=== PATIENT | male | born 1970 | race Caucasian/White ===

== ENCOUNTER 2020-02-16 06:00 | Day surgery (SDC) | payer OTHER ==
[2020-02-11 10:21] VITALS: BMI 45.6
[2020-02-16] MEDS ORDERED: PROPOFOL 20 ML ONE ×2 (07:15→07:31)
[2020-02-16] MEDS ORDERED: KETAMINE HCL 500 MG/10 ML VIAL ONE ×2 (07:15→07:39)
[2020-02-16] MEDS ORDERED: SUCCINYLCHOLINE CHLORIDE 200 MG/10 ML SYRINGE ONE ×2 (07:15→07:31)
[2020-02-16 08:28] VITALS: TEMP 98.4
[2020-02-16 08:51] VITALS: BP 103/65; PULSE 80
== END 2020-02-16 09:00 | disposition home or self-care (01) ==
LOC: FECT 06:00
PROVIDERS: ATTEND Psychiatry & Neurology Psychiatry
PROC: GZB4ZZZ Other Electroconvulsive Therapy (ICD-10-PCS; principal; 2020-02-16 09:00)
DX: F33.2 Major depressive disorder, recurrent severe without psychotic features (principal)
CPT/HCPCS: 90870; 94760; U0003

== ENCOUNTER 2020-02-19 06:47 | Day surgery (SDC) | payer OTHER ==
[2020-02-11 10:27] VITALS: BMI 45.6
[2020-02-19] MEDS ORDERED: PROPOFOL 20 ML ONE (06:53)
[2020-02-19] MEDS ORDERED: SUCCINYLCHOLINE CHLORIDE 200 MG/10 ML SYRINGE ONE (06:54)
[2020-02-19] MEDS ORDERED: ONDANSETRON 4 MG/2 ML VIAL IVPUSH PRN (07:07)
[2020-02-19] MEDS ORDERED: LACTATED RINGERS SOLUTION 1,000 ML IV SCH (07:15)
[2020-02-19] MEDS ORDERED: KETAMINE HCL 500 MG/10 ML VIAL ONE (08:25)
[2020-02-19] MEDS ORDERED: ONDANSETRON 4 MG/2 ML VIAL ONE (08:31)
[2020-02-19] MEDS ORDERED: KETOROLAC TROMETHAMINE 30 MG/1 ML VIAL ONE (08:31)
[2020-02-19 09:34] VITALS: TEMP 97.7
[2020-02-19 10:18] VITALS: BP 105/61; PULSE 72
== END 2020-02-19 10:21 | disposition home or self-care (01) ==
LOC: FECT 06:47
PROVIDERS: ATTEND Psychiatry & Neurology Psychiatry
PROC: GZB4ZZZ Other Electroconvulsive Therapy (ICD-10-PCS; principal; 2020-02-19 08:30)
DX: F32.9 Major depressive disorder, single episode, unspecified (principal)
CPT/HCPCS: 90870; 94760; U0003

== ENCOUNTER 2020-02-23 06:51 | Day surgery (SDC) | payer OTHER ==
[2020-02-23 08:46] VITALS: TEMP 98
[2020-02-23 08:52] VITALS: BMI 48.1
[2020-02-23] MEDS ORDERED: KETAMINE HCL 500 MG/10 ML VIAL ONE (10:00)
[2020-02-23 11:30] VITALS: BP 114/70; PULSE 77
== END 2020-02-23 11:55 | disposition home or self-care (01) ==
LOC: FECT 06:51
PROVIDERS: ATTEND Psychiatry & Neurology Psychiatry
PROC: GZB4ZZZ Other Electroconvulsive Therapy (ICD-10-PCS; principal; 2020-02-23 08:00)
DX: F33.2 Major depressive disorder, recurrent severe without psychotic features (principal)
CPT/HCPCS: 90870; 94760; U0003

== ENCOUNTER 2020-02-26 06:44 | Day surgery (SDC) | payer OTHER ==
[2020-02-17 09:07] VITALS: BMI 48.0
[2020-02-26] MEDS ORDERED: KETAMINE HCL 500 MG/10 ML VIAL ONE (08:40)
[2020-02-26] MEDS ORDERED: KETOROLAC TROMETHAMINE 30 MG/1 ML VIAL ONE (08:43)
[2020-02-26] MEDS ORDERED: ONDANSETRON 4 MG/2 ML VIAL ONE (08:43)
[2020-02-26 09:47] VITALS: TEMP 97.6
[2020-02-26 10:09] VITALS: BP 110/77; PULSE 77
== END 2020-02-26 10:10 | disposition home or self-care (01) ==
LOC: FECT 06:44
PROVIDERS: ATTEND Psychiatry & Neurology Psychiatry
PROC: GZB4ZZZ Other Electroconvulsive Therapy (ICD-10-PCS; principal; 2020-02-26 08:30)
DX: F32.9 Major depressive disorder, single episode, unspecified (principal)
CPT/HCPCS: 90870; 94760

== ENCOUNTER 2020-02-27 06:51 | Day surgery (SDC) | payer OTHER ==
[2020-02-24 09:12] VITALS: BMI 48.1
[2020-02-27] MEDS ORDERED: KETAMINE HCL 500 MG/10 ML VIAL ONE (08:00)
[2020-02-27 09:12] VITALS: TEMP 98.2
[2020-02-27 09:37] VITALS: BP 105/75; PULSE 74
== END 2020-02-27 09:30 | disposition home or self-care (01) ==
LOC: FECT 06:51
PROVIDERS: ATTEND Psychiatry & Neurology Psychiatry
PROC: GZB4ZZZ Other Electroconvulsive Therapy (ICD-10-PCS; principal; 2020-02-27 08:30)
DX: F32.9 Major depressive disorder, single episode, unspecified (principal)
CPT/HCPCS: 90870; 94760; U0003

== ENCOUNTER 2020-03-02 08:53 | Day surgery (SDC) | payer OTHER ==
[2020-03-02 09:30] VITALS: BMI 48.1
[2020-03-02] MEDS ORDERED: KETAMINE HCL 200 MG/20 ML VIAL ONE (11:02)
[2020-03-02 12:05] VITALS: TEMP 97.8
[2020-03-22] MEDS ORDERED: LACTATED RINGERS SOLUTION 1,000 ML IV SCH (08:15)
[2020-03-30 09:43] VITALS: BP 103/73; PULSE 79
== END 2020-03-02 12:20 | disposition home or self-care (01) ==
LOC: FECT 08:53
PROVIDERS: ATTEND Psychiatry & Neurology Psychiatry
PROC: GZB4ZZZ Other Electroconvulsive Therapy (ICD-10-PCS; principal; 2020-03-02 10:00)
DX: F32.9 Major depressive disorder, single episode, unspecified (principal)
CPT/HCPCS: 90870; 94760; U0003

== ENCOUNTER 2020-03-04 06:24 | Day surgery (SDC) | payer OTHER ==
[2020-02-24 10:34] VITALS: BMI 48.0
[2020-03-04] MEDS ORDERED: KETAMINE HCL 500 MG/10 ML VIAL ONE (08:28)
[2020-03-04] MEDS ORDERED: ONDANSETRON 4 MG/2 ML VIAL ONE (08:32)
[2020-03-04] MEDS ORDERED: PROPOFOL 20 ML ONE (08:32)
[2020-03-04] MEDS ORDERED: SUCCINYLCHOLINE CHLORIDE 200 MG/10 ML SYRINGE ONE (08:32)
[2020-03-04] MEDS ORDERED: KETOROLAC TROMETHAMINE 30 MG/1 ML VIAL ONE (08:32)
[2020-03-04 09:16] VITALS: TEMP 97.7
[2020-03-04 10:01] VITALS: BP 120/78; PULSE 78
== END 2020-03-04 10:04 | disposition home or self-care (01) ==
LOC: FECT 06:24
PROVIDERS: ATTEND Psychiatry & Neurology Psychiatry
PROC: GZB4ZZZ Other Electroconvulsive Therapy (ICD-10-PCS; principal; 2020-03-04 08:30)
DX: F32.9 Major depressive disorder, single episode, unspecified (principal)
CPT/HCPCS: 90870; 94760; U0003

== ENCOUNTER 2020-03-08 07:58 | Day surgery (SDC) | payer OTHER ==
[2020-02-26 08:43] VITALS: BMI 48.0
[2020-03-08] MEDS ORDERED: KETAMINE HCL 500 MG/10 ML VIAL ONE (08:55)
[2020-03-08 10:14] VITALS: BP 117/77; PULSE 84; TEMP 98
== END 2020-03-08 10:15 | disposition home or self-care (01) ==
LOC: FECT 07:58
PROVIDERS: ATTEND Psychiatry & Neurology Psychiatry
PROC: GZB4ZZZ Other Electroconvulsive Therapy (ICD-10-PCS; principal; 2020-03-08 07:00)
DX: F33.2 Major depressive disorder, recurrent severe without psychotic features (principal)
CPT/HCPCS: 90870; 94760; U0003

== ENCOUNTER 2020-03-11 09:26 | Day surgery (SDC) | payer OTHER ==
[2020-03-02 16:56] VITALS: BMI 48.1
[2020-03-11] MEDS ORDERED: KETAMINE HCL 500 MG/10 ML VIAL ONE (10:14)
--- OUTSIDE RECORDS SUMMARY | 2020-03-11 10:18 | XMS ---
:1970 Author Organization [facility] Care Team Providers Name Role Phone RITIKA [...] is protected by Article 27-F of the [place] State Public Health law. If you continue you may haveaccess to information: Regarding HIV / AIDS; Provided by facilities licensed or operated by the [facility] Office of Mental Health; or Provided by the [facility] Office for People With Developmental Disabilities. If such information is present, then the following [facility] mandated warning applies: This information has been [...] law may result in a fine or custodial sentence or both. A general authorization for the release of medical or other information is NOT sufficient authorization for further disclosure. Encounters Encounter Providers Location Date Indications Data Source(s ) Outpatient 01/08/2020 03:30:00 [facility] Bela PM EDT - 01/12/2020 [facility] 10:23:35 AM EDT Patient discharged. Attender: MARIYA CATHERINE 01/01/2020 12:00:00 AM Bon [facility] Attender: MAURICIO 12/30/2019 12:00:00 AM [facility] Attender: MARIYA CATHERINE 12/29/2019 12:00:00 AM [facility] 12/25[facility]2019 04:00:00 PM [facility] 06:48:40 [facility] PM EDT Patient discharged. OL 12/25/2019 [facility] 11:59:00 PM EDT Attender: MARIYA 12/25/2019 12:00:00 AM [facility] Attender: SUSI LONGO 12/25/2019 12:00:00 AM [facility] Attender: MAURICIO 12/24/2019 12:00:00 AM [facility] Attender: MARIYA 12/22/2019 12:00:00 AM [facility] Attender: SUSI LONGO 12/22/2019 12:00:00 AM [facility] Attender: MAURICIO 12/19/2019 12:00:00 AM [facility] Attender: MARIYA 12/18/2019 12:00:00 AM [facility] Attender: GLADIS FUNEZ 12/18/2019 12:00:00 AM [facility] Attender: SUSI LONGO 12/17/2019 12:00:00 AM [facility] Attender: MAURICIO 12/16/2019 12:00:00 AM [facility] Attender: MARIYA 12/15/2019 12:00:00 AM [facility] Attender: XANDER COLBERT 12/13/2019 12:00:00 AM Bon [facility] Outpatient 12/12/2019 12:00:00 PM Francisco Javier n [facility] EDT - 12/12/2019 [facility] 01:20:23 PM EDT Patient discharged. Attender: ROSSI 12/08/2019 05:55:36 [facility]2020 [facility] 12:00:00 AM EDT System In c Inpatient Admitter: RITIKA 12/05/2019 12:00:00 General [facility] AM EDT - 12/08/2019 [facility] 03:44:00 PM EDT General Weakness Patient discharged. Outpatient 12/05/2019 12:00:00 AM EDT [facility] 12/01/2019 03:45:00 PM EDT - [facility] 12/01/2019 05:01:16 PM EDT Inc Patient discharged. Outpatient 11/14/2019 01:00:00 PM EDT - [facility] 11/18/2019 11:56:43 AM EDT System Inc Patient discharged. Outpatient 11/10/2019 09:00:00 AM EDT - [facility] 11/10/2019 04:44:05 PM EDT System Inc Patient discharged. Inpatient Admitter: RITIKA CANAS 10/29/2019 12:00:00 AM let hargic [facility] EDT - 11/03/2019 [facility] 04:02:00 PM EDT lethargic Patient discharged. Outpatient 09/15/2019 08:22:58 AM EDT [facility] - 09/15/2019 11:59:00 PM Hospital EDT Outpatient 09/10/2019 04:00:00 PM EDT [facility] Outpatient 09/04/2019 03:15:00 PM EDT [facility] Outpatient 08/19/2019 07:31:00 AM EST [facility] ([facility]) Outpatient 08/18/2019 06:35:00 AM EST [facility] ([facility]) Outpatient 08/17/2019 07:16:00 AM EST [facility] ([facility]) Emergency 08/16/2019 12:00:00 AM EST Shortness of Breath [facility] - 08/16/2019 10:45:00 PM Hospital EST Shortness of Breath Patient discharged. Outpatient 08/11/2019 12:05:00 AM EST [facility] Emergency 08/10/2019 12:00:00 AM EST - Chest P ain [facility] 08/11/2019 01:42:00 AM EST Hospital Chest Pain Patient discharged. Outpatient 07/21/2019 04:15:00 PM EST - [facility] 07/22/2019 10:51:43 AM EST System Inc Patient discharged. Immunizations Vaccine Date Status Description Data Source(s) New in 2012. 09/04/2019 completed Influenza 09/04/2019 [facility] IIV4 12:00:00 AM EDT Vaccine (Quad) [facility] IIV3. This is one 07/19/2018 completed Influenza 07/19/2018, [facility] of two codes 12:00:00 AM EST Vaccine 04/30/2014 Bela replacing CVX 15, He alth which is being [employer] retired. Influenza, 04/01/2016 completed Influenza 04/01/2016 [facility] injectable, MDCK, 12:00:00 AM EDT Vaccine (Quad) Psychiatric preservative [facility] quadrivalent Tdap 12/11/2014 completed Tdap 12/11/2014 [facility] 12:00:00 AM EDT [facility] [employer] [facility] IIV3. This is one 04/30/2014 completed Influenza 07/19/2018, [facility] of two codes 12:00:00 AM EST Vaccine 04/30/2014 Bela replacing CVX 15, He alth which is being [employer] retired. RAMAKRISHNA 06/12/2013 completed Influenza 06/12/2013 [facility] 12:00:00 AM EST Vaccine Moira ity (Trivalent) [facility] Medications Medication Brand Start Product Dose Route Administrative Pharmacy [facility] Indications Reaction Description Data Name Date Form Instructions Instructions Source(s) Propranolol propra 10 mg Oral active essential T stephanie 1 Tab Bon Hydrochlori noloL 2019 tremor by mouth S ecours de 10 MG (BETO 12:00: three (3) Ch arity Oral Tablet AL) 10 00 AM times maty [facility] propranoloL mg EDT Indications: System Inc [...] Tablet tablet 5 mg EDT dose (after Psychiatric OLANZapine last Health (ZyPREXA) modification) S ystem tablet 5 mg on [employer] 12/09/19 at 0900, Until Discontinued Medication [...] on Sun Bela OLANZapine mg 12/07/19 at [facility] (ZyPREXA) 1400, Until Sys tem tablet 2.5 Discontinued I nc mg Medication administered onsite [place] lithium 12/07/2019 300 Oral active 300 mg , Oral, Bon Carbonate carbonate SR 02:00:00 PM mg 2 TIMES DAILY, [facility] 300 MG (LITHOBID) EDT First dose o n Bela Extended tablet 300 Sun 0 at [facility] Release Oral mg 1400, Until System Tablet Discontinued Inc lithium carbonate SR (LITHOBID) tablet 300 mg Medication administered onsite Losartan losartan 12/07/2019 50 Oral active 50 m g, Oral, Bon Potassium 50 (COZAAR) 01:00:00 PM mg D AILY, [facility] MG Oral tablet 50 EDT dose on Sun Bela Tablet mg 12/07/19 at [facility] losartan 1300, Until Syst em (COZAAR) Discontinued Inc tablet 50 mg Medication administered onsite furosemide 74330-712-95 12/07/2019 20 IntraVENous complete d 20 mg, [...] 12/13/19 at 0900 Medication administered onsite furosemide 26433-428-08 12/06/2019 20 IntraVENous complete d edema 20 [...] il mg Discontinued Medication administered onsite 0.9% 7416-3780-00 12/05/2019 100 IntraVENous aborted 100 mL/hr, at [...] mg tablet Inc Shared psychotic disorder (HCC) [place] lithium 11/30/2019 aborted Bon Carbonate 300 carbonate [...] (DULCOLAX) 5 Inc mg EC tablet cariprazine 358036 11/01/2019 6 mg Oral active 6 m [...] t dose on Bela hydrocortisone 11/01/19 at [facility] (HYTONE) 2.5 % 1800, Unti l System ointment Discontinued Inc Medication administered onsite Docusate docusate 10/31/2019 200 Oral active 200 mg, Oral, Bon Sodium 100 sodium 02:00:00 PM mg DAILY , [facility] MG Oral (COLACE) EDT dose on Sun C harity Capsule capsule 200 10/31/19 at [facility] docusate mg 1400, Until Syst em sodium [...] haloperidoL tablet 5 mg EDT ONCE, 1 Psychiatric (HALDOL) dose, [facility] tablet 5 mg Denise System 10/30/19 [facility] at 2100 Medication administered onsite amitriptyline 10/30/2019 150 mg Oral active 1 50 mg, Oral, Bon (ELAVIL) tablet 09:00:00 PM EV AN BEDTIME, [facility] 150 mg EDT First dose on [facility] ity Denise 10/30/19 at [facility] 2100, Until System I nc Discontinued Medication administered onsite Haloperidol 2 haloperidoL 10/30/2019 2 mg Oral aborted 2 mg, Oral, Bon MG Oral (HALDOL) 08:01:20 PM EVERY 6 [facility] Tablet tablet 2 mg EDT HOURS Ch arity haloperidoL NEEDED, [facility] h (HALDOL) Starting Denise Sys tem tablet 2 mg 10/30/[address] [facility] 2000, Until 10/31/19 at 2043, Psychosis, Agitation Medication administered onsite [place] lithium 10/30/2019 300 Oral active 300 mg , Oral, Bon Carbonate carbonate 12:00:00 PM mg 2 T IMES DAILY, [facility] 300 MG Oral tablet 300 EDT First d ose on Bela Tablet mg Denise 10/30/19 at [facility] lithium 1200, Until Syste m carbonate Discontinued In c tablet 300 mg Medication administered onsite Clonazepam 1 clonazePAM 10/30/2019 1 mg Oral active 1 mg, Oral, 2 Bon MG Oral (KlonoPIN) 12:00:00 PM TIME S DAILY, [facility] Tablet tablet 1 mg EDT First dose on Psychiatric clonazePAM [facility] 10/30/19 at [facility] (KlonoPIN) 1200, Until Sy stem tablet [address] [facility] Medication administered onsite 0.9% 4521-8625-27 10/29/2019 100 IntraVENous aborted 100 mL/hr, at Bon sodium 02:55:00 PM mL/h 100 mL/hr, [facility] chloride EDT IntraVENous, Jagruti rity infusion CONTINUOUS, [facility] Starting Wed System 10/29/[address] [facility] 1455, Until 11/01/19 at 1446 Medication administered onsite 0.4 ML enoxaparin 10/29/2019 40 SubCUTAneous active 40 mg, Bon Enoxaparin (LOVENOX) 02:55:00 PM mg Gallardo bCUTAneous, [facility] sodium 100 injection 40 EDT EVERY 24 Bela MG/ML mg HOURS, [facility] Prefilled dose on Sun Sys tem Syringe 10/29/[address] [facility] enoxaparin 1455, Until (LOVENOX) Discontinued injection 40 mg Medication administered onsite Acetaminophen acetaminophen 10/29/2019 650 Oral active 650 mg, Oral, Bon 325 MG Oral (TYLENOL) 02:44:40 PM mg E VERY 4 HOURS [facility] Tablet tablet 650 mg EDT NEEDED , Bela acetaminophen Starting We [facility] (TYLENOL) [facility] mg 1444, Until Inc Discontinued, Mild Pain, Fever Medication administered onsite sodium 26684-008-57 10/29/2019 mL IntraVENous active 5-40 mL, Bon chloride 02:00:00 PM IntraVENo us, [facility] (NS) flush EDT EVERY 8 Charit y 5-40 mL HOURS, First [facility] dose on Sun System 10/29/19 at Inc 1400, Until Discontinued Medication administered onsite sodium 50944-671-19 10/29/2019 mL IntraVENous active 5-40 mL, Bon [...] XL) 150 mg tablet Vraylar 3 mg 78080-370-09 09/03/2019 6 Oral aborted depre ssion Take [...] EST NOW, 1 Bela chewable tablet dose, [facility] 162 mg 08/16/19 System at 2103 Inc Medication administered onsite famotidine 08/16/2019 20 IntraVENous aborted 20 mg, Bon (PF) (PEPCID) 09:02:00 PM mg Intr aVENous, [facility] 20 mg in 0.9% EST EVERY 12 Ch arity sodium HOURS, [facility] chloride 10 dose on Sat S ystem mL injection 08/16/19 at [facility] 2102, Until Discontinued Medication administered onsite methylPREDNISolone 423969 08/16/2019 125 IntraVENous comple hyun 125 mg, Bon (PF) (Solu-MEDROL) 09:02:00 PM mg IntraVENous, [facility] injection 125 mg EST NOW, 1 d ose, Bela 08/16/19 Health at 2102 System Inc Medication administered onsite 0.9% 9073-3551-71 08/16/2019 1000 IntraVENous completed 1,000 mL, at [...] mg tablet for 3 System days. Inc [place] lithium 08/16/2019 2 Oral active Take 2 [...] back pain due to trauma VRAYLAR 6 81027-093-49 07/07/2019 6 mg Oral aborted Bipolar Take [...] System DAILY Inc NEEDED FOR ANXIETY cariprazine 154387 6 mg Oral aborted Take 6 B [...] ID Covered Covered Policy Plan Coverage type constitution party ID constitution party's [place] Inform ation relationship to bol[place] [facility] [id number] [facility] [id number] [facility]ALTH [facility] [id number] [facility] HMO [id number] [facility] Commerical [id number] [facility] [id number] [facility] [id number] HEALTH PLAN [facility] [id number] PLAN [facility] [id number] 900 HEALTH PLAN POLO [id number] POLO [id number] CIGNA O [id number] [facility] PPO [id number] [place] 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 [id number] [facility] [id number] 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 [id number] COMPENSATION [facility] [id number] GENERIC [id number] COMMERCIAL [facility] [id number] PLAN [facility] GENERIC Commerical [id number] [facility] PPO [id number] PLAN [facility] [id number] PLAN 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 [id number] [facility] [id number] [facility] HEALTH [facility] PPO [id number] [place] [address] Problems, Conditions, and Diagnoses Code Display Name Description Problem Type Effective Data Dates Source(s) T88.7XXA Cak-dspl-kgtkiwe Ghs-igvp-bdmzxil [id number] 12/05/2019 Francisco Javier n [facility] adverse reaction to adverse reaction to 12:00:0 0 AM Bela medication medication [facility] [employer] [facility] T50.905A Adverse drug Adverse drug 97589461 12/05/2019 [place] s reaction, initial reaction, initial 12:00:00 AM Psychiatric encounter encounter [facility] [employer] G93.40 Encephalopathy acute Encephalopathy acute 85153913 12/04 [facility] 12:00:00 AM Bela Jooce [employer] F31.4 Bipolar disorder Bipolar disorder 55637147 10/29/2019 Francisco Javier n [facility] with severe with severe 12:00:00 AM Bela depression depression [facility] [employer] E55.9 Vitamin D deficiency Vitamin D deficiency 11800140 09/03 [facility] 12:00:00 AM [facility] [employer] [facility] F41.8 Mixed anxiety and Mixed anxiety and [id number] 09/04/2019 [facility] depressive disorder depressive disorder 12:00:0 0 AM [email or web address] E66.01 Morbid obesity Morbid obesity 85818956 07/21/2019 [facility] 12:00:00 AM [employer] Z98.84 Status post gastric Status post gastric 06121017 020 [facility] bypass for obesity bypass for obesity 12:00:00 AM [employer] F32.9 Depressive disorder Depressive disorder [id number] 020 [facility] 12:00:00 AM [employer] F31.9 Bipolar disorder Bipolar disorder 19089143 07/21/2019 Francisco Javier n [facility] 12:00:00 AM [employer] F41.9 Anxiety Anxiety 61573259 07/21/2019 [facility] 12:00:00 AM [employer] F32.9 Depression Depression 10650958 07/20/2018 [facility] 12:00:00 AM [employer] E66.01 Severe obesity Severe obesity 99578434 07/19/2018 [facility] 12:00:00 AM [employer] [id number] Spells Spells 47377757 04/08/2016 [facility] 12:00:00 AM [email or web address] G40.909 Seizure disorder Seizure disorder 01305851 04/30/2014 Francisco Javier n [facility] 12:00:00 AM [employer] M79.2 Neuropathic pain of Neuropathic pain of 06542752 014 [facility] shoulder shoulder 12:00:00 AM [employer] G47.00 Insomnia Insomnia 48465746 11/04/2013 [facility] 12:00:00 AM [employer] Z98.84 H/O gastric bypass H/O gastric bypass 89484230 3 [facility] 12:00:00 AM [employer] G25.2 Other specified Other specified Diagnosis 01/08/2020 [facility] forms of tremor forms of tremor 03:17:29 PM [facility] [employer] F31.4 Bipolar disorder, Bipolar disorder, Diagnosis 12/25/2019 [facility] - current episode current episode 04:40:00 PM Goo d depressed, severe, depressed, severe, EDT Yazidi without psychotic without psychotic Hospital features features F41.9 Anxiety disorder, Anxiety disorder, Diagnosis 12/25/2019 [facility] unspecified unspecified 04:04:24 PM [facility] R25.1 Tremor, unspecified Tremor, unspecified Diagnosis 020 [facility] 04:04:24 PM [facility] Z98.84 Bariatric surgery Bariatric surgery Diagnosis 12/25/2019 [facility] status status 04:04:24 PM [facility] T88.7XXA Unspecified adverse Unspecified adverse Diagnosis 020 [facility] - effect of drug or effect of drug or 11:10:37 AM Good medicament, initial medicament, initial [facility] encounter encounter Hospital G93.40 Encephalopathy, Encephalopathy, Diagnosis 12/05/2019 [facility] - unspecified unspecified 11:10:37 AM [facility] R41.82 Altered mental Altered mental Diagnosis 12/05/2019 [facility] - status, unspecified status, unspecified 11:10:3 7 AM [facility] F51.04 Psychophysiologic Psychophysiologic Diagnosis 11/14/2019 [facility] insomnia insomnia 01:22:52 PM [facility] F32.2 Major depressive Major depressive Diagnosis 09/15/2019 [facility] - disorder, single disorder, single 08:22:58 AM G ood episode, severe episode, severe EDT Aidan ritan without psychotic without psychotic Hospital features features F41.8 Other specified Other specified Diagnosis 09/04/2019 [facility] anxiety disorders anxiety disorders 03:49:01 PM [facility] F32.2 Major depressive Major depressive Diagnosis 09/04/2019 Francisco Javier n [facility] disorder, single disorder, single 03:49:01 PM C harity episode, severe episode, severe EDT Heal th without psychotic without psychotic System Inc features features Z23 Encounter for Encounter for Diagnosis 09/04/2019 [facility] immunization immunization 03:49:01 PM [facility] T78.40XA Allergy, Allergy, Diagnosis 08/16/2019 [facility] - unspecified, initial unspecified, initial 08:39 :16 PM Good encounter encounter [facility] R06.00 Dyspnea, unspecified Dyspnea, unspecified Diagnosis 08/10 [facility] - 11:27:27 PM [facility] F31.75 Bipolar disorder, in Bipolar disorder, in Diagnosis 07/21 [facility] partial remission, partial remission, 04:40:28 PM Bela most recent episode most recent episode EST Health depressed depressed [facility] [phone] essential tremor Diagnosis [facility] [id number] Bipolar disorder Diagnosis [facility] with severe Psychiatric depression ([facility]) [facility] [id number] Anxiety Diagnosis Bon [facility] [phone] hypertension Diagnosis Bon [facility] [phone] depression Diagnosis [facility] [phone] depression Diagnosis [facility] [phone] edema Diagnosis [facility] [phone] depression Diagnosis [facility] [phone] evangelina associated Diagnosis [facility] with bipolar [facility] 1255 1255 hypertension Diagnosis [facility] [id number] Anxiety Diagnosis Bon [facility] 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 [id number] Acute low back pain Diagnosis Bon [facility] due to trauma [facility] [id number] Bipolar disorder, in Diagnosis [facility] partial remission, Charit y most recent episode Healt h depressed ([facility]) System In c [id number] Herpes zoster Diagnosis Bon [facility] cephalicus [facility] Surgeries/Procedures Procedure Description Date Indications Data Source(s) HC HC Routine 12/25/2019 Bipolar 12/25/2019 Bipolar Francisco Javier n LITHIUM LITHIUM 4:41 PM EDT disorder 04:41:00 PM disorde r [facility] with severe EDT with severe Psychiatric depression depression He alth ([facility]) ([facility]) System Inc Bipolar disorder with severe depression ([facility]) GLUCOSE, POC GLUCOSE, POC Routine 12/08/2019 12/08/2019 Bon 11:35 AM 11:35:00 AM Sec ours EDT EDT [facility] METABOLIC METABOLIC Routine 12/07/2019 12/07/2019 Bon PANEL, BASIC PANEL, BASIC 4:40 AM EDT 04:40:00 A M [facility] EEG 12-26 HR EEG 12-26 HR Routine 12/06/2019 12/06/2019 Bon W/VIDEO W/VIDEO 10:25 AM 10:25:08 AM [facility] LITHIUM HC LITHIUM Routine 12/06/2019 12/06/2019 Bon 4:25 AM EDT 04:25:00 AM [facility] HC LACTIC ACID HC LACTIC ACID STAT 12/05/2019 020 Bon 7:20 PM EDT 07:20:00 PM [facility] HC AMMONIA HC AMMONIA STAT 12/05/2019 12/05/2019 Bon 7:20 PM EDT 07:20:00 PM [facility] MRI BRAIN WO MRI BRAIN WO STAT 12/05/2019 12/05/2019 Bon CONT CONT 4:50 PM EDT 04:50:12 PM [facility] EEG 12-26 HR EEG 12-26 HR STAT 12/05/2019 12/05/2019 Bon W/VIDEO W/VIDEO 3:19 PM EDT 03:19:24 PM [facility] CULTURE, URINE CULTURE, URINE Routine 12/05/2019 020 Bon 2:45 PM EDT 02:45:00 PM [facility] URINALYSIS W/ URINALYSIS W/ STAT 12/05/2019 0 Bon RFLX RFLX 2:45 PM EDT 02:45:00 PM [facility] MICROSCOPIC MICROSCOPIC [facility] BILIRUBIN, BILIRUBIN, Routine 12/05/2019 12/05/2019 Bon CONFIRM CONFIRM 2:45 PM EDT 02:45:00 PM [facility] HC LACTIC ACID HC LACTIC ACID STAT 12/05/2019 020 Bon 12:40 PM 12:40:00 PM [facility] C[facility]URE HC CULTURE STAT 12/05/2019 12/05/2019 Bon BLOOD BLOOD 12:38 PM 12:38:00 PM Sec ours EDT EDT [facility] PROTHROMBIN PROTHROMBIN STAT 12/05/2019 12/05/2019 Bon TIME + INR TIME + INR 12:38 PM 12:38:00 PM [facility] EDT EDT [facility] CBC WITH CBC WITH STAT 12/05/2019 12/05/2019 Bon AUTOMATED DIFF AUTOMATED DIFF 12:38 PM 12:38:00 PM [facility] EDT EDT [facility] HC TROPONIN I HC TROPONIN I STAT 12/05/2019 0 Bon QUANT QUANT 12:38 PM 12:38:00 PM Sec ours EDT EDT [facility] METABOLIC METABOLIC STAT 12/05/2019 12/05/2019 Bon PANEL, PANEL, 12:38 PM 12:38:00 PM Sec ours COMPREHENSIVE COMPREHENSIVE EDT EDT [facility] MAGNESIUM MAGNESIUM STAT 12/05/2019 12/05/2019 Bon 12:38 PM 12:38:00 PM Sec ours EDT EDT [facility] HC LITHIUM HC LITHIUM STAT 12/05/2019 12/05/2019 Bon 12:38 PM 12:38:00 PM Sec ours EDT EDT [facility] CT HEAD WO CT HEAD WO STAT 12/05/2019 12/05/2019 Bon CONT CONT 12:30 PM 12:30:54 PM Sec ours EDT EDT [facility] HC CULTURE HC CULTURE STAT 12/05/2019 12/05/2019 Bon BLOOD BLOOD 12:30 PM 12:30:00 PM Sec ours EDT EDT [facility] XR PELV AP XR PELV AP STAT 12/05/2019 12/05/2019 Bon ONLY ONLY 12:14 PM 12:14:58 PM Sec ours EDT EDT [facility] XR CHEST PORT XR CHEST PORT STAT 12/05/2019 0 Bon 12:14 PM 12:14:51 PM Sec ours EDT EDT [facility] RT--OXYGEN RT--OXYGEN STAT 12/05/2019 12/05/2019 Bon CANNULA CANNULA 11:20 AM 11:20:37 AM [facility] EDT EDT [facility] EEG DIGITAL EEG DIGITAL Routine 12/05/2019 12/05/2019 Bon ANALYSIS ANALYSIS 11:10 AM 11:10:37 AM S [facility] EDT EDT [facility] CBC WITH CBC WITH STAT 10/30/2019 10/30/2019 Bon AUTOMATED DIFF AUTOMATED DIFF 6:40 AM EDT 06:40: 00 AM [facility] EDT [facility] METABOLIC METABOLIC STAT 10/30/2019 10/30/2019 Bon PANEL, BASIC PANEL, BASIC 6:40 AM EDT 06:40:00 A M [facility] EDT [facility] URINALYSIS W/ URINALYSIS W/ STAT 10/29/2019 0 Bon RFLX RFLX 6:34 PM EDT 06:34:00 PM [facility] MICROSCOPIC MICROSCOPIC EDT [facility] XR CHEST PORT XR CHEST PORT STAT 10/29/2019 0 Bon 12:09 PM 12:09:04 PM [facility] EDT EDT [facility] CT HEAD WO CT HEAD WO STAT 10/29/2019 10/29/2019 Bon CONT CONT 11:47 AM 11:47:42 AM [facility] EDT EDT [facility] HC GLUCOSE HC GLUCOSE Routine 10/29/2019 10/29/2019 Bon POCT POCT 11:26 AM 11:26:00 AM [facility] EDT EDT [facility] PROTHROMBIN PROTHROMBIN STAT 10/29/2019 10/29/2019 Bon TIME + INR TIME + INR 10:45 AM 10:45:00 AM [facility] EDT EDT [facility] CBC WITH CBC WITH STAT 10/29/2019 10/29/2019 Bon AUTOMATED DIFF AUTOMATED DIFF 10:45 AM 10:45:00 AM [facility] EDT EDT [facility] HC PARTIAL HC PARTIAL STAT 10/29/2019 10/29/2019 Bon THROMBOPLASTIN THROMBOPLASTIN 10:45 AM 10:45:00 AM [facility] / PTT / PTT EDT EDT [facility] METABOLIC METABOLIC STAT 10/29/2019 10/29/2019 Bon PANEL, PANEL, 10:45 AM 10:45:00 AM [facility] COMPREHENSIVE COMPREHENSIVE EDT EDT [facility] HC LITHIUM HC LITHIUM STAT 10/29/2019 10/29/2019 Bon 10:45 AM 10:45:00 AM [facility] EDT EDT [facility] XR SPINE LUMB XR SPINE LUMB Routine [...] n [facility] 9:00 PM EST 02:00:00 AM [facility] I nc CBC WITH AUTOMATED CBC WITH STAT 08/16/2019 0 [facility] DIFF AUTOMATED DIFF 9:00 PM EST 02:00:00 AM [facility] I nc TROPONIN I TROPONIN I STAT 08/16/2019 08/17/2019 [facility] 9:00 PM EST 02:00:00 AM [facility] I nc METABOLIC PANEL, METABOLIC PANEL, STAT 08/16/2019 [facility] COMPREHENSIVE COMPREHENSIVE 9:00 PM EST 02:00:00 AM [facility] I nc MAGNESIUM MAGNESIUM STAT 08/16/2019 08/17/2019 [facility] 9:00 PM EST 02:00:00 AM [facility] I nc LITHIUM LITHIUM STAT 08/16/2019 08/17/2019 Francisco Javier n [facility] 9:00 PM EST 02:00:00 AM [facility] I nc INFLUENZA A <td><content ID="[id number]">INFLUENZA A & B 07/26 Bon & B AG AG (RAPID 05:18:00 AM [facility] (RAPID TEST) TEST)</content></td><td>STAT</td><td>08/11/2019 [facility] 12:18 AM EST</td><td></td><td><paragraph Health styleCode="header">Results for this procedure are System in the <content Inc styleCode="[id number]">results section</content>.</paragraph></td> PROTHROMBIN PROTHROMBIN STAT 08/11/2019 08/11/2019 Bon TIME + INR TIME + INR 12:01 AM 05:01:00 AM [facility] D DIMER D DIMER STAT 08/11/2019 08/11/2019 Francisco Javier n 12:01 AM 05:01:00 AM Sec [facility] CBC WITH CBC WITH STAT 08/11/2019 08/11/2019 Bon AUTOMATED DIFF AUTOMATED DIFF 12:01 AM 05:01:00 AM [facility] PTT PTT STAT 08/11/2019 08/11/2019 Francisco Javier n 12:01 AM 05:01:00 AM Sec [facility] TROPONIN I TROPONIN I STAT 08/11/2019 08/11/2019 Bon 12:01 AM 05:01:00 AM Sec ours [facility] METABOLIC METABOLIC STAT 08/11/2019 08/11/2019 Bon PANEL, PANEL, 12:01 AM 05:01:00 AM [facility] COMPREHENSIVE COMPREHENSIVE [facility] MAGNESIUM MAGNESIUM STAT 08/11/2019 08/11/2019 Bon 12:01 AM 05:01:00 AM Sec [facility] LITHIUM LITHIUM STAT 08/11/2019 08/11/2019 Francisco Javier n 12:01 AM 05:01:00 AM Sec [facility] LACTIC ACID LACTIC ACID STAT 08/11/2019 08/11/2019 Bon 12:01 AM 05:01:00 AM Sec [facility] BNP BNP STAT 08/11/2019 08/11/2019 Francisco Javier n 12:01 AM 05:01:00 AM Sec [facility] RT--OXYGEN RT--OXYGEN STAT 08/10/2019 08/11/2019 Bon CANNULA CANNULA 11:51 PM 04:51:27 AM Sec [facility] EST EST Bela [employer] [facility] EKG, 12 LEAD, EKG, 12 LEAD, STAT 08/10/2019 0 Bon INITIAL INITIAL 10:14 PM 03:14:27 AM Sec [facility] EST EST [facility] XR SMALL BOWEL XR SMALL BOWEL Routine 08/02/2018 Morbid 019 Morbid Bon SERIES SERIES 11:01 AM obesity 04:01:14 PM obesity [facility] EST (HCC) EST (HCC) [facility] Morbid obesity (HCC) CBC WITH AUTOMATED CBC WITH STAT 07/12/2018 9 [facility] DIFF AUTOMATED DIFF 12:40 AM EST 05:40:00 AM [facility] I nc TROPONIN I TROPONIN I STAT 07/12/2018 07/12/2018 [facility] 12:40 AM EST 05:40:00 AM [facility] I nc METABOLIC PANEL, METABOLIC PANEL, STAT 07/12/2018 [facility] COMPREHENSIVE COMPREHENSIVE 12:40 AM EST 05:40:0 0 AM [facility] I nc MAGNESIUM MAGNESIUM STAT 07/12/2018 07/12/2018 [facility] 12:40 AM EST 05:40:00 AM [facility] I nc RT--OXYGEN CANNULA RT--OXYGEN STAT 07/12/2018 019 [facility] CANNULA 12:21 AM EST 05:21:15 AM [facility] I nc Results ID Date Data Source [id number] 03/04/2020 09:50:00 AM EDT [facility] Name Value Range Interpretation Description Data Sup porting Code Source(s) Document(s ) SARS [facility] coronavirus 2 RNA This lab was ordered by KANG moy [facility] and reported by [facility]. ID Date Data Source [id number] 03/02/2020 12:15:00 PM EDT [facility] Name Value Range Interpretation Description Data Sup porting Code Source(s) Document(s ) SARS [facility] coronavirus 2 RNA This lab was ordered by KANG FRANCISCO and reported by [facility]. ID Date Data Source [id number] 02/27/2020 09:15:00 AM EDT [facility] Name Value Range Interpretation Description Data Sup porting Code Source(s) Document(s ) SARS [facility] coronavirus 2 RNA This lab was ordered by [facility] and reported by [facility]. ID Date Data Source [id number] 02/23/2020 11:40:00 AM EDT [facility] Name Value Range Interpretation Description Data Sup porting Code Source(s) Document(s ) SARS [facility] coronavirus 2 RNA This lab was ordered by [facility] and reported by [facility]. ID Date Data Source [id number] 02/19/2020 09:56:00 AM EDT [facility] Name Value Range Interpretation Description Data Sup porting Code Source(s) Document(s ) SARS [facility] coronavirus 2 RNA This lab was ordered by [facility] and reported by [facility]. ID Date Data Source [id number] 02/16/2020 08:40:00 AM EDT [facility] Name Value Range Interpretation Description Data Sup porting Code Source(s) Document(s ) SARS [facility] coronavirus 2 RNA This lab was ordered by [facility] and reported by [facility]. ID Date Data Source [id number] 02/13/2020 10:05:00 AM EDT [facility] Name Value Range Interpretation Description Data Sup porting Code Source(s) Document(s ) SARS [facility] coronavirus 2 RNA This lab was ordered by [facility] and reported by [facility]. ID Date Data Source [id number] 02/09/2020 10:25:00 AM EDT [facility] Name Value Range Interpretation Description Data Sup porting Code Source(s) Document(s ) SARS [facility] coronavirus 2 RNA This lab was ordered by [facility] and reported by [facility]. ID Date Data Source [id number] 01/25/2020 09:20:00 AM EDT [facility] Name Value Range Interpretation Description Data Sup porting Code Source(s) Document(s ) 2019 Novel [facility] Coronavirus RNA Interpretation Unspecified Specimen Qualitative CATA Probe Detection This lab was ordered by [place] [id number] [address] [facility]. ID Date Data Source [id number] 12/25/2019 05:54:30 PM EDT [facility] Name Value Range Interpretation Description Data Sup porting Code Source(s) Document(s ) [place] 0.38 0.6-1.2 Below low normal [facility] [Moles/volu MMOL/L [facility]] in Hospital Serum or Plasma ID Date Data Source [id number] 12/23/2019 01:50:56 PM EDT [facility] Discharge SummaryPatient: Maxwell mackey Sex: male DOA: 12/05/2019Date of : 1970 A ge: 49 y.o. LOS: LOS: 3 daysAdmit Date: 12/05/2019Discharge Date: 12/08/2019 Admission Diagnoses: Encephalopathy acute [G93.40];Cgl-gsaw-mgfggox adversereactio n to medication [T88.7XXA];Pws-tais-knhvjak adverse reaction tomedication [T88.7XXA] Discharge Diagnoses: #1 [...] ICD-10-CM: T50.905AICD -9-CM: E947.9 12/05/2019 - Present Zgz-bjrq-vrpsbfy adverse reaction to med ication ICD-10-CM: T88.1AEHSUC-0-BB: 995.20 12/05/2019 - Present Bipolar disorder wit [...] E66.01ICD-9-CM: 278.01 07/19/2018 - Present Spells ICD-10-CM: [id number]: IMO00 01 04/08/2016 - Present Seizure disorder [...] ECT treatment currently n ot availablesecondary to [facility]-19 pandemicConsults: Neurology and Psychiat rySignificant Diagnostic Studies: labs: Microbiology: , radiology: and EEGDisc harge Medications: @DISCHARGEMEDLIST@Activity: Activity as tolerated and PT/OT per Home HealthDiet: Regular DietWound Care: None neededFollo w-up:to follow in office in one weekRitika Canas MD Name Value Range Interpretation Code Description Data Melani rce(s) Supporting Document(s ) ID Date Data Source [id number] 12/09/2019 02:14:04 PM EDT [facility] - [facility] referral made. Walker order faxed t o [facility] [facility] and [facility] do NOT acc ept pts insurance.Faxed to Moriah at [facility] at FAX [phone]. She reports they ne ed to get authfor walker. Have instucted pt to buy own walker IF not authorized.He i s agreeable to buying walker if needs to.Care Management InterventionsPCP Verified by CM: YesTransition of Care Consult (CM Consult[facility] Home Car e: YesCurrent Support Network: Own Home, Lives with SpouseThe Patient and/or Prachi ent Compound Machine Operator was Provided with a Choice of Providerand Agrees with the Discharge Plan?: YesFreedom of Choice List was Provided with Basic Dialogue that Suppor ts thePatient's Individualized Plan of Care/Goals, Treatment Preferences and Sh aresthe Quality Data Associated with the Providers?: YesVeteran Resource Informat ion Provided?: RefusedDischarge LocationDischarge Placement: Home [facility] BY [facility])Pt is discharged , picking him up. reports she has phone number tomake pt a follow up psych appt. [facility] to visit. will buy walker if not [...] Supporting Document(s ) ID Date Data Source [id number] 12/08/2019 03:06:17 PM EDT [facility] I have reviewed discharge instructions w ith [...] Supporting Document(s ) ID Date Data Source [id number] 12/08/2019 03:02:56 PM EDT [facility] Per your note, pt with acute encephalopa thy and toxic Serum [place] level.Please specify the type of encephalopathy in yo ur progress notes: Toxic encephalopathy due to lithium Metabolic encephalopathy due to Other cause (please specify) Clinically unable to determine UnknownPLEASE DOCUM ENT ANY ADDITIONAL DIAGNOSES AND/OR SPECIFICITY IN THE PROGRESSNOTES AND/OR DISCHARGE SUMMARY. Name Value Range Interpretation Code Description Data Melani rce(s) Supporting Document(s ) ID Date Data Source [id number] 12/08/2019 02:40:45 PM EDT [facility] Problem: SuicideGoal: *STG: Remains safe in hospital12/08/2019 [...] Basilio Moshercome: Progressing Towards GoalGoal: *LTG: Identifies Capstory12/08/2019 1440 by Basilio Moshercome: Resolved/Met12/08/2019 1439 by [...] Fall R isk and appropriate interventions in [facility].12/08/2019 1440 by Divya Moshertcome: Resolved/MetNote: Fall Risk [...] Document Harsh Scale and appropriate interventions in [facility] t.12/08/2019 1440 by Ru Mosher: Resolved/MetNote: Pressure [...] Supporting Document(s ) ID Date Data Source [id number] 12/08/2019 02:40:17 PM EDT [facility] Problem: SuicideGoal: *STG: Remains safe in hospitalOutcome: [...] Supporting Document(s ) ID Date Data Source [id number] 12/08/2019 01:18:54 PM EDT [facility] General Daily Progress NoteAdmit Date: Hospital day: .tdSubjective:Psycgm Neuro,and PT assessments reviewed. Patie nt qualifies for discharge. Wifecalled, will bring in clothes. New medical regimen di scussed with the . Willneed [place] level later this week.Current Facility-Adminis tered MedicationsMedication [...] past 8 hrs: BP Temp Pulse Resp PvR43212/07 0816 - - - - 96 %12/08/19 [...] initial encounter (12/05/2019)Active Problems: Encephalopathy acute (12/05/2019) Iak-ecbw-omkyupm adve rse reaction to medication (12/05/2019)Plan: day of discharge. Name Value Range Interpretation Code Description Data Melani rce(s) Supporting Document(s ) ID Date Data Source [id number] 12/08/2019 12:09:30 PM EDT [facility] Problem: Mobility Impaired (Adult and Pe diatric)Goal: [...] y.o. male)Date: 12/08/2019Primary Diagnosis: E ncephalopathy acute [G93.40]Kgk-dywz-saoxyci adverse reaction to medication [T88.7XXA ]Iry-qbdp-reermdc adverse reaction to medication [T88.7XXA]Precautions: Fall ASSESSMENT [...] ty or mortality cardiac cath at [facility] approx 6-8 months ago Other unknown [...] NoneCritical Beh avior:Neurologic State: AlertOrientation Level: Oriented C5Enioteebc: Appropriate for age attention/concentration;Follows commandsSafety/Judgement: Decreased awar [...] Supporting Document(s ) ID Date Data Source [id number] 12/08/2019 11:48:26 AM EDT [facility] Name Value Range Interpretation Description Data Sup porting Code Source(s) Document(s ) Glucose 132 MG/DL 65-110 Above high normal [facility] [Mass/volume] [facility] in Blood by Hospital Automated test strip ID Date Data Source [id number] 12/08/2019 10:35:45 AM EDT [facility] S/O Patient has shown improvement. He re ports that medications are helping him.He denies any side effectsHe denies any cecilia cidal thoughtsHe reports that he sees a psychiatrist [facility] 300 mg bid [place] level in two days Will increase Zyprexa 5 mg Will follow up as requested Name Value Range Interpretation Code Description Data Melani rce(s) Supporting Document(s ) ID Date Data Source [id number] 12/08/2019 07:28:52 AM EDT [facility] Bedside and Verbal shift change report g yesseniaen to TRAM Hurely (oncoming nurse) Annalise DE LEON RN (offgoing nurse). Repor t included the followinginformation SBAR, Kardex, MAR and Recent Results. Name Value Range Interpretation Code Description Data [facility] rce(s) Supporting Document(s ) ID Date Data Source [id number] 12/07/2019 08:26:02 PM EDT [facility] Problem: Falls - Risk ofGoal: *Absence o [...] Supporting Document(s ) ID Date Data Source [id number] 12/07/2019 07:05:28 PM EDT [facility] Verbal shift change report given to Chandrakant Cox RN (oncoming nurse) by Steven Villalobos RN (offgoing nurse). Report inc luded the following information SBAR, Kardex,Intake/Output, MAR, Recent Result s and Cardiac Rhythm on telemetry. Name Value Range Interpretation Code Description Data Melani rce(s) Supporting Document(s ) ID Date Data Source [id number] 12/07/2019 01:30:56 PM EDT [facility] Trent Jacob MD[address] [place] [address] [id number].[facility] Progress NotePatient: Maxwell Bray Sex: male DOA: [...] (LOVENOX) injection 40 mg 40 mg SubCUTAneous F85DNxqjaycpk:Visit VitalsBP 153/85 (BP 1 Location: Left arm, BP Prachi ent Position: At rest)Pulse 96Temp 98.7 F (37.1 C)Resp 20Ht 5' 5.75" (1.67 m)Wt 3 01 lb 1.6 oz (136.6 kg)SpO2 96%BMI 48.97 kg/m Body mass index is 48.97 kg/m .Patient V itals for the past 24 hrs: Temp Pulse Resp BP SkA63912/07/19 1249 - 96 - 153/85 - 0 [...] the time notated as "note time" in [facility]. 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 Seizure disorder ([facility]) G40.909 Spells SSE9099 Severe obesity (HCC) E66.01 Depression F32.9 Anxiety F41.9 Bipolar disorder (HCC) F31.9 Depressive disorder F32.9 Status post g astric bypass for obesity Z98.84 Morbid obesity (HCC) E66.01 Mixed anxiety and depressive disorder F41.8 Vitamin D deficiency E55.9 Bipolar disorder with severe depression ([facility]) F31.4 Encephalopathy acute G93.40 Adverse drug reaction, ini tial encounter T50.905A Kwz-uozh-qmypwxf adverse reaction to medication T88.7XXA 49 year [...] Supporting Document(s ) ID Date Data Source [id number] 12/07/2019 01:02:36 PM EDT [facility] and discussed with Dr Canas .Pt is tearful flat and denies any suicidal thoughts , has been depressed withlithiu m on hold , No Vraylar and he is unable to get his ECT at [facility] And no w will be with [facility] with Dr Womack his lithium level is un therape utic range I will start on lithium , add 2.5mg of zyprexa and lower his klonopin And increase his elavil to 200 mg HSWill get pt followed up with Psychiatry Name Value Range Interpretation Code Description Data Melani rce(s) Supporting Document(s ) ID Date Data Source [id number] 12/07/2019 12:52:32 PM EDT [facility] Problem: Fluid Volume - Risk of, Imbalan cedGoal: *Balanced intake and outputOutcome: Progressing Towards GoalProblem: Patient Education: Go to Patient Education ActivityGoal: Patient/Family EducationOu tcome: Progressing Towards Goal Name Value Range Interpretation Code Description Data Melani rce(s) Supporting Document(s ) ID Date Data Source [id number] 12/07/2019 12:45:20 PM EDT [facility] Problem: Falls - Risk ofGoal: *Absence o [...] Bra den Scale and appropriate interventions in [facility].Outcome: Progressing Toward s GoalNote: Pressure Injury [...] Supporting Document(s ) ID Date Data Source [id number] 12/07/2019 12:24:47 PM EDT [facility] General Daily Progress NoteAdmit Date: Hospital day: [...] injection 40 mg 40 mg SubCUTA neous X31FMhggmusby:Patient Vitals for the past 8 hrs: BP Temp Pulse Resp VcD34112/06 0956 147/86 98.7 F (37.1 C) 95 [...] initial encounter (12/05/2019)Active Problems: Encephalopathy acute (12/05/2019) Qma-vrsw-uuyzyab adve rse reaction to medication (12/05/2019)Plan:To increase activity, diet,klonopin. 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 Jacob. Name Value Range Interpretation Code Description Data Melani rce(s) Supporting Document(s ) ID Date Data Source [id number] 12/07/2019 10:08:27 AM EDT [facility] [place], [place] [address]ZFNBUXY: MAXWELL BRAYMRN: [id number]: [id number]#: [id number] DATE: 12/05/2019LONG TERM MONITORING VIDEO CELLULOSE INSULATION HELPER: Riky Rodriguez HISTORY: The patient is a [...] montages. Digital analysis was performed employing an Zeppelin neuralnetwork program with parameterization and statistical analysi [...] seen, that attenuates with eye opening.There was smnd-kq-wubyfpfm gener alized background slowing.There was no clear focal slowing.ACTIVATION TECHNIQUES: Ph otic stimulation and hyperventilation were notperformed.SLEEP: During drowsiness, there is mild attenuation and slowing of thebackground rhythm. There was normal sleep seen including symmetric vertexwaves, sleep spindles, and K-complexes.OTHER AC TIVITY: There were no clear epileptiform discharges and no seizures orclinical ev ents recorded.DIGITAL ANALYSIS: Variable spectral pattern without significant lef v-gk-nsinultqyrbiifzb. Spikes were artifact in nature.DECEMBER 06 DAILY [...] the awake and asleep states due to wrcb-ch-gwszwscb diffuse cerebraldysfunc tion that improves to mild over the course of the recording. TRENT Gerry JACOB, MDDD: #12/06/2019 10:21:35/SS /[id number]/[id number] #: [id number] / [id number] Name Value Range Interpretation Code Description Data Melani rce(s) Supporting Document(s ) ID Date Data Source [id number] 12/07/2019 07:45:20 AM EDT [facility] Bedside and Verbal shift change report cristi Dove RN (3Loria) (oncomingnurse) by Vy Green RN (offgoing nurse). Report included the following information SBAR, Kardex, MARand Recent Results. Name Value Range Interpretation Code Description Data [facility] rce(s) Supporting Document(s ) ID Date Data Source [id number] 12/07/2019 07:22:41 AM EDT [facility] All leads and head wrapping intact. Day 2 LTM complete. Awaiting instructions tocontinue for day 3 or DC. Name Value Range Interpretation Code Description Data [facility] rce(s) Supporting Document(s ) ID Date Data Source [id number] 12/07/2019 05:19:11 AM EDT [facility] Name Value Range Interpretation Description Data Sup porting Code Source(s) Document(s ) Sodium 138 136-145 [facility] [Moles/volume] mmol/L [facility] in Serum or Hospital Plasma Potassium 3.5 3.5-5.1 [facility] [Moles/volume] mmol/L [facility] in Serum or Hospital Plasma Chloride 106 98-107 [facility] [Moles/volume] mmol/L [facility] in Serum or Hospital Plasma Carbon 27 21-32 [facility] dioxide, total mmol/L [facility] [Moles/volume] Hospital in Serum or Plasma Anion gap in 10 10-20 [facility] Serum or mmol/L [facility] Plasma Hospital Glucose 140 74-106 Above high normal [facility] [Mass/volume] mg/dL [facility] in Serum or Hospital Plasma Urea nitrogen 19 mg/dL 7-18 Above high normal [facility] [Mass/volume] [facility] in Serum or Hospital Plasma Creatinine 0.94 0.70-1.3 [facility] [Mass/volume] mg/dL 0 [facility] in Serum or Hospital Plasma Glomerular >60 [facility] filtration [facility] rate/1.73 sq M Hospital predicted among blacks [Volume Rate/Area] in Serum or Plasma by Creatinine-bas ed formula (MDRD) Glomerular >60 [facility] filtration Y[facility]idi rate/1.73 sq M Hospital predicted among non-blacks [Volume Rate/Area] in Serum or Plasma by Creatinine-bas ed formula (MDRD) (NOTE)Estimated GFR is calculated using the Modification of Diet in RenalDisease (MDRD) Study equation, reported for both Americans(GFRAA) and non- Americans (GFRNA), and normalized to 1.7 4t6fvyz surface area. The physician must decide which value applies tothe patient . The MDRD study equation should only be used inindividuals age 18 or older. It has no t been validated for thefollowing: women, patients with serious comorbid co nditions,or on certain medications, or persons with extremes of body size,muscl e mass, or nutritional status. Calcium [Mass/volume] in Serum 9.1 mg/dL 8.5-10.1 [facility] or Plasma Hospital ID Date Data Source [id number] 12/06/2019 08:12:24 PM EDT [facility] Bedside and Verbal shift change report cristi Loyd RN (oncoming nurse) Estephania Wakefield RN (offgoing nurse). Report included the followinginformation SBAR, Kardex, MAR, Recent Results, and Med Rec Status. Name Value Range Interpretation Code Description Data Melani rce(s) Supporting Document(s ) ID Date Data Source [id number] 12/06/2019 04:57:12 PM EDT [facility] General Daily Progress NoteAdmit Date: Hospital day: [...] (LOVENOX) injection 40 mg 40 mg SubCUTAneous P65INdfarwhus:Patient Vi tals for the past 8 hrs: BP Temp Pulse Resp VqL26712/06/19 1547 (!) 164/100 99.6 F (3 7.6 [...] Time: 12/06/19 4:25 AMResult Value Ref Range [place] level 1.09 0.6 - 1.2 MMOL/L Xr [...] initial encounter (12/05/2019)Active Problems: Encephalopathy acute (12/05/2019) Gih-btto-wfuaunw adve rse reaction to medication (12/05/2019)Plan:To reduce iv fluids, repeat lasix Name Value Range Interpretation Code Description Data Melani rce(s) Supporting Document(s ) ID Date Data Source [id number] 12/06/2019 04:14:48 PM EDT [facility] Consult NoteSubjective:Landen t: Maxwell Bray [...] of morbidity or mortality cardiac cath at [facility] approx 6-8 months ago Other unknown and unspecified cause of morbidity or mortal ity concussions Other unknown and unspecified cause of morbidity or mortal ity "periodic disorientation" Other unknown and unspecified cause of morbidity or mo rtality anxiety Psychiatric disorder anxiety, depressionPsychiatric History: Patient reported he was receiving care in outpatient from [facility] psychiatrist bu t did not discuss details.Substance Use History:Social HistorySubstance and Sexu al ActivityAlcohol Use No Frequency: Never Drinks per session: 1 or 2 Binge freque ncy: NeverSocial HistorySubstance and Sexual ActivityDrug Use NoObjective:Vitals/Phys ical Assessment:Patient Vitals for the past 8 hrs: BP Temp Pulse Resp JoI39712/06/19 081 3 (!) 153/94 100.4 F (38 [...] encounter (12/05/2019)A ctive Problems: Encephalopathy acute (12/05/2019) Kij-lbrs-tzuyxtw adverse re action to medication (12/05/2019)Plan:No current [...] Supporting Document(s ) ID Date Data Source [id number] 12/06/2019 01:18:16 PM EDT [facility] Trent Jacob MD[address], [address] [place] [address] [id number] Progress NotePatient: Maxwell Bray Sex: male DOA: 12/05/2019Date of : 1970 Age: 49 y.o. LOS: LOS: 1 daySubjective:Awake, alert, tremulous, no current complaintsEEG w/ mild to mod gen slowREVIEW OF SYSTEMS: NO CP, SOB, N,V,D, F,CCurrent Facility-Administered MedicationsMedication Dose Route Frequen cy 0.9% sodium chloride infusion 125 mL/hr IntraVENous CONTINUOUS enoxaparin (LOVE NOX) injection 40 mg 40 mg SubCUTAneous S40QAsoowaptk:Visit VitalsBP (!) 153/94 (BP 1 Location: Left arm, BP Patient Position: At rest)Pulse 100Temp 100.4 F (38 C)Resp 18Ht 5' 5.75" (1.67 m)Wt 300 lb (136.1 kg)SpO2 96%BMI 48.79 kg/m Body mass index is 48.79 kg/m .Patient Vitals for the past 24 hrs: Temp Pulse Resp BP HeU94012/06/19 0813 100.4 F (38 C) 100 18 [...] past 24 hours were reviewed both during [employer] daily workflow process and at the time notated as "note time" in [facility]. (It is not time stamped separately in [...] Time: 12/06/19 4:25 AMResult Value Ref Range [place] level 1.09 0.6 - 1.2 MMOL/LCT Results [...] hic pain of shoulder M79.2 Seizure disorder ([facility]) G40.909 Spells SEH1324 Severe ob esity ([facility]) E66.01 Depression F32.9 Anxiety F41.9 Bipolar disorder ([facility]) F31.9 Dep ressive disorder F32.9 Status post gastric bypass for obesity Z98.84 Morbid obesit y ([facility]) E66.01 Mixed anxiety and depressive disorder F41.8 Vitamin D deficiency E55 .9 Bipolar disorder with severe depression ([facility]) F31.4 Encephalopathy acute G93.40 Adverse drug reaction, initial encounter T50.905A Kdj-mtgi-icglqmn adverse react ion to medication T88.7XXA49 year [...] Supporting Document(s ) ID Date Data Source [id number] 12/06/2019 11:43:34 AM EDT [facility] day 1 complete. All leads and head wrapping intact. Day 2 LTM studycommenced and LIVE via WIFI on [facility]. 06/28 Name Value Range Interpretation Code Description Data Melani rce(s) Supporting Document(s ) ID Date Data Source [id number] 12/06/2019 10:48:32 AM EDT [facility] Care Management InterventionsPCP Verifie d by CM: YesCurrent Support Network: Own Home, Lives with SpouseThe Patient and/o r Patient Compound Machine Operator was Provided with a Choice of Providerand Agrees with the Di milton Plan?: YesFreedom of Choice List was Provided with Basic Dialogue that Suppor ts thePatient's Individualized Plan of Care/Goals, Treatment Preferences and Sh aresthe Quality Data Associated with the Providers?: YesVeteran Resource Informat ion Provided?: RefusedDischarge LocationDischarge Placement: HomeCASE YUE LORENZ PSYCHOSOCIAL ASSESSMENTBrian F Asa Admission Marlon e: 12/05/2019MRN: [id number] of : 1970Current date: 12/06/2019 DISCHARGE PLAN: Patient is a 49 year old male admitted to [facility]. CM attempted toreach hi m via [...] services. Open for SNF. Family would like [facility]. CM CCLINKD. CM willfollow.Patient Information:Patients Preferred Name: Glilian anPatidonna Arrived Via: StretcherInformation Obtained From: Spouse(Spouse [...] NoPCP: Ritika Canas MDAdmitting Provider: DIANA Lucero [facility] BINDERY MANAGER: N/APayor: P ayor: [facility] HEALTH PLAN / Plan: [facility] HEALTH PLAN /Product Type: O /Secondary Payor : @SECINSGROUPNAME@Encephalopathy acute [G93.40]Del-uihe-okmzwdj adverse reactio n to medication [T88.7XXA]Pbe-vsmg-vamjrqc adverse reaction to medication [T88.7XXA ]Patient Active Problem ListDiagnosis Code H/O gastric bypass Z98.84 Insomnia G47. 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 Seizure disorder (HCC) G40.909 Spells I [id number] Severe obesity (HCC) E66.01 Depression F32.9 Anxiety F41.9 Bipolar disorder (HCC) F31.9 Depressive disorder F32.9 Status post gastric bypass for ob esity Z98.84 Morbid obesity (HCC) E66.01 Mixed anxiety and depressive disorder F4 1.8 Vitamin D deficiency E55.9 Bipolar disorder with severe depression (HCC) F3 1.4 Encephalopathy acute G93.40 Adverse drug reaction, initial encounter T50.905 A Gak-daww-egysoam adverse reaction to medication T88.7XXASocial HistorySubstan ce [...] Supporting Document(s ) ID Date Data Source [id number] 12/06/2019 07:40:06 AM EDT [facility] 1938: Patient found in bed resting quiet [...] withinreach. Admission done via telephone with pt Balnca.2143: Pt n ow oriented to person, place, and situation; disoriented to time. Ptstates he is not in any pain, and is comfortable. Will continue to monitor.Bedside and Verbal s hift change report given to Shanelle Wakefield RN (oncomingnurse) by Светлана Carter RN (offgoing nurse). Report included the followinginformation SBAR, ED Summary, M AR and Recent Results. Name Value Range Interpretation Code Description Data [facility] rce(s) Supporting Document(s ) ID Date Data Source [id number] 12/06/2019 05:07:27 AM EDT [facility] Name Value Range Interpretation Description Data Sup porting Code Source(s) Document(s ) [place] 1.09 0.6-1.2 [facility] [Moles/volu MMOL/L [facility]] in Hospital Serum or Plasma ID Date Data Source [id number] 12/05/2019 07:59:09 PM EDT [facility] Name Value Range Interpretation Description Data Sup porting Code Source(s) Document(s ) Ammonia 16 UMOL/L 11-32 [facility] [Moles/volum [facility] e] in Plasma Hospital ID Date Data Source [id number] 12/05/2019 07:56:38 PM EDT [facility] Name Value Range Interpretation Description Data Sup porting Code Source(s) Document(s ) Lactate 0.9 0.4-2.0 [facility] [Moles/volu MMOL/L [facility] me] in Hospital Serum or Plasma ID Date Data Source [id number] 12/05/2019 06:42:57 PM EDT [facility] 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 LTM comm enced and LIVE via WIFI on [facility] 06/28 Name Value Range Interpretation Code Description Data Melani rce(s) Supporting Document(s ) ID Date Data Source [id number] 12/05/2019 06:07:34 PM EDT [facility] [id number] [facility] [employer] [facility] 4T OR THOPEDICS [address] [facility] [address] [phone] Maxwell Bray (Male) [id number] ES I 3 ED Dispo:ADMIT Chief Complaint: Fall, Fatigue Diagnosis: Altered mental status, unspecified altered mental status type [] Adverse drug reaction, initial encounter [] Encephalopathy acute [] Obv-qdwj-bqqrgdh adverse effect of medication, subsequent encounter [] Bipolar disorder with severe depression (HCC) [] H/O gastric bypass [] Andrez nt Providers: Attending: Patsy Manzo; Kristy Otero; Cristi Canas Consulting Provider: Jose Centeno; Cristi Canas; Javier Khan; Cristi Frazier Primary Nurse: BAILEY GambleN: [phone] [employer] [id number] - [facility] MrnMRN: [id number] [employer] [id number] - [facility] Age SexDOB 1970 AGE 49 SEX Male Primary Care Provider: Ritika Canas MD Phone: Allergies: (No Known Allergies)Date Reviewed: 12/05/2019Reviewed by: Ritika Canas MD - Review CompleteED Provider Notes: All notesHNO ID: [id number]: Julio Manzo MDService: EMERGENCYAuthor Type: Physici anFiled: [...] morbidity or mortality cardiac cath at [facility] approx 6-8 months ag o Other [...] week Gets together: Once a week Attends pentecostal service: More than 4 times per year [...] Calculation (Bez et) 515 ms Calculated P [place] 40 degrees Calculated R [place] 41 degrees Calculated T [place] 147 degrees Diagnosis Sinus tachycardiaProbable left atrial [...] Time: 12/05/19 12:38 PMResult Value Ref Range [place] level 1 .53 (HH) 0.6 - 1.2 MMOL/LLACTIC ACID Collection Time: 12/05/19 12:40 PMResult Value Ref Range Lactic acid 1.1 0.4 - 2.0 MMOL/LEKG:Sinus tachycardia at 100 BPM, normal axis, nothing acute.Interpreted by Julio Manzo MD11:20 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Interpreted [...] mental status, unspecified altered mental status type R41.85668.97Patient c ondition at time of disposition: StableI [...] thediagnostic studies, unless otherwise noted.+ED Orde rs [id number] 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 - ED ONLY [#[id number]] Priority: STAT Class: Hospital Performe d Standing Order Information Remaining Occurrences:0 Interval:Continuous Last release d:12/05/2019 Released orders: SunDec 05, 2019 11:20 AM by: JULIO MANZO Type: -> Bedside N [id number] PULSE OXIMETRY CONTINUOUS [#[id number]] Priority: STAT Class: Hospital Performe d Standing Order Information Remaining Occurrences:0 Interval:CONTINUOUS Last release d:12/05/2019 Released orders: SunDec 05, 2019 11:20 AM by: JULIO MANZO [id number] PULSE OXIMETRY SPOT CHECK [#[id number]] Priority: STAT Class: Hospital Performed Standing Order Inf ormation Remaining Occurrences:0/1 Interval:ONE TIME Last released:12/05/2019 Release d orders: SunDec 05, 2019 11:20 AM by: JULIO MANZO [id number] OBTAIN OLD EKG [ #[id number]] Priority: Routine Class: Hospital Performed Standing Order Information Remainin g Occurrences:0/1 Interval:ONE TIME Last released:12/05/2019 Released orders : SunDec 05, 2019 11:20 AM by: JULIO MANZO [id number] 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 - ED ONLY [# [id number]] Priority: STAT Class: Hospital Performed Type: -> Bedside Released on: 12/05/2019 11:20 AM [id number] PULSE OXIMETRY CONTINUOUS [#[id number]] Priority: STAT Class: Hospital Performe d Released on: 12/05/2019 11:20 AM [id number] PULSE OXIMETRY SPOT CHECK [#[id number]] Priori ty: STAT Class: Hospital Performed Released on: 12/05/2019 11:20 AM [id number] OBTAIN OLD EKG [#[id number]] Priority: STAT Class: Hospital Performed Released on: 12/05/2019 11:20 AM [id number] VITAL SIGNS PER UNIT ROUTINE [#[id number]] Priority: STAT Class: Hospital Performed Stand ing Order Information Remaining Occurrences:0/1 Interval:CONTINUOUS Last released :12/05/2019 Released orders: SunDec 05, 2019 2:41 PM by: RITIKA CANAS Comment:More frequent ly if Indicated. [id number] BEDREST, COMPLETE [#[id number]] Priority: STAT Class: H ospital Performed Standing Order Information Remaining Occurrences:0/1 Interval:CONTIN UOUS Last released:12/05/2019 Released orders: SunDec 05, 2019 2:41 PM by: RITIKA CANAS [id number] NOTIFY PROVIDER: VITAL SIGNS CHANGES [#[id number]] Priority: STAT Class: Hospital Performe d Standing [...] Less than 120 ml in 4 hours [id number] APPLY/MAINTAIN SEQUENTIAL COMPRESSIO* [# [id number]] Priority: STAT Class: Hospital Performed Standing Order Information Remaining Occurre nces:0/1 Interval:CONTINUOUS Last released:12/05/2019 Released orders: SunDec 05, 2019 2:41 PM by: RITIKA CANAS [id number] VITAL SIGNS PER UNIT ROUTINE [#[id number]] Priorit y: STAT Class: Hospital Performed Comment:More frequently if Indicated. Released on: 12/05/2019 2 :41 PM [id number] BEDREST, GALLO [#[id number]] Priority: STAT Class: Hospital Performe d Released on: 12/05/2019 2:41 PM [id number] NOTIFY PROVIDER: VITAL SIGNS CHANGES [#[id number]] Priority: STAT Class: Hospital Performed Temp -> [...] carmen rs Released on: 12/05/2019 2:41 PM [id number] APPLY/MAINTAIN SEQUENTIAL COMPRESSIO* [#[id number]] P riority: STAT Class: Hospital Performed Released on: 12/05/2019 2:41 PM [id number] RT--OXYGEN CANNULA [#[id number]] Priority: STAT Class: Hospital Performed Standing Order Information Remaining Occurrences:0/1 Interval:CONTINUOUS Last released:12/05/2019 Released o rders: SunDec 05, 2019 11:20 AM by: JULIO MANZO LPM -> 2 Indications for O2? -> CHEST PAIN [id number] RT--OXYGEN CANNULA [#[id number]] Priority: STAT Class: Hospital Performe d LPM -> 2 Indications for O2? -> CHEST PAIN Released on: 12/05/2019 11:20 AM [id number] DIET NPO [#[id number]] Canceled Priority: STAT Class: Hospital Performed Cancele d by RITIKA CANAS on SunDec 05, 2019 2:41 PM Reason: None Comment: Standing Order Information Remaining Occurrences:0/1 Interval:DIET EFFECTIVE NOW Last released:12/05/2019 Release d orders: SunDec 05, 2019 11:20 AM by: JULIO MANZO NPO options: -> With Meds [id number] DIET NPO [#[id number]] Canceled Priority: STAT Class: Hospital Performed Cancele d by RITIKA CANAS on SunDec 05, 2019 2:41 PM Reason: None Comment: NPO options: -> With Meds Released on: 12/05/2019 11:20 AM [id number] DIET NPO [#[id number]] Priority: S TAT Class: Hospital Performed Standing Order Information Remaining Occurrences:0/1 Inter haile:DIET EFFECTIVE NOW Last released:12/05/2019 Released orders: SunDec 05, 2019 2:41 PM by: RITIKA CANAS [id number] DIET NPO [#[id number]] Priority: STAT Class: H ospital Performed Released on: 12/05/2019 2:41 PM [id number] SALINE LOCK IV [#[id number]] Priority: STAT Class: Hospital Performed Standing Order Information Remaining Occurrences:0 /1 Interval:ONE TIME Last released:12/05/2019 Released orders: SunDec 05, 2019 11:20 AM by: JULIO MANZO IVT11 SALINE LOCK IV [#[id number]] Priority: STAT Cl ass: Hospital Performed Released on: 12/05/2019 11:20 AM [id number] METABOLIC PANEL, COMPREHENSIVE [# [id number]] Priority: STAT Class: ER Collect Standing Order Information Remaining Occurrences:0 /1 Interval:ONE TIME Last released:12/05/2019 Released orders: SunDec 05, 2019 11:20 AM by: JULIO MANZO [id number] CBC WITH AUTOMATED DIFF [#[id number]] Priority: STAT Cl ass: ER Collect Standing Order Information Remaining Occurrences:0/1 Interval:ONE TI ME Last released:12/05/2019 Released orders: SunDec 05, 2019 11:20 AM by: JULIO MANZO [id number] TROPONIN I [#[id number]] Priority: STAT Class: ER Collect Sta nding Order Information Remaining Occurrences:0/1 Interval:ONE TIME Last released:0 12/05/2019 Released orders: SunDec 05, 2019 11:20 AM by: JULIO MANZO [id number] MAGNESIUM [#[id number]] Priority: STAT Class: ER Collect Standing Order Information Remaining Occurrences:0/1 Interval:ONE TIME Last released:12/05/2019 Released orders : SunDec 05, 2019 11:20 AM by: JULIO MANZO [id number] LACTIC ACID [#[id number]] Priority: STAT Class: ER Collect Standing Order Information Remaining Occurrences:0/2 Interval:NOW THEN EVERY 4 HOURS Last released:12/05/2019 Released orders: SunDec 05, 2019 12:06 PM by: JULIO MANZO SunDec 05, 2019 11:20 AM by: JULIO MANZO [id number] PROTHROMBIN TIME + INR [#[id number]] Priority: STAT Class: ER Collect Standing Order Information Remain ing Occurrences:0/1 Interval:ONE TIME Last released:12/05/2019 Released orders : SunDec 05, 2019 11:20 AM by: JULIO MANZO [id number] URINALYSIS W/ RFLX MICROSCOPIC [# [id number]] Priority: STAT Class: ER Collect Standing Order Information Remaining Occurrences:0 /1 Interval:ONE TIME Last released:12/05/2019 Released orders: SunDec 05, 2019 11:20 AM by: JULIO MANZO [id number] METABOLIC PANEL, COMPREHENSIVE [#[id number]] Priority: STAT Cl ass: ER Collect Specimen Source: Plasma Specimen Collected: 12/05/2019 12:38 PM Resulting Agency: [facility] Test ID: MPL Released on: 12/05/2019 11:20 AM [id number] CBC WITH A UTOMATED DIFF [#[id number]] Priority: STAT Class: ER Collect Specimen Source: Whole Blood S pecimen Collected: 12/05/2019 12:38 PM Resulting Agency: [facility] Test ID: CBCXA Released on: 12/05/2019 11:20 AM [id number] TROPONIN I [#[id number]] Prior ity: STAT Class: ER Collect Specimen Source: Plasma Specimen Collected: 12/05/2019 12:38 PM Resultin g Agency: [facility] Test ID: TROIP Released on: 12/05/2019 11:20 AM [id number] 2 MAGNESIUM [#[id number]] Priority: STAT Class: ER Collect Specimen Source : Plasma Specimen Collected: 12/05/2019 12:38 PM Resulting Agency: [facility] Test ID: MGPL Released on: 12/05/2019 11:20 AM [id number] LACTIC ACID [#[id number]] P riority: STAT Class: ER Collect Specimen Source: Plasma Specimen Collected: 12/05/2019 12:40 PM Resultin g Agency: [facility] Test ID: LAC Released on: 12/05/2019 11:20 AM [id number] PROTHR OMBIN TIME + INR [#[id number]] Priority: STAT Class: ER Collect Specimen Source: Plasma Spe cimen Collected: 12/05/2019 12:38 PM Resulting Agency: [facility] Test ID: APTHR R eleased on: 12/05/2019 11:20 AM [id number] URINALYSIS W/ RFLX MICROSCOPIC [#[id number]] Prior ity: STAT Class: ER Collect Specimen Source: Urine Specimen Collected: 12/05/2019 2:45 PM Resultin g Agency: [facility] Test ID: UA Released on: 12/05/2019 11:20 AM [id number] LITHIU M [#[id number]] Priority: STAT Class: ER Collect Standing Order Information Remaining Occurrences:0/1 Interval:ONE TIME Last released:12/05/2019 Released orders : SunDec 05, 2019 11:40 AM by: MECHELLE GAMBLE [id number] LITHIUM [# [id number]] Priority: STAT Class: ER Collect Specimen Source: Serum Specimen Collected: 12/05/2019 12 :38 PM Resulting Agency: [facility] Test ID: LI Released on: 12/05/2019 11:40 AM [id number] LITHIUM [#[id number]] Canceled Priority: STAT Class: ER Collect Canceled by TENA, LAB IN [facility] on SunDec 05, 2019 11:42 AM Reason: Other Comment: Duplicate Standing Order Information Remaining Occurrences:0/1 Interval:ONE TIME Last released:0 12/05/2019 Released orders: SunDec 05, 2019 11:41 AM by: JULIO MANZO [id number] LITHIUM [#[id number]] Canceled Priority: STAT Class: ER Collect Specimen Collected: 12/05/2019 11:45 AM Resulting Agency: [facility] Test ID: LI Canceled by TENA, [facility] on SunDec 05, 2019 11:42 AM Reason: Other Comment: Duplicate Rele ased on: 12/05/2019 11:41 AM [id number] LACTIC ACID [#[id number]] Priority: STAT Cl ass: ER Collect Resulting Agency: [facility] Test ID: LAC Released on: 12/05/2019 12:06 PM [id number] AMMONIA [#[id number]] Priority: Routine Class: ER Collect Specimen Source: Blood Standing Order Information Remaining Occurrences:0/1 Interval:ONE TI ME Last released:12/05/2019 Released orders: SunDec 05, 2019 3:19 PM by: Javier KHAN [id number] AMMONIA [#[id number]] Priority: STAT Class: ER Collect Spe cimen Source: Blood Resulting Agency: [facility] Test ID: NH3 Released on: 12/05/2019 3:19 PM [id number] BILIRUBIN, CONFIRM [#[id number]] Priority: Routine Class : ER Collect Resulting Agency: [facility] Test ID: ICTO Standing Order Informat ion Remaining Occurrences:0/1 Released orders: SunDec 05, 2019 2:45 PM by: Automatic B atch Process [id number] BILIRUBIN, CONFIRM [#[id number]] Priority: Routine Class : ER Collect Specimen Source: Miscellaneous sample Specimen Collected: 12/05/2019 2:45 PM Resultin g Agency: [facility] Test ID: ICTO Released on: 12/05/2019 2:45 PM [id number] 6 EKG, 12 LEAD, INITIAL [#[id number]] Priority: STAT Class: Hospital Performed Stand ing Order Information Remaining Occurrences:0/1 Interval:ONE TIME Last released:0 12/05/2019 Released orders: SunDec 05, 2019 11:20 AM by: JULIO MANZO Reason for Exam: -> Chest Pain [id number] EKG, 12 LEAD, INITIAL [#[id number]] Priority: STAT Class: H ospital Performed Resulting Agency: [facility] Test ID: [id number] Reason for Exam: -> Chest Pain Releas ed on: 12/05/2019 11:20 AM [id number] XR CHEST PORT [#[id number]] Priority: STAT Clas s: Hospital Performed Standing Order Information Remaining Occurrences:0/1 Interval:ONE TI ME Last released:12/05/2019 Released orders: SunDec 05, 2019 11:20 AM by: JULIO MANZO Reason for Exam -> Chest Pain [id number] CT HEAD WO CONT [#[id number]] Priority: S TAT Class: Hospital Performed Standing Order Information Remaining Occurrences:0/1 Inter haile:ONE TIME Last released:12/05/2019 Released orders: SunDec 05, 2019 11:20 AM by: JULIO MANZO Reason for Exam -> ams [id number] XR PELV AP ONLY [#[id number]] Priority: S TAT Class: Hospital Performed Standing Order Information Remaining Occurrences:0/1 Inter haile:ONE TIME Last released:12/05/2019 Released orders: SunDec 05, 2019 11:20 AM by: JULIO MANZO Reason for Exam -> fall [id number] XR CHEST PORT [#[id number]] Priority: STAT Class: Hospital Performed Specimen Collected: 12/05/2019 12:21 PM Resulting Agency: [facility] Test ID: [id number] Reason for Exam -> Chest Pain Released on: 12/05/2019 11:[id number] HEAD WO CONT [#[id number]] Priority: STAT Class: Hospital Performed Specimen Collected : 12/05/2019 12:43 PM Resulting Agency: [facility] Test ID: [id number] Reason for Exam -> ams R eleased on: 12/05/2019 11:20 AM [id number] XR PELV AP ONLY [#[id number]] Priority: STAT Class: Hospital Performed Specimen Collected: 12/05/2019 12:23 PM Resulting Agency: [facility] Test ID : [id number] Reason for Exam -> fall Released on: 12/05/2019 11:20 AM [id number] MRI BRAIN WO CONT [#[id number]] Priority: STAT Class: Hospital Performed Standing Order Information Remaining Occurrences:0/1 Interval:ONE TIME Last released:12/05/2019 Released orders : SunDec 05, 2019 3:19 PM by: JOSE KHAN Reason for Exam -> ams [id number] MRI BRA IN WO CONT [#[id number]] Priority: STAT Class: Hospital Performed Specimen Collected : 12/05/2019 5:03 PM Resulting Agency: [facility] Test ID: [id number] Reason for Exam -> ams R eleased on: 12/05/2019 3:19 PM [id number] CULTURE, BLOOD [#[id number]] Priority: Routi ne Class: ER Collect Specimen Source: Blood Standing Order Information Remaining Occurrences:0 /1 Interval:ONE TIME Last released:12/05/2019 Released orders: SunDec 05, 2019 11:20 AM by: JULIO MANZO [id number] CULTURE, BLOOD [#[id number]] Priority: STAT Cl ass: ER Collect Specimen Source: Blood Standing Order Information Remaining Occurrences:0/1 I nterval:ONE TIME Last released:12/05/2019 Released orders: SunDec 05, 2019 11:20 AM by: JULIO MANZO [id number] CULTURE, BLOOD [#[id number]] Priority: STAT Class: E R Collect Specimen Source: Blood Specimen Collected: 12/05/2019 12:38 PM Resulting Agency: [facility] Test ID: HBCS Released on: 12/05/2019 11:20 AM [id number] CULTURE, BLOOD [#[id number]] Priority: STAT Class: ER Collect Specimen Source: Blood Specimen Collected: 12/04 12:30 PM Resulting Agency: [facility] Test ID: HBCS Released on: 12/05/2019 11:20 AM CEFTRIAXONE 1 GRAM IVPB MBP [#[id number]] Priority: STAT Class: Normal An tibiotic Indications -> Sepsis of Unknown Etiology SODIUM CHLORIDE 0.9 % IV [#[id number]] Priority: STAT Class: Normal SODIUM CHLORIDE 0.9 % IV [#[id number]] Priority : STAT Class: Normal ENOXAPARIN 40 MG/0.4 ML SUB-Q SYRINGE [#[id number]] Priority: STAT Class: N ormal ENOXAPARIN 40 MG/0.4 ML SUB-Q SYRINGE [#[id number]] Priority: STAT Class: Normal FUROSEMIDE 10 MG/ML IJ SOLN [#[id number]] Priority: STAT Class: Normal CON53 IP CONSULT TO PS YCHIATRY [#[id number]] Priority: STAT Class: Hospital Performed Standing Order Information Remaining Occurrences:0/1 Interval:ONE TIME Last released:12/05/2019 Released orders : SunDec 05, 2019 11:42 AM by: JULIO MANZO Reason for Consult: -> si Did you call or spea k to the consulting provider? -> No Consult To -> si CON53 IP CONSULT TO PSYCHIATRY [#[id number]] Priority: STAT Class: Hospital Performed Reason for Consult: -> si Did you call or spea k to the consulting provider? -> No Consult To -> si Released on: 12/05/2019 11:42 AM CON62 IP CON SULT TO INTERNAL MEDICINE [#[id number]] Priority: STAT Class: Hospital Performed Standing Order Inf ormation Remaining Occurrences:0/1 Interval:ONE TIME Last released:12/05/2019 Release d orders: SunDec 05, 2019 2:16 PM by: CARLA OTERO Reason for Consult: -> Altered mental st atus, Dr. Canas to admit Did you call or speak to the consulting provider? -> Yes CON62 IP CONSULT TO INTERNAL MEDICINE [#[id number]] Priority: STAT Class: Hospital Performed Reason for Consu lt: -> Altered mental status, Dr. Canas to admit Did you call or speak to the consulting provider? -> Yes Released on: 12/05/2019 2:16 PM CON53 IP CONSULT TO PSYCHIATRY [#[id number]] Priority: STAT Class: Hospital Performed Standing Order Information Remaining Occurrences:0 /1 Interval:ONE TIME Last released:12/05/2019 Released orders: SunDec 05, 2019 2:41 PM by: RITIKA CANAS Reason for Consult: -> adverse med reaction Did you call or speak to t he consulting provider? -> No Consult To -> Dr Aguirre Schedule When? -> TODAY CON9 IP CONSULT TO N EUROLOGY [#[id number]] Priority: STAT Class: Hospital Performed Standing Order Information Remaining Occurrences:0/1 Interval:ONE TIME Last released:12/05/2019 Released orders : SunDec 05, 2019 2:41 PM by: RITIKA CANAS Reason for Consult: -> encephalopathy adverse drug reaction Did you call or speak to the consulting provider? -> No Consult To -> Dr Jacob Schedule When? -> TODAY CON53 IP CONSULT TO PSYCHIATRY [#[id number]] Priority: STAT Class: H ospital Performed Reason for Consult: -> adverse med reaction Did you call or speak to the consulting provider? -> No Consult To -> Dr Aguirre Schedule When? -> TODAY Released on: 12/05/2019 2:41 P M CON9 IP CONSULT TO NEUROLOGY [#[id number]] Priority: STAT Class: Hospital Performe d Reason for Consult: -> encephalopathy adverse drug reaction Did you call or speak to the consulting provider? -> No Consult To -> Dr Jacob Schedule When? -> TODAY Released on: 12/05/2019 2:41 P M [id number] INITIAL PHYSICIAN ORDER: OBSERVATION* [#[id number]] Priority: Routine Class: ADT Pend Trans milvia Standing Order Information Remaining Occurrences:0/1 Interval:ONE TIME Last release d:12/05/2019 Released orders: SunDec 05, 2019 2:00 PM by: LUZ ELENA GATES Patient Class: -> OBS ERVATION Admitting Diagnosis -> Encephalopathy acute Admitting Physician -> CARLA OTERO Attending Physician -> CARLA OTERO [id number] INITIAL PHYSICIAN ORDER: OBSERVATION* [#[id number]] Priority: Routine Class: ADT Pend Transfer Patient Class: -> OBSERVATION Admitting Diagnosis -> Encephalopathy acute Admitting Physician -> CARLA OTERO Attending Physician -> CARLA OTERO Released on: 12/05/2019 2:00 PM [id number] INITIAL PHYSICIAN ORDER: INPATIENT [#[id number]] Joan renner: Routine Class: ADT Pend Transfer [...] o- n- ) Admitting Diagnosis - > Lxw-udye-cjixtbo adverse reaction to medication Admitting Physician -> RITIKA CANAS Physician -> RITIKA CANAS Estimated Length of Stay -> 5-7 Midnights Discharge Plan: -> Other (Specify) [id number] INITIAL PHYSICIAN ORDER: INPATIENT [#[id number]] Priority: Routine Class: ADT Pend Tr ansfer [...] i- o- n- ) Admitting Diagnosis -> Sbs-gkxv-rhrinkx adverse reaction to medication Admitting Physician -> RITIKA CANAS Attending Physician -> MARY CANAS Estimated Length of Stay -> 5-7 Midnights Discharge Plan: -> Other (Specify) [id number] [facility] PHYSICIAN ORDER: INPATIENT [#[id number]] Priority: Routine Class: ADT Pend Transfer Status: [...] i- o- n- ) Admitting Diagnosis -> Fov-bgzj-tfdzkzj adverse reaction to medication Admitting Physician -> RITIKA CANAS Attending Physician -> MARY CANAS Estimated Length of Stay -> 5-7 Midnights Discharge Plan: -> Other (Specify) Released on: 12/05/2019 2:41 PM [id number] INITIAL PHYSICIAN ORDER: INPATIENT [#[id number]] Priority: Routine Class : ADT Pend Transfer [...] o- n- ) Adm itting Diagnosis -> Zio-zyhd-nnzpbaf adverse reaction to medication Admitting Physician -> RITIKA CANAS Attending Physician -> RITIKA CANAS Estimated Length of Stay -> 5-7 Midnights Discharge Plan: -> Other (Specify) Released on: 12/05/2019 2:41 PM COD2 FULL CODE [#[id number]] Priority: STAT Class: Hospital Performed Standing Order Information Remaining Occurrences:0 /1 Interval:CONTINUOUS Last released:12/05/2019 Released orders: SunDec 05, 2019 2:41 PM by: RITIKA CANAS FULL CODE [#[id number]] Priority: STAT Cl ass: Hospital Performed Released on: 12/05/2019 2:41 PM [id number] EEG 12-26 HR W/VIDEO [# [id number]] Priority: Routine Class: Hospital Performed Standing Order Information Remaining Occurre nces:0/1 Interval:ONE TIME Last released:12/05/2019 Released orders: SunDec 04 3:19 PM by: JOSE KHAN Reason for Exam: -> ams [id number] EEG 12-26 HR W/VIDEO [#[id number]] Priority: STAT Class: Hospital Performed Resulting Agency: [facility] Test ID: [id number] Reason for Exam: -> ams Released on: 12/05/2019 3:19 Maxwell Corona MR#: [id number] * Rm: 441- 01Ht: 5' 5.75" Wt: 300 lb Code: Full Code Iso:Diagnosis:Encep halopathy acute [G93.40]Allergies: No Known Allergies -------- Current as of: 12/05/191806 NB=New Bag --aspirin (ASPIRIN) tablet 325 mg #[id number] Admin Amount: 1 Tab (1 x 325 mg Tab) Ordered Dose: 325 mg Route: Oral Freq: ONCE Start Date: 12/24/13 No administration times (back 96 hours, ahead 96 hours). ------diphenhydrAMINE (BENADRYL) capsule 50 mg #[id number] Admin Amount: 1 Cap (1 x 50 mg Cap) Ordered Dose: 50 mg Route: Ora l Freq: NOW Start Date: 12/24/13 No administration times (back 96 hours, ahe ad 96 hours). ------diazepam (VALIUM) tablet 5 mg #[id number] Admin Amount: 1 Tab (1 x 5 mg Tab) Ordered Dose: 5 mg Route: Oral Freq: ON CE Start Date: 12/24/13 No administration times (back 96 hours, ahead 96 hours). ------lidocaine (XYLOCAINE) 10 mg/mL (1 %) injection 1-30 mL #[id number] Admin Amount: 1-30 mL Ordered Dose: 1-30 mL Route: IntraDERMal Freq: ONCE Start Date: 12/24/13 No administration times (back 96 hours, ahead 96 hours). ------heparin (PF) 2 units/ml in NS infusion 2,000 Units #[id number] Admin Amount: 1,000 mL = 2,000 Units of 2 Units/mL Ordered Dose: 1,000 mL [place]: Irrigation Freq: ONCE Start Date: 12/24/13 No administration times (back 96 hours, ahead 96 hours). ------heparinized saline 2 units/mL infusion 1,000 Units #[id number] Admin Amount: 500 mL = 1,000 Units of 2 Units/mL Ordered Dose: 500 mL [place]: IntraarTERial Freq: ONCE Start Date: 12/24/13 No administration times (back 96 hours, ahead 96 hours). ------0.9% sodium chloride infusion #[id number] Ordered Dose: 75 mL/hr Route: IntraVENous Freq: CONTINUOUS Start Date: 12/24/13 Rate: 75 mL/hr Duration: No administration times (back 96 hours, ahead 96 hours). ------ioversol (OPTIRAY) 320 mg iodine/mL contrast injection 1-100 mL #[id number] Admin Amount: 1-100 mL Ordered Dose: 1-100 mL Route: IntraVENous Freq: RAD O NCE Start Date: 12/24/13 No administration times (back 96 hours, ahead 96 hours).Maxwell Bray MR#: [id number] * Rm: 441-01Ht: 5' 5.75" Wt: 300 lb Cod e: Full Code Iso:Diagnosis:Encephalopathy acute [G93.40]Allergies: No Known Allergies -------- Current as of: 12/05/191806 NB=New Bag --gadobutrol (GADAVIST) contrast solution 1-10 mL #[id number] Admin Amount: 1-10 mL Ordered Dose: 1-10 mL Route: IntraVENous Freq: RAD O NCE Start Date: 01/13/14 No administration times (back 96 hours, ahead 96 hours). ------sodium chloride (NS) flush 5-10 mL #[id number] Admin Amount: 5-10 mL Ordered Dose: 5-10 mL Route: IntraVENous Freq: RAD ONCE Start Date: 01/13/14 No administration times (back 96 hours, ahead 96 hours). ------sodium chloride (NS) 0.9 % flush #[id number] Ordered Dose: Route: Freq: Start Date: 01/13 No administration times (back 96 hours, ahead 96 hours). ------morphine injection 2 mg #[id number] Admin Amount: 1 mL = 2 mg of 2 mg/mL Ordered Dose: 2 mg Route: IntraVENous Freq: NOW Start Date: 03/13/15 No administration times (back 96 hours, ahe ad 96 hours). ------influenza vaccine (4 yr+)(PF) (FLUCELVAX QUAD) inj ection 0.5*#[id number] Admin Amount: 0.5 mL Ordered Dose: 0.5 mL Route: IntraMUSCular Freq: PRIOR TO DISCHARGE Start Date: 03/30/16 No administration times (back 96 hours, ahead 96 hours). ------oxyCODONE-acetaminophen (PERCOCET) 5-325 mg per tablet 1 Tab #[id number] Admin Amount: 1 Tab Ordered Dose: 1 Tab Route: Oral Freq: NOW Start Date: 09/07/17 No administration times (back 96 hours, ahead 96 hours). ------barium sulfate (READICAT) 2.1 % (w/v), 2.0 % (w /w) oral suspension 9*#[id number] Admin Amount: 900 mL Ordered Dose: 900 mL Route: Oral [place]gado q: RAD ONCE Start Date: 10/15/17 No administration times (back 96 hours, ahead 96 hours). ------iopamidol (ISOVUE 300) 61 % contrast injection 100 mL #[id number] Admin Amount: 100 mL Ordered Dose: 100 mL Route: IntraVENous Freq: RAD ONC E Start Date: 10/15/17 No administration times (back 96 hours, ahead 96 hours).Maxwell Bray MR#: [id number] * Rm: 441-01Ht: 5' 5.75" Wt: 300 lb Code: Full Code Iso:Diagnosis:Encephalopathy acute [G93.40]Allergies: No Known Allergies -------- Current as of: 12/05/19 180 NB=New Bag --risperiDONE (RisperDAL m-tabs) disintegrating tablet 1 mg #[id number] Admin Amount: 1 Tab (1 x 1 mg Tab) Ordered Dose: 1 mg Route: Oral Freq: ONCE Start Date: 12/24/17 No administration times (back 96 hours, ahead 96 hours). ------ALPRAZolam (XANAX) tablet 2 mg #[id number] Admin Amount: 4 Tab (4 x 0.5 mg Tab) Ordered Dose: 2 mg Route: Ora l Freq: NOW Start Date: 12/24/17 No administration times (back 96 hours, ahe ad 96 hours). ------lamoTRIgine (LaMICtal) tablet 100 mg #[id number] Admin Amount: 1 Tab (1 x 100 mg Tab) Ordered Dose: 100 mg Route: Oral [place]gado q: ONCE Start Date: 12/24/17 No administration times (back 96 hours, ahead 96 hours). ------OLANZapine (ZyPREXA zydis) disintegrating tablet 5 mg #[id number] Admin Amount: 1 Tab (1 x 5 mg Tab) Ordered Dose: 5 mg Route: Oral [place] q: ONCE Start Date: 12/25/17 No administration times (back 96 hours, ahead 96 hours). ------LORazepam (ATIVAN) tablet 2 mg #[id number] Admin Amount: 4 Tab (4 x 0.5 mg Tab) Ordered Dose: 2 mg Route: Ora l Freq: NOW Start Date: 12/25/17 No administration times (back 96 hours, ahe ad 96 hours). ------LORazepam (ATIVAN) injection 1 mg #[id number] Admin Amount: 0.5 mL = 1 mg of 2 mg/mL Ordered Dose: 1 mg Route: Int raVENous Freq: NOW Start Date: 12/25/17 No administration times (back 96 hours, ahe ad 96 hours). ------barium sulfate (EZ PAQUE) 96 % (w/w) contrast suspension 17 6 g #[id number] Admin Amount: 176 g Ordered Dose: 176 g Route: Oral Freq: RAD ONCE Start Date: 08/02/18 No administration times (back 96 hours, ahead 96 hours). ------barium sulfate (EZ PAQUE) 96 % (w/w) contrast s uspension 176 g #[id number] Admin Amount: 176 g Ordered Dose: 176 g Route: Oral Delgado q: RAD ONCE Start Date: 08/02/18 No administration times (back 96 hours, ahead 96 hours).Maxwell Ritter MR#: [id number] * Rm: 441-01Ht: 5' 5.75" Wt: 300 lb Cod e: Full Code Iso:Diagnosis:Encephalopathy acute [G93.40]Allergies: No Known Allergies -------- Current as of: 12/05/191806 NB=New Bag --aspirin chewable tablet 162 mg #[id number] Admin Amount: 2 Tab (2 x 81 mg Tab) Ordered Dose: 162 mg Route: Oral Freq: NOW Start Date: 08/10/19 No administration times (back 96 hours, ahead 96 hours). ------0.9% sodium chloride infusion 1,000 mL #[id number] Admin Amount: 1,000 mL Ordered Dose: 1,000 mL Route: IntraVENous Freq: ONC E Start Date: 08/16/19 Rate: 1,000 mL/hr Duration: No administration ti mes (back 96 hours, ahead 96 hours). ------methylPREDNISolone (PF) (Solu-MEDROL) injection 125 mg #[id number] Admin Amount: 2 mL = 125 mg of 125 mg/2 mL Ordered Dose: 125 mg Route: Int raVENous Freq: NOW Start Date: 08/16/19 No administration times (back 96 hours, ahe ad 96 hours). ------aspirin chewable tablet 162 mg #[id number] Admin Amount: 2 Tab (2 x 81 mg Tab) Ordered Dose: 162 mg Route: Oral [place]gado q: NOW Start Date: 08/16/19 No administration times (back 96 hours, ahead 96 hours). ------haloperidoL (HALDOL) tablet 5 mg #[id number] Admin Amount: 1 Tab (1 x 5 mg Tab) Ordered Dose: 5 mg Route: Oral [place]gado q: ONCE Start Date: 10/30/19 No administration times (back 96 hours, ahead 96 hours). ------cefTRIAXone (ROCEPHIN) 1 g in 0.9% sodium chloride (MBP/ADV) 50 m L M*#[id number] Admin Amount: 1 g Ordered Dose: 1 g Route: IntraVENous Freq: NOW Start Date: 12/05/19 Rate: 100 mL/hr Duration: 30 Minutes Administration linda es (back 96 hours, ahead 96 hours): 12/05/19: 1428NB -----0.9% sodium chloride infusion #[id number] Ordered Dose: 125 mL/hr Route: IntraVENous Freq: CONTINUOUS Start Date: 12/05/19 Rate: 125 mL/hr Duration: Administration times (back 96 hours, ahead 96 hours): 12/05/19: 1408Maxwell Cain MR#: [id number] * Rm : 441-01Ht: 5' 5" Wt: 300 lb Code: Full Code Iso:Diagnosis:Encephalopathy acute [G93. 40]Allergies: No Known Allergies -------- Current as of: 12/05/19 180 NB=New Bag --enoxaparin (LOVENOX) injection 40 mg #[id number] Admin Amount: 0.4 mL = 40 mg of 40 mg/0.4 mL Ordered Dose: 40 mg [place]: SubCUTAneous Freq: EVERY 24 HOURS Start Date: 12/05/19 Administration times (back [address] [facility] 96 hours): 12/05/19: 209912/06/19: 209912/07/19: 209912/08/19: 2099 ---furosemide (LASIX) injection 20 mg #[id number] Admin Amount: 2 mL = 20 mg of 10 mg/mL Ordered Dose: 20 mg [place]: IntraVENous Freq: ONCE Start Date: 12/05/19 Administration [...] ormationFollow-up With:Ritika Canas MDDetails:Comments:Contact Info:[place] [address] Sosa [phone] Name Value Range Interpretation Code Description Data Melani rce(s) Supporting Document(s ) ID Date Data Source [id number] 12/05/2019 04:36:09 PM EDT [facility] The history is provided by the patient [...] morbidity or mortality cardiac cath at [facility] approx 6-8 months ag o Other [...] week Gets together: Once a week Attends pentecostal service: More than 4 times per year [...] QTC Calculation (Bezet) 515 ms Calculated P [place] 40 degrees Calculat ed R [place] 41 degrees Calculated T [place] 147 degrees Diagnosis Sinus tachycardiaProb able left [...] Time: 12/05/19 12:38 PMResult Value Ref Range [place] level 1.53 (HH) 0.6 - 1.2 MMOL/LLACTIC ACID Collection Time: 12/04 12:40 PMResult Value Ref Range Lactic acid 1.1 0.4 - 2.0 MMOL/LEKG:Sinus tachy cardia at 100 BPM, normal axis, nothing acute.Interpreted by Julio Manzo MD11:2 0 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 Interpretedby Jluio Rosenberg MD.Radiology:CXR Results (Last 48 hours) 12/05/19 [...] cardiac monitoring, CXR, and head CT. 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 Will consult [...] 100 mg tablet 200 mg. 11/12/19 Provider, DaniloVraylar 3 mg capsule Take 6 mg by [...] Supporting Document(s ) ID Date Data Source [id number] 12/05/2019 04:05:06 PM EDT [facility] [address] [place] [address] [email or web address] CONSULT NOTEPatient: Maxwell Bray Se x: male [...] or sensory fuentes es. Lab significant of [place] 1.53 and elevatedliver enzymes. Neurology consult ed for encephalopathy/drug adverse reaction.Past Medical History:Diagnosis Date Other unknown and unspecified cause of morbidity or mortality cardiac cath at [facility] approx 6-8 months ago Other unknown and [...] QTC Calculation (Bezet) 515 ms Calculated P [place] 40 degrees Calculated R [place] 41 degrees Calculated T [place] 147 degrees Diagnosis Sinus tachycardiaProbable left atrial [...] Time: 12/05/19 12:38 PMResult Value Ref Range [place] level 1.53 (HH) 0.6 - 1.2 MMOL/LLACTIC [...] were created on an independent workstation. Utilizing [facility] factureralgorithms the examination was performed [...] QTC Calculation (Bezet) 515 ms Calculated P [place] 40 degrees Calculat ed R [place] 41 degrees Calculated T [place] 147 degrees Diagnosis Sinus tachycardiaProb able left [...] glover M79.2 Seizure disorder (HCC) G40.909 Spells [id number] Severe obesity (HCC) E66 .01 Depression F32.9 Anxiety F41.9 Bipolar disorder (HCC) F31.9 Depressive disorde r F32.9 Status post gastric bypass for obesity Z98.84 Morbid obesity (HCC) E66 .01 Mixed anxiety and depressive disorder F41.8 Vitamin D deficiency E55.9 Bipol ar disorder with severe depression (HCC) F31.4 Encephalopathy acute G93.40 Adve rse drug reaction, initial encounter T50.905A Wap-mpqm-xgenpko adverse reaction to me dication T88.7XXA49 year old male with pmh as stated above and now with AMS and genera lizedweakness - most likely secondary to lithium toxicity - ? Seizure.Plan: Mri Brain Ammonia Monitor lithium level daily EEG - 24 hrs Seizure precautionsPaulson Gerald Flores 2019 3:19 [id number] Name Value Range Interpretation Code Description Data Melani rce(s) Supporting Document(s ) ID Date Data Source [id number] 12/05/2019 03:37:45 PM EDT [facility] sbar-q given to Ev berger to floor Name Value Range Interpretation Code Description Data Melani rce(s) Supporting Document(s ) ID Date Data Source [id number] 12/05/2019 03:29:57 PM EDT [facility] sbar-q given to Sheri UGALDE on floor Name Value Range Interpretation Code Description Data Melani rce(s) Supporting Document(s ) ID Date Data Source [id number] 12/05/2019 03:28:02 PM EDT [facility] History & PhysicalBrian Anam Bray is a [...] h igh dose amytriptylene 200 mg nightly, [place], andVraylar 6 mg. :[place] level on prior admission therapeutic. Patient's wifecontactedthis [...] morbidity or mortality cardiac cath at [facility] approx 6-8 months ag o Other [...] week Gets together: Once a week Attends pentecostal service: More than 4 times per year [...] Calculati on (Bezet) 515 ms Calculated P [place] 40 degrees Calculated R [place] 41 degrees Elena culated T [place] 147 degrees Diagnosis Sinus tachycardiaProbable left atrial [...] Time: 12/05/19 12:38 PMResult Value Ref Range [place] level 1.53 (HH) 0.6 - 1.2 MMOL/LLACTIC ACID Collection Time: 12/04 12:40 PMResult Value Ref Range Lactic acid 1.1 0.4 - 2.0 MMOL/All lab results for the last 24 hours reviewed. Serun [place] level toxicAssessment/PlanPrinci pal Problem: Adverse drug reaction, initial encounter (12/05/2019) LithiumActive Prob lems: Encephalopathy acute (12/05/2019) Hpw-ihje-wpzbyci adverse reaction to med ication (12/05/2019)Neuro, and psych evaluation, hydrationRitika Canas MD Name Value Range Interpretation Code Description Data Melani rce(s) Supporting Document(s ) ID Date Data Source [id number] 12/06/2019 12:36:10 PM EDT [facility] Name Value Range Interpretation Description Data Sup porting Code Source(s) Document(s ) Service comment [facility] Bacteria [facility] identified in [facility] Hospital specimen by Culture ID Date Data Source [id number] 12/05/2019 04:18:26 PM EDT [facility] Name Value Range Interpretation Description Data Sup porting Code Source(s) Document(s ) Color of Urine YEL Abnormal (applies [facility] - to non-numeric Good results) [facility] Appearance of CLEAR Abnormal (applies [facility] - Urine to non-numeric Good results) [facility] Specific gravity 1.033 1.003-1. Above high normal [facility] - of Urine by 030 Good Refractometry [facility] pH of Urine by 5.5 4.6-8.0 [facility] - Test strip Good [facility] Protein 30 mg/dL NEG Abnormal (applies [facility] - [Mass/volume] in to non-numeric Good Urine by Test results) [facility] Glucose NEG [facility] - [Mass/volume] in Good Urine by [facility] Automated test Hospital strip Ketones 15 mg/dL NEG Abnormal (applies [facility] - [Presence] in to non-numeric Good Urine by results) [facility] Automated test Hospital strip Bilirubin.total NEG Abnormal (applies [facility] - [Presence] in to non-numeric Good Urine results) [facility] Hemoglobin NEG [facility] - [Presence] in Good Urine by Test [facility] Urobilinogen 1.0 0.2-1.0 [facility] - [Presence] in EU/dL Good Urine by [facility] Automated test Hospital strip Nitrite NEG [facility] - [Presence] in Good Urine by [facility] Automated test Hospital strip Leukocyte NEG [facility] - esterase Good [Presence] in [facility] Urine by Hospital Automated test strip Leukocytes 0-5 [facility] - [Presence] in Good Urine sediment [facility] by Light Hospital microscopy Erythrocytes 0-2 [facility] - [#/area] in Good Urine sediment [facility] by [facility] high power field Epithelial cells 0-10 [facility] - [#/area] in Good Urine sediment [facility] by Microscopy [facility] high power field Bacteria NONE Abnormal (applies [facility] - [Presence] in to non-numeric Good Urine sediment results) [facility] by Light [facility] microscopy ID Date Data Source [id number] 12/05/2019 03:26:35 PM EDT [facility] Name Value Range Interpretation Description Data Sup porting Code Source(s) Document(s ) Bilirubin NEG [facility] - Good [Presence] in [facility] Urine by Hospital Confirmatory method ID Date Data Source [id number] 12/05/2019 02:22:27 PM EDT [facility] I spoke to Dr. Canas regarding Observation Status. Dr. Canas said patient will bemade In Patient Status today. Name Value Range Interpretation Code Description Data Melani rce(s) Supporting Document(s ) ID Date Data Source [id number] 12/05/2019 02:03:27 PM EDT [facility] SW/Psych Screener attempted to meet with Pt for MH evaluation. Pt was foundlying on stretcher with his eyes open, staring at the wall. Waterworks Chief Engineer knows this Ptfrom previous admission to the medical floor. When ask ed if Pt rememberedwriter, Pt appeared confused, but said he did. Pt stated he fell today, doesn'tremember how he was brought to the hospital. Pt appeared to be searching for hiswords and was having difficulty speaking. Pt unclear of where he is, stating[place]" when asked where he was and "[place]" when asked what month it was. Whenasked if Pt was exhibiting any feelings of S/I, H/I or A/V Hallucinatio ns, Ptresponded with, "No," and confirmed he has been compliant with his psychiatricm edications. Waterworks Chief Engineer conferred with ER Attending, Dr. Manzo, who states that Ptwi ll most likely be medically admitted at this time.Krystina Centeno, HECTOR, CASAC-2 Name Value Range Interpretation Code Description Data Melani rce(s) Supporting Document(s ) ID Date Data Source [id number] 12/05/2019 12:53:[address] [facility] [address] HEAD W/O CONTRASTPRIOR: Multiple: Mos t [...] Supporting Document(s ) ID Date Data Source [id number] 12/05/2019 01:31:37 PM EDT [facility] Name Value Range Interpretation Description Data Sup porting Code Source(s) Document(s ) Lactate 1.1 0.4-2.0 [facility] [Moles/volu MMOL/L [facility]] in Hospital Serum or Plasma ID Date Data Source [id number] 12/10/2019 05:19:22 AM EDT [facility] Name Value Range Interpretation Description Data Sup porting Code Source(s) Document(s ) Service comment [facility] Bacteria [facility] identified in [facility] specimen by Culture ID Date Data Source [id number] 12/05/2019 02:14:34 PM EDT [facility] Name Value Range Interpretation Description Data Sup porting Code Source(s) Document(s ) [place] 1.53 0.6-1.2 Above upper panic [facility] - [facility] [Moles/volu MMOL/L limits [facility]] in Hospital Serum or Plasma CALLED TO AND READ BACK BYTRAM GAMBLE 1414 12/05/19 [facility] ID Date Data Source [id number] 12/05/2019 01:31:37 PM EDT [facility] Name Value Range Interpretation Description Data Sup porting Code Source(s) Document(s ) Troponin 0.00-0.05 [facility] - [facility] I.cardiac [facility] [Mass/volume Hospital ] in Serum or Plasma [...] to 1.50 ng/mL ID Date Data Source [id number] 12/05/2019 01:31:37 PM EDT [facility] Value Range Interpretation Description Data Sup porting Code Source(s) Document(s ) Sodium 134 136-145 Below low normal [facility] - Good [Moles/volume] mmol/L [facility] in Serum or Hospital Plasma Potassium 3.5 3.5-5.1 [facility] - Good [Moles/volume] mmol/L [facility] in Serum or Hospital Plasma Chloride 104 98-107 [facility] - [facility] [Moles/volume] mmol/L [facility] in Serum or Hospital Plasma Carbon 26 21-32 [facility] - Good dioxide, total mmol/L [facility] [Moles/volume] Hospital in Serum or Plasma Anion gap in 7 mmol/L 10-20 Below low normal [facility] - Go od Serum or [facility] Plasma Hospital Glucose 127 74-106 Above high normal [facility] - Good [Mass/volume] mg/dL [facility] in Serum or Hospital Plasma Urea nitrogen 21 mg/dL 7-18 Above high normal [facility] - Good [Mass/volume] [facility] in Serum or Hospital Plasma Creatinine 0.94 0.70-1.3 [facility] - Good [Mass/volume] mg/dL 0 [facility] in Serum or Hospital Plasma Glomerular >60 [facility] - Good filtration [facility] rate/1.73 sq M Hospital predicted among blacks [Volume Rate/Area] in Serum or Plasma by Creatinine-bas ed formula (MDRD) Glomerular >60 [facility] - Good filtration [facility] rate/1.73 sq M Hospital predicted among non-blacks [Volume Rate/Area] in Serum or Plasma by Creatinine-bas ed formula (MDRD) (NOTE)Estimated GFR is calculated using the Modification of Diet in RenalDisease (MDRD) Study equation, reported for both Americans(GFRAA) and non- Americans (GFRNA), and normalized to 1.7 0x0etcr surface area. The physician must decide which [...] normal [facility] - Good Serum or Plasma [facility] ital Bilirubin.total 0.9 mg/dL 0.2-1.0 [facility] - Good [Mass/volume] in Serum or [facility] Plasma Alanine aminotransferase 34 U/L 13-61 [facility] - Good [Enzymatic activity/volume] [facility] in Serum or Plasma Aspartate aminotransferase 47 U/L 15-37 Above high [facility] - Good [Enzymatic activity/volume] normal [facility] in Serum or Plasma by With P-5'-P Alkaline phosphatase 171 U/L 45-117 Above high [facility] - Good [Enzymatic activity/volume] normal [facility] in Serum or Plasma Protein [Mass/volume] in 7.5 g/dL 6.4-8.2 [facility] - Good Serum or Plasma [facility] ital Albumin [Mass/volume] in 3.8 g/dL 3.5-4.7 [facility] - Good Serum or Plasma by [facility] ospital Bromocresol purple (BCP) dye binding method Globulin [Mass/volume] in 3.7 g/dL 1.7-4.7 [facility] - Good Serum by [facility] Albumin/Globulin [Mass 1.0 0.7-2.8 [facility] - Good Ratio] in Serum or Plasma [facility] ID Date Data Source [id number] 12/05/2019 01:31:37 PM [facility]T [facility] Name Value Range Interpretation Description Data Sup porting Code Source(s) Document(s ) Magnesium 2.9 mg/dL 1.6-2.6 Above high normal [facility] - Good [Mass/volume] [facility] in Serum or Hospital Plasma ID Date Data Source [id number] 12/05/2019 01:20:04 PM EDT [facility] Name Value Range Interpretation Description Data Sup porting Code Source(s) Document(s ) Prothrombin 10.6 sec 9.4-11.1 [facility] time (PT) [facility] INR in 1.0 0.8-1.2 [facility] - Good Platelet poor [facility] plasma by [facility] Coagulation assay ID Date Data Source [id number] 12/05/2019 01:07:21 PM EDT [facility] Name Value Range Interpretation Description Data Sup porting Code Source(s) Document(s ) Leukocytes 12.4 4.8-10.6 Above high normal [facility] - [#/volume] in K/uL Good Blood by [facility] count [facility] Erythrocytes 5.03 4.70-6.0 [facility] - [#/volume] in M/uL 0 Good Blood by [facility] count [facility] Hemoglobin 15.4 14.0-18. [facility] - [Mass/volume] in g/dL 0 Good Blood [facility] Hematocrit 45.8 % 42.0-52. [facility] - [Volume 0 Good Fraction] of [facility] Blood by Hospital Automated count Erythrocyte mean 91.1 FL 81.0-94. [facility] - corpuscular 0 Good volume [Entitic [facility] volume] by Hospital Automated count Erythrocyte mean 30.6 PG 27.0-35. [facility] - corpuscular 0 Good hemoglobin [facility] [Entitic mass] Hospital by Automated count Erythrocyte mean 33.6 30.7-37. [facility] - corpuscular g/dL 3 Good hemoglobin [facility] concentration Hospital [Mass/volume] by Automated count Erythrocyte 12.9 % 11.5-14. [facility] - distribution 0 Good width [Ratio] by [facility] Automated count Hospital Platelets 164 K/uL 130-400 [facility] - [#/volume] in [facility] Blood by [facility] Automated count Hospital Platelet mean 9.5 FL 9.2-11.8 [facility] - volume [Entitic Good volume] in Blood [facility] by Automated Hospital count Nucleated 0.0 PER 0 [facility] - erythrocytes/100 100 WBC Good leukocytes [facility] [Ratio] in Blood [facility] Nucleated 0.00 0.0-0.01 [facility] - erythrocytes K/uL Good [#/volume] in [facility] Segmented 80 % 48.0-72. Above high normal [facility] - neutrophils/100 0 Good leukocytes in [facility] Lymphocytes/100 8 % 18.0-40. Below low normal [facility] - leukocytes in 0 [facility] Blood [facility] Monocytes/100 10 % 2.0-12.0 [facility] - leukocytes in [facility] Blood [facility] Eosinophils/100 1 % 0.0-7.0 [facility] - leukocytes in [facility] Blood [facility] Basophils/100 0 % 0.0-3.0 [facility] - leukocytes in [facility] Immature 0 % 0-0.5 [facility] - granulocytes/100 Good leukocytes in [facility] Blood by Hospital Automated count Segmented 10.0 2.3-7.6 Above high normal [facility] - neutrophils K/UL Good [#/volume] in [facility] Lymphocytes 1.0 K/UL 0.9-4.2 [facility] - [#/volume] in [facility] Blood [facility] Monocytes 1.2 K/UL 0.1-1.7 [facility] - [#/volume] in [facility] Eosinophils 0.1 K/UL 0.0-1.0 [facility] - [#/volume] in [facility] Basophils 0.0 K/UL 0.0-0.4 [facility] - [#/volume] in [facility] Immature 0.1 K/UL 0.0-0.17 [facility] - granulocytes Good [#/volume] in [facility] Blood by Hospital Automated count Differential [facility] - cell count Good method [facility] ID Date Data Source [id number] 12/10/2019 05:19:23 AM EDT [facility] Name Value Range Interpretation Description Data Sup porting Code Source(s) Document(s ) Service comment [facility] Bacteria [facility] identified in [facility] specimen by Culture ID Date Data Source [id number] 12/05/2019 12:24:35 PM EDT [facility] PELVIS one view.History: TraumaThe study is suboptimal due to the patient's body habitus.There is no evidence of fracture , dislocation, subluxation, bone erosion orarthritis.IMPRESSION: Grossly normal s tudy. Signing date/time: 12/05/2019 12:24 PMSigned by: CURTIS VARMA Name Value Range Interpretation Code Description Data Melani rce(s) Supporting Document(s ) ID Date Data Source [id number] 12/05/2019 12:23:11 PM EDT [facility] CHEST 1 view (s)HISTORY: Chest pain.COMP ARISON: [...] Supporting Document(s ) ID Date Data Source [id number] 12/05/2019 11:34:39 AM EDT [facility] BIBA for fall in the middle of the night while going to bathroomC/p left hip pain Name Value Range Interpretation Code Description Data Melani rce(s) Supporting Document(s ) ID Date Data Source [id number] 12/05/2019 11:21:27 AM EDT [facility] Please enter the current weight for this patient in [facility]. Thank you. Name Value Range Interpretation Code Description Data Melani rce(s) Supporting Document(s ) ID Date Data Source [id number] 11/23/2019 02:02:47 PM EDT [facility] Discharge SummaryPatient: Maxwell mackey Sex: male DOA: [...] E66.01ICD-9-CM: 278.01 07/19/2018 - Present Spells ICD-10-CM: [id number]: IMO00 01 04/08/2016 - Present Seizure disorder [...] tr eated with parenteral hydration with benefit c2owlxhzqwdbgjrbjlz responses. Of note i s fact that [...] Supporting Document(s ) ID Date Data Source [id number] 11/03/2019 09:41:35 PM EDT [facility] Verbal shift change report given to , RN (oncoming nurse) by Scott Beverly RN (offgoing nurse). Report included the fo llowing information SBAR, Kardex,Intake/Output, MAR and Recent Res ults. Name Value Range Interpretation Code Description Data [facility] rce(s) Supporting Document(s ) ID Date Data Source [id number] 11/03/2019 03:34:07 PM EDT [facility] Per psych note, CM to confirm patient ap pt with psychiatristCall to Dr Mateo Méndez office # [phone], office [facility] ent aware of # to call to make his own appt, [facility] states his will be coming this evening to drive him homeCare Management InterventionsPCP Verified by CM: YesPalliative Care Criteria Met (RRAT>21 & CHF Dx)?: NoMode of Transport at Discharge: Other (see comment)( yanni maciel between approx5-6)Transition of Care Consult (CM Consult): Discharge Planning Physical Therapy Consult: NoOccupational Therapy Consult: NoSpeech Therapy Consul t: NoCurrent Support Network: Lives with Spouse, Own Home( [place]anca ,[phone])Confirm Follow Up Transport: FamilyThe Patient and/or Patient [...] Supporting Document(s ) ID Date Data Source [id number] 11/03/2019 02:45:48 PM EDT [facility] PHYSICAL THERAPY TREATMENTPatient: Maxwell Bray (49 y.o. [...] Supporting Document(s ) ID Date Data Source [id number] 11/03/2019 01:09:08 PM EDT [facility] General Daily Progress NoteAdmit Date: Hospital day: [...] past 8 hrs: BP Temp Pulse Resp QyQ97711/03/19 0752 115 /76 97.6 F (36.4 C) [...] Name Value Range Interpretation Code Description Data [facility] rce(s) Supporting Document(s ) ID Date Data Source [id number] 11/03/2019 10:52:30 AM EDT [facility] S/O patient has seen for follow up via V ideo . He is doing much better. Hedenies any auditory or visual hallucination any mor eHe has no suicidal or homicidal thoughtsHe reports that he sees Dr. marie every ot her weeksPt wants to follow up with Dr. Marie after dischargePlan continue on a ll current psychotropic medications Requesting patient case coordinator to confirm his a ppointment with Dr. mariebefore he discharged Please re consult if n eeded Name Value Range Interpretation Code Description Data [facility]s ) ID Date Data Source [id number] 11/03/2019 07:12:34 AM EDT [facility] Bedside and Verbal shift change report g iven to Meño Rose, RN (oncomingnurse) by June Ochoa, TRAM (offgoing nurse). Repor t included the followinginformation SBAR, Kardex, Intake/Output, MAR, Recent Resul ts and Med Rec Status. Name Value Range Interpretation Code Description Data [facility](s) Supporting Document(s ) ID Date Data Source [id number] 11/02/2019 11:18:25 PM EDT [facility] Problem: Falls - Risk ofGoal: *Absence o [...] Harsh Scale and appropriate interventio ns in thegrant hospitalsheet.Outcome: Progressing Towards GoalNote: Pressure Injury Interv [...] Name Value Range Interpretation Code Description Data [facility] Supporting Document(s ) ID Date Data Source [id number] 11/02/2019 07:34:02 PM EDT [facility] Bedside shift change report given to GILLIAN KEATING (oncoming nurse) by Meño Rose(offgoing nurse). Report included the following information SBAR, Kardex andIntake/Output. Name Value Range Interpretation Code Description Data [facility] rce(s) Supporting Document(s ) ID Date Data Source [id number] 11/02/2019 05:14:50 PM EDT [facility] Telehealth Progress NotePursuant to the emergency [...] [] Telephone [x] VideoconferenceDate: 11/02/2019Accodarian Blanton mber: [id number]: Maxwell Robin [employer] Joe PROGRESS NOTE:Coordinated treatment team rounds conducted with psychiatrist, patient, nursesand/or social media campaign manager present ; dis cussions held with patient case coordinator and/or familymembers; Chart reviewed in full in cluding business process consultant notes, ancillary staffnotes, vitals and labs in [facility] EMR reviewed in full.SUBJECTIVE: Pt seen for first time on Video with my TERRY Mendy And RN , hereports less hallucinations , as they are still there in the morning But overall better since got back on vraylar told me was scheduled for ECT at [facility] but due to elective , it got [...] past 8 hrs: Temp Pulse Resp BP DzN02611/02/19 1546 98.3 F (36.8 C) 84 18 [...] (LOVENOX) injection 40 mg 40 mg SubCUTAneous F96SXvffysqtr Medications:C urrent Facility-Administered MedicationsMedication Dose Route Frequen [...] ENOX) injection 40 mg 40 mg SubCUTAneous V02FCAVSEDXOMJ/PLAN:Continue current kalie atment as pt is stabalizingPatient [...] Supporting Document(s ) ID Date Data Source [id number] 11/02/2019 03:02:33 PM EDT [facility] General Daily Progress NoteAdmit Date: Hospital [...] (LOVENOX) injection 40 mg 40 mg SubCUTAneous N26VXbdfxzata:Patient Vitals for the past 8 hrs: BP [...] contrast. Sagittal and coronal reconstruction was performed.[employer] mixing machine tender cork gasket algorithm the examination was performed to optimizeimaging [...] Name Value Range Interpretation Code Description Data [facility] rce(s) Supporting Document(s ) ID Date Data Source [id number] 11/02/2019 07:48:14 AM EDT [facility] Verbal shift change report given to Jody wells RN (oncoming nurse) by Juliane UGALDE (offgoing nurse). Report included the following information SBAR,Kardex, Intake/Output, MAR and Recent Results Name Value Range Interpretation Code Description Data [facility] rce(s) Supporting Document(s ) ID Date Data Source [id number] 11/02/2019 05:41:52 AM EDT [facility] Patient AOX3 with periodic confusion. In bed watching TV. All med's given asordered by MD, tolerated well. Fall precaution m easures reinforced. Call bellwithin reach, bed in low position. Has urinal and comm ode at bedside. Voices nocomplaint at this time. Will continue to monitor pt. Name Value Range Interpretation Code Description Data [facility] Supporting Document(s ) ID Date Data Source [id number] 11/01/2019 08:46:30 PM EDT [facility] Problem: Falls - Risk ofGoal: *Absence o [...] Document Harsh Scale and appropriate interventions in [facility].Outcome: P rogressing Towards GoalNote: Pressure Injury Interventions:Sensory [...] Name Value Range Interpretation Code Description Data [facility](s) Supporting Document(s ) ID Date Data Source [id number] 11/01/2019 08:00:09 PM EDT [facility] Verbal shift change report given to Ly vitale RN (oncoming nurse) by TRAM Palacio (offgoing nurse). Report included the following information SBAR,Intake/Output, MAR and Recent Results. Name Value Range Interpretation Code Description Data [facility](s) Supporting Document(s ) ID Date Data Source [id number] 11/01/2019 03:49:42 PM EDT [facility] Adult Progress NoteDate: 11/01/2019Account Number: [id number]: Maxwell Mendieta TrimbleDiagnosis: History of mood and [...] On e Bipolar disorder with severe depression ([facility]) 10/29/2019 Mixed anxiety and depr essive disorder 09/04/2019 Vitamin D deficiency 09/04/2019 Anxiety 0 Bipolar disorder ([facility]) 07/21/2019 Depressive disorder 07/21/2019 Status p ost gastric bypass for obesity 07/21/2019 Morbid obesity ([facility]) 07/21/2019 Severe obesity ([facility]) 07/19/2018 Spells 04/08/2016 Seizure disorder ([facility]) 04/30/2014 Insom kacey 11/04/2013 H/O gastric bypass 06/12/2013Past Surgical History:Procedur e Laterality Date ABDOMEN SURGERY PROC UNLISTED gastric bypass 2009 HX GASTRIC BYPASS roue-en-y HX ORTHOPAEDIC 1985 aarthroscopic knee surgery HX ORTHOPAED IC 1990 broken footNo Known AllergiesSocial HistoryTobacco Use Smoking status: Ness beaz Smoker Smokeless tobacco: Never UsedSubstance Use Topics [...] found.Assessment/Plan:Active Problems: Bipolar disorder with severe depression ([facility]) (10/29/2019)Psychotherapy (type and freque ncy) supportiveConsultation psychiatryMedications:Current [...] (LOVENOX) injection 40 mg 40 mg SubCUTAneous L40NGpa following information was reviewed and discussed: Patient [...] Supporting Document(s ) ID Date Data Source [id number] 11/01/2019 02:42:08 PM EDT [facility] General Daily Progress NoteAdmit Date: Hospital [...] past 8 hrs: BP Temp Pulse Resp LkQ09811/01/19 0715 101/67 98 F (36.7 C) 70 [...] Sagittal and coronal reconstr uction was performed.Utilizing mixing machine tender cork gasket algorithm the examination was performed to optimizeimaging [...] Prominent interstitial markings arefelt to reflect vascular micropaleontologist 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 Repeat PA andlateral views the chest are advised i f there is clinical concern for pneumoniaor congestive failure.Assessment:Active Pro blems: Bipolar disorder with severe depression (HCC) (10/29/2019)Plan:Marco g status Name Value Range Interpretation Code Description Data [facility] rce(s) Supporting Document(s ) ID Date Data Source [id number] 11/01/2019 07:08:12 AM EDT [facility] Verbal shift change report given to Chandrakant Albert RN (oncoming nurse) byMelanie Hoffmann RN (offgoing nurse). Report incl uded the following informationSBAR, Kardex, Intake/Output, MAR and Recent Results. Name Value Range Interpretation Code Description Data [facility] rce(s) Supporting Document(s ) ID Date Data Source [id number] 10/31/2019 07:59:03 PM EDT [facility] Verbal shift change report given to Shreya adrian RN (oncoming nurse) by TRAM Palacio (offgoing nurse). Report included the following information SBAR,Kardex, Intake/Output, MAR and Recent Results. Name Value Range Interpretation Code Description Data [facility] Supporting Document(s ) ID Date Data Source [id number] 10/31/2019 05:09:32 PM EDT [facility] Telehealth ConsultationPursuant to the e mergency declaration [...] [] Telephone [x] VideoconferenceSubjective:Patient: Maxwell BrayMRN #: [id number]: [id number]: 49 y.o. Sex: maleAdm it Date: 10/29/2019Attending: [...] week Gets together: Once a week Attends pentecostal service: More than 4 times per year [...] or mortal ity cardiac cath at [facility] approx 6-8 months ago Other unknown [...] past 8 hrs: BP Temp Pulse Resp DnL09010/31/19 0754 120/60 97.2 F (36.2 C) 70 20 95 %MENTA L STATUS EXAM:FINDINGS WITHIN NORMAL LIMITS (WNL) UNLESS OTHERWISE STATED BELOW:Sens orium [id number] Well relatedAppearance: OverweightMotor Behavior: Not examined Speech: [...] Supporting Document(s ) ID Date Data Source [id number] 10/31/2019 04:37:18 PM EDT [facility] [place], [place] [address]DWSZMHB: MAXWELL BRAYMRN: [id number]: [id number]#: [id number] DATE: 10/29/2019 CONSULTATIONHISTORY OF PRESENT ILLNESS: The [...] Klonopin.PAST MEDICAL HISTORY: Cardiac cath at [facility] six to eight months ago, concussions,periodic [...] RONAL AGUIRRE MDDD: 10/30/2019 14:44:41/BR /[id number] / [id number] Name Value Range Interpretation Code Description Data Melani rce(s) Supporting Document(s ) ID Date Data Source [id number] 10/31/2019 01:47:36 PM EDT [facility] General Daily Progress NoteAdmit Date: Hospital day: [...] Supporting Document(s ) ID Date Data Source [id number] 10/31/2019 12:59:26 PM EDT [facility] physical Therapy TREATMENTPatient: Maxwell Bray (49 y.o. [...] Supporting Document(s ) ID Date Data Source [id number] 10/31/2019 07:10:46 AM EDT [facility] Bedside and Verbal shift change report g cici Pablo RN (oncoming nurse)by Cristofer Valenzuela RN (offgoing nurse). Repo rt included the following information SBAR, Kardex, MARand Recent Results. Name Value Range Interpretation Code Description Data [facility](s) Supporting Document(s ) ID Date Data Source [id number] 10/30/2019 11:27:14 PM EDT [facility] Problem: Falls - Risk ofGoal: *Absence o [...] Name Value Range Interpretation Code Description Data [facility] Supporting Document(s ) ID Date Data Source [id number] 10/30/2019 08:09:55 PM EDT [facility] Rn Radha called as pt has been [...] be ordered as non formulary also At [facility] Name Value Range Interpretation Code Description Data [facility] Supporting Document(s ) ID Date Data Source [id number] 10/30/2019 08:06:30 PM EDT [facility] Telephoned Dr. Oc tompkins pt's c/o new sy mptoms of hallucinations. Orderedreceived, relayed to RN, TRAM Marroquin on waste handling technician Name Value Range Interpretation Code Description Data [facility] Supporting Document(s ) ID Date Data Source [id number] 10/30/2019 08:01:35 PM EDT [facility] Verbal shift change report given to Cecilia wells (oncoming nurse) by Samy Albert RN (offgoing nurse). Report included the fo llowing information SBAR, ProcedureSummary, Intake/Output, MAR and Recent Results. Name Value Range Interpretation Code Description Data [facility](s) Supporting Document(s ) ID Date Data Source [id number] 10/30/2019 02:58:51 PM EDT [facility] Problem: Mobility Impaired (Adult and Pe [...] of morbidity or mortality cardiac cath at [facility] approx 6-8 months ago Other unknown and [...] Home: NoneCritical Behavior:Neurologic State: AlertOrientation Level: Oriented Q0Azaxabbol: Appropriate for age attention/concentrationSafety/Judgement: Awareness of environmentSkin:Strength:Strength: [...] Name Value Range Interpretation Code Description Data [facility] Supporting Document(s ) ID Date Data Source [id number] 10/30/2019 02:50:37 PM EDT [facility] Telehealth ConsultationPursuant to the e mergency declaration [...] [] Telephone [] VideoconferenceSubjective:Patient: Maxwell BrayMRN #: [id number]: [id number]: 49 y.o. Sex: maleAdm it Date: 10/29/2019Attending: Ritika Canas, MDDate of Evaluation: 10/30/2019Reason fo r Referral: Maxwell Bray was admitted for being found on the floorand was unable t o get up.History of Presenting Problem:Patient is 49 y.o. male refd to psychiatry for having psychiatric illness.Consult dictated.Ronal Ayala MD 10/30/2019 11:14 AM Name Value Range Interpretation Code Description Data [facility] Supporting Document(s ) ID Date Data Source [id number] 10/30/2019 02:06:26 PM EDT [facility] Care Management InterventionsPCP Verifie d by CM: YesPalliative Care Criteria Met (RRAT>21 & CHF Dx)?: NoMode of Transport at Discharge: Other (see comment)(family)Transition of Care Consu lt (CM Consult): Discharge PlanningPhysical Therapy Consult: NoOccupational Therapy Consult: NoSpeech Therapy Consult: NoCurrent Support Network: Lives with Spouse, Own Home( [place]anca [phone],r-[phone])Confirm Foll ow Up Transport: FamilyThe Patient and/or Patient Compound Machine Operator was Provided with a Choice of Providerand [...] home with his , is completely independent BINDERY MANAGER, nohome DME. Patient normally works (pre-covid) and drives. CM dept roleexplained, patient is currently denying any HC or rehab needs and states hiswife will drive him home upon DC. PT eval is ordered and pending. CM dept laila lfollow if patient has any PT needs.CASE MANAGEMENT PSYCHOSOCIAL ASSESSMENTMaxwell Bray Admission Date: 10/29/2019MRN: [id number] of : 1970Current date: 10/30/2019DISCHARGE PLAN: homePatient Info rmation:Patients Preferred Name: Tmi Arrived Via: StretcherTransferred from a [facility] facility: NoInformation Obtained From: PatientPatient Objects to Receiving Bloo d: NoMRSA Assessment: Not applicableAuditory Impairment: NoneRetired Read Only-Readmi t Risk ToolSupport Systems: Family member(s)History of Falls Within Past 3 Months: NoNeeds Assistance with Wound Care AND/OR Mgnt of O2, Nebulizer: NoRequires Financial, Physical and/or Educational Assistance With Medications: NoHistory o f Mental Illness: NoLiving Alone: NoPCP: Ritika Canas MDAdmitting Provider: Cristi Canas MDRIVERSIDE [facility] INCHOMECARE BINDERY MANAGER: naPayor: Payor: [facility] / Plan: [facility] /Product Type: HMO /[facility] Payor: @[email or web address]@Bipolar disorder with severe depression (HCC) [F 31.4]Bipolar disorder with severe depression (HCC) [F31.4]Patient Active Problem List Diagnosis Code H/O gastric bypass Z98.84 Insomnia G47.00 Neuropathic pain of surekha ulder M79.2 Seizure disorder ([facility]) G40.909 Spells R68.89 Severe obesity ([facility]) E66. 01 Depression F32.9 Anxiety F41.9 Bipolar disorder (HCC) F31.9 Depressive disorde r F32.9 Status post gastric bypass for obesity Z98.84 Morbid obesity ([facility]) E66 .01 Mixed anxiety and depressive disorder F41.8 Vitamin D deficiency E55.9 Bipol ar disorder with severe depression ([facility]) F31.4Social HistorySubstance and Sexual ActivityAlcohol Use No [...] solving and planning: Notes:Adeq uate coping skills: Notes:Denominational/Cultural barriers: Notes:If unable to assess or n ot applicable: Notes:Suicide Assessment:Primary Diagnosis or Primary Complaint of an Emotional Behavior Disorder: NoPatient is Currently Experiencing Depr ession: NoSuicidal Ideation/Attempts: NoHomicidal Ideation/Attempts: NoAlcohol /Drug Intoxication: NoHallucinations/Delusions: NoPending, A ctive, or Temporary Senior Care Orders: NoAggressive/Inappropriate Behavior: NoR eadmit Risk:Support Systems: Family member(s)Advanced Care Planning:Confirm Advance Directive: NoneDiscussed with the patient and all questions fully answered . He will call me ifany problems arise. Name Value Range Interpretation Code Description Data Melani rce(s) Supporting Document(s ) ID Date Data Source [id number] 10/30/2019 12:38:13 PM EDT [facility] Daily Progress NoteAdmit Date: Hospital day: .tdSubjective:Patient markedly improved this am, speech now no rmal. Denies possibleinadvertent overdose of chronic meds. Accepting of psych consult . PT toevaluate. Claims symptoms of mild nausea. Meds reviewed claims to be takin gElavil G 150 mg HS ,Klonopin 1 mg twice a day, [place] twice daily, Vraylar3 m g dailyCurrent [...] past 8 hrs: BP Temp Pulse Resp ShJ70710/30/19 0727 (!) 130/96 98 F (36.7 C) [...] Name Value Range Interpretation Code Description Data [facility](s) Supporting Document(s ) ID Date Data Source [id number] 10/30/2019 07:52:05 AM EDT [facility] Verbal shift change report given to Chandrakant rosa RN (oncoming nurse) Tavares UGALDE (offgoing nurse). Report included the fo llowin information SBAR,Kardex, Procedure Summary, Intake/Output, MAR and Recent R esults. Name Value Range Interpretation Code Description [facility] Supporting Document[facility]s ) ID Date Data Source [id number] 10/30/2019 06:40:05 AM EDT [facility] Pt. AOX3, periodic confusion. Commode an d urinal at bedside. Seizure and fallprecaution measures in place. Voice s no complaint during shift . Name Value Range Interpretation Code Description Data [facility] Supporting Document(s ) ID Date Data Source [id number] 10/30/2019 07:29:12 AM EDT [facility] Name Value Range Interpretation Description Data Sup porting Code Source(s) Document(s ) Sodium 139 136-145 [facility] [Moles/volume] mmol/L [facility] in Serum or Hospital Plasma Potassium 3.6 3.5-5.1 [facility] [Moles/volume] mmol/L [facility] in Serum or Hospital Plasma Chloride 110 98-107 Above high normal [facility] [Moles/volume] mmol/L [facility] in Serum or Hospital Plasma Carbon 24 21-32 [facility] dioxide, total mmol/L [facility] [Moles/volume] Hospital in Serum or Plasma Anion gap in 9 mmol/L 10-20 Below low normal [facility] - Go od Serum or [facility] Plasma Hospital Glucose 96 mg/dL 74-106 [facility] [Mass/volume] [facility] in Serum or Hospital Plasma Urea nitrogen 10 mg/dL 7-18 [facility] [Mass/volume] [facility] in Serum or Hospital Plasma Creatinine 0.81 0.70-1.3 [facility] [Mass/volume] mg/dL 0 [facility] in Serum or Hospital Plasma Glomerular >60 [facility] filtration [facility] rate/1.73 sq M Hospital predicted among blacks [Volume Rate/Area] in Serum or Plasma by Creatinine-bas ed formula (MDRD) Glomerular >60 [facility] filtration [facility] rate/1.73 sq M Hospital predicted among non-blacks [Volume Rate/Area] in Serum or Plasma by Creatinine-bas ed formula (MDRD) Calcium 8.2 8.5-10.1 Below low normal [facility] [Mass/volume] mg/dL [facility] in Serum or Hospital Plasma ID Date Data Source [id number] 10/30/2019 07:05:07 AM EDT [facility] Name Value Range Interpretation Description Data Sup porting Code Source(s) Document(s ) Leukocytes 4.8 K/uL 4.8-10.6 [facility] - [#/volume] in Good Blood by [facility] Automated count [facility] Erythrocytes 4.59 4.70-6.0 Below low normal [facility] - [#/volume] in M/uL 0 Good Blood by [facility] Automated count Hospital Hemoglobin 14.0 14.0-18. [facility] - [Mass/volume] in g/dL 0 [facility] Blood [facility] Hematocrit 42.7 % 42.0-52. [facility] - [Volume 0 Good Fraction] of [facility] Blood by Hospital Automated count Erythrocyte mean 93.0 FL 81.0-94. [facility] - corpuscular 0 Good volume [Entitic [facility] volume] by Hospital Automated count Erythrocyte mean 30.5 PG 27.0-35. [facility] - corpuscular 0 Good hemoglobin [facility] [Entitic mass] Hospital by Automated count Erythrocyte mean 32.8 30.7-37. [facility] - corpuscular g/dL 3 Good hemoglobin [facility] concentration Hospital [Mass/volume] by Automated count Erythrocyte 13.3 % 11.5-14. [facility] - distribution 0 Good width [Ratio] by [facility] Automated count [facility] Platelets 159 K/uL 130-400 [facility] - [#/volume] in Good Blood by [facility] Automated count [facility] Platelet mean 8.6 FL 9.2-11.8 Below low normal [facility] - volume [Entitic Good volume] in Blood [facility] by Automated Hospital count Nucleated 0.0 PER 0 [facility] - erythrocytes/100 100 WBC Good leukocytes [facility] [Ratio] in Blood Hospital Nucleated 0.00 0.0-0.01 [facility] - erythrocytes K/uL Good [#/volume] in [facility] Segmented 54 % 48.0-72. [facility] - neutrophils/100 0 Good leukocytes in [facility] Lymphocytes/100 32 % 18.0-40. [facility] - leukocytes in 0 [facility] Blood [facility] Monocytes/100 9 % 2.0-12.0 [facility] - leukocytes in [facility] Blood [facility] Eosinophils/100 5 % 0.0-7.0 [facility] - leukocytes in [facility] Blood [facility] Basophils/100 1 % 0.0-3.0 [facility] - leukocytes in [facility] Blood [facility] Immature 0 % 0-0.5 [facility] - granulocytes/100 Good leukocytes in [facility] Blood by Hospital Automated count Segmented 2.6 K/UL 2.3-7.6 [facility] - neutrophils Good [#/volume] in [facility] Hospital Lymphocytes 1.5 K/UL 0.9-4.2 [facility] - [#/volume] in [facility] Blood [facility] Monocytes 0.4 K/UL 0.1-1.7 [facility] - [#/volume] in [facility] Eosinophils 0.2 K/UL 0.0-1.0 [facility] - [#/volume] in [facility] Basophils 0.0 K/UL 0.0-0.4 [facility] - [#/volume] in [facility] Immature 0.0 K/UL 0.0-0.17 [facility] - granulocytes Good [#/volume] in [facility] Blood [facility] Automated count Differential [facility] - cell count [facility] method [facility] ID Date Data Source [id number] 10/29/2019 07:40:21 PM EDT [facility] Verbal shift change report given to Wai rogers RN(oncoming nurse) by Elizabeth Meehan RN (offgoing nurse). Report included the fo llowing information SBAR, Kardex, EDSummary, Intake/Output, MAR and Recent Results. Name Value Range Interpretation Code Description Data Melani rce(s) Supporting Document(s ) ID Date Data Source [id number] 10/30/2019 06:54:22 PM EDT [facility] Name Value Range Interpretation Description Data Sup porting Code Source(s) Document(s ) Color of Urine YEL [facility] Appearance of CLEAR [facility] - [facility] Specific gravity 1.015 1.003-1. [facility] - of Urine by 030 [facility] Refractometry [facility] pH of Urine by 6.0 4.6-8.0 [facility] - Test strip [facility] Protein NEG [facility] - [Mass/volume] in Good Urine by Test [facility] Glucose NEG [facility] - [Mass/volume] in Good Urine by [facility] Automated test [facility] strip Ketones NEG [facility] - [Presence] in Good Urine by [facility] Automated test [facility] strip Bilirubin.total NEG [facility] - [Presence] in Good Urine [facility] Hemoglobin NEG [facility] - [Presence] in Good Urine by Test [facility] Urobilinogen 1.0 0.2-1.0 [facility] - [Presence] in EU/dL Good Urine by [facility] Automated test [facility] strip Nitrite NEG [facility] - [Presence] in Good Urine by [facility] Automated test [facility] strip Leukocyte NEG [facility] - esterase Good [Presence] in [facility] Urine by Hospital Automated test strip ID Date Data Source [id number] 10/29/2019 06:14:12 PM EDT [facility] Spoke with to clarify meds..correct doses obtained Name Value Range Interpretation Code Description Data Melani rce(s) Supporting Document(s ) ID Date Data Source [id number] 10/29/2019 06:01:22 PM EDT [facility] Pt unsure of dose of Vraylar will call w berta Name Value Range Interpretation Code Description Data Melani rce(s) Supporting Document(s ) ID Date Data Source [id number] 10/29/2019 03:56:40 PM EDT [facility] [id number] [facility] 4 [address] [place] MED SURG [address] [facility] [address] [phone] Maxwell Bray (Male) [id number] ES I 2 ED Dispo:ADMIT Chief Complaint: Dysarthria, Lethargy Diagnosis: Altered mental status, unspecified altered mental statu s type [] Bipolar disorder with severe depression (HCC) [] Current Providers: Att ending: Cole Ernandez; Cristi Canas Consulting Provider: Cristi Canas Primary Nurse: Kristy Moss Tech: HERMANN GonzalesN: [phone] [employer] [phone] - Bs hsi [employer] MrnMRN: [id number] [employer] [phone] - Bshsi [employer] Age Sex 1970 AGE 49 SEX Male Primary Care Provider: Ritika Canas MD Ylsyujtpe: (No Kn own Allergies)Date Reviewed: 10/29/2019Reviewed by: Ritika Canas MD - Review CompleteED Provider Notes: All no tesHNO ID: [id number]: Cristobal Ernandez MDService: -Author Type: PhysicianFiled: 10/29/19 [...] morbidity or mortality cardiac cath at [facility] approx 6-8 months ago Other unknown [...] week Gets together: Once a week Attends pentecostal service: More than 4 times per year [...] QTC Calculation (Bezet) 446 ms Calculated P [place] 53 degrees Calc ulated R [place] 68 degrees Calculated T [place] 0 degrees Diagnosis Sinus tachycardiaProlonged [place] intervalNo nspecific intraventricular conduction delayCBC WITH AUTOMATED [...] Time: 10/29/19 10:45 AMResult Value Ref Range [place] level <0.20 (L) 0.6 - 1.2 MMOL/L [...] contrast. Sagittal and coronalreconstruction was performed. Utilizing mixing machine tender cork gasket algorithm theexaminationwas performed to optimize imaging quality [...] status, unspecified altered menta l status type R41.21122.97Patient condition at time of disposition: StableI have [...] d thediagnostic studies, unless otherwise noted.+ED Orders [id number] CBC WITH AUTOMATED DIFF [# [id number]] Priority: STAT Class: ER Collect Standing Order Information Remaining Occurrences:0 /1 Interval:ONE TIME Last released:10/29/2019 Released orders: SunOctober 29, 2019 11:02 AM by: CRISTOBAL ERNANDEZ [id number] METABOLIC PANEL, COMPREHENSIVE [#[id number]] Bridgette ority: STAT Class: ER Collect Standing Order Information Remaining Occurrences:0/1 Inter haile:ONE TIME Last released:10/29/2019 Released orders: SunOctober 29, 2019 11:02 AM by: CRISTOBAL WADE [id number] PROTHROMBIN TIME + INR [#[id number]] Priority: STAT Class: E R Collect Standing Order Information Remaining Occurrences:0/1 Interval:ONE TI ME Last released:10/29/2019 Released orders: SunOctober 29, 2019 11:02 AM by: BRIE ERNANDEZ [id number] PTT [#[id number]] Priority: STAT Class: ER Collect Speci men Source: Blood Standing Order Information Remaining Occurrences:0/1 Interval:ONE TI ME Last released:10/29/2019 Released orders: SunOctober 29, 2019 11:02 AM by: BRIE ERNANDEZ [id number] URINALYSIS W/ RFLX MICROSCOPIC [#[id number]] Priority: STAT Class: ER Collect Sta nding Order Information Remaining Occurrences:0/1 Interval:ONE TIME Last released:0 10/29/2019 Released orders: SunOctober 29, 2019 11:02 AM by: CRISTOBAL ERNANDEZ [id number] LITHIUM [#[id number]] Priority: STAT Class: ER Collect Standing Order Information Remaining Occurrences:0/1 Interval:ONE TIME Last released:10/29/2019 Released orders : SunOctober 29, 2019 11:02 AM by: CRISTOBAL ERNANDEZ [id number] CBC WITH AUTOMATED DIFF [# [id number]] Priority: STAT Class: ER Collect Specimen Source: Whole Blood Specimen Collected: 020 10:45 AM Resulting Agency: [facility] Test ID: CBCXA Released on: 0 11:02 AM [id number] METABOLIC PANEL, COMPREHENSIVE [#[id number]] Priority: STAT Class: E R Collect Specimen Source: Plasma Specimen Collected: 10/29/2019 10:45 AM Resulting Agency: [facility] Test ID: MPL Released on: 10/29/2019 11:02 AM [id number] PROTHROMBIN TIME + IN R [#[id number]] Priority: STAT Class: ER Collect Specimen Source: Plasma Specimen Collec hyun: 10/29/2019 10:45 AM Resulting Agency: [facility] Test ID: APTHR Released o n: 10/29/2019 11:02 AM [id number] PTT [#[id number]] Priority: STAT Class: ER Collect Specimen Source: Plasma Specimen Collected: 10/29/2019 10:45 AM Resulting Agency: [facility] Test ID: APTT Released on: 10/29/2019 11:02 AM [id number] URINALYSIS W/ RFLX DC CROSCOPIC [#[id number]] Priority: STAT Class: ER Collect Resulting Agency[facility] Test ID: UA Released on: 10/29/2019 11:02 AM [id number] LITHIUM [#[id number]] Priority: STAT Class: ER Collect Specimen Source: Serum Specimen Collected: 10/28 10:45 AM Resulting Agency: [facility] Test ID: LI Released on: 10/29/2019 11:02 AM [id number] CBC WITH AUTOMATED DIFF [#[id number]] Priority: STAT Class: E R Collect Standing Order Information Remaining Occurrences:1 Interval:TOMORR OW AM [id number] METABOLIC PANEL, BASIC [#[id number]] Priority: STAT Class: ER Collect St anding Order Information Remaining Occurrences:1 Interval:TOMORROW AM [id number] CT HEAD W O CONT [#[id number]] Priority: Routine Class: Hospital Performed Standing Or mariano Information Remaining Occurrences:0/1 Interval:ONE TIME Last released:10/29/2019 Released orders: SunOctober 29, 2019 11:02 AM by: CRISTOBAL ERNANDEZ Reason for Exam -> ams IMG 2590 XR CHEST PORT [#[id number]] Priority: STAT Class: Hospital Performe d Standing Order Information Remaining Occurrences:0/1 Interval:ONE TIME Last release d:10/29/2019 Released orders: SunOctober 29, 2019 11:02 AM by: AWAIS, CRISTOBAL Reason for Exam -> ams [id number] CT HEAD WO CONT [#[id number]] Priority: STAT Class: Hospital Perfo rmed Specimen Collected: 10/29/2019 11:54 AM Resulting Agency: [facility] Test ID: [id number] [place] son for Exam -> ams Released on: 10/29/2019 11:02 AM [id number] XR CHEST PORT [#[id number]] Priority: STAT Class: Hospital Performed Specimen Collected: 10/29/2019 12:16 PM Resultin g Agency: [facility] Test ID: [id number] Reason for Exam -> ams Released on: 10/29/2019 11:02 AM [id number] EKG, 12 LEAD, INITIAL [#[id number]] Priority: STAT Class: Hospital Performe d Standing Order Information Remaining Occurrences:0/1 Interval:ONE TIME Last release d:10/29/2019 Released orders: SunOctober 29, 2019 11:02 AM by: CRISTOBAL ERNANDEZ Reason for Exam : -> chest pain [id number] EKG, 12 LEAD, INITIAL [#[id number]] Priority: STAT Class: H ospital Performed Resulting Agency: [facility] Test ID: [id number] Reason for Exam: -> chest pain Releas ed on: 10/29/2019 11:02 AM [id number] POC GLUCOSE [#[id number]] Priority: STAT Cl ass: Hospital Performed Standing Order Information Remaining Occurrences:0/1 Interval:ONE TI ME Last released:10/29/2019 Released orders: SunOctober 29, 2019 11:02 AM by: BRIE ERNANDEZ [id number] POC GLUCOSE [#[id number]] Priority: STAT Class: Hospital Performe d Released on: 10/29/2019 11:02 AM [id number] VITAL SIGNS PER UNIT ROUTINE [#[id number]] Priorit y: STAT Class: Hospital Performed Standing Order Information Remaining Occurrences:0/1 Inte rval:CONTINUOUS Last released:10/29/2019 Released orders: SunOctober 29, 2019 2:54 PM by: RITIKA CANAS Comment:More frequently if Indicated. [id number] BEDREST, COMPLETE [#[id number]] Priority: STAT Class: Hospital Performed Standing Order Information Remainin g Occurrences:0/1 Interval:CONTINUOUS Last released:10/29/2019 Released orders : SunOctober 29, 2019 2:54 PM by: RITIKA CANAS2031 NOTIFY PROVIDER: VITAL SIGNS CHANGES [# [id number]] Priority: STAT Class: Hospital Performed Standing Order [...] Less than 120 ml in 4 hours [id number] APPLY/MAINTAIN SEQUENTIAL COMPRESSIO* [#[id number]] Priority: ST AT Class: Hospital Performed Standing Order Information Remaining Occurrences:0/1 Inter haile:CONTINUOUS Last released:10/29/2019 Released orders: SunOctober 29, 2019 2:54 PM by: RITIKA CANAS [id number] VITAL SIGNS PER UNIT ROUTINE [#[id number]] Priority: STAT Class: H ospital Performed Comment:More frequently if Indicated. Released on: 10/29/2019 2:54 PM [id number] 4 BEDREST, COMPLETE [#[id number]] Priority: STAT Class: Hospital Performed Relea sed on: 10/29/2019 2:54 PM [id number] NOTIFY PROVIDER: VITAL SIGNS CHANGES [#[id number]] Priority: STAT Class: Hospital Performed Temp -> [...] carmen rs Released on: 10/29/2019 2:54 PM [id number] APPLY/MAINTAIN SEQUENTIAL COMPRESSIO* [#[id number]] P riority: STAT Class: Hospital Performed Released on: 10/29/2019 2:54 PM SODIUM CHLORIDE 0.9 % IJ SYRG [#[id number]] Priority: STAT Class: Normal SODIUM CHLORIDE 0.9 % IJ SYRG [#[id number]] Priority: STAT Class: Normal ACETAMINOPHEN 325 MG TABLET [# [id number]] Priority: STAT Class: Normal ENOXAPARIN 40 MG/0.4 ML SUB-Q SYRINGE [#[id number]] Priority: STAT Class: Normal SODIUM CHLORIDE 0.9 % IV [#[id number]] Priority: STAT Class: Normal QLY3272 GLUCOSE, POC [#[id number]] Priority: Routine Class : ER Collect Resulting Agency: [facility] Test ID: BGG Standing Order Informati on Remaining Occurrences:0/1 Released orders: SunOctober 29, 2019 11:26 AM by: Automatic B atch Process [id number] GLUCOSE, POC [#[id number]] Priority: Routine Class : ER Collect Specimen Source: Whole Blood Specimen Collected: 10/29/2019 11:26 AM Resulting Agency: [facility] Test ID: BGG Released on: 10/29/2019 11:26 AM [id number] IP CONSULT TO PRIMARY CARE PROVIDER [#[id number]] Priority: STAT Class: Hospital Performed Standing Order Inf ormation Remaining Occurrences:0/1 Interval:ONE TIME Last released:10/29/2019 Relea sed orders: SunOctober 29, 2019 12:59 PM by: CRISTOBAL ERNANDEZ Reason for Consult: -> admit Did you call or speak to the consulting provider? -> No Consult To -> dr canas [id number] IP CONSULT TO PRIMAR Y CARE PROVIDER [#[id number]] Priority: STAT Class: Hospital Performed Reason for Consult: -> ad rei Did you call or speak to the consulting provider? -> No Consult To -> dr canas Released on: 12:59 PM CON53 IP CONSULT TO PSYCHIATRY [#[id number]] Priority: STAT Class: H ospital Performed Standing Order Information Remaining Occurrences:0/1 Interval:ONE TI ME Last released:10/29/2019 Released orders: SunOctober 29, 2019 2:54 PM by: RITIKA CANAS Reason for Consult: -> 49 yo male with severe bipolar disease, admitted with s lurred speech, severe weakness Did you call or speak to the consulting provider? -> No Consult To -> Dr Aguirer Schedule When? -> TODAY CON53 IP CONSULT TO PSYCHIATRY [#[id number]] Priority: STAT Class: Hospital Performed Reason for Consult: -> 49 yo male with severe bipolar diseas e, admitted with slurred speech, severe weakness Did you call or speak to t he consulting provider? -> No Consult To -> Dr Aguirre Schedule When? -> TODAY Released on: 10/29/2019 2:54 PM [id number] INITIAL PHYSICIAN ORDER: INPATIENT [#[id number]] Priority: Routine Class : ADT Pend Transfer [...] CANAS Estimated Length of Stay -> 3-4 [facility] Discharge Plan: -> Home with Office Follow-up [id number] INITIAL PHYSICIAN ORDER: INPATIENT [# [id number]] Priority: Routine Class: ADT Pend Transfer Status: [...] Foll ow-up Released on: 10/29/2019 2:43 PM GZA904 INITIAL PHYSICIAN ORDER: INPATIENT [#[id number]] Priority: Routine Class: ADT Pend Transfer [...] 3-4 Midnights Discharge Plan: -> Other (Specify) [id number] INITIAL PHYSIC JOSE ORDER: INPATIENT [#[id number]] Priority: Routine Class: ADT Pend Transfer Status: [...] 2:54 PM IVT3 INSERT PERIPHERAL IV [# [id number]] Priority: STAT Class: Hospital Performed Standing Order Information Remaining Occurre nces:0/1 Interval:ONE TIME Last released:10/29/2019 Released orders: SunOctober 28 020 2:54 PM by: RITIKA CANAS IVT3 INSERT PERIPHERAL IV [#[id number]] Priority: ST AT Class: Hospital Performed Released on: 10/29/2019 2:54 PM CON75 IP CONSULT TO PHYSICAL THERAPY [#[id number]] Priority: STAT Class: Hospital Performed Standing Order Information Remainin g Occurrences:14/15 Interval:DAILY Last released:10/29/2019 Released orders : SunOctober 29, 2019 2:54 PM by: RITIKA CANAS CON75 IP CONSULT TO PHYSICAL THERAPY [#[id number]] Priority: STAT Class: Hospital Performed Released on: 10/29/2019 2:54 PM COD2 FULL CODE [#[id number]] Priority: STAT Class: Hospital Performed Standing Order Inf ormation Remaining Occurrences:0/1 Interval:CONTINUOUS Last released:10/29/2019 Rel eased orders: SunOctober 29, 2019 2:54 PM by: RITIKA CANAS COD2 FULL CODE [#[id number]] Priority: STAT Class: Hospital Performed Released on: 10/29/2019 2:54 PM DIET10 4 DIET FULL LIQUID [#[id number]] Priority: STAT Class: Hospital Performed Stand ing Order Information Remaining Occurrences:0/1 Interval:DIET EFFECTIVE NOW Last released:10/29/2019 Released orders: SunOctober 29, 2019 2:54 PM by: RITIKA CANAS Comment:A dvance as tolerated to regular diet [id number] DIET FULL LIQUID [#[id number]] Priority: STAT Class: Hospital Performed Comment:Advance as tolerated to regular diet Released on: 10/29/2019 2:54 Maxwell Corona MR#: [id number] * Rm: [id number]: 5' 7" Wt: 3 00 lb Code: Full Code Iso:Diagnosis:Bipolar disorder with severe depression (HCC) [F31.4]Allergies : No Known Allergies -------- Current as of: 10/29/19 1556 ---aspirin (ASPIRIN) tablet 325 mg #[id number] Admin Amount: 1 Tab (1 x 325 mg Tab) Ordered Dose: 325 mg Route: Oral Freq: ONCE Start Date: 12/24/13 No administration times (back 96 hours, ahead 96 hours). ------diphenhydrAMINE (BENADRYL) capsule 50 mg #[id number] Admin Amount: 1 Cap (1 x 50 mg Cap) Ordered Dose: 50 mg Ro [place]: Oral Freq: NOW Start Date: 12/24/13 No administration times (back 96 hours, ahe ad 96 hours). ------diazepam (VALIUM) tablet 5 mg #[id number] Admin Amount: 1 Tab (1 x 5 mg Tab) Ordered Dose: 5 mg Route: Ora l Freq: ONCE Start Date: 12/24/13 No administration times (back 96 hours, ahe ad 96 hours). ------lidocaine (XYLOCAINE) 10 mg/mL (1 %) injection 1-30 mL #[id number] Admin Amount: 1-30 mL Ordered Dose: 1-30 mL Route: IntraDERMal Freq: ONC E Start Date: 12/24/13 No administration times (back 96 hours, ahead 96 hours). ------heparin (PF) 2 units/ml in NS infusion 2,000 Units #[id number] Admin Amount: 1,000 mL = 2,000 Units of 2 Units/mL Ordered Dose: 1,000 mL Route: Irrigation Freq: ONCE Start Date: 12/24/13 No administration times (b ack 96 hours, ahead 96 hours). ------heparinized saline 2 units/mL infusion 1,000 Units #[id number] Admin Amount: 500 mL = 1,000 Units of 2 Units/mL Ordered Dose: 500 mL R oute: IntraarTERial Freq: ONCE Start Date: 12/24/13 No administration times (back 96 hours, ahead 96 hours). ------0.9% sodium chloride infusion #[id number] Ordered Dose: 75 mL/hr Route: IntraVENous Freq: CONTINUOUS Start Date: 12/24/13 Rate: 75 mL/hr Duration: No administration times (back 96 hours, ahead 96 hours). ------ioversol (OPTIRAY) 320 mg iodine/mL contrast injection 1-100 mL #[id number] Admin Amount: 1-100 mL Ordered Dose: 1-100 mL Route: IntraVENous Freq: RAD ONCE Start Date: 12/24/13 No administration times (back 96 hours, ahead 96 hours).Maxwell Bray MR#: [id number] * Rm: [id number]: 5' 7" Wt: 300 lb Code: Full Code Iso:Diagnosis:Bipolar disorder with severe depression (HCC) [F31.4]Allergies: No Kn own Allergies -------- Current as of: 10/29/19 1556 ---gadobutrol (GADAVIST) contrast solution 1-10 mL #[id number] Admin Amount: 1-10 mL Ordered Dose: 1-10 mL Route: IntraVENo us Freq: RAD ONCE Start Date: 01/13/14 No administration times (back 96 hours, ahe ad 96 hours). ------sodium chloride (NS) flush 5-10 mL #[id number] Admin Amount: 5-10 mL Ordered Dose: 5-10 mL Route: IntraVENous Freq: RA D ONCE Start Date: 01/13/14 No administration times (back 96 hours, ahead 96 hours). ------sodium chloride (NS) 0.9 % flush #[id number] Ordered Dose: Route: Freq: Start D ate: 01/13/14 No administration times (back 96 hours, ahead 96 hours). ------morphine injection 2 mg #[id number] Admin Amount: 1 mL = 2 mg of 2 mg/mL Ordered Dose: 2 mg Route: Int raVENous Freq: NOW Start Date: 03/13/15 No administration times (back 96 hours, ahe ad 96 hours). ------influenza vaccine (4 yr+)(PF) (FLUCELVAX QUAD) inj ection 0.5*#[id number] Admin Amount: 0.5 mL Ordered Dose: 0.5 mL Route: IntraMUSCular Freq : PRIOR TO DISCHARGE Start Date: 03/30/16 No administration times (back 96 hours, ahead 96 hours). ------oxyCODONE-acetaminophe n (PERCOCET) 5-325 mg per tablet 1 Tab #[id number] Admin Amount: 1 Tab Ordered Dose: 1 Tab Route: Oral Freq: NOW Start Date: 09/07/17 No administration times (back 96 hours, ahead 96 hours). ------barium sulfate (READICAT) 2.1 % (w/v), 2.0 % (w /w) oral suspension 9*#[id number] Admin Amount: 900 mL Ordered Dose: 900 mL Route: Ora l Freq: RAD ONCE Start Date: 10/15/17 No administration times (back 96 hours, ahe ad 96 hours). ------iopamidol (ISOVUE 300) 61 % contrast injection 100 mL #[id number] Admin Amount: 100 mL Ordered Dose: 100 mL Route: IntraVENous Freq: RAD O NCE Start Date: 10/15/17 No administration times (back 96 hours, ahead 96 hours).Maxwell Bray MR#: [id number] * Rm: [id number]: 5' 7" Wt: 300 lb Cod e: Full Code Iso:Diagnosis:Bipolar disorder with severe depression (HCC) [F31.4]Allergies: No Kn own Allergies -------- Current as of: 10/29/19 1556 ---risperiDONE (RisperDAL m-tabs) disintegrating tablet 1 mg #[id number] Admin Amount: 1 Tab (1 x 1 mg Tab) Ordered Dose: 1 mg [place]: Oral Freq: ONCE Start Date: 12/24/17 No administration times (back 96 hours, e ad 96 hours). ------ALPRAZolam (XANAX) tablet 2 mg #[id number] Admin Amount: 4 Tab (4 x 0.5 mg Tab) Ordered Dose: 2 mg Route: Ora l Freq: NOW Start Date: 12/24/17 No administration times (back 96 hours, e ad 96 hours). ------lamoTRIgine (LaMICtal) tablet 100 mg #[id number] Admin Amount: 1 Tab (1 x 100 mg Tab) Ordered Dose: 100 mg Route: Ora l Freq: ONCE Start Date: 12/24/17 No administration times (back 96 hours, e ad 96 hours). ------OLANZapine (ZyPREXA zydis) disintegrating tablet 5 mg #[id number] Admin Amount: 1 Tab (1 x 5 mg Tab) Ordered Dose: 5 mg Route: Ora l Freq: ONCE Start Date: 12/25/17 No administration times (back 96 hours, e ad 96 hours). ------LORazepam (ATIVAN) tablet 2 mg #[id number] Admin Amount: 4 Tab (4 x 0.5 mg Tab) Ordered Dose: 2 mg Route: Ora l Freq: NOW Start Date: 12/25/17 No administration times (back 96 hours, e ad 96 hours). ------LORazepam (ATIVAN) injection 1 mg #[id number] Admin Amount: 0.5 mL = 1 mg of 2 mg/mL Ordered Dose: 1 mg [place]: IntraVENous Freq: NOW Start Date: 12/25/17 No administration times (back 96 hours, ahead 96 hours). ------barium sulfate (EZ PAQUE) 96 % (w/w) contrast suspension 17 6 g #[id number] Admin Amount: 176 g Ordered Dose: 176 g Route: Oral Freq: RAD ONCE Start Date: 08/02/18 No administration times (back 96 hours, ahead 96 hours). ------barium sulfate (EZ PAQUE) 96 % (w/w) contrast suspension 17 6 g #[id number] Admin Amount: 176 g Ordered Dose: 176 g Route: Oral Freq: RAD ONCE Start Date: 08/02/18 No administration times (back 96 hours, ahead 96 hours).Maxwell Bray MR#: [id number] * Rm: [id number]: 5' 7" Wt: 300 lb Code: Full Co de Iso:Diagnosis:Bipolar disorder with severe depression ([facility]) [F31.4]Allergies: No Known Allergies -------- Current as of: 10/29/19 1556 ---aspirin chewable tablet 162 mg #[id number] Admin Amount: 2 Tab (2 x 81 mg Tab) Ordered Dose: 162 mg Route: Ora l Freq: NOW Start Date: 08/10/19 No administration times (back 96 hours, ahe ad 96 hours). ------0.9% sodium chloride infusion 1,000 mL #[id number] Admin Amount: 1,000 mL Ordered Dose: 1,000 mL Route: IntraVENous Freq: O NCE Start Date: 08/16/19 Rate: 1,000 mL/hr Duration: No administratio n times (back 96 hours, ahead 96 hours). ------methylPREDNISolone (PF) (Solu-MEDROL) injection 125 mg #[id number] Admin Amount: 2 mL = 125 mg of 125 mg/2 mL Ordered Dose: 125 mg [place]: IntraVENous Freq: NOW Start Date: 08/16/19 No administration times (back 9 6 hours, ahead 96 hours). ------aspirin chewable tablet 162 mg #[id number] Admin Amount: 2 Tab (2 x 81 mg Tab) Ordered Dose: 162 mg Route: Ora l Freq: NOW Start Date: 08/16/19 No administration times (back 96 hours, e ad 96 hours). ------sodium chloride (NS) flush 5-40 mL #[id number] Admin Amount: 5-40 mL Ordered Dose: 5-40 mL Route: IntraVENous Freq: EV AN 8 HOURS Start Date: 10/29/19 Administration times (back 96 hours, ahead 96 hours): : 1400 2200 10/30/19: 06 1400 219910/31/19: 599 1400 219911/01/19: 599 1400 219911/02/19: 599 1400 ---sodium chloride (NS) flush 5-40 mL #[id number] Admin Amount: 5-40 mL Ordered Dose: 5-40 mL Route: IntraVENous Freq: NEEDED Start Date: 10/29/19 No administration times (back 96 hours, ahead 96 hours). ------acetaminophen (TYLENOL) tablet 650 mg #[id number] Admin Amount: 2 Tab (2 x 325 mg Tab) Ordered Dose: 650 mg [place]: Oral Freq: EVERY 4 HOURS NEEDED Start Date: 10/29/19 No administration times (back 96 hours, ahe ad 96 hours).Maxwell Bray MR#: [id number] * Rm: [id number]: 5' 7" Wt: 3 00 lb Code: Full Code Iso:Diagnosis:Bipolar disorder with severe depression (HCC) [F31.4]Allergies : No Known Allergies -------- Current as of: 10/29/19 1556 ---enoxaparin (LOVENOX) injection 40 mg #[id number] Admin Amount: 0.4 mL = 40 mg of 40 mg/0.4 mL Ordered Dose: 40 mg Route: SubCUTAneous Freq: EVERY 24 HOURS Start Date: 10/29/19 Administration times (back 96 hours, ahead 96 hours): 10/29/19: 145410/30/19: 145410/31/19: 145411/01/19: 145411/02/19 : 5 ---0.9% sodium chloride infusion #[id number] Ordered Dose: 100 mL/hr Route: IntraVENous Freq: [...] Supporting Document(s ) ID Date Data Source [id number] 10/29/2019 03:54:13 PM EDT [facility] History & PhysicalBrian Anam Bray is a [...] is barely intelligible.Phone call to his Benjamin whiet indicates the patient has been taking hismedication [...] morbidity or mortality cardiac cath at [facility] approx 6-8 months ag o Other [...] week Gets together: Once a week Attends pentecostal service: More than 4 times per year [...] trast. Sagittal and coronal reconstruction was performed.Utilizing mixing machine tender cork gasket alg orithm the examination was performed to [...] QTC Calculation (Bezet) 446 ms Calculated P [place] 53 degrees Calculat ed R [place] 68 degrees Calculated T [place] 0 degrees Diagnosis Sinus tachycardiaProl onged [place] intervalNonspecific intraventricular conduction delayCBC WITH AUTOMATED DIFF [...] lydia: 10/29/19 10:45 AMResult Value Ref Range [place] level <0.20 (L) 0.6 - 1.2 MMOL/L GLUCOSE, POC Collection Time: 10/29/19 11:26 AMResult Value Ref Range Glucose, bedsid e 102 65 - 110 MG/DLAll lab results for the last 24 hours reviewed.Assessment/PlanAc tive Problems: Bipolar disorder with severe depression (HCC) (10/29/2019) possible [place] dvertentoverdoseGeorge MD Corey Name Value Range Interpretation Code Description Data Melani rce(s) Supporting Document(s ) ID Date Data Source [id number] 10/29/2019 03:42:10 PM EDT [facility] TRANSFER - OUT REPORT:Verbal report give n [...] Supporting Document(s ) ID Date Data Source [id number] 10/29/2019 02:28:59 PM EDT [facility] The history is provided by the spouse.10 [...] or mortal ity cardiac cath at [facility] approx 6-8 months ago Other unknown [...] week Gets together: Once a week Attends pentecostal service: More than 4 times per year [...] QTC Calculation (Bezet) 446 ms Calculated P [place] 53 degr ees Calculated R [place] 68 degrees Calculated T [place] 0 degrees Diagnosis Sinus tachycar diaProlonged [place] intervalNonspecific intraventricular conduction delayCBC WIT H AUTOMATED [...] lydia: 10/29/19 10:45 AMResult Value Ref Range [place] level <0.20 (L) 0.6 - 1.2 MMOL/L [...] Sagittal and coronalreconstru ction was performed. Utilizing mixing machine tender cork gasket algorithm the examinationwas performed t o optimize [...] Supporting Document(s ) ID Date Data Source [id number] 10/29/2019 12:17:28 PM EDT [facility] XR CHEST PORTCLINICAL INDICATION PROVIDE D:. [...] Supporting Document(s ) ID Date Data Source [id number] 10/29/2019 11:55:57 AM EDT [facility] CT HEAD WO CONTClinical data: amsPriors: 03/13/2015.Technique: Multiple axial images were obtained from the skullbase to the vertexwithout administration of intravenous contrast. Sagittal and coronalreconstru ction was performed. Utilizing mixing machine tender cork gasket algorithm the examinationwas performed t o optimize [...] Supporting Document(s ) ID Date Data Source [id number] 10/29/2019 11:48:34 AM EDT [facility] Name Value Range Interpretation Description Data Sup porting Code Source(s) Document(s ) Glucose 102 MG/DL 65-110 [facility] [Mass/volume] [facility] in Blood by [facility] Automated test strip ID Date Data Source [id number] 10/29/2019 10:49:56 AM EDT [facility] Patient lethargic, BIBA from home for le thargy and slurred speech. Name Value Range Interpretation Code Description Data Melani rce(s) Supporting Document(s ) ID Date Data Source [id number] 10/29/2019 11:29:33 AM EDT [facility] Name Value Range Interpretation Code Description Data Supporting Source(s) Document(s ) [place] 0.6-1.2 Below low normal [facility] [Moles/volum Yazidi e] in Serum Hospital or Plasma ID Date Data Source [id number] 10/29/2019 11:28:52 AM EDT [facility] Name Value Range Interpretation Description Data Sup porting Code Source(s) Document(s ) Sodium 136 136-145 [facility] [Moles/volume] mmol/L [facility] in Serum or Hospital Plasma Potassium 4.4 3.5-5.1 [facility] [Moles/volume] mmol/L [facility] in Serum or Hospital Plasma Chloride 106 98-107 [facility] [Moles/volume] mmol/L [facility] in Serum or Hospital Plasma Carbon 22 21-32 [facility] dioxide, total mmol/L [facility] [Moles/volume] Hospital in Serum or Plasma Anion gap in 12 10-20 [facility] Serum or mmol/L [facility] Plasma Hospital Glucose 108 74-106 Above high normal [facility] [Mass/volume] mg/dL [facility] in Serum or Hospital Plasma Urea nitrogen 16 mg/dL 7-18 [facility] [Mass/volume] [facility] in Serum or Hospital Plasma Creatinine 1.05 0.70-1.3 [facility] [Mass/volume] mg/dL 0 [facility] in Serum or Hospital Plasma Glomerular >60 [facility] filtration [facility] rate/1.73 sq M Hospital predicted among blacks [Volume Rate/Area] in Serum or Plasma by Creatinine-bas ed formula (MDRD) Glomerular >60 [facility] filtration [facility] rate/1.73 sq M Hospital predicted among non-blacks [Volume Rate/Area] in Serum or Plasma by Creatinine-bas ed formula (MDRD) (NOTE)Estimated GFR is calculated using the Modification of Diet in RenalDisease (MDRD) Study equation, reported for both Americans(GFRAA) and non- Americans (GFRNA), and normalized to 1.7 0n3krbk surface area. The physician must decide which [...] 8.5-10.1 [facility] Serum or Plasma [facility] ital Bilirubin.total 0.7 mg/dL 0.2-1.0 [facility] [Mass/volume] in Serum or [facility] Plasma Alanine aminotransferase 30 U/L 13-61 [facility] [Enzymatic activity/volume] [facility] in Serum or Plasma Aspartate aminotransferase 27 U/L 15-37 [facility] - Good [Enzymatic activity/volume] [facility] in Serum or Plasma by With P-5'-P Alkaline phosphatase 139 U/L 45-117 Above high [facility] [Enzymatic activity/volume] normal [facility] in Serum or Plasma Protein [Mass/volume] in 7.6 g/dL 6.4-8.2 [facility] Serum or Plasma [facility] ital Albumin [Mass/volume] in 3.9 g/dL 3.5-4.7 [facility] Serum or Plasma by [facility] ospital Bromocresol purple (BCP) dye binding method Globulin [Mass/volume] in 3.7 g/dL 1.7-4.7 [facility] Serum by calculation [facility] Albumin/Globulin [Mass 1.0 0.7-2.8 [facility] Ratio] in Serum or Plasma [facility] ID Date Data Source [id number] 10/29/2019 11:20:29 AM EDT [facility] Name Value Range Interpretation Description Data Sup porting Code Source(s) Document(s ) aPTT in 22.2 SEC 21.0-28. [facility] Platelet poor 0 [facility] plasma by Hospital Coagulation assay Therapeutic Range = 42.0-60.0 secs ID Date Data Source [id number] 10/29/2019 11:20:29 AM EDT [facility] Name Value Range Interpretation Description Data Sup porting Code Source(s) Document(s ) Prothrombin 10.3 sec 9.4-11.1 [facility] time (PT) [facility] INR in 1.0 0.8-1.2 [facility] - [facility] Platelet poor [facility] plasma by Hospital Coagulation assay ID Date Data Source [id number] 10/29/2019 11:11:49 AM EDT [facility] Name Value Range Interpretation Description Data Sup porting Code Source(s) Document(s ) Leukocytes 8.1 K/uL 4.8-10.6 [facility] - [#/volume] in Good Blood by [facility] Automated count [facility] Erythrocytes 5.52 4.70-6.0 [facility] - [#/volume] in M/uL 0 Good Blood by [facility] Automated [facility] Hemoglobin 16.7 14.0-18. [facility] - [Mass/volume] in g/dL 0 Good Blood [facility] Hematocrit 51.8 % 42.0-52. [facility] - [Volume 0 Good Fraction] of [facility] Blood by Hospital Automated count Erythrocyte mean 93.8 FL 81.0-94. [facility] - corpuscular 0 Good volume [Entitic Yazidi volume] by Hospital Automated count Erythrocyte mean 30.3 PG 27.0-35. [facility] - corpuscular 0 Good hemoglobin [facility] [Entitic mass] Hospital by Automated count Erythrocyte mean 32.2 30.7-37. [facility] - corpuscular g/dL 3 Good hemoglobin Y[facility]idi concentration [facility] [Mass/volume] by Automated count Erythrocyte 13.2 % 11.5-14. [facility] - distribution 0 Good width [Ratio] by [facility] Automated count [facility] Platelets 193 K/uL 130-400 [facility] - [#/volume] in Good Blood by [facility] Platelet mean 8.6 FL 9.2-11.8 Below low normal [facility] - volume [Entitic Good volume] in Blood [facility] by Automated Hospital count Nucleated 0.0 PER 0 [facility] - erythrocytes/100 100 WBC Good leukocytes Y[facility]idi [Ratio] in Blood [facility] Nucleated 0.00 0.0-0.01 [facility] - erythrocytes K/uL Good [#/volume] in [facility] Segmented 79 % 48.0-72. Above high normal [facility] - neutrophils/100 0 Good leukocytes in [facility] Lymphocytes/100 10 % 18.0-40. Below low normal [facility] - leukocytes in 0 [facility] Monocytes/100 8 % 2.0-12.0 [facility] - leukocytes in [facility] Eosinophils/100 1 % 0.0-7.0 [facility] - leukocytes in [facility] Basophils/100 0 % 0.0-3.0 [facility] - leukocytes in [facility] Immature 1 % 0-0.5 Above high normal [facility] - granulocytes/100 Good leukocytes in [facility] Automated count Segmented 6.4 K/UL 2.3-7.6 [facility] - neutrophils Good [#/volume] in [facility] Lymphocytes 0.8 K/UL 0.9-4.2 Below low normal [facility] - [#/volume] in [facility] Monocytes 0.7 K/UL 0.1-1.7 [facility] - [#/volume] in [facility] Eosinophils 0.1 K/UL 0.0-1.0 [facility] - [#/volume] in [facility] Basophils 0.0 K/UL 0.0-0.4 [facility] - [#/volume] in [facility] Immature 0.1 K/UL 0.0-0.17 [facility] - granulocytes Good [#/volume] in [facility] Automated count Differential [facility] - cell count [facility] ID Date Data Source [id number] 09/15/2019 09:44:01 AM EDT [facility] Clinical Indications/Reason For Exam: pa in.AP, [...] Name Value Range Interpretation Code Description Data 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 Signing date/time: 09/15/2019 9:41 AMSigned by: CURTIS VARMA Name Value Range Interpretation Code Description [facility] ) ID Date Data Source [id number] 09/15/2019 09:40:53 AM EDT [facility] Clinical indications with reason for exa m: [...] Name Value Range Interpretation Code Description Data [facility] Supporting Document(s ) ID Date Data Source [id number] 08/17/2019 08:25:20 AM EST [facility] History: Chest PainTechnique: Portable c hest x-ray 08/16/2019 9:40 PMComparison: 08/11/2019. FINDINGS: There is linear ate lectasis in the left lung base.No focal infiltrate or effusion is identified. Ev aluation of the cardiac silhouette is limited by projection.The visualized osseous str uctures appear unremarkable.IMPRESSION: No focal infiltrate or effusion Signing marlon e/time: 08/17/2019 8:25 AMSigned by: RAMANDEEP SANTANA Name Value Range Interpretation Code Description Data Melani rce(s) Supporting Document(s ) ID Date Data Source [id number] 08/16/2019 11:12:22 PM [facility] The history is provided by [...] orbidity or mortality cardiac cath at [facility] approx 6-8 months ago Other unknown [...] e Gets together: Not on file Attends pentecostal service: Not on file 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 [...] Calculation (Bezet) 429 ms Ca lculated P [place] 36 degrees Calculated R [place] 77 degrees Calculated T [place] -24 degrees Diagnosis Sinus tachycardiaBorderline T abnormalities, [...] Time: 08/16/19 9:00 PMResult Value Ref Range [place] level 0.21 (L) 0.6 - 1.2 MMOL/LEKG: sinus tach ycardia, rate 109Radiology:CXR: no acute findings<EMERGENCY DEPARTMENT CASE [facility]>Impression/Differential Diagnosis: Allergic reaction allergic, drug reactio n,ACS, pulmonary embolismED Course: Patient presents short of breath and mildly tach ycardic complainingof new onset rash to face anterior chest and posterior chest.Plan: Labs, chest x-ray, EKG, troponin, d-dimer, prednisone, Pepcid, [id number]:04 PM patient verbalizes relief of symptoms rash has faded. He denies chestpain he denie s shortness of breath.Patient was advised that we cannot rule out allergic drug re action as he isrecently just restarted taking his lithium. Patient advised to discuss takinglithium with his psychiatrist as soon as possible.Patient reassessed at [facility] e by me. Feels better at present, wants to go home.Patient was told to follow up with the primary doctor in 1-2 days and return [facility] ED for any worsening severe pain, vomiting, [...] of disposition: patriciaI have reviewed the f [facility] medications:Prior to Admission medicationsMedication Sig Start [...] mg by mouth daily. 07/07/19 Yes Danilo Roloncyclobenzaprine (FLEXERIL) 10 mg tablet Take 1 Tab [...] 36N*ENCOUNTER 08/16/2019 10:46:05 PM EST [facility] [id number] [facility] [address] [place] [address] [phone]/ Maxwell Bray (Male) [id number] I 3 ED Dispo:DISCHARGE Chief Complaint: Allergic Reaction Diagnosis: Allergic reaction, initial encounter [] Allergic reaction to drug, in itial encounter [] Current Providers: Attending: Javier Quezada Nurse Practitioner: Javier Ward Primary Nurse: HARINDER AcuñaN: [id number] [employer] [id number] - [facility] MrnMRN: [id number] [employer] [phone] - [facility] Age Sex 1970 AGE 49 SEX Male Primary Care Provider: Ritika Canas MD Rvquddchu: (No Known Allergies)Date Reviewed: 08/16/2019Reviewed by: Zahraa Prince RN - Review CompleteED Provider Notes: No not es of this type exist for this encounter.ED Orders BUPROPION XL 300 MG 24 HR TAB [#[id number]] Priority: Routine Class: Historical Med LITHIUM CARBONATE 150 MG CAP [#[id number]] Priority: Routine Class: Historical Med FAMOTIDINE 20MG + NS 10 ML IV [#[id number]] Priority: STAT Class: Normal H2RA INDICATION -> Adverse reaction/Anaphylaxis SODIUM CH LORIDE 0.9 % IV [#[id number]] Priority: STAT Class: Normal METHYLPREDNISOLONE (PF) 125 MG/2 ML * [#[id number]] Priority: STAT Class: Normal ASPIRIN 81 MG CHEWABLE TAB [# [id number]] Priority: STAT Class: Normal PREDNISONE 50 MG TAB [#[id number]] Bridgette ority: Routine Class: Normal [id number] 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 - ED ONLY [#[id number]] Priority: STAT C lass: Hospital Performed Standing Order Information Remaining Occurrences:0/1 Interval:Contin uous Last released:08/16/2019 Released orders: Sat Aug 16, 2019 9:02 PM by: Javier POLLOCK Type: -> Bedside [id number] OBTAIN OLD EKG [#[id number]] Priority: Routi ne Class: Hospital Performed Standing Order Information Remaining Occurrences:0/1 Inter haile:ONE TIME Last released:08/16/2019 Released orders: Sat Aug 16, 2019 9:02 PM by: INDIO WARD [id number] PULSE OXIMETRY CONTINUOUS [#[id number]] Priority: STAT Class: H ospital Performed Standing Order Information Remaining Occurrences:0/1 Interval:CONTIN UOUS Last released:08/16/2019 Released orders: Sat Aug 16, 2019 9:02 PM by: Javier POLLOCK [id number] 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 - ED ONLY [#[id number]] Priority: STAT Class: Hospital Perfo rmed Type: -> Bedside Released on: 08/16/2019 9:02 PM [id number] OBTAIN OLD EKG [#[id number]] Priority: STAT Class: Hospital Performed Released on: 08/16/2019 9:02 PM [id number] PULSE OXIMETRY CONTINUOUS [#[id number]] Priority: STAT Class: Hospital Performed Relea sed on: 08/16/2019 9:02 PM [id number] DIET NPO [#[id number]] Priority: STAT Cla ss: Hospital Performed Standing Order Information Remaining Occurrences:0/1 Interval:DIET E FFECTIVE NOW Last released:08/16/2019 Released orders: [facility] Aug 16, 2019 9:02 PM by: INDIO WARD NPO options: -> With Meds [id number] DIET NPO [#[id number]] Priority: STAT Class: Hospital Performed NPO options: -> With Meds Released on: 08/16/2019 9:02 PM [id number] SALINE LOCK IV [#[id number]] Priority: STAT Class: Hospital Performe d Standing Order Information Remaining Occurrences:0/1 Interval:ONE TIME Last released: 08/16/2019 Released orders: [facility] Aug 16, 2019 9:02 PM by: INDIO POLLOCK [id number] SALIN E LOCK IV [#[id number]] Priority: STAT Class: Hospital Performed Released on : 08/16/2019 9:02 PM [id number] METABOLIC PANEL, COMPREHENSIVE [#[id number]] Priority: STAT Class: E R Collect Standing Order Information Remaining Occurrences:0/1 Interval:ONE TIME Last r eleased:08/16/2019 Released orders: [facility] Aug 16, 2019 9:02 PM by: INDIO POLLOCK [id number] CBC WITH AUTOMATED DIFF [#[id number]] Priority: STAT Class: ER Collect Standing Order Info rmation Remaining Occurrences:0/1 Interval:ONE TIME Last released:08/16/2019 Released orders: [facility] Aug 16, 2019 9:02 PM by: INDIO POLLOCK [id number] TROPONIN I [#[id number]] Priority: STAT Class: ER Collect Standing Order Information Remaining Occurre nces:0/1 Interval:ONE TIME Last released:08/16/2019 Released orders: [facility] Aug 16 9:02 PM by: INDIO POLLOCK [id number] MAGNESIUM [#[id number]] Priorit y: STAT Class: ER Collect Standing Order Information Remaining Occurrences:0/1 Inter haile:ONE TIME Last released:08/16/2019 Released orders: [facility] Aug 16, 2019 9:02 PM by: INDIO WARD [id number] D DIMER [#[id number]] Priority: STAT Class: E R Collect Standing Order Information Remaining Occurrences:0/1 Interval:ONE TIME Last r eleased:08/16/2019 Released orders: [facility] Aug 16, 2019 9:02 PM by: INDIO POLLOCK [id number] METABOLIC PANEL, COMPREHENSIVE [#[id number]] Priority: STAT Class: ER Collect Specimen Source: Plas ma Specimen Collected: 08/16/2019 9:00 PM Resulting Agency: [facility] Test ID: MPL Released on: 08/16/2019 9:02 PM [id number] CBC WITH AUTOMATED DIFF [#[id number]] Prior ity: STAT Class: ER Collect Specimen Source: Whole Blood Specimen Collected: 08/16/2019 9:00 PM Resultin g Agency: [facility] Test ID: [id number] Released on: 08/16/2019 9:02 PM [id number] TROPONIN I [#[id number]] Priority: STAT Class: ER Collect Specimen Source : Plasma Specimen Collected: 08/16/2019 9:00 PM Resulting Agency: [facility] Test ID: TROIP Released on: 08/16/2019 9:02 PM [id number] MAGNESIUM [#[id number]] Priority: STAT Class: ER Collect Specimen Source: Plasma Specimen Collected: 08/16/2019 9:00 PM Resultin g Agency: [facility] Test ID: MGPL Released on: 08/16/2019 9:02 PM [id number] D DIMER [#[id number]] Priority: STAT Class: ER Collect Specimen Source : Plasma Specimen Collected: 08/16/2019 9:00 PM Resulting Agency: [facility] Test ID: [id number] Released on: 08/16/2019 9:02 PM [id number] LITHIUM [#[id number]] Priority: STAT Class: ER Collect Standing Order Information Remaining Occurrences:0/1 Inter haile:ONE TIME Last released:08/16/2019 Released orders: Sat Aug 16, 2019 9:02 PM by: INDIO WARD [id number] LITHIUM [#[id number]] Priority: STAT Class: E R Collect Specimen Source: Serum Specimen Collected: 08/16/2019 9:00 PM Resulting Agency: [facility] Test ID: LI Released on: 08/16/2019 9:02 PM [id number] EKG, 12 LEAD, INITIAL [#[id number]] Priority: STAT Class: Hospital Performed Standing Order Information Remainin g Occurrences:0/1 Interval:ONE TIME Last released:08/16/2019 Released orders : Sat Aug 16, 2019 9:02 PM by: INDIO POLLOCK Reason for Exam: -> Chest Pain [id number] EKG, 12 LEAD, INITIAL [#[id number]] Priority: STAT Class: Hospital Performed Resulting Age ncy: GSH [facility] Test ID: [id number] Reason for Exam: -> Chest Pain Released on: 08/16/2019 9:02 PM [id number] XR CHEST PORT [#[id number]] Priority: STAT Class: Hospital Performed Stand ing Order Information Remaining Occurrences:0/1 Interval:ONE TIME Last released:0 08/16/2019 Released orders: Sat Aug 16, 2019 9:02 PM by: INDIO POLLOCK Reason for Exam -> Chest Pain [id number] XR CHEST PORT [#[id number]] Priority: STAT Class: H ospital Performed Resulting Agency: [facility] Test ID: [id number] Reason for Exam -> Chest Pain Rele ased on: 08/16/2019 9:02 CjMaxwell MR#: [id number] * Rm: [id number] Ht: 5' 10" Wt: 280 lb Code: Prior Iso:Diagnosis:Allergies: No Known Allergies -------- Current as of: 08/16/192245 GI=Given IC=IV Complet ed NB=New Bag --aspirin (ASPIRIN) tablet 325 mg #[id number] Admin Amount: 1 Tab (1 x 325 mg Tab) Ordered Dose: 325 mg Route: Oral Freq: ONCE Start Date: 12/24/13 No administration times (back 96 hours, ahead 96 hours). ------diphenhydrAMINE (BENADRYL) capsule 50 mg #[id number] Admin Amount: 1 Cap (1 x 50 mg Cap) Ordered Dose: 50 mg Route: Ora l Freq: NOW Start Date: 12/24/13 No administration times (back 96 hours, ahe ad 96 hours). ------diazepam (VALIUM) tablet 5 mg #[id number] Admin Amount: 1 Tab (1 x 5 mg Tab) Ordered Dose: 5 mg Route: Oral Freq: ON CE Start Date: 12/24/13 No administration times (back 96 hours, ahead 96 hours). ------lidocaine (XYLOCAINE) 10 mg/mL (1 %) injection 1-30 mL #[id number] Admin Amount: 1-30 mL Ordered Dose: 1-30 mL Route: IntraDERMal Freq: ONCE Start Date: 12/24/13 No administration times (back 96 hours, ahead 96 hours). ------heparin (PF) 2 units/ml in NS infusion 2,000 Units #[id number] Admin Amount: 1,000 mL = 2,000 Units of 2 Units/mL Ordered Dose: 1,000 mL [place]: Irrigation Freq: ONCE Start Date: 12/24/13 No administration times (back 96 hours, ahead 96 hours). ------heparinized saline 2 units/mL infusion 1,000 Units #[id number] Admin Amount: 500 mL = 1,000 Units of 2 Units/mL Ordered Dose: 500 mL [place]: IntraarTERial Freq: ONCE Start Date: 12/24/13 No administration times (back 96 hours, ahead 96 hours). ------0.9% sodium chloride infusion #[id number] Ordered Dose: 75 mL/hr Route: IntraVENous Freq: CONTINUOUS Start Date: 12/24/13 Rate: 75 mL/hr Duration: No administration times (back 96 hours, ahead 96 hours). ------ioversol (OPTIRAY) 320 mg iodine/mL contrast injection 1-100 mL #[id number] Admin Amount: 1-100 mL Ordered Dose: 1-100 mL Route: IntraVENous Freq: RAD O NCE Start Date: 12/24/13 No administration times (back 96 hours, ahead 96 hours).Maxwell Bray MR#: [id number] * Rm: [id number]: 5' 10" Wt: 280 lb Co de: Prior Iso:Diagnosis:Allergies: No Known Allergies -------- Current as of: 08/16/192245 GI=Given IC=IV Complet ed NB=New Bag --gadobutrol (GADAVIST) contrast solution 1-10 mL #[id number] Admin Amount: 1-10 mL Ordered Dose: 1-10 mL Route: IntraVENous Freq: RAD O NCE Start Date: 01/13/14 No administration times (back 96 hours, ahead 96 hours). ------sodium chloride (NS) flush 5-10 mL #[id number] Admin Amount: 5-10 mL Ordered Dose: 5-10 mL Route: IntraVENous Freq: RAD ONCE Start Date: 01/13/14 No administration times (back 96 hours, ahead 96 hours). ------sodium chloride (NS) 0.9 % flush #[id number] Ordered Dose: Route: Freq: Start Date: 01/13 No administration times (back 96 hours, ahead 96 hours). ------morphine injection 2 mg #[id number] Admin Amount: 1 mL = 2 mg of 2 mg/mL Ordered Dose: 2 mg Route: IntraVENous Freq: NOW Start Date: 03/13/15 No administration times (back 96 hours, ahe ad 96 hours). ------influenza vaccine (4 yr+)(PF) (FLUCELVAX QUAD) inj ection 0.5*#[id number] Admin Amount: 0.5 mL Ordered Dose: 0.5 mL Route: IntraMUSCular Freq: PRIOR TO DISCHARGE Start Date: 03/30/16 No administration times (back 96 hours, ahead 96 hours). ------oxyCODONE-acetaminophen (PERCOCET) 5-325 mg per tablet 1 Tab #[id number] Admin Amount: 1 Tab Ordered Dose: 1 Tab Route: Oral Freq: NOW Start Date: 09/07/17 No administration times (back 96 hours, ahead 96 hours). ------barium sulfate (READICAT) 2.1 % (w/v), 2.0 % (w /w) oral suspension 9*#[id number] Admin Amount: 900 mL Ordered Dose: 900 mL Route: Oral [place]gado q: RAD ONCE Start Date: 10/15/17 No administration times (back 96 hours, ahead 96 hours). ------iopamidol (ISOVUE 300) 61 % contrast injection 100 mL #[id number] Admin Amount: 100 mL Ordered Dose: 100 mL Route: IntraVENous Freq: RAD ONC E Start Date: 10/15/17 No administration times (back 96 hours, ahead 96 hours).Maxwell Bray MR#: [id number] * Rm: [id number]: 5' 10" Wt: 280 lb Code: Prior Iso:Diagnosis:Allergies: No Known Allergies -------- Current as of: 08/16/19 7456 GI=Given IC=IV Complet ed NB=New Bag --risperiDONE (RisperDAL m-tabs) disintegrating tablet 1 mg #[id number] Admin Amount: 1 Tab (1 x 1 mg Tab) Ordered Dose: 1 mg Route: Oral Freq: ONCE Start Date: 12/24/17 No administration times (back 96 hours, ahead 96 hours). ------ALPRAZolam (XANAX) tablet 2 mg #[id number] Admin Amount: 4 Tab (4 x 0.5 mg Tab) Ordered Dose: 2 mg Route: Ora l Freq: NOW Start Date: 12/24/17 No administration times (back 96 hours, ahe ad 96 hours). ------lamoTRIgine (LaMICtal) tablet 100 mg #[id number] Admin Amount: 1 Tab (1 x 100 mg Tab) Ordered Dose: 100 mg Route: Oral [place] q: ONCE Start Date: 12/24/17 No administration times (back 96 hours, ahead 96 hours). ------OLANZapine (ZyPREXA zydis) disintegrating tablet 5 mg #[id number] Admin Amount: 1 Tab (1 x 5 mg Tab) Ordered Dose: 5 mg Route: Oral [place] q: ONCE Start Date: 12/25/17 No administration times (back 96 hours, ahead 96 hours). ------LORazepam (ATIVAN) tablet 2 mg #[id number] Admin Amount: 4 Tab (4 x 0.5 mg Tab) Ordered Dose: 2 mg Route: Ora l Freq: NOW Start Date: 12/25/17 No administration times (back 96 hours, ahe ad 96 hours). ------LORazepam (ATIVAN) injection 1 mg #[id number] Admin Amount: 0.5 mL = 1 mg of 2 mg/mL Ordered Dose: 1 mg Route: Int raVENous Freq: NOW Start Date: 12/25/17 No administration times (back 96 hours, ahe ad 96 hours). ------barium sulfate (EZ PAQUE) 96 % (w/w) contrast suspension 17 6 g #[id number] Admin Amount: 176 g Ordered Dose: 176 g Route: Oral Freq: RAD ONCE Start Date: 08/02/18 No administration times (back 96 hours, ahead 96 hours). ------barium sulfate (EZ PAQUE) 96 % (w/w) contrast s uspension 176 g #[id number] Admin Amount: 176 g Ordered Dose: 176 g Route: Oral Delgado q: RAD ONCE Start Date: 08/02/18 No administration times (back 96 hours, ahead 96 hours).Luisito Maxwell donovan MR#: [id number] * Rm: [id number]: 5' 10" Wt: 280 lb Co de: Prior Iso:Diagnosis:Allergies: No Known Allergies -------- Current as of: 08/16/192245 GI=Given IC=IV Complet ed NB=New Bag --aspirin chewable tablet 162 mg #[id number] Admin Amount: 2 Tab (2 x 81 mg Tab) Ordered Dose: 162 mg Route: Oral Freq: NOW Start Date: 08/10/19 No administration times (back 96 hours, ahead 96 hours). ------famotidine (PF) (PEPCID) 20 mg in 0.9% sodium chloride 10 mL inje cti*#[id number] Admin Amount: 20 mg Ordered Dose: 20 mg Route: IntraVENous Freq: EVERY 12 H OURS Start Date: 08/16/19 Administration times (back 96 hours, ahead 96 hours): 08/16/19: 2119G I 08/17/19: 89908/18/19: 89908/19/19: 89908/20/19: 899 2099 ---0.9% sodium chloride infusion 1,000 mL #[id number] Admin Amount: 1,000 mL Ordered Dose: 1,000 mL Route: IntraVENous Freq: ONC E Start Date: 08/16/19 Rate: 1,000 mL/hr Duration: Administration times (back 96 hours, ahead 96 hours): 08/16/19: 9NB 2245IC -----methylPREDNISolone (PF) (Solu-MEDROL) injection 125 mg #[id number] Admin Amount: 2 mL = 125 mg of 125 mg/2 mL Ordered Dose: 125 mg Route: Int raVENous Freq: NOW Start Date: 08/16/19 Administration times (back 96 hours, ahe ad 96 hours): 08/16/19: 2119GI -----aspirin chewable tablet 162 mg #[id number] Admin Amount: 2 Tab (2 x 81 [...] mg by mouth three (3) times daily.Dispense [place] unt:Start Date:End Date:Doc. Provider: Paul Bradford MDpredniSONE [...] 2 daysComments:Contact Info:[address] [phone]-up With:[facility]ENCY DEPARTMENTDetails:Comments:As needed, If symptoms worsenContact Info:[address] [facility] celebration[facility] [place] [phone] Name Value Range Interpretation Code Description Data Melani rce(s) Supporting Document(s ) ID Date Data Source [id number] 08/16/2019 10:45:45 PM EST [facility] IV site clean/dry/intact, gauze dressing applied. Pt received written and verbaldischarge instructions. Verbalize d understanding of same. Ambulated out of EDwith steady gait and in no distress. Name Value Range Interpretation Code Description Data Melani rce(s) Supporting Document(s ) ID Date Data Source [id number] 08/16/2019 09:58:14 PM EST [facility] Name Value Range Interpretation Description Data Sup porting Code Source(s) Document(s ) [place] 0.21 0.6-1.2 Below low normal [facility] [Moles/volu MMOL/L [facility]] in Hospital Serum or Plasma ID Date Data Source [id number] 08/16/2019 09:52:19 PM EST [facility] Name Value Range Interpretation Code Description Data Melani rce(s) Supporting Document(s ) Fibrin <500 [facility] D-dimer [facility] [Mass/[facility]] [facility] in Platelet poor plasma (NOTE)Combination of a D-Dimer result wi thin the reference range and a lowclinical pretest probability has good negative pr edictive value fordeep venous thrombosis.If results are utilized for VTE evaluation, <500 ng/ml is consideredto be negative. ID Date Data Source [id number] 08/16/2019 09:44:39 PM EST [facility] Name Value Range Interpretation Description Data Sup porting Code Source(s) Document(s ) Troponin 0.00-0.05 [facility] I.cardiac [facility] [Mass/volume Hospital ] in Serum or Plasma [...] to 1.50 ng/mL ID Date Data Source [id number] 08/16/2019 09:44:39 PM EST [facility] Name Value Range Interpretation Description Data Sup porting Code Source(s) Document(s ) Sodium 138 136-145 [facility] [Moles/volume] mmol/L [facility] in Serum or Hospital Plasma Potassium 3.4 3.5-5.1 Below low normal [facility] [Moles/volume] mmol/L [facility] in Serum or Hospital Plasma Chloride 108 98-107 Above high normal [facility] [Moles/volume] mmol/L [facility] in Serum or Hospital Plasma Carbon 20 21-32 Below low normal [facility] dioxide, total mmol/L [facility] [Moles/volume] Hospital in Serum or Plasma Anion gap in 14 10-20 [facility] Serum or mmol/L [facility] Plasma Hospital Glucose 105 74-106 [facility] [Mass/volume] mg/dL [facility] in Serum or Hospital Plasma Urea nitrogen 20 mg/dL 7-18 Above high normal [facility] [Mass/volume] [facility] in Serum or Hospital Plasma Creatinine 0.90 0.70-1.3 [facility] [Mass/volume] mg/dL 0 [facility] in Serum or Hospital Plasma Glomerular >60 [facility] filtration [facility] rate/1.73 sq M Hospital predicted among blacks [Volume Rate/Area] in Serum or Plasma by Creatinine-bas ed formula (MDRD) Glomerular >60 [facility] filtration [facility] rate/1.73 sq M Hospital predicted among non-blacks [Volume Rate/Area] in Serum or Plasma by Creatinine-bas ed formula (MDRD) (NOTE)Estimated GFR is calculated using the Modification of Diet in RenalDisease (MDRD) Study equation, reported for both Americans(GFRAA) and non- Americans (GFRNA), and normalized to 1.7 0f0lpbh surface area. The physician must decide which [...] normal [facility] Serum or Plasma [facility] ital Bilirubin.total 0.3 mg/dL 0.2-1.0 [facility] [Mass/volume] in Serum or [facility] Plasma Alanine aminotransferase 37 U/L 13-61 [facility] [Enzymatic activity/volume] [facility] in Serum or Plasma Aspartate aminotransferase 22 U/L 15-37 [facility] - Good [Enzymatic activity/volume] [facility] in Serum or Plasma by With P-5'-P Alkaline phosphatase 98 U/L 45-117 [facility] G ood [Enzymatic activity/volume] [facility] in Serum or Plasma Protein [Mass/volume] in 7.0 g/dL 6.4-8.2 [facility] Serum or Plasma [facility] ital Albumin [Mass/volume] in 3.7 g/dL 3.5-4.7 [facility] Serum or Plasma by [facility] ospital Bromocresol purple (BCP) dye binding method Globulin [Mass/volume] in 3.3 g/dL 1.7-4.7 [facility] Serum by calculation [facility] Albumin/Globulin [Mass 1.1 0.7-2.8 [facility] Ratio] in Serum or Plasma [facility] ID Date Data Source [id number] 08/16/2019 09:44:39 PM EST [facility] Name Value Range Interpretation Description Data Sup porting Code Source(s) Document(s ) Magnesium 2.3 mg/dL 1.6-2.6 [facility] [Mass/volume] [facility] in Serum or Hospital Plasma ID Date Data Source [id number] 08/16/2019 09:23:23 PM EST [facility] Name Value Range Interpretation Description Data Sup porting Code Source(s) Document(s ) Leukocytes 7.6 K/uL 4.8-10.6 [facility] - [#/volume] in Good Blood by [facility] Automated count Hospital Erythrocytes 4.97 4.70-6.0 [facility] - [#/volume] in M/uL 0 Good Blood by [facility] Hemoglobin 15.2 14.0-18. [facility] - [Mass/volume] in g/dL 0 Good Blood [facility] Hematocrit 45.0 % 42.0-52. [facility] - [Volume 0 Good Fraction] of [facility] Blood by Hospital Automated count Erythrocyte mean 90.5 FL 81.0-94. [facility] - corpuscular 0 Good volume [Entitic [facility] volume] by Hospital Automated count Erythrocyte mean 30.6 PG 27.0-35. [facility] - corpuscular 0 Good hemoglobin [facility] [Entitic mass] [facility] by Automated count Erythrocyte mean 33.8 30.7-37. [facility] - corpuscular g/dL 3 Good hemoglobin [facility] [Mass/volume] by Automated count Erythrocyte 13.0 % 11.5-14. [facility] - distribution 0 Good width [Ratio] by [facility] count [facility] Platelets 183 K/uL 130-400 [facility] - [#/volume] in Good Blood by [facility] count [facility] Platelet mean 8.5 FL 9.2-11.8 Below low normal [facility] - volume [Entitic Good volume] in Blood [facility] by Automated Hospital count Nucleated 0.0 PER 0 [facility] - erythrocytes/100 100 WBC Good leukocytes [facility] [Ratio] in Blood [facility] Nucleated 0.00 0.0-0.01 [facility] - erythrocytes K/uL Good [#/volume] in [facility] Segmented 68 % 48.0-72. [facility] - neutrophils/100 0 Good leukocytes in [facility] Lymphocytes/100 19 % 18.0-40. [facility] - leukocytes in 0 [facility] Monocytes/100 7 % 2.0-12.0 [facility] - leukocytes in [facility] Eosinophils/100 5 % 0.0-7.0 [facility] - leukocytes in [facility] Basophils/100 1 % 0.0-3.0 [facility] - leukocytes in [facility] Immature 1 % 0-0.5 Above high normal [facility] - granulocytes/100 Good leukocytes in [facility] by [facility] Automated count Segmented 5.2 K/UL 2.3-7.6 [facility] - neutrophils Good [#/volume] in [facility] Lymphocytes 1.5 K/UL 0.9-4.2 [facility] - [#/volume] in [facility] Monocytes 0.6 K/UL 0.1-1.7 [facility] - [#/volume] in [facility] Eosinophils 0.3 K/UL 0.0-1.0 [facility] - [#/volume] in [facility] Basophils 0.0 K/UL 0.0-0.4 [facility] - [#/volume] in [facility] Immature 0.0 K/UL 0.0-0.17 [facility] - granulocytes Good [#/volume] in [facility] Automated count Differential [facility] - cell count [facility] method [facility] ID Date Data Source [id number] 08/16/2019 08:50:30 PM EST [facility] sudden onset of difficulty breathing and rash while eating lao food, rashacross face and chest slightly raised, no vesicles, denies any chest pain deniesany itching at this time. Went to urgent care, recei nataliia benadryl 50 mg IMfrom EMS. Name Value Range Interpretation Code Description Data Melani rce(s) Supporting Document(s ) ID Date Data Source [id number] 08/11/2019 08:03:02 AM EST [facility] History:Chest pain. Shortness of breath. FINDINGS:A single [...] Name Value Range Interpretation Code Description [facility] Document(s ) ID Date Data Source [id number] 08/11/2019 04:22:14 AM [facility] The history is provided by [...] morbidity or mortality cardiac cath at [facility] approx 6-8 months ag o Other [...] e Gets together: Not on file Attends pentecostal service: Not on file 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 [...] QTC Calculation (Bezet) 435 ms Calculated P [place] 55 degrees Calculated R [place] 34 degrees Calculated T [place] 9 degrees Diagnosis S inus tachycardiaOtherwise normal [...] Time: 08/11/19 12:01 AMResult Value Ref Range [place] level <0.20 (L) 0.6 - 1.2 MMOL/LLACTIC [...] 36N*ENCOUNTER 08/11/2019 01:42:54 AM EST [facility] [id number] [facility] [address] [facility] [address] [phone]/ [place] Maxwell mcleod (Male) [id number] JOSE 2 ED Dispo:DISCHARGE Chief Complaint: Chest Pain, Shortne ss of Breath Diagnosis: Dyspnea, unspecified type [] Current Providers: Atte nding: Javier Quezada Primary Nurse: ELIS WilsonN: [id number] Print Gr[employer] p [phone] - Bshsi [employer] Medva MrnMRN: [id number] Print Group [phone] - Bs hsi Ed Medva Age SexDOB 1970 AGE 49 SEX Male Primary Care Provider: Ritika Canas MD Phone: [phone]: (No Known Allergies)Date Reviewed: 08/10/2019Reviewed by: Chiquis Christianson [facility] Provider Notes: No notes of this type exist for this encounter.ED Orders [id number] E KG, 12 LEAD, INITIAL [#[id number]] Priority: STAT Class: Hospital Performed Stand ing Order Information Remaining Occurrences:0/1 Interval:ONE TIME Last released:0 08/10/2019 Released orders: [place] Aug 10, 2019 10:17 PM by: CHIQUIS CHRISTIANSON Reason for Exam: -> CP SOB [id number] EKG, 12 LEAD, INITIAL [#[id number]] Priority: STAT Class: Hospital Performed Specimen Collected: 08/10/2019 10:14 PM Resulting Agency: [facility] Test ID: [id number] Reason for Exam: -> CP SOB Released on: 08/10/2019 10:17 PM [id number] EKG, 12 LE AD, INITIAL [#[id number]] Priority: STAT Class: Hospital Performed Standing Or mariano Information Remaining Occurrences:0/1 Interval:ONE TIME Last released:0 08/10/2019 Released orders: [place] Aug 10, 2019 11:51 PM by: BORKER, MAYANK V Reason fo r Exam: -> Chest Pain [id number] EKG, 12 LEAD, INITIAL [#[id number]] Priority: STAT C lass: Hospital Performed Resulting Agency: [facility] Test ID: [id number] Reason for Exam: -> Chest P ain Released on: 08/10/2019 11:51 PM [id number] 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 - ED ONLY [#[id number]] Priority: STAT Class: Hospital Performed Standing Order Information Remaining Occurre nces:0/1 Interval:Continuous Last released:08/10/2019 Released orders : [place] Aug 10, 2019 11:51 PM by: MAYANK QUEZADA V Type: -> Bedside [id number] PULSE OXIMETR Y CONTINUOUS [#[id number]] Priority: STAT Class: Hospital Performed Standing Or mraiano Information Remaining Occurrences:0/1 Interval:CONTINUOUS Last released :08/10/2019 Released orders: [place] Aug 10, 2019 11:51 PM by: MAYANK QUEZADA V [id number] PULSE OXIMETRY SPOT CHECK [#[id number]] Priority: STAT Class: Hospital Performe d Standing Order Information Remaining Occurrences:0/1 Interval:ONE TIME Last r eleased:08/10/2019 Released orders: [place] Aug 10, 2019 11:51 PM by: MAYANK QUEZADA V NU [id number] OBTAIN OLD EKG [#[id number]] Priority: Routine Class: Hospital Perfo rmed Standing Order Information Remaining Occurrences:0/1 Interval:ONE TI ME Last released:08/10/2019 Released orders: [place] Aug 10, 2019 11:51 PM by: MAYANK QUEZADA V [id number] 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 - ED ONLY [#[id number]] Priority: STAT Class: H ospital Performed Type: -> Bedside Released on: 08/10/2019 11:51 PM [id number] PULSE OXIM ETRY CONTINUOUS [#[id number]] Priority: STAT Class: Hospital Performed Released on : 08/10/2019 11:51 PM [id number] PULSE OXIMETRY SPOT CHECK [#[id number]] Priority: STAT C lass: Hospital Performed Released on: 08/10/2019 11:51 PM [id number] OBTAIN OLD EKG [#[id number]] Priority: STAT Class: Hospital Performed Released on: 08/10/2019 11: 51 PM [id number] RT--OXYGEN CANNULA [#[id number]] Priority: STAT Class: H ospital Performed Standing Order Information Remaining Occurrences:0/1 Interval:CONTIN UOUS Last released:08/10/2019 Released orders: [place] Aug 10, 2019 11:51 PM by: MAYANK PRADO V Comment:TITRATE UP TO 4 L / MINUTE TO MAINTAIN O2 SATS GREATER THAN OR EQUAL TO 94% LPM -> 2 Indications for O2? -> CHEST PAIN [id number] RT--OXYGEN CANNULA [#[id number]] Priority: STAT Class: Hospital Performed Comment:TITRATE UP TO 4 L / MINUTE TO MAINTAIN O2 SATS GREATER THAN OR EQUAL TO 94% LPM -> 2 Indications fo r O2? -> CHEST PAIN Released on: 08/10/2019 11:51 PM [id number] DIET NPO [#[id number]] Priority: STAT Class: Hospital Performed Standing Order Information Remaining Occurrences:0/1 Interval:DIET EFFECTIVE NOW Last released:08/10 Released orders: [place] Aug 10, 2019 11:51 PM by: MAYANK QUEZADA V NPO options: - > With Meds [id number] DIET NPO [#[id number]] Priority: STAT Class: H ospital Performed NPO options: -> With Meds Released on: 08/10/2019 11:51 PM [id number] SALINE LOCK IV [#[id number]] Priority: STAT Class: Hospital Performed Standing O rder Information Remaining Occurrences:0/1 Interval:ONE TIME Last released:0 08/10/2019 Released orders: [place] Aug 10, 2019 11:51 PM by: MAYANK QUEZADA V [id number] SALI NE LOCK IV [#[id number]] Priority: STAT Class: Hospital Performed Relea sed on: 08/10/2019 11:51 PM [id number] METABOLIC PANEL, COMPREHENSIVE [#[id number]] Bridgette ority: STAT Class: ER Collect Standing Order Information Remaining Occurrences:0/1 In terval:ONE TIME Last released:08/10/2019 Released orders: [place] Aug 10, 2019 11:51 PM by: MAYANK QUEZADA V [id number] CBC WITH AUTOMATED DIFF [#[id number]] Priority: STAT Class: ER Collect Standing Order Information Remaining Occurrences:0/1 Inter haile:ONE TIME Last released:08/10/2019 Released orders: [place] Aug 10, 2019 11:51 PM by: MAYANK QUEZADA V [id number] TROPONIN I [#[id number]] Priority: STAT Class: ER Collect Standing Order Information Remaining Occurrences:0/1 Inter haile:ONE TIME Last released:08/10/2019 Released orders: [place] Aug 10, 2019 11:51 PM by: MAYANK QUEZADA V [id number] MAGNESIUM [#[id number]] Priority: STAT Class: ER Collect Standing Order Information Remaining Occurrences:0/1 Inter haile:ONE TIME Last released:08/10/2019 Released orders: [place] Aug 10, 2019 11:51 PM by: MAYANK QUEZADA V [id number] BNP [#[id number]] Priority: STAT Class: ER Collect Standing Order Information Remaining Occurrences:0/1 Inter haile:ONE TIME Last released:08/10/2019 Released orders: [place] Aug 10, 2019 11:51 PM by: MAYANK QUEZADA V [id number] D DIMER [#[id number]] Priority: STAT Class: ER Collect Standing Order Information Remaining Occurrences:0/1 Inter haile:ONE TIME Last released:08/10/2019 Released orders: [place] Aug 10, 2019 11:51 PM by: MAYANK QUEZADA V [id number] PROTHROMBIN TIME + INR [#[id number]] Priority: STAT Class: ER Collect Standing Order Information Remaining Occurrences:0/1 Inter haile:ONE TIME Last released:08/10/2019 Released orders: [place] Aug 10, 2019 11:51 PM by: MAYANK QUEZADA V [id number] PTT [#[id number]] Priority: STAT Class: ER Collect Specimen Source: Blood Standing Order Information Remaining Occurrences:0 /1 Interval:ONE TIME Last released:08/10/2019 Released orders: [place] Aug 10, 2019 11:51 PM by: MAYANK QUEZADA V [id number] LITHIUM [#[id number]] Pr iority: STAT Class: ER Collect Standing Order Information Remaining Occurrences:0/1 I nterval:ONE TIME Last released:08/10/2019 Released orders: [place] Aug 10, 2019 11:51 PM by: MAYANK QUEZADA V [id number] METABOLIC PANEL, COMPREHENSIVE [#[id number]] Bridgette ority: STAT Class: ER Collect Specimen Source: Plasma Specimen Collected: 08/11/2019 12:01 AM Resulting Agency: [facility] Test ID: MPL Released on: 08/10/2019 11:51 PM [id number] CBC WITH AUTOMATED DIFF [#[id number]] Priority: STAT Class: E R Collect Specimen Source: Whole Blood Specimen Collected: 08/11/2019 12:01 AM Resulting Agency: [facility] Test ID: CBCXA Released on: 08/10/2019 11:51 PM [id number] TROPON IN I [#[id number]] Priority: STAT Class: ER Collect Specimen Source: [place] sma Specimen Collected: 08/11/2019 12:01 AM Resulting Agency: [facility] Test ID: TROIP Released on: 08/10/2019 11:51 PM [id number] MAGNESIUM [#[id number]] Priority: STAT Class: ER Collect Specimen Source: Plasma Specimen Collec hyun: 08/11/2019 12:01 AM Resulting Agency: [facility] Test ID: MGPL Re leased on: 08/10/2019 11:51 PM [id number] BNP [#[id number]] Priority : STAT Class: ER Collect Specimen Source: Plasma Specimen Collected: 08/11/2019 12:01 AM Resultin g Agency: [facility] Test ID: BNPPB Released on: 08/10/2019 11:51 PM [id number] D DIMER [#[id number]] Priority: STAT Class: ER Collect Speci men Source: Plasma Specimen Collected: 08/11/2019 12:01 AM Resulting Agency: [facility] Test ID: DDIME Released on: 08/10/2019 11:51 PM [id number] PROTHROMBIN TIME + INR [#[id number]] Priority: STAT Class: ER Collect Specimen Source: Plasma Specimen Collec hyun: 08/11/2019 12:01 AM Resulting Agency: [facility] Test ID: APTHR R eleased on: 08/10/2019 11:51 PM [id number] PTT [#[id number]] Priorit y: STAT Class: ER Collect Specimen Source: Plasma Specimen Collected: 08/11/2019 12:01 AM Resultin g Agency: [facility] Test ID: APTT Released on: 08/10/2019 11:51 PM [id number] LITHIUM [#[id number]] Priority: STAT Class: ER Collect Speci men Source: Serum Specimen Collected: 08/11/2019 12:01 AM Resulting Agency: [facility] Test ID: LI Released on: 08/10/2019 11:51 PM [id number] LACTIC ACID [#[id number]] Priority: STAT Class: ER Collect Standing Order Information Remainin g Occurrences:0/1 Interval:ONE TIME Last released:08/11/2019 Released orders : SunAug 11, 2019 12:15 AM by: KATI WILSON [id number] LACTIC ACID [#[id number]] Priority: STAT Class: ER Collect Specimen Source: Plasma Specimen Collec hyun: 08/11/2019 12:01 AM Resulting Agency: [facility] Test ID: LAC Rel eased on: 08/11/2019 12:15 AM ASPIRIN 81 MG CHEWABLE TAB [#[id number]] Priority: STAT Class: Normal [id number] XR CHEST PORT [#[id number]] Priority: STAT Cl ass: Hospital Performed Standing Order Information Remaining Occurrences:0/1 Inter haile:ONE TIME Last released:08/10/2019 Released orders: Sun Aug 10, 2019 11:51 PM by: MAYANK QUEZADA V Reason for Exam -> Chest Pain [id number] XR CHEST PORT [#[id number]] Priority: STAT Class: Hospital Performed Resulting Agency: [facility] Test ID: [id number] Reason for Exam -> Chest Pain Released on: 08/10/2019 11:51 PM [id number] INFLUENZA A & B AG (RAPID TEST) [#[id number]] Priority: STAT Class: ER Collect Sta nding Order Information Remaining Occurrences:0/1 Interval:ONE TIME Last released: 08/10/2019 Released orders: Sun Aug 10, 2019 11:51 PM by: MAYANK QUEZADA V [id number] INFL UENZA A & B AG (RAPID TEST) [#[id number]] Priority: STAT Class: ER Collect Specimen Source : Nasal washing Specimen Collected: 08/11/2019 12:18 AM Resulting Agency: [facility] Test ID: INFLUA Released on: 08/10/2019 11:51 PM [id number] CULTURE, BLOOD [#[id number]] Priority: STAT Class: ER Collect Specimen Source: Blood Standing Order Information Remaining Occurrences:0/1 Interval:ONE TIME Last released:0 08/11/2019 Released orders: SunAug 11, 2019 12:15 AM by: KATI WILSON [id number] CULTU RE, BLOOD [#[id number]] Priority: STAT Class: ER Collect Specimen Source : Blood Standing Order Information Remaining Occurrences:0/1 Interval:ONE TI ME Last released:08/11/2019 Released orders: Mon Aug 11, 2019 12:15 AM by: KATI WILSON [id number] CULTURE, BLOOD [#[id number]] Priority: STAT Class: E R Collect Specimen Source: Blood Specimen Collected: 08/11/2019 12:33 AM Resulting Agency: [facility] Test ID: HBCS Released on: 08/11/2019 12:15 AM [id number] CULTUR E, BLOOD [#[id number]] Priority: STAT Class: ER Collect Specimen Source: Blo od Specimen Collected: 08/11/2019 12:43 AM Resulting Agency: [facility] Test ID: HBCS Released on: 08/11/2019 12:15 AMMaxwell Bray MR#: [id number] Acct#: [id number]* Rm: EE62-31Hg: 5' 10" Wt: 280 lb Code: Prior Iso:Diagnosis:Allergies: No Kno wn Allergies -------- Current as of: 08/11/192 GI=Given -------aspirin (ASPIRIN) tablet 325 mg #[id number] Admin Amount: 1 Tab (1 x 325 mg Tab) Ordered Dose: 325 mg Route: Oral Freq: ONCE Start Date: 12/24/13 No administration times (b ack 96 hours, ahead 96 hours). ------diphenhydrAMINE (BENADRYL) capsule 50 mg #[id number] Admin Amount: 1 Cap (1 x 50 mg Cap) Ordered Dose: 50 mg [place]: Oral Freq: NOW Start Date: 12/24/13 No administration times (back 96 hours, ahead 96 hours). ------diazepam (VALIUM) tablet 5 mg #[id number] Admin Amount: 1 Tab (1 x 5 mg Tab) Ordered Dose: 5 mg Route: Oral Freq: ONCE Start Date: 12/24/13 No administration times (back 96 hours, ahead 96 hours). ------lidocaine (XYLOCAINE) 10 mg/mL (1 %) injection 1-3 0 mL #[id number] Admin Amount: 1-30 mL Ordered Dose: 1-30 mL Route: Int raDERMal Freq: ONCE Start Date: 12/24/13 No administration times (back 96 hours, ahead 96 hours). ------heparin (PF) 2 units/ml in NS infusion 2,000 Units #[id number] Admin Amount: 1,000 mL = 2,000 Units of 2 Units/mL Ordered Dose: 1,000 mL Route: Irrigation Freq: ONCE Start Date: 12/24/13 No administration times (back 96 hours, ahead 96 hours). ------heparinized saline 2 units/mL infusion 1,000 Units #[id number] Admin Amount: 500 mL = 1,000 Units of 2 Units/mL Ordered Dose: 500 m L Route: IntraarTERial Freq: ONCE Start Date: 12/24/13 No admini stration times (back 96 hours, ahead 96 hours). ------0.9% sodium chloride infusion #[id number] Ordered Dose: 75 mL/hr Route: IntraVENous Freq: CONTINUOUS Start Date: 12/24/13 Rate: 75 mL/hr Duration: No administration ti mes (back 96 hours, ahead 96 hours). ------ioversol (OPTIRAY) 320 mg iodine/mL contrast inje ction 1-100 mL #[id number] Admin Amount: 1-100 mL Ordered Dose: 1-100 mL [place]: IntraVENous Freq: RAD ONCE Start Date: 12/24/13 No administration times (back 96 hours, ahead 96 hours).Maxwell Bray MR#: [id number] * Rm: ER10-10 Ht: 5' 10" Wt: 280 lb Code: Prior Iso:Diagnosis:Allergies: No Known Allergies -------- Current as of: 08/11/19141 GI=Given -------gadobutrol (GADAVIST) contrast solution 1-10 mL #[id number] Admin Amount: 1-10 mL Ordered Dose: 1-10 mL Route: Int raVENous Freq: RAD ONCE Start Date: 01/13/14 No administration times (back 96 hours, ahead 96 hours). ------sodium chloride (NS) flush 5-10 mL #[id number] Admin Amount: 5-10 mL Ordered Dose: 5-10 mL Route: IntraVENo us Freq: RAD ONCE Start Date: 01/13/14 No administration times (back 96 hours, ahe ad 96 hours). ------sodium chloride (NS) 0.9 % flush #[id number] Ordered Dose: Route: Freq: Start Date: 01/13/14 No administration times (back 96 hours, ahead 96 hours). ------morphine injection 2 mg #[id number] Admin Amount: 1 mL = 2 mg of 2 mg/mL Ordered Dose: 2 mg Route: IntraVENous Freq: NOW Start Date: 03/13/15 No administration t imes (back 96 hours, ahead 96 hours). ------influenza vaccine (4 yr+)(PF) (FLUCELVAX Q UAD) injection 0.5*#[id number] Admin Amount: 0.5 mL Ordered Dose: 0.5 mL Route: Int raMUSCular Freq: PRIOR TO DISCHARGE Start Date: 03/30/16 No administration times (back 9 6 hours, ahead 96 hours). ------oxyCODONE-acetam inophen (PERCOCET) 5-325 mg per tablet 1 Tab #[id number] Admin Amount: 1 Tab Ordered Dose: 1 Tab Route: Oral Freq: NOW Start Date: 09/07/17 No administration times (back 96 hours, ahe ad 96 hours). ------barium sulfate (READICAT) 2.1 % (w/v), 2.0 % (w/w) oral suspension 9*#[id number] Admin Amount: 900 mL Ordered Dose: 900 mL Route: Oral [place] q: RAD ONCE Start Date: 10/15/17 No administration times (back 96 hours, ahe ad 96 hours). ------iopamidol (ISOVUE 300) 61 % contrast injection 100 mL #[id number] Admin Amount: 100 mL Ordered Dose: 100 mL Route: Int raVENous Freq: RAD ONCE Start Date: 10/15/17 No administration times (back 96 hours, ahead 96 hours).Maxwell Bray MR#: [id number] * Rm: CO48-24Rz: 5' 1 0" Wt: 280 lb Code: Prior Iso:Diagnosis:Allergies: No Known Allergies -------- Current as of: 08/11/19 0142 GI=Given -------risperiDONE (RisperDAL m-tabs) disintegrating tablet 1 mg #[id number] Admin Amount: 1 Tab (1 x 1 mg Tab) Ordered Dose: 1 mg Route: Oral Freq: ONCE Start Date: 12/24/17 No administration times (back 96 hours, ahead 96 hours). ------ALPRAZolam (XANAX) tablet 2 mg #[id number] Admin Amount: 4 Tab (4 x 0.5 mg Tab) Ordered Dose: 2 mg Route: Oral Freq: NOW Start Date: 12/24/17 No administration times (back 96 hours, ahead 96 hours). ------lamoTRIgine (LaMICtal) tablet 100 mg #[id number] Admin Amount: 1 Tab (1 x 100 mg Tab) Ordered Dose: 100 mg Route: Oral Freq: ONCE Start Date: 12/24/17 No administration times (back 96 hours, ahead 96 hours). ------OLANZapine (ZyPREXA zydis) disintegrating tablet 5 mg #[id number] Admin Amount: 1 Tab (1 x 5 mg Tab) Ordered Dose: 5 mg Route: Oral Freq: ONCE Start Date: 12/25/17 No administration times (back 96 hours, ahead 96 hours). ------LORazepam (ATIVAN) tablet 2 mg #[id number] Admin Amount: 4 Tab (4 x 0.5 mg Tab) Ordered Dose: 2 mg Route: Oral Freq: NOW Start Date: 12/25/17 No administration times (back 96 hours, ahead 96 hours). ------LORazepam (ATIVAN) injection 1 mg #[id number] Admin Amount: 0.5 mL = 1 mg of 2 mg/mL Ordered Dose: 1 mg Route: IntraVENous Freq: NOW Start Date: 12/25/17 No administration ti mes (back 96 hours, ahead 96 hours). ------barium sulfate (EZ PAQUE) 96 % (w/w) contrast suspensio n 176 g #[id number] Admin Amount: 176 g Ordered Dose: 176 g Route: Oral [place] q: RAD ONCE Start Date: 08/02/18 No administration times (back 96 hours, ahe ad 96 hours). ------barium sulfate (EZ PAQUE) 96 % (w/w) contrast suspensio n 176 g #[id number] Admin Amount: 176 g Ordered Dose: 176 g Route: Oral [place] q: RAD ONCE Start Date: 08/02/18 No administration times (back 96 hours, ahe ad 96 hours).Maxwell Bray MR#: [id number] * Rm: PJ10-34Dv: 5' 10" Wt: 280 lb Code: Prior Iso:Diagnosis:Allergies: No Known Allergies -------- Current as of: 08/11/19 0142 GI=Given -------aspirin chewable tablet 162 mg #[id number] Admin Amount: 2 Tab (2 x 81 [...] in 1 dayComments:Contact Info:[address] [phone]-hg With:Detail s:Comments:As needed, If symptoms worsenContact Info: Name Value Range Interpretation Code Description Data Melani rce(s) Supporting Document(s ) ID Date Data Source [id number] 08/11/2019 01:40:37 AM EST [facility] I have reviewed discharge instructions w ith the patient and spouse. The patientand spouse verbalized understanding.\\ Name Value Range Interpretation Code Description Data Melani rce(s) Supporting Document(s ) ID Date Data Source [id number] 08/16/2019 06:35:29 AM EST [facility] Name Value Range Interpretation Description Data Sup porting Code Source(s) Document(s ) Service comment [facility] Bacteria [facility] - Good identified in [facility] specimen by Culture ID Date Data Source [id number] 08/16/2019 06:35:28 AM EST [facility] Name Value Range Interpretation Description Data Sup porting Code Source(s) Document(s ) Service comment [facility] Bacteria [facility] - Good identified in [facility] specimen by Culture ID Date Data Source [id number] 08/11/2019 12:56:01 AM EST [facility] Name Value Range Interpretation Description Data Sup porting Code Source(s) Document(s ) Influenza virus NEG [facility] A Ag [Presence] [facility] in [facility] by Immunoassay Influenza virus NEG [facility] - Good B Ag [Presence] [facility] in [facility] by Immunoassay IMMUNOCHROMATOGRAPHIC MEMBRANE ASSAYResu lt: Negative for Influenza A and BNote: A negative result does not exclude an infl uenza virus infection, including H1N1. If more conclusive testing is desired, foll ow-up confirmatory testing is warranted. Specimen source [Identifier] of Unspecified [facility] specimen ID Date Data Source [id number] 08/11/2019 01:35:58 AM EST [facility] Name Value Range Interpretation Description Data Sup porting Code Source(s) Document(s ) Prothrombin 9.6 sec 9.4-11.1 [facility] - Good time (PT) [facility] INR in 0.9 0.8-1.2 [facility] - Good Platelet poor [facility] plasma by Hospital Coagulation assay ID Date Data Source [id number] 08/11/2019 01:35:58 AM EST [facility] Value Range Interpretation Description Data Sup porting Code Source(s) Document(s ) aPTT in 23.1 SEC 21.0-28. [facility] - Good Platelet poor 0 [facility] plasma by Hospital Coagulation assay Therapeutic Range = 42.0-60.0 secs ID Date Data Source [id number] 08/11/2019 01:30:36 AM EST [facility] Value Range Interpretation Description Data Sup porting Code Source(s) Document(s ) Natriuretic 19 pg/mL 0-100 [facility] - Good peptide B [facility] [Mass/volume] Hospital in Serum or Plasma ID Date Data Source [id number] 08/11/2019 01:25:10 AM EST [facility] Name Value Range Interpretation Code Description Data Supporting Source(s) Document(s ) [place] 0.6-1.2 Below low normal [facility] - Good [Moles/volum [facility]idi e] in Serum Hospital or Plasma ID Date Data Source [id number] 08/11/2019 01:20:56 AM [facility] Interpretation Code Description Data Melani rce(s) Supporting Document(s ) Fibrin <500 [facility] - Good D-dimer FEU [facility] [Mass/volume] [facility] in Platelet poor plasma (NOTE)Combination of a D-Dimer result wi thin the reference range and a lowclinical pretest probability has good negative pr edictive value fordeep venous thrombosis.If results are utilized for VTE evaluation, <500 ng/ml is consideredto be negative. ID Date Data Source [id number] 08/11/2019 01:09:42 AM [facility] Name Value Range Interpretation Description Data Sup porting Code Source(s) Document(s ) Lactate 1.7 0.4-2.0 [facility] - Good [Moles/volu MMOL/L [facility]] in Hospital Serum or Plasma ID Date Data Source [id number] 08/11/2019 01:09:42 AM [facility] Interpretation Description Data Sup porting Code Source(s) Document(s ) Troponin 0.00-0.05 [facility] - Good I.cardiac [facility] [[facility]/volume [facility] ] in Serum or Plasma (NOTE)The [...] to 1.50 ng/mL ID Date Data Source [id number] 08/11/2019 01:09:42 AM EST [facility] Value Range Interpretation Description Data Sup porting Code Source(s) Document(s ) Sodium 140 136-145 [facility] - Good [Moles/volume] mmol/L [facility] in Serum or Hospital Plasma Potassium 3.9 3.5-5.1 [facility] - Good [Moles/volume] mmol/L [facility] in Serum or Hospital Plasma Chloride 113 98-107 Above high normal [facility] - Good [Moles/volume] mmol/L [facility] in Serum or Hospital Plasma Carbon 21 21-32 [facility] - Good dioxide, total mmol/L [facility] [Moles/volume] Hospital in Serum or Plasma Anion gap in 10 10-20 [facility] - Good Serum or mmol/L [facility] Plasma Hospital Glucose 90 mg/dL 74-106 [facility] - Good [Mass/volume] [facility] in Serum or Hospital Plasma Urea nitrogen 18 mg/dL 7-18 [facility] - Good [Mass/volume] [facility] in Serum or Hospital Plasma Creatinine 0.78 0.70-1.3 [facility] - Good [Mass/volume] mg/dL 0 [facility] in Serum or Hospital Plasma Glomerular >60 [facility] - Good filtration [facility] rate/1.73 sq M Hospital predicted among blacks [Volume Rate/Area] in Serum or Plasma by Creatinine-bas ed formula (MDRD) Glomerular >60 [facility] - Good filtration [facility] rate/1.73 sq M Hospital predicted among non-blacks [Volume Rate/Area] in Serum or Plasma by Creatinine-bas ed formula (MDRD) (NOTE)Estimated GFR is calculated using the Modification of Diet in RenalDisease (MDRD) Study equation, reported for both Americans(GFRAA) and non- Americans (GFRNA), and normalized to 1.7 7u2gyrh surface area. The physician must decide which [...] normal [facility] - Good Serum or Plasma [facility] ital Bilirubin.total 0.5 mg/dL 0.2-1.0 [facility] - Good [Mass/volume] in Serum or [facility] Plasma Alanine aminotransferase 29 U/L 13-61 [facility] - Good [Enzymatic activity/volume] [facility] in Serum or Plasma Aspartate aminotransferase 18 U/L 15-37 [facility] - Good [Enzymatic activity/volume] [facility] in Serum or Plasma by With P-5'-P Alkaline phosphatase 98 U/L 45-117 [facility] - G ood [Enzymatic activity/volume] [facility] in Serum or Plasma Protein [Mass/volume] in 6.7 g/dL 6.4-8.2 [facility] - Good Serum or Plasma [facility] ital Albumin [Mass/volume] in 3.4 g/dL 3.5-4.7 Below low normal [facility] - Good Serum or Plasma by [facility] ospital Bromocresol purple (BCP) dye binding method Globulin [Mass/volume] in 3.3 g/dL 1.7-4.7 [facility] - Good Serum by calculation [facility] Albumin/Globulin [Mass 1.1 0.7-2.8 [facility] - Good Ratio] in Serum or Plasma [facility] ID Date Data Source [id number] 08/11/2019 01:09:42 AM EST [facility] Name Value Range Interpretation Description Data Sup porting Code Source(s) Document(s ) Magnesium 2.1 mg/dL 1.6-2.6 [facility] - Good [Mass/volume] [facility] in Serum or [facility] Plasma ID Date Data Source [id number] 08/11/2019 01:01:18 AM EST [facility] Name Value Range Interpretation Description Data Sup porting Code Source(s) Document(s ) Leukocytes 7.7 K/uL 4.8-10.6 [facility] - [#/volume] in Good Blood by [facility] Erythrocytes 4.93 4.70-6.0 [facility] - [#/volume] in M/uL 0 Good Blood by [facility] Hemoglobin 14.9 14.0-18. [facility] - [Mass/volume] in g/dL 0 Good Blood [facility] Hematocrit 44.4 % 42.0-52. [facility] - [Volume 0 Good Fraction] of [facility] Blood by Hospital Automated count Erythrocyte mean 90.1 FL 81.0-94. [facility] - corpuscular 0 Good volume [Entitic [facility] volume] by Hospital Automated count Erythrocyte mean 30.2 PG 27.0-35. [facility] - corpuscular 0 Good hemoglobin [facility] [Entitic mass] Hospital by Automated count Erythrocyte mean 33.6 30.7-37. [facility] - corpuscular g/dL 3 Good hemoglobin [facility] Hospital [Mass/volume] by Automated count Erythrocyte 12.5 % 11.5-14. [facility] - distribution 0 Good width [Ratio] by [facility] Automated count Hospital Platelets 189 K/uL 130-400 [facility] - [#/volume] in Good Blood by [facility] Automated count Hospital Platelet mean 9.0 FL 9.2-11.8 Below low normal [facility] - volume [Entitic Good volume] in Blood [facility] by Automated Hospital count Nucleated 0.0 PER 0 [facility] - erythrocytes/100 100 WBC Good leukocytes [facility] [Ratio] in Blood [facility] Nucleated 0.00 0.0-0.01 [facility] - erythrocytes K/uL Good [#/volume] in [facility] Segmented 59 % 48.0-72. [facility] - neutrophils/100 0 Good leukocytes in [facility] Lymphocytes/100 29 % 18.0-40. [facility] - leukocytes in [facility] Blood [facility] Monocytes/100 7 % 2.0-12.0 [facility] - leukocytes in [facility] Blood [facility] Eosinophils/100 5 % 0.0-7.0 [facility] - leukocytes in [facility] Basophils/100 1 % 0.0-3.0 [facility] - leukocytes in [facility] Immature 0 % 0-0.5 [facility] - granulocytes/100 Good leukocytes in [facility] Automated count Segmented 4.6 K/UL 2.3-7.6 [facility] - neutrophils Good [#/volume] in [facility] Lymphocytes 2.2 K/UL 0.9-4.2 [facility] - [#/volume] in [facility] Monocytes 0.5 K/UL 0.1-1.7 [facility] - [#/volume] in [facility] Eosinophils 0.4 K/UL 0.0-1.0 [facility] - [#/volume] in [facility] Basophils 0.1 K/UL 0.0-0.4 [facility] - [#/volume] in [facility] Immature 0.0 K/UL 0.0-0.17 [facility] - granulocytes Good [#/volume] in [facility] Blood by Hospital Automated count Differential [facility] - cell count Good method - Blood [facility] Procedure Social History Code Duration Value Status Description Data Source(s ) Alcohol intake 01/08/2020 Current completed Current [place] 12:00:00 AM EDT non-drinker non-drinker of [employer] alcohol (finding) [employer] (finding) Tobacco use and 01/08/2020 Never used completed Never used [place] exposure 12:00:00 AM EDT [employer] Smoking 01/08/2020 Never smoker completed Never smoker [place] 12:00:00 AM EDT [employer] Alcohol intake 12/25/2019 Current completed Current [place] 12:00:00 AM EDT non-drinker non-drinker of [employer] alcohol (finding) [employer] (finding) Tobacco use and 12/25/2019 Never used completed Never used [facility] exposure 12:00:00 AM EDT [employer] Smoking 12/25/2019 Never smoker completed Never smoker [place] 12:00:00 AM EDT [employer] Alcohol intake 12/12/2019 Current completed Current [place] 12:00:00 AM EDT non-drinker non-drinker of [facility] alcohol (finding) [employer] (finding) Smoking 12/12/2019 Never smoker completed Never smoker [place] 12:00:00 AM EDT [employer] Alcohol intake 12/05/2019 Current completed Current [place] 12:00:00 AM EDT non-drinker non-drinker of [facility] alcohol (finding) [employer] (finding) Tobacco use and 12/05/2019 Never used completed Never used [facility] exposure 12:00:00 AM EDT [employer] Smoking 12/05/2019 Never smoker completed Never smoker [place] 12:00:00 AM EDT [employer] Alcohol intake 12/01/2019 Current completed Current [place] 12:00:00 AM EDT non-drinker non-drinker of [facility] of alcohol alcohol (finding) [facility] [employer] (finding) Smoking 12/01/2019 Never smoker completed Never smoker [place] 12:00:00 AM EDT [employer] Alcohol intake 11/14/2019 Current completed Current [place] 12:00:00 AM EDT non-drinker non-drinker of [facility] of alcohol alcohol (finding) [employer] (finding) Smoking 11/14/2019 Never smoker completed Never smoker [place] 12:00:00 AM EDT [employer] Alcohol intake 11/10/2019 Current completed Current [place] 12:00:00 AM EDT non-drinker non-drinker of [facility] of alcohol alcohol (finding) [employer] (finding) Smoking 11/10/2019 Never smoker completed Never smoker [place] 12:00:00 AM EDT [employer] Alcohol intake 09/06/2019 Current completed Current [place] 12:00:00 AM EDT non-drinker non-drinker of [facility] of alcohol alcohol (finding) [employer] (finding) Smoking 09/06/2019 Never smoker completed Never smoker [place] 12:00:00 AM EDT [employer] Alcohol intake 08/16/2019 Current completed Current [place] 12:00:00 AM EST non-drinker non-drinker of [facility] of alcohol alcohol (finding) [employer] (finding) Smoking 08/16/2019 Never smoker completed Never smoker [place] 12:00:00 AM EST [employer] Alcohol intake 08/10/2019 Current completed Current [place] 12:00:00 AM EST non-drinker non-drinker of [facility] of alcohol alcohol (finding) [employer] (finding) Smoking 08/10/2019 Never smoker completed Never smoker [place] 12:00:00 AM EST [employer] Alcohol intake 07/21/2019 Current completed Current [place] 12:00:00 AM EST non-drinker non-drinker of [facility] of alcohol alcohol (finding) [employer] (finding) Smoking 07/21/2019 Never smoker completed Never smoker [place] 12:00:00 AM EST [employer] Smoking 07/29/2018 Never smoker completed Never smoker [place] 12:00:00 AM EST [employer] Smoking 07/19/2018 Never smoker completed Never smoker [place] 12:00:00 AM EST [employer] Smoking 07/11/2018 Never smoker completed Never smoker [place] 12:00:00 AM EST [employer] Vital Signs ID Date Data Source UNK Name Value Range Interpretation Code Description Data Source(s) Oxygen saturation 98 % 98 % [facility] in Arterial blood [employer] by Pulse oximetry [employer] Body mass index 48.95 kg/m2 48.95 kg/m2 [employer] [facility] ours (BMI) [Ratio] [employer] Body weight 136.533 kg 136.533 kg [employer] Body height 167 cm 167 cm [employer] Respiratory rate 12 /min 12 /min [facility] [employer] Body temperature 36.56 May 36.56 May [facility] [employer] Heart rate 102 /min 102 /min [email or web address] System Inc Diastolic blood 60 mm[Hg] 60 mm[Hg] [facility] pressure [employer] Systolic blood 100 mm[Hg] 100 mm[Hg] [place] pressure [employer] Diastolic blood 80 mm[Hg] 80 mm[Hg] [facility] pressure [employer] Systolic blood 122 mm[Hg] 122 mm[Hg] [place] pressure [employer] Respiratory rate 20 /min 20 /min [facility] [employer] Heart rate 70 /min 70 /min [employer] Diastolic blood 70 mm[Hg] 70 mm[Hg] [facility] pressure [employer] Systolic blood 124 mm[Hg] 124 mm[Hg] [place] pressure [employer] Respiratory rate 18 /min 18 /min [facility] [employer] Body temperature 36.56 May 36.56 May [facility] [employer] Heart rate 88 /min 88 /min [employer] Diastolic blood 86 mm[Hg] 86 mm[Hg] [facility] pressure [employer] Systolic blood 110 mm[Hg] 110 mm[Hg] [place] pressure [employer] Oxygen saturation 98 % 98 % [facility] in Arterial blood [employer] by Pulse oximetry [employer] Body mass index 47.98 kg/m2 47.98 kg/m2 [facility] ours (BMI) [Ratio] [facility] Body weight 133.811 kg 133.811 kg Bon [employer] Inc Body height 167 cm 167 cm [facility] [employer] Respiratory rate 12 /min 12 /min [facility] urs [employer] Body temperature 36.67 May 36.67 May [facility] [employer] Heart rate 100 /min 100 /min [facility] [employer] Diastolic blood 66 mm[Hg] 66 mm[Hg] [facility] pressure [employer] Systolic blood 102 mm[Hg] 102 mm[Hg] [place] pressure [employer] Respiratory rate 20 /min 20 /min [facility] urs [employer] Heart rate 70 /min 70 /min Bon SecUNX Inc Diastolic blood 68 mm[Hg] 68 mm[Hg] [facility] pressure [employer] Systolic blood 120 mm[Hg] 120 mm[Hg] [place] pressure [employer] Respiratory rate 18 /min 18 /min [facility] [employer] Heart rate 68 /min 68 /min Bon [employer] Inc Diastolic blood 68 mm[Hg] 68 mm[Hg] [facility] pressure [employer] Systolic blood 112 mm[Hg] 112 mm[Hg] [place] pressure [employer] Respiratory rate 20 /min 20 /min [facility] urs [employer] Body temperature 36.56 May 36.56 May [facility] [employer] Heart rate 92 /min 92 /min Bon [employer] Inc Diastolic blood 70 mm[Hg] 70 mm[Hg] [facility] pressure [facility] Inc Systolic blood 110 mm[Hg] 110 mm[Hg] [place] pressure [employer] Respiratory rate 20 /min 20 /min [facility] [employer] Heart rate 68 /min 68 /min [employer] Diastolic blood 72 mm[Hg] 72 mm[Hg] [facility] pressure [employer] Systolic blood 112 mm[Hg] 112 mm[Hg] [place] pressure [facility] Respiratory rate 20 /min 20 /min [facility] [employer] Heart rate 82 /min 82 /min [facility] [employer] [facility] [employer] Diastolic blood 66 mm[Hg] 66 mm[Hg] [facility] pressure [facility] Inc Systolic blood 110 mm[Hg] 110 mm[Hg] [place] pressure [employer] Respiratory rate 14 /min 14 /min [facility] [employer] Body temperature 36.89 May 36.89 May [facility] [employer] Heart rate 72 /min 72 /min [facility] Wavo[employer]me System [facility] Diastolic blood 74 mm[Hg] 74 mm[Hg] [facility] pressure [employer] Systolic blood 128 mm[Hg] 128 mm[Hg] [place] pressure [employer] Respiratory rate 20 /min 20 /min [facility] [employer] Heart rate 68 /min 68 /min [facility] [employer] [facility] [employer] Diastolic blood 64 mm[Hg] 64 mm[Hg] [facility] pressure [employer] Systolic blood 108 mm[Hg] 108 mm[Hg] [place] pressure [employer] Respiratory rate 18 /min 18 /min [facility] [employer] Heart rate 80 /min 80 /min [facility] [employer] Diastolic blood 70 mm[Hg] 70 mm[Hg] [facility] pressure [facility] Inc Systolic blood 98 mm[Hg] 98 mm[Hg] [place] pressure [employer] Respiratory rate 20 /min 20 /min [facility] [employer] Body temperature 36.56 May 36.56 May [facility] [employer] [facility] [employer] Heart rate 78 /min 78 /min [employer] [facility] [employer] [facility] [employer] Diastolic blood 60 mm[Hg] 60 mm[Hg] [facility] pressure [employer] Systolic blood 110 mm[Hg] 110 mm[Hg] [place] pressure [employer] [facility] [employer] Body mass index 48.95 kg/m2 48.95 kg/m2 [place] [facility] ours (BMI) [Ratio] [facility] System Inc Body weight 136.533 kg 136.533 kg [facility] [employer] [facility] [employer] Respiratory rate 18 /min 18 /min [facility] Inc Body temperature 36.56 May 36.56 May [facility] [employer] [facility] [employer] Heart rate 80 /min 80 /min [employer] SecUNX Inc Diastolic blood 70 mm[Hg] 70 mm[Hg] [facility] pressure [employer]li System Inc Systolic blood 128 mm[Hg] 128 mm[Hg] [place] pressure [employer] Inc Oxygen saturation 98 % 98 % [facility] in Arterial blood [facility] by Pulse oximetry [facility] [employer] Body mass index 48.95 kg/m2 48.95 kg/m2 [facility] ours (BMI) [Ratio] [employer] [facility] Body weight 136.533 kg 136.533 kg [employer] Inc Body height 167 cm 167 cm [employer] Respiratory rate 14 /min 14 /min [employer] [facility] urs [employer] Inc Body temperature 36.44 May 36.44 May [facility] [employer] Heart rate 98 /min 98 /min [employer] Diastolic blood 60 mm[Hg] 60 mm[Hg] [facility] pressure [employer] Inc Systolic blood 110 mm[Hg] 110 mm[Hg] [place] pressure [employer] Inc Oxygen saturation 96 % 96 % [facility] in Arterial blood Bela [employer] by Pulse oximetry System Inc Respiratory rate 18 /min 18 /min [facility] [employer] Body temperature 36.72 May 36.72 May [facility] [employer] Heart rate 80 /min 80 /min [employer] Diastolic blood 88 mm[Hg] 88 mm[Hg] [facility] pressure [employer] Systolic blood 128 mm[Hg] 128 mm[Hg] [place] pressure BelaQuestli System Inc Body mass index 48.97 kg/m2 48.97 kg/m2 [facility] ours (BMI) [Ratio] [employer] Body weight 136.578 kg 136.578 kg [employer] Body height 167 cm 167 cm [facility] [employer] Oxygen saturation 98 % 98 % [facility] in Arterial blood [facility] by Pulse oximetry System Inc Body mass index 48.30 kg/m2 48.30 kg/m2 [facility] ours (BMI) [Ratio] [employer] Body weight 134.718 kg 134.718 kg [employer] Body height 167 cm 167 cm [employer] Respiratory rate 14 /min 14 /min [facility] [employer] Body temperature 37.33 May 37.33 May [facility] [employer] Heart rate 100 /min 100 /min [employer] Diastolic blood 68 mm[Hg] 68 mm[Hg] [facility] pressure [employer] Systolic blood 118 mm[Hg] 118 mm[Hg] [place] pressure [employer] Oxygen saturation 98 % 98 % [facility] in Arterial blood Bela [employer] by Pulse oximetry System Inc Body mass index 47.49 kg/m2 47.49 kg/m2 [facility] ours (BMI) [Ratio] [employer] Body weight 132.45 kg 132.45 kg [employer] Body height 167 cm 167 cm [employer] Respiratory rate 12 /min 12 /min [facility] [employer] Body temperature 36.44 May 36.44 May [facility] [employer] Heart rate 88 /min 88 /min [employer] Diastolic blood 70 mm[Hg] 70 mm[Hg] [facility] pressure [employer] Systolic blood 102 mm[Hg] 102 mm[Hg] [place] pressure [employer] Oxygen saturation 92 % 92 % [facility] ours in Arterial blood Bela [employer] by Pulse oximetry System [employer] Body mass index 45.86 kg/m2 45.86 kg/m2 [facility] ours (BMI) [Ratio] [employer] Body weight 133.811 kg 133.811 kg [employer] Body height 170.8 cm 170.8 cm [employer] Respiratory rate 12 /min 12 /min [facility] [employer] Body temperature 36.67 May 36.67 May [facility] urs [employer] Heart rate 88 /min 88 /min [employer] Diastolic blood 80 mm[Hg] 80 mm[Hg] [facility] pressure [employer] Systolic blood 120 mm[Hg] 120 mm[Hg] [place] pressure [employer] Oxygen saturation 95 % 95 % [facility] in Arterial blood Bela [employer] by Pulse oximetry System Inc Respiratory rate 18 /min 18 /min [facility] [employer] System [employer] Body temperature 36.44 May 36.44 May [facility] [employer] Heart rate 100 /min 100 /min [facility] [employer] Inc Diastolic blood 80 mm[Hg] 80 mm[Hg] [facility] pressure [employer] Systolic blood 123 mm[Hg] 123 mm[Hg] [place] pressure [employer] Body mass index 46.99 kg/m2 46.99 kg/m2 [facility] ours (BMI) [Ratio] [employer] [facility] Body weight 136.079 kg 136.[address] [facility] Body height 170.2 cm 170.2 cm [employer] Oxygen saturation 96 % 96 % [facility] ours in Arterial blood Bela [employer] by Pulse oximetry System Inc Body mass index 45.55 kg/m2 45.55 kg/m2 [facility] ours (BMI) [Ratio] [employer] System Inc Body weight 132.904 kg 132.904 kg [facility] Magix Inc Body height 170.8 cm 170.8 cm [facility] [employer] Inc Respiratory rate 14 /min 14 /min [facility] [employer] Body temperature 35.89 May 35.89 May [facility] [employer] Heart rate 96 /min 96 /min Bon SecUNX Inc Diastolic blood 78 mm[Hg] 78 mm[Hg] [facility] pressure [employer] Systolic blood 116 mm[Hg] 116 mm[Hg] [place] pressure [employer]Mistral [employer] Inc Oxygen saturation 92 % 92 % [facility] in Arterial blood Bela [employer] by Pulse oximetry System Inc Respiratory rate 15 /min 15 /min [facility] [employer] System [employer] Heart rate 96 /min 96 /min Bon Magix Inc Diastolic blood 86 mm[Hg] 86 mm[Hg] [facility] pressure [employer] Systolic blood 121 mm[Hg] 121 mm[Hg] [place] pressure [employer] Body mass index 40.18 kg/m2 40.18 kg/m2 [facility] ours (BMI) [Ratio] [employer] Body weight 127.007 kg 127.007 kg [employer] Body height 177.8 cm 177.8 cm [employer] Body temperature 36.72 May 36.72 May [facility] [employer] Body temperature 36.33 May 36.33 May [facility] [employer] Oxygen saturation 96 % 96 % [facility] in Arterial blood Bela [employer] by Pulse oximetry System Inc Respiratory rate 21 /min 21 /min [facility] [employer] Heart rate 85 /min 85 /min [employer] Diastolic blood 88 mm[Hg] 88 mm[Hg] [facility] pressure [employer] Systolic blood 155 mm[Hg] 155 mm[Hg] [place] pressure [employer] Body mass index 40.18 kg/m2 40.18 kg/m2 [facility] ours (BMI) [Ratio] [employer] Body weight 127.007 kg 127.007 kg [employer] Body height 177.8 cm 177.8 cm [employer] Oxygen saturation 98 % 98 % [facility] in Arterial blood [facility] by Pulse oximetry System Inc Body mass index 44.66 kg/m2 44.66 kg/m2 [facility] ours (BMI) [Ratio] [employer] Apart [facility] Body weight 128.368 kg 128.368 kg [employer] Body height 169.5 cm 169.5 cm [employer] Respiratory rate 12 /min 12 /min [facility] [employer] Body temperature 36.28 May 36.28 May [facility] [employer] Heart rate 68 /min 68 /min [employer] Diastolic blood 80 mm[Hg] 80 mm[Hg] [facility] pressure [employer] Systolic blood 122 mm[Hg] 122 mm[Hg] [place] pressure [employer] Oxygen saturation 96 % 96 % [facility] in Arterial blood Bela [employer] by Pulse oximetry System Inc Diastolic blood 53 mm[Hg] 53 mm[Hg] [facility] pressure [employer] Systolic blood 107 mm[Hg] 107 mm[Hg] [place] pressure [employer] Respiratory rate 17 /min 17 /min [facility] urs [place] Body temperature 37.11 May 37.11 May [facility] [employer] [facility] Inc Heart rate 58 /min 58 /min [facility] [employer] Body mass index 38.06 kg/m2 38.06 kg/m2 [facility] ours (BMI) [Ratio] [employer] Body weight 110.224 kg 110.224 kg [facility] Measured [place] Body height 170.2 cm 170.2 cm [facility] Zubican [facility] Oxygen saturation 98 % 98 % [facility] in Arterial blood Bela [employer] by Pulse oximetry [employer] Inc Body mass index 37.71 kg/m2 37.71 kg/m2 [facility] ours (BMI) [Ratio] [employer] Body weight 108.41 kg 108.41 kg [facility] Measured [place] Body height 169.5 cm 169.5 cm [employer] Respiratory rate 16 /min 16 /min [facility] urs [place] Body temperature 36.44 May 36.44 May [facility] urs [place] Heart rate 74 /min 74 /min [facility] Diastolic blood 70 mm[Hg] 70 mm[Hg] [facility] pressure [place] Systolic blood 94 mm[Hg] 94 mm[Hg] [place] pressure Zubican [facility] Oxygen saturation 98 % 98 % [facility] in Arterial blood [employer] by Pulse oximetry System Inc Respiratory rate 17 /min 17 /min [facility] [employer] Body temperature 36.33 May 36.33 May [facility] [employer] Heart rate 87 /min 87 /min [facility] [employer] Diastolic blood 75 mm[Hg] 75 mm[Hg] [facility] pressure [place] Systolic blood 121 mm[Hg] 121 mm[Hg] [place] pressure [place] Body mass index 39.94 kg/m2 39.94 kg/m2 [facility] ours (BMI) [Ratio] [employer] Body weight 108.863 kg 108.863 kg [facility] Measured [place] Body height 165.1 cm 165.1 cm [employer] Patient Treatment Plan of Care Planned Activity Planned Date Details Description Data Source (s) Propranolol Hydrochloride 01/08/2020 Francisco Javier n [facility] [place] 10 MG Oral Tablet 12:00:00 AM EDT [...] medoxomil 20 MG 12/09/2019 [facility] Bela Oral Tablet 12:00:00 AM EDT [...] 12:00:00 AM EDT [facility] [place] Carbonate 300 MG 11/30/2019 [facility] Bela [...] Bela Release Oral Tablet 12:00:00 AM EDT [employer] [facility] [employer] Bisacodyl 5 MG Delayed 10/31/2019 [facility] Bela Release Oral Tablet 01:50:17 PM EDT [employer] [facility] [employer] Acetaminophen 325 MG Oral 10/29/2019 Francisco Javier n [facility] Bela Tablet 02:44:40 PM EDT [facility] sodium chloride (NS) flush 10/29/2019 [facility] 5-40 mL 11:01:53 AM EDT [facility] 24 HR Bupropion 10/17/2019 [facility] Hydrochloride 150 MG 12:00:00 AM EDT [facility] Extended Release Oral Tablet 24 HR Bupropion 10/17/2019 [facility] Hydrochloride 300 MG 12:00:00 AM EDT [employer] [facility] Extended Release Oral Tablet Vraylar 3 mg capsule 09/03/2019 [facility] Bela 12:00:00 AM EDT [facility] Amitriptyline Hydrochloride 08/20/2019 [facility] 150 MG Oral Tablet 12:00:00 AM EST [facility] [place] Carbonate 150 MG 08/16/2019 [facility] Bela [...] Inc Clonazepam 2 MG Oral Tablet [facility] System I nc cariprazine (Vraylar) 6 mg [facility] 24 HR Bupropion [facility] Hydrochloride 300 MG [facility] Extended Release Oral Tablet fluoxetine HCl (PROZAC PO) [facility] ziprasidone 80 MG Oral Bon [facility] Bela [facility] I nc valacyclovir 500 MG Oral [facility] Bela Tablet [Valtrex] [facility]
[2020-03-11 10:54] VITALS: PULSE 85
[2020-03-11 11:31] VITALS: TEMP 98.2
[2020-03-11 11:35] VITALS: BP 123/74
== END 2020-03-11 11:36 | disposition home or self-care (01) ==
LOC: FECT 09:26
PROVIDERS: ATTEND Psychiatry & Neurology Psychiatry
PROC: GZB4ZZZ Other Electroconvulsive Therapy (ICD-10-PCS; principal; 2020-03-11 07:00)
DX: F32.9 Major depressive disorder, single episode, unspecified (principal)
CPT/HCPCS: 90870; 94760

== ENCOUNTER 2020-03-12 09:13 | Day surgery (SDC) | payer OTHER ==
--- OUTSIDE RECORDS SUMMARY | 2020-03-08 14:34 | XMS ---
:1970 Author Organization [facility] Care Team Providers Name Role Phone RITIKA CANAS Unavailable Unavailable DEE DEE Unavailable Unavailable GUEVARA Unavailable Unavailable MINEV Unavailable Unavailable LONGO Unavailable Unavailable BREGAUDIT Unavailable Unavailable CATHERINE Unavailable Unavailable Re-disclosure Warning The records that you are about to access may contain information from federally- assisted alcohol or drug abuse programs. If such information is present, then the following federally mandated warning applies: This information has been disclosed to you from records protected by federal confidentiality rules (42 CFR part 2). The federal rules prohibit you from making any further disclosure of this information unless further disclosure is expressly permitted by the written consent of the person to whom it pertains or as otherwise permitted by 42 CFR part 2. A general authorization for the release of medical or other information is NOT sufficient for this purpose. The Federal rules restrict any use of the information to criminally investigate or prosecute any alcohol or drug abuse patient.The records that you are about to access may contain highly sensitive health information, the redisclosure of which is protected by Article 27-F of the [place] State Public Health law. If you continue you may haveaccess to information: Regarding HIV / AIDS; Provided by facilities licensed or operated by the [facility] Office of Mental Health; or Provided by the [facility] Office for People With Developmental Disabilities. If such information is present, then the following [facility] mandated warning applies: This information has been disclosed to you from confidential records which are protected by state law. State law prohibits you from making any further disclosure of this information without the specific written consent of the person to whom it pertains, or as otherwise permitted by law. Any unauthorized further disclosure in violation of state law may result in a fine or snf sentence or both. A general authorization for the release of medical or other information is NOT sufficient authorization for further disclosure. Encounters Encounter Providers Location Date Indications Data Source(s ) Outpatient 01/08/2020 03:30:00 [facility] PM EDT - 01/12/2020 [facility] 10:23:35 AM EDT Patient discharged. Attender: MARIYA CATHERINE 01/01/2020 12:00:00 AM [facility] Attender: MAURICIO 12/30/2019 12:00:00 [facility]ender: MARIYA CATHERINE 12/29/2019 12:00:00 [facility] 04:00[facility]00 [facility] 06:48[facility]40 [facility] PM EDT Patient discharged. [facility] 12[facility] 11[facility]00 PM EDT Attender: MARIYA 12/25/2019 12:00:00 AM [facility] Attender: SUSI LONGO 12/25/2019 12:00:00 AM [facility] Attender: MAURICIO 12/24/2019 12:00:00 AM [facility] Attender: MARIYA 12/22/2019 12:00:00 AM [facility] Attender: SUSI LONGO 12/22/2019 12:00:00 AM [facility] Attender: MAURICIO 12/19/2019 12:00:00 AM [facility] Attender: MARIYA 12/18/2019 12:00:00 AM [facility] Attender: GLADIS FUNEZ 12/18/2019 12:00:00 AM [facility] Attender: SUSI LONGO 12/17/2019 12:00:00 AM [facility] Attender: MAURICIO 12/16/2019 12:00:00 AM [facility]: MARIYA 12/15/2019 12:00:00 AM [facility] Attender: XANDER COLBERT 12/13/2019 12:00:00 AM Bon [facility] Outpatient 12/12/2019 12:00:00 PM Francisco Javier n [facility] EDT - 12/12/2019 [facility] 01:20:23 PM EDT Patient discharged. Attender: ROSSI 12/08/2019 [facility]55[facility] System In c Inpatient Admitter: RITIKA 12/05/2019 12:00:00 [facility] - 12/08/2019 [facility] 03:44:00 PM EDT General Weakness Patient discharged. Outpatient 12/05/2019 12:00:00 AM EDT [facility] Outpatient 12/01/2019 03:45:00 PM EDT - [facility] 12/01/2019 05:01:16 PM EDT Inc Patient discharged. Outpatient 11/14/2019 01:00:00 PM EDT - [facility] 11/18/2019 11:56:43 AM EDT System Inc Patient discharged. Outpatient 11/10/2019 09:00:00 AM EDT - [facility] 11/10/2019 04:44:05 PM EDT System Inc Patient discharged. Inpatient Admitter: RITIKA CANAS 10/29/2019 12:00:00 AM let hargic [facility] EDT - 11/03/2019 [facility] 04:02:00 PM EDT lethargic Patient discharged. Outpatient 09/15/2019 08:22:58 AM EDT [facility] - 09/15/2019 11:59:00 PM Hospital EDT Outpatient 09/10/2019 04:00:00 PM EDT [facility] Outpatient 09/04/2019 03:15:00 PM EDT [facility] Outpatient 08/19/2019 07:31:00 AM EST [facility] ([facility]) Outpatient 08/18/2019 06:35:00 AM EST [facility] ([facility]) Outpatient 08/17/2019 07:16:00 AM EST NEXTGEN ([facility]) Emergency 08/16/2019 12:00:00 AM EST Shortness of Breath [facility] - 08/16/2019 10:45:00 PM Hospital EST Shortness of Breath Patient discharged. Outpatient 08/11/2019 12:05:00 AM EST [facility] Emergency 08/10/2019 12:00:00 AM EST - Chest P ain [facility] 08/11/2019 01:42:00 AM EST Hospital Chest Pain Patient discharged. Outpatient 07/21/2019 04:15:00 PM EST - [facility] 07/22/2019 10:51:43 AM EST System Inc Patient discharged. Immunizations Vaccine Date Status Description Data Source(s) New in 2012. 09/04/2019 completed Influenza 09/04/2019 [facility] IIV4 12:00:00 AM EDT Vaccine (Quad) [facility] IIV3. This is one 07/19/2018 completed Influenza 07/19/2018, [facility] of two codes 12:00:00 AM EST Vaccine 04/30/2014 Bela replacing CVX 15, He alth which is being [employer] retired. Influenza, 04/01/2016 completed Influenza 04/01/2016 [facility] injectable, MDCK, 12:00:00 AM EDT Vaccine (Quad) [facility] preservative [facility] quadrivalent Tdap 12/11/2014 completed Tdap 12/11/2014 [facility] 12:00:00 AM EDT [facility] [employer] [facility] IIV3. This is one 04/30/2014 completed Influenza 07/19/2018, [facility] of two codes 12:00:00 AM EST Vaccine 04/30/2014 Bela replacing CVX 15, He alth which is being [employer] retired. RAMAKRISHNA 06/12/2013 completed Influenza 06/12/2013 [facility] 12:00:00 AM EST Vaccine Moira ity (Trivalent) [facility] Medications Medication Brand Start Product Dose Route Administrative Pharmacy [facility] Indications Reaction Description Data Name Date Form Instructions Instructions Source(s) Propranolol propra 10 mg Oral active essential T stephanie 1 Tab Bon Hydrochlori noloL 2019 tremor by mouth S [facility] de 10 MG (BETO 12:00: three (3) Ch arity Oral Tablet AL) 10 00 AM times [facility] propranoloL mg EDT Indications: System Inc (INDERAL) tablet essential 10 mg tremor tablet essential tremor Clonazepam clonazePAM 12/25/2019 0.5 Oral active Bipolar Take 1 Bon 0.5 MG Oral (KlonoPIN) 12:00:00 AM mg disorder w ith Tab by [facility] Tablet 0.5 mg EDT severe mouth Bela clonazePAM tablet depression three Health (KlonoPIN) (HCC)Anxiety (3) S ystem 0.5 mg times Inc tablet daily for 30 days. Max Daily Amount: 1.5 mg. Bipolar disorder with severe depression (HCC) Anxiety Ibuprofen ibuprofen 12/22/2019 2 {tbl} Oral active Take 2 Tabs Bon 200 MG Oral (MOTRIN) 200 12:00:00 AM by mouth [facility] Tablet mg tablet EDT every eight C harity ibuprofen (8) hours as He alth (MOTRIN) 200 needed for S ystem mg tablet Pain (mild to I nc mod pain). has been taking since discharge from hospital olanzapine 5 OLANZapine 12/09/2019 5 mg Oral active 5 mg, Oral, Bon MG Oral (ZyPREXA) 09:00:00 AM DAILY , [facility] Tablet tablet 5 mg EDT dose (after [facility] OLANZapine last Health (ZyPREXA) modification) S ystem tablet 5 mg on [employer] 12/09/19 at 0900, Until Discontinued Medication administered onsite Olmesartan olmesartan 12/09/2019 20 Oral completed h ypertension Take 1 Tab by Bon medoxomil (BENICAR) 12:00:00 AM mg paul th daily [facility] 20 MG Oral 20 mg EDT for 30 days. Bela Tablet tablet Indications: Hea lth olmesartan high blood Sys tem (BENICAR) pressure Inc 20 mg tablet hypertension Losartan losartan 12/09/2019 50 Oral active hypertension Take 1 Tab by Bon Potassium (COZAAR) 12:00:00 AM mg mout h daily [facility] 50 MG Oral 50 mg EDT for 30 days. Bela Tablet tablet Indications: Hea lt losartan high blood Syste m (COZAAR) 50 pressure Inc mg tablet hypertension olanzapine 5 OLANZapine 12/09/2019 5 Oral active evangelina [The details Bon MG Oral (ZyPREXA) 5 12:00:00 AM mg associated of the [facility] Tablet mg tablet EDT with medication Ch arity OLANZapine bipolar are not Hea lt (ZyPREXA) 5 disorder available System mg tablet because Inc there are pending changes by a home health clinician.] evangelina associated with bipolar disorder Clonazepam clonazePAM 12/08/2019 0.5 Oral aborted Anxiety Take 1 Bon 0.5 MG Oral (KlonoPIN) 12:00:00 AM mg Tab by [facility] Tablet 0.5 mg EDT mouth Bela clonazePAM tablet three Health (KlonoPIN) (3) System 0.5 mg times Inc tablet daily for 30 days. Max Daily Amount: 1.5 mg. Anxiety Amitriptyline amitriptyline 12/07/2019 200 Oral activ e depression 200 mg, Oral, Bon Hydrochloride (ELAVIL) 09:00:00 PM mg EVERY BEDTIME, [facility] 100 MG Oral tablet 200 mg EDT Firs t dose Bela Tablet (after last Health amitriptyline modificatio n) System (ELAVIL) on 12/07/19 I nc tablet 200 mg at 2100, Un til Discontinued depression Medication administered onsite Clonazepam clonazePAM 12/07/2019 0.5 Oral active 0.5 mg, Oral, Bon 0.5 MG Oral (KlonoPIN) 04:00:00 PM mg 3 TIMES DAILY, [facility] Tablet tablet 0.5 EDT 12 doses, Ch arity clonazePAM mg First dose Hea lth (KlonoPIN) (after last Sy stem tablet 0.5 modification) Inc mg on 12/07/19 at 1600, Last dose on Denise 12/11/19 at 0900 Medication administered onsite olanzapine OLANZapine 12/07/2019 2.5 Oral aborted 2.5 mg, Oral, Bon 2.5 MG Oral (ZyPREXA) 02:00:00 PM mg D AILY, [facility] Tablet tablet 2.5 EDT dose on Sun Bela OLANZapine mg 12/07/19 at [facility] (ZyPREXA) 1400, Until Sys tem tablet 2.5 Discontinued I nc mg Medication administered onsite [place] lithium 12/07/2019 300 Oral active 300 mg , Oral, Bon Carbonate carbonate SR 02:00:00 PM mg 2 TIMES DAILY, [facility] 300 MG (LITHOBID) EDT First dose o n Bela Extended tablet 300 Sun 0 at [facility] Release Oral mg 1400, Until System Tablet Discontinued Inc lithium carbonate SR (LITHOBID) tablet 300 mg Medication administered onsite Losartan losartan 12/07/2019 50 Oral active 50 m g, Oral, Bon Potassium 50 (COZAAR) 01:00:00 PM mg D AILY, [facility] MG Oral tablet 50 EDT dose on Sun Bela Tablet mg 12/07/19 at [facility] losartan 1300, Until Syst em (COZAAR) Discontinued Inc tablet 50 mg Medication administered onsite furosemide 16667-624-82 12/07/2019 20 IntraVENous complete d 20 mg, Bon (LASIX) 12:00:00 AM mg IntraVENou s, [facility] injection EDT ONCE, 1 dose, C harity 20 mg 12/07/19 Health at 0000 System Inc Medication administered onsite amitriptyline 12/06/2019 150 Oral aborted depression 150 mg, Oral, Bon (ELAVIL) tablet 09:00:00 PM mg EV AN [facility] 150 mg EDT BEDTIME, Bela First dose on Health 12/06/19 System at 2100, Inc Until Discontinued depression Medication administered onsite Clonazepam 1 clonazePAM 12/06/2019 1 mg Oral aborted 1 mg, Bon MG Oral (KlonoPIN) 06:00:00 PM Oral , 2 [facility] Tablet tablet 1 mg EDT TIMES Michelle ty clonazePAM DAILY, 14 Heal th (KlonoPIN) doses, System tablet 1 mg First Inc dose on 12/06/19 at 1800, Last dose on 12/13/19 at 0900 Medication administered onsite furosemide 10089-359-25 12/06/2019 20 IntraVENous complete d edema 20 mg, Bon (LASIX) 05:00:00 PM mg IntraVENou s, [facility] injection EDT ONCE, 1 dose, C harity 20 mg 12/06/19 Health at 1700 System Inc edema Medication administered onsite 0.4 ML enoxaparin 12/05/2019 40 SubCUTAneous aborted 40 mg, Bon Enoxaparin (LOVENOX) 09:00:00 PM mg Gallardo bCUTAneous, [facility] sodium 100 injection EDT EVERY 24 Bela MG/ML 40 mg HOURS, First Healt h Prefilled dose (after Sys tem Syringe last Inc enoxaparin modification) (LOVENOX) on Sun12/05/19 injection 40 at 2100, Unt il mg Discontinued Medication administered onsite 0.9% [id number] 12/05/2019 100 IntraVENous aborted 100 mL/hr, at Bon sodium 11:21:00 AM mL/h 100 mL/hr, [facility] chloride EDT IntraVENous, Jagruti rity infusion CONTINUOUS, Heal th Starting Fri System 12/05/19 at Inc 1121, Until 12/08/19 at 1304 Medication administered onsite cefTRIAXone 12/05/2019 1 g IntraVENous completed 1 g, Bon (ROCEPHIN) 1 11:20:00 AM Intra VENous, [facility] g in 0.9% EDT NOW, 1 dose, Ch arity sodium 12/05/19 at Hea lt chloride 1121, at 100 Sys tem (MBP/ADV) 50 mL/hr Inc mL MBP Medication administered onsite Risperidone 2 risperiDONE 12/04/2019 2 mg Oral aborted Share d Take 1 Bon MG Oral (RisperDAL) 2 12:00:00 AM psychotic Tab by [facility] Tablet mg tablet EDT disorder mouth Jagruti rity risperiDONE (HCC) daily. Healt h (RisperDAL) 2 System mg tablet Inc Shared psychotic disorder (HCC) [place] lithium 11/30/2019 aborted Bon Carbonate 300 carbonate 300 12:00:00 AM [facility] MG Oral mg capsule EDT Charit y Capsule Health lithium System carbonate 300 Inc mg capsule Amitriptyline amitriptyline 11/12/2019 2 Oral active depr ession Take 2 Bon Hydrochloride (ELAVIL) 100 12:00:00 AM {t Tabs by [facility] 100 MG Oral mg tablet EDT bl mouth Ch arity Tablet } nightly. Health amitriptyline Indicatio S ystem (ELAVIL) 100 ns: Inc mg tablet depressio n depression Docusate docusate 11/04/2019 200 Oral aborted To e 2 Caps Bon Sodium 100 MG sodium 12:00:00 AM mg by mouth [facility] Oral Capsule (COLACE) EDT daily fo r 90 Bela docusate 100 mg days. Health sodium capsule System (COLACE) 100 Inc mg capsule Bisacodyl 5 bisacodyL 11/03/2019 5 mg Oral aborted Take 1 Tab by Bon MG Delayed (DULCOLAX) 12:00:00 AM m outh daily. [facility] Release Oral 5 mg EC EDT Moira ity Tablet tablet Health bisacodyL System (DULCOLAX) 5 Inc mg EC tablet cariprazine [id number] 11/01/2019 6 mg Oral active 6 m g, Oral, Bon (VRAYLAR) 09:00:00 PM EVERY Se cours capsule 6 mg EDT BEDTIME, Jagruti brayambrocio (Patient First dose on He alth Supplied) 11/01/19 at S ystem 2100, Until Inc Discontinued Medication administered onsite Hydrocortisone hydrocortisone 11/01/2019 Topical active Topical, 2 Bon 0.025 MG/MG (HYTONE) 2.5 % 06:00:00 PM TIMES DAILY, [facility] Topical Ointment ointment EDT Firs t dose on Bela hydrocortisone 11/01/19 at [facility] (HYTONE) 2.5 % 1800, Unti l System ointment Discontinued Inc Medication administered onsite Docusate docusate 10/31/2019 200 Oral active 200 mg, Oral, Bon Sodium 100 sodium 02:00:00 PM mg DAILY , First [facility] MG Oral (COLACE) EDT dose on Sun C harity Capsule capsule 200 10/31/19 at [facility] docusate mg 1400, Until Syst em sodium Discontinued Inc (COLACE) capsule 200 mg Medication administered onsite Bisacodyl 5 bisacodyL 10/31/2019 5 mg Oral active 5 mg, Oral, Bon MG Delayed (DULCOLAX) 01:50:17 PM D AILY PRN, [facility] Release Oral tablet 5 mg EDT Start ing Sun Bela Tablet 10/31/19 at 1350, He alth bisacodyL Until System (DULCOLAX) Discontinued, Inc tablet 5 mg Constipation Medication administered onsite Haloperidol 5 haloperidoL 10/30/2019 5 mg Oral completed 5 mg, Bon MG Oral Tablet (HALDOL) 09:00:00 PM Oral, [facility] haloperidoL tablet 5 mg EDT ONCE, 1 [facility] (HALDOL) dose, [facility] tablet 5 mg Denise System 10/30/19 [facility] at 2100 Medication administered onsite amitriptyline 10/30/2019 150 mg Oral active 1 50 mg, Oral, Bon (ELAVIL) tablet 09:00:00 PM EV AN BEDTIME, [facility] 150 mg EDT First dose on [facility] ity Denise 10/30/19 at [facility] 2100, Until System I nc Discontinued Medication administered onsite Haloperidol 2 haloperidoL 10/30/2019 2 mg Oral aborted 2 mg, Oral, Bon MG Oral (HALDOL) 08:01:20 PM EVERY 6 [facility] Tablet tablet 2 mg EDT HOURS Ch arity haloperidoL NEEDED, [facility] h (HALDOL) Starting Denise Sys tem tablet 2 mg 10/30/19 at [facility] 2000, Until 10/31/19 at 2043, Psychosis, Agitation Medication administered onsite [place] lithium 10/30/2019 300 Oral active 300 mg , Oral, Bon Carbonate carbonate 12:00:00 PM mg 2 T IMES DAILY, [facility] 300 MG Oral tablet 300 EDT First d ose on Bela Tablet mg Denise 10/30/19 at [facility] lithium 1200, Until Syste m carbonate Discontinued In c tablet 300 mg Medication administered onsite Clonazepam 1 clonazePAM 10/30/2019 1 mg Oral active 1 mg, Oral, 2 Bon MG Oral (KlonoPIN) 12:00:00 PM TIME S DAILY, [facility] Tablet tablet 1 mg EDT First dose on [facility] clonazePAM [facility] 10/30/19 at [facility] (KlonoPIN) 1200, Until Sy stem tablet 1 mg Discontinued [facility] Medication administered onsite 0.9% [id number] 10/29/2019 100 IntraVENous aborted 100 mL/hr, at Bon sodium 02:55:00 PM mL/h 100 mL/hr, [facility] chloride EDT IntraVENous, Jagruti rity infusion CONTINUOUS, [facility] Starting Wed System 10/29/19 at [facility] 1455, Until 11/01/19 at 1446 Medication administered onsite 0.4 ML enoxaparin 10/29/2019 40 SubCUTAneous active 40 mg, Bon Enoxaparin (LOVENOX) 02:55:00 PM mg Gallardo bCUTAneous, [facility] sodium 100 injection 40 EDT EVERY 24 Bela MG/ML mg HOURS, First Health Prefilled dose on Sun Sys tem Syringe 10/29/19 at [facility] enoxaparin 1455, Until (LOVENOX) Discontinued injection 40 mg Medication administered onsite Acetaminophen acetaminophen 10/29/2019 650 Oral active 650 mg, Oral, Bon 325 MG Oral (TYLENOL) 02:44:40 PM mg E VERY 4 HOURS [facility] Tablet tablet 650 mg EDT NEEDED , Bela acetaminophen Starting We [facility] (TYLENOL) 10[facility]29/[facility] mg 1444, Until Inc Discontinued, Mild Pain, Fever Medication administered onsite sodium 11240-792-52 10/29/2019 mL IntraVENous active 5-40 mL, Bon chloride 02:00:00 PM IntraVENo us, [facility] (NS) flush EDT EVERY 8 Charit y 5-40 mL HOURS, First Heal dose on Sun System 10/29/19 at Inc 1400, Until Discontinued Medication administered onsite sodium [id number] 10/29/2019 mL IntraVENous active 5-40 mL, Bon chloride 11:01:53 AM IntraVENo us, [facility] (NS) flush EDT NEEDED, Jagruti rity 5-40 mL Starting Sun Heal th 10/29/19 at System 1101, Until Inc Discontinued, Line Patency Medication administered onsite 24 HR buPROPion XL 10/17/2019 aborted Bon Bupropion (WELLBUTRIN 12:00:00 AM [facility] Hydrochloride XL) 300 mg EDT Bela 300 MG XL tablet Health Extended System Release Oral Inc Tablet buPROPion XL (WELLBUTRIN XL) 300 mg XL tablet 24 HR buPROPion XL 10/17/2019 aborted Bon Bupropion (WELLBUTRIN 12:00:00 AM [facility] Hydrochloride XL) 150 mg EDT Bela 150 MG tablet Health Extended System Release Oral Inc Tablet buPROPion XL (WELLBUTRIN XL) 150 mg tablet Vraylar 3 mg [id number] 09/03/2019 6 Oral aborted depre ssion Take 6 mg Bon capsule 12:00:00 AM mg associated by m outh [facility] EDT with nightly. Bela bipolar Prescripti Health disorder on is 6 mg Syste m capsule Inc Indication s: bipolar depression depression associated with bipolar disor mariano Amitriptyline amitriptyline 08/20/2019 200 Oral aborted Take 200 Bon Hydrochloride (ELAVIL) 150 mg 12:00:00 AM mg mg by [facility] 150 MG Oral tablet EST mouth Michelle ty Tablet nightly. Health amitriptyline System (ELAVIL) 150 mg Inc tablet Aspirin 81 MG aspirin 08/16/2019 162 Oral completed 162 mg, Bon Chewable Tablet chewable tablet 09:03:00 PM mg Oral, [facility] aspirin 162 mg EST NOW, 1 Bela chewable tablet dose, [facility] 162 mg 08/16/19 System at 2103 Inc Medication administered onsite famotidine 08/16/2019 20 IntraVENous aborted 20 mg, Bon (PF) (PEPCID) 09:02:00 PM mg Intr aVENous, [facility] 20 mg in 0.9% EST EVERY 12 Ch arity sodium HOURS, First Healt h chloride 10 dose on Sat S ystem mL injection 08/16/19 at [facility] 2102, Until Discontinued Medication administered onsite methylPREDNISolone [id number] 08/16/2019 125 IntraVENous comple hyun 125 mg, Bon (PF) (Solu-MEDROL) 09:02:00 PM mg IntraVENous, [facility] injection 125 mg EST NOW, 1 d ose, Bela 08/16/19 Health at 2102 System Inc Medication administered onsite 0.9% [id number] 08/16/2019 1000 IntraVENous completed 1,000 mL, at Bon sodium 09:02:00 PM mL 1,000 mL/hr , [facility] chloride EST IntraVENous, Jagruti rity infusion ONCE, 1 dose, He alth 1,000 mL 08/16/19 Syst em at 2102 Inc Medication administered onsite Prednisone 50 predniSONE 08/16/2019 50 mg Oral active Take 1 Bon MG Oral Tablet (DELTASONE) 12:00:00 AM Tab by [facility] predniSONE 50 mg tablet EST mouth Bela (DELTASONE) 50 daily Heal th mg tablet for 3 System days. Inc [place] lithium 08/16/2019 2 Oral active Take 2 Bon Carbonate 150 carbonate 150 12:00:00 AM {tbl} Tabs by [facility] MG Oral mg capsule EST mouth Michelle ty Capsule two (2) Health lithium times System carbonate 150 daily Inc mg capsule (with meals). Aspirin 81 MG aspirin 08/10/2019 162 Oral completed 162 mg, Bon Chewable chewable 11:52:00 PM mg Oral, [facility] Tablet aspirin tablet 162 mg EST N OW, 1 Bela chewable dose, Health tablet 162 mg Sun System 08/10/19 Inc at 2352 Medication administered onsite Cyclobenzaprine cyclobenzaprine 07/21/2019 10 Oral aborted Acute Take 1 Tab Bon hydrochloride 10 (FLEXERIL) 10 mg 12:00:00 AM mg low by mouth [facility] MG Oral Tablet tablet EST back three (3 ) Bela cyclobenzaprine pain times Hea lth (FLEXERIL) 10 mg due to daily as System tablet trauma needed for Inc Muscle Spasm(s). Acute low back pain due to trauma Acetaminophen 325 MG / oxyCODONE-acetaminophen 07/21/2019 1 O ral active Acute Take 1 Bon Oxycodone Hydrochloride (PERCOCET) 5-325 mg per 12:00:00 AM {tbl} low Tab by [facility] 5 MG Oral Tablet tablet EST back mouth Bela oxyCODONE-acetaminophen pain e very Health (PERCOCET) 5-325 mg per due to six (6) System tablet trauma hours as Inc needed for Pain for up to 7 days. Max Daily Amount: 4 Tabs. Acute low back pain due to trauma VRAYLAR 6 [id number] 07/07/2019 6 mg Oral aborted Bipolar Take 6 Bon mg 12:00:00 AM disorder, in mg by [facility] capsule EST partial mouth Bela remission, daily. Health most recent System episode Inc depressed (HCC) Bipolar disorder, in partial remission, most recent episode depressed (HCC) valacyclovir valACYclovir 07/17/2018 aborted Herpe s TAKE 1 Bon 1000 MG Oral (VALTREX) 1 12:00:00 AM zoster TABLET [facility] Tablet gram tablet EST cephalicus BY Bela valACYclovir MOUTH Health (VALTREX) 1 THREE System gram tablet TIMES A Inc DAY FOR 10 DAYS Herpes zoster cephalicus lamotrigine 25 lamoTRIgine 12/07/2017 aborted TAKE 2 Bon MG Oral Tablet (LAMICTAL) 25 12:00:00 AM TABLETS [facility] lamoTRIgine mg tablet EDT BY MOUTH Bela (LAMICTAL) 25 TWO Health mg tablet TIMES System DAILY Inc Risperidone 1 risperiDONE 12/07/2017 aborted TAKE 1 Bon MG Oral Tablet (RISPERDAL) 1 12:00:00 AM TABLET [facility] risperiDONE mg tablet EDT BY MOUTH Bela (RISPERDAL) 1 THREE Healt h mg tablet TIMES System DAILY Inc Alprazolam 1 MG ALPRAZolam 12/07/2017 aborted TAKE 1 Bon Oral Tablet (XANAX) 1 mg 12:00:00 AM TABLET [facility] ALPRAZolam tablet EDT BY MOUTH Jagruti rity (XANAX) 1 mg TWO Health tablet TIMES System DAILY Inc NEEDED FOR ANXIETY cariprazine 256790 6 mg Oral aborted Take 6 B on (Vraylar) 6 mg mg by [facility] capsule mouth Bela daily. [facility] ziprasidone 80 ziprasidone 80 mg Oral aborted Take 80 Bon MG Oral Capsule (GEODON) 80 mg mg by [facility] ziprasidone capsule mouth Moira ity (GEODON) 80 mg two (2) He alth capsule times System daily Inc (with meals). valacyclovir valACYclovir Oral aborted T stephanie by Bon 500 MG Oral (VALTREX) 500 mout h [facility] Tablet mg tablet two (2) Michelle ty [Valtrex] times a Health valACYclovir day. System (VALTREX) 500 Inc mg tablet fluoxetine HCl 60 mg Oral aborted Take 6 0 Bon (PROZAC PO) mg by [facility] mouth Bela daily. [facility] Clonazepam 2 MG clonazePAM 1 mg Oral aborted Take 1 Bon Oral Tablet (KLONOPIN) 2 mg by [facility] clonazePAM mg tablet mouth Jagruti rity (KLONOPIN) 2 mg two (2) H ealth tablet times System daily as Inc needed. 24 HR Bupropion buPROPion XL 300 Oral aborted Take 300 Bon Hydrochloride (WELLBUTRIN mg mg b y [facility] 300 MG Extended XL) 300 mg XL mouth Bela Release Oral tablet every Heal th Tablet morning. System buPROPion XL Inc (WELLBUTRIN XL) 300 mg XL tablet Insurance Providers Payer name Policy type / Policy ID Covered Covered Policy Plan Coverage type green party ID green party's [place] Inform ation relationship to boland [facility] [id number] [facility] [id number] [facility] [id number] [facility] HMO [id number] [facility] Commerical [id number] [facility] [id number] [facility] [id number] HEALTH PLAN [facility] [id number] PLAN [facility] [id number] HEALTH PLAN POLO [id number] POLO [id number] [employer]IG[employer] O [id number] [facility] PPO [id number] PLAN [place] 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 [id number] [facility] [id number] 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 [id number] COMPENSATION [facility] [id number] GENERIC [id number] COMMERCIAL [facility] [id number] PLAN [facility] GENERIC Commerical [id number] [facility] PPO [id number] PLAN ON LICENSE OF [facility] [id number] PLAN 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 [id number] [facility] [id number] [facility] PPO [id number] [place] [address] Problems, Conditions, and Diagnoses Code Display Name Description Problem Type Effective Data Dates Source(s) T88.7XXA Wwd-sqge-cngjmqi Cog-vhyd-khtwndm [id number] 12/05/2019 Francisco Javier n [facility] adverse reaction to adverse reaction to 12:00:0 0 AM Bela medication medication [facility] [facility] T50.905A Adverse drug Adverse drug [id number] 12/05/2019 Lincoln s reaction, initial reaction, initial 12:00:00 AM [facility] encounter encounter [facility] [employer] G93.40 Encephalopathy acute Encephalopathy acute 20489764 12/04 [facility] 12:00:00 AM Bela [employer] F31.4 Bipolar disorder Bipolar disorder [id number] 10/29/2019 Francisco Javier n [facility] with severe with severe 12:00:00 AM Bela depression depression [facility] [employer] E55.9 Vitamin D deficiency Vitamin D deficiency 19387872 09/03 [facility] 12:00:00 AM [facility] [facility] F41.8 Mixed anxiety and Mixed anxiety and [id number] 09/04/2019 [facility] depressive disorder depressive disorder 12:00:0 0 AM [facility] E66.01 Morbid obesity Morbid obesity 71813331 07/21/2019 [facility] 12:00:00 AM [place] Z98.84 Status post gastric Status post gastric [id number] 020 [facility] bypass for obesity bypass for obesity 12:00:00 AM [place] F32.9 Depressive disorder Depressive disorder 11661968 020 [facility] 12:00:00 AM [place] F31.9 Bipolar disorder Bipolar disorder 23754424 07/21/2019 Francisco Javier n [facility] 12:00:00 AM [place] F41.9 Anxiety Anxiety 62490639 07/21/2019 [facility] 12:00:00 AM [place] F32.9 Depression Depression 06715565 07/20/2018 [facility] 12:00:00 AM [place] E66.01 Severe obesity Severe obesity 67349871 07/19/2018 [facility] 12:00:00 AM [place] [id number] Spells Spells 71655037 04/08/2016 [facility] 12:00:00 AM [facility] G40.909 Seizure disorder Seizure disorder 97188018 04/30/2014 Francisco Javier n [facility] 12:00:00 AM [place] M79.2 Neuropathic pain of Neuropathic pain of 08433408 014 [facility] shoulder shoulder 12:00:00 AM BelaOvonyx G47.00 Insomnia Insomnia 94408261 11/04/2013 [facility] 12:00:00 AM BelaOvonyx Z98.84 H/O gastric bypass H/O gastric bypass 23396286 3 [facility] 12:00:00 AM [place] G25.2 Other specified Other specified Diagnosis 01/08/2020 [facility] forms of tremor forms of tremor 03:17:29 PM [facility] [employer] F31.4 Bipolar disorder, Bipolar disorder, Diagnosis 12/25/2019 [facility] - current episode current episode 04:40:00 PM Goo d depressed, severe, depressed, severe, EDT Judaism without psychotic without psychotic Hospital features features F41.9 Anxiety disorder, Anxiety disorder, Diagnosis 12/25/2019 [facility] unspecified unspecified 04:04:24 PM [facility] R25.1 Tremor, unspecified Tremor, unspecified Diagnosis 020 [facility] 04:04:24 PM [facility] Z98.84 Bariatric surgery Bariatric surgery Diagnosis 12/25/2019 [facility] status status 04:04:24 PM [facility] T88.7XXA Unspecified adverse Unspecified adverse Diagnosis 020 [facility] - effect of drug or effect of drug or 11:10:37 AM Good medicament, initial medicament, initial [facility] encounter encounter Hospital G93.40 Encephalopathy, Encephalopathy, Diagnosis 12/05/2019 [facility] - unspecified unspecified 11:10:37 AM [facility] R41.82 Altered mental Altered mental Diagnosis 12/05/2019 [facility] - status, unspecified status, unspecified 11:10:3 7 AM [facility] F51.04 Psychophysiologic Psychophysiologic Diagnosis 11/14/2019 [facility] insomnia insomnia 01:22:52 PM [facility] F32.2 Major depressive Major depressive Diagnosis 09/15/2019 [facility] - disorder, single disorder, single 08:22:58 AM G ood episode, severe episode, severe EDT Aidan ritan without psychotic without psychotic Hospital features features F41.8 Other specified Other specified Diagnosis 09/04/2019 [facility] anxiety disorders anxiety disorders 03:49:01 PM [facility] F32.2 Major depressive Major depressive Diagnosis 09/04/2019 Francisco Javier n [facility] disorder, single disorder, single 03:49:01 PM C harity episode, severe episode, severe EDT Heal th without psychotic without psychotic System Inc features features Z23 Encounter for Encounter for Diagnosis 09/04/2019 [facility] immunization immunization 03:49:01 PM [facility] T78.40XA Allergy, Allergy, Diagnosis 08/16/2019 [facility] - unspecified, initial unspecified, initial 08:39 :16 PM Good encounter encounter [facility] R06.00 Dyspnea, unspecified Dyspnea, unspecified Diagnosis 08/10 [facility] - 11:27:27 PM [facility] F31.75 Bipolar disorder, in Bipolar disorder, in Diagnosis 07/21 [facility] partial remission, partial remission, 04:40:28 PM Bela most recent episode most recent episode EST Health depressed depressed [facility] [phone] essential tremor Diagnosis [facility] [id number] Bipolar disorder Diagnosis Bon [facility] with severe [facility] depression ([facility]) [facility] [id number] Anxiety Diagnosis Bon [facility] [phone] hypertension Diagnosis Bon [facility] 883 883 depression Diagnosis [facility] 883 883 depression Diagnosis [facility] [phone] edema Diagnosis [facility] 883 883 depression Diagnosis [facility] 828 828 evangelina associated Diagnosis Bon [facility] with bipolar [facility] 1255 1255 hypertension Diagnosis [facility] [id number] Anxiety Diagnosis Bon [facility] 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 [facility] disorder (disorder) disorder ([facility]) C [facility] 3762 3762 depression Diagnosis Bon [facility] associated with [facility] bipolar disorder [facility] [id number] Acute low back pain Diagnosis Bon [facility] due to trauma [facility] [id number] Acute low back pain Diagnosis Bon [facility] due to trauma [facility] [id number] Bipolar disorder, in Diagnosis [facility] partial remission, Charit y most recent episode Healt h depressed ([facility]) System In c [id number] Herpes zoster Diagnosis Bon [facility] cephalicus [facility] Surgeries/Procedures Procedure Description Date Indications Data Source(s) HC HC Routine 12/25/2019 Bipolar 12/25/2019 Bipolar Francisco Javier n LITHIUM LITHIUM 4:41 PM EDT disorder 04:41:00 PM disorde r [facility] with severe EDT with severe [facility] depression depression He alth ([facility]) ([facility]) System Inc Bipolar disorder with severe depression ([facility]) GLUCOSE, POC GLUCOSE, POC Routine 12/08/2019 12/08/2019 Bon 11:35 AM 11:35:00 AM Sec ours EDT EDT [facility] METABOLIC METABOLIC Routine 12/07/2019 12/07/2019 Bon PANEL, BASIC PANEL, BASIC 4:40 AM EDT 04:40:00 A M [facility] EEG 12-26 HR EEG 12-26 HR Routine 12/06/2019 12/06/2019 Bon W/VIDEO W/VIDEO 10:25 AM 10:25:08 AM [facility] HC LITHIUM Routine 12/06/2019 12/06/2019 Bon 4:25 AM EDT 04:25:00 AM [facility] HC LACTIC ACID HC LACTIC ACID STAT 12/05/2019 020 Bon 7:20 PM EDT 07:20:00 PM [facility] HC AMMONIA HC AMMONIA STAT 12/05/2019 12/05/2019 Bon 7:20 PM EDT 07:20:00 PM [facility] MRI BRAIN WO MRI BRAIN WO STAT 12/05/2019 12/05/2019 Bon CONT CONT 4:50 PM EDT 04:50:12 PM [facility] EEG 12-26 HR EEG 12-26 HR STAT 12/05/2019 12/05/2019 Bon W/VIDEO W/VIDEO 3:19 PM EDT 03:19:24 PM [facility] CULTURE, URINE CULTURE, URINE Routine 12/05/2019 020 Bon 2:45 PM EDT 02:45:00 PM [facility] URINALYSIS W/ URINALYSIS W/ STAT 12/05/2019 0 Bon RFLX RFLX 2:45 PM EDT 02:45:00 PM [facility] MICROSCOPIC MICROSCOPIC [facility] BILIRUBIN, BILIRUBIN, Routine 12/05/2019 12/05/2019 Bon CONFIRM CONFIRM 2:45 PM EDT 02:45:00 PM [facility] HC LACTIC ACID HC LACTIC ACID STAT 12/05/2019 020 Bon 12:40 PM 12:40:00 [facility] C[facility] HC CULTURE STAT 12/05/2019 12/05/2019 Bon BLOOD BLOOD 12:38 PM 12:38:00 PM Sec ours EDT EDT [facility] PROTHROMBIN PROTHROMBIN STAT 12/05/2019 12/05/2019 Bon TIME + INR TIME + INR 12:38 PM 12:38:00 PM [facility] EDT EDT [facility] CBC WITH CBC WITH STAT 12/05/2019 12/05/2019 Bon AUTOMATED DIFF AUTOMATED DIFF 12:38 PM 12:38:00 PM [facility] EDT EDT [facility] HC TROPONIN I HC TROPONIN I STAT 12/05/2019 0 Bon QUANT QUANT 12:38 PM 12:38:00 PM Sec [facility] EDT EDT [facility] METABOLIC METABOLIC STAT 12/05/2019 12/05/2019 Bon PANEL, PANEL, 12:38 PM 12:38:00 PM [facility] COMPREHENSIVE COMPREHENSIVE EDT EDT [facility] MAGNESIUM MAGNESIUM STAT 12/05/2019 12/05/2019 Bon 12:38 PM 12:38:00 PM Sec [facility] EDT EDT [facility] HC LITHIUM HC LITHIUM STAT 12/05/2019 12/05/2019 Bon 12:38 PM 12:38:00 PM Sec ours EDT EDT [facility] CT HEAD WO CT HEAD WO STAT 12/05/2019 12/05/2019 Bon CONT CONT 12:30 PM 12:30:54 PM Sec [facility] EDT EDT [facility] HC CULTURE HC CULTURE STAT 12/05/2019 12/05/2019 Bon BLOOD BLOOD 12:30 PM 12:30:00 PM Sec [facility] EDT EDT [facility] XR PELV AP XR PELV AP STAT 12/05/2019 12/05/2019 Bon ONLY ONLY 12:14 PM 12:14:58 PM Sec [facility] EDT EDT [facility] XR CHEST PORT XR CHEST PORT STAT 12/05/2019 0 Bon 12:14 PM 12:14:51 PM Sec [facility] EDT EDT [facility] RT--OXYGEN RT--OXYGEN STAT 12/05/2019 12/05/2019 Bon CANNULA CANNULA 11:20 AM 11:20:37 AM Sec [facility] EDT EDT [facility] EEG DIGITAL EEG DIGITAL Routine 12/05/2019 12/05/2019 Bon ANALYSIS ANALYSIS 11:10 AM 11:10:37 AM S [facility] EDT EDT [facility] CBC WITH CBC WITH STAT 10/30/2019 10/30/2019 Bon AUTOMATED DIFF AUTOMATED DIFF 6:40 AM EDT 06:40: 00 AM [facility] EDT [facility] METABOLIC METABOLIC STAT 10/30/2019 10/30/2019 Bon PANEL, BASIC PANEL, BASIC 6:40 AM EDT 06:40:00 A M [facility] EDT [facility] URINALYSIS W/ URINALYSIS W/ STAT 10/29/2019 0 Bon RFLX RFLX 6:34 PM EDT 06:34:00 PM [facility] MICROSCOPIC MICROSCOPIC EDT [facility] XR CHEST PORT XR CHEST PORT STAT 10/29/2019 0 Bon 12:09 PM 12:09:04 PM Sec ours EDT EDT [facility] CT HEAD WO CT HEAD WO STAT 10/29/2019 10/29/2019 Bon CONT CONT 11:47 AM 11:47:42 AM Sec ours EDT EDT [facility] HC GLUCOSE HC GLUCOSE Routine 10/29/2019 10/29/2019 Bon POCT POCT 11:26 AM 11:26:00 AM Sec ours EDT EDT [facility] PROTHROMBIN PROTHROMBIN STAT 10/29/2019 10/29/2019 Bon TIME + INR TIME + INR 10:45 AM 10:45:00 AM [facility] EDT EDT [facility] CBC WITH CBC WITH STAT 10/29/2019 10/29/2019 Bon AUTOMATED DIFF AUTOMATED DIFF 10:45 AM 10:45:00 AM [facility] EDT EDT [facility] HC PARTIAL HC PARTIAL STAT 10/29/2019 10/29/2019 Bon THROMBOPLASTIN THROMBOPLASTIN 10:45 AM 10:45:00 AM [facility] / PTT / PTT EDT EDT [facility] METABOLIC METABOLIC STAT 10/29/2019 10/29/2019 Bon PANEL, PANEL, 10:45 AM 10:45:00 AM Sec [facility] COMPREHENSIVE COMPREHENSIVE EDT EDT [facility] HC LITHIUM HC LITHIUM STAT 10/29/2019 10/29/2019 Bon 10:45 AM 10:45:00 AM Sec ours EDT EDT [facility] XR SPINE LUMB XR SPINE LUMB Routine 09/15/2019 Current 0 Current Bon 2 OR 3 V 2 OR 3 V 9:06 AM EDT severe 09:06:35 AM severe [facility] episode EDT episode Bela of major of major Health depressiv depressiv Syst em e e Inc disorder disorder without without psychotic psychotic features features without without prior prior episode episode (HCC) (HCC) Current severe episode of major depressi ve disorder without psychotic features without prior episode (HCC) XR SPINE XR SPINE Routine 09/15/2019 Current 09/15/2019 Current Bon THORAC 2 THORAC 2 9:06 AM EDT severe 09:06:35 AM severe [facility] V V episode of EDT episode of Ch arity major major Health depressive depressive Sy stem disorder disorder Inc without without psychotic psychotic features features without without prior prior episode episode (HCC) (HCC) Current severe episode of major depressi ve disorder without psychotic features without prior episode (HCC) XR SPINE XR SPINE Routine 09/15/2019 Current 09/15/2019 Current Bon CERV PA CERV PA 9:06 AM EDT severe 09:06:35 AM severe [facility] LAT LAT episode of EDT episode of Ch arity ODONT 3 ODONT 3 major major Health V MAX V MAX depressive depressive Sy stem disorder disorder Inc without without psychotic psychotic features features without prior without episode (HCC) prior episode (HCC) Current severe episode of major depressi ve disorder without psychotic features without prior episode (HCC) D DIMER D DIMER STAT 08/16/2019 08/17/2019 Francisco Javier n [facility] 9:00 PM EST 02:00:00 AM [facility] [employer] [facility] I [facility]c CBC WITH AUTOMATED CBC WITH STAT 08/16/2019 0 [facility] DIFF AUTOMATED DIFF 9:00 PM EST 02:00:00 AM [facility] [employer] [facility] I nc TROPONIN I TROPONIN I STAT 08/16/2019 08/17/2019 [facility] 9:00 PM EST 02:00:00 AM [facility] [employer] [facility] I nc METABOLIC PANEL, METABOLIC PANEL, STAT 08/16/2019 [facility] COMPREHENSIVE COMPREHENSIVE 9:00 PM EST 02:00:00 AM [facility] [employer] [facility] I nc MAGNESIUM MAGNESIUM STAT 08/16/2019 08/17/2019 [facility] 9:00 PM EST 02:00:00 AM [facility] [employer] [facility] I nc LITHIUM LITHIUM STAT 08/16/2019 08/17/2019 Francisco Javier n [facility] 9:00 PM EST 02:00:00 AM [facility] [employer] [facility] I nc INFLUENZA A <td><content ID="[id number]">INFLUENZA A & B 07/26 Bon & B AG AG (RAPID 05:18:00 AM [facility] (RAPID TEST) TEST)</content></td><td>STAT</td><td>08/11/2019 [facility] 12:18 AM EST</td><td></td><td><paragraph Health styleCode="header">Results for this procedure are System in the <content Inc styleCode="[id number]">results section</content>.</paragraph></td> PROTHROMBIN PROTHROMBIN STAT 08/11/2019 08/11/2019 Bon TIME + INR TIME + INR 12:01 AM 05:01:00 AM [facility] D DIMER D DIMER STAT 08/11/2019 08/11/2019 Francisco Javier n 12:01 AM 05:01:00 AM Sec ours [facility] CBC WITH CBC WITH STAT 08/11/2019 08/11/2019 Bon AUTOMATED DIFF AUTOMATED DIFF 12:01 AM 05:01:00 AM [facility] PTT PTT STAT 08/11/2019 08/11/2019 Francisco Javier n 12:01 AM 05:01:00 AM Sec ours [facility] TROPONIN I TROPONIN I STAT 08/11/2019 08/11/2019 Bon 12:01 AM 05:01:00 AM Sec ours [facility] METABOLIC METABOLIC STAT 08/11/2019 08/11/2019 Bon PANEL, PANEL, 12:01 AM 05:01:00 AM Sec ours COMPREHENSIVE COMPREHENSIVE [facility] MAGNESIUM MAGNESIUM STAT 08/11/2019 08/11/2019 Bon 12:01 AM 05:01:00 AM Sec ours [facility] LITHIUM LITHIUM STAT 08/11/2019 08/11/2019 Francisco Javier n 12:01 AM 05:01:00 AM Sec ours [facility] LACTIC ACID LACTIC ACID STAT 08/11/2019 08/11/2019 Bon 12:01 AM 05:01:00 AM Sec ours [facility] BNP BNP STAT 08/11/2019 08/11/2019 Francisco Javier n 12:01 AM 05:01:00 AM Sec ours [facility] RT--OXYGEN RT--OXYGEN STAT 08/10/2019 08/11/2019 Bon CANNULA CANNULA 11:51 PM 04:51:27 AM Sec ours EST EST Bela [facility] [facility] EKG, 12 LEAD, EKG, 12 LEAD, STAT 08/10/2019 0 Bon INITIAL INITIAL 10:14 PM 03:14:27 AM Sec ours EST EST [facility] XR SMALL BOWEL XR SMALL BOWEL Routine 08/02/2018 Morbid 019 Morbid Bon SERIES SERIES 11:01 AM obesity 04:01:14 PM obesity Sec ours EST (HCC) EST (HCC) [facility] Morbid obesity (HCC) CBC WITH AUTOMATED CBC WITH STAT 07/12/2018 9 [facility] DIFF AUTOMATED DIFF 12:40 AM EST 05:40:00 AM [facility] [employer] [facility] I nc TROPONIN I TROPONIN I STAT 07/12/2018 07/12/2018 [facility] 12:40 AM EST 05:40:00 AM [facility] [employer] [facility] I nc METABOLIC PANEL, METABOLIC PANEL, STAT 07/12/2018 [facility] COMPREHENSIVE COMPREHENSIVE 12:40 AM EST 05:40:0 0 AM [facility] [employer] [facility] I nc MAGNESIUM MAGNESIUM STAT 07/12/2018 07/12/2018 [facility] 12:40 AM EST 05:40:00 AM [facility] [employer] [facility] I nc RT--OXYGEN CANNULA RT--OXYGEN STAT 07/12/2018 019 [facility] CANNULA 12:21 AM EST 05:21:15 AM [facility] [employer] System I nc Results ID Date Data Source [id number] 03/04/2020 09:50:00 AM EDT [facility] Name Value Range Interpretation Description Data Sup porting Code Source(s) Document(s ) SARS [facility] coronavirus 2 RNA This lab was ordered by KANG moy [facility] and reported by [facility]. ID Date Data Source [id number] 03/02/2020 12:15:00 PM EDT [facility] Name Value Range Interpretation Description Data Sup porting Code Source(s) Document(s ) SARS [facility] coronavirus 2 RNA This lab was ordered by KANG FRANCISCO and reported by [facility]. ID Date Data Source [id number] 02/27/2020 09:15:00 AM EDT [facility] Name Value Range Interpretation Description Data Sup porting Code Source(s) Document(s ) SARS [facility] coronavirus 2 RNA This lab was ordered by [facility] and reported by [facility]. ID Date Data Source [id number] 02/23/2020 11:40:00 AM EDT [facility] Name Value Range Interpretation Description Data Sup porting Code Source(s) Document(s ) SARS [facility] coronavirus 2 RNA This lab was ordered by [facility] and reported by [facility]. ID Date Data Source [id number] 02/19/2020 09:56:00 AM EDT [facility] Name Value Range Interpretation Description Data Sup porting Code Source(s) Document(s ) SARS [facility] coronavirus 2 RNA This lab was ordered by [facility] and reported by [facility]. ID Date Data Source [id number] 02/16/2020 08:40:00 AM EDT [facility] Name Value Range Interpretation Description Data Sup porting Code Source(s) Document(s ) SARS [facility] coronavirus 2 RNA This lab was ordered by [facility] and reported by [facility]. ID Date Data Source [id number] 02/13/2020 10:05:00 AM EDT [facility] Name Value Range Interpretation Description Data Sup porting Code Source(s) Document(s ) SARS [facility] coronavirus 2 RNA This lab was ordered by [facility] and reported by [facility]. ID Date Data Source [id number] 02/09/2020 10:25:00 AM EDT [facility] Name Value Range Interpretation Description Data Sup porting Code Source(s) Document(s ) SARS [facility] coronavirus 2 RNA This lab was ordered by [facility] and reported by [facility]. ID Date Data Source [id number] 01/25/2020 09:20:00 AM EDT [facility] Name Value Range Interpretation Description Data Sup porting Code Source(s) Document(s ) 2019 Novel [facility] Coronavirus RNA Interpretation Unspecified Specimen Qualitative CATA Probe Detection This lab was ordered by [place] [id number] and reported by [facility]. ID Date Data Source [id number] 12/25/2019 05:54:30 PM EDT [facility] Name Value Range Interpretation Description Data Sup porting Code Source(s) Document(s ) [place] 0.38 0.6-1.2 Below low normal [facility] [Moles/volu MMOL/L [facility]] in Hospital Serum or Plasma ID Date Data Source [id number] 12/23/2019 01:50:56 PM EDT [facility] Discharge SummaryPatient: Maxwell mackey Sex: male DOA: 12/05/2019Date of : 1970 A ge: 49 y.o. LOS: LOS: 3 daysAdmit Date: 12/05/2019Discharge Date: 12/08/2019 Admission Diagnoses: Encephalopathy acute [G93.40];Kss-jwzo-rryqqvj adversereactio n to medication [T88.7XXA];Ncr-fvhk-lyexqen adverse reaction tomedication [T88.7XXA] Discharge Diagnoses: #1 toxic encephalopathy secondary to lithium, #2 severebipolar 1 diseaseProblem List as of 12/08/2019 Date Reviewed: 07/21/2019 Codes Class No hyun - Resolved Depression ICD-10-CM: F32.9ICD-9-CM: 311 07/20/2018 - Present Neuropathic pain of shoulder ICD-10-CM: M79.2ICD-9-CM: 354.9 12/29/2013 - Present Encephalopathy acute ICD-10-CM: G93.40ICD-9-CM: 348.30 12/05/2019 - Pres ent * (Principal) Adverse drug reaction, initial encounter ICD-10-CM: T50.905AICD -9-CM: E947.9 12/05/2019 - Present Jrl-cczu-tdpnkgh adverse reaction to med ication ICD-10-CM: T88.3SYQKCF-1-BF: 995.20 12/05/2019 - Present Bipolar disorder wit h severe depression (HCC) ICD-10-CM: F31.4ICD-9-CM: 296.53 10/29/2019 - Presen t Mixed anxiety and depressive disorder ICD-10-CM: F41.8ICD-9-CM: 300.4 09/04/19 20 - Present Vitamin D deficiency ICD-10-CM: E55.9ICD-9-CM: 268.9 09/04/2019 - Presen t Anxiety ICD-10-CM: F41.9ICD-9-CM: 300.00 07/21/2019 - Present Bipolar disorder (HC C) ICD-10-CM: F31.9ICD-9-CM: 296.80 07/21/2019 - Present Depressive disorder ICD-10-CM: F32.9ICD-9-CM: 311 07/21/2019 - Present Status post gastric bypass for o besity ICD-10-CM: Z98.84ICD-9-CM: V45.86 07/21/2019 - Present Morbid obesity (HCC) ICD-10-CM: E66.01ICD-9-CM: 278.01 07/21/2019 - Present Severe obesity (HCC) ICD-10-CM : E66.01ICD-9-CM: 278.01 07/19/2018 - Present Spells ICD-10-CM: [id number]-FD: IMO00 01 04/08/2016 - Present Seizure disorder (HCC) ICD-10-CM: G40.909ICD-9-CM: 345.90 04/30/2014 - Present Insomnia ICD-10-CM: G47.00ICD-9-CM: 780.52 11/04/2013 - Pres ent H/O gastric bypass ICD-10-CM: Z98.84ICD-9-CM: V45.86 06/12/2013 - Pre sent RESOLVED: Acute coronary syndrome (HCC) ICD-10-CM: I24.9ICD-9-CM: 411.1 03/13/20 15 - 03/14/2015Discharge Condition: FairHospital Course: This 49-year-old ma rried male was admitted via the emergencyroom where he presented with a history of rec urrent falling episodes evidence ofmemory gaps, and laboratory evidence of elevate d serum lithium. Patient wasstarted on intravenous hydration and showed rather dramatic improvement overseveral days. Psychiatric consultation obtained with r ecommendation the patientcontinue on chronic regimen of antidepressants etc. Patient to be closelyfollowed by this examiner. Patient awaits ECT treatment currently n ot availablesecondary to [facility]-19 pandemicConsults: Neurology and Psychiat rySignificant Diagnostic Studies: labs: Microbiology: , radiology: and EEGDisc harge Medications: @DISCHARGEMEDLIST@Activity: Activity as tolerated and PT/OT per Home HealthDiet: Regular DietWound Care: None neededFollo w-up:to follow in office in one weekRitika Canas MD Name Value Range Interpretation Code Description Data Melani rce(s) Supporting Document(s ) ID Date Data Source [id number] 12/09/2019 02:14:04 PM EDT [facility] referral made. Walker order faxed t o [facility].[place] [facility] and [facility] do NOT acc ept pts insurance.Faxed to Moriah at [facility] at FAX [phone]. She reports they ne ed to get authfor walker. Have instucted pt to buy own walker IF not authorized.He i s agreeable to buying walker if needs to.Care Management InterventionsPCP Verified by CM: YesTransition of Care Consult (CM Consult): [facility] Home Car e: YesCurrent Support Network: Own Home, Lives with SpouseThe Patient and/or Prachi ent Human Service Coordinator was Provided with a Choice of Providerand Agrees with the Discharge Plan?: YesFreedom of Choice List was Provided with Basic Dialogue that Suppor ts thePatient's Individualized Plan of Care/Goals, Treatment Preferences and Sh aresthe Quality Data Associated with the Providers?: YesVeteran Resource Informat ion Provided?: RefusedDischarge LocationDischarge Placement: Home with [facility](ACCEPTED BY [facility])Pt is discharged , picking him up. reports she has phone number tomake pt a follow up psych appt. [facility] to visit. will buy walker if not able to get thru [facility].Post dc note 12/08[employer] reports 50% copay - they lef t message on 's phone.I also, left a message with my call back number for any questions. hadreported to me she planned on buying a walker and would ret urn if insurance paidfor one. Name Value Range Interpretation Code Description Data Melani rce(s) Supporting Document(s ) ID Date Data Source [id number] 12/08/2019 03:06:17 PM EDT [facility] I have reviewed discharge instructions w ith the patient. The patient verbalizedunderstanding.Discussed with t he patient and all questioned fully answered. He will call me ifany problems arise.If you experience chest pain call [address] yourself.Patient armband removed a nd shredded. IV removed and discharged home stable. Name Value Range Interpretation Code Description Data Melani rce(s) Supporting Document(s ) ID Date Data Source [id number] 12/08/2019 03:02:56 PM EDT [facility] Per your note, pt with acute encephalopa thy and toxic Serum [place] level.Please specify the type of encephalopathy in yo ur progress notes: Toxic encephalopathy due to lithium Metabolic encephalopathy due to Other cause (please specify) Clinically unable to determine UnknownPLEASE DOCUM ENT ANY ADDITIONAL DIAGNOSES AND/OR SPECIFICITY IN THE PROGRESSNOTES AND/OR DISCHARGE SUMMARY. Name Value Range Interpretation Code Description Data Melani rce(s) Supporting Document(s ) ID Date Data Source [id number] 12/08/2019 02:40:45 PM EDT [facility] Problem: SuicideGoal: *STG: Remains safe in hospital12/08/2019 1440 by Ru Mosher: Resolved/Met12/08/20191438 by Ru Mosher: Progressing Towards GoalGoal: *STG: Seeks staff when feeling s of self harm or harm towards others arise12/08/2019 1440 by Ru Mosher : Resolved/Met12/08/2019 143 by Ru Mosher: Progressing Towards GoalGoa l: *STG: Attends activities and groups12/08/2019 1440 by Anup Mosher e: Resolved/Met12/08/2019 143 by Ru Mosher: Progressing Towards GoalGoa l: *STG: Verbalizes alternative ways of dealing with maladaptivefeelings/behavio rs12/08/2019 1440 by Ru Mosher: Resolved/Met12/08/2019 143 by Glenys Mosher Outcome: Progressing Towards GoalGoal: *STG/LTG: Complies with medication thera py12/08/2019 1440 by Basilio Moshercome: Resolved/Met12/08/2019 1439 by Glenys Mosher Outcome: Progressing Towards GoalGoal: *STG/LTG: No longer expresses self destr uctive or suicidal thoughts12/08/2019 1440 by Basilio Moshercome: Resolved/Met12/08/2019 1439 by Basilio Moshercome: Progressing Towards GoalGoal: *LTG: Identifies myDocket12/08/2019 1440 by Basilio Moshercome: Resolved/Met12/08/2019 1439 by Ru Mosher: Progressing Towards GoalGoal: *LTG: Develops proact sarah suicide prevention plan12/08/2019 1440 by Ru Mosher: Resolved/Met12/08/2019 1439 by Basilio Moshercome: Progressing Towards GoalGoal: Interventions12/08/2019 1440 by Ru Mosher: Resolved/Met12/08/2019 1439 by Glenys Mosher Outcome: Progressing Towards GoalProblem: Patient Education: Go to Patient Educati on ActivityGoal: Patient/Family Education12/08/2019 1440 by Basilio Mosher come: Resolved/Met12/08/2019 1439 by Ru Mosher: Progressing Towards GoalPro blem: Falls - Risk ofGoal: *Absence of FallsDescription: Document Carmen Fall R isk and appropriate interventions in [facility].12/08/2019 1440 by Divya Moshertcome: Resolved/MetNote: Fall Risk Interventions:Mobility Interventions: Be d/chair exit alarmMentation Interventions: Door open when patient unattendedMedicat ion Interventions: Assess postural VS orthostatic hypotension, Patient tocall before getting OOBElimination Interventions: Bed/chair exit alarm, Call light in reac h, Stay WithMe (per policy)History of Falls Interventions: Bed/chair exit alarm, Con sult care managementfor discharge planning, Evaluate medications/consider consulting pharmacy, Roomclose to nurse's station12/08/2019 1439 by Ashish Mosher me: Progressing Towards GoalNote: Fall Risk Interventions:Mobility Interventions: Be d/chair exit alarmMentation Interventions: Door open when patient unattendedMedicat ion Interventions: Assess postural VS orthostatic hypotension, Patient tocall before getting OOBElimination Interventions: Bed/chair exit alarm, Call light in reac h, Stay WithMe (per policy)History of Falls Interventions: Bed/chair exit alarm, Con sult care managementfor discharge planning, Evaluate medications/consider consulting pharmacy, Roomclose to nurse's stationProblem: Patient Education: Go to Patient Education ActivityGoal: Patient/Family Education12/08/2019 1440 b Ru Perkins: Resolved/Met12/08/20191438 by Ru Mosher: Progressing T darrel GoalProblem: Pressure Injury - Risk ofGoal: *Prevention of pressure injuryDe scription: Document Harsh Scale and appropriate interventions in [facility] t.12/08/2019 1440 by Ru Mosher: Resolved/MetNote: Pressure Injury Interv entions:Sensory Interventions: Assess changes in LOC, Float heels, Check visual cues f orpain, Minimize linen layersMoisture Interventions: Check for incontinence Q2 hours and as needed,Internal/External urinary devices, Absorbent underpadsActi vity Interventions: Pressure redistribution bed/mattress(bed type), PT/OTevaluationM obility Interventions: Float heels, Pressure redistribution bed/mattress (bedtype), T urn and reposition approx. every two hours(pillow and wedges)Nutrition Interv entions: Offer support with meals,snacks and hydration, Documentfood/fluid/supplement intakeFriction and Shear Interventions: HOB 30 degrees or less, Lift sheet, Minimize layers12/08/20191438 by Ru Mosher: Progressing Towards GoalNote: Pressure I njury Interventions:Sensory Interventions: Assess changes in LOC, Float heels, Chec k visual cues forpain, Minimize linen layersMoisture Interventions: Check for incontinence Q2 hours and as needed,Internal/External urinary devices , Absorbent underpadsActivity Interventions: Pressure redistribution bed/mattress(bed type), PT/OTevaluationMobility Interventions: Float heels, Pressure red istribution bed/mattress (bedtype), Turn and reposition approx. every two hours(jacque w and wedges)Nutrition Interventions: Offer support with meals,snacks and hydration, Documentfood/fluid/supplement intakeFriction and Shear Interventions: HOB 30 degrees or less, Lift sheet, MinimizelayersProblem: Patient Education: Go to Patient Educati on ActivityGoal: Patient/Family Education12/08/2019 1440 by Basilio Mosher come: Resolved/Met12/08/2019 1439 by Ru Mosher: Progressing Towards GoalPro blem: HypertensionGoal: *Blood pressure within specified parameters12/08/2019 144 0 by Ru Mosher: Resolved/Met12/08/2019 1439 by Ru Mosher: Progressing T owards GoalGoal: *Fluid volume balance12/08/2019 1440 by Ashish Mosher me: Resolved/Met12/08/2019 1439 by Ru Mosher: Progressing Towards GoalGoa l: *Labs within defined limits12/08/2019 1440 by Ru Mosher: Resolved/Met 020 1439 by Ru Mosher: Progressing Towards GoalProblem: Patient Education: Go to Patient Education ActivityGoal: Patient/Family Education12/08/2019 1440 b y Ru Mosher: Resolved/Met12/08/2019 1439 by Ru Mosher: Progressing T owards GoalProblem: Fluid Volume - Risk of, ImbalancedGoal: *Balanced intake and out put12/08/2019 1440 by Ru Mosher: Resolved/Met12/08/2019 1439 by Glenys Mosher Outcome: Progressing Towards GoalProblem: Patient Education: Go to Patient Educati on ActivityGoal: Patient/Family Education12/08/2019 1440 by Basilio Mosher come: Resolved/Met12/08/2019 1439 by Ru Mosher: Progressing Towards GoalPro blem: Patient Education: Go to Patient Education ActivityGoal: Patient/Family E ducation12/08/2019 1440 by Ru Mosher: Resolved/Met12/08/2019 1439 by Glenys Mosher Outcome: Progressing Towards Goal Name Value Range Interpretation Code Description Data Melani rce(s) Supporting Document(s ) ID Date Data Source [id number] 12/08/2019 02:40:17 PM EDT [facility] Problem: SuicideGoal: *STG: Remains safe in hospitalOutcome: Progressing Towards GoalGoal: *STG: Seeks staff when feeling s of self harm or harm towards others ariseOutcome: Progressing Towards GoalGo al: *STG: Attends activities and groupsOutcome: Progressing Towards GoalG oal: *STG: Verbalizes alternative ways of dealing with maladaptivefeelings/behavio rsOutcome: Progressing Towards GoalGoal: *STG/LTG: Complies with medication thera pyOutcome: Progressing Towards GoalGoal: *STG/LTG: No longer expresses self destr uctive or suicidal thoughtsOutcome: Progressing Towards GoalGoal: *LTG: Ced ntifies available community resourcesOutcome: Progressing Towards GoalGoal: *LTG: Dev elops proactive suicide prevention planOutcome: Progressing Towards GoalGoa l: InterventionsOutcome: Progressing Towards GoalProblem: Patient Education: Go to Pa tient Education ActivityGoal: Patient/Family EducationOutcome: Progressing Towards Go alProblem: Falls - Risk ofGoal: *Absence of FallsDescription: Document Carmen Fall R isk and appropriate interventions in theflowsheet.Outcome: Progressing Toward s GoalNote: Fall Risk Interventions:Mobility Interventions: Bed/chair exit alarmMenta tion Interventions: Door open when patient unattendedMedication Interventions: Asse ss postural VS orthostatic hypotension, Patient tocall before getting OOBElimina tion Interventions: Bed/chair exit alarm, Call light in reach, Stay WithMe (per ronen boston)History of Falls Interventions: Bed/chair exit alarm, Consult care manag ementfor discharge planning, Evaluate medications/consider consulting pharmacy , Roomclose to nurse's stationProblem: Patient Education: Go to Patient Educati on ActivityGoal: Patient/Family EducationOutcome: Progressing Towards Go alProblem: Pressure Injury - Risk ofGoal: *Prevention of pressure injuryDescriptio n: Document Harsh Scale and appropriate interventions in theflowsheet.Outcome: P rogressing Towards GoalNote: Pressure Injury Interventions:Sensory Interventions: Ass ess changes in LOC, Float heels, Check visual cues forpain, Minimize linen layersMoist ure Interventions: Check for incontinence Q2 hours and as needed,Internal/External ur inary devices, Absorbent underpadsActivity Interventions: Pressure redistribution b ed/mattress(bed type), PT/OTevaluationMobility Interventions: F loat heels, Pressure redistribution bed/mattress (bedtype), Turn and reposit ion approx. every two hours(pillow and wedges)Nutrition Interventions: Offer gallardo pport with meals,snacks and hydration, Documentfood/fluid/supplement intakeFric tion and Shear Interventions: HOB 30 degrees or less, Lift sheet, MinimizelayersProbl em: Patient Education: Go to Patient Education ActivityGoal: Patient/Family E ducationOutcome: Progressing Towards GoalProblem: HypertensionGoal: *Blood pr essure within specified parametersOutcome: Progressing Towards GoalGoal: *Fluid vol ume balanceOutcome: Progressing Towards GoalGoal: *Labs within defined limitsOut come: Progressing Towards GoalProblem: Patient Education: Go to Patient Educati on ActivityGoal: Patient/Family EducationOutcome: Progressing Towards Go alProblem: Fluid Volume - Risk of, ImbalancedGoal: *Balanced intake and out putOutcome: Progressing Towards GoalProblem: Patient Education: Go to Patient Educati on ActivityGoal: Patient/Family EducationOutcome: Progressing Towards Go alProblem: Patient Education: Go to Patient Education ActivityGoal: Patient/Family E ducationOutcome: Progressing Towards Goal Name Value Range Interpretation Code Description Data Melani rce(s) Supporting Document(s ) ID Date Data Source [id number] 12/08/2019 01:18:54 PM EDT [facility] General Daily Progress NoteAdmit Date: Hospital day: .tdSubjective:Psycgm Neuro,and PT assessments reviewed. Patie nt qualifies for discharge. Wifecalled, will bring in clothes. New medical regimen di scussed with the . Willneed [place] level later this week.Current Facility-Adminis tered MedicationsMedication Dose Route Frequency [START ON 12/09/2019] OLANZapi ne (ZyPREXA) tablet 5 mg 5 mg Oral DAILY losartan (COZAAR) tablet 50 mg 50 mg Or al DAILY lithium carbonate SR (LITHOBID) tablet 300 mg 300 mg Oral BID amitript yline (ELAVIL) tablet 200 mg 200 mg Oral QHS clonazePAM (KlonoPIN) tablet 0.5 mg 0. 5 mg Oral TIDObjective:Patient Vitals for the past 8 hrs: BP Temp Pulse Resp OzJ65612/07 0816 - - - - 96 %12/08/19 0716 128/88 98.1 F (36.7 C) 80 18 96 %No intake/ou tput data recorded.12/05 1901 - 12/07 0700In: 3040 [P.O.:2040; I.V.:1000]Out: 900 [Uri ne:900] Physical Exam: General: WD, obese. Much more alert, cooperative, no acute distress. HEENT: NC, Atraumatic. PERRLA, anicteric sclerae. Lungs: CTA Bilaterally. No Wheezing/Rhonchi/Rales. He art: Regular rhythm, No murmur, No Rubs, No Gallops. Abdomen: Soft, Non diste nded, Non tender. +Bowel sounds. Extremities: No c/c/e. Psych: Not anxious or agitated. Neurologic: No acute neurological defici t.Data ReviewRecent Results (from the past 24 hour(s))GLUCOSE, POC Collection Time: 11:35 AMResult Value Ref Range Glucose, bedside 132 (H) 65 - 110 MG/DL Xr Pelv Ap OnlyResult Date: 12/05/2019PELVIS one view. History: Trauma The study is s uboptimal due to the patient'sbody habitus. There is no evidence of fracture, disloc ation, subluxation, boneerosion or arthritis.IMPRESSION: Grossly normal anastacio dy.Mri Brain Wo ContResult Date: 12/05/2019History: ams Technique: An MRI of the brain was performed utilizing sagittal T1;coronal FLAIR; axial T1, T2, FLAIR, S WI, gradient echo, and diffusion sequences.Comparison: MRI of the brain p erformed 01/13/[address] scan of the braindated 12/05/2019. Findings: The vent ricles are unremarkable in size configurationfor patient's age. The four th ventricle is midline. No acute infarct,hemorrhage, or mass is identifie d. No extra-axial collection or midline shift isidentified. The paranasal sinuses appe ar well aerated. The major flow-voidsappear preserved. The mastoid air cells appear well aerated. There is aretention cyst versus polyp in the right maxillary sinus.Impre ssion: No acute infarct, hemorrhage, or mass is identified.Ct Head Wo ContResult Date : 12/05/2019CT HEAD W/O CONTRAST PRIOR: Multiple: Most recent October 29, 2019: "No a cuteintracranial pathology seen." HISTORY: Limited to that provided by the emergenc ydepartment at the time of this examination; BIBA for fall in the middle of thenight while going to bathroom C/p left hip pain? TECHNICAL FACTORS: Spiralimages from the base of the skull to the vertex were obtained withoutintravenous contrast. Fr om the data set coronal and sagittal reconstructionimages were created on an independent workstation. Utilizing manufactureralgorithms the examination w as performed to optimize image quality whileutilizing the lowest possible ioniz ing radiation dose. One or more of thefollowing doses reduction techniques was used: Decreasing the mA and or kV,automatic exposure control and iterat sarah reconstruction algorithm. FINDINGS: B/Lmaxillary sinus polyposis is identifi ed. The remainder of the visualizedsinuses, orbits and osseous calvarium are unremar kable. The hinojosa and whitematter attenuation of the cerebellum and cerebral hemispher es is unremarkableand no intra / extra-axial hematoma, fluid / mass / mass effect nor midlineshift is seen upon the sulci or ventricular system.IMPRESSION: 1. B/L ma xillary sinus polyposis. 2. Otherwise unremarkablenon-contrast enhanced CT of the brain.Xr Chest PortResult Date: 12/05/2019CHEST 1 view (s) HISTORY: Chest pain. COMPARISON: 10/29/2019. The patient isrotated towards the right and there is a poor inspiratory effort. There is apossible left basal infiltrate. The rem ainder of the lungs, pleura, mediastinumand visualized bony thorax appear to be norm al. The left hilum is normal. Theright hilum is obscured. There may be borderline or mild cardiomegaly.IMPRESSSION: Poor inspiratory effort. Possible left basal infiltrate.Assessment:Principal Problem: Adverse drug reaction, initial encounter (12/05/2019)Active Problems: Encephalopathy acute (12/05/2019) Bcc-pklm-azmcwwq adve rse reaction to medication (12/05/2019)Plan: day of discharge. Name Value Range Interpretation Code Description Data Melani rce(s) Supporting Document(s ) ID Date Data Source [id number] 12/08/2019 12:09:30 PM EDT [facility] Problem: Mobility Impaired (Adult and Pe diatric)Goal: *Therapy Goal (Edit Goal, Insert Text)Description: Physical Therap y Goals 6 visits.Initiated . Patient will move from supine to sit and sit to supine , scoot up and downand roll side to side in bed with modified indepe ndence within 6 visits.2. Patient will transfer from bed to chair and chair to bed with modifiedindependence using RW within 6 visits.3. Patient will perform sit to stand with modified independence within 6visits.4. Patient will ambulate with m odified independence for 100 feet with RW within6 visits.Note:PHYSICAL THERAPY ROSIO LUATIONPatient: Maxwell Bray (49 y.o. male)Date: 12/08/2019Primary Diagnosis: E ncephalopathy acute [G93.40]Onm-lxlt-xzapsva adverse reaction to medication [T88.7XXA ]Etf-qatq-pzsiccu adverse reaction to medication [T88.7XXA]Precautions: Fall ASSESSMENT :Based on the objective data described below, the patient presents wi th decreasedendurance, decreased balance, decreased strength, flat affect, difficu lty withtransfers and difficulty with ambulation. Pt required SBA/CGA for willis sfers andambulation. Pt presented with shuffling gait, decreased step and strid e length.Pt left sitting in chair with all needs within reach.Patient will benefit from skilled intervention to address the above impairments.Patient's rehabilitati on potential is considered to be GoodFactors which may influence rehabilitation pothali tial include:[] None noted[] Mental ability/status[x] Medical condition[x] Home/family situation and support systems[x] Safety aw areness[] Pain tolerance/management[] Other:PLAN :Recommendations and Planned Interventions:[x] Bed Mobility Training [x] Jovita romuscularRe-Education[x] Transfer Training [] Orthoti c/ProstheticTraining[x] Gait Training [] M odalities[x] Therapeutic Exercises [] Edema Management/Control[ x] Therapeutic Activities [x] Patient and FamilyTraining/Educa tion[] Other (comment):Frequency/Duration: Patient wi ll be followed by physical therapy 4 times a weekto address goals.Discharge Recommend ations: Home HealthFurther Equipment Recommendations for Discharge: rolling w alkerSUBJECTIVE:Patient stated "I definitely wanna go home."OBJECTIVE DATA SUMMARY:Valerio avalos Medical History:Diagnosis Date Other unknown and unspecified cause of morbidi ty or mortality cardiac cath at [facility] approx 6-8 months ago Other unknown and unspeci fied cause of morbidity or mortality concussions Other unknown and unspecifie d cause of morbidity or mortality "periodic disorientation" Other unknown and unspec ified cause of morbidity or mortality anxiety Psychiatric disorder anxiety, depression Past Surgical History:Procedure Laterality Date ABDOMEN SURGERY PROC UNLISTED gastr ic bypass 2009 HX GASTRIC BYPASS roue-en-y HX ORTHOPAEDIC 1985 aarthroscopic knee dieter magi HX ORTHOPAEDIC 1990 broken footPrior Level of Function/Home Situation: Modifi ed independenceHome SituationHome Environment: Private residence(condo)# S teps to Enter: 0One/Two Story Residence: One storyLiving Alone: NoSupport Systems: ild(mary), Spouse/Significant Other/PartnerPatient Expects to be Disch arged to:: Private residenceCurrent DME Used/Available at Home: NoneCritical Beh avior:Neurologic State: AlertOrientation Level: Oriented Q7Jvdarlata: Appropriate for age attention/concentration;Follows commandsSafety/Judgement: Decreased awar eness of need for safety;Awareness ofenvironmentSkin:Skin Color: PinkSkin C ondition/Temp: Rash;WarmSkin Integrity: IntactStrength:Strength: Generally decre ased, functionalTone & Sensation:Tone: NormalSensation: IntactRange Of Motion:A ROM: Generally decreased, functionalPROM: Generally decreased, functionalFunctiona l Mobility:Bed Mobility:Supine to Sit: Stand-by assistanceSit to Supine: Stand- by assistanceScooting: Stand-by assistanceTransfers:Sit to Stand: Stand- by assistanceStand to Sit: Stand-by assistanceStand Pivot Transfers: Contact guard assistanceBed to Chair: Contact guard assistanceBalance:Sitting: IntactStandin g: Impaired;With supportStanding - Static: GoodStanding - Dynamic : FairAmbulation/ Gait Training/stair:GaitBase of Support: NarrowedSpeed/Alisa: SlowStep Length: Right shortened;Left shortenedGait Abnormalities: Decreased step clearanceA mbulation - Level of Assistance: Contact guard assistanceDistance (ft): 60 Feet ( ft)Assistive Device: Walker, rollingInterventions: Verbal cues;Safety awareness trainingPain:Pain Scale 1: Numeric (0 - 10)Pain Intensity 1: 0Activity Tole neda:GoodPlease refer to the flowsheet for vital signs taken during this treatment. After treatment:[x] Patient left in no apparent distress sitting up in chair [] Patient left in no apparent distress in bed[x] Call moffett lef t within reach[x] Nursing notified[] Caregiver present[] Bed a larm activatedCOMMUNICATION/EDUCATION:The patient's plan of care was discussed wit h: Registered Nurse.[x] Fall prevention education was provided and th e patient/caregiverindicated understanding.[x] Patient/family have participated as able in goal setting and plan ofcare.[] Patient/famil y agree to work toward stated goals and plan of care.[] Patient understands i ntent and goals of therapy, but is neutral abouthis/her participation.[] Valerio óscar is unable to participate in goal setting and plan of care.Thank you for t his referral.Pritesh Larandi Time Calculation: 14 mins Name Value Range Interpretation Code Description Data Melani rce(s) Supporting Document(s ) ID Date Data Source [id number] 12/08/2019 11:48:26 AM EDT [facility] Name Value Range Interpretation Description Data Sup porting Code Source(s) Document(s ) Glucose 132 MG/DL 65-110 Above high normal [facility] [Mass/volume] Judaism in Blood by Hospital Automated test strip ID Date Data Source [id number] 12/08/2019 10:35:45 AM EDT [facility] S/O Patient has shown improvement. He re ports that medications are helping him.He denies any side effectsHe denies any cecilia cidal thoughtsHe reports that he [facility] a [facility] 300 mg bid [place] level in two days Will increase Zyprexa 5 mg Will follow up as requested Name Value Range Interpretation Code Description Data Melani rce(s) Supporting Document(s ) ID Date Data Source [id number] 12/08/2019 07:28:52 AM EDT [facility] Bedside and Verbal shift change report g yesseniaen to TRAM Hurley (oncoming nurse) Annalise DE LEON RN (offgoing nurse). Repor t included the followinginformation SBAR, Kardex, MAR and Recent Results. Name Value Range Interpretation Code Description Data [facility] rce(s) Supporting Document(s ) ID Date Data Source [id number] 12/07/2019 08:26:02 PM EDT [facility] Problem: Falls - Risk ofGoal: *Absence o f FallsDescription: Document Carmen Fall Risk and appropriate interventions in theflow sheet.Outcome: Progressing Towards GoalNote: Fall Risk Interventions:Mobility Interve ntions: Utilize walker, cane, or other assistive device, Patientto call before getting OOBMentation Interventions: Door open when patient unattended, More frequentro unding, Room close to nurse's station, Toileting roundsMedication Interventions : Patient to call before getting OOBElimination Interventions: Call light in reach, Toileting schedule/hourly roundsHistory of Falls Interventions: Do or open when patient unattendedProblem: Pressure Injury - Risk ofGoal: *Preventi on of pressure injuryDescription: Document Harsh Scale and appropriate interventio ns in theflowsheet.Outcome: Progressing Towards GoalNote: Pressure Injury Interv entions:Sensory Interventions: Assess changes in LOC, Float heels, Check visual cues f orpain, Minimize linen layersMoisture Interventions: Check for incontinence Q2 hours and as needed,Internal/External urinary devices, Absorbent underpadsActi vity Interventions: Pressure redistribution bed/mattress(bed type), PT/OTevaluationM obility Interventions: Float heels, Pressure redistribution bed/mattress (bedtype), T urn and reposition approx. every two hours(pillow and wedges)Nutrition Interv entions: Offer support with meals,snacks and hydration, Documentfood/fluid/supplement intakeFriction and Shear Interventions: HOB 30 degrees or less, Lift sheet, Minimize layers Name Value Range Interpretation Code Description Data Melani rce(s) Supporting Document(s ) ID Date Data Source [id number] 12/07/2019 07:05:28 PM EDT [facility] Verbal shift change report given to Chandrakant Cox RN (oncoming nurse) by Steven Villalobos RN (offgoing nurse). Report inc luded the following information SBAR, Kardex,Intake/Output, MAR, Recent Result s and Cardiac Rhythm on telemetry. Name Value Range Interpretation Code Description Data Melani rce(s) Supporting Document(s ) ID Date Data Source [id number] 12/07/2019 01:30:56 PM EDT [facility] Trent Jacob MD[address], [address] [place] [address] [id number] Progress NotePatient: Maxwell Bray Sex: male DOA: 12/05/2019Date of : 1970 Age: 49 y.o. LOS: LOS: 2 daysSubjective:Feels back t o baselineEEG improved overnight in frequency, no epileptiform activityREVIE W OF SYSTEMS: NO CP, SOB, N,V,D, F,CCurrent Facility-Administered MedicationsMedicat ion Dose Route Frequency losartan (COZAAR) tablet 50 mg 50 mg Oral DAILY lithium carbonate SR (LITHOBID) tablet 300 mg 300 mg Oral BID amitriptyline (ELAVIL) tablet 200 mg 200 mg Oral QHS clonazePAM (KlonoPIN) tablet 0.5 mg 0.5 mg Oral TI D OLANZapine (ZyPREXA) tablet 2.5 mg 2.5 mg Oral DAILY 0.9% sodium chloride infusio n 100 mL/hr IntraVENous CONTINUOUS enoxaparin (LOVENOX) injection 40 mg 40 mg SubCUTAneous T23PBqiriwvsw:Visit VitalsBP 153/85 (BP 1 Location: Left arm, BP Prachi ent Position: At rest)Pulse 96Temp 98.7 F (37.1 C)Resp 20Ht 5' 5.75" (1.67 m)Wt 3 01 lb 1.6 oz (136.6 kg)SpO2 96%BMI 48.97 kg/m Body mass index is 48.97 kg/m .Patient V itals for the past 24 hrs: Temp Pulse Resp BP [id number]/07/19 1249 - 96 - 153/85 - 0 0956 98.7 F (37.1 C) 95 20 147/86 -12/07/19 0815 98.7 F (37.1 C) 95 20 1 46/89 96 %12/07/19 0807 98.8 F (37.1 C) 96 22 (!) 156/106 95 %12/07/19 0550 100.2 F (37.9 C) 95 20 (!) 150/93 94 %12/07/19 0120 - 95 18 164/90 95 %12/07/19 0054 98 F (36.7 C) 98 18 (!) 143/100 96 %12/06/19 2055 98.8 F (37.1 C) 95 15 143/90 95 % 12/06/19 2040 - - - - 95 %12/06/19 1547 99.6 F (37.6 C) 95 18 (!) 164/100 97 %GEN: A ppears stated ageEYES: conjunctiva normalHEENT: Normocephalic and atraumati cHEART: RRRLUNGS: ClearABDOMEN: soft NT/NDMental Status: Awake, alert and att entive. Fully oriented. Pres=TrumpCN: PERRL, EOMI, facial sensation symmetric to ligh t touch, no facial asymmetry,tongue midlineMotor: Moving all extremities wel l against resistanceSensory: Symmetric to light touch and coldReflexes: 2s bilater alGait: DeferredAll the patient's labs over the past 24 hours were reviewed both dur ing myinitial daily workflow process and at the time notated as "note time" in [facility]. (It is not time stamped separately in this workflow.) Select labs areliste d below.Lab/Data Reviewed:Recent Results (from the past 24 hour(s))METABOLIC PANE L, BASIC Collection Time: 12/07/19 4:40 AMResult Value Ref Range Sodium 138 136 - 145 mmol/L Potassium 3.5 3.5 - 5.1 mmol/L Chloride 106 98 - 107 mmol/L CO2 27 21 - 32 mmol/L Anion gap 10 10 - 20 mmol/L Glucose 140 (H) 74 - 106 mg/dL BUN 19 (H ) 7 - 18 mg/dL Creatinine 0.94 0.70 - 1.30 mg/dL GFR est AA >60 >60 ml/min/1.73m2 G FR est non-AA >60 >60 ml/min/1.73m2 Calcium 9.1 8.5 - 10.1 mg/dLCT Results (most rec ent):Results from Hospital Encounter encounter on 12/05/19CT HEAD WO CONT Eyal rative CT HEAD W/O CONTRASTPRIOR: Multiple: Most recent October 29, 2019: "No acute intra cranial pathologyseen."HISTORY: Limited to that provided by the emergency departmen t at the time ofthis examination; BIBA for fall in the middle of the night while go ing tobathroom C/p left hip pain?TECHNICAL FACTORS: Spiral images from the base of the skull to the vertex wereobtained without intravenous contrast. From the data set coronal and sagittalreconstruction images were created on an independent workstati on. Utilizingmanufacturer algorithms the examination was performed to optimize im age qualitywhile utilizing the lowest possible ionizing radiation dose. 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 The remainder of the visuali zedsinuses, orbits and osseous calvarium are unremarkable.The hinojosa and white matter a ttenuation of the cerebellum and cerebral hemispheresis unremarkable and no intra / extra-axial hematoma, fluid / mass / mass effectnor midline shift is seen upon the sulci or ventricular system. Impression IMPRESSION:1. B/L maxillary sinus polypo sis.2. Otherwise unremarkable non-contrast enhanced CT of the brain.MRI Results (mo st recent):Results from Hospital Encounter encounter on 12/05/19MRI BRAIN WO CONT N arrative History: amsTechnique: An MRI of the brain was performed utilizing sagittal T 1; coronalFLAIR; axial T1, T2, FLAIR, SWI, gradient echo, and diffusion sequences.C omparison: MRI of the brain performed 01/13/[address] scan of the braindate d 12/05/2019.Findings: The ventricles are unremarkable in size configuration for p benny'bill. The fourth ventricle is midline. No acute infarct, hemorrhage, or mass is identified. No extra-axial collection or midline shift is identified. Theparanasa l sinuses appear well aerated. The major flow-voids appear preserved.The mastoid air cells appear well aerated. There is a retention cyst versuspolyp in the right maxillary sinus. 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 Seizure disorder ([facility]) G40.909 Spells [id number] Severe obesity (HCC) E66.01 Depression F32.9 Anxiety F41.9 Bipolar disorder (HCC) F31.9 Depressive disorder F32.9 Status post g astric bypass for obesity Z98.84 Morbid obesity (HCC) E66.01 Mixed anxiety and depressive disorder F41.8 Vitamin D deficiency E55.9 Bipolar disorder with severe depression ([facility]) F31.4 Encephalopathy acute G93.40 Adverse drug reaction, ini tial encounter T50.905A Oec-wnyr-zaktygi adverse reaction to medication T88.7XXA 49 year old male with pmh as stated above and now with AMS and generalizedweakness - m ost likely secondary to lithium toxicity.EEG w/ mild to mod gen slow - improved to mi ld.Ammonia normal.MRI Brain normal. Plan:- d/c EEG- no further inpatient neurologic w/u or tx requiredMedical Decision Making Amount and/or Complexity of Data Reviewe dClinical lab tests: reviewed and orderedTests in the radiology section of CPT : ordered and reviewedDecide to obtain previous medical records or to obtain hi story from someoneother than the patient: yesObtain history from someone other jerzy n the patient: yesReview and summarize past medical records: yesDiscuss the patient with other providers: yesIndependent visualization of images, tracings, or sp ecimens: yes Name Value Range Interpretation Code Description Data Melani rce(s) Supporting Document(s ) ID Date Data Source [id number] 12/07/2019 01:02:36 PM EDT [facility] - [facility] Pt seen and discussed with Dr Canas .Pt is tearful flat and denies any suicidal thoughts , has been depressed withlithiu m on hold , No Vraylar and he is unable to get his ECT at [facility] And no w will be with [facility] with Dr Womack his lithium level is un therape utic range I will start on lithium , add 2.5mg of zyprexa and lower his klonopin And increase his elavil to 200 mg HSWill get pt followed up with Psychiatry Name Value Range Interpretation Code Description Data Melani rce(s) Supporting Document(s ) ID Date Data Source [id number] 12/07/2019 12:52:32 PM EDT [facility] Problem: Fluid Volume - Risk of, Imbalan cedGoal: *Balanced intake and outputOutcome: Progressing Towards GoalProblem: Patient Education: Go to Patient Education ActivityGoal: Patient/Family EducationOu tcome: Progressing Towards Goal Name Value Range Interpretation Code Description Data Melani rce(s) Supporting Document(s ) ID Date Data Source [id number] 12/07/2019 12:45:20 PM EDT [facility] Problem: Falls - Risk ofGoal: *Absence o f FallsDescription: Document Carmen Fall Risk and appropriate interventions in theflow sheet.Outcome: Progressing Towards GoalNote: Fall Risk Interventions:Mentation Interv entions: Bed/chair exit alarm, Adequate sleep, hydration, paincontrol, Door open when patient unattended, Evaluate medications/considerconsulting pharmacy, More frequent rounding, Increase mobility, Toiletingrounds, Update white board, Viv m close to nurse's stationMedication Interventions: Bed/chair exit alarm, Rosio luate medications/considerconsulting pharmacyElimination Interventions: Call light in reach, Bed/chair exit alarm, Patient tocall for help with toileting needs, To ilet paper/wipes in reach, Toiletingschedule/hourly roundsHistory o f Falls Interventions: Consult care management for discharge planning,Bed/ch air exit alarm, Door open when patient unattended, Evaluatemedications/consider consulting pharmacyProblem: Patient Education: Go to Patient Education Activ ityGoal: Patient/Family EducationOutcome: Progressing Towards GoalProblem: Pressur e Injury - Risk ofGoal: *Prevention of pressure injuryDescription: Document Bra den Scale and appropriate interventions in thedoctors hospitalsheet.Outcome: Progressing Toward s GoalNote: Pressure Injury Interventions:Sensory Interventions: Ass ess changes in LOC, Discuss PT/OT consult withprovider, Float heels, Keep linens d ry and wrinkle-free, Maintain/enhanceactivity level, Minimize linen layers, Pressure r edistribution bed/mattress (bedtype)Moisture Interventions: Absorbent underpads, Appl y protective barrier, creamsand emollients, Check for incontinence Q2 hours and as n eeded, Internal/Externalurinary devices, Maintain skin hydration (lotion/cream), Minimize layers,Moisture barrier, Offer toileting Q_hrActivity Interventions: Pr essure redistribution bed/mattress(bed type)Mobility Interventions: Float heels , Pressure redistribution bed/mattress (bedtype)Nutrition Interventions: Offer support with meals,snacks and hydration, Discussnutritional consult with provider , Document food/fluid/supplement intakeFriction and Shear Interventions: Minimize layers, Apply protective barrier,creams and emollientsProblem: Valerio cantrell Education: Go to Patient Education ActivityGoal: Patient/Family EducationOu tcome: Progressing Towards GoalProblem: HypertensionGoal: *Blood pressure within specified parametersOutcome: Progressing Towards GoalGoal: *Fluid volume balanceO utcome: Progressing Towards GoalGoal: *Labs within defined limitsOutcome: Progressin g Towards Goal Name Value Range Interpretation Code Description Data Melani rce(s) Supporting Document(s ) ID Date Data Source [id number] 12/07/2019 12:24:47 PM EDT [facility] General Daily Progress NoteAdmit Date: Hospital day: .tdSubjective:Patient more responsive today, tearful , express ing desire to see his andson. EEG study completed. Hungry! Await PT assessment. To advance diet. Majorconcern in keeping current regimen of high dose amitriptyli ne which was possiblyalso contributing to adverse symptoms necessitating admission . BP high despiteLasix iv.Current Facility-Administered MedicationsMedicat ion Dose Route Frequency clonazePAM (KlonoPIN) tablet 1 mg 1 mg Oral BID a mitriptyline (ELAVIL) tablet 150 mg 150 mg Oral QHS 0.9% sodium chloride infusion 100 mL/hr IntraVENous CONTINUOUS enoxaparin (LOVENOX) injection 40 mg 40 mg SubCUTA neous H37GIyjyerwrh:Patient Vitals for the past 8 hrs: BP Temp Pulse Resp [id number]/06 0956 147/86 98.7 F (37.1 C) 95 20 -12/07/19 0815 146/89 98.7 F (37.1 C) 95 20 96 %12/07/19 0807 (!) 156/106 98.8 F (37.1 C) 96 22 95 %12/07/19 0550 (!) 15 0/93 100.2 F (37.9 C) 95 20 94 %No intake/output data recorded.12/04 1901 - 12/06 0700In: 1000 [I.V.:1000]Out: - Physical Exam: General: WD, ob beau. Alert, cooperative, tearful HEENT: NC, Atraumatic. PERRLA, anicter ic sclerae. Lungs: CTA Bilaterally. No Wheezing/Rhonchi/Rales. Heart: Regular rhythm, No murmur, No Rubs, No Gallops. Abdo men: Soft, Non distended, Non tender. +Bowel sounds. Extremities: No c/ c/e. Psych: Not anxious or agitated. Neurologic: No acute neur ological deficit.Data ReviewRecent Results (from the past 24 hour(s))METABOLIC PANE L, BASIC Collection Time: 12/07/19 4:40 AMResult Value Ref Range Sodium 138 136 - 145 mmol/L Potassium 3.5 3.5 - 5.1 mmol/L Chloride 106 98 - 107 mmol/L CO2 27 21 - 32 mmol/L Anion gap 10 10 - 20 mmol/L Glucose 140 (H) 74 - 106 mg/dL BUN 19 (H ) 7 - 18 mg/dL Creatinine 0.94 0.70 - 1.30 mg/dL GFR est AA >60 >60 ml/min/1.73m2 G FR est non-AA >60 >60 ml/min/1.73m2 Calcium 9.1 8.5 - 10.1 mg/dL Xr Pelv Ap OnlyResu lt Date: 12/05/2019PELVIS one view. History: Trauma The study is suboptimal due to th e patient'sbody habitus. There is no evidence of fracture, dislocation, subluxation, b oneerosion or arthritis.IMPRESSION: Grossly normal study.Mri Brain Wo ContResult Marlon e: 12/05/2019History: ams Technique: An MRI of the brain was performed utilizing sagitt al T1;coronal FLAIR; axial T1, T2, FLAIR, SWI, gradient echo, and diffusion sequen jaxon.Comparison: MRI of the brain performed 01/13/[address] scan of the braindate d 12/05/2019. Findings: The ventricles are unremarkable in size configurationfor pa tient's age. The fourth ventricle is midline. No acute infarct,hemorrhage, or mass is identified. No extra-axial collection or midline shift isidentified. The paranasa l sinuses appear well aerated. The major flow-voidsappear preserved. The mastoid air cells appear well aerated. There is aretention cyst versus polyp in the righ t maxillary sinus.Impression: No acute infarct, hemorrhage, or mass is identifi ed.Ct Head Wo ContResult Date: 12/05/2019CT HEAD W/O CONTRAST PRIOR: Multiple: Most recent October 29, 2019: "No acuteintracranial pathology seen." HISTORY: Limited to jerzy t provided by the emergencydepartment at the time of this examination; BIBA for fall in the middle of thenight while going to bathroom C/p left hip pain? TECHNICAL F ACTORS: Spiralimages from the base of the skull to the vertex were obtained withou tintravenous contrast. From the data set coronal and sagittal reconstructionimage s were created on an independent workstation. Utilizing manufactureralgorithms the ex amination was performed to optimize image quality whileutilizing the lowest possib le ionizing radiation dose. One or more of thefollowing doses reduction techniques was used: Decreasing the mA and or kV,automatic exposure control and iterat sarah reconstruction algorithm. FINDINGS: B/Lmaxillary sinus polyposis is identifi ed. The remainder of the visualizedsinuses, orbits and osseous calvarium are unremar kable. The hinojosa and whitematter attenuation of the cerebellum and cerebral hemispher es is unremarkableand no intra / extra-axial hematoma, fluid / mass / mass effect nor midlineshift is seen upon the sulci or ventricular system.IMPRESSION: 1. B/L ma xillary sinus polyposis. 2. Otherwise unremarkablenon-contrast enhanced CT of the brain.Xr Chest PortResult Date: 12/05/2019CHEST 1 view (s) HISTORY: Chest pain. COMPARISON: 10/29/2019. The patient isrotated towards the right and there is a poor inspiratory effort. There is apossible left basal infiltrate. The rem ainder of the lungs, pleura, mediastinumand visualized bony thorax appear to be norm al. The left hilum is normal. Theright hilum is obscured. There may be borderline or mild cardiomegaly.IMPRESSSION: Poor inspiratory effort. Possible left basal infiltrate.Assessment:Principal Problem: Adverse drug reaction, initial encounter (12/05/2019)Active Problems: Encephalopathy acute (12/05/2019) Swk-btaq-rpooxex adve rse reaction to medication (12/05/2019)Plan:To increase activity, diet,klonopin. Start Losartan Name Value Range Interpretation Code Description Data Melani rce(s) Supporting Document(s ) ID Date Data Source [id number] 12/07/2019 10:13:28 AM EDT [facility] LT EEG diet supervisor DC'd per Dr. Jacob. Name Value Range Interpretation Code Description Data Melani rce(s) Supporting Document(s ) ID Date Data Source [id number] 12/07/2019 10:08:27 AM EDT [facility] [place], [place] [address]MQKIJLY: MAXWELL BRAYMRN: [id number]: [id number]#: [id number] DATE: 12/05/2019LONG TERM MONITORING VIDEO CLINICAL DATA COORDINATOR: Riky Rodriguez HISTORY: The patient is a 49-year-old m an with a history of abnormalmovements concerning for seizures.MEDICATIONS: No ne.START OF RECORDIN12/05/2019 at 05:25 p.m.END OF RECORDING: Read through 11/23 at 10:00 a.m.TECHNIQUE: This is a 21-channel long-term monitoring video EE G recording. Therecording was done in accordance with the International 10-20 System ofelectrode placement. EEG interpretation was done using both the r eferential andbipolar montages. Digital analysis was performed employing an [employer] neuralnetwork program with parameterization and statistical analysi s. Analysis toolsutilized include compressed spectral array (CSA), XL spike detectors , and XLevent detector. Please note that the reading physician had access to review t hedata throughout the recording and a daily report was generated on each day ofthe r ecording. To eliminate confusion from the electronic medical record, augustin weston rts were consolidated into one full report. Patient managementdecisions were made in real time during the course of the recording as deemedappropriate.BACKGROUND ACTIVITY : The awake record is well organized and symmetric, andconsists primarily of high amplitude beta with admixed alpha frequencies.A 7-7.5 Hz posterior dominan t rhythm is seen, that attenuates with eye opening.There was lxzx-ah-srqrcywq gener alized background slowing.There was no clear focal slowing.ACTIVATION TECHNIQUES: Ph otic stimulation and hyperventilation were notperformed.SLEEP: During drowsiness, there is mild attenuation and slowing of thebackground rhythm. There was normal sleep seen including symmetric vertexwaves, sleep spindles, and K-complexes.OTHER AC TIVITY: There were no clear epileptiform discharges and no seizures orclinical ev ents recorded.DIGITAL ANALYSIS: Variable spectral pattern without significant lef c-aa-ocmmyhginguikdtr. Spikes were artifact in nature.DECEMBER 06 DAILY REPORT:BACKGROUN D: Overall improvement in frequency of background activity. A 8-8.5 Hzposterior dominant rhythm was seen.ACTIVATION TECHNIQUES: Hyperventilation and photic stimulation not performed.SLEEP: No change in above noted sleep architecture. There wa s normal sleep seenincluding symmetric vertex waves, sleep spindles, and K complexes.O THER ACTIVITY: There were no epileptiform discharges, seizures, or clinicalevents recorded.IMPRESSION: This is an abnormal long-term monitoring video electroenceph alogramin the awake and asleep states due to baoh-vh-mrbumsbc diffuse cerebraldysfunc tion that improves to mild over the course of the recording. TRENT Gerry JACOB, MDDD: #12/06/2019 10:21:35/SS /[id number] #: [id number] / [id number] Name Value Range Interpretation Code Description Data Melani rce(s) Supporting Document(s ) ID Date Data Source [id number] 12/07/2019 07:45:20 AM EDT [facility] Bedside and Verbal shift change report cristi Dove RN (3Loria) (oncomingnurse) by Vy Green RN (offgoing nurse). Report included the following information SBAR, Kardex, MARand Recent Results. Name Value Range Interpretation Code Description Data [facility] rce(s) Supporting Document(s ) ID Date Data Source [id number] 12/07/2019 07:22:41 AM EDT [facility] All leads and head wrapping intact. Day 2 LTM complete. Awaiting instructions tocontinue for day 3 or DC. Name Value Range Interpretation Code Description Data [facility] rce(s) Supporting Document(s ) ID Date Data Source [id number] 12/07/2019 05:19:11 AM EDT [facility] Name Value Range Interpretation Description Data Sup porting Code Source(s) Document(s ) Sodium 138 136-145 [facility] - Good [Moles/volume] mmol/L [facility] in Serum or Hospital Plasma Potassium 3.5 3.5-5.1 [facility] - Good [Moles/volume] mmol/L [facility] in Serum or Hospital Plasma Chloride 106 98-107 [facility] - Good [Moles/volume] mmol/L [facility] in Serum or Hospital Plasma Carbon 27 21-32 [facility] - Good dioxide, total mmol/L [facility] [Moles/volume] Hospital in Serum or Plasma Anion gap in 10 10-20 [facility] - Good Serum or mmol/L [facility] Plasma Hospital Glucose 140 74-106 Above high normal [facility] - Good [Mass/volume] mg/dL [facility] in Serum or Hospital Plasma Urea nitrogen 19 mg/dL 7-18 Above high normal [facility] - Good [Mass/volume] [facility] in Serum or Hospital Plasma Creatinine 0.94 0.70-1.3 [facility] - Good [Mass/volume] mg/dL 0 [facility] in Serum or Hospital Plasma Glomerular >60 [facility] - Good filtration [facility] rate/1.73 sq M Hospital predicted among blacks [Volume Rate/Area] in Serum or Plasma by Creatinine-bas ed formula (MDRD) Glomerular >60 [facility] - Good filtration [facility] rate/1.73 sq M Hospital predicted among non-blacks [Volume Rate/Area] in Serum or Plasma by Creatinine-bas ed formula (MDRD) (NOTE)Estimated GFR is calculated using the Modification of Diet in RenalDisease (MDRD) Study equation, reported for both Americans(GFRAA) and non- Americans (GFRNA), and normalized to 1.7 6f5qtar surface area. The physician must decide which value applies tothe patient . The MDRD study equation should only be used inindividuals age 18 or older. It has no t been validated for thefollowing: women, patients with serious comorbid co nditions,or on certain medications, or persons with extremes of body size,muscl e mass, or nutritional status. Calcium [Mass/volume] in Serum 9.1 mg/dL 8.5-10.1 [facility] or Plasma Hospital ID Date Data Source [id number] 12/06/2019 08:12:24 PM EDT [facility] Bedside and Verbal shift change report cristi Loyd RN (oncoming nurse) Estephania Wakefield RN (offgoing nurse). Report included the followinginformation SBAR, Kardex, MAR, Recent Results, and Med Rec Status. Name Value Range Interpretation Code Description Data Melani rce(s) Supporting Document(s ) ID Date Data Source [id number] 12/06/2019 04:57:12 PM EDT [facility] General Daily Progress NoteAdmit Date: Hospital day: .tdSubjective:Patient less responsive this PM, does answer que stions appropriately. Neuro andpsych notes reviewed. To resume klonopin and Amitri ptyline.Current Facility-Administered MedicationsMedication Dose Route Frequen cy clonazePAM (KlonoPIN) tablet 1 mg 1 mg Oral BID amitriptyline (ELAVIL) tablet 150 mg 150 mg Oral QHS 0.9% sodium chloride infusion 125 mL/hr IntraVENous CONTINUO US enoxaparin (LOVENOX) injection 40 mg 40 mg SubCUTAneous [id number]:Patient Vi tals for the past 8 hrs: BP Temp Pulse Resp GjH35412/06/19 1547 (!) 164/100 99.6 F (3 7.6 C) 95 18 97 %No intake/output data recorded.No intake/output data recorded. Physical Exam: General: WD, obese. Alert, cooperative, no acute distress. HEENT: NC, Atraumatic. PERRLA, anicteric sclerae. Lungs: C TA Bilaterally. No Wheezing/Rhonchi/Rales. Heart: Regular rhythm, No m urmur, No Rubs, No Gallops. Abdomen: Soft, Non distended, Non tender. +Bowel sounds. Extremities: No c/c/e. Psych: Not anxious or agitat ed. Neurologic: No acute neurological deficit.Data ReviewRecent Results (from the past 24 hour(s))LACTIC ACID Collection Time: 12/05/19 7:20 PMResult Value Ref Range Lactic acid 0.9 0.4 - 2.0 MMOL/LAMMONIA Collection Time: 12/05/19 7:20 PMResult Value Ref Range Ammonia 16 11 - 32 UMOL/LLITHIUM Collection Time: 12/06/19 4:25 AMResult Value Ref Range [place] level 1.09 0.6 - 1.2 MMOL/L Xr Pelv Ap OnlyRes ult Date: 12/05/2019PELVIS one view. History: Trauma The study is suboptimal due to th e patient'sbody habitus. There is no evidence of fracture, dislocation, subluxation, b oneerosion or arthritis.IMPRESSION: Grossly normal study.Mri Brain Wo ContResult Marlon e: 12/05/2019History: ams Technique: An MRI of the brain was performed utilizing sagitt al T1;coronal FLAIR; axial T1, T2, FLAIR, SWI, gradient echo, and diffusion sequen jaxon.Comparison: MRI of the brain performed 01/13/[address] scan of the braindate d 12/05/2019. Findings: The ventricles are unremarkable in size configurationfor pa tient's age. The fourth ventricle is midline. No acute infarct,hemorrhage, or mass is identified. No extra-axial collection or midline shift isidentified. The paranasa l sinuses appear well aerated. The major flow-voidsappear preserved. The mastoid air cells appear well aerated. There is aretention cyst versus polyp in the righ t maxillary sinus.Impression: No acute infarct, hemorrhage, or mass is identifi ed.Ct Head Wo ContResult Date: 12/05/2019CT HEAD W/O CONTRAST PRIOR: Multiple: Most recent October 29, 2019: "No acuteintracranial pathology seen." HISTORY: Limited to jerzy t provided by the emergencydepartment at the time of this examination; BIBA for fall in the middle of thenight while going to bathroom C/p left hip pain? TECHNICAL F ACTORS: Spiralimages from the base of the skull to the vertex were obtained withou tintravenous contrast. From the data set coronal and sagittal reconstructionimage s were created on an independent workstation. Utilizing manufactureralgorithms the ex amination was performed to optimize image quality whileutilizing the lowest possib le ionizing radiation dose. One or more of thefollowing doses reduction techniques was used: Decreasing the mA and or kV,automatic exposure control and iterat sarah reconstruction algorithm. FINDINGS: B/Lmaxillary sinus polyposis is identifi ed. The remainder of the visualizedsinuses, orbits and osseous calvarium are unremar kable. The hinojosa and whitematter attenuation of the cerebellum and cerebral hemispher es is unremarkableand no intra / extra-axial hematoma, fluid / mass / mass effect nor midlineshift is seen upon the sulci or ventricular system.IMPRESSION: 1. B/L ma xillary sinus polyposis. 2. Otherwise unremarkablenon-contrast enhanced CT of the brain.Xr Chest PortResult Date: 12/05/2019CHEST 1 view (s) HISTORY: Chest pain. COMPARISON: 10/29/2019. The patient isrotated towards the right and there is a poor inspiratory effort. There is apossible left basal infiltrate. The rem ainder of the lungs, pleura, mediastinumand visualized bony thorax appear to be norm al. The left hilum is normal. Theright hilum is obscured. There may be borderline or mild cardiomegaly.IMPRESSSION: Poor inspiratory effort. Possible left basal infiltrate.Assessment:Principal Problem: Adverse drug reaction, initial encounter (12/05/2019)Active Problems: Encephalopathy acute (12/05/2019) Qkt-ozbp-hjulshe adve rse reaction to medication (12/05/2019)Plan:To reduce iv fluids, repeat lasix Name Value Range Interpretation Code Description Data Melani rce(s) Supporting Document(s ) ID Date Data Source [id number] 12/06/2019 04:14:48 PM EDT [facility] - [facility] Psychiatry Consult NoteSubjective:Landen t: Maxwell Bray Age: 49 y.o. : 1970Date of Evaluation: 12/06/2019Re ason for Referral: Maxwell Bray was admitted for evaluation of lethargy,weak ness and possible fall history.History of Presenting Problem: Psychiatry was asked to evaluate patient becauseof suicidal thoughts and possible adverse reaction t o medication. Patientreported "I am feeling good" and regarding suicidal thoughts he reported "I wantto live" and stated he does not recall making suicidal thoughts. He reportedcurrent mood as "very good" though his affect is not congruent to expressed inner feeling state.Family History:Family HistoryProblem Relation Age of Onset Di abetes Mother Heart Disease MotherMedical History:Past Medical History:Diagnosis D ate Other unknown and unspecified cause of morbidity or mortality cardiac cath at [facility] approx 6-8 months ago Other unknown and unspecified cause of morbidity or mortal ity concussions Other unknown and unspecified cause of morbidity or mortal ity "periodic disorientation" Other unknown and unspecified cause of morbidity or mo rtality anxiety Psychiatric disorder anxiety, depressionPsychiatric History: Patient reported he was receiving care in outpatient from [facility] psychiatrist bu t did not discuss details.Substance Use History:Social HistorySubstance and Sexu al ActivityAlcohol Use No Frequency: Never Drinks per session: 1 or 2 Binge freque ncy: NeverSocial HistorySubstance and Sexual ActivityDrug Use NoObjective:Vitals/Phys ical Assessment:Patient Vitals for the past 8 hrs: BP Temp Pulse Resp QpS02412/06/19 081 3 (!) 153/94 100.4 F (38 C) 100 18 96 %12/06/19 0445 - 99.6 F (37.6 C) - - - 12/06/19 0439 (!) 149/93 (!) 100.6 F (38.1 C) (!) 103 19 97 %MENTAL STATUS EXAM:FIN DINGS WITHIN NORMAL LIMITS (WNL) UNLESS OTHERWISE STATED BELOW:Sensorium Alert and Oriented x 2Relations guardedAppearance: age appropriate and patient is overweigh t, he has monitors for eegMotor Behavior: within normal limitsSpeech: normal pitc h, normal volume and non-pressuredThought Process: goal directed and logicalThough t Content free of delusions and free of hallucinationsSuicidal ideations noneHom icidal ideations noneMood: Reported as happy, very goodAffect: stable and mood -incongruentMemory recent adequateMemory remote: adequateConcentration: adequat eAbstraction: abstractInsight: limitedReliability fairJudgment: limite dImpression:Principal Problem: Adverse drug reaction, initial encounter (12/05/2019)A ctive Problems: Encephalopathy acute (12/05/2019) [place]-cdeikss adverse re action to medication (12/05/2019)Plan:No current facility-administered medication s on file prior to encounter.Current Outpatient Medications on File Prior to EncounterMedication Sig Dispense Refill risperiDONE (RisperDAL) 2 mg tablet Take 1 Tab by mouth daily. 30 Tab 1 amitriptyline (ELAVIL) 100 mg tablet 200 mg. lithium carbonate 150 mg capsule Take 300 mg by mouth two (2) times daily(with meals). clonazePAM (KLONOPIN) 2 mg tablet Take 1 mg by mouth two (2) times daily a sneeded. Vraylar 3 mg capsule Take 6 mg by mouth nightly. Prescription is 6 mg caps uleIndications: bipolar depressionInterventions: Patient denies suicidal thoughts and I recommend continuingcurrent psychotropic medicatio n.Recommendations for Treatment/Conditions:Psychiatry will fol low patient's care.Vitaly Maradiaga MD 12/06/2019 11:35 AM Name Value Range Interpretation Code Description Data Melani rce(s) Supporting Document(s ) ID Date Data Source [id number] 12/06/2019 01:18:16 PM EDT [facility] - [facility] Trent Jacob MD[address] [place] [address] [phone].Tetris Online Progress NotePatient: Maxwell Bray Sex: male DOA: 12/05/2019Date of : 1970 Age: 49 y.o. LOS: LOS: 1 daySubjective:Awake, alert, tremulous, no current complaintsEEG w/ mild to mod gen slowREVIEW OF SYSTEMS: NO CP, SOB, N,V,D, F,CCurrent Facility-Administered MedicationsMedication Dose Route Frequen cy 0.9% sodium chloride infusion 125 mL/hr IntraVENous CONTINUOUS enoxaparin (LOVE NOX) injection 40 mg 40 mg SubCUTAneous H43PLtkpgrxkf:Visit VitalsBP (!) 153/94 (BP 1 Location: Left arm, BP Patient Position: At rest)Pulse 100Temp 100.4 F (38 C)Resp 18Ht 5' 5.75" (1.67 m)Wt 300 lb (136.1 kg)SpO2 96%BMI 48.79 kg/m Body mass index is 48.79 kg/m .Patient Vitals for the past 24 hrs: Temp Pulse Resp BP AhQ69712/06/19 0813 100.4 F (38 C) 100 18 (!) 153/94 96 %12/06/19 0445 99.6 F (37.6 C) - - - -12/06/19 0439 (!) 100.6 F (38.1 C) (!) 103 19 (!) 149/93 97 %12/06/19 00 47 - - - 138/90 -12/05/19 2103 97.5 F (36.4 C) 73 18 - -12/05/19 2057 99.3 F (37.4 C) 98 18 (!) 151/96 96 %12/05/19 1809 97.5 F (36.4 C) 98 17 (!) 154/105 98 % 1500 - 96 17 (!) 136/106 96 %12/05/19 1447 98.2 F (36.8 C) - - - -12/05/19 1430 - 95 17 (!) 138/100 97 %12/05/19 1422 97.9 F (36.6 C) 95 20 (!) 150/99 92 %12/05/19 1400 - 97 19 (!) 150/99 93 %GeneralW/D W/N NAD No C/C/EMental StatusA&O x 2 ( orien t to self and place, president = Jacob) + hypophoniaCranial NervesEOMS full VFF pu pils equal and reactive sensation intactMotor4/5 throughout UEs - Arms ant igravity with left arm slight drift and bilateralintermittent tremors. + Intermi ttent jerk both UEs3/5 LEsSensationIntact to LTReflexesDTRs trace and symmetrical, to es downgoingGait.CerebellumDysmetria right and left finger to nose testing , gait deferred All the patient's labs over the past 24 hours were reviewed both during [employer] daily workflow process and at the time notated as "note time" in [facility]. (It is not time stamped separately in this workflow.) Select labs arelisted below. Lab/Data Reviewed:Recent Results (from the past 24 hour(s))URINALYSIS W/ RFLX MICRO SCOPIC Collection Time: 12/05/19 2:45 PMResult Value Ref Range Color DARK YELL OW (A) YEL Appearance TURBID (A) CLEAR Specific gravity 1.033 (H) 1.003 - 1.030 pH (UA) 5.5 4.6 - 8.0 Protein 30 (A) NEG mg/dL Glucose Negative NEG mg/dL Ketone 15 (A) NEG mg/dL Bilirubin SMALL (A) NEG Blood Negative NEG Urobilinogen 1.0 0.2 - 1.0 EU/dL Nitrites Negative NEG Leukocyte Esterase Negative NEG WBC 5-10 0 - 5 /hp f RBC 0-3 0 - 2 /hpf Epithelial cells 0- 3 0 - 10 /hpf Bacteria 1+ (A) NONE /hpfBILIRUB IN, CONFIRM Collection Time: 12/05/19 2:45 PMResult Value Ref Range Bilirubin UA, c onfirm Negative NEGCULTURE, URINE Collection Time: 12/05/19 2:45 PMResult Value Ref Range Special Requests: NO SPECIAL REQUESTS Culture result: NO GROWTH 1 DAYLACTIC AC ID Collection Time: 12/05/19 7:20 PMResult Value Ref Range Lactic acid 0.9 0.4 - 2. 0 MMOL/LAMMONIA Collection Time: 12/05/19 7:20 PMResult Value Ref Range Ammonia 16 11 - 32 UMOL/LLITHIUM Collection Time: 12/06/19 4:25 AMResult Value Ref Range [place] level 1.09 0.6 - 1.2 MMOL/LCT Results (most recent):Results from Hospital Enc unter encounter on 12/05/19CT HEAD WO CONT Narrative CT HEAD W/O CONTRASTPRIOR: Mul tiple: Most recent October 29, 2019: "No acute intracranial pathologyseen."HISTORY : Limited to that provided by the emergency department at the time ofthis examinatio n; BIBA for fall in the middle of the night while going tobathroom C/p left hip leigh ann n?TECHNICAL FACTORS: Spiral images from the base of the skull to the vertex wereobta ined without intravenous contrast. From the data set coronal and sagittalreconstruct ion images were created on an independent workstation. Utilizingluis aufactpearl walsh the examination was performed to optimize image qualitywhile utilizing th e lowest possible ionizing radiation dose. One or more of thefollowing doses reduct ion techniques was used: Decreasing the mA and or kV,automatic exposure control and iterative reconstruction algorithm.FINDINGS:B/L maxillary sinus p olyposis is identified. The remainder of the visualizedsinuses, orbits and osseous ca lvarium are unremarkable.The hinojosa and white matter attenuation of the cerebellum and cerebral hemispheresis unremarkable and no intra / extra-axial hematoma, fluid / ma ss / mass effectnor midline shift is seen upon the sulci or ventricular system. Im pression IMPRESSION:1. B/L maxillary sinus polyposis.2. Otherwise unremarkable non- contrast enhanced CT of the brain.MRI Results (most recent):Results from Hospital Enc unter encounter on 12/05/19MRI BRAIN WO CONT Narrative History: amsTechnique: An MRI of the brain was performed utilizing sagittal T1; coronalFLAIR; axial T1, T2, FLAIR, S WI, gradient echo, and diffusion sequences.Comparison: MRI of the brain p erformed 01/13/[address] scan of the braindated 12/05/2019.Findings: The ventr icles are unremarkable in size configuration for patient'bill. The fourth ventricle i s midline. No acute infarct, hemorrhage, or mass isidentified. No extra-axial collec tion or midline shift is identified. Theparanasal sinuses appear well aerated . The major flow-voids appear preserved.The mastoid air cells appear well aerated. T here is a retention cyst versuspolyp in the right maxillary sinus. Impression Impres magalys: No acute infarct, hemorrhage, or mass is identified.Assessment/PlanPatient Act sarah Problem ListDiagnosis Code H/O gastric bypass Z98.84 Insomnia G47.00 Neuropat hic pain of shoulder M79.2 Seizure disorder ([facility]) G40.909 Spells [id number] Severe ob esity ([facility]) E66.01 Depression F32.9 Anxiety F41.9 Bipolar disorder ([facility]) F31.9 Dep ressive disorder F32.9 Status post gastric bypass for obesity Z98.84 Morbid obesit y ([facility]) E66.01 Mixed anxiety and depressive disorder F41.8 Vitamin D deficiency E55 .9 Bipolar disorder with severe depression ([facility]) F31.4 Encephalopathy acute G93.40 Adverse drug reaction, initial encounter T50.905A Hdj-srnb-exjfzrc adverse react ion to medication T88.7XXA49 year old male with pmh as stated above and now with AM S and generalizedweakness - most likely secondary to lithium toxicity.EEG w/ mil d to mod gen slow.Ammonia normal.MRI Brain normal.EEG w/ mild to mod gen slow.Plan: - c/w EEG x 24 hours- f/u lithium levelsMedical Decision Making Amount an d/or Complexity of Data ReviewedClinical lab tests: reviewed and orderedTests in the radiology section of CPT : ordered and reviewedDecide to obtain previous medica l records or to obtain history from someoneother than the patient: yesObtain history from someone other than the patient: yesReview and summarize past medical rec ords: yesDiscuss the patient with other providers: yesIndependent visualization of images, tracings, or specimens: yes Name Value Range Interpretation Code Description Data Melani rce(s) Supporting Document(s ) ID Date Data Source [id number] 12/06/2019 11:43:34 AM EDT [facility] - [facility] LT study day 1 complete. All leads and head wrapping intact. Day 2 LTM studycommenced and LIVE via WIFI on [facility]. 06/28 Name Value Range Interpretation Code Description Data Melani rce(s) Supporting Document(s ) ID Date Data Source [id number] 12/06/2019 10:48:32 AM EDT [facility] Care Management InterventionsPCP Verifie d by CM: YesCurrent Support Network: Own Home, Lives with SpouseThe Patient and/o r Patient Human Service Coordinator was Provided with a Choice of Providerand Agrees with the Di milton Plan?: YesFreedom of Choice List was Provided with Basic Dialogue that Suppor ts thePatient's Individualized Plan of Care/Goals, Treatment Preferences and Sh aresthe Quality Data Associated with the Providers?: YesVeteran Resource Informat ion Provided?: RefusedDischarge LocationDischarge Placement: HomeCASE YUE LORENZ PSYCHOSOCIAL ASSESSMENTBrian F Asa Admission Marlon e: 12/05/2019MRN: [id number] of : 1970Current date: 12/06/2019 DISCHARGE PLAN: Patient is a 49 year old male admitted to [facility]. CM attempted toreach hi m via room phone and was unsuccessful. CM spoke with the spouses ,Blanca at . Prior to hospitalization patient was independent of allADL's and ambulati ng prior to this incident. During this most recent episode,patient became lethargic with increasing confusion, weakness, and experiencingtremors in his legs. Karsten faust has a walker and has been out of work sinceMay 2019 due to his depression .CM discussed advance directives. Patient has no living will and health careproxy. She wishes for him to remain a full code.CM discussed discharge planning. PT will ev aluate for discharge needs. Familyamenable to services. Open for SNF. Family would like [facility]. CM CCLINKD. CM willfollow.Patient Information:Patients Preferred Name: Gillian anPatidonna Arrived Via: StretcherInformation Obtained From: Spouse(Spouse Blanca)Prachi ent Objects to Receiving Blood: NoMRSA Assessment: No Known History of MRSAAudi tory Impairment: Hard of hearing, bilateralRetired Read Only-Readmit Risk ToolSupport Systems: Child(mary), Family member(s), Friends \\ neighbors,Spouse/Si gnificant Other/PartnerHistory of Falls Within Past 3 Months: YesNeeds Assistanc e with Wound Care AND/OR Mgnt of O2, Nebulizer: NoRequires Financial, Physica l and/or Educational Assistance With Medications: YesHistory of Mental Illnes s: YesLiving Alone: NoPCP: Ritika Canas MDAdmitting Provider: DIANA Lucero [facility] EGG TESTER: N/APayor: P ayor: [facility] HEALTH PLAN / Plan: [facility] HE[facility] PLAN /Product Type: O /Secondary Payor : @[email or web address]@Encephalopathy acute [G93.40]Rbw-mihh-nrwlpwf adverse reactio n to medication [T88.7XXA]Lyh-nkam-llpxotd adverse reaction to medication [T88.7XXA ]Patient Active Problem ListDiagnosis Code H/O gastric bypass Z98.84 Insomnia G47. 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 Seizure disorder (HCC) G40.909 Spells I [id number] Severe obesity (HCC) E66.01 Depression F32.9 Anxiety F41.9 Bipolar disorder (HCC) F31.9 Depressive disorder F32.9 Status post gastric bypass for ob esity Z98.84 Morbid obesity (HCC) E66.01 Mixed anxiety and depressive disorder F4 1.8 Vitamin D deficiency E55.9 Bipolar disorder with severe depression (HCC) F3 1.4 Encephalopathy acute G93.40 Adverse drug reaction, initial encounter T50.905 A Ggj-nlwh-qgnnjyv adverse reaction to medication T88.7XXASocial HistorySubstan ce and Sexual ActivityAlcohol Use No Frequency: Never Drinks per session: 1 or 2 Binge frequency: NeverNumber of stairs into patient home:DME:Cohabitants:Abuse Screen:Physical Abuse/Neglect: DeniesSexual Abuse: DeniesVerbal Abuse: DeniesOther A buse/Issues: DeniesINSURANCE INFORMATION: (Verification)Primary Notes:Secondary No kenton:Workmen's Comp Notes:No-Fault Notes:SSD Notes:Un-Insured Notes:Long-Term Care In surance If Applicable Notes:Current Functioning:Language barriers: Notes:Und erstanding nature/impact of illness: Notes:Ability to participate in plan: No kenton:Realistic Problem solving and planning: Notes:Adequate coping skills: Notes:Reli gious/Cultural barriers: Notes:If unable to assess or not applicable: Notes:Suicide Assessment:Readmit Risk:Support Systems: Child(mary), Family member(s), Friends \\ neighbors,Spouse/Significant Other/PartnerAdvanced Care Planning:Conf irm Advance Directive: NoneDiscussed with the patient and all questions fully answered . He will call me ifany problems arise. Name Value Range Interpretation Code Description Data Melani rce(s) Supporting Document(s ) ID Date Data Source [id number] 12/06/2019 07:40:06 AM EDT [facility] 1938: Patient found in bed resting quiet ly. Pt is oriented to self only. Pt faceand eyes are red, BLE have redness as well. Skin to the buttocks and sacrum isintact with no redness noted. Scrotum appears red an d swollen. Pt has a scrapeopen to air on right knee, and scratch warner on LUE. EE G is currently hooked upto pt and operating. Pt oriented to call moffett and left with a ll needs withinreach. Admission done via telephone with pt Blanca.2143: Pt n ow oriented to person, place, and situation; disoriented to time. Ptstates he is not in any pain, and is comfortable. Will continue to monitor.Bedside and Verbal s hift change report given to Shanelle Wakefield RN (oncomingnurse) by Светлана Carter RN (offgoing nurse). Report included the followinginformation SBAR, ED Summary, M AR and Recent Results. Name Value Range Interpretation Code Description Data [facility] rce(s) Supporting Document(s ) ID Date Data Source [id number] 12/06/2019 05:07:27 AM EDT [facility] Name Value Range Interpretation Description Data Sup porting Code Source(s) Document(s ) [place] 1.09 0.6-1.2 [facility] [Moles/volu MMOL/L [facility]] in Hospital Serum or Plasma ID Date Data Source [id number] 12/05/2019 07:59:09 PM EDT [facility] Name Value Range Interpretation Description Data Sup porting Code Source(s) Document(s ) Ammonia 16 UMOL/L 11-32 [facility] [Moles/volum Judaism e] in Plasma Hospital ID Date Data Source [id number] 12/05/2019 07:56:38 PM EDT [facility] Name Value Range Interpretation Description Data Sup porting Code Source(s) Document(s ) L[place] 0.9 0.4-2.0 [facility] [Moles/volu MMOL/L [facility] me] in Hospital Serum or Plasma ID Date Data Source [id number] 12/05/2019 06:42:57 PM EDT [facility] LTM EEG diet 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 Day 1 LTM comm enced and LIVE via WIFI on [facility] 06/28 Name Value Range Interpretation Code Description Data Melani rce(s) Supporting Document(s ) ID Date Data Source [id number] 12/05/2019 06:07:34 PM EDT [facility] [id number] [facility] [employer] [employer] [facility] 4T OR THOPEDICS [address] [facility] [facility] [address] [phone] Maxwell Bray (Male) [id number] ES I 3 ED Dispo:ADMIT Chief Complaint: Fall, Fatigue Diagnosis: Altered mental status, unspecified altered mental status type [] Adverse drug reaction, initial encounter [] Encephalopathy acute [] Zdo-jeah-crzsjzg adverse effect of medication, subsequent encounter [] Bipolar disorder with severe depression (HCC) [] H/O gastric bypass [] Andrez nt Providers: Attending: Patsy Manzo; Kristy Otero; Cristi Canas Consulting Provider: Jose Centeno; Cristi Canas; Javier Khan; Cristi Frazier Primary Nurse: BAILEY GambleN: [id number] [phone] [employer] [id number] - [facility] MrnMRN: [id number] Print Group [phone] - [facility] Age SexDOB 1970 AGE 49 SEX Male Primary Care Provider: Ritika Canas MD Phone: Allergies: (No Known Allergies)Date Reviewed: 12/05/2019Reviewed by: Ritika Canas MD - Review CompleteED Provider Notes: All notesHNO ID: [id number]: Julio Manzo MDService: EMERGENCYAuthor Type: Physici anFiled: 12/05/19 1636Note Text:The history is provided by the patient and the EMS personnel.11:17 AM: Maxwell Bray is a 49 y.o. male with h/o anxiety anddepression who presents to the ED via EMS c/o generalized weakne ss. He wasin bed last night when he fell on to the ground, and was unable to get up.He is weak and cant wal k. He denies hip pain, or any other constitutionalsymptoms at this time. He expressed some suicidal thought s over the pastmonths, with no plan. No other complaints at this time.Past Medical History:Diagnosis Date Other unknown and unspecified cause of morbidity or mortality cardiac cath at [facility] approx 6-8 months ag o Other unknown and unspecified cause of morbidity or mortality concussions Other unknown and unspecifi ed cause of morbidity or mortality "periodic disorientation" Other unknown and unspecified cause of morbidi ty or mortality anxiety Psychiatric disorder anxiety, depressionPast Surgical History:Procedure Laterality Da te ABDOMEN SURGERY PROC UNLISTED gastric bypass 2009 HX GASTRIC BYPASS roue-en-y HX ORTHOPAEDIC 1985 a arthroscopic knee surgery HX ORTHOPAEDIC 1990 broken footFamily History:Problem Relation Age of Onset D iabetes Mother Heart Disease MotherSocial HistorySocioeconomic History Marital status: Spouse name: Not on file Number of children: Not on file Years of education: Not on file Highest educatio n level: Not on fileOccupational History Not on fileSocial Needs Financial resource strain: Not very hard Food insecurity Worry: Never true Inability: Never true Transportation needs Medical: No Non-m edical: NoTobacco Use Smoking status: Never Smoker Smokeless tobacco: Never UsedSubstance and Sexual Activity Alcohol use: No Frequency: Never Drinks per session: 1 or 2 Binge frequency: Never Drug use: No Sexual activity: Not Currently Partners: FemaleLifestyle Physical activity Days per week: 0 days Minutes per session: 0 min Stress: Very muchRelationships Social connections Talks on phone: Once a week Gets together: Once a week Attends shinto service: More than 4 times per year Active member of club or organization: No Attends meetings of clubs or organizations: Never Relationship status: Intimate p artner violence Fear of current or ex partner: No Emotionally abused: No Physically abused: No Force d sexual activity: NoOther Topics Concern Service No Blood Transfusions No Caffeine Concern No Oc cupational Exposure No Hobby Hazards No Sleep Concern Yes Stress Concern Yes Weight Concern Yes Special Diet No Back Care No Exercise No Bike Helmet No Seat Belt Yes Self-Exams NoSocial History Narrative N ot on fileALLERGIES: Patient has no known allergies.Review of SystemsConstitutional: Negative for chil ls and fever.HENT: Negative for rhinorrhea and sore throat.Eyes: Negative for photophobia and visual dist urbance.Respiratory: Negative for cough and shortness of breath.Cardiovascular: Negative for ches t pain and leg swelling.Gastrointestinal: Negative for abdominal pain, diarrhea, nausea andvomiting.Genitourina ry: Negative for dysuria and hematuria.Musculoskeletal: Negative for back pain and myalgias.Skin: Negative fo r color change and pallor.Neurological: Positive for weakness. Negative for seizures and syncope.Psychi atric/Behavioral: Positive for suicidal ideas.Vitals: 12/05/19 1143 12/05/19 1144 12/05/19 1400 12/05/19 142 2BP: (!) 161/108 (!) 150/99 (!) 150/99Pulse: (!) 102 (!) 102 97 95Resp: 20Temp: 98.8 F (37.1 C ) 97.9 F (36.6 C)SpO2: 92% 93% 92%Weight:Height:1144 AM Pulse Oximetry reading is 92 % on room air, wh ich indicates normaloxygenation per Julio Manzo MD.Physical ExamVitals signs and nursing note review ed.Constitutional: General: He is not in acute distress. Appearance: He is well-developed. He is obese.HENT: Head: Normocephalic and atraumatic.Eyes: Pupils: Pupils are equal, round, and reactive to light.Neck: Musculoskeletal: Neck supple. Vascular: No JVD.Cardiovascular: Rate and Rhythm: N ormal rate and regular rhythm. Heart sounds: Normal heart sounds.Pulmonary: Effort: Pulmonary ef fort is normal. No respiratory distress. Breath sounds: Normal breath sounds. No wheezing or rales.Abdo elliot: General: There is no distension. Palpations: Abdomen is soft. Tenderness: There is no abdomina l tenderness. There is no guarding orrebound.Musculoskeletal: Normal range of motion. General: No tendernes s.Skin: General: Skin is warm and dry.Neurological: Mental Status: He is oriented to person, place, and linda e. He islethargic.MDMNumber of Diagnoses or Management OptionsAltered mental status, unspecified altered menta l status type:Amount and/or Complexity of Data ReviewedClinical lab tests: ordered and reviewedTests in the radiology section of CPT : ordered and reviewedDecide to obtain previous medical records or to obtain hi story fromsomeone other than the patient: yesObtain history from someone other than the patient: yesRevie w and summarize past medical records: yesDiscuss the patient with other providers: yesIndependent visualiz ation of images, tracings, or specimens: yesProcedElan Alvarado Dennis, MD, reviewed the patient's past history, allergies andhome medications as documented in the nursing chart.Labs:Recent Results (from the past 12 hour(s))EKG, 12 LEAD, INITIAL Collection Time: 12/05/19 11:41 AMResult Value Ref Range Ventricular Rat e 102 BPM Atrial Rate 102 BPM P-R Interval 174 ms QRS Duration 104 ms Q-T Interval 395 ms QTC Calculation (Bez et) 515 ms Calculated P Parkman 40 degrees Calculated R Parkman 41 degrees Calculated T Parkman 147 degrees Diagnosis Sinus tachycardiaProbable left atrial enlargementAbnormal R-wave progression, early transitionNonspecific T abnormalities, lateral leadsProlonged QT intervalMETABOLIC PANEL, COMPREHENSIVE Collection Time: 12/05/19 12:38 PMResult Value Ref Range Sodium 134 (L) 136 - 145 mmol/L Potassium 3.5 3.5 - 5.1 mmol/L Chloride 104 98 - 107 mmol/L CO2 26 21 - 32 mmol/L Anion gap 7 (L) 10 - 20 mmol/L Glucose 127 (H) 74 - 106 mg/dL BU N 21 (H) 7 - 18 mg/dL Creatinine 0.94 0.70 - 1.30 mg/dL GFR est AA >60 >60 ml/min/1.73m2 GFR est non-AA >60 >60 ml/min/1.73m2 Calcium 8.4 (L) 8.5 - 10.1 mg/dL Bilirubin, total 0.9 0.2 - 1.0 mg/dL ALT (SGPT) 34 13 - 61 U/ L AST (SGOT) 47 (H) 15 - 37 U/L Alk. phosphatase 171 (H) 45 - 117 U/L Protein, total 7.5 6.4 - 8.2 g/dL Albumi n 3.8 3.5 - 4.7 g/dL Globulin 3.7 1.7 - 4.7 g/dL A-G Ratio 1.0 0.7 - 2.8CBC WITH AUTOMATED DIFF Collection Ti me: 12/05/19 12:38 PMResult Value Ref Range WBC 12.4 (H) 4.8 - 10.6 K/uL RBC 5.03 4.70 - 6.00 M/uL HGB 15.4 14.0 - 18.0 g/dL HCT 45.8 42.0 - 52.0 % MCV 91.1 81.0 - 94.0 FL MCH 30.6 27.0 - 35.0 PG MCHC 33.6 30.7 - 37. 3 g/dL RDW 12.9 11.5 - 14.0 % PLATELET 164 130 - 400 K/uL MPV 9.5 9.2 - 11.8 FL NRBC 0.0 0 PER 100 WBC ABSOLUT E NRBC 0.00 0.0 - 0.01 K/uL NEUTROPHILS 80 (H) 48.0 - 72.0 % LYMPHOCYTES 8 (L) 18.0 - 40.0 % MONOCYTE S 10 2.0 - 12.0 % EOSINOPHILS 1 0.0 - 7.0 % BASOPHILS 0 0.0 - 3.0 % IMMATURE GRANULOCYTES 0 0 - 0.5 % ABS. N EUTROPHILS 10.0 (H) 2.3 - 7.6 K/UL ABS. LYMPHOCYTES 1.0 0.9 - 4.2 K/UL ABS. MONOCYTES 1.2 0.1 - 1.7 K/UL ABS. E OSINOPHILS 0.1 0.0 - 1.0 K/UL ABS. BASOPHILS 0.0 0.0 - 0.4 K/UL ABS. IMM. GRANS. 0.1 0.0 - 0.17 K/UL DF AUTOM ATEDTROPONIN I Collection Time: 12/05/19 12:38 PMResult Value Ref Range Troponin-I, Qt. 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 The remainder of the lungs,pleura,mediastinum and visualized bony thorax appear to be normal. The left hilumisnormal. The right hilum is obscured. There may be borderli ne or mildcardiomegaly.IMPRESSSION: Poor inspiratory effort. Possible left basal infiltrate.CT Results (Last 48 hours) 12/05/[address] HEAD WO CONT Final result Impression: IMPRESSION:1. B/L maxillary sinus polypo sis.2. Otherwise unremarkable non- contrast enhanced CT of the brain. Narrative: CT HEAD W/O CONTRASTPRIOR: M ultiple: Most recent October 29, 2019: "No acute intracranial pathologyseen."HISTORY: Limited to that provided by the emergency department at the timeofthis examination; BIBA for fall in the middle of the night while going tobathroom C/p left hip pain?TECHNICAL FACTORS: Spiral images from the base of the skull to the vertexwereobtained without intravenous contrast. From the data set coronal andsagittalreconstruction images were created on an independent workstation.Utilizingmanufacturer algorithms the examination was performed to optimize imagequalitywhile utilizing the lowest possible ionizing radiation dose. One or moreof thefollow ing doses reduction techniques was used: Decreasing the mA and orkV,automatic exposure control and iter ative reconstruction algorithm.FINDINGS:B/L maxillary sinus polyposis is identified. The remainder of thevisua lizedsinuses, orbits and osseous calvarium are unremarkable.The hinojosa and white matter attenuation of the cere bellum and cerebralhemispheresis unremarkable and no intra / extra-axial hematoma, fluid / mass / mas seffectnor midline shift is seen upon the sulci or ventricular system.Radiology interpretation reviewed by Julio Manzo MD<EMERGENCY DEPARTMENT CASE SUMMARY>ED Course:49 y.o. male presented to the ED c/o genera lized weakness and fall out ofbed last night.Will check labs, troponin, EKG, cardiac monitoring, CXR, and head CT. Willgive Rocephin, IV fluids, and oxygen. Will consult ED psychiatry.Psychiatry saw and evaluated the patient, and they cannot hold the patientat his time, and is requesting a medical admission.228 PM Di scussed the patient's case with Dr. Canas (PCP) who will admit thepatient.COVID-19 suspected. Droplet precautions were taken.The patient had a surgical mask on upon entering the room: yesProvider PPE benny grimm, including:Surgical mask: yesN95 mask: yesEye Protection: yesGloves: yesGown: yesPatient was seen during Covi d- pandemic which may have affected standardof care.Final Impression/Diagnosis:Encounter Diagnoses ICD-10-CM ICD-9-CM1. Altered mental status, unspecified altered mental status type R41.04378.97Patient c ondition at time of disposition: StableI have reviewed the following home medications:Prior to Admission medi cationsMedication Sig Start Date End Date Taking? Authorizing ProviderrisperiDONE (RisperDAL) 2 mg tab let Take 1 Tab by mouth daily. 12/04/19CoRitika lobo MDamitriptyline (ELAVIL) 100 mg tablet 200 mg. 11/12/19 Provider,DaniloVraylar 3 mg capsule Take 6 mg by mouth nightly. Prescription is 6 mgcapsule Indications : bipolar depression 09/03/19 Provider, Danilolithium carbonate 150 mg capsule Take 300 mg by mouth two (2) times daily(with meals). Other, Paul, MDclonazePAM (KLONOPIN) 2 mg tablet Take 1 mg by mouth two (2) linda es dailyas needed. Other, Phys, MagalyoJulio MD IKishore, am serving as a scribe to document servi jaxon personallyperformed by Julio Manzo MD based on my observation and the provider'sstatements to me.IElan D ennis, MD, attest that the person(s) noted above, acting as myscribe(s) noted above, has observed my performance of the services and hasdocumented them in accordance with my direction. I have personallyreviewed the above information and have ordered and reviewed thediagnostic studies, unless otherwise noted.+ED Orde rs [id number] AIR EXPORT OPERATIONS AGENT - ED ONLY [#[id number]] Priority: STAT Class: Hospital Performe d Standing Order Information Remaining Occurrences:0 Interval:Continuous Last release d:12/05/2019 Released orders: SunDec 05, 2019 11:20 AM by: JULIO MANZO Type: -> Bedside N [id number] PULSE OXIMETRY CONTINUOUS [#[id number]] Priority: STAT Class: Hospital Performe d Standing Order Information Remaining Occurrences:0 Interval:CONTINUOUS Last release d:12/05/2019 Released orders: SunDec 05, 2019 11:20 AM by: JULIO MANZO [id number] PULSE OXIMETRY SPOT CHECK [#[id number]] Priority: STAT Class: Hospital Performed Standing Order Inf ormation Remaining Occurrences:0/1 Interval:ONE TIME Last released:12/05/2019 Release d orders: SunDec 05, 2019 11:20 AM by: JULIO MANZO [id number] OBTAIN OLD EKG [ #[id number]] Priority: Routine Class: Hospital Performed Standing Order Information Remainin g Occurrences:0/1 Interval:ONE TIME Last released:12/05/2019 Released orders : SunDec 05, 2019 11:20 AM by: JULIO MANZO [id number] AIR EXPORT OPERATIONS AGENT - ED ONLY [# [id number]] Priority: STAT Class: Hospital Performed Type: -> Bedside Released on: 12/05/2019 11:20 AM [id number] PULSE OXIMETRY CONTINUOUS [#[id number]] Priority: STAT Class: Hospital Performe d Released on: 12/05/2019 11:20 AM [id number] PULSE OXIMETRY SPOT CHECK [#[id number]] Priori ty: STAT Class: Hospital Performed Released on: 12/05/2019 11:20 AM [id number] OBTAIN OLD EKG [#[id number]] Priority: STAT Class: Hospital Performed Released on: 12/05/2019 11:20 AM [id number] VITAL SIGNS PER UNIT ROUTINE [#[id number]] Priority: STAT Class: Hospital Performed Stand ing Order Information Remaining Occurrences:0/1 Interval:CONTINUOUS Last released :12/05/2019 Released orders: SunDec 05, 2019 2:41 PM by: RITIKA CANAS Comment:More frequent ly if Indicated. [id number] BEDREST, COMPLETE [#[id number]] Priority: STAT Class: H ospital Performed Standing Order Information Remaining Occurrences:0/1 Interval:CONTIN UOUS Last released:12/05/2019 Released orders: SunDec 05, 2019 2:41 PM by: RITIKA CANAS [id number] NOTIFY PROVIDER: VITAL SIGNS CHANGES [#[id number]] Priority: STAT Class: Hospital Performe d Standing Order Information Remaining Occurrences:0/1 Interval:CONTINUOUS Last release d:12/05/2019 Released orders: SunDec 05, 2019 2:41 PM by: RITIKA CANAS Temp -> Greater jerzy n 101 F HR -> Greater than 120 Beats Per Minute or Less than 60 Beats Per Minute RR -> Greater than 30 per minute or Less than 8 per minute SBP -> Greater than 180 mm Hg or Less than 90 mm Hg O2 Sat -> Less than 90% UO -> Less than 120 ml in 4 hours [id number] APPLY/MAINTAIN SEQUENTIAL COMPRESSIO* [# [id number]] Priority: STAT Class: Hospital Performed Standing Order Information Remaining Occurre nces:0/1 Interval:CONTINUOUS Last released:12/05/2019 Released orders: SunDec 05, 2019 2:41 PM by: RITIKA CANAS [id number] VITAL SIGNS PER UNIT ROUTINE [#[id number]] Priorit y: STAT Class: Hospital Performed Comment:More frequently if Indicated. Released on: 12/05/2019 2 :41 PM [id number] BEDREST, GALLO [#[id number]] Priority: STAT Class: Hospital Performe d Released on: 12/05/2019 2:41 PM [id number] NOTIFY PROVIDER: VITAL SIGNS CHANGES [#[id number]] Priority: STAT Class: Hospital Performed Temp -> Greater than 101 F HR -> Greater than 120 Beats Per Minute or Less than 60 Beats Per Minute RR -> Greater than 30 per minute or Less than 8 per minute SBP -> Gr eater than 180 mm Hg or Less than 90 mm Hg O2 Sat -> Less than 90% UO -> Less than 120 ml in 4 carmen rs Released on: 12/05/2019 2:41 PM [id number] APPLY/MAINTAIN SEQUENTIAL COMPRESSIO* [#[id number]] P riority: STAT Class: Hospital Performed Released on: 12/05/2019 2:41 PM [id number] RT--OXYGEN CANNULA [#[id number]] Priority: STAT Class: Hospital Performed Standing Order Information Remaining Occurrences:0/1 Interval:CONTINUOUS Last released:12/05/2019 Released o rders: SunDec 05, 2019 11:20 AM by: JULIO MANZO LPM -> 2 Indications for O2? -> CHEST PAIN [id number] RT--OXYGEN CANNULA [#[id number]] Priority: STAT Class: Hospital Performe d LPM -> 2 Indications for O2? -> CHEST PAIN Released on: 12/05/2019 11:20 AM [id number] DIET NPO [#[id number]] Canceled Priority: STAT Class: Hospital Performed Cancele d by RITIKA CANAS on SunDec 05, 2019 2:41 PM Reason: None Comment: Standing Order Information Remaining Occurrences:0/1 Interval:DIET EFFECTIVE NOW Last released:12/05/2019 Release d orders: SunDec 05, 2019 11:20 AM by: JULIO MANZO NPO options: -> With Meds [id number] DIET NPO [#[id number]] Canceled Priority: STAT Class: Hospital Performed Cancele d by RITIKA CANAS on SunDec 05, 2019 2:41 PM Reason: None Comment: NPO options: -> With Meds Released on: 12/05/2019 11:20 AM [id number] DIET NPO [#[id number]] Priority: S TAT Class: Hospital Performed Standing Order Information Remaining Occurrences:0/1 Inter haile:DIET EFFECTIVE NOW Last released:12/05/2019 Released orders: SunDec 05, 2019 2:41 PM by: RITIKA CANAS [id number] DIET NPO [#[id number]] Priority: STAT Class: H ospital Performed Released on: 12/05/2019 2:41 PM [id number] SALINE LOCK IV [#[id number]] Priority: STAT Class: Hospital Performed Standing Order Information Remaining Occurrences:0 /1 Interval:ONE TIME Last released:12/05/2019 Released orders: SunDec 05, 2019 11:20 AM by: JULIO MANZO [id number] SALINE LOCK IV [#[id number]] Priority: STAT Cl ass: Hospital Performed Released on: 12/05/2019 11:20 AM [id number] METABOLIC PANEL, COMPREHENSIVE [# [id number]] Priority: STAT Class: ER Collect Standing Order Information Remaining Occurrences:0 /1 Interval:ONE TIME Last released:12/05/2019 Released orders: SunDec 05, 2019 11:20 AM by: JULIO MANZO [id number] CBC WITH AUTOMATED DIFF [#[id number]] Priority: STAT Cl ass: ER Collect Standing Order Information Remaining Occurrences:0/1 Interval:ONE TI ME Last released:12/05/2019 Released orders: SunDec 05, 2019 11:20 AM by: JULIO MANZO [id number] TROPONIN I [#[id number]] Priority: STAT Class: ER Collect Sta nding Order Information Remaining Occurrences:0/1 Interval:ONE TIME Last released:0 12/05/2019 Released orders: SunDec 05, 2019 11:20 AM by: JULIO MANZO [id number] MAGNESIUM [#[id number]] Priority: STAT Class: ER Collect Standing Order Information Remaining Occurrences:0/1 Interval:ONE TIME Last released:12/05/2019 Released orders : SunDec 05, 2019 11:20 AM by: JULIO MANZO [id number] LACTIC ACID [#[id number]] Priority: STAT Class: ER Collect Standing Order Information Remaining Occurrences:0/2 Interval:NOW THEN EVERY 4 HOURS Last released:12/05/2019 Released orders: SunDec 05, 2019 12:06 PM by: JULIO MANZO SunDec 05, 2019 11:20 AM by: JULIO MANZO [id number] PROTHROMBIN TIME + INR [#[id number]] Priority: STAT Class: ER Collect Standing Order Information Remain ing Occurrences:0/1 Interval:ONE TIME Last released:12/05/2019 Released orders : SunDec 05, 2019 11:20 AM by: JULIO MANZO [id number] URINALYSIS W/ RFLX MICROSCOPIC [# [id number]] Priority: STAT Class: ER Collect Standing Order Information Remaining Occurrences:0 /1 Interval:ONE TIME Last released:12/05/2019 Released orders: SunDec 05, 2019 11:20 AM by: JULIO MANZO [id number] METABOLIC PANEL, COMPREHENSIVE [#[id number]] Priority: STAT Cl ass: ER Collect Specimen Source: Plasma Specimen Collected: 12/05/2019 12:38 PM Resulting Agency: [facility] Test ID: MPL Released on: 12/05/2019 11:20 AM [id number] CBC WITH A UTOMATED DIFF [#[id number]] Priority: STAT Class: ER Collect Specimen Source: Whole Blood S pecimen Collected: 12/05/2019 12:38 PM Resulting Agency: [facility] Test ID: [id number] Released on: 12/05/2019 11:20 AM [id number] TROPONIN I [#[id number]] Prior ity: STAT Class: ER Collect Specimen Source: Plasma Specimen Collected: 12/05/2019 12:38 PM Resultin g Agency: [facility] Test ID: TROIP Released on: 12/05/2019 11:20 AM [id number] MAGNESIUM [#[id number]] Priority: STAT Class: ER Collect Specimen Source : Plasma Specimen Collected: 12/05/2019 12:38 PM Resulting Agency: [facility] Test ID: MGPL Released on: 12/05/2019 11:20 AM [id number] LACTIC ACID [#[id number]] P riority: STAT Class: ER Collect Specimen Source: Plasma Specimen Collected: 12/05/2019 12:40 PM Resultin g Agency: [facility] Test ID: LAC Released on: 12/05/2019 11:20 AM [id number] PROTHR OMBIN TIME + INR [#[id number]] Priority: STAT Class: ER Collect Specimen Source: Plasma Spe cimen Collected: 12/05/2019 12:38 PM Resulting Agency: [facility] Test ID: APTHR R eleased on: 12/05/2019 11:20 AM [id number] URINALYSIS W/ RFLX MICROSCOPIC [#[id number]] Prior ity: STAT Class: ER Collect Specimen Source: Urine Specimen Collected: 12/05/2019 2:45 PM Resultin g Agency: [facility] Test ID: UA Released on: 12/05/2019 11:20 AM [id number] LITHIU M [#[id number]] Priority: STAT Class: ER Collect Standing Order Information Remaining Occurrences:0/1 Interval:ONE TIME Last released:12/05/2019 Released orders : SunDec 05, 2019 11:40 AM by: MECHELLE GAMBLE [id number] LITHIUM [# [id number]] Priority: STAT Class: ER Collect Specimen Source: Serum Specimen Collected: 12/05/2019 12 :38 PM Resulting Agency: [facility] Test ID: LI Released on: 12/05/2019 11:40 AM [id number] LITHIUM [#[id number]] Canceled Priority: STAT Class: ER Collect Canceled by TENA, LAB IN [facility] on SunDec 05, 2019 11:42 AM Reason: Other Comment: Duplicate Standing Order Information Remaining Occurrences:0/1 Interval:ONE TIME Last released:0 12/05/2019 Released orders: SunDec 05, 2019 11:41 AM by: JULIO MANZO [id number] LITHIUM [#[id number]] Canceled Priority: STAT Class: ER Collect Specimen Collected: 12/05/2019 11:45 AM Resulting Agency: [facility] Test ID: LI Canceled by TENA, LAB IN [place] on SunDec 05, 2019 11:42 AM Reason: Other Comment: Duplicate Rele ased on: 12/05/2019 11:41 AM [id number] LACTIC ACID [#[id number]] Priority: STAT Cl ass: ER Collect Resulting Agency: [facility] Test ID: LAC Released on: 12/05/2019 12:06 PM [id number] AMMONIA [#[id number]] Priority: Routine Class: ER Collect Specimen Source: Blood Standing Order Information Remaining Occurrences:0/1 Interval:ONE TI ME Last released:12/05/2019 Released orders: SunDec 05, 2019 3:19 PM by: Javier KHAN [id number] AMMONIA [#[id number]] Priority: STAT Class: ER Collect Spe cimen Source: Blood Resulting Agency: [facility] Test ID: [id number] Released on: 12/05/2019 3:19 PM [id number] BILIRUBIN, CONFIRM [#[id number]] Priority: Routine Class : ER Collect Resulting Agency: [facility] Test ID: ICTO Standing Order Informat ion Remaining Occurrences:0/1 Released orders: SunDec 05, 2019 2:45 PM by: Automatic B atch Process [id number] BILIRUBIN, CONFIRM [#[id number]] Priority: Routine Class : ER Collect Specimen Source: Miscellaneous sample Specimen Collected: 12/05/2019 2:45 PM Resultin g Agency: [facility] Test ID: ICTO Released on: 12/05/2019 2:45 PM [id number] EKG, 12 LEAD, INITIAL [#[id number]] Priority: STAT Class: Hospital Performed Stand ing Order Information Remaining Occurrences:0/1 Interval:ONE TIME Last released:0 12/05/2019 Released orders: SunDec 05, 2019 11:20 AM by: JULIO MANZO Reason for Exam: -> Chest Pain [id number] EKG, 12 LEAD, INITIAL [#[id number]] Priority: STAT Class: H ospital Performed Resulting Agency: [facility] Test ID: [id number] Reason for Exam: -> Chest Pain Releas ed on: 12/05/2019 11:20 AM [id number] XR CHEST PORT [#[id number]] Priority: STAT Clas s: Hospital Performed Standing Order Information Remaining Occurrences:0/1 Interval:ONE TI ME Last released:12/05/2019 Released orders: SunDec 05, 2019 11:20 AM by: JULIO MANZO Reason for Exam -> Chest Pain [id number] CT HEAD WO CONT [#[id number]] Priority: S TAT Class: Hospital Performed Standing Order Information Remaining Occurrences:0/1 Inter haile:ONE TIME Last released:12/05/2019 Released orders: SunDec 05, 2019 11:20 AM by: JULIO MANZO Reason for Exam -> ams [id number] XR PELV AP ONLY [#[id number]] Priority: S TAT Class: Hospital Performed Standing Order Information Remaining Occurrences:0/1 Inter haile:ONE TIME Last released:12/05/2019 Released orders: SunDec 05, 2019 11:20 AM by: JULIO MANZO Reason for Exam -> fall [id number] XR CHEST PORT [#[id number]] Priority: STAT Class: Hospital Performed Specimen Collected: 12/05/2019 12:21 PM Resulting Agency: [facility] Test ID: [id number] Reason for Exam -> Chest Pain Released on: 12/05/2019 11:[id number] HEAD WO CONT [#[id number]] Priority: STAT Class: Hospital Performed Specimen Collected : 12/05/2019 12:43 PM Resulting Agency: [facility] Test ID: [id number] Reason for Exam -> ams R eleased on: 12/05/2019 11:20 AM [id number] XR PELV AP ONLY [#[id number]] Priority: STAT Class: Hospital Performed Specimen Collected: 12/05/2019 12:23 PM Resulting Agency: [facility] Test ID : [id number] Reason for Exam -> fall Released on: 12/05/2019 11:20 AM [id number] MRI BRAIN WO CONT [#[id number]] Priority: STAT Class: Hospital Performed Standing Order Information Remaining Occurrences:0/1 Interval:ONE TIME Last released:12/05/2019 Released orders : SunDec 05, 2019 3:19 PM by: JOSE KHAN Reason for Exam -> ams [id number] MRI BRA IN WO CONT [#[id number]] Priority: STAT Class: Hospital Performed Specimen Collected : 12/05/2019 5:03 PM Resulting Agency: [facility] Test ID: [id number] Reason for Exam -> ams R eleased on: 12/05/2019 3:19 PM [id number] CULTURE, BLOOD [#[id number]] Priority: Routi ne Class: ER Collect Specimen Source: Blood Standing Order Information Remaining Occurrences:0 /1 Interval:ONE TIME Last released:12/05/2019 Released orders: SunDec 05, 2019 11:20 AM by: JULIO MANZO [id number] CULTURE, BLOOD [#[id number]] Priority: STAT Cl ass: ER Collect Specimen Source: Blood Standing Order Information Remaining Occurrences:0/1 I nterval:ONE TIME Last released:12/05/2019 Released orders: SunDec 05, 2019 11:20 AM by: JULIO MANZO [id number] CULTURE, BLOOD [#[id number]] Priority: STAT Class: E R Collect Specimen Source: Blood Specimen Collected: 12/05/2019 12:38 PM Resulting Agency: [facility] Test ID: HBCS Released on: 12/05/2019 11:20 AM [id number] CULTURE, BLOOD [#[id number]] Priority: STAT Class: ER Collect Specimen Source: Blood Specimen Collected: 12/04 12:30 PM Resulting Agency: [facility] Test ID: HBCS Released on: 12/05/2019 11:20 AM CEFTRIAXONE 1 GRAM IVPB MBP [#[id number]] Priority: STAT Class: Normal An tibiotic Indications -> Sepsis of Unknown Etiology SODIUM CHLORIDE 0.9 % IV [#[id number]] Priority: STAT Class: Normal SODIUM CHLORIDE 0.9 % IV [#[id number]] Priority : STAT Class: Normal ENOXAPARIN 40 MG/0.4 ML SUB-Q SYRINGE [#[id number]] Priority: STAT Class: N ormal ENOXAPARIN 40 MG/0.4 ML SUB-Q SYRINGE [#[id number]] Priority: STAT Class: Normal FUROSEMIDE 10 MG/ML IJ SOLN [#[id number]] Priority: STAT Class: Normal CON53 IP CONSULT TO PS YCHIATRY [#[id number]] Priority: STAT Class: Hospital Performed Standing Order Information Remaining Occurrences:0/1 Interval:ONE TIME Last released:12/05/2019 Released orders : SunDec 05, 2019 11:42 AM by: JULIO MANZO Reason for Consult: -> si Did you call or spea k to the consulting provider? -> No Consult To -> si CON53 IP CONSULT TO PSYCHIATRY [#[id number]] Priority: STAT Class: Hospital Performed Reason for Consult: -> si Did you call or spea k to the consulting provider? -> No Consult To -> si Released on: 12/05/2019 11:42 AM CON62 IP CON SULT TO INTERNAL MEDICINE [#[id number]] Priority: STAT Class: Hospital Performed Standing Order Inf ormation Remaining Occurrences:0/1 Interval:ONE TIME Last released:12/05/2019 Release d orders: SunDec 05, 2019 2:16 PM by: CARLA OTERO Reason for Consult: -> Altered mental st atus, Dr. Canas to admit Did you call or speak to the consulting provider? -> Yes CON62 IP CONSULT TO INTERNAL MEDICINE [#[id number]] Priority: STAT Class: Hospital Performed Reason for Consu lt: -> Altered mental status, Dr. Canas to admit Did you call or speak to the consulting provider? -> Yes Released on: 12/05/2019 2:16 PM CON53 IP CONSULT TO PSYCHIATRY [#[id number]] Priority: STAT Class: Hospital Performed Standing Order Information Remaining Occurrences:0 /1 Interval:ONE TIME Last released:12/05/2019 Released orders: SunDec 05, 2019 2:41 PM by: RITIKA CANAS Reason for Consult: -> adverse med reaction Did you call or speak to t he consulting provider? -> No Consult To -> Dr Aguirre Schedule When? -> TODAY CON9 IP CONSULT TO N EUROLOGY [#[id number]] Priority: STAT Class: Hospital Performed Standing Order Information Remaining Occurrences:0/1 Interval:ONE TIME Last released:12/05/2019 Released orders : SunDec 05, 2019 2:41 PM by: RITIKA CANAS Reason for Consult: -> encephalopathy adverse drug reaction Did you call or speak to the consulting provider? -> No Consult To -> Dr Jacob Schedule When? -> TODAY CON53 IP CONSULT TO PSYCHIATRY [#[id number]] Priority: STAT Class: H ospital Performed Reason for Consult: -> adverse med reaction Did you call or speak to the consulting provider? -> No Consult To -> Dr Aguirre Schedule When? -> TODAY Released on: 12/05/2019 2:41 P M CON9 IP CONSULT TO NEUROLOGY [#[id number]] Priority: STAT Class: Hospital Performe d Reason for Consult: -> encephalopathy adverse drug reaction Did you call or speak to the consulting provider? -> No Consult To -> Dr Jacob Schedule When? -> TODAY Released on: 12/05/2019 2:41 P M [id number] INITIAL PHYSICIAN ORDER: OBSERVATION* [#[id number]] Priority: Routine Class: ADT Pend Trans milvia Standing Order Information Remaining Occurrences:0/1 Interval:ONE TIME Last release d:12/05/2019 Released orders: SunDec 05, 2019 2:00 PM by: LUZ ELENA GATES Patient Class: -> OBS ERVATION Admitting Diagnosis -> Encephalopathy acute Admitting Physician -> CARLA OTERO Attending Physician -> CARLA OTERO [id number] INITIAL PHYSICIAN ORDER: OBSERVATION* [#[id number]] Priority: Routine Class: ADT Pend Transfer Patient Class: -> OBSERVATION Admitting Diagnosis -> Encephalopathy acute Admitting Physician -> CARLA OTERO Attending Physician -> CARLA OTERO Released on: 12/05/2019 2:00 PM [id number] INITIAL PHYSICIAN ORDER: INPATIENT [#[id number]] Joan renner: Routine Class: ADT Pend Transfer Standing Order Information Remaining Occurrences:0/1 I nterval:ONE TIME Last released:12/05/2019 Released orders: SunDec 05, 2019 2:41 PM by: RITIKA CANAS Status: -> INPATIENT Inpatient Hospitalization Certified Necessary for the Following Re asons -> 3- . P- a- t- i- e- n- t r- e- c- e- i- v- i- n- g t- r- e- a- t- m- e- n- t t- h- a- t c- a- n o- n- l- y b- e p- r- o- v- i- d- e- d i- n a- n i- n- p- a- t- i- e- n- t s- e- t- t- i- n- g (- f- u- r- t- h- e- r c- l- a- r- i- f- i- c- a- t- i- o- n i- n H- &- P d- o- c- u- m- e- n- t- a- t- i- o- n- ) Admitting Diagnosis - > Zlo-kbyb-cgaxtzn adverse reaction to medication Admitting Physician -> RITIKA CANAS Physician -> RITIKA CANAS Estimated Length of Stay -> 5-7 Midnights Discharge Plan: -> Other (Specify) [id number] INITIAL PHYSICIAN ORDER: INPATIENT [#[id number]] Priority: Routine Class: ADT Pend Tr ansfer Standing Order Information Remaining Occurrences:0/1 Interval:ONE TIME Last rele ased:12/05/2019 Released orders: SunDec 05, 2019 2:41 PM by: RITIKA CANAS Status: -> INPAT IENT Inpatient Hospitalization Certified Necessary for the Following Reasons -> 3- . P- a- t- i- e- n- t r - e- c- e- i- v- i- n- g t- r- e- a- t- m- e- n- t t- h- a- t c- a- n o- n- l- y b- e p- r- o- v- i- d- e- d i- n a- n i- n- p- a- t- i- e- n- t s- e- t- t- i- n- g (- f- u- r- t- h- e- r c- l- a- r- i- f- i- c- a- t- i- o- n i- n H - &- P d- o- c- u- m- e- n- t- a- t- i- o- n- ) Admitting Diagnosis -> Rne-anjg-xjrewqq adverse reaction to medication Admitting Physician -> RITIKA CANAS Attending Physician -> MARY CANAS Estimated Length of Stay -> 5-7 Midnights Discharge Plan: -> Other (Specify) [id number] [facility] PHYSICIAN ORDER: INPATIENT [#[id number]] Priority: Routine Class: ADT Pend Transfer Status: -> INPATIENT Inpatient Hospitalization Certified Necessary for the Following Reasons -> 3- . P- a- t- i- e- n- t r - e- c- e- i- v- i- n- g t- r- e- a- t- m- e- n- t t- h- a- t c- a- n o- n- l- y b- e p- r- o- v- i- d- e- d i- n a- n i- n- p- a- t- i- e- n- t s- e- t- t- i- n- g (- f- u- r- t- h- e- r c- l- a- r- i- f- i- c- a- t- i- o- n i- n H - &- P d- o- c- u- m- e- n- t- a- t- i- o- n- ) Admitting Diagnosis -> Bop-gibd-iwlhtqx adverse reaction to medication Admitting Physician -> RITIKA CANAS Attending Physician -> MARY CANAS Estimated Length of Stay -> 5-7 Midnights Discharge Plan: -> Other (Specify) Released on: 12/05/2019 2:41 PM [id number] INITIAL PHYSICIAN ORDER: INPATIENT [#[id number]] Priority: Routine Class : ADT Pend Transfer Status: -> INPATIENT Inpatient Hospitalization Certified Necessary for the Following Reasons -> 3- . P- a- t- i- e- n- t r- e- c- e- i- v - i- n- g t- r- e- a- t- m- e- n- t t- h- a- t c- a- n o- n- l- y b- e p- r- o- v- i- d- e- d i- n a- n i- n- p- a- t- i- e- n- t s- e- t- t- i- n- g (- f- u- r - t- h- e- r c- l- a- r- i- f- i- c- a- t- i- o- n i- n H- &- P d- o- c- u- m- e- n- t- a- t- i- o- n- ) Adm itting Diagnosis -> Yck-blfb-fkvtlbk adverse reaction to medication Admitting Physician -> RITIKA CANAS Attending Physician -> RITIKA CANAS Estimated Length of Stay -> 5-7 Midnights Discharge Plan: -> Other (Specify) Released on: 12/05/2019 2:41 PM COD2 FULL CODE [#[id number]] Priority: STAT Class: Hospital Performed Standing Order Information Remaining Occurrences:0 /1 Interval:CONTINUOUS Last released:12/05/2019 Released orders: SunDec 05, 2019 2:41 PM by: RITIKA CANAS FULL CODE [#[id number]] Priority: STAT Cl ass: Hospital Performed Released on: 12/05/2019 2:41 PM [id number] EEG 12-26 HR W/VIDEO [# [id number]] Priority: Routine Class: Hospital Performed Standing Order Information Remaining Occurre nces:0/1 Interval:ONE TIME Last released:12/05/2019 Released orders: SunDec 04 3:19 PM by: JOSE KHAN Reason for Exam: -> ams [id number] EEG 12-26 HR W/VIDEO [#[id number]] Priority: STAT Class: Hospital Performed Resulting Agency: [facility] Test ID: [id number] Reason for Exam: -> ams Released on: 12/05/2019 3:19 Maxwell Corona MR#: [id number] * Rm: 441- 01Ht: 5' 5.75" Wt: 300 lb Code: Full Code Iso:Diagnosis:Encep halopathy acute [G93.40]Allergies: No Known Allergies -------- Current as of: 12/05/191806 NB=New Bag --aspirin (ASPIRIN) tablet 325 mg #[id number] Admin Amount: 1 Tab (1 x 325 mg Tab) Ordered Dose: 325 mg Route: Oral Freq: ONCE Start Date: 12/24/13 No administration times (back 96 hours, ahead 96 hours). ------diphenhydrAMINE (BENADRYL) capsule 50 mg #[id number] Admin Amount: 1 Cap (1 x 50 mg Cap) Ordered Dose: 50 mg Route: Ora l Freq: NOW Start Date: 12/24/13 No administration times (back 96 hours, ahe ad 96 hours). ------diazepam (VALIUM) tablet 5 mg #[id number] Admin Amount: 1 Tab (1 x 5 mg Tab) Ordered Dose: 5 mg Route: Oral Freq: ON CE Start Date: 12/24/13 No administration times (back 96 hours, ahead 96 hours). ------lidocaine (XYLOCAINE) 10 mg/mL (1 %) injection 1-30 mL #[id number] Admin Amount: 1-30 mL Ordered Dose: 1-30 mL Route: IntraDERMal Freq: ONCE Start Date: 12/24/13 No administration times (back 96 hours, ahead 96 hours). ------heparin (PF) 2 units/ml in NS infusion 2,000 Units #[id number] Admin Amount: 1,000 mL = 2,000 Units of 2 Units/mL Ordered Dose: 1,000 mL [place]: Irrigation Freq: ONCE Start Date: 12/24/13 No administration times (back 96 hours, ahead 96 hours). ------heparinized saline 2 units/mL infusion 1,000 Units #[id number] Admin Amount: 500 mL = 1,000 Units of 2 Units/mL Ordered Dose: 500 mL [place]: IntraarTERial Freq: ONCE Start Date: 12/24/13 No administration times (back 96 hours, ahead 96 hours). ------0.9% sodium chloride infusion #[id number] Ordered Dose: 75 mL/hr Route: IntraVENous Freq: CONTINUOUS Start Date: 12/24/13 Rate: 75 mL/hr Duration: No administration times (back 96 hours, ahead 96 hours). ------ioversol (OPTIRAY) 320 mg iodine/mL contrast injection 1-100 mL #[id number] Admin Amount: 1-100 mL Ordered Dose: 1-100 mL Route: IntraVENous Freq: RAD O NCE Start Date: 12/24/13 No administration times (back 96 hours, ahead 96 hours).Maxwell Bray MR#: [id number] * Rm: 441-01Ht: 5' 5.75" Wt: 300 lb Cod e: Full Code Iso:Diagnosis:Encephalopathy acute [G93.40]Allergies: No Known Allergies -------- Current as of: 12/05/191806 NB=New Bag --gadobutrol (GADAVIST) contrast solution 1-10 mL #[id number] Admin Amount: 1-10 mL Ordered Dose: 1-10 mL Route: IntraVENous Freq: RAD O NCE Start Date: 01/13/14 No administration times (back 96 hours, ahead 96 hours). ------sodium chloride (NS) flush 5-10 mL #[id number] Admin Amount: 5-10 mL Ordered Dose: 5-10 mL Route: IntraVENous Freq: RAD ONCE Start Date: 01/13/14 No administration times (back 96 hours, ahead 96 hours). ------sodium chloride (NS) 0.9 % flush #[id number] Ordered Dose: Route: Freq: Start Date: 01/13 No administration times (back 96 hours, ahead 96 hours). ------morphine injection 2 mg #[id number] Admin Amount: 1 mL = 2 mg of 2 mg/mL Ordered Dose: 2 mg Route: IntraVENous Freq: NOW Start Date: 03/13/15 No administration times (back 96 hours, ahe ad 96 hours). ------influenza vaccine (4 yr+)(PF) (FLUCELVAX QUAD) inj ection 0.5*#[id number] Admin Amount: 0.5 mL Ordered Dose: 0.5 mL Route: IntraMUSCular Freq: PRIOR TO DISCHARGE Start Date: 03/30/16 No administration times (back 96 hours, ahead 96 hours). ------oxyCODONE-acetaminophen (PERCOCET) 5-325 mg per tablet 1 Tab #[id number] Admin Amount: 1 Tab Ordered Dose: 1 Tab Route: Oral Freq: NOW Start Date: 09/07/17 No administration times (back 96 hours, ahead 96 hours). ------barium sulfate (READICAT) 2.1 % (w/v), 2.0 % (w /w) oral suspension 9*#[id number] Admin Amount: 900 mL Ordered Dose: 900 mL Route: Oral Delgado q: RAD ONCE Start Date: 10/15/17 No administration times (back 96 hours, ahead 96 hours). ------iopamidol (ISOVUE 300) 61 % contrast injection 100 mL #[id number] Admin Amount: 100 mL Ordered Dose: 100 mL Route: IntraVENous Freq: RAD ONC E Start Date: 10/15/17 No administration times (back 96 hours, ahead 96 hours).Maxwell Bray MR#: [id number] * Rm: 441-01Ht: 5' 5.75" Wt: 300 lb Code: Full Code Iso:Diagnosis:Encephalopathy acute [G93.40]Allergies: No Known Allergies -------- Current as of: 12/05/19 180 NB=New Bag --risperiDONE (RisperDAL m-tabs) disintegrating tablet 1 mg #[id number] Admin Amount: 1 Tab (1 x 1 mg Tab) Ordered Dose: 1 mg Route: Oral Freq: ONCE Start Date: 12/24/17 No administration times (back 96 hours, ahead 96 hours). ------ALPRAZolam (XANAX) tablet 2 mg #[id number] Admin Amount: 4 Tab (4 x 0.5 mg Tab) Ordered Dose: 2 mg Route: Ora l Freq: NOW Start Date: 12/24/17 No administration times (back 96 hours, ahe ad 96 hours). ------lamoTRIgine (LaMICtal) tablet 100 mg #[id number] Admin Amount: 1 Tab (1 x 100 mg Tab) Ordered Dose: 100 mg Route: Oral Delgado q: ONCE Start Date: 12/24/17 No administration times (back 96 hours, ahead 96 hours). ------OLANZapine (ZyPREXA zydis) disintegrating tablet 5 mg #[id number] Admin Amount: 1 Tab (1 x 5 mg Tab) Ordered Dose: 5 mg Route: Oral Delgado q: ONCE Start Date: 12/25/17 No administration times (back 96 hours, ahead 96 hours). ------LORazepam (ATIVAN) tablet 2 mg #[id number] Admin Amount: 4 Tab (4 x 0.5 mg Tab) Ordered Dose: 2 mg Route: Ora l Freq: NOW Start Date: 12/25/17 No administration times (back 96 hours, ahe ad 96 hours). ------LORazepam (ATIVAN) injection 1 mg #[id number] Admin Amount: 0.5 mL = 1 mg of 2 mg/mL Ordered Dose: 1 mg Route: Int raVENous Freq: NOW Start Date: 12/25/17 No administration times (back 96 hours, ahe ad 96 hours). ------barium sulfate (EZ PAQUE) 96 % (w/w) contrast suspension 17 6 g #[id number] Admin Amount: 176 g Ordered Dose: 176 g Route: Oral Freq: RAD ONCE Start Date: 08/02/18 No administration times (back 96 hours, ahead 96 hours). ------barium sulfate (EZ PAQUE) 96 % (w/w) contrast s uspension 176 g #[id number] Admin Amount: 176 g Ordered Dose: 176 g Route: Oral Delgado q: RAD ONCE Start Date: 08/02/18 No administration times (back 96 hours, ahead 96 hours).Maxwell Ritter MR#: [id number] * Rm: 441-01Ht: 5' 5.75" Wt: 300 lb Cod e: Full Code Iso:Diagnosis:Encephalopathy acute [G93.40]Allergies: No Known Allergies -------- Current as of: 12/05/191806 NB=New Bag --aspirin chewable tablet 162 mg #[id number] Admin Amount: 2 Tab (2 x 81 mg Tab) Ordered Dose: 162 mg Route: Oral Freq: NOW Start Date: 08/10/19 No administration times (back 96 hours, ahead 96 hours). ------0.9% sodium chloride infusion 1,000 mL #[id number] Admin Amount: 1,000 mL Ordered Dose: 1,000 mL Route: IntraVENous Freq: ONC E Start Date: 08/16/19 Rate: 1,000 mL/hr Duration: No administration ti mes (back 96 hours, ahead 96 hours). ------methylPREDNISolone (PF) (Solu-MEDROL) injection 125 mg #[id number] Admin Amount: 2 mL = 125 mg of 125 mg/2 mL Ordered Dose: 125 mg Route: Int raVENous Freq: NOW Start Date: 08/16/19 No administration times (back 96 hours, ahe ad 96 hours). ------aspirin chewable tablet 162 mg #[id number] Admin Amount: 2 Tab (2 x 81 mg Tab) Ordered Dose: 162 mg Route: Oral Delgado q: NOW Start Date: 08/16/19 No administration times (back 96 hours, ahead 96 hours). ------haloperidoL (HALDOL) tablet 5 mg #[id number] Admin Amount: 1 Tab (1 x 5 mg Tab) Ordered Dose: 5 mg Route: Oral Delgado q: ONCE Start Date: 10/30/19 No administration times (back 96 hours, ahead 96 hours). ------cefTRIAXone (ROCEPHIN) 1 g in 0.9% sodium chloride (MBP/ADV) 50 m L M*#[id number] Admin Amount: 1 g Ordered Dose: 1 g Route: IntraVENous Freq: NOW Start Date: 12/05/19 Rate: 100 mL/hr Duration: 30 Minutes Administration linda es (back 96 hours, ahead 96 hours): 12/05/19: 1428NB -----0.9% sodium chloride infusion #[id number] Ordered Dose: 125 mL/hr Route: IntraVENous Freq: CONTINUOUS Start Date: 12/05/19 Rate: 125 mL/hr Duration: Administration times (back 96 hours, ahead 96 hours): 12/05/19: 1408Maxwell Cain MR#: [id number] * Rm : 441-01Ht: 5' 5" Wt: 300 lb Code: Full Code Iso:Diagnosis:Encephalopathy acute [G93. 40]Allergies: No Known Allergies -------- Current as of: 12/05/19 180 NB=New Bag --enoxaparin (LOVENOX) injection 40 mg #[id number] Admin Amount: 0.4 mL = 40 mg of 40 mg/0.4 mL Ordered Dose: 40 mg [place]: SubCUTAneous Freq: EVERY 24 HOURS Start Date: 12/05/19 Administration times (back 96 h [facility] 96 hours): 12/05/19: 209912/06/19: 209912/07/19: 209912/08/19: 2099 ---furosemide (LASIX) injection 20 mg #[id number] Admin Amount: 2 mL = 20 mg of 10 mg/mL Ordered Dose: 20 mg [place]: IntraVENous Freq: ONCE Start Date: 12/05/19 Administration times (back 96 hours, ea 96 hours): 12/05/19: 1449 ED Current OP MedicationsrisperiDONE (RisperDAL) 2 mg tabletSig:Take 1 Tab by mouth daily.Dispense Amount:30 TabStart Date:12/04/2019End Date:Doc. Provider: Ritika Toledo MDamitriptyline (ELAVIL) 100 mg tabletSi mg.Dispense Amount:Start Date:11/12/2019End Date:Doc. Provider: Danilo BustosVraylar 3 mg capsuleSig:Take 6 mg by mouth nightly. Prescription is 6 mg caps ule Indications: bipolar depressionDispense Amount:Start Date:09/03/2019End Date:Doc. Provider: Danilo Helmslithium carbonate 150 mg capsuleSig:Take 300 mg by mouth two (2) times daily (with meals).D ispense Amount:Start Date:End Date:Doc. Provider: Paul Bradford MDclonazePAM (KLONOPIN) 2 mg tabletSig:T stephanie 1 mg by mouth two (2) times daily as needed.Dispense Amount:Start Date:End Date:Doc. Provider: Paul Bradford MD ED Prescriptions None on FileFollow-up Inf ormationFollow-up With:Ritika Canas MDDetails:Comments:Contact Info:[place] [address] [phone] Name Value Range Interpretation Code Description Data Melani rce(s) Supporting Document(s ) ID Date Data Source [id number] 12/05/2019 04:36:09 PM EDT [facility] The history is provided by the patient a nd the EMS personnel.11:17 AM: Maxwell Bray is a 49 y.o. male with h/o anxie ty and depression whopresents to the ED via EMS c/o generalized weakness. He was in bed last nightwhen he fell on to the ground, and was unable to get up. He is weak and cantwalk. He denies hip pain, or any other constitutional symptoms at this time. He expressed some suicidal thoughts over the past months, with no plan. No othercompl aints at this time.Past Medical History:Diagnosis Date Other unknown an d unspecified cause of morbidity or mortality cardiac cath at [facility] approx 6-8 months ag o Other unknown and unspecified cause of morbidity or mortality concussions Othe r unknown and unspecified cause of morbidity or mortality "periodic disorientation" Other unknown and unspecified cause of morbidity or mortality anxiety Psychiat rina disorder anxiety, depressionPast Surgical History:Procedure Laterality Date ABDOM EN SURGERY PROC UNLISTED gastric bypass 2009 HX GASTRIC BYPASS roue-en-y HX ORTHOPAE DIC 1985 aarthroscopic knee surgery HX ORTHOPAEDIC 1990 broken footFamily Hist ory:Problem Relation Age of Onset Diabetes Mother Heart Disease MotherSocial Histo rySocioeconomic History Marital status: Spouse name: Not on file Numbe r of children: Not on file Years of education: Not on file Highest educatio n level: Not on fileOccupational History Not on fileSocial Needs Financial resource strain: Not very hard Food insecurity Worry: Never true Inability: Never true Transportation needs Medical: No Non-medical: NoTobacco Use Smoking stat us: Never Smoker Smokeless tobacco: Never UsedSubstance and Sexual Activity Alcoh ol use: No Frequency: Never Drinks per session: 1 or 2 Binge frequency: Never Drug use: No Sexual activity: Not Currently Partners: FemaleLifestyle Physical act ivity Days per week: 0 days Minutes per session: 0 min Stress: Very muchRelatio nships Social connections Talks on phone: Once a week Gets together: Once a week Attends shinto service: More than 4 times per year Active member of club or organ ization: No Attends meetings of clubs or organizations: Never Relationship statu s: Intimate partner violence Fear of current or ex partner: No Emotionall y abused: No Physically abused: No Forced sexual activity: NoOther Topics Concern Service No Blood Transfusions No Caffeine Concern No Occupational Exposu re No Hobby Hazards No Sleep Concern Yes Stress Concern Yes Weight Concern Yes Special Diet No Back Care No Exercise No Bike Helmet No Seat Belt Yes Self-Exam s NoSocial History Narrative Not on fileALLERGIES: Patient has no known koby rgies.Review of SystemsConstitutional: Negative for chills and fever.HENT: Nega tive for rhinorrhea and sore throat.Eyes: Negative for photophobia and visual dist urbance.Respiratory: Negative for cough and shortness of breath.Cardiovascular: Nega tive for chest pain and leg swelling.Gastrointestinal: Negative for abdominal pain, diarrhea, nausea and vomiting.Genitourinary: Negative for dys uria and hematuria.Musculoskeletal: Negative for back pain and myalgias.Skin: Negativ e for color change and pallor.Neurological: Positive for weakness. Negative for seiz ures and syncope.Psychiatric/Behavioral: Positive for suicidal ideas.Vitals: 11/23 08/14 1143 12/05/19 1144 12/05/19 1400 12/05/19 1422BP: (!) 161/108 (!) 150/99 (!) 150/99Pulse: (!) 102 (!) 102 97 95Resp: Temp: 98.8 F (37.1 C) 97.9 F (36.6 C)SpO2: 92% 93% 92%Weight:Height:1144 AM Pulse Oximetry reading is 92 % on room air, which indicates normaloxygenation per Julio Manzo MD.Ph ysical ExamVitals signs and nursing note reviewed.Constitutional: General: He i s not in acute distress. Appearance: He is well-developed. He is obese.HENT: Head : Normocephalic and atraumatic.Eyes: Pupils: Pupils are equal, round, and frantz ctive to light.Neck: Musculoskeletal: Neck supple. Vascular: No JVD.Cardiovascula r: Rate and Rhythm: Normal rate and regular rhythm. Heart sounds: Normal heart melani nds.Pulmonary: Effort: Pulmonary effort is normal. No respiratory distress. Breat h sounds: Normal breath sounds. No wheezing or rales.Abdominal: General: There is no distension. Palpations: Abdomen is soft. Tenderness: There is no abdominal tend erness. There is no guarding orrebound.Musculoskeletal: Normal range of motion. General: No tenderness.Skin: General: Skin is warm and dry.Neurologic al: Mental Status: He is oriented to person, place, and time. He is lethargic .MDMNumber of Diagnoses or Management OptionsAltered mental status, unspecifie d altered mental status type:Amount and/or Complexity of Data ReviewedClinical lab tests: ordered and reviewedTests in the radiology section of CPT : ordered and r eviewedDecide to obtain previous medical records or to obtain history from someon eother than the patient: yesObtain history from someone other than the patient: yes Review and summarize past medical records: yesDiscuss the patient with other provid ers: yesIndependent visualization of images, tracings, or specimens: yesProElan Monahan Dennis, MD, reviewed the patient's past history, allergies and homemedications a s documented in the nursing chart.Labs:Recent Results (from the past 12 hour(s))EKG, 1 2 LEAD, INITIAL Collection Time: 12/05/19 11:41 AMResult Value Ref Range Ventricul ar Rate 102 BPM Atrial Rate 102 BPM P-R Interval 174 ms QRS Duration 104 ms Q-T Interval 395 ms QTC Calculation (Bezet) 515 ms Calculated P Parkman 40 degrees Calculat ed R Parkman 41 degrees Calculated T Parkman 147 degrees Diagnosis Sinus tachycardiaProb able left atrial enlargementAbnormal R-wave progression, early transitionNonspecific T abnormalities, lateral leadsProlonged QT intervalMETABOLIC PANEL, COMPREHENSIVE C ollection Time: 12/05/19 12:38 PMResult Value Ref Range Sodium 134 (L) 136 - 145 mmol/ L Potassium 3.5 3.5 - 5.1 mmol/L Chloride 104 98 - 107 mmol/L CO2 26 21 - 32 mmol/L An ion gap 7 (L) 10 - 20 mmol/L Glucose 127 (H) 74 - 106 mg/dL BUN 21 (H) 7 - 18 mg/dL C reatinine 0.94 0.70 - 1.30 mg/dL GFR est AA >60 >60 ml/min/1.73m2 GFR est non-AA >60 >60 ml/min/1.73m2 Calcium 8.4 (L) 8.5 - 10.1 mg/dL Bilirubin, total 0.9 0.2 - 1.0 mg/ dL ALT (SGPT) 34 13 - 61 U/L AST (SGOT) 47 (H) 15 - 37 U/L Alk. phosphatase 171 (H) 45 - 117 U/L Protein, total 7.5 6.4 - 8.2 g/dL Albumin 3.8 3.5 - 4.7 g/dL Globulin 3.7 1.7 - 4.7 g/dL A-G Ratio 1.0 0.7 - 2.8CBC WITH AUTOMATED DIFF Collection Ti me: 12/05/19 12:38 PMResult Value Ref Range WBC 12.4 (H) 4.8 - 10.6 K/uL RBC 5.03 4. 70 - 6.00 M/uL HGB 15.4 14.0 - 18.0 g/dL HCT 45.8 42.0 - 52.0 % MCV 91.1 81.0 - 94.0 FL MCH 30.6 27.0 - 35.0 PG MCHC 33.6 30.7 - 37.3 g/dL RDW 12.9 11.5 - 14.0 % PLATELE T 164 130 - 400 K/uL MPV 9.5 9.2 - 11.8 FL NRBC 0.0 0 PER 100 WBC ABSOLUTE NRBC 0.0 0 0.0 - 0.01 K/uL NEUTROPHILS 80 (H) 48.0 - 72.0 % LYMPHOCYTES 8 (L) 18.0 - 40.0 % M ONOCYTES 10 2.0 - 12.0 % EOSINOPHILS 1 0.0 - 7.0 % BASOPHILS 0 0.0 - 3.0 % IMMATURE G RANULOCYTES 0 0 - 0.5 % ABS. NEUTROPHILS 10.0 (H) 2.3 - 7.6 K/UL ABS. LYMPHOCYTES 1.0 0.9 - 4.2 K/UL ABS. MONOCYTES 1.2 0.1 - 1.7 K/UL ABS. EOSINOPHILS 0.1 0.0 - 1.0 K/UL ABS. BASOPHILS 0.0 0.0 - 0.4 K/UL ABS. IMM. GRANS. 0.1 0.0 - 0.17 K/UL DF AUTOMATEDT ROPONIN I Collection Time: 12/05/19 12:38 PMResult Value Ref Range Troponin-I, Qt. 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 Interpretedby Julio Rosenberg MD.Radiology:CXR Results (Last 48 hours) 12/05/19 1214 XR CHEST PORT Lucille l result Narrative: CHEST 1 view (s)HISTORY: Chest pain.COMPARISON: 10/29/2019.The prachi ent is rotated towards the right and there is a poor inspiratory effort.There is a pos sible left basal infiltrate. The remainder of the lungs, pleura,mediastinum and visual ized bony thorax appear to be normal. The left hilum isnormal. The right hilum is obscured. There may be borderline or mildcardiomegaly.IMPRESSSION: Poor inspi ratory effort. Possible left basal infiltrate.CT Results (Last 48 hours) 0 12/05/[address] HEAD WO CONT Final result Impression: IMPRESSION:1. B/L maxillary sinus polyposis.2. Otherwise unremarkable non-contrast enhanced CT of the brain. N arrative: CT HEAD W/O CONTRASTPRIOR: Multiple: Most recent October 29, 2019: "No a cute intracranial pathologyseen."HISTORY: Limited to that provided by the emergenc y department at the time ofthis examination; BIBA for fall in the middle of the night while going tobathroom C/p left hip pain?TECHNICAL FACTORS: Spiral images fr om the base of the skull to the vertex wereobtained without intravenous contras t. From the data set coronal and sagittalreconstruction images were creat ed on an independent workstation. Utilizingmanufacturer algorithms the exa mination was performed to optimize image qualitywhile utilizing the lowest possib le ionizing radiation dose. One or more of thefollowing doses reduction techniques was used: Decreasing the mA and or kV,automatic exposure control and iterat sarah reconstruction algorithm.FINDINGS:B/L maxillary sinus polyposis is identified. The remainder of the visualizedsinuses, orbits and osseous calvarium are unremar kable.The hinojosa and white matter attenuation of the cerebellum and cerebral hemispher esis unremarkable and no intra / extra-axial hematoma, fluid / mass / mass effectnor midline shift is seen upon the sulci or ventricular system.Radiology interpretat ion reviewed by Julio Manzo MD<EMERGENCY DEPARTMENT CASE SUMMARY>ED Course:49 y.o . male presented to the ED c/o generalized weakness and fall out of bedlast night.W ill check labs, troponin, EKG, cardiac monitoring, CXR, and head CT. 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 Will consult ED psychiatry.Psychiatry saw and evaluat ed the patient, and they cannot hold the patient athis time, and is requesting a medical admission.228 PM Discussed the patient's case with Dr. Canas (PCP) who wi ll admit thepatient.COVID-19 suspected. Droplet precautions were taken.The patie nt had a surgical mask on upon entering the room: yesProvider PPE donned, including: Surgical mask: yesN95 mask: yesEye Protection: yesGloves: yesGown: yesPatie nt was seen during Covid-19 pandemic which may have affected standard ofcare.Final Impression/Diagnosis:Encounter Diagnoses ICD-10-CM ICD-9-CM1. Altered mental stat us, unspecified altered mental status type R41.82 780.97Patient condition at time o f disposition: StableI have reviewed the following home medications:Prior to Admi ssion medicationsMedication Sig Start Date End Date Taking? Authorizing Providerris periDONE (RisperDAL) 2 mg tablet Take 1 Tab by mouth daily. 12/04/19 Ritika Canas MD amitriptyline (ELAVIL) 100 mg tablet 200 mg. 11/12/19 Provider, DainloVraylar 3 mg capsule Take 6 mg by mouth nightly. Prescription is 6 mg capsuleIndications: bipolar depression 09/03/19 Provider, Historicallithium carbonate 150 mg capsu le Take 300 mg by mouth two (2) times daily (withmeals). Other, Phys, MDclonazePA M (KLONOPIN) 2 mg tablet Take 1 mg by mouth two (2) times daily asneeded. Other, Phys, MagalyoJulio MD IKishore, am serving as a scribe to document services personallyperformed by Julio Manzo MD based on my observation and the provider'sstat ements to me.I, Julio Manzo MD, attest that the person(s) noted above, acting as mys cribe(s) noted above, has observed my performance of the services and hasdocum ented them in accordance with my direction. I have personally reviewed theabove inform ation and have ordered and reviewed the diagnostic studies, unlessotherwise note d.+ Name Value Range Interpretation Code Description Data Melani rce(s) Supporting Document(s ) ID Date Data Source [id number] 12/05/2019 04:05:06 PM EDT [facility] [address] [place] [address] [email or web address] CONSULT NOTEPatient: Maxwell Bray Se x: male DOA: 12/05/2019Date of : 1970 Age: 49 y.o. LOS: LOS: 0 days Chief ComplaintPatient presents with Fall FatigueHPIBrjose Bray is a 49 y.o. m vera with hx of anxiety and depression, bipolardisorder, and seizure who present s to the ED via EMS s/p fall and generalizedweakness. Patient reports his legs gave away and fell to the ground last nightwhile getting up from bed. Patient denies LOC or head trauma, nausea, vomiting,focal numbness or sensory fuentes es. Lab significant of [place] 1.53 and elevatedliver enzymes. Neurology consult ed for encephalopathy/drug adverse reaction.Past Medical History:Diagnosis Date Other unknown and unspecified cause of morbidity or mortality cardiac cath at [facility] approx 6-8 months ago Other unknown and unspecified cause of morbidity or mortal ity concussions Other unknown and unspecified cause of morbidity or mortal ity "periodic disorientation" Other unknown and unspecified cause of morbidity or mo rtality anxiety Psychiatric disorder anxiety, depressionSocial HistoryTobacco Use Smoking status: Never Smoker Smokeless tobacco: Never UsedSubstance Use Topics Alcohol use: No Frequency: Never Drinks per session: 1 or 2 Binge frequency: Ne ulises Drug use: NoFamily HistoryProblem Relation Age of Onset Diabetes Mother Heart Disease MotherCurrent Facility-Administered MedicationsMedicat ion Dose Route Frequency 0.9% sodium chloride infusion 125 mL/hr IntraVENous CONTINUOUS enoxaparin (LOVENOX) injection 40 mg 40 mg SubCUTAneous Q24H furosemi de (LASIX) injection 20 mg 20 mg IntraVENous ONCECurrent Outpatient MedicationsMedica tion Sig risperiDONE (RisperDAL) 2 mg tablet Take 1 Tab by mouth daily. amitriptylin e (ELAVIL) 100 mg tablet 200 mg. Vraylar 3 mg capsule Take 6 mg by mouth nightly. P rescription is 6 mg capsuleIndications: bipolar depression lithium carbonate 15 0 mg capsule Take 300 mg by mouth two (2) times daily(with meals). clonazePAM (KL ONOPIN) 2 mg tablet Take 1 mg by mouth two (2) times daily asneeded.No Known Allerg iesROS-fever,-chills,-sob,-chest painVisit VitalsBP (!) 150/99 (BP 1 Location: Righ t arm, BP Patient Position: At rest)Pulse 95Temp 98.2 F (36.8 C)Resp 20Ht 5' 5.7 5" (1.67 m)Wt 300 lb (136.1 kg)SpO2 92%BMI 48.79 kg/m EXAMGeneralW/D W/N NAD No C/C /EMental StatusA&O x 2 ( orient to self and place, president = Trump) + hypophoniaCr anial NervesEOMS full VFF pupils equal and reactive sensation intactMotor4/5 throug hout UEs - Arms antigravity with left arm slight drift and bilateralintermittent t remors. + Intermittent jerk both UEs3/5 LEsSensationIntact to LTReflexesDTRs tra ce and symmetrical, toes downgoingGait.CerebellumDysmetria right and left finger to nose testing , gait deferredLab DataRecent Results (from the past 24 hour(s))EKG, 12 LEAD, INITIAL Collection Time: 12/05/19 11:41 AMResult Value Ref Range Ventricular Rate 102 BPM Atrial Rate 102 BPM P-R Interval 174 ms QRS Duration 104 ms Q-T Interval 395 ms QTC Calculation (Bezet) 515 ms Calculated P Parkman 40 degrees Calculated R Parkman 41 degrees Calculated T Parkman 147 degrees Diagnosis Sinus tachycardiaProbable left atrial enlargementAbnormal R-wave progression, early transitionNonspecific T abnormalities, lateral leadsProlonged QT intervalMETABO LIC PANEL, COMPREHENSIVE Collection Time: 12/05/19 12:38 PMResult Value Ref Range Sodium 134 (L) 136 - 145 mmol/L Potassium 3.5 3.5 - 5.1 mmol/L Chloride 104 98 - 107 m mol/L CO2 26 21 - 32 mmol/L Anion gap 7 (L) 10 - 20 mmol/L Glucose 127 (H) 74 - 106 mg/dL BUN 21 (H) 7 - 18 mg/dL Creatinine 0.94 0.70 - 1.30 mg/dL GFR est AA >60 >60 ml/ min/1.73m2 GFR est non-AA >60 >60 ml/min/1.73m2 Calcium 8.4 (L) 8.5 - 10.1 mg/dL Bilirubin, total 0.9 0.2 - 1.0 mg/dL ALT (SGPT) 34 13 - 61 U/L AST (SGOT) 47 (H) 15 - 37 U/L Alk. phosphatase 171 (H) 45 - 117 U/L Protein, total 7.5 6.4 - 8.2 g/d L Albumin 3.8 3.5 - 4.7 g/dL Globulin 3.7 1.7 - 4.7 g/dL A-G Ratio 1.0 0.7 - 2.8CBC WI TH AUTOMATED DIFF Collection Time: 12/05/19 12:38 PMResult Value Ref Range WBC 12.4 (H) 4.8 - 10.6 K/uL RBC 5.03 4.70 - 6.00 M/uL HGB 15.4 14.0 - 18.0 g/dL HCT 45.8 42.0 - 52.0 % MCV 91.1 81.0 - 94.0 FL MCH 30.6 27.0 - 35.0 PG MCHC 33.6 30.7 - 37.3 g/d L RDW 12.9 11.5 - 14.0 % PLATELET 164 130 - 400 K/uL MPV 9.5 9.2 - 11.8 FL NRBC 0.0 0 PER 100 WBC ABSOLUTE NRBC 0.00 0.0 - 0.01 K/uL NEUTROPHILS 80 (H) 48.0 - 72.0 % LY MPHOCYTES 8 (L) 18.0 - 40.0 % MONOCYTES 10 2.0 - 12.0 % EOSINOPHILS 1 0.0 - 7.0 % B ASOPHILS 0 0.0 - 3.0 % IMMATURE GRANULOCYTES 0 0 - 0.5 % ABS. NEUTROPHILS 10.0 (H) 2. 3 - 7.6 K/UL ABS. LYMPHOCYTES 1.0 0.9 - 4.2 K/UL ABS. MONOCYTES 1.2 0.1 - 1.7 K/UL A BS. EOSINOPHILS 0.1 0.0 - 1.0 K/UL ABS. BASOPHILS 0.0 0.0 - 0.4 K/UL ABS. IMM. G RANS. 0.1 0.0 - 0.17 K/UL DF AUTOMATEDTROPONIN I Collection Time: 06/13 12:38 PMResult Value Ref Range Troponin-I, Qt. <0.02 0.00 - 0.05 NG/MLM AGNESIUM Collection Time: 12/05/19 12:38 PMResult Value Ref Range Magnesium 2.9 ( H) 1.6 - 2.6 mg/dLPROTHROMBIN TIME + INR Collection Time: 12/05/19 12:38 PMResult Value Ref Range Prothrombin time 10.6 9.4 - 11.1 sec INR 1.0 0.8 - 1.2LITHIUM Colle tion Time: 12/05/19 12:38 PMResult Value Ref Range [place] level 1.53 (HH) 0.6 - 1.2 MMOL/LLACTIC ACID Collection Time: 12/05/19 12:40 PMResult Value Ref Range Lactic ac id 1.1 0.4 - 2.0 MMOL/LImaging DataCt Head Wo ContResult Date: 12/05/2019CT HEAD W/O CO NTRAST PRIOR: Multiple: Most recent October 29, 2019: "No acuteintracranial pathology se en." HISTORY: Limited to that provided by the emergencydepartment at the time of this examination; BIBA for fall in the middle of thenight while going to bathroom C/p le ft hip pain? TECHNICAL FACTORS: Spiralimages from the base of the skull to the vertex were obtained withoutintravenous contrast. From the data set coronal and sagittal r econstructionimages were created on an independent workstation. Utilizing [facility] factureralgorithms the examination was performed to optimize image quality whil eutilizing the lowest possible ionizing radiation dose. One or more of thefollo wing doses reduction techniques was used: Decreasing the mA and or kV,automatic ex posure control and iterative reconstruction algorithm. FINDINGS: B/Lmaxillary sinus polyposis is identified. The remainder of the visualizedsinuses, orbits and osseous ca lvarium are unremarkable. The hinojosa and whitematter attenuation of the cerebellu m and cerebral hemispheres is unremarkableand no intra / extra-axial hematoma, fluid / mass / mass effect nor midlineshift is seen upon the sulci or ventricular system.IMP RESSION: 1. B/L maxillary sinus polyposis. 2. Otherwise unremarkablenon-contrast enhan lorenza CT of the brain.EKG:Results for orders placed or performed during the hospital encounter of 10/29/19EKG, 12 LEAD, INITIALResult Value Ref Range Ventricula r Rate 102 BPM Atrial Rate 102 BPM P-R Interval 174 ms QRS Duration 104 ms Q-T Interval 395 ms QTC Calculation (Bezet) 515 ms Calculated P Parkman 40 degrees Calculat ed R Parkman 41 degrees Calculated T Parkman 147 degrees Diagnosis Sinus tachycardiaProb able left atrial enlargementAbnormal R-wave progression, early transitionNonspecific T abnormalities, lateral leadsProlonged QT intervalResults for orders placed or per formed in visit on 11/04/13AMB POC EKG ROUTINE W/ 12 LEADS, INTER & REP Impress ion EKG: sinus rhythm normal ECGAssessment:Patient Active Problem Lis tDiagnosis Code H/O gastric bypass Z98.84 Insomnia G47.00 Neuropathic pain of surekha glover M79.2 Seizure disorder (HCC) G40.909 Spells [id number] Severe obesity (HCC) E66 .01 Depression F32.9 Anxiety F41.9 Bipolar disorder (HCC) F31.9 Depressive disorde r F32.9 Status post gastric bypass for obesity Z98.84 Morbid obesity (HCC) E66 .01 Mixed anxiety and depressive disorder F41.8 Vitamin D deficiency E55.9 Bipol ar disorder with severe depression (HCC) F31.4 Encephalopathy acute G93.40 Adve rse drug reaction, initial encounter T50.905A Sei-wfwo-xjhwmbb adverse reaction to me dication T88.7XXA49 year old male with pmh as stated above and now with AMS and genera lizedweakness - most likely secondary to lithium toxicity - ? Seizure.Plan: Mri Brain Ammonia Monitor lithium level daily EEG - 24 hrs Seizure precautionsPaulson Gerald Flores 2019 3:19 [id number] Name Value Range Interpretation Code Description Data Melani rce(s) Supporting Document(s ) ID Date Data Source [id number] 12/05/2019 03:37:45 PM EDT [facility] sbar-q given to Ev berger to floor Name Value Range Interpretation Code Description Data Melani rce(s) Supporting Document(s ) ID Date Data Source [id number] 12/05/2019 03:29:57 PM EDT [facility] sbar-q given to Sheri UGALDE on floor Name Value Range Interpretation Code Description Data Melani rce(s) Supporting Document(s ) ID Date Data Source [id number] 12/05/2019 03:28:02 PM EDT [facility] History & PhysicalBrian Anam Bray is a [age] y.o. male who is being readmitted via the ED wherepresents vis EMS with extreme le thargy, weakness, and questionable fallinghistory. Patient known to have se aly Bipolar 1 depression who has failedmultiple antidepressant regimens, and is waiting to start ECT treatments. Recenthospitalization for generalized we akness history of recurrent falls, withnegative findings for head injury, c linical improvement with hydration. Questionof adverse reaction to his treat ment regimen discounted by psych consultants.Patient thus maintained on h igh dose amytriptylene 200 mg nightly, [place], andVraylar 6 mg. :[place] level on prior admission therapeutic. Patient's wifecontactedthis examiner earlier this week with history of patient becomingagitated, leaving house in under clothes, with apparent uncontrolled movements ofhis extremities with her concern as to adverse reaction to the Vraylarmedication which was stopped. Risperdal 2 mg presc ribed yesterday, the patientlast evening becoming less agitated, but non cooperat sarah. Patient slipped frombed during evening and claims difficulty in arousing h im this an, promptingEMS callPast Medical History:Diagnosis Date Other unknown an d unspecified cause of morbidity or mortality cardiac cath at [facility] approx 6-8 months ag o Other unknown and unspecified cause of morbidity or mortality concussions Othe r unknown and unspecified cause of morbidity or mortality "periodic disorientation" Other unknown and unspecified cause of morbidity or mortality anxiety Psychiat rian disorder anxiety, depressionPast Surgical History:Procedure Laterality Date ABDOM EN SURGERY PROC UNLISTED gastric bypass 2009 HX GASTRIC BYPASS roue-en-y HX ORTHOPAE DIC 1985 aarthroscopic knee surgery HX ORTHOPAEDIC 1990 broken footFamily Hist oryProblem Relation Age of Onset Diabetes Mother Heart Disease MotherSocial Histo rySocioeconomic History Marital status: Spouse name: Not on file Numbe r of children: Not on file Years of education: Not on file Highest educatio n level: Not on fileSocial Needs Financial resource strain: Not very hard Food ins ecurity Worry: Never true Inability: Never true Transportation needs Medical: No Non-medical: NoTobacco Use Smoking status: Never Smoker Smokeless tobacco: Never U sedSubstance and Sexual Activity Alcohol use: No Frequency: Never Drinks per se ssion: 1 or 2 Binge frequency: Never Drug use: No Sexual activity: Not Currently Partners: FemaleLifestyle Physical activity Days per week: 0 days Minutes per sess ion: 0 min Stress: Very muchRelationships Social connections Talks on phone: Once a week Gets together: Once a week Attends shinto service: More than 4 times per year Active member of club or organization: No Attends meetings of clubs or organiz ations: Never Relationship status: MarriedOther Topics Concern Se rvice No Blood Transfusions No Caffeine Concern No Occupational Exposure No Ho bby Hazards No Sleep Concern Yes Stress Concern Yes Weight Concern Yes Special Diet No Back Care No Exercise No Bike Helmet No Seat Belt Yes Self-Exams NoP rior to Admission medicationsMedication Sig Start Date End Date Taking? Authorizing ProviderrisperiDONE (RisperDAL) 2 mg tablet Take 1 Tab by mouth daily. 12/04/19 Ritika Canas MDamitriptyline (ELAVIL) 100 mg tablet 200 mg. 11/12/19 Provider, Histo ricalVraylar 3 mg capsule Take 6 mg by mouth nightly. Prescription is 6 mg capsuleInd ications: bipolar depression 09/03/19 Provider, Historicallithium carbonate 15 0 mg capsule Take 300 mg by mouth two (2) times daily (withmeals). Other, Phys, MDclonazePAM (KLONOPIN) 2 mg tablet Take 1 mg by mouth two (2) times daily asneeded . Other, Phys, MDNo Known AllergiesReview of Systems : Unable to obtain patient le thargic, does identify examinerby namePhysical Exam:Physical Exam:General: ResponsiveHead: Normocephalic, without obvious abnormality, atraumatic. Mucosa moist.Neck without bruits, thyroid is midline.Eyes: Conjunctivae/corneas blanquita r. Pupils equal, round, reactive to light.Extraocular movements intact.Lungs : Resonant and clear to auscultation bilaterally.Chest wall: No tenderness o r deformity.Heart: Regular rate and rhythm, S1, S2 normal, no murmur, click, rub, or gallop.Abdomen: Soft, non-tender,marked obesity. Bowel sounds normal. No masses. Noorganomegaly.Extremities: Extremities normal, atraumatic, no clubbing, cyanosi s or edema.Calves are non-tender to palpation.Pulses: 2+ and symmetric all e xtremities.Skin: Skin color, texture, turgor normal. No rashes or lesions.Lymph nodes : Cervical, supraclavicular, and axillary nodes normal.Neurologic: CNII-XII intact . Normal strength, sensation, and reflexesthroughout.Labs Reviewed:Xr Pelv Ap OnlyResult Date: 12/05/2019PELVIS one view. History: Trauma The study is subop timal due to the patient'sbody habitus. There is no evidence of fracture, dislocation, subluxation, boneerosion or arthritis.IMPRESSION: Grossly normal anastacio dy.Ct Head Wo ContResult Date: 12/05/2019CT HEAD W/O CONTRAST PRIOR: Multiple: Most recent October 29, 2019: "No acuteintracranial pathology seen." HISTORY: Limited t o that provided by the emergencydepartment at the time of this examination; BIBA for fall in the middle of thenight while going to bathroom C/p left hip pain? TECHNICAL F ACTORS: Spiralimages from the base of the skull to the vertex were obtained withou tintravenous contrast. From the data set coronal and sagittal reconstructionimage s were created on an independent workstation. Utilizing manufactureralgorithms the ex amination was performed to optimize image quality whileutilizing the lowest possib le ionizing radiation dose. One or more of thefollowing doses reduction techniques was used: Decreasing the mA and or kV,automatic exposure control and iterat sarah reconstruction algorithm. FINDINGS: B/Lmaxillary sinus polyposis is identifi ed. The remainder of the visualizedsinuses, orbits and osseous calvarium are unremar kable. The hinojosa and whitematter attenuation of the cerebellum and cerebral hemispher es is unremarkableand no intra / extra-axial hematoma, fluid / mass / mass effect nor midlineshift is seen upon the sulci or ventricular system.IMPRESSION: 1. B/L ma xillary sinus polyposis. 2. Otherwise unremarkablenon-contrast enhanced CT of the brain.Xr Chest PortResult Date: 12/05/2019CHEST 1 view (s) HISTORY: Chest pain. COMPARISON: 10/29/2019. The patient isrotated towards the right and there is a poor inspiratory effort. There is apossible left basal infiltrate. The rem ainder of the lungs, pleura, mediastinumand visualized bony thorax appear to be norm al. The left hilum is normal. Theright hilum is obscured. There may be borderline or mild cardiomegaly.IMPRESSSION: Poor inspiratory effort. Possible left basal infiltrate.Recent Results (from the past 24 hour(s))EKG, 12 LEAD, INITIAL Collection Time: 12/05/19 11:41 AMResult Value Ref Range Ventricular Rate 102 BPM Atrial Ra te 102 BPM P-R Interval 174 ms QRS Duration 104 ms Q-T Interval 395 ms QTC Calculati on (Bezet) 515 ms Calculated P Parkman 40 degrees Calculated R Parkman 41 degrees Elena culated T Parkman 147 degrees Diagnosis Sinus tachycardiaProbable left atrial enlargem entAbnormal R-wave progression, early transitionNonspecific T abnormalities, l ateral leadsProlonged QT intervalMETABOLIC PANEL, COMPREHENSIVE Collection Time: 12:38 PMResult Value Ref Range Sodium 134 (L) 136 - 145 mmol/L Potassium 3.5 3 .5 - 5.1 mmol/L Chloride 104 98 - 107 mmol/L CO2 26 21 - 32 mmol/L Anion gap 7 (L) 10 - 20 mmol/L Glucose 127 (H) 74 - 106 mg/dL BUN 21 (H) 7 - 18 mg/dL Creatinine 0.94 0.70 - 1.30 mg/dL GFR est AA >60 >60 ml/min/1.73m2 GFR est non-AA >60 >60 ml/ min/1.73m2 Calcium 8.4 (L) 8.5 - 10.1 mg/dL Bilirubin, total 0.9 0.2 - 1.0 mg/dL ALT (SGPT) 34 13 - 61 U/L AST (SGOT) 47 (H) 15 - 37 U/L Alk. phosphatase 171 (H) 45 - 117 U/L Protein, total 7.5 6.4 - 8.2 g/dL Albumin 3.8 3.5 - 4.7 g/dL Globulin 3.7 1.7 - 4.7 g/dL A-G Ratio 1.0 0.7 - 2.8CBC WITH AUTOMATED DIFF Collection Time: 06/13 12:38 PMResult Value Ref Range WBC 12.4 (H) 4.8 - 10.6 K/uL RBC 5.03 4.70 - 6.00 M/uL HGB 15.4 14.0 - 18.0 g/dL HCT 45.8 42.0 - 52.0 % MCV 91.1 81.0 - 94.0 FL MCH 30. 6 27.0 - 35.0 PG MCHC 33.6 30.7 - 37.3 g/dL RDW 12.9 11.5 - 14.0 % PLATELET 164 130 - 400 K/uL MPV 9.5 9.2 - 11.8 FL NRBC 0.0 0 PER 100 WBC ABSOLUTE NRBC 0.00 0.0 - 0.0 1 K/uL NEUTROPHILS 80 (H) 48.0 - 72.0 % LYMPHOCYTES 8 (L) 18.0 - 40.0 % MONOCYTE S 10 2.0 - 12.0 % EOSINOPHILS 1 0.0 - 7.0 % BASOPHILS 0 0.0 - 3.0 % IMMATURE GRANULO CYTES 0 0 - 0.5 % ABS. NEUTROPHILS 10.0 (H) 2.3 - 7.6 K/UL ABS. LYMPHOCYTES 1.0 0.9 - 4.2 K/UL ABS. MONOCYTES 1.2 0.1 - 1.7 K/UL ABS. EOSINOPHILS 0.1 0.0 - 1.0 K/UL ABS. BASOPHILS 0.0 0.0 - 0.4 K/UL ABS. IMM. GRANS. 0.1 0.0 - 0.17 K/UL DF AUTOMATEDT ROPONIN I Collection Time: 12/05/19 12:38 PMResult Value Ref Range Troponin-I, Qt. <0.02 0.00 - 0.05 NG/MLMAGNESIUM Collection Time: 12/05/19 12:38 PMResult Value Ref Range Magnesium 2.9 (H) 1.6 - 2.6 mg/dLPROTHROMBIN TIME + INR Collection T lydia: 12/05/19 12:38 PMResult Value Ref Range Prothrombin time 10.6 9.4 - 11.1 sec INR 1.0 0.8 - 1.2LITHIUM Collection Time: 12/05/19 12:38 PMResult Value Ref Range [place] level 1.53 (HH) 0.6 - 1.2 MMOL/LLACTIC ACID Collection Time: 12/04 12:40 PMResult Value Ref Range Lactic acid 1.1 0.4 - 2.0 MMOL/All lab results for the last 24 hours reviewed. Serun [place] level toxicAssessment/PlanPrinci pal Problem: Adverse drug reaction, initial encounter (12/05/2019) LithiumActive Prob lems: Encephalopathy acute (12/05/2019) [id number] adverse reaction to med ication (12/05/2019)Neuro, and psych evaluation, hydrationRitika Canas MD Name Value Range Interpretation Code Description Data Melani rce(s) Supporting Document(s ) ID Date Data Source [id number] 12/06/2019 12:36:10 PM EDT [facility] Name Value Range Interpretation Description Data Sup porting Code Source(s) Document(s ) Service comment [facility] Bacteria [facility] identified in [facility] Unspecified Hospital specimen by Culture ID Date Data Source [id number] 12/05/2019 04:18:26 PM EDT [facility] Name Value Range Interpretation Description Data Sup porting Code Source(s) Document(s ) Color of Urine YEL Abnormal (applies [facility] - to non-numeric Good results) [facility] Appearance of CLEAR Abnormal (applies [facility] - Urine to non-numeric Good results) [facility] Specific gravity 1.033 1.003-1. Above high normal [facility] - of Urine by 030 Good Refractometry [facility] pH of Urine by 5.5 4.6-8.0 [facility] - Test strip Good [facility] Protein 30 mg/dL NEG Abnormal (applies [facility] - [Mass/volume] in to non-numeric Good Urine by Test results) [facility] Glucose NEG [facility] - [Mass/volume] in Good Urine by [facility] Automated test Hospital strip Ketones 15 mg/dL NEG Abnormal (applies [facility] - [Presence] in to non-numeric Good Urine by results) [facility] Automated test Hospital strip Bilirubin.total NEG Abnormal (applies [facility] - [Presence] in to non-numeric Good Urine results) [facility] Hemoglobin NEG [facility] - [Presence] in Good Urine by Test [facility] Urobilinogen 1.0 0.2-1.0 [facility] - [Presence] in EU/dL Good Urine by [facility] Automated test Hospital strip Nitrite NEG [facility] - [Presence] in Good Urine by [facility] Automated test Hospital strip Leukocyte NEG [facility] - esterase Good [Presence] in [facility] Urine by Hospital Automated test strip Leukocytes 0-5 [facility] - [Presence] in Good Urine sediment [facility] by Light Hospital microscopy Erythrocytes 0-2 [facility] - [#/area] in Good Urine sediment [facility] by [facility] Hospital high power field Epithelial cells 0-10 [facility] - [#/area] in Good Urine sediment [facility] by Microscopy [facility] high power field Bacteria NONE Abnormal (applies [facility] - [Presence] in to non-numeric Good Urine sediment results) [facility] by Light [facility] microscopy ID Date Data Source [id number] 12/05/2019 03:26:35 PM EDT [facility] Name Value Range Interpretation Description Data Sup porting Code Source(s) Document(s ) Bilirubin NEG [facility] - Good [Presence] in [facility] Urine by Hospital Confirmatory method ID Date Data Source [id number] 12/05/2019 02:22:27 PM EDT [facility] I spoke to Dr. Canas regarding Observation Status. Dr. Canas said patient will bemade In Patient Status today. Name Value Range Interpretation Code Description Data Melani rce(s) Supporting Document(s ) ID Date Data Source [id number] 12/05/2019 02:03:27 PM EDT [facility] SW/Psych Screener attempted to meet with Pt for MH evaluation. Pt was foundlying on stretcher with his eyes open, staring at the wall. Card Setter knows this Ptfrom previous admission to the medical floor. When ask ed if Pt rememberedwriter, Pt appeared confused, but said he did. Pt stated he fell today, doesn'tremember how he was brought to the hospital. Pt appeared to be searching for hiswords and was having difficulty speaking. Pt unclear of where he is, stating[place]" when asked where he was and "[place]" when asked what month it was. Whenasked if Pt was exhibiting any feelings of S/I, H/I or A/V Hallucinatio ns, Ptresponded with, "No," and confirmed he has been compliant with his psychiatricm edications. Card Setter conferred with ER Attending, Dr. Manzo, who states that Ptwi ll most likely be medically admitted at this time.Krystina Centeno, HECTOR, CASAC-2 Name Value Range Interpretation Code Description Data Melani rce(s) Supporting Document(s ) ID Date Data Source [id number] 12/05/2019 12:53:37 PM EDT [facility] CT HEAD W/O CONTRASTPRIOR: Multiple: Mos t recent October 29, 2019: "No acute intracranial pathologyseen."HISTORY: Limited to that provided by the emergency department at the time ofthis examination; BIBA for fall in the middle of the night while going tobathroom C/p left hip pain?TECHNICAL FACTORS: Spiral images from the base of the skull to the vertex wereobtained without intravenous contrast. From the data set coronal and sagittalreconstruction image s were created on an independent workstation. Utilizingmanufacturer algorithms the ex amination was performed to optimize image qualitywhile utilizing the lowest possib le ionizing radiation dose. One or more of thefollowing doses reduction techniques was used: Decreasing the mA and or kV,automatic exposure control and iterat sarah reconstruction algorithm.FINDINGS:B/L maxillary sinus polyposis is identified. The remainder of the visualizedsinuses, orbits and osseous calvarium are unremar kable.The hinojosa and white matter attenuation of the cerebellum and cerebral hemispher esis unremarkable and no intra / extra-axial hematoma, fluid / mass / mass effectnor midline shift is seen upon the sulci or ventricular system. IMPRESSION: 1. B/L maxillary sinus polyposis.2. Otherwise unremarkable non-contrast enhanced CT of the brain. Signing date/time: 12/05/2019 12:53 PMSigned by: TRENT MENCHACA Name Value Range Interpretation Code Description Data Melani rce(s) Supporting Document(s ) ID Date Data Source [id number] 12/05/2019 01:31:37 PM EDT [facility] Name Value Range Interpretation Description Data Sup porting Code Source(s) Document(s ) Lactate 1.1 0.4-2.0 [facility] - Good [Moles/volu MMOL/L [facility]] in Hospital Serum or Plasma ID Date Data Source [id number] 12/10/2019 05:19:22 AM EDT [facility] Name Value Range Interpretation Description Data Sup porting Code Source(s) Document(s ) Service comment [facility] Bacteria [facility] - Good identified in [facility] Unspecified Hospital specimen by Culture ID Date Data Source [id number] 12/05/2019 02:14:34 PM EDT [facility] - Good [facility] Name Value Range Interpretation Description Data Sup porting Code Source(s) Document(s ) [place] 1.53 0.6-1.2 Above upper panic [facility] - Good [Moles/volu MMOL/L limits [facility]] in Hospital Serum or Plasma CALLED TO AND READ BACK BYTRAM GAMBLE 1414 12/05/19 [facility] ID Date Data Source [id number] 12/05/2019 01:31:37 PM EDT [facility] - Good [facility] Name Value Range Interpretation Description Data Sup porting Code Source(s) Document(s ) Troponin 0.00-0.05 [facility] - Good I.cardiac [facility] [Mass/volume Hospital ] in Serum or Plasma (NOTE)The presence of detectable troponi n above the reference rangeindicates myocardial injury which may be due to is chemia,myocarditis, trauma, etc. Clinical correlation is necessary todetermine the significance of this finding. Sequential testing isrecommended to determine if th e typical rise and fall of cTnI isdemonstrated. Note, cardiac troponin-I has a relatively longhalf-life and may be present well after the CK MB has returne d tobaseline. cTnI results in the indeterminate/benitez zone for myocardial infarction: 0.06 to 0.59 ng/mL cTnI cutoff/range of values consistent with m yocardial infarction: 0.60 to 1.50 ng/mL ID Date Data Source [id number] 12/05/2019 01:31:37 PM EDT [facility] - Good [facility] Value Range Interpretation Description Data Sup porting Code Source(s) Document(s ) Sodium 134 136-145 Below low normal [facility] - Good [Moles/volume] mmol/L [facility] in Serum or Hospital Plasma Potassium 3.5 3.5-5.1 [facility] - Good [Moles/volume] mmol/L [facility] in Serum or Hospital Plasma Chloride 104 98-107 [facility] - Good [Moles/volume] mmol/L [facility] in Serum or Hospital Plasma Carbon 26 21-32 [facility] - Good dioxide, total mmol/L [facility] [Moles/volume] Hospital in Serum or Plasma Anion gap in 7 mmol/L 10-20 Below low normal [facility] - Go od Serum or [facility] Plasma Hospital Glucose 127 74-106 Above high normal [facility] - Good [Mass/volume] mg/dL [facility] in Serum or Hospital Plasma Urea nitrogen 21 mg/dL 7-18 Above high normal [facility] - Good [Mass/volume] [facility] in Serum or Hospital Plasma Creatinine 0.94 0.70-1.3 [facility] - Good [Mass/volume] mg/dL 0 [facility] in Serum or Hospital Plasma Glomerular >60 [facility] - Good filtration [facility] rate/1.73 sq M Hospital predicted among blacks [Volume Rate/Area] in Serum or Plasma by Creatinine-bas ed formula (MDRD) Glomerular >60 [facility] - Good filtration [facility] rate/1.73 sq M Hospital predicted among non-blacks [Volume Rate/Area] in Serum or Plasma by Creatinine-bas ed formula (MDRD) (NOTE)Estimated GFR is calculated using the Modification of Diet in RenalDisease (MDRD) Study equation, reported for both Americans(GFRAA) and non- Americans (GFRNA), and normalized to 1.7 3x6zwzt surface area. The physician must decide which value applies tothe patient . The MDRD study equation should only be used inindividuals age 18 or older. It has no t been validated for thefollowing: women, patients with serious comorbid co nditions,or on certain medications, or persons with extremes of body size,muscl e mass, or nutritional status. Calcium [Mass/volume] in 8.4 mg/dL 8.5-10.1 Below low normal [facility] - Good Serum or Plasma [facility] ital Bilirubin.total 0.9 mg/dL 0.2-1.0 [facility] - Good [Mass/volume] in Serum or [facility] Plasma Alanine aminotransferase 34 U/L 13-61 [facility] - Good [Enzymatic activity/volume] [facility] in Serum or Plasma Aspartate aminotransferase 47 U/L 15-37 Above high [facility] - Good [Enzymatic activity/volume] normal [facility] in Serum or Plasma by With P-5'-P Alkaline phosphatase 171 U/L 45-117 Above high [facility] - Good [Enzymatic activity/volume] normal [facility] in Serum or Plasma Protein [Mass/volume] in 7.5 g/dL 6.4-8.2 [facility] - Good Serum or Plasma [facility] ital Albumin [Mass/volume] in 3.8 g/dL 3.5-4.7 [facility] - Good Serum or Plasma by [facility] ospital Bromocresol purple (BCP) dye binding method Globulin [Mass/volume] in 3.7 g/dL 1.7-4.7 [facility] - Good Serum by [facility] Albumin/Globulin [Mass 1.0 0.7-2.8 [facility] - Good Ratio] in Serum or Plasma [facility] ID Date Data Source [id number] 12/05/2019 01:31:37 PM [facility] Name Value Range Interpretation Description Data Sup porting Code Source(s) Document(s ) Magnesium 2.9 mg/dL 1.6-2.6 Above high normal [facility] - Good [Mass/volume] [facility] in Serum or Hospital Plasma ID Date Data Source [id number] 12/05/2019 01:20:04 PM EDT [facility] Name Value Range Interpretation Description Data Sup porting Code Source(s) Document(s ) Prothrombin 10.6 sec 9.4-11.1 [facility] time (PT) [facility] INR in 1.0 0.8-1.2 [facility] - Good Platelet poor [facility] plasma by [facility] Coagulation assay ID Date Data Source [id number] 12/05/2019 01:07:21 PM EDT [facility] Name Value Range Interpretation Description Data Sup porting Code Source(s) Document(s ) Leukocytes 12.4 4.8-10.6 Above high normal [facility] - [#/volume] in K/uL Good Blood by [facility] count [facility] Erythrocytes 5.03 4.70-6.0 [facility] - [#/volume] in M/uL 0 Good Blood by [facility] count [facility] Hemoglobin 15.4 14.0-18. [facility] - [Mass/volume] in g/dL 0 Good Blood [facility] Hematocrit 45.8 % 42.0-52. [facility] - [Volume 0 Good Fraction] of [facility] Blood by Hospital Automated count Erythrocyte mean 91.1 FL 81.0-94. [facility] - corpuscular 0 Good volume [Entitic Judaism volume] by Hospital Automated count Erythrocyte mean 30.6 PG 27.0-35. [facility] - corpuscular 0 Good hemoglobin [facility] [Entitic mass] Hospital by Automated count Erythrocyte mean 33.6 30.7-37. [facility] - corpuscular g/dL 3 Good hemoglobin [facility] concentration Hospital [Mass/volume] by Automated count Erythrocyte 12.9 % 11.5-14. [facility] - distribution 0 Good width [Ratio] by [facility] Automated count Hospital Platelets 164 K/uL 130-400 [facility] - [#/volume] in [facility] Blood by [facility] Automated count Hospital Platelet mean 9.5 FL 9.2-11.8 [facility] - volume [Entitic Good volume] in Blood [facility] by Automated Hospital count Nucleated 0.0 PER 0 [facility] - erythrocytes/100 100 WBC Good leukocytes Judaism [Ratio] in Blood [facility] Nucleated 0.00 0.0-0.01 [facility] - erythrocytes K/uL Good [#/volume] in [facility] Segmented 80 % 48.0-72. Above high normal [facility] - neutrophils/100 0 Good leukocytes in [facility] Lymphocytes/100 8 % 18.0-40. Below low normal [facility] - leukocytes in 0 [facility] Blood [facility] Monocytes/100 10 % 2.0-12.0 [facility] - leukocytes in [facility] Blood [facility] Eosinophils/100 1 % 0.0-7.0 [facility] - leukocytes in [facility] Blood [facility] Basophils/100 0 % 0.0-3.0 [facility] - leukocytes in [facility] Immature 0 % 0-0.5 [facility] - granulocytes/100 Good leukocytes in [facility] Blood by Hospital Automated count Segmented 10.0 2.3-7.6 Above high normal [facility] - neutrophils K/UL Good [#/volume] in [facility] Lymphocytes 1.0 K/UL 0.9-4.2 [facility] - [#/volume] in [facility] Blood [facility] Monocytes 1.2 K/UL 0.1-1.7 [facility] - [#/volume] in [facility] Eosinophils 0.1 K/UL 0.0-1.0 [facility] - [#/volume] in [facility] Basophils 0.0 K/UL 0.0-0.4 [facility] - [#/volume] in [facility] Immature 0.1 K/UL 0.0-0.17 [facility] - granulocytes Good [#/volume] in [facility] Blood by Hospital Automated count Differential [facility] - cell count Good method [facility] ID Date Data Source [id number] 12/10/2019 05:19:23 AM EDT [facility] Name Value Range Interpretation Description Data Sup porting Code Source(s) Document(s ) Service comment [facility] Bacteria [facility] identified in [facility] Unspecified Hospital specimen by Culture ID Date Data Source [id number] 12/05/2019 12:24:35 PM EDT [facility] PELVIS one view.History: TraumaThe study is suboptimal due to the patient's body habitus.There is no evidence of fracture , dislocation, subluxation, bone erosion orarthritis.IMPRESSION: Grossly normal s tudy. Signing date/time: 12/05/2019 12:24 PMSigned by: CURTIS VARMA Name Value Range Interpretation Code Description Data Melani rce(s) Supporting Document(s ) ID Date Data Source [id number] 12/05/2019 12:23:11 PM EDT [facility] CHEST 1 view (s)HISTORY: Chest pain.COMP ARISON: 10/29/2019.The patient is rotated towards the right and there is a poor in spiratory effort.There is a possible left basal infiltrate. The remainder of the l ungs, pleura,mediastinum and visualized bony thorax appear to be normal. The left hil um isnormal. The right hilum is obscured. There may be borderline or mildcardiomeg harvey.IMPRESSSION: Poor inspiratory effort. Possible left basal infiltrate. Signing date/time: 12/05/2019 12:23 PMSigned by: VARMA, CURTIS Name Value Range Interpretation Code Description Data Melani rce(s) Supporting Document(s ) ID Date Data Source [id number] 12/05/2019 11:34:39 AM EDT [facility] BIBA for fall in the middle of the night while going to bathroomC/p left hip pain Name Value Range Interpretation Code Description Data Melani rce(s) Supporting Document(s ) ID Date Data Source [id number] 12/05/2019 11:21:27 AM EDT [facility] Please enter the current weight for this patient in [facility]. Thank you. Name Value Range Interpretation Code Description Data Melani rce(s) Supporting Document(s ) ID Date Data Source [id number] 11/23/2019 02:02:47 PM EDT [facility] Discharge SummaryPatient: Maxwell mackey Sex: male DOA: 10/29/2019Date of : 1970 Ag e: 49 y.o. LOS: LOS: 5 daysAdmit Date: 10/29/2019Discharge Date: 11/03/2019A dmission Diagnoses:#1 Altered Mental State,#2Bipolar disorder with severedepr ession (HCC) [F31.4Discharge Diagnoses: Bipolar disorder with severe depressionP roblem List as of 11/03/2019 Date Reviewed: 07/21/2019 Codes Class Noted - Reso lved Depression ICD-10-CM: F32.9ICD-9-CM: 311 07/20/2018 - Present Neuropathic pain of shoulder ICD-10-CM: M79.2ICD-9-CM: 354.9 12/29/2013 - Present Bipolar disorder with severe depression (HCC) ICD-10-CM: F31.4ICD-9-CM: 296.53 10/29/2019 - Presen t Mixed anxiety and depressive disorder ICD-10-CM: F41.8ICD-9-CM: 300.4 09/04/19 20 - Present Vitamin D deficiency ICD-10-CM: E55.9ICD-9-CM: 268.9 09/04/2019 - Presen t Anxiety ICD-10-CM: F41.9ICD-9-CM: 300.00 07/21/2019 - Present Bipolar disorder (HC C) ICD-10-CM: F31.9ICD-9-CM: 296.80 07/21/2019 - Present Depressive disorder ICD-10-CM: F32.9ICD-9-CM: 311 07/21/2019 - Present Status post gastric bypass for o besity ICD-10-CM: Z98.84ICD-9-CM: V45.86 07/21/2019 - Present Morbid obesity (HCC) ICD-10-CM: E66.01ICD-9-CM: 278.01 07/21/2019 - Present Severe obesity (HCC) ICD-10-CM : E66.01ICD-9-CM: 278.01 07/19/2018 - Present Spells ICD-10-CM: [id number]: IMO00 01 04/08/2016 - Present Seizure disorder (HCC) ICD-10-CM: G40.909ICD-9-CM: 345.90 04/30/2014 - Present Insomnia ICD-10-CM: G47.00ICD-9-CM: 780.52 11/04/2013 - Pres ent H/O gastric bypass ICD-10-CM: Z98.84ICD-9-CM: V45.86 06/12/2013 - Pre sent RESOLVED: Acute coronary syndrome (HCC) ICD-10-CM: I24.9ICD-9-CM: 411.1 03/13/20 15 - 03/14/2015Discharge Condition: FairHospital Course: This 49-year-old ma rried male with a long history of bipolardepression was admitted via the e mergency department where he presented with ahistory of weakness, slurred speech and memory deficit. The ER physician posedthe question of altered mental state. The p ossibility of inadvertent drugoverdose cannot be excluded as patient had a history of taking multiplemedications including lithium, amitriptyline,Vraylar as prescribed by Patsy Ambrocio his psychiatrist. The patient was reported to out of work since to his symptoms of depression. Studies in the ED and subsequently provednegativ e for infectious basis for his presenting symptoms. Psyciatricconsultation was obt ained with decision to current psych outpatient medsunchanged. Patient was tr eated with parenteral hydration with benefit x3jxcrxeprhesevbmoy responses. Of note i s fact that patient was scheduled to begin ECTtreatment for depression when Covid 1 9 pandemic curtained this plan.Consults: PsychiatrySignificant Diagnostic Studies : labs: microbiology: , radiology: and cardiacgraphics:Discharge Medications: @DISCHARGEMEDLIST@Activity: Activity as toleratedDiet: Resume previous dietWound Care: None neededFollow-up: This examiner to follow in officeRitika Canas MD Name Value Range Interpretation Code Description Data Melani rce(s) Supporting Document(s ) ID Date Data Source [id number] 11/03/2019 09:41:35 PM EDT [facility] Verbal shift change report given to , RN (oncoming nurse) by Scott Beverly RN (offgoing nurse). Report included the fo llowing information SBAR, Kardex,Intake/Output, MAR and Recent Res ults. Name Value Range Interpretation Code Description Data [facility] rce(s) Supporting Document(s ) ID Date Data Source [id number] 11/03/2019 03:34:07 PM EDT [facility] Per psych note, CM to confirm patient ap pt with psychiatristCall to Dr Mateo Méndez office # [phone], office [facility] ent aware of # to call to make his own appt, psychiatry info placed on [facility] states his will be coming this evening to drive him homeCare Management InterventionsPCP Verified by CM: YesPalliative Care Criteria Met (RRAT>21 & CHF Dx)?: NoMode of Transport at Discharge: Other (see comment)( yanni maciel between approx5-6)Transition of Care Consult (CM Consult): Discharge Planning Physical Therapy Consult: NoOccupational Therapy Consult: NoSpeech Therapy Consul t: NoCurrent Support Network: Lives with Spouse, Own Home( [place] [phone])Confirm Follow Up Transport: FamilyThe Patient and/or Patient Represe ntative was Provided with a Choice of Providerand Agrees with the Discharge Pl an?: YesFreedom of Choice List was Provided with Basic Dialogue that Supports thePat ient's Individualized Plan of Care/Goals, Treatment Preferences and Sharesthe Qual ity Data Associated with the Providers?: YesVeteran Resource Information Provided ?: RefusedDischarge LocationDischarge Placement: Home Name Value Range Interpretation Code Description Data Melani rce(s) Supporting Document(s ) ID Date Data Source [id number] 11/03/2019 02:45:48 PM EDT [facility] PHYSICAL THERAPY TREATMENTPatient: Maxwell Bray (49 y.o. male)Date: 11/03/2019Diagnosis: Bipolar disorder wit h severe depression (HCC) [F31.4]Bipolar disorder with severe depression (HCC) [F 31.4]<principal problem not specified>Precautions: Fall, SeizureASSE SSMENT:Pt presented with some deconditioning, a slight balance deficit, and decreasedf unctional mobility. Pt appeared alert, followed commands, performed bedmobility independently, transfers with Modified independence, amb independently,and stai rs with modified independence. Pt displayed increased sway during ambhowever no LOB noted. Pt was instructed on activity pacing and safety awareness.Pt was returned to bed, instructed on exercises, and was left in NAD with CB andneeds in reach.Progressio n toward goals:[x] Improving appropriately and progressing toward goals[] Improv ing slowly and progressing toward goals[] Not making progress toward goals and gerson n of care will be adjustedPLAN:Patient continues to benefit from skilled interv ention to address the aboveimpairments. Continue treatment per established plan of care.Discharge Recommendations: OutpatientFurther Equipment Recommendati ons for Discharge: noneSUBJECTIVE:Patient participated well with therapyOBJECTIVE DATA SUMMARY:Critical Behavior:Neurologic State: AlertOrientation Level: Appropria te for ageCognition: Appropriate for age attention/concentrationSafety/Judgement: Awareness of environmentFunctional Mobility Training:Bed Mobility:Rolling: Independe ntSupine to Sit: IndependentSit to Supine: IndependentScooting: IndependentTransfer s:Sit to Stand: Modified independentStand to Sit: Modified independentBalance:Sitting : IntactStanding: ImpairedStanding - Static: GoodStanding - Dynamic : Fair;GoodAmbula tion/Gait Training:Distance (ft): 150 Feet (ft)Assistive Device: (none)Ambulation - Level of Assistance: IndependentGait Abnormalities: Decreased step clearanceB ase of Support: WidenedSpeed/Alisa: SlowInterventions: Safety awareness sukhi mary;Visual/Demos;Verbal cuesStairs:Number of Stairs Trained: 5Stairs - Level of Praful tance: Modified independent Rail Use: RightNeuro Re-Education:Sitting and louis ding balance activityTherapeutic Exercises:UE and LE AROMTransfer training, bed mobili ty, stair trainingSafety training, postural training, activity pacingEducationPain:P ain Scale 1: Numeric (0 - 10)Pain Intensity 1: 0Activity Tolerance:GoodPlease refer to the flowsheet for vital signs taken during this treatment.After treatment:[] Pat ient left in no apparent distress sitting up in chair[x] Patient left in no appare nt distress in bed[x] Call moffett left within reach[x] Nursing notified[] Caregiver present[] Bed alarm activatedCOMMUNICATION/COLLABORATION:The patient's plan of care was discussed with: Registered Nurse and patientYiafshin palma PT, DPT Time Calculation: 18 mins Name Value Range Interpretation Code Description Data Melani rce(s) Supporting Document(s ) ID Date Data Source [id number] 11/03/2019 01:09:08 PM EDT [facility] General Daily Progress NoteAdmit Date: Hospital day: .tdSubjective:Patient now qualifies for discharge home.Still n o bowel activity.Current Facility-Administered MedicationsMedicat ion Dose Route Frequency hydrocortisone (HYTONE) 2.5 % ointment Topical BID c ariprazine (VRAYLAR) capsule 6 mg (Patient Supplied) 6 mg Oral QHS docusate sodiu m (COLACE) capsule 200 mg 200 mg Oral DAILY bisacodyL (DULCOLAX) tablet 5 mg 5 mg O ral DAILY PRN amitriptyline (ELAVIL) tablet 150 mg 150 mg Oral QHS clonazePAM (Klo noPIN) tablet 1 mg 1 mg Oral BID lithium carbonate tablet 300 mg 300 mg Oral BID sodium chloride (NS) flush 5-40 mL 5- 40 mL IntraVENous Q8H sodium chloride (NS) fl ush 5-40 mL 5-40 mL IntraVENous PRN acetaminophen (TYLENOL) tablet 650 mg 6 50 mg Oral Q4H PRN enoxaparin (LOVENOX) injection 40 mg 40 mg SubCUTAneous Q24H Objective:Patient Vitals for the past 8 hrs: BP Temp Pulse Resp [id number]/03/19 0752 115 /76 97.6 F (36.4 C) 68 19 97 %11/02 0701 - 11/02 1900In: -Out: 175 [Urine:175]10/31 1901 - 11/02 0700In: 3138.3 [I.V.:3138.3]Out: 2935 [Urine:2935] Phys ical Exam: General: WD, WN. Alert, cooperative, no acute distress. HEENT: NC, Atraumatic. PERRLA, anicteric sclerae. Lungs: CTA Bilater ally. No Wheezing/Rhonchi/Rales. Heart: Regular rhythm, No murmur, No Rubs, No Gallops. Abdomen: Soft, Non distended, Non tender. +Bowel sounds. Extremities: No c/c/e Psych: Not anxious or agitated. Ne urologic: No acute neurological deficit.Data Review No results found for this or any previous visit (from the past 24hour(s)). Ct Head Wo ContResult Date: 10/29/2019CT HEAD WO CONT Clinical data: ams Priors: 03/13/2015. Technique: Multiple axialimag es were obtained from the skullbase to the vertex without administration ofintraven ous contrast. Sagittal and coronal reconstruction was performed.Utilizing m anufacturer algorithm the examination was performed to optimizeimaging quality by utilizing the lowest possible radiation dose. Findings: Thereis no evidence of intracr anial hemorrhage, masses, acute cortical infarction, ormidline shift. There are n o extra-axial fluid collections. There is noevidenceof hydrocephalus. The bony elena varium shows no evidence of fracture ordestructive bony process.IMPRESSION: N o acute intracranial pathology seen.Xr Chest PortResult Date: 10/29/2019XR CHEST PORT C LINICAL INDICATION PROVIDED:. "ams." TECHNIQUE.: 1 views, chest.COMPARISON:. 08/16/2019. FINDINGS:. The patient has taken a shallow inspirationon the present exam. Increased interstitial markings in both lungs may reflectvascular crowding in the sett ing of low lung volumes. There is no lobarconsolidation or large effusion. Th ere is no pneumothorax.IMPRESSION:. No acute pulmonary process. Prominent interstitia l markings arefelt to reflect vascular cro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 R epeat PA andlateral views the chest are advised if there is clinical concern for pneumoniaor congestive failure.Assessment:Active Problems: Bip olar disorder with severe depression (HCC) (10/29/2019)Plan:Day of discharge Name Value Range Interpretation Code Description Data [facility] rce(s) Supporting Document(s ) ID Date Data Source [id number] 11/03/2019 10:52:30 AM EDT [facility] S/O patient has seen for follow up via V ideo . He is doing much better. Hedenies any auditory or visual hallucination any mor eHe has no suicidal or homicidal thoughtsHe reports that he sees Dr. marie every ot her weeksPt wants to follow up with Dr. Marie after dischargePlan continue on a ll current psychotropic medications Requesting correctional counselor/case manager to confirm his a ppointment with Dr. mariebefore he discharged Please re consult if n eeded Name Value Range Interpretation Code Description [facility] ID Date Data Source [id number] 11/03/2019 07:12:34 AM EDT [facility] Bedside and Verbal shift change report g iven to Meño Rose, RN (oncomingnurse) by June Ochoa, TRAM (offgoing nurse). Repor t included the followinginformation SBAR, Kardex, Intake/Output, MAR, Recent Resul ts and Med Rec Status. Name Value Range Interpretation Code Description Data [facility](s) Supporting Document(s ) ID Date Data Source [id number] 11/02/2019 11:18:25 PM EDT [facility] Problem: Falls - Risk ofGoal: *Absence o f FallsDescription: Document Carmen Fall Risk and appropriate interventions in theflow sheet.Outcome: Progressing Towards GoalNote: Fall Risk Interventions:Mobility Interve ntions: Bed/chair exit alarm, Patient to call before getting OOBMentation Intervention s: Adequate sleep, hydration, pain control, Bed/chair exitalarmMedication Interventi ons: Bed/chair exit alarm, Patient to call before gettingOOBElimination Interventio ns: Bed/chair exit alarm, Call light in reachHistory of Falls Interventions: Bed /chair exit alarm, Door open when patientunattendedProblem: Patient Educat ion: Go to Patient Education ActivityGoal: Patient/Family EducationOutcome: Progres sing Towards GoalProblem: Seizure Disorder (Adult)Goal: *STG: Remains free of seizu re activityOutcome: Progressing Towards GoalGoal: *STG: Maintains lab values wit hin therapeutic rangeOutcome: Progressing Towards GoalGoal: *STG/LTG: Complies wit h medication therapyOutcome: Progressing Towards GoalGoal: *STG: Remains free of injury during seizure activityOutcome: Progressing Towards GoalGoal: *STG: Jenni ins safe in hospitalOutcome: Progressing Towards GoalGoal: InterventionsOutcome: Progressing Towards GoalProblem: Patient Education: Go to Patient Education Activ ityGoal: Patient/Family EducationOutcome: Progressing Towards GoalProblem: Patient Education: Go to Patient Education ActivityGoal: Patient/Family EducationOu tcome: Progressing Towards GoalProblem: Pressure Injury - Risk ofGoal: *Preventi on of pressure injuryDescription: Document Harsh Scale and appropriate interventio ns in thedo[facility] hospitalsheet.Outcome: Progressing Towards GoalNote: Pressure Injury Interv entions:Sensory Interventions: Assess need for specialty bed, Keep linens dry andwr inkle-free, Minimize linen layersActivity Interventions: Pressure redistribution b ed/mattress(bed type)Mobility Interventions: HOB 30 degrees or lessNutrition Interven tions: Offer support with meals,snacks and hydrationFriction and Shear Intervention s: HOB 30 degrees or less, Minimize layersProblem: Patient Education: Go to Patient Education ActivityGoal: Patient/Family EducationOutcome: Progres sing Towards Goal Name Value Range Interpretation Code Description [facility] ) ID Date Data Source [id number] 11/02/2019 07:34:02 PM EDT [facility] Bedside shift change report given to GILLIAN KEATING (oncoming nurse) by Meño Rose(offgoing nurse). Report included the following information SBAR, Kardex andIntake/Output. Name Value Range Interpretation Code Description Data [facility] rce(s) Supporting Document(s ) ID Date Data Source [id number] 11/02/2019 05:14:50 PM EDT [facility] Telehealth Progress NotePursuant to the emergency declaration under the Laird Act and the NationalEmergencies Act, 1135 wa iver authority and the Coronavirus Preparedness andResponse Supplemental Ap propriations Act, this Virtual Visit was conducted,with patient's (and/or legal g uardian's) consent, to reduce the patient's riskof exposure to COVID-19 and provide necessary medical care.[x] I have provided the patient with basic information about tele-psychiatryand obtained their consent to participate in services using technology .I was at home while conducting this encounter.This session was conducted via [] Telephone [x] VideoconferenceDate: 11/02/2019Accodarian Blanton mber: [id number]: Maxwell Robin [employer] Joe PROGRESS NOTE:Coordinated treatment team rounds conducted with psychiatrist, patient, nursesand/or social worker aide present ; dis cussions held with correctional counselor/case manager and/or familymembers; Chart reviewed in full in cluding analytical consultant notes, ancillary staffnotes, vitals and labs in [facility] EMR reviewed in full.SUBJECTIVE: Pt seen for first time on Video with my TERRY Mendy And RN , hereports less hallucinations , as they are still there in the morning But overall better since got back on vraylar told me was scheduled for ECT at [facility] but due to elective , it got postponed with Covid-19,He intends to ge tf/u with Dr Hartman Symptoms:OBJECTIVE: calm cooperative no acute psychosis or severe depressionMental Status Examination:Cognition and Memory Intact [x] Alert Ambulatory and Oriented x3 []Judgment- Fair [x] Poor []Insight- Jaswinder r [x] Poor []Delusions- Present [] Absent [x]Halucinations- Present [x] Absent [] No Side effects [] No EPS /AIMS Noted []Pertinant Data:Patient Vitals for the past 8 hrs: Temp Pulse Resp BP [id number]/02/19 1546 98.3 F (36.8 C) 84 18 125/85 96 % No results found for this or any previous visit (from the past 24 hour(s)).Medicat ions:Current Facility-Administered MedicationsMedication Dose Route Frequen cy hydrocortisone (HYTONE) 2.5 % ointment Topical BID cariprazine (VRAYLAR) capsu le 6 mg (Patient Supplied) 6 mg Oral QHS docusate sodium (COLACE) capsule 200 mg 200 mg Oral DAILY bisacodyL (DULCOLAX) tablet 5 mg 5 mg Oral DAILY PRN amitri ptyline (ELAVIL) tablet 150 mg 150 mg Oral QHS clonazePAM (KlonoPIN) tablet 1 mg 1 mg Oral BID lithium carbonate tablet 300 mg 300 mg Oral BID sodium chloride (NS ) flush 5-40 mL 5-40 mL IntraVENous Q8H sodium chloride (NS) flush 5-40 mL 5-40 mL IntraVENous PRN acetaminophen (TYLENOL) tablet 650 mg 650 mg Oral Q4H PRN enox aparin (LOVENOX) injection 40 mg 40 mg SubCUTAneous [id number] Medications:C urrent Facility-Administered MedicationsMedication Dose Route Frequen cy hydrocortisone (HYTONE) 2.5 % ointment Topical BID cariprazine (VRAYLAR) capsu le 6 mg (Patient Supplied) 6 mg Oral QHS docusate sodium (COLACE) capsule 200 mg 200 mg Oral DAILY amitriptyline (ELAVIL) tablet 150 mg 150 mg Oral QHS clonazeP AM (KlonoPIN) tablet 1 mg 1 mg Oral BID lithium carbonate tablet 300 mg 300 mg Oral BID sodium chloride (NS) flush 5- 40 mL 5-40 mL IntraVENous Q8H enoxaparin (RENAN ENOX) injection 40 mg 40 mg SubCUTAneous [id number]/PLAN:Continue current kalie atment as pt is stabalizingPatient Active Hospital Problem List: Bipolar disorder with severe depression (HCC) (10/29/2019) Assessment: stabilizing Plan: continue current treatment to return to baselineThe following regarding medications was addr essed during rounds;Medication changes: please see above for detailsWill continu e to adjust medications as deemed appropriate and to response forsymptom management (s ee medication orders made in EMR). Will continue to provideindividual psychother apy and millieu, recreational, occupational, group,substance abuse therapies to addre ss target symptoms and as deemed appropriatefor the individual patient. F ollowing issues were addressed, focused on;Psychoeducation provided. Treatment p aftab reviewed with patient-includingdiagnosis and medications. Worked on issues of den ial & effects of substancedependency/use.Length of psycho therapy session: Time; 15 min -Expected Discharge Date (Day)/Estimated length of stay:Patient was seen during coordinated treatment rounds and discussed withpam siegel psychiatrist who concurs with above.Iglesia Frazier MD11/02/20195:06 PM Name Value Range Interpretation Code Description Data Melani rce(s) Supporting Document(s ) ID Date Data Source [id number] 11/02/2019 03:02:33 PM EDT [facility] General Daily Progress NoteAdmit Date: Hospital day: .tdSubjective:Patient more responsive, relates jumbled speech earlier today now cleared, alsorelates hallucinatory ideation "talking to his b rother who was swimming". Onquestioning benefit of Vraylar which patient has bee n on for the last twomonths, the patient claims no benefit, hence plan of DR Shad valentin for patient tostart ECT. Patient eating well, drinking fluids, however, yet to h ave BM sinceadmission, denies abdominal pain.Current Facility-Administered Medic ationsMedication Dose Route Frequency hydrocortisone (HYTONE) 2.5 % ointment Topical BID cariprazine (VRAYLAR) capsule 6 mg (Patient Supplied) 6 mg Oral QHS do cusate sodium (COLACE) capsule 200 mg 200 mg Oral DAILY bisacodyL (DULCOLAX) tablet 5 mg 5 mg Oral DAILY PRN amitriptyline (ELAVIL) tablet 150 mg 150 mg Oral QHS clonazePAM (KlonoPIN) tablet 1 mg 1 mg Oral BID lithium carbonate tablet 300 mg 30 0 mg Oral BID sodium chloride (NS) flush 5-40 mL 5-40 mL IntraVENous Q8H sodium chloride (NS) flush 5-40 mL 5-40 mL IntraVENous PRN acetaminophen (TYLENOL) tablet 650 mg 650 mg Oral Q4H PRN enoxaparin (LOVENOX) injection 40 mg 40 mg SubCUTAneous [id number]:Patient Vitals for the past 8 hrs: BP Temp Pulse Resp S pO205/20 0748 120/85 98.2 F (36.8 C) 75 18 94 %11/01 700 - 11/01 1899In: -Out: 570 [Urine:570]10/30 1900 - 11/01 0700In: 3612.3 [P.O.:474; I.V.:3138.3]Out: 4925 [Urine:4925] Physical Exam: General: WD, obese. Alert, cooperative, no acute distress. HEENT: NC, Atraumatic. PERRLA, anicteric sclerae. Lungs: CTA Bilaterally. No Wheezing/Rhonchi/Rales. He art: Regular rhythm, No murmur, No Rubs, No Gallops. Abdomen: Soft, Non diste nded, Non tender. +Bowel sounds. Extremities: No c/c/e. Psych: Not anxious or agitated. Neurologic: No acute neurological defici t. Skin: Facial rash improvedData Review No results foun d for this or any previous visit (from the past 24hour(s)). Ct Head Wo ContResult D ate: 10/29/2019CT HEAD WO CONT Clinical data: ams Priors: 03/13/2015. Technique: Multip le axialimages were obtained from the skullbase to the vertex without administ ration ofintravenous contrast. Sagittal and coronal reconstruction was performed.Uti Luminetxing manager talent management algorithm the examination was performed to optimizeimaging quality by utilizing the lowest possible radiation dose. Findings: Thereis no evidence of i ntracranial hemorrhage, masses, acute cortical infarction, ormidline shift. Th ere are no extra-axial fluid collections. There is noevidenceof hydrocephalus. The bony calvarium shows no evidence of fracture ordestructive bony process.IMPRESSION: N o acute intracranial pathology seen.Xr Chest PortResult Date: 10/29/2019XR CHEST PORT C LINICAL INDICATION PROVIDED:. "ams." TECHNIQUE.: 1 views, chest.COMPARISON:. 08/16/2019. FINDINGS:. The patient has taken a shallow inspirationon the present exam. Increased interstitial markings in both lungs may reflectvascular crowding in the sett ing of low lung volumes. There is no lobarconsolidation or large effusion. Th ere is no pneumothorax.IMPRESSION:. No acute pulmonary process. Prominent interstitia l markings arefelt to reflect vascular cro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 R epeat PA andlateral views the chest are advised if there is clinical concern for pneumoniaor congestive failure.Assessment:Active Problems: Bip olar disorder with severe depression (HCC) (10/29/2019)Plan:Possible discharge tomorr ow, after attempt to contact Dr Méndez for earlyfollow up. Name Value Range Interpretation Code Description Data [facility] rce(s) Supporting Document(s ) ID Date Data Source [id number] 11/02/2019 07:48:14 AM EDT [facility] Verbal shift change report given to Jody wells RN (oncoming nurse) by Juliane UGALDE (offgoing nurse). Report included the following information SBAR,Kardex, Intake/Output, MAR and Recent Results Name Value Range Interpretation Code Description Data [facility] rce(s) Supporting Document(s ) ID Date Data Source [id number] 11/02/2019 05:41:52 AM EDT [facility] Patient AOX3 with periodic confusion. In bed watching TV. All med's given asordered by MD, tolerated well. Fall precaution m easures reinforced. Call bellwithin reach, bed in low position. Has urinal and comm ode at bedside. Voices nocomplaint at this time. Will continue to monitor pt. Name Value Range Interpretation Code Description [facility] ) ID Date Data Source [id number] 11/01/2019 08:46:30 PM EDT [facility] Problem: Falls - Risk ofGoal: *Absence o f FallsDescription: Document Carmen Fall Risk and appropriate interventions in theflow sheet.Outcome: Progressing Towards GoalNote: Fall Risk Interventions:Mobility Interve ntions: Bed/chair exit alarm, Patient to call before gettingOOB, PT Consult for mobili ty concernsMentation Interventions: Adequate sleep, hydration, pain control, Bed/kayleen r exitalarm, Door open when patient unattended, More frequent rounding, Reor ientpatient, Room close to nurse's stationMedication Interventions: Assess postural VS orthostatic hypotension, Bed/chairexit alarm, Evaluate medication s/consider consulting pharmacy, Patient to callbefore getting OOB, Teach patient to arise slowlyElimination Interventions: Bed/chair exit alarm, Call light in reac h, Patient tocall for help with toileting needsHistory of Falls Interventions: Bed /chair exit alarm, Evaluatemedications/consider consulting pharmacyProblem: Seizure Disorder (Adult)Goal: *STG: Remains free of seizu re activityOutcome: Progressing Towards GoalProblem: Patient Education: Go to Pa tient Education ActivityGoal: Patient/Family EducationOutcome: Progressing Towards Go alProblem: Pressure Injury - Risk ofGoal: *Prevention of pressure injuryDescriptio n: Document Harsh Scale and appropriate interventions in [facility].Outcome: P rogressing Towards GoalNote: Pressure Injury Interventions:Sensory Interventions: Dis cuss PT/OT consult with provider, Keep linens dry andwrinkle-free, Maintain/enhance ac tivity level, Minimize linen layersActivity Interventions: Pressure redistribution b ed/mattress(bed type)Mobility Interventions: HOB 30 degrees or less, Pressure redistr ibutionbed/mattress (bed type), PT/OT evaluationNutrition Interventions: Offer support with meals,snacks and hydrationFriction and Shear Intervention s: HOB 30 degrees or less, Minimize layersProblem: Patient Education: Go to Patient Education ActivityGoal: Patient/Family EducationOutcome: Progres sing Towards Goal Name Value Range Interpretation Code Description Data [facility](s) Supporting Document(s ) ID Date Data Source [id number] 11/01/2019 08:00:09 PM EDT [facility] Verbal shift change report given to Ly vitale RN (oncoming nurse) by TRAM Palacio (offgoing nurse). Report included the following information SBAR,Intake/Output, MAR and Recent Results. Name Value Range Interpretation Code Description Data [facility](s) Supporting Document(s ) ID Date Data Source [id number] 11/01/2019 03:49:42 PM EDT [facility] Adult Progress NoteDate: 11/01/2019Account Number: [id number]: Maxwell Mendieta TrimbleDiagnosis: History of mood and se izure disorder.Length of session: 15 minutesSubjective: Patient reported he i s feeling better today, denies perceptualdisturbance today. He reported he had episode of confusion and thought he was [place] train ride and that a carnival w as going on outside.Patient Active Problem List Diagnosis Date Noted Depression Priority: 1 - One Neuropathic pain of shoulder 12/29/2013 Priority: 1 - On e Bipolar disorder with severe depression ([facility]) 10/29/2019 Mixed anxiety and depr essive disorder 09/04/2019 Vitamin D deficiency 09/04/2019 Anxiety 0 Bipolar disorder ([facility]) 07/21/2019 Depressive disorder 07/21/2019 Status p ost gastric bypass for obesity 07/21/2019 Morbid obesity ([facility]) 07/21/2019 Severe obesity ([facility]) 07/19/2018 Spells 04/08/2016 Seizure disorder ([facility]) 04/30/2014 Insom kacey 11/04/2013 H/O gastric bypass 06/12/2013Past Surgical History:Procedur e Laterality Date ABDOMEN SURGERY PROC UNLISTED gastric bypass 2009 HX GASTRIC BYPASS roue-en-y HX ORTHOPAEDIC 1985 aarthroscopic knee surgery HX ORTHOPAED IC 1990 broken footNo Known AllergiesSocial HistoryTobacco Use Smoking status: Ness baez Smoker Smokeless tobacco: Never UsedSubstance Use Topics Alcohol use: N o Frequency: Never Drinks per session: 1 or 2 Binge frequency: NeverFamily HistoryP roblem Relation Age of Onset Diabetes Mother Heart Disease MotherObjective: Adult yue qureshi, cooperated with evaluation, appears to have involuntarytongue protrusions that he is unaware of. He spoke at normal rate and volume,reported he feels dizzy and tired , affect is stable and constricted, he deniedcurrent suicidal or homicidal thou ghts and perceptual disturbance.No data found.Assessment/Plan:Active Problems: Bipolar disorder with severe depression ([facility]) (10/29/2019)Psychotherapy (type and freque ncy) supportiveConsultation psychiatryMedications:Current Facility-A dministered MedicationsMedication Dose Route Frequency hydrocortisone (HYTONE) 2.5 % ointment Topical BID docusate sodium (COLACE) capsule 200 mg 200 mg Oral SHIELA LY bisacodyL (DULCOLAX) tablet 5 mg 5 mg Oral DAILY PRN cariprazine (VRAYLAR) ca psule 6 mg 6 mg Oral QHS amitriptyline (ELAVIL) tablet 150 mg 150 mg Oral QHS clonazePAM (KlonoPIN) tablet 1 mg 1 mg Oral BID lithium carbonate tablet 300 mg 30 0 mg Oral BID sodium chloride (NS) flush 5-40 mL 5-40 mL IntraVENous Q8H sodium chloride (NS) flush 5-40 mL 5-40 mL IntraVENous PRN acetaminophen (TYLENOL) tablet 650 mg 650 mg Oral Q4H PRN enoxaparin (LOVENOX) injection 40 mg 40 mg SubCUTAneous [id number] following information was reviewed and discussed: Patient reported he wantsto continue cariprazine 6mg daily and he submitted h is supply during thisadmission. Treating team will follow up with getting his supply e ndorsed to beused by the pharmacy department during index admission. the risks and be nefits of the proposed medicationSigned By: Vitaly Maradiaga MD 11/01/2019 Name Value Range Interpretation Code Description Data [facility](s) Supporting Document(s ) ID Date Data Source [id number] 11/01/2019 02:42:08 PM EDT [facility] General Daily Progress NoteAdmit Date: Hospital day: .tdSubjective:Patient to resume Vraylar [address] therapy per Dr Aguirre,Psych. PT notesreviewed. New problem of erythematous facial rash. No BM thus far.Hopeful ofdischarge this Sunday with current Improvement.Current Facility-Ad ministered MedicationsMedication Dose Route Frequency docusate sodium (COLACE) caps ule 200 mg 200 mg Oral DAILY bisacodyL (DULCOLAX) tablet 5 mg 5 mg Oral DAILY PRN cariprazine (VRAYLAR) capsule 6 mg 6 mg Oral QHS amitriptyline (ELAVIL) tablet 150 mg 150 mg Oral QHS clonazePAM (KlonoPIN) tablet 1 mg 1 mg Oral BID l ithium carbonate tablet 300 mg 300 mg Oral BID sodium chloride (NS) flush 5-40 mL 5-40 mL IntraVENous Q8H sodium chloride (NS) flush 5-40 mL 5-40 mL IntraVENous PRN acetaminophen (TYLENOL) tablet 650 mg 650 mg Oral Q4H PRN enoxaparin (LOVENOX ) injection 40 mg 40 mg SubCUTAneous Q24H 0.9% sodium chloride infusion 100 mL/hr IntraVENous CONTINUOUSObjective:Patient Vitals for the past 8 hrs: BP Temp Pulse Resp [id number]/01/19 0715 101/67 98 F (36.7 C) 70 20 98 %No intake/output data recor ded.10/29 1901 - 10/31 0700In: 1200 [I.V.:1200]Out: 2725 [Urine:2725] Physic al Exam: General: WD, WN. Alert, cooperative, no acute distress. HEENT: NC, Atraumatic. PERRLA, anicteric sclerae. Lungs: CTA Bilater ally. No Wheezing/Rhonchi/Rales. Heart: Regular rhythm, No murmur, No Rubs, No Gallops. Abdomen: Soft, Non distended, Non tender. +Bowel sounds. Extremities: No c/c/e. Psych: Not anxious or agitated. N eurologic: No acute neurological deficit. Skin: Facial r ashData Review No results found for this or any previous visit (from the past 24hour (s)). Ct Head Wo ContResult Date: 10/29/2019CT HEAD WO CONT Clinical data: ams Priors: 03/13/2015. Technique: Multiple axialimages were obtained from the skullbase to the vertex without administration ofintravenous contrast. Sagittal and coronal reconstr uction was performed.Utilizing manager talent management algorithm the examination was performed to optimizeimaging quality by utilizing the lowest possible radiation dose. Findings : Thereis no evidence of intracranial hemorrhage, masses, acute cortical infar ction, ormidline shift. There are no extra-axial fluid collections. There is noevidenceof hydrocephalus. The bony calvarium shows no evidence of fracture ordestructive bony process.IMPRESSION: No acute intracranial pathology seen.Xr Jennifer st PortResult Date: 10/29/2019XR CHEST PORT CLINICAL INDICATION PROVIDED:. "ams." TE CHNIQUE.: 1 views, chest.COMPARISON:. 08/16/2019. FINDINGS:. The patient has ta shelby a shallow inspirationon the present exam. Increased interstitial markings in both lungs may reflectvascular crowding in the setting of low lung volumes. There is no lobarconsolidation or large effusion. There is no pneumothorax.IMPRESSION:. No acute pulmonary process. Prominent interstitial markings arefelt to reflect vascular crop specialist 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 Repeat PA andlateral views the chest are advised i f there is clinical concern for pneumoniaor congestive failure.Assessment:Active Pro blems: Bipolar disorder with severe depression (HCC) (10/29/2019)Plan:Marco g status Name Value Range Interpretation Code Description Data [facility] rce(s) Supporting Document(s ) ID Date Data Source [id number] 11/01/2019 07:08:12 AM EDT [facility] Verbal shift change report given to Chandrakant Albert RN (oncoming nurse) byMelanie Hoffmann RN (offgoing nurse). Report incl uded the following informationSBAR, Kardex, Intake/Output, MAR and Recent Results. Name Value Range Interpretation Code Description Data [facility] rce(s) Supporting Document(s ) ID Date Data Source [id number] 10/31/2019 07:59:03 PM EDT [facility] Verbal shift change report given to Shreya adrian RN (oncoming nurse) by TRAM Palacio (offgoing nurse). Report included the following information SBAR,Kardex, Intake/Output, MAR and Recent Results. Name Value Range Interpretation Code Description [facility] ) ID Date Data Source [id number] 10/31/2019 05:09:32 PM EDT [facility] Telehealth ConsultationPursuant to the e mergency declaration under the Laird Act and the NationalEmergencies Act, 1135 wa iver authority and the Coronavirus Preparedness andResponse Supplemental Ap propriations Act, this Virtual Visit was conducted,with patient's (and/or legal g uardian's) consent, to reduce the patient's riskof exposure to COVID-19 and provide necessary care.[x] I have provided the patient with basic information about tel e-psychiatryand obtained their consent to participate in services using technology .I was at home while conducting this encounter.This session was conducted via [] Telephone [x] VideoconferenceSubjective:Patient: Maxwell BrayMRN #: [id number]: [id number]: 49 y.o. Sex: maleAdm it Date: 10/29/2019Attending: Ritika Canas, MDDate of Evaluation: 10/31/2019Reason fo r Referral: Maxwell Bray was admitted for confusion andhallucinations.History of P resenting Problem:Patient is 49 y.o. male refd for bipolar disorder.Psychiatric RO SROS for psychosis: positive for, paranoia, visual hallucinations, auditoryhallucina tions,ROS for , dysphoric mood, experiencing anhedonia, change in sleep pattern andde creased concentrationROS for Evangelina: Negative for manic symptoms such as elevated mood elevated mood,mood swings, grandiosity, decreased need for sleep, pressured spee ch, easydistractibility, and increase in goal directed activity, excessive increase in pleasurable activities.Social History:Social HistorySocioeconomic History Marital st atus: Spouse name: Not on file Number of children: Not on file Years o f education: Not on file Highest education level: Not on fileOccupational History Not on fileSocial Needs Financial resource strain: Not very hard Food insecurity Worry: Never true Inability: Never true Transportation needs Medical: No Non-m edical: NoTobacco Use Smoking status: Never Smoker Smokeless tobacco: Never UsedSub stance and Sexual Activity Alcohol use: No Frequency: Never Drinks per session: 1 or 2 Binge frequency: Never Drug use: No Sexual activity: Not Currently Partners : FemaleLifestyle Physical activity Days per week: 0 days Minutes per session: 0 min Stress: Very muchRelationships Social connections Talks on phone: Once a week Gets together: Once a week Attends shinto service: More than 4 times per year Active member of club or organization: No Attends meetings of clubs or organiz ations: Never Relationship status: Intimate partner violence Fear of curre nt or ex partner: No Emotionally abused: No Physically abused: No Forced sexual act ivity: NoOther Topics Concern Service No Blood Transfusions No Caffe ine Concern No Occupational Exposure No Hobby Hazards No Sleep Concern Yes Str ess Concern Yes Weight Concern Yes Special Diet No Back Care No Exercise No Bike Helmet No Seat Belt Yes Self-Exams NoSocial History Narrative Not on fileL egal History: Not reported.Family History:Family HistoryProblem Relation A ge of Onset Diabetes Mother Heart Disease MotherMedical History:Past Medical Histo ry:Diagnosis Date Other unknown and unspecified cause of morbidity or mortal ity cardiac cath at [facility] approx 6-8 months ago Other unknown and unspecified cause of morbidity or mortality concussions Other unknown and unspecified cause of morbidi ty or mortality "periodic disorientation" Other unknown and unspecified cause of m orbidity or mortality anxiety Psychiatric disorder anxiety, depressionPsychiatric History:Long standing psychiatric hx.Substance Use History:Social HistoryS ubstance and Sexual ActivityAlcohol Use No Frequency: Never Drinks per session: 1 or 2 Binge frequency: NeverSocial HistorySubstance and Sexual ActivityDrug Use NoObjective:Vitals/Physical Assessment:Patient Vitals for the past 8 hrs: BP Temp Pulse Resp [id number]/31/19 0754 120/60 97.2 F (36.2 C) 70 20 95 %MENTA L STATUS EXAM:FINDINGS WITHIN NORMAL LIMITS (WNL) UNLESS OTHERWISE STATED BELOW:Sens orium [id number] Well relatedAppearance: OverweightMotor Behavior: Not examined Speech: coherentThought Process: Relevant and linearThought Content Reports of AH , VH, mild confusionSuicidal ideations DeniesHomicidal ideations DeniesMood: d epressedAffect: appropriateMemory recent fairMemory remote: fairConcentration: fairAbstraction: AbstractInsight: fairReliability fairJudgment: fairImpre ssion: Continues to be distressed with his sx.Active Problems: Bipolar disorder wi th severe depression (HCC) (10/29/2019)Plan:Will adjust his medicatio ns and monitor.No current facility-administered medications on olivier e prior to encounter.Current Outpatient Medications on File Prior to EncounterMe dication Sig Dispense Refill cariprazine (Vraylar) 6 mg capsule Take 6 mg by mout h daily. Vraylar 3 mg capsule Take 6 mg by mouth nightly. amitriptyline (ELAVIL) 1 50 mg tablet Take 150 mg by mouth nightly. lithium carbonate 150 mg capsule Take 30 0 mg by mouth two (2) times daily(with meals). clonazePAM (KLONOPIN) 2 mg tabl et Take 1 mg by mouth two (2) times daily asneeded.Recommendations for Treatment/C onditions: pt has been receiving Vraylar. Willattempt to restart it.Referral To: p leonides re: non formulary drug.Ronal Aguirre MD 10/31/2019 3:38 PM Name Value Range Interpretation Code Description Data [facility] rce(s) Supporting Document(s ) ID Date Data Source [id number] 10/31/2019 04:37:18 PM EDT [facility] [place] [address]ETFQLLM: MAXWELL BRAYMRN: [id number]: [id number]#: [id number] DATE: 10/29/2019 CONSULTATIONHISTORY OF PRESENT ILLNESS: The patient is a 49-year-old male admit hyun via EDwith ahistory of being on the floor of his bedroom, unable to get up, and wi th slurredspeech. His CT scan of the head in the ER as well as a chest x-ray seem to beunremarkable. His complete blood work also unremarkable, and his lithium levelwasle ss than 0.2. Reportedly, the patient has been taking his medicationsincludinglith ium, amitriptyline, Vraylar, and Klonopin.PAST MEDICAL HISTORY: Cardiac cath at [facility] six to eight months ago, concussions,periodic disorientation, anx iety, depression.PAST SURGICAL HISTORY: Gastric bypass, arthroscopic knee surger y.CURRENT MEDICATIONS: Prior to admission medications include, amitriptyline 150mg atbedtime, lithium 300 mg by mouth two times daily, Klonopin 1 mg two times dailyasne eded, and Vraylar 3 mg capsule one at bedtime.SOCIAL HISTORY: He is a nd has one son. He was never a smoker.FAMILY HISTORY: Positive for diabetes in mothe r, as well as heart disease inmother.MENTAL STATUS EXAM: The patient presents as ca lm and cooperative. He claimsthat heis somewhat sleepy and lethargic. His mood is mildly dysphoric with aconstrictedaffect. He claims that he is doing okay, not in any pain. Sometimes, he hashallucinatory experiences, mostly visual where he sees a stranger and talks tohim,but then the person is simply not there. He does not claim distress due to it,although he believes it to be strange. He denies gallardo icidal and/or homicidalideations, intent or plan at present. He wants to continue h is currentmedications.Upon discharge, he will go back to his psychiatrist in the commu james.Cognitively,he seems to be fair. His memory to both recent and remote events appeared to befair. His insight into his condition is limited, so also his judgme nt. Hewouldprefer to take his medications as he has been taking now.Prognosis guarded .LABORATORY DATA: His lab reports at the time of admission indicate a WBC of8.1, RBC5.52, hemoglobin 16.7, hematocrit 51.8, and platelets 193. Sodium 136,potassium 4.4, chloride 106, CO2 of 22, glucose 108, BUN 16, creatinine 1.05, albumin 3.9,ALT 30, AST 27, alkaline phosphatase 139, lithium level 0.20. RONAL AGUIRRE MDDD: 10/30/2019 14:44:41/BR /[id number] / [id number] Name Value Range Interpretation Code Description Data [facility] rce(s) Supporting Document(s ) ID Date Data Source [id number] 10/31/2019 01:47:36 PM EDT [facility] General Daily Progress NoteAdmit Date: Hospital day: .tdSubjective:Patient reportedly doing better reference activi ty. Persistent symptoms ofnausea. Also chronic frontal headache. Admits to rafael maciel had halluciinationsnight of admissionNo bowel activity, eating well. Status disc ussed with his psychiatrist Derek yesterday, no other recommendations.Curr ent Facility-Administered MedicationsMedication Dose Route Frequen cy amitriptyline (ELAVIL) tablet 150 mg 150 mg Oral QHS clonazePAM (KlonoPIN) table t 1 mg 1 mg Oral BID lithium carbonate tablet 300 mg 300 mg Oral BID haloperi doL (HALDOL) tablet 2 mg 2 mg Oral Q6H PRN sodium chloride (NS) flush 5-40 mL 5-40 mL IntraVENous Q8H sodium chloride (NS) flush 5-40 mL 5-40 mL IntraVENous PRN acetaminophen (TYLENOL) tablet 650 mg 650 mg Oral Q4H PRN enoxaparin (LOVENOX) injec tion 40 mg 40 mg SubCUTAneous Q24H 0.9% sodium chloride infusion 100 mL/hr Intr aVENous CONTINUOUSObjective:Patient Vitals for the past 8 hrs: BP Temp Pulse Resp S pO205/02/11 0754 120/60 97.2 F (36.2 C) 70 20 95 %No intake/output data recorded. 1901 - 10/30 0700In: 1792 [P.O.:592; I.V.:1200]Out: 1050 [Urine:1050] Physica l Exam: General: WD, Obese. Alert, cooperative, no acute distress. HEENT: NC, Atraumatic. PERRLA, anicteric sclerae. Lungs: CTA Bilater ally. No Wheezing/Rhonchi/Rales. Heart: Regular rhythm, No murmur, No Rubs, No Gallops. Abdomen: Soft, Non distended, Non tender. +Bowel sounds. Extremities: No c/c/e. Psych: Not anxious or agitated. N eurologic: No acute neurological deficit.Data Review No results found for this or any previous visit (from the past 24hour(s)). Ct Head Wo ContResult Date: 10/29/2019CT HEAD WO CONT Clinical data: ams Priors: 03/13/2015. Technique: Multiple axialimag es were obtained from the skullbase to the vertex without administration ofintraven ous contrast. Sagittal and coronal reconstruction was performed.Utilizing m anufacturer algorithm the examination was performed to optimizeimaging quality by utilizing the lowest possible radiation dose. Findings: Thereis no evidence of intracr anial hemorrhage, masses, acute cortical infarction, ormidline shift. There are n o extra-axial fluid collections. There is noevidenceof hydrocephalus. The bony elena varium shows no evidence of fracture ordestructive bony process.IMPRESSION: N o acute intracranial pathology seen.Xr Chest PortResult Date: 10/29/2019XR CHEST PORT C LINICAL INDICATION PROVIDED:. "ams." TECHNIQUE.: 1 views, chest.COMPARISON:. 08/16/2019. FINDINGS:. The patient has taken a shallow inspirationon the present exam. Increased interstitial markings in both lungs may reflectvascular crowding in the sett ing of low lung volumes. There is no lobarconsolidation or large effusion. Th ere is no pneumothorax.IMPRESSION:. No acute pulmonary process. Prominent interstitia l markings arefelt to reflect vascular cro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 R epeat PA andlateral views the chest are advised if there is clinical concern for pneumoniaor congestive failure.Assessment:Active Problems: Bip olar disorder with severe depression (HCC) (10/29/2019)Plan:Hopeful of discharge in 1 -2 days, with ECT as soon as possible Name Value Range Interpretation Code Description Data [facility] rce(s) Supporting Document(s ) ID Date Data Source [id number] 10/31/2019 12:59:26 PM EDT [facility] physical Therapy TREATMENTPatient: Maxwell Bray (49 y.o. male)Date: 10/31/2019Diagnosis: Bipolar disorder with severe depression (HCC) [F31.4]Bipolar disorder with severe depression (HCC) [F 31.4] <principal problem notspecified>Precautions: Fall, SeizureA SSESSMENT:Patient presents with improvement with activity tolerance with no c/o dizz inesswith ambulation today. Patient is independent with bed mobility, modifiedi ndependence for sit to stand and independent ambulation of 60 feet without theuse of an assistive device. Patient reported slight fatigue followingambulation.Progression toward goals:[x] Improving appropriately and progressing toward goals[] Improv ing slowly and progressing toward goals[] Not making progress toward goals and gerson n of care will be adjustedPLAN:Patient continues to benefit from skilled interv ention to address the aboveimpairments. Continue treatment per established plan of care.Discharge Recommendations: Home to familyFurther Equipment Recommendations for Discharge: NoneSUBJECTIVE:Patient stated "I feel better today."OBJECTIVE DATA SUM ROSSI:Critical Behavior:Neurologic State: DrowsyOrientation Level: Oriented X4Cogn ition: Appropriate decision making, Appropriate safety awareness, Followscom mandsSafety/Judgement: Awareness of environmentFunctional Mobility Training: Bed Mobility:Rolling: IndependentSupine to Sit: IndependentSit to Supine: Independe ntScooting: IndependentTransfers:Sit to Stand: Modified independentStand to Sit: Modified independentInterventions: Verbal cuesBalance:Sitting: IntactStanding: Wit hout supportAmbulation/Gait Training:Distance (ft): 60 Feet (ft)Assistive Device: Othe r (comment)(None)Ambulation - Level of Assistance: IndependentGait Abnormalitie s: Decreased step clearanceBase of Support: WidenedSpeed/Alisa: SlowInterventions: Safety awareness trainingNeuro Re-Education:Patient sits for a few rajat kenton at bed side with manual/verbal cueing properposture.Patient stands for few mi nutes with manual and verbal Cueing for proper postureTherapeutic Exercises/Acti vity:AROM of UE and LE in sitting and Standing.Bed mobilityTransfersAmbulation Pain:Pain Scale 1: (P) Numeric (0 - 10)Pain Intensity 1: (P) 0Activity Tolerance:Pat ient tolerated treatment well.Please refer to the flowsheet for vital signs taken duri ng this treatment.After treatment:[] Patient left in no apparent distress sit ting up in chair[x] Patient left in no apparent distress in bed[x] Call moffett left within reach[x] Nursing notified[] Caregiver present[] Bed alarm activatedComments:COMMUNICATION/COLLABORATION:The patient's plan of care was discussed vijay h: Registered Nadia Enrique, PT,DPT Time Calculation: 24 mins Name Value Range Interpretation Code Description Data [facility] rce(s) Supporting Document(s ) ID Date Data Source [id number] 10/31/2019 07:10:46 AM EDT [facility] Bedside and Verbal shift change report g cici Pablo RN (oncoming nurse)by Cristofer Valenzuela RN (offgoing nurse). Repo rt included the following information SBAR, Kardex, MARand Recent Results. Name Value Range Interpretation Code Description Data [facility](s) Supporting Document(s ) ID Date Data Source [id number] 10/30/2019 11:27:14 PM EDT [facility] Problem: Falls - Risk ofGoal: *Absence o f FallsDescription: Document Carmen Fall Risk and appropriate interventions in theflow sheet.Outcome: Progressing Towards GoalNote: Fall Risk Interventions:Mobility Interve ntions: Patient to call before getting OOB, PT Consult formobility concernsMedicatio n Interventions: Evaluate medications/consider consulting pharmacy ,Patient to call before getting OOB, Teach patient to arise slowlyElimination Inter ventions: Call light in reach, Patient to call for help withtoileting needs, Toile ting schedule/hourly rounds, Urinal in reachHistory of Falls Interventions: Rosio luate medications/consider consultingpharmacy, Door open when patie nt unattended Name Value Range Interpretation Code Description [facility]s ) ID Date Data Source [id number] 10/30/2019 08:09:55 PM EDT [facility] [facility] Rn Radha called as pt has been hallucin ating Sees children in room ? He mayhave taken extra elavil Now with anti cholin ergic effect as AMS andHallucinations ? Or taken extra klonopin and now may be with drawing ? With AMSHe is also off his Vraylar medication ,For practical purposes he an be given 5 mg haldol now , with 2 mg PRN q hrsovernightKlonopin does not show on Ur ine drug screen, seems like it was not done .Vraylar can be ordered as non formulary also At [facility] Name Value Range Interpretation Code Description [facility] ) ID Date Data Source [id number] 10/30/2019 08:06:30 PM EDT [facility] Telephoned Dr. Oc tompkins pt's c/o new sy mptoms of hallucinations. Orderedreceived, relayed to RN, TRAM Marroquin on shift superintendent Name Value Range Interpretation Code Description Data [facility] Supporting Document[facility]s ) ID Date Data Source [id number] 10/30/2019 08:01:35 PM EDT [facility] Verbal shift change report given to Cecilia wells (oncoming nurse) by Samy Albert RN (offgoing nurse). Report included the fo llowing information SBAR, ProcedureSummary, Intake/Output, MAR and Recent Results. Name Value Range Interpretation Code Description Data [facility](s) Supporting Document(s ) ID Date Data Source [id number] 10/30/2019 02:58:51 PM EDT [facility] Problem: Mobility Impaired (Adult and Pe diatric)Goal: *Therapy Goal (Edit Goal, Insert Text)Note:PHYSICAL THERAPY EVALUA TIONPatient: Maxwell Bray (49 y.o. male)Date: 10/30/2019Primary Diagnosis: Bi polar disorder with severe depression (HCC) [F31.4]Bipolar disorder with severe depr ession (HCC) [F31.4]Precautions: Fall, SeizureASSESSMENT :Based on the objectiv e data described below, the patient is alert and oriented x4. Patient presents with d ifficulty with functional mobility due to dizzinessduring mobility. Patient partic ipated in bed mobility and sat unsupported atedge of bed for < 1 minute and started c/o dizziness and unable to toleratesitting. Patient is asked to go back to bed. Prachi ent is helped back to bed withneeds within reach. RN notified.Patient will benefit from skilled intervention to address the above impairments.Patient's rehabilitati on potential is considered to be GoodFactors which may influence rehabilitation poten tial include:[] None noted[] Mental ability/status[x] Medical condition[] Home/family situation and support systems[] Safety fredy reness[] Pain tolerance/management[] Other:PLAN :Recommendations and P lanned Interventions:[x] Bed Mobility Training [x] Jovita romuscularRe-Education[x] Transfer Training [] Orthoti c/ProstheticTraining[x] Gait Training [] M odalities[x] Therapeutic Exercises [] Edema Management/Control[ x] Therapeutic Activities [x] Patient and FamilyTraining/Educa tion[] Other (comment):Frequency/Duration: Patient wi ll be followed by physical therapy 3 times a weekto address goals.Discharge Recommend ations: To Be Determined following transfers and ambulation.Further Equipment Recomme ndations for Discharge: To be determinedSUBJECTIVE:Patient stated &quo t;I have a headache ."OBJECTIVE DATA SUMMARY:Past Medical History:Diagnosis D ate Other unknown and unspecified cause of morbidity or mortality cardiac cath at [facility] approx 6-8 months ago Other unknown and unspecified cause of morbidity or mortal ity concussions Other unknown and unspecified cause of morbidity or mortality "periodi c disorientation" Other unknown and unspecified cause of morbidity or mortal ity anxiety Psychiatric disorder anxiety, depressionPast Surgical History:Procedur e Laterality Date ABDOMEN SURGERY PROC UNLISTED gastric bypass 2009 HX GASTRIC BYPASS roue-en-y HX ORTHOPAEDIC 1985 aarthroscopic knee surgery HX ORTHOPAEDI C 1990 broken footPrior Level of Function/Home Situation: independentHome SituationHome Environment: Private residence# Steps to Enter: 1One/Two Stor y Residence: One storyLiving Alone: NoSupport Systems: Family member(s)Patient Expects to be Discharged to:: Patient roomCurrent DME Used/Available at Home: NoneCritical Behavior:Neurologic State: AlertOrientation Level: Oriented B1Wyfwvyvhm: Appropriate for age attention/concentrationSafety/Judgement: Awareness of environmentSkin:Strength:Strength: Gener ally decreased, functionalTone & Sensation:Tone: NormalSensation: IntactR danelle Of Motion:AROM: Within functional limitsPROM: Within functional limitsFunc tional Mobility:Bed Mobility:Rolling: Modified independentSupine to Sit: Conta ct guard assistanceSit to Supine: Contact guard assistanceScooting: Contact guard assistanceTransfers:Balance:Sitting: IntactStanding: (Did not test )Ambulatio n/Gait Training:DNTTherapeutic Exercises:AROM of UE and LE in Sitting and standingPain :Pain Scale 1: Numeric (0 - 10)Pain Intensity 1: 0Activity Tolerance:Poor due to dizzi nessPlease refer to the flowsheet for vital signs taken during this treatment.After treatment:[] Patient left in no apparent distress sitting up in chair[x] Patient left in no apparent distress in bed[x] Call moffett left within reach[x] Nursing notified[] Caregiver present[] Bed alarm ac tivatedCOMMUNICATION/EDUCATION:The patient's plan of care was discussed with: Cynthia hodge Nurse.[x] Fall prevention education was provided and the patient/c aregiverindicated understanding.[x] Patient/family have participated as able in goal setting and plan ofcare.[x] Patient/family agree to work toward stat ed goals and plan of care.[] Patient understands intent and goals of therapy, but is neutral abouthis/her participation.[] Patient is unable to participate in goal setting and plan of care.Comments:Thank you for this referra Christ Enrique, PT,DPT Time Calculation: 19 mins Name Value Range Interpretation Code Description Data [facility] Supporting [facility](s ) ID Date Data Source [id number] 10/30/2019 02:50:37 PM EDT [facility] Telehealth ConsultationPursuant to the e mergency declaration under the Laird Act and the NationalEmergencies Act, 1135 wa iver authority and the Coronavirus Preparedness andResponse Supplemental Ap propriations Act, this Virtual Visit was conducted,with patient's (and/or legal g uardian's) consent, to reduce the patient's riskof exposure to COVID-19 and provide necessary care.[] I have provided the patient with basic information about tel e-psychiatry andobtained their consent to participate in services using technology .I was at home while conducting this encounter.This session was conducted via [] Telephone [] VideoconferenceSubjective:Patient: Maxwell BrayMRN #: [id number]: [id number]: 49 y.o. Sex: maleAdm it Date: 10/29/2019Attending: Ritika Canas, MDDate of Evaluation: 10/30/2019Reason fo r Referral: Maxwell Bray was admitted for being found on the floorand was unable t o get up.History of Presenting Problem:Patient is 49 y.o. male refd to psychiatry for having psychiatric illness.Consult dictated.Ronal Ayala MD 10/30/2019 11:14 AM Name Value Range Interpretation Code Description Data [facility] Supporting [facility]s ) ID Date Data Source [id number] 10/30/2019 02:06:26 PM EDT [facility] Care Management InterventionsPCP Verifie d by CM: YesPalliative Care Criteria Met (RRAT>21 & CHF Dx)?: NoMode of Transport at Discharge: Other (see comment)(family)Transition of Care Consu lt (CM Consult): Discharge PlanningPhysical Therapy Consult: NoOccupational Therapy Consult: NoSpeech Therapy Consult: NoCurrent Support Network: Lives with Spouse, Own Home( [place] [phone])Confirm Foll ow Up Transport: FamilyThe Patient and/or Patient Human Service Coordinator was Provided with a Choice of Providerand Agrees with the Discharge Plan?: YesFreedom of Choice Cookie st was Provided with Basic Dialogue that Supports thePatient's Individualized Gerson n of Care/Goals, Treatment Preferences and Sharesthe Quality Data Associated with t he Providers?: YesVeteran Resource Information Provided?: RefusedDischarge LocationDischarge Placement: HomePatient is a 49 year old male admitted on 10/29/19--spo ke with patient on thephone who states he lives home with his , is completely independent EGG TESTER, nohome DME. Patient normally works (pre-covid) and drives. CM dept roleexplained, patient is currently denying any HC or rehab needs and states hiswife will drive him home upon DC. PT eval is ordered and pending. CM dept laila lfollow if patient has any PT needs.CASE MANAGEMENT PSYCHOSOCIAL ASSESSMENTMaxwell Bray Admission Date: 10/29/2019MRN: [id number] of : 1970Current date: 10/30/2019DISCHARGE PLAN: homePatient Info rmation:Patients Preferred Name: Tim Arrived Via: StretcherTransferred [facility] facility: NoInformation Obtained From: PatientPatient Objects to Receiving Bloo d: NoMRSA Assessment: Not applicableAuditory Impairment: NoneRetired Read Only-Readmi t Risk ToolSupport Systems: Family member(s)History of Falls Within Past 3 Months: NoNeeds Assistance with Wound Care AND/OR Mgnt of O2, Nebulizer: NoRequires Financial, Physical and/or Educational Assistance With Medications: NoHistory o f Mental Illness: NoLiving Alone: NoPCP: Ritika Canas MDAdmitting Provider: Cristi Canas MDRESTON HOSPITAL [facility]OMEC[facility] EGG TESTER: naPayor: Payor: [facility] [employer] / Plan: [facility] /Product Type: HMO /[facility] Payor: @[email or web address]@Bipolar disorder with severe depression (HCC) [F 31.4]Bipolar disorder with severe depression (HCC) [F31.4]Patient Active Problem List Diagnosis Code H/O gastric bypass Z98.84 Insomnia G47.00 Neuropathic pain of surekha ulder M79.2 Seizure disorder ([facility]) G40.909 Spells R68.89 Severe obesity ([facility]) E66. 01 Depression F32.9 Anxiety F41.9 Bipolar disorder (HCC) F31.9 Depressive disorde r F32.9 Status post gastric bypass for obesity Z98.84 Morbid obesity ([facility]) E66 .01 Mixed anxiety and depressive disorder F41.8 Vitamin D deficiency E55.9 Bipol ar disorder with severe depression ([facility]) F31.4Social HistorySubstance and Sexual ActivityAlcohol Use No Frequency: Never Drinks per session: 1 or 2 Binge freque ncy: NeverNumber of stairs into patient home:DME:Cohabitants:Abuse Screen:Physic al Abuse/Neglect: DeniesSexual Abuse: DeniesVerbal Abuse: DeniesOther Abuse/Is sues: Patient unable to answerINSURANCE INFORMATION: (Verification)Primary Note s:Secondary Notes:Workmen's Comp Notes:No-Fault Notes:SSD Notes:Un-Insure d Notes:Long-Term Care Insurance If Applicable Notes:Current Functioning:Aftab haskins barriers: Notes:Understanding nature/impact of illness: Notes:Ability to participate in plan: Notes:Realistic Problem solving and planning: Notes:Adeq uate coping skills: Notes:Baptism/Cultural barriers: Notes:If unable to assess or n ot applicable: Notes:Suicide Assessment:Primary Diagnosis or Primary Complaint of an Emotional Behavior Disorder: NoPatient is Currently Experiencing Depr ession: NoSuicidal Ideation/Attempts: NoHomicidal Ideation/Attempts: NoAlcohol /Drug Intoxication: NoHallucinations/Delusions: NoPending, A ctive, or Temporary Longterm Orders: NoAggressive/Inappropriate Behavior: NoR eadmit Risk:Support Systems: Family member(s)Advanced Care Planning:Confirm Advance Directive: NoneDiscussed with the patient and all questions fully answered . He will call me ifany problems arise. Name Value Range Interpretation Code Description Data Melani rce(s) Supporting Document(s ) ID Date Data Source [id number] 10/30/2019 12:38:13 PM EDT [facility] General Daily Progress NoteAdmit Date: Hospital day: .tdSubjective:Patient markedly improved this am, speech now no rmal. Denies possibleinadvertent overdose of chronic meds. Accepting of psych consult . PT toevaluate. Claims symptoms of mild nausea. Meds reviewed claims to be takin gElavil G 150 mg HS ,Klonopin 1 mg twice a day, [place] 300 twice daily, Vraylar3 m g dailyCurrent Facility-Administered MedicationsMedication Dose Route Frequen cy sodium chloride (NS) flush 5-40 mL 5-40 mL IntraVENous Q8H sodium chloride (NS) flush 5-40 mL 5-40 mL IntraVENous PRN acetaminophen (TYLENOL) tablet 650 mg 6 50 mg Oral Q4H PRN enoxaparin (LOVENOX) injection 40 mg 40 mg SubCUTAneous Q24H 0.9% sodium chloride infusion 100 mL/hr IntraVENous CONTINUOUSObjective:Patient Vitals for the past 8 hrs: BP Temp Pulse Resp [id number]/30/19 0727 (!) 130/96 98 F (36.7 C) 81 20 95 %10/30/19 0351 (!) 118/97 98 F (36.7 C) 80 20 94 %No intake/output marlon a recorded.10/27 190 - 10/29 07In: 148.3 [I.V.:148.3]Out: - Physical Exam: General: WD, Obese. Alert, cooperative, no acute distress. HEENT: NC , Atraumatic. PERRLA, anicteric sclerae. Lungs: CTA Bilaterally. No Whee zing/Rhonchi/Rales. Heart: Regular rhythm, No murmur, No Rubs, No Gallops. Abdomen: Soft, Non distended,obese, Non tender. +Bowel melani nds. Extremities: No c/c/e. Psych: Flat affect Neurolog ic: No acute neurological deficit.Data ReviewRecent Results (from the past 24 h our(s))GLUCOSE, POC Collection Time: 10/29/19 11:26 AMResult Value Ref Range Glucose, bedside 102 65 - 110 MG/DLCBC WITH AUTOMATED DIFF Collection Time: 10/30/19 6:40 AMR esult Value Ref Range WBC 4.8 4.8 - 10.6 K/uL RBC 4.59 (L) 4.70 - 6.00 M/uL HGB 14.0 1 4.0 - 18.0 g/dL HCT 42.7 42.0 - 52.0 % MCV 93.0 81.0 - 94.0 FL MCH 30.5 27.0 - 35.0 PG MCHC 32.8 30.7 - 37.3 g/dL RDW 13.3 11.5 - 14.0 % PLATELET 159 130 - 400 K/uL MPV 8.6 (L) 9.2 - 11.8 FL NRBC 0.0 0 PER 100 WBC ABSOLUTE NRBC 0.00 0.0 - 0.01 K/uL NEUTR OPHILS 54 48.0 - 72.0 % LYMPHOCYTES 32 18.0 - 40.0 % MONOCYTES 9 2.0 - 12.0 % EOSINOPH ILS 5 0.0 - 7.0 % BASOPHILS 1 0.0 - 3.0 % IMMATURE GRANULOCYTES 0 0 - 0.5 % ABS. N EUTROPHILS 2.6 2.3 - 7.6 K/UL ABS. LYMPHOCYTES 1.5 0.9 - 4.2 K/UL ABS. MONO CYTES 0.4 0.1 - 1.7 K/UL ABS. EOSINOPHILS 0.2 0.0 - 1.0 K/UL ABS. BASOPHILS 0.0 0.0 - 0.4 K/UL ABS. IMM. GRANS. 0.0 0.0 - 0.17 K/UL DF AUTOMATEDMETABOLIC PANEL, BASIC Colle ction Time: 10/30/19 6:40 AMResult Value Ref Range Sodium 139 136 - 145 mmol/L Potass ium 3.6 3.5 - 5.1 mmol/L Chloride 110 (H) 98 - 107 mmol/L CO2 24 21 - 32 mmol/L Anion gap 9 (L) 10 - 20 mmol/L Glucose 96 74 - 106 mg/dL BUN 10 7 - 18 mg/dL Creatinine 0.8 1 0.70 - 1.30 mg/dL GFR est AA >60 >60 ml/min/1.73m2 GFR est non-AA >60 >60 ml/ min/1.73m2 Calcium 8.2 (L) 8.5 - 10.1 mg/dL Ct Head Wo ContResult Date: 10/29/2019CT H EAD WO CONT Clinical data: ams Priors: 03/13/2015. Technique: Multiple axialimag es were obtained from the skullbase to the vertex without administration ofintraven ous contrast. Sagittal and coronal reconstruction was performed.Utilizing m anufacturer algorithm the examination was performed to optimizeimaging quality by utilizing the lowest possible radiation dose. Findings: Thereis no evidence of intracr anial hemorrhage, masses, acute cortical infarction, ormidline shift. There are n o extra-axial fluid collections. There is noevidenceof hydrocephalus. The bony elena varium shows no evidence of fracture ordestructive bony process.IMPRESSION: N o acute intracranial pathology seen.Xr Chest PortResult Date: 10/29/2019XR CHEST PORT C LINICAL INDICATION PROVIDED:. "ams." TECHNIQUE.: 1 views, chest.COMPARISON:. 08/16/2019. FINDINGS:. The patient has taken a shallow inspirationon the present exam. Increased interstitial markings in both lungs may reflectvascular crowding in the sett ing of low lung volumes. There is no lobarconsolidation or large effusion. Th ere is no pneumothorax.IMPRESSION:. No acute pulmonary process. Prominent interstitia l markings arefelt to reflect vascular cro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 R epeat PA andlateral views the chest are advised if there is clinical concern for pneumoniaor congestive failure.Assessment:Active Problems: Bip olar disorder with severe depression (HCC) (10/29/2019)Plan:To resume meds, await psy ch input Name Value Range Interpretation Code Description Data [facility](s) Supporting Document(s ) ID Date Data Source [id number] 10/30/2019 07:52:05 AM EDT [facility] Verbal shift change report given to Chandrakant rosa RN (oncoming nurse) Tavares UGALDE (offgoing nurse). Report included the fo llowin information SBAR,Kardex, Procedure Summary, Intake/Output, MAR and Recent R esults. Name Value Range Interpretation Code Description Data [facility]s ) ID Date Data Source [id number] 10/30/2019 06:40:05 AM EDT [facility] Pt. AOX3, periodic confusion. Commode an d urinal at bedside. Seizure and fallprecaution measures in place. Voice s no complaint during shift . Name Value Range Interpretation Code Description Data [facility] Supporting Document(s ) ID Date Data Source [id number] 10/30/2019 07:29:12 AM EDT [facility] Name Value Range Interpretation Description Data Sup porting Code Source(s) Document(s ) Sodium 139 136-145 [facility] [Moles/volume] mmol/L [facility] in Serum or Hospital Plasma Potassium 3.6 3.5-5.1 [facility] [Moles/volume] mmol/L [facility] in Serum or Hospital Plasma Chloride 110 98-107 Above high normal [facility] [Moles/volume] mmol/L [facility] in Serum or Hospital Plasma Carbon 24 21-32 [facility] dioxide, total mmol/L [facility] [Moles/volume] Hospital in Serum or Plasma Anion gap in 9 mmol/L 10-20 Below low normal [facility] Go od Serum or [facility] Plasma Hospital Glucose 96 mg/dL 74-106 [facility] [Mass/volume] [facility] in Serum or Hospital Plasma Urea nitrogen 10 mg/dL 7-18 [facility] [Mass/volume] [facility] in Serum or Hospital Plasma Creatinine 0.81 0.70-1.3 [facility] [Mass/volume] mg/dL 0 [facility] in Serum or Hospital Plasma Glomerular >60 [facility] filtration [facility] rate/1.73 sq M Hospital predicted among blacks [Volume Rate/Area] in Serum or Plasma by Creatinine-bas ed formula (MDRD) Glomerular >60 [facility] filtration [facility] rate/1.73 sq M Hospital predicted among non-blacks [Volume Rate/Area] in Serum or Plasma by Creatinine-bas ed formula (MDRD) Calcium 8.2 8.5-10.1 Below low normal [facility] [Mass/volume] mg/dL [facility] in Serum or Hospital Plasma ID Date Data Source [id number] 10/30/2019 07:05:07 AM EDT [facility] Name Value Range Interpretation Description Data Sup porting Code Source(s) Document(s ) Leukocytes 4.8 K/uL 4.8-10.6 [facility] - [#/volume] in Good Blood by [facility] Automated count [facility] Erythrocytes 4.59 4.70-6.0 Below low normal [facility] - [#/volume] in M/uL 0 [facility] Blood by [facility] Automated count Hospital Hemoglobin 14.0 14.0-18. [facility] - [Mass/volume] in g/dL 0 [facility] Blood [facility] Hematocrit 42.7 % 42.0-52. [facility] - [Volume 0 Good Fraction] of [facility] Blood by Hospital Automated count Erythrocyte mean 93.0 FL 81.0-94. [facility] - corpuscular 0 Good volume [Entitic [facility] volume] by Hospital Automated count Erythrocyte mean 30.5 PG 27.0-35. [facility] - corpuscular 0 [facility] hemoglobin [facility] [Entitic mass] Hospital by Automated count Erythrocyte mean 32.8 30.7-37. [facility] - corpuscular g/dL 3 [facility] hemoglobin [facility] concentration Hospital [Mass/volume] by Automated count Erythrocyte 13.3 % 11.5-14. [facility] - distribution 0 Good width [Ratio] by [facility] Automated count [facility] Platelets 159 K/uL 130-400 [facility] - [#/volume] in Good Blood by [facility] Automated count [facility] Platelet mean 8.6 FL 9.2-11.8 Below low normal [facility] - volume [Entitic Good volume] in Blood [facility] by Automated Hospital count Nucleated 0.0 PER 0 [facility] - erythrocytes/100 100 WBC Good leukocytes [facility] [Ratio] in Blood Hospital Nucleated 0.00 0.0-0.01 [facility] - erythrocytes K/uL Good [#/volume] in [facility] Segmented 54 % 48.0-72. [facility] - neutrophils/100 0 Good leukocytes in [facility] Lymphocytes/100 32 % 18.0-40. [facility] - leukocytes in 0 [facility] Blood [facility] Monocytes/100 9 % 2.0-12.0 [facility] - leukocytes in [facility] Blood [facility] Eosinophils/100 5 % 0.0-7.0 [facility] - leukocytes in [facility] Blood [facility] Basophils/100 1 % 0.0-3.0 [facility] - leukocytes in [facility] Blood [facility] Immature 0 % 0-0.5 [facility] - granulocytes/100 Good leukocytes in [facility] Blood by Hospital Automated count Segmented 2.6 K/UL 2.3-7.6 [facility] - neutrophils Good [#/volume] in [facility] Hospital Lymphocytes 1.5 K/UL 0.9-4.2 [facility] - [#/volume] in [facility] Blood [facility] Monocytes 0.4 K/UL 0.1-1.7 [facility] - [#/volume] in [facility] Eosinophils 0.2 K/UL 0.0-1.0 [facility] - [#/volume] in [facility] Basophils 0.0 K/UL 0.0-0.4 [facility] - [#/volume] in [facility] Immature 0.0 K/UL 0.0-0.17 [facility] - granulocytes Good [#/volume] in [facility] Blood [facility] Automated count Differential [facility] - cell count [facility] method [facility] ID Date Data Source [id number] 10/29/2019 07:40:21 PM EDT [facility] Verbal shift change report given to Wai rogers RN(oncoming nurse) by Elizabeth Meehan RN (offgoing nurse). Report included the fo llowing information SBAR, Kardex, EDSummary, Intake/Output, MAR and Recent Results. Name Value Range Interpretation Code Description Data Melani rce(s) Supporting Document(s ) ID Date Data Source [id number] 10/30/2019 06:54:22 PM EDT [facility] Name Value Range Interpretation Description Data Sup porting Code Source(s) Document(s ) Color of Urine YEL [facility] Appearance of CLEAR [facility] - Urine [facility] Specific gravity 1.015 1.003-1. [facility] - of Urine by 030 [facility] Refractometry [facility] pH of Urine by 6.0 4.6-8.0 [facility] - Test strip [facility] Protein NEG [facility] - [Mass/volume] in Good Urine by Test [facility] Glucose NEG [facility] - [Mass/volume] in Good Urine by [facility] Automated test [facility] strip Ketones NEG [facility] - [Presence] in Good Urine by [facility] Automated test [facility] strip Bilirubin.total NEG [facility] - [Presence] in Good Urine [facility] Hemoglobin NEG [facility] - [Presence] in Good Urine by Test [facility] Urobilinogen 1.0 0.2-1.0 [facility] - [Presence] in EU/dL Good Urine by [facility] Automated test [facility] strip Nitrite NEG [facility] - [Presence] in Good Urine by [facility] Automated test [facility] strip Leukocyte NEG [facility] - esterase Good [Presence] in [facility] Urine by Hospital Automated test strip ID Date Data Source [id number] 10/29/2019 06:14:12 PM EDT [facility] Spoke with to clarify meds..correct doses obtained Name Value Range Interpretation Code Description Data Melani rce(s) Supporting Document(s ) ID Date Data Source [id number] 10/29/2019 06:01:22 PM EDT [facility] Pt unsure of dose of Vraylar will call w berta Name Value Range Interpretation Code Description Data Melani rce(s) Supporting Document(s ) ID Date Data Source [id number] 10/29/2019 03:56:40 PM EDT [facility] [id number] [facility]Moving[facility] GSH 4 GEMA [place] MED SURG [address] [facility] [address] [phone] Maxwell Bray (Male) [id number] ES I 2 ED Dispo:ADMIT Chief Complaint: Dysarthria, Lethargy Diagnosis: Altered mental status, unspecified altered mental statu s type [] Bipolar disorder with severe depression (HCC) [] Current Providers: Att ending: Cole Ernandez; Cristi Canas Consulting Provider: Cristi Canas Primary Nurse: Kristy Moss Tech: HERMANN GonzalesN: [id number] [employer] Group [id number] - Bs [facility] MrnMRN: [id number] Print Group [id number] - [facility]sh[facility] Age Sex 1970 AGE 49 SEX Male Primary Care Provider: Ritika Canas MD Fnykqourr: (No Kn own Allergies)Date Reviewed: 10/29/2019Reviewed by: Ritika Canas MD - Review CompleteED Provider Notes: All no tesHNO ID: [id number]: Cristobal Ernandez MDService: -Author Type: PhysicianFiled: 10/29/19 1428Note Text:T he history is provided by the spouse.10:55 AM: Maxwell Spain is a 49 y.o. male with h/o anxiety anddepress ion who presents to the ED via EMS after his found him thismorning and reports he was lethargic , confused, and slurring his speech.No other history is obtainable at this time as the patient is unable to give any history secondary to his mental status.Past Medical History:Diagnosis Date Other unknown an d unspecified cause of morbidity or mortality cardiac cath at [facility] approx 6-8 months ago Other unknown and unspecified cause of morbidity or mortality concussions Other unknown and unspecified cause of morbidi ty or mortality "periodic disorientation" Other unknown and unspecified cause of morbidity or mortal ity anxiety Psychiatric disorder anxiety, depressionPast Surgical History:Procedure Laterality Date ABDOM EN SURGERY PROC UNLISTED gastric bypass 2009 HX GASTRIC BYPASS roue-en-y HX ORTHOPAEDIC 1985 aarthros copic knee surgery HX ORTHOPAEDIC 1990 broken footFamily History:Problem Relation Age of Onset D iabetes Mother Heart Disease MotherSocial HistorySocioeconomic History Marital status: Spouse name: Not on file Number of children: Not on file Years of education: Not on file Highest educatio n level: Not on fileOccupational History Not on fileSocial Needs Financial resource strain: Not very hard Food insecurity Worry: Never true Inability: Never true Transportation needs Medical: No Non-m edical: NoTobacco Use Smoking status: Never Smoker Smokeless tobacco: Never UsedSubstance and Sexual Activity Alcohol use: No Frequency: Never Drinks per session: 1 or 2 Binge frequency: Never Drug use: No Sexual activity: Not Currently Partners: FemaleLifestyle Physical activity Days per week: 0 days Minutes per session: 0 min Stress: Very muchRelationships Social connections Talks on phone: Once a week Gets together: Once a week Attends shinto service: More than 4 times per year Active member of club or organization: No Attends meetings of clubs or organizations: Never Relationship status: Intimate partner violence Fear of current or ex partner: No Emotionally abused: No Physically abused: No Force d sexual activity: NoOther Topics Concern Service No Blood Transfusions No Caffeine Concern No Occupational Exposure No Hobby Hazards No Sleep Concern Yes Stress Concern Yes Weight Concern Yes Special Diet No Back Care No Exercise No Bike Helmet No Seat Belt Yes Self-Exams NoSocial History Na rrative Not on fileALLERGIES: Patient has no known allergies.Review of SystemsUnable to perform ROS: Acuity of conditionVitals: 10/29/19 1036BP: (!) 150/104Pulse: 96Resp: 15Temp: 98.3 F (36.8 C)SpO2: 96%Weight : 136.1 kg (300 lb)Height: 5' 7" (1.702 m)10:36 AM Pulse Oximetry reading is 96 % on room air, which indic atesnormal oxygenation per Cristobal Ernandez MD.Physical ExamVitals signs and nursing note reviewed.Constitu tional: General: He is awake. He is not in acute distress. Appearance: He is well-developed. Comm ents: Alert and oriented x2, not to date.HENT: Head: Normocephalic and atraumatic.Eyes: Extraocular Movem ents: Extraocular movements intact. Pupils: Pupils are equal, round, and reactive to light.Neck: Mus culoskeletal: Normal range of motion and neck supple. No musculartenderness.Cardiovascular: Rat e and Rhythm: Normal rate and regular rhythm. Heart sounds: Normal heart sounds. No murmur. No friction rub . [place]og[place]op.Pulmonary: Effort: Pulmonary effort is normal. No respiratory distress. Breath sounds: N ormal breath sounds. No wheezing or rales.Abdominal: General: Bowel sounds are normal. There is no dis tension. Palpations: Abdomen is soft. Tenderness: There is no abdominal tenderness. There is no guardi ng orrebound.Musculoskeletal: Normal range of motion. General: No swelling.Skin: General: Skin is warm a nd dry. Findings: No rash.Neurological: Mental Status: He is alert. Comments: moves all extremities .Psychiatric: Mood and Affect: Mood normal. Behavior: Behavior normal.MDMNumber of Diagnoses or Managem ent OptionsAmount and/or Complexity of Data ReviewedClinical lab tests: ordered and reviewedTests in the radiology section of CPT : ordered and reviewedDecide to obtain previous medical records or to obtain hi story fromsomeone other than the patient: yesObtain history from someone other than the patient: yesRevie w and summarize past medical records: yesIndependent visualization of images, tracings, or specimens: yesPr Awais Ricks Stephen, MD, reviewed the patient's past history, allergies andhome medications as documen hyun in the nursing chart.Labs:Recent Results (from the past 12 hour(s))EKG, 12 LEAD, INITIAL Collection Time: 10/29/19 10:31 AMResult Value Ref Range Ventricular Rate 101 BPM Atrial Rate 101 BPM P-R Interval 218 ms QRS Duration 119 ms Q-T Interval 344 ms QTC Calculation (Bezet) 446 ms Calculated P Parkman 53 degrees Calc ulated R Park[place] 68 degrees Calculated T Parkman 0 degrees Diagnosis Sinus tachycardiaProlonged GA intervalNo nspecific intraventricular conduction delayCBC WITH AUTOMATED DIFF Collection Time: 10/29/19 10:45 AMResult Value Ref Range WBC 8.1 4.8 - 10.6 K/uL RBC 5.52 4.70 - 6.00 M/uL HGB 16.7 14.0 - 18.0 g/dL HCT 51.8 42.0 - 52.0 % MCV 93.8 81.0 - 94.0 FL MCH 30.3 27.0 - 35.0 PG MCHC 32.2 30.7 - 37.3 g/dL RDW 13.2 11.5 - 14.0 % PLATELET 193 130 - 400 K/uL MPV 8.6 (L) 9.2 - 11.8 FL NRBC 0.0 0 PER 100 WBC ABSOLUTE NRBC 0.00 0.0 - 0.01 K/ uL NEUTROPHILS 79 (H) 48.0 - 72.0 % LYMPHOCYTES 10 (L) 18.0 - 40.0 % MONOCYTES 8 2.0 - 12.0 % EOSINOPHILS 1 0 .0 - 7.0 % BASOPHILS 0 0.0 - 3.0 % IMMATURE GRANULOCYTES 1 (H) 0 - 0.5 % ABS. NEUTROPHILS 6.4 2.3 - 7.6 K/U L ABS. LYMPHOCYTES 0.8 (L) 0.9 - 4.2 K/UL ABS. MONOCYTES 0.7 0.1 - 1.7 K/UL ABS. EOSINOPHILS 0.1 0.0 - 1.0 K/UL ABS. BASOPHILS 0.0 0.0 - 0.4 K/UL ABS. IMM. GRANS. 0.1 0.0 - 0.17 K/UL DF AUTOMATEDMETABOLIC PANEL, C OMPREHENSIVE Collection Time: 10/29/19 10:45 AMResult Value Ref Range Sodium 136 136 - 145 mmol/L Potass ium 4.4 3.5 - 5.1 mmol/L Chloride 106 98 - 107 mmol/L CO2 22 21 - 32 mmol/L Anion gap 12 10 - 20 mmol/L Gluco se 108 (H) 74 - 106 mg/dL BUN 16 7 - 18 mg/dL Creatinine 1.05 0.70 - 1.30 mg/dL GFR est AA >60 >60 ml/min/1.7 3m2 GFR est non-AA >60 >60 ml/min/1.73m2 Calcium 8.8 8.5 - 10.1 mg/dL Bilirubin, total 0.7 0.2 - 1.0 mg/ dL ALT (SGPT) 30 13 - 61 U/L AST (SGOT) 27 15 - 37 U/L Alk. phosphatase 139 (H) 45 - 117 U/L Protein , total 7.6 6.4 - 8.2 g/dL Albumin 3.9 3.5 - 4.7 g/dL Globulin 3.7 1.7 - 4.7 g/dL A-G Ratio 1.0 0.7 - 2.8PR OTHROMBIN TIME + INR Collection Time: 10/29/19 10:45 AMResult Value Ref Range Prothrombin time 10.3 9.4 - 11 .1 sec INR 1.0 0.8 - 1.2PTT Collection Time: 10/29/19 10:45 AMResult Value Ref Range aPTT 22.2 21.0 - 28.0 SE CLITHIUM Collection Time: 10/29/19 10:45 AMResult Value Ref Range [place] level <0.20 (L) 0.6 - 1.2 MMOL/L GLUCOSE, POC Collection Time: 10/29/19 11:26 AMResult Value Ref Range Glucose, bedside 102 65 - 110 MG/D LEKG: Sinus tachycardia at a rate of [address] or T wave changes.Interpreted by Cristobal Ernandez MD Radiology:CXR RESULTS:CXR Results (Last 48 hours) 10/29/19 1209 XR CHEST PORT Final result Impression: IMP RESSION:.No acute pulmonary process. Prominent interstitial markings are felt toreflectvascular cro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 Repeat PA and lateralviews thechest are advised if there is clinical concern for pneumonia or congestivefailure. Narrative: XR CHEST PORTCLINICAL INDICATION PROVIDED:. "ams."TECHNIQUE.: 1 views, chest.COMPARISON:. 08/16/2019.FINDINGS:.The patient has taken a shallow inspiration on the prese nt exam. Increasedinterstitial markings in both lungs may reflect vascular crowding in thesettingof low minal ng volumes. There is no lobar consolidation or large effusion.There isno pneumothorax.CT Results (Last 48 h ours) 10/29/[address] HEAD WO CONT Final result Impression: IMPRESSION: No acute intracranial pathol ogy seen. Narrative: CT HEAD WO CONTClinical data: amsPriors: 03/13/2015.Technique: Multiple axial imag es were obtained from the skullbase to thevertexwithout administration of intravenous contrast. Sagittal and coronalreconstruction was performed. Utilizing manager talent management algorithm theexaminationwas performed to optimize imaging quality by utilizing the lowest possibleradiation dose.Findings: There i s no evidence of intracranial hemorrhage, masses, acutecortical infarction, or midline shift. There are no extra-axial fluidcollections. There is no evidence of hydrocephalus.The bony calvarium shows n o evidence of fracture or destructive bonyprocess.Radiology interpretation reviewed by Cristobal Ernandez MD<EMERGENCY DEPARTMENT CASE SUMMARY>ED Course:49 y.o. male presented to the ED with lethargy on num erous psychiatricmedications. Will get labs, lithium level, EKG, CXR, and head CT. Give IVfluids.Labs and radiology results reviewed.11:50 AM: Data unremarkable. Patient is somewhat more alert, I suspectthis may b e due to his psychiatric medications. Will call PMD to admit.1:05 PM: Case presentation and findings discu ssed with Dr. Canas (PMD) whoagreed to admit the patient. Patient was reassessed prior to disposition.Discusse d results, diagnosis and treatment plan. Patient's questions wereanswered. Patient agrees with plan t o admit.COVID-19 suspected. Droplet precautions were taken.The patient had a surgical mask on upon ente ring the room: yesProvider PPE donned, including:Surgical mask: yesN95 mask: yesEye Protection: yesGlove s: yesGown: yesPatient was seen during Covid-19 pandemic which may have affected standardof care.Final Impr ession/Diagnosis:Encounter Diagnoses ICD-10-CM ICD-9-CM1. Altered mental status, unspecified altered menta l status type R41.11999.97Patient condition at time of disposition: StableI have reviewed the following home medications:Prior to Admission medicationsMedication Sig Start Date End Date Taking? Authorizing ProviderVra ylar 3 mg capsule 09/03/19 Provider, Historicalamitriptyline (ELAVIL) 150 mg tablet TAKE 1 TABLET ORA LLY NIGHTLY DOSECHANGED 08/20/19 Provider, Historicallithium carbonate 150 mg capsule Take 300 mg by mouth three (3) timesdaily. Suzette, MD PaulvalACYclovir (VALTREX) 1 gram tablet 07/17/18 Provider, Histo ricalclonazePAM (KLONOPIN) 2 mg tablet Take 1 mg by mouth daily. Suzette,Ailyn Miller Stephen, MD I, Gayle Abdi, am serving as a scribe to document servicespersonally performed by Cristobal Ernandez MD based on my observation and theprovider's statements to me.I, Cristobal Ernandez MD, attest that the person(s) noted annika mackey, acting as myscribe(s) noted above, has observed my performance of the services and hasdocumented them in a ccordance with my direction. I have personallyreviewed the above information and have ordered and reviewe d thediagnostic studies, unless otherwise noted.+ED Orders [id number] CBC WITH AUTOMATED DIFF [# [id number]] Priority: STAT Class: ER Collect Standing Order Information Remaining Occurrences:0 /1 Interval:ONE TIME Last released:10/29/2019 Released orders: SunOctober 29, 2019 11:02 AM by: CRISTOBAL ERNANDEZ [id number] METABOLIC PANEL, COMPREHENSIVE [#[id number]] Bridgette ority: STAT Class: ER Collect Standing Order Information Remaining Occurrences:0/1 Inter haile:ONE TIME Last released:10/29/2019 Released orders: SunOctober 29, 2019 11:02 AM by: CRISTOBAL WADE [id number] PROTHROMBIN TIME + INR [#[id number]] Priority: STAT Class: E R Collect Standing Order Information Remaining Occurrences:0/1 Interval:ONE TI ME Last released:10/29/2019 Released orders: SunOctober 29, 2019 11:02 AM by: BRIE ERNANDEZ [id number] PTT [#[id number]] Priority: STAT Class: ER Collect Speci men Source: Blood Standing Order Information Remaining Occurrences:0/1 Interval:ONE TI ME Last released:10/29/2019 Released orders: SunOctober 29, 2019 11:02 AM by: BRIE ERNANDEZ [id number] URINALYSIS W/ RFLX MICROSCOPIC [#[id number]] Priority: STAT Class: ER Collect Sta nding Order Information Remaining Occurrences:0/1 Interval:ONE TIME Last released:0 10/29/2019 Released orders: SunOctober 29, 2019 11:02 AM by: CRISTOBAL ERNANDEZ [id number] LITHIUM [#[id number]] Priority: STAT Class: ER Collect Standing Order Information Remaining Occurrences:0/1 Interval:ONE TIME Last released:10/29/2019 Released orders : SunOctober 29, 2019 11:02 AM by: CRISTOBAL ERNANDEZ [id number] CBC WITH AUTOMATED DIFF [# [id number]] Priority: STAT Class: ER Collect Specimen Source: Whole Blood Specimen Collected: 020 10:45 AM Resulting Agency: [facility] Test ID: [id number] Released on: 0 11:02 AM [id number] METABOLIC PANEL, COMPREHENSIVE [#[id number]] Priority: STAT Class: E R Collect Specimen Source: Plasma Specimen Collected: 10/29/2019 10:45 AM Resulting Agency: [facility] Test ID: MPL Released on: 10/29/2019 11:02 AM [id number] PROTHROMBIN TIME + IN R [#[id number]] Priority: STAT Class: ER Collect Specimen Source: Plasma Specimen Collec hyun: 10/29/2019 10:45 AM Resulting Agency: [facility] Test ID: APTHR Released o n: 10/29/2019 11:02 AM [id number] PTT [#[id number]] Priority: STAT Class: ER Collect Specimen Source: Plasma Specimen Collected: 10/29/2019 10:45 AM Resulting Agency: [facility] Test ID: APTT Released on: 10/29/2019 11:02 AM [id number] URINALYSIS W/ RFLX NC CROSCOPIC [#[id number]] Priority: STAT Class: ER Collect Resulting Agency: [facility] Test ID: UA Released on: 10/29/2019 11:02 AM [id number] LITHIUM [#[id number]] Priority: STAT Class: ER Collect Specimen Source: Serum Specimen Collected: 10/28 10:45 AM Resulting Agency: [facility] Test ID: LI Released on: 10/29/2019 11:02 AM [id number] CBC WITH AUTOMATED DIFF [#[id number]] Priority: STAT Class: E R Collect Standing Order Information Remaining Occurrences:1 Interval:TOMORR OW AM [id number] METABOLIC PANEL, BASIC [#[id number]] Priority: STAT Class: ER Collect St anding Order Information Remaining Occurrences:1 Interval:TOMORROW AM [id number] CT HEAD W O CONT [#[id number]] Priority: Routine Class: Hospital Performed Standing Or mariano Information Remaining Occurrences:0/1 Interval:ONE TIME Last released:10/29/2019 Released orders: SunOctober 29, 2019 11:02 AM by: CRISTOBAL ERNANDEZ Reason for Exam -> ams IMG 2590 XR CHEST PORT [#[id number]] Priority: STAT Class: Hospital Performe d Standing Order Information Remaining Occurrences:0/1 Interval:ONE TIME Last release d:10/29/2019 Released orders: SunOctober 29, 2019 11:02 AM by: AWAIS, CRISTOBAL Reason for Exam -> ams [id number] CT HEAD WO CONT [#[id number]] Priority: STAT Class: Hospital Perfo rmed Specimen Collected: 10/29/2019 11:54 AM Resulting Agency: [facility] Test ID: [id number] [place] son for Exam -> ams Released on: 10/29/2019 11:02 AM [id number] XR CHEST PORT [#[id number]] Priority: STAT Class: Hospital Performed Specimen Collected: 10/29/2019 12:16 PM Resultin g Agency: [facility] Test ID: [id number] Reason for Exam -> ams Released on: 10/29/2019 11:02 AM [id number] EKG, 12 LEAD, INITIAL [#[id number]] Priority: STAT Class: Hospital Performe d Standing Order Information Remaining Occurrences:0/1 Interval:ONE TIME Last release d:10/29/2019 Released orders: SunOctober 29, 2019 11:02 AM by: CRISTOBAL ERNANDEZ Reason for Exam : -> chest pain [id number] EKG, 12 LEAD, INITIAL [#[id number]] Priority: STAT Class: H ospital Performed Resulting Agency: [facility] Test ID: [id number] Reason for Exam: -> chest pain Releas ed on: 10/29/2019 11:02 AM [id number] POC GLUCOSE [#[id number]] Priority: STAT Cl ass: Hospital Performed Standing Order Information Remaining Occurrences:0/1 Interval:ONE TI ME Last released:10/29/2019 Released orders: SunOctober 29, 2019 11:02 AM by: BRIE ERNANDEZ [id number] POC GLUCOSE [#[id number]] Priority: STAT Class: Hospital Performe d Released on: 10/29/2019 11:02 AM [id number] VITAL SIGNS PER UNIT ROUTINE [#[id number]] Priorit y: STAT Class: Hospital Performed Standing Order Information Remaining Occurrences:0/1 Inte rval:CONTINUOUS Last released:10/29/2019 Released orders: SunOctober 29, 2019 2:54 PM by: RITIKA CANAS Comment:More frequently if Indicated. [id number] BEDREST, COMPLETE [#[id number]] Priority: STAT Class: Hospital Performed Standing Order Information Remainin g Occurrences:0/1 Interval:CONTINUOUS Last released:10/29/2019 Released orders : SunOctober 29, 2019 2:54 PM by: RITIKA [id number] NOTIFY PROVIDER: VITAL SIGNS CHANGES [# [id number]] Priority: STAT Class: Hospital Performed Standing Order Information Remaining Occurre nces:0/1 Interval:CONTINUOUS Last released:10/29/2019 Released orders : SunOctober 29, 2019 2:54 PM by: RITIKA CANAS Temp -> Greater than 101 F HR -> Greater th an 120 Beats Per Minute or Less than 60 Beats Per Minute RR -> Greater than 30 per minute or Less than 8 per minute SBP -> Greater than 180 mm Hg or Less than 90 mm Hg O2 Sat -> Less than 90% UO -> Less than 120 ml in 4 hours [id number] APPLY/MAINTAIN SEQUENTIAL COMPRESSIO* [#[id number]] Priority: ST AT Class: Hospital Performed Standing Order Information Remaining Occurrences:0/1 Inter haile:CONTINUOUS Last released:10/29/2019 Released orders: SunOctober 29, 2019 2:54 PM by: RITIKA CANAS [id number] VITAL SIGNS PER UNIT ROUTINE [#[id number]] Priority: STAT Class: H ospital Performed Comment:More frequently if Indicated. Released on: 10/29/2019 2:54 PM [id number] BEDREST, COMPLETE [#[id number]] Priority: STAT Class: Hospital Performed Relea sed on: 10/29/2019 2:54 PM [id number] NOTIFY PROVIDER: VITAL SIGNS CHANGES [#[id number]] Priority: STAT Class: Hospital Performed Temp -> Greater than 101 F HR -> Greater than 120 Beats Per Minute or Less than 60 Beats Per Minute RR -> Greater than 30 per minute or Less than 8 per minute SBP -> Gr eater than 180 mm Hg or Less than 90 mm Hg O2 Sat -> Less than 90% UO -> Less than 120 ml in 4 carmen rs Released on: 10/29/2019 2:54 PM [id number] APPLY/MAINTAIN SEQUENTIAL COMPRESSIO* [#[id number]] P riority: STAT Class: Hospital Performed Released on: 10/29/2019 2:54 PM SODIUM CHLORIDE 0.9 % IJ SYRG [#[id number]] Priority: STAT Class: Normal SODIUM CHLORIDE 0.9 % IJ SYRG [#[id number]] Priority: STAT Class: Normal ACETAMINOPHEN 325 MG TABLET [# [id number]] Priority: STAT Class: Normal ENOXAPARIN 40 MG/0.4 ML SUB-Q SYRINGE [#[id number]] Priority: STAT Class: Normal SODIUM CHLORIDE 0.9 % IV [#[id number]] Priority: STAT Class: Normal [id number] GLUCOSE, POC [#[id number]] Priority: Routine Class : ER Collect Resulting Agency: [facility] Test ID: BGG Standing Order Informati on Remaining Occurrences:0/1 Released orders: SunOctober 29, 2019 11:26 AM by: Automatic B atch Process [id number] GLUCOSE, POC [#[id number]] Priority: Routine Class : ER Collect Specimen Source: Whole Blood Specimen Collected: 10/29/2019 11:26 AM Resulting Agency: [facility] Test ID: BGG Released on: 10/29/2019 11:26 AM [id number] IP CONSULT TO PRIMARY CARE PROVIDER [#[id number]] Priority: STAT Class: Hospital Performed Standing Order Inf ormation Remaining Occurrences:0/1 Interval:ONE TIME Last released:10/29/2019 Relea sed orders: SunOctober 29, 2019 12:59 PM by: CRISTOBAL ERNANDEZ Reason for Consult: -> admit Did you call or speak to the consulting provider? -> No Consult To -> dr canas [id number] IP CONSULT TO PRIMAR Y CARE PROVIDER [#[id number]] Priority: STAT Class: Hospital Performed Reason for Consult: -> ad rei Did you call or speak to the consulting provider? -> No Consult To -> dr canas Released on: 12:59 PM CON53 IP CONSULT TO PSYCHIATRY [#[id number]] Priority: STAT Class: H ospital Performed Standing Order Information Remaining Occurrences:0/1 Interval:ONE TI ME Last released:10/29/2019 Released orders: SunOctober 29, 2019 2:54 PM by: RITIKA CANAS Reason for Consult: -> 49 yo male with severe bipolar disease, admitted with s lurred speech, severe weakness Did you call or speak to the consulting provider? -> No Consult To -> Dr Aguirre Schedule When? -> TODAY CON53 IP CONSULT TO PSYCHIATRY [#[id number]] Priority: STAT Class: Hospital Performed Reason for Consult: -> 49 yo male with severe bipolar diseas e, admitted with slurred speech, severe weakness Did you call or speak to t he consulting provider? -> No Consult To -> Dr Aguirre Schedule When? -> TODAY Released on: 10/29/2019 2:54 PM [id number] INITIAL PHYSICIAN ORDER: INPATIENT [#[id number]] Priority: Routine Class : ADT Pend Transfer Standing Order Information Remaining Occurrences:0 Interval:ONE TI ME Last released:10/29/2019 Released orders: SunOctober 29, 2019 2:43 PM by: RITIKA CANAS Status: -> INPATIENT Inpatient Hospitalization Certified Necessary for the Following Reasons -> 3- . P- a- t- i- e- n- t r- e- c- e- i- v- i- n- g t- r- e- a- t- m- e- n- t t- h- a- t c- a- n o- n- l- y b- e p- r- o- v- i- d- e- d i- n a- n i- n- p- a- t- i- e- n- t s- e- t- t- i- n- g (- f- u - r- t- h- e- r c- l- a- r- i- f- i- c- a- t - i- o- n i- n H- &- P d- o- c- u- m- e- n- t- a- t- i- o- n- ) Admitting Diagnosis - > Bipolar disorder with severe depression (HCC) Admitting P hysician -> RITIKA CANAS Attending Physician -> RITIKA CANAS Estimated Length of Stay -> 3-4 [facility] Discharge Plan: -> Home with Office Follow-up [id number] INITIAL PHYSICIAN ORDER: INPATIENT [# [id number]] Priority: Routine Class: ADT Pend Transfer Status: -> INPATIENT Inpatient Hosp italization Certified Necessary for the Following Reasons -> 3- . P- a- t- i- e- n- t r- e- c- e- i- v- i- n - g t- r- e- a- t- m- e- n- t t- h- a- t c- a- n o- n- l- y b- e p- r- o- v- i- d- e- d i- n a- n i- n- p- a- t- i- e- n- t s- e- t- t- i- n- g (- f- u- r- t - h- e- r c- l- a- r- i- f- i- c- a- t- i- o - n i- n H- &- P d- o- c- u- m- e- n- t- a- t- i- o- n- ) Admitting Diagnosis -> Bipolar d isorder with severe depression (HCC) Admitting Physician -> RITIKA CANAS Attending Physician - > RITIKA CANAS Estimated Length of Stay -> 3-4 Midnights Discharge Plan: -> Home with Office Foll ow-up Released on: 10/29/2019 2:43 PM [id number] INITIAL PHYSICIAN ORDER: INPATIENT [#[id number]] Priority: Routine Class: ADT Pend Transfer Standing Order Information Remaining Occurrences:0 / Interval:ONE TIME Last released:10/29/2019 Released orders: SunOctober 29, 2019 2:54 PM by: RITIKA CANAS Status: -> INPATIENT Inpatient Hospitalization Certified Xiomara gomes for the Following Reasons -> 3- . P- a- t- i- e- n- t r- e- c- e- i- v- i- n- g t- r- e- a- t- m- e- n- t t- h- a- t c- a- n o- n- l- y b- e p- r- o- v- i- d- e- d i- n a- n i- n- p- a- t- i- e- n- t s- e- t- t- i- n- g (- f- u- r- t- h- e- r c- l- a- r- i- f- i- c- a- t- i- o- n i- n H- &- P d- o- c- u- m- e- n- t- a- t- i- o- n- ) Admitting Diagnosis -> Bipolar disorder with sever e depression (HCC) Admitting Physician -> RITIKA CANAS Attending Physician -> RITIKA CANAS Estimated Length of Stay -> 3-4 Midnights Discharge Plan: -> Other (Specify) [id number] INITIAL PHYSIC JOSE ORDER: INPATIENT [#[id number]] Priority: Routine Class: ADT Pend Transfer Status: -> INPATI ENT Inpatient Hospitalization Certified Necessary for the Following Reasons -> 3- . P - a- t- i- e- n- t r- e- c- e- i- v- i- n- g t- r- e- a- t- m- e- n- t t- h- a- t c- a- n o- n- l- y b- e p- r- o- v- i- d- e- d i- n a- n i- n- p- a- t- i- e- n- t s- e- t- t- i- n- g (- f- u- r- t- h - e- r c- l- a- r- i- f- i- c- a- t- i- o- n i- n H- &- P d- o- c- u- m- e- n- t- a- t- i- o- n- ) Adm itting Diagnosis -> Bipolar disorder with severe depression (HCC) Admitting Physician -> RITIKA CANAS Attending Physician -> RITIKA CANAS Estimated Length of Stay -> 3-4 Midnights Discharge Gerson n: -> Other (Specify) Released on: 10/29/2019 2:54 PM IVT3 INSERT PERIPHERAL IV [# [id number]] Priority: STAT Class: Hospital Performed Standing Order Information Remaining Occurre nces:0/1 Interval:ONE TIME Last released:10/29/2019 Released orders: SunOctober 28 020 2:54 PM by: RITIKA CANAS IVT3 INSERT PERIPHERAL IV [#[id number]] Priority: ST AT Class: Hospital Performed Released on: 10/29/2019 2:54 PM CON75 IP CONSULT TO PHYSICAL THERAPY [#[id number]] Priority: STAT Class: Hospital Performed Standing Order Information Remainin g Occurrences:14/15 Interval:DAILY Last released:10/29/2019 Released orders : SunOctober 29, 2019 2:54 PM by: RITIKA CANAS CON75 IP CONSULT TO PHYSICAL THERAPY [#[id number]] Priority: STAT Class: Hospital Performed Released on: 10/29/2019 2:54 PM COD2 FULL CODE [#[id number]] Priority: STAT Class: Hospital Performed Standing Order Inf ormation Remaining Occurrences:0/1 Interval:CONTINUOUS Last released:10/29/2019 Rel eased orders: SunOctober 29, 2019 2:54 PM by: RITIKA CANAS COD2 FULL CODE [#[id number]] Priority: STAT Class: Hospital Performed Released on: 10/29/2019 2:54 PM DIET10 4 DIET FULL LIQUID [#[id number]] Priority: STAT Class: Hospital Performed Stand ing Order Information Remaining Occurrences:0/1 Interval:DIET EFFECTIVE NOW Last released:10/29/2019 Released orders: SunOctober 29, 2019 2:54 PM by: RITIKA CANAS Comment:A dvance as tolerated to regular diet [id number] DIET FULL LIQUID [#[id number]] Priority: STAT Class: Hospital Performed Comment:Advance as tolerated to regular diet Released on: 10/29/2019 2:54 Maxwell Corona MR#: [id number] * Rm: 416-02Ht: 5' 7" Wt: 3 00 lb Code: Full Code Iso:Diagnosis:Bipolar disorder with severe depression (HCC) [F31.4]Allergies : No Known Allergies -------- Current as of: 10/29/19 1556 ---aspirin (ASPIRIN) tablet 325 mg #[id number] Admin Amount: 1 Tab (1 x 325 mg Tab) Ordered Dose: 325 mg Route: Oral Freq: ONCE Start Date: 12/24/13 No administration times (back 96 hours, ahead 96 hours). ------diphenhydrAMINE (BENADRYL) capsule 50 mg #[id number] Admin Amount: 1 Cap (1 x 50 mg Cap) Ordered Dose: 50 mg [place]: Oral Freq: NOW Start Date: 12/24/13 No administration times (back 96 hours, ahe ad 96 hours). ------diazepam (VALIUM) tablet 5 mg #[id number] Admin Amount: 1 Tab (1 x 5 mg Tab) Ordered Dose: 5 mg Route: Ora l Freq: ONCE Start Date: 12/24/13 No administration times (back 96 hours, ahe ad 96 hours). ------lidocaine (XYLOCAINE) 10 mg/mL (1 %) injection 1-30 mL #[id number] Admin Amount: 1-30 mL Ordered Dose: 1-30 mL Route: IntraDERMal Freq: ONC E Start Date: 12/24/13 No administration times (back 96 hours, ahead 96 hours). ------heparin (PF) 2 units/ml in NS infusion 2,000 Units #[id number] Admin Amount: 1,000 mL = 2,000 Units of 2 Units/mL Ordered Dose: 1,000 mL Route: Irrigation Freq: ONCE Start Date: 12/24/13 No administration times (b ack 96 hours, ahead 96 hours). ------heparinized saline 2 units/mL infusion 1,000 Units #[id number] Admin Amount: 500 mL = 1,000 Units of 2 Units/mL Ordered Dose: 500 mL R oute: IntraarTERial Freq: ONCE Start Date: 12/24/13 No administration times (back 96 hours, ahead 96 hours). ------0.9% sodium chloride infusion #[id number] Ordered Dose: 75 mL/hr Route: IntraVENous Freq: CONTINUOUS Start Date: 12/24/13 Rate: 75 mL/hr Duration: No administration times (back 96 hours, ahead 96 hours). ------ioversol (OPTIRAY) 320 mg iodine/mL contrast injection 1-100 mL #[id number] Admin Amount: 1-100 mL Ordered Dose: 1-100 mL Route: IntraVENous Freq: RAD ONCE Start Date: 12/24/13 No administration times (back 96 hours, ahead 96 hours).aMxwell Bray MR#: [id number] * Rm: 416-02Ht: 5' 7" Wt: 300 lb Code: Full Code Iso:Diagnosis:Bipolar disorder with severe depression (HCC) [F31.4]Allergies: No Kn own Allergies -------- Current as of: 10/29/19 1556 ---gadobutrol (GADAVIST) contrast solution 1-10 mL #[id number] Admin Amount: 1-10 mL Ordered Dose: 1-10 mL Route: IntraVENo us Freq: RAD ONCE Start Date: 01/13/14 No administration times (back 96 hours, ahe ad 96 hours). ------sodium chloride (NS) flush 5-10 mL #[id number] Admin Amount: 5-10 mL Ordered Dose: 5-10 mL Route: IntraVENous Freq: RA D ONCE Start Date: 01/13/14 No administration times (back 96 hours, ahead 96 hours). ------sodium chloride (NS) 0.9 % flush #[id number] Ordered Dose: Route: Freq: Start D ate: 01/13/14 No administration times (back 96 hours, ahead 96 hours). ------morphine injection 2 mg #[id number] Admin Amount: 1 mL = 2 mg of 2 mg/mL Ordered Dose: 2 mg Route: Int raVENous Freq: NOW Start Date: 03/13/15 No administration times (back 96 hours, ahe ad 96 hours). ------influenza vaccine (4 yr+)(PF) (FLUCELVAX QUAD) inj ection 0.5*#[id number] Admin Amount: 0.5 mL Ordered Dose: 0.5 mL Route: IntraMUSCular Freq : PRIOR TO DISCHARGE Start Date: 03/30/16 No administration times (back 96 hours, ahead 96 hours). ------oxyCODONE-acetaminophe n (PERCOCET) 5-325 mg per tablet 1 Tab #[id number] Admin Amount: 1 Tab Ordered Dose: 1 Tab Route: Oral Freq: NOW Start Date: 09/07/17 No administration times (back 96 hours, ahead 96 hours). ------barium sulfate (READICAT) 2.1 % (w/v), 2.0 % (w /w) oral suspension 9*#[id number] Admin Amount: 900 mL Ordered Dose: 900 mL Route: Ora l Freq: RAD ONCE Start Date: 10/15/17 No administration times (back 96 hours, ahe ad 96 hours). ------iopamidol (ISOVUE 300) 61 % contrast injection 100 mL #[id number] Admin Amount: 100 mL Ordered Dose: 100 mL Route: IntraVENous Freq: RAD O NCE Start Date: 10/15/17 No administration times (back 96 hours, ahead 96 hours).Maxwell Bray MR#: [id number] * Rm: 416-02Ht: 5' 7" Wt: 300 lb Cod e: Full Code Iso:Diagnosis:Bipolar disorder with severe depression (HCC) [F31.4]Allergies: No Kn own Allergies -------- Current as of: 10/29/19 1556 ---risperiDONE (RisperDAL m-tabs) disintegrating tablet 1 mg #[id number] Admin Amount: 1 Tab (1 x 1 mg Tab) Ordered Dose: 1 mg [place]: Oral Freq: ONCE Start Date: 12/24/17 No administration times (back 96 hours, e ad 96 hours). ------ALPRAZolam (XANAX) tablet 2 mg #[id number] Admin Amount: 4 Tab (4 x 0.5 mg Tab) Ordered Dose: 2 mg Route: Ora l Freq: NOW Start Date: 12/24/17 No administration times (back 96 hours, e ad 96 hours). ------lamoTRIgine (LaMICtal) tablet 100 mg #[id number] Admin Amount: 1 Tab (1 x 100 mg Tab) Ordered Dose: 100 mg Route: Ora l Freq: ONCE Start Date: 12/24/17 No administration times (back 96 hours, e ad 96 hours). ------OLANZapine (ZyPREXA zydis) disintegrating tablet 5 mg #[id number] Admin Amount: 1 Tab (1 x 5 mg Tab) Ordered Dose: 5 mg Route: Ora l Freq: ONCE Start Date: 12/25/17 No administration times (back 96 hours, e ad 96 hours). ------LORazepam (ATIVAN) tablet 2 mg #[id number] Admin Amount: 4 Tab (4 x 0.5 mg Tab) Ordered Dose: 2 mg Route: Ora l Freq: NOW Start Date: 12/25/17 No administration times (back 96 hours, e ad 96 hours). ------LORazepam (ATIVAN) injection 1 mg #[id number] Admin Amount: 0.5 mL = 1 mg of 2 mg/mL Ordered Dose: 1 mg [place]: IntraVENous Freq: NOW Start Date: 12/25/17 No administration times (back 96 hours, ahead 96 hours). ------barium sulfate (EZ PAQUE) 96 % (w/w) contrast suspension 17 6 g #[id number] Admin Amount: 176 g Ordered Dose: 176 g Route: Oral Freq: RAD ONCE Start Date: 08/02/18 No administration times (back 96 hours, ahead 96 hours). ------barium sulfate (EZ PAQUE) 96 % (w/w) contrast suspension 17 6 g #[id number] Admin Amount: 176 g Ordered Dose: 176 g Route: Oral Freq: RAD ONCE Start Date: 08/02/18 No administration times (back 96 hours, ahead 96 hours).Maxwell Bray MR#: [id number] * Rm: 416-02Ht: 5' 7" Wt: 300 lb Code: Full Co de Iso:Diagnosis:Bipolar disorder with severe depression ([facility]) [F31.4]Allergies: No Known Allergies -------- Current as of: 10/29/19 1556 ---aspirin chewable tablet 162 mg #[id number] Admin Amount: 2 Tab (2 x 81 mg Tab) Ordered Dose: 162 mg Route: Ora l Freq: NOW Start Date: 08/10/19 No administration times (back 96 hours, ahe ad 96 hours). ------0.9% sodium chloride infusion 1,000 mL #[id number] Admin Amount: 1,000 mL Ordered Dose: 1,000 mL Route: IntraVENous Freq: O NCE Start Date: 08/16/19 Rate: 1,000 mL/hr Duration: No administratio n times (back 96 hours, ahead 96 hours). ------methylPREDNISolone (PF) (Solu-MEDROL) injection 125 mg #[id number] Admin Amount: 2 mL = 125 mg of 125 mg/2 mL Ordered Dose: 125 mg [place]: IntraVENous Freq: NOW Start Date: 08/16/19 No administration times (back 9 6 hours, ahead 96 hours). ------aspirin chewable tablet 162 mg #[id number] Admin Amount: 2 Tab (2 x 81 mg Tab) Ordered Dose: 162 mg Route: Ora l Freq: NOW Start Date: 08/16/19 No administration times (back 96 hours, e ad 96 hours). ------sodium chloride (NS) flush 5-40 mL #[id number] Admin Amount: 5-40 mL Ordered Dose: 5-40 mL Route: IntraVENous Freq: EV AN 8 HOURS Start Date: 10/29/19 Administration times (back 96 hours, ahead 96 hours): : 1400 2200 10/30/19: 06 1400 219910/31/19: 599 1400 219911/01/19: 599 1400 219911/02/19: 599 1400 ---sodium chloride (NS) flush 5-40 mL #[id number] Admin Amount: 5-40 mL Ordered Dose: 5-40 mL Route: IntraVENous Freq: NEEDED Start Date: 10/29/19 No administration times (back 96 hours, ahead 96 hours). ------acetaminophen (TYLENOL) tablet 650 mg #[id number] Admin Amount: 2 Tab (2 x 325 mg Tab) Ordered Dose: 650 mg [place]: Oral Freq: EVERY 4 HOURS NEEDED Start Date: 10/29/19 No administration times (back 96 hours, ahe ad 96 hours).Maxwell Bray MR#: [id number] * Rm: 416-02Ht: 5' 7" Wt: 3 00 lb Code: Full Code Iso:Diagnosis:Bipolar disorder with severe depression (HCC) [F31.4]Allergies : No Known Allergies -------- Current as of: 10/29/19 1556 ---enoxaparin (LOVENOX) injection 40 mg #[id number] Admin Amount: 0.4 mL = 40 mg of 40 mg/0.4 mL Ordered Dose: 40 mg Route: SubCUTAneous Freq: EVERY 24 HOURS Start Date: 10/29/19 Administration times (back 96 hours, ahead 96 hours): 10/29/19: 145410/30/19: 145410/31/19: 145411/01/19: 145411/02/19 : 5 ---0.9% sodium chloride infusion #[id number] Ordered Dose: 100 mL/hr Route: IntraVENous Freq: CONTINUOUS Start Date: 10/29/19 Rate: 100 mL/hr Duration: Administration times (back 96 hours, ahead 96 hours): 10/29/19: 1455 ED Current OP MedicationsVraylar 3 mg ca psuleSig:Take 3 mg by mouth nightly.Dispense Amount:Start Date:09/03/2019End Date:Doc. Provider: Danilo Helmsamitriptyline (ELAVIL) 150 mg tabletSig:Take 150 mg by mouth nightly.Dispense Amount:Star t Date:08/20/2019End Date:Doc. Provider: Danilo Bustoslithium carbonate 150 mg capsuleSig:Take 300 mg by mouth two (2) times daily (with meals).Dispense Amount:Start Date:End Date:Doc. Provider: Paul Bradford MDclonazePAM (KLONOPIN) 2 mg tabletSig:Take 1 mg by mouth two (2) times daily as needed.Dispense Amount:St art Date:End Date:Doc. Provider: Paul Bradford MD ED Prescriptions None on FileFollow- up InformationNone Name Value Range Interpretation Code Description Data Melani rce(s) Supporting Document(s ) ID Date Data Source [id number] 10/29/2019 03:54:13 PM EDT [facility] History & PhysicalBrian Anam Bray is a [age] y.o. male who is admitted via the ED where he arrivedvia EMS with history of being on the floor of his bedroom unable to get up, andwith slurred speech. Studies perform ed since arrival in the ED include a CATscan of the head without contrast which is un remarkable, a chest x-ray which isunremarkable, complete blood count whi ch is unremarkable, normal comprehensivemetabolic panel, and serum lithium level of less than 0.2. Patient onevaluation is an unreliable historian with speech which is barely intelligible.Phone call to his Benjamin white indicates the patient has been taking hismedication including lithium amitript yline Vraylar, and Klonopin. relatesthe patient having spilled his amitriptyline which he normally takes at nightand may perhaps have taken an extra dose inadver tently. The patient psychiatryof record is a Dr. Mateo Méndez who by history is cur rently ill with COVID-19illnessPast Medical History:Diagnosis Date Other unknown an d unspecified cause of morbidity or mortality cardiac cath at [facility] approx 6-8 months ag o Other unknown and unspecified cause of morbidity or mortality concussions Othe r unknown and unspecified cause of morbidity or mortality "periodic disorientation" Other unknown and unspecified cause of morbidity or mortality anxiety Psychiat rina disorder anxiety, depressionPast Surgical History:Procedure Laterality Date ABDOM EN SURGERY PROC UNLISTED gastric bypass 2009 HX GASTRIC BYPASS roue-en-y HX ORTHOPAE DIC 1986 aarthroscopic knee surgery HX ORTHOPAEDIC 1990 broken footFamily Hist oryProblem Relation Age of Onset Diabetes Mother Heart Disease MotherSocial Histo rySocioeconomic History Marital status: Spouse name: Blanca Number of children: One son Years of education: Not on file Highest education level: Not on fi leSocial Needs Financial resource strain: Not very hard Food insecurity Worry: N ever true Inability: Never true Transportation needs Medical: No Non-m edical: NoTobacco Use Smoking status: Never Smoker Smokeless tobacco: Never UsedSub stance and Sexual Activity Alcohol use: No Frequency: Never Drinks per session: 1 or 2 Binge frequency: Never Drug use: No Sexual activity: Not Currently Partners : FemaleNorbertostdeanne Physical activity Days per week: 0 days Minutes per session: 0 min Stress: Very muchRelationships Social connections Talks on phone: Once a week Gets together: Once a week Attends shinto service: More than 4 times per year Active member of club or organization: No Attends meetings of clubs or organiz ations: Never Relationship status: MarriedOther Topics Concern Se rvice No Blood Transfusions No Caffeine Concern No Occupational Exposure No Ho bby Hazards No Sleep Concern Yes Stress Concern Yes Weight Concern Yes Special Diet No Back Care No Exercise No Bike Helmet No Seat Belt Yes Self-Exams NoP rior to Admission medicationsMedication Sig Start Date End Date Taking? Authorizing ProviderVraylar 3 mg capsule Take 3 mg by mouth nightly. 09/03/19 Yes Provider,His toricalamitriptyline (ELAVIL) 150 mg tablet Take 150 mg by mouth nightly. 08/20/19 Y esProvider, Historicallithium carbonate 150 mg capsule Take 300 mg by mouth two (2) times daily (withmeals). Yes Other, Phys, MDclonazePAM (KLONOPIN) 2 mg tablet Take 1 mg by mouth two (2) times daily asneeded. Other, Misti Miller Known AllergiesRevie w of Systems: Unreliable due to patient's current statusPhysical Exam:Physical Exa m:General: Alert, cooperative, no distress. Patient markedly obese lying flat Olga s tretcherHead: Normocephalic, without obvious abnormality, atraumatic. Mucosa moist.N roxie without bruits, thyroid is midline.Eyes: Conjunctivae/corneas clear. Pupils equal , round, reactive to light.Extraocular movements intact.Lungs: Resonant and c lear to auscultation bilaterally.Chest wall: No tenderness or deformity.Heart: Regul ar rate and rhythm, S1, S2 normal, no murmur, click, rub, orgallop.Abdomen: Soft, no n-tender. Bowel sounds normal. No masses. No organomegaly.Extremities: Extremities no rmal, atraumatic, no clubbing, cyanosis or edema.Calves are non-tender to palpation .Pulses: 2+ and symmetric all extremities.Skin: Skin color, texture, t urgor normal. No rashes or lesions.Lymph nodes: Cervical, supraclavicular, and ax illary nodes normal.Neurologic: CNII-XII intact. Normal strength, sensation, and reflexesthroughout.Labs Reviewed:Ct Head Wo ContResult Date: 10/29/2019CT HEAD WO CONT Clinical data: ams Priors: 03/13/2015. Technique: Multiple axialimages were obt ained from the skullbase to the vertex without administration ofintravenous con trast. Sagittal and coronal reconstruction was performed.Utilizing manager talent management alg orithm the examination was performed to optimizeimaging quality by utilizing the lowest possible radiation dose. Findings: Thereis no evidence of intracranial hemo rrhage, masses, acute cortical infarction, ormidline shift. There are no extra-axia l fluid collections. There is noevidenceof hydrocephalus. The bony calvarium shows no evidence of fracture ordestructive bony process.IMPRESSION: No acute intracrania l pathology seen.Xr Chest PortResult Date: 10/29/2019XR CHEST PORT CLINICAL INDICATIO N PROVIDED:. "ams." TECHNIQUE.: 1 views, chest.COMPARISON:. 08/16/2019. FINDINGS:. The patient has taken a shallow inspirationon the present exam. Increase d interstitial markings in both lungs may reflectvascular crowding in the setting of low lung volumes. There is no lobarconsolidation or large effusion. Th ere is no pneumothorax.IMPRESSION:. No acute pulmonary process. Prominent interstitia l markings arefelt to reflect vascular cro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 R epeat PA andlateral views the chest are advised if there is clinical concern for pneumoniaor congestive failure.Recent Results (from the past 24 hour(s))EKG, 1 2 LEAD, INITIAL Collection Time: 10/29/19 10:31 AMResult Value Ref Range Ventricul ar Rate 101 BPM Atrial Rate 101 BPM P-R Interval 218 ms QRS Duration 119 ms Q-T Interval 344 ms QTC Calculation (Bezet) 446 ms Calculated P Park[place] 53 degrees Calculat ed R Park[place] 68 degrees Calculated T Parkman 0 degrees Diagnosis Sinus tachycardiaProl onged GA intervalNonspecific intraventricular conduction delayCBC WITH AUTOMATED DIFF Collection Time: 10/29/19 10:45 AMResult Value Ref Range WBC 8.1 4.8 - 10.6 K/uL RBC 5.52 4.70 - 6.00 M/uL HGB 16.7 14.0 - 18.0 g/dL HCT 51.8 42.0 - 52.0 % MCV 93. 8 81.0 - 94.0 FL MCH 30.3 27.0 - 35.0 PG MCHC 32.2 30.7 - 37.3 g/dL RDW 13.2 11.5 - 14 .0 % PLATELET 193 130 - 400 K/uL MPV 8.6 (L) 9.2 - 11.8 FL NRBC 0.0 0 PER 100 WBC ABS OLUTE NRBC 0.00 0.0 - 0.01 K/uL NEUTROPHILS 79 (H) 48.0 - 72.0 % LYMPHOCYTES 10 (L) 18.0 - 40.0 % MONOCYTES 8 2.0 - 12.0 % EOSINOPHILS 1 0.0 - 7.0 % BASOPHILS 0 0. 0 - 3.0 % IMMATURE GRANULOCYTES 1 (H) 0 - 0.5 % ABS. NEUTROPHILS 6.4 2.3 - 7.6 K/UL AB S. LYMPHOCYTES 0.8 (L) 0.9 - 4.2 K/UL ABS. MONOCYTES 0.7 0.1 - 1.7 K/UL ABS. EOSINO PHILS 0.1 0.0 - 1.0 K/UL ABS. BASOPHILS 0.0 0.0 - 0.4 K/UL ABS. IMM. GRANS. 0.1 0.0 - 0.17 K/UL DF AUTOMATEDMETABOLIC PANEL, COMPREHENSIVE Collection Time: 10/29/19 10:45 AMResult Value Ref Range Sodium 136 136 - 145 mmol/L Potassium 4.4 3.5 - 5.1 mmo l/L Chloride 106 98 - 107 mmol/L CO2 22 21 - 32 mmol/L Anion gap 12 10 - 20 mmol/L Gl ucose 108 (H) 74 - 106 mg/dL BUN 16 7 - 18 mg/dL Creatinine 1.05 0.70 - 1.30 mg/dL GFR est AA >60 >60 ml/min/1.73m2 GFR est non-AA >60 >60 ml/min/1.73m2 Calcium 8.8 8.5 - 10.1 mg/dL Bilirubin, total 0.7 0.2 - 1.0 mg/dL ALT (SGPT) 30 13 - 61 U/L AST (SGOT) 27 15 - 37 U/L Alk. phosphatase 139 (H) 45 - 117 U/L Protein, total 7.6 6.4 - 8.2 g/dL Albumin 3.9 3.5 - 4.7 g/dL Globulin 3.7 1.7 - 4.7 g/dL A-G Ratio 1. 0 0.7 - 2.8PROTHROMBIN TIME + INR Collection Time: 10/29/19 10:45 AMResult Value Ref Range Prothrombin time 10.3 9.4 - 11.1 sec INR 1.0 0.8 - 1.2PTT Collection Time: 10:45 AMResult Value Ref Range aPTT 22.2 21.0 - 28.0 SECLITHIUM Collection T lydia: 10/29/19 10:45 AMResult Value Ref Range [place] level <0.20 (L) 0.6 - 1.2 MMOL/L GLUCOSE, POC Collection Time: 10/29/19 11:26 AMResult Value Ref Range Glucose, bedsid e 102 65 - 110 MG/DLAll lab results for the last 24 hours reviewed.Assessment/PlanAc tive Problems: Bipolar disorder with severe depression (HCC) (10/29/2019) possible valentina dvertentoverdoseGeorge MD Corey Name Value Range Interpretation Code Description Data Melani rce(s) Supporting Document(s ) ID Date Data Source [id number] 10/29/2019 03:42:10 PM EDT [facility] TRANSFER - OUT REPORT:Verbal report give n to herminio RN(name) on Maxwell Bray being transferred to(unit) for routine progr ession of careReport consisted of patient's Situation, Background, Assessment andReleda gonzalezdasreedhar(SBAR).Information from the following report(s) SBAR, Kardex, ED BAY [place] Results was reviewed with the receiving nurse.Lines:Peripheral IV 10/29/19 Left Hand (Active)Site Assessment Clean, dry, & intact 10/29/2019 11:19 AMPh lebitis Assessment 0 10/29/2019 11:19 AMInfiltration Assessment 0 10/29/2019 11: 19 AMDressing Status Clean, dry, & intact 10/29/2019 11:19 AMDressing Type 4 X 4;Tra nsparent 10/29/2019 11:19 AMHub Color/Line Status Blue 10/29/2019 11:19 AMOpportunity for questions and clarification was provided. Name Value Range Interpretation Code Description Data Melani rce(s) Supporting Document(s ) ID Date Data Source [id number] 10/29/2019 02:28:59 PM EDT [facility] The history is provided by the spouse.10 :55 AM: Maxwell Spain is a 49 y.o. male with h/o anxiety and depression whoprese nts to the ED via EMS after his found him this morning and reports hewas james rgic, confused, and slurring his speech. No other history is obtainableat this time as the patient is unable to give any history secondary to hismental status.Past Medic al History:Diagnosis Date Other unknown and unspecified cause of morbidity or mortal ity cardiac cath at [facility] approx 6-8 months ago Other unknown and unspecified cause of morbidity or mortality concussions Other unknown and unspecified cause of morbidi ty or mortality "periodic disorientation" Other unknown and unspecified cause of m orbidity or mortality anxiety Psychiatric disorder anxiety, depressionPast Surgica l History:Procedure Laterality Date ABDOMEN SURGERY PROC UNLISTED gastric bypass 201 0 HX GASTRIC BYPASS roue-en-y HX ORTHOPAEDIC 1985 aarthroscopic knee dieter magi HX ORTHOPAEDIC 1990 broken footFamily History:Problem Relation Age of Onset D iabetes Mother Heart Disease MotherSocial HistorySocioeconomic History Marital st atus: Spouse name: Not on file Number of children: Not on file Years o f education: Not on file Highest education level: Not on fileOccupational History Not on fileSocial Needs Financial resource strain: Not very hard Food insecurity Worry: Never true Inability: Never true Transportation needs Medical: No Non-m edical: NoTobacco Use Smoking status: Never Smoker Smokeless tobacco: Never UsedSub stance and Sexual Activity Alcohol use: No Frequency: Never Drinks per session: 1 or 2 Binge frequency: Never Drug use: No Sexual activity: Not Currently Partners : FemaleLifestyle Physical activity Days per week: 0 days Minutes per session: 0 min Stress: Very muchRelationships Social connections Talks on phone: Once a week Gets together: Once a week Attends shinto service: More than 4 times per year Active member of club or organization: No Attends meetings of clubs or organiz ations: Never Relationship status: Intimate partner violence Fear of curre nt or ex partner: No Emotionally abused: No Physically abused: No Forced sexual act ivity: NoOther Topics Concern Service No Blood Transfusions No Caffe ine Concern No Occupational Exposure No Hobby Hazards No Sleep Concern Yes Str ess Concern Yes Weight Concern Yes Special Diet No Back Care No Exercise No Bike Helmet No Seat Belt Yes Self-Exams NoSocial History Narrative Not on fileA LLERGIES: Patient has no known allergies.Review of SystemsUnable to per form ROS: Acuity of conditionVitals: 10/29/19 1036BP: (!) 150/104Pulse: 96Resp: 15Temp : 98.3 F (36.8 C)SpO2: 96%Weight: 136.1 kg (300 lb)Height: 5' 7" (1.702 m)10:36 AM Pulse Oximetry reading is 96 % on room air, which indicates normaloxygenation per Cristobal Wade MD.Physical ExamVitals signs and nursing note reviewed.Constitutional: General: He is awake. He is not in acute distress. Appearance: He is well-devel oped. Comments: Alert and oriented x2, not to date.HENT: Head: Normocephalic and atraumatic.Eyes: Extraocular Movements: Extraocular movements intact. Pupils: Pupils are equal, round, and reactive to light.Neck: Musculoskeletal: Normal ra nge of motion and neck supple. No musculartenderness.Cardiovascular: Rat e and Rhythm: Normal rate and regular rhythm. Heart sounds: Normal heart sounds. No murmur. No friction rub. No gallop.Pulmonary: Effort: Pulmonary effort is normal. No respiratory distress. Breath sounds: Normal breath sounds. No wheezing or ral es.Abdominal: General: Bowel sounds are normal. There is no distension. Palpat ions: Abdomen is soft. Tenderness: There is no abdominal tenderness. There is no gua rding orrebound.Musculoskeletal: Normal range of motion. General: No swelling.Skin: General: Skin is warm and dry. Findings: No rash.Neurological: Mental Status: H e is alert. Comments: moves all extremities.Psychiatric: Mood and Affe ct: Mood normal. Behavior: Behavior normal.MDMNumber of Diagnoses or Managem ent OptionsAmount and/or Complexity of Data ReviewedClinical lab tests: ordered and reviewedTests in the radiology section of CPT : ordered and reviewedDecide to obtain p revious medical records or to obtain history from someoneother than the patient: yesO btain history from someone other than the patient: yesReview and summarize past me dical records: yesIndependent visualization of images, tracings, or specimens: yesPr Awais Ricks Stephen, MD, reviewed the patient's past history, allergies and ho memedications as documented in the nursing chart.Labs:Recent Results (from the past 12 hour(s))EKG, 12 LEAD, INITIAL Collection Time: 10/29/19 10:31 AMResult Value Ref Range Ventricular Rate 101 BPM Atrial Rate 101 BPM P-R Interval 218 ms QRS Duration 119 ms Q-T Interval 344 ms QTC Calculation (Bezet) 446 ms Calculated P Parkman 53 degr ees Calculated R Parkman 68 degrees Calculated T Parkman 0 degrees Diagnosis Sinus tachycar diaProlonged GA intervalNonspecific intraventricular conduction delayCBC WIT H AUTOMATED DIFF Collection Time: 10/29/19 10:45 AMResult Value Ref Range WBC 8.1 4 .8 - 10.6 K/uL RBC 5.52 4.70 - 6.00 M/uL HGB 16.7 14.0 - 18.0 g/dL HCT 51.8 42.0 - 52 .0 % MCV 93.8 81.0 - 94.0 FL MCH 30.3 27.0 - 35.0 PG MCHC 32.2 30.7 - 37.3 g/dL RDW 1 3.2 11.5 - 14.0 % PLATELET 193 130 - 400 K/uL MPV 8.6 (L) 9.2 - 11.8 FL NRBC 0.0 0 PER 100 WBC ABSOLUTE NRBC 0.00 0.0 - 0.01 K/uL NEUTROPHILS 79 (H) 48.0 - 72.0 % LYMPHOC YTES 10 (L) 18.0 - 40.0 % MONOCYTES 8 2.0 - 12.0 % EOSINOPHILS 1 0.0 - 7.0 % BASOPHI LS 0 0.0 - 3.0 % IMMATURE GRANULOCYTES 1 (H) 0 - 0.5 % ABS. NEUTROPHILS 6.4 2.3 - 7.6 K/UL ABS. LYMPHOCYTES 0.8 (L) 0.9 - 4.2 K/UL ABS. MONOCYTES 0.7 0.1 - 1.7 K/UL ABS. E OSINOPHILS 0.1 0.0 - 1.0 K/UL ABS. BASOPHILS 0.0 0.0 - 0.4 K/UL ABS. IMM. GRANS. 0.1 0.0 - 0.17 K/UL DF AUTOMATEDMETABOLIC PANEL, COMPREHENSIVE Collection Time: 10/29/19 10:45 AMResult Value Ref Range Sodium 136 136 - 145 mmol/L Potassium 4.4 3.5 - 5.1 mmo l/L Chloride 106 98 - 107 mmol/L CO2 22 21 - 32 mmol/L Anion gap 12 10 - 20 mmol/L Gl ucose 108 (H) 74 - 106 mg/dL BUN 16 7 - 18 mg/dL Creatinine 1.05 0.70 - 1.30 mg/dL GFR est AA >60 >60 ml/min/1.73m2 GFR est non-AA >60 >60 ml/min/1.73m2 Calcium 8.8 8.5 - 10.1 mg/dL Bilirubin, total 0.7 0.2 - 1.0 mg/dL ALT (SGPT) 30 13 - 61 U/L AST (SGOT) 27 15 - 37 U/L Alk. phosphatase 139 (H) 45 - 117 U/L Protein, total 7.6 6.4 - 8.2 g/dL Albumin 3.9 3.5 - 4.7 g/dL Globulin 3.7 1.7 - 4.7 g/dL A-G Ratio 1. 0 0.7 - 2.8PROTHROMBIN TIME + INR Collection Time: 10/29/19 10:45 AMResult Value Ref Range Prothrombin time 10.3 9.4 - 11.1 sec INR 1.0 0.8 - 1.2PTT Collection Time: 10:45 AMResult Value Ref Range aPTT 22.2 21.0 - 28.0 SECLITHIUM Collection T lydia: 10/29/19 10:45 AMResult Value Ref Range [place] level <0.20 (L) 0.6 - 1.2 MMOL/L GLUCOSE, POC Collection Time: 10/29/19 11:26 AMResult Value Ref Range Glucose, jannette mackey 102 65 - 110 MG/DLEKG: Sinus tachycardia at a rate of [address] or T wave fuentes es.Interpreted by Cristobal Ernandez MDRadiology:CXR RESULTS:CXR Results (La st 48 hours) 10/29/19 1209 XR CHEST PORT Final result Impression: IMPRESSION:.No acute pulmonary process. Prominent interstitial markings are felt to reflec tvascular cro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 Repeat PA and lateral vie ws thechest are advised if there is clinical concern for pneumonia or congestivefailu re. Narrative: XR CHEST PORTCLINICAL INDICATION PROVIDED:. "ams."TECHNIQUE.: 1 views, chest.COMPARISON:. 08/16/2019.FINDINGS:.The patient has take n a shallow inspiration on the present exam. Increasedinterstitial markings in both l ungs may reflect vascular crowding in the settingof low lung volumes. There is no lobar consolidation or large effusion. There isno pneumothorax.CT Results (Last 48 h ours) 10/29/[address] HEAD WO CONT Final result Impression: IMPRESSION: No acute intracranial pathology seen. Narrative: CT HEAD WO CONTClinical data: amsPriors: .Technique: Multiple axial images were obtained from the skullbase to the verte xwithout administration of intravenous contrast. Sagittal and coronalreconstru ction was performed. Utilizing manager talent management algorithm the examinationwas performed t o optimize imaging quality by utilizing the lowest possibleradiation dose.Findings: There is no evidence of intracranial hemorrhage, masses, acutecortical infarc tion, or midline shift. There are no extra-axial fluidcollections. There is no evidence of hydrocephalus.The bony calvarium shows no evidence of fracture or destructive bony process.Radiology interpretation reviewed by Cristobal Ernandez MD<EMERGENCY DEPARTMENT CASE SUMMARY>ED Course:49 y.o. male presented to the ED with lethargy on numerous psychiatricmedications. Will get labs, l ithium level, EKG, CXR, and head CT. Give IVfluids.Labs and radiology results revi ewed.11:50 AM: Data unremarkable. Patient is somewhat more alert, I suspect this mayb e due to his psychiatric medications. Will call PMD to admit.1:05 PM: Case presenta tion and findings discussed with Dr. Canas (PMD) who agreedto admit the patient. Valerio cantrell was reassessed prior to disposition. Discussedresults, diagnosis and treatmen t plan. Patient's questions were answered.Patient agrees with plan to adm it.COVID-19 suspected. Droplet precautions were taken.The patient had a surgical ma sk on upon entering the room: yesProvider PPE donned, including:Surgical mask: yesN95 mask: yesEye Protection: yesGloves: yesGown: yesPatient was seen during Covid-19 pand emic which may have affected standard ofcare.Final Impression/Diagnosis:Encoun ter Diagnoses ICD-10-CM ICD-9-CM1. Altered mental status, unspecified altered menta l status type R41.82 780.97Patient condition at time of disposition: StableI have rev iewed the following home medications:Prior to Admission medicationsMedication Sig Star t Date End Date Taking? Authorizing ProviderVraylar 3 mg capsule 09/03/19 Provider, Daniloamitriptyline (ELAVIL) 150 mg tablet TAKE 1 TABLET ORALLY NIGHT LY DOSE CHANGED08/20/19 Provider, Historicallithium carbonate 150 mg capsu le Take 300 mg by mouth three (3) times daily.Other, MD PaulvalACYclovir (VALTR EX) 1 gram tablet 07/17/18 Provider, DaniloclonazePAM (KLONOPIN) 2 mg tab let Take 1 mg by mouth daily. Other, Ailyn Miller Stephen, MD I, Alexander Costa, am serving as a scribe to document services personallyperformed by Cristobal Ernandez MD based on my observation and the provider'sstatements to me.Awais Vasquez Step hen, MD, attest that the person(s) noted above, acting as myscribe(s) noted above , has observed my performance of the services and hasdocumented them in accordance wit h my direction. I have personally reviewed theabove information and have ordered an d reviewed the diagnostic studies, unlessotherwise noted.+ Name Value Range Interpretation Code Description Data Melani rce(s) Supporting Document(s ) ID Date Data Source [id number] 10/29/2019 12:17:28 PM EDT [facility] XR CHEST PORTCLINICAL INDICATION PROVIDE D:. "ams."TECHNIQUE.: 1 views, chest.COMPARISON:. 08/16/2019.FINDINGS:. The patient has taken a shallow inspiration on the present exam. Increasedinterstiti al markings in both lungs may reflect vascular crowding in the settingof low l genny volumes. There is no lobar consolidation or large effusion. There isno pneumothor ax.IMPRESSION:. No acute pulmonary process. Prominent interstitial markings are felt to reflectvascular cro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 Repeat PA and lateral vie ws thechest are advised if there is clinical concern for pneumonia or congestivefailu re. Signing date/time: 10/29/2019 12:17 PMSigned by: JEAN GRANADOS Name Value Range Interpretation Code Description Data Melani rce(s) Supporting Document(s ) ID Date Data Source [id number] 10/29/2019 11:55:57 AM EDT [facility] CT HEAD WO CONTClinical data: amsPriors: 03/13/2015.Technique: Multiple axial images were obtained from the skullbase to the vertexwithout administration of intravenous contrast. Sagittal and coronalreconstru ction was performed. Utilizing manager talent management algorithm the examinationwas performed t o optimize imaging quality by utilizing the lowest possibleradiation dose.Findings: There is no evidence of intracranial hemorrhage, masses, acutecortical infarc tion, or midline shift. There are no extra-axial fluidcollections. There is no evidence of hydrocephalus.The bony calvarium shows no evidence of fracture or destructive bony process.IMPRESSION: No acute intracranial pathology seen. Sig mary date/time: 10/29/2019 11:55 AMSigned by: SABIHA TURPIN Name Value Range Interpretation Code Description Data Melani rce(s) Supporting Document(s ) ID Date Data Source [id number] 10/29/2019 11:48:34 AM EDT [facility] Name Value Range Interpretation Description Data Sup porting Code Source(s) Document(s ) Glucose 102 MG/DL 65-110 [facility] [Mass/volume] Judaism in Blood by [facility] Automated test strip ID Date Data Source [id number] 10/29/2019 10:49:56 AM EDT [facility] Patient lethargic, BIBA from home for le thargy and slurred speech. Name Value Range Interpretation Code Description Data Melani rce(s) Supporting Document(s ) ID Date Data Source [id number] 10/29/2019 11:29:33 AM EDT [facility] Name Value Range Interpretation Code Description Data Supporting Source(s) Document(s ) [place] 0.6-1.2 Below low normal [facility] [Moles/volum Judaism e] in Serum Hospital or Plasma ID Date Data Source [id number] 10/29/2019 11:28:52 AM EDT [facility] Name Value Range Interpretation Description Data Sup porting Code Source(s) Document(s ) Sodium 136 136-145 [facility] [Moles/volume] mmol/L [facility] in Serum or Hospital Plasma Potassium 4.4 3.5-5.1 [facility] [Moles/volume] mmol/L [facility] in Serum or Hospital Plasma Chloride 106 98-107 [facility] [Moles/volume] mmol/L [facility] in Serum or Hospital Plasma Carbon 22 21-32 [facility] dioxide, total mmol/L [facility] [Moles/volume] Hospital in Serum or Plasma Anion gap in 12 10-20 [facility] Serum or mmol/L Judaism Plasma Hospital Glucose 108 74-106 Above high normal [facility] [Mass/volume] mg/dL [facility] in Serum or Hospital Plasma Urea nitrogen 16 mg/dL 7-18 [facility] [Mass/volume] [facility] in Serum or Hospital Plasma Creatinine 1.05 0.70-1.3 [facility] [Mass/volume] mg/dL 0 Judaism in Serum or Hospital Plasma Glomerular >60 [facility] filtration Judaism rate/1.73 sq M Hospital predicted among blacks [Volume Rate/Area] in Serum or Plasma by Creatinine-bas ed formula (MDRD) Glomerular >60 [facility] filtration Judaism rate/1.73 sq M Hospital predicted among non-blacks [Volume Rate/Area] in Serum or Plasma by Creatinine-bas ed formula (MDRD) (NOTE)Estimated GFR is calculated using the Modification of Diet in RenalDisease (MDRD) Study equation, reported for both Americans(GFRAA) and non- Americans (GFRNA), and normalized to 1.7 [id number] surface area. The physician must decide which value applies tothe patient . The MDRD study equation should only be used inindividuals age 18 or older. It has no t been validated for thefollowing: women, patients with serious comorbid co nditions,or on certain medications, or persons with extremes of body size,muscl e mass, or nutritional status. Calcium [Mass/volume] in 8.8 mg/dL 8.5-10.1 [facility] Serum or Plasma [facility] ital Bilirubin.total 0.7 mg/dL 0.2-1.0 [facility] [Mass/volume] in Serum or [facility] Plasma Alanine aminotransferase 30 U/L 13-61 [facility] [Enzymatic activity/volume] [facility] in Serum or Plasma Aspartate aminotransferase 27 U/L 15-37 [facility] - Good [Enzymatic activity/volume] [facility] in Serum or Plasma by With P-5'-P Alkaline phosphatase 139 U/L 45-117 Above high [facility] [Enzymatic activity/volume] normal [facility] in Serum or Plasma Protein [Mass/volume] in 7.6 g/dL 6.4-8.2 [facility] Serum or Plasma [facility] ital Albumin [Mass/volume] in 3.9 g/dL 3.5-4.7 [facility] Good Serum or Plasma by [facility] ospital Bromocresol purple (BCP) dye binding method Globulin [Mass/volume] in 3.7 g/dL 1.7-4.7 [facility] Serum by calculation [facility] Albumin/Globulin [Mass 1.0 0.7-2.8 [facility] Ratio] in Serum or Plasma [facility] ID Date Data Source [id number] 10/29/2019 11:20:29 AM EDT [facility] Name Value Range Interpretation Description Data Sup porting Code Source(s) Document(s ) aPTT in 22.2 SEC 21.0-28. [facility] Platelet poor 0 Judaism plasma by Hospital Coagulation assay Therapeutic Range = 42.0-60.0 secs ID Date Data Source [id number] 10/29/2019 11:20:29 AM EDT [facility] Name Value Range Interpretation Description Data Sup porting Code Source(s) Document(s ) Prothrombin 10.3 sec 9.4-11.1 [facility] time (PT) [facility] INR in 1.0 0.8-1.2 [facility] - Good Platelet poor Judaism plasma by Hospital Coagulation assay ID Date Data Source [id number] 10/29/2019 11:11:49 AM EDT [facility] Name Value Range Interpretation Description Data Sup porting Code Source(s) Document(s ) Leukocytes 8.1 K/uL 4.8-10.6 [facility] - [#/volume] in Good Blood by Judaism Automated count [facility] Erythrocytes 5.52 4.70-6.0 [facility] - [#/volume] in M/uL 0 Good Blood by [facility] Automated [facility] Hemoglobin 16.7 14.0-18. [facility] - [Mass/volume] in g/dL 0 Good Blood [facility] Hematocrit 51.8 % 42.0-52. [facility] - [Volume 0 Good Fraction] of Judaism Blood by Hospital Automated count Erythrocyte mean 93.8 FL 81.0-94. [facility] - corpuscular 0 Good volume [Entitic Judaism volume] by Hospital Automated count Erythrocyte mean 30.3 PG 27.0-35. [facility] - corpuscular 0 Good hemoglobin Judaism [Entitic mass] Hospital by Automated count Erythrocyte mean 32.2 30.7-37. [facility] - corpuscular g/dL 3 Good hemoglobin Judaism concentration [facility] [Mass/volume] by Automated count Erythrocyte 13.2 % 11.5-14. [facility] - distribution 0 Good width [Ratio] by Judaism Automated count [facility] Platelets 193 K/uL 130-400 [facility] - [#/volume] in Good Blood by [facility] Platelet mean 8.6 FL 9.2-11.8 Below low normal [facility] - volume [Entitic Good volume] in Blood Judaism by Automated Hospital count Nucleated 0.0 PER 0 [facility] - erythrocytes/100 100 WBC Good leukocytes Judaism [Ratio] in Blood [facility] Nucleated 0.00 0.0-0.01 [facility] - erythrocytes K/uL Good [#/volume] in [facility] Segmented 79 % 48.0-72. Above high normal [facility] - neutrophils/100 0 Good leukocytes in [facility] Lymphocytes/100 10 % 18.0-40. Below low normal [facility] - leukocytes in 0 [facility] Monocytes/100 8 % 2.0-12.0 [facility] - leukocytes in [facility] Eosinophils/100 1 % 0.0-7.0 [facility] - leukocytes in [facility] Basophils/100 0 % 0.0-3.0 [facility] - leukocytes in [facility] Immature 1 % 0-0.5 Above high normal [facility] - granulocytes/100 Good leukocytes in [facility] Automated count Segmented 6.4 K/UL 2.3-7.6 [facility] - neutrophils Good [#/volume] in [facility] Lymphocytes 0.8 K/UL 0.9-4.2 Below low normal [facility] - [#/volume] in [facility] Monocytes 0.7 K/UL 0.1-1.7 [facility] - [#/volume] in [facility] Eosinophils 0.1 K/UL 0.0-1.0 [facility] - [#/volume] in [facility] Basophils 0.0 K/UL 0.0-0.4 [facility] - [#/volume] in [facility] Immature 0.1 K/UL 0.0-0.17 [facility] - granulocytes Good [#/volume] in [facility] Automated count Differential [facility] - cell count [facility] ID Date Data Source [id number] 09/15/2019 09:44:01 AM EDT [facility] - [facility] Clinical Indications/Reason For Exam: pa in.AP, open-mouth and lateral views of the cervical spine were performed into theli ulises evaluation. No old films are available for comparison.No acute fractures or dis locations are seen. Degenerative changes are noted fromC4 through C7 with a small ret rolisthesis of C4 on C5. The bone mineral densityis normal. There is no prevertebr al soft tissue swelling.IMPRESSION:No evidence of acute fracture.Degenerative changes as above with a small retrolisthesis of C4 on C5. Signing date/time: 0 9:44 AMSigned by: JOSE R HEWITT Name Value Range Interpretation Code Description Data [facility] rce(s) Supporting Document(s ) ID Date Data Source [id number] 09/15/2019 09:41:40 AM EDT [facility] THORACIC SPINE 4 views.History: Pain.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 Signing date/time: 09/15/2019 9:41 AMSigned by: CURTIS VARMA Name Value Range Interpretation Code Description Data [facility] ) ID Date Data Source [id number] 09/15/2019 09:40:53 AM EDT [facility] Clinical indications with reason for exa m: Baseline prior to ECT.Three views of the lumbosacral spine were performed for rosio luation. No old filmsare available for comparison.No acute fractures or disloca tions are seen. Small anterior vertebral bodyosteophytes are seen from L3 to L5. There is no evidence of a spondylolisthesisor retrolisthesis. The bone mineral density is normal.IMPRESSION:No evidence of acute fracture.Degenerative changes as above. Signing date/time: 09/15/2019 9:40 AMSigned by: JOSE R HEWITT Name Value Range Interpretation Code Description Data [facility] Supporting Document(s ) ID Date Data Source [id number] 08/17/2019 08:25:20 AM EST [facility] History: Chest PainTechnique: Portable c hest x-ray 08/16/2019 9:40 PMComparison: 08/11/2019. FINDINGS: There is linear ate lectasis in the left lung base.No focal infiltrate or effusion is identified. Ev aluation of the cardiac silhouette is limited by projection.The visualized osseous str uctures appear unremarkable.IMPRESSION: No focal infiltrate or effusion Signing amrlon e/time: 08/17/2019 8:25 AMSigned by: RAMANDEEP SANTANA Name Value Range Interpretation Code Description Data Melani rce(s) Supporting Document(s ) ID Date Data Source [id number] 08/16/2019 11:12:[address] [facility] The history is provided by the patient, the EMS personnel and the spouse.Maxwell Bray is a 49-year-old male who presen ts with EMS complaining of rash toface and shortness of breath. He was referred by outpatient urgent care centerfor evaluation. He arrived alert and verbal and in no d istress.Past Medical History:Diagnosis Date Other unknown and unspecified cause of m orbidity or mortality cardiac cath at [facility] approx 6-8 months ago Other unknown and unspecified cause of morbidity or mortality concussions Other unknown and unspecifi ed cause of morbidity or mortality "periodic disorientation" Other unknown and unspecified cause of morbidity or mortality anxiety Psychiatric disorder anxiety, d epressionPast Surgical History:Procedure Laterality Date ABDOMEN SURGERY PROC UN LISTED gastric bypass 2009 HX GASTRIC BYPASS roue-en-y HX ORTHOPAEDIC 1985 aarthros copic knee surgery HX ORTHOPAEDIC 1990 broken footFamily History:Problem Relati on Age of Onset Diabetes Mother Heart Disease MotherSocial HistorySocioeconomi c History Marital status: Spouse name: Not on file Number of children: N ot on file Years of education: Not on file Highest education level: Not on fileOccu pational History Not on fileSocial Needs Financial resource strain: Not on file Food insecurity: Worry: Not on file Inability: Not on file Transportation n eeds: Medical: Not on file Non- medical: Not on fileTobacco Use Smoking status: Ness baez Smoker Smokeless tobacco: Never UsedSubstance and Sexual Activity Alcoh ol use: No Frequency: Never Drug use: No Sexual activity: NeverLifestyle Physica l activity: Days per week: Not on file Minutes per session: Not on file Stress : Not on fileRelationships Social connections: Talks on phone: Not on olivier e Gets together: Not on file Attends shinto service: Not on file 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 of club or organization: Not on file Attends meetings of clubs or organizatio ns: Not on file Relationship status: Not on file Intimate partner violence: Fear o f current or ex partner: Not on file Emotionally abused: Not on file Physica lly abused: Not on file Forced sexual activity: Not on fileOther Topics Concer n Not on fileSocial History Narrative Not on fileALLERGIES: Patient has no known a llergies.Review of SystemsConstitutional: Negative. Negative for chills and fever .HENT: Negative.Eyes: Negative.Respiratory: Positive for shortness of breath.Gastroi ntestinal: Negative.Endocrine: Negative.Genitourinary: Negative.Musculo skeletal: Negative.Skin: Negative. Negative for rash.Allergic/Immunologic: Negative. Neurological: Negative.Hematological: Negative.Psychiatric/Behavioral: Negativ e.All other systems reviewed and are negative.Vitals: 08/16/19 2100 08/16/19 2130 08/16/19 2200 08/16/19 2201BP: 126/79 123/86 121/86Pulse: (!) 107 (!) 101 96R tahmina: 20 20 15Temp:SpO2: 91% 91% 92%Weight:Height:Physical ExamVitals sig ns and nursing note reviewed.Constitutional: General: He is not in acute distress. Appearance: He is well-developed.HENT: Head: Normocephalic and atraumatic.Neck: Musculoskeletal: Normal range of motion and neck supple.Cardiovascular: Rate a nd Rhythm: Regular rhythm. Tachycardia present. Heart sounds: Normal heart so unds. No murmur.Pulmonary: Effort: Pulmonary effort is normal. No respirato ry distress. Breath sounds: Normal breath sounds.Abdominal: General: There is no distension. Palpations: Abdomen is soft. Tenderness: There is no abdominal tender ness. There is no guarding orrebound.Musculoskeletal: Normal range of motion.Skin: General: Skin is warm and dry. Capillary Refill: Capillary refil l takes less than 2 seconds. Findings: Rash present. Rash is purpuric.Neurological: Mental Status: He is alert and oriented to person, place, and time. Cranial Nerve s: No cranial nerve deficit. Sensory: No sensory deficit.Psychiatric: Behavior: Behavior normal.Indio Schwartz NP, reviewed the patient's pas t history, allergies andhome medications as documented in the nursing chart.Labs:Rec ent Results (from the past 12 hour(s))EKG, 12 LEAD, INITIAL Collection Time: 08/16/19 8:47 PMResult Value Ref Range Ventricular Rate 109 BPM Atrial Rate 112 BPM P-R Int erval 175 ms QRS Duration 91 ms Q-T Interval 319 ms QTC Calculation (Bezet) 429 ms Ca lculated P Parkman 36 degrees Calculated R Parkman 77 degrees Calculated T Parkman -24 degrees Diagnosis Sinus tachycardiaBorderline T abnormalities, diffuse leadsMETABOLIC PA SOFIA, COMPREHENSIVE Collection Time: 08/16/19 9:00 PMResult Value Ref Range Sodium 138 136 - 145 mmol/L Potassium 3.4 (L) 3.5 - 5.1 mmol/L Chloride 108 (H) 98 - 107 mmol/L CO2 20 (L) 21 - 32 mmol/L Anion gap 14 10 - 20 mmol/L Glucose 105 74 - 106 mg/dL BUN 20 (H) 7 - 18 mg/dL Creatinine 0.90 0.70 - 1.30 mg/dL GFR est AA >60 >60 ml/min/1.7 3m2 GFR est non-AA >60 >60 ml/min/1.73m2 Calcium 7.9 (L) 8.5 - 10.1 mg/dL Bilirub in, total 0.3 0.2 - 1.0 mg/dL ALT (SGPT) 37 13 - 61 U/L AST (SGOT) 22 15 - 37 U/L Al k. phosphatase 98 45 - 117 U/L Protein, total 7.0 6.4 - 8.2 g/dL Albumin 3.7 3.5 - 4.7 g/dL Globulin 3.3 1.7 - 4.7 g/dL A-G Ratio 1.1 0.7 - 2.8CBC WITH AUTOMATED DIFF Col lection Time: 08/16/19 9:00 PMResult Value Ref Range WBC 7.6 4.8 - 10.6 K/uL RBC 4. 97 4.70 - 6.00 M/uL HGB 15.2 14.0 - 18.0 g/dL HCT 45.0 42.0 - 52.0 % MCV 90.5 81.0 - 9 4.0 FL MCH 30.6 27.0 - 35.0 PG MCHC 33.8 30.7 - 37.3 g/dL RDW 13.0 11.5 - 14.0 % PLATE LET 183 130 - 400 K/uL MPV 8.5 (L) 9.2 - 11.8 FL NRBC 0.0 0 PER 100 WBC ABSOLUTE NRBC 0.00 0.0 - 0.01 K/uL NEUTROPHILS 68 48.0 - 72.0 % LYMPHOCYTES 19 18.0 - 40.0 % MONO CYTES 7 2.0 - 12.0 % EOSINOPHILS 5 0.0 - 7.0 % BASOPHILS 1 0.0 - 3.0 % IMMATURE GRANU LOCYTES 1 (H) 0 - 0.5 % ABS. NEUTROPHILS 5.2 2.3 - 7.6 K/UL ABS. LYMPHOCYTES 1.5 0.9 - 4.2 K/UL ABS. MONOCYTES 0.6 0.1 - 1.7 K/UL ABS. EOSINOPHILS 0.3 0.0 - 1.0 K/UL ABS. BASOPHILS 0.0 0.0 - 0.4 K/UL ABS. IMM. GRANS. 0.0 0.0 - 0.17 K/UL DF AUTOMATEDT ROPONIN I Collection Time: 08/16/19 9:00 PMResult Value Ref Range Troponin-I, Qt. <0.02 0.00 - 0.05 NG/MLMAGNESIUM Collection Time: 08/16/19 9:00 PMResult Value Ref Range Magnesium 2.3 1.6 - 2.6 mg/dLD DIMER Collection Time: 08/16/19 9:00 PMResult Value Ref Range D-dimer <500 <500 ng/mL (FEU)LITHIUM Collection Time: 08/16/19 9:00 PMResult Value Ref Range [place] level 0.21 (L) 0.6 - 1.2 MMOL/LEKG: sinus tach ycardia, rate 109Radiology:CXR: no acute findings<EMERGENCY DEPARTMENT CASE [facility]>Impression/Differential Diagnosis: Allergic reaction allergic, drug reactio n,ACS, pulmonary embolismED Course: Patient presents short of breath and mildly tach ycardic complainingof new onset rash to face anterior chest and posterior chest.Plan: Labs, chest x-ray, EKG, troponin, d-dimer, prednisone, Pepcid, gyhnuelmfik05:04 PM patient verbalizes relief of symptoms rash has faded. He denies chestpain he denie s shortness of breath.Patient was advised that we cannot rule out allergic drug re action as he isrecently just restarted taking his lithium. Patient advised to discuss takinglithium with his psychiatrist as soon as possible.Patient reassessed at [facility] by me. Feels better at present, wants to go home.Patient was told to follow up with the primary doctor in 1-2 days and return [facility] ED for any worsening severe pain, vomiting, fever, or any other concerns.Family/friend was present for t he conversation. Patient and family membersverbalized understanding of the d ischarge instructions and had no furtherquestions at this time.Final Impr ession/Diagnosis:Encounter Diagnoses ICD-10-CM ICD-9-CM1. Allergic reaction, initial encounter T78.40XA 995.32. Allergic reaction to drug, initial encounter T78. 40XA 995.27Patient condition at time of disposition: patriciaI have reviewed the f [facility] medications:Prior to Admission medicationsMedication Sig Start Date End Date Taking? Authorizing ProviderbuPROPion XL (WELLBUTRIN XL) 300 mg XL tablet Take 300 mg by mouth everymorning. Yes Suzette, MD Paullithium carbonate 150 mg capsule Take 300 mg by mouth three (3) times daily.Yes Suzette, Rosenda MillerredniSONE (DEL TASONE) 50 mg tablet Take 1 Tab by mouth daily for 3 days.08/16/19 08/19/19 Yes [place]io Xavier NPVRAYLAR 6 mg capsule Take 6 mg by mouth daily. 07/07/19 Yes Danilo Rlooncyclobenzaprine (FLEXERIL) 10 mg tablet Take 1 Tab by mouth three ( 3) timesdaily as needed for Muscle Spasm(s). 07/21/19 Ritika Canas MDvalACYclovir (V ALTREX) 1 gram tablet TAKE 1 TABLET BY MOUTH THREE TIMES A DAYFOR 10 DAYS 07/17/18 Danilo RolonclonazePAM (KLONOPIN) 2 mg tablet Take 2 mg by mouth daily. Othe rPaul MDfluoxetine HCl (PROZAC PO) Take 60 mg by mouth daily. Other, Hodan Miller NPI was personally available for consultation in the emerge ncy department. I havereviewed the chart and agree with the documentation recorded by the P,including the assessment, treatment plan, and disposition.Mayank Troy MD Name Value Range Interpretation Code Description Data Melani rce(s) Supporting Document(s ) ID Date Data Source 36N*ENCOUNTER 08/16/2019 10:46:05 PM EST [facility] [id number] [facility] EMERGENCY DEPARTMENT [address] [place] [address] [phone]/ Maxwell Bray (Male) [id number] I 3 ED Dispo:DISCHARGE Chief Complaint: Allergic Reaction Diagnosis: Allergic reaction, initial encounter [] Allergic reaction to drug, in itial encounter [] Current Providers: Attending: Javier Quezada Nurse Practitioner: Javier Ward Primary Nurse: HARINDER AcuñaN: [id number] Print Group [id number] - [facility] MrnMRN: [id number] Print Group [id number] - [facility] Age Sex 1970 AGE 49 SEX Male Primary Care Provider: Ritika Canas MD Towcscnkx: (No Known Allergies)Date Reviewed: 08/16/2019Reviewed by: Zahraa Prince RN - Review CompleteED Provider Notes: No not es of this type exist for this encounter.ED Orders BUPROPION XL 300 MG 24 HR TAB [#[id number]] Priority: Routine Class: Historical Med LITHIUM CARBONATE 150 MG CAP [#[id number]] Priority: Routine Class: Historical Med FAMOTIDINE 20MG + NS 10 ML IV [#[id number]] Priority: STAT Class: Normal H2RA INDICATION -> Adverse reaction/Anaphylaxis SODIUM CH LORIDE 0.9 % IV [#[id number]] Priority: STAT Class: Normal METHYLPREDNISOLONE (PF) 125 MG/2 ML * [#[id number]] Priority: STAT Class: Normal ASPIRIN 81 MG CHEWABLE TAB [# [id number]] Priority: STAT Class: Normal PREDNISONE 50 MG TAB [#[id number]] Bridgette ority: Routine Class: Normal [id number] [employer] EX[employer] OPERATIONS AGENT - ED ONLY [#[id number]] Priority: STAT C lass: Hospital Performed Standing Order Information Remaining Occurrences:0/1 Interval:Contin uous Last released:08/16/2019 Released orders: Sat Aug 16, 2019 9:02 PM by: Javier POLLOCK Type: -> Bedside [id number] OBTAIN OLD EKG [#[id number]] Priority: Routi ne Class: Hospital Performed Standing Order Information Remaining Occurrences:0/1 Inter haile:ONE TIME Last released:08/16/2019 Released orders: Sat Aug 16, 2019 9:02 PM by: INDIO WARD [id number] PULSE OXIMETRY CONTINUOUS [#[id number]] Priority: STAT Class: H ospital Performed Standing Order Information Remaining Occurrences:0/1 Interval:CONTIN UOUS Last released:08/16/2019 Released orders: Sat Aug 16, 2019 9:02 PM by: Javier POLLOCK [id number] [employer] EXPORT OPERATIONS AGENT - ED ONLY [#[id number]] Priority: STAT Class: Hospital Perfo rmed Type: -> Bedside Released on: 08/16/2019 9:02 PM [id number] OBTAIN OLD EKG [#[id number]] Priority: STAT Class: Hospital Performed Released on: 08/16/2019 9:02 PM [id number] PULSE OXIMETRY CONTINUOUS [#[id number]] Priority: STAT Class: Hospital Performed Relea sed on: 08/16/2019 9:02 PM [id number] DIET NPO [#[id number]] Priority: STAT Cla ss: Hospital Performed Standing Order Information Remaining Occurrences:0/1 Interval:DIET E FFECTIVE NOW Last released:08/16/2019 Released orders: [facility] Aug 16, 2019 9:02 PM by: INDIO WARD NPO options: -> With Meds [id number] DIET NPO [#[id number]] Priority: STAT Class: Hospital Performed NPO options: -> With Meds Released on: 08/16/2019 9:02 PM [id number] SALINE LOCK IV [#[id number]] Priority: STAT Class: Hospital Performe d Standing Order Information Remaining Occurrences:0/1 Interval:ONE TIME Last released: 08/16/2019 Released orders: [facility] Aug 16, 2019 9:02 PM by: INDIO POLLOCK [id number] SALIN E LOCK IV [#[id number]] Priority: STAT Class: Hospital Performed Released on : 08/16/2019 9:02 PM [id number] METABOLIC PANEL, COMPREHENSIVE [#[id number]] Priority: STAT Class: E R Collect Standing Order Information Remaining Occurrences:0/1 Interval:ONE TIME Last r eleased:08/16/2019 Released orders: [facility] Aug 16, 2019 9:02 PM by: INDIO POLLOCK [id number] CBC WITH AUTOMATED DIFF [#[id number]] Priority: STAT Class: ER Collect Standing Order Info rmation Remaining Occurrences:0/1 Interval:ONE TIME Last released:08/16/2019 Released orders: [facility] Aug 16, 2019 9:02 PM by: INDIO POLLOCK [id number] TROPONIN I [#[id number]] Priority: STAT Class: ER Collect Standing Order Information Remaining Occurre nces:0/1 Interval:ONE TIME Last released:08/16/2019 Released orders: [facility] Aug 16 9:02 PM by: INDIO POLLOCK [id number] MAGNESIUM [#[id number]] Priorit y: STAT Class: ER Collect Standing Order Information Remaining Occurrences:0/1 Inter haile:ONE TIME Last released:08/16/2019 Released orders: [facility] Aug 16, 2019 9:02 PM by: INDIO WARD [id number] D DIMER [#[id number]] Priority: STAT Class: E R Collect Standing Order Information Remaining Occurrences:0/1 Interval:ONE TIME Last r eleased:08/16/2019 Released orders: [facility] Aug 16, 2019 9:02 PM by: INDIO POLLOCK [id number] METABOLIC PANEL, COMPREHENSIVE [#[id number]] Priority: STAT Class: ER Collect Specimen Source: Plas ma Specimen Collected: 08/16/2019 9:00 PM Resulting Agency: [facility] Test ID: MPL Released on: 08/16/2019 9:02 PM [id number] CBC WITH AUTOMATED DIFF [#[id number]] Prior ity: STAT Class: ER Collect Specimen Source: Whole Blood Specimen Collected: 08/16/2019 9:00 PM Resultin g Agency: [facility] Test ID: [id number] Released on: 08/16/2019 9:02 PM [id number] TROPONIN I [#[id number]] Priority: STAT Class: ER Collect Specimen Source : Plasma Specimen Collected: 08/16/2019 9:00 PM Resulting Agency: [facility] Test ID: TROIP Released on: 08/16/2019 9:02 PM [id number] MAGNESIUM [#[id number]] Priority: STAT Class: ER Collect Specimen Source: Plasma Specimen Collected: 08/16/2019 9:00 PM Resultin g Agency: [facility] Test ID: MGPL Released on: 08/16/2019 9:02 PM [id number] D DIMER [#[id number]] Priority: STAT Class: ER Collect Specimen Source : Plasma Specimen Collected: 08/16/2019 9:00 PM Resulting Agency: [facility] Test ID: [id number] Released on: 08/16/2019 9:02 PM [id number] LITHIUM [#[id number]] Priority: STAT Class: ER Collect Standing Order Information Remaining Occurrences:0/1 Inter haile:ONE TIME Last released:08/16/2019 Released orders: Sat Aug 16, 2019 9:02 PM by: INDIO WARD [id number] LITHIUM [#[id number]] Priority: STAT Class: E R Collect Specimen Source: Serum Specimen Collected: 08/16/2019 9:00 PM Resulting Agency: [facility] Test ID: LI Released on: 08/16/2019 9:02 PM [id number] EKG, 12 LEAD, INITIAL [#[id number]] Priority: STAT Class: Hospital Performed Standing Order Information Remainin g Occurrences:0/1 Interval:ONE TIME Last released:08/16/2019 Released orders : Sat Aug 16, 2019 9:02 PM by: INDIO POLLOCK Reason for Exam: -> Chest Pain [id number] EKG, 12 LEAD, INITIAL [#[id number]] Priority: STAT Class: Hospital Performed Resulting Age ncy: GSH MUSE Test ID: [id number] Reason for Exam: -> Chest Pain Released on: 08/16/2019 9:02 PM [id number] XR CHEST PORT [#[id number]] Priority: STAT Class: Hospital Performed Stand ing Order Information Remaining Occurrences:0/1 Interval:ONE TIME Last released:0 08/16/2019 Released orders: Sat Aug 16, 2019 9:02 PM by: INDIO POLLOCK Reason for Exam -> Chest Pain [id number] XR CHEST PORT [#[id number]] Priority: STAT Class: H ospital Performed Resulting Agency: [facility] Test ID: [id number] Reason for Exam -> Chest Pain Rele ased on: 08/16/2019 9:02 CjMaxwell MR#: [id number] * Rm: [id number] Ht: 5' 10" Wt: 280 lb Code: Prior Iso:Diagnosis:Allergies: No Known Allergies -------- Current as of: 08/16/192245 GI=Given IC=IV Complet ed NB=New Bag --aspirin (ASPIRIN) tablet 325 mg #[id number] Admin Amount: 1 Tab (1 x 325 mg Tab) Ordered Dose: 325 mg Route: Oral Freq: ONCE Start Date: 12/24/13 No administration times (back 96 hours, ahead 96 hours). ------diphenhydrAMINE (BENADRYL) capsule 50 mg #[id number] Admin Amount: 1 Cap (1 x 50 mg Cap) Ordered Dose: 50 mg Route: Ora l Freq: NOW Start Date: 12/24/13 No administration times (back 96 hours, ahe ad 96 hours). ------diazepam (VALIUM) tablet 5 mg #[id number] Admin Amount: 1 Tab (1 x 5 mg Tab) Ordered Dose: 5 mg Route: Oral Freq: ON CE Start Date: 12/24/13 No administration times (back 96 hours, ahead 96 hours). ------lidocaine (XYLOCAINE) 10 mg/mL (1 %) injection 1-30 mL #[id number] Admin Amount: 1-30 mL Ordered Dose: 1-30 mL Route: IntraDERMal Freq: ONCE Start Date: 12/24/13 No administration times (back 96 hours, ahead 96 hours). ------heparin (PF) 2 units/ml in NS infusion 2,000 Units #[id number] Admin Amount: 1,000 mL = 2,000 Units of 2 Units/mL Ordered Dose: 1,000 mL [place]: Irrigation Freq: ONCE Start Date: 12/24/13 No administration times (back 96 hours, ahead 96 hours). ------heparinized saline 2 units/mL infusion 1,000 Units #[id number] Admin Amount: 500 mL = 1,000 Units of 2 Units/mL Ordered Dose: 500 mL [place]: IntraarTERial Freq: ONCE Start Date: 12/24/13 No administration times (back 96 hours, ahead 96 hours). ------0.9% sodium chloride infusion #[id number] Ordered Dose: 75 mL/hr Route: IntraVENous Freq: CONTINUOUS Start Date: 12/24/13 Rate: 75 mL/hr Duration: No administration times (back 96 hours, ahead 96 hours). ------ioversol (OPTIRAY) 320 mg iodine/mL contrast injection 1-100 mL #[id number] Admin Amount: 1-100 mL Ordered Dose: 1-100 mL Route: IntraVENous Freq: RAD O NCE Start Date: 12/24/13 No administration times (back 96 hours, ahead 96 hours).Maxwell Bray MR#: [id number] * Rm: [id number]: 5' 10" Wt: 280 lb Co de: Prior Iso:Diagnosis:Allergies: No Known Allergies -------- Current as of: 08/16/192245 GI=Given IC=IV Complet ed NB=New Bag --gadobutrol (GADAVIST) contrast solution 1-10 mL #[id number] Admin Amount: 1-10 mL Ordered Dose: 1-10 mL Route: IntraVENous Freq: RAD O NCE Start Date: 01/13/14 No administration times (back 96 hours, ahead 96 hours). ------sodium chloride (NS) flush 5-10 mL #[id number] Admin Amount: 5-10 mL Ordered Dose: 5-10 mL Route: IntraVENous Freq: RAD ONCE Start Date: 01/13/14 No administration times (back 96 hours, ahead 96 hours). ------sodium chloride (NS) 0.9 % flush #[id number] Ordered Dose: Route: Freq: Start Date: 01/13 No administration times (back 96 hours, ahead 96 hours). ------morphine injection 2 mg #[id number] Admin Amount: 1 mL = 2 mg of 2 mg/mL Ordered Dose: 2 mg Route: IntraVENous Freq: NOW Start Date: 03/13/15 No administration times (back 96 hours, ahe ad 96 hours). ------influenza vaccine (4 yr+)(PF) (FLUCELVAX QUAD) inj ection 0.5*#[id number] Admin Amount: 0.5 mL Ordered Dose: 0.5 mL Route: IntraMUSCular Freq: PRIOR TO DISCHARGE Start Date: 03/30/16 No administration times (back 96 hours, ahead 96 hours). ------oxyCODONE-acetaminophen (PERCOCET) 5-325 mg per tablet 1 Tab #[id number] Admin Amount: 1 Tab Ordered Dose: 1 Tab Route: Oral Freq: NOW Start Date: 09/07/17 No administration times (back 96 hours, ahead 96 hours). ------barium sulfate (READICAT) 2.1 % (w/v), 2.0 % (w /w) oral suspension 9*#[id number] Admin Amount: 900 mL Ordered Dose: 900 mL Route: Oral Delgado q: RAD ONCE Start Date: 10/15/17 No administration times (back 96 hours, ahead 96 hours). ------iopamidol (ISOVUE 300) 61 % contrast injection 100 mL #[id number] Admin Amount: 100 mL Ordered Dose: 100 mL Route: IntraVENous Freq: RAD ONC E Start Date: 10/15/17 No administration times (back 96 hours, ahead 96 hours).Maxwell Bray MR#: [id number] * Rm: [id number]: 5' 10" Wt: 280 lb Code: Prior Iso:Diagnosis:Allergies: No Known Allergies -------- Current as of: 08/16/19 2091 GI=Given IC=IV Complet ed NB=New Bag --risperiDONE (RisperDAL m-tabs) disintegrating tablet 1 mg #[id number] Admin Amount: 1 Tab (1 x 1 mg Tab) Ordered Dose: 1 mg Route: Oral Freq: ONCE Start Date: 12/24/17 No administration times (back 96 hours, ahead 96 hours). ------ALPRAZolam (XANAX) tablet 2 mg #[id number] Admin Amount: 4 Tab (4 x 0.5 mg Tab) Ordered Dose: 2 mg Route: Ora l Freq: NOW Start Date: 12/24/17 No administration times (back 96 hours, ahe ad 96 hours). ------lamoTRIgine (LaMICtal) tablet 100 mg #[id number] Admin Amount: 1 Tab (1 x 100 mg Tab) Ordered Dose: 100 mg Route: Oral Delgado q: ONCE Start Date: 12/24/17 No administration times (back 96 hours, ahead 96 hours). ------OLANZapine (ZyPREXA zydis) disintegrating tablet 5 mg #[id number] Admin Amount: 1 Tab (1 x 5 mg Tab) Ordered Dose: 5 mg Route: Oral Delgado q: ONCE Start Date: 12/25/17 No administration times (back 96 hours, ahead 96 hours). ------LORazepam (ATIVAN) tablet 2 mg #[id number] Admin Amount: 4 Tab (4 x 0.5 mg Tab) Ordered Dose: 2 mg Route: Ora l Freq: NOW Start Date: 12/25/17 No administration times (back 96 hours, ahe ad 96 hours). ------LORazepam (ATIVAN) injection 1 mg #[id number] Admin Amount: 0.5 mL = 1 mg of 2 mg/mL Ordered Dose: 1 mg Route: Int raVENous Freq: NOW Start Date: 12/25/17 No administration times (back 96 hours, ahe ad 96 hours). ------barium sulfate (EZ PAQUE) 96 % (w/w) contrast suspension 17 6 g #[id number] Admin Amount: 176 g Ordered Dose: 176 g Route: Oral Freq: RAD ONCE Start Date: 08/02/18 No administration times (back 96 hours, ahead 96 hours). ------barium sulfate (EZ PAQUE) 96 % (w/w) contrast s uspension 176 g #[id number] Admin Amount: 176 g Ordered Dose: 176 g Route: Oral Delgado q: RAD ONCE Start Date: 08/02/18 No administration times (back 96 hours, ahead 96 hours).Luisito Maxwell donovan MR#: [id number] * Rm: [id number]: 5' 10" Wt: 280 lb Co de: Prior Iso:Diagnosis:Allergies: No Known Allergies -------- Current as of: 08/16/192245 GI=Given IC=IV Complet ed NB=New Bag --aspirin chewable tablet 162 mg #[id number] Admin Amount: 2 Tab (2 x 81 mg Tab) Ordered Dose: 162 mg Route: Oral Freq: NOW Start Date: 08/10/19 No administration times (back 96 hours, ahead 96 hours). ------famotidine (PF) (PEPCID) 20 mg in 0.9% sodium chloride 10 mL inje cti*#[id number] Admin Amount: 20 mg Ordered Dose: 20 mg Route: IntraVENous Freq: EVERY 12 H OURS Start Date: 08/16/19 Administration times (back 96 hours, ahead 96 hours): 08/16/19: 2119G I 08/17/19: 89908/18/19: 89908/19/19: 89908/20/19: 899 2099 ---0.9% sodium chloride infusion 1,000 mL #[id number] Admin Amount: 1,000 mL Ordered Dose: 1,000 mL Route: IntraVENous Freq: ONC E Start Date: 08/16/19 Rate: 1,000 mL/hr Duration: Administration times (back 96 hours, ahead 96 hours): 08/16/19: 9NB 2245IC -----methylPREDNISolone (PF) (Solu-MEDROL) injection 125 mg #[id number] Admin Amount: 2 mL = 125 mg of 125 mg/2 mL Ordered Dose: 125 mg Route: Int raVENous Freq: NOW Start Date: 08/16/19 Administration times (back 96 hours, ahe ad 96 hours): 08/16/19: 2119GI -----aspirin chewable tablet 162 mg #[id number] Admin Amount: 2 Tab (2 x 81 mg Tab) Ordered Dose: 162 mg Route: Oral Delgado q: NOW Start Date: 08/16/19 Administration times (back 96 hours, ahead 96 hours): 08/16/19: 2118GI ED Current OP MedicationsbuPROPion XL (WELLBUTRIN XL) 300 mg XL tabletSig:Take 300 mg by mouth every morning.Dispense Amount:Start Date:End Date:Doc. Provider : Paul Bradford MDlithium carbonate 150 mg capsuleSig:Take 300 mg by mouth three (3) times daily.Dispense [place] unt:Start Date:End Date:Doc. Provider: Paul Bradford MDpredniSONE (DELTASONE) 50 mg tabletSig:Take 1 Tab b y mouth daily for 3 days.Dispense Amount:3 TabStart Date:08/16/2019End Date:08/19/2019Doc. Provider: Javier Pollock NPVRAYLAR 6 mg capsuleSig:Take 6 mg by mouth daily.Dispense Amount:Start Date:07/07/2019End Date:Doc. Provider: Danilo Bustoscyclobenzaprine (FLEXERIL) 10 mg tabletSig:Take 1 Tab by mouth three (3) times daily as needed for Muscle Spasm(s).Dispense Amount:15 TabStart Date:07/21/2019End Date:Doc. Provider: Ritika Toledo MDvalACYclovir (VALTREX) 1 gram tabletSig:TAKE 1 TABLET BY MOUTH THREE TIMES A DAY FOR 10 DAYSDispe nse Amount:Start Date:07/17/2018End Date:Doc. Provider: Danilo BustosclonazePAM (KLONOPIN) 2 mg tab letSig:Take 2 mg by mouth daily.Dispense Amount:Start Date:End Date:Doc. Provider: Paul Bradford MDfluox etine HCl (PROZAC PO)Sig:Take 60 mg by mouth daily.Dispense Amount:Start Date:End Date:Doc. Provider : Paul Bradford MD ED PrescriptionspredniSONE (DELTASONE) 50 m g tabletSig:Take 1 Tab by mouth daily for 3 days.Dispense Amount:3 TabStart Date:08/16/2019End Date: 0Auth. Provider: Kivlehan, [place] M, NPFollow-up InformationFollow-up With:Ritika Canas M DDetails:In 2 daysComments:Contact Info:[address] [address]russell [phone]-up With:[facility] EM[facility]ENC[facility] DEPARTMENTDetails:Comments:As needed, If symptoms worsenContact Info:[address] hospital[address] [place] [phone] Name Value Range Interpretation Code Description Data Melani rce(s) Supporting Document(s ) ID Date Data Source [id number] 08/16/2019 10:45:45 PM EST [facility] IV site clean/dry/intact, gauze dressing applied. Pt received written and verbaldischarge instructions. Verbalize d understanding of same. Ambulated out of EDwith steady gait and in no distress. Name Value Range Interpretation Code Description Data Melani rce(s) Supporting Document(s ) ID Date Data Source [id number] 08/16/2019 09:58:14 PM EST [facility] Name Value Range Interpretation Description Data Sup porting Code Source(s) Document(s ) [place] 0.21 0.6-1.2 Below low normal [facility] [Moles/volu MMOL/L [facility]] in Hospital Serum or Plasma ID Date Data Source [id number] 08/16/2019 09:52:19 PM EST [facility] Name Value Range Interpretation Code Description Data Melani rce(s) Supporting Document(s ) Fibrin <500 [facility] D-dimer [facility] [[facility]] [facility] in Platelet poor plasma (NOTE)Combination of a D-Dimer result wi thin the reference range and a lowclinical pretest probability has good negative pr edictive value fordeep venous thrombosis.If results are utilized for VTE evaluation, <500 ng/ml is consideredto be negative. ID Date Data Source [id number] 08/16/2019 09:44:39 PM EST [facility] Name Value Range Interpretation Description Data Sup porting Code Source(s) Document(s ) Troponin 0.00-0.05 [facility] I.cardiac [facility] [Mass/volume Hospital ] in Serum or Plasma (NOTE)The presence of detectable troponi n above the reference rangeindicates myocardial injury which may be due to is chemia,myocarditis, trauma, etc. Clinical correlation is necessary todetermine the significance of this finding. Sequential testing isrecommended to determine if th e typical rise and fall of cTnI isdemonstrated. Note, cardiac troponin-I has a relatively longhalf-life and may be present well after the CK MB has returne d tobaseline. cTnI results in the indeterminate/benitez zone for myocardial infarction: 0.06 to 0.59 ng/mL cTnI cutoff/range of values consistent with m yocardial infarction: 0.60 to 1.50 ng/mL ID Date Data Source [id number] 08/16/2019 09:44:39 PM EST [facility] Name Value Range Interpretation Description Data Sup porting Code Source(s) Document(s ) Sodium 138 136-145 [facility] [Moles/volume] mmol/L [facility] in Serum or Hospital Plasma Potassium 3.4 3.5-5.1 Below low normal [facility] - [facility] [Moles/volume] mmol/L [facility] in Serum or Hospital Plasma Chloride 108 98-107 Above high normal [facility] [Moles/volume] mmol/L [facility] in Serum or Hospital Plasma Carbon 20 21-32 Below low normal [facility] dioxide, total mmol/L [facility] [Moles/volume] Hospital in Serum or Plasma Anion gap in 14 10-20 [facility] Serum or mmol/L [facility] Plasma Hospital Glucose 105 74-106 [facility] [Mass/volume] mg/dL [facility] in Serum or Hospital Plasma Urea nitrogen 20 mg/dL 7-18 Above high normal [facility] [Mass/volume] [facility] in Serum or Hospital Plasma Creatinine 0.90 0.70-1.3 [facility] [Mass/volume] mg/dL 0 [facility] in Serum or Hospital Plasma Glomerular >60 [facility] rate/1.73 sq M Hospital predicted among blacks [Volume Rate/Area] in Serum or Plasma by Creatinine-bas ed formula (MDRD) Glomerular >60 [facility] - [facility] filtration [facility] rate/1.73 sq M [facility] predicted among non-blacks [Volume Rate/Area] in Serum or Plasma by Creatinine-bas ed formula (MDRD) (NOTE)Estimated GFR is calculated using the Modification of Diet in RenalDisease (MDRD) Study equation, reported for both Americans(GFRAA) and non- Americans (GFRNA), and normalized to 1.7 9a7dvcv surface area. The physician must decide which value applies tothe patient . The MDRD study equation should only be used inindividuals age 18 or older. It has no t been validated for thefollowing: women, patients with serious comorbid co nditions,or on certain medications, or persons with extremes of body size,muscl e mass, or nutritional status. Calcium [Mass/volume] in 7.9 mg/dL 8.5-10.1 Below low normal [facility] - Good Serum or Plasma [facility] ital Bilirubin.total 0.3 mg/dL 0.2-1.0 [facility] - Good [Mass/volume] in Serum or [facility] Plasma Alanine aminotransferase 37 U/L 13-61 [facility] - Good [Enzymatic activity/volume] [facility] in Serum or Plasma Aspartate aminotransferase 22 U/L 15-37 [facility] HS - Good [Enzymatic activity/volume] [facility] in Serum or Plasma by With P-5'-P Alkaline phosphatase 98 U/L 45-117 [facility] - G ood [Enzymatic activity/volume] [facility] in Serum or Plasma Protein [Mass/volume] in 7.0 g/dL 6.4-8.2 [facility] - Good Serum or Plasma [facility] ital Albumin [Mass/volume] in 3.7 g/dL 3.5-4.7 [facility] - Good Serum or Plasma by [facility] ospital Bromocresol purple (BCP) dye binding method Globulin [Mass/volume] in 3.3 g/dL 1.7-4.7 [facility] - Good Serum by calculation [facility] Albumin/Globulin [Mass 1.1 0.7-2.8 [facility] - Good Ratio] in Serum or Plasma [facility] ID Date Data Source [id number] 08/16/2019 09:44:39 PM EST [facility] Name Value Range Interpretation Description Data Sup porting Code Source(s) Document(s ) Magnesium 2.3 mg/dL 1.6-2.6 [facility] - Good [Mass/volume] [facility] in Serum or Hospital Plasma ID Date Data Source [id number] 08/16/2019 09:23:23 PM EST [facility] - Good [facility] Name Value Range Interpretation Description Data Sup porting Code Source(s) Document(s ) Leukocytes 7.6 K/uL 4.8-10.6 [facility] - [#/volume] in Good Blood by [facility] Automated count Hospital Erythrocytes 4.97 4.70-6.0 [facility] - [#/volume] in M/uL 0 Good Blood by [facility] Hemoglobin 15.2 14.0-18. [facility] - [Mass/volume] in g/dL 0 Good Blood [facility] Hematocrit 45.0 % 42.0-52. [facility] - [Volume 0 Good Fraction] of [facility] Blood by Hospital Automated count Erythrocyte mean 90.5 FL 81.0-94. [facility] - corpuscular 0 Good volume [Entitic [facility] volume] by Hospital Automated count Erythrocyte mean 30.6 PG 27.0-35. [facility] - corpuscular 0 Good hemoglobin [facility] [Entitic mass] [facility] by Automated count Erythrocyte mean 33.8 30.7-37. [facility] - corpuscular g/dL 3 Good hemoglobin [facility] [Mass/volume] by Automated count Erythrocyte 13.0 % 11.5-14. [facility] - distribution 0 Good width [Ratio] by [facility] count [facility] Platelets 183 K/uL 130-400 [facility] - [#/volume] in Good Blood by [facility] count [facility] Platelet mean 8.5 FL 9.2-11.8 Below low normal [facility] - volume [Entitic Good volume] in Blood [facility] by Automated Hospital count Nucleated 0.0 PER 0 [facility] - erythrocytes/100 100 WBC Good leukocytes [facility] [Ratio] in Blood [facility] Nucleated 0.00 0.0-0.01 [facility] - erythrocytes K/uL Good [#/volume] in [facility] Segmented 68 % 48.0-72. [facility] - neutrophils/100 0 Good leukocytes in [facility] Lymphocytes/100 19 % 18.0-40. [facility] - leukocytes in 0 [facility] Monocytes/100 7 % 2.0-12.0 [facility] - leukocytes in [facility] Eosinophils/100 5 % 0.0-7.0 [facility] - leukocytes in [facility] Basophils/100 1 % 0.0-3.0 [facility] - leukocytes in [facility] Immature 1 % 0-0.5 Above high normal [facility] - granulocytes/100 Good leukocytes in [facility] by [facility] Automated count Segmented 5.2 K/UL 2.3-7.6 [facility] - neutrophils Good [#/volume] in [facility] Lymphocytes 1.5 K/UL 0.9-4.2 [facility] - [#/volume] in [facility] Monocytes 0.6 K/UL 0.1-1.7 [facility] - [#/volume] in [facility] Eosinophils 0.3 K/UL 0.0-1.0 [facility] - [#/volume] in [facility] Basophils 0.0 K/UL 0.0-0.4 [facility] - [#/volume] in [facility] Immature 0.0 K/UL 0.0-0.17 [facility] - granulocytes Good [#/volume] in [facility] Automated count Differential [facility] - cell count [facility] method [facility] ID Date Data Source [id number] 08/16/2019 08:50:30 PM EST [facility] sudden onset of difficulty breathing and rash while eating faroese food, rashacross face and chest slightly raised, no vesicles, denies any chest pain deniesany itching at this time. Went to urgent care, recei nataliia benadryl 50 mg IMfrom EMS. Name Value Range Interpretation Code Description Data Melani rce(s) Supporting Document(s ) ID Date Data Source [id number] 08/11/2019 08:03:02 AM EST [facility] History:Chest pain. Shortness of breath. FINDINGS:A single frontal chest film dated 08/11/2019 was submitted for interpretati on.The study is compared to most recent prior study of 07/12/2018.The cardiac silhouett e is normal in size .The lungs are clear without evidenceof acute confluent infil trate or effusion. Mediastinal and hilar structures areunremarkable.IMPRESSION:No acute disease Signing date/time: 08/11/2019 8:03 AMSigned by: CLAIRE LUCIANO Name Value Range Interpretation Code Description Data [facility] Supporting Document(s ) ID Date Data Source [id number] 08/11/2019 04:22:[address] [facility] The history is provided by the patient a nd the spouse.11:36 PM: Maxwell Bray is a 49 y.o. male with psychiatric history ,m orbidobesity who presents to the ED c/o chest pain and shortness of breath onset 7:30 PM today while eating dinner. states patient appeared clammy at thetim e. Patient denies cough, fever, or any other constitutional symptoms. Patientdenies a history of diabetes, hypertension, or tobacco use. states patienttakes an tidepressants regularly including Vraylar and clonazepam. No othercomplaints at this t lydia.Dr. Canas (PCP)Past Medical History:Diagnosis Date Other unknown an d unspecified cause of morbidity or mortality cardiac cath at [facility] approx 6-8 months ag o Other unknown and unspecified cause of morbidity or mortality concussions Othe r unknown and unspecified cause of morbidity or mortality "periodic disorientation" Other unknown and unspecified cause of morbidity or mortality anxiety Psychiat rina disorderPast Surgical History:Procedure Laterality Date ABDOMEN SURGERY PROC UN LISTED gastric bypass 2009 HX GASTRIC BYPASS roue-en-y HX ORTHOPAEDIC 1985 aarthros copic knee surgery HX ORTHOPAEDIC 1990 broken footFamily History:Problem Relati on Age of Onset Diabetes Mother Heart Disease MotherSocial HistorySocioeconomi c History Marital status: Spouse name: Not on file Number of children: N ot on file Years of education: Not on file Highest education level: Not on fileOccu pational History Not on fileSocial Needs Financial resource strain: Not on file Food insecurity: Worry: Not on file Inability: Not on file Transportation n eeds: Medical: Not on file Non- medical: Not on fileTobacco Use Smoking status: Ness baez Smoker Smokeless tobacco: Never UsedSubstance and Sexual Activity Alcoh ol use: No Frequency: Never Drug use: No Sexual activity: NeverLifestyle Physica l activity: Days per week: Not on file Minutes per session: Not on file Stress : Not on fileRelationships Social connections: Talks on phone: Not on olivier e Gets together: Not on file Attends shinto service: Not on file 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 of club or organization: Not on file Attends meetings of clubs or organizatio ns: Not on file Relationship status: Not on file Intimate partner violence: Fear o f current or ex partner: Not on file Emotionally abused: Not on file Physica lly abused: Not on file Forced sexual activity: Not on fileOther Topics Concer n Not on fileSocial History Narrative Not on fileALLERGIES: Patient has no known a llergies.Review of SystemsConstitutional: Negative for chills and fever.HENT: Nega tive for rhinorrhea and sore throat.Eyes: Negative for photophobia and visual dist urbance.Respiratory: Positive for shortness of breath. Negative for cough.Cardiovasc ular: Positive for chest pain. Negative for leg swelling.Gastrointestinal: Negative for abdominal pain, diarrhea, nausea and vomiting.Genitourinary: Negative for dys uria and hematuria.Musculoskeletal: Negative for back pain and myalgias.Skin: Negativ e for color change and pallor.Neurological: Negative for seizures and syncope.Vitals : 08/10/19 2215 08/11/19 0016BP: 114/71Pulse: (!) 102Resp: 24Temp: 98.1 F (36.7 C)Sp O2: 94% 100%Weight: 127 kg (280 lb)Height: 5' 10" (1.778 m)12:16 AM Pulse Oximetry frantz siegel is 100% on room air, which indicates normaloxygenation per Mayank Quezada M D.Physical ExamVitals signs and nursing note reviewed.Constitutional: General: He i s not in acute distress. Appearance: He is well-developed. Comments: Morbidly obe se.HENT: Head: Normocephalic and atraumatic.Eyes: Pupils: Pupils are eq ual, round, and reactive to light.Neck: Musculoskeletal: Neck supple. Vascular : No JVD.Cardiovascular: Rate and Rhythm: Normal rate and regular rhythm. Heart sounds: Normal heart sounds.Pulmonary: Effort: Pulmonary effort is normal. No r espiratory distress. Breath sounds: Normal breath sounds. No wheezing or rales.Abdo elliot: General: Bowel sounds are normal. There is no distension. Palpations: Ab domen is soft. Tenderness: There is no abdominal tenderness. There is no guardi ng orrebound.Musculoskeletal: Normal range of motion. General: No tenderness.Skin: General: Skin is warm and dry.Neurological: Mental Status: He is alert and oriented to person, place, and time.MDMNumber of Diagnoses or Management OptionsDyspnea, unspecified type:Amount and/or Complexity of Data ReviewedClinical lab tests: ordered and reviewedTests in the radiology section of CPT : ordered and reviewedDecide to o btain previous medical records or to obtain history from someoneother than the patie nt: yesObtain history from someone other than the patient: yesReview and summarize pas t medical records: yesIndependent visualization of images, tracings, or sp ecimens: yesProSaul Monahan Priti V, MD, reviewed the patient's past history, all ergies and homemedications as documented in the nursing chart.Labs:Recent Results (f rom the past 12 hour(s))EKG, 12 LEAD, INITIAL Collection Time: 08/10/19 10:14 PMResult Value Ref Range Ventricular Rate 102 BPM Atrial Rate 102 BPM P-R Interval 182 ms QRS Duration 88 ms Q-T Interval 334 ms QTC Calculation (Bezet) 435 ms Calculated P Parkman 55 degrees Calculated R Parkman 34 degrees Calculated T Parkman 9 degrees Diagnosis S inus tachycardiaOtherwise normal ECGNo previous ECGs availableMETABOLIC PANEL, COMPREHENSIVE Collection Time: 08/11/19 12:01 AMResult Value Ref Range Sodium 140 136 - 145 mmol/L Potassium 3.9 3.5 - 5.1 mmol/L Chloride 113 (H) 98 - 107 mmol/L CO2 21 21 - 32 mmol/L Anion gap 10 10 - 20 mmol/L Glucose 90 74 - 106 mg/dL BUN 18 7 - 18 mg/dL Creatinine 0.78 0.70 - 1.30 mg/dL GFR est AA >60 >60 ml/min/1.73m2 GFR est non -AA >60 >60 ml/min/1.73m2 Calcium 7.9 (L) 8.5 - 10.1 mg/dL Bilirubin, total 0.5 0.2 - 1.0 mg/dL ALT (SGPT) 29 13 - 61 U/L AST (SGOT) 18 15 - 37 U/L Alk. phosphatase 9 8 45 - 117 U/L Protein, total 6.7 6.4 - 8.2 g/dL Albumin 3.4 (L) 3.5 - 4.7 g/dL Glob ulin 3.3 1.7 - 4.7 g/dL A-G Ratio 1.1 0.7 - 2.8CBC WITH AUTOMATED DIFF Collection Ti me: 08/11/19 12:01 AMResult Value Ref Range WBC 7.7 4.8 - 10.6 K/uL RBC 4.93 4.70 - 6.00 M/uL HGB 14.9 14.0 - 18.0 g/dL HCT 44.4 42.0 - 52.0 % MCV 90.1 81.0 - 94.0 FL MC H 30.2 27.0 - 35.0 PG MCHC 33.6 30.7 - 37.3 g/dL RDW 12.5 11.5 - 14.0 % PLATELET 189 130 - 400 K/uL MPV 9.0 (L) 9.2 - 11.8 FL NRBC 0.0 0 PER 100 WBC ABSOLUTE NRBC 0.0 0 0.0 - 0.01 K/uL NEUTROPHILS 59 48.0 - 72.0 % LYMPHOCYTES 29 18.0 - 40.0 % MONOCYTES 7 2.0 - 12.0 % EOSINOPHILS 5 0.0 - 7.0 % BASOPHILS 1 0.0 - 3.0 % IMMATURE GRANULO CYTES 0 0 - 0.5 % ABS. NEUTROPHILS 4.6 2.3 - 7.6 K/UL ABS. LYMPHOCYTES 2.2 0.9 - 4.2 K/UL ABS. MONOCYTES 0.5 0.1 - 1.7 K/UL ABS. EOSINOPHILS 0.4 0.0 - 1.0 K/UL ABS. BASO PHILS 0.1 0.0 - 0.4 K/UL ABS. IMM. GRANS. 0.0 0.0 - 0.17 K/UL DF AUTOMATEDTROPONIN I C ollection Time: 08/11/19 12:01 AMResult Value Ref Range Troponin-I, Qt. <0.02 0.00 - 0 .05 NG/MLMAGNESIUM Collection Time: 08/11/19 12:01 AMResult Value Ref Range Magnesium 2.1 1.6 - 2.6 mg/dLBNP Collection Time: 08/11/19 12:01 AMResult Value Ref Range BNP 19 0 - 100 pg/mLD DIMER Collection Time: 08/11/19 12:01 AMResult Value Ref Range D-dimer <500 <500 ng/mL (FEU)LITHIUM Collection Time: 08/11/19 12:01 AMResult Value Ref Range [place] level <0.20 (L) 0.6 - 1.2 MMOL/LLACTIC ACID Collection Time: 08/11/19 12:01 AMResult Value Ref Range Lactic acid 1.7 0.4 - 2.0 MMOL/LINFLUENZ A A & B AG (RAPID TEST) Collection Time: 08/11/19 12:18 AMResult Value Ref Range Influenza A Ag NEGATIVE NEG Influenza B Ag NEGATIVE NEG Method IMMUNOCHROMATOGRAPH IC MEMBRANE ASSAY Comment Result: Negative for Influenza A and B Source NASOPHARYNG EALEKG: Sinus tachycardia at 102 BPM with Q waves in lead III and nonspecific STchan ges. Interpreted by Mayank Quezada MDCardiac monitor reading shows Sinus ta chycardia at 102 BPM. Interpreted byMayank Quezada MD.Radiology:chest X-ray demons trates no acute pathology. Interpreted by Mayank Quezada MD<EMERGENCY DEPARTMENT CASE SUMMARY>Impression/Differential Diagnosis: rule out sepsis and pericardi al effusion.ED Course:49 y.o. male presented to the ED c/o chest pain and shortness o f breath. Ordercardiac monitoring, EKG, CXR, and labs. Give aspirin 162mg.12:15 AM - Ordered blood culture and lactic acid level.Labs and radiology reviewed.1:22 A M - Patient was reassessed prior to discharge. Patient's symptomsImproved. I personally discussed discharge plan with patient/guardian, whounderstands instruc tions. All questions were answered. Patient/guardian advisedto follow up wit h PMD and/or specialist. Patient/guardian instructed to returnto the ER if symptom s persist, change or worsen. Patient agrees with plan.Final Impression/Diagnosis:Enc ounter Diagnoses ICD-10-CM ICD-9-CM1. Dyspnea, unspecified type R06.00 786.09P atient condition at time of disposition: StableI have reviewed the following home medications:Prior to Admission medicationsMedication Sig Start Date End Date Taking? Authorizing ProviderVRAYLAR 6 mg capsule 07/07/19 Provider, [place] alcyclobenzaprine (FLEXERIL) 10 mg tablet Take 1 Tab by mouth three (3) timesdaily as needed for Muscle Spasm(s). 07/21/19 Ritika Canas MDvalACYclovir (VALTREX) 1 gram tablet TAKE 1 TABLET BY MOUTH THREE TIMES A DAYFOR 10 DAYS 07/17/18 Provide r, HistoricalclonazePAM (KLONOPIN) 2 mg tablet Take 2 mg by mouth two (2) times a day.Other, MD Paulfluoxetine HCl (PROZAC PO) Take 60 mg by mouth daily. Other, Zoe Miller Priti V, MD IMarcy, am serving as a scribe to document servi jaxon personallyperformed by Mayank Quezada MD based on my observation and the provi mariano'sstatements to me.I, Mayank Quezada MD, attest that the person(s) noted above, a cting as myscribe(s) noted above, has observed my performance of the services and hasdocumented them in accordance with my direction. I have personally reviewed th eabove information and have ordered and reviewed the diagnostic studies, unlesso therwise noted. Name Value Range Interpretation Code Description Data Melani rce(s) Supporting Document(s ) ID Date Data Source [id number] 08/11/2019 01:42:54 AM EST [facility] [id number] [facility] EMERGENCY DEPARTMENT [address] [place] [facility] [address] [phone]/ [place] Maxwell mcleod (Male) [phone] JOSE 2 ED Dispo:DISCHARGE Chief Complaint: Chest Pain, Shortne ss of Breath Diagnosis: Dyspnea, unspecified type [] Current Providers: Atte nding: Javier Quezada Primary Nurse: ELIS WilsonN: [id number] [phone] Print [employer] p [phone] - Bshsi [employer] Medva MrnMRN: [id number] Print Group [phone] - Bs hsi [employer] Medva Age SexDOB 1970 AGE 49 SEX Male Primary Care Provider: Ritika Canas MD Phone: [phone]: (No Known Allergies)Date Reviewed: 08/10/2019Reviewed by: Chiquis Christianson CompleteED Provider Notes: No notes of this type exist for this encounter.ED Orders [id number] E KG, 12 LEAD, INITIAL [#[id number]] Priority: STAT Class: Hospital Performed Stand ing Order Information Remaining Occurrences:0/1 Interval:ONE TIME Last released:0 08/10/2019 Released orders: [place] Aug 10, 2019 10:17 PM by: CHIQUIS CHRISTIANSON Reason for Exam: -> CP SOB [id number] EKG, 12 LEAD, INITIAL [#[id number]] Priority: STAT Class: Hospital Performed Specimen Collected: 08/10/2019 10:14 PM Resulting Agency: [facility] Test ID: [id number] Reason for Exam: -> CP SOB Released on: 08/10/2019 10:17 PM [id number] EKG, 12 LE AD, INITIAL [#[id number]] Priority: STAT Class: Hospital Performed Standing Or mariano Information Remaining Occurrences:0/1 Interval:ONE TIME Last released:0 08/10/2019 Released orders: [place] Aug 10, 2019 11:51 PM by: BORKER, MAYANK V Reason fo r Exam: -> Chest Pain [id number] EKG, 12 LEAD, INITIAL [#[id number]] Priority: STAT C lass: Hospital Performed Resulting Agency: [facility] Test ID: [id number] Reason for Exam: -> Chest P ain Released on: 08/10/2019 11:51 PM [id number] [employer] OPERATIONS AGENT - ED ONLY [#[id number]] Priority: STAT Class: Hospital Performed Standing Order Information Remaining Occurre nces:0/1 Interval:Continuous Last released:08/10/2019 Released orders : [place] Aug 10, 2019 11:51 PM by: MAYANK QUEZADA V Type: -> Bedside [id number] PULSE OXIMETR Y CONTINUOUS [#[id number]] Priority: STAT Class: Hospital Performed Standing Or mariano Information Remaining Occurrences:0/1 Interval:CONTINUOUS Last released :08/10/2019 Released orders: [place] Aug 10, 2019 11:51 PM by: MAYANK QUEZADA V [id number] PULSE OXIMETRY SPOT CHECK [#[id number]] Priority: STAT Class: Hospital Performe d Standing Order Information Remaining Occurrences:0/1 Interval:ONE TIME Last r eleased:08/10/2019 Released orders: [place] Aug 10, 2019 11:51 PM by: MAYANK QUEZADA V NU [id number] OBTAIN OLD EKG [#[id number]] Priority: Routine Class: Hospital Perfo rmed Standing Order Information Remaining Occurrences:0/1 Interval:ONE TI ME Last released:08/10/2019 Released orders: [place] Aug 10, 2019 11:51 PM by: MAYANK QUEZADA V [id number] [employer] EX[employer] OPERATIONS AGENT - ED ONLY [#[id number]] Priority: STAT Class: H ospital Performed Type: -> Bedside Released on: 08/10/2019 11:51 PM [id number] PULSE OXIM ETRY CONTINUOUS [#[id number]] Priority: STAT Class: Hospital Performed Released on : 08/10/2019 11:51 PM [id number] PULSE OXIMETRY SPOT CHECK [#[id number]] Priority: STAT C lass: Hospital Performed Released on: 08/10/2019 11:51 PM [id number] OBTAIN OLD EKG [#[id number]] Priority: STAT Class: Hospital Performed Released on: 08/10/2019 11: 51 PM [id number] RT--OXYGEN CANNULA [#[id number]] Priority: STAT Class: H ospital Performed Standing Order Information Remaining Occurrences:0/1 Interval:CONTIN UOUS Last released:08/10/2019 Released orders: [place] Aug 10, 2019 11:51 PM by: MAYANK PRADO V Comment:TITRATE UP TO 4 L / MINUTE TO MAINTAIN O2 SATS GREATER THAN OR EQUAL TO 94% LPM -> 2 Indications for O2? -> CHEST PAIN [id number] RT--OXYGEN CANNULA [#[id number]] Priority: STAT Class: Hospital Performed Comment:TITRATE UP TO 4 L / MINUTE TO MAINTAIN O2 SATS GREATER THAN OR EQUAL TO 94% LPM -> 2 Indications fo r O2? -> CHEST PAIN Released on: 08/10/2019 11:51 PM [id number] DIET NPO [#[id number]] Priority: STAT Class: Hospital Performed Standing Order Information Remaining Occurrences:0/1 Interval:DIET EFFECTIVE NOW Last released:08/10 Released orders: [place] Aug 10, 2019 11:51 PM by: MAYANK QUEZADA V NPO options: - > With Meds [id number] DIET NPO [#[id number]] Priority: STAT Class: H ospital Performed NPO options: -> With Meds Released on: 08/10/2019 11:51 PM [id number] SALINE LOCK IV [#[id number]] Priority: STAT Class: Hospital Performed Standing O rder Information Remaining Occurrences:0/1 Interval:ONE TIME Last released:0 08/10/2019 Released orders: [place] Aug 10, 2019 11:51 PM by: MAYANK QUEZADA V [id number] SALI NE LOCK IV [#[id number]] Priority: STAT Class: Hospital Performed Relea sed on: 08/10/2019 11:51 PM [id number] METABOLIC PANEL, COMPREHENSIVE [#[id number]] Bridgette ority: STAT Class: ER Collect Standing Order Information Remaining Occurrences:0/1 In terval:ONE TIME Last released:08/10/2019 Released orders: [place] Aug 10, 2019 11:51 PM by: MAYANK QUEZADA V [id number] CBC WITH AUTOMATED DIFF [#[id number]] Priority: STAT Class: ER Collect Standing Order Information Remaining Occurrences:0/1 Inter haile:ONE TIME Last released:08/10/2019 Released orders: [place] Aug 10, 2019 11:51 PM by: MAYANK QUEZADA V [id number] TROPONIN I [#[id number]] Priority: STAT Class: ER Collect Standing Order Information Remaining Occurrences:0/1 Inter haile:ONE TIME Last released:08/10/2019 Released orders: [place] Aug 10, 2019 11:51 PM by: MAYANK QUEZADA V [id number] MAGNESIUM [#[id number]] Priority: STAT Class: ER Collect Standing Order Information Remaining Occurrences:0/1 Inter haile:ONE TIME Last released:08/10/2019 Released orders: [place] Aug 10, 2019 11:51 PM by: MAYANK QUEZADA V [id number] BNP [#[id number]] Priority: STAT Class: ER Collect Standing Order Information Remaining Occurrences:0/1 Inter haile:ONE TIME Last released:08/10/2019 Released orders: [place] Aug 10, 2019 11:51 PM by: MAYANK QUEZADA V [id number] D DIMER [#[id number]] Priority: STAT Class: ER Collect Standing Order Information Remaining Occurrences:0/1 Inter haile:ONE TIME Last released:08/10/2019 Released orders: [place] Aug 10, 2019 11:51 PM by: MAYANK QUEZADA V [id number] PROTHROMBIN TIME + INR [#[id number]] Priority: STAT Class: ER Collect Standing Order Information Remaining Occurrences:0/1 Inter haile:ONE TIME Last released:08/10/2019 Released orders: [place] Aug 10, 2019 11:51 PM by: MAYANK QUEZADA V [id number] PTT [#[id number]] Priority: STAT Class: ER Collect Specimen Source: Blood Standing Order Information Remaining Occurrences:0 /1 Interval:ONE TIME Last released:08/10/2019 Released orders: [place] Aug 10, 2019 11:51 PM by: MAYANK QUEZADA V [id number] LITHIUM [#[id number]] Pr iority: STAT Class: ER Collect Standing Order Information Remaining Occurrences:0/1 I nterval:ONE TIME Last released:08/10/2019 Released orders: [place] Aug 10, 2019 11:51 PM by: MAYANK QUEZADA V [id number] METABOLIC PANEL, COMPREHENSIVE [#[id number]] Bridgette ority: STAT Class: ER Collect Specimen Source: Plasma Specimen Collected: 08/11/2019 12:01 AM Resulting Agency: [facility] Test ID: MPL Released on: 08/10/2019 11:51 PM [id number] CBC WITH AUTOMATED DIFF [#[id number]] Priority: STAT Class: E R Collect Specimen Source: Whole Blood Specimen Collected: 08/11/2019 12:01 AM Resulting Agency: [facility] Test ID: [id number] Released on: 08/10/2019 11:51 PM [id number] TROPON IN I [#[id number]] Priority: STAT Class: ER Collect Specimen Source: [place] sma Specimen Collected: 08/11/2019 12:01 AM Resulting Agency: [facility] RY Test ID: [id number] Released on: 08/10/2019 11:51 PM [id number] MAGNESIUM [#[id number]] Priority: STAT Class: ER Collect Specimen Source: Plasma Specimen Collec hyun: 08/11/2019 12:01 AM Resulting Agency: [facility] Test ID: [id number] Re leased on: 08/10/2019 11:51 PM [id number] BNP [#[id number]] Priority : STAT Class: ER Collect Specimen Source: Plasma Specimen Collected: 08/11/2019 12:01 AM Resultin g Agency: [facility] Test ID: BNPPB Released on: 08/10/2019 11:51 PM [id number] 74 D DIMER [#[id number]] Priority: STAT Class: ER Collect Speci men Source: Plasma Specimen Collected: 08/11/2019 12:01 AM Resulting Agency: [facility] Test ID: [id number] Released on: 08/10/2019 11:51 PM [id number] PROTHROMBIN TIME + INR [#[id number]] Priority: STAT Class: ER Collect Specimen Source: Plasma Specimen Collec hyun: 08/11/2019 12:01 AM Resulting Agency: [facility] Test ID: APTHR R eleased on: 08/10/2019 11:51 PM [id number] PTT [#[id number]] Priorit y: STAT Class: ER Collect Specimen Source: Plasma Specimen Collected: 08/11/2019 12:01 AM Resultin g Agency: [facility] Test ID: APTT Released on: 08/10/2019 11:51 PM [id number] LITHIUM [#[id number]] Priority: STAT Class: ER Collect Speci men Source: Serum Specimen Collected: 08/11/2019 12:01 AM Resulting Agency: [facility] Test ID: LI Released on: 08/10/2019 11:51 PM [id number] LACTIC ACID [#[id number]] Priority: STAT Class: ER Collect Standing Order Information Remainin g Occurrences:0/1 Interval:ONE TIME Last released:08/11/2019 Released orders : SunAug 11, 2019 12:15 AM by: KATI WILSON [id number] LACTIC ACID [#[id number]] Priority: STAT Class: ER Collect Specimen Source: Plasma Specimen Collec hyun: 08/11/2019 12:01 AM Resulting Agency: [facility] Test ID: LAC Rel eased on: 08/11/2019 12:15 AM ASPIRIN 81 MG CHEWABLE TAB [#[id number]] Priority: STAT Class: Normal [id number] XR CHEST PORT [#[id number]] Priority: STAT Cl ass: Hospital Performed Standing Order Information Remaining Occurrences:0/1 Inter haile:ONE TIME Last released:08/10/2019 Released orders: Sun Aug 10, 2019 11:51 PM by: MAYANK QUEZADA V Reason for Exam -> Chest Pain [id number] XR CHEST PORT [#[id number]] Priority: STAT Class: Hospital Performed Resulting Agency: [facility] Test ID: [id number] Reason for Exam -> Chest Pain Released on: 08/10/2019 11:51 PM [id number] INFLUENZA A & B AG (RAPID TEST) [#[id number]] Priority: STAT Class: ER Collect Sta nding Order Information Remaining Occurrences:0/1 Interval:ONE TIME Last released: 08/10/2019 Released orders: Sun Aug 10, 2019 11:51 PM by: MAYANK QUEZADA V [id number] INFL UENZA A & B AG (RAPID TEST) [#[id number]] Priority: STAT Class: ER Collect Specimen Source : Nasal washing Specimen Collected: 08/11/2019 12:18 AM Resulting Agency: [facility] Test ID: INFLUA Released on: 08/10/2019 11:51 PM [id number] CULTURE, BLOOD [#[id number]] Priority: STAT Class: ER Collect Specimen Source: Blood Standing Order Information Remaining Occurrences:0/1 Interval:ONE TIME Last released:0 08/11/2019 Released orders: SunAug 11, 2019 12:15 AM by: KATI WILSON [id number] CULTU RE, BLOOD [#[id number]] Priority: STAT Class: ER Collect Specimen Source : Blood Standing Order Information Remaining Occurrences:0/1 Interval:ONE TI ME Last released:08/11/2019 Released orders: Mon Aug 11, 2019 12:15 AM by: KATI WILSON [id number] CULTURE, BLOOD [#[id number]] Priority: STAT Class: E R Collect Specimen Source: Blood Specimen Collected: 08/11/2019 12:33 AM Resulting Agency: [facility] Test ID: HBCS Released on: 08/11/2019 12:15 AM [id number] CULTUR E, BLOOD [#[id number]] Priority: STAT Class: ER Collect Specimen Source: Blo od Specimen Collected: 08/11/2019 12:43 AM Resulting Agency: [facility] Test ID: HBCS Released on: 08/11/2019 12:15 AMMaxwell Bray MR#: [id number] Acct#: [id number]* Rm: [id number]: 5' 10" Wt: 280 lb Code: Prior Iso:Diagnosis:Allergies: No Kno wn Allergies -------- Current as of: 08/11/192 GI=Given -------aspirin (ASPIRIN) tablet 325 mg #[id number] Admin Amount: 1 Tab (1 x 325 mg Tab) Ordered Dose: 325 mg Route: Oral Freq: ONCE Start Date: 12/24/13 No administration times (b ack 96 hours, ahead 96 hours). ------diphenhydrAMINE (BENADRYL) capsule 50 mg #[id number] Admin Amount: 1 Cap (1 x 50 mg Cap) Ordered Dose: 50 mg [place]: Oral Freq: NOW Start Date: 12/24/13 No administration times (back 96 hours, ahead 96 hours). ------diazepam (VALIUM) tablet 5 mg #[id number] Admin Amount: 1 Tab (1 x 5 mg Tab) Ordered Dose: 5 mg Route: Oral Freq: ONCE Start Date: 12/24/13 No administration times (back 96 hours, ahead 96 hours). ------lidocaine (XYLOCAINE) 10 mg/mL (1 %) injection 1-3 0 mL #[id number] Admin Amount: 1-30 mL Ordered Dose: 1-30 mL Route: Int raDERMal Freq: ONCE Start Date: 12/24/13 No administration times (back 96 hours, ahead 96 hours). ------heparin (PF) 2 units/ml in NS infusion 2,000 Units #[id number] Admin Amount: 1,000 mL = 2,000 Units of 2 Units/mL Ordered Dose: 1,000 mL Route: Irrigation Freq: ONCE Start Date: 12/24/13 No administration times (back 96 hours, ahead 96 hours). ------heparinized saline 2 units/mL infusion 1,000 Units #[id number] Admin Amount: 500 mL = 1,000 Units of 2 Units/mL Ordered Dose: 500 m L Route: IntraarTERial Freq: ONCE Start Date: 12/24/13 No admini stration times (back 96 hours, ahead 96 hours). ------0.9% sodium chloride infusion #[id number] Ordered Dose: 75 mL/hr Route: IntraVENous Freq: CONTINUOUS Start Date: 12/24/13 Rate: 75 mL/hr Duration: No administration ti mes (back 96 hours, ahead 96 hours). ------ioversol (OPTIRAY) 320 mg iodine/mL contrast inje ction 1-100 mL #[id number] Admin Amount: 1-100 mL Ordered Dose: 1-100 mL [place]: IntraVENous Freq: RAD ONCE Start Date: 12/24/13 No administration times (back 96 hours, ahead 96 hours).Maxwell Bray MR#: [id number] * Rm: [id number] Ht: 5' 10" Wt: 280 lb Code: Prior Iso:Diagnosis:Allergies: No Known Allergies -------- Current as of: 08/11/19141 GI=Given -------gadobutrol (GADAVIST) contrast solution 1-10 mL #[id number] Admin Amount: 1-10 mL Ordered Dose: 1-10 mL Route: Int raVENous Freq: RAD ONCE Start Date: 01/13/14 No administration times (back 96 hours, ahead 96 hours). ------sodium chloride (NS) flush 5-10 mL #[id number] Admin Amount: 5-10 mL Ordered Dose: 5-10 mL Route: IntraVENo us Freq: RAD ONCE Start Date: 01/13/14 No administration times (back 96 hours, ahe ad 96 hours). ------sodium chloride (NS) 0.9 % flush #[id number] Ordered Dose: Route: Freq: Start Date: 01/13/14 No administration times (back 96 hours, ahead 96 hours). ------morphine injection 2 mg #[id number] Admin Amount: 1 mL = 2 mg of 2 mg/mL Ordered Dose: 2 mg Route: IntraVENous Freq: NOW Start Date: 03/13/15 No administration t imes (back 96 hours, ahead 96 hours). ------influenza vaccine (4 yr+)(PF) (FLUCELVAX Q UAD) injection 0.5*#[id number] Admin Amount: 0.5 mL Ordered Dose: 0.5 mL Route: Int raMUSCular Freq: PRIOR TO DISCHARGE Start Date: 03/30/16 No administration times (back 9 6 hours, ahead 96 hours). ------oxyCODONE-acetam inophen (PERCOCET) 5-325 mg per tablet 1 Tab #[id number] Admin Amount: 1 Tab Ordered Dose: 1 Tab Route: Oral Freq: NOW Start Date: 09/07/17 No administration times (back 96 hours, ahe ad 96 hours). ------barium sulfate (READICAT) 2.1 % (w/v), 2.0 % (w/w) oral suspension 9*#[id number] Admin Amount: 900 mL Ordered Dose: 900 mL Route: Oral [place] q: RAD ONCE Start Date: 10/15/17 No administration times (back 96 hours, ahe ad 96 hours). ------iopamidol (ISOVUE 300) 61 % contrast injection 100 mL #[id number] Admin Amount: 100 mL Ordered Dose: 100 mL Route: Int raVENous Freq: RAD ONCE Start Date: 10/15/17 No administration times (back 96 hours, ahead 96 hours).Maxwell Bray MR#: [id number] * Rm: [id number]: 5' 1 0" Wt: 280 lb Code: Prior Iso:Diagnosis:Allergies: No Known Allergies -------- Current as of: 08/11/19 0142 GI=Given -------risperiDONE (RisperDAL m-tabs) disintegrating tablet 1 mg #[id number] Admin Amount: 1 Tab (1 x 1 mg Tab) Ordered Dose: 1 mg Route: Oral Freq: ONCE Start Date: 12/24/17 No administration times (back 96 hours, ahead 96 hours). ------ALPRAZolam (XANAX) tablet 2 mg #[id number] Admin Amount: 4 Tab (4 x 0.5 mg Tab) Ordered Dose: 2 mg Route: Oral Freq: NOW Start Date: 12/24/17 No administration times (back 96 hours, ahead 96 hours). ------lamoTRIgine (LaMICtal) tablet 100 mg #[id number] Admin Amount: 1 Tab (1 x 100 mg Tab) Ordered Dose: 100 mg Route: Oral Freq: ONCE Start Date: 12/24/17 No administration times (back 96 hours, ahead 96 hours). ------OLANZapine (ZyPREXA zydis) disintegrating tablet 5 mg #[id number] Admin Amount: 1 Tab (1 x 5 mg Tab) Ordered Dose: 5 mg Route: Oral Freq: ONCE Start Date: 12/25/17 No administration times (back 96 hours, ahead 96 hours). ------LORazepam (ATIVAN) tablet 2 mg #[id number] Admin Amount: 4 Tab (4 x 0.5 mg Tab) Ordered Dose: 2 mg Route: Oral Freq: NOW Start Date: 12/25/17 No administration times (back 96 hours, ahead 96 hours). ------LORazepam (ATIVAN) injection 1 mg #[id number] Admin Amount: 0.5 mL = 1 mg of 2 mg/mL Ordered Dose: 1 mg Route: IntraVENous Freq: NOW Start Date: 12/25/17 No administration ti mes (back 96 hours, ahead 96 hours). ------barium sulfate (EZ PAQUE) 96 % (w/w) contrast suspensio n 176 g #[id number] Admin Amount: 176 g Ordered Dose: 176 g Route: Oral [place] q: RAD ONCE Start Date: 08/02/18 No administration times (back 96 hours, ahe ad 96 hours). ------barium sulfate (EZ PAQUE) 96 % (w/w) contrast suspensio n 176 g #[id number] Admin Amount: 176 g Ordered Dose: 176 g Route: Oral Delgado q: RAD ONCE Start Date: 08/02/18 No administration times (back 96 hours, ahe ad 96 hours).Maxwell Bray MR#: [id number] * Rm: [id number]: 5' 10" Wt: 280 lb Code: Prior Iso:Diagnosis:Allergies: No Known Allergies -------- Current as of: 08/11/19 0142 GI=Given -------aspirin chewable tablet 162 mg #[id number] Admin Amount: 2 Tab (2 x 81 mg Tab) Ordered Dose: 162 mg Route: Oral Freq: NOW Start Date: 08/10/19 Administration times (laura k 96 hours, ahead 96 hours): 08/11/19: 0020GI ED Current OP MedicationsVRAYL AR 6 mg capsuleSig:Dispense Amount:Start Date:07/07/2019End Date:Doc. Provider: Danilo Bustos cyclobenzaprine (FLEXERIL) 10 mg tabletSig:Take 1 Tab by mouth three (3) times daily as needed for Musc le Spasm(s).Dispense Amount:15 TabStart Date:07/21/2019End Date:Doc. Provider: Ritika Canas MDvalAC Yclovir (VALTREX) 1 gram tabletSig:TAKE 1 TABLET BY MOUTH THREE TIMES A DAY FOR 10 DAYSDispense Am ount:Start Date:07/17/2018End Date:Doc. Provider: Provider, DaniloclonazePAM (KLONOPIN) 2 mg tab letSig:Take 2 mg by mouth two (2) times a day.Dispense Amount:Start Date:End Date:Doc. Provider : Paul Bradford MDfluoxetine HCl (PROZAC PO)Sig:Take 60 mg by mouth daily.Dispense Amount:Start Date:E nd Date:Doc. Provider: Paul Bradford MD ED Prescriptions None on FileFollow-up InformationFollow-up With:Ritika Canas MDDetails:Schedule an appointment as soon as possible for a visit in 1 dayComments:Contact Info:[address] [facility] [phone] With:Detail s:Comments:As needed, If symptoms worsenContact Info: Name Value Range Interpretation Code Description Data Melani rce(s) Supporting Document(s ) ID Date Data Source [id number] 08/11/2019 01:40:37 AM EST [facility] I have reviewed discharge instructions w ith the patient and spouse. The patientand spouse verbalized understanding.\\ Name Value Range Interpretation Code Description Data Melani rce(s) Supporting Document(s ) ID Date Data Source [id number] 08/16/2019 06:35:29 AM EST [facility] Name Value Range Interpretation Description Data Sup porting Code Source(s) Document(s ) Service comment [facility] Bacteria [facility] - Good identified in [facility] specimen by Culture ID Date Data Source [id number] 08/16/2019 06:35:28 AM EST [facility] Name Value Range Interpretation Description Data Sup porting Code Source(s) Document(s ) Service comment [facility] Bacteria [facility] - Good identified in [facility] specimen by Culture ID Date Data Source [id number] 08/11/2019 12:56:01 AM EST [facility] Name Value Range Interpretation Description Data Sup porting Code Source(s) Document(s ) Influenza virus NEG [facility] A Ag [Presence] [facility] in Nasopharynx Hospital by Immunoassay Influenza virus NEG [facility] - Good B Ag [Presence] Judaism in [facility] by Immunoassay IMMUNOCHROMATOGRAPHIC MEMBRANE ASSAYResu lt: Negative for Influenza A and BNote: A negative result does not exclude an infl uenza virus infection, including H1N1. If more conclusive testing is desired, foll ow-up confirmatory testing is warranted. Specimen source [Identifier] of Unspecified [facility] specimen ID Date Data Source [id number] 08/11/2019 01:35:58 AM EST [facility] Name Value Range Interpretation Description Data Sup porting Code Source(s) Document(s ) Prothrombin 9.6 sec 9.4-11.1 [facility] - Good time (PT) [facility] INR in 0.9 0.8-1.2 [facility] - Good Platelet poor Judaism plasma by Hospital Coagulation assay ID Date Data Source [id number] 08/11/2019 01:35:58 AM EST [facility] Value Range Interpretation Description Data Sup porting Code Source(s) Document(s ) aPTT in 23.1 SEC 21.0-28. [facility] - Good Platelet poor 0 Judaism plasma by Hospital Coagulation assay Therapeutic Range = 42.0-60.0 secs ID Date Data Source [id number] 08/11/2019 01:30:36 AM EST [facility] Value Range Interpretation Description Data Sup porting Code Source(s) Document(s ) Natriuretic 19 pg/mL 0-100 [facility] - Good peptide B Judaism [Mass/volume] Hospital in Serum or Plasma ID Date Data Source [id number] 08/11/2019 01:25:10 AM EST [facility] Name Value Range Interpretation Code Description Data Supporting Source(s) Document(s ) [place] 0.6-1.2 Below low normal [facility] - Good [Moles/volum Judaism e] in Serum Hospital or Plasma ID Date Data Source [id number] 08/11/2019 01:20:56 AM [facility] Range Interpretation Code Description Data Melani rce(s) Supporting Document(s ) Fibrin <500 [facility] - Good D-dimer FEU Judaism [Mass/volume] [facility] in Platelet poor plasma (NOTE)Combination of a D-Dimer result wi thin the reference range and a lowclinical pretest probability has good negative pr edictive value fordeep venous thrombosis.If results are utilized for VTE evaluation, <500 ng/ml is consideredto be negative. ID Date Data Source [id number] 08/11/2019 01:09:42 AM [facility] Name Value Range Interpretation Description Data Sup porting Code Source(s) Document(s ) Lactate 1.7 0.4-2.0 [facility] - Good [Moles/volu MMOL/L [facility]] in Hospital Serum or Plasma ID Date Data Source [id number] 08/11/2019 01:09:42 AM [facility] Value Range Interpretation Description Data Sup porting Code Source(s) Document(s ) Troponin 0.00-0.05 [facility] - Good I.cardiac Judaism [[facility]/volume [facility] ] in Serum or Plasma (NOTE)The presence of detectable troponi n above the reference rangeindicates myocardial injury which may be due to is chemia,myocarditis, trauma, etc. Clinical correlation is necessary todetermine the significance of this finding. Sequential testing isrecommended to determine if th e typical rise and fall of cTnI isdemonstrated. Note, cardiac troponin-I has a relatively longhalf-life and may be present well after the CK MB has returne d tobaseline. cTnI results in the indeterminate/benitez zone for myocardial infarction: 0.06 to 0.59 ng/mL cTnI cutoff/range of values consistent with m yocardial infarction: 0.60 to 1.50 ng/mL ID Date Data Source [id number] 08/11/2019 01:09:42 AM EST [facility] Value Range Interpretation Description Data Sup porting Code Source(s) Document(s ) Sodium 140 136-145 [facility] - Good [Moles/volume] mmol/L [facility] in Serum or Hospital Plasma Potassium 3.9 3.5-5.1 [facility] - Good [Moles/volume] mmol/L [facility] in Serum or Hospital Plasma Chloride 113 98-107 Above high normal [facility] - Good [Moles/volume] mmol/L [facility] in Serum or Hospital Plasma Carbon 21 21-32 [facility] - Good dioxide, total mmol/L Judaism [Moles/volume] Hospital in Serum or Plasma Anion gap in 10 10-20 [facility] - Good Serum or mmol/L Judaism Plasma Hospital Glucose 90 mg/dL 74-106 [facility] - Good [Mass/volume] Judaism in Serum or Hospital Plasma Urea nitrogen 18 mg/dL 7-18 [facility] - Good [Mass/volume] Judaism in Serum or Hospital Plasma Creatinine 0.78 0.70-1.3 [facility] - Good [Mass/volume] mg/dL 0 Judaism in Serum or Hospital Plasma Glomerular >60 [facility] - Good filtration Judaism rate/1.73 sq M Hospital predicted among blacks [Volume Rate/Area] in Serum or Plasma by Creatinine-bas ed formula (MDRD) Glomerular >60 [facility] - Good filtration Judaism rate/1.73 sq M Hospital predicted among non-blacks [Volume Rate/Area] in Serum or Plasma by Creatinine-bas ed formula (MDRD) (NOTE)Estimated GFR is calculated using the Modification of Diet in RenalDisease (MDRD) Study equation, reported for both Americans(GFRAA) and non- Americans (GFRNA), and normalized to 1.7 [id number] surface area. The physician must decide which value applies tothe patient . The MDRD study equation should only be used inindividuals age 18 or older. It has no t been validated for thefollowing: women, patients with serious comorbid co nditions,or on certain medications, or persons with extremes of body size,muscl e mass, or nutritional status. Calcium [Mass/volume] in 7.9 mg/dL 8.5-10.1 Below low normal [facility] - Good Serum or Plasma [facility] ital Bilirubin.total 0.5 mg/dL 0.2-1.0 [facility] - Good [Mass/volume] in Serum or [facility] Plasma Alanine aminotransferase 29 U/L 13-61 [facility] - Good [Enzymatic activity/volume] [facility] in Serum or Plasma Aspartate aminotransferase 18 U/L 15-37 [facility] - Good [Enzymatic activity/volume] [facility] in Serum or Plasma by With P-5'-P Alkaline phosphatase 98 U/L 45-117 [facility] - G ood [Enzymatic activity/volume] [facility] in Serum or Plasma Protein [Mass/volume] in 6.7 g/dL 6.4-8.2 [facility] - Good Serum or Plasma [facility] ital Albumin [Mass/volume] in 3.4 g/dL 3.5-4.7 Below low normal [facility] - Good Serum or Plasma by [facility] ospital Bromocresol purple (BCP) dye binding method Globulin [Mass/volume] in 3.3 g/dL 1.7-4.7 [facility] - Good Serum by calculation [facility] Albumin/Globulin [Mass 1.1 0.7-2.8 [facility] - Good Ratio] in Serum or Plasma [facility] ID Date Data Source [id number] 08/11/2019 01:09:42 AM EST [facility] Name Value Range Interpretation Description Data Sup porting Code Source(s) Document(s ) Magnesium 2.1 mg/dL 1.6-2.6 [facility] - Good [Mass/volume] Judaism in Serum or [facility] Plasma ID Date Data Source [id number] 08/11/2019 01:01:18 AM EST [facility] Name Value Range Interpretation Description Data Sup porting Code Source(s) Document(s ) Leukocytes 7.7 K/uL 4.8-10.6 [facility] - [#/volume] in Good Blood by [facility] Erythrocytes 4.93 4.70-6.0 [facility] - [#/volume] in M/uL 0 Good Blood by [facility] Hemoglobin 14.9 14.0-18. [facility] - [Mass/volume] in g/dL 0 Good Blood [facility] Hematocrit 44.4 % 42.0-52. [facility] - [Volume 0 Good Fraction] of Judaism Blood by Hospital Automated count Erythrocyte mean 90.1 FL 81.0-94. [facility] - corpuscular 0 Good volume [Entitic Judaism volume] by Hospital Automated count Erythrocyte mean 30.2 PG 27.0-35. [facility] - corpuscular 0 Good hemoglobin Judaism [Entitic mass] Hospital by Automated count Erythrocyte mean 33.6 30.7-37. [facility] - corpuscular g/dL 3 Good hemoglobin [facility] Hospital [Mass/volume] by Automated count Erythrocyte 12.5 % 11.5-14. [facility] - distribution 0 Good width [Ratio] by Judaism Automated count Hospital Platelets 189 K/uL 130-400 [facility] - [#/volume] in Good Blood by [facility] Automated count Hospital Platelet mean 9.0 FL 9.2-11.8 Below low normal [facility] - volume [Entitic Good volume] in Blood [facility] by Automated Hospital count Nucleated 0.0 PER 0 [facility] - erythrocytes/100 100 WBC Good leukocytes Judaism [Ratio] in Blood [facility] Nucleated 0.00 0.0-0.01 [facility] - erythrocytes K/uL Good [#/volume] in [facility] Segmented 59 % 48.0-72. [facility] - neutrophils/100 0 Good leukocytes in [facility] Lymphocytes/100 29 % 18.0-40. [facility] - leukocytes in 0 [facility] Blood [facility] Monocytes/100 7 % 2.0-12.0 [facility] - leukocytes in [facility] Blood [facility] Eosinophils/100 5 % 0.0-7.0 [facility] - leukocytes in [facility] Basophils/100 1 % 0.0-3.0 [facility] - leukocytes in [facility] Immature 0 % 0-0.5 [facility] - granulocytes/100 Good leukocytes in [facility] Automated count Segmented 4.6 K/UL 2.3-7.6 [facility] - neutrophils Good [#/volume] in [facility] Lymphocytes 2.2 K/UL 0.9-4.2 [facility] - [#/volume] in [facility] Monocytes 0.5 K/UL 0.1-1.7 [facility] - [#/volume] in [facility] Eosinophils 0.4 K/UL 0.0-1.0 [facility] - [#/volume] in [facility] Basophils 0.1 K/UL 0.0-0.4 [facility] - [#/volume] in [facility] Immature 0.0 K/UL 0.0-0.17 [facility] - granulocytes Good [#/volume] in Judaism Blood by Hospital Automated count Differential [facility] - cell count Good method - Blood [facility] Procedure Social History Code Duration Value Status Description Data Source(s ) Alcohol intake 01/08/2020 Current completed Current [place] [facility] 12:00:00 AM EDT non-drinker non-drinker of [employer] alcohol (finding) [employer] (finding) Tobacco use and 01/08/2020 Never used completed Never used [place] [facility] exposure 12:00:00 AM EDT [employer] Smoking 01/08/2020 Never smoker completed Never smoker [place] [facility] 12:00:00 AM EDT [employer] Alcohol intake 12/25/2019 Current completed Current [place] [facility] 12:00:00 AM EDT non-drinker non-drinker of [employer] alcohol (finding) [employer] (finding) Tobacco use and 12/25/2019 Never used completed Never used [place] [facility] exposure 12:00:00 AM EDT [employer] Smoking 12/25/2019 Never smoker completed Never smoker [place] [facility] 12:00:00 AM EDT [employer] Alcohol intake 12/12/2019 Current completed Current [place] 12:00:00 AM EDT non-drinker non-drinker of [employer] alcohol (finding) [employer] (finding) Smoking 12/12/2019 Never smoker completed Never smoker [place] [facility] 12:00:00 AM EDT [employer] Alcohol intake 12/05/2019 Current completed Current [place] [facility] 12:00:00 AM EDT non-drinker non-drinker of [employer] alcohol (finding) [employer] (finding) Tobacco use and 12/05/2019 Never used completed Never used [place] [facility] exposure 12:00:00 AM EDT [employer] Smoking 12/05/2019 Never smoker completed Never smoker [place] [facility] 12:00:00 AM EDT [employer] Alcohol intake 12/01/2019 Current completed Current [place] [facility] 12:00:00 AM EDT non-drinker non-drinker of [facility] of alcohol alcohol (finding) [employer] (finding) Smoking 12/01/2019 Never smoker completed Never smoker [place] [facility] 12:00:00 AM EDT [employer] Alcohol intake 11/14/2019 Current completed Current [place] 12:00:00 AM EDT non-drinker non-drinker of [employer] of alcohol alcohol (finding) [employer] (finding) Smoking 11/14/2019 Never smoker completed Never smoker [place] [facility] 12:00:00 AM EDT [employer] Alcohol intake 11/10/2019 Current completed Current [place] 12:00:00 AM EDT non-drinker non-drinker of [employer] of alcohol alcohol (finding) [employer] (finding) Smoking 11/10/2019 Never smoker completed Never smoker [place] [facility] 12:00:00 AM EDT [employer] Alcohol intake 09/06/2019 Current completed Current [place] 12:00:00 AM EDT non-drinker non-drinker of [employer] of alcohol alcohol (finding) [employer] (finding) Smoking 09/06/2019 Never smoker completed Never smoker [place] [facility] 12:00:00 AM EDT [employer] [facility] [employer] Alcohol intake 08/16/2019 Current completed Current [facility] 12:00:00 AM EST non-drinker non-drinker of EDITION F [employer] of alcohol alcohol (finding) [employer] (finding) Smoking 08/16/2019 Never smoker completed Never smoker [place] [facility] 12:00:00 AM EST [employer] Alcohol intake 08/10/2019 Current completed Current [place] [facility] 12:00:00 AM EST non-drinker non-drinker of EDITION [employer] of alcohol alcohol (finding) [employer] (finding) Smoking 08/10/2019 Never smoker completed Never smoker [place] [facility] 12:00:00 AM EST [employer] Alcohol intake 07/21/2019 Current completed Current [place] [facility] 12:00:00 AM EST non-drinker non-drinker of EDITION [employer] of alcohol alcohol (finding) [employer] (finding) Smoking 07/21/2019 Never smoker completed Never smoker [place] [facility] 12:00:00 AM EST [employer] Smoking 07/29/2018 Never smoker completed Never smoker [place] [facility] 12:00:00 AM EST [employer] Smoking 07/19/2018 Never smoker completed Never smoker [place] [facility] 12:00:00 AM EST [employer] Smoking 07/11/2018 Never smoker completed Never smoker [place] [facility] 12:00:00 AM EST [employer] Vital Signs ID Date Data Source UNK Name Value Range Interpretation Code Description Data Source(s) Oxygen saturation 98 % 98 % [facility] in Arterial blood Student Designed by Pulse oxim[employer] Body mass index 48.95 kg/m2 48.95 kg/m2 KDPOF [facility] ours (BMI) [Ratio] [employer] [facility] [employer] Body weight 136.533 kg 136.533 kg [facility] Body height 167 cm 167 cm [facility] Respiratory rate 12 /min 12 /min [facility] [employer] Body temperature 36.56 May 36.56 May [facility] [employer] Heart rate 102 /min 102 /min Jimmy Fairly [facility] [employer] Diastolic blood 60 mm[Hg] 60 mm[Hg] [facility] pressure [employer] Systolic blood 100 mm[Hg] 100 mm[Hg] [place] [facility] pressure [employer] Diastolic blood 80 mm[Hg] 80 mm[Hg] [facility] pressure [employer] Systolic blood 122 mm[Hg] 122 mm[Hg] [place] [facility] pressure [employer] Respiratory rate 20 /min 20 /min [facility] [employer] Heart rate 70 /min 70 /min [facility] Diastolic blood 70 mm[Hg] 70 mm[Hg] [facility] pressure [employer] Systolic blood 124 mm[Hg] 124 mm[Hg] [place] [facility] pressure [employer] Respiratory rate 18 /min 18 /min [facility] [employer] Body temperature 36.56 May 36.56 May [facility] [employer] Heart rate 88 /min 88 /min [facility] Diastolic blood 86 mm[Hg] 86 mm[Hg] [facility] pressure [employer] Systolic blood 110 mm[Hg] 110 mm[Hg] [place] [facility] pressure [employer] Oxygen saturation 98 % 98 % [facility] in Arterial blood [employer] by [employer]ulse [employer] Body mass index 47.98 kg/m2 47.98 kg/m2 [facility] (BMI) [Ratio] [facility] Body weight 133.811 kg 133.811 kg [facility] [employer] Body height 167 cm 167 cm [facility] [employer] Respiratory rate 12 /min 12 /min [facility] [employer] Body temperature 36.67 May 36.67 May [facility] [employer] Heart rate 100 /min 100 /min [facility] [employer] Diastolic blood 66 mm[Hg] 66 mm[Hg] [facility] pressure [employer] Systolic blood 102 mm[Hg] 102 mm[Hg] [place] [facility] pressure [employer] Respiratory rate 20 /min 20 /min [facility] [employer] Heart rate 70 /min 70 /min [facility] Diastolic blood 68 mm[Hg] 68 mm[Hg] [facility] pressure [employer] Systolic blood 120 mm[Hg] 120 mm[Hg] [place] [facility] pressure [employer] Respiratory rate 18 /min 18 /min [facility] [employer] Heart rate 68 /min 68 /min [facility] [employer] [employer] Diastolic blood 68 mm[Hg] 68 mm[Hg] [facility] pressure [employer] Systolic blood 112 mm[Hg] 112 mm[Hg] [place] [facility] pressure [employer] Respiratory rate 20 /min 20 /min [facility] [employer] Body temperature 36.56 May 36.56 May [facility] [employer] Heart rate 92 /min 92 /min [facility] [employer] Diastolic blood 70 mm[Hg] 70 mm[Hg] [facility] pressure [facility] Systolic blood 110 mm[Hg] 110 mm[Hg] [place] [facility] pressure [employer] Respiratory rate 20 /min 20 /min [facility] [employer] Heart rate 68 /min 68 /min [facility] Diastolic blood 72 mm[Hg] 72 mm[Hg] [facility] pressure [employer] Systolic blood 112 mm[Hg] 112 mm[Hg] [place] [facility] pressure [facility] Respiratory rate 20 /min 20 /min [facility] [employer] Heart rate 82 /min 82 /min [facility] [employer] Diastolic blood 66 mm[Hg] 66 mm[Hg] [facility] pressure [facility] Systolic blood 110 mm[Hg] 110 mm[Hg] [place] [facility] pressure [employer] Respiratory rate 14 /min 14 /min [facility] [employer] Body temperature 36.89 May 36.89 May [facility] [employer] Heart rate 72 /min 72 /min [facility] Student Designed System [facility] Diastolic blood 74 mm[Hg] 74 mm[Hg] [facility] pressure [employer] Systolic blood 128 mm[Hg] 128 mm[Hg] [place] [facility] pressure [employer] Respiratory rate 20 /min 20 /min [facility] [employer] Heart rate 68 /min 68 /min [facility] [employer] Diastolic blood 64 mm[Hg] 64 mm[Hg] [facility] pressure [employer] Systolic blood 108 mm[Hg] 108 mm[Hg] [place] [facility] pressure [employer] Respiratory rate 18 /min 18 /min [facility] [employer] Heart rate 80 /min 80 /min [facility] [employer] Diastolic blood 70 mm[Hg] 70 mm[Hg] [facility] pressure [facility] Systolic blood 98 mm[Hg] 98 mm[Hg] [place] [facility] pressure [employer] Respiratory rate 20 /min 20 /min [facility] [employer] Body temperature 36.56 May 36.56 May [facility] [employer] Heart rate 78 /min 78 /min KDPOF [facility] [employer] Diastolic blood 60 mm[Hg] 60 mm[Hg] [facility] pressure [employer] Systolic blood 110 mm[Hg] 110 mm[Hg] [place] [facility] pressure [employer] Body mass index 48.95 kg/m2 48.95 kg/m2 [place] ours (BMI) [Ratio] [facility] Body weight 136.533 kg 136.533 kg [facility] [employer] Respiratory rate 18 /min 18 /min [facility] Body temperature 36.56 May 36.56 May [facility] [employer] Heart rate 80 /min 80 /min KDPOF SecAllmoxy Inc Diastolic blood 70 mm[Hg] 70 mm[Hg] [facility] pressure [employer] System [employer] Systolic blood 128 mm[Hg] 128 mm[Hg] [place] [facility] pressure [employer] Oxygen saturation 98 % 98 % [facility] in Arterial blood [facility] by Pulse oximetry [employer] Body mass index 48.95 kg/m2 48.95 kg/m2 [facility] (BMI) [Ratio] [employer] [facility] Body weight 136.533 kg 136.533 kg [facility] Body height 167 cm 167 cm [facility] Respiratory rate 14 /min 14 /min KDPOF [facility] urs [employer] Body temperature 36.44 May 36.44 May [facility] [employer] Heart rate 98 /min 98 /min [facility] Diastolic blood 60 mm[Hg] 60 mm[Hg] [facility] pressure [employer] Systolic blood 110 mm[Hg] 110 mm[Hg] [place] [facility] pressure [employer] Oxygen saturation 96 % 96 % [facility] in Arterial blood Bela [employer] by Pulse oximetry [facility] [employer] Respiratory rate 18 /min 18 /min [facility] [employer] Body temperature 36.72 May 36.72 May [facility] [employer] Heart rate 80 /min 80 /min [facility] Diastolic blood 88 mm[Hg] 88 mm[Hg] [facility] pressure [employer] Systolic blood 128 mm[Hg] 128 mm[Hg] [place] [facility] pressure [employer] System Inc Body mass index 48.97 kg/m2 48.97 kg/m2 [facility] (BMI) [Ratio] [employer] Body weight 136.578 kg 136.578 kg [facility] Body height 167 cm 167 cm [facility] [employer] Oxygen saturation 98 % 98 % [facility] in Arterial blood [facility] by Pulse oximetry [facility] [employer] Body mass index 48.30 kg/m2 48.30 kg/m2 [facility] (BMI) [Ratio] [employer] Body weight 134.718 kg 134.718 kg [facility] Body height 167 cm 167 cm [facility] Respiratory rate 14 /min 14 /min [facility] [employer] Body temperature 37.33 May 37.33 May [facility] [employer] Heart rate 100 /min 100 /min [facility] Diastolic blood 68 mm[Hg] 68 mm[Hg] [facility] pressure [employer] Systolic blood 118 mm[Hg] 118 mm[Hg] [place] [facility] pressure [employer] Oxygen saturation 98 % 98 % [facility] in Arterial blood Bela [employer] by Pulse oximetry [facility] [employer] Body mass index 47.49 kg/m2 47.49 kg/m2 [facility] (BMI) [Ratio] [facility] Body weight 132.45 kg 132.45 kg [facility] Body height 167 cm 167 cm [facility] Respiratory rate 12 /min 12 /min [facility] [employer] Body temperature 36.44 May 36.44 May [facility] [employer] Heart rate 88 /min 88 /min [facility] Diastolic blood 70 mm[Hg] 70 mm[Hg] [facility] pressure [employer] Systolic blood 102 mm[Hg] 102 mm[Hg] [place] [facility] pressure [employer] Oxygen saturation 92 % 92 % [facility] in Arterial blood [facility]a [employer] by Pulse oximetry [facility] [employer] Body mass index 45.86 kg/m2 45.86 kg/m2 [facility] (BMI) [Ratio] [employer] Body weight 133.811 kg 133.811 kg [facility] Body height 170.8 cm 170.8 cm [facility] Respiratory rate 12 /min 12 /min [facility] [employer] Body temperature 36.67 May 36.67 May [facility] [employer] Heart rate 88 /min 88 /min [facility] Diastolic blood 80 mm[Hg] 80 mm[Hg] [facility] pressure [employer] Systolic blood 120 mm[Hg] 120 mm[Hg] [place] [facility] pressure [employer] Oxygen saturation 95 % 95 % [facility] in Arterial blood Bela [employer] by Pulse oximetry [facility] [employer] Respiratory rate 18 /min 18 /min [facility] Student [employer] Body temperature 36.44 Mya 36.44 May [facility] [employer] Heart rate 100 /min 100 /min [facility] [employer] Diastolic blood 80 mm[Hg] 80 mm[Hg] [facility] pressure [employer] Systolic blood 123 mm[Hg] 123 mm[Hg] [place] [facility] pressure [employer] Body mass index 46.99 kg/m2 46.99 kg/m2 [facility] (BMI) [Ratio] [employer] [facility] Body weight 136.079 kg 136.079 kg [facility] [employer] [facility] Body height 170.2 cm 170.2 cm [facility] Oxygen saturation 96 % 96 % [facility] in Arterial blood Bela [employer] by Pulse oximetry [facility] [employer] Body mass index 45.55 kg/m2 45.55 kg/m2 [facility] (BMI) [Ratio] [employer] [facility] Body weight 132.904 kg 132.904 kg [facility] [place] [employer] Body height 170.8 cm 170.8 cm [facility] [employer] Respiratory rate 14 /min 14 /min [facility] [employer] Body temperature 35.89 May 35.89 May [facility] [employer] Heart rate 96 /min 96 /min [facility] Inc Diastolic blood 78 mm[Hg] 78 mm[Hg] [facility] pressure [employer] Systolic blood 116 mm[Hg] 116 mm[Hg] [place] [facility] pressure [employer] Oxygen saturation 92 % 92 % [facility] in Arterial blood [facility]a [employer] by Pulse oximetry [employer] Respiratory rate 15 /min 15 /min [facility] [employer] Heart rate 96 /min 96 /min [facility] [employer] Diastolic blood 86 mm[Hg] 86 mm[Hg] [facility] pressure [employer] Systolic blood 121 mm[Hg] 121 mm[Hg] [place] [facility] pressure [employer] Body mass index 40.18 kg/m2 40.18 kg/m2 [facility] (BMI) [Ratio] [facility] Body weight 127.007 kg 127.007 kg [facility] Body height 177.8 cm 177.8 cm [facility] Body temperature 36.72 May 36.72 May [facility] [employer] Body temperature 36.33 May 36.33 May [facility] [employer] Oxygen saturation 96 % 96 % [facility] in Arterial blood [facility]a [employer] by Pulse oximetry [facility] [employer] Respiratory rate 21 /min 21 /min [facility] [employer] Heart rate 85 /min 85 /min [facility] Diastolic blood 88 mm[Hg] 88 mm[Hg] [facility] pressure [employer] Systolic blood 155 mm[Hg] 155 mm[Hg] [place] [facility] pressure [employer] Body mass index 40.18 kg/m2 40.18 kg/m2 [facility] (BMI) [Ratio] [facility] Body weight 127.007 kg 127.007 kg [facility] Body height 177.8 cm 177.8 cm [facility] Oxygen saturation 98 % 98 % [facility] in Arterial blood [facility] by Pulse oximetry [facility] [employer] Body mass index 44.66 kg/m2 44.66 kg/m2 [facility] (BMI) [Ratio] [employer] [facility] Body weight 128.368 kg 128.368 kg [facility] Body height 169.5 cm 169.5 cm [facility] Respiratory rate 12 /min 12 /min [facility] [employer] Body temperature 36.28 May 36.28 May [facility] [employer] Heart rate 68 /min 68 /min [facility] Diastolic blood 80 mm[Hg] 80 mm[Hg] [facility] pressure [employer] Systolic blood 122 mm[Hg] 122 mm[Hg] [place] [facility] pressure [employer] Oxygen saturation 96 % 96 % [facility] in Arterial blood Bela [employer] by Pulse oximetry [facility] [employer] Diastolic blood 53 mm[Hg] 53 mm[Hg] [facility] pressure [employer] Systolic blood 107 mm[Hg] 107 mm[Hg] [place] [facility] pressure [employer] Respiratory rate 17 /min 17 /min [facility] [place] Body temperature 37.11 May 37.11 May [facility] Student [employer]igned [employer] Heart rate 58 /min 58 /min [facility] [employer] Body mass index 38.06 kg/m2 38.06 kg/m2 [facility] (BMI) [Ratio] [facility] Body weight 110.224 kg 110.224 kg [facility] [employer] [place] Body height 170.2 cm 170.2 cm [facility]ou [facility] Oxygen saturation 98 % 98 % [facility] in Arterial blood Bela [employer] by Pulse oximetry [facility] [employer] Body mass index 37.71 kg/m2 37.71 kg/m2 [facility] (BMI) [Ratio] [place] Body weight 108.41 kg 108.41 kg [facility] [employer] Body height 169.5 cm 169.5 cm [employer] Respiratory rate 16 /min 16 /min [facility] [place] Body temperature 36.44 May 36.44 May [facility] [place] Heart rate 74 /min 74 /min [facility] [place] [employer] Diastolic blood 70 mm[Hg] 70 mm[Hg] [facility] pressure [place] Systolic blood 94 mm[Hg] 94 mm[Hg] [place] [facility] pressure Kangou [facility] Oxygen saturation 98 % 98 % [facility] in Arterial blood [employer] by Pulse oximetry [facility] [employer] Respiratory rate 17 /min 17 /min [facility] [employer] Body temperature 36.33 May 36.33 May [facility] [employer] Heart rate 87 /min 87 /min [facility] [employer] Diastolic blood 75 mm[Hg] 75 mm[Hg] [facility] pressure [place] Systolic blood 121 mm[Hg] 121 mm[Hg] [place] [facility] pressure [place] Body mass index 39.94 kg/m2 39.94 kg/m2 [facility] (BMI) [Ratio] [facility] [facility] Body weight 108.863 kg 108.863 kg [facility] [employer] [place] Body height 165.1 cm 165.1 cm [employer] Patient Treatment Plan of Care Planned Activity Planned Date Details Description Data Source (s) Propranolol Hydrochloride 01/08/2020 Francisco Javier n [facility] 10 MG Oral Tablet 12:00:00 AM EDT [facility] Clonazepam 0.5 MG Oral 12/25/2019 [facility] Tablet 12:00:00 AM EDT [facility] Ibuprofen 200 MG Oral 12/22/2019 [facility] Tablet 12:00:00 AM EDT [facility] olanzapine 5 MG Oral Tablet 12/09/2019 [facility] 09:00:00 AM EDT [facility] Olmesartan medoxomil 20 MG 12/09/2019 [facility] on [facility] Oral Tablet 12:00:00 AM EDT [facility] olanzapine 5 MG Oral Tablet 12/09/2019 [facility] 12:00:00 AM EDT [facility] Losartan Potassium 50 MG 12/09/2019 [facility] Oral Tablet 12:00:00 AM EDT [facility] Clonazepam 0.5 MG Oral 12/08/2019 [facility] Tablet 12:00:00 AM EDT [facility] Risperidone 2 MG Oral 12/04/2019 [facility] Tablet 12:00:00 AM EDT [facility] [place] Carbonate 300 MG 11/30/2019 [facility] Oral Capsule 12:00:00 AM EDT [facility] Amitriptyline Hydrochloride 11/12/2019 [facility] 100 MG Oral Tablet 12:00:00 AM EDT [facility] Docusate Sodium 100 MG Oral 11/04/2019 [facility] Capsule 12:00:00 AM EDT [facility] Bisacodyl 5 MG Delayed 11/03/2019 [facility] Release Oral Tablet 12:00:00 AM EDT [employer] [facility] Bisacodyl 5 MG Delayed 10/31/2019 [facility] Release Oral Tablet 01:50:17 PM EDT [employer] [facility] Acetaminophen 325 MG Oral 10/29/2019 Francisco Javier n [facility] Tablet 02:44:40 PM EDT [facility] sodium chloride (NS) flush 10/29/2019 [facility] 5-40 mL 11:01:53 AM EDT [facility] 24 HR Bupropion 10/17/2019 [facility] Hydrochloride 150 MG 12:00:00 AM EDT [employer] [facility] Extended Release Oral Tablet 24 HR Bupropion 10/17/2019 [facility] Hydrochloride 300 MG 12:00:00 AM EDT [employer] [facility] Extended Release Oral Tablet Vraylar 3 mg capsule 09/03/2019 [facility] 12:00:00 AM EDT [facility] Amitriptyline Hydrochloride 08/20/2019 [facility] 150 MG Oral Tablet 12:00:00 AM EST [facility] [place] Carbonate 150 MG 08/16/2019 [facility] Oral Capsule 12:00:00 AM EST [facility] Prednisone 50 MG Oral 08/16/2019 [facility] Tablet 12:00:00 AM EST [facility] Cyclobenzaprine 07/21/2019 [facility] hydrochloride 10 MG Oral 12:00:00 AM EST [facility] Tablet Acetaminophen 325 MG / 07/21/2019 [facility] Oxycodone Hydrochloride 5 12:00:00 AM EST [facility] MG Oral Tablet VRAYLAR 6 mg capsule 07/07/2019 [facility] 12:00:00 AM EST [facility] valacyclovir 1000 MG Oral 07/17/2018 Francisco Javier n [facility] Tablet 12:00:00 AM EST [facility] Risperidone 1 MG Oral 12/07/2017 [facility] Tablet 12:00:00 AM EDT [facility] Alprazolam 1 MG Oral Tablet 12/07/2017 [facility] 12:00:00 AM EDT [facility] lamotrigine 25 MG Oral 12/07/2017 [facility] Tablet 12:00:00 AM EDT [facility] Clonazepam 2 MG Oral Tablet [facility] I nc cariprazine (Vraylar) 6 mg [facility] 24 HR Bupropion [facility] Hydrochloride 300 MG [facility] Extended Release Oral Tablet fluoxetine HCl (PROZAC PO) [facility] ziprasidone 80 MG Oral [facility] I nc valacyclovir 500 MG Oral [facility] Tablet [Valtrex] [facility]
[2020-03-09 07:18] VITALS: BMI 48.0
[~2020-03-12 09:13] MED LIST: LACTATED RINGERS SOLUTION 1,000 ML IV SCH
[2020-03-12] MEDS ORDERED: KETAMINE HCL 500 MG/10 ML VIAL ONE (10:35)
[2020-03-12 11:45] VITALS: TEMP 98.8
[2020-03-12 12:19] VITALS: BP 122/80; PULSE 72
--- NOTE | 2020-03-12 17:09 | HP ---
CHIEF COMPLAINT: Bipolar Depression Type I PCP: Darrel Peters [place] Primary Psychiatrist: Komal Pyle HISTORY OF PRESENT ILLNESS: 50 year-old male with a PMH significant for HTN, obesity, and bipolar disorder Type I. He presents today for his first ECT treatment. 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 Smoking: never Alcohol: occasional Drugs: no Family history: mother diabetes, heart disease Allergies No Known Drug Allergies Allergy (Verified 03/11/20 09:40) HOME MEDICATIONS: Home Medications Medication Instructions Recorded Amitriptyline HCl [Elavil -] 200 mg PO HS 02/10/20 Clonazepam 0.5 mg PO TID 02/10/20 [place] Carbonate [Eskalith -] 300 mg PO BID 02/10/20 Olmesartan Medoxomil 20 mg PO DAILY 02/10/20 Propranolol HCl 10 mg PO TID 02/10/20 REVIEW OF SYSTEMS CONSTITUTIONAL: Absent: fever, chills, diaphoresis, generalized weakness, malaise, loss of appetite, weight change HEENT: Absent: rhinorrhea, nasal congestion, throat pain, throat swelling, difficulty swallowing, mouth swelling, ear pain, eye pain, visual changes CARDIOVASCULAR: Absent: chest pain, syncope, palpitations, irregular heart rate, lightheadedness, peripheral edema RESPIRATORY: Absent: cough, shortness of breath, dyspnea with exertion, orthopnea, wheezing, stridor, hemoptysis GASTROINTESTINAL: Absent: abdominal pain, abdominal distension, nausea, vomiting, diarrhea, constipation, melena, hematochezia GENITOURINARY: Absent: dysuria, frequency, urgency, hesitancy, hematuria, flank pain, genital pain MUSCULOSKELETAL: Absent: myalgia, arthralgia, joint swelling, back pain, neck pain SKIN: Absent: rash, itching, pallor HEMATOLOGIC/IMMUNOLOGIC: Absent: easy bleeding, easy bruising, lymphadenopathy, frequent infections ENDOCRINE: Absent: unexplained weight gain, unexplained weight loss, heat intolerance, cold intolerance NEUROLOGIC: Absent: headache, focal weakness or paresthesias, dizziness, unsteady gait, seizure, mental status changes, bladder or bowel incontinence PHYSICAL EXAMINATION Vital Signs - 24 hr 09/18/20 09/18/20 09/18/20 09:32 10:40 10:45 Temperature 97.9 F Pulse Rate 74 83 83 Respiratory 18 10 12 Rate Blood Pressure 122/72 128/95 131/93 O2 Sat by Pulse 97 98 98 Oximetry (%) 03/12/20 03/12/20 03/12/20 10:50 10:55 11:00 Temperature Pulse Rate 78 79 78 Respiratory 13 14 12 Rate Blood Pressure 124/80 136/83 126/71 O2 Sat by Pulse 98 100 100 Oximetry (%) 03/12/20 03/12/20 03/12/20 11:15 11:25 11:35 Temperature 98.8 F 98.8 F Pulse Rate 75 75 76 Respiratory 10 10 18 Rate Blood Pressure 130/88 130/88 124/80 O2 Sat by Pulse 98 98 96 Oximetry (%) 03/12/20 03/12/20 12:05 12:19 Temperature 98.8 F Pulse Rate 72 72 Respiratory 18 18 Rate Blood Pressure 122/80 122/80 O2 Sat by Pulse 96 Oximetry (%) GENERAL: Awake, alert, and fully oriented, in no acute distress. HEAD: Normal with no signs of trauma. EYES: Pupils equal, round and reactive to light, sclera anicteric, conjunctiva clear. LUNGS: Breath sounds equal, clear to auscultation bilaterally. No wheezes, and no crackles. No accessory muscle use. HEART: Regular rate and rhythm, normal S1 and S2 ABDOMEN: Soft, nontender, not distended MUSCULOSKELETAL: Normal range of motion at all joints. No bony deformities or tenderness. No CVA tenderness. UPPER EXTREMITIES: 2+ pulses, warm, well-perfused. No cyanosis. No clubbing. No peripheral edema. LOWER EXTREMITIES: 2+ pulses, warm, well-perfused. No calf tenderness. No peripheral edema. NEUROLOGICAL: Cranial nerves II-XII intact. Normal speech. ASSESSMENT/PLAN: 50 year-old male with a PMH significant for HTN, obesity, and bipolar disorder Type I. He presents today for ECT. Cardiac --Hypertension: BP stable on current meds --Revised Cardiac Risk Index for Pre-Operative Risk: 0 points, 0.4% risk of major cardiac event Pulmonary --no pulmonary history Neurological --no neurological or neurosurgical history; no history of trauma Anesthesia --no reported problems with anesthesia ECT is a low risk procedure. The relative benefits of the planned procedure outweigh the relative risks for this patient at this time. Visit type - Emergency Visit Emergency Visit: No - New Patient This patient is new to me today: Yes Date on this admission: 03/12/20 - Critical Care Critical Care patient: No
--- OUTSIDE RECORDS SUMMARY | 2020-03-12 17:40 | XMS ---
:1970 Author Organization [facility] Care Team Providers Name Role Phone [...] is protected by Article 27-F of the [place] State Public Health law. If you continue you may haveaccess to information: Regarding HIV / AIDS; Provided by facilities licensed or operated by the [facility] Office of Mental Health; or Provided by the [facility] Office for People With Developmental Disabilities. If such information is present, then the following [facility] mandated warning applies: This information has been [...] law may result in a fine or retirement sentence or both. A general authorization for the release of medical or other information is NOT sufficient authorization for further disclosure. Encounters Encounter Providers Location Date Indications Data Source(s ) Outpatient 01/08/2020 03:30:00 [facility] Bela PM EDT - 01/12/2020 [facility] 10:23:35 AM EDT Patient discharged. Attender: MARIYA CATHERINE 01/01/2020 12:00:00 AM Bon [facility] Attender: MAURICIO 12/30/2019 12:00:00 AM Bon [facility] [employer] [facility] Attender: MARIYA CATHERINE 12/29/2019 12:00:00 AM [facility] 12/25/2019 04:00:00 PM [facility] 06:48:40 [facility] PM EDT Patient discharged. OL 12/25/2019 [facility] 11:59:00 PM EDT Attender: MARIYA 12/25/2019 12:00:00 AM [facility] Attender: SUSI LONGO 12/25/2019 12:00:00 AM [facility] Attender: MAURICIO 12/24/2019 12:00:00 AM [facility] Attender: MARIYA 12/22/2019 12:00:00 AM [facility] Attender: SUSI LONGO 12/22/2019 12:00:00 AM [facility] Attender: MAURICIO 12/19/2019 12:00:00 AM [facility] Attender: MARIYA 12/18/2019 12:00:00 AM [facility] Attender: GLADIS FUNEZ 12/18/2019 12:00:00 AM [facility] Attender: SUSI LONGO 12/17/2019 12:00:00 AM [facility] Attender: MAURICIO 12/16/2019 12:00:00 AM [facility] Attender: MARIYA 12/15/2019 12:00:00 AM Critical access hospital Attender: XANDER COLBERT 12/13/2019 12:00:00 AM Bon [facility] Outpatient 12/12/2019 12:00:00 PM Francisco Javier n [facility] EDT - 12/12/2019 [facility] 01:20:23 PM EDT Patient discharged. Attender: HEATHER 12/08/2019 05:55:36 [facility] - 01/02/2020 [facility] 12:00:00 AM EDT System In c Inpatient Admitter: RITIKA 12/05/2019 12:00:00 General [facility] AM EDT - 12/08/2019 [facility] 03:44:00 PM EDT General Weakness Patient discharged. Outpatient 12/05/2019 12:00:00 AM EDT [facility] Outpatient 12/01/2019 03:45:00 PM EDT - [facility] 12/01/2019 05:01:16 PM EDT Inc Patient discharged. Outpatient 11/14/2019 01:00:00 PM EDT - [facility] 11/18/2019 11:56:43 AM EDT System Inc Patient discharged. Outpatient 11/10/2019 09:00:00 AM EDT - [facility] 11/10/2019 04:44:05 PM EDT System Inc Patient discharged. Inpatient Admitter: RITIKA CANAS 10/29/2019 12:00:00 AM let hargic [facility] EDT - 11/03/2019 [facility] 04:02:00 PM EDT lethargic Patient discharged. Outpatient 09/15/2019 08:22:58 AM EDT [facility] - 09/15/2019 11:59:00 PM Hospital EDT Outpatient 09/10/2019 04:00:00 PM EDT [facility] Outpatient 09/04/2019 03:15:00 PM EDT [facility] Outpatient 08/19/2019 07:31:00 AM EST [facility] ([facility]) Outpatient 08/18/2019 06:35:00 AM EST [facility] ([facility]) Outpatient 08/17/2019 07:16:00 AM EST [facility]EXTGEN ([facility]) Emergency 08/16/2019 12:00:00 AM EST Shortness of Breath [facility] - 08/16/2019 10:45:00 PM Hospital EST Shortness of Breath Patient discharged. Outpatient 08/11/2019 12:05:00 AM EST [facility] Emergency 08/10/2019 12:00:00 AM EST - Chest P ain [facility] 08/11/2019 01:42:00 AM EST Hospital Chest Pain Patient discharged. Outpatient 07/21/2019 04:15:00 PM EST - [facility] 07/22/2019 10:51:43 AM EST System Inc Patient discharged. Immunizations Vaccine Date Status Description Data Source(s) New in 2012. 09/04/2019 completed Influenza 09/04/2019 [facility] IIV4 12:00:00 AM EDT Vaccine (Quad) [facility] IIV3. This is one 07/19/2018 completed Influenza 07/19/2018, [facility] of two codes 12:00:00 AM EST Vaccine 04/30/2014 Bela replacing CVX 15, He alth which is being [employer] retired. Influenza, 04/01/2016 completed Influenza 04/01/2016 [facility] injectable, MDCK, 12:00:00 AM EDT Vaccine (Quad) [facility] preservative [facility] quadrivalent Tdap 12/11/2014 completed Tdap 12/11/2014 [facility] 12:00:00 AM EDT [facility] [facility] IIV3. This is one 04/30/2014 completed Influenza 07/19/2018, [facility] of two codes 12:00:00 AM EST Vaccine 04/30/2014 Bela replacing CVX 15, He alth which is being [employer] retired. RAMAKRISHNA 06/12/2013 completed Influenza 06/12/2013 [facility] 12:00:00 AM EST Vaccine Moira ity (Trivalent) [facility] Medications Medication Brand Start Product Dose Route Administrative Pharmacy [facility] Indications Reaction Description Data Name Date Form Instructions Instructions Source(s) Propranolol propra 10 mg Oral active essential T stephanie 1 Tab Bon Hydrochlori noloL 2019 tremor by mouth S [facility] de 10 MG (BETO 12:00: three (3) Ch arity Oral Tablet AL) 10 00 AM times [facility] propranoloL mg EDT Indications: System Inc [...] Tablet tablet 5 mg EDT dose (after [facility] OLANZapine last Health (ZyPREXA) modification) S ystem tablet 5 mg on [employer] 12/09/19 at 0900, Until Discontinued Medication [...] on Sun Bela OLANZapine mg 12/07/19 at [facility] (ZyPREXA) 1400, Until Sys tem tablet 2.5 Discontinued I nc mg Medication administered onsite [place] lithium 12/07/2019 300 Oral active 300 mg , Oral, Bon Carbonate carbonate SR 02:00:00 PM mg 2 TIMES DAILY, [facility] 300 MG (LITHOBID) EDT First dose o n Bela Extended tablet 300 Sun 0 at [facility] Release Oral mg 1400, Until System Tablet Discontinued Inc lithium carbonate SR (LITHOBID) tablet 300 mg Medication administered onsite Losartan losartan 12/07/2019 50 Oral active 50 m g, Oral, Bon Potassium 50 (COZAAR) 01:00:00 PM mg D AILY, [facility] MG Oral tablet 50 EDT dose on Sun Bela Tablet mg 12/07/19 at [facility] losartan 1300, Until Syst em (COZAAR) Discontinued Inc tablet 50 mg Medication administered onsite furosemide 03640-047-19 12/07/2019 20 IntraVENous complete d 20 mg, [...] [facility] Tablet tablet 1 mg EDT TIMES Micehlle ty clonazePAM DAILY, 14 Heal th (KlonoPIN) doses, System tablet 1 mg First Inc dose on 12/06/19 at 1800, Last dose on 12/13/19 at 0900 Medication administered onsite furosemide 19509-395-95 12/06/2019 20 IntraVENous complete d edema 20 [...] il mg Discontinued Medication administered onsite 0.9% 5458-2401-78 12/05/2019 100 IntraVENous aborted 100 mL/hr, at [...] mg tablet Inc Shared psychotic disorder (HCC) [place] lithium 11/30/2019 aborted Bon Carbonate 300 carbonate [...] (DULCOLAX) 5 Inc mg EC tablet cariprazine [id number] 11/01/2019 6 mg Oral active 6 m [...] t dose on Bela hydrocortisone 11/01/19 at [facility] (HYTONE) 2.5 % 1800, Unti l System ointment Discontinued Inc Medication administered onsite Docusate docusate 10/31/2019 200 Oral active 200 mg, Oral, Bon Sodium 100 sodium 02:00:00 PM mg DAILY , [facility] MG Oral (COLACE) EDT dose on Sun C harity Capsule capsule 200 10/31/19 at [facility] docusate mg 1400, Until Syst em sodium [...] haloperidoL tablet 5 mg EDT ONCE, 1 [facility] (HALDOL) dose, [facility] tablet 5 mg Denise System 10/30/19 [facility] at 2100 Medication administered onsite amitriptyline 10/30/2019 150 mg Oral active 1 50 mg, Oral, Bon (ELAVIL) tablet 09:00:00 PM EV AN BEDTIME, [facility] 150 mg EDT First dose on [facility] ity Denise 10/30/19 at [facility] 2100, Until System I nc Discontinued Medication administered onsite Haloperidol 2 haloperidoL 10/30/2019 2 mg Oral aborted 2 mg, Oral, Bon MG Oral (HALDOL) 08:01:20 PM EVERY 6 [facility] Tablet tablet 2 mg EDT HOURS Ch arity haloperidoL NEEDED, [facility] h (HALDOL) Starting Denise Sys tem tablet 2 mg 10/30/[address] [facility] 2000, Until 10/31/19 at 2043, Psychosis, Agitation Medication administered onsite [place] lithium 10/30/2019 300 Oral active 300 mg , Oral, Bon Carbonate carbonate 12:00:00 PM mg 2 T IMES DAILY, [facility] 300 MG Oral tablet 300 EDT First d ose on Bela Tablet mg Denise 10/30/19 at [facility] lithium 1200, Until Syste m carbonate Discontinued In c tablet 300 mg Medication administered onsite Clonazepam 1 clonazePAM 10/30/2019 1 mg Oral active 1 mg, Oral, 2 Bon MG Oral (KlonoPIN) 12:00:00 PM TIME S DAILY, [facility] Tablet tablet 1 mg EDT First dose on [facility] clonazePAM [facility] 10/30/19 at [facility] (KlonoPIN) 1200, Until Sy stem tablet [address] [facility] Medication administered onsite 0.9% 3555-3870-32 10/29/2019 100 IntraVENous aborted 100 mL/hr, at Bon sodium 02:55:00 PM mL/h 100 mL/hr, [facility] chloride EDT IntraVENous, Jagruti rity infusion CONTINUOUS, [facility] Starting Wed System 10/29/[address] [...] EDT NEEDED , Bela acetaminophen Starting [facility] (TYLENOL) [facility] mg 1444, Until Inc Discontinued, Mild Pain, Fever Medication administered onsite sodium 49935-798-26 10/29/2019 mL IntraVENous active 5-40 mL, Bon chloride 02:00:00 PM IntraVENo us, [facility] (NS) flush EDT EVERY 8 Charit y 5-40 mL HOURS, First Heal dose on Sun System 10/29/19 at Inc 1400, Until Discontinued Medication administered onsite sodium 27506-185-65 10/29/2019 mL IntraVENous active 5-40 mL, Bon [...] XL) 150 mg tablet Vraylar 3 mg 02567-213-82 09/03/2019 6 Oral aborted depre ssion Take [...] EST NOW, 1 Bela chewable tablet dose, [facility] 162 mg 08/16/19 System at 2103 Inc Medication administered onsite famotidine 08/16/2019 20 IntraVENous aborted 20 mg, Bon (PF) (PEPCID) 09:02:00 PM mg Intr aVENous, [facility] 20 mg in 0.9% EST EVERY 12 Ch arity sodium HOURS, First Healt h chloride 10 dose on Sat S ystem mL injection 08/16/19 at [facility] 2102, Until Discontinued Medication administered onsite methylPREDNISolone 747783 08/16/2019 125 IntraVENous comple hyun 125 mg, Bon (PF) (Solu-MEDROL) 09:02:00 PM mg IntraVENous, [facility] injection 125 mg EST NOW, 1 d ose, Bela 08/16/19 Health at 2102 System Inc Medication administered onsite 0.9% 9238-5018-93 08/16/2019 1000 IntraVENous completed 1,000 mL, at [...] mg tablet for 3 System days. Inc [place] lithium 08/16/2019 2 Oral active Take 2 [...] back pain due to trauma VRAYLAR 6 39028-963-23 07/07/2019 6 mg Oral aborted Bipolar Take [...] System DAILY Inc NEEDED FOR ANXIETY cariprazine 145800 6 mg Oral aborted Take 6 B [...] party's [place] Inform ation relationship to boland [facility] [id number] [facility] [id number] [facility] HEALTH [facility] [id number] [facility] HMO [id number] [facility] Commerical [id number] [facility] [id number] [facility] [id number] 900 HEALTH PLAN [facility] [id number] PLAN [facility] [id number] 900 HEALTH PLAN POLO [id number] POLO [id number] [employer]IG[employer] O [id number] [facility] PPO [id number] [place] 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 [id number] COMPENSATION [facility] [id number] 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 [id number] COMPENSATION [facility] [id number] GENERIC [id number] COMMERCIAL [facility] [id number] PLAN [facility] GENERIC Commerical [id number] [facility] PPO [id number] PLAN [facility] [id number] PLAN 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 [id number] COMPENSATION [facility] [place] [id number] [facility] HEALTH [facility] PPO [id number] [place] [address] Problems, Conditions, and Diagnoses Code Display Name Description Problem Type Effective Data Dates Source(s) T88.7XXA Tlo-mxyg-kocikda Zxd-vakm-nkdudum [id number] 12/05/2019 Francisco Javier n [facility] adverse reaction to adverse reaction to 12:00:0 0 AM Bela medication medication [facility] Symplified [facility] T50.905A Adverse drug Adverse drug [id number] 12/05/2019 Bernard s reaction, initial reaction, initial 12:00:00 AM [facility] encounter encounter [facility] [employer] G93.40 Encephalopathy acute Encephalopathy acute [id number] 12/04 [facility] 12:00:00 AM Bela [employer] F31.4 Bipolar disorder Bipolar disorder 19509331 10/29/2019 Francisco Javier n [facility] with severe with severe 12:00:00 AM Bela depression depression [facility] [employer] E55.9 Vitamin D deficiency Vitamin D deficiency 14984564 09/03 [facility] 12:00:00 AM [facility] Symplified [facility] F41.8 Mixed anxiety and Mixed anxiety and 58619176 09/04/2019 [facility] depressive disorder depressive disorder 12:00:0 0 AM [employer] E66.01 Morbid obesity Morbid obesity 18662800 07/21/2019 [facility] 12:00:00 AM [employer] Z98.84 Status post gastric Status post gastric 50998701 020 [facility] bypass for obesity bypass for obesity 12:00:00 AM [employer] F32.9 Depressive disorder Depressive disorder 21529785 020 [facility] 12:00:00 AM [employer] F31.9 Bipolar disorder Bipolar disorder 25560148 07/21/2019 Francisco Javier n [facility] 12:00:00 AM [employer] F41.9 Anxiety Anxiety 05759579 07/21/2019 [facility] 12:00:00 AM [employer] F32.9 Depression Depression 25126944 07/20/2018 [facility] 12:00:00 AM [employer] E66.01 Severe obesity Severe obesity 95738730 07/19/2018 [facility] 12:00:00 AM [employer] [id number] Spells Spells 77691868 04/08/2016 [facility] 12:00:00 AM [employer] G40.909 Seizure disorder Seizure disorder 20440168 04/30/2014 Francisco Javier n [facility] 12:00:00 AM [employer] M79.2 Neuropathic pain of Neuropathic pain of 75166247 014 [facility] shoulder shoulder 12:00:00 AM [employer]ook G47.00 Insomnia Insomnia 70111246 11/04/2013 [facility] 12:00:00 AM BelaVook Z98.84 H/O gastric bypass H/O gastric bypass 71483123 3 [facility] 12:00:00 AM [employer] G25.2 Other specified Other specified Diagnosis 01/08/2020 [facility] forms of tremor forms of tremor 03:17:29 PM [facility] [employer] F31.4 Bipolar disorder, Bipolar disorder, Diagnosis 12/25/2019 [facility] - current episode current episode 04:40:00 PM Goo d depressed, severe, depressed, severe, EDT Anabaptism without psychotic without psychotic Hospital features features F41.9 Anxiety disorder, Anxiety disorder, Diagnosis 12/25/2019 [facility] unspecified unspecified 04:04:24 PM [facility] R25.1 Tremor, unspecified Tremor, unspecified Diagnosis 020 [facility] 04:04:24 PM [facility] Z98.84 Bariatric surgery Bariatric surgery Diagnosis 12/25/2019 [facility] status status 04:04:24 PM [facility] T88.7XXA Unspecified adverse Unspecified adverse Diagnosis 020 [facility] - effect of drug or effect of drug or 11:10:37 AM Good medicament, initial medicament, initial [facility] encounter encounter Hospital G93.40 Encephalopathy, Encephalopathy, Diagnosis 12/05/2019 [facility] - unspecified unspecified 11:10:37 AM [facility] R41.82 Altered mental Altered mental Diagnosis 12/05/2019 [facility] - status, unspecified status, unspecified 11:10:3 7 AM [facility] F51.04 Psychophysiologic Psychophysiologic Diagnosis 11/14/2019 [facility] insomnia insomnia 01:22:52 PM [facility] F32.2 Major depressive Major depressive Diagnosis 09/15/2019 [facility] - disorder, single disorder, single 08:22:58 AM G ood episode, severe episode, severe EDT Aidan ritan without psychotic without psychotic Hospital features features F41.8 Other specified Other specified Diagnosis 09/04/2019 [facility] anxiety disorders anxiety disorders 03:49:01 PM [facility] F32.2 Major depressive Major depressive Diagnosis 09/04/2019 Francisco Javier n [facility] disorder, single disorder, single 03:49:01 PM C harity episode, severe episode, severe EDT Heal th without psychotic without psychotic System Inc features features Z23 Encounter for Encounter for Diagnosis 09/04/2019 [facility] immunization immunization 03:49:01 PM [facility] T78.40XA Allergy, Allergy, Diagnosis 08/16/2019 [facility] - unspecified, initial unspecified, initial 08:39 :16 PM Good encounter encounter [facility] R06.00 Dyspnea, unspecified Dyspnea, unspecified Diagnosis 08/10 [facility] - 11:27:27 PM [facility] F31.75 Bipolar disorder, in Bipolar disorder, in Diagnosis 07/21 [facility] partial remission, partial remission, 04:40:28 PM Bela most recent episode most recent episode EST Health depressed depressed [facility] [phone] essential tremor Diagnosis [facility] [id number] Bipolar disorder Diagnosis [facility] with severe [facility] depression ([facility]) [facility] [id number] Anxiety Diagnosis Bon [facility] [phone] hypertension Diagnosis Bon [facility] [phone] depression Diagnosis [facility] [phone] depression Diagnosis [facility] [phone] edema Diagnosis [facility] 883 883 depression Diagnosis [facility] [phone] evangelina associated Diagnosis [facility] with bipolar [facility] 1255 1255 hypertension Diagnosis [facility] [id number] Anxiety Diagnosis Bon [facility] 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 [facility] disorder (disorder) disorder ([facility]) [facility] [phone] depression Diagnosis Bon [facility] associated with [facility] bipolar disorder [facility] [id number] Acute low back pain Diagnosis Bon [facility] due to trauma [facility] [id number] Acute low back pain Diagnosis Bon [facility] due to trauma [facility] [id number] Bipolar disorder, in Diagnosis [facility] partial remission, Charit y most recent episode Healt h depressed ([facility]) System In c [id number] Herpes zoster Diagnosis Bon [facility] cephalicus [facility] Surgeries/Procedures Procedure Description Date Indications Data Source(s) HC HC Routine 12/25/2019 Bipolar 12/25/2019 Bipolar Francisco Javier n LITHIUM LITHIUM 4:41 PM EDT disorder 04:41:00 PM disorde r [facility] with severe EDT with severe [facility] depression depression He alth ([facility]) ([facility]) System Inc Bipolar disorder with severe depression ([facility]) GLUCOSE, POC GLUCOSE, POC Routine 12/08/2019 12/08/2019 Bon 11:35 AM 11:35:00 AM Sec ours EDT EDT [facility] METABOLIC METABOLIC Routine 12/07/2019 12/07/2019 Bon PANEL, BASIC PANEL, BASIC 4:40 AM EDT 04:40:00 A M [facility] EEG 12-26 HR EEG 12-26 HR Routine 12/06/2019 12/06/2019 Bon W/VIDEO W/VIDEO 10:25 AM 10:25:08 AM [facility] HC LITHIUM Routine 12/06/2019 12/06/2019 Bon 4:25 AM EDT 04:25:00 AM [facility] HC LACTIC ACID HC LACTIC ACID STAT 12/05/2019 020 Bon 7:20 PM EDT 07:20:00 PM [facility] HC AMMONIA HC AMMONIA STAT 12/05/2019 12/05/2019 Bon 7:20 PM EDT 07:20:00 PM [facility] MRI BRAIN WO MRI BRAIN WO STAT 12/05/2019 12/05/2019 Bon CONT CONT 4:50 PM EDT 04:50:12 PM [facility] EEG 12-26 HR EEG 12-26 HR STAT 12/05/2019 12/05/2019 Bon W/VIDEO W/VIDEO 3:19 PM EDT 03:19:24 PM [facility] CULTURE, URINE CULTURE, URINE Routine 12/05/2019 020 Bon 2:45 PM EDT 02:45:00 PM [facility] URINALYSIS W/ URINALYSIS W/ STAT 12/05/2019 0 Bon RFLX RFLX 2:45 PM EDT 02:45:00 PM [facility] MICROSCOPIC MICROSCOPIC [facility] BILIRUBIN, BILIRUBIN, Routine 12/05/2019 12/05/2019 Bon CONFIRM CONFIRM 2:45 PM EDT 02:45:00 PM [facility] HC LACTIC ACID HC LACTIC ACID STAT 12/05/2019 020 Bon 12:40 PM 12:40:00 PM [facility] C[facility] HC CULTURE STAT 12/05/2019 12/05/2019 Bon BLOOD BLOOD 12:38 PM 12:38:00 PM Sec ours EDT EDT [facility] PROTHROMBIN PROTHROMBIN STAT 12/05/2019 12/05/2019 Bon TIME + INR TIME + INR 12:38 PM 12:38:00 PM [facility] EDT EDT [facility] CBC WITH CBC WITH STAT 12/05/2019 12/05/2019 Bon AUTOMATED DIFF AUTOMATED DIFF 12:38 PM 12:38:00 PM [facility] EDT EDT [facility] HC TROPONIN I HC TROPONIN I STAT 12/05/2019 0 Bon QUANT QUANT 12:38 PM 12:38:00 PM Sec ours EDT EDT [facility] METABOLIC METABOLIC STAT 12/05/2019 12/05/2019 Bon PANEL, PANEL, 12:38 PM 12:38:00 PM Sec ours COMPREHENSIVE COMPREHENSIVE EDT EDT [facility] MAGNESIUM MAGNESIUM STAT 12/05/2019 12/05/2019 Bon 12:38 PM 12:38:00 PM Sec ours EDT EDT [facility] HC LITHIUM HC LITHIUM STAT 12/05/2019 12/05/2019 Bon 12:38 PM 12:38:00 PM Sec ours EDT EDT [facility] CT HEAD WO CT HEAD WO STAT 12/05/2019 12/05/2019 Bon CONT CONT 12:30 PM 12:30:54 PM Sec ours EDT EDT [facility] HC CULTURE HC CULTURE STAT 12/05/2019 12/05/2019 Bon BLOOD BLOOD 12:30 PM 12:30:00 PM Sec ours EDT EDT [facility] XR PELV AP XR PELV AP STAT 12/05/2019 12/05/2019 Bon ONLY ONLY 12:14 PM 12:14:58 PM Sec ours EDT EDT [facility] XR CHEST PORT XR CHEST PORT STAT 12/05/2019 0 Bon 12:14 PM 12:14:51 PM Sec ours EDT EDT [facility] RT--OXYGEN RT--OXYGEN STAT 12/05/2019 12/05/2019 Bon CANNULA CANNULA 11:20 AM 11:20:37 AM [facility] EDT EDT [facility] EEG DIGITAL EEG DIGITAL Routine 12/05/2019 12/05/2019 Bon ANALYSIS ANALYSIS 11:10 AM 11:10:37 AM [facility] EDT EDT [facility] CBC WITH CBC WITH STAT 10/30/2019 10/30/2019 Bon AUTOMATED DIFF AUTOMATED DIFF 6:40 AM EDT 06:40: 00 AM [facility] EDT [facility] METABOLIC METABOLIC STAT 10/30/2019 10/30/2019 Bon PANEL, BASIC PANEL, BASIC 6:40 AM EDT 06:40:00 A M [facility] EDT [facility] URINALYSIS W/ URINALYSIS W/ STAT 10/29/2019 0 Bon RFLX RFLX 6:34 PM EDT 06:34:00 PM [facility] MICROSCOPIC MICROSCOPIC EDT [facility] XR CHEST PORT XR CHEST PORT STAT 10/29/2019 0 Bon 12:09 PM 12:09:04 PM Sec [facility] EDT EDT [facility] CT HEAD WO CT HEAD WO STAT 10/29/2019 10/29/2019 Bon CONT CONT 11:47 AM 11:47:42 AM Sec [facility] EDT EDT [facility] HC GLUCOSE HC GLUCOSE Routine 10/29/2019 10/29/2019 Bon POCT POCT 11:26 AM 11:26:00 AM [facility] EDT EDT [facility] PROTHROMBIN PROTHROMBIN STAT 10/29/2019 10/29/2019 Bon TIME + INR TIME + INR 10:45 AM 10:45:00 AM [facility] EDT EDT [facility] CBC WITH CBC WITH STAT 10/29/2019 10/29/2019 Bon AUTOMATED DIFF AUTOMATED DIFF 10:45 AM 10:45:00 AM [facility] EDT EDT [facility] HC PARTIAL HC PARTIAL STAT 10/29/2019 10/29/2019 Bon THROMBOPLASTIN THROMBOPLASTIN 10:45 AM 10:45:00 AM [facility] / PTT / PTT EDT EDT [facility] METABOLIC METABOLIC STAT 10/29/2019 10/29/2019 Bon PANEL, PANEL, 10:45 AM 10:45:00 AM [facility] COMPREHENSIVE COMPREHENSIVE EDT EDT [facility] HC LITHIUM HC LITHIUM STAT 10/29/2019 10/29/2019 Bon 10:45 AM 10:45:00 AM Sec [facility] EDT EDT [facility] XR SPINE LUMB XR SPINE LUMB [...] n [facility] 9:00 PM EST 02:00:00 AM [facility] CBC WITH AUTOMATED CBC WITH STAT 08/16/2019 0 [facility] DIFF AUTOMATED DIFF 9:00 PM EST 02:00:00 AM [facility] TROPONIN I TROPONIN I STAT 08/16/2019 08/17/2019 [facility] 9:00 PM EST 02:00:00 AM [facility] METABOLIC PANEL, METABOLIC PANEL, STAT 08/16/2019 [facility] COMPREHENSIVE COMPREHENSIVE 9:00 PM EST 02:00:00 AM [facility] MAGNESIUM MAGNESIUM STAT 08/16/2019 08/17/2019 [facility] 9:00 PM EST 02:00:00 AM [facility] LITHIUM LITHIUM STAT 08/16/2019 08/17/2019 Francisco Javier n [facility] 9:00 PM EST 02:00:00 AM [facility] INFLUENZA A <td><content ID="[id number]">INFLUENZA A & B 07/26 Bon & B AG AG (RAPID 05:18:00 AM [facility] (RAPID TEST) TEST)</content></td><td>STAT</td><td>08/11/2019 [facility] 12:18 AM EST</td><td></td><td><paragraph Health styleCode="header">Results for this procedure are System in the <content Inc styleCode="[email or web address]-[id number]">results section</content>.</paragraph></td> PROTHROMBIN PROTHROMBIN STAT 08/11/2019 08/11/2019 Bon TIME + INR TIME + INR 12:01 AM 05:01:00 AM [facility] D DIMER D DIMER STAT 08/11/2019 08/11/2019 Francisco Javier n 12:01 AM 05:01:00 AM [facility] CBC WITH CBC WITH STAT 08/11/2019 08/11/2019 Bon AUTOMATED DIFF AUTOMATED DIFF 12:01 AM 05:01:00 AM [facility] PTT PTT STAT 08/11/2019 08/11/2019 Francisco Javier n 12:01 AM 05:01:00 AM [facility] TROPONIN I TROPONIN I STAT 08/11/2019 08/11/2019 Bon 12:01 AM 05:01:00 AM Sec [facility] METABOLIC METABOLIC STAT 08/11/2019 08/11/2019 Bon PANEL, PANEL, 12:01 AM 05:01:00 AM [facility] COMPREHENSIVE COMPREHENSIVE [facility] MAGNESIUM MAGNESIUM STAT 08/11/2019 08/11/2019 Bon 12:01 AM 05:01:00 AM Sec [facility] LITHIUM LITHIUM STAT 08/11/2019 08/11/2019 Francisco Javier n 12:01 AM 05:01:00 AM Sec [facility] LACTIC ACID LACTIC ACID STAT 08/11/2019 08/11/2019 Bon 12:01 AM 05:01:00 AM Sec [facility] BNP BNP STAT 08/11/2019 08/11/2019 Francisco Javier n 12:01 AM 05:01:00 AM Sec [facility] RT--OXYGEN RT--OXYGEN STAT 08/10/2019 08/11/2019 Bon CANNULA CANNULA 11:51 PM 04:51:27 AM [facility] EST EST [facility] EKG, 12 LEAD, EKG, 12 LEAD, STAT 08/10/2019 0 Bon INITIAL INITIAL 10:14 PM 03:14:27 AM [facility] EST EST [facility] XR SMALL BOWEL XR SMALL BOWEL Routine 08/02/2018 Morbid 019 Morbid Bon SERIES SERIES 11:01 AM obesity 04:01:14 PM obesity [facility] EST (HCC) EST (HCC) [facility] Morbid obesity (HCC) CBC WITH AUTOMATED CBC WITH STAT 07/12/2018 9 [facility] DIFF AUTOMATED DIFF 12:40 AM EST 05:40:00 AM [facility] TROPONIN I TROPONIN I STAT 07/12/2018 07/12/2018 [facility] 12:40 AM EST 05:40:00 AM [facility] METABOLIC PANEL, METABOLIC PANEL, STAT 07/12/2018 [facility] COMPREHENSIVE COMPREHENSIVE 12:40 AM EST 05:40:0 0 AM [facility] MAGNESIUM MAGNESIUM STAT 07/12/2018 07/12/2018 [facility] 12:40 AM EST 05:40:00 AM [facility] [employer] [facility] RT--OXYGEN CANNULA RT--OXYGEN STAT 07/12/2018 019 [facility] CANNULA 12:21 AM EST 05:21:15 AM [facility] [employer] [facility] Results ID Date Data Source [id number] 03/08/2020 10:18:00 AM EDT [facility] Name Value Range Interpretation Description Data Sup porting Code Source(s) Document(s ) SARS [facility] coronavirus 2 RNA This lab was ordered by KANG OLIVER and reported by [facility]. ID Date Data Source [id number] 03/04/2020 09:50:00 AM EDT [facility] Name Value Range Interpretation Description Data Sup porting Code Source(s) Document(s ) SARS [facility] coronavirus 2 RNA This lab was ordered by KANG FRANCISCO and reported by [facility]. ID Date Data Source [id number] 03/02/2020 12:15:00 PM EDT [facility] Name Value Range Interpretation Description Data Sup porting Code Source(s) Document(s ) SARS [facility] coronavirus 2 RNA This lab was ordered by [facility] and reported by [facility]. ID Date Data Source [id number] 02/27/2020 09:15:00 AM EDT [facility] Name Value Range Interpretation Description Data Sup porting Code Source(s) Document(s ) SARS [facility] coronavirus 2 RNA This lab was ordered by [facility] and reported by [facility]. ID Date Data Source [id number] 02/23/2020 11:40:00 AM EDT [facility] Name Value Range Interpretation Description Data Sup porting Code Source(s) Document(s ) SARS [facility] coronavirus 2 RNA This lab was ordered by [facility] and reported by [facility]. ID Date Data Source [id number] 02/19/2020 09:56:00 AM EDT [facility] Name Value Range Interpretation Description Data Sup porting Code Source(s) Document(s ) SARS [facility] coronavirus 2 RNA This lab was ordered by [facility] and reported by [facility]. ID Date Data Source [id number] 02/16/2020 08:40:00 AM EDT [facility] Name Value Range Interpretation Description Data Sup porting Code Source(s) Document(s ) SARS [facility] coronavirus 2 RNA This lab was ordered by [facility] and reported by [facility]. ID Date Data Source [id number] 02/13/2020 10:05:00 AM EDT [facility] Name Value Range Interpretation Description Data Sup porting Code Source(s) Document(s ) SARS [facility] coronavirus 2 RNA This lab was ordered by [facility] and reported by [facility]. ID Date Data Source [id number] 02/09/2020 10:25:00 AM EDT [facility] Name Value Range Interpretation Description Data Sup porting Code Source(s) Document(s ) SARS [facility] coronavirus 2 RNA This lab was ordered by [facility] and reported by [facility]. ID Date Data Source [id number] 01/25/2020 09:20:00 AM EDT [facility] Name Value Range Interpretation Description Data Sup porting Code Source(s) Document(s ) 2019 Novel [facility] Coronavirus RNA Interpretation Unspecified Specimen Qualitative CATA Probe Detection This lab was ordered by [facility] and reported by [facility]. ID Date Data Source [id number] 12/25/2019 05:54:30 PM EDT [facility] Name Value Range Interpretation Description Data Sup porting Code Source(s) Document(s ) [place] 0.38 0.6-1.2 Below low normal [facility] [Moles/volu MMOL/L [facility]] in Hospital Serum or Plasma ID Date Data Source [id number] 12/23/2019 01:50:56 PM EDT [facility] Discharge SummaryPatient: Anna Mendieta Xiao pao Sex: male DOA: 12/05/2019Date of : 1970 A ge: 49 y.o. LOS: LOS: 3 daysAdmit Date: 12/05/2019Discharge Date: 12/08/2019 Admission Diagnoses: Encephalopathy acute [G93.40];Zes-yshg-mlrirqs adversereactio n to medication [T88.7XXA];Qlt-unyd-hzlqart adverse reaction tomedication [T88.7XXA] Discharge Diagnoses: #1 [...] ICD-10-CM: T50.905AICD -9-CM: E947.9 12/05/2019 - Present Xct-iolx-zdmvvth adverse reaction to med ication ICD-10-CM: T88.9IUREAK-0-OO: 995.20 12/05/2019 - Present Bipolar disorder wit [...] E66.01ICD-9-CM: 278.01 07/19/2018 - Present Spells ICD-10-CM: [id number]: IMO00 01 04/08/2016 - Present Seizure disorder [...] improvement overseveral days. Psychiatric consultation obtained with elizabeth andrea the patientcontinue on chronic regimen of antidepressants etc. Patient to be closelyfollowed by this examiner. Patient awaits ECT treatment currently n ot availablesecondary to COVID-19 pandemicConsults: Neurology and Psychiat rySignificant Diagnostic Studies: labs: Microbiology: , radiology: and EEGDisc harge Medications: @DISCHARGEMEDLIST@Activity: Activity as tolerated and PT/OT per Home HealthDiet: Regular DietWound Care: None neededFollo w-up:to follow in office in one weekGeaustin Canas MD Name Value Range Interpretation Code Description Data Melani rce(s) Supporting Document(s ) ID Date Data Source [id number] 12/09/2019 02:14:04 PM EDT [facility] referral made. Walker order faxed t o [facility].[place] [facility] e[facility] pts insurance.Faxed to Moriah at [facility] at FAX [phone]. She reports they ne ed to get authfor walker. Have instucted pt to buy own walker IF not authorized.He i s agreeable to buying walker if needs to.Care Management InterventionsPCP Verified by CM: YesTransition of Care Consult (CM Consult): [facility] Home Car e: YesCurrent Support Network: Own Home, Lives with SpouseThe Patient and/or Prachi ent Comedian was Provided with a Choice of Providerand Agrees with the Discharge Plan?: YesFreedom of Choice List was Provided with Basic Dialogue that Suppor ts thePatient's Individualized Plan of Care/Goals, Treatment Preferences and Sh aresthe Quality Data Associated with the Providers?: YesVeteran Resource Informat ion Provided?: RefusedDischarge LocationDischarge Placement: Home with h [facility](ACCEPTED BY [facility])Pt is discharged , picking him up. reports she has phone number tomake pt a follow up psych appt. [facility] to visit. will buy walker if not able to get thru [facility].Post dc note 12/08[employer] reports 50% copay - they lef t message on 's phone.I also, left a message with my call back number for any questions. hadreported to me she planned on buying a walker and would ret urn if insurance paidfor one. Name Value Range Interpretation Code Description Data Melani rce(s) Supporting Document(s ) ID Date Data Source [id number] 12/08/2019 03:06:17 PM EDT [facility] I have reviewed discharge instructions w ith [...] Supporting Document(s ) ID Date Data Source [id number] 12/08/2019 03:02:56 PM EDT [facility] Per your note, pt with acute encephalopa thy and toxic Serum [place] level.Please specify the type of encephalopathy in yo ur progress notes: Toxic encephalopathy due to lithium Metabolic encephalopathy due to Other cause (please specify) Clinically unable to determine UnknownPLEASE DOCUM ENT ANY ADDITIONAL DIAGNOSES AND/OR SPECIFICITY IN THE PROGRESSNOTES AND/OR DISCHARGE SUMMARY. Name Value Range Interpretation Code Description Data Melani rce(s) Supporting Document(s ) ID Date Data Source [id number] 12/08/2019 02:40:45 PM EDT [facility] Problem: SuicideGoal: *STG: Remains safe in hospital12/08/2019 1440 by Ru Mosher: Resolved/Met12/08/20191438 by Ru Mosher: Progressing Towards GoalGoal: *STG: Seeks staff when feeling s of self harm or harm towards others arise12/08/2019 1440 by Ru Mosher : Resolved/Met12/08/20191438 by Ru Mosher: Progressing Towards GoalGoa l: *STG: Attends activities and groups12/08/2019 1440 by Anup Mosher e: Resolved/Met12/08/20191438 by Ru Mosher: Progressing Towards GoalGoa l: *STG: Verbalizes alternative ways of dealing with maladaptivefeelings/behavio rs12/08/2019 1440 by Basilio Moshercome: Resolved/Met12/08/2019 1439 by Glenys Mosher Outcome: Progressing Towards GoalGoal: *STG/LTG: Complies with medication thera py12/08/2019 1440 by Basilio Moshercome: Resolved/Met12/08/2019 1439 by Glenys Mosher Outcome: Progressing Towards GoalGoal: *STG/LTG: No longer expresses self destr uctive or suicidal thoughts12/08/2019 1440 by Basilio Moshercome: Resolved/Met12/08/2019 1439 by Ru Mosher: Progressing Towards GoalGoal: *LTG: Identifies avGigalocal resources12/08/2019 1440 by Basilio Moshercome: Resolved/Met12/08/2019 1439 by Basilio Moshercome: Progressing Towards GoalGoal: *LTG: Develops proact sarah suicide prevention plan12/08/2019 1440 by Basilio Moshercome: Resolved/Met12/08/2019 1439 by Basilio Moshercome: Progressing Towards GoalGoal: Interventions12/08/2019 1440 by Ru Mosher: Resolved/Met12/08/2019 143 by Glenys Mosher Outcome: Progressing Towards GoalProblem: Patient Education: Go to Patient Educati on ActivityGoal: Patient/Family Education12/08/2019 1440 by Basilio Mosher come: Resolved/Met12/08/2019 143 by Ru Mosher: Progressing Towards GoalPro blem: Falls - Risk ofGoal: *Absence of FallsDescription: Document Carmen Fall R isk and appropriate interventions in [facility].12/08/2019 1440 by Divya Mosherome: Resolved/MetNote: Fall Risk Interventions:Mobility Interventions: Be d/chair exit alarmMentation Interventions: Door open when patient unattendedMedicat ion Interventions: Assess postural VS orthostatic hypotension, Patient tocall before getting OOBElimination Interventions: Bed/chair exit alarm, Call light in reac h, Stay WithMe (per policy)History of Falls Interventions: Bed/chair exit alarm, Con sult care managementfor discharge planning, Evaluate medications/consider consulting pharmacy, Roomclose to nurse's station12/08/2019 143 by Ashish Mosher me: Progressing Towards GoalNote: [...] Patient/Family Education12/08/2019 1440 b y Ru Mosher: Resolved/Met12/08/20191438 by Ru Mosher: Progressing T lizbethards GoalProblem: Pressure Injury - Risk ofGoal: *Prevention of pressure injuryDe scription: Document Harsh Scale and appropriate interventions in [facility] t.12/08/2019 1440 by Ru Mosher: Resolved/MetNote: Pressure [...] 30 degrees or less, Lift sheet, Minimize layers12/08/2019 143 by Ru Mosher: Progressing Towards GoalNote: Pressure [...] 0 by Ru Mosher: Resolved/Met12/08/2019 1439 by Basilio Moshercome: Progressing T owards GoalGoal: *Fluid volume balance12/08/2019 [...] Education ActivityGoal: Patient/Family E ducation12/08/2019 1440 by Divya MosheryOutcome: Resolved/Met12/08/2019 1439 by Glenys Mosher Outcome: Progressing Towards Goal Name Value Range Interpretation Code Description Data Melani rce(s) Supporting Document(s ) ID Date Data Source [id number] 12/08/2019 02:40:17 PM EDT [facility] Problem: SuicideGoal: *STG: Remains safe in [...] [facility]Outcome: Progressing Toward s GoalNote: Fall Risk Interventions:Mobility Interventions: Bed/chair exit alarmMenta tion Interventions: Door open when patient unattendedMedication Interventions: Asse ss postural VS orthostatic hypotension, Patient tocall before getting OOBElimina tion Interventions: Bed/chair exit alarm, Call light in reach, Stay WithMe (per po darvin)History of Falls Interventions: Bed/chair exit alarm, Consult care manag ementfor discharge planning, Evaluate medications/consider consulting pharmacy , Roomclose to nurse's stationProblem: Patient Education: Go to Patient Educati on ActivityGoal: Patient/Family EducationOutcome: Progressing Towards Go alProblem: Pressure Injury - Risk ofGoal: *Prevention of pressure injuryDescriptio n: Document Harsh Scale and appropriate interventions in [facility].Outcome: P rogressing Towards GoalNote: Pressure [...] Supporting Document(s ) ID Date Data Source [id number] 12/08/2019 01:18:54 PM EDT [facility] General Daily Progress NoteAdmit Date: Hospital day: .tdSubjective:Psycgm Neuro,and PT assessments reviewed. Patie nt qualifies for discharge. Wifecalled, will bring in clothes. New medical regimen di scussed with the . Willneed [place] level later this week.Current Facility-Adminis tered MedicationsMedication [...] past 8 hrs: BP Temp Pulse Resp NoR41412/07 0816 - - - - 96 %12/08/19 [...] initial encounter (12/05/2019)Active Problems: Encephalopathy acute (12/05/2019) Dzo-pxxw-zjbrkeo adve rse reaction to medication (12/05/2019)Plan: day of discharge. Name Value Range Interpretation Code Description Data Melani rce(s) Supporting Document(s ) ID Date Data Source [id number] 12/08/2019 12:09:30 PM EDT [facility] Problem: Mobility Impaired (Adult and Pe [...] with RW within6 visits.Note:PHYSICAL THERAPY ROSIO LUATIONPatient: Anna Bray (49 y.o. male)Date: 12/08/2019Primary Diagnosis: E ncephalopathy acute [G93.40]Qqd-skzf-yrwttsu adverse reaction to medication [T88.7XXA ]Tlh-dgcw-ztmpgel adverse reaction to medication [T88.7XXA]Precautions: Fall ASSESSMENT [...] morbidi ty or mortality cardiac cath at [facility] approx 6-8 months ago Other [...] NoneCritical Beh avior:Neurologic State: AlertOrientation Level: Oriented Y2Wwxivsuls: Appropriate for age attention/concentration;Follows commandsSafety/Judgement: Decreased awar [...] therapy, but is neutral abouthis/her participation.[] Valerio cantrell is unable to participate in goal setting and plan of care.Thank you for t his referral.Pritesh Garcia Time Calculation: 14 mins Name Value Range Interpretation Code Description Data Melani rce(s) Supporting Document(s ) ID Date Data Source [id number] 12/08/2019 11:48:26 AM EDT [facility] Name Value Range Interpretation Description Data Sup porting Code Source(s) Document(s ) Glucose 132 MG/DL 65-110 Above high normal [facility] - Good [Mass/volume] [employer] in Blood by [facility] Automated test strip ID Date Data Source [id number] 12/08/2019 10:35:45 AM EDT [facility] S/O Patient has shown improvement. He re ports that medications are helping him.He denies any side effectsHe denies any cecilia cidal thoughtsHe reports that he sees a psychiatrist [facility] 300 mg bid [place] level in two days Will increase Zyprexa 5 mg Will follow up as requested Name Value Range Interpretation Code Description Data Melani rce(s) Supporting Document(s ) ID Date Data Source [id number] 12/08/2019 07:28:52 AM EDT [facility] Bedside and Verbal shift change report cristi bolanos to SUSI Hurley (oncoming nurse) Annalise DE LEON RN (offgoing nurse). Repor t included the followinginformation SBAR, Kardex, MAR and Recent Results. Name Value Range Interpretation Code Description Data [facility] rce(s) Supporting Document(s ) ID Date Data Source [id number] 12/07/2019 08:26:02 PM EDT [facility] Problem: Falls - Risk ofGoal: *Absence o [...] Name Value Range Interpretation Code Description Data [facility] rce(s) Supporting Document(s ) ID Date Data Source [id number] 12/07/2019 07:05:28 PM EDT [facility] Verbal shift change report given to Chandrakant Cox RN (oncoming nurse) by Steven Villalobos RN (offgoing nurse). Report inc luded the following information SBAR, Kardex,Intake/Output, MAR, Recent Result s and Cardiac Rhythm on telemetry. Name Value Range Interpretation Code Description Data [facility] rce(s) Supporting Document(s ) ID Date Data Source [id number] 12/07/2019 01:30:56 PM EDT [facility] Trent Jacob MD[address] [place] [address] [id number] Progress NotePatient: Anna Bray Sex: male DOA: 12/05/2019Date of : [...] (LOVENOX) injection 40 mg 40 mg SubCUTAneous [id number]:Visit VitalsBP 153/85 (BP 1 Location: Left arm, BP Prachi ent Position: At rest)Pulse 96Temp 98.7 F (37.1 C)Resp 20Ht 5' 5.75" (1.67 m)Wt 3 01 lb 1.6 oz (136.6 kg)SpO2 96%BMI 48.97 kg/m Body mass index is 48.97 kg/m .Patient V itals for the past 24 hrs: Temp Pulse Resp BP JuE91412/07/19 1249 - 96 - 153/85 - 0 [...] (36.7 C) 98 18 (!) 143/100 96 %12/06/192054 98.8 F (37.1 C) 95 15 143/90 95 % 12/06/190 - - - - 95 %12/06/19 1547 [...] the time notated as "note time" in [facility]. (It is not time stamped separately [...] are unremarkable in size configuration for p atient'bill. The fourth ventricle is midline. No acute [...] Neuropathic pain of shoulder M79.2 Seizure disorder ([facility]) G40.909 Spells [id number] Severe obesity ([facility]) E66.01 Depression F32.9 Anxiety F41.9 Bipolar disorder (HCC) F31.9 Depressive disorder F32.9 Status post g astric bypass for obesity Z98.84 Morbid obesity (HCC) E66.01 Mixed anxiety and depressive disorder F41.8 Vitamin D deficiency E55.9 Bipolar disorder with severe depression ([facility]) F31.4 Encephalopathy acute G93.40 Adverse drug reaction, ini tial encounter T50.905A Bob-cysw-hkpcndk adverse reaction to medication T88.7XXA 49 year [...] Supporting Document(s ) ID Date Data Source [id number] 12/07/2019 01:02:36 PM EDT [facility] Pt seen and discussed with Dr Canas .Pt is tearful flat and denies any suicidal thoughts , has been depressed withlithiu m on hold , No Vraylar and he is unable to get [facility] at [facility] And no w will be with [facility] with Dr Womack his lithium level is un therape utic range I will start on lithium , add 2.5mg of zyprexa and lower his klonopin And increase his elavil to 200 mg HSWill get pt followed up with Psychiatry Name Value Range Interpretation Code Description Data Melani rce(s) Supporting Document(s ) ID Date Data Source [id number] 12/07/2019 12:52:32 PM EDT [facility] Problem: Fluid Volume - Risk of, Imbalan cedGoal: *Balanced intake and outputOutcome: Progressing Towards GoalProblem: Patient Education: Go to Patient Education ActivityGoal: Patient/Family EducationOu tcome: Progressing Towards Goal Name Value Range Interpretation Code Description Data Melani rce(s) Supporting Document(s ) ID Date Data Source [id number] 12/07/2019 12:45:20 PM EDT [facility] [facility] Problem: Falls - Risk ofGoal: *Absence o f FallsDescription: Document Carmen Fall Risk and appropriate interventions in theflow sheet.Outcome: Progressing Towards GoalNote: Fall Risk Interventions:Mentation Interv entions: Bed/chair exit alarm, Adequate sleep, hydration, paincontrol, Door open when patient unattended, Evaluate medications/considerconsulting pharmacy, More frequent rounding, Increase mobility, Toiletingrounds, Update white boardViv close to nurse's stationMedication Interventions: Bed/chair exit [...] Bra den Scale and appropriate interventions in [facility].Outcome: Progressing Toward s GoalNote: Pressure Injury Interventions:Sensory [...] Minimize layers, Apply protective barrier,creams and emollientsProblem: Pa tient Education: Go to Patient Education ActivityGoal: Patient/Family EducationOu tcome: Progressing Towards GoalProblem: HypertensionGoal: *Blood pressure within specified parametersOutcome: Progressing Towards GoalGoal: *Fluid volume balanceO utcome: Progressing Towards GoalGoal: *Labs within defined limitsOutcome: Progressin g Towards Goal Name Value Range Interpretation Code Description Data Melani rce(s) Supporting Document(s ) ID Date Data Source [id number] 12/07/2019 12:24:47 PM EDT [facility] General Daily Progress NoteAdmit Date: Hospital [...] injection 40 mg 40 mg SubCUTA neous W89BPkaifhymw:Patient Vitals for the past 8 hrs: BP Temp Pulse Resp LoF28612/06 0956 147/86 98.7 F (37.1 C) 95 [...] initial encounter (12/05/2019)Active Problems: Encephalopathy acute (12/05/2019) Ulq-tgmp-bdviwel adve rse reaction to medication (12/05/2019)Plan:To increase activity, diet,klonopin. Start Losartan Name Value Range Interpretation Code Description Data Melani rce(s) Supporting Document(s ) ID Date Data Source [id number] 12/07/2019 10:13:28 AM EDT [facility] LTM EEG supervisor assembly room DC'd per Dr. Jacob. Name Value Range Interpretation Code Description Data Melani rce(s) Supporting Document(s ) ID Date Data Source [id number] 12/07/2019 10:08:27 AM EDT [facility] [address]VDZBNLN: ANNA BRAYMRN: [id number]: [id number]#: [id number] DATE: 12/05/2019LONG TERM MONITORING VIDEO TARGET TRIMMER: Riky Rodriguez HISTORY: The patient is a [...] montages. Digital analysis was performed employing an IntenseDebate neuralnetwork program with parameterization and statistical analysi s. Analysis toolsutilized include compressed spectral array (CSA), XL spike detectors , and XLevent detector. Please note that the reading physician had access to review t hedata throughout the recording and a daily report was generated on each day ofthe r ecording. To eliminate confusion from the electronic medical record, thedaily repo rts were consolidated into one full report. Patient managementdecisions were made in real time during the course of the recording as deemedappropriate.BACKGROUND ACTIVITY : The awake record is well organized and symmetric, andconsists primarily of high amplitude beta with admixed alpha frequencies.A 7-7.5 Hz posterior dominan t rhythm is seen, that attenuates with eye opening.There was vhai-rp-kpsxiegh gener alized background slowing.There was no clear focal slowing.ACTIVATION TECHNIQUES: Ph otic stimulation and hyperventilation were notperformed.SLEEP: During drowsiness, there is mild attenuation and slowing of thebackground rhythm. There was normal sleep seen including symmetric vertexwaves, sleep spindles, and K-complexes.OTHER AC TIVITY: There were no clear epileptiform discharges and no seizures orclinical ev ents recorded.DIGITAL ANALYSIS: Variable spectral pattern without significant lef n-cy-efbifafvddgjjxdr. Spikes were artifact in nature.DECEMBER 06 DAILY [...] the awake and asleep states due to nrwm-bk-xleejalp diffuse cerebraldysfunc tion that improves to mild over the course of the recording. TRENT JACOB, MDDD: #12/06/2019 10:21:35/SS /[id number]/[id number] #: [id number] / [id number] Name Value Range Interpretation Code Description Data Melani rce(s) Supporting Document(s ) ID Date Data Source [id number] 12/07/2019 07:45:20 AM EDT [facility] Bedside and Verbal shift change report cristi Dove RN (3Loria) (oncomingnurse) by Vy Green RN (offgoing nurse). Report included the following information SBAR, Kardex, MARand Recent Results. Name Value Range Interpretation Code Description Data Melani rce(s) Supporting Document(s ) ID Date Data Source [id number] 12/07/2019 07:22:41 AM EDT [facility] All leads and head wrapping intact. Day 2 LTM complete. Awaiting instructions tocontinue for day 3 or DC. Name Value Range Interpretation Code Description Data [facility] rce(s) Supporting Document(s ) ID Date Data Source [id number] 12/07/2019 05:19:11 AM EDT [facility] Name Value Range Interpretation Description Data Sup porting Code Source(s) Document(s ) Sodium 138 136-145 [facility] [Moles/volume] mmol/L [facility] Serum or Hospital Plasma Potassium 3.5 3.5-5.1 [facility] [Moles/volume] mmol/L [facility] in Serum or Hospital Plasma Chloride 106 98-107 [facility] [Moles/volume] mmol/L [facility] in Serum or Hospital Plasma Carbon 27 21-32 [facility] dioxide, total mmol/L [facility] [Moles/volume] Hospital in Serum or Plasma Anion gap in 10 10-20 [facility] Serum or mmol/L [facility] Plasma Hospital Glucose 140 74-106 Above high normal [facility] [Mass/volume] mg/dL [facility] in Serum or Hospital Plasma Urea nitrogen 19 mg/dL 7-18 Above high normal [facility] [Mass/volume] [facility] in Serum or Hospital Plasma Creatinine 0.94 0.70-1.3 [facility] [Mass/volume] mg/dL 0 [facility] in Serum or Hospital Plasma Glomerular >60 [facility] filtration [facility] rate/1.73 sq M Hospital predicted among blacks [Volume Rate/Area] in Serum or Plasma by Creatinine-bas ed formula (MDRD) Glomerular >60 [facility] filtration [facility] rate/1.73 sq M Hospital predicted among non-blacks [Volume Rate/Area] in Serum or Plasma by Creatinine-bas ed formula (MDRD) (NOTE)Estimated GFR is calculated using the Modification of Diet in RenalDisease (MDRD) Study equation, reported for both Americans(GFRAA) and non- Americans (GFRNA), and normalized to 1.7 5y8cjol surface area. The physician must decide which value applies tothe patient . The MDRD study equation should only be used inindividuals age 18 or older. It has no t been validated for thefollowing: women, patients with serious comorbid co nditions,or on certain medications, or persons with extremes of body size,muscl e mass, or nutritional status. Calcium [Mass/volume] in Serum 9.1 mg/dL 8.5-10.1 [facility] or Plasma Hospital ID Date Data Source [id number] 12/06/2019 08:12:24 PM EDT [facility] Bedside and Verbal shift change report cristi Loyd RN (oncoming nurse) Estephania Wakefield RN (offgoing nurse). Report included the followinginformation SBAR, Kardex, MAR, Recent Results, and Med Rec Status. Name Value Range Interpretation Code Description Data Melani rce(s) Supporting Document(s ) ID Date Data Source [id number] 12/06/2019 04:57:12 PM EDT [facility] General Daily Progress NoteAdmit Date: Hospital [...] (LOVENOX) injection 40 mg 40 mg SubCUTAneous E76NYzjkotrcd:Patient Vi tals for the past 8 hrs: BP Temp Pulse Resp MeX60012/06/19 1547 (!) 164/100 99.6 F (3 7.6 [...] Time: 12/06/19 4:25 AMResult Value Ref Range [place] level 1.09 0.6 - 1.2 MMOL/L Xr [...] ventricles are unremarkable in size configurationfor pa tieqiana's age. The fourth ventricle is midline. No [...] initial encounter (12/05/2019)Active Problems: Encephalopathy acute (12/05/2019) Yed-tkrj-ojdzpyt adve rse reaction to medication (12/05/2019)Plan:To reduce iv fluids, repeat lasix Name Value Range Interpretation Code Description Data Melani rce(s) Supporting Document(s ) ID Date Data Source [id number] 12/06/2019 04:14:48 PM EDT [facility] Psychiatry Consult NoteSubjective:Patien t: Anna Bray Age: 49 y.o. : 1970Date of Evaluation: 12/06/2019Re ason for Referral: Anna Bray was admitted for evaluation of lethargy,weak [...] of morbidity or mortality cardiac cath at [facility] approx 6-8 months ago Other unknown and unspecified cause of morbidity or mortal ity concussions Other unknown and unspecified cause of morbidity or mortal ity "periodic disorientation" Other unknown and unspecified cause of morbidity or mo rtality anxiety Psychiatric disorder anxiety, depressionPsychiatric History: Patient reported he was receiving care in outpatient from [facility] psychiatrist t did not discuss details.Substance Use History:Social HistorySubstance and Sexu al ActivityAlcohol Use No Frequency: Never Drinks per session: 1 or 2 Binge freque ncy: NeverSocial HistorySubstance and Sexual ActivityDrug Use NoObjective:Vitals/Phys ical Assessment:Patient Vitals for the past 8 hrs: BP Temp Pulse Resp PdT25412/06/19 081 3 (!) 153/94 100.4 F (38 [...] encounter (12/05/2019)A ctive Problems: Encephalopathy acute (12/05/2019) Ezn-eect-awrhutl adverse re action to medication (12/05/2019)Plan:No current [...] Supporting Document(s ) ID Date Data Source [id number] 12/06/2019 01:18:16 PM EDT [facility] Trent Jacob MD[address], [address] [place] [address] [phone].[facility] Progress NotePatient: Anna Bray Sex: male DOA: 12/05/2019Date of : 1970 Age: 49 y.o. LOS: LOS: 1 daySubjective:Awake, alert, tremulous, no current complaintsEEG w/ mild to mod gen slowREVIEW OF SYSTEMS: NO CP, SOB, N,V,D, F,CCurrent Facility-Administered MedicationsMedication Dose Route Frequen cy 0.9% sodium chloride infusion 125 mL/hr IntraVENous CONTINUOUS enoxaparin (LOVE NOX) injection 40 mg 40 mg SubCUTAneous S38GNnsagulfq:Visit VitalsBP (!) 153/94 (BP 1 Location: Left arm, BP Patient Position: At rest)Pulse 100Temp 100.4 F (38 C)Resp 18Ht 5' 5.75" (1.67 m)Wt 300 lb (136.1 kg)SpO2 96%BMI 48.79 kg/m Body mass index is 48.79 kg/m .Patient Vitals for the past 24 hrs: Temp Pulse Resp BP QxJ95612/06/19 0813 100.4 F (38 C) 100 18 (!) 153/94 96 %12/06/19 0445 99.6 F (37.6 C) - - - -12/06/19 0439 (!) 100.6 F (38.1 C) (!) 103 19 (!) 149/93 97 %12/06/19 00 47 - - - 138/90 -12/05/19 2103 97.5 F (36.4 C) 73 18 - -12/05/192056 99.3 F (37.4 C) 98 18 (!) [...] past 24 hours were reviewed both during [facility] daily workflow process and at the time notated as "note time" in [facility]. (It is not time stamped separately [...] Time: 12/06/19 4:25 AMResult Value Ref Range [place] level 1.09 0.6 - 1.2 MMOL/LCT Results (most recent):Results from Hospital [facility] encounter on 12/05/19CT HEAD WO CONT Narrative [...] images were created on an independent workstation. Utilizinganita walsh the examination was performed to optimize [...] the brain.MRI Results (most recent):Results from Hospital [facility] unt encounter on 12/05/19MRI BRAIN WO CONT Narrative [...] hic pain of shoulder M79.2 Seizure disorder ([facility]) G40.909 Spells [id number] Severe ob esity ([facility]) E66.01 Depression F32.9 Anxiety F41.9 Bipolar disorder ([facility]) F31.9 Dep ressive disorder F32.9 Status post gastric bypass for obesity Z98.84 Morbid obesit y ([facility]) E66.01 Mixed anxiety and depressive disorder F41.8 Vitamin D deficiency E55 .9 Bipolar disorder with severe depression ([facility]) F31.4 Encephalopathy acute G93.40 Adverse drug reaction, initial encounter T50.905A Dvz-gxuu-etrfgjk adverse react ion to medication T88.7XXA49 year [...] Supporting Document(s ) ID Date Data Source [id number] 12/06/2019 11:43:34 AM EDT [facility] LTM study day 1 complete. All leads and head wrapping intact. Day 2 LTM studycommenced and LIVE via WIFI on [facility]. 06/28 Name Value Range Interpretation Code Description Data Melani rce(s) Supporting Document(s ) ID Date Data Source [id number] 12/06/2019 10:48:32 AM EDT [facility] Care Management InterventionsPCP Verifie d by CM: YesCurrent Support Network: Own Home, Lives with SpouseThe Patient and/o r Patient Comedian was Provided with a Choice of Providerand Agrees with the Di sentara [facility] centerrjacqueline Plan?: YesFreedom of Choice List was Provided with Basic Dialogue that Suppor ts thePatient's Individualized Plan of Care/Goals, Treatment Preferences and Sh aresthe Quality Data Associated with the Providers?: YesVeteran Resource Informat ion Provided?: RefusedDischarge LocationDischarge Placement: HomeCASE YUE LORENZ PSYCHOSOCIAL ASSESSMENTBrian F Asa Admission Marlon e: 12/05/2019MRN: [id number] of : 1970Current date: 12/06/2019 DISCHARGE PLAN: Patient is a 49 year old male admitted to [facility]. CM attempted toreach hi m via room phone and was unsuccessful. CM spoke with the spouses ,Blanca at . Prior to hospitalization patient was independent of allADL's and ambulati ng prior to this incident. During this most recent episode,patient became lethargic with increasing confusion, weakness, and experiencingtremors in his legs. Karsten faust has a walker and has been out of work sinceDe2018 due to his depression .CM discussed advance directives. Patient has no living will and health careproxy. She wishes for him to remain a full code.CM discussed discharge planning. PT will ev aluate for discharge needs. Familyamenable to services. Open for SNF. Family [facility] like [facility]. CM CCLINKD. CM willfollow.Patient Information:Patients Preferred Name: Gillian Guadalupe Arrived Via: StretcherInformation Obtained From: Spouse(Spouse Blanca)Prachi [...] YesLiving Alone: NoPCP: Ritika Canas MDAdmitting Provider: Ritika lobo MDINOVA ALEXANDRI[facility] CRIMINAL INTELLIGENCE ANALYST: N/APayor: P ayor: [facility] HEALTH PLAN / Plan: [facility] HEALTH PLAN /Product Type: [facility] /Secondary Payor : @SECINSGROUPNAME@Encephalopathy acute [G93.40]Ksf-qvrk-phylnsw adverse reactio n to medication [T88.7XXA]Rol-ifbd-vvluhfp adverse reaction to medication [T88.7XXA ]Patient Active Problem ListDiagnosis Code H/O gastric bypass Z98.84 Insomnia G47. 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 Seizure disorder (HCC) G40.909 Spells I DT1527 Severe obesity (HCC) E66.01 Depression F32.9 Anxiety F41.9 Bipolar disorder (HCC) F31.9 Depressive disorder F32.9 Status post gastric bypass for ob esity Z98.84 Morbid obesity (HCC) E66.01 Mixed anxiety and depressive disorder F4 1.8 Vitamin D deficiency E55.9 Bipolar disorder with severe depression (HCC) F3 1.4 Encephalopathy acute G93.40 Adverse drug reaction, initial encounter T50.905 A Qfa-djmw-koypbxe adverse reaction to medication T88.7XXASocial HistorySubstan ce [...] Supporting Document(s ) ID Date Data Source [id number] 12/06/2019 07:40:06 AM EDT [facility] 1938: Patient found in bed resting quiet [...] Supporting Document(s ) ID Date Data Source [id number] 12/06/2019 05:07:27 AM EDT [facility] Name Value Range Interpretation Description Data Sup porting Code Source(s) Document(s ) [place] 1.09 0.6-1.2 [facility] - [facility] [Moles/volu MMOL/L [facility] me] in Hospital Serum or Plasma ID Date Data Source [id number] 12/05/2019 07:59:09 PM EDT [facility] Name Value Range Interpretation Description Data Sup porting Code Source(s) Document(s ) Ammonia 16 UMOL/L 11-32 [facility] [Moles/volum [facility] e] in Plasma Hospital ID Date Data Source [id number] 12/05/2019 07:56:38 PM EDT [facility] Name Value Range Interpretation Description Data Sup porting Code Source(s) Document(s ) Lactate 0.9 0.4-2.0 [facility] [Moles/volu MMOL/L [facility] me] in Hospital Serum or Plasma ID Date Data Source [id number] 12/05/2019 06:42:57 PM EDT [facility] LTM 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 Day 1 LTM comm enced and LIVE via WIFI on [facility] 06/28 Name Value Range Interpretation Code Description Data Melani rce(s) Supporting Document(s ) ID Date Data Source [id number] 12/05/2019 06:07:34 PM EDT [facility] [id number] [facility] 4T OR THOPEDICS [address] [facility] [address] [phone] Anna Bray (Male) [id number] ES I 3 ED Dispo:ADMIT Chief Complaint: Fall, Fatigue Diagnosis: Altered mental status, unspecified altered mental status type [] Adverse drug reaction, initial encounter [] Encephalopathy acute [] Drr-uqiq-ajwnaur adverse effect of medication, subsequent encounter [] Bipolar disorder with severe depression (HCC) [] H/O gastric bypass [] Curre nt Providers: Attending: Patsy Manzo; Kristy Otero; Cristi Canas Consulting Provider: Jose Centeno; Cristi Canas; Javier hKan; Cristi Frazier Primary Nurse: BAILEY GambleN: [id number] 5 [phone] [employer] [phone] - [facility] MrnMRN: [id number] [employer] [phone] - [facility] Age SexDOB 1970 AGE 49 SEX Male Primary Care Provider: Ritika Canas MD Phone: Allergies: (No Known Allergies)Date Reviewed: 12/05/2019Reviewed by: Ritika Canas MD - Review CompleteED Provider Notes: All notesHNO ID: [id number]: Julio Manzo MDService: EMERGENCYAuthor Type: Physici anFiled: 12/05/19 1636Note Text:The history is provided by the patient and the EMS personnel.11:17 AM: Anna Bray is a 49 y.o. male with [...] of morbidity or mortality cardiac cath at [facility] approx 6-8 months ag o Other unknown and unspecified cause of morbidity or mortality concussions Other unknown and unspecifi ed cause of morbidity or mortality "periodic disorientation" Other unknown and unspecified cause of morbidi ty or mortality anxiety Psychiatric disorder anxiety, depressionPast Surgical History:Procedure Laterality Da te ABDOMEN SURGERY PROC UNLISTED gastric bypass 2009 HX GASTRIC BYPASS roue-en-y HX ORTHOPAEDIC 1986 a arthroscopic knee surgery HX ORTHOPAEDIC 1990 broken footFamily History:Problem Relation Age of Onset D edward Mother Heart Disease MotherSocial HistorySocioeconomic History Marital [...] week Gets together: Once a week Attends anglican service: More than 4 times per year [...] 102 97 95Resp: Temp: 98.8 F (37.1 C ) 97.9 F [...] visualiz ation of images, tracings, or specimens: yesElan Zimmer Dennis, MD, reviewed the patient's past history, allergies andhome medications as documented in the nursing chart.Labs:Recent Results (from the past 12 hour(s))EKG, 12 LEAD, INITIAL Collection Time: 12/05/19 11:41 AMResult Value Ref Range Ventricular Rat e 102 BPM Atrial Rate 102 BPM P-R Interval 174 ms QRS Duration 104 ms Q-T Interval 395 ms QTC Calculation (Bez et) 515 ms Calculated P Rayle 40 degrees Calculated R Rayle 41 degrees Calculated T Rayle 147 degrees Diagnosis Sinus tachycardiaProbable left atrial [...] Time: 12/05/19 12:38 PMResult Value Ref Range [place] level 1 .53 (HH) 0.6 - 1.2 MMOL/LLACTIC ACID Collection Time: 12/05/19 12:40 PMResult Value Ref Range Lactic acid 1.1 0.4 - 2.0 MMOL/LEKG:Sinus tachycardia at 100 BPM, normal axis, nothing acute.Interpreted by Julio Manzo MD11:20 AM monitoring tech reading shows sinus tachycardia at 100 BPM.Interpreted [...] brain. Narrative: CT HEAD W/O CONTRASTPRIOR: M monietiple: Most recent October 29, 2019: "No acute [...] surgical mask on upon entering the room: ririProrubens grimm, including:Surgical mask: yesN95 mask: yesEye Protection: yesGloves: yesGown: yesPatient was seen during Covi d- pandemic which may have affected standardof care.Final Impression/Diagnosis:Encounter Diagnoses ICD-10-CM ICD-9-CM1. Altered mental status, unspecified altered mental status type R41.30727.97Patient c ondition at time of disposition: StableI [...] mgcapsule Indications : bipolar depression 09/03/19 Provider, Historicallithium carbonate 150 mg capsule Take 300 mg by mouth two (2) times daily(with meals). Other, Phys, MDclonazePAM (KLONOPIN) 2 mg tablet Take 1 mg by mouth two (2) linda es dailyas needed. Other, Phys, MDMaoJulio MD I, Joseph Silber, am serving as a scribe to document [...] thediagnostic studies, unless otherwise noted.+ED Orde rs [id number] DIRECTOR [facility] - ED ONLY [#[id number]] Priority: STAT Class: Hospital Performe d Standing Order Information Remaining Occurrences:0 Interval:Continuous Last release d:12/05/2019 Released orders: SunDec 05, 2019 11:20 AM by: JULIO MANZO Type: -> Bedside N [id number] PULSE OXIMETRY CONTINUOUS [#[id number]] Priority: STAT Class: Hospital Performe d Standing Order Information Remaining Occurrences:0/1 Interval:CONTINUOUS Last release d:12/05/2019 Released orders: SunDec 05, 2019 11:20 AM by: JULIO MANZO [id number] PULSE OXIMETRY SPOT CHECK [#[id number]] Priority: STAT Class: Hospital Performed Standing Order Inf ormation Remaining Occurrences:0/1 Interval:ONE TIME Last released:12/05/2019 Release d orders: SunDec 05, 2019 11:20 AM by: JULIO MANZO [id number] OBTAIN OLD EKG [ #[id number]] Priority: Routine Class: Hospital Performed Standing Order Information Remainin g Occurrences:0/1 Interval:ONE TIME Last released:12/05/2019 Released orders : SunDec 05, 2019 11:20 AM by: JULIO MANZO [id number] DIRECTOR [facility] - ED ONLY [# [id number]] Priority: STAT Class: Hospital Performed Type: -> Bedside Released on: 12/05/2019 11:20 AM [id number] PULSE OXIMETRY CONTINUOUS [#[id number]] Priority: STAT Class: Hospital Performe d Released on: 12/05/2019 11:20 AM [id number] PULSE OXIMETRY SPOT CHECK [#[id number]] Priori ty: STAT Class: Hospital Performed Released on: 12/05/2019 11:20 AM [id number] OBTAIN OLD EKG [#[id number]] Priority: STAT Class: Hospital Performed Released on: 12/05/2019 11:20 AM [id number] VITAL SIGNS PER UNIT ROUTINE [#[id number]] Priority: STAT Class: Hospital Performed Stand ing Order Information Remaining Occurrences:0/1 Interval:CONTINUOUS Last released :12/05/2019 Released orders: SunDec 05, 2019 2:41 PM by: RITIKA CANAS Comment:More frequent ly if Indicated. [id number] BEDREST, COMPLETE [#[id number]] Priority: STAT Class: H ospital Performed Standing Order Information Remaining Occurrences:0/1 Interval:CONTIN UOUS Last released:12/05/2019 Released orders: SunDec 05, 2019 2:41 PM by: RITIKA CANAS [id number] NOTIFY PROVIDER: VITAL SIGNS CHANGES [#[id number]] Priority: STAT Class: Hospital Performe d Standing [...] Less than 120 ml in 4 hours [id number] APPLY/MAINTAIN SEQUENTIAL COMPRESSIO* [# [id number]] Priority: STAT Class: Hospital Performed Standing Order Information Remaining Occurre nces:0/1 Interval:CONTINUOUS Last released:12/05/2019 Released orders: SunDec 05, 2019 2:41 PM by: RITIKA CANAS [id number] VITAL SIGNS PER UNIT ROUTINE [#[id number]] Priorit y: STAT Class: Hospital Performed Comment:More frequently if Indicated. Released on: 12/05/2019 2 :41 PM [id number] BEDREST, COMPLETE [#[id number]] Priority: STAT Class: Hospital Performe d Released on: 12/05/2019 2:41 PM [id number] NOTIFY PROVIDER: VITAL SIGNS CHANGES [#[id number]] Priority: STAT Class: Hospital Performed Temp -> [...] carmen rs Released on: 12/05/2019 2:41 PM [id number] APPLY/MAINTAIN SEQUENTIAL COMPRESSIO* [#[id number]] P riority: STAT Class: Hospital Performed Released on: 12/05/2019 2:41 PM [id number] RT--OXYGEN CANNULA [#[id number]] Priority: STAT Class: Hospital Performed Standing Order Information Remaining Occurrences:0/1 Interval:CONTINUOUS Last released:12/05/2019 Released o rders: SunDec 05, 2019 11:20 AM by: JULIO MANZO LPM -> 2 Indications for O2? -> CHEST PAIN [id number] RT--OXYGEN CANNULA [#[id number]] Priority: STAT Class: Hospital Performe d LPM -> 2 Indications for O2? -> CHEST PAIN Released on: 12/05/2019 11:20 AM [id number] DIET NPO [#[id number]] Canceled Priority: STAT Class: Hospital Performed Cancele d by RITIKA CANAS on SunDec 05, 2019 2:41 PM Reason: None Comment: Standing Order Information Remaining Occurrences:0/1 Interval:DIET EFFECTIVE NOW Last released:12/05/2019 Release d orders: SunDec 05, 2019 11:20 AM by: JULIO MANZO NPO options: -> With Meds [id number] DIET NPO [#[id number]] Canceled Priority: STAT Class: Hospital Performed Cancele d by RITIKA CANAS on SunDec 05, 2019 2:41 PM Reason: None Comment: NPO options: -> With Meds Released on: 12/05/2019 11:20 AM [id number] DIET NPO [#[id number]] Priority: S TAT Class: Hospital Performed Standing Order Information Remaining Occurrences:0/1 Inter haile:DIET EFFECTIVE NOW Last released:12/05/2019 Released orders: SunDec 05, 2019 2:41 PM by: RITIKA CANAS [id number] DIET NPO [#[id number]] Priority: STAT Class: H ospital Performed Released on: 12/05/2019 2:41 PM [id number] SALINE LOCK IV [#[id number]] Priority: STAT Class: Hospital Performed Standing Order Information Remaining Occurrences:0 /1 Interval:ONE TIME Last released:12/05/2019 Released orders: SunDec 05, 2019 11:20 AM by: JULIO MANZO IVT11 SALINE LOCK IV [#[id number]] Priority: STAT Cl ass: Hospital Performed Released on: 12/05/2019 11:20 AM [id number] METABOLIC PANEL, COMPREHENSIVE [# [id number]] Priority: STAT Class: ER Collect Standing Order Information Remaining Occurrences:0 /1 Interval:ONE TIME Last released:12/05/2019 Released orders: SunDec 05, 2019 11:20 AM by: JULIO MANZO [id number] CBC WITH AUTOMATED DIFF [#[id number]] Priority: STAT Cl ass: ER Collect Standing Order Information Remaining Occurrences:0/1 Interval:ONE TI ME Last released:12/05/2019 Released orders: SunDec 05, 2019 11:20 AM by: JULIO MANZO [id number] TROPONIN I [#[id number]] Priority: STAT Class: ER Collect Sta nding Order Information Remaining Occurrences:0/1 Interval:ONE TIME Last released:0 12/05/2019 Released orders: SunDec 05, 2019 11:20 AM by: JULIO MANZO [id number] MAGNESIUM [#[id number]] Priority: STAT Class: ER Collect Standing Order Information Remaining Occurrences:0/1 Interval:ONE TIME Last released:12/05/2019 Released orders : SunDec 05, 2019 11:20 AM by: JULIO MANZO [id number] LACTIC ACID [#[id number]] Priority: STAT Class: ER Collect Standing Order Information Remaining Occurrences:0/2 Interval:NOW THEN EVERY 4 HOURS Last released:12/05/2019 Released orders: SunDec 05, 2019 12:06 PM by: JULIO MANZO SunDec 05, 2019 11:20 AM by: JULIO MANZO [id number] PROTHROMBIN TIME + INR [#[id number]] Priority: STAT Class: ER Collect Standing Order Information Remain ing Occurrences:0/1 Interval:ONE TIME Last released:12/05/2019 Released orders : SunDec 05, 2019 11:20 AM by: JULIO MANZO [id number] URINALYSIS W/ RFLX MICROSCOPIC [# [id number]] Priority: STAT Class: ER Collect Standing Order Information Remaining Occurrences:0 /1 Interval:ONE TIME Last released:12/05/2019 Released orders: SunDec 05, 2019 11:20 AM by: JULIO MANZO [id number] METABOLIC PANEL, COMPREHENSIVE [#[id number]] Priority: STAT Cl ass: ER Collect Specimen Source: Plasma Specimen Collected: 12/05/2019 12:38 PM Resulting Agency: [facility] Test ID: MPL Released on: 12/05/2019 11:20 AM [id number] CBC WITH A UTOMATED DIFF [#[id number]] Priority: STAT Class: ER Collect Specimen Source: Whole Blood S pecimen Collected: 12/05/2019 12:38 PM Resulting Agency: [facility] Test ID: CBCXA Released on: 12/05/2019 11:20 AM [id number] TROPONIN I [#[id number]] Prior ity: STAT Class: ER Collect Specimen Source: Plasma Specimen Collected: 12/05/2019 12:38 PM Resultin g Agency: [facility] Test ID: TROIP Released on: 12/05/2019 11:20 AM [id number] MAGNESIUM [#[id number]] Priority: STAT Class: ER Collect Specimen Source : Plasma Specimen Collected: 12/05/2019 12:38 PM Resulting Agency: [facility] Test ID: MGPL Released on: 12/05/2019 11:20 AM [id number] LACTIC ACID [#[id number]] P riority: STAT Class: ER Collect Specimen Source: Plasma Specimen Collected: 12/05/2019 12:40 PM Resultin g Agency: [facility] Test ID: LAC Released on: 12/05/2019 11:20 AM [id number] PROTHR OMBIN TIME + INR [#[id number]] Priority: STAT Class: ER Collect Specimen Source: Plasma Spe cimen Collected: 12/05/2019 12:38 PM Resulting Agency: [facility] Test ID: APTHR R eleased on: 12/05/2019 11:20 AM [id number] URINALYSIS W/ RFLX MICROSCOPIC [#[id number]] Prior ity: STAT Class: ER Collect Specimen Source: Urine Specimen Collected: 12/05/2019 2:45 PM Resultin g Agency: [facility] Test ID: UA Released on: 12/05/2019 11:20 AM [id number] LITHIU M [#[id number]] Priority: STAT Class: ER Collect Standing Order Information Remaining Occurrences:0/1 Interval:ONE TIME Last released:12/05/2019 Released orders : SunDec 05, 2019 11:40 AM by: MECHELLE GAMBLE [id number] LITHIUM [# [id number]] Priority: STAT Class: ER Collect Specimen Source: Serum Specimen Collected: 12/05/2019 12 :38 PM Resulting Agency: [facility] Test ID: LI Released on: 12/05/2019 11:40 AM [id number] LITHIUM [#[id number]] Canceled Priority: STAT Class: ER Collect Canceled by SHIVANI MADSEN IN [place] on SunDec 05, 2019 11:42 AM Reason: Other Comment: Duplicate Standing Order Information Remaining Occurrences:0/1 Interval:ONE TIME Last released:0 12/05/2019 Released orders: SunDec 05, 2019 11:41 AM by: JULIO MANZO [id number] LITHIUM [#[id number]] Canceled Priority: STAT Class: ER Collect Specimen Collected: 12/05/2019 11:45 AM Resulting Agency: [facility] Test ID: LI Canceled by SHIVANI MADSEN IN [place] on SunDec 05, 2019 11:42 AM Reason: Other Comment: Duplicate Rele ased on: 12/05/2019 11:41 AM [id number] LACTIC ACID [#[id number]] Priority: STAT Cl ass: ER Collect Resulting Agency: [facility] Test ID: LAC Released on: 12/05/2019 12:06 PM [id number] AMMONIA [#[id number]] Priority: Routine Class: ER Collect Specimen Source: Blood Standing Order Information Remaining Occurrences:0/1 Interval:ONE TI ME Last released:12/05/2019 Released orders: SunDec 05, 2019 3:19 PM by: Javier KHAN [id number] AMMONIA [#[id number]] Priority: STAT Class: ER Collect Spe cimen Source: Blood Resulting Agency: [facility] Test ID: NH3 Released on: 12/05/2019 3:19 PM [id number] BILIRUBIN, CONFIRM [#[id number]] Priority: Routine Class : ER Collect Resulting Agency: [facility] Test ID: ICTO Standing Order Informat ion Remaining Occurrences:0/1 Released orders: SunDec 05, 2019 2:45 PM by: Automatic B atch Process [id number] BILIRUBIN, CONFIRM [#[id number]] Priority: Routine Class : ER Collect Specimen Source: Miscellaneous sample Specimen Collected: 12/05/2019 2:45 PM Resultin g Agency: [facility] Test ID: ICTO Released on: 12/05/2019 2:45 PM [id number] EKG, 12 LEAD, INITIAL [#[id number]] Priority: STAT Class: Hospital Performed Stand ing Order Information Remaining Occurrences:0/1 Interval:ONE TIME Last released:0 12/05/2019 Released orders: SunDec 05, 2019 11:20 AM by: JULIO MANZO Reason for Exam: -> Chest Pain [id number] EKG, 12 LEAD, INITIAL [#[id number]] Priority: STAT Class: H ospital Performed Resulting Agency: [facility] Test ID: [id number] Reason for Exam: -> Chest Pain Releas ed on: 12/05/2019 11:20 AM [id number] XR CHEST PORT [#[id number]] Priority: STAT Clas s: Hospital Performed Standing Order Information Remaining Occurrences:0/1 Interval:ONE TI ME Last released:12/05/2019 Released orders: SunDec 05, 2019 11:20 AM by: JULIO MANZO Reason for Exam -> Chest Pain [id number] CT HEAD WO CONT [#[id number]] Priority: S TAT Class: Hospital Performed Standing Order Information Remaining Occurrences:0/1 Inter haile:ONE TIME Last released:12/05/2019 Released orders: SunDec 05, 2019 11:20 AM by: JULIO MANZO Reason for Exam -> ams [id number] XR PELV AP ONLY [#[id number]] Priority: S TAT Class: Hospital Performed Standing Order Information Remaining Occurrences:0/1 Inter haile:ONE TIME Last released:12/05/2019 Released orders: SunDec 05, 2019 11:20 AM by: JULIO MANZO Reason for Exam -> fall [id number] XR CHEST PORT [#[id number]] Priority: STAT Class: Hospital Performed Specimen Collected: 12/05/2019 12:21 PM Resulting Agency: [facility] Test ID: [id number] Reason for Exam -> Chest Pain Released on: 12/05/2019 11:[id number] HEAD WO CONT [#[id number]] Priority: STAT Class: Hospital Performed Specimen Collected : 12/05/2019 12:43 PM Resulting Agency: [facility] Test ID: [id number] Reason for Exam -> ams R eleased on: 12/05/2019 11:20 AM [id number] XR PELV AP ONLY [#[id number]] Priority: STAT Class: Hospital Performed Specimen Collected: 12/05/2019 12:23 PM Resulting Agency: [facility] Test ID : [id number] Reason for Exam -> fall Released on: 12/05/2019 11:20 AM [id number] MRI BRAIN WO CONT [#[id number]] Priority: STAT Class: Hospital Performed Standing Order Information Remaining Occurrences:0/1 Interval:ONE TIME Last released:12/05/2019 Released orders : SunDec 05, 2019 3:19 PM by: JOSE KHAN Reason for Exam -> ams [id number] MRI BRA IN WO CONT [#[id number]] Priority: STAT Class: Hospital Performed Specimen Collected : 12/05/2019 5:03 PM Resulting Agency: [facility] Test ID: [id number] Reason for Exam -> ams R eleased on: 12/05/2019 3:19 PM [id number] CULTURE, BLOOD [#[id number]] Priority: Routi ne Class: ER Collect Specimen Source: Blood Standing Order Information Remaining Occurrences:0 /1 Interval:ONE TIME Last released:12/05/2019 Released orders: SunDec 05, 2019 11:20 AM by: JULIO [id number] CULTURE, BLOOD [#[id number]] Priority: STAT Cl ass: ER Collect Specimen Source: Blood Standing Order Information Remaining Occurrences:0/1 I nterval:ONE TIME Last released:12/05/2019 Released orders: SunDec 05, 2019 11:20 AM by: JULIO [id number] CULTURE, BLOOD [#[id number]] Priority: STAT Class: E R Collect Specimen Source: Blood Specimen Collected: 12/05/2019 12:38 PM Resulting Agency: [facility] Test ID: HBCS Released on: 12/05/2019 11:20 AM [id number] CULTURE, BLOOD [#[id number]] Priority: STAT Class: ER Collect Specimen Source: Blood Specimen Collected: 12/04 12:30 PM Resulting Agency: [facility] Test ID: HBCS Released on: 12/05/2019 11:20 AM CEFTRIAXONE 1 GRAM IVPB MBP [#[id number]] Priority: STAT Class: Normal An tibiotic Indications -> Sepsis of Unknown Etiology SODIUM CHLORIDE 0.9 % IV [#[id number]] Priority: STAT Class: Normal SODIUM CHLORIDE 0.9 % IV [#[id number]] Priority : STAT Class: Normal ENOXAPARIN 40 MG/0.4 ML SUB-Q SYRINGE [#[id number]] Priority: STAT Class: N ormal ENOXAPARIN 40 MG/0.4 ML SUB-Q SYRINGE [#[id number]] Priority: STAT Class: Normal FUROSEMIDE 10 MG/ML IJ SOLN [#[id number]] Priority: STAT Class: Normal CON53 IP CONSULT TO PS YCHIATRY [#[id number]] Priority: STAT Class: Hospital Performed Standing Order Information Remaining Occurrences:0/1 Interval:ONE TIME Last released:12/05/2019 Released orders : SunDec 05, 2019 11:42 AM by: JULIO MANZO Reason for Consult: -> si Did you call or spea k to the consulting provider? -> No Consult To -> si CON53 IP CONSULT TO PSYCHIATRY [#[id number]] Priority: STAT Class: Hospital Performed Reason for Consult: -> si Did you call or spea k to the consulting provider? -> No Consult To -> si Released on: 12/05/2019 11:42 AM CON62 IP CON SULT TO INTERNAL MEDICINE [#[id number]] Priority: STAT Class: Hospital Performed Standing Order Inf ormation Remaining Occurrences:0/1 Interval:ONE TIME Last released:12/05/2019 Release d orders: SunDec 05, 2019 2:16 PM by: CARLA OTERO Reason for Consult: -> Altered mental st atus, Dr. Canas to admit Did you call or speak to the consulting provider? -> Yes CON62 IP CONSULT TO INTERNAL MEDICINE [#[id number]] Priority: STAT Class: Hospital Performed Reason for Consu lt: -> Altered mental status, Dr. Canas to admit Did you call or speak to the consulting provider? -> Yes Released on: 12/05/2019 2:16 PM CON53 IP CONSULT TO PSYCHIATRY [#[id number]] Priority: STAT Class: Hospital Performed Standing Order Information Remaining Occurrences:0 /1 Interval:ONE TIME Last released:12/05/2019 Released orders: SunDec 05, 2019 2:41 PM by: RITIKA CANAS Reason for Consult: -> adverse med reaction Did you call or speak to t he consulting provider? -> No Consult To -> Dr Aguirre Schedule When? -> TODAY CON9 IP CONSULT TO N EUROLOGY [#[id number]] Priority: STAT Class: Hospital Performed Standing Order Information Remaining Occurrences:0/1 Interval:ONE TIME Last released:12/05/2019 Released orders : SunDec 05, 2019 2:41 PM by: RITIKA CANAS Reason for Consult: -> encephalopathy adverse drug reaction Did you call or speak to the consulting provider? -> No Consult To -> Dr Jacob Schedule When? -> TODAY CON53 IP CONSULT TO PSYCHIATRY [#[id number]] Priority: STAT Class: H ospital Performed Reason for Consult: -> adverse med reaction Did you call or speak to the consulting provider? -> No Consult To -> Dr Aguirre Schedule When? -> TODAY Released on: 12/05/2019 2:41 P M CON9 IP CONSULT TO NEUROLOGY [#[id number]] Priority: STAT Class: Hospital Performe d Reason for Consult: -> encephalopathy adverse drug reaction Did you call or speak to the consulting provider? -> No Consult To -> Dr Jacob Schedule When? -> TODAY Released on: 12/05/2019 2:41 P M [id number] INITIAL PHYSICIAN ORDER: OBSERVATION* [#[id number]] Priority: Routine Class: ADT Pend Trans milvia Standing Order Information Remaining Occurrences:0/1 Interval:ONE TIME Last release d:12/05/2019 Released orders: SunDec 05, 2019 2:00 PM by: LUZ ELENA GATES Patient Class: -> OBS ERVATION Admitting Diagnosis -> Encephalopathy acute Admitting Physician -> CARLA OTERO Attending Physician -> CARLA OTERO [id number] INITIAL PHYSICIAN ORDER: OBSERVATION* [#[id number]] Priority: Routine Class: ADT Pend Transfer Patient Class: -> OBSERVATION Admitting Diagnosis -> Encephalopathy acute Admitting Physician -> CARLA OTERO Attending Physician -> CARLA OTERO Released on: 12/05/2019 2:00 PM [id number] INITIAL PHYSICIAN ORDER: INPATIENT [#[id number]] Joan renner: Routine Class: ADT Pend Transfer [...] o- n- ) Admitting Diagnosis - > Xbu-ahun-zxhlwxa adverse reaction to medication Admitting Physician -> RITIKA CANAS Physician -> RITIKA CANAS Estimated Length of Stay -> 5-7 Midnights Discharge Plan: -> Other (Specify) [id number] INITIAL PHYSICIAN ORDER: INPATIENT [#[id number]] Priority: Routine [facility] Order Information Remaining Occurrences:0/ Interval:ONE TIME Last rele ased:12/05/2019 Released orders: [...] i- o- n- ) Admitting Diagnosis -> Rws-qpgu-sjgfegc adverse reaction to medication Admitting Physician -> RITIKA CANAS Attending Physician -> MARY CANAS Estimated Length of Stay -> 5-7 Midnights Discharge Plan: -> Other (Specify) [id number] [facility] PHYSICIAN ORDER: INPATIENT [#[id number]] Priority: Routine Class: ADT Pend Transfer Status: [...] i- o- n- ) Admitting Diagnosis -> Skd-vqbh-qzayibs adverse reaction to medication Admitting Physician -> RITIKA CANAS Attending Physician -> MARY CANAS Estimated Length of Stay -> 5-7 Midnights Discharge Plan: -> Other (Specify) Released on: 12/05/2019 2:41 PM [id number] INITIAL PHYSICIAN ORDER: INPATIENT [#[id number]] Priority: Routine Class : ADT Pend Transfer [...] o- n- ) Adm itting Diagnosis -> Ruu-ajfs-bihwbcg adverse reaction to medication Admitting Physician -> RITIKA CANAS Attending Physician -> RITIKA CANAS Estimated Length of Stay -> 5-7 Midnights Discharge Plan: -> Other (Specify) Released on: 12/05/2019 2:41 PM COD2 FULL CODE [#[id number]] Priority: STAT Class: Hospital Performed Standing Order Information Remaining Occurrences:0 /1 Interval:CONTINUOUS Last released:12/05/2019 Released orders: SunDec 05, 2019 2:41 PM by: RITIKA CANAS COD2 FULL CODE [#[id number]] Priority: STAT Cl ass: Hospital Performed Released on: 12/05/2019 2:41 PM [id number] EEG 12-26 HR W/VIDEO [# [id number]] Priority: Routine Class: Hospital Performed Standing Order Information Remaining Occurre nces:0/1 Interval:ONE TIME Last released:12/05/2019 Released orders: SunDec 04 20 3:19 PM by: JOSE KHAN Reason for Exam: -> ams [id number] EEG 12-26 HR W/VIDEO [#[id number]] Priority: STAT Class: Hospital Performed Resulting Agency: [facility] Test ID: [id number] Reason for Exam: -> ams Released on: 12/05/2019 3:19 Anna Corona MR#: [id number] * Rm: [id number] 01Ht: 5' 5.75" Wt: 300 lb Code: Full Code Iso:Diagnosis:Encep halopathy acute [G93.40]Allergies: No Known Allergies -------- Current as of: 12/05/191806 NB=New Bag --aspirin (ASPIRIN) tablet 325 mg #[id number] Admin Amount: 1 Tab (1 x 325 mg Tab) Ordered Dose: 325 mg Route: Oral Freq: ONCE Start Date: 12/24/13 No administration times (back 96 hours, ahead 96 hours). ------diphenhydrAMINE (BENADRYL) capsule 50 mg #[id number] Admin Amount: 1 Cap (1 x 50 mg Cap) Ordered Dose: 50 mg Route: Ora l Freq: NOW Start Date: 12/24/13 No administration times (back 96 hours, ahe ad 96 hours). ------diazepam (VALIUM) tablet 5 mg #[id number] Admin Amount: 1 Tab (1 x 5 mg Tab) Ordered Dose: 5 mg Route: Oral Freq: ON CE Start Date: 12/24/13 No administration times (back 96 hours, ahead 96 hours). ------lidocaine (XYLOCAINE) 10 mg/mL (1 %) injection 1-30 mL #[id number] Admin Amount: 1-30 mL Ordered Dose: 1-30 mL Route: IntraDERMal Freq: ONCE Start Date: 12/24/13 No administration times (back 96 hours, ahead 96 hours). ------heparin (PF) 2 units/ml in NS infusion 2,000 Units #[id number] Admin Amount: 1,000 mL = 2,000 Units of 2 Units/mL Ordered Dose: 1,000 mL [place] band: Irrigation Freq: ONCE Start Date: 12/24/13 No administration times (back 96 hours, ahead 96 hours). ------heparinized saline 2 units/mL infusion 1,000 Units #[id number] Admin Amount: 500 mL = 1,000 Units of 2 Units/mL Ordered Dose: 500 mL [place] band: IntraarTERial Freq: ONCE Start Date: 12/24/13 No administration times (back 96 hours, ahead 96 hours). ------0.9% sodium chloride infusion #[id number] Ordered Dose: 75 mL/hr Route: IntraVENous Freq: CONTINUOUS Start Date: 12/24/13 Rate: 75 mL/hr Duration: No administration times (back 96 hours, ahead 96 hours). ------ioversol (OPTIRAY) 320 mg iodine/mL contrast injection 1-100 mL #[id number] Admin Amount: 1-100 mL Ordered Dose: 1-100 mL Route: IntraVENous Freq: RAD O NCE Start Date: 12/24/13 No administration times (back 96 hours, ahead 96 hours).Anna Bray MR#: [id number] * Rm: 441-01Ht: 5' 5.75" Wt: 300 lb Cod e: Full Code Iso:Diagnosis:Encephalopathy acute [G93.40]Allergies: No Known Allergies -------- Current as of: 12/05/191806 NB=New Bag --gadobutrol (GADAVIST) contrast solution 1-10 mL #[id number] Admin Amount: 1-10 mL Ordered Dose: 1-10 mL Route: IntraVENous Freq: RAD O NCE Start Date: 01/13/14 No administration times (back 96 hours, ahead 96 hours). ------sodium chloride (NS) flush 5-10 mL #[id number] Admin Amount: 5-10 mL Ordered Dose: 5-10 mL Route: IntraVENous Freq: RAD ONCE Start Date: 01/13/14 No administration times (back 96 hours, ahead 96 hours). ------sodium chloride (NS) 0.9 % flush #[id number] Ordered Dose: Route: Freq: Start Date: 01/13 No administration times (back 96 hours, ahead 96 hours). ------morphine injection 2 mg #[id number] Admin Amount: 1 mL = 2 mg of 2 mg/mL Ordered Dose: 2 mg Route: IntraVENous Freq: NOW Start Date: 03/13/15 No administration times (back 96 hours, ahe ad 96 hours). ------influenza vaccine (4 yr+)(PF) (FLUCELVAX QUAD) inj ection 0.5*#[id number] Admin Amount: 0.5 mL Ordered Dose: 0.5 mL Route: IntraMUSCular Freq: PRIOR TO DISCHARGE Start Date: 03/30/16 No administration times (back 96 hours, ahead 96 hours). ------oxyCODONE-acetaminophen (PERCOCET) 5-325 mg per tablet 1 Tab #[id number] Admin Amount: 1 Tab Ordered Dose: 1 Tab Route: Oral Freq: NOW Start Date: 09/07/17 No administration times (back 96 hours, ahead 96 hours). ------barium sulfate (READICAT) 2.1 % (w/v), 2.0 % (w /w) oral suspension 9*#[id number] Admin Amount: 900 mL Ordered Dose: 900 mL Route: Oral Delgado q: RAD ONCE Start Date: 10/15/17 No administration times (back 96 hours, ahead 96 hours). ------iopamidol (ISOVUE 300) 61 % contrast injection 100 mL #[id number] Admin Amount: 100 mL Ordered Dose: 100 mL Route: IntraVENous Freq: RAD ONC E Start Date: 10/15/17 No administration times (back 96 hours, ahead 96 hours).nAna Bray MR#: [id number] * Rm: 441-01Ht: 5' 5.75" Wt: 300 lb Code: Full Code Iso:Diagnosis:Encephalopathy acute [G93.40]Allergies: No Known Allergies -------- Current as of: 12/05/19 1807 NB=New Bag --risperiDONE (RisperDAL m-tabs) disintegrating tablet 1 mg #[id number] Admin Amount: 1 Tab (1 x 1 mg Tab) Ordered Dose: 1 mg Route: Oral Freq: ONCE Start Date: 12/24/17 No administration times (back 96 hours, ahead 96 hours). ------ALPRAZolam (XANAX) tablet 2 mg #[id number] Admin Amount: 4 Tab (4 x 0.5 mg Tab) Ordered Dose: 2 mg Route: Ora l Freq: NOW Start Date: 12/24/17 No administration times (back 96 hours, ahe ad 96 hours). ------lamoTRIgine (LaMICtal) tablet 100 mg #[id number] Admin Amount: 1 Tab (1 x 100 mg Tab) Ordered Dose: 100 mg Route: Oral Delgado q: ONCE Start Date: 12/24/17 No administration times (back 96 hours, ahead 96 hours). ------OLANZapine (ZyPREXA zydis) disintegrating tablet 5 mg #[id number] Admin Amount: 1 Tab (1 x 5 mg Tab) Ordered Dose: 5 mg Route: Oral Delgado q: ONCE Start Date: 12/25/17 No administration times (back 96 hours, ahead 96 hours). ------LORazepam (ATIVAN) tablet 2 mg #[id number] Admin Amount: 4 Tab (4 x 0.5 mg Tab) Ordered Dose: 2 mg Route: Ora l Freq: NOW Start Date: 12/25/17 No administration times (back 96 hours, e ad 96 hours). ------LORazepam (ATIVAN) injection 1 mg #[id number] Admin Amount: 0.5 mL = 1 mg of 2 mg/mL Ordered Dose: 1 mg Route: Int Katherin Freq: NOW Start Date: 12/25/17 No administration times (back 96 hours, e ad 96 hours). ------barium sulfate (EZ PAQUE) 96 % (w/w) contrast suspension 17 6 g #[id number] Admin Amount: 176 g Ordered Dose: 176 g Route: Oral Freq: RAD ONCE Start Date: 08/02/18 No administration times (back 96 hours, ahead 96 hours). ------barium sulfate (EZ PAQUE) 96 % (w/w) contrast s uspension 176 g #[id number] Admin Amount: 176 g Ordered Dose: 176 g Route: Oral Delgado q: RAD ONCE Start Date: 08/02/18 No administration times (back 96 hours, ahead 96 hours).Anna Ritter Anam MR#: [id number] * Rm: 441-01Ht: 5' 5.75" Wt: 300 lb Cod e: Full Code Iso:Diagnosis:Encephalopathy acute [G93.40]Allergies: No Known Allergies -------- Current as of: 12/05/19 180 NB=New Bag --aspirin chewable tablet 162 mg #[id number] Admin Amount: 2 Tab (2 x 81 mg Tab) Ordered Dose: 162 mg Route: Oral Freq: NOW Start Date: 08/10/19 No administration times (back 96 hours, ahead 96 hours). ------0.9% sodium chloride infusion 1,000 mL #[id number] Admin Amount: 1,000 mL Ordered Dose: 1,000 mL Route: IntraVENous Freq: ONC E Start Date: 08/16/19 Rate: 1,000 mL/hr Duration: No administration ti mes (back 96 hours, ahead 96 hours). ------methylPREDNISolone (PF) (Solu-MEDROL) injection 125 mg #[id number] Admin Amount: 2 mL = 125 mg of 125 mg/2 mL Ordered Dose: 125 mg Route: Int raVENous Freq: NOW Start Date: 08/16/19 No administration times (back 96 hours, ahe ad 96 hours). ------aspirin chewable tablet 162 mg #[id number] Admin Amount: 2 Tab (2 x 81 mg Tab) Ordered Dose: 162 mg Route: Oral Delgado q: NOW Start Date: 08/16/19 No administration times (back 96 hours, ahead 96 hours). ------haloperidoL (HALDOL) tablet 5 mg #[id number] Admin Amount: 1 Tab (1 x 5 mg Tab) Ordered Dose: 5 mg Route: Oral Delgado q: ONCE Start Date: 10/30/19 No administration times (back 96 hours, ahead 96 hours). ------cefTRIAXone (ROCEPHIN) 1 g in 0.9% sodium chloride (MBP/ADV) 50 m L M*#[id number] Admin Amount: 1 g Ordered Dose: 1 g Route: IntraVENous Freq: NOW Start Date: 12/05/19 Rate: 100 mL/hr Duration: 30 Minutes Administration linda es (back 96 hours, ahead 96 hours): 12/05/19: 1428NB -----0.9% sodium chloride infusion #[id number] Ordered Dose: 125 mL/hr Route: IntraVENous Freq: CONTINUOUS Start Date: 12/05/19 Rate: 125 mL/hr Duration: Administration times (back 96 hours, ahead 96 hours): 12/05/19: 1408NBAnna Bray MR#: [id number] * Rm : 441-01Ht: 5' 5" Wt: 300 lb Code: Full Code Iso:Diagnosis:Encephalopathy acute [G93. 40]Allergies: No Known Allergies -------- Current as of: 12/05/197 NB=New Bag --enoxaparin (LOVENOX) injection 40 mg #[id number] Admin Amount: 0.4 mL = 40 mg of 40 mg/0.4 mL Ordered Dose: 40 mg [place] band: SubCUTAneous Freq: EVERY 24 HOURS Start Date: 12/05/19 Administration times (back 96 h ours, ahead 96 hours): 12/05/19: 209912/06/19: 209912/07/19: 209912/08/19: 2099 ---furosemide (LASIX) injection 20 mg #[id number] Admin Amount: 2 mL = 20 mg of 10 mg/mL Ordered Dose: 20 mg [place] band: IntraVENous Freq: ONCE Start Date: 12/05/19 Administration times (back 96 hours, ead 96 hours): 12/05/19: 1449 ED Current OP [...] ormationFollow-up With:Ritika Canas MDDetails:Comments:Contact Info:[place]nn [address] dical [phone] Name Value Range Interpretation Code Description Data Melani rce(s) Supporting Document(s ) ID Date Data Source [id number] 12/05/2019 04:36:09 PM EDT [facility] The history is provided by the patient a nd the EMS personnel.11:17 AM: Anna Bray is a 49 y.o. male with [...] of morbidity or mortality cardiac cath at [facility] approx 6-8 months ag o Other unknown [...] week Gets together: Once a week Attends anglican service: More than 4 times per year [...] 102 97 95Resp: 20Temp: 98.8 F (37.1 C) 97.9 F (36.6 C)SpO2: 92% 93% 92%Weight:Height:1144 AM Pulse Oximetry reading is 92 % on room air, which indicates normaloxygenation per Julio Manzo MD.Ph ysical ExamVitals signs and nursing note reviewed.Constitutional: General: He i s not in acute distress. Appearance: He is well-developed. He is obese.HENT: Head : Normocephalic and atraumatic.Eyes: Pupils: Pupils are equal, round, and ivis ctive to light.Neck: Musculoskeletal: Neck supple. Vascular: [...] yesIndependent visualization of images, tracings, or specimens: yesProceduresIElan Dennis, MD, reviewed the patient's past history, allergies and homemedications a s documented in the nursing chart.Labs:Recent Results (from the past 12 hour(s))EKG, 1 2 LEAD, INITIAL Collection Time: 12/05/19 11:41 AMResult Value Ref Range Ventricul ar Rate 102 BPM Atrial Rate 102 BPM P-R Interval 174 ms QRS Duration 104 ms Q-T Interval 395 ms QTC Calculation (Bezet) 515 ms Calculated P Rayle 40 degrees Calculat ed R Rayle 41 degrees Calculated T Rayle 147 degrees Diagnosis Sinus tachycardiaProb able left [...] Time: 12/05/19 12:38 PMResult Value Ref Range [place] level 1.53 (HH) 0.6 - 1.2 MMOL/LLACTIC ACID Collection Time: 12/04 12:40 PMResult Value Ref Range Lactic acid 1.1 0.4 - 2.0 MMOL/LEKG:Sinus tachy cardia at 100 BPM, normal axis, nothing acute.Interpreted by Julio Manzo MD11:2 0 AM monitoring tech reading shows sinus tachycardia at 100 BPM. [...] cardiac monitoring, CXR, and head CT. 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 Will consult [...] 100 mg tablet 200 mg. 11/12/19 Provider, HistoricalVraylar 3 mg capsule Take 6 mg by mouth nightly. Prescription is 6 mg capsuleIndications: bipolar depression 09/03/19 Provider, Historicallithium carbonate 150 mg capsu le Take 300 mg by mouth two (2) times daily (withmeals). Other, Phys, MDclonazePA M (KLONOPIN) 2 mg tablet Take 1 mg by mouth two (2) times daily asneeded. Other, Phys, MDMaoJulio MD I, Kishore Marta, am serving as a scribe to document [...] Supporting Document(s ) ID Date Data Source [id number] 12/05/2019 04:05:06 PM EDT [facility] [address] [place] [address] [email or web address] CONSULT NOTEPatient: Anna Mendieta Asa Se x: male DOA: 12/05/2019Date of : 1970 Age: 49 y.o. LOS: LOS: 0 days Chief ComplaintPatient presents with Fall FatigueHPIBrian Anam Bray is a 49 y.o. m vera with hx of anxiety and depression, bipolardisorder, and seizure who present s to the ED via EMS s/p fall and generalizedweakness. Patient reports his legs gave away and fell to the ground last nightwhile getting up from bed. Patient denies LOC or head trauma, nausea, vomiting,focal numbness or sensory fuentes es. Lab significant of [place] 1.53 and elevatedliver enzymes. Neurology consult ed for encephalopathy/drug adverse reaction.Past Medical History:Diagnosis Date Other unknown and unspecified cause of morbidity or mortality cardiac cath at [facility] approx 6-8 months ago Other unknown [...] QTC Calculation (Bezet) 515 ms Calculated P Rayle 40 degrees Calculated R Rayle 41 degrees Calculated T Rayle 147 degrees Diagnosis Sinus tachycardiaProbable left atrial [...] 11.1 sec INR 1.0 0.8 - 1.2LITHIUM Collec tion Time: 12/05/19 12:38 PMResult Value Ref Range [place] level 1.53 (HH) 0.6 - 1.2 MMOL/LLACTIC [...] were created on an independent workstation. Utilizing [facility] factureralgorithms the examination was performed to optimize [...] QTC Calculation (Bezet) 515 ms Calculated P Rayle 40 degrees Calculat ed R Rayle 41 degrees Calculated T Rayle 147 degrees Diagnosis Sinus tachycardiaProb able left [...] glover M79.2 Seizure disorder (HCC) G40.909 Spells [id number] Severe obesity (HCC) E66 .01 Depression F32.9 Anxiety F41.9 Bipolar disorder (HCC) F31.9 Depressive disorde r F32.9 Status post gastric bypass for obesity Z98.84 Morbid obesity (HCC) E66 .01 Mixed anxiety and depressive disorder F41.8 Vitamin D deficiency E55.9 Bipol ar disorder with severe depression (HCC) F31.4 Encephalopathy acute G93.40 Adve rse drug reaction, initial encounter T50.905A Cmk-sopk-jluszjs adverse reaction to me dication T88.7XXA49 year old male with pmh as stated above and now with AMS and genera lizedweakness - most likely secondary to lithium toxicity - ? Seizure.Plan: Mri Brain Ammonia Monitor lithium level daily EEG - 24 hrs Seizure precautionsPaulson Gerald Flores 2019 3:19 [id number] Name Value Range Interpretation Code Description Data Melani rce(s) Supporting Document(s ) ID Date Data Source [id number] 12/05/2019 03:37:45 PM EDT [facility] sbar-q given to Ev berger to floor Name Value Range Interpretation Code Description Data Melani rce(s) Supporting Document(s ) ID Date Data Source [id number] 12/05/2019 03:29:57 PM EDT [facility] sbar-q given to Sheri UGALDE on floor Name Value Range Interpretation Code Description Data Melani rce(s) Supporting Document(s ) ID Date Data Source [id number] 12/05/2019 03:28:02 PM EDT [facility] History & PhysicalBrian Anam Bray is a [...] h igh dose amytriptylene 200 mg nightly, [place], andVraylar 6 mg. :[place] level on prior admission therapeutic. Patient's wifecontactedthis [...] of morbidity or mortality cardiac cath at [facility] approx 6-8 months ag o Other unknown [...] week Gets together: Once a week Attends anglican service: More than 4 times per year [...] 1 Tab by mouth daily. 12/04/19 Ritika Canas, MDamitriptyline (ELAVIL) 100 mg tablet 200 mg. [...] Calculati on (Bezet) 515 ms Calculated P Rayle 40 degrees Calculated R Rayle 41 degrees Elena culated T Rayle 147 degrees Diagnosis Sinus tachycardiaProbable left atrial [...] Time: 12/05/19 12:38 PMResult Value Ref Range [place] level 1.53 (HH) 0.6 - 1.2 MMOL/LLACTIC ACID Collection Time: 12/04 12:40 PMResult Value Ref Range Lactic acid 1.1 0.4 - 2.0 MMOL/All lab results for the last 24 hours reviewed. Serun [place] level toxicAssessment/PlanPrinci pal Problem: Adverse drug reaction, initial encounter (12/05/2019) LithiumActive Prob lems: Encephalopathy acute (12/05/2019) Qoz-wahf-hruxtbe adverse reaction to med ication (12/05/2019)Neuro, and psych evaluation, hydrationGeaustin Canas MD Name Value Range Interpretation Code Description Data Melani rce(s) Supporting Document(s ) ID Date Data Source [id number] 12/06/2019 12:36:10 PM EDT [facility] Name Value Range Interpretation Description Data Sup porting Code Source(s) Document(s ) Service comment [facility] Bacteria [facility] identified [facility] by Culture ID Date Data Source [id number] 12/05/2019 04:18:26 PM EDT [facility] Name Value Range Interpretation Description Data Sup porting Code Source(s) Document(s ) Color of Urine YEL Abnormal (applies [facility] - to non-numeric Good results) [facility] Appearance of CLEAR Abnormal (applies [facility] - Urine to non-numeric Good results) [facility] Specific gravity 1.033 1.003-1. Above high normal [facility] - of Urine by 030 Good Refractometry [facility] pH of Urine by 5.5 4.6-8.0 [facility] - Test strip [facility] Protein 30 mg/dL NEG Abnormal (applies [facility] - [Mass/volume] in to non-numeric Good Urine by Test results) [facility] Glucose NEG [facility] - [Mass/volume] in Good Urine by [facility] Automated test [facility] strip Ketones 15 mg/dL NEG Abnormal (applies [facility] - [Presence] in to non-numeric Good Urine by results) [facility] Automated test [facility] strip Bilirubin.total NEG Abnormal (applies [facility] - [Presence] in to non-numeric Good Urine results) [facility] Hemoglobin NEG [facility] - [Presence] in Good Urine by Test [facility] Urobilinogen 1.0 0.2-1.0 [facility] - [Presence] in EU/dL Good Urine by [facility] Automated test [facility] strip Nitrite NEG [facility] - [Presence] in Good Urine by [facility] Automated test [facility] strip Leukocyte NEG [facility] - esterase Good [Presence] in [facility] Urine by [facility] Automated test strip Leukocytes 0-5 [facility] - [Presence] in Good Urine sediment [facility] by [facility] microscopy Erythrocytes 0-2 [facility] - [#/area] in Good Urine sediment [facility] by [facility] high power field Epithelial cells 0-10 [facility] - [#/area] in Good Urine sediment [facility] by [facility] high power field Bacteria NONE Abnormal (applies [facility] - [Presence] in to non-numeric Good Urine sediment results) [facility] by [facility] microscopy ID Date Data Source [id number] 12/05/2019 03:26:35 PM EDT [facility] Name Value Range Interpretation Description Data Sup porting Code Source(s) Document(s ) Bilirubin NEG [facility] - Good [Presence] in [facility] Urine by Hospital Confirmatory method ID Date Data Source [id number] 12/05/2019 02:22:27 PM EDT [facility] I spoke to Dr. Canas regarding Observation Status. Dr. Canas said patient will bemade In Patient Status today. Name Value Range Interpretation Code Description Data Melani rce(s) Supporting Document(s ) ID Date Data Source [id number] 12/05/2019 02:03:27 PM EDT [facility] SW/Psych Screener attempted to meet with Pt for MH evaluation. Pt was foundlying on stretcher with his eyes open, staring at the wall. Pen Tester knows this Ptfrom previous admission to the medical floor. When ask ed if Pt rememberedwriter, Pt appeared confused, but said he did. Pt stated he fell today, doesn'tremember how he was brought to the hospital. Pt appeared to be searching for hiswords and was having difficulty speaking. Pt unclear of where he is, stating"[place]" when asked where he was and "[place]" when asked what month it was. Whenasked if Pt was exhibiting any feelings of S/I, H/I or A/V Hallucinatio ns, Ptresponded with, "No," and confirmed he has been compliant with his psychiatric edications. Pen Tester conferred with ER Attending, Dr. Manzo, who states that Ptwi ll most likely be medically admitted at this time.Krystina Centeno, [facility], [facility] Name Value Range Interpretation Code Description Data Melani rce(s) Supporting Document(s ) ID Date Data Source [id number] 12/05/2019 12:53:37 PM EDT [facility] CT HEAD W/O CONTRASTPRIOR: Multiple: Mos t [...] Supporting Document(s ) ID Date Data Source [id number] 12/05/2019 01:31:37 PM EDT [facility] Name Value Range Interpretation Description Data Sup porting Code Source(s) Document(s ) Lactate 1.1 0.4-2.0 [facility] [Moles/volu MMOL/L [facility]] in Hospital Serum or Plasma ID Date Data Source [id number] 12/10/2019 05:19:22 AM EDT [facility] Name Value Range Interpretation Description Data Sup porting Code Source(s) Document(s ) Service comment [facility] Bacteria [facility] identified in [facility] Unspecified Hospital specimen by Culture ID Date Data Source [id number] 12/05/2019 02:14:34 PM EDT [facility] Name Value Range Interpretation Description Data Sup porting Code Source(s) Document(s ) [place] 1.53 0.6-1.2 Above upper panic BSS - Good [Moles/volu MMOL/L limits [facility]] in Hospital Serum or Plasma CALLED TO AND READ BACK BYSUSI GAMBLE 1414 12/05/19 [facility] ID Date Data Source [id number] 12/05/2019 01:31:37 PM EDT [facility] Value Range Interpretation Description Data Sup porting Code Source(s) Document(s ) Troponin 0.00-0.05 BSS - Good I.cardiac [facility] [Mass/volume Hospital ] in Serum or Plasma [...] to 1.50 ng/mL ID Date Data Source [id number] 12/05/2019 01:31:37 PM EDT [facility] Value Range Interpretation Description Data Sup porting Code Source(s) Document(s ) Sodium 134 136-145 Below low normal [facility] [Moles/volume] mmol/L [facility] in Serum or Hospital Plasma Potassium 3.5 3.5-5.1 [facility] - Good [Moles/volume] mmol/L [facility] in Serum or Hospital Plasma Chloride 104 98-107 [facility] - Good [Moles/volume] mmol/L [facility] in Serum or Hospital Plasma Carbon 26 21-32 [facility] - Good dioxide, total mmol/L [facility] [Moles/volume] Hospital in Serum or Plasma Anion gap in 7 mmol/L 10-20 Below low normal [facility] - Go od Serum or [facility] Plasma Hospital Glucose 127 74-106 Above high normal [facility] - Good [Mass/volume] mg/dL [facility] in Serum or Hospital Plasma Urea nitrogen 21 mg/dL 7-18 Above high normal [facility] - Good [Mass/volume] [facility] in Serum or Hospital Plasma Creatinine 0.94 0.70-1.3 [facility] - Good [Mass/volume] mg/dL 0 [facility] in Serum or Hospital Plasma Glomerular >60 [facility] - Good filtration [facility] rate/1.73 sq M Hospital predicted among blacks [Volume Rate/Area] in Serum or Plasma by Creatinine-bas ed formula (MDRD) Glomerular >60 [facility] - Good filtration [facility] rate/1.73 sq M Hospital predicted among non-blacks [Volume Rate/Area] in Serum or Plasma by Creatinine-bas ed formula (MDRD) (NOTE)Estimated GFR is calculated using the Modification of Diet in RenalDisease (MDRD) Study equation, reported for both Americans(GFRAA) and non- Americans (GFRNA), and normalized to 1.7 8f5hskd surface area. The physician must decide which [...] normal [facility] - Good Serum or Plasma [facility] Hosp ital Bilirubin.total 0.9 mg/dL 0.2-1.0 [facility] - Good [Mass/volume] in Serum or [facility] Plasma Alanine aminotransferase 34 U/L 13-61 [facility] - Good [Enzymatic activity/volume] [facility] in Serum or Plasma Aspartate aminotransferase 47 U/L 15-37 Above high BS [facility] - Good [Enzymatic activity/volume] normal [facility] in Serum or Plasma by With P-5'-P Alkaline phosphatase 171 U/L 45-117 Above high [facility] - Good [Enzymatic activity/volume] normal [facility] in Serum or Plasma Protein [Mass/volume] in 7.5 g/dL 6.4-8.2 [facility] - Good Serum or Plasma [facility] ital Albumin [Mass/volume] in 3.8 g/dL 3.5-4.7 [facility] - Good Serum or Plasma by [facility] Bromocresol purple (BCP) dye binding method Globulin [Mass/volume] in 3.7 g/dL 1.7-4.7 [facility] - Good Serum by calculation [facility] Albumin/Globulin [Mass 1.0 0.7-2.8 [facility] - Good Ratio] in Serum or Plasma [facility] ID Date Data Source [id number] 12/05/2019 01:31:37 PM EDT BSS [facility] Name Value Range Interpretation Description Data Sup porting Code Source(s) Document(s ) Magnesium 2.9 mg/dL 1.6-2.6 Above high normal [facility] - Good [Mass/volume] [facility] in Serum or Hospital Plasma ID Date Data Source [id number] 12/05/2019 01:20:04 PM EDT [facility] Value Range Interpretation Description Data Sup porting Code Source(s) Document(s ) Prothrombin 10.6 sec 9.4-11.1 [facility] - Good time (PT) [facility] INR in 1.0 0.8-1.2 [facility] - Good Platelet poor [facility] plasma by Hospital Coagulation assay ID Date Data Source [id number] 12/05/2019 01:07:21 PM EDT [facility] Name Value Range Interpretation Description Data Sup porting Code Source(s) Document(s ) Leukocytes 12.4 4.8-10.6 Above high normal [facility] - [#/volume] in K/uL Good Blood by [facility] Automated count [facility] Erythrocytes 5.03 4.70-6.0 [facility] - [#/volume] in M/uL 0 Good Blood by [facility] Automated count [facility] Hemoglobin 15.4 14.0-18. [facility] - [Mass/volume] in g/dL 0 [facility] Blood [facility] Hematocrit 45.8 % 42.0-52. [facility] - [Volume 0 Good Fraction] of [facility] Blood by Hospital Automated count Erythrocyte mean 91.1 FL 81.0-94. [facility] - corpuscular 0 Good volume [Entitic [facility] volume] by Hospital Automated count Erythrocyte mean 30.6 PG 27.0-35. [facility] - corpuscular 0 Good hemoglobin [facility] [Entitic mass] Hospital by Automated count Erythrocyte mean 33.6 30.7-37. [facility] - corpuscular g/dL 3 Good hemoglobin [facility] [Mass/volume] by Automated count Erythrocyte 12.9 % 11.5-14. [facility] - distribution 0 Good width [Ratio] by [facility] Automated count [facility] Platelets 164 K/uL 130-400 [facility] - [#/volume] in Good Blood by [facility] Automated count [facility] Platelet mean 9.5 FL 9.2-11.8 [facility] - volume [Entitic Good volume] in Blood [facility] Automated Hospital count Nucleated 0.0 PER 0 [facility] - erythrocytes/100 100 WBC Good leukocytes [facility] [Ratio] in Blood [facility] Nucleated 0.00 0.0-0.01 [facility] - erythrocytes K/uL Good [#/volume] in [facility] Segmented 80 % 48.0-72. Above high normal [facility] - neutrophils/100 0 Good leukocytes in [facility] Lymphocytes/100 8 % 18.0-40. Below low normal [facility] - leukocytes in 0 [facility] Blood [facility] Monocytes/100 10 % 2.0-12.0 [facility] - leukocytes in [facility] Blood [facility] Eosinophils/100 1 % 0.0-7.0 [facility] - leukocytes in [facility] Blood [facility] Basophils/100 0 % 0.0-3.0 [facility] - leukocytes in [facility] Blood [facility] Immature 0 % 0-0.5 [facility] - granulocytes/100 Good leukocytes in [facility] Blood by Hospital Automated count Segmented 10.0 2.3-7.6 Above high normal [facility] - neutrophils K/UL Good [#/volume] in [facility] Lymphocytes 1.0 K/UL 0.9-4.2 [facility] - [#/volume] in [facility] Monocytes 1.2 K/UL 0.1-1.7 [facility] - [#/volume] in [facility] Eosinophils 0.1 K/UL 0.0-1.0 [facility] - [#/volume] in [facility] Basophils 0.0 K/UL 0.0-0.4 [facility] - [#/volume] in [facility] Immature 0.1 K/UL 0.0-0.17 [facility] - granulocytes Good [#/volume] in [facility] by Hospital Automated count Differential [facility] - cell count Good method [facility] ID Date Data Source [id number] 12/10/2019 05:19:23 AM EDT [facility] Name Value Range Interpretation Description Data Sup porting Code Source(s) Document(s ) Service comment [facility] Bacteria [facility] identified in [facility] Unspecified Hospital specimen by Culture ID Date Data Source [id number] 12/05/2019 12:24:35 PM EDT [facility] PELVIS one view.History: TraumaThe study is suboptimal due to the patient's body habitus.There is no evidence of fracture , dislocation, subluxation, bone erosion orarthritis.IMPRESSION: Grossly normal s tudy. Signing date/time: 12/05/2019 12:24 PMSigned by: CURTIS VARMA Name Value Range Interpretation Code Description Data Melani rce(s) Supporting Document(s ) ID Date Data Source [id number] 12/05/2019 12:23:11 PM EDT [facility] CHEST 1 view (s)HISTORY: Chest pain.COMP [place]: [...] infiltrate. Signing date/time: 12/05/2019 12:23 PMSigned by: CURTIS VARMA Name Value Range Interpretation Code Description Data Melani rce(s) Supporting Document(s ) ID Date Data Source [id number] 12/05/2019 11:34:39 AM EDT [facility] BIBA for fall in the middle of the night while going to bathroomC/p left hip pain Name Value Range Interpretation Code Description Data Melani rce(s) Supporting Document(s ) ID Date Data Source [id number] 12/05/2019 11:21:27 AM EDT [facility] Please enter the current weight for this patient in [facility]. Thank you. Name Value Range Interpretation Code Description Data Melani rce(s) Supporting Document(s ) ID Date Data Source [id number] 11/23/2019 02:02:47 PM EDT [facility] Discharge SummaryPatient: Anna Mendieta Xiao pao Sex: male DOA: 10/29/2019Date of : 1970 [...] E66.01ICD-9-CM: 278.01 07/19/2018 - Present Spells ICD-10-CM: [id number]-6-KD: IMO00 01 04/08/2016 - Present Seizure disorder [...] tr eated with parenteral hydration with benefit j5zrmeylcezhzvywxpd responses. Of note i s fact that patient was scheduled to begin ECTtreatment for depression when Covid 1 9 pandemic curtained this plan.Consults: PsychiatrySignificant Diagnostic Studies : labs: microbiology: , radiology: and cardiacgraphics:Discharge Medications: @DISCHARGEMEDLIST@Activity: Activity as toleratedDiet: Resume previous dietWound Care: None neededFollow-up: This examiner to follow in officeRitika Canas MD Name Value Range Interpretation Code Description Data [facility] rce(s) Supporting Document(s ) ID Date Data Source [id number] 11/03/2019 09:41:35 PM EDT [facility] Verbal shift change report given to , RN (oncoming nurse) by Scott Beverly RN (offgoing nurse). Report included the fo llowing information SBAR, Kardex,Intake/Output, MAR and Recent Res ults. Name Value Range Interpretation Code Description Data [facility] Supporting Document(s ) ID Date Data Source [id number] 11/03/2019 03:34:07 PM EDT [facility] Per psych note, CM to confirm patient ap pt with psychiatristCall to Dr Mateo Méndez office # [phone], office [facility] ent aware of # to call to make his own appt, psychiatry info placed on [facility] ent states his will be coming this evening to drive him homeCare Management InterventionsPCP Verified by CM: YesPalliative Care Criteria Met (RRAT>21 & CHF Dx)?: NoMode of Transport at Discharge: Other (see comment)( yanni maciel between approx5-6)Transition of Care Consult (CM Consult): Discharge Planning Physical Therapy Consult: NoOccupational Therapy Consult: NoSpeech Therapy Consul t: NoCurrent Support Network: Lives with Spouse, Own Home( [place] [phone])Confirm Follow Up Transport: FamilyThe Patient and/or Patient [...] Supporting Document(s ) ID Date Data Source [id number] 11/03/2019 02:45:48 PM EDT [facility] PHYSICAL THERAPY TREATMENTPatient: Anna Bray (49 y.o. male)Date: 11/03/2019Diagnosis: Bipolar disorder [...] Supporting Document(s ) ID Date Data Source [id number] 11/03/2019 01:09:08 PM EDT [facility] General Daily Progress NoteAdmit Date: Hospital [...] past 8 hrs: BP Temp Pulse Resp EgI49211/03/19 0752 115 /76 97.6 F (36.4 C) 68 19 97 %11/02 07 - 11/02 1900In: -Out: 175 [Urine:175]10/31 1900 - 11/02 0700In: 3138.3 [I.V.:3138.3]Out: 2935 [Urine:2935] [...] Value Range Interpretation Code Description Data [facility](s) Supporting Document(s ) ID Date Data Source [id number] 11/03/2019 10:52:30 AM EDT [facility] S/O patient has seen for follow up via V ideo . He is doing much better. Hedenies any auditory or visual hallucination any mor eHe has no suicidal or homicidal thoughtsHe reports that he sees Dr. marie every ot her weeksPt wants to follow up with Dr. Marie after dischargePlan continue on a ll current psychotropic medications Requesting pillowcase turner to confirm his a ppointment with Dr. mariebefore he discharged Please re consult if n eeded Name Value Range Interpretation Code Description Data [facility] Supporting Document[facility]s ) ID Date Data Source [id number] 11/03/2019 07:12:34 AM EDT [facility] Bedside and Verbal shift change report g iven to Meño Rose, SUSI (oncomingnurse) by June Ochoa RN (offgoing nurse). Repor t included the followinginformation SBAR, Kardex, Intake/Output, MAR, Recent Resul ts and Med Rec Status. Name Value Range Interpretation Code Description Data [facility] Supporting Document[facility]s ) ID Date Data Source [id number] 11/02/2019 11:18:25 PM EDT [facility] Problem: Falls - Risk ofGoal: *Absence o [...] Supporting Document(s ) ID Date Data Source [id number] 11/02/2019 07:34:02 PM EDT [facility] Bedside shift change report given to GILLIAN KEATING (oncoming nurse) by Meño Rose(offgoing nurse). Report included the following information SBAR, Kardex andIntake/Output. Name Value Range Interpretation Code Description Data [facility]) Supporting Document(s ) ID Date Data Source [id number] 11/02/2019 05:14:50 PM EDT [facility] Telehealth Progress NotePursuant to the emergency [...] was conducted via [] Telephone [x] VideoconferenceDate: 11/02/2019Account Franny mber: [id number]: Anna Robin & Joe PROGRESS NOTE:Coordinated treatment team rounds conducted with psychiatrist, patient, nursesand/or social services manager present ; dis cussions held with pillowcase turner and/or familymembers; Chart reviewed in full in cluding franchise business consultant notes, ancillary staffnotes, [facility]als and [facility] reviewed in full.SUBJECTIVE: Pt seen for first time on Video with my TERRY Brooke And RN , hereports less hallucinations , as they are still there in the morning But overall better since got back on vraylar told me was scheduled for ECT at [facility] but due to elective , it [...] past 8 hrs: Temp Pulse Resp BP BpA453/04/13 1546 98.3 F (36.8 C) 84 18 [...] (LOVENOX) injection 40 mg 40 mg SubCUTAneous H14PMtzfdrdem Medications:C urrent Facility-Administered MedicationsMedication Dose Route Frequen [...] ENOX) injection 40 mg 40 mg SubCUTAneous [id number]/PLAN:Continue current kalie atment as pt is stabalizingPatient [...] Supporting Document(s ) ID Date Data Source [id number] 11/02/2019 03:02:33 PM EDT [facility] General Daily Progress NoteAdmit Date: Hospital [...] (LOVENOX) injection 40 mg 40 mg SubCUTAneous C84VGcescmuec:Patient Vitals for the past 8 hrs: BP Temp Pulse Resp S pO205 0748 120/85 98.2 F (36.8 C) 75 18 94 %11/01 700 - 11/01 1900In: -Out: 570 [Urine:570]10/30 1900 - 11/01 0700In: [...] contrast. Sagittal and coronal reconstruction was performed.Uti Bookmycabing set up operator tool algorithm the examination was performed to optimizeimaging [...] Name Value Range Interpretation Code Description Data [facility] Supporting Document[facility]s ) ID Date Data Source [id number] 11/02/2019 07:48:14 AM EDT [facility] Verbal shift change report given to Jody wells RN (oncoming nurse) by Juliane UGALDE (offgoing nurse). Report included the following information SBAR,Kardex, Intake/Output, MAR and Recent Results Name Value Range Interpretation Code Description Data [facility] Supporting Document(s ) ID Date Data Source [id number] 11/02/2019 05:41:52 AM EDT [facility] Patient AOX3 with periodic confusion. In bed watching TV. All med's given asordered by , tolerated well. Fall precaution m easures reinforced. Call bellwithin reach, bed in low position. Has urinal and comm ode at bedside. Voices nocomplaint at this time. Will continue to monitor pt. Name Value Range Interpretation Code Description Data [facility] Supporting Document(s ) ID Date Data Source [id number] 11/01/2019 08:46:30 PM EDT [facility] Problem: Falls - Risk ofGoal: *Absence o [...] Document Harsh Scale and appropriate interventions in [facility].Outcome: P rogressing Towards GoalNote: Pressure [...] Value Range Interpretation Code Description Data [facility](s) Supporting Document(s ) ID Date Data Source [id number] 11/01/2019 08:00:09 PM EDT [facility] Verbal shift change report given to Ly vitale RN (oncoming nurse) by SUSI Palacio (offgoing nurse). Report included the following information SBAR,Intake/Output, MAR and Recent Results. Name Value Range Interpretation Code Description Data [facility](s) Supporting Document(s ) ID Date Data Source [id number] 11/01/2019 03:49:42 PM EDT [facility] Adult Progress NoteDate: 11/01/2019Account Number: [id number]: Anna Mendieta TrimbleDiagnosis: History of mood and se [...] On e Bipolar disorder with severe depression ([facility]) 10/29/2019 Mixed anxiety and depr essive disorder 09/04/2019 Vitamin D deficiency 09/04/2019 Anxiety 0 Bipolar disorder ([facility]) 07/21/2019 Depressive disorder 07/21/2019 Status p ost gastric bypass for obesity 07/21/2019 Morbid obesity ([facility]) 07/21/2019 Severe obesity ([facility]) 07/19/2018 Spells 04/08/2016 Seizure disorder ([facility]) 04/30/2014 Insom kacey 11/04/2013 H/O gastric bypass [...] found.Assessment/Plan:Active Problems: Bipolar disorder with severe depression ([facility]) (10/29/2019)Psychotherapy (type and freque ncy) supportiveConsultation psychiatryMedications:Current [...] (LOVENOX) injection 40 mg 40 mg SubCUTAneous I22SPas following information was reviewed and discussed: Patient [...] Supporting Document(s ) ID Date Data Source [id number] 11/01/2019 02:42:08 PM EDT [facility] General Daily Progress NoteAdmit Date: Hospital [...] past 8 hrs: BP Temp Pulse Resp AwL59911/01/19 0715 101/67 98 F (36.7 C) 70 [...] Sagittal and coronal reconstr uction was performed.Utilizing set up operator tool algorithm the examination was performed to optimizeimaging [...] Prominent interstitial markings arefelt to reflect vascular director microbiology 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 Repeat PA andlateral views the chest are advised i f there is clinical concern for pneumoniaor congestive failure.Assessment:Active Pro blems: Bipolar disorder with severe depression (HCC) (10/29/2019)Plan:Improvin g status Name Value Range Interpretation Code Description Data [facility] Supporting Document(s ) ID Date Data Source [id number] 11/01/2019 07:08:12 AM EDT [facility] Verbal shift change report given to Chandrakant Albert RN (oncoming nurse) byMelanie Hoffmann RN (offgoing nurse). Report incl uded the following informationSBAR, Kardex, Intake/Output, MAR and Recent Results. Name Value Range Interpretation Code Description Data [facility](s) Supporting Document(s ) ID Date Data Source [id number] 10/31/2019 07:59:03 PM EDT [facility] Verbal shift change report given to Shreya adrian RN (oncoming nurse) by SUSI Palacio (offgoing nurse). Report included the following information SBAR,Kardex, Intake/Output, MAR and Recent Results. Name Value Range Interpretation Code Description Data [facility](s) Supporting Document(s ) ID Date Data Source [id number] 10/31/2019 05:09:32 PM EDT [facility] Telehealth ConsultationPursuant to the e mergency declaration [...] was conducted via [] Telephone [x] VideoconferenceSubjective:Patient: Anna BrayN #: [id number]: [id number]: 49 y.o. Sex: maleAdm it Date: 10/29/2019Attending: Ritika Canas, MDDate of Evaluation: 10/31/2019Reason fo r Referral: Anna Bray was admitted for confusion andhallucinations.History of [...] week Gets together: Once a week Attends anglican service: More than 4 times per year [...] morbidity or mortal ity cardiac cath at [facility] approx 6-8 months ago Other [...] past 8 hrs: BP Temp Pulse Resp [id number]/31/19 0754 120/60 97.2 F (36.2 C) 70 20 95 %MENTA L STATUS EXAM:FINDINGS WITHIN NORMAL LIMITS (WNL) UNLESS OTHERWISE STATED BELOW:Sens orium SSAO4Nkpksqodl Well relatedAppearance: OverweightMotor Behavior: Not examined Speech: [...] receiving Vraylar. Willattempt to restart it.Referral To: javier coyle re: non formulary drug.Ronal Aguirre MD 10/31/2019 3:38 PM Name Value Range Interpretation Code Description Data [facility](s) Supporting Document(s ) ID Date Data Source [id number] 10/31/2019 04:37:18 PM EDT [facility] [place] [address] [place], [place] [address]KHILKIK: ANNA BRAYMRN: [id number]: [id number]#: [id number] DATE: 10/29/2019 CONSULTATIONHISTORY OF PRESENT ILLNESS: The [...] and Klonopin.PAST MEDICAL HISTORY: Cardiac cath at [facility] six to eight months ago, concussions,periodic disorientation, [...] back to his psychiatrist in [place] [facility].Cognitively,he seems to be fair. His memory to [...] alkaline phosphatase 139, lithium level 0.20. RONAL AGUIRRE, MDDD: 10/30/2019 14:44:41/BR /[id number] / [id number] Name Value Range Interpretation Code Description Data [facility](s) Supporting Document(s ) ID Date Data Source [id number] 10/31/2019 01:47:36 PM EDT [facility] General Daily Progress NoteAdmit Date: Hospital [...] Supporting Document(s ) ID Date Data Source [id number] 10/31/2019 12:59:26 PM EDT [facility] physical Therapy TREATMENTPatient: Anna Bray (49 y.o. male)Date: 10/31/2019Diagnosis: Bipolar disorder [...] stated "I feel better today."OBJECTIVE DATA SUM HEATHER:Critical Behavior:Neurologic State: DrowsyOrientation Level: Oriented X4Cogn ition: [...] Name Value Range Interpretation Code Description Data [facility] Supporting Document(s ) ID Date Data Source [id number] 10/31/2019 07:10:46 AM EDT [facility] Bedside and Verbal shift change report g yesseniaen to Samy UGALDE (oncoming nurse)by Cristofer Valenzuela RN (offgoing nurse). Repo rt included the following information SBAR, Kardex, MARand Recent Results. Name Value Range Interpretation Code Description Data [facility] Supporting Document(s ) ID Date Data Source [id number] 10/30/2019 11:27:14 PM EDT [facility] Problem: Falls - Risk ofGoal: *Absence o [...] Supporting Document(s ) ID Date Data Source [id number] 10/30/2019 08:09:55 PM EDT [facility] Susi Garcia called as pt has been hallucin ating [...] be ordered as non formulary also At [facility] Name Value Range Interpretation Code Description Data [facility](s) Supporting Document(s ) ID Date Data Source [id number] 10/30/2019 08:06:30 PM EDT [facility] Telephoned Dr. Oc tompkins pt's c/o new sy mptoms of hallucinations. Orderedreceived, relayed to RN, SUSI Marroquin on slot shift supervisor Name Value Range Interpretation Code Description Data [facility](s) Supporting Document(s ) ID Date Data Source [id number] 10/30/2019 08:01:35 PM EDT [facility] Verbal shift change report given to Cecilia wells (oncoming nurse) by Samy Albert RN (offgoing nurse). Report included the fo llowing information SBAR, ProcedureSummary, Intake/Output, MAR and Recent Results. Name Value Range Interpretation Code Description Data [facility](s) Supporting Document(s ) ID Date Data Source [id number] 10/30/2019 02:58:51 PM EDT [facility] Problem: Mobility Impaired (Adult and Pe diatric)Goal: *Therapy Goal (Edit Goal, Insert Text)Note:PHYSICAL THERAPY EVALUA TIONPatient: Anna Bray (49 y.o. male)Date: 10/30/2019Primary Diagnosis: Bi [...] of morbidity or mortality cardiac cath at [facility] approx 6-8 months ago Other unknown [...] Home: NoneCritical Behavior:Neurologic State: AlertOrientation Level: Oriented E8Oarqlbxgz: Appropriate for age attention/concentrationSafety/Judgement: Awareness of environmentSkin:Strength:Strength: [...] and plan of care.Comments:Thank you for this jeannera Christ Enrique, PT,DPT Time Calculation: 19 mins Name Value Range Interpretation Code Description Data [facility](s) Supporting Document(s ) ID Date Data Source [id number] 10/30/2019 02:50:37 PM EDT [facility] Telehealth ConsultationPursuant to the e mergency declaration [...] was conducted via [] Telephone [] VideoconferenceSubjective:Patient: Anna BrayMRN #: [id number]: [id number]: 49 y.o. Sex: maleAdm it Date: 10/29/2019Attending: Ritika Canas, MDDate of Evaluation: 10/30/2019Reason fo r Referral: Anna Bray was admitted for being found on the floorand was unable t o get up.History of Presenting Problem:Patient is 49 y.o. male refd to psychiatry for having psychiatric illness.Consult dictated.Ronal Ayala MD 10/30/2019 11:14 AM Name Value Range Interpretation Code Description Data [facility](s) Supporting Document(s ) ID Date Data Source [id number] 10/30/2019 02:06:26 PM EDT [facility] Care Management InterventionsPCP Verifie d by CM: YesPalliative Care Criteria Met (RRAT>21 & CHF Dx)?: NoMode of Transport at Discharge: Other (see comment)(family)Transition of Care Consu lt (CM Consult): Discharge PlanningPhysical Therapy Consult: NoOccupational Therapy Consult: NoSpeech Therapy Consult: NoCurrent Support Network: Lives with Spouse, Own Home( [place] [phone])Confirm Foll ow Up Transport: FamilyThe Patient and/or Patient Comedian was Provided with a Choice of Providerand Agrees with the Discharge Plan?: YesFreedom of Choice Li st was Provided with Basic Dialogue that Supports thePatient's Individualized Gerson n of Care/Goals, Treatment Preferences and Sharesthe Quality Data Associated with t he Providers?: YesVeteran Resource Information Provided?: RefusedDischarge LocationDischarge Placement: HomePatient is a 49 year old male admitted on 10/29/19--spo ke with patient on thephone who states he lives home with his , is completely independent CRIMINAL INTELLIGENCE ANALYST, nohome DME. Patient normally works (pre-covid) and drives. CM dept roleexplained, patient is currently denying any HC or rehab needs and states hiswife will drive him home upon DC. PT eval is ordered and pending. CM dept laila lfollow if patient has any PT needs.CASE MANAGEMENT PSYCHOSOCIAL ASSESSMENTAnna Bray Admission Date: 10/29/2019MRN: [id number] of : 1970Current date: 10/30/2019DISCHARGE PLAN: homePatient Info rmation:Patients Preferred Name: annaPatient Arrived Via: StretcherTransferred [facility] a [facility]: NoInformation Obtained From: PatientPatient Objects to Receiving Bloo d: NoMRSA Assessment: Not applicableAuditory Impairment: NoneRetired Read Only-Readmi t Risk ToolSupport Systems: Family member(s)History of Falls Within Past 3 Months: NoNeeds Assistance with Wound Care AND/OR Mgnt of O2, Nebulizer: NoRequires Financial, Physical and/or Educational Assistance With Medications: NoHistory o f Mental Illness: NoLiving Alone: NoPCP: Ritika Canas MDAdmitting Provider: Cristi Canas MDINOVA ALEXANDRI[facility] CRIMINAL INTELLIGENCE ANALYST: naPayor: Payor: [facility] HEALTH [facility]AN / Plan: [facility] HEALTH PLAN /Product Type: HMO /[facility] Payor: @[email or web address]@Bipolar disorder with severe depression (HCC) [F 31.4]Bipolar disorder with severe depression (HCC) [F31.4]Patient Active Problem List Diagnosis Code H/O gastric bypass Z98.84 Insomnia G47.00 Neuropathic pain of surekha glover M79.2 Seizure disorder (HCC) G40.909 Spells R68.89 Severe obesity (HCC) E66. 01 Depression F32.9 Anxiety F41.9 Bipolar disorder (HCC) F31.9 Depressive disorde r F32.9 Status post gastric bypass for obesity Z98.84 Morbid obesity (HCC) E66 .01 Mixed anxiety and depressive disorder F41.8 Vitamin D deficiency E55.9 Bipol ar disorder with severe depression (HCC) F31.4Social HistorySubstance and Sexual ActivityAlcohol Use No Frequency: Never Drinks per session: 1 or 2 Binge freque ncy: NeverNumber of stairs into patient home:DME:Cohabitants:Abuse Screen:Physic al Abuse/Neglect: DeniesSexual Abuse: DeniesVerbal Abuse: DeniesOther Abuse/Is sues: Patient unable to answerINSURANCE INFORMATION: (Verification)Primary Note s:Secondary Notes:Workmen's Comp Notes:No-Fault Notes:SSD Notes:Un-Insure d Notes:Long-Term Care Insurance If Applicable Notes:Current Functioning:Aftab jozef barriers: Notes:Understanding nature/impact of illness: Notes:Ability to participate in plan: Notes:Realistic Problem solving and planning: Notes:Adeq uate coping skills: Notes:Yarsani/Cultural barriers: Notes:If unable to assess or n ot applicable: Notes:Suicide Assessment:Primary Diagnosis or Primary Complaint of an Emotional Behavior Disorder: NoPatient is Currently Experiencing Depr ession: NoSuicidal Ideation/Attempts: NoHomicidal Ideation/Attempts: NoAlcohol /Drug Intoxication: NoHallucinations/Delusions: NoPending, A ctive, or Temporary [facility] Orders: NoAggressive/Inappropriate Behavior: NoR eadmit Risk:Support Systems: Family member(s)Advanced Care Planning:Confirm Advance Directive: NoneDiscussed with the patient and all questions fully answered . He will call me ifany problems arise. Name Value Range Interpretation Code Description Data [facility] r[facility](s) Supporting Document(s ) ID Date Data Source [id number] 10/30/2019 12:38:13 PM EDT [facility] General Daily Progress NoteAdmit Date: Hospital day: .tdSubjective:Patient markedly improved this am, speech now no rmal. Denies possibleinadvertent overdose of chronic meds. Accepting of psych consult . PT toevaluate. Claims symptoms of mild nausea. Meds reviewed claims to be takin gElavil G 150 mg HS ,Klonopin 1 mg twice a day, [place] 300 twice daily, Vraylar3 m g dailyCurrent [...] past 8 hrs: BP Temp Pulse Resp FsB07910/30/19 0727 (!) 130/96 98 F (36.7 C) 81 20 95 %10/30/19 0351 (!) 118/97 98 F (36.7 C) 80 20 94 %No intake/output marlon a recorded.10/27 1901 - 10/29 0700In: 148.3 [I.V.:148.3]Out: - Physical Exam: General: WD, [...] Name Value Range Interpretation Code Description Data [facility] rce(s) Supporting Document(s ) ID Date Data Source [id number] 10/30/2019 07:52:05 AM EDT [facility] Verbal shift change report given to Chandrakant rosa RN (oncoming nurse) Tavares UGALDE (offgoing nurse). Report included the fo llowing information SBAR,Kardex, Procedure Summary, Intake/Output, MAR and Recent R esults. Name Value Range Interpretation Code Description Data [facility] rce(s) Supporting Document(s ) ID Date Data Source [id number] 10/30/2019 06:40:05 AM EDT [facility] Pt. AOX3, periodic confusion. Commode an d urinal at bedside. Seizure and fallprecaution measures in place. Voice s no complaint during shift . Name Value Range Interpretation Code Description Data [facility] r[facility](s) Supporting Document(s ) ID Date Data Source [id number] 10/30/2019 07:29:12 AM EDT [facility] Name Value Range Interpretation Description Data Sup porting Code Source(s) Document(s ) Sodium 139 136-145 [facility] - Good [Moles/volume] mmol/L [facility] in Serum or Hospital Plasma Potassium 3.6 3.5-5.1 [facility] - Good [Moles/volume] mmol/L [facility] in Serum or Hospital Plasma Chloride 110 98-107 Above high normal [facility] - Good [Moles/volume] mmol/L [facility] in Serum or Hospital Plasma Carbon 24 21-32 [facility] - Good dioxide, total mmol/L [facility] [Moles/volume] Hospital in Serum or Plasma Anion gap in 9 mmol/L 10-20 Below low normal [facility] - Go od Serum or [facility] Plasma Hospital Glucose 96 mg/dL 74-106 [facility] - Good [Mass/volume] [facility] in Serum or Hospital Plasma Urea nitrogen 10 mg/dL 7-18 [facility] - Good [Mass/volume] [facility] in Serum or Hospital Plasma Creatinine 0.81 0.70-1.3 [facility] - Good [Mass/volume] mg/dL 0 [facility] in Serum or Hospital Plasma Glomerular >60 [facility] - Good filtration [facility] rate/1.73 sq M Hospital predicted among blacks [Volume Rate/Area] in Serum or Plasma by Creatinine-bas ed formula (MDRD) Glomerular >60 [facility] - Good filtration [facility] rate/1.73 sq M Hospital predicted among non-blacks [Volume Rate/Area] in Serum or Plasma by Creatinine-bas ed formula (MDRD) Calcium 8.2 8.5-10.1 Below low normal [facility] - Good [Mass/volume] mg/dL [facility] in Serum or Hospital Plasma ID Date Data Source [id number] 10/30/2019 07:05:07 AM EDT [facility] Name Value Range Interpretation Description Data Sup porting Code Source(s) Document(s ) Leukocytes 4.8 K/uL 4.8-10.6 [facility] - [#/volume] in Good Blood by [facility] Automated count Hospital Erythrocytes 4.59 4.70-6.0 Below low normal [facility] - [#/volume] in M/uL 0 Good Blood by [facility] count [facility] Hemoglobin 14.0 14.0-18. [facility] - [Mass/volume] in g/dL 0 [facility] Blood [facility] Hematocrit 42.7 % 42.0-52. [facility] - [Volume 0 Good Fraction] of [facility] Blood by Hospital Automated count Erythrocyte mean 93.0 FL 81.0-94. [facility] - corpuscular 0 Good volume [Entitic [facility] volume] by Hospital Automated count Erythrocyte mean 30.5 PG 27.0-35. [facility] - corpuscular 0 Good hemoglobin [facility] [Entitic mass] Hospital by Automated count Erythrocyte mean 32.8 30.7-37. [facility] - corpuscular g/dL 3 Good hemoglobin [facility] Hospital [Mass/volume] by Automated count Erythrocyte 13.3 % 11.5-14. [facility] - distribution 0 Good width [Ratio] by [facility] Automated count [facility] Platelets 159 K/uL 130-400 [facility] - [#/volume] in Good Blood by [facility] Platelet mean 8.6 FL 9.2-11.8 Below low normal [facility] - volume [Entitic Good volume] in Blood [facility] by Automated Hospital count Nucleated 0.0 PER 0 [facility] - erythrocytes/100 100 WBC Good leukocytes [facility] [Ratio] in Blood Hospital Nucleated 0.00 0.0-0.01 [facility] - erythrocytes K/uL Good [#/volume] in [facility] Blood [facility] Segmented 54 % 48.0-72. [facility] - neutrophils/100 0 Good leukocytes in [facility] Lymphocytes/100 32 % 18.0-40. [facility] - leukocytes in 0 [facility] Blood [facility] Monocytes/100 9 % 2.0-12.0 [facility] - leukocytes in [facility] Blood [facility] Eosinophils/100 5 % 0.0-7.0 [facility] - leukocytes in [facility] Basophils/100 1 % 0.0-3.0 [facility] - leukocytes in [facility] Immature 0 % 0-0.5 [facility] - granulocytes/100 Good leukocytes in [facility] Blood by Hospital Automated count Segmented 2.6 K/UL 2.3-7.6 [facility] - neutrophils Good [#/volume] in [facility] Lymphocytes 1.5 K/UL 0.9-4.2 [facility] - [#/volume] in [facility] Monocytes 0.4 K/UL 0.1-1.7 [facility] - [#/volume] in [facility] Eosinophils 0.2 K/UL 0.0-1.0 [facility] - [#/volume] in [facility] Basophils 0.0 K/UL 0.0-0.4 [facility] - [#/volume] in [facility] Immature 0.0 K/UL 0.0-0.17 [facility] - granulocytes Good [#/volume] in [facility] Automated count Differential [facility] - cell count [facility] method [facility] ID Date Data Source [id number] 10/29/2019 07:40:21 PM EDT [facility] Verbal shift change report given to Wai rogers RN(oncoming nurse) by Elizabeth Meehan RN (offgoing nurse). Report included the fo llowing information SBAR, Kardex, EDSummary, Intake/Output, MAR and Recent Results. Name Value Range Interpretation Code Description Data Melani rce(s) Supporting Document(s ) ID Date Data Source [id number] 10/30/2019 06:54:22 PM EDT [facility] Name Value Range Interpretation Description Data Sup porting Code Source(s) Document(s ) Color of Urine YEL BSS - [facility] Appearance of CLEAR [facility] - Urine [facility] Specific gravity 1.015 1.003-1. [facility] - of Urine by 030 [facility] Refractometry [facility] pH of Urine by 6.0 4.6-8.0 [facility] - Test strip [facility] Protein NEG [facility] - [Mass/volume] in [facility] Urine by Test [facility] Glucose NEG [facility] - [Mass/volume] in Good Urine by [facility] Automated test Hospital strip Ketones NEG [facility] - [Presence] in Good Urine by [facility] Automated test Hospital strip Bilirubin.total NEG [facility] - [Presence] in Good Urine [facility] Hemoglobin NEG [facility] - [Presence] in Good Urine by Test [facility] Urobilinogen 1.0 0.2-1.0 [facility] - [Presence] in EU/dL Good Urine by [facility] Automated test Hospital strip Nitrite NEG [facility] - [Presence] in Good Urine by [facility] Automated test Hospital strip Leukocyte NEG [facility] - esterase Good [Presence] in [facility] Urine by Hospital Automated test strip ID Date Data Source [id number] 10/29/2019 06:14:12 PM EDT [facility] Spoke with to clarify meds..correct doses obtained Name Value Range Interpretation Code Description Data Melani rce(s) Supporting Document(s ) ID Date Data Source [id number] 10/29/2019 06:01:22 PM EDT [facility] Pt unsure of dose of Vraylar will call w berta Name Value Range Interpretation Code Description Data Melani rce(s) Supporting Document(s ) ID Date Data Source [id number] 10/29/2019 03:56:40 PM EDT [facility] [id number] [facility] [employer] GSH 4 GEMA [place] MED SURG [address] [facility] [address] [phone] Anna Bray (Male) [id number] ES I 2 ED Dispo:ADMIT Chief Complaint: Dysarthria, Lethargy Diagnosis: Altered mental status, unspecified altered mental statu s type [] Bipolar disorder with severe depression (HCC) [] Current Providers: Att ending: Cole Ernandez; Cristi Canas Consulting Provider: Cristi Canas Primary Nurse: Kristy Moss Tech: GonzalesHERMANN albrechtN: [id number] [employer] [id number] - Bs hsi [employer] MrnMRN: [id number] [employer] [id number] - Bshsi [employer] Age Sex 1970 AGE 49 SEX Male Primary Care Provider: Ritika Canas MD Lggvqebbx: (No Kn own Allergies)Date Reviewed: 10/29/2019Reviewed by: Ritika Canas MD - Review CompleteED Provider Notes: All no tesHNO ID: [id number]: Cristobal Ernandez MDService: -Author Type: PhysicianFiled: 10/29/19 1428Note Text:T he history is provided by the spouse.10:55 AM: Anna Spain is a 49 y.o. male with [...] of morbidity or mortality cardiac cath at [facility] approx 6-8 months ago Other [...] week Gets together: Once a week Attends anglican service: More than 4 times per year [...] QTC Calculation (Bezet) 446 ms Calculated P Rayle 53 degrees Calc ulated R Rayle 68 degrees Calculated T Rayle 0 degrees Diagnosis Sinus tachycardiaProlonged FL intervalNo nspecific intraventricular conduction delayCBC WITH AUTOMATED [...] Time: 10/29/19 10:45 AMResult Value Ref Range [place] level <0.20 (L) 0.6 - 1.2 MMOL/L [...] contrast. Sagittal and coronalreconstruction was performed. Utilizing set up operator tool algorithm theexaminationwas performed to optimize imaging quality [...] status, unspecified altered menta l status type [id number] condition at time of disposition: StableI have reviewed the following home medications:Prior to Admission medicationsMedication Sig Start Date End Date Taking? Authorizing ProviderVrhari ylar 3 mg capsule 09/03/19 Provider, Historicalamitriptyline (ELAVIL) 150 mg tablet TAKE 1 TABLET ORA LLY NIGHTLY DOSECHANGED 08/20/19 Provider, Historicallithium carbonate 150 mg capsule Take 300 mg by mouth three (3) timesdaily. Suzette, MD PaulvalACYclovir (VALTREX) 1 gram tablet 07/17/18 Provider, Sneha ricalclonazePAM (KLONOPIN) 2 mg tablet Take 1 [...] d thediagnostic studies, unless otherwise noted.+ED Orders [id number] CBC WITH AUTOMATED DIFF [# [id number]] Priority: STAT Class: ER Collect Standing Order Information Remaining Occurrences:0 /1 Interval:ONE TIME Last released:10/29/2019 Released orders: SunOctober 29, 2019 11:02 AM by: CRISTOBAL ERNANDEZ [id number] METABOLIC PANEL, COMPREHENSIVE [#[id number]] Bridgette ority: STAT Class: ER Collect Standing Order Information Remaining Occurrences:0/1 Inter haile:ONE TIME Last released:10/29/2019 Released orders: SunOctober 29, 2019 11:02 AM by: CRISTOBAL WADE [id number] PROTHROMBIN TIME + INR [#[id number]] Priority: STAT Class: E R Collect Standing Order Information Remaining Occurrences:0/1 Interval:ONE TI ME Last released:10/29/2019 Released orders: SunOctober 29, 2019 11:02 AM by: BRIE ERNANDEZ EN [id number] PTT [#[id number]] Priority: STAT Class: ER Collect Speci men Source: Blood Standing Order Information Remaining Occurrences:0/1 Interval:ONE TI ME Last released:10/29/2019 Released orders: SunOctober 29, 2019 11:02 AM by: BRIE ERNANDEZ [id number] URINALYSIS W/ RFLX MICROSCOPIC [#[id number]] Priority: STAT Class: ER Collect Sta nding Order Information Remaining Occurrences:0/1 Interval:ONE TIME Last released:0 10/29/2019 Released orders: SunOctober 29, 2019 11:02 AM by: CRISTOBAL ERNANDEZ [id number] LITHIUM [#[id number]] Priority: STAT Class: ER Collect Standing Order Information Remaining Occurrences:0/1 Interval:ONE TIME Last released:10/29/2019 Released orders : SunOctober 29, 2019 11:02 AM by: CRISTOBAL ERNANDEZ [id number] CBC WITH AUTOMATED DIFF [# [id number]] Priority: STAT Class: ER Collect Specimen Source: Whole Blood Specimen Collected: 020 10:45 AM Resulting Agency: [facility] Test ID: [id number] Released on: 0 11:02 AM [id number] METABOLIC PANEL, COMPREHENSIVE [#[id number]] Priority: STAT Class: E R Collect Specimen Source: Plasma Specimen Collected: 10/29/2019 10:45 AM Resulting Agency: [facility] Test ID: MPL Released on: 10/29/2019 11:02 AM [id number] PROTHROMBIN TIME + IN R [#[id number]] Priority: STAT Class: ER Collect Specimen Source: Plasma Specimen Collec hyun: 10/29/2019 10:45 AM Resulting Agency: [facility] Test ID: APTHR Released o n: 10/29/2019 11:02 AM [id number] PTT [#[id number]] Priority: STAT Class: ER Collect Specimen Source: Plasma Specimen Collected: 10/29/2019 10:45 AM Resulting Agency: [facility] Test ID: APTT Released on: 10/29/2019 11:02 AM [id number] URINALYSIS W/ RFLX IL CROSCOPIC [#[id number]] Priority: STAT Class: ER Collect Resulting Agency: [facility] Test ID: UA Released on: 10/29/2019 11:02 AM [id number] LITHIUM [#[id number]] Priority: STAT Class: ER Collect Specimen Source: Serum Specimen Collected: 10/28 10:45 AM Resulting Agency: [facility] Test ID: LI Released on: 10/29/2019 11:02 AM [id number] CBC WITH AUTOMATED DIFF [#[id number]] Priority: STAT Class: E R Collect Standing Order Information Remaining Occurrences:1 Interval:TOMORR OW AM [id number] METABOLIC PANEL, BASIC [#[id number]] Priority: STAT Class: ER Collect St anding Order Information Remaining Occurrences:1 Interval:TOMORROW AM [id number] CT HEAD W O CONT [#[id number]] Priority: Routine Class: Hospital Performed Standing Or mariano Information Remaining Occurrences:0/1 Interval:ONE TIME Last released:10/29/2019 Released orders: SunOctober 29, 2019 11:02 AM by: CRISTOBAL ERNANDEZ Reason for Exam -> ams IMG 2590 XR CHEST PORT [#[id number]] Priority: STAT Class: Hospital Performe d Standing Order Information Remaining Occurrences:0/1 Interval:ONE TIME Last release d:10/29/2019 Released orders: SunOctober 29, 2019 11:02 AM by: CRISTOBAL ERNANEDZ Reason for Exam -> ams [id number] CT HEAD WO CONT [#[id number]] Priority: STAT Class: Hospital Perfo rmed Specimen Collected: 10/29/2019 11:54 AM Resulting Agency: [facility] Test ID: [id number] Ivis son for Exam -> ams Released on: 10/29/2019 11:02 AM [id number] XR CHEST PORT [#[id number]] Priority: STAT Class: Hospital Performed Specimen Collected: 10/29/2019 12:16 PM Resultin g Agency: [facility] Test ID: [id number] Reason for Exam -> ams Released on: 10/29/2019 11:02 AM [id number] EKG, 12 LEAD, INITIAL [#[id number]] Priority: STAT Class: Hospital Performe d Standing Order Information Remaining Occurrences:0/1 Interval:ONE TIME Last release d:10/29/2019 Released orders: SunOctober 29, 2019 11:02 AM by: CRISTOBAL ERNANDEZ Reason for Exam : -> chest pain [id number] EKG, 12 LEAD, INITIAL [#[id number]] Priority: STAT Class: H ospital Performed Resulting Agency: [facility] Test ID: [id number] Reason for Exam: -> chest pain Releas ed on: 10/29/2019 11:02 AM [id number] POC GLUCOSE [#[id number]] Priority: STAT Cl ass: Hospital Performed Standing Order Information Remaining Occurrences:0/1 Interval:ONE TI ME Last released:10/29/2019 Released orders: SunOctober 29, 2019 11:02 AM by: BRIE ERNANDEZ EN [id number] POC GLUCOSE [#[id number]] Priority: STAT Class: Hospital Performe d Released on: 10/29/2019 11:02 AM [id number] VITAL SIGNS PER UNIT ROUTINE [#[id number]] Priorit y: STAT Class: Hospital Performed Standing Order Information Remaining Occurrences:0/1 Inte rval:CONTINUOUS Last released:10/29/2019 Released orders: SunOctober 29, 2019 2:54 PM by: RITIKA CANAS Comment:More frequently if Indicated. [id number] BEDREST, COMPLETE [#[id number]] Priority: STAT Class: Hospital Performed Standing Order Information Remainin g Occurrences:0/1 Interval:CONTINUOUS Last released:10/29/2019 Released orders : SunOctober 29, 2019 2:54 PM by: RITIKA CANAS [id number] NOTIFY PROVIDER: VITAL SIGNS CHANGES [# [id number]] Priority: STAT Class: Hospital Performed Standing Order [...] Less than 120 ml in 4 hours [id number] APPLY/MAINTAIN SEQUENTIAL COMPRESSIO* [#[id number]] Priority: ST AT Class: Hospital Performed Standing Order Information Remaining Occurrences:0/1 Inter haile:CONTINUOUS Last released:10/29/2019 Released orders: SunOctober 29, 2019 2:54 PM by: RITIKA CANAS [id number] VITAL SIGNS PER UNIT ROUTINE [#[id number]] Priority: STAT Class: H ospital Performed Comment:More frequently if Indicated. Released on: 10/29/2019 2:54 PM [id number] 4 BEDREST, COMPLETE [#[id number]] Priority: STAT Class: Hospital Performed Relea sed on: 10/29/2019 2:54 PM [id number] NOTIFY PROVIDER: VITAL SIGNS CHANGES [#[id number]] Priority: STAT Class: Hospital Performed Temp -> [...] carmen rs Released on: 10/29/2019 2:54 PM [id number] APPLY/MAINTAIN SEQUENTIAL COMPRESSIO* [#[id number]] P riority: STAT Class: Hospital Performed Released on: 10/29/2019 2:54 PM SODIUM CHLORIDE 0.9 % IJ SYRG [#[id number]] Priority: STAT Class: Normal SODIUM CHLORIDE 0.9 % IJ SYRG [#[id number]] Priority: STAT Class: Normal ACETAMINOPHEN 325 MG TABLET [# [id number]] Priority: STAT Class: Normal ENOXAPARIN 40 MG/0.4 ML SUB-Q SYRINGE [#[id number]] Priority: STAT Class: Normal SODIUM CHLORIDE 0.9 % IV [#[id number]] Priority: STAT Class: Normal [id number] GLUCOSE, POC [#[id number]] Priority: Routine Class : ER Collect Resulting Agency: [facility] Test ID: BGG Standing Order Informati on Remaining Occurrences:0/1 Released orders: SunOctober 29, 2019 11:26 AM by: Automatic B atc Process [id number] GLUCOSE, POC [#[id number]] Priority: Routine Class : ER Collect Specimen Source: Whole Blood Specimen Collected: 10/29/2019 11:26 AM Resulting Agency: [facility] Test ID: BGG Released on: 10/29/2019 11:26 AM [id number] IP CONSULT TO PRIMARY CARE PROVIDER [#[id number]] Priority: STAT Class: Hospital Performed Standing Order Inf ormation Remaining Occurrences:0/1 Interval:ONE TIME Last released:10/29/2019 Relea sed orders: SunOctober 29, 2019 12:59 PM by: CRISTOBAL ERNANDEZ Reason for Consult: -> admit Did you call or speak to the consulting provider? -> No Consult To -> dr canas [id number] IP CONSULT TO PRIMAR Y CARE PROVIDER [#[id number]] Priority: STAT Class: Hospital Performed Reason for Consult: -> ad rei Did you call or speak to the consulting provider? -> No Consult To -> dr canas Released on: 12:59 PM CON53 IP CONSULT TO PSYCHIATRY [#[id number]] Priority: STAT Class: H ospital Performed Standing [...] -> TODAY CON53 IP CONSULT TO PSYCHIATRY [#[id number]] Priority: STAT Class: Hospital Performed Reason for Consult: -> 49 yo male with severe bipolar diseas e, admitted with slurred speech, severe weakness Did you call or speak to t he consulting provider? -> No Consult To -> Dr Aguirre Schedule When? -> TODAY Released on: 10/29/2019 2:54 PM [id number] INITIAL PHYSICIAN ORDER: INPATIENT [#[id number]] Priority: Routine Class : ADT Pend Transfer [...] CANAS [facility]: [facility] Home with Office Follow-up [id number] INITIAL PHYSICIAN ORDER: INPATIENT [# [id number]] Priority: Routine Class: ADT Pend Transfer Status: [...] Foll ow-up Released on: 10/29/2019 2:43 PM [id number] INITIAL PHYSICIAN ORDER: INPATIENT [#[id number]] Priority: Routine Class: ADT Pend Transfer [...] 3-4 Midnights Discharge Plan: -> Other (Specify) [id number] INITIAL PHYSIC JOSE ORDER: INPATIENT [#[id number]] Priority: Routine Class: ADT Pend Transfer Status: [...] 2:54 PM IVT3 INSERT PERIPHERAL IV [# [id number]] Priority: STAT Class: Hospital Performed Standing Order Information Remaining Occurre nces:0/ Interval:ONE TIME Last released:10/29/2019 Released orders: Sun 6, 2 020 2:54 PM by: RITIKA CANAS IVT3 INSERT PERIPHERAL IV [#[id number]] Priority: ST AT Class: Hospital Performed Released on: 10/29/2019 2:54 PM CON75 IP CONSULT TO PHYSICAL THERAPY [#[id number]] Priority: STAT Class: Hospital Performed Standing Order Information Remainin g Occurrences: Interval:DAILY Last released:10/29/2019 Released orders : SunOctober 29, 2019 2:54 PM by: RITIKA CANAS CON75 IP CONSULT TO PHYSICAL THERAPY [#[id number]] Priority: STAT Class: Hospital Performed Released on: 10/29/2019 2:54 PM COD2 FULL CODE [#[id number]] Priority: STAT Class: Hospital Performed Standing Order Inf ormation Remaining Occurrences:0/1 Interval:CONTINUOUS Last released:10/29/2019 Rel eased orders: SunOctober 29, 2019 2:54 PM by: RITIKA CANAS COD2 FULL CODE [#[id number]] Priority: STAT Class: Hospital Performed Released on: 10/29/2019 2:54 PM DIET10 4 DIET FULL LIQUID [#[id number]] Priority: STAT Class: Hospital Performed Stand ing Order Information Remaining Occurrences:0/1 Interval:DIET EFFECTIVE NOW Last released:10/29/2019 Released orders: SunOctober 29, 2019 2:54 PM by: RITIKA CANAS Comment:A dvance as tolerated to regular diet [id number] DIET FULL LIQUID [#[id number]] Priority: STAT Class: Hospital Performed Comment:Advance as tolerated to regular diet Released on: 10/29/2019 2:54 JORDYAnna waddell MR#: [id number] * Rm: 416-02Ht: 5' 7" Wt: 3 00 lb Code: Full Code Iso:Diagnosis:Bipolar disorder with severe depression (HCC) [F31.4]Allergies : No Known Allergies -------- Current as of: 10/29/19 1556 ---aspirin (ASPIRIN) tablet 325 mg #[id number] Admin Amount: 1 Tab (1 x 325 mg Tab) Ordered Dose: 325 mg Route: Oral Freq: ONCE Start Date: 12/24/13 No administration times (back 96 hours, ahead 96 hours). ------diphenhydrAMINE (BENADRYL) capsule 50 mg #[id number] Admin Amount: 1 Cap (1 x 50 mg Cap) Ordered Dose: 50 mg [place] band: Oral Freq: NOW Start Date: 12/24/13 No administration times (back 96 hours, e ad 96 hours). ------diazepam (VALIUM) tablet 5 mg #[id number] Admin Amount: 1 Tab (1 x 5 mg Tab) Ordered Dose: 5 mg Route: Ora l Freq: ONCE Start Date: 12/24/13 No administration times (back 96 hours, e ad 96 hours). ------lidocaine (XYLOCAINE) 10 mg/mL (1 %) injection 1-30 mL #[id number] Admin Amount: 1-30 mL Ordered Dose: 1-30 mL Route: IntraDERMal Freq: ONC E Start Date: 12/24/13 No administration times (back 96 hours, ahead 96 hours). ------heparin (PF) 2 units/ml in NS infusion 2,000 Units #[id number] Admin Amount: 1,000 mL = 2,000 Units of 2 Units/mL Ordered Dose: 1,000 mL Route: Irrigation Freq: ONCE Start Date: 12/24/13 No administration times (b ack 96 hours, ahead 96 hours). ------heparinized saline 2 units/mL infusion 1,000 Units #[id number] Admin Amount: 500 mL = 1,000 Units of 2 Units/mL Ordered Dose: 500 mL R oute: IntraarTERial Freq: ONCE Start Date: 12/24/13 No administration times (back 96 hours, ahead 96 hours). ------0.9% sodium chloride infusion #[id number] Ordered Dose: 75 mL/hr Route: IntraVENous Freq: CONTINUOUS Start Date: 12/24/13 Rate: 75 mL/hr Duration: No administration times (back 96 hours, ahead 96 hours). ------ioversol (OPTIRAY) 320 mg iodine/mL contrast injection 1-100 mL #[id number] Admin Amount: 1-100 mL Ordered Dose: 1-100 mL Route: IntraVENous Freq: RAD ONCE Start Date: 12/24/13 No administration times (back 96 hours, ahead 96 hours).Anna Bray MR#: [id number] * Rm: 416-02Ht: 5' 7" Wt: 300 lb Code: Full Code Iso:Diagnosis:Bipolar disorder with severe depression (HCC) [F31.4]Allergies: No Kn own Allergies -------- Current as of: 10/29/19 1556 ---gadobutrol (GADAVIST) contrast solution 1-10 mL #[id number] Admin Amount: 1-10 mL Ordered Dose: 1-10 mL Route: IntraVENo us Freq: RAD ONCE Start Date: 01/13/14 No administration times (back 96 hours, ahe ad 96 hours). ------sodium chloride (NS) flush 5-10 mL #[id number] Admin Amount: 5-10 mL Ordered Dose: 5-10 mL Route: IntraVENous Freq: RA D ONCE Start Date: 01/13/14 No administration times (back 96 hours, ahead 96 hours). ------sodium chloride (NS) 0.9 % flush #[id number] Ordered Dose: Route: Freq: Start D ate: 01/13/14 No administration times (back 96 hours, ahead 96 hours). ------morphine injection 2 mg #[id number] Admin Amount: 1 mL = 2 mg of 2 mg/mL Ordered Dose: 2 mg Route: Int raVENous Freq: NOW Start Date: 03/13/15 No administration times (back 96 hours, ahe ad 96 hours). ------influenza vaccine (4 yr+)(PF) (FLUCELVAX QUAD) inj ection 0.5*#[id number] Admin Amount: 0.5 mL Ordered Dose: 0.5 mL Route: IntraMUSCular Freq : PRIOR TO DISCHARGE Start Date: 03/30/16 No administration times (back 96 hours, ahead 96 hours). ------oxyCODONE-acetaminophe n (PERCOCET) 5-325 mg per tablet 1 Tab #[id number] Admin Amount: 1 Tab Ordered Dose: 1 Tab Route: Oral Freq: NOW Start Date: 09/07/17 No administration times (back 96 hours, ahead 96 hours). ------barium sulfate (READICAT) 2.1 % (w/v), 2.0 % (w /w) oral suspension 9*#[id number] Admin Amount: 900 mL Ordered Dose: 900 mL Route: Ora l Freq: RAD ONCE Start Date: 10/15/17 No administration times (back 96 hours, ahe ad 96 hours). ------iopamidol (ISOVUE 300) 61 % contrast injection 100 mL #[id number] Admin Amount: 100 mL Ordered Dose: 100 mL Route: IntraVENous Freq: RAD O NCE Start Date: 10/15/17 No administration times (back 96 hours, ahead 96 hours).Anna Bray MR#: [id number] * Rm: 416-02Ht: 5' 7" Wt: 300 lb Cod e: Full Code Iso:Diagnosis:Bipolar disorder with severe depression (HCC) [F31.4]Allergies: No Kn own Allergies -------- Current as of: 10/29/19 1556 ---risperiDONE (RisperDAL m-tabs) disintegrating tablet 1 mg #[id number] Admin Amount: 1 Tab (1 x 1 mg Tab) Ordered Dose: 1 mg [place] band: Oral Freq: ONCE Start Date: 12/24/17 No administration times (back 96 hours, e ad 96 hours). ------ALPRAZolam (XANAX) tablet 2 mg #[id number] Admin Amount: 4 Tab (4 x 0.5 mg Tab) Ordered Dose: 2 mg Route: Ora l Freq: NOW Start Date: 12/24/17 No administration times (back 96 hours, e ad 96 hours). ------lamoTRIgine (LaMICtal) tablet 100 mg #[id number] Admin Amount: 1 Tab (1 x 100 mg Tab) Ordered Dose: 100 mg Route: Ora l Freq: ONCE Start Date: 12/24/17 No administration times (back 96 hours, ahe ad 96 hours). ------OLANZapine (ZyPREXA zydis) disintegrating tablet 5 mg #[id number] Admin Amount: 1 Tab (1 x 5 mg Tab) Ordered Dose: 5 mg Route: Ora l Freq: ONCE Start Date: 12/25/17 No administration times (back 96 hours, e ad 96 hours). ------LORazepam (ATIVAN) tablet 2 mg #[id number] Admin Amount: 4 Tab (4 x 0.5 mg Tab) Ordered Dose: 2 mg Route: Ora l Freq: NOW Start Date: 12/25/17 No administration times (back 96 hours, e ad 96 hours). ------LORazepam (ATIVAN) injection 1 mg #[id number] Admin Amount: 0.5 mL = 1 mg of 2 mg/mL Ordered Dose: 1 mg [place] band: IntraVENous Freq: NOW Start Date: 12/25/17 No administration times (back 96 hours, ahead 96 hours). ------barium sulfate (EZ PAQUE) 96 % (w/w) contrast suspension 17 6 g #[id number] Admin Amount: 176 g Ordered Dose: 176 g Route: Oral Freq: RAD ONCE Start Date: 08/02/18 No administration times (back 96 hours, ahead 96 hours). ------barium sulfate (EZ PAQUE) 96 % (w/w) contrast suspension 17 6 g #[id number] Admin Amount: 176 g Ordered Dose: 176 g Route: Oral Freq: RAD ONCE Start Date: 08/02/18 No administration times (back 96 hours, ahead 96 hours).Anna Bray MR#: [id number] * Rm: 416-02Ht: 5' 7" Wt: 300 lb Code: Full Co de Iso:Diagnosis:Bipolar disorder with severe depression ([facility]) [F31.4]Allergies: No Known Allergies -------- Current as of: 10/29/19 1556 ---aspirin chewable tablet 162 mg #[id number] Admin Amount: 2 Tab (2 x 81 mg Tab) Ordered Dose: 162 mg Route: Ora l Freq: NOW Start Date: 08/10/19 No administration times (back 96 hours, e ad 96 hours). ------0.9% sodium chloride infusion 1,000 mL #[id number] Admin Amount: 1,000 mL Ordered Dose: 1,000 mL Route: IntraVENous Freq: O NCE Start Date: 08/16/19 Rate: 1,000 mL/hr Duration: No administratio n times (back 96 hours, ahead 96 hours). ------methylPREDNISolone (PF) (Solu-MEDROL) injection 125 mg #[id number] Admin Amount: 2 mL = 125 mg of 125 mg/2 mL Ordered Dose: 125 mg [place] band: IntraVENous Freq: NOW Start Date: 08/16/19 No administration times (back 9 6 hours, ahead 96 hours). ------aspirin chewable tablet 162 mg #[id number] Admin Amount: 2 Tab (2 x 81 mg Tab) Ordered Dose: 162 mg Route: Ora l Freq: NOW Start Date: 08/16/19 No administration times (back 96 hours, ahe ad 96 hours). ------sodium chloride (NS) flush 5-40 mL #[id number] Admin Amount: 5-40 mL Ordered Dose: 5-40 mL Route: IntraVENous Freq: EV AN 8 HOURS Start Date: 10/29/19 Administration times (back 96 hours, ahead 96 hours): : 1400 2200 10/30/19: 0600 1400 2200 10/31/19: 599 1400 2200 11/01/19: 599 1400 219911/02/19: 599 1400 ---sodium chloride (NS) flush 5-40 mL #[id number] Admin Amount: 5-40 mL Ordered Dose: 5-40 mL Route: IntraVENous Freq: NEEDED Start Date: 10/29/19 No administration times (back 96 hours, ahead 96 hours). ------acetaminophen (TYLENOL) tablet 650 mg #[id number] Admin Amount: 2 Tab (2 x 325 mg Tab) Ordered Dose: 650 mg [place] band: Oral Freq: EVERY 4 HOURS NEEDED Start Date: 10/29/19 No administration times (back 96 hours, ahe ad 96 hours).Anna Bray MR#: [id number] * Rm: 416-02Ht: 5' 7" Wt: 3 00 lb Code: Full Code Iso:Diagnosis:Bipolar disorder with severe depression (HCC) [F31.4]Allergies : No Known Allergies -------- Current as of: 10/29/19 1556 ---enoxaparin (LOVENOX) injection 40 mg #[id number] Admin Amount: 0.4 mL = 40 mg of 40 mg/0.4 mL Ordered Dose: 40 mg Route: SubCUTAneous Freq: EVERY 24 HOURS Start Date: 10/29/19 Administration times (back 96 hours, ahead 96 hours): 10/29/19: 1455 10/30/19: 1455 10/31/19: 14511/01/19: 14511/02/19 : 1455 ---0.9% sodium chloride infusion #[id number] Ordered Dose: 100 mL/hr Route: IntraVENous Freq: [...] Supporting Document(s ) ID Date Data Source [id number] 10/29/2019 03:54:13 PM EDT [facility] History & PhysicalBrian Anam Bray is a [...] is barely intelligible.Phone call to his Benjamin on indicates the patient has been taking hismedication [...] of morbidity or mortality cardiac cath at [facility] approx 6-8 months ag o Other unknown [...] week Gets together: Once a week Attends anglican service: More than 4 times per year [...] trast. Sagittal and coronal reconstruction was performed.Utilizing set up operator tool alg orithm the examination was performed to [...] QTC Calculation (Bezet) 446 ms Calculated P Rayle 53 degrees Calculat ed R Rayle 68 degrees Calculated T Rayle 0 degrees Diagnosis Sinus tachycardiaProl onged FL intervalNonspecific intraventricular conduction delayCBC WITH AUTOMATED DIFF [...] lydia: 10/29/19 10:45 AMResult Value Ref Range [place] level <0.20 (L) 0.6 - 1.2 MMOL/L GLUCOSE, POC Collection Time: 10/29/19 11:26 AMResult Value Ref Range Glucose, bedsid e 102 65 - 110 MG/DLAll lab results for the last 24 hours reviewed.Assessment/PlanAc tive Problems: Bipolar disorder with severe depression (HCC) (10/29/2019) possible valentina dvertentoverdoseGeorge MD Corey Name Value Range Interpretation Code Description Data Melani rce(s) Supporting Document(s ) ID Date Data Source [id number] 10/29/2019 03:42:10 PM EDT [facility] TRANSFER - OUT REPORT:Verbal report give n to herminio RN(name) on Anna Bray being transferred to(unit) for routine progr ession of careReport consisted of patient's Situation, Background, Assessment andRec ommendations(SBAR).Information from the following report(s) SBAR, Kardex, ED Sum heather, MAR andRecent Results was reviewed with the receiving nurse.Lines:Peripheral [...] Supporting Document(s ) ID Date Data Source [id number] 10/29/2019 02:28:59 PM EDT [facility] The history is provided by the spouse.10 :55 AM: Anna Spain is a 49 y.o. male with [...] morbidity or mortal ity cardiac cath at [facility] approx 6-8 months ago Other [...] week Gets together: Once a week Attends anglican service: More than 4 times per year [...] QTC Calculation (Bezet) 446 ms Calculated P Rayle 53 degr ees Calculated R Rayle 68 degrees Calculated T Rayle 0 degrees Diagnosis Sinus tachycar diaProlonged FL intervalNonspecific intraventricular conduction delayCBC WIT H AUTOMATED [...] lydia: 10/29/19 10:45 AMResult Value Ref Range [place] level <0.20 (L) 0.6 - 1.2 MMOL/L GLUCOSE, POC Collection Time: 10/29/19 11:26 AMResult Value Ref Range Glucose, bedsid e 102 65 - 110 MG/DLEKG: Sinus tachycardia at a rate of [address] or T wave fuentes es.Interpreted by Cristobal Ernandez, YAHAIRAadiology:CXR RESULTS:CXR Results (La st 48 hours) 10/29/19 [...] Sagittal and coronalreconstru ction was performed. Utilizing set up operator tool algorithm the examinationwas performed t o optimize [...] (VALTR EX) 1 gram tablet 07/17/18 Provider, HistoricalclonazePAM (KLONOPIN) 2 mg tab let Take 1 mg by mouth daily. Suzette, Ailyn Miller Stephen, MD I, Alexander Costa, am serving as a scribe to document services personallyperformed by Cristobal Ernandez MD based on my observation and the provider'sstatements to me.I, Sulaiman Ernandez MD, attest that the person(s) noted above, acting as myscribe(s) noted above , has observed my performance of the services and hasdocumented them in accordance wit h my direction. I have personally reviewed theabove information and have ordered an d reviewed the diagnostic studies, unlessotherwise noted.+ Name Value Range Interpretation Code Description Data Melani rce(s) Supporting Document(s ) ID Date Data Source [id number] 10/29/2019 12:17:28 PM EDT [facility] XR CHEST PORTCLINICAL INDICATION PROVIDE D:. [...] Supporting Document(s ) ID Date Data Source [id number] 10/29/2019 11:55:57 AM EDT [facility] CT HEAD WO CONTClinical data: amsPriors: 03/13/2015.Technique: Multiple axial images were obtained from the skullbase to the vertexwithout administration of intravenous contrast. Sagittal and coronalreconstru ction was performed. Utilizing set up operator tool algorithm the examinationwas performed t o optimize [...] Supporting Document(s ) ID Date Data Source [id number] 10/29/2019 11:48:34 AM EDT [facility] Name Value Range Interpretation Description Data Sup porting Code Source(s) Document(s ) Glucose 102 MG/DL 65-110 [facility] - Good [Mass/volume] [facility] in Blood by Hospital Automated test strip ID Date Data Source [id number] 10/29/2019 10:49:56 AM EDT [facility] Patient lethargic, BIBA from home for le thargy and slurred speech. Name Value Range Interpretation Code Description Data Melani rce(s) Supporting Document(s ) ID Date Data Source [id number] 10/29/2019 11:29:33 AM EDT [facility] Name Value Range Interpretation Code Description Data Supporting Source(s) Document(s ) [place] 0.6-1.2 Below low normal [facility] - Good [Moles/volum [facility] e] in Serum Hospital or Plasma ID Date Data Source [id number] 10/29/2019 11:28:52 AM EDT [facility] Name Value Range Interpretation Description Data Sup porting Code Source(s) Document(s ) Sodium 136 136-145 [facility] - Good [Moles/volume] mmol/L [facility] in Serum or Hospital Plasma Potassium 4.4 3.5-5.1 [facility] - Good [Moles/volume] mmol/L [facility] in Serum or Hospital Plasma Chloride 106 98-107 [facility] - Good [Moles/volume] mmol/L [facility] in Serum or Hospital Plasma Carbon 22 21-32 [facility] - Good dioxide, total mmol/L [facility] [Moles/volume] Hospital in Serum or Plasma Anion gap in 12 10-20 [facility] - Good Serum or mmol/L [facility] Plasma Hospital Glucose 108 74-106 Above high normal [facility] - Good [Mass/volume] mg/dL [facility] in Serum or Hospital Plasma Urea nitrogen 16 mg/dL 7-18 [facility] - Good [Mass/volume] [facility] in Serum or Hospital Plasma Creatinine 1.05 0.70-1.3 [facility] - Good [Mass/volume] mg/dL 0 [facility] in Serum or Hospital Plasma Glomerular >60 [facility] - Good filtration [facility] rate/1.73 sq M Hospital predicted among blacks [Volume Rate/Area] in Serum or Plasma by Creatinine-bas ed formula (MDRD) Glomerular >60 [facility] - Good filtration [facility] rate/1.73 sq M Hospital predicted among non-blacks [Volume Rate/Area] in Serum or Plasma by Creatinine-bas ed formula (MDRD) (NOTE)Estimated GFR is calculated using the Modification of Diet in RenalDisease (MDRD) Study equation, reported for both Americans(GFRAA) and non- Americans (GFRNA), and normalized to 1.7 4q2pjng surface area. The physician must decide which [...] 8.5-10.1 [facility] - Good Serum or Plasma [facility] ital Bilirubin.total 0.7 mg/dL 0.2-1.0 [facility] - Good [Mass/volume] in Serum or [facility] Plasma Alanine aminotransferase 30 U/L 13-61 [facility] - Good [Enzymatic activity/volume] [facility] in Serum or Plasma Aspartate aminotransferase 27 U/L 15-37 BSC HS - Good [Enzymatic activity/volume] [facility] in Serum or Plasma by With P-5'-P Alkaline phosphatase 139 U/L 45-117 Above high [facility] - Good [Enzymatic activity/volume] normal [facility] in Serum or Plasma Protein [Mass/volume] in 7.6 g/dL 6.4-8.2 [facility] - Good Serum or Plasma [facility] ital Albumin [Mass/volume] in 3.9 g/dL 3.5-4.7 [facility] - Good Serum or Plasma by [facility] Bromocresol purple (BCP) dye binding method Globulin [Mass/volume] in 3.7 g/dL 1.7-4.7 [facility] - Good Serum by calculation [facility] Albumin/Globulin [Mass 1.0 0.7-2.8 [facility] - Good Ratio] in Serum or Plasma [facility] ID Date Data Source [id number] 10/29/2019 11:20:29 AM EDT [facility] Name Value Range Interpretation Description Data Sup porting Code Source(s) Document(s ) aPTT in 22.2 SEC 21.0-28. [facility] - Good Platelet poor 0 [facility] plasma by [facility] Coagulation assay Therapeutic Range = 42.0-60.0 secs ID Date Data Source [id number] 10/29/2019 11:20:29 AM [facility] Name Value Range Interpretation Description Data Sup porting Code Source(s) Document(s ) Prothrombin 10.3 sec 9.4-11.1 [facility] - Good time (PT) [facility] INR in 1.0 0.8-1.2 [facility] - Good Platelet poor [facility] plasma by [facility] Coagulation assay ID Date Data Source [id number] 10/29/2019 11:11:49 AM EDT [facility] Name Value Range Interpretation Description Data Sup porting Code Source(s) Document(s ) Leukocytes 8.1 K/uL 4.8-10.6 [facility] - [#/volume] in Good Blood by [facility] Automated [facility] Erythrocytes 5.52 4.70-6.0 [facility] - [#/volume] in M/uL [address] [facility] Hemoglobin 16.7 14.0-18. [facility] - [Mass/volume] in g/dL 0 Good Blood [facility] Hematocrit 51.8 % 42.0-52. [facility] - [Volume 0 Good Fraction] of [facility] Blood by [facility] Automated count Erythrocyte mean 93.8 FL 81.0-94. [facility] - corpuscular 0 Good volume [Entitic [facility] volume] by [facility] Automated count Erythrocyte mean 30.3 PG 27.0-35. [facility] - corpuscular 0 Good hemoglobin [facility] [Entitic mass] [facility] by Automated count Erythrocyte mean 32.2 30.7-37. [facility] - corpuscular g/dL 3 Good hemoglobin [facility] [Mass/volume] by Automated count Erythrocyte 13.2 % 11.5-14. [facility] - distribution 0 Good width [Ratio] by [facility] Platelets 193 K/uL 130-400 [facility] - [#/volume] in [facility] Blood by [facility] Automated count Hospital Platelet mean 8.6 FL 9.2-11.8 Below low normal [facility] - volume [Entitic Good volume] in Blood [facility] by Automated Hospital count Nucleated 0.0 PER 0 [facility] - erythrocytes/100 100 WBC Good leukocytes [facility] [Ratio] in Blood [facility] Nucleated 0.00 0.0-0.01 [facility] - erythrocytes K/uL Good [#/volume] in [facility] Segmented 79 % 48.0-72. Above high normal [facility] - neutrophils/100 0 Good leukocytes in [facility] Lymphocytes/100 10 % 18.0-40. Below low normal [facility] - leukocytes in 0 [facility] Monocytes/100 8 % 2.0-12.0 [facility] - leukocytes in [facility] Eosinophils/100 1 % 0.0-7.0 [facility] - leukocytes in [facility] Basophils/100 0 % 0.0-3.0 [facility] - leukocytes in [facility] Immature 1 % 0-0.5 Above high normal [facility] - granulocytes/100 Good leukocytes in [facility] by Hospital Automated count Segmented 6.4 K/UL 2.3-7.6 [facility] - neutrophils Good [#/volume] in [facility] Lymphocytes 0.8 K/UL 0.9-4.2 Below low normal [facility] - [#/volume] in [facility] Monocytes 0.7 K/UL 0.1-1.7 [facility] - [#/volume] in [facility] Eosinophils 0.1 K/UL 0.0-1.0 [facility] - [#/volume] in [facility] Basophils 0.0 K/UL 0.0-0.4 [facility] - [#/volume] in [facility] Immature 0.1 K/UL 0.0-0.17 [facility] - granulocytes Good [#/volume] in [facility] by Hospital Automated count Differential [facility] - cell count Good method [facility] ID Date Data Source [id number] 09/15/2019 09:44:01 AM EDT [facility] Clinical Indications/Reason For Exam: pa in.AP, [...] Supporting Document(s ) ID Date Data Source [id number] 09/15/2019 09:41:40 AM EDT [facility] THORACIC SPINE 4 views.History: Pain.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 Signing date/time: 09/15/2019 9:41 AMSigned by: CURTIS VARMA Name Value Range Interpretation Code Description Data Melani rce(s) Supporting Document(s ) ID Date Data Source [id number] 09/15/2019 09:40:53 AM EDT [facility] Clinical indications with reason for exa m: [...] Supporting Document(s ) ID Date Data Source [id number] 08/17/2019 08:25:20 AM EST [facility] History: Chest PainTechnique: Portable c hest x-ray 08/16/2019 9:40 PMComparison: 08/11/2019. FINDINGS: There is linear ate lectasis in the left lung base.No focal infiltrate or effusion is identified. Ev aluation of the cardiac silhouette is limited by projection.The visualized osseous str uctures appear unremarkable.IMPRESSION: No focal infiltrate or effusion Signing marlon e/time: 08/17/2019 8:25 AMSigned by: RAMANDEEP SANTAAN Name Value Range Interpretation Code Description Data Melani rce(s) Supporting Document(s ) ID Date Data Source [id number] 08/16/2019 11:12:22 PM [facility] The history is provided by the patient, the EMS personnel and the spouse.Anna Bray is a 49-year-old male who presen with EMS complaining of rash toface and shortness of breath. He was referred by outpatient urgent care centerfor evaluation. He arrived alert and verbal and in no d istress.Past Medical History:Diagnosis Date Other unknown and unspecified cause of m orbidity or mortality cardiac cath at [facility] approx 6-8 months ago Other [...] e Gets together: Not on file Attends anglican service: Not on file 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 [...] Calculation (Bezet) 429 ms Ca lculated P Rayle 36 degrees Calculated R Rayle 77 degrees Calculated T Rayle -24 degrees Diagnosis Sinus tachycardiaBorderline T abnormalities, [...] Time: 08/16/19 9:00 PMResult Value Ref Range [place] level 0.21 (L) 0.6 - 1.2 MMOL/LEKG: sinus tach ycardia, rate 109Radiology:CXR: no acute findings<EMERGENCY DEPARTMENT CASE [facility]>Impression/Differential Diagnosis: Allergic reaction allergic, drug reactio n,ACS, pulmonary embolismED Course: Patient presents short of breath and mildly tach ycardic complainingof new onset rash to face anterior chest and posterior chest.Plan: Labs, chest x-ray, EKG, troponin, d-dimer, prednisone, Pepcid, vpxqddccljy35:04 PM patient verbalizes relief of symptoms rash has faded. He denies chestpain he denie s shortness of breath.Patient was advised that we cannot rule out allergic drug re action as he isrecently just restarted taking his lithium. Patient advised to discuss takinglithium with his psychiatrist as soon as possible.Patient reassessed at [facility] by me. Feels better at present, wants to go home.Patient was told to follow up with the primary doctor in 1-2 days and [facility] for any worsening severe pain, vomiting, fever, or any other concerns.Family/friend was present for t he conversation. Patient and family membersverbalized understanding of the d ischarge instructions and had no furtherquestions at this time.Final Impr ession/Diagnosis:Encounter Diagnoses ICD-10-CM ICD-9-CM1. Allergic reaction, initial encounter T78.40XA 995.32. Allergic reaction to drug, initial encounter T78. 40XA 995.27Patient condition at time of disposition: stableI have reviewed the [facility] medications:Prior to Admission medicationsMedication Sig Start Date End Date Taking? Authorizing ProviderbuPROPion XL (WELLBUTRIN XL) 300 mg XL tablet Take 300 mg by mouth everymorning. Yes Other, Phys, MDlithium carbonate 150 mg capsule Take 300 mg by mouth three (3) times daily.Yes Other, Phys, MDpredniSONE (DEL TASONE) 50 mg tablet Take 1 [...] tablet Take 2 mg by mouth daily. Paul Escalante MDfluoxetine HCl (PROZAC PO) Take 60 mg by mouth daily. Suzette, Hodan Miller NPI was personally available for consultation in the emerge ncy department. I havereviewed the chart and agree with the documentation recorded by the MLP,including the assessment, treatment plan, and disposition.Mayank Troy MD Name Value Range Interpretation Code Description Data Melani rce(s) Supporting Document(s ) ID Date Data Source [id number] 08/16/2019 10:46:05 PM EST [facility] [id number] [facility] EMERGENCY DEPARTMENT [address] [place] [id number] [phone] Anna Bray (Male) [id number] I 3 ED Dispo:DISCHARGE Chief Complaint: Allergic Reaction Diagnosis: Allergic reaction, initial encounter [] Allergic reaction to drug, in itial encounter [] Current Providers: Attending: Javier Quezada Nurse Practitioner: Javier Ward Primary Nurse: LUCILLE Acuña: [phone] [employer] [phone] - [facility] MrnMRN: [id number] [employer] [phone] - [facility] Age Sex 1970 AGE 49 SEX Male Primary Care Provider: Ritika Canas MD Ibgfxfqzp: (No Known Allergies)Date Reviewed: 08/16/2019Reviewed by: Zahraa Prince RN - Review CompleteED Provider Notes: No not es of this type exist for this encounter.ED Orders BUPROPION XL 300 MG 24 HR TAB [#[id number]] Priority: Routine Class: Historical Med LITHIUM CARBONATE 150 MG CAP [#[id number]] Priority: Routine Class: Historical Med FAMOTIDINE 20MG + NS 10 ML IV [#[id number]] Priority: STAT Class: Normal H2RA INDICATION -> Adverse reaction/Anaphylaxis SODIUM CH LORIDE 0.9 % IV [#[id number]] Priority: STAT Class: Normal METHYLPREDNISOLONE (PF) 125 MG/2 ML * [#[id number]] Priority: STAT Class: Normal ASPIRIN 81 MG CHEWABLE TAB [# [id number]] Priority: STAT Class: Normal PREDNISONE 50 MG TAB [#[id number]] Bridgette ority: Routine Class: Normal [id number] DIRECTOR [facility] - ED ONLY [#[id number]] Priority: STAT C lass: Hospital Performed Standing Order Information Remaining Occurrences:0/1 Interval:Contin uous Last released:08/16/2019 Released orders: Sat Aug 16, 2019 9:02 PM by: Javier POLLOCK Type: -> Bedside [id number] OBTAIN OLD EKG [#[id number]] Priority: Routi ne Class: Hospital Performed Standing Order Information Remaining Occurrences:0/1 Inter haile:ONE TIME Last released:08/16/2019 Released orders: Sat Aug 16, 2019 9:02 PM by: INDIO WARD [id number] PULSE OXIMETRY CONTINUOUS [#[id number]] Priority: STAT Class: H ospital Performed Standing Order Information Remaining Occurrences:0/1 Interval:CONTIN UOUS Last released:08/16/2019 Released orders: Sat Aug 16, 2019 9:02 PM by: Javier POLLOCK [id number] DIRECTOR [facility] - ED ONLY [#[id number]] Priority: STAT Class: Hospital Perfo rmed Type: -> Bedside Released on: 08/16/2019 9:02 PM [id number] OBTAIN OLD EKG [#[id number]] Priority: STAT Class: Hospital Performed Released on: 08/16/2019 9:02 PM [id number] PULSE OXIMETRY CONTINUOUS [#[id number]] Priority: STAT Class: Hospital Performed Relea sed on: 08/16/2019 9:02 PM [id number] DIET NPO [#[id number]] Priority: STAT Cla ss: Hospital Performed Standing Order Information Remaining Occurrences:0/1 Interval:DIET E FFECTIVE NOW Last released:08/16/2019 Released orders: Sat Aug 16, 2019 9:02 PM by: INDIO WARD NPO options: -> With Meds [id number] DIET NPO [#[id number]] Priority: STAT Class: Hospital Performed NPO options: -> With Meds Released on: 08/16/2019 9:02 PM [id number] SALINE LOCK IV [#[id number]] Priority: STAT Class: Hospital Performe d Standing Order Information Remaining Occurrences:0/1 Interval:ONE TIME Last released: 08/16/2019 Released orders: Sat Aug 16, 2019 9:02 PM by: INDIO POLLOCK [id number] SALIN E LOCK IV [#[id number]] Priority: STAT Class: Hospital Performed Released on : 08/16/2019 9:02 PM [id number] METABOLIC PANEL, COMPREHENSIVE [#[id number]] Priority: STAT Class: E R Collect Standing Order Information Remaining Occurrences:0/1 Interval:ONE TIME Last r eleased:08/16/2019 Released orders: Sat Aug 16, 2019 9:02 PM by: INDIO POLLOCK [id number] CBC WITH AUTOMATED DIFF [#[id number]] Priority: STAT Class: ER Collect Standing Order Info rmation Remaining Occurrences:0/1 Interval:ONE TIME Last released:08/16/2019 Released orders: Sat Aug 16, 2019 9:02 PM by: INDIO POLLOCK [id number] TROPONIN I [#[id number]] Priority: STAT Class: ER Collect Standing Order Information Remaining Occurre nces:0/1 Interval:ONE TIME Last released:08/16/2019 Released orders: Sat Aug 16 9:02 PM by: INDIO POLLOCK [id number] MAGNESIUM [#[id number]] Priorit y: STAT Class: ER Collect Standing Order Information Remaining Occurrences:0/1 Inter haile:ONE TIME Last released:08/16/2019 Released orders: Sat Aug 16, 2019 9:02 PM by: INDIO WARD [id number] D DIMER [#[id number]] Priority: STAT Class: E R Collect Standing Order Information Remaining Occurrences:0/1 Interval:ONE TIME Last r eleased:08/16/2019 Released orders: Sat Aug 16, 2019 9:02 PM by: INDIO POLLOCK [id number] METABOLIC PANEL, COMPREHENSIVE [#[id number]] Priority: STAT Class: ER Collect Specimen Source: Plas ma Specimen Collected: 08/16/2019 9:00 PM Resulting Agency: [facility] Test ID: MPL Released on: 08/16/2019 9:02 PM [id number] CBC WITH AUTOMATED DIFF [#[id number]] Prior ity: STAT Class: ER Collect Specimen Source: Whole Blood Specimen Collected: 08/16/2019 9:00 PM Resultin g Agency: [facility] Test ID: [id number] Released on: 08/16/2019 9:02 PM [id number] TROPONIN I [#[id number]] Priority: STAT Class: ER Collect Specimen Source : Plasma Specimen Collected: 08/16/2019 9:00 PM Resulting Agency: [facility] Test ID: TROIP Released on: 08/16/2019 9:02 PM [id number] MAGNESIUM [#[id number]] Priority: STAT Class: ER Collect Specimen Source: Plasma Specimen Collected: 08/16/2019 9:00 PM Resultin g Agency: [facility] Test ID: [id number] Released on: 08/16/2019 9:02 PM [id number] 4 D DIMER [#[id number]] Priority: STAT Class: ER Collect Specimen Source : Plasma Specimen Collected: 08/16/2019 9:00 PM Resulting Agency: [facility] Test ID: [id number] Released on: 08/16/2019 9:02 PM [id number] LITHIUM [#[id number]] Priority: STAT Class: ER Collect Standing Order Information Remaining Occurrences:0/1 Inter haile:ONE TIME Last released:08/16/2019 Released orders: Sat Aug 16, 2019 9:02 PM by: INDIO WARD [id number] LITHIUM [#[id number]] Priority: STAT Class: E R Collect Specimen Source: Serum Specimen Collected: 08/16/2019 9:00 PM Resulting Agency: [facility] Test ID: LI Released on: 08/16/2019 9:02 PM [id number] EKG, 12 LEAD, INITIAL [#[id number]] Priority: STAT Class: Hospital Performed Standing Order Information Remainin g Occurrences:0/1 Interval:ONE TIME Last released:08/16/2019 Released orders : Sat Aug 16, 2019 9:02 PM by: INDIO POLLOCK Reason for Exam: -> Chest Pain [id number] EKG, 12 LEAD, INITIAL [#[id number]] Priority: STAT Class: Hospital Performed Resulting Age ncy: GSH MUSE Test ID: [id number] Reason for Exam: -> Chest Pain Released on: 08/16/2019 9:02 PM [id number] XR CHEST PORT [#[id number]] Priority: STAT Class: Hospital Performed Stand ing Order Information Remaining Occurrences:0/1 Interval:ONE TIME Last released:0 08/16/2019 Released orders: Sat Aug 16, 2019 9:02 PM by: INDIO POLLOCK Reason for Exam -> Chest Pain [id number] XR CHEST PORT [#[id number]] Priority: STAT Class: H ospital Performed Resulting Agency: [facility] Test ID: [id number] Reason for Exam -> Chest Pain Rele ased on: 08/16/2019 9:02 JORDYAnna waddell MR#: [id number] * Rm: [id number] Ht: 5' 10" Wt: 280 lb Code: Prior Iso:Diagnosis:Allergies: No Known Allergies -------- Current as of: 08/16/192245 GI=Given IC=IV Complet ed NB=New Bag --aspirin (ASPIRIN) tablet 325 mg #[id number] Admin Amount: 1 Tab (1 x 325 mg Tab) Ordered Dose: 325 mg Route: Oral Freq: ONCE Start Date: 12/24/13 No administration times (back 96 hours, ahead 96 hours). ------diphenhydrAMINE (BENADRYL) capsule 50 mg #[id number] Admin Amount: 1 Cap (1 x 50 mg Cap) Ordered Dose: 50 mg Route: Ora l Freq: NOW Start Date: 12/24/13 No administration times (back 96 hours, ahe ad 96 hours). ------diazepam (VALIUM) tablet 5 mg #[id number] Admin Amount: 1 Tab (1 x 5 mg Tab) Ordered Dose: 5 mg Route: Oral Freq: ON CE Start Date: 12/24/13 No administration times (back 96 hours, ahead 96 hours). ------lidocaine (XYLOCAINE) 10 mg/mL (1 %) injection 1-30 mL #[id number] Admin Amount: 1-30 mL Ordered Dose: 1-30 mL Route: IntraDERMal Freq: ONCE Start Date: 12/24/13 No administration times (back 96 hours, ahead 96 hours). ------heparin (PF) 2 units/ml in NS infusion 2,000 Units #[id number] Admin Amount: 1,000 mL = 2,000 Units of 2 Units/mL Ordered Dose: 1,000 mL [place] band: Irrigation Freq: ONCE Start Date: 12/24/13 No administration times (back 96 hours, ahead 96 hours). ------heparinized saline 2 units/mL infusion 1,000 Units #[id number] Admin Amount: 500 mL = 1,000 Units of 2 Units/mL Ordered Dose: 500 mL [place] band: IntraarTERial Freq: ONCE Start Date: 12/24/13 No administration times (back 96 hours, ahead 96 hours). ------0.9% sodium chloride infusion #[id number] Ordered Dose: 75 mL/hr Route: IntraVENous Freq: CONTINUOUS Start Date: 12/24/13 Rate: 75 mL/hr Duration: No administration times (back 96 hours, ahead 96 hours). ------ioversol (OPTIRAY) 320 mg iodine/mL contrast injection 1-100 mL #[id number] Admin Amount: 1-100 mL Ordered Dose: 1-100 mL Route: IntraVENous Freq: RAD O NCE Start Date: 12/24/13 No administration times (back 96 hours, ahead 96 hours).Anna Bray MR#: [id number] * Rm: [id number]: 5' 10" Wt: 280 lb Co de: Prior Iso:Diagnosis:Allergies: No Known Allergies -------- Current as of: 08/16/192245 GI=Given IC=IV Complet ed NB=New Bag --gadobutrol (GADAVIST) contrast solution 1-10 mL #[id number] Admin Amount: 1-10 mL Ordered Dose: 1-10 mL Route: IntraVENous Freq: RAD O NCE Start Date: 01/13/14 No administration times (back 96 hours, ahead 96 hours). ------sodium chloride (NS) flush 5-10 mL #[id number] Admin Amount: 5-10 mL Ordered Dose: 5-10 mL Route: IntraVENous Freq: RAD ONCE Start Date: 01/13/14 No administration times (back 96 hours, ahead 96 hours). ------sodium chloride (NS) 0.9 % flush #[id number] Ordered Dose: Route: Freq: Start Date: 01/13 No administration times (back 96 hours, ahead 96 hours). ------morphine injection 2 mg #[id number] Admin Amount: 1 mL = 2 mg of 2 mg/mL Ordered Dose: 2 mg Route: IntraVENous Freq: NOW Start Date: 03/13/15 No administration times (back 96 hours, ahe ad 96 hours). ------influenza vaccine (4 yr+)(PF) (FLUCELVAX QUAD) inj ection 0.5*#[id number] Admin Amount: 0.5 mL Ordered Dose: 0.5 mL Route: IntraMUSCular Freq: PRIOR TO DISCHARGE Start Date: 03/30/16 No administration times (back 96 hours, ahead 96 hours). ------oxyCODONE-acetaminophen (PERCOCET) 5-325 mg per tablet 1 Tab #[id number] Admin Amount: 1 Tab Ordered Dose: 1 Tab Route: Oral Freq: NOW Start Date: 09/07/17 No administration times (back 96 hours, ahead 96 hours). ------barium sulfate (READICAT) 2.1 % (w/v), 2.0 % (w /w) oral suspension 9*#[id number] Admin Amount: 900 mL Ordered Dose: 900 mL Route: Oral Delgado q: RAD ONCE Start Date: 10/15/17 No administration times (back 96 hours, ahead 96 hours). ------iopamidol (ISOVUE 300) 61 % contrast injection 100 mL #[id number] Admin Amount: 100 mL Ordered Dose: 100 mL Route: IntraVENous Freq: RAD ONC E Start Date: 10/15/17 No administration times (back 96 hours, ahead 96 hours).Anna Bray MR#: [id number] * Rm: [id number]: 5' 10" Wt: 280 lb Code: Prior Iso:Diagnosis:Allergies: No Known Allergies -------- Current as of: 08/16/192245 GI=Given IC=IV Complet ed NB=New Bag --risperiDONE (RisperDAL m-tabs) disintegrating tablet 1 mg #[id number] Admin Amount: 1 Tab (1 x 1 mg Tab) Ordered Dose: 1 mg Route: Oral Freq: ONCE Start Date: 12/24/17 No administration times (back 96 hours, ahead 96 hours). ------ALPRAZolam (XANAX) tablet 2 mg #[id number] Admin Amount: 4 Tab (4 x 0.5 mg Tab) Ordered Dose: 2 mg Route: Ora l Freq: NOW Start Date: 12/24/17 No administration times (back 96 hours, ahe ad 96 hours). ------lamoTRIgine (LaMICtal) tablet 100 mg #[id number] Admin Amount: 1 Tab (1 x 100 mg Tab) Ordered Dose: 100 mg Route: Oral Delgado q: ONCE Start Date: 12/24/17 No administration times (back 96 hours, ahead 96 hours). ------OLANZapine (ZyPREXA zydis) disintegrating tablet 5 mg #[id number] Admin Amount: 1 Tab (1 x 5 mg Tab) Ordered Dose: 5 mg Route: Oral Delgado q: ONCE Start Date: 12/25/17 No administration times (back 96 hours, ahead 96 hours). ------LORazepam (ATIVAN) tablet 2 mg #[id number] Admin Amount: 4 Tab (4 x 0.5 mg Tab) Ordered Dose: 2 mg Route: Ora l Freq: NOW Start Date: 12/25/17 No administration times (back 96 hours, ahe ad 96 hours). ------LORazepam (ATIVAN) injection 1 mg #[id number] Admin Amount: 0.5 mL = 1 mg of 2 mg/mL Ordered Dose: 1 mg Route: Edy Pandey Freq: NOW Start Date: 12/25/17 No administration times (back 96 hours, e ad 96 hours). ------barium sulfate (EZ PAQUE) 96 % (w/w) contrast suspension 17 6 g #[id number] Admin Amount: 176 g Ordered Dose: 176 g Route: Oral Freq: RAD ONCE Start Date: 08/02/18 No administration times (back 96 hours, ahead 96 hours). ------barium sulfate (EZ PAQUE) 96 % (w/w) contrast s uspension 176 g #[id number] Admin Amount: 176 g Ordered Dose: 176 g Route: Oral Delgado q: RAD ONCE Start Date: 08/02/18 No administration times (back 96 hours, ahead 96 hours).Anna Ritter MR#: [id number] * Rm: [id number]: 5' 10" Wt: 280 lb Co de: Prior Iso:Diagnosis:Allergies: No Known Allergies -------- Current as of: 08/16/192245 GI=Given IC=IV Complet ed NB=New Bag --aspirin chewable tablet 162 mg #[id number] Admin Amount: 2 Tab (2 x 81 mg Tab) Ordered Dose: 162 mg Route: Oral Freq: NOW Start Date: 08/10/19 No administration times (back 96 hours, ahead 96 hours). ------famotidine (PF) (PEPCID) 20 mg in 0.9% sodium chloride 10 mL inje cti*#[id number] Admin Amount: 20 mg Ordered Dose: 20 mg Route: IntraVENous Freq: EVERY 12 H OURS Start Date: 08/16/19 Administration times (back 96 hours, ahead 96 hours): 08/16/19: 2119G I 08/17/19: 89908/18/19: 89908/19/19: 89908/20/19: 899 2099 ---0.9% sodium chloride infusion 1,000 mL #[id number] Admin Amount: 1,000 mL Ordered Dose: 1,000 mL Route: IntraVENous Freq: ONC E Start Date: 08/16/19 Rate: 1,000 mL/hr Duration: Administration times (back 96 hours, ahead 96 hours): 08/16/19: 2119NB 2245IC -----methylPREDNISolone (PF) (Solu-MEDROL) injection 125 mg #[id number] Admin Amount: 2 mL = 125 mg of 125 mg/2 mL Ordered Dose: 125 mg Route: Int raVENous Freq: NOW Start Date: 08/16/19 Administration times (back 96 hours, ahe ad 96 hours): 08/16/19: 2119GI -----aspirin chewable tablet 162 mg #[id number] Admin Amount: 2 Tab (2 x 81 mg Tab) Ordered Dose: 162 mg Route: Oral Delgado q: NOW Start Date: 08/16/19 Administration times (back 96 hours, ahead 96 hours): 08/16/19: 9GI ED Current OP MedicationsbuPROPion XL (WELLBUTRIN XL) 300 mg XL tabletSig:Take 300 mg by mouth every morning.Dispense Amount:Start Date:End Date:Doc. Provider : Paul Bradford MDlithium carbonate 150 mg capsuleSig:Take 300 mg by mouth three (3) times daily.Dispense [place] unt:Start Date:End Date:Doc. Provider: Paul Bradford MDpredniSONE [...] mouth daily.Dispense Amount:Start Date:End Date:Doc. Provider : Suzette, MD Paul ED PrescriptionspredniSONE (DELTASONE) 50 m g tabletSig:Take 1 Tab by mouth daily for 3 days.Dispense Amount:3 TabStart Date:08/16/2019End Date: 0Auth. Provider: Indio Pollock, NPFollow-up InformationFollow-up With:Ritika Canas M DDetails:In 2 daysComments:Contact Info:[address] [id number]-up With:[facility] DEPARTMENTDetails:Comments:As needed, If symptoms worsenContact Info:[address] [facility] [id number] Name Value Range Interpretation Code Description Data Melani rce(s) Supporting Document(s ) ID Date Data Source [id number] 08/16/2019 10:45:45 PM [facility] IV site clean/dry/intact, gauze dressing applied. Pt received written and verbaldischarge instructions. Verbalize d understanding of same. Ambulated out of EDwith steady gait and in no distress. Name Value Range Interpretation Code Description Data Melani rce(s) Supporting Document(s ) ID Date Data Source [id number] 08/16/2019 09:58:14 PM [facility] Name Value Range Interpretation Description Data Sup porting Code Source(s) Document(s ) [place] 0.21 0.6-1.2 Below low normal [facility] [Moles/volu MMOL/L [facility]] in Hospital Serum or Plasma ID Date Data Source [id number] 08/16/2019 09:52:19 PM [facility] Name Value Range Interpretation Code Description Data Melani rce(s) Supporting Document(s ) Fibrin <500 [facility] D-dimer [facility] [Mass/volume] [facility] in Platelet poor plasma (NOTE)Combination of a D-Dimer result wi thin the reference range and a lowclinical pretest probability has good negative pr edictive value fordeep venous thrombosis.If results are utilized for VTE evaluation, <500 ng/ml is consideredto be negative. ID Date Data Source [id number] 08/16/2019 09:44:39 PM EST [facility] Name Value Range Interpretation Description Data Sup porting Code Source(s) Document(s ) Troponin 0.00-0.05 [facility] I.cardiac [facility] [Mass/volume Hospital ] in Serum or Plasma [...] to 1.50 ng/mL ID Date Data Source [id number] 08/16/2019 09:44:39 PM [facility] Name Value Range Interpretation Description Data Sup porting Code Source(s) Document(s ) Sodium 138 136-145 [facility] [Moles/volume] mmol/L [facility] in Serum or Hospital Plasma Potassium 3.4 3.5-5.1 Below low normal [facility] [Moles/volume] mmol/L [facility] in Serum or Hospital Plasma Chloride 108 98-107 Above high normal [facility] [Moles/volume] mmol/L [facility] in Serum or Hospital Plasma Carbon 20 21-32 Below low normal [facility] dioxide, total mmol/L [facility] [Moles/volume] Hospital in Serum or Plasma Anion gap in 14 10-20 [facility] Serum or mmol/L [facility] Plasma Hospital Glucose 105 74-106 [facility] [Mass/volume] mg/dL [facility] in Serum or Hospital Plasma Urea nitrogen 20 mg/dL 7-18 Above high normal [facility] [Mass/volume] [facility] in Serum or Hospital Plasma Creatinine 0.90 0.70-1.3 [facility] [Mass/volume] mg/dL 0 [facility] in Serum or Hospital Plasma Glomerular >60 [facility] filtration [facility] rate/1.73 sq M Hospital predicted among blacks [Volume Rate/Area] in Serum or Plasma by Creatinine-bas ed formula (MDRD) Glomerular >60 [facility] filtration [facility] rate/1.73 sq M Hospital predicted among non-blacks [Volume Rate/Area] in Serum or Plasma by Creatinine-bas ed formula (MDRD) (NOTE)Estimated GFR is calculated using the Modification of Diet in RenalDisease (MDRD) Study equation, reported for both Americans(GFRAA) and non- Americans (GFRNA), and normalized to 1.7 4c4ejux surface area. The physician must decide which [...] normal [facility] Serum or Plasma [facility] H[facility] ital Bilirubin.total 0.3 mg/dL 0.2-1.0 [facility] [Mass/volume] in Serum or [facility] Plasma Alanine aminotransferase 37 U/L 13-61 [facility] [Enzymatic activity/volume] [facility] in Serum or Plasma Aspartate aminotransferase 22 U/L 15-37 [facility] - Good [Enzymatic activity/volume] [facility] in Serum or Plasma by With P-5'-P Alkaline phosphatase 98 U/L 45-117 [facility] ood [Enzymatic activity/volume] [facility] in Serum or Plasma Protein [Mass/volume] in 7.0 g/dL 6.4-8.2 [facility] Serum or Plasma [facility] Albumin [Mass/volume] in 3.7 g/dL 3.5-4.7 [facility] Serum or Plasma by [facility] ospital Bromocresol purple (BCP) dye binding method Globulin [Mass/volume] in 3.3 g/dL 1.7-4.7 [facility] Serum by calculation [facility] Albumin/Globulin [Mass 1.1 0.7-2.8 [facility] Ratio] in Serum or Plasma [facility] ID Date Data Source [id number] 08/16/2019 09:44:39 PM EST [facility] Name Value Range Interpretation Description Data Sup porting Code Source(s) Document(s ) Magnesium 2.3 mg/dL 1.6-2.6 [facility] [Mass/volume] [facility] in Serum or Hospital Plasma ID Date Data Source [id number] 08/16/2019 09:23:23 PM EST [facility] Name Value Range Interpretation Description Data Sup porting Code Source(s) Document(s ) Leukocytes 7.6 K/uL 4.8-10.6 [facility] - [#/volume] in Good Blood by [facility] Automated count Hospital Erythrocytes 4.97 4.70-6.0 [facility] - [#/volume] in M/uL 0 Good Blood by [facility] Automated count Hospital Hemoglobin 15.2 14.0-18. [facility] - [Mass/volume] in g/dL 0 Good Blood [facility] Hematocrit 45.0 % 42.0-52. [facility] - [Volume 0 Good Fraction] of [facility] Blood by Hospital Automated count Erythrocyte mean 90.5 FL 81.0-94. [facility] - corpuscular 0 Good volume [Entitic [facility] volume] by Hospital Automated count Erythrocyte mean 30.6 PG 27.0-35. [facility] - corpuscular 0 Good hemoglobin [facility] [Entitic mass] Hospital by Automated count Erythrocyte mean 33.8 30.7-37. [facility] - corpuscular g/dL 3 Good hemoglobin [facility] [Mass/volume] by Automated count Erythrocyte 13.0 % 11.5-14. [facility] - distribution 0 Good width [Ratio] by [facility] Automated count Hospital Platelets 183 K/uL 130-400 [facility] - [#/volume] in Good Blood by [facility] Automated count [facility] Platelet mean 8.5 FL 9.2-11.8 Below low normal [facility] - volume [Entitic Good volume] in Blood [facility] by Automated Hospital count Nucleated 0.0 PER 0 [facility] - erythrocytes/100 100 WBC Good leukocytes [facility] [Ratio] in Blood [facility] Nucleated 0.00 0.0-0.01 [facility] - erythrocytes K/uL Good [#/volume] in [facility] Segmented 68 % 48.0-72. [facility] - neutrophils/100 0 Good leukocytes in [facility] Lymphocytes/100 19 % 18.0-40. [facility] - leukocytes in 0 [facility] Monocytes/100 7 % 2.0-12.0 [facility] - leukocytes in [facility] Eosinophils/100 5 % 0.0-7.0 [facility] - leukocytes in [facility] Basophils/100 1 % 0.0-3.0 [facility] - leukocytes in [facility] Immature 1 % 0-0.5 Above high normal [facility] - granulocytes/100 Good leukocytes in [facility] Automated count Segmented 5.2 K/UL 2.3-7.6 [facility] - neutrophils Good [#/volume] in [facility] Lymphocytes 1.5 K/UL 0.9-4.2 [facility] - [#/volume] in [facility] Monocytes 0.6 K/UL 0.1-1.7 [facility] - [#/volume] in [facility] Eosinophils 0.3 K/UL 0.0-1.0 [facility] - [#/volume] in [facility] Basophils 0.0 K/UL 0.0-0.4 [facility] - [#/volume] in [facility] Immature 0.0 K/UL 0.0-0.17 [facility] - granulocytes Good [#/volume] in [facility] Automated count Differential [facility] - cell count [facility] ID Date Data Source [id number] 08/16/2019 08:50:30 PM EST [facility] - [facility] sudden onset of difficulty breathing and rash while eating malawian food, rashacross face and chest slightly raised, no vesicles, denies any chest pain deniesany itching at this time. Went to urgent care, recei nataliia benadryl 50 mg IMfrom EMS. Name Value Range Interpretation Code Description Data Melani rce(s) Supporting Document(s ) ID Date Data Source [id number] 08/11/2019 08:03:02 AM EST [facility] History:Chest pain. Shortness of breath. FINDINGS:A [...] Value Range Interpretation Code Description Data [facility](s) Supporting Document(s ) ID Date Data Source [id number] 08/11/2019 04:22:14 AM [facility] The history is provided by the patient a nd the spouse.11:36 PM: Anna Bray is a 49 y.o. male with [...] of morbidity or mortality cardiac cath at [facility] approx 6-8 months ag o Other unknown [...] e Gets together: Not on file Attends anglican service: Not on file 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 [...] 5' 10" (1.778 m)12:16 AM Pulse Oximetry ivis siegel is 100% on room air, which [...] QTC Calculation (Bezet) 435 ms Calculated P Ray[place] 55 degrees Calculated R [place] 34 degrees Calculated T Rayle 9 degrees Diagnosis S inus tachycardiaOtherwise normal [...] Time: 08/11/19 12:01 AMResult Value Ref Range [place] level <0.20 (L) 0.6 - 1.2 MMOL/LLACTIC [...] TIMES A DAYFOR 10 DAYS 07/17/18 Provide rDaniloclonazePAM (KLONOPIN) 2 mg tablet Take 2 mg by mouth two (2) times a day.Other, MD Paulfluoxetine HCl (PROZAC PO) Take 60 mg by mouth daily. Suzette, Zoe Miller Priti V, MD I, Rachel Stone, am serving as a scribe to document [...] Data Source [id number] 08/11/2019 01:42:54 AM EST [facility] - [facility] [id number] [facility] EMERGENCY DEPARTMENT [address] [facility] [address] [phone]/ [place] Anna mcleod (Male) [id number] JOSE 2 ED Dispo:DISCHARGE Chief Complaint: Chest Pain, Shortne ss of Breath Diagnosis: Dyspnea, unspecified type [] Current Providers: Attpao nding: Javier Quezada Primary Nurse: ELIS WilsonN: [id number] Print [employer] p [id number] [facility] MrnMRN: [id number] Print Group [phone] - [facility] Age SexDOB 1970 AGE 49 SEX Male Primary Care Provider: Ritika Canas MD Phone: 1 [phone]: (No Known Allergies)Date Reviewed: 08/10/2019Reviewed by: Chiquis Christianson CompleteED Provider Notes: No notes of this type exist for this encounter.ED Orders [id number] E KG, 12 LEAD, INITIAL [#[id number]] Priority: STAT Class: Hospital Performed Stand ing Order Information Remaining Occurrences:0/1 Interval:ONE TIME Last released:0 08/10/2019 Released orders: Sun Aug 10, 2019 10:17 PM by: CHIQUIS CHRISTIANSON Reason for Exam: -> CP SOB [id number] EKG, 12 LEAD, INITIAL [#[id number]] Priority: STAT Class: Hospital Performed Specimen Collected: 08/10/2019 10:14 PM Resulting Agency: [facility] MUSE Test ID: [id number] Reason for Exam: -> CP SOB Released on: 08/10/2019 10:17 PM [id number] EKG, 12 LE AD, INITIAL [#[id number]] Priority: STAT Class: Hospital Performed Standing Or mariano Information Remaining Occurrences:0/1 Interval:ONE TIME Last released:0 08/10/2019 Released orders: Sun Aug 10, 2019 11:51 PM by: MAYANK QUEZADA V Reason fo r Exam: -> Chest Pain [id number] EKG, 12 LEAD, INITIAL [#[id number]] Priority: STAT C lass: Hospital Performed Resulting Agency: [facility] Test ID: [id number] Reason for Exam: -> Chest P ain Released on: 08/10/2019 11:51 PM [id number] DIRECTOR [facility] - ED ONLY [#[id number]] Priority: STAT Class: Hospital Performed Standing Order Information Remaining Occurre nces:0/1 Interval:Continuous Last released:08/10/2019 Released orders : [place] Aug 10, 2019 11:51 PM by: MAYANK QUEZADA V Type: -> Bedside [id number] PULSE OXIMETR Y CONTINUOUS [#[id number]] Priority: STAT Class: Hospital Performed Standing Or mariano Information Remaining Occurrences:0/1 Interval:CONTINUOUS Last released :08/10/2019 Released orders: [place] Aug 10, 2019 11:51 PM by: MAYANK QUEZADA V [id number] PULSE OXIMETRY SPOT CHECK [#[id number]] Priority: STAT Class: Hospital Performe d Standing Order Information Remaining Occurrences:0/1 Interval:ONE TIME Last r eleased:08/10/2019 Released orders: [place] Aug 10, 2019 11:51 PM by: MAYANK QUEZADA V [id number] [id number] OBTAIN OLD EKG [#[id number]] Priority: Routine Class: Hospital Perfo rmed Standing Order Information Remaining Occurrences:0/1 Interval:ONE TI ME Last released:08/10/2019 Released orders: [place] Aug 10, 2019 11:51 PM by: MAYANK QUEZADA V [id number] DIRECTOR [facility] - ED ONLY [#[id number]] Priority: STAT Class: H ospital Performed Type: -> Bedside Released on: 08/10/2019 11:51 PM [id number] PULSE OXIM ETRY CONTINUOUS [#[id number]] Priority: STAT Class: Hospital Performed Released on : 08/10/2019 11:51 PM [id number] PULSE OXIMETRY SPOT CHECK [#[id number]] Priority: STAT C lass: Hospital Performed Released on: 08/10/2019 11:51 PM [id number] OBTAIN OLD EKG [#[id number]] Priority: STAT Class: Hospital Performed Released on: 08/10/2019 11: 51 PM [id number] RT--OXYGEN CANNULA [#[id number]] Priority: STAT Class: H ospital Performed Standing Order Information Remaining Occurrences:0/1 Interval:CONTIN UOUS Last released:08/10/2019 Released orders: [place] Aug 10, 2019 11:51 PM by: MAYANK PRADO V Comment:TITRATE UP TO 4 L / MINUTE TO MAINTAIN O2 SATS GREATER THAN OR EQUAL TO 94% LPM -> 2 Indications for O2? -> CHEST PAIN [id number] RT--OXYGEN CANNULA [#[id number]] Priority: STAT Class: Hospital Performed Comment:TITRATE UP TO 4 L / MINUTE TO MAINTAIN O2 SATS GREATER THAN OR EQUAL TO 94% LPM -> 2 Indications fo r O2? -> CHEST PAIN Released on: 08/10/2019 11:51 PM [id number] DIET NPO [#[id number]] Priority: STAT Class: Hospital Performed Standing Order Information Remaining Occurrences:0/1 Interval:DIET EFFECTIVE NOW Last released:08/10 Released orders: [place] Aug 10, 2019 11:51 PM by: MAYANK QUEZADA V NPO options: - > With Meds [id number] DIET NPO [#[id number]] Priority: STAT Class: H ospital Performed NPO options: -> With Meds Released on: 08/10/2019 11:51 PM [id number] SALINE LOCK IV [#[id number]] Priority: STAT Class: Hospital Performed Standing O rder Information Remaining Occurrences:0/1 Interval:ONE TIME Last released:0 08/10/2019 Released orders: [place] Aug 10, 2019 11:51 PM by: MAYANK QUEZADA V [id number] SALI NE LOCK IV [#[id number]] Priority: STAT Class: Hospital Performed Relea sed on: 08/10/2019 11:51 PM [id number] METABOLIC PANEL, COMPREHENSIVE [#[id number]] Bridgette ority: STAT Class: ER Collect Standing Order Information Remaining Occurrences:0/1 In terval:ONE TIME Last released:08/10/2019 Released orders: [place] Aug 10, 2019 11:51 PM by: MAYANK QUEZADA V [id number] CBC WITH AUTOMATED DIFF [#[id number]] Priority: STAT Class: ER Collect Standing Order Information Remaining Occurrences:0/1 Inter haile:ONE TIME Last released:08/10/2019 Released orders: [place] Aug 10, 2019 11:51 PM by: MAYANK QUEZADA V [id number] TROPONIN I [#[id number]] Priority: STAT Class: ER Collect Standing Order Information Remaining Occurrences:0/1 Inter haile:ONE TIME Last released:08/10/2019 Released orders: [place] Aug 10, 2019 11:51 PM by: MAYANK QUEZADA V [id number] MAGNESIUM [#[id number]] Priority: STAT Class: ER Collect Standing Order Information Remaining Occurrences:0/1 Inter haile:ONE TIME Last released:08/10/2019 Released orders: [place] Aug 10, 2019 11:51 PM by: MAYANK QUEZADA V [id number] BNP [#[id number]] Priority: STAT Class: ER Collect Standing Order Information Remaining Occurrences:0/1 Inter haile:ONE TIME Last released:08/10/2019 Released orders: [place] Aug 10, 2019 11:51 PM by: MAYANK QUEZADA V [id number] D DIMER [#[id number]] Priority: STAT Class: ER Collect Standing Order Information Remaining Occurrences:0/1 Inter haile:ONE TIME Last released:08/10/2019 Released orders: [place] Aug 10, 2019 11:51 PM by: MAYANK QUEZADA V [id number] PROTHROMBIN TIME + INR [#[id number]] Priority: STAT Class: ER Collect Standing Order Information Remaining Occurrences:0/1 Inter haile:ONE TIME Last released:08/10/2019 Released orders: [place] Aug 10, 2019 11:51 PM by: MAYANK QUEZADA V [id number] PTT [#[id number]] Priority: STAT Class: ER Collect Specimen Source: Blood Standing Order Information Remaining Occurrences:0 /1 Interval:ONE TIME Last released:08/10/2019 Released orders: [place] Aug 10, 2019 11:51 PM by: MAYANK QUEZADA V [id number] LITHIUM [#[id number]] Pr iority: STAT Class: ER Collect Standing Order Information Remaining Occurrences:0/1 I nterval:ONE TIME Last released:08/10/2019 Released orders: [place] Aug 10, 2019 11:51 PM by: MAYANK QUEZADA V [id number] METABOLIC PANEL, COMPREHENSIVE [#[id number]] Bridgette ority: STAT Class: ER Collect Specimen Source: Plasma Specimen Collected: 08/11/2019 12:01 AM Resulting Agency: [facility] Test ID: MPL Released on: 08/10/2019 11:51 PM [id number] CBC WITH AUTOMATED DIFF [#[id number]] Priority: STAT Class: E R Collect Specimen Source: Whole Blood Specimen Collected: 08/11/2019 12:01 AM Resulting Agency: [facility] Test ID: [id number] Released on: 08/10/2019 11:51 PM [id number] TROPON IN I [#[id number]] Priority: STAT Class: ER Collect Specimen Source: [place] sma Specimen Collected: 08/11/2019 12:01 AM Resulting Agency: [facility] Test ID: TROIP Released on: 08/10/2019 11:51 PM [id number] MAGNESIUM [#[id number]] Priority: STAT Class: ER Collect Specimen Source: Plasma Specimen Collec hyun: 08/11/2019 12:01 AM Resulting Agency: [facility] Test ID: MGPL Re leased on: 08/10/2019 11:51 PM [id number] BNP [#[id number]] Priority : STAT Class: ER Collect Specimen Source: Plasma Specimen Collected: 08/11/2019 12:01 AM Resultin g Agency: [facility] Test ID: BNPPB Released on: 08/10/2019 11:51 PM [id number] D DIMER [#[id number]] Priority: STAT Class: ER Collect Speci men Source: Plasma Specimen Collected: 08/11/2019 12:01 AM Resulting Agency: [facility] Test ID: DDIME Released on: 08/10/2019 11:51 PM [id number] PROTHROMBIN TIME + INR [#[id number]] Priority: STAT Class: ER Collect Specimen Source: Plasma Specimen Collec hyun: 08/11/2019 12:01 AM Resulting Agency: [facility] Test ID: APTHR R eleased on: 08/10/2019 11:51 PM [id number] PTT [#[id number]] Priorit y: STAT Class: ER Collect Specimen Source: Plasma Specimen Collected: 08/11/2019 12:01 AM Resultin g Agency: [facility] Test ID: APTT Released on: 08/10/2019 11:51 PM [id number] LITHIUM [#[id number]] Priority: STAT Class: ER Collect Speci men Source: Serum Specimen Collected: 08/11/2019 12:01 AM Resulting Agency: [facility] Test ID: LI Released on: 08/10/2019 11:51 PM [id number] LACTIC ACID [#[id number]] Priority: STAT Class: ER Collect Standing Order Information Remainin g Occurrences:0/1 Interval:ONE TIME Last released:08/11/2019 Released orders : Mon Aug 11, 2019 12:15 AM by: KATI WILSON [id number] LACTIC ACID [#[id number]] Priority: STAT Class: ER Collect Specimen Source: Plasma Specimen Collec hyun: 08/11/2019 12:01 AM Resulting Agency: [facility] Test ID: LAC Rel eased on: 08/11/2019 12:15 AM ASPIRIN 81 MG CHEWABLE TAB [#[id number]] Priority: STAT Class: Normal [id number] XR CHEST PORT [#[id number]] Priority: STAT Cl ass: Hospital Performed Standing Order Information Remaining Occurrences:0/1 Inter haile:ONE TIME Last released:08/10/2019 Released orders: Sun Aug 10, 2019 11:51 PM by: MAYANK QUEZADA V Reason for Exam -> Chest Pain [id number] XR CHEST PORT [#[id number]] Priority: STAT Class: Hospital Performed Resulting Agency: [facility] Test ID: [id number] Reason for Exam -> Chest Pain Released on: 08/10/2019 11:51 PM [id number] INFLUENZA A & B AG (RAPID TEST) [#[id number]] Priority: STAT Class: ER Collect Sta nding Order Information Remaining Occurrences:0/1 Interval:ONE TIME Last released: 08/10/2019 Released orders: Sun Aug 10, 2019 11:51 PM by: MAYANK QUEZADA V [id number] INFL UENZA A & B AG (RAPID TEST) [#[id number]] Priority: STAT Class: ER Collect Specimen Source : Nasal washing Specimen Collected: 08/11/2019 12:18 AM Resulting Agency: [facility] Test ID: INFLUA Released on: 08/10/2019 11:51 PM [id number] CULTURE, BLOOD [#[id number]] Priority: STAT Class: ER Collect Specimen Source: Blood Standing Order Information Remaining Occurrences:0/1 Interval:ONE TIME Last released:0 08/11/2019 Released orders: SunAug 11, 2019 12:15 AM by: KATI WILSON [id number] CULTU RE, BLOOD [#[id number]] Priority: STAT Class: ER Collect Specimen Source : Blood Standing Order Information Remaining Occurrences:0/1 Interval:ONE TI ME Last released:08/11/2019 Released orders: SunAug 11, 2019 12:15 AM by: KATI WILSON [id number] CULTURE, BLOOD [#[id number]] Priority: STAT Class: E R Collect Specimen Source: Blood Specimen Collected: 08/11/2019 12:33 AM Resulting Agency: [facility] Test ID: HBCS Released on: 08/11/2019 12:15 AM [id number] CULTUR E, BLOOD [#[id number]] Priority: STAT Class: ER Collect Specimen Source: Blo od Specimen Collected: 08/11/2019 12:43 AM Resulting Agency: [facility] Test ID: HBCS Released on: 08/11/2019 12:15 AMLuisitoAnna donovan MR#: [id number] Acct#: [id number]* Rm: [id number]: 5' 10" Wt: 280 lb Code: Prior Iso:Diagnosis:Allergies: No Amanda garcia Allergies -------- Current as of: 08/11/19 014 GI=Given -------aspirin (ASPIRIN) tablet 325 mg #[id number] Admin Amount: 1 Tab (1 x 325 mg Tab) Ordered Dose: 325 mg Route: Oral Freq: ONCE Start Date: 12/24/13 No administration times (b ack 96 hours, ahead 96 hours). ------diphenhydrAMINE (BENADRYL) capsule 50 mg #[id number] Admin Amount: 1 Cap (1 x 50 mg Cap) Ordered Dose: 50 mg [place] band: Oral Freq: NOW Start Date: 12/24/13 No administration times (back 96 hours, ahead 96 hours). ------diazepam (VALIUM) tablet 5 mg #[id number] Admin Amount: 1 Tab (1 x 5 mg Tab) Ordered Dose: 5 mg Route: Oral Freq: ONCE Start Date: 12/24/13 No administration times (back 96 hours, ahead 96 hours). ------lidocaine (XYLOCAINE) 10 mg/mL (1 %) injection 1-3 0 mL #[id number] Admin Amount: 1-30 mL Ordered Dose: 1-30 mL Route: Int raDERMal Freq: ONCE Start Date: 12/24/13 No administration times (back 96 hours, ahead 96 hours). ------heparin (PF) 2 units/ml in NS infusion 2,000 Units #[id number] Admin Amount: 1,000 mL = 2,000 Units of 2 Units/mL Ordered Dose: 1,000 mL Route: Irrigation Freq: ONCE Start Date: 12/24/13 No administration times (back 96 hours, ahead 96 hours). ------heparinized saline 2 units/mL infusion 1,000 Units #[id number] Admin Amount: 500 mL = 1,000 Units of 2 Units/mL Ordered Dose: 500 m L Route: IntraarTERial Freq: ONCE Start Date: 12/24/13 No admini stration times (back 96 hours, ahead 96 hours). ------0.9% sodium chloride infusion #[id number] Ordered Dose: 75 mL/hr Route: IntraVENous Freq: CONTINUOUS Start Date: 12/24/13 Rate: 75 mL/hr Duration: No administration ti mes (back 96 hours, ahead 96 hours). ------ioversol (OPTIRAY) 320 mg iodine/mL contrast inje ction 1-100 mL #[id number] Admin Amount: 1-100 mL Ordered Dose: 1-100 mL [place] band: IntraVENous Freq: RAD ONCE Start Date: 12/24/13 No administration times (back 96 hours, ahead 96 hours).Anna Bray MR#: [id number] * Rm: [id number] Ht: 5' 10" Wt: 280 lb Code: Prior Iso:Diagnosis:Allergies: No Known Allergies -------- Current as of: 08/11/19 0142 GI=Given -------gadobutrol (GADAVIST) contrast solution 1-10 mL #[id number] Admin Amount: 1-10 mL Ordered Dose: 1-10 mL Route: Int raVENous Freq: RAD ONCE Start Date: 01/13/14 No administration times (back 96 hours, ahead 96 hours). ------sodium chloride (NS) flush 5-10 mL #[id number] Admin Amount: 5-10 mL Ordered Dose: 5-10 mL Route: IntraVENo us Freq: RAD ONCE Start Date: 01/13/14 No administration times (back 96 hours, ahe ad 96 hours). ------sodium chloride (NS) 0.9 % flush #[id number] Ordered Dose: Route: Freq: Start Date: 01/13/14 No administration times (back 96 hours, ahead 96 hours). ------morphine injection 2 mg #[id number] Admin Amount: 1 mL = 2 mg of 2 mg/mL Ordered Dose: 2 mg Route: IntraVENous Freq: NOW Start Date: 03/13/15 No administration t imes (back 96 hours, ahead 96 hours). ------influenza vaccine (4 yr+)(PF) (FLUCELVAX Q UAD) injection 0.5*#[id number] Admin Amount: 0.5 mL Ordered Dose: 0.5 mL Route: Int raMUSCular Freq: PRIOR TO DISCHARGE Start Date: 03/30/16 No administration times (back 9 6 hours, ahead 96 hours). ------oxyCODONE-acetam inophen (PERCOCET) 5-325 mg per tablet 1 Tab #[id number] Admin Amount: 1 Tab Ordered Dose: 1 Tab Route: Oral Freq: NOW Start Date: 09/07/17 No administration times (back 96 hours, e ad 96 hours). ------barium sulfate (READICAT) 2.1 % (w/v), 2.0 % (w/w) oral suspension 9*#[id number] Admin Amount: 900 mL Ordered Dose: 900 mL Route: Oral Delgado q: RAD ONCE Start Date: 10/15/17 No administration times (back 96 hours, e ad 96 hours). ------iopamidol (ISOVUE 300) 61 % contrast injection 100 mL #[id number] Admin Amount: 100 mL Ordered Dose: 100 mL Route: Int raVENous Freq: RAD ONCE Start Date: 10/15/17 No administration times (back 96 hours, ahead 96 hours).Anna Bray MR#: [id number] * Rm: [id number]: 5' 1 0" Wt: 280 lb Code: Prior Iso:Diagnosis:Allergies: No Known Allergies -------- Current as of: 08/11/19 0142 GI=Given -------risperiDONE (RisperDAL m-tabs) disintegrating tablet 1 mg #[id number] Admin Amount: 1 Tab (1 x 1 mg Tab) Ordered Dose: 1 mg Route: Oral Freq: ONCE Start Date: 12/24/17 No administration times (back 96 hours, ahead 96 hours). ------ALPRAZolam (XANAX) tablet 2 mg #[id number] Admin Amount: 4 Tab (4 x 0.5 mg Tab) Ordered Dose: 2 mg Route: Oral Freq: NOW Start Date: 12/24/17 No administration times (back 96 hours, ahead 96 hours). ------lamoTRIgine (LaMICtal) tablet 100 mg #[id number] Admin Amount: 1 Tab (1 x 100 mg Tab) Ordered Dose: 100 mg Route: Oral Freq: ONCE Start Date: 12/24/17 No administration times (back 96 hours, ahead 96 hours). ------OLANZapine (ZyPREXA zydis) disintegrating tablet 5 mg #[id number] Admin Amount: 1 Tab (1 x 5 mg Tab) Ordered Dose: 5 mg Route: Oral Freq: ONCE Start Date: 12/25/17 No administration times (back 96 hours, ahead 96 hours). ------LORazepam (ATIVAN) tablet 2 mg #[id number] Admin Amount: 4 Tab (4 x 0.5 mg Tab) Ordered Dose: 2 mg Route: Oral Freq: NOW Start Date: 12/25/17 No administration times (back 96 hours, ahead 96 hours). ------LORazepam (ATIVAN) injection 1 mg #[id number] Admin Amount: 0.5 mL = 1 mg of 2 mg/mL Ordered Dose: 1 mg Route: IntraVENous Freq: NOW Start Date: 12/25/17 No administration ti mes (back 96 hours, ahead 96 hours). ------barium sulfate (EZ PAQUE) 96 % (w/w) contrast suspensio n 176 g #[id number] Admin Amount: 176 g Ordered Dose: 176 g Route: Oral Delgado q: RAD ONCE Start Date: 08/02/18 No administration times (back 96 hours, ahe ad 96 hours). ------barium sulfate (EZ PAQUE) 96 % (w/w) contrast suspensio n 176 g #[id number] Admin Amount: 176 g Ordered Dose: 176 g Route: Oral Delgado q: RAD ONCE Start Date: 08/02/18 No administration times (back 96 hours, e ad 96 hours).Anna Bray MR#: [id number] * Rm: [id number]: 5' 10" Wt: 280 lb Code: Prior Iso:Diagnosis:Allergies: No Known Allergies -------- Current as of: 08/11/19 0142 GI=Given -------aspirin chewable tablet 162 mg #[id number] Admin Amount: 2 Tab (2 x 81 mg Tab) Ordered Dose: 162 mg Route: Oral Freq: NOW Start Date: 08/10/19 Administration times (laura k 96 hours, ahead 96 hours): 08/11/19: 0020GI ED Current OP MedicationsVRAYL AR 6 mg capsuleSig:Dispense Amount:Start Date:07/07/2019End Date:Doc. Provider: Provider, Historical cyclobenzaprine (FLEXERIL) 10 mg tabletSig:Take 1 Tab by mouth three (3) times daily as needed for Musc le Spasm(s).Dispense Amount:15 TabStart Date:07/21/2019End Date:Doc. Provider: Ritika Canas MDvalAC Yclovir (VALTREX) 1 gram tabletSig:TAKE 1 TABLET BY MOUTH THREE TIMES A DAY FOR 10 DAYSDispense Am ount:Start Date:07/17/2018End Date:Doc. Provider: Danilo BustosclonazePAM (KLONOPIN) 2 mg tab letSig:Take 2 mg by mouth two (2) times a day.Dispense Amount:Start Date:End Date:Doc. Provider : Paul Bradford MDfluoxetine HCl (PROZAC PO)Sig:Take 60 mg by mouth daily.Dispense Amount:Start Date: nd Date:Doc. Provider: Paul Bradford MD ED Prescriptions None on FileFollow-up InformationFollow-up With:Ritika Canas MDDetails:Schedule an appointment as soon as possible for a visit in 1 dayComments:Contact Info:[address] [place], [place] [address] [facility] centerpa[facility] [address] [id number]-ys With:Detail s:Comments:As needed, If symptoms worsenContact Info: Name Value Range Interpretation Code Description Data Melani e(s) Supporting Document(s ) ID Date Data Source [id number] 08/11/2019 01:40:37 AM EST [facility] I have reviewed discharge instructions w ith the patient and spouse. The patientand spouse verbalized understanding.\\ Name Value Range Interpretation Code Description Data Melani rce(s) Supporting Document(s ) ID Date Data Source [id number] 08/16/2019 06:35:29 AM EST [facility] Name Value Range Interpretation Description Data Sup porting Code Source(s) Document(s ) Service comment [facility] Bacteria [facility] - Good identified in [facility] Unspecified Hospital specimen by Culture ID Date Data Source [id number] 08/16/2019 06:35:28 AM EST [facility] Name Value Range Interpretation Description Data Sup porting Code Source(s) Document(s ) Service comment [facility] Bacteria [facility] - Good identified in [facility] Unspecified Hospital specimen by Culture ID Date Data Source [id number] 08/11/2019 12:56:01 AM [facility] Name Value Range Interpretation Description Data Sup porting Code Source(s) Document(s ) Influenza virus NEG [facility] - Good A Ag [Presence] [facility] in [facility] Hospital by Immunoassay Influenza virus NEG [facility] - Good B Ag [Presence] [facility] in [facility] Hospital by Immunoassay IMMUNOCHROMATOGRAPHIC MEMBRANE ASSAYResu lt: Negative for Influenza A and BNote: A negative result does not exclude an infl uenza virus infection, including H1N1. If more conclusive testing is desired, foll ow-up confirmatory testing is warranted. Specimen source [Identifier] of Unspecified [facility] specimen ID Date Data Source [id number] 08/11/2019 01:35:58 AM EST [facility] Value Range Interpretation Description Data Sup porting Code Source(s) Document(s ) Prothrombin 9.6 sec 9.4-11.1 [facility] - Good time (PT) [facility] INR in 0.9 0.8-1.2 [facility] - Good Platelet poor [facility] plasma by Hospital Coagulation assay ID Date Data Source [id number] 08/11/2019 01:35:58 AM [facility] Interpretation Description Data Sup porting Code Source(s) Document(s ) aPTT in 23.1 SEC 21.0-28. [facility] - Good Platelet poor 0 [facility] plasma by Hospital Coagulation assay Therapeutic Range = 42.0-60.0 secs ID Date Data Source [id number] 08/11/2019 01:30:36 AM EST [facility] Name Value Range Interpretation Description Data Sup porting Code Source(s) Document(s ) Natriuretic 19 pg/mL 0-100 [facility] - Good peptide B [facility] [Mass/volume] [facility] in Serum or Plasma ID Date Data Source [id number] 08/11/2019 01:25:10 AM EST [facility] Value Range Interpretation Code Description Data Supporting Source(s) Document(s ) [place] 0.6-1.2 Below low normal [facility] - Good [Moles/volum [facility] e] in Serum Hospital or Plasma ID Date Data Source [id number] 08/11/2019 01:20:56 AM EST [facility] Name Value Range Interpretation Code Description Data Melani rce(s) Supporting Document(s ) Fibrin <500 [facility] - Good D-dimer FEU [facility] [Mass/critical access hospital] [facility] in Platelet poor plasma (NOTE)Combination of a D-Dimer result wi thin the reference range and a lowclinical pretest probability has good negative pr edictive value fordeep venous thrombosis.If results are utilized for VTE evaluation, <500 ng/ml is consideredto be negative. ID Date Data Source [id number] 08/11/2019 01:09:42 AM EST [facility] Value Range Interpretation Description Data Sup porting Code Source(s) Document(s ) Lactate 1.7 0.4-2.0 [facility] - Good [Moles/volu MMOL/L [facility] me] in Hospital Serum or Plasma ID Date Data Source [id number] 08/11/2019 01:09:42 AM EST [facility] Name Value Range Interpretation Description Data Sup porting Code Source(s) Document(s ) Troponin 0.00-0.05 [facility] - Good I.cardiac [facility] [[facility]/volume [facility] ] in Serum or Plasma (NOTE)The presence [...] to 1.50 ng/mL ID Date Data Source [id number] 08/11/2019 01:09:42 AM EST [facility] Name Value Range Interpretation Description Data Sup porting Code Source(s) Document(s ) Sodium 140 136-145 [facility] - Good [Moles/volume] mmol/L [facility] in Serum or Hospital Plasma Potassium 3.9 3.5-5.1 [facility] - Good [Moles/volume] mmol/L [facility] in Serum or Hospital Plasma Chloride 113 98-107 Above high normal [facility] - Good [Moles/volume] mmol/L [facility] in Serum or Hospital Plasma Carbon 21 21-32 [facility] - Good dioxide, total mmol/L [facility] [Moles/volume] Hospital in Serum or Plasma Anion gap in 10 10-20 [facility] - Good Serum or mmol/L [facility] Plasma Hospital Glucose 90 mg/dL 74-106 [facility] - Good [Mass/volume] [facility] in Serum or Hospital Plasma Urea nitrogen 18 mg/dL 7-18 [facility] - Good [Mass/volume] [facility] in Serum or Hospital Plasma Creatinine 0.78 0.70-1.3 [facility] - Good [Mass/volume] mg/dL 0 [facility] in Serum or Hospital Plasma Glomerular >60 [facility] - Good filtration [facility] rate/1.73 sq M Hospital predicted among blacks [Volume Rate/Area] in Serum or Plasma by Creatinine-bas ed formula (MDRD) Glomerular >60 [facility] - Good filtration [facility] rate/1.73 sq M Hospital predicted among non-blacks [Volume Rate/Area] in Serum or Plasma by Creatinine-bas ed formula (MDRD) (NOTE)Estimated GFR is calculated using the Modification of Diet in RenalDisease (MDRD) Study equation, reported for both Americans(GFRAA) and non- Americans (GFRNA), and normalized to 1.7 8r5hpvu surface area. The physician must decide which [...] normal [facility] - Good Serum or Plasma [facility] Hosp ital Bilirubin.total 0.5 mg/dL 0.2-1.0 [facility] - Good [Mass/volume] in Serum or [facility] Plasma Alanine aminotransferase 29 U/L 13-61 [facility] - Good [Enzymatic activity/volume] [facility] in Serum or Plasma Aspartate aminotransferase 18 U/L 15-37 [facility] HS - Good [Enzymatic activity/volume] [facility] in Serum or Plasma by With P-5'-P Alkaline phosphatase 98 U/L 45-117 [facility] - G ood [Enzymatic activity/volume] [facility] in Serum or Plasma Protein [Mass/volume] in 6.7 g/dL 6.4-8.2 [facility] - Good Serum or Plasma [facility] ital Albumin [Mass/volume] in 3.4 g/dL 3.5-4.7 Below low normal [facility] - Good Serum or Plasma by [facility] ospital Bromocresol purple (BCP) dye binding method Globulin [Mass/volume] in 3.3 g/dL 1.7-4.7 [facility] - Good Serum by [facility] Albumin/Globulin [Mass 1.1 0.7-2.8 [facility] - Good Ratio] in Serum or Plasma [facility] ID Date Data Source [id number] 08/11/2019 01:09:42 AM EST [facility] - [facility] Name Value Range Interpretation Description Data Sup porting Code Source(s) Document(s ) Magnesium 2.1 mg/dL 1.6-2.6 [facility] - Good [Mass/volume] [facility] in Serum or Hospital Plasma ID Date Data Source [id number] 08/11/2019 01:01:18 AM EST [facility] - Good [facility] Name Value Range Interpretation Description Data Sup porting Code Source(s) Document(s ) Leukocytes 7.7 K/uL 4.8-10.6 [facility] - [#/volume] in Good Blood by [facility] Erythrocytes 4.93 4.70-6.0 [facility] - [#/volume] in M/uL [address] [facility] Hemoglobin 14.9 14.0-18. [facility] - [Mass/volume] in g/dL 0 Good Blood [facility] Hematocrit 44.4 % 42.0-52. [facility] - [Volume 0 Good Fraction] of [facility] Blood by Hospital Automated count Erythrocyte mean 90.1 FL 81.0-94. [facility] - corpuscular 0 Good volume [Entitic [facility] volume] by Hospital Automated count Erythrocyte mean 30.2 PG 27.0-35. [facility] - corpuscular 0 Good hemoglobin [facility] [Entitic mass] Hospital by Automated count Erythrocyte mean 33.6 30.7-37. [facility] - corpuscular g/dL 3 Good hemoglobin [facility] concentration Hospital [Mass/volume] by Automated count Erythrocyte 12.5 % 11.5-14. [facility] - distribution 0 Good width [Ratio] by [facility] Automated count Hospital Platelets 189 K/uL 130-400 [facility] - [#/volume] in Good Blood by [facility] Automated count Hospital Platelet mean 9.0 FL 9.2-11.8 Below low normal [facility] - volume [Entitic Good volume] in Blood [facility] by Automated Hospital count Nucleated 0.0 PER 0 [facility] - erythrocytes/100 100 WBC Good leukocytes [facility] [Ratio] in Blood Hospital Nucleated 0.00 0.0-0.01 [facility] - erythrocytes K/uL Good [#/volume] in [facility] Segmented 59 % 48.0-72. [facility] - neutrophils/100 0 Good leukocytes in [facility] Lymphocytes/100 29 % 18.0-40. [facility] - leukocytes in 0 [facility] Blood [facility] Monocytes/100 7 % 2.0-12.0 [facility] - leukocytes in [facility] Eosinophils/100 5 % 0.0-7.0 [facility] - leukocytes in [facility] Blood [facility] Basophils/100 1 % 0.0-3.0 [facility] - leukocytes in [facility] Blood [facility] Immature 0 % 0-0.5 [facility] - granulocytes/100 Good leukocytes in [facility] Blood by Hospital Automated count Segmented 4.6 K/UL 2.3-7.6 [facility] - neutrophils Good [#/volume] in [facility] Lymphocytes 2.2 K/UL 0.9-4.2 [facility] - [#/volume] in [facility] Blood [facility] Monocytes 0.5 K/UL 0.1-1.7 [facility] - [#/volume] in [facility] Eosinophils 0.4 K/UL 0.0-1.0 [facility] - [#/volume] in [facility] Basophils 0.1 K/UL 0.0-0.4 [facility] - [#/volume] in [facility] Immature 0.0 K/UL 0.0-0.17 [facility] - granulocytes Good [#/volume] in [facility] by Hospital Automated count Differential [facility] - cell count Good method - [facility] Procedure Social History Code Duration Value Status Description Data Source(s ) Alcohol intake 01/08/2020 Current completed Current [facility] 12:00:00 AM EDT non-drinker non-drinker of [employer] alcohol (finding) [employer] (finding) Tobacco use and 01/08/2020 Never used completed Never used [facility] exposure 12:00:00 AM EDT [employer] Smoking 01/08/2020 Never smoker completed Never smoker [facility] 12:00:00 AM EDT [employer] Alcohol intake 12/25/2019 Current completed Current [facility] 12:00:00 AM EDT non-drinker non-drinker of [employer] alcohol (finding) [employer] (finding) Tobacco use and 12/25/2019 Never used completed Never used [facility] exposure 12:00:00 AM EDT [employer] Smoking 12/25/2019 Never smoker completed Never smoker [facility] 12:00:00 AM EDT [employer] Alcohol intake 12/12/2019 Current completed Current [facility] 12:00:00 AM EDT non-drinker non-drinker of [employer] alcohol (finding) [employer] (finding) Smoking 12/12/2019 Never smoker completed Never smoker [facility] 12:00:00 AM EDT [employer] Alcohol intake 12/05/2019 Current completed Current [facility] 12:00:00 AM EDT non-drinker non-drinker of [employer] alcohol (finding) [employer] (finding) Tobacco use and 12/05/2019 Never used completed Never used [facility] exposure 12:00:00 AM EDT [employer] Smoking 12/05/2019 Never smoker completed Never smoker [facility] 12:00:00 AM EDT [employer] Alcohol intake 12/01/2019 Current completed Current [facility] 12:00:00 AM EDT non-drinker non-drinker of [employer] alcohol alcohol (finding) [employer] (finding) Smoking 12/01/2019 Never smoker completed Never smoker [facility] 12:00:00 AM EDT [employer] Alcohol intake 11/14/2019 Current completed Current [facility] 12:00:00 AM EDT non-drinker non-drinker of [employer] alcohol alcohol (finding) [employer] (finding) Smoking 11/14/2019 Never smoker completed Never smoker [facility] 12:00:00 AM EDT [employer] Alcohol intake 11/10/2019 Current completed Current [facility] 12:00:00 AM EDT non-drinker non-drinker of [employer] alcohol (finding) [employer] (finding) Smoking 11/10/2019 Never smoker completed Never smoker [facility] 12:00:00 AM EDT [employer] Alcohol intake 09/06/2019 Current completed Current [facility] s 12:00:00 AM EDT non-drinker non-drinker of [employer] alcohol alcohol (finding) [facility] [employer] (finding) Smoking 09/06/2019 Never smoker completed Never smoker [facility] 12:00:00 AM EDT [employer] [facility] [employer] Alcohol intake 08/16/2019 Current completed Current [facility] s 12:00:00 AM EST non-drinker non-drinker of [employer] alcohol alcohol (finding) [facility] [employer] (finding) Smoking 08/16/2019 Never smoker completed Never smoker Bernard [facility] 12:00:00 AM EST [employer] [facility] Alcohol intake 08/10/2019 Current completed Current [facility] s 12:00:00 AM EST non-drinker non-drinker of [employer] alcohol alcohol (finding) [facility] [employer] (finding) Smoking 08/10/2019 Never smoker completed Never smoker Bernard s 12:00:00 AM EST [employer] [facility] Alcohol intake 07/21/2019 Current completed Current [facility] 12:00:00 AM EST non-drinker non-drinker of [facility] of alcohol alcohol (finding) [facility] [employer] (finding) Smoking 07/21/2019 Never smoker completed Never smoker Bernard s 12:00:00 AM EST [employer] Smoking 07/29/2018 Never smoker completed Never smoker Bernard s 12:00:00 AM EST [employer] Smoking 07/19/2018 Never smoker completed Never smoker [facility] 12:00:00 AM EST [employer] Smoking 07/11/2018 Never smoker completed Never smoker Bernard s 12:00:00 AM EST [employer] Vital Signs ID Date Data Source UNK Name Value Range Interpretation Code Description Data Source(s) Oxygen saturation 98 % 98 % [facility] in Arterial blood [email or web address] by Pulse oxim[employer] [facility] Body mass index 48.95 kg/m2 48.95 kg/m2 [facility] ours (BMI) [Ratio] [employer] [facility] Body weight 136.533 kg 136.533 kg [facility] [employer] Body height 167 cm 167 cm [employer] Respiratory rate 12 /min 12 /min [facility] [employer] [facility] Body temperature 36.56 May 36.56 May [facility] [employer] Heart rate 102 /min 102 /min [employer] Diastolic blood 60 mm[Hg] 60 mm[Hg] [facility] [employer] Systolic blood 100 mm[Hg] 100 mm[Hg] Bernard s pressure [employer] Diastolic blood 80 mm[Hg] 80 mm[Hg] [facility] [employer] Systolic blood 122 mm[Hg] 122 mm[Hg] Bernard s pressure [employer] Respiratory rate 20 /min 20 /min [facility] [employer] [facility] Heart rate 70 /min 70 /min [facility] [employer] Diastolic blood 70 mm[Hg] 70 mm[Hg] [facility] pressure [employer] Systolic blood 124 mm[Hg] 124 mm[Hg] Bernard s pressure [employer] Respiratory rate 18 /min 18 /min [facility] Body temperature 36.56 May 36.56 May [facility] [employer] [facility] Heart rate 88 /min 88 /min [facility] Diastolic blood 86 mm[Hg] 86 mm[Hg] [facility] pressure [employer] [facility] Systolic blood 110 mm[Hg] 110 mm[Hg] Bernard s pressure [employer] [facility] Oxygen saturation 98 % 98 % [facility] in Arterial blood Bela [employer] by Pulse oximetry [facility] Body mass index 47.98 kg/m2 47.98 kg/m2 [facility] (BMI) [Ratio] [facility] Body weight 133.811 kg 133.811 kg [facility] [employer] [facility] Body height 167 cm 167 cm [facility] Respiratory rate 12 /min 12 /min [facility] [employer] [facility] Body temperature 36.67 May 36.67 May [facility] [employer] [facility] Heart rate 100 /min 100 /min [facility] [employer] [facility] Diastolic blood 66 mm[Hg] 66 mm[Hg] [facility] pressure [employer] [facility] Systolic blood 102 mm[Hg] 102 mm[Hg] Bernard s pressure [employer] [facility] Respiratory rate 20 /min 20 /min [facility] [employer] [facility] Heart rate 70 /min 70 /min [facility] [employer] Diastolic blood 68 mm[Hg] 68 mm[Hg] [facility] Systolic blood 120 mm[Hg] 120 mm[Hg] Bernard s pressure [employer] [facility] Respiratory rate 18 /min 18 /min [facility] [employer] [facility] Heart rate 68 /min 68 /min [facility] [employer] Diastolic blood 68 mm[Hg] 68 mm[Hg] [facility] Systolic blood 112 mm[Hg] 112 mm[Hg] Bernard s pressure [employer] [facility] Respiratory rate 20 /min 20 /min [facility] [employer] [facility] Body temperature 36.56 May 36.56 May [facility] [employer] [facility] Heart rate 92 /min 92 /min [facility] [employer] Diastolic blood 70 mm[Hg] 70 mm[Hg] [facility] pressure [employer] [facility] Systolic blood 110 mm[Hg] 110 mm[Hg] [facility] pressure [facility] Respiratory rate 20 /min 20 /min [facility] [employer] [facility] Heart rate 68 /min 68 /min [facility] Diastolic blood 72 mm[Hg] 72 mm[Hg] [facility] Systolic blood 112 mm[Hg] 112 mm[Hg] Bernard s pressure [employer] [facility] Respiratory rate 20 /min 20 /min [facility] [employer] [facility] Heart rate 82 /min 82 /min [facility] Diastolic blood 66 mm[Hg] 66 mm[Hg] [facility] pressure [employer] [facility] Systolic blood 110 mm[Hg] 110 mm[Hg] Bernard s pressure [employer] [facility] Respiratory rate 14 /min 14 /min [facility] [employer] [facility] Body temperature 36.89 May 36.89 May [facility] [employer] [facility] Heart rate 72 /min 72 /min [facility] Diastolic blood 74 mm[Hg] 74 mm[Hg] [facility] pressure [employer] [facility] Systolic blood 128 mm[Hg] 128 mm[Hg] Bernard s pressure [employer] [facility] Respiratory rate 20 /min 20 /min [facility] [employer] [facility] Heart rate 68 /min 68 /min [facility] Diastolic blood 64 mm[Hg] 64 mm[Hg] [facility] Systolic blood 108 mm[Hg] 108 mm[Hg] Bernard s pressure [employer] [facility] Respiratory rate 18 /min 18 /min [facility] [employer] [facility] Heart rate 80 /min 80 /min [facility] Diastolic blood 70 mm[Hg] 70 mm[Hg] [facility] Systolic blood 98 mm[Hg] 98 mm[Hg] Bernard [facility] pressure [facility] Respiratory rate 20 /min 20 /min [facility] [employer] [facility] Body temperature 36.56 May 36.56 Mya [facility] [employer] [facility] Heart rate 78 /min 78 /min [facility] [employer] Diastolic blood 60 mm[Hg] 60 mm[Hg] [facility] pressure [facility] Systolic blood 110 mm[Hg] 110 mm[Hg] Bernard s pressure [employer] [facility] Body mass index 48.95 kg/m2 48.95 kg/m2 [facility] (BMI) [Ratio] [employer] Body weight 136.533 kg 136.533 kg [facility] [employer] [facility] Respiratory rate 18 /min 18 /min [facility] [employer] [facility] Body temperature 36.56 May 36.56 May [facility] [employer] [facility] Heart rate 80 /min 80 /min [facility] Diastolic blood 70 mm[Hg] 70 mm[Hg] [facility] pressure [employer] [facility] Systolic blood 128 mm[Hg] 128 mm[Hg] Bernard s pressure [employer] Oxygen saturation 98 % 98 % [facility] in Arterial blood Bela [facility]plified by Pulse oxim[employer] [facility] Body mass index 48.95 kg/m2 48.95 kg/m2 [facility] (BMI) [Ratio] [employer] [facility] Body weight 136.533 kg 136.533 kg [facility] [employer] Body height 167 cm 167 cm [employer] [facility] Respiratory rate 14 /min 14 /min [facility] [employer] [facility] Body temperature 36.44 May 36.44 May [facility] [employer] [facility] Heart rate 98 /min 98 /min [employer] Diastolic blood 60 mm[Hg] 60 mm[Hg] [facility] pressure [employer] [facility] Systolic blood 110 mm[Hg] 110 mm[Hg] Bernard s pressure [employer] [facility] Oxygen saturation 96 % 96 % [facility] in Arterial blood Bela [employer] by Pulse [employer] [facility] Respiratory rate 18 /min 18 /min [facility] [employer] [facility] Body temperature 36.72 May 36.72 May [facility] [employer] [facility] Heart rate 80 /min 80 /min [facility] [employer] [facility] Diastolic blood 88 mm[Hg] 88 mm[Hg] [facility] pressure [facility] Systolic blood 128 mm[Hg] 128 mm[Hg] Bernard s pressure [employer] [facility] Body mass index 48.97 kg/m2 48.97 kg/m2 [facility] (BMI) [Ratio] [employer] Body weight 136.578 kg 136.578 kg [facility] [employer] [facility] Body height 167 cm 167 cm [employer] Oxygen saturation 98 % 98 % [facility] in Arterial blood Bela [employer] by Pulse oxim[facility] Body mass index 48.30 kg/m2 48.30 kg/m2 [facility] (BMI) [Ratio] [employer] Body weight 134.718 kg 134.718 kg [facility] [employer] [facility] Body height 167 cm 167 cm [employer] Respiratory rate 14 /min 14 /min [facility] [employer] Body temperature 37.33 May 37.33 May [facility] [employer] Heart rate 100 /min 100 /min [employer] Diastolic blood 68 mm[Hg] 68 mm[Hg] [facility] pressure [employer] Systolic blood 118 mm[Hg] 118 mm[Hg] Bernard s pressure [employer] Oxygen saturation 98 % 98 % [facility] in Arterial blood Bela [employer] by Pulse oxim[employer] [facility] Body mass index 47.49 kg/m2 47.49 kg/m2 [facility] (BMI) [Ratio] [employer] Body weight 132.45 kg 132.45 kg [employer] Body height 167 cm 167 cm [employer] Respiratory rate 12 /min 12 /min [facility] [employer] [facility] Body temperature 36.44 May 36.44 May [facility] [employer] [facility] Heart rate 88 /min 88 /min [employer] [facility] Diastolic blood 70 mm[Hg] 70 mm[Hg] [facility] pressure [employer] [facility] Systolic blood 102 mm[Hg] 102 mm[Hg] Bernard s pressure [employer] Oxygen saturation 92 % 92 % [facility] in Arterial blood [employer] by Pulse oximetry [facility] Body mass index 45.86 kg/m2 45.86 kg/m2 [facility] (BMI) [Ratio] [employer] Body weight 133.811 kg 133.811 kg [employer] Body height 170.8 cm 170.8 cm [employer] Respiratory rate 12 /min 12 /min [facility] [employer] Body temperature 36.67 May 36.67 May [facility] [employer] [facility] Heart rate 88 /min 88 /min [facility] [employer] Diastolic blood 80 mm[Hg] 80 mm[Hg] [facility] pressure [employer] Systolic blood 120 mm[Hg] 120 mm[Hg] Bernard s pressure [employer] Oxygen saturation 95 % 95 % [facility] in Arterial blood Bela [facility]plified by Pulse oximetry [facility] Respiratory rate 18 /min 18 /min [facility] [employer] [facility] Body temperature 36.44 May 36.44 May [facility] [employer] [facility] Heart rate 100 /min 100 /min [facility] [employer] Diastolic blood 80 mm[Hg] 80 mm[Hg] [facility] pressure [employer] Systolic blood 123 mm[Hg] 123 mm[Hg] Bernard s pressure [employer] Body mass index 46.99 kg/m2 46.99 kg/m2 [facility] (BMI) [Ratio] [employer] Body weight 136.079 kg 136.079 kg [facility] [employer] Body height 170.2 cm 170.2 cm [facility] [employer] Oxygen saturation 96 % 96 % [facility] in Arterial blood Bela [facility]plified by Pulse oximetry [facility] Body mass index 45.55 kg/m2 45.55 kg/m2 [facility] (BMI) [Ratio] [employer] Body weight 132.904 kg 132.904 kg [facility] [employer] [facility] Body height 170.8 cm 170.8 cm [facility] [facility] Respiratory rate 14 /min 14 /min [facility] [employer] [facility] Body temperature 35.89 May 35.89 May [facility] [employer] [facility] Heart rate 96 /min 96 /min [facility] [employer] Diastolic blood 78 mm[Hg] 78 mm[Hg] [facility] pressure [employer] Systolic blood 116 mm[Hg] 116 mm[Hg] Bernard s pressure [employer] Oxygen saturation 92 % 92 % [facility] in Arterial blood Bela Symplified by Pulse oximetry [facility] Respiratory rate 15 /min 15 /min [facility] [employer] [facility] Heart rate 96 /min 96 /min [employer] Diastolic blood 86 mm[Hg] 86 mm[Hg] [facility] pressure [employer] Systolic blood 121 mm[Hg] 121 mm[Hg] Bernard s pressure [employer] Body mass index 40.18 kg/m2 40.18 kg/m2 [facility] (BMI) [Ratio] [employer] Body weight 127.007 kg 127.007 kg [facility] [employer] [facility] Body height 177.8 cm 177.8 cm [employer] Body temperature 36.72 May 36.72 May [facility] [employer] Body temperature 36.33 May 36.33 May [facility] [employer] Oxygen saturation 96 % 96 % [facility] in Arterial blood Bela Symplified by Pulse oximetry [facility] Respiratory rate 21 /min 21 /min [facility] [place] Heart rate 85 /min 85 /min [employer] Diastolic blood 88 mm[Hg] 88 mm[Hg] [facility] pressure [employer] Systolic blood 155 mm[Hg] 155 mm[Hg] Bernard s pressure [facility]IO [facility] Body mass index 40.18 kg/m2 40.18 kg/m2 [facility] (BMI) [Ratio] [employer] [facility] Body weight 127.007 kg 127.[address] [facility] Body height 177.8 cm 177.8 cm [employer] Oxygen saturation 98 % 98 % [facility] in Arterial blood Bela Symplified by Pulse oximetry [facility] Body mass index 44.66 kg/m2 44.66 kg/m2 [facility] (BMI) [Ratio] [employer] Body weight 128.368 kg 128.368 kg [employer] Body height 169.5 cm 169.5 cm [employer] Respiratory rate 12 /min 12 /min [facility] [employer] Body temperature 36.28 May 36.28 May [facility] [employer] Heart rate 68 /min 68 /min [employer] Diastolic blood 80 mm[Hg] 80 mm[Hg] [facility] pressure [employer] Systolic blood 122 mm[Hg] 122 mm[Hg] Bernard s pressure [employer] Oxygen saturation 96 % 96 % [facility] in Arterial blood Bela Symplified by Pulse oximetry [facility] Diastolic blood 53 mm[Hg] 53 mm[Hg] [facility] pressure [facility] Systolic blood 107 mm[Hg] 107 mm[Hg] Bernard s pressure [facility] Respiratory rate 17 /min 17 /min [facility] Body temperature 37.11 May 37.11 May [facility] [employer] [facility] Heart rate 58 /min 58 /min [facility] Body mass index 38.06 kg/m2 38.06 kg/m2 [facility] (BMI) [Ratio] [employer] [facility] Body weight 110.224 kg 110.224 kg [facility] Measured [facility] Body height 170.2 cm 170.2 cm [facility] Oxygen saturation 98 % 98 % [facility] in Arterial blood [facility] by Pulse oximetry [facility] Body mass index 37.71 kg/m2 37.71 kg/m2 [facility] (BMI) [Ratio] [employer] [facility] Body weight 108.41 kg 108.41 kg [facility] Measured [facility] Body height 169.5 cm 169.5 cm Bon [employer] [facility] Respiratory rate 16 /min 16 /min [facility] Body temperature 36.44 May 36.44 May [facility] Heart rate 74 /min 74 /min [facility] Diastolic blood 70 mm[Hg] 70 mm[Hg] [facility] pressure [facility] Systolic blood 94 mm[Hg] 94 mm[Hg] Bernard s pressure [facility] Oxygen saturation 98 % 98 % [facility] in Arterial blood [facility] by Pulse oximetry [facility] Respiratory rate 17 /min 17 /min [facility] [employer] [facility] Body temperature 36.33 May 36.33 May [facility] Heart rate 87 /min 87 /min [facility] Diastolic blood 75 mm[Hg] 75 mm[Hg] [facility] pressure [facility] Systolic blood 121 mm[Hg] 121 mm[Hg] Bernard s pressure [facility]IO [facility] Body mass index 39.94 kg/m2 39.94 kg/m2 [facility] (BMI) [Ratio] [facility] Body weight 108.863 kg 108.863 kg [facility] Measured [facility] Inc Body height 165.1 cm 165.1 cm [facility] Patient Treatment Plan of Care Planned Activity Planned Date Details Description Data Source (s) Propranolol Hydrochloride 01/08/2020 Francisco Javier [facility] 10 MG Oral Tablet 12:00:00 AM ED [facility] Clonazepam 0.5 MG Oral 12/25/2019 [facility] Tablet 12:00:00 AM EDT [facility] Ibuprofen 200 MG Oral 12/22/2019 [facility] Tablet 12:00:00 AM EDT [facility] olanzapine 5 MG Oral Tablet 12/09/2019 [facility] 09:00:00 AM EDT [facility]plified [facility] Inc Olmesartan medoxomil 20 MG [...] 12:00:00 AM EDT [facility] [place] Carbonate 300 MG 11/30/2019 [facility] Oral Capsule 12:00:00 AM EDT [facility] Amitriptyline Hydrochloride 11/12/2019 [facility] 100 MG Oral Tablet 12:00:00 AM EDT Symplified [facility] Docusate Sodium 100 MG Oral 11/04/2019 [facility] Capsule 12:00:00 AM EDT [facility] Bisacodyl 5 MG Delayed 11/03/2019 [facility] Release Oral Tablet 12:00:00 AM EDT [employer] [facility] Bisacodyl 5 MG Delayed 10/31/2019 [facility] Release Oral Tablet 01:50:17 PM EDT [facility] [employer] [facility] Acetaminophen 325 MG Oral 10/29/2019 Francisco Javier [facility] Tablet 02:44:40 PM EDT [facility] sodium chloride (NS) flush 10/29/2019 [facility] 5-40 mL 11:01:53 AM EDT [facility] 24 HR Bupropion 10/17/2019 [facility] Hydrochloride 150 MG 12:00:00 AM EDT [employer] [facility] Extended Release Oral Tablet 24 HR Bupropion 10/17/2019 [facility] Hydrochloride 300 MG 12:00:00 AM EDT [employer] [facility] Extended Release Oral Tablet Vraylar 3 mg capsule 09/03/2019 [facility]a 12:00:00 AM ED [facility] Inc Amitriptyline Hydrochloride 08/20/2019 [facility] 150 MG Oral Tablet 12:00:[address] [employer] [facility] [place] Carbonate 150 MG 08/16/2019 [facility] Oral Capsule 12:00:00 AM EST [place] [employer] Prednisone 50 MG Oral 08/16/2019 [facility] Tablet 12:00:00 AM EST [place] [employer] Cyclobenzaprine 07/21/2019 [facility] hydrochloride 10 MG Oral 12:00:[address] [employer] [facility] Tablet Acetaminophen 325 MG / 07/21/2019 [facility] Oxycodone Hydrochloride 5 12:00:[address] [employer] [facility] MG Oral Tablet VRAYLAR 6 mg capsule 07/07/2019 [facility] 12:00:00 AM EST [place] [employer] valacyclovir 1000 MG Oral 07/17/2018 Francisco Javier [facility] Tablet 12:00:00 AM EST [place] [employer] Risperidone 1 MG Oral 12/07/2017 [facility] Tablet 12:00:00 AM EDT [place] [employer] Alprazolam 1 MG Oral Tablet 12/07/2017 [facility] 12:00:00 AM ED [facility] Inc lamotrigine 25 MG Oral 12/07/2017 [facility] Tablet 12:00:00 AM ED [place] [facility] [facility] Clonazepam 2 MG Oral Tablet [facility] cariprazine (Vraylar) 6 mg [facility] capsule [facility] 24 HR Bupropion [facility] Hydrochloride 300 MG [facility] Extended Release Oral Tablet fluoxetine HCl (PROZAC PO) [facility] ziprasidone 80 MG Oral [facility] valacyclovir 500 MG Oral [facility] [employer] Tablet [Valtrex] [facility]
== END 2020-03-12 12:20 | disposition home or self-care (01) ==
LOC: FECT 09:13
PROVIDERS: ATTEND Psychiatry & Neurology Psychiatry
PROC: GZB4ZZZ Other Electroconvulsive Therapy (ICD-10-PCS; principal; 2020-03-12 08:30)
DX: F33.2 Major depressive disorder, recurrent severe without psychotic features (principal)
CPT/HCPCS: 90870; 94760; U0003

== ENCOUNTER 2020-03-18 07:01 | Day surgery (SDC) | payer OTHER ==
[2020-03-16 11:12] VITALS: BMI 48.0
--- OUTSIDE RECORDS SUMMARY | 2020-03-18 07:12 | XMS ---
:1970 Author Organization [facility] Care Team Providers Name Role Phone GLADIS FUNEZ Unavailable Unavailable GUEVARA, MARY Unavailable Unavailable XANDER COLBERT Unavailable Unavailable SUSI LONGO Unavailable Unavailable RITIKA CANAS MD Unavailable Unavailable BREGAUDIT Unavailable Unavailable CATHERINE Unavailable [...] is protected by Article 27-F of the [place] State Public Health law. If you continue you may haveaccess to information: Regarding HIV / AIDS; Provided by facilities licensed or operated by the [facility] Office of Mental Health; or Provided by the [facility] Office for People With Developmental Disabilities. If such information is present, then the following [facility] mandated warning applies: This information [...] law may result in a fine or senior care sentence or both. A general authorization for the release of medical or other information is NOT sufficient authorization for further disclosure. Encounters Encounter Providers Location Date Indications Data Source(s ) Outpatient 01/08/2020 03:30:00 [facility] EDT - 01/12/2020 [facility] 10:23:35 AM EDT Patient discharged. Attender: MARIYA CATHERINE 01/01/2020 12:00:00 AM [facility] Attender: MAURICIO 12/30/2019 12:00:00 AM [facility] Attender: MARIYA CATHERINE 12/29/2019 12:00:00 AM [facility] Outpatient 12/25/2019 04:00:00 PM Francisco Javier [facility] EDT - 12/25/2019 06:48:40 [facility] PM EDT Patient discharged. 12/25/2019 12:00:00 AM [facility] EDT - 12/25/2019 Hospital 11:59:00 PM EDT Attender: MARIYA 12/25/2019 12:00:00 AM [facility] Attender: SUSI LONGO 12/25/2019 12:00:00 AM [facility] Attender: MAURICIO 12/24/2019 12:00:00 AM [facility] Attender: MARIYA 12/22/2019 12:00:00 AM [facility] Attender: SUSI LONGO 12/22/2019 12:00:00 AM [facility] Attender: MAURICIO 12/19/2019 12:00:00 AM [facility] Attender: MARIYA 12/18/2019 12:00:00 AM [facility] Attender: GLADIS FUNEZ 12/18/2019 12:00:00 AM [facility] Attender: SUSI LONGO 12/17/2019 12:00:00 AM [facility] Attender: MAURICIO 12/16/2019 12:00:00 AM [facility]: MARIYA 12/15/2019 12:00:00 AM [facility] Attender: XANDER COLBERT 12/13/2019 12:00:00 AM [facility] Outpatient 12/12/2019 12:00:00 PM Francisco Javier russell [facility] EDT - 12/12/2019 [facility] 01:20:23 PM EDT Patient discharged. Attender: ROSSI 12/08/2019 05:55:36 B on Boaz GUEVARA EDT - 01/02/2020 [facility] 12:00:00 AM EDT System In c Inpatient Admitter: RITIKA 12/05/2019 12:00:00 General We akness [facility] AM EDT - 12/08/2019 [facility] 03:44:00 PM EDT General Weakness Patient discharged. Outpatient 12/05/2019 12:00:00 AM EDT [facility] Outpatient 12/01/2019 03:45:00 PM EDT - [facility] 12/01/2019 05:01:16 PM EDT Inc Patient discharged. Outpatient 11/14/2019 01:00:00 PM EDT - [facility] 11/18/2019 11:56:43 AM EDT System Inc Patient discharged. Outpatient 11/10/2019 09:00:00 AM EDT - [facility] 11/10/2019 04:44:05 PM EDT System Inc Patient discharged. Inpatient Admitter: RITIKA CANAS 10/29/2019 12:00:00 AM let hargic BSS - Good EDT - 11/03/2019 [facility] 04:02:00 PM EDT lethargic Patient discharged. Outpatient 09/15/2019 08:22:58 AM EDT [facility] - 09/15/2019 11:59:00 PM Hospital EDT Outpatient 09/10/2019 04:00:00 PM EDT [facility] Outpatient 09/04/2019 03:15:00 PM EDT [facility] Outpatient 08/19/2019 07:31:00 AM EST [facility] ([facility]) Outpatient 08/18/2019 06:35:00 AM EST [facility] ([facility]) Outpatient 08/17/2019 07:16:00 AM EST [facility]EXTGEN ([facility]) Emergency 08/16/2019 12:00:00 AM EST Shortness of Breath [facility] - 08/16/2019 10:45:00 PM Hospital EST Shortness of Breath Patient discharged. Outpatient 08/11/2019 12:05:00 AM EST [facility] Emergency 08/10/2019 12:00:00 AM EST - Chest P ain [facility] 08/11/2019 01:42:00 AM EST Hospital Chest Pain Patient discharged. Outpatient 07/21/2019 04:15:00 PM EST - [facility] 07/22/2019 10:51:43 AM EST System Inc Patient discharged. Immunizations Vaccine Date Status Description Data Source(s) New in 2012. 09/04/2019 completed Influenza 09/04/2019 [facility] IIV4 12:00:00 AM EDT Vaccine (Quad) [facility] IIV3. This is one 07/19/2018 completed Influenza 07/19/2018, [facility] of two codes 12:00:00 AM EST Vaccine 04/30/2014 [facility] replacing CVX 15, He alth which is being [employer] retired. Influenza, 04/01/2016 completed Influenza 04/01/2016 [facility] injectable, MDCK, 12:00:00 AM EDT Vaccine (Quad) [facility] preservative [email or web address] quadrivalent Tdap 12/11/2014 completed Tdap 12/11/2014 [facility] 12:00:00 AM EDT [facility] [employer] [facility] IIV3. This is one 04/30/2014 completed Influenza 07/19/2018, [facility] of two codes 12:00:00 AM EST Vaccine 04/30/2014 Bela replacing CVX 15, He alth which is being [employer] retired. RAMAKRISHNA 06/12/2013 completed Influenza 06/12/2013 [facility] 12:00:00 AM EST Vaccine Moira ity (Trivalent) [facility] Medications Medication Brand Start Product Dose Route Administrative Pharmacy [facility] Indications Reaction Description Data Name Date Form Instructions Instructions Source(s) Propranolol propra 10 mg Oral active essential T stephanie 1 Tab Bon Hydrochlori noloL 2019 tremor by mouth S [facility] de 10 MG (BETO 12:00: three (3) Ch arity Oral Tablet AL) 10 00 AM times maty y. Health propranoloL mg EDT Indications: System Inc [...] Tablet tablet 5 mg EDT dose (after Bela OLANZapine last Health (ZyPREXA) modification) S ystem tablet 5 mg on Tue Inc 12/09/19 at 0900, Until Discontinued Medication administered onsite Olmesartan olmesartan 12/09/2019 20 Oral completed h ypertension Take 1 Tab by Bon medoxomil (BENICAR) 12:00:00 AM mg paul th daily [facility] 20 MG Oral 20 mg EDT for 30 days. Bela Tablet tablet Indications: Hea lt olmesartan high blood Sys tem (BENICAR) pressure Inc 20 mg tablet hypertension Losartan losartan 12/09/2019 50 Oral active hypertension Take 1 Tab by Bon Potassium (COZAAR) 12:00:00 AM mg mout h daily [facility] 50 MG Oral 50 mg EDT for 30 days. Bela Tablet tablet Indications: [facility] losartan high blood Syste m (COZAAR) 50 pressure Inc mg tablet hypertension olanzapine 5 OLANZapine 12/09/2019 5 Oral active evangelina [The details Bon MG Oral (ZyPREXA) 5 12:00:00 AM mg associated of the [facility] Tablet mg tablet EDT with medication Ch arity OLANZapine bipolar are not Hea lth (ZyPREXA) 5 disorder available System mg tablet [...] on Sun Bela OLANZapine mg 12/07/19 at [facility] (ZyPREXA) 1400, Until Sys tem tablet 2.5 Discontinued I nc mg Medication administered onsite [place] lithium 12/07/2019 300 Oral active 300 mg , Oral, Bon Carbonate carbonate SR 02:00:00 PM mg 2 TIMES DAILY, [facility] 300 MG (LITHOBID) EDT First dose o n Bela Extended tablet 300 Sun 0 at [facility] Release Oral mg 1400, Until System Tablet Discontinued Inc lithium carbonate SR (LITHOBID) tablet 300 mg Medication administered onsite Losartan losartan 12/07/2019 50 Oral active 50 m g, Oral, Bon Potassium 50 (COZAAR) 01:00:00 PM mg D AILY, First [facility] MG Oral tablet 50 EDT dose on Sun Bela Tablet mg 12/07/19 at [facility] losartan 1300, Until Syst em (COZAAR) Discontinued Inc tablet 50 mg Medication administered onsite furosemide 38682-958-80 12/07/2019 20 IntraVENous complete d 20 mg, [...] 12/13/19 at 0900 Medication administered onsite furosemide 87891-404-07 12/06/2019 20 IntraVENous complete d edema 20 [...] il mg Discontinued Medication administered onsite 0.9% 3519-6230-63 12/05/2019 100 IntraVENous aborted 100 mL/hr, at [...] 1 dose, Ch arity sodium 12/05/19 at He lt chloride 1121, at 100 Sys tem (MBP/ADV) 50 mL/hr Inc mL MBP Medication administered onsite Risperidone 2 risperiDONE 12/04/2019 2 mg Oral aborted Share d Take 1 Bon MG Oral (RisperDAL) 2 12:00:00 AM psychotic Tab by [facility] Tablet mg tablet EDT disorder mouth Jagruti rity risperiDONE (HCC) daily. Healt h (RisperDAL) 2 System mg tablet Inc Shared psychotic disorder (HCC) [place] lithium 11/30/2019 aborted Bon Carbonate 300 carbonate [...] (DULCOLAX) 5 Inc mg EC tablet cariprazine 943200 11/01/2019 6 mg Oral active 6 m g, Oral, Bon (VRAYLAR) 09:00:00 PM EVERY Se cours capsule 6 mg EDT BEDTIME, Jagruti zurdo (Patient First dose on He alth Supplied) 11/01/19 at ystem 2100, Until Inc Discontinued Medication administered onsite Hydrocortisone hydrocortisone 11/01/2019 Topical active Topical, 2 Bon 0.025 MG/MG (HYTONE) 2.5 % 06:00:00 PM TIMES DAILY, [facility] Topical Ointment ointment EDT Firs t dose on [facility] hydrocortisone 11/01/19 at [facility] (HYTONE) 2.5 % 1800, Unti l System ointment Discontinued Inc Medication administered onsite Docusate docusate 10/31/2019 200 Oral active 200 mg, Oral, Bon Sodium 100 sodium 02:00:00 PM mg DAILY , First [facility] MG Oral (COLACE) EDT dose on Sun C harity Capsule capsule 200 10/31/19 at [facility] docusate mg 1400, Until Syst [...] haloperidoL tablet 5 mg EDT ONCE, 1 [facility] (HALDOL) dose, Health tablet 5 mg Denise System 10/30/19 [facility] at 2100 Medication administered onsite amitriptyline 10/30/2019 150 mg Oral active 1 50 mg, Oral, Bon (ELAVIL) tablet 09:00:00 PM EV AN BEDTIME, [facility] 150 mg EDT First dose on [facility] ity Denise 10/30/19 at [facility] 2100, Until System I nc Discontinued Medication administered onsite Haloperidol 2 haloperidoL 10/30/2019 2 mg Oral aborted 2 mg, Oral, Bon MG Oral (HALDOL) 08:01:20 PM EVERY 6 [facility] Tablet tablet 2 mg EDT HOURS Ch arity haloperidoL NEEDED, [facility] h (HALDOL) Starting Denise Sys tem tablet 2 mg 10/30/19 at [facility] 2000, Until 10/31/19 at 2043, Psychosis, Agitation Medication administered onsite [place] lithium 10/30/2019 300 Oral active 300 mg , Oral, Bon Carbonate carbonate 12:00:00 PM mg 2 T IMES DAILY, [facility] 300 MG Oral tablet 300 EDT First d ose on Bela Tablet mg Denise 10/30/19 at [facility] lithium 1200, Until Syste m carbonate Discontinued In c tablet 300 mg Medication administered onsite Clonazepam 1 clonazePAM 10/30/2019 1 mg Oral active 1 mg, Oral, 2 Bon MG Oral (KlonoPIN) 12:00:00 PM TIME S DAILY, [facility] Tablet tablet 1 mg EDT First dose on Bela clonazePAM Denise 10/30/19 at [facility] (KlonoPIN) 1200, Until Sy stem tablet 1 mg Discontinued Inc Medication administered onsite 0.9% 4704-3397-03 10/29/2019 100 IntraVENous aborted 100 mL/hr, at Bon sodium 02:55:00 PM mL/h 100 mL/hr, [facility] chloride EDT IntraVENous, Jagruti rity infusion CONTINUOUS, Heal Starting Wed System 10/29/19 at [facility] 1455, Until 11/01/19 at 1446 Medication administered onsite 0.4 ML enoxaparin 10/29/2019 40 SubCUTAneous active 40 mg, Bon Enoxaparin (LOVENOX) 02:55:00 PM mg Gallardo bCUTAneous, [facility] sodium 100 injection 40 EDT EVERY 24 Bela MG/ML mg HOURS, First [facility] Prefilled dose on Sun Sys tem Syringe 10/29/19 at [place] enoxaparin 1455, Until (LOVENOX) Discontinued injection 40 mg Medication administered onsite Acetaminophen acetaminophen 10/29/2019 650 Oral active 650 mg, Oral, Bon 325 MG Oral (TYLENOL) 02:44:40 PM mg E VERY 4 HOURS [facility] Tablet tablet 650 mg EDT NEEDED , Bela acetaminophen Starting [facility] (TYLENOL) [facility] mg 1444, Until Inc Discontinued, Mild Pain, Fever Medication administered onsite sodium 72359-049-74 10/29/2019 mL IntraVENous active 5-40 mL, Bon chloride 02:00:00 PM IntraVENo us, [facility] (NS) flush EDT EVERY 8 Charit y 5-40 mL HOURS, First Heal th dose on Sun System 10/29/19 at Inc 1400, Until Discontinued Medication administered onsite sodium 67987-536-32 10/29/2019 mL IntraVENous active 5-40 mL, Bon [...] XL) 150 mg tablet Vraylar 3 mg [id number] 09/03/2019 6 Oral aborted depre ssion Take [...] EST NOW, 1 Bela chewable tablet dose, [facility] 162 mg 08/16/19 System at 2103 Inc Medication administered onsite famotidine 08/16/2019 20 IntraVENous aborted 20 mg, Bon (PF) (PEPCID) 09:02:00 PM mg Intr aVENous, [facility] 20 mg in 0.9% EST EVERY 12 Ch arity sodium HOURS, First Healt h chloride 10 dose on Sat S ystem mL injection 08/16/19 at [facility] 2102, Until Discontinued Medication administered onsite methylPREDNISolone 043635 08/16/2019 125 IntraVENous comple hyun 125 mg, Bon (PF) (Solu-MEDROL) 09:02:00 PM mg IntraVENous, [facility] injection 125 mg EST NOW, 1 d ose, Bela 08/16/19 Health at 2102 System Inc Medication administered onsite 0.9% [id number] 08/16/2019 1000 IntraVENous completed 1,000 mL, at [...] mg tablet for 3 System days. Inc [place] lithium 08/16/2019 2 Oral active Take 2 [...] back pain due to trauma VRAYLAR 6 85820-975-26 07/07/2019 6 mg Oral aborted Bipolar Take [...] System DAILY Inc NEEDED FOR ANXIETY cariprazine 085099 6 mg Oral aborted Take 6 B [...] ID Covered Covered Policy Plan Coverage type libertarian ID libertarian's [place] Inform ation relationship to boland [facility] [id number] [facility] [id number] [facility] [id number] [facility] HMO [id number] [facility] Commerical [id number] [facility] [id number] PLAN [facility] [id number] HEALTH PLAN [facility] [id number] PLAN [facility] [id number] HEALTH PLAN POLO [id number] POLO [id number] [employer]IG[employer] PPO [id number] [facility] PPO [id number] [place] 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 [id number] COMPENSATION [facility] [id number] 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 [id number] COMPENSATION [facility] [id number] GENERIC [id number] COMMERCIAL [facility] [id number] PLAN [facility] GENERIC Commerical [id number] [facility] PPO [id number] PLAN [facility] [id number] PLAN 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 [id number] COMPENSATION [facility] [id number] [facility] PPO [id number] [place] [address] Problems, Conditions, and Diagnoses Code Display Name Description Problem Type Effective Data Dates Source(s) T88.7XXA Rgz-qkwm-uxoechb Txk-iwyk-kvmdimi [id number] 12/05/2019 Francisco Javier n [facility] adverse reaction to adverse reaction to 12:00:0 0 AM Bela medication medication [facility] [employer] T50.905A Adverse drug Adverse drug [id number] 12/05/2019 Girard s reaction, initial reaction, initial 12:00:00 AM [facility] encounter encounter [facility] [employer] G93.40 Encephalopathy acute Encephalopathy acute [id number] 12/04 [facility] 12:00:00 AM Bela [employer] F31.4 Bipolar disorder Bipolar disorder [id number] 10/29/2019 Francisco Javier n [facility] with severe with severe 12:00:00 AM Bela depression depression [employer] E55.9 Vitamin D deficiency Vitamin D deficiency 90207437 09/03 [facility] 12:00:00 AM Bela [employer] F41.8 Mixed anxiety and Mixed anxiety and 29270400 09/04/2019 [facility] depressive disorder depressive disorder 12:00:0 0 AM [employer] E66.01 Morbid obesity Morbid obesity 47825157 07/21/2019 Bon Se [facility]s 12:00:00 AM [employer] Z98.84 Status post gastric Status post gastric [id number] 020 [facility] bypass for obesity bypass for obesity 12:00:00 AM [employer] F32.9 Depressive disorder Depressive disorder [id number] 020 [facility] 12:00:00 AM [employer] F31.9 Bipolar disorder Bipolar disorder 43251663 07/21/2019 Francisco Javier n [facility] 12:00:00 AM [employer] F41.9 Anxiety Anxiety 26266900 07/21/2019 [facility] 12:00:00 AM [employer] F32.9 Depression Depression 19578607 07/20/2018 [facility] 12:00:00 AM [employer] E66.01 Severe obesity Severe obesity 15305331 07/19/2018 Bon [facility] 12:00:00 AM [employer] [id number] Spells Spells [id number] 04/08/2016 [facility] 12:00:00 AM [employer] G40.909 Seizure disorder Seizure disorder 20789029 04/30/2014 Francisco Javier n [facility] 12:00:00 AM [employer] M79.2 Neuropathic pain of Neuropathic pain of [id number] 014 [facility] shoulder shoulder 12:00:00 AM [employer] G47.00 Insomnia Insomnia [id number] 11/04/2013 [facility] 12:00:00 AM [employer] Z98.84 H/O gastric bypass H/O gastric bypass [id number] 3 [facility] 12:00:00 AM [employer] G25.2 Other specified Other specified Diagnosis 01/08/2020 [facility] forms of tremor forms of tremor 03:17:29 PM [facility] [employer] F31.4 Bipolar disorder, Bipolar disorder, Diagnosis 12/25/2019 [facility] - current episode current episode 04:40:00 PM Goo d depressed, severe, depressed, severe, EDT Buddhist without psychotic without psychotic Hospital features features F41.9 Anxiety disorder, Anxiety disorder, Diagnosis 12/25/2019 [facility] unspecified unspecified 04:04:24 PM [facility] R25.1 Tremor, unspecified Tremor, unspecified Diagnosis 020 [facility] 04:04:24 PM [facility] Z98.84 Bariatric surgery Bariatric surgery Diagnosis 12/25/2019 [facility] status status 04:04:24 PM [facility] T88.7XXA Unspecified adverse Unspecified adverse Diagnosis 020 [facility] - effect of drug or effect of drug or 11:10:37 AM Good medicament, initial medicament, initial [facility] encounter encounter Hospital G93.40 Encephalopathy, Encephalopathy, Diagnosis 12/05/2019 [facility] - unspecified unspecified 11:10:37 AM [facility] R41.82 Altered mental Altered mental Diagnosis 12/05/2019 [facility] - status, unspecified status, unspecified 11:10:3 7 AM [facility] F51.04 Psychophysiologic Psychophysiologic Diagnosis 11/14/2019 [facility] insomnia insomnia 01:22:52 PM [facility] F32.2 Major depressive Major depressive Diagnosis 09/15/2019 [facility] - disorder, single disorder, single 08:22:58 AM G ood episode, severe episode, severe EDT Aidan ritan without psychotic without psychotic Hospital features features F41.8 Other specified Other specified Diagnosis 09/04/2019 [facility] anxiety disorders anxiety disorders 03:49:01 PM [facility] F32.2 Major depressive Major depressive Diagnosis 09/04/2019 Francisco Javier n [facility] disorder, single disorder, single 03:49:01 PM C harity episode, severe episode, severe EDT Heal th without psychotic without psychotic System Inc features features Z23 Encounter for Encounter for Diagnosis 09/04/2019 [facility] immunization immunization 03:49:01 PM [facility] T78.40XA Allergy, Allergy, Diagnosis 08/16/2019 [facility] - unspecified, initial unspecified, initial 08:39 :16 PM Good encounter encounter [facility] R06.00 Dyspnea, unspecified Dyspnea, unspecified Diagnosis 08/10 [facility] - 11:27:27 PM [facility] F31.75 Bipolar disorder, in Bipolar disorder, in Diagnosis 07/21 [facility] partial remission, partial remission, 04:40:28 PM Bela most recent episode most recent episode [facility] [phone] essential tremor Diagnosis [facility] [id number] Bipolar disorder Diagnosis [facility] with severe [facility] depression ([facility]) [facility] [id number] Anxiety Diagnosis Bon [facility] [phone] hypertension Diagnosis [facility] [phone] depression Diagnosis [facility] [phone] depression Diagnosis [facility] [phone] edema Diagnosis [facility] [phone] depression Diagnosis [facility] [phone] evangelina associated Diagnosis [facility] with bipolar [facility] 1255 1255 hypertension Diagnosis Bon [facility] [id number] Anxiety Diagnosis Bon [facility] 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 (disorder) disorder ([facility]) C [facility] [phone] depression Diagnosis Bon [facility] associated with [facility] bipolar disorder [facility] [id number] Acute low back pain Diagnosis Bon [facility] due to trauma [facility] [id number] Acute low back pain Diagnosis Bon [facility] due to trauma [facility] [id number] Bipolar disorder, in Diagnosis [facility] partial remission, Charit y most recent episode Healt h depressed ([facility]) System In c [id number] Herpes zoster Diagnosis Bon [facility] cephalicus [facility] Surgeries/Procedures Procedure Description Date Indications Data Source(s) HC HC Routine 12/25/2019 Bipolar 12/25/2019 Bipolar Francisco Javier n LITHIUM LITHIUM 4:41 PM EDT disorder 04:41:00 PM disorde r [facility] with severe EDT with severe [facility] depression depression He alth ([facility]) ([facility]) System Inc Bipolar disorder with severe depression ([facility]) GLUCOSE, POC GLUCOSE, POC Routine 12/08/2019 12/08/2019 Bon 11:35 AM 11:35:00 AM [facility]OLIC METABOLIC Routine 12/07/2019 12/07/2019 Bon PANEL, BASIC PANEL, BASIC 4:40 AM EDT 04:40:00 [facility] EEG 12-26 HR Routine 12/06/2019 12/06/2019 Bon W/VIDEO W/VIDEO 10:25 AM 10:25:08 AM [facility] LITHIUM HC LITHIUM Routine 12/06/2019 12/06/2019 Bon 4:25 AM EDT 04:25:00 AM [facility] HC LACTIC ACID HC LACTIC ACID STAT 12/05/2019 020 Bon 7:20 PM EDT 07:20:00 PM [facility] HC AMMONIA HC AMMONIA STAT 12/05/2019 12/05/2019 Bon 7:20 PM EDT 07:20:00 PM [facility] MRI BRAIN WO MRI BRAIN WO STAT 12/05/2019 12/05/2019 Bon CONT CONT 4:50 PM EDT 04:50:12 PM [facility] EEG 12-26 HR EEG 12-26 HR STAT 12/05/2019 12/05/2019 Bon W/VIDEO W/VIDEO 3:19 PM EDT 03:19:24 PM [facility] CULTURE, URINE CULTURE, URINE Routine 12/05/2019 020 Bon 2:45 PM EDT 02:45:00 PM [facility] URINALYSIS W/ URINALYSIS W/ STAT 12/05/2019 0 Bon RFLX RFLX 2:45 PM EDT 02:45:00 PM [facility] MICROSCOPIC MICROSCOPIC T [place] [facility] BILIRUBIN, BILIRUBIN, Routine 12/05/2019 12/05/2019 Bon CONFIRM CONFIRM 2:45 PM EDT 02:45:00 PM [facility] HC LACTIC ACID HC LACTIC ACID STAT 12/05/2019 020 Bon 12:40 PM 12:40:00 PM [facility] HC CULTURE STAT 12/05/2019 12/05/2019 Bon BLOOD BLOOD 12:38 PM 12:38:00 PM [facility] EDT EDT [facility] PROTHROMBIN PROTHROMBIN STAT 12/05/2019 12/05/2019 Bon TIME + INR TIME + INR 12:38 PM 12:38:00 PM [facility] EDT EDT [facility] CBC WITH CBC WITH STAT 12/05/2019 12/05/2019 Bon AUTOMATED DIFF AUTOMATED DIFF 12:38 PM 12:38:00 PM [facility] EDT EDT [facility] HC TROPONIN I HC TROPONIN I STAT 12/05/2019 0 Bon QUANT QUANT 12:38 PM 12:38:00 PM [facility] EDT EDT [facility] METABOLIC METABOLIC STAT 12/05/2019 12/05/2019 Bon PANEL, PANEL, 12:38 PM 12:38:00 PM [facility] COMPREHENSIVE COMPREHENSIVE EDT EDT [facility] MAGNESIUM MAGNESIUM STAT 12/05/2019 12/05/2019 Bon 12:38 PM 12:38:00 PM [facility] EDT EDT [facility] HC LITHIUM HC LITHIUM STAT 12/05/2019 12/05/2019 Bon 12:38 PM 12:38:00 PM [facility] EDT EDT [facility] CT HEAD WO CT HEAD WO STAT 12/05/2019 12/05/2019 Bon CONT CONT 12:30 PM 12:30:54 PM [facility] EDT EDT [facility] HC CULTURE HC CULTURE STAT 12/05/2019 12/05/2019 Bon BLOOD BLOOD 12:30 PM 12:30:00 PM [facility] EDT EDT [facility] XR PELV AP XR PELV AP STAT 12/05/2019 12/05/2019 Bon ONLY ONLY 12:14 PM 12:14:58 PM [facility] EDT EDT [facility] XR CHEST PORT XR CHEST PORT STAT 12/05/2019 0 Bon 12:14 PM 12:14:51 PM [facility] EDT EDT [facility] RT--OXYGEN RT--OXYGEN STAT 12/05/2019 12/05/2019 Bon CANNULA CANNULA 11:20 AM 11:20:37 AM [facility] EDT EDT [facility] EEG DIGITAL EEG DIGITAL Routine 12/05/2019 12/05/2019 Bon ANALYSIS ANALYSIS 11:10 AM 11:10:37 AM S [facility] EDT EDT [facility] CBC WITH CBC WITH STAT 10/30/2019 10/30/2019 Bon AUTOMATED DIFF AUTOMATED DIFF 6:40 AM EDT 06:40: 00 AM [facility] EDT [facility] METABOLIC METABOLIC STAT 10/30/2019 10/30/2019 Bon PANEL, BASIC PANEL, BASIC 6:40 AM EDT 06:40:00 A M [facility] EDT [facility] URINALYSIS W/ URINALYSIS W/ STAT 10/29/2019 0 Bon RFLX RFLX 6:34 PM EDT 06:34:00 PM [facility] MICROSCOPIC MICROSCOPIC EDT [facility] XR CHEST PORT XR CHEST PORT STAT 10/29/2019 0 Bon 12:09 PM 12:09:04 PM [facility] EDT EDT [facility] CT HEAD WO CT HEAD WO STAT 10/29/2019 10/29/2019 Bon CONT CONT 11:47 AM 11:47:42 AM [facility] EDT EDT [facility] HC GLUCOSE HC GLUCOSE Routine 10/29/2019 10/29/2019 Bon POCT POCT 11:26 AM 11:26:00 AM [facility] EDT EDT [facility] PROTHROMBIN PROTHROMBIN STAT 10/29/2019 10/29/2019 Bon TIME + INR TIME + INR 10:45 AM 10:45:00 AM [facility] EDT EDT [facility] CBC WITH CBC WITH STAT 10/29/2019 10/29/2019 Bon AUTOMATED DIFF AUTOMATED DIFF 10:45 AM 10:45:00 AM [facility] EDT EDT [facility] HC PARTIAL HC PARTIAL STAT 10/29/2019 10/29/2019 Bon THROMBOPLASTIN THROMBOPLASTIN 10:45 AM 10:45:00 AM [facility] / PTT / PTT EDT EDT [facility] METABOLIC METABOLIC STAT 10/29/2019 10/29/2019 Bon PANEL, PANEL, 10:45 AM 10:45:00 AM [facility] COMPREHENSIVE COMPREHENSIVE EDT EDT [facility] HC LITHIUM HC LITHIUM STAT 10/29/2019 10/29/2019 Bon 10:45 AM 10:45:00 AM [facility] EDT EDT [facility] XR SPINE LUMB XR SPINE LUMB [...] n [facility] 9:00 PM EST 02:00:00 AM [facility] I nc CBC WITH AUTOMATED CBC WITH STAT 08/16/2019 0 [facility] DIFF AUTOMATED DIFF 9:00 PM EST 02:00:00 AM [facility] I nc TROPONIN I TROPONIN I STAT 08/16/2019 08/17/2019 [facility] 9:00 PM EST 02:00:00 AM [facility] I nc METABOLIC PANEL, METABOLIC PANEL, STAT 08/16/2019 [facility] COMPREHENSIVE COMPREHENSIVE 9:00 PM EST 02:00:00 AM [facility] I nc MAGNESIUM MAGNESIUM STAT 08/16/2019 08/17/2019 [facility] 9:00 PM EST 02:00:00 AM [facility] I nc LITHIUM LITHIUM STAT 08/16/2019 08/17/2019 Francisco Javier n [facility] 9:00 PM EST 02:00:00 AM [facility] I nc INFLUENZA A <td><content ID="[id number]">INFLUENZA A & B 07/26 Bon & B AG AG (RAPID 05:18:00 AM [facility] (RAPID TEST) TEST)</content></td><td>STAT</td><td>08/11/2019 [facility] 12:18 AM EST</td><td></td><td><paragraph Health styleCode="header">Results for this procedure are System in the <content Inc styleCode="[id number]">results section</content>.</paragraph></td> PROTHROMBIN PROTHROMBIN STAT 08/11/2019 08/11/2019 Bon TIME + INR TIME + INR 12:01 AM 05:01:00 AM [facility] D DIMER D DIMER STAT 08/11/2019 08/11/2019 Francisco Javier n 12:01 AM 05:01:00 AM Sec [facility] CBC WITH CBC WITH STAT 08/11/2019 08/11/2019 Bon AUTOMATED DIFF AUTOMATED DIFF 12:01 AM 05:01:00 AM [facility] PTT PTT STAT 08/11/2019 08/11/2019 Francisco Javier n 12:01 AM 05:01:00 AM Sec [facility] TROPONIN I TROPONIN I STAT 08/11/2019 08/11/2019 Bon 12:01 AM 05:01:00 AM Sec [facility] METABOLIC METABOLIC STAT 08/11/2019 08/11/2019 Bon PANEL, PANEL, 12:01 AM 05:01:00 AM [facility] COMPREHENSIVE COMPREHENSIVE [facility] MAGNESIUM MAGNESIUM STAT 08/11/2019 08/11/2019 Bon 12:01 AM 05:01:00 AM Sec [facility] LITHIUM LITHIUM STAT 08/11/2019 08/11/2019 Francisco Javier n 12:01 AM 05:01:00 AM Sec [facility] LACTIC ACID LACTIC ACID STAT 08/11/2019 08/11/2019 Bon 12:01 AM 05:01:00 AM Sec [facility] BNP BNP STAT 08/11/2019 08/11/2019 Francisco Javier n 12:01 AM 05:01:00 AM Sec [facility] RT--OXYGEN RT--OXYGEN STAT 08/10/2019 08/11/2019 Bon CANNULA CANNULA 11:51 PM 04:51:27 AM [facility] EST EST [facility] [employer] EKG, 12 LEAD, EKG, 12 LEAD, STAT 08/10/2019 0 Bon INITIAL INITIAL 10:14 PM 03:14:27 AM [facility] EST EST [facility] [employer] XR SMALL BOWEL XR SMALL BOWEL Routine 08/02/2018 Morbid 019 Morbid Bon SERIES SERIES 11:01 AM obesity 04:01:14 PM obesity [facility] EST (HCC) EST (HCC) [facility] [employer] [facility] Morbid obesity (HCC) CBC WITH AUTOMATED CBC WITH STAT 07/12/2018 9 [facility] DIFF AUTOMATED DIFF 12:40 AM EST 05:40:00 AM [facility] I nc TROPONIN I TROPONIN I STAT 07/12/2018 07/12/2018 [facility] 12:40 AM EST 05:40:00 AM [facility] [employer] [facility] I nc METABOLIC PANEL, METABOLIC PANEL, STAT 07/12/2018 [facility] COMPREHENSIVE COMPREHENSIVE 12:40 AM EST 05:40:0 0 AM [facility] [employer] I nc MAGNESIUM MAGNESIUM STAT 07/12/2018 07/12/2018 [facility] 12:40 AM EST 05:40:00 AM [facility] [employer] [facility] I nc RT--OXYGEN CANNULA RT--OXYGEN STAT 07/12/2018 019 [facility] CANNULA 12:21 AM EST 05:21:15 AM [facility] [facility] I nc Results ID Date Data Source [id number] 03/12/2020 12:00:00 PM EDT [facility] Name Value Range Interpretation Description Data Sup porting Code Source(s) Document(s ) SARS [facility] coronavirus 2 RNA This lab was ordered by KANG FRANCISCO and reported by [facility]. ID Date Data Source [id number] 03/08/2020 10:18:00 AM EDT [facility] Name Value Range Interpretation Description Data Sup porting Code Source(s) Document(s ) SARS [facility] coronavirus 2 RNA This lab was ordered by KANG FRANCISCO and reported by [facility]. ID Date Data Source [id number] 03/04/2020 09:50:00 AM EDT [facility] Name Value Range Interpretation Description Data Sup porting Code Source(s) Document(s ) SARS [facility] coronavirus 2 RNA [facility] lab [facility] and reported by [facility]. ID Date Data Source [id number] 03/02/2020 12:15:00 PM EDT [facility] Name Value Range Interpretation Description Data Sup porting Code Source(s) Document(s ) SARS [facility] coronavirus 2 RNA This lab was ordered by [facility] and reported by [facility]. ID Date Data Source [id number] 02/27/2020 09:15:00 AM EDT [facility] Name Value Range Interpretation Description Data Sup porting Code Source(s) Document(s ) SARS [facility] coronavirus 2 RNA This lab was ordered by [facility] and reported by [facility]. ID Date Data Source [id number] 02/23/2020 11:40:00 AM EDT [facility] Name Value Range Interpretation Description Data Sup porting Code Source(s) Document(s ) SARS [facility] coronavirus 2 RNA This lab was ordered by [facility] and reported by [facility]. ID Date Data Source [id number] 02/19/2020 09:56:00 AM EDT [facility] Name Value Range Interpretation Description Data Sup porting Code Source(s) Document(s ) SARS [facility] coronavirus 2 RNA This lab was ordered by [facility] and reported by [facility]. ID Date Data Source [id number] 02/16/2020 08:40:00 AM EDT [facility] Name Value Range Interpretation Description Data Sup porting Code Source(s) Document(s ) SARS [facility] coronavirus 2 RNA This lab was ordered by [facility] and reported by [facility]. ID Date Data Source [id number] 02/13/2020 10:05:00 AM EDT [facility] Name Value Range Interpretation Description Data Sup porting Code Source(s) Document(s ) SARS [facility] coronavirus 2 RNA This lab was ordered by [facility] and reported by [facility]. ID Date Data Source [id number] 02/09/2020 10:25:00 AM EDT [facility] Name Value Range Interpretation Description Data Sup porting Code Source(s) Document(s ) SARS [facility] coronavirus 2 RNA This lab was ordered by [facility] and reported by [facility]. ID Date Data Source [id number] 01/25/2020 09:20:00 AM EDT [facility] Name Value Range Interpretation Description Data Sup porting Code Source(s) Document(s ) 2019 Novel [facility] Coronavirus RNA Interpretation Unspecified Specimen Qualitative CATA Probe Detection This lab was ordered by [facility] and reported by [facility]. ID Date Data Source [id number] 12/25/2019 05:54:30 PM EDT [facility] Name Value Range Interpretation Description Data Sup porting Code Source(s) Document(s ) [place] 0.38 0.6-1.2 Below low normal [employer] [Moles/volu MMOL/L [facility]] in Hospital Serum or Plasma ID Date Data Source [id number] 12/23/2019 01:50:56 PM EDT [facility] Discharge SummaryPatient: Maxwell Mendieta Xiao key Sex: male DOA: 12/05/2019Date of : 1970 A ge: 49 y.o. LOS: LOS: 3 daysAdmit Date: 12/05/2019Discharge Date: 12/08/2019 Admission Diagnoses: Encephalopathy acute [G93.40];Tmu-drhu-ixwltxw adversereactio n to medication [T88.7XXA];Kkj-jqgj-tufopnh adverse reaction tomedication [T88.7XXA] Discharge Diagnoses: #1 [...] ICD-10-CM: T50.905AICD -9-CM: E947.9 12/05/2019 - Present Vlt-mzfa-txcdeuj adverse reaction to med ication ICD-10-CM: T88.8IBAESS-2-UI: 995.20 12/05/2019 - Present Bipolar disorder wit [...] E66.01ICD-9-CM: 278.01 07/19/2018 - Present Spells ICD-10-CM: [id number]: IMO00 01 04/08/2016 - Present Seizure disorder [...] Supporting Document(s ) ID Date Data Source [id number] 12/09/2019 02:14:04 PM EDT [facility] referral made. Walker order faxed t o [facility], [facility] do NOT acc ept pts insurance.Faxed to Moriah at [facility] at FAX [phone]. She reports they ne ed to get authfor walker. Have instucted pt to buy own walker IF not authorized.He i s agreeable to buying walker if needs to.Care Management InterventionsPCP Verified by CM: YesTransition of Care Consult (CM Consult): [facility] Home Car e: YesCurrent Support Network: Own Home, Lives with SpouseThe Patient and/or Prachi ent Lens Cutter was Provided with a Choice of Providerand Agrees with the Discharge Plan?: YesFreedom of Choice List was Provided with Basic Dialogue that Suppor ts thePatient's Individualized Plan of Care/Goals, Treatment Preferences and Sh aresthe Quality Data Associated with the Providers?: YesVeteran Resource Informat ion Provided?: RefusedDischarge LocationDischarge Placement: [facility] [place]([facility] BY [facility])Pt is discharged , picking him up. reports she has phone number timbo pt a follow up psych appt. [facility] to visit. will buy walker if not able to get thru [employer].Post dc note 12/08[employer] reports 50% copay - they lef t message on 's phone.I also, left a message with my call back number for any questions. hadreported to me she planned on buying a walker and would ret urn if insurance paidfor one. Name Value Range Interpretation Code Description Data Melani rce(s) Supporting Document(s ) ID Date Data Source [id number] 12/08/2019 03:06:17 PM EDT [facility] I have reviewed discharge instructions w [...] Supporting Document(s ) ID Date Data Source [id number] 12/08/2019 03:02:56 PM EDT [facility] Per your note, pt with acute encephalopa thy and toxic Serum [place] level.Please specify the type of encephalopathy in yo ur progress notes: Toxic encephalopathy due to lithium Metabolic encephalopathy due to Other cause (please specify) Clinically unable to determine UnknownPLEASE DOCUM ENT ANY ADDITIONAL DIAGNOSES AND/OR SPECIFICITY IN THE PROGRESSNOTES AND/OR DISCHARGE SUMMARY. Name Value Range Interpretation Code Description Data Melani rce(s) Supporting Document(s ) ID Date Data Source [id number] 12/08/2019 02:40:45 PM EDT [facility] Problem: SuicideGoal: *STG: Remains safe in hospital12/08/2019 1440 by Ru Mosher: Resolved/Met12/08/2019 1439 by Ru Mosher: Progressing Towards GoalGoal: *STG: Seeks staff when feeling s of self harm or harm towards others arise12/08/2019 1440 by Basilio Moshercome : Resolved/Met12/08/2019 1439 by Basilio Moshercome: Progressing Towards GoalGoa l: *STG: Attends activities and groups12/08/2019 1440 by Anup Mosher e: Resolved/Met12/08/2019 1439 by Basilio Moshercome: Progressing Towards GoalGoa l: *STG: Verbalizes alternative ways of dealing with maladaptivefeelings/behavio rs12/08/2019 1440 by Basilio Moshercome: Resolved/Met12/08/2019 143 by Glenys Mosher Outcome: Progressing Towards GoalGoal: *STG/LTG: Complies with medication thera py12/08/2019 1440 by Ru Mosher: Resolved/Met12/08/2019 143 by Glenys oMsher Outcome: Progressing Towards GoalGoal: *STG/LTG: No longer expresses self destr uctive or suicidal thoughts12/08/2019 1440 by Basilio Moshercome: Resolved/Met12/08/2019 143 by Ru Mosher: Progressing Towards GoalGoal: *LTG: Identifies [place] [employer]12/08/2019 1440 by Ru Mosher: Resolved/Met12/08/2019 143 by Ru Mosher: Progressing Towards GoalGoal: *LTG: [...] Fall R isk and appropriate interventions in [facility].12/08/2019 1440 by Divya Mosher: Resolved/MetNote: Fall Risk Interventions:Mobility Interventions: Be d/chair [...] Resolved/Met12/08/2019 1439 by Ru Mosher: Progressing T darrel GoalProblem: Pressure Injury - Risk ofGoal: *Prevention of pressure injuryDe scription: Document Harsh Scale and appropriate interventions in [facility] t.12/08/2019 1440 by Ru Mosher: Resolved/MetNote: [...] degrees or less, Lift sheet, Minimize layers12/08/2019 1439 by Ru Mosher: Progressing Towards GoalNote: Pressure [...] by Basilio Mosher come: Resolved/Met12/08/2019 1439 by Basilio Moshercome: Progressing Towards GoalPro blem: Patient Education: Go to Patient Education ActivityGoal: Patient/Family E ducation12/08/2019 1440 by Basilio Moshercome: Resolved/Met12/08/2019 1439 by Glenys Mosher Outcome: Progressing Towards Goal Name Value Range Interpretation Code Description Data Melani rce(s) Supporting Document(s ) ID Date Data Source [id number] 12/08/2019 02:40:17 PM EDT [facility] Problem: SuicideGoal: *STG: Remains safe [...] [facility]Outcome: Progressing Toward s GoalNote: Fall Risk Interventions:Mobility Interventions: Bed/chair exit alarmMenta tion Interventions: Door open when patient unattendedMedication Interventions: Asse ss postural VS orthostatic hypotension, Patient tocall before getting OOBElimina tion Interventions: Bed/chair exit alarm, Call light in reach, Stay WithMe (per po licy)History of Falls Interventions: Bed/chair exit alarm, Consult care manag ementfor discharge planning, Evaluate medications/consider consulting pharmacy , Roomclose to nurse's stationProblem: Patient Education: Go to Patient Educati on ActivityGoal: Patient/Family EducationOutcome: Progressing Towards Go alProblem: Pressure Injury - Risk ofGoal: *Prevention of pressure injuryDescriptio n: Document Harsh Scale and appropriate interventions in [facility].Outcome: P rogressing Towards GoalNote: Pressure Injury Interventions:Sensory [...] Supporting Document(s ) ID Date Data Source [id number] 12/08/2019 01:18:54 PM EDT [facility] Daily Progress NoteAdmit Date: Hospital day: .tdSubjective:Psycgm Neuro,and PT assessments reviewed. Patie nt qualifies for discharge. Wifecalled, will bring in clothes. New medical regimen di scussed with the . Willneed [place] level later this week.Current Facility-Adminis tered MedicationsMedication [...] past 8 hrs: BP Temp Pulse Resp [id number]/07 0816 - - - - 96 %12/08/19 [...] initial encounter (12/05/2019)Active Problems: Encephalopathy acute (12/05/2019) Cpc-emgr-wugyqgg adve rse reaction to medication (12/05/2019)Plan: day of discharge. Name Value Range Interpretation Code Description Data Melani rce(s) Supporting Document(s ) ID Date Data Source [id number] 12/08/2019 12:09:30 PM EDT [facility] Problem: Mobility Impaired (Adult and Pe [...] y.o. male)Date: 12/08/2019Primary Diagnosis: E ncephalopathy acute [G93.40]Miu-lruu-gnulwkm adverse reaction to medication [T88.7XXA ]Ugg-wyyu-qoqrmbq adverse reaction to medication [T88.7XXA]Precautions: Fall ASSESSMENT [...] morbidi ty or mortality cardiac cath at [facility] approx 6-8 months ago Other unknown and [...] NoneCritical Beh avior:Neurologic State: AlertOrientation Level: Oriented L1Ydxrsgtoi: Appropriate for age attention/concentration;Follows commandsSafety/Judgement: Decreased awar [...] plan of care.Thank you for t his referral.Eduardokurtis Garcia Time Calculation: 14 mins Name Value Range Interpretation Code Description Data Melani rce(s) Supporting Document(s ) ID Date Data Source [id number] 12/08/2019 11:48:26 AM EDT [facility] Name Value Range Interpretation Description Data Sup porting Code Source(s) Document(s ) Glucose 132 MG/DL 65-110 Above high normal [employer] [Mass/volume] Buddhist in Blood by Hospital Automated test strip ID Date Data Source [id number] 12/08/2019 10:35:45 AM EDT [facility] S/O Patient has shown improvement. He re ports that medications are helping him.He denies any side effectsHe denies any cecilia cidal thoughtsHe reports that he sees a psychiatrist DR. [facility] lithium 300 mg bid [place] level in two days Will increase Zyprexa 5 mg Will follow up as requested Name Value Range Interpretation Code Description Data Melani rce(s) Supporting Document(s ) ID Date Data Source [id number] 12/08/2019 07:28:52 AM EDT [facility] Bedside and Verbal shift change report cristi bolanos to SUSI Hurley (oncoming nurse) Annalise DE LEON RN (offgoing nurse). Repor t included the followinginformation SBAR, Kardex, MAR and Recent Results. Name Value Range Interpretation Code Description Data Melani rce(s) Supporting Document(s ) ID Date Data Source [id number] 12/07/2019 08:26:02 PM EDT [facility] Problem: Falls - Risk ofGoal: *Absence [...] Supporting Document(s ) ID Date Data Source [id number] 12/07/2019 07:05:28 PM EDT [facility] Verbal shift change report given to Chandrakant Cox RN (oncoming nurse) by Steven Villalobos RN (offgoing nurse). Report inc luded the following information SBAR, Kardex,Intake/Output, MAR, Recent Result s and Cardiac Rhythm on telemetry. Name Value Range Interpretation Code Description Data Melani rce(s) Supporting Document(s ) ID Date Data Source [id number] 12/07/2019 01:30:56 PM EDT [facility] Trent Jacob MD[address], [address] [place] [address] [id number] Progress NotePatient: Maxwell Bray Sex: male DOA: [...] (LOVENOX) injection 40 mg 40 mg SubCUTAneous T97VDelhhakij:Visit VitalsBP 153/85 (BP 1 Location: Left arm, BP Prachi ent Position: At rest)Pulse 96Temp 98.7 F (37.1 C)Resp 20Ht 5' 5.75" (1.67 m)Wt 3 01 lb 1.6 oz (136.6 kg)SpO2 96%BMI 48.97 kg/m Body mass index is 48.97 kg/m .Patient V itals for the past 24 hrs: Temp Pulse Resp BP LgU017/ 1249 - 96 - 153/85 - 0 [...] (37.1 C) 95 15 143/90 95 % 12/06/192039 - - - - 95 %12/06/19 1547 [...] the time notated as "note time" in [facility]. (It is not time stamped [...] Seizure disorder ([facility]) G40.909 Spells [id number] Severe obesity ([facility]) E66.01 Depression F32.9 Anxiety F41.9 Bipolar disorder (HCC) F31.9 Depressive disorder F32.9 Status post g astric bypass for obesity Z98.84 Morbid obesity ([facility]) E66.01 Mixed anxiety and depressive disorder F41.8 Vitamin D deficiency E55.9 Bipolar disorder with severe depression (HCC) F31.4 Encephalopathy acute G93.40 Adverse drug reaction, ini tial encounter T50.905A Cin-vycx-ottpaka adverse reaction to medication T88.7XXA 49 year [...] Value Range Interpretation Code Description Data [facility] rce(s) Supporting Document(s ) ID Date Data Source [id number] 12/07/2019 01:02:36 PM EDT [facility] Pt seen and discussed with Dr Canas .Pt is tearful flat and denies any suicidal thoughts , has been depressed withlithiu m on hold , No Vraylar and he is unable to get his ECT at [facility] And no w will be with [facility] with Dr Womack his lithium level is un therape utic range I will start on lithium , add 2.5mg of zyprexa and lower his klonopin And increase his elavil to 200 mg HSWill get pt followed up with Psychiatry Name Value Range Interpretation Code Description Data [facility] rce(s) Supporting Document(s ) ID Date Data Source [id number] 12/07/2019 12:52:32 PM EDT [facility] Problem: Fluid Volume - Risk of, Imbalan cedGoal: *Balanced intake and outputOutcome: Progressing Towards GoalProblem: Patient Education: Go to Patient Education ActivityGoal: Patient/Family EducationOu tcome: Progressing Towards Goal Name Value Range Interpretation Code Description Data [facility] rce(s) Supporting Document(s ) ID Date Data Source [id number] 12/07/2019 12:45:20 PM EDT [facility] Problem: Falls - Risk ofGoal: *Absence [...] Bra den Scale and [facility].Outcome: Progressing Toward s GoalNote: Pressure Injury Interventions:Sensory [...] Supporting Document(s ) ID Date Data Source [id number] 12/07/2019 12:24:47 PM EDT [facility] Daily Progress NoteAdmit Date: Hospital day: [...] injection 40 mg 40 mg SubCUTA neous V11UQxhghsgmc:Patient Vitals for the past 8 hrs: BP Temp Pulse Resp BjD52612/06 0956 147/86 98.7 F (37.1 C) 95 [...] initial encounter (12/05/2019)Active Problems: Encephalopathy acute (12/05/2019) Ldv-ekil-galkmwq adve rse reaction to medication (12/05/2019)Plan:To increase activity, diet,klonopin. Start Losartan Name Value Range Interpretation Code Description Data Melain rce(s) Supporting Document(s ) ID Date Data Source [id number] 12/07/2019 10:13:28 AM EDT [facility] LTM EEG manager supply chain planning DC'd per Dr. Jacob. Name Value Range Interpretation Code Description Data Melani rce(s) Supporting Document(s ) ID Date Data Source [id number] 12/07/2019 10:08:27 AM EDT [facility] - [facility] [place], [place] [address]JAREFFF: MAXWELL BRAYMRN: [id number]: [id number]#: [id number] DATE: 12/05/2019LONG TERM MONITORING VIDEO YIELD LOSS INSPECTOR: Riky Rodriguez HISTORY: The patient is a [...] montages. Digital analysis was performed employing an CENTERSONIC neuralnetwork program with parameterization and statistical analysi s. Analysis toolsutilized include compressed spectral array (CSA), XL spike detectors , and XLevent detector. Please note that the reading physician had access to review t hedata throughout the recording and a daily report was generated on each day ofthe r ecording. To eliminate confusion from the electronic medical record, thedabriseyda paulao rts were consolidated into one full report. Patient managementdecisions were made in real time during the course of the recording as deemedappropriate.BACKGROUND ACTIVITY : The awake record is well organized and symmetric, andconsists primarily of high amplitude beta with admixed alpha frequencies.A 7-7.5 Hz posterior dominan t rhythm is seen, that attenuates with eye opening.There was dymn-lz-vbfgopln gener alized background slowing.There was no clear focal slowing.ACTIVATION TECHNIQUES: Ph otic stimulation and hyperventilation were notperformed.SLEEP: During drowsiness, there is mild attenuation and slowing of thebackground rhythm. There was normal sleep seen including symmetric vertexwaves, sleep spindles, and K-complexes.OTHER AC TIVITY: There were no clear epileptiform discharges and no seizures orclinical ev ents recorded.DIGITAL ANALYSIS: Variable spectral pattern without significant lef j-og-xykbasbiqnmbyhhz. Spikes were artifact in nature.DECEMBER 06 DAILY [...] the awake and asleep states due to lzsg-hb-fnazfknn diffuse cerebraldysfunc tion that improves to mild over the course of the recording. TRENT JACOB, MDDD: #12/06/2019 10:21:35/SS /[id number]/[id number] #: [id number] / [id number] Name Value Range Interpretation Code Description Data [facility] rce(s) Supporting Document(s ) ID Date Data Source [id number] 12/07/2019 07:45:20 AM EDT [facility] Bedside and Verbal shift change report cristi Dove RN (3Loria) (oncomingnurse) by Vy Green RN (offgoing nurse). Report included the following information SBAR, Kardex, MARand Recent Results. Name Value Range Interpretation Code Description Data [facility] rce(s) Supporting Document(s ) ID Date Data Source [id number] 12/07/2019 07:22:41 AM EDT [facility] All leads and head wrapping intact. Day 2 LTM complete. Awaiting instructions tocontinue for day 3 or DC. Name Value Range Interpretation Code Description Data [facility] rce(s) Supporting Document(s ) ID Date Data Source [id number] 12/07/2019 05:19:11 AM EDT [facility] Name Value Range Interpretation Description Data Sup porting Code Source(s) Document(s ) Sodium 138 136-145 [employer] [Moles/volume] mmol/L Buddhist in Serum or Hospital Plasma Potassium 3.5 3.5-5.1 [facility] [Moles/volume] mmol/L Buddhist in Serum or Hospital Plasma Chloride 106 98-107 [facility] [Moles/volume] mmol/L Buddhist in Serum or Hospital Plasma Carbon 27 21-32 [facility] dioxide, total mmol/L Buddhist [Moles/volume] Hospital in Serum or Plasma Anion gap in 10 10-20 [facility] Serum or mmol/L Buddhist Plasma Hospital Glucose 140 74-106 Above high normal [facility] [Mass/volume] mg/dL Buddhist in Serum or Hospital Plasma Urea nitrogen 19 mg/dL 7-18 Above high normal [facility] [Mass/volume] Buddhist in Serum or Hospital Plasma Creatinine 0.94 0.70-1.3 [facility] [Mass/volume] mg/dL 0 Buddhist in Serum or Hospital Plasma Glomerular >60 [facility] - Good filtration Buddhist rate/1.73 sq M Hospital predicted among blacks [Volume Rate/Area] in Serum or Plasma by Creatinine-bas ed formula (MDRD) Glomerular >60 [facility] - Good filtration Buddhist rate/1.73 sq M Hospital predicted among non-blacks [Volume Rate/Area] in Serum or Plasma by Creatinine-bas ed formula (MDRD) (NOTE)Estimated GFR is calculated using the Modification of Diet in RenalDisease (MDRD) Study equation, reported for both Americans(GFRAA) and non- Americans (GFRNA), and normalized to 1.7 6b0gcyu surface area. The physician must decide which value applies tothe patient . The MDRD study equation should only be used inindividuals age 18 or older. It has no t been validated for thefollowing: women, patients with serious comorbid co nditions,or on certain medications, or persons with extremes of body size,muscl e mass, or nutritional status. Calcium [Mass/volume] in Serum 9.1 mg/dL 8.5-10.1 [facility] - Good Buddhist or Plasma Hospital ID Date Data Source [id number] 12/06/2019 08:12:24 PM [facility]T [facility] change report cristi Loyd RN (oncoming nurse) Estephania Wakefield RN (offgoing nurse). Report included the followinginformation SBAR, Kardex, MAR, Recent Results, and Med Rec Status. Name Value Range Interpretation Code Description Data Melani rce(s) Supporting Document(s ) ID Date Data Source [id number] 12/06/2019 04:57:12 PM EDT [facility] General Daily Progress NoteAdmit Date: Hospital [...] (LOVENOX) injection 40 mg 40 mg SubCUTAneous O27TAzugztizb:Patient Vi tals for the past 8 hrs: BP Temp Pulse Resp VhH65612/06/19 1547 (!) 164/100 99.6 F (3 7.6 [...] Time: 12/06/19 4:25 AMResult Value Ref Range [place] level 1.09 0.6 - 1.2 MMOL/L Xr [...] initial encounter (12/05/2019)Active Problems: Encephalopathy acute (12/05/2019) Gvs-xiko-zzfpbcp adve rse reaction to medication (12/05/2019)Plan:To reduce iv fluids, repeat lasix Name Value Range Interpretation Code Description Data Melani rce(s) Supporting Document(s ) ID Date Data Source [id number] 12/06/2019 04:14:48 PM EDT [facility] - [facility] Psychiatry Consult NoteSubjective:Patien t: Maxwell Bray Age: 49 y.o. : [...] of morbidity or mortality cardiac cath at [facility] approx 6-8 months ago Other unknown and unspecified cause of morbidity or mortal ity concussions Other unknown and unspecified cause of morbidity or mortal ity "periodic disorientation" Other unknown and unspecified cause of morbidity or mo rtality anxiety Psychiatric disorder anxiety, depressionPsychiatric History: Patient reported he was receiving care in outpatient from [facility] psychiatrist marly faust did not discuss details.Substance Use History:Social HistorySubstance and Sexu al ActivityAlcohol Use No Frequency: Never Drinks per session: 1 or 2 Binge freque ncy: NeverSocial HistorySubstance and Sexual ActivityDrug Use NoObjective:Vitals/Phys ical Assessment:Patient Vitals for the past 8 hrs: BP Temp Pulse Resp EnS80712/06/19 081 3 (!) 153/94 100.4 F (38 [...] encounter (12/05/2019)A ctive Problems: Encephalopathy acute (12/05/2019) Fuo-vqky-dvenlop adverse re action to medication (12/05/2019)Plan:No current [...] Supporting Document(s ) ID Date Data Source [id number] 12/06/2019 01:18:16 PM EDT [facility] - [facility] Trent Jacob MD[address], [address] [place] [address] [phone].ERN Progress NotePatient: Maxwell Bray Sex: male DOA: 12/05/2019Date of : 1970 Age: 49 y.o. LOS: LOS: 1 daySubjective:Awake, alert, tremulous, no current complaintsEEG w/ mild to mod gen slowREVIEW OF SYSTEMS: NO CP, SOB, N,V,D, F,CCurrent Facility-Administered MedicationsMedication Dose Route Frequen cy 0.9% sodium chloride infusion 125 mL/hr IntraVENous CONTINUOUS enoxaparin (LOVE NOX) injection 40 mg 40 mg SubCUTAneous X99WIvhgftnvs:Visit VitalsBP (!) 153/94 (BP 1 Location: Left arm, BP Patient Position: At rest)Pulse 100Temp 100.4 F (38 C)Resp 18Ht 5' 5.75" (1.67 m)Wt 300 lb (136.1 kg)SpO2 96%BMI 48.79 kg/m Body mass index is 48.79 kg/m .Patient Vitals for the past 24 hrs: Temp Pulse Resp BP IfG52912/06/19 0813 100.4 F (38 C) 100 18 [...] past 24 hours were reviewed both during [facility] daily workflow process and at the time notated as "note time" in [facility]. (It is not time stamped separately [...] Time: 12/06/19 4:25 AMResult Value Ref Range [place] level 1.09 0.6 - 1.2 MMOL/LCT Results (most recent):Results from Hospital [facility] encounter on 12/05/19CT HEAD WO CONT Narrative CT HEAD W/O CONTRASTPRIOR: Steven tiple: Most recent October 29, 2019: "No [...] the brain.MRI Results (most recent):Results from Hospital [facility] encounter on 12/05/19MRI BRAIN WO CONT Narrative [...] Seizure disorder ([facility]) G40.909 Spells [id number] Severe ob esity ([facility]) E66.01 Depression F32.9 Anxiety F41.9 Bipolar disorder ([facility]) F31.9 Dep ressive disorder F32.9 Status post gastric bypass for obesity Z98.84 Morbid obesit y ([facility]) E66.01 Mixed anxiety and depressive disorder F41.8 Vitamin D deficiency E55 .9 Bipolar disorder with severe depression ([facility]) F31.4 Encephalopathy acute G93.40 Adverse drug reaction, initial encounter T50.905A Wfo-bmrm-ntlsvnj adverse react ion to medication T88.7XXA49 year [...] Supporting Document(s ) ID Date Data Source [id number] 12/06/2019 11:43:34 AM EDT [facility] LTM study day 1 complete. All leads and head wrapping intact. Day 2 LTM studycommenced and LIVE via WIFI on [facility]. 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 CM attempted toreach hi m via room phone and was unsuccessful. CM spoke with the spouses ,Blanca at [phone]. Prior to hospitalization patient was independent of allADL's and ambulati ng prior to this incident. During this most recent episode,patient became lethargic with increasing confusion, weakness, and experiencingtremors in his legs. Karsten faust has a walker and has been out of work sinceDecember 2019 due to his depression .CM discussed advance directives. Patient has no living will and health careproxy. She wishes for him to remain a full code.CM discussed discharge planning. PT will ev aluate for discharge needs. Familyamenable to services. Open for SNF. [facility] like [facility]. CM CCLINKD. CM willfollow.Patient Information:Patients Preferred Name: Gillian anPatient Arrived Via: StretcherInformation Obtained From: Spouse(Spouse Blanca)Prachi [...] NoPCP: Ritika Canas MDAdmitting Provider: Ritika lobo MDHENRICO [facility] HAMMER RUNNER: N/APayor: P ayor: [facility] HEALTH PLAN / Plan: [facility] HEALTH PLAN /Product Type: [facility] /Secondary Payor : @AudioscribeINSGROUPNAME@Encephalopathy acute [G93.40]Psi-fnjp-xcjozsg adverse reactio n to medication [T88.7XXA]Mxc-wkrg-bqjajav adverse reaction to medication [T88.7XXA ]Patient Active Problem ListDiagnosis Code H/O gastric bypass Z98.84 Insomnia G47. 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 Seizure disorder (HCC) G40.909 Spells I [id number] Severe obesity (HCC) E66.01 Depression F32.9 Anxiety F41.9 Bipolar disorder (HCC) F31.9 Depressive disorder F32.9 Status post gastric bypass for ob esity Z98.84 Morbid obesity (HCC) E66.01 Mixed anxiety and depressive disorder F4 1.8 Vitamin D deficiency E55.9 Bipolar disorder with severe depression (HCC) F3 1.4 Encephalopathy acute G93.40 Adverse drug reaction, initial encounter T50.905 A Kjt-fdle-gywfryy adverse reaction to medication T88.7XXASocial HistorySubstan ce and Sexual ActivityAlcohol Use No Frequency: Never Drinks per session: 1 or 2 Binge frequency: NeverNumber of stairs into patient home:DME:Cohabitants:Abuse Screen:Physical Abuse/Neglect: DeniesSexual Abuse: DeniesVerbal Abuse: DeniesOther A buse/Issues: DeniesINSURANCE INFORMATION: (Verification)Primary Notes:Secondary No kenton:Workmen's Comp Notes:No-Fault Notes:SSD Notes:Un-Insured Notes:[facility] Notes:Current Functioning:Language barriers: Notes:Und erstanding [...] Supporting Document(s ) ID Date Data Source [id number] 12/06/2019 07:40:06 AM EDT [facility] 8: Patient found in bed resting quiet ly. [...] Report included the followinginformation SBAR, ED Summary, Joe NORTON and Recent Results. Name Value Range Interpretation Code Description Data Melani rce(s) Supporting Document(s ) ID Date Data Source [id number] 12/06/2019 05:07:27 AM EDT [facility] Name Value Range Interpretation Description Data Sup porting Code Source(s) Document(s ) [place] 1.09 0.6-1.2 [facility] [Moles/volu MMOL/L Buddhist me] in Hospital Serum or Plasma ID Date Data Source [id number] 12/05/2019 07:59:09 PM EDT [facility] Name Value Range Interpretation Description Data Sup porting Code Source(s) Document(s ) Ammonia 16 UMOL/L 11-32 [facility] [Moles/volum Buddhist e] in Plasma Hospital ID Date Data Source [id number] 12/05/2019 07:56:38 PM EDT [facility] Name Value Range Interpretation Description Data Sup porting Code Source(s) Document(s ) Lactate 0.9 0.4-2.0 [facility] [Moles/volu MMOL/L Buddhist me] in Hospital Serum or Plasma ID Date Data Source [id number] 12/05/2019 06:42:57 PM EDT [facility] LTM EEG manager supply chain planning complete. Day 1 LTM comm enced and LIVE via WIFI on 06/28 Name Value Range Interpretation Code Description Data Melani rce(s) Supporting Document(s ) ID Date Data Source [id number] 12/05/2019 06:07:34 PM EDT [facility] [id number] [facility] InstallMonetizer [facility] 4T [employer] [address] [facility] [address] [phone] Maxwell Bray (Male) [id number] I 3 ED Dispo:ADMIT Chief Complaint: Fall, Fatigue Diagnosis: Altered mental status, unspecified altered mental status type [] Adverse drug reaction, initial encounter [] Encephalopathy acute [] Atw-csox-ukughox adverse effect of medication, subsequent encounter [] Bipolar disorder with severe depression (HCC) [] H/O gastric bypass [] Curre nt Providers: Attending: Patsy Manzo; Kristy Otero; Cristi Canas Consulting Provider: Jose Centeno; Cristi Canas; Javier Khan; Cristi Fraizer Primary Nurse: BAILEY GambleN: [id number] [phone] [employer] [phone] - [facility] Ed Med[employer] MrnMRN: [id number] [employer] [id number] - [facility] [employer] Age SexDOB 1970 AGE 49 SEX Male Primary Care Provider: Ritika Canas MD Phone: Allergies: (No Known Allergies)Date Reviewed: 12/05/2019Reviewed by: Ritika Canas MD - Review CompleteED Provider Notes: All notesHNO ID: [id number]: Julio Manzo MDService: EMERGENCYAuthor Type: Physici anFiled: [...] of morbidity or mortality cardiac cath at [facility] approx 6-8 months ag o Other unknown [...] week Gets together: Once a week Attends temple service: More than 4 times per year [...] visualiz ation of images, tracings, or specimens: yesProAnais Monahan Dennis, MD, reviewed the patient's past history, allergies andhome medications as documented in the nursing chart.Labs:Recent Results (from the past 12 hour(s))EKG, 12 LEAD, INITIAL Collection Time: 12/05/19 11:41 AMResult Value Ref Range Ventricular Rat e 102 BPM Atrial Rate 102 BPM P-R Interval 174 ms QRS Duration 104 ms Q-T Interval 395 ms QTC Calculation (Bez et) 515 ms Calculated P Ehrenberg 40 degrees Calculated R Ehrenberg 41 degrees Calculated T Ehrenberg 147 degrees Diagnosis Sinus tachycardiaProbable left atrial [...] Time: 12/05/19 12:38 PMResult Value Ref Range [place] level 1 .53 (HH) 0.6 - 1.2 [...] surgical mask on upon entering the room: yesProrubens grimm, including:Surgical mask: yesN95 mask: yesEye Protection: yesGloves: yesGown: yesPatient was seen during Covi d pandemic which may have affected standardof care.Final Impression/Diagnosis:Encounter Diagnoses ICD-10-CM ICD-9-CM1. Altered mental status, unspecified altered mental status type R41.98443.97Patient c ondition at time of disposition: StableI have reviewed the following home medications:Prior to Admission medi cationsMedication Sig Start Date End Date Taking? Authorizing ProviderrisperiDONE (RisperDAL) 2 mg tab let Take 1 Tab by mouth daily. 12/04/19Ritika Canas MDamitriptyline (ELAVIL) 100 mg tablet 200 mg. 11/12/19 Provider,DaniloVraylar 3 mg capsule Take 6 mg by mouth nightly. Prescription is 6 mgcapsule Indications : bipolar depression 09/03/19 Provider, Historicallithium carbonate 150 mg capsule Take 300 mg by mouth two (2) times daily(with meals). Other, Phys, MDclonazePAM (KLONOPIN) 2 mg tablet Take 1 mg by mouth two (2) linda es dailyas needed. Other, Paul, MagalyoJulio MD I, Joseph Silber, am serving as a scribe to document servi jaxon personallyperformed by Julio Manzo MD based on my observation and the provider'sstatements to me.Anais Vasquez D ennis, MD, attest that the person(s) noted above, acting as myscribe(s) noted above, has observed my performance of the services and hasdocumented them in accordance with my direction. I have personallyreviewed the above information and have ordered and reviewed thediagnostic studies, unless otherwise noted.+ED Orde rs [id number] DOLLY DRIVER - ED ONLY [#[id number]] Priority: STAT Class: Hospital Performe d Standing Order Information Remaining Occurrences:0/1 Interval:Continuous Last release d:12/05/2019 Released orders: SunDec 05, 2019 11:20 AM by: JULIO MANZO Type: -> Bedside N [id number] PULSE OXIMETRY CONTINUOUS [#[id number]] Priority: STAT Class: Hospital Performe d Standing Order Information Remaining Occurrences:0/1 Interval:CONTINUOUS Last release d:12/05/2019 Released orders: SunDec 05, 2019 11:20 AM by: JULIO MANZO [id number] PULSE OXIMETRY SPOT CHECK [#[id number]] Priority: STAT Class: Hospital Performed Standing Order Inf ormation Remaining Occurrences:0/1 Interval:ONE TIME Last released:12/05/2019 Release d orders: SunDec 05, 2019 11:20 AM by: JULIO MANZO [id number] OBTAIN OLD EKG [ #[id number]] Priority: Routine Class: Hospital Performed Standing Order Information Remainin g Occurrences:0/1 Interval:ONE TIME Last released:12/05/2019 Released orders : SunDec 05, 2019 11:20 AM by: JULIO MANZO [id number] DOLLY DRIVER - ED ONLY [# [id number]] Priority: STAT Class: Hospital Performed Type: -> Bedside Released on: 12/05/2019 11:20 AM [id number] PULSE OXIMETRY CONTINUOUS [#[id number]] Priority: STAT Class: Hospital Performe d Released on: 12/05/2019 11:20 AM [id number] PULSE OXIMETRY SPOT CHECK [#[id number]] Priori ty: STAT Class: Hospital Performed Released on: 12/05/2019 11:20 AM [id number] OBTAIN OLD EKG [#[id number]] Priority: STAT Class: Hospital Performed Released on: 12/05/2019 11:20 AM [id number] VITAL SIGNS PER UNIT ROUTINE [#[id number]] Priority: STAT Class: Hospital Performed Stand ing Order Information Remaining Occurrences:0/1 Interval:CONTINUOUS Last released :12/05/2019 Released orders: SunDec 05, 2019 2:41 PM by: RITIKA CANAS Comment:More frequent ly if Indicated. [id number] BEDREST, COMPLETE [#[id number]] Priority: STAT Class: H ospital Performed Standing Order Information Remaining Occurrences:0/1 Interval:CONTIN UOUS Last released:12/05/2019 Released orders: SunDec 05, 2019 2:41 PM by: RITIKA CANAS [id number] NOTIFY PROVIDER: VITAL SIGNS CHANGES [#[id number]] Priority: STAT Class: Hospital Performe d Standing [...] Less than 120 ml in 4 hours [id number] APPLY/MAINTAIN SEQUENTIAL COMPRESSIO* [# [id number]] Priority: STAT Class: Hospital Performed Standing Order Information Remaining Occurre nces:0/1 Interval:CONTINUOUS Last released:12/05/2019 Released orders: SunDec 05, 2019 2:41 PM by: RITIKA CANAS [id number] VITAL SIGNS PER UNIT ROUTINE [#[id number]] Priorit y: STAT Class: Hospital Performed Comment:More frequently if Indicated. Released on: 12/05/2019 2 :41 PM [id number] BEDREST, COMPLETE [#[id number]] Priority: STAT Class: Hospital Performe d Released on: 12/05/2019 2:41 PM [id number] NOTIFY PROVIDER: VITAL SIGNS CHANGES [#[id number]] Priority: STAT Class: Hospital Performed Temp -> [...] carmen rs Released on: 12/05/2019 2:41 PM [id number] APPLY/MAINTAIN SEQUENTIAL COMPRESSIO* [#[id number]] P riority: STAT Class: Hospital Performed Released on: 12/05/2019 2:41 PM [id number] RT--OXYGEN CANNULA [#[id number]] Priority: STAT Class: Hospital Performed Standing Order Information Remaining Occurrences:0/1 Interval:CONTINUOUS Last released:12/05/2019 Released o rders: SunDec 05, 2019 11:20 AM by: JULIO MANZO LPM -> 2 Indications for O2? -> CHEST PAIN [id number] RT--OXYGEN CANNULA [#[id number]] Priority: STAT Class: Hospital Performe d LPM -> 2 Indications for O2? -> CHEST PAIN Released on: 12/05/2019 11:20 AM [id number] DIET NPO [#[id number]] Canceled Priority: STAT Class: Hospital Performed Cancele d by RITIKA CANAS on SunDec 05, 2019 2:41 PM Reason: None Comment: Standing Order Information Remaining Occurrences:0/1 Interval:DIET EFFECTIVE NOW Last released:12/05/2019 Release d orders: SunDec 05, 2019 11:20 AM by: JULIO MANZO NPO options: -> With Meds [id number] DIET NPO [#[id number]] Canceled Priority: STAT Class: Hospital Performed Cancele d by RITIKA CANAS on SunDec 05, 2019 2:41 PM Reason: None Comment: NPO options: -> With Meds Released on: 12/05/2019 11:20 AM [id number] DIET NPO [#[id number]] Priority: S TAT Class: Hospital Performed Standing Order Information Remaining Occurrences:0/1 Inter haile:DIET EFFECTIVE NOW Last released:12/05/2019 Released orders: SunDec 05, 2019 2:41 PM by: RITIKA CANAS [id number] DIET NPO [#[id number]] Priority: STAT Class: H ospital Performed Released on: 12/05/2019 2:41 PM [id number] SALINE LOCK IV [#[id number]] Priority: STAT Class: Hospital Performed Standing Order Information Remaining Occurrences:0 /1 Interval:ONE TIME Last released:12/05/2019 Released orders: SunDec 05, 2019 11:20 AM by: JULIO MANZO [id number] SALINE LOCK IV [#[id number]] Priority: STAT Cl ass: Hospital Performed Released on: 12/05/2019 11:20 AM [id number] METABOLIC PANEL, COMPREHENSIVE [# [id number]] Priority: STAT Class: ER Collect Standing Order Information Remaining Occurrences:0 /1 Interval:ONE TIME Last released:12/05/2019 Released orders: SunDec 05, 2019 11:20 AM by: JULIO MANZO [id number] CBC WITH AUTOMATED DIFF [#[id number]] Priority: STAT Cl ass: ER Collect Standing Order Information Remaining Occurrences:0/1 Interval:ONE TI ME Last released:12/05/2019 Released orders: SunDec 05, 2019 11:20 AM by: JULIO MANZO [id number] TROPONIN I [#[id number]] Priority: STAT Class: ER Collect Sta nding Order Information Remaining Occurrences:0/1 Interval:ONE TIME Last released:0 12/05/2019 Released orders: SunDec 05, 2019 11:20 AM by: JULIO MANZO [id number] MAGNESIUM [#[id number]] Priority: STAT Class: ER Collect Standing Order Information Remaining Occurrences:0/1 Interval:ONE TIME Last released:12/05/2019 Released orders : SunDec 05, 2019 11:20 AM by: JULIO MANZO [id number] LACTIC ACID [#[id number]] Priority: STAT Class: ER Collect Standing Order Information Remaining Occurrences:0/2 Interval:NOW THEN EVERY 4 HOURS Last released:12/05/2019 Released orders: SunDec 05, 2019 12:06 PM by: JULIO MANZO SunDec 05, 2019 11:20 AM by: JULIO MANZO [id number] PROTHROMBIN TIME + INR [#[id number]] Priority: STAT Class: ER Collect Standing Order Information Remain ing Occurrences:0/1 Interval:ONE TIME Last released:12/05/2019 Released orders : SunDec 05, 2019 11:20 AM by: JULIO MANZO [id number] URINALYSIS W/ RFLX MICROSCOPIC [# [id number]] Priority: STAT Class: ER Collect Standing Order Information Remaining Occurrences:0 /1 Interval:ONE TIME Last released:12/05/2019 Released orders: SunDec 05, 2019 11:20 AM by: JULIO MANZO [id number] METABOLIC PANEL, COMPREHENSIVE [#[id number]] Priority: STAT Cl ass: ER Collect Specimen Source: Plasma Specimen Collected: 12/05/2019 12:38 PM Resulting Agency: [facility] Test ID: MPL Released on: 12/05/2019 11:20 AM [id number] CBC WITH A UTOMATED DIFF [#[id number]] Priority: STAT Class: ER Collect Specimen Source: Whole Blood S pecimen Collected: 12/05/2019 12:38 PM Resulting Agency: [facility] Test ID: CBCXA Released on: 12/05/2019 11:20 AM [id number] TROPONIN I [#[id number]] Prior ity: STAT Class: ER Collect Specimen Source: Plasma Specimen Collected: 12/05/2019 12:38 PM Resultin g Agency: [facility] Test ID: TROIP Released on: 12/05/2019 11:20 AM [id number] 2 MAGNESIUM [#[id number]] Priority: STAT Class: ER Collect Specimen Source : Plasma Specimen Collected: 12/05/2019 12:38 PM Resulting Agency: [facility] Test ID: MGPL Released on: 12/05/2019 11:20 AM [id number] LACTIC ACID [#[id number]] P riority: STAT Class: ER Collect Specimen Source: Plasma Specimen Collected: 12/05/2019 12:40 PM Resultin g Agency: [facility] Test ID: LAC Released on: 12/05/2019 11:20 AM [id number] PROTHR OMBIN TIME + INR [#[id number]] Priority: STAT Class: ER Collect Specimen Source: Plasma Spe cimen Collected: 12/05/2019 12:38 PM Resulting Agency: [facility] Test ID: APTHR R eleased on: 12/05/2019 11:20 AM [id number] URINALYSIS W/ RFLX MICROSCOPIC [#[id number]] Prior ity: STAT Class: ER Collect Specimen Source: Urine Specimen Collected: 12/05/2019 2:45 PM Resultin g Agency: [facility] Test ID: UA Released on: 12/05/2019 11:20 AM [id number] LITHIU M [#[id number]] Priority: STAT Class: ER Collect Standing Order Information Remaining Occurrences:0/1 Interval:ONE TIME Last released:12/05/2019 Released orders : SunDec 05, 2019 11:40 AM by: MECHELLE GAMBLE [id number] LITHIUM [# [id number]] Priority: STAT Class: ER Collect Specimen Source: Serum Specimen Collected: 12/05/2019 12 :38 PM Resulting Agency: [facility] Test ID: LI Released on: 12/05/2019 11:40 AM [id number] LITHIUM [#[id number]] Canceled Priority: STAT Class: ER Collect Canceled by TENA, [facility] [place] on SunDec 05, 2019 11:42 AM Reason: Other Comment: Duplicate Standing Order Information Remaining Occurrences:0/1 Interval:ONE TIME Last released:0 12/05/2019 Released orders: SunDec 05, 2019 11:41 AM by: ANAIS JULIO [id number] LITHIUM [#[id number]] Canceled Priority: STAT Class: ER Collect Specimen Collected: 12/05/2019 11:45 AM Resulting Agency: [facility] Test ID: LI Canceled by TENA, [facility] [place] on SunDec 05, 2019 11:42 AM Reason: Other Comment: Duplicate Rele ased on: 12/05/2019 11:41 AM [id number] LACTIC ACID [#[id number]] Priority: STAT Cl ass: ER Collect Resulting Agency: [facility] Test ID: LAC Released on: 12/05/2019 12:06 PM [id number] AMMONIA [#[id number]] Priority: Routine Class: ER Collect Specimen Source: Blood Standing Order Information Remaining Occurrences:0/1 Interval:ONE TI ME Last released:12/05/2019 Released orders: SunDec 05, 2019 3:19 PM by: Javier KHAN [id number] AMMONIA [#[id number]] Priority: STAT Class: ER Collect Spe cimen Source: Blood Resulting Agency: [facility] Test ID: NH3 Released on: 12/05/2019 3:19 PM [id number] BILIRUBIN, CONFIRM [#[id number]] Priority: Routine Class : ER Collect Resulting Agency: [facility] Test ID: ICTO Standing Order Informat ion Remaining Occurrences:0/1 Released orders: SunDec 05, 2019 2:45 PM by: Automatic B atch Process [id number] BILIRUBIN, CONFIRM [#[id number]] Priority: Routine Class : ER Collect Specimen Source: Miscellaneous sample Specimen Collected: 12/05/2019 2:45 PM Resultin g Agency: [facility] Test ID: ICTO Released on: 12/05/2019 2:45 PM [id number] EKG, 12 LEAD, INITIAL [#[id number]] Priority: STAT Class: Hospital Performed Stand ing Order Information Remaining Occurrences:0/1 Interval:ONE TIME Last released:0 12/05/2019 Released orders: SunDec 05, 2019 11:20 AM by: JULIO MANZO Reason for Exam: -> Chest Pain [id number] EKG, 12 LEAD, INITIAL [#[id number]] Priority: STAT Class: H ospital Performed Resulting Agency: [facility] Test ID: [id number] Reason for Exam: -> Chest Pain Releas ed on: 12/05/2019 11:20 AM [id number] XR CHEST PORT [#[id number]] Priority: STAT Clas s: Hospital Performed Standing Order Information Remaining Occurrences:0/1 Interval:ONE TI ME Last released:12/05/2019 Released orders: SunDec 05, 2019 11:20 AM by: JULIO MANZO Reason for Exam -> Chest Pain [id number] CT HEAD WO CONT [#[id number]] Priority: S TAT Class: Hospital Performed Standing Order Information Remaining Occurrences:0/1 Inter haile:ONE TIME Last released:12/05/2019 Released orders: SunDec 05, 2019 11:20 AM by: JULIO MANZO Reason for Exam -> ams [id number] XR PELV AP ONLY [#[id number]] Priority: S TAT Class: Hospital Performed Standing Order Information Remaining Occurrences:0/1 Inter haile:ONE TIME Last released:12/05/2019 Released orders: SunDec 05, 2019 11:20 AM by: JULIO MANZO Reason for Exam -> fall [id number] XR CHEST PORT [#[id number]] Priority: STAT Class: Hospital Performed Specimen Collected: 12/05/2019 12:21 PM Resulting Agency: [facility] Test ID: [id number] Reason for Exam -> Chest Pain Released on: 12/05/2019 11:[id number] HEAD WO CONT [#[id number]] Priority: STAT Class: Hospital Performed Specimen Collected : 12/05/2019 12:43 PM Resulting Agency: [facility] Test ID: [id number] Reason for Exam -> ams R eleased on: 12/05/2019 11:20 AM [id number] XR PELV AP ONLY [#[id number]] Priority: STAT Class: Hospital Performed Specimen Collected: 12/05/2019 12:23 PM Resulting Agency: [facility] Test ID : [id number] Reason for Exam -> fall Released on: 12/05/2019 11:20 AM [id number] MRI BRAIN WO CONT [#[id number]] Priority: STAT Class: Hospital Performed Standing Order Information Remaining Occurrences:0/1 Interval:ONE TIME Last released:12/05/2019 Released orders : SunDec 05, 2019 3:19 PM by: JOSE KHAN Reason for Exam -> ams [id number] MRI BRA IN WO CONT [#[id number]] Priority: STAT Class: Hospital Performed Specimen Collected : 12/05/2019 5:03 PM Resulting Agency: [facility] Test ID: [id number] Reason for Exam -> ams R eleased on: 12/05/2019 3:19 PM [id number] CULTURE, BLOOD [#[id number]] Priority: Routi ne Class: ER Collect Specimen Source: Blood Standing Order Information Remaining Occurrences:0 /1 Interval:ONE TIME Last released:12/05/2019 Released orders: SunDec 05, 2019 11:20 AM by: JULIO MANZO [id number] CULTURE, BLOOD [#[id number]] Priority: STAT Cl ass: ER Collect Specimen Source: Blood Standing Order Information Remaining Occurrences:0/1 I nterval:ONE TIME Last released:12/05/2019 Released orders: SunDec 05, 2019 11:20 AM by: JULIO MANZO [id number] CULTURE, BLOOD [#[id number]] Priority: STAT Class: E R Collect Specimen Source: Blood Specimen Collected: 12/05/2019 12:38 PM Resulting Agency: [facility] Test ID: HBCS Released on: 12/05/2019 11:20 AM [id number] CULTURE, BLOOD [#[id number]] Priority: STAT Class: ER Collect Specimen Source: Blood Specimen Collected: 12/04 12:30 PM Resulting Agency: [facility] Test ID: HBCS Released on: 12/05/2019 11:20 AM CEFTRIAXONE 1 GRAM IVPB MBP [#[id number]] Priority: STAT Class: Normal An tibiotic Indications -> Sepsis of Unknown Etiology SODIUM CHLORIDE 0.9 % IV [#[id number]] Priority: STAT Class: Normal SODIUM CHLORIDE 0.9 % IV [#[id number]] Priority : STAT Class: Normal ENOXAPARIN 40 MG/0.4 ML SUB-Q SYRINGE [#[id number]] Priority: STAT Class: N ormal ENOXAPARIN 40 MG/0.4 ML SUB-Q SYRINGE [#[id number]] Priority: STAT Class: Normal FUROSEMIDE 10 MG/ML IJ SOLN [#[id number]] Priority: STAT Class: Normal CON53 IP CONSULT TO PS YCHIATRY [#[id number]] Priority: STAT Class: Hospital Performed Standing Order Information Remaining Occurrences:0/1 Interval:ONE TIME Last released:12/05/2019 Released orders : SunDec 05, 2019 11:42 AM by: JULIO MANZO Reason for Consult: -> si Did you call or spea k to the consulting provider? -> No Consult To -> si CON53 IP CONSULT TO PSYCHIATRY [#[id number]] Priority: STAT Class: Hospital Performed Reason for Consult: -> si Did you call or spea k to the consulting provider? -> No Consult To -> si Released on: 12/05/2019 11:42 AM CON62 IP CON SULT TO INTERNAL MEDICINE [#[id number]] Priority: STAT Class: Hospital Performed Standing Order Inf ormation Remaining Occurrences:0/1 Interval:ONE TIME Last released:12/05/2019 Release d orders: SunDec 05, 2019 2:16 PM by: CARLA OTERO Reason for Consult: -> Altered mental st atus, Dr. Canas to admit Did you call or speak to the consulting provider? -> Yes CON62 IP CONSULT TO INTERNAL MEDICINE [#[id number]] Priority: STAT Class: Hospital Performed Reason for Consu lt: -> Altered mental status, Dr. Canas to admit Did you call or speak to the consulting provider? -> Yes Released on: 12/05/2019 2:16 PM CON53 IP CONSULT TO PSYCHIATRY [#[id number]] Priority: STAT Class: Hospital Performed Standing Order Information Remaining Occurrences:0 /1 Interval:ONE TIME Last released:12/05/2019 Released orders: SunDec 05, 2019 2:41 PM by: RITIKA CANAS Reason for Consult: -> adverse med reaction Did you call or speak to t he consulting provider? -> No Consult To -> Dr Garcia Schedule When? -> TODAY CON9 IP CONSULT TO N EUROLOGY [#[id number]] Priority: STAT Class: Hospital Performed Standing Order Information Remaining Occurrences:0/1 Interval:ONE TIME Last released:12/05/2019 Released orders : SunDec 05, 2019 2:41 PM by: RITIKA CANAS Reason for Consult: -> encephalopathy adverse drug reaction Did you call or speak to the consulting provider? -> No Consult To -> Dr Jacob Schedule When? -> TODAY CON53 IP CONSULT TO PSYCHIATRY [#[id number]] Priority: STAT Class: H ospital Performed Reason for Consult: -> adverse med reaction Did you call or speak to the consulting provider? -> No Consult To -> Dr Garcia Schedule When? -> TODAY Released on: 12/05/2019 2:41 P M CON9 IP CONSULT TO NEUROLOGY [#[id number]] Priority: STAT Class: Hospital Performe d Reason for Consult: -> encephalopathy adverse drug reaction Did you call or speak to the consulting provider? -> No Consult To -> Dr Jacob Schedule When? -> TODAY Released on: 12/05/2019 2:41 P M [id number] INITIAL PHYSICIAN ORDER: OBSERVATION* [#[id number]] Priority: Routine Class: ADT Pend Trans milvia Standing Order Information Remaining Occurrences:0/1 Interval:ONE TIME Last release d:12/05/2019 Released orders: SunDec 05, 2019 2:00 PM by: LUZ ELENA GATES Patient Class: -> OBS ERVATION Admitting Diagnosis -> Encephalopathy acute Admitting Physician -> CARLA OTERO Attending Physician -> CARLA OTERO [id number] INITIAL PHYSICIAN ORDER: OBSERVATION* [#[id number]] Priority: Routine Class: ADT Pend Transfer Patient Class: -> OBSERVATION Admitting Diagnosis -> Encephalopathy acute Admitting Physician -> CARLA OTERO Attending Physician -> CARLA OTERO Released on: 12/05/2019 2:00 PM [id number] INITIAL PHYSICIAN ORDER: INPATIENT [#[id number]] Joan renner: Routine Class: ADT Pend Transfer [...] o- n- ) Admitting Diagnosis - > Iej-eelw-sdojyqc adverse reaction to medication Admitting Physician -> RITIKA CANAS Physician -> RITIKA CANAS Estimated Length of Stay -> 5-7 Midnights Discharge Plan: -> Other (Specify) [id number] INITIAL PHYSICIAN ORDER: INPATIENT [#[id number]] Priority: Routine Class: ADT Pend Tr tejalfer Standing Order Information Remaining Occurrences:0/1 Interval:ONE TIME [...] i- o- n- ) Admitting Diagnosis -> Zlb-ltml-hwimdhb adverse reaction to medication Admitting Physician -> RITIKA CANAS Attending Physician -> MARY CANAS Estimated Length of Stay -> 5-7 Midnights Discharge Plan: -> Other (Specify) [id number] [facility] PHYSICIAN ORDER: INPATIENT [#[id number]] Priority: Routine Class: ADT Pend Transfer Status: [...] i- o- n- ) Admitting Diagnosis -> Vkk-pzdq-herrqmj adverse reaction to medication Admitting Physician -> RITIKA CANAS Attending Physician -> MARY CANAS Estimated Length of Stay -> 5-7 Midnights Discharge Plan: -> Other (Specify) Released on: 12/05/2019 2:41 PM [id number] INITIAL PHYSICIAN ORDER: INPATIENT [#[id number]] Priority: Routine Class : ADT Pend Transfer [...] o- n- ) Adm itting Diagnosis -> Xcr-rmkf-uscxyzl adverse reaction to medication Admitting Physician -> RITIKA CANAS Attending Physician -> RITIKA CANAS Estimated Length of Stay -> 5-7 Midnights Discharge Plan: -> Other (Specify) Released on: 12/05/2019 2:41 PM COD2 FULL CODE [#[id number]] Priority: STAT Class: Hospital Performed Standing Order Information Remaining Occurrences:0 /1 Interval:CONTINUOUS Last released:12/05/2019 Released orders: SunDec 05, 2019 2:41 PM by: RITIKA CANAS COD2 FULL CODE [#[id number]] Priority: STAT Cl ass: Hospital Performed Released on: 12/05/2019 2:41 PM [id number] EEG 12-26 HR W/VIDEO [# [id number]] Priority: Routine Class: Hospital Performed Standing Order Information Remaining Occurre nces:0/1 Interval:ONE TIME Last released:12/05/2019 Released orders: SunDec 04 3:19 PM by: JOSE KHAN Reason for Exam: -> ams [id number] EEG 12-26 HR W/VIDEO [#[id number]] Priority: STAT Class: Hospital Performed Resulting Agency: [facility] Test ID: NEU1 093 Reason for Exam: -> ams Released on: 12/05/2019 3:19 Maxwell Corona MR#: [id number] * Rm: [id number] 01Ht: 5' 5.75" Wt: 300 lb Code: Full Code Iso:Diagnosis:Encep halopathy acute [G93.40]Allergies: No Known Allergies -------- Current as of: 12/05/19 1807 NB=New Bag --aspirin (ASPIRIN) tablet 325 mg #[id number] Admin Amount: 1 Tab (1 x 325 mg Tab) Ordered Dose: 325 mg Route: Oral Freq: ONCE Start Date: 12/24/13 No administration times (back 96 hours, ahead 96 hours). ------diphenhydrAMINE (BENADRYL) capsule 50 mg #[id number] Admin Amount: 1 Cap (1 x 50 mg Cap) Ordered Dose: 50 mg Route: Garya l Freq: NOW Start Date: 12/24/13 No administration times (back 96 hours, ahe ad 96 hours). ------diazepam (VALIUM) tablet 5 mg #[id number] Admin Amount: 1 Tab (1 x 5 mg Tab) Ordered Dose: 5 mg Route: Oral Freq: ON CE Start Date: 12/24/13 No administration times (back 96 hours, ahead 96 hours). ------lidocaine (XYLOCAINE) 10 mg/mL (1 %) injection 1-30 mL #[id number] Admin Amount: 1-30 mL Ordered Dose: 1-30 mL Route: IntraDERMal Freq: ONCE Start Date: 12/24/13 No administration times (back 96 hours, ahead 96 hours). ------heparin (PF) 2 units/ml in NS infusion 2,000 Units #[id number] Admin Amount: 1,000 mL = 2,000 Units of 2 Units/mL Ordered Dose: 1,000 mL Ro poarch: Irrigation Freq: ONCE Start Date: 12/24/13 No administration times (back 96 hours, ahead 96 hours). ------heparinized saline 2 units/mL infusion 1,000 Units #[id number] Admin Amount: 500 mL = 1,000 Units of 2 Units/mL Ordered Dose: 500 mL Ro poarch: IntraarTERial Freq: ONCE Start Date: 12/24/13 No administration times (back 96 hours, ahead 96 hours). ------0.9% sodium chloride infusion #[id number] Ordered Dose: 75 mL/hr Route: IntraVENous Freq: CONTINUOUS Start Date: 12/24/13 Rate: 75 mL/hr Duration: No administration times (back 96 hours, ahead 96 hours). ------ioversol (OPTIRAY) 320 mg iodine/mL contrast injection 1-100 mL #[id number] Admin Amount: 1-100 mL Ordered Dose: 1-100 mL Route: IntraVENous Freq: RAD O NCE Start Date: 12/24/13 No administration times (back 96 hours, ahead 96 hours).Maxwell Bray MR#: [id number] * Rm: 441-01Ht: 5' 5.75" Wt: 300 lb Cod e: Full Code Iso:Diagnosis:Encephalopathy acute [G93.40]Allergies: No Known Allergies -------- Current as of: 12/05/19 180 NB=New Bag --gadobutrol (GADAVIST) contrast solution 1-10 mL #[id number] Admin Amount: 1-10 mL Ordered Dose: 1-10 mL Route: IntraVENous Freq: RAD O NCE Start Date: 01/13/14 No administration times (back 96 hours, ahead 96 hours). ------sodium chloride (NS) flush 5-10 mL #[id number] Admin Amount: 5-10 mL Ordered Dose: 5-10 mL Route: IntraVENous Freq: RAD ONCE Start Date: 01/13/14 No administration times (back 96 hours, ahead 96 hours). ------sodium chloride (NS) 0.9 % flush #[id number] Ordered Dose: Route: Freq: Start Date: 01/13 No administration times (back 96 hours, ahead 96 hours). ------morphine injection 2 mg #[id number] Admin Amount: 1 mL = 2 mg of 2 mg/mL Ordered Dose: 2 mg Route: IntraVENous Freq: NOW Start Date: 03/13/15 No administration times (back 96 hours, ahe ad 96 hours). ------influenza vaccine (4 yr+)(PF) (FLUCELVAX QUAD) inj ection 0.5*#[id number] Admin Amount: 0.5 mL Ordered Dose: 0.5 mL Route: IntraMUSCular Freq: PRIOR TO DISCHARGE Start Date: 03/30/16 No administration times (back 96 hours, ahead 96 hours). ------oxyCODONE-acetaminophen (PERCOCET) 5-325 mg per tablet 1 Tab #[id number] Admin Amount: 1 Tab Ordered Dose: 1 Tab Route: Oral Freq: NOW Start Date: 09/07/17 No administration times (back 96 hours, ahead 96 hours). ------barium sulfate (READICAT) 2.1 % (w/v), 2.0 % (w /w) oral suspension 9*#[id number] Admin Amount: 900 mL Ordered Dose: 900 mL Route: Oral Delgado q: RAD ONCE Start Date: 10/15/17 No administration times (back 96 hours, ahead 96 hours). ------iopamidol (ISOVUE 300) 61 % contrast injection 100 mL #[id number] Admin Amount: 100 mL Ordered Dose: 100 mL Route: IntraVENous Freq: RAD ONC E Start Date: 10/15/17 No administration times (back 96 hours, ahead 96 hours).Maxwell Bray MR#: [id number] * Rm: 441-01Ht: 5' 5.75" Wt: 300 lb Code: Full Code Iso:Diagnosis:Encephalopathy acute [G93.40]Allergies: No Known Allergies -------- Current as of: 12/05/191806 NB=New Bag --risperiDONE (RisperDAL m-tabs) disintegrating tablet 1 mg #[id number] Admin Amount: 1 Tab (1 x 1 mg Tab) Ordered Dose: 1 mg Route: Oral Freq: ONCE Start Date: 12/24/17 No administration times (back 96 hours, ahead 96 hours). ------ALPRAZolam (XANAX) tablet 2 mg #[id number] Admin Amount: 4 Tab (4 x 0.5 mg Tab) Ordered Dose: 2 mg Route: Ora l Freq: NOW Start Date: 12/24/17 No administration times (back 96 hours, ahe ad 96 hours). ------lamoTRIgine (LaMICtal) tablet 100 mg #[id number] Admin Amount: 1 Tab (1 x 100 mg Tab) Ordered Dose: 100 mg Route: Oral Delgado q: ONCE Start Date: 12/24/17 No administration times (back 96 hours, ahead 96 hours). ------OLANZapine (ZyPREXA zydis) disintegrating tablet 5 mg #[id number] Admin Amount: 1 Tab (1 x 5 mg Tab) Ordered Dose: 5 mg Route: Oral Delgado q: ONCE Start Date: 12/25/17 No administration times (back 96 hours, ahead 96 hours). ------LORazepam (ATIVAN) tablet 2 mg #[id number] Admin Amount: 4 Tab (4 x 0.5 mg Tab) Ordered Dose: 2 mg Route: Ora l Freq: NOW Start Date: 12/25/17 No administration times (back 96 hours, e ad 96 hours). ------LORazepam (ATIVAN) injection 1 mg #[id number] Admin Amount: 0.5 mL = 1 mg of 2 mg/mL Ordered Dose: 1 mg Route: Int TrevorENous Freq: NOW Start Date: 12/25/17 No administration times (back 96 hours, e ad 96 hours). ------barium sulfate (EZ PAQUE) 96 % (w/w) contrast suspension 17 6 g #[id number] Admin Amount: 176 g Ordered Dose: 176 g Route: Oral Freq: RAD ONCE Start Date: 08/02/18 No administration times (back 96 hours, ahead 96 hours). ------barium sulfate (EZ PAQUE) 96 % (w/w) contrast s uspension 176 g #[id number] Admin Amount: 176 g Ordered Dose: 176 g Route: Oral Delgado q: RAD ONCE Start Date: 08/02/18 No administration times (back 96 hours, ahead 96 hours).Luisito Maxwell donovan MR#: [id number] * Rm: 441-01Ht: 5' 5.75" Wt: 300 lb Cod e: Full Code Iso:Diagnosis:Encephalopathy acute [G93.40]Allergies: No Known Allergies -------- Current as of: 12/05/19 1807 NB=New Bag --aspirin chewable tablet 162 mg #[id number] Admin Amount: 2 Tab (2 x 81 mg Tab) Ordered Dose: 162 mg Route: Oral Freq: NOW Start Date: 08/10/19 No administration times (back 96 hours, ahead 96 hours). ------0.9% sodium chloride infusion 1,000 mL #[id number] Admin Amount: 1,000 mL Ordered Dose: 1,000 mL Route: IntraVENous Freq: ONC E Start Date: 08/16/19 Rate: 1,000 mL/hr Duration: No administration ti mes (back 96 hours, ahead 96 hours). ------methylPREDNISolone (PF) (Solu-MEDROL) injection 125 mg #[id number] Admin Amount: 2 mL = 125 mg of 125 mg/2 mL Ordered Dose: 125 mg Route: Int raVENous Freq: NOW Start Date: 08/16/19 No administration times (back 96 hours, ahe ad 96 hours). ------aspirin chewable tablet 162 mg #[id number] Admin Amount: 2 Tab (2 x 81 mg Tab) Ordered Dose: 162 mg Route: Oral Delgado q: NOW Start Date: 08/16/19 No administration times (back 96 hours, ahead 96 hours). ------haloperidoL (HALDOL) tablet 5 mg #[id number] Admin Amount: 1 Tab (1 x 5 mg Tab) Ordered Dose: 5 mg Route: Oral Delgado q: ONCE Start Date: 10/30/19 No administration times (back 96 hours, ahead 96 hours). ------cefTRIAXone (ROCEPHIN) 1 g in 0.9% sodium chloride (MBP/ADV) 50 m L M*#[id number] Admin Amount: 1 g Ordered Dose: 1 g Route: IntraVENous Freq: NOW Start Date: 12/05/19 Rate: 100 mL/hr Duration: 30 Minutes Administration linda es (back 96 hours, ahead 96 hours): 12/05/19: 1428NB -----0.9% sodium chloride infusion #[id number] Ordered Dose: 125 mL/hr Route: IntraVENous Freq: CONTINUOUS Start Date: 12/05/19 Rate: 125 mL/hr Duration: Administration times (back 96 hours, ahead 96 hours): 12/05/19: 1408Maxwell Cain MR#: [id number] * Rm : 441-01Ht: 5' 5.75" Wt: 300 lb Code: Full Code Iso:Diagnosis:Encephalopathy acute [G93. 40]Allergies: No Known Allergies -------- Current as of: 12/05/191806 NB=New Bag --enoxaparin (LOVENOX) injection 40 mg #[id number] Admin Amount: 0.4 mL = 40 mg of 40 mg/0.4 mL Ordered Dose: 40 mg Ro poarch: SubCUTAneous Freq: EVERY 24 HOURS Start Date: 12/05/19 Administration times (back 96 h [facility] 96 hours): 12/05/19: 209912/06/19: 209912/07/19: 209912/08/19: 2099 ---furosemide (LASIX) injection 20 mg #[id number] Admin Amount: 2 mL = 20 mg of 10 mg/mL Ordered Dose: 20 mg Ro poarch: IntraVENous Freq: ONCE Start Date: 12/05/19 Administration [...] on FileFollow-up Inf ormationFollow-up With:Ritika Canas MDDetails:Comments:Contact Info:[address] [place] [id number] Name Value Range Interpretation Code Description Data Melani rce(s) Supporting Document(s ) ID Date Data Source [id number] 12/05/2019 04:36:09 PM EDT [facility] The history is provided by the [...] of morbidity or mortality cardiac cath at [facility] approx 6-8 months ag o Other unknown [...] week Gets together: Once a week Attends temple service: More than 4 times per year [...] yesIndependent visualization of images, tracings, or specimens: yesProcedAnais Alvarado Dennis, MD, reviewed the patient's past [...] QTC Calculation (Bezet) 515 ms Calculated P Ehrenberg 40 degrees Calculat ed R Ehrenberg 41 degrees Calculated T Ehrenberg 147 degrees Diagnosis Sinus tachycardiaProb able left [...] Time: 12/05/19 12:38 PMResult Value Ref Range [place] level 1.53 (HH) 0.6 - 1.2 MMOL/LLACTIC [...] cardiac monitoring, CXR, and head CT. Will tile and mottle supervisor ocephin, IV fluids, and oxygen. Will consult [...] times daily asneeded. Other, Phys, MagalyoJulio MD I, Joseph Silber, am serving as [...] Supporting Document(s ) ID Date Data Source [id number] 12/05/2019 04:05:06 PM EDT [facility] [address] [place] [address] [id number] CONSULT NOTEPatient: Maxwell Bray Se x: male [...] or sensory fuentes es. Lab significant of [place] 1.53 and elevatedliver enzymes. Neurology consult ed for encephalopathy/drug adverse reaction.Past Medical History:Diagnosis Date Other unknown and unspecified cause of morbidity or mortality cardiac cath at [facility] approx 6-8 months ago Other unknown and [...] QTC Calculation (Bezet) 515 ms Calculated P Ehrenberg 40 degrees Calculated R Ehrenberg 41 degrees Calculated T Ehrenberg 147 degrees Diagnosis Sinus tachycardiaProbable left atrial [...] Time: 12/05/19 12:38 PMResult Value Ref Range [place] level 1.53 (HH) 0.6 - 1.2 MMOL/LLACTIC [...] were created on an independent workstation. 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 Seizure.Plan: Mri Brain Ammonia Monitor lithium level daily EEG - 24 hrs Seizure precautionsPaulson Gerald Flores 2019 3:19 [id number] Name Value Range Interpretation Code Description Data Melani rce(s) Supporting Document(s ) ID Date Data Source [id number] 12/05/2019 03:37:45 PM EDT [facility] sbar-q given to Ev HERNANDEZ RNAwaiting tr ansport to floor Name Value Range Interpretation Code Description Data Melani rce(s) Supporting Document(s ) ID Date Data Source [id number] 12/05/2019 03:29:57 PM EDT [facility] sbar-q given to Sheri UGALDE on floor Name Value Range Interpretation Code Description Data Melani rce(s) Supporting Document(s ) ID Date Data Source [id number] 12/05/2019 03:28:02 PM EDT [facility] History & PhysicalBrian Anam Bray is [...] h igh dose amytriptylene 200 mg nightly, [place], andVraylar 6 mg. :[place] level on prior admission therapeutic. Patient's wifecontactedthis [...] of morbidity or mortality cardiac cath at [facility] approx 6-8 months ag o Other unknown [...] week Gets together: Once a week Attends temple service: More than 4 times per year [...] 100 mg tablet 200 mg. 11/12/19 Provider, Sneha Ocasioaylar 3 mg capsule Take 6 mg by mouth nightly. Prescription is 6 mg capsuleInd ications: bipolar depression 09/03/19 Provider, Historicallithium carbonate 15 0 mg capsule Take 300 mg by mouth two (2) times daily (withmeals). Other, Phys, MDclonazePAM (KLONOPIN) 2 mg tablet Take 1 mg by mouth two (2) times daily asneeded . Other, Misti Miller Known AllergiesReview of Systems : Unable to [...] Calculati on (Bezet) 515 ms Calculated P Ehrenberg 40 degrees Calculated R Ehrenberg 41 degrees Elena culated T Ehrenberg 147 degrees Diagnosis Sinus tachycardiaProbable left atrial [...] Time: 12/05/19 12:38 PMResult Value Ref Range [place] level 1.53 (HH) 0.6 - 1.2 MMOL/LLACTIC ACID Collection Time: 12/04 12:40 PMResult Value Ref Range Lactic acid 1.1 0.4 - 2.0 MMOL/All lab results for the last 24 hours reviewed. Serun [place] level toxicAssessment/PlanPrinci pal Problem: Adverse drug reaction, initial encounter (12/05/2019) LithiumActive Prob lems: Encephalopathy acute (12/05/2019) Ivr-teqg-zeetvlb adverse reaction to med ication (12/05/2019)Neuro, and psych evaluation, hydrationGeorge MD Speedy Name Value Range Interpretation Code Description Data Melani rce(s) Supporting Document(s ) ID Date Data Source [id number] 12/06/2019 12:36:10 PM EDT [facility] Name Value Range Interpretation Description Data Sup porting Code Source(s) Document(s ) Service comment [facility] Bacteria [employer] identified in Buddhist Unspecified [facility] specimen by Culture ID Date Data Source [id number] 12/05/2019 04:18:26 PM EDT [facility] Name Value Range Interpretation Description Data Sup porting Code Source(s) Document(s ) Color of Urine YEL Abnormal (applies [facility] - to non-numeric Good results) [facility] Appearance of CLEAR Abnormal (applies [facility] - Urine to non-numeric Good results) [facility] Specific gravity 1.033 1.003-1. Above high normal [facility] - of Urine by 030 Good Refractometry [facility] pH of Urine by 5.5 4.6-8.0 [facility] - Test strip [facility] Protein 30 mg/dL NEG Abnormal (applies [facility] - [Mass/volume] in to non-numeric Good Urine by Test results) [facility] Glucose NEG [facility] - [Mass/volume] in Good Urine by Buddhist Automated test Hospital strip Ketones 15 mg/dL NEG Abnormal (applies [facility] - [Presence] in to non-numeric Good Urine by results) Buddhist Automated test [facility] strip Bilirubin.total NEG Abnormal (applies [facility] - [Presence] in to non-numeric Good Urine results) [facility] Hemoglobin NEG [facility] - [Presence] in Good Urine by Test [facility] Urobilinogen 1.0 0.2-1.0 [facility] - [Presence] in EU/dL Good Urine by Buddhist Automated test Hospital strip Nitrite NEG [facility] - [Presence] in Good Urine by Buddhist Automated test Hospital strip Leukocyte NEG [facility] - esterase Good [Presence] in Buddhist Urine by Hospital Automated test strip Leukocytes 0-5 [facility] - [Presence] in Good Urine sediment Buddhist by Light [facility] microscopy Erythrocytes 0-2 [facility] - [#/area] in Good Urine sediment Buddhist by [facility] high power field Epithelial cells 0-10 [facility] - [#/area] in Good Urine sediment Buddhist by [facility] high power field Bacteria NONE Abnormal (applies [facility] - [Presence] in to non-numeric Good Urine sediment results) Buddhist by [facility] microscopy ID Date Data Source [id number] 12/05/2019 03:26:35 PM EDT [facility] Name Value Range Interpretation Description Data Sup porting Code Source(s) Document(s ) Bilirubin NEG [facility] - Good [Presence] in Buddhist Urine by Hospital Confirmatory method ID Date Data Source [id number] 12/05/2019 02:22:27 PM EDT [facility] I spoke to Dr. Canas regarding Observation Status. Dr. Canas said patient will bemade In Patient Status today. Name Value Range Interpretation Code Description Data Melani rce(s) Supporting Document(s ) ID Date Data Source [id number] 12/05/2019 02:03:27 PM EDT [facility] SW/Psych Screener attempted to meet with Pt for MH evaluation. Pt was foundlying on stretcher with his eyes open, staring at the wall. Medical Language Specialist knows this Ptfrom previous admission to the medical floor. When ask ed if Pt rememberedwriter, Pt appeared confused, but said he did. Pt stated he fell today, doesn'tremember how he was brought to the hospital. Pt appeared to be searching for hiswords and was having difficulty speaking. Pt unclear of where he is, stating"[place]" when asked where he was and "[place]" when asked what month it was. Whenasked if Pt was exhibiting any feelings of S/I, H/I or A/V Hallucinatio ns, Ptresponded with, "No," and confirmed he has been compliant with his psychiatric edications. Medical Language Specialist conferred with ER Attending, Dr. Manzo, who states that Ptwi ll most likely be medically admitted at this time.Krystina Centeno, [facility], [facility] Name Value Range Interpretation Code Description Data Melani rce(s) Supporting Document(s ) ID Date Data Source [id number] 12/05/2019 12:53:37 PM EDT [facility] CT HEAD W/O CONTRASTPRIOR: Multiple: Mos [...] Supporting Document(s ) ID Date Data Source [id number] 12/05/2019 01:31:37 PM EDT [facility] Name Value Range Interpretation Description Data Sup porting Code Source(s) Document(s ) Lactate 1.1 0.4-2.0 [facility] - Good [Moles/volu MMOL/L [facility]] in Hospital Serum or Plasma ID Date Data Source [id number] 12/10/2019 05:19:22 AM EDT [facility] Name Value Range Interpretation Description Data Sup porting Code Source(s) Document(s ) Service comment [facility] Bacteria [facility] - [facility] identified in Buddhist Unspecified Hospital specimen by Culture ID Date Data Source [id number] 12/05/2019 02:14:34 PM EDT [facility] Name Value Range Interpretation Description Data Sup porting Code Source(s) Document(s ) [place] 1.53 0.6-1.2 Above upper panic [facility] - Good [Moles/volu MMOL/L limits [facility]] in Hospital Serum or Plasma CALLED TO AND READ BACK BYSUSI GAMBLE 1414 12/05/19 [facility] ID Date Data Source [id number] 12/05/2019 01:31:37 PM EDT [facility] Value Range Interpretation Description Data Sup porting Code Source(s) Document(s ) Troponin 0.00-0.05 [facility] - Good I.cardiac Buddhist [Mass/volume Hospital ] in Serum or Plasma [...] to 1.50 ng/mL ID Date Data Source [id number] 12/05/2019 01:31:37 PM EDT [facility] - Good [facility] Name Value Range Interpretation Description Data Sup porting Code Source(s) Document(s ) Sodium 134 136-145 Below low normal [facility] - Good [Moles/volume] mmol/L Buddhist in Serum or Hospital Plasma Potassium 3.5 3.5-5.1 [facility] - Good [Moles/volume] mmol/L Buddhist in Serum or Hospital Plasma Chloride 104 98-107 [facility] - Good [Moles/volume] mmol/L Buddhist in Serum or Hospital Plasma Carbon 26 21-32 [facility] - Good dioxide, total mmol/L Buddhist [Moles/volume] Hospital in Serum or Plasma Anion gap in 7 mmol/L 10-20 Below low normal [facility] - Go od Serum or Buddhist Plasma Hospital Glucose 127 74-106 Above high normal [facility] - Good [Mass/volume] mg/dL Buddhist in Serum or Hospital Plasma Urea nitrogen 21 mg/dL 7-18 Above high normal [facility] - Good [Mass/volume] Buddhist in Serum or Hospital Plasma Creatinine 0.94 0.70-1.3 [facility] - Good [Mass/volume] mg/dL 0 Buddhist in Serum or Hospital Plasma Glomerular >60 [facility] - Good filtration Buddhist rate/1.73 sq M Hospital predicted among blacks [Volume Rate/Area] in Serum or Plasma by Creatinine-bas ed formula (MDRD) Glomerular >60 [facility] - Good filtration Buddhist rate/1.73 sq M Hospital predicted among non-blacks [Volume Rate/Area] in Serum or Plasma by Creatinine-bas ed formula (MDRD) (NOTE)Estimated GFR is calculated using the Modification of Diet in RenalDisease (MDRD) Study equation, reported for both Americans(GFRAA) and non- Americans (GFRNA), and normalized to 1.7 1c0bzxj surface area. The physician must decide which [...] normal [facility] - Good Serum or Plasma [facility] ital Bilirubin.total 0.9 mg/dL 0.2-1.0 [facility] - Good [Mass/volume] in Serum or [facility] Plasma Alanine aminotransferase 34 U/L 13-61 [facility] - Good [Enzymatic activity/volume] [facility] in Serum or Plasma Aspartate aminotransferase 47 U/L 15-37 Above high [facility] - Good [Enzymatic activity/volume] normal [facility] in Serum or Plasma by With P-5'-P Alkaline phosphatase 171 U/L 45-117 Above high [facility] - Good [Enzymatic activity/volume] normal [facility] in Serum or Plasma Protein [Mass/volume] in 7.5 g/dL 6.4-8.2 [facility] - Good Serum or Plasma [facility] ital Albumin [Mass/volume] in 3.8 g/dL 3.5-4.7 [facility] - Good Serum or Plasma by [facility] ospital Bromocresol purple (BCP) dye binding method Globulin [Mass/volume] in 3.7 g/dL 1.7-4.7 [facility] - Good Serum by calculation [facility] Albumin/Globulin [Mass 1.0 0.7-2.8 [facility] - Good Ratio] in Serum or Plasma [facility] ID Date Data Source [id number] 12/05/2019 01:31:37 PM EDT [facility] - Good [facility] Name Value Range Interpretation Description Data Sup porting Code Source(s) Document(s ) Magnesium 2.9 mg/dL 1.6-2.6 Above high normal [facility] - Good [Mass/volume] Buddhist in Serum or [facility] Plasma ID Date Data Source [id number] 12/05/2019 01:20:04 PM EDT [facility] - Good [facility] Name Value Range Interpretation Description Data Sup porting Code Source(s) Document(s ) Prothrombin 10.6 sec 9.4-11.1 [facility] - Good time (PT) [facility] INR in 1.0 0.8-1.2 [facility] - Good Platelet poor Buddhist plasma by Hospital Coagulation assay ID Date Data Source [id number] 12/05/2019 01:07:21 PM EDT [facility] Name Value Range Interpretation Description Data Sup porting Code Source(s) Document(s ) Leukocytes 12.4 4.8-10.6 Above high normal [facility] - [#/volume] in K/uL Good Blood by Buddhist Automated count Hospital Erythrocytes 5.03 4.70-6.0 [facility] - [#/volume] in M/uL 0 Good Blood by Buddhist Automated count [facility] Hemoglobin 15.4 14.0-18. [facility] - [Mass/volume] in g/dL 0 [facility] Blood [facility] Hematocrit 45.8 % 42.0-52. [facility] - [Volume 0 Good Fraction] of Buddhist Blood by Hospital Automated count Erythrocyte mean 91.1 FL 81.0-94. [facility] - corpuscular 0 Good volume [Entitic Buddhist volume] by Hospital Automated count Erythrocyte mean 30.6 PG 27.0-35. [facility] - corpuscular 0 Good hemoglobin Buddhist [Entitic mass] Hospital by Automated count Erythrocyte mean 33.6 30.7-37. [facility] - corpuscular g/dL 3 Good hemoglobin Buddhist concentration [facility] [Mass/volume] by Automated count Erythrocyte 12.9 % 11.5-14. [facility] - distribution 0 Good width [Ratio] by [facility] count [facility] Platelets 164 K/uL 130-400 [facility] - [#/volume] in Good Blood by Buddhist Automated count [facility] Platelet mean 9.5 FL 9.2-11.8 [facility] - volume [Entitic Good volume] in Blood Buddhist by Automated Hospital count Nucleated 0.0 PER 0 [facility] - erythrocytes/100 100 WBC Good leukocytes Buddhist [Ratio] in Blood Hospital Nucleated 0.00 0.0-0.01 [facility] - erythrocytes K/uL Good [#/volume] in Buddhist Blood [facility] Segmented 80 % 48.0-72. Above high normal [facility] - neutrophils/100 0 Good leukocytes in [facility] Lymphocytes/100 8 % 18.0-40. Below low normal [facility] - leukocytes in 0 Good Blood [facility] Monocytes/100 10 % 2.0-12.0 [facility] - leukocytes in [facility] Eosinophils/100 1 % 0.0-7.0 [facility] - leukocytes in [facility] Basophils/100 0 % 0.0-3.0 [facility] - leukocytes in [facility] Immature 0 % 0-0.5 [facility] - granulocytes/100 Good leukocytes in [facility] by [facility] Automated count Segmented 10.0 2.3-7.6 Above high normal [facility] - neutrophils K/UL Good [#/volume] in [facility] Lymphocytes 1.0 K/UL 0.9-4.2 [facility] - [#/volume] in [facility] Monocytes 1.2 K/UL 0.1-1.7 [facility] - [#/volume] in [facility] Eosinophils 0.1 K/UL 0.0-1.0 [facility] - [#/volume] in [facility] Basophils 0.0 K/UL 0.0-0.4 [facility] - [#/volume] in [facility] Immature 0.1 K/UL 0.0-0.17 [facility] - granulocytes Good [#/volume] in [facility] Automated count Differential [facility] - cell count [facility] ID Date Data Source [id number] 12/10/2019 05:19:23 AM EDT [facility] Name Value Range Interpretation Description Data Sup porting Code Source(s) Document(s ) Service comment [facility] Bacteria [employer] identified in Buddhist Unspecified Hospital specimen by Culture ID Date Data Source [id number] 12/05/2019 12:24:35 PM EDT [facility] PELVIS one view.History: TraumaThe study is suboptimal due to the patient's body habitus.There is no evidence of fracture , dislocation, subluxation, bone erosion orarthritis.IMPRESSION: Grossly normal s tudy. Signing date/time: 12/05/2019 12:24 PMSigned by: CURTIS VARMA Name Value Range Interpretation Code Description Data Melani rce(s) Supporting Document(s ) ID Date Data Source [id number] 12/05/2019 12:23:11 PM EDT [facility] CHEST 1 view (s)HISTORY: Chest pain.COMP [...] Supporting Document(s ) ID Date Data Source [id number] 12/05/2019 11:34:39 AM EDT [facility] BIBA for fall in the middle of the night while going to bathroomC/p left hip pain Name Value Range Interpretation Code Description Data Melani rce(s) Supporting Document(s ) ID Date Data Source [id number] 12/05/2019 11:21:27 AM EDT [facility] Please enter the current weight for this patient in [facility]. Thank you. Name Value Range Interpretation Code Description Data Melani rce(s) Supporting Document(s ) ID Date Data Source [id number] 11/23/2019 02:02:47 PM EDT [facility] Discharge SummaryPatient: Maxwell Mendieta Xiao e Sex: male DOA: 10/29/2019Date of : 1970 [...] E66.01ICD-9-CM: 278.01 07/19/2018 - Present Spells ICD-10-CM: [id number]-DG: IMO00 01 04/08/2016 - Present Seizure disorder [...] tr eated with parenteral hydration with benefit f8sgjlibdhuepzdeybu responses. Of note i s fact that patient was scheduled to begin ECTtreatment for depression when Covid 1 9 pandemic curtained this plan.Consults: PsychiatrySignificant Diagnostic Studies : labs: microbiology: , radiology: and cardiacgraphics:Discharge Medications: @DISCHARGEMEDLIST@Activity: Activity as toleratedDiet: Resume previous dietWound Care: None neededFollow-up: This examiner to follow in officeRitika Canas MD Name Value Range Interpretation Code Description Data [facility](s) Supporting Document(s ) ID Date Data Source [id number] 11/03/2019 09:41:35 PM EDT [facility] Verbal shift change report given to , RN (oncoming nurse) by Scott Beverly RN (offgoing nurse). Report included the fo llowing information SBAR, Kardex,Intake/Output, MAR and Recent Res ults. Name Value Range Interpretation Code Description Data [facility](s) Supporting Document(s ) ID Date Data Source [id number] 11/03/2019 03:34:07 PM EDT [facility] Per psych note, CM to confirm patient ap pt with psychiatristCall to Dr Mateo Méndez office # [phone], office closedPati ent aware of # to call to make his own appt, [facility] ent states his will be coming this evening to drive him homeCare Management InterventionsPCP Verified by CM: YesPalliative Care Criteria Met (RRAT>21 & CHF Dx)?: NoMode of Transport at Discharge: Other (see comment)( yanni maciel between approx5-6)Transition of Care Consult (CM Consult): Discharge Planning Physical Therapy Consult: NoOccupational Therapy Consult: NoSpeech Therapy Consul t: NoCurrent Support Network: Lives with Spouse, Own Home( [place] [phone])Confirm Follow Up Transport: FamilyThe Patient and/or Patient [...] Supporting Document(s ) ID Date Data Source [id number] 11/03/2019 02:45:48 PM EDT [facility] PHYSICAL THERAPY TREATMENTPatient: Maxwell Bray (49 y.o. [...] care was discussed with: Registered Nurse and patientYisroel Javier palma, PT, DPT Time Calculation: 18 mins Name Value Range Interpretation Code Description Data Melani rce(s) Supporting Document(s ) ID Date Data Source [id number] 11/03/2019 01:09:08 PM EDT [facility] Daily Progress NoteAdmit Date: Hospital day: [...] past 8 hrs: BP Temp Pulse Resp KoD76311/03/19 0752 115 /76 97.6 F (36.4 C) 68 19 97 %11/02 0701 - 11/02 1900In: -Out: 175 [Urine:175]10/31 190 - 11/02 0700In: 3138.3 [I.V.:3138.3]Out: 2935 [Urine:2935] [...] Supporting Document(s ) ID Date Data Source [id number] 11/03/2019 10:52:30 AM EDT [facility] S/O patient has seen for follow up via V ideo . He is doing much better. Hedenies any auditory or visual hallucination any mor eHe has no suicidal or homicidal thoughtsHe reports that he sees Dr. marie every ot her weeksPt wants to follow up with Dr. Marie after dischargePlan continue on a ll current psychotropic medications Requesting telephonic nurse case manager to confirm his a ppointment with Dr. mariebefore he discharged Please re consult if n eeded Name Value Range Interpretation Code Description Data Melani rce(s) Supporting Document(s ) ID Date Data Source [id number] 11/03/2019 07:12:34 AM EDT [facility] Bedside and Verbal shift change report cristi bolanos to Meño Rose RN (oncomingnurse) by June Ochoa RN (offgoing nurse). Repor t included the followinginformation SBAR, Kardex, Intake/Output, MAR, Recent Resul ts and Med Rec Status. Name Value Range Interpretation Code Description Data Melani rce(s) Supporting Document(s ) ID Date Data Source [id number] 11/02/2019 11:18:25 PM EDT [facility] Problem: Falls - Risk ofGoal: *Absence [...] Supporting Document(s ) ID Date Data Source [id number] 11/02/2019 07:34:02 PM EDT [facility] Bedside shift change report given to GILLIAN KEATING (oncoming nurse) by Meño Rose(offgoing nurse). Report included the following information SBAR, Kardex andIntake/Output. Name Value Range Interpretation Code Description Data [facility] rce(s) Supporting Document(s ) ID Date Data Source [id number] 11/02/2019 05:14:50 PM EDT [facility] Telehealth Progress NotePursuant to the emergency [...] [] Telephone [x] VideoconferenceDate: 11/02/2019Accodarian Blanton mber: [phone]: Maxwell Robin & Joe PROGRESS NOTE:Coordinated treatment team rounds conducted with psychiatrist, patient, nursesand/or child welfare social worker present ; dis cussions held with telephonic nurse case manager and/or familymembers; Chart reviewed in full in cluding center consultant notes, ancillary staffnotes, vitals and labs in [facility] EMR reviewed in full.SUBJECTIVE: Pt seen for first time on Video with my SW Mendy And RN , hereports less hallucinations , as they are still there in the morning But overall better since got back on vraylar told me was scheduled for ECT at [facility] but due to elective , it [...] past 8 hrs: Temp Pulse Resp BP [id number]/20 1546 98.3 F (36.8 C) 84 18 [...] (LOVENOX) injection 40 mg 40 mg SubCUTAneous Q08BPmadsribq Medications:C urrent Facility-Administered MedicationsMedication Dose Route Frequen [...] ENOX) injection 40 mg 40 mg SubCUTAneous [id number]/PLAN:Continue current kalie atment as pt is stabalizingPatient [...] were addressed, focused on;Psychoeducation provided. Treatment p chepe reviewed with patient-includingdiagnosis and medications. Worked on issues of den ial & effects of substancedependency/use.Length of psycho therapy session: Time; 15 min -Expected Discharge Date (Day)/Estimated length of stay:Patient was seen during coordinated treatment rounds and discussed withpam siegel psychiatrist who concurs with above.Iglesia Frazier MD11/02/20195:06 PM Name Value Range Interpretation Code Description Data Melani rce(s) Supporting Document(s ) ID Date Data Source [id number] 11/02/2019 03:02:33 PM EDT [facility] General Daily Progress NoteAdmit Date: Hospital [...] (LOVENOX) injection 40 mg 40 mg SubCUTAneous [id number]:Patient Vitals for the past 8 hrs: BP Temp Pulse Resp S pO211/02/19 0748 120/85 98.2 F (36.8 C) 75 18 94 %11/01 07 - 11/01 1900In: -Out: 570 [Urine:570]10/30 1900 [...] contrast. Sagittal and coronal reconstruction was performed.Uti Neuraing historiographer algorithm the examination was performed to optimizeimaging [...] Value Range Interpretation Code Description Data [facility] rce(s) Supporting Document(s ) ID Date Data Source [id number] 11/02/2019 07:48:14 AM EDT [facility] Verbal shift change report given to Jody wells RN (oncoming nurse) by Juliane UGALDE (offgoing nurse). Report included the following information SBAR,Kardex, Intake/Output, MAR and Recent Results Name Value Range Interpretation Code Description [facility]s ) ID Date Data Source [id number] 11/02/2019 05:41:52 AM EDT [facility] Patient AOX3 with periodic confusion. In bed watching TV. All med's given asordered by , tolerated well. Fall precaution m easures reinforced. Call bellwithin reach, bed in low position. Has urinal and comm ode at bedside. Voices nocomplaint at this time. Will continue to monitor pt. Name Value Range Interpretation Code Description Data [facility] rce(s) Supporting Document(s ) ID Date Data Source [id number] 11/01/2019 08:46:30 PM EDT [facility] Problem: Falls - Risk ofGoal: *Absence [...] Supporting Document(s ) ID Date Data Source [id number] 11/01/2019 08:00:09 PM EDT [facility] Verbal shift change report given to Ly vitale RN (oncoming nurse) by SUSI Palacio (offgoing nurse). Report included the following information SBAR,Intake/Output, MAR and Recent Results. Name Value Range Interpretation Code Description Data Melani rce(s) Supporting Document(s ) ID Date Data Source [id number] 11/01/2019 03:49:42 PM EDT [facility] Adult Progress NoteDate: 11/01/2019Account Number: [id number]: Maxwell Mendieta TrimerinDiagnosis: History of mood and se izure disorder.Length [...] severe depression ([facility]) 10/29/2019 Mixed anxiety and depr essive disorder 09/04/2019 Vitamin D deficiency 09/04/2019 Anxiety 0 Bipolar disorder ([facility]) 07/21/2019 Depressive disorder 07/21/2019 Status p ost gastric bypass for obesity 07/21/2019 Morbid obesity ([facility]) 07/21/2019 Severe obesity ([facility]) 07/19/2018 Spells 04/08/2016 Seizure disorder ([facility]) 04/30/2014 Insom kacey 11/04/2013 H/O gastric bypass [...] found.Assessment/Plan:Active Problems: Bipolar disorder with severe depression (HCC) (10/29/2019)Psychotherapy (type and freque ncy) supportiveConsultation psychiatryMedications:Current [...] (LOVENOX) injection 40 mg 40 mg SubCUTAneous [id number] following information was reviewed and discussed: Patient [...] Supporting Document(s ) ID Date Data Source [id number] 11/01/2019 02:42:08 PM EDT [facility] General Daily Progress NoteAdmit Date: Hospital day: .tdSubjective:Patient to resume Vraylar [address] therapy per Dr Garcia,Psych. PT notesreviewed. New problem of erythematous facial [...] past 8 hrs: BP Temp Pulse Resp UxV975/03/14 0715 101/67 98 F (36.7 C) 70 [...] Sagittal and coronal reconstr uction was performed.Utilizing historiographer algorithm the examination was performed to optimizeimaging [...] Prominent interstitial markings arefelt to reflect vascular microsoft developer 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 Repeat PA andlateral views the chest are advised i f there is clinical concern for pneumoniaor congestive failure.Assessment:Active Pro blems: Bipolar disorder with severe depression (HCC) (10/29/2019)Plan:Improvin g status Name Value Range Interpretation Code Description Data [facility](s) Supporting Document(s ) ID Date Data Source [id number] 11/01/2019 07:08:12 AM EDT [facility] Verbal shift change report given to Chandrakant Albert RN (oncoming nurse) byMelanie Hoffmann RN (offgoing nurse). Report incl uded the following informationSBAR, Kardex, Intake/Output, MAR and Recent Results. Name Value Range Interpretation Code Description Data [facility](s) Supporting Document(s ) ID Date Data Source [id number] 10/31/2019 07:59:03 PM EDT [facility] Verbal shift change report given to Shreya adrian RN (oncoming nurse) by SUSI Palacio (offgoing nurse). Report included the following information SBAR,Kardex, Intake/Output, MAR and Recent Results. Name Value Range Interpretation Code Description Data [facility](s) Supporting Document(s ) ID Date Data Source [id number] 10/31/2019 05:09:32 PM EDT [facility] Telehealth ConsultationPursuant to the e mergency [...] conducted via [] Telephone [x] VideoconferenceSubjective:Patient: Maxwell BrayN #: [id number]: [id number]: 49 y.o. Sex: maleAdm it Date: 10/29/2019Attending: [...] week Gets together: Once a week Attends temple service: More than 4 times per year [...] morbidity or mortal ity cardiac cath at [facility] approx 6-8 months ago Other unknown and [...] past 8 hrs: BP Temp Pulse Resp IvF262/02/11 0754 120/60 97.2 F (36.2 C) 70 20 95 %MENTA L STATUS EXAM:FINDINGS WITHIN NORMAL LIMITS (WNL) UNLESS OTHERWISE STATED BELOW:Sens orium [id number] Well relatedAppearance: OverweightMotor Behavior: Not examined Speech: [...] To: javier coyle re: non formulary drug.Ronal Garcia MD 10/31/2019 3:38 PM Name Value Range Interpretation Code Description Data Melani rce(s) Supporting Document(s ) ID Date Data Source [id number] 10/31/2019 04:37:18 PM EDT [facility] [address] [place], [place] [address]IVFFOLY: MAXWELL BRAYMRN: [id number]: [id number]#: [id number] DATE: 10/29/2019 CONSULTATIONHISTORY OF PRESENT ILLNESS: The [...] and Klonopin.PAST MEDICAL HISTORY: Cardiac cath at [facility] six to eight months ago, concussions,periodic disorientation, [...] back to his psychiatrist in the commu [facility].Cognitively,he seems to be fair. His memory to [...] 27, alkaline phosphatase 139, lithium level 0.20. ELIZABETH MYERSD: 10/30/2019 14:44:41/BR /s_roberth_01/[id number] / [id number] Name Value Range Interpretation Code Description Data Melani rce(s) Supporting Document(s ) ID Date Data Source [id number] 10/31/2019 01:47:36 PM EDT [facility] General Daily Progress NoteAdmit Date: Hospital day: .tdSubjective:Patient reportedly doing better reference activi ty. Persistent symptoms ofnausea. Also chronic frontal headache. Admits to rafale maciel had halluciinationsnight of admissionNo bowel activity, [...] Supporting Document(s ) ID Date Data Source [id number] 10/31/2019 12:59:26 PM EDT [facility] physical Therapy TREATMENTPatient: Maxwell Bray (49 y.o. [...] activatedComments:COMMUNICATION/COLLABORATION:The patient's plan of care was discussed wit h: Registered Nadia Enrique PT,DPT Time Calculation: 24 mins Name Value Range Interpretation Code Description Data Melani rce(s) Supporting Document(s ) ID Date Data Source [id number] 10/31/2019 07:10:46 AM EDT [facility] Bedside and Verbal shift change report g iven to Samy UGALDE (oncoming nurse)by Cristofer Valenzuela RN (offgoing nurse). Repo rt included the following information SBAR, Kardex, MARand Recent Results. Name Value Range Interpretation Code Description Data Melani rce(s) Supporting Document(s ) ID Date Data Source [id number] 10/30/2019 11:27:14 PM EDT [facility] Problem: Falls - Risk ofGoal: *Absence [...] Supporting Document(s ) ID Date Data Source [id number] 10/30/2019 08:09:55 PM EDT [facility] Susi Garcia called as pt has [...] be ordered as non formulary also At [facility] Name Value Range Interpretation Code Description Data Melani rce(s) Supporting Document(s ) ID Date Data Source [id number] 10/30/2019 08:06:30 PM EDT [facility] Telephoned Dr. Oc tompkins pt's c/o new sy mptoms of hallucinations. Orderedreceived, relayed to RN, SUSI Marroquin on mini shifter Name Value Range Interpretation Code Description Data Melani rce(s) Supporting Document(s ) ID Date Data Source [id number] 10/30/2019 08:01:35 PM EDT [facility] Verbal shift change report given to Cecilia wells (oncoming nurse) by Samy Albert RN (offgoing nurse). Report included the fo llowing information SBAR, ProcedureSummary, Intake/Output, MAR and Recent Results. Name Value Range Interpretation Code Description Data Melani rce(s) Supporting Document(s ) ID Date Data Source [id number] 10/30/2019 02:58:51 PM EDT [facility] Problem: Mobility Impaired (Adult and Pe [...] of morbidity or mortality cardiac cath at [facility] approx 6-8 months ago Other unknown and [...] Home: NoneCritical Behavior:Neurologic State: AlertOrientation Level: Oriented [id number]: Appropriate for age attention/concentrationSafety/Judgement: Awareness of environmentSkin:Strength:Strength: [...] Supporting Document(s ) ID Date Data Source [id number] 10/30/2019 02:50:37 PM EDT [facility] Telehealth ConsultationPursuant to the e mergency [...] [] Telephone [] VideoconferenceSubjective:Patient: Maxwell BrayMRN #: [id number]: [id number]: 49 y.o. Sex: maleAdm it Date: 10/29/2019Attending: Ritika Canas MDDate of Evaluation: 10/30/2019Reason fo r Referral: Maxwell Bray was admitted for being found on the floorand was unable t o get up.History of Presenting Problem:Patient is 49 y.o. male refd to psychiatry for having psychiatric illness.Consult dictated.Ronal Ayala MD 10/30/2019 11:14 AM Name Value Range Interpretation Code Description Data Melani rce(s) Supporting Document(s ) ID Date Data Source [id number] 10/30/2019 02:06:26 PM EDT [facility] Care Management InterventionsPCP Verifie d by CM: YesPalliative Care Criteria Met (RRAT>21 & CHF Dx)?: NoMode of Transport at Discharge: Other (see comment)(family)Transition of Care Consu lt (CM Consult): Discharge PlanningPhysical Therapy Consult: NoOccupational Therapy Consult: NoSpeech Therapy Consult: NoCurrent Support Network: Lives with Spouse, Own Home( [place] [phone])Confirm Foll ow Up Transport: FamilyThe Patient and/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 Patient normally works (pre-covid) and drives. CM dept roleexplained, patient is currently denying any HC or rehab needs and states hiswife will drive him home upon DC. PT eval is ordered and pending. CM dept laila lfollow if patient has any PT needs.CASE MANAGEMENT PSYCHOSOCIAL ASSESSMENTMaxwell Bray Admission Date: 10/29/2019MRN: [id number] of : 1970Current date: 10/30/2019DISCHARGE PLAN: homePatient Info rmation:Patients Preferred Name: Tim Arrived Via: StretcherTransferred from a [facility] facility: NoInformation Obtained From: PatientPatient Objects to Receiving Bloo d: NoMRSA Assessment: Not applicableAuditory Impairment: NoneRetired Read Only-Readmi t Risk ToolSupport Systems: Family member(s)History of Falls Within Past 3 Months: NoNeeds Assistance with Wound Care AND/OR Mgnt of O2, Nebulizer: NoRequires Financial, Physical and/or Educational Assistance With Medications: NoHistory o f Mental Illness: NoLiving Alone: NoPCP: Ritika Canas MDAdmitting Provider: Cristi Canas [facility] [employer]NER: naPayor: Payor: [facility] HEALTH PLAN / Plan: [facility] HEALTH PLAN /Product Type: O /[facility] Payor: @[facility]NAME@Bipolar disorder with severe depression (HCC) [F 31.4]Bipolar disorder with severe depression (HCC) [F31.4]Patient Active Problem List Diagnosis Code H/O gastric bypass Z98.84 Insomnia G47.00 Neuropathic pain of surekha glover M79.2 Seizure disorder ([facility]) G40.909 Spells R68.89 Severe obesity ([facility]) E66. 01 Depression F32.9 Anxiety F41.9 Bipolar disorder ([facility]) F31.9 Depressive disorde r F32.9 Status post gastric bypass for obesity Z98.84 Morbid obesity ([facility]) E66 .01 Mixed anxiety and depressive disorder [...] d Notes:Long-Term Care Insurance If Applicable Notes:Current Functioning:Chepe guage barriers: Notes:Understanding nature/impact of illness: Notes:Ability to participate in plan: Notes:Realistic Problem solving and planning: Notes:Adeq uate coping skills: Notes:Lutheran/Cultural barriers: Notes:If unable to assess or n ot applicable: Notes:Suicide Assessment:Primary Diagnosis or Primary Complaint of an Emotional Behavior Disorder: NoPatient is Currently Experiencing Depr ession: NoSuicidal Ideation/Attempts: NoHomicidal Ideation/Attempts: NoAlcohol /Drug Intoxication: NoHallucinations/Delusions: NoPending, A ctive, or Temporary Half-Way Orders: NoAggressive/Inappropriate Behavior: NoR eadmit Risk:Support Systems: Family member(s)Advanced Care Planning:Confirm Advance Directive: NoneDiscussed with the patient and all questions fully answered . He will call me ifany problems arise. Name Value Range Interpretation Code Description Data Melani rce(s) Supporting Document(s ) ID Date Data Source [id number] 10/30/2019 12:38:13 PM EDT [facility] General Daily Progress NoteAdmit Date: Hospital day: .tdSubjective:Patient markedly improved this am, speech now no rmal. Denies possibleinadvertent overdose of chronic meds. Accepting of psych consult . PT toevaluate. Claims symptoms of mild nausea. Meds reviewed claims to be takin gElavil G 150 mg HS ,Klonopin 1 mg twice a day, [place] 300 twice daily, Vraylar3 m g dailyCurrent [...] past 8 hrs: BP Temp Pulse Resp GjV69010/30/19 0727 (!) 130/96 98 F (36.7 C) [...] Supporting Document(s ) ID Date Data Source [id number] 10/30/2019 07:52:05 AM EDT [facility] Verbal shift change report given to Chandrakant nemarie RN (oncoming nurse) Tavares UGALDE (offgoing nurse). Report included the fo llowin information SBAR,Kardex, Procedure Summary, Intake/Output, MAR and Recent R esults. Name Value Range Interpretation Code Description Data Melani rce(s) Supporting Document(s ) ID Date Data Source [id number] 10/30/2019 06:40:05 AM EDT [facility] Pt. AOX3, periodic confusion. Commode an d urinal at bedside. Seizure and fallprecaution measures in place. Voice s no complaint during shift . Name Value Range Interpretation Code Description Data Melani rce(s) Supporting Document(s ) ID Date Data Source [id number] 10/30/2019 07:29:12 AM EDT [facility] Name Value Range Interpretation Description Data Sup porting Code Source(s) Document(s ) Sodium 139 136-145 [facility] - Good [Moles/volume] mmol/L [facility] in Serum or Hospital Plasma Potassium 3.6 3.5-5.1 [facility] - Good [Moles/volume] mmol/L Buddhist in Serum or Hospital Plasma Chloride 110 98-107 Above high normal [facility] - Good [Moles/volume] mmol/L Buddhist in Serum or Hospital Plasma Carbon 24 21-32 [facility] - Good dioxide, total mmol/L Buddhist [Moles/volume] Hospital in Serum or Plasma Anion gap in 9 mmol/L 10-20 Below low normal [facility] - Go od Serum or Buddhist Plasma Hospital Glucose 96 mg/dL 74-106 [facility] - Good [Mass/volume] Buddhist in Serum or Hospital Plasma Urea nitrogen 10 mg/dL 7-18 [facility] - Good [Mass/volume] Buddhist in Serum or Hospital Plasma Creatinine 0.81 0.70-1.3 [facility] - Good [Mass/volume] mg/dL 0 Buddhist in Serum or Hospital Plasma Glomerular >60 [facility] - Good filtration Buddhist rate/1.73 sq M Hospital predicted among blacks [Volume Rate/Area] in Serum or Plasma by Creatinine-bas ed formula (MDRD) Glomerular >60 [facility] - Good filtration Buddhist rate/1.73 sq M Hospital predicted among non-blacks [Volume Rate/Area] in Serum or Plasma by Creatinine-bas ed formula (MDRD) Calcium 8.2 8.5-10.1 Below low normal [facility] - Good [Mass/volume] mg/dL Buddhist in Serum or Hospital Plasma ID Date Data Source [id number] 10/30/2019 07:05:07 AM EDT [facility] Name Value Range Interpretation Description Data Sup porting Code Source(s) Document(s ) Leukocytes 4.8 K/uL 4.8-10.6 [facility] - [#/volume] in Good Blood by Buddhist Automated count Hospital Erythrocytes 4.59 4.70-6.0 Below low normal [facility] - [#/volume] in M/uL 0 Good Blood by [facility] Automated count Hospital Hemoglobin 14.0 14.0-18. [facility] - [Mass/volume] in g/dL 0 Good Blood [facility] Hematocrit 42.7 % 42.0-52. [facility] - [Volume 0 Good Fraction] of Buddhist Blood by Hospital Automated count Erythrocyte mean 93.0 FL 81.0-94. [facility] - corpuscular 0 Good volume [Entitic Buddhist volume] by Hospital Automated count Erythrocyte mean 30.5 PG 27.0-35. [facility] - corpuscular 0 Good hemoglobin Buddhist [Entitic mass] [facility] by Automated count Erythrocyte mean 32.8 30.7-37. [facility] - corpuscular g/dL 3 Good hemoglobin [facility] [Mass/volume] by Automated count Erythrocyte 13.3 % 11.5-14. [facility] - distribution 0 Good width [Ratio] by Buddhist Automated count [facility] Platelets 159 K/uL 130-400 [facility] - [#/volume] in Good Blood by Buddhist Automated count [facility] Platelet mean 8.6 FL 9.2-11.8 Below low normal [facility] - volume [Entitic Good volume] in Blood Buddhist by Automated Hospital count Nucleated 0.0 PER 0 [facility] - erythrocytes/100 100 WBC Good leukocytes Buddhist [Ratio] in Blood Hospital Nucleated 0.00 0.0-0.01 [facility] - erythrocytes K/uL Good [#/volume] in Buddhist Blood [facility] Segmented 54 % 48.0-72. [facility] - neutrophils/100 0 Good leukocytes in [facility] Lymphocytes/100 32 % 18.0-40. [facility] - leukocytes in 0 [facility] Monocytes/100 9 % 2.0-12.0 [facility] - leukocytes in [facility] Eosinophils/100 5 % 0.0-7.0 [facility] - leukocytes in [facility] Basophils/100 1 % 0.0-3.0 [facility] - leukocytes in [facility] Immature 0 % 0-0.5 [facility] - granulocytes/100 Good leukocytes in [facility] Blood by Hospital Automated count Segmented 2.6 K/UL 2.3-7.6 [facility] - neutrophils Good [#/volume] in [facility] Lymphocytes 1.5 K/UL 0.9-4.2 [facility] - [#/volume] in [facility] Monocytes 0.4 K/UL 0.1-1.7 [facility] - [#/volume] in [facility] Eosinophils 0.2 K/UL 0.0-1.0 [facility] - [#/volume] in [facility] Basophils 0.0 K/UL 0.0-0.4 [facility] - [#/volume] in [facility] Immature 0.0 K/UL 0.0-0.17 [facility] - granulocytes Good [#/volume] in [facility] by [facility] Automated count Differential [facility] - cell count [facility] method [facility] ID Date Data Source [id number] 10/29/2019 07:40:21 PM EDT [facility] Verbal shift change report given to Wai rogers RN(oncoming nurse) by Elizabeth Meehan RN (offgoing nurse). Report included the fo llowing information SBAR, Kardex, EDSummary, Intake/Output, MAR and Recent Results. Name Value Range Interpretation Code Description Data Melani rce(s) Supporting Document(s ) ID Date Data Source [id number] 10/30/2019 06:54:22 PM EDT [facility] Name Value Range Interpretation Description Data Sup porting Code Source(s) Document(s ) Color of Urine YEL [facility] Appearance of CLEAR [facility] - Urine [facility] Specific gravity 1.015 1.003-1. [facility] - of Urine by 030 Good Refractometry [facility] pH of Urine by 6.0 4.6-8.0 [facility] - Test strip [facility] Protein NEG [facility] - [Mass/volume] in Good Urine by Test [facility] Glucose NEG [facility] - [Mass/volume] in Good Urine by Buddhist Automated test Hospital strip Ketones NEG [facility] - [Presence] in Good Urine by Buddhist Automated test Hospital strip Bilirubin.total NEG [facility] - [Presence] in Good Urine [facility] Hemoglobin NEG [facility] - [Presence] in Good Urine by Test [facility] Urobilinogen 1.0 0.2-1.0 [facility] - [Presence] in EU/dL Good Urine by Buddhist Automated test Hospital strip Nitrite NEG [facility] - [Presence] in Good Urine by Buddhist Automated test Hospital strip Leukocyte NEG [facility] - esterase Good [Presence] in Buddhist Urine by Hospital Automated test strip ID Date Data Source [id number] 10/29/2019 06:14:12 PM EDT [facility] Spoke with to clarify meds..correct doses obtained Name Value Range Interpretation Code Description Data Melani rce(s) Supporting Document(s ) ID Date Data Source [id number] 10/29/2019 06:01:22 PM EDT [facility] Pt unsure of dose of Vraylar will call w berta Name Value Range Interpretation Code Description Data Melani rce(s) Supporting Document(s ) ID Date Data Source [id number] 10/29/2019 03:56:40 PM EDT [facility] [id number] [facility] [employer] [address] [place] [address] [place] [address] [phone] Maxwell Bray (Male) [id number] ES I 2 ED Dispo:ADMIT Chief Complaint: Dysarthria, Lethargy Diagnosis: Altered mental status, unspecified altered mental statu s type [] Bipolar disorder with severe depression (HCC) [] Current Providers: Att ending: Cole Ernandez; Cristi Canas Consulting Provider: Cristi Canas Primary Nurse: Kristy Moss Tech: HERMANN GonzalesN: [id number] [employer] [id number] - Bs hsi [employer] MrnMRN: [id number] [employer] [id number] - [employer]sh[employer] Age Sex 1970 AGE 49 SEX Male Primary Care Provider: Ritika Canas MD Xzvkoifks: (No Kn own Allergies)Date Reviewed: 10/29/2019Reviewed by: Ritika Canas MD - Review CompleteED Provider Notes: All no tesHNO ID: [id number]: Cristobal Ernandez MDService: -Author Type: PhysicianFiled: 10/29/19 [...] of morbidity or mortality cardiac cath at [facility] approx 6-8 months ago Other unknown and [...] week Gets together: Once a week Attends temple service: More than 4 times per year [...] QTC Calculation (Bezet) 446 ms Calculated P Ehrenberg 53 degrees Calc ulated R Ehrenberg 68 degrees Calculated T Ehrenberg 0 degrees Diagnosis Sinus tachycardiaProlonged DC intervalNo nspecific intraventricular conduction delayCBC WITH AUTOMATED [...] Time: 10/29/19 10:45 AMResult Value Ref Range [place] level <0.20 (L) 0.6 - 1.2 MMOL/L [...] contrast. Sagittal and coronalreconstruction was performed. Utilizing historiographer algorithm theexaminationwas performed to optimize imaging quality [...] status, unspecified altered menta l status type [id number] condition at time of disposition: StableI have reviewed the following home medications:Prior to Admission medicationsMedication Sig Start Date End Date Taking? Authorizing ProviderVra ylar 3 mg capsule 09/03/19 Provider, Historicalamitriptyline (ELAVIL) 150 mg tablet TAKE 1 TABLET ORA LLY NIGHTLY DOSECHANGED 08/20/19 Provider, Historicallithium carbonate 150 mg capsule Take 300 mg by mouth three (3) timesdaily. Other, MD PaulvalACYclovir (VALTREX) 1 gram tablet 07/17/18 Provider, Sneha proctorlonazePAM (KLONOPIN) 2 mg tablet Take 1 mg by mouth daily. Suzette,Ailyn Miller Stephen, MD I, Alexa nder Costa, am serving as a scribe to [...] d thediagnostic studies, unless otherwise noted.+ED Orders [id number] CBC WITH AUTOMATED DIFF [# [id number]] Priority: STAT Class: ER Collect Standing Order Information Remaining Occurrences:0 /1 Interval:ONE TIME Last released:10/29/2019 Released orders: SunOctober 29, 2019 11:02 AM by: CRISTOBAL ERNANDEZ [id number] METABOLIC PANEL, COMPREHENSIVE [#[id number]] Bridgette ority: STAT Class: ER Collect Standing Order Information Remaining Occurrences:0/1 Inter haile:ONE TIME Last released:10/29/2019 Released orders: SunOctober 29, 2019 11:02 AM by: CRISTOBAL WADE [id number] PROTHROMBIN TIME + INR [#[id number]] Priority: STAT Class: E R Collect Standing Order Information Remaining Occurrences:0/1 Interval:ONE TI ME Last released:10/29/2019 Released orders: SunOctober 29, 2019 11:02 AM by: BRIE ERNANDEZ EN [id number] PTT [#[id number]] Priority: STAT Class: ER Collect Speci men Source: Blood Standing Order Information Remaining Occurrences:0/1 Interval:ONE TI ME Last released:10/29/2019 Released orders: SunOctober 29, 2019 11:02 AM by: BRIE ERNANDEZ [id number] URINALYSIS W/ RFLX MICROSCOPIC [#[id number]] Priority: STAT Class: ER Collect Sta nding Order Information Remaining Occurrences:0/1 Interval:ONE TIME Last released:0 10/29/2019 Released orders: SunOctober 29, 2019 11:02 AM by: CRISTOBAL ERNANDEZ [id number] LITHIUM [#[id number]] Priority: STAT Class: ER Collect Standing Order Information Remaining Occurrences:0 Interval:ONE TIME Last released:10/29/2019 Released orders : SunOctober 29, 2019 11:02 AM by: CRISTOBAL ERNANDEZ [id number] CBC WITH AUTOMATED DIFF [# [id number]] Priority: STAT Class: ER Collect Specimen Source: Whole Blood Specimen Collected: 020 10:45 AM Resulting Agency: [facility] Test ID: [id number] Released on: 0 11:02 AM [id number] METABOLIC PANEL, COMPREHENSIVE [#[id number]] Priority: STAT Class: E R Collect Specimen Source: Plasma Specimen Collected: 10/29/2019 10:45 AM Resulting Agency: [facility] Test ID: MPL Released on: 10/29/2019 11:02 AM [id number] PROTHROMBIN TIME + IN R [#[id number]] Priority: STAT Class: ER Collect Specimen Source: Plasma Specimen Collec hyun: 10/29/2019 10:45 AM Resulting Agency: [facility] Test ID: APTHR Released o n: 10/29/2019 11:02 AM [id number] PTT [#[id number]] Priority: STAT Class: ER Collect Specimen Source: Plasma Specimen Collected: 10/29/2019 10:45 AM Resulting Agency: [facility] Test ID: APTT Released on: 10/29/2019 11:02 AM [id number] URINALYSIS W/ RFLX OK CROSCOPIC [#[id number]] Priority: STAT Class: ER Collect [facility] Test ID: UA Released on: 10/29/2019 11:02 AM [id number] LITHIUM [#[id number]] Priority: STAT Class: ER Collect Specimen Source: Serum Specimen Collected: 10/28 10:45 AM Resulting Agency: [facility] Test ID: LI Released on: 10/29/2019 11:02 AM [id number] CBC WITH AUTOMATED DIFF [#[id number]] Priority: STAT Class: E R Collect Standing Order Information Remaining Occurrences:06/25 Interval:TOMORR OW AM [id number] METABOLIC PANEL, BASIC [#[id number]] Priority: STAT Class: ER Collect St anding Order Information Remaining Occurrences:1/1 Interval:TOMORROW AM [id number] CT HEAD W O CONT [#[id number]] Priority: Routine Class: Hospital Performed Standing Or mariano Information Remaining Occurrences:0/1 Interval:ONE TIME Last released:10/29/2019 Released orders: SunOctober 29, 2019 11:02 AM by: CRISTOBAL ERNANDEZ Reason for Exam -> ams IMG 2590 XR CHEST PORT [#[id number]] Priority: STAT Class: Hospital Performe d Standing Order Information Remaining Occurrences:0/1 Interval:ONE TIME Last release d:10/29/2019 Released orders: SunOctober 29, 2019 11:02 AM by: CRISTOBAL ERNANDEZ Reason for Exam -> ams [id number] CT HEAD WO CONT [#[id number]] Priority: STAT Class: Hospital Perfo rmed Specimen Collected: 10/29/2019 11:54 AM Resulting Agency: [facility] Test ID: [id number] Lyman son for Exam -> ams Released on: 10/29/2019 11:02 AM [id number] XR CHEST PORT [#[id number]] Priority: STAT Class: Hospital Performed Specimen Collected: 10/29/2019 12:16 PM Resultin g Agency: [facility] Test ID: [id number] Reason for Exam -> ams Released on: 10/29/2019 11:02 AM [id number] EKG, 12 LEAD, INITIAL [#[id number]] Priority: STAT Class: Hospital Performe d Standing Order Information Remaining Occurrences:0/1 Interval:ONE TIME Last release d:10/29/2019 Released orders: SunOctober 29, 2019 11:02 AM by: CRISTOBAL ERNANDEZ Reason for Exam : -> chest pain [id number] EKG, 12 LEAD, INITIAL [#[id number]] Priority: STAT Class: H ospital Performed Resulting Agency: [facility] Test ID: [id number] Reason for Exam: -> chest pain Releas ed on: 10/29/2019 11:02 AM [id number] POC GLUCOSE [#[id number]] Priority: STAT Cl ass: Hospital Performed Standing Order Information Remaining Occurrences:0/1 Interval:ONE TI ME Last released:10/29/2019 Released orders: SunOctober 29, 2019 11:02 AM by: BRIE ERNANDEZ EN [id number] POC GLUCOSE [#[id number]] Priority: STAT Class: Hospital Performe d Released on: 10/29/2019 11:02 AM [id number] VITAL SIGNS PER UNIT ROUTINE [#[id number]] Priorit y: STAT Class: Hospital Performed Standing Order Information Remaining Occurrences:0/1 Inte rval:CONTINUOUS Last released:10/29/2019 Released orders: SunOctober 29, 2019 2:54 PM by: RITIKA CANAS Comment:More frequently if Indicated. [id number] BEDREST, COMPLETE [#[id number]] Priority: STAT Class: Hospital Performed Standing Order Information Remainin g Occurrences:0/1 Interval:CONTINUOUS Last released:10/29/2019 Released orders : SunOctober 29, 2019 2:54 PM by: RITIKA CANAS [id number] NOTIFY PROVIDER: VITAL SIGNS CHANGES [# [id number]] Priority: STAT Class: Hospital Performed Standing Order [...] Less than 120 ml in 4 hours [id number] APPLY/MAINTAIN SEQUENTIAL COMPRESSIO* [#[id number]] Priority: ST AT Class: Hospital Performed Standing Order Information Remaining Occurrences:0/1 Inter haile:CONTINUOUS Last released:10/29/2019 Released orders: SunOctober 29, 2019 2:54 PM by: RITIKA CANAS [id number] VITAL SIGNS PER UNIT ROUTINE [#[id number]] Priority: STAT Class: H ospital Performed Comment:More frequently if Indicated. Released on: 10/29/2019 2:54 PM [id number] 4 BEDREST, COMPLETE [#[id number]] Priority: STAT Class: Hospital Performed Relea sed on: 10/29/2019 2:54 PM [id number] NOTIFY PROVIDER: VITAL SIGNS CHANGES [#[id number]] Priority: STAT Class: Hospital Performed Temp -> [...] carmen rs Released on: 10/29/2019 2:54 PM [id number] APPLY/MAINTAIN SEQUENTIAL COMPRESSIO* [#[id number]] P riority: STAT Class: Hospital Performed Released on: 10/29/2019 2:54 PM SODIUM CHLORIDE 0.9 % IJ SYRG [#[id number]] Priority: STAT Class: Normal SODIUM CHLORIDE 0.9 % IJ SYRG [#[id number]] Priority: STAT Class: Normal ACETAMINOPHEN 325 MG TABLET [# [id number]] Priority: STAT Class: Normal ENOXAPARIN 40 MG/0.4 ML SUB-Q SYRINGE [#[id number]] Priority: STAT Class: Normal SODIUM CHLORIDE 0.9 % IV [#[id number]] Priority: STAT Class: Normal [id number] GLUCOSE, POC [#[id number]] Priority: Routine Class : ER Collect Resulting Agency: [facility] Test ID: BGG Standing Order Informati on Remaining Occurrences:0/1 Released orders: SunOctober 29, 2019 11:26 AM by: Automatic B [facility] Process [id number] GLUCOSE, POC [#[id number]] Priority: Routine Class : ER Collect Specimen Source: Whole Blood Specimen Collected: 10/29/2019 11:26 AM Resulting Agency: [facility] Test ID: BGG Released on: 10/29/2019 11:26 AM [id number] IP CONSULT TO PRIMARY CARE PROVIDER [#[id number]] Priority: STAT Class: Hospital Performed Standing Order Inf ormation Remaining Occurrences:0 Interval:ONE TIME Last released:10/29/2019 Relea sed orders: SunOctober 29, 2019 12:59 PM by: CRISTOBAL ERNANDEZ Reason for Consult: -> admit Did you call or speak to the consulting provider? -> No Consult To -> dr canas [id number] IP CONSULT TO PRIMAR Y CARE PROVIDER [#[id number]] Priority: STAT Class: Hospital Performed Reason for Consult: -> ad rei Did you call or speak to the consulting provider? -> No Consult To -> dr canas Released on: 12:59 PM CON53 IP CONSULT TO PSYCHIATRY [#[id number]] Priority: STAT Class: H ospital Performed Standing Order Information Remaining Occurrences:0/1 Interval:ONE TI ME Last released:10/29/2019 Released orders: SunOctober 29, 2019 2:54 PM by: RITIKA CANAS Reason for Consult: -> 49 yo male with severe bipolar disease, admitted with s lurred speech, severe weakness Did you call or speak to the consulting provider? -> No Consult To -> Dr Garcia Schedule When? -> TODAY CON53 IP CONSULT TO PSYCHIATRY [#[id number]] Priority: STAT Class: Hospital Performed Reason for Consult: -> 49 yo male with severe bipolar diseas e, admitted with slurred speech, severe weakness Did you call or speak to t he consulting provider? -> No Consult To -> Dr Garcia Schedule When? -> TODAY Released on: 10/29/2019 2:54 PM [id number] INITIAL PHYSICIAN ORDER: INPATIENT [#[id number]] Priority: Routine Class : ADT Pend Transfer Standing Order Information Remaining Occurrences:01 Interval:ONE TI WI Last released:10/29/2019 Released orders: SunOctober 29, 2019 [...] Estimated Length of Stay -> 3-4 Midn ights Discharge Plan: -> Home with Office Follow-up [id number] INITIAL PHYSICIAN ORDER: INPATIENT [# [id number]] Priority: Routine Class: ADT Pend Transfer Status: [...] Foll ow-up Released on: 10/29/2019 2:43 PM [id number] INITIAL PHYSICIAN ORDER: INPATIENT [#[id number]] Priority: Routine Class: ADT Pend Transfer Standing Order Information Remaining Occurrences:0 /1 Interval:ONE [...] 3-4 Midnights Discharge Plan: -> Other (Specify) [id number] INITIAL PHYSIC JOSE ORDER: INPATIENT [#[id number]] Priority: Routine Class: ADT Pend Transfer Status: [...] 2:54 PM IVT3 INSERT PERIPHERAL IV [# [id number]] Priority: STAT Class: Hospital Performed Standing Order Information Remaining Occurre nces:0/ Interval:ONE TIME Last released:10/29/2019 Released orders: SunOctober 28, 020 2:54 PM by: RITIKA CANAS IVT3 INSERT PERIPHERAL IV [#[id number]] Priority: ST AT Class: Hospital Performed Released on: 10/29/2019 2:54 PM CON75 IP CONSULT TO PHYSICAL THERAPY [#[id number]] Priority: STAT Class: Hospital Performed Standing Order Information Remainin g Occurrences: Interval:DAILY Last released:10/29/2019 Released orders : SunOctober 29, 2019 2:54 PM by: RITIKA CANAS CON75 IP CONSULT TO PHYSICAL THERAPY [#[id number]] Priority: STAT Class: Hospital Performed Released on: 10/29/2019 2:54 PM COD2 FULL CODE [#[id number]] Priority: STAT Class: Hospital Performed Standing Order Inf ormation Remaining Occurrences:0/1 Interval:CONTINUOUS Last released:10/29/2019 Rel eased orders: SunOctober 29, 2019 2:54 PM by: RITIKA CANAS COD2 FULL CODE [#[id number]] Priority: STAT Class: Hospital Performed Released on: 10/29/2019 2:54 PM [id number] 4 DIET FULL LIQUID [#[id number]] Priority: STAT Class: Hospital Performed Stand ing Order Information Remaining Occurrences:0/1 Interval:DIET EFFECTIVE NOW Last released:10/29/2019 Released orders: SunOctober 29, 2019 2:54 PM by: RITIKA CANAS Comment:A dvance as tolerated to regular diet [id number] DIET FULL LIQUID [#[id number]] Priority: STAT Class: Hospital Performed Comment:Advance as tolerated to regular diet Released on: 10/29/2019 2:54 Cj Maxwell Mendieta MR#: [id number] * Rm: 416-02Ht: 5' 7" Wt: 3 00 lb Code: Full Code Iso:Diagnosis:Bipolar disorder with severe depression (HCC) [F31.4]Allergies : No Known Allergies -------- Current as of: 10/29/19 1556 ---aspirin (ASPIRIN) tablet 325 mg #[id number] Admin Amount: 1 Tab (1 x 325 mg Tab) Ordered Dose: 325 mg Route: Oral Freq: ONCE Start Date: 12/24/13 No administration times (back 96 hours, ahead 96 hours). ------diphenhydrAMINE (BENADRYL) capsule 50 mg #[id number] Admin Amount: 1 Cap (1 x 50 mg Cap) Ordered Dose: 50 mg Ro poarch: Oral Freq: NOW Start Date: 12/24/13 No administration times (back 96 hours, e ad 96 hours). ------diazepam (VALIUM) tablet 5 mg #[id number] Admin Amount: 1 Tab (1 x 5 mg Tab) Ordered Dose: 5 mg Route: Ora l Freq: ONCE Start Date: 12/24/13 No administration times (back 96 hours, e ad 96 hours). ------lidocaine (XYLOCAINE) 10 mg/mL (1 %) injection 1-30 mL #[id number] Admin Amount: 1-30 mL Ordered Dose: 1-30 mL Route: IntraDERMal Freq: ONC E Start Date: 12/24/13 No administration times (back 96 hours, ahead 96 hours). ------heparin (PF) 2 units/ml in NS infusion 2,000 Units #[id number] Admin Amount: 1,000 mL = 2,000 Units of 2 Units/mL Ordered Dose: 1,000 mL Route: Irrigation Freq: ONCE Start Date: 12/24/13 No administration times (b ack 96 hours, ahead 96 hours). ------heparinized saline 2 units/mL infusion 1,000 Units #[id number] Admin Amount: 500 mL = 1,000 Units of 2 Units/mL Ordered Dose: 500 mL R oute: IntraarTERial Freq: ONCE Start Date: 12/24/13 No administration times (back 96 hours, ahead 96 hours). ------0.9% sodium chloride infusion #[id number] Ordered Dose: 75 mL/hr Route: IntraVENous Freq: CONTINUOUS Start Date: 12/24/13 Rate: 75 mL/hr Duration: No administration times (back 96 hours, ahead 96 hours). ------ioversol (OPTIRAY) 320 mg iodine/mL contrast injection 1-100 mL #[id number] Admin Amount: 1-100 mL Ordered Dose: 1-100 mL Route: IntraVENous Freq: RAD ONCE Start Date: 12/24/13 No administration times (back 96 hours, ahead 96 hours).Maxwell Bray MR#: [id number] * Rm: [id number]: 5' 7" Wt: 300 lb Code: Full Code Iso:Diagnosis:Bipolar disorder with severe depression (HCC) [F31.4]Allergies: No Kn own Allergies -------- Current as of: 10/29/19 1556 ---gadobutrol (GADAVIST) contrast solution 1-10 mL #[id number] Admin Amount: 1-10 mL Ordered Dose: 1-10 mL Route: IntraVENo us Freq: RAD ONCE Start Date: 01/13/14 No administration times (back 96 hours, e ad 96 hours). ------sodium chloride (NS) flush 5-10 mL #[id number] Admin Amount: 5-10 mL Ordered Dose: 5-10 mL Route: IntraVENous Freq: RA D ONCE Start Date: 01/13/14 No administration times (back 96 hours, ahead 96 hours). ------sodium chloride (NS) 0.9 % flush #[id number] Ordered Dose: Route: Freq: Start D ate: 01/13/14 No administration times (back 96 hours, ahead 96 hours). ------morphine injection 2 mg #[id number] Admin Amount: 1 mL = 2 mg of 2 mg/mL Ordered Dose: 2 mg Route: Int raVENous Freq: NOW Start Date: 03/13/15 No administration times (back 96 hours, ahe ad 96 hours). ------influenza vaccine (4 yr+)(PF) (FLUCELVAX QUAD) inj ection 0.5*#[id number] Admin Amount: 0.5 mL Ordered Dose: 0.5 mL Route: IntraMUSCular Freq : PRIOR TO DISCHARGE Start Date: 03/30/16 No administration times (back 96 hours, ahead 96 hours). ------oxyCODONE-acetaminophe n (PERCOCET) 5-325 mg per tablet 1 Tab #[id number] Admin Amount: 1 Tab Ordered Dose: 1 Tab Route: Oral Freq: NOW Start Date: 09/07/17 No administration times (back 96 hours, ahead 96 hours). ------barium sulfate (READICAT) 2.1 % (w/v), 2.0 % (w /w) oral suspension 9*#[id number] Admin Amount: 900 mL Ordered Dose: 900 mL Route: Ora l Freq: RAD ONCE Start Date: 10/15/17 No administration times (back 96 hours, ahe ad 96 hours). ------iopamidol (ISOVUE 300) 61 % contrast injection 100 mL #[id number] Admin Amount: 100 mL Ordered Dose: 100 mL Route: IntraVENous Freq: RAD O NCE Start Date: 10/15/17 No administration times (back 96 hours, ahead 96 hours).Maxwell Bray MR#: [id number] * Rm: [id number]: 5' 7" Wt: 300 lb Cod e: Full Code Iso:Diagnosis:Bipolar disorder with severe depression ([facility]) [F31.4]Allergies: No Kn own Allergies -------- Current as of: 10/29/19 1556 ---risperiDONE (RisperDAL m-tabs) disintegrating tablet 1 mg #[id number] Admin Amount: 1 Tab (1 x 1 mg Tab) Ordered Dose: 1 mg Ro poarch: Oral Freq: ONCE Start Date: 12/24/17 No administration times (back 96 hours, e ad 96 hours). ------ALPRAZolam (XANAX) tablet 2 mg #[id number] Admin Amount: 4 Tab (4 x 0.5 mg Tab) Ordered Dose: 2 mg Route: Ora l Freq: NOW Start Date: 12/24/17 No administration times (back 96 hours, e ad 96 hours). ------lamoTRIgine (LaMICtal) tablet 100 mg #[id number] Admin Amount: 1 Tab (1 x 100 mg Tab) Ordered Dose: 100 mg Route: Ora l Freq: ONCE Start Date: 12/24/17 No administration times (back 96 hours, [facility] ad 96 hours). ------OLANZapine (ZyPREXA zydis) disintegrating tablet 5 mg #[id number] Admin Amount: 1 Tab (1 x 5 mg Tab) Ordered Dose: 5 mg Route: Ora l Freq: ONCE Start Date: 12/25/17 No administration times (back 96 hours, e ad 96 hours). ------LORazepam (ATIVAN) tablet 2 mg #[id number] Admin Amount: 4 Tab (4 x 0.5 mg Tab) Ordered Dose: 2 mg Route: Ora l Freq: NOW Start Date: 12/25/17 No administration times (back 96 hours, [facility] ad 96 hours). ------LORazepam (ATIVAN) injection 1 mg #[id number] Admin Amount: 0.5 mL = 1 mg of 2 mg/mL Ordered Dose: 1 mg Ro poarch: IntraVENous Freq: NOW Start Date: 12/25/17 No administration times (back 96 hours, ahead 96 hours). ------barium sulfate (EZ PAQUE) 96 % (w/w) contrast suspension 17 6 g #[id number] Admin Amount: 176 g Ordered Dose: 176 g Route: Oral Freq: RAD ONCE Start Date: 08/02/18 No administration times (back 96 hours, ahead 96 hours). ------barium sulfate (EZ PAQUE) 96 % (w/w) contrast suspension 17 6 g #[id number] Admin Amount: 176 g Ordered Dose: 176 g Route: Oral Freq: RAD ONCE Start Date: 08/02/18 No administration times (back 96 hours, ahead 96 hours).Maxwell Bray MR#: [id number] * Rm: 416-02Ht: 5' 7" Wt: 300 lb Code: Full Co de Iso:Diagnosis:Bipolar disorder with severe depression ([facility]) [F31.4]Allergies: No Known Allergies -------- Current as of: 10/29/19 1556 ---aspirin chewable tablet 162 mg #[id number] Admin Amount: 2 Tab (2 x 81 mg Tab) Ordered Dose: 162 mg Route: Ora l Freq: NOW Start Date: 08/10/19 No administration times (back 96 hours, ahe ad 96 hours). ------0.9% sodium chloride infusion 1,000 mL #[id number] Admin Amount: 1,000 mL Ordered Dose: 1,000 mL Route: IntraVENous Freq: O NCE Start Date: 08/16/19 Rate: 1,000 mL/hr Duration: No administratio n times (back 96 hours, ahead 96 hours). ------methylPREDNISolone (PF) (Solu-MEDROL) injection 125 mg #[id number] Admin Amount: 2 mL = 125 mg of 125 mg/2 mL Ordered Dose: 125 mg Ro poarch: IntraVENous Freq: NOW Start Date: 08/16/19 No administration times (back 9 6 hours, ahead 96 hours). ------aspirin chewable tablet 162 mg #[id number] Admin Amount: 2 Tab (2 x 81 mg Tab) Ordered Dose: 162 mg Route: Ora l Freq: NOW Start Date: 08/16/19 No administration times (back 96 hours, e ad 96 hours). ------sodium chloride (NS) flush 5-40 mL #[id number] Admin Amount: 5-40 mL Ordered Dose: 5-40 mL Route: IntraVENous Freq: EV AN 8 HOURS Start Date: 10/29/19 Administration times (back 96 hours, ahead 96 hours): : 1400 2200 10/30/19: 0600 1400 2200 10/31/19: 0600 1400 2200 11/01/19: 0600 1400 2200 11/02/19: 0600 1400 ---sodium chloride (NS) flush 5-40 mL #[id number] Admin Amount: 5-40 mL Ordered Dose: 5-40 mL Route: IntraVENous Freq: NEEDED Start Date: 10/29/19 No administration times (back 96 hours, ahead 96 hours). ------acetaminophen (TYLENOL) tablet 650 mg #[id number] Admin Amount: 2 Tab (2 x 325 mg Tab) Ordered Dose: 650 mg Ro poarch: Oral Freq: EVERY 4 HOURS NEEDED Start Date: 10/29/19 No administration times (back 96 hours, e ad 96 hours).Maxwell Bray MR#: [id number] * Rm: 416-02Ht: 5' 7" Wt: 3 00 lb Code: Full Code Iso:Diagnosis:Bipolar disorder with severe depression ([facility]) [F31.4]Allergies : No Known Allergies -------- Current as of: 10/29/19 1556 ---enoxaparin (LOVENOX) injection 40 mg #[id number] Admin Amount: 0.4 mL = 40 mg of 40 mg/0.4 mL Ordered Dose: 40 mg Route: SubCUTAneous Freq: EVERY 24 HOURS Start Date: 10/29/19 Administration times (back 96 hours, ahead 96 hours): 10/29/19: 1455 10/30/19: 14510/31/19: 145411/01/19: 145411/02/19 : 1455 ---0.9% sodium chloride infusion #[id number] Ordered Dose: 100 mL/hr Route: IntraVENous Freq: [...] Supporting Document(s ) ID Date Data Source [id number] 10/29/2019 03:54:13 PM EDT [facility] History & PhysicalBrian Anam Bray is [...] of morbidity or mortality cardiac cath at [facility] approx 6-8 months ag o Other unknown [...] week Gets together: Once a week Attends temple service: More than 4 times per year [...] mouth two (2) times daily asneeded. Other, PhysMisti Known AllergiesRevie w of Systems: Unreliable due [...] trast. Sagittal and coronal reconstruction was performed.Utilizing historiographer alg orithm the examination was performed to [...] QTC Calculation (Bezet) 446 ms Calculated P Ehrenberg 53 degrees Calculat ed R Ehrenberg 68 degrees Calculated T Ehrenberg 0 degrees Diagnosis Sinus tachycardiaProl onged DC intervalNonspecific intraventricular conduction delayCBC WITH AUTOMATED DIFF [...] lydia: 10/29/19 10:45 AMResult Value Ref Range [place] level <0.20 (L) 0.6 - 1.2 MMOL/L GLUCOSE, POC Collection Time: 10/29/19 11:26 AMResult Value Ref Range Glucose, bedsid e 102 65 - 110 MG/DLAll lab results for the last 24 hours reviewed.Assessment/PlanAc tive Problems: Bipolar disorder with severe depression (HCC) (10/29/2019) possible valentina dvertentoverdoseGeorge MD Speedy Name Value Range Interpretation Code Description Data Melani rce(s) Supporting Document(s ) ID Date Data Source [id number] 10/29/2019 03:42:10 PM EDT [facility] TRANSFER - OUT REPORT:Verbal report give n to herminio RN(name) on Maxwell Bray being transferred to(unit) for routine progr ession of careReport consisted of patient's Situation, Background, Assessment Tori ommendasreedhar(SBAR).Information from the following report(s) SBAR, Kardex, ED [place] romero Results was reviewed with the receiving nurse.Lines:Peripheral [...] Supporting Document(s ) ID Date Data Source [id number] 10/29/2019 02:28:59 PM EDT [facility] The history is provided by the [...] morbidity or mortal ity cardiac cath at [facility] approx 6-8 months ago Other unknown and [...] week Gets together: Once a week Attends temple service: More than 4 times per year [...] QTC Calculation (Bezet) 446 ms Calculated P Ehrenberg 53 degr ees Calculated R Ehrenberg 68 degrees Calculated T Ehrenberg 0 degrees Diagnosis Sinus tachycar diaProlonged DC intervalNonspecific intraventricular conduction delayCBC WIT H AUTOMATED [...] lydia: 10/29/19 10:45 AMResult Value Ref Range [place] level <0.20 (L) 0.6 - 1.2 MMOL/L [...] Sagittal and coronalreconstru ction was performed. Utilizing historiographer algorithm the examinationwas performed t o optimize [...] TABLET ORALLY NIGHT LY DOSE CHANGED08/20/19 Provider, Danilolithium carbonate 150 mg capsu le Take 300 mg by mouth three (3) times daily.Other, MD PaulvalACYclovir (VALTR EX) 1 gram tablet 07/17/18 Provider, DaniloclonazePAM (KLONOPIN) 2 mg tab let Take 1 mg by mouth daily. Suzette, Ailyn Miller Stephen, MD I, Robi Abdi, am serving as a scribe to [...] Supporting Document(s ) ID Date Data Source [id number] 10/29/2019 12:17:28 PM EDT [facility] XR CHEST PORTCLINICAL INDICATION PROVIDE D:. [...] Value Range Interpretation Code Description Data [facility] rce(s) Supporting Document(s ) ID Date Data Source [id number] 10/29/2019 11:55:57 AM EDT [facility] CT HEAD WO CONTClinical data: amsPriors: 03/13/2015.Technique: Multiple axial images were obtained from the skullbase to the vertexwithout administration of intravenous contrast. Sagittal and coronalreconstru ction was performed. Utilizing historiographer algorithm the examinationwas performed t o optimize [...] Supporting Document(s ) ID Date Data Source [id number] 10/29/2019 11:48:34 AM EDT [facility] Name Value Range Interpretation Description Data Sup porting Code Source(s) Document(s ) Glucose 102 MG/DL 65-110 [facility] - Good [Mass/volume] Buddhist in Blood by [facility] Automated test strip ID Date Data Source [id number] 10/29/2019 10:49:56 AM EDT [facility] Patient lethargic, BIBA from home for le thargy and slurred speech. Name Value Range Interpretation Code Description Data Melani rce(s) Supporting Document(s ) ID Date Data Source [id number] 10/29/2019 11:29:33 AM EDT [facility] Name Value Range Interpretation Code Description Data Supporting Source(s) Document(s ) [place] 0.6-1.2 Below low normal [facility] - Good [Moles/volum Buddhist e] in Serum Hospital or Plasma ID Date Data Source [id number] 10/29/2019 11:28:52 AM EDT [facility] Name Value Range Interpretation Description Data Sup porting Code Source(s) Document(s ) Sodium 136 136-145 [facility] - Good [Moles/volume] mmol/L Buddhist in Serum or Hospital Plasma Potassium 4.4 3.5-5.1 [facility] - Good [Moles/volume] mmol/L Buddhist in Serum or Hospital Plasma Chloride 106 98-107 [facility] - Good [Moles/volume] mmol/L Buddhist in Serum or Hospital Plasma Carbon 22 21-32 [facility] - Good dioxide, total mmol/L Buddhist [Moles/volume] Hospital in Serum or Plasma Anion gap in 12 10-20 [facility] - Good Serum or mmol/L Buddhist Plasma Hospital Glucose 108 74-106 Above high normal [facility] - Good [Mass/volume] mg/dL Buddhist in Serum or Hospital Plasma Urea nitrogen 16 mg/dL 7-18 [facility] - Good [Mass/volume] Buddhist in Serum or Hospital Plasma Creatinine 1.05 0.70-1.3 [facility] - Good [Mass/volume] mg/dL 0 Buddhist in Serum or Hospital Plasma Glomerular >60 [facility] - Good filtration Buddhist rate/1.73 sq M Hospital predicted among blacks [Volume Rate/Area] in Serum or Plasma by Creatinine-bas ed formula (MDRD) Glomerular >60 [facility] - Good filtration Buddhist rate/1.73 sq M Hospital predicted among non-blacks [Volume Rate/Area] in Serum or Plasma by Creatinine-bas ed formula (MDRD) (NOTE)Estimated GFR is calculated using the Modification of Diet in RenalDisease (MDRD) Study equation, reported for both Americans(GFRAA) and non- Americans (GFRNA), and normalized to 1.7 2k0zvvr surface area. The physician must decide which [...] 8.5-10.1 [facility] - Good Serum or Plasma Buddhist Hosp ital Bilirubin.total 0.7 mg/dL 0.2-1.0 [facility] - Good [Mass/volume] in Serum or [facility] Plasma Alanine aminotransferase 30 U/L 13-61 [facility] - Good [Enzymatic activity/volume] [facility] in Serum or Plasma Aspartate aminotransferase 27 U/L 15-37 [facility] - Good [Enzymatic activity/volume] [facility] in Serum or Plasma by With P-5'-P Alkaline phosphatase 139 U/L 45-117 Above high [facility] - Good [Enzymatic activity/volume] normal [facility] in Serum or Plasma Protein [Mass/volume] in 7.6 g/dL 6.4-8.2 [facility] - Good Serum or Plasma [facility] Albumin [Mass/volume] in 3.9 g/dL 3.5-4.7 [facility] - Good Serum or Plasma by Buddhist H ospital Bromocresol purple (BCP) dye binding method Globulin [Mass/volume] in 3.7 g/dL 1.7-4.7 [facility] - Good Serum by calculation [facility] Albumin/Globulin [Mass 1.0 0.7-2.8 [facility] - Good Ratio] in Serum or Plasma [facility] ID Date Data Source [id number] 10/29/2019 11:20:29 AM EDT [facility] Name Value Range Interpretation Description Data Sup porting Code Source(s) Document(s ) aPTT in 22.2 SEC 21.0-28. [facility] - Good Platelet poor 0 Buddhist plasma by [facility] Coagulation assay Therapeutic Range = 42.0-60.0 secs ID Date Data Source [id number] 10/29/2019 11:20:29 AM EDT [facility] Name Value Range Interpretation Description Data Sup porting Code Source(s) Document(s ) Prothrombin 10.3 sec 9.4-11.1 [facility] - Good time (PT) [facility] INR in 1.0 0.8-1.2 [facility] - Good Platelet poor Buddhist plasma by Hospital Coagulation assay ID Date Data Source [id number] 10/29/2019 11:11:49 [facility] Value Range Interpretation Description Data Sup porting Code Source(s) Document(s ) Leukocytes 8.1 K/uL 4.8-10.6 [facility] - [#/volume] in Good Blood by [facility] Erythrocytes 5.52 4.70-6.0 [facility] - [#/volume] in M/uL 0 Good Blood by [facility] Hemoglobin 16.7 14.0-18. [facility] - [Mass/volume] in g/dL 0 Good Blood [facility] Hematocrit 51.8 % 42.0-52. [facility] - [Volume 0 Good Fraction] of Buddhist Blood by [facility] Automated count Erythrocyte mean 93.8 FL 81.0-94. [facility] - corpuscular 0 Good volume [Entitic Buddhist volume] by Hospital Automated count Erythrocyte mean 30.3 PG 27.0-35. [facility] - corpuscular 0 Good hemoglobin Buddhist [Entitic mass] Hospital by Automated count Erythrocyte mean 32.2 30.7-37. [facility] - corpuscular g/dL 3 Good hemoglobin [facility] [Mass/volume] by Automated count Erythrocyte 13.2 % 11.5-14. [facility] - distribution 0 Good width [Ratio] by Buddhist Automated count Hospital Platelets 193 K/uL 130-400 [facility] - [#/volume] in Good Blood by Buddhist Automated count [facility] Platelet mean 8.6 FL 9.2-11.8 Below low normal [facility] - volume [Entitic Good volume] in Blood Buddhist by Automated Hospital count Nucleated 0.0 PER 0 [facility] - erythrocytes/100 100 WBC Good leukocytes Buddhist [Ratio] in Blood [facility] Nucleated 0.00 0.0-0.01 [facility] - erythrocytes K/uL Good [#/volume] in [facility] Segmented 79 % 48.0-72. Above high normal [facility] - neutrophils/100 0 [facility] leukocytes in [facility] Lymphocytes/100 10 % 18.0-40. Below low normal [facility] - leukocytes in 0 [facility] Monocytes/100 8 % 2.0-12.0 [facility] - leukocytes in [facility] Eosinophils/100 1 % 0.0-7.0 [facility] - leukocytes in [facility] Basophils/100 0 % 0.0-3.0 [facility] - leukocytes in [facility] Immature 1 % 0-0.5 Above high normal [facility] - granulocytes/100 Good leukocytes in [facility] Automated count Segmented 6.4 K/UL 2.3-7.6 [facility] - neutrophils Good [#/volume] in [facility] Lymphocytes 0.8 K/UL 0.9-4.2 Below low normal [facility] - [#/volume] in [facility] Monocytes 0.7 K/UL 0.1-1.7 [facility] - [#/volume] in [facility] Eosinophils 0.1 K/UL 0.0-1.0 [facility] - [#/volume] in [facility] Basophils 0.0 K/UL 0.0-0.4 [facility] - [#/volume] in [facility] Blood [facility] Immature 0.1 K/UL 0.0-0.17 [facility] - granulocytes Good [#/volume] in [facility] by [facility] Automated count Differential [facility] - cell count [facility] method Blood [facility] ID Date Data Source [id number] 09/15/2019 09:44:01 AM EDT [facility] Clinical Indications/Reason For Exam: pa in.AP, [...] Supporting Document(s ) ID Date Data Source [id number] 09/15/2019 09:41:40 AM EDT [facility] THORACIC SPINE 4 views.History: Pain.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 Signing date/time: 09/15/2019 9:41 AMSigned by: CURTIS VARMA Name Value Range Interpretation Code Description Data Melani rce(s) Supporting Document(s ) ID Date Data Source [id number] 09/15/2019 09:40:53 AM EDT [facility] Clinical indications with reason for exa [...] Value Range Interpretation Code Description Data [facility] rce(s) Supporting Document(s ) ID Date Data Source [id number] 08/17/2019 08:25:20 AM [facility] History: Chest PainTechnique: Portable c [...] Value Range Interpretation Code Description Data [facility] rce(s) Supporting Document(s ) ID Date Data Source [id number] 08/16/2019 11:12:22 PM [facility] The [...] m orbidity or mortality cardiac cath at [facility] approx 6-8 months ago Other unknown and [...] e Gets together: Not on file Attends temple service: Not on file 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 [...] Calculation (Bezet) 429 ms Ca lculated P Ehrenberg 36 degrees Calculated R Ehrenberg 77 degrees Calculated T Ehrenberg -24 degrees Diagnosis Sinus tachycardiaBorderline T abnormalities, [...] Time: 08/16/19 9:00 PMResult Value Ref Range [place] level 0.21 (L) 0.6 - 1.2 MMOL/LEKG: sinus tach ycardia, rate 109Radiology:CXR: no acute findings<EMERGENCY DEPARTMENT CASE [facility]>Impression/Differential Diagnosis: Allergic reaction allergic, drug reactio n,ACS, pulmonary embolismED Course: Patient presents short of breath and mildly tach ycardic complainingof new onset rash to face anterior chest and posterior chest.Plan: Labs, chest x-ray, EKG, troponin, d-dimer, prednisone, Pepcid, gvopackawux43:04 PM patient verbalizes relief of symptoms rash has faded. He denies chestpain he denie s shortness of breath.Patient was advised that we cannot rule out allergic drug re action as he isrecently just restarted taking his lithium. Patient advised to discuss takinglithium with his psychiatrist as soon as possible.Patient reassessed at [facility] by me. Feels better at present, wants to go home.Patient was told to follow up with the primary doctor in 1-2 days and return [facility] ED for any worsening severe [...] time of disposition: stableI have reviewed the [facility] medications:Prior to Admission medicationsMedication Sig Start Date [...] 6 mg by mouth daily. 07/07/19 Yes P rovider, Historicalcyclobenzaprine (FLEXERIL) 10 mg tablet Take 1 Tab [...] 36N*ENCOUNTER 08/16/2019 10:46:05 PM EST [facility] [id number] [facility] EMERGENCY DEPARTMENT [address] [facility] [address] [phone] Maxwell Bray (Male) [id number] ES I 3 ED Dispo:DISCHARGE Chief Complaint: Allergic Reaction Diagnosis: Allergic reaction, initial encounter [] Allergic reaction to drug, in itial encounter [] Current Providers: Attending: Javier Quezada Nurse Practitioner: Javier Ward Primary Nurse: HARINDER AcuñaN: [id number] [employer] [id number] - [facility] [employer] MrnMRN: [id number] Print Group [id number] - [facility] [employer] Age Sex 1970 AGE 49 SEX Male Primary Care Provider: Ritika Canas MD Livjfogfg: (No Known Allergies)Date Reviewed: 08/16/2019Reviewed by: Zahraa Prince RN - Review CompleteED Provider Notes: No not es of this type exist for this encounter.ED Orders BUPROPION XL 300 MG 24 HR TAB [#[id number]] Priority: Routine Class: Historical Med LITHIUM CARBONATE 150 MG CAP [#[id number]] Priority: Routine Class: Historical Med FAMOTIDINE 20MG + NS 10 ML IV [#[id number]] Priority: STAT Class: Normal H2RA INDICATION -> Adverse reaction/Anaphylaxis SODIUM CH LORIDE 0.9 % IV [#[id number]] Priority: STAT Class: Normal METHYLPREDNISOLONE (PF) 125 MG/2 ML * [#[id number]] Priority: STAT Class: Normal ASPIRIN 81 MG CHEWABLE TAB [# [id number]] Priority: STAT Class: Normal PREDNISONE 50 MG TAB [#[id number]] Bridgette ority: Routine Class: Normal [id number] DOLLY DRIVER - ED ONLY [#[id number]] Priority: STAT C lass: Hospital Performed Standing Order Information Remaining Occurrences:0/1 Interval:Contin uous Last released:08/16/2019 Released orders: Sat Aug 16, 2019 9:02 PM by: Javier POLLOCK Type: -> Bedside [id number] OBTAIN OLD EKG [#[id number]] Priority: Routi ne Class: Hospital Performed Standing Order Information Remaining Occurrences:0/1 Inter haile:ONE TIME Last released:08/16/2019 Released orders: Sat Aug 16, 2019 9:02 PM by: INDIO WARD [id number] PULSE OXIMETRY CONTINUOUS [#[id number]] Priority: STAT Class: H ospital Performed Standing Order Information Remaining Occurrences:0/1 Interval:CONTIN UOUS Last released:08/16/2019 Released orders: Sat Aug 16, 2019 9:02 PM by: Javier POLLOCK [id number] DOLLY DRIVER - ED ONLY [#[id number]] Priority: STAT Class: Hospital Perfo rmed Type: -> Bedside Released on: 08/16/2019 9:02 PM [id number] OBTAIN OLD EKG [#[id number]] Priority: STAT Class: Hospital Performed Released on: 08/16/2019 9:02 PM [id number] PULSE OXIMETRY CONTINUOUS [#[id number]] Priority: STAT Class: Hospital Performed Relea sed on: 08/16/2019 9:02 PM [id number] DIET NPO [#[id number]] Priority: STAT Cla ss: Hospital Performed Standing Order Information Remaining Occurrences:0/1 Interval:DIET E FFECTIVE NOW Last released:08/16/2019 Released orders: Sat Aug 16, 2019 9:02 PM by: INDIO WARD NPO options: -> With Meds [id number] DIET NPO [#[id number]] Priority: STAT Class: Hospital Performed NPO options: -> With Meds Released on: 08/16/2019 9:02 PM [id number] SALINE LOCK IV [#[id number]] Priority: STAT Class: Hospital Performe d Standing Order Information Remaining Occurrences:0/1 Interval:ONE TIME Last released: 08/16/2019 Released orders: Sat Aug 16, 2019 9:02 PM by: INDIO POLLOCK [id number] SALIN E LOCK IV [#[id number]] Priority: STAT Class: Hospital Performed Released on : 08/16/2019 9:02 PM [id number] METABOLIC PANEL, COMPREHENSIVE [#[id number]] Priority: STAT Class: E R Collect Standing Order Information Remaining Occurrences:0/1 Interval:ONE TIME Last r eleased:08/16/2019 Released orders: Sat Aug 16, 2019 9:02 PM by: INDIO POLLOCK [id number] CBC WITH AUTOMATED DIFF [#[id number]] Priority: STAT Class: ER Collect Standing Order Info rmation Remaining Occurrences:0/1 Interval:ONE TIME Last released:08/16/2019 Released orders: Sat Aug 16, 2019 9:02 PM by: INDIO POLLOCK [id number] TROPONIN I [#[id number]] Priority: STAT Class: ER Collect Standing Order Information Remaining Occurre nces:0/1 Interval:ONE TIME Last released:08/16/2019 Released orders: Sat Aug 16 9:02 PM by: INDIO POLLOCK [id number] MAGNESIUM [#[id number]] Priorit y: STAT Class: ER Collect Standing Order Information Remaining Occurrences:0/1 Inter haile:ONE TIME Last released:08/16/2019 Released orders: Sat Aug 16, 2019 9:02 PM by: INDIO WARD [id number] D DIMER [#[id number]] Priority: STAT Class: E R Collect Standing Order Information Remaining Occurrences:0/1 Interval:ONE TIME Last r eleased:08/16/2019 Released orders: Sat Aug 16, 2019 9:02 PM by: INDIO POLLOCK [id number] METABOLIC PANEL, COMPREHENSIVE [#[id number]] Priority: STAT Class: ER Collect Specimen Source: Plas ma Specimen Collected: 08/16/2019 9:00 PM Resulting Agency: [facility] Test ID: MPL Released on: 08/16/2019 9:02 PM [id number] CBC WITH AUTOMATED DIFF [#[id number]] Prior ity: STAT Class: ER Collect Specimen Source: Whole Blood Specimen Collected: 08/16/2019 9:00 PM Resultin g Agency: [facility] Test ID: [id number] Released on: 08/16/2019 9:02 PM [id number] TROPONIN I [#[id number]] Priority: STAT Class: ER Collect Specimen Source : Plasma Specimen Collected: 08/16/2019 9:00 PM Resulting Agency: [facility] Test ID: TROIP Released on: 08/16/2019 9:02 PM [id number] MAGNESIUM [#[id number]] Priority: STAT Class: ER Collect Specimen Source: Plasma Specimen Collected: 08/16/2019 9:00 PM Resultin g Agency: [facility] Test ID: MGPL Released on: 08/16/2019 9:02 PM [id number] D DIMER [#[id number]] Priority: STAT Class: ER Collect Specimen Source : Plasma Specimen Collected: 08/16/2019 9:00 PM Resulting Agency: [facility] Test ID: [id number] Released on: 08/16/2019 9:02 PM [id number] LITHIUM [#[id number]] Priority: STAT Class: ER Collect Standing Order Information Remaining Occurrences:0/1 Inter haile:ONE TIME Last released:08/16/2019 Released orders: Sat Aug 16, 2019 9:02 PM by: INDIO WARD [id number] LITHIUM [#[id number]] Priority: STAT Class: E R Collect Specimen Source: Serum Specimen Collected: 08/16/2019 9:00 PM Resulting Agency: [facility] Test ID: LI Released on: 08/16/2019 9:02 PM [id number] EKG, 12 LEAD, INITIAL [#[id number]] Priority: STAT Class: Hospital Performed Standing Order Information Remainin g Occurrences:0/1 Interval:ONE TIME Last released:08/16/2019 Released orders : Sat Aug 16, 2019 9:02 PM by: INDIO POLLOCK Reason for Exam: -> Chest Pain [id number] EKG, 12 LEAD, INITIAL [#[id number]] Priority: STAT Class: Hospital Performed Resulting Age ncy: GSH MUSE Test ID: [id number] Reason for Exam: -> Chest Pain Released on: 08/16/2019 9:02 PM [id number] XR CHEST PORT [#[id number]] Priority: STAT Class: Hospital Performed Stand ing Order Information Remaining Occurrences:0/1 Interval:ONE TIME Last released:0 08/16/2019 Released orders: Sat Aug 16, 2019 9:02 PM by: INDIO POLLOCK Reason for Exam -> Chest Pain [id number] XR CHEST PORT [#[id number]] Priority: STAT Class: H ospital Performed Resulting Agency: [facility] Test ID: [id number] Reason for Exam -> Chest Pain Rele ased on: 08/16/2019 9:02 JORDYMaxwell waddell MR#: [id number] * Rm: [id number] Ht: 5' 10" Wt: 280 lb Code: Prior Iso:Diagnosis:Allergies: No Known Allergies -------- Current as of: 08/16/19 2246 GI=Given IC=IV Complet ed NB=New Bag --aspirin (ASPIRIN) tablet 325 mg #[id number] Admin Amount: 1 Tab (1 x 325 mg Tab) Ordered Dose: 325 mg Route: Oral Freq: ONCE Start Date: 12/24/13 No administration times (back 96 hours, ahead 96 hours). ------diphenhydrAMINE (BENADRYL) capsule 50 mg #[id number] Admin Amount: 1 Cap (1 x 50 mg Cap) Ordered Dose: 50 mg Route: Ora l Freq: NOW Start Date: 12/24/13 No administration times (back 96 hours, ahe ad 96 hours). ------diazepam (VALIUM) tablet 5 mg #[id number] Admin Amount: 1 Tab (1 x 5 mg Tab) Ordered Dose: 5 mg Route: Oral Freq: ON CE Start Date: 12/24/13 No administration times (back 96 hours, ahead 96 hours). ------lidocaine (XYLOCAINE) 10 mg/mL (1 %) injection 1-30 mL #[id number] Admin Amount: 1-30 mL Ordered Dose: 1-30 mL Route: IntraDERMal Freq: ONCE Start Date: 12/24/13 No administration times (back 96 hours, ahead 96 hours). ------heparin (PF) 2 units/ml in NS infusion 2,000 Units #[id number] Admin Amount: 1,000 mL = 2,000 Units of 2 Units/mL Ordered Dose: 1,000 mL Ro poarch: Irrigation Freq: ONCE Start Date: 12/24/13 No administration times (back 96 hours, ahead 96 hours). ------heparinized saline 2 units/mL infusion 1,000 Units #[id number] Admin Amount: 500 mL = 1,000 Units of 2 Units/mL Ordered Dose: 500 mL Ro poarch: IntraarTERial Freq: ONCE Start Date: 12/24/13 No administration times (back 96 hours, ahead 96 hours). ------0.9% sodium chloride infusion #[id number] Ordered Dose: 75 mL/hr Route: IntraVENous Freq: CONTINUOUS Start Date: 12/24/13 Rate: 75 mL/hr Duration: No administration times (back 96 hours, ahead 96 hours). ------ioversol (OPTIRAY) 320 mg iodine/mL contrast injection 1-100 mL #[id number] Admin Amount: 1-100 mL Ordered Dose: 1-100 mL Route: IntraVENous Freq: RAD O NCE Start Date: 12/24/13 No administration times (back 96 hours, ahead 96 hours).Maxwell Bray MR#: [id number] * Rm: [id number]: 5' 10" Wt: 280 lb Co de: Prior Iso:Diagnosis:Allergies: No Known Allergies -------- Current as of: 08/16/192245 GI=Given IC=IV Complet ed NB=New Bag --gadobutrol (GADAVIST) contrast solution 1-10 mL #[id number] Admin Amount: 1-10 mL Ordered Dose: 1-10 mL Route: IntraVENous Freq: RAD O NCE Start Date: 01/13/14 No administration times (back 96 hours, ahead 96 hours). ------sodium chloride (NS) flush 5-10 mL #[id number] Admin Amount: 5-10 mL Ordered Dose: 5-10 mL Route: IntraVENous Freq: RAD ONCE Start Date: 01/13/14 No administration times (back 96 hours, ahead 96 hours). ------sodium chloride (NS) 0.9 % flush #[id number] Ordered Dose: Route: Freq: Start Date: 01/13 No administration times (back 96 hours, ahead 96 hours). ------morphine injection 2 mg #[id number] Admin Amount: 1 mL = 2 mg of 2 mg/mL Ordered Dose: 2 mg Route: IntraVENous Freq: NOW Start Date: 03/13/15 No administration times (back 96 hours, ahe ad 96 hours). ------influenza vaccine (4 yr+)(PF) (FLUCELVAX QUAD) inj ection 0.5*#[id number] Admin Amount: 0.5 mL Ordered Dose: 0.5 mL Route: IntraMUSCular Freq: PRIOR TO DISCHARGE Start Date: 03/30/16 No administration times (back 96 hours, ahead 96 hours). ------oxyCODONE-acetaminophen (PERCOCET) 5-325 mg per tablet 1 Tab #[id number] Admin Amount: 1 Tab Ordered Dose: 1 Tab Route: Oral Freq: NOW Start Date: 09/07/17 No administration times (back 96 hours, ahead 96 hours). ------barium sulfate (READICAT) 2.1 % (w/v), 2.0 % (w /w) oral suspension 9*#[id number] Admin Amount: 900 mL Ordered Dose: 900 mL Route: Oral Delgado q: RAD ONCE Start Date: 10/15/17 No administration times (back 96 hours, ahead 96 hours). ------iopamidol (ISOVUE 300) 61 % contrast injection 100 mL #[id number] Admin Amount: 100 mL Ordered Dose: 100 mL Route: IntraVENous Freq: RAD ONC E Start Date: 10/15/17 No administration times (back 96 hours, ahead 96 hours).Maxwell Bray MR#: [id number] * Rm: [id number]: 5' 10" Wt: 280 lb Code: Prior Iso:Diagnosis:Allergies: No Known Allergies -------- Current as of: 08/16/192245 GI=Given IC=IV Complet ed NB=New Bag --risperiDONE (RisperDAL m-tabs) disintegrating tablet 1 mg #[id number] Admin Amount: 1 Tab (1 x 1 mg Tab) Ordered Dose: 1 mg Route: Oral Freq: ONCE Start Date: 12/24/17 No administration times (back 96 hours, ahead 96 hours). ------ALPRAZolam (XANAX) tablet 2 mg #[id number] Admin Amount: 4 Tab (4 x 0.5 mg Tab) Ordered Dose: 2 mg Route: Ora l Freq: NOW Start Date: 12/24/17 No administration times (back 96 hours, ahe ad 96 hours). ------lamoTRIgine (LaMICtal) tablet 100 mg #[id number] Admin Amount: 1 Tab (1 x 100 mg Tab) Ordered Dose: 100 mg Route: Oral Delgado q: ONCE Start Date: 12/24/17 No administration times (back 96 hours, ahead 96 hours). ------OLANZapine (ZyPREXA zydis) disintegrating tablet 5 mg #[id number] Admin Amount: 1 Tab (1 x 5 mg Tab) Ordered Dose: 5 mg Route: Oral Delgado q: ONCE Start Date: 12/25/17 No administration times (back 96 hours, ahead 96 hours). ------LORazepam (ATIVAN) tablet 2 mg #[id number] Admin Amount: 4 Tab (4 x 0.5 mg Tab) Ordered Dose: 2 mg Route: Ora l Freq: NOW Start Date: 12/25/17 No administration times (back 96 hours, [facility] ad 96 hours). ------LORazepam (ATIVAN) injection 1 mg #[id number] Admin Amount: 0.5 mL = 1 mg of 2 mg/mL Ordered Dose: 1 mg Route: Int TrevorENous Freq: NOW Start Date: 12/25/17 No administration times (back 96 hours, e ad 96 hours). ------barium sulfate (EZ PAQUE) 96 % (w/w) contrast suspension 17 6 g #[id number] Admin Amount: 176 g Ordered Dose: 176 g Route: Oral Freq: RAD ONCE Start Date: 08/02/18 No administration times (back 96 hours, ahead 96 hours). ------barium sulfate (EZ PAQUE) 96 % (w/w) contrast s uspension 176 g #[id number] Admin Amount: 176 g Ordered Dose: 176 g Route: Oral Delgado q: RAD ONCE Start Date: 08/02/18 No administration times (back 96 hours, ahead 96 hours).Luisito eileenerinArieMaxwell Anam MR#: [id number] * Rm: [id number]: 5' 10" Wt: 280 lb Co de: Prior Iso:Diagnosis:Allergies: No Known Allergies -------- Current as of: 08/16/192245 GI=Given IC=IV Complet ed NB=New Bag --aspirin chewable tablet 162 mg #[id number] Admin Amount: 2 Tab (2 x 81 mg Tab) Ordered Dose: 162 mg Route: Oral Freq: NOW Start Date: 08/10/19 No administration times (back 96 hours, ahead 96 hours). ------famotidine (PF) (PEPCID) 20 mg in 0.9% sodium chloride 10 mL inje cti*#[id number] Admin Amount: 20 mg Ordered Dose: 20 mg Route: IntraVENous Freq: EVERY 12 H OURS Start Date: 08/16/19 Administration times (back 96 hours, ahead 96 hours): 08/16/19: 2119G I 08/17/19: 89908/18/19: 89908/19/19: 89908/20/19: 899 2099 ---0.9% sodium chloride infusion 1,000 mL #[id number] Admin Amount: 1,000 mL Ordered Dose: 1,000 mL Route: IntraVENous Freq: ONC E Start Date: 08/16/19 Rate: 1,000 mL/hr Duration: Administration times (back 96 hours, ahead 96 hours): 08/16/19: 2119NB 2245IC -----methylPREDNISolone (PF) (Solu-MEDROL) injection 125 mg #[id number] Admin Amount: 2 mL = 125 mg of 125 mg/2 mL Ordered Dose: 125 mg Route: Int raVENous Freq: NOW Start Date: 08/16/19 Administration times (back 96 hours, ahe ad 96 hours): 08/16/19: 2118GI -----aspirin chewable tablet 162 mg #[id number] Admin Amount: 2 Tab (2 x 81 mg Tab) Ordered Dose: 162 mg Route: Oral Delgado q: NOW Start Date: 08/16/19 Administration times (back 96 hours, ahead 96 hours): 08/16/19: ED Current OP MedicationsbuPROPion XL (WELLBUTRIN XL) 300 mg XL tabletSig:Take 300 mg by mouth every morning.Dispense Amount:Start Date:End Date:Doc. Provider : Paul Bradford MDlithium carbonate 150 mg capsuleSig:Take 300 mg by mouth three (3) times daily.Dispense [place]keye unt:Start Date:End Date:Doc. Provider: Paul Bradfodr MDpredniSONE (DELTASONE) 50 mg tabletSig:Take 1 Tab [...] 10 DAYSDispe nse Amount:Start Date:07/17/2018End Date:Doc. Provider: Provider, DaniloclonazePAM (KLONOPIN) 2 [...] With:Ritika Canas M DDetails:In 2 daysComments:Contact Info:[address] [facility] [phone]-up With:[facility] EM[facility] DEPARTMENTDetails:Comments:As needed, If symptoms worsenContact Info:[address] [facility] [phone] Name Value Range Interpretation Code Description Data Melani rce(s) Supporting Document(s ) ID Date Data Source [id number] 08/16/2019 10:45:45 PM [facility] IV site clean/dry/intact, gauze dressing applied. Pt received written and verbaldischarge instructions. Verbalize d understanding of same. Ambulated out of EDwith steady gait and in no distress. Name Value Range Interpretation Code Description Data Melani rce(s) Supporting Document(s ) ID Date Data Source [id number] 08/16/2019 09:58:14 PM [facility] Name Value Range Interpretation Description Data Sup porting Code Source(s) Document(s ) [place] 0.21 0.6-1.2 Below low normal [employer] [Moles/volu MMOL/L [facility]] in Hospital Serum or Plasma ID Date Data Source [id number] 08/16/2019 09:52:19 PM [facility] Name Value Range Interpretation Code Description Data Melani rce(s) Supporting Document(s ) Fibrin <500 [facility] - Good D-dimer FEU [facility] [Mass/volume] Hospital in Platelet poor plasma (NOTE)Combination of a D-Dimer result wi thin the reference range and a lowclinical pretest probability has good negative pr edictive value fordeep venous thrombosis.If results are utilized for VTE evaluation, <500 ng/ml is consideredto be negative. ID Date Data Source [id number] 08/16/2019 09:44:39 PM EST [facility] Name Value Range Interpretation Description Data Sup porting Code Source(s) Document(s ) Troponin 0.00-0.05 [facility] - Good I.cardiac [facility] [Mass/volume Hospital ] in Serum or Plasma [...] to 1.50 ng/mL ID Date Data Source [id number] 08/16/2019 09:44:39 PM EST [facility] Value Range Interpretation Description Data Sup porting Code Source(s) Document(s ) Sodium 138 136-145 [facility] - Good [Moles/volume] mmol/L Buddhist in Serum or Hospital Plasma Potassium 3.4 3.5-5.1 Below low normal [facility] - Good [Moles/volume] mmol/L Buddhist in Serum or Hospital Plasma Chloride 108 98-107 Above high normal [facility] - Good [Moles/volume] mmol/L Buddhist in Serum or Hospital Plasma Carbon 20 21-32 Below low normal [facility] - Good dioxide, total mmol/L Buddhist [Moles/volume] Hospital in Serum or Plasma Anion gap in 14 10-20 [facility] - Good Serum or mmol/L [facility] Hospital Glucose 105 74-106 [facility] - Good [Mass/volume] mg/dL Buddhist in Serum or Hospital Plasma Urea nitrogen 20 mg/dL 7-18 Above high normal [facility] - Good [Mass/volume] Buddhist in Serum or Hospital Plasma Creatinine 0.90 0.70-1.3 [facility] - Good [Mass/volume] mg/dL 0 Buddhist in Serum or Hospital Plasma Glomerular >60 [facility] - Good filtration Buddhist rate/1.73 sq M Hospital predicted among blacks [Volume Rate/Area] in Serum or Plasma by Creatinine-bas ed formula (MDRD) Glomerular >60 [facility] - Good filtration Buddhist rate/1.73 sq M Hospital predicted among non-blacks [Volume Rate/Area] in Serum or Plasma by Creatinine-bas ed formula (MDRD) (NOTE)Estimated GFR is calculated using the Modification of Diet in RenalDisease (MDRD) Study equation, reported for both Americans(GFRAA) and non- Americans (GFRNA), and normalized to 1.7 3l9icaw surface area. The physician must decide which [...] normal [facility] - Good Serum or Plasma [facility] ital Bilirubin.total 0.3 mg/dL 0.2-1.0 [facility] - Good [Mass/volume] in Serum or [facility] Plasma Alanine aminotransferase 37 U/L 13-61 [facility] - Good [Enzymatic activity/volume] [facility] in Serum or Plasma Aspartate aminotransferase 22 U/L 15-37 [facility] HS - Good [Enzymatic activity/volume] [facility] in Serum or Plasma by With P-5'-P Alkaline phosphatase 98 U/L 45-117 [facility] - G ood [Enzymatic activity/volume] [facility] in Serum or Plasma Protein [Mass/volume] in 7.0 g/dL 6.4-8.2 [facility] - Good Serum or Plasma [facility] ital Albumin [Mass/volume] in 3.7 g/dL 3.5-4.7 [facility] - Good Serum or Plasma by [facility] Bromocresol purple (BCP) dye binding method Globulin [Mass/volume] in 3.3 g/dL 1.7-4.7 [facility] - Good Serum by calculation [facility] Albumin/Globulin [Mass 1.1 0.7-2.8 [facility] - Good Ratio] in Serum or Plasma [facility] ID Date Data Source [id number] 08/16/2019 09:44:39 PM EST [facility] Name Value Range Interpretation Description Data Sup porting Code Source(s) Document(s ) Magnesium 2.3 mg/dL 1.6-2.6 [facility] - Good [Mass/volume] Buddhist in Serum or [facility] Plasma ID Date Data Source [id number] 08/16/2019 09:23:23 PM EST [facility] Name Value Range Interpretation Description Data Sup porting Code Source(s) Document(s ) Leukocytes 7.6 K/uL 4.8-10.6 [facility] - [#/volume] in Good Blood by Buddhist Automated count Hospital Erythrocytes 4.97 4.70-6.0 [facility] - [#/volume] in M/uL 0 Good Blood by [facility] Automated count Hospital Hemoglobin 15.2 14.0-18. [facility] - [Mass/volume] in g/dL 0 Good Blood [facility] Hematocrit 45.0 % 42.0-52. [facility] - [Volume 0 Good Fraction] of Buddhist Blood by Hospital Automated count Erythrocyte mean 90.5 FL 81.0-94. [facility] - corpuscular 0 Good volume [Entitic Buddhist volume] by Hospital Automated count Erythrocyte mean 30.6 PG 27.0-35. [facility] - corpuscular 0 Good hemoglobin Buddhist [Entitic mass] [facility] by Automated count Erythrocyte mean 33.8 30.7-37. [facility] - corpuscular g/dL 3 Good hemoglobin [facility] [Mass/volume] by Automated count Erythrocyte 13.0 % 11.5-14. [facility] - distribution 0 Good width [Ratio] by [facility] Automated count Hospital Platelets 183 K/uL 130-400 [facility] - [#/volume] in [facility] Blood by Buddhist Automated count [facility] Platelet mean 8.5 FL 9.2-11.8 Below low normal [facility] - volume [Entitic Good volume] in Blood Buddhist by Automated Hospital count Nucleated 0.0 PER 0 [facility] - erythrocytes/100 100 WBC Good leukocytes Buddhist [Ratio] in Blood [facility] Nucleated 0.00 0.0-0.01 [facility] - erythrocytes K/uL Good [#/volume] in [facility] Segmented 68 % 48.0-72. [facility] - neutrophils/100 0 Good leukocytes in [facility] Lymphocytes/100 19 % 18.0-40. [facility] - leukocytes in 0 [facility] Monocytes/100 7 % 2.0-12.0 [facility] - leukocytes in [facility] Eosinophils/100 5 % 0.0-7.0 [facility] - leukocytes in [facility] Basophils/100 1 % 0.0-3.0 [facility] - leukocytes in [facility] Immature 1 % 0-0.5 Above high normal [facility] - granulocytes/100 Good leukocytes in Buddhist Blood by Hospital Automated count Segmented 5.2 K/UL 2.3-7.6 [facility] - neutrophils Good [#/volume] in [facility] Lymphocytes 1.5 K/UL 0.9-4.2 [facility] - [#/volume] in [facility] Monocytes 0.6 K/UL 0.1-1.7 [facility] - [#/volume] in [facility] Eosinophils 0.3 K/UL 0.0-1.0 [facility] - [#/volume] in [facility] Basophils 0.0 K/UL 0.0-0.4 [facility] - [#/volume] in [facility] Immature 0.0 K/UL 0.0-0.17 [facility] - granulocytes Good [#/volume] in Buddhist Blood by Hospital Automated count Differential [facility] - cell count Good method - Blood [facility] ID Date Data Source [id number] 08/16/2019 08:50:30 PM [facility] sudden onset of difficulty breathing and rash while eating nepali food, rashacross face and chest slightly raised, no vesicles, denies any chest pain deniesany itching at this time. Went to urgent care, recei nataliia benadryl 50 mg IMfrom EMS. Name Value Range Interpretation Code Description Data [facility] rce(s) Supporting Document(s ) ID Date Data Source [id number] 08/11/2019 08:03:02 AM [facility] History:Chest pain. Shortness of breath. [...] Name Value Range Interpretation Code Description Data [facility] Document[facility] ) ID Date Data Source [id number] 08/11/2019 04:22:14 AM [facility] The [...] of morbidity or mortality cardiac cath at [facility] approx 6-8 months ag o Other unknown [...] medical: Not on fileTobacco Use Smoking status: Neve r Smoker Smokeless tobacco: Never UsedSubstance and Sexual Activity Alcoh ol use: No Frequency: Never Drug use: No Sexual activity: NeverLifestyle Physica l activity: Days per week: Not on file Minutes per session: Not on file Stress : Not on fileRelationships Social connections: Talks on phone: Not on oilvier e Gets together: Not on file Attends temple service: Not on file 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 [...] visualization of images, tracings, or sp ecimens: yesProcedSaul Alvarado Priti V, MD, reviewed the patient's past history, all ergies and homemedications as documented in the nursing chart.Labs:Recent Results (f rom the past 12 hour(s))EKG, 12 LEAD, INITIAL Collection Time: 08/10/19 10:14 PMResult Value Ref Range Ventricular Rate 102 BPM Atrial Rate 102 BPM P-R Interval 182 ms QRS Duration 88 ms Q-T Interval 334 ms QTC Calculation (Bezet) 435 ms Calculated P Ehrenberg 55 degrees Calculated R Ehrenberg 34 degrees Calculated T Ehrenberg 9 degrees Diagnosis S inus tachycardiaOtherwise normal [...] Time: 08/11/19 12:01 AMResult Value Ref Range [place] level <0.20 (L) 0.6 - 1.2 MMOL/LLACTIC [...] mg by mouth two (2) times a day.Suzette, MD Paulfluoxetine HCl (PROZAC PO) Take 60 mg by mouth daily. Paul Bradford MDBorker, Priti V, MD I, Rachel Stone, am [...] 36N*ENCOUNTER 08/11/2019 01:42:54 AM EST [facility] [id number] [facility] EM[facility] [address] [place] [address] [phone]/ [place] yangMaxwell mackey (Male) [phone] JOSE 2 ED Dispo:DISCHARGE Chief Complaint: Chest Pain, Shortne ss of Breath Diagnosis: Dyspnea, unspecified type [] Current Providers: Yeimy cochran: Javier Quezada Primary Nurse: ELIS WilsonN: [id number] [facility] [id number] [facility] MrnMRN: [id number] [employer] [phone] - Bs i [employer] Age SexDOB 1970 AGE 49 SEX Male Primary Care Provider: Ritika Canas MD Phone: [phone]: (No Known Allergies)Date Reviewed: 08/10/2019Reviewed by: Chiquis Christianson CompleteED Provider Notes: No notes of this type exist for this encounter.ED Orders [id number] E KG, 12 LEAD, INITIAL [#[id number]] Priority: STAT Class: Hospital Performed Stand ing Order Information Remaining Occurrences:0/1 Interval:ONE TIME Last released:0 08/10/2019 Released orders: Sun Aug 10, 2019 10:17 PM by: CHIQUIS CHRISTIANSON Reason for Exam: -> CP SOB [id number] EKG, 12 LEAD, INITIAL [#[id number]] Priority: STAT Class: Hospital Performed Specimen Collected: 08/10/2019 10:14 PM Resulting Agency: [email or web address] M[facility] Test ID: [id number] Reason for Exam: -> CP SOB Released on: 08/10/2019 10:17 PM [id number] EKG, 12 LE AD, INITIAL [#[id number]] Priority: STAT Class: Hospital Performed Standing Or mariano Information Remaining Occurrences:0/1 Interval:ONE TIME Last released:0 08/10/2019 Released orders: Connell Aug 10, 2019 11:51 PM by: MAYANK QUEZADA V Reason fo r Exam: -> Chest Pain [id number] EKG, 12 LEAD, INITIAL [#[id number]] Priority: STAT C lass: Hospital Performed Resulting Agency: [facility] Test ID: [id number] Reason for Exam: -> Chest P ain Released on: 08/10/2019 11:51 PM [id number] DOLLY DRIVER - ED ONLY [#[id number]] Priority: STAT Class: Hospital Performed Standing Order Information Remaining Occurre nces:0/1 Interval:Continuous Last released:08/10/2019 Released orders : Connell Aug 10, 2019 11:51 PM by: MAYANK QUEZADA V Type: -> Bedside [id number] PULSE OXIMETR Y CONTINUOUS [#[id number]] Priority: STAT Class: Hospital Performed Standing Or mariano Information Remaining Occurrences:0/1 Interval:CONTINUOUS Last released :08/10/2019 Released orders: Connell Aug 10, 2019 11:51 PM by: MAYANK QUEZADA V [id number] PULSE OXIMETRY SPOT CHECK [#[id number]] Priority: STAT Class: Hospital Performe d Standing Order Information Remaining Occurrences:0/1 Interval:ONE TIME Last r eleased:08/10/2019 Released orders: Connell Aug 10, 2019 11:51 PM by: MAYANK QUEZADA V NU [id number] OBTAIN OLD EKG [#[id number]] Priority: Routine Class: Hospital Perfo rmed Standing Order Information Remaining Occurrences:0/1 Interval:ONE TI ME Last released:08/10/2019 Released orders: Connell Aug 10, 2019 11:51 PM by: MAYANK QUEZADA V [id number] DOLLY DRIVER - ED ONLY [#[id number]] Priority: STAT Class: H ospital Performed Type: -> Bedside Released on: 08/10/2019 11:51 PM [id number] PULSE OXIM ETRY CONTINUOUS [#[id number]] Priority: STAT Class: Hospital Performed Released on : 08/10/2019 11:51 PM [id number] PULSE OXIMETRY SPOT CHECK [#[id number]] Priority: STAT C lass: Hospital Performed Released on: 08/10/2019 11:51 PM [id number] OBTAIN OLD EKG [#[id number]] Priority: STAT Class: Hospital Performed Released on: 08/10/2019 11: 51 PM [id number] RT--OXYGEN CANNULA [#[id number]] Priority: STAT Class: H ospital Performed Standing Order Information Remaining Occurrences:0/1 Interval:CONTIN UOUS Last released:08/10/2019 Released orders: Arabella Aug 10, 2019 11:51 PM by: MAYANK PRADO V Comment:TITRATE UP TO 4 L / MINUTE TO MAINTAIN O2 SATS GREATER THAN OR EQUAL TO 94% LPM -> 2 Indications for O2? -> CHEST PAIN [id number] RT--OXYGEN CANNULA [#[id number]] Priority: STAT Class: Hospital Performed Comment:TITRATE UP TO 4 L / MINUTE TO MAINTAIN O2 SATS GREATER THAN OR EQUAL TO 94% LPM -> 2 Indications fo r O2? -> CHEST PAIN Released on: 08/10/2019 11:51 PM [id number] DIET NPO [#[id number]] Priority: STAT Class: Hospital Performed Standing Order Information Remaining Occurrences:0/1 Interval:DIET EFFECTIVE NOW Last released:08/10 Released orders: Arabella Aug 10, 2019 11:51 PM by: MAYANK QUEZADA V NPO options: - > With Meds [id number] DIET NPO [#[id number]] Priority: STAT Class: H ospital Performed NPO options: -> With Meds Released on: 08/10/2019 11:51 PM [id number] SALINE LOCK IV [#[id number]] Priority: STAT Class: Hospital Performed Standing O rder Information Remaining Occurrences:0/1 Interval:ONE TIME Last released:0 08/10/2019 Released orders: Arabella Aug 10, 2019 11:51 PM by: MAYANK QUEZADA V IVT11 SALI NE LOCK IV [#[id number]] Priority: STAT Class: Hospital Performed Relea sed on: 08/10/2019 11:51 PM [id number] METABOLIC PANEL, COMPREHENSIVE [#[id number]] Bridgette ority: STAT Class: ER Collect Standing Order Information Remaining Occurrences:0/1 In terval:ONE TIME Last released:08/10/2019 Released orders: Sun Aug 10, 2019 11:51 PM by: MAYANK QUEZADA V [id number] CBC WITH AUTOMATED DIFF [#[id number]] Priority: STAT Class: ER Collect Standing Order Information Remaining Occurrences:0/1 Inter haile:ONE TIME Last released:08/10/2019 Released orders: Sun Aug 10, 2019 11:51 PM by: MAYANK QUEZADA V [id number] TROPONIN I [#[id number]] Priority: STAT Class: ER Collect Standing Order Information Remaining Occurrences:0/1 Inter haile:ONE TIME Last released:08/10/2019 Released orders: Sun Aug 10, 2019 11:51 PM by: MAYANK QUEZADA V [id number] MAGNESIUM [#[id number]] Priority: STAT Class: ER Collect Standing Order Information Remaining Occurrences:0/1 Inter haile:ONE TIME Last released:08/10/2019 Released orders: Sun Aug 10, 2019 11:51 PM by: MAYANK QUEZADA V [id number] BNP [#[id number]] Priority: STAT Class: ER Collect Standing Order Information Remaining Occurrences:0/1 Inter haile:ONE TIME Last released:08/10/2019 Released orders: Sun Aug 10, 2019 11:51 PM by: MAYANK QUEZADA V [id number] D DIMER [#[id number]] Priority: STAT Class: ER Collect Standing Order Information Remaining Occurrences:0/1 Inter haile:ONE TIME Last released:08/10/2019 Released orders: Sun Aug 10, 2019 11:51 PM by: MAYANK QUEZADA V [id number] PROTHROMBIN TIME + INR [#[id number]] Priority: STAT Class: ER Collect Standing Order Information Remaining Occurrences:0/1 Inter haile:ONE TIME Last released:08/10/2019 Released orders: Sun Aug 10, 2019 11:51 PM by: MAYANK QUEZADA V [id number] PTT [#[id number]] Priority: STAT Class: ER Collect Specimen Source: Blood Standing Order Information Remaining Occurrences:0 /1 Interval:ONE TIME Last released:08/10/2019 Released orders: Sun Aug 10, 2019 11:51 PM by: MAYANK QUEZADA V [id number] LITHIUM [#[id number]] Pr iority: STAT Class: ER Collect Standing Order Information Remaining Occurrences:0/1 I nterval:ONE TIME Last released:08/10/2019 Released orders: Sun Aug 10, 2019 11:51 PM by: MAYANK QUEZADA V [id number] METABOLIC PANEL, COMPREHENSIVE [#[id number]] Bridgette ority: STAT Class: ER Collect Specimen Source: Plasma Specimen Collected: 08/11/2019 12:01 AM Resulting Agency: [facility] Test ID: MPL Released on: 08/10/2019 11:51 PM [id number] CBC WITH AUTOMATED DIFF [#[id number]] Priority: STAT Class: E R Collect Specimen Source: Whole Blood Specimen Collected: 08/11/2019 12:01 AM Resulting Agency: [facility] Test ID: CBCXA Released on: 08/10/2019 11:51 PM [id number] TROPON IN I [#[id number]] Priority: STAT Class: ER Collect Specimen Source: Gerson sma Specimen Collected: 08/11/2019 12:01 AM Resulting [facility] RY Test ID: TROIP Released on: 08/10/2019 11:51 PM [id number] MAGNESIUM [#[id number]] Priority: STAT Class: ER Collect Specimen Source: Plasma Specimen Collec hyun: 08/11/2019 12:01 AM Resulting Agency: [facility] Test ID: MGPL Re leased on: 08/10/2019 11:51 PM [id number] BNP [#[id number]] Priority : STAT Class: ER Collect Specimen Source: Plasma Specimen Collected: 08/11/2019 12:01 AM Resultin g Agency: [facility] Test ID: BNPPB Released on: 08/10/2019 11:51 PM [id number] 74 D DIMER [#[id number]] Priority: STAT Class: ER Collect Speci men Source: Plasma Specimen Collected: 08/11/2019 12:01 AM Resulting Agency: [facility] Test ID: DDIME Released on: 08/10/2019 11:51 PM [id number] PROTHROMBIN TIME + INR [#[id number]] Priority: STAT Class: ER Collect Specimen Source: Plasma Specimen Collec hyun: 08/11/2019 12:01 AM Resulting Agency: [facility] Test ID: APTHR R eleased on: 08/10/2019 11:51 PM [id number] PTT [#[id number]] Priorit y: STAT Class: ER Collect Specimen Source: Plasma Specimen Collected: 08/11/2019 12:01 AM Resultin g Agency: [facility] Test ID: APTT Released on: 08/10/2019 11:51 PM [id number] LITHIUM [#[id number]] Priority: STAT Class: ER Collect Speci men Source: Serum Specimen Collected: 08/11/2019 12:01 AM Resulting Agency: [facility] Test ID: LI Released on: 08/10/2019 11:51 PM [id number] LACTIC ACID [#[id number]] Priority: STAT Class: ER Collect Standing Order Information Remainin g Occurrences:0/1 Interval:ONE TIME Last released:08/11/2019 Released orders : Mon Aug 11, 2019 12:15 AM by: KATI WILSON [id number] LACTIC ACID [#[id number]] Priority: STAT Class: ER Collect Specimen Source: Plasma Specimen Collec hyun: 08/11/2019 12:01 AM Resulting Agency: [facility] Test ID: LAC Rel eased on: 08/11/2019 12:15 AM ASPIRIN 81 MG CHEWABLE TAB [#[id number]] Priority: STAT Class: Normal [id number] XR CHEST PORT [#[id number]] Priority: STAT Cl ass: Hospital Performed Standing Order Information Remaining Occurrences:0/1 Inter haile:ONE TIME Last released:08/10/2019 Released orders: Sun Aug 10, 2019 11:51 PM by: MAYANK QUEZADA V Reason for Exam -> Chest Pain [id number] XR CHEST PORT [#[id number]] Priority: STAT Class: Hospital Performed Resulting Agency: [facility] Test ID: [id number] Reason for Exam -> Chest Pain Released on: 08/10/2019 11:51 PM [id number] INFLUENZA A & B AG (RAPID TEST) [#[id number]] Priority: STAT Class: ER Collect Sta nding Order Information Remaining Occurrences:0/1 Interval:ONE TIME Last released: 08/10/2019 Released orders: Sun Aug 10, 2019 11:51 PM by: MAYANK QUEZADA V [id number] INFL UENZA A & B AG (RAPID TEST) [#[id number]] Priority: STAT Class: ER Collect Specimen Source : Nasal washing Specimen Collected: 08/11/2019 12:18 AM Resulting Agency: [facility] Test ID: INFLUA Released on: 08/10/2019 11:51 PM [id number] CULTURE, BLOOD [#[id number]] Priority: STAT Class: ER Collect Specimen Source: Blood Standing Order Information Remaining Occurrences:0/1 Interval:ONE TIME Last released:0 08/11/2019 Released orders: SunAug 11, 2019 12:15 AM by: KATI WILSON [id number] CULTU RE, BLOOD [#[id number]] Priority: STAT Class: ER Collect Specimen Source : Blood Standing Order Information Remaining Occurrences:0/1 Interval:ONE TI ME Last released:08/11/2019 Released orders: SunAug 11, 2019 12:15 AM by: KATI WILSON [id number] CULTURE, BLOOD [#[id number]] Priority: STAT Class: E R Collect Specimen Source: Blood Specimen Collected: 08/11/2019 12:33 AM Resulting Agency: [facility] Test ID: HBCS Released on: 08/11/2019 12:15 AM [id number] CULTUR E, BLOOD [#[id number]] Priority: STAT Class: ER Collect Specimen Source: Blo od Specimen Collected: 08/11/2019 12:43 AM Resulting Agency: [facility] Test ID: HBCS Released on: 08/11/2019 12:15 AMLuisitoMaxwell donovan MR#: [id number] Acct#: [id number] Rm: [id number]: 5' 10" Wt: 280 lb Code: Prior Iso:Diagnosis:Allergies: No [place] wn Allergies -------- Current as of: 08/11/19 0142 GI=Given -------aspirin (ASPIRIN) tablet 325 mg #[id number] Admin Amount: 1 Tab (1 x 325 mg Tab) Ordered Dose: 325 mg Route: Oral Freq: ONCE Start Date: 12/24/13 No administration times (b ack 96 hours, ahead 96 hours). ------diphenhydrAMINE (BENADRYL) capsule 50 mg #[id number] Admin Amount: 1 Cap (1 x 50 mg Cap) Ordered Dose: 50 mg Ro poarch: Oral Freq: NOW Start Date: 12/24/13 No administration times (back 96 hours, ahead 96 hours). ------diazepam (VALIUM) tablet 5 mg #[id number] Admin Amount: 1 Tab (1 x 5 mg Tab) Ordered Dose: 5 mg Route: Oral Freq: ONCE Start Date: 12/24/13 No administration times (back 96 hours, ahead 96 hours). ------lidocaine (XYLOCAINE) 10 mg/mL (1 %) injection 1-3 0 mL #[id number] Admin Amount: 1-30 mL Ordered Dose: 1-30 mL Route: Int raDERMal Freq: ONCE Start Date: 12/24/13 No administration times (back 96 hours, ahead 96 hours). ------heparin (PF) 2 units/ml in NS infusion 2,000 Units #[id number] Admin Amount: 1,000 mL = 2,000 Units of 2 Units/mL Ordered Dose: 1,000 mL Route: Irrigation Freq: ONCE Start Date: 12/24/13 No administration times (back 96 hours, ahead 96 hours). ------heparinized saline 2 units/mL infusion 1,000 Units #[id number] Admin Amount: 500 mL = 1,000 Units of 2 Units/mL Ordered Dose: 500 m L Route: IntraarTERial Freq: ONCE Start Date: 12/24/13 No admini stration times (back 96 hours, ahead 96 hours). ------0.9% sodium chloride infusion #[id number] Ordered Dose: 75 mL/hr Route: IntraVENous Freq: CONTINUOUS Start Date: 12/24/13 Rate: 75 mL/hr Duration: No administration ti mes (back 96 hours, ahead 96 hours). ------ioversol (OPTIRAY) 320 mg iodine/mL contrast inje ction 1-100 mL #[id number] Admin Amount: 1-100 mL Ordered Dose: 1-100 mL Ro poarch: IntraVENous Freq: RAD ONCE Start Date: 12/24/13 No administration times (back 96 hours, ahead 96 hours).Maxwell Bray MR#: [id number] * Rm: [id number] Ht: 5' 10" Wt: 280 lb Code: Prior Iso:Diagnosis:Allergies: No Known Allergies -------- Current as of: 08/11/19 0142 GI=Given -------gadobutrol (GADAVIST) contrast solution 1-10 mL #[id number] Admin Amount: 1-10 mL Ordered Dose: 1-10 mL Route: Int raVENous Freq: RAD ONCE Start Date: 01/13/14 No administration times (back 96 hours, ahead 96 hours). ------sodium chloride (NS) flush 5-10 mL #[id number] Admin Amount: 5-10 mL Ordered Dose: 5-10 mL Route: IntraVENo us Freq: RAD ONCE Start Date: 01/13/14 No administration times (back 96 hours, ahe ad 96 hours). ------sodium chloride (NS) 0.9 % flush #[id number] Ordered Dose: Route: Freq: Start Date: 01/13/14 No administration times (back 96 hours, ahead 96 hours). ------morphine injection 2 mg #[id number] Admin Amount: 1 mL = 2 mg of 2 mg/mL Ordered Dose: 2 mg Route: IntraVENous Freq: NOW Start Date: 03/13/15 No administration t imes (back 96 hours, ahead 96 hours). ------influenza vaccine (4 yr+)(PF) (FLUCELVAX Q UAD) injection 0.5*#[id number] Admin Amount: 0.5 mL Ordered Dose: 0.5 mL Route: Int raMUSCular Freq: PRIOR TO DISCHARGE Start Date: 03/30/16 No administration times (back 9 6 hours, ahead 96 hours). ------oxyCODONE-acetam inophen (PERCOCET) 5-325 mg per tablet 1 Tab #[id number] Admin Amount: 1 Tab Ordered Dose: 1 Tab Route: Oral Freq: NOW Start Date: 09/07/17 No administration times (back 96 hours, e ad 96 hours). ------barium sulfate (READICAT) 2.1 % (w/v), 2.0 % (w/w) oral suspension 9*#[id number] Admin Amount: 900 mL Ordered Dose: 900 mL Route: Oral Delgado q: RAD ONCE Start Date: 10/15/17 No administration times (back 96 hours, e ad 96 hours). ------iopamidol (ISOVUE 300) 61 % contrast injection 100 mL #[id number] Admin Amount: 100 mL Ordered Dose: 100 mL Route: Int raVENous Freq: RAD ONCE Start Date: 10/15/17 No administration times (back 96 hours, ahead 96 hours).Maxwell Bray MR#: [id number] * Rm: [id number]: 5' 1 0" Wt: 280 lb Code: Prior Iso:Diagnosis:Allergies: No Known Allergies -------- Current as of: 08/11/19 0142 GI=Given -------risperiDONE (RisperDAL m-tabs) disintegrating tablet 1 mg #[id number] Admin Amount: 1 Tab (1 x 1 mg Tab) Ordered Dose: 1 mg Route: Oral Freq: ONCE Start Date: 12/24/17 No administration times (back 96 hours, ahead 96 hours). ------ALPRAZolam (XANAX) tablet 2 mg #[id number] Admin Amount: 4 Tab (4 x 0.5 mg Tab) Ordered Dose: 2 mg Route: Oral Freq: NOW Start Date: 12/24/17 No administration times (back 96 hours, ahead 96 hours). ------lamoTRIgine (LaMICtal) tablet 100 mg #[id number] Admin Amount: 1 Tab (1 x 100 mg Tab) Ordered Dose: 100 mg Route: Oral Freq: ONCE Start Date: 12/24/17 No administration times (back 96 hours, ahead 96 hours). ------OLANZapine (ZyPREXA zydis) disintegrating tablet 5 mg #[id number] Admin Amount: 1 Tab (1 x 5 mg Tab) Ordered Dose: 5 mg Route: Oral Freq: ONCE Start Date: 12/25/17 No administration times (back 96 hours, ahead 96 hours). ------LORazepam (ATIVAN) tablet 2 mg #[id number] Admin Amount: 4 Tab (4 x 0.5 mg Tab) Ordered Dose: 2 mg Route: Oral Freq: NOW Start Date: 12/25/17 No administration times (back 96 hours, ahead 96 hours). ------LORazepam (ATIVAN) injection 1 mg #[id number] Admin Amount: 0.5 mL = 1 mg of 2 mg/mL Ordered Dose: 1 mg Route: IntraVENous Freq: NOW Start Date: 12/25/17 No administration ti mes (back 96 hours, ahead 96 hours). ------barium sulfate (EZ PAQUE) 96 % (w/w) contrast suspensio n 176 g #[id number] Admin Amount: 176 g Ordered Dose: 176 g Route: Oral Delgado q: RAD ONCE Start Date: 08/02/18 No administration times (back 96 hours, e ad 96 hours). ------barium sulfate (EZ PAQUE) 96 % (w/w) contrast suspensio n 176 g #[id number] Admin Amount: 176 g Ordered Dose: 176 g Route: Oral Delgado q: RAD ONCE Start Date: 08/02/18 No administration times (back 96 hours, [facility] ad 96 hours).Maxwell Bray MR#: [id number] * Rm: [id number]: 5' 10" Wt: 280 lb Code: Prior Iso:Diagnosis:Allergies: No Known Allergies -------- Current as of: 08/11/19 0142 GI=Given -------aspirin chewable tablet 162 mg #[id number] Admin Amount: 2 Tab (2 x 81 [...] possible for a visit in 1 dayComments:Contact Info:Chino Rodriguez [address] [facility] [phone] With:Detail s:Comments:As needed, If symptoms worsenContact Info: Name Value Range Interpretation Code Description Data Melani rce(s) Supporting Document(s ) ID Date Data Source [id number] 08/11/2019 01:40:37 AM EST [facility] I have reviewed discharge instructions w ith the patient and spouse. The patientand spouse verbalized understanding.\\ Name Value Range Interpretation Code Description Data Melani rce(s) Supporting Document(s ) ID Date Data Source [id number] 08/16/2019 06:35:29 AM EST [facility] Name Value Range Interpretation Description Data Sup porting Code Source(s) Document(s ) Service comment [facility] Bacteria [facility] - Good identified in [facility] Unspecified Hospital specimen by Culture ID Date Data Source [id number] 08/16/2019 06:35:28 AM EST [facility] Name Value Range Interpretation Description Data Sup porting Code Source(s) Document(s ) Service comment [facility] Bacteria [facility] ID Date Data Source [id number] 08/11/2019 12:56:01 AM EST [facility] Name Value Range Interpretation Description Data Sup porting Code Source(s) Document(s ) Influenza virus NEG [facility] - [facility] A Ag [Presence] Buddhist in [facility] by Immunoassay Influ[facility] virus [facility]G [facility] B Ag [Presence] Buddhist in [facility] by Immunoassay IMMUNOCHROMATOGRAPHIC MEMBRANE ASSAYResu lt: Negative for Influenza A and BNote: A negative result does not exclude an infl uenza virus infection, including H1N1. If more conclusive testing is desired, foll ow-up confirmatory testing is warranted. Specimen source [Identifier] of Unspecified [facility] specimen ID Date Data Source [id number] 08/11/2019 01:35:58 AM EST [facility] Value Range Interpretation Description Data Sup porting Code Source(s) Document(s ) Prothrombin 9.6 sec 9.4-11.1 [facility] - [facility] time (PT) [facility] INR in 0.9 0.8-1.2 [facility] - Good Platelet poor Buddhist plasma by Hospital Coagulation assay ID Date Data Source [id number] 08/11/2019 01:35:58 AM EST [facility] Name Value Range Interpretation Description Data Sup porting Code Source(s) Document(s ) aPTT in 23.1 SEC 21.0-28. [facility] - Good Platelet poor 0 Buddhist plasma by Hospital Coagulation assay Therapeutic Range = 42.0-60.0 secs ID Date Data Source [id number] 08/11/2019 01:30:36 AM EST [facility] Name Value Range Interpretation Description Data Sup porting Code Source(s) Document(s ) Natriuretic 19 pg/mL 0-100 [facility] - Good peptide B Buddhist [Mass/volume] [facility] in Serum or Plasma ID Date Data Source [id number] 08/11/2019 01:25:10 AM EST [facility] Name Value Range Interpretation Code Description Data Supporting Source(s) Document(s ) [place] 0.6-1.2 Below low normal [facility] - Good [Moles/volum Buddhist e] in Serum Hospital or Plasma ID Date Data Source [id number] 08/11/2019 01:20:56 AM EST [facility] Name Value Range Interpretation Code Description Data Melani rce(s) Supporting Document(s ) [facility] Buddhist [Mass/volume] [facility] in Platelet poor plasma (NOTE)Combination of a D-Dimer result wi thin the reference range and a lowclinical pretest probability has good negative pr edictive value fordeep venous thrombosis.If results are utilized for VTE evaluation, <500 ng/ml is consideredto be negative. ID Date Data Source [id number] 08/11/2019 01:09:42 AM EST [facility] Name Value Range Interpretation Description Data Sup porting Code Source(s) Document(s ) Lactate 1.7 0.4-2.0 [facility] - Good [Moles/volu MMOL/L Buddhist me] in Hospital Serum or Plasma ID Date Data Source [id number] 08/11/2019 01:09:42 AM EST [facility] Value Range Interpretation Description Data Sup porting Code Source(s) Document(s ) Troponin 0.00-0.05 [facility] - Good I.cardiac Buddhist [Mass/volume Hospital ] in Serum or Plasma [...] to 1.50 ng/mL ID Date Data Source [id number] 08/11/2019 01:09:42 AM EST [facility] - Good [facility] Name Value Range Interpretation Description Data Sup porting Code Source(s) Document(s ) Sodium 140 136-145 [facility] - Good [Moles/volume] mmol/L Buddhist in Serum or Hospital Plasma Potassium 3.9 3.5-5.1 [facility] - Good [Moles/volume] mmol/L Buddhist in Serum or Hospital Plasma Chloride 113 98-107 Above high normal [facility] - Good [Moles/volume] mmol/L Buddhist in Serum or Hospital Plasma Carbon 21 21-32 [facility] - Good dioxide, total mmol/L Buddhist [Moles/volume] Hospital in Serum or Plasma Anion gap in 10 10-20 [facility] - Good Serum or mmol/L Buddhist Plasma Hospital Glucose 90 mg/dL 74-106 [facility] - Good [Mass/volume] Buddhist in Serum or Hospital Plasma Urea nitrogen 18 mg/dL 7-18 [facility] - Good [Mass/volume] Buddhist in Serum or Hospital Plasma Creatinine 0.78 0.70-1.3 [facility] - Good [Mass/volume] mg/dL 0 Buddhist in Serum or Hospital Plasma Glomerular >60 [facility] - Good filtration Buddhist rate/1.73 sq M Hospital predicted among blacks [Volume Rate/Area] in Serum or Plasma by Creatinine-bas ed formula (MDRD) Glomerular >60 [facility] - Good filtration Buddhist rate/1.73 sq M Hospital predicted among non-blacks [Volume Rate/Area] in Serum or Plasma by Creatinine-bas ed formula (MDRD) (NOTE)Estimated GFR is calculated using the Modification of Diet in RenalDisease (MDRD) Study equation, reported for both Americans(GFRAA) and non- Americans (GFRNA), and normalized to 1.7 [id number] surface area. The physician must decide which [...] normal [facility] - Good Serum or Plasma [facility] ital Bilirubin.total 0.5 mg/dL 0.2-1.0 [facility] - Good [Mass/volume] in Serum or [facility] Plasma Alanine aminotransferase 29 U/L 13-61 [facility] - Good [Enzymatic activity/volume] [facility] in Serum or Plasma Aspartate aminotransferase 18 U/L 15-37 [facility] HS - Good [Enzymatic activity/volume] [facility] in Serum or Plasma by With P-5'-P Alkaline phosphatase 98 U/L 45-117 [facility] - G ood [Enzymatic activity/volume] [facility] in Serum or Plasma Protein [Mass/volume] in 6.7 g/dL 6.4-8.2 [facility] - Good Serum or Plasma [facility] ital Albumin [Mass/volume] in 3.4 g/dL 3.5-4.7 Below low normal [facility] - Good Serum or Plasma by [facility] ospital Bromocresol purple (BCP) dye binding method Globulin [Mass/volume] in 3.3 g/dL 1.7-4.7 [facility] - Good Serum by calculation [facility] Albumin/Globulin [Mass 1.1 0.7-2.8 [facility] - Good Ratio] in Serum or Plasma [facility] ID Date Data Source [id number] 08/11/2019 01:09:42 AM EST [facility] - Good [facility] Name Value Range Interpretation Description Data Sup porting Code Source(s) Document(s ) Magnesium 2.1 mg/dL 1.6-2.6 [facility] - Good [Mass/volume] Buddhist in Serum or Hospital Plasma ID Date Data Source [id number] 08/11/2019 01:01:18 AM EST [facility] - [facility] Name Value Range Interpretation Description Data Sup porting Code Source(s) Document(s ) Leukocytes 7.7 K/uL 4.8-10.6 [facility] - [#/volume] in Good Blood by Buddhist Automated count Hospital Erythrocytes 4.93 4.70-6.0 [facility] - [#/volume] in M/uL 0 Good Blood by Buddhist Automated count Hospital Hemoglobin 14.9 14.0-18. [facility] - [Mass/volume] in g/dL 0 Good Blood [facility] Hematocrit 44.4 % 42.0-52. [facility] - [Volume 0 Good Fraction] of Buddhist Blood by Hospital Automated count Erythrocyte mean 90.1 FL 81.0-94. [facility] - corpuscular 0 Good volume [Entitic Buddhist volume] by Hospital Automated count Erythrocyte mean 30.2 PG 27.0-35. [facility] - corpuscular 0 Good hemoglobin Buddhist [Entitic mass] [facility] by Automated count Erythrocyte mean 33.6 30.7-37. [facility] - corpuscular g/dL 3 Good hemoglobin [facility] [Mass/volume] by Automated count Erythrocyte 12.5 % 11.5-14. [facility] - distribution 0 Good width [Ratio] by Buddhist Automated count [facility] Platelets 189 K/uL 130-400 [facility] - [#/volume] in Good Blood by Buddhist Automated count [facility] Platelet mean 9.0 FL 9.2-11.8 Below low normal [facility] - volume [Entitic Good volume] in Blood Buddhist by Automated Hospital count Nucleated 0.0 PER 0 [facility] - erythrocytes/100 100 WBC Good leukocytes Buddhist [Ratio] in Blood Hospital Nucleated 0.00 0.0-0.01 [facility] - erythrocytes K/uL Good [#/volume] in [facility] Segmented 59 % 48.0-72. [facility] - neutrophils/100 0 Good leukocytes in [facility] Lymphocytes/100 29 % 18.0-40. [facility] - leukocytes in 0 [facility] Blood [facility] Monocytes/100 7 % 2.0-12.0 [facility] - leukocytes in [facility] Blood [facility] Eosinophils/100 5 % 0.0-7.0 [facility] - leukocytes in [facility] Blood [facility] Basophils/100 1 % 0.0-3.0 [facility] - leukocytes in [facility] Blood [facility] Immature 0 % 0-0.5 [facility] - granulocytes/100 Good leukocytes in Buddhist Blood by Hospital Automated count Segmented 4.6 K/UL 2.3-7.6 [facility] - neutrophils Good [#/volume] in [facility] Lymphocytes 2.2 K/UL 0.9-4.2 [facility] - [#/volume] in [facility] Monocytes 0.5 K/UL 0.1-1.7 [facility] - [#/volume] in [facility] Eosinophils 0.4 K/UL 0.0-1.0 [facility] - [#/volume] in [facility] Basophils 0.1 K/UL 0.0-0.4 [facility] - [#/volume] in [facility] Immature 0.0 K/UL 0.0-0.17 [facility] - granulocytes Good [#/volume] in [facility] Hospital Automated count Differential [facility] - cell count Good method - [facility] Procedure Social History Code Duration Value Status Description Data Source(s ) Alcohol intake 01/08/2020 Current completed Current [facility] 12:00:00 AM EDT non-drinker non-drinker of [employer] alcohol (finding) [employer] (finding) Tobacco use and 01/08/2020 Never used completed Never used [facility] exposure 12:00:00 AM EDT [employer] Smoking 01/08/2020 Never smoker completed Never smoker [facility] 12:00:00 AM EDT [employer] [facility] [employer] Alcohol intake 12/25/2019 Current completed Current [facility] 12:00:00 AM EDT non-drinker non-drinker of [employer] alcohol (finding) [employer] (finding) Tobacco use and 12/25/2019 Never used completed Never used [facility] exposure 12:00:00 AM EDT [employer] Smoking 12/25/2019 Never smoker completed Never smoker [facility] 12:00:00 AM EDT [employer] Alcohol intake 12/12/2019 Current completed Current [facility] 12:00:00 AM EDT non-drinker non-drinker of [employer] alcohol (finding) [employer] (finding) Smoking 12/12/2019 Never smoker completed Never smoker [facility] 12:00:00 AM EDT [employer] Alcohol intake 12/05/2019 Current completed Current [facility] 12:00:00 AM EDT non-drinker non-drinker of [employer] alcohol alcohol (finding) [employer] (finding) Tobacco use and 12/05/2019 Never used completed Never used [facility] exposure 12:00:00 AM EDT [employer] [facility] [employer] Smoking 12/05/2019 Never smoker completed Never smoker [facility] 12:00:00 AM EDT [employer] Alcohol intake 12/01/2019 Current completed Current [facility] 12:00:00 AM EDT non-drinker non-drinker of [employer] alcohol alcohol (finding) [employer] (finding) Smoking 12/01/2019 Never smoker completed Never smoker [facility] 12:00:00 AM EDT [employer] [facility] [employer] Alcohol intake 11/14/2019 Current completed Current [facility] 12:00:00 AM EDT non-drinker non-drinker of [employer] alcohol alcohol (finding) [employer] (finding) Smoking 11/14/2019 Never smoker completed Never smoker [facility] 12:00:00 AM EDT [facility] [facility] [employer] Alcohol intake 11/10/2019 Current completed Current [facility] 12:00:00 AM EDT non-drinker non-drinker of [employer] of alcohol alcohol (finding) [employer] (finding) Smoking 11/10/2019 Never smoker completed Never smoker [facility] 12:00:00 AM EDT [facility] [employer] Alcohol intake 09/06/2019 Current completed Current [facility] 12:00:00 AM EDT non-drinker non-drinker of [employer] of alcohol alcohol (finding) [employer] (finding) Smoking 09/06/2019 Never smoker completed Never smoker [facility] 12:00:00 AM EDT [employer] Alcohol intake 08/16/2019 Current completed Current [facility] 12:00:00 AM EST non-drinker non-drinker of [employer] of alcohol alcohol (finding) [employer] (finding) Smoking 08/16/2019 Never smoker completed Never smoker [facility] 12:00:00 AM EST [facility] Alcohol intake 08/10/2019 Current completed Current [facility] 12:00:00 AM EST non-drinker non-drinker of [employer] alcohol (finding) [employer] (finding) Smoking 08/10/2019 Never smoker completed Never smoker [facility] 12:00:00 AM EST [employer] Alcohol intake 07/21/2019 Current completed Current [facility] 12:00:00 AM EST non-drinker non-drinker of [employer] alcohol (finding) [employer] (finding) Smoking 07/21/2019 Never smoker completed Never smoker [facility] 12:00:00 AM EST [employer] Smoking 07/29/2018 Never smoker completed Never smoker [facility] 12:00:00 AM EST [employer] Smoking 07/19/2018 Never smoker completed Never smoker [facility] 12:00:00 AM EST [employer] Smoking 07/11/2018 Never smoker completed Never smoker [facility] 12:00:00 AM EST [employer] Vital Signs ID Date Data Source UNK Name Value Range Interpretation Code Description Data Source(s) Oxygen saturation 98 % 98 % [facility] ours in Arterial blood [employer] by Pulse [employer] Body mass index 48.95 kg/m2 48.95 kg/m2 [facility] ours (BMI) [Ratio] [employer] [facility] [employer] Body weight 136.533 kg 136.533 kg [facility] [employer] Body height 167 cm 167 cm [facility] [employer] Respiratory rate 12 /min 12 /min [facility] [employer] [facility] [employer] Body temperature 36.56 May 36.56 May [facility] [facility] [employer] Heart rate 102 /min 102 /min Bon [facility] Diastolic blood 60 mm[Hg] 60 mm[Hg] [facility] pressure [employer] Systolic blood 100 mm[Hg] 100 mm[Hg] [facility] pressure [employer] Diastolic blood 80 mm[Hg] 80 mm[Hg] [facility] pressure [employer] Systolic blood 122 mm[Hg] 122 mm[Hg] [facility] pressure [employer] Respiratory rate 20 /min 20 /min [facility] Heart rate 70 /min 70 /min [facility] Diastolic blood 70 mm[Hg] 70 mm[Hg] [facility] pressure [employer] [facility] [employer] Systolic blood 124 mm[Hg] 124 mm[Hg] [facility] pressure [employer] [facility] [employer] Respiratory rate 18 /min 18 /min [facility] [employer] Body temperature 36.56 May 36.56 May [facility] [employer] Heart rate 88 /min 88 /min [facility] Diastolic blood 86 mm[Hg] 86 mm[Hg] [facility] pressure [employer] [facility] [employer] Systolic blood 110 mm[Hg] 110 mm[Hg] [facility] pressure [employer] Oxygen saturation 98 % 98 % [facility] in Arterial blood [employer] by Pulse oximetry [employer] Body mass index 47.98 kg/m2 47.98 kg/m2 Bon [facility] ours (BMI) [Ratio] [facility] Body weight 133.811 kg 133.811 kg [facility] Body height 167 cm 167 cm Bon [email or web address] [facility] Respiratory rate 12 /min 12 /min [facility] [employer] [facility] [employer] Body temperature 36.67 May 36.67 May [facility] [employer] Heart rate 100 /min 100 /min [facility] Diastolic blood 66 mm[Hg] 66 mm[Hg] [facility] pressure [employer] [facility] [employer] Systolic blood 102 mm[Hg] 102 mm[Hg] [facility] pressure [employer] [facility] [employer] Respiratory rate 20 /min 20 /min [facility] [employer] Heart rate 70 /min 70 /min [facility] Diastolic blood 68 mm[Hg] 68 mm[Hg] [facility] pressure [facility] [facility] Systolic blood 120 mm[Hg] 120 mm[Hg] [facility] pressure [employer] [facility] [employer] Respiratory rate 18 /min 18 /min [facility] [facility] [employer] Heart rate 68 /min 68 /min [facility] Diastolic blood 68 mm[Hg] 68 mm[Hg] [facility] pressure [employer] [facility] [employer] Systolic blood 112 mm[Hg] 112 mm[Hg] [facility] pressure [facility] Respiratory rate 20 /min 20 /min [facility] Body temperature 36.56 May 36.56 May [facility] [employer] [facility] [employer] Heart rate 92 /min 92 /min [facility] Diastolic blood 70 mm[Hg] 70 mm[Hg] [facility] pressure [facility] [facility] [employer] Systolic blood 110 mm[Hg] 110 mm[Hg] [facility] pressure [employer] [facility] [employer] Respiratory rate 20 /min 20 /min [facility] Heart rate 68 /min 68 /min [facility] Diastolic blood 72 mm[Hg] 72 mm[Hg] [facility] pressure [facility] [facility] Systolic blood 112 mm[Hg] 112 mm[Hg] [facility] pressure [employer] [facility] [employer] Respiratory rate 20 /min 20 /min [facility] Heart rate 82 /min 82 /min [facility] Diastolic blood 66 mm[Hg] 66 mm[Hg] [facility] pressure [facility] [facility] [employer] Systolic blood 110 mm[Hg] 110 mm[Hg] [facility] pressure [employer] [facility] [employer] Respiratory rate 14 /min 14 /min [facility] [facility] Body temperature 36.89 May 36.89 May [facility] [facility] Heart rate 72 /min 72 /min [facility]IL[facility] Diastolic blood 74 mm[Hg] 74 mm[Hg] [facility] pressure [facility] [facility] Systolic blood 128 mm[Hg] 128 mm[Hg] [facility] pressure [employer] [facility] Respiratory rate 20 /min 20 /min [facility] Heart rate 68 /min 68 /min [facility] Diastolic blood 64 mm[Hg] 64 mm[Hg] [facility] pressure [facility] Systolic blood 108 mm[Hg] 108 mm[Hg] [facility] pressure [employer] [facility] Respiratory rate 18 /min 18 /min [facility] Heart rate 80 /min 80 /min [facility]IL[facility] Diastolic blood 70 mm[Hg] 70 mm[Hg] [facility] pressure [facility] Systolic blood 98 mm[Hg] 98 mm[Hg] [facility] pressure [facility] [facility] Respiratory rate 20 /min 20 /min [facility] Body temperature 36.56 May 36.56 May [facility] Heart rate 78 /min 78 /min [employer] [facility] Diastolic blood 60 mm[Hg] 60 mm[Hg] [facility] pressure [facility] [facility] [employer] Systolic blood 110 mm[Hg] 110 mm[Hg] [facility] pressure [employer] [facility] [employer] Body mass index 48.95 kg/m2 48.95 kg/m2 [facility] (BMI) [Ratio] [employer] Body weight 136.533 kg 136.533 kg [employer] Respiratory rate 18 /min 18 /min [facility] [facility] [employer] Body temperature 36.56 May 36.56 May [facility] [employer] [facility] [employer] Heart rate 80 /min 80 /min [facility] [facility] Diastolic blood 70 mm[Hg] 70 mm[Hg] [facility] pressure [facility] [facility] [employer] Systolic blood 128 mm[Hg] 128 mm[Hg] [facility] pressure [employer] [facility] [employer] Oxygen saturation 98 % 98 % [facility] in Arterial blood [employer] by Pulse o[employer] [facility] [employer] Body mass index 48.95 kg/m2 48.95 kg/m2 [facility] (BMI) [Ratio] [employer] [facility] [facility] Body weight 136.533 kg 136.533 kg [employer] Body height 167 cm 167 cm [employer] Respiratory rate 14 /min 14 /min [facility] [employer] Body temperature 36.44 May 36.44 May [facility] [facility] [employer] Heart rate 98 /min 98 /min [employer] Diastolic blood 60 mm[Hg] 60 mm[Hg] [facility] [employer] [facility] [employer] Systolic blood 110 mm[Hg] 110 mm[Hg] [facility] [employer] Oxygen saturation 96 % 96 % [facility] in Arterial blood [facility] [employer] [employer] Respiratory rate 18 /min 18 /min [facility] [employer] [facility] [employer] Body temperature 36.72 May 36.72 May [facility] [employer] [facility] [employer] Heart rate 80 /min 80 /min [facility] Diastolic blood 88 mm[Hg] 88 mm[Hg] [facility] [employer] Systolic blood 128 mm[Hg] 128 mm[Hg] [facility] pressure [employer] Body mass index 48.97 kg/m2 48.97 kg/m2 [facility] (BMI) [Ratio] [employer] Body weight 136.578 kg 136.578 kg [employer] Body height 167 cm 167 cm [employer] Oxygen saturation 98 % 98 % [facility] in Arterial blood [employer] [employer] Body mass index 48.30 kg/m2 48.30 kg/m2 [facility] (BMI) [Ratio] [employer] Body weight 134.718 kg 134.718 kg [employer] Body height 167 cm 167 cm [facility] [facility] [employer] Respiratory rate 14 /min 14 /min [facility] [employer] Body temperature 37.33 May 37.33 May [facility] Heart rate 100 /min 100 /min [employer] Diastolic blood 68 mm[Hg] 68 mm[Hg] [facility] [employer] Systolic blood 118 mm[Hg] 118 mm[Hg] [facility] [employer] Oxygen saturation 98 % 98 % [facility] in Arterial blood [employer] [employer] [facility] [employer] Body mass index 47.49 kg/m2 47.49 kg/m2 [facility] (BMI) [Ratio] [employer] Body weight 132.45 kg 132.45 kg [facility] [employer] Body height 167 cm 167 cm [facility] [employer] Respiratory rate 12 /min 12 /min [facility] [employer] [facility] [employer] Body temperature 36.44 May 36.44 May [facility] [employer] [facility] [employer] Heart rate 88 /min 88 /min [employer] Diastolic blood 70 mm[Hg] 70 mm[Hg] [facility] [facility] [employer] Systolic blood 102 mm[Hg] 102 mm[Hg] [facility] [employer] Oxygen saturation 92 % 92 % [facility] in Arterial blood [employer] [facility] [employer] [employer] [facility] [employer] Body mass index 45.86 kg/m2 45.86 kg/m2 [facility] (BMI) [Ratio] [employer] Body weight 133.811 kg 133.811 kg [facility] [employer] Body height 170.8 cm 170.8 cm [facility] Respiratory rate 12 /min 12 /min [facility] [employer] Body temperature 36.67 May 36.67 May [facility] [employer] Heart rate 88 /min 88 /min [employer] Diastolic blood 80 mm[Hg] 80 mm[Hg] [facility] [employer] [facility] Systolic blood 120 mm[Hg] 120 mm[Hg] [facility] pressure [employer] [facility] Oxygen saturation 95 % 95 % [facility] in Arterial blood [facility] [employer] [facility] [employer] Respiratory rate 18 /min 18 /min [facility] [employer] [facility] Body temperature 36.44 May 36.44 May [facility] [employer] Heart rate 100 /min 100 /min [employer] Diastolic blood 80 mm[Hg] 80 mm[Hg] [facility] [employer] [facility] Systolic blood 123 mm[Hg] 123 mm[Hg] [facility] pressure [employer] Body mass index 46.99 kg/m2 46.99 kg/m2 [facility] (BMI) [Ratio] [employer] Body weight 136.079 kg 136.079 kg [facility] Body height 170.2 cm 170.2 cm [facility] Oxygen saturation 96 % 96 % [facility] in Arterial blood [facility] [employer] Body mass index 45.55 kg/m2 45.55 kg/m2 [facility] (BMI) [Ratio] [employer] Body weight 132.904 kg 132.904 kg [facility] [employer] Body height 170.8 cm 170.8 cm [facility] [employer] Respiratory rate 14 /min 14 /min [facility] [employer] Body temperature 35.89 May 35.89 May [facility] Heart rate 96 /min 96 /min [employer] Diastolic blood 78 mm[Hg] 78 mm[Hg] [facility] [employer] Systolic blood 116 mm[Hg] 116 mm[Hg] [facility] pressure [employer] Oxygen saturation 92 % 92 % [facility] in Arterial blood [facility] [employer] by [employer] [employer] [facility] [employer] Respiratory rate 15 /min 15 /min [facility] [employer] Heart rate 96 /min 96 /min [facility] Diastolic blood 86 mm[Hg] 86 mm[Hg] [facility] [employer] Systolic blood 121 mm[Hg] 121 mm[Hg] [facility] pressure [employer] Body mass index 40.18 kg/m2 40.18 kg/m2 [facility] (BMI) [Ratio] [employer] Body weight 127.007 kg 127.007 kg [facility] Body height 177.8 cm 177.8 cm [facility] Body temperature 36.72 May 36.72 May [facility] [employer] Body temperature 36.33 May 36.33 May [facility] [employer] Oxygen saturation 96 % 96 % [facility] in Arterial blood [employer] [facility] [employer] [employer] [facility] [employer] Respiratory rate 21 /min 21 /min [facility] [employer] Heart rate 85 /min 85 /min [facility] Diastolic blood 88 mm[Hg] 88 mm[Hg] [facility] [employer] [facility] Systolic blood 155 mm[Hg] 155 mm[Hg] [facility] pressure [employer] Body mass index 40.18 kg/m2 40.18 kg/m2 [facility] (BMI) [Ratio] [employer] [facility] Body weight 127.007 kg 127.007 kg [facility] Body height 177.8 cm 177.8 cm [facility] [employer] Oxygen saturation 98 % 98 % [facility] in Arterial blood [employer] [facility] [employer] [employer] [facility] [employer] Body mass index 44.66 kg/m2 44.66 kg/m2 [facility] (BMI) [Ratio] [employer] [facility] Body weight 128.368 kg 128.368 kg [facility] [employer] Body height 169.5 cm 169.5 cm [facility] Respiratory rate 12 /min 12 /min [facility] [employer] Body temperature 36.28 May 36.28 May [facility] [employer] [facility] [employer] Heart rate 68 /min 68 /min [facility] [employer] Diastolic blood 80 mm[Hg] 80 mm[Hg] [facility] [employer] Systolic blood 122 mm[Hg] 122 mm[Hg] [facility] pressure [employer] Oxygen saturation 96 % 96 % [facility] in Arterial blood [facility] by [facility]ulse [facility] [employer] Diastolic blood 53 mm[Hg] 53 mm[Hg] [facility] [employer] Systolic blood 107 mm[Hg] 107 mm[Hg] [facility] pressure [employer] Respiratory rate 17 /min 17 /min [facility] [employer] Body temperature 37.11 May 37.11 May [facility] [employer] Heart rate 58 /min 58 /min [facility] [employer] Body mass index 38.06 kg/m2 38.06 kg/m2 [facility] (BMI) [Ratio] [employer] Body weight 110.224 kg 110.224 kg [facility] [employer] Body height 170.2 cm 170.2 cm [facility] [employer] Oxygen saturation 98 % 98 % [facility] in Arterial blood [facility] by [facility] [employer] [facility] [employer] Body mass index 37.71 kg/m2 37.71 kg/m2 [facility] (BMI) [Ratio] [employer] Body weight 108.41 kg 108.41 kg [facility] [employer] Body height 169.5 cm 169.5 cm [facility] [employer] Respiratory rate 16 /min 16 /min [facility] [employer] [facility] [employer] Body temperature 36.44 May 36.44 May [facility] [employer] [facility] [employer] Heart rate 74 /min 74 /min [facility] [employer] Diastolic blood 70 mm[Hg] 70 mm[Hg] [facility] [employer] Systolic blood 94 mm[Hg] 94 mm[Hg] [facility] pressure [employer] Oxygen saturation 98 % 98 % [facility] in Arterial blood [facility] [employer] by Pulse [employer] [facility] [employer] Respiratory rate 17 /min 17 /min [facility] [employer] Body temperature 36.33 May 36.33 May [facility] [employer] [facility] Heart rate 87 /min 87 /min [facility] [employer] Diastolic blood 75 mm[Hg] 75 mm[Hg] [facility] pressure [facility] [employer] [facility] Systolic blood 121 mm[Hg] 121 mm[Hg] [facility] pressure [employer] [facility] Body mass index 39.94 kg/m2 39.94 kg/m2 [facility] (BMI) [Ratio] [facility] Body weight 108.863 kg 108.863 kg [facility] [employer] [facility] Body height 165.1 cm 165.1 cm [facility] [employer] [facility] Patient Treatment Plan of Care Planned Activity Planned Date Details Description Data Source (s) Propranolol Hydrochloride 01/08/2020 [facility] 10 MG Oral Tablet 12:00:00 AM [employer] [facility] [employer] Clonazepam 0.5 MG Oral 12/25/2019 [...] Se cours [facility] Tablet 12:00:00 AM EDT [employer] [place] Carbonate 300 MG 11/30/2019 [facility] Oral Capsule 12:00:00 AM EDT [employer] Amitriptyline Hydrochloride 11/12/2019 [facility] 100 MG Oral Tablet 12:00:00 AM [employer] [place] [facility] [employer] Docusate Sodium 100 MG Oral 11/04/2019 [facility] Capsule 12:00:00 AM EDT [facility] Bisacodyl 5 MG Delayed 11/03/2019 [facility] Release Oral Tablet 12:00:00 AM EDT [employer] [facility] [employer] Bisacodyl 5 MG Delayed 10/31/2019 [facility] Release Oral Tablet 01:50:17 PM EDT [employer] [facility] [employer] Acetaminophen 325 MG Oral 10/29/2019 [facility]avier [facility] Tablet 02:44:40 PM EDT [facility] [employer] sodium chloride (NS) flush 10/29/2019 [facility] 5-40 mL 11:01:53 AM EDT Health [email or web address] 24 HR Bupropion 10/17/2019 [facility] Hydrochloride 150 MG 12:00:00 AM EDT [employer] [facility] Extended Release Oral Tablet 24 HR Bupropion 10/17/2019 [facility] Hydrochloride 300 MG 12:00:00 AM EDT [employer] [facility] Extended Release Oral Tablet Vraylar 3 mg capsule 09/03/2019 [facility] 12:00:00 AM EDT [facility] [employer] Amitriptyline Hydrochloride 08/20/2019 [facility] 150 MG Oral Tablet 12:00:00 AM EST [facility] [place] Carbonate 150 MG 08/16/2019 [facility] [...] [facility] Oxycodone Hydrochloride 5 12:00:00 AM EST [employer] MG Oral Tablet VRAYLAR 6 mg capsule 07/07/2019 [facility] 12:00:00 AM EST [employer] valacyclovir 1000 MG Oral 07/17/2018 [facility]avier [facility] Tablet 12:00:00 AM EST [employer] Risperidone 1 MG Oral 12/07/2017 [facility] Tablet 12:00:00 AM EDT [facility] Alprazolam 1 MG Oral Tablet 12/07/2017 [facility] 12:00:00 AM EDT [facility] lamotrigine 25 MG Oral 12/07/2017 [facility] [employer] Tablet 12:00:00 AM EDT Health [facility] [employer] Clonazepam 2 MG Oral Tablet Bon [facility] cariprazine (Vraylar) 6 mg B on [facility] I n[facility] 24 HR Bupropion Bon [facility] Hydrochloride 300 MG [facility] Extended Release Oral Tablet fluoxetine HCl (PROZAC PO) B on [facility] ziprasidone 80 MG Oral Bon [facility] [employer] [facility] I nc valacyclovir 500 MG Oral Bon [facility] [employer] Tablet [Valtrex] Health Syst em Inc
[2020-03-18] MEDS ORDERED: KETAMINE HCL 500 MG/10 ML VIAL ONE (08:32)
[2020-03-18] MEDS ORDERED: PROPOFOL 20 ML ONE (08:32)
[2020-03-18] MEDS ORDERED: SUCCINYLCHOLINE CHLORIDE 200 MG/10 ML SYRINGE ONE (08:32)
[2020-03-18 09:26] VITALS: TEMP 97.7
[2020-03-18 10:00] VITALS: BP 102/71; PULSE 82
== END 2020-03-18 10:13 | disposition home or self-care (01) ==
LOC: FECT 07:01
PROVIDERS: ATTEND Psychiatry & Neurology Psychiatry
PROC: GZB4ZZZ Other Electroconvulsive Therapy (ICD-10-PCS; principal; 2020-03-18 07:00)
DX: F32.9 Major depressive disorder, single episode, unspecified (principal)
CPT/HCPCS: 82962; 90870; 94760

== ENCOUNTER 2020-03-19 07:06 | Day surgery (SDC) | payer OTHER ==
[2020-03-16 11:14] VITALS: BMI 48.0
[~2020-03-19 07:06] MED LIST changes: +ACETAMINOPHEN 325 MG TABLET (FP) PO PRN; +PROMETHAZINE HCL 25 MG/1 ML VIAL IVPUSH PRN
--- OUTSIDE RECORDS SUMMARY | 2020-03-19 07:14 | XMS ---
:1970 Author Organization [facility] Care Team Providers Name Role Phone RITIKA [...] is protected by Article 27-F of the [place] Public Health law. If you continue you may haveaccess to information: Regarding HIV / AIDS; Provided by facilities licensed or operated by the [facility] Office of Mental Health; or Provided by the [facility] Office for People With Developmental Disabilities. If such information is present, then the following [facility] mandated warning applies: This information has [...] law may result in a fine or half-way sentence or both. A general authorization for the release of medical or other information is NOT sufficient authorization for further disclosure. Encounters Encounter Providers Location Date Indications Data Source(s ) Outpatient 01/08/2020 03:30:00 [facility]a PM EDT - 01/12/2020 [facility] 10:23:35 AM EDT Patient discharged. Attender: MARIYA CATHERINE 01/01/2020 12:00:00 AM [facility] Attender: MAURICIO 12/30/2019 12:00:00 AM [facility] Attender: MARIYA CATHERINE 12/29/2019 12:00:00 AM [facility] 04:00:00 [facility] 06:48:40 [facility] PM EDT Patient discharged. OL 12[facility]25[facility] 11:59:00 PM EDT Attender: MARIYA 12/25/2019 12:00:00 AM [facility] Attender: SUSI LONGO 12/25/2019 12:00:00 AM [facility] Attender: MAURICIO 12/24/2019 12:00:00 AM [facility] Attender: MARIYA 12/22/2019 12:00:00 AM [facility] Attender: SUSI LONGO 12/22/2019 12:00:00 AM [facility] Attender: MAURICIO 12/19/2019 12:00:00 AM [facility] Attender: MARIYA 12/18/2019 12:00:00 AM [facility] Attender: GLADIS FUNEZ 12/18/2019 12:00:00 AM Bon [facility] Attender: SUSI LONGO 12/17/2019 12:00:00 AM [facility] Attender: MAURICIO 12/16/2019 12:00:00 AM [facility]ender: MARIYA 12/15/2019 12:00:00 AM [facility] Attender: XANDER COLBERT 12/13/2019 12:00:00 AM Bon [facility] Outpatient 12/12/2019 12:00:00 PM Francisco Javier n [facility] EDT - 12/12/2019 [facility] 01:20:23 PM EDT Patient discharged. Attender: ROSSI 12/08/2019 05:55:36 [facility] - 01/02/2020 [facility] 12:00:00 AM EDT System In c Inpatient Admitter: RITIKA 12/05/2019 12:00:00 General We [facility] MISSAEL AM EDT - 12/08/2019 [facility] 03:44:00 PM EDT General Weakness Patient discharged. Outpatient 12/05/2019 12:00:00 AM EDT [facility] Outpatient 12/01/2019 03:45:00 PM EDT - [facility] 12/01/2019 05:01:16 PM EDT Inc Patient discharged. Outpatient 11/14/2019 01:00:00 PM EDT - [facility] 11/18/2019 11:56:43 AM EDT System Inc Patient discharged. Outpatient 11/10/2019 09:00:00 AM EDT - [facility] 11/10/2019 04:44:05 PM EDT System Inc Patient discharged. Inpatient Admitter: RITIKA CANAS 10/29/2019 12:00:00 AM let hargic [facility] EDT - 11/03/2019 [facility] 04:02:00 PM EDT lethargic Patient discharged. Outpatient 09/15/2019 08:22:58 AM EDT [facility] - 09/15/2019 11:59:00 PM Hospital EDT Outpatient 09/10/2019 04:00:00 PM EDT [facility] Outpatient 09/04/2019 03:15:00 PM EDT [facility] Outpatient 08/19/2019 07:31:00 AM EST [facility] ([facility]) Outpatient 08/18/2019 06:35:00 AM EST [facility] ([facility]) Outpatient 08/17/2019 07:16:00 AM EST NEXTGEN ([facility]) Emergency 08/16/2019 12:00:00 AM EST Shortness of Breath [facility] - 08/16/2019 10:45:00 PM Hospital EST Shortness of Breath Patient discharged. Outpatient 08/11/2019 12:05:00 AM EST [facility] Emergency 08/10/2019 12:00:00 AM EST - Chest P ain [facility] 08/11/2019 01:42:00 AM EST Hospital Chest Pain Patient discharged. Outpatient 07/21/2019 04:15:00 PM EST - [facility] 07/22/2019 10:51:43 AM EST System Inc Patient discharged. Immunizations Vaccine Date Status Description Data Source(s) New in 2012. 09/04/2019 completed Influenza 09/04/2019 [facility] IIV4 12:00:00 AM EDT Vaccine (Quad) [facility] IIV3. This is one 07/19/2018 completed Influenza 07/19/2018, [facility] of two codes 12:00:00 AM EST Vaccine 04/30/2014 Bela replacing CVX 15, He alth which is being [employer] retired. Influenza, 04/01/2016 completed Influenza 04/01/2016 [facility] injectable, MDCK, 12:00:00 AM EDT Vaccine (Quad) [facility] preservative [facility] quadrivalent Tdap 12/11/2014 completed Tdap 12/11/2014 [facility] 12:00:00 AM EDT [facility] [employer] [facility] IIV3. This is one 04/30/2014 completed Influenza 07/19/2018, [facility] of two codes 12:00:00 AM EST Vaccine 04/30/2014 Bela replacing CVX 15, He alth which is being [employer] retired. RAMAKRISHNA 06/12/2013 completed Influenza 06/12/2013 [facility] 12:00:00 AM EST Vaccine Moira ity (Trivalent) [facility] Medications Medication Brand Start Product Dose Route Administrative Pharmacy [facility] Indications Reaction Description Data Name Date Form Instructions Instructions Source(s) Propranolol propra 10 mg Oral active essential T stephanie 1 Tab Bon Hydrochlori noloL 2019 tremor by mouth S [facility]ours de 10 MG (BETO 12:00: three (3) Ch arity Oral Tablet AL) 10 00 AM times [facility] propranoloL mg EDT Indications: System Inc [...] Tablet tablet 5 mg EDT dose (after [facility] OLANZapine last Health (ZyPREXA) modification) S ystem tablet 5 mg on [email or web address] 12/09/19 at 0900, Until Discontinued Medication [...] on Sun Bela OLANZapine mg 12/07/19 at [facility] (ZyPREXA) 1400, Until Sys tem tablet 2.5 Discontinued I nc mg Medication administered onsite Cesar Chavez lithium 12/07/2019 300 Oral active 300 mg , Oral, Bon Carbonate carbonate SR 02:00:00 PM mg 2 TIMES DAILY, [facility] 300 MG (LITHOBID) EDT First dose o n Bela Extended tablet 300 Sun 0 at [facility] Release Oral mg 1400, Until System Tablet Discontinued Inc lithium carbonate SR (LITHOBID) tablet 300 mg Medication administered onsite Losartan losartan 12/07/2019 50 Oral active 50 m g, Oral, Bon Potassium 50 (COZAAR) 01:00:00 PM mg D AILY, [facility] MG Oral tablet 50 EDT dose on Sun Bela Tablet mg 12/07/19 at [facility] losartan 1300, Until Syst em (COZAAR) Discontinued Inc tablet 50 mg Medication administered onsite furosemide 18036-212-20 12/07/2019 20 IntraVENous complete d 20 mg, [...] 12/13/19 at 0900 Medication administered onsite furosemide 84013-008-57 12/06/2019 20 IntraVENous complete d edema 20 [...] il mg Discontinued Medication administered onsite 0.9% 9583-7089-47 12/05/2019 100 IntraVENous aborted 100 mL/hr, at [...] mg tablet Inc Shared psychotic disorder (HCC) Cesar Chavez lithium 11/30/2019 aborted Bon Carbonate 300 carbonate [...] (DULCOLAX) 5 Inc mg EC tablet cariprazine [id number] 11/01/2019 6 mg Oral active 6 m [...] t dose on Bela hydrocortisone 11/01/19 at [facility] (HYTONE) 2.5 % 1800, Unti l System ointment Discontinued Inc Medication administered onsite Docusate docusate 10/31/2019 200 Oral active 200 mg, Oral, Bon Sodium 100 sodium 02:00:00 PM mg DAILY , [facility] MG Oral (COLACE) EDT dose on Sun C harity Capsule capsule 200 10/31/19 at [facility] docusate mg 1400, Until Syst [...] haloperidoL tablet 5 mg EDT ONCE, 1 [facility] (HALDOL) dose, [facility] tablet 5 mg Denise System 10/30/19 [facility] at 2100 Medication administered onsite amitriptyline 10/30/2019 150 mg Oral active 1 50 mg, Oral, Bon (ELAVIL) tablet 09:00:00 PM EV AN BEDTIME, [facility] 150 mg EDT First dose on [facility] ity Denise 10/30/19 at [facility] 2100, Until System I nc Discontinued Medication administered onsite Haloperidol 2 haloperidoL 10/30/2019 2 mg Oral aborted 2 mg, Oral, Bon MG Oral (HALDOL) 08:01:20 PM EVERY 6 [facility] Tablet tablet 2 mg EDT HOURS Ch arity haloperidoL NEEDED, [facility] h (HALDOL) Starting Denise Sys tem tablet 2 mg 10/30/19 at [facility] 2000, Until 10/31/19 at 2043, Psychosis, Agitation Medication administered onsite Cesar Chavez lithium 10/30/2019 300 Oral active 300 mg , Oral, Bon Carbonate carbonate 12:00:00 PM mg 2 T IMES DAILY, [facility] 300 MG Oral tablet 300 EDT First d ose on Bela Tablet mg Denise 10/30/19 at [facility] lithium 1200, Until Syste m carbonate Discontinued In c tablet 300 mg Medication administered onsite Clonazepam 1 clonazePAM 10/30/2019 1 mg Oral active 1 mg, Oral, 2 Bon MG Oral (KlonoPIN) 12:00:00 PM TIME S DAILY, [facility] Tablet tablet 1 mg EDT First dose on [facility] clonazePAM [facility] 10/30/19 at [facility] (KlonoPIN) 1200, Until Sy stem tablet 1 mg Discontinued [facility] Medication administered onsite 0.9% 5916-7511-40 10/29/2019 100 IntraVENous aborted 100 mL/hr, at Bon sodium 02:55:00 PM mL/h 100 mL/hr, [facility] chloride EDT IntraVENous, Jagruti rity infusion CONTINUOUS, [facility] Starting Wed System 10/29/19 at [facility] 1455, Until 11/01/19 at 1446 Medication administered onsite 0.4 ML enoxaparin 10/29/2019 40 SubCUTAneous active 40 mg, Bon Enoxaparin (LOVENOX) 02:55:00 PM mg Gallardo bCUTAneous, [facility] sodium 100 injection 40 EDT EVERY 24 Bela MG/ML mg HOURS, [facility] Prefilled dose on Sun Sys tem Syringe 10/29/19 at [facility] enoxaparin 1455, Until (LOVENOX) Discontinued injection 40 mg Medication administered onsite Acetaminophen acetaminophen 10/29/2019 650 Oral active 650 mg, Oral, Bon 325 MG Oral (TYLENOL) 02:44:40 PM mg E VERY 4 HOURS [facility] Tablet tablet 650 mg EDT NEEDED , Bela acetaminophen Starting [facility] (TYLENOL) 10/29/19 [facility] mg 1444, Until Inc Discontinued, Mild Pain, Fever Medication administered onsite sodium 14739-529-34 10/29/2019 mL IntraVENous active 5-40 mL, Bon chloride 02:00:00 PM IntraVENo us, [facility] (NS) flush EDT EVERY 8 Charit y 5-40 mL HOURS, First [facility]al dose on Sun System 10/29/19 at Inc 1400, Until Discontinued Medication administered onsite sodium 88551-722-91 10/29/2019 mL IntraVENous active 5-40 mL, Bon [...] XL) 150 mg tablet Vraylar 3 mg 99296-325-65 09/03/2019 6 Oral aborted depre ssion Take [...] EST NOW, 1 Bela chewable tablet dose, [facility] 162 mg 08/16/19 System at 2103 Inc Medication administered onsite famotidine 08/16/2019 20 IntraVENous aborted 20 mg, Bon (PF) (PEPCID) 09:02:00 PM mg Intr aVENous, [facility] 20 mg in 0.9% EST EVERY 12 Ch arity sodium HOURS, [facility] chloride 10 dose on Sat S ystem mL injection 08/16/19 at [facility] 2102, Until Discontinued Medication administered onsite methylPREDNISolone 504180 08/16/2019 125 IntraVENous comple hyun 125 mg, Bon (PF) (Solu-MEDROL) 09:02:00 PM mg IntraVENous, [facility] injection 125 mg EST NOW, 1 d ose, Bela 08/16/19 Health at 2102 System Inc Medication administered onsite 0.9% 6382-1093-84 08/16/2019 1000 IntraVENous completed 1,000 mL, at [...] mg tablet for 3 System days. Inc Cesar Chavez lithium 08/16/2019 2 Oral active Take 2 [...] back pain due to trauma VRAYLAR 6 69025-281-31 07/07/2019 6 mg Oral aborted Bipolar Take [...] System DAILY Inc NEEDED FOR ANXIETY cariprazine 023082 6 mg Oral aborted Take 6 B [...] ID Covered Covered Policy Plan Coverage type republican ID republican's [place] Inform ation relationship to boland [facility] [id number] [facility] [id number] [facility] [id number] [facility] HMO [id number] [facility] Commerical [id number] [facility] [id number] [facility] [id number] HEALTH PLAN [facility] [id number] PLAN [facility] [id number] HEALTH PLAN POLO [id number] 2 POLO [id number] [employer] O [id number] [facility] PPO [id number] [place] [place] 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 [id number] COMPENSATION [facility], 1928–1983O [id number] 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 [id number] COMPENSATION [facility] [id number] GENERIC [id number] COMMERCIAL [facility] [id number] PLAN [facility] GENERIC Commerical [id number] [facility] PPO [id number] PLAN [facility] [id number] PLAN 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 [id number] COMPENSATION [facility], 1928–1983O [id number] [facility] PPO [id number] [place] [address] Problems, Conditions, and Diagnoses Code Display Name Description Problem Type Effective Data Dates Source(s) T88.7XXA Wga-pmwk-bdquqmb Hqu-jenc-ywjuoaa [id number] 12/05/2019 Francisco Javier n [facility] adverse reaction to adverse reaction to 12:00:0 0 AM Bela medication medication [facility] [employer] [facility] T50.905A Adverse drug Adverse drug [id number] 12/05/2019 [place] s reaction, initial reaction, initial 12:00:00 AM [facility] encounter encounter [facility] [employer] G93.40 Encephalopathy acute Encephalopathy acute 13149748 12/04 [facility] 12:00:00 AM Bela [employer] F31.4 Bipolar disorder Bipolar disorder [id number] 10/29/2019 Francisco Javier n [facility] with severe with severe 12:00:00 AM Bela depression depression [facility] [employer] E55.9 Vitamin D deficiency Vitamin D deficiency 06362231 09/03 [facility] 12:00:00 AM [facility] [employer] [facility] F41.8 Mixed anxiety and Mixed anxiety and 88268294 09/04/2019 [facility] depressive disorder depressive disorder 12:00:0 0 AM [employer] E66.01 Morbid obesity Morbid obesity 78850520 07/21/2019 [facility] 12:00:00 AM [employer] Z98.84 Status post gastric Status post gastric [id number] 020 [facility] bypass for obesity bypass for obesity 12:00:00 AM [employer] F32.9 Depressive disorder Depressive disorder 77448829 020 [facility] 12:00:00 AM [employer] F31.9 Bipolar disorder Bipolar disorder 42594693 07/21/2019 Francisco Javier n [facility] 12:00:00 AM [employer] F41.9 Anxiety Anxiety 90935147 07/21/2019 [facility] 12:00:00 AM [employer] F32.9 Depression Depression 68614207 07/20/2018 [facility] 12:00:00 AM [employer] E66.01 Severe obesity Severe obesity 41936980 07/19/2018 [facility] 12:00:00 AM [employer] [id number] Spells Spells 17938475 04/08/2016 [facility] 12:00:00 AM [employer] G40.909 Seizure disorder Seizure disorder 95610784 04/30/2014 Francisco Javier n [facility] 12:00:00 AM [employer] M79.2 Neuropathic pain of Neuropathic pain of 19098492 014 [facility] shoulder shoulder 12:00:00 [facility] G47.00 Insomnia Insomnia 71564083 11/04/2013 [facility] 12:00:00 [facility] Z98.84 H/O gastric bypass H/O gastric bypass 05917339 3 [facility] 12:00:00 AM [employer] G25.2 Other specified Other specified Diagnosis 01/08/2020 [facility] forms of tremor forms of tremor 03:17:29 PM [facility] [employer] F31.4 Bipolar disorder, Bipolar disorder, Diagnosis 12/25/2019 [facility] - current episode current episode 04:40:00 PM Goo d depressed, severe, depressed, severe, EDT Baptism without psychotic without psychotic Hospital features features F41.9 Anxiety disorder, Anxiety disorder, Diagnosis 12/25/2019 [facility] unspecified unspecified 04:04:24 PM [facility] R25.1 Tremor, unspecified Tremor, unspecified Diagnosis 020 [facility] 04:04:24 PM [facility] Z98.84 Bariatric surgery Bariatric surgery Diagnosis 12/25/2019 [facility] status status 04:04:24 PM [facility] T88.7XXA Unspecified adverse Unspecified adverse Diagnosis 020 [facility] - effect of drug or effect of drug or 11:10:37 AM Good medicament, initial medicament, initial [facility] encounter encounter Hospital G93.40 Encephalopathy, Encephalopathy, Diagnosis 12/05/2019 [facility] - unspecified unspecified 11:10:[address] [facility] R41.82 Altered mental Altered mental Diagnosis 12/05/2019 [facility] - status, unspecified status, unspecified 11:10:[address] [facility] F51.04 Psychophysiologic Psychophysiologic Diagnosis 11/14/2019 [facility] insomnia insomnia 01:22:52 PM [facility] F32.2 Major depressive Major depressive Diagnosis 09/15/2019 [facility] - disorder, single disorder, single 08:22:58 AM G ood episode, severe episode, severe EDT Aidan ritan without psychotic without psychotic Hospital features features F41.8 Other specified Other specified Diagnosis 09/04/2019 [facility] anxiety disorders anxiety disorders 03:49:01 PM [facility] F32.2 Major depressive Major depressive Diagnosis 09/04/2019 Francisco Javier n [facility] disorder, single disorder, single 03:49:01 PM C harity episode, severe episode, severe EDT Heal th without psychotic without psychotic System Inc features features Z23 Encounter for Encounter for Diagnosis 09/04/2019 [facility] immunization immunization 03:49:01 PM [facility] T78.40XA Allergy, Allergy, Diagnosis 08/16/2019 [facility] - unspecified, initial unspecified, initial 08:39 :16 PM Good encounter encounter [facility] R06.00 Dyspnea, unspecified Dyspnea, unspecified Diagnosis 08/10 [facility] - 11:27:27 PM [facility] F31.75 Bipolar disorder, in Bipolar disorder, in Diagnosis 07/21 [facility] partial remission, partial remission, 04:40:28 PM Bela most recent episode most recent episode EST Health depressed depressed [facility] [phone] essential tremor Diagnosis [facility] [id number] Bipolar disorder Diagnosis [facility] with severe [facility] depression ([facility]) [facility] [id number] Anxiety Diagnosis [facility] 1255 1255 hypertension Diagnosis [facility] 883 883 depression Diagnosis [facility] 883 883 depression Diagnosis [facility] 2779 [id number] edema Diagnosis [facility] 883 883 depression Diagnosis [facility] 828 828 evangelina associated Diagnosis [facility] with bipolar [facility] 1255 1255 hypertension Diagnosis [facility] [id number] Anxiety Diagnosis [facility] 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) [facility] 3762 3762 depression Diagnosis Bon [facility] associated with [facility] bipolar disorder [facility] [id number] Acute low back pain Diagnosis [facility] due to trauma [facility] [id number] Acute low back pain Diagnosis [facility] due to trauma [facility] [id number] Bipolar disorder, in Diagnosis [facility] partial remission, Charit y most recent episode Healt h depressed ([facility]) System In c [id number] Herpes zoster Diagnosis Bon [facility] cephalicus [facility] Surgeries/Procedures Procedure Description Date Indications Data Source(s) HC HC Routine 12/25/2019 Bipolar 12/25/2019 Bipolar Francisco Javier n LITHIUM LITHIUM 4:41 PM EDT disorder 04:41:00 PM disorde r [facility] with severe EDT with severe [facility] depression depression He alth ([facility]) ([facility]) System Inc Bipolar disorder with severe depression ([facility]) GLUCOSE, POC GLUCOSE, POC Routine 12/08/2019 12/08/2019 Bon 11:35 AM 11:35:00 AM Sec ours EDT EDT [facility] METABOLIC METABOLIC Routine 12/07/2019 12/07/2019 Bon PANEL, BASIC PANEL, BASIC 4:40 AM EDT 04:40:00 A M [facility] EEG 12-26 HR EEG 12-26 HR Routine 12/06/2019 12/06/2019 Bon W/VIDEO W/VIDEO 10:25 AM 10:25:08 AM [facility] LITHIUM HC LITHIUM Routine 12/06/2019 12/06/2019 Bon 4:25 AM EDT 04:25:[address] [facility] HC LACTIC ACID HC LACTIC ACID STAT 12/05/2019 020 Bon 7:20 PM EDT 07:20:[address] [facility] HC AMMONIA HC AMMONIA STAT 12/05/2019 12/05/2019 Bon 7:20 PM EDT 07:20:[address] [facility] MRI BRAIN WO MRI BRAIN WO STAT 12/05/2019 12/05/2019 Bon CONT CONT 4:50 PM EDT 04:50:[address] [facility] EEG 12-26 HR EEG 12-26 HR STAT 12/05/2019 12/05/2019 Bon W/VIDEO W/VIDEO 3:19 PM EDT 03:19:[address] [facility] CULTURE, URINE CULTURE, URINE Routine 12/05/2019 020 Bon 2:45 PM EDT 02:45:[address] [facility] URINALYSIS W/ URINALYSIS W/ STAT 12/05/2019 0 Bon RFLX RFLX 2:45 PM EDT 02:45:00 PM [facility] MICROSCOPIC MICROSCOPIC [facility] BILIRUBIN, BILIRUBIN, Routine 12/05/2019 12/05/2019 Bon CONFIRM CONFIRM 2:45 PM EDT 02:45:[address] [facility] HC LACTIC ACID HC LACTIC ACID STAT 12/05/2019 020 Bon 12:40 PM 12:40:00 PM Sec [facility] C[facility]URE HC CULTURE STAT 12/05/2019 12/05/2019 Bon BLOOD BLOOD 12:38 PM 12:38:00 PM Sec ours EDT EDT [facility] PROTHROMBIN PROTHROMBIN STAT 12/05/2019 12/05/2019 Bon TIME + INR TIME + INR 12:38 PM 12:38:00 PM [facility] EDT EDT [facility] CBC WITH CBC WITH STAT 12/05/2019 12/05/2019 Bon AUTOMATED DIFF AUTOMATED DIFF 12:38 PM 12:38:00 PM [facility] EDT EDT [facility] HC TROPONIN I HC TROPONIN I STAT 12/05/2019 0 Bon QUANT QUANT 12:38 PM 12:38:00 PM Sec ours EDT EDT [facility] METABOLIC METABOLIC STAT 12/05/2019 12/05/2019 Bon PANEL, PANEL, 12:38 PM 12:38:00 PM Sec ours COMPREHENSIVE COMPREHENSIVE EDT EDT [facility] MAGNESIUM MAGNESIUM STAT 12/05/2019 12/05/2019 Bon 12:38 PM 12:38:00 PM Sec ours EDT EDT [facility] HC LITHIUM HC LITHIUM STAT 12/05/2019 12/05/2019 Bon 12:38 PM 12:38:00 PM Sec ours EDT EDT [facility] CT HEAD WO CT HEAD WO STAT 12/05/2019 12/05/2019 Bon CONT CONT 12:30 PM 12:30:54 PM Sec ours EDT EDT [facility] HC CULTURE HC CULTURE STAT 12/05/2019 12/05/2019 Bon BLOOD BLOOD 12:30 PM 12:30:00 PM Sec ours EDT EDT [facility] XR PELV AP XR PELV AP STAT 12/05/2019 12/05/2019 Bon ONLY ONLY 12:14 PM 12:14:58 PM Sec [facility] EDT EDT [facility] XR CHEST PORT XR CHEST PORT STAT 12/05/2019 0 Bon 12:14 PM 12:14:51 PM Sec [facility] EDT EDT [facility] RT--OXYGEN RT--OXYGEN STAT 12/05/2019 12/05/2019 Bon CANNULA CANNULA 11:20 AM 11:20:37 AM Sec [facility] EDT EDT [facility] EEG DIGITAL EEG DIGITAL Routine 12/05/2019 12/05/2019 Bon ANALYSIS ANALYSIS 11:10 AM 11:10:37 AM S [facility] EDT EDT [facility] CBC WITH CBC WITH STAT 10/30/2019 10/30/2019 Bon AUTOMATED DIFF AUTOMATED DIFF 6:40 AM EDT 06:40: 00 AM [facility] EDT [facility] METABOLIC METABOLIC STAT 10/30/2019 10/30/2019 Bon PANEL, BASIC PANEL, BASIC 6:40 AM EDT 06:40:00 A M [facility] EDT [facility] URINALYSIS W/ URINALYSIS W/ STAT 10/29/2019 0 Bon RFLX RFLX 6:34 PM EDT 06:34:00 PM [facility] MICROSCOPIC MICROSCOPIC EDT [facility] XR CHEST PORT XR CHEST PORT STAT 10/29/2019 0 Bon 12:09 PM 12:09:04 PM Sec [facility] EDT EDT [facility] CT HEAD WO CT HEAD WO STAT 10/29/2019 10/29/2019 Bon CONT CONT 11:47 AM 11:47:42 AM Sec [facility] EDT EDT [facility] HC GLUCOSE HC GLUCOSE Routine 10/29/2019 10/29/2019 Bon POCT POCT 11:26 AM 11:26:00 AM Sec [facility] EDT EDT [facility] PROTHROMBIN PROTHROMBIN STAT 10/29/2019 10/29/2019 Bon TIME + INR TIME + INR 10:45 AM 10:45:00 AM [facility] EDT EDT [facility] CBC WITH CBC WITH STAT 10/29/2019 10/29/2019 Bon AUTOMATED DIFF AUTOMATED DIFF 10:45 AM 10:45:00 AM [facility] EDT EDT [facility] HC PARTIAL HC PARTIAL STAT 10/29/2019 10/29/2019 Bon THROMBOPLASTIN THROMBOPLASTIN 10:45 AM 10:45:00 AM [facility] / PTT / PTT EDT EDT [facility] METABOLIC METABOLIC STAT 10/29/2019 10/29/2019 Bon PANEL, PANEL, 10:45 AM 10:45:00 AM Sec [facility] COMPREHENSIVE COMPREHENSIVE EDT EDT [facility] HC LITHIUM HC LITHIUM STAT 10/29/2019 10/29/2019 Bon 10:45 AM 10:45:00 AM Sec [facility] EDT EDT [facility] XR SPINE LUMB XR SPINE LUMB Routine [...] n [facility] 9:00 PM EST 02:00:00 AM [facility] CBC WITH AUTOMATED CBC WITH STAT 08/16/2019 0 [facility] DIFF AUTOMATED DIFF 9:00 PM EST 02:00:00 AM [facility] TROPONIN I TROPONIN I STAT 08/16/2019 08/17/2019 [facility] 9:00 PM EST 02:00:00 AM [facility] METABOLIC PANEL, METABOLIC PANEL, STAT 08/16/2019 [facility] COMPREHENSIVE COMPREHENSIVE 9:00 PM EST 02:00:00 AM [facility] MAGNESIUM MAGNESIUM STAT 08/16/2019 08/17/2019 [facility] 9:00 PM EST 02:00:00 AM [facility] LITHIUM LITHIUM STAT 08/16/2019 08/17/2019 Francisco Javier n [facility] 9:00 PM EST 02:00:00 AM [facility] INFLUENZA A <td><content ID="[id number]">INFLUENZA A & B 07/26 Bon & B AG AG (RAPID 05:18:00 AM [facility] (RAPID TEST) TEST)</content></td><td>STAT</td><td>08/11/2019 [facility] 12:18 AM EST</td><td></td><td><paragraph Health styleCode="header">Results for this procedure are System in the <content Inc styleCode="xLink2-[id number]">results section</content>.</paragraph></td> PROTHROMBIN PROTHROMBIN STAT 08/11/2019 08/11/2019 Bon [...] Bon 12:01 AM 05:01:00 AM Sec [facility] METABOLIC METABOLIC STAT 08/11/2019 08/11/2019 Bon PANEL, PANEL, 12:01 AM 05:01:00 AM Sec [facility] COMPREHENSIVE COMPREHENSIVE [facility] MAGNESIUM MAGNESIUM STAT 08/11/2019 08/11/2019 Bon 12:01 AM 05:01:00 AM Sec ours [facility] LITHIUM LITHIUM STAT 08/11/2019 08/11/2019 Francisco Javier n 12:01 AM 05:01:00 AM Sec ours [facility] LACTIC ACID LACTIC ACID STAT 08/11/2019 08/11/2019 Bon 12:01 AM 05:01:00 AM Sec ours [facility] BNP BNP STAT 08/11/2019 08/11/2019 Francisco Javier n 12:01 AM 05:01:00 AM Sec ours [facility] RT--OXYGEN RT--OXYGEN STAT 08/10/2019 08/11/2019 Bon CANNULA CANNULA 11:51 PM 04:51:27 AM Sec ours EST EST [facility] Navigator[facility] EKG, 12 LEAD, EKG, 12 LEAD, STAT 08/10/2019 0 Bon INITIAL INITIAL 10:14 PM 03:14:27 AM Sec [facility] EST EST [facility] XR SMALL BOWEL XR SMALL BOWEL Routine 08/02/2018 Morbid 019 Morbid Bon SERIES SERIES 11:01 AM obesity 04:01:14 PM obesity [facility] EST (HCC) EST (HCC) [facility] Morbid obesity (HCC) CBC WITH AUTOMATED CBC WITH STAT 07/12/2018 9 [facility] DIFF AUTOMATED DIFF 12:40 AM EST 05:40:00 AM [facility] TROPONIN I TROPONIN I STAT 07/12/2018 07/12/2018 [facility] 12:40 AM EST 05:40:00 AM [facility] METABOLIC PANEL, METABOLIC PANEL, STAT 07/12/2018 [facility] COMPREHENSIVE COMPREHENSIVE 12:40 AM EST 05:40:0 0 AM [facility] MAGNESIUM MAGNESIUM STAT 07/12/2018 07/12/2018 [facility] 12:40 AM EST 05:40:00 AM [facility] RT--OXYGEN CANNULA RT--OXYGEN STAT 07/12/2018 019 [facility] CANNULA 12:21 AM EST 05:21:15 AM [facility] Results ID Date Data Source [id number] 03/15/2020 10:30:00 AM EDT [facility] Name Value Range Interpretation Description Data Sup porting Code Source(s) Document(s ) SARS [facility] coronavirus 2 RNA This lab was ordered by [facility] and reported by [facility]. ID Date Data Source [id number] 03/12/2020 12:00:00 PM EDT [facility] Name Value Range Interpretation Description Data Sup porting Code Source(s) Document(s ) SARS [facility] coronavirus 2 RNA This lab was ordered by [facility] and reported by [facility]. ID Date Data Source [id number] 03/08/2020 10:18:00 AM EDT [facility] Name Value Range Interpretation Description Data Sup porting Code Source(s) Document(s ) SARS [facility] coronavirus 2 RNA This lab was ordered by [facility] moy [facility] and reported by [facility]. ID Date Data Source [id number] 03/04/2020 09:50:00 AM EDT [facility] Name Value Range Interpretation Description Data Sup porting Code Source(s) Document(s ) SARS [facility] coronavirus 2 RNA [facility] and reported by [facility]. ID Date Data Source [id number] 03/02/2020 12:15:00 PM EDT [facility] Name Value Range Interpretation Description Data Sup porting Code Source(s) Document(s ) SARS [facility] coronavirus 2 RNA This lab was [facility] [place] [facility] and reported by [facility]. ID Date Data Source [id number] 02/27/2020 09:15:00 AM EDT [facility] Name Value Range Interpretation Description Data Sup porting Code Source(s) Document(s ) SARS [facility] coronavirus 2 RNA This lab was ordered by [facility] and reported by [facility]. ID Date Data Source [id number] 02/23/2020 11:40:00 AM EDT [facility] Name Value Range Interpretation Description Data Sup porting Code Source(s) Document(s ) SARS [facility] coronavirus 2 RNA This lab was [facility] [place] [facility] and reported by [facility]. ID Date Data Source [id number] 02/19/2020 09:56:00 AM EDT [facility] Name Value Range Interpretation Description Data Sup porting Code Source(s) Document(s ) SARS [facility] coronavirus 2 RNA This lab was [facility] [place] [facility] and reported by [facility]. ID Date Data Source [id number] 02/16/2020 08:40:00 AM EDT [facility] Name Value Range Interpretation Description Data Sup porting Code Source(s) Document(s ) SARS [facility] coronavirus 2 RNA This lab was [facility] [place] [facility] and reported by [facility]. ID Date Data Source [id number] 02/13/2020 10:05:00 AM EDT [facility] Name Value Range Interpretation Description Data Sup porting Code Source(s) Document(s ) SARS [facility] coronavirus 2 RNA This lab was ordered by [facility] and reported by [facility]. ID Date Data Source [id number] 02/09/2020 10:25:00 AM EDT [facility] Name Value Range Interpretation Description Data Sup porting Code Source(s) Document(s ) SARS [facility] coronavirus 2 RNA This lab was ordered by [facility] and reported by [facility]. ID Date Data Source [id number] 01/25/2020 09:20:00 AM EDT [facility] Name Value Range Interpretation Description Data Sup porting Code Source(s) Document(s ) 2019 Novel [facility] Coronavirus RNA Interpretation Unspecified Specimen Qualitative CATA Probe Detection This lab was ordered by [facility] and reported by [facility]. ID Date Data Source [id number] 12/25/2019 05:54:30 PM EDT [facility] Name Value Range Interpretation Description Data Sup porting Code Source(s) Document(s ) Cesar Chavez 0.38 0.6-1.2 Below low normal [facility] [Moles/volu MMOL/L [facility]] in Hospital Serum or Plasma ID Date Data Source [id number] 12/23/2019 01:50:56 PM EDT [facility] Discharge SummaryPatient: Maxwell mackey Sex: male DOA: 12/05/2019Date of : 1970 A ge: 49 y.o. LOS: LOS: 3 daysAdmit Date: 12/05/2019Discharge Date: 12/08/2019 Admission Diagnoses: Encephalopathy acute [G93.40];Ecc-wvrg-zlptcan adversereactio n to medication [T88.7XXA];Vay-irht-tpsdraj adverse reaction tomedication [T88.7XXA] Discharge Diagnoses: #1 [...] ICD-10-CM: T50.905AICD -9-CM: E947.9 12/05/2019 - Present Nxt-xilr-fblquak adverse reaction to med ication ICD-10-CM: T88.8FPLFBS-4-ZZ: 995.20 12/05/2019 - Present Bipolar disorder wit [...] E66.01ICD-9-CM: 278.01 07/19/2018 - Present Spells ICD-10-CM: [id number]-0-CK: IMO00 01 04/08/2016 - Present Seizure disorder [...] Supporting Document(s ) ID Date Data Source [id number] 12/09/2019 02:14:04 PM EDT [facility] referral made. Walker order faxed t o [facility], [facility] and [employer] do NOT acc ept pts insurance.Faxed to Moriah at [facility] at FAX [phone]. She reports they ne ed to get authfor walker. Have instucted pt to buy own walker IF not authorized.He i s agreeable to buying walker if needs to.Care Management InterventionsPCP Verified by CM: YesTransition of Care Consult (CM Consult): [facility] Home Car e: YesCurrent Support Network: Own Home, Lives with SpouseThe Patient and/or Prachi ent Child Protective Investigator was Provided with a Choice of Providerand Agrees with the Discharge Plan?: YesFreedom of Choice List was Provided with Basic Dialogue that Suppor ts thePatient's Individualized Plan of Care/Goals, Treatment Preferences and Sh aresthe Quality Data Associated with the Providers?: YesVeteran Resource Informat ion Provided?: RefusedDischarge LocationDischarge Placement: Home with [facility] [employer](ACCEPTED BY [facility])Pt is discharged , picking him up. reports she has phone number timbo pt a follow up psych appt. [facility] to visit. will buy walker if not able to get thru [employer].Post dc note 12/08[employer] reports 50% copay - they lef t message on 's phone.I also, left a message with my call back number for any questions. hadreported to me she planned on buying a walker and would ret urn if insurance paidfor one. Name Value Range Interpretation Code Description Data [facility] Supporting Document(s ) ID Date Data Source [id number] 12/08/2019 03:06:17 PM EDT [facility] I have reviewed discharge instructions w ith the patient. The patient verbalizedunderstanding.Discussed with t he patient and all questioned fully answered. He will call me ifany problems arise.If you experience chest pain call 911. [address] yourself.Patient armband removed a nd shredded. IV removed and discharged home stable. Name Value Range Interpretation Code Description Data [facility] Supporting Document(s ) ID Date Data Source [id number] 12/08/2019 03:02:56 PM EDT [facility] Per your note, pt with acute encephalopa thy and toxic Serum Cesar Chavez level.Please specify the type of encephalopathy in yo ur progress notes: Toxic encephalopathy due to lithium Metabolic encephalopathy due to Other cause (please specify) Clinically unable to determine UnknownPLEASE DOCUM ENT ANY ADDITIONAL DIAGNOSES AND/OR SPECIFICITY IN THE PROGRESSNOTES AND/OR DISCHARGE SUMMARY. Name Value Range Interpretation Code Description Data [facility] Supporting Document(s ) ID Date Data Source [id number] 12/08/2019 02:40:45 PM EDT [facility] Problem: SuicideGoal: *STG: Remains safe in hospital12/08/2019 1440 by Basilio Moshercome: Resolved/Met12/08/2019 1439 by Basilio Moshercome: Progressing Towards GoalGoal: *STG: Seeks staff when feeling s of self harm or harm towards others arise12/08/2019 1440 by Basilio Moshercome : Resolved/Met12/08/2019 1439 by Ru Mosher: Progressing Towards [...] destr uctive or suicidal thoughts12/08/2019 1440 by Ru Mosher: Resolved/Met12/08/2019 143 by Ru Mosher: Progressing Towards GoalGoal: *LTG: Identifies [employer]12/08/2019 1440 by Ru Mosher: Resolved/Met12/08/2019 1439 by Ru Mosher: Progressing Towards GoalGoal: *LTG: Develops proact sarah suicide prevention plan12/08/2019 1440 by Basilio Moshercome: Resolved/Met12/08/2019 1439 by Ru Mosher: Progressing Towards GoalGoal: Interventions12/08/2019 1440 by Ru Mosher: Resolved/Met12/08/2019 143 by Glenys Mosher Outcome: Progressing Towards GoalProblem: Patient Education: Go to Patient Educati on ActivityGoal: Patient/Family Education12/08/2019 1440 by Basilio Mosher come: Resolved/Met12/08/2019 1439 by Ru Mosher: Progressing Towards GoalPro blem: Falls - Risk ofGoal: *Absence of FallsDescription: Document Carmen Fall R isk and appropriate interventions [facility]12/08/2019 1440 by Divya Mosher: Resolved/MetNote: Fall Risk [...] by Ru Mosher: Progressing T owards GoalProblem: Pressure Injury - Risk ofGoal: *Prevention of pressure injuryDe scription: Document Harsh Scale and appropriate interventions in [facility].12/08/2019 1440 by Ru Mosher: Resolved/MetNote: Pressure Injury [...] b y Ru Mosher: Resolved/Met12/08/2019 1439 by Basilio Moshercome: Progressing T owards GoalProblem: Fluid Volume - Risk of, ImbalancedGoal: *Balanced intake and out put12/08/2019 1440 by Basilio Moshercome: Resolved/Met12/08/20191438 by Glenys Mosher Outcome: Progressing Towards GoalProblem: Patient Education: Go to Patient Educati on ActivityGoal: Patient/Family Education12/08/2019 1440 by Basilio Mosher come: Resolved/Met12/08/2019 1439 by Basilio Moshercome: Progressing Towards GoalPro blem: Patient Education: Go to Patient Education ActivityGoal: Patient/Family E ducation12/08/2019 1440 by Basilio Moshercome: Resolved/Met12/08/20191438 by Glenys Mosher Outcome: Progressing Towards Goal Name Value Range Interpretation Code Description Data Melani rce(s) Supporting Document(s ) ID Date Data Source [id number] 12/08/2019 02:40:17 PM EDT [facility] Problem: SuicideGoal: *STG: Remains safe [...] Fall R isk and appropriate [facility].Outcome: Progressing Toward s GoalNote: Fall Risk Interventions:Mobility [...] Document Harsh Scale and [facility].Outcome: P rogressing Towards GoalNote: Pressure Injury Interventions:Sensory [...] Supporting Document(s ) ID Date Data Source [id number] 12/08/2019 01:18:54 PM EDT [facility] Daily Progress NoteAdmit Date: Hospital day: .tdSubjective:Psycgm Neuro,and PT assessments reviewed. Patie nt qualifies for discharge. Wifecalled, will bring in clothes. New medical regimen di scussed with the . Willneed Cesar Chavez level later this week.Current Facility-Adminis tered MedicationsMedication [...] past 8 hrs: BP Temp Pulse Resp KqG90912/07 0816 - - - - 96 %12/08/19 [...] initial encounter (12/05/2019)Active Problems: Encephalopathy acute (12/05/2019) Qvs-hxrg-ztcfsyw adve rse reaction to medication (12/05/2019)Plan: day of discharge. Name Value Range Interpretation Code Description Data Melani rce(s) Supporting Document(s ) ID Date Data Source [id number] 12/08/2019 12:09:30 PM EDT [facility] Problem: Mobility Impaired (Adult and [...] y.o. male)Date: 12/08/2019Primary Diagnosis: E ncephalopathy acute [G93.40]Oos-ijkp-ersnsbv adverse reaction to medication [T88.7XXA ]Rys-vser-qoalksv adverse reaction to medication [T88.7XXA]Precautions: Fall ASSESSMENT [...] morbidi ty or mortality cardiac cath at [facility] approx 6-8 months ago Other unknown and [...] NoneCritical Beh avior:Neurologic State: AlertOrientation Level: Oriented I6Kghyqawvg: Appropriate for age attention/concentration;Follows commandsSafety/Judgement: Decreased awar [...] Supporting Document(s ) ID Date Data Source [id number] 12/08/2019 11:48:26 AM EDT [facility] Name Value Range Interpretation Description Data Sup porting Code Source(s) Document(s ) Glucose 132 MG/DL 65-110 Above high normal [facility] [Mass/volume] Baptism in Blood by [facility] Automated test strip ID Date Data Source [id number] 12/08/2019 10:35:45 AM EDT [facility] S/O Patient has shown improvement. He re ports that medications are helping him.He denies any side effectsHe denies any cecilia cidal thoughtsHe reports that he [facility] a [facility] 300 mg bid Cesar Chavez level in two days Will increase Zyprexa 5 mg Will follow up as requested Name Value Range Interpretation Code Description Data [facility] rce(s) Supporting Document(s ) ID Date Data Source [id number] 12/08/2019 07:28:52 AM EDT [facility] Bedside and Verbal shift change report g iven to Xavi, SUSI (oncoming nurse) Annalise DE LEON, SUSI (offgoing nurse). Repor t included the followinginformation SBAR, Kardex, MAR and Recent Results. Name Value Range Interpretation Code Description Data [facility] rce(s) Supporting Document(s ) ID Date Data Source [id number] 12/07/2019 08:26:02 PM EDT [facility] Problem: Falls - Risk ofGoal: [...] Supporting Document(s ) ID Date Data Source [id number] 12/07/2019 07:05:28 PM EDT [facility] Verbal shift change report given to Chandrakant Cox RN (oncoming nurse) by Steven Villalobos RN (offgoing nurse). Report inc luded the following information SBAR, Kardex,Intake/Output, MAR, Recent Result s and Cardiac Rhythm on telemetry. Name Value Range Interpretation Code Description Data [facility] rce(s) Supporting Document(s ) ID Date Data Source [id number] 12/07/2019 01:30:56 PM EDT [facility] Trent Jacob MD[address] [place] [address] [id number].[employer] Progress NotePatient: Maxwell Bray Sex: male DOA: [...] (LOVENOX) injection 40 mg 40 mg SubCUTAneous [id number]:Visit VitalsBP 153/85 (BP 1 Location: Left arm, BP Prachi ent Position: At rest)Pulse 96Temp 98.7 F (37.1 C)Resp 20Ht 5' 5.75" (1.67 m)Wt 3 01 lb 1.6 oz (136.6 kg)SpO2 96%BMI 48.97 kg/m Body mass index is 48.97 kg/m .Patient V itals for the past 24 hrs: Temp Pulse Resp BP VwX45112/07/19 1249 - 96 - 153/85 - 0 [...] the time notated as "note time" in [facility]. (It is not time stamped separately [...] shoulder M79.2 Seizure disorder (HCC) G40.909 Spells [id number] Severe obesity (HCC) E66.01 Depression F32.9 Anxiety F41.9 Bipolar disorder (HCC) F31.9 Depressive disorder F32.9 Status post g astric bypass for obesity Z98.84 Morbid obesity (HCC) E66.01 Mixed anxiety and depressive disorder F41.8 Vitamin D deficiency E55.9 Bipolar disorder with severe depression (HCC) F31.4 Encephalopathy acute G93.40 Adverse drug reaction, ini tial encounter T50.905A Rhc-afzp-dcpsrvb adverse reaction to medication T88.7XXA 49 year [...] Supporting Document(s ) ID Date Data Source [id number] 12/07/2019 01:02:36 PM EDT [facility] Pt seen and discussed with Dr Canas .Pt is tearful flat and denies any suicidal thoughts , has been depressed withlithiu m on hold , No Vraylar and he is unable to get his ECT at [facility] And no w will be with [facility] with Dr Womack his lithium level is un therape utic range I will start on lithium , add 2.5mg of zyprexa and lower his klonopin And increase his elavil to 200 mg HSWill get pt followed up with Psychiatry Name Value Range Interpretation Code Description Data Melani rce(s) Supporting Document(s ) ID Date Data Source [id number] 12/07/2019 12:52:32 PM EDT [facility] Problem: Fluid Volume - Risk of, Imbalan cedGoal: *Balanced intake and outputOutcome: Progressing Towards GoalProblem: Patient Education: Go to Patient Education ActivityGoal: Patient/Family EducationOu tcome: Progressing Towards Goal Name Value Range Interpretation Code Description Data Melani rce(s) Supporting Document(s ) ID Date Data Source [id number] 12/07/2019 12:45:20 PM EDT [facility] Problem: Falls - Risk ofGoal: [...] Bra den Scale and appropriate interventions in theflowsheet.Outcome: Progressing Toward s GoalNote: Pressure Injury Interventions:Sensory [...] Supporting Document(s ) ID Date Data Source [id number] 12/07/2019 12:24:47 PM EDT [facility] Daily Progress NoteAdmit Date: Hospital day: .tdSubjective:Patient more responsive today, tearful , express ing desire to see his amadou. EEG study completed. Hungry! Await PT assessment. [...] injection 40 mg 40 mg SubCUTA neous C88LDweabextq:Patient Vitals for the past 8 hrs: BP Temp Pulse Resp UtD79612/06 0956 147/86 98.7 F (37.1 C) 95 [...] initial encounter (12/05/2019)Active Problems: Encephalopathy acute (12/05/2019) Sqn-cplv-hygddhr adve rse reaction to medication (12/05/2019)Plan:To increase activity, diet,klonopin. Start Losartan Name Value Range Interpretation Code Description Data Melani rce(s) Supporting Document(s ) ID Date Data Source [id number] 12/07/2019 10:13:28 AM EDT [facility] - [facility] LT EEG hook puller DC'd per Dr. Jacob. Name Value Range Interpretation Code Description Data Melani rce(s) Supporting Document(s ) ID Date Data Source [id number] 12/07/2019 10:08:27 AM EDT [facility] [place] [address] [place], [place] [address]PNGXQPJ: MAXWELL BRAYMRN: [id number]: [id number]#: [id number] DATE: 12/05/2019LONG TERM MONITORING VIDEO QUARTER SEAMER: Riky Rodriguez HISTORY: The patient is a [...] montages. Digital analysis was performed employing an [employer] neuralnetwork program with parameterization and statistical analysi [...] seen, that attenuates with eye opening.There was odva-ch-aadefvsz gener alized background slowing.There was no clear focal slowing.ACTIVATION TECHNIQUES: Ph otic stimulation and hyperventilation were notperformed.SLEEP: During drowsiness, there is mild attenuation and slowing of thebackground rhythm. There was normal sleep seen including symmetric vertexwaves, sleep spindles, and K-complexes.OTHER AC TIVITY: There were no clear epileptiform discharges and no seizures orclinical ev ents recorded.DIGITAL ANALYSIS: Variable spectral pattern without significant lef t-ew-wmaglzlnzywdfezc. Spikes were artifact in nature.DECEMBER 06 DAILY [...] the awake and asleep states due to jelb-pl-hfljwwoe diffuse cerebraldysfunc tion that improves to mild over the course of the recording. TRENT JACOB, MDDD: #12/06/2019 10:21:35/SS /v_hsisk_i/[id number]_pJob #: [id number] / [id number] Name Value Range Interpretation Code Description Data [facility] Supporting Document(s ) ID Date Data Source [id number] 12/07/2019 07:45:20 AM EDT [facility] Bedside and Verbal shift change report cristi Dove RN (3Loria) (oncomingnurse) by Vy Green RN (offgoing nurse). Report included the following information SBAR, Kardex, MARand Recent Results. Name Value Range Interpretation Code Description Data [facility] Supporting Document(s ) ID Date Data Source [id number] 12/07/2019 07:22:41 AM EDT [facility] All leads and head wrapping intact. Day 2 LTM complete. Awaiting instructions tocontinue for day 3 or DC. Name Value Range Interpretation Code Description Data [facility] Supporting Document(s ) ID Date Data Source [id number] 12/07/2019 05:19:11 AM EDT [facility] Name Value Range Interpretation Description Data Sup porting Code Source(s) Document(s ) Sodium 138 136-145 [facility] [Moles/volume] mmol/L [facility] Serum or Hospital Plasma Potassium 3.5 3.5-5.1 [facility] [Moles/volume] mmol/L [facility] in Serum or Hospital Plasma Chloride 106 98-107 [facility] [Moles/volume] mmol/L [facility] in Serum or Hospital Plasma Carbon 27 21-32 [facility] dioxide, total mmol/L [facility] [Moles/volume] Hospital in Serum or Plasma Anion gap in 10 10-20 [facility] Serum or mmol/L [facility] Plasma Hospital Glucose 140 74-106 Above high normal [facility] [Mass/volume] mg/dL [facility] in Serum or Hospital Plasma Urea nitrogen 19 mg/dL 7-18 Above high normal [facility] [Mass/volume] [facility] in Serum or Hospital Plasma Creatinine 0.94 0.70-1.3 [facility] [Mass/volume] mg/dL 0 [facility] in Serum or Hospital Plasma Glomerular >60 [facility] rate/1.73 sq M Hospital predicted among blacks [Volume Rate/Area] in Serum or Plasma by Creatinine-bas ed formula (MDRD) Glomerular >60 [facility] rate/1.73 sq M Hospital predicted among non-blacks [Volume Rate/Area] in Serum or Plasma by Creatinine-bas ed formula (MDRD) (NOTE)Estimated GFR is calculated using the Modification of Diet in RenalDisease (MDRD) Study equation, reported for both Americans(GFRAA) and non- Americans (GFRNA), and normalized to 1.7 4b4wjgf surface area. The physician must decide which [...] Serum 9.1 mg/dL 8.5-10.1 [facility] ID Date Data Source [id number] 12/06/2019 08:12:24 PM EDT [facility] Bedside and Verbal shift change report cristi Loyd RN (oncoming nurse) Estephania Wakefield RN (offgoing nurse). Report included the followinginformation SBAR, Kardex, MAR, Recent Results, and Med Rec Status. Name Value Range Interpretation Code Description Data Melani rce(s) Supporting Document(s ) ID Date Data Source [id number] 12/06/2019 04:57:12 PM EDT [facility] General Daily Progress NoteAdmit Date: [...] (LOVENOX) injection 40 mg 40 mg SubCUTAneous P15EBunrgtlim:Patient Vi tals for the past 8 hrs: BP Temp Pulse Resp GwH48512/06/19 1547 (!) 164/100 99.6 F (3 7.6 [...] Time: 12/06/19 4:25 AMResult Value Ref Range Cesar Chavez level 1.09 0.6 - 1.2 MMOL/L Xr [...] initial encounter (12/05/2019)Active Problems: Encephalopathy acute (12/05/2019) Exm-gkiq-dumryjh adve rse reaction to medication (12/05/2019)Plan:To reduce iv fluids, repeat lasix Name Value Range Interpretation Code Description Data Melani rce(s) Supporting Document(s ) ID Date Data Source [id number] 12/06/2019 04:14:48 PM EDT [facility] Psychiatry Consult NoteSubjective:Patien t: Maxwell Bray Age: [...] of morbidity or mortality cardiac cath at [facility] approx 6-8 months ago Other unknown and unspecified cause of morbidity or mortal ity concussions Other unknown and unspecified cause of morbidity or mortal ity "periodic disorientation" Other unknown and unspecified cause of morbidity or mo rtality anxiety Psychiatric disorder anxiety, depressionPsychiatric History: Patient reported he was receiving care in outpatient from [facility] psychiatrist t did not discuss details.Substance Use History:Social HistorySubstance and Sexu al ActivityAlcohol Use No Frequency: Never Drinks per session: 1 or 2 Binge freque ncy: NeverSocial HistorySubstance and Sexual ActivityDrug Use NoObjective:Vitals/Phys ical Assessment:Patient Vitals for the past 8 hrs: BP Temp Pulse Resp ViZ46812/06/19 081 3 (!) 153/94 100.4 F (38 [...] encounter (12/05/2019)A ctive Problems: Encephalopathy acute (12/05/2019) Ldh-jkkt-jkljkuu adverse re action to medication (12/05/2019)Plan:No current [...] Supporting Document(s ) ID Date Data Source [id number] 12/06/2019 01:18:16 PM EDT [facility] Trent Jacob MD[address], [address] [place] [address] [phone] Progress NotePatient: Maxwell Bray Sex: male DOA: 12/05/2019Date of : 1970 Age: 49 y.o. LOS: LOS: 1 daySubjective:Awake, alert, tremulous, no current complaintsEEG w/ mild to mod gen slowREVIEW OF SYSTEMS: NO CP, SOB, N,V,D, F,CCurrent Facility-Administered MedicationsMedication Dose Route Frequen cy 0.9% sodium chloride infusion 125 mL/hr IntraVENous CONTINUOUS enoxaparin (LOVE NOX) injection 40 mg 40 mg SubCUTAneous V72TGtwyqqxdp:Visit VitalsBP (!) 153/94 (BP 1 Location: Left arm, BP Patient Position: At rest)Pulse 100Temp 100.4 F (38 C)Resp 18Ht 5' 5.75" (1.67 m)Wt 300 lb (136.1 kg)SpO2 96%BMI 48.79 kg/m Body mass index is 48.79 kg/m .Patient Vitals for the past 24 hrs: Temp Pulse Resp BP [id number] 0813 100.4 F (38 C) 100 18 [...] past 24 hours were reviewed both during [facility] daily workflow process and at the time notated as "note time" in [facility]. (It is not time stamped separately [...] Time: 12/06/19 4:25 AMResult Value Ref Range Cesar Chavez level 1.09 0.6 - 1.2 MMOL/LCT Results (most recent):[facility] from [facility] on 12/05/19CT HEAD WO CONT Narrative [...] the brain.MRI Results (most recent):[facility] from [facility] encounter on 12/05/19MRI BRAIN WO CONT Narrative [...] hic pain of shoulder M79.2 Seizure disorder ([facility]) G40.909 Spells [id number] Severe ob esity ([facility]) E66.01 Depression F32.9 Anxiety F41.9 Bipolar disorder ([facility]) F31.9 Dep ressive disorder F32.9 Status post gastric bypass for obesity Z98.84 Morbid obesit y ([facility]) E66.01 Mixed anxiety and depressive disorder F41.8 Vitamin D deficiency E55 .9 Bipolar disorder with severe depression ([facility]) F31.4 Encephalopathy acute G93.40 Adverse drug reaction, initial encounter T50.905A Eau-gzrd-anqbgkz adverse react ion to medication T88.7XXA49 year [...] Value Range Interpretation Code Description Data [facility] rce(s) Supporting Document(s ) ID Date Data Source [id number] 12/06/2019 11:43:34 AM EDT [facility] LTM study day 1 complete. All leads and head wrapping intact. Day 2 LTM studycommenced and LIVE via WIFI on [facility]. 06/28 Name Value Range Interpretation Code Description Data [facility] rce(s) Supporting Document(s ) ID Date Data Source [id number] 12/06/2019 10:48:32 AM EDT [facility] Care Management InterventionsPCP Verifie d by CM: YesCurrent Support Network: Own Home, Lives with SpouseThe Patient and/o r Patient Child Protective Investigator was Provided with a Choice of Providerand Agrees with the Betty rose Plan?: YesFreedom of Choice List was Provided with Basic Dialogue that Suppor ts thePatient's Individualized Plan of Care/Goals, Treatment Preferences and Sh aresthe Quality Data Associated with the Providers?: YesVeteran Resource Informat ion Provided?: RefusedDischarge LocationDischarge Placement: HomeCASE PAM LORENZ PSYCHOSOCIAL ASSESSMENTMaxwell Mendieta Asa Admission Marlon e: 12/05/2019MRN: [id number] of : 1970Current date: 12/06/2019 DISCHARGE PLAN: Patient is a 49 year old male admitted to [facility]. CM attempted toreach hi m via room phone and was unsuccessful. CM spoke with the spouses ,Blanca at . Prior to hospitalization patient was independent of allADL's and ambulati ng prior to this incident. During this most recent episode,patient became lethargic with increasing confusion, weakness, and experiencingtremors in his legs. Karsten faust has a walker and has been out of work sinceDece2018 due to his depression .CM discussed advance directives. Patient has no living will and health careproxy. She wishes for him to remain a full code.CM discussed discharge planning. PT will ev aluate for discharge needs. Familyamenable to services. Open for SNF. Family would like [facility]. CM CCLINKD. CM willfollow.Patient Information:Patients Preferred [...] Ritika Canas MDAdmitting Provider: Ritika lobo MDINOVA [facility]IR[facility] INCHFREEMAN [facility] IN[facility] PIPE FITTER SUPERVISOR: N/APayor: P ayor: [facility] HEALTH PLAN / Plan: [facility] HEALTH PLAN /Product Type: [facility] /Secondary Payor : @[facility]ENTERINSGROUPNAME@Encephalopathy acute [G93.40]Cnz-scfn-rhanevr adverse reactio n to medication [T88.7XXA]Hdp-ayta-fihgrld adverse reaction to medication [T88.7XXA ]Patient Active Problem ListDiagnosis Code H/O gastric bypass Z98.84 Insomnia G47. 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) E66.01 Depression F32.9 Anxiety F41.9 Bipolar disorder (HCC) F31.9 Depressive disorder F32.9 Status post gastric bypass for ob esity Z98.84 Morbid obesity (HCC) E66.01 Mixed anxiety and depressive disorder F4 1.8 Vitamin D deficiency E55.9 Bipolar disorder with severe depression ([facility]) F3 1.4 Encephalopathy acute G93.40 Adverse drug reaction, initial encounter T50.905 A Qzx-htjs-zxxspve adverse reaction to medication T88.7XXASocial HistorySubstan ce [...] Supporting Document(s ) ID Date Data Source [id number] 12/06/2019 07:40:06 AM EDT [facility] 1938: Patient found in bed [...] Supporting Document(s ) ID Date Data Source [id number] 12/06/2019 05:07:27 AM EDT [facility] Name Value Range Interpretation Description Data Sup porting Code Source(s) Document(s ) Cesar Chavez 1.09 0.6-1.2 [facility] [Moles/volu MMOL/L [facility] in Hospital Serum or Plasma ID Date Data Source [id number] 12/05/2019 07:59:09 PM EDT [facility] Name Value Range Interpretation Description Data Sup porting Code Source(s) Document(s ) Ammonia 16 UMOL/L 11-32 [facility] [Moles/volum Baptism e] in Plasma Hospital ID Date Data Source [id number] 12/05/2019 07:56:38 PM EDT [facility] Name Value Range Interpretation Description Data Sup porting Code Source(s) Document(s ) Lactate 0.9 0.4-2.0 [facility] [Moles/volu MMOL/L [facility]] in Hospital Serum or Plasma ID Date Data Source [id number] 12/05/2019 06:42:57 PM EDT [facility] LTM EEG hook puller complete. Day 1 LTM comm enced and LIVE via WIFI on [facility] 06/28 Name Value Range Interpretation Code Description Data Melani rce(s) Supporting Document(s ) ID Date Data Source [id number] 12/05/2019 06:07:34 PM EDT [facility] [id number] [employer] [address] [place] [address] [phone] Maxwell Bray (Male) [id number] I 3 ED Dispo:ADMIT Chief Complaint: Fall, Fatigue Diagnosis: Altered mental status, unspecified altered mental status type [] Adverse drug reaction, initial encounter [] Encephalopathy acute [] Onf-jvlf-enfvxzt adverse effect of medication, subsequent encounter [] Bipolar disorder with severe depression (HCC) [] H/O gastric bypass [] Curre nt Providers: Attending: Patsy Manzo; Kristy Otero; Cristi Canas Consulting Provider: Jose Centeno; Cristi Canas; Javier Khan; Cristi Frazier Primary Nurse: BAILEY GambleN: [phone] 5 [phone] [employer] [phone] - [facility] Ed Medva MrnMRN: [id number] [employer] [phone] - [facility] Age SexDOB 1970 AGE 49 SEX Male Primary Care Provider: Ritika Canas MD Phone: Allergies: (No Known Allergies)Date Reviewed: 12/05/2019Reviewed by: Ritika Canas MD - Review CompleteED Provider Notes: All notesHNO ID: [id number]: Julio Manzo MDService: EMERGENCYAuthor Type: Physici anFiled: [...] of morbidity or mortality cardiac cath at [facility] approx 6-8 months ag o Other unknown [...] week Gets together: Once a week Attends bahai service: More than 4 times per year [...] room air, wh ich indicates normaloxygenation per Jluio Manzo MD.Physical ExamVitals signs and nursing note [...] visualiz ation of images, tracings, or specimens: yesProElan Monahan [...] Calculation (Bez et) 515 ms Calculated P [place] 40 degrees Calculated R [place] 41 degrees Calculated T [place] 147 degrees Diagnosis Sinus tachycardiaProbable left atrial [...] Time: 12/05/19 12:38 PMResult Value Ref Range Cesar Chavez level 1 .53 (HH) 0.6 - 1.2 MMOL/LLACTIC ACID Collection Time: 12/05/19 12:40 PMResult Value Ref Range Lactic acid 1.1 0.4 - 2.0 MMOL/LEKG:Sinus tachycardia at 100 BPM, normal axis, nothing acute.Interpreted by Julio Manzo MD11:20 AM quality assurance monitor final reading shows sinus tachycardia at 100 BPM.Interpreted [...] the brain. Narrative: CT HEAD W/O CONTRASTPRIOR: Joe bloomle: Most recent October 29, 2019: "No acute [...] yesGloves: yesGown: yesPatient was seen during Covi d-19 pandemic which may have affected standardof care.Final Impression/Diagnosis:Encounter Diagnoses ICD-10-CM ICD-9-CM1. Altered mental status, unspecified altered mental status type R41.79959.97Patient c ondition at time of disposition: StableI [...] dailyas needed. Other, Phys, MDMaoJulio MD I, Kishore Lozano, am serving as a scribe to document servi jaxon personallyperformed by Julio Manzo MD based on my observation and the provider'sstatements to me.I, Patsy Manzo MD, attest that the person(s) noted above, acting as myscribe(s) noted above, has observed my performance of the services and hasdocumented them in accordance with my direction. I have personallyreviewed the above information and have ordered and reviewed thediagnostic studies, unless otherwise noted.+ED Orde [id number] 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 [#[id number]] Priority: STAT Class: Hospital Performe d Standing Order Information Remaining Occurrences:0/1 Interval:Continuous Last release d:12/05/2019 Released orders: SunDec 05, 2019 11:20 AM by: JULIO MANZO Type: -> Bedside N [id number] PULSE OXIMETRY CONTINUOUS [#[id number]] Priority: STAT Class: Hospital Performe d Standing Order Information Remaining Occurrences:0/1 Interval:CONTINUOUS Last release d:12/05/2019 Released orders: SunDec 05, 2019 11:20 AM by: JULIO MANZO [id number] PULSE OXIMETRY SPOT CHECK [#[id number]] Priority: STAT Class: Hospital Performed Standing Order Inf ormation Remaining Occurrences:0/1 Interval:ONE TIME Last released:12/05/2019 Release d orders: SunDec 05, 2019 11:20 AM by: JULIO MANZO [id number] OBTAIN OLD EKG [ #[id number]] Priority: Routine Class: Hospital Performed Standing Order Information Remainin g Occurrences:0/1 Interval:ONE TIME Last released:12/05/2019 Released orders : SunDec 05, 2019 11:20 AM by: JULIO MANZO [id number] 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 [# [id number]] Priority: STAT Class: Hospital Performed Type: -> Bedside Released on: 12/05/2019 11:20 AM [id number] PULSE OXIMETRY CONTINUOUS [#[id number]] Priority: STAT Class: Hospital Performe d Released on: 12/05/2019 11:20 AM [id number] PULSE OXIMETRY SPOT CHECK [#[id number]] Priori ty: STAT Class: Hospital Performed Released on: 12/05/2019 11:20 AM [id number] OBTAIN OLD EKG [#[id number]] Priority: STAT Class: Hospital Performed Released on: 12/05/2019 11:20 AM [id number] VITAL SIGNS PER UNIT ROUTINE [#[id number]] Priority: STAT Class: Hospital Performed Stand ing Order Information Remaining Occurrences:0/1 Interval:CONTINUOUS Last released :12/05/2019 Released orders: SunDec 05, 2019 2:41 PM by: RITIKA CANAS Comment:More frequent ly if Indicated. [id number] BEDREST, COMPLETE [#[id number]] Priority: STAT Class: H ospital Performed Standing Order Information Remaining Occurrences:0/1 Interval:CONTIN UOUS Last released:12/05/2019 Released orders: SunDec 05, 2019 2:41 PM by: RITIKA CANAS [id number] NOTIFY PROVIDER: VITAL SIGNS CHANGES [#[id number]] Priority: STAT Class: Hospital Performe d Standing [...] Less than 120 ml in 4 hours [id number] APPLY/MAINTAIN SEQUENTIAL COMPRESSIO* [# [id number]] Priority: STAT Class: Hospital Performed Standing Order Information Remaining Occurre nces:0/1 Interval:CONTINUOUS Last released:12/05/2019 Released orders: SunDec 05, 2019 2:41 PM by: RITIKA CANAS [id number] VITAL SIGNS PER UNIT ROUTINE [#[id number]] Priorit y: STAT Class: Hospital Performed Comment:More frequently if Indicated. Released on: 12/05/2019 2 :41 PM [id number] BEDREST, COMPLETE [#[id number]] Priority: STAT Class: Hospital Performe d Released on: 12/05/2019 2:41 PM [id number] NOTIFY PROVIDER: VITAL SIGNS CHANGES [#[id number]] Priority: STAT Class: Hospital Performed Temp -> [...] carmen rs Released on: 12/05/2019 2:41 PM [id number] APPLY/MAINTAIN SEQUENTIAL COMPRESSIO* [#[id number]] P riority: STAT Class: Hospital Performed Released on: 12/05/2019 2:41 PM [id number] RT--OXYGEN CANNULA [#[id number]] Priority: STAT Class: Hospital Performed Standing Order Information Remaining Occurrences:0/1 Interval:CONTINUOUS Last released:12/05/2019 Released o rders: SunDec 05, 2019 11:20 AM by: JULIO MANZO LPM -> 2 Indications for O2? -> CHEST PAIN [id number] RT--OXYGEN CANNULA [#[id number]] Priority: STAT Class: Hospital Performe d LPM -> 2 Indications for O2? -> CHEST PAIN Released on: 12/05/2019 11:20 AM [id number] DIET NPO [#[id number]] Canceled Priority: STAT Class: Hospital Performed Cancele d by RITIKA CANAS on SunDec 05, 2019 2:41 PM Reason: None Comment: Standing Order Information Remaining Occurrences:0/1 Interval:DIET EFFECTIVE NOW Last released:12/05/2019 Release d orders: SunDec 05, 2019 11:20 AM by: JULIO MANZO NPO options: -> With Meds [id number] DIET NPO [#[id number]] Canceled Priority: STAT Class: Hospital Performed Cancele d by RITIKA CANAS on SunDec 05, 2019 2:41 PM Reason: None Comment: NPO options: -> With Meds Released on: 12/05/2019 11:20 AM [id number] DIET NPO [#[id number]] Priority: S TAT Class: Hospital Performed Standing Order Information Remaining Occurrences:0/1 Inter haile:DIET EFFECTIVE NOW Last released:12/05/2019 Released orders: SunDec 05, 2019 2:41 PM by: RITIKA CANAS [id number] DIET NPO [#[id number]] Priority: STAT Class: H ospital Performed Released on: 12/05/2019 2:41 PM [id number] SALINE LOCK IV [#[id number]] Priority: STAT Class: Hospital Performed Standing Order Information Remaining Occurrences:0 /1 Interval:ONE TIME Last released:12/05/2019 Released orders: SunDec 05, 2019 11:20 AM by: JULIO MANZO [id number] SALINE LOCK IV [#[id number]] Priority: STAT Cl ass: Hospital Performed Released on: 12/05/2019 11:20 AM [id number] METABOLIC PANEL, COMPREHENSIVE [# [id number]] Priority: STAT Class: ER Collect Standing Order Information Remaining Occurrences:0 /1 Interval:ONE TIME Last released:12/05/2019 Released orders: SunDec 05, 2019 11:20 AM by: JULIO MANZO [id number] CBC WITH AUTOMATED DIFF [#[id number]] Priority: STAT Cl ass: ER Collect Standing Order Information Remaining Occurrences:0/1 Interval:ONE TI ME Last released:12/05/2019 Released orders: SunDec 05, 2019 11:20 AM by: JULIO MANZO [id number] TROPONIN I [#[id number]] Priority: STAT Class: ER Collect Sta nding Order Information Remaining Occurrences:0/1 Interval:ONE TIME Last released:0 12/05/2019 Released orders: SunDec 05, 2019 11:20 AM by: JULIO MANZO [id number] MAGNESIUM [#[id number]] Priority: STAT Class: ER Collect Standing Order Information Remaining Occurrences:0/1 Interval:ONE TIME Last released:12/05/2019 Released orders : SunDec 05, 2019 11:20 AM by: JULIO MANZO [id number] LACTIC ACID [#[id number]] Priority: STAT Class: ER Collect Standing Order Information Remaining Occurrences:0/2 Interval:NOW THEN EVERY 4 HOURS Last released:12/05/2019 Released orders: SunDec 05, 2019 12:06 PM by: JULIO MANZO SunDec 05, 2019 11:20 AM by: JULIO MANZO [id number] PROTHROMBIN TIME + INR [#[id number]] Priority: STAT Class: ER Collect Standing Order Information Remain ing Occurrences:0/1 Interval:ONE TIME Last released:12/05/2019 Released orders : SunDec 05, 2019 11:20 AM by: JULIO MANZO [id number] URINALYSIS W/ RFLX MICROSCOPIC [# [id number]] Priority: STAT Class: ER Collect Standing Order Information Remaining Occurrences:0 /1 Interval:ONE TIME Last released:12/05/2019 Released orders: SunDec 05, 2019 11:20 AM by: JULIO MANZO [id number] METABOLIC PANEL, COMPREHENSIVE [#[id number]] Priority: STAT Cl ass: ER Collect Specimen Source: Plasma Specimen Collected: 12/05/2019 12:38 PM Resulting Agency: [facility] Test ID: MPL Released on: 12/05/2019 11:20 AM [id number] CBC WITH A UTOMATED DIFF [#[id number]] Priority: STAT Class: ER Collect Specimen Source: Whole Blood S pecimen Collected: 12/05/2019 12:38 PM Resulting Agency: [facility] Test ID: [id number] Released on: 12/05/2019 11:20 AM [id number] TROPONIN I [#[id number]] Prior ity: STAT Class: ER Collect Specimen Source: Plasma Specimen Collected: 12/05/2019 12:38 PM Resultin g Agency: [facility] Test ID: TROIP Released on: 12/05/2019 11:20 AM [id number] MAGNESIUM [#[id number]] Priority: STAT Class: ER Collect Specimen Source : Plasma Specimen Collected: 12/05/2019 12:38 PM Resulting Agency: [facility] Test ID: MGPL Released on: 12/05/2019 11:20 AM [id number] LACTIC ACID [#[id number]] P riority: STAT Class: ER Collect Specimen Source: Plasma Specimen Collected: 12/05/2019 12:40 PM Resultin g Agency: [facility] Test ID: LAC Released on: 12/05/2019 11:20 AM [id number] PROTHR OMBIN TIME + INR [#[id number]] Priority: STAT Class: ER Collect Specimen Source: Plasma Spe cimen Collected: 12/05/2019 12:38 PM Resulting Agency: [facility] Test ID: APTHR R eleased on: 12/05/2019 11:20 AM [id number] URINALYSIS W/ RFLX MICROSCOPIC [#[id number]] Prior ity: STAT Class: ER Collect Specimen Source: Urine Specimen Collected: 12/05/2019 2:45 PM Resultin g Agency: [facility] Test ID: UA Released on: 12/05/2019 11:20 AM [id number] LITHIU M [#[id number]] Priority: STAT Class: ER Collect Standing Order Information Remaining Occurrences:0/1 Interval:ONE TIME Last released:12/05/2019 Released orders : SunDec 05, 2019 11:40 AM by: MECHELLE GAMBLE [id number] LITHIUM [# [id number]] Priority: STAT Class: ER Collect Specimen Source: Serum Specimen Collected: 12/05/2019 12 :38 PM Resulting Agency: [facility] Test ID: LI Released on: 12/05/2019 11:40 AM [id number] LITHIUM [#[id number]] Canceled Priority: STAT Class: ER Collect Canceled by TENA, [facility] on SunDec 05, 2019 11:42 AM Reason: Other Comment: Duplicate Standing Order Information Remaining Occurrences:0/1 Interval:ONE TIME Last released:0 12/05/2019 Released orders: SunDec 05, 2019 11:41 AM by: JULIO MANZO [id number] LITHIUM [#[id number]] Canceled Priority: STAT Class: ER Collect Specimen Collected: 12/05/2019 11:45 AM Resulting Agency: [facility] Test ID: LI Canceled by TENA, [facility] on SunDec 05, 2019 11:42 AM Reason: Other Comment: Duplicate Rele ased on: 12/05/2019 11:41 AM [id number] LACTIC ACID [#[id number]] Priority: STAT Cl ass: ER Collect Resulting Agency: [facility] Test ID: LAC Released on: 12/05/2019 12:06 PM [id number] AMMONIA [#[id number]] Priority: Routine Class: ER Collect Specimen Source: Blood Standing Order Information Remaining Occurrences:0/1 Interval:ONE TI ME Last released:12/05/2019 Released orders: SunDec 05, 2019 3:19 PM by: Javier KHAN [id number] AMMONIA [#[id number]] Priority: STAT Class: ER Collect Spe cimen Source: Blood Resulting Agency: [facility] Test ID: [id number] Released on: 12/05/2019 3:19 PM [id number] BILIRUBIN, CONFIRM [#[id number]] Priority: Routine Class : ER Collect Resulting Agency: [facility] Test ID: ICTO Standing Order Informat ion Remaining Occurrences:0/1 Released orders: SunDec 05, 2019 2:45 PM by: Automatic B atch Process [id number] BILIRUBIN, CONFIRM [#[id number]] Priority: Routine Class : ER Collect Specimen Source: Miscellaneous sample Specimen Collected: 12/05/2019 2:45 PM Resultin g Agency: [facility] Test ID: ICTO Released on: 12/05/2019 2:45 PM [id number] EKG, 12 LEAD, INITIAL [#[id number]] Priority: STAT Class: Hospital Performed Stand ing Order Information Remaining Occurrences:0/1 Interval:ONE TIME Last released:0 12/05/2019 Released orders: SunDec 05, 2019 11:20 AM by: JULIO MANZO Reason for Exam: -> Chest Pain [id number] EKG, 12 LEAD, INITIAL [#[id number]] Priority: STAT Class: H ospital Performed Resulting Agency: [facility] Test ID: [id number] Reason for Exam: -> Chest Pain Releas ed on: 12/05/2019 11:20 AM [id number] XR CHEST PORT [#[id number]] Priority: STAT Clas s: Hospital Performed Standing Order Information Remaining Occurrences:0/1 Interval:ONE TI ME Last released:12/05/2019 Released orders: SunDec 05, 2019 11:20 AM by: JULIO MANZO Reason for Exam -> Chest Pain [id number] CT HEAD WO CONT [#[id number]] Priority: S TAT Class: Hospital Performed Standing Order Information Remaining Occurrences:0/1 Inter haile:ONE TIME Last released:12/05/2019 Released orders: SunDec 05, 2019 11:20 AM by: JULIO MANZO Reason for Exam -> ams [id number] XR PELV AP ONLY [#[id number]] Priority: S TAT Class: Hospital Performed Standing Order Information Remaining Occurrences:0/1 Inter haile:ONE TIME Last released:12/05/2019 Released orders: SunDec 05, 2019 11:20 AM by: JULIO MANZO Reason for Exam -> fall [id number] XR CHEST PORT [#[id number]] Priority: STAT Class: Hospital Performed Specimen Collected: 12/05/2019 12:21 PM Resulting Agency: [facility] Test ID: [id number] Reason for Exam -> Chest Pain Released on: 12/05/2019 11:[id number] HEAD WO CONT [#[id number]] Priority: STAT Class: Hospital Performed Specimen Collected : 12/05/2019 12:43 PM Resulting Agency: [facility] Test ID: [id number] Reason for Exam -> ams R eleased on: 12/05/2019 11:20 AM [id number] XR PELV AP ONLY [#[id number]] Priority: STAT Class: Hospital Performed Specimen Collected: 12/05/2019 12:23 PM Resulting Agency: [facility] Test ID : [id number] Reason for Exam -> fall Released on: 12/05/2019 11:20 AM [id number] MRI BRAIN WO CONT [#[id number]] Priority: STAT Class: Hospital Performed Standing Order Information Remaining Occurrences:0/1 Interval:ONE TIME Last released:12/05/2019 Released orders : SunDec 05, 2019 3:19 PM by: JOSE KHAN Reason for Exam -> ams [id number] MRI BRA IN WO CONT [#[id number]] Priority: STAT Class: Hospital Performed Specimen Collected : 12/05/2019 5:03 PM Resulting Agency: [facility] Test ID: [id number] Reason for Exam -> ams R eleased on: 12/05/2019 3:19 PM [id number] CULTURE, BLOOD [#[id number]] Priority: Routi ne Class: ER Collect Specimen Source: Blood Standing Order Information Remaining Occurrences:0 /1 Interval:ONE TIME Last released:12/05/2019 Released orders: SunDec 05, 2019 11:20 AM by: JULIO [id number] CULTURE, BLOOD [#[id number]] Priority: STAT Cl ass: ER Collect Specimen Source: Blood Standing Order Information Remaining Occurrences:0/1 I nterval:ONE TIME Last released:12/05/2019 Released orders: SunDec 05, 2019 11:20 AM by: JULIO MANZO [id number] CULTURE, BLOOD [#[id number]] Priority: STAT Class: E R Collect Specimen Source: Blood Specimen Collected: 12/05/2019 12:38 PM Resulting Agency: [facility] Test ID: HBCS Released on: 12/05/2019 11:20 AM [id number] CULTURE, BLOOD [#[id number]] Priority: STAT Class: ER Collect Specimen Source: Blood Specimen Collected: 12/04 12:30 PM Resulting Agency: [facility] Test ID: HBCS Released on: 12/05/2019 11:20 AM CEFTRIAXONE 1 GRAM IVPB MBP [#[id number]] Priority: STAT Class: Normal An tibiotic Indications -> Sepsis of Unknown Etiology SODIUM CHLORIDE 0.9 % IV [#[id number]] Priority: STAT Class: Normal SODIUM CHLORIDE 0.9 % IV [#[id number]] Priority : STAT Class: Normal ENOXAPARIN 40 MG/0.4 ML SUB-Q SYRINGE [#[id number]] Priority: STAT Class: N ormal ENOXAPARIN 40 MG/0.4 ML SUB-Q SYRINGE [#[id number]] Priority: STAT Class: Normal FUROSEMIDE 10 MG/ML IJ SOLN [#[id number]] Priority: STAT Class: Normal CON53 IP CONSULT TO PS YCHIATRY [#[id number]] Priority: STAT Class: Hospital Performed Standing Order Information Remaining Occurrences:0/1 Interval:ONE TIME Last released:12/05/2019 Released orders : SunDec 05, 2019 11:42 AM by: JULIO MANZO Reason for Consult: -> si Did you call or spea k to the consulting provider? -> No Consult To -> si CON53 IP CONSULT TO PSYCHIATRY [#[id number]] Priority: STAT Class: Hospital Performed Reason for Consult: -> si Did you call or spea k to the consulting provider? -> No Consult To -> si Released on: 12/05/2019 11:42 AM CON62 IP CON SULT TO INTERNAL MEDICINE [#[id number]] Priority: STAT Class: Hospital Performed Standing Order Inf ormation Remaining Occurrences:0/1 Interval:ONE TIME Last released:12/05/2019 Release d orders: SunDec 05, 2019 2:16 PM by: CARLA OTERO Reason for Consult: -> Altered mental st atus, Dr. Canas to admit Did you call or speak to the consulting provider? -> Yes CON62 IP CONSULT TO INTERNAL MEDICINE [#[id number]] Priority: STAT Class: Hospital Performed Reason for Consu lt: -> Altered mental status, Dr. Canas to admit Did you call or speak to the consulting provider? -> Yes Released on: 12/05/2019 2:16 PM CON53 IP CONSULT TO PSYCHIATRY [#[id number]] Priority: STAT Class: Hospital Performed Standing Order Information Remaining Occurrences:0 /1 Interval:ONE TIME Last released:12/05/2019 Released orders: SunDec 05, 2019 2:41 PM by: RITIKA CANAS Reason for Consult: -> adverse med reaction Did you call or speak to t he consulting provider? -> No Consult To -> Dr Aguirre Schedule When? -> TODAY CON9 IP CONSULT TO N EUROLOGY [#[id number]] Priority: STAT Class: Hospital Performed Standing Order Information Remaining Occurrences:0/1 Interval:ONE TIME Last released:12/05/2019 Released orders : SunDec 05, 2019 2:41 PM by: RITIKA CANAS Reason for Consult: -> encephalopathy adverse drug reaction Did you call or speak to the consulting provider? -> No Consult To -> Dr Jacob Schedule When? -> TODAY CON53 IP CONSULT TO PSYCHIATRY [#[id number]] Priority: STAT Class: H ospital Performed Reason for Consult: -> adverse med reaction Did you call or speak to the consulting provider? -> No Consult To -> Dr Aguirre Schedule When? -> TODAY Released on: 12/05/2019 2:41 P M CON9 IP CONSULT TO NEUROLOGY [#[id number]] Priority: STAT Class: Hospital Performe d Reason for Consult: -> encephalopathy adverse drug reaction Did you call or speak to the consulting provider? -> No Consult To -> Dr Jacob Schedule When? -> TODAY Released on: 12/05/2019 2:41 P M [id number] INITIAL PHYSICIAN ORDER: OBSERVATION* [#[id number]] Priority: Routine Class: ADT Pend Trans milvia Standing Order Information Remaining Occurrences:0/1 Interval:ONE TIME Last release d:12/05/2019 Released orders: SunDec 05, 2019 2:00 PM by: LUZ ELENA GATES Patient Class: -> OBS ERVATION Admitting Diagnosis -> Encephalopathy acute Admitting Physician -> CARLA OTERO Attending Physician -> CARLA OTERO [id number] INITIAL PHYSICIAN ORDER: OBSERVATION* [#[id number]] Priority: Routine Class: ADT Pend Transfer Patient Class: -> OBSERVATION Admitting Diagnosis -> Encephalopathy acute Admitting Physician -> CARLA OTERO Attending Physician -> CARLA OTERO Released on: 12/05/2019 2:00 PM [id number] INITIAL PHYSICIAN ORDER: INPATIENT [#[id number]] Bridgetteo saay: Routine Class: ADT Pend Transfer Standing Order [...] o- n- ) Admitting Diagnosis - > Hmi-jlax-dtftgjz adverse reaction to medication Admitting Physician -> RITIKA CANAS Physician -> RITIKA CANAS Estimated Length of Stay -> 5-7 Midnights Discharge Plan: -> Other (Specify) [id number] INITIAL PHYSICIAN ORDER: INPATIENT [#[id number]] Priority: Routine Class: ADT Pend Tr ansfer [...] i- o- n- ) Admitting Diagnosis -> Scr-wkuk-gvxzkcf adverse reaction to medication Admitting Physician -> RITIKA CANAS Attending Physician -> MARY CANAS Estimated Length of Stay -> 5-7 Midnights Discharge Plan: -> Other (Specify) [id number] [facility] PHYSICIAN ORDER: INPATIENT [#[id number]] Priority: Routine Class: ADT Pend Transfer Status: [...] i- o- n- ) Admitting Diagnosis -> Pqg-jyes-qnavkof adverse reaction to medication Admitting Physician -> RITIKA CANAS Attending Physician -> MARY CANAS Estimated Length of Stay -> 5-7 Midnights Discharge Plan: -> Other (Specify) Released on: 12/05/2019 2:41 PM [id number] INITIAL PHYSICIAN ORDER: INPATIENT [#[id number]] Priority: Routine Class : ADT Pend Transfer [...] o- n- ) Adm itting Diagnosis -> Nrc-hjfk-xbwthfp adverse reaction to medication Admitting Physician -> RITIKA CANAS Attending Physician -> RITIKA CANAS Estimated Length of Stay -> 5-7 Midnights Discharge Plan: -> Other (Specify) Released on: 12/05/2019 2:41 PM COD2 FULL CODE [#[id number]] Priority: STAT Class: Hospital Performed Standing Order Information Remaining Occurrences:0 /1 Interval:CONTINUOUS Last released:12/05/2019 Released orders: SunDec 05, 2019 2:41 PM by: RITIKA CANAS COD2 FULL CODE [#[id number]] Priority: STAT Cl ass: Hospital Performed Released on: 12/05/2019 2:41 PM [id number] EEG 12-26 HR W/VIDEO [# [id number]] Priority: Routine Class: Hospital Performed Standing Order Information Remaining Occurre nces:0/1 Interval:ONE TIME Last released:12/05/2019 Released orders: SunDec 04 3:19 PM by: JOSE KHAN Reason for Exam: -> ams [id number] EEG 12-26 HR W/VIDEO [#[id number]] Priority: STAT Class: Hospital Performed Resulting Agency: [facility] Test ID: [id number] Reason for Exam: -> ams Released on: 12/05/2019 3:19 JORDYMaxwell waddell MR#: [id number] * Rm: 441- 01Ht: 5' 5.75" Wt: 300 lb Code: Full Code Iso:Diagnosis:Encep halopathy acute [G93.40]Allergies: No Known Allergies -------- Current as of: 12/05/19 1807 NB=New Bag --aspirin (ASPIRIN) tablet 325 mg #[id number] Admin Amount: 1 Tab (1 x 325 mg Tab) Ordered Dose: 325 mg Route: Oral Freq: ONCE Start Date: 12/24/13 No administration times (back 96 hours, ahead 96 hours). ------diphenhydrAMINE (BENADRYL) capsule 50 mg #[id number] Admin Amount: 1 Cap (1 x 50 mg Cap) Ordered Dose: 50 mg Route: Ora l Freq: NOW Start Date: 12/24/13 No administration times (back 96 hours, ahe ad 96 hours). ------diazepam (VALIUM) tablet 5 mg #[id number] Admin Amount: 1 Tab (1 x 5 mg Tab) Ordered Dose: 5 mg Route: Oral Freq: ON CE Start Date: 12/24/13 No administration times (back 96 hours, ahead 96 hours). ------lidocaine (XYLOCAINE) 10 mg/mL (1 %) injection 1-30 mL #[id number] Admin Amount: 1-30 mL Ordered Dose: 1-30 mL Route: IntraDERMal Freq: ONCE Start Date: 12/24/13 No administration times (back 96 hours, ahead 96 hours). ------heparin (PF) 2 units/ml in NS infusion 2,000 Units #[id number] Admin Amount: 1,000 mL = 2,000 Units of 2 Units/mL Ordered Dose: 1,000 mL [place]: Irrigation Freq: ONCE Start Date: 12/24/13 No administration times (back 96 hours, ahead 96 hours). ------heparinized saline 2 units/mL infusion 1,000 Units #[id number] Admin Amount: 500 mL = 1,000 Units of 2 Units/mL Ordered Dose: 500 mL [place]: IntraarTERial Freq: ONCE Start Date: 12/24/13 No administration times (back 96 hours, ahead 96 hours). ------0.9% sodium chloride infusion #[id number] Ordered Dose: 75 mL/hr Route: IntraVENous Freq: CONTINUOUS Start Date: 12/24/13 Rate: 75 mL/hr Duration: No administration times (back 96 hours, ahead 96 hours). ------ioversol (OPTIRAY) 320 mg iodine/mL contrast injection 1-100 mL #[id number] Admin Amount: 1-100 mL Ordered Dose: 1-100 mL Route: IntraVENous Freq: RAD O NCE Start Date: 12/24/13 No administration times (back 96 hours, ahead 96 hours).Maxwell Bray MR#: [id number] * Rm: 441-01Ht: 5' 5.75" Wt: 300 lb Cod e: Full Code Iso:Diagnosis:Encephalopathy acute [G93.40]Allergies: No Known Allergies -------- Current as of: 12/05/19 1807 NB=New Bag --gadobutrol (GADAVIST) contrast solution 1-10 mL #[id number] Admin Amount: 1-10 mL Ordered Dose: 1-10 mL Route: IntraVENous Freq: RAD O NCE Start Date: 01/13/14 No administration times (back 96 hours, ahead 96 hours). ------sodium chloride (NS) flush 5-10 mL #[id number] Admin Amount: 5-10 mL Ordered Dose: 5-10 mL Route: IntraVENous Freq: RAD ONCE Start Date: 01/13/14 No administration times (back 96 hours, ahead 96 hours). ------sodium chloride (NS) 0.9 % flush #[id number] Ordered Dose: Route: Freq: Start Date: 01/13 No administration times (back 96 hours, ahead 96 hours). ------morphine injection 2 mg #[id number] Admin Amount: 1 mL = 2 mg of 2 mg/mL Ordered Dose: 2 mg Route: IntraVENous Freq: NOW Start Date: 03/13/15 No administration times (back 96 hours, ahe ad 96 hours). ------influenza vaccine (4 yr+)(PF) (FLUCELVAX QUAD) inj ection 0.5*#[id number] Admin Amount: 0.5 mL Ordered Dose: 0.5 mL Route: IntraMUSCular Freq: PRIOR TO DISCHARGE Start Date: 03/30/16 No administration times (back 96 hours, ahead 96 hours). ------oxyCODONE-acetaminophen (PERCOCET) 5-325 mg per tablet 1 Tab #[id number] Admin Amount: 1 Tab Ordered Dose: 1 Tab Route: Oral Freq: NOW Start Date: 09/07/17 No administration times (back 96 hours, ahead 96 hours). ------barium sulfate (READICAT) 2.1 % (w/v), 2.0 % (w /w) oral suspension 9*#[id number] Admin Amount: 900 mL Ordered Dose: 900 mL Route: Oral Delgado q: RAD ONCE Start Date: 10/15/17 No administration times (back 96 hours, ahead 96 hours). ------iopamidol (ISOVUE 300) 61 % contrast injection 100 mL #[id number] Admin Amount: 100 mL Ordered Dose: 100 mL Route: IntraVENous Freq: RAD ONC E Start Date: 10/15/17 No administration times (back 96 hours, ahead 96 hours).Maxwell Bray MR#: [id number] * Rm: 441-01Ht: 5' 5.75" Wt: 300 lb Code: Full Code Iso:Diagnosis:Encephalopathy acute [G93.40]Allergies: No Known Allergies -------- Current as of: 12/05/191806 NB=New Bag --risperiDONE (RisperDAL m-tabs) disintegrating tablet 1 mg #[id number] Admin Amount: 1 Tab (1 x 1 mg Tab) Ordered Dose: 1 mg Route: Oral Freq: ONCE Start Date: 12/24/17 No administration times (back 96 hours, ahead 96 hours). ------ALPRAZolam (XANAX) tablet 2 mg #[id number] Admin Amount: 4 Tab (4 x 0.5 mg Tab) Ordered Dose: 2 mg Route: Ora l Freq: NOW Start Date: 12/24/17 No administration times (back 96 hours, ahe ad 96 hours). ------lamoTRIgine (LaMICtal) tablet 100 mg #[id number] Admin Amount: 1 Tab (1 x 100 mg Tab) Ordered Dose: 100 mg Route: Oral Delgado q: ONCE Start Date: 12/24/17 No administration times (back 96 hours, ahead 96 hours). ------OLANZapine (ZyPREXA zydis) disintegrating tablet 5 mg #[id number] Admin Amount: 1 Tab (1 x 5 mg Tab) Ordered Dose: 5 mg Route: Oral Delgado q: ONCE Start Date: 12/25/17 No administration times (back 96 hours, ahead 96 hours). ------LORazepam (ATIVAN) tablet 2 mg #[id number] Admin Amount: 4 Tab (4 x 0.5 mg Tab) Ordered Dose: 2 mg Route: Ora l Freq: NOW Start Date: 12/25/17 No administration times (back 96 hours, ahe ad 96 hours). ------LORazepam (ATIVAN) injection 1 mg #[id number] Admin Amount: 0.5 mL = 1 mg of 2 mg/mL Ordered Dose: 1 mg Route: Int raVENous Freq: NOW Start Date: 12/25/17 No administration times (back 96 hours, ahe ad 96 hours). ------barium sulfate (EZ PAQUE) 96 % (w/w) contrast suspension 17 6 g #[id number] Admin Amount: 176 g Ordered Dose: 176 g Route: Oral Freq: RAD ONCE Start Date: 08/02/18 No administration times (back 96 hours, ahead 96 hours). ------barium sulfate (EZ PAQUE) 96 % (w/w) contrast s uspension 176 g #[id number] Admin Amount: 176 g Ordered Dose: 176 g Route: Oral Delgado q: RAD ONCE Start Date: 08/02/18 No administration times (back 96 hours, ahead 96 hours).Luisito donovanMaxwell MR#: [id number] * Rm: 441-01Ht: 5' 5.75" Wt: 300 lb Cod e: Full Code Iso:Diagnosis:Encephalopathy acute [G93.40]Allergies: No Known Allergies -------- Current as of: 12/05/191806 NB=New Bag --aspirin chewable tablet 162 mg #[id number] Admin Amount: 2 Tab (2 x 81 mg Tab) Ordered Dose: 162 mg Route: Oral Freq: NOW Start Date: 08/10/19 No administration times (back 96 hours, ahead 96 hours). ------0.9% sodium chloride infusion 1,000 mL #[id number] Admin Amount: 1,000 mL Ordered Dose: 1,000 mL Route: IntraVENous Freq: ONC E Start Date: 08/16/19 Rate: 1,000 mL/hr Duration: No administration ti mes (back 96 hours, ahead 96 hours). ------methylPREDNISolone (PF) (Solu-MEDROL) injection 125 mg #[id number] Admin Amount: 2 mL = 125 mg of 125 mg/2 mL Ordered Dose: 125 mg Route: Int raVENous Freq: NOW Start Date: 08/16/19 No administration times (back 96 hours, ahe ad 96 hours). ------aspirin chewable tablet 162 mg #[id number] Admin Amount: 2 Tab (2 x 81 mg Tab) Ordered Dose: 162 mg Route: Oral Delgado q: NOW Start Date: 08/16/19 No administration times (back 96 hours, ahead 96 hours). ------haloperidoL (HALDOL) tablet 5 mg #[id number] Admin Amount: 1 Tab (1 x 5 mg Tab) Ordered Dose: 5 mg Route: Oral Delgado q: ONCE Start Date: 10/30/19 No administration times (back 96 hours, ahead 96 hours). ------cefTRIAXone (ROCEPHIN) 1 g in 0.9% sodium chloride (MBP/ADV) 50 m L M*#[id number] Admin Amount: 1 g Ordered Dose: 1 g Route: IntraVENous Freq: NOW Start Date: 12/05/19 Rate: 100 mL/hr Duration: 30 Minutes Administration linda es (back 96 hours, ahead 96 hours): 12/05/19: 1428NB -----0.9% sodium chloride infusion #[id number] Ordered Dose: 125 mL/hr Route: IntraVENous Freq: CONTINUOUS Start Date: 12/05/19 Rate: 125 mL/hr Duration: Administration times (back 96 hours, ahead 96 hours): 12/05/19: 140Maxwell Correia MR#: [id number] * Rm : 441-01Ht: 5' 5.75" Wt: 300 lb Code: Full Code Iso:Diagnosis:Encephalopathy acute [G93. 40]Allergies: No Known Allergies -------- Current as of: 12/05/191806 NB=New Bag --enoxaparin (LOVENOX) injection 40 mg #[id number] Admin Amount: 0.4 mL = 40 mg of 40 mg/0.4 mL Ordered Dose: 40 mg [place]: SubCUTAneous Freq: EVERY 24 HOURS Start Date: 12/05/19 Administration times (back 96 h [facility] department, ahead 96 hours): 12/05/19: 209912/06/19: 209912/07/19: 209912/08/19: 2099 ---furosemide (LASIX) injection 20 mg #[id number] Admin Amount: 2 mL = 20 mg of 10 mg/mL Ordered Dose: 20 mg [place]: IntraVENous Freq: ONCE Start Date: 12/05/19 Administration [...] Inf ormationFollow-up With:Ritika Canas MDDetails:Comments:Contact Info:[address] [facility] [address] [facility] [phone] Name Value Range Interpretation Code Description Data Melani rce(s) Supporting Document(s ) ID Date Data Source [id number] 12/05/2019 04:36:09 PM EDT [facility] The history is provided by [...] of morbidity or mortality cardiac cath at [facility] approx 6-8 months ag o Other unknown [...] week Gets together: Once a week Attends bahai service: More than 4 times per year [...] yesIndependent visualization of images, tracings, or specimens: yesProceduresI, Mao, Julio, MD, reviewed the patient's past history, allergies and homemedications a s documented in the nursing chart.Labs:Recent Results (from the past 12 hour(s))EKG, 1 2 LEAD, INITIAL Collection Time: 12/05/19 11:41 AMResult Value Ref Range Ventricul ar Rate 102 BPM Atrial Rate 102 BPM P-R Interval 174 ms QRS Duration 104 ms Q-T Interval 395 ms QTC Calculation (Bezet) 515 ms Calculated P [place] 40 degrees Calculat ed R [place] 41 degrees Calculated T [place] 147 degrees Diagnosis Sinus tachycardiaProb able left [...] Time: 12/05/19 12:38 PMResult Value Ref Range Cesar Chavez level 1.53 (HH) 0.6 - 1.2 MMOL/LLACTIC ACID Collection Time: 12/04 12:40 PMResult Value Ref Range Lactic acid 1.1 0.4 - 2.0 MMOL/LEKG:Sinus tachy cardia at 100 BPM, normal axis, nothing acute.Interpreted by Julio Manzo MD11:2 0 AM quality assurance monitor final reading shows sinus tachycardia at 100 BPM. [...] cardiac monitoring, CXR, and head CT. Will cae engineer ocephin, IV fluids, and oxygen. Will consult [...] daily asneeded. Other, Phys, MDMaoJulio MD I, Joseph Silber, [...] Supporting Document(s ) ID Date Data Source [id number] 12/05/2019 04:05:06 PM EDT [facility] [address] [place] [address] [email or web address] CONSULT NOTEPatient: Maxwell Bray Se x: male [...] or sensory fuentes es. Lab significant of Cesar Chavez 1.53 and elevatedliver enzymes. Neurology consult ed for encephalopathy/drug adverse reaction.Past Medical History:Diagnosis Date Other unknown and unspecified cause of morbidity or mortality cardiac cath at [facility] approx 6-8 months ago Other unknown [...] QTC Calculation (Bezet) 515 ms Calculated P [place] 40 degrees Calculated R [place] 41 degrees Calculated T [place] 147 degrees Diagnosis Sinus tachycardiaProbable left atrial [...] Time: 12/05/19 12:38 PMResult Value Ref Range Cesar Chavez level 1.53 (HH) 0.6 - 1.2 MMOL/LLACTIC [...] were created on an independent workstation. Utilizing manu factureralgorithms the examination was performed to optimize [...] QTC Calculation (Bezet) 515 ms Calculated P [place] 40 degrees Calculat ed R [place] 41 degrees Calculated T [place] 147 degrees Diagnosis Sinus tachycardiaProb able left atrial enlargementAbnormal R-wave progression, early transitionNonspecific T abnormalities, lateral leadsProlonged QT intervalResults for orders placed or per formed in visit on 11/04/13AMB POC EKG ROUTINE W/ 12 LEADS, INTER & REP Impress ion EKG: sinus rhythm normal ECGAssessment:Patient Active Problem Lis tDiagnosis Code H/O gastric bypass Z98.84 Insomnia G47.00 Neuropathic pain of surekha adalberto M79.2 Seizure disorder (HCC) G40.909 Spells [id number] Severe obesity (HCC) E66 .01 Depression F32.9 Anxiety F41.9 Bipolar disorder (HCC) F31.9 Depressive disorde r F32.9 Status post gastric bypass for obesity Z98.84 Morbid obesity (HCC) E66 .01 Mixed anxiety and depressive disorder F41.8 Vitamin D deficiency E55.9 Bipol ar disorder with severe depression (HCC) F31.4 Encephalopathy acute G93.40 Adve rse drug reaction, initial encounter T50.905A Fbh-rteu-mughgqf adverse reaction to me dication T88.7XXA49 year old male with pmh as stated above and now with AMS and genera lizedweakness - most likely secondary to lithium toxicity - ? Seizure.Plan: Mri Brain Ammonia Monitor lithium level daily EEG - 24 hrs Seizure precautionsPaulson Gerald Flores 2019 3:19 [id number] Name Value Range Interpretation Code Description Data Melani rce(s) Supporting Document(s ) ID Date Data Source [id number] 12/05/2019 03:37:45 PM EDT [facility] sbar-q given to Ev berger to floor Name Value Range Interpretation Code Description Data Melani rce(s) Supporting Document(s ) ID Date Data Source [id number] 12/05/2019 03:29:57 PM EDT [facility] sbar-q given to Sheri UGALDE on floor Name Value Range Interpretation Code Description Data [facility] rce(s) Supporting Document(s ) ID Date Data Source [id number] 12/05/2019 03:28:02 PM EDT [facility] History & PhysicalBrian Anam Bray [...] h igh dose amytriptylene 200 mg nightly, Cesar Chavez, andVraylar 6 mg. :Cesar Chavez level on prior admission therapeutic. Patient's wifecontactedthis [...] of morbidity or mortality cardiac cath at [facility] approx 6-8 months ag o Other unknown [...] week Gets together: Once a week Attends bahai service: More than 4 times per year [...] mg tablet 200 mg. 11/12/19 Provider, Sneha ricalVraylar 3 mg capsule Take 6 mg by mouth nightly. Prescription is 6 mg capsuleInd ications: bipolar depression 09/03/19 Provider, Historicallithium carbonate 15 0 mg capsule Take 300 mg by mouth two (2) times daily (withmeals). Other, Phys, MDclonazePAM (KLONOPIN) 2 mg tablet Take 1 mg by mouth two (2) times daily asneeded . Other, Phys, Misti Known AllergiesReview of Systems : Unable to [...] Calculati on (Bezet) 515 ms Calculated P [place] 40 degrees Calculated R [place] 41 degrees Elena culated T [place] 147 degrees Diagnosis Sinus tachycardiaProbable left atrial [...] Time: 12/05/19 12:38 PMResult Value Ref Range Cesar Chavez level 1.53 (HH) 0.6 - 1.2 MMOL/LLACTIC ACID Collection Time: 12/04 12:40 PMResult Value Ref Range Lactic acid 1.1 0.4 - 2.0 MMOL/All lab results for the last 24 hours reviewed. Serun Cesar Chavez level toxicAssessment/PlanPrinci pal Problem: Adverse drug reaction, initial encounter (12/05/2019) LithiumActive Prob lems: Encephalopathy acute (12/05/2019) Lpt-oxsf-vgmligx adverse reaction to med ication (12/05/2019)Neuro, and psych evaluation, hydrationGeorge MD Missael Name Value Range Interpretation Code Description Data Melani rce(s) Supporting Document(s ) ID Date Data Source [id number] 12/06/2019 12:36:10 PM EDT [facility] Name Value Range Interpretation Description Data Sup porting Code Source(s) Document(s ) Service comment [facility] - [facility] Bacteria [facility] identified in Baptism Unspecified Hospital specimen by Culture ID Date Data Source [id number] 12/05/2019 04:18:26 PM EDT [facility] Name Value Range Interpretation Description Data Sup porting Code Source(s) Document(s ) Color of Urine YEL Abnormal (applies [facility] - to non-numeric Good results) [facility] Appearance of CLEAR Abnormal (applies [facility] - Urine to non-numeric Good results) [facility] Specific gravity 1.033 1.003-1. Above high normal [facility] - of Urine by 030 Good Refractometry [facility] pH of Urine by 5.5 4.6-8.0 [facility] - Test strip [facility] Protein 30 mg/dL NEG Abnormal (applies [facility] - [Mass/volume] in to non-numeric Good Urine by Test results) [facility] Glucose NEG [facility] - [Mass/volume] in Good Urine by Baptism Automated test Hospital strip Ketones 15 mg/dL NEG Abnormal (applies [facility] - [Presence] in to non-numeric Good Urine by results) [facility] Automated test [facility] strip Bilirubin.total NEG Abnormal (applies [facility] - [Presence] in to non-numeric Good Urine results) [facility] Hemoglobin NEG [facility] - [Presence] in Good Urine by Test [facility] Urobilinogen 1.0 0.2-1.0 [facility] - [Presence] in EU/dL Good Urine by Baptism Automated test [facility] strip Nitrite NEG [facility] - [Presence] in Good Urine by [facility] test [facility] strip Leukocyte NEG [facility] - esterase Good [Presence] in Baptism Urine by Hospital Automated test strip Leukocytes 0-5 [facility] - [Presence] in Good Urine sediment Baptism by [facility] microscopy Erythrocytes 0-2 [facility] - [#/area] in Good Urine sediment Baptism by [facility] high power field Epithelial cells 0-10 [facility] - [#/area] in Good Urine sediment Baptism by [facility] high power field Bacteria NONE Abnormal (applies [facility] - [Presence] in to non-numeric Good Urine sediment results) Baptism by [facility] microscopy ID Date Data Source [id number] 12/05/2019 03:26:35 PM EDT [facility] Name Value Range Interpretation Description Data Sup porting Code Source(s) Document(s ) Bilirubin NEG [facility] - Good [Presence] in Baptism Urine by Hospital Confirmatory method ID Date Data Source [id number] 12/05/2019 02:22:27 PM EDT [facility] I spoke to Dr. Canas regarding Observation Status. Dr. Canas said patient will bemade In Patient Status today. Name Value Range Interpretation Code Description Data Melani rce(s) Supporting Document(s ) ID Date Data Source [id number] 12/05/2019 02:03:27 PM EDT [facility] SW/Psych Screener attempted to meet with Pt for MH evaluation. Pt was foundlying on stretcher with his eyes open, staring at the wall. Electrolysist knows this Ptfrom previous admission to the medical floor. When ask ed if Pt rememberedwriter, Pt appeared confused, but said he did. Pt stated he fell today, doesn'tremember how he was brought to the hospital. Pt appeared to be searching for hiswords and was having difficulty speaking. Pt unclear of where he is, stating[place]" when asked where he was and "[place]" when asked what month it was. Whenasked if Pt was exhibiting any feelings of S/I, H/I or A/V Hallucinatio ns, Ptresponded with, "No," and confirmed he has been compliant with his psychiatricm edications. Electrolysist conferred with ER Attending, Dr. Manzo, who states that Ptwi ll most likely be medically admitted at this time.Krystina Centeno [facility] Name Value Range Interpretation Code Description Data Melani rce(s) Supporting Document(s ) ID Date Data Source [id number] 12/05/2019 12:53:37 PM EDT [facility] CT HEAD W/O CONTRASTPRIOR: Multiple: [...] Supporting Document(s ) ID Date Data Source [id number] 12/05/2019 01:31:37 PM EDT [facility] Name Value Range Interpretation Description Data Sup porting Code Source(s) Document(s ) Lactate 1.1 0.4-2.0 [facility] - Good [Moles/volu MMOL/L [facility]] in Hospital Serum or Plasma ID Date Data Source [id number] 12/10/2019 05:19:22 AM EDT [facility] Name Value Range Interpretation Description Data Sup porting Code Source(s) Document(s ) Service comment [facility] Bacteria [facility] identified in Baptism Unspecified Hospital specimen by Culture ID Date Data Source [id number] 12/05/2019 02:14:34 PM EDT [facility] Name Value Range Interpretation Description Data Sup porting Code Source(s) Document(s ) Cesar Chavez 1.53 0.6-1.2 Above upper panic [facility] - Good [Moles/volu MMOL/L limits [facility]] in Hospital Serum or Plasma CALLED TO AND READ BACK BYSUSI GAMBLE 1414 12/05/19 [facility] ID Date Data Source [id number] 12/05/2019 01:31:37 PM EDT [facility] Name Value Range Interpretation Description Data Sup porting Code Source(s) Document(s ) Troponin 0.00-0.05 [facility] - Good I.cardiac Baptism [Mass/volume Hospital ] in Serum or Plasma [...] to 1.50 ng/mL ID Date Data Source [id number] 12/05/2019 01:31:37 PM EDT [facility] - Good [facility] Name Value Range Interpretation Description Data Sup porting Code Source(s) Document(s ) Sodium 134 136-145 Below low normal [facility] - Good [Moles/volume] mmol/L [facility] in Serum or Hospital Plasma Potassium 3.5 3.5-5.1 [facility] - Good [Moles/volume] mmol/L [facility] in Serum or Hospital Plasma Chloride 104 98-107 [facility] - Good [Moles/volume] mmol/L [facility] in Serum or Hospital Plasma Carbon 26 21-32 [facility] - Good dioxide, total mmol/L [facility] [Moles/volume] Hospital in Serum or Plasma Anion gap in 7 mmol/L 10-20 Below low normal [facility] - Go od Serum or Baptism Plasma Hospital Glucose 127 74-106 Above high normal [facility] - Good [Mass/volume] mg/dL [facility] in Serum or Hospital Plasma Urea nitrogen 21 mg/dL 7-18 Above high normal [facility] - Good [Mass/volume] [facility] in Serum or Hospital Plasma Creatinine 0.94 0.70-1.3 [facility] - Good [Mass/volume] mg/dL 0 [facility] in Serum or Hospital Plasma Glomerular >60 [facility] - Good filtration Bapt[facility] rate/1.73 sq M Hospital predicted among blacks [Volume Rate/Area] in Serum or Plasma by Creatinine-bas ed formula (MDRD) Glomerular >60 [facility] - Good filtration Baptism rate/1.73 sq M Hospital predicted among non-blacks [Volume Rate/Area] in Serum or Plasma by Creatinine-bas ed formula (MDRD) (NOTE)Estimated GFR is calculated using the Modification of Diet in RenalDisease (MDRD) Study equation, reported for both Americans(GFRAA) and non- Americans (GFRNA), and normalized to 1.7 0a1jxmw surface area. The physician must decide which [...] normal [facility] - Good Serum or Plasma [facility] ital Bilirubin.total 0.9 mg/dL 0.2-1.0 [facility] - Good [Mass/volume] in Serum or [facility] Plasma Alanine aminotransferase 34 U/L 13-61 [facility] - Good [Enzymatic activity/volume] [facility] in Serum or Plasma Aspartate aminotransferase 47 U/L 15-37 Above high [facility] - Good [Enzymatic activity/volume] normal [facility] in Serum or Plasma by With P-5'-P Alkaline phosphatase 171 U/L 45-117 Above high [facility] - Good [Enzymatic activity/volume] normal [facility] in Serum or Plasma Protein [Mass/volume] in 7.5 g/dL 6.4-8.2 [facility] - Good Serum or Plasma [facility] ital Albumin [Mass/volume] in 3.8 g/dL 3.5-4.7 [facility] - Good Serum or Plasma by [facility] Bromocresol purple (BCP) dye binding method Globulin [Mass/volume] in 3.7 g/dL 1.7-4.7 [facility] - Good Serum by calculation [facility] Albumin/Globulin [Mass 1.0 0.7-2.8 [facility] - Good Ratio] in Serum or Plasma [facility] ID Date Data Source [id number] 12/05/2019 01:31:37 PM EDT [facility] - Good [facility] Name Value Range Interpretation Description Data Sup porting Code Source(s) Document(s ) Magnesium 2.9 mg/dL 1.6-2.6 Above high normal [facility] - Good [Mass/volume] [facility] in Serum or Hospital Plasma ID Date Data Source [id number] 12/05/2019 01:20:04 PM EDT [facility] - Good [facility] Name Value Range Interpretation Description Data Sup porting Code Source(s) Document(s ) Prothrombin 10.6 sec 9.4-11.1 [facility] - Good time (PT) [facility] INR in 1.0 0.8-1.2 [facility] - Good Platelet poor Baptism plasma by Hospital Coagulation assay ID Date Data Source [id number] 12/05/2019 01:07:21 PM EDT [facility] - [facility] Name Value Range Interpretation Description Data Sup porting Code Source(s) Document(s ) Leukocytes 12.4 4.8-10.6 Above high normal [facility] - [#/volume] in K/uL Good Blood by Baptism Automated count Hospital Erythrocytes 5.03 4.70-6.0 [facility] - [#/volume] in M/uL 0 Good Blood by [facility] Hemoglobin 15.4 14.0-18. [facility] - [Mass/volume] in g/dL 0 Good Blood [facility] Hematocrit 45.8 % 42.0-52. [facility] - [Volume 0 Good Fraction] of Baptism Blood by Hospital Automated count Erythrocyte mean 91.1 FL 81.0-94. [facility] - corpuscular 0 Good volume [Entitic Baptism volume] by [facility] Automated count Erythrocyte mean 30.6 PG 27.0-35. [facility] - corpuscular 0 Good hemoglobin Baptism [Entitic mass] [facility] by Automated count Erythrocyte mean 33.6 30.7-37. [facility] - corpuscular g/dL 3 Good hemoglobin [facility] [Mass/volume] by Automated count Erythrocyte 12.9 % 11.5-14. [facility] - distribution 0 Good width [Ratio] by Baptism Automated count [facility] Platelets 164 K/uL 130-400 [facility] - [#/volume] in Good Blood by Baptism Automated count [facility] Platelet mean 9.5 FL 9.2-11.8 [facility] - volume [Entitic Good volume] in Blood Baptism by Automated Hospital count Nucleated 0.0 PER 0 [facility] - erythrocytes/100 100 WBC Good leukocytes Baptism [Ratio] in Blood Hospital Nucleated 0.00 0.0-0.01 [facility] - erythrocytes K/uL Good [#/volume] in Baptism [facility] Segmented 80 % 48.0-72. Above high normal [facility] - neutrophils/100 0 [facility] leukocytes in [facility] Lymphocytes/100 8 % 18.0-40. Below low normal [facility] - leukocytes in 0 [facility] Monocytes/100 10 % 2.0-12.0 [facility] - leukocytes in [facility] Eosinophils/100 1 % 0.0-7.0 [facility] - leukocytes in [facility] Basophils/100 0 % 0.0-3.0 [facility] - leukocytes in [facility] Immature 0 % 0-0.5 [facility] - granulocytes/100 Good leukocytes in [facility] Automated count Segmented 10.0 2.3-7.6 Above high normal [facility] - neutrophils K/UL Good [#/volume] in [facility] Lymphocytes 1.0 K/UL 0.9-4.2 [facility] - [#/volume] in [facility] Monocytes 1.2 K/UL 0.1-1.7 [facility] - [#/volume] in [facility] Eosinophils 0.1 K/UL 0.0-1.0 [facility] - [#/volume] in [facility] Basophils 0.0 K/UL 0.0-0.4 [facility] - [#/volume] in [facility] Immature 0.1 K/UL 0.0-0.17 [facility] - granulocytes Good [#/volume] in [facility] Automated count Differential [facility] - cell count [facility] ID Date Data Source [id number] 12/10/2019 05:19:23 AM EDT [facility] Name Value Range Interpretation Description Data Sup porting Code Source(s) Document(s ) Service comment [facility] - [facility] Bacteria [facility] identified in Baptism Unspecified Hospital specimen by Culture ID Date Data Source [id number] 12/05/2019 12:24:35 PM EDT [facility] - [facility] PELVIS one view.History: TraumaThe study is suboptimal due to the patient's body habitus.There is no evidence of fracture , dislocation, subluxation, bone erosion orarthritis.IMPRESSION: Grossly normal s tudy. Signing date/time: 12/05/2019 12:24 PMSigned by: CURTIS VARMA Name Value Range Interpretation Code Description Data Melani rce(s) Supporting Document(s ) ID Date Data Source [id number] 12/05/2019 12:23:11 PM EDT [facility] CHEST 1 view (s)HISTORY: Chest [...] Supporting Document(s ) ID Date Data Source [id number] 12/05/2019 11:34:39 AM EDT [facility] BIBA for fall in the middle of the night while going to bathroomC/p left hip pain Name Value Range Interpretation Code Description Data Melani rce(s) Supporting Document(s ) ID Date Data Source [id number] 12/05/2019 11:21:27 AM EDT [facility] Please enter the current weight for this patient in [facility]. Thank you. Name Value Range Interpretation Code Description Data Melani rce(s) Supporting Document(s ) ID Date Data Source [id number] 11/23/2019 02:02:47 PM EDT [facility] Discharge SummaryPatient: Maxwell Mendieta Xiao e Sex: [...] E66.01ICD-9-CM: 278.01 07/19/2018 - Present Spells ICD-10-CM: [id number]: IMO00 01 04/08/2016 - Present Seizure disorder [...] was reported to out of work since Junarian constantino to his symptoms of depression. Studies in the ED and subsequently provednegativ e for infectious basis for his presenting symptoms. Psyciatricconsultation was obt ained with decision to current psych outpatient medsunchanged. Patient was tr eated with parenteral hydration with benefit u4rinnytabprntlzhld responses. Of note i s fact that patient was scheduled to begin ECTtreatment for depression when Covid 1 9 pandemic curtained this plan.Consults: PsychiatrySignificant Diagnostic Studies : labs: microbiology: , radiology: and cardiacgraphics:Discharge Medications: @DISCHARGEMEDLIST@Activity: Activity as toleratedDiet: Resume previous dietWound Care: None neededFollow-up: This examiner to follow in officeRitika Canas MD Name Value Range Interpretation Code Description Data [facility](s) Supporting Document(s ) ID Date Data Source [id number] 11/03/2019 09:41:35 PM EDT [facility] Verbal shift change report given to , RN (oncoming nurse) by Scott Beverly RN (offgoing nurse). Report included the fo llowing information SBAR, Kardex,Intake/Output, MAR and Recent Res ults. Name Value Range Interpretation Code Description Data [facility](s) Supporting Document(s ) ID Date Data Source [id number] 11/03/2019 03:34:07 PM EDT [facility] Per psych note, CM to confirm patient ap pt with psychiatristCall to Dr Mateo Méndez office # [phone], office closedPati ent aware of # to call to make his own appt, [facility] states his will be coming this evening to drive him homeCare Management InterventionsPCP Verified by CM: YesPalliative Care Criteria Met (RRAT>21 & CHF Dx)?: NoMode of Transport at Discharge: Other (see comment)( yanni maciel between approx5-6)Transition of Care Consult (CM Consult): Discharge Planning Physical Therapy Consult: NoOccupational Therapy Consult: NoSpeech Therapy Consul t: NoCurrent Support Network: Lives with Spouse, Own Home( [place] [phone])Confirm Follow Up Transport: FamilyThe Patient and/or Patient [...] Supporting Document(s ) ID Date Data Source [id number] 11/03/2019 02:45:48 PM EDT [facility] PHYSICAL THERAPY TREATMENTPatient: Maxwell Bray [...] Supporting Document(s ) ID Date Data Source [id number] 11/03/2019 01:09:08 PM EDT [facility] - [facility] General Daily Progress NoteAdmit Date: Hospital day: [...] past 8 hrs: BP Temp Pulse Resp AtZ89711/03/19 0752 115 /76 97.6 F (36.4 C) [...] Name Value Range Interpretation Code Description Data [facility]) Supporting Document(s ) ID Date Data Source [id number] 11/03/2019 10:52:30 AM EDT [facility] S/O patient has seen for follow up via V ideo . He is doing much better. Hedenies any auditory or visual hallucination any mor eHe has no suicidal or homicidal thoughtsHe reports that he sees Dr. marie every ot her weeksPt wants to follow up with Dr. Marie after dischargePlan continue on a ll current psychotropic medications Requesting case briefer to confirm his a ppointment with Dr. mariebefore he discharged Please re consult if n eeded Name Value Range Interpretation Code Description Data Melani rce(s) Supporting Document(s ) ID Date Data Source [id number] 11/03/2019 07:12:34 AM EDT [facility] Bedside and Verbal shift change report g iven to Meño Rose, RN (oncomingnurse) by June Ochoa, SUSI (offgoing nurse). Repor t included the followinginformation SBAR, Kardex, Intake/Output, MAR, Recent Resul ts and Med Rec Status. Name Value Range Interpretation Code Description Data Melani rce(s) Supporting Document(s ) ID Date Data Source [id number] 11/02/2019 11:18:25 PM EDT [facility] Problem: Falls - Risk ofGoal: [...] Supporting Document(s ) ID Date Data Source [id number] 11/02/2019 07:34:02 PM EDT [facility] Bedside shift change report given to GILLIAN KEATING (oncoming nurse) by Meño Rose(offgoing nurse). Report included the following information SBAR, Kardex andIntake/Output. Name Value Range Interpretation Code Description Data [facility] rce(s) Supporting Document(s ) ID Date Data Source [id number] 11/02/2019 05:14:50 PM EDT [facility] Telehealth Progress NotePursuant to the emergency declaration [...] [] Telephone [x] VideoconferenceDate: 11/02/2019Account Franny mber: [id number]: Maxwell Robin & Joe PROGRESS NOTE:Coordinated treatment team rounds conducted with psychiatrist, patient, nursesand/or social media intern present ; dis cussions held with case briefer and/or familymembers; Chart reviewed in full in cluding financial planning consultant notes, ancillary staffnotes, vitals and labs in [facility] EMR reviewed in full.SUBJECTIVE: Pt seen for first time on Video with my SW Mendy And RN , hereports less hallucinations , as they are still there in the morning But overall better since got back on vraylar told me was scheduled for ECT at [facility] but due to elective , it [...] past 8 hrs: Temp Pulse Resp BP BiD546/20 1546 98.3 F (36.8 C) 84 18 [...] (LOVENOX) injection 40 mg 40 mg SubCUTAneous [id number] Medications:C urrent Facility-Administered MedicationsMedication Dose Route Frequen [...] ENOX) injection 40 mg 40 mg SubCUTAneous [id number]/PLAN:Continue current kalie atment as pt is stabalizingPatient [...] Supporting Document(s ) ID Date Data Source [id number] 11/02/2019 03:02:33 PM EDT [facility] - [facility] General Daily Progress NoteAdmit Date: Hospital day: [...] (LOVENOX) injection 40 mg 40 mg SubCUTAneous [id number]:Patient Vitals for the past 8 hrs: BP Temp Pulse Resp S pO2/04/13 0748 120/85 98.2 F (36.8 C) 75 [...] contrast. Sagittal and coronal reconstruction was performed.Uti lizing dry pan feeder algorithm the examination was performed to optimizeimaging [...] Name Value Range Interpretation Code Description Data [facility]) Supporting Document(s ) ID Date Data Source [id number] 11/02/2019 07:48:14 AM EDT [facility] Verbal shift change report given to Jody wells RN (oncoming nurse) by Juliane UGALDE (offgoing nurse). Report included the following information SBAR,Kardex, Intake/Output, MAR and Recent Results Name Value Range Interpretation Code Description Data [facility]) Supporting Document(s ) ID Date Data Source [id number] 11/02/2019 05:41:52 AM EDT [facility] Patient AOX3 with periodic confusion. [...] Supporting Document(s ) ID Date Data Source [id number] 11/01/2019 08:46:30 PM EDT [facility] Problem: Falls - Risk ofGoal: [...] Supporting Document(s ) ID Date Data Source [id number] 11/01/2019 08:00:09 PM EDT [facility] Verbal shift change report given to Ly vitale RN (oncoming nurse) by SUSI Palacio (offgoing nurse). Report included the following information SBAR,Intake/Output, MAR and Recent Results. Name Value Range Interpretation Code Description Data [facility]) Supporting Document(s ) ID Date Data Source [id number] 11/01/2019 03:49:42 PM EDT [facility] Adult Progress NoteDate: 11/01/2019Account Number: [id number]: Maxwell Mendieta TrimbleDiagnosis: History of mood and [...] On e Bipolar disorder with severe depression ([facility]) 10/29/2019 Mixed anxiety and depr essive disorder 09/04/2019 Vitamin D deficiency 09/04/2019 Anxiety 0 Bipolar disorder ([facility]) 07/21/2019 Depressive disorder 07/21/2019 Status p ost gastric bypass for obesity 07/21/2019 Morbid obesity ([facility]) 07/21/2019 Severe obesity ([facility]) 07/19/2018 Spells 04/08/2016 Seizure disorder (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 [...] (LOVENOX) injection 40 mg 40 mg SubCUTAneous [id number] following information was reviewed and discussed: Patient [...] Supporting Document(s ) ID Date Data Source [id number] 11/01/2019 02:42:08 PM EDT [facility] - [facility] General Daily Progress NoteAdmit Date: Hospital day: [...] past 8 hrs: BP Temp Pulse Resp OkY858/03/14 0715 101/67 98 F (36.7 C) 70 [...] Sagittal and coronal reconstr uction was performed.Utilizing dry pan feeder algorithm the examination was performed to optimizeimaging [...] Prominent interstitial markings arefelt to reflect vascular microstrategy developer 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 Repeat PA andlateral views the chest are advised i f there is clinical concern for pneumoniaor congestive failure.Assessment:Active Pro blems: Bipolar disorder with severe depression (HCC) (10/29/2019)Plan:Improvin g status Name Value Range Interpretation Code Description Data [facility]) Supporting Document(s ) ID Date Data Source [id number] 11/01/2019 07:08:12 AM EDT [facility] Verbal shift change report given to Chandrakant Albert RN (oncoming nurse) byMelanie Hoffmann RN (offgoing nurse). Report incl uded the following informationSBAR, Kardex, Intake/Output, MAR and Recent Results. Name Value Range Interpretation Code Description Data [facility] Supporting Document(s ) ID Date Data Source [id number] 10/31/2019 07:59:03 PM EDT [facility] Verbal shift change report given to Shreya adrian RN (oncoming nurse) by SUSI Palacio (offgoing nurse). Report included the following information SBAR,Kardex, Intake/Output, MAR and Recent Results. Name Value Range Interpretation Code Description Data [facility] Supporting Document(s ) ID Date Data Source [id number] 10/31/2019 05:09:32 PM EDT [facility] Telehealth ConsultationPursuant to the e [...] [] Telephone [x] VideoconferenceSubjective:Patient: Maxwell BrayMRN #: [id number]: [id number]: 49 y.o. Sex: maleAdm it Date: 10/29/2019Attending: Ritika Canas, ELIZABETHate of Evaluation: 10/31/2019Reason fo r Referral: Maxwell [...] week Gets together: Once a week Attends bahai service: More than 4 times per year [...] morbidity or mortal ity cardiac cath at [facility] approx 6-8 months ago Other unknown and [...] past 8 hrs: BP Temp Pulse Resp YoY31210/31/19 0754 120/60 97.2 F (36.2 C) 70 20 95 %MENTA L STATUS EXAM:FINDINGS WITHIN NORMAL LIMITS (WNL) UNLESS OTHERWISE STATED BELOW:Sens orium IRXQ6Ohkgokouc Well relatedAppearance: OverweightMotor Behavior: Not examined Speech: [...] Supporting Document(s ) ID Date Data Source [id number] 10/31/2019 04:37:18 PM EDT [facility] [place] [address] [place], [place] [address]MQESJXG: MAXWELL BRAYMRN: [id number]: [id number]#: [id number] DATE: 10/29/2019 CONSULTATIONHISTORY OF PRESENT ILLNESS: The [...] and Klonopin.PAST MEDICAL HISTORY: Cardiac cath at [facility] six to eight months ago, concussions,periodic disorientation, [...] a smoker.FAMILY HISTORY: Positive for diabetes in radha r, as well as heart disease inmother.MENTAL [...] [facility]Cognitively,he seems to be fair. His memory to [...] RONAL AGUIRRE MDDD: 10/30/2019 14:44:41/BR /[id number] / [id number] Name Value Range Interpretation Code Description Data [facility] rce(s) Supporting Document(s ) ID Date Data Source [id number] 10/31/2019 01:47:36 PM EDT [facility] - [facility] General Daily Progress NoteAdmit Date: Hospital day: [...] Supporting Document(s ) ID Date Data Source [id number] 10/31/2019 12:59:26 PM EDT [facility] - [facility] physical Therapy TREATMENTPatient: Maxwell Bray (49 y.o. [...] of care was discussed wit h: Registered NurseBest Enrique, PT,DPT Time Calculation: 24 mins Name Value Range Interpretation Code Description Data [facility] rce(s) Supporting Document(s ) ID Date Data Source [id number] 10/31/2019 07:10:46 AM EDT [facility] Bedside and Verbal shift change report g iven to Samy UGALDE (oncoming nurse)by Cristofer Valenzuela RN (offgoing nurse). Repo rt included the following information SBAR, Kardex, MARand Recent Results. Name Value Range Interpretation Code Description Data [facility] rce(s) Supporting Document(s ) ID Date Data Source [id number] 10/30/2019 11:27:14 PM EDT [facility] Problem: Falls - Risk ofGoal: [...] Name Value Range Interpretation Code Description [facility]s ) ID Date Data Source [id number] 10/30/2019 08:09:55 PM EDT [facility] Susi Garcia called as pt has been [...] be ordered as non formulary also At [facility] Name Value Range Interpretation Code Description Data [facility] rce(s) Supporting Document(s ) ID Date Data Source [id number] 10/30/2019 08:06:30 PM EDT [facility] Telephoned Dr. Oc tompkins pt's c/o new sy mptoms of hallucinations. Orderedreceived, relayed to RN, SUSI Marroquin on rent control office manager Name Value Range Interpretation Code Description Data [facility] rce(s) Supporting Document(s ) ID Date Data Source [id number] 10/30/2019 08:01:35 PM EDT [facility] Verbal shift change report given to Cecilia wells (oncoming nurse) by Samy Albert RN (offgoing nurse). Report included the fo llowing information SBAR, ProcedureSummary, Intake/Output, MAR and Recent Results. Name Value Range Interpretation Code Description Data [facility] rce(s) Supporting Document(s ) ID Date Data Source [id number] 10/30/2019 02:58:51 PM EDT [facility] Problem: Mobility Impaired (Adult and [...] of morbidity or mortality cardiac cath at [facility] approx 6-8 months ago Other unknown [...] Home: NoneCritical Behavior:Neurologic State: AlertOrientation Level: Oriented I0Ojrwxrumw: Appropriate for age attention/concentrationSafety/Judgement: Awareness of environmentSkin:Strength:Strength: [...] and plan of care.Comments:Thank you for this natasha Enrqiue, PT,DPT Time Calculation: 19 mins Name Value Range Interpretation Code Description Data Melani rce(s) Supporting Document(s ) ID Date Data Source [id number] 10/30/2019 02:50:37 PM EDT [facility] Telehealth ConsultationPursuant to the e [...] [] Telephone [] VideoconferenceSubjective:Patient: Maxwell BrayMRN #: [id number]: [id number]: 49 y.o. Sex: maleAdm it Date: 10/29/2019Attending: [...] Supporting Document(s ) ID Date Data Source [id number] 10/30/2019 02:06:26 PM EDT [facility] Care Management InterventionsPCP Verifie d by CM: YesPalliative Care Criteria Met (RRAT>21 & CHF Dx)?: NoMode of Transport at Discharge: Other (see comment)(family)Transition of Care Consu lt (CM Consult): Discharge PlanningPhysical Therapy Consult: NoOccupational Therapy Consult: NoSpeech Therapy Consult: NoCurrent Support Network: Lives with Spouse, Own Home( [place] [phone],d-[phone])Confirm Foll ow Up Transport: FamilyThe Patient and/or Patient Child Protective Investigator was Provided with a Choice of Providerand [...] home with his , 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 Patient normally works (pre-covid) and drives. CM dept roleexplained, patient is currently denying any HC or rehab needs and states hiswife will drive him home upon DC. PT eval is ordered and pending. CM dept laila lfollow if patient has any PT needs.CASE MANAGEMENT PSYCHOSOCIAL ASSESSMENTMaxwell Brya Admission Date: 10/29/2019MRN: [id number] of : 1970Current date: 10/30/2019DISCHARGE PLAN: homePatient Info rmation:Patients Preferred Name: Tim Arrived Via: StretcherTransferred from a nother facility: NoInformation Obtained From: PatientPatient Objects to Receiving Bloo d: NoMRSA Assessment: Not applicableAuditory Impairment: NoneRetired Read Only-Readmi t Risk ToolSupport Systems: Family member(s)History of Falls Within Past 3 Months: NoNeeds Assistance with Wound Care AND/OR Mgnt of O2, Nebulizer: NoRequires Financial, Physical and/or Educational Assistance With Medications: NoHistory o f Mental Illness: NoLiving Alone: NoPCP: Ritika Canas MDAdmitting Provider: Cristi Canas MDINOVA FAIRFA[facility] INCHOMEC[facility] PIPE FITTER SUPERVISOR: naPayor: Payor: [facility]ALTH [facility]AN / Plan: [facility] PLAN /Product Type: HMO /[employer] Payrollo ndary Payor: @[employer]elsGROUPNAME@Bipolar disorder with severe depression (HCC) [F 31.4]Bipolar disorder with severe depression (HCC) [F31.4]Patient Active Problem List Diagnosis Code H/O gastric bypass Z98.84 Insomnia G47.00 Neuropathic pain of surekha ulder M79.2 Seizure disorder ([facility]) G40.909 Spells R68.89 Severe obesity (HCC) E66. [...] Intoxication: NoHallucinations/Delusions: NoPending, A ctive, or Temporary Usp Orders: NoAggressive/Inappropriate Behavior: NoR eadmit Risk:Support Systems: Family member(s)Advanced Care Planning:Confirm Advance Directive: NoneDiscussed with the patient and all questions fully answered . He will call me ifany problems arise. Name Value Range Interpretation Code Description Data Melani rce(s) Supporting Document(s ) ID Date Data Source [id number] 10/30/2019 12:38:13 PM EDT [facility] General Daily Progress NoteAdmit Date: Hospital day: .tdSubjective:Patient markedly improved this am, speech now no rmal. Denies possibleinadvertent overdose of chronic meds. Accepting of psych consult . PT toevaluate. Claims symptoms of mild nausea. Meds reviewed claims to be takin gElavil G 150 mg HS ,Klonopin 1 mg twice a day, Cesar Chavez 300 twice daily, Vraylar3 m g dailyCurrent [...] past 8 hrs: BP Temp Pulse Resp FrF69610/30/19 0727 (!) 130/96 98 F (36.7 C) [...] Supporting Document(s ) ID Date Data Source [id number] 10/30/2019 07:52:05 AM EDT [facility] Verbal shift change report given to Chandrakant rosa RN (oncoming nurse) Tavares UGALDE (offgoing nurse). Report included the fo llowing information SBAR,Kardex, Procedure Summary, Intake/Output, MAR and Recent R esults. Name Value Range Interpretation Code Description Data Melani rce(s) Supporting Document(s ) ID Date Data Source [id number] 10/30/2019 06:40:05 AM EDT [facility] Pt. AOX3, periodic confusion. Commode an d urinal at bedside. Seizure and fallprecaution measures in place. Voice s no complaint during shift . Name Value Range Interpretation Code Description Data Melani rce(s) Supporting Document(s ) ID Date Data Source [id number] 10/30/2019 07:29:12 AM EDT [facility] Name Value Range Interpretation Description Data Sup porting Code Source(s) Document(s ) Sodium 139 136-145 [facility] - Good [Moles/volume] mmol/L [facility] in Serum or Hospital Plasma Potassium 3.6 3.5-5.1 [facility] [Moles/volume] mmol/L [facility] in Serum or Hospital Plasma Chloride 110 98-107 Above high normal [facility] [Moles/volume] mmol/L [facility] in Serum or Hospital Plasma Carbon 24 21-32 [facility] - Good dioxide, total mmol/L [facility] [Moles/volume] Hospital in Serum or Plasma Anion gap in 9 mmol/L 10-20 Below low normal [facility] - Go od Serum or [facility] Plasma Hospital Glucose 96 mg/dL 74-106 [facility] [Mass/volume] [facility] in Serum or Hospital Plasma Urea nitrogen 10 mg/dL 7-18 [facility] - [facility] [Mass/volume] [facility] in Serum or Hospital Plasma Creatinine 0.81 0.70-1.3 [facility] [Mass/volume] mg/dL 0 [facility] in Serum or Hospital Plasma Glomerular >60 [facility] - Good filtration [facility] rate/1.73 sq M Hospital predicted among blacks [Volume Rate/Area] in Serum or Plasma by Creatinine-bas ed formula (MDRD) Glomerular >60 [facility] - Good filtration [facility] rate/1.73 sq M Hospital predicted among non-blacks [Volume Rate/Area] in Serum or Plasma by Creatinine-bas ed formula (MDRD) Calcium 8.2 8.5-10.1 Below low normal [facility] - Good [Mass/volume] mg/dL [facility] in Serum or Hospital Plasma ID Date Data Source [id number] 10/30/2019 07:05:07 AM EDT [facility] Good [facility] Name Value Range Interpretation Description Data Sup porting Code Source(s) Document(s ) Leukocytes 4.8 K/uL 4.8-10.6 [facility] - [#/volume] in Good Blood by Baptism Automated count [facility] Erythrocytes 4.59 4.70-6.0 Below low normal [facility] - [#/volume] in M/uL 0 Good Blood by Baptism Automated count [facility] Hemoglobin 14.0 14.0-18. [facility] - [Mass/volume] in g/dL 0 Good Blood [facility] Hematocrit 42.7 % 42.0-52. [facility] - [Volume 0 Good Fraction] of [facility] Blood by Hospital Automated count Erythrocyte mean 93.0 FL 81.0-94. [facility] - corpuscular 0 Good volume [Entitic [facility] volume] by Hospital Automated count Erythrocyte mean 30.5 PG 27.0-35. [facility] - corpuscular 0 Good hemoglobin [facility] [Entitic mass] Hospital by Automated count Erythrocyte mean 32.8 30.7-37. [facility] - corpuscular g/dL 3 Good hemoglobin [facility] [Mass/volume] by Automated count Erythrocyte 13.3 % 11.5-14. [facility] - distribution 0 Good width [Ratio] by Baptism Automated count [facility] Platelets 159 K/uL 130-400 [facility] - [#/volume] in Good Blood by [facility] Platelet mean 8.6 FL 9.2-11.8 Below low normal [facility] - volume [Entitic Good volume] in Blood [facility] by Automated Hospital count Nucleated 0.0 PER 0 [facility] - erythrocytes/100 100 WBC Good leukocytes [facility] [Ratio] in Blood Hospital Nucleated 0.00 0.0-0.01 [facility] - erythrocytes K/uL Good [#/volume] in [facility] Segmented 54 % 48.0-72. [facility] - neutrophils/100 0 Good leukocytes in [facility] Lymphocytes/100 32 % 18.0-40. [facility] - leukocytes in 0 [facility] Monocytes/100 9 % 2.0-12.0 [facility] - leukocytes in [facility] Eosinophils/100 5 % 0.0-7.0 [facility] - leukocytes in [facility] Basophils/100 1 % 0.0-3.0 [facility] - leukocytes in [facility] Immature 0 % 0-0.5 [facility] - granulocytes/100 Good leukocytes in [facility] by Hospital Automated count Segmented 2.6 K/UL 2.3-7.6 [facility] - neutrophils Good [#/volume] in [facility] Lymphocytes 1.5 K/UL 0.9-4.2 [facility] - [#/volume] in [facility] Monocytes 0.4 K/UL 0.1-1.7 [facility] - [#/volume] in [facility] Eosinophils 0.2 K/UL 0.0-1.0 [facility] - [#/volume] in [facility] Basophils 0.0 K/UL 0.0-0.4 [facility] - [#/volume] in [facility] Immature 0.0 K/UL 0.0-0.17 [facility] - granulocytes Good [#/volume] in [facility] by Hospital Automated count Differential [facility] - cell count Good method [facility] ID Date Data Source [id number] 10/29/2019 07:40:21 PM EDT [facility] - [facility] Verbal shift change report given to Wai rogers RN(oncoming nurse) by Elizabeth Meehan RN (offgoing nurse). Report included the fo llowing information SBAR, Kardex, EDSummary, Intake/Output, MAR and Recent Results. Name Value Range Interpretation Code Description Data Melani rce(s) Supporting Document(s ) ID Date Data Source [id number] 10/30/2019 06:54:22 PM EDT [facility] Name Value Range Interpretation Description Data Sup porting Code Source(s) Document(s ) Color of Urine [facility] - [facility] Appearance of CLEAR [facility] - Urine [facility] Specific gravity 1.015 1.003-1. [facility] - of Urine by 030 Good Refractometry [facility] pH of Urine by 6.0 4.6-8.0 [facility] - Test strip [facility] Protein NEG [facility] - [Mass/volume] in Good Urine by Test [facility] Glucose NEG [facility] - [Mass/volume] in Good Urine by Baptism Automated test Hospital strip Ketones NEG [facility] - [Presence] in Good Urine by [facility] Automated test [facility] strip Bilirubin.total NEG [facility] - [Presence] in Good Urine [facility] Hemoglobin NEG [facility] - [Presence] in Good Urine by Test [facility] Urobilinogen 1.0 0.2-1.0 [facility] - [Presence] in EU/dL Good Urine by Bapt[facility] Automated test Hospital strip Nitrite NEG [facility] - [Presence] in Good Urine by [facility] Automated test Hospital strip Leukocyte NEG [facility] - esterase Good [Presence] in Baptism Urine by Hospital Automated test strip ID Date Data Source [id number] 10/29/2019 06:14:12 PM EDT [facility] Spoke with to clarify meds..correct doses obtained Name Value Range Interpretation Code Description Data Melani rce(s) Supporting Document(s ) ID Date Data Source [id number] 10/29/2019 06:01:22 PM EDT [facility] Pt unsure of dose of Vraylar will call w berta Name Value Range Interpretation Code Description Data Melani rce(s) Supporting Document(s ) ID Date Data Source [id number] 10/29/2019 03:56:40 PM EDT [facility] [id number] [facility] [employer] [facility] [address] [facility] [place] [facility] SURG [address] [place] [address] [phone]/12/12 Maxwell Bray (Male) [id number] I 2 ED Dispo:ADMIT Chief Complaint: Dysarthria, Lethargy Diagnosis: Altered mental status, unspecified altered mental statu s type [] Bipolar disorder with severe depression (HCC) [] Current Providers: Att ending: Cole Ernandez; Cristi Canas Consulting Provider: Cristi Canas Primary Nurse: Kristy Moss Tech: HERMANN GonzalesN: [id number] [employer] [phone] - Bs hsi [employer] MrnMRN: [id number] [employer] [phone] - [employer]si [employer] Age Sex 1970 AGE 49 SEX Male Primary Care Provider: Ritika Canas MD Tdzcxamrk: (No Kn own Allergies)Date Reviewed: 10/29/2019Reviewed by: Ritika Canas MD - Review CompleteED Provider Notes: All no tesHNO ID: [id number]: Cristobal Ernandez MDService: -Author Type: PhysicianFiled: 10/29/19 [...] of morbidity or mortality cardiac cath at [facility] approx 6-8 months ago Other unknown and [...] week Gets together: Once a week Attends bahai service: More than 4 times per year [...] QTC Calculation (Bezet) 446 ms Calculated P [place] 53 degrees Calc ulated R [place] 68 degrees Calculated T [place] 0 degrees Diagnosis Sinus tachycardiaProlonged MO intervalNo nspecific intraventricular conduction delayCBC WITH AUTOMATED [...] Time: 10/29/19 10:45 AMResult Value Ref Range Cesar Chavez level <0.20 (L) 0.6 - 1.2 MMOL/L [...] contrast. Sagittal and coronalreconstruction was performed. Utilizing dry pan feeder algorithm theexaminationwas performed to optimize imaging quality [...] status, unspecified altered menta l status type R41.46414.97Patient condition at time of disposition: StableI have [...] PaulvalACYclovir (VALTREX) 1 gram tablet 07/17/18 Provider, nSeha ricalclonazePAM (KLONOPIN) 2 mg tablet Take 1 mg by mouth daily. Other,Ailyn Miller Stephen, MD I, Alexa nder Costa, [...] d thediagnostic studies, unless otherwise noted.+ED Orders [id number] CBC WITH AUTOMATED DIFF [# [id number]] Priority: STAT Class: ER Collect Standing Order Information Remaining Occurrences:0 /1 Interval:ONE TIME Last released:10/29/2019 Released orders: SunOctober 29, 2019 11:02 AM by: CRISTOBAL ERNANDEZ [id number] METABOLIC PANEL, COMPREHENSIVE [#[id number]] Bridgette ority: STAT Class: ER Collect Standing Order Information Remaining Occurrences:0/1 Inter haile:ONE TIME Last released:10/29/2019 Released orders: SunOctober 29, 2019 11:02 AM by: CRISTOBAL WADE [id number] PROTHROMBIN TIME + INR [#[id number]] Priority: STAT Class: E R Collect Standing Order Information Remaining Occurrences:0/1 Interval:ONE TI ME Last released:10/29/2019 Released orders: SunOctober 29, 2019 11:02 AM by: BRIE ERNANDEZ [id number] PTT [#[id number]] Priority: STAT Class: ER Collect Speci men Source: Blood Standing Order Information Remaining Occurrences:0/1 Interval:ONE TI ME Last released:10/29/2019 Released orders: SunOctober 29, 2019 11:02 AM by: AWAIS, BRIE EN [id number] URINALYSIS W/ RFLX MICROSCOPIC [#[id number]] Priority: STAT Class: ER Collect Sta nding Order Information Remaining Occurrences:0/1 Interval:ONE TIME Last released:0 10/29/2019 Released orders: SunOctober 29, 2019 11:02 AM by: CRISTOBAL ERNANDEZ [id number] LITHIUM [#[id number]] Priority: STAT Class: ER Collect Standing Order Information Remaining Occurrences:0/1 Interval:ONE TIME Last released:10/29/2019 Released orders : SunOctober 29, 2019 11:02 AM by: CRISTOBAL ERNANDEZ [id number] CBC WITH AUTOMATED DIFF [# [id number]] Priority: STAT Class: ER Collect Specimen Source: Whole Blood Specimen Collected: 020 10:45 AM Resulting Agency: [facility] Test ID: [id number] Released on: 0 11:02 AM [id number] METABOLIC PANEL, COMPREHENSIVE [#[id number]] Priority: STAT Class: E R Collect Specimen Source: Plasma Specimen Collected: 10/29/2019 10:45 AM Resulting Agency: [facility] Test ID: MPL Released on: 10/29/2019 11:02 AM [id number] PROTHROMBIN TIME + IN R [#[id number]] Priority: STAT Class: ER Collect Specimen Source: Plasma Specimen Collec hyun: 10/29/2019 10:45 AM Resulting Agency: [facility] Test ID: [id number] Released o n: 10/29/2019 11:02 AM [id number] PTT [#[id number]] Priority: STAT Class: ER Collect Specimen Source: Plasma Specimen Collected: 10/29/2019 10:45 AM Resulting Agency: [facility] Test ID: APTT Released on: 10/29/2019 11:02 AM [id number] URINALYSIS W/ RFLX WA CROSCOPIC [#[id number]] Priority: STAT Class: ER Collect Resulting Agency[facility] Test ID: UA Released on: 10/29/2019 11:02 AM [id number] LITHIUM [#[id number]] Priority: STAT Class: ER Collect Specimen Source: Serum Specimen Collected: 10/28 10:45 AM Resulting Agency: [facility] Test ID: LI Released on: 10/29/2019 11:02 AM [id number] CBC WITH AUTOMATED DIFF [#[id number]] Priority: STAT Class: E R Collect Standing Order Information Remaining Occurrences:06/25 Interval:TOMORR OW AM [id number] METABOLIC PANEL, BASIC [#[id number]] Priority: STAT Class: ER Collect St anding Order Information Remaining Occurrences:06/25 Interval:TOMORROW AM [id number] CT HEAD W O CONT [#[id number]] Priority: Routine Class: Hospital Performed Standing Or mariano Information Remaining Occurrences:0/1 Interval:ONE TIME Last released:10/29/2019 Released orders: SunOctober 29, 2019 11:02 AM by: CRISTOBAL ERNANDEZ Reason for Exam -> ams [id number] [id number] XR CHEST PORT [#[id number]] Priority: STAT Class: Hospital Performe d Standing Order Information Remaining Occurrences:0/1 Interval:ONE TIME Last release d:10/29/2019 Released orders: SunOctober 29, 2019 11:02 AM by: CRISTOBAL ERNANDEZ Reason for Exam -> ams [id number] CT HEAD WO CONT [#[id number]] Priority: STAT Class: Hospital Perfo rmed Specimen Collected: 10/29/2019 11:54 AM Resulting Agency: [facility] Test ID: [id number] [place] son for Exam -> ams Released on: 10/29/2019 11:02 AM [id number] XR CHEST PORT [#[id number]] Priority: STAT Class: Hospital Performed Specimen Collected: 10/29/2019 12:16 PM Resultin g Agency: [place] [facility] Test ID: [id number] Reason for Exam -> ams Released on: 10/29/2019 11:02 AM [id number] EKG, 12 LEAD, INITIAL [#[id number]] Priority: STAT Class: Hospital Performe d Standing Order Information Remaining Occurrences:0/1 Interval:ONE TIME Last release d:10/29/2019 Released orders: SunOctober 29, 2019 11:02 AM by: CRISTOBAL ERNANDEZ Reason for Exam : -> chest pain [id number] EKG, 12 LEAD, INITIAL [#[id number]] Priority: STAT Class: H ospital Performed Resulting Agency: [facility] Test ID: [id number] Reason for Exam: -> chest pain Releas ed on: 10/29/2019 11:02 AM [id number] POC GLUCOSE [#[id number]] Priority: STAT Cl ass: Hospital Performed Standing Order Information Remaining Occurrences:0/1 Interval:ONE TI ME Last released:10/29/2019 Released orders: SunOctober 29, 2019 11:02 AM by: BRIE ERNANDEZ [id number] POC GLUCOSE [#[id number]] Priority: STAT Class: Hospital Performe d Released on: 10/29/2019 11:02 AM [id number] VITAL SIGNS PER UNIT ROUTINE [#[id number]] Priorit y: STAT Class: Hospital Performed Standing Order Information Remaining Occurrences:0/1 Inte rval:CONTINUOUS Last released:10/29/2019 Released orders: SunOctober 29, 2019 2:54 PM by: RITIKA CANAS Comment:More frequently if Indicated. [id number] BEDREST, COMPLETE [#[id number]] Priority: STAT Class: Hospital Performed Standing Order Information Remainin g Occurrences:0/1 Interval:CONTINUOUS Last released:10/29/2019 Released orders : SunOctober 29, 2019 2:54 PM by: RITIKA CANAS [id number] NOTIFY PROVIDER: VITAL SIGNS CHANGES [# [id number]] Priority: STAT Class: Hospital Performed Standing Order [...] Less than 120 ml in 4 hours [id number] APPLY/MAINTAIN SEQUENTIAL COMPRESSIO* [#[id number]] Priority: ST AT Class: Hospital Performed Standing Order Information Remaining Occurrences:0/1 Inter haile:CONTINUOUS Last released:10/29/2019 Released orders: SunOctober 29, 2019 2:54 PM by: RITIKA CANAS [id number] VITAL SIGNS PER UNIT ROUTINE [#[id number]] Priority: STAT Class: H ospital Performed Comment:More frequently if Indicated. Released on: 10/29/2019 2:54 PM [id number] BEDREST, COMPLETE [#[id number]] Priority: STAT Class: Hospital Performed Relea sed on: 10/29/2019 2:54 PM [id number] NOTIFY PROVIDER: VITAL SIGNS CHANGES [#[id number]] Priority: STAT Class: Hospital Performed Temp -> [...] carmen rs Released on: 10/29/2019 2:54 PM [id number] APPLY/MAINTAIN SEQUENTIAL COMPRESSIO* [#[id number]] P riority: STAT Class: Hospital Performed Released on: 10/29/2019 2:54 PM SODIUM CHLORIDE 0.9 % IJ SYRG [#[id number]] Priority: STAT Class: Normal SODIUM CHLORIDE 0.9 % IJ SYRG [#[id number]] Priority: STAT Class: Normal ACETAMINOPHEN 325 MG TABLET [# [id number]] Priority: STAT Class: Normal ENOXAPARIN 40 MG/0.4 ML SUB-Q SYRINGE [#[id number]] Priority: STAT Class: Normal SODIUM CHLORIDE 0.9 % IV [#[id number]] Priority: STAT Class: Normal [id number] GLUCOSE, POC [#[id number]] Priority: Routine Class : ER Collect Resulting Agency: [facility] Test ID: BGG Standing Order Informati on Remaining Occurrences:0/1 Released orders: SunOctober 29, 2019 11:26 AM by: Automatic B [facility] Process [id number] GLUCOSE, POC [#[id number]] Priority: Routine Class : ER Collect Specimen Source: Whole Blood Specimen Collected: 10/29/2019 11:26 AM Resulting Agency: [facility] Test ID: BGG Released on: 10/29/2019 11:26 AM [id number] IP CONSULT TO PRIMARY CARE PROVIDER [#[id number]] Priority: STAT Class: Hospital Performed Standing Order Inf ormation Remaining Occurrences:01 Interval:ONE TIME Last released:10/29/2019 Relea sed orders: SunOctober 29, 2019 12:59 PM by: CRISTOBAL ERNANDEZ Reason for Consult: -> admit Did you call or speak to the consulting provider? -> No Consult To -> dr missael [id number] IP CONSULT TO PRIMAR Y CARE PROVIDER [#[id number]] Priority: STAT Class: Hospital Performed Reason for Consult: -> ad rei Did you call or speak to the consulting provider? -> No Consult To -> dr canas Released on: 12:59 PM CON53 IP CONSULT TO PSYCHIATRY [#[id number]] Priority: STAT Class: H ospital Performed Standing [...] -> TODAY CON53 IP CONSULT TO PSYCHIATRY [#[id number]] Priority: STAT Class: Hospital Performed Reason for Consult: -> 49 yo male with severe bipolar diseas e, admitted with slurred speech, severe weakness Did you call or speak to t he consulting provider? -> No Consult To -> Dr Aguirre Schedule When? -> TODAY Released on: 10/29/2019 2:54 PM [id number] INITIAL PHYSICIAN ORDER: INPATIENT [#[id number]] Priority: Routine Class : ADT Pend Transfer Standing Order Information Remaining Occurrences:01 Interval:ONE TI ME Last released:10/29/2019 Released orders: [...] disorder with severe depression (HCC) Admitting P brad -> RITIKA CANAS Attending Physician -> RITIKA CANAS Estimated Length of Stay -> 3-4 Midn ights Discharge Plan: -> Home with Office Follow-up [id number] INITIAL PHYSICIAN ORDER: INPATIENT [# [id number]] Priority: Routine Class: ADT Pend Transfer Status: [...] Foll ow-up Released on: 10/29/2019 2:43 PM [id number] INITIAL PHYSICIAN ORDER: INPATIENT [#[id number]] Priority: Routine Class: ADT Pend Transfer Standing Order Information Remaining Occurrences:0 Interval:ONE TIME Last released:10/29/2019 Released orders: SunOctober 29, 2019 2:54 PM by: RITIKA CANAS Status: -> INPATIENT Inpatient Hospitalization Certified Nece ssary for the Following Reasons -> 3- . [...] 3-4 Midnights Discharge Plan: -> Other (Specify) [id number] INITIAL PHYSIC JOSE ORDER: INPATIENT [#[id number]] Priority: Routine Class: ADT Pend Transfer Status: [...] 2:54 PM IVT3 INSERT PERIPHERAL IV [# [id number]] Priority: STAT Class: Hospital Performed Standing Order Information Remaining Occurre nces:0/1 Interval:ONE TIME Last released:10/29/2019 Released orders: SunOctober 28, 020 2:54 PM by: RITIKA CANAS IVT3 INSERT PERIPHERAL IV [#[id number]] Priority: ST AT Class: Hospital Performed Released on: 10/29/2019 2:54 PM CON75 IP CONSULT TO PHYSICAL THERAPY [#[id number]] Priority: STAT Class: Hospital Performed Standing Order Information Remainin g Occurrences: Interval:DAILY Last released:10/29/2019 Released orders : SunOctober 29, 2019 2:54 PM by: RITIKA CANAS CON75 IP CONSULT TO PHYSICAL THERAPY [#[id number]] Priority: STAT Class: Hospital Performed Released on: 10/29/2019 2:54 PM COD2 FULL CODE [#[id number]] Priority: STAT Class: Hospital Performed Standing Order Inf ormation Remaining Occurrences:0/1 Interval:CONTINUOUS Last released:10/29/2019 Rel eased orders: SunOctober 29, 2019 2:54 PM by: RITIKA CANAS COD2 FULL CODE [#[id number]] Priority: STAT Class: Hospital Performed Released on: 10/29/2019 2:54 PM [id number] 4 DIET FULL LIQUID [#[id number]] Priority: STAT Class: Hospital Performed Stand ing Order Information Remaining Occurrences:0/1 Interval:DIET EFFECTIVE NOW Last released:10/29/2019 Released orders: SunOctober 29, 2019 2:54 PM by: RITIKA CANAS Comment:A dvance as tolerated to regular diet [id number] DIET FULL LIQUID [#[id number]] Priority: STAT Class: Hospital Performed Comment:Advance as tolerated to regular diet Released on: 10/29/2019 2:54 JesusitaMaxwell mcleod MR#: [id number] * Rm: 416-02Ht: 5' 7" Wt: 3 00 lb Code: Full Code Iso:Diagnosis:Bipolar disorder with severe depression (HCC) [F31.4]Allergies : No Known Allergies -------- Current as of: 10/29/19 1556 ---aspirin (ASPIRIN) tablet 325 mg #[id number] Admin Amount: 1 Tab (1 x 325 mg Tab) Ordered Dose: 325 mg Route: Oral Freq: ONCE Start Date: 12/24/13 No administration times (back 96 hours, ahead 96 hours). ------diphenhydrAMINE (BENADRYL) capsule 50 mg #[id number] Admin Amount: 1 Cap (1 x 50 mg Cap) Ordered Dose: 50 mg [place]: Oral Freq: NOW Start Date: 12/24/13 No administration times (back 96 hours, e ad 96 hours). ------diazepam (VALIUM) tablet 5 mg #[id number] Admin Amount: 1 Tab (1 x 5 mg Tab) Ordered Dose: 5 mg Route: Ora l Freq: ONCE Start Date: 12/24/13 No administration times (back 96 hours, e ad 96 hours). ------lidocaine (XYLOCAINE) 10 mg/mL (1 %) injection 1-30 mL #[id number] Admin Amount: 1-30 mL Ordered Dose: 1-30 mL Route: IntraDERMal Freq: ONC E Start Date: 12/24/13 No administration times (back 96 hours, ahead 96 hours). ------heparin (PF) 2 units/ml in NS infusion 2,000 Units #[id number] Admin Amount: 1,000 mL = 2,000 Units of 2 Units/mL Ordered Dose: 1,000 mL Route: Irrigation Freq: ONCE Start Date: 12/24/13 No administration times (b ack 96 hours, ahead 96 hours). ------heparinized saline 2 units/mL infusion 1,000 Units #[id number] Admin Amount: 500 mL = 1,000 Units of 2 Units/mL Ordered Dose: 500 mL R oute: IntraarTERial Freq: ONCE Start Date: 12/24/13 No administration times (back 96 hours, ahead 96 hours). ------0.9% sodium chloride infusion #[id number] Ordered Dose: 75 mL/hr Route: IntraVENous Freq: CONTINUOUS Start Date: 12/24/13 Rate: 75 mL/hr Duration: No administration times (back 96 hours, ahead 96 hours). ------ioversol (OPTIRAY) 320 mg iodine/mL contrast injection 1-100 mL #[id number] Admin Amount: 1-100 mL Ordered Dose: 1-100 mL Route: IntraVENous Freq: RAD ONCE Start Date: 12/24/13 No administration times (back 96 hours, ahead 96 hours).Maxwell Bray MR#: [id number] * Rm: [id number]: 5' 7" Wt: 300 lb Code: Full Code Iso:Diagnosis:Bipolar disorder with severe depression (HCC) [F31.4]Allergies: No Kn own Allergies -------- Current as of: 10/29/19 1556 ---gadobutrol (GADAVIST) contrast solution 1-10 mL #[id number] Admin Amount: 1-10 mL Ordered Dose: 1-10 mL Route: IntraVENo us Freq: RAD ONCE Start Date: 01/13/14 No administration times (back 96 hours, [facility] ad 96 hours). ------sodium chloride (NS) flush 5-10 mL #[id number] Admin Amount: 5-10 mL Ordered Dose: 5-10 mL Route: IntraVENous Freq: RA D ONCE Start Date: 01/13/14 No administration times (back 96 hours, ahead 96 hours). ------sodium chloride (NS) 0.9 % flush #[id number] Ordered Dose: Route: Freq: Start D ate: 01/13/14 No administration times (back 96 hours, ahead 96 hours). ------morphine injection 2 mg #[id number] Admin Amount: 1 mL = 2 mg of 2 mg/mL Ordered Dose: 2 mg Route: Int raVENous Freq: NOW Start Date: 03/13/15 No administration times (back 96 hours, [facility] ad 96 hours). ------influenza vaccine (4 yr+)(PF) (FLUCELVAX QUAD) inj ection 0.5*#[id number] Admin Amount: 0.5 mL Ordered Dose: 0.5 mL Route: IntraMUSCular Freq : PRIOR TO DISCHARGE Start Date: 03/30/16 No administration times (back 96 hours, ahead 96 hours). ------oxyCODONE-acetaminophe n (PERCOCET) 5-325 mg per tablet 1 Tab #[id number] Admin Amount: 1 Tab Ordered Dose: 1 Tab Route: Oral Freq: NOW Start Date: 09/07/17 No administration times (back 96 hours, ahead 96 hours). ------barium sulfate (READICAT) 2.1 % (w/v), 2.0 % (w /w) oral suspension 9*#[id number] Admin Amount: 900 mL Ordered Dose: 900 mL Route: Ora l Freq: RAD ONCE Start Date: 10/15/17 No administration times (back 96 hours, ahe ad 96 hours). ------iopamidol (ISOVUE 300) 61 % contrast injection 100 mL #[id number] Admin Amount: 100 mL Ordered Dose: 100 mL Route: IntraVENous Freq: RAD O NCE Start Date: 10/15/17 No administration times (back 96 hours, ahead 96 hours).Maxwell Bray MR#: [id number] * Rm: [id number]: 5' 7" Wt: 300 lb Cod e: Full Code Iso:Diagnosis:Bipolar disorder with severe depression (HCC) [F31.4]Allergies: No Kn own Allergies -------- Current as of: 10/29/19 1556 ---risperiDONE (RisperDAL m-tabs) disintegrating tablet 1 mg #[id number] Admin Amount: 1 Tab (1 x 1 mg Tab) Ordered Dose: 1 mg [place]: Oral Freq: ONCE Start Date: 12/24/17 No administration times (back 96 hours, e ad 96 hours). ------ALPRAZolam (XANAX) tablet 2 mg #[id number] Admin Amount: 4 Tab (4 x 0.5 mg Tab) Ordered Dose: 2 mg Route: Ora l Freq: NOW Start Date: 12/24/17 No administration times (back 96 hours, e ad 96 hours). ------lamoTRIgine (LaMICtal) tablet 100 mg #[id number] Admin Amount: 1 Tab (1 x 100 mg Tab) Ordered Dose: 100 mg Route: Ora l Freq: ONCE Start Date: 12/24/17 No administration times (back 96 hours, e ad 96 hours). ------OLANZapine (ZyPREXA zydis) disintegrating tablet 5 mg #[id number] Admin Amount: 1 Tab (1 x 5 mg Tab) Ordered Dose: 5 mg Route: Ora l Freq: ONCE Start Date: 12/25/17 No administration times (back 96 hours, e ad 96 hours). ------LORazepam (ATIVAN) tablet 2 mg #[id number] Admin Amount: 4 Tab (4 x 0.5 mg Tab) Ordered Dose: 2 mg Route: Ora l Freq: NOW Start Date: 12/25/17 No administration times (back 96 hours, e ad 96 hours). ------LORazepam (ATIVAN) injection 1 mg #[id number] Admin Amount: 0.5 mL = 1 mg of 2 mg/mL Ordered Dose: 1 mg [place]: IntraVENous Freq: NOW Start Date: 12/25/17 No administration times (back 96 hours, ahead 96 hours). ------barium sulfate (EZ PAQUE) 96 % (w/w) contrast suspension 17 6 g #[id number] Admin Amount: 176 g Ordered Dose: 176 g Route: Oral Freq: RAD ONCE Start Date: 08/02/18 No administration times (back 96 hours, ahead 96 hours). ------barium sulfate (EZ PAQUE) 96 % (w/w) contrast suspension 17 6 g #[id number] Admin Amount: 176 g Ordered Dose: 176 g Route: Oral Freq: RAD ONCE Start Date: 08/02/18 No administration times (back 96 hours, ahead 96 hours).Maxwell Bray MR#: [id number] * Rm: 416-02Ht: 5' 7" Wt: 300 lb Code: Full Co de Iso:Diagnosis:Bipolar disorder with severe depression ([facility]) [F31.4]Allergies: No Known Allergies -------- Current as of: 10/29/19 [facility] ---aspirin chewable tablet 162 mg #[id number] Admin Amount: 2 Tab (2 x 81 mg Tab) Ordered Dose: 162 mg Route: Ora l Freq: NOW Start Date: 08/10/19 No administration times (back 96 hours, ahe ad 96 hours). ------0.9% sodium chloride infusion 1,000 mL #[id number] Admin Amount: 1,000 mL Ordered Dose: 1,000 mL Route: IntraVENous Freq: O NCE Start Date: 08/16/19 Rate: 1,000 mL/hr Duration: No administratio n times (back 96 hours, ahead 96 hours). ------methylPREDNISolone (PF) (Solu-MEDROL) injection 125 mg #[id number] Admin Amount: 2 mL = 125 mg of 125 mg/2 mL Ordered Dose: 125 mg [place]: IntraVENous Freq: NOW Start Date: 08/16/19 No administration times (back 9 6 hours, ahead 96 hours). ------aspirin chewable tablet 162 mg #[id number] Admin Amount: 2 Tab (2 x 81 mg Tab) Ordered Dose: 162 mg Route: Loretta cadena Freq: NOW Start Date: 08/16/19 No administration times (back 96 hours, ahe ad 96 hours). ------sodium chloride (NS) flush 5-40 mL #[id number] Admin Amount: 5-40 mL Ordered Dose: 5-40 mL Route: IntraVENous Freq: RONA NOLAN 8 HOURS Start Date: 10/29/19 Administration times (back 96 hours, ahead 96 hours): : 1400 2200 10/30/19: 0600 1400 2200 10/31/19: 0600 1400 2200 11/01/19: 0600 1400 2200 11/02/19: 0600 1400 ---sodium chloride (NS) flush 5-40 mL #[id number] Admin Amount: 5-40 mL Ordered Dose: 5-40 mL Route: IntraVENous Freq: NEEDED Start Date: 10/29/19 No administration times (back 96 hours, ahead 96 hours). ------acetaminophen (TYLENOL) tablet 650 mg #[id number] Admin Amount: 2 Tab (2 x 325 mg Tab) Ordered Dose: 650 mg [place]: Oral Freq: EVERY 4 HOURS NEEDED Start Date: 10/29/19 No administration times (back 96 hours, e ad 96 hours).Maxwell Bray MR#: [id number] * Rm: [id number]: 5' 7" Wt: 3 00 lb Code: Full Code Iso:Diagnosis:Bipolar disorder with severe depression (HCC) [F31.4]Allergies : No Known Allergies -------- Current as of: 10/29/19 1556 ---enoxaparin (LOVENOX) injection 40 mg #[id number] Admin Amount: 0.4 mL = 40 mg of 40 mg/0.4 mL Ordered Dose: 40 mg Route: SubCUTAneous Freq: EVERY 24 HOURS Start Date: 10/29/19 Administration times (back 96 hours, ahead 96 hours): 10/29/19: 145410/30/19: 145410/31/19: 145411/01/19: 145411/02/19 : 1455 ---0.9% sodium chloride infusion #[id number] Ordered Dose: 100 mL/hr Route: IntraVENous Freq: [...] Supporting Document(s ) ID Date Data Source [id number] 10/29/2019 03:54:13 PM EDT [facility] History & PhysicalBrian Anam Bray [...] chest x-ray which isunremarkable, complete blood count [facility] is unremarkable, normal comprehensivemetabolic panel, and serum [...] of morbidity or mortality cardiac cath at [facility] approx 6-8 months ag o Other unknown [...] week Gets together: Once a week Attends bahai service: More than 4 times per year [...] two (2) times daily asneeded. Other, Phys, MDNo Known AllergiesRevie w of Systems: Unreliable due [...] trast. Sagittal and coronal reconstruction was performed.Utilizing dry pan feeder alg orithm the examination was performed to [...] QTC Calculation (Bezet) 446 ms Calculated P [place] 53 degrees Calculat ed R [place] 68 degrees Calculated T [place] 0 degrees Diagnosis Sinus tachycardiaProl onged MO intervalNonspecific intraventricular conduction delayCBC WITH AUTOMATED DIFF [...] lydia: 10/29/19 10:45 AMResult Value Ref Range Cesar Chavez level <0.20 (L) 0.6 - 1.2 MMOL/L GLUCOSE, POC Collection Time: 10/29/19 11:26 AMResult Value Ref Range Glucose, bedsid e 102 65 - 110 MG/DLAll lab results for the last 24 hours reviewed.Assessment/PlanAc tive Problems: Bipolar disorder with severe depression (HCC) (10/29/2019) possible [place]ent[place] dvertentoverdoseGeaustin Canas MD Name Value Range Interpretation Code Description Data Melani rce(s) Supporting Document(s ) ID Date Data Source [id number] 10/29/2019 03:42:10 PM EDT [facility] TRANSFER - OUT REPORT:Verbal report give n to herminio RN(name) on Maxwell Bray being transferred to(unit) for routine progr ession of careReport consisted of patient's Situation, Background, Assessment andRec ommendations(SBAR).Information from the following report(s) SBAR, Kardex, ED Sum BAY romero andRekristy Results was reviewed with the receiving nurse.Lines:Peripheral [...] Supporting Document(s ) ID Date Data Source [id number] 10/29/2019 02:28:59 PM EDT [facility] The history is provided by [...] morbidity or mortal ity cardiac cath at [facility] approx 6-8 months ago Other unknown and [...] broken footFamily History:Problem Relation Age of Onset Patsy leon Mother Heart Disease MotherSocial HistorySocioeconomic History Marital [...] week Gets together: Once a week Attends bahai service: More than 4 times per year [...] QTC Calculation (Bezet) 446 ms Calculated P [place] 53 degr ees Calculated R [place] 68 degrees Calculated T [place] 0 degrees Diagnosis Sinus tachycar diaProlonged MO intervalNonspecific intraventricular conduction delayCBC WIT H AUTOMATED [...] lydia: 10/29/19 10:45 AMResult Value Ref Range Cesar Chavez level <0.20 (L) 0.6 - 1.2 MMOL/L [...] Sagittal and coronalreconstru ction was performed. Utilizing dry pan feeder algorithm the examinationwas performed t o optimize [...] Authorizing ProviderVraylar 3 mg capsule 09/03/19 Provider, Historicalamitriptyline (ELAVIL) 150 mg tablet TAKE 1 TABLET ORALLY NIGHT LY DOSE CHANGED08/20/19 Provider, Historicallithium carbonate 150 mg capsu le Take 300 mg by mouth three (3) times daily.Other, Phys, MDvalACYclovir (VALTR EX) 1 gram tablet 07/17/18 Provider, HistoricalclonazePAM (KLONOPIN) 2 mg tab let Take 1 mg by mouth daily. Other, Phys, Cristobal Robertson MD I, Robi Jin, am serving as a scribe to document [...] Supporting Document(s ) ID Date Data Source [id number] 10/29/2019 12:17:28 PM EDT [facility] XR CHEST PORTCLINICAL INDICATION PROVIDE D:. "ams."TECHNIQUE.: [...] Supporting Document(s ) ID Date Data Source [id number] 10/29/2019 11:55:57 AM EDT [facility] CT HEAD WO CONTClinical data: amsPriors: 03/13/2015.Technique: Multiple axial images were obtained from the skullbase to the vertexwithout administration of intravenous contrast. Sagittal and coronalreconstru ction was performed. Utilizing dry pan feeder algorithm the examinationwas performed t o optimize [...] Supporting Document(s ) ID Date Data Source [id number] 10/29/2019 11:48:34 AM EDT [facility] Name Value Range Interpretation Description Data Sup porting Code Source(s) Document(s ) Glucose 102 MG/DL 65-110 [facility] [Mass/volume] [facility] in Blood by [facility] Automated test strip ID Date Data Source [id number] 10/29/2019 10:49:56 AM EDT [facility] Patient lethargic, BIBA from home for le thargy and slurred speech. Name Value Range Interpretation Code Description Data Melani rce(s) Supporting Document(s ) ID Date Data Source [id number] 10/29/2019 11:29:33 AM EDT [facility] Name Value Range Interpretation Code Description Data Supporting Source(s) Document(s ) Cesar Chavez 0.6-1.2 Below low normal [facility] [Moles/volum Baptism e] in Serum Hospital or Plasma ID Date Data Source [id number] 10/29/2019 11:28:52 AM EDT [facility] Name Value Range Interpretation Description Data Sup porting Code Source(s) Document(s ) Sodium 136 136-145 [facility] [Moles/volume] mmol/L [facility] in Serum or Hospital Plasma Potassium 4.4 3.5-5.1 [facility] [Moles/volume] mmol/L [facility] in Serum or Hospital Plasma Chloride 106 98-107 [facility] [Moles/volume] mmol/L [facility] in Serum or Hospital Plasma Carbon 22 21-32 [facility] dioxide, total mmol/L [facility] [Moles/volume] Hospital in Serum or Plasma Anion gap in 12 10-20 [facility] Serum or mmol/L [facility] Hospital Glucose 108 74-106 Above high normal [facility] [Mass/volume] mg/dL [facility] in Serum or Hospital Plasma Urea nitrogen 16 mg/dL 7-18 [facility] [Mass/volume] [facility] in Serum or Hospital Plasma Creatinine 1.05 0.70-1.3 [facility] [Mass/volume] mg/dL 0 [facility] in Serum or Hospital Plasma Glomerular >60 [facility] - Good filtration Baptism rate/1.73 sq M Hospital predicted among blacks [Volume Rate/Area] in Serum or Plasma by Creatinine-bas ed formula (MDRD) Glomerular >60 [facility] - Good filtration [facility] rate/1.73 sq M Hospital predicted among non-blacks [Volume Rate/Area] in Serum or Plasma by Creatinine-bas ed formula (MDRD) (NOTE)Estimated GFR is calculated using the Modification of Diet in RenalDisease (MDRD) Study equation, reported for both Americans(GFRAA) and non- Americans (GFRNA), and normalized to 1.7 3i1nmjp surface area. The physician must decide which [...] 8.5-10.1 [facility] Serum or Plasma [facility] ital Bilirubin.total 0.7 mg/dL 0.2-1.0 [facility] - [facility] [Mass/volume] in Serum or [facility] Plasma Alanine aminotransferase 30 U/L 13-61 [facility] [Enzymatic activity/volume] [facility] in Serum or Plasma Aspartate aminotransferase 27 U/L 15-37 [facility] - Good [Enzymatic activity/volume] [facility] in Serum or Plasma by With P-5'-P Alkaline phosphatase 139 U/L 45-117 Above high [facility] - Good [Enzymatic activity/volume] normal [facility] in Serum or Plasma Protein [Mass/volume] in 7.6 g/dL 6.4-8.2 [facility] - Good Serum or Plasma [facility] ital Albumin [Mass/volume] in 3.9 g/dL 3.5-4.7 [facility] - Good Serum or Plasma by [facility] Bromocresol purple (BCP) dye binding method Globulin [Mass/volume] in 3.7 g/dL 1.7-4.7 [facility] - Good Serum by calculation [facility] Albumin/Globulin [Mass 1.0 0.7-2.8 [facility] - Good Ratio] in Serum or Plasma [facility] ID Date Data Source [id number] 10/29/2019 11:20:29 AM EDT [facility] Name Value Range Interpretation Description Data Sup porting Code Source(s) Document(s ) aPTT in 22.2 SEC 21.0-28. [facility] Platelet poor 0 Baptism plasma by [facility] Coagulation assay Therapeutic Range = 42.0-60.0 secs ID Date Data Source [id number] 10/29/2019 11:20:29 AM EDT [facility] - Good [facility] Name Value Range Interpretation Description Data Sup porting Code Source(s) Document(s ) Prothrombin 10.3 sec 9.4-11.1 [facility] - Good time (PT) [facility] INR in 1.0 0.8-1.2 [facility] - Good Platelet poor Baptism plasma by [facility] Coagulation assay ID Date Data Source [id number] 10/29/2019 11:11:49 AM EDT [facility] Name Value Range Interpretation Description Data Sup porting Code Source(s) Document(s ) Leukocytes 8.1 K/uL 4.8-10.6 [facility] - [#/volume] in Good Blood by Baptism Automated count [facility] Erythrocytes 5.52 4.70-6.0 [facility] - [#/volume] in M/uL 0 Good Blood by [facility] count [facility] Hemoglobin 16.7 14.0-18. [facility] - [Mass/volume] in g/dL 0 Good Blood [facility] Hematocrit 51.8 % 42.0-52. [facility] - [Volume 0 Good Fraction] of Baptism Blood by Hospital Automated count Erythrocyte mean 93.8 FL 81.0-94. [facility] - corpuscular 0 Good volume [Entitic Baptism volume] by Hospital Automated count Erythrocyte mean 30.3 PG 27.0-35. [facility] - corpuscular 0 Good hemoglobin [facility] [Entitic mass] Hospital by Automated count Erythrocyte mean 32.2 30.7-37. [facility] - corpuscular g/dL 3 Good hemoglobin [facility] concentration Hospital [Mass/volume] by Automated count Erythrocyte 13.2 % 11.5-14. [facility] - distribution 0 Good width [Ratio] by Baptism Automated count Hospital Platelets 193 K/uL 130-400 [facility] - [#/volume] in [facility] Blood by Baptism Automated count Hospital Platelet mean 8.6 FL 9.2-11.8 Below low normal [facility] - volume [Entitic Good volume] in Blood Bapt[facility] by Automated Hospital count Nucleated 0.0 PER 0 [facility] - erythrocytes/100 100 WBC Good leukocytes Baptism [Ratio] in Blood [facility] Nucleated 0.00 0.0-0.01 [facility] - erythrocytes K/uL Good [#/volume] in [facility] Segmented 79 % 48.0-72. Above high normal [facility] - neutrophils/100 0 [facility] leukocytes in [facility] Lymphocytes/100 10 % 18.0-40. Below low normal [facility] - leukocytes in 0 [facility] Monocytes/100 8 % 2.0-12.0 [facility] - leukocytes in [facility] Eosinophils/100 1 % 0.0-7.0 [facility] - leukocytes in [facility] Basophils/100 0 % 0.0-3.0 [facility] - leukocytes in [facility] Immature 1 % 0-0.5 Above high normal [facility] - granulocytes/100 Good leukocytes in [facility] Automated count Segmented 6.4 K/UL 2.3-7.6 [facility] - neutrophils Good [#/volume] in [facility] Lymphocytes 0.8 K/UL 0.9-4.2 Below low normal [facility] - [#/volume] in [facility] Monocytes 0.7 K/UL 0.1-1.7 [facility] - [#/volume] in [facility] Eosinophils 0.1 K/UL 0.0-1.0 [facility] - [#/volume] in [facility] Basophils 0.0 K/UL 0.0-0.4 [facility] - [#/volume] in [facility] Immature 0.1 K/UL 0.0-0.17 [facility] - granulocytes Good [#/volume] in [facility] Automated count Differential [facility] - cell count Good [facility] ID Date Data Source [id number] 09/15/2019 09:44:01 AM EDT [facility] Clinical Indications/Reason For Exam: pa in.AP, open-mouth [...] Supporting Document(s ) ID Date Data Source [id number] 09/15/2019 09:41:40 AM EDT [facility] THORACIC SPINE 4 views.History: Pain.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 Signing date/time: 09/15/2019 9:41 AMSigned by: CURTIS VARMA Name Value Range Interpretation Code Description Data Melani rce(s) Supporting Document(s ) ID Date Data Source [id number] 09/15/2019 09:40:53 AM EDT [facility] Clinical indications with reason for [...] Value Range Interpretation Code Description Data [facility] rce(s) Supporting Document(s ) ID Date Data Source [id number] 08/17/2019 08:25:20 AM [facility] History: Chest PainTechnique: Portable c hest [...] Value Range Interpretation Code Description Data [facility] rce(s) Supporting Document(s ) ID Date Data Source [id number] 08/16/2019 11:12:22 PM [facility] The history is provided by the patient, [...] m orbidity or mortality cardiac cath at [facility] approx 6-8 months ago Other unknown and [...] Not on fileTobacco Use Smoking status: Ness r Smoker Smokeless tobacco: Never UsedSubstance and Sexual Activity Alcoh ol use: No Frequency: Never Drug use: No Sexual activity: NeverLifestyle Physica l activity: Days per week: Not on file Minutes per session: Not on file Stress : Not on fileRelationships Social connections: Talks on phone: Not on olivier e Gets together: Not on file Attends bahai service: Not on file 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 [...] deficit. Sensory: No sensory deficit.Psychiatric: Behavior: Behavior normal.MDMIndio Zimmer NP, reviewed the patient's pas t history, allergies andhome medications as documented in the nursing chart.Labs:Rec ent Results (from the past 12 hour(s))EKG, 12 LEAD, INITIAL Collection Time: 08/16/19 8:47 PMResult Value Ref Range Ventricular Rate 109 BPM Atrial Rate 112 BPM P-R Int erval 175 ms QRS Duration 91 ms Q-T Interval 319 ms QTC Calculation (Bezet) 429 ms Ca lculated P [place] 36 degrees Calculated R [place] 77 degrees Calculated T [place] -24 degrees Diagnosis Sinus tachycardiaBorderline T abnormalities, [...] Time: 08/16/19 9:00 PMResult Value Ref Range Cesar Chavez level 0.21 (L) 0.6 - 1.2 MMOL/LEKG: sinus tach ycardia, rate 109Radiology:CXR: no acute findings<EMERGENCY DEPARTMENT CASE [facility]>Impression/Differential Diagnosis: Allergic reaction allergic, drug reactio n,ACS, pulmonary embolismED Course: Patient presents short of breath and mildly tach ycardic complainingof new onset rash to face anterior chest and posterior chest.Plan: Labs, chest x-ray, EKG, troponin, d-dimer, prednisone, Pepcid, kdjqqubqkbk39:04 PM patient verbalizes relief of symptoms rash has faded. He denies chestpain he denie s shortness of breath.Patient was advised that we cannot rule out allergic drug re action as he isrecently just restarted taking his lithium. Patient advised to discuss takinglithium with his psychiatrist as soon as possible.Patient reassessed at [facility] e by me. Feels better at present, wants to go home.Patient was told to follow up with the primary doctor in 1-2 days and return [facility] ED for any worsening severe [...] time of disposition: stableI have reviewed the [facility] medications:Prior to Admission medicationsMedication Sig Start Date [...] tablet Take 2 mg by mouth daily. OtPaul huddleston MDfluoxetine HCl (PROZAC PO) Take 60 mg by mouth daily. Other, Hodan Miller. CASANDRA Pollock was personally available for consultation in the emerge ncy department. I havereviewed the chart and agree with the documentation recorded by the MLP,including the assessment, treatment plan, and disposition.Mayank Troy MD Name Value Range Interpretation Code Description Data Melani rce(s) Supporting Document(s ) ID Date Data Source [id number] 08/16/2019 10:46:05 PM EST [facility] - [facility] [id number] [facility] EMERGENCY DEPARTMENT [address] [place] [id number] [phone] Maxwell Bray (Male) [id number] ES I 3 ED Dispo:DISCHARGE Chief Complaint: Allergic Reaction Diagnosis: Allergic reaction, initial encounter [] Allergic reaction to drug, in itial encounter [] Current Providers: Attending: Javier Quezada Nurse Practitioner: Javier Ward Primary Nurse: HARINDER AcuñaN: [id number] Print Group [phone] - [facility] MrnMRN: [id number] Print Group [id number] - [facility] Age Sex 1970 AGE 49 SEX Male Primary Care Provider: Ritika Canas MD Cneopgjvc: (No Known Allergies)Date Reviewed: 08/16/2019Reviewed by: Zahraa Prince RN - Review CompleteED Provider Notes: No not es of this type exist for this encounter.ED Orders BUPROPION XL 300 MG 24 HR TAB [#[id number]] Priority: Routine Class: Historical Med LITHIUM CARBONATE 150 MG CAP [#[id number]] Priority: Routine Class: Historical Med FAMOTIDINE 20MG + NS 10 ML IV [#[id number]] Priority: STAT Class: Normal H2RA INDICATION -> Adverse reaction/Anaphylaxis SODIUM CH LORIDE 0.9 % IV [#[id number]] Priority: STAT Class: Normal METHYLPREDNISOLONE (PF) 125 MG/2 ML * [#[id number]] Priority: STAT Class: Normal ASPIRIN 81 MG CHEWABLE TAB [# [id number]] Priority: STAT Class: Normal PREDNISONE 50 MG TAB [#[id number]] Bridgette ority: Routine Class: Normal 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 [#[id number]] Priority: STAT C lass: Hospital Performed Standing Order Information Remaining Occurrences:0/1 Interval:Contin uous Last released:08/16/2019 Released orders: Sat Aug 16, 2019 9:02 PM by: Javier POLLOCK Type: -> Bedside [id number] OBTAIN OLD EKG [#[id number]] Priority: Routi ne Class: Hospital Performed Standing Order Information Remaining Occurrences:0/1 Inter haile:ONE TIME Last released:08/16/2019 Released orders: Sat Aug 16, 2019 9:02 PM by: INDIO WARD [id number] PULSE OXIMETRY CONTINUOUS [#[id number]] Priority: STAT Class: H ospital Performed Standing Order Information Remaining Occurrences:0/1 Interval:CONTIN UOUS Last released:08/16/2019 Released orders: Sat Aug 16, 2019 9:02 PM by: Javier POLLOCK [id number] 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 [#[id number]] Priority: STAT Class: Hospital Perfo rmed Type: -> Bedside Released on: 08/16/2019 9:02 PM [id number] OBTAIN OLD EKG [#[id number]] Priority: STAT Class: Hospital Performed Released on: 08/16/2019 9:02 PM [id number] PULSE OXIMETRY CONTINUOUS [#[id number]] Priority: STAT Class: Hospital Performed Relea sed on: 08/16/2019 9:02 PM [id number] DIET NPO [#[id number]] Priority: STAT Cla ss: Hospital Performed Standing Order Information Remaining Occurrences:0/1 Interval:DIET E FFECTIVE NOW Last released:08/16/2019 Released orders: Sat Aug 16, 2019 9:02 PM by: INDIO WARD NPO options: -> With Meds [id number] DIET NPO [#[id number]] Priority: STAT Class: Hospital Performed NPO options: -> With Meds Released on: 08/16/2019 9:02 PM [id number] SALINE LOCK IV [#[id number]] Priority: STAT Class: Hospital Performe d Standing Order Information Remaining Occurrences:0/1 Interval:ONE TIME Last released: 08/16/2019 Released orders: Sat Aug 16, 2019 9:02 PM by: INDIO POLLOCK [id number] SALIN E LOCK IV [#[id number]] Priority: STAT Class: Hospital Performed Released on : 08/16/2019 9:02 PM [id number] METABOLIC PANEL, COMPREHENSIVE [#[id number]] Priority: STAT Class: E R Collect Standing Order Information Remaining Occurrences:0/1 Interval:ONE TIME Last r eleased:08/16/2019 Released orders: Sat Aug 16, 2019 9:02 PM by: INDIO POLLOCK [id number] CBC WITH AUTOMATED DIFF [#[id number]] Priority: STAT Class: ER Collect Standing Order Info rmation Remaining Occurrences:0/1 Interval:ONE TIME Last released:08/16/2019 Released orders: Sat Aug 16, 2019 9:02 PM by: INDIO POLLOCK [id number] TROPONIN I [#[id number]] Priority: STAT Class: ER Collect Standing Order Information Remaining Occurre nces:0/1 Interval:ONE TIME Last released:08/16/2019 Released orders: Sat Aug 16 9:02 PM by: INDIO POLLOCK [id number] MAGNESIUM [#[id number]] Priorit y: STAT Class: ER Collect Standing Order Information Remaining Occurrences:0/1 Inter haile:ONE TIME Last released:08/16/2019 Released orders: Sat Aug 16, 2019 9:02 PM by: INDIO WARD [id number] D DIMER [#[id number]] Priority: STAT Class: E R Collect Standing Order Information Remaining Occurrences:0/1 Interval:ONE TIME Last r eleased:08/16/2019 Released orders: [facility] Aug 16, 2019 9:02 PM by: INDIO POLLOCK [id number] METABOLIC PANEL, COMPREHENSIVE [#[id number]] Priority: STAT Class: ER Collect Specimen Source: Plas ma Specimen Collected: 08/16/2019 9:00 PM Resulting Agency: [facility] Test ID: MPL Released on: 08/16/2019 9:02 PM [id number] CBC WITH AUTOMATED DIFF [#[id number]] Prior ity: STAT Class: ER Collect Specimen Source: Whole Blood Specimen Collected: 08/16/2019 9:00 PM Resultin g Agency: [facility] Test ID: [id number] Released on: 08/16/2019 9:02 PM [id number] TROPONIN I [#[id number]] Priority: STAT Class: ER Collect Specimen Source : Plasma Specimen Collected: 08/16/2019 9:00 PM Resulting Agency: [facility] Test ID: TROIP Released on: 08/16/2019 9:02 PM [id number] MAGNESIUM [#[id number]] Priority: STAT Class: ER Collect Specimen Source: Plasma Specimen Collected: 08/16/2019 9:00 PM Resultin g Agency: [facility] Test ID: MGPL Released on: 08/16/2019 9:02 PM [id number] D DIMER [#[id number]] Priority: STAT Class: ER Collect Specimen Source : Plasma Specimen Collected: 08/16/2019 9:00 PM Resulting Agency: [facility] Test ID: [id number] Released on: 08/16/2019 9:02 PM [id number] LITHIUM [#[id number]] Priority: STAT Class: ER Collect Standing Order Information Remaining Occurrences:0/1 Inter haile:ONE TIME Last released:08/16/2019 Released orders: Sat Aug 16, 2019 9:02 PM by: INDIO WARD [id number] LITHIUM [#[id number]] Priority: STAT Class: E R Collect Specimen Source: Serum Specimen Collected: 08/16/2019 9:00 PM Resulting Agency: [facility] Test ID: LI Released on: 08/16/2019 9:02 PM [id number] EKG, 12 LEAD, INITIAL [#[id number]] Priority: STAT Class: Hospital Performed Standing Order Information Remainin g Occurrences:0/1 Interval:ONE TIME Last released:08/16/2019 Released orders : Sat Aug 16, 2019 9:02 PM by: INDIO POLLOCK Reason for Exam: -> Chest Pain [id number] EKG, 12 LEAD, INITIAL [#[id number]] Priority: STAT Class: Hospital Performed Resulting Age ncy: GSH MUSE Test ID: [id number] Reason for Exam: -> Chest Pain Released on: 08/16/2019 9:02 PM [id number] XR CHEST PORT [#[id number]] Priority: STAT Class: Hospital Performed Stand ing Order Information Remaining Occurrences:0/1 Interval:ONE TIME Last released:0 08/16/2019 Released orders: Sat Aug 16, 2019 9:02 PM by: INDIO POLLOCK Reason for Exam -> Chest Pain [id number] XR CHEST PORT [#[id number]] Priority: STAT Class: H ospital Performed Resulting Agency: [facility] Test ID: [id number] Reason for Exam -> Chest Pain Rele ased on: 08/16/2019 9:02 JORDYMaxwell waddell MR#: [id number] * Rm: [id number] Ht: 5' 10" Wt: 280 lb Code: Prior Iso:Diagnosis:Allergies: No Known Allergies -------- Current as of: 08/16/19 2246 GI=Given IC=IV Complet ed NB=New Bag --aspirin (ASPIRIN) tablet 325 mg #[id number] Admin Amount: 1 Tab (1 x 325 mg Tab) Ordered Dose: 325 mg Route: Oral Freq: ONCE Start Date: 12/24/13 No administration times (back 96 hours, ahead 96 hours). ------diphenhydrAMINE (BENADRYL) capsule 50 mg #[id number] Admin Amount: 1 Cap (1 x 50 mg Cap) Ordered Dose: 50 mg Route: Ora l Freq: NOW Start Date: 12/24/13 No administration times (back 96 hours, ahe ad 96 hours). ------diazepam (VALIUM) tablet 5 mg #[id number] Admin Amount: 1 Tab (1 x 5 mg Tab) Ordered Dose: 5 mg Route: Oral Freq: ON CE Start Date: 12/24/13 No administration times (back 96 hours, ahead 96 hours). ------lidocaine (XYLOCAINE) 10 mg/mL (1 %) injection 1-30 mL #[id number] Admin Amount: 1-30 mL Ordered Dose: 1-30 mL Route: IntraDERMal Freq: ONCE Start Date: 12/24/13 No administration times (back 96 hours, ahead 96 hours). ------heparin (PF) 2 units/ml in NS infusion 2,000 Units #[id number] Admin Amount: 1,000 mL = 2,000 Units of 2 Units/mL Ordered Dose: 1,000 mL [place]: Irrigation Freq: ONCE Start Date: 12/24/13 No administration times (back 96 hours, ahead 96 hours). ------heparinized saline 2 units/mL infusion 1,000 Units #[id number] Admin Amount: 500 mL = 1,000 Units of 2 Units/mL Ordered Dose: 500 mL [place]: IntraarTERial Freq: ONCE Start Date: 12/24/13 No administration times (back 96 hours, ahead 96 hours). ------0.9% sodium chloride infusion #[id number] Ordered Dose: 75 mL/hr Route: IntraVENous Freq: CONTINUOUS Start Date: 12/24/13 Rate: 75 mL/hr Duration: No administration times (back 96 hours, ahead 96 hours). ------ioversol (OPTIRAY) 320 mg iodine/mL contrast injection 1-100 mL #[id number] Admin Amount: 1-100 mL Ordered Dose: 1-100 mL Route: IntraVENous Freq: RAD O NCE Start Date: 12/24/13 No administration times (back 96 hours, ahead 96 hours).Maxwell Bray MR#: [id number] * Rm: [id number]: 5' 10" Wt: 280 lb Co de: Prior Iso:Diagnosis:Allergies: No Known Allergies -------- Current as of: 08/16/192245 GI=Given IC=IV Complet ed NB=New Bag --gadobutrol (GADAVIST) contrast solution 1-10 mL #[id number] Admin Amount: 1-10 mL Ordered Dose: 1-10 mL Route: IntraVENous Freq: RAD O NCE Start Date: 01/13/14 No administration times (back 96 hours, ahead 96 hours). ------sodium chloride (NS) flush 5-10 mL #[id number] Admin Amount: 5-10 mL Ordered Dose: 5-10 mL Route: IntraVENous Freq: RAD ONCE Start Date: 01/13/14 No administration times (back 96 hours, ahead 96 hours). ------sodium chloride (NS) 0.9 % flush #[id number] Ordered Dose: Route: Freq: Start Date: 01/13 No administration times (back 96 hours, ahead 96 hours). ------morphine injection 2 mg #[id number] Admin Amount: 1 mL = 2 mg of 2 mg/mL Ordered Dose: 2 mg Route: IntraVENous Freq: NOW Start Date: 03/13/15 No administration times (back 96 hours, ahe ad 96 hours). ------influenza vaccine (4 yr+)(PF) (FLUCELVAX QUAD) inj ection 0.5*#[id number] Admin Amount: 0.5 mL Ordered Dose: 0.5 mL Route: IntraMUSCular Freq: PRIOR TO DISCHARGE Start Date: 03/30/16 No administration times (back 96 hours, ahead 96 hours). ------oxyCODONE-acetaminophen (PERCOCET) 5-325 mg per tablet 1 Tab #[id number] Admin Amount: 1 Tab Ordered Dose: 1 Tab Route: Oral Freq: NOW Start Date: 09/07/17 No administration times (back 96 hours, ahead 96 hours). ------barium sulfate (READICAT) 2.1 % (w/v), 2.0 % (w /w) oral suspension 9*#[id number] Admin Amount: 900 mL Ordered Dose: 900 mL Route: Oral Delgado q: RAD ONCE Start Date: 10/15/17 No administration times (back 96 hours, ahead 96 hours). ------iopamidol (ISOVUE 300) 61 % contrast injection 100 mL #[id number] Admin Amount: 100 mL Ordered Dose: 100 mL Route: IntraVENous Freq: RAD ONC E Start Date: 10/15/17 No administration times (back 96 hours, ahead 96 hours).Maxwell Bray MR#: [id number] * Rm: [id number]: 5' 10" Wt: 280 lb Code: Prior Iso:Diagnosis:Allergies: No Known Allergies -------- Current as of: 08/16/192245 GI=Given IC=IV Complet ed NB=New Bag --risperiDONE (RisperDAL m-tabs) disintegrating tablet 1 mg #[id number] Admin Amount: 1 Tab (1 x 1 mg Tab) Ordered Dose: 1 mg Route: Oral Freq: ONCE Start Date: 12/24/17 No administration times (back 96 hours, ahead 96 hours). ------ALPRAZolam (XANAX) tablet 2 mg #[id number] Admin Amount: 4 Tab (4 x 0.5 mg Tab) Ordered Dose: 2 mg Route: Ora l Freq: NOW Start Date: 12/24/17 No administration times (back 96 hours, ahe ad 96 hours). ------lamoTRIgine (LaMICtal) tablet 100 mg #[id number] Admin Amount: 1 Tab (1 x 100 mg Tab) Ordered Dose: 100 mg Route: Oral Delgado q: ONCE Start Date: 12/24/17 No administration times (back 96 hours, ahead 96 hours). ------OLANZapine (ZyPREXA zydis) disintegrating tablet 5 mg #[id number] Admin Amount: 1 Tab (1 x 5 mg Tab) Ordered Dose: 5 mg Route: Oral Delgado q: ONCE Start Date: 12/25/17 No administration times (back 96 hours, ahead 96 hours). ------LORazepam (ATIVAN) tablet 2 mg #[id number] Admin Amount: 4 Tab (4 x 0.5 mg Tab) Ordered Dose: 2 mg Route: Ora l Freq: NOW Start Date: 12/25/17 No administration times (back 96 hours, ahe ad 96 hours). ------LORazepam (ATIVAN) injection 1 mg #[id number] Admin Amount: 0.5 mL = 1 mg of 2 mg/mL Ordered Dose: 1 mg Route: Int raVENous Freq: NOW Start Date: 12/25/17 No administration times (back 96 hours, ahe ad 96 hours). ------barium sulfate (EZ PAQUE) 96 % (w/w) contrast suspension 17 6 g #[id number] Admin Amount: 176 g Ordered Dose: 176 g Route: Oral Freq: RAD ONCE Start Date: 08/02/18 No administration times (back 96 hours, ahead 96 hours). ------barium sulfate (EZ PAQUE) 96 % (w/w) contrast s uspension 176 g #[id number] Admin Amount: 176 g Ordered Dose: 176 g Route: Oral Delgado q: RAD ONCE Start Date: 08/02/18 No administration times (back 96 hours, ahead 96 hours).Maxwell Ritter MR#: [id number] * Rm: BP11-14Kj: 5' 10" Wt: 280 lb Co de: Prior Iso:Diagnosis:Allergies: No Known Allergies -------- Current as of: 08/16/19 1457 GI=Given IC=IV Complet ed NB=New Bag --aspirin chewable tablet 162 mg #[id number] Admin Amount: 2 Tab (2 x 81 mg Tab) Ordered Dose: 162 mg Route: Oral Freq: NOW Start Date: 08/10/19 No administration times (back 96 hours, ahead 96 hours). ------famotidine (PF) (PEPCID) 20 mg in 0.9% sodium chloride 10 mL inje cti*#[id number] Admin Amount: 20 mg Ordered Dose: 20 mg Route: IntraVENous Freq: EVERY 12 H OURS Start Date: 08/16/19 Administration times (back 96 hours, ahead 96 hours): 08/16/19: 2119G I 08/17/19: 89908/18/19: 89908/19/19: 89908/20/19: 899 2099 ---0.9% sodium chloride infusion 1,000 mL #[id number] Admin Amount: 1,000 mL Ordered Dose: 1,000 mL Route: IntraVENous Freq: ONC E Start Date: 08/16/19 Rate: 1,000 mL/hr Duration: Administration times (back 96 hours, ahead 96 hours): 08/16/19: 2119NB 2245IC -----methylPREDNISolone (PF) (Solu-MEDROL) injection 125 mg #[id number] Admin Amount: 2 mL = 125 mg of 125 mg/2 mL Ordered Dose: 125 mg Route: Int raVENous Freq: NOW Start Date: 08/16/19 Administration times (back 96 hours, ahe ad 96 hours): 08/16/19: 2118GI -----aspirin chewable tablet 162 mg #[id number] Admin Amount: 2 Tab (2 x 81 mg Tab) Ordered Dose: 162 mg Route: Oral Delgado q: NOW Start Date: 08/16/19 Administration times (back 96 hours, ahead 96 hours): 08/16/19: 2118GI ED Current OP MedicationsbuPROPion XL (WELLBUTRIN XL) 300 mg XL tabletSig:Take 300 mg by mouth every morning.Dispense Amount:Start Date:End Date:Doc. Provider : Suzette, Paul MDlithium carbonate 150 mg capsuleSig:Take 300 mg by mouth three (3) times daily.Dispense Irene unt:Start Date:End Date:Doc. Provider: Suzette, Phys, MDpredniSONE (DELTASONE) 50 mg tabletSig:Take 1 Tab [...] Amount:3 TabStart Date:08/16/2019End Date: 0Auth. Provider: Indio Pollock NPFollow-up InformationFollow-up With:Ritika Canas M DDetails:In 2 daysComments:Contact Info:[address] [facility] [phone]-up With:[facility] EM[facility]ENCY DEPARTMENTDetails:Comments:As needed, If symptoms worsenContact Info:[address] [facility] [id number] Name Value Range Interpretation Code Description Data [facility] rce(s) Supporting Document(s ) ID Date Data Source [id number] 08/16/2019 10:45:45 PM [facility] IV site clean/dry/intact, gauze dressing applied. Pt received written and verbaldischarge instructions. Verbalize d understanding of same. Ambulated out of EDwith steady gait and in no distress. Name Value Range Interpretation Code Description Data [facility] rce(s) Supporting Document(s ) ID Date Data Source [id number] 08/16/2019 09:58:14 PM [facility] Name Value Range Interpretation Description Data Sup porting Code Source(s) Document(s ) Cesar Chavez 0.21 0.6-1.2 Below low normal [facility] - Good [Moles/volu MMOL/L [facility] ia] in Hospital Serum or Plasma ID Date Data Source [id number] 08/16/2019 09:52:19 PM EST [facility] [place] Value Range Interpretation Code Description Data Melani rce(s) Supporting Document(s ) Fibrin <500 [facility] - Good D-dimer FEU [facility] [Mass/volume] [facility] in Platelet poor plasma (NOTE)Combination of a D-Dimer result wi thin the reference range and a lowclinical pretest probability has good negative pr edictive value fordeep venous thrombosis.If results are utilized for VTE evaluation, <500 ng/ml is consideredto be negative. ID Date Data Source [id number] 08/16/2019 09:44:39 PM EST [facility] Value Range Interpretation Description Data Sup porting Code Source(s) Document(s ) Troponin 0.00-0.05 [facility] - Good I.cardiac [facility] [Mass/volume [facility] ] in Serum or Plasma (NOTE)The [...] to 1.50 ng/mL ID Date Data Source [id number] 08/16/2019 09:44:39 PM EST [facility] [place] Value Range Interpretation Description Data Sup porting Code Source(s) Document(s ) Sodium 138 136-145 [facility] - Good [Moles/volume] mmol/L [facility] in Serum or Hospital Plasma Potassium 3.4 3.5-5.1 Below low normal [facility] - Good [Moles/volume] mmol/L [facility] in Serum or Hospital Plasma Chloride 108 98-107 Above high normal [facility] - Good [Moles/volume] mmol/L [facility] in Serum or Hospital Plasma Carbon 20 21-32 Below low normal [facility] - Good dioxide, total mmol/L [facility] [Moles/volume] Hospital in Serum or Plasma Anion gap in 14 10-20 [facility] - Good Serum or mmol/L [facility] Plasma Hospital Glucose 105 74-106 [facility] - Good [Mass/volume] mg/dL [facility] in Serum or Hospital Plasma Urea nitrogen 20 mg/dL 7-18 Above high normal [facility] - Good [Mass/volume] [facility] in Serum or Hospital Plasma Creatinine 0.90 0.70-1.3 [facility] - Good [Mass/volume] mg/dL 0 [facility] in Serum or Hospital Plasma Glomerular >60 [facility] - Good filtration [facility] rate/1.73 sq M Hospital predicted among blacks [Volume Rate/Area] in Serum or Plasma by Creatinine-bas ed formula (MDRD) Glomerular >60 [facility] - Good filtration [facility] rate/1.73 sq M Hospital predicted among non-blacks [Volume Rate/Area] in Serum or Plasma by Creatinine-bas ed formula (MDRD) (NOTE)Estimated GFR is calculated using the Modification of Diet in RenalDisease (MDRD) Study equation, reported for both Americans(GFRAA) and non- Americans (GFRNA), and normalized to 1.7 8o4bris surface area. The physician must decide which [...] normal [facility] - Good Serum or Plasma [facility] ital Bilirubin.total 0.3 mg/dL 0.2-1.0 [facility] - Good [Mass/volume] in Serum or [facility] Plasma Alanine aminotransferase 37 U/L 13-61 [facility] - Good [Enzymatic activity/volume] [facility] in Serum or Plasma Aspartate aminotransferase 22 U/L 15-37 [facility] HS - Good [Enzymatic activity/volume] [facility] in Serum or Plasma by With P-5'-P Alkaline phosphatase 98 U/L 45-117 [facility] - G ood [Enzymatic activity/volume] [facility] in Serum or Plasma Protein [Mass/volume] in 7.0 g/dL 6.4-8.2 [facility] - Good Serum or Plasma [facility] ital Albumin [Mass/volume] in 3.7 g/dL 3.5-4.7 [facility] - Good Serum or Plasma by [facility] ospital Bromocresol purple (BCP) dye binding method Globulin [Mass/volume] in 3.3 g/dL 1.7-4.7 [facility] - Good Serum by calculation [facility] Albumin/Globulin [Mass 1.1 0.7-2.8 [facility] - Good Ratio] in Serum or Plasma [facility] ID Date Data Source [id number] 08/16/2019 09:44:39 PM EST [facility] - [facility] Name Value Range Interpretation Description Data Sup porting Code Source(s) Document(s ) Magnesium 2.3 mg/dL 1.6-2.6 [facility] - Good [Mass/volume] [facility] in Serum or Hospital Plasma ID Date Data Source [id number] 08/16/2019 09:23:23 PM EST [facility] - Good [facility] Name Value Range Interpretation Description Data Sup porting Code Source(s) Document(s ) Leukocytes 7.6 K/uL 4.8-10.6 [facility] - [#/volume] in Good Blood by [facility] Erythrocytes 4.97 4.70-6.0 [facility] - [#/volume] in M/uL 0 Good Blood by [facility] Hemoglobin 15.2 14.0-18. [facility] - [Mass/volume] in g/dL 0 Good Blood [facility] Hematocrit 45.0 % 42.0-52. [facility] - [Volume 0 Good Fraction] of [facility] Blood by [facility] Automated count Erythrocyte mean 90.5 FL 81.0-94. [facility] - corpuscular 0 Good volume [Entitic [facility] volume] by [facility] Automated count Erythrocyte mean 30.6 PG 27.0-35. [facility] - corpuscular 0 Good hemoglobin [facility] [Entitic mass] Hospital by Automated count Erythrocyte mean 33.8 30.7-37. [facility] - corpuscular g/dL 3 Good hemoglobin [facility] Hospital [Mass/volume] by Automated count Erythrocyte 13.0 % 11.5-14. [facility] - distribution 0 Good width [Ratio] by [facility] Automated count Hospital Platelets 183 K/uL 130-400 [facility] - [#/volume] in Good Blood by [facility] Automated count Hospital Platelet mean 8.5 FL 9.2-11.8 Below low normal [facility] - volume [Entitic Good volume] in Blood [facility] by Automated Hospital count Nucleated 0.0 PER 0 [facility] - erythrocytes/100 100 WBC Good leukocytes [facility] [Ratio] in Blood [facility] Nucleated 0.00 0.0-0.01 [facility] - erythrocytes K/uL Good [#/volume] in [facility] Segmented 68 % 48.0-72. [facility] - neutrophils/100 0 Good leukocytes in [facility] Lymphocytes/100 19 % 18.0-40. [facility] - leukocytes in 0 [facility] Monocytes/100 7 % 2.0-12.0 [facility] - leukocytes in [facility] Eosinophils/100 5 % 0.0-7.0 [facility] - leukocytes in [facility] Basophils/100 1 % 0.0-3.0 [facility] - leukocytes in [facility] Immature 1 % 0-0.5 Above high normal [facility] - granulocytes/100 Good leukocytes in [facility] Automated count Segmented 5.2 K/UL 2.3-7.6 [facility] - neutrophils Good [#/volume] in [facility] Lymphocytes 1.5 K/UL 0.9-4.2 [facility] - [#/volume] in [facility] Monocytes 0.6 K/UL 0.1-1.7 [facility] - [#/volume] in [facility] Eosinophils 0.3 K/UL 0.0-1.0 [facility] - [#/volume] in [facility] Basophils 0.0 K/UL 0.0-0.4 [facility] - [#/volume] in [facility] Immature 0.0 K/UL 0.0-0.17 [facility] - granulocytes Good [#/volume] in [facility] Blood by Hospital Automated count Differential [facility] - cell count Good method - Blood [facility] ID Date Data Source [id number] 08/16/2019 08:50:30 PM EST [facility] sudden onset of difficulty breathing and rash while eating leticia food, rashacross face and chest slightly raised, no vesicles, denies any chest pain deniesany itching at this time. Went to urgent care, recei nataliia benadryl 50 mg IMfrom EMS. Name Value Range Interpretation Code Description Data [facility] rce(s) Supporting Document(s ) ID Date Data Source [id number] 08/11/2019 08:03:02 AM [facility] History:Chest pain. Shortness of breath. FINDINGS:A [...] Name Value Range Interpretation Code Description Data [facility] Supporting Document(s ) ID Date Data Source [id number] 08/11/2019 04:22:14 AM [facility] The history is provided by the [...] of morbidity or mortality cardiac cath at [facility] approx 6-8 months ag o Other unknown [...] e Gets together: Not on file Attends bahai service: Not on file 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 [...] QTC Calculation (Bezet) 435 ms Calculated P [place] 55 degrees Calculated R [place] 34 degrees Calculated T [place] 9 degrees Diagnosis S inus tachycardiaOtherwise normal [...] Time: 08/11/19 12:01 AMResult Value Ref Range Cesar Chavez level <0.20 (L) 0.6 - 1.2 MMOL/LLACTIC [...] nonspecific STchan ges. Interpreted by Mayank Quezada V MDCardiac monitor reading shows Sinus ta chycardia [...] 36N*ENCOUNTER 08/11/2019 01:42:54 AM EST [facility] - [facility] [id number] [facility] EMERGENCY DEPARTMENT [address] [place] [address] [phone]/ Maxwell Mitchell (Male) [id number] JOSE 2 ED Dispo:DISCHARGE Chief Complaint: Chest Pain, Shortne ss of Breath Diagnosis: Dyspnea, unspecified type [] Current Providers: Atte nding: Javier Quezada Primary Nurse: ANDREW Wilson: [phone] Print [employer] p [phone] - Bsi [employer] Med[employer] MrnMRN: [id number] Print Group [phone] - Bs i Ed Medva Age SexDOB 1970 AGE 49 SEX Male Primary Care Provider: Ritika aCnas MD Phone: [phone]: (No Known Allergies)Date Reviewed: 08/10/2019Reviewed by: Chiquis Christianson CompleteED Provider Notes: No notes of this type exist for this encounter.ED Orders [id number] E KG, 12 LEAD, INITIAL [#[id number]] Priority: STAT Class: Hospital Performed Stand ing Order Information Remaining Occurrences:0/1 Interval:ONE TIME Last released:0 08/10/2019 Released orders: [place] Aug 10, 2019 10:17 PM by: CHIQUIS CHRISTIANSON Reason for Exam: -> CP SOB [id number] EKG, 12 LEAD, INITIAL [#[id number]] Priority: STAT Class: Hospital Performed Specimen Collected: 08/10/2019 10:14 PM Resulting Agency: [facility] Test ID: [id number] Reason for Exam: -> CP SOB Released on: 08/10/2019 10:17 PM [id number] EKG, 12 LE AD, INITIAL [#[id number]] Priority: STAT Class: Hospital Performed Standing Or mariano Information Remaining Occurrences:0/1 Interval:ONE TIME Last released:0 08/10/2019 Released orders: [place] Aug 10, 2019 11:51 PM by: MAYANK QUEZADA V Reason fo r Exam: -> Chest Pain [id number] EKG, 12 LEAD, INITIAL [#[id number]] Priority: STAT C lass: Hospital Performed Resulting Agency: [facility] Test ID: [id number] Reason for Exam: -> Chest P ain Released on: 08/10/2019 11:51 PM [id number] 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 [#[id number]] Priority: STAT Class: Hospital Performed Standing Order Information Remaining Occurre nces:0/1 Interval:Continuous Last released:08/10/2019 Released orders : [place] Aug 10, 2019 11:51 PM by: MAYANK QUEZADA V Type: -> Bedside [id number] PULSE OXIMETR Y CONTINUOUS [#[id number]] Priority: STAT Class: Hospital Performed Standing Or mariano Information Remaining Occurrences:0/1 Interval:CONTINUOUS Last released :08/10/2019 Released orders: [place] Aug 10, 2019 11:51 PM by: MAYANK QUEZADA V [id number] PULSE OXIMETRY SPOT CHECK [#[id number]] Priority: STAT Class: Hospital Performe d Standing Order Information Remaining Occurrences:0/1 Interval:ONE TIME Last r eleased:08/10/2019 Released orders: [place] Aug 10, 2019 11:51 PM by: MAYANK QUEZADA V NU [id number] OBTAIN OLD EKG [#[id number]] Priority: Routine Class: Hospital Perfo rmed Standing Order Information Remaining Occurrences:0/1 Interval:ONE TI ME Last released:08/10/2019 Released orders: Arabella Aug 10, 2019 11:51 PM by: MAYANK QUEZADA V [id number] 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 [#[id number]] Priority: STAT Class: H ospital Performed Type: -> Bedside Released on: 08/10/2019 11:51 PM [id number] PULSE OXIM ETRY CONTINUOUS [#[id number]] Priority: STAT Class: Hospital Performed Released on : 08/10/2019 11:51 PM [id number] PULSE OXIMETRY SPOT CHECK [#[id number]] Priority: STAT C lass: Hospital Performed Released on: 08/10/2019 11:51 PM [id number] OBTAIN OLD EKG [#[id number]] Priority: STAT Class: Hospital Performed Released on: 08/10/2019 11: 51 PM [id number] RT--OXYGEN CANNULA [#[id number]] Priority: STAT Class: H ospital Performed Standing Order Information Remaining Occurrences:0/1 Interval:CONTIN UOUS Last released:08/10/2019 Released orders: Arabella Aug 10, 2019 11:51 PM by: MAYANK PRADO V Comment:TITRATE UP TO 4 L / MINUTE TO MAINTAIN O2 SATS GREATER THAN OR EQUAL TO 94% LPM -> 2 Indications for O2? -> CHEST PAIN [id number] RT--OXYGEN CANNULA [#[id number]] Priority: STAT Class: Hospital Performed Comment:TITRATE UP TO 4 L / MINUTE TO MAINTAIN O2 SATS GREATER THAN OR EQUAL TO 94% LPM -> 2 Indications fo r O2? -> CHEST PAIN Released on: 08/10/2019 11:51 PM [id number] DIET NPO [#[id number]] Priority: STAT Class: Hospital Performed Standing Order Information Remaining Occurrences:0/1 Interval:DIET EFFECTIVE NOW Last released:08/10 Released orders: Arabella Aug 10, 2019 11:51 PM by: MAYANK QUEZADA V NPO options: - > With Meds [id number] DIET NPO [#[id number]] Priority: STAT Class: H ospital Performed NPO options: -> With Meds Released on: 08/10/2019 11:51 PM [id number] SALINE LOCK IV [#[id number]] Priority: STAT Class: Hospital Performed Standing O rder Information Remaining Occurrences:0/1 Interval:ONE TIME Last released:0 08/10/2019 Released orders: Sun Aug 10, 2019 11:51 PM by: MAYANK QUEZADA V IVT11 SALI NE LOCK IV [#[id number]] Priority: STAT Class: Hospital Performed Relea sed on: 08/10/2019 11:51 PM [id number] METABOLIC PANEL, COMPREHENSIVE [#[id number]] Bridgette ority: STAT Class: ER Collect Standing Order Information Remaining Occurrences:0/1 In terval:ONE TIME Last released:08/10/2019 Released orders: Sun Aug 10, 2019 11:51 PM by: MAYANK QUEZADA V [id number] CBC WITH AUTOMATED DIFF [#[id number]] Priority: STAT Class: ER Collect Standing Order Information Remaining Occurrences:0/1 Inter haile:ONE TIME Last released:08/10/2019 Released orders: [place] Aug 10, 2019 11:51 PM by: MAYANK QUEZADA V [id number] TROPONIN I [#[id number]] Priority: STAT Class: ER Collect Standing Order Information Remaining Occurrences:0/1 Inter haile:ONE TIME Last released:08/10/2019 Released orders: Sun Aug 10, 2019 11:51 PM by: MAYANK QUEZADA V [id number] MAGNESIUM [#[id number]] Priority: STAT Class: ER Collect Standing Order Information Remaining Occurrences:0/1 Inter haile:ONE TIME Last released:08/10/2019 Released orders: [place] Aug 10, 2019 11:51 PM by: MAYANK QUEZADA V [id number] BNP [#[id number]] Priority: STAT Class: ER Collect Standing Order Information Remaining Occurrences:0/1 Inter haile:ONE TIME Last released:08/10/2019 Released orders: Sun Aug 10, 2019 11:51 PM by: MAYANK QUEZADA V [id number] D DIMER [#[id number]] Priority: STAT Class: ER Collect Standing Order Information Remaining Occurrences:0/1 Inter haile:ONE TIME Last released:08/10/2019 Released orders: Sun Aug 10, 2019 11:51 PM by: MAYANK QUEZADA V [id number] PROTHROMBIN TIME + INR [#[id number]] Priority: STAT Class: ER Collect Standing Order Information Remaining Occurrences:0/1 Inter haile:ONE TIME Last released:08/10/2019 Released orders: Sun Aug 10, 2019 11:51 PM by: MAYANK QUEZADA V [id number] PTT [#[id number]] Priority: STAT Class: ER Collect Specimen Source: Blood Standing Order Information Remaining Occurrences:0 /1 Interval:ONE TIME Last released:08/10/2019 Released orders: [place] Aug 10, 2019 11:51 PM by: MAYANK QUEZADA V [id number] LITHIUM [#[id number]] Pr iority: STAT Class: ER Collect Standing Order Information Remaining Occurrences:0/1 I nterval:ONE TIME Last released:08/10/2019 Released orders: [place] Aug 10, 2019 11:51 PM by: MAYANK QUEZADA V [id number] METABOLIC PANEL, COMPREHENSIVE [#[id number]] Bridgette ority: STAT Class: ER Collect Specimen Source: Plasma Specimen Collected: 08/11/2019 12:01 AM Resulting Agency: [facility] Test ID: MPL Released on: 08/10/2019 11:51 PM [id number] CBC WITH AUTOMATED DIFF [#[id number]] Priority: STAT Class: E R Collect Specimen Source: Whole Blood Specimen Collected: 08/11/2019 12:01 AM Resulting Agency: [facility] Test ID: CBCXA Released on: 08/10/2019 11:51 PM [id number] TROPON IN I [#[id number]] Priority: STAT Class: ER Collect Specimen Source: Gerson sma Specimen Collected: 08/11/2019 12:01 AM Resulting Agency: [facility] RY Test ID: TROIP Released on: 08/10/2019 11:51 PM [id number] MAGNESIUM [#[id number]] Priority: STAT Class: ER Collect Specimen Source: Plasma Specimen Collec hyun: 08/11/2019 12:01 AM Resulting Agency: [facility] Test ID: MGPL Re leased on: 08/10/2019 11:51 PM [id number] BNP [#[id number]] Priority : STAT Class: ER Collect Specimen Source: Plasma Specimen Collected: 08/11/2019 12:01 AM Resultin g Agency: [facility] Test ID: BNPPB Released on: 08/10/2019 11:51 PM [id number] 74 D DIMER [#[id number]] Priority: STAT Class: ER Collect Speci men Source: Plasma Specimen Collected: 08/11/2019 12:01 AM Resulting Agency: [facility] Test ID: DDIME Released on: 08/10/2019 11:51 PM [id number] PROTHROMBIN TIME + INR [#[id number]] Priority: STAT Class: ER Collect Specimen Source: Plasma Specimen Collec hyun: 08/11/2019 12:01 AM Resulting Agency: [facility] Test ID: APTHR R eleased on: 08/10/2019 11:51 PM [id number] PTT [#[id number]] Priorit y: STAT Class: ER Collect Specimen Source: Plasma Specimen Collected: 08/11/2019 12:01 AM Resultin g Agency: [facility] Test ID: APTT Released on: 08/10/2019 11:51 PM [id number] LITHIUM [#[id number]] Priority: STAT Class: ER Collect Speci men Source: Serum Specimen Collected: 08/11/2019 12:01 AM Resulting Agency: [facility] Test ID: LI Released on: 08/10/2019 11:51 PM [id number] LACTIC ACID [#[id number]] Priority: STAT Class: ER Collect Standing Order Information Remainin g Occurrences:0/1 Interval:ONE TIME Last released:08/11/2019 Released orders : Mon Aug 11, 2019 12:15 AM by: KATI WILSON [id number] LACTIC ACID [#[id number]] Priority: STAT Class: ER Collect Specimen Source: Plasma Specimen Collec hyun: 08/11/2019 12:01 AM Resulting Agency: [facility] Test ID: LAC Rel eased on: 08/11/2019 12:15 AM ASPIRIN 81 MG CHEWABLE TAB [#[id number]] Priority: STAT Class: Normal [id number] XR CHEST PORT [#[id number]] Priority: STAT Cl ass: Hospital Performed Standing Order Information Remaining Occurrences:0/1 Inter haile:ONE TIME Last released:08/10/2019 Released orders: Sun Aug 10, 2019 11:51 PM by: MAYANK QUEZADA V Reason for Exam -> Chest Pain [id number] XR CHEST PORT [#[id number]] Priority: STAT Class: Hospital Performed Resulting Agency: [facility] Test ID: [id number] Reason for Exam -> Chest Pain Released on: 08/10/2019 11:51 PM [id number] INFLUENZA A & B AG (RAPID TEST) [#[id number]] Priority: STAT Class: ER Collect Sta nding Order Information Remaining Occurrences:0/1 Interval:ONE TIME Last released: 08/10/2019 Released orders: Sun Aug 10, 2019 11:51 PM by: MAYANK QUEZADA V [id number] INFL UENZA A & B AG (RAPID TEST) [#[id number]] Priority: STAT Class: ER Collect Specimen Source : Nasal washing Specimen Collected: 08/11/2019 12:18 AM Resulting Agency: [facility] Test ID: INFLUA Released on: 08/10/2019 11:51 PM [id number] CULTURE, BLOOD [#[id number]] Priority: STAT Class: ER Collect Specimen Source: Blood Standing Order Information Remaining Occurrences:0/1 Interval:ONE TIME Last released:0 08/11/2019 Released orders: Mon Aug 11, 2019 12:15 AM by: KATI WILSON [id number] CULTU RE, BLOOD [#[id number]] Priority: STAT Class: ER Collect Specimen Source : Blood Standing Order Information Remaining Occurrences:0/1 Interval:ONE TI ME Last released:08/11/2019 Released orders: Mon Aug 11, 2019 12:15 AM by: KATI WILSON [id number] CULTURE, BLOOD [#[id number]] Priority: STAT Class: E R Collect Specimen Source: Blood Specimen Collected: 08/11/2019 12:33 AM Resulting Agency: [facility] Test ID: HBCS Released on: 08/11/2019 12:15 AM [id number] CULTUR E, BLOOD [#[id number]] Priority: STAT Class: ER Collect Specimen Source: Blo od Specimen Collected: 08/11/2019 12:43 AM Resulting Agency: [facility] Test ID: HBCS Released on: 08/11/2019 12:15 AMLuisitoMaxwell donovan MR#: [id number] Acct#: [id number]* Rm: [id number]: 5' 10" Wt: 280 lb Code: Prior Iso:Diagnosis:Allergies: No Kno wn Allergies -------- Current as of: 08/11/19 0142 GI=Given -------aspirin (ASPIRIN) tablet 325 mg #[id number] Admin Amount: 1 Tab (1 x 325 mg Tab) Ordered Dose: 325 mg Route: Oral Freq: ONCE Start Date: 12/24/13 No administration times (b ack 96 hours, ahead 96 hours). ------diphenhydrAMINE (BENADRYL) capsule 50 mg #[id number] Admin Amount: 1 Cap (1 x 50 mg Cap) Ordered Dose: 50 mg Ro [place]: Oral Freq: NOW Start Date: 12/24/13 No administration times (back 96 hours, ahead 96 hours). ------diazepam (VALIUM) tablet 5 mg #[id number] Admin Amount: 1 Tab (1 x 5 mg Tab) Ordered Dose: 5 mg Route: Oral Freq: ONCE Start Date: 12/24/13 No administration times (back 96 hours, ahead 96 hours). ------lidocaine (XYLOCAINE) 10 mg/mL (1 %) injection 1-3 0 mL #[id number] Admin Amount: 1-30 mL Ordered Dose: 1-30 mL Route: Int raDERMal Freq: ONCE Start Date: 12/24/13 No administration times (back 96 hours, ahead 96 hours). ------heparin (PF) 2 units/ml in NS infusion 2,000 Units #[id number] Admin Amount: 1,000 mL = 2,000 Units of 2 Units/mL Ordered Dose: 1,000 mL Route: Irrigation Freq: ONCE Start Date: 12/24/13 No administration times (back 96 hours, ahead 96 hours). ------heparinized saline 2 units/mL infusion 1,000 Units #[id number] Admin Amount: 500 mL = 1,000 Units of 2 Units/mL Ordered Dose: 500 m L Route: IntraarTERial Freq: ONCE Start Date: 12/24/13 No admini stration times (back 96 hours, ahead 96 hours). ------0.9% sodium chloride infusion #[id number] Ordered Dose: 75 mL/hr Route: IntraVENous Freq: CONTINUOUS Start Date: 12/24/13 Rate: 75 mL/hr Duration: No administration ti mes (back 96 hours, ahead 96 hours). ------ioversol (OPTIRAY) 320 mg iodine/mL contrast inje ction 1-100 mL #[id number] Admin Amount: 1-100 mL Ordered Dose: 1-100 mL Ro [place]: IntraVENous Freq: RAD ONCE Start Date: 12/24/13 No administration times (back 96 hours, ahead 96 hours).Maxwell Bray MR#: [id number] * Rm: [id number] Ht: 5' 10" Wt: 280 lb Code: Prior Iso:Diagnosis:Allergies: No Known Allergies -------- Current as of: 08/11/19 0142 GI=Given -------gadobutrol (GADAVIST) contrast solution 1-10 mL #[id number] Admin Amount: 1-10 mL Ordered Dose: 1-10 mL Route: Int raVENous Freq: RAD ONCE Start Date: 01/13/14 No administration times (back 96 hours, ahead 96 hours). ------sodium chloride (NS) flush 5-10 mL #[id number] Admin Amount: 5-10 mL Ordered Dose: 5-10 mL Route: IntraVENo us Freq: RAD ONCE Start Date: 01/13/14 No administration times (back 96 hours, ahe ad 96 hours). ------sodium chloride (NS) 0.9 % flush #[id number] Ordered Dose: Route: Freq: Start Date: 01/13/14 No administration times (back 96 hours, ahead 96 hours). ------morphine injection 2 mg #[id number] Admin Amount: 1 mL = 2 mg of 2 mg/mL Ordered Dose: 2 mg Route: IntraVENous Freq: NOW Start Date: 03/13/15 No administration t imes (back 96 hours, ahead 96 hours). ------influenza vaccine 2016-17 (4 yr+)(PF) (FLUCELVAX Q UAD) injection 0.5*#[id number] Admin Amount: 0.5 mL Ordered Dose: 0.5 mL Route: Int raMUSCular Freq: PRIOR TO DISCHARGE Start Date: 03/30/16 No administration times (back 9 6 hours, ahead 96 hours). ------oxyCODONE-acetam inophen (PERCOCET) 5-325 mg per tablet 1 Tab #[id number] Admin Amount: 1 Tab Ordered Dose: 1 Tab Route: Oral Freq: NOW Start Date: 09/07/17 No administration times (back 96 hours, e ad 96 hours). ------barium sulfate (READICAT) 2.1 % (w/v), 2.0 % (w/w) oral suspension 9*#[id number] Admin Amount: 900 mL Ordered Dose: 900 mL Route: Oral Delgado q: RAD ONCE Start Date: 10/15/17 No administration times (back 96 hours, ahe ad 96 hours). ------iopamidol (ISOVUE 300) 61 % contrast injection 100 mL #[id number] Admin Amount: 100 mL Ordered Dose: 100 mL Route: Int raVENous Freq: RAD ONCE Start Date: 10/15/17 No administration times (back 96 hours, ahead 96 hours).Maxwell Bray MR#: [id number] * Rm: [id number]: 5' 1 0" Wt: 280 lb Code: Prior Iso:Diagnosis:Allergies: No Known Allergies -------- Current as of: 08/11/192 GI=Given -------risperiDONE (RisperDAL m-tabs) disintegrating tablet 1 mg #[id number] Admin Amount: 1 Tab (1 x 1 mg Tab) Ordered Dose: 1 mg Route: Oral Freq: ONCE Start Date: 12/24/17 No administration times (back 96 hours, ahead 96 hours). ------ALPRAZolam (XANAX) tablet 2 mg #[id number] Admin Amount: 4 Tab (4 x 0.5 mg Tab) Ordered Dose: 2 mg Route: Oral Freq: NOW Start Date: 12/24/17 No administration times (back 96 hours, ahead 96 hours). ------lamoTRIgine (LaMICtal) tablet 100 mg #[id number] Admin Amount: 1 Tab (1 x 100 mg Tab) Ordered Dose: 100 mg Route: Oral Freq: ONCE Start Date: 12/24/17 No administration times (back 96 hours, ahead 96 hours). ------OLANZapine (ZyPREXA zydis) disintegrating tablet 5 mg #[id number] Admin Amount: 1 Tab (1 x 5 mg Tab) Ordered Dose: 5 mg Route: Oral Freq: ONCE Start Date: 12/25/17 No administration times (back 96 hours, ahead 96 hours). ------LORazepam (ATIVAN) tablet 2 mg #[id number] Admin Amount: 4 Tab (4 x 0.5 mg Tab) Ordered Dose: 2 mg Route: Oral Freq: NOW Start Date: 12/25/17 No administration times (back 96 hours, ahead 96 hours). ------LORazepam (ATIVAN) injection 1 mg #[id number] Admin Amount: 0.5 mL = 1 mg of 2 mg/mL Ordered Dose: 1 mg Route: IntraVENous Freq: NOW Start Date: 12/25/17 No administration ti mes (back 96 hours, ahead 96 hours). ------barium sulfate (EZ PAQUE) 96 % (w/w) contrast suspensio n 176 g #[id number] Admin Amount: 176 g Ordered Dose: 176 g Route: Oral Delgado q: RAD ONCE Start Date: 08/02/18 No administration times (back 96 hours, ahe ad 96 hours). ------barium sulfate (EZ PAQUE) 96 % (w/w) contrast suspensio n 176 g #[id number] Admin Amount: 176 g Ordered Dose: 176 g Route: Oral Delgado q: RAD ONCE Start Date: 08/02/18 No administration times (back 96 hours, ahe ad 96 hours).Maxwell Bray MR#: [id number] * Rm: [id number]: 5' 10" Wt: 280 lb Code: Prior Iso:Diagnosis:Allergies: No Known Allergies -------- Current as of: 08/11/19 0142 GI=Given -------aspirin chewable tablet 162 mg #[id number] Admin Amount: 2 Tab (2 x 81 mg Tab) Ordered Dose: 162 mg Route: Oral Freq: NOW Start Date: 08/10/19 Administration times (laura k 96 hours, ahead 96 hours): 08/11/19: 0020GI ED Current OP MedicationsVRAYL AR 6 mg capsuleSig:Dispense Amount:Start Date:07/07/2019End Date:Doc. Provider: Provider, Danilo cyclobenzaprine (FLEXERIL) 10 mg tabletSig:Take 1 Tab [...] 60 mg by mouth daily.Dispense Amount:Start Date: Date:Doc. Provider: Paul Bradford MD ED Prescriptions None on FileFollow-up InformationFollow-up With:Ritika Canas MDDetails:Schedule an appointment as soon as possible for a visit in 1 dayComments:Contact Info:Chino Rodriguez [address] [phone] With:Detail s:Comments:As needed, If symptoms worsenContact Info: Name Value Range Interpretation Code Description Data Melani rce(s) Supporting Document(s ) ID Date Data Source [id number] 08/11/2019 01:40:37 AM EST [facility] I have reviewed discharge instructions w ith the patient and spouse. The patientand spouse verbalized understanding.\\ Name Value Range Interpretation Code Description Data Melani rce(s) Supporting Document(s ) ID Date Data Source [id number] 08/16/2019 06:35:29 AM EST [facility] Name Value Range Interpretation Description Data Sup porting Code Source(s) Document(s ) Service comment [facility] Bacteria [facility] - Good identified in [facility] specimen by Culture ID Date Data Source [id number] 08/16/2019 06:35:28 AM EST [facility] Name Value Range Interpretation Description Data Sup porting Code Source(s) Document(s ) Service comment [facility] Bacteria [facility] - Good identified in [facility] specimen by Culture ID Date Data Source [id number] 08/11/2019 12:56:01 AM EST [facility] Name Value Range Interpretation Description Data Sup porting Code Source(s) Document(s ) Influenza virus NEG [facility] A Ag [Presence] Baptism in [facility] Hospital by Immunoassay Influenza virus NEG [facility] B Ag [Presence] Baptism in [facility] by Immunoassay IMMUNOCHROMATOGRAPHIC MEMBRANE ASSAYResu lt: Negative for Influenza A and BNote: A negative result does not exclude an infl uenza virus infection, including H1N1. If more conclusive testing is desired, foll ow-up confirmatory testing is warranted. Specimen source [Identifier] of Unspecified [facility] specimen ID Date Data Source [id number] 08/11/2019 01:35:58 AM EST [facility] Name Value Range Interpretation Description Data Sup porting Code Source(s) Document(s ) Prothrombin 9.6 sec 9.4-11.1 [facility] - [facility] time (PT) [facility] INR in 0.9 0.8-1.2 [facility] - Good Platelet poor Baptism plasma by Hospital Coagulation assay ID Date Data Source [id number] 08/11/2019 01:35:58 AM EST [facility] Name Value Range Interpretation Description Data Sup porting Code Source(s) Document(s ) aPTT in 23.1 SEC 21.0-28. [facility] - Good Platelet poor 0 Baptism plasma by Hospital Coagulation assay Therapeutic Range = 42.0-60.0 secs ID Date Data Source [id number] 08/11/2019 01:30:36 AM [facility] Value Range Interpretation Description Data Sup porting Code Source(s) Document(s ) Natriuretic 19 pg/mL 0-100 [facility] - [facility] peptide B Baptism [Mass/volume] [facility] in Serum or Plasma ID Date Data Source [id number] 08/11/2019 01:25:10 AM EST [facility] Value Range Interpretation Code Description Data Supporting Source(s) Document(s ) Cesar Chavez 0.6-1.2 Below low normal [facility] - Good [Moles/volum Baptism e] in Serum Hospital or Plasma ID Date Data Source [id number] 08/11/2019 01:20:56 AM EST [facility] Value Range Interpretation Code Description Data Melani rce(s) Supporting Document(s ) [facility]in <[facility] D-dimer FEU Baptism [Mass/[facility]] [facility] in Platelet poor plasma (NOTE)Combination of a D-Dimer result wi thin the reference range and a lowclinical pretest probability has good negative pr edictive value fordeep venous thrombosis.If results are utilized for VTE evaluation, <500 ng/ml is consideredto be negative. ID Date Data Source [id number] 08/11/2019 01:09:42 AM EST [facility] Value Range Interpretation Description Data Sup porting Code Source(s) Document(s ) Lactate 1.7 0.4-2.0 [facility] - Good [Moles/volu MMOL/L [facility]] in Hospital Serum or Plasma ID Date Data Source [id number] 08/11/2019 01:09:42 AM EST [facility] Name Value Range Interpretation Description Data Sup porting Code Source(s) Document(s ) Troponin 0.00-0.05 [facility] - Good I.cardiac Baptism [Mass/volume [facility] ] in Serum or Plasma (NOTE)The [...] to 1.50 ng/mL ID Date Data Source [id number] 08/11/2019 01:09:42 AM EST [facility] - Good [facility] Name Value Range Interpretation Description Data Sup porting Code Source(s) Document(s ) Sodium 140 136-145 [facility] - Good [Moles/volume] mmol/L [facility]ism in Serum or Hospital Plasma Potassium 3.9 3.5-5.1 [facility] - Good [Moles/volume] mmol/L Baptism in Serum or Hospital Plasma Chloride 113 98-107 Above high normal [facility] - Good [Moles/volume] mmol/L Baptism in Serum or Hospital Plasma Carbon 21 21-32 [facility] - Good dioxide, total mmol/L Baptism [Moles/volume] Hospital in Serum or Plasma Anion gap in 10 10-20 [facility] - Good Serum or mmol/L Baptism Plasma Hospital Glucose 90 mg/dL 74-106 [facility] - Good [Mass/volume] [facility]ism in Serum or Hospital Plasma Urea nitrogen 18 mg/dL 7-18 [facility] - Good [Mass/volume] [facility] in Serum or Hospital Plasma Creatinine 0.78 0.70-1.3 [facility] - Good [Mass/volume] mg/dL 0 [facility] in Serum or Hospital Plasma Glomerular >60 [facility] - Good filtration Baptism rate/1.73 sq M Hospital predicted among blacks [Volume Rate/Area] in Serum or Plasma by Creatinine-bas ed formula (MDRD) Glomerular >60 [facility] - Good filtration Baptism rate/1.73 sq M Hospital predicted among non-blacks [Volume Rate/Area] in Serum or Plasma by Creatinine-bas ed formula (MDRD) (NOTE)Estimated GFR is calculated using the Modification of Diet in RenalDisease (MDRD) Study equation, reported for both Americans(GFRAA) and non- Americans (GFRNA), and normalized to 1.7 0n8smhf surface area. The physician must decide which [...] normal [facility] - Good Serum or Plasma Baptism Hosp ital Bilirubin.total 0.5 mg/dL 0.2-1.0 [facility] - Good [Mass/volume] in Serum or [facility] Plasma Alanine aminotransferase 29 U/L 13-61 [facility] - Good [Enzymatic activity/volume] [facility] in Serum or Plasma Aspartate aminotransferase 18 U/L 15-37 [facility] HS - Good [Enzymatic activity/volume] [facility] in Serum or Plasma by With P-5'-P Alkaline phosphatase 98 U/L 45-117 [facility] - G ood [Enzymatic activity/volume] [facility] in Serum or Plasma Protein [Mass/volume] in 6.7 g/dL 6.4-8.2 [facility] - Good Serum or Plasma [facility] ital Albumin [Mass/volume] in 3.4 g/dL 3.5-4.7 Below low normal [facility] - Good Serum or Plasma by [facility] ospital Bromocresol purple (BCP) dye binding method Globulin [Mass/volume] in 3.3 g/dL 1.7-4.7 BS[facility] S - Good Serum by calculation [facility] Albumin/Globulin [Mass 1.1 0.7-2.8 [facility] - Good Ratio] in Serum or Plasma [facility] ID Date Data Source [id number] 08/11/2019 01:09:42 AM EST [facility] Name Value Range Interpretation Description Data Sup porting Code Source(s) Document(s ) Magnesium 2.1 mg/dL 1.6-2.6 [facility] - Good [Mass/volume] Bapt[facility] in Serum or Hospital Plasma ID Date Data Source [id number] 08/11/2019 01:01:18 AM EST [facility] - Good [facility] Name Value Range Interpretation Description Data Sup porting Code Source(s) Document(s ) Leukocytes 7.7 K/uL 4.8-10.6 [facility] - [#/volume] in Good Blood by Baptism Automated count Hospital Erythrocytes 4.93 4.70-6.0 [facility] - [#/volume] in M/uL 0 Good Blood by [facility] count [facility] Hemoglobin 14.9 14.0-18. [facility] - [Mass/volume] in g/dL 0 [facility] Blood [facility] Hematocrit 44.4 % 42.0-52. [facility] - [Volume 0 Good Fraction] of Baptism Blood by Hospital Automated count Erythrocyte mean 90.1 FL 81.0-94. [facility] - corpuscular 0 Good volume [Entitic Baptism volume] by Hospital Automated count Erythrocyte mean 30.2 PG 27.0-35. [facility] - corpuscular 0 Good hemoglobin Baptism [Entitic mass] Hospital by Automated count Erythrocyte mean 33.6 30.7-37. [facility] - corpuscular g/dL 3 Good hemoglobin [facility] Hospital [Mass/volume] by Automated count Erythrocyte 12.5 % 11.5-14. [facility] - distribution 0 Good width [Ratio] by Baptism Automated count [facility] Platelets 189 K/uL 130-400 [facility] - [#/volume] in Good Blood by [facility] Platelet mean 9.0 FL 9.2-11.8 Below low normal [facility] - volume [Entitic Good volume] in Blood [facility] Automated Hospital count Nucleated 0.0 PER 0 [facility] - erythrocytes/100 100 WBC Good leukocytes Baptism [Ratio] in Blood Hospital Nucleated 0.00 0.0-0.01 [facility] - erythrocytes K/uL Good [#/volume] in Baptism Blood [facility] Segmented 59 % 48.0-72. [facility] - neutrophils/100 0 Good leukocytes in [facility] Lymphocytes/100 29 % 18.0-40. [facility] - leukocytes in 0 [facility] Blood [facility] Monocytes/100 7 % 2.0-12.0 [facility] - leukocytes in [facility] Blood [facility] Eosinophils/100 5 % 0.0-7.0 [facility] - leukocytes in [facility] Basophils/100 1 % 0.0-3.0 [facility] - leukocytes in [facility] Immature 0 % 0-0.5 [facility] - granulocytes/100 Good leukocytes in [facility] by Hospital Automated count Segmented 4.6 K/UL 2.3-7.6 [facility] - neutrophils Good [#/volume] in [facility] Lymphocytes 2.2 K/UL 0.9-4.2 [facility] - [#/volume] in [facility] Monocytes 0.5 K/UL 0.1-1.7 [facility] - [#/volume] in [facility] Eosinophils 0.4 K/UL 0.0-1.0 [facility] - [#/volume] in [facility] Basophils 0.1 K/UL 0.0-0.4 [facility] - [#/volume] in [facility] Immature 0.0 K/UL 0.0-0.17 [facility] - granulocytes Good [#/volume] in [facility] by Hospital Automated count Differential [facility] - cell count [facility] Procedure Social History Code Duration Value Status Description Data Source(s ) Alcohol intake 01/08/2020 Current completed Current [place] 12:00:00 AM EDT non-drinker non-drinker of [facility] [employer] alcohol (finding) [employer] (finding) Tobacco use and 01/08/2020 Never used completed Never used [facility] exposure 12:00:00 AM EDT [employer] Smoking 01/08/2020 Never smoker completed Never smoker [place] 12:00:00 AM EDT [employer] Alcohol intake 12/25/2019 Current completed Current [place] 12:00:00 AM EDT non-drinker non-drinker of [employer] alcohol (finding) [employer] (finding) Tobacco use and 12/25/2019 Never used completed Never used [facility] exposure 12:00:00 AM EDT [employer] Smoking 12/25/2019 Never smoker completed Never smoker [place] 12:00:00 AM EDT [employer] Alcohol intake 12/12/2019 Current completed Current [place] 12:00:00 AM EDT non-drinker non-drinker of [employer] alcohol alcohol (finding) [employer] (finding) Smoking 12/12/2019 Never smoker completed Never smoker [place] 12:00:00 AM EDT [facility] [employer] Alcohol intake 12/05/2019 Current completed Current [place] 12:00:00 AM EDT non-drinker non-drinker of [employer] of alcohol alcohol (finding) [employer] (finding) Tobacco use and 12/05/2019 Never used completed Never used [facility] exposure 12:00:00 AM EDT [facility] [employer] Smoking 12/05/2019 Never smoker completed Never smoker [place] 12:00:00 AM EDT [employer] Alcohol intake 12/01/2019 Current completed Current [place] 12:00:00 AM EDT non-drinker non-drinker of [employer] alcohol (finding) [employer] (finding) Smoking 12/01/2019 Never smoker completed Never smoker [place] 12:00:00 AM EDT [employer] Alcohol intake 11/14/2019 Current completed Current [place] 12:00:00 AM EDT non-drinker non-drinker of [employer] alcohol alcohol (finding) [employer] (finding) Smoking 11/14/2019 Never smoker completed Never smoker [place] 12:00:00 AM EDT [facility] [employer] Alcohol intake 11/10/2019 Current completed Current [place] 12:00:00 AM EDT non-drinker non-drinker of [employer] of alcohol alcohol (finding) [employer] (finding) Smoking 11/10/2019 Never smoker completed Never smoker [place] 12:00:00 AM EDT [employer] Alcohol intake 09/06/2019 Current completed Current [place] 12:00:00 AM EDT non-drinker non-drinker of [employer] of alcohol alcohol (finding) [employer] (finding) Smoking 09/06/2019 Never smoker completed Never smoker [place] 12:00:00 AM EDT [facility] [employer] Alcohol intake 08/16/2019 Current completed Current [place] 12:00:00 AM EST non-drinker non-drinker of [employer] alcohol (finding) [employer] (finding) Smoking 08/16/2019 Never smoker completed Never smoker [place] 12:00:00 AM EST [employer] Alcohol intake 08/10/2019 Current completed Current [place] 12:00:00 AM EST non-drinker non-drinker of [employer] alcohol (finding) [employer] (finding) Smoking 08/10/2019 Never smoker completed Never smoker [place] 12:00:00 AM EST [employer] Alcohol intake 07/21/2019 Current completed Current [place] 12:00:00 AM EST non-drinker non-drinker of [employer] alcohol (finding) [employer] (finding) Smoking 07/21/2019 Never smoker completed Never smoker [place] 12:00:00 AM EST [employer] Smoking 07/29/2018 Never smoker completed Never smoker [place] 12:00:00 AM EST [employer] Smoking 07/19/2018 Never smoker completed Never smoker [place] 12:00:00 AM EST [employer] Smoking 07/11/2018 Never smoker completed Never smoker [place] 12:00:00 AM YODIL Vital Signs ID Date Data Source UNK Name Value Range Interpretation Code Description Data Source(s) Oxygen saturation 98 % 98 % Steve Bates ours in Arterial blood [employer] by [employer] Body mass index 48.95 kg/m2 48.95 kg/m2 [facility] ours (BMI) [Ratio] [employer] Body weight 136.533 kg 136.533 kg [facility] [employer] Body height 167 cm 167 cm [facility] [employer] Respiratory rate 12 /min 12 /min [facility] [employer] Body temperature 36.56 May 36.56 May [facility] [employer] Heart rate 102 /min 102 /min [facility] [employer] [employer] Diastolic blood 60 mm[Hg] 60 mm[Hg] [facility] pressure [employer] Systolic blood 100 mm[Hg] 100 mm[Hg] [place] pressure [facility] Diastolic blood 80 mm[Hg] 80 mm[Hg] [facility] pressure [employer] Systolic blood 122 mm[Hg] 122 mm[Hg] [place] pressure [employer] Respiratory rate 20 /min 20 /min [facility] [employer] Heart rate 70 /min 70 /min [facility] [employer] Diastolic blood 70 mm[Hg] 70 mm[Hg] [facility] pressure [employer] Systolic blood 124 mm[Hg] 124 mm[Hg] [place] pressure [employer] Respiratory rate 18 /min 18 /min [facility] [employer] Body temperature 36.56 May 36.56 May [facility] [employer] Heart rate 88 /min 88 /min [facility] [employer] Diastolic blood 86 mm[Hg] 86 mm[Hg] [facility] pressure [employer] Systolic blood 110 mm[Hg] 110 mm[Hg] [place] pressure [employer] Oxygen saturation 98 % 98 % [facility] in Arterial blood [employer] by Pulse [employer]etry [employer] Body mass index 47.98 kg/m2 47.98 kg/m2 [facility] (BMI) [Ratio] Bel[facility] Body weight 133.811 kg 133.811 kg [facility] [employer] Body height 167 cm 167 cm [facility] [employer] [employer] Respiratory rate 12 /min 12 /min [facility] [employer] Body temperature 36.67 May 36.67 May [facility] [employer] Heart rate 100 /min 100 /min [facility] [employer] Diastolic blood 66 mm[Hg] 66 mm[Hg] [facility] pressure [employer] Systolic blood 102 mm[Hg] 102 mm[Hg] [place] pressure [employer] Respiratory rate 20 /min 20 /min [facility] [employer] Heart rate 70 /min 70 /min [facility] [employer] Diastolic blood 68 mm[Hg] 68 mm[Hg] [facility] pressure [employer] Systolic blood 120 mm[Hg] 120 mm[Hg] [place] pressure [employer] Respiratory rate 18 /min 18 /min [facility] [employer] Heart rate 68 /min 68 /min [facility] [employer] Diastolic blood 68 mm[Hg] 68 mm[Hg] [facility] pressure [employer] Systolic blood 112 mm[Hg] 112 mm[Hg] [place] pressure [employer] Respiratory rate 20 /min 20 /min [facility] [employer] Body temperature 36.56 May 36.56 May [facility] [employer] Heart rate 92 /min 92 /min [facility] [employer] Diastolic blood 70 mm[Hg] 70 mm[Hg] [facility] pressure [employer] Systolic blood 110 mm[Hg] 110 mm[Hg] [place] pressure [employer] Respiratory rate 20 /min 20 /min [facility] [employer] Heart rate 68 /min 68 /min [facility] [employer] Diastolic blood 72 mm[Hg] 72 mm[Hg] [facility] pressure [employer] Systolic blood 112 mm[Hg] 112 mm[Hg] [place] pressure [employer] Respiratory rate 20 /min 20 /min [facility] [employer] Heart rate 82 /min 82 /min [facility] [employer] Diastolic blood 66 mm[Hg] 66 mm[Hg] [facility] pressure [employer] Systolic blood 110 mm[Hg] 110 mm[Hg] [place] pressure [employer] Respiratory rate 14 /min 14 /min [facility] [employer] Body temperature 36.89 May 36.89 May [facility] [employer] Heart rate 72 /min 72 /min [facility] [employer] Diastolic blood 74 mm[Hg] 74 mm[Hg] [facility] pressure [facility] Systolic blood 128 mm[Hg] 128 mm[Hg] [place] pressure [employer] [employer] [facility] Respiratory rate 20 /min 20 /min [facility] [employer] Heart rate 68 /min 68 /min [facility] [employer] Diastolic blood 64 mm[Hg] 64 mm[Hg] [facility] pressure [employer] [facility] Systolic blood 108 mm[Hg] 108 mm[Hg] [place] pressure [employer] Respiratory rate 18 /min 18 /min [facility] [employer] Heart rate 80 /min 80 /min [facility]illion[employer] Inc Diastolic blood 70 mm[Hg] 70 mm[Hg] [facility] pressure [employer] Systolic blood 98 mm[Hg] 98 mm[Hg] [place] pressure [employer] Respiratory rate 20 /min 20 /min [facility] [employer] Body temperature 36.56 May 36.56 May [facility] [employer] Heart rate 78 /min 78 /min [employer] Sec[employer]World [employer] Diastolic blood 60 mm[Hg] 60 mm[Hg] [facility] pressure [employer] Systolic blood 110 mm[Hg] 110 mm[Hg] [place] pressure [employer] Body mass index 48.95 kg/m2 48.95 kg/m2 [facility] (BMI) [Ratio] [employer] Body weight 136.533 kg 136.533 kg [employer] Respiratory rate 18 /min 18 /min [facility] [employer] Body temperature 36.56 May 36.56 May [facility] [employer] Heart rate 80 /min 80 /min [employer] Diastolic blood 70 mm[Hg] 70 mm[Hg] [facility] pressure [employer] Systolic blood 128 mm[Hg] 128 mm[Hg] [place] pressure [employer] Oxygen saturation 98 % 98 % [facility] in Arterial blood Bela [employer] by [employer]ulse [employer] Body mass index 48.95 kg/m2 48.95 kg/m2 [facility] (BMI) [Ratio] [employer] Body weight 136.533 kg 136.533 kg [employer] Body height 167 cm 167 cm [employer] Respiratory rate 14 /min 14 /min [facility] [employer] Body temperature 36.44 May 36.44 May [facility] [employer] Heart rate 98 /min 98 /min [employer] Diastolic blood 60 mm[Hg] 60 mm[Hg] [facility] pressure [employer] Systolic blood 110 mm[Hg] 110 mm[Hg] [place] pressure [employer] Oxygen saturation 96 % 96 % [facility] in Arterial blood [facility] by Pulse oximetry [employer] Respiratory rate 18 /min 18 /min [place] [facility] [employer] Body temperature 36.72 May 36.72 May [place] [facility] [facility] [employer] Heart rate 80 /min 80 /min [facility] [employer] [employer] Diastolic blood 88 mm[Hg] 88 mm[Hg] [facility] pressure [employer] Systolic blood 128 mm[Hg] 128 mm[Hg] [place] pressure [employer] Body mass index 48.97 kg/m2 48.97 kg/m2 [facility] (BMI) [Ratio] [employer] [facility] Body weight 136.578 kg 136.578 kg [employer] Body height 167 cm 167 cm [employer] [facility] Oxygen saturation 98 % 98 % [facility] in Arterial blood Bel[facility] [employer] by [employer]ulse [employer] Body mass index 48.30 kg/m2 48.30 kg/m2 [facility] (BMI) [Ratio] [employer] [facility] Body weight 134.718 kg 134.718 kg [employer] Body height 167 cm 167 cm [employer] Respiratory rate 14 /min 14 /min [facility] [employer] Body temperature 37.33 May 37.33 May [facility] [employer] Heart rate 100 /min 100 /min [employer] Diastolic blood 68 mm[Hg] 68 mm[Hg] [facility] pressure [employer] [facility] Systolic blood 118 mm[Hg] 118 mm[Hg] [place] pressure [employer] Oxygen saturation 98 % 98 % [facility] in Arterial blood Bel[employer] by [employer]ulse [employer] Body mass index 47.49 kg/m2 47.49 kg/m2 [facility] (BMI) [Ratio] [employer] [facility] Body weight 132.45 kg 132.45 kg [employer] Body height 167 cm 167 cm [employer] Respiratory rate 12 /min 12 /min [facility] [employer] Body temperature 36.44 May 36.44 May [facility] [employer] Heart rate 88 /min 88 /min [employer] Diastolic blood 70 mm[Hg] 70 mm[Hg] [facility] pressure [employer] Systolic blood 102 mm[Hg] 102 mm[Hg] [place] pressure [employer] Oxygen saturation 92 % 92 % [facility] in Arterial blood [employer] by [employer] Body mass index 45.86 kg/m2 45.86 kg/m2 [facility] (BMI) [Ratio] [employer] Body weight 133.811 kg 133.811 kg [facility] [employer] [employer] Body height 170.8 cm 170.8 cm [employer] Respiratory rate 12 /min 12 /min [facility] [employer] Body temperature 36.67 May 36.67 May [facility] [employer] Heart rate 88 /min 88 /min [employer] Diastolic blood 80 mm[Hg] 80 mm[Hg] [facility] pressure [employer] Systolic blood 120 mm[Hg] 120 mm[Hg] [place] pressure [employer] Oxygen saturation 95 % 95 % [facility] in Arterial blood [employer] by [employer]ulse [employer] Respiratory rate 18 /min 18 /min [facility] [employer] Body temperature 36.44 May 36.44 May [facility] [employer] Heart rate 100 /min 100 /min [employer] Diastolic blood 80 mm[Hg] 80 mm[Hg] [facility] pressure [employer] Systolic blood 123 mm[Hg] 123 mm[Hg] [place] pressure [employer] Body mass index 46.99 kg/m2 46.99 kg/m2 [facility] (BMI) [Ratio] [employer] Body weight 136.079 kg 136.079 kg [facility] [employer] [employer] Body height 170.2 cm 170.2 cm [employer] Oxygen saturation 96 % 96 % [facility] in Arterial blood [employer] by [employer] Body mass index 45.55 kg/m2 45.55 kg/m2 [facility] (BMI) [Ratio] [employer] Body weight 132.904 kg 132.904 kg [facility] [employer] [employer] Body height 170.8 cm 170.8 cm [employer] [employer] Respiratory rate 14 /min 14 /min [facility] [employer] Body temperature 35.89 May 35.89 May [facility] [employer] Heart rate 96 /min 96 /min [employer] Diastolic blood 78 mm[Hg] 78 mm[Hg] [facility] pressure [employer] Systolic blood 116 mm[Hg] 116 mm[Hg] [place] pressure [employer] Oxygen saturation 92 % 92 % [facility] in Arterial blood [facility] by Pulse oximetry [employer] Respiratory rate 15 /min 15 /min [facility] [employer] Heart rate 96 /min 96 /min [facility] Inc Diastolic blood 86 mm[Hg] 86 mm[Hg] [facility] pressure [employer] Systolic blood 121 mm[Hg] 121 mm[Hg] [place] pressure [employer] Body mass index 40.18 kg/m2 40.18 kg/m2 [facility] (BMI) [Ratio] [employer] Body weight 127.007 kg 127.007 kg [employer] Body height 177.8 cm 177.8 cm [employer] Body temperature 36.72 May 36.72 May [facility] [employer] [employer] Body temperature 36.33 May 36.33 May [facility] [employer] Oxygen saturation 96 % 96 % [facility] in Arterial blood [facility] by Pulse oximetry [employer] Respiratory rate 21 /min 21 /min [facility] [employer] Heart rate 85 /min 85 /min [employer] Diastolic blood 88 mm[Hg] 88 mm[Hg] [facility] pressure [employer] Systolic blood 155 mm[Hg] 155 mm[Hg] [place] s pressure [employer] Body mass index 40.18 kg/m2 40.18 kg/m2 [facility] (BMI) [Ratio] [employer] [facility] Body weight 127.007 kg 127.007 kg [employer] Body height 177.8 cm 177.8 cm [employer] Oxygen saturation 98 % 98 % [facility] in Arterial blood [facility] by [employer]ulse [employer] Body mass index 44.66 kg/m2 44.66 kg/m2 [facility] (BMI) [Ratio] [employer] Body weight 128.368 kg 128.368 kg [facility] [employer] Body height 169.5 cm 169.5 cm [facility] [employer] Respiratory rate 12 /min 12 /min [facility] [employer] Body temperature 36.28 May 36.28 May [facility] [employer] Heart rate 68 /min 68 /min [facility] [employer] Diastolic blood 80 mm[Hg] 80 mm[Hg] [facility] Systolic blood 122 mm[Hg] 122 mm[Hg] [place] pressure [employer] Oxygen saturation 96 % 96 % [facility] in Arterial blood [employer] by Pulse oximetry [employer] Diastolic blood 53 mm[Hg] 53 mm[Hg] [facility] [employer] Systolic blood 107 mm[Hg] 107 mm[Hg] [place] pressure [employer] Respiratory rate 17 /min 17 /min [facility] [employer] Body temperature 37.11 May 37.11 May [facility] [employer] Heart rate 58 /min 58 /min Bon [employer] Body mass index 38.06 kg/m2 38.06 kg/m2 [facility] (BMI) [Ratio] [employer] Body weight 110.224 kg 110.224 kg [facility] Body height 170.2 cm 170.2 cm [facility] [employer] Oxygen saturation 98 % 98 % [facility] in Arterial blood [employer] by [employer]ulse [employer] Body mass index 37.71 kg/m2 37.71 kg/m2 [facility] (BMI) [Ratio] [employer] Body weight 108.41 kg 108.41 kg [facility] Body height 169.5 cm 169.5 cm [facility] [employer] Respiratory rate 16 /min 16 /min [facility] [employer] Body temperature 36.44 May 36.44 May [facility] Heart rate 74 /min 74 /min [facility] [employer] Diastolic blood 70 mm[Hg] 70 mm[Hg] [facility] Systolic blood 94 mm[Hg] 94 mm[Hg] [place] pressure [employer] Oxygen saturation 98 % 98 % [facility] in Arterial blood [facility] [employer] by [employer]ulse [employer] Respiratory rate 17 /min 17 /min [facility] [employer] Body temperature 36.33 May 36.33 May [facility] [employer] Heart rate 87 /min 87 /min [facility] [employer] Diastolic blood 75 mm[Hg] 75 mm[Hg] [facility] pressure [employer] Systolic blood 121 mm[Hg] 121 mm[Hg] [place] pressure [employer] Body mass index 39.94 kg/m2 39.94 kg/m2 [facility] (BMI) [Ratio] [facility] [employer] Body weight 108.863 kg 108.863 kg [facility] Measured [employer] [facility] Body height 165.1 cm 165.1 cm Bon [employer] [facility] Patient Treatment Plan of Care Planned Activity Planned Date Details Description Data Source (s) Propranolol Hydrochloride 01/08/2020 Francisco Javier [facility] 10 MG Oral Tablet 12:00:00 AM [employer] [facility] [employer] Clonazepam 0.5 MG Oral 12/25/2019 [facility] Tablet 12:00:00 AM EDT Health [employer] Ibuprofen 200 MG Oral 12/22/2019 [facility] Tablet 12:00:00 AM ED [employer] olanzapine 5 MG Oral Tablet 12/09/2019 [facility] 09:00:00 AM ED [employer] Olmesartan medoxomil 20 MG 12/09/2019 [facility] Oral Tablet 12:00:00 AM EDT [employer] olanzapine 5 MG Oral Tablet 12/09/2019 [facility] 12:00:00 AM EDT [employer] Losartan Potassium 50 MG 12/09/2019 [facility] Oral Tablet 12:00:00 AM EDT [employer] Clonazepam 0.5 MG Oral 12/08/2019 [facility] Tablet 12:00:00 AM EDT [employer] Risperidone 2 MG Oral 12/04/2019 [facility] Tablet 12:00:00 AM EDT [employer] [place] Carbonate 300 MG 11/30/2019 [facility] [...] Bela Release Oral Tablet 12:00:00 AM EDT [employer] [facility] [employer] Bisacodyl 5 MG Delayed 10/31/2019 [facility] Release Oral Tablet 01:50:17 PM EDT [employer] [facility] [employer] Acetaminophen 325 MG Oral 10/29/2019 Francisco Javier [facility] Tablet 02:44:40 PM EDT Health Syste m Inc sodium chloride (NS) flush 10/29/2019 [facility] 5-40 mL 11:01:53 AM EDT Health [employer] 24 HR Bupropion 10/17/2019 [facility] Hydrochloride 150 MG 12:00:00 AM EDT [employer] System [employer] Extended Release Oral Tablet 24 HR Bupropion 10/17/2019 [facility] Hydrochloride 300 MG 12:00:00 AM EDT [employer] [facility] [employer] Extended Release Oral Tablet Vraylar 3 mg capsule 09/03/2019 [facility] 12:00:00 AM EDT Health [facility] [employer] Amitriptyline Hydrochloride 08/20/2019 [facility] 150 MG Oral Tablet 12:00:00 AM [facility] C[place] Carbonate 150 MG 08/16/2019 [facility] Oral Capsule 12:00:00 AM EST [facility] Inc Prednisone 50 MG Oral 08/16/2019 [facility] Tablet 12:00:00 AM EST [email or web address] Cyclobenzaprine 07/21/2019 [facility] hydrochloride 10 MG Oral 12:00:00 AM EST [employer] [facility] [employer] Tablet Acetaminophen 325 MG / 07/21/2019 [facility] Oxycodone Hydrochloride 5 12:00:00 AM EST [employer] MG Oral Tablet VRAYLAR 6 mg capsule 07/07/2019 [facility] 12:00:00 AM EST [employer] Inc valacyclovir 1000 MG Oral 07/17/2018 Francisco Javier [facility] Tablet 12:00:00 AM EST Health [facility] Inc Risperidone 1 MG Oral 12/07/2017 [facility] Tablet 12:00:00 AM EDT Health [facility] Inc Alprazolam 1 MG Oral Tablet 12/07/2017 [facility] 12:00:00 AM EDT Health Sy[facility] Inc lamotrigine 25 MG Oral 12/07/2017 Bon S [email or web address] Tablet 12:00:00 AM EDT Health Sy[employer] Inc Clonazepam 2 MG Oral [facility]t [facility] System I nc cariprazine (Vraylar) 6 mg B on [employer] [facility] System I nc 24 HR Bupropion [facility] Bela Hydrochloride 300 MG Health System Inc Extended Release Oral Tablet fluoxetine HCl (PROZAC PO) [facility]c ziprasidone 80 MG Oral Bon [place] [facility] System I nc valacyclovir 500 MG Oral [facility] [employer] Tablet [Valtrex] Health Syst em Inc
[2020-03-19] MEDS ORDERED: KETAMINE HCL 500 MG/10 ML VIAL ONE (09:08)
[2020-03-19] MEDS ORDERED: PROPOFOL 20 ML ONE (09:24)
[2020-03-19] MEDS ORDERED: ONDANSETRON 4 MG/2 ML VIAL ONE (09:25)
[2020-03-19] MEDS ORDERED: KETOROLAC TROMETHAMINE 30 MG/1 ML VIAL ONE (09:25)
[2020-03-19 10:22] VITALS: TEMP 97.7
[2020-03-19 10:49] VITALS: BP 121/79; PULSE 79
== END 2020-03-19 10:45 | disposition home or self-care (01) ==
LOC: FECT 07:06
PROVIDERS: ATTEND Psychiatry & Neurology Psychiatry
PROC: GZB4ZZZ Other Electroconvulsive Therapy (ICD-10-PCS; principal; 2020-03-19 08:30)
DX: F32.9 Major depressive disorder, single episode, unspecified (principal)
CPT/HCPCS: 90870; 94760; U0003

== ENCOUNTER 2020-03-22 05:52 | Day surgery (SDC) | payer OTHER ==
--- OUTSIDE RECORDS SUMMARY | 2020-03-22 05:59 | XMS ---
:1970 Author Organization [facility] Care Team Providers Name Role Phone [...] by facilities licensed or operated by the [facility] Office of Mental Health; or Provided by the [facility] Office for People With Developmental Disabilities. If such information is present, then the following [facility] mandated warning applies: This information has [...] law may result in a fine or intermediate sentence or both. A general authorization for the release of medical or other information is NOT sufficient authorization for further disclosure. Encounters Encounter Providers Location Date Indications Data Source(s ) Outpatient 01/08/2020 03:30:00 [facility]a PM EDT - 01/12/2020 [facility] 10:23:35 AM EDT Patient discharged. Attender: MARIYA CATHERINE 01/01/2020 12:00:00 AM [facility] Attender: MAURICIO 12/30/2019 12:00:00 AM [facility] Attender: MARIYA CATHERINE 12/29/2019 12:00:00 AM [facility] 12[facility]2019 04:00:00 [facility] 06:48:40 [facility] PM EDT Patient discharged. OL 12/25/2019 [facility] 11:59:00 PM EDT Attender: MARIYA 12/25/2019 12:00:00 AM [facility] Attender: SUSI LONGO 12/25/2019 12:00:00 AM [facility] Attender: MAURICIO 12/24/2019 12:00:00 AM [facility] Attender: MARIYA 12/22/2019 12:00:00 AM [facility] Attender: SUSI LONGO 12/22/2019 12:00:00 AM [facility] Attender: MAURICIO 12/19/2019 12:00:00 AM [facility] Attender: MARIYA 12/18/2019 12:00:00 AM [facility] Attender: GLADIS FUNEZ 12/18/2019 12:00:00 AM [facility] Attender: SUSI LONGO 12/17/2019 12:00:00 AM [facility] Attender: MAURICIO 12/16/2019 12:00:00 AM [facility]ender: MARIYA 12/15/2019 12:00:00 AM [facility] Attender: XANDER COLBERT 12/13/2019 12:00:00 AM [facility] Outpatient 12/12/2019 12:00:00 PM Francisco Javier n [facility] EDT - 12/12/2019 [facility] 01:20:23 PM EDT Patient discharged. Attender: ROSSI 12/08/2019 05:55:36 [facility]02[facility]2020 [facility] 12:00:00 AM EDT System In c Inpatient Admitter: RITIKA 12/05/2019 12:00:00 [facility] AM [facility]T - 12/08/2019 [facility] 03:44:00 PM EDT General Weakness Patient discharged. Outpatient 12/05/2019 12:00:00 AM EDT [facility] Outpatient 12/01/2019 03:45:00 PM EDT - [facility] 12/01/2019 05:01:16 PM EDT Inc Patient discharged. Outpatient 11/14/2019 01:00:00 PM EDT - [facility] 11/18/2019 11:56:43 AM EDT System Inc Patient discharged. Outpatient 11/10/2019 09:00:00 AM EDT - [facility] 11/10/2019 04:44:05 PM EDT System Inc Patient discharged. Inpatient Admitter: RITIKA CANAS 10/29/2019 12:00:00 AM let hargic [facility] EDT - 11/03/2019 [facility] 04:02:00 PM EDT lethargic Patient discharged. Outpatient 09/15/2019 08:22:58 AM EDT [facility] - 09/15/2019 11:59:00 PM Hospital EDT Outpatient 09/10/2019 04:00:00 PM EDT [facility] Outpatient 09/04/2019 03:15:00 PM EDT [facility] Outpatient 08/19/2019 07:31:00 AM EST [facility] ([facility]) Outpatient 08/18/2019 06:35:00 AM EST [facility] ([facility]) Outpatient 08/17/2019 07:16:00 AM EST [facility]EXTGEN ([facility]) Emergency 08/16/2019 12:00:00 AM EST Shortness of Breath [facility] - 08/16/2019 10:45:00 PM Hospital EST Shortness of Breath Patient discharged. Outpatient 08/11/2019 12:05:00 AM EST [facility] Emergency 08/10/2019 12:00:00 AM EST - Chest P ain [facility] 08/11/2019 01:42:00 AM EST Hospital Chest Pain Patient discharged. Outpatient 07/21/2019 04:15:00 PM EST - [facility] 07/22/2019 10:51:43 AM EST System Inc Patient discharged. Immunizations Vaccine Date Status Description Data Source(s) New in 2012. 09/04/2019 completed Influenza 09/04/2019 [facility] IIV4 12:00:00 AM EDT Vaccine (Quad) [facility] IIV3. This is one 07/19/2018 completed Influenza 07/19/2018, [facility] of two codes 12:00:00 AM EST Vaccine 04/30/2014 Bela replacing CVX 15, He alth which is being [employer] retired. Influenza, 04/01/2016 completed Influenza 04/01/2016 [facility] injectable, MDCK, 12:00:00 AM EDT Vaccine (Quad) [facility] preservative [facility] quadrivalent Tdap 12/11/2014 completed Tdap 12/11/2014 [facility] 12:00:00 AM EDT [facility] [employer] [facility] IIV3. This is one 04/30/2014 completed Influenza 07/19/2018, [facility] of two codes 12:00:00 AM EST Vaccine 04/30/2014 Bela replacing CVX 15, He alth which is being [employer] retired. RAMAKRISHNA 06/12/2013 completed Influenza 06/12/2013 [facility] 12:00:00 AM EST Vaccine Moira ity (Trivalent) [facility] Medications Medication Brand Start Product Dose Route Administrative Pharmacy [facility] Indications Reaction Description Data Name Date Form Instructions Instructions Source(s) Propranolol propra 10 mg Oral active essential T stephanie 1 Tab Bon Hydrochlori noloL 2019 tremor by mouth S ecours de 10 MG (BETO 12:00: three (3) Ch arity Oral Tablet AL) 10 00 AM times maty [employer] [facility] propranoloL mg EDT Indications: System Inc [...] Tablet tablet 5 mg EDT dose (after [facility] OLANZapine last Health (ZyPREXA) modification) S ystem tablet 5 mg on [employer] 12/09/19 at 0900, Until Discontinued Medication [...] on Sun Bela OLANZapine mg 12/07/19 at [facility] (ZyPREXA) 1400, Until Sys tem tablet 2.5 Discontinued I nc mg Medication administered onsite [facility]aines lithium 12/07/2019 300 Oral active 300 mg , Oral, Bon Carbonate carbonate SR 02:00:00 PM mg 2 TIMES DAILY, [facility] 300 MG (LITHOBID) EDT First dose o n Bela Extended tablet 300 Sun 0 at [facility] Release Oral mg 1400, Until System Tablet Discontinued Inc lithium carbonate SR (LITHOBID) tablet 300 mg Medication administered onsite Losartan losartan 12/07/2019 50 Oral active 50 m g, Oral, Bon Potassium 50 (COZAAR) 01:00:00 PM mg D AILY, [facility] MG Oral tablet 50 EDT dose on Sun Bela Tablet mg 12/07/19 at [facility] losartan 1300, Until Syst em (COZAAR) Discontinued Inc tablet 50 mg Medication administered onsite furosemide 53237-542-49 12/07/2019 20 IntraVENous complete d 20 mg, [...] 12/13/19 at 0900 Medication administered onsite furosemide 07094-488-13 12/06/2019 20 IntraVENous complete d edema 20 [...] il mg Discontinued Medication administered onsite 0.9% 1251-1822-43 12/05/2019 100 IntraVENous aborted 100 mL/hr, at [...] mg tablet Inc Shared psychotic disorder (HCC) [facility] lithium 11/30/2019 aborted Bon Carbonate 300 carbonate [...] (DULCOLAX) 5 Inc mg EC tablet cariprazine 768324 11/01/2019 6 mg Oral active 6 m [...] t dose on Bela hydrocortisone 11/01/19 at [facility] (HYTONE) 2.5 % 1800, Unti l System ointment Discontinued Inc Medication administered onsite Docusate docusate 10/31/2019 200 Oral active 200 mg, Oral, Bon Sodium 100 sodium 02:00:00 PM mg DAILY , [facility] MG Oral (COLACE) EDT dose on Sun C harity Capsule capsule 200 10/31/19 at [facility] docusate mg 1400, Until Syst em [...] 5 mg EDT ONCE, 1 [facility] (HALDOL) dose, [facility] tablet 5 mg Denise System 10/30/19 [facility] at 2100 Medication administered onsite amitriptyline 10/30/2019 150 mg Oral active 1 50 mg, Oral, Bon (ELAVIL) tablet 09:00:00 PM EV AN BEDTIME, [facility] 150 mg EDT First dose on [facility] ity Denise 10/30/19 at [facility] 2100, Until System I nc Discontinued Medication administered onsite Haloperidol 2 haloperidoL 10/30/2019 2 mg Oral aborted 2 mg, Oral, Bon MG Oral (HALDOL) 08:01:20 PM EVERY 6 [facility] Tablet tablet 2 mg EDT HOURS Ch arity haloperidoL NEEDED, [facility] h (HALDOL) Starting Denise Sys tem tablet 2 mg 10/30/19 at [facility] 2000, Until 10/31/19 at 2043, Psychosis, Agitation Medication administered onsite [facility]aines lithium 10/30/2019 300 Oral active 300 mg , Oral, Bon Carbonate carbonate 12:00:00 PM mg 2 T IMES DAILY, [facility] 300 MG Oral tablet 300 EDT First d ose on Bela Tablet mg Denise 10/30/19 at [facility] lithium 1200, Until Syste m carbonate Discontinued In c tablet 300 mg Medication administered onsite Clonazepam 1 clonazePAM 10/30/2019 1 mg Oral active 1 mg, Oral, 2 Bon MG Oral (KlonoPIN) 12:00:00 PM TIME S DAILY, [facility] Tablet tablet 1 mg EDT First dose on [facility] clonazePAM [facility] 10/30/19 at [facility] (KlonoPIN) 1200, Until Sy stem tablet 1 mg Discontinued [facility] Medication administered onsite 0.9% 3236-7722-25 10/29/2019 100 IntraVENous aborted 100 mL/hr, at Bon sodium 02:55:00 PM mL/h 100 mL/hr, [facility] chloride EDT IntraVENous, Jagruti rity infusion CONTINUOUS, [facility] Starting Wed System 10/29/19 at [facility] 1455, Until 11/01/19 at 1446 Medication administered onsite 0.4 ML enoxaparin 10/29/2019 40 SubCUTAneous active 40 mg, Bon Enoxaparin (LOVENOX) 02:55:00 PM mg Gallardo bCUTAneous, [facility] sodium 100 injection 40 EDT EVERY 24 Bela MG/ML mg HOURS, [facility] Prefilled dose on Sun Sys tem Syringe 10/29/19 at [facility] enoxaparin 1455, Until (LOVENOX) Discontinued injection 40 mg Medication administered onsite Acetaminophen acetaminophen 10/29/2019 650 Oral active 650 mg, Oral, Bon 325 MG Oral (TYLENOL) 02:44:40 PM mg E VERY 4 HOURS [facility] Tablet tablet 650 mg EDT NEEDED , Bela acetaminophen Starting We [facility] (TYLENOL) 10/29/19 at [facility] tablet 650 mg 1444, Until Inc Discontinued, Mild Pain, Fever Medication administered onsite sodium 27728-390-02 10/29/2019 mL IntraVENous active 5-40 mL, Bon chloride 02:00:00 PM IntraVENo us, [facility] (NS) flush EDT EVERY 8 Charit y 5-40 mL HOURS, [facility] dose on Sun System 10/29/19 at Inc 1400, Until Discontinued Medication administered onsite sodium 17178-346-00 10/29/2019 mL IntraVENous active 5-40 mL, Bon [...] XL) 150 mg tablet Vraylar 3 mg 97810-481-21 09/03/2019 6 Oral aborted depre ssion Take [...] EST NOW, 1 Bela chewable tablet dose, [facility] 162 mg 08/16/19 System at 2103 Inc Medication administered onsite famotidine 08/16/2019 20 IntraVENous aborted 20 mg, Bon (PF) (PEPCID) 09:02:00 PM mg Intr aVENous, [facility] 20 mg in 0.9% EST EVERY 12 Ch arity sodium HOURS, [facility] chloride 10 dose on Sat S ystem mL injection 08/16/19 at [facility] 2102, Until Discontinued Medication administered onsite methylPREDNISolone 868007 08/16/2019 125 IntraVENous comple hyun 125 mg, Bon (PF) (Solu-MEDROL) 09:02:00 PM mg IntraVENous, [facility] injection 125 mg EST NOW, 1 d ose, Bela 08/16/19 Health at 2102 System Inc Medication administered onsite 0.9% 2221-2142-98 08/16/2019 1000 IntraVENous completed 1,000 mL, at [...] mg tablet for 3 System days. Inc Haines lithium 08/16/2019 2 Oral active Take 2 [...] back pain due to trauma VRAYLAR 6 64800-904-70 07/07/2019 6 mg Oral aborted Bipolar Take [...] System DAILY Inc NEEDED FOR ANXIETY cariprazine 918200 6 mg Oral aborted Take 6 B [...] [place] Inform ation relationship to boland [facility] [id number] [facility] [id number] [facility] [id number] [facility] HMO [id number] [facility] Commerical [id number] [facility] [id number] [facility] [id number] 900 HEALTH PLAN [facility] [id number] PLAN [facility] [id number] 900 HEALTH PLAN POLO [id number] POLO [id number] CIG[employer] O [id number] [facility] PPO [id number] [place] 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 [id number] COMPENSATION [facility] [id number] 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 [id number] COMPENSATION [facility] [id number] GENERIC [phone] [id number] COMMERCIAL [facility] [id number] PLAN [facility] GENERIC Commerical [id number] [facility] PPO [id number] PLAN [facility] [id number] PLAN 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 [id number] COMPENSATION [facility] [id number] [facility] PPO [id number] [place] [address] Problems, Conditions, and Diagnoses Code Display Name Description Problem Type Effective Data Dates Source(s) T88.7XXA Wud-iqlr-szyntzu Mar-xylv-cwijdrs [id number] 12/05/2019 Francisco Javier n [facility] adverse reaction to adverse reaction to 12:00:0 0 AM Bela medication medication [facility] [employer] [facility] T50.905A Adverse drug Adverse drug 22635211 12/05/2019 Kipling s reaction, initial reaction, initial 12:00:00 AM [facility] encounter encounter [facility] [employer] G93.40 Encephalopathy acute Encephalopathy acute [id number] 12/04 [facility] 12:00:00 AM Bela [employer] F31.4 Bipolar disorder Bipolar disorder [id number] 10/29/2019 Francisco Javier n [facility] with severe with severe 12:00:00 AM Bela depression depression [facility] [employer] E55.9 Vitamin D deficiency Vitamin D deficiency 64440776 09/03 [facility] 12:00:00 AM [facility] [employer] [facility] F41.8 Mixed anxiety and Mixed anxiety and [id number] 09/04/2019 [facility] depressive disorder depressive disorder 12:00:0 0 AM [employer] E66.01 Morbid obesity Morbid obesity 44969263 07/21/2019 [facility] 12:00:00 AM [email or web address] Z98.84 Status post gastric Status post gastric [id number] 020 [facility] bypass for obesity bypass for obesity 12:00:00 AM [email or web address] F32.9 Depressive disorder Depressive disorder 80195070 020 [facility] 12:00:00 AM [email or web address] F31.9 Bipolar disorder Bipolar disorder 03719677 07/21/2019 Francisco Javier n [facility] 12:00:00 AM [email or web address] F41.9 Anxiety Anxiety 85197751 07/21/2019 [facility] 12:00:00 AM [email or web address] F32.9 Depression Depression 02715211 07/20/2018 [facility] 12:00:00 AM [email or web address] E66.01 Severe obesity Severe obesity 38320620 07/19/2018 [facility] 12:00:00 AM [email or web address] [id number] Spells Spells 38001548 04/08/2016 [facility] 12:00:00 AM [employer] G40.909 Seizure disorder Seizure disorder 97793612 04/30/2014 Francisco Javier n [facility] 12:00:00 AM [email or web address] M79.2 Neuropathic pain of Neuropathic pain of 62482436 014 [facility] shoulder shoulder 12:00:00 AM [employer] G47.00 Insomnia Insomnia 24467192 11/04/2013 [facility] 12:00:00 AM [employer] Z98.84 H/O gastric bypass H/O gastric bypass 90044994 3 [facility] 12:00:00 AM [email or web address] G25.2 Other specified Other specified Diagnosis 01/08/2020 [facility] forms of tremor forms of tremor 03:17:29 PM [facility] [employer] F31.4 Bipolar disorder, Bipolar disorder, Diagnosis 12/25/2019 [facility] - current episode current episode 04:40:00 PM Goo d depressed, severe, depressed, severe, EDT Cheondoism without psychotic without psychotic Hospital features features F41.9 Anxiety disorder, Anxiety disorder, Diagnosis 12/25/2019 [facility] unspecified unspecified 04:04:24 PM [facility] R25.1 Tremor, unspecified Tremor, unspecified Diagnosis 020 [facility] 04:04:24 PM [facility] Z98.84 Bariatric surgery Bariatric surgery Diagnosis 12/25/2019 [facility] status status 04:04:24 PM [facility] T88.7XXA Unspecified adverse Unspecified adverse Diagnosis 020 [facility] - effect of drug or effect of drug or 11:10:37 AM Good medicament, initial medicament, initial [facility] encounter encounter Hospital G93.40 Encephalopathy, Encephalopathy, Diagnosis 12/05/2019 [facility] - unspecified unspecified 11:10:37 AM [facility] R41.82 Altered mental Altered mental Diagnosis 12/05/2019 [facility] - status, unspecified status, unspecified 11:10:3 7 AM [facility] F51.04 Psychophysiologic Psychophysiologic Diagnosis 11/14/2019 [facility] insomnia insomnia 01:22:52 PM [facility] F32.2 Major depressive Major depressive Diagnosis 09/15/2019 [facility] - disorder, single disorder, single 08:22:58 AM G ood episode, severe episode, severe EDT Aidan ritan without psychotic without psychotic Hospital features features F41.8 Other specified Other specified Diagnosis 09/04/2019 [facility] anxiety disorders anxiety disorders 03:49:01 PM [facility] F32.2 Major depressive Major depressive Diagnosis 09/04/2019 Francisco Javier n [facility] disorder, single disorder, single 03:49:01 PM C harity episode, severe episode, severe EDT Heal th without psychotic without psychotic System Inc features features Z23 Encounter for Encounter for Diagnosis 09/04/2019 [facility] immunization immunization 03:49:01 PM [facility] T78.40XA Allergy, Allergy, Diagnosis 08/16/2019 [facility] - unspecified, initial unspecified, initial 08:39 :16 PM Good encounter encounter [facility] R06.00 Dyspnea, unspecified Dyspnea, unspecified Diagnosis 08/10 [facility] - 11:27:27 PM [facility] F31.75 Bipolar disorder, in Bipolar disorder, in Diagnosis 07/21 [facility] partial remission, partial remission, 04:40:28 PM Bela most recent episode most recent episode EST Health depressed depressed [facility] [phone] essential tremor Diagnosis [facility] [id number] Bipolar disorder Diagnosis [facility] with severe [facility] depression ([facility]) [facility] [id number] Anxiety Diagnosis Bon [facility] [phone] hypertension Diagnosis Bon [facility] [phone] depression Diagnosis [facility] [phone] depression Diagnosis [facility] [phone] edema Diagnosis [facility] [phone] depression Diagnosis [facility] [phone] evangelina associated Diagnosis [facility] with bipolar [facility] 1255 1255 hypertension Diagnosis [facility] [id number] Anxiety Diagnosis Bon [facility] 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[facility] disorder (disorder) disorder ([facility]) [facility] 3762 [id number] depression Diagnosis [facility] associated with [facility] bipolar disorder [facility] [id number] Acute low back pain Diagnosis Bon [facility] due to trauma [facility] [id number] Acute low back pain Diagnosis [facility] due to trauma [facility] [id number] Bipolar disorder, in Diagnosis [facility] partial remission, Charit y most recent episode Healt h depressed ([facility]) System In c [id number] Herpes zoster Diagnosis [facility] cephalicus [facility] Surgeries/Procedures Procedure Description Date Indications Data Source(s) HC HC Routine 12/25/2019 Bipolar 12/25/2019 Bipolar Francisco Javier n LITHIUM LITHIUM 4:41 PM EDT disorder 04:41:00 PM disorde r [facility] with severe EDT with severe [facility] depression depression He alth ([facility]) ([facility]) System Inc Bipolar disorder with severe depression ([facility]) GLUCOSE, POC GLUCOSE, POC Routine 12/08/2019 12/08/2019 Bon 11:35 AM 11:35:00 AM Sec ours EDT EDT [facility] METABOLIC METABOLIC Routine 12/07/2019 12/07/2019 Bon PANEL, BASIC PANEL, BASIC 4:40 AM EDT 04:40:00 A M [facility] EEG 12-26 HR EEG 12-26 HR Routine 12/06/2019 12/06/2019 Bon W/VIDEO W/VIDEO 10:25 AM 10:25:08 AM [facility] HC LITHIUM Routine 12/06/2019 12/06/2019 Bon 4:25 AM EDT 04:25:00 AM [facility] HC LACTIC ACID HC LACTIC ACID STAT 12/05/2019 020 Bon 7:20 PM EDT 07:20:00 PM [facility] HC AMMONIA HC AMMONIA STAT 12/05/2019 12/05/2019 Bon 7:20 PM EDT 07:20:00 PM [facility] MRI BRAIN WO MRI BRAIN WO STAT 12/05/2019 12/05/2019 Bon CONT CONT 4:50 PM EDT 04:50:12 PM [facility] EEG 12-26 HR EEG 12-26 HR STAT 12/05/2019 12/05/2019 Bon W/VIDEO W/VIDEO 3:19 PM EDT 03:19:24 PM [facility] CULTURE, URINE CULTURE, URINE Routine 12/05/2019 020 Bon 2:45 PM EDT 02:45:00 PM [facility] URINALYSIS W/ URINALYSIS W/ STAT 12/05/2019 0 Bon RFLX RFLX 2:45 PM EDT 02:45:00 PM [facility] MICROSCOPIC MICROSCOPIC [facility] BILIRUBIN, BILIRUBIN, Routine 12/05/2019 12/05/2019 Bon CONFIRM CONFIRM 2:45 PM EDT 02:45:00 PM [facility] HC LACTIC ACID HC LACTIC ACID STAT 12/05/2019 020 Bon 12:40 PM 12:40:00 [facility] C[facility] HC CULTURE STAT 12/05/2019 12/05/2019 Bon BLOOD BLOOD 12:38 PM 12:38:00 PM Sec ours EDT EDT [facility] PROTHROMBIN PROTHROMBIN STAT 12/05/2019 12/05/2019 Bon TIME + INR TIME + INR 12:38 PM 12:38:00 PM [facility] EDT EDT [facility] CBC WITH CBC WITH STAT 12/05/2019 12/05/2019 Bon AUTOMATED DIFF AUTOMATED DIFF 12:38 PM 12:38:00 PM [facility] EDT EDT [facility] HC TROPONIN I HC TROPONIN I STAT 12/05/2019 0 Bon QUANT QUANT 12:38 PM 12:38:00 PM Sec ours EDT EDT [facility] METABOLIC METABOLIC STAT 12/05/2019 12/05/2019 Bon PANEL, PANEL, 12:38 PM 12:38:00 PM Sec ours COMPREHENSIVE COMPREHENSIVE EDT EDT [facility] MAGNESIUM MAGNESIUM STAT 12/05/2019 12/05/2019 Bon 12:38 PM 12:38:00 PM Sec ours EDT EDT [facility] HC LITHIUM HC LITHIUM STAT 12/05/2019 12/05/2019 Bon 12:38 PM 12:38:00 PM Sec ours EDT EDT [facility] CT HEAD WO CT HEAD WO STAT 12/05/2019 12/05/2019 Bon CONT CONT 12:30 PM 12:30:54 PM Sec ours EDT EDT [facility] HC CULTURE HC CULTURE STAT 12/05/2019 12/05/2019 Bon BLOOD BLOOD 12:30 PM 12:30:00 PM Sec ours EDT EDT [facility] XR PELV AP XR PELV AP STAT 12/05/2019 12/05/2019 Bon ONLY ONLY 12:14 PM 12:14:58 PM Sec ours EDT EDT [facility] XR CHEST PORT XR CHEST PORT STAT 12/05/2019 0 Bon 12:14 PM 12:14:51 PM Sec ours EDT EDT [facility] RT--OXYGEN RT--OXYGEN STAT 12/05/2019 12/05/2019 Bon CANNULA CANNULA 11:20 AM 11:20:37 AM [facility] EDT EDT [facility] [facility] EEG DIGITAL EEG DIGITAL Routine 12/05/2019 12/05/2019 Bon ANALYSIS ANALYSIS 11:10 AM 11:10:37 AM S [facility] EDT EDT [facility] CBC WITH CBC WITH STAT 10/30/2019 10/30/2019 Bon AUTOMATED DIFF AUTOMATED DIFF 6:40 AM EDT 06:40: 00 AM [facility] EDT [facility] METABOLIC METABOLIC STAT 10/30/2019 10/30/2019 Bon PANEL, BASIC PANEL, BASIC 6:40 AM EDT 06:40:00 A M [facility] EDT [facility] URINALYSIS W/ URINALYSIS W/ STAT 10/29/2019 0 Bon RFLX RFLX 6:34 PM EDT 06:34:00 PM [facility] MICROSCOPIC MICROSCOPIC EDT [facility] XR CHEST PORT XR CHEST PORT STAT 10/29/2019 0 Bon 12:09 PM 12:09:04 PM Sec ours EDT EDT [facility] CT HEAD WO CT HEAD WO STAT 10/29/2019 10/29/2019 Bon CONT CONT 11:47 AM 11:47:42 AM Sec ours EDT EDT [facility] HC GLUCOSE HC GLUCOSE Routine 10/29/2019 10/29/2019 Bon POCT POCT 11:26 AM 11:26:00 AM Sec ours EDT EDT [facility] PROTHROMBIN PROTHROMBIN STAT 10/29/2019 10/29/2019 Bon TIME + INR TIME + INR 10:45 AM 10:45:00 AM [facility] EDT EDT [facility] CBC WITH CBC WITH STAT 10/29/2019 10/29/2019 Bon AUTOMATED DIFF AUTOMATED DIFF 10:45 AM 10:45:00 AM [facility] EDT EDT [facility] HC PARTIAL HC PARTIAL STAT 10/29/2019 10/29/2019 Bon THROMBOPLASTIN THROMBOPLASTIN 10:45 AM 10:45:00 AM [facility] / PTT / PTT EDT EDT [facility] METABOLIC METABOLIC STAT 10/29/2019 10/29/2019 Bon PANEL, PANEL, 10:45 AM 10:45:00 AM Sec [facility] COMPREHENSIVE COMPREHENSIVE EDT EDT [facility] HC LITHIUM HC LITHIUM STAT 10/29/2019 10/29/2019 Bon 10:45 AM 10:45:00 AM Sec ours EDT EDT [facility] XR SPINE LUMB XR SPINE LUMB [...] n [facility] 9:00 PM EST 02:00:00 AM [facility] CBC WITH AUTOMATED CBC WITH STAT 08/16/2019 0 [facility] DIFF AUTOMATED DIFF 9:00 PM EST 02:00:00 AM [facility] TROPONIN I TROPONIN I STAT 08/16/2019 08/17/2019 [facility] 9:00 PM EST 02:00:00 AM [facility] METABOLIC PANEL, METABOLIC PANEL, STAT 08/16/2019 [facility] COMPREHENSIVE COMPREHENSIVE 9:00 PM EST 02:00:00 AM [facility] MAGNESIUM MAGNESIUM STAT 08/16/2019 08/17/2019 [facility] 9:00 PM EST 02:00:00 AM [facility] LITHIUM LITHIUM STAT 08/16/2019 08/17/2019 Francisco Javier n [facility] 9:00 PM EST 02:00:00 AM [facility] INFLUENZA A <td><content ID="[id number]">INFLUENZA A & B 07/26 Bon & B AG AG (RAPID 05:18:00 AM [facility] (RAPID TEST) TEST)</content></td><td>STAT</td><td>08/11/2019 [facility] 12:18 AM EST</td><td></td><td><paragraph Health styleCode="header">Results for this procedure are System in the <content Inc styleCode="[id number]">results section</content>.</paragraph></td> PROTHROMBIN PROTHROMBIN STAT 08/11/2019 08/11/2019 Bon TIME + INR TIME + INR 12:01 AM 05:01:00 AM [facility] D DIMER D DIMER STAT 08/11/2019 08/11/2019 Francisco Javier n 12:01 AM 05:01:00 AM Sec [facility] CBC WITH CBC WITH STAT 08/11/2019 08/11/2019 Bon AUTOMATED DIFF AUTOMATED DIFF 12:01 AM 05:01:00 AM [facility] PTT PTT STAT 08/11/2019 08/11/2019 Francisco Javier n 12:01 AM 05:01:00 AM Sec [facility] TROPONIN I TROPONIN I STAT 08/11/2019 08/11/2019 Bon 12:01 AM 05:01:00 AM Sec [facility] METABOLIC METABOLIC STAT 08/11/2019 08/11/2019 Bon PANEL, PANEL, 12:01 AM 05:01:00 AM Sec [facility] COMPREHENSIVE COMPREHENSIVE [facility] MAGNESIUM MAGNESIUM STAT 08/11/2019 08/11/2019 Bon 12:01 AM 05:01:00 AM Sec [facility] LITHIUM LITHIUM STAT 08/11/2019 08/11/2019 Francisco Javier n 12:01 AM 05:01:00 AM Sec [facility] LACTIC ACID LACTIC ACID STAT 08/11/2019 08/11/2019 Bon 12:01 AM 05:01:00 AM Sec [facility] BNP BNP STAT 08/11/2019 08/11/2019 Francisco Javier n 12:01 AM 05:01:00 AM Sec [facility] RT--OXYGEN RT--OXYGEN STAT 08/10/2019 08/11/2019 Bon CANNULA CANNULA 11:51 PM 04:51:27 AM Sec ours EST EST [facility] EKG, 12 LEAD, EKG, 12 LEAD, STAT 08/10/2019 0 Bon INITIAL INITIAL 10:14 PM 03:14:27 AM Sec [facility] EST EST [facility] XR SMALL BOWEL XR SMALL BOWEL Routine 08/02/2018 Morbid 019 Morbid Bon SERIES SERIES 11:01 AM obesity 04:01:14 PM obesity Sec [facility] EST (HCC) EST (HCC) [facility] Morbid obesity (HCC) CBC WITH AUTOMATED CBC WITH STAT 07/12/2018 9 [facility] DIFF AUTOMATED DIFF 12:40 AM EST 05:40:00 AM [facility] [employer] [facility] I nc TROPONIN I TROPONIN I STAT 07/12/2018 07/12/2018 [facility] 12:40 AM EST 05:40:00 AM [facility] [employer] [facility] I nc METABOLIC PANEL, METABOLIC PANEL, STAT 07/12/2018 [facility] COMPREHENSIVE COMPREHENSIVE 12:40 AM EST 05:40:0 0 AM [facility] [employer] [facility] I nc MAGNESIUM MAGNESIUM STAT 07/12/2018 07/12/2018 [facility] 12:40 AM EST 05:40:00 AM [facility] [employer] [facility] I nc RT--OXYGEN CANNULA RT--OXYGEN STAT 07/12/2018 019 [facility] CANNULA 12:21 AM EST 05:21:15 AM [facility] [employer] [facility] I nc Results ID Date Data Source [id number] 03/15/2020 10:30:00 AM EDT [facility] Name Value Range Interpretation Description Data Sup porting Code Source(s) Document(s ) SARS [facility] coronavirus 2 RNA This lab was ordered by [facility] and reported by [facility]. ID Date Data Source [id number] 03/12/2020 12:00:00 PM EDT [facility] Name Value Range Interpretation Description Data Sup porting Code Source(s) Document(s ) SARS [facility] coronavirus 2 RNA This lab was ordered by [facility] and reported by [facility]. ID Date Data Source [id number] 03/08/2020 10:18:00 AM EDT [facility] Name Value Range Interpretation Description Data Sup porting Code Source(s) Document(s ) SARS [facility] coronavirus 2 RNA This lab was ordered by [facility] moy [facility] and reported by [facility]. ID Date Data Source [id number] 03/04/2020 09:50:00 AM EDT [facility] Name Value Range Interpretation Description Data Sup porting Code Source(s) Document(s ) SARS [facility] coronavirus 2 RNA [facility] and reported by [facility]. ID Date Data Source [id number] 03/02/2020 12:15:00 PM EDT [facility] Name Value Range Interpretation Description Data Sup porting Code Source(s) Document(s ) SARS [facility] coronavirus 2 RNA This lab [facility] [place] [facility] and reported by [facility]. ID Date Data Source [id number] 02/27/2020 09:15:00 AM EDT [facility] Name Value Range Interpretation Description Data Sup porting Code Source(s) Document(s ) SARS [facility] coronavirus 2 RNA This lab was ordered by [facility] and reported by [facility]. ID Date Data Source [id number] 02/23/2020 11:40:00 AM EDT [facility] Name Value Range Interpretation Description Data Sup porting Code Source(s) Document(s ) SARS [facility] coronavirus 2 RNA This lab [facility] [place] [facility] and reported by [facility]. ID Date Data Source [id number] 02/19/2020 09:56:00 AM EDT [facility] Name Value Range Interpretation Description Data Sup porting Code Source(s) Document(s ) SARS [facility] coronavirus 2 RNA This lab [facility] [place] [facility] and reported by [facility]. ID Date Data Source [id number] 02/16/2020 08:40:00 AM EDT [facility] Name Value Range Interpretation Description Data Sup porting Code Source(s) Document(s ) SARS [facility] coronavirus 2 RNA This lab was [facility] [place] [facility] and reported by [facility]. ID Date Data Source [id number] 02/13/2020 10:05:00 AM EDT [facility] Name Value Range Interpretation Description Data Sup porting Code Source(s) Document(s ) SARS [facility] coronavirus 2 RNA This lab was ordered by [facility] and reported by [facility]. ID Date Data Source [id number] 02/09/2020 10:25:00 AM EDT [facility] Name Value Range Interpretation Description Data Sup porting Code Source(s) Document(s ) SARS [facility] coronavirus 2 RNA This lab was ordered by [facility] and reported by [facility]. ID Date Data Source [id number] 01/25/2020 09:20:00 AM EDT [facility] Name Value Range Interpretation Description Data Sup porting Code Source(s) Document(s ) 2019 Novel [facility] Coronavirus RNA Interpretation Unspecified Specimen Qualitative CATA Probe Detection This lab was ordered by [facility] and reported by [facility]. ID Date Data Source [id number] 12/25/2019 05:54:30 PM EDT [facility] Name Value Range Interpretation Description Data Sup porting Code Source(s) Document(s ) Haines 0.38 0.6-1.2 Below low normal [facility] [Moles/volu MMOL/L [facility]] in Hospital Serum or Plasma ID Date Data Source [id number] 12/23/2019 01:50:56 PM EDT [facility] Discharge SummaryPatient: Maxwell mackey Sex: male DOA: 12/05/2019Date of : 1970 A ge: 49 y.o. LOS: LOS: 3 daysAdmit Date: 12/05/2019Discharge Date: 12/08/2019 Admission Diagnoses: Encephalopathy acute [G93.40];Qfg-jqxe-guqoubv adversereactio n to medication [T88.7XXA];Tbu-qopf-chxgcwe adverse reaction tomedication [T88.7XXA] Discharge Diagnoses: #1 [...] ICD-10-CM: T50.905AICD -9-CM: E947.9 12/05/2019 - Present Gmq-dvig-rpjnfjg adverse reaction to med ication ICD-10-CM: T88.9TXDFLB-9-LJ: 995.20 12/05/2019 - Present Bipolar disorder wit [...] E66.01ICD-9-CM: 278.01 07/19/2018 - Present Spells ICD-10-CM: [id number]-8-HO: IMO00 01 04/08/2016 - Present Seizure disorder [...] Supporting Document(s ) ID Date Data Source [id number] 12/09/2019 02:14:04 PM EDT [facility] - [facility] referral made. Walker order faxed t o [facility], [facility] and [employer] do NOT acc ept pts insurance.Faxed to Moriah at [facility] at FAX [phone]. She reports they ne ed to get authfor walker. Have instucted pt to buy own walker IF not authorized.He i s agreeable to buying walker if needs to.Care Management InterventionsPCP Verified by CM: YesTransition of Care Consult (CM Consult): [facility] Home Car e: YesCurrent Support Network: Own Home, Lives with SpouseThe Patient and/or Prachi ent Clothing Room Supervisor was Provided with a Choice of Providerand Agrees with the Discharge Plan?: YesFreedom of Choice List was Provided with Basic Dialogue that Suppor ts thePatient's Individualized Plan of Care/Goals, Treatment Preferences and Sh aresthe Quality Data Associated with the Providers?: YesVeteran Resource Informat ion Provided?: RefusedDischarge LocationDischarge Placement: Home [facility] BY [facility])Pt is discharged , picking him up. reports she has phone number timbo pt a follow up psych appt. [facility] to visit. will buy walker [...] Value Range Interpretation Code Description [facility] Supporting Document(s ) ID Date Data Source [id number] 12/08/2019 03:06:17 PM EDT [facility] I have reviewed discharge instructions w ith the patient. The patient verbalizedunderstanding.Discussed with t he patient and all questioned fully answered. He will call me ifany problems arise.If you experience chest pain call [address] yourself.Patient armband removed a nd shredded. IV removed and discharged home stable. Name Value Range Interpretation Code Description Data [facility] Supporting Document(s ) ID Date Data Source [id number] 12/08/2019 03:02:56 PM EDT [facility] Per your note, pt with acute encephalopa thy and toxic Serum Haines level.Please specify the type of encephalopathy in yo ur progress notes: Toxic encephalopathy due to lithium Metabolic encephalopathy due to Other cause (please specify) Clinically unable to determine UnknownPLEASE DOCUM ENT ANY ADDITIONAL DIAGNOSES AND/OR SPECIFICITY IN THE PROGRESSNOTES AND/OR DISCHARGE SUMMARY. Name Value Range Interpretation Code Description Data [facility] Supporting Document(s ) ID Date Data Source [id number] 12/08/2019 02:40:45 PM EDT [facility] Problem: SuicideGoal: *STG: Remains safe in hospital12/08/2019 [...] Ru Mosher: Progressing Towards GoalGoal: *LTG: Identifies [employer]12/08/2019 1440 by Ru Mosher: Resolved/Met12/08/2019 1439 by [...] [facility]2019 1440 by Divya Mosher: Resolved/MetNote: Fall Risk [...] Document Harsh Scale and appropriate interventions in [facility].12/08/2019 1440 by Ru Mosher: Resolved/MetNote: Pressure Injury [...] Supporting Document(s ) ID Date Data Source [id number] 12/08/2019 02:40:17 PM EDT [facility] Problem: SuicideGoal: *STG: Remains safe in hospitalOutcome: [...] Fall R isk and appropriate interventions in [facility].Outcome: Progressing Toward s GoalNote: Fall Risk Interventions:Mobility [...] Document Harsh Scale and appropriate [facility].Outcome: P rogressing Towards GoalNote: Pressure Injury Interventions:Sensory [...] Supporting Document(s ) ID Date Data Source [id number] 12/08/2019 01:18:54 PM EDT [facility] Daily Progress NoteAdmit Date: Hospital day: .tdSubjective:Psycgm Neuro,and PT assessments reviewed. Patie nt qualifies for discharge. Wifecalled, will bring in clothes. New medical regimen di scussed with the . Willneed Haines level later this week.Current Facility-Adminis tered MedicationsMedication [...] past 8 hrs: BP Temp Pulse Resp FtA32412/07 0816 - - - - 96 %12/08/19 [...] initial encounter (12/05/2019)Active Problems: Encephalopathy acute (12/05/2019) Hsd-wdmk-wangfbq adve rse reaction to medication (12/05/2019)Plan: day of discharge. Name Value Range Interpretation Code Description Data Melani rce(s) Supporting Document(s ) ID Date Data Source [id number] 12/08/2019 12:09:30 PM EDT [facility] Problem: Mobility Impaired (Adult and Pe diatric)Goal: [...] y.o. male)Date: 12/08/2019Primary Diagnosis: E ncephalopathy acute [G93.40]Evc-idri-clmhbil adverse reaction to medication [T88.7XXA ]Mai-ytgj-vwdsrrz adverse reaction to medication [T88.7XXA]Precautions: Fall ASSESSMENT [...] morbidi ty or mortality cardiac cath at [facility] approx 6-8 months ago Other [...] NoneCritical Beh avior:Neurologic State: AlertOrientation Level: Oriented Z4Kipmhjnbd: Appropriate for age attention/concentration;Follows commandsSafety/Judgement: Decreased awar [...] Supporting Document(s ) ID Date Data Source [id number] 12/08/2019 11:48:26 AM EDT [facility] Name Value Range Interpretation Description Data Sup porting Code Source(s) Document(s ) Glucose 132 MG/DL 65-110 Above high normal [facility] [Mass/volume] [facility] in Blood by [facility] Automated test strip ID Date Data Source [id number] 12/08/2019 10:35:45 AM EDT [facility] S/O Patient has shown improvement. He re ports that medications are helping him.He denies any side effectsHe denies any cecilia cidal thoughtsHe reports that he sees a psychiatrist [facility] 300 mg bid Haines level in two days Will increase Zyprexa 5 mg Will follow up as requested Name Value Range Interpretation Code Description Data [facility] rce(s) Supporting Document(s ) ID Date Data Source [id number] 12/08/2019 07:28:52 AM EDT [facility] Bedside and Verbal shift change report g iven to Xavi, SUSI (oncoming nurse) Annalise DE LEON, SUSI (offgoing nurse). Repor t included the followinginformation SBAR, Kardex, MAR and Recent Results. Name Value Range Interpretation Code Description Data [facility] rce(s) Supporting Document(s ) ID Date Data Source [id number] 12/07/2019 08:26:02 PM EDT [facility] Problem: Falls - Risk ofGoal: *Absence o [...] ofGoal: *Preventi on of pressure injuryDescription: Document Harhs Scale and appropriate interventio ns in theflowsheet.Outcome: [...] Supporting Document(s ) ID Date Data Source [id number] 12/07/2019 07:05:28 PM EDT [facility] Verbal shift change report given to Chandrakant Cox RN (oncoming nurse) by Steven Villalobos RN (offgoing nurse). Report inc luded the following information SBAR, Kardex,Intake/Output, MAR, Recent Result s and Cardiac Rhythm on telemetry. Name Value Range Interpretation Code Description Data [facility] rce(s) Supporting Document(s ) ID Date Data Source [id number] 12/07/2019 01:30:56 PM EDT [facility] Trent Jacob MD[address] [place] [address] [id number].[employer] Progress NotePatient: Maxwell Bray Sex: male DOA: [...] (LOVENOX) injection 40 mg 40 mg SubCUTAneous I19CMwdaecbzg:Visit VitalsBP 153/85 (BP 1 Location: Left arm, BP Prachi ent Position: At rest)Pulse 96Temp 98.7 F (37.1 C)Resp 20Ht 5' 5.75" (1.67 m)Wt 3 01 lb 1.6 oz (136.6 kg)SpO2 96%BMI 48.97 kg/m Body mass index is 48.97 kg/m .Patient V itals for the past 24 hrs: Temp Pulse Resp BP ImI64312/07/19 1249 - 96 - 153/85 - 0 [...] shoulder M79.2 Seizure disorder (HCC) G40.909 Spells [id number] Severe obesity (HCC) E66.01 Depression F32.9 Anxiety F41.9 Bipolar disorder (HCC) F31.9 Depressive disorder F32.9 Status post g astric bypass for obesity Z98.84 Morbid obesity (HCC) E66.01 Mixed anxiety and depressive disorder F41.8 Vitamin D deficiency E55.9 Bipolar disorder with severe depression (HCC) F31.4 Encephalopathy acute G93.40 Adverse drug reaction, ini tial encounter T50.905A Imp-ranf-vpnhncn adverse reaction to medication T88.7XXA 49 year [...] Supporting Document(s ) ID Date Data Source [id number] 12/07/2019 01:02:36 PM EDT [facility] Pt seen and discussed with Dr Canas .Pt is tearful flat and denies any suicidal thoughts , has been depressed withlithiu m on hold , No Vraylar and he is unable to get [facility] E[facility] And no w will be with [facility] with Dr Womack his lithium level is un therape utic range I will start on lithium , add 2.5mg of zyprexa and lower his klonopin And increase his elavil to 200 mg HSWill get pt followed up with Psychiatry Name Value Range Interpretation Code Description Data Melani rce(s) Supporting Document(s ) ID Date Data Source [id number] 12/07/2019 12:52:32 PM EDT [facility] Problem: Fluid Volume - Risk of, Imbalan cedGoal: *Balanced intake and outputOutcome: Progressing Towards GoalProblem: Patient Education: Go to Patient Education ActivityGoal: Patient/Family EducationOu tcome: Progressing Towards Goal Name Value Range Interpretation Code Description Data Mel[facility] rce(s) Supporting Document(s ) ID Date Data Source [id number] 12/07/2019 12:45:20 PM EDT [facility] Problem: Falls - Risk ofGoal: *Absence o [...] Supporting Document(s ) ID Date Data Source [id number] 12/07/2019 12:24:47 PM EDT [facility] Daily Progress NoteAdmit Date: Hospital [...] injection 40 mg 40 mg SubCUTA neous Z08ESffztfnyu:Patient Vitals for the past 8 hrs: BP Temp Pulse Resp IlR91112/06 0956 147/86 98.7 F (37.1 C) 95 [...] initial encounter (12/05/2019)Active Problems: Encephalopathy acute (12/05/2019) Okm-nlyq-vpuystz adve rse reaction to medication (12/05/2019)Plan:To increase activity, diet,klonopin. Start Losartan Name Value Range Interpretation Code Description Data Melani rce(s) Supporting Document(s ) ID Date Data Source [id number] 12/07/2019 10:13:28 AM EDT [facility] LT EEG supervisor bit and shank department DC'd per Dr. Jacob. Name Value Range Interpretation Code Description Data Melani rce(s) Supporting Document(s ) ID Date Data Source [id number] 12/07/2019 10:08:27 AM EDT [facility] [place] [address] [place], [place] [address]PHEIDKQ: MAXWELL BRAYMRN: [id number]: [id number]#: [id number] DATE: 12/05/2019LONG TERM MONITORING VIDEO POLICY OFFICER: Riky Rodriguez HISTORY: The patient is a [...] montages. Digital analysis was performed employing an [employer] [facility] neuralnetwork program with parameterization and statistical analysi [...] seen, that attenuates with eye opening.There was jfpy-ei-memgnyfl gener alized background slowing.There was no clear focal slowing.ACTIVATION TECHNIQUES: Ph otic stimulation and hyperventilation were notperformed.SLEEP: During drowsiness, there is mild attenuation and slowing of thebackground rhythm. There was normal sleep seen including symmetric vertexwaves, sleep spindles, and K-complexes.OTHER AC TIVITY: There were no clear epileptiform discharges and no seizures orclinical ev ents recorded.DIGITAL ANALYSIS: Variable spectral pattern without significant lef d-sn-vfdvwiveyrefwzny. Spikes were artifact in nature.DECEMBER 06 DAILY [...] the awake and asleep states due to hbie-wb-zpxwgmmj diffuse cerebraldysfunc tion that improves to mild over the course of the recording. TRENT JACOB, MDDD: #12/06/2019 10:21:35/SS /[id number]_i/[id number]_pJob #: [id number] / [id number] Name Value Range Interpretation Code Description Data [facility](s) Supporting Document(s ) ID Date Data Source [id number] 12/07/2019 07:45:20 AM EDT [facility] Bedside and Verbal shift change report cristi Dove RN (3Loria) (oncomingnurse) by Vy Green RN (offgoing nurse). Report included the following information SBAR, Kardex, MARand Recent Results. Name Value Range Interpretation Code Description Data [facility](s) Supporting Document(s ) ID Date Data Source [id number] 12/07/2019 07:22:41 AM EDT [facility] All leads and head wrapping intact. Day 2 LTM complete. Awaiting instructions tocontinue for day 3 or DC. Name Value Range Interpretation Code Description Data [facility](s) Supporting Document(s ) ID Date Data Source [id number] 12/07/2019 05:19:11 AM EDT [facility] Name Value Range Interpretation Description Data Sup porting Code Source(s) Document(s ) Sodium 138 136-145 [facility] [Moles/volume] mmol/L [facility] in Serum or Hospital Plasma Potassium 3.5 3.5-5.1 [facility] [Moles/volume] mmol/L [facility] in Serum or Hospital Plasma Chloride 106 98-107 [facility] [Moles/volume] mmol/L [facility] in Serum or Hospital Plasma Carbon 27 21-32 [facility] dioxide, total mmol/L [facility] [Moles/volume] Hospital in Serum or Plasma Anion gap in 10 10-20 [facility] Serum or mmol/L [facility] Plasma Hospital Glucose 140 74-106 Above high normal [facility] [Mass/volume] mg/dL [facility] in Serum or Hospital Plasma Urea nitrogen 19 mg/dL 7-18 Above high normal [facility] [Mass/volume] [facility] in Serum or Hospital Plasma Creatinine 0.94 0.70-1.3 [facility] [Mass/volume] mg/dL 0 [facility] in Serum or Hospital Plasma Glomerular >60 [facility] filtration [facility] rate/1.73 sq M Hospital predicted among blacks [Volume Rate/Area] in Serum or Plasma by Creatinine-bas ed formula (MDRD) Glomerular >60 [facility] rate/1.73 sq M Hospital predicted among non-blacks [Volume Rate/Area] in Serum or Plasma by Creatinine-bas ed formula (MDRD) (NOTE)Estimated GFR is calculated using the Modification of Diet in RenalDisease (MDRD) Study equation, reported for both Americans(GFRAA) and non- Americans (GFRNA), and normalized to 1.7 8k2ixvu surface area. The physician must decide which [...] Serum 9.1 mg/dL 8.5-10.1 [facility] or [facility] ID Date Data Source [id number] 12/06/2019 08:12:24 PM EDT [facility] Bedside and Verbal shift change report cristi Loyd RN (oncoming nurse) Estephania Wakefield RN (offgoing nurse). Report included the followinginformation SBAR, Kardex, MAR, Recent Results, and Med Rec Status. Name Value Range Interpretation Code Description Data Melani rce(s) Supporting Document(s ) ID Date Data Source [id number] 12/06/2019 04:57:12 PM EDT [facility] Daily Progress NoteAdmit Date: Hospital day: [...] (LOVENOX) injection 40 mg 40 mg SubCUTAneous F32FFrnzqbsfg:Patient Vi tals for the past 8 hrs: BP Temp Pulse Resp LtW26812/06/19 1547 (!) 164/100 99.6 F (3 7.6 [...] Time: 12/06/19 4:25 AMResult Value Ref Range Haines level 1.09 0.6 - 1.2 MMOL/L Xr [...] initial encounter (12/05/2019)Active Problems: Encephalopathy acute (12/05/2019) Xix-elhy-tcvgtxm adve rse reaction to medication (12/05/2019)Plan:To reduce iv fluids, repeat lasix Name Value Range Interpretation Code Description Data Mealni rce(s) Supporting Document(s ) ID Date Data Source [id number] 12/06/2019 04:14:48 PM EDT [facility] Consult NoteSubjective:Patien t: Maxwell Bray Age: [...] of morbidity or mortality cardiac cath at [facility] approx 6-8 months ago Other unknown and unspecified cause of morbidity or mortal ity concussions Other unknown and unspecified cause of morbidity or mortal ity "periodic disorientation" Other unknown and unspecified cause of morbidity or mo rtality anxiety Psychiatric disorder anxiety, depressionPsychiatric History: Patient reported he was receiving care in outpatient from [facility] psychiatrist t did not discuss details.Substance Use History:Social HistorySubstance and Sexu al ActivityAlcohol Use No Frequency: Never Drinks per session: 1 or 2 Binge freque ncy: NeverSocial HistorySubstance and Sexual ActivityDrug Use NoObjective:Vitals/Phys ical Assessment:Patient Vitals for the past 8 hrs: BP Temp Pulse Resp YtY04712/06/19 081 3 (!) 153/94 100.4 F (38 [...] encounter (12/05/2019)A ctive Problems: Encephalopathy acute (12/05/2019) Ifh-rdgr-gvbdhrj adverse re action to medication (12/05/2019)Plan:No current [...] Supporting Document(s ) ID Date Data Source [id number] 12/06/2019 01:18:16 PM EDT [facility] Trent Jacob MD[address], [address] [place] [address] [phone] Progress NotePatient: Maxwell Bray Sex: male DOA: 12/05/2019Date of : 1970 Age: 49 y.o. LOS: LOS: 1 daySubjective:Awake, alert, tremulous, no current complaintsEEG w/ mild to mod gen slowREVIEW OF SYSTEMS: NO CP, SOB, N,V,D, F,CCurrent Facility-Administered MedicationsMedication Dose Route Frequen cy 0.9% sodium chloride infusion 125 mL/hr IntraVENous CONTINUOUS enoxaparin (LOVE NOX) injection 40 mg 40 mg SubCUTAneous I78MArkutclbl:Visit VitalsBP (!) 153/94 (BP 1 Location: Left arm, BP Patient Position: At rest)Pulse 100Temp 100.4 F (38 C)Resp 18Ht 5' 5.75" (1.67 m)Wt 300 lb (136.1 kg)SpO2 96%BMI 48.79 kg/m Body mass index is 48.79 kg/m .Patient Vitals for the past 24 hrs: Temp Pulse Resp BP [id number] 0813 100.4 F (38 C) 100 18 [...] past 24 hours were reviewed both during [facility] daily workflow process and at the time notated as "note time" in [facility]. (It is not time stamped separately [...] Time: 12/06/19 4:25 AMResult Value Ref Range Haines level 1.09 0.6 - 1.2 MMOL/LCT Results (most recent):Results from [facility] encounter on 12/05/19CT HEAD WO CONT [...] the brain.MRI Results (most recent):Results from [facility] encounter on 12/05/19MRI BRAIN WO CONT [...] hic pain of shoulder M79.2 Seizure disorder ([facility]) G40.909 Spells [id number] Severe ob esity ([facility]) E66.01 Depression F32.9 Anxiety F41.9 Bipolar disorder ([facility]) F31.9 Dep ressive disorder F32.9 Status post gastric bypass for obesity Z98.84 Morbid obesit y ([facility]) E66.01 Mixed anxiety and depressive disorder F41.8 Vitamin D deficiency E55 .9 Bipolar disorder with severe depression ([facility]) F31.4 Encephalopathy acute G93.40 Adverse drug reaction, initial encounter T50.905A Vlv-stho-dimuduq adverse react ion to medication T88.7XXA49 year [...] Name Value Range Interpretation Code Description Data [facility] rce(s) Supporting Document(s ) ID Date Data Source [id number] 12/06/2019 11:43:34 AM EDT [facility] LTM study day 1 complete. All leads and head wrapping intact. Day 2 LTM studycommenced and LIVE via WIFI on [facility]. 06/28 Name Value Range Interpretation Code Description Data [facility] rce(s) Supporting Document(s ) ID Date Data Source [id number] 12/06/2019 10:48:32 AM EDT [facility] Care Management InterventionsPCP Verifie d by CM: YesCurrent Support Network: Own Home, Lives with SpouseThe Patient and/o r Patient Clothing Room Supervisor was Provided with a Choice of Providerand Agrees with the Betty rose Plan?: YesFreedom of Choice List was Provided with Basic Dialogue that Suppor ts thePatient's Individualized Plan of Care/Goals, Treatment Preferences and Sh aresthe Quality Data Associated with the Providers?: YesVeteran Resource Informat ion Provided?: RefusedDischarge LocationDischarge Placement: HomeCASE PAM LORENZ PSYCHOSOCIAL ASSESSMENTMaxwell Mendieta Asa Admission Marlon e: 12/05/2019MRN: [id number] of : 1970Current date: 12/06/2019 DISCHARGE PLAN: Patient is a 49 year old male admitted to [facility]. CM attempted toreach hi m via [...] NoPCP: Ritika Canas MDAdmitting Provider: Ritika lobo MDCEN[facility] WORKOUT OFFICER: N/APayor: P ayor: [facility] HEALTH PLAN / Plan: [facility] /Product Type: [facility]Secondary Payor : @[facility]ITALINSGROUPNAME@Encephalopathy acute [G93.40]Wpd-ozim-jwcwvxf adverse reactio n to medication [T88.7XXA]Jmt-enrh-srbvldb adverse reaction to medication [T88.7XXA ]Patient Active Problem ListDiagnosis Code H/O gastric bypass Z98.84 Insomnia G47. 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 Seizure disorder (HCC) G40.909 Spells I [id number] Severe obesity ([facility]) E66.01 Depression F32.9 Anxiety F41.9 Bipolar disorder (HCC) F31.9 Depressive disorder F32.9 Status post gastric bypass for ob esity Z98.84 Morbid obesity (HCC) E66.01 Mixed anxiety and depressive disorder F4 1.8 Vitamin D deficiency E55.9 Bipolar disorder with severe depression ([facility]) F3 1.4 Encephalopathy acute G93.40 Adverse drug reaction, initial encounter T50.905 A Uwc-cvob-mfduowl adverse reaction to medication T88.7XXASocial HistorySubstan ce [...] Supporting Document(s ) ID Date Data Source [id number] 12/06/2019 07:40:06 AM EDT [facility] 1938: Patient found in bed resting quiet [...] Supporting Document(s ) ID Date Data Source [id number] 12/06/2019 05:07:27 AM EDT [facility] Name Value Range Interpretation Description Data Sup porting Code Source(s) Document(s ) Haines 1.09 0.6-1.2 [facility] - Good [Moles/volu MMOL/L [facility]ondoism me] in Hospital Serum or Plasma ID Date Data Source [id number] 12/05/2019 07:59:09 PM EDT [facility] Name Value Range Interpretation Description Data Sup porting Code Source(s) Document(s ) Ammonia 16 UMOL/L 11-32 [facility] - Good [Moles/volum Cheondoism e] in Plasma Hospital ID Date Data Source [id number] 12/05/2019 07:56:38 PM EDT [facility] Name Value Range Interpretation Description Data Sup porting Code Source(s) Document(s ) Lactate 0.9 0.4-2.0 [facility] - Good [Moles/volu MMOL/L [facility]ondoism me] in Hospital Serum or Plasma ID Date Data Source [id number] 12/05/2019 06:42:57 PM EDT [facility] 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 Day 1 LTM comm enced and LIVE via WIFI on [facility] 06/28 Name Value Range Interpretation Code Description Data Melani rce(s) Supporting Document(s ) ID Date Data Source [id number] 12/05/2019 06:07:34 PM EDT [facility] [id number] [employer] [facility] [address] [place] [address] [phone] Maxwell Bray (Male) [id number] I 3 ED Dispo:ADMIT Chief Complaint: Fall, Fatigue Diagnosis: Altered mental status, unspecified altered mental status type [] Adverse drug reaction, initial encounter [] Encephalopathy acute [] Gjj-sbxr-ncnbuki adverse effect of medication, subsequent encounter [] Bipolar disorder with severe depression (HCC) [] H/O gastric bypass [] Curre nt Providers: Attending: Patsy Manzo; Kristy Otero; Cristi Canas Consulting Provider: Jose Centeno; Cristi Canas; Javier Khan; Cristi Frazier Primary Nurse: BAILEY GambleN: [id number] [phone] [id number] [employer] [id number] - [facility] Ed Medva MrnMRN: [id number] [employer] [id number] - [facility] Medva Age SexDOB 1970 AGE 49 SEX Male Primary Care Provider: Ritika Canas MD Phone: Allergies: (No Known Allergies)Date Reviewed: 12/05/2019Reviewed by: Ritika Canas MD - Review CompleteED Provider Notes: All notesHNO ID: [id number]: Julio Manzo MDService: EMERGENCYAuthor Type: Physici anFiled: [...] of morbidity or mortality cardiac cath at [facility] approx 6-8 months ag o Other [...] week Gets together: Once a week Attends pentecostalism service: More than 4 times per year [...] Calculation (Bez et) 515 ms Calculated P [place] 40 degrees Calculated R [place] 41 degrees Calculated T [place] 147 degrees Diagnosis Sinus tachycardiaProbable left atrial [...] Time: 12/05/19 12:38 PMResult Value Ref Range Haines level 1 .53 (HH) 0.6 - 1.2 MMOL/LLACTIC ACID Collection Time: 12/05/19 12:40 PMResult Value Ref Range Lactic acid 1.1 0.4 - 2.0 MMOL/LEKG:Sinus tachycardia at 100 BPM, normal axis, nothing acute.Interpreted by Julio Manzo MD11:20 AM cardiac technologist reading shows sinus tachycardia at 100 BPM.Interpreted [...] mental status, unspecified altered mental status type R41.33810.97Patient c ondition at time of disposition: StableI [...] reviewed thediagnostic studies, unless otherwise noted.+ED Orde [id number] CORONER/MEDICAL EXAMINER - ED ONLY [#[id number]] Priority: STAT Class: Hospital Performe d Standing Order Information Remaining Occurrences:0/1 Interval:Continuous Last release d:12/05/2019 Released orders: SunDec 05, 2019 11:20 AM by: JULIO MANZO Type: -> Bedside N [id number] PULSE OXIMETRY CONTINUOUS [#[id number]] Priority: STAT Class: Hospital Performe d Standing Order Information Remaining Occurrences:0/1 Interval:CONTINUOUS Last release d:12/05/2019 Released orders: SunDec 05, 2019 11:20 AM by: JULIO MANZO [id number] PULSE OXIMETRY SPOT CHECK [#[id number]] Priority: STAT Class: Hospital Performed Standing Order Inf ormation Remaining Occurrences:0/1 Interval:ONE TIME Last released:12/05/2019 Release d orders: SunDec 05, 2019 11:20 AM by: JULIO MANZO [id number] OBTAIN OLD EKG [ #[id number]] Priority: Routine Class: Hospital Performed Standing Order Information Remainin g Occurrences:0/1 Interval:ONE TIME Last released:12/05/2019 Released orders : SunDec 05, 2019 11:20 AM by: JULIO MANZO [id number] CORONER/MEDICAL EXAMINER - ED ONLY [# [id number]] Priority: STAT Class: Hospital Performed Type: -> Bedside Released on: 12/05/2019 11:20 AM [id number] PULSE OXIMETRY CONTINUOUS [#[id number]] Priority: STAT Class: Hospital Performe d Released on: 12/05/2019 11:20 AM [id number] PULSE OXIMETRY SPOT CHECK [#[id number]] Priori ty: STAT Class: Hospital Performed Released on: 12/05/2019 11:20 AM [id number] OBTAIN OLD EKG [#[id number]] Priority: STAT Class: Hospital Performed Released on: 12/05/2019 11:20 AM [id number] VITAL SIGNS PER UNIT ROUTINE [#[id number]] Priority: STAT Class: Hospital Performed Stand ing Order Information Remaining Occurrences:0/1 Interval:CONTINUOUS Last released :12/05/2019 Released orders: SunDec 05, 2019 2:41 PM by: RITIKA CANAS Comment:More frequent ly if Indicated. [id number] BEDREST, COMPLETE [#[id number]] Priority: STAT Class: H ospital Performed Standing Order Information Remaining Occurrences:0/1 Interval:CONTIN UOUS Last released:12/05/2019 Released orders: SunDec 05, 2019 2:41 PM by: RITIKA CANAS [id number] NOTIFY PROVIDER: VITAL SIGNS CHANGES [#[id number]] Priority: STAT Class: Hospital Performe d Standing [...] Less than 120 ml in 4 hours [id number] APPLY/MAINTAIN SEQUENTIAL COMPRESSIO* [# [id number]] Priority: STAT Class: Hospital Performed Standing Order Information Remaining Occurre nces:0/1 Interval:CONTINUOUS Last released:12/05/2019 Released orders: SunDec 05, 2019 2:41 PM by: RITIKA CANAS [id number] VITAL SIGNS PER UNIT ROUTINE [#[id number]] Priorit y: STAT Class: Hospital Performed Comment:More frequently if Indicated. Released on: 12/05/2019 2 :41 PM [id number] BEDREST, COMPLETE [#[id number]] Priority: STAT Class: Hospital Performe d Released on: 12/05/2019 2:41 PM [id number] NOTIFY PROVIDER: VITAL SIGNS CHANGES [#[id number]] Priority: STAT Class: Hospital Performed Temp -> [...] carmen rs Released on: 12/05/2019 2:41 PM [id number] APPLY/MAINTAIN SEQUENTIAL COMPRESSIO* [#[id number]] P riority: STAT Class: Hospital Performed Released on: 12/05/2019 2:41 PM [id number] RT--OXYGEN CANNULA [#[id number]] Priority: STAT Class: Hospital Performed Standing Order Information Remaining Occurrences:0/1 Interval:CONTINUOUS Last released:12/05/2019 Released o rders: SunDec 05, 2019 11:20 AM by: JULIO MANZO LPM -> 2 Indications for O2? -> CHEST PAIN [id number] RT--OXYGEN CANNULA [#[id number]] Priority: STAT Class: Hospital Performe d LPM -> 2 Indications for O2? -> CHEST PAIN Released on: 12/05/2019 11:20 AM [id number] DIET NPO [#[id number]] Canceled Priority: STAT Class: Hospital Performed Cancele d by RITIKA CANAS on SunDec 05, 2019 2:41 PM Reason: None Comment: Standing Order Information Remaining Occurrences:0/1 Interval:DIET EFFECTIVE NOW Last released:12/05/2019 Release d orders: SunDec 05, 2019 11:20 AM by: JULIO MANZO NPO options: -> With Meds [id number] DIET NPO [#[id number]] Canceled Priority: STAT Class: Hospital Performed Cancele d by RITIKA CANAS on SunDec 05, 2019 2:41 PM Reason: None Comment: NPO options: -> With Meds Released on: 12/05/2019 11:20 AM [id number] DIET NPO [#[id number]] Priority: S TAT Class: Hospital Performed Standing Order Information Remaining Occurrences:0/1 Inter haile:DIET EFFECTIVE NOW Last released:12/05/2019 Released orders: SunDec 05, 2019 2:41 PM by: RITIKA CANAS [id number] DIET NPO [#[id number]] Priority: STAT Class: H ospital Performed Released on: 12/05/2019 2:41 PM [id number] SALINE LOCK IV [#[id number]] Priority: STAT Class: Hospital Performed Standing Order Information Remaining Occurrences:0 /1 Interval:ONE TIME Last released:12/05/2019 Released orders: SunDec 05, 2019 11:20 AM by: JULIO MANZO IVT11 SALINE LOCK IV [#[id number]] Priority: STAT Cl ass: Hospital Performed Released on: 12/05/2019 11:20 AM [id number] METABOLIC PANEL, COMPREHENSIVE [# [id number]] Priority: STAT Class: ER Collect Standing Order Information Remaining Occurrences:0 /1 Interval:ONE TIME Last released:12/05/2019 Released orders: SunDec 05, 2019 11:20 AM by: JULIO MANZO [id number] CBC WITH AUTOMATED DIFF [#[id number]] Priority: STAT Cl ass: ER Collect Standing Order Information Remaining Occurrences:0/1 Interval:ONE TI ME Last released:12/05/2019 Released orders: SunDec 05, 2019 11:20 AM by: JULIO MANZO [id number] TROPONIN I [#[id number]] Priority: STAT Class: ER Collect Sta nding Order Information Remaining Occurrences:0/1 Interval:ONE TIME Last released:0 12/05/2019 Released orders: SunDec 05, 2019 11:20 AM by: JULIO MANZO [id number] MAGNESIUM [#[id number]] Priority: STAT Class: ER Collect Standing Order Information Remaining Occurrences:0/1 Interval:ONE TIME Last released:12/05/2019 Released orders : SunDec 05, 2019 11:20 AM by: JULIO MANZO [id number] LACTIC ACID [#[id number]] Priority: STAT Class: ER Collect Standing Order Information Remaining Occurrences:0/2 Interval:NOW THEN EVERY 4 HOURS Last released:12/05/2019 Released orders: SunDec 05, 2019 12:06 PM by: JULIO MANZO SunDec 05, 2019 11:20 AM by: JULIO MANZO [id number] PROTHROMBIN TIME + INR [#[id number]] Priority: STAT Class: ER Collect Standing Order Information Remain ing Occurrences:0/1 Interval:ONE TIME Last released:12/05/2019 Released orders : SunDec 05, 2019 11:20 AM by: JULIO MANZO [id number] URINALYSIS W/ RFLX MICROSCOPIC [# [id number]] Priority: STAT Class: ER Collect Standing Order Information Remaining Occurrences:0 /1 Interval:ONE TIME Last released:12/05/2019 Released orders: SunDec 05, 2019 11:20 AM by: JULIO MANZO [id number] METABOLIC PANEL, COMPREHENSIVE [#[id number]] Priority: STAT Cl ass: ER Collect Specimen Source: Plasma Specimen Collected: 12/05/2019 12:38 PM Resulting Agency: [facility] Test ID: MPL Released on: 12/05/2019 11:20 AM [id number] CBC WITH A UTOMATED DIFF [#[id number]] Priority: STAT Class: ER Collect Specimen Source: Whole Blood S pecimen Collected: 12/05/2019 12:38 PM Resulting Agency: [facility] Test ID: CBCXA Released on: 12/05/2019 11:20 AM [id number] TROPONIN I [#[id number]] Prior ity: STAT Class: ER Collect Specimen Source: Plasma Specimen Collected: 12/05/2019 12:38 PM Resultin g Agency: [facility] Test ID: TROIP Released on: 12/05/2019 11:20 AM [id number] 2 MAGNESIUM [#[id number]] Priority: STAT Class: ER Collect Specimen Source : Plasma Specimen Collected: 12/05/2019 12:38 PM Resulting Agency: [facility] Test ID: MGPL Released on: 12/05/2019 11:20 AM [id number] LACTIC ACID [#[id number]] P riority: STAT Class: ER Collect Specimen Source: Plasma Specimen Collected: 12/05/2019 12:40 PM Resultin g Agency: [facility] Test ID: LAC Released on: 12/05/2019 11:20 AM [id number] PROTHR OMBIN TIME + INR [#[id number]] Priority: STAT Class: ER Collect Specimen Source: Plasma Spe cimen Collected: 12/05/2019 12:38 PM Resulting Agency: [facility] Test ID: APTHR R eleased on: 12/05/2019 11:20 AM [id number] URINALYSIS W/ RFLX MICROSCOPIC [#[id number]] Prior ity: STAT Class: ER Collect Specimen Source: Urine Specimen Collected: 12/05/2019 2:45 PM Resultin g Agency: [facility] Test ID: UA Released on: 12/05/2019 11:20 AM [id number] LITHIU M [#[id number]] Priority: STAT Class: ER Collect Standing Order Information Remaining Occurrences:0/1 Interval:ONE TIME Last released:12/05/2019 Released orders : SunDec 05, 2019 11:40 AM by: MECHELLE GAMBLE [id number] LITHIUM [# [id number]] Priority: STAT Class: ER Collect Specimen Source: Serum Specimen Collected: 12/05/2019 12 :38 PM Resulting Agency: [facility] Test ID: LI Released on: 12/05/2019 11:40 AM [id number] LITHIUM [#[id number]] Canceled Priority: STAT Class: ER Collect Canceled by TENA, [facility] [place] on SunDec 05, 2019 11:42 AM Reason: Other Comment: Duplicate Standing Order Information Remaining Occurrences:0/1 Interval:ONE TIME Last released:0 12/05/2019 Released orders: SunDec 05, 2019 11:41 AM by: JULIO MANZO [id number] LITHIUM [#[id number]] Canceled Priority: STAT Class: ER Collect Specimen Collected: 12/05/2019 11:45 AM Resulting Agency: [facility] Test ID: LI Canceled by TENA, [facility] [place] on SunDec 05, 2019 11:42 AM Reason: Other Comment: Duplicate Rele ased on: 12/05/2019 11:41 AM [id number] LACTIC ACID [#[id number]] Priority: STAT Cl ass: ER Collect Resulting Agency: [facility] Test ID: LAC Released on: 12/05/2019 12:06 PM [id number] AMMONIA [#[id number]] Priority: Routine Class: ER Collect Specimen Source: Blood Standing Order Information Remaining Occurrences:0/1 Interval:ONE TI ME Last released:12/05/2019 Released orders: SunDec 05, 2019 3:19 PM by: Javier KHAN [id number] AMMONIA [#[id number]] Priority: STAT Class: ER Collect Spe cimen Source: Blood Resulting Agency: [facility] Test ID: NH3 Released on: 12/05/2019 3:19 PM [id number] BILIRUBIN, CONFIRM [#[id number]] Priority: Routine Class : ER Collect Resulting Agency: [facility] Test ID: ICTO Standing Order Informat ion Remaining Occurrences:0/1 Released orders: SunDec 05, 2019 2:45 PM by: Automatic B atch Process [id number] BILIRUBIN, CONFIRM [#[id number]] Priority: Routine Class : ER Collect Specimen Source: Miscellaneous sample Specimen Collected: 12/05/2019 2:45 PM Resultin g Agency: [facility] Test ID: ICTO Released on: 12/05/2019 2:45 PM [id number] EKG, 12 LEAD, INITIAL [#[id number]] Priority: STAT Class: Hospital Performed Stand ing Order Information Remaining Occurrences:0/1 Interval:ONE TIME Last released:0 12/05/2019 Released orders: SunDec 05, 2019 11:20 AM by: JULIO MANZO Reason for Exam: -> Chest Pain [id number] EKG, 12 LEAD, INITIAL [#[id number]] Priority: STAT Class: H ospital Performed Resulting Agency: [facility] Test ID: [id number] Reason for Exam: -> Chest Pain Releas ed on: 12/05/2019 11:20 AM [id number] XR CHEST PORT [#[id number]] Priority: STAT Clas s: Hospital Performed Standing Order Information Remaining Occurrences:0/1 Interval:ONE TI ME Last released:12/05/2019 Released orders: SunDec 05, 2019 11:20 AM by: JULIO MANZO Reason for Exam -> Chest Pain [id number] CT HEAD WO CONT [#[id number]] Priority: S TAT Class: Hospital Performed Standing Order Information Remaining Occurrences:0/1 Inter haile:ONE TIME Last released:12/05/2019 Released orders: SunDec 05, 2019 11:20 AM by: JULIO MANZO Reason for Exam -> ams [id number] XR PELV AP ONLY [#[id number]] Priority: S TAT Class: Hospital Performed Standing Order Information Remaining Occurrences:0/1 Inter haile:ONE TIME Last released:12/05/2019 Released orders: SunDec 05, 2019 11:20 AM by: JULIO MANZO Reason for Exam -> fall [id number] XR CHEST PORT [#[id number]] Priority: STAT Class: Hospital Performed Specimen Collected: 12/05/2019 12:21 PM Resulting Agency: [facility] Test ID: [id number] Reason for Exam -> Chest Pain Released on: 12/05/2019 11:[id number] HEAD WO CONT [#[id number]] Priority: STAT Class: Hospital Performed Specimen Collected : 12/05/2019 12:43 PM Resulting Agency: [facility] Test ID: [id number] Reason for Exam -> ams R eleased on: 12/05/2019 11:20 AM [id number] XR PELV AP ONLY [#[id number]] Priority: STAT Class: Hospital Performed Specimen Collected: 12/05/2019 12:23 PM Resulting Agency: [facility] Test ID : [id number] Reason for Exam -> fall Released on: 12/05/2019 11:20 AM [id number] MRI BRAIN WO CONT [#[id number]] Priority: STAT Class: Hospital Performed Standing Order Information Remaining Occurrences:0/1 Interval:ONE TIME Last released:12/05/2019 Released orders : SunDec 05, 2019 3:19 PM by: JOSE KHAN Reason for Exam -> ams [id number] MRI BRA IN WO CONT [#[id number]] Priority: STAT Class: Hospital Performed Specimen Collected : 12/05/2019 5:03 PM Resulting Agency: [facility] Test ID: [id number] Reason for Exam -> ams R eleased on: 12/05/2019 3:19 PM [id number] CULTURE, BLOOD [#[id number]] Priority: Routi ne Class: ER Collect Specimen Source: Blood Standing Order Information Remaining Occurrences:0 /1 Interval:ONE TIME Last released:12/05/2019 Released orders: SunDec 05, 2019 11:20 AM by: JULIO [id number] CULTURE, BLOOD [#[id number]] Priority: STAT Cl ass: ER Collect Specimen Source: Blood Standing Order Information Remaining Occurrences:0/1 I nterval:ONE TIME Last released:12/05/2019 Released orders: SunDec 05, 2019 11:20 AM by: JULIO MANZO [id number] CULTURE, BLOOD [#[id number]] Priority: STAT Class: E R Collect Specimen Source: Blood Specimen Collected: 12/05/2019 12:38 PM Resulting Agency: [facility] Test ID: HBCS Released on: 12/05/2019 11:20 AM [id number] CULTURE, BLOOD [#[id number]] Priority: STAT Class: ER Collect Specimen Source: Blood Specimen Collected: 12/04 12:30 PM Resulting Agency: [facility] Test ID: HBCS Released on: 12/05/2019 11:20 AM CEFTRIAXONE 1 GRAM IVPB MBP [#[id number]] Priority: STAT Class: Normal An tibiotic Indications -> Sepsis of Unknown Etiology SODIUM CHLORIDE 0.9 % IV [#[id number]] Priority: STAT Class: Normal SODIUM CHLORIDE 0.9 % IV [#[id number]] Priority : STAT Class: Normal ENOXAPARIN 40 MG/0.4 ML SUB-Q SYRINGE [#[id number]] Priority: STAT Class: N ormal ENOXAPARIN 40 MG/0.4 ML SUB-Q SYRINGE [#[id number]] Priority: STAT Class: Normal FUROSEMIDE 10 MG/ML IJ SOLN [#[id number]] Priority: STAT Class: Normal CON53 IP CONSULT TO PS YCHIATRY [#[id number]] Priority: STAT Class: Hospital Performed Standing Order Information Remaining Occurrences:0/1 Interval:ONE TIME Last released:12/05/2019 Released orders : SunDec 05, 2019 11:42 AM by: JULIO MANZO Reason for Consult: -> si Did you call or spea k to the consulting provider? -> No Consult To -> si CON53 IP CONSULT TO PSYCHIATRY [#[id number]] Priority: STAT Class: Hospital Performed Reason for Consult: -> si Did you call or spea k to the consulting provider? -> No Consult To -> si Released on: 12/05/2019 11:42 AM CON62 IP CON SULT TO INTERNAL MEDICINE [#[id number]] Priority: STAT Class: Hospital Performed Standing Order Inf ormation Remaining Occurrences:0/1 Interval:ONE TIME Last released:12/05/2019 Release d orders: SunDec 05, 2019 2:16 PM by: CARLA OTERO Reason for Consult: -> Altered mental st atus, Dr. Canas to admit Did you call or speak to the consulting provider? -> Yes CON62 IP CONSULT TO INTERNAL MEDICINE [#[id number]] Priority: STAT Class: Hospital Performed Reason for Consu lt: -> Altered mental status, Dr. Canas to admit Did you call or speak to the consulting provider? -> Yes Released on: 12/05/2019 2:16 PM CON53 IP CONSULT TO PSYCHIATRY [#[id number]] Priority: STAT Class: Hospital Performed Standing Order Information Remaining Occurrences:0 /1 Interval:ONE TIME Last released:12/05/2019 Released orders: SunDec 05, 2019 2:41 PM by: RITIKA CANAS Reason for Consult: -> adverse med reaction Did you call or speak to t he consulting provider? -> No Consult To -> Dr Aguirre Schedule When? -> TODAY CON9 IP CONSULT TO N EUROLOGY [#[id number]] Priority: STAT Class: Hospital Performed Standing Order Information Remaining Occurrences:0/1 Interval:ONE TIME Last released:12/05/2019 Released orders : SunDec 05, 2019 2:41 PM by: RITIKA CANAS Reason for Consult: -> encephalopathy adverse drug reaction Did you call or speak to the consulting provider? -> No Consult To -> Dr Jacob Schedule When? -> TODAY CON53 IP CONSULT TO PSYCHIATRY [#[id number]] Priority: STAT Class: H ospital Performed Reason for Consult: -> adverse med reaction Did you call or speak to the consulting provider? -> No Consult To -> Dr Aguirre Schedule When? -> TODAY Released on: 12/05/2019 2:41 P M CON9 IP CONSULT TO NEUROLOGY [#[id number]] Priority: STAT Class: Hospital Performe d Reason for Consult: -> encephalopathy adverse drug reaction Did you call or speak to the consulting provider? -> No Consult To -> Dr Jacob Schedule When? -> TODAY Released on: 12/05/2019 2:41 P M [id number] INITIAL PHYSICIAN ORDER: OBSERVATION* [#[id number]] Priority: Routine Class: ADT Pend Trans milvia Standing Order Information Remaining Occurrences:0/1 Interval:ONE TIME Last release d:12/05/2019 Released orders: SunDec 05, 2019 2:00 PM by: LUZ ELENA GATES Patient Class: -> OBS ERVATION Admitting Diagnosis -> Encephalopathy acute Admitting Physician -> CARLA OTERO Attending Physician -> CARLA OTERO [id number] INITIAL PHYSICIAN ORDER: OBSERVATION* [#[id number]] Priority: Routine Class: ADT Pend Transfer Patient Class: -> OBSERVATION Admitting Diagnosis -> Encephalopathy acute Admitting Physician -> CARLA OTERO Attending Physician -> CARLA OTERO Released on: 12/05/2019 2:00 PM [id number] INITIAL PHYSICIAN ORDER: INPATIENT [#[id number]] Bridgetteo asay: Routine Class: ADT Pend Transfer Standing Order [...] o- n- ) Admitting Diagnosis - > Oyj-evqy-ipgfusa adverse reaction to medication Admitting Physician -> RITIKA CANAS Physician -> RITIKA CANAS Estimated Length of Stay -> 5-7 Midnights Discharge Plan: -> Other (Specify) [id number] INITIAL PHYSICIAN ORDER: INPATIENT [#[id number]] Priority: Routine Class: ADT Pend Tr ansfer [...] i- o- n- ) Admitting Diagnosis -> Xdx-dipc-rpxuqsl adverse reaction to medication Admitting Physician -> RITIKA CANAS Attending Physician -> MARY CANAS Estimated Length of Stay -> 5-7 Midnights Discharge Plan: -> Other (Specify) [id number] [facility] PHYSICIAN ORDER: INPATIENT [#[id number]] Priority: Routine Class: ADT Pend Transfer Status: [...] i- o- n- ) Admitting Diagnosis -> Xlo-cdcm-jvnmkyf adverse reaction to medication Admitting Physician -> RITIKA CANAS Attending Physician -> MARY CANAS Estimated Length of Stay -> 5-7 Midnights Discharge Plan: -> Other (Specify) Released on: 12/05/2019 2:41 PM [id number] INITIAL PHYSICIAN ORDER: INPATIENT [#[id number]] Priority: Routine Class : ADT Pend Transfer [...] o- n- ) Adm itting Diagnosis -> Cgc-faxg-hhkalvh adverse reaction to medication Admitting Physician -> RITIKA CANAS Attending Physician -> RITIKA CANAS Estimated Length of Stay -> 5-7 Midnights Discharge Plan: -> Other (Specify) Released on: 12/05/2019 2:41 PM COD2 FULL CODE [#[id number]] Priority: STAT Class: Hospital Performed Standing Order Information Remaining Occurrences:0 /1 Interval:CONTINUOUS Last released:12/05/2019 Released orders: SunDec 05, 2019 2:41 PM by: RITIKA CANAS COD2 FULL CODE [#[id number]] Priority: STAT Cl ass: Hospital Performed Released on: 12/05/2019 2:41 PM [id number] EEG 12-26 HR W/VIDEO [# [id number]] Priority: Routine Class: Hospital Performed Standing Order Information Remaining Occurre nces:0/1 Interval:ONE TIME Last released:12/05/2019 Released orders: SunDec 04 3:19 PM by: JOSE KHAN Reason for Exam: -> ams [id number] EEG 12-26 HR W/VIDEO [#[id number]] Priority: STAT Class: Hospital Performed Resulting Agency: [facility] Test ID: [id number] Reason for Exam: -> ams Released on: 12/05/2019 3:19 JORDYMaxwell waddell MR#: [id number] * Rm: 441- 01Ht: 5' 5.75" Wt: 300 lb Code: Full Code Iso:Diagnosis:Encep halopathy acute [G93.40]Allergies: No Known Allergies -------- Current as of: 12/05/19 1807 NB=New Bag --aspirin (ASPIRIN) tablet 325 mg #[id number] Admin Amount: 1 Tab (1 x 325 mg Tab) Ordered Dose: 325 mg Route: Oral Freq: ONCE Start Date: 12/24/13 No administration times (back 96 hours, ahead 96 hours). ------diphenhydrAMINE (BENADRYL) capsule 50 mg #[id number] Admin Amount: 1 Cap (1 x 50 mg Cap) Ordered Dose: 50 mg Route: Ora l Freq: NOW Start Date: 12/24/13 No administration times (back 96 hours, ahe ad 96 hours). ------diazepam (VALIUM) tablet 5 mg #[id number] Admin Amount: 1 Tab (1 x 5 mg Tab) Ordered Dose: 5 mg Route: Oral Freq: ON CE Start Date: 12/24/13 No administration times (back 96 hours, ahead 96 hours). ------lidocaine (XYLOCAINE) 10 mg/mL (1 %) injection 1-30 mL #[id number] Admin Amount: 1-30 mL Ordered Dose: 1-30 mL Route: IntraDERMal Freq: ONCE Start Date: 12/24/13 No administration times (back 96 hours, ahead 96 hours). ------heparin (PF) 2 units/ml in NS infusion 2,000 Units #[id number] Admin Amount: 1,000 mL = 2,000 Units of 2 Units/mL Ordered Dose: 1,000 mL Ro [place]: Irrigation Freq: ONCE Start Date: 12/24/13 No administration times (back 96 hours, ahead 96 hours). ------heparinized saline 2 units/mL infusion 1,000 Units #[id number] Admin Amount: 500 mL = 1,000 Units of 2 Units/mL Ordered Dose: 500 mL Ro [place]: IntraarTERial Freq: ONCE Start Date: 12/24/13 No administration times (back 96 hours, ahead 96 hours). ------0.9% sodium chloride infusion #[id number] Ordered Dose: 75 mL/hr Route: IntraVENous Freq: CONTINUOUS Start Date: 12/24/13 Rate: 75 mL/hr Duration: No administration times (back 96 hours, ahead 96 hours). ------ioversol (OPTIRAY) 320 mg iodine/mL contrast injection 1-100 mL #[id number] Admin Amount: 1-100 mL Ordered Dose: 1-100 mL Route: IntraVENous Freq: RAD O NCE Start Date: 12/24/13 No administration times (back 96 hours, ahead 96 hours).Maxwell Bray MR#: [id number] * Rm: 441-01Ht: 5' 5.75" Wt: 300 lb Cod e: Full Code Iso:Diagnosis:Encephalopathy acute [G93.40]Allergies: No Known Allergies -------- Current as of: 12/05/19 1807 NB=New Bag --gadobutrol (GADAVIST) contrast solution 1-10 mL #[id number] Admin Amount: 1-10 mL Ordered Dose: 1-10 mL Route: IntraVENous Freq: RAD O NCE Start Date: 01/13/14 No administration times (back 96 hours, ahead 96 hours). ------sodium chloride (NS) flush 5-10 mL #[id number] Admin Amount: 5-10 mL Ordered Dose: 5-10 mL Route: IntraVENous Freq: RAD ONCE Start Date: 01/13/14 No administration times (back 96 hours, ahead 96 hours). ------sodium chloride (NS) 0.9 % flush #[id number] Ordered Dose: Route: Freq: Start Date: 01/13 No administration times (back 96 hours, ahead 96 hours). ------morphine injection 2 mg #[id number] Admin Amount: 1 mL = 2 mg of 2 mg/mL Ordered Dose: 2 mg Route: IntraVENous Freq: NOW Start Date: 03/13/15 No administration times (back 96 hours, ahe ad 96 hours). ------influenza vaccine (4 yr+)(PF) (FLUCELVAX QUAD) inj ection 0.5*#[id number] Admin Amount: 0.5 mL Ordered Dose: 0.5 mL Route: IntraMUSCular Freq: PRIOR TO DISCHARGE Start Date: 03/30/16 No administration times (back 96 hours, ahead 96 hours). ------oxyCODONE-acetaminophen (PERCOCET) 5-325 mg per tablet 1 Tab #[id number] Admin Amount: 1 Tab Ordered Dose: 1 Tab Route: Oral Freq: NOW Start Date: 09/07/17 No administration times (back 96 hours, ahead 96 hours). ------barium sulfate (READICAT) 2.1 % (w/v), 2.0 % (w /w) oral suspension 9*#[id number] Admin Amount: 900 mL Ordered Dose: 900 mL Route: Oral Delgado q: RAD ONCE Start Date: 10/15/17 No administration times (back 96 hours, ahead 96 hours). ------iopamidol (ISOVUE 300) 61 % contrast injection 100 mL #[id number] Admin Amount: 100 mL Ordered Dose: 100 mL Route: IntraVENous Freq: RAD ONC E Start Date: 10/15/17 No administration times (back 96 hours, ahead 96 hours).Maxwell Bray MR#: [id number] * Rm: 441-01Ht: 5' 5.75" Wt: 300 lb Code: Full Code Iso:Diagnosis:Encephalopathy acute [G93.40]Allergies: No Known Allergies -------- Current as of: 12/05/191806 NB=New Bag --risperiDONE (RisperDAL m-tabs) disintegrating tablet 1 mg #[id number] Admin Amount: 1 Tab (1 x 1 mg Tab) Ordered Dose: 1 mg Route: Oral Freq: ONCE Start Date: 12/24/17 No administration times (back 96 hours, ahead 96 hours). ------ALPRAZolam (XANAX) tablet 2 mg #[id number] Admin Amount: 4 Tab (4 x 0.5 mg Tab) Ordered Dose: 2 mg Route: Ora l Freq: NOW Start Date: 12/24/17 No administration times (back 96 hours, ahe ad 96 hours). ------lamoTRIgine (LaMICtal) tablet 100 mg #[id number] Admin Amount: 1 Tab (1 x 100 mg Tab) Ordered Dose: 100 mg Route: Oral Delgado q: ONCE Start Date: 12/24/17 No administration times (back 96 hours, ahead 96 hours). ------OLANZapine (ZyPREXA zydis) disintegrating tablet 5 mg #[id number] Admin Amount: 1 Tab (1 x 5 mg Tab) Ordered Dose: 5 mg Route: Oral Delgado q: ONCE Start Date: 12/25/17 No administration times (back 96 hours, ahead 96 hours). ------LORazepam (ATIVAN) tablet 2 mg #[id number] Admin Amount: 4 Tab (4 x 0.5 mg Tab) Ordered Dose: 2 mg Route: Ora l Freq: NOW Start Date: 12/25/17 No administration times (back 96 hours, ahe ad 96 hours). ------LORazepam (ATIVAN) injection 1 mg #[id number] Admin Amount: 0.5 mL = 1 mg of 2 mg/mL Ordered Dose: 1 mg Route: Int raVENous Freq: NOW Start Date: 12/25/17 No administration times (back 96 hours, ahe ad 96 hours). ------barium sulfate (EZ PAQUE) 96 % (w/w) contrast suspension 17 6 g #[id number] Admin Amount: 176 g Ordered Dose: 176 g Route: Oral Freq: RAD ONCE Start Date: 08/02/18 No administration times (back 96 hours, ahead 96 hours). ------barium sulfate (EZ PAQUE) 96 % (w/w) contrast s uspension 176 g #[id number] Admin Amount: 176 g Ordered Dose: 176 g Route: Oral Delgado q: RAD ONCE Start Date: 08/02/18 No administration times (back 96 hours, ahead 96 hours).Luisito donovanMaxwell MR#: [id number] * Rm: 441-01Ht: 5' 5.75" Wt: 300 lb Cod e: Full Code Iso:Diagnosis:Encephalopathy acute [G93.40]Allergies: No Known Allergies -------- Current as of: 12/05/191806 NB=New Bag --aspirin chewable tablet 162 mg #[id number] Admin Amount: 2 Tab (2 x 81 mg Tab) Ordered Dose: 162 mg Route: Oral Freq: NOW Start Date: 08/10/19 No administration times (back 96 hours, ahead 96 hours). ------0.9% sodium chloride infusion 1,000 mL #[id number] Admin Amount: 1,000 mL Ordered Dose: 1,000 mL Route: IntraVENous Freq: ONC E Start Date: 08/16/19 Rate: 1,000 mL/hr Duration: No administration ti mes (back 96 hours, ahead 96 hours). ------methylPREDNISolone (PF) (Solu-MEDROL) injection 125 mg #[id number] Admin Amount: 2 mL = 125 mg of 125 mg/2 mL Ordered Dose: 125 mg Route: Int raVENous Freq: NOW Start Date: 08/16/19 No administration times (back 96 hours, ahe ad 96 hours). ------aspirin chewable tablet 162 mg #[id number] Admin Amount: 2 Tab (2 x 81 mg Tab) Ordered Dose: 162 mg Route: Oral Delgado q: NOW Start Date: 08/16/19 No administration times (back 96 hours, ahead 96 hours). ------haloperidoL (HALDOL) tablet 5 mg #[id number] Admin Amount: 1 Tab (1 x 5 mg Tab) Ordered Dose: 5 mg Route: Oral Delgado q: ONCE Start Date: 10/30/19 No administration times (back 96 hours, ahead 96 hours). ------cefTRIAXone (ROCEPHIN) 1 g in 0.9% sodium chloride (MBP/ADV) 50 m L M*#[id number] Admin Amount: 1 g Ordered Dose: 1 g Route: IntraVENous Freq: NOW Start Date: 12/05/19 Rate: 100 mL/hr Duration: 30 Minutes Administration linda es (back 96 hours, ahead 96 hours): 12/05/19: 1428NB -----0.9% sodium chloride infusion #[id number] Ordered Dose: 125 mL/hr Route: IntraVENous Freq: CONTINUOUS Start Date: 12/05/19 Rate: 125 mL/hr Duration: Administration times (back 96 hours, ahead 96 hours): 12/05/19: 140Maxwell Correia MR#: [id number] * Rm : 441-01Ht: 5' 5.75" Wt: 300 lb Code: Full Code Iso:Diagnosis:Encephalopathy acute [G93. 40]Allergies: No Known Allergies -------- Current as of: 12/05/191806 NB=New Bag --enoxaparin (LOVENOX) injection 40 mg #[id number] Admin Amount: 0.4 mL = 40 mg of 40 mg/0.4 mL Ordered Dose: 40 mg Ro [place]: SubCUTAneous Freq: EVERY 24 HOURS Start Date: 12/05/19 Administration times (back 96 h [facility], ahead 96 hours): 12/05/19: 209912/06/19: 209912/07/19: 209912/08/19: 2099 ---furosemide (LASIX) injection 20 mg #[id number] Admin Amount: 2 mL = 20 mg of 10 mg/mL Ordered Dose: 20 mg Ro [place]: IntraVENous Freq: ONCE Start Date: 12/05/19 Administration [...] Inf ormationFollow-up With:Ritika Canas MDDetails:Comments:Contact Info:[address] [facility] [address] [facility] [id number] Name Value Range Interpretation Code Description Data Melani rce(s) Supporting Document(s ) ID Date Data Source [id number] 12/05/2019 04:36:09 PM EDT [facility] The history is provided by the patient [...] of morbidity or mortality cardiac cath at [facility] approx 6-8 months ag o Other [...] week Gets together: Once a week Attends pentecostalism service: More than 4 times per year [...] QTC Calculation (Bezet) 515 ms Calculated P [place] 40 degrees Calculat ed R [place] 41 degrees Calculated T [place] 147 degrees Diagnosis Sinus tachycardiaProb able left [...] Time: 12/05/19 12:38 PMResult Value Ref Range Haines level 1.53 (HH) 0.6 - 1.2 MMOL/LLACTIC ACID Collection Time: 12/04 12:40 PMResult Value Ref Range Lactic acid 1.1 0.4 - 2.0 MMOL/LEKG:Sinus tachy cardia at 100 BPM, normal axis, nothing acute.Interpreted by Julio Manzo MD11:2 0 AM cardiac technologist reading shows sinus tachycardia at 100 BPM. Interpretedby Julio Rosenberg MD.Radiology:CXR Results (Last 48 hours) 12/05/19 1214 XR CHEST PORT [place] l result Narrative: CHEST 1 view (s)HISTORY: [...] cardiac monitoring, CXR, and head CT. Will chairman and chief executive officer ocephin, IV fluids, and oxygen. Will consult [...] Supporting Document(s ) ID Date Data Source [id number] 12/05/2019 04:05:06 PM EDT [facility] [address] [place] [address] [email or web address] CONSULT NOTEPatient: Maxwell Bray Se x: male [...] or sensory fuentes es. Lab significant of Haines 1.53 and elevatedliver enzymes. Neurology consult ed for encephalopathy/drug adverse reaction.Past Medical History:Diagnosis Date Other unknown and unspecified cause of morbidity or mortality cardiac cath at [facility] approx 6-8 months ago Other unknown [...] QTC Calculation (Bezet) 515 ms Calculated P [place] 40 degrees Calculated R [place] 41 degrees Calculated T [place] 147 degrees Diagnosis Sinus tachycardiaProbable left atrial [...] Time: 12/05/19 12:38 PMResult Value Ref Range Haines level 1.53 (HH) 0.6 - 1.2 MMOL/LLACTIC [...] QTC Calculation (Bezet) 515 ms Calculated P [place] 40 degrees Calculat ed R [place] 41 degrees Calculated T [place] 147 degrees Diagnosis Sinus tachycardiaProb able left [...] adalberto M79.2 Seizure disorder (HCC) G40.909 Spells [id number] Severe obesity (HCC) E66 .01 Depression F32.9 Anxiety F41.9 Bipolar disorder (HCC) F31.9 Depressive disorde r F32.9 Status post gastric bypass for obesity Z98.84 Morbid obesity (HCC) E66 .01 Mixed anxiety and depressive disorder F41.8 Vitamin D deficiency E55.9 Bipol ar disorder with severe depression (HCC) F31.4 Encephalopathy acute G93.40 Adve rse drug reaction, initial encounter T50.905A Mlx-betl-zeminuy adverse reaction to me dication T88.7XXA49 year old male with pmh as stated above and now with AMS and genera lizedweakness - most likely secondary to lithium toxicity - ? Seizure.Plan: Mri Brain Ammonia Monitor lithium level daily EEG - 24 hrs Seizure precautionsPaulson Gerald Flores 2019 3:19 [id number] Name Value Range Interpretation Code Description Data Melani rce(s) Supporting Document(s ) ID Date Data Source [id number] 12/05/2019 03:37:45 PM EDT [facility] sbar-q given to Ev berger to floor Name Value Range Interpretation Code Description Data Melani rce(s) Supporting Document(s ) ID Date Data Source [id number] 12/05/2019 03:29:57 PM EDT [facility] sbar-q given to Sheri UGALDE on floor Name Value Range Interpretation Code Description Data [facility] rce(s) Supporting Document(s ) ID Date Data Source [id number] 12/05/2019 03:28:02 PM EDT [facility] History & PhysicalBrian Anam Bray is a [...] h igh dose amytriptylene 200 mg nightly, Haines, andVraylar 6 mg. :Haines level on prior admission therapeutic. Patient's wifecontactedthis [...] of morbidity or mortality cardiac cath at [facility] approx 6-8 months ag o Other [...] week Gets together: Once a week Attends pentecostalism service: More than 4 times per year [...] Calculati on (Bezet) 515 ms Calculated P [place] 40 degrees Calculated R [place] 41 degrees Elena culated T [place] 147 degrees Diagnosis Sinus tachycardiaProbable left atrial [...] Time: 12/05/19 12:38 PMResult Value Ref Range Haines level 1.53 (HH) 0.6 - 1.2 MMOL/LLACTIC ACID Collection Time: 12/04 12:40 PMResult Value Ref Range Lactic acid 1.1 0.4 - 2.0 MMOL/All lab results for the last 24 hours reviewed. Serun Haines level toxicAssessment/PlanPrinci pal Problem: Adverse drug reaction, initial encounter (12/05/2019) LithiumActive Prob lems: Encephalopathy acute (12/05/2019) Pmq-atsa-fuuzaiu adverse reaction to med ication (12/05/2019)Neuro, and psych evaluation, hydrationGeorge MD Missael Name Value Range Interpretation Code Description Data Melani rce(s) Supporting Document(s ) ID Date Data Source [id number] 12/06/2019 12:36:10 PM EDT [facility] Name Value Range Interpretation Description Data Sup porting Code Source(s) Document(s ) Service comment [facility] Bacteria [facility] identified in [facility] Unspecified Hospital specimen by Culture ID Date Data Source [id number] 12/05/2019 04:18:26 PM EDT [facility] Name Value Range Interpretation Description Data Sup porting Code Source(s) Document(s ) Color of Urine YEL Abnormal (applies [facility] - to non-numeric Good results) [facility] Appearance of CLEAR Abnormal (applies [facility] - Urine to non-numeric Good results) [facility] Specific gravity 1.033 1.003-1. Above high normal [facility] - of Urine by 030 Good Refractometry [facility] pH of Urine by 5.5 4.6-8.0 [facility] - Test strip [facility] Protein 30 mg/dL NEG Abnormal (applies [facility] - [Mass/volume] in to non-numeric Good Urine by Test results) [facility] Glucose NEG [facility] - [Mass/volume] in Good Urine by [facility] Automated test Hospital strip Ketones 15 mg/dL NEG Abnormal (applies [facility] - [Presence] in to non-numeric Good Urine by results) [facility] Automated test [facility] strip Bilirubin.total NEG Abnormal (applies [facility] - [Presence] in to non-numeric Good Urine results) [facility] Hemoglobin NEG [facility] - [Presence] in Good Urine by Test [facility] Urobilinogen 1.0 0.2-1.0 [facility] - [Presence] in EU/dL Good Urine by [facility] Automated test [facility] strip Nitrite NEG [facility] - [Presence] in Good Urine by [facility] test [facility] strip Leukocyte NEG [facility] - esterase Good [Presence] in [place] Urine by Hospital Automated test strip Leukocytes 0-5 [facility] - [Presence] in Good Urine sediment [facility] by [facility] microscopy Erythrocytes 0-2 [facility] - [#/area] in Good Urine sediment [facility] by [facility] high power field Epithelial cells 0-10 [facility] - [#/area] in Good Urine sediment [place] by [facility] high power field Bacteria NONE Abnormal (applies [facility] - [Presence] in to non-numeric Good Urine sediment results) [place] by [facility] microscopy ID Date Data Source [id number] 12/05/2019 03:26:35 PM EDT [facility] Name Value Range Interpretation Description Data Sup porting Code Source(s) Document(s ) Bilirubin NEG [facility] - Good [Presence] in [place] Urine by Hospital Confirmatory method ID Date Data Source [id number] 12/05/2019 02:22:27 PM EDT [facility] I spoke to Dr. Canas regarding Observation Status. Dr. Canas said patient will bemade In Patient Status today. Name Value Range Interpretation Code Description Data Melani rce(s) Supporting Document(s ) ID Date Data Source [id number] 12/05/2019 02:03:27 PM EDT [facility] SW/Psych Screener attempted to meet with Pt for MH evaluation. Pt was foundlying on stretcher with his eyes open, staring at the wall. Executive Meeting Manager knows this Ptfrom previous admission to the medical floor. When ask ed if Pt rememberedwriter, Pt appeared confused, but said he did. Pt stated he fell today, doesn'tremember how he was brought to the hospital. Pt appeared to be searching for hiswords and was having difficulty speaking. Pt unclear of where he is, stating"[place]" when asked where he was and "[place]" when asked what month it was. Whenasked if Pt was exhibiting any feelings of S/I, H/I or A/V Hallucinatio ns, Ptresponded with, "No," and confirmed he has been compliant with his psychiatricm edications. Executive Meeting Manager conferred with ER Attending, Dr. Manzo, who states that Ptwi ll most likely be medically admitted at this time.Krystina Centeno [facility] Name Value Range Interpretation Code Description Data Melani rce(s) Supporting Document(s ) ID Date Data Source [id number] 12/05/2019 12:53:[address] [facility] [address] HEAD W/O CONTRASTPRIOR: Multiple: Mos t [...] Supporting Document(s ) ID Date Data Source [id number] 12/05/2019 01:31:37 PM EDT [facility] Name Value Range Interpretation Description Data Sup porting Code Source(s) Document(s ) Lactate 1.1 0.4-2.0 [facility] - Good [Moles/volu MMOL/L [facility]] in Hospital Serum or Plasma ID Date Data Source [id number] 12/10/2019 05:19:22 AM EDT [facility] Name Value Range Interpretation Description Data Sup porting Code Source(s) Document(s ) Service comment [facility] Bacteria [facility] identified in [facility] Unspecified Hospital specimen by Culture ID Date Data Source [id number] 12/05/2019 02:14:34 PM EDT [facility] Name Value Range Interpretation Description Data Sup porting Code Source(s) Document(s ) Haines 1.53 0.6-1.2 Above upper panic PS[facility]AT[facility]ICS - Good [Moles/volu MMOL/L limits [facility]] in Hospital Serum or Plasma CALLED TO AND READ BACK BYSUSI GAMBLE 1414 12/05/19 [facility] ID Date Data Source [id number] 12/05/2019 01:31:37 PM EDT [facility] Name Value Range Interpretation Description Data Sup porting Code Source(s) Document(s ) Troponin 0.00-0.05 PS[facility]IATR[facility] - Good I.cardiac [facility] [Mass/volume Hospital ] in Serum or Plasma [...] to 1.50 ng/mL ID Date Data Source [id number] 12/05/2019 01:31:37 PM EDT [facility] Name Value Range Interpretation Description Data Sup porting Code Source(s) Document(s ) Sodium 134 136-145 Below low normal [facility] [Moles/volume] mmol/L [facility] in Serum or Hospital Plasma Potassium 3.5 3.5-5.1 [facility] [Moles/volume] mmol/L [facility] in Serum or Hospital Plasma Chloride 104 98-107 [facility] [Moles/volume] mmol/L [facility] in Serum or Hospital Plasma Carbon 26 21-32 [facility] dioxide, total mmol/L [facility] [Moles/volume] Hospital in Serum or Plasma Anion gap in 7 mmol/L 10-20 Below low normal [facility] od Serum or [facility] Plasma Hospital Glucose 127 74-106 Above high normal [facility] [Mass/volume] mg/dL [facility] in Serum or Hospital Plasma Urea nitrogen 21 mg/dL 7-18 Above high normal [facility] [Mass/volume] [facility] in Serum or Hospital Plasma Creatinine 0.94 0.70-1.3 [facility] [Mass/volume] mg/dL 0 [facility] in Serum or Hospital Plasma Glomerular >60 [facility] filtration [facility] rate/1.73 sq M Hospital predicted among blacks [Volume Rate/Area] in Serum or Plasma by Creatinine-bas ed formula (MDRD) Glomerular >60 [facility] filtration [facility] rate/1.73 sq M Hospital predicted among non-blacks [Volume Rate/Area] in Serum or Plasma by Creatinine-bas ed formula (MDRD) (NOTE)Estimated GFR is calculated using the Modification of Diet in RenalDisease (MDRD) Study equation, reported for both Americans(GFRAA) and non- Americans (GFRNA), and normalized to 1.7 0z5byrm surface area. The physician must decide which [...] normal [facility] - [facility] Serum or Plasma [facility] ital Bilirubin.total 0.9 mg/dL 0.2-1.0 [facility] [Mass/volume] in Serum or [facility] Plasma Alanine aminotransferase 34 U/L 13-61 [facility] - [facility] [Enzymatic activity/volume] [facility] in Serum or Plasma Aspartate aminotransferase 47 U/L 15-37 Above high [facility] [Enzymatic activity/volume] normal [facility] in Serum or Plasma by With P-5'-P Alkaline phosphatase 171 U/L 45-117 Above high [facility] - [facility] [Enzymatic activity/volume] normal [facility] in Serum or Plasma Protein [Mass/volume] in 7.5 g/dL 6.4-8.2 [facility] - [facility] Serum or Plasma [facility] ital Albumin [Mass/volume] in 3.8 g/dL 3.5-4.7 [facility] - Good Serum or Plasma by [facility] Bromocresol purple (BCP) dye binding method Globulin [Mass/volume] in 3.7 g/dL 1.7-4.7 [facility] - [facility] Serum by calculation [facility] Albumin/Globulin [Mass 1.0 0.7-2.8 [facility] - [facility] Ratio] in Serum or Plasma [facility] ID Date Data Source [id number] 12/05/2019 01:31:37 PM EDT [facility] Name Value Range Interpretation Description Data Sup porting Code Source(s) Document(s ) Magnesium 2.9 mg/dL 1.6-2.6 Above high normal [facility] [Mass/volume] [facility] in Serum or Hospital Plasma ID Date Data Source [id number] 12/05/2019 01:20:04 PM EDT [facility] Name Value Range Interpretation Description Data Sup porting Code Source(s) Document(s ) Prothrombin 10.6 sec 9.4-11.1 [facility] time (PT) [facility] INR in 1.0 0.8-1.2 [facility] - [facility] Platelet poor [facility] plasma by Hospital Coagulation assay ID Date Data Source [id number] 12/05/2019 01:07:21 PM EDT [facility] Name Value Range Interpretation Description Data Sup porting Code Source(s) Document(s ) Leukocytes 12.4 4.8-10.6 Above high normal [facility] - [#/volume] in K/uL Good Blood by [facility] Automated count Hospital Erythrocytes 5.03 4.70-6.0 [facility] - [#/volume] in M/uL 0 Good Blood by [facility] Hemoglobin 15.4 14.0-18. [facility] - [Mass/volume] in g/dL 0 Good Blood [facility] Hematocrit 45.8 % 42.0-52. [facility] - [Volume 0 Good Fraction] of [facility] Blood by Hospital Automated count Erythrocyte mean 91.1 FL 81.0-94. [facility] - corpuscular 0 Good volume [Entitic [facility] volume] by [facility] Automated count Erythrocyte mean 30.6 PG 27.0-35. [facility] - corpuscular 0 Good hemoglobin [facility] [Entitic mass] [facility] by Automated count Erythrocyte mean 33.6 30.7-37. [facility] - corpuscular g/dL 3 Good hemoglobin [facility] [Mass/volume] by Automated count Erythrocyte 12.9 % 11.5-14. [facility] - distribution 0 Good width [Ratio] by [facility] Automated count [facility] Platelets 164 K/uL 130-400 [facility] - [#/volume] in Good Blood by [facility] Automated count [facility] Platelet mean 9.5 FL 9.2-11.8 [facility] - volume [Entitic Good volume] in Blood [facility] by Automated Hospital count Nucleated 0.0 PER 0 [facility] - erythrocytes/100 100 WBC Good leukocytes [facility] [Ratio] in Blood Hospital Nucleated 0.00 0.0-0.01 [facility] - erythrocytes K/uL Good [#/volume] in [facility] Segmented 80 % 48.0-72. Above high normal [facility] - neutrophils/100 0 [facility] leukocytes in [facility] Lymphocytes/100 8 % 18.0-40. Below low normal [facility] - leukocytes in 0 [facility] Monocytes/100 10 % 2.0-12.0 [facility] - leukocytes in [facility] Eosinophils/100 1 % 0.0-7.0 [facility] - leukocytes in [facility] Basophils/100 0 % 0.0-3.0 [facility] - leukocytes in [facility] Immature 0 % 0-0.5 [facility] - granulocytes/100 Good leukocytes in [facility] Automated count Segmented 10.0 2.3-7.6 Above high normal [facility] - neutrophils K/UL Good [#/volume] in [facility] Lymphocytes 1.0 K/UL 0.9-4.2 [facility] - [#/volume] in [facility] Monocytes 1.2 K/UL 0.1-1.7 [facility] - [#/volume] in [facility] Eosinophils 0.1 K/UL 0.0-1.0 [facility] - [#/volume] in [facility] Basophils 0.0 K/UL 0.0-0.4 [facility] - [#/volume] in [facility] Immature 0.1 K/UL 0.0-0.17 [facility] - granulocytes Good [#/volume] in [facility] Automated count Differential [facility] - cell count [facility] ID Date Data Source [id number] 12/10/2019 05:19:23 AM EDT [facility] Name Value Range Interpretation Description Data Sup porting Code Source(s) Document(s ) Service comment [facility] Bacteria [facility] identified in [facility] Unspecified Hospital specimen by Culture ID Date Data Source [id number] 12/05/2019 12:24:35 PM EDT [facility] PELVIS one view.History: TraumaThe study is suboptimal due to the patient's body habitus.There is no evidence of fracture , dislocation, subluxation, bone erosion orarthritis.IMPRESSION: Grossly normal s tudy. Signing date/time: 12/05/2019 12:24 PMSigned by: CURTIS VARMA Name Value Range Interpretation Code Description Data Melani rce(s) Supporting Document(s ) ID Date Data Source [id number] 12/05/2019 12:23:11 PM EDT [facility] CHEST 1 view (s)HISTORY: Chest pain.COMP [place]: [...] Supporting Document(s ) ID Date Data Source [id number] 12/05/2019 11:34:39 AM EDT [facility] BIBA for fall in the middle of the night while going to bathroomC/p left hip pain Name Value Range Interpretation Code Description Data Melani rce(s) Supporting Document(s ) ID Date Data Source [id number] 12/05/2019 11:21:27 AM EDT [facility] Please enter the current weight for this patient in [facility]. Thank you. Name Value Range Interpretation Code Description Data Melani rce(s) Supporting Document(s ) ID Date Data Source [id number] 11/23/2019 02:02:47 PM EDT [facility] Discharge SummaryPatient: Maxwell Mendieta Xiao e Sex: [...] E66.01ICD-9-CM: 278.01 07/19/2018 - Present Spells ICD-10-CM: [id number]-IL: IMO00 01 04/08/2016 - Present Seizure disorder [...] tr eated with parenteral hydration with benefit b5tcwpxqyoltyyctagj responses. Of note i s fact that patient was scheduled to begin ECTtreatment for depression when Covid 1 9 pandemic curtained this plan.Consults: PsychiatrySignificant Diagnostic Studies : labs: microbiology: , radiology: and cardiacgraphics:Discharge Medications: @DISCHARGEMEDLIST@Activity: Activity as toleratedDiet: Resume previous dietWound Care: None neededFollow-up: This examiner to follow in officeRitika Canas MD Name Value Range Interpretation Code Description Data [facility](s) Supporting Document(s ) ID Date Data Source [id number] 11/03/2019 09:41:35 PM EDT [facility] Verbal shift change report given to , RN (oncoming nurse) by Scott Beverly RN (offgoing nurse). Report included the fo llowing information SBAR, Kardex,Intake/Output, MAR and Recent Res ults. Name Value Range Interpretation Code Description Data [facility](s) Supporting Document(s ) ID Date Data Source [id number] 11/03/2019 03:34:07 PM EDT [facility] Per psych note, CM to confirm patient ap pt with psychiatristCall to Dr Mateo Méndez office # [phone], office closedPati ent aware of # to call to make his own appt, psychiat[facility] ent states his will be coming this evening to drive him homeCare Management InterventionsPCP Verified by CM: YesPalliative Care Criteria Met (RRAT>21 & CHF Dx)?: NoMode of Transport at Discharge: Other (see comment)( yanni maciel between approx5-6)Transition of Care Consult (CM Consult): Discharge Planning Physical Therapy Consult: NoOccupational Therapy Consult: NoSpeech Therapy Consul t: NoCurrent Support Network: Lives with Spouse, Own Home( [place] [phone],[phone])Confirm Follow Up Transport: FamilyThe Patient and/or Patient [...] Supporting Document(s ) ID Date Data Source [id number] 11/03/2019 02:45:48 PM EDT [facility] PHYSICAL THERAPY TREATMENTPatient: Maxwell Bray (49 y.o. [...] Supporting Document(s ) ID Date Data Source [id number] 11/03/2019 01:09:08 PM EDT [facility] General Daily Progress NoteAdmit Date: Hospital [...] past 8 hrs: BP Temp Pulse Resp GhH41511/03/19 0752 115 /76 97.6 F (36.4 C) [...] Name Value Range Interpretation Code Description Data [facility](s) Supporting Document(s ) ID Date Data Source [id number] 11/03/2019 10:52:30 AM EDT [facility] S/O patient has seen for follow up via V ideo . He is doing much better. Hedenies any auditory or visual hallucination any mor eHe has no suicidal or homicidal thoughtsHe reports that he sees Dr. marie every ot her weeksPt wants to follow up with Dr. Marie after dischargePlan continue on a ll current psychotropic medications Requesting supervisor case loading to confirm his a ppointment with Dr. mariebefore he discharged Please re consult if n eeded Name Value Range Interpretation Code Description Data Melani rce(s) Supporting Document(s ) ID Date Data Source [id number] 11/03/2019 07:12:34 AM EDT [facility] Bedside and Verbal shift change report g iven to Meño Rose, RN (oncomingnurse) by June Ochoa, SUSI (offgoing nurse). Repor t included the followinginformation SBAR, Kardex, Intake/Output, MAR, Recent Resul ts and Med Rec Status. Name Value Range Interpretation Code Description Data Melani rce(s) Supporting Document(s ) ID Date Data Source [id number] 11/02/2019 11:18:25 PM EDT [facility] Problem: Falls - Risk ofGoal: *Absence o [...] Supporting Document(s ) ID Date Data Source [id number] 11/02/2019 07:34:02 PM EDT [facility] Bedside shift change report given to GILLIAN KEATING (oncoming nurse) by Meño Rose(offgoing nurse). Report included the following information SBAR, Kardex andIntake/Output. Name Value Range Interpretation Code Description Data [facility] rce(s) Supporting Document(s ) ID Date Data Source [id number] 11/02/2019 05:14:50 PM EDT [facility] Telehealth Progress NotePursuant to the emergency declaration [...] [] Telephone [x] VideoconferenceDate: 11/02/2019Account Franny mber: [id number]: Maxwell Robin [employer] Joe PROGRESS NOTE:Coordinated treatment team rounds conducted with psychiatrist, patient, nursesand/or social staff worker present ; dis cussions held with supervisor case loading and/or familymembers; Chart reviewed in full in cluding transformation consultant notes, ancillary staffnotes, vitals and labs in [facility] EMR reviewed in full.SUBJECTIVE: Pt seen for first time on Video with my SW Mendy And RN , hereports less hallucinations , as they are still there in the morning But overall better since got back on vraylar told me was scheduled for ECT at [facility] but due to elective , it [...] past 8 hrs: Temp Pulse Resp BP KpS939/20 1546 98.3 F (36.8 C) 84 18 [...] (LOVENOX) injection 40 mg 40 mg SubCUTAneous H95JPrfumcbtu Medications:C urrent Facility-Administered MedicationsMedication Dose Route Frequen [...] ENOX) injection 40 mg 40 mg SubCUTAneous H96MQUOIYNAHDP/PLAN:Continue current kalie atment as pt is stabalizingPatient [...] Supporting Document(s ) ID Date Data Source [id number] 11/02/2019 03:02:33 PM EDT [facility] General Daily Progress NoteAdmit Date: Hospital [...] (LOVENOX) injection 40 mg 40 mg SubCUTAneous [id number]:Patient Vitals for the past 8 hrs: BP [...] Sagittal and coronal reconstruction was performed.Uti lizing digital marketer algorithm the examination was performed to optimizeimaging [...] Name Value Range Interpretation Code Description Data [facility](s) Supporting Document(s ) ID Date Data Source [id number] 11/02/2019 07:48:14 AM EDT [facility] Verbal shift change report given to Jody wells RN (oncoming nurse) by Juliane UGALDE (offgoing nurse). Report included the following information SBAR,Kardex, Intake/Output, MAR and Recent Results Name Value Range Interpretation Code Description Data [facility](s) Supporting Document(s ) ID Date Data Source [id number] 11/02/2019 05:41:52 AM EDT [facility] Patient AOX3 with periodic confusion. In bed watching TV. All med's given asordered by , tolerated well. Fall precaution m easures reinforced. Call bellwithin reach, bed in low position. Has urinal and comm ode at bedside. Voices nocomplaint at this time. Will continue to monitor pt. Name Value Range Interpretation Code Description Data Melani rce(s) Supporting Document(s ) ID Date Data Source [id number] 11/01/2019 08:46:30 PM EDT [facility] Problem: Falls - Risk ofGoal: *Absence o [...] Supporting Document(s ) ID Date Data Source [id number] 11/01/2019 08:00:09 PM EDT [facility] Verbal shift change report given to Ly vitale RN (oncoming nurse) by SUSI Palacio (offgoing nurse). Report included the following information SBAR,Intake/Output, MAR and Recent Results. Name Value Range Interpretation Code Description Data [facility](s) Supporting Document(s ) ID Date Data Source [id number] 11/01/2019 03:49:42 PM EDT [facility] Adult Progress NoteDate: 11/01/2019Account Number: [id number]: Maxwell Mendieta TrimbleDiagnosis: History of mood and [...] On e Bipolar disorder with severe depression ([facility]) 10/29/2019 Mixed anxiety and depr essive disorder 09/04/2019 Vitamin D deficiency 09/04/2019 Anxiety 0 Bipolar disorder ([facility]) 07/21/2019 Depressive disorder 07/21/2019 Status p ost gastric bypass for obesity 07/21/2019 Morbid obesity ([facility]) 07/21/2019 Severe obesity ([facility]) 07/19/2018 Spells 04/08/2016 Seizure disorder ([facility]) 04/30/2014 Insom kacey 11/04/2013 H/O [...] (LOVENOX) injection 40 mg 40 mg SubCUTAneous [id number] following information was reviewed and discussed: Patient [...] Supporting Document(s ) ID Date Data Source [id number] 11/01/2019 02:42:08 PM EDT [facility] General Daily Progress NoteAdmit Date: Hospital [...] past 8 hrs: BP Temp Pulse Resp BqD001/03/14 0715 101/67 98 F (36.7 C) 70 [...] Sagittal and coronal reconstr uction was performed.Utilizing digital marketer algorithm the examination was performed to optimizeimaging [...] Prominent interstitial markings arefelt to reflect vascular diversified crops farmer 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 Repeat PA andlateral views the chest are advised i f there is clinical concern for pneumoniaor congestive failure.Assessment:Active Pro blems: Bipolar disorder with severe depression (HCC) (10/29/2019)Plan:Improvin g status Name Value Range Interpretation Code Description Data [facility](s) Supporting Document(s ) ID Date Data Source [id number] 11/01/2019 07:08:12 AM EDT [facility] Verbal shift change report given to Chandrakant Albert RN (oncoming nurse) byMelanie Hoffmann RN (offgoing nurse). Report incl uded the following informationSBAR, Kardex, Intake/Output, MAR and Recent Results. Name Value Range Interpretation Code Description Data [facility](s) Supporting Document(s ) ID Date Data Source [id number] 10/31/2019 07:59:03 PM EDT [facility] Verbal shift change report given to Shreya adrian RN (oncoming nurse) by SUSI Palacio (offgoing nurse). Report included the following information SBAR,Kardex, Intake/Output, MAR and Recent Results. Name Value Range Interpretation Code Description Data [facility](s) Supporting Document(s ) ID Date Data Source [id number] 10/31/2019 05:09:32 PM EDT [facility] Telehealth ConsultationPursuant to the e mergency declaration [...] [] Telephone [x] VideoconferenceSubjective:Patient: Maxwell BrayMRN #: [id number]: [id number]: 49 y.o. Sex: maleAdm it Date: 10/29/2019Attending: [...] week Gets together: Once a week Attends pentecostalism service: More than 4 times per year [...] morbidity or mortal ity cardiac cath at [facility] approx 6-8 months ago Other [...] past 8 hrs: BP Temp Pulse Resp [id number]/31/19 0754 120/60 97.2 F (36.2 C) 70 20 95 %MENTA L STATUS EXAM:FINDINGS WITHIN NORMAL LIMITS (WNL) UNLESS OTHERWISE STATED BELOW:Sens orium DTMI9Zkppsgqin Well relatedAppearance: OverweightMotor Behavior: Not examined Speech: [...] Supporting Document(s ) ID Date Data Source [id number] 10/31/2019 04:37:18 PM EDT [facility] [place] [address] [address] [place], [place] [address]VQZZEED: MAXWELL BRAYMRN: [id number]: [id number]#: [id number] DATE: 10/29/2019 CONSULTATIONHISTORY OF PRESENT ILLNESS: The [...] and Klonopin.PAST MEDICAL HISTORY: Cardiac cath at [facility] six to eight months ago, concussions,periodic [...] [facility].Cognitively,he seems to be fair. His memory [...] RONAL AGUIRRE MDDD: 10/30/2019 14:44:41/BR /[id number] / [id number] Name Value Range Interpretation Code Description Data [facility] rce(s) Supporting Document(s ) ID Date Data Source [id number] 10/31/2019 01:47:36 PM EDT [facility] General Daily Progress NoteAdmit Date: Hospital [...] Supporting Document(s ) ID Date Data Source [id number] 10/31/2019 12:59:26 PM EDT [facility] physical Therapy TREATMENTPatient: Maxwell Bray (49 [...] care was discussed wit h: Registered NurseBest nErique, PT,DPT Time Calculation: 24 mins Name Value Range Interpretation Code Description Data [facility] rce(s) Supporting Document(s ) ID Date Data Source [id number] 10/31/2019 07:10:46 AM EDT [facility] Bedside and Verbal shift change report g iven to Samy UGALDE (oncoming nurse)by Cristofer Valenzuela RN (offgoing nurse). Repo rt included the following information SBAR, Kardex, MARand Recent Results. Name Value Range Interpretation Code Description Data [facility] rce(s) Supporting Document(s ) ID Date Data Source [id number] 10/30/2019 11:27:14 PM EDT [facility] Problem: Falls - Risk ofGoal: *Absence o [...] Value Range Interpretation Code Description [facility] ) ID Date Data Source [id number] 10/30/2019 08:09:55 PM EDT [facility] Susi Garcia called as pt has been [...] ordered as non formulary also At [facility] Name Value Range Interpretation Code Description Data [facility] rce(s) Supporting Document(s ) ID Date Data Source [id number] 10/30/2019 08:06:30 PM EDT [facility] Telephoned Dr. Oc tompkins pt's c/o new sy mptoms of hallucinations. Orderedreceived, relayed to RN, SUSI Marroquin on high raw sugar boiler Name Value Range Interpretation Code Description Data [facility] rce(s) Supporting Document(s ) ID Date Data Source [id number] 10/30/2019 08:01:35 PM EDT [facility] Verbal shift change report given to Cecilia wells (oncoming nurse) by Samy Albert RN (offgoing nurse). Report included the fo llowing information SBAR, ProcedureSummary, Intake/Output, MAR and Recent Results. Name Value Range Interpretation Code Description Data [facility] rce(s) Supporting Document(s ) ID Date Data Source [id number] 10/30/2019 02:58:51 PM EDT [facility] Problem: Mobility Impaired (Adult and Pe diatric)Goal: [...] of morbidity or mortality cardiac cath at [facility] approx 6-8 months ago Other unknown [...] Home: NoneCritical Behavior:Neurologic State: AlertOrientation Level: Oriented U8Ucsygeryz: Appropriate for age attention/concentrationSafety/Judgement: Awareness of environmentSkin:Strength:Strength: [...] plan of care.Comments:Thank you for this natasha Enrique, PT,DPT Time Calculation: 19 mins Name Value Range Interpretation Code Description Data Melani rce(s) Supporting Document(s ) ID Date Data Source [id number] 10/30/2019 02:50:37 PM EDT [facility] Telehealth ConsultationPursuant to the e mergency declaration [...] [] Telephone [] VideoconferenceSubjective:Patient: Maxwell BrayMRN #: [id number]: [id number]: 49 y.o. Sex: maleAdm it Date: 10/29/2019Attending: [...] Supporting Document(s ) ID Date Data Source [id number] 10/30/2019 02:06:26 PM EDT [facility] Care Management InterventionsPCP Verifie d by CM: YesPalliative Care Criteria Met (RRAT>21 & CHF Dx)?: NoMode of Transport at Discharge: Other (see comment)(family)Transition of Care Consu lt (CM Consult): Discharge PlanningPhysical Therapy Consult: NoOccupational Therapy Consult: NoSpeech Therapy Consult: NoCurrent Support Network: Lives with Spouse, Own Home( [place] [phone],[phone])Confirm Foll ow Up Transport: FamilyThe Patient and/or Patient Clothing Room Supervisor was Provided with a Choice of Providerand [...] home with his , is completely independent LOAN WORKOUT OFFICER, nohome DME. Patient normally works (pre-covid) and drives. CM dept roleexplained, patient is currently denying any HC or rehab needs and states hiswife will drive him home upon DC. PT eval is ordered and pending. CM dept laila lfollow if patient has any PT needs.CASE MANAGEMENT PSYCHOSOCIAL ASSESSMENTMaxwell Bray Admission Date: 10/29/2019MRN: [id number] of : 1970Current date: 10/30/2019DISCHARGE PLAN: homePatient [...] NoPCP: Ritika Canas MDAdmitting Provider: Cristi Canas MDCENTRA [facility] INCHOMECARE LOAN WORKOUT OFFICER: naPayor: Payor: [facility] / Plan: [facility] /Product Type: HMO /ViOptixo ndary Payor: @PayPalGROUPNAME@Bipolar disorder with severe depression (HCC) [F 31.4]Bipolar disorder with severe depression (HCC) [F31.4]Patient Active Problem List Diagnosis Code H/O gastric bypass Z98.84 Insomnia G47.00 Neuropathic pain of surekha ulder M79.2 Seizure disorder ([facility]) G40.909 Spells R68.89 Severe obesity (HCC) E66. [...] solving and planning: Notes:Adeq uate coping skills: Notes:Voodoo/Cultural barriers: Notes:If unable to assess or n ot applicable: Notes:Suicide Assessment:Primary Diagnosis or Primary Complaint of an Emotional Behavior Disorder: NoPatient is Currently Experiencing Depr ession: NoSuicidal Ideation/Attempts: NoHomicidal Ideation/Attempts: NoAlcohol /Drug Intoxication: NoHallucinations/Delusions: NoPending, A ctive, or Temporary Prison Orders: NoAggressive/Inappropriate Behavior: NoR eadmit Risk:Support Systems: Family member(s)Advanced Care Planning:Confirm Advance Directive: NoneDiscussed with the patient and all questions fully answered . He will call me ifany problems arise. Name Value Range Interpretation Code Description Data Melani rce(s) Supporting Document(s ) ID Date Data Source [id number] 10/30/2019 12:38:13 PM EDT [facility] Daily Progress NoteAdmit Date: Hospital day: .tdSubjective:Patient markedly improved this am, speech now no rmal. Denies possibleinadvertent overdose of chronic meds. Accepting of psych consult . PT toevaluate. Claims symptoms of mild nausea. Meds reviewed claims to be takin gElavil G 150 mg HS ,Klonopin 1 mg twice a day, Haines 300 twice daily, Vraylar3 m g dailyCurrent [...] past 8 hrs: BP Temp Pulse Resp OtB32610/30/19 0727 (!) 130/96 98 F (36.7 C) [...] Supporting Document(s ) ID Date Data Source [id number] 10/30/2019 07:52:05 AM EDT [facility] Verbal shift change report given to Chandrakant rosa RN (oncoming nurse) Tavares UGALDE (offgoing nurse). Report included the fo llowing information SBAR,Kardex, Procedure Summary, Intake/Output, MAR and Recent R esults. Name Value Range Interpretation Code Description Data Melani rce(s) Supporting Document(s ) ID Date Data Source [id number] 10/30/2019 06:40:05 AM EDT [facility] Pt. AOX3, periodic confusion. Commode an d urinal at bedside. Seizure and fallprecaution measures in place. Voice s no complaint during shift . Name Value Range Interpretation Code Description Data Melani rce(s) Supporting Document(s ) ID Date Data Source [id number] 10/30/2019 07:29:12 AM EDT [facility] Name Value Range Interpretation Description Data Sup porting Code Source(s) Document(s ) Sodium 139 136-145 [facility] - [facility] [Moles/volume] mmol/L [facility] in Serum or Hospital Plasma Potassium 3.6 3.5-5.1 [facility] [Moles/volume] mmol/L [facility] in Serum or Hospital Plasma Chloride 110 98-107 Above high normal [facility] [Moles/volume] mmol/L [facility] in Serum or Hospital Plasma Carbon 24 21-32 [facility] dioxide, total mmol/L [facility] [Moles/volume] Hospital in Serum or Plasma Anion gap in 9 mmol/L 10-20 Below low normal [facility] - Go od Serum or [facility] Plasma Hospital Glucose 96 mg/dL 74-106 [facility] [Mass/volume] [facility] in Serum or Hospital Plasma Urea nitrogen 10 mg/dL 7-18 [facility] [Mass/volume] [facility] in Serum or Hospital Plasma Creatinine 0.81 0.70-1.3 [facility] [Mass/volume] mg/dL 0 [facility] in Serum or Hospital Plasma Glomerular >60 [facility] - Good filtration [facility] rate/1.73 sq M Hospital predicted among blacks [Volume Rate/Area] in Serum or Plasma by Creatinine-bas ed formula (MDRD) Glomerular >60 [facility] Good filtration [facility] rate/1.73 sq M Hospital predicted among non-blacks [Volume Rate/Area] in Serum or Plasma by Creatinine-bas ed formula (MDRD) Calcium 8.2 8.5-10.1 Below low normal [facility] - Good [Mass/volume] mg/dL [facility] in Serum or Hospital Plasma ID Date Data Source [id number] 10/30/2019 07:05:07 AM EDT [facility] - [facility] Name Value Range Interpretation Description Data Sup porting Code Source(s) Document(s ) Leukocytes 4.8 K/uL 4.8-10.6 [facility] - [#/volume] in Good Blood by [facility] Automated count [facility] Erythrocytes 4.59 4.70-6.0 Below low normal [facility] - [#/volume] in M/uL 0 Good Blood by [facility] Automated count [facility] Hemoglobin 14.0 14.0-18. [facility] - [Mass/volume] in g/dL 0 Good Blood [facility] Hematocrit 42.7 % 42.0-52. [facility] - [Volume 0 Good Fraction] of [facility] Blood by Hospital Automated count Erythrocyte mean 93.0 FL 81.0-94. [facility] - corpuscular 0 Good volume [Entitic [facility] volume] by Hospital Automated count Erythrocyte mean 30.5 PG 27.0-35. [facility] - corpuscular 0 Good hemoglobin [facility] [Entitic mass] Hospital by Automated count Erythrocyte mean 32.8 30.7-37. [facility] - corpuscular g/dL 3 Good hemoglobin [facility] [Mass/volume] by Automated count Erythrocyte 13.3 % 11.5-14. [facility] - distribution 0 Good width [Ratio] by [facility] Automated count [facility] Platelets 159 K/uL 130-400 [facility] - [#/volume] in Good Blood by [facility] Platelet mean 8.6 FL 9.2-11.8 Below low normal [facility] - volume [Entitic Good volume] in Blood [facility] by Automated Hospital count Nucleated 0.0 PER 0 [facility] - erythrocytes/100 100 WBC Good leukocytes [facility] [Ratio] in Blood Hospital Nucleated 0.00 0.0-0.01 [facility] - erythrocytes K/uL Good [#/volume] in [facility] Segmented 54 % 48.0-72. [facility] - neutrophils/100 0 Good leukocytes in [facility] Lymphocytes/100 32 % 18.0-40. [facility] - leukocytes in 0 [facility] Monocytes/100 9 % 2.0-12.0 [facility] - leukocytes in [facility] Eosinophils/100 5 % 0.0-7.0 [facility] - leukocytes in [facility] Basophils/100 1 % 0.0-3.0 [facility] - leukocytes in [facility] Immature 0 % 0-0.5 [facility] - granulocytes/100 Good leukocytes in [facility] by Hospital Automated count Segmented 2.6 K/UL 2.3-7.6 [facility] - neutrophils Good [#/volume] in [facility] Lymphocytes 1.5 K/UL 0.9-4.2 [facility] - [#/volume] in [facility] Monocytes 0.4 K/UL 0.1-1.7 [facility] - [#/volume] in [facility] Eosinophils 0.2 K/UL 0.0-1.0 [facility] - [#/volume] in [facility] Basophils 0.0 K/UL 0.0-0.4 [facility] - [#/volume] in [facility] Immature 0.0 K/UL 0.0-0.17 [facility] - granulocytes Good [#/volume] in [facility] by Hospital Automated count Differential [facility] - cell count Good method [facility] ID Date Data Source [id number] 10/29/2019 07:40:21 PM EDT [facility] - [facility] Verbal shift change report given to Wai rogers RN(oncoming nurse) by Elizabeth Meehan RN (offgoing nurse). Report included the fo llowing information SBAR, Kardex, EDSummary, Intake/Output, MAR and Recent Results. Name Value Range Interpretation Code Description Data Melani rce(s) Supporting Document(s ) ID Date Data Source [id number] 10/30/2019 06:54:22 PM EDT [facility] Name Value Range Interpretation Description Data Sup porting Code Source(s) Document(s ) Color of Urine [facility] Appearance of CLEAR [facility] - Urine [facility] Specific gravity 1.015 1.003-1. [facility] - of Urine by 030 Good Refractometry [facility] pH of Urine by 6.0 4.6-8.0 [facility] - Test strip [facility] Protein NEG [facility] - [Mass/volume] in Good Urine by Test [facility] Glucose NEG [facility] - [Mass/volume] in Good Urine by [facility] Automated test Hospital strip Ketones NEG [facility] - [Presence] in Good Urine by [facility] Automated test [facility] strip Bilirubin.total NEG [facility] - [Presence] in Good Urine [facility] Hemoglobin NEG [facility] - [Presence] in Good Urine by Test [facility] Urobilinogen 1.0 0.2-1.0 [facility] - [Presence] in EU/dL Good Urine by [facility] Automated test Hospital strip Nitrite NEG [facility] - [Presence] in Good Urine by [facility] Automated test Hospital strip Leukocyte NEG [facility] - esterase Good [Presence] in [facility] Urine by Hospital Automated test strip ID Date Data Source [id number] 10/29/2019 06:14:12 PM EDT [facility] Spoke with to clarify meds..correct doses obtained Name Value Range Interpretation Code Description Data Melani rce(s) Supporting Document(s ) ID Date Data Source [id number] 10/29/2019 06:01:22 PM EDT [facility] Pt unsure of dose of Vraylar will call w berta Name Value Range Interpretation Code Description Data Melani rce(s) Supporting Document(s ) ID Date Data Source [id number] 10/29/2019 03:56:40 PM EDT [facility] [id number] [facility] [employer] [facility] 4 GEMA [place] MED SURG [address] [place] [address] [phone]/12/12 Maxwell Bray (Male) [id number] I 2 ED Dispo:ADMIT Chief Complaint: Dysarthria, Lethargy Diagnosis: Altered mental status, unspecified altered mental statu s type [] Bipolar disorder with severe depression (HCC) [] Current Providers: Att ending: Cole Ernandez; Cristi Canas Consulting Provider: Cristi Canas Primary Nurse: Kristy Moss Tech: HERMANN GonzalesN: [id number] [employer] [phone] - Bs hsi [employer] MrnMRN: [id number] [employer] [phone] - Bsi [employer] Age Sex 1970 AGE 49 SEX Male Primary Care Provider: Ritika Canas MD Uoqndqrww: (No Kn own Allergies)Date Reviewed: 10/29/2019Reviewed by: Ritika Canas MD - Review CompleteED Provider Notes: All no tesHNO ID: [id number]: Cristobal Ernandez MDService: -Author Type: PhysicianFiled: 10/29/19 [...] of morbidity or mortality cardiac cath at [facility] approx 6-8 months ago Other [...] week Gets together: Once a week Attends pentecostalism service: More than 4 times per year [...] QTC Calculation (Bezet) 446 ms Calculated P [place] 53 degrees Calc ulated R [place] 68 degrees Calculated T [place] 0 degrees Diagnosis Sinus tachycardiaProlonged FL intervalNo [...] Time: 10/29/19 10:45 AMResult Value Ref Range Haines level <0.20 (L) 0.6 - 1.2 MMOL/L [...] contrast. Sagittal and coronalreconstruction was performed. Utilizing digital marketer algorithm theexaminationwas performed to optimize imaging quality [...] status, unspecified altered menta l status type [id number] condition at time of disposition: StableI have [...] d thediagnostic studies, unless otherwise noted.+ED Orders [id number] CBC WITH AUTOMATED DIFF [# [id number]] Priority: STAT Class: ER Collect Standing Order Information Remaining Occurrences:0 /1 Interval:ONE TIME Last released:10/29/2019 Released orders: SunOctober 29, 2019 11:02 AM by: CRISTOBAL ERNANDEZ [id number] METABOLIC PANEL, COMPREHENSIVE [#[id number]] Bridgette ority: STAT Class: ER Collect Standing Order Information Remaining Occurrences:0/1 Inter haile:ONE TIME Last released:10/29/2019 Released orders: SunOctober 29, 2019 11:02 AM by: CRISTOBAL WADE [id number] PROTHROMBIN TIME + INR [#[id number]] Priority: STAT Class: E R Collect Standing Order Information Remaining Occurrences:0/1 Interval:ONE TI ME Last released:10/29/2019 Released orders: SunOctober 29, 2019 11:02 AM by: BRIE ERNANDEZ [id number] PTT [#[id number]] Priority: STAT Class: ER Collect Speci men Source: Blood Standing Order Information Remaining Occurrences:0/1 Interval:ONE TI ME Last released:10/29/2019 Released orders: SunOctober 29, 2019 11:02 AM by: AWAIS, BRIE EN [id number] URINALYSIS W/ RFLX MICROSCOPIC [#[id number]] Priority: STAT Class: ER Collect Sta nding Order Information Remaining Occurrences:0/1 Interval:ONE TIME Last released:0 10/29/2019 Released orders: SunOctober 29, 2019 11:02 AM by: CRISTOBAL ERNANDEZ [id number] LITHIUM [#[id number]] Priority: STAT Class: ER Collect Standing Order Information Remaining Occurrences:0/1 Interval:ONE TIME Last released:10/29/2019 Released orders : SunOctober 29, 2019 11:02 AM by: CRISTOBAL ERNANDEZ [id number] CBC WITH AUTOMATED DIFF [# [id number]] Priority: STAT Class: ER Collect Specimen Source: Whole Blood Specimen Collected: 020 10:45 AM Resulting Agency: [facility] Test ID: [id number] Released on: 0 11:02 AM [id number] METABOLIC PANEL, COMPREHENSIVE [#[id number]] Priority: STAT Class: E R Collect Specimen Source: Plasma Specimen Collected: 10/29/2019 10:45 AM Resulting Agency: [facility] Test ID: MPL Released on: 10/29/2019 11:02 AM [id number] PROTHROMBIN TIME + IN R [#[id number]] Priority: STAT Class: ER Collect Specimen Source: Plasma Specimen Collec hyun: 10/29/2019 10:45 AM Resulting Agency: [facility] Test ID: APTHR Released o n: 10/29/2019 11:02 AM [id number] PTT [#[id number]] Priority: STAT Class: ER Collect Specimen Source: Plasma Specimen Collected: 10/29/2019 10:45 AM Resulting Agency: [facility] Test ID: APTT Released on: 10/29/2019 11:02 AM [id number] URINALYSIS W/ RFLX [place] CROSCOPIC [#[id number]] Priority: STAT Class: ER Collect Resulting Agency: [facility] Test ID: UA Released on: 10/29/2019 11:02 AM [id number] LITHIUM [#[id number]] Priority: STAT Class: ER Collect Specimen Source: Serum Specimen Collected: 10/28 10:45 AM Resulting Agency: [facility] Test ID: LI Released on: 10/29/2019 11:02 AM [id number] CBC WITH AUTOMATED DIFF [#[id number]] Priority: STAT Class: E R Collect Standing Order Information Remaining Occurrences:06/25 Interval:TOMORR OW AM [id number] METABOLIC PANEL, BASIC [#[id number]] Priority: STAT Class: ER Collect St anding Order Information Remaining Occurrences:06/25 Interval:TOMORROW AM [id number] CT HEAD W O CONT [#[id number]] Priority: Routine Class: Hospital Performed Standing Or mariano Information Remaining Occurrences:0/1 Interval:ONE TIME Last released:10/29/2019 Released orders: SunOctober 29, 2019 11:02 AM by: CRISTOBAL ERNANDEZ Reason for Exam -> ams IMG 2590 XR CHEST PORT [#[id number]] Priority: STAT Class: Hospital Performe d Standing Order Information Remaining Occurrences:0/1 Interval:ONE TIME Last release d:10/29/2019 Released orders: SunOctober 29, 2019 11:02 AM by: CRISTOBAL ERNANDEZ Reason for Exam -> ams [id number] CT HEAD WO CONT [#[id number]] Priority: STAT Class: Hospital Perfo rmed Specimen Collected: 10/29/2019 11:54 AM Resulting Agency: [facility] Test ID: [id number] [place] son for Exam -> ams Released on: 10/29/2019 11:02 AM [id number] XR CHEST PORT [#[id number]] Priority: STAT Class: Hospital Performed Specimen Collected: 10/29/2019 12:16 PM Resultin g Agency: [facility] Test ID: [id number] Reason for Exam -> ams Released on: 10/29/2019 11:02 AM [id number] EKG, 12 LEAD, INITIAL [#[id number]] Priority: STAT Class: Hospital Performe d Standing Order Information Remaining Occurrences:0/1 Interval:ONE TIME Last release d:10/29/2019 Released orders: SunOctober 29, 2019 11:02 AM by: CRISTOBAL ERNANDEZ Reason for Exam : -> chest pain [id number] EKG, 12 LEAD, INITIAL [#[id number]] Priority: STAT Class: H ospital Performed Resulting Agency: [facility] Test ID: [id number] Reason for Exam: -> chest pain Releas ed on: 10/29/2019 11:02 AM [id number] POC GLUCOSE [#[id number]] Priority: STAT Cl ass: Hospital Performed Standing Order Information Remaining Occurrences:0/1 Interval:ONE TI ME Last released:10/29/2019 Released orders: SunOctober 29, 2019 11:02 AM by: BRIE ERNANDEZ [id number] POC GLUCOSE [#[id number]] Priority: STAT Class: Hospital Performe d Released on: 10/29/2019 11:02 AM [id number] VITAL SIGNS PER UNIT ROUTINE [#[id number]] Priorit y: STAT Class: Hospital Performed Standing Order Information Remaining Occurrences:0/1 Inte rval:CONTINUOUS Last released:10/29/2019 Released orders: SunOctober 29, 2019 2:54 PM by: RITIKA CANAS Comment:More frequently if Indicated. [id number] BEDREST, COMPLETE [#[id number]] Priority: STAT Class: Hospital Performed Standing Order Information Remainin g Occurrences:0/1 Interval:CONTINUOUS Last released:10/29/2019 Released orders : SunOctober 29, 2019 2:54 PM by: RITIKA CANAS [id number] NOTIFY PROVIDER: VITAL SIGNS CHANGES [# [id number]] Priority: STAT Class: Hospital Performed Standing Order [...] Less than 120 ml in 4 hours [id number] APPLY/MAINTAIN SEQUENTIAL COMPRESSIO* [#[id number]] Priority: ST AT Class: Hospital Performed Standing Order Information Remaining Occurrences:0/1 Inter haile:CONTINUOUS Last released:10/29/2019 Released orders: SunOctober 29, 2019 2:54 PM by: RITIKA CANAS [id number] VITAL SIGNS PER UNIT ROUTINE [#[id number]] Priority: STAT Class: H ospital Performed Comment:More frequently if Indicated. Released on: 10/29/2019 2:54 PM [id number] 4 BEDREST, COMPLETE [#[id number]] Priority: STAT Class: Hospital Performed Relea sed on: 10/29/2019 2:54 PM [id number] NOTIFY PROVIDER: VITAL SIGNS CHANGES [#[id number]] Priority: STAT Class: Hospital Performed Temp -> [...] carmen rs Released on: 10/29/2019 2:54 PM [id number] APPLY/MAINTAIN SEQUENTIAL COMPRESSIO* [#[id number]] P riority: STAT Class: Hospital Performed Released on: 10/29/2019 2:54 PM SODIUM CHLORIDE 0.9 % IJ SYRG [#[id number]] Priority: STAT Class: Normal SODIUM CHLORIDE 0.9 % IJ SYRG [#[id number]] Priority: STAT Class: Normal ACETAMINOPHEN 325 MG TABLET [# [id number]] Priority: STAT Class: Normal ENOXAPARIN 40 MG/0.4 ML SUB-Q SYRINGE [#[id number]] Priority: STAT Class: Normal SODIUM CHLORIDE 0.9 % IV [#[id number]] Priority: STAT Class: Normal [id number] GLUCOSE, POC [#[id number]] Priority: Routine Class : ER Collect Resulting Agency: [facility] Test ID: BGG Standing Order Informati on Remaining Occurrences:0/1 Released orders: SunOctober 29, 2019 11:26 AM by: Automatic B [facility] Process [id number] GLUCOSE, POC [#[id number]] Priority: Routine Class : ER Collect Specimen Source: Whole Blood Specimen Collected: 10/29/2019 11:26 AM Resulting Agency: [facility] Test ID: BGG Released on: 10/29/2019 11:26 AM [id number] IP CONSULT TO PRIMARY CARE PROVIDER [#[id number]] Priority: STAT Class: Hospital Performed Standing Order Inf ormation Remaining Occurrences:01 Interval:ONE TIME Last released:10/29/2019 Relea sed orders: SunOctober 29, 2019 12:59 PM by: CRISTOBAL ERNANDEZ Reason for Consult: -> admit Did you call or speak to the consulting provider? -> No Consult To -> dr missael [id number] IP CONSULT TO PRIMAR Y CARE PROVIDER [#[id number]] Priority: STAT Class: Hospital Performed Reason for Consult: -> ad rei Did you call or speak to the consulting provider? -> No Consult To -> dr canas Released on: 12:59 PM CON53 IP CONSULT TO PSYCHIATRY [#[id number]] Priority: STAT Class: H ospital Performed Standing [...] -> TODAY CON53 IP CONSULT TO PSYCHIATRY [#[id number]] Priority: STAT Class: Hospital Performed Reason for Consult: -> 49 yo male with severe bipolar diseas e, admitted with slurred speech, severe weakness Did you call or speak to t he consulting provider? -> No Consult To -> Dr Aguirre Schedule When? -> TODAY Released on: 10/29/2019 2:54 PM [id number] INITIAL PHYSICIAN ORDER: INPATIENT [#[id number]] Priority: Routine Class : ADT Pend Transfer [...] Discharge Plan: -> Home with Office Follow-up [id number] INITIAL PHYSICIAN ORDER: INPATIENT [# [id number]] Priority: Routine Class: ADT Pend Transfer Status: [...] Foll ow-up Released on: 10/29/2019 2:43 PM [id number] INITIAL PHYSICIAN ORDER: INPATIENT [#[id number]] Priority: Routine Class: ADT Pend Transfer [...] 3-4 Midnights Discharge Plan: -> Other (Specify) [id number] INITIAL PHYSIC JOSE ORDER: INPATIENT [#[id number]] Priority: Routine Class: ADT Pend Transfer Status: [...] 2:54 PM IVT3 INSERT PERIPHERAL IV [# [id number]] Priority: STAT Class: Hospital Performed Standing Order Information Remaining Occurre nces:0/1 Interval:ONE TIME Last released:10/29/2019 Released orders: SunOctober 28, 020 2:54 PM by: RITIKA CANAS IVT3 INSERT PERIPHERAL IV [#[id number]] Priority: ST AT Class: Hospital Performed Released on: 10/29/2019 2:54 PM CON75 IP CONSULT TO PHYSICAL THERAPY [#[id number]] Priority: STAT Class: Hospital Performed Standing Order Information Remainin g Occurrences: Interval:DAILY Last released:10/29/2019 Released orders : SunOctober 29, 2019 2:54 PM by: RITIKA CANAS CON75 IP CONSULT TO PHYSICAL THERAPY [#[id number]] Priority: STAT Class: Hospital Performed Released on: 10/29/2019 2:54 PM COD2 FULL CODE [#[id number]] Priority: STAT Class: Hospital Performed Standing Order Inf ormation Remaining Occurrences:0/1 Interval:CONTINUOUS Last released:10/29/2019 Rel eased orders: SunOctober 29, 2019 2:54 PM by: RITIKA CANAS COD2 FULL CODE [#[id number]] Priority: STAT Class: Hospital Performed Released on: 10/29/2019 2:54 PM DIET10 4 DIET FULL LIQUID [#[id number]] Priority: STAT Class: Hospital Performed Stand ing Order Information Remaining Occurrences:0/1 Interval:DIET EFFECTIVE NOW Last released:10/29/2019 Released orders: SunOctober 29, 2019 2:54 PM by: RITIKA CANAS Comment:A dvance as tolerated to regular diet [id number] DIET FULL LIQUID [#[id number]] Priority: STAT Class: Hospital Performed Comment:Advance as tolerated to regular diet Released on: 10/29/2019 2:54 JesusitaMaxwell mcleod MR#: [id number] * Rm: [id number]: 5' 7" Wt: 3 00 lb Code: Full Code Iso:Diagnosis:Bipolar disorder with severe depression (HCC) [F31.4]Allergies : No Known Allergies -------- Current as of: 10/29/19 1556 ---aspirin (ASPIRIN) tablet 325 mg #[id number] Admin Amount: 1 Tab (1 x 325 mg Tab) Ordered Dose: 325 mg Route: Oral Freq: ONCE Start Date: 12/24/13 No administration times (back 96 hours, ahead 96 hours). ------diphenhydrAMINE (BENADRYL) capsule 50 mg #[id number] Admin Amount: 1 Cap (1 x 50 mg Cap) Ordered Dose: 50 mg Ro ely shosh[place]: Oral Freq: NOW Start Date: 12/24/13 No administration times (back 96 hours, e ad 96 hours). ------diazepam (VALIUM) tablet 5 mg #[id number] Admin Amount: 1 Tab (1 x 5 mg Tab) Ordered Dose: 5 mg Route: Ora l Freq: ONCE Start Date: 12/24/13 No administration times (back 96 hours, e ad 96 hours). ------lidocaine (XYLOCAINE) 10 mg/mL (1 %) injection 1-30 mL #[id number] Admin Amount: 1-30 mL Ordered Dose: 1-30 mL Route: IntraDERMal Freq: ONC E Start Date: 12/24/13 No administration times (back 96 hours, ahead 96 hours). ------heparin (PF) 2 units/ml in NS infusion 2,000 Units #[id number] Admin Amount: 1,000 mL = 2,000 Units of 2 Units/mL Ordered Dose: 1,000 mL Route: Irrigation Freq: ONCE Start Date: 12/24/13 No administration times (b ack 96 hours, ahead 96 hours). ------heparinized saline 2 units/mL infusion 1,000 Units #[id number] Admin Amount: 500 mL = 1,000 Units of 2 Units/mL Ordered Dose: 500 mL R oute: IntraarTERial Freq: ONCE Start Date: 12/24/13 No administration times (back 96 hours, ahead 96 hours). ------0.9% sodium chloride infusion #[id number] Ordered Dose: 75 mL/hr Route: IntraVENous Freq: CONTINUOUS Start Date: 12/24/13 Rate: 75 mL/hr Duration: No administration times (back 96 hours, ahead 96 hours). ------ioversol (OPTIRAY) 320 mg iodine/mL contrast injection 1-100 mL #[id number] Admin Amount: 1-100 mL Ordered Dose: 1-100 mL Route: IntraVENous Freq: RAD ONCE Start Date: 12/24/13 No administration times (back 96 hours, ahead 96 hours).Maxwell Bray MR#: [id number] * Rm: [id number]: 5' 7" Wt: 300 lb Code: Full Code Iso:Diagnosis:Bipolar disorder with severe depression (HCC) [F31.4]Allergies: No Kn own Allergies -------- Current as of: 10/29/19 1556 ---gadobutrol (GADAVIST) contrast solution 1-10 mL #[id number] Admin Amount: 1-10 mL Ordered Dose: 1-10 mL Route: IntraVENo us Freq: RAD ONCE Start Date: 01/13/14 No administration times (back 96 hours, [facility] ad 96 hours). ------sodium chloride (NS) flush 5-10 mL #[id number] Admin Amount: 5-10 mL Ordered Dose: 5-10 mL Route: IntraVENous Freq: RA D ONCE Start Date: 01/13/14 No administration times (back 96 hours, ahead 96 hours). ------sodium chloride (NS) 0.9 % flush #[id number] Ordered Dose: Route: Freq: Start D ate: 01/13/14 No administration times (back 96 hours, ahead 96 hours). ------morphine injection 2 mg #[id number] Admin Amount: 1 mL = 2 mg of 2 mg/mL Ordered Dose: 2 mg Route: Int raVENous Freq: NOW Start Date: 03/13/15 No administration times (back 96 hours, [facility] ad 96 hours). ------influenza vaccine (4 yr+)(PF) (FLUCELVAX QUAD) inj ection 0.5*#[id number] Admin Amount: 0.5 mL Ordered Dose: 0.5 mL Route: IntraMUSCular Freq : PRIOR TO DISCHARGE Start Date: 03/30/16 No administration times (back 96 hours, ahead 96 hours). ------oxyCODONE-acetaminophe n (PERCOCET) 5-325 mg per tablet 1 Tab #[id number] Admin Amount: 1 Tab Ordered Dose: 1 Tab Route: Oral Freq: NOW Start Date: 09/07/17 No administration times (back 96 hours, ahead 96 hours). ------barium sulfate (READICAT) 2.1 % (w/v), 2.0 % (w /w) oral suspension 9*#[id number] Admin Amount: 900 mL Ordered Dose: 900 mL Route: Ora l Freq: RAD ONCE Start Date: 10/15/17 No administration times (back 96 hours, ahe ad 96 hours). ------iopamidol (ISOVUE 300) 61 % contrast injection 100 mL #[id number] Admin Amount: 100 mL Ordered Dose: 100 mL Route: IntraVENous Freq: RAD O NCE Start Date: 10/15/17 No administration times (back 96 hours, ahead 96 hours).Maxwell Bray MR#: [id number] * Rm: [id number]: 5' 7" Wt: 300 lb Cod e: Full Code Iso:Diagnosis:Bipolar disorder with severe depression (HCC) [F31.4]Allergies: No Kn own Allergies -------- Current as of: 10/29/19 1556 ---risperiDONE (RisperDAL m-tabs) disintegrating tablet 1 mg #[id number] Admin Amount: 1 Tab (1 x 1 mg Tab) Ordered Dose: 1 mg Ro ely shoshone: Oral Freq: ONCE Start Date: 12/24/17 No administration times (back 96 hours, e ad 96 hours). ------ALPRAZolam (XANAX) tablet 2 mg #[id number] Admin Amount: 4 Tab (4 x 0.5 mg Tab) Ordered Dose: 2 mg Route: Ora l Freq: NOW Start Date: 12/24/17 No administration times (back 96 hours, e ad 96 hours). ------lamoTRIgine (LaMICtal) tablet 100 mg #[id number] Admin Amount: 1 Tab (1 x 100 mg Tab) Ordered Dose: 100 mg Route: Ora l Freq: ONCE Start Date: 12/24/17 No administration times (back 96 hours, e ad 96 hours). ------OLANZapine (ZyPREXA zydis) disintegrating tablet 5 mg #[id number] Admin Amount: 1 Tab (1 x 5 mg Tab) Ordered Dose: 5 mg Route: Ora l Freq: ONCE Start Date: 12/25/17 No administration times (back 96 hours, e ad 96 hours). ------LORazepam (ATIVAN) tablet 2 mg #[id number] Admin Amount: 4 Tab (4 x 0.5 mg Tab) Ordered Dose: 2 mg Route: Ora l Freq: NOW Start Date: 12/25/17 No administration times (back 96 hours, e ad 96 hours). ------LORazepam (ATIVAN) injection 1 mg #[id number] Admin Amount: 0.5 mL = 1 mg of 2 mg/mL Ordered Dose: 1 mg Ro ely shoshone: IntraVENous Freq: NOW Start Date: 12/25/17 No administration times (back 96 hours, ahead 96 hours). ------barium sulfate (EZ PAQUE) 96 % (w/w) contrast suspension 17 6 g #[id number] Admin Amount: 176 g Ordered Dose: 176 g Route: Oral Freq: RAD ONCE Start Date: 08/02/18 No administration times (back 96 hours, ahead 96 hours). ------barium sulfate (EZ PAQUE) 96 % (w/w) contrast suspension 17 6 g #[id number] Admin Amount: 176 g Ordered Dose: 176 g Route: Oral Freq: RAD ONCE Start Date: 08/02/18 No administration times (back 96 hours, ahead 96 hours).Maxwell Bray MR#: [id number] * Rm: [id number]: 5' 7" Wt: 300 lb Code: Full Co de Iso:Diagnosis:Bipolar disorder with severe depression ([facility]) [F31.4]Allergies: No Known Allergies -------- Current as of: 10/29/19 [employer] ---aspirin chewable tablet 162 mg #[id number] Admin Amount: 2 Tab (2 x 81 mg Tab) Ordered Dose: 162 mg Route: Ora l Freq: NOW Start Date: 08/10/19 No administration times (back 96 hours, ahe ad 96 hours). ------0.9% sodium chloride infusion 1,000 mL #[id number] Admin Amount: 1,000 mL Ordered Dose: 1,000 mL Route: IntraVENous Freq: O NCE Start Date: 08/16/19 Rate: 1,000 mL/hr Duration: No administratio n times (back 96 hours, ahead 96 hours). ------methylPREDNISolone (PF) (Solu-MEDROL) injection 125 mg #[id number] Admin Amount: 2 mL = 125 mg of 125 mg/2 mL Ordered Dose: 125 mg Ro ely shoshone: IntraVENous Freq: NOW Start Date: 08/16/19 No administration times (back 9 6 hours, ahead 96 hours). ------aspirin chewable tablet 162 mg #[id number] Admin Amount: 2 Tab (2 x 81 mg Tab) Ordered Dose: 162 mg Route: Loretta cadena Freq: NOW Start Date: 08/16/19 No administration times (back 96 hours, ahe ad 96 hours). ------sodium chloride (NS) flush 5-40 mL #[id number] Admin Amount: 5-40 mL Ordered Dose: 5-40 mL Route: IntraVENous Freq: RONA NOLAN 8 HOURS Start Date: 10/29/19 Administration times (back 96 hours, ahead 96 hours): : 1400 2200 10/30/19: 0600 1400 2200 10/31/19: 0600 1400 2200 11/01/19: 0600 1400 2200 11/02/19: 0600 1400 ---sodium chloride (NS) flush 5-40 mL #[id number] Admin Amount: 5-40 mL Ordered Dose: 5-40 mL Route: IntraVENous Freq: NEEDED Start Date: 10/29/19 No administration times (back 96 hours, ahead 96 hours). ------acetaminophen (TYLENOL) tablet 650 mg #[id number] Admin Amount: 2 Tab (2 x 325 mg Tab) Ordered Dose: 650 mg Ro ely shoshone: Oral Freq: EVERY 4 HOURS NEEDED Start Date: 10/29/19 No administration times (back 96 hours, e ad 96 hours).Maxwell Bray MR#: [id number] * Rm: [id number]: 5' 7" Wt: 3 00 lb Code: Full Code Iso:Diagnosis:Bipolar disorder with severe depression (HCC) [F31.4]Allergies : No Known Allergies -------- Current as of: 10/29/19 1556 ---enoxaparin (LOVENOX) injection 40 mg #[id number] Admin Amount: 0.4 mL = 40 mg of 40 mg/0.4 mL Ordered Dose: 40 mg Route: SubCUTAneous Freq: EVERY 24 HOURS Start Date: 10/29/19 Administration times (back 96 hours, ahead 96 hours): 10/29/19: 145410/30/19: 145410/31/19: 145411/01/19: 145411/02/19 : 1455 ---0.9% sodium chloride infusion #[id number] Ordered Dose: 100 mL/hr Route: IntraVENous Freq: [...] Supporting Document(s ) ID Date Data Source [id number] 10/29/2019 03:54:13 PM EDT [facility] History & PhysicalBrian Anam Bray is a [...] chest x-ray which isunremarkable, complete blood count [facility] is unremarkable, normal comprehensivemetabolic panel, and [...] of morbidity or mortality cardiac cath at [facility] approx 6-8 months ag o Other [...] week Gets together: Once a week Attends pentecostalism service: More than 4 times per year [...] trast. Sagittal and coronal reconstruction was performed.Utilizing digital marketer alg orithm the examination was performed to [...] QTC Calculation (Bezet) 446 ms Calculated P [place] 53 degrees Calculat ed R [place] 68 degrees Calculated T [place] 0 degrees Diagnosis Sinus tachycardiaProl onged [place] [...] lydia: 10/29/19 10:45 AMResult Value Ref Range Haines level <0.20 (L) 0.6 - 1.2 MMOL/L GLUCOSE, POC Collection Time: 10/29/19 11:26 AMResult Value Ref Range Glucose, bedsid e 102 65 - 110 MG/DLAll lab results for the last 24 hours reviewed.Assessment/PlanAc tive Problems: Bipolar disorder with severe depression (HCC) (10/29/2019) possible [place] dvertentoverdoseGeaustin Canas MD Name Value Range Interpretation Code Description Data Melani rce(s) Supporting Document(s ) ID Date Data Source [id number] 10/29/2019 03:42:10 PM EDT [facility] TRANSFER - OUT REPORT:Verbal report give n [...] Supporting Document(s ) ID Date Data Source [id number] 10/29/2019 02:28:59 PM EDT [facility] The history is provided by the spouse.10 [...] morbidity or mortal ity cardiac cath at [facility] approx 6-8 months ago Other [...] week Gets together: Once a week Attends pentecostalism service: More than 4 times per year [...] QTC Calculation (Bezet) 446 ms Calculated P [place] 53 degr ees Calculated R [place] 68 degrees Calculated T [place] 0 degrees Diagnosis Sinus tachycar diaProlonged [place] [...] lydia: 10/29/19 10:45 AMResult Value Ref Range Haines level <0.20 (L) 0.6 - 1.2 MMOL/L [...] Sagittal and coronalreconstru ction was performed. Utilizing digital marketer algorithm the examinationwas performed t o optimize [...] Supporting Document(s ) ID Date Data Source [id number] 10/29/2019 12:17:28 PM EDT [facility] XR CHEST PORTCLINICAL INDICATION PROVIDE D:. "ams."TECHNIQUE.: [...] Supporting Document(s ) ID Date Data Source [id number] 10/29/2019 11:55:[address] [facility] [address] HEAD WO CONTClinical data: amsPriors: 03/13/2015.Technique: Multiple axial images were obtained from the skullbase to the vertexwithout administration of intravenous contrast. Sagittal and coronalreconstru ction was performed. Utilizing digital marketer algorithm the examinationwas performed t o optimize [...] Supporting Document(s ) ID Date Data Source [id number] 10/29/2019 11:48:34 AM EDT [facility] Name Value Range Interpretation Description Data Sup porting Code Source(s) Document(s ) Glucose 102 MG/DL 65-110 [facility] - Good [Mass/volume] [facility] in Blood by [facility] Automated test strip ID Date Data Source [id number] 10/29/2019 10:49:56 AM EDT [facility] Patient lethargic, BIBA from home for le thargy and slurred speech. Name Value Range Interpretation Code Description Data Melani rce(s) Supporting Document(s ) ID Date Data Source [id number] 10/29/2019 11:29:33 AM EDT [facility] Name Value Range Interpretation Code Description Data Supporting Source(s) Document(s ) Haines 0.6-1.2 Below low normal [facility] - Good [Moles/volum [facility] e] in Serum Hospital or Plasma ID Date Data Source [id number] 10/29/2019 11:28:52 AM EDT [facility] Name Value Range Interpretation Description Data Sup porting Code Source(s) Document(s ) Sodium 136 136-145 [facility] - Good [Moles/volume] mmol/L [facility] in Serum or Hospital Plasma Potassium 4.4 3.5-5.1 [facility] - Good [Moles/volume] mmol/L [facility] in Serum or Hospital Plasma Chloride 106 98-107 [facility] - Good [Moles/volume] mmol/L [facility] in Serum or Hospital Plasma Carbon 22 21-32 [facility] - Good dioxide, total mmol/L [facility] [Moles/volume] Hospital in Serum or Plasma Anion gap in 12 10-20 [facility] - Good Serum or mmol/L [facility] Glucose 108 74-106 Above high normal [facility] - Good [Mass/volume] mg/dL [facility] in Serum or Hospital Plasma Urea nitrogen 16 mg/dL 7-18 [facility] - Good [Mass/volume] [facility] in Serum or Hospital Plasma Creatinine 1.05 0.70-1.3 [facility] - Good [Mass/volume] mg/dL 0 [facility] in Serum or Hospital Plasma Glomerular >60 [facility] - Good filtration [place] rate/1.73 sq M Hospital predicted among blacks [Volume Rate/Area] in Serum or Plasma by Creatinine-bas ed formula (MDRD) Glomerular >60 [facility] - Good filtration [place] rate/1.73 sq M Hospital predicted among non-blacks [Volume Rate/Area] in Serum or Plasma by Creatinine-bas ed formula (MDRD) (NOTE)Estimated GFR is calculated using the Modification of Diet in RenalDisease (MDRD) Study equation, reported for both Americans(GFRAA) and non- Americans (GFRNA), and normalized to 1.7 9o1proa surface area. The physician must decide which [...] 8.5-10.1 [facility] - Good Serum or Plasma [facility] ital Bilirubin.total 0.7 mg/dL 0.2-1.0 [facility] - Good [Mass/volume] in Serum or [facility] Plasma Alanine aminotransferase 30 U/L 13-61 [facility] - Good [Enzymatic activity/volume] [facility] in Serum or Plasma Aspartate aminotransferase 27 U/L 15-37 [facility] HS - Good [Enzymatic activity/volume] [facility] in Serum or Plasma by With P-5'-P Alkaline phosphatase 139 U/L 45-117 Above high [facility] - Good [Enzymatic activity/volume] normal [facility] in Serum or Plasma Protein [Mass/volume] in 7.6 g/dL 6.4-8.2 [facility] - Good Serum or Plasma [facility] ital Albumin [Mass/volume] in 3.9 g/dL 3.5-4.7 [facility] - Good Serum or Plasma by [facility] Bromocresol purple (BCP) dye binding method Globulin [Mass/volume] in 3.7 g/dL 1.7-4.7 [facility] - Good Serum by calculation [facility] Albumin/Globulin [Mass 1.0 0.7-2.8 [facility] - Good Ratio] in Serum or Plasma [facility] ID Date Data Source [id number] 10/29/2019 11:20:29 AM EDT [facility] Name Value Range Interpretation Description Data Sup porting Code Source(s) Document(s ) aPTT in 22.2 SEC 21.0-28. [facility] - Good Platelet poor 0 [facility] plasma by [facility] Coagulation assay Therapeutic Range = 42.0-60.0 secs ID Date Data Source [id number] 10/29/2019 11:20:29 AM EDT [facility] - Good [facility] Name Value Range Interpretation Description Data Sup porting Code Source(s) Document(s ) Prothrombin 10.3 sec 9.4-11.1 PSYCHIATRICS - Good time (PT) [facility] INR in 1.0 0.8-1.2 [facility] - Good Platelet poor [facility] plasma by [facility] Coagulation assay ID Date Data Source [id number] 10/29/2019 11:11:49 AM EDT [facility] Name Value Range Interpretation Description Data Sup porting Code Source(s) Document(s ) Leukocytes 8.1 K/uL 4.8-10.6 [facility] - [#/volume] in Good Blood by [facility] Automated count [facility] Erythrocytes 5.52 4.70-6.0 [facility] - [#/volume] in M/uL 0 Good Blood by [facility] count [facility] Hemoglobin 16.7 14.0-18. [facility] - [Mass/volume] in g/dL 0 Good Blood [facility] Hematocrit 51.8 % 42.0-52. [facility] - [Volume 0 Good Fraction] of [facility] Blood by Hospital Automated count Erythrocyte mean 93.8 FL 81.0-94. [facility] - corpuscular 0 Good volume [Entitic [facility] volume] by Hospital Automated count Erythrocyte mean 30.3 PG 27.0-35. [facility] - corpuscular 0 Good hemoglobin [facility] [Entitic mass] Hospital by Automated count Erythrocyte mean 32.2 30.7-37. [facility] - corpuscular g/dL 3 Good hemoglobin [facility] concentration Hospital [Mass/volume] by Automated count Erythrocyte 13.2 % 11.5-14. [facility] - distribution 0 Good width [Ratio] by [facility] Automated count Hospital Platelets 193 K/uL 130-400 [facility] - [#/volume] in [facility] Blood by [facility] Automated count Hospital Platelet mean 8.6 FL 9.2-11.8 Below low normal [facility] - volume [Entitic Good volume] in Blood [facility] by Automated Hospital count Nucleated 0.0 PER 0 [facility] - erythrocytes/100 100 WBC Good leukocytes [facility] [Ratio] in Blood [facility] Nucleated 0.00 0.0-0.01 [facility] - erythrocytes K/uL Good [#/volume] in [facility] Segmented 79 % 48.0-72. Above high normal [facility] - neutrophils/100 0 [facility] leukocytes in [facility] Lymphocytes/100 10 % 18.0-40. Below low normal [facility] - leukocytes in 0 [facility] Monocytes/100 8 % 2.0-12.0 [facility] - leukocytes in [facility] Eosinophils/100 1 % 0.0-7.0 [facility] - leukocytes in [facility] Basophils/100 0 % 0.0-3.0 [facility] - leukocytes in [facility] Immature 1 % 0-0.5 Above high normal [facility] - granulocytes/100 Good leukocytes in [facility] Blood by Hospital Automated count Segmented 6.4 K/UL 2.3-7.6 [facility] - neutrophils Good [#/volume] in [facility] Lymphocytes 0.8 K/UL 0.9-4.2 Below low normal [facility] - [#/volume] in [facility] Monocytes 0.7 K/UL 0.1-1.7 [facility] - [#/volume] in [facility] Eosinophils 0.1 K/UL 0.0-1.0 [facility] - [#/volume] in [facility] Basophils 0.0 K/UL 0.0-0.4 [facility] - [#/volume] in [facility] Immature 0.1 K/UL 0.0-0.17 [facility] - granulocytes Good [#/volume] in [facility] Automated count Differential [facility] - cell count Good [facility] ID Date Data Source [id number] 09/15/2019 09:44:01 AM EDT [facility] Clinical Indications/Reason For Exam: pa in.AP, open-mouth [...] Supporting Document(s ) ID Date Data Source [id number] 09/15/2019 09:41:40 AM EDT [facility] THORACIC SPINE 4 views.History: Pain.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 Signing date/time: 09/15/2019 9:41 AMSigned by: CURTIS VARMA Name Value Range Interpretation Code Description Data Melani rce(s) Supporting Document(s ) ID Date Data Source [id number] 09/15/2019 09:40:53 AM EDT [facility] Clinical indications with reason for exa m: [...] Name Value Range Interpretation Code Description Data [facility] rce(s) Supporting Document(s ) ID Date Data Source [id number] 08/17/2019 08:25:20 AM [facility] History: Chest PainTechnique: Portable c hest x-ray 08/16/2019 9:40 PMComparison: 08/11/2019. FINDINGS: There is linear ate lectasis in the left lung base.No focal infiltrate or effusion is identified. Ev aluation of the cardiac silhouette is limited by projection.The visualized osseous str uctures appear unremarkable.IMPRESSION: No focal infiltrate or effusion Signing marlon e/time: 08/17/2019 8:25 AMSigned by: RMAANDEEP SANTANA Name Value Range Interpretation Code Description Data [facility] rce(s) Supporting Document(s ) ID Date Data Source [id number] 08/16/2019 11:12:22 PM [facility] The history is provided by the patient, [...] m orbidity or mortality cardiac cath at [facility] approx 6-8 months ago Other [...] e Gets together: Not on file Attends pentecostalism service: Not on file 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 [...] Calculation (Bezet) 429 ms Ca lculated P [place] 36 degrees Calculated R [place] 77 degrees Calculated T [place] -24 degrees Diagnosis Sinus tachycardiaBorderline T abnormalities, [...] Time: 08/16/19 9:00 PMResult Value Ref Range Haines level 0.21 (L) 0.6 - 1.2 MMOL/LEKG: sinus tach ycardia, rate 109Radiology:CXR: no acute findings<EMERGENCY DEPARTMENT CASE [facility]>Impression/Differential Diagnosis: Allergic reaction allergic, drug reactio n,ACS, pulmonary embolismED Course: Patient presents short of breath and mildly tach ycardic complainingof new onset rash to face anterior chest and posterior chest.Plan: Labs, chest x-ray, EKG, troponin, d-dimer, prednisone, Pepcid, sfrjgtuvgyt38:04 PM patient verbalizes relief of symptoms rash has faded. He denies chestpain he denie s shortness of breath.Patient was advised that we cannot rule out allergic drug re action as he isrecently just restarted taking his lithium. Patient advised to discuss takinglithium with his psychiatrist as soon as possible.Patient reassessed at [facility] by me. Feels better at present, wants to go home.Patient was told to follow up with the primary doctor in 1-2 days [facility] any worsening severe pain, [...] time of disposition: stableI have reviewed the [facility] medications:Prior to Admission medicationsMedication Sig Start [...] 36N*ENCOUNTER 08/16/2019 10:46:05 PM EST [facility] [id number] [facility] EMERGENCY DEPARTMENT [address] [place] [id number] [phone] Maxwell Bray (Male) [id number] ES I 3 ED Dispo:DISCHARGE Chief Complaint: Allergic Reaction Diagnosis: Allergic reaction, initial encounter [] Allergic reaction to drug, in itial encounter [] Current Providers: Attending: Javier Quezada Nurse Practitioner: Javier Ward Primary Nurse: HARINDER AcuñaN: [id number] [employer] [id number] - [facility] Ed Medva MrnMRN: [id number] [employer] [phone] - [facility] Ed Medva Age Sex 1970 AGE 49 SEX Male Primary Care Provider: Ritika Canas MD Jdqosovie: (No Known Allergies)Date Reviewed: 08/16/2019Reviewed by: Zahraa Prince RN - Review CompleteED Provider Notes: No not es of this type exist for this encounter.ED Orders BUPROPION XL 300 MG 24 HR TAB [#[id number]] Priority: Routine Class: Historical Med LITHIUM CARBONATE 150 MG CAP [#[id number]] Priority: Routine Class: Historical Med FAMOTIDINE 20MG + NS 10 ML IV [#[id number]] Priority: STAT Class: Normal H2RA INDICATION -> Adverse reaction/Anaphylaxis SODIUM CH LORIDE 0.9 % IV [#[id number]] Priority: STAT Class: Normal METHYLPREDNISOLONE (PF) 125 MG/2 ML * [#[id number]] Priority: STAT Class: Normal ASPIRIN 81 MG CHEWABLE TAB [# [id number]] Priority: STAT Class: Normal PREDNISONE 50 MG TAB [#[id number]] Bridgette ority: Routine Class: Normal [id number] CORONER/MEDICAL EXAMINER - ED ONLY [#[id number]] Priority: STAT C lass: Hospital Performed Standing Order Information Remaining Occurrences:0/1 Interval:Contin uous Last released:08/16/2019 Released orders: Sat Aug 16, 2019 9:02 PM by: Javier POLLOCK Type: -> Bedside [id number] OBTAIN OLD EKG [#[id number]] Priority: Routi ne Class: Hospital Performed Standing Order Information Remaining Occurrences:0/1 Inter haile:ONE TIME Last released:08/16/2019 Released orders: Sat Aug 16, 2019 9:02 PM by: INDIO WARD [id number] PULSE OXIMETRY CONTINUOUS [#[id number]] Priority: STAT Class: H ospital Performed Standing Order Information Remaining Occurrences:0/1 Interval:CONTIN UOUS Last released:08/16/2019 Released orders: Sat Aug 16, 2019 9:02 PM by: Javier POLLOCK [id number] CORONER/MEDICAL EXAMINER - ED ONLY [#[id number]] Priority: STAT Class: Hospital Perfo rmed Type: -> Bedside Released on: 08/16/2019 9:02 PM [id number] OBTAIN OLD EKG [#[id number]] Priority: STAT Class: Hospital Performed Released on: 08/16/2019 9:02 PM [id number] PULSE OXIMETRY CONTINUOUS [#[id number]] Priority: STAT Class: Hospital Performed Relea sed on: 08/16/2019 9:02 PM [id number] DIET NPO [#[id number]] Priority: STAT Cla ss: Hospital Performed Standing Order Information Remaining Occurrences:0/1 Interval:DIET E FFECTIVE NOW Last released:08/16/2019 Released orders: Sat Aug 16, 2019 9:02 PM by: INDIO WARD NPO options: -> With Meds [id number] DIET NPO [#[id number]] Priority: STAT Class: Hospital Performed NPO options: -> With Meds Released on: 08/16/2019 9:02 PM [id number] SALINE LOCK IV [#[id number]] Priority: STAT Class: Hospital Performe d Standing Order Information Remaining Occurrences:0/1 Interval:ONE TIME Last released: 08/16/2019 Released orders: Sat Aug 16, 2019 9:02 PM by: INDIO POLLOCK [id number] SALIN E LOCK IV [#[id number]] Priority: STAT Class: Hospital Performed Released on : 08/16/2019 9:02 PM [id number] METABOLIC PANEL, COMPREHENSIVE [#[id number]] Priority: STAT Class: E R Collect Standing Order Information Remaining Occurrences:0/1 Interval:ONE TIME Last r eleased:08/16/2019 Released orders: Sat Aug 16, 2019 9:02 PM by: INDIO POLLOCK [id number] CBC WITH AUTOMATED DIFF [#[id number]] Priority: STAT Class: ER Collect Standing Order Info rmation Remaining Occurrences:0/1 Interval:ONE TIME Last released:08/16/2019 Released orders: Sat Aug 16, 2019 9:02 PM by: INDIO POLLOCK [id number] TROPONIN I [#[id number]] Priority: STAT Class: ER Collect Standing Order Information Remaining Occurre nces:0/1 Interval:ONE TIME Last released:08/16/2019 Released orders: Sat Aug 16 9:02 PM by: INDIO POLLOCK [id number] MAGNESIUM [#[id number]] Priorit y: STAT Class: ER Collect Standing Order Information Remaining Occurrences:0/1 Inter haile:ONE TIME Last released:08/16/2019 Released orders: Sat Aug 16, 2019 9:02 PM by: INDIO WARD [id number] D DIMER [#[id number]] Priority: STAT Class: E R Collect Standing Order Information Remaining Occurrences:0/1 Interval:ONE TIME Last r eleased:08/16/2019 Released orders: [facility] Aug 16, 2019 9:02 PM by: INDIO POLLOCK [id number] METABOLIC PANEL, COMPREHENSIVE [#[id number]] Priority: STAT Class: ER Collect Specimen Source: Plas ma Specimen Collected: 08/16/2019 9:00 PM Resulting Agency: [facility] Test ID: [id number] Released on: 08/16/2019 9:02 PM [id number] CBC WITH AUTOMATED DIFF [#[id number]] Prior ity: STAT Class: ER Collect Specimen Source: Whole Blood Specimen Collected: 08/16/2019 9:00 PM Resultin g Agency: [facility] Test ID: [id number] Released on: 08/16/2019 9:02 PM [id number] TROPONIN I [#[id number]] Priority: STAT Class: ER Collect Specimen Source : Plasma Specimen Collected: 08/16/2019 9:00 PM Resulting Agency: [facility] Test ID: TROIP Released on: 08/16/2019 9:02 PM [id number] MAGNESIUM [#[id number]] Priority: STAT Class: ER Collect Specimen Source: Plasma Specimen Collected: 08/16/2019 9:00 PM Resultin g Agency: [facility] Test ID: [id number] Released on: 08/16/2019 9:02 PM [id number] D DIMER [#[id number]] Priority: STAT Class: ER Collect Specimen Source : Plasma Specimen Collected: 08/16/2019 9:00 PM Resulting Agency: [facility] Test ID: [id number] Released on: 08/16/2019 9:02 PM [id number] LITHIUM [#[id number]] Priority: STAT Class: ER Collect Standing Order Information Remaining Occurrences:0/1 Inter haile:ONE TIME Last released:08/16/2019 Released orders: Sat Aug 16, 2019 9:02 PM by: INDIO WARD [id number] LITHIUM [#[id number]] Priority: STAT Class: E R Collect Specimen Source: Serum Specimen Collected: 08/16/2019 9:00 PM Resulting Agency: [facility] Test ID: LI Released on: 08/16/2019 9:02 PM [id number] EKG, 12 LEAD, INITIAL [#[id number]] Priority: STAT Class: Hospital Performed Standing Order Information Remainin g Occurrences:0/1 Interval:ONE TIME Last released:08/16/2019 Released orders : Sat Aug 16, 2019 9:02 PM by: INDIO POLLOCK Reason for Exam: -> Chest Pain [id number] EKG, 12 LEAD, INITIAL [#[id number]] Priority: STAT Class: Hospital Performed Resulting Age ncy: GSH MUSE Test ID: [id number] Reason for Exam: -> Chest Pain Released on: 08/16/2019 9:02 PM [id number] XR CHEST PORT [#[id number]] Priority: STAT Class: Hospital Performed Stand ing Order Information Remaining Occurrences:0/1 Interval:ONE TIME Last released:0 08/16/2019 Released orders: Sat Aug 16, 2019 9:02 PM by: INDIO POLLOCK Reason for Exam -> Chest Pain [id number] XR CHEST PORT [#[id number]] Priority: STAT Class: H ospital Performed Resulting Agency: [facility] Test ID: [id number] Reason for Exam -> Chest Pain Rele ased on: 08/16/2019 9:02 JORDYMaxwell waddell MR#: [id number] * Rm: ER11-11 Ht: 5' 10" Wt: 280 lb Code: Prior Iso:Diagnosis:Allergies: No Known Allergies -------- Current as of: 08/16/19 2246 GI=Given IC=IV Complet ed NB=New Bag --aspirin (ASPIRIN) tablet 325 mg #[id number] Admin Amount: 1 Tab (1 x 325 mg Tab) Ordered Dose: 325 mg Route: Oral Freq: ONCE Start Date: 12/24/13 No administration times (back 96 hours, ahead 96 hours). ------diphenhydrAMINE (BENADRYL) capsule 50 mg #[id number] Admin Amount: 1 Cap (1 x 50 mg Cap) Ordered Dose: 50 mg Route: Ora l Freq: NOW Start Date: 12/24/13 No administration times (back 96 hours, ahe ad 96 hours). ------diazepam (VALIUM) tablet 5 mg #[id number] Admin Amount: 1 Tab (1 x 5 mg Tab) Ordered Dose: 5 mg Route: Oral Freq: ON CE Start Date: 12/24/13 No administration times (back 96 hours, ahead 96 hours). ------lidocaine (XYLOCAINE) 10 mg/mL (1 %) injection 1-30 mL #[id number] Admin Amount: 1-30 mL Ordered Dose: 1-30 mL Route: IntraDERMal Freq: ONCE Start Date: 12/24/13 No administration times (back 96 hours, ahead 96 hours). ------heparin (PF) 2 units/ml in NS infusion 2,000 Units #[id number] Admin Amount: 1,000 mL = 2,000 Units of 2 Units/mL Ordered Dose: 1,000 mL Ro ely shoshone: Irrigation Freq: ONCE Start Date: 12/24/13 No administration times (back 96 hours, ahead 96 hours). ------heparinized saline 2 units/mL infusion 1,000 Units #[id number] Admin Amount: 500 mL = 1,000 Units of 2 Units/mL Ordered Dose: 500 mL Ro ely shoshone: IntraarTERial Freq: ONCE Start Date: 12/24/13 No administration times (back 96 hours, ahead 96 hours). ------0.9% sodium chloride infusion #[id number] Ordered Dose: 75 mL/hr Route: IntraVENous Freq: CONTINUOUS Start Date: 12/24/13 Rate: 75 mL/hr Duration: No administration times (back 96 hours, ahead 96 hours). ------ioversol (OPTIRAY) 320 mg iodine/mL contrast injection 1-100 mL #[id number] Admin Amount: 1-100 mL Ordered Dose: 1-100 mL Route: IntraVENous Freq: RAD O NCE Start Date: 12/24/13 No administration times (back 96 hours, ahead 96 hours).Maxwell Bray MR#: [id number] * Rm: SA99-45Ui: 5' 10" Wt: 280 lb Co de: Prior Iso:Diagnosis:Allergies: No Known Allergies -------- Current as of: 08/16/192245 GI=Given IC=IV Complet ed NB=New Bag --gadobutrol (GADAVIST) contrast solution 1-10 mL #[id number] Admin Amount: 1-10 mL Ordered Dose: 1-10 mL Route: IntraVENous Freq: RAD O NCE Start Date: 01/13/14 No administration times (back 96 hours, ahead 96 hours). ------sodium chloride (NS) flush 5-10 mL #[id number] Admin Amount: 5-10 mL Ordered Dose: 5-10 mL Route: IntraVENous Freq: RAD ONCE Start Date: 01/13/14 No administration times (back 96 hours, ahead 96 hours). ------sodium chloride (NS) 0.9 % flush #[id number] Ordered Dose: Route: Freq: Start Date: 01/13 No administration times (back 96 hours, ahead 96 hours). ------morphine injection 2 mg #[id number] Admin Amount: 1 mL = 2 mg of 2 mg/mL Ordered Dose: 2 mg Route: IntraVENous Freq: NOW Start Date: 03/13/15 No administration times (back 96 hours, ahe ad 96 hours). ------influenza vaccine (4 yr+)(PF) (FLUCELVAX QUAD) inj ection 0.5*#[id number] Admin Amount: 0.5 mL Ordered Dose: 0.5 mL Route: IntraMUSCular Freq: PRIOR TO DISCHARGE Start Date: 03/30/16 No administration times (back 96 hours, ahead 96 hours). ------oxyCODONE-acetaminophen (PERCOCET) 5-325 mg per tablet 1 Tab #[id number] Admin Amount: 1 Tab Ordered Dose: 1 Tab Route: Oral Freq: NOW Start Date: 09/07/17 No administration times (back 96 hours, ahead 96 hours). ------barium sulfate (READICAT) 2.1 % (w/v), 2.0 % (w /w) oral suspension 9*#[id number] Admin Amount: 900 mL Ordered Dose: 900 mL Route: Oral Delgado q: RAD ONCE Start Date: 10/15/17 No administration times (back 96 hours, ahead 96 hours). ------iopamidol (ISOVUE 300) 61 % contrast injection 100 mL #[id number] Admin Amount: 100 mL Ordered Dose: 100 mL Route: IntraVENous Freq: RAD ONC E Start Date: 10/15/17 No administration times (back 96 hours, ahead 96 hours).Maxwell Bray MR#: [id number] * Rm: [id number]: 5' 10" Wt: 280 lb Code: Prior Iso:Diagnosis:Allergies: No Known Allergies -------- Current as of: 08/16/192245 GI=Given IC=IV Complet ed NB=New Bag --risperiDONE (RisperDAL m-tabs) disintegrating tablet 1 mg #[id number] Admin Amount: 1 Tab (1 x 1 mg Tab) Ordered Dose: 1 mg Route: Oral Freq: ONCE Start Date: 12/24/17 No administration times (back 96 hours, ahead 96 hours). ------ALPRAZolam (XANAX) tablet 2 mg #[id number] Admin Amount: 4 Tab (4 x 0.5 mg Tab) Ordered Dose: 2 mg Route: Ora l Freq: NOW Start Date: 12/24/17 No administration times (back 96 hours, ahe ad 96 hours). ------lamoTRIgine (LaMICtal) tablet 100 mg #[id number] Admin Amount: 1 Tab (1 x 100 mg Tab) Ordered Dose: 100 mg Route: Oral Delgado q: ONCE Start Date: 12/24/17 No administration times (back 96 hours, ahead 96 hours). ------OLANZapine (ZyPREXA zydis) disintegrating tablet 5 mg #[id number] Admin Amount: 1 Tab (1 x 5 mg Tab) Ordered Dose: 5 mg Route: Oral Delgado q: ONCE Start Date: 12/25/17 No administration times (back 96 hours, ahead 96 hours). ------LORazepam (ATIVAN) tablet 2 mg #[id number] Admin Amount: 4 Tab (4 x 0.5 mg Tab) Ordered Dose: 2 mg Route: Ora l Freq: NOW Start Date: 12/25/17 No administration times (back 96 hours, ahe ad 96 hours). ------LORazepam (ATIVAN) injection 1 mg #[id number] Admin Amount: 0.5 mL = 1 mg of 2 mg/mL Ordered Dose: 1 mg Route: Int raVENous Freq: NOW Start Date: 12/25/17 No administration times (back 96 hours, ahe ad 96 hours). ------barium sulfate (EZ PAQUE) 96 % (w/w) contrast suspension 17 6 g #[id number] Admin Amount: 176 g Ordered Dose: 176 g Route: Oral Freq: RAD ONCE Start Date: 08/02/18 No administration times (back 96 hours, ahead 96 hours). ------barium sulfate (EZ PAQUE) 96 % (w/w) contrast s uspension 176 g #[id number] Admin Amount: 176 g Ordered Dose: 176 g Route: Oral Delgado q: RAD ONCE Start Date: 08/02/18 No administration times (back 96 hours, ahead 96 hours).Maxwell Ritter MR#: [id number] * Rm: PM48-38Uq: 5' 10" Wt: 280 lb Co de: Prior Iso:Diagnosis:Allergies: No Known Allergies -------- Current as of: 08/16/19 7256 GI=Given IC=IV Complet ed NB=New Bag --aspirin chewable tablet 162 mg #[id number] Admin Amount: 2 Tab (2 x 81 mg Tab) Ordered Dose: 162 mg Route: Oral Freq: NOW Start Date: 08/10/19 No administration times (back 96 hours, ahead 96 hours). ------famotidine (PF) (PEPCID) 20 mg in 0.9% sodium chloride 10 mL inje cti*#[id number] Admin Amount: 20 mg Ordered Dose: 20 mg Route: IntraVENous Freq: EVERY 12 H OURS Start Date: 08/16/19 Administration times (back 96 hours, ahead 96 hours): 08/16/19: 2119G I 08/17/19: 89908/18/19: 89908/19/19: 89908/20/19: 899 2099 ---0.9% sodium chloride infusion 1,000 mL #[id number] Admin Amount: 1,000 mL Ordered Dose: 1,000 mL Route: IntraVENous Freq: ONC E Start Date: 08/16/19 Rate: 1,000 mL/hr Duration: Administration times (back 96 hours, ahead 96 hours): 08/16/19: 2119NB 2245IC -----methylPREDNISolone (PF) (Solu-MEDROL) injection 125 mg #[id number] Admin Amount: 2 mL = 125 mg of 125 mg/2 mL Ordered Dose: 125 mg Route: Int raVENous Freq: NOW Start Date: 08/16/19 Administration times (back 96 hours, ahe ad 96 hours): 08/16/19: 2118GI -----aspirin chewable tablet 162 mg #[id number] Admin Amount: 2 Tab (2 x 81 [...] With:Ritika Canas M DDetails:In 2 daysComments:Contact Info:[address] [facility] [phone]-up With:[facility] EMERGENCY DEPARTMENTDetails:Comments:As needed, If symptoms worsenContact Info:[address] [facility] [phone] Name Value Range Interpretation Code Description Data [facility] rce(s) Supporting Document(s ) ID Date Data Source [id number] 08/16/2019 10:45:45 PM [facility] IV site clean/dry/intact, gauze dressing applied. Pt received written and verbaldischarge instructions. Verbalize d understanding of same. Ambulated out of EDwith steady gait and in no distress. Name Value Range Interpretation Code Description Data [facility] rce(s) Supporting Document(s ) ID Date Data Source [id number] 08/16/2019 09:58:14 PM [facility] Name Value Range Interpretation Description Data Sup porting Code Source(s) Document(s ) Haines 0.21 0.6-1.2 Below low normal [facility] - [facility] [Moles/volu MMOL/L [facility] tx] in Hospital Serum or Plasma ID Date Data Source [id number] 08/16/2019 09:52:19 PM EST [facility] Value Range Interpretation Code Description Data Melani rce(s) Supporting Document(s ) Fibrin <500 [facility] - Good D-dimer FEU [facility] [Mass/volume] [facility] in Platelet poor plasma (NOTE)Combination of a D-Dimer result wi thin the reference range and a lowclinical pretest probability has good negative pr edictive value fordeep venous thrombosis.If results are utilized for VTE evaluation, <500 ng/ml is consideredto be negative. ID Date Data Source [id number] 08/16/2019 09:44:39 PM EST [facility] Value Range Interpretation Description Data Sup porting Code Source(s) Document(s ) Troponin 0.00-0.05 [facility] I.cardiac [facility] [Mass/volume [facility] ] in Serum or Plasma (NOTE)The [...] to 1.50 ng/mL ID Date Data Source [id number] 08/16/2019 09:44:39 PM EST [facility] Value Range Interpretation Description Data Sup porting Code Source(s) Document(s ) Sodium 138 136-145 [facility] [Moles/volume] mmol/L [facility] in Serum or Hospital Plasma Potassium 3.4 3.5-5.1 Below low normal [facility] - [facility] [Moles/volume] mmol/L [facility] in Serum or Hospital Plasma Chloride 108 98-107 Above high normal [facility] [Moles/volume] mmol/L [facility] in Serum or Hospital Plasma Carbon 20 21-32 Below low normal [facility] dioxide, total mmol/L [facility] [Moles/volume] Hospital in Serum or Plasma Anion gap in 14 10-20 [facility] Serum or mmol/L [facility] Plasma Hospital Glucose 105 74-106 [facility] [Mass/volume] mg/dL [facility] in Serum or Hospital Plasma Urea nitrogen 20 mg/dL 7-18 Above high normal [facility] - Good [Mass/volume] [facility] in Serum or Hospital Plasma Creatinine 0.90 0.70-1.3 [facility] Good [Mass/volume] mg/dL 0 [facility] in Serum or Hospital Plasma Glomerular >60 [facility] - Good filtration [facility] rate/1.73 sq M Hospital predicted among blacks [Volume Rate/Area] in Serum or Plasma by Creatinine-bas ed formula (MDRD) Glomerular >60 [facility] - Good filtration [facility] rate/1.73 sq M Hospital predicted among non-blacks [Volume Rate/Area] in Serum or Plasma by Creatinine-bas ed formula (MDRD) (NOTE)Estimated GFR is calculated using the Modification of Diet in RenalDisease (MDRD) Study equation, reported for both Americans(GFRAA) and non- Americans (GFRNA), and normalized to 1.7 3v5vzju surface area. The physician must decide which [...] normal [facility] - Good Serum or Plasma [facility] ital Bilirubin.total 0.3 mg/dL 0.2-1.0 [facility] - Good [Mass/volume] in Serum or [facility] Plasma Alanine aminotransferase 37 U/L 13-61 [facility] - Good [Enzymatic activity/volume] [facility] in Serum or Plasma Aspartate aminotransferase 22 U/L 15-37 [facility] - Good [Enzymatic activity/volume] [facility] in Serum or Plasma by With P-5'-P Alkaline phosphatase 98 U/L 45-117 [facility] - G ood [Enzymatic activity/volume] [facility] in Serum or Plasma Protein [Mass/volume] in 7.0 g/dL 6.4-8.2 [facility] - Good Serum or Plasma [facility] ital Albumin [Mass/volume] in 3.7 g/dL 3.5-4.7 [facility] - Good Serum or Plasma by [facility] ospital Bromocresol purple (BCP) dye binding method Globulin [Mass/volume] in 3.3 g/dL 1.7-4.7 [facility] - Good Serum by calculation [facility] Albumin/Globulin [Mass 1.1 0.7-2.8 [facility] - Good Ratio] in Serum or Plasma [facility] ID Date Data Source [id number] 08/16/2019 09:44:39 PM EST [facility] Name Value Range Interpretation Description Data Sup porting Code Source(s) Document(s ) Magnesium 2.3 mg/dL 1.6-2.6 [facility] - Good [Mass/volume] [facility] in Serum or Hospital Plasma ID Date Data Source [id number] 08/16/2019 09:23:23 PM EST [facility] - Good [facility] Name Value Range Interpretation Description Data Sup porting Code Source(s) Document(s ) Leukocytes 7.6 K/uL 4.8-10.6 [facility] - [#/volume] in Good Blood by [facility] Erythrocytes 4.97 4.70-6.0 [facility] - [#/volume] in M/uL 0 Good Blood by [facility] Hemoglobin 15.2 14.0-18. [facility] - [Mass/volume] in g/dL 0 Good Blood [facility] Hematocrit 45.0 % 42.0-52. [facility] - [Volume 0 Good Fraction] of [facility] Blood by [facility] Automated count Erythrocyte mean 90.5 FL 81.0-94. [facility] - corpuscular 0 Good volume [Entitic [facility] volume] by [facility] Automated count Erythrocyte mean 30.6 PG 27.0-35. [facility] - corpuscular 0 Good hemoglobin [facility] [Entitic mass] Hospital by Automated count Erythrocyte mean 33.8 30.7-37. [facility] - corpuscular g/dL 3 Good hemoglobin [facility] Hospital [Mass/volume] by Automated count Erythrocyte 13.0 % 11.5-14. [facility] - distribution 0 Good width [Ratio] by [facility] Automated count Hospital Platelets 183 K/uL 130-400 [facility] - [#/volume] in Good Blood by [facility] Automated count Hospital Platelet mean 8.5 FL 9.2-11.8 Below low normal [facility] - volume [Entitic Good volume] in Blood [facility] by Automated Hospital count Nucleated 0.0 PER 0 [facility] - erythrocytes/100 100 WBC Good leukocytes [facility] [Ratio] in Blood [facility] Nucleated 0.00 0.0-0.01 [facility] - erythrocytes K/uL Good [#/volume] in [facility] Segmented 68 % 48.0-72. [facility] - neutrophils/100 0 Good leukocytes in [facility] Lymphocytes/100 19 % 18.0-40. [facility] - leukocytes in 0 [facility] Monocytes/100 7 % 2.0-12.0 [facility] - leukocytes in [facility] Eosinophils/100 5 % 0.0-7.0 [facility] - leukocytes in [facility] Basophils/100 1 % 0.0-3.0 [facility] - leukocytes in [facility] Immature 1 % 0-0.5 Above high normal [facility] - granulocytes/100 Good leukocytes in [facility] Hospital Automated count Segmented 5.2 K/UL 2.3-7.6 [facility] - neutrophils Good [#/volume] in [facility] Lymphocytes 1.5 K/UL 0.9-4.2 [facility] - [#/volume] in [facility] Monocytes 0.6 K/UL 0.1-1.7 [facility] - [#/volume] in [facility] Eosinophils 0.3 K/UL 0.0-1.0 [facility] - [#/volume] in [facility] Basophils 0.0 K/UL 0.0-0.4 [facility] - [#/volume] in [facility] Immature 0.0 K/UL 0.0-0.17 [facility] - granulocytes Good [#/volume] in [facility] Blood by Hospital Automated count Differential [facility] - cell count Good method - Blood [facility] ID Date Data Source [id number] 08/16/2019 08:50:30 PM EST [facility] sudden onset of difficulty breathing and rash while eating leticia food, rashacross face and chest slightly raised, no vesicles, denies any chest pain deniesany itching at this time. Went to urgent care, recei nataliia benadryl 50 mg IMfrom EMS. Name Value Range Interpretation Code Description Data [facility] rce(s) Supporting Document(s ) ID Date Data Source [id number] 08/11/2019 08:03:02 AM [facility] History:Chest pain. Shortness of breath. FINDINGS:A single [...] Value Range Interpretation Code [facility] Document(s ) ID Date Data Source [id number] 08/11/2019 04:22:14 AM [facility] The history is provided by the patient [...] and clonazepam. No othercomplaints at this t yldia.Dr. Canas (PCP)Past Medical History:Diagnosis Date Other unknown an d unspecified cause of morbidity or mortality cardiac cath at [facility] approx 6-8 months ag o Other [...] e Gets together: Not on file Attends pentecostalism service: Not on file 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 [...] QTC Calculation (Bezet) 435 ms Calculated P [place] 55 degrees Calculated R [place] 34 degrees Calculated T [place] 9 degrees Diagnosis S inus tachycardiaOtherwise normal [...] Time: 08/11/19 12:01 AMResult Value Ref Range Haines level <0.20 (L) 0.6 - 1.2 MMOL/LLACTIC [...] 36N*ENCOUNTER 08/11/2019 01:42:54 AM EST [facility] [id number] [facility] EMERGENCY DEPARTMENT [address] [facility] [address] [phone]/ Maxwell Mitchell (Male) [id number] JOSE 2 ED Dispo:DISCHARGE Chief Complaint: Chest Pain, Shortne ss of Breath Diagnosis: Dyspnea, unspecified type [] Current Providers: Atte nding: Javier Quezada Primary Nurse: ANDREW Wilson: [phone] [employer] p [id number] - Bsi [employer] MrnMRN: [id number] [employer] [phone] - Bs i Ed Medva Age SexDOB 1970 AGE 49 SEX Male Primary Care Provider: Ritika Canas MD Phone: [phone]: (No Known Allergies)Date Reviewed: 08/10/2019Reviewed by: Chiquis Christianson CompleteED Provider Notes: No notes of this type exist for this encounter.ED Orders [id number] E KG, 12 LEAD, INITIAL [#[id number]] Priority: STAT Class: Hospital Performed Stand ing Order Information Remaining Occurrences:0/1 Interval:ONE TIME Last released:0 08/10/2019 Released orders: [facility] Aug 10, 2019 10:17 PM by: CHIQUIS CHRISTIANSON Reason for Exam: -> CP SOB [id number] EKG, 12 LEAD, INITIAL [#[id number]] Priority: STAT Class: Hospital Performed Specimen Collected: 08/10/2019 10:14 PM Resulting Agency: [facility] Test ID: [id number] Reason for Exam: -> CP SOB Released on: 08/10/2019 10:17 PM [id number] EKG, 12 LE AD, INITIAL [#[id number]] Priority: STAT Class: Hospital Performed Standing Or mariano Information Remaining Occurrences:0/1 Interval:ONE TIME Last released:0 08/10/2019 Released orders: [facility] Aug 10, 2019 11:51 PM by: MAYANK QUEZADA V Reason fo r Exam: -> Chest Pain [id number] EKG, 12 LEAD, INITIAL [#[id number]] Priority: STAT C lass: Hospital Performed Resulting Agency: [facility] Test ID: [id number] Reason for Exam: -> Chest P ain Released on: 08/10/2019 11:51 PM [id number] CORONER/MEDICAL EXAMINER - ED ONLY [#[id number]] Priority: STAT Class: Hospital Performed Standing Order Information Remaining Occurre nces:0/1 Interval:Continuous Last released:08/10/2019 Released orders : [facility] Aug 10, 2019 11:51 PM by: MAYANK QUEZADA V Type: -> Bedside [id number] PULSE OXIMETR Y CONTINUOUS [#[id number]] Priority: STAT Class: Hospital Performed Standing Or mariano Information Remaining Occurrences:0/1 Interval:CONTINUOUS Last released :08/10/2019 Released orders: [facility] Aug 10, 2019 11:51 PM by: MAYANK QUEZADA V [id number] PULSE OXIMETRY SPOT CHECK [#[id number]] Priority: STAT Class: Hospital Performe d Standing Order Information Remaining Occurrences:0/1 Interval:ONE TIME Last r eleased:08/10/2019 Released orders: [facility] Aug 10, 2019 11:51 PM by: MAYANK QUEZADA V NU [id number] OBTAIN OLD EKG [#[id number]] Priority: Routine Class: Hospital Perfo rmed Standing Order Information Remaining Occurrences:0/1 Interval:ONE TI ME Last released:08/10/2019 Released orders: [place] Aug 10, 2019 11:51 PM by: MAYANK QUEZADA V [id number] CORONER/MEDICAL EXAMINER - ED ONLY [#[id number]] Priority: STAT Class: H ospital Performed Type: -> Bedside Released on: 08/10/2019 11:51 PM [id number] PULSE OXIM ETRY CONTINUOUS [#[id number]] Priority: STAT Class: Hospital Performed Released on : 08/10/2019 11:51 PM [id number] PULSE OXIMETRY SPOT CHECK [#[id number]] Priority: STAT C lass: Hospital Performed Released on: 08/10/2019 11:51 PM [id number] OBTAIN OLD EKG [#[id number]] Priority: STAT Class: Hospital Performed Released on: 08/10/2019 11: 51 PM [id number] RT--OXYGEN CANNULA [#[id number]] Priority: STAT Class: H ospital Performed Standing Order Information Remaining Occurrences:0/1 Interval:CONTIN UOUS Last released:08/10/2019 Released orders: [place] Aug 10, 2019 11:51 PM by: MAYANK PRADO V Comment:TITRATE UP TO 4 L / MINUTE TO MAINTAIN O2 SATS GREATER THAN OR EQUAL TO 94% LPM -> 2 Indications for O2? -> CHEST PAIN [id number] RT--OXYGEN CANNULA [#[id number]] Priority: STAT Class: Hospital Performed Comment:TITRATE UP TO 4 L / MINUTE TO MAINTAIN O2 SATS GREATER THAN OR EQUAL TO 94% LPM -> 2 Indications fo r O2? -> CHEST PAIN Released on: 08/10/2019 11:51 PM [id number] DIET NPO [#[id number]] Priority: STAT Class: Hospital Performed Standing Order Information Remaining Occurrences:0/1 Interval:DIET EFFECTIVE NOW Last released:08/10 Released orders: [place] Aug 10, 2019 11:51 PM by: MAYANK QUEZADA V NPO options: - > With Meds [id number] DIET NPO [#[id number]] Priority: STAT Class: H ospital Performed NPO options: -> With Meds Released on: 08/10/2019 11:51 PM [id number] SALINE LOCK IV [#[id number]] Priority: STAT Class: Hospital Performed Standing O rder Information Remaining Occurrences:0/1 Interval:ONE TIME Last released:0 08/10/2019 Released orders: Sun Aug 10, 2019 11:51 PM by: MAYANK QUEZADA V IVT11 SALI NE LOCK IV [#[id number]] Priority: STAT Class: Hospital Performed Relea sed on: 08/10/2019 11:51 PM [id number] METABOLIC PANEL, COMPREHENSIVE [#[id number]] Bridgette ority: STAT Class: ER Collect Standing Order Information Remaining Occurrences:0/1 In terval:ONE TIME Last released:08/10/2019 Released orders: Sun Aug 10, 2019 11:51 PM by: MAYANK QUEZADA V [id number] CBC WITH AUTOMATED DIFF [#[id number]] Priority: STAT Class: ER Collect Standing Order Information Remaining Occurrences:0/1 Inter haile:ONE TIME Last released:08/10/2019 Released orders: [facility] Aug 10, 2019 11:51 PM by: MAYANK QUEZADA V [id number] TROPONIN I [#[id number]] Priority: STAT Class: ER Collect Standing Order Information Remaining Occurrences:0/1 Inter haile:ONE TIME Last released:08/10/2019 Released orders: Sun Aug 10, 2019 11:51 PM by: MAYANK QUEZADA V [id number] MAGNESIUM [#[id number]] Priority: STAT Class: ER Collect Standing Order Information Remaining Occurrences:0/1 Inter haile:ONE TIME Last released:08/10/2019 Released orders: [facility] Aug 10, 2019 11:51 PM by: MAYANK QUEZADA V [id number] BNP [#[id number]] Priority: STAT Class: ER Collect Standing Order Information Remaining Occurrences:0/1 Inter haile:ONE TIME Last released:08/10/2019 Released orders: Sun Aug 10, 2019 11:51 PM by: MAYANK QUEZADA V [id number] D DIMER [#[id number]] Priority: STAT Class: ER Collect Standing Order Information Remaining Occurrences:0/1 Inter haile:ONE TIME Last released:08/10/2019 Released orders: Sun Aug 10, 2019 11:51 PM by: MAYANK QUEZADA V [id number] PROTHROMBIN TIME + INR [#[id number]] Priority: STAT Class: ER Collect Standing Order Information Remaining Occurrences:0/1 Inter haile:ONE TIME Last released:08/10/2019 Released orders: Sun Aug 10, 2019 11:51 PM by: MAYANK QUEZADA V [id number] PTT [#[id number]] Priority: STAT Class: ER Collect Specimen Source: Blood Standing Order Information Remaining Occurrences:0 /1 Interval:ONE TIME Last released:08/10/2019 Released orders: [place] Aug 10, 2019 11:51 PM by: MAYANK QUEZADA V [id number] LITHIUM [#[id number]] Pr iority: STAT Class: ER Collect Standing Order Information Remaining Occurrences:0/1 I nterval:ONE TIME Last released:08/10/2019 Released orders: [place] Aug 10, 2019 11:51 PM by: MAYANK QUEZADA V [id number] METABOLIC PANEL, COMPREHENSIVE [#[id number]] Bridgette ority: STAT Class: ER Collect Specimen Source: Plasma Specimen Collected: 08/11/2019 12:01 AM Resulting Agency: [facility] Test ID: MPL Released on: 08/10/2019 11:51 PM [id number] CBC WITH AUTOMATED DIFF [#[id number]] Priority: STAT Class: E R Collect Specimen Source: Whole Blood Specimen Collected: 08/11/2019 12:01 AM Resulting Agency: [facility] Test ID: [id number] Released on: 08/10/2019 11:51 PM [id number] TROPON IN I [#[id number]] Priority: STAT Class: ER Collect Specimen Source: [place] sma Specimen Collected: 08/11/2019 12:01 AM Resulting Agency: [facility] RY Test ID: TROIP Released on: 08/10/2019 11:51 PM [id number] MAGNESIUM [#[id number]] Priority: STAT Class: ER Collect Specimen Source: Plasma Specimen Collec hyun: 08/11/2019 12:01 AM Resulting Agency: [facility] Test ID: MGPL Re leased on: 08/10/2019 11:51 PM [id number] BNP [#[id number]] Priority : STAT Class: ER Collect Specimen Source: Plasma Specimen Collected: 08/11/2019 12:01 AM Resultin g Agency: [facility] Test ID: BNPPB Released on: 08/10/2019 11:51 PM [id number] D DIMER [#[id number]] Priority: STAT Class: ER Collect Speci men Source: Plasma Specimen Collected: 08/11/2019 12:01 AM Resulting Agency: [facility] Test ID: [id number] Released on: 08/10/2019 11:51 PM [id number] PROTHROMBIN TIME + INR [#[id number]] Priority: STAT Class: ER Collect Specimen Source: Plasma Specimen Collec hyun: 08/11/2019 12:01 AM Resulting Agency: [facility] Test ID: APTHR R eleased on: 08/10/2019 11:51 PM [id number] PTT [#[id number]] Priorit y: STAT Class: ER Collect Specimen Source: Plasma Specimen Collected: 08/11/2019 12:01 AM Resultin g Agency: [facility] Test ID: APTT Released on: 08/10/2019 11:51 PM [id number] LITHIUM [#[id number]] Priority: STAT Class: ER Collect Speci men Source: Serum Specimen Collected: 08/11/2019 12:01 AM Resulting Agency: [facility] Test ID: LI Released on: 08/10/2019 11:51 PM [id number] LACTIC ACID [#[id number]] Priority: STAT Class: ER Collect Standing Order Information Remainin g Occurrences:0/1 Interval:ONE TIME Last released:08/11/2019 Released orders : Mon Aug 11, 2019 12:15 AM by: KATI WILSON [id number] LACTIC ACID [#[id number]] Priority: STAT Class: ER Collect Specimen Source: Plasma Specimen Collec hyun: 08/11/2019 12:01 AM Resulting Agency: [facility] Test ID: LAC Rel eased on: 08/11/2019 12:15 AM ASPIRIN 81 MG CHEWABLE TAB [#[id number]] Priority: STAT Class: Normal [id number] XR CHEST PORT [#[id number]] Priority: STAT Cl ass: Hospital Performed Standing Order Information Remaining Occurrences:0/1 Inter haile:ONE TIME Last released:08/10/2019 Released orders: Sun Aug 10, 2019 11:51 PM by: MAYANK QUEZADA V Reason for Exam -> Chest Pain [id number] XR CHEST PORT [#[id number]] Priority: STAT Class: Hospital Performed Resulting Agency: [facility] Test ID: [id number] Reason for Exam -> Chest Pain Released on: 08/10/2019 11:51 PM [id number] INFLUENZA A & B AG (RAPID TEST) [#[id number]] Priority: STAT Class: ER Collect Sta nding Order Information Remaining Occurrences:0/1 Interval:ONE TIME Last released: 08/10/2019 Released orders: Sun Aug 10, 2019 11:51 PM by: MAYANK QUEZADA V [id number] INFL UENZA A & B AG (RAPID TEST) [#[id number]] Priority: STAT Class: ER Collect Specimen Source : Nasal washing Specimen Collected: 08/11/2019 12:18 AM Resulting Agency: [facility] Test ID: INFLUA Released on: 08/10/2019 11:51 PM [id number] CULTURE, BLOOD [#[id number]] Priority: STAT Class: ER Collect Specimen Source: Blood Standing Order Information Remaining Occurrences:0/1 Interval:ONE TIME Last released:0 08/11/2019 Released orders: Mon Aug 11, 2019 12:15 AM by: KATI WILSON [id number] CULTU RE, BLOOD [#[id number]] Priority: STAT Class: ER Collect Specimen Source : Blood Standing Order Information Remaining Occurrences:0/1 Interval:ONE TI ME Last released:08/11/2019 Released orders: Mon Aug 11, 2019 12:15 AM by: KATI WILSON [id number] CULTURE, BLOOD [#[id number]] Priority: STAT Class: E R Collect Specimen Source: Blood Specimen Collected: 08/11/2019 12:33 AM Resulting Agency: [facility] Test ID: HBCS Released on: 08/11/2019 12:15 AM [id number] CULTUR E, BLOOD [#[id number]] Priority: STAT Class: ER Collect Specimen Source: Blo od Specimen Collected: 08/11/2019 12:43 AM Resulting Agency: [facility] Test ID: HBCS Released on: 08/11/2019 12:15 AMLuisitoMaxwell donovan MR#: [id number] Acct#: [id number]* Rm: [id number]: 5' 10" Wt: 280 lb Code: Prior Iso:Diagnosis:Allergies: No Kno wn Allergies -------- Current as of: 08/11/19 0142 GI=Given -------aspirin (ASPIRIN) tablet 325 mg #[id number] Admin Amount: 1 Tab (1 x 325 mg Tab) Ordered Dose: 325 mg Route: Oral Freq: ONCE Start Date: 12/24/13 No administration times (b ack 96 hours, ahead 96 hours). ------diphenhydrAMINE (BENADRYL) capsule 50 mg #[id number] Admin Amount: 1 Cap (1 x 50 mg Cap) Ordered Dose: 50 mg Ro ely shoshone: Oral Freq: NOW Start Date: 12/24/13 No administration times (back 96 hours, ahead 96 hours). ------diazepam (VALIUM) tablet 5 mg #[id number] Admin Amount: 1 Tab (1 x 5 mg Tab) Ordered Dose: 5 mg Route: Oral Freq: ONCE Start Date: 12/24/13 No administration times (back 96 hours, ahead 96 hours). ------lidocaine (XYLOCAINE) 10 mg/mL (1 %) injection 1-3 0 mL #[id number] Admin Amount: 1-30 mL Ordered Dose: 1-30 mL Route: Int raDERMal Freq: ONCE Start Date: 12/24/13 No administration times (back 96 hours, ahead 96 hours). ------heparin (PF) 2 units/ml in NS infusion 2,000 Units #[id number] Admin Amount: 1,000 mL = 2,000 Units of 2 Units/mL Ordered Dose: 1,000 mL Route: Irrigation Freq: ONCE Start Date: 12/24/13 No administration times (back 96 hours, ahead 96 hours). ------heparinized saline 2 units/mL infusion 1,000 Units #[id number] Admin Amount: 500 mL = 1,000 Units of 2 Units/mL Ordered Dose: 500 m L Route: IntraarTERial Freq: ONCE Start Date: 12/24/13 No admini stration times (back 96 hours, ahead 96 hours). ------0.9% sodium chloride infusion #[id number] Ordered Dose: 75 mL/hr Route: IntraVENous Freq: CONTINUOUS Start Date: 12/24/13 Rate: 75 mL/hr Duration: No administration ti mes (back 96 hours, ahead 96 hours). ------ioversol (OPTIRAY) 320 mg iodine/mL contrast inje ction 1-100 mL #[id number] Admin Amount: 1-100 mL Ordered Dose: 1-100 mL Ro ely shoshone: IntraVENous Freq: RAD ONCE Start Date: 12/24/13 No administration times (back 96 hours, ahead 96 hours).Maxwell Bray MR#: [id number] * Rm: [id number] Ht: 5' 10" Wt: 280 lb Code: Prior Iso:Diagnosis:Allergies: No Known Allergies -------- Current as of: 08/11/19 0142 GI=Given -------gadobutrol (GADAVIST) contrast solution 1-10 mL #[id number] Admin Amount: 1-10 mL Ordered Dose: 1-10 mL Route: Int raVENous Freq: RAD ONCE Start Date: 01/13/14 No administration times (back 96 hours, ahead 96 hours). ------sodium chloride (NS) flush 5-10 mL #[id number] Admin Amount: 5-10 mL Ordered Dose: 5-10 mL Route: IntraVENo us Freq: RAD ONCE Start Date: 01/13/14 No administration times (back 96 hours, ahe ad 96 hours). ------sodium chloride (NS) 0.9 % flush #[id number] Ordered Dose: Route: Freq: Start Date: 01/13/14 No administration times (back 96 hours, ahead 96 hours). ------morphine injection 2 mg #[id number] Admin Amount: 1 mL = 2 mg of 2 mg/mL Ordered Dose: 2 mg Route: IntraVENous Freq: NOW Start Date: 03/13/15 No administration t imes (back 96 hours, ahead 96 hours). ------influenza vaccine 2016-17 (4 yr+)(PF) (FLUCELVAX Q UAD) injection 0.5*#[id number] Admin Amount: 0.5 mL Ordered Dose: 0.5 mL Route: Int raMUSCular Freq: PRIOR TO DISCHARGE Start Date: 03/30/16 No administration times (back 9 6 hours, ahead 96 hours). ------oxyCODONE-acetam inophen (PERCOCET) 5-325 mg per tablet 1 Tab #[id number] Admin Amount: 1 Tab Ordered Dose: 1 Tab Route: Oral Freq: NOW Start Date: 09/07/17 No administration times (back 96 hours, e ad 96 hours). ------barium sulfate (READICAT) 2.1 % (w/v), 2.0 % (w/w) oral suspension 9*#[id number] Admin Amount: 900 mL Ordered Dose: 900 mL Route: Oral Delgado q: RAD ONCE Start Date: 10/15/17 No administration times (back 96 hours, ahe ad 96 hours). ------iopamidol (ISOVUE 300) 61 % contrast injection 100 mL #[id number] Admin Amount: 100 mL Ordered Dose: 100 mL Route: Int raVENous Freq: RAD ONCE Start Date: 10/15/17 No administration times (back 96 hours, ahead 96 hours).Maxwell Bray MR#: [id number] * Rm: [id number]: 5' 1 0" Wt: 280 lb Code: Prior Iso:Diagnosis:Allergies: No Known Allergies -------- Current as of: 08/11/192 GI=Given -------risperiDONE (RisperDAL m-tabs) disintegrating tablet 1 mg #[id number] Admin Amount: 1 Tab (1 x 1 mg Tab) Ordered Dose: 1 mg Route: Oral Freq: ONCE Start Date: 12/24/17 No administration times (back 96 hours, ahead 96 hours). ------ALPRAZolam (XANAX) tablet 2 mg #[id number] Admin Amount: 4 Tab (4 x 0.5 mg Tab) Ordered Dose: 2 mg Route: Oral Freq: NOW Start Date: 12/24/17 No administration times (back 96 hours, ahead 96 hours). ------lamoTRIgine (LaMICtal) tablet 100 mg #[id number] Admin Amount: 1 Tab (1 x 100 mg Tab) Ordered Dose: 100 mg Route: Oral Freq: ONCE Start Date: 12/24/17 No administration times (back 96 hours, ahead 96 hours). ------OLANZapine (ZyPREXA zydis) disintegrating tablet 5 mg #[id number] Admin Amount: 1 Tab (1 x 5 mg Tab) Ordered Dose: 5 mg Route: Oral Freq: ONCE Start Date: 12/25/17 No administration times (back 96 hours, ahead 96 hours). ------LORazepam (ATIVAN) tablet 2 mg #[id number] Admin Amount: 4 Tab (4 x 0.5 mg Tab) Ordered Dose: 2 mg Route: Oral Freq: NOW Start Date: 12/25/17 No administration times (back 96 hours, ahead 96 hours). ------LORazepam (ATIVAN) injection 1 mg #[id number] Admin Amount: 0.5 mL = 1 mg of 2 mg/mL Ordered Dose: 1 mg Route: IntraVENous Freq: NOW Start Date: 12/25/17 No administration ti mes (back 96 hours, ahead 96 hours). ------barium sulfate (EZ PAQUE) 96 % (w/w) contrast suspensio n 176 g #[id number] Admin Amount: 176 g Ordered Dose: 176 g Route: Oral Delgado q: RAD ONCE Start Date: 08/02/18 No administration times (back 96 hours, ahe ad 96 hours). ------barium sulfate (EZ PAQUE) 96 % (w/w) contrast suspensio n 176 g #[id number] Admin Amount: 176 g Ordered Dose: 176 g Route: Oral Delgado q: RAD ONCE Start Date: 08/02/18 No administration times (back 96 hours, ahe ad 96 hours).Maxwell Bray MR#: [id number] * Rm: [id number]: 5' 10" Wt: 280 lb Code: Prior Iso:Diagnosis:Allergies: No Known Allergies -------- Current as of: 08/11/19 0142 GI=Given -------aspirin chewable tablet 162 mg #[id number] Admin Amount: 2 Tab (2 x 81 [...] visit in 1 dayComments:Contact Info:Chino Rodriguez [address] [facility] [phone] With:Detail s:Comments:As needed, If symptoms worsenContact Info: Name Value Range Interpretation Code Description Data Melani rce(s) Supporting Document(s ) ID Date Data Source [id number] 08/11/2019 01:40:37 AM EST [facility] I have reviewed discharge instructions w ith the patient and spouse. The patientand spouse verbalized understanding.\\ Name Value Range Interpretation Code Description Data Melani rce(s) Supporting Document(s ) ID Date Data Source [id number] 08/16/2019 06:35:29 AM EST [facility] Name Value Range Interpretation Description Data Sup porting Code Source(s) Document(s ) Service comment [facility] Bacteria [facility] ID Date Data Source [id number] 08/16/2019 06:35:28 AM EST [facility] Name Value Range Interpretation Description Data Sup porting Code Source(s) Document(s ) Service comment [facility] Bacteria [facility] by Culture ID Date Data Source [id number] 08/11/2019 12:56:01 AM EST [facility] Name Value Range Interpretation Description Data Sup porting Code Source(s) Document(s ) Influenza virus NEG [facility] A Ag [Presence] [facility] in [facility] by Immunoassay Influenza virus NEG [facility] B Ag [Presence] [facility] in [facility] by Immunoassay IMMUNOCHROMATOGRAPHIC MEMBRANE ASSAYResu lt: Negative for Influenza A and BNote: A negative result does not exclude an infl uenza virus infection, including H1N1. If more conclusive testing is desired, foll ow-up confirmatory testing is warranted. Specimen source [Identifier] of Unspecified [facility] specimen ID Date Data Source [id number] 08/11/2019 01:35:58 AM EST [facility] Name Value Range Interpretation Description Data Sup porting Code Source(s) Document(s ) Prothrombin 9.6 sec 9.4-11.1 [facility] - [facility] time (PT) [facility] INR in 0.9 0.8-1.2 [facility] - Good Platelet poor [facility] plasma by Hospital Coagulation assay ID Date Data Source [id number] 08/11/2019 01:35:58 AM EST [facility] Name Value Range Interpretation Description Data Sup porting Code Source(s) Document(s ) aPTT in 23.1 SEC 21.0-28. [facility] - Good Platelet poor 0 [facility] plasma by Hospital Coagulation assay Therapeutic Range = 42.0-60.0 secs ID Date Data Source [id number] 08/11/2019 01:30:36 AM [facility] Name Value Range Interpretation Description Data Sup porting Code Source(s) Document(s ) Natriuretic 19 pg/mL 0-100 [facility] - [facility] peptide B [facility] [Mass/volume] [facility] in Serum or Plasma ID Date Data Source [id number] 08/11/2019 01:25:10 AM EST [facility] Value Range Interpretation Code Description Data Supporting Source(s) Document(s ) Haines 0.6-1.2 Below low normal [facility] - Good [Moles/volum [facility] e] in Serum Hospital or Plasma ID Date Data Source [id number] 08/11/2019 01:20:56 AM EST [facility] Value Range Interpretation Code Description Data Melani rce(s) Supporting Document(s ) [facility]ibrin <500 [facility] D-dimer FEU [facility] [Mass/formerly [facility]] [facility] in Platelet poor plasma (NOTE)Combination of a D-Dimer result wi thin the reference range and a lowclinical pretest probability has good negative pr edictive value fordeep venous thrombosis.If results are utilized for VTE evaluation, <500 ng/ml is consideredto be negative. ID Date Data Source [id number] 08/11/2019 01:09:42 AM EST [facility] Value Range Interpretation Description Data Sup porting Code Source(s) Document(s ) Lactate 1.7 0.4-2.0 [facility] - Good [Moles/volu MMOL/L [facility]] in Hospital Serum or Plasma ID Date Data Source [id number] 08/11/2019 01:09:42 AM EST [facility] Name Value Range Interpretation Description Data Sup porting Code Source(s) Document(s ) Troponin 0.00-0.05 [facility] - Good I.cardiac [facility] [Mass/volume [facility] ] in Serum or Plasma (NOTE)The [...] to 1.50 ng/mL ID Date Data Source [id number] 08/11/2019 01:09:42 AM EST [facility] - Good [facility] Hospital Name Value Range Interpretation Description Data Sup porting Code Source(s) Document(s ) Sodium 140 136-145 [facility] - Good [Moles/volume] mmol/L [facility] in Serum or Hospital Plasma Potassium 3.9 3.5-5.1 [facility] - Good [Moles/volume] mmol/L [facility] in Serum or Hospital Plasma Chloride 113 98-107 Above high normal [facility] - Good [Moles/volume] mmol/L [facility] in Serum or Hospital Plasma Carbon 21 21-32 [facility] - Good dioxide, total mmol/L [facility] [Moles/volume] Hospital in Serum or Plasma Anion gap in 10 10-20 [facility] - Good Serum or mmol/L [facility] Plasma Hospital Glucose 90 mg/dL 74-106 [facility] - Good [Mass/volume] [facility] in Serum or Hospital Plasma Urea nitrogen 18 mg/dL 7-18 [facility] - Good [Mass/volume] [facility] in Serum or Hospital Plasma Creatinine 0.78 0.70-1.3 [facility] - Good [Mass/volume] mg/dL 0 [facility] in Serum or Hospital Plasma Glomerular >60 [facility] - Good filtration [facility] rate/1.73 sq M Hospital predicted among blacks [Volume Rate/Area] in Serum or Plasma by Creatinine-bas ed formula (MDRD) Glomerular >60 [facility] - Good filtration [facility] rate/1.73 sq M Hospital predicted among non-blacks [Volume Rate/Area] in Serum or Plasma by Creatinine-bas ed formula (MDRD) (NOTE)Estimated GFR is calculated using the Modification of Diet in RenalDisease (MDRD) Study equation, reported for both Americans(GFRAA) and non- Americans (GFRNA), and normalized to 1.7 9q3vlms surface area. The physician must decide which [...] normal [facility] - Good Serum or Plasma [facility] Hosp ital Bilirubin.total 0.5 mg/dL 0.2-1.0 [facility] - Good [Mass/volume] in Serum or [facility] Plasma Alanine aminotransferase 29 U/L 13-61 [facility] - Good [Enzymatic activity/volume] [facility] in Serum or Plasma Aspartate aminotransferase 18 U/L 15-37 [facility] - Good [Enzymatic activity/volume] [facility] in Serum or Plasma by With P-5'-P Alkaline phosphatase 98 U/L 45-117 [facility] - G ood [Enzymatic activity/volume] [facility] in Serum or Plasma Protein [Mass/volume] in 6.7 g/dL 6.4-8.2 [facility] - Good Serum or Plasma [facility] ital Albumin [Mass/volume] in 3.4 g/dL 3.5-4.7 Below low normal [facility] - Good Serum or Plasma by [facility] ospital Bromocresol purple (BCP) dye binding method Globulin [Mass/volume] in 3.3 g/dL 1.7-4.7 [facility] - Good Serum by calculation [facility] Albumin/Globulin [Mass 1.1 0.7-2.8 [facility] - Good Ratio] in Serum or Plasma [facility] ID Date Data Source [id number] 08/11/2019 01:09:42 AM EST [facility] Name Value Range Interpretation Description Data Sup porting Code Source(s) Document(s ) Magnesium 2.1 mg/dL 1.6-2.6 [facility] - Good [Mass/volume] [facility] in Serum or Hospital Plasma ID Date Data Source [id number] 08/11/2019 01:01:18 AM EST [facility] - Good [facility] Name Value Range Interpretation Description Data Sup porting Code Source(s) Document(s ) Leukocytes 7.7 K/uL 4.8-10.6 [facility] - [#/volume] in Good Blood by [facility] Automated count Hospital Erythrocytes 4.93 4.70-6.0 [facility] - [#/volume] in M/uL 0 Good Blood by [facility] count [facility] Hemoglobin 14.9 14.0-18. [facility] - [Mass/volume] in g/dL 0 [facility] Blood [facility] Hematocrit 44.4 % 42.0-52. [facility] - [Volume 0 Good Fraction] of [facility] Blood by Hospital Automated count Erythrocyte mean 90.1 FL 81.0-94. [facility] - corpuscular 0 Good volume [Entitic [facility] volume] by Hospital Automated count Erythrocyte mean 30.2 PG 27.0-35. [facility] - corpuscular 0 Good hemoglobin [facility] [Entitic mass] Hospital by Automated count Erythrocyte mean 33.6 30.7-37. [facility] - corpuscular g/dL 3 Good hemoglobin [facility] Hospital [Mass/volume] by Automated count Erythrocyte 12.5 % 11.5-14. [facility] - distribution 0 Good width [Ratio] by [facility] Automated count [facility] Platelets 189 K/uL 130-400 [facility] - [#/volume] in Good Blood by [facility] Platelet mean 9.0 FL 9.2-11.8 Below low normal [facility] - volume [Entitic Good volume] in Blood [facility] Automated Hospital count Nucleated 0.0 PER 0 [facility] - erythrocytes/100 100 WBC Good leukocytes [facility] [Ratio] in Blood Hospital Nucleated 0.00 0.0-0.01 [facility] - erythrocytes K/uL Good [#/volume] in [facility] Blood [facility] Segmented 59 % 48.0-72. [facility] - neutrophils/100 0 Good leukocytes in [facility] Lymphocytes/100 29 % 18.0-40. [facility] - leukocytes in 0 [facility] Blood [facility] Monocytes/100 7 % 2.0-12.0 [facility] - leukocytes in [facility] Blood [facility] Eosinophils/100 5 % 0.0-7.0 [facility] - leukocytes in [facility] Basophils/100 1 % 0.0-3.0 [facility] - leukocytes in [facility] Immature 0 % 0-0.5 [facility] - granulocytes/100 Good leukocytes in [facility] by Hospital Automated count Segmented 4.6 K/UL 2.3-7.6 [facility] - neutrophils Good [#/volume] in [facility] Lymphocytes 2.2 K/UL 0.9-4.2 [facility] - [#/volume] in [facility] Monocytes 0.5 K/UL 0.1-1.7 [facility] - [#/volume] in [facility] Eosinophils 0.4 K/UL 0.0-1.0 [facility] - [#/volume] in [facility] Basophils 0.1 K/UL 0.0-0.4 [facility] - [#/volume] in [facility] Immature 0.0 K/UL 0.0-0.17 [facility] - granulocytes Good [#/volume] in [facility] by Hospital Automated count Differential [facility] - cell count [facility] Procedure Social History Code Duration Value Status Description Data Source(s ) Alcohol intake 01/08/2020 Current completed Current [facility] 12:00:00 AM EDT non-drinker non-drinker of [facility] [employer] alcohol (finding) [employer] (finding) Tobacco use and 01/08/2020 Never used completed Never used [facility] exposure 12:00:00 AM EDT [employer] Smoking 01/08/2020 Never smoker completed Never smoker [place] [facility] 12:00:00 AM EDT [employer] Alcohol intake 12/25/2019 Current completed Current [place] [facility] 12:00:00 AM EDT non-drinker non-drinker of [employer] alcohol (finding) [employer] (finding) Tobacco use and 12/25/2019 Never used completed Never used [facility] exposure 12:00:00 AM EDT [employer] Smoking 12/25/2019 Never smoker completed Never smoker [place] [facility] 12:00:00 AM EDT [employer] Alcohol intake 12/12/2019 Current completed Current [place] [facility] 12:00:00 AM EDT non-drinker non-drinker of [employer] alcohol alcohol (finding) [employer] (finding) Smoking 12/12/2019 Never smoker completed Never smoker [facility] [facility] 12:00:00 AM EDT [employer] Alcohol intake 12/05/2019 Current completed Current [place] 12:00:00 AM EDT non-drinker non-drinker of [place] of alcohol alcohol (finding) [employer] (finding) Tobacco use and 12/05/2019 Never used completed Never used [facility] exposure 12:00:00 AM EDT [employer] Smoking 12/05/2019 Never smoker completed Never smoker [place] [facility] 12:00:00 AM EDT [employer] Alcohol intake 12/01/2019 Current completed Current [place] 12:00:00 AM EDT non-drinker non-drinker of [employer] alcohol (finding) [employer] (finding) Smoking 12/01/2019 Never smoker completed Never smoker [place] [facility] 12:00:00 AM EDT [employer] Alcohol intake 11/14/2019 Current completed Current [place] [facility] 12:00:00 AM EDT non-drinker non-drinker of [place] of alcohol alcohol (finding) [employer] (finding) Smoking 11/14/2019 Never smoker completed Never smoker [facility] [facility] 12:00:00 AM EDT [employer] Alcohol intake 11/10/2019 Current completed Current [place] [facility] 12:00:00 AM EDT non-drinker non-drinker of [place] of alcohol alcohol (finding) [employer] (finding) Smoking 11/10/2019 Never smoker completed Never smoker [facility] [facility] 12:00:00 AM EDT [employer] Alcohol intake 09/06/2019 Current completed Current [place] [facility] 12:00:00 AM EDT non-drinker non-drinker of [place] of alcohol alcohol (finding) [employer] (finding) Smoking 09/06/2019 Never smoker completed Never smoker [facility] [employer] 12:00:00 AM EDT [employer] Alcohol intake 08/16/2019 Current completed Current [place] [facility] 12:00:00 AM EST non-drinker non-drinker of [employer] alcohol (finding) [employer] (finding) Smoking 08/16/2019 Never smoker completed Never smoker [facility] 12:00:00 AM EST [employer] Alcohol intake 08/10/2019 Current completed Current [place] [facility] 12:00:00 AM EST non-drinker non-drinker of [employer] alcohol (finding) [employer] (finding) Smoking 08/10/2019 Never smoker completed Never smoker [facility] 12:00:00 AM EST [employer] Alcohol intake 07/21/2019 Current completed Current [place] [facility] 12:00:00 AM EST non-drinker non-drinker of [employer] alcohol (finding) [employer] (finding) Smoking 07/21/2019 Never smoker completed Never smoker [facility] 12:00:00 AM EST [employer] Smoking 07/29/2018 Never smoker completed Never smoker [facility] 12:00:00 AM EST [employer] Smoking 07/19/2018 Never smoker completed Never smoker [facility] 12:00:00 AM EST [employer] Smoking 07/11/2018 Never smoker completed Never smoker [place] 12:00:00 AM [employer] Vital Signs ID Date Data Source UNK Name Value Range Interpretation Code Description Data Source(s) Oxygen saturation 98 % 98 % Steve Bates ours in Arterial blood [employer] by Pulse oximetry [employer] Body mass index 48.95 kg/m2 48.95 kg/m2 [facility] Sec ours (BMI) [Ratio] [employer] Body weight 136.533 kg 136.533 kg [facility] Body height 167 cm 167 cm [facility] Respiratory rate 12 /min 12 /min [facility] [employer] Body temperature 36.56 May 36.56 May [facility] [employer] Heart rate 102 /min 102 /min [facility] Diastolic blood 60 mm[Hg] 60 mm[Hg] [facility] pressure [employer] Systolic blood 100 mm[Hg] 100 mm[Hg] [facility] pressure [facility] Diastolic blood 80 mm[Hg] 80 mm[Hg] [facility] pressure [employer] Systolic blood 122 mm[Hg] 122 mm[Hg] [place] [facility] pressure [employer] Respiratory rate 20 /min 20 /min [facility] [employer] [facility] [employer] Heart rate 70 /min 70 /min [facility] Diastolic blood 70 mm[Hg] 70 mm[Hg] [facility] pressure [employer] Systolic blood 124 mm[Hg] 124 mm[Hg] [place] [facility] pressure [employer] Respiratory rate 18 /min 18 /min [facility] [employer] [facility] [employer] Body temperature 36.56 May 36.56 May [facility] [employer] Heart rate 88 /min 88 /min [facility] [employer] Diastolic blood 86 mm[Hg] 86 mm[Hg] [facility] pressure [employer] Systolic blood 110 mm[Hg] 110 mm[Hg] [place] [facility] pressure [employer] Oxygen saturation 98 % 98 % [facility] in Arterial blood [email or web address] by Pulse oximetry [facility] [employer] Body mass index 47.98 kg/m2 47.98 kg/m2 [facility] (BMI) [Ratio] Bel[facility] Body weight 133.811 kg 133.811 kg [facility] [employer] Body height 167 cm 167 cm [facility] Respiratory rate 12 /min 12 /min [facility] [employer] Body temperature 36.67 May 36.67 May [facility] [employer] Heart rate 100 /min 100 /min [facility] [employer] [facility] [employer] Diastolic blood 66 mm[Hg] 66 mm[Hg] [facility] pressure [employer] Systolic blood 102 mm[Hg] 102 mm[Hg] [place] [facility] pressure [employer] Respiratory rate 20 /min 20 /min [facility] [employer] [facility] [employer] Heart rate 70 /min 70 /min [facility] [employer] Diastolic blood 68 mm[Hg] 68 mm[Hg] [facility] pressure [employer] Systolic blood 120 mm[Hg] 120 mm[Hg] [place] [facility] pressure [employer] Respiratory rate 18 /min 18 /min [facility] [employer] Heart rate 68 /min 68 /min [facility] [employer] [facility] [employer] Diastolic blood 68 mm[Hg] 68 mm[Hg] [facility] pressure [employer] Systolic blood 112 mm[Hg] 112 mm[Hg] [place] [facility] pressure [employer] Respiratory rate 20 /min 20 /min [facility] [employer] Body temperature 36.56 May 36.56 May [facility] [employer] Heart rate 92 /min 92 /min [facility] [employer] [facility] [employer] Diastolic blood 70 mm[Hg] 70 mm[Hg] [facility] pressure [employer] Systolic blood 110 mm[Hg] 110 mm[Hg] [place] [facility] pressure [employer] Respiratory rate 20 /min 20 /min [facility] [employer] Heart rate 68 /min 68 /min [facility] [employer] [facility] [employer] Diastolic blood 72 mm[Hg] 72 mm[Hg] [facility] pressure [employer] Systolic blood 112 mm[Hg] 112 mm[Hg] [place] [facility] pressure [employer] Respiratory rate 20 /min 20 /min [facility] [employer] Heart rate 82 /min 82 /min [facility] [employer] Diastolic blood 66 mm[Hg] 66 mm[Hg] [facility] pressure [employer] Systolic blood 110 mm[Hg] 110 mm[Hg] [place] pressure [employer] Respiratory rate 14 /min 14 /min [facility] [employer] Body temperature 36.89 May 36.89 May [facility] [employer] Heart rate 72 /min 72 /min [facility] [employer] [facility] [employer] Diastolic blood 74 mm[Hg] 74 mm[Hg] [facility] pressure [facility] Systolic blood 128 mm[Hg] 128 mm[Hg] [place] pressure [email or web address] [facility] Respiratory rate 20 /min 20 /min [facility] [employer] [facility] [employer] Heart rate 68 /min 68 /min Bon [employer] System [employer] Diastolic blood 64 mm[Hg] 64 mm[Hg] [facility] pressure [email or web address] [facility] Systolic blood 108 mm[Hg] 108 mm[Hg] [place] pressure [employer] [facility] [employer] Respiratory rate 18 /min 18 /min [facility] [employer] [facility] [employer] Heart rate 80 /min 80 /min Bon [employer] [employer] Inc Diastolic blood 70 mm[Hg] 70 mm[Hg] [facility] pressure [employer] Systolic blood 98 mm[Hg] 98 mm[Hg] [place] pressure [employer] Respiratory rate 20 /min 20 /min [facility] [employer] Body temperature 36.56 May 36.56 May [facility] [employer] [facility] [employer] Heart rate 78 /min 78 /min De[employer] System Inc Diastolic blood 60 mm[Hg] 60 mm[Hg] [facility] pressure [employer] Systolic blood 110 mm[Hg] 110 mm[Hg] [place] pressure [employer] Body mass index 48.95 kg/m2 48.95 kg/m2 [facility] (BMI) [Ratio] [employer] Body weight 136.533 kg 136.533 kg K [facility] Inc Respiratory rate 18 /min 18 /min [facility] [employer] Body temperature 36.56 May 36.56 May [facility] [employer] Heart rate 80 /min 80 /min [employer] [facility] [employer] Diastolic blood 70 mm[Hg] 70 mm[Hg] [facility] pressure [employer] Systolic blood 128 mm[Hg] 128 mm[Hg] [place] pressure [employer] Oxygen saturation 98 % 98 % [facility] ours in Arterial blood Bela [facility] by Pulse oximetry [facility] [employer] Body mass index 48.95 kg/m2 48.95 kg/m2 [facility] (BMI) [Ratio] [employer] Body weight 136.533 kg 136.533 kg K [employer] Body height 167 cm 167 cm K [employer] [employer] Respiratory rate 14 /min 14 /min [facility] [employer] Body temperature 36.44 May 36.44 May [facility] [employer] Heart rate 98 /min 98 /min K [employer] Diastolic blood 60 mm[Hg] 60 mm[Hg] [facility] pressure [employer] Systolic blood 110 mm[Hg] 110 mm[Hg] [place] pressure [employer] Oxygen saturation 96 % 96 % [facility] ours in Arterial blood [facility] by Pulse oximetry System Inc Respiratory rate 18 /min 18 /min [facility] [employer] Body temperature 36.72 May 36.72 May [facility] [employer] Heart rate 80 /min 80 /min [facility] Diastolic blood 88 mm[Hg] 88 mm[Hg] [facility] pressure [employer] Systolic blood 128 mm[Hg] 128 mm[Hg] [place] pressure [employer] Body mass index 48.97 kg/m2 48.97 kg/m2 [facility] (BMI) [Ratio] [employer] [facility] Body weight 136.578 kg 136.578 kg K [employer] Body height 167 cm 167 cm K Spine [facility] Oxygen saturation 98 % 98 % [facility] ours in Arterial blood Bela [facility] by Pulse oximetry System Inc Body mass index 48.30 kg/m2 48.30 kg/m2 [facility] ours (BMI) [Ratio] [employer] [facility] Body weight 134.718 kg 134.718 kg K [employer] Body height 167 cm 167 cm K [employer] Respiratory rate 14 /min 14 /min [facility] [employer] Body temperature 37.33 May 37.33 May [facility] [employer] Heart rate 100 /min 100 /min K [employer] Diastolic blood 68 mm[Hg] 68 mm[Hg] Bon [facility] pressure [email or web address] [facility] Systolic blood 118 mm[Hg] 118 mm[Hg] [place] pressure [employer] Oxygen saturation 98 % 98 % [facility] ours in Arterial blood Bela [facility] by Pulse oximetry System [employer] Body mass index 47.49 kg/m2 47.49 kg/m2 [facility] ours (BMI) [Ratio] [employer] [facility] Body weight 132.45 kg 132.45 kg K [employer] Body height 167 cm 167 cm K [employer] Respiratory rate 12 /min 12 /min [facility] [employer] Body temperature 36.44 May 36.44 May [facility] [employer] Heart rate 88 /min 88 /min K [employer] Diastolic blood 70 mm[Hg] 70 mm[Hg] [facility] pressure [employer] Systolic blood 102 mm[Hg] 102 mm[Hg] [place] pressure [employer] Oxygen saturation 92 % 92 % [facility] ours in Arterial blood [employer] by Pulse oximetry System Inc Body mass index 45.86 kg/m2 45.86 kg/m2 [facility] (BMI) [Ratio] [facility] Body weight 133.811 kg 133.811 kg [facility] [employer] Body height 170.8 cm 170.8 cm K [employer] Respiratory rate 12 /min 12 /min [facility] [employer] Body temperature 36.67 May 36.67 May [facility] [employer] Heart rate 88 /min 88 /min K [employer] Diastolic blood 80 mm[Hg] 80 mm[Hg] Bon [facility] pressure [employer] Systolic blood 120 mm[Hg] 120 mm[Hg] [place] pressure [employer] Oxygen saturation 95 % 95 % [facility] ours in Arterial blood [employer] by Pulse oximetry System Inc Respiratory rate 18 /min 18 /min [facility] [employer] Body temperature 36.44 May 36.44 May [facility] [employer] Heart rate 100 /min 100 /min K [employer] Diastolic blood 80 mm[Hg] 80 mm[Hg] [facility] pressure [employer] Inc Systolic blood 123 mm[Hg] 123 mm[Hg] [place] pressure [employer] Body mass index 46.99 kg/m2 46.99 kg/m2 [facility] (BMI) [Ratio] [employer] Body weight 136.079 kg 136.079 kg [facility] Body height 170.2 cm 170.2 cm K [employer] Oxygen saturation 96 % 96 % [facility] ours in Arterial blood [employer] by Pulse oximetry System Inc Body mass index 45.55 kg/m2 45.55 kg/m2 [facility] (BMI) [Ratio] [employer] Body weight 132.904 kg 132.904 kg [facility] Body height 170.8 cm 170.8 cm [facility] Respiratory rate 14 /min 14 /min [facility] [employer] [facility] [employer] Body temperature 35.89 May 35.89 May [facility] [employer] [facility] [employer] Heart rate 96 /min 96 /min [facility] Diastolic blood 78 mm[Hg] 78 mm[Hg] Bon [facility] pressure [employer] [facility] [employer] Systolic blood 116 mm[Hg] 116 mm[Hg] [place] pressure [employer] [facility] [employer] Oxygen saturation 92 % 92 % [facility] ours in Arterial blood [facility] by Pulse oximetry System Inc Respiratory rate 15 /min 15 /min [facility] [employer] [facility] [employer] Heart rate 96 /min 96 /min Bon [employer] [employer] Inc Diastolic blood 86 mm[Hg] 86 mm[Hg] [facility] pressure [employer] [facility] [employer] Systolic blood 121 mm[Hg] 121 mm[Hg] [place] pressure [employer] Body mass index 40.18 kg/m2 40.18 kg/m2 [facility] (BMI) [Ratio] [facility] Body weight 127.007 kg 127.007 kg K [employer] Body height 177.8 cm 177.8 cm K [employer] Body temperature 36.72 May 36.72 May [facility] urs [employer] Body temperature 36.33 May 36.33 May [facility] [employer] Oxygen saturation 96 % 96 % [facility] ours in Arterial blood [facility] by Pulse oximetry System Inc Respiratory rate 21 /min 21 /min [facility] [employer] [facility] [employer] Heart rate 85 /min 85 /min [employer] Diastolic blood 88 mm[Hg] 88 mm[Hg] [facility] pressure [employer] [facility] [employer] Systolic blood 155 mm[Hg] 155 mm[Hg] [place] pressure [employer] [facility] [employer] Body mass index 40.18 kg/m2 40.18 kg/m2 [facility] (BMI) [Ratio] [employer] [facility] Body weight 127.007 kg 127.007 kg K [employer] Body height 177.8 cm 177.8 cm K [employer] Oxygen saturation 98 % 98 % [facility] ours in Arterial blood [facility] by Pulse oximetry System Inc Body mass index 44.66 kg/m2 44.66 kg/m2 [facility] (BMI) [Ratio] [employer] Body weight 128.368 kg 128.368 kg [facility] [employer] Body height 169.5 cm 169.5 cm [facility] [employer] Respiratory rate 12 /min 12 /min [facility] [employer] Body temperature 36.28 May 36.28 May [facility] [employer] Heart rate 68 /min 68 /min [facility] [employer] Diastolic blood 80 mm[Hg] 80 mm[Hg] [facility] pressure [employer] Systolic blood 122 mm[Hg] 122 mm[Hg] [place] pressure [employer] Oxygen saturation 96 % 96 % [facility] in Arterial blood [employer] by Pulse oximetry System Inc Diastolic blood 53 mm[Hg] 53 mm[Hg] [facility] pressure [employer] Systolic blood 107 mm[Hg] 107 mm[Hg] [place] pressure [employer] Respiratory rate 17 /min 17 /min [facility] [employer] Body temperature 37.11 May 37.11 May [facility] [employer] Heart rate 58 /min 58 /min Bon [employer] Body mass index 38.06 kg/m2 38.06 kg/m2 [facility] (BMI) [Ratio] [facility] Body weight 110.224 kg 110.224 kg [facility] [employer] Body height 170.2 cm 170.2 cm [facility] [employer] Oxygen saturation 98 % 98 % [facility] in Arterial blood Bela [facility] by Pulse oximetry System Inc Body mass index 37.71 kg/m2 37.71 kg/m2 [facility] (BMI) [Ratio] [facility] Body weight 108.41 kg 108.41 kg [facility] [employer] Body height 169.5 cm 169.5 cm [facility] Respiratory rate 16 /min 16 /min [facility] [employer] Body temperature 36.44 May 36.44 May [facility] [employer] Heart rate 74 /min 74 /min [facility] [employer] Diastolic blood 70 mm[Hg] 70 mm[Hg] [facility] pressure [facility] Systolic blood 94 mm[Hg] 94 mm[Hg] [place] pressure [email or web address] Oxygen saturation 98 % 98 % [facility] in Arterial blood Bela [facility] by Pulse oximetry System Inc Respiratory rate 17 /min 17 /min [facility] [email or web address] Body temperature 36.33 May 36.33 May [facility] [email or web address] Heart rate 87 /min 87 /min [facility] [employer] Diastolic blood 75 mm[Hg] 75 mm[Hg] [facility] pressure [email or web address] Systolic blood 121 mm[Hg] 121 mm[Hg] [place] pressure [email or web address] Body mass index 39.94 kg/m2 39.94 kg/m2 [facility] (BMI) [Ratio] Bela [facility] [employer] Body weight 108.863 kg 108.863 kg [facility] Measured [email or web address] [facility] Body height 165.1 cm 165.1 cm Bon [employer]ixours Fanminder [facility] Patient Treatment Plan of Care Planned Activity Planned Date Details Description Data Source (s) Propranolol Hydrochloride 01/08/2020 Francisco Javier n [facility] Bela 10 MG Oral Tablet 12:00:00 AM [employer] Clonazepam 0.5 MG Oral 12/25/2019 [facility] Bela Tablet 12:00:00 AM EDT [facility] [employer] Ibuprofen 200 MG Oral 12/22/2019 Bon [facility] Bela Tablet 12:00:00 AM ED [facility] olanzapine 5 MG Oral Tablet 12/09/2019 [facility] 09:00:00 AM ED [facility] [employer] Olmesartan medoxomil 20 MG 12/09/2019 B on [facility] Bela Oral Tablet 12:00:00 AM EDT [facility] [employer] olanzapine 5 MG Oral Tablet 12/09/2019 [facility]a 12:00:00 AM EDT [facility] [employer] Losartan Potassium 50 MG 12/09/2019 [facility]a Oral Tablet 12:00:00 AM EDT [facility] [employer] Clonazepam 0.5 MG Oral 12/08/2019 [facility] Bela Tablet 12:00:00 AM EDT [facility] [employer] Risperidone 2 MG Oral 12/04/2019 [facility] Bela Tablet 12:00:00 AM EDT [facility] Haines Carbonate 300 MG 11/30/2019 [facility]a [...] Bela Release Oral Tablet 12:00:00 AM EDT [employer] [facility] [employer] Bisacodyl 5 MG Delayed 10/31/2019 [facility] Bela Release Oral Tablet 01:50:17 PM EDT [employer] [facility] [employer] Acetaminophen 325 MG Oral 10/29/2019 Francisco Javier n [facility] Bela Tablet 02:44:40 PM EDT Health Sy[facility] Inc sodium chloride (NS) flush 10/29/2019 B on [facility] Bela 5-40 mL 11:01:53 AM EDT Health [employer] Inc 24 HR Bupropion 10/17/2019 [facility] Hydrochloride 150 MG 12:00:00 AM EDT [employer] [facility] [employer] Extended Release Oral Tablet 24 HR Bupropion 10/17/2019 [facility] Hydrochloride 300 MG 12:00:00 AM EDT [employer] [facility] [employer] Extended Release Oral Tablet Vraylar 3 mg capsule 09/03/2019 [facility] Bela 12:00:00 AM EDT Health Sy[employer] [facility] Inc Amitriptyline Hydrochloride 08/20/2019 [facility] 150 MG Oral Tablet 12:00:00 AM [facility] Haines Carbonate 150 MG 08/16/2019 [facility] Oral Capsule 12:00:00 AM EST Health [facility] Inc Prednisone 50 MG Oral 08/16/2019 [facility] Bela Tablet 12:00:00 AM EST [employer] Cyclobenzaprine 07/21/2019 [facility] hydrochloride 10 MG Oral 12:00:00 AM EST [facility] Tablet Acetaminophen 325 MG / 07/21/2019 [facility] Bela Oxycodone Hydrochloride 5 12:00:00 AM EST [facility] MG Oral Tablet VRAYLAR 6 mg capsule 07/07/2019 [facility] Bela 12:00:00 AM EST [facility] Inc valacyclovir 1000 MG Oral 07/17/2018 Francisco Javier n [facility] Bela Tablet 12:00:00 AM EST Health [facility] Inc Risperidone 1 MG Oral 12/07/2017 [facility] Bela Tablet 12:00:00 AM EDT Health [facility] Inc Alprazolam 1 MG Oral Tablet 12/07/2017 [facility] 12:00:00 AM EDT Health [facility] Inc lamotrigine 25 MG Oral 12/07/2017 Bon S [employer] Tablet 12:00:00 AM EDT Health Sy[employer] Inc Clonazepam 2 MG Oral Tablet [facility] cariprazine (Vraylar) 6 mg B on [employer] BelaPerficient [facility] 24 HR Bupropion [facility] Bela Hydrochloride 300 MG Health System Inc Extended Release Oral Tablet fluoxetine HCl (PROZAC PO) B [facility] ziprasidone 80 MG Oral Bon S [employer] [facility]c valacyclovir 500 MG Oral [facility] [email or web address] Tablet [Valtrex] Health Syst em Inc
[2020-03-22 06:36] VITALS: BMI 47.4
[2020-03-22] MEDS ORDERED: KETAMINE HCL 500 MG/10 ML VIAL ONE (07:20)
[2020-03-22] MEDS ORDERED: SUCCINYLCHOLINE CHLORIDE 200 MG/10 ML SYRINGE ONE (07:25)
[2020-03-22 08:22] VITALS: TEMP 98.4
[2020-03-22 09:14] VITALS: BP 128/80; PULSE 80
== END 2020-03-22 09:10 | disposition home or self-care (01) ==
LOC: FECT 05:52
PROVIDERS: ATTEND Psychiatry & Neurology Psychiatry
PROC: GZB4ZZZ Other Electroconvulsive Therapy (ICD-10-PCS; principal; 2020-03-22 07:00)
DX: F32.9 Major depressive disorder, single episode, unspecified (principal)
CPT/HCPCS: 90870; 94760; U0003

== ENCOUNTER 2020-03-25 06:47 | Day surgery (SDC) | payer OTHER ==
[2020-03-22 07:24] VITALS: BMI 47.4
[2020-03-25 07:21] VITALS: TEMP 97.8
[2020-03-25] MEDS ORDERED: ONDANSETRON 4 MG/2 ML VIAL IVPUSH PRN (08:03)
[2020-03-25] MEDS ORDERED: LACTATED RINGERS SOLUTION 1,000 ML IV SCH (08:15)
[2020-03-25] MEDS ORDERED: KETAMINE HCL 500 MG/10 ML VIAL ONE (08:16)
[2020-03-25] MEDS ORDERED: SUCCINYLCHOLINE CHLORIDE 200 MG/10 ML SYRINGE ONE (08:28)
[2020-03-25] MEDS ORDERED: PROPOFOL 20 ML ONE (08:28)
[2020-03-25] MEDS ORDERED: DEXAMETHASONE SOD PHOSPHATE 4 MG/1 ML VIAL ONE (08:29)
[2020-03-25] MEDS ORDERED: ONDANSETRON 4 MG/2 ML VIAL ONE (08:29)
[2020-03-25 09:47] VITALS: BP 112/70; PULSE 72
== END 2020-03-25 09:50 | disposition home or self-care (01) ==
LOC: FECT 06:47
PROVIDERS: ATTEND Psychiatry & Neurology Psychiatry
PROC: GZB4ZZZ Other Electroconvulsive Therapy (ICD-10-PCS; principal; 2020-03-25 09:00)
DX: F32.9 Major depressive disorder, single episode, unspecified (principal)
CPT/HCPCS: 90870; 94760; U0003

== ENCOUNTER 2020-03-26 06:11 | Day surgery (SDC) | payer OTHER ==
[2020-03-22 07:27] VITALS: BMI 47.4
--- OUTSIDE RECORDS SUMMARY | 2020-03-26 06:18 | XMS ---
:1970 Author Organization [facility] Care Team Providers Name Role Phone RITIKA [...] is protected by Article 27-F of the [place] State Public Health law. If you continue you may haveaccess to information: Regarding HIV / AIDS; Provided by facilities licensed or operated by the [facility] Office of Mental Health; or Provided by the [facility] Office for People With Developmental Disabilities. If such information is present, then the following [facility] mandated warning applies: This information has [...] law may result in a fine or penitentiary sentence or both. A general authorization for the release of medical or other information is NOT sufficient authorization for further disclosure. Encounters Encounter Providers Location Date Indications Data Source(s ) Outpatient 01/08/2020 03:30:00 [facility] PM EDT - 01/12/2020 [facility] 10:23:35 AM EDT Patient discharged. Attender: MARIYA CATHERINE 01/01/2020 12:00:00 AM Bon [facility] Attender: MAURICIO 12/30/2019 12:00:00 AM [facility] Attender: MARIYA CATHERINE 12/29/2019 12:00:00 AM [facility] 12/25/2019 04:00:00 PM [facility] 06:48:40 [facility] PM EDT Patient discharged. OL 12/25[facility]2019 [facility] 11:59:00 PM EDT Attender: MARIYA 12/25/2019 12:00:00 AM [facility] Attender: SUSI LONGO 12/25/2019 12:00:00 AM [facility] Attender: MAURICIO 12/24/2019 12:00:00 AM [facility] Attender: MARIYA 12/22/2019 12:00:00 AM [facility] Attender: SUSI LONGO 12/22/2019 12:00:00 AM [facility] Attender: MAURICIO 12/19/2019 12:00:00 AM [facility] Attender: MARIYA 12/18/2019 12:00:00 AM [facility] Attender: GLADIS FUNEZ 12/18/2019 12:00:00 AM [facility] Attender: SUSI LONGO 12/17/2019 12:00:00 AM [facility] Attender: MAURICIO 12/16/2019 12:00:00 AM [facility] Attender: MARIYA 12/15/2019 12:00:00 AM [facility] Attender: XANDER COLBERT 12/13/2019 12:00:00 AM [facility] Outpatient 12/12/2019 12:00:00 PM Francisco Javier n [facility] EDT - 12/12/2019 [facility] 01:20:23 PM EDT Patient discharged. Attender: ROSSI 12/08/2019 05:55:36 [facility] - 01/02/2020 [facility] 12:00:00 AM EDT System In c Inpatient Admitter: RITIKA 12/05/2019 12:00:00 General [facility] AM EDT - 12/08/2019 [facility] 03:44:00 PM EDT General Weakness Patient discharged. Outpatient 12/05/2019 12:00:00 AM EDT [facility] Outpatient 12/01/2019 03:45:00 PM EDT - [facility] 12/01/2019 05:01:16 PM EDT Inc Patient discharged. Outpatient 11/14/2019 01:00:00 PM EDT - [facility] 11/18/2019 11:56:43 AM EDT System Inc Patient discharged. Outpatient 11/10/2019 09:00:00 AM EDT - [facility] 11/10/2019 04:44:05 PM EDT System Inc Patient discharged. Inpatient Admitter: RITIKA CANAS 10/29/2019 12:00:00 AM let hargic [facility] EDT - 11/03/2019 [facility] 04:02:00 PM EDT lethargic Patient discharged. Outpatient 09/15/2019 08:22:58 AM EDT [facility] - 09/15/2019 11:59:00 PM Hospital EDT Outpatient 09/10/2019 04:00:00 PM EDT [facility] Outpatient 09/04/2019 03:15:00 PM EDT [facility] Outpatient 08/19/2019 07:31:00 AM EST [facility] ([facility]) Outpatient 08/18/2019 06:35:00 AM EST [facility] ([facility]) Outpatient 08/17/2019 07:16:00 AM EST [facility] ([facility]) Emergency 08/16/2019 12:00:00 AM EST Shortness of Breath [facility] - 08/16/2019 10:45:00 PM Hospital EST Shortness of Breath Patient discharged. Outpatient 08/11/2019 12:05:00 AM EST [facility] Emergency 08/10/2019 12:00:00 AM EST - Chest P ain [facility] 08/11/2019 01:42:00 AM EST Hospital Chest Pain Patient discharged. Outpatient 07/21/2019 04:15:00 PM EST - [facility] 07/22/2019 10:51:43 AM EST System Inc Patient discharged. Immunizations Vaccine Date Status Description Data Source(s) New in 2012. 09/04/2019 completed Influenza 09/04/2019 [facility] IIV4 12:00:00 AM EDT Vaccine (Quad) [facility] IIV3. This is one 07/19/2018 completed Influenza 07/19/2018, [facility] of two codes 12:00:00 AM EST Vaccine 04/30/2014 Bela replacing CVX 15, He alth which is being [employer] retired. Influenza, 04/01/2016 completed Influenza 04/01/2016 [facility] injectable, MDCK, 12:00:00 AM EDT Vaccine (Quad) [facility] preservative [facility] quadrivalent Tdap 12/11/2014 completed Tdap 12/11/2014 [facility] 12:00:00 AM EDT [facility] [facility] IIV3. This is one 04/30/2014 completed Influenza 07/19/2018, [facility] of two codes 12:00:00 AM EST Vaccine 04/30/2014 Bela replacing CVX 15, He alth which is being [employer] retired. RAMAKRISHNA 06/12/2013 completed Influenza 06/12/2013 Bon [...] Tablet AL) 10 00 AM times [facility] EDT Indications: System Inc [...] Tablet tablet 5 mg EDT dose (after [facility] OLANZapine last Health (ZyPREXA) modification) S ystem tablet 5 mg on [employer] 12/09/19 at 0900, Until Discontinued Medication [...] on Sun Bela OLANZapine mg 12/07/19 at [facility] (ZyPREXA) 1400, Until Sys tem tablet 2.5 Discontinued I nc mg Medication administered onsite Rouse lithium 12/07/2019 300 Oral active 300 mg , Oral, Bon Carbonate carbonate SR 02:00:00 PM mg 2 TIMES DAILY, [facility] 300 MG (LITHOBID) EDT First dose o n Bela Extended tablet 300 Sun 0 at [facility] Release Oral mg 1400, Until System Tablet Discontinued Inc lithium carbonate SR (LITHOBID) tablet 300 mg Medication administered onsite Losartan losartan 12/07/2019 50 Oral active 50 m g, Oral, Bon Potassium 50 (COZAAR) 01:00:00 PM mg D AILY, [facility] MG Oral tablet 50 EDT dose on Sun Bela Tablet mg 12/07/19 at [facility] losartan 1300, Until Syst em (COZAAR) Discontinued Inc tablet 50 mg Medication administered onsite furosemide 23991-342-67 12/07/2019 20 IntraVENous complete d 20 mg, [...] 12/13/19 at 0900 Medication administered onsite furosemide 89562-609-52 12/06/2019 20 IntraVENous complete d edema 20 [...] il mg Discontinued Medication administered onsite 0.9% 4087-2675-65 12/05/2019 100 IntraVENous aborted 100 mL/hr, at [...] mg tablet Inc Shared psychotic disorder (HCC) [facility] lithium 11/30/2019 aborted Bon Carbonate 300 carbonate [...] (DULCOLAX) 5 Inc mg EC tablet cariprazine 588170 11/01/2019 6 mg Oral active 6 m [...] t dose on Bela hydrocortisone 11/01/19 at [facility] (HYTONE) 2.5 % 1800, Unti l System ointment Discontinued Inc Medication administered onsite Docusate docusate 10/31/2019 200 Oral active 200 mg, Oral, Bon Sodium 100 sodium 02:00:00 PM mg DAILY , [facility] MG Oral (COLACE) EDT dose on Sun C harity Capsule capsule 200 10/31/19 at [facility] docusate mg 1400, Until Syst em sodium [...] haloperidoL tablet 5 mg EDT ONCE, 1 [facility] (HALDOL) dose, [facility] tablet 5 mg Denise System 10/30/19 [facility] at 2100 Medication administered onsite amitriptyline 10/30/2019 150 mg Oral active 1 50 mg, Oral, Bon (ELAVIL) tablet 09:00:00 PM EV AN BEDTIME, [facility] 150 mg EDT First dose on [facility] ity Denise 10/30/19 at [facility] 2100, Until System I nc Discontinued Medication administered onsite Haloperidol 2 haloperidoL 10/30/2019 2 mg Oral aborted 2 mg, Oral, Bon MG Oral (HALDOL) 08:01:20 PM EVERY 6 [facility] Tablet tablet 2 mg EDT HOURS Ch arity haloperidoL NEEDED, [facility] h (HALDOL) Starting Denise Sys tem tablet 2 mg 10/30/19 at [facility] 2000, Until 10/31/19 at 2043, Psychosis, Agitation Medication administered onsite Rouse lithium 10/30/2019 300 Oral active 300 mg , Oral, Bon Carbonate carbonate 12:00:00 PM mg 2 T IMES DAILY, [facility] 300 MG Oral tablet 300 EDT First d ose on Bela Tablet mg Denise 10/30/19 at [facility] lithium 1200, Until Syste m carbonate Discontinued In c tablet 300 mg Medication administered onsite Clonazepam 1 clonazePAM 10/30/2019 1 mg Oral active 1 mg, Oral, 2 Bon MG Oral (KlonoPIN) 12:00:00 PM TIME S DAILY, [facility] Tablet tablet 1 mg EDT First dose on [facility] clonazePAM [facility] 10/30/19 at [facility] (KlonoPIN) 1200, Until Sy stem tablet 1 mg Discontinued [facility] Medication administered onsite 0.9% 6566-3332-00 10/29/2019 100 IntraVENous aborted 100 mL/hr, at Bon sodium 02:55:00 PM mL/h 100 mL/hr, [facility] chloride EDT IntraVENous, Jagruti rity infusion CONTINUOUS, [facility] Starting Wed System 10/29/19 at [facility] 1455, Until 11/01/19 at 1446 Medication administered onsite 0.4 ML enoxaparin 10/29/2019 40 SubCUTAneous active 40 mg, Bon Enoxaparin (LOVENOX) 02:55:00 PM mg Gallardo bCUTAneous, [facility] sodium 100 injection 40 EDT EVERY 24 Bela MG/ML mg HOURS, [facility] Prefilled dose on Sun Sys tem Syringe 10/29/19 at [facility] enoxaparin 1455, Until (LOVENOX) Discontinued injection 40 mg Medication administered onsite Acetaminophen acetaminophen 10/29/2019 650 Oral active 650 mg, Oral, Bon 325 MG Oral (TYLENOL) 02:44:40 PM mg E VERY 4 HOURS [facility] Tablet tablet 650 mg EDT NEEDED , Bela acetaminophen Starting [facility] (TYLENOL) 10/29/19 at [facility] tablet 650 mg 1444, Until Inc Discontinued, Mild Pain, Fever Medication administered onsite sodium 67070-893-33 10/29/2019 mL IntraVENous active 5-40 mL, Bon chloride 02:00:00 PM IntraVENo us, [facility] (NS) flush EDT EVERY 8 Charit y 5-40 mL HOURS, [facility] dose on Sun System 10/29/19 at Inc 1400, Until Discontinued Medication administered onsite sodium 49918-957-37 10/29/2019 mL IntraVENous active 5-40 mL, Bon [...] XL) 150 mg tablet Vraylar 3 mg 56431-882-80 09/03/2019 6 Oral aborted depre ssion Take [...] EST NOW, 1 Bela chewable tablet dose, [facility] 162 mg 08/16/19 System at 2103 Inc Medication administered onsite famotidine 08/16/2019 20 IntraVENous aborted 20 mg, Bon (PF) (PEPCID) 09:02:00 PM mg Intr aVENous, [facility] 20 mg in 0.9% EST EVERY 12 Ch arity sodium HOURS, [facility] chloride 10 dose on Sat S ystem mL injection 08/16/19 at [facility] 2102, Until Discontinued Medication administered onsite methylPREDNISolone 184218 08/16/2019 125 IntraVENous comple hyun 125 mg, Bon (PF) (Solu-MEDROL) 09:02:00 PM mg IntraVENous, [facility] injection 125 mg EST NOW, 1 d ose, Bela 08/16/19 Health at 2102 System Inc Medication administered onsite 0.9% 0894-9225-25 08/16/2019 1000 IntraVENous completed 1,000 mL, at [...] mg tablet for 3 System days. Inc Rouse lithium 08/16/2019 2 Oral active Take 2 [...] back pain due to trauma VRAYLAR 6 51046-976-29 07/07/2019 6 mg Oral aborted Bipolar Take [...] System DAILY Inc NEEDED FOR ANXIETY cariprazine 478599 6 mg Oral aborted Take 6 B [...] (with meals). valacyclovir valACYclovir Oral aborted T tsephanie by Bon 500 MG Oral (VALTREX) 500 [...] republican's [place] Inform ation relationship to boland [facility] [id number] [facility] [id number] [facility] [id number] [facility] HMO [id number] [facility] Commerical [id number] [facility] [id number] [facility] [id number] 900 HEALTH PLAN [facility] [id number] PLAN [facility] [id number] 900 HEALTH PLAN POLO [id number] POLO [id number] CIGNA O [id number] [facility] PPO [id number] [place] 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 [id number] [facility] [id number] 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 [id number] COMPENSATION [facility] [id number] GENERIC [phone] [id number] [phone] COMMERCIAL [facility] [id number] PLAN [facility] Commerical [id number] [facility] PPO [id number] PLAN [facility] [id number] PLAN 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 [id number] [facility] [id number] [facility] PPO [id number] [place] [address] Problems, Conditions, and Diagnoses Code Display Name Description Problem Type Effective Data Dates Source(s) T88.7XXA Abm-kktf-zgtltty Leq-aqwr-lmlczef [id number] 12/05/2019 Francisco Javier n [facility] adverse reaction to adverse reaction to 12:00:0 0 AM Bela medication medication [facility] foc[employer]us [facility] T50.905A Adverse drug Adverse drug 46833021 12/05/2019 Smilax s reaction, initial reaction, initial 12:00:00 AM [facility] encounter encounter [facility] [employer] G93.40 Encephalopathy acute Encephalopathy acute 35465997 12/04 [facility] 12:00:00 AM Bela [employer] F31.4 Bipolar disorder Bipolar disorder 71054420 10/29/2019 Francisco Javier n [facility] with severe with severe 12:00:00 AM Bela depression depression [facility] [employer] E55.9 Vitamin D deficiency Vitamin D deficiency 86152751 09/03 [facility] 12:00:00 AM [facility] foc.us [facility] F41.8 Mixed anxiety and Mixed anxiety and 03080071 09/04/2019 [facility] depressive disorder depressive disorder 12:00:0 0 AM [employer] E66.01 Morbid obesity Morbid obesity 13552379 07/21/2019 [facility] 12:00:00 AM [employer] Z98.84 Status post gastric Status post gastric 43960750 020 [facility] bypass for obesity bypass for obesity 12:00:00 AM [employer] F32.9 Depressive disorder Depressive disorder [id number] 020 [facility] 12:00:00 AM [employer] F31.9 Bipolar disorder Bipolar disorder 38312438 07/21/2019 Francisco Javier n [facility] 12:00:00 AM [employer] F41.9 Anxiety Anxiety 34133783 07/21/2019 [facility] 12:00:00 AM [employer] F32.9 Depression Depression 79074544 07/20/2018 [facility] 12:00:00 AM [employer] E66.01 Severe obesity Severe obesity 39190003 07/19/2018 [facility] 12:00:00 AM [employer] [id number] Spells Spells 51657342 04/08/2016 [facility] 12:00:00 AM [employer] G40.909 Seizure disorder Seizure disorder 84423321 04/30/2014 Francisco Javier n [facility] 12:00:00 AM [employer] M79.2 Neuropathic pain of Neuropathic pain of 87032654 014 [facility] shoulder shoulder 12:00:00 AM [employer] G47.00 Insomnia Insomnia 93259343 11/04/2013 [facility] 12:00:00 AM [employer] Z98.84 H/O gastric bypass H/O gastric bypass 81984550 3 [facility] 12:00:00 AM [employer] G25.2 Other specified Other specified Diagnosis 01/08/2020 [facility] forms of tremor forms of tremor 03:17:29 PM [facility] [employer] F31.4 Bipolar disorder, Bipolar disorder, Diagnosis 12/25/2019 [facility] - current episode current episode 04:40:00 PM Goo d depressed, severe, depressed, severe, EDT Mu-Ism without psychotic without psychotic Hospital features features F41.9 Anxiety disorder, Anxiety disorder, Diagnosis 12/25/2019 [facility] unspecified unspecified 04:04:24 PM [facility] R25.1 Tremor, unspecified Tremor, unspecified Diagnosis 020 [facility] 04:04:24 PM [facility] Z98.84 Bariatric surgery Bariatric surgery Diagnosis 12/25/2019 [facility] status status 04:04:24 PM [facility] T88.7XXA Unspecified adverse Unspecified adverse Diagnosis 020 [facility] - effect of drug or effect of drug or 11:10:37 AM Good medicament, initial medicament, initial [facility] encounter encounter Hospital G93.40 Encephalopathy, Encephalopathy, Diagnosis 12/05/2019 [facility] - unspecified unspecified 11:10:37 AM [facility] R41.82 Altered mental Altered mental Diagnosis 12/05/2019 [facility] - status, unspecified status, unspecified 11:10:3 7 AM [facility] F51.04 Psychophysiologic Psychophysiologic Diagnosis 11/14/2019 [facility] insomnia insomnia 01:22:52 PM [facility] F32.2 Major depressive Major depressive Diagnosis 09/15/2019 [facility] - disorder, single disorder, single 08:22:58 AM G ood episode, severe episode, severe EDT Aidan ritan without psychotic without psychotic Hospital features features F41.8 Other specified Other specified Diagnosis 09/04/2019 [facility] anxiety disorders anxiety disorders 03:49:01 PM [facility] F32.2 Major depressive Major depressive Diagnosis 09/04/2019 Francisco Javier n [facility] disorder, single disorder, single 03:49:01 PM C harity episode, severe episode, severe EDT Heal th without psychotic without psychotic System Inc features features Z23 Encounter for Encounter for Diagnosis 09/04/2019 [facility] immunization immunization 03:49:01 PM [facility] T78.40XA Allergy, Allergy, Diagnosis 08/16/2019 [facility] - unspecified, initial unspecified, initial 08:39 :16 PM Good encounter encounter [facility] R06.00 Dyspnea, unspecified Dyspnea, unspecified Diagnosis 08/10 [facility] - 11:27:27 PM [facility] F31.75 Bipolar disorder, in Bipolar disorder, in Diagnosis 07/21 [facility] partial remission, partial remission, 04:40:28 PM Bela most recent episode most recent episode EST Health depressed depressed [facility] [phone] essential tremor Diagnosis [facility] [id number] Bipolar disorder Diagnosis [facility] with severe [facility] depression ([facility]) [facility] [id number] Anxiety Diagnosis [facility] [phone] hypertension Diagnosis Bon [facility] 883 883 depression Diagnosis [facility] 883 883 depression Diagnosis [facility] [phone] edema Diagnosis [facility] 883 883 depression Diagnosis [facility] [phone] evangelina associated Diagnosis [facility] with bipolar [facility] 1255 1255 hypertension Diagnosis [facility] [id number] Anxiety Diagnosis Bon [facility] 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) disorder ([facility]) [facility] 3762 [id number] depression Diagnosis Bon [facility] associated with [facility] bipolar disorder [facility] [id number] Acute low back pain Diagnosis Bon [facility] due to trauma [facility] [id number] Acute low back pain Diagnosis [facility] due to trauma [facility] [id number] Bipolar disorder, in Diagnosis [facility] partial remission, Charit y most recent episode Healt h depressed ([facility]) System In c [id number] Herpes zoster Diagnosis Bon [facility] cephalicus [facility] Surgeries/Procedures Procedure Description Date Indications Data Source(s) HC HC Routine 12/25/2019 Bipolar 12/25/2019 Bipolar Francisco Javier n LITHIUM LITHIUM 4:41 PM EDT disorder 04:41:00 PM disorde r [facility] with severe EDT with severe [facility] depression depression He alth ([facility]) ([facility]) System Inc Bipolar disorder with severe depression ([facility]) GLUCOSE, POC GLUCOSE, POC Routine 12/08/2019 12/08/2019 Bon 11:35 AM 11:35:00 AM Sec ours EDT EDT [facility] METABOLIC METABOLIC Routine 12/07/2019 12/07/2019 Bon PANEL, BASIC PANEL, BASIC 4:40 AM EDT 04:40:00 A M [facility] EEG 12-26 HR EEG 12-26 HR Routine 12/06/2019 12/06/2019 Bon W/VIDEO W/VIDEO 10:25 AM 10:25:08 [facility] L[facility] HC LITHIUM Routine 12/06/2019 12/06/2019 Bon 4:25 AM EDT 04:25:00 AM [facility] HC LACTIC ACID HC LACTIC ACID STAT 12/05/2019 020 Bon 7:20 PM EDT 07:20:00 PM [facility] HC AMMONIA HC AMMONIA STAT 12/05/2019 12/05/2019 Bon 7:20 PM EDT 07:20:00 PM [facility] MRI BRAIN WO MRI BRAIN WO STAT 12/05/2019 12/05/2019 Bon CONT CONT 4:50 PM EDT 04:50:12 PM [facility] EEG 12-26 HR EEG 12-26 HR STAT 12/05/2019 12/05/2019 Bon W/VIDEO W/VIDEO 3:19 PM EDT 03:19:24 PM [facility] CULTURE, URINE CULTURE, URINE Routine 12/05/2019 020 Bon 2:45 PM EDT 02:45:00 PM [facility] URINALYSIS W/ URINALYSIS W/ STAT 12/05/2019 0 Bon RFLX RFLX 2:45 PM EDT 02:45:00 PM [facility] MICROSCOPIC MICROSCOPIC [facility] BILIRUBIN, BILIRUBIN, Routine 12/05/2019 12/05/2019 Bon CONFIRM CONFIRM 2:45 PM EDT 02:45:00 PM [facility] HC LACTIC ACID HC LACTIC ACID STAT 12/05/2019 020 Bon 12:40 PM 12:40:00 [facility] C[facility] HC CULTURE STAT 12/05/2019 12/05/2019 Bon BLOOD BLOOD 12:38 PM 12:38:00 PM Sec ours EDT EDT [facility] PROTHROMBIN PROTHROMBIN STAT 12/05/2019 12/05/2019 Bon TIME + INR TIME + INR 12:38 PM 12:38:00 PM [facility] EDT EDT [facility] CBC WITH CBC WITH STAT 12/05/2019 12/05/2019 Bon AUTOMATED DIFF AUTOMATED DIFF 12:38 PM 12:38:00 PM [facility] EDT EDT [facility] HC TROPONIN I HC TROPONIN I STAT 12/05/2019 0 Bon QUANT QUANT 12:38 PM 12:38:00 PM Sec ours EDT EDT [facility] METABOLIC METABOLIC STAT 12/05/2019 12/05/2019 Bon PANEL, PANEL, 12:38 PM 12:38:00 PM Sec ours COMPREHENSIVE COMPREHENSIVE EDT EDT [facility] MAGNESIUM MAGNESIUM STAT 12/05/2019 12/05/2019 Bon 12:38 PM 12:38:00 PM Sec ours EDT EDT [facility] HC LITHIUM HC LITHIUM STAT 12/05/2019 12/05/2019 Bon 12:38 PM 12:38:00 PM Sec ours EDT EDT [facility] CT HEAD WO CT HEAD WO STAT 12/05/2019 12/05/2019 Bon CONT CONT 12:30 PM 12:30:54 PM Sec ours EDT EDT [facility] HC CULTURE HC CULTURE STAT 12/05/2019 12/05/2019 Bon BLOOD BLOOD 12:30 PM 12:30:00 PM Sec ours EDT EDT [facility] XR PELV AP XR PELV AP STAT 12/05/2019 12/05/2019 Bon ONLY ONLY 12:14 PM 12:14:58 PM Sec ours EDT EDT [facility] XR CHEST PORT XR CHEST PORT STAT 12/05/2019 0 Bon 12:14 PM 12:14:51 PM Sec ours EDT EDT [facility] RT--OXYGEN RT--OXYGEN STAT 12/05/2019 12/05/2019 Bon CANNULA CANNULA 11:20 AM 11:20:37 AM Sec [facility] EDT EDT [facility] EEG DIGITAL EEG DIGITAL Routine 12/05/2019 12/05/2019 Bon ANALYSIS ANALYSIS 11:10 AM 11:10:37 AM S [facility] EDT EDT [facility] CBC WITH CBC WITH STAT 10/30/2019 10/30/2019 Bon AUTOMATED DIFF AUTOMATED DIFF 6:40 AM EDT 06:40: 00 AM [facility] EDT [facility] METABOLIC METABOLIC STAT 10/30/2019 10/30/2019 Bon PANEL, BASIC PANEL, BASIC 6:40 AM EDT 06:40:00 A M [facility] EDT [facility] URINALYSIS W/ URINALYSIS W/ STAT 10/29/2019 0 Bon RFLX RFLX 6:34 PM EDT 06:34:00 PM [facility] MICROSCOPIC MICROSCOPIC EDT [facility] XR CHEST PORT XR CHEST PORT STAT 10/29/2019 0 Bon 12:09 PM 12:09:04 PM Sec [facility] EDT EDT [facility] CT HEAD WO CT HEAD WO STAT 10/29/2019 10/29/2019 Bon CONT CONT 11:47 AM 11:47:42 AM Sec [facility] EDT EDT [facility] HC GLUCOSE HC GLUCOSE Routine 10/29/2019 10/29/2019 Bon POCT POCT 11:26 AM 11:26:00 AM Sec [facility] EDT EDT [facility] PROTHROMBIN PROTHROMBIN STAT 10/29/2019 10/29/2019 Bon TIME + INR TIME + INR 10:45 AM 10:45:00 AM [facility] EDT EDT [facility] CBC WITH CBC WITH STAT 10/29/2019 10/29/2019 Bon AUTOMATED DIFF AUTOMATED DIFF 10:45 AM 10:45:00 AM [facility] EDT EDT [facility] HC PARTIAL HC PARTIAL STAT 10/29/2019 10/29/2019 Bon THROMBOPLASTIN THROMBOPLASTIN 10:45 AM 10:45:00 AM [facility] / PTT / PTT EDT EDT [facility] METABOLIC METABOLIC STAT 10/29/2019 10/29/2019 Bon PANEL, PANEL, 10:45 AM 10:45:00 AM Sec [facility] COMPREHENSIVE COMPREHENSIVE EDT EDT [facility] HC LITHIUM HC LITHIUM STAT 10/29/2019 10/29/2019 Bon 10:45 AM 10:45:00 AM Sec [facility] EDT EDT [facility] XR SPINE LUMB XR SPINE LUMB Routine [...] n [facility] 9:00 PM EST 02:00:00 AM [facility] PROTEIN LOUNGE [facility] I nc CBC WITH AUTOMATED CBC WITH STAT 08/16/2019 0 [facility] DIFF AUTOMATED DIFF 9:00 PM EST 02:00:00 AM [facility] PROTEIN LOUNGE [facility] I nc TROPONIN I TROPONIN I STAT 08/16/2019 08/17/2019 [facility] 9:00 PM EST 02:00:00 AM [facility] PROTEIN LOUNGE [facility] I nc METABOLIC PANEL, METABOLIC PANEL, STAT 08/16/2019 [facility] COMPREHENSIVE COMPREHENSIVE 9:00 PM EST 02:00:00 AM [facility] PROTEIN LOUNGE [facility] I nc MAGNESIUM MAGNESIUM STAT 08/16/2019 08/17/2019 [facility] 9:00 PM EST 02:00:00 AM [facility] PROTEIN LOUNGE [facility] I nc LITHIUM LITHIUM STAT 08/16/2019 08/17/2019 Francisco Javier n [facility] 9:00 PM EST 02:00:00 AM [facility] PROTEIN LOUNGE [facility] I nc INFLUENZA A <td><content ID="[id number]">INFLUENZA A & B 07/26 Bon & B AG AG (RAPID 05:18:00 AM [facility] (RAPID TEST) TEST)</content></td><td>STAT</td><td>08/11/[address] [facility] 12:18 AM EST</td><td></td><td><paragraph Health styleCode="header">Results for this procedure are System in the <content Inc styleCode="[id number]">results section</content>.</paragraph></td> PROTHROMBIN PROTHROMBIN STAT 08/11/2019 08/11/2019 Bon TIME + INR TIME + INR 12:01 AM 05:01:00 AM [facility] D DIMER D DIMER STAT 08/11/2019 08/11/2019 Francisco Javier n 12:01 AM 05:01:00 AM [facility] CBC WITH CBC WITH STAT 08/11/2019 08/11/2019 Bon AUTOMATED DIFF AUTOMATED DIFF 12:01 AM 05:01:00 AM [facility] PTT PTT STAT 08/11/2019 08/11/2019 Francisco Javier n 12:01 AM 05:01:00 AM Sec [facility] TROPONIN I TROPONIN I STAT 08/11/2019 08/11/2019 Bon 12:01 AM 05:01:00 AM Sec [facility] METABOLIC METABOLIC STAT 08/11/2019 08/11/2019 Bon PANEL, PANEL, 12:01 AM 05:01:00 AM [facility] COMPREHENSIVE COMPREHENSIVE [facility] MAGNESIUM MAGNESIUM STAT 08/11/2019 08/11/2019 Bon 12:01 AM 05:01:00 AM Sec [facility] LITHIUM LITHIUM STAT 08/11/2019 08/11/2019 Francisco Javier n 12:01 AM 05:01:00 AM Sec [facility] LACTIC ACID LACTIC ACID STAT 08/11/2019 08/11/2019 Bon 12:01 AM 05:01:00 AM Sec [facility] BNP BNP STAT 08/11/2019 08/11/2019 Francisco Javier n 12:01 AM 05:01:00 AM Sec [facility] RT--OXYGEN RT--OXYGEN STAT 08/10/2019 08/11/2019 Bon CANNULA CANNULA 11:51 PM 04:51:27 AM [facility] EST EST [facility] EKG, 12 LEAD, EKG, 12 LEAD, STAT 08/10/2019 0 Bon INITIAL INITIAL 10:14 PM 03:14:27 AM [facility] EST EST [facility] XR SMALL BOWEL XR SMALL BOWEL Routine 08/02/2018 Morbid 019 Morbid Bon SERIES SERIES 11:01 AM obesity 04:01:14 PM obesity [facility] EST (HCC) EST (HCC) [facility] Morbid obesity (HCC) CBC WITH AUTOMATED CBC WITH STAT 07/12/2018 9 [facility] DIFF AUTOMATED DIFF 12:40 AM EST 05:40:00 AM [facility] TROPONIN I TROPONIN I STAT 07/12/2018 07/12/2018 [facility] 12:40 AM EST 05:40:00 AM [facility] METABOLIC PANEL, METABOLIC PANEL, STAT 07/12/2018 [facility] COMPREHENSIVE COMPREHENSIVE 12:40 AM EST 05:40:0 0 AM [facility] MAGNESIUM MAGNESIUM STAT 07/12/2018 07/12/2018 [facility] 12:40 AM EST 05:40:00 AM [facility] RT--OXYGEN CANNULA RT--OXYGEN STAT 07/12/2018 019 [facility] CANNULA 12:21 AM EST 05:21:15 AM [facility] Results ID Date Data Source [id number] 03/22/2020 09:00:00 AM EDT [facility] Name Value Range Interpretation Description Data Sup porting Code Source(s) Document(s ) SARS [facility] coronavirus 2 RNA This lab was ordered by [facility] and reported by [facility]. ID Date Data Source [id number] 03/19/2020 10:37:00 AM EDT [facility] Name Value Range Interpretation Description Data Sup porting Code Source(s) Document(s ) SARS [facility] coronavirus 2 RNA This lab was ordered by [facility] and reported by [facility]. ID Date Data Source [id number] 03/15/2020 10:30:00 AM EDT [facility] Name Value Range Interpretation Description Data Sup porting Code Source(s) Document(s ) SARS [facility] coronavirus 2 RNA This lab was ordered by [facility] and reported by [facility]. ID Date Data Source [id number] 03/12/2020 12:00:00 PM EDT [facility] Name Value Range Interpretation Description Data Sup porting Code Source(s) Document(s ) SARS [facility] coronavirus 2 RNA This lab was ordered by [facility] and reported by [facility]. ID Date Data Source [id number] 03/08/2020 10:18:00 AM EDT [facility] Name Value Range Interpretation Description Data Sup porting Code Source(s) Document(s ) SARS [facility] coronavirus 2 RNA This lab was ordered by [facility] and reported by [facility]. ID Date Data Source [id number] 03/04/2020 09:50:00 AM EDT [facility] Name Value Range Interpretation Description Data Sup porting Code Source(s) Document(s ) SARS [facility] coronavirus 2 RNA This lab was ordered by [facility] and reported by [facility]. ID Date Data Source [id number] 03/02/2020 12:15:00 PM EDT [facility] Name Value Range Interpretation Description Data Sup porting Code Source(s) Document(s ) SARS [facility] coronavirus 2 RNA This lab was ordered by [facility] and reported by [facility]. ID Date Data Source [id number] 02/27/2020 09:15:00 AM EDT [facility] Name Value Range Interpretation Description Data Sup porting Code Source(s) Document(s ) SARS [facility] coronavirus 2 RNA This lab was ordered by [facility] and reported by [facility]. ID Date Data Source [id number] 02/23/2020 11:40:00 AM EDT [facility] Name Value Range Interpretation Description Data Sup porting Code Source(s) Document(s ) SARS [facility] coronavirus 2 RNA This lab was ordered by [facility] and reported by [facility]. ID Date Data Source [id number] 02/19/2020 09:56:00 AM EDT [facility] Name Value Range Interpretation Description Data Sup porting Code Source(s) Document(s ) SARS [facility] coronavirus 2 RNA This lab was [facility] and reported by [facility]. ID Date Data Source [id number] 02/16/2020 08:40:00 AM EDT [facility] Name Value Range Interpretation Description Data Sup porting Code Source(s) Document(s ) SARS [facility] coronavirus 2 RNA [facility] and reported by [facility]. ID Date Data Source [id number] 02/13/2020 10:05:00 AM EDT [facility] Name Value Range Interpretation Description Data Sup porting Code Source(s) Document(s ) SARS [facility] coronavirus 2 RNA This lab was ordered by [facility] and reported by [facility]. ID Date Data Source [id number] 02/09/2020 10:25:00 AM EDT [facility] Name Value Range Interpretation Description Data Sup porting Code Source(s) Document(s ) SARS [facility] coronavirus 2 RNA This lab was ordered by [facility] and reported by [facility]. ID Date Data Source [id number] 01/25/2020 09:20:00 AM EDT [facility] Name Value Range Interpretation Description Data Sup porting Code Source(s) Document(s ) 2019 Novel [facility] Coronavirus RNA Interpretation Unspecified Specimen Qualitative CATA Probe Detection This lab was ordered by [facility] and reported by [facility]. ID Date Data Source [id number] 12/25/2019 05:54:30 PM EDT [facility] Name Value Range Interpretation Description Data Sup porting Code Source(s) Document(s ) Rouse 0.38 0.6-1.2 Below low normal [facility] [Moles/volu MMOL/L [facility]] in Hospital Serum or Plasma ID Date Data Source [id number] 12/23/2019 01:50:56 PM EDT [facility] Discharge SummaryPatient: Maxwell Mendieta Trimbl e Sex: male DOA: 12/05/2019Date of : 1970 A ge: 49 y.o. LOS: LOS: 3 daysAdmit Date: 12/05/2019Discharge Date: 12/08/2019 Admission Diagnoses: Encephalopathy acute [G93.40];Meq-kssc-gjokdew adversereactio n to medication [T88.7XXA];Odl-sfad-obvmsrt adverse reaction tomedication [T88.7XXA] Discharge Diagnoses: #1 [...] ICD-10-CM: T50.905AICD -9-CM: E947.9 12/05/2019 - Present Dee-hkbe-kxndkdf adverse reaction to med ication ICD-10-CM: T88.5JZPAEX-6-VW: 995.20 12/05/2019 - Present Bipolar disorder wit [...] E66.01ICD-9-CM: 278.01 07/19/2018 - Present Spells ICD-10-CM: [id number]-9-LI: IMO00 01 04/08/2016 - Present Seizure disorder [...] Supporting Document(s ) ID Date Data Source [id number] 12/09/2019 02:14:04 PM EDT [facility] referral made. Walker order faxed t o [facility] do NOT acc ept pts insurance.Faxed to Moriah at [facility] at FAX [phone]. She reports they ne ed to get authfor walker. Have instucted pt to buy own walker IF not authorized.He i s agreeable to buying walker if needs to.Care Management InterventionsPCP Verified by CM: YesTransition of Care Consult (CM Consult): Home HealthBon Incoming Media Home Car e: YesCurrent Support Network: Own Home, Lives with SpouseThe Patient and/or Prachi ent Pet Training Instructor was Provided with a Choice of Providerand Agrees with the Discharge Plan?: YesFreedom of Choice List was Provided with Basic Dialogue that Suppor ts thePatient's Individualized Plan of Care/Goals, Treatment Preferences and Sh aresthe Quality Data Associated with the Providers?: YesVeteran Resource Informat ion Provided?: RefusedDischarge LocationDischarge Placement: Home with [facility](ACCEPTED BY [facility])Pt is discharged , picking him up. reports she has phone number tomake pt a follow up psych appt. [facility] to visit. will buy walker if not able to get thru [facility].Post dc note 12/08[facility] reports 50% copay - they lef t message on 's phone.I also, left a message with my call back number for any questions. hadreported to me she planned on buying a walker and would ret urn if insurance paidfor one. Name Value Range Interpretation Code Description Data Melani rce(s) Supporting Document(s ) ID Date Data Source [id number] 12/08/2019 03:06:17 PM EDT [facility] I have reviewed discharge instructions w ith [...] Supporting Document(s ) ID Date Data Source [id number] 12/08/2019 03:02:56 PM EDT [facility] Per your note, pt with acute encephalopa thy and toxic Serum Rouse level.Please specify the type of encephalopathy in yo ur progress notes: Toxic encephalopathy due to lithium Metabolic encephalopathy due to Other cause (please specify) Clinically unable to determine UnknownPLEASE DOCUM ENT ANY ADDITIONAL DIAGNOSES AND/OR SPECIFICITY IN THE PROGRESSNOTES AND/OR DISCHARGE SUMMARY. Name Value Range Interpretation Code Description Data Melani rce(s) Supporting Document(s ) ID Date Data Source [id number] 12/08/2019 02:40:45 PM EDT [facility] Problem: SuicideGoal: *STG: Remains safe in hospital12/08/2019 [...] Ru Mosher: Progressing Towards GoalGoal: *LTG: Identifies [employer]12/08/2019 1440 by Ru Mosher: Resolved/Met12/08/20191438 by Ru [...] Fall R isk and appropriate interventions in [facility].12/08/2019 1440 by Divya Mosher yOutcome: Resolved/MetNote: Fall [...] Harsh Scale and appropriate interventions in [facility] t.12/08/2019 1440 by Ru Mosher: Resolved/MetNote: [...] Resolved/Met12/08/2019 1439 by Ru Mosher: Progressing T owkyler GoalProblem: Fluid Volume [...] Supporting Document(s ) ID Date Data Source [id number] 12/08/2019 02:40:17 PM EDT [facility] Problem: SuicideGoal: *STG: Remains safe in hospitalOutcome: [...] Fall R isk and appropriate interventions in [facility].Outcome: Progressing Toward s GoalNote: Fall Risk Interventions:Mobility [...] Scale and appropriate interventions in [facility].Outcome: P rogressing Towards GoalNote: Pressure Injury Interventions:Sensory [...] Supporting Document(s ) ID Date Data Source [id number] 12/08/2019 01:18:54 PM EDT [facility] Daily Progress NoteAdmit Date: Hospital day: .tdSubjective:Psycgm Neuro,and PT assessments reviewed. Patie nt qualifies for discharge. Wifecalled, will bring in clothes. New medical regimen di scussed with the . Willneed Rouse level later this week.Current Facility-Adminis tered MedicationsMedication [...] past 8 hrs: BP Temp Pulse Resp FoG87912/07 0816 - - - - 96 %12/08/19 [...] initial encounter (12/05/2019)Active Problems: Encephalopathy acute (12/05/2019) Aps-hsix-rxocrcu adve rse reaction to medication (12/05/2019)Plan: day of discharge. Name Value Range Interpretation Code Description Data Melani rce(s) Supporting Document(s ) ID Date Data Source [id number] 12/08/2019 12:09:30 PM EDT [facility] Problem: Mobility Impaired (Adult and Pe diatric)Goal: [...] y.o. male)Date: 12/08/2019Primary Diagnosis: E ncephalopathy acute [G93.40]Gky-gpwh-uvbmeof adverse reaction to medication [T88.7XXA ]Gqa-bogs-mfubiul adverse reaction to medication [T88.7XXA]Precautions: Fall ASSESSMENT [...] morbidi ty or mortality cardiac cath at [facility] approx 6-8 months ago Other unknown [...] NoneCritical Beh avior:Neurologic State: AlertOrientation Level: Oriented J0Agzfqzwst: Appropriate for age attention/concentration;Follows commandsSafety/Judgement: Decreased awar [...] Supporting Document(s ) ID Date Data Source [id number] 12/08/2019 11:48:26 AM EDT [facility] Name Value Range Interpretation Description Data Sup porting Code Source(s) Document(s ) Glucose 132 MG/DL 65-110 Above high normal [facility] [Mass/volume] [facility] in Blood by [facility] Automated test strip ID Date Data Source [id number] 12/08/2019 10:35:45 AM EDT [facility] S/O Patient has shown improvement. He re ports that medications are helping him.He denies any side effectsHe denies any cecilia cidal thoughtsHe reports that he sees a psychiatrist [facility] [place] [facility] on [facility] 300 mg bid Rouse level in two days Will increase Zyprexa 5 mg Will follow up as requested Name Value Range Interpretation Code Description Data [facility] rce(s) Supporting Document(s ) ID Date Data Source [id number] 12/08/2019 07:28:52 AM EDT [facility] Bedside and Verbal shift change report cristi bolanos to SUSI Hurley (oncoming nurse) Annalise DE LEON RN (offgoing nurse). Repor t included the followinginformation SBAR, Kardex, MAR and Recent Results. Name Value Range Interpretation Code Description Data Melani rce(s) Supporting Document(s ) ID Date Data Source [id number] 12/07/2019 08:26:02 PM EDT [facility] Problem: Falls - Risk ofGoal: *Absence o [...] Name Value Range Interpretation Code Description Data [facility] rce(s) Supporting Document(s ) ID Date Data Source [id number] 12/07/2019 07:05:28 PM EDT [facility] Verbal shift change report given to Chandrakant Cox RN (oncoming nurse) by Steven Villalobos RN (offgoing nurse). Report inc luded the following information SBAR, Kardex,Intake/Output, MAR, Recent Result s and Cardiac Rhythm on telemetry. Name Value Range Interpretation Code Description Data [facility] rce(s) Supporting Document(s ) ID Date Data Source [id number] 12/07/2019 01:30:56 PM EDT [facility] - [facility] Trent Jacob MD[address] [place] [address] [phone].Ludia Progress NotePatient: Maxwell Bray Sex: male DOA: [...] (LOVENOX) injection 40 mg 40 mg SubCUTAneous Y45ZAvdgrdiuf:Visit VitalsBP 153/85 (BP 1 Location: Left arm, BP Prachi ent Position: At rest)Pulse 96Temp 98.7 F (37.1 C)Resp 20Ht 5' 5.75" (1.67 m)Wt 3 01 lb 1.6 oz (136.6 kg)SpO2 96%BMI 48.97 kg/m Body mass index is 48.97 kg/m .Patient V itals for the past 24 hrs: Temp Pulse Resp BP BjI357/ 1249 - 96 - 153/85 - 0 [...] shoulder M79.2 Seizure disorder (HCC) G40.909 Spells [id number] Severe obesity (HCC) E66.01 Depression F32.9 Anxiety F41.9 Bipolar disorder (HCC) F31.9 Depressive disorder F32.9 Status post g astric bypass for obesity Z98.84 Morbid obesity (HCC) E66.01 Mixed anxiety and depressive disorder F41.8 Vitamin D deficiency E55.9 Bipolar disorder with severe depression (HCC) F31.4 Encephalopathy acute G93.40 Adverse drug reaction, ini tial encounter T50.905A Jfx-uafr-mnpcsen adverse reaction to medication T88.7XXA 49 year [...] Supporting Document(s ) ID Date Data Source [id number] 12/07/2019 01:02:36 PM EDT [facility] Pt seen and discussed with Dr Canas .Pt is tearful flat and denies any suicidal thoughts , has been depressed withlithiu m on hold , No Vraylar and he is unable to get his ECT at [facility] And no w will be with [facility] with Dr Womack his lithium level is un therape utic range I will start on lithium , add 2.5mg of zyprexa and lower his klonopin And increase his elavil to 200 mg HSWill get pt followed up with Psychiatry Name Value Range Interpretation Code Description Data Melani rce(s) Supporting Document(s ) ID Date Data Source [id number] 12/07/2019 12:52:32 PM EDT [facility] Problem: Fluid Volume - Risk of, Imbalan cedGoal: *Balanced intake and outputOutcome: Progressing Towards GoalProblem: Patient Education: Go to Patient Education ActivityGoal: Patient/Family EducationOu tcome: Progressing Towards Goal Name Value Range Interpretation Code Description Data Melani rce(s) Supporting Document(s ) ID Date Data Source [id number] 12/07/2019 12:45:20 PM EDT [facility] Problem: Falls - Risk ofGoal: *Absence o [...] Supporting Document(s ) ID Date Data Source [id number] 12/07/2019 12:24:47 PM EDT [facility] Daily Progress NoteAdmit Date: Hospital day: [...] injection 40 mg 40 mg SubCUTA neous R19MMqjzbjhfp:Patient Vitals for the past 8 hrs: BP Temp Pulse Resp YkC09812/06 0956 147/86 98.7 F (37.1 C) 95 [...] initial encounter (12/05/2019)Active Problems: Encephalopathy acute (12/05/2019) Hoa-eknx-ijhlezz adve rse reaction to medication (12/05/2019)Plan:To increase activity, diet,klonopin. Start Losartan Name Value Range Interpretation Code Description Data Melani rce(s) Supporting Document(s ) ID Date Data Source [id number] 12/07/2019 10:13:28 AM EDT [facility] LTM EEG supervisor feed house DC'd per Dr. Jacob. Name Value Range Interpretation Code Description Data Melani rce(s) Supporting Document(s ) ID Date Data Source [id number] 12/07/2019 10:08:27 AM EDT [facility] [place], [place] [address]CTAOKIO: MAXWELL BRAYMRN: [id number]: [id number]#: [id number] DATE: 12/05/2019LONG TERM MONITORING VIDEO HIP HOP DANCE INSTRUCTOR: Riky Rodriguez HISTORY: The patient is a [...] montages. Digital analysis was performed employing an [employer] neuralnetwork program with parameterization and statistical analysi [...] seen, that attenuates with eye opening.There was llam-rw-hmbvclxj gener alized background slowing.There was no clear focal slowing.ACTIVATION TECHNIQUES: Ph otic stimulation and hyperventilation were notperformed.SLEEP: During drowsiness, there is mild attenuation and slowing of thebackground rhythm. There was normal sleep seen including symmetric vertexwaves, sleep spindles, and K-complexes.OTHER AC TIVITY: There were no clear epileptiform discharges and no seizures orclinical ev ents recorded.DIGITAL ANALYSIS: Variable spectral pattern without significant lef n-ew-ffszlhwseefwwymb. Spikes were artifact in nature.DECEMBER 06 DAILY [...] the awake and asleep states due to cczc-tl-elexgste diffuse cerebraldysfunc tion that improves to mild over the course of the recording. TRENT JACOB, ELIZABETHD: #12/06/2019 10:21:35/SS /v_hsisk_i/v_hsmpy_pJob #: [id number] / [id number] Name Value Range Interpretation Code Description Data Melani rce(s) Supporting Document(s ) ID Date Data Source [id number] 12/07/2019 07:45:20 AM EDT [facility] Bedside and Verbal shift change report cristi Dove RN (3Loria) (oncomingnurse) by Vy Green RN (offgoing nurse). Report included the following information SBAR, Kardex, MARand Recent Results. Name Value Range Interpretation Code Description Data Melani rce(s) Supporting Document(s ) ID Date Data Source [id number] 12/07/2019 07:22:41 AM EDT [facility] All leads and head wrapping intact. Day 2 LTM complete. Awaiting instructions tocontinue for day 3 or DC. Name Value Range Interpretation Code Description Data Melani rce(s) Supporting Document(s ) ID Date Data Source [id number] 12/07/2019 05:19:11 AM EDT [facility] Name Value Range Interpretation Description Data Sup porting Code Source(s) Document(s ) Sodium 138 136-145 [facility] [Moles/volume] mmol/L [facility] in Serum or Hospital Plasma Potassium 3.5 3.5-5.1 [facility] [Moles/volume] mmol/L [facility] in Serum or Hospital Plasma Chloride 106 98-107 [facility] [Moles/volume] mmol/L [facility] in Serum or Hospital Plasma Carbon 27 21-32 [facility] dioxide, total mmol/L [facility] [Moles/volume] Hospital in Serum or Plasma Anion gap in 10 10-20 [facility] Serum or mmol/L [facility] Plasma Hospital Glucose 140 74-106 Above high normal [facility] [Mass/volume] mg/dL [facility] in Serum or Hospital Plasma Urea nitrogen 19 mg/dL 7-18 Above high normal [facility] [Mass/volume] [facility] in Serum or Hospital Plasma Creatinine 0.94 0.70-1.3 [facility] [Mass/volume] mg/dL 0 [facility] in Serum or Hospital Plasma Glomerular >60 [facility] filtration [facility] rate/1.73 sq M Hospital predicted among blacks [Volume Rate/Area] in Serum or Plasma by Creatinine-bas ed formula (MDRD) Glomerular >60 [facility] - Good filtration Mu-Ism rate/1.73 sq M Hospital predicted among non-blacks [Volume Rate/Area] in Serum or Plasma by Creatinine-bas ed formula (MDRD) (NOTE)Estimated GFR is calculated using the Modification of Diet in RenalDisease (MDRD) Study equation, reported for both Americans(GFRAA) and non- Americans (GFRNA), and normalized to 1.7 3f4zoeu surface area. The physician must decide which value applies tothe patient . The MDRD study equation should only be used inindividuals age 18 or older. It has no t been validated for thefollowing: women, patients with serious comorbid co nditions,or on certain medications, or persons with extremes of body size,muscl e mass, or nutritional status. Calcium [Mass/volume] in Serum 9.1 mg/dL 8.5-10.1 [facility] or [facility] Hospital ID Date Data Source [id number] 12/06/2019 08:12:24 PM EDT [facility] Bedside and Verbal shift change report g ivhali to Rach UGALDE (oncoming nurse) Estephania Wakefield RN (offgoing nurse). Report included the followinginformation SBAR, Kardex, MAR, Recent Results, and Med Rec Status. Name Value Range Interpretation Code Description Data Melani rce(s) Supporting Document(s ) ID Date Data Source [id number] 12/06/2019 04:57:12 PM EDT [facility] Daily Progress NoteAdmit Date: Hospital day: [...] (LOVENOX) injection 40 mg 40 mg SubCUTAneous Y05WHeoulhski:Patient Vi tals for the past 8 hrs: BP Temp Pulse Resp PyF20212/06/19 1547 (!) 164/100 99.6 F (3 7.6 [...] Time: 12/06/19 4:25 AMResult Value Ref Range Rouse level 1.09 0.6 - 1.2 MMOL/L Xr [...] initial encounter (12/05/2019)Active Problems: Encephalopathy acute (12/05/2019) Dbf-koeq-wedyuai adve rse reaction to medication (12/05/2019)Plan:To reduce iv fluids, repeat lasix Name Value Range Interpretation Code Description Data Melani rce(s) Supporting Document(s ) ID Date Data Source [id number] 12/06/2019 04:14:48 PM EDT [facility] - [facility] Psychiatry Consult NoteSubjective:Landen t: Maxwell Bray [...] of morbidity or mortality cardiac cath at [facility] approx 6-8 months ago Other unknown and unspecified cause of morbidity or mortal ity concussions Other unknown and unspecified cause of morbidity or mortal ity "periodic disorientation" Other unknown and unspecified cause of morbidity or mo rtality anxiety Psychiatric disorder anxiety, depressionPsychiatric History: Patient reported he was receiving care in outpatient from [facility] psychiatrist t did not discuss details.Substance Use History:Social HistorySubstance and Sexu al ActivityAlcohol Use No Frequency: Never Drinks per session: 1 or 2 Binge freque ncy: NeverSocial HistorySubstance and Sexual ActivityDrug Use NoObjective:Vitals/Phys ical Assessment:Patient Vitals for the past 8 hrs: BP Temp Pulse Resp RwZ00412/06/19 081 3 (!) 153/94 100.4 F (38 [...] encounter (12/05/2019)A ctive Problems: Encephalopathy acute (12/05/2019) Pwv-ehai-euyxbwa adverse re action to medication (12/05/2019)Plan:No current [...] Supporting Document(s ) ID Date Data Source [id number] 12/06/2019 01:18:16 PM EDT [facility] Trent Jacob MD[address], [address] [place] [address] [phone] Progress NotePatient: Maxwell Bray Sex: male DOA: 12/05/2019Date of : 1970 Age: 49 y.o. LOS: LOS: 1 daySubjective:Awake, alert, tremulous, no current complaintsEEG w/ mild to mod gen slowREVIEW OF SYSTEMS: NO CP, SOB, N,V,D, F,CCurrent Facility-Administered MedicationsMedication Dose Route Frequen cy 0.9% sodium chloride infusion 125 mL/hr IntraVENous CONTINUOUS enoxaparin (LOVE NOX) injection 40 mg 40 mg SubCUTAneous V45UWwnklejsb:Visit VitalsBP (!) 153/94 (BP 1 Location: Left arm, BP Patient Position: At rest)Pulse 100Temp 100.4 F (38 C)Resp 18Ht 5' 5.75" (1.67 m)Wt 300 lb (136.1 kg)SpO2 96%BMI 48.79 kg/m Body mass index is 48.79 kg/m .Patient Vitals for the past 24 hrs: Temp Pulse Resp BP MwP94712/06/19 0813 100.4 F (38 C) 100 18 [...] past 24 hours were reviewed both during [facility] daily workflow process and at the [...] Time: 12/06/19 4:25 AMResult Value Ref Range Rouse level 1.09 0.6 - 1.2 MMOL/LCT Results [...] shoulder M79.2 Seizure disorder (HCC) G40.909 Spells [id number] Severe ob esity ([facility]) E66.01 Depression F32.9 Anxiety F41.9 Bipolar disorder (HCC) F31.9 Dep ressive disorder F32.9 Status post gastric bypass for obesity Z98.84 Morbid obesit y ([facility]) E66.01 Mixed anxiety and depressive disorder F41.8 Vitamin D deficiency E55 .9 Bipolar disorder with severe depression (HCC) F31.4 Encephalopathy acute G93.40 Adverse drug reaction, initial encounter T50.905A Law-jjdp-gxvosab adverse react ion to medication T88.7XXA49 year [...] Supporting Document(s ) ID Date Data Source [id number] 12/06/2019 11:43:34 AM EDT [facility] LTM study day 1 complete. All leads and head wrapping intact. Day 2 LTM studycommenced and LIVE via WIFI on [facility]. 06/28 Name Value Range Interpretation Code Description Data Melani rce(s) Supporting Document(s ) ID Date Data Source [id number] 12/06/2019 10:48:32 AM EDT [facility] Care Management InterventionsPCP Verifie d by CM: YesCurrent Support Network: Own Home, Lives with SpouseThe Patient and/o r Patient Pet Training Instructor was Provided with a Choice of Providerand Agrees with the Betty rose Plan?: YesFreedom of Choice List was Provided with Basic Dialogue that Suppor ts thePatient's Individualized Plan of Care/Goals, Treatment Preferences and Sh aresthe Quality Data Associated with the Providers?: YesVeteran Resource Informat ion Provided?: RefusedDischarge LocationDischarge Placement: HomeCASE YUE GERDA PSYCHOSOCIAL ASSESSMENTArieian Anam Bray Admission Marlon e: 12/05/2019MRN: [id number] of : 1970Current date: 12/06/2019 DISCHARGE PLAN: Patient is a 49 year old male admitted to [facility]. CM attempted toreach hi m via [...] services. Open for SNF. Family would like [facility]. CM CCLINKD. CM willfollow.Patient Information:Patients Preferred Name: [...] NoPCP: Ritika Canas MDAdmitting Provider: Ritika lobo MDSPOTSYLVANIA REG[facility] INCHOMECARE SR. PRICING ANALYST: N/APayor: P ayor: [facility] HEALTH PLAN / Plan: [facility] HEALTH PLAN /Product Type: HMO /Secondary Payor : @SECINSGROUPNAME@Encephalopathy acute [G93.40]Zqm-zeqr-dblitjq adverse reactio n to medication [T88.7XXA]Oli-eagn-uwuvwsu adverse reaction to medication [T88.7XXA ]Patient Active Problem ListDiagnosis Code H/O gastric bypass Z98.84 Insomnia G47. 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 Seizure disorder (HCC) G40.909 Spells I [id number] Severe obesity (HCC) E66.01 Depression F32.9 Anxiety F41.9 Bipolar disorder (HCC) F31.9 Depressive disorder F32.9 Status post gastric bypass for ob esity Z98.84 Morbid obesity (HCC) E66.01 Mixed anxiety and depressive disorder F4 1.8 Vitamin D deficiency E55.9 Bipolar disorder with severe depression (HCC) F3 1.4 Encephalopathy acute G93.40 Adverse drug reaction, initial encounter T50.905 A Zvv-uucu-xrnfbql adverse reaction to medication T88.7XXASocial HistorySubstan ce [...] Supporting Document(s ) ID Date Data Source [id number] 12/06/2019 07:40:06 AM EDT [facility] 1937: Patient found in bed resting quiet [...] Supporting Document(s ) ID Date Data Source [id number] 12/06/2019 05:07:27 AM EDT [facility] Name Value Range Interpretation Description Data Sup porting Code Source(s) Document(s ) Rouse 1.09 0.6-1.2 [facility] - Good [Moles/volu MMOL/L Mu-Ism me] in Hospital Serum or Plasma ID Date Data Source [id number] 12/05/2019 07:59:09 PM EDT [facility] Name Value Range Interpretation Description Data Sup porting Code Source(s) Document(s ) Ammonia 16 UMOL/L 11-32 [facility] - Good [Moles/volum Mu-Ism e] in Plasma Hospital ID Date Data Source [id number] 12/05/2019 07:56:38 PM EDT [facility] Name Value Range Interpretation Description Data Sup porting Code Source(s) Document(s ) Lactate 0.9 0.4-2.0 [facility] - Good [Moles/volu MMOL/L Mu-Ism me] in Hospital Serum or Plasma ID Date Data Source [id number] 12/05/2019 06:42:57 PM EDT [facility] 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 Day 1 LTM comm enced and LIVE via WIFI on [facility] 06/28 Name Value Range Interpretation Code Description Data Melani rce(s) Supporting Document(s ) ID Date Data Source [id number] 12/05/2019 06:07:34 PM EDT [facility] - [facility] [id number] [facility] 4T OR TH[facility]ED[facility] [address] [place] [address] [phone] Maxwell Bray (Male) [id number] I 3 ED Dispo:ADMIT Chief Complaint: Fall, Fatigue Diagnosis: Altered mental status, unspecified altered mental status type [] Adverse drug reaction, initial encounter [] Encephalopathy acute [] Nkx-pbgq-uldmnji adverse effect of medication, subsequent encounter [] Bipolar disorder with severe depression (HCC) [] H/O gastric bypass [] Curre nt Providers: Attending: Patsy Manzo; Kristy Otero; Cristi Canas Consulting Provider: Jose Centeno; Cristi Canas; Javier Khan; Cristi Frazier Primary Nurse: BAILEY GambleN: [id number] [employer] [phone] - [facility] MrnMRN: [id number] [employer] [phone] - [facility] Age SexDOB 1970 AGE 49 SEX Male Primary Care Provider: Ritika Canas MD Phone: Allergies: (No Known Allergies)Date Reviewed: 12/05/2019Reviewed by: Ritika Canas MD - Review CompleteED Provider Notes: All notesHNO ID: [id number]: Julio Manzo MDService: EMERGENCYAuthor Type: Physici anFiled: [...] of morbidity or mortality cardiac cath at [facility] approx 6-8 months ag o Other [...] week Gets together: Once a week Attends buddhism service: More than 4 times per year [...] Calculation (Bez et) 515 ms Calculated P [place] 40 degrees Calculated R [place] 41 degrees Calculated T [place] 147 degrees Diagnosis Sinus tachycardiaProbable left atrial [...] Time: 12/05/19 12:38 PMResult Value Ref Range Rouse level 1 .53 (HH) 0.6 - 1.2 MMOL/LLACTIC ACID Collection Time: 12/05/19 12:40 PMResult Value Ref Range Lactic acid 1.1 0.4 - 2.0 MMOL/LEKG:Sinus tachycardia at 100 BPM, normal axis, nothing acute.Interpreted by Julio Manzo MD11:20 AM classroom monitor reading shows sinus tachycardia at 100 BPM.Interpreted [...] mental status, unspecified altered mental status type R41.40318.97Patient c ondition at time of disposition: StableI [...] thediagnostic studies, unless otherwise noted.+ED Orde rs 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 [#[id number]] Priority: STAT Class: Hospital Performe d Standing Order Information Remaining Occurrences:0/1 Interval:Continuous Last release d:12/05/2019 Released orders: SunDec 05, 2019 11:20 AM by: JULIO MANZO Type: -> Bedside N [id number] PULSE OXIMETRY CONTINUOUS [#[id number]] Priority: STAT Class: Hospital Performe d Standing Order Information Remaining Occurrences:0/1 Interval:CONTINUOUS Last release d:12/05/2019 Released orders: SunDec 05, 2019 11:20 AM by: JULIO MANZO [id number] PULSE OXIMETRY SPOT CHECK [#[id number]] Priority: STAT Class: Hospital Performed Standing Order Inf ormation Remaining Occurrences:0/1 Interval:ONE TIME Last released:12/05/2019 Release d orders: SunDec 05, 2019 11:20 AM by: JULIO MANZO [id number] OBTAIN OLD EKG [ #[id number]] Priority: Routine Class: Hospital Performed Standing Order Information Remainin g Occurrences:0/1 Interval:ONE TIME Last released:12/05/2019 Released orders : SunDec 05, 2019 11:20 AM by: JULIO [id number] AGRICULTURAL ENG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 [# [id number]] Priority: STAT Class: Hospital Performed Type: -> Bedside Released on: 12/05/2019 11:20 AM [id number] PULSE OXIMETRY CONTINUOUS [#[id number]] Priority: STAT Class: Hospital Performe d Released on: 12/05/2019 11:20 AM [id number] PULSE OXIMETRY SPOT CHECK [#[id number]] Priori ty: STAT Class: Hospital Performed Released on: 12/05/2019 11:20 AM [id number] OBTAIN OLD EKG [#[id number]] Priority: STAT Class: Hospital Performed Released on: 12/05/2019 11:20 AM [id number] VITAL SIGNS PER UNIT ROUTINE [#[id number]] Priority: STAT Class: Hospital Performed Stand ing Order Information Remaining Occurrences:0/1 Interval:CONTINUOUS Last released :12/05/2019 Released orders: SunDec 05, 2019 2:41 PM by: RITIKA CANAS Comment:More frequent ly if Indicated. [id number] BEDREST, COMPLETE [#[id number]] Priority: STAT Class: H ospital Performed Standing Order Information Remaining Occurrences:0/1 Interval:CONTIN UOUS Last released:12/05/2019 Released orders: SunDec 05, 2019 2:41 PM by: RITIKA CANAS [id number] NOTIFY PROVIDER: VITAL SIGNS CHANGES [#[id number]] Priority: STAT Class: Hospital Performe d Standing [...] Less than 120 ml in 4 hours [id number] APPLY/MAINTAIN SEQUENTIAL COMPRESSIO* [# [id number]] Priority: STAT Class: Hospital Performed Standing Order Information Remaining Occurre nces:0/1 Interval:CONTINUOUS Last released:12/05/2019 Released orders: SunDec 05, 2019 2:41 PM by: RITIKA CANAS [id number] VITAL SIGNS PER UNIT ROUTINE [#[id number]] Priorit y: STAT Class: Hospital Performed Comment:More frequently if Indicated. Released on: 12/05/2019 2 :41 PM [id number] BEDREST, COMPLETE [#[id number]] Priority: STAT Class: Hospital Performe d Released on: 12/05/2019 2:41 PM [id number] NOTIFY PROVIDER: VITAL SIGNS CHANGES [#[id number]] Priority: STAT Class: Hospital Performed Temp -> [...] carmen rs Released on: 12/05/2019 2:41 PM [id number] APPLY/MAINTAIN SEQUENTIAL COMPRESSIO* [#[id number]] P riority: STAT Class: Hospital Performed Released on: 12/05/2019 2:41 PM [id number] RT--OXYGEN CANNULA [#[id number]] Priority: STAT Class: Hospital Performed Standing Order Information Remaining Occurrences:0/1 Interval:CONTINUOUS Last released:12/05/2019 Released o rders: SunDec 05, 2019 11:20 AM by: JULIO MANZO LPM -> 2 Indications for O2? -> CHEST PAIN [id number] RT--OXYGEN CANNULA [#[id number]] Priority: STAT Class: Hospital Performe d LPM -> 2 Indications for O2? -> CHEST PAIN Released on: 12/05/2019 11:20 AM [id number] DIET NPO [#[id number]] Canceled Priority: STAT Class: Hospital Performed Cancele d by RITIKA CANAS on SunDec 05, 2019 2:41 PM Reason: None Comment: Standing Order Information Remaining Occurrences:0/1 Interval:DIET EFFECTIVE NOW Last released:12/05/2019 Release d orders: SunDec 05, 2019 11:20 AM by: JULIO MANZO NPO options: -> With Meds [id number] DIET NPO [#[id number]] Canceled Priority: STAT Class: Hospital Performed Cancele d by RITIKA CANAS on SunDec 05, 2019 2:41 PM Reason: None Comment: NPO options: -> With Meds Released on: 12/05/2019 11:20 AM [id number] DIET NPO [#[id number]] Priority: S TAT Class: Hospital Performed Standing Order Information Remaining Occurrences:0/1 Inter haile:DIET EFFECTIVE NOW Last released:12/05/2019 Released orders: SunDec 05, 2019 2:41 PM by: RITIKA CANAS180 DIET NPO [#[id number]] Priority: STAT Class: H ospital Performed Released on: 12/05/2019 2:41 PM [id number] SALINE LOCK IV [#[id number]] Priority: STAT Class: Hospital Performed Standing Order Information Remaining Occurrences:0 /1 Interval:ONE TIME Last released:12/05/2019 Released orders: SunDec 05, 2019 11:20 AM by: JULIO MANZO IVT11 SALINE LOCK IV [#[id number]] Priority: STAT Cl ass: Hospital Performed Released on: 12/05/2019 11:20 AM [id number] METABOLIC PANEL, COMPREHENSIVE [# [id number]] Priority: STAT Class: ER Collect Standing Order Information Remaining Occurrences:0 /1 Interval:ONE TIME Last released:12/05/2019 Released orders: SunDec 05, 2019 11:20 AM by: JULIO MANZO [id number] CBC WITH AUTOMATED DIFF [#[id number]] Priority: STAT Cl ass: ER Collect Standing Order Information Remaining Occurrences:0/1 Interval:ONE TI ME Last released:12/05/2019 Released orders: SunDec 05, 2019 11:20 AM by: JULIO MANZO [id number] TROPONIN I [#[id number]] Priority: STAT Class: ER Collect Sta nding Order Information Remaining Occurrences:0/1 Interval:ONE TIME Last released:0 12/05/2019 Released orders: SunDec 05, 2019 11:20 AM by: JULIO MANZO [id number] MAGNESIUM [#[id number]] Priority: STAT Class: ER Collect Standing Order Information Remaining Occurrences:0/1 Interval:ONE TIME Last released:12/05/2019 Released orders : SunDec 05, 2019 11:20 AM by: JULIO MANZO [id number] LACTIC ACID [#[id number]] Priority: STAT Class: ER Collect Standing Order Information Remaining Occurrences:0/2 Interval:NOW THEN EVERY 4 HOURS Last released:12/05/2019 Released orders: SunDec 05, 2019 12:06 PM by: JULIO MANZO SunDec 05, 2019 11:20 AM by: JULIO MANZO [id number] PROTHROMBIN TIME + INR [#[id number]] Priority: STAT Class: ER Collect Standing Order Information Remain ing Occurrences:0/1 Interval:ONE TIME Last released:12/05/2019 Released orders : SunDec 05, 2019 11:20 AM by: JULIO MANZO [id number] URINALYSIS W/ RFLX MICROSCOPIC [# [id number]] Priority: STAT Class: ER Collect Standing Order Information Remaining Occurrences:0 /1 Interval:ONE TIME Last released:12/05/2019 Released orders: SunDec 05, 2019 11:20 AM by: JULIO MANZO [id number] METABOLIC PANEL, COMPREHENSIVE [#[id number]] Priority: STAT Cl ass: ER Collect Specimen Source: Plasma Specimen Collected: 12/05/2019 12:38 PM Resulting Agency: [facility] Test ID: MPL Released on: 12/05/2019 11:20 AM [id number] CBC WITH A UTOMATED DIFF [#[id number]] Priority: STAT Class: ER Collect Specimen Source: Whole Blood S pecimen Collected: 12/05/2019 12:38 PM Resulting Agency: [facility] Test ID: CBCXA Released on: 12/05/2019 11:20 AM [id number] TROPONIN I [#[id number]] Prior ity: STAT Class: ER Collect Specimen Source: Plasma Specimen Collected: 12/05/2019 12:38 PM Resultin g Agency: [facility] Test ID: TROIP Released on: 12/05/2019 11:20 AM [id number] 2 MAGNESIUM [#[id number]] Priority: STAT Class: ER Collect Specimen Source : Plasma Specimen Collected: 12/05/2019 12:38 PM Resulting Agency: [facility] Test ID: MGPL Released on: 12/05/2019 11:20 AM [id number] LACTIC ACID [#[id number]] P riority: STAT Class: ER Collect Specimen Source: Plasma Specimen Collected: 12/05/2019 12:40 PM Resultin g Agency: [facility] Test ID: LAC Released on: 12/05/2019 11:20 AM [id number] PROTHR OMBIN TIME + INR [#[id number]] Priority: STAT Class: ER Collect Specimen Source: Plasma Spe cimen Collected: 12/05/2019 12:38 PM Resulting Agency: [facility] Test ID: APTHR R eleased on: 12/05/2019 11:20 AM [id number] URINALYSIS W/ RFLX MICROSCOPIC [#[id number]] Prior ity: STAT Class: ER Collect Specimen Source: Urine Specimen Collected: 12/05/2019 2:45 PM Magan colin Agency: [facility] Test ID: UA Released on: 12/05/2019 11:20 AM [id number] CAMILAU M [#[id number]] Priority: STAT Class: ER Collect Standing Order Information Remaining Occurrences:0/1 Interval:ONE TIME Last released:12/05/2019 Released orders : SunDec 05, 2019 11:40 AM by: MECHELLE GAMBLE [id number] LITHIUM [# [id number]] Priority: STAT Class: ER Collect Specimen Source: Serum Specimen Collected: 12/05/2019 12 :38 PM Resulting Agency: [facility] Test ID: LI Released on: 12/05/2019 11:40 AM [id number] LITHIUM [#[id number]] Canceled Priority: STAT Class: ER Collect Canceled by TENA, LAB IN [facility] on SunDec 05, 2019 11:42 AM Reason: Other Comment: Duplicate Standing Order Information Remaining Occurrences:0/1 Interval:ONE TIME Last released:0 12/05/2019 Released orders: SunDec 05, 2019 11:41 AM by: JULIO MANZO [id number] LITHIUM [#[id number]] Canceled Priority: STAT Class: ER Collect Specimen Collected: 12/05/2019 11:45 AM Resulting Agency: [facility] Test ID: LI Canceled by TENA, [facility] on SunDec 05, 2019 11:42 AM Reason: Other Comment: Duplicate Rele ased on: 12/05/2019 11:41 AM [id number] LACTIC ACID [#[id number]] Priority: STAT Cl ass: ER Collect Resulting Agency: [facility] Test ID: LAC Released on: 12/05/2019 12:06 PM [id number] AMMONIA [#[id number]] Priority: Routine Class: ER Collect Specimen Source: Blood Standing Order Information Remaining Occurrences:0/1 Interval:ONE TI ME Last released:12/05/2019 Released orders: SunDec 05, 2019 3:19 PM by: Javier KHAN [id number] AMMONIA [#[id number]] Priority: STAT Class: ER Collect Spe cimen Source: Blood Resulting Agency: [facility] Test ID: NH3 Released on: 12/05/2019 3:19 PM [id number] BILIRUBIN, CONFIRM [#[id number]] Priority: Routine Class : ER Collect Resulting Agency: [facility] Test ID: ICTO Standing Order Informat ion Remaining Occurrences:0/1 Released orders: SunDec 05, 2019 2:45 PM by: Automatic B atch Process [id number] BILIRUBIN, CONFIRM [#[id number]] Priority: Routine Class : ER Collect Specimen Source: Miscellaneous sample Specimen Collected: 12/05/2019 2:45 PM Resultin g Agency: [facility] Test ID: ICTO Released on: 12/05/2019 2:45 PM [id number] EKG, 12 LEAD, INITIAL [#[id number]] Priority: STAT Class: Hospital Performed Stand ing Order Information Remaining Occurrences:0/1 Interval:ONE TIME Last released:0 12/05/2019 Released orders: SunDec 05, 2019 11:20 AM by: JULIO MANZO Reason for Exam: -> Chest Pain [id number] EKG, 12 LEAD, INITIAL [#[id number]] Priority: STAT Class: H ospital Performed Resulting Agency: [facility] Test ID: [id number] Reason for Exam: -> Chest Pain Releas ed on: 12/05/2019 11:20 AM [id number] XR CHEST PORT [#[id number]] Priority: STAT Clas s: Hospital Performed Standing Order Information Remaining Occurrences:0/1 Interval:ONE TI ME Last released:12/05/2019 Released orders: SunDec 05, 2019 11:20 AM by: JULIO MANZO Reason for Exam -> Chest Pain [id number] CT HEAD WO CONT [#[id number]] Priority: S TAT Class: Hospital Performed Standing Order Information Remaining Occurrences:0/1 Inter haile:ONE TIME Last released:12/05/2019 Released orders: SunDec 05, 2019 11:20 AM by: JULIO MANZO Reason for Exam -> ams [id number] XR PELV AP ONLY [#[id number]] Priority: S TAT Class: Hospital Performed Standing Order Information Remaining Occurrences:0/1 Inter haile:ONE TIME Last released:12/05/2019 Released orders: SunDec 05, 2019 11:20 AM by: JULIO MANZO Reason for Exam -> fall [id number] XR CHEST PORT [#[id number]] Priority: STAT Class: Hospital Performed Specimen Collected: 12/05/2019 12:21 PM Resulting Agency: [facility] Test ID: [id number] Reason for Exam -> Chest Pain Released on: 12/05/2019 11:[id number] HEAD WO CONT [#[id number]] Priority: STAT Class: Hospital Performed Specimen Collected : 12/05/2019 12:43 PM Resulting Agency: [facility] Test ID: [id number] Reason for Exam -> ams R eleased on: 12/05/2019 11:20 AM [id number] XR PELV AP ONLY [#[id number]] Priority: STAT Class: Hospital Performed Specimen Collected: 12/05/2019 12:23 PM Resulting Agency: [facility] Test ID : [id number] Reason for Exam -> fall Released on: 12/05/2019 11:20 AM [id number] MRI BRAIN WO CONT [#[id number]] Priority: STAT Class: Hospital Performed Standing Order Information Remaining Occurrences:0/1 Interval:ONE TIME Last released:12/05/2019 Released orders : SunDec 05, 2019 3:19 PM by: JOSE KHAN Reason for Exam -> ams [id number] MRI BRA IN WO CONT [#[id number]] Priority: STAT Class: Hospital Performed Specimen Collected : 12/05/2019 5:03 PM Resulting Agency: [facility] Test ID: [id number] Reason for Exam -> ams R eleased on: 12/05/2019 3:19 PM [id number] CULTURE, BLOOD [#[id number]] Priority: Routi ne Class: ER Collect Specimen Source: Blood Standing Order Information Remaining Occurrences:0 /1 Interval:ONE TIME Last released:12/05/2019 Released orders: SunDec 05, 2019 11:20 AM by: JULIO [id number] CULTURE, BLOOD [#[id number]] Priority: STAT Cl ass: ER Collect Specimen Source: Blood Standing Order Information Remaining Occurrences:0/1 I nterval:ONE TIME Last released:12/05/2019 Released orders: SunDec 05, 2019 11:20 AM by: JULIO MANZO [id number] CULTURE, BLOOD [#[id number]] Priority: STAT Class: E R Collect Specimen Source: Blood Specimen Collected: 12/05/2019 12:38 PM Resulting Agency: [facility] Test ID: HBCS Released on: 12/05/2019 11:20 AM [id number] CULTURE, BLOOD [#[id number]] Priority: STAT Class: ER Collect Specimen Source: Blood Specimen Collected: 12/04 12:30 PM Resulting Agency: [facility] Test ID: HBCS Released on: 12/05/2019 11:20 AM CEFTRIAXONE 1 GRAM IVPB MBP [#[id number]] Priority: STAT Class: Normal An tibiotic Indications -> Sepsis of Unknown Etiology SODIUM CHLORIDE 0.9 % IV [#[id number]] Priority: STAT Class: Normal SODIUM CHLORIDE 0.9 % IV [#[id number]] Priority : STAT Class: Normal ENOXAPARIN 40 MG/0.4 ML SUB-Q SYRINGE [#[id number]] Priority: STAT Class: N ormal ENOXAPARIN 40 MG/0.4 ML SUB-Q SYRINGE [#[id number]] Priority: STAT Class: Normal FUROSEMIDE 10 MG/ML IJ SOLN [#[id number]] Priority: STAT Class: Normal CON53 IP CONSULT TO PS YCHIATRY [#[id number]] Priority: STAT Class: Hospital Performed Standing Order Information Remaining Occurrences:0/1 Interval:ONE TIME Last released:12/05/2019 Released orders : SunDec 05, 2019 11:42 AM by: JULIO MANZO Reason for Consult: -> si Did you call or spea k to the consulting provider? -> No Consult To -> si CON53 IP CONSULT TO PSYCHIATRY [#[id number]] Priority: STAT Class: Hospital Performed Reason for Consult: -> si Did you call or spea k to the consulting provider? -> No Consult To -> si Released on: 12/05/2019 11:42 AM CON62 IP CON SULT TO INTERNAL MEDICINE [#[id number]] Priority: STAT Class: Hospital Performed Standing Order Inf ormation Remaining Occurrences:0/1 Interval:ONE TIME Last released:12/05/2019 Release d orders: SunDec 05, 2019 2:16 PM by: CARLA OTERO Reason for Consult: -> Altered mental st atDr. Corey helton to admit Did you call or speak to the consulting provider? -> Yes CON62 IP CONSULT TO INTERNAL MEDICINE [#[id number]] Priority: STAT Class: Hospital Performed Reason for Consu lt: -> Altered mental status, Dr. Canas to admit Did you call or speak to the consulting provider? -> Yes Released on: 12/05/2019 2:16 PM CON53 IP CONSULT TO PSYCHIATRY [#[id number]] Priority: STAT Class: Hospital Performed Standing Order Information Remaining Occurrences:0 /1 Interval:ONE TIME Last released:12/05/2019 Released orders: SunDec 05, 2019 2:41 PM by: RITIKA CANAS Reason for Consult: -> adverse med reaction Did you call or speak to t he consulting provider? -> No Consult To -> Dr Aguirre Schedule When? -> TODAY CON9 IP CONSULT TO N EUROLOGY [#[id number]] Priority: STAT Class: Hospital Performed Standing Order Information Remaining Occurrences:0/1 Interval:ONE TIME Last released:12/05/2019 Released orders : SunDec 05, 2019 2:41 PM by: RITIKA CANAS Reason for Consult: -> encephalopathy adverse drug reaction Did you call or speak to the consulting provider? -> No Consult To -> Dr Jacob Schedule When? -> TODAY CON53 IP CONSULT TO PSYCHIATRY [#[id number]] Priority: STAT Class: H ospital Performed Reason for Consult: -> adverse med reaction Did you call or speak to the consulting provider? -> No Consult To -> Dr Aguirre Schedule When? -> TODAY Released on: 12/05/2019 2:41 P M CON9 IP CONSULT TO NEUROLOGY [#[id number]] Priority: STAT Class: Hospital Performe d Reason for Consult: -> encephalopathy adverse drug reaction Did you call or speak to the consulting provider? -> No Consult To -> Dr Jacob Schedule When? -> TODAY Released on: 12/05/2019 2:41 P M [id number] INITIAL PHYSICIAN ORDER: OBSERVATION* [#[id number]] Priority: Routine Class: ADT Pend Trans milvia Standing Order Information Remaining Occurrences:0/1 Interval:ONE TIME Last release d:12/05/2019 Released orders: SunDec 05, 2019 2:00 PM by: LUZ ELENA GATES Patient Class: -> OBS ERVATION Admitting Diagnosis -> Encephalopathy acute Admitting Physician -> CARLA OTERO Attending Physician -> CARLA OTERO [id number] INITIAL PHYSICIAN ORDER: OBSERVATION* [#[id number]] Priority: Routine Class: ADT Pend Transfer Patient Class: -> OBSERVATION Admitting Diagnosis -> Encephalopathy acute Admitting Physician -> CARLA OTERO Attending Physician -> CARLA OTERO Released on: 12/05/2019 2:00 PM [id number] INITIAL PHYSICIAN ORDER: INPATIENT [#[id number]] Joan brayy: Routine Class: ADT Pend Transfer [...] o- n- ) Admitting Diagnosis - > Zfu-wrmf-vyszykp adverse reaction to medication Admitting Physician -> RITIKA CANAS Physician -> RITIKA CANAS Estimated Length of Stay -> 5-7 Midnights Discharge Plan: -> Other (Specify) [id number] INITIAL PHYSICIAN ORDER: INPATIENT [#[id number]] Priority: Routine Class: ADT Pend Tr ansfer [...] i- o- n- ) Admitting Diagnosis -> Kvg-banj-ihvmdja adverse reaction to medication Admitting Physician -> RITIKA CANAS Attending Physician -> MARY CANAS Estimated Length of Stay -> 5-7 Midnights Discharge Plan: -> Other (Specify) [id number] INITI AL PHYSICIAN ORDER: INPATIENT [#[id number]] Priority: Routine Class: ADT Pend Transfer Status: [...] i- o- n- ) Admitting Diagnosis -> Yyd-sscy-vpqwxvx adverse reaction to medication Admitting Physician -> RITIKA CANAS Attending Physician -> MARY CANAS Estimated Length of Stay -> 5-7 Midnights Discharge Plan: -> Other (Specify) Released on: 12/05/2019 2:41 PM [id number] INITIAL PHYSICIAN ORDER: INPATIENT [#[id number]] Priority: Routine Class : ADT Pend Transfer [...] o- n- ) Adm itting Diagnosis -> Sho-ytry-raokkee adverse reaction to medication Admitting Physician -> RITIKA CANAS Attending Physician -> RITIKA CANAS Estimated Length of Stay -> 5-7 Midnights Discharge Plan: -> Other (Specify) Released on: 12/05/2019 2:41 PM COD2 FULL CODE [#[id number]] Priority: STAT Class: Hospital Performed Standing Order Information Remaining Occurrences:0 /1 Interval:CONTINUOUS Last released:12/05/2019 Released orders: SunDec 05, 2019 2:41 PM by: RITIKA CANAS COD2 FULL CODE [#[id number]] Priority: STAT Cl ass: Hospital Performed Released on: 12/05/2019 2:41 PM [id number] EEG 12-26 HR W/VIDEO [# [id number]] Priority: Routine Class: Hospital Performed Standing Order Information Remaining Occurre nces:0/1 Interval:ONE TIME Last released:12/05/2019 Released orders: SunDec 04 3:19 PM by: JOES KHAN Reason for Exam: -> ams [id number] EEG 12-26 HR W/VIDEO [#[id number]] Priority: STAT Class: Hospital Performed Resulting Agency: [facility] Test ID: NEU1 [id number] Reason for Exam: -> ams Released on: 12/05/2019 3:19 Maxwell Corona MR#: [id number] * Rm: 441- 01Ht: 5' 5.75" Wt: 300 lb Code: Full Code Iso:Diagnosis:Encep halopathy acute [G93.40]Allergies: No Known Allergies -------- Current as of: 12/05/191806 NB=New Bag --aspirin (ASPIRIN) tablet 325 mg #[id number] Admin Amount: 1 Tab (1 x 325 mg Tab) Ordered Dose: 325 mg Route: Oral Freq: ONCE Start Date: 12/24/13 No administration times (back 96 hours, ahead 96 hours). ------diphenhydrAMINE (BENADRYL) capsule 50 mg #[id number] Admin Amount: 1 Cap (1 x 50 mg Cap) Ordered Dose: 50 mg Route: Ora l Freq: NOW Start Date: 12/24/13 No administration times (back 96 hours, ahe ad 96 hours). ------diazepam (VALIUM) tablet 5 mg #[id number] Admin Amount: 1 Tab (1 x 5 mg Tab) Ordered Dose: 5 mg Route: Oral Freq: ON CE Start Date: 12/24/13 No administration times (back 96 hours, ahead 96 hours). ------lidocaine (XYLOCAINE) 10 mg/mL (1 %) injection 1-30 mL #[id number] Admin Amount: 1-30 mL Ordered Dose: 1-30 mL Route: IntraDERMal Freq: ONCE Start Date: 12/24/13 No administration times (back 96 hours, ahead 96 hours). ------heparin (PF) 2 units/ml in NS infusion 2,000 Units #[id number] Admin Amount: 1,000 mL = 2,000 Units of 2 Units/mL Ordered Dose: 1,000 mL [place]: Irrigation Freq: ONCE Start Date: 12/24/13 No administration times (back 96 hours, ahead 96 hours). ------heparinized saline 2 units/mL infusion 1,000 Units #[id number] Admin Amount: 500 mL = 1,000 Units of 2 Units/mL Ordered Dose: 500 mL [place]: IntraarTERial Freq: ONCE Start Date: 12/24/13 No administration times (back 96 hours, ahead 96 hours). ------0.9% sodium chloride infusion #[id number] Ordered Dose: 75 mL/hr Route: IntraVENous Freq: CONTINUOUS Start Date: 12/24/13 Rate: 75 mL/hr Duration: No administration times (back 96 hours, ahead 96 hours). ------ioversol (OPTIRAY) 320 mg iodine/mL contrast injection 1-100 mL #[id number] Admin Amount: 1-100 mL Ordered Dose: 1-100 mL Route: IntraVENous Freq: RAD O NCE Start Date: 12/24/13 No administration times (back 96 hours, ahead 96 hours).Maxwell Bray MR#: [id number] * Rm: 441-01Ht: 5' 5.75" Wt: 300 lb Cod e: Full Code Iso:Diagnosis:Encephalopathy acute [G93.40]Allergies: No Known Allergies -------- Current as of: 12/05/19 1807 NB=New Bag --gadobutrol (GADAVIST) contrast solution 1-10 mL #[id number] Admin Amount: 1-10 mL Ordered Dose: 1-10 mL Route: IntraVENous Freq: RAD O NCE Start Date: 01/13/14 No administration times (back 96 hours, ahead 96 hours). ------sodium chloride (NS) flush 5-10 mL #[id number] Admin Amount: 5-10 mL Ordered Dose: 5-10 mL Route: IntraVENous Freq: RAD ONCE Start Date: 01/13/14 No administration times (back 96 hours, ahead 96 hours). ------sodium chloride (NS) 0.9 % flush #[id number] Ordered Dose: Route: Freq: Start Date: 01/13 No administration times (back 96 hours, ahead 96 hours). ------morphine injection 2 mg #[id number] Admin Amount: 1 mL = 2 mg of 2 mg/mL Ordered Dose: 2 mg Route: IntraVENous Freq: NOW Start Date: 03/13/15 No administration times (back 96 hours, ahe ad 96 hours). ------influenza vaccine (4 yr+)(PF) (FLUCELVAX QUAD) inj ection 0.5*#[id number] Admin Amount: 0.5 mL Ordered Dose: 0.5 mL Route: IntraMUSCular Freq: PRIOR TO DISCHARGE Start Date: 03/30/16 No administration times (back 96 hours, ahead 96 hours). ------oxyCODONE-acetaminophen (PERCOCET) 5-325 mg per tablet 1 Tab #[id number] Admin Amount: 1 Tab Ordered Dose: 1 Tab Route: Oral Freq: NOW Start Date: 09/07/17 No administration times (back 96 hours, ahead 96 hours). ------barium sulfate (READICAT) 2.1 % (w/v), 2.0 % (w /w) oral suspension 9*#[id number] Admin Amount: 900 mL Ordered Dose: 900 mL Route: Oral Delgado q: RAD ONCE Start Date: 10/15/17 No administration times (back 96 hours, ahead 96 hours). ------iopamidol (ISOVUE 300) 61 % contrast injection 100 mL #[id number] Admin Amount: 100 mL Ordered Dose: 100 mL Route: IntraVENous Freq: RAD ONC E Start Date: 10/15/17 No administration times (back 96 hours, ahead 96 hours).Maxwell Bray MR#: [id number] * Rm: 441-01Ht: 5' 5.75" Wt: 300 lb Code: Full Code Iso:Diagnosis:Encephalopathy acute [G93.40]Allergies: No Known Allergies -------- Current as of: 12/05/191806 NB=New Bag --risperiDONE (RisperDAL m-tabs) disintegrating tablet 1 mg #[id number] Admin Amount: 1 Tab (1 x 1 mg Tab) Ordered Dose: 1 mg Route: Oral Freq: ONCE Start Date: 12/24/17 No administration times (back 96 hours, ahead 96 hours). ------ALPRAZolam (XANAX) tablet 2 mg #[id number] Admin Amount: 4 Tab (4 x 0.5 mg Tab) Ordered Dose: 2 mg Route: Ora l Freq: NOW Start Date: 12/24/17 No administration times (back 96 hours, ahe ad 96 hours). ------lamoTRIgine (LaMICtal) tablet 100 mg #[id number] Admin Amount: 1 Tab (1 x 100 mg Tab) Ordered Dose: 100 mg Route: Oral Delgado q: ONCE Start Date: 12/24/17 No administration times (back 96 hours, ahead 96 hours). ------OLANZapine (ZyPREXA zydis) disintegrating tablet 5 mg #[id number] Admin Amount: 1 Tab (1 x 5 mg Tab) Ordered Dose: 5 mg Route: Oral Delgado q: ONCE Start Date: 12/25/17 No administration times (back 96 hours, ahead 96 hours). ------LORazepam (ATIVAN) tablet 2 mg #[id number] Admin Amount: 4 Tab (4 x 0.5 mg Tab) Ordered Dose: 2 mg Route: Ora l Freq: NOW Start Date: 12/25/17 No administration times (back 96 hours, [facility] ad 96 hours). ------LORazepam (ATIVAN) injection 1 mg #[id number] Admin Amount: 0.5 mL = 1 mg of 2 mg/mL Ordered Dose: 1 mg Route: Int TrevorBrigette Freq: NOW Start Date: 12/25/17 No administration times (back 96 hours, [facility] ad 96 hours). ------barium sulfate (EZ PAQUE) 96 % (w/w) contrast suspension 17 6 g #[id number] Admin Amount: 176 g Ordered Dose: 176 g Route: Oral Freq: RAD ONCE Start Date: 08/02/18 No administration times (back 96 hours, ahead 96 hours). ------barium sulfate (EZ PAQUE) 96 % (w/w) contrast s uspension 176 g #[id number] Admin Amount: 176 g Ordered Dose: 176 g Route: Oral Delgado q: RAD ONCE Start Date: 08/02/18 No administration times (back 96 hours, ahead 96 hours).Maxwell Ritter MR#: [id number] * Rm: 441-01Ht: 5" Wt: 300 lb Cod e: Full Code Iso:Diagnosis:Encephalopathy acute [G93.40]Allergies: No Known Allergies -------- Current as of: 12/05/19 1807 NB=New Bag --aspirin chewable tablet 162 mg #[id number] Admin Amount: 2 Tab (2 x 81 mg Tab) Ordered Dose: 162 mg Route: Oral Freq: NOW Start Date: 08/10/19 No administration times (back 96 hours, ahead 96 hours). ------0.9% sodium chloride infusion 1,000 mL #[id number] Admin Amount: 1,000 mL Ordered Dose: 1,000 mL Route: IntraVENous Freq: ONC E Start Date: 08/16/19 Rate: 1,000 mL/hr Duration: No administration ti mes (back 96 hours, ahead 96 hours). ------methylPREDNISolone (PF) (Solu-MEDROL) injection 125 mg #[id number] Admin Amount: 2 mL = 125 mg of 125 mg/2 mL Ordered Dose: 125 mg Route: Int raVENous Freq: NOW Start Date: 08/16/19 No administration times (back 96 hours, ahe ad 96 hours). ------aspirin chewable tablet 162 mg #[id number] Admin Amount: 2 Tab (2 x 81 mg Tab) Ordered Dose: 162 mg Route: Oral Delgado q: NOW Start Date: 08/16/19 No administration times (back 96 hours, ahead 96 hours). ------haloperidoL (HALDOL) tablet 5 mg #[id number] Admin Amount: 1 Tab (1 x 5 mg Tab) Ordered Dose: 5 mg Route: Oral Delgado q: ONCE Start Date: 10/30/19 No administration times (back 96 hours, ahead 96 hours). ------cefTRIAXone (ROCEPHIN) 1 g in 0.9% sodium chloride (MBP/ADV) 50 m L M*#[id number] Admin Amount: 1 g Ordered Dose: 1 g Route: IntraVENous Freq: NOW Start Date: 12/05/19 Rate: 100 mL/hr Duration: 30 Minutes Administration linda es (back 96 hours, ahead 96 hours): 12/05/19: 1428NB -----0.9% sodium chloride infusion #[id number] Ordered Dose: 125 mL/hr Route: IntraVENous Freq: CONTINUOUS Start Date: 12/05/19 Rate: 125 mL/hr Duration: Administration times (back 96 hours, ahead 96 hours): 12/05/19: 1408NATALIEMaxwell Bray MR#: [id number] * Rm : 441-01Ht: 5' 5" Wt: 300 lb Code: Full Code Iso:Diagnosis:Encephalopathy acute [G93. 40]Allergies: No Known Allergies -------- Current as of: 12/05/191806 NB=New Bag --enoxaparin (LOVENOX) injection 40 mg #[id number] Admin Amount: 0.4 mL = 40 mg of 40 mg/0.4 mL Ordered Dose: 40 mg [place]: SubCUTAneous Freq: EVERY 24 HOURS Start Date: 12/05/19 Administration times (back 96 h ours, ahead 96 hours): 12/05/19: 209912/06/19: 209912/07/19: 209912/08/19: 2099 ---furosemide (LASIX) injection 20 mg #[id number] Admin Amount: 2 mL = 20 mg of 10 mg/mL Ordered Dose: 20 mg [place]: IntraVENous Freq: ONCE Start Date: 12/05/19 Administration [...] Inf ormationFollow-up With:Ritika Canas MDDetails:Comments:Contact Info:[address] [facility] [address] [place] [id number] Name Value Range Interpretation Code Description Data Melani rce(s) Supporting Document(s ) ID Date Data Source [id number] 12/05/2019 04:36:09 PM EDT [facility] The history is provided by the [...] of morbidity or mortality cardiac cath at [facility] approx 6-8 months ag o Other [...] week Gets together: Once a week Attends buddhism service: More than 4 times per year [...] QTC Calculation (Bezet) 515 ms Calculated P [place] 40 degrees Calculat ed R [place] 41 degrees Calculated T [place] 147 degrees Diagnosis Sinus tachycardiaProb able left [...] Time: 12/05/19 12:38 PMResult Value Ref Range Rouse level 1.53 (HH) 0.6 - 1.2 MMOL/LLACTIC ACID Collection Time: 12/04 12:40 PMResult Value Ref Range Lactic acid 1.1 0.4 - 2.0 MMOL/LEKG:Sinus tachy cardia at 100 BPM, normal axis, nothing acute.Interpreted by Julio Manzo MD11:2 0 AM classroom monitor reading shows sinus tachycardia at 100 BPM. [...] cardiac monitoring, CXR, and head CT. Will real estate specialist ocephin, IV fluids, and oxygen. Will consult [...] Supporting Document(s ) ID Date Data Source [id number] 12/05/2019 04:05:06 PM EDT [facility] [address] [place] [address] [id number] CONSULT NOTEPatient: Maxwell Bray Se x: male [...] or sensory fuentes es. Lab significant of Rouse 1.53 and elevatedliver enzymes. Neurology consult ed for encephalopathy/drug adverse reaction.Past Medical History:Diagnosis Date Other unknown and unspecified cause of morbidity or mortality cardiac cath at [facility] approx 6-8 months ago Other unknown [...] QTC Calculation (Bezet) 515 ms Calculated P [place] 40 degrees Calculated R [place] 41 degrees Calculated T [place] 147 degrees Diagnosis Sinus tachycardiaProbable left atrial [...] Time: 12/05/19 12:38 PMResult Value Ref Range Rouse level 1.53 (HH) 0.6 - 1.2 MMOL/LLACTIC [...] were created on an independent workstation. [facility] the examination was performed to optimize [...] QTC Calculation (Bezet) 515 ms Calculated P [place] 40 degrees Calculat ed R [place] 41 degrees Calculated T [place] 147 degrees Diagnosis Sinus tachycardiaProb able left [...] pain of surekha monieder M79.2 Seizure disorder ([facility]) G40.909 Spells [id number] Severe obesity ([facility]) E66 .01 Depression F32.9 Anxiety F41.9 Bipolar disorder (HCC) F31.9 Depressive disorde r F32.9 Status post gastric bypass for obesity Z98.84 Morbid obesity ([facility]) E66 .01 Mixed anxiety and depressive disorder F41.8 Vitamin D deficiency E55.9 Bipol ar disorder with severe depression (HCC) F31.4 Encephalopathy acute G93.40 Adve rse drug reaction, initial encounter T50.905A Lql-ynuk-tkuxxpb adverse reaction to me dication T88.7XXA49 year old male with pmh as stated above and now with AMS and genera lizedweakness - most likely secondary to lithium toxicity - ? Seizure.Plan: Mri Brain Ammonia Monitor lithium level daily EEG - 24 hrs Seizure precautionsPaulson Gerald Flores 2019 3:19 [id number] Name Value Range Interpretation Code Description Data Melani rce(s) Supporting Document(s ) ID Date Data Source [id number] 12/05/2019 03:37:45 PM EDT [facility] sbar-q given to Ev Dave tr tejalport to floor Name Value Range Interpretation Code Description Data Melani rce(s) Supporting Document(s ) ID Date Data Source [id number] 12/05/2019 03:29:57 PM EDT [facility] sbar-q given to Sheri UGALDE on floor Name Value Range Interpretation Code Description Data Melani rce(s) Supporting Document(s ) ID Date Data Source [id number] 12/05/2019 03:28:02 PM EDT [facility] History & PhysicalBrian Anam Bray is a [...] h igh dose amytriptylene 200 mg nightly, Rouse, andVraylar 6 mg. :Rouse level on prior admission therapeutic. Patient's wifecontactedthis [...] of morbidity or mortality cardiac cath at [facility] approx 6-8 months ag o Other [...] week Gets together: Once a week Attends buddhism service: More than 4 times per year [...] Calculati on (Bezet) 515 ms Calculated P [place] 40 degrees Calculated R [place] 41 degrees Elena culated T [place] 147 degrees Diagnosis Sinus tachycardiaProbable left atrial [...] Time: 12/05/19 12:38 PMResult Value Ref Range Rouse level 1.53 (HH) 0.6 - 1.2 MMOL/LLACTIC ACID Collection Time: 12/04 12:40 PMResult Value Ref Range Lactic acid 1.1 0.4 - 2.0 MMOL/All lab results for the last 24 hours reviewed. Serun Rouse level toxicAssessment/PlanPrinci pal Problem: Adverse drug reaction, initial encounter (12/05/2019) LithiumActive Prob lems: Encephalopathy acute (12/05/2019) Brw-ujkx-mdxdsmd adverse reaction to med ication (12/05/2019)Neuro, and psych evaluation, hydrationGeorge MD Corey Name Value Range Interpretation Code Description Data Melani rce(s) Supporting Document(s ) ID Date Data Source [id number] 12/06/2019 12:36:10 PM EDT [facility] Name Value Range Interpretation Description Data Sup porting Code Source(s) Document(s ) Service comment [facility] Bacteria [facility] identified in [facility] Unspecified Hospital specimen by Culture ID Date Data Source [id number] 12/05/2019 04:18:26 PM EDT [facility] Name Value Range Interpretation Description Data Sup porting Code Source(s) Document(s ) Color of Urine YEL Abnormal (applies [facility] - to non-numeric Good results) [facility] Appearance of CLEAR Abnormal (applies [facility] - Urine to non-numeric Good results) [facility] Specific gravity 1.033 1.003-1. Above high normal [facility] - of Urine by 030 Good Refractometry [facility] pH of Urine by 5.5 4.6-8.0 [facility] - Test strip Good [facility] Protein 30 mg/dL NEG Abnormal (applies [facility] - [Mass/volume] in to non-numeric Good Urine by Test results) [facility] Glucose NEG [facility] - [Mass/volume] in Good Urine by [facility] Automated test Hospital strip Ketones 15 mg/dL NEG Abnormal (applies [facility] - [Presence] in to non-numeric Good Urine by results) [facility] Automated test [facility] strip Bilirubin.total NEG Abnormal (applies [facility] - [Presence] in to non-numeric Good Urine results) [facility] Hemoglobin NEG [facility] - [Presence] in Good Urine by Test [facility] Hospital Urobilinogen 1.0 0.2-1.0 [facility] - [Presence] in EU/dL Good Urine by [facility] Automated test Hospital strip Nitrite NEG [facility] - [Presence] in Good Urine by [facility] Automated test Hospital strip Leukocyte NEG [facility] - esterase Good [Presence] in [facility] Urine by Hospital Automated test strip Leukocytes 0-5 [facility] - [Presence] in Good Urine sediment [facility] by [facility] microscopy Erythrocytes 0-2 [facility] - [#/area] in Good Urine sediment [facility] by [facility] high power field Epithelial cells 0-10 [facility] - [#/area] in Good Urine sediment [facility] by [facility] high power field Bacteria NONE Abnormal (applies [facility] - [Presence] in to non-numeric Good Urine sediment results) [facility] by [facility] microscopy ID Date Data Source [id number] 12/05/2019 03:26:35 PM EDT [facility] Value Range Interpretation Description Data Sup porting Code Source(s) Document(s ) Bilirubin NEG [facility] [Presence] in [facility] Urine by Hospital Confirmatory method ID Date Data Source [id number] 12/05/2019 02:22:27 PM EDT [facility] I spoke to Dr. Canas regarding Observation Status. Dr. Canas said patient will bemade In Patient Status today. Name Value Range Interpretation Code Description Data Melani rce(s) Supporting Document(s ) ID Date Data Source [id number] 12/05/2019 02:03:27 PM EDT [facility] SW/Psych Screener attempted to meet with Pt for MH evaluation. Pt was foundlying on stretcher with his eyes open, staring at the wall. Cadmium Liquor Maker knows this Ptfrom previous admission to the medical floor. When ask ed if Pt rememberedwriter, Pt appeared confused, but said he did. Pt stated he fell today, doesn'tremember how he was brought to the hospital. Pt appeared to be searching for hiswords and was having difficulty speaking. Pt unclear of where he is, stating[place] when asked where he was and [place]" when asked what month it was. Whenasked if Pt was exhibiting any feelings of S/I, H/I or A/V Hallucinatio ns, Ptresponded with, "No," and confirmed he has been compliant with his psychiatricm edications. Cadmium Liquor Maker conferred with ER Attending, Dr. Manzo, who states that Ptwi ll most likely be medically admitted at this time.Krystina Centeno, HECTOR, CASAC-2 Name Value Range Interpretation Code Description Data Melani rce(s) Supporting Document(s ) ID Date Data Source [id number] 12/05/2019 12:53:37 PM EDT [facility] [place] CT HEAD W/O CONTRASTPRIOR: Multiple: Mos t [...] Supporting Document(s ) ID Date Data Source [id number] 12/05/2019 01:31:37 PM EDT [facility] Name Value Range Interpretation Description Data Sup porting Code Source(s) Document(s ) Lactate 1.1 0.4-2.0 [facility] - Good [Moles/volu MMOL/L [facility]] in Hospital Serum or Plasma ID Date Data Source [id number] 12/10/2019 05:19:22 AM EDT [facility] Name Value Range Interpretation Description Data Sup porting Code Source(s) Document(s ) Service comment BSS - [facility] Bacteria BSS - Good identified in [facility] specimen by Culture ID Date Data Source [id number] 12/05/2019 02:14:34 PM EDT [facility] Name Value Range Interpretation Description Data Sup porting Code Source(s) Document(s ) Rouse 1.53 0.6-1.2 Above upper panic [facility] - Good [Moles/volu MMOL/L limits [facility]] in Hospital Serum or Plasma CALLED TO AND READ BACK KERLINE GAMBLE 1414 12/05/19 [facility] MARY ID Date Data Source [id number] 12/05/2019 01:31:37 PM EDT [facility] Name Value Range Interpretation Description Data Sup porting Code Source(s) Document(s ) Troponin 0.00-0.05 [facility] - Good I.cardiac [facility] [Mass/volume Hospital ] in Serum or Plasma [...] to 1.50 ng/mL ID Date Data Source [id number] 12/05/2019 01:31:37 PM [facility]T [facility] Name Value Range Interpretation Description Data Sup porting Code Source(s) Document(s ) Sodium 134 136-145 Below low normal [facility] - Good [Moles/volume] mmol/L [facility] in Serum or Hospital Plasma Potassium 3.5 3.5-5.1 [facility] - Good [Moles/volume] mmol/L [facility] in Serum or Hospital Plasma Chloride 104 98-107 [facility] - Good [Moles/volume] mmol/L [facility] in Serum or Hospital Plasma Carbon 26 21-32 [facility] - Good dioxide, total mmol/L [facility] [Moles/volume] Hospital in Serum or Plasma Anion gap in 7 mmol/L 10-20 Below low normal [facility] - Go od Serum or [facility] Plasma Hospital Glucose 127 74-106 Above high normal [facility] - Good [Mass/volume] mg/dL [facility] in Serum or Hospital Plasma Urea nitrogen 21 mg/dL 7-18 Above high normal [facility] - Good [Mass/volume] [facility] in Serum or Hospital Plasma Creatinine 0.94 0.70-1.3 [facility] - Good [Mass/volume] mg/dL 0 [facility] in Serum or Hospital Plasma Glomerular >60 [facility] - Good filtration [facility] rate/1.73 sq M Hospital predicted among blacks [Volume Rate/Area] in Serum or Plasma by Creatinine-bas ed formula (MDRD) Glomerular >60 [facility] - Good filtration [facility] rate/1.73 sq M Hospital predicted among non-blacks [Volume Rate/Area] in Serum or Plasma by Creatinine-bas ed formula (MDRD) (NOTE)Estimated GFR is calculated using the Modification of Diet in RenalDisease (MDRD) Study equation, reported for both Americans(GFRAA) and non- Americans (GFRNA), and normalized to 1.7 5i9iyxa surface area. The physician must decide which [...] normal [facility] - Good Serum or Plasma [facility] ital Bilirubin.total 0.9 mg/dL 0.2-1.0 [facility] - Good [Mass/volume] in Serum or [facility] Plasma Alanine aminotransferase 34 U/L 13-61 [facility] - Good [Enzymatic activity/volume] [facility] in Serum or Plasma Aspartate aminotransferase 47 U/L 15-37 Above high [facility] - Good [Enzymatic activity/volume] normal [facility] in Serum or Plasma by With P-5'-P Alkaline phosphatase 171 U/L 45-117 Above high [facility] - Good [Enzymatic activity/volume] normal [facility] in Serum or Plasma Protein [Mass/volume] in 7.5 g/dL 6.4-8.2 [facility] - Good Serum or Plasma [facility] Hosp ital Albumin [Mass/volume] in 3.8 g/dL 3.5-4.7 [facility] - Good Serum or Plasma by [facility] Bromocresol purple (BCP) dye binding method Globulin [Mass/volume] in 3.7 g/dL 1.7-4.7 [facility] - Good Serum by calculation [facility] Albumin/Globulin [Mass 1.0 0.7-2.8 [facility] - Good Ratio] in Serum or Plasma [facility] ID Date Data Source [id number] 12/05/2019 01:31:37 PM EDT [facility] - Good [facility] Name Value Range Interpretation Description Data Sup porting Code Source(s) Document(s ) Magnesium 2.9 mg/dL 1.6-2.6 Above high normal [facility] - Good [Mass/volume] [facility] in Serum or Hospital Plasma ID Date Data Source [id number] 12/05/2019 01:20:04 PM EDT [facility] - Good [facility] Name Value Range Interpretation Description Data Sup porting Code Source(s) Document(s ) Prothrombin 10.6 sec 9.4-11.1 [facility] - Good time (PT) [facility] INR in 1.0 0.8-1.2 [facility] - Good Platelet poor [facility] plasma by [facility] Coagulation assay ID Date Data Source [id number] 12/05/2019 01:07:21 PM EDT [facility] - [facility] Name Value Range Interpretation Description Data Sup porting Code Source(s) Document(s ) Leukocytes 12.4 4.8-10.6 Above high normal [facility] - [#/volume] in K/uL Good Blood by [facility] Erythrocytes 5.03 4.70-6.0 [facility] - [#/volume] in M/uL 0 Good Blood by [facility] Hemoglobin 15.4 14.0-18. [facility] - [Mass/volume] in g/dL 0 Good Blood [facility] Hematocrit 45.8 % 42.0-52. [facility] - [Volume 0 Good Fraction] of [facility] Blood by Hospital Automated count Erythrocyte mean 91.1 FL 81.0-94. [facility] - corpuscular 0 Good volume [Entitic [facility] volume] by Hospital Automated count Erythrocyte mean 30.6 PG 27.0-35. [facility] - corpuscular 0 Good hemoglobin [facility] [Entitic mass] [facility] by Automated count Erythrocyte mean 33.6 30.7-37. [facility] - corpuscular g/dL 3 Good hemoglobin [facility] [Mass/volume] by Automated count Erythrocyte 12.9 % 11.5-14. [facility] - distribution 0 Good width [Ratio] by [facility] Automated count Hospital Platelets 164 K/uL 130-400 [facility] - [#/volume] in [facility] Blood by [facility] Automated count [facility] Platelet mean 9.5 FL 9.2-11.8 [facility] - volume [Entitic Good volume] in Blood [facility] by Automated Hospital count Nucleated 0.0 PER 0 [facility] - erythrocytes/100 100 WBC Good leukocytes [facility] [Ratio] in Blood Hospital Nucleated 0.00 0.0-0.01 [facility] - erythrocytes K/uL Good [#/volume] in [facility] Segmented 80 % 48.0-72. Above high normal [facility] - neutrophils/100 0 Good leukocytes in [facility] Lymphocytes/100 8 % 18.0-40. Below low normal [facility] - leukocytes in 0 [facility] Monocytes/100 10 % 2.0-12.0 [facility] - leukocytes in [facility] Eosinophils/100 1 % 0.0-7.0 [facility] - leukocytes in [facility] Basophils/100 0 % 0.0-3.0 [facility] - leukocytes in [facility] Immature 0 % 0-0.5 [facility] - granulocytes/100 Good leukocytes in [facility] by Hospital Automated count Segmented 10.0 2.3-7.6 Above high normal [facility] - neutrophils K/UL Good [#/volume] in [facility] Lymphocytes 1.0 K/UL 0.9-4.2 [facility] - [#/volume] in [facility] Monocytes 1.2 K/UL 0.1-1.7 [facility] - [#/volume] in [facility] Eosinophils 0.1 K/UL 0.0-1.0 [facility] - [#/volume] in [facility] Basophils 0.0 K/UL 0.0-0.4 [facility] - [#/volume] in [facility] Immature 0.1 K/UL 0.0-0.17 [facility] - granulocytes Good [#/volume] in [facility] by Hospital Automated count Differential [facility] - cell count Good method - Blood [facility] Hospital ID Date Data Source [id number] 12/10/2019 05:19:23 AM EDT [facility] Name Value Range Interpretation Description Data Sup porting Code Source(s) Document(s ) Service comment [facility] Bacteria [facility] identified in [facility] Hospital specimen by Culture ID Date Data Source [id number] 12/05/2019 12:24:35 PM EDT [facility] PELVIS one view.History: TraumaThe study is suboptimal due to the patient's body habitus.There is no evidence of fracture , dislocation, subluxation, bone erosion orarthritis.IMPRESSION: Grossly normal s tudy. Signing date/time: 12/05/2019 12:24 PMSigned by: CURTIS VARMA Name Value Range Interpretation Code Description Data Melani rce(s) Supporting Document(s ) ID Date Data Source [id number] 12/05/2019 12:23:11 PM EDT [facility] CHEST 1 view (s)HISTORY: Chest pain.COMP ARISON: [...] Supporting Document(s ) ID Date Data Source [id number] 12/05/2019 11:34:39 AM EDT [facility] BIBA for fall in the middle of the night while going to bathroomC/p left hip pain Name Value Range Interpretation Code Description Data Melani rce(s) Supporting Document(s ) ID Date Data Source [id number] 12/05/2019 11:21:27 AM EDT [facility] Please enter the current weight for this patient in [facility]. Thank you. Name Value Range Interpretation Code Description Data Melani rce(s) Supporting Document(s ) ID Date Data Source [id number] 11/23/2019 02:02:47 PM EDT [facility] Discharge SummaryPatient: Maxwell mackey Sex: male DOA: [...] E66.01ICD-9-CM: 278.01 07/19/2018 - Present Spells ICD-10-CM: [id number]-EL: IMO00 01 04/08/2016 - Present Seizure disorder [...] tr eated with parenteral hydration with benefit [id number] responses. Of note i s fact that [...] Supporting Document(s ) ID Date Data Source [id number] 11/03/2019 09:41:35 PM EDT [facility] Verbal shift change report given to , RN (oncoming nurse) by Scott Beverly RN (offgoing nurse). Report included the fo llowing information SBAR, Kardex,Intake/Output, MAR and Recent Res ults. Name Value Range Interpretation Code Description Data Melani rce(s) Supporting Document(s ) ID Date Data Source [id number] 11/03/2019 03:34:07 PM EDT [facility] Per psych note, CM to confirm patient ap pt with psychiatristCall to Dr Mateo Méndez office # [phone], office [facility] ent aware of # to call to make his own appt, psychiatry info placed on [facility] ent states his will be coming this evening to drive him homeCare Management InterventionsPCP Verified by CM: YesPalliative Care Criteria Met (RRAT>21 & CHF Dx)?: NoMode of Transport at Discharge: Other (see comment)( yanni maciel between approx5-6)Transition of Care Consult (CM Consult): Discharge Planning Physical Therapy Consult: NoOccupational Therapy Consult: NoSpeech Therapy Consul t: NoCurrent Support Network: Lives with Spouse, Own Home( [place]anca ,[phone])Confirm Follow Up Transport: FamilyThe Patient and/or Patient [...] Supporting Document(s ) ID Date Data Source [id number] 11/03/2019 02:45:48 PM EDT [facility] PHYSICAL THERAPY TREATMENTPatient: Maxwell Bray (49 y.o. [...] Supporting Document(s ) ID Date Data Source [id number] 11/03/2019 01:09:08 PM EDT [facility] General Daily Progress NoteAdmit Date: Hospital day: [...] past 8 hrs: BP Temp Pulse Resp BeD98011/03/19 0752 115 /76 97.6 F (36.4 C) [...] Supporting Document(s ) ID Date Data Source [id number] 11/03/2019 10:52:30 AM EDT [facility] S/O patient has seen for follow up via V ideo . He is doing much better. Hedenies any auditory or visual hallucination any mor eHe has no suicidal or homicidal thoughtsHe reports that he sees Dr. marie every ot her weeksPt wants to follow up with Dr. Marie after dischargePlan continue on a ll current psychotropic medications Requesting senior case manager to confirm his a ppointment with Dr. mariebefore he discharged Please re consult if n eeded Name Value Range Interpretation Code Description Data [facility] rce(s) Supporting Document(s ) ID Date Data Source [id number] 11/03/2019 07:12:34 AM EDT [facility] Bedside and Verbal shift change report g iven to Meño Rose RN (oncomingnurse) by June Ochoa RN (offgoing nurse). Repor t included the followinginformation SBAR, Kardex, Intake/Output, MAR, Recent Resul ts and Med Rec Status. Name Value Range Interpretation Code Description [facility] Document(s ) ID Date Data Source [id number] 11/02/2019 11:18:25 PM EDT [facility] Problem: Falls - Risk ofGoal: *Absence o [...] Harsh Scale and appropriate interventio ns [facility].Outcome: Progressing Towards GoalNote: Pressure Injury Interv entions:Sensory [...] Supporting Document(s ) ID Date Data Source [id number] 11/02/2019 07:34:02 PM EDT [facility] Bedside shift change report given to GILLIAN KEATING (oncoming nurse) by Meño Rose(offgoing nurse). Report included the following information SBAR, Kardex andIntake/Output. Name Value Range Interpretation Code Description Data [facility] Supporting Document(s ) ID Date Data Source [id number] 11/02/2019 05:14:50 PM EDT [facility] Telehealth Progress NotePursuant to the emergency declaration [...] conducted via [] Telephone [x] VideoconferenceDate: 11/02/2019Moraima Franny mber: [id number]: Maxwell Robin & Joe PROGRESS NOTE:Coordinated treatment team rounds conducted with psychiatrist, patient, nursesand/or hospice social worker present ; dis cussions held with senior case manager and/or familymembers; Chart reviewed in full in cluding transportation consultant notes, ancillary staffnotes, vitals and labs in [facility] EMR reviewed in full.SUBJECTIVE: Pt seen for first time on Video with my SW Mendy And RN , hereports less hallucinations , as they are still there in the morning But overall better since got back on vraylar told me was scheduled for ECT at [facility] but due to elective , it [...] past 8 hrs: Temp Pulse Resp BP GiP745/10/20 1546 98.3 F (36.8 C) 84 18 [...] (LOVENOX) injection 40 mg 40 mg SubCUTAneous [id number] Medications:C urrent Facility-Administered MedicationsMedication Dose Route Frequen [...] ENOX) injection 40 mg 40 mg SubCUTAneous [id number]/PLAN:Continue current kalie atment as pt is stabalizingPatient [...] Supporting Document(s ) ID Date Data Source [id number] 11/02/2019 03:02:33 PM EDT [facility] General Daily Progress NoteAdmit Date: Hospital [...] (LOVENOX) injection 40 mg 40 mg SubCUTAneous [id number]:Patient Vitals for the past 8 hrs: BP [...] contrast. Sagittal and coronal reconstruction was performed.Uti [employer] mapping editor algorithm the examination was performed to optimizeimaging [...] Supporting Document(s ) ID Date Data Source [id number] 11/02/2019 07:48:14 AM EDT [facility] Verbal shift change report given to Jody wells RN (oncoming nurse) by Juliane UGALDE (offgoing nurse). Report included the following information SBAR,Kardex, Intake/Output, MAR and Recent Results Name Value Range Interpretation Code Description Data Melani rce(s) Supporting Document(s ) ID Date Data Source [id number] 11/02/2019 05:41:52 AM EDT [facility] Patient AOX3 with periodic confusion. In bed watching TV. All med's given asordered by MD, tolerated well. Fall precaution m easures reinforced. Call bellwithin reach, bed in low position. Has urinal and comm ode at bedside. Voices nocomplaint at this time. Will continue to monitor pt. Name Value Range Interpretation Code Description Data Melani rce(s) Supporting Document(s ) ID Date Data Source [id number] 11/01/2019 08:46:30 PM EDT [facility] Problem: Falls - Risk ofGoal: *Absence o [...] Name Value Range Interpretation Code Description Data [facility] rce(s) Supporting Document(s ) ID Date Data Source [id number] 11/01/2019 08:00:09 PM EDT [facility] Verbal shift change report given to Ly vitale RN (oncoming nurse) by SUSI Palacio (offgoing nurse). Report included the following information SBAR,Intake/Output, MAR and Recent Results. Name Value Range Interpretation Code Description Data [facility] rce(s) Supporting Document(s ) ID Date Data Source [id number] 11/01/2019 03:49:42 PM EDT [facility] Adult Progress NoteDate: 11/01/2019Account Number: [id number]: Maxwell Mendieta TrimbleDiagnosis: History of mood and [...] (LOVENOX) injection 40 mg 40 mg SubCUTAneous [id number] following information was reviewed and discussed: Patient [...] Supporting Document(s ) ID Date Data Source [id number] 11/01/2019 02:42:08 PM EDT [facility] General Daily Progress NoteAdmit Date: Hospital day: [...] past 8 hrs: BP Temp Pulse Resp QeN745/03/14 0715 101/67 98 F (36.7 C) 70 [...] Sagittal and coronal reconstr uction was performed.Utilizing mapping editor algorithm the examination was performed to optimizeimaging [...] Prominent interstitial markings arefelt to reflect vascular bush and vine fruit crop farmer 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 Repeat PA andlateral views the chest are advised i f there is clinical concern for pneumoniaor congestive failure.Assessment:Active Pro blems: Bipolar disorder with severe depression (HCC) (10/29/2019)Plan:Improvin g status Name Value Range Interpretation Code Description Data Melani rce(s) Supporting Document(s ) ID Date Data Source [id number] 11/01/2019 07:08:12 AM EDT [facility] - [facility] Verbal shift change report given to Chandrakant Albert RN (oncoming nurse) Colin Hoffmann RN (offgoing nurse). Report incl uded the following informationSBAR, Kardex, Intake/Output, MAR and Recent Results. Name Value Range Interpretation Code Description Data [facility] rce(s) Supporting Document(s ) ID Date Data Source [id number] 10/31/2019 07:59:03 PM EDT [facility] Verbal shift change report given to Shreya adrian RN (oncoming nurse) by SUSI Palacio (offgoing nurse). Report included the following information SBAR,Kardex, Intake/Output, MAR and Recent Results. Name Value Range Interpretation Code Description Data [facility] Supporting Document(s ) ID Date Data Source [id number] 10/31/2019 05:09:32 PM EDT [facility] Telehealth ConsultationPursuant to the e mergency declaration [...] [] Telephone [x] VideoconferenceSubjective:Patient: Maxwell BrayN #: [id number]: [id number]: 49 y.o. Sex: maleAdm it Date: 10/29/2019Attending: [...] week Gets together: Once a week Attends buddhism service: More than 4 times per year [...] morbidity or mortal ity cardiac cath at [facility] approx 6-8 months ago Other unknown [...] past 8 hrs: BP Temp Pulse Resp TlR133/02/11 0754 120/60 97.2 F (36.2 C) 70 20 95 %MENTA L STATUS EXAM:FINDINGS WITHIN NORMAL LIMITS (WNL) UNLESS OTHERWISE STATED BELOW:Sens orium [id number] Well relatedAppearance: OverweightMotor Behavior: Not examined Speech: [...] Supporting Document(s ) ID Date Data Source [id number] 10/31/2019 04:37:18 PM EDT [facility] - [place] [address] [address]GEOXKMP: MAXWELL BRAYMRN: [id number]: [id number]#: [id number] DATE: 10/29/2019 CONSULTATIONHISTORY OF PRESENT ILLNESS: The [...] and Klonopin.PAST MEDICAL HISTORY: Cardiac cath at [facility] six to eight months ago, concussions,periodic [...] RONAL AGUIRRE, MDDD: 10/30/2019 14:44:41/BR /[id number] / [id number] Name Value Range Interpretation Code Description Data Melani rce(s) Supporting Document(s ) ID Date Data Source [id number] 10/31/2019 01:47:36 PM EDT [facility] General Daily Progress NoteAdmit Date: Hospital [...] Supporting Document(s ) ID Date Data Source [id number] 10/31/2019 12:59:26 PM EDT [facility] - [facility] physical Therapy TREATMENTPatient: Maxwell Bray (49 [...] Supporting Document(s ) ID Date Data Source [id number] 10/31/2019 07:10:46 AM EDT [facility] Bedside and Verbal shift change report g yesseniaen to Samy UGALDE (oncoming nurse)by Cristofer Valenzuela RN (offgoing nurse). Repo rt included the following information SBAR, Kardex, MARand Recent Results. Name Value Range Interpretation Code Description Data [facility] rce(s) Supporting Document(s ) ID Date Data Source [id number] 10/30/2019 11:27:14 PM EDT [facility] Problem: Falls - Risk ofGoal: *Absence o [...] Supporting Document(s ) ID Date Data Source [id number] 10/30/2019 08:09:55 PM EDT [facility] Susi Garcia called as pt has been [...] be ordered as non formulary also At [facility] Name Value Range Interpretation Code Description Data [facility] rce(s) Supporting Document(s ) ID Date Data Source [id number] 10/30/2019 08:06:30 PM EDT [facility] Telephoned Dr. Oc tompkins pt's c/o new sy mptoms of hallucinations. Orderedreceived, relayed to RN, SUSI Marroquin on scene shifter Name Value Range Interpretation Code Description Data [facility] Supporting Document(s ) ID Date Data Source [id number] 10/30/2019 08:01:35 PM EDT [facility] Verbal shift change report given to Cecilia wells (oncoming nurse) by Samy Albert RN (offgoing nurse). Report included the fo llowing information SBAR, ProcedureSummary, Intake/Output, MAR and Recent Results. Name Value Range Interpretation Code Description Data [facility](s) Supporting Document(s ) ID Date Data Source [id number] 10/30/2019 02:58:51 PM EDT [facility] Problem: Mobility Impaired (Adult and Pe diatric)Goal: [...] of morbidity or mortality cardiac cath at [facility] approx 6-8 months ago Other unknown [...] Home: NoneCritical Behavior:Neurologic State: AlertOrientation Level: Oriented W9Tiguucvje: Appropriate for age attention/concentrationSafety/Judgement: Awareness of environmentSkin:Strength:Strength: [...] Supporting Document(s ) ID Date Data Source [id number] 10/30/2019 02:50:37 PM EDT [facility] Telehealth ConsultationPursuant to the e mergency [...] [] Telephone [] VideoconferenceSubjective:Patient: Maxwell BrayMRN #: [id number]: [id number]: 49 y.o. Sex: maleAdm it Date: 10/29/2019Attending: [...] Supporting Document(s ) ID Date Data Source [id number] 10/30/2019 02:06:26 PM EDT [facility] Care Management InterventionsPCP Verifie d by CM: YesPalliative Care Criteria Met (RRAT>21 & CHF Dx)?: NoMode of Transport at Discharge: Other (see comment)(family)Transition of Care Consu lt (CM Consult): Discharge PlanningPhysical Therapy Consult: NoOccupational Therapy Consult: NoSpeech Therapy Consult: NoCurrent Support Network: Lives with Spouse, Own Home( [place]anca [phone],f-[phone])Confirm Foll ow Up Transport: FamilyThe Patient and/or Patient Pet Training Instructor was Provided with a Choice of Providerand [...] home with his , is completely independent SR. PRICING ANALYST, nohome DME. Patient normally works (pre-covid) and drives. CM dept roleexplained, patient is currently denying any HC or rehab needs and states hiswife will drive him home upon DC. PT eval is ordered and pending. CM dept laila lfollow if patient has any PT needs.CASE MANAGEMENT PSYCHOSOCIAL ASSESSMENTMaxwell Bray Admission Date: 10/29/2019MRN: [id number] of : 1970Current date: 10/30/2019DISCHARGE PLAN: homePatient Info rmation:Patients Preferred Name: brianPatient Arrived Via: StretcherTransferred from a [facility] facility: NoInformation Obtained From: PatientPatient Objects to Receiving Bloo d: NoMRSA Assessment: Not applicableAuditory Impairment: NoneRetired Read Only-Readmi t Risk ToolSupport Systems: Family member(s)History of Falls Within Past 3 Months: NoNeeds Assistance with Wound Care AND/OR Mgnt of O2, Nebulizer: NoRequires Financial, Physical and/or Educational Assistance With Medications: NoHistory o f Mental Illness: NoLiving Alone: NoPCP: Ritika Canas MDAdmitting Provider: Cristi Canas MDSPOTSYLVAN[facility] INCHOMECARE SR. PRICING ANALYST: naPayor: Payor: [facility] HEALTH [facility] / Plan: [facility] HEALTH PLAN /Product Type: O /SMS [employer] [facility] Payor: @SkillsetNAME@Bipolar disorder with severe depression (HCC) [F 31.4]Bipolar [...] solving and planning: Notes:Adeq uate coping skills: Notes:Mandaen/Cultural barriers: Notes:If unable to assess or n ot applicable: Notes:Suicide Assessment:Primary Diagnosis or Primary Complaint of an Emotional Behavior Disorder: NoPatient is Currently Experiencing Depr ession: NoSuicidal Ideation/Attempts: NoHomicidal Ideation/Attempts: NoAlcohol /Drug Intoxication: NoHallucinations/Delusions: NoPending, A ctive, or Temporary Fci Orders: NoAggressive/Inappropriate Behavior: NoR eadmit Risk:Support Systems: Family member(s)Advanced Care Planning:Confirm Advance Directive: NoneDiscussed with the patient and all questions fully answered . He will call me ifany problems arise. Name Value Range Interpretation Code Description Data Melani rce(s) Supporting Document(s ) ID Date Data Source [id number] 10/30/2019 12:38:13 PM EDT [facility] Daily Progress NoteAdmit Date: Hospital day: .tdSubjective:Patient markedly improved this am, speech now no rmal. Denies possibleinadvertent overdose of chronic meds. Accepting of psych consult . PT toevaluate. Claims symptoms of mild nausea. Meds reviewed claims to be takin gElavil G 150 mg HS ,Klonopin 1 mg twice a day, Rouse 300 twice daily, Vraylar3 m g dailyCurrent [...] past 8 hrs: BP Temp Pulse Resp GbK82010/30/19 0727 (!) 130/96 98 F (36.7 C) [...] Name Value Range Interpretation Code Description Data [facility] rce(s) Supporting Document(s ) ID Date Data Source [id number] 10/30/2019 07:52:05 AM EDT [facility] Verbal shift change report given to Chandrakant rosa RN (oncoming nurse) Tavares UGALDE (offgoing nurse). Report included the fo llowing information SBAR,Kardex, Procedure Summary, Intake/Output, MAR and Recent R esults. Name Value Range Interpretation Code Description Data [facility] rce(s) Supporting Document(s ) ID Date Data Source [id number] 10/30/2019 06:40:05 AM EDT [facility] Pt. AOX3, periodic confusion. Commode an d urinal at bedside. Seizure and fallprecaution measures in place. Voice s no complaint during shift . Name Value Range Interpretation Code Description Data [facility] rce(s) Supporting Document(s ) ID Date Data Source [id number] 10/30/2019 07:29:12 AM EDT [facility] Name Value Range Interpretation Description Data Sup porting Code Source(s) Document(s ) Sodium 139 136-145 [facility] - Good [Moles/volume] mmol/L [facility] in Serum or Hospital Plasma Potassium 3.6 3.5-5.1 [facility] - [facility] [Moles/volume] mmol/L [facility] in Serum or Hospital Plasma Chloride 110 98-107 Above high normal [facility] - [facility] [Moles/volume] mmol/L [facility] in Serum or Hospital Plasma Carbon 24 21-32 [facility] dioxide, total mmol/L [facility] [Moles/volume] Hospital in Serum or Plasma Anion gap in 9 mmol/L 10-20 Below low normal [facility] - Go od Serum or [facility] Plasma Hospital Glucose 96 mg/dL 74-106 [facility] [Mass/volume] [facility] in Serum or Hospital Plasma Urea nitrogen 10 mg/dL 7-18 [facility] [Mass/volume] [facility] in Serum or Hospital Plasma Creatinine 0.81 0.70-1.3 [facility] [Mass/volume] mg/dL 0 [facility] in Serum or Hospital Plasma Glomerular >60 [facility] - Good filtration [facility] rate/1.73 sq M Hospital predicted among blacks [Volume Rate/Area] in Serum or Plasma by Creatinine-bas ed formula (MDRD) Glomerular >60 [facility] - Good filtration [facility] rate/1.73 sq M Hospital predicted among non-blacks [Volume Rate/Area] in Serum or Plasma by Creatinine-bas ed formula (MDRD) Calcium 8.2 8.5-10.1 Below low normal [facility] - Good [Mass/volume] mg/dL [facility] in Serum or Hospital Plasma ID Date Data Source [id number] 10/30/2019 07:05:07 AM EDT [facility] Name Value Range Interpretation Description Data Sup porting Code Source(s) Document(s ) Leukocytes 4.8 K/uL 4.8-10.6 [facility] - [#/volume] in Good Blood by [facility] Automated count [facility] Erythrocytes 4.59 4.70-6.0 Below low normal [facility] - [#/volume] in M/uL 0 Good Blood by [facility] Automated count [facility] Hemoglobin 14.0 14.0-18. [facility] - [Mass/volume] in g/dL 0 Good Blood [facility] Hematocrit 42.7 % 42.0-52. [facility] - [Volume 0 Good Fraction] of [facility] Blood by [facility] Automated count Erythrocyte mean 93.0 FL 81.0-94. [facility] - corpuscular 0 Good volume [Entitic [facility] volume] by [facility] Automated count Erythrocyte mean 30.5 PG 27.0-35. [facility] - corpuscular 0 Good hemoglobin [facility] [Entitic mass] Hospital by Automated count Erythrocyte mean 32.8 30.7-37. [facility] - corpuscular g/dL 3 Good hemoglobin [facility] [Mass/volume] by Automated count Erythrocyte 13.3 % 11.5-14. [facility] - distribution 0 Good width [Ratio] by [facility] Automated count Hospital Platelets 159 K/uL 130-400 [facility] - [#/volume] in Good Blood by [facility] Automated count Hospital Platelet mean 8.6 FL 9.2-11.8 Below low normal [facility] - volume [Entitic Good volume] in Blood [facility] by Automated Hospital count Nucleated 0.0 PER 0 [facility] - erythrocytes/100 100 WBC Good leukocytes [facility] [Ratio] in Blood [facility] Nucleated 0.00 0.0-0.01 [facility] - erythrocytes K/uL Good [#/volume] in [facility] Segmented 54 % 48.0-72. [facility] - neutrophils/100 0 Good leukocytes in [facility] Lymphocytes/100 32 % 18.0-40. [facility] - leukocytes in 0 [facility] Blood [facility] Monocytes/100 9 % 2.0-12.0 [facility] - leukocytes in [facility] Blood [facility] Eosinophils/100 5 % 0.0-7.0 [facility] - leukocytes in [facility] Basophils/100 1 % 0.0-3.0 [facility] - leukocytes in [facility] Immature 0 % 0-0.5 [facility] - granulocytes/100 Good leukocytes in [facility] Automated count Segmented 2.6 K/UL 2.3-7.6 [facility] - neutrophils Good [#/volume] in [facility] Lymphocytes 1.5 K/UL 0.9-4.2 [facility] - [#/volume] in [facility] Blood [facility] Monocytes 0.4 K/UL 0.1-1.7 [facility] - [#/volume] in [facility] Eosinophils 0.2 K/UL 0.0-1.0 [facility] - [#/volume] in [facility] Basophils 0.0 K/UL 0.0-0.4 [facility] - [#/volume] in [facility] Immature 0.0 K/UL 0.0-0.17 [facility] - granulocytes Good [#/volume] in [facility] Blood by [facility] Automated count Differential [facility] - cell count Good method - Blood [facility] ID Date Data Source [id number] 10/29/2019 07:40:21 PM EDT [facility] Verbal shift change report given to Wai rogers RN(oncoming nurse) by Elizabeth Meehan RN (offgoing nurse). Report included the fo llowing information SBAR, Kardex, EDSummary, Intake/Output, MAR and Recent Results. Name Value Range Interpretation Code Description Data Melani rce(s) Supporting Document(s ) ID Date Data Source [id number] 10/30/2019 06:54:22 PM EDT [facility] Name Value Range Interpretation Description Data Sup porting Code Source(s) Document(s ) Color of Urine YEL [facility] - [facility] Appearance of CLEAR [facility] - Urine [facility] Specific gravity 1.015 1.003-1. [facility] - of Urine by 030 Good Refractometry [facility] pH of Urine by 6.0 4.6-8.0 [facility] - Test strip [facility] Protein NEG [facility] - [Mass/volume] in Good Urine by Test [facility] Glucose NEG [facility] - [Mass/volume] in Good Urine by [facility] Automated test [facility] strip Ketones NEG [facility] - [Presence] in Good Urine by [facility] Automated test [facility] strip Bilirubin.total NEG [facility] - [Presence] in Good Urine [facility] Hemoglobin NEG [facility] - [Presence] in Good Urine by [facility] Urobilinogen 1.0 0.2-1.0 [facility] - [Presence] in EU/dL Good Urine by [facility] Automated test Hospital strip Nitrite NEG [facility] - [Presence] in Good Urine by [facility] Automated test [facility] strip Leukocyte NEG [facility] - esterase Good [Presence] in [facility] Urine by Hospital Automated test strip ID Date Data Source [id number] 10/29/2019 06:14:12 PM EDT [facility] Spoke with to clarify meds..correct doses obtained Name Value Range Interpretation Code Description Data Melani rce(s) Supporting Document(s ) ID Date Data Source [id number] 10/29/2019 06:01:22 PM EDT [facility] Pt unsure of dose of Vraylar will call w berta Name Value Range Interpretation Code Description Data Melani rce(s) Supporting Document(s ) ID Date Data Source [id number] 10/29/2019 03:56:40 PM EDT [facility] [id number] [facility] [address] [facility] [place] [facility] [address] [place] [address] [phone]/12/12 Maxwell Bray (Male) [id number] ES I 2 ED Dispo:ADMIT Chief Complaint: Dysarthria, Lethargy Diagnosis: Altered mental status, unspecified altered mental statu s type [] Bipolar disorder with severe depression (HCC) [] Current Providers: Att ending: Cole Ernandez; Cristi Canas Consulting Provider: Cristi Canas Primary Nurse: Kristy Moss Tech: HERMANN GoznalesN: [id number] [employer] [phone] - Bs hsi [employer] MrnMRN: [id number] [employer] [phone] - Bshsi [employer] Age Sex 1970 AGE 49 SEX Male Primary Care Provider: Ritika Canas MD Hqbapvgbh: (No Kn own Allergies)Date Reviewed: 10/29/2019Reviewed by: Ritika Canas MD - Review CompleteED Provider Notes: All no tesO ID: [id number]: Cristobal Ernandez MDService: -Author Type: PhysicianFiled: 10/29/19 [...] of morbidity or mortality cardiac cath at [facility] approx 6-8 months ago Other unknown [...] week Gets together: Once a week Attends buddhism service: More than 4 times per year [...] QTC Calculation (Bezet) 446 ms Calculated P [place] 53 degrees Calc ulated R [place] 68 degrees Calculated T [place] 0 degrees Diagnosis Sinus tachycardiaProlonged NH intervalNo nspecific intraventricular conduction delayCBC WITH AUTOMATED [...] Time: 10/29/19 10:45 AMResult Value Ref Range Rouse level <0.20 (L) 0.6 - 1.2 MMOL/L [...] contrast. Sagittal and coronalreconstruction was performed. Utilizing mapping editor algorithm theexaminationwas performed to optimize imaging quality [...] status, unspecified altered menta l status type [id number] condition at time of disposition: StableI have [...] d thediagnostic studies, unless otherwise noted.+ED Orders [id number] CBC WITH AUTOMATED DIFF [# [id number]] Priority: STAT Class: ER Collect Standing Order Information Remaining Occurrences:0 /1 Interval:ONE TIME Last released:10/29/2019 Released orders: SunOctober 29, 2019 11:02 AM by: CRISTOBAL ERNANDEZ [id number] METABOLIC PANEL, COMPREHENSIVE [#[id number]] Bridgette ority: STAT Class: ER Collect Standing Order Information Remaining Occurrences:0/1 Inter haile:ONE TIME Last released:10/29/2019 Released orders: SunOctober 29, 2019 11:02 AM by: CRISTOBAL WADE [id number] PROTHROMBIN TIME + INR [#[id number]] Priority: STAT Class: E R Collect Standing Order Information Remaining Occurrences:0/1 Interval:ONE TI ME Last released:10/29/2019 Released orders: SunOctober 29, 2019 11:02 AM by: BRIE ERNANDEZ [id number] PTT [#[id number]] Priority: STAT Class: ER Collect Speci men Source: Blood Standing Order Information Remaining Occurrences:0/1 Interval:ONE TI ME Last released:10/29/2019 Released orders: SunOctober 29, 2019 11:02 AM by: BRIE ERNANDEZ EN [id number] URINALYSIS W/ RFLX MICROSCOPIC [#[id number]] Priority: STAT Class: ER Collect Sta nding Order Information Remaining Occurrences:0/1 Interval:ONE TIME Last released:0 10/29/2019 Released orders: SunOctober 29, 2019 11:02 AM by: CRISTOBAL ERNANDEZ [id number] LITHIUM [#[id number]] Priority: STAT Class: ER Collect Standing Order Information Remaining Occurrences:0/1 Interval:ONE TIME Last released:10/29/2019 Released orders : SunOctober 29, 2019 11:02 AM by: CRISTOBAL ERNANDEZ [id number] CBC WITH AUTOMATED DIFF [# [id number]] Priority: STAT Class: ER Collect Specimen Source: Whole Blood Specimen Collected: 020 10:45 AM Resulting Agency: [facility] Test ID: CBCXA Released on: 0 11:02 AM [id number] METABOLIC PANEL, COMPREHENSIVE [#[id number]] Priority: STAT Class: E R Collect Specimen Source: Plasma Specimen Collected: 10/29/2019 10:45 AM Resulting Agency: [facility] Test ID: MPL Released on: 10/29/2019 11:02 AM [id number] PROTHROMBIN TIME + IN R [#[id number]] Priority: STAT Class: ER Collect Specimen Source: Plasma Specimen Collec hyun: 10/29/2019 10:45 AM Resulting Agency: [facility] Test ID: APTHR Released o n: 10/29/2019 11:02 AM [id number] PTT [#[id number]] Priority: STAT Class: ER Collect Specimen Source: Plasma Specimen Collected: 10/29/2019 10:45 AM Resulting Agency: [facility] Test ID: APTT Released on: 10/29/2019 11:02 AM [id number] URINALYSIS W/ RFLX SD CROSCOPIC [#[id number]] Priority: STAT Class: ER Collect Resulting Agency: [facility] Test ID: UA Released on: 10/29/2019 11:02 AM [id number] LITHIUM [#[id number]] Priority: STAT Class: ER Collect Specimen Source: Serum Specimen Collected: 10/28 10:45 AM Resulting Agency: [facility] Test ID: LI Released on: 10/29/2019 11:02 AM [id number] CBC WITH AUTOMATED DIFF [#[id number]] Priority: STAT Class: E R Collect Standing Order Information Remaining Occurrences:06/25 Interval:TOMORR OW AM [id number] METABOLIC PANEL, BASIC [#[id number]] Priority: STAT Class: ER Collect St anding Order Information Remaining Occurrences:06/25 Interval:TOMORROW AM [id number] CT HEAD W O CONT [#[id number]] Priority: Routine Class: Hospital Performed Standing Or mariano Information Remaining Occurrences:0/1 Interval:ONE TIME Last released:10/29/2019 Released orders: SunOctober 29, 2019 11:02 AM by: CRISTOBAL ERNANDEZ Reason for Exam -> ams IMG 2590 XR CHEST PORT [#[id number]] Priority: STAT Class: Hospital Performe d Standing Order Information Remaining Occurrences:0/1 Interval:ONE TIME Last release d:10/29/2019 Released orders: SunOctober 29, 2019 11:02 AM by: CRISTOBAL ERNANDEZ Reason for Exam -> ams [id number] CT HEAD WO CONT [#[id number]] Priority: STAT Class: Hospital Perfo rmed Specimen Collected: 10/29/2019 11:54 AM Resulting Agency: [facility] Test ID: [id number] [place] son for Exam -> ams Released on: 10/29/2019 11:02 AM [id number] XR CHEST PORT [#[id number]] Priority: STAT Class: Hospital Performed Specimen Collected: 10/29/2019 12:16 PM Resultin g Agency: [facility] Test ID: [id number] Reason for Exam -> ams Released on: 10/29/2019 11:02 AM [id number] EKG, 12 LEAD, INITIAL [#[id number]] Priority: STAT Class: Hospital Performe d Standing Order Information Remaining Occurrences:0/1 Interval:ONE TIME Last release d:10/29/2019 Released orders: SunOctober 29, 2019 11:02 AM by: CRISTOBAL ERNANDEZ Reason for Exam : -> chest pain [id number] EKG, 12 LEAD, INITIAL [#[id number]] Priority: STAT Class: H ospital Performed Resulting Agency: [facility] Test ID: [id number] Reason for Exam: -> chest pain Releas ed on: 10/29/2019 11:02 AM [id number] POC GLUCOSE [#[id number]] Priority: STAT Cl ass: Hospital Performed Standing Order Information Remaining Occurrences:0/1 Interval:ONE TI ME Last released:10/29/2019 Released orders: SunOctober 29, 2019 11:02 AM by: BRIE ERNANDEZ EN [id number] POC GLUCOSE [#[id number]] Priority: STAT Class: Hospital Performe d Released on: 10/29/2019 11:02 AM [id number] VITAL SIGNS PER UNIT ROUTINE [#[id number]] Priorit y: STAT Class: Hospital Performed Standing Order Information Remaining Occurrences:0/1 Inte rval:CONTINUOUS Last released:10/29/2019 Released orders: SunOctober 29, 2019 2:54 PM by: RITIKA CANAS Comment:More frequently if Indicated. [id number] BEDREST, COMPLETE [#[id number]] Priority: STAT Class: Hospital Performed Standing Order Information Remainin g Occurrences:0/1 Interval:CONTINUOUS Last released:10/29/2019 Released orders : SunOctober 29, 2019 2:54 PM by: RITIKA CANAS [id number] NOTIFY PROVIDER: VITAL SIGNS CHANGES [# [id number]] Priority: STAT Class: Hospital Performed Standing Order [...] Less than 120 ml in 4 hours ILL2553 APPLY/MAINTAIN SEQUENTIAL COMPRESSIO* [#[id number]] Priority: ST AT Class: Hospital Performed Standing Order Information Remaining Occurrences:0/1 Inter haile:CONTINUOUS Last released:10/29/2019 Released orders: SunOctober 29, 2019 2:54 PM by: RITIKA CANAS [id number] VITAL SIGNS PER UNIT ROUTINE [#[id number]] Priority: STAT Class: H ospital Performed Comment:More frequently if Indicated. Released on: 10/29/2019 2:54 PM KGF200 4 BEDREST, COMPLETE [#[id number]] Priority: STAT Class: Hospital Performed Relea sed on: 10/29/2019 2:54 PM [id number] NOTIFY PROVIDER: VITAL SIGNS CHANGES [#[id number]] Priority: STAT Class: Hospital Performed Temp -> [...] carmen rs Released on: 10/29/2019 2:54 PM [id number] APPLY/MAINTAIN SEQUENTIAL COMPRESSIO* [#[id number]] P riority: STAT Class: Hospital Performed Released on: 10/29/2019 2:54 PM SODIUM CHLORIDE 0.9 % IJ SYRG [#[id number]] Priority: STAT Class: Normal SODIUM CHLORIDE 0.9 % IJ SYRG [#[id number]] Priority: STAT Class: Normal ACETAMINOPHEN 325 MG TABLET [# [id number]] Priority: STAT Class: Normal ENOXAPARIN 40 MG/0.4 ML SUB-Q SYRINGE [#[id number]] Priority: STAT Class: Normal SODIUM CHLORIDE 0.9 % IV [#[id number]] Priority: STAT Class: Normal [id number] GLUCOSE, POC [#[id number]] Priority: Routine Class : ER Collect Resulting Agency: [facility] Test ID: BGG Standing Order Informati on Remaining Occurrences:0/1 Released orders: SunOctober 29, 2019 11:26 AM by: [facility] Process [id number] GLUCOSE, POC [#[id number]] Priority: Routine Class : ER Collect Specimen Source: Whole Blood Specimen Collected: 10/29/2019 11:26 AM Resulting Agency: [facility] Test ID: BGG Released on: 10/29/2019 11:26 AM [id number] IP CONSULT TO PRIMARY CARE PROVIDER [#[id number]] Priority: STAT Class: Hospital Performed Standing Order Inf ormation Remaining Occurrences:0/1 Interval:ONE TIME Last released:10/29/2019 Relea sed orders: SunOctober 29, 2019 12:59 PM by: CRISTOBAL ERNANDEZ Reason for Consult: -> admit Did you call or speak to the consulting provider? -> No Consult To -> dr canas [id number] IP CONSULT TO PRIMAR CARE PROVIDER [#[id number]] Priority: STAT Class: Hospital Performed Reason for Consult: -> ad rei Did you call or speak to the consulting provider? -> No Consult To -> dr canas Released on: 12:59 PM CON53 IP CONSULT TO PSYCHIATRY [#[id number]] Priority: STAT Class: H ospital Performed Standing [...] -> TODAY CON53 IP CONSULT TO PSYCHIATRY [#[id number]] Priority: STAT Class: Hospital Performed Reason for Consult: -> 49 yo male with severe bipolar diseas e, admitted with slurred speech, severe weakness Did you call or speak to t he consulting provider? -> No Consult To -> Dr Aguirre Schedule When? -> TODAY Released on: 10/29/2019 2:54 PM [id number] INITIAL PHYSICIAN ORDER: INPATIENT [#[id number]] Priority: Routine Class : ADT Pend Transfer [...] CANAS Estimated Length of Stay -> 3-4 [facility] Discharge Plan: -> Home with Office Follow-up [id number] INITIAL PHYSICIAN ORDER: INPATIENT [# [id number]] Priority: Routine Class: ADT Pend Transfer Status: [...] Foll ow-up Released on: 10/29/2019 2:43 PM [id number] INITIAL PHYSICIAN ORDER: INPATIENT [#[id number]] Priority: Routine Class: ADT Pend Transfer Standing Order Information Remaining Occurrences:0 Interval:ONE TIME Last released:10/29/2019 Released orders: SunOctober 29, 2019 2:54 PM by: RITIKA CANAS Status: -> INPATIENT Inpatient Hospitalization Certified [facility] for the Following Reasons -> 3- [...] 3-4 Midnights Discharge Plan: -> Other (Specify) [id number] INITIAL PHYSIC JOSE ORDER: INPATIENT [#[id number]] Priority: Routine Class: ADT Pend Transfer Status: [...] 2:54 PM IVT3 INSERT PERIPHERAL IV [# [id number]] Priority: STAT Class: Hospital Performed Standing Order Information Remaining Occurre nces:0/1 Interval:ONE TIME Last released:10/29/2019 Released orders: SunOctober 28, 2:54 PM by: RITIKA CANAS IVT3 INSERT PERIPHERAL IV [#[id number]] Priority: ST AT Class: Hospital Performed Released on: 10/29/2019 2:54 PM CON75 IP CONSULT TO PHYSICAL THERAPY [#[id number]] Priority: STAT Class: Hospital Performed Standing Order Information Remainin g Occurrences:14/15 Interval:DAILY Last released:10/29/2019 Released orders : SunOctober 29, 2019 2:54 PM by: RITIKA CANAS CON75 IP CONSULT TO PHYSICAL THERAPY [#[id number]] Priority: STAT Class: Hospital Performed Released on: 10/29/2019 2:54 PM COD2 FULL CODE [#[id number]] Priority: STAT Class: Hospital Performed Standing Order Inf ormation Remaining Occurrences:0/1 Interval:CONTINUOUS Last released:10/29/2019 Rel eased orders: SunOctober 29, 2019 2:54 PM by: RITIKA CANAS COD2 FULL CODE [#[id number]] Priority: STAT Class: Hospital Performed Released on: 10/29/2019 2:54 PM DIET10 4 DIET FULL LIQUID [#[id number]] Priority: STAT Class: Hospital Performed Stand ing Order Information Remaining Occurrences:0/1 Interval:DIET EFFECTIVE NOW Last released:10/29/2019 Released orders: SunOctober 29, 2019 2:54 PM by: RITIKA CANAS Comment:A dvance as tolerated to regular diet [id number] DIET FULL LIQUID [#[id number]] Priority: STAT Class: Hospital Performed Comment:Advance as tolerated to regular diet Released on: 10/29/2019 2:54 Maxwell Corona MR#: [id number] * Rm: [id number]: 5' 7" Wt: 3 00 lb Code: Full Code Iso:Diagnosis:Bipolar disorder with severe depression (HCC) [F31.4]Allergies : No Known Allergies -------- Current as of: 10/29/19 1556 ---aspirin (ASPIRIN) tablet 325 mg #[id number] Admin Amount: 1 Tab (1 x 325 mg Tab) Ordered Dose: 325 mg Route: Oral Freq: ONCE Start Date: 12/24/13 No administration times (back 96 hours, ahead 96 hours). ------diphenhydrAMINE (BENADRYL) capsule 50 mg #[id number] Admin Amount: 1 Cap (1 x 50 mg Cap) Ordered Dose: 50 mg [place]: Oral Freq: NOW Start Date: 12/24/13 No administration times (back 96 hours, ahe ad 96 hours). ------diazepam (VALIUM) tablet 5 mg #[id number] Admin Amount: 1 Tab (1 x 5 mg Tab) Ordered Dose: 5 mg Route: Ora l Freq: ONCE Start Date: 12/24/13 No administration times (back 96 hours, e ad 96 hours). ------lidocaine (XYLOCAINE) 10 mg/mL (1 %) injection 1-30 mL #[id number] Admin Amount: 1-30 mL Ordered Dose: 1-30 mL Route: IntraDERMal Freq: ONC E Start Date: 12/24/13 No administration times (back 96 hours, ahead 96 hours). ------heparin (PF) 2 units/ml in NS infusion 2,000 Units #[id number] Admin Amount: 1,000 mL = 2,000 Units of 2 Units/mL Ordered Dose: 1,000 mL Route: Irrigation Freq: ONCE Start Date: 12/24/13 No administration times (b ack 96 hours, ahead 96 hours). ------heparinized saline 2 units/mL infusion 1,000 Units #[id number] Admin Amount: 500 mL = 1,000 Units of 2 Units/mL Ordered Dose: 500 mL R oute: IntraarTERial Freq: ONCE Start Date: 12/24/13 No administration times (back 96 hours, ahead 96 hours). ------0.9% sodium chloride infusion #[id number] Ordered Dose: 75 mL/hr Route: IntraVENous Freq: CONTINUOUS Start Date: 12/24/13 Rate: 75 mL/hr Duration: No administration times (back 96 hours, ahead 96 hours). ------ioversol (OPTIRAY) 320 mg iodine/mL contrast injection 1-100 mL #[id number] Admin Amount: 1-100 mL Ordered Dose: 1-100 mL Route: IntraVENous Freq: RAD ONCE Start Date: 12/24/13 No administration times (back 96 hours, ahead 96 hours).Maxwell Bray MR#: [id number] * Rm: [phone]: 5' 7" Wt: 300 lb Code: Full Code Iso:Diagnosis:Bipolar disorder with severe depression ([facility]) [F31.4]Allergies: No Kn own Allergies -------- Current as of: 10/29/19 1556 ---gadobutrol (GADAVIST) contrast solution 1-10 mL #[id number] Admin Amount: 1-10 mL Ordered Dose: 1-10 mL Route: IntraVENo us Freq: RAD ONCE Start Date: 01/13/14 No administration times (back 96 hours, ahe ad 96 hours). ------sodium chloride (NS) flush 5-10 mL #[id number] Admin Amount: 5-10 mL Ordered Dose: 5-10 mL Route: IntraVENous Freq: RA D ONCE Start Date: 01/13/14 No administration times (back 96 hours, ahead 96 hours). ------sodium chloride (NS) 0.9 % flush #[id number] Ordered Dose: Route: Freq: Start D ate: 01/13/14 No administration times (back 96 hours, ahead 96 hours). ------morphine injection 2 mg #[id number] Admin Amount: 1 mL = 2 mg of 2 mg/mL Ordered Dose: 2 mg Route: Int raVENous Freq: NOW Start Date: 03/13/15 No administration times (back 96 hours, ahe ad 96 hours). ------influenza vaccine (4 yr+)(PF) (FLUCELVAX QUAD) inj ection 0.5*#[id number] Admin Amount: 0.5 mL Ordered Dose: 0.5 mL Route: IntraMUSCular Freq : PRIOR TO DISCHARGE Start Date: 03/30/16 No administration times (back 96 hours, ahead 96 hours). ------oxyCODONE-acetaminophe n (PERCOCET) 5-325 mg per tablet 1 Tab #[id number] Admin Amount: 1 Tab Ordered Dose: 1 Tab Route: Oral Freq: NOW Start Date: 09/07/17 No administration times (back 96 hours, ahead 96 hours). ------barium sulfate (READICAT) 2.1 % (w/v), 2.0 % (w /w) oral suspension 9*#[id number] Admin Amount: 900 mL Ordered Dose: 900 mL Route: Ora l Freq: RAD ONCE Start Date: 10/15/17 No administration times (back 96 hours, ahe ad 96 hours). ------iopamidol (ISOVUE 300) 61 % contrast injection 100 mL #[id number] Admin Amount: 100 mL Ordered Dose: 100 mL Route: IntraVENous Freq: RAD O NCE Start Date: 10/15/17 No administration times (back 96 hours, ahead 96 hours).Maxwell Bray MR#: [id number] * Rm: [id number]: 5' 7" Wt: 300 lb Cod e: Full Code Iso:Diagnosis:Bipolar disorder with severe depression ([facility]) [F31.4]Allergies: No Kn own Allergies -------- Current as of: 10/29/19 1556 ---risperiDONE (RisperDAL m-tabs) disintegrating tablet 1 mg #[id number] Admin Amount: 1 Tab (1 x 1 mg Tab) Ordered Dose: 1 mg [place]: Oral Freq: ONCE Start Date: 12/24/17 No administration times (back 96 hours, ahe ad 96 hours). ------ALPRAZolam (XANAX) tablet 2 mg #[id number] Admin Amount: 4 Tab (4 x 0.5 mg Tab) Ordered Dose: 2 mg Route: Ora l Freq: NOW Start Date: 12/24/17 No administration times (back 96 hours, e ad 96 hours). ------lamoTRIgine (LaMICtal) tablet 100 mg #[id number] Admin Amount: 1 Tab (1 x 100 mg Tab) Ordered Dose: 100 mg Route: Ora l Freq: ONCE Start Date: 12/24/17 No administration times (back 96 hours, e ad 96 hours). ------OLANZapine (ZyPREXA zydis) disintegrating tablet 5 mg #[id number] Admin Amount: 1 Tab (1 x 5 mg Tab) Ordered Dose: 5 mg Route: Ora l Freq: ONCE Start Date: 12/25/17 No administration times (back 96 hours, e ad 96 hours). ------LORazepam (ATIVAN) tablet 2 mg #[id number] Admin Amount: 4 Tab (4 x 0.5 mg Tab) Ordered Dose: 2 mg Route: Ora l Freq: NOW Start Date: 12/25/17 No administration times (back 96 hours, ahe ad 96 hours). ------LORazepam (ATIVAN) injection 1 mg #[id number] Admin Amount: 0.5 mL = 1 mg of 2 mg/mL Ordered Dose: 1 mg [place]: IntraVENous Freq: NOW Start Date: 12/25/17 No administration times (back 96 hours, ahead 96 hours). ------barium sulfate (EZ PAQUE) 96 % (w/w) contrast suspension 17 6 g #[id number] Admin Amount: 176 g Ordered Dose: 176 g Route: Oral Freq: RAD ONCE Start Date: 08/02/18 No administration times (back 96 hours, ahead 96 hours). ------barium sulfate (EZ PAQUE) 96 % (w/w) contrast suspension 17 6 g #[id number] Admin Amount: 176 g Ordered Dose: 176 g Route: Oral Freq: RAD ONCE Start Date: 08/02/18 No administration times (back 96 hours, ahead 96 hours).Maxwell Bray MR#: [id number] * Rm: [id number]: 5' 7" Wt: 300 lb Code: Full Co de Iso:Diagnosis:Bipolar disorder with severe depression ([facility]) [F31.4]Allergies: No Known Allergies -------- Current as of: 10/29/19 1556 ---aspirin chewable tablet 162 mg #[id number] Admin Amount: 2 Tab (2 x 81 mg Tab) Ordered Dose: 162 mg Route: Ora l Freq: NOW Start Date: 08/10/19 No administration times (back 96 hours, ahe ad 96 hours). ------0.9% sodium chloride infusion 1,000 mL #[id number] Admin Amount: 1,000 mL Ordered Dose: 1,000 mL Route: IntraVENous Freq: O NCE Start Date: 08/16/19 Rate: 1,000 mL/hr Duration: No administratio n times (back 96 hours, ahead 96 hours). ------methylPREDNISolone (PF) (Solu-MEDROL) injection 125 mg #[id number] Admin Amount: 2 mL = 125 mg of 125 mg/2 mL Ordered Dose: 125 mg [place]: IntraVENous Freq: NOW Start Date: 08/16/19 No administration times (back 9 6 hours, ahead 96 hours). ------aspirin chewable tablet 162 mg #[id number] Admin Amount: 2 Tab (2 x 81 mg Tab) Ordered Dose: 162 mg Route: Ora l Freq: NOW Start Date: 08/16/19 No administration times (back 96 hours, ahe ad 96 hours). ------sodium chloride (NS) flush 5-40 mL #[id number] Admin Amount: 5-40 mL Ordered Dose: 5-40 mL Route: IntraVENous Freq: EV AN 8 HOURS Start Date: 10/29/19 Administration times (back 96 hours, ahead 96 hours): : 1400 2200 10/30/19: 0600 1400 219910/31/19: 599 1400 219911/01/19: 599 1400 219911/02/19: 599 1400 ---sodium chloride (NS) flush 5-40 mL #[id number] Admin Amount: 5-40 mL Ordered Dose: 5-40 mL Route: IntraVENous Freq: NEEDED Start Date: 10/29/19 No administration times (back 96 hours, ahead 96 hours). ------acetaminophen (TYLENOL) tablet 650 mg #[id number] Admin Amount: 2 Tab (2 x 325 mg Tab) Ordered Dose: 650 mg [place]: Oral Freq: EVERY 4 HOURS NEEDED Start Date: 10/29/19 No administration times (back 96 hours, ahe ad 96 hours).Maxwell Bray MR#: [id number] * Rm: [id number]: 5' 7" Wt: 3 00 lb Code: Full Code Iso:Diagnosis:Bipolar disorder with severe depression ([facility]) [F31.4]Allergies : No Known Allergies -------- Current as of: 10/29/19 1556 ---enoxaparin (LOVENOX) injection 40 mg #[id number] Admin Amount: 0.4 mL = 40 mg of 40 mg/0.4 mL Ordered Dose: 40 mg Route: SubCUTAneous Freq: EVERY 24 HOURS Start Date: 10/29/19 Administration times (back 96 hours, ahead 96 hours): 10/29/19: 1455 10/30/19: 1455 10/31/19: 14511/01/19: 14511/02/19 : 145 ---0.9% sodium chloride infusion #[id number] Ordered Dose: 100 mL/hr Route: IntraVENous Freq: [...] Supporting Document(s ) ID Date Data Source [id number] 10/29/2019 03:54:13 PM EDT [facility] History & PhysicalBrian Anam Bray is [...] of morbidity or mortality cardiac cath at [facility] approx 6-8 months ag o Other [...] week Gets together: Once a week Attends buddhism service: More than 4 times per year [...] trast. Sagittal and coronal reconstruction was performed.Utilizing mapping editor alg orithm the examination was performed to [...] QTC Calculation (Bezet) 446 ms Calculated P [place] 53 degrees Calculat ed R [place] 68 degrees Calculated T [place] 0 degrees Diagnosis Sinus tachycardiaProl onged NH intervalNonspecific intraventricular conduction delayCBC WITH AUTOMATED DIFF [...] lydia: 10/29/19 10:45 AMResult Value Ref Range Rouse level <0.20 (L) 0.6 - 1.2 MMOL/L GLUCOSE, POC Collection Time: 10/29/19 11:26 AMResult Value Ref Range Glucose, bedsid e 102 65 - 110 MG/DLAll lab results for the last 24 hours reviewed.Assessment/PlanAc tive Problems: Bipolar disorder with severe depression (HCC) (10/29/2019) possible [place]ent[place] dvertentoverdoseGeorge MD Corey Name Value Range Interpretation Code Description Data Melani rce(s) Supporting Document(s ) ID Date Data Source [id number] 10/29/2019 03:42:10 PM EDT [facility] TRANSFER - OUT REPORT:Verbal report give n [...] Supporting Document(s ) ID Date Data Source [id number] 10/29/2019 02:28:59 PM EDT [facility] The history is provided by the spouse.10 [...] morbidity or mortal ity cardiac cath at [facility] approx 6-8 months ago Other unknown [...] week Gets together: Once a week Attends buddhism service: More than 4 times per year [...] QTC Calculation (Bezet) 446 ms Calculated P [place] 53 degr ees Calculated R [place] 68 degrees Calculated T [place] 0 degrees Diagnosis Sinus tachycar diaProlonged NH intervalNonspecific intraventricular conduction delayCBC WIT H AUTOMATED [...] lydia: 10/29/19 10:45 AMResult Value Ref Range Rouse level <0.20 (L) 0.6 - 1.2 MMOL/L [...] Sagittal and coronalreconstru ction was performed. Utilizing mapping editor algorithm the examinationwas performed t o optimize [...] Supporting Document(s ) ID Date Data Source [id number] 10/29/2019 12:17:28 PM EDT [facility] XR CHEST PORTCLINICAL INDICATION PROVIDE D:. [...] Supporting Document(s ) ID Date Data Source [id number] 10/29/2019 11:55:57 AM EDT [facility] CT HEAD WO CONTClinical data: amsPriors: 03/13/2015.Technique: Multiple axial images were obtained from the skullbase to the vertexwithout administration of intravenous contrast. Sagittal and coronalreconstru ction was performed. Utilizing mapping editor algorithm the examinationwas performed t o optimize [...] Supporting Document(s ) ID Date Data Source [id number] 10/29/2019 11:48:34 AM EDT [facility] Name Value Range Interpretation Description Data Sup porting Code Source(s) Document(s ) Glucose 102 MG/DL 65-110 [facility] [Mass/volume] [facility] in Blood by Hospital Automated test strip ID Date Data Source [id number] 10/29/2019 10:49:56 AM EDT [facility] Patient lethargic, BIBA from home for le thargy and slurred speech. Name Value Range Interpretation Code Description Data Melani rce(s) Supporting Document(s ) ID Date Data Source [id number] 10/29/2019 11:29:33 AM EDT [facility] Name Value Range Interpretation Code Description Data Supporting Source(s) Document(s ) Rouse 0.6-1.2 Below low normal [facility] [Moles/volum [facility] e] in Serum Hospital or Plasma ID Date Data Source [id number] 10/29/2019 11:28:52 AM EDT [facility] Name Value Range Interpretation Description Data Sup porting Code Source(s) Document(s ) Sodium 136 136-145 [facility] [Moles/volume] mmol/L [facility] in Serum or Hospital Plasma Potassium 4.4 3.5-5.1 [facility] [Moles/volume] mmol/L [facility] in Serum or Hospital Plasma Chloride 106 98-107 [facility] [Moles/volume] mmol/L [facility] in Serum or Hospital Plasma Carbon 22 21-32 [facility] dioxide, total mmol/L [facility] [Moles/volume] Hospital in Serum or Plasma Anion gap in 12 10-20 [facility] Serum or mmol/L [facility] Plasma Hospital Glucose 108 74-106 Above high normal [facility] [Mass/volume] mg/dL [facility] in Serum or Hospital Plasma Urea nitrogen 16 mg/dL 7-18 [facility] [Mass/volume] [facility] in Serum or Hospital Plasma Creatinine 1.05 0.70-1.3 [facility] - [facility] [Mass/volume] mg/dL 0 [facility] in Serum or Hospital Plasma Glomerular >60 [facility] - [facility] filtration [facility] rate/1.73 sq M Hospital predicted among blacks [Volume Rate/Area] in Serum or Plasma by Creatinine-bas ed formula (MDRD) Glomerular >60 [facility] - Good filtration [facility] rate/1.73 sq M Hospital predicted among non-blacks [Volume Rate/Area] in Serum or Plasma by Creatinine-bas ed formula (MDRD) (NOTE)Estimated GFR is calculated using the Modification of Diet in RenalDisease (MDRD) Study equation, reported for both Americans(GFRAA) and non- Americans (GFRNA), and normalized to 1.7 9n2kswd surface area. The physician must decide which [...] 8.5-10.1 [facility] Serum or Plasma [facility] Hosp ital Bilirubin.total 0.7 mg/dL 0.2-1.0 [facility] - [facility] [Mass/volume] in Serum or [facility] Plasma Alanine aminotransferase 30 U/L 13-61 [facility] - [facility] [Enzymatic activity/volume] [facility] in Serum or Plasma Aspartate aminotransferase 27 U/L 15-37 [facility] - Good [Enzymatic activity/volume] [facility] in Serum or Plasma by With P-5'-P Alkaline phosphatase 139 U/L 45-117 Above high [facility] - Good [Enzymatic activity/volume] normal [facility] in Serum or Plasma Protein [Mass/volume] in 7.6 g/dL 6.4-8.2 [facility] - Good Serum or Plasma [facility] ital Albumin [Mass/volume] in 3.9 g/dL 3.5-4.7 [facility] - Good Serum or Plasma by [facility] ospital Bromocresol purple (BCP) dye binding method Globulin [Mass/volume] in 3.7 g/dL 1.7-4.7 [facility] - Good Serum by calculation [facility] Albumin/Globulin [Mass 1.0 0.7-2.8 [facility] - Good Ratio] in Serum or Plasma [facility] ID Date Data Source [id number] 10/29/2019 11:20:29 AM EDT [facility] Name Value Range Interpretation Description Data Sup porting Code Source(s) Document(s ) aPTT in 22.2 SEC 21.0-28. [facility] Platelet poor 0 [facility] plasma by [facility] Coagulation assay Therapeutic Range = 42.0-60.0 secs ID Date Data Source [id number] 10/29/2019 11:20:29 AM EDT [facility] Name Value Range Interpretation Description Data Sup porting Code Source(s) Document(s ) Prothrombin 10.3 sec 9.4-11.1 [facility] - Good time (PT) [facility] INR in 1.0 0.8-1.2 [facility] - Good Platelet poor [facility] plasma by Hospital Coagulation assay ID Date Data Source [id number] 10/29/2019 11:11:49 AM EDT [facility] Name Value Range Interpretation Description Data Sup porting Code Source(s) Document(s ) Leukocytes 8.1 K/uL 4.8-10.6 [facility] - [#/volume] in Good Blood by [facility] Automated count Hospital Erythrocytes 5.52 4.70-6.0 [facility] - [#/volume] in M/uL 0 Good Blood by [facility] Automated count [facility] Hemoglobin 16.7 14.0-18. [facility] - [Mass/volume] in g/dL 0 [facility] Blood [facility] Hematocrit 51.8 % 42.0-52. [facility] - [Volume 0 Good Fraction] of [facility] Blood by Hospital Automated count Erythrocyte mean 93.8 FL 81.0-94. [facility] - corpuscular 0 Good volume [Entitic [facility] volume] by Hospital Automated count Erythrocyte mean 30.3 PG 27.0-35. [facility] - corpuscular 0 Good hemoglobin [facility] [Entitic mass] Hospital by Automated count Erythrocyte mean 32.2 30.7-37. [facility] - corpuscular g/dL 3 Good hemoglobin [facility] [Mass/volume] by Automated count Erythrocyte 13.2 % 11.5-14. [facility] - distribution 0 Good width [Ratio] by [facility] Automated count [facility] Platelets 193 K/uL 130-400 [facility] - [#/volume] in Good Blood by [facility] Platelet mean 8.6 FL 9.2-11.8 Below low normal [facility] - volume [Entitic Good volume] in Blood [facility] by Automated Hospital count Nucleated 0.0 PER 0 [facility] - erythrocytes/100 100 WBC Good leukocytes [facility] [Ratio] in Blood Hospital Nucleated 0.00 0.0-0.01 [facility] - erythrocytes K/uL Good [#/volume] in [facility] Blood [facility] Segmented 79 % 48.0-72. Above high normal [facility] - neutrophils/100 0 Good leukocytes in [facility] Lymphocytes/100 10 % 18.0-40. Below low normal [facility] - leukocytes in 0 Good Blood [facility] Monocytes/100 8 % 2.0-12.0 [facility] - leukocytes in Good Blood [facility] Eosinophils/100 1 % 0.0-7.0 [facility] - leukocytes in Good Blood [facility] Basophils/100 0 % 0.0-3.0 [facility] - leukocytes in [facility] Immature 1 % 0-0.5 Above high normal [facility] - granulocytes/100 Good leukocytes in [facility] Automated count Segmented 6.4 K/UL 2.3-7.6 [facility] - neutrophils Good [#/volume] in [facility] Lymphocytes 0.8 K/UL 0.9-4.2 Below low normal [facility] - [#/volume] in [facility] Monocytes 0.7 K/UL 0.1-1.7 [facility] - [#/volume] in [facility] Eosinophils 0.1 K/UL 0.0-1.0 [facility] - [#/volume] in [facility] Basophils 0.0 K/UL 0.0-0.4 [facility] - [#/volume] in [facility] Immature 0.1 K/UL 0.0-0.17 [facility] - granulocytes Good [#/volume] in [facility] Automated count Differential [facility] - cell count [facility] method [facility] ID Date Data Source [id number] 09/15/2019 09:44:01 AM EDT [facility] Clinical Indications/Reason For Exam: pa in.AP, open-mouth [...] Supporting Document(s ) ID Date Data Source [id number] 09/15/2019 09:41:40 AM EDT [facility] THORACIC SPINE 4 views.History: Pain.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 Signing date/time: 09/15/2019 9:41 AMSigned by: CURTIS VARMA Name Value Range Interpretation Code Description [facility] Document(s ) ID Date Data Source [id number] 09/15/2019 09:40:53 AM EDT [facility] Clinical indications with reason for exa m: [...] Range Interpretation Code Description Data [facility](s) Supporting Document(s ) ID Date Data Source [id number] 08/17/2019 08:25:20 AM [facility] History: Chest PainTechnique: Portable c hest [...] Range Interpretation Code Description Data [facility](s) Supporting Document(s ) ID Date Data Source [id number] 08/16/2019 11:12:22 PM [facility] The history is provided by the [...] m orbidity or mortality cardiac cath at [facility] approx 6-8 months ago Other unknown [...] e Gets together: Not on file Attends buddhism service: Not on file 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 [...] 123/86 121/86Pulse: (!) 107 (!) 101 96R tahmnia: 20 20 15Temp:SpO2: 91% 91% 92%Weight:Height:Physical ExamVitals [...] Calculation (Bezet) 429 ms Ca lculated P [place] 36 degrees Calculated R [place] 77 degrees Calculated T [place] -24 degrees Diagnosis Sinus tachycardiaBorderline T abnormalities, [...] Time: 08/16/19 9:00 PMResult Value Ref Range Rouse level 0.21 (L) 0.6 - 1.2 MMOL/LEKG: sinus tach ycardia, rate 109Radiology:CXR: no acute findings<EMERGENCY DEPARTMENT CASE [facility]>Impression/Differential Diagnosis: Allergic reaction allergic, drug reactio n,ACS, pulmonary embolismED Course: Patient presents short of breath and mildly tach ycardic complainingof new onset rash to face anterior chest and posterior chest.Plan: Labs, chest x-ray, EKG, troponin, d-dimer, prednisone, Pepcid, itckfaanrlj25:04 PM patient verbalizes relief of symptoms rash has faded. He denies chestpain he denie s shortness of breath.Patient was advised that we cannot rule out allergic drug re action as he isrecently just restarted taking his lithium. Patient advised to discuss takinglithium with his psychiatrist as soon as possible.Patient reassessed at [facility] by me. Feels better at present, [...] time of disposition: [facility]:Prior to Admission medicationsMedication Sig Start [...] the MLP,including the assessment, treatment plan, and disposition.Maynak Troy MD Name Value Range Interpretation Code Description Data Melani rce(s) Supporting Document(s ) ID Date Data Source [id number] 08/16/2019 10:46:05 PM EST [facility] - [facility] [id number] [facility] EMERGENCY [facility] [address] [facility] [id number] [phone]/ Maxwell Bray (Male) [id number] ES I 3 ED Dispo:DISCHARGE Chief Complaint: Allergic Reaction Diagnosis: Allergic reaction, initial encounter [] Allergic reaction to drug, in itial encounter [] Current Providers: Attending: Javier Quezada Nurse Practitioner: Javier Ward Primary Nurse: HARINDER AcuñaN: [id number] [employer] [id number] - [facility] Ed Medva MrnMRN: [id number] [employer] [phone] - [facility] Age Sex 1970 AGE 49 SEX Male Primary Care Provider: Ritika Canas MD Jbjhcuadf: (No Known Allergies)Date Reviewed: 08/16/2019Reviewed by: Zahraa Prince RN - Review CompleteED Provider Notes: No not es of this type exist for this encounter.ED Orders BUPROPION XL 300 MG 24 HR TAB [#[id number]] Priority: Routine Class: Historical Med LITHIUM CARBONATE 150 MG CAP [#[id number]] Priority: Routine Class: Historical Med FAMOTIDINE 20MG + NS 10 ML IV [#[id number]] Priority: STAT Class: Normal H2RA INDICATION -> Adverse reaction/Anaphylaxis SODIUM CH LORIDE 0.9 % IV [#[id number]] Priority: STAT Class: Normal METHYLPREDNISOLONE (PF) 125 MG/2 ML * [#[id number]] Priority: STAT Class: Normal ASPIRIN 81 MG CHEWABLE TAB [# [id number]] Priority: STAT Class: Normal PREDNISONE 50 MG TAB [#[id number]] Bridgette ority: Routine Class: Normal [id number] 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 [#[id number]] Priority: STAT C lass: Hospital Performed Standing Order Information Remaining Occurrences:0/1 Interval:Contin uous Last released:08/16/2019 Released orders: Sat Aug 16, 2019 9:02 PM by: Javier POLLOCK Type: -> Bedside [id number] OBTAIN OLD EKG [#[id number]] Priority: Routi ne Class: Hospital Performed Standing Order Information Remaining Occurrences:0/1 Inter haile:ONE TIME Last released:08/16/2019 Released orders: Sat Aug 16, 2019 9:02 PM by: INDIO WARD [id number] PULSE OXIMETRY CONTINUOUS [#[id number]] Priority: STAT Class: H ospital Performed Standing Order Information Remaining Occurrences:0/1 Interval:CONTIN UOUS Last released:08/16/2019 Released orders: Sat Aug 16, 2019 9:02 PM by: Javier POLLOCK 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 [employer]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 [#[id number]] Priority: STAT Class: Hospital Perfo rmed Type: -> Bedside Released on: 08/16/2019 9:02 PM [id number] OBTAIN OLD EKG [#[id number]] Priority: STAT Class: Hospital Performed Released on: 08/16/2019 9:02 PM [id number] PULSE OXIMETRY CONTINUOUS [#[id number]] Priority: STAT Class: Hospital Performed Relea sed on: 08/16/2019 9:02 PM [id number] DIET NPO [#[id number]] Priority: STAT Cla ss: Hospital Performed Standing Order Information Remaining Occurrences:0/1 Interval:DIET E FFECTIVE NOW Last released:08/16/2019 Released orders: Sat Aug 16, 2019 9:02 PM by: INDIO WARD NPO options: -> With Meds [id number] DIET NPO [#[id number]] Priority: STAT Class: Hospital Performed NPO options: -> With Meds Released on: 08/16/2019 9:02 PM [id number] SALINE LOCK IV [#[id number]] Priority: STAT Class: Hospital Performe d Standing Order Information Remaining Occurrences:0/1 Interval:ONE TIME Last released: 08/16/2019 Released orders: Sat Aug 16, 2019 9:02 PM by: INDIO POLLOCK [id number] SALIN E LOCK IV [#[id number]] Priority: STAT Class: Hospital Performed Released on : 08/16/2019 9:02 PM [id number] METABOLIC PANEL, COMPREHENSIVE [#[id number]] Priority: STAT Class: E R Collect Standing Order Information Remaining Occurrences:0/1 Interval:ONE TIME Last r eleased:08/16/2019 Released orders: Sat Aug 16, 2019 9:02 PM by: INDIO POLLOCK [id number] CBC WITH AUTOMATED DIFF [#[id number]] Priority: STAT Class: ER Collect Standing Order Info rmation Remaining Occurrences:0/1 Interval:ONE TIME Last released:08/16/2019 Released orders: [facility] Aug 16, 2019 9:02 PM by: INDIO POLLOCK [id number] TROPONIN I [#[id number]] Priority: STAT Class: ER Collect Standing Order Information Remaining Occurre nces:0/1 Interval:ONE TIME Last released:08/16/2019 Released orders: [facility] Aug 16 9:02 PM by: INDIO POLLOCK [id number] MAGNESIUM [#[id number]] Priorit y: STAT Class: ER Collect Standing Order Information Remaining Occurrences:0/1 Inter haile:ONE TIME Last released:08/16/2019 Released orders: [facility] Aug 16, 2019 9:02 PM by: INDIO WARD [id number] D DIMER [#[id number]] Priority: STAT Class: E R Collect Standing Order Information Remaining Occurrences:0/1 Interval:ONE TIME Last r eleased:08/16/2019 Released orders: [facility] Aug 16, 2019 9:02 PM by: INDIO POLLOCK [id number] METABOLIC PANEL, COMPREHENSIVE [#[id number]] Priority: STAT Class: ER Collect Specimen Source: Plas ma Specimen Collected: 08/16/2019 9:00 PM Resulting Agency: [facility] Test ID: [id number] Released on: 08/16/2019 9:02 PM [id number] CBC WITH AUTOMATED DIFF [#[id number]] Prior ity: STAT Class: ER Collect Specimen Source: Whole Blood Specimen Collected: 08/16/2019 9:00 PM Lindain cristi Agency: [facility] Test ID: [id number] Released on: 08/16/2019 9:02 PM [id number] TROPONIN I [#[id number]] Priority: STAT Class: ER Collect Specimen Source : Plasma Specimen Collected: 08/16/2019 9:00 PM Resulting Agency: [facility] Test ID: TROIP Released on: 08/16/2019 9:02 PM [id number] MAGNESIUM [#[id number]] Priority: STAT Class: ER Collect Specimen Source: Plasma Specimen Collected: 08/16/2019 9:00 PM Resultin g Agency: [facility] Test ID: MGPL Released on: 08/16/2019 9:02 PM [id number] D DIMER [#[id number]] Priority: STAT Class: ER Collect Specimen Source : Plasma Specimen Collected: 08/16/2019 9:00 PM Resulting Agency: [facility] Test ID: [id number] Released on: 08/16/2019 9:02 PM [id number] LITHIUM [#[id number]] Priority: STAT Class: ER Collect Standing Order Information Remaining Occurrences:0/1 Inter haile:ONE TIME Last released:08/16/2019 Released orders: Sat Aug 16, 2019 9:02 PM by: INDIO WARD [id number] LITHIUM [#[id number]] Priority: STAT Class: E R Collect Specimen Source: Serum Specimen Collected: 08/16/2019 9:00 PM Resulting Agency: [facility] Test ID: LI Released on: 08/16/2019 9:02 PM [id number] EKG, 12 LEAD, INITIAL [#[id number]] Priority: STAT Class: Hospital Performed Standing Order Information Remainin g Occurrences:0/1 Interval:ONE TIME Last released:08/16/2019 Released orders : Sat Aug 16, 2019 9:02 PM by: INDIO POLLOCK Reason for Exam: -> Chest Pain [id number] EKG, 12 LEAD, INITIAL [#[id number]] Priority: STAT Class: Hospital Performed Resulting Age ncy: [facility] Test ID: [id number] Reason for Exam: -> Chest Pain Released on: 08/16/2019 9:02 PM [id number] XR CHEST PORT [#[id number]] Priority: STAT Class: Hospital Performed Stand ing Order Information Remaining Occurrences:0/1 Interval:ONE TIME Last released:0 08/16/2019 Released orders: Sat Aug 16, 2019 9:02 PM by: INDIO POLLOCK Reason for Exam -> Chest Pain [id number] XR CHEST PORT [#[id number]] Priority: STAT Class: H ospital Performed Resulting Agency: [facility] Test ID: [id number] Reason for Exam -> Chest Pain Rele ased on: 08/16/2019 9:02 Maxwell Corona MR#: [id number] * Rm: [id number] Ht: 5' 10" Wt: 280 lb Code: Prior Iso:Diagnosis:Allergies: No Known Allergies -------- Current as of: 08/16/192245 GI=Given IC=IV Complet ed NB=New Bag --aspirin (ASPIRIN) tablet 325 mg #[id number] Admin Amount: 1 Tab (1 x 325 mg Tab) Ordered Dose: 325 mg Route: Oral Freq: ONCE Start Date: 12/24/13 No administration times (back 96 hours, ahead 96 hours). ------diphenhydrAMINE (BENADRYL) capsule 50 mg #[id number] Admin Amount: 1 Cap (1 x 50 mg Cap) Ordered Dose: 50 mg Route: Garya l Freq: NOW Start Date: 12/24/13 No administration times (back 96 hours, ahe ad 96 hours). ------diazepam (VALIUM) tablet 5 mg #[id number] Admin Amount: 1 Tab (1 x 5 mg Tab) Ordered Dose: 5 mg Route: Oral Freq: ON CE Start Date: 12/24/13 No administration times (back 96 hours, ahead 96 hours). ------lidocaine (XYLOCAINE) 10 mg/mL (1 %) injection 1-30 mL #[id number] Admin Amount: 1-30 mL Ordered Dose: 1-30 mL Route: IntraDERMal Freq: ONCE Start Date: 12/24/13 No administration times (back 96 hours, ahead 96 hours). ------heparin (PF) 2 units/ml in NS infusion 2,000 Units #[id number] Admin Amount: 1,000 mL = 2,000 Units of 2 Units/mL Ordered Dose: 1,000 mL [place]: Irrigation Freq: ONCE Start Date: 12/24/13 No administration times (back 96 hours, ahead 96 hours). ------heparinized saline 2 units/mL infusion 1,000 Units #[id number] Admin Amount: 500 mL = 1,000 Units of 2 Units/mL Ordered Dose: 500 mL [place]: IntraarTERial Freq: ONCE Start Date: 12/24/13 No administration times (back 96 hours, ahead 96 hours). ------0.9% sodium chloride infusion #[id number] Ordered Dose: 75 mL/hr Route: IntraVENous Freq: CONTINUOUS Start Date: 12/24/13 Rate: 75 mL/hr Duration: No administration times (back 96 hours, ahead 96 hours). ------ioversol (OPTIRAY) 320 mg iodine/mL contrast injection 1-100 mL #[id number] Admin Amount: 1-100 mL Ordered Dose: 1-100 mL Route: IntraVENous Freq: RAD O NCE Start Date: 12/24/13 No administration times (back 96 hours, ahead 96 hours).Maxwell Bray MR#: [id number] * Rm: [id number]: 5' 10" Wt: 280 lb Co de: Prior Iso:Diagnosis:Allergies: No Known Allergies -------- Current as of: 08/16/19 2246 GI=Given IC=IV Complet ed NB=New Bag --gadobutrol (GADAVIST) contrast solution 1-10 mL #[id number] Admin Amount: 1-10 mL Ordered Dose: 1-10 mL Route: IntraVENous Freq: RAD O NCE Start Date: 01/13/14 No administration times (back 96 hours, ahead 96 hours). ------sodium chloride (NS) flush 5-10 mL #[id number] Admin Amount: 5-10 mL Ordered Dose: 5-10 mL Route: IntraVENous Freq: RAD ONCE Start Date: 01/13/14 No administration times (back 96 hours, ahead 96 hours). ------sodium chloride (NS) 0.9 % flush #[id number] Ordered Dose: Route: Freq: Start Date: 01/13 No administration times (back 96 hours, ahead 96 hours). ------morphine injection 2 mg #[id number] Admin Amount: 1 mL = 2 mg of 2 mg/mL Ordered Dose: 2 mg Route: IntraVENous Freq: NOW Start Date: 03/13/15 No administration times (back 96 hours, ahe ad 96 hours). ------influenza vaccine (4 yr+)(PF) (FLUCELVAX QUAD) inj ection 0.5*#[id number] Admin Amount: 0.5 mL Ordered Dose: 0.5 mL Route: IntraMUSCular Freq: PRIOR TO DISCHARGE Start Date: 03/30/16 No administration times (back 96 hours, ahead 96 hours). ------oxyCODONE-acetaminophen (PERCOCET) 5-325 mg per tablet 1 Tab #[id number] Admin Amount: 1 Tab Ordered Dose: 1 Tab Route: Oral Freq: NOW Start Date: 09/07/17 No administration times (back 96 hours, ahead 96 hours). ------barium sulfate (READICAT) 2.1 % (w/v), 2.0 % (w /w) oral suspension 9*#[id number] Admin Amount: 900 mL Ordered Dose: 900 mL Route: Oral Delgado q: RAD ONCE Start Date: 10/15/17 No administration times (back 96 hours, ahead 96 hours). ------iopamidol (ISOVUE 300) 61 % contrast injection 100 mL #[id number] Admin Amount: 100 mL Ordered Dose: 100 mL Route: IntraVENous Freq: RAD ONC E Start Date: 10/15/17 No administration times (back 96 hours, ahead 96 hours).Maxwell Bray MR#: [id number] * Rm: [id number]: 5' 10" Wt: 280 lb Code: Prior Iso:Diagnosis:Allergies: No Known Allergies -------- Current as of: 08/16/192245 GI=Given IC=IV Complet ed NB=New Bag --risperiDONE (RisperDAL m-tabs) disintegrating tablet 1 mg #[id number] Admin Amount: 1 Tab (1 x 1 mg Tab) Ordered Dose: 1 mg Route: Oral Freq: ONCE Start Date: 12/24/17 No administration times (back 96 hours, ahead 96 hours). ------ALPRAZolam (XANAX) tablet 2 mg #[id number] Admin Amount: 4 Tab (4 x 0.5 mg Tab) Ordered Dose: 2 mg Route: Ora l Freq: NOW Start Date: 12/24/17 No administration times (back 96 hours, ahe ad 96 hours). ------lamoTRIgine (LaMICtal) tablet 100 mg #[id number] Admin Amount: 1 Tab (1 x 100 mg Tab) Ordered Dose: 100 mg Route: Oral Delgado q: ONCE Start Date: 12/24/17 No administration times (back 96 hours, ahead 96 hours). ------OLANZapine (ZyPREXA zydis) disintegrating tablet 5 mg #[id number] Admin Amount: 1 Tab (1 x 5 mg Tab) Ordered Dose: 5 mg Route: Oral Delgado q: ONCE Start Date: 12/25/17 No administration times (back 96 hours, ahead 96 hours). ------LORazepam (ATIVAN) tablet 2 mg #[id number] Admin Amount: 4 Tab (4 x 0.5 mg Tab) Ordered Dose: 2 mg Route: Ora l Freq: NOW Start Date: 12/25/17 No administration times (back 96 hours, [facility] ad 96 hours). ------LORazepam (ATIVAN) injection 1 mg #[id number] Admin Amount: 0.5 mL = 1 mg of 2 mg/mL Ordered Dose: 1 mg Route: Int TrevorENous Freq: NOW Start Date: 12/25/17 No administration times (back 96 hours, [facility] ad 96 hours). ------barium sulfate (EZ PAQUE) 96 % (w/w) contrast suspension 17 6 g #[id number] Admin Amount: 176 g Ordered Dose: 176 g Route: Oral Freq: RAD ONCE Start Date: 08/02/18 No administration times (back 96 hours, ahead 96 hours). ------barium sulfate (EZ PAQUE) 96 % (w/w) contrast s uspension 176 g #[id number] Admin Amount: 176 g Ordered Dose: 176 g Route: Oral Delgado q: RAD ONCE Start Date: 08/02/18 No administration times (back 96 hours, ahead 96 hours).Maxwell Ritter MR#: [id number] * Rm: [id number]: 5' 10" Wt: 280 lb Co de: Prior Iso:Diagnosis:Allergies: No Known Allergies -------- Current as of: 08/16/192245 GI=Given IC=IV Complet ed NB=New Bag --aspirin chewable tablet 162 mg #[id number] Admin Amount: 2 Tab (2 x 81 mg Tab) Ordered Dose: 162 mg Route: Oral Freq: NOW Start Date: 08/10/19 No administration times (back 96 hours, ahead 96 hours). ------famotidine (PF) (PEPCID) 20 mg in 0.9% sodium chloride 10 mL inje cti*#[id number] Admin Amount: 20 mg Ordered Dose: 20 mg Route: IntraVENous Freq: EVERY 12 H OURS Start Date: 08/16/19 Administration times (back 96 hours, ahead 96 hours): 08/16/19: 211G I 08/17/19: 89908/18/19: 89908/19/19: 89908/20/19: 899 2099 ---0.9% sodium chloride infusion 1,000 mL #[id number] Admin Amount: 1,000 mL Ordered Dose: 1,000 mL Route: IntraVENous Freq: ONC E Start Date: 08/16/19 Rate: 1,000 mL/hr Duration: Administration times (back 96 hours, ahead 96 hours): 08/16/19: 2118NB 2245IC -----methylPREDNISolone (PF) (Solu-MEDROL) injection 125 mg #[id number] Admin Amount: 2 mL = 125 mg of 125 mg/2 mL Ordered Dose: 125 mg Route: Int raVENous Freq: NOW Start Date: 08/16/19 Administration times (back 96 hours, ahe ad 96 hours): 08/16/19: 2118GI -----aspirin chewable tablet 162 mg #[id number] Admin Amount: 2 Tab (2 x 81 [...] mg by mouth three (3) times daily.[employer]pense [place] unt:Start Date:End Date:Doc. Provider: Other, Phys, MDpredniSONE [...] M DDetails:In 2 daysComments:Contact Info:[address] 285CoAsp[phone]-up With:[facility] DEPARTMENTDetails:Comments:As needed, If symptoms worsenContact Info:[address] [place] [id number] Name Value Range Interpretation Code Description Data Melani rce(s) Supporting Document(s ) ID Date Data Source [id number] 08/16/2019 10:45:45 PM [facility] IV site clean/dry/intact, gauze dressing applied. Pt received written and verbaldischarge instructions. Verbalize d understanding of same. Ambulated out of EDwith steady gait and in no distress. Name Value Range Interpretation Code Description Data Melani rce(s) Supporting Document(s ) ID Date Data Source [id number] 08/16/2019 09:58:14 PM [facility] Name Value Range Interpretation Description Data Sup porting Code Source(s) Document(s ) Rouse 0.21 0.6-1.2 Below low normal [facility] [Moles/volu MMOL/L [facility]] in Hospital Serum or Plasma ID Date Data Source [id number] 08/16/2019 09:52:19 PM [facility] Name Value Range Interpretation Code Description Data Melani rce(s) Supporting Document(s ) Fibrin <500 [facility] D-dimer [facility] [[facility]] [facility] in Platelet poor plasma (NOTE)Combination of a D-Dimer result wi thin the reference range and a lowclinical pretest probability has good negative pr edictive value fordeep venous thrombosis.If results are utilized for VTE evaluation, <500 ng/ml is consideredto be negative. ID Date Data Source [id number] 08/16/2019 09:44:39 PM [facility] Name Value Range Interpretation Description Data Sup porting Code Source(s) Document(s ) Troponin 0.00-0.05 [facility] I.cardiac [facility] ] in Serum or Plasma [...] cTnI cutoff/range of values consistent with m connoral infarction: 0.60 to 1.50 ng/mL ID Date Data Source [id number] 08/16/2019 09:44:39 PM EST [facility] Name Value Range Interpretation Description Data Sup porting Code Source(s) Document(s ) Sodium 138 136-145 [facility] [Moles/volume] mmol/L [facility] in Serum or Hospital Plasma Potassium 3.4 3.5-5.1 Below low normal [facility] [Moles/volume] mmol/L [facility] in Serum or Hospital Plasma Chloride 108 98-107 Above high normal [facility] [Moles/volume] mmol/L [facility] in Serum or Hospital Plasma Carbon 20 21-32 Below low normal [facility] dioxide, total mmol/L [facility] [Moles/volume] Hospital in Serum or Plasma Anion gap in 14 10-20 [facility] Serum or mmol/L [facility] Plasma Hospital Glucose 105 74-106 [facility] [Mass/volume] mg/dL [facility] in Serum or Hospital Plasma Urea nitrogen 20 mg/dL 7-18 Above high normal [facility] [Mass/volume] [facility] in Serum or Hospital Plasma Creatinine 0.90 0.70-1.3 [facility] [Mass/volume] mg/dL 0 [facility] in Serum or Hospital Plasma Glomerular >60 [facility] filtration [facility] rate/1.73 sq M Hospital predicted among blacks [Volume Rate/Area] in Serum or Plasma by Creatinine-bas ed formula (MDRD) Glomerular >60 [facility] filtration [facility] rate/1.73 sq M Hospital predicted among non-blacks [Volume Rate/Area] in Serum or Plasma by Creatinine-bas ed formula (MDRD) (NOTE)Estimated GFR is calculated using the Modification of Diet in RenalDisease (MDRD) Study equation, reported for both Americans(GFRAA) and non- Americans (GFRNA), and normalized to 1.7 4v7ewuj surface area. The physician must decide which [...] normal [facility] Serum or Plasma [facility] ital Bilirubin.total 0.3 mg/dL 0.2-1.0 [facility] [Mass/volume] in Serum or [facility] Plasma Alanine aminotransferase 37 U/L 13-61 [facility] [Enzymatic activity/volume] [facility] in Serum or Plasma Aspartate aminotransferase 22 U/L 15-37 [facility] - [facility] [Enzymatic activity/volume] [facility] in Serum or Plasma by With P-5'-P Alkaline phosphatase 98 U/L 45-117 [facility] o[facility] [Enzymatic activity/volume] [facility] in Serum or Plasma Protein [Mass/volume] in 7.0 g/dL 6.4-8.2 [facility] Serum or Plasma [facility] ital Albumin [Mass/volume] in 3.7 g/dL 3.5-4.7 [facility] Serum or Plasma by [facility] ospital Bromocresol purple (BCP) dye binding method Globulin [Mass/volume] in 3.3 g/dL 1.7-4.7 [facility] Serum by calculation [facility] Albumin/Globulin [Mass 1.1 0.7-2.8 [facility] Ratio] in Serum or Plasma [facility] ID Date Data Source [id number] 08/16/2019 09:44:39 PM EST [facility] Name Value Range Interpretation Description Data Sup porting Code Source(s) Document(s ) Magnesium 2.3 mg/dL 1.6-2.6 [facility] [Mass/volume] [facility] in Serum or Hospital Plasma ID Date Data Source [id number] 08/16/2019 09:23:23 PM EST [facility] Name Value Range Interpretation Description Data Sup porting Code Source(s) Document(s ) Leukocytes 7.6 K/uL 4.8-10.6 [facility] - [#/volume] in Good Blood by [facility] Erythrocytes 4.97 4.70-6.0 [facility] - [#/volume] in M/uL 0 Good Blood by [facility] Automated count Hospital Hemoglobin 15.2 14.0-18. [facility] - [Mass/volume] in g/dL 0 [facility] Blood [facility] Hematocrit 45.0 % 42.0-52. [facility] - [Volume 0 Good Fraction] of [facility] Blood by Hospital Automated count Erythrocyte mean 90.5 FL 81.0-94. [facility] - corpuscular 0 Good volume [Entitic [facility] volume] by Hospital Automated count Erythrocyte mean 30.6 PG 27.0-35. [facility] - corpuscular 0 Good hemoglobin [facility] [Entitic mass] Hospital by Automated count Erythrocyte mean 33.8 30.7-37. [facility] - corpuscular g/dL 3 Good hemoglobin [facility] concentration Hospital [Mass/volume] by Automated count Erythrocyte 13.0 % 11.5-14. [facility] - distribution 0 Good width [Ratio] by [facility] Automated count Hospital Platelets 183 K/uL 130-400 [facility] - [#/volume] in Good Blood by [facility] Automated count Hospital Platelet mean 8.5 FL 9.2-11.8 Below low normal [facility] - volume [Entitic Good volume] in Blood [facility] by Automated Hospital count Nucleated 0.0 PER 0 [facility] - erythrocytes/100 100 WBC Good leukocytes [facility] [Ratio] in Blood Hospital Nucleated 0.00 0.0-0.01 [facility] - erythrocytes K/uL Good [#/volume] in [facility] Segmented 68 % 48.0-72. [facility] - neutrophils/100 0 Good leukocytes in [facility] Lymphocytes/100 19 % 18.0-40. [facility] - leukocytes in 0 [facility] Blood [facility] Monocytes/100 7 % 2.0-12.0 [facility] - leukocytes in [facility] Blood [facility] Eosinophils/100 5 % 0.0-7.0 [facility] - leukocytes in [facility] Blood [facility] Basophils/100 1 % 0.0-3.0 [facility] - leukocytes in [facility] Blood [facility] Immature 1 % 0-0.5 Above high normal [facility] - granulocytes/100 Good leukocytes in [facility] Blood by Hospital Automated count Segmented 5.2 K/UL 2.3-7.6 [facility] - neutrophils Good [#/volume] in [facility] Lymphocytes 1.5 K/UL 0.9-4.2 [facility] - [#/volume] in [facility] Monocytes 0.6 K/UL 0.1-1.7 [facility] - [#/volume] in [facility] Eosinophils 0.3 K/UL 0.0-1.0 [facility] - [#/volume] in [facility] Basophils 0.0 K/UL 0.0-0.4 [facility] - [#/volume] in [facility] Immature 0.0 K/UL 0.0-0.17 [facility] - granulocytes Good [#/volume] in [facility] Automated count Differential [facility] - cell count [facility] ID Date Data Source [id number] 08/16/2019 08:50:30 PM EST [facility] [place] sudden onset of difficulty breathing and rash while eating leticia food, rashacross face and chest slightly raised, no vesicles, denies any chest pain deniesany itching at this time. Went to urgent care, recei nataliia benadryl 50 mg IMfrom EMS. Name Value Range Interpretation Code Description [facility] Supporting Document(s ) ID Date Data Source [id number] 08/11/2019 08:03:02 AM EST [facility] History:Chest pain. Shortness of breath. 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 [...] QTC Calculation (Bezet) 435 ms Calculated P [place] 55 degrees Calculated R [place] 34 degrees Calculated T [place] 9 degrees Diagnosis S inus tachycardiaOtherwise normal [...] Time: 08/11/19 12:01 AMResult Value Ref Range Rouse level <0.20 (L) 0.6 - 1.2 MMOL/LLACTIC [...] 36N*ENCOUNTER 08/11/2019 01:42:54 AM EST [facility] [id number] [facility] [address] [address] [phone]/ Maxwell Mitchell Anam (Male) [id number] JOSE 2 ED Dispo:DISCHARGE Chief Complaint: Chest Pain, Shortne ss of Breath Diagnosis: Dyspnea, unspecified type [] Current Providers: Atte nding: Javier Quezada Primary Nurse: ELIS WilsonN: [id number] Print Grou p [id number] - Bshsi Ed Medva MrnMRN: [id number] Print Group [phone] - Bs hsi Ed Medva Age SexDOB 1970 AGE 49 SEX Male Primary Care Provider: Ritika Canas MD Phone: [phone]: (No Known Allergies)Date Reviewed: 08/10/2019Reviewed by: Chiquis Christianson Complete[facility] Provider Notes: No notes of this type exist for this encounter.ED Orders [id number] E KG, 12 LEAD, INITIAL [#[id number]] Priority: STAT Class: Hospital Performed Stand ing Order Information Remaining Occurrences:0/1 Interval:ONE TIME Last released:0 08/10/2019 Released orders: Arabella Aug 10, 2019 10:17 PM by: CHIQUIS CHRISTIANSON Reason for Exam: -> CP SOB [id number] EKG, 12 LEAD, INITIAL [#[id number]] Priority: STAT Class: Hospital Performed Specimen Collected: 08/10/2019 10:14 PM Resulting Agency: [facility] Test ID: [id number] Reason for Exam: -> CP SOB Released on: 08/10/2019 10:17 PM [id number] EKG, 12 LE AD, INITIAL [#[id number]] Priority: STAT Class: Hospital Performed Standing Or mariano Information Remaining Occurrences:0/1 Interval:ONE TIME Last released:0 08/10/2019 Released orders: Arabella Aug 10, 2019 11:51 PM by: MAYANK QUEZADA V Reason fo r Exam: -> Chest Pain [id number] EKG, 12 LEAD, INITIAL [#[id number]] Priority: STAT C lass: Hospital Performed Resulting Agency: [facility] Test ID: [id number] Reason for Exam: -> Chest P ain Released on: 08/10/2019 11:51 PM [id number] 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 [#[id number]] Priority: STAT Class: Hospital Performed Standing Order Information Remaining Occurre nces:0/1 Interval:Continuous Last released:08/10/2019 Released orders : Arabella Aug 10, 2019 11:51 PM by: MAYANK QUEZADA V Type: -> Bedside [id number] PULSE OXIMETR Y CONTINUOUS [#[id number]] Priority: STAT Class: Hospital Performed Standing Or mariano Information Remaining Occurrences:0/1 Interval:CONTINUOUS Last released :08/10/2019 Released orders: Ruby Aug 10, 2019 11:51 PM by: MAYANK QUEZADA V [id number] PULSE OXIMETRY SPOT CHECK [#[id number]] Priority: STAT Class: Hospital Performe d Standing Order Information Remaining Occurrences:0/1 Interval:ONE TIME Last r eleased:08/10/2019 Released orders: Ruby Aug 10, 2019 11:51 PM by: MAYANK QUEZADA V NU [id number] OBTAIN OLD EKG [#[id number]] Priority: Routine Class: Hospital Perfo rmed Standing Order Information Remaining Occurrences:0/1 Interval:ONE TI ME Last released:08/10/2019 Released orders: Ruby Aug 10, 2019 11:51 PM by: MAYANK QUEZADA V 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 [#[id number]] Priority: STAT Class: H ospital Performed Type: -> Bedside Released on: 08/10/2019 11:51 PM [id number] PULSE OXIM ETRY CONTINUOUS [#[id number]] Priority: STAT Class: Hospital Performed Released on : 08/10/2019 11:51 PM [id number] PULSE OXIMETRY SPOT CHECK [#[id number]] Priority: STAT C lass: Hospital Performed Released on: 08/10/2019 11:51 PM [id number] OBTAIN OLD EKG [#[id number]] Priority: STAT Class: Hospital Performed Released on: 08/10/2019 11: 51 PM [id number] RT--OXYGEN CANNULA [#[id number]] Priority: STAT Class: H ospital Performed Standing Order Information Remaining Occurrences:0/1 Interval:CONTIN UOUS Last released:08/10/2019 Released orders: Ruby Aug 10, 2019 11:51 PM by: MAYANK PRADO V Comment:TITRATE UP TO 4 L / MINUTE TO MAINTAIN O2 SATS GREATER THAN OR EQUAL TO 94% LPM -> 2 Indications for O2? -> CHEST PAIN [id number] RT--OXYGEN CANNULA [#[id number]] Priority: STAT Class: Hospital Performed Comment:TITRATE UP TO 4 L / MINUTE TO MAINTAIN O2 SATS GREATER THAN OR EQUAL TO 94% LPM -> 2 Indications fo r O2? -> CHEST PAIN Released on: 08/10/2019 11:51 PM [id number] DIET NPO [#[id number]] Priority: STAT Class: Hospital Performed Standing Order Information Remaining Occurrences:0/1 Interval:DIET EFFECTIVE NOW Last released:08/10 Released orders: Ruby Aug 10, 2019 11:51 PM by: MAYANK QUEZADA V NPO options: - > With Meds [id number] DIET NPO [#[id number]] Priority: STAT Class: H ospital Performed NPO options: -> With Meds Released on: 08/10/2019 11:51 PM [id number] SALINE LOCK IV [#[id number]] Priority: STAT Class: Hospital Performed Standing O rder Information Remaining Occurrences:0/1 Interval:ONE TIME Last released:0 08/10/2019 Released orders: Ruby Aug 10, 2019 11:51 PM by: MAYANK QUEZADA V [id number] SALI NE LOCK IV [#[id number]] Priority: STAT Class: Hospital Performed Relea sed on: 08/10/2019 11:51 PM [id number] METABOLIC PANEL, COMPREHENSIVE [#[id number]] Bridgette ority: STAT Class: ER Collect Standing Order Information Remaining Occurrences:0/1 In terval:ONE TIME Last released:08/10/2019 Released orders: Ruby Aug 10, 2019 11:51 PM by: MAYANK QUEZADA V [id number] CBC WITH AUTOMATED DIFF [#[id number]] Priority: STAT Class: ER Collect Standing Order Information Remaining Occurrences:0/1 Inter haile:ONE TIME Last released:08/10/2019 Released orders: Ruby Aug 10, 2019 11:51 PM by: MAYANK QUEZADA V [id number] TROPONIN I [#[id number]] Priority: STAT Class: ER Collect Standing Order Information Remaining Occurrences:0/1 Inter haile:ONE TIME Last released:08/10/2019 Released orders: Ruby Aug 10, 2019 11:51 PM by: MAYANK QUEZADA V [id number] MAGNESIUM [#[id number]] Priority: STAT Class: ER Collect Standing Order Information Remaining Occurrences:0/1 Inter haile:ONE TIME Last released:08/10/2019 Released orders: Ruby Aug 10, 2019 11:51 PM by: MAYANK QUEZADA V [id number] BNP [#[id number]] Priority: STAT Class: ER Collect Standing Order Information Remaining Occurrences:0/1 Inter haile:ONE TIME Last released:08/10/2019 Released orders: Ruby Aug 10, 2019 11:51 PM by: MAYANK QUEZADA V [id number] D DIMER [#[id number]] Priority: STAT Class: ER Collect Standing Order Information Remaining Occurrences:0/1 Inter haile:ONE TIME Last released:08/10/2019 Released orders: Ruby Aug 10, 2019 11:51 PM by: MAYANK QUEZADA V [id number] PROTHROMBIN TIME + INR [#[id number]] Priority: STAT Class: ER Collect Standing Order Information Remaining Occurrences:0/1 Inter haile:ONE TIME Last released:08/10/2019 Released orders: Ruby Aug 10, 2019 11:51 PM by: MAYANK QUEZADA V [id number] PTT [#[id number]] Priority: STAT Class: ER Collect Specimen Source: Blood Standing Order Information Remaining Occurrences:0 /1 Interval:ONE TIME Last released:08/10/2019 Released orders: Ruby Aug 10, 2019 11:51 PM by: MAYANK QUEZADA V [id number] LITHIUM [#[id number]] Pr iority: STAT Class: ER Collect Standing Order Information Remaining Occurrences:0/1 I nterval:ONE TIME Last released:08/10/2019 Released orders: Ruby Aug 10, 2019 11:51 PM by: MAYANK QUEZADA V [id number] METABOLIC PANEL, COMPREHENSIVE [#[id number]] Bridgette ority: STAT Class: ER Collect Specimen Source: Plasma Specimen Collected: 08/11/2019 12:01 AM Resulting Agency: [facility] Test ID: MPL Released on: 08/10/2019 11:51 PM [id number] CBC WITH AUTOMATED DIFF [#[id number]] Priority: STAT Class: E R Collect Specimen Source: Whole Blood Specimen Collected: 08/11/2019 12:01 AM Resulting Agency: [facility] Test ID: [id number] Released on: 08/10/2019 11:51 PM [id number] TROPON IN I [#[id number]] Priority: STAT Class: ER Collect Specimen Source: Gerson sma Specimen Collected: 08/11/2019 12:01 AM Resulting Agency: [facility] RY Test ID: TROIP Released on: 08/10/2019 11:51 PM [id number] MAGNESIUM [#[id number]] Priority: STAT Class: ER Collect Specimen Source: Plasma Specimen Collec hyun: 08/11/2019 12:01 AM Resulting Agency: [facility] Test ID: MGPL Re leased on: 08/10/2019 11:51 PM [id number] BNP [#[id number]] Priority : STAT Class: ER Collect Specimen Source: Plasma Specimen Collected: 08/11/2019 12:01 AM Resultin g Agency: [facility] Test ID: BNPPB Released on: 08/10/2019 11:51 PM [id number] D DIMER [#[id number]] Priority: STAT Class: ER Collect Speci men Source: Plasma Specimen Collected: 08/11/2019 12:01 AM Resulting Agency: [facility] Test ID: DDIME Released on: 08/10/2019 11:51 PM [id number] PROTHROMBIN TIME + INR [#[id number]] Priority: STAT Class: ER Collect Specimen Source: Plasma Specimen Collec hyun: 08/11/2019 12:01 AM Resulting Agency: [facility] Test ID: APTHR R eleased on: 08/10/2019 11:51 PM [id number] PTT [#[id number]] Priorit y: STAT Class: ER Collect Specimen Source: Plasma Specimen Collected: 08/11/2019 12:01 AM Resultin g Agency: [facility] Test ID: APTT Released on: 08/10/2019 11:51 PM [id number] LITHIUM [#[id number]] Priority: STAT Class: ER Collect Speci men Source: Serum Specimen Collected: 08/11/2019 12:01 AM Resulting Agency: [facility] Test ID: LI Released on: 08/10/2019 11:51 PM [id number] LACTIC ACID [#[id number]] Priority: STAT Class: ER Collect Standing Order Information Remainin g Occurrences:0/1 Interval:ONE TIME Last released:08/11/2019 Released orders : SunAug 11, 2019 12:15 AM by: KATI WILSON [id number] LACTIC ACID [#[id number]] Priority: STAT Class: ER Collect Specimen Source: Plasma Specimen Collec hyun: 08/11/2019 12:01 AM Resulting Agency: [facility] Test ID: LAC Rel eased on: 08/11/2019 12:15 AM ASPIRIN 81 MG CHEWABLE TAB [#[id number]] Priority: STAT Class: Normal [id number] XR CHEST PORT [#[id number]] Priority: STAT Cl ass: Hospital Performed Standing Order Information Remaining Occurrences:0/1 Inter haile:ONE TIME Last released:08/10/2019 Released orders: Sun Aug 10, 2019 11:51 PM by: MAYANK QUEZADA V Reason for Exam -> Chest Pain [id number] XR CHEST PORT [#[id number]] Priority: STAT Class: Hospital Performed Resulting Agency: [facility] Test ID: [id number] Reason for Exam -> Chest Pain Released on: 08/10/2019 11:51 PM [id number] INFLUENZA A & B AG (RAPID TEST) [#[id number]] Priority: STAT Class: ER Collect Sta nding Order Information Remaining Occurrences:0/1 Interval:ONE TIME Last released: 08/10/2019 Released orders: Sun Aug 10, 2019 11:51 PM by: MAYANK QUEZADA V [id number] INFL UENZA A & B AG (RAPID TEST) [#[id number]] Priority: STAT Class: ER Collect Specimen Source : Nasal washing Specimen Collected: 08/11/2019 12:18 AM Resulting Agency: [facility] Test ID: INFLUA Released on: 08/10/2019 11:51 PM [id number] CULTURE, BLOOD [#[id number]] Priority: STAT Class: ER Collect Specimen Source: Blood Standing Order Information Remaining Occurrences:0/1 Interval:ONE TIME Last released:0 08/11/2019 Released orders: SunAug 11, 2019 12:15 AM by: KATI WILSON [id number] CULTU RE, BLOOD [#[id number]] Priority: STAT Class: ER Collect Specimen Source : Blood Standing Order Information Remaining Occurrences:0/1 Interval:ONE TI ME Last released:08/11/2019 Released orders: SunAug 11, 2019 12:15 AM by: KATI WILSON [id number] CULTURE, BLOOD [#[id number]] Priority: STAT Class: E R Collect Specimen Source: Blood Specimen Collected: 08/11/2019 12:33 AM Resulting Agency: [facility] Test ID: HBCS Released on: 08/11/2019 12:15 AM [id number] ALEK SWARTZ [#[id number]] Priority: STAT Class: ER Collect Specimen Source: Blo od Specimen Collected: 08/11/2019 12:43 AM Resulting Agency: [facility] Test ID: HBCS Released on: 08/11/2019 12:15 AMMaxwell Bray MR#: [id number] Acct#: [id number]* Rm: [id number]: 5' 10" Wt: 280 lb Code: Prior Iso:Diagnosis:Allergies: No Kno wn Allergies -------- Current as of: 08/11/19 0142 GI=Given -------aspirin (ASPIRIN) tablet 325 mg #[id number] Admin Amount: 1 Tab (1 x 325 mg Tab) Ordered Dose: 325 mg Route: Oral Freq: ONCE Start Date: 12/24/13 No administration times (b ack 96 hours, ahead 96 hours). ------diphenhydrAMINE (BENADRYL) capsule 50 mg #[id number] Admin Amount: 1 Cap (1 x 50 mg Cap) Ordered Dose: 50 mg [place]: Oral Freq: NOW Start Date: 12/24/13 No administration times (back 96 hours, ahead 96 hours). ------diazepam (VALIUM) tablet 5 mg #[id number] Admin Amount: 1 Tab (1 x 5 mg Tab) Ordered Dose: 5 mg Route: Oral Freq: ONCE Start Date: 12/24/13 No administration times (back 96 hours, ahead 96 hours). ------lidocaine (XYLOCAINE) 10 mg/mL (1 %) injection 1-3 0 mL #[id number] Admin Amount: 1-30 mL Ordered Dose: 1-30 mL Route: Int raDERMal Freq: ONCE Start Date: 12/24/13 No administration times (back 96 hours, ahead 96 hours). ------heparin (PF) 2 units/ml in NS infusion 2,000 Units #[id number] Admin Amount: 1,000 mL = 2,000 Units of 2 Units/mL Ordered Dose: 1,000 mL Route: Irrigation Freq: ONCE Start Date: 12/24/13 No administration times (back 96 hours, ahead 96 hours). ------heparinized saline 2 units/mL infusion 1,000 Units #[id number] Admin Amount: 500 mL = 1,000 Units of 2 Units/mL Ordered Dose: 500 m L Route: IntraarTERial Freq: ONCE Start Date: 12/24/13 No admini stration times (back 96 hours, ahead 96 hours). ------0.9% sodium chloride infusion #[id number] Ordered Dose: 75 mL/hr Route: IntraVENous Freq: CONTINUOUS Start Date: 12/24/13 Rate: 75 mL/hr Duration: No administration ti mes (back 96 hours, ahead 96 hours). ------ioversol (OPTIRAY) 320 mg iodine/mL contrast inje ction 1-100 mL #[id number] Admin Amount: 1-100 mL Ordered Dose: 1-100 mL Ro [place]: IntraVENous Freq: RAD ONCE Start Date: 12/24/13 No administration times (back 96 hours, ahead 96 hours).Maxwell Bray MR#: [id number] * Rm: [id number] Ht: 5' 10" Wt: 280 lb Code: Prior Iso:Diagnosis:Allergies: No Known Allergies -------- Current as of: 08/11/19 0142 GI=Given -------gadobutrol (GADAVIST) contrast solution 1-10 mL #[id number] Admin Amount: 1-10 mL Ordered Dose: 1-10 mL Route: Int raVENous Freq: RAD ONCE Start Date: 01/13/14 No administration times (back 96 hours, ahead 96 hours). ------sodium chloride (NS) flush 5-10 mL #[id number] Admin Amount: 5-10 mL Ordered Dose: 5-10 mL Route: IntraVENo us Freq: RAD ONCE Start Date: 01/13/14 No administration times (back 96 hours, ahe ad 96 hours). ------sodium chloride (NS) 0.9 % flush #[id number] Ordered Dose: Route: Freq: Start Date: 01/13/14 No administration times (back 96 hours, ahead 96 hours). ------morphine injection 2 mg #[id number] Admin Amount: 1 mL = 2 mg of 2 mg/mL Ordered Dose: 2 mg Route: IntraVENous Freq: NOW Start Date: 03/13/15 No administration t imes (back 96 hours, ahead 96 hours). ------influenza vaccine (4 yr+)(PF) (FLUCELVAX Q UAD) injection 0.5*#[id number] Admin Amount: 0.5 mL Ordered Dose: 0.5 mL Route: Int raMUSCular Freq: PRIOR TO DISCHARGE Start Date: 03/30/16 No administration times (back 9 6 hours, ahead 96 hours). ------oxyCODONE-acetam inophen (PERCOCET) 5-325 mg per tablet 1 Tab #[id number] Admin Amount: 1 Tab Ordered Dose: 1 Tab Route: Oral Freq: NOW Start Date: 09/07/17 No administration times (back 96 hours, e ad 96 hours). ------barium sulfate (READICAT) 2.1 % (w/v), 2.0 % (w/w) oral suspension 9*#[id number] Admin Amount: 900 mL Ordered Dose: 900 mL Route: Oral Delgado q: RAD ONCE Start Date: 10/15/17 No administration times (back 96 hours, ahe ad 96 hours). ------iopamidol (ISOVUE 300) 61 % contrast injection 100 mL #[id number] Admin Amount: 100 mL Ordered Dose: 100 mL Route: Int raVENous Freq: RAD ONCE Start Date: 10/15/17 No administration times (back 96 hours, ahead 96 hours).Maxwell Bray MR#: [id number] * Rm: [id number]: 5' 1 0" Wt: 280 lb Code: Prior Iso:Diagnosis:Allergies: No Known Allergies -------- Current as of: 08/11/192 GI=Given -------risperiDONE (RisperDAL m-tabs) disintegrating tablet 1 mg #[id number] Admin Amount: 1 Tab (1 x 1 mg Tab) Ordered Dose: 1 mg Route: Oral Freq: ONCE Start Date: 12/24/17 No administration times (back 96 hours, ahead 96 hours). ------ALPRAZolam (XANAX) tablet 2 mg #[id number] Admin Amount: 4 Tab (4 x 0.5 mg Tab) Ordered Dose: 2 mg Route: Oral Freq: NOW Start Date: 12/24/17 No administration times (back 96 hours, ahead 96 hours). ------lamoTRIgine (LaMICtal) tablet 100 mg #[id number] Admin Amount: 1 Tab (1 x 100 mg Tab) Ordered Dose: 100 mg Route: Oral Freq: ONCE Start Date: 12/24/17 No administration times (back 96 hours, ahead 96 hours). ------OLANZapine (ZyPREXA zydis) disintegrating tablet 5 mg #[id number] Admin Amount: 1 Tab (1 x 5 mg Tab) Ordered Dose: 5 mg Route: Oral Freq: ONCE Start Date: 12/25/17 No administration times (back 96 hours, ahead 96 hours). ------LORazepam (ATIVAN) tablet 2 mg #[id number] Admin Amount: 4 Tab (4 x 0.5 mg Tab) Ordered Dose: 2 mg Route: Oral Freq: NOW Start Date: 12/25/17 No administration times (back 96 hours, ahead 96 hours). ------LORazepam (ATIVAN) injection 1 mg #[id number] Admin Amount: 0.5 mL = 1 mg of 2 mg/mL Ordered Dose: 1 mg Route: IntraVENous Freq: NOW Start Date: 12/25/17 No administration ti mes (back 96 hours, ahead 96 hours). ------barium sulfate (EZ PAQUE) 96 % (w/w) contrast suspensio n 176 g #[id number] Admin Amount: 176 g Ordered Dose: 176 g Route: Oral Delgado q: RAD ONCE Start Date: 08/02/18 No administration times (back 96 hours, [facility] ad 96 hours). ------barium sulfate (EZ PAQUE) 96 % (w/w) contrast suspensio n 176 g #[id number] Admin Amount: 176 g Ordered Dose: 176 g Route: Oral Delgado q: RAD ONCE Start Date: 08/02/18 No administration times (back 96 hours, e ad 96 hours).Maxwell Bray MR#: [id number] * Rm: [id number]: 5' 10" Wt: 280 lb Code: Prior Iso:Diagnosis:Allergies: No Known Allergies -------- Current as of: 08/11/19 0142 GI=Given -------aspirin chewable tablet 162 mg #[id number] Admin Amount: 2 Tab (2 x 81 [...] visit in 1 dayComments:Contact Info:Chino Rodriguez [address] [id number] With:Detail s:Comments:As needed, If symptoms worsenContact Info: Name Value Range Interpretation Code Description Data Melani rce(s) Supporting Document(s ) ID Date Data Source [id number] 08/11/2019 01:40:37 AM EST [facility] I have reviewed discharge instructions w ith the patient and spouse. The patientand spouse verbalized understanding.\\ Name Value Range Interpretation Code Description Data Melani rce(s) Supporting Document(s ) ID Date Data Source [id number] 08/16/2019 06:35:29 AM EST [facility] Name Value Range Interpretation Description Data Sup porting Code Source(s) Document(s ) Service comment [facility] Bacteria [facility] - Good [facility] Culture ID Date Data Source [id number] 08/16/2019 06:35:28 AM EST [facility] Name Value Range Interpretation Description Data Sup porting Code Source(s) Document(s ) Service comment [facility] Bacteria [facility] - Good identified [facility] specimen by Culture ID Date Data Source [id number] 08/11/2019 12:56:01 AM EST [facility] Name Value Range Interpretation Description Data Sup porting Code Source(s) Document(s ) Influenza virus NEG [facility] A Ag [Presence] [facility] in [facility] by Immunoassay Influenza virus NEG [facility] - Good B Ag [Presence] [facility] in [facility] by Immunoassay IMMUNOCHROMATOGRAPHIC MEMBRANE ASSAYResu lt: Negative for Influenza A and BNote: A negative result does not exclude an infl uenza virus infection, including H1N1. If more conclusive testing is desired, foll ow-up confirmatory testing is warranted. Specimen source [Identifier] of Unspecified [facility] specimen ID Date Data Source [id number] 08/11/2019 01:35:58 AM EST [facility] Name Value Range Interpretation Description Data Sup porting Code Source(s) Document(s ) Prothrombin 9.6 sec 9.4-11.1 [facility] - Good time (PT) [facility] INR in 0.9 0.8-1.2 [facility] - Good Platelet poor [facility] plasma by Hospital Coagulation assay ID Date Data Source [id number] 08/11/2019 01:35:58 AM EST [facility] Name Value Range Interpretation Description Data Sup porting Code Source(s) Document(s ) aPTT in 23.1 SEC 21.0-28. [facility] - Good Platelet poor 0 [facility] plasma by [facility] Coagulation assay Therapeutic Range = 42.0-60.0 secs ID Date Data Source [id number] 08/11/2019 01:30:36 AM EST [facility] Value Range Interpretation Description Data Sup porting Code Source(s) Document(s ) Natriuretic 19 pg/mL 0-100 [facility] peptide B [facility] [Mass/volume] [facility] in Serum or Plasma ID Date Data Source [id number] 08/11/2019 01:25:10 AM EST [facility] Value Range Interpretation Code Description Data Supporting Source(s) Document(s ) Rouse 0.6-1.2 Below low normal [facility] - Good [Moles/volum [facility]-Ism e] in Serum Hospital or Plasma ID Date Data Source [id number] 08/11/2019 01:20:56 AM EST [facility] Value Range Interpretation Code Description Data Melani rce(s) Supporting Document(s ) Fibrin <500 [facility] - Good D-dimer FEU [facility] [Mass/volume] [facility] in Platelet poor plasma (NOTE)Combination of a D-Dimer result wi thin the reference range and a lowclinical pretest probability has good negative pr edictive value fordeep venous thrombosis.If results are utilized for VTE evaluation, <500 ng/ml is consideredto be negative. ID Date Data Source [id number] 08/11/2019 01:09:42 AM [facility] Range Interpretation Description Data Sup porting Code Source(s) Document(s ) Lactate 1.7 0.4-2.0 [facility] - Good [Moles/volu MMOL/L [facility] me] in Hospital Serum or Plasma ID Date Data Source [id number] 08/11/2019 01:09:42 AM EST [facility] - Good [facility] Name Value Range Interpretation Description Data Sup porting Code Source(s) Document(s ) Troponin 0.00-0.05 [facility] - Good I.cardiac [facility] [Mass/volume Hospital ] in Serum or Plasma [...] to 1.50 ng/mL ID Date Data Source [id number] 08/11/2019 01:09:42 AM EST [facility] - Good [facility] Value Range Interpretation Description Data Sup porting Code Source(s) Document(s ) Sodium 140 136-145 [facility] - Good [Moles/volume] mmol/L [facility] in Serum or Hospital Plasma Potassium 3.9 3.5-5.1 [facility] - Good [Moles/volume] mmol/L [facility] in Serum or Hospital Plasma Chloride 113 98-107 Above high normal [facility] - Good [Moles/volume] mmol/L [facility] in Serum or Hospital Plasma Carbon 21 21-32 [facility] - Good dioxide, total mmol/L [facility] [Moles/volume] Hospital in Serum or Plasma Anion gap in 10 10-20 [facility] - Good Serum or mmol/L [facility] Plasma Hospital Glucose 90 mg/dL 74-106 [facility] - Good [Mass/volume] [facility] in Serum or Hospital Plasma Urea nitrogen 18 mg/dL 7-18 [facility] - Good [Mass/volume] [facility] in Serum or Hospital Plasma Creatinine 0.78 0.70-1.3 [facility] - Good [Mass/volume] mg/dL 0 [facility] in Serum or Hospital Plasma Glomerular >60 [facility] - Good filtration [facility] rate/1.73 sq M Hospital predicted among blacks [Volume Rate/Area] in Serum or Plasma by Creatinine-bas ed formula (MDRD) Glomerular >60 [facility] - Good filtration [facility] rate/1.73 sq M Hospital predicted among non-blacks [Volume Rate/Area] in Serum or Plasma by Creatinine-bas ed formula (MDRD) (NOTE)Estimated GFR is calculated using the Modification of Diet in RenalDisease (MDRD) Study equation, reported for both Americans(GFRAA) and non- Americans (GFRNA), and normalized to 1.7 2d1yobs surface area. The physician must decide which [...] normal [facility] - Good Serum or Plasma [facility] Hosp ital Bilirubin.total 0.5 mg/dL 0.2-1.0 [facility] - Good [Mass/volume] in Serum or [facility] Plasma Alanine aminotransferase 29 U/L 13-61 [facility] - Good [Enzymatic activity/volume] [facility] in Serum or Plasma Aspartate aminotransferase 18 U/L 15-37 [facility] - Good [Enzymatic activity/volume] [facility] in Serum or Plasma by With P-5'-P Alkaline phosphatase 98 U/L 45-117 [facility] - G ood [Enzymatic activity/volume] [facility] in Serum or Plasma Protein [Mass/volume] in 6.7 g/dL 6.4-8.2 [facility] - Good Serum or Plasma [facility] Hosp ital Albumin [Mass/volume] in 3.4 g/dL 3.5-4.7 Below low normal [facility] - Good Serum or Plasma by [facility] H ospital Bromocresol purple (BCP) dye binding method Globulin [Mass/volume] in 3.3 g/dL 1.7-4.7 [facility] - Good Serum by calculation [facility] Albumin/Globulin [Mass 1.1 0.7-2.8 [facility] - Good Ratio] in Serum or Plasma [facility] ID Date Data Source [id number] 08/11/2019 01:09:42 AM EST [facility] - Good [facility] Name Value Range Interpretation Description Data Sup porting Code Source(s) Document(s ) Magnesium 2.1 mg/dL 1.6-2.6 [facility] - Good [Mass/volume] [facility] in Serum or Hospital Plasma ID Date Data Source [id number] 08/11/2019 01:01:18 AM EST [facility] - Good [facility] Name Value Range Interpretation Description Data Sup porting Code Source(s) Document(s ) Leukocytes 7.7 K/uL 4.8-10.6 [facility] - [#/volume] in Good Blood by [facility] Automated count Hospital Erythrocytes 4.93 4.70-6.0 [facility] - [#/volume] in M/uL 0 Good Blood by [facility] Automated count Hospital Hemoglobin 14.9 14.0-18. [facility] - [Mass/volume] in g/dL 0 Good Blood [facility] Hematocrit 44.4 % 42.0-52. [facility] - [Volume 0 Good Fraction] of [facility] Blood by Hospital Automated count Erythrocyte mean 90.1 FL 81.0-94. [facility] - corpuscular 0 Good volume [Entitic [facility] volume] by Hospital Automated count Erythrocyte mean 30.2 PG 27.0-35. [facility] - corpuscular 0 Good hemoglobin [facility] [Entitic mass] Hospital by Automated count Erythrocyte mean 33.6 30.7-37. [facility] - corpuscular g/dL 3 Good hemoglobin [facility] [Mass/volume] by Automated count Erythrocyte 12.5 % 11.5-14. [facility] - distribution 0 Good width [Ratio] by [facility] Automated count Hospital Platelets 189 K/uL 130-400 [facility] - [#/volume] in Good Blood by [facility] Automated count [facility] Platelet mean 9.0 FL 9.2-11.8 Below low normal [facility] - volume [Entitic Good volume] in Blood [facility] by Automated Hospital count Nucleated 0.0 PER 0 [facility] - erythrocytes/100 100 WBC Good leukocytes [facility] [Ratio] in Blood Hospital Nucleated 0.00 0.0-0.01 [facility] - erythrocytes K/uL Good [#/volume] in [facility] Segmented 59 % 48.0-72. [facility] - neutrophils/100 0 Good leukocytes in [facility] Lymphocytes/100 29 % 18.0-40. [facility] - leukocytes in 0 [facility] Monocytes/100 7 % 2.0-12.0 [facility] - leukocytes in [facility] Eosinophils/100 5 % 0.0-7.0 [facility] - leukocytes in [facility] Basophils/100 1 % 0.0-3.0 [facility] - leukocytes in [facility] Immature 0 % 0-0.5 [facility] - granulocytes/100 Good leukocytes in [facility] by Hospital Automated count Segmented 4.6 K/UL 2.3-7.6 [facility] - neutrophils Good [#/volume] in [facility] Lymphocytes 2.2 K/UL 0.9-4.2 [facility] - [#/volume] in [facility] Monocytes 0.5 K/UL 0.1-1.7 [facility] - [#/volume] in [facility] Eosinophils 0.4 K/UL 0.0-1.0 [facility] - [#/volume] in [facility] Basophils 0.1 K/UL 0.0-0.4 [facility] - [#/volume] in [facility] Immature 0.0 K/UL 0.0-0.17 [facility] - granulocytes Good [#/volume] in [facility] by Hospital Automated count Differential [facility] - cell count Good method [facility] Procedure Social History Code Duration Value Status Description Data Source(s ) Alcohol intake 01/08/2020 Current completed Current Smilax s 12:00:00 AM EDT non-drinker non-drinker of [facility] of alcohol alcohol (finding) [employer] (finding) Tobacco use and 01/08/2020 Never used completed Never used [facility] exposure 12:00:00 AM EDT [facility] Smoking 01/08/2020 Never smoker completed Never smoker Smilax s 12:00:00 AM EDT [employer] Alcohol intake 12/25/2019 Current completed Current Smilax s 12:00:00 AM EDT non-drinker non-drinker of [employer] alcohol (finding) [employer] (finding) Tobacco use and 12/25/2019 Never used completed Never used [facility] exposure 12:00:00 AM EDT [facility] Smoking 12/25/2019 Never smoker completed Never smoker Smilax s 12:00:00 AM EDT [employer] Alcohol intake 12/12/2019 Current completed Current Smilax s 12:00:00 AM EDT non-drinker non-drinker of [employer] alcohol (finding) [employer] (finding) Smoking 12/12/2019 Never smoker completed Never smoker Smilax s 12:00:00 AM EDT [employer] Alcohol intake 12/05/2019 Current completed Current Smilax s 12:00:00 AM EDT non-drinker non-drinker of [employer] alcohol (finding) [employer] (finding) Tobacco use and 12/05/2019 Never used completed Never used [facility] exposure 12:00:00 AM EDT [employer] Smoking 12/05/2019 Never smoker completed Never smoker Smilax s 12:00:00 AM EDT [employer] Alcohol intake 12/01/2019 Current completed Current Smilax s 12:00:00 AM EDT non-drinker non-drinker of [employer] alcohol (finding) [employer] (finding) Smoking 12/01/2019 Never smoker completed Never smoker Smilax s 12:00:00 AM EDT [employer] Alcohol intake 11/14/2019 Current completed Current Smilax s 12:00:00 AM EDT non-drinker non-drinker of [employer] alcohol (finding) [employer] (finding) Smoking 11/14/2019 Never smoker completed Never smoker Smilax s 12:00:00 AM EDT [employer] Alcohol intake 11/10/2019 Current completed Current Smilax s 12:00:00 AM EDT non-drinker non-drinker of [employer] alcohol alcohol (finding) [facility] (finding) Smoking 11/10/2019 Never smoker completed Never smoker Smilax s 12:00:00 AM EDT [employer] [facility] Alcohol intake 09/06/2019 Current completed Current Smilax s 12:00:00 AM EDT non-drinker non-drinker of [employer] of alcohol alcohol (finding) [facility] (finding) Smoking 09/06/2019 Never smoker completed Never smoker Smilax s 12:00:00 AM EDT [employer] [facility] Alcohol intake 08/16/2019 Current completed Current Smilax s 12:00:00 AM EST non-drinker non-drinker of [employer] alcohol (finding) [facility] (finding) Smoking 08/16/2019 Never smoker completed Never smoker Smilax s 12:00:00 AM EST [employer] [facility] Alcohol intake 08/10/2019 Current completed Current Smilax s 12:00:00 AM EST non-drinker non-drinker of [employer] alcohol alcohol (finding) [facility] [employer] (finding) Smoking 08/10/2019 Never smoker completed Never smoker Smilax s 12:00:00 AM EST [employer] [facility] Alcohol intake 07/21/2019 Current completed Current Smilax s 12:00:00 AM EST non-drinker non-drinker of [employer] alcohol alcohol (finding) [facility] [employer] (finding) Smoking 07/21/2019 Never smoker completed Never smoker Smilax s 12:00:00 AM EST [employer] [facility] Smoking 07/29/2018 Never smoker completed Never smoker Smilax s 12:00:00 AM EST [employer] [facility] Smoking 07/19/2018 Never smoker completed Never smoker Smilax s 12:00:00 AM EST [employer] [facility] Smoking 07/11/2018 Never smoker completed Never smoker Smilax s 12:00:00 AM EST [employer] [facility] Vital Signs ID Date Data Source UNK Name Value Range Interpretation Code Description Data Source(s) Oxygen saturation 98 % 98 % [facility] in Arterial blood [employer] by [employer] [facility] Body mass index 48.95 kg/m2 48.95 kg/m2 [facility] (BMI) [Ratio] [employer] [facility] Body weight 136.533 kg 136.533 kg [email or web address] Body height 167 cm 167 cm [email or web address] Respiratory rate 12 /min 12 /min [facility] [employer] Body temperature 36.56 May 36.56 May [facility] [employer] Heart rate 102 /min 102 /min [facility] Diastolic blood 60 mm[Hg] 60 mm[Hg] [facility] [employer] Systolic blood 100 mm[Hg] 100 mm[Hg] Smilax s pressure [employer] Diastolic blood 80 mm[Hg] 80 mm[Hg] [facility] [employer] Systolic blood 122 mm[Hg] 122 mm[Hg] Smilax s pressure [employer] Respiratory rate 20 /min 20 /min [facility] [employer] [facility] Heart rate 70 /min 70 /min [facility] Diastolic blood 70 mm[Hg] 70 mm[Hg] [facility] [employer] Systolic blood 124 mm[Hg] 124 mm[Hg] Smilax s pressure [employer] [facility] Respiratory rate 18 /min 18 /min [facility] [employer] Body temperature 36.56 May 36.56 May [facility] [employer] Heart rate 88 /min 88 /min [facility] Diastolic blood 86 mm[Hg] 86 mm[Hg] [facility] [employer] [facility] Systolic blood 110 mm[Hg] 110 mm[Hg] Smilax s pressure [employer] Oxygen saturation 98 % 98 % [facility] in Arterial blood [employer] by [employer] Body mass index 47.98 kg/m2 47.98 kg/m2 [facility] (BMI) [Ratio] [employer] [facility] Body weight 133.811 kg 133.811 kg [email or web address] Body height 167 cm 167 cm [email or web address] Respiratory rate 12 /min 12 /min [facility] [employer] Body temperature 36.67 May 36.67 May [facility] [employer] Heart rate 100 /min 100 /min [facility] Diastolic blood 66 mm[Hg] 66 mm[Hg] [facility] Systolic blood 102 mm[Hg] 102 mm[Hg] Smilax s pressure [employer] [facility] Respiratory rate 20 /min 20 /min [facility] [employer] [facility] Heart rate 70 /min 70 /min [email or web address] Diastolic blood 68 mm[Hg] 68 mm[Hg] [facility] Systolic blood 120 mm[Hg] 120 mm[Hg] Smilax s pressure [employer] [facility] Respiratory rate 18 /min 18 /min [facility] [employer] [facility] Heart rate 68 /min 68 /min [email or web address] Diastolic blood 68 mm[Hg] 68 mm[Hg] [facility] pressure [employer] [facility] Systolic blood 112 mm[Hg] 112 mm[Hg] Smilax s pressure [employer] [facility] Respiratory rate 20 /min 20 /min [facility] [employer] [facility] Body temperature 36.56 May 36.56 May [facility] [employer] [facility] Heart rate 92 /min 92 /min [email or web address] Diastolic blood 70 mm[Hg] 70 mm[Hg] [facility] Systolic blood 110 mm[Hg] 110 mm[Hg] Smilax s pressure [employer] [facility] Respiratory rate 20 /min 20 /min [facility] [employer] [facility] Heart rate 68 /min 68 /min [email or web address] Diastolic blood 72 mm[Hg] 72 mm[Hg] [facility] Systolic blood 112 mm[Hg] 112 mm[Hg] Smilax s pressure [facility] Respiratory rate 20 /min 20 /min [facility] [employer] [facility] Heart rate 82 /min 82 /min [email or web address] Diastolic blood 66 mm[Hg] 66 mm[Hg] [facility] Systolic blood 110 mm[Hg] 110 mm[Hg] Smilax s pressure [facility] Respiratory rate 14 /min 14 /min [facility] [employer] [facility] Body temperature 36.89 May 36.89 May [facility] [employer] [facility] Heart rate 72 /min 72 /min [facility] Diastolic blood 74 mm[Hg] 74 mm[Hg] [facility] pressure [employer] [facility] Systolic blood 128 mm[Hg] 128 mm[Hg] Smilax s pressure [employer] Respiratory rate 20 /min 20 /min [facility] [employer] [facility] Heart rate 68 /min 68 /min [email or web address] Diastolic blood 64 mm[Hg] 64 mm[Hg] [facility] pressure [employer] [facility] Systolic blood 108 mm[Hg] 108 mm[Hg] Smilax s pressure [employer] [facility] Respiratory rate 18 /min 18 /min [facility] [employer] [facility] Heart rate 80 /min 80 /min [facility] Diastolic blood 70 mm[Hg] 70 mm[Hg] [facility] pressure [employer] [facility] Systolic blood 98 mm[Hg] 98 mm[Hg] Smilax s pressure [employer] [facility] Respiratory rate 20 /min 20 /min [facility] [employer] [facility] Body temperature 36.56 May 36.56 May [facility] [employer] [facility] Heart rate 78 /min 78 /min [employer] [facility] Diastolic blood 60 mm[Hg] 60 mm[Hg] [facility] pressure [employer] [facility] Systolic blood 110 mm[Hg] 110 mm[Hg] Smilax s pressure [employer] Body mass index 48.95 kg/m2 48.95 kg/m2 [facility] (BMI) [Ratio] [employer] [facility] Body weight 136.533 kg 136.533 kg [email or web address] Respiratory rate 18 /min 18 /min [facility] [employer] [facility] Body temperature 36.56 May 36.56 May [facility] [employer] [facility] Heart rate 80 /min 80 /min [email or web address] Diastolic blood 70 mm[Hg] 70 mm[Hg] [facility] pressure [employer] [facility] Systolic blood 128 mm[Hg] 128 mm[Hg] Smilax s pressure [employer] Oxygen saturation 98 % 98 % [facility] in Arterial blood [employer] by [facility] Body mass index 48.95 kg/m2 48.95 kg/m2 [facility] (BMI) [Ratio] [employer] Body weight 136.533 kg 136.533 kg [email or web address] Body height 167 cm 167 cm [facility] Respiratory rate 14 /min 14 /min [facility] [employer] Body temperature 36.44 May 36.44 May [facility] [employer] Heart rate 98 /min 98 /min [facility] Diastolic blood 60 mm[Hg] 60 mm[Hg] [facility] [employer] Systolic blood 110 mm[Hg] 110 mm[Hg] Smilax s pressure [employer] Oxygen saturation 96 % 96 % [facility] in Arterial blood [facility] by Pulse oximetry [facility] Respiratory rate 18 /min 18 /min [facility] [employer] Body temperature 36.72 May 36.72 May [facility] [employer] Heart rate 80 /min 80 /min [facility] Diastolic blood 88 mm[Hg] 88 mm[Hg] [facility] [employer] Systolic blood 128 mm[Hg] 128 mm[Hg] Smilax s pressure [employer] Body mass index 48.97 kg/m2 48.97 kg/m2 [facility] (BMI) [Ratio] [employer] Body weight 136.578 kg 136.578 kg [email or web address] Body height 167 cm 167 cm [facility] Oxygen saturation 98 % 98 % [facility] in Arterial blood [facility] by Pulse [facility] Body mass index 48.30 kg/m2 48.30 kg/m2 [facility] (BMI) [Ratio] [employer] Body weight 134.718 kg 134.718 kg [email or web address] Body height 167 cm 167 cm [facility] Respiratory rate 14 /min 14 /min [facility] [employer] Body temperature 37.33 May 37.33 May [facility] [employer] Heart rate 100 /min 100 /min [email or web address] Diastolic blood 68 mm[Hg] 68 mm[Hg] [facility] pressure [employer] Systolic blood 118 mm[Hg] 118 mm[Hg] Smilax s pressure [employer] Oxygen saturation 98 % 98 % [facility] in Arterial blood [employer] [facility] Pulse oxim[facility] Body mass index 47.49 kg/m2 47.49 kg/m2 [facility] (BMI) [Ratio] [employer] Body weight 132.45 kg 132.45 kg [email or web address] Body height 167 cm 167 cm [facility] Respiratory rate 12 /min 12 /min [facility] [employer] Body temperature 36.44 May 36.44 May [facility] [employer] Heart rate 88 /min 88 /min [facility] Diastolic blood 70 mm[Hg] 70 mm[Hg] [facility] pressure [employer] Systolic blood 102 mm[Hg] 102 mm[Hg] Smilax s pressure [employer] Oxygen saturation 92 % 92 % [facility] in Arterial blood [facility] by Pulse oxim[facility] Body mass index 45.86 kg/m2 45.86 kg/m2 [facility] (BMI) [Ratio] [employer] [facility] Body weight 133.811 kg 133.811 kg [facility] Body height 170.8 cm 170.8 cm [facility] Respiratory rate 12 /min 12 /min [facility] [employer] Body temperature 36.67 May 36.67 May [facility] [employer] Heart rate 88 /min 88 /min [facility] Diastolic blood 80 mm[Hg] 80 mm[Hg] [facility] [employer] Systolic blood 120 mm[Hg] 120 mm[Hg] Smilax s pressure [employer] Oxygen saturation 95 % 95 % [facility] in Arterial blood [facility] by Pulse oximetry [facility] Respiratory rate 18 /min 18 /min [facility] [employer] Body temperature 36.44 May 36.44 May [facility] [employer] [facility] Heart rate 100 /min 100 /min [facility] Diastolic blood 80 mm[Hg] 80 mm[Hg] [facility] [employer] Systolic blood 123 mm[Hg] 123 mm[Hg] Smilax s pressure [employer] [facility] Body mass index 46.99 kg/m2 46.99 kg/m2 [facility] (BMI) [Ratio] [employer] Body weight 136.079 kg 136.079 kg [facility] Body height 170.2 cm 170.2 cm [facility] Oxygen saturation 96 % 96 % [facility] in Arterial blood [employer] by Pulse oxim[facility] Body mass index 45.55 kg/m2 45.55 kg/m2 [facility] (BMI) [Ratio] [employer] Body weight 132.904 kg 132.904 kg [email or web address] Body height 170.8 cm 170.8 cm [facility] Respiratory rate 14 /min 14 /min [facility] [employer] Body temperature 35.89 May 35.89 May [facility] [employer] Heart rate 96 /min 96 /min [facility] Diastolic blood 78 mm[Hg] 78 mm[Hg] [facility] pressure [employer] Systolic blood 116 mm[Hg] 116 mm[Hg] Smilax s pressure [employer] Oxygen saturation 92 % 92 % [facility] in Arterial blood [employer] by Pulse oximetry [facility] Respiratory rate 15 /min 15 /min [facility] [employer] Heart rate 96 /min 96 /min [facility] Diastolic blood 86 mm[Hg] 86 mm[Hg] [facility] pressure [employer] Systolic blood 121 mm[Hg] 121 mm[Hg] Smilax s pressure [employer] Body mass index 40.18 kg/m2 40.18 kg/m2 [facility] (BMI) [Ratio] [employer] Body weight 127.007 kg 127.007 kg [email or web address] Body height 177.8 cm 177.8 cm [facility] Body temperature 36.72 May 36.72 May [facility] [employer] [facility] Body temperature 36.33 May 36.33 May [facility] [employer] Oxygen saturation 96 % 96 % [facility] in Arterial blood [employer] by Pulse oxim[facility] Respiratory rate 21 /min 21 /min [facility] [employer] [facility] Heart rate 85 /min 85 /min [facility] Diastolic blood 88 mm[Hg] 88 mm[Hg] [facility] pressure [employer] Systolic blood 155 mm[Hg] 155 mm[Hg] Smilax s pressure [facility] [facility] Body mass index 40.18 kg/m2 40.18 kg/m2 [facility] (BMI) [Ratio] [employer] Body weight 127.007 kg 127.007 kg [facility] Body height 177.8 cm 177.8 cm [facility] Oxygen saturation 98 % 98 % [facility] in Arterial blood [facility] by Pulse oxim[facility] Body mass index 44.66 kg/m2 44.66 kg/m2 [facility] (BMI) [Ratio] [employer] [facility] Body weight 128.368 kg 128.368 kg [facility] [employer] [facility] Body height 169.5 cm 169.5 cm [email or web address] Respiratory rate 12 /min 12 /min [facility] [employer] Body temperature 36.28 May 36.28 May [facility] [employer] [facility] Heart rate 68 /min 68 /min [facility] Diastolic blood 80 mm[Hg] 80 mm[Hg] [facility] [employer] [facility] Systolic blood 122 mm[Hg] 122 mm[Hg] Smilax s pressure [employer] [facility] Oxygen saturation 96 % 96 % [facility] in Arterial blood [employer] by Pulse o[employer]etry [facility] Diastolic blood 53 mm[Hg] 53 mm[Hg] [facility] pressure [employer] Systolic blood 107 mm[Hg] 107 mm[Hg] Smilax s pressure [facility] [facility] Respiratory rate 17 /min 17 /min [facility] [employer] [facility] Body temperature 37.11 May 37.11 May [facility] [employer] Heart rate 58 /min 58 /min [facility] [employer] Body mass index 38.06 kg/m2 38.06 kg/m2 [facility] (BMI) [Ratio] [employer] [facility] Body weight 110.224 kg 110.224 kg [facility] Measured [employer] [facility] Body height 170.2 cm 170.2 cm [email or web address] Oxygen saturation 98 % 98 % [facility] in Arterial blood [employer] by Pulse [facility]xim[facility] Body mass index 37.71 kg/m2 37.71 kg/m2 [facility] (BMI) [Ratio] [employer] [facility] Body weight 108.41 kg 108.41 kg [facility] Measured [employer] [facility] Body height 169.5 cm 169.5 cm [facility] [facility] Respiratory rate 16 /min 16 /min [facility] [employer] [facility] Body temperature 36.44 May 36.44 May [facility] [employer] [facility] Heart rate 74 /min 74 /min [facility] Diastolic blood 70 mm[Hg] 70 mm[Hg] [facility] pressure [employer] [facility] Systolic blood 94 mm[Hg] 94 mm[Hg] Smilax s pressure [employer] [facility] Oxygen saturation 98 % 98 % [facility] in Arterial blood [employer] by Pulse oximetry [facility] Respiratory rate 17 /min 17 /min [facility] [employer] [facility] Body temperature 36.33 May 36.33 May [facility] [employer] [facility] Heart rate 87 /min 87 /min [facility] Diastolic blood 75 mm[Hg] 75 mm[Hg] [facility] pressure [employer] [facility] Systolic blood 121 mm[Hg] 121 mm[Hg] Smilax s pressure [employer] [facility] Body mass index 39.94 kg/m2 39.94 kg/m2 [facility] (BMI) [Ratio] [employer] [facility] Body weight 108.863 kg 108.863 kg [facility] Measured [employer] [facility] Body height 165.1 cm 165.1 cm [email or web address] Patient Treatment Plan of Care Planned Activity Planned Date Details Description Data Source (s) Propranolol Hydrochloride 01/08/2020 Francisco [facility]avier [facility] 10 MG Oral Tablet 12:00:00 AM [employer] [facility] Clonazepam 0.5 MG Oral 12/25/2019 [facility] Tablet 12:00:00 AM [employer] Ibuprofen 200 MG Oral 12/22/2019 [facility] Tablet 12:00:00 AM [employer] olanzapine 5 MG Oral Tablet 12/09/2019 [facility] 09:00:00 AM [employer] Olmesartan medoxomil 20 MG 12/09/2019 [...] 12:00:00 AM EDT [facility] Rouse Carbonate 300 MG 11/30/2019 [facility] [...] Bela Release Oral Tablet 12:00:00 AM EDT [employer] [facility] [employer] Bisacodyl 5 MG Delayed 10/31/2019 [facility] Release Oral Tablet 01:50:17 PM EDT [employer] [facility] Acetaminophen 325 MG Oral 10/29/2019 Francisco J[facility] Tablet 02:44:40 PM EDT [facility] sodium chloride (NS) flush 10/29/2019 [facility] 5-40 mL 11:01:53 AM EDT [facility] 24 HR Bupropion 10/17/2019 [facility] Hydrochloride 150 MG 12:00:00 AM EDT [employer] [facility] Extended Release Oral Tablet 24 HR Bupropion 10/17/2019 [facility] Hydrochloride 300 MG 12:00:00 AM EDT [employer] [facility] Extended Release Oral Tablet Vraylar 3 mg capsule 09/03/2019 [facility] 12:00:00 AM EDT [facility] Amitriptyline Hydrochloride 08/20/2019 [facility] 150 MG Oral Tablet 12:00:00 AM EST [facility] Rouse Carbonate 150 MG 08/16/2019 [facility] Oral Capsule 12:00:00 AM EST [facility] Prednisone 50 MG Oral 08/16/2019 [facility] Tablet 12:00:00 AM [facility] Cyclobenzaprine 07/21/2019 [facility] hydrochloride 10 MG Oral 12:00:00 AM [facility] Tablet Acetaminophen 325 MG / 07/21/2019 [facility] Oxycodone Hydrochloride 5 12:00:00 AM EST [facility] MG Oral Tablet VRAYLAR 6 mg capsule 07/07/2019 [facility] 12:00:00 AM EST [facility] valacyclovir 1000 MG Oral 07/17/2018 Francisco Javier [facility] Tablet 12:00:00 AM [facility] Risperidone 1 MG Oral 12/07/2017 [facility] Tablet 12:00:00 AM ED [facility] Alprazolam 1 MG Oral Tablet 12/07/2017 [facility] 12:00:00 AM ED [facility] lamotrigine 25 MG Oral 12/07/2017 [facility] Tablet 12:00:00 AM [facility] Clonazepam 2 MG Oral Tablet Bon [facility] I nc cariprazine (Vraylar) [address] [facility] I nc 24 HR Bupropion Bon [facility] Hydrochloride 300 MG [facility] Extended Release Oral Tablet fluoxetine HCl (PROZAC PO) B on [facility] I nc ziprasidone 80 MG Oral Bon [facility] valacyclovir 500 MG Oral Bon [facility] Tablet [Valtrex] [facility]
[2020-03-26] MEDS ORDERED: KETAMINE HCL 500 MG/10 ML VIAL ONE (07:47)
[2020-03-26] MEDS ORDERED: PROPOFOL 20 ML ONE ×2 (07:48)
[2020-03-26] MEDS ORDERED: KETOROLAC TROMETHAMINE 30 MG/1 ML VIAL ONE (07:48)
[2020-03-26] MEDS ORDERED: ONDANSETRON 4 MG/2 ML VIAL ONE (07:48)
[2020-03-26] MEDS ORDERED: SUCCINYLCHOLINE CHLORIDE 200 MG/10 ML SYRINGE ONE (07:49)
[2020-03-26 08:41] VITALS: TEMP 97
[2020-03-26 09:07] VITALS: BP 114/66; PULSE 73
== END 2020-03-26 09:09 | disposition home or self-care (01) ==
LOC: FECT 06:11
PROVIDERS: ATTEND Psychiatry & Neurology Psychiatry
PROC: GZB4ZZZ Other Electroconvulsive Therapy (ICD-10-PCS; principal; 2020-03-26 08:00)
DX: F32.9 Major depressive disorder, single episode, unspecified (principal)
CPT/HCPCS: 90870; 94760

== ENCOUNTER 2020-03-29 06:20 | Day surgery (SDC) | payer OTHER ==
[2020-03-22 07:30] VITALS: BMI 47.4
--- OUTSIDE RECORDS SUMMARY | 2020-03-29 06:32 | XMS ---
[...] is protected by Article 27-F of the [place] State Public Health law. If you continue you may haveaccess to information: Regarding HIV / AIDS; Provided by facilities licensed or operated by the [facility] Office of Mental Health; or Provided by the [facility] Office for People With Developmental Disabilities. If such information is present, then the following [facility] mandated warning applies: This information has been [...] law may result in a fine or fdc sentence or both. A general authorization for the release of medical or other information is NOT sufficient authorization for further disclosure. Encounters Encounter Providers Location Date Indications Data Source(s ) Outpatient 01/08/2020 03:30:00 [facility] PM EDT - 01/12/2020 [facility] 10:23:35 AM EDT Patient discharged. Attender: MARIYA CATHERINE 01/01/2020 12:00:00 AM [facility] Attender: MAURICIO 12/30/2019 12:00:00 AM [facility] Attender: MARIYA CATHERINE 12/29/2019 12:00:00 AM [facility] 12/25/2019 04:00:00 PM [facility] 06:48:40 [facility] PM EDT Patient discharged. OL 12/25/2019 12:00:00 [facility] 11:59:00 PM EDT Attender: MARIYA 12/25/2019 12:00:00 AM [facility] Attender: SUSI LONGO 12/25/2019 12:00:00 AM [facility] Attender: MAURICIO 12/24/2019 12:00:00 AM [facility] Attender: MARIYA 12/22/2019 12:00:00 AM [facility] Attender: SUSI LONGO 12/22/2019 12:00:00 AM [facility] Attender: MAURICIO 12/19/2019 12:00:00 AM [facility] Attender: MARIYA 12/18/2019 12:00:00 AM [facility] Attender: GLADIS FUNEZ 12/18/2019 12:00:00 AM [facility] Attender: SUSI LONGO 12/17/2019 12:00:00 AM [facility] Attender: MAURICIO 12/16/2019 12:00:00 AM [facility] Attender: MARIYA 12/15/2019 12:00:00 AM [facility] Attender: XANDER COLBERT 12/13/2019 12:00:00 AM [facility] Outpatient 12/12/2019 12:00:00 PM Francisco Javier n [facility] EDT - 12/12/2019 [facility] 01:20:23 PM EDT Patient discharged. Attender: ROSSI 12/08/2019 05:55:36 [facility] PM EDT - 01/02/2020 [facility] 12:00:00 AM EDT System In c Inpatient Admitter: RITIKA 12/05/2019 12:00:00 [facility]T - 12/08/2019 [facility] 03:44:00 PM EDT General Weakness Patient discharged. Outpatient 12/05/2019 12:00:00 AM EDT [facility] Outpatient 12/01/2019 03:45:00 PM EDT - [facility] 12/01/2019 05:01:16 PM EDT Inc Patient discharged. Outpatient 11/14/2019 01:00:00 PM EDT - [facility] 11/18/2019 11:56:43 AM EDT System Inc Patient discharged. Outpatient 11/10/2019 09:00:00 AM EDT - [facility] 11/10/2019 04:44:05 PM EDT System Inc Patient discharged. Inpatient Admitter: RITIKA CANAS 10/29/2019 12:00:00 AM let hargic [facility] EDT - 11/03/2019 [facility] 04:02:00 PM EDT lethargic Patient discharged. Outpatient 09/15/2019 08:22:58 AM EDT [facility] - 09/15/2019 11:59:00 PM Hospital EDT Outpatient 09/10/2019 04:00:00 PM EDT [facility] Outpatient 09/04/2019 03:15:00 PM EDT [facility] Outpatient 08/19/2019 07:31:00 AM EST [facility] ([facility]) Outpatient 08/18/2019 06:35:00 AM EST [facility] ([facility]) Outpatient 08/17/2019 07:16:00 AM EST NEXTGEN ([facility]) Emergency 08/16/2019 12:00:00 AM EST Shortness of Breath [facility] - 08/16/2019 10:45:00 PM Hospital EST Shortness of Breath Patient discharged. Outpatient 08/11/2019 12:05:00 AM EST [facility] Emergency 08/10/2019 12:00:00 AM EST - Chest P ain [facility] 08/11/2019 01:42:00 AM EST Hospital Chest Pain Patient discharged. Outpatient 07/21/2019 04:15:00 PM EST - [facility] 07/22/2019 10:51:43 AM EST System Inc Patient discharged. Immunizations Vaccine Date Status Description Data Source(s) New in 2012. 09/04/2019 completed Influenza 09/04/2019 [facility] IIV4 12:00:00 AM EDT Vaccine (Quad) [facility] IIV3. This is one 07/19/2018 completed Influenza 07/19/2018, [facility] of two codes 12:00:00 AM EST Vaccine 04/30/2014 Bela replacing CVX 15, He alth which is being [employer] retired. Influenza, 04/01/2016 completed Influenza 04/01/2016 [facility] injectable, MDCK, 12:00:00 AM EDT Vaccine (Quad) [facility] preservative [facility] quadrivalent Tdap 12/11/2014 completed Tdap 12/11/2014 [facility] 12:00:00 AM EDT [facility] [employer] [facility] IIV3. This is one 04/30/2014 completed Influenza 07/19/2018, [facility] of two codes 12:00:00 AM EST Vaccine 04/30/2014 Bela replacing CVX 15, He alth which is being [employer] retired. RAMAKRISHNA 06/12/2013 completed Influenza 06/12/2013 [facility] 12:00:00 AM EST Vaccine Moira ity (Trivalent) [facility] Medications Medication Brand Start Product Dose Route Administrative Pharmacy [facility] Indications Reaction Description Data Name Date Form Instructions Instructions Source(s) Propranolol propra 10 mg Oral active essential T stephanie 1 Tab Bon Hydrochlori noloL 2019 tremor by mouth S [facility]ours de 10 MG (BETO 12:00: three (3) Ch arity Oral Tablet AL) 10 00 AM times maty [facility] propranoloL mg EDT Indications: System Inc [...] Tablet tablet 5 mg EDT dose (after [facility] OLANZapine last Health (ZyPREXA) modification) S ystem tablet 5 mg on [employer] 12/09/19 at 0900, Until Discontinued Medication [...] OLANZapine mg 12/07/[address] [facility] (ZyPREXA) 1400, Until Sys tem tablet 2.5 Discontinued I nc mg Medication administered onsite [place] lithium 12/07/2019 300 Oral active 300 mg , Oral, Bon Carbonate carbonate SR 02:00:00 PM mg 2 TIMES DAILY, [facility] 300 MG (LITHOBID) EDT First dose o n Bela Extended tablet 300 Sun 0 at [facility] Release Oral mg 1400, Until System Tablet Discontinued Inc lithium carbonate SR (LITHOBID) tablet 300 mg Medication administered onsite Losartan losartan 12/07/2019 50 Oral active 50 m g, Oral, Bon Potassium 50 (COZAAR) 01:00:00 PM mg D AILY, [facility] MG Oral tablet 50 EDT dose on Sun Bela Tablet mg 12/07/19 at [facility] losartan 1300, Until Syst em (COZAAR) Discontinued Inc tablet 50 mg Medication administered onsite furosemide 95448-549-00 12/07/2019 20 IntraVENous complete d 20 mg, [...] 12/13/19 at 0900 Medication administered onsite furosemide 56960-962-85 12/06/2019 20 IntraVENous complete d edema 20 [...] il mg Discontinued Medication administered onsite 0.9% 6690-1868-11 12/05/2019 100 IntraVENous aborted 100 mL/hr, at [...] mg tablet Inc Shared psychotic disorder (HCC) [place] lithium 11/30/2019 aborted Bon Carbonate 300 carbonate [...] (DULCOLAX) 5 Inc mg EC tablet cariprazine 634198 11/01/2019 6 mg Oral active 6 m [...] t dose on Bela hydrocortisone 11/01/19 at [facility] (HYTONE) 2.5 % 1800, Unti l System ointment Discontinued Inc Medication administered onsite Docusate docusate 10/31/2019 200 Oral active 200 mg, Oral, Bon Sodium 100 sodium 02:00:00 PM mg DAILY , [facility] MG Oral (COLACE) EDT dose on Sun C harity Capsule capsule 200 10/31/19 at [facility] docusate mg 1400, Until Syst [...] haloperidoL tablet 5 mg EDT ONCE, 1 [facility] (HALDOL) dose, [facility] tablet 5 mg Denise System 10/30/19 [facility] at 2100 Medication administered onsite amitriptyline 10/30/2019 150 mg Oral active 1 50 mg, Oral, Bon (ELAVIL) tablet 09:00:00 PM EV AN BEDTIME, [facility] 150 mg EDT First dose on [facility] ity Denise 10/30/19 at [facility] 2100, Until System I nc Discontinued Medication administered onsite Haloperidol 2 haloperidoL 10/30/2019 2 mg Oral aborted 2 mg, Oral, Bon MG Oral (HALDOL) 08:01:20 PM EVERY 6 [facility] Tablet tablet 2 mg EDT HOURS Ch arity haloperidoL NEEDED, [facility] h (HALDOL) Starting Denise Sys tem tablet 2 mg 10/30/19 at [facility] 2000, Until 10/31/19 at 2043, Psychosis, Agitation Medication administered onsite [place] lithium 10/30/2019 300 Oral active 300 mg , Oral, Bon Carbonate carbonate 12:00:00 PM mg 2 T IMES DAILY, [facility] 300 MG Oral tablet 300 EDT First d ose on Bela Tablet mg Denise 10/30/19 at [facility] lithium 1200, Until Syste m carbonate Discontinued In c tablet 300 mg Medication administered onsite Clonazepam 1 clonazePAM 10/30/2019 1 mg Oral active 1 mg, Oral, 2 Bon MG Oral (KlonoPIN) 12:00:00 PM TIME S DAILY, [facility] Tablet tablet 1 mg EDT First dose on [facility] clonazePAM [facility] 10/30/19 at [facility] (KlonoPIN) 1200, Until Sy stem tablet 1 mg Discontinued [facility] Medication administered onsite 0.9% 1285-6773-52 10/29/2019 100 IntraVENous aborted 100 mL/hr, at Bon sodium 02:55:00 PM mL/h 100 mL/hr, [facility] chloride EDT IntraVENous, Jagruti rity infusion CONTINUOUS, [facility] Starting Wed System 10/29/19 at [facility] 1455, Until 11/01/19 at 1446 Medication administered onsite 0.4 ML enoxaparin 10/29/2019 40 SubCUTAneous active 40 mg, Bon Enoxaparin (LOVENOX) 02:55:00 PM mg Gallardo bCUTAneous, [facility] sodium 100 injection 40 EDT EVERY 24 Bela MG/ML mg HOURS, [facility] Prefilled dose on Sun Sys tem Syringe 10/29/19 at [facility] enoxaparin 1455, Until (LOVENOX) Discontinued injection 40 mg Medication administered onsite Acetaminophen acetaminophen 10/29/2019 650 Oral active 650 mg, Oral, Bon 325 MG Oral (TYLENOL) 02:44:40 PM mg E VERY 4 HOURS [facility] Tablet tablet 650 mg EDT NEEDED , Bela acetaminophen Starting We [facility] (TYLENOL) 10/29/19 at [facility] tablet 650 mg 1444, Until Inc Discontinued, Mild Pain, Fever Medication administered onsite sodium 85290-752-31 10/29/2019 mL IntraVENous active 5-40 mL, Bon chloride 02:00:00 PM IntraVENo us, [facility] (NS) flush EDT EVERY 8 Charit y 5-40 mL HOURS, First Heal dose on Sun System 10/29/19 at Inc 1400, Until Discontinued Medication administered onsite sodium 90484-514-44 10/29/2019 mL IntraVENous active 5-40 mL, Bon [...] XL) 150 mg tablet Vraylar 3 mg 38311-848-80 09/03/2019 6 Oral aborted depre ssion Take [...] EST NOW, 1 Bela chewable tablet dose, [facility] 162 mg 08/16/19 System at 2103 Inc Medication administered onsite famotidine 08/16/2019 20 IntraVENous aborted 20 mg, Bon (PF) (PEPCID) 09:02:00 PM mg Intr aVENous, [facility] 20 mg in 0.9% EST EVERY 12 Ch arity sodium HOURS, [facility] h chloride 10 dose on Sat S ystem mL injection 08/16/19 at [facility] 2102, Until Discontinued Medication administered onsite methylPREDNISolone 487357 08/16/2019 125 IntraVENous comple hyun 125 mg, Bon (PF) (Solu-MEDROL) 09:02:00 PM mg IntraVENous, [facility] injection 125 mg EST NOW, 1 d ose, Bela 08/16/19 Health at 2102 System Inc Medication administered onsite 0.9% 4211-6580-60 08/16/2019 1000 IntraVENous completed 1,000 mL, at Bon sodium 09:02:00 PM mL 1,000 mL/hr , [facility] chloride EST IntraVENous, Jgaruti rity infusion ONCE, 1 dose, He alth 1,000 mL 08/16/19 Syst em at 2102 Inc Medication administered onsite Prednisone 50 predniSONE 08/16/2019 50 mg Oral active Take 1 Bon MG Oral Tablet (DELTASONE) 12:00:00 AM Tab by [facility] predniSONE 50 mg tablet EST mouth Bela (DELTASONE) 50 daily Heal th mg tablet for 3 System days. Inc [place] lithium 08/16/2019 2 Oral active Take 2 [...] back pain due to trauma VRAYLAR 6 46493-057-08 07/07/2019 6 mg Oral aborted Bipolar Take [...] System DAILY Inc NEEDED FOR ANXIETY cariprazine 078111 6 mg Oral aborted Take 6 B [...] libertarian's [place] Inform ation relationship to [place] [facility] [id number] [facility] [id number] [facility] [id number] [facility] HMO [id number] [facility] Commerical [id number] [facility] [id number] [facility] [id number] 900 HEALTH PLAN [facility] [id number] PLAN [facility] [id number] 900 HEALTH PLAN POLO [id number] POLO [id number] CIGNA O [id number] [facility] PPO [id number] [place] 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 [id number] [facility] [id number] 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 PPO [id number] PLAN [facility] [id number] PLAN 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 [id number] [facility] [id number] [facility] PPO [id number] [place] [address] Problems, Conditions, and Diagnoses Code Display Name Description Problem Type Effective Data Dates Source(s) T88.7XXA Qly-bxkh-svrfnma Zxj-nrsk-ghqvtap [id number] 12/05/2019 Francisco Javier n [facility] adverse reaction to adverse reaction to 12:00:0 0 AM Bela medication medication [facility] [employer] [facility] T50.905A Adverse drug Adverse drug 57047539 12/05/2019 [facility] s reaction, initial reaction, initial 12:00:00 AM [facility] encounter encounter [facility] [employer] G93.40 Encephalopathy acute Encephalopathy acute 63924040 12/04 [facility] 12:00:00 AM Bela [employer] F31.4 Bipolar disorder Bipolar disorder [id number] 10/29/2019 Francisco Javier n [facility] with severe with severe 12:00:00 AM Bela depression depression [facility] [employer] E55.9 Vitamin D deficiency Vitamin D deficiency 15357024 09/03 [facility] 12:00:00 AM [facility] [employer] [facility] F41.8 Mixed anxiety and Mixed anxiety and 12047752 09/04/2019 [facility] depressive disorder depressive disorder 12:00:0 0 AM [employer] E66.01 Morbid obesity Morbid obesity 97906133 07/21/2019 [facility] 12:00:00 AM [employer] Z98.84 Status post gastric Status post gastric [id number] 020 [facility] bypass for obesity bypass for obesity 12:00:00 AM [employer] F32.9 Depressive disorder Depressive disorder 41809717 020 [facility] 12:00:00 AM [employer] F31.9 Bipolar disorder Bipolar disorder 04484623 07/21/2019 Francisco Javier n [facility] 12:00:00 AM [employer] F41.9 Anxiety Anxiety 29720663 07/21/2019 [facility] 12:00:00 AM [employer] F32.9 Depression Depression 44999940 07/20/2018 [facility] 12:00:00 AM [employer] E66.01 Severe obesity Severe obesity 47163872 07/19/2018 [facility] 12:00:00 AM [employer] [id number] Spells Spells 86879636 04/08/2016 [facility] 12:00:00 AM [employer] G40.909 Seizure disorder Seizure disorder 24959248 04/30/2014 Francisco Javier n [facility] 12:00:00 AM [employer] M79.2 Neuropathic pain of Neuropathic pain of 42751950 014 [facility] shoulder shoulder 12:00:00 AM [employer] G47.00 Insomnia Insomnia 91874074 11/04/2013 [facility] 12:00:00 AM [employer] Z98.84 H/O gastric bypass H/O gastric bypass 14665921 3 [facility] 12:00:00 AM [employer] G25.2 Other specified Other specified Diagnosis 01/08/2020 [facility] forms of tremor forms of tremor 03:17:29 PM [facility] [email or web address] F31.4 Bipolar disorder, Bipolar disorder, Diagnosis 12/25/2019 [facility] - current episode current episode 04:40:00 PM Goo d depressed, severe, depressed, severe, EDT [facility]oration[facility] without psychotic without psychotic Hospital features features F41.9 Anxiety disorder, Anxiety disorder, Diagnosis 12/25/2019 [facility] unspecified unspecified 04:04:24 PM [facility] R25.1 Tremor, unspecified Tremor, unspecified Diagnosis 020 [facility] 04:04:24 PM [facility] Z98.84 Bariatric surgery Bariatric surgery Diagnosis 12/25/2019 [facility] status status 04:04:24 PM [facility] T88.7XXA Unspecified adverse Unspecified adverse Diagnosis 020 [facility] - effect of drug or effect of drug or 11:10:37 AM Good medicament, initial medicament, initial [facility] encounter encounter Hospital G93.40 Encephalopathy, Encephalopathy, Diagnosis 12/05/2019 [facility] - unspecified unspecified 11:10:37 AM [facility] R41.82 Altered mental Altered mental Diagnosis 12/05/2019 [facility] - status, unspecified status, unspecified 11:10:3 7 AM [facility] F51.04 Psychophysiologic Psychophysiologic Diagnosis 11/14/2019 [facility] insomnia insomnia 01:22:52 PM [facility] F32.2 Major depressive Major depressive Diagnosis 09/15/2019 [facility] - disorder, single disorder, single 08:22:58 AM G ood episode, severe episode, severe EDT Aidan ritan without psychotic without psychotic Hospital features features F41.8 Other specified Other specified Diagnosis 09/04/2019 [facility] anxiety disorders anxiety disorders 03:49:01 PM [facility] F32.2 Major depressive Major depressive Diagnosis 09/04/2019 Francisco Javier n [facility] disorder, single disorder, single 03:49:01 PM C harity episode, severe episode, severe EDT Heal th without psychotic without psychotic System Inc features features Z23 Encounter for Encounter for Diagnosis 09/04/2019 [facility] immunization immunization 03:49:01 PM [facility] T78.40XA Allergy, Allergy, Diagnosis 08/16/2019 [facility] - unspecified, initial unspecified, initial 08:39 :16 PM Good encounter encounter [facility] R06.00 Dyspnea, unspecified Dyspnea, unspecified Diagnosis 08/10 [facility] - 11:27:27 PM [facility] F31.75 Bipolar disorder, in Bipolar disorder, in Diagnosis 07/21 [facility] partial remission, partial remission, 04:40:28 PM Bela most recent episode most recent episode EST Health depressed depressed [facility] [phone] essential tremor Diagnosis [facility] [id number] Bipolar disorder Diagnosis [facility] with severe [facility] depression ([facility]) [facility] [id number] Anxiety Diagnosis [facility] [phone] hypertension Diagnosis [facility] [phone] depression Diagnosis [facility] 883 883 depression Diagnosis [facility] [phone] edema Diagnosis [facility] 883 883 depression Diagnosis [facility] [phone] evangelina associated Diagnosis [facility] with bipolar [facility] 1255 1255 hypertension Diagnosis [facility] [id number] Anxiety Diagnosis [facility] 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[facility] disorder (disorder) disorder ([facility]) [facility] 3762 3762 depression Diagnosis Bon [facility] associated with [facility] bipolar disorder [facility] [id number] Acute low back pain Diagnosis Bon [facility] due to trauma [facility] [id number] Acute low back pain Diagnosis Bon [facility] due to trauma [facility] [id number] Bipolar disorder, in Diagnosis [facility] partial remission, Charit y most recent episode Healt h depressed ([facility]) System In c [id number] Herpes zoster Diagnosis Bon [facility] cephalicus [facility] Surgeries/Procedures Procedure Description Date Indications Data Source(s) HC HC Routine 12/25/2019 Bipolar 12/25/2019 Bipolar Francisco Javier n LITHIUM LITHIUM 4:41 PM EDT disorder 04:41:00 PM disorde r [facility] with severe EDT with severe [facility] depression depression He alth ([facility]) ([facility]) System Inc Bipolar disorder with severe depression ([facility]) GLUCOSE, POC GLUCOSE, POC Routine 12/08/2019 12/08/2019 Bon 11:35 AM 11:35:00 AM Sec ours EDT EDT [facility] METABOLIC METABOLIC Routine 12/07/2019 12/07/2019 Bon PANEL, BASIC PANEL, BASIC 4:40 AM EDT 04:40:00 A M [facility] EEG 12-26 HR EEG 12-26 HR Routine 12/06/2019 12/06/2019 Bon W/VIDEO W/VIDEO 10:25 AM 10:25:08 AM [facility] LITHIUM HC LITHIUM Routine 12/06/2019 12/06/2019 Bon 4:25 AM EDT 04:25:00 AM [facility] HC LACTIC ACID HC LACTIC ACID STAT 12/05/2019 020 Bon 7:20 PM EDT 07:20:00 PM [facility] HC AMMONIA HC AMMONIA STAT 12/05/2019 12/05/2019 Bon 7:20 PM EDT 07:20:00 PM [facility] MRI BRAIN WO MRI BRAIN WO STAT 12/05/2019 12/05/2019 Bon CONT CONT 4:50 PM EDT 04:50:12 PM [facility] EEG 12-26 HR EEG 12-26 HR STAT 12/05/2019 12/05/2019 Bon W/VIDEO W/VIDEO 3:19 PM EDT 03:19:24 PM [facility] CULTURE, URINE CULTURE, URINE Routine 12/05/2019 020 Bon 2:45 PM EDT 02:45:00 PM [facility] URINALYSIS W/ URINALYSIS W/ STAT 12/05/2019 0 Bon RFLX RFLX 2:45 PM EDT 02:45:00 PM [facility] MICROSCOPIC MICROSCOPIC [facility] BILIRUBIN, BILIRUBIN, Routine 12/05/2019 12/05/2019 Bon CONFIRM CONFIRM 2:45 PM EDT 02:45:00 PM [facility] HC LACTIC ACID HC LACTIC ACID STAT 12/05/2019 020 Bon 12:40 PM 12:40:00 PM [facility] CULT[facility] HC CULTURE STAT 12/05/2019 12/05/2019 Bon BLOOD BLOOD 12:38 PM 12:38:00 PM Sec ours EDT EDT [facility] PROTHROMBIN PROTHROMBIN STAT 12/05/2019 12/05/2019 Bon TIME + INR TIME + INR 12:38 PM 12:38:00 PM [facility] EDT EDT [facility] CBC WITH CBC WITH STAT 12/05/2019 12/05/2019 Bon AUTOMATED DIFF AUTOMATED DIFF 12:38 PM 12:38:00 PM [facility] EDT EDT [facility] HC TROPONIN I HC TROPONIN I STAT 12/05/2019 0 Bon QUANT QUANT 12:38 PM 12:38:00 PM Sec ours EDT EDT [facility] METABOLIC METABOLIC STAT 12/05/2019 12/05/2019 Bon PANEL, PANEL, 12:38 PM 12:38:00 PM Sec ours COMPREHENSIVE COMPREHENSIVE EDT EDT [facility] MAGNESIUM MAGNESIUM STAT 12/05/2019 12/05/2019 Bon 12:38 PM 12:38:00 PM Sec ours EDT EDT [facility] HC LITHIUM HC LITHIUM STAT 12/05/2019 12/05/2019 Bon 12:38 PM 12:38:00 PM Sec ours EDT EDT [facility] CT HEAD WO CT HEAD WO STAT 12/05/2019 12/05/2019 Bon CONT CONT 12:30 PM 12:30:54 PM [facility] EDT EDT [facility] HC CULTURE HC CULTURE STAT 12/05/2019 12/05/2019 Bon BLOOD BLOOD 12:30 PM 12:30:00 PM Sec [facility] EDT EDT [facility] XR PELV AP XR PELV AP STAT 12/05/2019 12/05/2019 Bon ONLY ONLY 12:14 PM 12:14:58 PM Sec [facility] EDT EDT [facility] XR CHEST PORT XR CHEST PORT STAT 12/05/2019 0 Bon 12:14 PM 12:14:51 PM Sec ours EDT EDT [facility] RT--OXYGEN RT--OXYGEN STAT 12/05/2019 12/05/2019 Bon CANNULA CANNULA 11:20 AM 11:20:37 AM Sec [facility] EDT EDT [facility] EEG DIGITAL EEG DIGITAL Routine 12/05/2019 12/05/2019 Bon ANALYSIS ANALYSIS 11:10 AM 11:10:37 AM [facility] EDT EDT [facility] CBC WITH CBC WITH STAT 10/30/2019 10/30/2019 Bon AUTOMATED DIFF AUTOMATED DIFF 6:40 AM EDT 06:40: 00 AM [facility] EDT [facility] METABOLIC METABOLIC STAT 10/30/2019 10/30/2019 Bon PANEL, BASIC PANEL, BASIC 6:40 AM EDT 06:40:00 A M [facility] EDT [facility] URINALYSIS W/ URINALYSIS W/ STAT 10/29/2019 0 Bon RFLX RFLX 6:34 PM EDT 06:34:00 PM [facility] MICROSCOPIC MICROSCOPIC EDT [facility] XR CHEST PORT XR CHEST PORT STAT 10/29/2019 0 Bon 12:09 PM 12:09:04 PM Sec ours EDT EDT [facility] CT HEAD WO CT HEAD WO STAT 10/29/2019 10/29/2019 Bon CONT CONT 11:47 AM 11:47:42 AM Sec ours EDT EDT [facility] HC GLUCOSE HC GLUCOSE Routine 10/29/2019 10/29/2019 Bon POCT POCT 11:26 AM 11:26:00 AM Sec [facility] EDT EDT [facility] PROTHROMBIN PROTHROMBIN STAT 10/29/2019 10/29/2019 Bon TIME + INR TIME + INR 10:45 AM 10:45:00 AM [facility] EDT EDT [facility] CBC WITH CBC WITH STAT 10/29/2019 10/29/2019 Bon AUTOMATED DIFF AUTOMATED DIFF 10:45 AM 10:45:00 AM [facility] EDT EDT [facility] HC PARTIAL HC PARTIAL STAT 10/29/2019 10/29/2019 Bon THROMBOPLASTIN THROMBOPLASTIN 10:45 AM 10:45:00 AM [facility] / PTT / PTT EDT EDT [facility] METABOLIC METABOLIC STAT 10/29/2019 10/29/2019 Bon PANEL, PANEL, 10:45 AM 10:45:00 AM [facility] COMPREHENSIVE COMPREHENSIVE EDT EDT [facility] HC LITHIUM HC LITHIUM STAT 10/29/2019 10/29/2019 Bon 10:45 AM 10:45:00 AM Sec [facility] EDT EDT [facility] XR SPINE LUMB XR SPINE LUMB [...] n [facility] 9:00 PM EST 02:00:00 AM [facility] Define My Style [facility] I nc CBC WITH AUTOMATED CBC WITH STAT 08/16/2019 0 [facility] DIFF AUTOMATED DIFF 9:00 PM EST 02:00:00 AM [facility] Define My Style [facility] I nc TROPONIN I TROPONIN I STAT 08/16/2019 08/17/2019 [facility] 9:00 PM EST 02:00:00 AM [facility] Define My Style [facility] I nc METABOLIC PANEL, METABOLIC PANEL, STAT 08/16/2019 [facility] COMPREHENSIVE COMPREHENSIVE 9:00 PM EST 02:00:00 AM [facility] [employer] My Style [facility] I nc MAGNESIUM MAGNESIUM STAT 08/16/2019 08/17/2019 [facility] 9:00 PM EST 02:00:00 AM [facility] Define My Style [facility] I nc LITHIUM LITHIUM STAT 08/16/2019 08/17/2019 Francisco Javier n [facility] 9:00 PM EST 02:00:00 AM [facility] [employer] My [employer] [facility] I nc INFLUENZA A <td><content ID="[id number]">INFLUENZA A & B 07/26 Bon & B AG AG (RAPID 05:18:00 AM [facility] (RAPID TEST) TEST)</content></td><td>STAT</td><td>08/11/2019 [facility] 12:18 AM EST</td><td></td><td><paragraph Health styleCode="header">Results for this procedure are System in the <content Inc styleCode="[id number]">results section</content>.</paragraph></td> PROTHROMBIN PROTHROMBIN STAT 08/11/2019 08/11/2019 Bon TIME + INR TIME + INR 12:01 AM 05:01:00 AM [facility] D DIMER D DIMER STAT 08/11/2019 08/11/2019 Francisco Javier n 12:01 AM 05:01:00 AM Sec ours [facility] CBC WITH CBC WITH STAT 08/11/2019 08/11/2019 Bon AUTOMATED DIFF AUTOMATED DIFF 12:01 AM 05:01:00 AM [facility] PTT PTT STAT 08/11/2019 08/11/2019 Francisco Javier n 12:01 AM 05:01:00 AM Sec ours [facility] TROPONIN I TROPONIN I STAT 08/11/2019 08/11/2019 Bon 12:01 AM 05:01:00 AM Sec ours [facility] METABOLIC METABOLIC STAT 08/11/2019 08/11/2019 Bon PANEL, PANEL, 12:01 AM 05:01:00 AM [facility] COMPREHENSIVE COMPREHENSIVE [facility] MAGNESIUM MAGNESIUM STAT 08/11/2019 08/11/2019 Bon 12:01 AM 05:01:00 AM Sec ours [facility] LITHIUM LITHIUM STAT 08/11/2019 08/11/2019 Francisco Javier n 12:01 AM 05:01:00 AM Sec ours [facility] LACTIC ACID LACTIC ACID STAT 08/11/2019 08/11/2019 Bon 12:01 AM 05:01:00 AM Sec ours [facility] BNP BNP STAT 08/11/2019 08/11/2019 Francisco Javier n 12:01 AM 05:01:00 AM Sec ours [facility] RT--OXYGEN RT--OXYGEN STAT 08/10/2019 08/11/2019 Bon CANNULA CANNULA 11:51 PM 04:51:27 AM [facility] EST EST [facility] [employer] [facility] EKG, 12 LEAD, EKG, 12 LEAD, STAT 08/10/2019 0 Bon INITIAL INITIAL 10:14 PM 03:14:27 AM [facility] EST EST [facility] XR SMALL BOWEL XR SMALL BOWEL Routine 08/02/2018 Morbid 019 Morbid Bon SERIES SERIES 11:01 AM obesity 04:01:14 PM obesity Sec [facility] EST (HCC) EST (HCC) [facility] Morbid obesity (HCC) CBC WITH AUTOMATED CBC WITH STAT 07/12/2018 9 [facility] DIFF AUTOMATED DIFF 12:40 AM EST 05:40:00 AM [facility] Define My Style [facility] I nc TROPONIN I TROPONIN I STAT 07/12/2018 07/12/2018 [facility] 12:40 AM EST 05:40:00 AM [facility] [employer] [facility] I nc METABOLIC PANEL, METABOLIC PANEL, STAT 07/12/2018 [facility] COMPREHENSIVE COMPREHENSIVE 12:40 AM EST 05:40:0 0 AM [facility] My [facility] I nc MAGNESIUM MAGNESIUM STAT 07/12/2018 07/12/2018 [facility] 12:40 AM EST 05:40:00 AM [facility] I nc RT--OXYGEN CANNULA RT--OXYGEN STAT 07/12/2018 019 [facility] CANNULA 12:21 AM EST 05:21:15 AM [facility] I nc Results ID Date Data Source [id number] 03/25/2020 09:42:00 AM EDT [facility] Name Value Range Interpretation Description Data Sup porting Code Source(s) Document(s ) SARS [facility] coronavirus 2 RNA This lab was ordered by [facility] and reported by [facility]. ID Date Data Source [id number] 03/22/2020 09:00:00 AM EDT [facility] Name Value Range Interpretation Description Data Sup porting Code Source(s) Document(s ) SARS [facility] coronavirus 2 RNA This lab was ordered by [facility] FRANCISCO and reported by [facility]. ID Date Data Source [id number] 03/19/2020 10:37:00 AM EDT [facility] Name Value Range Interpretation Description Data Sup porting Code Source(s) Document(s ) SARS [facility] coronavirus 2 RNA This lab was ordered by [facility] and reported by [facility]. ID Date Data Source [id number] 03/15/2020 10:30:00 AM EDT [facility] Name Value Range Interpretation Description Data Sup porting Code Source(s) Document(s ) SARS [facility] coronavirus 2 RNA This lab was ordered by [facility] and reported by [facility]. ID Date Data Source [id number] 03/12/2020 12:00:00 PM EDT [facility] Name Value Range Interpretation Description Data Sup porting Code Source(s) Document(s ) SARS [facility] coronavirus 2 RNA This lab was ordered by [facility] and reported by [facility]. ID Date Data Source [id number] 03/08/2020 10:18:00 AM EDT [facility] Name Value Range Interpretation Description Data Sup porting Code Source(s) Document(s ) SARS [facility] coronavirus 2 RNA This lab was ordered by [facility] and reported by [facility]. ID Date Data Source [id number] 03/04/2020 09:50:00 AM EDT [facility] Name Value Range Interpretation Description Data Sup porting Code Source(s) Document(s ) SARS [facility] coronavirus 2 RNA This lab was ordered by [facility] and reported by [facility]. ID Date Data Source [id number] 03/02/2020 12:15:00 PM EDT [facility] Name Value Range Interpretation Description Data Sup porting Code Source(s) Document(s ) SARS [facility] coronavirus 2 RNA This lab was ordered by [facility] and reported by [facility]. ID Date Data Source [id number] 02/27/2020 09:15:00 AM EDT [facility] Name Value Range Interpretation Description Data Sup porting Code Source(s) Document(s ) SARS [facility] coronavirus 2 RNA This lab was ordered by [facility] and reported by [facility]. ID Date Data Source [id number] 02/23/2020 11:40:00 AM EDT [facility] Name Value Range Interpretation Description Data Sup porting Code Source(s) Document(s ) SARS [facility] coronavirus 2 RNA This lab was ordered by [facility] and reported by [facility]. ID Date Data Source [id number] 02/19/2020 09:56:00 AM EDT [facility] Name Value Range Interpretation Description Data Sup porting Code Source(s) Document(s ) SARS [facility] coronavirus 2 RNA This lab was ordered by [facility] and reported by [facility]. ID Date Data Source [id number] 02/16/2020 08:40:00 AM EDT [facility] Name Value Range Interpretation Description Data Sup porting Code Source(s) Document(s ) SARS [facility] coronavirus 2 RNA This lab was ordered by [facility] and reported by [facility]. ID Date Data Source [id number] 02/13/2020 10:05:00 AM EDT [facility] Name Value Range Interpretation Description Data Sup porting Code Source(s) Document(s ) SARS [facility] coronavirus 2 RNA This lab was ordered by [facility] and reported by [facility]. ID Date Data Source [id number] 02/09/2020 10:25:00 AM EDT [facility] Name Value Range Interpretation Description Data Sup porting Code Source(s) Document(s ) SARS [facility] coronavirus 2 RNA This lab was ordered by [facility] and reported by [facility]. ID Date Data Source [id number] 01/25/2020 09:20:00 AM EDT [facility] Name Value Range Interpretation Description Data Sup porting Code Source(s) Document(s ) 2019 Novel [facility] Coronavirus RNA Interpretation Unspecified Specimen Qualitative CATA Probe Detection This lab was ordered by [facility] and reported by [facility]. ID Date Data Source [id number] 12/25/2019 05:54:30 PM EDT [facility] Name Value Range Interpretation Description Data Sup porting Code Source(s) Document(s ) [place] 0.38 0.6-1.2 Below low normal [facility] [Moles/volu MMOL/L [facility]] in Hospital Serum or Plasma ID Date Data Source [id number] 12/23/2019 01:50:56 PM EDT [facility] Discharge SummaryPatient: Maxwell mackey Sex: male DOA: 12/05/2019Date of : 1970 A ge: 49 y.o. LOS: LOS: 3 daysAdmit Date: 12/05/2019Discharge Date: 12/08/2019 Admission Diagnoses: Encephalopathy acute [G93.40];Ftu-xqmo-lltglxg adversereactio n to medication [T88.7XXA];Xjw-cryo-jarfcfn adverse reaction tomedication [T88.7XXA] Discharge Diagnoses: #1 [...] ICD-10-CM: T50.905AICD -9-CM: E947.9 12/05/2019 - Present Ahq-tiaf-agsuawp adverse reaction to med ication ICD-10-CM: T88.6FSJNIR-7-HJ: 995.20 12/05/2019 - Present Bipolar disorder wit [...] E66.01ICD-9-CM: 278.01 07/19/2018 - Present Spells ICD-10-CM: [id number]-3-OP: IMO00 01 04/08/2016 - Present Seizure disorder [...] Supporting Document(s ) ID Date Data Source [id number] 12/09/2019 02:14:04 PM EDT [facility] referral made. Walker order faxed t o [facility], [facility] and [employer] do NOT acc ept pts insurance.Faxed to Moriah at [facility] at FAX [phone]. She reports they ne ed to get authfor walker. Have instucted pt to buy own walker IF not authorized.He i s agreeable to buying walker if needs to.Care Management InterventionsPCP Verified by CM: YesTransition of Care Consult (CM Consult): Home HealthBon [email or web address] Home Car e: YesCurrent Support Network: Own Home, Lives with SpouseThe Patient and/or Prachi ent Commercial Housekeeper was Provided with a Choice of Providerand Agrees with the Discharge Plan?: YesFreedom of Choice List was Provided with Basic Dialogue that Suppor ts thePatient's Individualized Plan of Care/Goals, Treatment Preferences and Sh aresthe Quality Data Associated with the Providers?: YesVeteran Resource Informat ion Provided?: RefusedDischarge LocationDischarge Placement: Home with [facility]erral [facility] (PRN)(ACCEPTED BY [facility])Pt is discharged , picking him up. reports she has phone number tomake pt a follow up psych appt. [facility] to visit. will buy walker if not [...] Supporting Document(s ) ID Date Data Source [id number] 12/08/2019 03:06:17 PM EDT [facility] [...] Supporting Document(s ) ID Date Data Source [id number] 12/08/2019 03:02:56 PM EDT [facility] Per your note, pt with acute encephalopa thy and toxic Serum [place] level.Please specify the type of encephalopathy in yo ur progress notes: Toxic encephalopathy due to lithium Metabolic encephalopathy due to Other cause (please specify) Clinically unable to determine UnknownPLEASE DOCUM ENT ANY ADDITIONAL DIAGNOSES AND/OR SPECIFICITY IN THE PROGRESSNOTES AND/OR DISCHARGE SUMMARY. Name Value Range Interpretation Code Description Data Melani rce(s) Supporting Document(s ) ID Date Data Source [id number] 12/08/2019 02:40:45 PM EDT [facility] [...] destr uctive or suicidal thoughts12/08/2019 1440 by Mosher, KatyOutcome: Resolved/Met12/08/2019 1439 by Ru Mosher: Progressing Towards GoalGoal: *LTG: Identifies mellissa álvarez community resources12/08/2019 1440 by Basilio Moshercome: Resolved/Met12/08/2019 1439 [...] Fall R isk and appropriate interventions in [facility].12/08/2019 1440 by Divya Mosherome: Resolved/MetNote: Fall Risk [...] to Patient Education ActivityGoal: Patient/Family Education12/08/2019 1440 Ru Castaneda: Resolved/Met12/08/20191438 by Ru Mosher: Progressing T darrel GoalProblem: Pressure Injury - Risk ofGoal: *Prevention of pressure injuryDe scription: Document Harsh Scale and appropriate interventions in [facility] t.12/08/2019 1440 by Ru Mosher: [...] Supporting Document(s ) ID Date Data Source [id number] 12/08/2019 02:40:17 PM EDT [facility] [...] Supporting Document(s ) ID Date Data Source [id number] 12/08/2019 01:18:54 PM EDT [facility] General Daily Progress NoteAdmit Date: Hospital day: .tdSubjective:Psycgm Neuro,and PT assessments reviewed. Patie nt qualifies for discharge. Wifecalled, will bring in clothes. New medical regimen di scussed with the . Willneed [place] level later this week.Current Facility-Adminis tered MedicationsMedication [...] past 8 hrs: BP Temp Pulse Resp OyU162/ 0816 - - - - 96 %12/08/19 [...] initial encounter (12/05/2019)Active Problems: Encephalopathy acute (12/05/2019) Erh-bhmi-osduoll adve rse reaction to medication (12/05/2019)Plan: day of discharge. Name Value Range Interpretation Code Description Data Melani rce(s) Supporting Document(s ) ID Date Data Source [id number] 12/08/2019 12:09:30 PM EDT [facility] Problem: Mobility Impaired (Adult and Pe [...] y.o. male)Date: 12/08/2019Primary Diagnosis: E ncephalopathy acute [G93.40]Cyk-cwhi-ecieevc adverse reaction to medication [T88.7XXA ]Tyt-eyyt-jruwffl adverse reaction to medication [T88.7XXA]Precautions: Fall ASSESSMENT [...] morbidi ty or mortality cardiac cath at [facility] approx 6-8 months ago Other unknown [...] NoneCritical Beh avior:Neurologic State: AlertOrientation Level: Oriented R5Ynzsqetne: Appropriate for age attention/concentration;Follows commandsSafety/Judgement: Decreased awar [...] (0 - 10)Pain Intensity 1: 0Activity Tole neda:Sis refer to the flowsheet for vital signs taken during this treatment. After treatment:[x] Patient left in no apparent distress sitting up in chair [] Patient left in no apparent distress in bed[x] Call moffett eve t within reach[x] Nursing notified[] Caregiver present[] [...] Supporting Document(s ) ID Date Data Source [id number] 12/08/2019 11:48:26 AM EDT [facility] Name Value Range Interpretation Description Data Sup porting Code Source(s) Document(s ) Glucose 132 MG/DL 65-110 Above high normal [facility] [Mass/volume] [facility] in Blood by Hospital Automated test strip ID Date Data Source [id number] 12/08/2019 10:35:45 AM EDT [facility] S/O Patient has shown improvement. He re ports that medications are helping him.He denies any side effectsHe denies any cecilia cidal thoughtsHe reports that he [facility] a [facility] 300 mg bid [place] level in two days Will increase Zyprexa 5 mg Will follow up as requested Name Value Range Interpretation Code Description Data Melani rce(s) Supporting Document(s ) ID Date Data Source [id number] 12/08/2019 07:28:52 AM EDT [facility] Bedside and Verbal shift change report cristi bolanos to Xavi, SUSI (oncoming nurse) Annalise DE LEON, SUSI (offgoing nurse). Repor t included the followinginformation SBAR, Kardex, MAR and Recent Results. Name Value Range Interpretation Code Description Data Melani rce(s) Supporting Document(s ) ID Date Data Source [id number] 12/07/2019 08:26:02 PM EDT [facility] [...] Supporting Document(s ) ID Date Data Source [id number] 12/07/2019 07:05:28 PM EDT [facility] Verbal shift change report given to Chandrakant Cox RN (oncoming nurse) by Steven Villalobos RN (offgoing nurse). Report inc luded the following information SBAR, Kardex,Intake/Output, MAR, Recent Result s and Cardiac Rhythm on telemetry. Name Value Range Interpretation Code Description Data Melani rce(s) Supporting Document(s ) ID Date Data Source [id number] 12/07/2019 01:30:56 PM EDT [facility] Trent Jacob MD[address], [address] [place] [address] [id number] Progress NotePatient: Maxwell Bray Sex: male DOA: [...] (LOVENOX) injection 40 mg 40 mg SubCUTAneous O17LTsqoycbyw:Visit VitalsBP 153/85 (BP 1 Location: Left arm, BP Prachi ent Position: At rest)Pulse 96Temp 98.7 F (37.1 C)Resp 20Ht 5' 5.75" (1.67 m)Wt 3 01 lb 1.6 oz (136.6 kg)SpO2 96%BMI 48.97 kg/m Body mass index is 48.97 kg/m .Patient V itals for the past 24 hrs: Temp Pulse Resp BP AzO143/ 1249 - 96 - 153/85 -12/06/ 0 0956 98.7 F (37.1 C) 95 [...] shoulder M79.2 Seizure disorder (HCC) G40.909 Spells [id number] Severe obesity (HCC) E66.01 Depression F32.9 Anxiety F41.9 Bipolar disorder (HCC) F31.9 Depressive disorder F32.9 Status post g astric bypass for obesity Z98.84 Morbid obesity (HCC) E66.01 Mixed anxiety and depressive disorder F41.8 Vitamin D deficiency E55.9 Bipolar disorder with severe depression (HCC) F31.4 Encephalopathy acute G93.40 Adverse drug reaction, ini tial encounter T50.905A Afq-aucr-kogutrz adverse reaction to medication T88.7XXA 49 year [...] Supporting Document(s ) ID Date Data Source [id number] 12/07/2019 01:02:36 PM EDT [facility] Pt seen and discussed with Dr Canas .Pt is tearful flat and denies any suicidal thoughts , has been depressed withlithiu m on hold , No Vraylar and he is unable to get his ECT at [facility] And no w will be with [facility] with Dr Womack his lithium level is un therape utic range I will start on lithium , add 2.5mg of zyprexa and lower his klonopin And increase his elavil to 200 mg HSWill get pt followed up with Psychiatry Name Value Range Interpretation Code Description Data Melani rce(s) Supporting Document(s ) ID Date Data Source [id number] 12/07/2019 12:52:32 PM EDT [facility] Problem: Fluid Volume - Risk of, Imbalan cedGoal: *Balanced intake and outputOutcome: Progressing Towards GoalProblem: Patient Education: Go to Patient Education ActivityGoal: Patient/Family EducationOu tcome: Progressing Towards Goal Name Value Range Interpretation Code Description Data Melani rce(s) Supporting Document(s ) ID Date Data Source [id number] 12/07/2019 12:45:20 PM EDT [facility] [...] Supporting Document(s ) ID Date Data Source [id number] 12/07/2019 12:24:47 PM EDT [facility] General [...] injection 40 mg 40 mg SubCUTA neous P11KAfuefjass:Patient Vitals for the past 8 hrs: BP Temp Pulse Resp HyT830/14 /20 0956 147/86 98.7 F (37.1 C) 95 [...] initial encounter (12/05/2019)Active Problems: Encephalopathy acute (12/05/2019) Sps-gkad-wklqmre adve rse reaction to medication (12/05/2019)Plan:To increase activity, diet,klonopin. Start Losartan Name Value Range Interpretation Code Description Data Melani rce(s) Supporting Document(s ) ID Date Data Source [id number] 12/07/2019 10:13:28 AM EDT [facility] LTM EEG soft sugar supervisor DC'd per Dr. Jacob. Name Value Range Interpretation Code Description Data Melani rce(s) Supporting Document(s ) ID Date Data Source [id number] 12/07/2019 10:08:27 AM EDT [place] [address] [address] [place] BUTCH 99944IMHUOWM: MAXWELL BRAYMRN: [id number]: [id number]#: [id number] DATE: 12/05/2019LONG TERM MONITORING VIDEO STUDENT DEVELOPMENT SPECIALIST: Riky Rodriguez HISTORY: The patient is a [...] montages. Digital analysis was performed employing an [place] neuralnetwork program with parameterization and statistical analysi [...] seen, that attenuates with eye opening.There was wlhy-kn-bdboqvzg gener alized background slowing.There was no clear focal slowing.ACTIVATION TECHNIQUES: Ph otic stimulation and hyperventilation were notperformed.SLEEP: During drowsiness, there is mild attenuation and slowing of thebackground rhythm. There was normal sleep seen including symmetric vertexwaves, sleep spindles, and K-complexes.OTHER AC TIVITY: There were no clear epileptiform discharges and no seizures orclinical ev ents recorded.DIGITAL ANALYSIS: Variable spectral pattern without significant lef w-bi-ycwzlruarsomkotm. Spikes were artifact in nature.DECEMBER 06 DAILY [...] the awake and asleep states due to etic-jg-xqhbtith diffuse cerebraldysfunc tion that improves to mild over the course of the recording. TRENT JACOB, ELIZABETHD: #12/06/2019 10:21:35/SS /[id number]/[id number] #: [id number] / [id number] Name Value Range Interpretation Code Description Data Melani rce(s) Supporting Document(s ) ID Date Data Source [id number] 12/07/2019 07:45:20 AM EDT [facility] Bedside and Verbal shift change report cristi Dove RN (3Loria) (oncomingnurse) by Vy Green RN (offgoing nurse). Report included the following information SBAR, Kardex, MARand Recent Results. Name Value Range Interpretation Code Description Data [facility] rce(s) Supporting Document(s ) ID Date Data Source [id number] 12/07/2019 07:22:41 AM EDT [facility] All leads and head wrapping intact. Day 2 LTM complete. Awaiting instructions tocontinue for day 3 or DC. Name Value Range Interpretation Code Description Data [facility] rce(s) Supporting Document(s ) ID Date Data Source [id number] 12/07/2019 05:19:11 AM EDT [facility] Name Value Range Interpretation Description Data Sup porting Code Source(s) Document(s ) Sodium 138 136-145 [facility] [Moles/volume] mmol/L [facility] in Serum or Hospital Plasma Potassium 3.5 3.5-5.1 [facility] [Moles/volume] mmol/L [facility] in Serum or Hospital Plasma Chloride 106 98-107 [facility] [Moles/volume] mmol/L [facility] in Serum or Hospital Plasma Carbon 27 21-32 [facility] dioxide, total mmol/L [facility] [Moles/volume] Hospital in Serum or Plasma Anion gap in 10 10-20 [facility] - [facility] Serum or mmol/L [facility] Glucose 140 74-106 Above high normal [facility] [Mass/volume] mg/dL [facility] Serum or [facility] Plasma Urea nitrogen 19 mg/dL 7-18 Above high normal [facility] - [facility] [Mass/volume] [facility] Serum or [facility] Plasma Creatinine 0.94 0.70-1.3 [facility] [Mass/volume] mg/dL 0 [facility] Serum or [facility] Plasma Glomerular >60 [facility] - Good filtration [facility] rate/1.73 sq M Hospital predicted among blacks [Volume Rate/Area] in Serum or Plasma by Creatinine-bas ed formula (MDRD) Glomerular >60 [facility] rate/1.73 sq M Hospital predicted among non-blacks [Volume Rate/Area] in Serum or Plasma by Creatinine-bas ed formula (MDRD) (NOTE)Estimated GFR is calculated using the Modification of Diet in RenalDisease (MDRD) Study equation, reported for both Americans(GFRAA) and non- Americans (GFRNA), and normalized to 1.7 2r3ulng surface area. The physician must decide which value applies tothe patient . The MDRD study equation should only be used inindividuals age 18 or older. It has no t been validated for thefollowing: women, patients with serious comorbid co nditions,or on certain medications, or persons with extremes of body size,muscl e mass, or nutritional status. Calcium [Mass/volume] in Serum 9.1 mg/dL 8.5-10.1 [facility] or Plasma Hospital ID Date Data Source [id number] 12/06/2019 08:12:24 PM EDT [facility] Bedside and Verbal shift change report g cici to Rach UGALDE (oncoming nurse) Estephania Wakefield RN (offgoing nurse). Report included the followinginformation SBAR, Kardex, MAR, Recent Results, and Med Rec Status. Name Value Range Interpretation Code Description Data Melani rce(s) Supporting Document(s ) ID Date Data Source [id number] 12/06/2019 04:57:12 PM EDT [facility] [...] (LOVENOX) injection 40 mg 40 mg SubCUTAneous G20WOpxbgrcdt:Patient Vi tals for the past 8 hrs: BP Temp Pulse Resp GvV10012/06/19 1547 (!) 164/100 99.6 F (3 7.6 [...] Time: 12/06/19 4:25 AMResult Value Ref Range [place] level 1.09 0.6 - 1.2 MMOL/L Xr [...] initial encounter (12/05/2019)Active Problems: Encephalopathy acute (12/05/2019) Heq-cssr-yogdwmd adve rse reaction to medication (12/05/2019)Plan:To reduce iv fluids, repeat lasix Name Value Range Interpretation Code Description Data Melani rce(s) Supporting Document(s ) ID Date Data Source [id number] 12/06/2019 04:14:48 PM EDT [facility] Psychiatry Consult NoteSubjective:Landen t: Maxwell [...] of morbidity or mortality cardiac cath at [facility] approx 6-8 months ago Other unknown and unspecified cause of morbidity or mortal ity concussions Other unknown and unspecified cause of morbidity or mortal ity "periodic disorientation" Other unknown and unspecified cause of morbidity or mo rtality anxiety Psychiatric disorder anxiety, depressionPsychiatric History: Patient reported he was receiving care in outpatient from [facility] psychiatrist marly t did not discuss details.Substance Use History:Social HistorySubstance and Sexu al ActivityAlcohol Use No Frequency: Never Drinks per session: 1 or 2 Binge freque ncy: NeverSocial HistorySubstance and Sexual ActivityDrug Use NoObjective:Vitals/Phys ical Assessment:Patient Vitals for the past 8 hrs: BP Temp Pulse Resp YqJ24412/06/19 081 3 (!) 153/94 100.4 F (38 [...] encounter (12/05/2019)A ctive Problems: Encephalopathy acute (12/05/2019) Udh-pzzs-wdgcmdm adverse re action to medication (12/05/2019)Plan:No current [...] Supporting Document(s ) ID Date Data Source [id number] 12/06/2019 01:18:16 PM EDT [facility] Trent Jacob MD[address], [address] [place] [address] [phone] Progress NotePatient: Maxwell Bray Sex: male DOA: 12/05/2019Date of : 1970 Age: 49 y.o. LOS: LOS: 1 daySubjective:Awake, alert, tremulous, no current complaintsEEG w/ mild to mod gen slowREVIEW OF SYSTEMS: NO CP, SOB, N,V,D, F,CCurrent Facility-Administered MedicationsMedication Dose Route Frequen cy 0.9% sodium chloride infusion 125 mL/hr IntraVENous CONTINUOUS enoxaparin (LOVE NOX) injection 40 mg 40 mg SubCUTAneous J15WYaskgchge:Visit VitalsBP (!) 153/94 (BP 1 Location: Left arm, BP Patient Position: At rest)Pulse 100Temp 100.4 F (38 C)Resp 18Ht 5' 5.75" (1.67 m)Wt 300 lb (136.1 kg)SpO2 96%BMI 48.79 kg/m Body mass index is 48.79 kg/m .Patient Vitals for the past 24 hrs: Temp Pulse Resp BP LrY71712/06/19 0813 100.4 F (38 C) 100 18 [...] past 24 hours were reviewed both during [employer] daily workflow process and at the time notated as "note time" in [facility]. (It is not time stamped separately [...] 16 11 - 32 UMOL/LLITHIUM Collection Time: 06/13/20 4:25 AMResult Value Ref Range [place] level 1.09 0.6 - 1.2 MMOL/LCT Results (most recent):Results from Hospital [facility] encounter on 12/05/19CT HEAD WO CONT [...] were created on an independent workstation. Utilizingluis aufactureelizabeth walsh the examination was performed to optimize [...] the brain.MRI Results (most recent):Results from Hospital [facility] encounter on 12/05/19MRI BRAIN WO CONT [...] hic pain of shoulder M79.2 Seizure disorder ([facility]) G40.909 Spells [id number] Severe ob esity ([facility]) E66.01 Depression F32.9 Anxiety F41.9 Bipolar disorder ([facility]) F31.9 Dep ressive disorder F32.9 Status post gastric bypass for obesity Z98.84 Morbid obesit y ([facility]) E66.01 Mixed anxiety and depressive disorder F41.8 Vitamin D deficiency E55 .9 Bipolar disorder with severe depression ([facility]) F31.4 Encephalopathy acute G93.40 Adverse drug reaction, initial encounter T50.905A Oru-qrmu-ovokztb adverse react ion to medication T88.7XXA49 year [...] Supporting Document(s ) ID Date Data Source [id number] 12/06/2019 11:43:34 AM EDT [facility] LTM study day 1 complete. All leads and head wrapping intact. Day 2 LTM studycommenced and LIVE via WIFI on [facility]. 06/28 Name Value Range Interpretation Code Description Data Melani rce(s) Supporting Document(s ) ID Date Data Source [id number] 12/06/2019 10:48:32 AM EDT [facility] Care Management InterventionsPCP Verifchris d by CM: YesCurrent Support Network: Own Home, Lives with SpouseThe Patient and/o r Patient Commercial Housekeeper was Provided with a Choice of Providerand Agrees with the Di milton Plan?: YesFreedom of Choice List was Provided with Basic Dialogue that Suppor ts thePatient's Individualized Plan of Care/Goals, Treatment Preferences and Sh aresthe Quality Data Associated with the Providers?: YesVeteran Resource Informat ion Provided?: RefusedDischarge LocationDischarge Placement: HomeCASE YUE LORENZ PSYCHOSOCIAL ASSESSMENTMaxwell Anam [place] Admission Marlon e: 12/05/2019MRN: [id number] of : 1970Current date: 12/06/2019 DISCHARGE PLAN: Patient is a 49 year old male admitted to [facility]. CM attempted toreach hi m via room phone and was unsuccessful. CM spoke with the spouses ,Blanca at [phone]. Prior to hospitalization patient was independent of [...] services. Open for SNF. [facility]. CM CCLINKD. CM willfollow.Patient Information:Patients Preferred [...] NoPCP: Ritika Canas MDAdmitting Provider: Ritika lobo MDSENT[facility] BOTTLER: N/APayor: P ayor: [facility] PLAN / Plan: [facility]AN /Product Type: HMO /Secondary Payor : @SECINSGROUPNAME@Encephalopathy acute [G93.40]Fas-hgyq-aufohja adverse reactio n to medication [T88.7XXA]Yof-ybhm-gvikquz adverse reaction to medication [T88.7XXA ]Patient Active Problem ListDiagnosis Code H/O gastric bypass Z98.84 Insomnia G47. 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 Seizure disorder (HCC) G40.909 Spells I [id number] Severe obesity (HCC) E66.01 Depression F32.9 Anxiety F41.9 Bipolar disorder (HCC) F31.9 Depressive disorder F32.9 Status post gastric bypass for ob esity Z98.84 Morbid obesity (HCC) E66.01 Mixed anxiety and depressive disorder F4 1.8 Vitamin D deficiency E55.9 Bipolar disorder with severe depression (HCC) F3 1.4 Encephalopathy acute G93.40 Adverse drug reaction, initial encounter T50.905 A Lwt-bdga-zsxrhfs adverse reaction to medication T88.7XXASocial HistorySubstan ce and Sexual ActivityAlcohol Use No Frequency: Never Drinks per session: 1 or 2 Binge frequency: NeverNumber of stairs into patient home:DME:Cohabitants:Abuse Screen:Physical Abuse/Neglect: DeniesSexual Abuse: DeniesVerbal Abuse: DeniesOther A buse/Issues: DeniesINSURANCE INFORMATION: (Verification)Primary Notes:Secondary No eknton:Workmen's Comp Notes:No-Fault Notes:SSD Notes:Un-Insured Notes:Long-Term Care In [...] Name Value Range Interpretation Code Description Data [facility] rce(s) Supporting Document(s ) ID Date Data Source [id number] 12/06/2019 07:40:06 AM EDT [facility] [...] Name Value Range Interpretation Code Description Data [facility] Document(s ) ID Date Data Source [id number] 12/06/2019 05:07:27 AM EDT [facility] Name Value Range Interpretation Description Data Sup porting Code Source(s) Document(s ) [place] 1.09 0.6-1.2 [facility] [Moles/volu MMOL/L [facility] in Hospital Serum or Plasma ID Date Data Source [id number] 12/05/2019 07:59:09 PM EDT [facility] Name Value Range Interpretation Description Data Sup porting Code Source(s) Document(s ) Ammonia 16 UMOL/L 11-32 [facility] [Moles/volum [facility]] in Plasma Hospital ID Date Data Source [id number] 12/05/2019 07:56:38 PM EDT [facility] Name Value Range Interpretation Description Data Sup porting Code Source(s) Document(s ) Lactate 0.9 0.4-2.0 [facility] [Moles/volu MMOL/L [facility]] in Hospital Serum or Plasma ID Date Data Source [id number] 12/05/2019 06:42:57 PM EDT [facility] 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 Day 1 LTM comm enced and LIVE via WIFI on 06/28 Name Value Range Interpretation Code Description Data Melani rce(s) Supporting Document(s ) ID Date Data Source [id number] 12/05/2019 06:07:34 PM EDT [facility] [id number] [employer] 4T [employer] THOP[employer] [address] [facility] [address] [phone] Maxwell Bray (Male) [id number] ES I 3 ED Dispo:ADMIT Chief Complaint: Fall, Fatigue Diagnosis: Altered mental status, unspecified altered mental status type [] Adverse drug reaction, initial encounter [] Encephalopathy acute [] Imh-djjw-xqoxviv adverse effect of medication, subsequent encounter [] Bipolar disorder with severe depression (HCC) [] H/O gastric bypass [] Curre nt Providers: Attending: Patsy Manzo; Kristy Otero; Cristi Canas Consulting Provider: Jose Centeno; Cristi Canas; Javier Khan; Cristi Frazier Primary Nurse: MARY Gamble: [phone] [employer] [phone] - [facility] Med[employer] MrnMRN: [id number] [employer] [phone] - [facility] [employer] Age SexDOB 1970 AGE 49 SEX Male Primary Care Provider: Ritika Canas MD Phone: Allergies: (No Known Allergies)Date Reviewed: 12/05/2019Reviewed by: Ritika Canas MD - Review CompleteED Provider Notes: All notesHNO ID: [id number]: Julio Manzo MDService: EMERGENCYAuthor Type: Physici anFiled: [...] of morbidity or mortality cardiac cath at [facility] approx 6-8 months ag o Other [...] week Gets together: Once a week Attends mosque service: More than 4 times per year [...] Calculation (Bez et) 515 ms Calculated P [place] 40 degrees Calculated R [place] 41 degrees Calculated T [place] 147 degrees Diagnosis Sinus tachycardiaProbable left atrial [...] Time: 12/05/19 12:38 PMResult Value Ref Range [place] level 1 .53 (HH) 0.6 - 1.2 MMOL/LLACTIC ACID Collection Time: 12/05/19 12:40 PMResult Value Ref Range Lactic acid 1.1 0.4 - 2.0 MMOL/LEKG:Sinus tachycardia at 100 BPM, normal axis, nothing acute.Interpreted by Julio Manzo MD11:20 AM 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Interpreted [...] brain. Narrative: CT HEAD W/O CONTRASTPRIOR: Joe naranjo: Most recent October 29, 2019: "No acute [...] mental status, unspecified altered mental status type R41.10916.97Patient c ondition at time of disposition: StableI [...] thediagnostic studies, unless otherwise noted.+ED Orde rs [id number] 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 [#[id number]] Priority: STAT Class: Hospital Performe d Standing Order Information Remaining Occurrences:0 Interval:Continuous Last release d:12/05/2019 Released orders: SunDec 05, 2019 11:20 AM by: JULIO MANZO Type: -> Bedside N [id number] PULSE OXIMETRY CONTINUOUS [#[id number]] Priority: STAT Class: Hospital Performe d Standing Order Information Remaining Occurrences:0 Interval:CONTINUOUS Last release d:12/05/2019 Released orders: SunDec 05, 2019 11:20 AM by: JULIO MANZO [id number] PULSE OXIMETRY SPOT CHECK [#[id number]] Priority: STAT Class: Hospital Performed Standing Order Inf ormation Remaining Occurrences:0/ Interval:ONE TIME Last released:12/05/2019 Release d orders: SunDec 05, 2019 11:20 AM by: JULIO MANZO [id number] OBTAIN OLD EKG [ #[id number]] Priority: Routine Class: Hospital Performed Standing Order Information Remainin g Occurrences:0/1 Interval:ONE TIME Last released:12/05/2019 Released orders : SunDec 05, 2019 11:20 AM by: JULIO MANZO [id number] 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 [# [id number]] Priority: STAT Class: Hospital Performed Type: -> Bedside Released on: 12/05/2019 11:20 AM [id number] PULSE OXIMETRY CONTINUOUS [#[id number]] Priority: STAT Class: Hospital Performe d Released on: 12/05/2019 11:20 AM [id number] PULSE OXIMETRY SPOT CHECK [#[id number]] Priori ty: STAT Class: Hospital Performed Released on: 12/05/2019 11:20 AM [id number] OBTAIN OLD EKG [#[id number]] Priority: STAT Class: Hospital Performed Released on: 12/05/2019 11:20 AM [id number] VITAL SIGNS PER UNIT ROUTINE [#[id number]] Priority: STAT Class: Hospital Performed Stand ing Order Information Remaining Occurrences:0/1 Interval:CONTINUOUS Last released :12/05/2019 Released orders: SunDec 05, 2019 2:41 PM by: RITIKA CANAS Comment:More frequent ly if Indicated. [id number] BEDREST, COMPLETE [#[id number]] Priority: STAT Class: H ospital Performed Standing Order Information Remaining Occurrences:0/1 Interval:CONTIN UOUS Last released:12/05/2019 Released orders: SunDec 05, 2019 2:41 PM by: RITIKA CNAAS [id number] NOTIFY PROVIDER: VITAL SIGNS CHANGES [#[id number]] Priority: STAT Class: Hospital Performe d Standing [...] Less than 120 ml in 4 hours [id number] APPLY/MAINTAIN SEQUENTIAL COMPRESSIO* [# [id number]] Priority: STAT Class: Hospital Performed Standing Order Information Remaining Occurre nces:0/1 Interval:CONTINUOUS Last released:12/05/2019 Released orders: SunDec 05, 2019 2:41 PM by: RITIKA CANAS [id number] VITAL SIGNS PER UNIT ROUTINE [#[id number]] Priorit y: STAT Class: Hospital Performed Comment:More frequently if Indicated. Released on: 12/05/2019 2 :41 PM [id number] BEDREST, COMPLETE [#[id number]] Priority: STAT Class: Hospital Performe d Released on: 12/05/2019 2:41 PM [id number] NOTIFY PROVIDER: VITAL SIGNS CHANGES [#[id number]] Priority: STAT Class: Hospital Performed Temp -> [...] carmen rs Released on: 12/05/2019 2:41 PM [id number] APPLY/MAINTAIN SEQUENTIAL COMPRESSIO* [#[id number]] P riority: STAT Class: Hospital Performed Released on: 12/05/2019 2:41 PM [id number] RT--OXYGEN CANNULA [#[id number]] Priority: STAT Class: Hospital Performed Standing Order Information Remaining Occurrences:0/1 Interval:CONTINUOUS Last released:12/05/2019 Released o rders: SunDec 05, 2019 11:20 AM by: JULIO MANZO LPM -> 2 Indications for O2? -> CHEST PAIN [id number] RT--OXYGEN CANNULA [#[id number]] Priority: STAT Class: Hospital Performe d LPM -> 2 Indications for O2? -> CHEST PAIN Released on: 12/05/2019 11:20 AM [id number] DIET NPO [#[id number]] Canceled Priority: STAT Class: Hospital Performed Cancele d by RITIKA CANAS on SunDec 05, 2019 2:41 PM Reason: None Comment: Standing Order Information Remaining Occurrences:0/1 Interval:DIET EFFECTIVE NOW Last released:12/05/2019 Release d orders: SunDec 05, 2019 11:20 AM by: JULIO MANZO NPO options: -> With Meds [id number] DIET NPO [#[id number]] Canceled Priority: STAT Class: Hospital Performed Cancele d by RITIKA CANAS on SunDec 05, 2019 2:41 PM Reason: None Comment: NPO options: -> With Meds Released on: 12/05/2019 11:20 AM [id number] DIET NPO [#[id number]] Priority: S TAT Class: Hospital Performed Standing Order Information Remaining Occurrences:0/1 Inter haile:DIET EFFECTIVE NOW Last released:12/05/2019 Released orders: SunDec 05, 2019 2:41 PM by: RITIKA CANAS [id number] DIET NPO [#[id number]] Priority: STAT Class: H ospital Performed Released on: 12/05/2019 2:41 PM [id number] SALINE LOCK IV [#[id number]] Priority: STAT Class: Hospital Performed Standing Order Information Remaining Occurrences:0 /1 Interval:ONE TIME Last released:12/05/2019 Released orders: SunDec 05, 2019 11:20 AM by: JULIO MANZO IVT11 SALINE LOCK IV [#[id number]] Priority: STAT Cl ass: Hospital Performed Released on: 12/05/2019 11:20 AM [id number] METABOLIC PANEL, COMPREHENSIVE [# [id number]] Priority: STAT Class: ER Collect Standing Order Information Remaining Occurrences:0 /1 Interval:ONE TIME Last released:12/05/2019 Released orders: SunDec 05, 2019 11:20 AM by: JULIO MANZO [id number] CBC WITH AUTOMATED DIFF [#[id number]] Priority: STAT Cl ass: ER Collect Standing Order Information Remaining Occurrences:0/1 Interval:ONE TI ME Last released:12/05/2019 Released orders: SunDec 05, 2019 11:20 AM by: JULIO MANZO [id number] TROPONIN I [#[id number]] Priority: STAT Class: ER Collect Sta nding Order Information Remaining Occurrences:0/1 Interval:ONE TIME Last released:0 12/05/2019 Released orders: SunDec 05, 2019 11:20 AM by: JULIO MANZO [id number] MAGNESIUM [#[id number]] Priority: STAT Class: ER Collect Standing Order Information Remaining Occurrences:0/1 Interval:ONE TIME Last released:12/05/2019 Released orders : SunDec 05, 2019 11:20 AM by: JULIO MANZO [id number] LACTIC ACID [#[id number]] Priority: STAT Class: ER Collect Standing Order Information Remaining Occurrences:0/2 Interval:NOW THEN EVERY 4 HOURS Last released:12/05/2019 Released orders: SunDec 05, 2019 12:06 PM by: JULIO MANZO SunDec 05, 2019 11:20 AM by: JULIO MANZO [id number] PROTHROMBIN TIME + INR [#[id number]] Priority: STAT Class: ER Collect Standing Order Information Remain ing Occurrences:0/1 Interval:ONE TIME Last released:12/05/2019 Released orders : SunDec 05, 2019 11:20 AM by: JULIO MANZO [id number] URINALYSIS W/ RFLX MICROSCOPIC [# [id number]] Priority: STAT Class: ER Collect Standing Order Information Remaining Occurrences:0 /1 Interval:ONE TIME Last released:12/05/2019 Released orders: SunDec 05, 2019 11:20 AM by: JULIO MANZO [id number] METABOLIC PANEL, COMPREHENSIVE [#[id number]] Priority: STAT Cl ass: ER Collect Specimen Source: Plasma Specimen Collected: 12/05/2019 12:38 PM Resulting Agency: [facility] Test ID: MPL Released on: 12/05/2019 11:20 AM [id number] CBC WITH A UTOMATED DIFF [#[id number]] Priority: STAT Class: ER Collect Specimen Source: Whole Blood S pecimen Collected: 12/05/2019 12:38 PM Resulting Agency: [facility] Test ID: CBCXA Released on: 12/05/2019 11:20 AM [id number] TROPONIN I [#[id number]] Prior ity: STAT Class: ER Collect Specimen Source: Plasma Specimen Collected: 12/05/2019 12:38 PM Resultin g Agency: [facility] Test ID: TROIP Released on: 12/05/2019 11:20 AM [id number] MAGNESIUM [#[id number]] Priority: STAT Class: ER Collect Specimen Source : Plasma Specimen Collected: 12/05/2019 12:38 PM Resulting Agency: [facility] Test ID: MGPL Released on: 12/05/2019 11:20 AM [id number] LACTIC ACID [#[id number]] P riority: STAT Class: ER Collect Specimen Source: Plasma Specimen Collected: 12/05/2019 12:40 PM Resultin g Agency: [facility] Test ID: LAC Released on: 12/05/2019 11:20 AM [id number] PROTHR OMBIN TIME + INR [#[id number]] Priority: STAT Class: ER Collect Specimen Source: Plasma Spe cimen Collected: 12/05/2019 12:38 PM Resulting Agency: [facility] Test ID: APTHR R eleased on: 12/05/2019 11:20 AM [id number] URINALYSIS W/ RFLX MICROSCOPIC [#[id number]] Prior ity: STAT Class: ER Collect Specimen Source: Urine Specimen Collected: 12/05/2019 2:45 PM Resultin g Agency: [facility] Test ID: UA Released on: 12/05/2019 11:20 AM [id number] LITHIU M [#[id number]] Priority: STAT Class: ER Collect Standing Order Information Remaining Occurrences:0/1 Interval:ONE TIME Last released:12/05/2019 Released orders : SunDec 05, 2019 11:40 AM by: MECHELLE GAMBLE [id number] LITHIUM [# [id number]] Priority: STAT Class: ER Collect Specimen Source: Serum Specimen Collected: 12/05/2019 12 :38 PM Resulting Agency: [facility] Test ID: LI Released on: 12/05/2019 11:40 AM [id number] LITHIUM [#[id number]] Canceled Priority: STAT Class: ER Collect Canceled by TENA, [facility] on SunDec 05, 2019 11:42 AM Reason: Other Comment: Duplicate Standing Order Information Remaining Occurrences:0/1 Interval:ONE TIME Last released:0 12/05/2019 Released orders: SunDec 05, 2019 11:41 AM by: JULIO MANZO [id number] LITHIUM [#[id number]] Canceled Priority: STAT Class: ER Collect Specimen Collected: 12/05/2019 11:45 AM Resulting Agency: [facility] Test ID: LI Canceled by TENA, [facility] on SunDec 05, 2019 11:42 AM Reason: Other Comment: Duplicate Rele ased on: 12/05/2019 11:41 AM [id number] LACTIC ACID [#[id number]] Priority: STAT Cl ass: ER Collect Resulting Agency: [facility] Test ID: LAC Released on: 12/05/2019 12:06 PM [id number] AMMONIA [#[id number]] Priority: Routine Class: ER Collect Specimen Source: Blood Standing Order Information Remaining Occurrences:0/1 Interval:ONE TI ME Last released:12/05/2019 Released orders: SunDec 05, 2019 3:19 PM by: Javier KHAN [id number] AMMONIA [#[id number]] Priority: STAT Class: ER Collect Spe cimen Source: Blood Resulting Agency: [facility] Test ID: NH3 Released on: 12/05/2019 3:19 PM [id number] BILIRUBIN, CONFIRM [#[id number]] Priority: Routine Class : ER Collect Resulting Agency: [facility] Test ID: ICTO Standing Order Informat ion Remaining Occurrences:0/1 Released orders: SunDec 05, 2019 2:45 PM by: Automatic B atch Process [id number] BILIRUBIN, CONFIRM [#[id number]] Priority: Routine Class : ER Collect Specimen Source: Miscellaneous sample Specimen Collected: 12/05/2019 2:45 PM Resultin g Agency: [facility] Test ID: ICTO Released on: 12/05/2019 2:45 PM [id number] EKG, 12 LEAD, INITIAL [#[id number]] Priority: STAT Class: Hospital Performed Stand ing Order Information Remaining Occurrences:0/1 Interval:ONE TIME Last released:0 12/05/2019 Released orders: SunDec 05, 2019 11:20 AM by: JULIO MANZO Reason for Exam: -> Chest Pain [id number] EKG, 12 LEAD, INITIAL [#[id number]] Priority: STAT Class: H ospital Performed Resulting Agency: [facility] Test ID: [id number] Reason for Exam: -> Chest Pain Releas ed on: 12/05/2019 11:20 AM [id number] XR CHEST PORT [#[id number]] Priority: STAT Clas s: Hospital Performed Standing Order Information Remaining Occurrences:0/1 Interval:ONE TI ME Last released:12/05/2019 Released orders: SunDec 05, 2019 11:20 AM by: JULIO MANZO Reason for Exam -> Chest Pain [id number] CT HEAD WO CONT [#[id number]] Priority: S TAT Class: Hospital Performed Standing Order Information Remaining Occurrences:0/1 Inter haile:ONE TIME Last released:12/05/2019 Released orders: SunDec 05, 2019 11:20 AM by: JULIO MANZO Reason for Exam -> ams [id number] XR PELV AP ONLY [#[id number]] Priority: S TAT Class: Hospital Performed Standing Order Information Remaining Occurrences:0/1 Inter haile:ONE TIME Last released:12/05/2019 Released orders: SunDec 05, 2019 11:20 AM by: JULIO MANZO Reason for Exam -> fall [id number] XR CHEST PORT [#[id number]] Priority: STAT Class: Hospital Performed Specimen Collected: 12/05/2019 12:21 PM Resulting Agency: [facility] Test ID: [id number] Reason for Exam -> Chest Pain Released on: 12/05/2019 11:[id number] HEAD WO CONT [#[id number]] Priority: STAT Class: Hospital Performed Specimen Collected : 12/05/2019 12:43 PM Resulting Agency: [facility] Test ID: [id number] Reason for Exam -> ams R eleased on: 12/05/2019 11:20 AM [id number] XR PELV AP ONLY [#[id number]] Priority: STAT Class: Hospital Performed Specimen Collected: 12/05/2019 12:23 PM Resulting Agency: [facility] Test ID : [id number] Reason for Exam -> fall Released on: 12/05/2019 11:20 AM [id number] MRI BRAIN WO CONT [#[id number]] Priority: STAT Class: Hospital Performed Standing Order Information Remaining Occurrences:0/1 Interval:ONE TIME Last released:12/05/2019 Released orders : SunDec 05, 2019 3:19 PM by: JOSE KHAN Reason for Exam -> ams [id number] MRI BRA IN WO CONT [#[id number]] Priority: STAT Class: Hospital Performed Specimen Collected : 12/05/2019 5:03 PM Resulting Agency: [facility] Test ID: [id number] Reason for Exam -> ams R eleased on: 12/05/2019 3:19 PM [id number] CULTURE, BLOOD [#[id number]] Priority: Radhai ne Class: ER Collect Specimen Source: Blood Standing Order Information Remaining Occurrences:0 /1 Interval:ONE TIME Last released:12/05/2019 Released orders: SunDec 05, 2019 11:20 AM by: JULIO MANZO [id number] CULTURE, BLOOD [#[id number]] Priority: STAT Cl ass: ER Collect Specimen Source: Blood Standing Order Information Remaining Occurrences:0/1 I nterval:ONE TIME Last released:12/05/2019 Released orders: SunDec 05, 2019 11:20 AM by: JULIO MANZO [id number] CULTURE, BLOOD [#[id number]] Priority: STAT Class: E R Collect Specimen Source: Blood Specimen Collected: 12/05/2019 12:38 PM Resulting Agency: [facility] Test ID: HBCS Released on: 12/05/2019 11:20 AM [id number] CULTURE, BLOOD [#[id number]] Priority: STAT Class: ER Collect Specimen Source: Blood Specimen Collected: 12/04 12:30 PM Resulting Agency: [facility] Test ID: HBCS Released on: 12/05/2019 11:20 AM CEFTRIAXONE 1 GRAM IVPB MBP [#[id number]] Priority: STAT Class: Normal An tibiotic Indications -> Sepsis of Unknown Etiology SODIUM CHLORIDE 0.9 % IV [#[id number]] Priority: STAT Class: Normal SODIUM CHLORIDE 0.9 % IV [#[id number]] Priority : STAT Class: Normal ENOXAPARIN 40 MG/0.4 ML SUB-Q SYRINGE [#[id number]] Priority: STAT Class: N ormal ENOXAPARIN 40 MG/0.4 ML SUB-Q SYRINGE [#[id number]] Priority: STAT Class: Normal FUROSEMIDE 10 MG/ML IJ SOLN [#[id number]] Priority: STAT Class: Normal CON53 IP CONSULT TO PS YCHIATRY [#[id number]] Priority: STAT Class: Hospital Performed Standing Order Information Remaining Occurrences:0/1 Interval:ONE TIME Last released:12/05/2019 Released orders : SunDec 05, 2019 11:42 AM by: JULIO MANZO Reason for Consult: -> si Did you call or spea k to the consulting provider? -> No Consult To -> si CON53 IP CONSULT TO PSYCHIATRY [#[id number]] Priority: STAT Class: Hospital Performed Reason for Consult: -> si Did you call or spea k to the consulting provider? -> No Consult To -> si Released on: 12/05/2019 11:42 AM CON62 IP CON SULT TO INTERNAL MEDICINE [#[id number]] Priority: STAT Class: Hospital Performed Standing Order Inf ormation Remaining Occurrences:0/1 Interval:ONE TIME Last released:12/05/2019 Release d orders: SunDec 05, 2019 2:16 PM by: CARLA OTERO Reason for Consult: -> Altered mental st atus, Dr. Canas to admit Did you call or speak to the consulting provider? -> Yes CON62 IP CONSULT TO INTERNAL MEDICINE [#[id number]] Priority: STAT Class: Hospital Performed Reason for Consu lt: -> Altered mental status, Dr. Canas to admit Did you call or speak to the consulting provider? -> Yes Released on: 12/05/2019 2:16 PM CON53 IP CONSULT TO PSYCHIATRY [#[id number]] Priority: STAT Class: Hospital Performed Standing Order Information Remaining Occurrences:0 /1 Interval:ONE TIME Last released:12/05/2019 Released orders: SunDec 05, 2019 2:41 PM by: RITIKA CANAS Reason for Consult: -> adverse med reaction Did you call or speak to t he consulting provider? -> No Consult To -> Dr Aguirre Schedule When? -> TODAY CON9 IP CONSULT TO N EUROLOGY [#[id number]] Priority: STAT Class: Hospital Performed Standing Order Information Remaining Occurrences:0/1 Interval:ONE TIME Last released:12/05/2019 Released orders : SunDec 05, 2019 2:41 PM by: RITIKA CANAS Reason for Consult: -> encephalopathy adverse drug reaction Did you call or speak to the consulting provider? -> No Consult To -> Dr Jacob Schedule When? -> TODAY CON53 IP CONSULT TO PSYCHIATRY [#[id number]] Priority: STAT Class: H ospital Performed Reason for Consult: -> adverse med reaction Did you call or speak to the consulting provider? -> No Consult To -> Dr Aguirre Schedule When? -> TODAY Released on: 12/05/2019 2:41 P M CON9 IP CONSULT TO NEUROLOGY [#[id number]] Priority: STAT Class: Hospital Performe d Reason for Consult: -> encephalopathy adverse drug reaction Did you call or speak to the consulting provider? -> No Consult To -> Dr Jacob Schedule When? -> TODAY Released on: 12/05/2019 2:41 P M [id number] INITIAL PHYSICIAN ORDER: OBSERVATION* [#[id number]] Priority: Routine Class: ADT Pend Trans milvia Standing Order Information Remaining Occurrences:0/1 Interval:ONE TIME Last release d:12/05/2019 Released orders: SunDec 05, 2019 2:00 PM by: LUZ ELENA GATES Patient Class: -> OBS ERVATION Admitting Diagnosis -> Encephalopathy acute Admitting Physician -> CARLA OTERO Attending Physician -> CARLA OTERO [id number] INITIAL PHYSICIAN ORDER: OBSERVATION* [#[id number]] Priority: Routine Class: ADT Pend Transfer Patient Class: -> OBSERVATION Admitting Diagnosis -> Encephalopathy acute Admitting Physician -> CARLA OTERO Attending Physician -> CARLA OTERO Released on: 12/05/2019 2:00 PM [id number] INITIAL PHYSICIAN ORDER: INPATIENT [#[id number]] Bridgettesteph brayy: Routine Class: ADT Pend Transfer Standing [...] o- n- ) Admitting Diagnosis - > Rng-ugek-irdbhsq adverse reaction to medication Admitting Physician -> RITIKA CANAS Physician -> RITIKA CANAS Estimated Length of Stay -> 5-7 Midnights Discharge Plan: -> Other (Specify) [id number] INITIAL PHYSICIAN ORDER: INPATIENT [#[id number]] Priority: Routine Class: ADT Pend Tr sachin Standing Order Information Remaining Occurrences:0/ Interval:ONE TIME [...] i- o- n- ) Admitting Diagnosis -> Cbo-ankh-onmrmrw adverse reaction to medication Admitting Physician -> RITIKA CANAS Attending Physician -> MARY CANAS Estimated Length of Stay -> 5-7 Midnights Discharge Plan: -> Other (Specify) [id number] INITI ND PHYSICIAN ORDER: INPATIENT [#[id number]] Priority: Routine Class: ADT Pend Transfer Status: [...] i- o- n- ) Admitting Diagnosis -> Rab-wdvc-rrrzewm adverse reaction to medication Admitting Physician -> RITIKA CANAS Attending Physician -> MARY CANAS Estimated Length of Stay -> 5-7 Midnights Discharge Plan: -> Other (Specify) Released on: 12/05/2019 2:41 PM [id number] INITIAL PHYSICIAN ORDER: INPATIENT [#[id number]] Priority: Routine Class : ADT Pend Transfer [...] o- n- ) Adm itting Diagnosis -> Wwj-omdx-xnpcaqw adverse reaction to medication Admitting Physician -> RITIKA CANAS Attending Physician -> RITIKA CANAS Estimated Length of Stay -> 5-7 Midnights Discharge Plan: -> Other (Specify) Released on: 12/05/2019 2:41 PM COD2 FULL CODE [#[id number]] Priority: STAT Class: Hospital Performed Standing Order Information Remaining Occurrences:0 /1 Interval:CONTINUOUS Last released:12/05/2019 Released orders: SunDec 05, 2019 2:41 PM by: RITIKA CANAS COD2 FULL CODE [#[id number]] Priority: STAT Cl ass: Hospital Performed Released on: 12/05/2019 2:41 PM [id number] EEG 12-26 HR W/VIDEO [# [id number]] Priority: Routine Class: Hospital Performed Standing Order Information Remaining Occurre nces:0/1 Interval:ONE TIME Last released:12/05/2019 Released orders: SunDec 04 3:19 PM by: JOSE KHAN Reason for Exam: -> ams [id number] EEG 12-26 HR W/VIDEO [#[id number]] Priority: STAT Class: Hospital Performed Resulting Agency: [facility] Test ID: [id number] Reason for Exam: -> ams Released on: 12/05/2019 3:19 Maxwell Corona MR#: [id number] * Rm: [id number] 01Ht: 5' 5" Wt: 300 lb Code: Full Code Iso:Diagnosis:Encep halopathy acute [G93.40]Allergies: No Known Allergies -------- Current as of: 12/05/191806 NB=New Bag --aspirin (ASPIRIN) tablet 325 mg #[id number] Admin Amount: 1 Tab (1 x 325 mg Tab) Ordered Dose: 325 mg Route: Oral Freq: ONCE Start Date: 12/24/13 No administration times (back 96 hours, ahead 96 hours). ------diphenhydrAMINE (BENADRYL) capsule 50 mg #[id number] Admin Amount: 1 Cap (1 x 50 mg Cap) Ordered Dose: 50 mg Route: Ora l Freq: NOW Start Date: 12/24/13 No administration times (back 96 hours, ahe ad 96 hours). ------diazepam (VALIUM) tablet 5 mg #[id number] Admin Amount: 1 Tab (1 x 5 mg Tab) Ordered Dose: 5 mg Route: Oral Freq: ON CE Start Date: 12/24/13 No administration times (back 96 hours, ahead 96 hours). ------lidocaine (XYLOCAINE) 10 mg/mL (1 %) injection 1-30 mL #[id number] Admin Amount: 1-30 mL Ordered Dose: 1-30 mL Route: IntraDERMal Freq: ONCE Start Date: 12/24/13 No administration times (back 96 hours, ahead 96 hours). ------heparin (PF) 2 units/ml in NS infusion 2,000 Units #[id number] Admin Amount: 1,000 mL = 2,000 Units of 2 Units/mL Ordered Dose: 1,000 mL Ro belkofski: Irrigation Freq: ONCE Start Date: 12/24/13 No administration times (back 96 hours, ahead 96 hours). ------heparinized saline 2 units/mL infusion 1,000 Units #[id number] Admin Amount: 500 mL = 1,000 Units of 2 Units/mL Ordered Dose: 500 mL Ro belkofski: IntraarTERial Freq: ONCE Start Date: 12/24/13 No administration times (back 96 hours, ahead 96 hours). ------0.9% sodium chloride infusion #[id number] Ordered Dose: 75 mL/hr Route: IntraVENous Freq: CONTINUOUS Start Date: 12/24/13 Rate: 75 mL/hr Duration: No administration times (back 96 hours, ahead 96 hours). ------ioversol (OPTIRAY) 320 mg iodine/mL contrast injection 1-100 mL #[id number] Admin Amount: 1-100 mL Ordered Dose: 1-100 mL Route: IntraVENous Freq: RAD O NCE Start Date: 12/24/13 No administration times (back 96 hours, ahead 96 hours).Maxwell Bray MR#: [id number] * Rm: 441-01Ht: 5' 5.75" Wt: 300 lb Cod e: Full Code Iso:Diagnosis:Encephalopathy acute [G93.40]Allergies: No Known Allergies -------- Current as of: 12/05/19 180 NB=New Bag --gadobutrol (GADAVIST) contrast solution 1-10 mL #[id number] Admin Amount: 1-10 mL Ordered Dose: 1-10 mL Route: IntraVENous Freq: RAD O NCE Start Date: 01/13/14 No administration times (back 96 hours, ahead 96 hours). ------sodium chloride (NS) flush 5-10 mL #[id number] Admin Amount: 5-10 mL Ordered Dose: 5-10 mL Route: IntraVENous Freq: RAD ONCE Start Date: 01/13/14 No administration times (back 96 hours, ahead 96 hours). ------sodium chloride (NS) 0.9 % flush #[id number] Ordered Dose: Route: Freq: Start Date: 01/13 No administration times (back 96 hours, ahead 96 hours). ------morphine injection 2 mg #[id number] Admin Amount: 1 mL = 2 mg of 2 mg/mL Ordered Dose: 2 mg Route: IntraVENous Freq: NOW Start Date: 03/13/15 No administration times (back 96 hours, ahe ad 96 hours). ------influenza vaccine (4 yr+)(PF) (FLUCELVAX QUAD) inj ection 0.5*#[id number] Admin Amount: 0.5 mL Ordered Dose: 0.5 mL Route: IntraMUSCular Freq: PRIOR TO DISCHARGE Start Date: 03/30/16 No administration times (back 96 hours, ahead 96 hours). ------oxyCODONE-acetaminophen (PERCOCET) 5-325 mg per tablet 1 Tab #[id number] Admin Amount: 1 Tab Ordered Dose: 1 Tab Route: Oral Freq: NOW Start Date: 09/07/17 No administration times (back 96 hours, ahead 96 hours). ------barium sulfate (READICAT) 2.1 % (w/v), 2.0 % (w /w) oral suspension 9*#[id number] Admin Amount: 900 mL Ordered Dose: 900 mL Route: Oral Delgado q: RAD ONCE Start Date: 10/15/17 No administration times (back 96 hours, ahead 96 hours). ------iopamidol (ISOVUE 300) 61 % contrast injection 100 mL #[id number] Admin Amount: 100 mL Ordered Dose: 100 mL Route: IntraVENous Freq: RAD ONC E Start Date: 10/15/17 No administration times (back 96 hours, ahead 96 hours).Maxwell Bray MR#: [id number] * Rm: 441-01Ht: 5' 5.75" Wt: 300 lb Code: Full Code Iso:Diagnosis:Encephalopathy acute [G93.40]Allergies: No Known Allergies -------- Current as of: 12/05/191806 NB=New Bag --risperiDONE (RisperDAL m-tabs) disintegrating tablet 1 mg #[id number] Admin Amount: 1 Tab (1 x 1 mg Tab) Ordered Dose: 1 mg Route: Oral Freq: ONCE Start Date: 12/24/17 No administration times (back 96 hours, ahead 96 hours). ------ALPRAZolam (XANAX) tablet 2 mg #[id number] Admin Amount: 4 Tab (4 x 0.5 mg Tab) Ordered Dose: 2 mg Route: Ora l Freq: NOW Start Date: 12/24/17 No administration times (back 96 hours, ahe ad 96 hours). ------lamoTRIgine (LaMICtal) tablet 100 mg #[id number] Admin Amount: 1 Tab (1 x 100 mg Tab) Ordered Dose: 100 mg Route: Oral Delgado q: ONCE Start Date: 12/24/17 No administration times (back 96 hours, ahead 96 hours). ------OLANZapine (ZyPREXA zydis) disintegrating tablet 5 mg #[id number] Admin Amount: 1 Tab (1 x 5 mg Tab) Ordered Dose: 5 mg Route: Oral Delgado q: ONCE Start Date: 12/25/17 No administration times (back 96 hours, ahead 96 hours). ------LORazepam (ATIVAN) tablet 2 mg #[id number] Admin Amount: 4 Tab (4 x 0.5 mg Tab) Ordered Dose: 2 mg Route: Ora l Freq: NOW Start Date: 12/25/17 No administration times (back 96 hours, [facility] ad 96 hours). ------LORazepam (ATIVAN) injection 1 mg #[id number] Admin Amount: 0.5 mL = 1 mg of 2 mg/mL Ordered Dose: 1 mg Route: Int raVENous Freq: NOW Start Date: 12/25/17 No administration times (back 96 hours, [facility] ad 96 hours). ------barium sulfate (EZ PAQUE) 96 % (w/w) contrast suspension 17 6 g #[id number] Admin Amount: 176 g Ordered Dose: 176 g Route: Oral Freq: RAD ONCE Start Date: 08/02/18 No administration times (back 96 hours, ahead 96 hours). ------barium sulfate (EZ PAQUE) 96 % (w/w) contrast s uspension 176 g #[id number] Admin Amount: 176 g Ordered Dose: 176 g Route: Oral Delgado q: RAD ONCE Start Date: 08/02/18 No administration times (back 96 hours, ahead 96 hours).Maxwell Ritter MR#: [id number] * Rm: 441-01Ht: 5' 5.75" Wt: 300 lb Cod e: Full Code Iso:Diagnosis:Encephalopathy acute [G93.40]Allergies: No Known Allergies -------- Current as of: 12/05/19 180 NB=New Bag --aspirin chewable tablet 162 mg #[id number] Admin Amount: 2 Tab (2 x 81 mg Tab) Ordered Dose: 162 mg Route: Oral Freq: NOW Start Date: 08/10/19 No administration times (back 96 hours, ahead 96 hours). ------0.9% sodium chloride infusion 1,000 mL #[id number] Admin Amount: 1,000 mL Ordered Dose: 1,000 mL Route: IntraVENous Freq: ONC E Start Date: 08/16/19 Rate: 1,000 mL/hr Duration: No administration ti mes (back 96 hours, ahead 96 hours). ------methylPREDNISolone (PF) (Solu-MEDROL) injection 125 mg #[id number] Admin Amount: 2 mL = 125 mg of 125 mg/2 mL Ordered Dose: 125 mg Route: Int raVENous Freq: NOW Start Date: 08/16/19 No administration times (back 96 hours, ahe ad 96 hours). ------aspirin chewable tablet 162 mg #[id number] Admin Amount: 2 Tab (2 x 81 mg Tab) Ordered Dose: 162 mg Route: Oral Delgado q: NOW Start Date: 08/16/19 No administration times (back 96 hours, ahead 96 hours). ------haloperidoL (HALDOL) tablet 5 mg #[id number] Admin Amount: 1 Tab (1 x 5 mg Tab) Ordered Dose: 5 mg Route: Oral Delgado q: ONCE Start Date: 10/30/19 No administration times (back 96 hours, ahead 96 hours). ------cefTRIAXone (ROCEPHIN) 1 g in 0.9% sodium chloride (MBP/ADV) 50 m L M*#[id number] Admin Amount: 1 g Ordered Dose: 1 g Route: IntraVENous Freq: NOW Start Date: 12/05/19 Rate: 100 mL/hr Duration: 30 Minutes Administration linda es (back 96 hours, ahead 96 hours): 12/05/19: 1428NB -----0.9% sodium chloride infusion #[id number] Ordered Dose: 125 mL/hr Route: IntraVENous Freq: CONTINUOUS Start Date: 12/05/19 Rate: 125 mL/hr Duration: Administration times (back 96 hours, ahead 96 hours): 12/05/19: 1408NBAsaMaxwell MR#: [id number] * Rm : 441-01Ht: 5' 5" Wt: 300 lb Code: Full Code Iso:Diagnosis:Encephalopathy acute [G93. 40]Allergies: No Known Allergies -------- Current as of: 12/05/191806 NB=New Bag --enoxaparin (LOVENOX) injection 40 mg #[id number] Admin Amount: 0.4 mL = 40 mg of 40 mg/0.4 mL Ordered Dose: 40 mg Ro belkofski: SubCUTAneous Freq: EVERY 24 HOURS Start Date: 12/05/19 Administration times (back 96 h ours, ahead 96 hours): 12/05/19: 209912/06/19: 209912/07/19: 209912/08/19: 2099 ---furosemide (LASIX) injection 20 mg #[id number] Admin Amount: 2 mL = 20 mg of 10 mg/mL Ordered Dose: 20 mg Ro belkofski: IntraVENous Freq: ONCE Start Date: 12/05/19 Administration [...] FileFollow-up Inf ormationFollow-up With:Ritika Canas MDDetails:Comments:Contact Info:[place] Jonessam [address]nn [address] [place] [phone] Name Value Range Interpretation Code Description Data Melani rce(s) Supporting Document(s ) ID Date Data Source [id number] 12/05/2019 04:36:09 PM EDT [facility] The history is provided by the patient era nd the EMS personnel.11:17 AM: Maxwell Bray [...] of morbidity or mortality cardiac cath at [facility] approx 6-8 months ag o Other [...] week Gets together: Once a week Attends mosque service: More than 4 times per year [...] QTC Calculation (Bezet) 515 ms Calculated P [place] 40 degrees Calculat ed R [place] 41 degrees Calculated T [place] 147 degrees Diagnosis Sinus tachycardiaProb able left [...] Time: 12/05/19 12:38 PMResult Value Ref Range [place] level 1.53 (HH) 0.6 - 1.2 MMOL/LLACTIC ACID Collection Time: 12/04 12:40 PMResult Value Ref Range Lactic acid 1.1 0.4 - 2.0 MMOL/LEKG:Sinus tachy cardia at 100 BPM, normal axis, nothing acute.Interpreted by Julio Manzo MD11:2 0 AM 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 [...] cardiac monitoring, CXR, and head CT. Will surgical specialist ocephin, IV fluids, and oxygen. Will [...] asneeded. Other, Phys, MDMaoJulio MD I, Kishore Lozano, [...] Supporting Document(s ) ID Date Data Source [id number] 12/05/2019 04:05:06 PM EDT [facility] [address] [place] [address] [id number] CONSULT NOTEPatient: Maxwell Bray Se x: male [...] or sensory fuentes es. Lab significant of [place] 1.53 and elevatedliver enzymes. Neurology consult ed for encephalopathy/drug adverse reaction.Past Medical History:Diagnosis Date Other unknown and unspecified cause of morbidity or mortality cardiac cath at [facility] approx 6-8 months ago Other [...] QTC Calculation (Bezet) 515 ms Calculated P [place] 40 degrees Calculated R [place] 41 degrees Calculated T [place] 147 degrees Diagnosis Sinus tachycardiaProbable left atrial [...] Time: 12/05/19 12:38 PMResult Value Ref Range [place] level 1.53 (HH) 0.6 - 1.2 MMOL/LLACTIC [...] were created on an independent workstation. 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 Seizure.Plan: Mri Brain Ammonia Monitor lithium level daily EEG - 24 hrs Seizure precautionsPaulson Gerald Flores 2019 3:19 [id number] Name Value Range Interpretation Code Description Data Melani rce(s) Supporting Document(s ) ID Date Data Source [id number] 12/05/2019 03:37:45 PM EDT [facility] sbar-q given to Ev berger to floor Name Value Range Interpretation Code Description Data Melani rce(s) Supporting Document(s ) ID Date Data Source [id number] 12/05/2019 03:29:57 PM EDT [facility] sbar-q given to Sheri UGALDE on floor Name Value Range Interpretation Code Description Data Melani rce(s) Supporting Document(s ) ID Date Data Source [id number] 12/05/2019 03:28:02 PM EDT [facility] [...] h igh dose amytriptylene 200 mg nightly, [place], andVraylar 6 mg. :[place] level on prior admission therapeutic. Patient's wifecontactedthis [...] of morbidity or mortality cardiac cath at [facility] approx 6-8 months ag o Other [...] week Gets together: Once a week Attends mosque service: More than 4 times per year [...] Calculati on (Bezet) 515 ms Calculated P [place] 40 degrees Calculated R [place] 41 degrees Elena culated T [place] 147 degrees Diagnosis Sinus tachycardiaProbable left atrial [...] Time: 12/05/19 12:38 PMResult Value Ref Range [place] level 1.53 (HH) 0.6 - 1.2 MMOL/LLACTIC ACID Collection Time: 12/04 12:40 PMResult Value Ref Range Lactic acid 1.1 0.4 - 2.0 MMOL/All lab results for the last 24 hours reviewed. Serun [place] level toxicAssessment/PlanPrinci pal Problem: Adverse drug reaction, initial encounter (12/05/2019) LithiumActive Prob lems: Encephalopathy acute (12/05/2019) Vpa-dsdw-zapujne adverse reaction to med ication (12/05/2019)Neuro, and psych evaluation, hydrationGeorge MD Corey Name Value Range Interpretation Code Description Data Melani rce(s) Supporting Document(s ) ID Date Data Source [id number] 12/06/2019 12:36:10 PM EDT [facility] Name Value Range Interpretation Description Data Sup porting Code Source(s) Document(s ) Service comment [facility] Bacteria [facility] - Good identified in [facility] Unspecified Hospital specimen by Culture ID Date Data Source [id number] 12/05/2019 04:18:26 PM EDT [facility] Name Value Range Interpretation Description Data Sup porting Code Source(s) Document(s ) Color of Urine YEL Abnormal (applies [facility] - to non-numeric Good results) [facility] Appearance of CLEAR Abnormal (applies [facility] - Urine to non-numeric Good results) [facility] Specific gravity 1.033 1.003-1. Above high normal [facility] - of Urine by 030 Good Refractometry [facility] pH of Urine by 5.5 4.6-8.0 [facility] - Test strip Good [facility] Protein 30 mg/dL NEG Abnormal (applies [facility] - [Mass/volume] in to non-numeric Good Urine by Test results) [facility] Glucose NEG [facility] - [Mass/volume] in Good Urine by [facility] Automated test [facility] strip Ketones 15 mg/dL NEG Abnormal (applies [facility] - [Presence] in to non-numeric Good Urine by results) [facility] Automated test [facility] strip Bilirubin.total NEG Abnormal (applies [facility] - [Presence] in to non-numeric Good Urine results) [facility] Hemoglobin NEG [facility] - [Presence] in Good Urine by Test [facility] Urobilinogen 1.0 0.2-1.0 [facility] - [Presence] in EU/dL Good Urine by [facility] Automated test Hospital strip Nitrite NEG [facility] - [Presence] in Good Urine by [facility] Automated test Hospital strip Leukocyte NEG [facility] - esterase Good [Presence] in [facility] Urine by Hospital Automated test strip Leukocytes 0-5 [facility] - [Presence] in Good Urine sediment [facility] by Light Hospital microscopy Erythrocytes 0-2 [facility] - [#/area] in Good Urine sediment [facility] by Microscopy Hospital high power field Epithelial cells 0-10 [facility] - [#/area] in Good Urine sediment [facility] by Microscopy Hospital high power field Bacteria NONE Abnormal (applies [facility] - [Presence] in to non-numeric Good Urine sediment results) [facility] by [facility] microscopy ID Date Data Source [id number] 12/05/2019 03:26:35 PM EDT [facility] Name Value Range Interpretation Description Data Sup porting Code Source(s) Document(s ) Bilirubin NEG [facility] - Good [Presence] in [facility] Urine by Hospital Confirmatory method ID Date Data Source [id number] 12/05/2019 02:22:27 PM EDT [facility] I spoke to Dr. Canas regarding Observation Status. Dr. Canas said patient will bemade In Patient Status today. Name Value Range Interpretation Code Description Data Melani rce(s) Supporting Document(s ) ID Date Data Source [id number] 12/05/2019 02:03:27 PM EDT [facility] SW/Psych Screener attempted to meet with Pt for MH evaluation. Pt was foundlying on stretcher with his eyes open, staring at the wall. [employer] Deal[employer] Porter knows this Ptfrom previous admission to the medical floor. When ask ed if Pt rememberedwriter, Pt appeared confused, but said he did. Pt stated he fell today, doesn'tremember how he was brought to the hospital. Pt appeared to be searching for hiswords and was having difficulty speaking. Pt unclear of where he is, stating"[place]" when asked where he was and "[place]" when asked what month it was. Whenasked if Pt was exhibiting any feelings of S/I, H/I or A/V Hallucinatio ns, Ptresponded with, "No," and confirmed he has been compliant with his psychiatricm edications. [employer] conferred with ER Attending, Dr. Manzo, who states that Ptwi ll most likely be medically admitted at this time.Krystina Centeno LM, CASAC-2 Name Value Range Interpretation Code Description Data Melani rce(s) Supporting Document(s ) ID Date Data Source [id number] 12/05/2019 12:53:37 PM EDT [facility] Supporting Document(s ) ID Date Data Source [id number] 12/05/2019 01:31:37 PM EDT [facility] Name Value Range Interpretation Description Data Sup porting Code Source(s) Document(s ) Lactate 1.1 0.4-2.0 [facility] - Good [Moles/volu MMOL/L [facility]] in Hospital Serum or Plasma ID Date Data Source [id number] 12/10/2019 05:19:22 AM EDT [facility] Name Value Range Interpretation Description Data Sup porting Code Source(s) Document(s ) Service comment [facility] Bacteria BSS - Good identified in [facility] Unspecified Hospital specimen by Culture ID Date Data Source [id number] 12/05/2019 02:14:34 PM EDT [facility] Name Value Range Interpretation Description Data Sup porting Code Source(s) Document(s ) [place] 1.53 0.6-1.2 Above upper panic [facility] - Good [Moles/volu MMOL/L limits [facility]] in Hospital Serum or Plasma CALLED TO AND READ BACK BYSUSI GAMBLE 1414 12/05/19 [facility] ID Date Data Source [id number] 12/05/2019 01:31:37 PM EDT [facility] - Good [facility] Name Value Range Interpretation Description Data Sup porting Code Source(s) Document(s ) Troponin 0.00-0.05 [facility] - Good I.cardiac [facility] [Mass/volume Hospital ] in Serum or Plasma [...] to 1.50 ng/mL ID Date Data Source [id number] 12/05/2019 01:31:37 PM EDT [facility] - Good [facility] Value Range Interpretation Description Data Sup porting Code Source(s) Document(s ) Sodium 134 136-145 Below low normal [facility] - Good [Moles/volume] mmol/L [facility] in Serum or Hospital Plasma Potassium 3.5 3.5-5.1 [facility] - Good [Moles/volume] mmol/L [facility] in Serum or Hospital Plasma Chloride 104 98-107 [facility] - Good [Moles/volume] mmol/L [facility] in Serum or Hospital Plasma Carbon 26 21-32 [facility] - Good dioxide, total mmol/L [facility] [Moles/volume] Hospital in Serum or Plasma Anion gap in 7 mmol/L 10-20 Below low normal [facility] - Go od Serum or [facility] Plasma Hospital Glucose 127 74-106 Above high normal [facility] - Good [Mass/volume] mg/dL [facility] in Serum or Hospital Plasma Urea nitrogen 21 mg/dL 7-18 Above high normal [facility] - Good [Mass/volume] [facility] in Serum or Hospital Plasma Creatinine 0.94 0.70-1.3 [facility] - Good [Mass/volume] mg/dL 0 [facility] in Serum or Hospital Plasma Glomerular >60 [facility] - Good filtration [facility] rate/1.73 sq M Hospital predicted among blacks [Volume Rate/Area] in Serum or Plasma by Creatinine-bas ed formula (MDRD) Glomerular >60 [facility] - Good filtration [facility] rate/1.73 sq M Hospital predicted among non-blacks [Volume Rate/Area] in Serum or Plasma by Creatinine-bas ed formula (MDRD) (NOTE)Estimated GFR is calculated using the Modification of Diet in RenalDisease (MDRD) Study equation, reported for both Americans(GFRAA) and non- Americans (GFRNA), and normalized to 1.7 3n5bngf surface area. The physician must decide which [...] normal [facility] - Good Serum or Plasma [facility] Hosp ital Bilirubin.total 0.9 mg/dL 0.2-1.0 [facility] - Good [Mass/volume] in Serum or [facility] Plasma Alanine aminotransferase 34 U/L 13-61 [facility] - Good [Enzymatic activity/volume] [facility] in Serum or Plasma Aspartate aminotransferase 47 U/L 15-37 Above high [facility] - Good [Enzymatic activity/volume] normal [facility] in Serum or Plasma by With P-5'-P Alkaline phosphatase 171 U/L 45-117 Above high [facility] - Good [Enzymatic activity/volume] normal [facility] in Serum or Plasma Protein [Mass/volume] in 7.5 g/dL 6.4-8.2 [facility] - Good Serum or Plasma [facility] Hosp ital Albumin [Mass/volume] in 3.8 g/dL 3.5-4.7 [facility] - Good Serum or Plasma by [facility] ospital Bromocresol purple (BCP) dye binding method Globulin [Mass/volume] in 3.7 g/dL 1.7-4.7 [facility] - Good Serum by [facility] Albumin/Globulin [Mass 1.0 0.7-2.8 [facility] - Good Ratio] in Serum or Plasma [facility] ID Date Data Source [id number] 12/05/2019 01:31:37 PM EDT [facility] - Good [facility] Name Value Range Interpretation Description Data Sup porting Code Source(s) Document(s ) Magnesium 2.9 mg/dL 1.6-2.6 Above high normal [facility] - Good [Mass/volume] [facility] in Serum or [facility] Plasma ID Date Data Source [id number] 12/05/2019 01:20:04 PM EDT [facility] - Good [facility] Name Value Range Interpretation Description Data Sup porting Code Source(s) Document(s ) Prothrombin 10.6 sec 9.4-11.1 [facility] - Good time (PT) [facility] INR in 1.0 0.8-1.2 [facility] - Good Platelet poor [facility] plasma by Hospital Coagulation assay ID Date Data Source [id number] 12/05/2019 01:07:21 PM EDT [facility] Name Value Range Interpretation Description Data Sup porting Code Source(s) Document(s ) Leukocytes 12.4 4.8-10.6 Above high normal [facility] - [#/volume] in K/uL Good Blood by [facility] Automated count [facility] Erythrocytes 5.03 4.70-6.0 [facility] - [#/volume] in M/uL 0 Good Blood by [facility] Hemoglobin 15.4 14.0-18. [facility] - [Mass/volume] in g/dL 0 Good Blood [facility] Hematocrit 45.8 % 42.0-52. [facility] - [Volume 0 Good Fraction] of [facility] Blood by Hospital Automated count Erythrocyte mean 91.1 FL 81.0-94. [facility] - corpuscular 0 Good volume [Entitic [facility] volume] by Hospital Automated count Erythrocyte mean 30.6 PG 27.0-35. [facility] - corpuscular 0 Good hemoglobin [facility] [Entitic mass] Hospital by Automated count Erythrocyte mean 33.6 30.7-37. [facility] - corpuscular g/dL 3 Good hemoglobin [facility] concentration Hospital [Mass/volume] by Automated count Erythrocyte 12.9 % 11.5-14. [facility] - distribution 0 Good width [Ratio] by [facility] Automated count Hospital Platelets 164 K/uL 130-400 [facility] - [#/volume] in [facility] Blood by [facility] Automated count Hospital Platelet mean 9.5 FL 9.2-11.8 [facility] - volume [Entitic Good volume] in Blood [facility] Automated Hospital count Nucleated 0.0 PER 0 [facility] - erythrocytes/100 100 WBC Good leukocytes [facility] [Ratio] in Blood [facility] Nucleated 0.00 0.0-0.01 [facility] - erythrocytes K/uL Good [#/volume] in [facility] Segmented 80 % 48.0-72. Above high normal [facility] - neutrophils/100 0 Good leukocytes in [facility] Lymphocytes/100 8 % 18.0-40. Below low normal [facility] - leukocytes in 0 [facility] Blood [facility] Monocytes/100 10 % 2.0-12.0 [facility] - leukocytes in [facility] Eosinophils/100 1 % 0.0-7.0 [facility] - leukocytes in [facility] Basophils/100 0 % 0.0-3.0 [facility] - leukocytes in [facility] Immature 0 % 0-0.5 [facility] - granulocytes/100 Good leukocytes in [facility] Automated count Segmented 10.0 2.3-7.6 Above high normal [facility] - neutrophils K/UL Good [#/volume] in [facility] Lymphocytes 1.0 K/UL 0.9-4.2 [facility] - [#/volume] in [facility] Monocytes 1.2 K/UL 0.1-1.7 [facility] - [#/volume] in [facility] Eosinophils 0.1 K/UL 0.0-1.0 [facility] - [#/volume] in [facility] Basophils 0.0 K/UL 0.0-0.4 [facility] - [#/volume] in Good Blood [facility] Immature 0.1 K/UL 0.0-0.17 [facility] - granulocytes Good [#/volume] in [facility] Blood by Hospital Automated count Differential [facility] - cell count Good method - Blood [facility] ID Date Data Source [id number] 12/10/2019 05:19:23 AM EDT [facility] Name Value Range Interpretation Description Data Sup porting Code Source(s) Document(s ) Service comment [facility] Bacteria [facility] identified in [facility] Unspecified Hospital specimen by Culture ID Date Data Source [id number] 12/05/2019 12:24:35 PM EDT [facility] PELVIS one view.History: TraumaThe study is suboptimal due to the patient's body habitus.There is no evidence of fracture , dislocation, subluxation, bone erosion orarthritis.IMPRESSION: Grossly normal s tudy. Signing date/time: 12/05/2019 12:24 PMSigned by: CURTIS VARMA Name Value Range Interpretation Code Description Data Melani rce(s) Supporting Document(s ) ID Date Data Source [id number] 12/05/2019 12:23:11 PM EDT [facility] Supporting Document(s ) ID Date Data Source [id number] 12/05/2019 11:34:39 AM EDT [facility] BIBA for fall in the middle of the night while going to bathroomC/p left hip pain Name Value Range Interpretation Code Description Data Melani rce(s) Supporting Document(s ) ID Date Data Source [id number] 12/05/2019 11:21:27 AM EDT [facility] Please enter the current weight for this patient in [facility]. Thank you. Name Value Range Interpretation Code Description Data Melani rce(s) Supporting Document(s ) ID Date Data Source [id number] 11/23/2019 02:02:47 PM EDT [facility] [...] E66.01ICD-9-CM: 278.01 07/19/2018 - Present Spells ICD-10-CM: [id number]-AJ: IMO00 01 04/08/2016 - Present Seizure disorder [...] tr eated with parenteral hydration with benefit o6egakbmrssbhkjgfmz responses. Of note i s fact that patient was scheduled to begin ECTtreatment for depression when Covid 1 9 pandemic curtained this plan.Consults: PsychiatrySignificant Diagnostic Studies : labs: microbiology: , radiology: and cardiacgraphics:Discharge Medications: @DISCHARGEMEDLIST@Activity: Activity as toleratedDiet: Resume previous dietWound Care: None neededFollow-up: This examiner to follow in officeRitika Canas MD Name Value Range Interpretation Code Description Data [facility] rce(s) Supporting Document(s ) ID Date Data Source [id number] 11/03/2019 09:41:35 PM EDT [facility] Verbal shift change report given to , RN (oncoming nurse) by Scott Beverly RN (offgoing nurse). Report included the fo llowing information SBAR, Kardex,Intake/Output, MAR and Recent Res ults. Name Value Range Interpretation Code Description Data [facility] ) ID Date Data Source [id number] 11/03/2019 03:34:07 PM EDT [facility] Per psych note, CM to confirm patient ap pt with psychiatristCall to Dr Mateo Méndez office # [phone], office [facility] ent aware of # to call to make his own appt, [facility] states his will be coming this evening to drive him homeCare Management InterventionsPCP Verified by CM: YesPalliative Care Criteria Met (RRAT>21 & CHF Dx)?: NoMode of Transport at Discharge: Other (see comment)( yanni maciel between approx5-6)Transition of Care Consult (CM Consult): Discharge Planning Physical Therapy Consult: NoOccupational Therapy Consult: NoSpeech Therapy Consul t: NoCurrent Support Network: Lives with Spouse, Own Home( [place] [phone])Confirm Follow Up Transport: FamilyThe Patient and/or Patient [...] Name Value Range Interpretation Code Description Data [facility] rce(s) Supporting Document(s ) ID Date Data Source [id number] 11/03/2019 02:45:48 PM EDT [facility] PHYSICAL THERAPY TREATMENTPatient: Maxwell Bray (49 [...] Supporting Document(s ) ID Date Data Source [id number] 11/03/2019 01:09:08 PM EDT [facility] General [...] past 8 hrs: BP Temp Pulse Resp VlD814/05/14 0752 115 /76 97.6 F (36.4 C) [...] Name Value Range Interpretation Code Description Data [facility] Document(s ) ID Date Data Source [id number] 11/03/2019 10:52:30 AM EDT [facility] [...] on a ll current psychotropic medications Requesting catalytic case operator to confirm his a ppointment with Dr. mariebefore he discharged Please re consult if n eeded Name Value Range Interpretation Code Description Data [facility](s ) ID Date Data Source [id number] 11/03/2019 07:12:34 AM EDT [facility] Bedside and Verbal shift change report g iven to Meño Rose, RN (oncomingnurse) by June Ochoa RN (offgoing nurse). Repor t included the followinginformation SBAR, Kardex, Intake/Output, MAR, Recent Resul ts and Med Rec Status. Name Value Range Interpretation Code Description Data [facility](s) Supporting Document(s ) ID Date Data Source [id number] 11/02/2019 11:18:25 PM EDT [facility] [...] Name Value Range Interpretation Code Description Data [facility] Supporting Document(s ) ID Date Data Source [id number] 11/02/2019 07:34:02 PM EDT [facility] Bedside shift change report given to GILLIAN KEATING (oncoming nurse) by Meño Rose(offgoing nurse). Report included the following information SBAR, Kardex andIntake/Output. Name Value Range Interpretation Code Description Data [facility](s) Supporting Document(s ) ID Date Data Source [id number] 11/02/2019 05:14:50 PM EDT [facility] Telehealth Progress NotePursuant to the emergency declaration under the Laird Act and the NationalEmergencies Act, 1135 wa iver authority and the Coronavirus Preparedness andResponse Supplemental Ap propriations Act, this Virtual Visit was conducted,with patient's (and/or legal cristi angelian's) consent, to reduce the patient's riskof exposure to COVID-19 and provide necessary medical care.[x] I have provided the patient with basic information about tele-psychiatryand obtained their consent to participate in services using technology .I was at home while conducting this encounter.This session was conducted via [] Telephone [x] VideoconferenceDate: 11/02/2019Account Franny mber: [id number]: Maxwell Robin & Joe PROGRESS NOTE:Coordinated treatment team rounds conducted with psychiatrist, patient, nursesand/or social media job titles present ; dis cussions held with catalytic case operator and/or familymembers; Chart reviewed in full in cluding healthcare consultant notes, ancillary staffnotes, vitals and labs in [facility] EMR reviewed in full.SUBJECTIVE: Pt seen for first time on Video with my SW Mendy And RN , hereports less hallucinations , as they are still there in the morning But overall better since got back on vraylar told me was scheduled for ECT at [facility] but due to elective , [...] past 8 hrs: Temp Pulse Resp BP FzT80411/02/19 1546 98.3 F (36.8 C) 84 18 [...] (LOVENOX) injection 40 mg 40 mg SubCUTAneous [id number] Medications:C urrent Facility-Administered MedicationsMedication Dose Route Frequen [...] ENOX) injection 40 mg 40 mg SubCUTAneous [id number]/PLAN:Continue current kalie atment as pt is stabalizingPatient [...] Supporting Document(s ) ID Date Data Source [id number] 11/02/2019 03:02:33 PM EDT [facility] General Daily Progress NoteAdmit Date: Hospital [...] (LOVENOX) injection 40 mg 40 mg SubCUTAneous T22TRstmnrkol:Patient Vitals for the past 8 hrs: BP [...] contrast. Sagittal and coronal reconstruction was performed.Uti ArtCorgiing taping supervisor algorithm the examination was performed to optimizeimaging [...] Name Value Range Interpretation Code Description Data [facility] rce(s) Supporting Document(s ) ID Date Data Source [id number] 11/02/2019 07:48:14 AM EDT [facility] Verbal shift change report given to Jody wells RN (oncoming nurse) by Juliane UGALDE (offgoing nurse). Report included the following information SBAR,Kardex, Intake/Output, MAR and Recent Results Name Value Range Interpretation Code Description Data [facility] rce(s) Supporting Document(s ) ID Date Data Source [id number] 11/02/2019 05:41:52 AM EDT [facility] Patient AOX3 with periodic confusion. In bed watching TV. All med's given asordered by MD, tolerated well. Fall precaution m easures reinforced. Call bellwithin reach, bed in low position. Has urinal and comm ode at bedside. Voices nocomplaint at this time. Will continue to monitor pt. Name Value Range Interpretation Code Description Data [facility] Supporting Document(s ) ID Date Data Source [id number] 11/01/2019 08:46:30 PM EDT [facility] [...] Document Harsh Scale and appropriate interventions in [facility].Outcome: P rogressing Towards GoalNote: Pressure Injury Interventions:Sensory [...] Name Value Range Interpretation Code Description Data [facility] Supporting Document(s ) ID Date Data Source [id number] 11/01/2019 08:00:09 PM EDT [facility] Verbal shift change report given to Ly vitale RN (oncoming nurse) by SUSI Palacio (offgoing nurse). Report included the following information SBAR,Intake/Output, MAR and Recent Results. Name Value Range Interpretation Code Description Data [facility] Supporting Document(s ) ID Date Data Source [id number] 11/01/2019 03:49:42 PM EDT [facility] Adult Progress NoteDate: 11/01/2019Account Number: [id number]: Maxwell Mendieta TrimbleDiagnosis: History of mood and [...] footNo Known AllergiesSocial HistoryTobacco Use Smoking status: Samkey baez Smoker Smokeless tobacco: Never UsedSubstance Use [...] (LOVENOX) injection 40 mg 40 mg SubCUTAneous [id number] following information was reviewed and discussed: Patient [...] Supporting Document(s ) ID Date Data Source [id number] 11/01/2019 02:42:08 PM EDT [facility] General Daily Progress NoteAdmit Date: Hospital [...] past 8 hrs: BP Temp Pulse Resp PxV165/03/14 0715 101/67 98 F (36.7 C) 70 [...] Sagittal and coronal reconstr uction was performed.Utilizing taping supervisor algorithm the examination was performed to optimizeimaging [...] Prominent interstitial markings arefelt to reflect vascular microbiological analyst 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 Repeat PA andlateral views the chest are advised i f there is clinical concern for pneumoniaor congestive failure.Assessment:Active Pro blems: Bipolar disorder with severe depression (HCC) (10/29/2019)Plan:Improvin g status Name Value Range Interpretation Code Description Data Melani rce(s) Supporting Document(s ) ID Date Data Source [id number] 11/01/2019 07:08:12 AM EDT [facility] Verbal shift change report given to Chandrakant Albert RN (oncoming nurse) byMelanie Hoffmann RN (offgoing nurse). Report incl uded the following informationSBAR, Kardex, Intake/Output, MAR and Recent Results. Name Value Range Interpretation Code Description Data Melani rce(s) Supporting Document(s ) ID Date Data Source [id number] 10/31/2019 07:59:03 PM EDT [facility] Verbal shift change report given to Shreya adrian RN (oncoming nurse) by SUSI Palacio (offgoing nurse). Report included the following information SBAR,Kardex, Intake/Output, MAR and Recent Results. Name Value Range Interpretation Code Description Data Melani rce(s) Supporting Document(s ) ID Date Data Source [id number] 10/31/2019 05:09:32 PM EDT [facility] [...] [] Telephone [x] VideoconferenceSubjective:Patient: Maxwell BrayMRN #: [id number]: [id number]: 49 y.o. Sex: maleAdm it Date: 10/29/2019Attending: [...] week Gets together: Once a week Attends mosque service: More than 4 times per year [...] morbidity or mortal ity cardiac cath at [facility] approx 6-8 months ago Other unknown [...] past 8 hrs: BP Temp Pulse Resp ImT49610/31/19 0754 120/60 97.2 F (36.2 C) 70 20 95 %MENTA L STATUS EXAM:FINDINGS WITHIN NORMAL LIMITS (WNL) UNLESS OTHERWISE STATED BELOW:Sens orium [id number] Well relatedAppearance: OverweightMotor Behavior: Not examined Speech: [...] Supporting Document(s ) ID Date Data Source [id number] 10/31/2019 04:37:18 PM EDT [facility] - [place] [address] [address] [id number]: MAXWELL BRAYMRN: [id number]: [id number]#: [id number] DATE: 10/29/2019 CONSULTATIONHISTORY OF PRESENT ILLNESS: The [...] and Klonopin.PAST MEDICAL HISTORY: Cardiac cath at [facility] six to eight months ago, concussions,periodic [...] RONAL AGUIRRE, MDDD: 10/30/2019 14:44:41/BR /[id number] / [id number] Name Value Range Interpretation Code Description Data [facility] rce(s) Supporting Document(s ) ID Date Data Source [id number] 10/31/2019 01:47:36 PM EDT [facility] General [...] Supporting Document(s ) ID Date Data Source [id number] 10/31/2019 12:59:26 PM EDT [facility] physical Therapy TREATMENTPatient: Maxwell Bray [...] Supporting Document(s ) ID Date Data Source [id number] 10/31/2019 07:10:46 AM EDT [facility] Bedside and Verbal shift change report g iven to Samy RN (oncoming nurse)by Cristofer Valenzuela RN (offgoing nurse). Repo rt included the following information SBAR, Kardex, MARand Recent Results. Name Value Range Interpretation Code Description Data [facility](s) Supporting Document(s ) ID Date Data Source [id number] 10/30/2019 11:27:14 PM EDT [facility] [...] Name Value Range Interpretation Code Description Data [facility] rce(s) Supporting Document(s ) ID Date Data Source [id number] 10/30/2019 08:09:55 PM EDT [facility] [...] Name Value Range Interpretation Code Description Data [facility] Document(s ) ID Date Data Source [id number] 10/30/2019 08:06:30 PM EDT [facility] Telephoned Dr. Oc tompkins pt's c/o new sy mptoms of hallucinations. Orderedreceived, relayed to RN, SUSI Marroquin on shift supervisor film processing Name Value Range Interpretation Code Description Data [facility] Supporting Document(s ) ID Date Data Source [id number] 10/30/2019 08:01:35 PM EDT [facility] Verbal shift change report given to Cecilia wells (oncoming nurse) by Samy Albert RN (offgoing nurse). Report included the fo llowing information SBAR, ProcedureSummary, Intake/Output, MAR and Recent Results. Name Value Range Interpretation Code Description Data [facility] Supporting Document(s ) ID Date Data Source [id number] 10/30/2019 02:58:51 PM EDT [facility] Problem: Mobility Impaired (Adult and Pe diatric)Goal: *Therapy Goal (Edit Goal, Insert Text)Note:PHYSICAL THERAPY EVALUA TIONPatient: Maxwell Anam Asa (49 y.o. male)Date: 10/30/2019Primary Diagnosis: Bi polar [...] of morbidity or mortality cardiac cath at [facility] approx 6-8 months ago Other [...] 1985 aarthroscopic knee surgery HX ORTHOPAEDI C 1991 broken footPrior Level of Function/Home Situation: independentHome SituationHome Environment: Private residence# Steps to Enter: 1One/Two Stor y Residence: One storyLiving Alone: NoSupport Systems: Family member(s)Patient Expects to be Discharged to:: Patient roomCurrent DME Used/Available at Home: NoneCritical Behavior:Neurologic State: AlertOrientation Level: Oriented L7Tktaypdbo: Appropriate for age attention/concentrationSafety/Judgement: Awareness of environmentSkin:Strength:Strength: [...] Supporting Document(s ) ID Date Data Source [id number] 10/30/2019 02:50:37 PM EDT [facility] [...] [] Telephone [] VideoconferenceSubjective:Patient: Maxwell BrayMRN #: [id number]: [id number]: 49 y.o. Sex: maleAdm it Date: 10/29/2019Attending: [...] Supporting Document(s ) ID Date Data Source [id number] 10/30/2019 02:06:26 PM EDT [facility] Care Management InterventionsPCP Verifie d by CM: YesPalliative Care Criteria Met (RRAT>21 & CHF Dx)?: NoMode of Transport at Discharge: Other (see comment)(family)Transition of Care Consu lt (CM Consult): Discharge PlanningPhysical Therapy Consult: NoOccupational Therapy Consult: NoSpeech Therapy Consult: NoCurrent Support Network: Lives with Spouse, Own Home( [place] [phone],c-[phone])Confirm Foll ow Up Transport: FamilyThe Patient and/or Patient Commercial Housekeeper was Provided with a Choice of Providerand [...] home with his , is completely independent BOTTLER, emanuel SMYTH. Patient normally works (pre-covid) and drives. CM dept roleexplained, patient is currently denying any HC or rehab needs and states hiswife will drive him home upon DC. PT eval is ordered and pending. CM dept laila lfollow if patient has any PT needs.CASE MANAGEMENT PSYCHOSOCIAL ASSESSMENTMaxwell Mendieta Armada Admission Date: 10/29/2019MRN: [id number] of : 1970Current date: 10/30/2019DISCHARGE PLAN: homePatient Info rmation:Patients Preferred Name: brjosePatient Arrived Via: StretcherTransferred [facility] a [facility]: NoInformation Obtained From: PatientPatient Objects to Receiving Bloo d: NoMRSA Assessment: Not applicableAuditory Impairment: NoneRetired Read Only-Readmi t Risk ToolSupport Systems: Family member(s)History of Falls Within Past 3 Months: NoNeeds Assistance with Wound Care AND/OR Mgnt of O2, Nebulizer: NoRequires Financial, Physical and/or Educational Assistance With Medications: NoHistory o f Mental Illness: NoLiving Alone: NoPCP: Ritika Canas MDAdmitting Provider: Cristi Canas MDSENT[facility] BOTTLER: naPayor: Payor: [facility] / Plan: [facility] /Product Type: [facility] Payor: @[email or web address] disorder with severe depression (HCC) [F 31.4]Bipolar disorder with severe depression (HCC) [F31.4]Patient Active Problem List Diagnosis Code H/O gastric bypass Z98.84 Insomnia G47.00 Neuropathic pain of surekha glover M79.2 Seizure disorder ([facility]) G40.909 Spells R68.89 Severe obesity (HCC) [...] solving and planning: Notes:Adeq uate coping skills: Notes:Jainism/Cultural barriers: Notes:If unable to assess or n ot applicable: Notes:Suicide Assessment:Primary Diagnosis or Primary Complaint of an Emotional Behavior Disorder: NoPatient is Currently Experiencing Depr ession: NoSuicidal Ideation/Attempts: NoHomicidal Ideation/Attempts: NoAlcohol /Drug Intoxication: NoHallucinations/Delusions: NoPending, A ctive, or Temporary Skilled Nursing Orders: NoAggressive/Inappropriate Behavior: NoR eadmit Risk:Support Systems: Family member(s)Advanced Care Planning:Confirm Advance Directive: NoneDiscussed with the patient and all questions fully answered . He will call me ifany problems arise. Name Value Range Interpretation Code Description Data Melani rce(s) Supporting Document(s ) ID Date Data Source [id number] 10/30/2019 12:38:13 PM EDT [facility] General Daily Progress NoteAdmit Date: Hospital day: .tdSubjective:Patient markedly improved this am, speech now no rmal. Denies possibleinadvertent overdose of chronic meds. Accepting of psych consult . PT toevaluate. Claims symptoms of mild nausea. Meds reviewed claims to be takin gElavil G 150 mg HS ,Klonopin 1 mg twice a day, [place] 300 twice daily, Vraylar3 m g dailyCurrent [...] past 8 hrs: BP Temp Pulse Resp FrU23910/30/19 0727 (!) 130/96 98 F (36.7 C) [...] Name Value Range Interpretation Code Description Data [facility] rce(s) Supporting Document(s ) ID Date Data Source [id number] 10/30/2019 07:52:05 AM EDT [facility] Verbal shift change report given to Chandrakant rosa RN (oncoming nurse) Tavares UGALDE (offgoing nurse). Report included the [facility] information SBAR,Kardex, Procedure Summary, Intake/Output, MAR and Recent R esults. Name Value Range Interpretation Code Description Data [facility] rce(s) Supporting Document(s ) ID Date Data Source [id number] 10/30/2019 06:40:05 AM EDT [facility] Pt. AOX3, periodic confusion. Commode an d urinal at bedside. Seizure and fallprecaution measures in place. Voice s no complaint during shift . Name Value Range Interpretation Code Description Data [facility] rce(s) Supporting Document(s ) ID Date Data Source [id number] 10/30/2019 07:29:12 AM EDT [facility] Name Value Range Interpretation Description Data Sup porting Code Source(s) Document(s ) Sodium 139 136-145 [facility] [Moles/volume] mmol/L [facility] in Serum or Hospital Plasma Potassium 3.6 3.5-5.1 [facility] - Good [Moles/volume] mmol/L [facility] in Serum or Hospital Plasma Chloride 110 98-107 Above high normal [facility] [Moles/volume] mmol/L [facility] in Serum or Hospital Plasma Carbon 24 21-32 [facility] dioxide, total mmol/L [facility] [Moles/volume] Hospital in Serum or Plasma Anion gap in 9 mmol/L 10-20 Below low normal [facility] - Go od Serum or [facility] Plasma Hospital Glucose 96 mg/dL 74-106 [facility] [Mass/volume] [facility] in Serum or Hospital Plasma Urea nitrogen 10 mg/dL 7-18 [facility] [Mass/volume] [facility] in Serum or Hospital Plasma Creatinine 0.81 0.70-1.3 [facility] [Mass/volume] mg/dL 0 [facility] in Serum or Hospital Plasma Glomerular >60 [facility] - Good filtration [facility] rate/1.73 sq M Hospital predicted among blacks [Volume Rate/Area] in Serum or Plasma by Creatinine-bas ed formula (MDRD) Glomerular >60 [facility] - Good filtration [facility] rate/1.73 sq M Hospital predicted among non-blacks [Volume Rate/Area] in Serum or Plasma by Creatinine-bas ed formula (MDRD) Calcium 8.2 8.5-10.1 Below low normal [facility] [Mass/volume] mg/dL [facility] in Serum or Hospital Plasma ID Date Data Source [id number] 10/30/2019 07:05:07 AM EDT [facility] Name Value Range Interpretation Description Data Sup porting Code Source(s) Document(s ) Leukocytes 4.8 K/uL 4.8-10.6 [facility] - [#/volume] in Good Blood by [facility] Automated count [facility] Erythrocytes 4.59 4.70-6.0 Below low normal [facility] - [#/volume] in M/uL 0 Good Blood by [facility] Automated count [facility] Hemoglobin 14.0 14.0-18. [facility] - [Mass/volume] in g/dL 0 Good Blood [facility] Hematocrit 42.7 % 42.0-52. [facility] - [Volume 0 Good Fraction] of [facility] Blood by Hospital Automated count Erythrocyte mean 93.0 FL 81.0-94. [facility] - corpuscular 0 Good volume [Entitic [facility] volume] by Hospital Automated count Erythrocyte mean 30.5 PG 27.0-35. [facility] - corpuscular 0 Good hemoglobin [facility] [Entitic mass] Hospital by Automated count Erythrocyte mean 32.8 30.7-37. [facility] - corpuscular g/dL 3 Good hemoglobin [facility] concentration Hospital [Mass/volume] by Automated count Erythrocyte 13.3 % 11.5-14. [facility] - distribution 0 Good width [Ratio] by [facility] Automated count Hospital Platelets 159 K/uL 130-400 [facility] - [#/volume] in Good Blood by [facility] Automated count Hospital Platelet mean 8.6 FL 9.2-11.8 Below low normal [facility] - volume [Entitic Good volume] in Blood [facility] by Automated Hospital count Nucleated 0.0 PER 0 [facility] - erythrocytes/100 100 WBC Good leukocytes [facility] [Ratio] in Blood Hospital Nucleated 0.00 0.0-0.01 [facility] - erythrocytes K/uL Good [#/volume] in [facility] Segmented 54 % 48.0-72. [facility] - neutrophils/100 0 Good leukocytes in [facility] Lymphocytes/100 32 % 18.0-40. [facility] - leukocytes in 0 [facility] Blood [facility] Monocytes/100 9 % 2.0-12.0 [facility] - leukocytes in [facility] Eosinophils/100 5 % 0.0-7.0 [facility] - leukocytes in [facility] Blood [facility] Basophils/100 1 % 0.0-3.0 [facility] - leukocytes in [facility] Immature 0 % 0-0.5 [facility] - granulocytes/100 Good leukocytes in [facility] Blood by Hospital Automated count Segmented 2.6 K/UL 2.3-7.6 [facility] - neutrophils Good [#/volume] in [facility] Lymphocytes 1.5 K/UL 0.9-4.2 [facility] - [#/volume] in [facility] Blood [facility] Monocytes 0.4 K/UL 0.1-1.7 [facility] - [#/volume] in [facility] Blood [facility] Eosinophils 0.2 K/UL 0.0-1.0 [facility] - [#/volume] in [facility] Blood [facility] Basophils 0.0 K/UL 0.0-0.4 [facility] - [#/volume] in [facility] Blood [facility] Immature 0.0 K/UL 0.0-0.17 [facility] - granulocytes Good [#/volume] in [facility] Blood [facility] Automated count Differential [facility] - cell count Good method - [facility] ID Date Data Source [id number] 10/29/2019 07:40:21 PM EDT [facility] Verbal shift change report given to Wai rogers RN(oncoming nurse) by Elizabeth Meehan RN (offgoing nurse). Report included the fo llowing information SBAR, Kardex, EDSummary, Intake/Output, MAR and Recent Results. Name Value Range Interpretation Code Description Data Melani rce(s) Supporting Document(s ) ID Date Data Source [id number] 10/30/2019 06:54:22 PM EDT [facility] Name Value Range Interpretation Description Data Sup porting Code Source(s) Document(s ) Color of Urine YEL [facility] - [facility] Appearance of CLEAR [facility] - Urine [facility] Specific gravity 1.015 1.003-1. [facility] - of Urine by 030 Good Refractometry [facility] pH of Urine by 6.0 4.6-8.0 [facility] - Test strip [facility] Protein NEG [facility] - [Mass/volume] in Good Urine by Test [facility] Glucose NEG [facility] - [Mass/volume] in Good Urine by [facility] Automated test [facility] strip Ketones NEG [facility] - [Presence] in Good Urine by [facility] Automated test [facility] strip Bilirubin.total NEG [facility] - [Presence] in Good Urine [facility] Hemoglobin NEG [facility] - [Presence] in Good Urine by [facility] Urobilinogen 1.0 0.2-1.0 [facility] - [Presence] in EU/dL Good Urine by [facility] Automated test [facility] strip Nitrite NEG [facility] - [Presence] in Good Urine by [facility] Automated test Hospital strip Leukocyte NEG [facility] - esterase [facility] [Presence] in [facility] Urine by [facility] Automated test strip ID Date Data Source [id number] 10/29/2019 06:14:12 PM EDT [facility] Spoke with to clarify meds..correct doses obtained Name Value Range Interpretation Code Description Data Melani rce(s) Supporting Document(s ) ID Date Data Source [id number] 10/29/2019 06:01:22 PM EDT [facility] Pt unsure of dose of Vraylar will call w berta Name Value Range Interpretation Code Description Data Melani rce(s) Supporting Document(s ) ID Date Data Source [id number] 10/29/2019 03:56:40 PM EDT [facility] [id number] [facility] 4 [place] MED SURG [address] [facility] [address] [phone]/12/12 Maxwell Bray (Male) [id number] ES I 2 ED Dispo:ADMIT Chief Complaint: Dysarthria, Lethargy Diagnosis: Altered mental status, unspecified altered mental statu s type [] Bipolar disorder with severe depression (HCC) [] Current Providers: Att ending: Cole Ernandez; Cristi Canas Consulting Provider: Cristi Canas Primary Nurse: Kristy Moss Tech: HERMANN GonzalesN: [id number] [employer] [phone] - Bs [facility] [employer] [facility] MrnMRN: [id number] [employer] [phone] - [facility] Age Sex 1970 AGE 49 SEX Male Primary Care Provider: Ritika Canas MD Konmgxrww: (No Kn own Allergies)Date Reviewed: 10/29/2019Reviewed by: Ritika Canas MD - Review CompleteED Provider Notes: All no tesHNO ID: [id number]: Cristobal Ernandez MDService: -Author Type: PhysicianFiled: 10/29/19 [...] of morbidity or mortality cardiac cath at [facility] approx 6-8 months ago Other unknown [...] week Gets together: Once a week Attends mosque service: More than 4 times per year [...] QTC Calculation (Bezet) 446 ms Calculated P [place] 53 degrees Calc ulated R [place] 68 degrees Calculated T [place] 0 degrees Diagnosis Sinus tachycardiaProlonged IN intervalNo nspecific intraventricular conduction delayCBC WITH AUTOMATED [...] Time: 10/29/19 10:45 AMResult Value Ref Range [place] level <0.20 (L) 0.6 - 1.2 MMOL/L [...] contrast. Sagittal and coronalreconstruction was performed. Utilizing taping supervisor algorithm theexaminationwas performed to optimize imaging quality [...] status, unspecified altered menta l status type R41.44247.97Patient condition at time of disposition: StableI have [...] d thediagnostic studies, unless otherwise noted.+ED Orders [id number] CBC WITH AUTOMATED DIFF [# [id number]] Priority: STAT Class: ER Collect Standing Order Information Remaining Occurrences:0 Interval:ONE TIME Last released:10/29/2019 Released orders: SunOctober 29, 2019 11:02 AM by: CRISTOBAL ERNANDEZ [id number] METABOLIC PANEL, COMPREHENSIVE [#[id number]] Bridgette ority: STAT Class: ER Collect Standing Order Information Remaining Occurrences:0/1 Inter haile:ONE TIME Last released:10/29/2019 Released orders: SunOctober 29, 2019 11:02 AM by: CRISTOBAL WADE [id number] PROTHROMBIN TIME + INR [#[id number]] Priority: STAT Class: E R Collect Standing Order Information Remaining Occurrences:0/1 Interval:ONE TI ME Last released:10/29/2019 Released orders: SunOctober 29, 2019 11:02 AM by: BRIE ERNANDEZ EN [id number] PTT [#[id number]] Priority: STAT Class: ER Collect Speci men Source: Blood Standing Order Information Remaining Occurrences:0/1 Interval:ONE TI ME Last released:10/29/2019 Released orders: SunOctober 29, 2019 11:02 AM by: BRIE ERNANDEZ [id number] URINALYSIS W/ RFLX MICROSCOPIC [#[id number]] Priority: STAT Class: ER Collect Sta nding Order Information Remaining Occurrences:0/1 Interval:ONE TIME Last released:0 10/29/2019 Released orders: SunOctober 29, 2019 11:02 AM by: CRISTOBAL ERNANDEZ [id number] LITHIUM [#[id number]] Priority: STAT Class: ER Collect Standing Order Information Remaining Occurrences:0/1 Interval:ONE TIME Last released:10/29/2019 Released orders : SunOctober 29, 2019 11:02 AM by: CRISTOBAL ERNANDEZ [id number] CBC WITH AUTOMATED DIFF [# [id number]] Priority: STAT Class: ER Collect Specimen Source: Whole Blood Specimen Collected: 020 10:45 AM Resulting Agency: [facility] Test ID: [id number] Released on: 0 11:02 AM [id number] METABOLIC PANEL, COMPREHENSIVE [#[id number]] Priority: STAT Class: E R Collect Specimen Source: Plasma Specimen Collected: 10/29/2019 10:45 AM Resulting Agency: [facility] Test ID: MPL Released on: 10/29/2019 11:02 AM [id number] PROTHROMBIN TIME + IN R [#[id number]] Priority: STAT Class: ER Collect Specimen Source: Plasma Specimen Collec hyun: 10/29/2019 10:45 AM Resulting Agency: [facility] Test ID: APTHR Released o n: 10/29/2019 11:02 AM [id number] PTT [#[id number]] Priority: STAT Class: ER Collect Specimen Source: Plasma Specimen Collected: 10/29/2019 10:45 AM Resulting Agency: [facility] Test ID: APTT Released on: 10/29/2019 11:02 AM [id number] URINALYSIS W/ RFLX ME CROSCOPIC [#[id number]] Priority: STAT Class: ER Collect Resulting Agency: [facility] Test ID: UA Released on: 10/29/2019 11:02 AM [id number] LITHIUM [#[id number]] Priority: STAT Class: ER Collect Specimen Source: Serum Specimen Collected: 10/28 10:45 AM Resulting Agency: [facility] Test ID: LI Released on: 10/29/2019 11:02 AM [id number] CBC WITH AUTOMATED DIFF [#[id number]] Priority: STAT Class: E R Collect Standing Order Information Remaining Occurrences:1 Interval:TOMORR OW AM [id number] METABOLIC PANEL, BASIC [#[id number]] Priority: STAT Class: ER Collect St anding Order Information Remaining Occurrences:11 Interval:TOMORROW AM [id number] CT HEAD W O CONT [#[id number]] Priority: Routine Class: Hospital Performed Standing Or mariano Information Remaining Occurrences:0/1 Interval:ONE TIME Last released:10/29/2019 Released orders: SunOctober 29, 2019 11:02 AM by: CRISTOBAL ERNANDEZ Reason for Exam -> ams IMG 2590 XR CHEST PORT [#[id number]] Priority: STAT Class: Hospital Performe d Standing Order Information Remaining Occurrences:0/1 Interval:ONE TIME Last release d:10/29/2019 Released orders: SunOctober 29, 2019 11:02 AM by: CRISTOBAL ERNANDEZ Reason for Exam -> ams [id number] CT HEAD WO CONT [#[id number]] Priority: STAT Class: Hospital Perfo rmed Specimen Collected: 10/29/2019 11:54 AM Resulting Agency: [facility] Test ID: [id number] [place] son for Exam -> ams Released on: 10/29/2019 11:02 AM [id number] XR CHEST PORT [#[id number]] Priority: STAT Class: Hospital Performed Specimen Collected: 10/29/2019 12:16 PM Resultin g Agency: [facility] Test ID: [id number] Reason for Exam -> ams Released on: 10/29/2019 11:02 AM [id number] EKG, 12 LEAD, INITIAL [#[id number]] Priority: STAT Class: Hospital Performe d Standing Order Information Remaining Occurrences:0/1 Interval:ONE TIME Last release d:10/29/2019 Released orders: SunOctober 29, 2019 11:02 AM by: CRISTOBAL ERNANDEZ Reason for Exam : -> chest pain [id number] EKG, 12 LEAD, INITIAL [#[id number]] Priority: STAT Class: H ospital Performed Resulting Agency: [facility] Test ID: [id number] Reason for Exam: -> chest pain Releas ed on: 10/29/2019 11:02 AM [id number] POC GLUCOSE [#[id number]] Priority: STAT Cl ass: Hospital Performed Standing Order Information Remaining Occurrences:0/1 Interval:ONE TI ME Last released:10/29/2019 Released orders: SunOctober 29, 2019 11:02 AM by: BRIE ERNANDEZ EN [id number] POC GLUCOSE [#[id number]] Priority: STAT Class: Hospital Performe d Released on: 10/29/2019 11:02 AM [id number] VITAL SIGNS PER UNIT ROUTINE [#[id number]] Priorit y: STAT Class: Hospital Performed Standing Order Information Remaining Occurrences:0/1 Inte rval:CONTINUOUS Last released:10/29/2019 Released orders: SunOctober 29, 2019 2:54 PM by: RITIKA CANAS Comment:More frequently if Indicated. [id number] BEDREST, COMPLETE [#[id number]] Priority: STAT Class: Hospital Performed Standing Order Information Remainin g Occurrences:0/1 Interval:CONTINUOUS Last released:10/29/2019 Released orders : SunOctober 29, 2019 2:54 PM by: RITIKA CANAS [id number] NOTIFY PROVIDER: VITAL SIGNS CHANGES [# [id number]] Priority: STAT Class: Hospital Performed Standing Order Information Remaining Occurre nces:0/1 Interval:CONTINUOUS Last released:10/29/2019 Released orders : SunOctober 29, 2019 2:54 PM by: CANAS, RITIKA Temp -> Greater than 101 F HR -> Greater th an 120 Beats Per Minute or Less than 60 Beats Per Minute RR -> Greater than 30 per minute or Less than 8 per minute SBP -> Greater than 180 mm Hg or Less than 90 mm Hg O2 Sat -> Less than 90% UO -> Less than 120 ml in 4 hours [id number] APPLY/MAINTAIN SEQUENTIAL COMPRESSIO* [#[id number]] Priority: ST AT Class: Hospital Performed Standing Order Information Remaining Occurrences:0 Inter haile:CONTINUOUS Last released:10/29/2019 Released orders: SunOctober 29, 2019 2:54 PM by: RITIKA CANAS [id number] VITAL SIGNS PER UNIT ROUTINE [#[id number]] Priority: STAT Class: H ospital Performed Comment:More frequently if Indicated. Released on: 10/29/2019 2:54 PM [id number] BEDREST, COMPLETE [#[id number]] Priority: STAT Class: Hospital Performed Relea sed on: 10/29/2019 2:54 PM [id number] NOTIFY PROVIDER: VITAL SIGNS CHANGES [#[id number]] Priority: STAT Class: Hospital Performed Temp -> [...] carmen rs Released on: 10/29/2019 2:54 PM [id number] APPLY/MAINTAIN SEQUENTIAL COMPRESSIO* [#[id number]] P riority: STAT Class: Hospital Performed Released on: 10/29/2019 2:54 PM SODIUM CHLORIDE 0.9 % IJ SYRG [#[id number]] Priority: STAT Class: Normal SODIUM CHLORIDE 0.9 % IJ SYRG [#[id number]] Priority: STAT Class: Normal ACETAMINOPHEN 325 MG TABLET [# [id number]] Priority: STAT Class: Normal ENOXAPARIN 40 MG/0.4 ML SUB-Q SYRINGE [#[id number]] Priority: STAT Class: Normal SODIUM CHLORIDE 0.9 % IV [#[id number]] Priority: STAT Class: Normal [id number] GLUCOSE, POC [#[id number]] Priority: Routine Class : ER Collect Resulting Agency: [facility] Test ID: BGG Standing Order Informati on Remaining Occurrences:0/1 Released orders: SunOctober 29, 2019 11:26 AM by: Chi Garcia [facility] Process [id number] GLUCOSE, POC [#[id number]] Priority: Routine Class : ER Collect Specimen Source: Whole Blood Specimen Collected: 10/29/2019 11:26 AM Resulting Agency: Cristi [facility] Test ID: BGG Released on: 10/29/2019 11:26 AM [id number] IP CONSULT TO PRIMARY CARE PROVIDER [#[id number]] Priority: STAT Class: Hospital Performed Standing Order Inf ormation Remaining Occurrences:0/1 Interval:ONE TIME Last released:10/29/2019 Relea sed orders: SunOctober 29, 2019 12:59 PM by: CRISTOBAL ERNANDEZ Reason for Consult: -> admit Did you call or speak to the consulting provider? -> No Consult To -> dr canas [id number] IP CONSULT TO PRIMAR CARE PROVIDER [#[id number]] Priority: STAT Class: Hospital Performed Reason for Consult: -> ad rei Did you call or speak to the consulting provider? -> No Consult To -> dr canas Released on: 12:59 PM CON53 IP CONSULT TO PSYCHIATRY [#[id number]] Priority: STAT Class: H ospital Performed Standing [...] -> TODAY CON53 IP CONSULT TO PSYCHIATRY [#[id number]] Priority: STAT Class: Hospital Performed Reason for Consult: -> 49 yo male with severe bipolar diseas e, admitted with slurred speech, severe weakness Did you call or speak to t he consulting provider? -> No Consult To -> Dr Aguirre Schedule When? -> TODAY Released on: 10/29/2019 2:54 PM [id number] INITIAL PHYSICIAN ORDER: INPATIENT [#[id number]] Priority: Routine Class : ADT Pend Transfer [...] CANAS Estimated Length of Stay -> 3-4 [facility] Discharge Plan: -> Home with Office Follow-up [id number] INITIAL PHYSICIAN ORDER: INPATIENT [# [id number]] Priority: Routine Class: ADT Pend Transfer Status: [...] Foll ow-up Released on: 10/29/2019 2:43 PM [id number] INITIAL PHYSICIAN ORDER: INPATIENT [#[id number]] Priority: Routine Class: ADT Pend Transfer Standing Order Information Remaining Occurrences:0 Interval:ONE TIME Last released:10/29/2019 Released orders: SunOctober 29, 2019 2:54 PM by: RITIKA CANAS Status: -> INPATIENT Inpatient Hospitalization Certified Neckey gomes for the Following Reasons -> 3- [...] 3-4 Midnights Discharge Plan: -> Other (Specify) [id number] INITIAL PHYSIC JOSE ORDER: INPATIENT [#[id number]] Priority: Routine Class: ADT Pend Transfer Status: [...] 2:54 PM IVT3 INSERT PERIPHERAL IV [# [id number]] Priority: STAT Class: Hospital Performed Standing Order Information Remaining Occurre nces:0/1 Interval:ONE TIME Last released:10/29/2019 Released orders: SunOctober 28 2:54 PM by: RITIKA CANAS IVT3 INSERT PERIPHERAL IV [#[id number]] Priority: ST AT Class: Hospital Performed Released on: 10/29/2019 2:54 PM CON75 IP CONSULT TO PHYSICAL THERAPY [#[id number]] Priority: STAT Class: Hospital Performed Standing Order Information Remainin g Occurrences:14/15 Interval:DAILY Last released:10/29/2019 Released orders : SunOctober 29, 2019 2:54 PM by: RITIKA CANAS CON75 IP CONSULT TO PHYSICAL THERAPY [#[id number]] Priority: STAT Class: Hospital Performed Released on: 10/29/2019 2:54 PM COD2 FULL CODE [#[id number]] Priority: STAT Class: Hospital Performed Standing Order Inf ormation Remaining Occurrences:0/1 Interval:CONTINUOUS Last released:10/29/2019 Rel eased orders: SunOctober 29, 2019 2:54 PM by: RITIKA CANAS COD2 FULL CODE [#[id number]] Priority: STAT Class: Hospital Performed Released on: 10/29/2019 2:54 PM DIET10 4 DIET FULL LIQUID [#[id number]] Priority: STAT Class: Hospital Performed Stand ing Order Information Remaining Occurrences:0/1 Interval:DIET EFFECTIVE NOW Last released:10/29/2019 Released orders: SunOctober 29, 2019 2:54 PM by: RITIKA CANAS Comment:A dvance as tolerated to regular diet [id number] DIET FULL LIQUID [#[id number]] Priority: STAT Class: Hospital Performed Comment:Advance as tolerated to regular diet Released on: 10/29/2019 2:54 Maxwell Corona MR#: [id number] * Rm: 416-02Ht: 5' 7" Wt: 3 00 lb Code: Full Code Iso:Diagnosis:Bipolar disorder with severe depression (HCC) [F31.4]Allergies : No Known Allergies -------- Current as of: 10/29/19 1556 ---aspirin (ASPIRIN) tablet 325 mg #[id number] Admin Amount: 1 Tab (1 x 325 mg Tab) Ordered Dose: 325 mg Route: Oral Freq: ONCE Start Date: 12/24/13 No administration times (back 96 hours, ahead 96 hours). ------diphenhydrAMINE (BENADRYL) capsule 50 mg #[id number] Admin Amount: 1 Cap (1 x 50 mg Cap) Ordered Dose: 50 mg Ro belkofski: Oral Freq: NOW Start Date: 12/24/13 No administration times (back 96 hours, e ad 96 hours). ------diazepam (VALIUM) tablet 5 mg #[id number] Admin Amount: 1 Tab (1 x 5 mg Tab) Ordered Dose: 5 mg Route: Ora l Freq: ONCE Start Date: 12/24/13 No administration times (back 96 hours, e ad 96 hours). ------lidocaine (XYLOCAINE) 10 mg/mL (1 %) injection 1-30 mL #[id number] Admin Amount: 1-30 mL Ordered Dose: 1-30 mL Route: IntraDERMal Freq: ONC E Start Date: 12/24/13 No administration times (back 96 hours, ahead 96 hours). ------heparin (PF) 2 units/ml in NS infusion 2,000 Units #[id number] Admin Amount: 1,000 mL = 2,000 Units of 2 Units/mL Ordered Dose: 1,000 mL Route: Irrigation Freq: ONCE Start Date: 12/24/13 No administration times (b ack 96 hours, ahead 96 hours). ------heparinized saline 2 units/mL infusion 1,000 Units #[id number] Admin Amount: 500 mL = 1,000 Units of 2 Units/mL Ordered Dose: 500 mL R oute: IntraarTERial Freq: ONCE Start Date: 12/24/13 No administration times (back 96 hours, ahead 96 hours). ------0.9% sodium chloride infusion #[id number] Ordered Dose: 75 mL/hr Route: IntraVENous Freq: CONTINUOUS Start Date: 12/24/13 Rate: 75 mL/hr Duration: No administration times (back 96 hours, ahead 96 hours). ------ioversol (OPTIRAY) 320 mg iodine/mL contrast injection 1-100 mL #[id number] Admin Amount: 1-100 mL Ordered Dose: 1-100 mL Route: IntraVENous Freq: RAD ONCE Start Date: 12/24/13 No administration times (back 96 hours, ahead 96 hours).Maxwell Bray MR#: [id number] * Rm: [id number]: 5' 7" Wt: 300 lb Code: Full Code Iso:Diagnosis:Bipolar disorder with severe depression (HCC) [F31.4]Allergies: No Kn own Allergies -------- Current as of: 10/29/19 1556 ---gadobutrol (GADAVIST) contrast solution 1-10 mL #[id number] Admin Amount: 1-10 mL Ordered Dose: 1-10 mL Route: IntraVENo us Freq: RAD ONCE Start Date: 01/13/14 No administration times (back 96 hours, ahe ad 96 hours). ------sodium chloride (NS) flush 5-10 mL #[id number] Admin Amount: 5-10 mL Ordered Dose: 5-10 mL Route: IntraVENous Freq: RA D ONCE Start Date: 01/13/14 No administration times (back 96 hours, ahead 96 hours). ------sodium chloride (NS) 0.9 % flush #[id number] Ordered Dose: Route: Freq: Start D ate: 01/13/14 No administration times (back 96 hours, ahead 96 hours). ------morphine injection 2 mg #[id number] Admin Amount: 1 mL = 2 mg of 2 mg/mL Ordered Dose: 2 mg Route: Int raVENous Freq: NOW Start Date: 03/13/15 No administration times (back 96 hours, ahe ad 96 hours). ------influenza vaccine (4 yr+)(PF) (FLUCELVAX QUAD) inj ection 0.5*#[id number] Admin Amount: 0.5 mL Ordered Dose: 0.5 mL Route: IntraMUSCular Freq : PRIOR TO DISCHARGE Start Date: 03/30/16 No administration times (back 96 hours, ahead 96 hours). ------oxyCODONE-acetaminophe n (PERCOCET) 5-325 mg per tablet 1 Tab #[id number] Admin Amount: 1 Tab Ordered Dose: 1 Tab Route: Oral Freq: NOW Start Date: 09/07/17 No administration times (back 96 hours, ahead 96 hours). ------barium sulfate (READICAT) 2.1 % (w/v), 2.0 % (w /w) oral suspension 9*#[id number] Admin Amount: 900 mL Ordered Dose: 900 mL Route: Ora l Freq: RAD ONCE Start Date: 10/15/17 No administration times (back 96 hours, ahe ad 96 hours). ------iopamidol (ISOVUE 300) 61 % contrast injection 100 mL #[id number] Admin Amount: 100 mL Ordered Dose: 100 mL Route: IntraVENous Freq: RAD O NCE Start Date: 10/15/17 No administration times (back 96 hours, ahead 96 hours).Maxwell Bray MR#: [id number] * Rm: [id number]: 5' 7" Wt: 300 lb Cod e: Full Code Iso:Diagnosis:Bipolar disorder with severe depression ([facility]) [F31.4]Allergies: No Kn own Allergies -------- Current as of: 10/29/19 1556 ---risperiDONE (RisperDAL m-tabs) disintegrating tablet 1 mg #[id number] Admin Amount: 1 Tab (1 x 1 mg Tab) Ordered Dose: 1 mg Ro belkofski: Oral Freq: ONCE Start Date: 12/24/17 No administration times (back 96 hours, [facility] ad 96 hours). ------ALPRAZolam (XANAX) tablet 2 mg #[id number] Admin Amount: 4 Tab (4 x 0.5 mg Tab) Ordered Dose: 2 mg Route: Ora l Freq: NOW Start Date: 12/24/17 No administration times (back 96 hours, e ad 96 hours). ------lamoTRIgine (LaMICtal) tablet 100 mg #[id number] Admin Amount: 1 Tab (1 x 100 mg Tab) Ordered Dose: 100 mg Route: Ora l Freq: ONCE Start Date: 12/24/17 No administration times (back 96 hours, e ad 96 hours). ------OLANZapine (ZyPREXA zydis) disintegrating tablet 5 mg #[id number] Admin Amount: 1 Tab (1 x 5 mg Tab) Ordered Dose: 5 mg Route: Ora l Freq: ONCE Start Date: 12/25/17 No administration times (back 96 hours, e ad 96 hours). ------LORazepam (ATIVAN) tablet 2 mg #[id number] Admin Amount: 4 Tab (4 x 0.5 mg Tab) Ordered Dose: 2 mg Route: Ora l Freq: NOW Start Date: 12/25/17 No administration times (back 96 hours, ahe ad 96 hours). ------LORazepam (ATIVAN) injection 1 mg #[id number] Admin Amount: 0.5 mL = 1 mg of 2 mg/mL Ordered Dose: 1 mg Ro belkofski: IntraVENous Freq: NOW Start Date: 12/25/17 No administration times (back 96 hours, ahead 96 hours). ------barium sulfate (EZ PAQUE) 96 % (w/w) contrast suspension 17 6 g #[id number] Admin Amount: 176 g Ordered Dose: 176 g Route: Oral Freq: RAD ONCE Start Date: 08/02/18 No administration times (back 96 hours, ahead 96 hours). ------barium sulfate (EZ PAQUE) 96 % (w/w) contrast suspension 17 6 g #[id number] Admin Amount: 176 g Ordered Dose: 176 g Route: Oral Freq: RAD ONCE Start Date: 08/02/18 No administration times (back 96 hours, ahead 96 hours).Maxwell Bray MR#: [id number] * Rm: 416-02Ht: 5' 7" Wt: 300 lb Code: Full Co de Iso:Diagnosis:Bipolar disorder with severe depression ([facility]) [F31.4]Allergies: No Known Allergies -------- Current as of: 10/29/19 1556 ---aspirin chewable tablet 162 mg #[id number] Admin Amount: 2 Tab (2 x 81 mg Tab) Ordered Dose: 162 mg Route: Ora l Freq: NOW Start Date: 08/10/19 No administration times (back 96 hours, ahe ad 96 hours). ------0.9% sodium chloride infusion 1,000 mL #[id number] Admin Amount: 1,000 mL Ordered Dose: 1,000 mL Route: IntraVENous Freq: O NCE Start Date: 08/16/19 Rate: 1,000 mL/hr Duration: No administratio n times (back 96 hours, ahead 96 hours). ------methylPREDNISolone (PF) (Solu-MEDROL) injection 125 mg #[id number] Admin Amount: 2 mL = 125 mg of 125 mg/2 mL Ordered Dose: 125 mg Ro belkofski: IntraVENous Freq: NOW Start Date: 08/16/19 No administration times (back 9 6 hours, ahead 96 hours). ------aspirin chewable tablet 162 mg #[id number] Admin Amount: 2 Tab (2 x 81 mg Tab) Ordered Dose: 162 mg Route: Ora l Freq: NOW Start Date: 08/16/19 No administration times (back 96 hours, e ad 96 hours). ------sodium chloride (NS) flush 5-40 mL #[id number] Admin Amount: 5-40 mL Ordered Dose: 5-40 mL Route: IntraVENous Freq: EV AN 8 HOURS Start Date: 10/29/19 Administration times (back 96 hours, ahead 96 hours): : 1400 2200 10/30/19: 0600 1400 2200 10/31/19: 0600 1400 2200 11/01/19: 06 1400 2200 11/02/19: 599 1400 ---sodium chloride (NS) flush 5-40 mL #[id number] Admin Amount: 5-40 mL Ordered Dose: 5-40 mL Route: IntraVENous Freq: NEEDED Start Date: 10/29/19 No administration times (back 96 hours, ahead 96 hours). ------acetaminophen (TYLENOL) tablet 650 mg #[id number] Admin Amount: 2 Tab (2 x 325 mg Tab) Ordered Dose: 650 mg Ro belkofski: Oral Freq: EVERY 4 HOURS NEEDED Start Date: 10/29/19 No administration times (back 96 hours, ahe ad 96 hours).Maxwell Bray MR#: [id number] * Rm: [id number]: 5' 7" Wt: 3 00 lb Code: Full Code Iso:Diagnosis:Bipolar disorder with severe depression ([facility]) [F31.4]Allergies : No Known Allergies -------- Current as of: 10/29/19 1556 ---enoxaparin (LOVENOX) injection 40 mg #[id number] Admin Amount: 0.4 mL = 40 mg of 40 mg/0.4 mL Ordered Dose: 40 mg Route: SubCUTAneous Freq: EVERY 24 HOURS Start Date: 10/29/19 Administration times (back 96 hours, ahead 96 hours): 10/29/19: 14510/30/19: 14510/31/19: 145411/01/19: 145411/02/19 : 1454 ---0.9% sodium chloride infusion #[id number] Ordered Dose: 100 mL/hr Route: IntraVENous Freq: [...] Supporting Document(s ) ID Date Data Source [id number] 10/29/2019 03:54:13 PM EDT [facility] History & PhysicalBrian F Asa is a [age] y.o. male who [...] of morbidity or mortality cardiac cath at [facility] approx 6-8 months ag o Other [...] week Gets together: Once a week Attends mosque service: More than 4 times per year [...] trast. Sagittal and coronal reconstruction was performed.Utilizing taping supervisor alg orithm the examination was performed to [...] QTC Calculation (Bezet) 446 ms Calculated P [place] 53 degrees Calculat ed R [place] 68 degrees Calculated T [place] 0 degrees Diagnosis Sinus tachycardiaProl onged IN intervalNonspecific intraventricular conduction delayCBC WITH AUTOMATED DIFF [...] lydia: 10/29/19 10:45 AMResult Value Ref Range [place] level <0.20 (L) 0.6 - 1.2 MMOL/L GLUCOSE, POC Collection Time: 10/29/19 11:26 AMResult Value Ref Range Glucose, bedsid e 102 65 - 110 MG/DLAll lab results for the last 24 hours reviewed.Assessment/PlanAc tive Problems: Bipolar disorder with severe depression (HCC) (10/29/2019) possible [place] dvertentoverdoseGeorge MD Corey Name Value Range Interpretation Code Description Data Melani rce(s) Supporting Document(s ) ID Date Data Source [id number] 10/29/2019 03:42:10 PM EDT [facility] [...] Supporting Document(s ) ID Date Data Source [id number] 10/29/2019 02:28:59 PM EDT [facility] [...] morbidity or mortal ity cardiac cath at [facility] approx 6-8 months ago Other unknown [...] week Gets together: Once a week Attends mosque service: More than 4 times per year [...] QTC Calculation (Bezet) 446 ms Calculated P [place] 53 degr ees Calculated R [place] 68 degrees Calculated T [place] 0 degrees Diagnosis Sinus tachycar diaProlonged IN intervalNonspecific intraventricular conduction delayCBC WIT H AUTOMATED [...] lydia: 10/29/19 10:45 AMResult Value Ref Range [place] level <0.20 (L) 0.6 - 1.2 MMOL/L GLUCOSE, POC Collection Time: 10/29/19 11:26 AMResult Value Ref Range Glucose, bedsid e 102 65 - 110 MG/DLEKG: Sinus tachycardia at a rate of [address] or T wave fuentes es.Interpreted by Cristobal Ernandez, MDRadiology:CXR RESULTS:CXR Results (La st 48 hours) [...] Sagittal and coronalreconstru ction was performed. Utilizing taping supervisor algorithm the examinationwas performed t o optimize [...] Canas (PMD) who agreedto admit the patient. Vlaerio cantrell was reassessed prior to disposition. Discussedresults, diagnosis and treatmen t plan. Patient's questions were answered.Patient agrees with plan to adm it.COVID-19 suspected. Droplet precautions were taken.The patient had a surgical ma sk on upon entering the room: yesProvider PPE donned, including:Surgical mask: yesN95 mask: yesEye Protection: yesGloves: yesGown: yesPatient was seen during Cov-19 pand emic which may have affected standard [...] daily. Other, Ailyn Miller Stephen, MD I, Robi Abdi, [...] Supporting Document(s ) ID Date Data Source [id number] 10/29/2019 12:17:28 PM EDT [facility] XR CHEST PORTCLINICAL INDICATION PROVIDE D:. [...] Supporting Document(s ) ID Date Data Source [id number] 10/29/2019 11:55:57 AM EDT [facility] CT HEAD WO CONTClinical data: amsPriors: 03/13/2015.Technique: Multiple axial images were obtained from the skullbase to the vertexwithout administration of intravenous contrast. Sagittal and coronalreconstru ction was performed. Utilizing taping supervisor algorithm the examinationwas performed t o optimize [...] Supporting Document(s ) ID Date Data Source [id number] 10/29/2019 11:48:34 AM EDT [facility] Name Value Range Interpretation Description Data Sup porting Code Source(s) Document(s ) Glucose 102 MG/DL 65-110 [facility] [Mass/volume] [facility] in Blood by Hospital Automated test strip ID Date Data Source [id number] 10/29/2019 10:49:56 AM EDT [facility] Patient lethargic, BIBA from home for le thargy and slurred speech. Name Value Range Interpretation Code Description Data Melani rce(s) Supporting Document(s ) ID Date Data Source [id number] 10/29/2019 11:29:33 AM EDT [facility] Name Value Range Interpretation Code Description Data Supporting Source(s) Document(s ) [place] 0.6-1.2 Below low normal [facility] [Moles/volum [facility] e] in Serum Hospital or Plasma ID Date Data Source [id number] 10/29/2019 11:28:52 AM EDT [facility] Name Value Range Interpretation Description Data Sup porting Code Source(s) Document(s ) Sodium 136 136-145 [facility] [Moles/volume] mmol/L [facility] in Serum or Hospital Plasma Potassium 4.4 3.5-5.1 [facility] [Moles/volume] mmol/L [facility] in Serum or Hospital Plasma Chloride 106 98-107 [facility] [Moles/volume] mmol/L [facility] in Serum or Hospital Plasma Carbon 22 21-32 [facility] dioxide, total mmol/L [facility] [Moles/volume] Hospital in Serum or Plasma Anion gap in 12 10-20 [facility] Serum or mmol/L [facility] Plasma Hospital Glucose 108 74-106 Above high normal [facility] [Mass/volume] mg/dL [facility] in Serum or Hospital Plasma Urea nitrogen 16 mg/dL 7-18 [facility] [Mass/volume] [facility] in Serum or Hospital Plasma Creatinine 1.05 0.70-1.3 [facility] [Mass/volume] mg/dL 0 [facility] in Serum or Hospital Plasma Glomerular >60 [facility] filtration [facility] rate/1.73 sq M Hospital predicted among blacks [Volume Rate/Area] in Serum or Plasma by Creatinine-bas ed formula (MDRD) Glomerular >60 [facility] filtration [facility] rate/1.73 sq M Hospital predicted among non-blacks [Volume Rate/Area] in Serum or Plasma by Creatinine-bas ed formula (MDRD) (NOTE)Estimated GFR is calculated using the Modification of Diet in RenalDisease (MDRD) Study equation, reported for both Americans(GFRAA) and non- Americans (GFRNA), and normalized to 1.7 7w6svtt surface area. The physician must decide which [...] 8.5-10.1 [facility] Serum or Plasma [facility] ital Bilirubin.total 0.7 mg/dL 0.2-1.0 [facility] [Mass/volume] in Serum or [facility] Plasma Alanine aminotransferase 30 U/L 13-61 [facility] [Enzymatic activity/volume] [facility] in Serum or Plasma Aspartate aminotransferase 27 U/L 15-37 [facility] [Enzymatic activity/volume] [facility] in Serum or Plasma by With P-5'-P Alkaline phosphatase 139 U/L 45-117 Above high [facility] [Enzymatic activity/volume] normal [facility] in Serum or Plasma Protein [Mass/volume] in 7.6 g/dL 6.4-8.2 [facility] Serum or Plasma [facility] ital Albumin [Mass/volume] in 3.9 g/dL 3.5-4.7 [facility] Serum or Plasma by [facility] ospital Bromocresol purple (BCP) dye binding method Globulin [Mass/volume] in 3.7 g/dL 1.7-4.7 [facility] Serum by calculation [facility] Albumin/Globulin [Mass 1.0 0.7-2.8 [facility] Ratio] in Serum or Plasma [facility] ID Date Data Source [id number] 10/29/2019 11:20:29 AM EDT [facility] Name Value Range Interpretation Description Data Sup porting Code Source(s) Document(s ) aPTT in 22.2 SEC 21.0-28. [facility] Platelet poor 0 [facility] plasma by [facility] Coagulation assay Therapeutic Range = 42.0-60.0 secs ID Date Data Source [id number] 10/29/2019 11:20:29 AM EDT [facility] Name Value Range Interpretation Description Data Sup porting Code Source(s) Document(s ) Prothrombin 10.3 sec 9.4-11.1 [facility] time (PT) [facility] INR in 1.0 0.8-1.2 [facility] Platelet poor [facility] plasma by Hospital Coagulation assay ID Date Data Source [id number] 10/29/2019 11:11:49 AM EDT [facility] Name Value Range Interpretation Description Data Sup porting Code Source(s) Document(s ) Leukocytes 8.1 K/uL 4.8-10.6 [facility] - [#/volume] in Good Blood by [facility] Automated count Hospital Erythrocytes 5.52 4.70-6.0 [facility] - [#/volume] in M/uL 0 Good Blood by [facility] Hemoglobin 16.7 14.0-18. [facility] - [Mass/volume] in g/dL 0 [facility] Blood [facility] Hematocrit 51.8 % 42.0-52. [facility] - [Volume 0 Good Fraction] of [facility] Blood by Hospital Automated count Erythrocyte mean 93.8 FL 81.0-94. [facility] - corpuscular 0 Good volume [Entitic [facility] volume] by Hospital Automated count Erythrocyte mean 30.3 PG 27.0-35. [facility] - corpuscular 0 Good hemoglobin [facility] [Entitic mass] Hospital by Automated count Erythrocyte mean 32.2 30.7-37. [facility] - corpuscular g/dL 3 Good hemoglobin [facility] [Mass/volume] by Automated count Erythrocyte 13.2 % 11.5-14. [facility] - distribution 0 Good width [Ratio] by [facility] Automated count [facility] Platelets 193 K/uL 130-400 [facility] - [#/volume] in Good Blood by [facility] count [facility] Platelet mean 8.6 FL 9.2-11.8 Below low normal [facility] - volume [Entitic Good volume] in Blood [facility] by Automated Hospital count Nucleated 0.0 PER 0 [facility] - erythrocytes/100 100 WBC Good leukocytes [facility] [Ratio] in Blood [facility] Nucleated 0.00 0.0-0.01 [facility] - erythrocytes K/uL Good [#/volume] in [facility] Segmented 79 % 48.0-72. Above high normal [facility] - neutrophils/100 0 Good leukocytes in [facility] Lymphocytes/100 10 % 18.0-40. Below low normal [facility] - leukocytes in 0 [facility] Monocytes/100 8 % 2.0-12.0 [facility] - leukocytes in [facility] Eosinophils/100 1 % 0.0-7.0 [facility] - leukocytes in [facility] Basophils/100 0 % 0.0-3.0 [facility] - leukocytes in [facility] Immature 1 % 0-0.5 Above high normal [facility] - granulocytes/100 [facility] leukocytes in [facility] Automated count Segmented 6.4 K/UL 2.3-7.6 [facility] - neutrophils Good [#/volume] in [facility] Lymphocytes 0.8 K/UL 0.9-4.2 Below low normal [facility] - [#/volume] in [facility] Monocytes 0.7 K/UL 0.1-1.7 [facility] - [#/volume] in [facility] Eosinophils 0.1 K/UL 0.0-1.0 [facility] - [#/volume] in [facility] Basophils 0.0 K/UL 0.0-0.4 [facility] - [#/volume] in [facility] Immature 0.1 K/UL 0.0-0.17 [facility] - granulocytes Good [#/volume] in [facility] Automated count Differential [facility] - cell count [facility] ID Date Data Source [id number] 09/15/2019 09:44:01 AM EDT [facility] Clinical Indications/Reason For Exam: pa in.AP, [...] Name Value Range Interpretation Code Description Data [facility] rce(s) Supporting Document(s ) ID Date Data Source [id number] 09/15/2019 09:41:40 AM EDT [facility] THORACIC SPINE 4 views.History: Pain.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 Signing date/time: 09/15/2019 9:41 AMSigned by: CURTIS VARMA Name Value Range Interpretation Code Description Data [facility] rce(s) Supporting Document(s ) ID Date Data Source [id number] 09/15/2019 09:40:53 AM EDT [facility] [...] Name Value Range Interpretation Code Description Data [facility] rce(s) Supporting Document(s ) ID Date Data Source [id number] 08/17/2019 08:25:20 AM [facility] History: Chest PainTechnique: Portable c [...] Name Value Range Interpretation Code Description Data [facility] rce(s) Supporting Document(s ) ID Date Data Source [id number] 08/16/2019 11:12:22 PM [facility] The history is provided by [...] m orbidity or mortality cardiac cath at [facility] approx 6-8 months ago Other unknown [...] e Gets together: Not on file Attends mosque service: Not on file 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 [...] Calculation (Bezet) 429 ms Ca lculated P [place] 36 degrees Calculated R [place] 77 degrees Calculated T [place] -24 degrees Diagnosis Sinus tachycardiaBorderline T abnormalities, [...] Time: 08/16/19 9:00 PMResult Value Ref Range [place] level 0.21 (L) 0.6 - 1.2 MMOL/LEKG: sinus tach ycardia, rate 109Radiology:CXR: no acute findings<EMERGENCY DEPARTMENT CASE [facility]>Impression/Differential Diagnosis: Allergic reaction allergic, drug reactio n,ACS, pulmonary embolismED Course: Patient presents short of breath and mildly tach ycardic complainingof new onset rash to face anterior chest and posterior chest.Plan: Labs, chest x-ray, EKG, troponin, d-dimer, prednisone, Pepcid, [id number] PM patient verbalizes relief of symptoms rash has faded. He denies chestpain he denie s shortness of breath.Patient was advised that we cannot rule out allergic drug re action as he isrecently just restarted taking his lithium. Patient advised to discuss takinglithium with his psychiatrist as soon as possible.Patient reassessed at [facility] by me. Feels better at present, wants to go home.Patient was told to follow up with the primary doctor in 1-2 days and return [facility] ED for any worsening severe pain, [...] time of disposition: patriciaI have reviewed the [facility] medications:Prior to Admission medicationsMedication Sig Start Date End Date Taking? Authorizing ProviderbuPROPion XL (WELLBUTRIN XL) 300 mg XL tablet Take 300 mg by mouth everymorning. Yes Other, MD Paullithium carbonate 150 mg capsule Take 300 mg by mouth three (3) times daily.Yes Other, Lubna MillerredniSONE (DEL TASONE) 50 mg tablet Take [...] Take 60 mg by mouth daily. Other, Phys, LUBNAat CASANDRA Maldonado was personally available for consultation in the emerge ncy department. I havereviewed the chart and agree with the documentation recorded by the MLP,including the assessment, treatment plan, and disposition.Mayank Troy MD Name Value Range Interpretation Code Description Data Melani rce(s) Supporting Document(s ) ID Date Data Source 36N*ENCOUNTER 08/16/2019 10:46:05 PM [facility] [id number] [facility] EMERGENCY DEPARTMENT [address] [place] [address] [phone]/ AsaMaxwell (Male) [id number] ES I 3 ED Dispo:DISCHARGE Chief Complaint: Allergic Reaction Diagnosis: Allergic reaction, initial encounter [] Allergic reaction to drug, in itial encounter [] Current Providers: Attending: Javier Quezada Nurse Practitioner: Javier Ward Primary Nurse: HARINDER AcuñaN: [id number] Print Group [phone] - [facility] MrnMRN: [id number] Print Group [phone] - [facility] Age Sex 1970 AGE 49 SEX Male Primary Care Provider: Ritika Canas MD Aybhykgkp: (No Known Allergies)Date Reviewed: 08/16/2019Reviewed by: Zahraa Prince RN - Review CompleteED Provider Notes: No not es of this type exist for this encounter.ED Orders BUPROPION XL 300 MG 24 HR TAB [#[id number]] Priority: Routine Class: Historical Med LITHIUM CARBONATE 150 MG CAP [#[id number]] Priority: Routine Class: Historical Med FAMOTIDINE 20MG + NS 10 ML IV [#[id number]] Priority: STAT Class: Normal H2RA INDICATION -> Adverse reaction/Anaphylaxis SODIUM CH LORIDE 0.9 % IV [#[id number]] Priority: STAT Class: Normal METHYLPREDNISOLONE (PF) 125 MG/2 ML * [#[id number]] Priority: STAT Class: Normal ASPIRIN 81 MG CHEWABLE TAB [# [id number]] Priority: STAT Class: Normal PREDNISONE 50 MG TAB [#[id number]] Bridgette ority: Routine Class: Normal [id number] 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 [#[id number]] Priority: STAT C lass: Hospital Performed Standing Order Information Remaining Occurrences:0/1 Interval:Contin uous Last released:08/16/2019 Released orders: Sat Aug 16, 2019 9:02 PM by: Javier POLLOCK Type: -> Bedside [id number] OBTAIN OLD EKG [#[id number]] Priority: Routi ne Class: Hospital Performed Standing Order Information Remaining Occurrences:0/1 Inter haile:ONE TIME Last released:08/16/2019 Released orders: Sat Aug 16, 2019 9:02 PM by: INDIO WARD [id number] PULSE OXIMETRY CONTINUOUS [#[id number]] Priority: STAT Class: H ospital Performed Standing Order Information Remaining Occurrences:0/1 Interval:CONTIN UOUS Last released:08/16/2019 Released orders: Sat Aug 16, 2019 9:02 PM by: Javier POLLOCK [id number] 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 [#[id number]] Priority: STAT Class: Hospital Perfo rmed Type: -> Bedside Released on: 08/16/2019 9:02 PM [id number] OBTAIN OLD EKG [#[id number]] Priority: STAT Class: Hospital Performed Released on: 08/16/2019 9:02 PM [id number] PULSE OXIMETRY CONTINUOUS [#[id number]] Priority: STAT Class: Hospital Performed Relea sed on: 08/16/2019 9:02 PM [id number] DIET NPO [#[id number]] Priority: STAT Cla ss: Hospital Performed Standing Order Information Remaining Occurrences:0/1 Interval:DIET E FFECTIVE NOW Last released:08/16/2019 Released orders: Sat Aug 16, 2019 9:02 PM by: INDIO WARD NPO options: -> With Meds [id number] DIET NPO [#[id number]] Priority: STAT Class: Hospital Performed NPO options: -> With Meds Released on: 08/16/2019 9:02 PM [id number] SALINE LOCK IV [#[id number]] Priority: STAT Class: Hospital Performe d Standing Order Information Remaining Occurrences:0/1 Interval:ONE TIME Last released: 08/16/2019 Released orders: [facility] Aug 16, 2019 9:02 PM by: INDIO POLLOCK [id number] SALIN E LOCK IV [#[id number]] Priority: STAT Class: Hospital Performed Released on : 08/16/2019 9:02 PM [id number] METABOLIC PANEL, COMPREHENSIVE [#[id number]] Priority: STAT Class: E R Collect Standing Order Information Remaining Occurrences:0/1 Interval:ONE TIME Last r eleased:08/16/2019 Released orders: [facility] Aug 16, 2019 9:02 PM by: INDIO [id number] CBC WITH AUTOMATED DIFF [#[id number]] Priority: STAT Class: ER Collect Standing Order Info rmation Remaining Occurrences:0/1 Interval:ONE TIME Last released:08/16/2019 Released orders: [facility] Aug 16, 2019 9:02 PM by: INDIO POLLOCK [id number] TROPONIN I [#[id number]] Priority: STAT Class: ER Collect Standing Order Information Remaining Occurre nces:0/1 Interval:ONE TIME Last released:08/16/2019 Released orders: [facility] Aug 16 9:02 PM by: INDIO POLLOCK [id number] MAGNESIUM [#[id number]] Priorit y: STAT Class: ER Collect Standing Order Information Remaining Occurrences:0/1 Inter haile:ONE TIME Last released:08/16/2019 Released orders: [facility] Aug 16, 2019 9:02 PM by: INDIO WARD [id number] D DIMER [#[id number]] Priority: STAT Class: E R Collect Standing Order Information Remaining Occurrences:0/1 Interval:ONE TIME Last r eleased:08/16/2019 Released orders: [facility] Aug 16, 2019 9:02 PM by: INDIO POLLOCK [id number] METABOLIC PANEL, COMPREHENSIVE [#[id number]] Priority: STAT Class: ER Collect Specimen Source: Plas ma Specimen Collected: 08/16/2019 9:00 PM Resulting Agency: [facility] Test ID: MPL Released on: 08/16/2019 9:02 PM [id number] CBC WITH AUTOMATED DIFF [#[id number]] Prior ity: STAT Class: ER Collect Specimen Source: Whole Blood Specimen Collected: 08/16/2019 9:00 PM Resultin g Agency: [facility] Test ID: [id number] Released on: 08/16/2019 9:02 PM [id number] TROPONIN I [#[id number]] Priority: STAT Class: ER Collect Specimen Source : Plasma Specimen Collected: 08/16/2019 9:00 PM Resulting Agency: [facility] Test ID: TROIP Released on: 08/16/2019 9:02 PM [id number] MAGNESIUM [#[id number]] Priority: STAT Class: ER Collect Specimen Source: Plasma Specimen Collected: 08/16/2019 9:00 PM Resultin g Agency: [facility] Test ID: MGPL Released on: 08/16/2019 9:02 PM [id number] D DIMER [#[id number]] Priority: STAT Class: ER Collect Specimen Source : Plasma Specimen Collected: 08/16/2019 9:00 PM Resulting Agency: [facility] Test ID: [id number] Released on: 08/16/2019 9:02 PM [id number] LITHIUM [#[id number]] Priority: STAT Class: ER Collect Standing Order Information Remaining Occurrences:0/1 Inter haile:ONE TIME Last released:08/16/2019 Released orders: Sat Aug 16, 2019 9:02 PM by: INDIO WARD [id number] LITHIUM [#[id number]] Priority: STAT Class: E R Collect Specimen Source: Serum Specimen Collected: 08/16/2019 9:00 PM Resulting Agency: [facility] Test ID: LI Released on: 08/16/2019 9:02 PM [id number] EKG, 12 LEAD, INITIAL [#[id number]] Priority: STAT Class: Hospital Performed Standing Order Information Remainin g Occurrences:0/1 Interval:ONE TIME Last released:08/16/2019 Released orders : Sat Aug 16, 2019 9:02 PM by: INDIO POLLOCK Reason for Exam: -> Chest Pain [id number] EKG, 12 LEAD, INITIAL [#[id number]] Priority: STAT Class: Hospital Performed Resulting Age ncy: GSH MUSE Test ID: [id number] Reason for Exam: -> Chest Pain Released on: 08/16/2019 9:02 PM [id number] XR CHEST PORT [#[id number]] Priority: STAT Class: Hospital Performed Stand ing Order Information Remaining Occurrences:0/1 Interval:ONE TIME Last released:0 08/16/2019 Released orders: Sat Aug 16, 2019 9:02 PM by: INDIO POLLOCK Reason for Exam -> Chest Pain [id number] XR CHEST PORT [#[id number]] Priority: STAT Class: H ospital Performed Resulting Agency: [facility] Test ID: [id number] Reason for Exam -> Chest Pain Rele ased on: 08/16/2019 9:02 Maxwell Corona MR#: [id number] * Rm: [id number] Ht: 5' 10" Wt: 280 lb Code: Prior Iso:Diagnosis:Allergies: No Known Allergies -------- Current as of: 08/16/192245 GI=Given IC=IV Complet ed NB=New Bag --aspirin (ASPIRIN) tablet 325 mg #[id number] Admin Amount: 1 Tab (1 x 325 mg Tab) Ordered Dose: 325 mg Route: Oral Freq: ONCE Start Date: 12/24/13 No administration times (back 96 hours, ahead 96 hours). ------diphenhydrAMINE (BENADRYL) capsule 50 mg #[id number] Admin Amount: 1 Cap (1 x 50 mg Cap) Ordered Dose: 50 mg Route: Garya l Freq: NOW Start Date: 12/24/13 No administration times (back 96 hours, ahe ad 96 hours). ------diazepam (VALIUM) tablet 5 mg #[id number] Admin Amount: 1 Tab (1 x 5 mg Tab) Ordered Dose: 5 mg Route: Oral Freq: ON CE Start Date: 12/24/13 No administration times (back 96 hours, ahead 96 hours). ------lidocaine (XYLOCAINE) 10 mg/mL (1 %) injection 1-30 mL #[id number] Admin Amount: 1-30 mL Ordered Dose: 1-30 mL Route: IntraDERMal Freq: ONCE Start Date: 12/24/13 No administration times (back 96 hours, ahead 96 hours). ------heparin (PF) 2 units/ml in NS infusion 2,000 Units #[id number] Admin Amount: 1,000 mL = 2,000 Units of 2 Units/mL Ordered Dose: 1,000 mL Ro belkofski: Irrigation Freq: ONCE Start Date: 12/24/13 No administration times (back 96 hours, ahead 96 hours). ------heparinized saline 2 units/mL infusion 1,000 Units #[id number] Admin Amount: 500 mL = 1,000 Units of 2 Units/mL Ordered Dose: 500 mL Ro belkofski: IntraarTERial Freq: ONCE Start Date: 12/24/13 No administration times (back 96 hours, ahead 96 hours). ------0.9% sodium chloride infusion #[id number] Ordered Dose: 75 mL/hr Route: IntraVENous Freq: CONTINUOUS Start Date: 12/24/13 Rate: 75 mL/hr Duration: No administration times (back 96 hours, ahead 96 hours). ------ioversol (OPTIRAY) 320 mg iodine/mL contrast injection 1-100 mL #[id number] Admin Amount: 1-100 mL Ordered Dose: 1-100 mL Route: IntraVENous Freq: RAD O NCE Start Date: 12/24/13 No administration times (back 96 hours, ahead 96 hours).Maxwell Bray MR#: [id number] * Rm: [id number]: 5' 10" Wt: 280 lb Co de: Prior Iso:Diagnosis:Allergies: No Known Allergies -------- Current as of: 08/16/19 224 GI=Given IC=IV Complet ed NB=New Bag --gadobutrol (GADAVIST) contrast solution 1-10 mL #[id number] Admin Amount: 1-10 mL Ordered Dose: 1-10 mL Route: IntraVENous Freq: RAD O NCE Start Date: 01/13/14 No administration times (back 96 hours, ahead 96 hours). ------sodium chloride (NS) flush 5-10 mL #[id number] Admin Amount: 5-10 mL Ordered Dose: 5-10 mL Route: IntraVENous Freq: RAD ONCE Start Date: 01/13/14 No administration times (back 96 hours, ahead 96 hours). ------sodium chloride (NS) 0.9 % flush #[id number] Ordered Dose: Route: Freq: Start Date: 01/13 No administration times (back 96 hours, ahead 96 hours). ------morphine injection 2 mg #[id number] Admin Amount: 1 mL = 2 mg of 2 mg/mL Ordered Dose: 2 mg Route: IntraVENous Freq: NOW Start Date: 03/13/15 No administration times (back 96 hours, ahe ad 96 hours). ------influenza vaccine (4 yr+)(PF) (FLUCELVAX QUAD) inj ection 0.5*#[id number] Admin Amount: 0.5 mL Ordered Dose: 0.5 mL Route: IntraMUSCular Freq: PRIOR TO DISCHARGE Start Date: 03/30/16 No administration times (back 96 hours, ahead 96 hours). ------oxyCODONE-acetaminophen (PERCOCET) 5-325 mg per tablet 1 Tab #[id number] Admin Amount: 1 Tab Ordered Dose: 1 Tab Route: Oral Freq: NOW Start Date: 09/07/17 No administration times (back 96 hours, ahead 96 hours). ------barium sulfate (READICAT) 2.1 % (w/v), 2.0 % (w /w) oral suspension 9*#[id number] Admin Amount: 900 mL Ordered Dose: 900 mL Route: Oral Delgado q: RAD ONCE Start Date: 10/15/17 No administration times (back 96 hours, ahead 96 hours). ------iopamidol (ISOVUE 300) 61 % contrast injection 100 mL #[id number] Admin Amount: 100 mL Ordered Dose: 100 mL Route: IntraVENous Freq: RAD ONC E Start Date: 10/15/17 No administration times (back 96 hours, ahead 96 hours).Maxwell Bray MR#: [id number] * Rm: [id number]: 5' 10" Wt: 280 lb Code: Prior Iso:Diagnosis:Allergies: No Known Allergies -------- Current as of: 08/16/192245 GI=Given IC=IV Complet ed NB=New Bag --risperiDONE (RisperDAL m-tabs) disintegrating tablet 1 mg #[id number] Admin Amount: 1 Tab (1 x 1 mg Tab) Ordered Dose: 1 mg Route: Oral Freq: ONCE Start Date: 12/24/17 No administration times (back 96 hours, ahead 96 hours). ------ALPRAZolam (XANAX) tablet 2 mg #[id number] Admin Amount: 4 Tab (4 x 0.5 mg Tab) Ordered Dose: 2 mg Route: Ora l Freq: NOW Start Date: 12/24/17 No administration times (back 96 hours, ahe ad 96 hours). ------lamoTRIgine (LaMICtal) tablet 100 mg #[id number] Admin Amount: 1 Tab (1 x 100 mg Tab) Ordered Dose: 100 mg Route: Oral Delgado q: ONCE Start Date: 12/24/17 No administration times (back 96 hours, ahead 96 hours). ------OLANZapine (ZyPREXA zydis) disintegrating tablet 5 mg #[id number] Admin Amount: 1 Tab (1 x 5 mg Tab) Ordered Dose: 5 mg Route: Oral Delgado q: ONCE Start Date: 12/25/17 No administration times (back 96 hours, ahead 96 hours). ------LORazepam (ATIVAN) tablet 2 mg #[id number] Admin Amount: 4 Tab (4 x 0.5 mg Tab) Ordered Dose: 2 mg Route: Ora l Freq: NOW Start Date: 12/25/17 No administration times (back 96 hours, ahe ad 96 hours). ------LORazepam (ATIVAN) injection 1 mg #[id number] Admin Amount: 0.5 mL = 1 mg of 2 mg/mL Ordered Dose: 1 mg Route: Int raVENous Freq: NOW Start Date: 12/25/17 No administration times (back 96 hours, e ad 96 hours). ------barium sulfate (EZ PAQUE) 96 % (w/w) contrast suspension 17 6 g #[id number] Admin Amount: 176 g Ordered Dose: 176 g Route: Oral Freq: RAD ONCE Start Date: 08/02/18 No administration times (back 96 hours, ahead 96 hours). ------barium sulfate (EZ PAQUE) 96 % (w/w) contrast s uspension 176 g #[id number] Admin Amount: 176 g Ordered Dose: 176 g Route: Oral Delgado q: RAD ONCE Start Date: 08/02/18 No administration times (back 96 hours, ahead 96 hours).Maxwell Ritter MR#: [id number] * Rm: [id number]: 5' 10" Wt: 280 lb Co de: Prior Iso:Diagnosis:Allergies: No Known Allergies -------- Current as of: 08/16/192245 GI=Given IC=IV Complet ed NB=New Bag --aspirin chewable tablet 162 mg #[id number] Admin Amount: 2 Tab (2 x 81 mg Tab) Ordered Dose: 162 mg Route: Oral Freq: NOW Start Date: 08/10/19 No administration times (back 96 hours, ahead 96 hours). ------famotidine (PF) (PEPCID) 20 mg in 0.9% sodium chloride 10 mL inje cti*#[id number] Admin Amount: 20 mg Ordered Dose: 20 mg Route: IntraVENous Freq: EVERY 12 H OURS Start Date: 08/16/19 Administration times (back 96 hours, ahead 96 hours): 08/16/19: 2119G I 08/17/19: 89908/18/19: 89908/19/19: 89908/20/19: 899 2099 ---0.9% sodium chloride infusion 1,000 mL #[id number] Admin Amount: 1,000 mL Ordered Dose: 1,000 mL Route: IntraVENous Freq: ONC E Start Date: 08/16/19 Rate: 1,000 mL/hr Duration: Administration times (back 96 hours, ahead 96 hours): 08/16/19: 2118NB 2245IC -----methylPREDNISolone (PF) (Solu-MEDROL) injection 125 mg #[id number] Admin Amount: 2 mL = 125 mg of 125 mg/2 mL Ordered Dose: 125 mg Route: Int raVENous Freq: NOW Start Date: 08/16/19 Administration times (back 96 hours, ahe ad 96 hours): 08/16/19: 2119GI -----aspirin chewable tablet 162 mg #[id number] Admin Amount: 2 Tab (2 x 81 [...] mg by mouth three (3) times daily.Dispense [facility] unt:Start Date:End Date:Doc. Provider: Paul Bradford MDpredniSONE (DELTASONE) 50 mg tabletSig:Take 1 Tab b y mouth daily for 3 days.Dispense Amount:3 TabStart Date:08/16/2019End Date:08/19/2019Doc. Provider: Javier Pollock atricia Joe NPVRAYLAR 6 mg capsuleSig:Take 6 mg by [...] InformationFollow-up With:Ritika Canas M DDetails:In 2 daysComments:Contact Info:[address] [place] [address] [phone]-up With:[facility] DEPARTMENTDetails:Comments:As needed, If symptoms worsenContact Info:[address] [place] [phone] Name Value Range Interpretation Code Description Data Melani rce(s) Supporting Document(s ) ID Date Data Source [id number] 08/16/2019 10:45:45 PM EST [facility] IV site clean/dry/intact, gauze dressing applied. Pt received written and verbaldischarge instructions. Verbalize d understanding of same. Ambulated out of EDwith steady gait and in no distress. Name Value Range Interpretation Code Description Data Melani rce(s) Supporting Document(s ) ID Date Data Source [id number] 08/16/2019 09:58:14 PM EST [facility] Name Value Range Interpretation Description Data Sup porting Code Source(s) Document(s ) [place] 0.21 0.6-1.2 Below low normal [facility] [Moles/volu MMOL/L [facility]] in Hospital Serum or Plasma ID Date Data Source [id number] 08/16/2019 09:52:19 PM EST [facility] Name Value Range Interpretation Code Description Data [facility] rce(s) Supporting Document(s ) Fibrin <500 [facility] D-dimer [facility] in Platelet poor plasma (NOTE)Combination of a D-Dimer result wi thin the reference range and a lowclinical pretest probability has good negative pr edictive value fordeep venous thrombosis.If results are utilized for VTE evaluation, <500 ng/ml is consideredto be negative. ID Date Data Source [id number] 08/16/2019 09:44:39 PM EST [facility] Name Value Range Interpretation Description Data Sup porting Code Source(s) Document(s ) Troponin 0.00-0.05 [facility] I.cardiac [facility] ] in Serum or Plasma [...] to 1.50 ng/mL ID Date Data Source [id number] 08/16/2019 09:44:39 PM EST [facility] Name Value Range Interpretation Description Data Sup porting Code Source(s) Document(s ) Sodium 138 136-145 [facility] [Moles/volume] mmol/L [facility] in Serum or Hospital Plasma Potassium 3.4 3.5-5.1 Below low normal [facility] [Moles/volume] mmol/L [facility] in Serum or Hospital Plasma Chloride 108 98-107 Above high normal [facility] [Moles/volume] mmol/L [facility] in Serum or Hospital Plasma Carbon 20 21-32 Below low normal [facility] dioxide, total mmol/L [facility] [Moles/volume] Hospital in Serum or Plasma Anion gap in 14 10-20 [facility] Serum or mmol/L [facility] Plasma Hospital Glucose 105 74-106 [facility] [Mass/volume] mg/dL [facility] in Serum or Hospital Plasma Urea nitrogen 20 mg/dL 7-18 Above high normal [facility] [Mass/volume] [facility] in Serum or Hospital Plasma Creatinine 0.90 0.70-1.3 [facility] [Mass/volume] mg/dL 0 [facility] in Serum or Hospital Plasma Glomerular >60 [facility] filtration [facility] rate/1.73 sq M Hospital predicted among blacks [Volume Rate/Area] in Serum or Plasma by Creatinine-bas ed formula (MDRD) Glomerular >60 [facility] filtration [facility] rate/1.73 sq M Hospital predicted among non-blacks [Volume Rate/Area] in Serum or Plasma by Creatinine-bas ed formula (MDRD) (NOTE)Estimated GFR is calculated using the Modification of Diet in RenalDisease (MDRD) Study equation, reported for both Americans(GFRAA) and non- Americans (GFRNA), and normalized to 1.7 7d9nsca surface area. The physician must decide which [...] normal [facility] Serum or Plasma [facility] ital Bilirubin.total 0.3 mg/dL 0.2-1.0 [facility] [Mass/volume] in Serum or [facility] Plasma Alanine aminotransferase 37 U/L 13-61 [facility] [Enzymatic activity/volume] [facility] in Serum or Plasma Aspartate aminotransferase 22 U/L 15-37 [facility] [Enzymatic activity/volume] [facility] in Serum or Plasma by With P-5'-P Alkaline phosphatase 98 U/L 45-117 [facility] o[facility] [Enzymatic activity/volume] [facility] in Serum or Plasma Protein [Mass/volume] in 7.0 g/dL 6.4-8.2 [facility] Serum or Plasma [facility] ital Albumin [Mass/volume] in 3.7 g/dL 3.5-4.7 [facility] Serum or Plasma by [facility] ospital Bromocresol purple (BCP) dye binding method Globulin [Mass/volume] in 3.3 g/dL 1.7-4.7 [facility] Serum by calculation [facility] Albumin/Globulin [Mass 1.1 0.7-2.8 [facility] Ratio] in Serum or Plasma [facility] ID Date Data Source [id number] 08/16/2019 09:44:39 PM EST [facility] Name Value Range Interpretation Description Data Sup porting Code Source(s) Document(s ) Magnesium 2.3 mg/dL 1.6-2.6 [facility] [Mass/volume] [facility] in Serum or Hospital Plasma ID Date Data Source [id number] 08/16/2019 09:23:23 PM EST [facility] Name Value Range Interpretation Description Data Sup porting Code Source(s) Document(s ) Leukocytes 7.6 K/uL 4.8-10.6 [facility] - [#/volume] in Good Blood by [facility] Automated count Hospital Erythrocytes 4.97 4.70-6.0 [facility] - [#/volume] in M/uL 0 Good Blood by [facility] Hemoglobin 15.2 14.0-18. [facility] - [Mass/volume] in g/dL 0 [facility] Blood [facility] Hematocrit 45.0 % 42.0-52. [facility] - [Volume 0 Good Fraction] of [facility] Blood by Hospital Automated count Erythrocyte mean 90.5 FL 81.0-94. [facility] - corpuscular 0 Good volume [Entitic [facility] volume] by Hospital Automated count Erythrocyte mean 30.6 PG 27.0-35. [facility] - corpuscular 0 Good hemoglobin [facility] [Entitic mass] Hospital by Automated count Erythrocyte mean 33.8 30.7-37. [facility] - corpuscular g/dL 3 Good hemoglobin [facility] [Mass/volume] by Automated count Erythrocyte 13.0 % 11.5-14. [facility] - distribution 0 Good width [Ratio] by [facility] count [facility] Platelets 183 K/uL 130-400 [facility] - [#/volume] in Good Blood by [facility] Platelet mean 8.5 FL 9.2-11.8 Below low normal [facility] - volume [Entitic Good volume] in Blood [facility] by Automated Hospital count Nucleated 0.0 PER 0 [facility] - erythrocytes/100 100 WBC Good leukocytes [facility] [Ratio] in Blood Hospital Nucleated 0.00 0.0-0.01 [facility] - erythrocytes K/uL Good [#/volume] in [facility] Blood [facility] Segmented 68 % 48.0-72. [facility] - neutrophils/100 0 Good leukocytes in [facility] Lymphocytes/100 19 % 18.0-40. [facility] - leukocytes in 0 Good Blood [facility] Monocytes/100 7 % 2.0-12.0 [facility] - leukocytes in Good Blood [facility] Eosinophils/100 5 % 0.0-7.0 [facility] - leukocytes in Good Blood [facility] Basophils/100 1 % 0.0-3.0 [facility] - leukocytes in [facility] Immature 1 % 0-0.5 Above high normal [facility] - granulocytes/100 [facility] leukocytes in [facility] by [facility] Automated count Segmented 5.2 K/UL 2.3-7.6 [facility] - neutrophils Good [#/volume] in [facility] Lymphocytes 1.5 K/UL 0.9-4.2 [facility] - [#/volume] in [facility] Monocytes 0.6 K/UL 0.1-1.7 [facility] - [#/volume] in [facility] Eosinophils 0.3 K/UL 0.0-1.0 [facility] - [#/volume] in [facility] Basophils 0.0 K/UL 0.0-0.4 [facility] - [#/volume] in [facility] Immature 0.0 K/UL 0.0-0.17 [facility] - granulocytes Good [#/volume] in [facility] Automated count Differential [facility] - cell count [facility] method [facility] ID Date Data Source [id number] 08/16/2019 08:50:30 PM EST [facility] sudden onset of difficulty breathing and rash while eating leticia food, rashacross face and chest slightly raised, no vesicles, denies any chest pain deniesany itching at this time. Went to urgent care, recei nataliia benadryl 50 mg IMfrom EMS. Name Value Range Interpretation Code Description Data Melani rce(s) Supporting Document(s ) ID Date Data Source [id number] 08/11/2019 08:03:02 AM EST [facility] History:Chest pain. Shortness of breath. FINDINGS:A [...] Supporting Document(s ) ID Date Data Source [id number] 08/11/2019 04:22:14 AM [facility] The history is provided by [...] of morbidity or mortality cardiac cath at [facility] approx 6-8 months ag o Other [...] e Gets together: Not on file Attends mosque service: Not on file 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 [...] QTC Calculation (Bezet) 435 ms Calculated P [place] 55 degrees Calculated R [place] 34 degrees Calculated T [place] 9 degrees Diagnosis S inus tachycardiaOtherwise normal [...] Time: 08/11/19 12:01 AMResult Value Ref Range [place] level <0.20 (L) 0.6 - 1.2 MMOL/LLACTIC [...] Date Data Source 36N*ENCOUNTER 08/11/2019 01:42:54 AM RYLIE [facility] [id number] [facility] EMERGENCY DEPARTMENT [address] [facility] [address] [phone]/ Maxwell Mitchell (Male) [id number] JOSE 2 ED Dispo:DISCHARGE Chief Complaint: Chest Pain, Shortne ss of Breath Diagnosis: Dyspnea, unspecified type [] Current Providers: Atte jellying: Javier Quezada Primary Nurse: ELIS WilsonN: [id number] Print Grou p [phone] - Bshsi [facility] MrnMRN: [id number] Print Group [phone] - Bs hsi Ed Medva Age SexDOB 1970 AGE 49 SEX Male Primary Care Provider: Ritika Canas MD Phone: [phone]: (No Known Allergies)Date Reviewed: 08/10/2019Reviewed by: Chiquis Christianson CompleteED Provider Notes: No notes of this type exist for this encounter.ED Orders [id number] E KG, 12 LEAD, INITIAL [#[id number]] Priority: STAT Class: Hospital Performed Stand ing Order Information Remaining Occurrences:0/1 Interval:ONE TIME Last released:0 08/10/2019 Released orders: [place] Aug 10, 2019 10:17 PM by: CHIQUIS CHRISTIANSON Reason for Exam: -> CP SOB [id number] EKG, 12 LEAD, INITIAL [#[id number]] Priority: STAT Class: Hospital Performed Specimen Collected: 08/10/2019 10:14 PM Resulting Agency: [facility] Test ID: [id number] Reason for Exam: -> CP SOB Released on: 08/10/2019 10:17 PM [id number] EKG, 12 LE AD, INITIAL [#[id number]] Priority: STAT Class: Hospital Performed Standing Or mariano Information Remaining Occurrences:01 Interval:ONE TIME Last released:0 08/10/2019 Released orders: [place] Aug 10, 2019 11:51 PM by: MAYANK QUEZADA V Reason fo r Exam: -> Chest Pain [id number] EKG, 12 LEAD, INITIAL [#[id number]] Priority: STAT C lass: Hospital Performed Resulting Agency: [facility] Test ID: [id number] Reason for Exam: -> Chest P ain Released on: 08/10/2019 11:51 PM [id number] 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 [#[id number]] Priority: STAT Class: Hospital Performed Standing Order Information Remaining Occurre nces:0/1 Interval:Continuous Last released:08/10/2019 Released orders : [place] Aug 10, 2019 11:51 PM by: MAYANK QUEZADA V Type: -> Bedside [id number] PULSE OXIMETR Y CONTINUOUS [#[id number]] Priority: STAT Class: Hospital Performed Standing Or mariano Information Remaining Occurrences:0/1 Interval:CONTINUOUS Last released :08/10/2019 Released orders: [place] Aug 10, 2019 11:51 PM by: MAYANK QUEZADA V [id number] PULSE OXIMETRY SPOT CHECK [#[id number]] Priority: STAT Class: Hospital Performe d Standing Order Information Remaining Occurrences:0/1 Interval:ONE TIME Last r eleased:08/10/2019 Released orders: [place] Aug 10, 2019 11:51 PM by: MAYANK QUEZADA V [id number] OBTAIN OLD EKG [#[id number]] Priority: Routine Class: Hospital Perfo rmed Standing Order Information Remaining Occurrences:0/1 Interval:ONE TI ME Last released:08/10/2019 Released orders: [place] Aug 10, 2019 11:51 PM by: MAYANK QUEZADA V [id number] 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 [#[id number]] Priority: STAT Class: H ospital Performed Type: -> Bedside Released on: 08/10/2019 11:51 PM [id number] PULSE OXIM ETRY CONTINUOUS [#[id number]] Priority: STAT Class: Hospital Performed Released on : 08/10/2019 11:51 PM [id number] PULSE OXIMETRY SPOT CHECK [#[id number]] Priority: STAT C lass: Hospital Performed Released on: 08/10/2019 11:51 PM [id number] OBTAIN OLD EKG [#[id number]] Priority: STAT Class: Hospital Performed Released on: 08/10/2019 11: 51 PM [id number] RT--OXYGEN CANNULA [#[id number]] Priority: STAT Class: H ospital Performed Standing Order Information Remaining Occurrences:0/1 Interval:CONTIN UOUS Last released:08/10/2019 Released orders: [place] Aug 10, 2019 11:51 PM by: MAYANK PRADO V Comment:TITRATE UP TO 4 L / MINUTE TO MAINTAIN O2 SATS GREATER THAN OR EQUAL TO 94% LPM -> 2 Indications for O2? -> CHEST PAIN [id number] RT--OXYGEN CANNULA [#[id number]] Priority: STAT Class: Hospital Performed Comment:TITRATE UP TO 4 L / MINUTE TO MAINTAIN O2 SATS GREATER THAN OR EQUAL TO 94% LPM -> 2 Indications fo r O2? -> CHEST PAIN Released on: 08/10/2019 11:51 PM [id number] DIET NPO [#[id number]] Priority: STAT Class: Hospital Performed Standing Order Information Remaining Occurrences:0/1 Interval:DIET EFFECTIVE NOW Last released:08/10 Released orders: [place] Aug 10, 2019 11:51 PM by: MAYANK QUEZADA V NPO options: - > With Meds [id number] DIET NPO [#[id number]] Priority: STAT Class: H ospital Performed NPO options: -> With Meds Released on: 08/10/2019 11:51 PM [id number] SALINE LOCK IV [#[id number]] Priority: STAT Class: Hospital Performed Standing O rder Information Remaining Occurrences:0/1 Interval:ONE TIME Last released:0 08/10/2019 Released orders: [place] Aug 10, 2019 11:51 PM by: MAYANK QUEZADA V [id number] SALI NE LOCK IV [#[id number]] Priority: STAT Class: Hospital Performed Relea sed on: 08/10/2019 11:51 PM [id number] METABOLIC PANEL, COMPREHENSIVE [#[id number]] Bridgette ority: STAT Class: ER Collect Standing Order Information Remaining Occurrences:0/1 In terval:ONE TIME Last released:08/10/2019 Released orders: [place] Aug 10, 2019 11:51 PM by: MAYANK QUEZADA V [id number] CBC WITH AUTOMATED DIFF [#[id number]] Priority: STAT Class: ER Collect Standing Order Information Remaining Occurrences:0/1 Inter haile:ONE TIME Last released:08/10/2019 Released orders: [place] Aug 10, 2019 11:51 PM by: MAYANK QUEZADA V [id number] TROPONIN I [#[id number]] Priority: STAT Class: ER Collect Standing Order Information Remaining Occurrences:0/1 Inter haile:ONE TIME Last released:08/10/2019 Released orders: [place] Aug 10, 2019 11:51 PM by: MAYANK QUEZADA V [id number] MAGNESIUM [#[id number]] Priority: STAT Class: ER Collect Standing Order Information Remaining Occurrences:0/1 Inter haile:ONE TIME Last released:08/10/2019 Released orders: [place] Aug 10, 2019 11:51 PM by: MAYANK QUEZADA V [id number] BNP [#[id number]] Priority: STAT Class: ER Collect Standing Order Information Remaining Occurrences:0/1 Inter haile:ONE TIME Last released:08/10/2019 Released orders: [place] Aug 10, 2019 11:51 PM by: MAYANK QUEZADA V [id number] D DIMER [#[id number]] Priority: STAT Class: ER Collect Standing Order Information Remaining Occurrences:0/1 Inter haile:ONE TIME Last released:08/10/2019 Released orders: [place] Aug 10, 2019 11:51 PM by: MAYANK QUEZADA V [id number] PROTHROMBIN TIME + INR [#[id number]] Priority: STAT Class: ER Collect Standing Order Information Remaining Occurrences:0/1 Inter haile:ONE TIME Last released:08/10/2019 Released orders: [place] Aug 10, 2019 11:51 PM by: MAYANK QUEZADA V [id number] PTT [#[id number]] Priority: STAT Class: ER Collect Specimen Source: Blood Standing Order Information Remaining Occurrences:0 /1 Interval:ONE TIME Last released:08/10/2019 Released orders: [place] Aug 10, 2019 11:51 PM by: MAYANK QUEZADA V [id number] LITHIUM [#[id number]] Pr iority: STAT Class: ER Collect Standing Order Information Remaining Occurrences:0/1 I nterval:ONE TIME Last released:08/10/2019 Released orders: [place] Aug 10, 2019 11:51 PM by: MAYANK QUEZADA V [id number] METABOLIC PANEL, COMPREHENSIVE [#[id number]] Bridgette ority: STAT Class: ER Collect Specimen Source: Plasma Specimen Collected: 08/11/2019 12:01 AM Resulting Agency: [facility] Test ID: MPL Released on: 08/10/2019 11:51 PM [id number] CBC WITH AUTOMATED DIFF [#[id number]] Priority: STAT Class: E R Collect Specimen Source: Whole Blood Specimen Collected: 08/11/2019 12:01 AM Resulting Agency: [facility] Test ID: CBCXA Released on: 08/10/2019 11:51 PM [id number] TROPON IN I [#[id number]] Priority: STAT Class: ER Collect Specimen Source: [place] sma Specimen Collected: 08/11/2019 12:01 AM Resulting Agency: [facility] RY Test ID: TROIP Released on: 08/10/2019 11:51 PM [id number] MAGNESIUM [#[id number]] Priority: STAT Class: ER Collect Specimen Source: Plasma Specimen Collec hyun: 08/11/2019 12:01 AM Resulting Agency: [facility] Test ID: MGPL Re leased on: 08/10/2019 11:51 PM [id number] BNP [#[id number]] Priority : STAT Class: ER Collect Specimen Source: Plasma Specimen Collected: 08/11/2019 12:01 AM Resultin g Agency: [facility] Test ID: BNPPB Released on: 08/10/2019 11:51 PM [id number] D DIMER [#[id number]] Priority: STAT Class: ER Collect Speci men Source: Plasma Specimen Collected: 08/11/2019 12:01 AM Resulting Agency: [facility] Test ID: DDIME Released on: 08/10/2019 11:51 PM [id number] PROTHROMBIN TIME + INR [#[id number]] Priority: STAT Class: ER Collect Specimen Source: Plasma Specimen Collec hyun: 08/11/2019 12:01 AM Resulting Agency: [facility] Test ID: APTHR R eleased on: 08/10/2019 11:51 PM [id number] PTT [#[id number]] Priorit y: STAT Class: ER Collect Specimen Source: Plasma Specimen Collected: 08/11/2019 12:01 AM Resultin g Agency: [facility] Test ID: APTT Released on: 08/10/2019 11:51 PM [id number] LITHIUM [#[id number]] Priority: STAT Class: ER Collect Speci men Source: Serum Specimen Collected: 08/11/2019 12:01 AM Resulting Agency: [facility] Test ID: LI Released on: 08/10/2019 11:51 PM [id number] LACTIC ACID [#[id number]] Priority: STAT Class: ER Collect Standing Order Information Remainin g Occurrences:0/1 Interval:ONE TIME Last released:08/11/2019 Released orders : SunAug 11, 2019 12:15 AM by: KATI WILSON [id number] LACTIC ACID [#[id number]] Priority: STAT Class: ER Collect Specimen Source: Plasma Specimen Collec hyun: 08/11/2019 12:01 AM Resulting Agency: [facility] Test ID: LAC Rel eased on: 08/11/2019 12:15 AM ASPIRIN 81 MG CHEWABLE TAB [#[id number]] Priority: STAT Class: Normal [id number] XR CHEST PORT [#[id number]] Priority: STAT Cl ass: Hospital Performed Standing Order Information Remaining Occurrences:0/1 Inter haile:ONE TIME Last released:08/10/2019 Released orders: [place] Aug 10, 2019 11:51 PM by: MAYANK QUEZADA V Reason for Exam -> Chest Pain [id number] XR CHEST PORT [#[id number]] Priority: STAT Class: Hospital Performed Resulting Agency: [facility] Test ID: [id number] Reason for Exam -> Chest Pain Released on: 08/10/2019 11:51 PM [id number] INFLUENZA A & B AG (RAPID TEST) [#[id number]] Priority: STAT Class: ER Collect Sta nding Order Information Remaining Occurrences:0/1 Interval:ONE TIME Last released: 08/10/2019 Released orders: [place] Aug 10, 2019 11:51 PM by: MAYANK QUEZADA V [id number] INFL UENZA A & B AG (RAPID TEST) [#[id number]] Priority: STAT Class: ER Collect Specimen Source : Nasal washing Specimen Collected: 08/11/2019 12:18 AM Resulting Agency: [facility] Test ID: INFLUA Released on: 08/10/2019 11:51 PM [id number] CULTURE, BLOOD [#[id number]] Priority: STAT Class: ER Collect Specimen Source: Blood Standing Order Information Remaining Occurrences:0/1 Interval:ONE TIME Last released:0 08/11/2019 Released orders: SunAug 11, 2019 12:15 AM by: KATI WILSON [id number] CULTU RE, BLOOD [#[id number]] Priority: STAT Class: ER Collect Specimen Source : Blood Standing Order Information Remaining Occurrences:0/1 Interval:ONE TI ME Last released:08/11/2019 Released orders: SunAug 11, 2019 12:15 AM by: KATI WILSON [id number] CULTURE, BLOOD [#[id number]] Priority: STAT Class: E R Collect Specimen Source: Blood Specimen Collected: 08/11/2019 12:33 AM Resulting Agency: [facility] Test ID: HBCS Released on: 08/11/2019 12:15 AM [id number] VIANEY E, BLOOD [#[id number]] Priority: STAT Class: ER Collect Specimen Source: Blo od Specimen Collected: 08/11/2019 12:43 AM Resulting Agency: [facility] Test ID: HBCS Released on: 08/11/2019 12:15 AMMaxwell Bray MR#: [id number] Acct#: [id number]* Rm: PA11-17Xi: 5' 10" Wt: 280 lb Code: Prior Iso:Diagnosis:Allergies: No Kno wn Allergies -------- Current as of: 08/11/19 0142 GI=Given -------aspirin (ASPIRIN) tablet 325 mg #[id number] Admin Amount: 1 Tab (1 x 325 mg Tab) Ordered Dose: 325 mg Route: Oral Freq: ONCE Start Date: 12/24/13 No administration times (b ack 96 hours, ahead 96 hours). ------diphenhydrAMINE (BENADRYL) capsule 50 mg #[id number] Admin Amount: 1 Cap (1 x 50 mg Cap) Ordered Dose: 50 mg Ro belkofski: Oral Freq: NOW Start Date: 12/24/13 No administration times (back 96 hours, ahead 96 hours). ------diazepam (VALIUM) tablet 5 mg #[id number] Admin Amount: 1 Tab (1 x 5 mg Tab) Ordered Dose: 5 mg Route: Oral Freq: ONCE Start Date: 12/24/13 No administration times (back 96 hours, ahead 96 hours). ------lidocaine (XYLOCAINE) 10 mg/mL (1 %) injection 1-3 0 mL #[id number] Admin Amount: 1-30 mL Ordered Dose: 1-30 mL Route: Int raDERMal Freq: ONCE Start Date: 12/24/13 No administration times (back 96 hours, ahead 96 hours). ------heparin (PF) 2 units/ml in NS infusion 2,000 Units #[id number] Admin Amount: 1,000 mL = 2,000 Units of 2 Units/mL Ordered Dose: 1,000 mL Route: Irrigation Freq: ONCE Start Date: 12/24/13 No administration times (back 96 hours, ahead 96 hours). ------heparinized saline 2 units/mL infusion 1,000 Units #[id number] Admin Amount: 500 mL = 1,000 Units of 2 Units/mL Ordered Dose: 500 m L Route: IntraarTERial Freq: ONCE Start Date: 12/24/13 No admini stration times (back 96 hours, ahead 96 hours). ------0.9% sodium chloride infusion #[id number] Ordered Dose: 75 mL/hr Route: IntraVENous Freq: CONTINUOUS Start Date: 12/24/13 Rate: 75 mL/hr Duration: No administration ti mes (back 96 hours, ahead 96 hours). ------ioversol (OPTIRAY) 320 mg iodine/mL contrast inje ction 1-100 mL #[id number] Admin Amount: 1-100 mL Ordered Dose: 1-100 mL Ro belkofski: IntraVENous Freq: RAD ONCE Start Date: 12/24/13 No administration times (back 96 hours, ahead 96 hours).Maxwell Bray MR#: [id number] * Rm: ER10-10 Ht: 5' 10" Wt: 280 lb Code: Prior Iso:Diagnosis:Allergies: No Known Allergies -------- Current as of: 08/11/19 0142 GI=Given -------gadobutrol (GADAVIST) contrast solution 1-10 mL #[id number] Admin Amount: 1-10 mL Ordered Dose: 1-10 mL Route: Int raVENous Freq: RAD ONCE Start Date: 01/13/14 No administration times (back 96 hours, ahead 96 hours). ------sodium chloride (NS) flush 5-10 mL #[id number] Admin Amount: 5-10 mL Ordered Dose: 5-10 mL Route: IntraVENo us Freq: RAD ONCE Start Date: 01/13/14 No administration times (back 96 hours, ahe ad 96 hours). ------sodium chloride (NS) 0.9 % flush #[id number] Ordered Dose: Route: Freq: Start Date: 01/13/14 No administration times (back 96 hours, ahead 96 hours). ------morphine injection 2 mg #[id number] Admin Amount: 1 mL = 2 mg of 2 mg/mL Ordered Dose: 2 mg Route: IntraVENous Freq: NOW Start Date: 03/13/15 No administration t imes (back 96 hours, ahead 96 hours). ------influenza vaccine (4 yr+)(PF) (FLUCELVAX Q UAD) injection 0.5*#[id number] Admin Amount: 0.5 mL Ordered Dose: 0.5 mL Route: Int raMUSCular Freq: PRIOR TO DISCHARGE Start Date: 03/30/16 No administration times (back 9 6 hours, ahead 96 hours). ------oxyCODONE-acetam inophen (PERCOCET) 5-325 mg per tablet 1 Tab #[id number] Admin Amount: 1 Tab Ordered Dose: 1 Tab Route: Oral Freq: NOW Start Date: 09/07/17 No administration times (back 96 hours, ahe ad 96 hours). ------barium sulfate (READICAT) 2.1 % (w/v), 2.0 % (w/w) oral suspension 9*#[id number] Admin Amount: 900 mL Ordered Dose: 900 mL Route: Oral Delgado q: RAD ONCE Start Date: 10/15/17 No administration times (back 96 hours, ahe ad 96 hours). ------iopamidol (ISOVUE 300) 61 % contrast injection 100 mL #[id number] Admin Amount: 100 mL Ordered Dose: 100 mL Route: Int raVENous Freq: RAD ONCE Start Date: 10/15/17 No administration times (back 96 hours, ahead 96 hours).Maxwell Bray MR#: [id number] * Rm: LF08-54Um: 5' 1 0" Wt: 280 lb Code: Prior Iso:Diagnosis:Allergies: No Known Allergies -------- Current as of: 08/11/19 0142 GI=Given -------risperiDONE (RisperDAL m-tabs) disintegrating tablet 1 mg #[id number] Admin Amount: 1 Tab (1 x 1 mg Tab) Ordered Dose: 1 mg Route: Oral Freq: ONCE Start Date: 12/24/17 No administration times (back 96 hours, ahead 96 hours). ------ALPRAZolam (XANAX) tablet 2 mg #[id number] Admin Amount: 4 Tab (4 x 0.5 mg Tab) Ordered Dose: 2 mg Route: Oral Freq: NOW Start Date: 12/24/17 No administration times (back 96 hours, ahead 96 hours). ------lamoTRIgine (LaMICtal) tablet 100 mg #[id number] Admin Amount: 1 Tab (1 x 100 mg Tab) Ordered Dose: 100 mg Route: Oral Freq: ONCE Start Date: 12/24/17 No administration times (back 96 hours, ahead 96 hours). ------OLANZapine (ZyPREXA zydis) disintegrating tablet 5 mg #[id number] Admin Amount: 1 Tab (1 x 5 mg Tab) Ordered Dose: 5 mg Route: Oral Freq: ONCE Start Date: 12/25/17 No administration times (back 96 hours, ahead 96 hours). ------LORazepam (ATIVAN) tablet 2 mg #[id number] Admin Amount: 4 Tab (4 x 0.5 mg Tab) Ordered Dose: 2 mg Route: Oral Freq: NOW Start Date: 12/25/17 No administration times (back 96 hours, ahead 96 hours). ------LORazepam (ATIVAN) injection 1 mg #[id number] Admin Amount: 0.5 mL = 1 mg of 2 mg/mL Ordered Dose: 1 mg Route: IntraVENous Freq: NOW Start Date: 12/25/17 No administration ti mes (back 96 hours, ahead 96 hours). ------barium sulfate (EZ PAQUE) 96 % (w/w) contrast suspensio n 176 g #[id number] Admin Amount: 176 g Ordered Dose: 176 g Route: Oral Delgado q: RAD ONCE Start Date: 08/02/18 No administration times (back 96 hours, ahe ad 96 hours). ------barium sulfate (EZ PAQUE) 96 % (w/w) contrast suspensio n 176 g #[id number] Admin Amount: 176 g Ordered Dose: 176 g Route: Oral Delgado q: RAD ONCE Start Date: 08/02/18 No administration times (back 96 hours, ahe ad 96 hours).Maxwell Bray MR#: [id number] * Rm: RU80-53Wh: 5' 10" Wt: 280 lb Code: Prior Iso:Diagnosis:Allergies: No Known Allergies -------- Current as of: 08/11/19 0142 GI=Given -------aspirin chewable tablet 162 mg #[id number] Admin Amount: 2 Tab (2 x 81 mg Tab) Ordered Dose: 162 mg Route: Oral Freq: NOW Start Date: 08/10/19 Administration times (laura k 96 hours, ahead 96 hours): 08/11/19: 0020GI ED Current OP MedicationsVRAYL AR 6 mg capsuleSig:Dispense Amount:Start Date:07/07/2019End Date:Doc. Provider: ProviderDanilo cyclobenzaprine (FLEXERIL) 10 mg tabletSig:Take 1 Tab [...] visit in 1 dayComments:Contact Info:Chino Rodriguez [address] [phone]-qw With:Detail s:Comments:As needed, If symptoms worsenContact Info: Name Value Range Interpretation Code Description Data Melani rce(s) Supporting Document(s ) ID Date Data Source [id number] 08/11/2019 01:40:37 AM EST [facility] I have reviewed discharge instructions w ith the patient and spouse. The patientand spouse verbalized understanding.\\ Name Value Range Interpretation Code Description Data Melani rce(s) Supporting Document(s ) ID Date Data Source [id number] 08/16/2019 06:35:29 AM EST [facility] Name Value Range Interpretation Description Data Sup porting Code Source(s) Document(s ) Service comment [facility] Bacteria [facility] - Good identified in [facility] specimen by Culture ID Date Data Source [id number] 08/16/2019 06:35:28 AM EST [facility] Name Value Range Interpretation Description Data Sup porting Code Source(s) Document(s ) Service comment [facility] Bacteria [facility] - Good identified in [facility] specimen by Culture ID Date Data Source [id number] 08/11/2019 12:56:01 AM EST [facility] Name Value Range Interpretation Description Data Sup porting Code Source(s) Document(s ) Influenza virus NEG [facility] - Good A Ag [Presence] [facility] in [facility] by Immunoassay Influenza virus NEG [facility] - Good B Ag [Presence] [facility] in [facility] by Immunoassay IMMUNOCHROMATOGRAPHIC MEMBRANE ASSAYResu lt: Negative for Influenza A and BNote: A negative result does not exclude an infl uenza virus infection, including H1N1. If more conclusive testing is desired, foll ow-up confirmatory testing is warranted. Specimen source [Identifier] of Unspecified [facility] specimen ID Date Data Source [id number] 08/11/2019 01:35:58 AM EST [facility] Name Value Range Interpretation Description Data Sup porting Code Source(s) Document(s ) Prothrombin 9.6 sec 9.4-11.1 [facility] - Good time (PT) [facility] INR in 0.9 0.8-1.2 [facility] - Good Platelet poor [facility] plasma by [facility] Coagulation assay ID Date Data Source [id number] 08/11/2019 01:35:58 AM EST [facility] Value Range Interpretation Description Data Sup porting Code Source(s) Document(s ) aPTT in 23.1 SEC 21.0-28. [facility] - Good Platelet poor 0 [facility] plasma by [facility] Coagulation assay Therapeutic Range = 42.0-60.0 secs ID Date Data Source [id number] 08/11/2019 01:30:36 AM EST [facility] Value Range Interpretation Description Data Sup porting Code Source(s) Document(s ) Natriuretic 19 pg/mL 0-100 [facility] peptide B [facility] [Mass/volume] Hospital in Serum or Plasma ID Date Data Source [id number] 08/11/2019 01:25:10 AM EST [facility] Value Range Interpretation Code Description Data Supporting Source(s) Document(s ) [place] 0.6-1.2 Below low normal [facility] - Good [Moles/volum [facility] e] in Serum Hospital or Plasma ID Date Data Source [id number] 08/11/2019 01:20:56 AM EST [facility] Value Range Interpretation Code Description Data Melani rce(s) Supporting Document(s ) Fibrin <500 [facility] - Good D-dimer FEU [facility] [Mass/volume] [facility] in Platelet poor plasma (NOTE)Combination of a D-Dimer result wi thin the reference range and a lowclinical pretest probability has good negative pr edictive value fordeep venous thrombosis.If results are utilized for VTE evaluation, <500 ng/ml is consideredto be negative. ID Date Data Source [id number] 08/11/2019 01:09:42 AM EST [facility] - Good [facility] Name Value Range Interpretation Description Data Sup porting Code Source(s) Document(s ) Lactate 1.7 0.4-2.0 [facility] - Good [Moles/volu MMOL/L [facility] sc] in Hospital Serum or Plasma ID Date Data Source [id number] 08/11/2019 01:09:42 AM EST [facility] - [facility] Name Value Range Interpretation Description Data Sup porting Code Source(s) Document(s ) Troponin 0.00-0.05 [facility] - Good I.cardiac [facility] [Mass/volume Hospital ] in Serum or Plasma [...] to 1.50 ng/mL ID Date Data Source [id number] 08/11/2019 01:09:42 AM EST [facility] Name Value Range Interpretation Description Data Sup porting Code Source(s) Document(s ) Sodium 140 136-145 [facility] - Good [Moles/volume] mmol/L [facility] in Serum or Hospital Plasma Potassium 3.9 3.5-5.1 [facility] - Good [Moles/volume] mmol/L [facility] in Serum or Hospital Plasma Chloride 113 98-107 Above high normal [facility] - Good [Moles/volume] mmol/L [facility] in Serum or Hospital Plasma Carbon 21 21-32 [facility] - Good dioxide, total mmol/L [facility] [Moles/volume] Hospital in Serum or Plasma Anion gap in 10 10-20 [facility] - Good Serum or mmol/L [facility] Plasma Hospital Glucose 90 mg/dL 74-106 [facility] - Good [Mass/volume] [facility] in Serum or Hospital Plasma Urea nitrogen 18 mg/dL 7-18 [facility] - Good [Mass/volume] [facility] in Serum or Hospital Plasma Creatinine 0.78 0.70-1.3 [facility] - Good [Mass/volume] mg/dL 0 [facility] in Serum or Hospital Plasma Glomerular >60 [facility] - Good filtration [facility] rate/1.73 sq M Hospital predicted among blacks [Volume Rate/Area] in Serum or Plasma by Creatinine-bas ed formula (MDRD) Glomerular >60 [facility] - Good filtration [facility] rate/1.73 sq M Hospital predicted among non-blacks [Volume Rate/Area] in Serum or Plasma by Creatinine-bas ed formula (MDRD) (NOTE)Estimated GFR is calculated using the Modification of Diet in RenalDisease (MDRD) Study equation, reported for both Americans(GFRAA) and non- Americans (GFRNA), and normalized to 1.7 3i3dsho surface area. The physician must decide which [...] normal [facility] - Good Serum or Plasma [facility] Hosp ital Bilirubin.total 0.5 mg/dL 0.2-1.0 [facility] - Good [Mass/volume] in Serum or [facility] Plasma Alanine aminotransferase 29 U/L 13-61 [facility] - Good [Enzymatic activity/volume] [facility] in Serum or Plasma Aspartate aminotransferase 18 U/L 15-37 [facility] - Good [Enzymatic activity/volume] [facility] in Serum or Plasma by With P-5'-P Alkaline phosphatase 98 U/L 45-117 [facility] - G ood [Enzymatic activity/volume] [facility] in Serum or Plasma Protein [Mass/volume] in 6.7 g/dL 6.4-8.2 [facility] - Good Serum or Plasma [facility] H[facility] ital Albumin [Mass/volume] in 3.4 g/dL 3.5-4.7 Below low normal [facility] - Good Serum or Plasma by [facility] ospital Bromocresol purple (BCP) dye binding method Globulin [Mass/volume] in 3.3 g/dL 1.7-4.7 [facility] - Good Serum by [facility] Albumin/Globulin [Mass 1.1 0.7-2.8 [facility] - Good Ratio] in Serum or Plasma [facility] ID Date Data Source [id number] 08/11/2019 01:09:42 AM EST [facility] - Good [facility] Name Value Range Interpretation Description Data Sup porting Code Source(s) Document(s ) Magnesium 2.1 mg/dL 1.6-2.6 [facility] - Good [Mass/volume] [facility] in Serum or Hospital Plasma ID Date Data Source [id number] 08/11/2019 01:01:18 AM EST [facility] Name Value Range Interpretation Description Data Sup porting Code Source(s) Document(s ) Leukocytes 7.7 K/uL 4.8-10.6 [facility] - [#/volume] in Good Blood by [facility] Automated count Hospital Erythrocytes 4.93 4.70-6.0 [facility] - [#/volume] in M/uL 0 Good Blood by [facility] Automated count Hospital Hemoglobin 14.9 14.0-18. [facility] - [Mass/volume] in g/dL 0 Good Blood [facility] Hematocrit 44.4 % 42.0-52. [facility] - [Volume 0 Good Fraction] of [facility] Blood by Hospital Automated count Erythrocyte mean 90.1 FL 81.0-94. [facility] - corpuscular 0 Good volume [Entitic [facility] volume] by Hospital Automated count Erythrocyte mean 30.2 PG 27.0-35. [facility] - corpuscular 0 Good hemoglobin [facility] [Entitic mass] [facility] by Automated count Erythrocyte mean 33.6 30.7-37. [facility] - corpuscular g/dL 3 Good hemoglobin [facility] [Mass/volume] by Automated count Erythrocyte 12.5 % 11.5-14. [facility] - distribution 0 Good width [Ratio] by [facility] Automated count Hospital Platelets 189 K/uL 130-400 [facility] - [#/volume] in Good Blood by [facility] Automated count Hospital Platelet mean 9.0 FL 9.2-11.8 Below low normal [facility] - volume [Entitic Good volume] in Blood [facility] by Automated Hospital count Nucleated 0.0 PER 0 [facility] - erythrocytes/100 100 WBC Good leukocytes [facility] [Ratio] in Blood [facility] Nucleated 0.00 0.0-0.01 [facility] - erythrocytes K/uL Good [#/volume] in [facility] Segmented 59 % 48.0-72. [facility] - neutrophils/100 0 Good leukocytes in [facility] Lymphocytes/100 29 % 18.0-40. [facility] - leukocytes in 0 [facility] Monocytes/100 7 % 2.0-12.0 [facility] - leukocytes in [facility] Eosinophils/100 5 % 0.0-7.0 [facility] - leukocytes in [facility] Basophils/100 1 % 0.0-3.0 [facility] - leukocytes in [facility] Immature 0 % 0-0.5 [facility] - granulocytes/100 Good leukocytes in [facility] Blood by Hospital Automated count Segmented 4.6 K/UL 2.3-7.6 [facility] - neutrophils Good [#/volume] in [facility] Lymphocytes 2.2 K/UL 0.9-4.2 [facility] - [#/volume] in [facility] Monocytes 0.5 K/UL 0.1-1.7 [facility] - [#/volume] in [facility] Eosinophils 0.4 K/UL 0.0-1.0 [facility] - [#/volume] in [facility] Basophils 0.1 K/UL 0.0-0.4 [facility] - [#/volume] in [facility] Immature 0.0 K/UL 0.0-0.17 [facility] - granulocytes Good [#/volume] in [facility] Blood by Hospital Automated count Differential [facility] - cell count Good method [facility] Procedure Social History Code Duration Value Status Description Data Source(s ) Alcohol intake 01/08/2020 Current completed Current [facility] 12:00:00 AM EDT non-drinker non-drinker of [employer] alcohol (finding) [employer] (finding) Tobacco use and 01/08/2020 Never used completed Never used [facility] exposure 12:00:00 AM EDT [employer] Smoking 01/08/2020 Never smoker completed Never smoker [facility] 12:00:00 AM EDT [employer] Alcohol intake 12/25/2019 Current completed Current [facility] 12:00:00 AM EDT non-drinker non-drinker of [employer] alcohol (finding) [employer] (finding) Tobacco use and 12/25/2019 Never used completed Never used [facility] exposure 12:00:00 AM EDT [employer] Smoking 12/25/2019 Never smoker completed Never smoker [facility] 12:00:00 AM EDT [employer] Alcohol intake 12/12/2019 Current completed Current [facility] 12:00:00 AM EDT non-drinker non-drinker of [employer] alcohol (finding) [employer] (finding) Smoking 12/12/2019 Never smoker completed Never smoker [facility] 12:00:00 AM EDT [employer] Alcohol intake 12/05/2019 Current completed Current [facility] 12:00:00 AM EDT non-drinker non-drinker of [employer] alcohol (finding) [employer] (finding) Tobacco use and 12/05/2019 Never used completed Never used [facility] exposure 12:00:00 AM EDT [employer] Smoking 12/05/2019 Never smoker completed Never smoker [facility] 12:00:00 AM EDT [employer] Alcohol intake 12/01/2019 Current completed Current [facility] 12:00:00 AM EDT non-drinker non-drinker of [employer] alcohol (finding) [employer] (finding) Smoking 12/01/2019 Never smoker completed Never smoker [facility] 12:00:00 AM EDT [employer] Alcohol intake 11/14/2019 Current completed Current [facility] 12:00:00 AM EDT non-drinker non-drinker of [employer] alcohol alcohol (finding) [employer] (finding) Smoking 11/14/2019 Never smoker completed Never smoker [facility] 12:00:00 AM EDT [employer] Alcohol intake 11/10/2019 Current completed Current [facility] 12:00:00 AM EDT non-drinker non-drinker of [employer] of alcohol alcohol (finding) [employer] (finding) Smoking 11/10/2019 Never smoker completed Never smoker [facility] 12:00:00 AM EDT [employer] Alcohol intake 09/06/2019 Current completed Current [facility] 12:00:00 AM EDT non-drinker non-drinker of [employer] alcohol (finding) [employer] (finding) Smoking 09/06/2019 Never smoker completed Never smoker [facility] 12:00:00 AM EDT [employer] Alcohol intake 08/16/2019 Current completed Current [facility] 12:00:00 AM EST non-drinker non-drinker of [employer] alcohol (finding) [employer] (finding) Smoking 08/16/2019 Never smoker completed Never smoker [facility] 12:00:00 AM EST [employer] Alcohol intake 08/10/2019 Current completed Current [facility] 12:00:00 AM EST non-drinker non-drinker of [employer] of alcohol alcohol (finding) [employer] (finding) Smoking 08/10/2019 Never smoker completed Never smoker [facility] 12:00:00 AM EST [employer] Alcohol intake 07/21/2019 Current completed Current [facility] 12:00:00 AM EST non-drinker non-drinker of [employer] alcohol alcohol (finding) [employer] (finding) Smoking 07/21/2019 Never smoker completed Never smoker [facility] 12:00:00 AM EST [employer] Smoking 07/29/2018 Never smoker completed Never smoker [facility] 12:00:00 AM EST [employer] Smoking 07/19/2018 Never smoker completed Never smoker [facility] 12:00:00 AM EST [employer] Smoking 07/11/2018 Never smoker completed Never smoker [facility] 12:00:00 AM EST [employer] [facility] [employer] Vital Signs ID Date Data Source UNK Name Value Range Interpretation Code Description Data Source(s) Oxygen saturation 98 % 98 % [facility] in Arterial blood [employer] by [employer] Body mass index 48.95 kg/m2 48.95 kg/m2 [facility] (BMI) [Ratio] [employer] Body weight 136.533 kg 136.533 kg [facility] [employer] Body height 167 cm 167 cm [facility] [employer] Respiratory rate 12 /min 12 /min [facility] [employer] Body temperature 36.56 May 36.56 May [facility] [employer] Heart rate 102 /min 102 /min [facility] [employer] Diastolic blood 60 mm[Hg] 60 mm[Hg] [facility] pressure [employer] Systolic blood 100 mm[Hg] 100 mm[Hg] [facility] pressure [employer] Diastolic blood 80 mm[Hg] 80 mm[Hg] [facility] pressure [employer] Systolic blood 122 mm[Hg] 122 mm[Hg] [facility] pressure [employer] Respiratory rate 20 /min 20 /min [facility] [employer] Heart rate 70 /min 70 /min [facility] [employer] Diastolic blood 70 mm[Hg] 70 mm[Hg] [facility] pressure [employer] Systolic blood 124 mm[Hg] 124 mm[Hg] [facility] pressure [employer] Respiratory rate 18 /min 18 /min [facility] [employer] Body temperature 36.56 May 36.56 May [facility] [employer] Heart rate 88 /min 88 /min [employer] Diastolic blood 86 mm[Hg] 86 mm[Hg] [facility] pressure [employer] Systolic blood 110 mm[Hg] 110 mm[Hg] [facility] pressure [employer] Oxygen saturation 98 % 98 % [facility] in Arterial blood [employer] by Pulse [employer] Body mass index 47.98 kg/m2 47.98 kg/m2 [facility] (BMI) [Ratio] [employer] Body weight 133.811 kg 133.811 kg [facility] [employer] Body height 167 cm 167 cm [facility] [employer] Respiratory rate 12 /min 12 /min [facility] [employer] Body temperature 36.67 May 36.67 May [facility] [employer] Heart rate 100 /min 100 /min [facility] [employer] Diastolic blood 66 mm[Hg] 66 mm[Hg] [facility] pressure [employer] Systolic blood 102 mm[Hg] 102 mm[Hg] [facility] pressure [employer] Respiratory rate 20 /min 20 /min [facility] [employer] Heart rate 70 /min 70 /min [facility] [employer] Diastolic blood 68 mm[Hg] 68 mm[Hg] [facility] pressure [employer] Systolic blood 120 mm[Hg] 120 mm[Hg] [facility] pressure [employer] Respiratory rate 18 /min 18 /min [facility] [employer] Heart rate 68 /min 68 /min [employer] Diastolic blood 68 mm[Hg] 68 mm[Hg] [facility] pressure [employer] Systolic blood 112 mm[Hg] 112 mm[Hg] [facility] pressure [employer] Respiratory rate 20 /min 20 /min [facility] [employer] Body temperature 36.56 May 36.56 May [facility] [employer] Heart rate 92 /min 92 /min [facility] [employer] Diastolic blood 70 mm[Hg] 70 mm[Hg] [facility] pressure [employer] Systolic blood 110 mm[Hg] 110 mm[Hg] [facility] pressure [employer] Respiratory rate 20 /min 20 /min [facility] [employer] Heart rate 68 /min 68 /min [employer] Diastolic blood 72 mm[Hg] 72 mm[Hg] [facility] pressure [facility] Systolic blood 112 mm[Hg] 112 mm[Hg] [facility] pressure [employer] Respiratory rate 20 /min 20 /min [facility] [employer] Heart rate 82 /min 82 /min [facility] [employer] Diastolic blood 66 mm[Hg] 66 mm[Hg] [facility] pressure [employer] Systolic blood 110 mm[Hg] 110 mm[Hg] [facility] pressure [employer] Respiratory rate 14 /min 14 /min [facility] [employer] Body temperature 36.89 May 36.89 May [facility] [employer] Heart rate 72 /min 72 /min [facility] [employer] Diastolic blood 74 mm[Hg] 74 mm[Hg] [facility] pressure [employer] Systolic blood 128 mm[Hg] 128 mm[Hg] [facility] pressure [employer] Respiratory rate 20 /min 20 /min [facility] [employer] System [facility] Heart rate 68 /min 68 /min [facility] [employer] [facility] Diastolic blood 64 mm[Hg] 64 mm[Hg] [facility] pressure [employer]ingo [facility] Systolic blood 108 mm[Hg] 108 mm[Hg] [facility] pressure [employer]ingo [facility] Respiratory rate 18 /min 18 /min [facility] [employer] [facility] Heart rate 80 /min 80 /min [facility] Diastolic blood 70 mm[Hg] 70 mm[Hg] [facility] pressure [employer] [facility] Systolic blood 98 mm[Hg] 98 mm[Hg] [facility] pressure [employer] [facility] Respiratory rate 20 /min 20 /min [facility] [employer] Body temperature 36.56 May 36.56 May [facility] [employer] [facility] Heart rate 78 /min 78 /min [employer] [facility] Diastolic blood 60 mm[Hg] 60 mm[Hg] [facility] pressure [employer] Systolic blood 110 mm[Hg] 110 mm[Hg] [facility] pressure [employer] Body mass index 48.95 kg/m2 48.95 kg/m2 [facility] Sec ours (BMI) [Ratio] [facility] Body weight 136.533 kg 136.533 kg [facility] [employer] Respiratory rate 18 /min 18 /min [facility] [employer] [facility] Body temperature 36.56 May 36.56 May [facility] [employer] [facility] Heart rate 80 /min 80 /min [facility] Diastolic blood 70 mm[Hg] 70 mm[Hg] [facility] pressure [employer]ingo [facility] Systolic blood 128 mm[Hg] 128 mm[Hg] [facility] pressure [employer] Oxygen saturation 98 % 98 % [facility] in Arterial blood [facility] [employer] by Pulse [employer] Body mass index 48.95 kg/m2 48.95 kg/m2 [facility] (BMI) [Ratio] [employer] Body weight 136.533 kg 136.533 kg [facility] [employer] Body height 167 cm 167 cm [employer] Respiratory rate 14 /min 14 /min [facility] [employer] Body temperature 36.44 May 36.44 May [facility] [employer] Heart rate 98 /min 98 /min [employer] Diastolic blood 60 mm[Hg] 60 mm[Hg] [facility] pressure [employer] Systolic blood 110 mm[Hg] 110 mm[Hg] [facility] pressure [employer] Oxygen saturation 96 % 96 % [facility] in Arterial blood [employer] by Pulse [employer]xim[employer] Respiratory rate 18 /min 18 /min [facility] [employer] Body temperature 36.72 May 36.72 May [facility] [employer] Heart rate 80 /min 80 /min [employer] Diastolic blood 88 mm[Hg] 88 mm[Hg] [facility] pressure [employer] Systolic blood 128 mm[Hg] 128 mm[Hg] [facility] pressure [employer] Body mass index 48.97 kg/m2 48.97 kg/m2 [facility] (BMI) [Ratio] [employer] Body weight 136.578 kg 136.578 kg [facility] [employer] Body height 167 cm 167 cm [employer] Oxygen saturation 98 % 98 % [facility] in Arterial blood [facility] [employer] by Pulse [employer] Body mass index 48.30 kg/m2 48.30 kg/m2 [facility] (BMI) [Ratio] [employer] Body weight 134.718 kg 134.718 kg [facility] [employer] Body height 167 cm 167 cm [employer] Respiratory rate 14 /min 14 /min [facility] [employer] Body temperature 37.33 May 37.33 May [facility] Heart rate 100 /min 100 /min [employer] Diastolic blood 68 mm[Hg] 68 mm[Hg] [facility] pressure [employer] Systolic blood 118 mm[Hg] 118 mm[Hg] [facility] pressure [employer] Oxygen saturation 98 % 98 % [facility] in Arterial blood [facility] [employer] by Pulse oxim[employer] Body mass index 47.49 kg/m2 47.49 kg/m2 [facility] (BMI) [Ratio] [employer] Body weight 132.45 kg 132.45 kg [facility] [employer] Body height 167 cm 167 cm [employer] Respiratory rate 12 /min 12 /min [facility] [employer] Body temperature 36.44 May 36.44 May [facility] [employer] Heart rate 88 /min 88 /min [employer] Diastolic blood 70 mm[Hg] 70 mm[Hg] [facility] pressure [employer] Systolic blood 102 mm[Hg] 102 mm[Hg] [facility] pressure [employer] Oxygen saturation 92 % 92 % [facility] in Arterial blood [facility] [employer] by Pulse oximetry [employer] Body mass index 45.86 kg/m2 45.86 kg/m2 [facility] (BMI) [Ratio] [employer] Body weight 133.811 kg 133.811 kg [employer] Body height 170.8 cm 170.8 cm [employer] Respiratory rate 12 /min 12 /min [facility] [employer] Body temperature 36.67 May 36.67 May [facility] [employer] Heart rate 88 /min 88 /min [employer] Diastolic blood 80 mm[Hg] 80 mm[Hg] [facility] pressure [employer] Systolic blood 120 mm[Hg] 120 mm[Hg] [facility] pressure [employer] Oxygen saturation 95 % 95 % [facility] in Arterial blood [facility] by Pulse oximetry [employer] Respiratory rate 18 /min 18 /min [facility] [employer] Body temperature 36.44 May 36.44 May [facility] [employer] Heart rate 100 /min 100 /min [employer] Diastolic blood 80 mm[Hg] 80 mm[Hg] [facility] pressure [employer] Systolic blood 123 mm[Hg] 123 mm[Hg] [facility] pressure [employer] Body mass index 46.99 kg/m2 46.99 kg/m2 [facility] (BMI) [Ratio] [employer] Body weight 136.079 kg 136.079 kg [facility] [employer] Body height 170.2 cm 170.2 cm [employer] Oxygen saturation 96 % 96 % [facility] in Arterial blood [facility] [employer] by Pulse [employer] Body mass index 45.55 kg/m2 45.55 kg/m2 [facility] (BMI) [Ratio] [employer] [facility] Body weight 132.904 kg 132.904 kg [employer] Body height 170.8 cm 170.8 cm [employer] Respiratory rate 14 /min 14 /min [facility] [employer] Body temperature 35.89 May 35.89 May [facility] [employer] Heart rate 96 /min 96 /min [employer] Diastolic blood 78 mm[Hg] 78 mm[Hg] [facility] pressure [employer] Systolic blood 116 mm[Hg] 116 mm[Hg] [facility] pressure [employer] Oxygen saturation 92 % 92 % [facility] in Arterial blood [facility] by Pulse oximetry System [employer] Respiratory rate 15 /min 15 /min [facility] [employer] Heart rate 96 /min 96 /min [employer] Diastolic blood 86 mm[Hg] 86 mm[Hg] [facility] pressure [employer] Systolic blood 121 mm[Hg] 121 mm[Hg] [facility] pressure [employer] Body mass index 40.18 kg/m2 40.18 kg/m2 [facility] (BMI) [Ratio] [employer] Body weight 127.007 kg 127.007 kg [facility] [employer] Body height 177.8 cm 177.8 cm [employer] Body temperature 36.72 May 36.72 May [facility] [employer] Body temperature 36.33 May 36.33 May [facility] [employer] Oxygen saturation 96 % 96 % [facility] in Arterial blood [facility] [employer] by Pulse oximetry [employer] Respiratory rate 21 /min 21 /min [facility] [employer] Heart rate 85 /min 85 /min [employer] Diastolic blood 88 mm[Hg] 88 mm[Hg] [facility] pressure [employer] Systolic blood 155 mm[Hg] 155 mm[Hg] [facility] pressure [employer] Body mass index 40.18 kg/m2 40.18 kg/m2 [facility] (BMI) [Ratio] [employer] Body weight 127.007 kg 127.007 kg [employer] Body height 177.8 cm 177.8 cm [employer] Oxygen saturation 98 % 98 % [facility] in Arterial blood [facility] by Pulse oximetry [employer] Body mass index 44.66 kg/m2 44.66 kg/m2 [facility] (BMI) [Ratio] RABT [facility] Body weight 128.368 kg 128.368 kg [employer] Body height 169.5 cm 169.5 cm [employer] Respiratory rate 12 /min 12 /min [facility] [employer] Body temperature 36.28 May 36.28 May [facility] [employer] Heart rate 68 /min 68 /min [employer] Diastolic blood 80 mm[Hg] 80 mm[Hg] [facility] pressure [employer] Systolic blood 122 mm[Hg] 122 mm[Hg] [facility] pressure [employer] Oxygen saturation 96 % 96 % [facility] in Arterial blood [facility] by Pulse oximetry [employer] Diastolic blood 53 mm[Hg] 53 mm[Hg] [facility] pressure [employer] Systolic blood 107 mm[Hg] 107 mm[Hg] [facility] pressure [employer] Respiratory rate 17 /min 17 /min [facility] [employer] Body temperature 37.11 May 37.11 May [facility] [employer] Heart rate 58 /min 58 /min [facility] [employer] Body mass index 38.06 kg/m2 38.06 kg/m2 [facility] (BMI) [Ratio] [employer] Body weight 110.224 kg 110.224 kg [facility] [employer] Body height 170.2 cm 170.2 cm [facility] [employer] [facility] Oxygen saturation 98 % 98 % [facility] in Arterial blood Bel[facility] [employer] by Pulse [employer] Body mass index 37.71 kg/m2 37.71 kg/m2 [facility] (BMI) [Ratio] [employer] Body weight 108.41 kg 108.41 kg [facility] [employer] [facility] Body height 169.5 cm 169.5 cm [facility] [employer] [facility] Respiratory rate 16 /min 16 /min [facility] [employer] Body temperature 36.44 May 36.44 May [facility] [employer] [facility] Heart rate 74 /min 74 /min [facility] [employer] Diastolic blood 70 mm[Hg] 70 mm[Hg] [facility] pressure [employer] Systolic blood 94 mm[Hg] 94 mm[Hg] [facility] pressure [employer] [facility] Oxygen saturation 98 % 98 % [facility] in Arterial blood [employer] by Pulse oximetry [employer] Respiratory rate 17 /min 17 /min [facility] [employer] Body temperature 36.33 May 36.33 May [facility] [employer] [facility] Heart rate 87 /min 87 /min [facility] [facility] Diastolic blood 75 mm[Hg] 75 mm[Hg] [facility] pressure [employer] Systolic blood 121 mm[Hg] 121 mm[Hg] [facility] pressure [employer] [facility] Body mass index 39.94 kg/m2 39.94 kg/m2 [facility] (BMI) [Ratio] [employer] [facility] Body weight 108.863 kg 108.863 kg [facility] [employer] Body height 165.1 cm 165.1 cm [facility] [employer] Patient Treatment Plan of Care Planned Activity Planned Date Details Description Data Source (s) Propranolol Hydrochloride 01/08/2020 Francisco Javier [facility] 10 MG Oral Tablet 12:00:00 AM [employer] Clonazepam 0.5 MG Oral 12/25/2019 [facility] Tablet 12:00:00 AM [employer] Ibuprofen 200 MG Oral [...] 12:00:00 AM EDT [facility] [place] Carbonate 300 MG 11/30/2019 [facility] Oral Capsule 12:00:00 AM EDT [facility] [employer] Amitriptyline Hydrochloride 11/12/2019 [facility] 100 MG Oral Tablet 12:00:00 AM EDT [employer] Docusate Sodium 100 MG Oral 11/04/2019 [facility] Capsule 12:00:00 AM EDT [facility] [employer] Bisacodyl 5 MG Delayed 11/03/2019 [facility] Release Oral Tablet 12:00:00 AM EDT [email or web address] Bisacodyl 5 MG Delayed 10/31/2019 [facility] Release Oral Tablet 01:50:17 PM EDT [email or web address] [facility] Acetaminophen 325 MG Oral 10/29/2019 [facility] Tablet 02:44:40 PM EDT [employer] sodium chloride (NS) flush 10/29/2019 [facility] 5-40 mL 11:01:53 AM EDT [facility] 24 HR Bupropion 10/17/2019 [facility] Hydrochloride 150 MG 12:00:00 AM EDT [employer] [facility] [employer] Extended Release Oral Tablet 24 HR Bupropion 10/17/2019 [facility] Hydrochloride 300 MG 12:00:00 AM EDT [email or web address] Extended Release Oral Tablet Vraylar 3 mg capsule 09/03/2019 [facility] 12:00:00 AM EDT [facility] Amitriptyline Hydrochloride 08/20/2019 [facility] 150 MG Oral Tablet 12:00:00 AM EST [facility] [place] Carbonate 150 MG 08/16/2019 [facility] [...] [facility] Clonazepam 2 MG Oral Tablet [facility] cariprazine (Vraylar) 6 mg B on [facility] 24 HR Bupropion [facility] Hydrochloride 300 MG [facility] Extended Release Oral Tablet fluoxetine HCl (PROZAC PO) B on [facility] ziprasidone 80 MG Oral [facility] valacyclovir 500 MG Oral [facility] Tablet [Valtrex] [facility]
[2020-03-29 06:51] VITALS: TEMP 97.5
[2020-03-29] MEDS ORDERED: KETAMINE HCL 500 MG/10 ML VIAL ONE (07:35)
[2020-03-29] MEDS ORDERED: PROPOFOL 20 ML ONE (07:52)
[2020-03-29 09:06] VITALS: BP 106/61; PULSE 77
== END 2020-03-29 09:15 | disposition home or self-care (01) ==
LOC: FECT 06:20
PROVIDERS: ATTEND Psychiatry & Neurology Psychiatry
PROC: GZB4ZZZ Other Electroconvulsive Therapy (ICD-10-PCS; principal; 2020-03-29 07:30)
DX: F32.9 Major depressive disorder, single episode, unspecified (principal)
CPT/HCPCS: 90870; 94760; U0003

== ENCOUNTER 2020-04-01 06:56 | Day surgery (SDC) | payer OTHER ==
--- OUTSIDE RECORDS SUMMARY | 2020-03-25 18:57 | XMS ---
:1970 Author Organization [facility] Care Team Providers Name Role Phone [...] is protected by Article 27-F of the [place] State Public Health law. If you continue you may haveaccess to information: Regarding HIV / AIDS; Provided by facilities licensed or operated by the [facility] Office of Mental Health; or Provided by the [facility] Office for People With Developmental Disabilities. If such information is present, then the following [facility] mandated warning applies: This information has [...] law may result in a fine or prison sentence or both. A general authorization for the release of medical or other information is NOT sufficient authorization for further disclosure. Encounters Encounter Providers Location Date Indications Data Source(s ) Outpatient 01/08/2020 03:30:00 [facility] Bela PM EDT - 01/12/2020 [facility] 10:23:35 AM EDT Patient discharged. Attender: MARIYA CATHERINE 01/01/2020 12:00:00 AM [facility] Attender: MAURICIO 12/30/2019 12:00:00 AM [facility] Attender: MARIYA CATHERINE 12/29/2019 12:00:00 AM [facility] 12[facility]2019 04:00:00 PM [facility] 06:48:40 [facility] PM EDT Patient discharged. OL 12[facility]25[facility] 11[facility]59:00 PM EDT Attender: MARIYA 12/25/2019 12:00:00 AM [facility] Attender: SUSI LONGO 12/25/2019 12:00:00 AM [facility] [place] Attender: MAURICIO 12/24/2019 12:00:00 AM [facility] Attender: MARIYA 12/22/2019 12:00:00 AM [facility] Attender: SUSI LONGO 12/22/2019 12:00:00 AM [facility] [place] Attender: MAURICIO 12/19/2019 12:00:00 AM [facility] Attender: MARIYA 12/18/2019 12:00:00 AM [facility] Attender: GLADIS FUNEZ 12/18/2019 12:00:00 AM [facility] Attender: SUSI LONGO 12/17/2019 12:00:00 AM [facility] Attender: MAURICIO 12/16/2019 12:00:00 AM [facility] Attender: MARIYA 12/15/2019 12:00:00 AM [facility] Attender: XANDER COLBERT 12/13/2019 12:00:00 AM [facility] Outpatient 12/12/2019 12:00:00 PM Francisco Javier n [facility] EDT - 12/12/2019 [facility] 01:20:23 PM EDT Patient discharged. Attender: ROSSI 12/08/2019 05:55:36 [facility] - 01/02/2020 [facility] 12:00:00 AM EDT System In c Inpatient Admitter: RITIKA 12/05/2019 12:00:00 [facility] AM EDT - 12/08/2019 [facility] 03:44:00 PM EDT General Weakness Patient discharged. Outpatient 12/05/2019 12:00:00 AM EDT [facility] Outpatient 12/01/2019 03:45:00 PM EDT - [facility] 12/01/2019 05:01:16 PM EDT Inc Patient discharged. Outpatient 11/14/2019 01:00:00 PM EDT - [facility] 11/18/2019 11:56:43 AM EDT System Inc Patient discharged. Outpatient 11/10/2019 09:00:00 AM EDT - [facility] 11/10/2019 04:44:05 PM EDT System Inc Patient discharged. Inpatient Admitter: RITIKA CANAS 10/29/2019 12:00:00 AM let hargic [facility] EDT - 11/03/2019 [facility] 04:02:00 PM EDT lethargic Patient discharged. Outpatient 09/15/2019 08:22:58 AM EDT [facility] - 09/15/2019 11:59:00 PM Hospital EDT Outpatient 09/10/2019 04:00:00 PM EDT [facility] Outpatient 09/04/2019 03:15:00 PM EDT [facility] Outpatient 08/19/2019 07:31:00 AM EST [facility] ([facility]) Outpatient 08/18/2019 06:35:00 AM EST [facility] ([facility]) Outpatient 08/17/2019 07:16:00 AM EST [facility]EXTGEN ([facility]) Emergency 08/16/2019 12:00:00 AM EST Shortness of Breath [facility] - 08/16/2019 10:45:00 PM Hospital EST Shortness of Breath Patient discharged. Outpatient 08/11/2019 12:05:00 AM EST [facility] Emergency 08/10/2019 12:00:00 AM EST - Chest P ain [facility] 08/11/2019 01:42:00 AM EST Hospital Chest Pain Patient discharged. Outpatient 07/21/2019 04:15:00 PM EST - [facility] 07/22/2019 10:51:43 AM EST System Inc Patient discharged. Immunizations Vaccine Date Status Description Data Source(s) New in 2012. 09/04/2019 completed Influenza 09/04/2019 [facility] IIV4 12:00:00 AM EDT Vaccine (Quad) [facility] IIV3. This is one 07/19/2018 completed Influenza 07/19/2018, [facility] of two codes 12:00:00 AM EST Vaccine 04/30/2014 Bela replacing CVX 15, He alth which is being [employer] retired. Influenza, 04/01/2016 completed Influenza 04/01/2016 [facility] injectable, MDCK, 12:00:00 AM EDT Vaccine (Quad) [facility] preservative [facility] quadrivalent Tdap 12/11/2014 completed Tdap 12/11/2014 [facility] 12:00:[address] AM [address] [facility] [employer] [facility] IIV3. This is one 04/30/2014 completed Influenza 07/19/2018, [facility] of two codes 12:00:00 AM EST Vaccine 04/30/2014 Bela replacing CVX 15, He alth which is being [employer] retired. RAMAKRISHNA 06/12/2013 completed Influenza 06/12/2013 [facility] 12:00:00 AM EST Vaccine Moira ity (Trivalent) [facility] Medications Medication Brand Start Product Dose Route Administrative Pharmacy [facility] Indications Reaction Description Data Name Date Form Instructions Instructions Source(s) Propranolol propra 10 mg Oral active essential T stephanie 1 Tab Bon Hydrochlori noloL 2019 tremor by mouth S ecours de 10 MG (BETO 12:00: three (3) Ch arity Oral Tablet AL) 10 00 AM times maty [email or web address] propranoloL mg EDT Indications: System Inc [...] Tablet tablet 5 mg EDT dose (after [facility] OLANZapine last Health (ZyPREXA) modification) S ystem tablet 5 mg on [employer] 12/09/19 at 0900, Until Discontinued Medication [...] on Sun Bela OLANZapine mg 12/07/[address] [facility] (ZyPREXA) 1400, Until Sys tem tablet 2.5 Discontinued I nc mg Medication administered onsite [employer] lithium 12/07/2019 300 Oral active 300 mg , Oral, Bon Carbonate carbonate SR 02:00:00 PM mg 2 TIMES DAILY, [facility] 300 MG (LITHOBID) EDT First dose o n Bela Extended tablet 300 Sun 0 at [facility] Release Oral mg 1400, Until System Tablet Discontinued Inc lithium carbonate SR (LITHOBID) tablet 300 mg Medication administered onsite Losartan losartan 12/07/2019 50 Oral active 50 m g, Oral, Bon Potassium 50 (COZAAR) 01:00:00 PM mg D AILY, [facility] MG Oral tablet 50 EDT dose on Sun Bela Tablet mg 12/07/19 at [facility] losartan 1300, Until Syst em (COZAAR) Discontinued Inc tablet 50 mg Medication administered onsite furosemide 76497-085-20 12/07/2019 20 IntraVENous complete d 20 mg, [...] 12/13/19 at 0900 Medication administered onsite furosemide 03949-037-01 12/06/2019 20 IntraVENous complete d edema 20 [...] il mg Discontinued Medication administered onsite 0.9% 4033-8427-87 12/05/2019 100 IntraVENous aborted 100 mL/hr, at [...] mg tablet Inc Shared psychotic disorder (HCC) [facility] lithium 11/30/2019 aborted Bon Carbonate 300 carbonate [...] (DULCOLAX) 5 Inc mg EC tablet cariprazine [id number] 11/01/2019 6 mg Oral active 6 m [...] t dose on Bela hydrocortisone 11/01/19 at [facility] (HYTONE) 2.5 % 1800, Unti l System ointment Discontinued Inc Medication administered onsite Docusate docusate 10/31/2019 200 Oral active 200 mg, Oral, Bon Sodium 100 sodium 02:00:00 PM mg DAILY , [facility] MG Oral (COLACE) EDT dose on Sun C harity Capsule capsule 200 10/31/19 at [facility] docusate mg 1400, Until Syst [...] haloperidoL tablet 5 mg EDT ONCE, 1 [facility] (HALDOL) dose, [facility] tablet 5 mg Denise System 10/30/19 [facility] at 2100 Medication administered onsite amitriptyline 10/30/2019 150 mg Oral active 1 50 mg, Oral, Bon (ELAVIL) tablet 09:00:00 PM EV AN BEDTIME, [facility] 150 mg EDT First dose on [facility] ity Denise 10/30/19 at [facility] 2100, Until System I nc Discontinued Medication administered onsite Haloperidol 2 haloperidoL 10/30/2019 2 mg Oral aborted 2 mg, Oral, Bon MG Oral (HALDOL) 08:01:20 PM EVERY 6 [facility] Tablet tablet 2 mg EDT HOURS Ch arity haloperidoL NEEDED, [facility] h (HALDOL) Starting Denise Sys tem tablet 2 mg 10/30/19 at [facility] 2000, Until 10/31/19 at 2043, Psychosis, Agitation Medication administered onsite [employer] lithium 10/30/2019 300 Oral active 300 mg , Oral, Bon Carbonate carbonate 12:00:00 PM mg 2 T IMES DAILY, [facility] 300 MG Oral tablet 300 EDT First d ose on Bela Tablet mg Denise 10/30/19 at [facility] lithium 1200, Until Syste m carbonate Discontinued In c tablet 300 mg Medication administered onsite Clonazepam 1 clonazePAM 10/30/2019 1 mg Oral active 1 mg, Oral, 2 Bon MG Oral (KlonoPIN) 12:00:00 PM TIME S DAILY, [facility] Tablet tablet 1 mg EDT First dose on [facility] clonazePAM [facility] 10/30/19 at [facility] (KlonoPIN) 1200, Until Sy stem tablet 1 mg Discontinued [facility] Medication administered onsite 0.9% 3618-5600-47 10/29/2019 100 IntraVENous aborted 100 mL/hr, at Bon sodium 02:55:00 PM mL/h 100 mL/hr, [facility] chloride EDT IntraVENous, Jagruti rity infusion CONTINUOUS, [facility] Starting Wed System 10/29/19 at [facility] 1455, Until 11/01/19 at 1446 Medication administered onsite 0.4 ML enoxaparin 10/29/2019 40 SubCUTAneous active 40 mg, Bon Enoxaparin (LOVENOX) 02:55:00 PM mg Gallardo bCUTAneous, [facility] sodium 100 injection 40 EDT EVERY 24 Bela MG/ML mg HOURS, [facility] Prefilled dose on Sun Sys tem Syringe 10/29/19 at [facility] enoxaparin 1455, Until (LOVENOX) Discontinued injection 40 mg Medication administered onsite Acetaminophen acetaminophen 10/29/2019 650 Oral active 650 mg, Oral, Bon 325 MG Oral (TYLENOL) 02:44:40 PM mg E VERY 4 HOURS [facility] Tablet tablet 650 mg EDT NEEDED , Bela acetaminophen Starting [facility] (TYLENOL) [facility] mg 1444, Until Inc Discontinued, Mild Pain, Fever Medication administered onsite sodium 98991-175-25 10/29/2019 mL IntraVENous active 5-40 mL, Bon chloride 02:00:00 PM IntraVENo us, [facility] (NS) flush EDT EVERY 8 Charit y 5-40 mL HOURS, [facility] dose on Sun System 10/29/19 at Inc 1400, Until Discontinued Medication administered onsite sodium 12395-993-43 10/29/2019 mL IntraVENous active 5-40 mL, Bon [...] XL) 150 mg tablet Vraylar 3 mg 45260-408-97 09/03/2019 6 Oral aborted depre ssion Take [...] EST NOW, 1 Bela chewable tablet dose, [facility] 162 mg 08/16/19 System at 2103 Inc Medication administered onsite famotidine 08/16/2019 20 IntraVENous aborted 20 mg, Bon (PF) (PEPCID) 09:02:00 PM mg Intr aVENous, [facility] 20 mg in 0.9% EST EVERY 12 Ch arity sodium HOURS, [facility] chloride 10 dose on Sat S ystem mL injection 08/16/[address] [facility] 2102, Until Discontinued Medication administered onsite methylPREDNISolone 166876 08/16/2019 125 IntraVENous comple hyun 125 mg, Bon (PF) (Solu-MEDROL) 09:02:00 PM mg IntraVENous, [facility] injection 125 mg EST NOW, 1 d ose, Bela 08/16/19 Health at 2102 System Inc Medication administered onsite 0.9% 5583-6637-99 08/16/2019 1000 IntraVENous completed 1,000 mL, at [...] mg tablet for 3 System days. Inc Gustav[facility] lithium 08/16/2019 2 Oral active Take 2 [...] back pain due to trauma VRAYLAR 6 21155-745-46 07/07/2019 6 mg Oral aborted Bipolar Take [...] System DAILY Inc NEEDED FOR ANXIETY cariprazine 761009 6 mg Oral aborted Take 6 B [...] mg by [facility] clonazePAM mg tablet mouth Jagruit rity (KLONOPIN) 2 mg two (2) H [...] Boland Inform ation relationship to boland [facility] [id number] [facility] [id number] [facility] [id number] [facility] HMO [id number] [facility] Commerical [id number] MERGED [facility] [id number] [facility] [id number] 900 HEALTH PLAN MERGED [facility] [id number] PLAN [facility] [id number] 900 HEALTH PLAN POLO [id number] POLO [id number] CIGNA O [id number] MERGED [facility] PPO [id number] [place] 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 [id number] [facility] [id number] 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 [id number] COMPENSATION [facility] [id number] GENERIC [id number] COMMERCIAL MERGED WITH [facility] [id number] PLAN [facility] GENERIC Commerical [id number] [facility] PPO [id number] PLAN [facility] [id number] PLAN 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 [id number] [facility] [id number] [facility] PPO [phone] [place] [address] Problems, Conditions, and Diagnoses Code Display Name Description Problem Type Effective Data Dates Source(s) T88.7XXA Lyb-ausx-ppeyfje Edi-rmxk-pnmosar [id number] 12/05/2019 Francisco Javier n [facility] adverse reaction to adverse reaction to 12:00:0 0 AM Bela medication medication [facility] [employer] [facility] T50.905A Adverse drug Adverse drug [id number] 12/05/2019 Aiea s reaction, initial reaction, initial 12:00:00 AM [facility] encounter encounter [facility] [employer] G93.40 Encephalopathy acute Encephalopathy acute 68028100 12/04 [facility] 12:00:00 AM Bela [employer] F31.4 Bipolar disorder Bipolar disorder [id number] 10/29/2019 Francisco Javier n [facility] with severe with severe 12:00:00 AM Bela depression depression [facility] [employer] E55.9 Vitamin D deficiency Vitamin D deficiency 21283724 09/03 [facility] 12:00:00 AM [facility] [employer] [facility] F41.8 Mixed anxiety and Mixed anxiety and 77402972 09/04/2019 [facility] depressive disorder depressive disorder 12:00:0 0 AM [employer] E66.01 Morbid obesity Morbid obesity 05731346 07/21/2019 [facility] 12:00:00 AM Okan Z98.84 Status post gastric Status post gastric 07520042 020 [facility] bypass for obesity bypass for obesity 12:00:00 AM Okan F32.9 Depressive disorder Depressive disorder 35948231 020 [facility] 12:00:00 AM Okan F31.9 Bipolar disorder Bipolar disorder 75876459 07/21/2019 Francisco Javier n [facility] 12:00:00 AM Okan F41.9 Anxiety Anxiety 23630967 07/21/2019 [facility] 12:00:00 AM Okan F32.9 Depression Depression 76568753 07/20/2018 [facility] 12:00:00 AM Okan E66.01 Severe obesity Severe obesity 31800886 07/19/2018 [facility] 12:00:00 AM Okan [id number] Spells Spells 88091921 04/08/2016 [facility] 12:00:00 AM [employer] G40.909 Seizure disorder Seizure disorder 52587368 04/30/2014 Francisco Javier n [facility] 12:00:00 AM Okan M79.2 Neuropathic pain of Neuropathic pain of 20288008 014 [facility] shoulder shoulder 12:00:00 AM [employer]aUsingMiles G47.00 Insomnia Insomnia 30394828 11/04/2013 [facility] 12:00:00 AM [employer] Z98.84 H/O gastric bypass H/O gastric bypass 52054075 3 [facility] 12:00:00 AM Okan G25.2 Other specified Other specified Diagnosis 01/08/2020 [facility] forms of tremor forms of tremor 03:17:29 PM [facility] [employer] F31.4 Bipolar disorder, Bipolar disorder, Diagnosis 12/25/2019 [facility] - current episode current episode 04:40:00 PM Goo d depressed, severe, depressed, severe, EDT 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 Hospital features features F41.9 Anxiety disorder, Anxiety disorder, Diagnosis 12/25/2019 [facility] unspecified unspecified 04:04:24 PM [place] R25.1 Tremor, unspecified Tremor, unspecified Diagnosis 020 [facility] 04:04:24 PM [place] Z98.84 Bariatric surgery Bariatric surgery Diagnosis 12/25/2019 [facility] status status 04:04:24 PM [place] T88.7XXA Unspecified adverse Unspecified adverse Diagnosis 020 [facility] - effect of drug or effect of drug or 11:10:37 AM Good medicament, initial medicament, initial [facility] encounter encounter Hospital G93.40 Encephalopathy, Encephalopathy, Diagnosis 12/05/2019 [facility] - unspecified unspecified 11:10:37 AM [facility] R41.82 Altered mental Altered mental Diagnosis 12/05/2019 [facility] - status, unspecified status, unspecified 11:10:3 7 AM [facility] F51.04 Psychophysiologic Psychophysiologic Diagnosis 11/14/2019 [facility] insomnia insomnia 01:22:52 PM [place] F32.2 Major depressive Major depressive Diagnosis 09/15/2019 [facility] - disorder, single disorder, single 08:22:58 AM G ood episode, severe episode, severe EDT Aidan ritan without psychotic without psychotic Hospital features features F41.8 Other specified Other specified Diagnosis 09/04/2019 [facility] anxiety disorders anxiety disorders 03:49:01 PM [place] F32.2 Major depressive Major depressive Diagnosis 09/04/2019 Francisco Javier n [facility] disorder, single disorder, single 03:49:01 PM C harity episode, severe episode, severe EDT Heal th without psychotic without psychotic System Inc features features Z23 Encounter for Encounter for Diagnosis 09/04/2019 [facility] immunization immunization 03:49:01 PM [place] T78.40XA Allergy, Allergy, Diagnosis 08/16/2019 [facility] - unspecified, initial unspecified, initial 08:39 :16 PM Good encounter encounter [facility] R06.00 Dyspnea, unspecified Dyspnea, unspecified Diagnosis 08/10 [facility] - 11:27:27 PM [facility] F31.75 Bipolar disorder, in Bipolar disorder, in Diagnosis 07/21 [facility] partial remission, partial remission, 04:40:28 PM Bela most recent episode most recent episode EST Health depressed depressed [facility] [phone] essential tremor Diagnosis [facility] [id number] Bipolar disorder Diagnosis [facility] with severe [facility] depression ([facility]) [facility] [id number] Anxiety Diagnosis Bon [facility] [phone] hypertension Diagnosis Bon [facility] [phone] depression Diagnosis [facility] [phone] depression Diagnosis [facility] [phone] edema Diagnosis [facility] [phone] depression Diagnosis [facility] [phone] evangelina associated Diagnosis [facility] with bipolar [facility] 1255 1255 hypertension Diagnosis [facility] [id number] Anxiety Diagnosis Bon 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) C [facility] [phone] depression Diagnosis Bon [facility] associated with [facility] bipolar disorder [facility] [id number] Acute low back pain Diagnosis Bon [facility] due to trauma [facility] [id number] Acute low back pain Diagnosis Bon [facility] due to trauma [facility] [id number] [id number] Bipolar disorder, in Diagnosis [facility] partial remission, Charit y most recent episode Healt h depressed ([facility]) System In c [id number] Herpes zoster Diagnosis Bon [facility] cephalicus [facility] Surgeries/Procedures Procedure Description Date Indications Data Source(s) HC HC Routine 12/25/2019 Bipolar 12/25/2019 Bipolar Francisco Javier n LITHIUM LITHIUM 4:41 PM EDT disorder 04:41:00 PM disorde r [facility] with severe EDT with severe [facility] depression depression He alth ([facility]) ([facility]) System Inc Bipolar disorder with severe depression ([facility]) GLUCOSE, POC GLUCOSE, POC Routine 12/08/2019 12/08/2019 Bon 11:35 AM 11:35:00 AM Sec ours EDT EDT [facility] METABOLIC METABOLIC Routine 12/07/2019 12/07/2019 Bon PANEL, BASIC PANEL, BASIC 4:40 AM EDT 04:40:00 A M [facility] EEG 12-26 HR EEG 12-26 HR Routine 12/06/2019 12/06/2019 Bon W/VIDEO W/VIDEO 10:25 AM 10:25:08 [facility] HC LITHIUM Routine 12/06/2019 12/06/2019 Bon 4:25 AM EDT 04:25:00 AM [facility] HC LACTIC ACID HC LACTIC ACID STAT 12/05/2019 020 Bon 7:20 PM EDT 07:20:00 PM [facility] HC AMMONIA HC AMMONIA STAT 12/05/2019 12/05/2019 Bon 7:20 PM EDT 07:20:00 PM [facility] MRI BRAIN WO MRI BRAIN WO STAT 12/05/2019 12/05/2019 Bon CONT CONT 4:50 PM EDT 04:50:12 PM [facility] EEG 12-26 HR EEG 12-26 HR STAT 12/05/2019 12/05/2019 Bon W/VIDEO W/VIDEO 3:19 PM EDT 03:19:24 PM [facility] CULTURE, URINE CULTURE, URINE Routine 12/05/2019 020 Bon 2:45 PM EDT 02:45:00 PM [facility] URINALYSIS W/ URINALYSIS W/ STAT 12/05/2019 0 Bon RFLX RFLX 2:45 PM EDT 02:45:00 PM [facility] MICROSCOPIC MICROSCOPIC [facility] BILIRUBIN, BILIRUBIN, Routine 12/05/2019 12/05/2019 Bon CONFIRM CONFIRM 2:45 PM EDT 02:45:00 PM [facility] HC LACTIC ACID HC LACTIC ACID STAT 12/05/2019 020 Bon 12:40 PM 12:40:00 [facility] HC CULTURE STAT 12/05/2019 12/05/2019 Bon BLOOD BLOOD 12:38 PM 12:38:00 PM Sec ours EDT EDT [facility] PROTHROMBIN PROTHROMBIN STAT 12/05/2019 12/05/2019 Bon TIME + INR TIME + INR 12:38 PM 12:38:00 PM [facility] EDT EDT [facility] CBC WITH CBC WITH STAT 12/05/2019 12/05/2019 Bon AUTOMATED DIFF AUTOMATED DIFF 12:38 PM 12:38:00 PM [facility] EDT EDT [facility] HC TROPONIN I HC TROPONIN I STAT 12/05/2019 0 Bon QUANT QUANT 12:38 PM 12:38:00 PM Sec ours EDT EDT [facility] METABOLIC METABOLIC STAT 12/05/2019 12/05/2019 Bon PANEL, PANEL, 12:38 PM 12:38:00 PM Sec ours COMPREHENSIVE COMPREHENSIVE EDT EDT [facility] MAGNESIUM MAGNESIUM STAT 12/05/2019 12/05/2019 Bon 12:38 PM 12:38:00 PM Sec ours EDT EDT [facility] HC LITHIUM HC LITHIUM STAT 12/05/2019 12/05/2019 Bon 12:38 PM 12:38:00 PM Sec ours EDT EDT [facility] CT HEAD WO CT HEAD WO STAT 12/05/2019 12/05/2019 Bon CONT CONT 12:30 PM 12:30:54 PM Sec ours EDT EDT [facility] HC CULTURE HC CULTURE STAT 12/05/2019 12/05/2019 Bon BLOOD BLOOD 12:30 PM 12:30:00 PM Sec ours EDT EDT [facility] XR PELV AP XR PELV AP STAT 12/05/2019 12/05/2019 Bon ONLY ONLY 12:14 PM 12:14:58 PM Sec ours EDT EDT [facility] XR CHEST PORT XR CHEST PORT STAT 12/05/2019 0 Bon 12:14 PM 12:14:51 PM Sec ours EDT EDT [facility] RT--OXYGEN RT--OXYGEN STAT 12/05/2019 12/05/2019 Bon CANNULA CANNULA 11:20 AM 11:20:37 AM Sec [facility] EDT EDT [facility] EEG DIGITAL EEG DIGITAL Routine 12/05/2019 12/05/2019 Bon ANALYSIS ANALYSIS 11:10 AM 11:10:37 AM S [facility] EDT EDT [facility] CBC WITH CBC WITH STAT 10/30/2019 10/30/2019 Bon AUTOMATED DIFF AUTOMATED DIFF 6:40 AM EDT 06:40: 00 AM [facility] EDT [facility] METABOLIC METABOLIC STAT 10/30/2019 10/30/2019 Bon PANEL, BASIC PANEL, BASIC 6:40 AM EDT 06:40:00 A M [facility] EDT [facility] URINALYSIS W/ URINALYSIS W/ STAT 10/29/2019 0 Bon RFLX RFLX 6:34 PM EDT 06:34:00 PM [facility] MICROSCOPIC MICROSCOPIC EDT [facility] XR CHEST PORT XR CHEST PORT STAT 10/29/2019 0 Bon 12:09 PM 12:09:04 PM Sec [facility] EDT EDT [facility] CT HEAD WO CT HEAD WO STAT 10/29/2019 10/29/2019 Bon CONT CONT 11:47 AM 11:47:42 AM Sec [facility] EDT EDT [facility] HC GLUCOSE HC GLUCOSE Routine 10/29/2019 10/29/2019 Bon POCT POCT 11:26 AM 11:26:00 AM Sec [facility] EDT EDT [facility] PROTHROMBIN PROTHROMBIN STAT 10/29/2019 10/29/2019 Bon TIME + INR TIME + INR 10:45 AM 10:45:00 AM [facility] EDT EDT [facility] CBC WITH CBC WITH STAT 10/29/2019 10/29/2019 Bon AUTOMATED DIFF AUTOMATED DIFF 10:45 AM 10:45:00 AM [facility] EDT EDT [facility] HC PARTIAL HC PARTIAL STAT 10/29/2019 10/29/2019 Bon THROMBOPLASTIN THROMBOPLASTIN 10:45 AM 10:45:00 AM [facility] / PTT / PTT EDT EDT [facility] METABOLIC METABOLIC STAT 10/29/2019 10/29/2019 Bon PANEL, PANEL, 10:45 AM 10:45:00 AM [facility] COMPREHENSIVE COMPREHENSIVE EDT EDT [facility] HC LITHIUM HC LITHIUM STAT 10/29/2019 10/29/2019 Bon 10:45 AM 10:45:00 AM Sec [facility] EDT EDT [facility] XR SPINE LUMB XR SPINE LUMB [...] n [facility] 9:00 PM EST 02:00:00 AM [facility] [facility] CBC WITH AUTOMATED CBC WITH STAT 08/16/2019 0 [facility] DIFF AUTOMATED DIFF 9:00 PM EST 02:00:00 AM [facility] [employer] [facility] TROPONIN I TROPONIN I STAT 08/16/2019 08/17/2019 [facility] 9:00 PM EST 02:00:00 AM [facility] [employer] [facility] METABOLIC PANEL, METABOLIC PANEL, STAT 08/16/2019 [facility] COMPREHENSIVE COMPREHENSIVE 9:00 PM EST 02:00:00 AM [facility] [employer] [facility] MAGNESIUM MAGNESIUM STAT 08/16/2019 08/17/2019 [facility] 9:00 PM EST 02:00:00 AM [facility] [employer] [facility] LITHIUM LITHIUM STAT 08/16/2019 08/17/2019 Francisco Javier n [facility] 9:00 PM EST 02:00:00 AM [facility] [employer] [facility] INFLUENZA A <td><content ID="[id number]">INFLUENZA A & B 07/26 Bon & B AG AG (RAPID 05:18:00 AM [facility] (RAPID TEST) TEST)</content></td><td>STAT</td><td>08/11/2019 [facility] 12:18 AM EST</td><td></td><td><paragraph Health styleCode="header">Results for this procedure are System in the <content Inc styleCode="xLink2-[id number]">results section</content>.</paragraph></td> PROTHROMBIN PROTHROMBIN STAT 08/11/2019 08/11/2019 Bon TIME + INR TIME + INR 12:01 AM 05:01:00 AM [facility] D DIMER D DIMER STAT 08/11/2019 08/11/2019 Francisco Javier n 12:01 AM 05:01:00 AM Sec [facility] CBC WITH CBC WITH STAT 08/11/2019 08/11/2019 Bon AUTOMATED DIFF AUTOMATED DIFF 12:01 AM 05:01:00 AM [facility] PTT PTT STAT 08/11/2019 08/11/2019 Francisco Javier n 12:01 AM 05:01:00 AM Sec [facility] TROPONIN I TROPONIN I STAT 08/11/2019 08/11/2019 Bon 12:01 AM 05:01:00 AM Sec [facility] METABOLIC METABOLIC STAT 08/11/2019 08/11/2019 Bon PANEL, PANEL, 12:01 AM 05:01:00 AM [facility] COMPREHENSIVE COMPREHENSIVE [facility] MAGNESIUM MAGNESIUM STAT 08/11/2019 08/11/2019 Bon 12:01 AM 05:01:00 AM Sec [facility] LITHIUM LITHIUM STAT 08/11/2019 08/11/2019 Francisco Javier n 12:01 AM 05:01:00 AM Sec [facility] LACTIC ACID LACTIC ACID STAT 08/11/2019 08/11/2019 Bon 12:01 AM 05:01:00 AM Sec [facility] BNP BNP STAT 08/11/2019 08/11/2019 Francisco Javier n 12:01 AM 05:01:00 AM Sec [facility] RT--OXYGEN RT--OXYGEN STAT 08/10/2019 08/11/2019 Bon CANNULA CANNULA 11:51 PM 04:51:27 AM Sec [facility] EST EST [facility] [employer] [facility] EKG, 12 LEAD, EKG, 12 LEAD, STAT 08/10/2019 0 Bon INITIAL INITIAL 10:14 PM 03:14:27 AM Sec [facility] EST EST [facility] [employer] [facility] XR SMALL BOWEL XR SMALL BOWEL Routine 08/02/2018 Morbid 019 Morbid Bon SERIES SERIES 11:01 AM obesity 04:01:14 PM obesity [facility] EST (HCC) EST (HCC) [facility] Morbid obesity (HCC) CBC WITH AUTOMATED CBC WITH STAT 07/12/2018 9 [facility] DIFF AUTOMATED DIFF 12:40 AM EST 05:40:00 AM [facility] TROPONIN I TROPONIN I STAT 07/12/2018 07/12/2018 [facility] 12:40 AM EST 05:40:00 AM [facility] METABOLIC PANEL, METABOLIC PANEL, STAT 07/12/2018 [facility] COMPREHENSIVE COMPREHENSIVE 12:40 AM EST 05:40:0 0 AM [facility] MAGNESIUM MAGNESIUM STAT 07/12/2018 07/12/2018 [facility] 12:40 AM EST 05:40:00 AM [facility] RT--OXYGEN CANNULA RT--OXYGEN STAT 07/12/2018 019 [facility] CANNULA 12:21 AM EST 05:21:15 AM [facility] Results ID Date Data Source [id number] 03/22/2020 09:00:00 AM EDT [facility] Name Value Range Interpretation Description Data Sup porting Code Source(s) Document(s ) SARS [facility] coronavirus 2 RNA This lab was ordered by [facility] and reported by [facility]. ID Date Data Source [id number] 03/19/2020 10:37:00 AM EDT [facility] Name Value Range Interpretation Description Data Sup porting Code Source(s) Document(s ) SARS [facility] coronavirus 2 RNA This lab was ordered by [facility] and reported by [facility]. ID Date Data Source [id number] 03/15/2020 10:30:00 AM EDT [facility] Name Value Range Interpretation Description Data Sup porting Code Source(s) Document(s ) SARS [facility] coronavirus 2 RNA This lab was ordered by [facility] and reported by [facility]. ID Date Data Source [id number] 03/12/2020 12:00:00 PM EDT [facility] Name Value Range Interpretation Description Data Sup porting Code Source(s) Document(s ) SARS [facility] coronavirus 2 RNA This lab was ordered by [facility] and reported by [facility]. ID Date Data Source [id number] 03/08/2020 10:18:00 AM EDT [facility] Name Value Range Interpretation Description Data Sup porting Code Source(s) Document(s ) SARS [facility] coronavirus 2 RNA This lab was ordered by [facility] and reported by [facility]. ID Date Data Source [id number] 03/04/2020 09:50:00 AM EDT [facility] Name Value Range Interpretation Description Data Sup porting Code Source(s) Document(s ) SARS [facility] coronavirus 2 RNA This lab was ordered by [facility] and reported by [facility]. ID Date Data Source [id number] 03/02/2020 12:15:00 PM EDT [facility] Name Value Range Interpretation Description Data Sup porting Code Source(s) Document(s ) SARS [facility] coronavirus 2 RNA This lab was ordered by [facility] and reported by [facility]. ID Date Data Source [id number] 02/27/2020 09:15:00 AM EDT [facility] Name Value Range Interpretation Description Data Sup porting Code Source(s) Document(s ) SARS [facility] coronavirus 2 RNA This lab was ordered by [facility] and reported by [facility]. ID Date Data Source [id number] 02/23/2020 11:40:00 AM EDT [facility] Name Value Range Interpretation Description Data Sup porting Code Source(s) Document(s ) SARS [facility] coronavirus 2 RNA This lab was ordered by [facility] and reported by [facility]. ID Date Data Source [id number] 02/19/2020 09:56:00 AM EDT [facility] Name Value Range Interpretation Description Data Sup porting Code Source(s) Document(s ) SARS [facility] coronavirus 2 RNA This lab was [facility] by [facility] and reported by [facility]. ID Date Data Source [id number] 02/16/2020 08:40:00 AM EDT [facility] Name Value Range Interpretation Description Data Sup porting Code Source(s) Document(s ) SARS [facility] coronavirus 2 RNA [facility] and reported by [facility]. ID Date Data Source [id number] 02/13/2020 10:05:00 AM EDT [facility] Name Value Range Interpretation Description Data Sup porting Code Source(s) Document(s ) SARS [facility] coronavirus 2 RNA This lab was ordered by [facility] and reported by [facility]. ID Date Data Source [id number] 02/09/2020 10:25:00 AM EDT [facility] Name Value Range Interpretation Description Data Sup porting Code Source(s) Document(s ) SARS [facility] coronavirus 2 RNA This lab was ordered by [facility] and reported by [facility]. ID Date Data Source [id number] 01/25/2020 09:20:00 AM EDT [facility] Name Value Range Interpretation Description Data Sup porting Code Source(s) Document(s ) 2019 Novel [facility] Coronavirus RNA Interpretation Unspecified Specimen Qualitative CATA Probe Detection This lab was ordered by [facility] and reported by [facility]. ID Date Data Source [id number] 12/25/2019 05:54:30 PM EDT [facility] Name Value Range Interpretation Description Data Sup porting Code Source(s) Document(s ) Gustavus 0.38 0.6-1.2 Below low normal [facility] [Moles/volu MMOL/L [facility]] in Hospital Serum or Plasma ID Date Data Source [id number] 12/23/2019 01:50:56 PM EDT [facility] Discharge SummaryPatient: Maxwell Mendieta Trimbl e Sex: male DOA: 12/05/2019Date of : 1970 A ge: 49 y.o. LOS: LOS: 3 daysAdmit Date: 12/05/2019Discharge Date: 12/08/2019 Admission Diagnoses: Encephalopathy acute [G93.40];Olo-toai-jafhfmp adversereactio n to medication [T88.7XXA];Nfn-knhv-asgeulg adverse reaction tomedication [T88.7XXA] Discharge Diagnoses: #1 [...] ICD-10-CM: T50.905AICD -9-CM: E947.9 12/05/2019 - Present Kgs-khim-ilnowlf adverse reaction to med ication ICD-10-CM: T88.3XBYMSM-0-FP: 995.20 12/05/2019 - Present Bipolar disorder wit [...] E66.01ICD-9-CM: 278.01 07/19/2018 - Present Spells ICD-10-CM: [id number]-JC: IMO00 01 04/08/2016 - Present Seizure disorder [...] neededFollo w-up:to follow in office in one weekGeorge MD Corey Name Value Range Interpretation Code Description Data Melani rce(s) Supporting Document(s ) ID Date Data Source [id number] 12/09/2019 02:14:04 PM EDT [facility] referral made. Walker order faxed t o [facility], [facility] and [facility] do NOT acc ept pts insurance.Faxed to Moriah at [facility] at FAX [phone]. She reports they ne ed to get authfor walker. Have instucted pt to buy own walker IF not authorized.He i s agreeable to buying walker if needs to.Care Management InterventionsPCP Verified by CM: YesTransition of Care Consult (CM Consult): Home HealthBon BDA Home Car e: YesCurrent Support Network: Own Home, Lives with SpouseThe Patient and/or Prachi ent Tree Expert was Provided with a Choice of Providerand Agrees with the Discharge Plan?: YesFreedom of Choice List was Provided with Basic Dialogue that Suppor ts thePatient's Individualized Plan of Care/Goals, Treatment Preferences and Sh aresthe Quality Data Associated with the Providers?: YesVeteran Resource Informat ion Provided?: RefusedDischarge LocationDischarge Placement: Home with [facility] BY [facility])Pt is discharged , picking him up. reports she has phone number tomake pt a follow up psych appt. [facility] to visit. will buy walker if not able to get thru [facility].Post dc note 12/08[facility] reports 50% copay - they lef t message on 's phone.I also, left a message with my call back number for any questions. hadreported to me she planned on buying a walker and would ret urn if insurance paidfor one. Name Value Range Interpretation Code Description Data Melani rce(s) Supporting Document(s ) ID Date Data Source [id number] 12/08/2019 03:06:17 PM EDT [facility] I have reviewed discharge instructions w ith [...] Supporting Document(s ) ID Date Data Source [id number] 12/08/2019 03:02:56 PM EDT [facility] Per your note, pt with acute encephalopa thy and toxic Serum Gustavus level.Please specify the type of encephalopathy in yo ur progress notes: Toxic encephalopathy due to lithium Metabolic encephalopathy due to Other cause (please specify) Clinically unable to determine UnknownPLEASE DOCUM ENT ANY ADDITIONAL DIAGNOSES AND/OR SPECIFICITY IN THE PROGRESSNOTES AND/OR DISCHARGE SUMMARY. Name Value Range Interpretation Code Description Data Melani rce(s) Supporting Document(s ) ID Date Data Source [id number] 12/08/2019 02:40:45 PM EDT [facility] Problem: SuicideGoal: *STG: Remains safe in hospital12/08/2019 1440 by Ru Mosher: Resolved/Met12/08/20191438 by Ru Mosher: Progressing Towards GoalGoal: *STG: Seeks staff when feeling s of self harm or harm towards others arise12/08/2019 1440 by Ru Mosher : Resolved/Met12/08/20191438 by Ru Mosher: Progressing Towards GoalGoa l: *STG: Attends activities and groups12/08/2019 144 by Anup Mosher e: Resolved/Met12/08/20191438 by Ru Mosher: Progressing Towards GoalGoa l: *STG: Verbalizes alternative ways of dealing with maladaptivefeelings/behavio rs12/08/2019 1440 by Ru Mosher: Resolved/Met12/08/20191438 by Glenys Mosher Outcome: Progressing Towards GoalGoal: *STG/LTG: Complies with medication thera py12/08/2019 1440 by Ru Mosher: Resolved/Met12/08/20191438 by Glenys Mosher Outcome: Progressing Towards GoalGoal: *STG/LTG: No longer expresses self destr uctive or suicidal thoughts12/08/2019 1440 by Ru Mosher: Resolved/Met12/08/20191438 by Ru Mosher: Progressing Towards GoalGoal: *LTG: Identifies GENERAL MEDICAL MERATE Sleepy's12/08/2019 1440 by Ru Mosher: Resolved/Met12/08/20191438 by Ru Mosher: Progressing Towards GoalGoal: *LTG: Develops proact sarah suicide prevention plan12/08/2019 1440 by Basilio Moshercome: Resolved/Met12/08/2019 1439 by Basilio Moshercome: Progressing Towards GoalGoal: Interventions12/08/2019 1440 by Basilio Moshercome: Resolved/Met12/08/2019 1439 by Glenys Mosher Outcome: Progressing Towards GoalProblem: Patient Education: Go to Patient Educati on ActivityGoal: Patient/Family Education12/08/2019 1440 by Basilio Mosher come: Resolved/Met12/08/2019 1439 by Ru Mosher: Progressing Towards GoalPro blem: Falls - Risk ofGoal: *Absence of FallsDescription: Document Carmen Fall R isk and appropriate interventions in [facility].12/08/2019 1440 by Divya Mosher yOutcome: Resolved/MetNote: Fall Risk Interventions:Mobility Interventions: Be d/chair [...] Education ActivityGoal: Patient/Family Education12/08/2019 1440 b y Basilio Moshercome: Resolved/Met12/08/2019 1439 by Ru Mosher: Progressing T owards GoalProblem: Pressure Injury - Risk ofGoal: *Prevention of pressure injuryDe scription: Document Harsh Scale and appropriate interventions in [facility] t.12/08/2019 1440 by Ru Mosher: Resolved/MetNote: [...] less, Lift sheet, Minimize layers12/08/2019 1439 by uR Mosher: Progressing Towards GoalNote: Pressure I njury [...] 0 by Ru Mosher: Resolved/Met12/08/2019 1439 by Mosher, KatyOutcome: Progressing T owards GoalGoal: *Fluid volume balance12/08/2019 1440 by Ashish Mosher me: Resolved/Met12/08/2019 1439 by Basilio Moshercome: Progressing Towards GoalGoa l: *Labs within defined limits12/08/2019 1440 by Basilio Moshercome: Resolved/Met 020 1439 by Basilio Moshercome: Progressing Towards GoalProblem: Patient Education: Go to Patient Education ActivityGoal: Patient/Family Education12/08/2019 1440 b y Basilio Moshercome: Resolved/Met12/08/2019 1439 by uR Mosher: Progressing T owkyler GoalProblem: Fluid Volume - Risk of, ImbalancedGoal: [...] Supporting Document(s ) ID Date Data Source [id number] 12/08/2019 02:40:17 PM EDT [facility] Problem: SuicideGoal: *STG: Remains safe in hospitalOutcome: [...] Fall R isk and appropriate interventions in [facility].Outcome: Progressing Toward s GoalNote: Fall Risk [...] Document Harsh Scale and appropriate interventions in [facility].Outcome: P rogressing Towards GoalNote: Pressure [...] Supporting Document(s ) ID Date Data Source [id number] 12/08/2019 01:18:54 PM EDT [facility] General Daily Progress NoteAdmit Date: Hospital day: .tdSubjective:Psycgm Neuro,and PT assessments reviewed. Patie nt qualifies for discharge. Wifecalled, will bring in clothes. New medical regimen di scussed with the . Willneed Gustavus level later this week.Current Facility-Adminis tered MedicationsMedication [...] past 8 hrs: BP Temp Pulse Resp ArU92112/07 0816 - - - - 96 %12/08/19 [...] initial encounter (12/05/2019)Active Problems: Encephalopathy acute (12/05/2019) Mkk-xydo-uasxahx adve rse reaction to medication (12/05/2019)Plan: day of discharge. Name Value Range Interpretation Code Description Data Melani rce(s) Supporting Document(s ) ID Date Data Source [id number] 12/08/2019 12:09:30 PM EDT [facility] Problem: Mobility Impaired (Adult and Pe diatric)Goal: [...] y.o. male)Date: 12/08/2019Primary Diagnosis: E ncephalopathy acute [G93.40]Bwu-okzq-rfpezda adverse reaction to medication [T88.7XXA ]Hgv-wimt-bywcctt adverse reaction to medication [T88.7XXA]Precautions: Fall ASSESSMENT [...] ty or mortality cardiac cath at [facility] approx 6-8 months ago Other unknown [...] NoneCritical Beh avior:Neurologic State: AlertOrientation Level: Oriented F3Aryjchdvu: Appropriate for age attention/concentration;Follows commandsSafety/Judgement: Decreased awar [...] in no apparent distress in bed[x] Call zuhair faust within reach[x] Nursing notified[] Caregiver present[] Bed [...] Supporting Document(s ) ID Date Data Source [id number] 12/08/2019 11:48:26 AM EDT [facility] Name Value Range Interpretation Description Data Sup porting Code Source(s) Document(s ) Glucose 132 MG/DL 65-110 Above high normal [facility] [Mass/volume] Gnosticism in Blood by [facility] Automated test strip ID Date Data Source [id number] 12/08/2019 10:35:45 AM EDT [facility] S/O Patient has shown improvement. He re ports that medications are helping him.He denies any side effectsHe denies any cecilia cidal thoughtsHe reports that he sees a [facility] 300 mg bid Gustavus level in two days Will increase Zyprexa 5 mg Will follow up as requested Name Value Range Interpretation Code Description Data [facility] rce(s) Supporting Document(s ) ID Date Data Source [id number] 12/08/2019 07:28:52 AM EDT [facility] Bedside and Verbal shift change report cristi bolanos to SUSI Hurley (oncoming nurse) Annalise DE LEON RN (offgoing nurse). Repor t included the followinginformation SBAR, Kardex, MAR and Recent Results. Name Value Range Interpretation Code Description Data Melani rce(s) Supporting Document(s ) ID Date Data Source [id number] 12/07/2019 08:26:02 PM EDT [facility] Problem: Falls - Risk ofGoal: *Absence o [...] Range Interpretation Code Description Data [facility] rce(s) Supporting Document(s ) ID Date Data Source [id number] 12/07/2019 07:05:28 PM EDT [facility] Verbal shift change report given to Chandrakant Cox RN (oncoming nurse) by Steven Villalobos RN (offgoing nurse). Report inc luded the following information SBAR, Kardex,Intake/Output, MAR, Recent Result s and Cardiac Rhythm on telemetry. Name Value Range Interpretation Code Description Data [facility] rce(s) Supporting Document(s ) ID Date Data Source [id number] 12/07/2019 01:30:56 PM EDT [facility] Trent Jacob MD[address] [place] [address] [id number].Wetradetogether Progress NotePatient: Maxwell Bray Sex: male DOA: [...] (LOVENOX) injection 40 mg 40 mg SubCUTAneous Y51KWcefynxaz:Visit VitalsBP 153/85 (BP 1 Location: Left arm, BP Prachi ent Position: At rest)Pulse 96Temp 98.7 F (37.1 C)Resp 20Ht 5' 5.75" (1.67 m)Wt 3 01 lb 1.6 oz (136.6 kg)SpO2 96%BMI 48.97 kg/m Body mass index is 48.97 kg/m .Patient V itals for the past 24 hrs: Temp Pulse Resp BP AjA854/ 1249 - 96 - 153/85 - 0 0956 98.7 F (37.1 C) 95 20 147/86 -12/07/19 0815 98.7 F (37.1 C) 95 20 1 46/89 96 %12/07/19 0807 98.8 F (37.1 C) 96 22 (!) 156/106 95 %06/14/20 0550 100.2 F (37.9 C) 95 20 (!) 150/93 94 %12/07/19 0120 - 95 18 164/90 95 %12/07/19 0054 98 F (36.7 C) 98 18 (!) 143/100 96 %12/06/195 98.8 F (37.1 C) 95 15 143/90 [...] shoulder M79.2 Seizure disorder (HCC) G40.909 Spells [id number] Severe obesity (HCC) E66.01 Depression F32.9 Anxiety F41.9 Bipolar disorder (HCC) F31.9 Depressive disorder F32.9 Status post g astric bypass for obesity Z98.84 Morbid obesity (HCC) E66.01 Mixed anxiety and depressive disorder F41.8 Vitamin D deficiency E55.9 Bipolar disorder with severe depression (HCC) F31.4 Encephalopathy acute G93.40 Adverse drug reaction, ini tial encounter T50.905A Hrs-etcr-seivxfc adverse reaction to medication T88.7XXA 49 year [...] Supporting Document(s ) ID Date Data Source [id number] 12/07/2019 01:02:36 PM EDT [facility] Pt seen and discussed with Dr Canas .Pt is tearful flat and denies any suicidal thoughts , has been depressed withlithiu m on hold , No Vraylar and he is unable to get his ECT at [facility] And no w will be with [facility] with Dr Womack his lithium level is un therape utic range I will start on lithium , add 2.5mg of zyprexa and lower his klonopin And increase his elavil to 200 mg HSWill get pt followed up with Psychiatry Name Value Range Interpretation Code Description Data Melani rce(s) Supporting Document(s ) ID Date Data Source [id number] 12/07/2019 12:52:32 PM EDT [facility] Problem: Fluid Volume - Risk of, Imbalan cedGoal: *Balanced intake and outputOutcome: Progressing Towards GoalProblem: Patient Education: Go to Patient Education ActivityGoal: Patient/Family EducationOu tcome: Progressing Towards Goal Name Value Range Interpretation Code Description Data Melani rce(s) Supporting Document(s ) ID Date Data Source [id number] 12/07/2019 12:45:20 PM EDT [facility] Problem: Falls - Risk ofGoal: *Absence o [...] Supporting Document(s ) ID Date Data Source [id number] 12/07/2019 12:24:47 PM EDT [facility] General Daily Progress NoteAdmit Date: Hospital day: [...] injection 40 mg 40 mg SubCUTA neous D83BVdlquzhih:Patient Vitals for the past 8 hrs: BP Temp Pulse Resp TpD48212/06 0956 147/86 98.7 F (37.1 C) 95 20 -12/07/19 0815 146/89 98.7 F (37.1 C) 95 20 96 %12/07/19 0807 (!) 156/106 98.8 F (37.1 C) 96 22 95 %12/07/19 0550 (!) 15 100.2 F (37.9 C) 95 20 94 %No intake/output data recorded.12/04 1900 - 12/06 0700In: 1000 [I.V.:1000]Out: - Physical [...] initial encounter (12/05/2019)Active Problems: Encephalopathy acute (12/05/2019) Qir-aemj-vrtpjpl adve rse reaction to medication (12/05/2019)Plan:To increase activity, diet,klonopin. Start Losartan Name Value Range Interpretation Code Description Data Melani rce(s) Supporting Document(s ) ID Date Data Source [id number] 12/07/2019 10:13:28 AM EDT [facility] LTM EEG mark up designer DC'd per Dr. Jacob. Name Value Range Interpretation Code Description Data Melani rce(s) Supporting Document(s ) ID Date Data Source [id number] 12/07/2019 10:08:27 AM EDT [facility] [place], [place] [address]QXTCVQM: MAXWELL BRAYMRN: [id number]: [id number]#: [id number] DATE: 12/05/2019LONG TERM MONITORING VIDEO INTELLIGENCE CHIEF: Riky Rodriguez HISTORY: The patient is a [...] montages. Digital analysis was performed employing an [employer] neuralnetwork program with parameterization and statistical analysi [...] seen, that attenuates with eye opening.There was sujd-sa-gjycprsp gener alized background slowing.There was no clear focal slowing.ACTIVATION TECHNIQUES: Ph otic stimulation and hyperventilation were notperformed.SLEEP: During drowsiness, there is mild attenuation and slowing of thebackground rhythm. There was normal sleep seen including symmetric vertexwaves, sleep spindles, and K-complexes.OTHER AC TIVITY: There were no clear epileptiform discharges and no seizures orclinical ev ents recorded.DIGITAL ANALYSIS: Variable spectral pattern without significant lef t-qu-oubayixrmdaxqegl. Spikes were artifact in nature.DECEMBER 06 DAILY [...] the awake and asleep states due to qynu-zf-rpcaldjh diffuse cerebraldysfunc tion that improves to mild over the course of the recording. TRENT JACOB, ELIZABETHD: #12/06/2019 10:21:35/SS /v_hsisk_i/v_hsmpy_pJob #: [id number] / [id number] Name Value Range Interpretation Code Description Data Melani rce(s) Supporting Document(s ) ID Date Data Source [id number] 12/07/2019 07:45:20 AM EDT [facility] Bedside and Verbal shift change report cristi Dove RN (3Loria) (oncomingnurse) by Vy Green RN (offgoing nurse). Report included the following information SBAR, Kardex, MARand Recent Results. Name Value Range Interpretation Code Description Data Melani rce(s) Supporting Document(s ) ID Date Data Source [id number] 12/07/2019 07:22:41 AM EDT [facility] All leads and head wrapping intact. Day 2 LTM complete. Awaiting instructions tocontinue for day 3 or DC. Name Value Range Interpretation Code Description Data Melani rce(s) Supporting Document(s ) ID Date Data Source [id number] 12/07/2019 05:19:11 AM EDT [facility] Name Value Range Interpretation Description Data Sup porting Code Source(s) Document(s ) Sodium 138 136-145 [facility] - Good [Moles/volume] mmol/L Gnosticism in Serum or Hospital Plasma Potassium 3.5 3.5-5.1 [facility] - Good [Moles/volume] mmol/L Gnosticism in Serum or Hospital Plasma Chloride 106 98-107 [facility] - Good [Moles/volume] mmol/L Gnosticism in Serum or Hospital Plasma Carbon 27 21-32 [facility] - Good dioxide, total mmol/L Gnostic[facility] [Moles/volume] Hospital in Serum or Plasma Anion gap in 10 10-20 [facility] - Good Serum or mmol/L Gnosticism Plasma Hospital Glucose 140 74-106 Above high normal [facility] - Good [Mass/volume] mg/dL Gnosticism in Serum or Hospital Plasma Urea nitrogen 19 mg/dL 7-18 Above high normal [facility] - Good [Mass/volume] Gnosticism in Serum or Hospital Plasma Creatinine 0.94 0.70-1.3 [facility] - Good [Mass/volume] mg/dL 0 Gnosticism in Serum or Hospital Plasma Glomerular >60 [facility] - Good filtration Gnosticism rate/1.73 sq M Hospital predicted among blacks [Volume Rate/Area] in Serum or Plasma by Creatinine-bas ed formula (MDRD) Glomerular >60 [facility] - Good filtration Gnosticism rate/1.73 sq M Hospital predicted among non-blacks [Volume Rate/Area] in Serum or Plasma by Creatinine-bas ed formula (MDRD) (NOTE)Estimated GFR is calculated using the Modification of Diet in RenalDisease (MDRD) Study equation, reported for both Americans(GFRAA) and non- Americans (GFRNA), and normalized to 1.7 0r6ecpq surface area. The physician must decide which value applies tothe patient . The MDRD study equation should only be used inindividuals age 18 or older. It has no t been validated for thefollowing: women, patients with serious comorbid co nditions,or on certain medications, or persons with extremes of body size,muscl e mass, or nutritional status. Calcium [Mass/volume] in Serum 9.1 mg/dL 8.5-10.1 [facility] or [facility] ID Date Data Source [id number] 12/06/2019 08:12:24 PM EDT [facility] Bedside and Verbal shift change report g ivhali to Rach UGALDE (oncoming nurse) Estephania Wakefield RN (offgoing nurse). Report included the followinginformation SBAR, Kardex, MAR, Recent Results, and Med Rec Status. Name Value Range Interpretation Code Description Data Melani rce(s) Supporting Document(s ) ID Date Data Source [id number] 12/06/2019 04:57:12 PM EDT [facility] General Daily Progress NoteAdmit Date: Hospital day: [...] (LOVENOX) injection 40 mg 40 mg SubCUTAneous U87GFdseczbch:Patient Vi tals for the past 8 hrs: BP Temp Pulse Resp GuL94812/06/19 1547 (!) 164/100 99.6 F (3 7.6 [...] Time: 12/06/19 4:25 AMResult Value Ref Range Gustavus level 1.09 0.6 - 1.2 MMOL/L Xr [...] initial encounter (12/05/2019)Active Problems: Encephalopathy acute (12/05/2019) Yud-wvrx-sioekua adve rse reaction to medication (12/05/2019)Plan:To reduce iv fluids, repeat lasix Name Value Range Interpretation Code Description Data Melani rce(s) Supporting Document(s ) ID Date Data Source [id number] 12/06/2019 04:14:48 PM EDT [facility] Psychiatry Consult NoteSubjective:Landen t: Maxwell Bray Age: [...] or mortality cardiac cath at [facility] approx 6-8 months ago Other unknown and unspecified cause of morbidity or mortal ity concussions Other unknown and unspecified cause of morbidity or mortal ity "periodic disorientation" Other unknown and unspecified cause of morbidity or mo rtality anxiety Psychiatric disorder anxiety, depressionPsychiatric History: Patient reported he was receiving care in outpatient from [facility] psychiatrist t did not discuss details.Substance Use History:Social HistorySubstance and Sexu al ActivityAlcohol Use No Frequency: Never Drinks per session: 1 or 2 Binge freque ncy: NeverSocial HistorySubstance and Sexual ActivityDrug Use NoObjective:Vitals/Phys ical Assessment:Patient Vitals for the past 8 hrs: BP Temp Pulse Resp ZgD39912/06/19 081 3 (!) 153/94 100.4 F (38 [...] encounter (12/05/2019)A ctive Problems: Encephalopathy acute (12/05/2019) Foy-jdvn-samofbv adverse re action to medication (12/05/2019)Plan:No current [...] Supporting Document(s ) ID Date Data Source [id number] 12/06/2019 01:18:16 PM EDT [facility] Trent Jacob MD[address] [place] [address] [id number] Progress NotePatient: Maxwell Bray Sex: male DOA: 12/05/2019Date of : 1970 Age: 49 y.o. LOS: LOS: 1 daySubjective:Awake, alert, tremulous, no current complaintsEEG w/ mild to mod gen slowREVIEW OF SYSTEMS: NO CP, SOB, N,V,D, F,CCurrent Facility-Administered MedicationsMedication Dose Route Frequen cy 0.9% sodium chloride infusion 125 mL/hr IntraVENous CONTINUOUS enoxaparin (LOVE NOX) injection 40 mg 40 mg SubCUTAneous H84WJgttqeevs:Visit VitalsBP (!) 153/94 (BP 1 Location: Left arm, BP Patient Position: At rest)Pulse 100Temp 100.4 F (38 C)Resp 18Ht 5' 5.75" (1.67 m)Wt 300 lb (136.1 kg)SpO2 96%BMI 48.79 kg/m Body mass index is 48.79 kg/m .Patient Vitals for the past 24 hrs: Temp Pulse Resp BP FkA33012/06/19 0813 100.4 F (38 C) 100 18 [...] t to self and place, president = Trump) + hypophoniaCranial NervesEOMS full VFF pu pils [...] past 24 hours were reviewed both during [facility] daily workflow process and at the time notated as "note time" in [facility]. (It is not time stamped separately [...] Time: 12/06/19 4:25 AMResult Value Ref Range Gustavus level 1.09 0.6 - 1.2 MMOL/LCT Results [...] images were created on an independent workstation. Utilizingmanufacturer haim walsh the examination was performed to optimize [...] the brain.MRI Results (most recent):[facility] from [facility] encounter on 12/05/19MRI BRAIN WO CONT [...] hic pain of shoulder M79.2 Seizure disorder (HCC) G40.909 Spells OEI3594 Severe ob esity ([facility]) E66.01 Depression F32.9 Anxiety F41.9 Bipolar disorder (HCC) F31.9 Dep ressive disorder F32.9 Status post gastric bypass for obesity Z98.84 Morbid obesit y ([facility]) E66.01 Mixed anxiety and depressive disorder F41.8 Vitamin D deficiency E55 .9 Bipolar disorder with severe depression (HCC) F31.4 Encephalopathy acute G93.40 Adverse drug reaction, initial encounter T50.905A Tpv-qjep-dbcbvlk adverse react ion to medication T88.7XXA49 year [...] Supporting Document(s ) ID Date Data Source [id number] 12/06/2019 11:43:34 AM EDT [facility] LTM study day 1 complete. All leads and head wrapping intact. Day 2 LTM studycommenced and LIVE via WIFI on [facility]. 06/28 Name Value Range Interpretation Code Description Data Melani rce(s) Supporting Document(s ) ID Date Data Source [id number] 12/06/2019 10:48:32 AM EDT [facility] Care Management InterventionsPCP Verifie d by CM: YesCurrent Support Network: Own Home, Lives with SpouseThe Patient and/o r Patient Tree Expert was Provided with a Choice of Providerand Agrees with the Betty rose Plan?: YesFreedom of Choice List was Provided with Basic Dialogue that Suppor ts thePatient's Individualized Plan of Care/Goals, Treatment Preferences and Sh aresthe Quality Data Associated with the Providers?: YesVeteran Resource Informat ion Provided?: RefusedDischarge LocationDischarge Placement: HomeCASE YUE GERDA PSYCHOSOCIAL ASSESSMENTArieian Anam Bray Admission Marlon e: 12/05/2019MRN: [id number] of : 1970Current date: 12/06/2019 DISCHARGE PLAN: Patient is a 49 year old male admitted to [facility]. CM attempted toreach hi m via room phone and was unsuccessful. CM spoke with the spouses ,Blanca at [phone]. Prior to hospitalization patient was independent of [...] services. Open for SNF. Family would like [facility]. CM CCLINKD. CM willfollow.Patient Information:Patients Preferred [...] NoPCP: Ritika Canas MDAdmitting Provider: Ritika lobo MD[facility] COUNSEL: N/APayor: P ayor: [facility] HEALTH PLAN / Plan: [facility] HEALTH PLAN /Product Type: HMO /Secondary Payor : @SECINSGROUPNAME@Encephalopathy acute [G93.40]Gqd-qgkx-omfxfma adverse reactio n to medication [T88.7XXA]Htw-esoy-xpymysw adverse reaction to medication [T88.7XXA ]Patient Active Problem ListDiagnosis Code H/O gastric bypass Z98.84 Insomnia G47. 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 Seizure disorder (HCC) G40.909 Spells I [id number] Severe obesity (HCC) E66.01 Depression F32.9 Anxiety F41.9 Bipolar disorder (HCC) F31.9 Depressive disorder F32.9 Status post gastric bypass for ob esity Z98.84 Morbid obesity (HCC) E66.01 Mixed anxiety and depressive disorder F4 1.8 Vitamin D deficiency E55.9 Bipolar disorder with severe depression (HCC) F3 1.4 Encephalopathy acute G93.40 Adverse drug reaction, initial encounter T50.905 A Hcr-nfni-kweshbu adverse reaction to medication T88.7XXASocial HistorySubstan ce [...] Supporting Document(s ) ID Date Data Source [id number] 12/06/2019 07:40:06 AM EDT [facility] 1937: Patient found in bed resting quiet ly. [...] Supporting Document(s ) ID Date Data Source [id number] 12/06/2019 05:07:27 AM EDT [facility] Name Value Range Interpretation Description Data Sup porting Code Source(s) Document(s ) Gustavus 1.09 0.6-1.2 [facility] - Good [Moles/volu MMOL/L Gnosticism me] in Hospital Serum or Plasma ID Date Data Source [id number] 12/05/2019 07:59:09 PM EDT [facility] Name Value Range Interpretation Description Data Sup porting Code Source(s) Document(s ) Ammonia 16 UMOL/L 11-32 [facility] - Good [Moles/volum Gnosticism e] in Plasma Hospital ID Date Data Source [id number] 12/05/2019 07:56:38 PM EDT [facility] Name Value Range Interpretation Description Data Sup porting Code Source(s) Document(s ) Lactate 0.9 0.4-2.0 [facility] - Good [Moles/volu MMOL/L Gnosticism me] in Hospital Serum or Plasma ID Date Data Source [id number] 12/05/2019 06:42:57 PM EDT [facility] LTM EEG mark up designer complete. Day 1 LTM comm enced and LIVE via WIFI on [facility] 06/28 Name Value Range Interpretation Code Description Data Melani rce(s) Supporting Document(s ) ID Date Data Source [id number] 12/05/2019 06:07:34 PM EDT [facility] - [facility] [id number] [employer] [facility] 4T OR TH[facility]ED[facility] [address] [place] [address] [phone] Maxwell Bray (Male) [id number] I 3 ED Dispo:ADMIT Chief Complaint: Fall, Fatigue Diagnosis: Altered mental status, unspecified altered mental status type [] Adverse drug reaction, initial encounter [] Encephalopathy acute [] Aiz-dqts-zxzbkan adverse effect of medication, subsequent encounter [] Bipolar disorder with severe depression (HCC) [] H/O gastric bypass [] Curre nt Providers: Attending: Patsy Manzo; Kristy Otero; Cristi Canas Consulting Provider: Jose Centeno; Cristi Canas; Javier Khan; Cristi Frazier Primary Nurse: BAILEY GambleN: [phone] 5 [phone] [employer] [phone] - [facility] MrnMRN: [id number] [employer] [phone] - [facility] Age SexDOB 1970 AGE 49 SEX Male Primary Care Provider: Ritika Canas MD Phone: Allergies: (No Known Allergies)Date Reviewed: 12/05/2019Reviewed by: Ritika Canas MD - Review CompleteED Provider Notes: All notesHNO ID: [id number]: Julio Manzo MDService: EMERGENCYAuthor Type: Physici anFiled: [...] morbidity or mortality cardiac cath at [facility] approx 6-8 months ag o Other [...] week Gets together: Once a week Attends taoist service: More than 4 times per year [...] Calculation (Bez et) 515 ms Calculated P [place] 40 degrees Calculated R [place] 41 degrees Calculated T [place] 147 degrees Diagnosis Sinus tachycardiaProbable left atrial [...] Time: 12/05/19 12:38 PMResult Value Ref Range Gustavus level 1 .53 (HH) 0.6 - 1.2 [...] mental status, unspecified altered mental status type R41.90409.97Patient c ondition at time of disposition: StableI have reviewed the following home medications:Prior to Admission medi cationsMedication Sig Start Date End Date Taking? Authorizing ProviderrisperiDONE (RisperDAL) 2 mg tab let Take 1 Tab by mouth daily. 12/04/19Cox, Ritika, MDamitriptyline (ELAVIL) 100 mg tablet 200 mg. [...] es dailyas needed. Other, Phys, MagalyoJulio MD I, Joseph Silber, am serving as a scribe to document servi jaxon personallyperformed by Julio Manzo MD based on my observation and the provider'sstatements to me.Elan Vasquez D ennis, MD, attest that the person(s) noted above, acting as myscribe(s) noted above, has observed my performance of the services and hasdocumented them in accordance with my direction. I have personallyreviewed the above information and have ordered and reviewed thediagnostic studies, unless otherwise noted.+ED Orde rs [id number] 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 [#[id number]] Priority: STAT Class: Hospital Performe d Standing Order Information Remaining Occurrences:0/1 Interval:Continuous Last release d:12/05/2019 Released orders: SunDec 05, 2019 11:20 AM by: JULIO MANZO Type: -> Bedside N [id number] PULSE OXIMETRY CONTINUOUS [#[id number]] Priority: STAT Class: Hospital Performe d Standing Order Information Remaining Occurrences:0/1 Interval:CONTINUOUS Last release d:12/05/2019 Released orders: SunDec 05, 2019 11:20 AM by: JULIO MANZO [id number] PULSE OXIMETRY SPOT CHECK [#[id number]] Priority: STAT Class: Hospital Performed Standing Order Inf ormation Remaining Occurrences:0/1 Interval:ONE TIME Last released:12/05/2019 Release d orders: SunDec 05, 2019 11:20 AM by: JULIO MANZO [id number] OBTAIN OLD EKG [ #[id number]] Priority: Routine Class: Hospital Performed Standing Order Information Remainin g Occurrences:0/1 Interval:ONE TIME Last released:12/05/2019 Released orders : SunDec 05, 2019 11:20 AM by: JULIO [id number] 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 [# [id number]] Priority: STAT Class: Hospital Performed Type: -> Bedside Released on: 12/05/2019 11:20 AM [id number] PULSE OXIMETRY CONTINUOUS [#[id number]] Priority: STAT Class: Hospital Performe d Released on: 12/05/2019 11:20 AM [id number] PULSE OXIMETRY SPOT CHECK [#[id number]] Priori ty: STAT Class: Hospital Performed Released on: 12/05/2019 11:20 AM [id number] OBTAIN OLD EKG [#[id number]] Priority: STAT Class: Hospital Performed Released on: 12/05/2019 11:20 AM [id number] VITAL SIGNS PER UNIT ROUTINE [#[id number]] Priority: STAT Class: Hospital Performed Stand ing Order Information Remaining Occurrences:0/1 Interval:CONTINUOUS Last released :12/05/2019 Released orders: SunDec 05, 2019 2:41 PM by: RITIKA CANAS Comment:More frequent ly if Indicated. [id number] BEDREST, COMPLETE [#[id number]] Priority: STAT Class: H ospital Performed Standing Order Information Remaining Occurrences:0/1 Interval:CONTIN UOUS Last released:12/05/2019 Released orders: SunDec 05, 2019 2:41 PM by: RITIKA CANAS [id number] NOTIFY PROVIDER: VITAL SIGNS CHANGES [#[id number]] Priority: STAT Class: Hospital Performe d Standing [...] Less than 120 ml in 4 hours [id number] APPLY/MAINTAIN SEQUENTIAL COMPRESSIO* [# [id number]] Priority: STAT Class: Hospital Performed Standing Order Information Remaining Occurre nces:0/1 Interval:CONTINUOUS Last released:12/05/2019 Released orders: SunDec 05, 2019 2:41 PM by: RITIKA CANAS [id number] VITAL SIGNS PER UNIT ROUTINE [#[id number]] Priorit y: STAT Class: Hospital Performed Comment:More frequently if Indicated. Released on: 12/05/2019 2 :41 PM [id number] BEDREST, COMPLETE [#[id number]] Priority: STAT Class: Hospital Performe d Released on: 12/05/2019 2:41 PM [id number] NOTIFY PROVIDER: VITAL SIGNS CHANGES [#[id number]] Priority: STAT Class: Hospital Performed Temp -> [...] carmen rs Released on: 12/05/2019 2:41 PM [id number] APPLY/MAINTAIN SEQUENTIAL COMPRESSIO* [#[id number]] P riority: STAT Class: Hospital Performed Released on: 12/05/2019 2:41 PM [id number] RT--OXYGEN CANNULA [#[id number]] Priority: STAT Class: Hospital Performed Standing Order Information Remaining Occurrences:0/1 Interval:CONTINUOUS Last released:12/05/2019 Released o rders: SunDec 05, 2019 11:20 AM by: JULIO MANZO LPM -> 2 Indications for O2? -> CHEST PAIN [id number] RT--OXYGEN CANNULA [#[id number]] Priority: STAT Class: Hospital Performe d LPM -> 2 Indications for O2? -> CHEST PAIN Released on: 12/05/2019 11:20 AM [id number] DIET NPO [#[id number]] Canceled Priority: STAT Class: Hospital Performed Cancele d by RITIKA CANAS on SunDec 05, 2019 2:41 PM Reason: None Comment: Standing Order Information Remaining Occurrences:0/1 Interval:DIET EFFECTIVE NOW Last released:12/05/2019 Release d orders: SunDec 05, 2019 11:20 AM by: JULIO MANZO NPO options: -> With Meds [id number] DIET NPO [#[id number]] Canceled Priority: STAT Class: Hospital Performed Cancele d by RITIKA CANAS on SunDec 05, 2019 2:41 PM Reason: None Comment: NPO options: -> With Meds Released on: 12/05/2019 11:20 AM [id number] DIET NPO [#[id number]] Priority: S TAT Class: Hospital Performed Standing Order Information Remaining Occurrences:0/1 Inter haile:DIET EFFECTIVE NOW Last released:12/05/2019 Released orders: SunDec 05, 2019 2:41 PM by: RITIKA [id number] DIET NPO [#[id number]] Priority: STAT Class: H ospital Performed Released on: 12/05/2019 2:41 PM [id number] SALINE LOCK IV [#[id number]] Priority: STAT Class: Hospital Performed Standing Order Information Remaining Occurrences:0 /1 Interval:ONE TIME Last released:12/05/2019 Released orders: SunDec 05, 2019 11:20 AM by: JULIO MANZO IVT11 SALINE LOCK IV [#[id number]] Priority: STAT Cl ass: Hospital Performed Released on: 12/05/2019 11:20 AM [id number] METABOLIC PANEL, COMPREHENSIVE [# [id number]] Priority: STAT Class: ER Collect Standing Order Information Remaining Occurrences:0 /1 Interval:ONE TIME Last released:12/05/2019 Released orders: SunDec 05, 2019 11:20 AM by: JULIO MANZO [id number] CBC WITH AUTOMATED DIFF [#[id number]] Priority: STAT Cl ass: ER Collect Standing Order Information Remaining Occurrences:0/1 Interval:ONE TI ME Last released:12/05/2019 Released orders: SunDec 05, 2019 11:20 AM by: JULIO MANZO [id number] TROPONIN I [#[id number]] Priority: STAT Class: ER Collect Sta nding Order Information Remaining Occurrences:0/1 Interval:ONE TIME Last released:0 12/05/2019 Released orders: SunDec 05, 2019 11:20 AM by: JULIO MANZO [id number] MAGNESIUM [#[id number]] Priority: STAT Class: ER Collect Standing Order Information Remaining Occurrences:0/1 Interval:ONE TIME Last released:12/05/2019 Released orders : SunDec 05, 2019 11:20 AM by: JULIO MANZO [id number] LACTIC ACID [#[id number]] Priority: STAT Class: ER Collect Standing Order Information Remaining Occurrences:0/2 Interval:NOW THEN EVERY 4 HOURS Last released:12/05/2019 Released orders: SunDec 05, 2019 12:06 PM by: JULIO MANZO SunDec 05, 2019 11:20 AM by: JULIO MANZO [id number] PROTHROMBIN TIME + INR [#[id number]] Priority: STAT Class: ER Collect Standing Order Information Remain ing Occurrences:0/1 Interval:ONE TIME Last released:12/05/2019 Released orders : SunDec 05, 2019 11:20 AM by: JULIO MANZO [id number] URINALYSIS W/ RFLX MICROSCOPIC [# [id number]] Priority: STAT Class: ER Collect Standing Order Information Remaining Occurrences:0 /1 Interval:ONE TIME Last released:12/05/2019 Released orders: SunDec 05, 2019 11:20 AM by: JULIO MANZO [id number] METABOLIC PANEL, COMPREHENSIVE [#[id number]] Priority: STAT Cl ass: ER Collect Specimen Source: Plasma Specimen Collected: 12/05/2019 12:38 PM Resulting Agency: [facility] Test ID: MPL Released on: 12/05/2019 11:20 AM [id number] CBC WITH A UTOMATED DIFF [#[id number]] Priority: STAT Class: ER Collect Specimen Source: Whole Blood S pecimen Collected: 12/05/2019 12:38 PM Resulting Agency: [facility] Test ID: [id number] Released on: 12/05/2019 11:20 AM [id number] TROPONIN I [#[id number]] Prior ity: STAT Class: ER Collect Specimen Source: Plasma Specimen Collected: 12/05/2019 12:38 PM Resultin g Agency: [facility] Test ID: TROIP Released on: 12/05/2019 11:20 AM [id number] MAGNESIUM [#[id number]] Priority: STAT Class: ER Collect Specimen Source : Plasma Specimen Collected: 12/05/2019 12:38 PM Resulting Agency: [facility] Test ID: MGPL Released on: 12/05/2019 11:20 AM [id number] LACTIC ACID [#[id number]] P riority: STAT Class: ER Collect Specimen Source: Plasma Specimen Collected: 12/05/2019 12:40 PM Resultin g Agency: [facility] Test ID: LAC Released on: 12/05/2019 11:20 AM [id number] PROTHR OMBIN TIME + INR [#[id number]] Priority: STAT Class: ER Collect Specimen Source: Plasma Spe cimen Collected: 12/05/2019 12:38 PM Resulting Agency: [facility] Test ID: APTHR R eleased on: 12/05/2019 11:20 AM [id number] URINALYSIS W/ RFLX MICROSCOPIC [#[id number]] Prior ity: STAT Class: ER Collect Specimen Source: Urine Specimen Collected: 12/05/2019 2:45 PM Magan colin Agency: [facility] Test ID: UA Released on: 12/05/2019 11:20 AM [id number] CAMILAU M [#[id number]] Priority: STAT Class: ER Collect Standing Order Information Remaining Occurrences:0/1 Interval:ONE TIME Last released:12/05/2019 Released orders : SunDec 05, 2019 11:40 AM by: MECHELLE GAMBLE [id number] LITHIUM [# [id number]] Priority: STAT Class: ER Collect Specimen Source: Serum Specimen Collected: 12/05/2019 12 :38 PM Resulting Agency: [facility] Test ID: LI Released on: 12/05/2019 11:40 AM [id number] LITHIUM [#[id number]] Canceled Priority: STAT Class: ER Collect Canceled by TENA, LAB IN [facility] on SunDec 05, 2019 11:42 AM Reason: Other Comment: Duplicate Standing Order Information Remaining Occurrences:0/1 Interval:ONE TIME Last released:0 12/05/2019 Released orders: SunDec 05, 2019 11:41 AM by: JULIO MANZO [id number] LITHIUM [#[id number]] Canceled Priority: STAT Class: ER Collect Specimen Collected: 12/05/2019 11:45 AM Resulting Agency: [facility] Test ID: LI Canceled by TENA, LAB IN SUNQUEST on SunDec 05, 2019 11:42 AM Reason: Other Comment: Duplicate Rele ased on: 12/05/2019 11:41 AM [id number] LACTIC ACID [#[id number]] Priority: STAT Cl ass: ER Collect Resulting Agency: [facility] Test ID: LAC Released on: 12/05/2019 12:06 PM [id number] AMMONIA [#[id number]] Priority: Routine Class: ER Collect Specimen Source: Blood Standing Order Information Remaining Occurrences:0/1 Interval:ONE TI ME Last released:12/05/2019 Released orders: SunDec 05, 2019 3:19 PM by: Javier KHAN [id number] AMMONIA [#[id number]] Priority: STAT Class: ER Collect Spe cimen Source: Blood Resulting Agency: [facility] Test ID: NH3 Released on: 12/05/2019 3:19 PM [id number] BILIRUBIN, CONFIRM [#[id number]] Priority: Routine Class : ER Collect Resulting Agency: [facility] Test ID: ICTO Standing Order Informat ion Remaining Occurrences:0/1 Released orders: SunDec 05, 2019 2:45 PM by: Automatic B atch Process [id number] BILIRUBIN, CONFIRM [#[id number]] Priority: Routine Class : ER Collect Specimen Source: Miscellaneous sample Specimen Collected: 12/05/2019 2:45 PM Resultin g Agency: [facility] Test ID: ICTO Released on: 12/05/2019 2:45 PM [id number] EKG, 12 LEAD, INITIAL [#[id number]] Priority: STAT Class: Hospital Performed Stand ing Order Information Remaining Occurrences:0/1 Interval:ONE TIME Last released:0 12/05/2019 Released orders: SunDec 05, 2019 11:20 AM by: JULIO MANZO Reason for Exam: -> Chest Pain [id number] EKG, 12 LEAD, INITIAL [#[id number]] Priority: STAT Class: H ospital Performed Resulting Agency: [facility] Test ID: [id number] Reason for Exam: -> Chest Pain Releas ed on: 12/05/2019 11:20 AM [id number] XR CHEST PORT [#[id number]] Priority: STAT Clas s: Hospital Performed Standing Order Information Remaining Occurrences:0/1 Interval:ONE TI ME Last released:12/05/2019 Released orders: SunDec 05, 2019 11:20 AM by: JULIO MANZO Reason for Exam -> Chest Pain [id number] CT HEAD WO CONT [#[id number]] Priority: S TAT Class: Hospital Performed Standing Order Information Remaining Occurrences:0/1 Inter haile:ONE TIME Last released:12/05/2019 Released orders: SunDec 05, 2019 11:20 AM by: JULIO MANZO Reason for Exam -> ams [id number] XR PELV AP ONLY [#[id number]] Priority: S TAT Class: Hospital Performed Standing Order Information Remaining Occurrences:0/1 Inter haile:ONE TIME Last released:12/05/2019 Released orders: SunDec 05, 2019 11:20 AM by: JULIO MANZO Reason for Exam -> fall [id number] XR CHEST PORT [#[id number]] Priority: STAT Class: Hospital Performed Specimen Collected: 12/05/2019 12:21 PM Resulting Agency: [facility] Test ID: [id number] Reason for Exam -> Chest Pain Released on: 12/05/2019 11:[id number] HEAD WO CONT [#[id number]] Priority: STAT Class: Hospital Performed Specimen Collected : 12/05/2019 12:43 PM Resulting Agency: [facility] Test ID: [id number] Reason for Exam -> ams R eleased on: 12/05/2019 11:20 AM [id number] XR PELV AP ONLY [#[id number]] Priority: STAT Class: Hospital Performed Specimen Collected: 12/05/2019 12:23 PM Resulting Agency: [facility] Test ID : [id number] Reason for Exam -> fall Released on: 12/05/2019 11:20 AM [id number] MRI BRAIN WO CONT [#[id number]] Priority: STAT Class: Hospital Performed Standing Order Information Remaining Occurrences:0/1 Interval:ONE TIME Last released:12/05/2019 Released orders : SunDec 05, 2019 3:19 PM by: JOSE KHAN Reason for Exam -> ams [id number] MRI BRA IN WO CONT [#[id number]] Priority: STAT Class: Hospital Performed Specimen Collected : 12/05/2019 5:03 PM Resulting Agency: [facility] Test ID: [id number] Reason for Exam -> ams R eleased on: 12/05/2019 3:19 PM [id number] CULTURE, BLOOD [#[id number]] Priority: Routi ne Class: ER Collect Specimen Source: Blood Standing Order Information Remaining Occurrences:0 /1 Interval:ONE TIME Last released:12/05/2019 Released orders: SunDec 05, 2019 11:20 AM by: JULIO [id number] CULTURE, BLOOD [#[id number]] Priority: STAT Cl ass: ER Collect Specimen Source: Blood Standing Order Information Remaining Occurrences:0/1 I nterval:ONE TIME Last released:12/05/2019 Released orders: SunDec 05, 2019 11:20 AM by: JULIO MANZO [id number] CULTURE, BLOOD [#[id number]] Priority: STAT Class: E R Collect Specimen Source: Blood Specimen Collected: 12/05/2019 12:38 PM Resulting Agency: [facility] Test ID: HBCS Released on: 12/05/2019 11:20 AM [id number] CULTURE, BLOOD [#[id number]] Priority: STAT Class: ER Collect Specimen Source: Blood Specimen Collected: 12/04 12:30 PM Resulting Agency: [facility] Test ID: HBCS Released on: 12/05/2019 11:20 AM CEFTRIAXONE 1 GRAM IVPB MBP [#[id number]] Priority: STAT Class: Normal An tibiotic Indications -> Sepsis of Unknown Etiology SODIUM CHLORIDE 0.9 % IV [#[id number]] Priority: STAT Class: Normal SODIUM CHLORIDE 0.9 % IV [#[id number]] Priority : STAT Class: Normal ENOXAPARIN 40 MG/0.4 ML SUB-Q SYRINGE [#[id number]] Priority: STAT Class: N ormal ENOXAPARIN 40 MG/0.4 ML SUB-Q SYRINGE [#[id number]] Priority: STAT Class: Normal FUROSEMIDE 10 MG/ML IJ SOLN [#[id number]] Priority: STAT Class: Normal CON53 IP CONSULT TO PS YCHIATRY [#[id number]] Priority: STAT Class: Hospital Performed Standing Order Information Remaining Occurrences:0/1 Interval:ONE TIME Last released:12/05/2019 Released orders : SunDec 05, 2019 11:42 AM by: JULIO MANZO Reason for Consult: -> si Did you call or spea k to the consulting provider? -> No Consult To -> si CON53 IP CONSULT TO PSYCHIATRY [#[id number]] Priority: STAT Class: Hospital Performed Reason for Consult: -> si Did you call or spea k to the consulting provider? -> No Consult To -> si Released on: 12/05/2019 11:42 AM CON62 IP CON SULT TO INTERNAL MEDICINE [#[id number]] Priority: STAT Class: Hospital Performed Standing Order Inf ormation Remaining Occurrences:0/1 Interval:ONE TIME Last released:12/05/2019 Release d orders: SunDec 05, 2019 2:16 PM by: CARLA OTERO Reason for Consult: -> Altered mental st atDr. Corey helton to admit Did you call or speak to the consulting provider? -> Yes CON62 IP CONSULT TO INTERNAL MEDICINE [#[id number]] Priority: STAT Class: Hospital Performed Reason for Consu lt: -> Altered mental status, Dr. Canas to admit Did you call or speak to the consulting provider? -> Yes Released on: 12/05/2019 2:16 PM CON53 IP CONSULT TO PSYCHIATRY [#[id number]] Priority: STAT Class: Hospital Performed Standing Order Information Remaining Occurrences:0 /1 Interval:ONE TIME Last released:12/05/2019 Released orders: SunDec 05, 2019 2:41 PM by: RITIKA CANAS Reason for Consult: -> adverse med reaction Did you call or speak to t he consulting provider? -> No Consult To -> Dr Aguirre Schedule When? -> TODAY CON9 IP CONSULT TO N EUROLOGY [#[id number]] Priority: STAT Class: Hospital Performed Standing Order Information Remaining Occurrences:0/1 Interval:ONE TIME Last released:12/05/2019 Released orders : SunDec 05, 2019 2:41 PM by: RITIKA CANAS Reason for Consult: -> encephalopathy adverse drug reaction Did you call or speak to the consulting provider? -> No Consult To -> Dr Jacob Schedule When? -> TODAY CON53 IP CONSULT TO PSYCHIATRY [#[id number]] Priority: STAT Class: H ospital Performed Reason for Consult: -> adverse med reaction Did you call or speak to the consulting provider? -> No Consult To -> Dr Aguirre Schedule When? -> TODAY Released on: 12/05/2019 2:41 P M CON9 IP CONSULT TO NEUROLOGY [#[id number]] Priority: STAT Class: Hospital Performe d Reason for Consult: -> encephalopathy adverse drug reaction Did you call or speak to the consulting provider? -> No Consult To -> Dr Jacob Schedule When? -> TODAY Released on: 12/05/2019 2:41 P M [id number] INITIAL PHYSICIAN ORDER: OBSERVATION* [#[id number]] Priority: Routine Class: ADT Pend Trans milvia Standing Order Information Remaining Occurrences:0/1 Interval:ONE TIME Last release d:12/05/2019 Released orders: SunDec 05, 2019 2:00 PM by: LUZ ELENA GATES Patient Class: -> OBS ERVATION Admitting Diagnosis -> Encephalopathy acute Admitting Physician -> CARLA OTERO Attending Physician -> CARLA OTERO [id number] INITIAL PHYSICIAN ORDER: OBSERVATION* [#[id number]] Priority: Routine Class: ADT Pend Transfer Patient Class: -> OBSERVATION Admitting Diagnosis -> Encephalopathy acute Admitting Physician -> CARLA OTERO Attending Physician -> CARLA OTERO Released on: 12/05/2019 2:00 PM [id number] INITIAL PHYSICIAN ORDER: INPATIENT [#[id number]] Joan brayy: Routine Class: ADT Pend Transfer Standing Order [...] o- n- ) Admitting Diagnosis - > Ety-siqo-zqfxgjq adverse reaction to medication Admitting Physician -> RITIKA CANAS Physician -> RITIKA CANAS Estimated Length of Stay -> 5-7 Midnights Discharge Plan: -> Other (Specify) [id number] INITIAL PHYSICIAN ORDER: INPATIENT [#[id number]] Priority: Routine Class: ADT Pend Tr ansfer [...] i- o- n- ) Admitting Diagnosis -> Reu-zljj-mitwfze adverse reaction to medication Admitting Physician -> RITIKA CANAS Attending Physician -> MARY CANAS Estimated Length of Stay -> 5-7 Midnights Discharge Plan: -> Other (Specify) [id number] INITI AL PHYSICIAN ORDER: INPATIENT [#[id number]] Priority: Routine Class: ADT Pend Transfer Status: [...] i- o- n- ) Admitting Diagnosis -> Cuk-yykv-dlrgjyb adverse reaction to medication Admitting Physician -> RITIKA CANAS Attending Physician -> MARY CANAS Estimated Length of Stay -> 5-7 Midnights Discharge Plan: -> Other (Specify) Released on: 12/05/2019 2:41 PM [id number] INITIAL PHYSICIAN ORDER: INPATIENT [#[id number]] Priority: Routine Class : ADT Pend Transfer [...] o- n- ) Adm itting Diagnosis -> Tbt-ygxd-zalltwk adverse reaction to medication Admitting Physician -> RITIKA CANAS Attending Physician -> RITIKA CANAS Estimated Length of Stay -> 5-7 Midnights Discharge Plan: -> Other (Specify) Released on: 12/05/2019 2:41 PM COD2 FULL CODE [#[id number]] Priority: STAT Class: Hospital Performed Standing Order Information Remaining Occurrences:0 /1 Interval:CONTINUOUS Last released:12/05/2019 Released orders: SunDec 05, 2019 2:41 PM by: RITIKA CANAS COD2 FULL CODE [#[id number]] Priority: STAT Cl ass: Hospital Performed Released on: 12/05/2019 2:41 PM [id number] EEG 12-26 HR W/VIDEO [# [id number]] Priority: Routine Class: Hospital Performed Standing Order Information Remaining Occurre nces:0/1 Interval:ONE TIME Last released:12/05/2019 Released orders: SunDec 04 3:19 PM by: JOSE KHAN Reason for Exam: -> ams [id number] EEG 12-26 HR W/VIDEO [#[id number]] Priority: STAT Class: Hospital Performed Resulting Agency: [facility] Test ID: NEU1 [id number] Reason for Exam: -> ams Released on: 12/05/2019 3:19 Maxwell Corona MR#: [id number] * Rm: 441- 01Ht: 5' 5.75" Wt: 300 lb Code: Full Code Iso:Diagnosis:Encep halopathy acute [G93.40]Allergies: No Known Allergies -------- Current as of: 12/05/191806 NB=New Bag --aspirin (ASPIRIN) tablet 325 mg #[id number] Admin Amount: 1 Tab (1 x 325 mg Tab) Ordered Dose: 325 mg Route: Oral Freq: ONCE Start Date: 12/24/13 No administration times (back 96 hours, ahead 96 hours). ------diphenhydrAMINE (BENADRYL) capsule 50 mg #[id number] Admin Amount: 1 Cap (1 x 50 mg Cap) Ordered Dose: 50 mg Route: Ora l Freq: NOW Start Date: 12/24/13 No administration times (back 96 hours, ahe ad 96 hours). ------diazepam (VALIUM) tablet 5 mg #[id number] Admin Amount: 1 Tab (1 x 5 mg Tab) Ordered Dose: 5 mg Route: Oral Freq: ON CE Start Date: 12/24/13 No administration times (back 96 hours, ahead 96 hours). ------lidocaine (XYLOCAINE) 10 mg/mL (1 %) injection 1-30 mL #[id number] Admin Amount: 1-30 mL Ordered Dose: 1-30 mL Route: IntraDERMal Freq: ONCE Start Date: 12/24/13 No administration times (back 96 hours, ahead 96 hours). ------heparin (PF) 2 units/ml in NS infusion 2,000 Units #[id number] Admin Amount: 1,000 mL = 2,000 Units of 2 Units/mL Ordered Dose: 1,000 mL Ro [place]: Irrigation Freq: ONCE Start Date: 12/24/13 No administration times (back 96 hours, ahead 96 hours). ------heparinized saline 2 units/mL infusion 1,000 Units #[id number] Admin Amount: 500 mL = 1,000 Units of 2 Units/mL Ordered Dose: 500 mL Ro [place]: IntraarTERial Freq: ONCE Start Date: 12/24/13 No administration times (back 96 hours, ahead 96 hours). ------0.9% sodium chloride infusion #[id number] Ordered Dose: 75 mL/hr Route: IntraVENous Freq: CONTINUOUS Start Date: 12/24/13 Rate: 75 mL/hr Duration: No administration times (back 96 hours, ahead 96 hours). ------ioversol (OPTIRAY) 320 mg iodine/mL contrast injection 1-100 mL #[id number] Admin Amount: 1-100 mL Ordered Dose: 1-100 mL Route: IntraVENous Freq: RAD O NCE Start Date: 12/24/13 No administration times (back 96 hours, ahead 96 hours).Maxwell Bray MR#: [id number] * Rm: 441-01Ht: 5' 5.75" Wt: 300 lb Cod e: Full Code Iso:Diagnosis:Encephalopathy acute [G93.40]Allergies: No Known Allergies -------- Current as of: 12/05/19 1807 NB=New Bag --gadobutrol (GADAVIST) contrast solution 1-10 mL #[id number] Admin Amount: 1-10 mL Ordered Dose: 1-10 mL Route: IntraVENous Freq: RAD O NCE Start Date: 01/13/14 No administration times (back 96 hours, ahead 96 hours). ------sodium chloride (NS) flush 5-10 mL #[id number] Admin Amount: 5-10 mL Ordered Dose: 5-10 mL Route: IntraVENous Freq: RAD ONCE Start Date: 01/13/14 No administration times (back 96 hours, ahead 96 hours). ------sodium chloride (NS) 0.9 % flush #[id number] Ordered Dose: Route: Freq: Start Date: 01/13 No administration times (back 96 hours, ahead 96 hours). ------morphine injection 2 mg #[id number] Admin Amount: 1 mL = 2 mg of 2 mg/mL Ordered Dose: 2 mg Route: IntraVENous Freq: NOW Start Date: 03/13/15 No administration times (back 96 hours, ahe ad 96 hours). ------influenza vaccine (4 yr+)(PF) (FLUCELVAX QUAD) inj ection 0.5*#[id number] Admin Amount: 0.5 mL Ordered Dose: 0.5 mL Route: IntraMUSCular Freq: PRIOR TO DISCHARGE Start Date: 03/30/16 No administration times (back 96 hours, ahead 96 hours). ------oxyCODONE-acetaminophen (PERCOCET) 5-325 mg per tablet 1 Tab #[id number] Admin Amount: 1 Tab Ordered Dose: 1 Tab Route: Oral Freq: NOW Start Date: 09/07/17 No administration times (back 96 hours, ahead 96 hours). ------barium sulfate (READICAT) 2.1 % (w/v), 2.0 % (w /w) oral suspension 9*#[id number] Admin Amount: 900 mL Ordered Dose: 900 mL Route: Oral Delgado q: RAD ONCE Start Date: 10/15/17 No administration times (back 96 hours, ahead 96 hours). ------iopamidol (ISOVUE 300) 61 % contrast injection 100 mL #[id number] Admin Amount: 100 mL Ordered Dose: 100 mL Route: IntraVENous Freq: RAD ONC E Start Date: 10/15/17 No administration times (back 96 hours, ahead 96 hours).Maxwell Bray MR#: [id number] * Rm: 441-01Ht: 5' 5.75" Wt: 300 lb Code: Full Code Iso:Diagnosis:Encephalopathy acute [G93.40]Allergies: No Known Allergies -------- Current as of: 12/05/191806 NB=New Bag --risperiDONE (RisperDAL m-tabs) disintegrating tablet 1 mg #[id number] Admin Amount: 1 Tab (1 x 1 mg Tab) Ordered Dose: 1 mg Route: Oral Freq: ONCE Start Date: 12/24/17 No administration times (back 96 hours, ahead 96 hours). ------ALPRAZolam (XANAX) tablet 2 mg #[id number] Admin Amount: 4 Tab (4 x 0.5 mg Tab) Ordered Dose: 2 mg Route: Ora l Freq: NOW Start Date: 12/24/17 No administration times (back 96 hours, ahe ad 96 hours). ------lamoTRIgine (LaMICtal) tablet 100 mg #[id number] Admin Amount: 1 Tab (1 x 100 mg Tab) Ordered Dose: 100 mg Route: Oral Delgado q: ONCE Start Date: 12/24/17 No administration times (back 96 hours, ahead 96 hours). ------OLANZapine (ZyPREXA zydis) disintegrating tablet 5 mg #[id number] Admin Amount: 1 Tab (1 x 5 mg Tab) Ordered Dose: 5 mg Route: Oral Delgado q: ONCE Start Date: 12/25/17 No administration times (back 96 hours, ahead 96 hours). ------LORazepam (ATIVAN) tablet 2 mg #[id number] Admin Amount: 4 Tab (4 x 0.5 mg Tab) Ordered Dose: 2 mg Route: Ora l Freq: NOW Start Date: 12/25/17 No administration times (back 96 hours, [facility] ad 96 hours). ------LORazepam (ATIVAN) injection 1 mg #[id number] Admin Amount: 0.5 mL = 1 mg of 2 mg/mL Ordered Dose: 1 mg Route: Int TrevorBrigette Freq: NOW Start Date: 12/25/17 No administration times (back 96 hours, [facility] ad 96 hours). ------barium sulfate (EZ PAQUE) 96 % (w/w) contrast suspension 17 6 g #[id number] Admin Amount: 176 g Ordered Dose: 176 g Route: Oral Freq: RAD ONCE Start Date: 08/02/18 No administration times (back 96 hours, ahead 96 hours). ------barium sulfate (EZ PAQUE) 96 % (w/w) contrast s uspension 176 g #[id number] Admin Amount: 176 g Ordered Dose: 176 g Route: Oral Delgado q: RAD ONCE Start Date: 08/02/18 No administration times (back 96 hours, ahead 96 hours).Maxwell Ritter MR#: [id number] * Rm: 441-01Ht: 5" Wt: 300 lb Cod e: Full Code Iso:Diagnosis:Encephalopathy acute [G93.40]Allergies: No Known Allergies -------- Current as of: 12/05/19 1807 NB=New Bag --aspirin chewable tablet 162 mg #[id number] Admin Amount: 2 Tab (2 x 81 mg Tab) Ordered Dose: 162 mg Route: Oral Freq: NOW Start Date: 08/10/19 No administration times (back 96 hours, ahead 96 hours). ------0.9% sodium chloride infusion 1,000 mL #[id number] Admin Amount: 1,000 mL Ordered Dose: 1,000 mL Route: IntraVENous Freq: ONC E Start Date: 08/16/19 Rate: 1,000 mL/hr Duration: No administration ti mes (back 96 hours, ahead 96 hours). ------methylPREDNISolone (PF) (Solu-MEDROL) injection 125 mg #[id number] Admin Amount: 2 mL = 125 mg of 125 mg/2 mL Ordered Dose: 125 mg Route: Int raVENous Freq: NOW Start Date: 08/16/19 No administration times (back 96 hours, ahe ad 96 hours). ------aspirin chewable tablet 162 mg #[id number] Admin Amount: 2 Tab (2 x 81 mg Tab) Ordered Dose: 162 mg Route: Oral Delgado q: NOW Start Date: 08/16/19 No administration times (back 96 hours, ahead 96 hours). ------haloperidoL (HALDOL) tablet 5 mg #[id number] Admin Amount: 1 Tab (1 x 5 mg Tab) Ordered Dose: 5 mg Route: Oral Delgado q: ONCE Start Date: 10/30/19 No administration times (back 96 hours, ahead 96 hours). ------cefTRIAXone (ROCEPHIN) 1 g in 0.9% sodium chloride (MBP/ADV) 50 m L M*#[id number] Admin Amount: 1 g Ordered Dose: 1 g Route: IntraVENous Freq: NOW Start Date: 12/05/19 Rate: 100 mL/hr Duration: 30 Minutes Administration linda es (back 96 hours, ahead 96 hours): 12/05/19: 1428NB -----0.9% sodium chloride infusion #[id number] Ordered Dose: 125 mL/hr Route: IntraVENous Freq: CONTINUOUS Start Date: 12/05/19 Rate: 125 mL/hr Duration: Administration times (back 96 hours, ahead 96 hours): 12/05/19: 1408NATALIEMaxwell Bray MR#: [id number] * Rm : 441-01Ht: 5' 5" Wt: 300 lb Code: Full Code Iso:Diagnosis:Encephalopathy acute [G93. 40]Allergies: No Known Allergies -------- Current as of: 12/05/191806 NB=New Bag --enoxaparin (LOVENOX) injection 40 mg #[id number] Admin Amount: 0.4 mL = 40 mg of 40 mg/0.4 mL Ordered Dose: 40 mg Ro [place]: SubCUTAneous Freq: EVERY 24 HOURS Start Date: 12/05/19 Administration times (back 96 h ours, ahead 96 hours): 12/05/19: 209912/06/19: 209912/07/19: 209912/08/19: 2099 ---furosemide (LASIX) injection 20 mg #[id number] Admin Amount: 2 mL = 20 mg of 10 mg/mL Ordered Dose: 20 mg Ro [place]: IntraVENous Freq: ONCE Start Date: 12/05/19 Administration [...] FileFollow-up Inf ormationFollow-up With:Ritika Canas MDDetails:Comments:Contact Info:[address] [facility] [address] Sheila [id number] Name Value Range Interpretation Code Description Data Melani rce(s) Supporting Document(s ) ID Date Data Source [id number] 12/05/2019 04:36:09 PM EDT [facility] The history is provided by the patient a jelly the EMS personnel.11:17 AM: Maxwell Bray is [...] morbidity or mortality cardiac cath at [facility] approx 6-8 months ag o Other [...] week Gets together: Once a week Attends taoist service: More than 4 times per year [...] yesIndependent visualization of images, tracings, or specimens: yesProcedElan Alvarado [...] QTC Calculation (Bezet) 515 ms Calculated P [place] 40 degrees Calculat ed R [place] 41 degrees Calculated T [place] 147 degrees Diagnosis Sinus tachycardiaProb able left [...] Time: 12/05/19 12:38 PMResult Value Ref Range Gustavus level 1.53 (HH) 0.6 - 1.2 MMOL/LLACTIC [...] cardiac monitoring, CXR, and head CT. Will stem crusher ocephin, IV fluids, and oxygen. Will consult [...] two (2) times daily asneeded. Other, Phys, Julio Izaguirre MD I, Joseph Silber, am serving as [...] Supporting Document(s ) ID Date Data Source [id number] 12/05/2019 04:05:06 PM EDT [facility] [address] [place] [address] [email or web address] CONSULT NOTEPatient: Maxwell Bray Se x: male [...] or sensory fuentes es. Lab significant of Gustavus 1.53 and elevatedliver enzymes. Neurology consult ed for encephalopathy/drug adverse reaction.Past Medical History:Diagnosis Date Other unknown and unspecified cause of morbidity or mortality cardiac cath at [facility] approx 6-8 months ago Other unknown [...] QTC Calculation (Bezet) 515 ms Calculated P [place] 40 degrees Calculated R [place] 41 degrees Calculated T [place] 147 degrees Diagnosis Sinus tachycardiaProbable left atrial [...] Time: 12/05/19 12:38 PMResult Value Ref Range Gustavus level 1.53 (HH) 0.6 - 1.2 MMOL/LLACTIC [...] were created on an independent workstation. [facility] the examination was performed to optimize image [...] maxillary sinus polyposis. 2. Otherwise unremarkablenon-contrast enhan lroenza CT of the brain.EKG:Results for orders placed or performed during the hospital encounter of 10/29/19EKG, 12 LEAD, INITIALResult Value Ref Range Ventricula r Rate 102 BPM Atrial Rate 102 BPM P-R Interval 174 ms QRS Duration 104 ms Q-T Interval 395 ms QTC Calculation (Bezet) 515 ms Calculated P [place] 40 degrees Calculat ed R [place] 41 degrees Calculated T [place] 147 degrees Diagnosis Sinus tachycardiaProb able left atrial enlargementAbnormal R-wave progression, early transitionNonspecific T abnormalities, lateral leadsProlonged QT intervalResults for orders placed or per formed in visit on 11/04/13AMB POC EKG ROUTINE W/ 12 LEADS, INTER & REP Impress ion EKG: sinus rhythm normal ECGAssessment:Patient Active Problem Lis tDiagnosis Code H/O gastric bypass Z98.84 Insomnia G47.00 Neuropathic pain of surekha monieder M79.2 Seizure disorder ([facility]) G40.909 Spells [id number] Severe obesity ([facility]) E66 .01 Depression F32.9 Anxiety F41.9 Bipolar disorder (HCC) F31.9 Depressive disorde r F32.9 Status post gastric bypass for obesity Z98.84 Morbid obesity ([facility]) E66 .01 Mixed anxiety and depressive disorder F41.8 Vitamin D deficiency E55.9 Bipol ar disorder with severe depression (HCC) F31.4 Encephalopathy acute G93.40 Adve rse drug reaction, initial encounter T50.905A Hoo-lhpi-pdooibz adverse reaction to me dication T88.7XXA49 year old male with pmh as stated above and now with AMS and genera lizedweakness - most likely secondary to lithium toxicity - ? Seizure.Plan: Mri Brain Ammonia Monitor lithium level daily EEG - 24 hrs Seizure precautionsPaulson Gerald Flores 2019 3:19 [id number] Name Value Range Interpretation Code Description Data Melani rce(s) Supporting Document(s ) ID Date Data Source [id number] 12/05/2019 03:37:45 PM EDT [facility] sbar-q given to Ev Dave tr tejalport to floor Name Value Range Interpretation Code Description Data Melani rce(s) Supporting Document(s ) ID Date Data Source [id number] 12/05/2019 03:29:57 PM EDT [facility] sbar-q given to Sheri UGALDE on floor Name Value Range Interpretation Code Description Data Melani rce(s) Supporting Document(s ) ID Date Data Source [id number] 12/05/2019 03:28:02 PM EDT [facility] History & PhysicalBrian Anam Bray is a [...] h igh dose amytriptylene 200 mg nightly, Gustavus, andVraylar 6 mg. :Gustavus level on prior admission therapeutic. Patient's wifecontactedthis [...] morbidity or mortality cardiac cath at [facility] approx 6-8 months ag o Other [...] week Gets together: Once a week Attends taoist service: More than 4 times per year [...] mg tablet 200 mg. 11/12/19 Provider, Sneha Otero 3 mg capsule Take 6 mg by mouth nightly. Prescription is 6 mg capsuleInd ications: bipolar depression 09/03/19 Provider, Historicallithium carbonate 15 0 mg capsule Take 300 mg by mouth two (2) times daily (withmeals). Other, Paul, MDclonazePAM (KLONOPIN) 2 mg tablet Take 1 mg by mouth two (2) times daily asneeded . Other, Phys, MDYessy Known AllergiesReview of Systems : Unable to [...] Calculati on (Bezet) 515 ms Calculated P [place] 40 degrees Calculated R [place] 41 degrees Elena culated T [place] 147 degrees Diagnosis Sinus tachycardiaProbable left atrial [...] Time: 12/05/19 12:38 PMResult Value Ref Range Gustavus level 1.53 (HH) 0.6 - 1.2 MMOL/LLACTIC ACID Collection Time: 12/04 12:40 PMResult Value Ref Range Lactic acid 1.1 0.4 - 2.0 MMOL/All lab results for the last 24 hours reviewed. Serun Gustavus level toxicAssessment/PlanPrinci pal Problem: Adverse drug reaction, initial encounter (12/05/2019) LithiumActive Prob lems: Encephalopathy acute (12/05/2019) Uhs-uzkz-kkojlqf adverse reaction to med ication (12/05/2019)Neuro, and psych evaluation, hydrationGeorge MD Corey Name Value Range Interpretation Code Description Data Melani rce(s) Supporting Document(s ) ID Date Data Source [id number] 12/06/2019 12:36:10 PM EDT [facility] Name Value Range Interpretation Description Data Sup porting Code Source(s) Document(s ) Service comment [facility] Bacteria [facility] identified in [facility] Unspecified Hospital specimen by Culture ID Date Data Source [id number] 12/05/2019 04:18:26 PM EDT [facility] Name Value Range Interpretation Description Data Sup porting Code Source(s) Document(s ) Color of Urine YEL Abnormal (applies [facility] - to non-numeric Good results) [facility] Appearance of CLEAR Abnormal (applies [facility] - Urine to non-numeric Good results) [facility] Specific gravity 1.033 1.003-1. Above high normal [facility] - of Urine by [address] [facility] pH of Urine by 5.5 4.6-8.0 [facility] - Test strip Good [facility] Protein 30 mg/dL NEG Abnormal (applies [facility] - [Mass/volume] in to non-numeric Good Urine by Test results) [facility] Glucose NEG [facility] - [Mass/volume] in Good Urine by [facility] Automated test Hospital strip Ketones 15 mg/dL NEG Abnormal (applies [facility] - [Presence] in to non-numeric Good Urine by results) [facility] Automated test [facility] strip Bilirubin.total NEG Abnormal (applies [facility] - [Presence] in to non-numeric Good Urine results) [facility] Hemoglobin NEG [facility] - [Presence] in Good Urine by Test [facility] Urobilinogen 1.0 0.2-1.0 [facility] - [Presence] in EU/dL Good Urine by [facility] Automated test Hospital strip Nitrite NEG [facility] - [Presence] in Good Urine by [facility] Automated test Hospital strip Leukocyte NEG [facility] - esterase Good [Presence] in [facility] Urine by Hospital Automated test strip Leukocytes 0-5 [facility] - [Presence] in Good Urine sediment [facility] by [facility] microscopy Erythrocytes 0-2 [facility] - [#/area] in Good Urine sediment [facility] by [facility] high power field Epithelial cells 0-10 [facility] - [#/area] in Good Urine sediment [facility] by [facility] high power field Bacteria NONE Abnormal (applies [facility] - [Presence] in to non-numeric Good Urine sediment results) [facility] by [facility] microscopy ID Date Data Source [id number] 12/05/2019 03:26:35 PM EDT [facility] Value Range Interpretation Description Data Sup porting Code Source(s) Document(s ) Bilirubin NEG [facility] [Presence] in [facility] Urine by Hospital Confirmatory method ID Date Data Source [id number] 12/05/2019 02:22:27 PM EDT [facility] I spoke to Dr. Canas regarding Observation Status. Dr. Canas said patient will bemade In Patient Status today. Name Value Range Interpretation Code Description Data Melani rce(s) Supporting Document(s ) ID Date Data Source [id number] 12/05/2019 02:03:27 PM EDT [facility] SW/Psych Screener attempted to meet with Pt for MH evaluation. Pt was foundlying on stretcher with his eyes open, staring at the wall. Cancellation Clerk knows this Ptfrom previous admission to the medical floor. When ask ed if Pt rememberedwriter, Pt appeared confused, but said he did. Pt stated he fell today, doesn'tremember how he was brought to the hospital. Pt appeared to be searching for hiswords and was having difficulty speaking. Pt unclear of where he is, stating"[place]" when asked where he was and "Sol[place]" when asked what month it was. Whenasked if Pt was exhibiting any feelings of S/I, H/I or A/V Hallucinatio ns, Ptresponded with, "No," and confirmed he has been compliant with his psychiatricm edications. Cancellation Clerk conferred with ER Attending, Dr. Manzo, who states that Ptwi ll most likely be medically admitted at this time.Krystina Centeno, HECTOR, CASAC-2 Name Value Range Interpretation Code Description Data Melani rce(s) Supporting Document(s ) ID Date Data Source [id number] 12/05/2019 12:53:37 PM EDT [facility] CT HEAD W/O CONTRASTPRIOR: Multiple: Mos t [...] Supporting Document(s ) ID Date Data Source [id number] 12/05/2019 01:31:37 PM EDT [facility] Name Value Range Interpretation Description Data Sup porting Code Source(s) Document(s ) Lactate 1.1 0.4-2.0 [facility] - Good [Moles/volu MMOL/L [facility]] in Hospital Serum or Plasma ID Date Data Source [id number] 12/10/2019 05:19:22 AM EDT [facility] Name Value Range Interpretation Description Data Sup porting Code Source(s) Document(s ) Service comment [facility] - [facility] Hospital Bacteria [facility] - Good identified in [facility] Unspecified Hospital specimen by Culture ID Date Data Source [id number] 12/05/2019 02:14:34 PM EDT [facility] Name Value Range Interpretation Description Data Sup porting Code Source(s) Document(s ) Gustavus 1.53 0.6-1.2 Above upper panic [facility] - Good [Moles/volu MMOL/L limits [facility] il] in Hospital Serum or Plasma CALLED TO AND READ BACK KERLINE GAMBLE 1414 12/05/19 [facility] MARY ID Date Data Source [id number] 12/05/2019 01:31:37 PM EDT [facility] Name Value Range Interpretation Description Data Sup porting Code Source(s) Document(s ) Troponin 0.00-0.05 [facility] - Good I.cardiac [facility] [Mass/volume Hospital ] in Serum or Plasma [...] to 1.50 ng/mL ID Date Data Source [id number] 12/05/2019 01:31:37 PM [facility] Name Value Range Interpretation Description Data Sup porting Code Source(s) Document(s ) Sodium 134 136-145 Below low normal [facility] - Good [Moles/volume] mmol/L [facility] in Serum or Hospital Plasma Potassium 3.5 3.5-5.1 [facility] - Good [Moles/volume] mmol/L [facility] in Serum or Hospital Plasma Chloride 104 98-107 [facility] - Good [Moles/volume] mmol/L [facility] in Serum or Hospital Plasma Carbon 26 21-32 [facility] - Good dioxide, total mmol/L [facility] [Moles/volume] Hospital in Serum or Plasma Anion gap in 7 mmol/L 10-20 Below low normal [facility] - Go od Serum or [facility] Plasma Hospital Glucose 127 74-106 Above high normal [facility] - Good [Mass/volume] mg/dL [facility] in Serum or Hospital Plasma Urea nitrogen 21 mg/dL 7-18 Above high normal [facility] - Good [Mass/volume] [facility] in Serum or Hospital Plasma Creatinine 0.94 0.70-1.3 [facility] - Good [Mass/volume] mg/dL 0 [facility] in Serum or Hospital Plasma Glomerular >60 [facility] - Good filtration [facility] rate/1.73 sq M Hospital predicted among blacks [Volume Rate/Area] in Serum or Plasma by Creatinine-bas ed formula (MDRD) Glomerular >60 [facility] - Good filtration [facility] rate/1.73 sq M Hospital predicted among non-blacks [Volume Rate/Area] in Serum or Plasma by Creatinine-bas ed formula (MDRD) (NOTE)Estimated GFR is calculated using the Modification of Diet in RenalDisease (MDRD) Study equation, reported for both Americans(GFRAA) and non- Americans (GFRNA), and normalized to 1.7 3v9brsa surface area. The physician must decide which [...] normal [facility] - Good Serum or Plasma [facility] ital Bilirubin.total 0.9 mg/dL 0.2-1.0 [facility] - Good [Mass/volume] in Serum or [facility] Plasma Alanine aminotransferase 34 U/L 13-61 [facility] - Good [Enzymatic activity/volume] [facility] in Serum or Plasma Aspartate aminotransferase 47 U/L 15-37 Above high [facility] - Good [Enzymatic activity/volume] normal [facility] in Serum or Plasma by With P-5'-P Alkaline phosphatase 171 U/L 45-117 Above high [facility] - Good [Enzymatic activity/volume] normal [facility] in Serum or Plasma Protein [Mass/volume] in 7.5 g/dL 6.4-8.2 [facility] - Good Serum or Plasma [facility] ital Albumin [Mass/volume] in 3.8 g/dL 3.5-4.7 [facility] - Good Serum or Plasma by [facility] Bromocresol purple (BCP) dye binding method Globulin [Mass/volume] in 3.7 g/dL 1.7-4.7 [facility] - Good Serum by calculation [facility] Albumin/Globulin [Mass 1.0 0.7-2.8 [facility] - Good Ratio] in Serum or Plasma [facility] ID Date Data Source [id number] 12/05/2019 01:31:37 PM EDT [facility] - Good [facility] Name Value Range Interpretation Description Data Sup porting Code Source(s) Document(s ) Magnesium 2.9 mg/dL 1.6-2.6 Above high normal [facility] - Good [Mass/volume] [facility] in Serum or Hospital Plasma ID Date Data Source [id number] 12/05/2019 01:20:04 PM EDT [facility] - [facility] Name Value Range Interpretation Description Data Sup porting Code Source(s) Document(s ) Prothrombin 10.6 sec 9.4-11.1 [facility] - Good time (PT) [facility] INR in 1.0 0.8-1.2 [facility] - Good Platelet poor [facility] plasma by [facility] Coagulation assay ID Date Data Source [id number] 12/05/2019 01:07:21 PM EDT [facility] - [facility] Name Value Range Interpretation Description Data Sup porting Code Source(s) Document(s ) Leukocytes 12.4 4.8-10.6 Above high normal [facility] - [#/volume] in K/uL Good Blood by [facility] Automated [facility] Erythrocytes 5.03 4.70-6.0 [facility] - [#/volume] in M/uL 0 Good Blood by [facility] Automated [facility] Hemoglobin 15.4 14.0-18. [facility] - [Mass/volume] in g/dL [address] [facility] Hematocrit 45.8 % 42.0-52. [facility] - [Volume 0 Good Fraction] of [facility] Blood by Hospital Automated count Erythrocyte mean 91.1 FL 81.0-94. [facility] - corpuscular 0 Good volume [Entitic [facility] volume] by Hospital Automated count Erythrocyte mean 30.6 PG 27.0-35. [facility] - corpuscular 0 Good hemoglobin [facility] [Entitic mass] [facility] by Automated count Erythrocyte mean 33.6 30.7-37. [facility] - corpuscular g/dL 3 Good hemoglobin [facility] [Mass/volume] by Automated count Erythrocyte 12.9 % 11.5-14. [facility] - distribution 0 Good width [Ratio] by [facility] Automated count Hospital Platelets 164 K/uL 130-400 [facility] - [#/volume] in [facility] Blood by [facility] Automated count [facility] Platelet mean 9.5 FL 9.2-11.8 [facility] - volume [Entitic Good volume] in Blood [facility] by Automated Hospital count Nucleated 0.0 PER 0 [facility] - erythrocytes/100 100 WBC Good leukocytes [facility] [Ratio] in Blood Hospital Nucleated 0.00 0.0-0.01 [facility] - erythrocytes K/uL Good [#/volume] in [facility] Segmented 80 % 48.0-72. Above high normal [facility] - neutrophils/100 0 Good leukocytes in [facility] Lymphocytes/100 8 % 18.0-40. Below low normal [facility] - leukocytes in 0 [facility] Monocytes/100 10 % 2.0-12.0 [facility] - leukocytes in [facility] Eosinophils/100 1 % 0.0-7.0 [facility] - leukocytes in [facility] Basophils/100 0 % 0.0-3.0 [facility] - leukocytes in [facility] Immature 0 % 0-0.5 [facility] - granulocytes/100 Good leukocytes in [facility] by Hospital Automated count Segmented 10.0 2.3-7.6 Above high normal [facility] - neutrophils K/UL Good [#/volume] in [facility] Lymphocytes 1.0 K/UL 0.9-4.2 [facility] - [#/volume] in [facility] Monocytes 1.2 K/UL 0.1-1.7 [facility] - [#/volume] in [facility] Eosinophils 0.1 K/UL 0.0-1.0 [facility] - [#/volume] in [facility] Basophils 0.0 K/UL 0.0-0.4 [facility] - [#/volume] in [facility] Immature 0.1 K/UL 0.0-0.17 [facility] - granulocytes Good [#/volume] in [facility] by Hospital Automated count Differential [facility] - cell count Good method - Blood [facility] Hospital ID Date Data Source [id number] 12/10/2019 05:19:23 AM EDT [facility] Name Value Range Interpretation Description Data Sup porting Code Source(s) Document(s ) Service comment [facility] Bacteria [facility] identified in [facility] Unspecified Hospital specimen by Culture ID Date Data Source [id number] 12/05/2019 12:24:35 PM EDT [facility] PELVIS one view.History: TraumaThe study is suboptimal due to the patient's body habitus.There is no evidence of fracture , dislocation, subluxation, bone erosion orarthritis.IMPRESSION: Grossly normal s tudy. Signing date/time: 12/05/2019 12:24 PMSigned by: CURTIS VARMA Name Value Range Interpretation Code Description Data Melani rce(s) Supporting Document(s ) ID Date Data Source [id number] 12/05/2019 12:23:11 PM EDT [facility] CHEST 1 view (s)HISTORY: Chest pain.COMP ARISON: [...] Supporting Document(s ) ID Date Data Source [id number] 12/05/2019 11:34:39 AM EDT [facility] BIBA for fall in the middle of the night while going to bathroomC/p left hip pain Name Value Range Interpretation Code Description Data Melani rce(s) Supporting Document(s ) ID Date Data Source [id number] 12/05/2019 11:21:27 AM EDT [facility] Please enter the current weight for this patient in [facility]. Thank you. Name Value Range Interpretation Code Description Data Melani rce(s) Supporting Document(s ) ID Date Data Source [id number] 11/23/2019 02:02:47 PM EDT [facility] Discharge SummaryPatient: Maxwell mackey Sex: male DOA: [...] E66.01ICD-9-CM: 278.01 07/19/2018 - Present Spells ICD-10-CM: [id number]: IMO00 01 04/08/2016 - Present Seizure disorder [...] tr eated with parenteral hydration with benefit k1renflilsdadkrdcfy responses. Of note i s fact that [...] Supporting Document(s ) ID Date Data Source [id number] 11/03/2019 09:41:35 PM EDT [facility] Verbal shift change report given to , RN (oncoming nurse) by Scott Beverly RN (offgoing nurse). Report included the fo llowing information SBAR, Kardex,Intake/Output, MAR and Recent Res ults. Name Value Range Interpretation Code Description Data Melani rce(s) Supporting Document(s ) ID Date Data Source [id number] 11/03/2019 03:34:07 PM EDT [facility] Per psych note, CM to confirm patient ap pt with psychiatristCall to Dr Mateo Méndez office # [phone], office [facility] ent aware of # to call to make his own appt, psychiatry info placed on [facility] ent states his will be coming [...] Network: Lives with Spouse, Own Home( [place] ,[phone])Confirm Follow Up Transport: FamilyThe Patient and/or Patient [...] Supporting Document(s ) ID Date Data Source [id number] 11/03/2019 02:45:48 PM EDT [facility] PHYSICAL THERAPY TREATMENTPatient: Maxwell Bray (49 y.o. [...] independent Rail Use: RightNeuro Re-Education:Sitting and louis robbin balance activityTherapeutic Exercises:UE and LE AROMTransfer training, [...] care was discussed with: Registered Nurse and patientMichael Dennis loff, PT, DPT Time Calculation: 18 mins Name Value Range Interpretation Code Description Data Melani rce(s) Supporting Document(s ) ID Date Data Source [id number] 11/03/2019 01:09:08 PM EDT [facility] General Daily Progress NoteAdmit Date: Hospital day: [...] past 8 hrs: BP Temp Pulse Resp AiN73011/03/19 0752 115 /76 97.6 F (36.4 C) 68 19 97 %11/02 700 - 11/02 1900In: -Out: 175 [Urine:175]10/31 1900 [...] Supporting Document(s ) ID Date Data Source [id number] 11/03/2019 10:52:30 AM EDT [facility] S/O patient has seen for follow up via V ideo . He is doing much better. Hedenies any auditory or visual hallucination any mor eHe has no suicidal or homicidal thoughtsHe reports that he sees Dr. marie every ot her weeksPt wants to follow up with Dr. Marie after dischargePlan continue on a ll current psychotropic medications Requesting field case manager to confirm his a ppointment with Dr. mariebefore he discharged Please re consult if n eeded Name Value Range Interpretation Code Description Data [facility] rce(s) Supporting Document(s ) ID Date Data Source [id number] 11/03/2019 07:12:34 AM EDT [facility] Bedside and Verbal shift change report g iven to Meño Rose RN (oncomingnurse) by June Ochoa RN (offgoing nurse). Repor t included the followinginformation SBAR, Kardex, Intake/Output, MAR, Recent Resul ts and Med Rec Status. Name Value Range Interpretation Code Description Data [facility] Supporting Document(s ) ID Date Data Source [id number] 11/02/2019 11:18:25 PM EDT [facility] Problem: Falls - Risk ofGoal: *Absence o [...] Harsh Scale and appropriate interventio ns in [facility].Outcome: Progressing Towards GoalNote: Pressure Injury Interv entions:Sensory [...] Supporting Document(s ) ID Date Data Source [id number] 11/02/2019 07:34:02 PM EDT [facility] Bedside shift change report given to GILLIAN KEATING (oncoming nurse) by Meño Rose(offgoing nurse). Report included the following information SBAR, Kardex andIntake/Output. Name Value Range Interpretation Code Description Data [facility] Supporting Document(s ) ID Date Data Source [id number] 11/02/2019 05:14:50 PM EDT [facility] Telehealth Progress NotePursuant to the emergency declaration [...] was conducted via [] Telephone [x] VideoconferenceDate: 11/02/2019Moraima Farnny mber: [id number]: Maxwell Rboin & Joe PROGRESS NOTE:Coordinated treatment team rounds conducted with psychiatrist, patient, nursesand/or drug abuse social worker present ; dis cussions held with field case manager and/or familymembers; Chart reviewed in full in cluding sourcing consultant notes, ancillary staffnotes, vitals and labs in [facility] EMR reviewed in full.SUBJECTIVE: Pt seen for first time on Video with my SW Mendy And RN , hereports less hallucinations , as they are still there in the morning But overall better since got back on vraylar told me was scheduled for ECT at [facility] but due to elective , it got [...] past 8 hrs: Temp Pulse Resp BP YuF606/10/20 1546 98.3 F (36.8 C) 84 18 [...] (LOVENOX) injection 40 mg 40 mg SubCUTAneous [id number] Medications:C urrent Facility-Administered MedicationsMedication Dose Route Frequen [...] ENOX) injection 40 mg 40 mg SubCUTAneous [id number]/PLAN:Continue current kalie atment as pt is stabalizingPatient [...] Supporting Document(s ) ID Date Data Source [id number] 11/02/2019 03:02:33 PM EDT [facility] General Daily Progress NoteAdmit Date: Hospital day: .tdSubjective:Patient more responsive, relates jumbled speech earlier today now cleared, alsorelates hallucinatory ideation "talking to his b evelyne who was swimming". Onquestioning benefit of Vraylar [...] (LOVENOX) injection 40 mg 40 mg SubCUTAneous [id number]:Patient Vitals for the past 8 hrs: BP Temp Pulse Resp S pO2/04/13 0748 120/85 98.2 F (36.8 C) 75 18 94 %11/01 700 - 11/01 190In: -Out: 570 [Urine:570]10/30 1900 - 11/01 0700In: [...] contrast. Sagittal and coronal reconstruction was performed.Uti INTERNET BUSINESS TRADERing occupational health and safety adviser algorithm the examination was performed to optimizeimaging [...] Supporting Document(s ) ID Date Data Source [id number] 11/02/2019 07:48:14 AM EDT [facility] Verbal shift change report given to Jody wells RN (oncoming nurse) by Juliane UGALDE (offgoing nurse). Report included the following information SBAR,Kardex, Intake/Output, MAR and Recent Results Name Value Range Interpretation Code Description Data Melani rce(s) Supporting Document(s ) ID Date Data Source [id number] 11/02/2019 05:41:52 AM EDT [facility] Patient AOX3 with periodic confusion. In bed watching TV. All med's given asordered by MD, tolerated well. Fall precaution m easures reinforced. Call bellwithin reach, bed in low position. Has urinal and comm ode at bedside. Voices nocomplaint at this time. Will continue to monitor pt. Name Value Range Interpretation Code Description Data Melani rce(s) Supporting Document(s ) ID Date Data Source [id number] 11/01/2019 08:46:30 PM EDT [facility] Problem: Falls - Risk ofGoal: *Absence o [...] Range Interpretation Code Description Data [facility] rce(s) Supporting Document(s ) ID Date Data Source [id number] 11/01/2019 08:00:09 PM EDT [facility] Verbal shift change report given to yL vitale RN (oncoming nurse) by SUSI Palacio (offgoing nurse). Report included the following information SBAR,Intake/Output, MAR and Recent Results. Name Value Range Interpretation Code Description Data [facility] rce(s) Supporting Document(s ) ID Date Data Source [id number] 11/01/2019 03:49:42 PM EDT [facility] Adult Progress NoteDate: 11/01/2019Account Number: [id number]: Maxwell Mendieta TrimbleDiagnosis: History of mood and [...] On e Bipolar disorder with severe depression (HCC) 10/29/2019 Mixed anxiety and depr essive disorder 09/04/2019 Vitamin D deficiency 09/04/2019 Anxiety 0 Bipolar disorder (HCC) 07/21/2019 Depressive disorder 07/21/2019 Status p ost gastric bypass for obesity 07/21/2019 Morbid obesity (HCC) 07/21/2019 Severe obesity (HCC) 07/19/2018 Spells 04/08/2016 Seizure disorder (HCC) 04/30/2014 Insom kacey 11/04/2013 H/O gastric bypass 06/12/2013Past Surgical History:Procedur e Laterality Date ABDOMEN SURGERY PROC UNLISTED gastric bypass 2009 HX GASTRIC BYPASS roue-en-y HX ORTHOPAEDIC 1985 aarthroscopic knee surgery HX ORTHOPAED IC 1990 broken footNo Known AllergiesSocial HistoryTobacco Use Smoking status: Same r Smoker Smokeless tobacco: Never UsedSubstance Use Topics [...] (LOVENOX) injection 40 mg 40 mg SubCUTAneous [id number] following information was reviewed and discussed: Patient [...] Supporting Document(s ) ID Date Data Source [id number] 11/01/2019 02:42:08 PM EDT [facility] General Daily Progress NoteAdmit Date: Hospital day: [...] past 8 hrs: BP Temp Pulse Resp SbU387/03/14 0715 101/67 98 F (36.7 C) 70 [...] Sagittal and coronal reconstr uction was performed.Utilizing occupational health and safety adviser algorithm the examination was performed to optimizeimaging [...] Prominent interstitial markings arefelt to reflect vascular cross country/track and field coach 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 Repeat PA andlateral views the chest are advised i f there is clinical concern for pneumoniaor congestive failure.Assessment:Active Pro blems: Bipolar disorder with severe depression (HCC) (10/29/2019)Plan:Improvin g status Name Value Range Interpretation Code Description Data Melani rce(s) Supporting Document(s ) ID Date Data Source [id number] 11/01/2019 07:08:12 AM EDT [facility] Verbal shift change report given to Chandrakant Albert RN (oncoming nurse) Colin Hoffmann RN (offgoing nurse). Report incl uded the following informationSBAR, Kardex, Intake/Output, MAR and Recent Results. Name Value Range Interpretation Code Description Data [facility] rce(s) Supporting Document(s ) ID Date Data Source [id number] 10/31/2019 07:59:03 PM EDT [facility] Verbal shift change report given to Shreya adrian RN (oncoming nurse) by SUSI Palacio (offgoing nurse). Report included the following information SBAR,Kardex, Intake/Output, MAR and Recent Results. Name Value Range Interpretation Code Description Data [facility] Supporting Document(s ) ID Date Data Source [id number] 10/31/2019 05:09:32 PM EDT [facility] Telehealth ConsultationPursuant to the e mergency declaration [...] [] Telephone [x] VideoconferenceSubjective:Patient: Maxwell BrayN #: [id number]: [id number]: 49 y.o. Sex: maleAdm it Date: 10/29/2019Attending: [...] week Gets together: Once a week Attends taoist service: More than 4 times per year [...] or mortal ity cardiac cath at [facility] approx 6-8 months ago Other unknown [...] past 8 hrs: BP Temp Pulse Resp UmK576/02/11 0754 120/60 97.2 F (36.2 C) 70 20 95 %MENTA L STATUS EXAM:FINDINGS WITHIN NORMAL LIMITS (WNL) UNLESS OTHERWISE STATED BELOW:Sens orium [id number] Well relatedAppearance: OverweightMotor Behavior: Not examined Speech: [...] Vraylar. Willattempt to restart it.Referral To: p harmacy re: non formulary drug.Ronal Aguirre MD 10/31/2019 3:38 PM Name Value Range Interpretation Code Description Data Melani rce(s) Supporting Document(s ) ID Date Data Source [id number] 10/31/2019 04:37:18 PM EDT [facility] [place] [address] [address] [address]KMIICOT: MAXWELL BRAYMRN: [id number]: [id number]#: [id number] DATE: 10/29/2019 CONSULTATIONHISTORY OF PRESENT ILLNESS: The [...] Klonopin.PAST MEDICAL HISTORY: Cardiac cath at [facility] six to eight months ago, concussions,periodic [...] back to his psychiatrist in the commu nit.Cognitively,he seems to be fair. His memory to [...] RONAL AGUIRRE, MDDD: 10/30/2019 14:44:41/BR /[id number] / [id number] Name Value Range Interpretation Code Description Data Melani rce(s) Supporting Document(s ) ID Date Data Source [id number] 10/31/2019 01:47:36 PM EDT [facility] General Daily Progress NoteAdmit Date: [...] 70 20 95 %No intake/output data recorded. 19010/30 0700In: 1792 [P.O.:592; I.V.:1200]Out: 1050 [Urine:1050] Physica [...] Supporting Document(s ) ID Date Data Source [id number] 10/31/2019 12:59:26 PM EDT [facility] physical Therapy TREATMENTPatient: Maxwell Bray [...] (0 - 10)Pain Intensity 1: (P) 0Activity Tolerance:Maria Eugenia juarez tolerated treatment well.Please refer to the flowsheet [...] Supporting Document(s ) ID Date Data Source [id number] 10/31/2019 07:10:46 AM EDT [facility] Bedside and Verbal shift change report g yesseniaen to Samy UGALDE (oncoming nurse)by Cristofer Valenzuela RN (offgoing nurse). Repo rt included the following information SBAR, Kardex, MARand Recent Results. Name Value Range Interpretation Code Description Data [facility] rce(s) Supporting Document(s ) ID Date Data Source [id number] 10/30/2019 11:27:14 PM EDT [facility] Problem: Falls - Risk ofGoal: *Absence o [...] Supporting Document(s ) ID Date Data Source [id number] 10/30/2019 08:09:55 PM EDT [facility] Susi Garcia called as pt has been [...] be ordered as non formulary also At [facility] Name Value Range Interpretation Code Description Data [facility] rce(s) Supporting Document(s ) ID Date Data Source [id number] 10/30/2019 08:06:30 PM EDT [facility] Telephoned Dr. Oc tompkins pt's c/o new sy mptoms of hallucinations. Orderedreceived, relayed to RN, SUSI Marroquin on blockers skiver Name Value Range Interpretation Code Description Data [facility] Supporting Document(s ) ID Date Data Source [id number] 10/30/2019 08:01:35 PM EDT [facility] Verbal shift change report given to Cecilia wells (oncoming nurse) by Samy Albert RN (offgoing nurse). Report included the fo llowing information SBAR, ProcedureSummary, Intake/Output, MAR and Recent Results. Name Value Range Interpretation Code Description Data [facility](s) Supporting Document(s ) ID Date Data Source [id number] 10/30/2019 02:58:51 PM EDT [facility] Problem: Mobility Impaired (Adult and Pe diatric)Goal: [...] or mortality cardiac cath at [facility] approx 6-8 months ago Other unknown [...] Home: NoneCritical Behavior:Neurologic State: AlertOrientation Level: Oriented J5Yhubssidc: Appropriate for age attention/concentrationSafety/Judgement: Awareness of environmentSkin:Strength:Strength: [...] Supporting Document(s ) ID Date Data Source [id number] 10/30/2019 02:50:37 PM EDT [facility] Telehealth ConsultationPursuant to the e [...] [] Telephone [] VideoconferenceSubjective:Patient: Maxwell BrayMRN #: [id number]: [id number]: 49 y.o. Sex: maleAdm it Date: 10/29/2019Attending: [...] Supporting Document(s ) ID Date Data Source [id number] 10/30/2019 02:06:26 PM EDT [facility] Care Management InterventionsPCP Verifie d by CM: YesPalliative Care Criteria Met (RRAT>21 & CHF Dx)?: NoMode of Transport at Discharge: Other (see comment)(family)Transition of Care Consu lt (CM Consult): Discharge PlanningPhysical Therapy Consult: NoOccupational Therapy Consult: NoSpeech Therapy Consult: NoCurrent Support Network: Lives with Spouse, Own Home( [place] [phone])Confirm Foll ow Up Transport: FamilyThe Patient and/or Patient Tree Expert was Provided with a Choice of Providerand [...] home with his , is completely independent [employer] COUNSEL, nohome DME. Patient normally works (pre-covid) and drives. CM dept roleexplained, patient is currently denying any HC or rehab needs and states hiswife will drive him home upon DC. PT eval is ordered and pending. CM dept laila lfollow if patient has any PT needs.CASE MANAGEMENT PSYCHOSOCIAL ASSESSMENTMaxwell Bray Admission Date: 10/29/2019MRN: [id number] of : 1970Current date: 10/30/2019DISCHARGE PLAN: homePatient Info rmation:Patients Preferred Name: brianPatient Arrived Via: StretcherTransferred from a [facility] facility: NoInformation Obtained From: PatientPatient Objects to Receiving Bloo d: NoMRSA Assessment: Not applicableAuditory Impairment: NoneRetired Read Only-Readmi t Risk ToolSupport Systems: Family member(s)History of Falls Within Past 3 Months: NoNeeds Assistance with Wound Care AND/OR Mgnt of O2, Nebulizer: NoRequires Financial, Physical and/or Educational Assistance With Medications: NoHistory o f Mental Illness: NoLiving Alone: NoPCP: Ritika Canas MDAdmitting Provider: Cristi Canas MDCH[facility] [place] COUNSEL: naPayor: Payor: [facility] / Plan: [facility]AN /Product Type: O /Cardiovascular Provider [employer] [facility] Payor: @[email or web address]@Bipolar disorder with severe depression (HCC) [F 31.4]Bipolar disorder with severe depression (HCC) [F31.4]Patient Active Problem List Diagnosis Code H/O gastric bypass Z98.84 Insomnia G47.00 Neuropathic pain of surekha ulder M79.2 Seizure disorder (HCC) G40.909 Spells R68.89 [...] Notes:Long-Term Care Insurance If Applicable Notes:Current Functioning:Aftab guage barriers: Notes:Understanding nature/impact of illness: Notes:Ability to participate in plan: Notes:Realistic Problem solving and planning: Notes:Adeq uate coping skills: Notes:Voodoo/Cultural barriers: Notes:If unable to assess or n ot applicable: Notes:Suicide Assessment:Primary Diagnosis or Primary Complaint of an Emotional Behavior Disorder: NoPatient is Currently Experiencing Depr ession: NoSuicidal Ideation/Attempts: NoHomicidal Ideation/Attempts: NoAlcohol /Drug Intoxication: NoHallucinations/Delusions: NoPending, A ctive, or Temporary Correction Orders: NoAggressive/Inappropriate Behavior: NoR eadmit Risk:Support Systems: Family member(s)Advanced Care Planning:Confirm Advance Directive: NoneDiscussed with the patient and all questions fully answered . He will call me ifany problems arise. Name Value Range Interpretation Code Description Data Melani rce(s) Supporting Document(s ) ID Date Data Source [id number] 10/30/2019 12:38:13 PM EDT [facility] General Daily Progress NoteAdmit Date: Hospital day: .tdSubjective:Patient markedly improved this am, speech now no rmal. Denies possibleinadvertent overdose of chronic meds. Accepting of psych consult . PT toevaluate. Claims symptoms of mild nausea. Meds reviewed claims to be takin gElavil G 150 mg HS ,Klonopin 1 mg twice a day, Gustavus 300 twice daily, Vraylar3 m g dailyCurrent [...] past 8 hrs: BP Temp Pulse Resp EgQ36510/30/19 0727 (!) 130/96 98 F (36.7 C) [...] Range Interpretation Code Description Data [facility] rce(s) Supporting Document(s ) ID Date Data Source [id number] 10/30/2019 07:52:05 AM EDT [facility] Verbal shift change report given to Chandrakant rosa RN (oncoming nurse) Tavares UGALDE (offgoing nurse). Report included the fo llowing information SBAR,Kardex, Procedure Summary, Intake/Output, MAR and Recent R esults. Name Value Range Interpretation Code Description Data [facility] rce(s) Supporting Document(s ) ID Date Data Source [id number] 10/30/2019 06:40:05 AM EDT [facility] Pt. AOX3, periodic confusion. Commode an d urinal at bedside. Seizure and fallprecaution measures in place. Voice s no complaint during shift . Name Value Range Interpretation Code Description Data [facility] rce(s) Supporting Document(s ) ID Date Data Source [id number] 10/30/2019 07:29:12 AM EDT [facility] Name Value Range Interpretation Description Data Sup porting Code Source(s) Document(s ) Sodium 139 136-145 [facility] - Good [Moles/volume] mmol/L [facility] in Serum or Hospital Plasma Potassium 3.6 3.5-5.1 [facility] - [facility] [Moles/volume] mmol/L [facility] in Serum or Hospital Plasma Chloride 110 98-107 Above high normal [facility] - Good [Moles/volume] mmol/L [facility] in Serum or Hospital Plasma Carbon 24 21-32 [facility] - Good dioxide, total mmol/L [facility] [Moles/volume] Hospital in Serum or Plasma Anion gap in 9 mmol/L 10-20 Below low normal [facility] - Go od Serum or [facility] Plasma Hospital Glucose 96 mg/dL 74-106 [facility] - [facility] [Mass/volume] [facility] in Serum or Hospital Plasma Urea nitrogen 10 mg/dL 7-18 [facility] - [facility] [Mass/volume] [facility] in Serum or Hospital Plasma Creatinine 0.81 0.70-1.3 [facility] - Good [Mass/volume] mg/dL 0 [facility] in Serum or Hospital Plasma Glomerular >60 [facility] - Good filtration [facility] rate/1.73 sq M Hospital predicted among blacks [Volume Rate/Area] in Serum or Plasma by Creatinine-bas ed formula (MDRD) Glomerular >60 [facility] - Good filtration [facility] rate/1.73 sq M Hospital predicted among non-blacks [Volume Rate/Area] in Serum or Plasma by Creatinine-bas ed formula (MDRD) Calcium 8.2 8.5-10.1 Below low normal [facility] - Good [Mass/volume] mg/dL [facility] in Serum or Hospital Plasma ID Date Data Source [id number] 10/30/2019 07:05:07 AM EDT [facility] Name Value Range Interpretation Description Data Sup porting Code Source(s) Document(s ) Leukocytes 4.8 K/uL 4.8-10.6 [facility] - [#/volume] in Good Blood by [facility] Automated count [facility] Erythrocytes 4.59 4.70-6.0 Below low normal [facility] - [#/volume] in M/uL 0 Good Blood by [facility] Automated count [facility] Hemoglobin 14.0 14.0-18. [facility] - [Mass/volume] in g/dL [address] [facility] Hematocrit 42.7 % 42.0-52. [facility] - [Volume 0 Good Fraction] of [facility] Blood by [facility] Automated count Erythrocyte mean 93.0 FL 81.0-94. [facility] - corpuscular 0 Good volume [Entitic [facility] volume] by [facility] Automated count Erythrocyte mean 30.5 PG 27.0-35. [facility] - corpuscular 0 Good hemoglobin [facility] [Entitic mass] Hospital by Automated count Erythrocyte mean 32.8 30.7-37. [facility] - corpuscular g/dL 3 Good hemoglobin [facility] Hospital [Mass/volume] by Automated count Erythrocyte 13.3 % 11.5-14. [facility] - distribution 0 Good width [Ratio] by [facility] Automated count Hospital Platelets 159 K/uL 130-400 [facility] - [#/volume] in Good Blood by [facility] Automated count Hospital Platelet mean 8.6 FL 9.2-11.8 Below low normal [facility] - volume [Entitic Good volume] in Blood [facility] by Automated Hospital count Nucleated 0.0 PER 0 [facility] - erythrocytes/100 100 WBC Good leukocytes [facility] [Ratio] in Blood [facility] Nucleated 0.00 0.0-0.01 [facility] - erythrocytes K/uL Good [#/volume] in [facility] Segmented 54 % 48.0-72. [facility] - neutrophils/100 0 Good leukocytes in [facility] Lymphocytes/100 32 % 18.0-40. [facility] - leukocytes in 0 [facility] Blood [facility] Monocytes/100 9 % 2.0-12.0 [facility] - leukocytes in [facility] Blood [facility] Eosinophils/100 5 % 0.0-7.0 [facility] - leukocytes in [facility] Basophils/100 1 % 0.0-3.0 [facility] - leukocytes in [facility] Immature 0 % 0-0.5 [facility] - granulocytes/100 Good leukocytes in [facility] Automated count Segmented 2.6 K/UL 2.3-7.6 [facility] - neutrophils Good [#/volume] in [facility] Lymphocytes 1.5 K/UL 0.9-4.2 [facility] - [#/volume] in [facility] Blood [facility] Monocytes 0.4 K/UL 0.1-1.7 [facility] - [#/volume] in [facility] Eosinophils 0.2 K/UL 0.0-1.0 [facility] - [#/volume] in [facility] Basophils 0.0 K/UL 0.0-0.4 [facility] - [#/volume] in [facility] Immature 0.0 K/UL 0.0-0.17 [facility] - granulocytes Good [#/volume] in [facility] Blood by [facility] Automated count Differential [facility] - cell count Good method - Blood [facility] ID Date Data Source [id number] 10/29/2019 07:40:21 PM EDT [facility] Verbal shift change report given to Wai rogers RN(oncoming nurse) by Elizabeth Meehan RN (offgoing nurse). Report included the fo llowing information SBAR, Kardex, EDSummary, Intake/Output, MAR and Recent Results. Name Value Range Interpretation Code Description Data Melani rce(s) Supporting Document(s ) ID Date Data Source [id number] 10/30/2019 06:54:22 PM EDT [facility] Name Value Range Interpretation Description Data Sup porting Code Source(s) Document(s ) Color of Urine YEL [facility] Appearance of CLEAR [facility] - Urine [facility] Specific gravity 1.015 1.003-1. [facility] - of Urine by [address] [facility] pH of Urine by 6.0 4.6-8.0 [facility] - Test strip [facility] Protein NEG [facility] - [Mass/volume] in Good Urine by Test [facility] Glucose NEG [facility] - [Mass/volume] in Good Urine by [facility] Automated test [facility] strip Ketones NEG [facility] - [Presence] in Good Urine by [facility] Automated test [facility] strip Bilirubin.total NEG [facility] - [Presence] in Good Urine [facility] Hemoglobin NEG [facility] - [Presence] in Good Urine by [facility] Urobilinogen 1.0 0.2-1.0 [facility] - [Presence] in EU/dL Good Urine by [facility] Automated test Hospital strip Nitrite NEG [facility] - [Presence] in Good Urine by [facility] Automated test [facility] strip Leukocyte NEG [facility] - esterase Good [Presence] in [facility] Urine by Hospital Automated test strip ID Date Data Source [id number] 10/29/2019 06:14:12 PM EDT [facility] Spoke with to clarify meds..correct doses obtained Name Value Range Interpretation Code Description Data Melani rce(s) Supporting Document(s ) ID Date Data Source [id number] 10/29/2019 06:01:22 PM EDT [facility] Pt unsure of dose of Vraylar will call w berta Name Value Range Interpretation Code Description Data Melani rce(s) Supporting Document(s ) ID Date Data Source [id number] 10/29/2019 03:56:40 PM EDT [facility] [id number] [facility] 4 GEMA [place] MED SURG [address] [place] [address] [phone]/12/12 Maxwell Bray (Male) [id number] ES I 2 ED Dispo:ADMIT Chief Complaint: Dysarthria, Lethargy Diagnosis: Altered mental status, unspecified altered mental statu s type [] Bipolar disorder with severe depression (HCC) [] Current Providers: Att ending: Cole Ernandez; Cristi Canas Consulting Provider: Cristi Canas Primary Nurse: Kristy Moss Tech: HERMANN GonzalesN: [id number] [employer] [id number] - Bs hsi [facility] MrnMRN: [id number] [employer] [id number] - Bshsi [facility] Age Sex 1970 AGE 49 SEX Male Primary Care Provider: Ritika Canas MD Nzzbyzvxx: (No Kn own Allergies)Date Reviewed: 10/29/2019Reviewed by: Ritika Canas MD - Review CompleteED Provider Notes: All no tesO ID: [id number]: Cristobal Ernandez MDService: -Author Type: PhysicianFiled: 10/29/19 [...] morbidity or mortality cardiac cath at [facility] approx 6-8 months ago Other unknown [...] week Gets together: Once a week Attends taoist service: More than 4 times per year [...] QTC Calculation (Bezet) 446 ms Calculated P [place] 53 degrees Calc ulated R [place] 68 degrees Calculated T [place] 0 degrees Diagnosis Sinus tachycardiaProlonged NE intervalNo nspecific intraventricular conduction delayCBC WITH AUTOMATED [...] Time: 10/29/19 10:45 AMResult Value Ref Range Gustavus level <0.20 (L) 0.6 - 1.2 MMOL/L [...] contrast. Sagittal and coronalreconstruction was performed. Utilizing occupational health and safety adviser algorithm theexaminationwas performed to optimize imaging quality [...] status, unspecified altered menta l status type R41.40467.97Patient condition at time of disposition: StableI have [...] d thediagnostic studies, unless otherwise noted.+ED Orders [id number] CBC WITH AUTOMATED DIFF [# [id number]] Priority: STAT Class: ER Collect Standing Order Information Remaining Occurrences:0 /1 Interval:ONE TIME Last released:10/29/2019 Released orders: SunOctober 29, 2019 11:02 AM by: CRISTOBAL ERNANDEZ [id number] METABOLIC PANEL, COMPREHENSIVE [#[id number]] Bridgette ority: STAT Class: ER Collect Standing Order Information Remaining Occurrences:0/1 Inter haile:ONE TIME Last released:10/29/2019 Released orders: SunOctober 29, 2019 11:02 AM by: CRISTOBAL WADE [id number] PROTHROMBIN TIME + INR [#[id number]] Priority: STAT Class: E R Collect Standing Order Information Remaining Occurrences:0/1 Interval:ONE TI ME Last released:10/29/2019 Released orders: SunOctober 29, 2019 11:02 AM by: BRIE ERNANDEZ [id number] PTT [#[id number]] Priority: STAT Class: ER Collect Speci men Source: Blood Standing Order Information Remaining Occurrences:0/1 Interval:ONE TI ME Last released:10/29/2019 Released orders: SunOctober 29, 2019 11:02 AM by: BRIE ERNANDEZ EN [id number] URINALYSIS W/ RFLX MICROSCOPIC [#[id number]] Priority: STAT Class: ER Collect Sta nding Order Information Remaining Occurrences:0/1 Interval:ONE TIME Last released:0 10/29/2019 Released orders: SunOctober 29, 2019 11:02 AM by: CRISTOBAL ERNANDEZ [id number] LITHIUM [#[id number]] Priority: STAT Class: ER Collect Standing Order Information Remaining Occurrences:0/1 Interval:ONE TIME Last released:10/29/2019 Released orders : SunOctober 29, 2019 11:02 AM by: CRISTOBAL ERNANDEZ [id number] CBC WITH AUTOMATED DIFF [# [id number]] Priority: STAT Class: ER Collect Specimen Source: Whole Blood Specimen Collected: 020 10:45 AM Resulting Agency: [facility] Test ID: [id number] Released on: 0 11:02 AM [id number] METABOLIC PANEL, COMPREHENSIVE [#[id number]] Priority: STAT Class: E R Collect Specimen Source: Plasma Specimen Collected: 10/29/2019 10:45 AM Resulting Agency: [facility] Test ID: MPL Released on: 10/29/2019 11:02 AM [id number] PROTHROMBIN TIME + IN R [#[id number]] Priority: STAT Class: ER Collect Specimen Source: Plasma Specimen Collec hyun: 10/29/2019 10:45 AM Resulting Agency: [facility] Test ID: [id number] Released o n: 10/29/2019 11:02 AM [id number] PTT [#[id number]] Priority: STAT Class: ER Collect Specimen Source: Plasma Specimen Collected: 10/29/2019 10:45 AM Resulting Agency: [facility] Test ID: APTT Released on: 10/29/2019 11:02 AM [id number] URINALYSIS W/ RFLX [place] CROSCOPIC [#[id number]] Priority: STAT Class: ER Collect Resulting Agency: [facility] Test ID: UA Released on: 10/29/2019 11:02 AM [id number] LITHIUM [#[id number]] Priority: STAT Class: ER Collect Specimen Source: Serum Specimen Collected: 10/28 10:45 AM Resulting Agency: [facility] Test ID: LI Released on: 10/29/2019 11:02 AM [id number] CBC WITH AUTOMATED DIFF [#[id number]] Priority: STAT Class: E R Collect Standing Order Information Remaining Occurrences:06/25 Interval:TOMORR OW AM [id number] METABOLIC PANEL, BASIC [#[id number]] Priority: STAT Class: ER Collect St anding Order Information Remaining Occurrences:06/25 Interval:TOMORROW AM [id number] CT HEAD W O CONT [#[id number]] Priority: Routine Class: Hospital Performed Standing Or mariano Information Remaining Occurrences:0/1 Interval:ONE TIME Last released:10/29/2019 Released orders: SunOctober 29, 2019 11:02 AM by: CRISTOBAL ERNANDEZ Reason for Exam -> ams [id number] XR CHEST PORT [#[id number]] Priority: STAT Class: Hospital Performe d Standing Order Information Remaining Occurrences:0/1 Interval:ONE TIME Last release d:10/29/2019 Released orders: SunOctober 29, 2019 11:02 AM by: CRISTOBAL ERNANDEZ Reason for Exam -> ams [id number] CT HEAD WO CONT [#[id number]] Priority: STAT Class: Hospital Perfo rmed Specimen Collected: 10/29/2019 11:54 AM Resulting Agency: [facility] Test ID: [id number] [place] son for Exam -> ams Released on: 10/29/2019 11:02 AM [id number] XR CHEST PORT [#[id number]] Priority: STAT Class: Hospital Performed Specimen Collected: 10/29/2019 12:16 PM Resultin g Agency: [facility] Test ID: [id number] Reason for Exam -> ams Released on: 10/29/2019 11:02 AM [id number] EKG, 12 LEAD, INITIAL [#[id number]] Priority: STAT Class: Hospital Performe d Standing Order Information Remaining Occurrences:0/1 Interval:ONE TIME Last release d:10/29/2019 Released orders: SunOctober 29, 2019 11:02 AM by: CRISTOBAL ERNANDEZ Reason for Exam : -> chest pain [id number] EKG, 12 LEAD, INITIAL [#[id number]] Priority: STAT Class: H ospital Performed Resulting Agency: [facility] Test ID: [id number] Reason for Exam: -> chest pain Releas ed on: 10/29/2019 11:02 AM [id number] POC GLUCOSE [#[id number]] Priority: STAT Cl ass: Hospital Performed Standing Order Information Remaining Occurrences:0/1 Interval:ONE TI ME Last released:10/29/2019 Released orders: SunOctober 29, 2019 11:02 AM by: BRIE ERNANDEZ EN [id number] POC GLUCOSE [#[id number]] Priority: STAT Class: Hospital Performe d Released on: 10/29/2019 11:02 AM [id number] VITAL SIGNS PER UNIT ROUTINE [#[id number]] Priorit y: STAT Class: Hospital Performed Standing Order Information Remaining Occurrences:0/1 Inte rval:CONTINUOUS Last released:10/29/2019 Released orders: SunOctober 29, 2019 2:54 PM by: RITIKA CANAS Comment:More frequently if Indicated. [id number] BEDREST, COMPLETE [#[id number]] Priority: STAT Class: Hospital Performed Standing Order Information Remainin g Occurrences:0/1 Interval:CONTINUOUS Last released:10/29/2019 Released orders : SunOctober 29, 2019 2:54 PM by: RITIKA CANAS [id number] NOTIFY PROVIDER: VITAL SIGNS CHANGES [# [id number]] Priority: STAT Class: Hospital Performed Standing Order [...] Less than 120 ml in 4 hours [id number] APPLY/MAINTAIN SEQUENTIAL COMPRESSIO* [#[id number]] Priority: ST AT Class: Hospital Performed Standing Order Information Remaining Occurrences:0/1 Inter haile:CONTINUOUS Last released:10/29/2019 Released orders: SunOctober 29, 2019 2:54 PM by: RITIKA CANAS [id number] VITAL SIGNS PER UNIT ROUTINE [#[id number]] Priority: STAT Class: H ospital Performed Comment:More frequently if Indicated. Released on: 10/29/2019 2:54 PM [id number] 4 BEDREST, COMPLETE [#[id number]] Priority: STAT Class: Hospital Performed Relea sed on: 10/29/2019 2:54 PM [id number] NOTIFY PROVIDER: VITAL SIGNS CHANGES [#[id number]] Priority: STAT Class: Hospital Performed Temp -> [...] carmen rs Released on: 10/29/2019 2:54 PM [id number] APPLY/MAINTAIN SEQUENTIAL COMPRESSIO* [#[id number]] P riority: STAT Class: Hospital Performed Released on: 10/29/2019 2:54 PM SODIUM CHLORIDE 0.9 % IJ SYRG [#[id number]] Priority: STAT Class: Normal SODIUM CHLORIDE 0.9 % IJ SYRG [#[id number]] Priority: STAT Class: Normal ACETAMINOPHEN 325 MG TABLET [# [id number]] Priority: STAT Class: Normal ENOXAPARIN 40 MG/0.4 ML SUB-Q SYRINGE [#[id number]] Priority: STAT Class: Normal SODIUM CHLORIDE 0.9 % IV [#[id number]] Priority: STAT Class: Normal [id number] GLUCOSE, POC [#[id number]] Priority: Routine Class : ER Collect Resulting Agency: [facility] Test ID: BGG Standing Order Informati on Remaining Occurrences:0/1 Released orders: SunOctober 29, 2019 11:26 AM by: Automatic B [facility] Process [id number] GLUCOSE, POC [#[id number]] Priority: Routine Class : ER Collect Specimen Source: Whole Blood Specimen Collected: 10/29/2019 11:26 AM Resulting Agency: [facility] Test ID: BGG Released on: 10/29/2019 11:26 AM [id number] IP CONSULT TO PRIMARY CARE PROVIDER [#[id number]] Priority: STAT Class: Hospital Performed Standing Order Inf ormation Remaining Occurrences:0/1 Interval:ONE TIME Last released:10/29/2019 Relea sed orders: SunOctober 29, 2019 12:59 PM by: CRISTOBAL ERNANDEZ Reason for Consult: -> admit Did you call or speak to the consulting provider? -> No Consult To -> dr canas [id number] IP CONSULT TO PRIMAR CARE PROVIDER [#[id number]] Priority: STAT Class: Hospital Performed Reason for Consult: -> ad rei Did you call or speak to the consulting provider? -> No Consult To -> dr canas Released on: 12:59 PM CON53 IP CONSULT TO PSYCHIATRY [#[id number]] Priority: STAT Class: H ospital Performed Standing [...] -> TODAY CON53 IP CONSULT TO PSYCHIATRY [#[id number]] Priority: STAT Class: Hospital Performed Reason for Consult: -> 49 yo male with severe bipolar diseas e, admitted with slurred speech, severe weakness Did you call or speak to t he consulting provider? -> No Consult To -> Dr Aguirre Schedule When? -> TODAY Released on: 10/29/2019 2:54 PM [id number] INITIAL PHYSICIAN ORDER: INPATIENT [#[id number]] Priority: Routine Class : ADT Pend Transfer Standing Order Information Remaining Occurrences:0/1 Interval:ONE TI [...] CANAS Estimated Length of Stay -> 3-4 [facility] Discharge Plan: -> Home with Office Follow-up [id number] INITIAL PHYSICIAN ORDER: INPATIENT [# [id number]] Priority: Routine Class: ADT Pend Transfer Status: [...] Foll ow-up Released on: 10/29/2019 2:43 PM [id number] INITIAL PHYSICIAN ORDER: INPATIENT [#[id number]] Priority: Routine Class: ADT Pend Transfer Standing Order Information Remaining Occurrences:0 Interval:ONE TIME Last released:10/29/2019 Released orders: SunOctober 29, 2019 2:54 PM by: RITIKA CANAS Status: -> INPATIENT Inpatient Hospitalization Certified [facility] for the Following Reasons -> 3- . [...] 3-4 Midnights Discharge Plan: -> Other (Specify) [id number] INITIAL PHYSIC JOSE ORDER: INPATIENT [#[id number]] Priority: Routine Class: ADT Pend Transfer Status: [...] 2:54 PM IVT3 INSERT PERIPHERAL IV [# [id number]] Priority: STAT Class: Hospital Performed Standing Order Information Remaining Occurre nces:0/1 Interval:ONE TIME Last released:10/29/2019 Released orders: SunOctober 28, 2:54 PM by: RITIKA CANAS IVT3 INSERT PERIPHERAL IV [#[id number]] Priority: ST AT Class: Hospital Performed Released on: 10/29/2019 2:54 PM CON75 IP CONSULT TO PHYSICAL THERAPY [#[id number]] Priority: STAT Class: Hospital Performed Standing Order Information Remainin g Occurrences:14/15 Interval:DAILY Last released:10/29/2019 Released orders : SunOctober 29, 2019 2:54 PM by: RITIKA CANAS CON75 IP CONSULT TO PHYSICAL THERAPY [#[id number]] Priority: STAT Class: Hospital Performed Released on: 10/29/2019 2:54 PM COD2 FULL CODE [#[id number]] Priority: STAT Class: Hospital Performed Standing Order Inf ormation Remaining Occurrences:0/1 Interval:CONTINUOUS Last released:10/29/2019 Rel eased orders: SunOctober 29, 2019 2:54 PM by: RITIKA CANAS COD2 FULL CODE [#[id number]] Priority: STAT Class: Hospital Performed Released on: 10/29/2019 2:54 PM DIET10 4 DIET FULL LIQUID [#[id number]] Priority: STAT Class: Hospital Performed Stand ing Order Information Remaining Occurrences:0/1 Interval:DIET EFFECTIVE NOW Last released:10/29/2019 Released orders: SunOctober 29, 2019 2:54 PM by: RITIKA CANAS Comment:A dvance as tolerated to regular diet [id number] DIET FULL LIQUID [#[id number]] Priority: STAT Class: Hospital Performed Comment:Advance as tolerated to regular diet Released on: 10/29/2019 2:54 Maxwell Corona MR#: [id number] * Rm: 416-02Ht: 5' 7" Wt: 3 00 lb Code: Full Code Iso:Diagnosis:Bipolar disorder with severe depression (HCC) [F31.4]Allergies : No Known Allergies -------- Current as of: 10/29/19 1556 ---aspirin (ASPIRIN) tablet 325 mg #[id number] Admin Amount: 1 Tab (1 x 325 mg Tab) Ordered Dose: 325 mg Route: Oral Freq: ONCE Start Date: 12/24/13 No administration times (back 96 hours, ahead 96 hours). ------diphenhydrAMINE (BENADRYL) capsule 50 mg #[id number] Admin Amount: 1 Cap (1 x 50 mg Cap) Ordered Dose: 50 mg Ro [place]: Oral Freq: NOW Start Date: 12/24/13 No administration times (back 96 hours, ahe ad 96 hours). ------diazepam (VALIUM) tablet 5 mg #[id number] Admin Amount: 1 Tab (1 x 5 mg Tab) Ordered Dose: 5 mg Route: Ora l Freq: ONCE Start Date: 12/24/13 No administration times (back 96 hours, e ad 96 hours). ------lidocaine (XYLOCAINE) 10 mg/mL (1 %) injection 1-30 mL #[id number] Admin Amount: 1-30 mL Ordered Dose: 1-30 mL Route: IntraDERMal Freq: ONC E Start Date: 12/24/13 No administration times (back 96 hours, ahead 96 hours). ------heparin (PF) 2 units/ml in NS infusion 2,000 Units #[id number] Admin Amount: 1,000 mL = 2,000 Units of 2 Units/mL Ordered Dose: 1,000 mL Route: Irrigation Freq: ONCE Start Date: 12/24/13 No administration times (b ack 96 hours, ahead 96 hours). ------heparinized saline 2 units/mL infusion 1,000 Units #[id number] Admin Amount: 500 mL = 1,000 Units of 2 Units/mL Ordered Dose: 500 mL R oute: IntraarTERial Freq: ONCE Start Date: 12/24/13 No administration times (back 96 hours, ahead 96 hours). ------0.9% sodium chloride infusion #[id number] Ordered Dose: 75 mL/hr Route: IntraVENous Freq: CONTINUOUS Start Date: 12/24/13 Rate: 75 mL/hr Duration: No administration times (back 96 hours, ahead 96 hours). ------ioversol (OPTIRAY) 320 mg iodine/mL contrast injection 1-100 mL #[id number] Admin Amount: 1-100 mL Ordered Dose: 1-100 mL Route: IntraVENous Freq: RAD ONCE Start Date: 12/24/13 No administration times (back 96 hours, ahead 96 hours).Maxwell Bray MR#: [id number] * Rm: 416-02Ht: 5' 7" Wt: 300 lb Code: Full Code Iso:Diagnosis:Bipolar disorder with severe depression ([facility]) [F31.4]Allergies: No Kn own Allergies -------- Current as of: 10/29/19 1556 ---gadobutrol (GADAVIST) contrast solution 1-10 mL #[id number] Admin Amount: 1-10 mL Ordered Dose: 1-10 mL Route: IntraVENo us Freq: RAD ONCE Start Date: 01/13/14 No administration times (back 96 hours, ahe ad 96 hours). ------sodium chloride (NS) flush 5-10 mL #[id number] Admin Amount: 5-10 mL Ordered Dose: 5-10 mL Route: IntraVENous Freq: RA D ONCE Start Date: 01/13/14 No administration times (back 96 hours, ahead 96 hours). ------sodium chloride (NS) 0.9 % flush #[id number] Ordered Dose: Route: Freq: Start D ate: 01/13/14 No administration times (back 96 hours, ahead 96 hours). ------morphine injection 2 mg #[id number] Admin Amount: 1 mL = 2 mg of 2 mg/mL Ordered Dose: 2 mg Route: Int raVENous Freq: NOW Start Date: 03/13/15 No administration times (back 96 hours, ahe ad 96 hours). ------influenza vaccine (4 yr+)(PF) (FLUCELVAX QUAD) inj ection 0.5*#[id number] Admin Amount: 0.5 mL Ordered Dose: 0.5 mL Route: IntraMUSCular Freq : PRIOR TO DISCHARGE Start Date: 03/30/16 No administration times (back 96 hours, ahead 96 hours). ------oxyCODONE-acetaminophe n (PERCOCET) 5-325 mg per tablet 1 Tab #[id number] Admin Amount: 1 Tab Ordered Dose: 1 Tab Route: Oral Freq: NOW Start Date: 09/07/17 No administration times (back 96 hours, ahead 96 hours). ------barium sulfate (READICAT) 2.1 % (w/v), 2.0 % (w /w) oral suspension 9*#[id number] Admin Amount: 900 mL Ordered Dose: 900 mL Route: Ora l Freq: RAD ONCE Start Date: 10/15/17 No administration times (back 96 hours, ahe ad 96 hours). ------iopamidol (ISOVUE 300) 61 % contrast injection 100 mL #[id number] Admin Amount: 100 mL Ordered Dose: 100 mL Route: IntraVENous Freq: RAD O NCE Start Date: 10/15/17 No administration times (back 96 hours, ahead 96 hours).Maxwell Bray MR#: [id number] * Rm: 416-02Ht: 5' 7" Wt: 300 lb Cod e: Full Code Iso:Diagnosis:Bipolar disorder with severe depression ([facility]) [F31.4]Allergies: No Kn own Allergies -------- Current as of: 10/29/19 1556 ---risperiDONE (RisperDAL m-tabs) disintegrating tablet 1 mg #[id number] Admin Amount: 1 Tab (1 x 1 mg Tab) Ordered Dose: 1 mg Ro [place]: Oral Freq: ONCE Start Date: 12/24/17 No administration times (back 96 hours, ahe ad 96 hours). ------ALPRAZolam (XANAX) tablet 2 mg #[id number] Admin Amount: 4 Tab (4 x 0.5 mg Tab) Ordered Dose: 2 mg Route: Ora l Freq: NOW Start Date: 12/24/17 No administration times (back 96 hours, e ad 96 hours). ------lamoTRIgine (LaMICtal) tablet 100 mg #[id number] Admin Amount: 1 Tab (1 x 100 mg Tab) Ordered Dose: 100 mg Route: Ora l Freq: ONCE Start Date: 12/24/17 No administration times (back 96 hours, e ad 96 hours). ------OLANZapine (ZyPREXA zydis) disintegrating tablet 5 mg #[id number] Admin Amount: 1 Tab (1 x 5 mg Tab) Ordered Dose: 5 mg Route: Ora l Freq: ONCE Start Date: 12/25/17 No administration times (back 96 hours, e ad 96 hours). ------LORazepam (ATIVAN) tablet 2 mg #[id number] Admin Amount: 4 Tab (4 x 0.5 mg Tab) Ordered Dose: 2 mg Route: Ora l Freq: NOW Start Date: 12/25/17 No administration times (back 96 hours, ahe ad 96 hours). ------LORazepam (ATIVAN) injection 1 mg #[id number] Admin Amount: 0.5 mL = 1 mg of 2 mg/mL Ordered Dose: 1 mg Ro [place]: IntraVENous Freq: NOW Start Date: 12/25/17 No administration times (back 96 hours, ahead 96 hours). ------barium sulfate (EZ PAQUE) 96 % (w/w) contrast suspension 17 6 g #[id number] Admin Amount: 176 g Ordered Dose: 176 g Route: Oral Freq: RAD ONCE Start Date: 08/02/18 No administration times (back 96 hours, ahead 96 hours). ------barium sulfate (EZ PAQUE) 96 % (w/w) contrast suspension 17 6 g #[id number] Admin Amount: 176 g Ordered Dose: 176 g Route: Oral Freq: RAD ONCE Start Date: 08/02/18 No administration times (back 96 hours, ahead 96 hours).Maxwell Bray MR#: [id number] * Rm: 416-02Ht: 5' 7" Wt: 300 lb Code: Full Co de Iso:Diagnosis:Bipolar disorder with severe depression ([facility]) [F31.4]Allergies: No Known Allergies -------- Current as of: 10/29/19 1556 ---aspirin chewable tablet 162 mg #[id number] Admin Amount: 2 Tab (2 x 81 mg Tab) Ordered Dose: 162 mg Route: Ora l Freq: NOW Start Date: 08/10/19 No administration times (back 96 hours, ahe ad 96 hours). ------0.9% sodium chloride infusion 1,000 mL #[id number] Admin Amount: 1,000 mL Ordered Dose: 1,000 mL Route: IntraVENous Freq: O NCE Start Date: 08/16/19 Rate: 1,000 mL/hr Duration: No administratio n times (back 96 hours, ahead 96 hours). ------methylPREDNISolone (PF) (Solu-MEDROL) injection 125 mg #[id number] Admin Amount: 2 mL = 125 mg of 125 mg/2 mL Ordered Dose: 125 mg Ro [place]: IntraVENous Freq: NOW Start Date: 08/16/19 No administration times (back 9 6 hours, ahead 96 hours). ------aspirin chewable tablet 162 mg #[id number] Admin Amount: 2 Tab (2 x 81 mg Tab) Ordered Dose: 162 mg Route: Ora l Freq: NOW Start Date: 08/16/19 No administration times (back 96 hours, ahe ad 96 hours). ------sodium chloride (NS) flush 5-40 mL #[id number] Admin Amount: 5-40 mL Ordered Dose: 5-40 mL Route: IntraVENous Freq: EV AN 8 HOURS Start Date: 10/29/19 Administration times (back 96 hours, ahead 96 hours): : 1400 2200 10/30/19: 0600 1400 219910/31/19: 599 1400 219911/01/19: 599 1400 219911/02/19: 599 1400 ---sodium chloride (NS) flush 5-40 mL #[id number] Admin Amount: 5-40 mL Ordered Dose: 5-40 mL Route: IntraVENous Freq: NEEDED Start Date: 10/29/19 No administration times (back 96 hours, ahead 96 hours). ------acetaminophen (TYLENOL) tablet 650 mg #[id number] Admin Amount: 2 Tab (2 x 325 mg Tab) Ordered Dose: 650 mg Ro [place]: Oral Freq: EVERY 4 HOURS NEEDED Start Date: 10/29/19 No administration times (back 96 hours, ahe ad 96 hours).Maxwell Bray MR#: [id number] * Rm: 416-02Ht: 5' 7" Wt: 3 00 lb Code: Full Code Iso:Diagnosis:Bipolar disorder with severe depression ([facility]) [F31.4]Allergies : No Known Allergies -------- Current as of: 10/29/19 1556 ---enoxaparin (LOVENOX) injection 40 mg #[id number] Admin Amount: 0.4 mL = 40 mg of 40 mg/0.4 mL Ordered Dose: 40 mg Route: SubCUTAneous Freq: EVERY 24 HOURS Start Date: 10/29/19 Administration times (back 96 hours, ahead 96 hours): 10/29/19: 1455 10/30/19: 1455 10/31/19: 14511/01/19: 14511/02/19 : 145 ---0.9% sodium chloride infusion #[id number] Ordered Dose: 100 mL/hr Route: IntraVENous Freq: CONTINUOUS Start Date: 10/29/19 Rate: 100 mL/hr Duration: Administration times (back 96 hours, ahead 96 hours): 10/29/19: 1454 ED Current OP MedicationsVraylar 3 mg ca [...] Supporting Document(s ) ID Date Data Source [id number] 10/29/2019 03:54:13 PM EDT [facility] History & PhysicalBrian Anam Bray [...] morbidity or mortality cardiac cath at [facility] approx 6-8 months ag o Other [...] week Gets together: Once a week Attends taoist service: More than 4 times per year [...] two (2) times daily asneeded. Other, Phys, MDYessy Known AllergiesRevie w of Systems: Unreliable due [...] trast. Sagittal and coronal reconstruction was performed.Utilizing occupational health and safety adviser alg orithm the examination was performed to [...] QTC Calculation (Bezet) 446 ms Calculated P [place] 53 degrees Calculat ed R [place] 68 degrees Calculated T [place] 0 degrees Diagnosis Sinus tachycardiaProl onged NE intervalNonspecific intraventricular conduction delayCBC WITH AUTOMATED DIFF [...] lydia: 10/29/19 10:45 AMResult Value Ref Range Gustavus level <0.20 (L) 0.6 - 1.2 MMOL/L GLUCOSE, POC Collection Time: 10/29/19 11:26 AMResult Value Ref Range Glucose, bedsid e 102 65 - 110 MG/DLAll lab results for the last 24 hours reviewed.Assessment/PlanAc tive Problems: Bipolar disorder with severe depression (HCC) (10/29/2019) possible [place] dvertentoverdoseGeorge MD Corey Name Value Range Interpretation Code Description Data Melani rce(s) Supporting Document(s ) ID Date Data Source [id number] 10/29/2019 03:42:10 PM EDT [facility] TRANSFER - OUT REPORT:Verbal report give n [...] Supporting Document(s ) ID Date Data Source [id number] 10/29/2019 02:28:59 PM EDT [facility] The history is provided by the spouse.10 [...] or mortal ity cardiac cath at [facility] approx 6-8 months ago Other unknown [...] week Gets together: Once a week Attends taoist service: More than 4 times per year [...] QTC Calculation (Bezet) 446 ms Calculated P [place] 53 degr ees Calculated R [place] 68 degrees Calculated T [place] 0 degrees Diagnosis Sinus tachycar diaProlonged NE intervalNonspecific intraventricular conduction delayCBC WIT H AUTOMATED [...] lydia: 10/29/19 10:45 AMResult Value Ref Range Gustavus level <0.20 (L) 0.6 - 1.2 MMOL/L GLUCOSE, POC Collection Time: 10/29/19 11:26 AMResult Value Ref Range Glucose, bedsid e 102 65 - 110 MG/DLEKG: Sinus tachycardia at a rate of [address] or T wave fuentes es.Interpreted by Cristobal Ernandez, YAAHIRAadiology:CXR RESULTS:CXR Results (La st 48 hours) 10/29/19 [...] Sagittal and coronalreconstru ction was performed. Utilizing occupational health and safety adviser algorithm the examinationwas performed t o optimize [...] Supporting Document(s ) ID Date Data Source [id number] 10/29/2019 12:17:28 PM EDT [facility] XR CHEST PORTCLINICAL INDICATION PROVIDE [...] Supporting Document(s ) ID Date Data Source [id number] 10/29/2019 11:55:57 AM EDT [facility] CT HEAD WO CONTClinical data: amsPriors: 03/13/2015.Technique: Multiple axial images were obtained from the skullbase to the vertexwithout administration of intravenous contrast. Sagittal and coronalreconstru ction was performed. Utilizing occupational health and safety adviser algorithm the examinationwas performed t o optimize [...] Supporting Document(s ) ID Date Data Source [id number] 10/29/2019 11:48:34 AM EDT [facility] Name Value Range Interpretation Description Data Sup porting Code Source(s) Document(s ) Glucose 102 MG/DL 65-110 [facility] [Mass/volume] [facility] in Blood by Hospital Automated test strip ID Date Data Source [id number] 10/29/2019 10:49:56 AM EDT [facility] Patient lethargic, BIBA from home for le thargy and slurred speech. Name Value Range Interpretation Code Description Data Melani rce(s) Supporting Document(s ) ID Date Data Source [id number] 10/29/2019 11:29:33 AM EDT [facility] Name Value Range Interpretation Code Description Data Supporting Source(s) Document(s ) Gustavus 0.6-1.2 Below low normal [facility] [Moles/volum [facility] e] in Serum Hospital or Plasma ID Date Data Source [id number] 10/29/2019 11:28:52 AM EDT [facility] Name Value Range Interpretation Description Data Sup porting Code Source(s) Document(s ) Sodium 136 136-145 [facility] [Moles/volume] mmol/L [facility] in Serum or Hospital Plasma Potassium 4.4 3.5-5.1 [facility] [Moles/volume] mmol/L [facility] in Serum or Hospital Plasma Chloride 106 98-107 [facility] [Moles/volume] mmol/L [facility] in Serum or Hospital Plasma Carbon 22 21-32 [facility] dioxide, total mmol/L [facility] [Moles/volume] Hospital in Serum or Plasma Anion gap in 12 10-20 [facility] Serum or mmol/L [facility] Plasma Hospital Glucose 108 74-106 Above high normal [facility] [Mass/volume] mg/dL [facility] in Serum or Hospital Plasma Urea nitrogen 16 mg/dL 7-18 [facility] [Mass/volume] [facility] in Serum or Hospital Plasma Creatinine 1.05 0.70-1.3 [facility] [Mass/volume] mg/dL 0 [facility] in Serum or Hospital Plasma Glomerular >60 [facility] - [facility] filtration [facility] rate/1.73 sq M Hospital predicted among blacks [Volume Rate/Area] in Serum or Plasma by Creatinine-bas ed formula (MDRD) Glomerular >60 [facility] - [facility] filtration [facility] rate/1.73 sq M Hospital predicted among non-blacks [Volume Rate/Area] in Serum or Plasma by Creatinine-bas ed formula (MDRD) (NOTE)Estimated GFR is calculated using the Modification of Diet in RenalDisease (MDRD) Study equation, reported for both Americans(GFRAA) and non- Americans (GFRNA), and normalized to 1.7 3z1qucc surface area. The physician must decide which [...] 8.5-10.1 [facility] Serum or Plasma [facility] Hosp ital Bilirubin.total 0.7 mg/dL 0.2-1.0 [facility] - [facility] [Mass/volume] in Serum or [facility] Plasma Alanine aminotransferase 30 U/L 13-61 [facility] [Enzymatic activity/volume] [facility] in Serum or Plasma Aspartate aminotransferase 27 U/L 15-37 [facility] - Good [Enzymatic activity/volume] [facility] in Serum or Plasma by With P-5'-P Alkaline phosphatase 139 U/L 45-117 Above high [facility] - [facility] [Enzymatic activity/volume] normal [facility] in Serum or Plasma Protein [Mass/volume] in 7.6 g/dL 6.4-8.2 [facility] - Good Serum or Plasma [facility] ital Albumin [Mass/volume] in 3.9 g/dL 3.5-4.7 [facility] - Good Serum or Plasma by [facility] ospital Bromocresol purple (BCP) dye binding method Globulin [Mass/volume] in 3.7 g/dL 1.7-4.7 [facility] - Good Serum by calculation [facility] Albumin/Globulin [Mass 1.0 0.7-2.8 [facility] - Good Ratio] in Serum or Plasma [facility] ID Date Data Source [id number] 10/29/2019 11:20:29 AM [facility] Name Value Range Interpretation Description Data Sup porting Code Source(s) Document(s ) aPTT in 22.2 SEC 21.0-28. [facility] Platelet poor 0 [facility] plasma by [facility] Coagulation assay Therapeutic Range = 42.0-60.0 secs ID Date Data Source [id number] 10/29/2019 11:20:29 AM EDT [facility] Name Value Range Interpretation Description Data Sup porting Code Source(s) Document(s ) Prothrombin 10.3 sec 9.4-11.1 [facility] - Good time (PT) [facility] INR in 1.0 0.8-1.2 [facility] - Good Platelet poor [facility] plasma by Hospital Coagulation assay ID Date Data Source [id number] 10/29/2019 11:11:49 AM EDT [facility] Name Value Range Interpretation Description Data Sup porting Code Source(s) Document(s ) Leukocytes 8.1 K/uL 4.8-10.6 [facility] - [#/volume] in Good Blood by [facility] Automated count Hospital Erythrocytes 5.52 4.70-6.0 [facility] - [#/volume] in M/uL 0 Good Blood by [facility] Automated count [facility] Hemoglobin 16.7 14.0-18. [facility] - [Mass/volume] in g/dL 0 [facility] Blood [facility] Hematocrit 51.8 % 42.0-52. [facility] - [Volume 0 Good Fraction] of [facility] Blood by Hospital Automated count Erythrocyte mean 93.8 FL 81.0-94. [facility] - corpuscular 0 Good volume [Entitic [facility] volume] by Hospital Automated count Erythrocyte mean 30.3 PG 27.0-35. [facility] - corpuscular 0 Good hemoglobin [facility] [Entitic mass] Hospital by Automated count Erythrocyte mean 32.2 30.7-37. [facility] - corpuscular g/dL 3 Good hemoglobin [facility] Hospital [Mass/volume] by Automated count Erythrocyte 13.2 % 11.5-14. [facility] - distribution 0 Good width [Ratio] by [facility] Automated count [facility] Platelets 193 K/uL 130-400 [facility] - [#/volume] in Good Blood by [facility] Platelet mean 8.6 FL 9.2-11.8 Below low normal [facility] - volume [Entitic Good volume] in Blood [facility] by Automated Hospital count Nucleated 0.0 PER 0 [facility] - erythrocytes/100 100 WBC Good leukocytes [facility] [Ratio] in Blood Hospital Nucleated 0.00 0.0-0.01 [facility] - erythrocytes K/uL Good [#/volume] in [facility] Blood [facility] Segmented 79 % 48.0-72. Above high normal [facility] - neutrophils/100 0 Good leukocytes in [facility] Lymphocytes/100 10 % 18.0-40. Below low normal [facility] - leukocytes in [address] [facility] Monocytes/100 8 % 2.0-12.0 [facility] - leukocytes in Good Blood [facility] Eosinophils/100 1 % 0.0-7.0 [facility] - leukocytes in Good Blood [facility] Basophils/100 0 % 0.0-3.0 [facility] - leukocytes in [facility] Immature 1 % 0-0.5 Above high normal [facility] - granulocytes/100 Good leukocytes in [facility] Automated count Segmented 6.4 K/UL 2.3-7.6 [facility] - neutrophils Good [#/volume] in [facility] Lymphocytes 0.8 K/UL 0.9-4.2 Below low normal [facility] - [#/volume] in [facility] Monocytes 0.7 K/UL 0.1-1.7 [facility] - [#/volume] in [facility] Eosinophils 0.1 K/UL 0.0-1.0 [facility] - [#/volume] in [facility] Basophils 0.0 K/UL 0.0-0.4 [facility] - [#/volume] in [facility] Immature 0.1 K/UL 0.0-0.17 [facility] - granulocytes Good [#/volume] in [facility] Automated count Differential [facility] - cell count [facility] method [facility] ID Date Data Source [id number] 09/15/2019 09:44:01 AM EDT [facility] Clinical Indications/Reason For Exam: pa in.AP, open-mouth [...] Supporting Document(s ) ID Date Data Source [id number] 09/15/2019 09:41:40 AM EDT [facility] THORACIC SPINE 4 views.History: Pain.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 Signing date/time: 09/15/2019 9:41 AMSigned by: CURTIS VARMA Name Value Range Interpretation Code Description Data [facility] Supporting Document(s ) ID Date Data Source [id number] 09/15/2019 09:40:53 AM EDT [facility] Clinical indications with reason for exa m: [...] Value Range Interpretation Code Description Data [facility](s) Supporting Document(s ) ID Date Data Source [id number] 08/17/2019 08:25:20 AM [facility] History: [...] Value Range Interpretation Code Description Data 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 [...] Calculation (Bezet) 429 ms Ca lculated P [place] 36 degrees Calculated R [place] 77 degrees Calculated T [place] -24 degrees Diagnosis Sinus tachycardiaBorderline T abnormalities, [...] Time: 08/16/19 9:00 PMResult Value Ref Range Gustavus level 0.21 (L) 0.6 - 1.2 MMOL/LEKG: sinus tach ycardia, rate 109Radiology:CXR: no acute findings<EMERGENCY DEPARTMENT CASE [facility]>Impression/Differential Diagnosis: Allergic reaction allergic, drug reactio n,ACS, pulmonary embolismED Course: Patient presents short of breath and mildly tach ycardic complainingof new onset rash to face anterior chest and posterior chest.Plan: Labs, chest x-ray, EKG, troponin, d-dimer, prednisone, Pepcid, tgwespnfwnq36:04 PM patient verbalizes relief of symptoms rash has faded. He denies chestpain he denie s shortness of breath.Patient was advised that we cannot rule out allergic drug re action as he isrecently just restarted taking his lithium. Patient advised to discuss takinglithium with his psychiatrist as soon as possible.[facility] by me. Feels better at present, wants to go home.Patient was told to follow up with the primary doctor in 1-2 days and return tot ED for any worsening severe pain, vomiting, [...] time of disposition: stableI have reviewed the [facility] medications:Prior to Admission medicationsMedication Sig Start Date End Date Taking? Authorizing ProviderbuPROPion XL (WELLBUTRIN XL) 300 mg XL tablet Take 300 mg by mouth everymorning. Yes Other, MD Paullithium carbonate 150 mg capsule Take 300 mg by mouth three (3) times daily.Yes Other, Rosenda MillerredniSONE (DEL TASONE) 50 mg tablet [...] Take 2 mg by mouth daily. Othe r, MD Paulfluoxetine HCl (PROZAC PO) Take 60 [...] 36N*ENCOUNTER 08/16/2019 10:46:05 PM EST [facility] [id number] [facility] [address] [facility] [address] [phone]/ Maxwell Bray (Male) [id number] ES I 3 ED Dispo:DISCHARGE Chief Complaint: Allergic Reaction Diagnosis: Allergic reaction, initial encounter [] Allergic reaction to drug, in itial encounter [] Current Providers: Attending: Javier Quezada Nurse Practitioner: Javier Ward Primary Nurse: HARINDER AcuñaN: [id number] Print Group [phone] - [facility] MrnMRN: [id number] Print [employer] [id number] - [facility] Age Sex 1970 AGE 49 SEX Male Primary Care Provider: Ritika Canas MD Eibtozjkg: (No Known Allergies)Date Reviewed: 08/16/2019Reviewed by: Zahraa Prince RN - Review CompleteED Provider Notes: No not es of this type exist for this encounter.ED Orders BUPROPION XL 300 MG 24 HR TAB [#[id number]] Priority: Routine Class: Historical Med LITHIUM CARBONATE 150 MG CAP [#[id number]] Priority: Routine Class: Historical Med FAMOTIDINE 20MG + NS 10 ML IV [#[id number]] Priority: STAT Class: Normal H2RA INDICATION -> Adverse reaction/Anaphylaxis SODIUM CH LORIDE 0.9 % IV [#[id number]] Priority: STAT Class: Normal METHYLPREDNISOLONE (PF) 125 MG/2 ML * [#[id number]] Priority: STAT Class: Normal ASPIRIN 81 MG CHEWABLE TAB [# [id number]] Priority: STAT Class: Normal PREDNISONE 50 MG TAB [#[id number]] Bridgette ority: Routine Class: Normal [id number] 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 [#[id number]] Priority: STAT C lass: Hospital Performed Standing Order Information Remaining Occurrences:0/1 Interval:Contin uous Last released:08/16/2019 Released orders: Sat Aug 16, 2019 9:02 PM by: Javier POLLOCK Type: -> Bedside [id number] OBTAIN OLD EKG [#[id number]] Priority: Routi ne Class: Hospital Performed Standing Order Information Remaining Occurrences:0/1 Inter haile:ONE TIME Last released:08/16/2019 Released orders: Sat Aug 16, 2019 9:02 PM by: INDIO WARD [id number] PULSE OXIMETRY CONTINUOUS [#[id number]] Priority: STAT Class: H ospital Performed Standing Order Information Remaining Occurrences:0/1 Interval:CONTIN UOUS Last released:08/16/2019 Released orders: Sat Aug 16, 2019 9:02 PM by: Javier POLLOCK [id number] 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 [#[id number]] Priority: STAT Class: Hospital Perfo rmed Type: -> Bedside Released on: 08/16/2019 9:02 PM [id number] OBTAIN OLD EKG [#[id number]] Priority: STAT Class: Hospital Performed Released on: 08/16/2019 9:02 PM [id number] PULSE OXIMETRY CONTINUOUS [#[id number]] Priority: STAT Class: Hospital Performed Relea sed on: 08/16/2019 9:02 PM [id number] DIET NPO [#[id number]] Priority: STAT Cla ss: Hospital Performed Standing Order Information Remaining Occurrences:0/1 Interval:DIET E FFECTIVE NOW Last released:08/16/2019 Released orders: Sat Aug 16, 2019 9:02 PM by: INDIO WARD NPO options: -> With Meds [id number] DIET NPO [#[id number]] Priority: STAT Class: Hospital Performed NPO options: -> With Meds Released on: 08/16/2019 9:02 PM [id number] SALINE LOCK IV [#[id number]] Priority: STAT Class: Hospital Performe d Standing Order Information Remaining Occurrences:0/1 Interval:ONE TIME Last released: 08/16/2019 Released orders: Sat Aug 16, 2019 9:02 PM by: INDIO POLLOCK [id number] SALIN E LOCK IV [#[id number]] Priority: STAT Class: Hospital Performed Released on : 08/16/2019 9:02 PM [id number] METABOLIC PANEL, COMPREHENSIVE [#[id number]] Priority: STAT Class: E R Collect Standing Order Information Remaining Occurrences:0/1 Interval:ONE TIME Last r eleased:08/16/2019 Released orders: Sat Aug 16, 2019 9:02 PM by: INDIO POLLOCK [id number] CBC WITH AUTOMATED DIFF [#[id number]] Priority: STAT Class: ER Collect Standing Order Info rmation Remaining Occurrences:0/1 Interval:ONE TIME Last released:08/16/2019 Released orders: [facility] Aug 16, 2019 9:02 PM by: INDIO POLLOCK [id number] TROPONIN I [#[id number]] Priority: STAT Class: ER Collect Standing Order Information Remaining Occurre nces:0/1 Interval:ONE TIME Last released:08/16/2019 Released orders: [facility] Aug 16 9:02 PM by: INDIO POLLOCK [id number] MAGNESIUM [#[id number]] Priorit y: STAT Class: ER Collect Standing Order Information Remaining Occurrences:0/1 Inter haile:ONE TIME Last released:08/16/2019 Released orders: [facility] Aug 16, 2019 9:02 PM by: INDOI WARD [id number] D DIMER [#[id number]] Priority: STAT Class: E R Collect Standing Order Information Remaining Occurrences:0/1 Interval:ONE TIME Last r eleased:08/16/2019 Released orders: [facility] Aug 16, 2019 9:02 PM by: INDIO POLLOCK [id number] METABOLIC PANEL, COMPREHENSIVE [#[id number]] Priority: STAT Class: ER Collect Specimen Source: Plas ma Specimen Collected: 08/16/2019 9:00 PM Resulting Agency: [facility] Test ID: MPL Released on: 08/16/2019 9:02 PM [id number] CBC WITH AUTOMATED DIFF [#[id number]] Prior ity: STAT Class: ER Collect Specimen Source: Whole Blood Specimen Collected: 08/16/2019 9:00 PM Lindain cristi Agency: [facility] Test ID: [id number] Released on: 08/16/2019 9:02 PM [id number] TROPONIN I [#[id number]] Priority: STAT Class: ER Collect Specimen Source : Plasma Specimen Collected: 08/16/2019 9:00 PM Resulting Agency: [facility] Test ID: TROIP Released on: 08/16/2019 9:02 PM [id number] MAGNESIUM [#[id number]] Priority: STAT Class: ER Collect Specimen Source: Plasma Specimen Collected: 08/16/2019 9:00 PM Resultin g Agency: [facility] Test ID: MGPL Released on: 08/16/2019 9:02 PM [id number] D DIMER [#[id number]] Priority: STAT Class: ER Collect Specimen Source : Plasma Specimen Collected: 08/16/2019 9:00 PM Resulting Agency: [facility] Test ID: [id number] Released on: 08/16/2019 9:02 PM [id number] LITHIUM [#[id number]] Priority: STAT Class: ER Collect Standing Order Information Remaining Occurrences:0/1 Inter haile:ONE TIME Last released:08/16/2019 Released orders: Sat Aug 16, 2019 9:02 PM by: INDIO WARD [id number] LITHIUM [#[id number]] Priority: STAT Class: E R Collect Specimen Source: Serum Specimen Collected: 08/16/2019 9:00 PM Resulting Agency: [facility] Test ID: LI Released on: 08/16/2019 9:02 PM [id number] EKG, 12 LEAD, INITIAL [#[id number]] Priority: STAT Class: Hospital Performed Standing Order Information Remainin g Occurrences:0/1 Interval:ONE TIME Last released:08/16/2019 Released orders : Sat Aug 16, 2019 9:02 PM by: INDIO POLLOCK Reason for Exam: -> Chest Pain [id number] EKG, 12 LEAD, INITIAL [#[id number]] Priority: STAT Class: Hospital Performed Resulting Age ncy: GSH MUSE Test ID: [id number] Reason for Exam: -> Chest Pain Released on: 08/16/2019 9:02 PM [id number] XR CHEST PORT [#[id number]] Priority: STAT Class: Hospital Performed Stand ing Order Information Remaining Occurrences:0/1 Interval:ONE TIME Last released:0 08/16/2019 Released orders: Sat Aug 16, 2019 9:02 PM by: INDIO POLLOCK Reason for Exam -> Chest Pain [id number] XR CHEST PORT [#[id number]] Priority: STAT Class: H ospital Performed Resulting Agency: [facility] Test ID: [id number] Reason for Exam -> Chest Pain Rele ased on: 08/16/2019 9:02 Maxwell Corona MR#: [id number] * Rm: [id number] Ht: 5' 10" Wt: 280 lb Code: Prior Iso:Diagnosis:Allergies: No Known Allergies -------- Current as of: 08/16/192245 GI=Given IC=IV Complet ed NB=New Bag --aspirin (ASPIRIN) tablet 325 mg #[id number] Admin Amount: 1 Tab (1 x 325 mg Tab) Ordered Dose: 325 mg Route: Oral Freq: ONCE Start Date: 12/24/13 No administration times (back 96 hours, ahead 96 hours). ------diphenhydrAMINE (BENADRYL) capsule 50 mg #[id number] Admin Amount: 1 Cap (1 x 50 mg Cap) Ordered Dose: 50 mg Route: Garya l Freq: NOW Start Date: 12/24/13 No administration times (back 96 hours, ahe ad 96 hours). ------diazepam (VALIUM) tablet 5 mg #[id number] Admin Amount: 1 Tab (1 x 5 mg Tab) Ordered Dose: 5 mg Route: Oral Freq: ON CE Start Date: 12/24/13 No administration times (back 96 hours, ahead 96 hours). ------lidocaine (XYLOCAINE) 10 mg/mL (1 %) injection 1-30 mL #[id number] Admin Amount: 1-30 mL Ordered Dose: 1-30 mL Route: IntraDERMal Freq: ONCE Start Date: 12/24/13 No administration times (back 96 hours, ahead 96 hours). ------heparin (PF) 2 units/ml in NS infusion 2,000 Units #[id number] Admin Amount: 1,000 mL = 2,000 Units of 2 Units/mL Ordered Dose: 1,000 mL Ro [place]: Irrigation Freq: ONCE Start Date: 12/24/13 No administration times (back 96 hours, ahead 96 hours). ------heparinized saline 2 units/mL infusion 1,000 Units #[id number] Admin Amount: 500 mL = 1,000 Units of 2 Units/mL Ordered Dose: 500 mL Ro [place]: IntraarTERial Freq: ONCE Start Date: 12/24/13 No administration times (back 96 hours, ahead 96 hours). ------0.9% sodium chloride infusion #[id number] Ordered Dose: 75 mL/hr Route: IntraVENous Freq: CONTINUOUS Start Date: 12/24/13 Rate: 75 mL/hr Duration: No administration times (back 96 hours, ahead 96 hours). ------ioversol (OPTIRAY) 320 mg iodine/mL contrast injection 1-100 mL #[id number] Admin Amount: 1-100 mL Ordered Dose: 1-100 mL Route: IntraVENous Freq: RAD O NCE Start Date: 12/24/13 No administration times (back 96 hours, ahead 96 hours).Maxwell Bray MR#: [id number] * Rm: [id number]: 5' 10" Wt: 280 lb Co de: Prior Iso:Diagnosis:Allergies: No Known Allergies -------- Current as of: 08/16/19 2246 GI=Given IC=IV Complet ed NB=New Bag --gadobutrol (GADAVIST) contrast solution 1-10 mL #[id number] Admin Amount: 1-10 mL Ordered Dose: 1-10 mL Route: IntraVENous Freq: RAD O NCE Start Date: 01/13/14 No administration times (back 96 hours, ahead 96 hours). ------sodium chloride (NS) flush 5-10 mL #[id number] Admin Amount: 5-10 mL Ordered Dose: 5-10 mL Route: IntraVENous Freq: RAD ONCE Start Date: 01/13/14 No administration times (back 96 hours, ahead 96 hours). ------sodium chloride (NS) 0.9 % flush #[id number] Ordered Dose: Route: Freq: Start Date: 01/13 No administration times (back 96 hours, ahead 96 hours). ------morphine injection 2 mg #[id number] Admin Amount: 1 mL = 2 mg of 2 mg/mL Ordered Dose: 2 mg Route: IntraVENous Freq: NOW Start Date: 03/13/15 No administration times (back 96 hours, ahe ad 96 hours). ------influenza vaccine (4 yr+)(PF) (FLUCELVAX QUAD) inj ection 0.5*#[id number] Admin Amount: 0.5 mL Ordered Dose: 0.5 mL Route: IntraMUSCular Freq: PRIOR TO DISCHARGE Start Date: 03/30/16 No administration times (back 96 hours, ahead 96 hours). ------oxyCODONE-acetaminophen (PERCOCET) 5-325 mg per tablet 1 Tab #[id number] Admin Amount: 1 Tab Ordered Dose: 1 Tab Route: Oral Freq: NOW Start Date: 09/07/17 No administration times (back 96 hours, ahead 96 hours). ------barium sulfate (READICAT) 2.1 % (w/v), 2.0 % (w /w) oral suspension 9*#[id number] Admin Amount: 900 mL Ordered Dose: 900 mL Route: Oral Delgado q: RAD ONCE Start Date: 10/15/17 No administration times (back 96 hours, ahead 96 hours). ------iopamidol (ISOVUE 300) 61 % contrast injection 100 mL #[id number] Admin Amount: 100 mL Ordered Dose: 100 mL Route: IntraVENous Freq: RAD ONC E Start Date: 10/15/17 No administration times (back 96 hours, ahead 96 hours).Maxwell Bray MR#: [id number] * Rm: [id number]: 5' 10" Wt: 280 lb Code: Prior Iso:Diagnosis:Allergies: No Known Allergies -------- Current as of: 08/16/192245 GI=Given IC=IV Complet ed NB=New Bag --risperiDONE (RisperDAL m-tabs) disintegrating tablet 1 mg #[id number] Admin Amount: 1 Tab (1 x 1 mg Tab) Ordered Dose: 1 mg Route: Oral Freq: ONCE Start Date: 12/24/17 No administration times (back 96 hours, ahead 96 hours). ------ALPRAZolam (XANAX) tablet 2 mg #[id number] Admin Amount: 4 Tab (4 x 0.5 mg Tab) Ordered Dose: 2 mg Route: Ora l Freq: NOW Start Date: 12/24/17 No administration times (back 96 hours, ahe ad 96 hours). ------lamoTRIgine (LaMICtal) tablet 100 mg #[id number] Admin Amount: 1 Tab (1 x 100 mg Tab) Ordered Dose: 100 mg Route: Oral Delgado q: ONCE Start Date: 12/24/17 No administration times (back 96 hours, ahead 96 hours). ------OLANZapine (ZyPREXA zydis) disintegrating tablet 5 mg #[id number] Admin Amount: 1 Tab (1 x 5 mg Tab) Ordered Dose: 5 mg Route: Oral Delgado q: ONCE Start Date: 12/25/17 No administration times (back 96 hours, ahead 96 hours). ------LORazepam (ATIVAN) tablet 2 mg #[id number] Admin Amount: 4 Tab (4 x 0.5 mg Tab) Ordered Dose: 2 mg Route: Ora l Freq: NOW Start Date: 12/25/17 No administration times (back 96 hours, [facility] ad 96 hours). ------LORazepam (ATIVAN) injection 1 mg #[id number] Admin Amount: 0.5 mL = 1 mg of 2 mg/mL Ordered Dose: 1 mg Route: Int TrevorENous Freq: NOW Start Date: 12/25/17 No administration times (back 96 hours, [facility] ad 96 hours). ------barium sulfate (EZ PAQUE) 96 % (w/w) contrast suspension 17 6 g #[id number] Admin Amount: 176 g Ordered Dose: 176 g Route: Oral Freq: RAD ONCE Start Date: 08/02/18 No administration times (back 96 hours, ahead 96 hours). ------barium sulfate (EZ PAQUE) 96 % (w/w) contrast s uspension 176 g #[id number] Admin Amount: 176 g Ordered Dose: 176 g Route: Oral Delgado q: RAD ONCE Start Date: 08/02/18 No administration times (back 96 hours, ahead 96 hours).Maxwell Ritter MR#: [id number] * Rm: [id number]: 5' 10" Wt: 280 lb Co de: Prior Iso:Diagnosis:Allergies: No Known Allergies -------- Current as of: 08/16/192245 GI=Given IC=IV Complet ed NB=New Bag --aspirin chewable tablet 162 mg #[id number] Admin Amount: 2 Tab (2 x 81 mg Tab) Ordered Dose: 162 mg Route: Oral Freq: NOW Start Date: 08/10/19 No administration times (back 96 hours, ahead 96 hours). ------famotidine (PF) (PEPCID) 20 mg in 0.9% sodium chloride 10 mL inje cti*#[id number] Admin Amount: 20 mg Ordered Dose: 20 mg Route: IntraVENous Freq: EVERY 12 H OURS Start Date: 08/16/19 Administration times (back 96 hours, ahead 96 hours): 08/16/19: 211G I 08/17/19: 89908/18/19: 89908/19/19: 89908/20/19: 899 2099 ---0.9% sodium chloride infusion 1,000 mL #[id number] Admin Amount: 1,000 mL Ordered Dose: 1,000 mL Route: IntraVENous Freq: ONC E Start Date: 08/16/19 Rate: 1,000 mL/hr Duration: Administration times (back 96 hours, ahead 96 hours): 08/16/19: 2118NB 2245IC -----methylPREDNISolone (PF) (Solu-MEDROL) injection 125 mg #[id number] Admin Amount: 2 mL = 125 mg of 125 mg/2 mL Ordered Dose: 125 mg Route: Int raVENous Freq: NOW Start Date: 08/16/19 Administration times (back 96 hours, ahe ad 96 hours): 08/16/19: 2118GI -----aspirin chewable tablet 162 mg #[id number] Admin Amount: 2 Tab (2 x 81 mg Tab) Ordered Dose: 162 mg Route: Oral Delgado q: NOW Start Date: 08/16/19 Administration times (back 96 hours, ahead 96 hours): 08/16/19: 2118 ED Current OP MedicationsbuPROPion XL (WELLBUTRIN XL) 300 mg XL tabletSig:Take 300 mg by mouth every morning.Dispense Amount:Start Date:End Date:Doc. Provider : Other, Phys, MDlithium carbonate 150 mg capsuleSig:Take 300 mg by mouth three (3) times daily.Dispense [place] unt:Start Date:End Date:Doc. Provider: Other, Phys, MDpredniSONE (DELTASONE) 50 mg tabletSig:Take 1 [...] Canas M DDetails:In 2 daysComments:Contact Info:[address] 285Co[id number] [phone]-up With:[facility] DEPARTMENTDetails:Comments:As needed, If symptoms worsenContact Info:[address] [place] [phone] Name Value Range Interpretation Code Description Data Melani rce(s) Supporting Document(s ) ID Date Data Source [id number] 08/16/2019 10:45:45 PM [facility] IV site clean/dry/intact, gauze dressing applied. Pt received written and verbaldischarge instructions. Verbalize d understanding of same. Ambulated out of EDwith steady gait and in no distress. Name Value Range Interpretation Code Description Data Melani rce(s) Supporting Document(s ) ID Date Data Source [id number] 08/16/2019 09:58:14 PM [facility] Name Value Range Interpretation Description Data Sup porting Code Source(s) Document(s ) Gustavus 0.21 0.6-1.2 Below low normal [facility] [Moles/volu MMOL/L [facility]] in Hospital Serum or Plasma ID Date Data Source [id number] 08/16/2019 09:52:19 PM [facility] Name Value Range Interpretation Code Description Data Melani rce(s) Supporting Document(s ) Fibrin <500 [facility] D-dimer [facility] [[facility]] [facility] in Platelet poor plasma (NOTE)Combination of a D-Dimer result wi thin the reference range and a lowclinical pretest probability has good negative pr edictive value fordeep venous thrombosis.If results are utilized for VTE evaluation, <500 ng/ml is consideredto be negative. ID Date Data Source [id number] 08/16/2019 09:44:39 PM [facility] Name Value Range Interpretation Description Data Sup porting Code Source(s) Document(s ) Troponin 0.00-0.05 [facility] I.cardiac [facility] ] in Serum or Plasma (NOTE)The [...] cTnI cutoff/range of values consistent with m cononral infarction: 0.60 to 1.50 ng/mL ID Date Data Source [id number] 08/16/2019 09:44:39 PM EST [facility] Name Value Range Interpretation Description Data Sup porting Code Source(s) Document(s ) Sodium 138 136-145 [facility] [Moles/volume] mmol/L [facility] in Serum or Hospital Plasma Potassium 3.4 3.5-5.1 Below low normal [facility] [Moles/volume] mmol/L [facility] in Serum or Hospital Plasma Chloride 108 98-107 Above high normal [facility] [Moles/volume] mmol/L [facility] in Serum or Hospital Plasma Carbon 20 21-32 Below low normal [facility] dioxide, total mmol/L [facility] [Moles/volume] Hospital in Serum or Plasma Anion gap in 14 10-20 [facility] Serum or mmol/L [facility] Plasma Hospital Glucose 105 74-106 [facility] [Mass/volume] mg/dL [facility] in Serum or Hospital Plasma Urea nitrogen 20 mg/dL 7-18 Above high normal [facility] [Mass/volume] [facility] in Serum or Hospital Plasma Creatinine 0.90 0.70-1.3 [facility] [Mass/volume] mg/dL 0 [facility] in Serum or Hospital Plasma Glomerular >60 [facility] filtration [facility] rate/1.73 sq M Hospital predicted among blacks [Volume Rate/Area] in Serum or Plasma by Creatinine-bas ed formula (MDRD) Glomerular >60 [facility] filtration [facility] rate/1.73 sq M Hospital predicted among non-blacks [Volume Rate/Area] in Serum or Plasma by Creatinine-bas ed formula (MDRD) (NOTE)Estimated GFR is calculated using the Modification of Diet in RenalDisease (MDRD) Study equation, reported for both Americans(GFRAA) and non- Americans (GFRNA), and normalized to 1.7 0w2ixbc surface area. The physician must decide which [...] normal [facility] Serum or Plasma [facility] ital Bilirubin.total 0.3 mg/dL 0.2-1.0 [facility] [Mass/volume] in Serum or [facility] Plasma Alanine aminotransferase 37 U/L 13-61 [facility] [Enzymatic activity/volume] [facility] in Serum or Plasma Aspartate aminotransferase 22 U/L 15-37 [facility] - [facility] [Enzymatic activity/volume] [facility] in Serum or Plasma by With P-5'-P Alkaline phosphatase 98 U/L 45-117 [facility] - G ood [Enzymatic activity/volume] [facility] in Serum or Plasma Protein [Mass/volume] in 7.0 g/dL 6.4-8.2 [facility] Serum or Plasma [facility] ital Albumin [Mass/volume] in 3.7 g/dL 3.5-4.7 [facility] Serum or Plasma by [facility] ospital Bromocresol purple (BCP) dye binding method Globulin [Mass/volume] in 3.3 g/dL 1.7-4.7 [facility] Serum by calculation [facility] Albumin/Globulin [Mass 1.1 0.7-2.8 [facility] Ratio] in Serum or Plasma [facility] ID Date Data Source [id number] 08/16/2019 09:44:39 PM EST [facility] Name Value Range Interpretation Description Data Sup porting Code Source(s) Document(s ) Magnesium 2.3 mg/dL 1.6-2.6 [facility] [Mass/volume] [facility] in Serum or Hospital Plasma ID Date Data Source [id number] 08/16/2019 09:23:23 PM EST [facility] Name Value Range Interpretation Description Data Sup porting Code Source(s) Document(s ) Leukocytes 7.6 K/uL 4.8-10.6 [facility] - [#/volume] in Good Blood by [facility] Automated [facility] Erythrocytes 4.97 4.70-6.0 [facility] - [#/volume] in M/uL 0 [facility] Blood by [facility] Automated count Hospital Hemoglobin 15.2 14.0-18. [facility] - [Mass/volume] in g/dL 0 [facility] Blood [facility] Hematocrit 45.0 % 42.0-52. [facility] - [Volume 0 Good Fraction] of [facility] Blood by Hospital Automated count Erythrocyte mean 90.5 FL 81.0-94. [facility] - corpuscular 0 Good volume [Entitic [facility] volume] by Hospital Automated count Erythrocyte mean 30.6 PG 27.0-35. [facility] - corpuscular 0 Good hemoglobin [facility] [Entitic mass] Hospital by Automated count Erythrocyte mean 33.8 30.7-37. [facility] - corpuscular g/dL 3 Good hemoglobin [facility] concentration Hospital [Mass/volume] by Automated count Erythrocyte 13.0 % 11.5-14. [facility] - distribution 0 Good width [Ratio] by [facility] Automated count Hospital Platelets 183 K/uL 130-400 [facility] - [#/volume] in Good Blood by [facility] Automated count Hospital Platelet mean 8.5 FL 9.2-11.8 Below low normal [facility] - volume [Entitic Good volume] in Blood [facility] by Automated Hospital count Nucleated 0.0 PER 0 [facility] - erythrocytes/100 100 WBC Good leukocytes [facility] [Ratio] in Blood Hospital Nucleated 0.00 0.0-0.01 [facility] - erythrocytes K/uL Good [#/volume] in [facility] Segmented 68 % 48.0-72. [facility] - neutrophils/100 0 Good leukocytes in [facility] Lymphocytes/100 19 % 18.0-40. [facility] - leukocytes in 0 [facility] Blood [facility] Monocytes/100 7 % 2.0-12.0 [facility] - leukocytes in [facility] Blood [facility] Eosinophils/100 5 % 0.0-7.0 [facility] - leukocytes in [facility] Blood [facility] Basophils/100 1 % 0.0-3.0 [facility] - leukocytes in [facility] Blood [facility] Immature 1 % 0-0.5 Above high normal [facility] - granulocytes/100 Good leukocytes in [facility] Blood by Hospital Automated count Segmented 5.2 K/UL 2.3-7.6 [facility] - neutrophils Good [#/volume] in [facility] Lymphocytes 1.5 K/UL 0.9-4.2 [facility] - [#/volume] in [facility] Monocytes 0.6 K/UL 0.1-1.7 [facility] - [#/volume] in [facility] Eosinophils 0.3 K/UL 0.0-1.0 [facility] - [#/volume] in [facility] Basophils 0.0 K/UL 0.0-0.4 [facility] - [#/volume] in [facility] Immature 0.0 K/UL 0.0-0.17 [facility] - granulocytes Good [#/volume] in [facility] Hospital Automated count Differential [facility] - cell count [facility] ID Date Data Source [id number] 08/16/2019 08:50:30 PM EST [facility] sudden onset of difficulty breathing and rash while eating leticia food, rashacross face and chest slightly raised, no vesicles, denies any chest pain deniesany itching at this time. Went to urgent care, recei nataliia benadryl 50 mg IMfrom EMS. Name Value Range Interpretation Code Description Data [facility] Supporting Document(s ) ID Date Data Source [id number] 08/11/2019 08:03:02 AM EST [facility] History:Chest pain. Shortness of breath. FINDINGS:A single [...] Range Interpretation Code Description Data [facility] rce(s) Supporting Document(s ) ID Date Data Source [id number] 08/11/2019 04:22:14 AM EST [facility] The history is provided by the patient [...] morbidity or mortality cardiac cath at [facility] approx 6-8 months ag o Other [...] e Gets together: Not on file Attends taoist service: Not on file 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 [...] QTC Calculation (Bezet) 435 ms Calculated P [place] 55 degrees Calculated R [place] 34 degrees Calculated T [place] 9 degrees Diagnosis S inus tachycardiaOtherwise normal [...] Time: 08/11/19 12:01 AMResult Value Ref Range Gustavus level <0.20 (L) 0.6 - 1.2 MMOL/LLACTIC [...] Authorizing ProviderVRAYLAR 6 mg capsule 07/07/19 Provider, Historic alcyclobenzaprine (FLEXERIL) 10 mg tablet Take 1 [...] daily. Other, Zoe Miller Priti V, MD I, Marcy Iniguez, am serving as a scribe to document [...] 36N*ENCOUNTER 08/11/2019 01:42:54 AM EST [facility] - [facility] [id number] [facility] [address] [facility] [address] [phone]/ Maxwell Mitchell Anam (Male) [id number] JOSE 2 ED Dispo:DISCHARGE Chief Complaint: Chest Pain, Shortne ss of Breath Diagnosis: Dyspnea, unspecified type [] Current Providers: Atte nding: Javier Quezada Primary Nurse: ELIS WilsonN: [id number] Print Grou p [phone] - Bshsi Ed Medva MrnMRN: [id number] Print Group [phone] - Bs hsi Ed Medva Age SexDOB 1970 AGE 49 SEX Male Primary Care Provider: Ritika Canas MD Phone: [phone]: (No Known Allergies)Date Reviewed: 08/10/2019Reviewed by: Chiquis Christianson CompleteED Provider Notes: No notes of this type exist for this encounter.ED Orders [id number] E KG, 12 LEAD, INITIAL [#[id number]] Priority: STAT Class: Hospital Performed Stand ing Order Information Remaining Occurrences:0/1 Interval:ONE TIME Last released:0 08/10/2019 Released orders: [place] Aug 10, 2019 10:17 PM by: CHIQUIS CHRISTIANSON Reason for Exam: -> CP SOB [id number] EKG, 12 LEAD, INITIAL [#[id number]] Priority: STAT Class: Hospital Performed Specimen Collected: 08/10/2019 10:14 PM Resulting Agency: [facility] Test ID: [id number] Reason for Exam: -> CP SOB Released on: 08/10/2019 10:17 PM [id number] EKG, 12 LE AD, INITIAL [#[id number]] Priority: STAT Class: Hospital Performed Standing Or mariano Information Remaining Occurrences:0/1 Interval:ONE TIME Last released:0 08/10/2019 Released orders: [place] Aug 10, 2019 11:51 PM by: MAYANK QUEZADA V Reason fo r Exam: -> Chest Pain [id number] EKG, 12 LEAD, INITIAL [#[id number]] Priority: STAT C lass: Hospital Performed Resulting Agency: [facility] Test ID: [id number] Reason for Exam: -> Chest P ain Released on: 08/10/2019 11:51 PM [id number] 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 [#[id number]] Priority: STAT Class: Hospital Performed Standing Order Information Remaining Occurre nces:0/1 Interval:Continuous Last released:08/10/2019 Released orders : [place] Aug 10, 2019 11:51 PM by: MAYANK QUEZADA V Type: -> Bedside [id number] PULSE OXIMETR Y CONTINUOUS [#[id number]] Priority: STAT Class: Hospital Performed Standing Or mariano Information Remaining Occurrences:0/1 Interval:CONTINUOUS Last released :08/10/2019 Released orders: [place] Aug 10, 2019 11:51 PM by: MAYANK QUEZADA V [id number] PULSE OXIMETRY SPOT CHECK [#[id number]] Priority: STAT Class: Hospital Performe d Standing Order Information Remaining Occurrences:0/1 Interval:ONE TIME Last r eleased:08/10/2019 Released orders: [place] Aug 10, 2019 11:51 PM by: MAYANK QUEZADA V NU [id number] OBTAIN OLD EKG [#[id number]] Priority: Routine Class: Hospital Perfo rmed Standing Order Information Remaining Occurrences:0/1 Interval:ONE TI ME Last released:08/10/2019 Released orders: [place] Aug 10, 2019 11:51 PM by: MAYANK QUEZADA V [id number] 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 [#[id number]] Priority: STAT Class: H ospital Performed Type: -> Bedside Released on: 08/10/2019 11:51 PM [id number] PULSE OXIM ETRY CONTINUOUS [#[id number]] Priority: STAT Class: Hospital Performed Released on : 08/10/2019 11:51 PM [id number] PULSE OXIMETRY SPOT CHECK [#[id number]] Priority: STAT C lass: Hospital Performed Released on: 08/10/2019 11:51 PM [id number] OBTAIN OLD EKG [#[id number]] Priority: STAT Class: Hospital Performed Released on: 08/10/2019 11: 51 PM [id number] RT--OXYGEN CANNULA [#[id number]] Priority: STAT Class: H ospital Performed Standing Order Information Remaining Occurrences:0/1 Interval:CONTIN UOUS Last released:08/10/2019 Released orders: [place] Aug 10, 2019 11:51 PM by: AMYANK PRADO V Comment:TITRATE UP TO 4 L / MINUTE TO MAINTAIN O2 SATS GREATER THAN OR EQUAL TO 94% LPM -> 2 Indications for O2? -> CHEST PAIN [id number] RT--OXYGEN CANNULA [#[id number]] Priority: STAT Class: Hospital Performed Comment:TITRATE UP TO 4 L / MINUTE TO MAINTAIN O2 SATS GREATER THAN OR EQUAL TO 94% LPM -> 2 Indications fo r O2? -> CHEST PAIN Released on: 08/10/2019 11:51 PM [id number] DIET NPO [#[id number]] Priority: STAT Class: Hospital Performed Standing Order Information Remaining Occurrences:0/1 Interval:DIET EFFECTIVE NOW Last released:08/10 Released orders: [place] Aug 10, 2019 11:51 PM by: MAYANK QUEZADA V NPO options: - > With Meds [id number] DIET NPO [#[id number]] Priority: STAT Class: H ospital Performed NPO options: -> With Meds Released on: 08/10/2019 11:51 PM [id number] SALINE LOCK IV [#[id number]] Priority: STAT Class: Hospital Performed Standing O rder Information Remaining Occurrences:0/1 Interval:ONE TIME Last released:0 08/10/2019 Released orders: [place] Aug 10, 2019 11:51 PM by: MAYANK QUEZADA V IVT11 SALI NE LOCK IV [#[id number]] Priority: STAT Class: Hospital Performed Relea sed on: 08/10/2019 11:51 PM [id number] METABOLIC PANEL, COMPREHENSIVE [#[id number]] Bridgette ority: STAT Class: ER Collect Standing Order Information Remaining Occurrences:0/1 In terval:ONE TIME Last released:08/10/2019 Released orders: [place] Aug 10, 2019 11:51 PM by: MAYANK QUEZADA V [id number] CBC WITH AUTOMATED DIFF [#[id number]] Priority: STAT Class: ER Collect Standing Order Information Remaining Occurrences:0/1 Inter haile:ONE TIME Last released:08/10/2019 Released orders: [place] Aug 10, 2019 11:51 PM by: MAYANK QUEZADA V [id number] TROPONIN I [#[id number]] Priority: STAT Class: ER Collect Standing Order Information Remaining Occurrences:0/1 Inter haile:ONE TIME Last released:08/10/2019 Released orders: [place] Aug 10, 2019 11:51 PM by: MAYANK QUEZADA V [id number] MAGNESIUM [#[id number]] Priority: STAT Class: ER Collect Standing Order Information Remaining Occurrences:0/1 Inter haile:ONE TIME Last released:08/10/2019 Released orders: [place] Aug 10, 2019 11:51 PM by: MAYANK QUEZADA V [id number] BNP [#[id number]] Priority: STAT Class: ER Collect Standing Order Information Remaining Occurrences:0/1 Inter haile:ONE TIME Last released:08/10/2019 Released orders: [place] Aug 10, 2019 11:51 PM by: MAYANK QUEZADA V [id number] D DIMER [#[id number]] Priority: STAT Class: ER Collect Standing Order Information Remaining Occurrences:0/1 Inter haile:ONE TIME Last released:08/10/2019 Released orders: [place] Aug 10, 2019 11:51 PM by: MAYANK QUEZADA V [id number] PROTHROMBIN TIME + INR [#[id number]] Priority: STAT Class: ER Collect Standing Order Information Remaining Occurrences:0/1 Inter haile:ONE TIME Last released:08/10/2019 Released orders: [place] Aug 10, 2019 11:51 PM by: MAYANK QUEZADA V [id number] PTT [#[id number]] Priority: STAT Class: ER Collect Specimen Source: Blood Standing Order Information Remaining Occurrences:0 /1 Interval:ONE TIME Last released:08/10/2019 Released orders: [place] Aug 10, 2019 11:51 PM by: MAYANK QUEZADA V [id number] LITHIUM [#[id number]] Pr iority: STAT Class: ER Collect Standing Order Information Remaining Occurrences:0/1 I nterval:ONE TIME Last released:08/10/2019 Released orders: [place] Aug 10, 2019 11:51 PM by: MAYANK QUEZADA V [id number] METABOLIC PANEL, COMPREHENSIVE [#[id number]] Bridgette ority: STAT Class: ER Collect Specimen Source: Plasma Specimen Collected: 08/11/2019 12:01 AM Resulting Agency: [facility] Test ID: MPL Released on: 08/10/2019 11:51 PM [id number] CBC WITH AUTOMATED DIFF [#[id number]] Priority: STAT Class: E R Collect Specimen Source: Whole Blood Specimen Collected: 08/11/2019 12:01 AM Resulting Agency: [facility] Test ID: CBCXA Released on: 08/10/2019 11:51 PM [id number] TROPON IN I [#[id number]] Priority: STAT Class: ER Collect Specimen Source: [place] sma Specimen Collected: 08/11/2019 12:01 AM Resulting Agency: [facility] RY Test ID: TROIP Released on: 08/10/2019 11:51 PM [id number] MAGNESIUM [#[id number]] Priority: STAT Class: ER Collect Specimen Source: Plasma Specimen Collec hyun: 08/11/2019 12:01 AM Resulting Agency: [facility] Test ID: MGPL Re leased on: 08/10/2019 11:51 PM [id number] BNP [#[id number]] Priority : STAT Class: ER Collect Specimen Source: Plasma Specimen Collected: 08/11/2019 12:01 AM Resultin g Agency: [facility] Test ID: BNPPB Released on: 08/10/2019 11:51 PM [id number] 74 D DIMER [#[id number]] Priority: STAT Class: ER Collect Speci men Source: Plasma Specimen Collected: 08/11/2019 12:01 AM Resulting Agency: [facility] Test ID: DDIME Released on: 08/10/2019 11:51 PM [id number] PROTHROMBIN TIME + INR [#[id number]] Priority: STAT Class: ER Collect Specimen Source: Plasma Specimen Collec hyun: 08/11/2019 12:01 AM Resulting Agency: [facility] Test ID: APTHR R eleased on: 08/10/2019 11:51 PM [id number] PTT [#[id number]] Priorit y: STAT Class: ER Collect Specimen Source: Plasma Specimen Collected: 08/11/2019 12:01 AM Resultin g Agency: [facility] Test ID: APTT Released on: 08/10/2019 11:51 PM [id number] LITHIUM [#[id number]] Priority: STAT Class: ER Collect Speci men Source: Serum Specimen Collected: 08/11/2019 12:01 AM Resulting Agency: [facility] Test ID: LI Released on: 08/10/2019 11:51 PM [id number] LACTIC ACID [#[id number]] Priority: STAT Class: ER Collect Standing Order Information Remainin g Occurrences:0/1 Interval:ONE TIME Last released:08/11/2019 Released orders : SunAug 11, 2019 12:15 AM by: KATI WILSON [id number] LACTIC ACID [#[id number]] Priority: STAT Class: ER Collect Specimen Source: Plasma Specimen Collec hyun: 08/11/2019 12:01 AM Resulting Agency: [facility] Test ID: LAC Rel eased on: 08/11/2019 12:15 AM ASPIRIN 81 MG CHEWABLE TAB [#[id number]] Priority: STAT Class: Normal [id number] XR CHEST PORT [#[id number]] Priority: STAT Cl ass: Hospital Performed Standing Order Information Remaining Occurrences:0/1 Inter haile:ONE TIME Last released:08/10/2019 Released orders: Sun Aug 10, 2019 11:51 PM by: MAYANK QUEZADA V Reason for Exam -> Chest Pain [id number] XR CHEST PORT [#[id number]] Priority: STAT Class: Hospital Performed Resulting Agency: [facility] Test ID: [id number] Reason for Exam -> Chest Pain Released on: 08/10/2019 11:51 PM [id number] INFLUENZA A & B AG (RAPID TEST) [#[id number]] Priority: STAT Class: ER Collect Sta nding Order Information Remaining Occurrences:0/1 Interval:ONE TIME Last released: 08/10/2019 Released orders: Sun Aug 10, 2019 11:51 PM by: MAYANK QUEZADA V [id number] INFL UENZA A & B AG (RAPID TEST) [#[id number]] Priority: STAT Class: ER Collect Specimen Source : Nasal washing Specimen Collected: 08/11/2019 12:18 AM Resulting Agency: [facility] Test ID: INFLUA Released on: 08/10/2019 11:51 PM [id number] CULTURE, BLOOD [#[id number]] Priority: STAT Class: ER Collect Specimen Source: Blood Standing Order Information Remaining Occurrences:0/1 Interval:ONE TIME Last released:0 08/11/2019 Released orders: SunAug 11, 2019 12:15 AM by: KATI WILSON [id number] CULTU RE, BLOOD [#[id number]] Priority: STAT Class: ER Collect Specimen Source : Blood Standing Order Information Remaining Occurrences:0/1 Interval:ONE TI ME Last released:08/11/2019 Released orders: SunAug 11, 2019 12:15 AM by: KATI WILSON [id number] CULTURE, BLOOD [#[id number]] Priority: STAT Class: E R Collect Specimen Source: Blood Specimen Collected: 08/11/2019 12:33 AM Resulting Agency: [facility] Test ID: HBCS Released on: 08/11/2019 12:15 AM [id number] ALEK SWARTZ [#[id number]] Priority: STAT Class: ER Collect Specimen Source: Blo od Specimen Collected: 08/11/2019 12:43 AM Resulting Agency: [facility] Test ID: HBCS Released on: 08/11/2019 12:15 AMMaxwell Bray MR#: [id number] Acct#: [id number]* Rm: KQ77-15Mv: 5' 10" Wt: 280 lb Code: Prior Iso:Diagnosis:Allergies: No Kno wn Allergies -------- Current as of: 08/11/19 0142 GI=Given -------aspirin (ASPIRIN) tablet 325 mg #[id number] Admin Amount: 1 Tab (1 x 325 mg Tab) Ordered Dose: 325 mg Route: Oral Freq: ONCE Start Date: 12/24/13 No administration times (b ack 96 hours, ahead 96 hours). ------diphenhydrAMINE (BENADRYL) capsule 50 mg #[id number] Admin Amount: 1 Cap (1 x 50 mg Cap) Ordered Dose: 50 mg Ro [place]: Oral Freq: NOW Start Date: 12/24/13 No administration times (back 96 hours, ahead 96 hours). ------diazepam (VALIUM) tablet 5 mg #[id number] Admin Amount: 1 Tab (1 x 5 mg Tab) Ordered Dose: 5 mg Route: Oral Freq: ONCE Start Date: 12/24/13 No administration times (back 96 hours, ahead 96 hours). ------lidocaine (XYLOCAINE) 10 mg/mL (1 %) injection 1-3 0 mL #[id number] Admin Amount: 1-30 mL Ordered Dose: 1-30 mL Route: Int raDERMal Freq: ONCE Start Date: 12/24/13 No administration times (back 96 hours, ahead 96 hours). ------heparin (PF) 2 units/ml in NS infusion 2,000 Units #[id number] Admin Amount: 1,000 mL = 2,000 Units of 2 Units/mL Ordered Dose: 1,000 mL Route: Irrigation Freq: ONCE Start Date: 12/24/13 No administration times (back 96 hours, ahead 96 hours). ------heparinized saline 2 units/mL infusion 1,000 Units #[id number] Admin Amount: 500 mL = 1,000 Units of 2 Units/mL Ordered Dose: 500 m L Route: IntraarTERial Freq: ONCE Start Date: 12/24/13 No admini stration times (back 96 hours, ahead 96 hours). ------0.9% sodium chloride infusion #[id number] Ordered Dose: 75 mL/hr Route: IntraVENous Freq: CONTINUOUS Start Date: 12/24/13 Rate: 75 mL/hr Duration: No administration ti mes (back 96 hours, ahead 96 hours). ------ioversol (OPTIRAY) 320 mg iodine/mL contrast inje ction 1-100 mL #[id number] Admin Amount: 1-100 mL Ordered Dose: 1-100 mL Ro [place]: IntraVENous Freq: RAD ONCE Start Date: 12/24/13 No administration times (back 96 hours, ahead 96 hours).Maxwell Bray MR#: [id number] * Rm: [id number] Ht: 5' 10" Wt: 280 lb Code: Prior Iso:Diagnosis:Allergies: No Known Allergies -------- Current as of: 08/11/19 0142 GI=Given -------gadobutrol (GADAVIST) contrast solution 1-10 mL #[id number] Admin Amount: 1-10 mL Ordered Dose: 1-10 mL Route: Int raVENous Freq: RAD ONCE Start Date: 01/13/14 No administration times (back 96 hours, ahead 96 hours). ------sodium chloride (NS) flush 5-10 mL #[id number] Admin Amount: 5-10 mL Ordered Dose: 5-10 mL Route: IntraVENo us Freq: RAD ONCE Start Date: 01/13/14 No administration times (back 96 hours, ahe ad 96 hours). ------sodium chloride (NS) 0.9 % flush #[id number] Ordered Dose: Route: Freq: Start Date: 01/13/14 No administration times (back 96 hours, ahead 96 hours). ------morphine injection 2 mg #[id number] Admin Amount: 1 mL = 2 mg of 2 mg/mL Ordered Dose: 2 mg Route: IntraVENous Freq: NOW Start Date: 03/13/15 No administration t imes (back 96 hours, ahead 96 hours). ------influenza vaccine (4 yr+)(PF) (FLUCELVAX Q UAD) injection 0.5*#[id number] Admin Amount: 0.5 mL Ordered Dose: 0.5 mL Route: Int raMUSCular Freq: PRIOR TO DISCHARGE Start Date: 03/30/16 No administration times (back 9 6 hours, ahead 96 hours). ------oxyCODONE-acetam inophen (PERCOCET) 5-325 mg per tablet 1 Tab #[id number] Admin Amount: 1 Tab Ordered Dose: 1 Tab Route: Oral Freq: NOW Start Date: 09/07/17 No administration times (back 96 hours, e ad 96 hours). ------barium sulfate (READICAT) 2.1 % (w/v), 2.0 % (w/w) oral suspension 9*#[id number] Admin Amount: 900 mL Ordered Dose: 900 mL Route: Oral [place]gado q: RAD ONCE Start Date: 10/15/17 No administration times (back 96 hours, ahe ad 96 hours). ------iopamidol (ISOVUE 300) 61 % contrast injection 100 mL #[id number] Admin Amount: 100 mL Ordered Dose: 100 mL Route: Int raVENous Freq: RAD ONCE Start Date: 10/15/17 No administration times (back 96 hours, ahead 96 hours).Maxwell Bray MR#: [id number] * Rm: [id number]: 5' 1 0" Wt: 280 lb Code: Prior Iso:Diagnosis:Allergies: No Known Allergies -------- Current as of: 08/11/192 GI=Given -------risperiDONE (RisperDAL m-tabs) disintegrating tablet 1 mg #[id number] Admin Amount: 1 Tab (1 x 1 mg Tab) Ordered Dose: 1 mg Route: Oral Freq: ONCE Start Date: 12/24/17 No administration times (back 96 hours, ahead 96 hours). ------ALPRAZolam (XANAX) tablet 2 mg #[id number] Admin Amount: 4 Tab (4 x 0.5 mg Tab) Ordered Dose: 2 mg Route: Oral Freq: NOW Start Date: 12/24/17 No administration times (back 96 hours, ahead 96 hours). ------lamoTRIgine (LaMICtal) tablet 100 mg #[id number] Admin Amount: 1 Tab (1 x 100 mg Tab) Ordered Dose: 100 mg Route: Oral Freq: ONCE Start Date: 12/24/17 No administration times (back 96 hours, ahead 96 hours). ------OLANZapine (ZyPREXA zydis) disintegrating tablet 5 mg #[id number] Admin Amount: 1 Tab (1 x 5 mg Tab) Ordered Dose: 5 mg Route: Oral Freq: ONCE Start Date: 12/25/17 No administration times (back 96 hours, ahead 96 hours). ------LORazepam (ATIVAN) tablet 2 mg #[id number] Admin Amount: 4 Tab (4 x 0.5 mg Tab) Ordered Dose: 2 mg Route: Oral Freq: NOW Start Date: 12/25/17 No administration times (back 96 hours, ahead 96 hours). ------LORazepam (ATIVAN) injection 1 mg #[id number] Admin Amount: 0.5 mL = 1 mg of 2 mg/mL Ordered Dose: 1 mg Route: IntraVENous Freq: NOW Start Date: 12/25/17 No administration ti mes (back 96 hours, ahead 96 hours). ------barium sulfate (EZ PAQUE) 96 % (w/w) contrast suspensio n 176 g #[id number] Admin Amount: 176 g Ordered Dose: 176 g Route: Oral Delgado q: RAD ONCE Start Date: 08/02/18 No administration times (back 96 hours, [facility] ad 96 hours). ------barium sulfate (EZ PAQUE) 96 % (w/w) contrast suspensio n 176 g #[id number] Admin Amount: 176 g Ordered Dose: 176 g Route: Oral Delgado q: RAD ONCE Start Date: 08/02/18 No administration times (back 96 hours, e ad 96 hours).Maxwell Bray MR#: [id number] * Rm: [id number]: 5' 10" Wt: 280 lb Code: Prior Iso:Diagnosis:Allergies: No Known Allergies -------- Current as of: 08/11/19 0142 GI=Given -------aspirin chewable tablet 162 mg #[id number] Admin Amount: 2 Tab (2 x 81 [...] DAYSDispense Am ount:Start Date:07/17/2018End Date:Doc. Provider: Provider, HistoricalclonazePAM (KLONOPIN) 2 mg tab letSig:Take 2 mg by mouth two (2) times a day.Dispense Amount:Start Date:End Date:Doc. Provider : Paul Bradford MDfluoxetine HCl (PROZAC PO)Sig:Take 60 mg by mouth daily.Dispense Amount:Start Date: Date:Doc. Provider: Paul Bradford MD ED Prescriptions None on FileFollow-up InformationFollow-up With:Ritika Canas MDDetails:Schedule an appointment as soon as possible for a visit in 1 dayComments:Contact Info:[place] Rodrgiuez [address] [facility] [phone] With:Detail s:Comments:As needed, If symptoms worsenContact Info: Name Value Range Interpretation Code Description Data Melani rce(s) Supporting Document(s ) ID Date Data Source [id number] 08/11/2019 01:40:37 AM EST [facility] I have reviewed discharge instructions w ith the patient and spouse. The patientand spouse verbalized understanding.\\ Name Value Range Interpretation Code Description Data Melani rce(s) Supporting Document(s ) ID Date Data Source [id number] 08/16/2019 06:35:29 AM EST [facility] Name Value Range Interpretation Description Data Sup porting Code Source(s) Document(s ) Service comment [facility] Bacteria [facility] - [facility] ID Date Data Source [id number] 08/16/2019 06:35:28 AM EST [facility] Name Value Range Interpretation Description Data Sup porting Code Source(s) Document(s ) Service comment [facility] Bacteria [facility] - [facility] by Culture ID Date Data Source [id number] 08/11/2019 12:56:01 AM EST [facility] Name Value Range Interpretation Description Data Sup porting Code Source(s) Document(s ) Influenza virus NEG [facility] A Ag [Presence] [facility] by Immunoassay Influenza virus NEG [facility] - Good B Ag [Presence] [facility] by Immunoassay IMMUNOCHROMATOGRAPHIC MEMBRANE ASSAYResu lt: Negative for Influenza A and BNote: A negative result does not exclude an infl uenza virus infection, including H1N1. If more conclusive testing is desired, foll ow-up confirmatory testing is warranted. Specimen source [Identifier] of Unspecified [facility] specimen ID Date Data Source [id number] 08/11/2019 01:35:58 AM EST [facility] Name Value Range Interpretation Description Data Sup porting Code Source(s) Document(s ) Prothrombin 9.6 sec 9.4-11.1 [facility] - Good time (PT) [facility] INR in 0.9 0.8-1.2 [facility] - Good Platelet poor [facility] plasma by Hospital Coagulation assay ID Date Data Source [id number] 08/11/2019 01:35:58 AM EST [facility] Name Value Range Interpretation Description Data Sup porting Code Source(s) Document(s ) aPTT in 23.1 SEC 21.0-28. [facility] - Good Platelet poor 0 [facility] plasma by [facility] Coagulation assay Therapeutic Range = 42.0-60.0 secs ID Date Data Source [id number] 08/11/2019 01:30:36 AM EST [facility] Value Range Interpretation Description Data Sup porting Code Source(s) Document(s ) Natriuretic 19 pg/mL 0-100 [facility] peptide B [facility] [Mass/volume] [facility] in Serum or Plasma ID Date Data Source [id number] 08/11/2019 01:25:10 AM EST [facility] Value Range Interpretation Code Description Data Supporting Source(s) Document(s ) Gustavus 0.6-1.2 Below low normal [facility] - Good [Moles/volum [facility] e] in Serum Hospital or Plasma ID Date Data Source [id number] 08/11/2019 01:20:56 AM EST [facility] Value Range Interpretation Code Description Data Melani rce(s) Supporting Document(s ) Fibrin <500 [facility] - Good D-dimer FEU [facility] [Mass/volume] [facility] in Platelet poor plasma (NOTE)Combination of a D-Dimer result wi thin the reference range and a lowclinical pretest probability has good negative pr edictive value fordeep venous thrombosis.If results are utilized for VTE evaluation, <500 ng/ml is consideredto be negative. ID Date Data Source [id number] 08/11/2019 01:09:42 AM [facility] Interpretation Description Data Sup porting Code Source(s) Document(s ) Lactate 1.7 0.4-2.0 [facility] - Good [Moles/volu MMOL/L [facility] me] in Hospital Serum or Plasma ID Date Data Source [id number] 08/11/2019 01:09:42 AM EST [facility] Good [facility] Name Value Range Interpretation Description Data Sup porting Code Source(s) Document(s ) Troponin 0.00-0.05 [facility] - Good I.cardiac [facility] [Mass/volume Hospital ] in Serum or Plasma [...] to 1.50 ng/mL ID Date Data Source [id number] 08/11/2019 01:09:42 AM EST [facility] - Good [facility] Value Range Interpretation Description Data Sup porting Code Source(s) Document(s ) Sodium 140 136-145 [facility] - Good [Moles/volume] mmol/L [facility] in Serum or Hospital Plasma Potassium 3.9 3.5-5.1 [facility] - Good [Moles/volume] mmol/L [facility] in Serum or Hospital Plasma Chloride 113 98-107 Above high normal [facility] - Good [Moles/volume] mmol/L [facility] in Serum or Hospital Plasma Carbon 21 21-32 [facility] - Good dioxide, total mmol/L [facility] [Moles/volume] Hospital in Serum or Plasma Anion gap in 10 10-20 [facility] - Good Serum or mmol/L [facility] Plasma Hospital Glucose 90 mg/dL 74-106 [facility] - Good [Mass/volume] [facility] in Serum or Hospital Plasma Urea nitrogen 18 mg/dL 7-18 [facility] - Good [Mass/volume] [facility] in Serum or Hospital Plasma Creatinine 0.78 0.70-1.3 [facility] - Good [Mass/volume] mg/dL 0 [facility] in Serum or Hospital Plasma Glomerular >60 [facility] - Good filtration [facility] rate/1.73 sq M Hospital predicted among blacks [Volume Rate/Area] in Serum or Plasma by Creatinine-bas ed formula (MDRD) Glomerular >60 [facility] - Good filtration [facility] rate/1.73 sq M Hospital predicted among non-blacks [Volume Rate/Area] in Serum or Plasma by Creatinine-bas ed formula (MDRD) (NOTE)Estimated GFR is calculated using the Modification of Diet in RenalDisease (MDRD) Study equation, reported for both Americans(GFRAA) and non- Americans (GFRNA), and normalized to 1.7 [id number] surface area. The physician must decide which [...] normal [facility] - Good Serum or Plasma [facility] Hosp ital Bilirubin.total 0.5 mg/dL 0.2-1.0 [facility] - Good [Mass/volume] in Serum or [facility] Plasma Alanine aminotransferase 29 U/L 13-61 [facility] - Good [Enzymatic activity/volume] [facility] in Serum or Plasma Aspartate aminotransferase 18 U/L 15-37 [facility] - Good [Enzymatic activity/volume] [facility] in Serum or Plasma by With P-5'-P Alkaline phosphatase 98 U/L 45-117 [facility] - G ood [Enzymatic activity/volume] [facility] in Serum or Plasma Protein [Mass/volume] in 6.7 g/dL 6.4-8.2 [facility] - Good Serum or Plasma [facility] Hosp ital Albumin [Mass/volume] in 3.4 g/dL 3.5-4.7 Below low normal [facility] - Good Serum or Plasma by [facility] H ospital Bromocresol purple (BCP) dye binding method Globulin [Mass/volume] in 3.3 g/dL 1.7-4.7 [facility] - Good Serum by calculation [facility] Albumin/Globulin [Mass 1.1 0.7-2.8 [facility] - Good Ratio] in Serum or Plasma [facility] ID Date Data Source [id number] 08/11/2019 01:09:42 AM EST [facility] Name Value Range Interpretation Description Data Sup porting Code Source(s) Document(s ) Magnesium 2.1 mg/dL 1.6-2.6 [facility] - Good [Mass/volume] [facility] in Serum or Hospital Plasma ID Date Data Source [id number] 08/11/2019 01:01:18 AM EST [facility] Name Value Range Interpretation Description Data Sup porting Code Source(s) Document(s ) Leukocytes 7.7 K/uL 4.8-10.6 [facility] - [#/volume] in Good Blood by [facility] Automated count Hospital Erythrocytes 4.93 4.70-6.0 [facility] - [#/volume] in M/uL 0 Good Blood by [facility] Automated count Hospital Hemoglobin 14.9 14.0-18. [facility] - [Mass/volume] in g/dL [address] [facility] Hematocrit 44.4 % 42.0-52. [facility] - [Volume 0 Good Fraction] of [facility] Blood by Hospital Automated count Erythrocyte mean 90.1 FL 81.0-94. [facility] - corpuscular 0 Good volume [Entitic [facility] volume] by Hospital Automated count Erythrocyte mean 30.2 PG 27.0-35. [facility] - corpuscular 0 Good hemoglobin [facility] [Entitic mass] Hospital by Automated count Erythrocyte mean 33.6 30.7-37. [facility] - corpuscular g/dL 3 Good hemoglobin [facility] [Mass/volume] by Automated count Erythrocyte 12.5 % 11.5-14. [facility] - distribution 0 Good width [Ratio] by [facility] Automated count Hospital Platelets 189 K/uL 130-400 [facility] - [#/volume] in Good Blood by [facility] Automated count [facility] Platelet mean 9.0 FL 9.2-11.8 Below low normal [facility] - volume [Entitic Good volume] in Blood [facility] by Automated Hospital count Nucleated 0.0 PER 0 [facility] - erythrocytes/100 100 WBC Good leukocytes [facility] [Ratio] in Blood Hospital Nucleated 0.00 0.0-0.01 [facility] - erythrocytes K/uL Good [#/volume] in [facility] Segmented 59 % 48.0-72. [facility] - neutrophils/100 0 Good leukocytes in [facility] Lymphocytes/100 29 % 18.0-40. [facility] - leukocytes in 0 [facility] Monocytes/100 7 % 2.0-12.0 [facility] - leukocytes in [facility] Eosinophils/100 5 % 0.0-7.0 [facility] - leukocytes in [facility] Basophils/100 1 % 0.0-3.0 [facility] - leukocytes in [facility] Immature 0 % 0-0.5 [facility] - granulocytes/100 Good leukocytes in [facility] by Hospital Automated count Segmented 4.6 K/UL 2.3-7.6 [facility] - neutrophils Good [#/volume] in [facility] Lymphocytes 2.2 K/UL 0.9-4.2 [facility] - [#/volume] in [facility] Monocytes 0.5 K/UL 0.1-1.7 [facility] - [#/volume] in [facility] Eosinophils 0.4 K/UL 0.0-1.0 [facility] - [#/volume] in [facility] Basophils 0.1 K/UL 0.0-0.4 [facility] - [#/volume] in [facility] Immature 0.0 K/UL 0.0-0.17 [facility] - granulocytes Good [#/volume] in [facility] by Hospital Automated count Differential [facility] - cell count Good method [facility] Procedure Social History Code Duration Value Status Description Data Source(s ) Alcohol intake 01/08/2020 Current completed Current [facility] 12:00:00 AM EDT non-drinker non-drinker of [facility] of alcohol alcohol (finding) [facility] (finding) Tobacco use and 01/08/2020 Never used completed Never used [facility] exposure 12:00:00 AM EDT [facility] Smoking 01/08/2020 Never smoker completed Never smoker [place] [facility] 12:00:00 AM EDT [employer] Alcohol intake 12/25/2019 Current completed Current [place] [facility] 12:00:00 AM EDT non-drinker non-drinker of [employer] alcohol (finding) [facility] [employer] (finding) Tobacco use and 12/25/2019 Never used completed Never used [facility] exposure 12:00:00 AM EDT [employer] Smoking 12/25/2019 Never smoker completed Never smoker [place] [facility] 12:00:00 AM EDT [employer] Alcohol intake 12/12/2019 Current completed Current [place] [facility] 12:00:00 AM EDT non-drinker non-drinker of [employer] alcohol (finding) [facility] [employer] (finding) Smoking 12/12/2019 Never smoker completed Never smoker [place] [facility] 12:00:00 AM EDT [employer] Alcohol intake 12/05/2019 Current completed Current [place] [facility] 12:00:00 AM EDT non-drinker non-drinker of [employer] alcohol (finding) [employer] (finding) Tobacco use and 12/05/2019 Never used completed Never used [facility] exposure 12:00:00 AM EDT [employer] Smoking 12/05/2019 Never smoker completed Never smoker [place] [facility] 12:00:00 AM EDT [employer] Alcohol intake 12/01/2019 Current completed Current [place] [facility] 12:00:00 AM EDT non-drinker non-drinker of [employer] alcohol (finding) [employer] (finding) Smoking 12/01/2019 Never smoker completed Never smoker [facility] [facility] 12:00:00 AM EDT [employer] Alcohol intake 11/14/2019 Current completed Current [place] [facility] 12:00:00 AM EDT non-drinker non-drinker of [employer] alcohol (finding) [employer] (finding) Smoking 11/14/2019 Never smoker completed Never smoker [facility] [facility] 12:00:00 AM EDT [employer] Alcohol intake 11/10/2019 Current completed Current [place] [facility] 12:00:00 AM EDT non-drinker non-drinker of [employer] alcohol alcohol (finding) [facility] [employer] (finding) Smoking 11/10/2019 Never smoker completed Never smoker [place] [facility] 12:00:00 AM EDT [employer] [facility] Alcohol intake 09/06/2019 Current completed Current [place] [facility] 12:00:00 AM EDT non-drinker non-drinker of [employer] of alcohol alcohol (finding) [facility] [employer] (finding) Smoking 09/06/2019 Never smoker completed Never smoker [place] [facility] 12:00:00 AM EDT [employer] [facility] Alcohol intake 08/16/2019 Current completed Current [place] [facility] 12:00:00 AM EST non-drinker non-drinker of [employer] alcohol (finding) [employer] (finding) Smoking 08/16/2019 Never smoker completed Never smoker [facility] [facility] 12:00:00 AM EST [employer] [facility] Alcohol intake 08/10/2019 Current completed Current [place] [facility] 12:00:00 AM EST non-drinker non-drinker of [employer] alcohol alcohol (finding) [employer] (finding) Smoking 08/10/2019 Never smoker completed Never smoker [place] [facility] 12:00:00 AM EST [employer] [facility] [employer] Alcohol intake 07/21/2019 Current completed Current [place] [facility] 12:00:00 AM EST non-drinker non-drinker of [employer] alcohol alcohol (finding) [employer] (finding) Smoking 07/21/2019 Never smoker completed Never smoker [place] [facility] 12:00:00 AM EST [employer] [facility] [employer] Smoking 07/29/2018 Never smoker completed Never smoker [place] [facility] 12:00:00 AM EST [employer] [facility] [employer] Smoking 07/19/2018 Never smoker completed Never smoker [place] [facility] 12:00:00 AM EST [employer] [facility] [employer] Smoking 07/11/2018 Never smoker completed Never smoker [place] [facility] 12:00:00 AM EST [employer] [facility] [employer] Vital Signs ID Date Data Source UNK Name Value Range Interpretation Code Description Data Source(s) Oxygen saturation 98 % 98 % [facility] in Arterial blood [employer] by Pulse [employer] [facility] [employer] Body mass index 48.95 kg/m2 48.95 kg/m2 [facility] (BMI) [Ratio] [employer] [facility] [employer] Body weight 136.533 kg 136.533 kg [facility] [employer] Body height 167 cm 167 cm [facility] Respiratory rate 12 /min 12 /min [facility] [employer] Body temperature 36.56 May 36.56 May [facility] [employer] Heart rate 102 /min 102 /min [employer] Diastolic blood 60 mm[Hg] 60 mm[Hg] [facility] pressure [employer] Systolic blood 100 mm[Hg] 100 mm[Hg] [place] [facility] pressure [employer] Diastolic blood 80 mm[Hg] 80 mm[Hg] [facility] pressure [employer] Systolic blood 122 mm[Hg] 122 mm[Hg] [place] [facility] pressure [employer] Respiratory rate 20 /min 20 /min [facility] [employer] Heart rate 70 /min 70 /min [employer] Diastolic blood 70 mm[Hg] 70 mm[Hg] [facility] pressure [employer] Systolic blood 124 mm[Hg] 124 mm[Hg] [place] pressure [employer] [facility] Respiratory rate 18 /min 18 /min [facility] [employer] Body temperature 36.56 May 36.56 May [facility] [employer] Heart rate 88 /min 88 /min [employer] Diastolic blood 86 mm[Hg] 86 mm[Hg] [facility] pressure [employer] Systolic blood 110 mm[Hg] 110 mm[Hg] [place] pressure [employer] Oxygen saturation 98 % 98 % [facility] in Arterial blood [employer] by [employer] [facility] [employer] Body mass index 47.98 kg/m2 47.98 kg/m2 [facility] (BMI) [Ratio] [employer] Body weight 133.811 kg 133.811 kg [facility] [employer] Body height 167 cm 167 cm [facility] [employer] Respiratory rate 12 /min 12 /min [facility] [employer] Body temperature 36.67 May 36.67 May [facility] [employer] Heart rate 100 /min 100 /min [facility] Diastolic blood 66 mm[Hg] 66 mm[Hg] [facility] pressure [facility] Systolic blood 102 mm[Hg] 102 mm[Hg] [place] pressure [employer] [facility] Respiratory rate 20 /min 20 /min [facility] [employer] [facility] Heart rate 70 /min 70 /min [facility] [employer] Diastolic blood 68 mm[Hg] 68 mm[Hg] [facility] pressure [facility] Systolic blood 120 mm[Hg] 120 mm[Hg] [place] [facility] pressure [employer] [facility] Respiratory rate 18 /min 18 /min [facility] [employer] [facility] Heart rate 68 /min 68 /min [facility] [employer] Diastolic blood 68 mm[Hg] 68 mm[Hg] [facility] pressure [employer] [facility] Systolic blood 112 mm[Hg] 112 mm[Hg] [place] [facility] pressure [employer] [facility] Respiratory rate 20 /min 20 /min [facility] [employer] [facility] Body temperature 36.56 May 36.56 May [facility] [employer] [facility] [employer] Heart rate 92 /min 92 /min [facility] [employer] Diastolic blood 70 mm[Hg] 70 mm[Hg] [facility] pressure [facility] Systolic blood 110 mm[Hg] 110 mm[Hg] [place] pressure [employer] [facility] Respiratory rate 20 /min 20 /min [facility] [employer] [facility] Heart rate 68 /min 68 /min [facility] Diastolic blood 72 mm[Hg] 72 mm[Hg] [facility] pressure [employer] [facility] Systolic blood 112 mm[Hg] 112 mm[Hg] [place] [facility] pressure [facility] Respiratory rate 20 /min 20 /min [facility] [employer] [facility] Heart rate 82 /min 82 /min [facility] [employer] Diastolic blood 66 mm[Hg] 66 mm[Hg] [facility] pressure [facility] Systolic blood 110 mm[Hg] 110 mm[Hg] [place] [facility] pressure [facility] Respiratory rate 14 /min 14 /min [facility] [employer] [facility] Body temperature 36.89 May 36.89 May [facility] [employer] [facility] Heart rate 72 /min 72 /min [facility] Diastolic blood 74 mm[Hg] 74 mm[Hg] [facility] pressure [employer] [facility] Systolic blood 128 mm[Hg] 128 mm[Hg] [place] pressure [employer] Respiratory rate 20 /min 20 /min [facility] [employer] [facility] Heart rate 68 /min 68 /min [facility] Diastolic blood 64 mm[Hg] 64 mm[Hg] [facility] pressure [employer] [facility] Systolic blood 108 mm[Hg] 108 mm[Hg] [place] pressure [employer] [facility] Respiratory rate 18 /min 18 /min [facility] [employer] [facility] Heart rate 80 /min 80 /min [facility] [employer] Diastolic blood 70 mm[Hg] 70 mm[Hg] [facility] pressure [employer] [facility] Systolic blood 98 mm[Hg] 98 mm[Hg] [place] pressure [employer] [facility] Respiratory rate 20 /min 20 /min [facility] [employer] [facility] Body temperature 36.56 May 36.56 May [facility] [employer] [facility] Heart rate 78 /min 78 /min [employer] [facility] Diastolic blood 60 mm[Hg] 60 mm[Hg] [facility] pressure [employer] [facility] Systolic blood 110 mm[Hg] 110 mm[Hg] [place] pressure [employer] Body mass index 48.95 kg/m2 48.95 kg/m2 [facility] (BMI) [Ratio] [employer] [facility] Body weight 136.533 kg 136.533 kg [facility] [employer] Respiratory rate 18 /min 18 /min [facility] [employer] [facility] Body temperature 36.56 May 36.56 May [facility] [employer] [facility] Heart rate 80 /min 80 /min [facility] [employer] Diastolic blood 70 mm[Hg] 70 mm[Hg] [facility] pressure [employer] [facility] Systolic blood 128 mm[Hg] 128 mm[Hg] [place] pressure [employer] Oxygen saturation 98 % 98 % [facility] in Arterial blood [employer] [facility] [employer] [facility] [employer] Body mass index 48.95 kg/m2 48.95 kg/m2 [facility] (BMI) [Ratio] [employer] Body weight 136.533 kg 136.533 kg [facility] [employer] Body height 167 cm 167 cm [employer] Respiratory rate 14 /min 14 /min [facility] [employer] Body temperature 36.44 May 36.44 May [facility] [employer] Heart rate 98 /min 98 /min [employer] Diastolic blood 60 mm[Hg] 60 mm[Hg] [facility] pressure [employer] Systolic blood 110 mm[Hg] 110 mm[Hg] [place] pressure [employer] Oxygen saturation 96 % 96 % [facility] in Arterial blood [facility] by Pulse oximetry [facility] [employer] Respiratory rate 18 /min 18 /min [facility] [employer] Body temperature 36.72 May 36.72 May [facility] [employer] Heart rate 80 /min 80 /min [employer] Diastolic blood 88 mm[Hg] 88 mm[Hg] [facility] pressure [employer] Systolic blood 128 mm[Hg] 128 mm[Hg] [place] pressure [employer] Body mass index 48.97 kg/m2 48.97 kg/m2 [facility] (BMI) [Ratio] [employer] Body weight 136.578 kg 136.578 kg [facility] [employer] Body height 167 cm 167 cm [employer] Oxygen saturation 98 % 98 % [facility] in Arterial blood [facility] by Pulse [facility] [employer] Body mass index 48.30 kg/m2 48.30 kg/m2 [facility] (BMI) [Ratio] [employer] Body weight 134.718 kg 134.718 kg [facility] [employer] Body height 167 cm 167 cm [employer] Respiratory rate 14 /min 14 /min [facility] [employer] Body temperature 37.33 May 37.33 May [facility] [employer] Heart rate 100 /min 100 /min [facility] [employer] Diastolic blood 68 mm[Hg] 68 mm[Hg] [facility] pressure [employer] Systolic blood 118 mm[Hg] 118 mm[Hg] [place] pressure [employer] Oxygen saturation 98 % 98 % [facility] in Arterial blood [employer] by Pulse [employer] [facility] [employer] Body mass index 47.49 kg/m2 47.49 kg/m2 [facility] (BMI) [Ratio] [employer] Body weight 132.45 kg 132.45 kg [facility] [employer] Body height 167 cm 167 cm [employer] Respiratory rate 12 /min 12 /min [facility] [employer] Body temperature 36.44 May 36.44 May [facility] Heart rate 88 /min 88 /min [employer] Diastolic blood 70 mm[Hg] 70 mm[Hg] [facility] pressure [employer] Systolic blood 102 mm[Hg] 102 mm[Hg] [place] pressure [employer] Oxygen saturation 92 % 92 % [facility] in Arterial blood [facility] [employer] by Pulse oximetry [facility] [employer] Body mass index 45.86 kg/m2 45.86 kg/m2 [facility] (BMI) [Ratio] [employer] [facility] Body weight 133.811 kg 133.811 kg [employer] [facility] Body height 170.8 cm 170.8 cm [employer] Respiratory rate 12 /min 12 /min [facility] [employer] Body temperature 36.67 May 36.67 May [facility] [employer] Heart rate 88 /min 88 /min [employer] Diastolic blood 80 mm[Hg] 80 mm[Hg] [facility] pressure [employer] Systolic blood 120 mm[Hg] 120 mm[Hg] [place] pressure [employer] Oxygen saturation 95 % 95 % [facility] in Arterial blood [facility] by Pulse o[facility]etry [facility] Respiratory rate 18 /min 18 /min [facility] [employer] Body temperature 36.44 May 36.44 May [facility] [employer] [facility] Heart rate 100 /min 100 /min [employer] Diastolic blood 80 mm[Hg] 80 mm[Hg] [facility] pressure [employer] Systolic blood 123 mm[Hg] 123 mm[Hg] [place] pressure [employer] [facility] Body mass index 46.99 kg/m2 46.99 kg/m2 [facility] (BMI) [Ratio] [employer] Body weight 136.079 kg 136.079 kg [employer] Body height 170.2 cm 170.2 cm [employer] Oxygen saturation 96 % 96 % [facility] in Arterial blood [employer] [facility] [employer] [facility] [employer] Body mass index 45.55 kg/m2 45.55 kg/m2 [facility] (BMI) [Ratio] [employer] Body weight 132.904 kg 132.904 kg [facility] [employer] Body height 170.8 cm 170.8 cm [employer] Respiratory rate 14 /min 14 /min [facility] [employer] Body temperature 35.89 May 35.89 May [facility] [employer] Heart rate 96 /min 96 /min [employer] Diastolic blood 78 mm[Hg] 78 mm[Hg] [facility] pressure [employer] Systolic blood 116 mm[Hg] 116 mm[Hg] [place] pressure [employer] Oxygen saturation 92 % 92 % [facility] in Arterial blood [employer] [facility] [employer] [facility] [employer] Respiratory rate 15 /min 15 /min [facility] [employer] Heart rate 96 /min 96 /min [employer] Diastolic blood 86 mm[Hg] 86 mm[Hg] [facility] pressure [employer] Systolic blood 121 mm[Hg] 121 mm[Hg] [place] pressure [employer] Body mass index 40.18 kg/m2 40.18 kg/m2 [facility] (BMI) [Ratio] [employer] Body weight 127.007 kg 127.007 kg [facility] [employer] Body height 177.8 cm 177.8 cm [employer] Body temperature 36.72 May 36.72 May [facility] [employer] [facility] [employer] Body temperature 36.33 May 36.33 May [facility] [employer] Oxygen saturation 96 % 96 % [facility] in Arterial blood [employer] [facility] [employer] [facility] [employer] Respiratory rate 21 /min 21 /min [facility] [employer] [facility] Heart rate 85 /min 85 /min [employer] Diastolic blood 88 mm[Hg] 88 mm[Hg] [facility] pressure [employer] Systolic blood 155 mm[Hg] 155 mm[Hg] [place] pressure [employer] [facility] Body mass index 40.18 kg/m2 40.18 kg/m2 [facility] (BMI) [Ratio] [employer] Body weight 127.007 kg 127.007 kg [facility] [employer] [facility] Body height 177.8 cm 177.8 cm [facility] [employer] [facility] Oxygen saturation 98 % 98 % [facility] in Arterial blood [facility] [employer] by Pulse oximetry [facility] [employer] Body mass index 44.66 kg/m2 44.66 kg/m2 [facility] (BMI) [Ratio] [employer] [facility] Body weight 128.368 kg 128.368 kg [facility] [employer] [facility] Body height 169.5 cm 169.5 cm [facility] Respiratory rate 12 /min 12 /min [facility] [employer] Body temperature 36.28 May 36.28 May [facility] [employer] [facility] Heart rate 68 /min 68 /min [facility] [employer] [facility] Diastolic blood 80 mm[Hg] 80 mm[Hg] [facility] pressure [employer] [facility] Systolic blood 122 mm[Hg] 122 mm[Hg] [place] pressure [employer] [facility] Oxygen saturation 96 % 96 % [facility] in Arterial blood [employer] by Pulse [employer] [facility] [employer] Diastolic blood 53 mm[Hg] 53 mm[Hg] [facility] pressure [employer] Systolic blood 107 mm[Hg] 107 mm[Hg] Aiea s pressure [employer] [facility] Respiratory rate 17 /min 17 /min [facility] [employer] Body temperature 37.11 May 37.11 May [facility] Heart rate 58 /min 58 /min [facility] [employer] Body mass index 38.06 kg/m2 38.06 kg/m2 [facility] (BMI) [Ratio] [place] Body weight 110.224 kg 110.224 kg [facility] [employer] [facility] Body height 170.2 cm 170.2 cm [facility] [employer] Oxygen saturation 98 % 98 % [facility] in Arterial blood [employer] Body mass index 37.71 kg/m2 37.71 kg/m2 [facility] (BMI) [Ratio] [place] [facility] Body weight 108.41 kg 108.41 kg [facility] Body height 169.5 cm 169.5 cm [facility] [employer] [facility] Respiratory rate 16 /min 16 /min [facility] Body temperature 36.44 May 36.44 May [facility] Heart rate 74 /min 74 /min [facility] [employer] [facility] Diastolic blood 70 mm[Hg] 70 mm[Hg] [facility] pressure [facility] Systolic blood 94 mm[Hg] 94 mm[Hg] [place] s pressure [facility] Oxygen saturation 98 % 98 % [facility] in Arterial blood [facility] [employer] Respiratory rate 17 /min 17 /min [facility] Body temperature 36.33 May 36.33 May [facility] Heart rate 87 /min 87 /min [facility] [employer] [facility] Diastolic blood 75 mm[Hg] 75 mm[Hg] [facility] pressure [facility] Systolic blood 121 mm[Hg] 121 mm[Hg] [place] s pressure [facility] Body mass index 39.94 kg/m2 39.94 kg/m2 [facility] (BMI) [Ratio] [employer] Body weight 108.863 kg 108.863 kg [facility] Body height 165.1 cm 165.1 cm [facility] Patient Treatment Plan of Care Planned Activity Planned Date Details Description Data Source (s) Propranolol Hydrochloride 01/08/2020 [facility] 10 MG Oral Tablet 12:00:00 AM [employer] Clonazepam 0.5 MG Oral 12/25/2019 [facility] Tablet 12:00:00 AM [employer] Ibuprofen 200 MG Oral 12/22/2019 [facility] Tablet 12:00:00 AM [employer] olanzapine 5 MG Oral Tablet 12/09/2019 [facility] 09:00:00 AM [employer] Olmesartan medoxomil 20 MG 12/09/2019 [...] 12:00:00 AM [facility] [place] Carbonate 300 MG 11/30/2019 [facility] [...] Bela Release Oral Tablet 12:00:00 AM EDT [employer] [facility] [employer] Bisacodyl 5 MG Delayed 10/31/2019 [facility] Release Oral Tablet 01:50:17 PM EDT [employer] [facility] [employer] Acetaminophen 325 MG Oral 10/29/2019 [facility] Tablet 02:44:40 PM EDT [facility] sodium chloride (NS) flush 10/29/2019 [facility] 5-40 mL 11:01:53 AM EDT [facility] 24 HR Bupropion 10/17/2019 [facility] Hydrochloride 150 MG 12:00:00 AM EDT [employer] [facility] Extended Release Oral Tablet 24 HR Bupropion 10/17/2019 [facility] Hydrochloride 300 MG 12:00:00 AM EDT [employer] [facility] Extended Release Oral Tablet Vraylar 3 mg capsule 09/03/2019 [facility] 12:00:00 AM [facility] Amitriptyline Hydrochloride 08/20/2019 [facility] 150 MG Oral Tablet 12:00:00 AM EST [facility] [place] Carbonate 150 MG 08/16/2019 [facility] Oral Capsule 12:00:00 AM EST [facility] Prednisone 50 MG Oral 08/16/2019 [facility] Tablet 12:00:00 AM [facility] Cyclobenzaprine 07/21/2019 [facility] hydrochloride 10 MG Oral 12:00:00 AM [facility] Tablet Acetaminophen 325 MG / 07/21/2019 [facility] Oxycodone Hydrochloride 5 12:00:00 AM EST [facility] MG Oral Tablet VRAYLAR 6 mg capsule 07/07/2019 [facility] 12:00:00 AM EST [facility] valacyclovir 1000 MG Oral 07/17/2018 [facility] Tablet 12:00:00 AM [facility] Risperidone 1 MG Oral 12/07/2017 [facility] Tablet 12:00:00 AM ED [facility] Alprazolam 1 MG Oral Tablet 12/07/2017 [facility] 12:00:00 AM ED [facility] lamotrigine 25 MG Oral 12/07/2017 [facility] Tablet 12:00:00 AM [facility] Clonazepam 2 MG Oral Tablet [facility] cariprazine (Vraylar) 6 mg B on [facility] 24 HR Bupropion Bon [facility] Hydrochloride 300 MG [facility] Extended Release Oral Tablet fluoxetine HCl (PROZAC PO) B on [facility] ziprasidone 80 MG Oral [facility] valacyclovir 500 MG Oral [facility] Tablet [Valtrex] [facility]
[2020-03-26 12:30] VITALS: BMI 47.4
--- OUTSIDE RECORDS SUMMARY | 2020-04-01 07:17 | XMS ---
:1970 Author Organization [facility] Care Team Providers Name Role [...] is protected by Article 27-F of the [place] Public Health law. If you continue you may haveaccess to information: Regarding HIV / AIDS; Provided by facilities licensed or operated by the [facility] Office of Mental Health; or Provided by the [facility] Office for People With Developmental Disabilities. If such information is present, then the following [facility] mandated warning applies: This information [...] S ecours Bela PM EDT - 01/12/2020 [facility] 10:23:35 AM EDT Patient discharged. Attender: MARIYA CATHERINE 01/01/2020 12:00:00 AM Bon [facility] Attender: MAURICIO 12/30/2019 12:00:00 AM [facility] Attender: MARIYA CATHERINE 12/29/2019 12:00:00 AM [facility] 12/25/2019 04:00:00 PM [facility] 06:48:40 [facility] PM EDT Patient discharged. OL 12/25/2019 12:00:00 [facility] 11:59:00 PM EDT Attender: MARIYA 12/25/2019 12:00:00 AM [facility] Attender: SUSI LONGO 12/25/2019 12:00:00 AM [facility] Attender: MAURICIO 12/24/2019 12:00:00 AM [facility] Attender: MARIYA 12/22/2019 12:00:00 AM [facility] Attender: SUSI LONGO 12/22/2019 12:00:00 AM [facility] Attender: MAURICIO 12/19/2019 12:00:00 AM [facility] Attender: MARIYA 12/18/2019 12:00:00 AM [facility] Attender: GLADIS FUNEZ 12/18/2019 12:00:00 AM [facility] Attender: SUSI LONGO 12/17/2019 12:00:00 AM [facility] Attender: MAURICIO 12/16/2019 12:00:00 AM [facility]ender: MARIYA 12/15/2019 12:00:00 AM [facility] Attender: XANDER COLBERT 12/13/2019 12:00:00 AM [facility] Outpatient 12/12/2019 12:00:00 PM Francisco Javier n [facility] EDT - 12/12/2019 [facility] [employer] 01:20:23 PM EDT Patient discharged. Attender: ROSSI 12/08/2019 05:55:36 [facility] - 01/02/2020 [facility] 12:00:00 AM EDT System In c Inpatient Admitter: RITIKA 12/05/2019 12:00:00 [facility]T - 12/08/2019 [facility] 03:44:00 PM EDT General Weakness Patient discharged. Outpatient 12/05/2019 12:00:00 AM EDT [facility] Outpatient 12/01/2019 03:45:00 PM EDT - [facility] 12/01/2019 05:01:16 PM EDT Inc Patient discharged. Outpatient 11/14/2019 01:00:00 PM EDT - [facility] 11/18/2019 11:56:43 AM EDT System Inc Patient discharged. Outpatient 11/10/2019 09:00:00 AM EDT - [facility] 11/10/2019 04:44:05 PM EDT System Inc Patient discharged. Inpatient Admitter: RITIKA CANAS 10/29/2019 12:00:00 AM let hargic [facility] EDT - 11/03/2019 [facility] 04:02:00 PM EDT lethargic Patient discharged. Outpatient 09/15/2019 08:22:58 AM EDT [facility] - 09/15/2019 11:59:00 PM Hospital EDT Outpatient 09/10/2019 04:00:00 PM EDT [facility] Outpatient 09/04/2019 03:15:00 PM EDT [facility] Outpatient 08/19/2019 07:31:00 AM EST [facility] ([facility]) Outpatient 08/18/2019 06:35:00 AM EST [facility] ([facility]) Outpatient 08/17/2019 07:16:00 AM EST [facility]GEN ([facility]) Emergency 08/16/2019 12:00:00 AM EST Shortness of Breath [facility] - 08/16/2019 10:45:00 PM Hospital EST Shortness of Breath Patient discharged. Outpatient 08/11/2019 12:05:00 AM EST [facility] Emergency 08/10/2019 12:00:00 AM EST - Chest P ain [facility] 08/11/2019 01:42:00 AM EST Hospital Chest Pain Patient discharged. Outpatient 07/21/2019 04:15:00 PM EST - [facility] [employer] [facility] 07/22/2019 10:51:43 AM EST System Inc Patient discharged. Immunizations Vaccine Date Status Description Data Source(s) New in 2012. 09/04/2019 completed Influenza Vaccine 09/04/2019 [facility] 12:00:00 AM EDT (Quad) [facility] Medications Medication Brand Start Product Dose Route Administrative Pharmacy [facility] Indications Reaction Description Data Name Date Form Instructions Instructions Source(s) Propranolol propra 01/07/ 10 mg Oral active essential T stephanie [...] Tablet tablet 5 mg EDT dose (after [facility] OLANZapine [facility] (ZyPREXA) modification) S ystem tablet 5 mg on Tue Inc 12/09/19 at 0900, Until Discontinued Medication administered onsite Olmesartan olmesartan 12/09/2019 20 Oral completed h ypertension Take 1 Tab by Bon medoxomil (BENICAR) 12:00:00 AM mg paul th daily [facility] 20 MG Oral 20 mg EDT for 30 days. Bela Tablet tablet Indications: [facility] olmesartan high blood Sys tem (BENICAR) pressure Inc 20 mg tablet hypertension Losartan losartan 12/09/2019 50 Oral active hypertension Take 1 Tab by Bon Potassium (COZAAR) 12:00:00 AM mg mout h daily [facility] 50 MG Oral 50 mg EDT for 30 days. Bela Tablet tablet Indications: [facility] losartan high blood Syste m (COZAAR) [...] doses, Ch arity clonazePAM mg First dose [facility] (KlonoPIN) (after last Sy stem tablet 0.5 modification) Inc mg on 12/07/19 at 1600, Last dose on Denise 12/11/19 at 0900 Medication administered onsite olanzapine OLANZapine 12/07/2019 2.5 Oral aborted 2.5 mg, Oral, Bon 2.5 MG Oral (ZyPREXA) 02:00:00 PM mg D AILY, [facility] Tablet tablet 2.5 EDT dose on Sun Bela OLANZapine mg 12/07/19 at [facility] (ZyPREXA) 1400, Until Sys tem tablet 2.5 Discontinued I nc mg Medication administered onsite [place] lithium 12/07/2019 300 Oral active 300 mg , Oral, Bon Carbonate carbonate SR 02:00:00 PM mg 2 TIMES DAILY, [facility] 300 MG (LITHOBID) EDT First dose o n Bela Extended tablet 300 Sun 0 at [facility] Release Oral mg 1400, Until System Tablet Discontinued Inc lithium carbonate SR (LITHOBID) tablet 300 mg Medication administered onsite Losartan losartan 12/07/2019 50 Oral active 50 m g, Oral, Bon Potassium 50 (COZAAR) 01:00:00 PM mg D AILY, [facility] MG Oral tablet 50 EDT dose on Sun Bela Tablet mg 12/07/19 at [facility] losartan 1300, Until Syst em (COZAAR) Discontinued Inc tablet 50 mg Medication administered onsite furosemide 09492-804-58 12/07/2019 20 IntraVENous complete d 20 mg, [...] 12/13/19 at 0900 Medication administered onsite furosemide 81133-809-39 12/06/2019 20 IntraVENous complete d edema 20 [...] il mg Discontinued Medication administered onsite 0.9% 3477-8434-29 12/05/2019 100 IntraVENous aborted 100 mL/hr, at [...] 1 dose, Ch arity sodium 12/05/19 at a lth chloride 1121, at 100 Sys tem (MBP/ADV) 50 mL/hr Inc mL MBP Medication administered onsite Risperidone 2 risperiDONE 12/04/2019 2 mg Oral aborted Share d Take 1 Bon MG Oral (RisperDAL) 2 12:00:00 AM psychotic Tab by [facility] Tablet mg tablet EDT disorder mouth Jagruti rity risperiDONE (HCC) daily. Healt h (RisperDAL) 2 System mg tablet Inc Shared psychotic disorder (HCC) [place] lithium 11/30/2019 aborted Bon Carbonate 300 carbonate [...] (DULCOLAX) 5 Inc mg EC tablet cariprazine [id number] 11/01/2019 6 mg Oral active 6 m g, Oral, Bon (VRAYLAR) 09:00:00 PM EVERY Se cours capsule 6 mg EDT BEDTIME, Jagruti renner (Patient First dose on He alth Supplied) 11/01/19 at S ystem 2100, Until Inc Discontinued Medication administered onsite Hydrocortisone hydrocortisone 11/01/2019 Topical active Topical, 2 Bon 0.025 MG/MG (HYTONE) 2.5 % 06:00:00 PM TIMES DAILY, [facility] Topical Ointment ointment EDT Firs t dose on [facility] hydrocortisone 11/01/19 at [facility] (HYTONE) 2.5 % 1800, Unti l System ointment Discontinued Inc Medication administered onsite Docusate docusate 10/31/2019 200 Oral active 200 mg, Oral, Bon Sodium 100 sodium 02:00:00 PM mg DAILY , First [facility] MG Oral (COLACE) EDT dose on Sun C harity Capsule capsule 200 10/31/19 at [facility] docusate mg 1400, Until Syst em [...] haloperidoL tablet 5 mg EDT ONCE, 1 [facility] (HALDOL) dose, [facility] tablet 5 mg Denise System 10/30/19 [facility] at 2100 Medication administered onsite amitriptyline 10/30/2019 150 mg Oral active 1 50 mg, Oral, Bon (ELAVIL) tablet 09:00:00 PM EV AN BEDTIME, [facility] 150 mg EDT First dose on [facility] ity Denise 10/30/19 at [facility] 2100, Until System I nc Discontinued Medication administered onsite Haloperidol 2 haloperidoL 10/30/2019 2 mg Oral aborted 2 mg, Oral, Bon MG Oral (HALDOL) 08:01:20 PM EVERY 6 [facility] Tablet tablet 2 mg EDT HOURS Ch arity haloperidoL NEEDED, Healt h (HALDOL) Starting Denise Sys tem tablet 2 mg 10/30/19 at [facility] 2000, Until Sun10/31/19 at 2043, Psychosis, Agitation Medication administered onsite [place] lithium 10/30/2019 300 Oral active 300 mg , Oral, Bon Carbonate carbonate 12:00:00 PM mg 2 T IMES DAILY, [facility] 300 MG Oral tablet 300 EDT First d ose on Bela Tablet mg Denise 10/30/19 at [facility] lithium 1200, Until Syste m carbonate Discontinued In c tablet 300 mg Medication administered onsite Clonazepam 1 clonazePAM 10/30/2019 1 mg Oral active 1 mg, Oral, 2 Bon MG Oral (KlonoPIN) 12:00:00 PM TIME S DAILY, [facility] Tablet tablet 1 mg EDT First dose on Bela clonazePAM Denise 10/30/19 at [facility] (KlonoPIN) 1200, Until Sy stem tablet 1 mg Discontinued [facility] Medication administered onsite 0.9% 9827-5908-06 10/29/2019 100 IntraVENous aborted 100 mL/hr, at Bon sodium 02:55:00 PM mL/h 100 mL/hr, [facility] chloride EDT IntraVENous, Jagruti rity infusion CONTINUOUS, Starting Wed System 10/29/19 at [facility] 1455, Until 11/01/19 at 1446 Medication administered onsite 0.4 ML enoxaparin 10/29/2019 40 SubCUTAneous active 40 mg, Bon Enoxaparin (LOVENOX) 02:55:00 PM mg Gallardo bCUTAneous, [facility] sodium 100 injection 40 EDT EVERY 24 Bela MG/ML mg HOURS, First [facility] Prefilled dose on Sun Sys tem Syringe 10/29/19 at [facility] enoxaparin 1455, Until (LOVENOX) Discontinued injection 40 mg Medication administered onsite Acetaminophen acetaminophen 10/29/2019 650 Oral active 650 mg, Oral, Bon 325 MG Oral (TYLENOL) 02:44:40 PM mg E VERY 4 HOURS [facility] Tablet tablet 650 mg EDT NEEDED , Bela acetaminophen Starting We [facility] (TYLENOL) [facility] mg 1444, Until [facility] Discontinued, Mild Pain, Fever Medication administered onsite sodium 51186-379-21 10/29/2019 mL IntraVENous active 5-40 mL, Bon chloride 02:00:00 PM IntraVENo us, [facility] (NS) flush EDT EVERY 8 Charit y 5-40 mL HOURS, First dose on Wed System 10/29/19 at [facility] 1400, Until Discontinued Medication administered onsite sodium 92332-758-35 10/29/2019 mL IntraVENous active 5-40 mL, Bon chloride 11:01:53 AM IntraVENo us, [facility] (NS) flush EDT NEEDED, Jagruti rity 5-40 mL Starting Sun10/29/19 at System 1101, Until Inc Discontinued, Line [...] XL) 150 mg tablet Vraylar 3 mg 30761-582-89 09/03/2019 6 Oral aborted depre ssion Take [...] EST NOW, 1 Bela chewable tablet dose, [facility] 162 mg 08/16/19 System at 2103 Inc Medication administered onsite famotidine 08/16/2019 20 IntraVENous aborted 20 mg, Bon (PF) (PEPCID) 09:02:00 PM mg Intr aVENous, [facility] 20 mg in 0.9% EST EVERY 12 Ch arity sodium HOURS, First Healt h chloride 10 dose on [facility] ystem mL injection 08/16/19 at I nc 2102, Until Discontinued Medication administered onsite methylPREDNISolone [id number] 08/16/2019 125 IntraVENous comple hyun 125 mg, Bon (PF) (Solu-MEDROL) 09:02:00 PM mg IntraVENous, [facility] injection 125 mg EST NOW, 1 d ose, Bela 08/16/19 Health at 2102 System Inc Medication administered onsite 0.9% [id number] 08/16/2019 1000 IntraVENous completed 1,000 mL, at [...] mg tablet for 3 System days. Inc [place] lithium 08/16/2019 2 Oral active Take 2 [...] Health tablet 162 mg Sun System 08/10/19 [facility] at 2352 Medication administered onsite Cyclobenzaprine cyclobenzaprine [...] back pain due to trauma VRAYLAR 6 43837-647-48 07/07/2019 6 mg Oral aborted Bipolar Take [...] DAY FOR 10 DAYS Herpes zoster cephalicus cariprazine [id number] 6 mg Oral aborted Take 6 m g [facility] (Vraylar) 6 mg by mouth C harity capsule daily. [facility] ziprasidone 80 MG ziprasidone 80 mg Oral aborted Take 80 mg [facility] Oral Capsule (GEODON) 80 mg by mouth Bela ziprasidone capsule two (2) He alth (GEODON) 80 mg times Syst em Inc capsule daily (with meals). fluoxetine HCl 60 mg Oral aborted Take 6 0 mg [facility] (PROZAC PO) by mouth Moira ity daily. [facility] Clonazepam 2 MG clonazePAM 1 mg Oral aborted Take 1 mg [facility] Oral Tablet (KLONOPIN) 2 mg by mouth Bela clonazePAM tablet two (2) Heal th (KLONOPIN) 2 mg times Sys tem Inc tablet daily as needed. 24 HR Bupropion buPROPion XL 300 mg Oral aborted Take 300 [facility] Hydrochloride 300 (WELLBUTRIN XL) mg by Bela MG Extended 300 mg XL mouth He alth Release Oral tablet every Syst em Inc Tablet buPROPion morning. XL (WELLBUTRIN XL) 300 mg XL tablet Insurance Providers Payer name Policy type / Policy ID Covered Covered Policy Plan Coverage type libertarian ID libertarian's [place] Inform ation relationship to boland [facility] [id number] SP [id number] [facility] [id number] [facility] HEALTH PLAN [id number] [facility] HMO [id number] [employer] HE[employer] PLAN Commerical [id number] [facility] [id number] PLAN [facility] [id number] [facility] [id number] PLAN [facility] [id number] HEALTH PLAN POLO [id number] POLO [id number] [id number] [facility] PPO [id number] [place] 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 [id number] COMPENSATION [facility] HEALTH PLAN O [id number] 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 [id number] COMPENSATION [facility] [id number] GENERIC [id number] [facility] [id number] PLAN [facility] GENERIC Commerical [id number] [facility] PPO [id number] PLAN [facility] [id number] PLAN 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 [id number] COMPENSATION [facility] [id number] [facility] HEALTH PLAN PPO [id number] [facility] Problems, Conditions, and Diagnoses Code Display Name Description Problem Type Effective Data Dates Source(s) T88.7XXA Rgr-dhok-kxeajzt Kpt-qyht-gomgbxj [id number] 12/05/2019 Francisco Javier n [facility] adverse reaction to adverse reaction to 12:00:0 0 AM Bela medication medication [facility] [employer] T50.905A Adverse drug Adverse drug [id number] 12/05/2019 [place] s reaction, initial reaction, initial 12:00:00 AM [facility] encounter encounter [facility] [employer] G93.40 Encephalopathy acute Encephalopathy acute [id number] 12/04 [facility] 12:00:00 AM Bela [employer] F31.4 Bipolar disorder with Bipolar disorder [id number] 10/29/19 20 [facility] severe depression with severe 12:00:00 AM [facility] depression [employer] E55.9 Vitamin D deficiency Vitamin D deficiency [id number] 09/03 [facility] 12:00:00 AM Bela [employer] F41.8 Mixed anxiety and Mixed anxiety and [id number] 09/04/2019 [facility] depressive disorder depressive disorder 12:00:0 0 AM [facility] E66.01 Morbid obesity Morbid obesity [id number] 07/21/2019 Bon Se cours 12:00:00 AM [facility] [employer] [facility] Z98.84 Status post gastric Status post gastric [id number] [facility] bypass for obesity bypass for obesity 12:00:[address] [facility] F32.9 Depressive disorder Depressive disorder [id number] 020 [facility] 12:00:00 AM [facility] [employer] [facility] F31.9 Bipolar disorder Bipolar disorder [id number] 07/21/2019 Francisco Javier n [facility] 12:00:[address] [facility] F41.9 Anxiety Anxiety [id number] 07/21/2019 [facility] 12:00:00 AM [facility] [employer] [facility] G25.2 Other specified forms Other specified Diagnosis 0 [facility] of tremor forms of tremor 03:17:29 PM [facility] F31.4 Bipolar disorder, Bipolar disorder, Diagnosis 12/25/2019 [facility] - Good current episode current episode 04:40:00 PM [facility] depressed, severe, depressed, severe, EDT Hospital without psychotic without psychotic features features F41.9 Anxiety disorder, Anxiety disorder, Diagnosis 12/25/2019 [facility] unspecified unspecified 04:04:24 PM [facility] R25.1 Tremor, unspecified Tremor, unspecified Diagnosis [facility] 04:04:24 PM [facility] Z98.84 Bariatric surgery Bariatric surgery Diagnosis 12/25/2019 [facility] status status 04:04:24 PM [facility] T88.7XXA Unspecified adverse Unspecified adverse Diagnosis [facility] - Good effect of drug or effect of drug or 11:10:37 AM Protestant medicament, initial medicament, initial EDT Hospital encounter encounter G93.40 Encephalopathy, Encephalopathy, Diagnosis 12/05/2019 [facility] - Good unspecified unspecified 11:10:37 AM [facility] Hospital R41.82 Altered mental Altered mental Diagnosis 12/05/2019 [facility] - Good status, unspecified status, unspecified 11:10:3 7 AM [facility] F51.04 Psychophysiologic Psychophysiologic Diagnosis 11/14/2019 [facility] insomnia insomnia 01:22:52 PM [facility] F32.2 Major depressive Major depressive Diagnosis 09/15/2019 [facility] - Good disorder, single disorder, single 08:22:58 AM S amaritan episode, severe episode, severe EDT Hosp ital without psychotic without psychotic features features F41.8 Other specified Other specified Diagnosis 09/04/2019 [facility] anxiety disorders anxiety disorders 03:49:01 PM [facility] F32.2 Major depressive Major depressive Diagnosis 09/04/2019 Francisco Javier n [facility] disorder, single disorder, single 03:49:01 PM C harity episode, severe episode, severe EDT Heal th without psychotic without psychotic System Inc features features Z23 Encounter for Encounter for Diagnosis 09/04/2019 [facility] immunization immunization 03:49:01 PM [facility] T78.40XA Allergy, unspecified, Allergy, Diagnosis 08/16/2019 [facility] initial encounter unspecified, initial 08:39:16 PM [facility] R06.00 Dyspnea, unspecified Dyspnea, unspecified Diagnosis 08/10 [facility] 11:27:27 PM [facility] F31.75 Bipolar disorder, in Bipolar disorder, in Diagnosis 07/21 [facility] partial remission, partial remission, 04:40:28 PM [facility] most recent episode most recent episode [facility] Surgeries/Procedures Procedure Description Date Indications Data Source(s) HC HC Routine 12/25/2019 Bipolar 12/25/2019 Bipolar Francisco Javier n LITHIUM LITHIUM 4:41 PM EDT disorder 04:41:00 PM disorde r [facility] with severe EDT with severe [facility] depression depression He alth (HCC) ([facility]) System Inc Bipolar disorder with severe depression ([facility]) GLUCOSE, POC GLUCOSE, POC Routine 12/08/2019 12/08/2019 Bon 11:35 AM 11:35:00 [facility]OLIC Routine 12/07/2019 12/07/2019 Bon PANEL, BASIC PANEL, BASIC 4:40 AM EDT 04:40:00 A M [facility] EEG 12-26 HR EEG 12-26 HR Routine 12/06/2019 12/06/2019 Bon W/VIDEO W/VIDEO 10:25 AM 10:25:08 AM [facility] LITHIUM HC LITHIUM Routine 12/06/2019 12/06/2019 Bon 4:25 AM EDT 04:25:00 [facility] LACTIC ACID HC LACTIC ACID STAT 12/05/2019 020 Bon 7:20 PM EDT 07:20:00 [facility] HC AMMONIA HC AMMONIA STAT 12/05/2019 12/05/2019 Bon 7:20 PM EDT 07:20:00 PM [facility] BRAIN WO MRI BRAIN WO STAT 12/05/2019 12/05/2019 Bon CONT CONT 4:50 PM EDT 04:50:12 PM [facility] EEG 12-26 HR EEG 12-26 HR STAT 12/05/2019 12/05/2019 Bon W/VIDEO W/VIDEO 3:19 PM EDT 03:19:24 PM [facility] CULTURE, URINE CULTURE, URINE Routine 12/05/2019 020 Bon 2:45 PM EDT 02:45:00 PM [facility] URINALYSIS W/ URINALYSIS W/ STAT 12/05/2019 0 Bon RFLX RFLX 2:45 PM EDT 02:45:00 PM [facility] MICROSCOPIC [facility]COPIC [facility] BILIRUBIN, BILIRUBIN, Routine 12/05/2019 12/05/2019 Bon CONFIRM CONFIRM 2:45 PM EDT 02:45:00 [facility] LACTIC ACID HC LACTIC ACID STAT 12/05/2019 020 Bon 12:40 PM 12:40:00 PM Sec [facility] CULTURE HC CULTURE STAT 12/05/2019 12/05/2019 Bon BLOOD BLOOD 12:38 PM 12:38:00 PM Sec ours EDT EDT [facility] PROTHROMBIN PROTHROMBIN STAT 12/05/2019 12/05/2019 Bon TIME + INR TIME + INR 12:38 PM 12:38:00 PM [facility] EDT [facility] CBC WITH CBC WITH STAT 12/05/2019 12/05/2019 Bon AUTOMATED DIFF AUTOMATED DIFF 12:38 PM 12:38:00 PM [facility] EDT EDT [facility] HC TROPONIN I HC TROPONIN I STAT 12/05/2019 0 Bon QUANT QUANT 12:38 PM 12:38:00 PM Sec ours EDT EDT [facility] METABOLIC METABOLIC STAT 12/05/2019 12/05/2019 Bon PANEL, PANEL, 12:38 PM 12:38:00 PM Sec ours COMPREHENSIVE COMPREHENSIVE EDT EDT [facility] MAGNESIUM MAGNESIUM STAT 12/05/2019 12/05/2019 Bon 12:38 PM 12:38:00 PM Sec ours EDT EDT [facility] HC LITHIUM HC LITHIUM STAT 12/05/2019 12/05/2019 Bon 12:38 PM 12:38:00 PM Sec ours EDT EDT [facility] CT HEAD WO CT HEAD WO STAT 12/05/2019 12/05/2019 Bon CONT CONT 12:30 PM 12:30:54 PM Sec ours EDT EDT [facility] HC CULTURE HC CULTURE STAT 12/05/2019 12/05/2019 Bon BLOOD BLOOD 12:30 PM 12:30:00 PM Sec ours EDT EDT [facility] XR PELV AP XR PELV AP STAT 12/05/2019 12/05/2019 Bon ONLY ONLY 12:14 PM 12:14:58 PM Sec ours EDT EDT [facility] XR CHEST PORT XR CHEST PORT STAT 12/05/2019 0 Bon 12:14 PM 12:14:51 PM Sec ours EDT EDT [facility] RT--OXYGEN RT--OXYGEN STAT 12/05/2019 12/05/2019 Bon CANNULA CANNULA 11:20 AM 11:20:37 AM Sec ours EDT EDT [facility] EEG DIGITAL EEG DIGITAL Routine 12/05/2019 12/05/2019 Bon ANALYSIS ANALYSIS 11:10 AM 11:10:37 AM S [facility]ours EDT EDT [facility] CBC WITH CBC WITH STAT 10/30/2019 10/30/2019 Bon AUTOMATED DIFF AUTOMATED DIFF 6:40 AM EDT 06:40: 00 AM [facility] EDT [facility] METABOLIC METABOLIC STAT 10/30/2019 10/30/2019 Bon PANEL, BASIC PANEL, BASIC 6:40 AM EDT 06:40:00 [facility] EDT [facility] URINALYSIS W/ URINALYSIS W/ STAT 10/29/2019 0 [facility] RFLX RFLX 6:34 PM EDT 06:34:00 [facility] MICROSCOPIC MICROSCOPIC EDT [facility] XR CHEST PORT XR CHEST PORT STAT 10/29/2019 0 [facility] 12:09 PM 12:09:04 PM [facility] EDT EDT [facility] CT HEAD WO CT HEAD WO STAT 10/29/2019 10/29/2019 Bon CONT CONT 11:47 AM 11:47:42 AM [facility] EDT EDT [facility] HC GLUCOSE HC GLUCOSE Routine 10/29/2019 10/29/2019 [facility] POCT POCT 11:26 AM 11:26:00 AM [facility] EDT EDT [facility] PROTHROMBIN PROTHROMBIN STAT 10/29/2019 10/29/2019 [facility] TIME + INR TIME + INR 10:45 AM 10:45:00 [facility] EDT EDT [facility] CBC WITH CBC WITH STAT 10/29/2019 10/29/2019 [facility] AUTOMATED DIFF AUTOMATED DIFF 10:45 AM 10:45:00 [facility] EDT EDT [facility] HC PARTIAL HC PARTIAL STAT 10/29/2019 10/29/2019 [facility] THROMBOPLASTIN THROMBOPLASTIN 10:45 AM 10:45:00 [facility] / PTT / PTT EDT EDT [facility] METABOLIC METABOLIC STAT 10/29/2019 10/29/2019 Bon PANEL, PANEL, 10:45 AM 10:45:00 [facility] COMPREHENSIVE COMPREHENSIVE EDT EDT [facility] HC LITHIUM HC LITHIUM STAT 10/29/2019 10/29/2019 [facility] 10:45 AM 10:45:00 [facility] EDT EDT [facility] XR SPINE LUMB XR SPINE [...] [facility] 9:00 PM EST 02:00:00 AM [facility] I nc CBC WITH AUTOMATED CBC WITH STAT 08/16/2019 0 [facility] DIFF AUTOMATED DIFF 9:00 PM EST 02:00:00 AM [facility] I nc TROPONIN I TROPONIN I STAT 08/16/2019 08/17/2019 [facility] 9:00 PM EST 02:00:00 AM [facility] I nc METABOLIC PANEL, METABOLIC PANEL, STAT 08/16/2019 [facility] COMPREHENSIVE COMPREHENSIVE 9:00 PM EST 02:00:00 AM [facility] I nc MAGNESIUM MAGNESIUM STAT 08/16/2019 08/17/2019 [facility] 9:00 PM EST 02:00:00 AM [facility] [employer] [facility] I nc LITHIUM LITHIUM STAT 08/16/2019 08/17/2019 Francisco Javier [facility] 9:00 PM EST 02:00:00 AM [facility] [employer] [facility] I nc INFLUENZA A <td><content ID="[id number]">INFLUENZA A & B 07/26 [facility] (RAPID 05:18:00 [facility] (RAPID TEST) TEST)</content></td><td>STAT</td><td>08/11/2019 EST [facility] 12:18 AM EST</td><td></td><td><paragraph Health styleCode="header">Results for this procedure are System in the <content Inc styleCode="[id number]">results section</content>.</paragraph></td> PROTHROMBIN TIME + PROTHROMBIN TIME STAT 08/11/2019 0 08/11/2019 [facility] INR + INR 12:01 AM EST 05:01:00 AM [facility] nc D DIMER D DIMER STAT 08/11/2019 08/11/2019 Francisco [facility] 12:01 AM EST 05:01:00 AM [facility] nc CBC WITH AUTOMATED CBC WITH STAT 08/11/2019 0 [facility] DIFF AUTOMATED DIFF 12:01 AM EST 05:01:00 AM [facility] nc PTT PTT STAT 08/11/2019 08/11/2019 Francisco Javier [facility] 12:01 AM EST 05:01:00 AM [facility] nc TROPONIN I TROPONIN I STAT 08/11/2019 08/11/2019 [facility] 12:01 AM EST 05:01:00 AM [facility] nc METABOLIC PANEL, METABOLIC PANEL, STAT 08/11/2019 [facility] COMPREHENSIVE COMPREHENSIVE 12:01 AM EST 05:01:0 0 AM [facility] nc MAGNESIUM MAGNESIUM STAT 08/11/2019 08/11/2019 [facility] 12:01 AM EST 05:01:00 AM [facility] nc LITHIUM LITHIUM STAT 08/11/2019 08/11/2019 [facility] 12:01 AM EST 05:01:00 AM [facility] nc LACTIC ACID LACTIC ACID STAT 08/11/2019 08/11/2019 [facility] 12:01 AM EST 05:01:00 AM [facility] nc BNP BNP STAT 08/11/2019 08/11/2019 Francisco Javier [facility] 12:01 AM EST 05:01:00 AM [facility] nc RT--OXYGEN CANNULA RT--OXYGEN STAT 08/10/2019 020 [facility] CANNULA 11:51 PM EST 04:51:27 AM [facility] nc EKG, 12 LEAD, EKG, 12 LEAD, STAT 08/10/2019 0 [facility] INITIAL INITIAL 10:14 PM EST 03:14:27 AM [facility] I nc Results ID Date Data Source [id number] 03/25/2020 09:42:00 AM EDT [facility] Name Value Range Interpretation Description Data Sup porting Code Source(s) Document(s ) SARS [facility] coronavirus 2 RNA [facility] lab [facility] and reported by [facility]. ID Date Data Source [id number] 03/22/2020 09:00:00 AM EDT [facility] Name Value Range Interpretation Description Data Sup porting Code Source(s) Document(s ) SARS [facility] coronavirus 2 RNA This lab was ordered by [facility] and reported by [facility]. ID Date Data Source [id number] 03/19/2020 10:37:00 AM EDT [facility] Name Value Range Interpretation Description Data Sup porting Code Source(s) Document(s ) SARS [facility] coronavirus 2 RNA This lab was ordered by [facility] and reported by [facility]. ID Date Data Source [id number] 03/15/2020 10:30:00 AM EDT [facility] Name Value Range Interpretation Description Data Sup porting Code Source(s) Document(s ) SARS [facility] coronavirus 2 RNA This lab was ordered by [facility] and reported by [facility]. ID Date Data Source [id number] 03/12/2020 12:00:00 PM EDT [facility] Name Value Range Interpretation Description Data Sup porting Code Source(s) Document(s ) SARS [facility] coronavirus 2 RNA This lab was ordered by [facility] and reported by [facility]. ID Date Data Source [id number] 03/08/2020 10:18:00 AM EDT [facility] Name Value Range Interpretation Description Data Sup porting Code Source(s) Document(s ) SARS [facility] coronavirus 2 RNA This lab was ordered by [facility] and reported by [facility]. ID Date Data Source [id number] 03/04/2020 09:50:00 AM EDT [facility] Name Value Range Interpretation Description Data Sup porting Code Source(s) Document(s ) SARS [facility] coronavirus 2 RNA This lab was ordered by [facility] and reported by [facility]. ID Date Data Source [id number] 03/02/2020 12:15:00 PM EDT [facility] Name Value Range Interpretation Description Data Sup porting Code Source(s) Document(s ) SARS [facility] coronavirus 2 RNA This lab was ordered by [facility] and reported by [facility]. ID Date Data Source [id number] 02/27/2020 09:15:00 AM EDT [facility] Name Value Range Interpretation Description Data Sup porting Code Source(s) Document(s ) SARS [facility] coronavirus 2 RNA This lab was ordered by [facility] and reported by [facility]. ID Date Data Source [id number] 02/23/2020 11:40:00 AM EDT [facility] Name Value Range Interpretation Description Data Sup porting Code Source(s) Document(s ) SARS [facility] coronavirus 2 RNA This lab was ordered by [facility] and reported by [facility]. ID Date Data Source [id number] 02/19/2020 09:56:00 AM EDT [facility] Name Value Range Interpretation Description Data Sup porting Code Source(s) Document(s ) SARS [facility] coronavirus 2 RNA This lab was ordered by [facility] and reported by [facility]. ID Date Data Source [id number] 02/16/2020 08:40:00 AM EDT [facility] Name Value Range Interpretation Description Data Sup porting Code Source(s) Document(s ) SARS [facility] coronavirus 2 RNA This lab was ordered by [facility] and reported by [facility]. ID Date Data Source [id number] 02/13/2020 10:05:00 AM EDT [facility] Name Value Range Interpretation Description Data Sup porting Code Source(s) Document(s ) SARS [facility] coronavirus 2 RNA This lab was ordered by [facility] and reported by [facility]. ID Date Data Source [id number] 02/09/2020 10:25:00 AM EDT [facility] Name Value Range Interpretation Description Data Sup porting Code Source(s) Document(s ) SARS [facility] coronavirus 2 RNA This lab was ordered by [facility] and reported by [facility]. ID Date Data Source [id number] 01/25/2020 09:20:00 AM EDT [facility] Name Value Range Interpretation Description Data Sup porting Code Source(s) Document(s ) 2019 Novel [facility] Coronavirus RNA Interpretation Unspecified Specimen Qualitative CATA Probe Detection This lab was ordered by [facility] and reported by [employer] services[employer] includes the [facility]. ID Date Data Source [id number] 12/25/2019 05:54:30 PM EDT [facility] Name Value Range Interpretation Description Data Sup porting Code Source(s) Document(s ) [place] 0.38 0.6-1.2 Below low normal [facility] [Moles/volu MMOL/L [facility]] in Hospital Serum or Plasma ID Date Data Source [id number] 12/23/2019 01:50:56 PM EDT [facility] Discharge SummaryPatient: Maxwell Mendieta Xiao key Sex: male DOA: 12/05/2019Date of : 1970 A ge: 49 y.o. LOS: LOS: 3 daysAdmit Date: 12/05/2019Discharge Date: 12/08/2019 Admission Diagnoses: Encephalopathy acute [G93.40];Pcr-nyog-ypvglim adversereactio n to medication [T88.7XXA];Ugx-oksk-cdycklv adverse reaction tomedication [T88.7XXA] Discharge Diagnoses: #1 [...] ICD-10-CM: T50.905AICD -9-CM: E947.9 12/05/2019 - Present Hpl-devk-gibmtui adverse reaction to med ication ICD-10-CM: T88.1DCHZYK-6-EA: 995.20 12/05/2019 - Present Bipolar disorder wit [...] E66.01ICD-9-CM: 278.01 07/19/2018 - Present Spells ICD-10-CM: GSO9755OJK-3-LE: IMO00 01 04/08/2016 - Present Seizure disorder [...] Supporting Document(s ) ID Date Data Source [id number] 12/09/2019 02:14:[address] [facility] referral made. Walker order faxed t o [facility], Pending Sale To [facility] do NOT acc ept pts insurance.Faxed to Moriah at [facility] at FAX [phone]. She reports they ne ed to get authfor walker. Have instucted pt to buy own walker IF not authorized.He i s agreeable to buying walker if needs to.Care Management InterventionsPCP Verified by CM: YesTransition of Care Consult (CM Consult[facility] Home Car e: YesCurrent Support Network: Own Home, Lives with SpouseThe Patient and/or Prachi ent Seed Laboratory Assistant was Provided with a Choice of Providerand Agrees with the Discharge Plan?: YesFreedom of Choice List was Provided with Basic Dialogue that Suppor ts thePatient's Individualized Plan of Care/Goals, Treatment Preferences and Sh aresthe Quality Data Associated with the Providers?: YesVeteran Resource Informat ion Provided?: RefusedDischarge LocationDischarge Placement: [facility] BY [facility])Pt is discharged , picking him up. reports she has phone number timbo pt a follow up psych appt. [facility] to visit. will buy walker if not [...] Supporting Document(s ) ID Date Data Source [id number] 12/08/2019 03:06:17 PM EDT [facility] I have reviewed discharge instructions w ith [...] Supporting Document(s ) ID Date Data Source [id number] 12/08/2019 03:02:56 PM EDT [facility] Per your note, pt with acute encephalopa thy and toxic Serum [place] level.Please specify the type of encephalopathy in yo ur progress notes: Toxic encephalopathy due to lithium Metabolic encephalopathy due to Other cause (please specify) Clinically unable to determine UnknownPLEASE DOCUM ENT ANY ADDITIONAL DIAGNOSES AND/OR SPECIFICITY IN THE PROGRESSNOTES AND/OR DISCHARGE SUMMARY. Name Value Range Interpretation Code Description Data Melani rce(s) Supporting Document(s ) ID Date Data Source [id number] 12/08/2019 02:40:45 PM EDT [facility] Problem: SuicideGoal: *STG: Remains safe in hospital12/08/2019 1440 by Ru Mosher: Resolved/Met12/08/2019 1439 by Ru Mosher: Progressing Towards GoalGoal: *STG: Seeks staff when feeling s of self harm or harm towards others arise12/08/2019 1440 by Mosher, KatyOutcome : Resolved/Met12/08/2019 1439 by Ru Mosher: Progressing [...] Ru Mosher: Progressing Towards GoalGoal: *LTG: Identifies [employer]12/08/2019 1440 by Ru Mosher: Resolved/Met12/08/2019 143 by [...] Fall R isk and [facility]12/08/2019 1440 by Mosher, Divya yOutcome: Resolved/MetNote: Fall Risk Interventions:Mobility Interventions: Be [...] ActivityGoal: Patient/Family Education12/08/2019 1440 b Ru Perkins: Resolved/Met12/08/2019 1439 by Ru Mosher: Progressing T darrel GoalProblem: Pressure Injury - Risk ofGoal: *Prevention of pressure injuryDe scription: Document Harsh Scale and appropriate interventions in [facility] t.12/08/2019 1440 by Ru Mosher: [...] Supporting Document(s ) ID Date Data Source [id number] 12/08/2019 02:40:17 PM EDT [facility] Problem: SuicideGoal: *STG: Remains safe in hospitalOutcome: [...] Fall R isk and appropriate [facility]Outcome: Progressing Toward s GoalNote: Fall Risk Interventions:Mobility [...] Document Harsh Scale and appropriate interventions in [facility].Outcome: P rogressing Towards GoalNote: Pressure [...] Supporting Document(s ) ID Date Data Source [id number] 12/08/2019 01:18:54 PM EDT [facility] General Daily Progress NoteAdmit Date: Hospital day: .tdSubjective:Psycgm Neuro,and PT assessments reviewed. Patie nt qualifies for discharge. Wifecalled, will bring in clothes. New medical regimen di scussed with the . Willneed Scho[place]ck level later this week.Current Facility-Adminis tered MedicationsMedication [...] past 8 hrs: BP Temp Pulse Resp OtL26112/07 0816 - - - - 96 %12/08/19 [...] initial encounter (12/05/2019)Active Problems: Encephalopathy acute (12/05/2019) Thh-qgwb-txbwkdt adve rse reaction to medication (12/05/2019)Plan: day of discharge. Name Value Range Interpretation Code Description Data Melani rce(s) Supporting Document(s ) ID Date Data Source [id number] 12/08/2019 12:09:30 PM EDT [facility] Problem: Mobility Impaired (Adult and Pe diatric)Goal: [...] y.o. male)Date: 12/08/2019Primary Diagnosis: E ncephalopathy acute [G93.40]Yfd-qdzo-jkjiyun adverse reaction to medication [T88.7XXA ]Cmn-jaaf-jmfnfic adverse reaction to medication [T88.7XXA]Precautions: Fall ASSESSMENT [...] mortality cardiac cath at [facility] approx 6-8 months ago Other unknown [...] NoneCritical Beh avior:Neurologic State: AlertOrientation Level: Oriented N8Ibuysfbux: Appropriate for age attention/concentration;Follows commandsSafety/Judgement: Decreased awar [...] Supporting Document(s ) ID Date Data Source [id number] 12/08/2019 11:48:[address] [facility] Name Value Range Interpretation Description Data Sup porting Code Source(s) Document(s ) Glucose 132 MG/DL 65-110 Above high normal [facility] [Mass/volume] [facility] in Blood by Hospital Automated test strip ID Date Data Source [id number] 12/08/2019 10:35:45 AM EDT [facility] S/O Patient has shown improvement. He re ports that medications are helping him.He denies any side effectsHe denies any cecilia cidal thoughtsHe reports that he sees a psychiatrist [facility] 300 mg bid [place] level in two days Will increase Zyprexa 5 mg Will follow up as requested Name Value Range Interpretation Code Description Data Melani rce(s) Supporting Document(s ) ID Date Data Source [id number] 12/08/2019 07:28:52 AM EDT [facility] Bedside and Verbal shift change report cristi Hurley, SUSI (oncoming nurse) Annalise DE LEON RN (offgoing nurse). Repor t included the followinginformation SBAR, Kardex, MAR and Recent Results. Name Value Range Interpretation Code Description Data Melani rce(s) Supporting Document(s ) ID Date Data Source [id number] 12/07/2019 08:26:02 PM EDT [facility] Problem: Falls - Risk ofGoal: *Absence o [...] Supporting Document(s ) ID Date Data Source [id number] 12/07/2019 07:05:28 PM EDT [facility] Verbal shift change report given to Chandrakant Cox RN (oncoming nurse) by Steven Villalobos RN (offgoing nurse). Report inc luded the following information SBAR, Kardex,Intake/Output, MAR, Recent Result s and Cardiac Rhythm on telemetry. Name Value Range Interpretation Code Description Data Melani rce(s) Supporting Document(s ) ID Date Data Source [id number] 12/07/2019 01:30:56 PM EDT [facility] Trent Jacob MD[address], [address] [place] [address] [id number] Progress NotePatient: Maxwell Bray Sex: male DOA: [...] (LOVENOX) injection 40 mg 40 mg SubCUTAneous Z35VBaidyyusl:Visit VitalsBP 153/85 (BP 1 Location: Left arm, BP Prachi ent Position: At rest)Pulse 96Temp 98.7 F (37.1 C)Resp 20Ht 5' 5.75" (1.67 m)Wt 3 01 lb 1.6 oz (136.6 kg)SpO2 96%BMI 48.97 kg/m Body mass index is 48.97 kg/m .Patient V itals for the past 24 hrs: Temp Pulse Resp BP PcP91912/07/19 1249 - 96 - 153/85 - 0 [...] the time notated as "note time" in [facility]. 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 Seizure disorder ([facility]) G40.909 Spells [id number] Severe obesity ([facility]) E66.01 Depression F32.9 Anxiety F41.9 Bipolar disorder ([facility]CC) F31.9 Depressive disorder F32.9 Status post g astric bypass for obesity Z98.84 Morbid obesity ([facility]) E66.01 Mixed anxiety and depressive disorder F41.8 Vitamin D deficiency E55.9 Bipolar disorder with severe depression (HCC) F31.4 Encephalopathy acute G93.40 Adverse drug reaction, ini tial encounter T50.905A Grp-asns-rbaiowl adverse reaction to medication T88.7XXA 49 year [...] Supporting Document(s ) ID Date Data Source [id number] 12/07/2019 01:02:36 PM EDT [facility] Pt seen and discussed with Dr Canas .Pt is tearful flat and denies any suicidal thoughts , has been depressed withlithiu m on hold , No Vraylar and he is unable to get his ECT at [facility] And no w will be with [facility] with Dr Womack his lithium level is un therape utic range I will start on lithium , add 2.5mg of zyprexa and lower his klonopin And increase his elavil to 200 mg HSWill get pt followed up with Psychiatry Name Value Range Interpretation Code Description Data [facility] rce(s) Supporting Document(s ) ID Date Data Source [id number] 12/07/2019 12:52:32 PM EDT [facility] Problem: Fluid Volume - Risk of, Imbalan cedGoal: *Balanced intake and outputOutcome: Progressing Towards GoalProblem: Patient Education: Go to Patient Education ActivityGoal: Patient/Family EducationOu tcome: Progressing Towards Goal Name Value Range Interpretation Code Description Data [facility] rce(s) Supporting Document(s ) ID Date Data Source [id number] 12/07/2019 12:45:20 PM EDT [facility] Problem: Falls - Risk ofGoal: *Absence o [...] Bra den Scale and appropriate interventions in [facility].Outcome: Progressing Toward s GoalNote: Pressure Injury Interventions:Sensory [...] Supporting Document(s ) ID Date Data Source [id number] 12/07/2019 12:24:47 PM EDT [facility] General Daily Progress NoteAdmit Date: Hospital [...] injection 40 mg 40 mg SubCUTA neous T10FWprlkcnus:Patient Vitals for the past 8 hrs: BP Temp Pulse Resp KaK31212/06 0956 147/86 98.7 F (37.1 C) 95 [...] initial encounter (12/05/2019)Active Problems: Encephalopathy acute (12/05/2019) Kbx-memr-itwgjga adve rse reaction to medication (12/05/2019)Plan:To increase activity, diet,klonopin. Start Losartan Name Value Range Interpretation Code Description Data Melani rce(s) Supporting Document(s ) ID Date Data Source [id number] 12/07/2019 10:13:28 AM EDT [facility] LTM EEG shook splicer DC'd per Dr. Jacob. Name Value Range Interpretation Code Description Data Melani rce(s) Supporting Document(s ) ID Date Data Source [id number] 12/07/2019 10:08:[address] [facility], [place] [address]NTXMIEQ: MAXWELL BRAYMRN: [id number]: [id number]#: [id number] DATE: 12/05/2019LONG TERM MONITORING VIDEO LATRINE CLEANER: Riky Rodriguez HISTORY: The patient is a [...] montages. Digital analysis was performed employing an [employer] neuralnetwork program with parameterization and statistical analysi [...] seen, that attenuates with eye opening.There was qhxr-sw-gdpzyefs gener alized background slowing.There was no clear focal slowing.ACTIVATION TECHNIQUES: Ph otic stimulation and hyperventilation were notperformed.SLEEP: During drowsiness, there is mild attenuation and slowing of thebackground rhythm. There was normal sleep seen including symmetric vertexwaves, sleep spindles, and K-complexes.OTHER AC TIVITY: There were no clear epileptiform discharges and no seizures orclinical ev ents recorded.DIGITAL ANALYSIS: Variable spectral pattern without significant lef f-cj-nrsjazfhcagteaeq. Spikes were artifact in nature.DECEMBER 06 DAILY [...] the awake and asleep states due to wjks-cf-rvpeghxw diffuse cerebraldysfunc tion that improves to mild over the course of the recording. TRENT JACOB, MDDD: #12/06/2019 10:21:35/SS /[id number]/[id number] #: [id number] / [id number] Name Value Range Interpretation Code Description Data [facility] rce(s) Supporting Document(s ) ID Date Data Source [id number] 12/07/2019 07:45:20 AM EDT [facility] Bedside and Verbal shift change report cristi Dove RN (3Loria) (oncomingnurse) by Vy Green RN (offgoing nurse). Report included the following information SBAR, Kardex, MARand Recent Results. Name Value Range Interpretation Code Description Data [facility] rce(s) Supporting Document(s ) ID Date Data Source [id number] 12/07/2019 07:22:41 AM EDT [facility] All leads and head wrapping intact. Day 2 LTM complete. Awaiting instructions tocontinue for day 3 or DC. Name Value Range Interpretation Code Description Data [facility] rce(s) Supporting Document(s ) ID Date Data Source [id number] 12/07/2019 05:19:11 AM EDT [facility] Name Value Range Interpretation Description Data Sup porting Code Source(s) Document(s ) Sodium 138 136-145 [facility] [Moles/volume] mmol/L [facility] in Serum or Hospital Plasma Potassium 3.5 3.5-5.1 [facility] [Moles/volume] mmol/L [facility] in Serum or Hospital Plasma Chloride 106 98-107 [facility] [Moles/volume] mmol/L [facility] in Serum or Hospital Plasma Carbon 27 21-32 [facility] dioxide, total mmol/L [facility] [Moles/volume] Hospital in Serum or Plasma Anion gap in 10 10-20 [facility] Serum or mmol/L [facility] Plasma Hospital Glucose 140 74-106 Above high normal [facility] [Mass/volume] mg/dL [facility] in Serum or Hospital Plasma Urea nitrogen 19 mg/dL 7-18 Above high normal [facility] [Mass/volume] [facility] in Serum or Hospital Plasma Creatinine 0.94 0.70-1.3 [facility] [Mass/volume] mg/dL 0 [facility] in Serum or Hospital Plasma Glomerular >60 [facility] - [facility] filtration [facility] rate/1.73 sq M Hospital predicted among blacks [Volume Rate/Area] in Serum or Plasma by Creatinine-bas ed formula (MDRD) Glomerular >60 [facility] - [facility] filtration [facility] rate/1.73 sq M Hospital predicted among non-blacks [Volume Rate/Area] in Serum or Plasma by Creatinine-bas ed formula (MDRD) (NOTE)Estimated GFR is calculated using the Modification of Diet in RenalDisease (MDRD) Study equation, reported for both Americans(GFRAA) and non- Americans (GFRNA), and normalized to 1.7 0g8lbcr surface area. The physician must decide which [...] Serum 9.1 mg/dL 8.5-10.1 [facility] ID Date Data Source [id number] 12/06/2019 08:12:24 PM EDT [facility] Bedside and Verbal shift change report cristi Loyd RN (oncoming nurse) Estephania Wakefield RN (offgoing nurse). Report included the followinginformation SBAR, Kardex, MAR, Recent Results, and Med Rec Status. Name Value Range Interpretation Code Description Data Melani rce(s) Supporting Document(s ) ID Date Data Source [id number] 12/06/2019 04:57:12 PM EDT [facility] General Daily Progress NoteAdmit Date: Hospital day: [...] (LOVENOX) injection 40 mg 40 mg SubCUTAneous L12UBjpjbcnro:Patient Vi tals for the past 8 hrs: BP Temp Pulse Resp TeL63112/06/19 1547 (!) 164/100 99.6 F (3 7.6 [...] Time: 12/06/19 4:25 AMResult Value Ref Range [place] level 1.09 0.6 - 1.2 MMOL/L Xr [...] initial encounter (12/05/2019)Active Problems: Encephalopathy acute (12/05/2019) Auf-xall-jygcqfo adve rse reaction to medication (12/05/2019)Plan:To reduce iv fluids, repeat lasix Name Value Range Interpretation Code Description Data Melani rce(s) Supporting Document(s ) ID Date Data Source [id number] 12/06/2019 04:14:48 PM EDT [facility] Psychiatry Consult NoteSubjective:Patien t: Maxwell Bray Age: [...] of morbidity or mortality cardiac cath at [facility] approx 6-8 months ago Other unknown and unspecified cause of morbidity or mortal ity concussions Other unknown and unspecified cause of morbidity or mortal ity "periodic disorientation" Other unknown and unspecified cause of morbidity or mo rtality anxiety Psychiatric disorder anxiety, depressionPsychiatric History: Patient reported he was receiving care in outpatient from [facility] psychiatrist marly faust did not discuss details.Substance Use History:Social HistorySubstance and Sexu al ActivityAlcohol Use No Frequency: Never Drinks per session: 1 or 2 Binge freque ncy: NeverSocial HistorySubstance and Sexual ActivityDrug Use NoObjective:Vitals/Phys ical Assessment:Patient Vitals for the past 8 hrs: BP Temp Pulse Resp ZrQ40512/06/19 081 3 (!) 153/94 100.4 F (38 [...] encounter (12/05/2019)A ctive Problems: Encephalopathy acute (12/05/2019) Rkr-rbxm-fchxtzu adverse re action to medication (12/05/2019)Plan:No current [...] Supporting Document(s ) ID Date Data Source [id number] 12/06/2019 01:18:16 PM EDT [facility] Trent Jacob MD[address], [address] [place] [address] [id number].LivePerson Progress NotePatient: Maxwell Bray Sex: male DOA: 12/05/2019Date of : 1970 Age: 49 y.o. LOS: LOS: 1 daySubjective:Awake, alert, tremulous, no current complaintsEEG w/ mild to mod gen slowREVIEW OF SYSTEMS: NO CP, SOB, N,V,D, F,CCurrent Facility-Administered MedicationsMedication Dose Route Frequen cy 0.9% sodium chloride infusion 125 mL/hr IntraVENous CONTINUOUS enoxaparin (LOVE NOX) injection 40 mg 40 mg SubCUTAneous J27KDqmeyclhf:Visit VitalsBP (!) 153/94 (BP 1 Location: Left arm, BP Patient Position: At rest)Pulse 100Temp 100.4 F (38 C)Resp 18Ht 5' 5.75" (1.67 m)Wt 300 lb (136.1 kg)SpO2 96%BMI 48.79 kg/m Body mass index is 48.79 kg/m .Patient Vitals for the past 24 hrs: Temp Pulse Resp BP VwA18612/06/19 0813 100.4 F (38 C) 100 18 (!) 153/94 96 %12/06/19 0445 99.6 F (37.6 C) - - - -12/06/19 0439 (!) 100.6 F (38.1 C) (!) 103 19 (!) 149/93 97 %12/06/19 00 47 - - - 138/90 -12/05/192102 97.5 F (36.4 C) 73 18 - [...] past 24 hours were reviewed both during [facility] daily workflow process and at [...] Time: 12/06/19 4:25 AMResult Value Ref Range [place] level 1.09 0.6 - 1.2 MMOL/LCT Results (most recent):Results from Hospital [facility] encounter on 12/05/19CT HEAD WO CONT [...] the brain.MRI Results (most recent):[facility] from [facility] encounter on 12/05/19MRI BRAIN WO CONT Narrative [...] hic pain of shoulder M79.2 Seizure disorder ([facility]) G40.909 Spells [id number] Severe ob esity ([facility]) E66.01 Depression F32.9 Anxiety F41.9 Bipolar disorder ([facility]) F31.9 Dep ressive disorder F32.9 Status post gastric bypass for obesity Z98.84 Morbid obesit y ([facility]) E66.01 Mixed anxiety and depressive disorder F41.8 Vitamin D deficiency E55 .9 Bipolar disorder with severe depression ([facility]) F31.4 Encephalopathy acute G93.40 Adverse drug reaction, initial encounter T50.905A Cpq-tsjj-eawgkum adverse react ion to medication T88.7XXA49 year [...] Supporting Document(s ) ID Date Data Source [id number] 12/06/2019 11:43:34 AM EDT [facility] LTM study day 1 complete. All leads and head wrapping intact. Day 2 LTM studycommenced and LIVE via WIFI on [facility]. 06/28 Name Value Range Interpretation Code Description Data Melani rce(s) Supporting Document(s ) ID Date Data Source [id number] 12/06/2019 10:48:32 AM EDT [facility] Care Management InterventionsPCP Verifie d by CM: YesCurrent Support Network: Own Home, Lives with SpouseThe Patient and/o r Patient Seed Laboratory Assistant was Provided with a Choice of Providerand Agrees with the Betty rose Plan?: YesFreedom of Choice List was Provided with Basic Dialogue that Suppor ts thePatient's Individualized Plan of Care/Goals, Treatment Preferences and Sh aresthe Quality Data Associated with the Providers?: YesVeteran Resource Informat ion Provided?: RefusedDischarge LocationDischarge Placement: HomeCASE YUE LORENZ PSYCHOSOCIAL ASSESSMENTMaxwell Mendieta Asa Admission Marlon e: 12/05/2019MRN: [id number] of : 1970Current date: 12/06/2019 DISCHARGE PLAN: Patient is a 49 year old male admitted to [facility]. CM attempted toreach hi m via [...] services. Open for SNF. Family would like [facility]. CM CCLINKD. CM willfollow.Patient Information:Patients [...] NoPCP: Ritika Canas MDAdmitting Provider: Ritika lobo MDN[facility] DU[facility] MOLD CLEANER: N/APayor: P ayor: [facility] HEALTH PLAN / Plan: [facility] HEALTH PLAN /Product [place] [facility] [place] Payor : @[facility]ENTERINSGROUPNAME@Encephalopathy acute [G93.40]Jdt-rpxe-wgmuztv adverse reactio n to medication [T88.7XXA]Cng-vivf-vimotlc adverse reaction to medication [T88.7XXA ]Patient Active Problem ListDiagnosis Code H/O gastric bypass Z98.84 Insomnia G47. 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 Seizure disorder (HCC) G40.909 Spells I [id number] Severe obesity (HCC) E66.01 Depression F32.9 Anxiety F41.9 Bipolar disorder (HCC) F31.9 Depressive disorder F32.9 Status post gastric bypass for ob esity Z98.84 Morbid obesity (HCC) E66.01 Mixed anxiety and depressive disorder F4 1.8 Vitamin D deficiency E55.9 Bipolar disorder with severe depression (HCC) F3 1.4 Encephalopathy acute G93.40 Adverse drug reaction, initial encounter T50.905 A Rmj-hvyn-ouqcaye adverse reaction to medication T88.7XXASocial HistorySubstan ce and Sexual ActivityAlcohol Use No Frequency: Never Drinks per session: 1 or 2 Binge frequency: NeverNumber of stairs into patient home:DME:Cohabitants:Abuse Screen:Physical Abuse/Neglect: DeniesSexual Abuse: DeniesVerbal Abuse: DeniesOther A buse/Issues: DeniesINSURANCE INFORMATION: (Verification)Primary Notes:Secondary No kenton:Workmen's Comp Notes:No-Fault Notes:SSD Notes:Un-Insured Notes:[facility] Notes:Current Functioning:Language barriers: [...] Supporting Document(s ) ID Date Data Source [id number] 12/06/2019 07:40:06 AM EDT [facility] 8: Patient found in bed resting quiet [...] Supporting Document(s ) ID Date Data Source [id number] 12/06/2019 05:07:27 AM EDT [facility] Name Value Range Interpretation Description Data Sup porting Code Source(s) Document(s ) Schoeneck 1.09 0.6-1.2 [facility] [Moles/volu MMOL/L [facility] in Hospital Serum or Plasma ID Date Data Source [id number] 12/05/2019 07:59:09 PM EDT [facility] Name Value Range Interpretation Description Data Sup porting Code Source(s) Document(s ) Ammonia 16 UMOL/L 11-32 [facility] - Good [Moles/volum [facility] e] in Plasma Hospital ID Date Data Source [id number] 12/05/2019 07:56:38 PM EDT [facility] Name Value Range Interpretation Description Data Sup porting Code Source(s) Document(s ) Lactate 0.9 0.4-2.0 [facility] - [facility] [Moles/volu MMOL/L [facility] me] in Hospital Serum or Plasma ID Date Data Source [id number] 12/05/2019 06:42:57 PM EDT [facility] LTM EEG shook splicer complete. Day 1 LTM comm enced and LIVE via WIFI on 06/28 Name Value Range Interpretation Code Description Data Melani rce(s) Supporting Document(s ) ID Date Data Source [id number] 12/05/2019 06:07:34 PM EDT [facility] [id number] [facility]ITAL[facility] GSH 4T OR THOPEDICS [address] [facility] [address] [phone] Maxwell Bray (Male) [id number] I 3 ED Dispo:ADMIT Chief Complaint: Fall, Fatigue Diagnosis: Altered mental status, unspecified altered mental status type [] Adverse drug reaction, initial encounter [] Encephalopathy acute [] Ohv-lxyd-rbkcsge adverse effect of medication, subsequent encounter [] Bipolar disorder with severe depression (HCC) [] H/O gastric bypass [] Curre nt Providers: Attending: Patsy Manzo; Kristy Otero; Cristi Canas Consulting Provider: Jose Centeno; Cristi Canas; Javier Khan; Cristi Frazier Primary Nurse: BAILEY GambleN: [phone] [employer] [phone] - [facility] [employer] MrnMRN: [id number] [employer] [phone] - [facility] [employer] Age SexDOB 1970 AGE 49 SEX Male Primary Care Provider: Ritika Canas MD Phone: Allergies: (No Known Allergies)Date Reviewed: 12/05/2019Reviewed by: Ritika Canas MD - Review CompleteED Provider Notes: All notesHNO ID: [id number]: Julio Manzo MDService: EMERGENCYAuthor Type: Physici anFiled: [...] mortality cardiac cath at [facility] approx 6-8 months ag o Other [...] week Gets together: Once a week Attends religion service: More than 4 times per year [...] Calculation (Bez et) 515 ms Calculated P [place] 40 degrees Calculated R [place] 41 degrees Calculated T [place] 147 degrees Diagnosis Sinus tachycardiaProbable left atrial [...] Time: 12/05/19 12:38 PMResult Value Ref Range [place] level 1 .53 (HH) 0.6 - 1.2 MMOL/LLACTIC ACID Collection Time: 12/05/19 12:40 PMResult Value Ref Range Lactic acid 1.1 0.4 - 2.0 MMOL/LEKG:Sinus tachycardia at 100 BPM, normal axis, nothing acute.Interpreted by Julio Manzo MD11:20 AM secured entrance monitor reading shows sinus tachycardia at 100 [...] mental status, unspecified altered mental status type R41.10563.97Patient c ondition at time of disposition: StableI [...] (2) linda es dailyas needed. Other, Paul, Julio Izaguirre MD I, Joseph Silber, am [...] thediagnostic studies, unless otherwise noted.+ED Orde rs [id number] CUT OUT STITCHER - ED ONLY [#[id number]] Priority: STAT Class: Hospital Performe d Standing Order Information Remaining Occurrences:0/1 Interval:Continuous Last release d:12/05/2019 Released orders: SunDec 05, 2019 11:20 AM by: JULIO MANZO Type: -> Bedside N [id number] PULSE OXIMETRY CONTINUOUS [#[id number]] Priority: STAT Class: Hospital Performe d Standing Order Information Remaining Occurrences:0/1 Interval:CONTINUOUS Last release d:12/05/2019 Released orders: SunDec 05, 2019 11:20 AM by: JULIO MANZO [id number] PULSE OXIMETRY SPOT CHECK [#[id number]] Priority: STAT Class: Hospital Performed Standing Order Inf ormation Remaining Occurrences:0/1 Interval:ONE TIME Last released:12/05/2019 Release d orders: SunDec 05, 2019 11:20 AM by: JULIO MANZO [id number] OBTAIN OLD EKG [ #[id number]] Priority: Routine Class: Hospital Performed Standing Order Information Remainin g Occurrences:0/1 Interval:ONE TIME Last released:12/05/2019 Released orders : SunDec 05, 2019 11:20 AM by: JULIO MANZO [id number] CUT OUT STITCHER - ED ONLY [# [id number]] Priority: STAT Class: Hospital Performed Type: -> Bedside Released on: 12/05/2019 11:20 AM [id number] PULSE OXIMETRY CONTINUOUS [#[id number]] Priority: STAT Class: Hospital Performe d Released on: 12/05/2019 11:20 AM [id number] PULSE OXIMETRY SPOT CHECK [#[id number]] Priori ty: STAT Class: Hospital Performed Released on: 12/05/2019 11:20 AM [id number] OBTAIN OLD EKG [#[id number]] Priority: STAT Class: Hospital Performed Released on: 12/05/2019 11:20 AM [id number] VITAL SIGNS PER UNIT ROUTINE [#[id number]] Priority: STAT Class: Hospital Performed Stand ing Order Information Remaining Occurrences:0/1 Interval:CONTINUOUS Last released :12/05/2019 Released orders: SunDec 05, 2019 2:41 PM by: RITIKA CANAS Comment:More frequent ly if Indicated. [id number] BEDREST, COMPLETE [#[id number]] Priority: STAT Class: H ospital Performed Standing Order Information Remaining Occurrences:0/1 Interval:CONTIN UOUS Last released:12/05/2019 Released orders: SunDec 05, 2019 2:41 PM by: RITIKA CANAS [id number] NOTIFY PROVIDER: VITAL SIGNS CHANGES [#[id number]] Priority: STAT Class: Hospital Performe d Standing [...] Less than 120 ml in 4 hours [id number] APPLY/MAINTAIN SEQUENTIAL COMPRESSIO* [# [id number]] Priority: STAT Class: Hospital Performed Standing Order Information Remaining Occurre nces:0/1 Interval:CONTINUOUS Last released:12/05/2019 Released orders: SunDec 05, 2019 2:41 PM by: RITIKA CANAS [id number] VITAL SIGNS PER UNIT ROUTINE [#[id number]] Priorit y: STAT Class: Hospital Performed Comment:More frequently if Indicated. Released on: 12/05/2019 2 :41 PM [id number] BEDREST, COMPLETE [#[id number]] Priority: STAT Class: Hospital Performe d Released on: 12/05/2019 2:41 PM [id number] NOTIFY PROVIDER: VITAL SIGNS CHANGES [#[id number]] Priority: STAT Class: Hospital Performed Temp -> [...] carmen rs Released on: 12/05/2019 2:41 PM [id number] APPLY/MAINTAIN SEQUENTIAL COMPRESSIO* [#[id number]] P riority: STAT Class: Hospital Performed Released on: 12/05/2019 2:41 PM [id number] RT--OXYGEN CANNULA [#[id number]] Priority: STAT Class: Hospital Performed Standing Order Information Remaining Occurrences:0/1 Interval:CONTINUOUS Last released:12/05/2019 Released o rders: SunDec 05, 2019 11:20 AM by: JULIO MANZO LPM -> 2 Indications for O2? -> CHEST PAIN [id number] RT--OXYGEN CANNULA [#[id number]] Priority: STAT Class: Hospital Performe d LPM -> 2 Indications for O2? -> CHEST PAIN Released on: 12/05/2019 11:20 AM [id number] DIET NPO [#[id number]] Canceled Priority: STAT Class: Hospital Performed Cancele d by RITIKA CANAS on SunDec 05, 2019 2:41 PM Reason: None Comment: Standing Order Information Remaining Occurrences:0/1 Interval:DIET EFFECTIVE NOW Last released:12/05/2019 Release d orders: SunDec 05, 2019 11:20 AM by: JULIO MANZO NPO options: -> With Meds [id number] DIET NPO [#[id number]] Canceled Priority: STAT Class: Hospital Performed Cancele d by RITIKA CANAS on SunDec 05, 2019 2:41 PM Reason: None Comment: NPO options: -> With Meds Released on: 12/05/2019 11:20 AM [id number] DIET NPO [#[id number]] Priority: S TAT Class: Hospital Performed Standing Order Information Remaining Occurrences:0/1 Inter haile:DIET EFFECTIVE NOW Last released:12/05/2019 Released orders: SunDec 05, 2019 2:41 PM by: RITIKA CANAS [id number] DIET NPO [#[id number]] Priority: STAT Class: H ospital Performed Released on: 12/05/2019 2:41 PM [id number] SALINE LOCK IV [#[id number]] Priority: STAT Class: Hospital Performed Standing Order Information Remaining Occurrences:0 /1 Interval:ONE TIME Last released:12/05/2019 Released orders: SunDec 05, 2019 11:20 AM by: JULIO MANZO IVT11 SALINE LOCK IV [#[id number]] Priority: STAT Cl ass: Hospital Performed Released on: 12/05/2019 11:20 AM [id number] METABOLIC PANEL, COMPREHENSIVE [# [id number]] Priority: STAT Class: ER Collect Standing Order Information Remaining Occurrences:0 /1 Interval:ONE TIME Last released:12/05/2019 Released orders: SunDec 05, 2019 11:20 AM by: JULIO MANZO [id number] CBC WITH AUTOMATED DIFF [#[id number]] Priority: STAT Cl ass: ER Collect Standing Order Information Remaining Occurrences:0/1 Interval:ONE TI ME Last released:12/05/2019 Released orders: SunDec 05, 2019 11:20 AM by: JULIO MANZO [id number] TROPONIN I [#[id number]] Priority: STAT Class: ER Collect Sta nding Order Information Remaining Occurrences:0/1 Interval:ONE TIME Last released:0 12/05/2019 Released orders: SunDec 05, 2019 11:20 AM by: JULIO MANZO [id number] MAGNESIUM [#[id number]] Priority: STAT Class: ER Collect Standing Order Information Remaining Occurrences:0/1 Interval:ONE TIME Last released:12/05/2019 Released orders : SunDec 05, 2019 11:20 AM by: JULIO MANZO [id number] LACTIC ACID [#[id number]] Priority: STAT Class: ER Collect Standing Order Information Remaining Occurrences:0/2 Interval:NOW THEN EVERY 4 HOURS Last released:12/05/2019 Released orders: SunDec 05, 2019 12:06 PM by: JULIO MANZO SunDec 05, 2019 11:20 AM by: JULIO MANZO [id number] PROTHROMBIN TIME + INR [#[id number]] Priority: STAT Class: ER Collect Standing Order Information Remain ing Occurrences:0/1 Interval:ONE TIME Last released:12/05/2019 Released orders : SunDec 05, 2019 11:20 AM by: JULIO MANZO [id number] URINALYSIS W/ RFLX MICROSCOPIC [# [id number]] Priority: STAT Class: ER Collect Standing Order Information Remaining Occurrences:0 /1 Interval:ONE TIME Last released:12/05/2019 Released orders: SunDec 05, 2019 11:20 AM by: JULIO MANZO [id number] METABOLIC PANEL, COMPREHENSIVE [#[id number]] Priority: STAT Cl ass: ER Collect Specimen Source: Plasma Specimen Collected: 12/05/2019 12:38 PM Resulting Agency: [facility] Test ID: MPL Released on: 12/05/2019 11:20 AM [id number] CBC WITH A UTOMATED DIFF [#[id number]] Priority: STAT Class: ER Collect Specimen Source: Whole Blood S pecimen Collected: 12/05/2019 12:38 PM Resulting Agency: [facility] Test ID: CBCXA Released on: 12/05/2019 11:20 AM [id number] TROPONIN I [#[id number]] Prior ity: STAT Class: ER Collect Specimen Source: Plasma Specimen Collected: 12/05/2019 12:38 PM Resultin g Agency: [facility] Test ID: TROIP Released on: 12/05/2019 11:20 AM [id number] MAGNESIUM [#[id number]] Priority: STAT Class: ER Collect Specimen Source : Plasma Specimen Collected: 12/05/2019 12:38 PM Resulting Agency: [facility] Test ID: MGPL Released on: 12/05/2019 11:20 AM [id number] LACTIC ACID [#[id number]] P riority: STAT Class: ER Collect Specimen Source: Plasma Specimen Collected: 12/05/2019 12:40 PM Resultin g Agency: [facility] Test ID: LAC Released on: 12/05/2019 11:20 AM [id number] PROTHR OMBIN TIME + INR [#[id number]] Priority: STAT Class: ER Collect Specimen Source: Plasma Spe cimen Collected: 12/05/2019 12:38 PM Resulting Agency: [facility] Test ID: APTHR R eleased on: 12/05/2019 11:20 AM [id number] URINALYSIS W/ RFLX MICROSCOPIC [#[id number]] Prior ity: STAT Class: ER Collect Specimen Source: Urine Specimen Collected: 12/05/2019 2:45 PM Resultin g Agency: [facility] Test ID: UA Released on: 12/05/2019 11:20 AM [id number] LITHIU M [#[id number]] Priority: STAT Class: ER Collect Standing Order Information Remaining Occurrences:0/1 Interval:ONE TIME Last released:12/05/2019 Released orders : SunDec 05, 2019 11:40 AM by: MECHELLE GAMBLE [id number] LITHIUM [# [id number]] Priority: STAT Class: ER Collect Specimen Source: Serum Specimen Collected: 12/05/2019 12 :38 PM Resulting Agency: [facility] Test ID: LI Released on: 12/05/2019 11:40 AM [id number] LITHIUM [#[id number]] Canceled Priority: STAT Class: ER Collect Canceled by TENA, [facility] on SunDec 05, 2019 11:42 AM Reason: Other Comment: Duplicate Standing Order Information Remaining Occurrences:0/1 Interval:ONE TIME Last released:0 12/05/2019 Released orders: SunDec 05, 2019 11:41 AM by: ANAIS JULIO [id number] LITHIUM [#[id number]] Canceled Priority: STAT Class: ER Collect Specimen Collected: 12/05/2019 11:45 AM Resulting Agency: [facility] Test ID: LI Canceled by TENA, [facility] on SunDec 05, 2019 11:42 AM Reason: Other Comment: Duplicate Rele ased on: 12/05/2019 11:41 AM [id number] LACTIC ACID [#[id number]] Priority: STAT Cl ass: ER Collect Resulting Agency: [facility] Test ID: LAC Released on: 12/05/2019 12:06 PM [id number] AMMONIA [#[id number]] Priority: Routine Class: ER Collect Specimen Source: Blood Standing Order Information Remaining Occurrences:0/1 Interval:ONE TI ME Last released:12/05/2019 Released orders: SunDec 05, 2019 3:19 PM by: Javier KHAN [id number] AMMONIA [#[id number]] Priority: STAT Class: ER Collect Spe cimen Source: Blood Resulting Agency: [facility] Test ID: NH3 Released on: 12/05/2019 3:19 PM [id number] BILIRUBIN, CONFIRM [#[id number]] Priority: Routine Class : ER Collect Resulting Agency: [facility] Test ID: ICTO Standing Order Informat ion Remaining Occurrences:0/1 Released orders: SunDec 05, 2019 2:45 PM by: Automatic B atch Process [id number] BILIRUBIN, CONFIRM [#[id number]] Priority: Routine Class : ER Collect Specimen Source: Miscellaneous sample Specimen Collected: 12/05/2019 2:45 PM Resultin g Agency: [facility] Test ID: ICTO Released on: 12/05/2019 2:45 PM [id number] EKG, 12 LEAD, INITIAL [#[id number]] Priority: STAT Class: Hospital Performed Stand ing Order Information Remaining Occurrences:0/1 Interval:ONE TIME Last released:0 12/05/2019 Released orders: SunDec 05, 2019 11:20 AM by: JULIO MANZO Reason for Exam: -> Chest Pain [id number] EKG, 12 LEAD, INITIAL [#[id number]] Priority: STAT Class: H ospital Performed Resulting Agency: [facility] Test ID: [id number] Reason for Exam: -> Chest Pain Releas ed on: 12/05/2019 11:20 AM [id number] XR CHEST PORT [#[id number]] Priority: STAT Clas s: Hospital Performed Standing Order Information Remaining Occurrences:0/1 Interval:ONE TI ME Last released:12/05/2019 Released orders: SunDec 05, 2019 11:20 AM by: JULIO MANZO Reason for Exam -> Chest Pain [id number] CT HEAD WO CONT [#[id number]] Priority: S TAT Class: Hospital Performed Standing Order Information Remaining Occurrences:0/1 Inter haile:ONE TIME Last released:12/05/2019 Released orders: SunDec 05, 2019 11:20 AM by: JULIO MANZO Reason for Exam -> ams [id number] XR PELV AP ONLY [#[id number]] Priority: S TAT Class: Hospital Performed Standing Order Information Remaining Occurrences:0/1 Inter haile:ONE TIME Last released:12/05/2019 Released orders: SunDec 05, 2019 11:20 AM by: JULIO MANZO Reason for Exam -> fall [id number] XR CHEST PORT [#[id number]] Priority: STAT Class: Hospital Performed Specimen Collected: 12/05/2019 12:21 PM Resulting Agency: [facility] Test ID: [id number] Reason for Exam -> Chest Pain Released on: 12/05/2019 11:[id number] HEAD WO CONT [#[id number]] Priority: STAT Class: Hospital Performed Specimen Collected : 12/05/2019 12:43 PM Resulting Agency: [facility] Test ID: [id number] Reason for Exam -> ams R eleased on: 12/05/2019 11:20 AM [id number] XR PELV AP ONLY [#[id number]] Priority: STAT Class: Hospital Performed Specimen Collected: 12/05/2019 12:23 PM Resulting Agency: [facility] Test ID : [id number] Reason for Exam -> fall Released on: 12/05/2019 11:20 AM [id number] MRI BRAIN WO CONT [#[id number]] Priority: STAT Class: Hospital Performed Standing Order Information Remaining Occurrences:0/1 Interval:ONE TIME Last released:12/05/2019 Released orders : SunDec 05, 2019 3:19 PM by: JOSE KHAN Reason for Exam -> ams [id number] MRI BRA IN WO CONT [#[id number]] Priority: STAT Class: Hospital Performed Specimen Collected : 12/05/2019 5:03 PM Resulting Agency: [facility] Test ID: [id number] Reason for Exam -> ams R eleased on: 12/05/2019 3:19 PM [id number] CULTURE, BLOOD [#[id number]] Priority: Routi ne Class: ER Collect Specimen Source: Blood Standing Order Information Remaining Occurrences:0 /1 Interval:ONE TIME Last released:12/05/2019 Released orders: SunDec 05, 2019 11:20 AM by: JULIO MANZO [id number] CULTURE, BLOOD [#[id number]] Priority: STAT Cl ass: ER Collect Specimen Source: Blood Standing Order Information Remaining Occurrences:0/1 I nterval:ONE TIME Last released:12/05/2019 Released orders: SunDec 05, 2019 11:20 AM by: JULIO MANZO [id number] CULTURE, BLOOD [#[id number]] Priority: STAT Class: E R Collect Specimen Source: Blood Specimen Collected: 12/05/2019 12:38 PM Resulting Agency: [facility] Test ID: HBCS Released on: 12/05/2019 11:20 AM [id number] CULTURE, BLOOD [#[id number]] Priority: STAT Class: ER Collect Specimen Source: Blood Specimen Collected: 12/04 12:30 PM Resulting Agency: [facility] Test ID: HBCS Released on: 12/05/2019 11:20 AM CEFTRIAXONE 1 GRAM IVPB MBP [#[id number]] Priority: STAT Class: Normal An tibiotic Indications -> Sepsis of Unknown Etiology SODIUM CHLORIDE 0.9 % IV [#[id number]] Priority: STAT Class: Normal SODIUM CHLORIDE 0.9 % IV [#[id number]] Priority : STAT Class: Normal ENOXAPARIN 40 MG/0.4 ML SUB-Q SYRINGE [#[id number]] Priority: STAT Class: N ormal ENOXAPARIN 40 MG/0.4 ML SUB-Q SYRINGE [#[id number]] Priority: STAT Class: Normal FUROSEMIDE 10 MG/ML IJ SOLN [#[id number]] Priority: STAT Class: Normal CON53 IP CONSULT TO PS YCHIATRY [#[id number]] Priority: STAT Class: Hospital Performed Standing Order Information Remaining Occurrences:0/1 Interval:ONE TIME Last released:12/05/2019 Released orders : SunDec 05, 2019 11:42 AM by: JULIO MANZO Reason for Consult: -> si Did you call or spea k to the consulting provider? -> No Consult To -> si CON53 IP CONSULT TO PSYCHIATRY [#[id number]] Priority: STAT Class: Hospital Performed Reason for Consult: -> si Did you call or spea k to the consulting provider? -> No Consult To -> si Released on: 12/05/2019 11:42 AM CON62 IP CON SULT TO INTERNAL MEDICINE [#[id number]] Priority: STAT Class: Hospital Performed Standing Order Inf ormation Remaining Occurrences:0/1 Interval:ONE TIME Last released:12/05/2019 Release d orders: SunDec 05, 2019 2:16 PM by: CARLA OTERO Reason for Consult: -> Altered mental st atus, Dr. Canas to admit Did you call or speak to the consulting provider? -> Yes CON62 IP CONSULT TO INTERNAL MEDICINE [#[id number]] Priority: STAT Class: Hospital Performed Reason for Consu lt: -> Altered mental status, Dr. Canas to admit Did you call or speak to the consulting provider? -> Yes Released on: 12/05/2019 2:16 PM CON53 IP CONSULT TO PSYCHIATRY [#[id number]] Priority: STAT Class: Hospital Performed Standing Order Information Remaining Occurrences:0 /1 Interval:ONE TIME Last released:12/05/2019 Released orders: SunDec 05, 2019 2:41 PM by: RITIKA CANAS Reason for Consult: -> adverse med reaction Did you call or speak to t he consulting provider? -> No Consult To -> Dr Aguirre Schedule When? -> TODAY CON9 IP CONSULT TO N EUROLOGY [#[id number]] Priority: STAT Class: Hospital Performed Standing Order Information Remaining Occurrences:0/1 Interval:ONE TIME Last released:12/05/2019 Released orders : SunDec 05, 2019 2:41 PM by: RITIKA CANAS Reason for Consult: -> encephalopathy adverse drug reaction Did you call or speak to the consulting provider? -> No Consult To -> Dr Jacob Schedule When? -> TODAY CON53 IP CONSULT TO PSYCHIATRY [#[id number]] Priority: STAT Class: H ospital Performed Reason for Consult: -> adverse med reaction Did you call or speak to the consulting provider? -> No Consult To -> Dr Aguirre Schedule When? -> TODAY Released on: 12/05/2019 2:41 P M CON9 IP CONSULT TO NEUROLOGY [#[id number]] Priority: STAT Class: Hospital Performe d Reason for Consult: -> encephalopathy adverse drug reaction Did you call or speak to the consulting provider? -> No Consult To -> Dr Jacob Schedule When? -> TODAY Released on: 12/05/2019 2:41 P M [id number] INITIAL PHYSICIAN ORDER: OBSERVATION* [#[id number]] Priority: Routine Class: ADT Pend Trans milvia Standing Order Information Remaining Occurrences:0/1 Interval:ONE TIME Last release d:12/05/2019 Released orders: SunDec 05, 2019 2:00 PM by: LUZ ELENA GATES Patient Class: -> OBS ERVATION Admitting Diagnosis -> Encephalopathy acute Admitting Physician -> CARLA OTERO Attending Physician -> CARLA OTERO [id number] INITIAL PHYSICIAN ORDER: OBSERVATION* [#[id number]] Priority: Routine Class: ADT Pend Transfer Patient Class: -> OBSERVATION Admitting Diagnosis -> Encephalopathy acute Admitting Physician -> CARLA OTERO Attending Physician -> CARLA OTERO Released on: 12/05/2019 2:00 PM [id number] INITIAL PHYSICIAN ORDER: INPATIENT [#[id number]] Jaon renner: Routine Class: ADT Pend Transfer Standing [...] o- n- ) Admitting Diagnosis - > Fda-svco-xhlmgym adverse reaction to medication Admitting Physician -> RITIKA CANAS Physician -> RITIKA CANAS Estimated Length of Stay -> 5-7 Midnights Discharge Plan: -> Other (Specify) [id number] INITIAL PHYSICIAN ORDER: INPATIENT [#[id number]] Priority: Routine Class: ADT Pend Tr ansfer [...] i- o- n- ) Admitting Diagnosis -> Mht-hfhk-qtlnrrk adverse reaction to medication Admitting Physician -> RITIKA CANAS Attending Physician -> MARY CANAS Estimated Length of Stay -> 5-7 Midnights Discharge Plan: -> Other (Specify) [id number] [facility] PHYSICIAN ORDER: INPATIENT [#[id number]] Priority: Routine Class: ADT Pend Transfer Status: [...] i- o- n- ) Admitting Diagnosis -> Iui-ojlo-rfwfebq adverse reaction to medication Admitting Physician -> RITIKA CANAS Attending Physician -> MARY CANAS Estimated Length of Stay -> 5-7 Midnights Discharge Plan: -> Other (Specify) Released on: 12/05/2019 2:41 PM [facility] INITIAL PHYSICIAN ORDER: INPATIENT [#[id number]] Priority: Routine Class : ADT Pend Transfer [...] o- n- ) Adm itting Diagnosis -> Vbk-gzzp-bflmmtp adverse reaction to medication Admitting Physician -> RITIKA CANAS Attending Physician -> RITIKA CANAS Estimated Length of Stay -> 5-7 Midnights Discharge Plan: -> Other (Specify) Released on: 12/05/2019 2:41 PM COD2 FULL CODE [#[id number]] Priority: STAT Class: Hospital Performed Standing Order Information Remaining Occurrences:0 /1 Interval:CONTINUOUS Last released:12/05/2019 Released orders: SunDec 05, 2019 2:41 PM by: RITIKA CANAS COD2 FULL CODE [#[id number]] Priority: STAT Cl ass: Hospital Performed Released on: 12/05/2019 2:41 PM [id number] EEG 12-26 HR W/VIDEO [# [id number]] Priority: Routine Class: Hospital Performed Standing Order Information Remaining Occurre nces:0/1 Interval:ONE TIME Last released:12/05/2019 Released orders: SunDec 04 3:19 PM by: JOSE KHAN Reason for Exam: -> ams [id number] EEG 12-26 HR W/VIDEO [#[id number]] Priority: STAT Class: Hospital Performed Resulting Agency: [facility] Test ID: [id number] Reason for Exam: -> ams Released on: 12/05/2019 3:19 JORDYMaxwell waddell MR#: [id number] * Rm: 441- 01Ht: 5' 5.75" Wt: 300 lb Code: Full Code Iso:Diagnosis:Encep halopathy acute [G93.40]Allergies: No Known Allergies -------- Current as of: 12/05/19 1807 NB=New Bag --aspirin (ASPIRIN) tablet 325 mg #[id number] Admin Amount: 1 Tab (1 x 325 mg Tab) Ordered Dose: 325 mg Route: Oral Freq: ONCE Start Date: 12/24/13 No administration times (back 96 hours, ahead 96 hours). ------diphenhydrAMINE (BENADRYL) capsule 50 mg #[id number] Admin Amount: 1 Cap (1 x 50 mg Cap) Ordered Dose: 50 mg Route: Ora l Freq: NOW Start Date: 12/24/13 No administration times (back 96 hours, ahe ad 96 hours). ------diazepam (VALIUM) tablet 5 mg #[id number] Admin Amount: 1 Tab (1 x 5 mg Tab) Ordered Dose: 5 mg Route: Oral Freq: ON CE Start Date: 12/24/13 No administration times (back 96 hours, ahead 96 hours). ------lidocaine (XYLOCAINE) 10 mg/mL (1 %) injection 1-30 mL #[id number] Admin Amount: 1-30 mL Ordered Dose: 1-30 mL Route: IntraDERMal Freq: ONCE Start Date: 12/24/13 No administration times (back 96 hours, ahead 96 hours). ------heparin (PF) 2 units/ml in NS infusion 2,000 Units #[id number] Admin Amount: 1,000 mL = 2,000 Units of 2 Units/mL Ordered Dose: 1,000 mL [place]: Irrigation Freq: ONCE Start Date: 12/24/13 No administration times (back 96 hours, ahead 96 hours). ------heparinized saline 2 units/mL infusion 1,000 Units #[id number] Admin Amount: 500 mL = 1,000 Units of 2 Units/mL Ordered Dose: 500 mL [place]: IntraarTERial Freq: ONCE Start Date: 12/24/13 No administration times (back 96 hours, ahead 96 hours). ------0.9% sodium chloride infusion #[id number] Ordered Dose: 75 mL/hr Route: IntraVENous Freq: CONTINUOUS Start Date: 12/24/13 Rate: 75 mL/hr Duration: No administration times (back 96 hours, ahead 96 hours). ------ioversol (OPTIRAY) 320 mg iodine/mL contrast injection 1-100 mL #[id number] Admin Amount: 1-100 mL Ordered Dose: 1-100 mL Route: IntraVENous Freq: RAD O NCE Start Date: 12/24/13 No administration times (back 96 hours, ahead 96 hours).Maxwell Bray MR#: [id number] * Rm: 441-01Ht: 5' 5.75" Wt: 300 lb Cod e: Full Code Iso:Diagnosis:Encephalopathy acute [G93.40]Allergies: No Known Allergies -------- Current as of: 12/05/19 1807 NB=New Bag --gadobutrol (GADAVIST) contrast solution 1-10 mL #[id number] Admin Amount: 1-10 mL Ordered Dose: 1-10 mL Route: IntraVENous Freq: RAD O NCE Start Date: 01/13/14 No administration times (back 96 hours, ahead 96 hours). ------sodium chloride (NS) flush 5-10 mL #[id number] Admin Amount: 5-10 mL Ordered Dose: 5-10 mL Route: IntraVENous Freq: RAD ONCE Start Date: 01/13/14 No administration times (back 96 hours, ahead 96 hours). ------sodium chloride (NS) 0.9 % flush #[id number] Ordered Dose: Route: Freq: Start Date: 01/13 No administration times (back 96 hours, ahead 96 hours). ------morphine injection 2 mg #[id number] Admin Amount: 1 mL = 2 mg of 2 mg/mL Ordered Dose: 2 mg Route: IntraVENous Freq: NOW Start Date: 03/13/15 No administration times (back 96 hours, ahe ad 96 hours). ------influenza vaccine (4 yr+)(PF) (FLUCELVAX QUAD) inj ection 0.5*#[id number] Admin Amount: 0.5 mL Ordered Dose: 0.5 mL Route: IntraMUSCular Freq: PRIOR TO DISCHARGE Start Date: 03/30/16 No administration times (back 96 hours, ahead 96 hours). ------oxyCODONE-acetaminophen (PERCOCET) 5-325 mg per tablet 1 Tab #[id number] Admin Amount: 1 Tab Ordered Dose: 1 Tab Route: Oral Freq: NOW Start Date: 09/07/17 No administration times (back 96 hours, ahead 96 hours). ------barium sulfate (READICAT) 2.1 % (w/v), 2.0 % (w /w) oral suspension 9*#[id number] Admin Amount: 900 mL Ordered Dose: 900 mL Route: Oral Delgado q: RAD ONCE Start Date: 10/15/17 No administration times (back 96 hours, ahead 96 hours). ------iopamidol (ISOVUE 300) 61 % contrast injection 100 mL #[id number] Admin Amount: 100 mL Ordered Dose: 100 mL Route: IntraVENous Freq: RAD ONC E Start Date: 10/15/17 No administration times (back 96 hours, ahead 96 hours).Maxwell Bray MR#: [id number] * Rm: 441-01Ht: 5' 5.75" Wt: 300 lb Code: Full Code Iso:Diagnosis:Encephalopathy acute [G93.40]Allergies: No Known Allergies -------- Current as of: 12/05/191806 NB=New Bag --risperiDONE (RisperDAL m-tabs) disintegrating tablet 1 mg #[id number] Admin Amount: 1 Tab (1 x 1 mg Tab) Ordered Dose: 1 mg Route: Oral Freq: ONCE Start Date: 12/24/17 No administration times (back 96 hours, ahead 96 hours). ------ALPRAZolam (XANAX) tablet 2 mg #[id number] Admin Amount: 4 Tab (4 x 0.5 mg Tab) Ordered Dose: 2 mg Route: Ora l Freq: NOW Start Date: 12/24/17 No administration times (back 96 hours, ahe ad 96 hours). ------lamoTRIgine (LaMICtal) tablet 100 mg #[id number] Admin Amount: 1 Tab (1 x 100 mg Tab) Ordered Dose: 100 mg Route: Oral Delgado q: ONCE Start Date: 12/24/17 No administration times (back 96 hours, ahead 96 hours). ------OLANZapine (ZyPREXA zydis) disintegrating tablet 5 mg #[id number] Admin Amount: 1 Tab (1 x 5 mg Tab) Ordered Dose: 5 mg Route: Oral Delgado q: ONCE Start Date: 12/25/17 No administration times (back 96 hours, ahead 96 hours). ------LORazepam (ATIVAN) tablet 2 mg #[id number] Admin Amount: 4 Tab (4 x 0.5 mg Tab) Ordered Dose: 2 mg Route: Ora l Freq: NOW Start Date: 12/25/17 No administration times (back 96 hours, e ad 96 hours). ------LORazepam (ATIVAN) injection 1 mg #[id number] Admin Amount: 0.5 mL = 1 mg of 2 mg/mL Ordered Dose: 1 mg Route: Int TrevorENous Freq: NOW Start Date: 12/25/17 No administration times (back 96 hours, e ad 96 hours). ------barium sulfate (EZ PAQUE) 96 % (w/w) contrast suspension 17 6 g #[id number] Admin Amount: 176 g Ordered Dose: 176 g Route: Oral Freq: RAD ONCE Start Date: 08/02/18 No administration times (back 96 hours, ahead 96 hours). ------barium sulfate (EZ PAQUE) 96 % (w/w) contrast s uspension 176 g #[id number] Admin Amount: 176 g Ordered Dose: 176 g Route: Oral Delgado q: RAD ONCE Start Date: 08/02/18 No administration times (back 96 hours, ahead 96 hours).Luisito Maxwell donovan MR#: [id number] * Rm: 441-01Ht: 5' 5.75" Wt: 300 lb Cod e: Full Code Iso:Diagnosis:Encephalopathy acute [G93.40]Allergies: No Known Allergies -------- Current as of: 12/05/19 180 NB=New Bag --aspirin chewable tablet 162 mg #[id number] Admin Amount: 2 Tab (2 x 81 mg Tab) Ordered Dose: 162 mg Route: Oral Freq: NOW Start Date: 08/10/19 No administration times (back 96 hours, ahead 96 hours). ------0.9% sodium chloride infusion 1,000 mL #[id number] Admin Amount: 1,000 mL Ordered Dose: 1,000 mL Route: IntraVENous Freq: ONC E Start Date: 08/16/19 Rate: 1,000 mL/hr Duration: No administration ti mes (back 96 hours, ahead 96 hours). ------methylPREDNISolone (PF) (Solu-MEDROL) injection 125 mg #[id number] Admin Amount: 2 mL = 125 mg of 125 mg/2 mL Ordered Dose: 125 mg Route: Int raVENous Freq: NOW Start Date: 08/16/19 No administration times (back 96 hours, ahe ad 96 hours). ------aspirin chewable tablet 162 mg #[id number] Admin Amount: 2 Tab (2 x 81 mg Tab) Ordered Dose: 162 mg Route: Oral Delgado q: NOW Start Date: 08/16/19 No administration times (back 96 hours, ahead 96 hours). ------haloperidoL (HALDOL) tablet 5 mg #[id number] Admin Amount: 1 Tab (1 x 5 mg Tab) Ordered Dose: 5 mg Route: Oral Delgado q: ONCE Start Date: 10/30/19 No administration times (back 96 hours, ahead 96 hours). ------cefTRIAXone (ROCEPHIN) 1 g in 0.9% sodium chloride (MBP/ADV) 50 m L M*#[id number] Admin Amount: 1 g Ordered Dose: 1 g Route: IntraVENous Freq: NOW Start Date: 12/05/19 Rate: 100 mL/hr Duration: 30 Minutes Administration linda es (back 96 hours, ahead 96 hours): 12/05/19: 1428NB -----0.9% sodium chloride infusion #[id number] Ordered Dose: 125 mL/hr Route: IntraVENous Freq: CONTINUOUS Start Date: 12/05/19 Rate: 125 mL/hr Duration: Administration times (back 96 hours, ahead 96 hours): 12/05/19: 1408NBMaxwell Bray MR#: [id number] * Rm : 441-01Ht: 5' 5.75" Wt: 300 lb Code: Full Code Iso:Diagnosis:Encephalopathy acute [G93. 40]Allergies: No Known Allergies -------- Current as of: 12/05/19 1807 NB=New Bag --enoxaparin (LOVENOX) injection 40 mg #[id number] Admin Amount: 0.4 mL = 40 mg of 40 mg/0.4 mL Ordered Dose: 40 mg [place]: SubCUTAneous Freq: EVERY 24 HOURS Start Date: 12/05/19 Administration times (back 96 h [facility] [place], [facility] 96 hours): 12/05/19: 209912/06/19: 209912/07/19: 209912/08/19: 2099 ---furosemide (LASIX) injection 20 mg #[id number] Admin Amount: 2 mL = 20 mg of 10 mg/mL Ordered Dose: 20 mg [place]: IntraVENous Freq: ONCE Start Date: 12/05/19 Administration times (back 96 hours, [facility] 96 hours): 12/05/19: 1449 ED Current OP MedicationsrisperiDONE (RisperDAL) 2 mg tabletSig:Take 1 Tab by mouth daily.Dispense Amount:30 TabStart Date:12/04/2019End Date:Doc. Provider: Ritika Toledo MDamitriptyline (ELAVIL) 100 mg tabletSi mg.Dispense Amount:Start Date:11/12/2019End Date:Doc. Provider: Provider, HistoricalVraylar 3 mg capsuleSig:Take 6 mg by mouth [...] With:Ritika Canas MDDetails:Comments:Contact Info:[address] d[address] MOBPaulinafferrussell [id number] Name Value Range Interpretation Code Description Data Melani rce(s) Supporting Document(s ) ID Date Data Source [id number] 12/05/2019 04:36:09 PM EDT [facility] The history is provided by the patient [...] mortality cardiac cath at [facility] approx 6-8 months ag o Other [...] week Gets together: Once a week Attends religion service: More than 4 times per year [...] QTC Calculation (Bezet) 515 ms Calculated P [place] 40 degrees Calculat ed R [place] 41 degrees Calculated T [place] 147 degrees Diagnosis Sinus tachycardiaProb able left [...] Time: 12/05/19 12:38 PMResult Value Ref Range [place] level 1.53 (HH) 0.6 - 1.2 MMOL/LLACTIC ACID Collection Time: 12/04 12:40 PMResult Value Ref Range Lactic acid 1.1 0.4 - 2.0 MMOL/LEKG:Sinus tachy cardia at 100 BPM, normal axis, nothing acute.Interpreted by Julio Manzo MD11:2 0 AM secured entrance monitor reading shows sinus tachycardia at 100 [...] cardiac monitoring, CXR, and head CT. Will senior data scientist ocephin, IV fluids, and oxygen. Will consult [...] Supporting Document(s ) ID Date Data Source [id number] 12/05/2019 04:05:06 PM EDT [facility] [address] [place] [address] [email or web address] CONSULT NOTEPatient: Maxwell Bray Se x: male [...] or sensory fuentes es. Lab significant of [place] 1.53 and elevatedliver enzymes. Neurology consult ed for encephalopathy/drug adverse reaction.Past Medical History:Diagnosis Date Other unknown and unspecified cause of morbidity or mortality cardiac cath at [facility] approx 6-8 months ago Other unknown [...] QTC Calculation (Bezet) 515 ms Calculated P [place] 40 degrees Calculated R [place] 41 degrees Calculated T [place] 147 degrees Diagnosis Sinus tachycardiaProbable left atrial [...] Time: 12/05/19 12:38 PMResult Value Ref Range [place] level 1.53 (HH) 0.6 - 1.2 MMOL/LLACTIC [...] QTC Calculation (Bezet) 515 ms Calculated P [place] 40 degrees Calculat ed R [place] 41 degrees Calculated T [place] 147 degrees Diagnosis Sinus tachycardiaProb able left [...] ulder M79.2 Seizure disorder (HCC) G40.909 Spells [id number] Severe obesity (HCC) E66 .01 Depression F32.9 Anxiety F41.9 Bipolar disorder (HCC) F31.9 Depressive disorde r F32.9 Status post gastric bypass for obesity Z98.84 Morbid obesity (HCC) E66 .01 Mixed anxiety and depressive disorder F41.8 Vitamin D deficiency E55.9 Bipol ar disorder with severe depression (HCC) F31.4 Encephalopathy acute G93.40 Adve rse drug reaction, initial encounter T50.905A Qwe-ascm-xajptjl adverse reaction to me dication T88.7XXA49 year old male with pmh as stated above and now with AMS and genera lizedweakness - most likely secondary to lithium toxicity - ? Seizure.Plan: Mri Brain Ammonia Monitor lithium level daily EEG - 24 hrs Seizure precautionsPaulson Gerald Flores 2019 3:19 [id number] Name Value Range Interpretation Code Description Data Melani rce(s) Supporting Document(s ) ID Date Data Source [id number] 12/05/2019 03:37:[address] [facility] sbar-q given to Ev HERNANDEZ RNAwaiting tr ansport to floor Name Value Range Interpretation Code Description Data Melani rce(s) Supporting Document(s ) ID Date Data Source [id number] 12/05/2019 03:29:57 PM EDT [facility] sbar-q given to Sheri UGALDE on floor Name Value Range Interpretation Code Description Data [facility] Camarilloe(s) Supporting Document(s ) ID Date Data Source [id number] 12/05/2019 03:28:02 PM EDT [facility] History & PhysicalBrian Anam Bray is a [...] h igh dose amytriptylene 200 mg nightly, [place], andVraylar 6 mg. :[place] level on prior admission therapeutic. Patient's wifecontactedthis [...] mortality cardiac cath at [facility] approx 6-8 months ag o Other [...] week Gets together: Once a week Attends religion service: More than 4 times per year [...] mg tablet 200 mg. 11/12/19 Provider, Sneha Campbelllaelizabeth 3 mg capsule Take 6 mg by mouth nightly. Prescription is 6 mg capsuleInd ications: bipolar depression 09/03/19 Provider, Historicallithium carbonate 15 0 mg capsule Take 300 mg by mouth two (2) times daily (withmeals). Other, Phys, MDclonazePAM (KLONOPIN) 2 mg tablet Take 1 mg by mouth two (2) times daily asneeded . Other, PhysMisti Known AllergiesReview of Systems : Unable to [...] Calculati on (Bezet) 515 ms Calculated P [place] 40 degrees Calculated R [place] 41 degrees Elena culated T [place] 147 degrees Diagnosis Sinus tachycardiaProbable left atrial [...] Time: 12/05/19 12:38 PMResult Value Ref Range [place] level 1.53 (HH) 0.6 - 1.2 MMOL/LLACTIC ACID Collection Time: 12/04 12:40 PMResult Value Ref Range Lactic acid 1.1 0.4 - 2.0 MMOL/All lab results for the last 24 hours reviewed. Serun [place] level toxicAssessment/PlanPrinci pal Problem: Adverse drug reaction, initial encounter (12/05/2019) LithiumActive Prob lems: Encephalopathy acute (12/05/2019) Tte-gvux-cepxxkx adverse reaction to med ication (12/05/2019)Neuro, and psych evaluation, hydrationGeorge MD Corey Name Value Range Interpretation Code Description Data Melani rce(s) Supporting Document(s ) ID Date Data Source [id number] 12/06/2019 12:36:10 PM EDT [facility] Name Value Range Interpretation Description Data Sup porting Code Source(s) Document(s ) Service comment [facility] Bacteria [facility] identified in [facility] Unspecified [facility] specimen by Culture ID Date Data Source [id number] 12/05/2019 04:18:26 PM EDT [facility] Name Value Range Interpretation Description Data Sup porting Code Source(s) Document(s ) Color of Urine YEL Abnormal (applies [facility] - to non-numeric Good results) [facility] Appearance of CLEAR Abnormal (applies [facility] - Urine to non-numeric Good results) [facility] Specific gravity 1.033 1.003-1. Above high normal [facility] - of Urine by 030 Good Refractometry [facility] pH of Urine by 5.5 4.6-8.0 [facility] - Test strip [facility] Protein 30 mg/dL NEG Abnormal (applies [facility] - [Mass/volume] in to non-numeric Good Urine by Test results) [facility] Glucose NEG [facility] - [Mass/volume] in Good Urine by [facility] Automated test Hospital strip Ketones 15 mg/dL NEG Abnormal (applies [facility] - [Presence] in to non-numeric Good Urine by results) [facility] Automated test [facility] strip Bilirubin.total NEG Abnormal (applies [facility] - [Presence] in to non-numeric Good Urine results) [facility] Hemoglobin NEG [facility] - [Presence] in Good Urine by Test [facility] Urobilinogen 1.0 0.2-1.0 [facility] - [Presence] in EU/dL Good Urine by [facility] Automated test Hospital strip Nitrite NEG [facility] - [Presence] in Good Urine by [facility] Automated test Hospital strip Leukocyte NEG [facility] - esterase Good [Presence] in [facility] Urine by Hospital Automated test strip Leukocytes 0-5 [facility] - [Presence] in Good Urine sediment [facility] by Light [facility] microscopy Erythrocytes 0-2 [facility] - [#/area] in Good Urine sediment [facility] by [facility] high power field Epithelial cells 0-10 [facility] - [#/area] in Good Urine sediment [facility] by [facility] high power field Bacteria NONE Abnormal (applies [facility] - [Presence] in to non-numeric Good Urine sediment results) [facility] microscopy ID Date Data Source [id number] 12/05/2019 03:26:35 PM EDT [facility] Name Value Range Interpretation Description Data Sup porting Code Source(s) Document(s ) Bilirubin NEG [facility] - Good [Presence] in [facility] by Hospital Confirmatory method ID Date Data Source [id number] 12/05/2019 02:22:27 PM EDT [facility] I spoke to Dr. Canas regarding Observation Status. Dr. Canas said patient will bemade In Patient Status today. Name Value Range Interpretation Code Description Data Melani rce(s) Supporting Document(s ) ID Date Data Source [id number] 12/05/2019 02:03:27 PM EDT [facility] SW/Psych Screener attempted to meet with Pt for MH evaluation. Pt was foundlying on stretcher with his eyes open, staring at the wall. Senior Web Analyst knows this Ptfrom previous admission to the medical floor. When ask ed if Pt rememberedwriter, Pt appeared confused, but said he did. Pt stated he fell today, doesn'tremember how he was brought to the hospital. Pt appeared to be searching for hiswords and was having difficulty speaking. Pt unclear of where he is, [place] when asked where he was and [place]" when asked what month it was. Whenasked if Pt was exhibiting any feelings of S/I, H/I or A/V Hallucinatio ns, Ptresponded with, "No," and confirmed he has been compliant with his psychiatricm edications. Senior Web Analyst conferred with ER Attending, Dr. Manzo, who states that Ptwi ll most likely be medically admitted at this time.Krystina Centeno, [facility], [facility] Name Value Range Interpretation Code Description Data Melani rce(s) Supporting Document(s ) ID Date Data Source [id number] 12/05/2019 12:53:37 PM EDT [facility] CT HEAD W/O CONTRASTPRIOR: Multiple: Mos t [...] Supporting Document(s ) ID Date Data Source [id number] 12/05/2019 01:31:37 PM EDT [facility] Name Value Range Interpretation Description Data Sup porting Code Source(s) Document(s ) Lactate 1.1 0.4-2.0 [facility] - Good [Moles/volu MMOL/L [facility]] in Hospital Serum or Plasma ID Date Data Source [id number] 12/10/2019 05:19:22 AM EDT [facility] Name Value Range Interpretation Description Data Sup porting Code Source(s) Document(s ) Service comment [facility] Bacteria [facility] identified in [facility] specimen by Culture ID Date Data Source [id number] 12/05/2019 02:14:34 PM EDT [facility] Name Value Range Interpretation Description Data Sup porting Code Source(s) Document(s ) [place] 1.53 0.6-1.2 Above upper panic [facility] - Good [Moles/volu MMOL/L limits [facility]] in Hospital Serum or Plasma CALLED TO AND READ BACK BYSUSI GAMBLE 1414 12/05/19 [facility] ID Date Data Source [id number] 12/05/2019 01:31:37 PM EDT [facility] Name Value Range Interpretation Description Data Sup porting Code Source(s) Document(s ) Troponin 0.00-0.05 [facility] - Good I.cardiac [facility] [Mass/volume Hospital ] in Serum or Plasma [...] to 1.50 ng/mL ID Date Data Source [id number] 12/05/2019 01:31:37 PM EDT [facility] Name Value Range Interpretation Description Data Sup porting Code Source(s) Document(s ) Sodium 134 136-145 Below low normal [facility] - Good [Moles/volume] mmol/L [facility] in Serum or Hospital Plasma Potassium 3.5 3.5-5.1 [facility] - Good [Moles/volume] mmol/L [facility] in Serum or Hospital Plasma Chloride 104 98-107 [facility] - Good [Moles/volume] mmol/L [facility] in Serum or Hospital Plasma Carbon 26 21-32 [facility] - Good dioxide, total mmol/L [facility] [Moles/volume] Hospital in Serum or Plasma Anion gap in 7 mmol/L 10-20 Below low normal [facility] - Go od Serum or [facility] Plasma Hospital Glucose 127 74-106 Above high normal [facility] - Good [Mass/volume] mg/dL [facility] in Serum or Hospital Plasma Urea nitrogen 21 mg/dL 7-18 Above high normal [facility] - Good [Mass/volume] [facility] in Serum or Hospital Plasma Creatinine 0.94 0.70-1.3 [facility] - Good [Mass/volume] mg/dL 0 [facility] in Serum or Hospital Plasma Glomerular >60 [facility] - Good filtration [facility] rate/1.73 sq M Hospital predicted among blacks [Volume Rate/Area] in Serum or Plasma by Creatinine-bas ed formula (MDRD) Glomerular >60 [facility] - Good filtration [facility] rate/1.73 sq M Hospital predicted among non-blacks [Volume Rate/Area] in Serum or Plasma by Creatinine-bas ed formula (MDRD) (NOTE)Estimated GFR is calculated using the Modification of Diet in RenalDisease (MDRD) Study equation, reported for both Americans(GFRAA) and non- Americans (GFRNA), and normalized to 1.7 9c6iiiz surface area. The physician must decide which [...] normal [facility] - Good Serum or Plasma [facility] ital Bilirubin.total 0.9 mg/dL 0.2-1.0 [facility] - Good [Mass/volume] in Serum or [facility] Plasma Alanine aminotransferase 34 U/L 13-61 [facility] - Good [Enzymatic activity/volume] [facility] in Serum or Plasma Aspartate aminotransferase 47 U/L 15-37 Above high [facility] - Good [Enzymatic activity/volume] normal [facility] in Serum or Plasma by With P-5'-P Alkaline phosphatase 171 U/L 45-117 Above high [facility] - Good [Enzymatic activity/volume] normal [facility] in Serum or Plasma Protein [Mass/volume] in 7.5 g/dL 6.4-8.2 [facility] - Good Serum or Plasma [facility] ital Albumin [Mass/volume] in 3.8 g/dL 3.5-4.7 [facility] - Good Serum or Plasma by [facility] ostal Bromocresol purple (BCP) dye binding method Globulin [Mass/volume] in 3.7 g/dL 1.7-4.7 [facility] - Good Serum by calculation [facility] Albumin/Globulin [Mass 1.0 0.7-2.8 [facility] - Good Ratio] in Serum or Plasma [facility] ID Date Data Source [id number] 12/05/2019 01:31:37 PM EDT [facility] - Good [facility] Name Value Range Interpretation Description Data Sup porting Code Source(s) Document(s ) Magnesium 2.9 mg/dL 1.6-2.6 Above high normal [facility] - Good [Mass/volume] [facility] in Serum or [facility] Plasma ID Date Data Source [id number] 12/05/2019 01:20:04 PM EDT [facility] - Good [facility] Name Value Range Interpretation Description Data Sup porting Code Source(s) Document(s ) Prothrombin 10.6 sec 9.4-11.1 [facility] - Good time (PT) [facility] INR in 1.0 0.8-1.2 [facility] - Good Platelet poor [facility] plasma by Hospital Coagulation assay ID Date Data Source [id number] 12/05/2019 01:07:21 PM EDT [facility] - [facility] Name Value Range Interpretation Description Data Sup porting Code Source(s) Document(s ) Leukocytes 12.4 4.8-10.6 Above high normal [facility] - [#/volume] in K/uL [facility] Blood by [facility] Automated count [facility] Erythrocytes 5.03 4.70-6.0 [facility] - [#/volume] in M/uL 0 Good Blood by [facility] Automated count [facility] Hemoglobin 15.4 14.0-18. [facility] - [Mass/volume] in g/dL 0 [facility] Blood [facility] Hematocrit 45.8 % 42.0-52. [facility] - [Volume 0 Good Fraction] of [facility] Blood by Hospital Automated count Erythrocyte mean 91.1 FL 81.0-94. [facility] - corpuscular 0 Good volume [Entitic [facility] volume] by Hospital Automated count Erythrocyte mean 30.6 PG 27.0-35. [facility] - corpuscular 0 Good hemoglobin [facility] [Entitic mass] Hospital by Automated count Erythrocyte mean 33.6 30.7-37. [facility] - corpuscular g/dL 3 Good hemoglobin [facility] concentration [facility] [Mass/volume] by Automated count Erythrocyte 12.9 % 11.5-14. [facility] - distribution 0 Good width [Ratio] by [facility] Platelets 164 K/uL 130-400 [facility] - [#/volume] in Good Blood by [facility] Automated [facility] [place] [place] Platelet mean 9.5 FL 9.2-11.8 [facility] - volume [Entitic Good volume] in Blood [facility] by Automated Hospital count Nucleated 0.0 PER 0 [facility] - erythrocytes/100 100 WBC Good leukocytes [facility] [Ratio] in Blood Hospital Nucleated 0.00 0.0-0.01 [facility] - erythrocytes K/uL Good [#/volume] in [facility] Segmented 80 % 48.0-72. Above high normal [facility] - neutrophils/100 0 Good leukocytes in [facility] Lymphocytes/100 8 % 18.0-40. Below low normal [facility] - leukocytes in 0 Good Blood [facility] Monocytes/100 10 % 2.0-12.0 [facility] - leukocytes in [facility] Eosinophils/100 1 % 0.0-7.0 [facility] - leukocytes in [facility] Basophils/100 0 % 0.0-3.0 [facility] - leukocytes in [facility] Immature 0 % 0-0.5 [facility] - granulocytes/100 Good leukocytes in [facility] by [facility] Automated count Segmented 10.0 2.3-7.6 Above high normal [facility] - neutrophils K/UL Good [#/volume] in [facility] Lymphocytes 1.0 K/UL 0.9-4.2 [facility] - [#/volume] in [facility] Monocytes 1.2 K/UL 0.1-1.7 [facility] - [#/volume] in [facility] Eosinophils 0.1 K/UL 0.0-1.0 [facility] - [#/volume] in [facility] Basophils 0.0 K/UL 0.0-0.4 [facility] - [#/volume] in [facility] Immature 0.1 K/UL 0.0-0.17 [facility] - granulocytes Good [#/volume] in [facility] Automated count Differential [facility] - cell count [facility] ID Date Data Source [id number] 12/10/2019 05:19:23 AM EDT [facility] Name Value Range Interpretation Description Data Sup porting Code Source(s) Document(s ) Service comment [facility] Bacteria [facility] identified in [facility] specimen by Culture ID Date Data Source [id number] 12/05/2019 12:24:35 PM EDT [facility] PELVIS one view.History: TraumaThe study is suboptimal due to the patient's body habitus.There is no evidence of fracture , dislocation, subluxation, bone erosion orarthritis.IMPRESSION: Grossly normal s tudy. Signing date/time: 12/05/2019 12:24 PMSigned by: CURTIS VARMA Name Value Range Interpretation Code Description Data Melani rce(s) Supporting Document(s ) ID Date Data Source [id number] 12/05/2019 12:23:11 PM EDT [facility] CHEST 1 view (s)HISTORY: Chest pain.COMP ARISON: [...] Supporting Document(s ) ID Date Data Source [id number] 12/05/2019 11:34:39 AM EDT [facility] BIBA for fall in the middle of the night while going to bathroomC/p left hip pain Name Value Range Interpretation Code Description Data Melani rce(s) Supporting Document(s ) ID Date Data Source [id number] 12/05/2019 11:21:27 AM EDT [facility] Please enter the current weight for this patient in [facility]. Thank you. Name Value Range Interpretation Code Description Data Melani rce(s) Supporting Document(s ) ID Date Data Source [id number] 11/23/2019 02:02:47 PM EDT [facility] Discharge SummaryPatient: Maxwell Mendieta Xiao mackey Sex: male DOA: 10/[birth year]2019Date of : [...] E66.01ICD-9-CM: 278.01 07/19/2018 - Present Spells ICD-10-CM: [id number]: IMO00 01 04/08/2016 - Present Seizure disorder [...] tr eated with parenteral hydration with benefit p6jxabthtteqzacblti responses. Of note i s fact that patient was scheduled to begin ECTtreatment for depression when Covid 1 9 pandemic curtained this plan.Consults: PsychiatrySignificant Diagnostic Studies : labs: microbiology: , radiology: and cardiacgraphics:Discharge Medications: @DISCHARGEMEDLIST@Activity: Activity as toleratedDiet: Resume previous dietWound Care: None neededFollow-up: This examiner to follow in officeRitika Canas MD Name Value Range Interpretation Code Description Data [facility](s) Supporting Document(s ) ID Date Data Source [id number] 11/03/2019 09:41:35 PM EDT [facility] Verbal shift change report given to , RN (oncoming nurse) by Scott Beverly RN (offgoing nurse). Report included the fo llowing information SBAR, Kardex,Intake/Output, MAR and Recent Res ults. Name Value Range Interpretation Code Description Data [facility](s) Supporting Document(s ) ID Date Data Source [id number] 11/03/2019 03:34:07 PM EDT [facility] Per psych note, CM to confirm patient ap pt with psychiatristCall to Dr Mateo Méndez office # [phone], office closedPati ent aware of # to call to make his own appt, psychiatry info placed on [facility] ent states his will be coming [...] Network: Lives with Spouse, Own Home( [place] [phone])Confirm Follow Up Transport: FamilyThe Patient and/or Patient [...] Supporting Document(s ) ID Date Data Source [id number] 11/03/2019 02:45:48 PM EDT [facility] PHYSICAL THERAPY TREATMENTPatient: Maxwell Bray (49 y.o. [...] Supporting Document(s ) ID Date Data Source [id number] 11/03/2019 01:09:[address] [facility] General Daily Progress NoteAdmit Date: Hospital [...] past 8 hrs: BP Temp Pulse Resp LeJ99311/03/19 0752 115 /76 97.6 F (36.4 C) [...] Supporting Document(s ) ID Date Data Source [id number] 11/03/2019 10:52:30 AM EDT [facility] S/O patient has seen for follow up via V ide[employer] . He is doing much better. Hedenies any auditory or visual hallucination any mor eHe has no suicidal or homicidal thoughtsHe reports that he sees Dr. marie every ot her weeksPt wants to follow up with Dr. Marie after dischargePlan continue on a ll current psychotropic medications Requesting case fitter to confirm his a ppointment with Dr. mariebefore he discharged Please re consult if n eeded Name Value Range Interpretation Code Description Data Melani rce(s) Supporting Document(s ) ID Date Data Source [id number] 11/03/2019 07:12:34 AM EDT [facility] Bedside and Verbal shift change report cristi bolanos to Meño Rose RN (oncomingnurse) by June Ochoa RN (offgoing nurse). Repor t included the followinginformation SBAR, Kardex, Intake/Output, MAR, Recent Resul ts and Med Rec Status. Name Value Range Interpretation Code Description Data Melani rce(s) Supporting Document(s ) ID Date Data Source [id number] 11/02/2019 11:18:25 PM EDT [facility] Problem: Falls - Risk ofGoal: *Absence o [...] Supporting Document(s ) ID Date Data Source [id number] 11/02/2019 07:34:02 PM EDT [facility] Bedside shift change report given to GILLIAN KEATING (oncoming nurse) by Meño Rose(offgoing nurse). Report included the following information SBAR, Kardex andIntake/Output. Name Value Range Interpretation Code Description Data [facility] rce(s) Supporting Document(s ) ID Date Data Source [id number] 11/02/2019 05:14:50 PM EDT [facility] Telehealth Progress NotePursuant to the emergency declaration [...] [] Telephone [x] VideoconferenceDate: 11/02/2019Account Franny mber: [id number]: Maxwell Robin [employer] Joe PROGRESS NOTE:Coordinated treatment team rounds conducted with psychiatrist, patient, nursesand/or executive secretary social welfare present ; dis cussions held with case fitter and/or familymembers; Chart reviewed in full in cluding home energy consultant notes, ancillary staffnotes, vitals and labs in [facility] EMR reviewed in full.SUBJECTIVE: Pt seen for first time on Video with my TERRY Mendy And RN , hereports less hallucinations , as they are still there in the morning But overall better since got back on vraylar told me was scheduled for ECT at [facility] but due to elective , it [...] past 8 hrs: Temp Pulse Resp BP NlY970/20 1546 98.3 F (36.8 C) 84 18 [...] (LOVENOX) injection 40 mg 40 mg SubCUTAneous [id number] Medications:C urrent Facility-Administered MedicationsMedication Dose Route Frequen [...] ENOX) injection 40 mg 40 mg SubCUTAneous G36RSREFRCVHXH/PLAN:Continue current kalie atment as pt is stabalizingPatient [...] during coordinated treatment rounds and discussed withpam sieegl psychiatrist who concurs with above.Iglesia Frazier MD11/02/20195:06 PM Name Value Range Interpretation Code Description Data Melani rce(s) Supporting Document(s ) ID Date Data Source [id number] 11/02/2019 03:02:[address] [facility] General Daily Progress NoteAdmit Date: Hospital [...] (LOVENOX) injection 40 mg 40 mg SubCUTAneous S42JYmmuqdbqy:Patient Vitals for the past 8 hrs: BP Temp Pulse Resp S pO205/04/13 0748 120/85 98.2 F (36.8 C) 75 [...] Sagittal and coronal reconstruction was performed.Uti lizing classroom technology coach algorithm the examination was performed to optimizeimaging [...] Value Range Interpretation Code Description Data [facility](s) Supporting Document(s ) ID Date Data Source [id number] 11/02/2019 07:48:14 AM EDT [facility] Verbal shift change report given to Jody wells RN (oncoming nurse) by Juliane UGALDE (offgoing nurse). Report included the following information SBAR,Kardex, Intake/Output, MAR and Recent Results Name Value Range Interpretation Code Description Data [facility]s) Supporting Document(s ) ID Date Data Source [id number] 11/02/2019 05:41:52 AM EDT [facility] Patient AOX3 with periodic confusion. In bed watching TV. All med's given asordered by , tolerated well. Fall precaution m easures reinforced. Call bellwithin reach, bed in low position. Has urinal and comm ode at bedside. Voices nocomplaint at this time. Will continue to monitor pt. Name Value Range Interpretation Code Description Data [facility]s) Supporting Document(s ) ID Date Data Source [id number] 11/01/2019 08:46:30 PM EDT [facility] Problem: Falls - Risk ofGoal: *Absence o [...] Supporting Document(s ) ID Date Data Source [id number] 11/01/2019 08:00:[address] [facility] Verbal shift change report given to Ly vitale RN (oncoming nurse) by SUSI Palacio (offgoing nurse). Report included the following information SBAR,Intake/Output, MAR and Recent Results. Name Value Range Interpretation Code Description Data Melani rce(s) Supporting Document(s ) ID Date Data Source [id number] 11/01/2019 03:49:42 PM EDT [facility] Adult Progress NoteDate: 11/01/2019Account Number: [id number]: Maxwell Mendieta TrimbleDiagnosis: History of mood and [...] On e Bipolar disorder with severe depression ([facility]) 10/29/2019 Mixed anxiety and depr essive disorder 09/04/2019 Vitamin D deficiency 09/04/2019 Anxiety 0 Bipolar disorder ([facility]) 07/21/2019 Depressive disorder 07/21/2019 Status p ost gastric bypass for obesity 07/21/2019 Morbid obesity ([facility]) 07/21/2019 Severe obesity ([facility]) 07/19/2018 Spells 04/08/2016 Seizure disorder ([facility]) 04/30/2014 Insom kacey 11/04/2013 H/O [...] (LOVENOX) injection 40 mg 40 mg SubCUTAneous [id number] following information was reviewed and discussed: Patient [...] Supporting Document(s ) ID Date Data Source [id number] 11/01/2019 02:42:[address] [facility] General Daily Progress NoteAdmit Date: Hospital [...] past 8 hrs: BP Temp Pulse Resp SbQ71111/01/19 0715 101/67 98 F (36.7 C) 70 [...] Sagittal and coronal reconstr uction was performed.Utilizing classroom technology coach algorithm the examination was performed to optimizeimaging [...] 10/29/2019XR CHEST PORT CLINICAL INDICATION PROVIDED:. "ams." KRISTY MERIDA.: 1 views, chest.COMPARISON:. 08/16/2019. FINDINGS:. The patient has ta shelby a shallow inspirationon the present exam. Increased interstitial markings in both lungs may reflectvascular crowding in the setting of low lung volumes. There is no lobarconsolidation or large effusion. There is no pneumothorax.IMPRESSION:. No acute pulmonary process. Prominent interstitial markings arefelt to reflect vascular microarray specialist 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 Repeat PA andlateral views the chest are advised i f there is clinical concern for pneumoniaor congestive failure.Assessment:Active Pro blems: Bipolar disorder with severe depression (HCC) (10/29/2019)Plan:Improvin g status Name Value Range Interpretation Code Description Data [facility](s) Supporting Document(s ) ID Date Data Source [id number] 11/01/2019 07:08:12 AM EDT [facility] Verbal shift change report given to Chandrakant Albert RN (oncoming nurse) byMelanie Hoffmann RN (offgoing nurse). Report incl uded the following informationSBAR, Kardex, Intake/Output, MAR and Recent Results. Name Value Range Interpretation Code Description Data [facility](s) Supporting Document(s ) ID Date Data Source [id number] 10/31/2019 07:59:03 PM EDT [facility] Verbal shift change report given to Shreya adrian RN (oncoming nurse) by SUSI Palacio (offgoing nurse). Report included the following information SBAR,Kardex, Intake/Output, MAR and Recent Results. Name Value Range Interpretation Code Description Data [facility](s) Supporting Document(s ) ID Date Data Source [id number] 10/31/2019 05:09:32 PM EDT [facility] Telehealth ConsultationPursuant to the e mergency declaration [...] [] Telephone [x] VideoconferenceSubjective:Patient: Maxwell BrayN #: [id number]: [id number]: 49 y.o. Sex: maleAdm it Date: 10/29/2019Attending: [...] week Gets together: Once a week Attends religion service: More than 4 times per year [...] ity cardiac cath at [facility] approx 6-8 months ago Other unknown [...] past 8 hrs: BP Temp Pulse Resp PlP29310/31/19 0754 120/60 97.2 F (36.2 C) 70 20 95 %MENTA L STATUS EXAM:FINDINGS WITHIN NORMAL LIMITS (WNL) UNLESS OTHERWISE STATED BELOW:Sens orium [id number] Well relatedAppearance: OverweightMotor Behavior: Not examined Speech: [...] Supporting Document(s ) ID Date Data Source [id number] 10/31/2019 04:37:18 PM EDT [facility] - [place] [address] [place], [place] [address]SEEINUC: MAXWELL BRAYMRN: [id number]: [id number]#: [id number] DATE: 10/29/2019 CONSULTATIONHISTORY OF PRESENT ILLNESS: The [...] HISTORY: Cardiac cath at [facility] six to eight months ago, concussions,periodic [...] back to his psychiatrist in the commu [facility].Cognitively,he seems to be fair. His memory [...] RONAL AGUIRRE, MDDD: 10/30/2019 14:44:41/BR /[id number] / [id number] Name Value Range Interpretation Code Description Data Melani rce(s) Supporting Document(s ) ID Date Data Source [id number] 10/31/2019 01:47:[address] [facility] General Daily Progress NoteAdmit Date: Hospital [...] Supporting Document(s ) ID Date Data Source [id number] 10/31/2019 12:59:26 PM EDT [facility] physical Therapy TREATMENTPatient: Maxwell Bray (49 y.o. [...] care was discussed vijay h: Registered Nadia Enrique PT,DPT Time Calculation: 24 mins Name Value Range Interpretation Code Description Data Melani rce(s) Supporting Document(s ) ID Date Data Source [id number] 10/31/2019 07:10:46 AM EDT [facility] Bedside and Verbal shift change report g cici to Samy UGALDE (oncoming nurse)by Cristofer Valenzuela RN (offgoing nurse). Repo rt included the following information SBAR, Kardex, MARand Recent Results. Name Value Range Interpretation Code Description Data Melani rce(s) Supporting Document(s ) ID Date Data Source [id number] 10/30/2019 11:27:14 PM EDT [facility] Problem: Falls - Risk ofGoal: *Absence o [...] Supporting Document(s ) ID Date Data Source [id number] 10/30/2019 08:09:55 PM EDT [facility] Susi Garcia called as pt has been [...] Supporting Document(s ) ID Date Data Source [id number] 10/30/2019 08:06:30 PM EDT [facility] Telephoned Dr. Oc tompkins pt's c/o new sy mptoms of hallucinations. Orderedreceived, relayed to RN, SUSI Marroquin on design supervisor Name Value Range Interpretation Code Description Data Melani rce(s) Supporting Document(s ) ID Date Data Source [id number] 10/30/2019 08:01:35 PM EDT [facility] Verbal shift change report given to Cecilia wells (oncoming nurse) by Samy Albert RN (offgoing nurse). Report included the fo llowing information SBAR, ProcedureSummary, Intake/Output, MAR and Recent Results. Name Value Range Interpretation Code Description Data Melani rce(s) Supporting Document(s ) ID Date Data Source [id number] 10/30/2019 02:58:51 PM EDT [facility] Problem: Mobility Impaired (Adult and Pe diatric)Goal: [...] of morbidity or mortality cardiac cath at [facility] approx 6-8 months ago Other unknown [...] Home: NoneCritical Behavior:Neurologic State: AlertOrientation Level: Oriented [id number]: Appropriate for age attention/concentrationSafety/Judgement: Awareness of environmentSkin:Strength:Strength: [...] Supporting Document(s ) ID Date Data Source [id number] 10/30/2019 02:50:37 PM EDT [facility] Telehealth ConsultationPursuant to the e mergency declaration [...] [] Telephone [] VideoconferenceSubjective:Patient: Maxwell BrayMRN #: [id number]: [id number]: 49 y.o. Sex: maleAdm it Date: 10/29/2019Attending: [...] Supporting Document(s ) ID Date Data Source [id number] 10/30/2019 02:06:26 PM EDT [facility] Care Management InterventionsPCP Verifie d by CM: YesPalliative Care Criteria Met (RRAT>21 & CHF Dx)?: NoMode of Transport at Discharge: Other (see comment)(family)Transition of Care Consu lt (CM Consult): Discharge PlanningPhysical Therapy Consult: NoOccupational Therapy Consult: NoSpeech Therapy Consult: NoCurrent Support Network: Lives with Spouse, Own Home( [place] [phone])Confirm Foll ow Up Transport: FamilyThe Patient and/or Patient Seed Laboratory Assistant was Provided with a Choice of Providerand [...] home with his , is completely independent [employer], nohome DME. Patient normally works (pre-covid) and drives. CM dept roleexplained, patient is currently denying any HC or rehab needs and states hiswife will drive him home upon DC. PT eval is ordered and pending. CM dept laila lfollow if patient has any PT needs.CASE MANAGEMENT PSYCHOSOCIAL ASSESSMENTMaxwell Bray Admission Date: 10/29/2019MRN: [id number] of : 1970Current date: 10/30/2019DISCHARGE PLAN: homePatient Info rmation:Patients Preferred Name: Tim Arrived Via: StretcherTransferred [facility] a [facility] facility: NoInformation Obtained From: PatientPatient Objects to Receiving Bloo d: NoMRSA Assessment: Not applicableAuditory Impairment: NoneRetired Read Only-Readmi t Risk ToolSupport Systems: Family member(s)History of Falls Within Past 3 Months: NoNeeds Assistance with Wound Care AND/OR Mgnt of O2, Nebulizer: NoRequires Financial, Physical and/or Educational Assistance With Medications: NoHistory o f Mental Illness: NoLiving Alone: NoPCP: Ritika Caans MDAdmitting Provider: Cristi Canas M[facility] [employer]: naPayor: Payor: [facility] HEALTH [facility] / Plan: [facility] HEALTH PLAN /Product Type: O /[facility] Payor: @[facility]ITALGROUPNAME@Bipolar disorder with severe depression (HCC) [F 31.4]Bipolar disorder with severe depression (HCC) [F31.4]Patient Active Problem List Diagnosis Code H/O gastric bypass Z98.84 Insomnia G47.00 Neuropathic pain of surekha glover M79.2 Seizure disorder ([facility]) G40.909 Spells R68.89 Severe obesity ([facility]) E66. 01 Depression F32.9 Anxiety F41.9 Bipolar disorder ([facility]) F31.9 Depressive disorde r F32.9 Status post gastric bypass for obesity Z98.84 Morbid obesity ([facility]) E66 .01 Mixed anxiety and [...] solving and planning: Notes:Adeq uate coping skills: Notes:Gnosticist/Cultural barriers: Notes:If unable to assess or n ot applicable: Notes:Suicide Assessment:Primary Diagnosis or Primary Complaint of an Emotional Behavior Disorder: NoPatient is Currently Experiencing Depr ession: NoSuicidal Ideation/Attempts: NoHomicidal Ideation/Attempts: NoAlcohol /Drug Intoxication: NoHallucinations/Delusions: NoPending, A ctive, or Temporary Senior Living Orders: NoAggressive/Inappropriate Behavior: NoR eadmit Risk:Support Systems: Family member(s)Advanced Care Planning:Confirm Advance Directive: NoneDiscussed with the patient and all questions fully answered . He will call me ifany problems arise. Name Value Range Interpretation Code Description Data Melani rce(s) Supporting Document(s ) ID Date Data Source [id number] 10/30/2019 12:38:13 PM EDT [facility] General Daily Progress NoteAdmit Date: Hospital day: .tdSubjective:Patient markedly improved this am, speech now no rmal. Denies possibleinadvertent overdose of chronic meds. Accepting of psych consult . PT toevaluate. Claims symptoms of mild nausea. Meds reviewed claims to be takin gElavil G 150 mg HS ,Klonopin 1 mg twice a day, [place] 300 twice daily, Vraylar3 m g dailyCurrent [...] past 8 hrs: BP Temp Pulse Resp OaS86810/30/19 0727 (!) 130/96 98 F (36.7 C) [...] Supporting Document(s ) ID Date Data Source [id number] 10/30/2019 07:52:[address] [facility] Verbal shift change report given to Chandrakant nemarie RN (oncoming nurse) byJosemarlie RN (offgoing nurse). [facility] SBAR,Kardex, Procedure Summary, Intake/Output, MAR and Recent R esults. Name Value Range Interpretation Code Description Data Melani rce(s) Supporting Document(s ) ID Date Data Source [id number] 10/30/2019 06:40:05 AM EDT [facility] Pt. AOX3, periodic confusion. Commode an d urinal at bedside. Seizure and fallprecaution measures in place. Voice s no complaint during shift . Name Value Range Interpretation Code Description Data Melani rce(s) Supporting Document(s ) ID Date Data Source [id number] 10/30/2019 07:29:12 AM EDT [facility] Name Value Range Interpretation Description Data Sup porting Code Source(s) Document(s ) Sodium 139 136-145 [facility] - Good [Moles/volume] mmol/L [facility] in Serum or Hospital Plasma Potassium 3.6 3.5-5.1 [facility] [Moles/volume] mmol/L [facility] in Serum or Hospital Plasma Chloride 110 98-107 Above high normal [facility] - [facility] [Moles/volume] mmol/L [facility] in Serum or Hospital Plasma Carbon 24 21-32 [facility] - [facility] dioxide, total mmol/L [facility] [Moles/volume] Hospital in Serum or Plasma Anion gap in 9 mmol/L 10-20 Below low normal [facility] - Go od Serum or [facility] Plasma Hospital Glucose 96 mg/dL 74-106 [facility] [Mass/volume] [facility] in Serum or Hospital Plasma Urea nitrogen 10 mg/dL 7-18 [facility] [Mass/volume] [facility] in Serum or Hospital Plasma Creatinine 0.81 0.70-1.3 [facility] [Mass/volume] mg/dL 0 [facility] in Serum or Hospital Plasma Glomerular >60 [facility] - Good filtration [facility] rate/1.73 sq M Hospital predicted among blacks [Volume Rate/Area] in Serum or Plasma by Creatinine-bas ed formula (MDRD) Glomerular >60 [facility] - Good filtration [facility] rate/1.73 sq M Hospital predicted among non-blacks [Volume Rate/Area] in Serum or Plasma by Creatinine-bas ed formula (MDRD) Calcium 8.2 8.5-10.1 Below low normal [facility] Good [Mass/volume] mg/dL [facility] in Serum or Hospital Plasma ID Date Data Source [id number] 10/30/2019 07:05:07 AM EDT [facility] - Good [facility] Name Value Range Interpretation Description Data Sup porting Code Source(s) Document(s ) Leukocytes 4.8 K/uL 4.8-10.6 [facility] - [#/volume] in Good Blood by [facility] Automated count Hospital Erythrocytes 4.59 4.70-6.0 Below low normal [facility] - [#/volume] in M/uL 0 Good Blood by [facility] Automated count [facility] Hemoglobin 14.0 14.0-18. [facility] - [Mass/volume] in g/dL 0 Good Blood [facility] Hematocrit 42.7 % 42.0-52. [facility] - [Volume 0 Good Fraction] of [facility] Blood by Hospital Automated count Erythrocyte mean 93.0 FL 81.0-94. [facility] - corpuscular 0 Good volume [Entitic [facility] volume] by [facility] Automated count Erythrocyte mean 30.5 PG 27.0-35. [facility] - corpuscular 0 Good hemoglobin [facility] [Entitic mass] Hospital by Automated count Erythrocyte mean 32.8 30.7-37. [facility] - corpuscular g/dL [address] [facility] [Mass/volume] by Automated count Erythrocyte 13.3 % 11.5-14. [facility] - distribution 0 Good width [Ratio] by [facility] Automated count [facility] Platelets 159 K/uL 130-400 [facility] - [#/volume] in Good Blood by [facility] Automated count [facility] Platelet mean 8.6 FL 9.2-11.8 Below low normal [facility] - volume [Entitic Good volume] in Blood [facility] by Automated Hospital count Nucleated 0.0 PER 0 [facility] - erythrocytes/100 100 WBC Good leukocytes [facility] [Ratio] in Blood [facility] Nucleated 0.00 0.0-0.01 [facility] - erythrocytes K/uL Good [#/volume] in [facility] Blood [facility] Segmented 54 % 48.0-72. [facility] - neutrophils/100 0 Good leukocytes in [facility] Lymphocytes/100 32 % 18.0-40. [facility] - leukocytes in 0 [facility] Monocytes/100 9 % 2.0-12.0 [facility] - leukocytes in [facility] Eosinophils/100 5 % 0.0-7.0 [facility] - leukocytes in [facility] Basophils/100 1 % 0.0-3.0 [facility] - leukocytes in [facility] Immature 0 % 0-0.5 [facility] - granulocytes/100 Good leukocytes in [facility] by [facility] Automated count Segmented 2.6 K/UL 2.3-7.6 [facility] - neutrophils Good [#/volume] in [facility] Lymphocytes 1.5 K/UL 0.9-4.2 [facility] - [#/volume] in [facility] Monocytes 0.4 K/UL 0.1-1.7 [facility] - [#/volume] in [facility] Eosinophils 0.2 K/UL 0.0-1.0 [facility] - [#/volume] in [facility] Basophils 0.0 K/UL 0.0-0.4 [facility] - [#/volume] in [facility] Immature 0.0 K/UL 0.0-0.17 [facility] - granulocytes Good [#/volume] in [facility] Automated count Differential [facility] - cell count [facility] method [facility] ID Date Data Source [id number] 10/29/2019 07:40:21 PM EDT [facility] Verbal shift change report given to Wai rogers RN(oncoming nurse) by Elizabeth Meehan RN (offgoing nurse). Report included the fo llowing information SBAR, Kardex, EDSummary, Intake/Output, MAR and Recent Results. Name Value Range Interpretation Code Description Data Melani rce(s) Supporting Document(s ) ID Date Data Source [id number] 10/30/2019 06:54:22 PM EDT [facility] Name Value Range Interpretation Description Data Sup porting Code Source(s) Document(s ) Color of Urine YEL [facility] Appearance of CLEAR [facility] - Urine [facility] Specific gravity 1.015 1.003-1. [facility] - of Urine by 030 Good Refractometry [facility] pH of Urine by 6.0 4.6-8.0 [facility] - Test strip [facility] Protein NEG [facility] - [Mass/volume] in Good Urine by Test [facility] Glucose NEG [facility] - [Mass/volume] in Good Urine by [facility] Automated test Hospital strip Ketones NEG [facility] - [Presence] in Good Urine by [facility] Automated test Hospital strip Bilirubin.total NEG [facility] - [Presence] in Good Urine [facility] Hemoglobin NEG [facility] - [Presence] in Good Urine by Test [facility] Urobilinogen 1.0 0.2-1.0 [facility] - [Presence] in EU/dL Good Urine by [facility] Automated test Hospital strip Nitrite NEG [facility] - [Presence] in Good Urine by [facility] Automated test Hospital strip Leukocyte NEG [facility] - esterase Good [Presence] in [facility] Urine by Hospital Automated test strip ID Date Data Source [id number] 10/29/2019 06:14:12 PM EDT [facility] Spoke with to clarify meds..correct doses obtained Name Value Range Interpretation Code Description Data Melani rce(s) Supporting Document(s ) ID Date Data Source [id number] 10/29/2019 06:01:22 PM EDT [facility] Pt unsure of dose of Vraylar will call w berta Name Value Range Interpretation Code Description Data Melani rce(s) Supporting Document(s ) ID Date Data Source [id number] 10/29/2019 03:56:40 PM EDT [facility] [id number] [facility] [employer] GSH [address] [place] MED [address] [place] [address] [phone] Maxwell Bray (Male) [id number] ES I 2 ED Dispo:ADMIT Chief Complaint: Dysarthria, Lethargy Diagnosis: Altered mental status, unspecified altered mental statu s type [] Bipolar disorder with severe depression (HCC) [] Current Providers: Att ending: Cole Ernandez; Cristi Canas Consulting Provider: Cristi Canas Primary Nurse: Kristy Moss Tech: HERMANN GonzalesN: [id number] [employer] [phone] - Bs hsi [employer] MrnMRN: [id number] [employer] [id number] - Bshsi [employer] Age Sex 1970 AGE 49 SEX Male Primary Care Provider: Ritika Canas MD Ybbgtuzjz: (No Kn own Allergies)Date Reviewed: 10/29/2019Reviewed by: Ritika Canas MD - Review CompleteED Provider Notes: All no tesHNO ID: [id number]: Cristobal Ernandez MDService: -Author Type: PhysicianFiled: 10/29/19 [...] mortality cardiac cath at [facility] approx 6-8 months ago Other unknown [...] week Gets together: Once a week Attends religion service: More than 4 times per year [...] QTC Calculation (Bezet) 446 ms Calculated P [place] 53 degrees Calc ulated R [place] 68 degrees Calculated T [place] 0 degrees Diagnosis Sinus tachycardiaProlonged PA intervalNo nspecific intraventricular conduction delayCBC WITH AUTOMATED [...] Time: 10/29/19 10:45 AMResult Value Ref Range [place] level <0.20 (L) 0.6 - 1.2 MMOL/L [...] contrast. Sagittal and coronalreconstruction was performed. Utilizing classroom technology coach algorithm theexaminationwas performed to optimize imaging quality [...] status, unspecified altered menta l status type R41.57875.97Patient condition at time of disposition: StableI have reviewed the following home medications:Prior to Admission medicationsMedication Sig Start Date End Date Taking? Authorizing ProviderVra ylar 3 mg capsule 09/03/19 Provider, Historicalamitriptyline (ELAVIL) 150 mg tablet TAKE 1 TABLET ORA LLY NIGHTLY DOSECHANGED 08/20/19 Provider, Historicallithium carbonate 150 mg capsule Take 300 mg by mouth three (3) timesdaily. Other, Phys, MDvalACYclovir (VALTREX) 1 gram tablet 07/17/18 Provider, Sneha flynnalclonazePAM (KLONOPIN) 2 mg tablet Take 1 mg by mouth daily. Paul Bradford MDSabo, Stephen, MD I, Gayle Abdi, am serving [...] d thediagnostic studies, unless otherwise noted.+ED Orders [id number] CBC WITH AUTOMATED DIFF [# [id number]] Priority: STAT Class: ER Collect Standing Order Information Remaining Occurrences:0 /1 Interval:ONE TIME Last released:10/29/2019 Released orders: SunOctober 29, 2019 11:02 AM by: CRISTOBAL ERNANDEZ [id number] METABOLIC PANEL, COMPREHENSIVE [#[id number]] Bridgette ority: STAT Class: ER Collect Standing Order Information Remaining Occurrences:0/1 Inter haile:ONE TIME Last released:10/29/2019 Released orders: SunOctober 29, 2019 11:02 AM by: CRISTOBAL WADE [id number] PROTHROMBIN TIME + INR [#[id number]] Priority: STAT Class: E R Collect Standing Order Information Remaining Occurrences:0/1 Interval:ONE TI ME Last released:10/29/2019 Released orders: SunOctober 29, 2019 11:02 AM by: BRIE ERNANDEZ EN [id number] PTT [#[id number]] Priority: STAT Class: ER Collect Speci men Source: Blood Standing Order Information Remaining Occurrences:0/1 Interval:ONE TI ME Last released:10/29/2019 Released orders: SunOctober 29, 2019 11:02 AM by: BRIE ERNANDEZ [id number] URINALYSIS W/ RFLX MICROSCOPIC [#[id number]] Priority: STAT Class: ER Collect Sta nding Order Information Remaining Occurrences:0/1 Interval:ONE TIME Last released:0 10/29/2019 Released orders: SunOctober 29, 2019 11:02 AM by: CRISTOBAL ERNANDEZ [id number] LITHIUM [#[id number]] Priority: STAT Class: ER Collect Standing Order Information Remaining Occurrences:0 Interval:ONE TIME Last released:10/29/2019 Released orders : SunOctober 29, 2019 11:02 AM by: CRISTOBAL ERNANDEZ [id number] CBC WITH AUTOMATED DIFF [# [id number]] Priority: STAT Class: ER Collect Specimen Source: Whole Blood Specimen Collected: 020 10:45 AM Resulting Agency: [facility] Test ID: [id number] Released on: 0 11:02 AM [id number] METABOLIC PANEL, COMPREHENSIVE [#[id number]] Priority: STAT Class: E R Collect Specimen Source: Plasma Specimen Collected: 10/29/2019 10:45 AM Resulting Agency: [facility] Test ID: MPL Released on: 10/29/2019 11:02 AM [id number] PROTHROMBIN TIME + IN R [#[id number]] Priority: STAT Class: ER Collect Specimen Source: Plasma Specimen Collec hyun: 10/29/2019 10:45 AM Resulting Agency: [facility] Test ID: APTHR Released o n: 10/29/2019 11:02 AM [id number] PTT [#[id number]] Priority: STAT Class: ER Collect Specimen Source: Plasma Specimen Collected: 10/29/2019 10:45 AM Resulting Agency: [facility] Test ID: APTT Released on: 10/29/2019 11:02 AM [id number] URINALYSIS W/ RFLX [place] CROSCOPIC [#[id number]] Priority: STAT Class: ER Collect Resulting Agency: [facility] Test ID: UA Released on: 10/29/2019 11:02 AM [id number] LITHIUM [#[id number]] Priority: STAT Class: ER Collect Specimen Source: Serum Specimen Collected: 10/28 10:45 AM Resulting Agency: [facility] Test ID: LI Released on: 10/29/2019 11:02 AM [id number] CBC WITH AUTOMATED DIFF [#[id number]] Priority: STAT Class: E R Collect Standing Order Information Remaining Occurrences:06/25 Interval:TOMORR OW AM [id number] METABOLIC PANEL, BASIC [#[id number]] Priority: STAT Class: ER Collect St anding Order Information Remaining Occurrences:1/1 Interval:TOMORROW AM [id number] CT HEAD W O CONT [#[id number]] Priority: Routine Class: Hospital Performed Standing Or mariano Information Remaining Occurrences:0/1 Interval:ONE TIME Last released:10/29/2019 Released orders: SunOctober 29, 2019 11:02 AM by: CRISTOBAL ERNANDEZ Reason for Exam -> ams [id number] 2590 XR CHEST PORT [#[id number]] Priority: STAT Class: Hospital Performe d Standing Order Information Remaining Occurrences:0/1 Interval:ONE TIME Last release d:10/29/2019 Released orders: SunOctober 29, 2019 11:02 AM by: CRISTOBAL ERNANDEZ Reason for Exam -> ams [id number] CT HEAD WO CONT [#[id number]] Priority: STAT Class: Hospital Perfo rmed Specimen Collected: 10/29/2019 11:54 AM Resulting Agency: [facility] Test ID: [id number] [place] son for Exam -> ams Released on: 10/29/2019 11:02 AM [id number] XR CHEST PORT [#[id number]] Priority: STAT Class: Hospital Performed Specimen Collected: 10/29/2019 12:16 PM Resultin g Agency: [facility] Test ID: [id number] Reason for Exam -> ams Released on: 10/29/2019 11:02 AM [id number] EKG, 12 LEAD, INITIAL [#[id number]] Priority: STAT Class: Hospital Performe d Standing Order Information Remaining Occurrences:0/1 Interval:ONE TIME Last release d:10/29/2019 Released orders: SunOctober 29, 2019 11:02 AM by: CRISTOBAL ERNANDEZ Reason for Exam : -> chest pain [id number] EKG, 12 LEAD, INITIAL [#[id number]] Priority: STAT Class: H ospital Performed Resulting Agency: [facility] Test ID: [id number] Reason for Exam: -> chest pain Releas ed on: 10/29/2019 11:02 AM [id number] POC GLUCOSE [#[id number]] Priority: STAT Cl ass: Hospital Performed Standing Order Information Remaining Occurrences:0/1 Interval:ONE TI ME Last released:10/29/2019 Released orders: SunOctober 29, 2019 11:02 AM by: BRIE ERNANDEZ EN [id number] POC GLUCOSE [#[id number]] Priority: STAT Class: Hospital Performe d Released on: 10/29/2019 11:02 AM [id number] VITAL SIGNS PER UNIT ROUTINE [#[id number]] Priorit y: STAT Class: Hospital Performed Standing Order Information Remaining Occurrences:0/1 Inte rval:CONTINUOUS Last released:10/29/2019 Released orders: SunOctober 29, 2019 2:54 PM by: RITIKA CANAS Comment:More frequently if Indicated. [id number] BEDREST, COMPLETE [#[id number]] Priority: STAT Class: Hospital Performed Standing Order Information Remainin g Occurrences:0/1 Interval:CONTINUOUS Last released:10/29/2019 Released orders : SunOctober 29, 2019 2:54 PM by: RITIKA [id number] NOTIFY PROVIDER: VITAL SIGNS CHANGES [# [id number]] Priority: STAT Class: Hospital Performed Standing Order [...] Less than 120 ml in 4 hours [id number] APPLY/MAINTAIN SEQUENTIAL COMPRESSIO* [#[id number]] Priority: ST AT Class: Hospital Performed Standing Order Information Remaining Occurrences:0/1 Inter haile:CONTINUOUS Last released:10/29/2019 Released orders: SunOctober 29, 2019 2:54 PM by: RITIKA CANAS [id number] VITAL SIGNS PER UNIT ROUTINE [#[id number]] Priority: STAT Class: H ospital Performed Comment:More frequently if Indicated. Released on: 10/29/2019 2:54 PM [id number] 4 BEDREST, COMPLETE [#[id number]] Priority: STAT Class: Hospital Performed Relea sed on: 10/29/2019 2:54 PM [id number] NOTIFY PROVIDER: VITAL SIGNS CHANGES [#[id number]] Priority: STAT Class: Hospital Performed Temp -> [...] carmen rs Released on: 10/29/2019 2:54 PM [id number] APPLY/MAINTAIN SEQUENTIAL COMPRESSIO* [#[id number]] P riority: STAT Class: Hospital Performed Released on: 10/29/2019 2:54 PM SODIUM CHLORIDE 0.9 % IJ SYRG [#[id number]] Priority: STAT Class: Normal SODIUM CHLORIDE 0.9 % IJ SYRG [#[id number]] Priority: STAT Class: Normal ACETAMINOPHEN 325 MG TABLET [# [id number]] Priority: STAT Class: Normal ENOXAPARIN 40 MG/0.4 ML SUB-Q SYRINGE [#[id number]] Priority: STAT Class: Normal SODIUM CHLORIDE 0.9 % IV [#[id number]] Priority: STAT Class: Normal [id number] GLUCOSE, POC [#[id number]] Priority: Routine Class : ER Collect Resulting Agency: [facility] Test ID: BGG Standing Order Informati on Remaining Occurrences:0/1 Released orders: SunOctober 29, 2019 11:26 AM by: Automatic B [facility] Process [id number] GLUCOSE, POC [#[id number]] Priority: Routine Class : ER Collect Specimen Source: Whole Blood Specimen Collected: 10/29/2019 11:26 AM Resulting Agency: [facility] Test ID: BGG Released on: 10/29/2019 11:26 AM [id number] IP CONSULT TO PRIMARY CARE PROVIDER [#[id number]] Priority: STAT Class: Hospital Performed Standing Order Inf ormation Remaining Occurrences:0 Interval:ONE TIME Last released:10/29/2019 Relea sed orders: SunOctober 29, 2019 12:59 PM by: CRISTOBAL ERNANDEZ Reason for Consult: -> admit Did you call or speak to the consulting provider? -> No Consult To -> dr canas [id number] IP CONSULT TO PRIMAR Y CARE PROVIDER [#[id number]] Priority: STAT Class: Hospital Performed Reason for Consult: -> ad rei Did you call or speak to the consulting provider? -> No Consult To -> dr canas Released on: 12:59 PM CON53 IP CONSULT TO PSYCHIATRY [#[id number]] Priority: STAT Class: H ospital Performed Standing [...] -> TODAY CON53 IP CONSULT TO PSYCHIATRY [#[id number]] Priority: STAT Class: Hospital Performed Reason for Consult: -> 49 yo male with severe bipolar diseas e, admitted with slurred speech, severe weakness Did you call or speak to t he consulting provider? -> No Consult To -> Dr Aguirre Schedule When? -> TODAY Released on: 10/29/2019 2:54 PM [id number] INITIAL PHYSICIAN ORDER: INPATIENT [#[id number]] Priority: Routine Class : ADT Pend Transfer [...] Discharge Plan: -> Home with Office Follow-up [id number] INITIAL PHYSICIAN ORDER: INPATIENT [# [id number]] Priority: Routine Class: ADT Pend Transfer Status: [...] RITIKA CANAS Attending Physician - > RITIKA CAANS Estimated Length of Stay -> 3-4 Midnights Discharge Plan: -> Home with Office Foll ow-up Released on: 10/29/2019 2:43 PM [id number] INITIAL PHYSICIAN ORDER: INPATIENT [#[id number]] Priority: Routine Class: ADT Pend Transfer [...] 3-4 Midnights Discharge Plan: -> Other (Specify) [id number] INITIAL PHYSIC JOSE ORDER: INPATIENT [#[id number]] Priority: Routine Class: ADT Pend Transfer Status: [...] 2:54 PM IVT3 INSERT PERIPHERAL IV [# [id number]] Priority: STAT Class: Hospital Performed Standing Order Information Remaining Occurre nces:0/ Interval:ONE TIME Last released:10/29/2019 Released orders: SunOctober 28, 020 2:54 PM by: RITIKA CANAS IVT3 INSERT PERIPHERAL IV [#[id number]] Priority: ST AT Class: Hospital Performed Released on: 10/29/2019 2:54 PM CON75 IP CONSULT TO PHYSICAL THERAPY [#[id number]] Priority: STAT Class: Hospital Performed Standing Order Information Remainin g Occurrences: Interval:DAILY Last released:10/29/2019 Released orders : SunOctober 29, 2019 2:54 PM by: RITIKA CANAS CON75 IP CONSULT TO PHYSICAL THERAPY [#[id number]] Priority: STAT Class: Hospital Performed Released on: 10/29/2019 2:54 PM COD2 FULL CODE [#[id number]] Priority: STAT Class: Hospital Performed Standing Order Inf ormation Remaining Occurrences:0/1 Interval:CONTINUOUS Last released:10/29/2019 Rel eased orders: SunOctober 29, 2019 2:54 PM by: RITIKA CANAS COD2 FULL CODE [#[id number]] Priority: STAT Class: Hospital Performed Released on: 10/29/2019 2:54 PM DIET10 4 DIET FULL LIQUID [#[id number]] Priority: STAT Class: Hospital Performed Stand ing Order Information Remaining Occurrences:0/1 Interval:DIET EFFECTIVE NOW Last released:10/29/2019 Released orders: SunOctober 29, 2019 2:54 PM by: RITIKA CANAS Comment:A dvance as tolerated to regular diet [id number] DIET FULL LIQUID [#[id number]] Priority: STAT Class: Hospital Performed Comment:Advance as tolerated to regular diet Released on: 10/29/2019 2:54 Maxwell Corona MR#: [id number] * Rm: 416-02Ht: 5' 7" Wt: 3 00 lb Code: Full Code Iso:Diagnosis:Bipolar disorder with severe depression (HCC) [F31.4]Allergies : No Known Allergies -------- Current as of: 10/29/19 1556 ---aspirin (ASPIRIN) tablet 325 mg #[id number] Admin Amount: 1 Tab (1 x 325 mg Tab) Ordered Dose: 325 mg Route: Oral Freq: ONCE Start Date: 12/24/13 No administration times (back 96 hours, ahead 96 hours). ------diphenhydrAMINE (BENADRYL) capsule 50 mg #[id number] Admin Amount: 1 Cap (1 x 50 mg Cap) Ordered Dose: 50 mg [place]: Oral Freq: NOW Start Date: 12/24/13 No administration times (back 96 hours, e ad 96 hours). ------diazepam (VALIUM) tablet 5 mg #[id number] Admin Amount: 1 Tab (1 x 5 mg Tab) Ordered Dose: 5 mg Route: Ora l Freq: ONCE Start Date: 12/24/13 No administration times (back 96 hours, e ad 96 hours). ------lidocaine (XYLOCAINE) 10 mg/mL (1 %) injection 1-30 mL #[id number] Admin Amount: 1-30 mL Ordered Dose: 1-30 mL Route: IntraDERMal Freq: ONC E Start Date: 12/24/13 No administration times (back 96 hours, ahead 96 hours). ------heparin (PF) 2 units/ml in NS infusion 2,000 Units #[id number] Admin Amount: 1,000 mL = 2,000 Units of 2 Units/mL Ordered Dose: 1,000 mL Route: Irrigation Freq: ONCE Start Date: 12/24/13 No administration times (b ack 96 hours, ahead 96 hours). ------heparinized saline 2 units/mL infusion 1,000 Units #[id number] Admin Amount: 500 mL = 1,000 Units of 2 Units/mL Ordered Dose: 500 mL R oute: IntraarTERial Freq: ONCE Start Date: 12/24/13 No administration times (back 96 hours, ahead 96 hours). ------0.9% sodium chloride infusion #[id number] Ordered Dose: 75 mL/hr Route: IntraVENous Freq: CONTINUOUS Start Date: 12/24/13 Rate: 75 mL/hr Duration: No administration times (back 96 hours, ahead 96 hours). ------ioversol (OPTIRAY) 320 mg iodine/mL contrast injection 1-100 mL #[id number] Admin Amount: 1-100 mL Ordered Dose: 1-100 mL Route: IntraVENous Freq: RAD ONCE Start Date: 12/24/13 No administration times (back 96 hours, ahead 96 hours).Maxwell Bray MR#: [id number] * Rm: 416-02Ht: 5' 7" Wt: 300 lb Code: Full Code Iso:Diagnosis:Bipolar disorder with severe depression (HCC) [F31.4]Allergies: No Kn own Allergies -------- Current as of: 10/29/19 1556 ---gadobutrol (GADAVIST) contrast solution 1-10 mL #[id number] Admin Amount: 1-10 mL Ordered Dose: 1-10 mL Route: IntraVENo us Freq: RAD ONCE Start Date: 01/13/14 No administration times (back 96 hours, ahe ad 96 hours). ------sodium chloride (NS) flush 5-10 mL #[id number] Admin Amount: 5-10 mL Ordered Dose: 5-10 mL Route: IntraVENous Freq: RA D ONCE Start Date: 01/13/14 No administration times (back 96 hours, ahead 96 hours). ------sodium chloride (NS) 0.9 % flush #[id number] Ordered Dose: Route: Freq: Start D ate: 01/13/14 No administration times (back 96 hours, ahead 96 hours). ------morphine injection 2 mg #[id number] Admin Amount: 1 mL = 2 mg of 2 mg/mL Ordered Dose: 2 mg Route: Int raVENous Freq: NOW Start Date: 03/13/15 No administration times (back 96 hours, ahe ad 96 hours). ------influenza vaccine (4 yr+)(PF) (FLUCELVAX QUAD) inj ection 0.5*#[id number] Admin Amount: 0.5 mL Ordered Dose: 0.5 mL Route: IntraMUSCular Freq : PRIOR TO DISCHARGE Start Date: 03/30/16 No administration times (back 96 hours, ahead 96 hours). ------oxyCODONE-acetaminophe n (PERCOCET) 5-325 mg per tablet 1 Tab #[id number] Admin Amount: 1 Tab Ordered Dose: 1 Tab Route: Oral Freq: NOW Start Date: 09/07/17 No administration times (back 96 hours, ahead 96 hours). ------barium sulfate (READICAT) 2.1 % (w/v), 2.0 % (w /w) oral suspension 9*#[id number] Admin Amount: 900 mL Ordered Dose: 900 mL Route: Ora l Freq: RAD ONCE Start Date: 10/15/17 No administration times (back 96 hours, ahe ad 96 hours). ------iopamidol (ISOVUE 300) 61 % contrast injection 100 mL #[id number] Admin Amount: 100 mL Ordered Dose: 100 mL Route: IntraVENous Freq: RAD O NCE Start Date: 10/15/17 No administration times (back 96 hours, ahead 96 hours).AsaArieMaxwell F MR#: [id number] * Rm: [id number]: 5' 7" Wt: 300 lb Cod e: Full Code Iso:Diagnosis:Bipolar disorder with severe depression ([facility]) [F31.4]Allergies: No Kn own Allergies -------- Current as of: 10/29/19 1556 ---risperiDONE (RisperDAL m-tabs) disintegrating tablet 1 mg #[id number] Admin Amount: 1 Tab (1 x 1 mg Tab) Ordered Dose: 1 mg [place]: Oral Freq: ONCE Start Date: 12/24/17 No administration times (back 96 hours, e ad 96 hours). ------ALPRAZolam (XANAX) tablet 2 mg #[id number] Admin Amount: 4 Tab (4 x 0.5 mg Tab) Ordered Dose: 2 mg Route: Ora l Freq: NOW Start Date: 12/24/17 No administration times (back 96 hours, e ad 96 hours). ------lamoTRIgine (LaMICtal) tablet 100 mg #[id number] Admin Amount: 1 Tab (1 x 100 mg Tab) Ordered Dose: 100 mg Route: Ora l Freq: ONCE Start Date: 12/24/17 No administration times (back 96 hours, [facility] ad 96 hours). ------OLANZapine (ZyPREXA zydis) disintegrating tablet 5 mg #[id number] Admin Amount: 1 Tab (1 x 5 mg Tab) Ordered Dose: 5 mg Route: Ora l Freq: ONCE Start Date: 12/25/17 No administration times (back 96 hours, e ad 96 hours). ------LORazepam (ATIVAN) tablet 2 mg #[id number] Admin Amount: 4 Tab (4 x 0.5 mg Tab) Ordered Dose: 2 mg Route: Ora l Freq: NOW Start Date: 12/25/17 No administration times (back 96 hours, [facility] ad 96 hours). ------LORazepam (ATIVAN) injection 1 mg #[id number] Admin Amount: 0.5 mL = 1 mg of 2 mg/mL Ordered Dose: 1 mg [place]: IntraVENous Freq: NOW Start Date: 12/25/17 No administration times (back 96 hours, ahead 96 hours). ------barium sulfate (EZ PAQUE) 96 % (w/w) contrast suspension 17 6 g #[id number] Admin Amount: 176 g Ordered Dose: 176 g Route: Oral Freq: RAD ONCE Start Date: 08/02/18 No administration times (back 96 hours, ahead 96 hours). ------barium sulfate (EZ PAQUE) 96 % (w/w) contrast suspension 17 6 g #[id number] Admin Amount: 176 g Ordered Dose: 176 g Route: Oral Freq: RAD ONCE Start Date: 08/02/18 No administration times (back 96 hours, ahead 96 hours).Maxwell Bray MR#: [id number] * Rm: 416-02Ht: 5' 7" Wt: 300 lb Code: Full Co de Iso:Diagnosis:Bipolar disorder with severe depression ([facility]) [F31.4]Allergies: No Known Allergies -------- Current as of: 10/29/19 1556 ---aspirin chewable tablet 162 mg #[id number] Admin Amount: 2 Tab (2 x 81 mg Tab) Ordered Dose: 162 mg Route: Ora l Freq: NOW Start Date: 08/10/19 No administration times (back 96 hours, ahe ad 96 hours). ------0.9% sodium chloride infusion 1,000 mL #[id number] Admin Amount: 1,000 mL Ordered Dose: 1,000 mL Route: IntraVENous Freq: O NCE Start Date: 08/16/19 Rate: 1,000 mL/hr Duration: No administratio n times (back 96 hours, ahead 96 hours). ------methylPREDNISolone (PF) (Solu-MEDROL) injection 125 mg #[id number] Admin Amount: 2 mL = 125 mg of 125 mg/2 mL Ordered Dose: 125 mg [place]: IntraVENous Freq: NOW Start Date: 08/16/19 No administration times (back 9 6 hours, ahead 96 hours). ------aspirin chewable tablet 162 mg #[id number] Admin Amount: 2 Tab (2 x 81 mg Tab) Ordered Dose: 162 mg Route: Ora l Freq: NOW Start Date: 08/16/19 No administration times (back 96 hours, e ad 96 hours). ------sodium chloride (NS) flush 5-40 mL #[id number] Admin Amount: 5-40 mL Ordered Dose: 5-40 mL Route: IntraVENous Freq: EV AN 8 HOURS Start Date: 10/29/19 Administration times (back 96 hours, ahead 96 hours): : 1400 2200 10/30/19: 0600 1400 2200 10/31/19: 0600 1400 2200 11/01/19: 0600 1400 2200 11/02/19: 0600 1400 ---sodium chloride (NS) flush 5-40 mL #[id number] Admin Amount: 5-40 mL Ordered Dose: 5-40 mL Route: IntraVENous Freq: NEEDED Start Date: 10/29/19 No administration times (back 96 hours, ahead 96 hours). ------acetaminophen (TYLENOL) tablet 650 mg #[id number] Admin Amount: 2 Tab (2 x 325 mg Tab) Ordered Dose: 650 mg [place]: Oral Freq: EVERY 4 HOURS NEEDED Start Date: 10/29/19 No administration times (back 96 hours, [facility] ad 96 hours).Maxwell Bray MR#: [id number] * Rm: 416-02Ht: 5' 7" Wt: 3 00 lb Code: Full Code Iso:Diagnosis:Bipolar disorder with severe depression ([facility]) [F31.4]Allergies : No Known Allergies -------- Current as of: 10/29/19 1556 ---enoxaparin (LOVENOX) injection 40 mg #[id number] Admin Amount: 0.4 mL = 40 mg of 40 mg/0.4 mL Ordered Dose: 40 mg Route: SubCUTAneous Freq: EVERY 24 HOURS Start Date: 10/29/19 Administration times (back 96 hours, ahead 96 hours): 10/29/19: 1455 10/30/19: 145410/31/19: 145411/01/19: 145411/02/19 : 1455 ---0.9% sodium chloride infusion #[id number] Ordered Dose: 100 mL/hr Route: IntraVENous Freq: [...] Supporting Document(s ) ID Date Data Source [id number] 10/29/2019 03:54:13 PM EDT [facility] History & PhysicalBrian Anam Bray is a [...] mortality cardiac cath at [facility] approx 6-8 months ag o Other [...] DIC 1986 aarthroscopic knee surgery HX ORTHOPAEDIC 1991 broken footFamily Hist oryProblem Relation Age of [...] week Gets together: Once a week Attends religion service: More than 4 times per year [...] trast. Sagittal and coronal reconstruction was performed.Utilizing classroom technology coach alg orithm the examination was performed to [...] QTC Calculation (Bezet) 446 ms Calculated P [place] 53 degrees Calculat ed R [place] 68 degrees Calculated T [place] 0 degrees Diagnosis Sinus tachycardiaProl onged PA intervalNonspecific intraventricular conduction delayCBC WITH AUTOMATED DIFF [...] lydia: 10/29/19 10:45 AMResult Value Ref Range [place] level <0.20 (L) 0.6 - 1.2 MMOL/L GLUCOSE, POC Collection Time: 10/29/19 11:26 AMResult Value Ref Range Glucose, bedsid e 102 65 - 110 MG/DLAll lab results for the last 24 hours reviewed.Assessment/PlanAc tive Problems: Bipolar disorder with severe depression (HCC) (10/29/2019) possible [place] dvertentoverdoseGeorge MD Corey Name Value Range Interpretation Code Description Data Melani rce(s) Supporting Document(s ) ID Date Data Source [id number] 10/29/2019 03:42:10 PM [facility]:Verbal report give n to herminio RN(name) on Maxwell Bray being transferred to(unit) for routine progr ession of careReport consisted of patient's Situation, Background, Assessment andReleda ommendasreedhar(SBAR).Information from the following report(s) SBAR, Kardex, [...] Supporting Document(s ) ID Date Data Source [id number] 10/29/2019 02:28:59 PM EDT [facility] The history is provided by the spouse.10 [...] ity cardiac cath at [facility] approx 6-8 months ago Other unknown [...] week Gets together: Once a week Attends religion service: More than 4 times per year [...] QTC Calculation (Bezet) 446 ms Calculated P [place] 53 degr ees Calculated R [place] 68 degrees Calculated T [place] 0 degrees Diagnosis Sinus tachycar diaProlonged PA intervalNonspecific intraventricular conduction delayCBC WIT H AUTOMATED [...] lydia: 10/29/19 10:45 AMResult Value Ref Range [place] level <0.20 (L) 0.6 - 1.2 MMOL/L [...] Sagittal and coronalreconstru ction was performed. Utilizing classroom technology coach algorithm the examinationwas performed t o optimize [...] Supporting Document(s ) ID Date Data Source [id number] 10/29/2019 12:17:28 PM EDT [facility] XR CHEST PORTCLINICAL INDICATION PROVIDE D:. "ams."TECHNIQUE.: [...] Name Value Range Interpretation Code Description Data [facility] rce(s) Supporting Document(s ) ID Date Data Source [id number] 10/29/2019 11:55:57 AM EDT [facility] CT HEAD WO CONTClinical data: amsPriors: 03/13/2015.Technique: Multiple axial images were obtained from the skullbase to the vertexwithout administration of intravenous contrast. Sagittal and coronalreconstru ction was performed. Utilizing classroom technology coach algorithm the examinationwas performed t o optimize [...] Supporting Document(s ) ID Date Data Source [id number] 10/29/2019 11:48:34 AM EDT [facility] Name Value Range Interpretation Description Data Sup porting Code Source(s) Document(s ) Glucose 102 MG/DL 65-110 [facility] - Good [Mass/volume] [facility] in Blood by [facility] Automated test strip ID Date Data Source [id number] 10/29/2019 10:49:56 AM EDT [facility] Patient lethargic, BIBA from home for le thargy and slurred speech. Name Value Range Interpretation Code Description Data Melani rce(s) Supporting Document(s ) ID Date Data Source [id number] 10/29/2019 11:29:33 AM EDT [facility] Name Value Range Interpretation Code Description Data Supporting Source(s) Document(s ) [place] 0.6-1.2 Below low normal [facility] - [facility] [Moles/volum [facility] e] in Serum Hospital or Plasma ID Date Data Source [id number] 10/29/2019 11:28:52 AM EDT [facility] Name Value Range Interpretation Description Data Sup porting Code Source(s) Document(s ) Sodium 136 136-145 [facility] - [facility] [Moles/volume] mmol/L [facility] in Serum or Hospital Plasma Potassium 4.4 3.5-5.1 [facility] - [facility] [Moles/volume] mmol/L [facility] in Serum or Hospital Plasma Chloride 106 98-107 [facility] - [facility] [Moles/volume] mmol/L [facility] in Serum or Hospital Plasma Carbon 22 21-32 [facility] - Good dioxide, total mmol/L [facility] [Moles/volume] Hospital in Serum or Plasma Anion gap in 12 10-20 [facility] - Good Serum or mmol/L [facility] Plasma Hospital Glucose 108 74-106 Above high normal [facility] - Good [Mass/volume] mg/dL [facility] in Serum or Hospital Plasma Urea nitrogen 16 mg/dL 7-18 [facility] - [facility] [Mass/volume] [facility] in Serum or Hospital Plasma Creatinine 1.05 0.70-1.3 [facility] - Good [Mass/volume] mg/dL 0 [facility] in Serum or Hospital Plasma Glomerular >60 [facility] - Good filtration [facility] rate/1.73 sq M Hospital predicted among blacks [Volume Rate/Area] in Serum or Plasma by Creatinine-bas ed formula (MDRD) Glomerular >60 [facility] - Good filtration [facility] rate/1.73 sq M Hospital predicted among non-blacks [Volume Rate/Area] in Serum or Plasma by Creatinine-bas ed formula (MDRD) (NOTE)Estimated GFR is calculated using the Modification of Diet in RenalDisease (MDRD) Study equation, reported for both Americans(GFRAA) and non- Americans (GFRNA), and normalized to 1.7 9x8nwki surface area. The physician must decide which [...] 8.5-10.1 [facility] - [facility] Serum or Plasma [facility] Bilirubin.total 0.7 mg/dL 0.2-1.0 [facility] - Good [Mass/volume] in Serum or [facility] Plasma Alanine aminotransferase 30 U/L 13-61 [facility] - Good [Enzymatic activity/volume] [facility] in Serum or Plasma Aspartate aminotransferase 27 U/L 15-37 [facility] - Good [Enzymatic activity/volume] [facility] in Serum or Plasma by With P-5'-P Alkaline phosphatase 139 U/L 45-117 Above high [facility] - Good [Enzymatic activity/volume] normal [facility] in Serum or Plasma Protein [Mass/volume] in 7.6 g/dL 6.4-8.2 [facility] - Good Serum or Plasma [facility] Albumin [Mass/volume] in 3.9 g/dL 3.5-4.7 [facility] - Good Serum or Plasma by [facility] Bromocresol purple (BCP) dye binding method Globulin [Mass/volume] in 3.7 g/dL 1.7-4.7 [facility] - Good Serum by calculation [facility] Albumin/Globulin [Mass 1.0 0.7-2.8 [facility] - Good Ratio] in Serum or Plasma [facility] ID Date Data Source [id number] 10/29/2019 11:20:29 AM EDT [facility] Name Value Range Interpretation Description Data Sup porting Code Source(s) Document(s ) aPTT in 22.2 SEC 21.0-28. [facility] - Good Platelet poor 0 [facility] plasma by [facility] Coagulation assay Therapeutic Range = 42.0-60.0 secs ID Date Data Source [id number] 10/29/2019 11:20:29 AM EDT [facility] - Good [facility] Name Value Range Interpretation Description Data Sup porting Code Source(s) Document(s ) Prothrombin 10.3 sec 9.4-11.1 [facility] - Good time (PT) [facility] INR in 1.0 0.8-1.2 [facility] - Good Platelet poor [facility] plasma by Hospital Coagulation assay ID Date Data Source [id number] 10/29/2019 11:11:49 AM EDT [facility] - [facility] Name Value Range Interpretation Description Data Sup porting Code Source(s) Document(s ) Leukocytes 8.1 K/uL 4.8-10.6 [facility] - [#/volume] in Good Blood by [facility] Erythrocytes 5.52 4.70-6.0 [facility] - [#/volume] in M/uL 0 Good Blood by [facility] Hemoglobin 16.7 14.0-18. [facility] - [Mass/volume] in g/dL 0 Good Blood [facility] Hematocrit 51.8 % 42.0-52. [facility] - [Volume 0 Good Fraction] of [facility] Blood by [facility] Automated count Erythrocyte mean 93.8 FL 81.0-94. [facility] - corpuscular 0 Good volume [Entitic Protestant volume] by [facility] Automated count Erythrocyte mean 30.3 PG 27.0-35. [facility] - corpuscular 0 Good hemoglobin [facility] [Entitic mass] Hospital by Automated count Erythrocyte mean 32.2 30.7-37. [facility] - corpuscular g/dL 3 Good hemoglobin [facility] Hospital [Mass/volume] by Automated count Erythrocyte 13.2 % 11.5-14. [facility] - distribution 0 Good width [Ratio] by [facility] Automated count Hospital Platelets 193 K/uL 130-400 [facility] - [#/volume] in Good Blood by [facility] Automated count Hospital Platelet mean 8.6 FL 9.2-11.8 Below low normal [facility] - volume [Entitic Good volume] in Blood [facility] by Automated Hospital count Nucleated 0.0 PER 0 [facility] - erythrocytes/100 100 WBC Good leukocytes [facility] [Ratio] in Blood [facility] Nucleated 0.00 0.0-0.01 [facility] - erythrocytes K/uL Good [#/volume] in [facility] Segmented 79 % 48.0-72. Above high normal [facility] - neutrophils/100 0 Good leukocytes in [facility] Lymphocytes/100 10 % 18.0-40. Below low normal [facility] - leukocytes in 0 [facility] Blood [facility] Monocytes/100 8 % 2.0-12.0 [facility] - leukocytes in [facility] Eosinophils/100 1 % 0.0-7.0 [facility] - leukocytes in [facility] Basophils/100 0 % 0.0-3.0 [facility] - leukocytes in [facility] Immature 1 % 0-0.5 Above high normal [facility] - granulocytes/100 Good leukocytes in [facility] Hospital Automated count Segmented 6.4 K/UL 2.3-7.6 [facility] - neutrophils Good [#/volume] in [facility] Lymphocytes 0.8 K/UL 0.9-4.2 Below low normal [facility] - [#/volume] in [facility] Monocytes 0.7 K/UL 0.1-1.7 [facility] - [#/volume] in [facility] Eosinophils 0.1 K/UL 0.0-1.0 [facility] - [#/volume] in [facility] Basophils 0.0 K/UL 0.0-0.4 [facility] - [#/volume] in [facility] Immature 0.1 K/UL 0.0-0.17 [facility] - granulocytes Good [#/volume] in [facility] by [facility] Automated count Differential [facility] - cell count [facility] ID Date Data Source [id number] 09/15/2019 09:44:01 AM EDT [facility] Clinical Indications/Reason For Exam: pa in.AP, open-mouth [...] Supporting Document(s ) ID Date Data Source [id number] 09/15/2019 09:41:40 AM EDT [facility] THORACIC SPINE 4 views.History: Pain.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 Signing date/time: 09/15/2019 9:41 AMSigned by: CURTIS VARMA Name Value Range Interpretation Code Description Data Melani rce(s) Supporting Document(s ) ID Date Data Source [id number] 09/15/2019 09:40:53 AM EDT [facility] Clinical indications with reason for exa m: [...] Name Value Range Interpretation Code Description Data [facility] rce(s) Supporting Document(s ) ID Date Data Source [id number] 08/17/2019 08:25:20 AM [facility] History: Chest PainTechnique: Portable c [...] Name Value Range Interpretation Code Description Data [facility] rce(s) Supporting Document(s ) ID Date Data Source [id number] 08/16/2019 11:12:22 PM [facility] The history is provided by [...] mortality cardiac cath at [facility] approx 6-8 months ago Other unknown [...] e Gets together: Not on file Attends religion service: Not on file 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 [...] (!) 107 (!) 101 96R tahmina: 20 15Temp:SpO2: 91% 91% 92%Weight:Height:Physical ExamVitals sig [...] Calculation (Bezet) 429 ms Ca lculated P [place] 36 degrees Calculated R [place] 77 degrees Calculated T [place] -24 degrees Diagnosis Sinus tachycardiaBorderline T abnormalities, [...] Time: 08/16/19 9:00 PMResult Value Ref Range [place] level 0.21 (L) 0.6 - 1.2 MMOL/LEKG: sinus tach ycardia, rate 109Radiology:CXR: no acute findings<EMERGENCY DEPARTMENT CASE [facility]>Impression/Differential Diagnosis: Allergic reaction allergic, drug reactio n,ACS, pulmonary embolismED Course: Patient presents short of breath and mildly tach ycardic complainingof new onset rash to face anterior chest and posterior chest.Plan: Labs, chest x-ray, EKG, troponin, d-dimer, prednisone, Pepcid, [id number]:04 PM patient verbalizes relief of symptoms rash has faded. He denies chestpain he denie s shortness of breath.Patient was advised that we cannot rule out allergic drug re action as he isrecently just restarted taking his lithium. Patient advised to discuss takinglithium with his psychiatrist as soon as possible.Patient reassessed at [facility] by me. Feels better at present, wants to go home.Patient was told to follow up with the primary doctor in 1-2 days and return [facility] ED for any worsening severe pain, vomiting, [...] time of disposition: stableI [facility]:Prior to Admission medicationsMedication Sig Start [...] THREE TIMES A DAYFOR 10 DAYS 07/17/18 Garrick RolononazePAM (KLONOPIN) 2 mg tablet Take 2 mg [...] 36N*ENCOUNTER 08/16/2019 10:46:05 PM EST [facility] - [facility] [id number] [facility] EMERGENCY DEPARTMENT [address] [address] [phone] Maxwell Bray (Male) [id number] I 3 ED Dispo:DISCHARGE Chief Complaint: Allergic Reaction Diagnosis: Allergic reaction, initial encounter [] Allergic reaction to drug, in itial encounter [] Current Providers: Attending: Javier Quezada Nurse Practitioner: Javier Ward Primary Nurse: LUCILLE Acuña: [phone] Print Group [id number] - [facility] MrnMRN: [id number] Print Group [id number] - [facility] Age Sex 1970 AGE 49 SEX Male Primary Care Provider: Ritika Canas MD Esotsmqfk: (No Known Allergies)Date Reviewed: 08/16/2019Reviewed by: Zahraa Prince RN - Review CompleteED Provider Notes: No not es of this type exist for this encounter.ED Orders BUPROPION XL 300 MG 24 HR TAB [#[id number]] Priority: Routine Class: Historical Med LITHIUM CARBONATE 150 MG CAP [#[id number]] Priority: Routine Class: Historical Med FAMOTIDINE 20MG + NS 10 ML IV [#[id number]] Priority: STAT Class: Normal H2RA INDICATION -> Adverse reaction/Anaphylaxis SODIUM CH LORIDE 0.9 % IV [#[id number]] Priority: STAT Class: Normal METHYLPREDNISOLONE (PF) 125 MG/2 ML * [#[id number]] Priority: STAT Class: Normal ASPIRIN 81 MG CHEWABLE TAB [# [id number]] Priority: STAT Class: Normal PREDNISONE 50 MG TAB [#[id number]] Bridgette ority: Routine Class: Normal [id number] CUT OUT STITCHER - ED ONLY [#[id number]] Priority: STAT C lass: Hospital Performed Standing Order Information Remaining Occurrences:0/1 Interval:Contin uous Last released:08/16/2019 Released orders: Sat Aug 16, 2019 9:02 PM by: Javier POLLOCK Type: -> Bedside [id number] OBTAIN OLD EKG [#[id number]] Priority: Routi ne Class: Hospital Performed Standing Order Information Remaining Occurrences:0/1 Inter haile:ONE TIME Last released:08/16/2019 Released orders: Sat Aug 16, 2019 9:02 PM by: INDIO WARD [id number] PULSE OXIMETRY CONTINUOUS [#[id number]] Priority: STAT Class: H ospital Performed Standing Order Information Remaining Occurrences:0/1 Interval:CONTIN UOUS Last released:08/16/2019 Released orders: Sat Aug 16, 2019 9:02 PM by: Javier POLLOCK [id number] CUT OUT STITCHER - ED ONLY [#[id number]] Priority: STAT Class: Hospital Perfo rmed Type: -> Bedside Released on: 08/16/2019 9:02 PM [id number] OBTAIN OLD EKG [#[id number]] Priority: STAT Class: Hospital Performed Released on: 08/16/2019 9:02 PM [id number] PULSE OXIMETRY CONTINUOUS [#[id number]] Priority: STAT Class: Hospital Performed Relea sed on: 08/16/2019 9:02 PM [id number] DIET NPO [#[id number]] Priority: STAT Cla ss: Hospital Performed Standing Order Information Remaining Occurrences:0/1 Interval:DIET E FFECTIVE NOW Last released:08/16/2019 Released orders: Sat Aug 16, 2019 9:02 PM by: INDIO WARD NPO options: -> With Meds [id number] DIET NPO [#[id number]] Priority: STAT Class: Hospital Performed NPO options: -> With Meds Released on: 08/16/2019 9:02 PM [id number] SALINE LOCK IV [#[id number]] Priority: STAT Class: Hospital Performe d Standing Order Information Remaining Occurrences:0/1 Interval:ONE TIME Last released: 08/16/2019 Released orders: Sat Aug 16, 2019 9:02 PM by: INDIO POLLOCK [id number] SALIN E LOCK IV [#[id number]] Priority: STAT Class: Hospital Performed Released on : 08/16/2019 9:02 PM [id number] METABOLIC PANEL, COMPREHENSIVE [#[id number]] Priority: STAT Class: E R Collect Standing Order Information Remaining Occurrences:0/1 Interval:ONE TIME Last r eleased:08/16/2019 Released orders: Sat Aug 16, 2019 9:02 PM by: INDIO POLLOCK [id number] CBC WITH AUTOMATED DIFF [#[id number]] Priority: STAT Class: ER Collect Standing Order Info rmation Remaining Occurrences:0/1 Interval:ONE TIME Last released:08/16/2019 Released orders: Sat Aug 16, 2019 9:02 PM by: INDIO POLLOCK [id number] TROPONIN I [#[id number]] Priority: STAT Class: ER Collect Standing Order Information Remaining Occurre nces:0/1 Interval:ONE TIME Last released:08/16/2019 Released orders: Sat Aug 16 9:02 PM by: INDIO POLLOCK [id number] MAGNESIUM [#[id number]] Priorit y: STAT Class: ER Collect Standing Order Information Remaining Occurrences:0/1 Inter haile:ONE TIME Last released:08/16/2019 Released orders: Sat Aug 16, 2019 9:02 PM by: INDIO WARD [id number] D DIMER [#[id number]] Priority: STAT Class: E R Collect Standing Order Information Remaining Occurrences:0/1 Interval:ONE TIME Last r eleased:08/16/2019 Released orders: Sat Aug 16, 2019 9:02 PM by: INDIO POLLOCK [id number] METABOLIC PANEL, COMPREHENSIVE [#[id number]] Priority: STAT Class: ER Collect Specimen Source: Plas ma Specimen Collected: 08/16/2019 9:00 PM Resulting Agency: [facility] Test ID: MPL Released on: 08/16/2019 9:02 PM [id number] CBC WITH AUTOMATED DIFF [#[id number]] Prior ity: STAT Class: ER Collect Specimen Source: Whole Blood Specimen Collected: 08/16/2019 9:00 PM Resultin g Agency: [facility] Test ID: [id number] Released on: 08/16/2019 9:02 PM [id number] TROPONIN I [#[id number]] Priority: STAT Class: ER Collect Specimen Source : Plasma Specimen Collected: 08/16/2019 9:00 PM Resulting Agency: [facility] Test ID: TROIP Released on: 08/16/2019 9:02 PM [id number] MAGNESIUM [#[id number]] Priority: STAT Class: ER Collect Specimen Source: Plasma Specimen Collected: 08/16/2019 9:00 PM Resultin g Agency: [facility] Test ID: MGPL Released on: 08/16/2019 9:02 PM [id number] 4 D DIMER [#[id number]] Priority: STAT Class: ER Collect Specimen Source : Plasma Specimen Collected: 08/16/2019 9:00 PM Resulting Agency: [facility] Test ID: [id number] Released on: 08/16/2019 9:02 PM [id number] LITHIUM [#[id number]] Priority: STAT Class: ER Collect Standing Order Information Remaining Occurrences:0/1 Inter haile:ONE TIME Last released:08/16/2019 Released orders: Sat Aug 16, 2019 9:02 PM by: INDIO WARD [id number] LITHIUM [#[id number]] Priority: STAT Class: E R Collect Specimen Source: Serum Specimen Collected: 08/16/2019 9:00 PM Resulting Agency: [facility] Test ID: LI Released on: 08/16/2019 9:02 PM [id number] EKG, 12 LEAD, INITIAL [#[id number]] Priority: STAT Class: Hospital Performed Standing Order Information Remainin g Occurrences:0/1 Interval:ONE TIME Last released:08/16/2019 Released orders : [facility] Aug 16, 2019 9:02 PM by: INDIO POLLOCK Reason for Exam: -> Chest Pain [id number] EKG, 12 LEAD, INITIAL [#[id number]] Priority: STAT Class: Hospital Performed Resulting Age ncy: GSH MUSE Test ID: [id number] Reason for Exam: -> Chest Pain Released on: 08/16/2019 9:02 PM [id number] 0 XR CHEST PORT [#[id number]] Priority: STAT Class: Hospital Performed Stand ing Order Information Remaining Occurrences:0/1 Interval:ONE TIME Last released:0 08/16/2019 Released orders: Sat Aug 16, 2019 9:02 PM by: INDIO POLLOCK Reason for Exam -> Chest Pain [id number] XR CHEST PORT [#[id number]] Priority: STAT Class: H ospital Performed Resulting Agency: [facility] Test ID: [id number] Reason for Exam -> Chest Pain Rele ased on: 08/16/2019 9:02 JORDYMaxwell waddell MR#: [id number] * Rm: [id number] Ht: 5' 10" Wt: 280 lb Code: Prior Iso:Diagnosis:Allergies: No Known Allergies -------- Current as of: 08/16/192245 GI=Given IC=IV Complet ed NB=New Bag --aspirin (ASPIRIN) tablet 325 mg #[id number] Admin Amount: 1 Tab (1 x 325 mg Tab) Ordered Dose: 325 mg Route: Oral Freq: ONCE Start Date: 12/24/13 No administration times (back 96 hours, ahead 96 hours). ------diphenhydrAMINE (BENADRYL) capsule 50 mg #[id number] Admin Amount: 1 Cap (1 x 50 mg Cap) Ordered Dose: 50 mg Route: Ora l Freq: NOW Start Date: 12/24/13 No administration times (back 96 hours, ahe ad 96 hours). ------diazepam (VALIUM) tablet 5 mg #[id number] Admin Amount: 1 Tab (1 x 5 mg Tab) Ordered Dose: 5 mg Route: Oral Freq: ON CE Start Date: 12/24/13 No administration times (back 96 hours, ahead 96 hours). ------lidocaine (XYLOCAINE) 10 mg/mL (1 %) injection 1-30 mL #[id number] Admin Amount: 1-30 mL Ordered Dose: 1-30 mL Route: IntraDERMal Freq: ONCE Start Date: 12/24/13 No administration times (back 96 hours, ahead 96 hours). ------heparin (PF) 2 units/ml in NS infusion 2,000 Units #[id number] Admin Amount: 1,000 mL = 2,000 Units of 2 Units/mL Ordered Dose: 1,000 mL [place]: Irrigation Freq: ONCE Start Date: 12/24/13 No administration times (back 96 hours, ahead 96 hours). ------heparinized saline 2 units/mL infusion 1,000 Units #[id number] Admin Amount: 500 mL = 1,000 Units of 2 Units/mL Ordered Dose: 500 mL [place]: IntraarTERial Freq: ONCE Start Date: 12/24/13 No administration times (back 96 hours, ahead 96 hours). ------0.9% sodium chloride infusion #[id number] Ordered Dose: 75 mL/hr Route: IntraVENous Freq: CONTINUOUS Start Date: 12/24/13 Rate: 75 mL/hr Duration: No administration times (back 96 hours, ahead 96 hours). ------ioversol (OPTIRAY) 320 mg iodine/mL contrast injection 1-100 mL #[id number] Admin Amount: 1-100 mL Ordered Dose: 1-100 mL Route: IntraVENous Freq: RAD O NCE Start Date: 12/24/13 No administration times (back 96 hours, ahead 96 hours).Maxwell Bray MR#: [id number] * Rm: [id number]: 5' 10" Wt: 280 lb Co de: Prior Iso:Diagnosis:Allergies: No Known Allergies -------- Current as of: 08/16/192245 GI=Given IC=IV Complet ed NB=New Bag --gadobutrol (GADAVIST) contrast solution 1-10 mL #[id number] Admin Amount: 1-10 mL Ordered Dose: 1-10 mL Route: IntraVENous Freq: RAD O NCE Start Date: 01/13/14 No administration times (back 96 hours, ahead 96 hours). ------sodium chloride (NS) flush 5-10 mL #[id number] Admin Amount: 5-10 mL Ordered Dose: 5-10 mL Route: IntraVENous Freq: RAD ONCE Start Date: 01/13/14 No administration times (back 96 hours, ahead 96 hours). ------sodium chloride (NS) 0.9 % flush #[id number] Ordered Dose: Route: Freq: Start Date: 01/13 No administration times (back 96 hours, ahead 96 hours). ------morphine injection 2 mg #[id number] Admin Amount: 1 mL = 2 mg of 2 mg/mL Ordered Dose: 2 mg Route: IntraVENous Freq: NOW Start Date: 03/13/15 No administration times (back 96 hours, ahe ad 96 hours). ------influenza vaccine (4 yr+)(PF) (FLUCELVAX QUAD) inj ection 0.5*#[id number] Admin Amount: 0.5 mL Ordered Dose: 0.5 mL Route: IntraMUSCular Freq: PRIOR TO DISCHARGE Start Date: 03/30/16 No administration times (back 96 hours, ahead 96 hours). ------oxyCODONE-acetaminophen (PERCOCET) 5-325 mg per tablet 1 Tab #[id number] Admin Amount: 1 Tab Ordered Dose: 1 Tab Route: Oral Freq: NOW Start Date: 09/07/17 No administration times (back 96 hours, ahead 96 hours). ------barium sulfate (READICAT) 2.1 % (w/v), 2.0 % (w /w) oral suspension 9*#[id number] Admin Amount: 900 mL Ordered Dose: 900 mL Route: Oral Delgado q: RAD ONCE Start Date: 10/15/17 No administration times (back 96 hours, ahead 96 hours). ------iopamidol (ISOVUE 300) 61 % contrast injection 100 mL #[id number] Admin Amount: 100 mL Ordered Dose: 100 mL Route: IntraVENous Freq: RAD ONC E Start Date: 10/15/17 No administration times (back 96 hours, ahead 96 hours).Maxwell Bray MR#: [id number] * Rm: [id number]: 5' 10" Wt: 280 lb Code: Prior Iso:Diagnosis:Allergies: No Known Allergies -------- Current as of: 08/16/192245 GI=Given IC=IV Complet ed NB=New Bag --risperiDONE (RisperDAL m-tabs) disintegrating tablet 1 mg #[id number] Admin Amount: 1 Tab (1 x 1 mg Tab) Ordered Dose: 1 mg Route: Oral Freq: ONCE Start Date: 12/24/17 No administration times (back 96 hours, ahead 96 hours). ------ALPRAZolam (XANAX) tablet 2 mg #[id number] Admin Amount: 4 Tab (4 x 0.5 mg Tab) Ordered Dose: 2 mg Route: Ora l Freq: NOW Start Date: 12/24/17 No administration times (back 96 hours, ahe ad 96 hours). ------lamoTRIgine (LaMICtal) tablet 100 mg #[id number] Admin Amount: 1 Tab (1 x 100 mg Tab) Ordered Dose: 100 mg Route: Oral Delgado q: ONCE Start Date: 12/24/17 No administration times (back 96 hours, ahead 96 hours). ------OLANZapine (ZyPREXA zydis) disintegrating tablet 5 mg #[id number] Admin Amount: 1 Tab (1 x 5 mg Tab) Ordered Dose: 5 mg Route: Oral Delgado q: ONCE Start Date: 12/25/17 No administration times (back 96 hours, ahead 96 hours). ------LORazepam (ATIVAN) tablet 2 mg #[id number] Admin Amount: 4 Tab (4 x 0.5 mg Tab) Ordered Dose: 2 mg Route: Ora l Freq: NOW Start Date: 12/25/17 No administration times (back 96 hours, [facility] ad 96 hours). ------LORazepam (ATIVAN) injection 1 mg #[id number] Admin Amount: 0.5 mL = 1 mg of 2 mg/mL Ordered Dose: 1 mg Route: Int TrevorENous Freq: NOW Start Date: 12/25/17 No administration times (back 96 hours, e ad 96 hours). ------barium sulfate (EZ PAQUE) 96 % (w/w) contrast suspension 17 6 g #[id number] Admin Amount: 176 g Ordered Dose: 176 g Route: Oral Freq: RAD ONCE Start Date: 08/02/18 No administration times (back 96 hours, ahead 96 hours). ------barium sulfate (EZ PAQUE) 96 % (w/w) contrast s uspension 176 g #[id number] Admin Amount: 176 g Ordered Dose: 176 g Route: Oral Delgado q: RAD ONCE Start Date: 08/02/18 No administration times (back 96 hours, ahead 96 hours).Luisito Maxwell donovan MR#: [id number] * Rm: [id number]: 5' 10" Wt: 280 lb Co de: Prior Iso:Diagnosis:Allergies: No Known Allergies -------- Current as of: 08/16/192245 GI=Given IC=IV Complet ed NB=New Bag --aspirin chewable tablet 162 mg #[id number] Admin Amount: 2 Tab (2 x 81 mg Tab) Ordered Dose: 162 mg Route: Oral Freq: NOW Start Date: 08/10/19 No administration times (back 96 hours, ahead 96 hours). ------famotidine (PF) (PEPCID) 20 mg in 0.9% sodium chloride 10 mL inje cti*#[id number] Admin Amount: 20 mg Ordered Dose: 20 mg Route: IntraVENous Freq: EVERY 12 H OURS Start Date: 08/16/19 Administration times (back 96 hours, ahead 96 hours): 08/16/19: 2119G I 08/17/19: 89908/18/19: 89908/19/19: 89908/20/19: 899 2099 ---0.9% sodium chloride infusion 1,000 mL #[id number] Admin Amount: 1,000 mL Ordered Dose: 1,000 mL Route: IntraVENous Freq: ONC E Start Date: 08/16/19 Rate: 1,000 mL/hr Duration: Administration times (back 96 hours, ahead 96 hours): 08/16/19: 2119NB 2245IC -----methylPREDNISolone (PF) (Solu-MEDROL) injection 125 mg #[id number] Admin Amount: 2 mL = 125 mg of 125 mg/2 mL Ordered Dose: 125 mg Route: Int raVENous Freq: NOW Start Date: 08/16/19 Administration times (back 96 hours, ahe ad 96 hours): 08/16/19: 2118GI -----aspirin chewable tablet 162 mg #[id number] Admin Amount: 2 Tab (2 x 81 [...] mg by mouth three (3) times daily.Dispense [place] unt:Start Date:End Date:Doc. Provider: Paul Bradford MDpredniSONE [...] With:Ritika Canas M DDetails:In 2 daysComments:Contact Info:[address] [facility] [phone]-up With:[facility] DEPARTMENTDetails:Comments:As needed, If symptoms worsenContact Info:[address] [place] [phone] Name Value Range Interpretation Code Description Data Melani rce(s) Supporting Document(s ) ID Date Data Source [id number] 08/16/2019 10:45:45 PM [facility] IV site clean/dry/intact, gauze dressing applied. Pt received written and verbaldischarge instructions. Verbalize d understanding of same. Ambulated out of EDwith steady gait and in no distress. Name Value Range Interpretation Code Description Data Melani rce(s) Supporting Document(s ) ID Date Data Source [id number] 08/16/2019 09:58:14 PM [facility] Name Value Range Interpretation Description Data Sup porting Code Source(s) Document(s ) [place] 0.21 0.6-1.2 Below low normal [facility] [Moles/volu MMOL/L [facility]] in Hospital Serum or Plasma ID Date Data Source [id number] 08/16/2019 09:52:19 PM [facility] Name Value Range Interpretation Code Description Data Melani rce(s) Supporting Document(s ) Fibrin <500 [facility] - Good D-dimer FEU [facility] [Mass/volume] Hospital in Platelet poor plasma (NOTE)Combination of a D-Dimer result wi thin the reference range and a lowclinical pretest probability has good negative pr edictive value fordeep venous thrombosis.If results are utilized for VTE evaluation, <500 ng/ml is consideredto be negative. ID Date Data Source [id number] 08/16/2019 09:44:39 PM EST [facility] Name Value Range Interpretation Description Data Sup porting Code Source(s) Document(s ) Troponin 0.00-0.05 [facility] - Good I.cardiac [facility] [Mass/volume Hospital ] in Serum or Plasma [...] to 1.50 ng/mL ID Date Data Source [id number] 08/16/2019 09:44:39 PM EST [facility] Value Range Interpretation Description Data Sup porting Code Source(s) Document(s ) Sodium 138 136-145 [facility] - Good [Moles/volume] mmol/L [facility] in Serum or Hospital Plasma Potassium 3.4 3.5-5.1 Below low normal [facility] - Good [Moles/volume] mmol/L [facility] in Serum or Hospital Plasma Chloride 108 98-107 Above high normal [facility] - Good [Moles/volume] mmol/L [facility] in Serum or Hospital Plasma Carbon 20 21-32 Below low normal [facility] - Good dioxide, total mmol/L [facility] [Moles/volume] Hospital in Serum or Plasma Anion gap in 14 10-20 [facility] - Good Serum or mmol/L [facility] Plasma Hospital Glucose 105 74-106 [facility] - Good [Mass/volume] mg/dL [facility] in Serum or Hospital Plasma Urea nitrogen 20 mg/dL 7-18 Above high normal [facility] - Good [Mass/volume] [facility] in Serum or Hospital Plasma Creatinine 0.90 0.70-1.3 [facility] - Good [Mass/volume] mg/dL 0 [facility] in Serum or Hospital Plasma Glomerular >60 [facility] - Good filtration [facility] rate/1.73 sq M Hospital predicted among blacks [Volume Rate/Area] in Serum or Plasma by Creatinine-bas ed formula (MDRD) Glomerular >60 [facility] - Good filtration [facility] rate/1.73 sq M Hospital predicted among non-blacks [Volume Rate/Area] in Serum or Plasma by Creatinine-bas ed formula (MDRD) (NOTE)Estimated GFR is calculated using the Modification of Diet in RenalDisease (MDRD) Study equation, reported for both Americans(GFRAA) and non- Americans (GFRNA), and normalized to 1.7 4c8nhha surface area. The physician must decide which [...] normal [facility] - Good Serum or Plasma [facility] ital Bilirubin.total 0.3 mg/dL 0.2-1.0 [facility] - Good [Mass/volume] in Serum or [facility] Plasma Alanine aminotransferase 37 U/L 13-61 [facility] - Good [Enzymatic activity/volume] [facility] in Serum or Plasma Aspartate aminotransferase 22 U/L 15-37 [facility] HS - Good [Enzymatic activity/volume] [facility] in Serum or Plasma by With P-5'-P Alkaline phosphatase 98 U/L 45-117 [facility] - G ood [Enzymatic activity/volume] [facility] in Serum or Plasma Protein [Mass/volume] in 7.0 g/dL 6.4-8.2 [facility] - Good Serum or Plasma [facility] ital Albumin [Mass/volume] in 3.7 g/dL 3.5-4.7 [facility] - Good Serum or Plasma by [facility] ospital Bromocresol purple (BCP) dye binding method Globulin [Mass/volume] in 3.3 g/dL 1.7-4.7 [facility] - Good Serum by calculation [facility] Albumin/Globulin [Mass 1.1 0.7-2.8 [facility] - Good Ratio] in Serum or Plasma [facility] ID Date Data Source [id number] 08/16/2019 09:44:39 PM EST [facility] - Good [facility] Name Value Range Interpretation Description Data Sup porting Code Source(s) Document(s ) Magnesium 2.3 mg/dL 1.6-2.6 [facility] - Good [Mass/volume] [facility] in Serum or Hospital Plasma ID Date Data Source [id number] 08/16/2019 09:23:23 PM EST [facility] - Good [facility] Name Value Range Interpretation Description Data Sup porting Code Source(s) Document(s ) Leukocytes 7.6 K/uL 4.8-10.6 [facility] - [#/volume] in Good Blood by [facility] Automated count [facility] Erythrocytes 4.97 4.70-6.0 [facility] - [#/volume] in M/uL 0 Good Blood by [facility] Automated count Hospital Hemoglobin 15.2 14.0-18. [facility] - [Mass/volume] in g/dL 0 Good Blood [facility] Hematocrit 45.0 % 42.0-52. [facility] - [Volume 0 Good Fraction] of [facility] Blood by Hospital Automated count Erythrocyte mean 90.5 FL 81.0-94. [facility] - corpuscular 0 Good volume [Entitic [facility] volume] by Hospital Automated count Erythrocyte mean 30.6 PG 27.0-35. [facility] - corpuscular 0 Good hemoglobin [facility] [Entitic mass] [facility] by Automated count Erythrocyte mean 33.8 30.7-37. [facility] - corpuscular g/dL [address] [facility] [Mass/volume] by Automated count Erythrocyte 13.0 % 11.5-14. [facility] - distribution 0 Good width [Ratio] by [facility] Automated count Hospital Platelets 183 K/uL 130-400 [facility] - [#/volume] in [facility] Blood by [facility] Automated count [facility] Platelet mean 8.5 FL 9.2-11.8 Below low normal [facility] - volume [Entitic Good volume] in Blood [facility] by Automated Hospital count Nucleated 0.0 PER 0 [facility] - erythrocytes/100 100 WBC Good leukocytes [facility] [Ratio] in Blood [facility] Nucleated 0.00 0.0-0.01 [facility] - erythrocytes K/uL Good [#/volume] in [facility] Segmented 68 % 48.0-72. [facility] - neutrophils/100 0 Good leukocytes in [facility] Lymphocytes/100 19 % 18.0-40. [facility] - leukocytes in 0 [facility] Monocytes/100 7 % 2.0-12.0 [facility] - leukocytes in [facility] Eosinophils/100 5 % 0.0-7.0 [facility] - leukocytes in [facility] Basophils/100 1 % 0.0-3.0 [facility] - leukocytes in [facility] Immature 1 % 0-0.5 Above high normal [facility] - granulocytes/100 Good leukocytes in [facility] Blood by Hospital Automated count Segmented 5.2 K/UL 2.3-7.6 [facility] - neutrophils Good [#/volume] in [facility] Lymphocytes 1.5 K/UL 0.9-4.2 [facility] - [#/volume] in [facility] Monocytes 0.6 K/UL 0.1-1.7 [facility] - [#/volume] in [facility] Eosinophils 0.3 K/UL 0.0-1.0 [facility] - [#/volume] in [facility] Basophils 0.0 K/UL 0.0-0.4 [facility] - [#/volume] in [facility] Immature 0.0 K/UL 0.0-0.17 [facility] - granulocytes Good [#/volume] in [facility] Blood by Hospital Automated count Differential [facility] - cell count Good method - Blood [facility] ID Date Data Source [id number] 08/16/2019 08:50:30 PM [facility] sudden onset of difficulty breathing and rash while eating leticia food, rashacross face and chest slightly raised, no vesicles, denies any chest pain deniesany itching at this time. Went to urgent care, recei nataliia benadryl 50 mg IMfrom EMS. Name Value Range Interpretation Code Description Data [facility] rce(s) Supporting Document(s ) ID Date Data Source [id number] 08/11/2019 08:03:02 AM [facility] History:Chest pain. Shortness of breath. [...] Value Range Interpretation Code Description Data [facility](s) Supporting Document(s ) ID Date Data Source [id number] 08/11/2019 04:22:14 AM [facility] The history is provided by [...] mortality cardiac cath at [facility] approx 6-8 months ag o Other [...] medical: Not on fileTobacco Use Smoking status: Same r Smoker Smokeless tobacco: Never UsedSubstance and Sexual Activity Alcoh ol use: No Frequency: Never Drug use: No Sexual activity: NeverLifestyle Physica l activity: Days per week: Not on file Minutes per session: Not on file Stress : Not on fileRelationships Social connections: Talks on phone: Not on olivier e Gets together: Not on file Attends religion service: Not on file 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 [...] QTC Calculation (Bezet) 435 ms Calculated P [place] 55 degrees Calculated R [place] 34 degrees Calculated T [place] 9 degrees Diagnosis S inus tachycardiaOtherwise normal [...] Time: 08/11/19 12:01 AMResult Value Ref Range [place] level <0.20 (L) 0.6 - 1.2 MMOL/LLACTIC [...] 36N*ENCOUNTER 08/11/2019 01:42:54 AM EST [facility] - [facility] [id number] [facility] EMERGENCY DEPARTMENT [address] [place] [address] [phone]/ Maxwell Mitchell (Male) [id number] JOSE 2 ED Dispo:DISCHARGE Chief Complaint: Chest Pain, Shortne ss of Breath Diagnosis: Dyspnea, unspecified type [] Current Providers: Yeimy cochran: Javier Quezada Primary Nurse: ELIS WilsonN: [id number] Print Grou p [phone] [facility] MrnMRN: [id number] Print Group [phone] - Bs i Ed Medva Age SexDOB 1970 AGE 49 SEX Male Primary Care Provider: Ritika Canas MD Phone: [phone]: (No Known Allergies)Date Reviewed: 08/10/2019Reviewed by: Chiquis Christianson CompleteED Provider Notes: No notes of this type exist for this encounter.ED Orders [id number] E KG, 12 LEAD, INITIAL [#[id number]] Priority: STAT Class: Hospital Performed Stand ing Order Information Remaining Occurrences:0 Interval:ONE TIME Last released:0 08/10/2019 Released orders: Arabella Aug 10, 2019 10:17 PM by: CHIQUIS CHRISTIANSON Reason for Exam: -> CP SOB [id number] EKG, 12 LEAD, INITIAL [#[id number]] Priority: STAT Class: Hospital Performed Specimen Collected: 08/10/2019 10:14 PM Resulting Agency: [facility] Test ID: [id number] Reason for Exam: -> CP SOB Released on: 08/10/2019 10:17 PM [id number] EKG, 12 LE AD, INITIAL [#[id number]] Priority: STAT Class: Hospital Performed Standing Or mariano Information Remaining Occurrences:0/1 Interval:ONE TIME Last released:0 08/10/2019 Released orders: Eden Aug 10, 2019 11:51 PM by: MAYANK QUEZADA V Reason fo r Exam: -> Chest Pain [id number] EKG, 12 LEAD, INITIAL [#[id number]] Priority: STAT C lass: Hospital Performed Resulting Agency: [facility] Test ID: [id number] Reason for Exam: -> Chest P ain Released on: 08/10/2019 11:51 PM [id number] CUT OUT STITCHER - ED ONLY [#[id number]] Priority: STAT Class: Hospital Performed Standing Order Information Remaining Occurre nces:0/1 Interval:Continuous Last released:08/10/2019 Released orders : Eden Aug 10, 2019 11:51 PM by: MAYANK QUEZADA V Type: -> Bedside [id number] PULSE OXIMETR Y CONTINUOUS [#[id number]] Priority: STAT Class: Hospital Performed Standing Or mariano Information Remaining Occurrences:0/1 Interval:CONTINUOUS Last released :08/10/2019 Released orders: Eden Aug 10, 2019 11:51 PM by: MAYANK QUEZADA V [id number] PULSE OXIMETRY SPOT CHECK [#[id number]] Priority: STAT Class: Hospital Performe d Standing Order Information Remaining Occurrences:0/1 Interval:ONE TIME Last r eleased:08/10/2019 Released orders: Eden Aug 10, 2019 11:51 PM by: MAYANK QUEZADA V [id number] OBTAIN OLD EKG [#[id number]] Priority: Routine Class: Hospital Perfo rmed Standing Order Information Remaining Occurrences:0/1 Interval:ONE TI ME Last released:08/10/2019 Released orders: Eden Aug 10, 2019 11:51 PM by: MAYANK QUEZADA V [id number] CUT OUT STITCHER - ED ONLY [#[id number]] Priority: STAT Class: H ospital Performed Type: -> Bedside Released on: 08/10/2019 11:51 PM [id number] PULSE OXIM ETRY CONTINUOUS [#[id number]] Priority: STAT Class: Hospital Performed Released on : 08/10/2019 11:51 PM [id number] PULSE OXIMETRY SPOT CHECK [#[id number]] Priority: STAT C lass: Hospital Performed Released on: 08/10/2019 11:51 PM [id number] OBTAIN OLD EKG [#[id number]] Priority: STAT Class: Hospital Performed Released on: 08/10/2019 11: 51 PM [id number] RT--OXYGEN CANNULA [#[id number]] Priority: STAT Class: H ospital Performed Standing Order Information Remaining Occurrences:0/1 Interval:CONTIN UOUS Last released:08/10/2019 Released orders: Arabella Aug 10, 2019 11:51 PM by: MAYANK PRADO V Comment:TITRATE UP TO 4 L / MINUTE TO MAINTAIN O2 SATS GREATER THAN OR EQUAL TO 94% LPM -> 2 Indications for O2? -> CHEST PAIN [id number] RT--OXYGEN CANNULA [#[id number]] Priority: STAT Class: Hospital Performed Comment:TITRATE UP TO 4 L / MINUTE TO MAINTAIN O2 SATS GREATER THAN OR EQUAL TO 94% LPM -> 2 Indications fo r O2? -> CHEST PAIN Released on: 08/10/2019 11:51 PM [id number] DIET NPO [#[id number]] Priority: STAT Class: Hospital Performed Standing Order Information Remaining Occurrences:0/1 Interval:DIET EFFECTIVE NOW Last released:08/10 Released orders: Arabella Aug 10, 2019 11:51 PM by: MAYANK QUEZADA V NPO options: - > With Meds [id number] DIET NPO [#[id number]] Priority: STAT Class: H ospital Performed NPO options: -> With Meds Released on: 08/10/2019 11:51 PM [id number] SALINE LOCK IV [#[id number]] Priority: STAT Class: Hospital Performed Standing O rder Information Remaining Occurrences:0/1 Interval:ONE TIME Last released:0 08/10/2019 Released orders: Arabella Aug 10, 2019 11:51 PM by: MAYANK QUEZADA V IVT11 SALI NE LOCK IV [#[id number]] Priority: STAT Class: Hospital Performed Relea sed on: 08/10/2019 11:51 PM [id number] METABOLIC PANEL, COMPREHENSIVE [#[id number]] Bridgette ority: STAT Class: ER Collect Standing Order Information Remaining Occurrences:0/1 In terval:ONE TIME Last released:08/10/2019 Released orders: Sun Aug 10, 2019 11:51 PM by: MAYANK QUEZADA V [id number] CBC WITH AUTOMATED DIFF [#[id number]] Priority: STAT Class: ER Collect Standing Order Information Remaining Occurrences:0/1 Inter haile:ONE TIME Last released:08/10/2019 Released orders: Sun Aug 10, 2019 11:51 PM by: MAYANK QUEZADA V [id number] TROPONIN I [#[id number]] Priority: STAT Class: ER Collect Standing Order Information Remaining Occurrences:0/1 Inter haile:ONE TIME Last released:08/10/2019 Released orders: Sun Aug 10, 2019 11:51 PM by: MAYANK QUEZADA V [id number] MAGNESIUM [#[id number]] Priority: STAT Class: ER Collect Standing Order Information Remaining Occurrences:0/1 Inter haile:ONE TIME Last released:08/10/2019 Released orders: Sun Aug 10, 2019 11:51 PM by: MAYANK QUEZADA V [id number] BNP [#[id number]] Priority: STAT Class: ER Collect Standing Order Information Remaining Occurrences:0/1 Inter haile:ONE TIME Last released:08/10/2019 Released orders: Sun Aug 10, 2019 11:51 PM by: MAYANK QUEZADA V [id number] D DIMER [#[id number]] Priority: STAT Class: ER Collect Standing Order Information Remaining Occurrences:0/1 Inter haile:ONE TIME Last released:08/10/2019 Released orders: Sun Aug 10, 2019 11:51 PM by: MAYANK QUEZADA V [id number] PROTHROMBIN TIME + INR [#[id number]] Priority: STAT Class: ER Collect Standing Order Information Remaining Occurrences:0/1 Inter haile:ONE TIME Last released:08/10/2019 Released orders: Sun Aug 10, 2019 11:51 PM by: MAYANK QUEZADA V [id number] PTT [#[id number]] Priority: STAT Class: ER Collect Specimen Source: Blood Standing Order Information Remaining Occurrences:0 /1 Interval:ONE TIME Last released:08/10/2019 Released orders: Sun Aug 10, 2019 11:51 PM by: MAYANK QUEZADA V [id number] LITHIUM [#[id number]] Pr iority: STAT Class: ER Collect Standing Order Information Remaining Occurrences:0/1 I nterval:ONE TIME Last released:08/10/2019 Released orders: Sun Aug 10, 2019 11:51 PM by: MAYANK QUEZADA V [id number] METABOLIC PANEL, COMPREHENSIVE [#[id number]] Bridgette ority: STAT Class: ER Collect Specimen Source: Plasma Specimen Collected: 08/11/2019 12:01 AM Resulting Agency: [facility] Test ID: MPL Released on: 08/10/2019 11:51 PM [id number] CBC WITH AUTOMATED DIFF [#[id number]] Priority: STAT Class: E R Collect Specimen Source: Whole Blood Specimen Collected: 08/11/2019 12:01 AM Resulting Agency: [facility] Test ID: [id number] Released on: 08/10/2019 11:51 PM [id number] TROPON IN I [#[id number]] Priority: STAT Class: ER Collect Specimen Source: [place] sma Specimen Collected: 08/11/2019 12:01 AM Resulting [facility] RY Test ID: TROIP Released on: 08/10/2019 11:51 PM [id number] MAGNESIUM [#[id number]] Priority: STAT Class: ER Collect Specimen Source: Plasma Specimen Collec hyun: 08/11/2019 12:01 AM Resulting Agency: [facility] Test ID: MGPL Re leased on: 08/10/2019 11:51 PM [id number] BNP [#[id number]] Priority : STAT Class: ER Collect Specimen Source: Plasma Specimen Collected: 08/11/2019 12:01 AM Resultin g Agency: [facility] Test ID: BNPPB Released on: 08/10/2019 11:51 PM [id number] 74 D DIMER [#[id number]] Priority: STAT Class: ER Collect Speci men Source: Plasma Specimen Collected: 08/11/2019 12:01 AM Resulting Agency: [facility] Test ID: DDIME Released on: 08/10/2019 11:51 PM [id number] PROTHROMBIN TIME + INR [#[id number]] Priority: STAT Class: ER Collect Specimen Source: Plasma Specimen Collec hyun: 08/11/2019 12:01 AM Resulting Agency: [facility] Test ID: APTHR R eleased on: 08/10/2019 11:51 PM [id number] PTT [#[id number]] Priorit y: STAT Class: ER Collect Specimen Source: Plasma Specimen Collected: 08/11/2019 12:01 AM Resultin g Agency: [facility] Test ID: APTT Released on: 08/10/2019 11:51 PM [id number] LITHIUM [#[id number]] Priority: STAT Class: ER Collect Speci men Source: Serum Specimen Collected: 08/11/2019 12:01 AM Resulting Agency: [facility] Test ID: LI Released on: 08/10/2019 11:51 PM [id number] LACTIC ACID [#[id number]] Priority: STAT Class: ER Collect Standing Order Information Remainin g Occurrences:0/1 Interval:ONE TIME Last released:08/11/2019 Released orders : Mon Aug 11, 2019 12:15 AM by: KATI WILSON [id number] LACTIC ACID [#[id number]] Priority: STAT Class: ER Collect Specimen Source: Plasma Specimen Collec hyun: 08/11/2019 12:01 AM Resulting Agency: [facility] Test ID: LAC Rel eased on: 08/11/2019 12:15 AM ASPIRIN 81 MG CHEWABLE TAB [#[id number]] Priority: STAT Class: Normal [id number] XR CHEST PORT [#[id number]] Priority: STAT Cl ass: Hospital Performed Standing Order Information Remaining Occurrences:0/1 Inter haile:ONE TIME Last released:08/10/2019 Released orders: Sun Aug 10, 2019 11:51 PM by: MAYANK QUEZADA V Reason for Exam -> Chest Pain [id number] XR CHEST PORT [#[id number]] Priority: STAT Class: Hospital Performed Resulting Agency: [facility] Test ID: [id number] Reason for Exam -> Chest Pain Released on: 08/10/2019 11:51 PM [id number] INFLUENZA A & B AG (RAPID TEST) [#[id number]] Priority: STAT Class: ER Collect Sta nding Order Information Remaining Occurrences:0/1 Interval:ONE TIME Last released: 08/10/2019 Released orders: Sun Aug 10, 2019 11:51 PM by: MAYANK QUEZADA V [id number] INFL UENZA A & B AG (RAPID TEST) [#[id number]] Priority: STAT Class: ER Collect Specimen Source : Nasal washing Specimen Collected: 08/11/2019 12:18 AM Resulting Agency: [facility] Test ID: INFLUA Released on: 08/10/2019 11:51 PM [id number] CULTURE, BLOOD [#[id number]] Priority: STAT Class: ER Collect Specimen Source: Blood Standing Order Information Remaining Occurrences:0/1 Interval:ONE TIME Last released:0 08/11/2019 Released orders: SunAug 11, 2019 12:15 AM by: KATI WILSON [id number] CULTU RE, BLOOD [#[id number]] Priority: STAT Class: ER Collect Specimen Source : Blood Standing Order Information Remaining Occurrences:0/1 Interval:ONE TI ME Last released:08/11/2019 Released orders: SunAug 11, 2019 12:15 AM by: KATI WILSON [id number] CULTURE, BLOOD [#[id number]] Priority: STAT Class: E R Collect Specimen Source: Blood Specimen Collected: 08/11/2019 12:33 AM Resulting Agency: [facility] Test ID: HBCS Released on: 08/11/2019 12:15 AM [id number] CULTUR E, BLOOD [#[id number]] Priority: STAT Class: ER Collect Specimen Source: Blo od Specimen Collected: 08/11/2019 12:43 AM Resulting Agency: [facility] Test ID: HBCS Released on: 08/11/2019 12:15 AMLuisitoMaxwell donovan MR#: [id number] Acct#: [id number]* Rm: [id number]: 5' 10" Wt: 280 lb Code: Prior Iso:Diagnosis:Allergies: No Kno wn Allergies -------- Current as of: 08/11/19 0142 GI=Given -------aspirin (ASPIRIN) tablet 325 mg #[id number] Admin Amount: 1 Tab (1 x 325 mg Tab) Ordered Dose: 325 mg Route: Oral Freq: ONCE Start Date: 12/24/13 No administration times (b ack 96 hours, ahead 96 hours). ------diphenhydrAMINE (BENADRYL) capsule 50 mg #[id number] Admin Amount: 1 Cap (1 x 50 mg Cap) Ordered Dose: 50 mg [place]: Oral Freq: NOW Start Date: 12/24/13 No administration times (back 96 hours, ahead 96 hours). ------diazepam (VALIUM) tablet 5 mg #[id number] Admin Amount: 1 Tab (1 x 5 mg Tab) Ordered Dose: 5 mg Route: Oral Freq: ONCE Start Date: 12/24/13 No administration times (back 96 hours, ahead 96 hours). ------lidocaine (XYLOCAINE) 10 mg/mL (1 %) injection 1-3 0 mL #[id number] Admin Amount: 1-30 mL Ordered Dose: 1-30 mL Route: Int raDERMal Freq: ONCE Start Date: 12/24/13 No administration times (back 96 hours, ahead 96 hours). ------heparin (PF) 2 units/ml in NS infusion 2,000 Units #[id number] Admin Amount: 1,000 mL = 2,000 Units of 2 Units/mL Ordered Dose: 1,000 mL Route: Irrigation Freq: ONCE Start Date: 12/24/13 No administration times (back 96 hours, ahead 96 hours). ------heparinized saline 2 units/mL infusion 1,000 Units #[id number] Admin Amount: 500 mL = 1,000 Units of 2 Units/mL Ordered Dose: 500 m L Route: IntraarTERial Freq: ONCE Start Date: 12/24/13 No admini stration times (back 96 hours, ahead 96 hours). ------0.9% sodium chloride infusion #[id number] Ordered Dose: 75 mL/hr Route: IntraVENous Freq: CONTINUOUS Start Date: 12/24/13 Rate: 75 mL/hr Duration: No administration ti mes (back 96 hours, ahead 96 hours). ------ioversol (OPTIRAY) 320 mg iodine/mL contrast inje ction 1-100 mL #[id number] Admin Amount: 1-100 mL Ordered Dose: 1-100 mL [place]: IntraVENous Freq: RAD ONCE Start Date: 12/24/13 No administration times (back 96 hours, ahead 96 hours).Maxwell Bray MR#: [id number] * Rm: ER10-10 Ht: 5' 10" Wt: 280 lb Code: Prior Iso:Diagnosis:Allergies: No Known Allergies -------- Current as of: 08/11/19 0142 GI=Given -------gadobutrol (GADAVIST) contrast solution 1-10 mL #[id number] Admin Amount: 1-10 mL Ordered Dose: 1-10 mL Route: Int raVENous Freq: RAD ONCE Start Date: 01/13/14 No administration times (back 96 hours, ahead 96 hours). ------sodium chloride (NS) flush 5-10 mL #[id number] Admin Amount: 5-10 mL Ordered Dose: 5-10 mL Route: IntraVENo us Freq: RAD ONCE Start Date: 01/13/14 No administration times (back 96 hours, ahe ad 96 hours). ------sodium chloride (NS) 0.9 % flush #[id number] Ordered Dose: Route: Freq: Start Date: 01/13/14 No administration times (back 96 hours, ahead 96 hours). ------morphine injection 2 mg #[id number] Admin Amount: 1 mL = 2 mg of 2 mg/mL Ordered Dose: 2 mg Route: IntraVENous Freq: NOW Start Date: 03/13/15 No administration t imes (back 96 hours, ahead 96 hours). ------influenza vaccine (4 yr+)(PF) (FLUCELVAX Q UAD) injection 0.5*#[id number] Admin Amount: 0.5 mL Ordered Dose: 0.5 mL Route: Int raMUSCular Freq: PRIOR TO DISCHARGE Start Date: 03/30/16 No administration times (back 9 6 hours, ahead 96 hours). ------oxyCODONE-acetam inophen (PERCOCET) 5-325 mg per tablet 1 Tab #[id number] Admin Amount: 1 Tab Ordered Dose: 1 Tab Route: Oral Freq: NOW Start Date: 09/07/17 No administration times (back 96 hours, ahe ad 96 hours). ------barium sulfate (READICAT) 2.1 % (w/v), 2.0 % (w/w) oral suspension 9*#[id number] Admin Amount: 900 mL Ordered Dose: 900 mL Route: Oral Delgado q: RAD ONCE Start Date: 10/15/17 No administration times (back 96 hours, e ad 96 hours). ------iopamidol (ISOVUE 300) 61 % contrast injection 100 mL #[id number] Admin Amount: 100 mL Ordered Dose: 100 mL Route: Int raVENous Freq: RAD ONCE Start Date: 10/15/17 No administration times (back 96 hours, ahead 96 hours).Maxwell Bray MR#: [id number] * Rm: ZF37-30Wj: 5' 1 0" Wt: 280 lb Code: Prior Iso:Diagnosis:Allergies: No Known Allergies -------- Current as of: 08/11/19 0142 GI=Given -------risperiDONE (RisperDAL m-tabs) disintegrating tablet 1 mg #[id number] Admin Amount: 1 Tab (1 x 1 mg Tab) Ordered Dose: 1 mg Route: Oral Freq: ONCE Start Date: 12/24/17 No administration times (back 96 hours, ahead 96 hours). ------ALPRAZolam (XANAX) tablet 2 mg #[id number] Admin Amount: 4 Tab (4 x 0.5 mg Tab) Ordered Dose: 2 mg Route: Oral Freq: NOW Start Date: 12/24/17 No administration times (back 96 hours, ahead 96 hours). ------lamoTRIgine (LaMICtal) tablet 100 mg #[id number] Admin Amount: 1 Tab (1 x 100 mg Tab) Ordered Dose: 100 mg Route: Oral Freq: ONCE Start Date: 12/24/17 No administration times (back 96 hours, ahead 96 hours). ------OLANZapine (ZyPREXA zydis) disintegrating tablet 5 mg #[id number] Admin Amount: 1 Tab (1 x 5 mg Tab) Ordered Dose: 5 mg Route: Oral Freq: ONCE Start Date: 12/25/17 No administration times (back 96 hours, ahead 96 hours). ------LORazepam (ATIVAN) tablet 2 mg #[id number] Admin Amount: 4 Tab (4 x 0.5 mg Tab) Ordered Dose: 2 mg Route: Oral Freq: NOW Start Date: 12/25/17 No administration times (back 96 hours, ahead 96 hours). ------LORazepam (ATIVAN) injection 1 mg #[id number] Admin Amount: 0.5 mL = 1 mg of 2 mg/mL Ordered Dose: 1 mg Route: IntraVENous Freq: NOW Start Date: 12/25/17 No administration ti mes (back 96 hours, ahead 96 hours). ------barium sulfate (EZ PAQUE) 96 % (w/w) contrast suspensio n 176 g #[id number] Admin Amount: 176 g Ordered Dose: 176 g Route: Oral Delgado q: RAD ONCE Start Date: 08/02/18 No administration times (back 96 hours, [facility] ad 96 hours). ------barium sulfate (EZ PAQUE) 96 % (w/w) contrast suspensio n 176 g #[id number] Admin Amount: 176 g Ordered Dose: 176 g Route: Oral Delgado q: RAD ONCE Start Date: 08/02/18 No administration times (back 96 hours, [facility] ad 96 hours).Maxwell Bray MR#: [id number] * Rm: [id number]: 5' 10" Wt: 280 lb Code: Prior Iso:Diagnosis:Allergies: No Known Allergies -------- Current as of: 08/11/19 0142 GI=Given -------aspirin chewable tablet 162 mg #[id number] Admin Amount: 2 Tab (2 x 81 [...] possible for a visit in 1 dayComments:Contact Info:[facility] Kevinsam Rodriguez [address] [facility] [phone]-lc With:Detail s:Comments:As needed, If symptoms worsenContact Info: Name Value Range Interpretation Code Description Data Melani rce(s) Supporting Document(s ) ID Date Data Source [id number] 08/11/2019 01:40:37 AM EST [facility] I have reviewed discharge instructions w ith the patient and spouse. The patientand spouse verbalized understanding.\\ Name Value Range Interpretation Code Description Data Melani rce(s) Supporting Document(s ) ID Date Data Source [id number] 08/16/2019 06:35:29 AM EST [facility] Name Value Range Interpretation Description Data Sup porting Code Source(s) Document(s ) Service comment [facility] Bacteria B[facility] - Good identified in [facility] specimen by Culture ID Date Data Source [id number] 08/16/2019 06:35:28 AM EST [facility] Name Value Range Interpretation Description Data Sup porting Code Source(s) Document(s ) Service comment [facility] Bacteria [facility] - [facility] ID Date Data Source [id number] 08/11/2019 12:56:01 AM EST [facility] Name Value Range Interpretation Description Data Sup porting Code Source(s) Document(s ) Influenza virus NEG [facility] A Ag [Presence] [facility] in [facility] by Immunoassay Influenza virus NEG [facility] B Ag [Presence] [facility] in [facility] by Immunoassay IMMUNOCHROMATOGRAPHIC MEMBRANE ASSAYResu lt: Negative for Influenza A and BNote: A negative result does not exclude an infl uenza virus infection, including H1N1. If more conclusive testing is desired, foll ow-up confirmatory testing is warranted. Specimen source [Identifier] of Unspecified [facility] specimen ID Date Data Source [id number] 08/11/2019 01:35:58 AM EST [facility] Name Value Range Interpretation Description Data Sup porting Code Source(s) Document(s ) Prothrombin 9.6 sec 9.4-11.1 [facility] time (PT) [facility] INR in 0.9 0.8-1.2 [facility] - Good Platelet poor [facility] plasma by Hospital Coagulation assay ID Date Data Source [id number] 08/11/2019 01:35:58 AM EST [facility] Name Value Range Interpretation Description Data Sup porting Code Source(s) Document(s ) aPTT in 23.1 SEC 21.0-28. [facility] - Good Platelet poor 0 [facility] plasma by Hospital Coagulation assay Therapeutic Range = 42.0-60.0 secs ID Date Data Source [id number] 08/11/2019 01:30:36 AM EST [facility] Name Value Range Interpretation Description Data Sup porting Code Source(s) Document(s ) Natriuretic 19 pg/mL 0-100 [facility] peptide B [facility] [Mass/volume] [facility] in Serum or Plasma ID Date Data Source [id number] 08/11/2019 01:25:10 AM EST [facility] Name Value Range Interpretation Code Description Data Supporting Source(s) Document(s ) [place] 0.6-1.2 Below low normal [facility] - [facility] [Moles/volum [facility] e] in Serum Hospital or Plasma ID Date Data Source [id number] 08/11/2019 01:20:56 AM EST [facility] Name Value Range Interpretation Code Description Data Melani rce(s) Supporting Document(s ) Fibrin <500 [facility] - [facility] D-dimer FEU [facility] [Mass/volume] [facility] in Platelet poor plasma (NOTE)Combination of a D-Dimer result wi thin the reference range and a lowclinical pretest probability has good negative pr edictive value fordeep venous thrombosis.If results are utilized for VTE evaluation, <500 ng/ml is consideredto be negative. ID Date Data Source [id number] 08/11/2019 01:09:42 AM [facility] Name Value Range Interpretation Description Data Sup porting Code Source(s) Document(s ) Lactate 1.7 0.4-2.0 [facility] - [facility] [Moles/volu MMOL/L [facility] me] in Hospital Serum or Plasma ID Date Data Source [id number] 08/11/2019 01:09:42 AM EST [facility] Value Range Interpretation Description Data Sup porting Code Source(s) Document(s ) Troponin 0.00-0.05 [facility] - [facility] I.cardiac [facility] [Mass/volume Hospital ] in Serum or Plasma [...] to 1.50 ng/mL ID Date Data Source [id number] 08/11/2019 01:09:42 AM EST [facility] Name Value Range Interpretation Description Data Sup porting Code Source(s) Document(s ) Sodium 140 136-145 [facility] - [facility] [Moles/volume] mmol/L [facility] in Serum or Hospital Plasma Potassium 3.9 3.5-5.1 [facility] - Good [Moles/volume] mmol/L [facility] in Serum or Hospital Plasma Chloride 113 98-107 Above high normal [facility] - Good [Moles/volume] mmol/L [facility] in Serum or Hospital Plasma Carbon 21 21-32 [facility] - Good dioxide, total mmol/L [facility] [Moles/volume] Hospital in Serum or Plasma Anion gap in 10 10-20 [facility] - Good Serum or mmol/L [facility] Plasma Hospital Glucose 90 mg/dL 74-106 [facility] - [facility] [Mass/volume] [facility] in Serum or Hospital Plasma Urea nitrogen 18 mg/dL 7-18 [facility] - Good [Mass/volume] [facility] in Serum or Hospital Plasma Creatinine 0.78 0.70-1.3 [facility] - Good [Mass/volume] mg/dL 0 [facility] in Serum or Hospital Plasma Glomerular >60 [facility] - Good filtration [facility] rate/1.73 sq M Hospital predicted among blacks [Volume Rate/Area] in Serum or Plasma by Creatinine-bas ed formula (MDRD) Glomerular >60 [facility] - Good filtration [facility] rate/1.73 sq M Hospital predicted among non-blacks [Volume Rate/Area] in Serum or Plasma by Creatinine-bas ed formula (MDRD) (NOTE)Estimated GFR is calculated using the Modification of Diet in RenalDisease (MDRD) Study equation, reported for both Americans(GFRAA) and non- Americans (GFRNA), and normalized to 1.7 [id number] surface area. The physician must decide which [...] normal [facility] - Good Serum or Plasma [facility] ital Bilirubin.total 0.5 mg/dL 0.2-1.0 [facility] - Good [Mass/volume] in Serum or [facility] Plasma Alanine aminotransferase 29 U/L 13-61 [facility] - Good [Enzymatic activity/volume] [facility] in Serum or Plasma Aspartate aminotransferase 18 U/L 15-37 BSC HS - Good [Enzymatic activity/volume] [facility] in Serum or Plasma by With P-5'-P Alkaline phosphatase 98 U/L 45-117 [facility] - G ood [Enzymatic activity/volume] [facility] in Serum or Plasma Protein [Mass/volume] in 6.7 g/dL 6.4-8.2 [facility] - Good Serum or Plasma [facility] ital Albumin [Mass/volume] in 3.4 g/dL 3.5-4.7 Below low normal [facility] - Good Serum or Plasma by [facility] ospital Bromocresol purple (BCP) dye binding method Globulin [Mass/volume] in 3.3 g/dL 1.7-4.7 [facility] - Good Serum by calculation [facility] Albumin/Globulin [Mass 1.1 0.7-2.8 [facility] - Good Ratio] in Serum or Plasma [facility] ID Date Data Source [id number] 08/11/2019 01:09:42 AM EST [facility] - [facility] Name Value Range Interpretation Description Data Sup porting Code Source(s) Document(s ) Magnesium 2.1 mg/dL 1.6-2.6 [facility] - Good [Mass/volume] [facility] in Serum or Hospital Plasma ID Date Data Source [id number] 08/11/2019 01:01:18 AM EST [facility] - [facility] Name Value Range Interpretation Description Data Sup porting Code Source(s) Document(s ) Leukocytes 7.7 K/uL 4.8-10.6 [facility] - [#/volume] in Good Blood by [facility] Automated count [facility] Erythrocytes 4.93 4.70-6.0 [facility] - [#/volume] in M/uL 0 Good Blood by [facility] Automated count Hospital Hemoglobin 14.9 14.0-18. [facility] - [Mass/volume] in g/dL 0 [facility] Blood [facility] Hematocrit 44.4 % 42.0-52. [facility] - [Volume 0 Good Fraction] of [facility] Blood by Hospital Automated count Erythrocyte mean 90.1 FL 81.0-94. [facility] - corpuscular 0 Good volume [Entitic [facility] volume] by Hospital Automated count Erythrocyte mean 30.2 PG 27.0-35. [facility] - corpuscular 0 Good hemoglobin [facility] [Entitic mass] Hospital by Automated count Erythrocyte mean 33.6 30.7-37. [facility] - corpuscular g/dL 3 Good hemoglobin [facility] Hospital [Mass/volume] by Automated count Erythrocyte 12.5 % 11.5-14. [facility] - distribution 0 Good width [Ratio] by [facility] Automated count Hospital Platelets 189 K/uL 130-400 [facility] - [#/volume] in Good Blood by [facility] Automated count Hospital Platelet mean 9.0 FL 9.2-11.8 Below low normal [facility] - volume [Entitic Good volume] in Blood [facility] by Automated Hospital count Nucleated 0.0 PER 0 [facility] - erythrocytes/100 100 WBC Good leukocytes [facility] [Ratio] in Blood Hospital Nucleated 0.00 0.0-0.01 [facility] - erythrocytes K/uL Good [#/volume] in [facility] Segmented 59 % 48.0-72. [facility] - neutrophils/100 0 Good leukocytes in [facility] Lymphocytes/100 29 % 18.0-40. [facility] - leukocytes in 0 [facility] Blood [facility] Monocytes/100 7 % 2.0-12.0 [facility] - leukocytes in [facility] Blood [facility] Eosinophils/100 5 % 0.0-7.0 [facility] - leukocytes in [facility] Blood [facility] Basophils/100 1 % 0.0-3.0 [facility] - leukocytes in [facility] Blood [facility] Immature 0 % 0-0.5 [facility] - granulocytes/100 Good leukocytes in [facility] Blood by Hospital Automated count Segmented 4.6 K/UL 2.3-7.6 [facility] - neutrophils Good [#/volume] in [facility] Lymphocytes 2.2 K/UL 0.9-4.2 [facility] - [#/volume] in [facility] Monocytes 0.5 K/UL 0.1-1.7 [facility] - [#/volume] in [facility] Eosinophils 0.4 K/UL 0.0-1.0 [facility] - [#/volume] in [facility] Basophils 0.1 K/UL 0.0-0.4 [facility] - [#/volume] in [facility] Immature 0.0 K/UL 0.0-0.17 [facility] - granulocytes Good [#/volume] in [facility] Hospital Automated count Differential [facility] - cell count Good method - [facility] Procedure Social History Code Duration Value Status Description Data Source(s ) Alcohol intake 01/08/2020 Current completed Current [place] 12:00:00 AM EDT non-drinker non-drinker of [employer] alcohol (finding) [facility] [employer] (finding) Tobacco use and 01/08/2020 Never used completed Never used [facility] exposure 12:00:00 AM EDT [facility] Smoking 01/08/2020 Never smoker completed Never smoker [place] 12:00:00 AM EDT [employer] Alcohol intake 12/25/2019 Current completed Current [place] 12:00:00 AM EDT non-drinker non-drinker of [employer] alcohol (finding) [employer] (finding) Tobacco use and 12/25/2019 Never used completed Never used [facility] exposure 12:00:00 AM EDT [facility] Smoking 12/25/2019 Never smoker completed Never smoker [place] 12:00:00 AM EDT [facility] Alcohol intake 12/12/2019 Current completed Current [place] 12:00:00 AM EDT non-drinker non-drinker of [employer] alcohol (finding) [employer] (finding) Smoking 12/12/2019 Never smoker completed Never smoker [place] 12:00:00 AM EDT [employer] Alcohol intake 12/05/2019 Current completed Current [place] 12:00:00 AM EDT non-drinker non-drinker of [employer] alcohol (finding) [employer] (finding) Tobacco use and 12/05/2019 Never used completed Never used [facility] exposure 12:00:00 AM EDT [employer] Smoking 12/05/2019 Never smoker completed Never smoker [place] 12:00:00 AM EDT [facility] Alcohol intake 12/01/2019 Current completed Current [place] 12:00:00 AM EDT non-drinker non-drinker of [employer] alcohol (finding) [employer] (finding) Smoking 12/01/2019 Never smoker completed Never smoker [place] 12:00:00 AM EDT [facility] Alcohol intake 11/14/2019 Current completed Current [place] 12:00:00 AM EDT non-drinker non-drinker of [employer] alcohol (finding) [employer] (finding) Smoking 11/14/2019 Never smoker completed Never smoker [place] 12:00:00 AM EDT [facility] Alcohol intake 11/10/2019 Current completed Current [place] 12:00:00 AM EDT non-drinker non-drinker of [employer] alcohol alcohol (finding) [employer] (finding) Smoking 11/10/2019 Never smoker completed Never smoker [place] 12:00:00 AM EDT [employer] Alcohol intake 09/06/2019 Current completed Current [place] 12:00:00 AM EDT non-drinker non-drinker of [employer] alcohol alcohol (finding) [employer] (finding) Smoking 09/06/2019 Never smoker completed Never smoker [place] 12:00:00 AM EDT [facility] Alcohol intake 08/16/2019 Current completed Current [place] 12:00:00 AM EST non-drinker non-drinker of [employer] alcohol alcohol (finding) [employer] (finding) Smoking 08/16/2019 Never smoker completed Never smoker [place] 12:00:00 AM EST [employer] Alcohol intake 08/10/2019 Current completed Current [place] 12:00:00 AM EST non-drinker non-drinker of [employer] of alcohol alcohol (finding) [employer] (finding) Smoking 08/10/2019 Never smoker completed Never smoker [place] 12:00:00 AM EST [employer] Alcohol intake 07/21/2019 Current completed Current [place] 12:00:00 AM EST non-drinker non-drinker of [employer] of alcohol alcohol (finding) [employer] (finding) Smoking 07/21/2019 Never smoker completed Never smoker [place] 12:00:00 AM EST [employer] Vital Signs ID Date Data Source UNK Name Value Range Interpretation Code Description Data Source(s) Oxygen saturation 98 % 98 % [place] [facility] in Arterial blood [employer] by [employer] [facility] [employer] Body mass index 48.95 kg/m2 48.95 kg/m2 [facility] ours (BMI) [Ratio] [email or web address] [facility] [employer] Body weight 136.533 kg 136.533 kg [facility] [employer] [facility] Body height 167 cm 167 cm [facility] LIFEMODELER [facility] Respiratory rate 12 /min 12 /min [facility] [employer] [facility] Body temperature 36.56 May 36.56 May [facility] Heart rate 102 /min 102 /min [employer]MSim [facility] [employer] Diastolic blood 60 mm[Hg] 60 mm[Hg] [facility] pressure [facility] [employer] [facility] Systolic blood 100 mm[Hg] 100 mm[Hg] [place] pressure [employer] [facility] [employer] Diastolic blood 80 mm[Hg] 80 mm[Hg] [facility] pressure [employer] [facility] Systolic blood 122 mm[Hg] 122 mm[Hg] [place] pressure [employer] [facility] Respiratory rate 20 /min 20 /min [facility] [employer] [facility] Heart rate 70 /min 70 /min Bon LIFEMODEL[facility] Diastolic blood 70 mm[Hg] 70 mm[Hg] [facility] pressure [employer] [facility] Systolic blood 124 mm[Hg] 124 mm[Hg] [place] pressure [employer] [facility] Respiratory rate 18 /min 18 /min [facility] [employer] [facility] Body temperature 36.56 May 36.56 May [facility] [employer] Heart rate 88 /min 88 /min [facility] [employer] [facility] Diastolic blood 86 mm[Hg] 86 mm[Hg] [facility] pressure [employer] Systolic blood 110 mm[Hg] 110 mm[Hg] [place] pressure [employer] Oxygen saturation 98 % 98 % [facility] in Arterial blood Bela [employer] by Pulse oximetry [facility] [employer] Body mass index 47.98 kg/m2 47.98 kg/m2 [facility] ours (BMI) [Ratio] [facility] Body weight 133.811 kg 133.811 kg Bon [employer]Sonar[employer] Inc Body height 167 cm 167 cm Bon LIFEMODELER Inc Respiratory rate 12 /min 12 /min [facility] urs [employer] Body temperature 36.67 May 36.67 May [facility] [employer] Heart rate 100 /min 100 /min [facility] [employer] [facility] [employer] Diastolic blood 66 mm[Hg] 66 mm[Hg] [facility] pressure [employer] Systolic blood 102 mm[Hg] 102 mm[Hg] [place] pressure [employer] Respiratory rate 20 /min 20 /min [facility] [employer] Heart rate 70 /min 70 /min [facility] [employer] [facility] [employer] Diastolic blood 68 mm[Hg] 68 mm[Hg] [facility] pressure [facility] Systolic blood 120 mm[Hg] 120 mm[Hg] [place] pressure [employer] Respiratory rate 18 /min 18 /min [facility] [employer] Heart rate 68 /min 68 /min [facility] [employer] [facility] [employer] Diastolic blood 68 mm[Hg] 68 mm[Hg] [facility] pressure [facility] Systolic blood 112 mm[Hg] 112 mm[Hg] [place] pressure [employer] Respiratory rate 20 /min 20 /min [facility] [employer] Body temperature 36.56 May 36.56 May [facility] [employer] Heart rate 92 /min 92 /min [facility] [employer] Diastolic blood 70 mm[Hg] 70 mm[Hg] [facility] pressure [employer] Systolic blood 110 mm[Hg] 110 mm[Hg] [place] pressure [facility] Respiratory rate 20 /min 20 /min [facility] Heart rate 68 /min 68 /min [facility] [employer] Diastolic blood 72 mm[Hg] 72 mm[Hg] [facility] pressure [employer] Systolic blood 112 mm[Hg] 112 mm[Hg] [place] pressure [employer] Respiratory rate 20 /min 20 /min [facility] [employer] Heart rate 82 /min 82 /min [facility] [employer] Diastolic blood 66 mm[Hg] 66 mm[Hg] [facility] pressure [employer] Systolic blood 110 mm[Hg] 110 mm[Hg] [place] pressure [employer] Respiratory rate 14 /min 14 /min [facility] [employer] Body temperature 36.89 May 36.89 May [facility] [employer] Heart rate 72 /min 72 /min [facility] SeciAgree [facility] Diastolic blood 74 mm[Hg] 74 mm[Hg] [facility] pressure [employer] Systolic blood 128 mm[Hg] 128 mm[Hg] [place] pressure [employer] Respiratory rate 20 /min 20 /min [facility] [employer] Heart rate 68 /min 68 /min [facility]iAgree [facility] [employer] Diastolic blood 64 mm[Hg] 64 mm[Hg] [facility] pressure [facility] Systolic blood 108 mm[Hg] 108 mm[Hg] [place] pressure [employer] Respiratory rate 18 /min 18 /min [facility] [employer] Heart rate 80 /min 80 /min [facility] [employer] [facility] [employer] Diastolic blood 70 mm[Hg] 70 mm[Hg] [facility] pressure [facility] Systolic blood 98 mm[Hg] 98 mm[Hg] [place] pressure [employer] Respiratory rate 20 /min 20 /min [facility] [employer] Body temperature 36.56 May 36.56 May [facility] [employer] Heart rate 78 /min 78 /min [facility]iAgree [facility] Diastolic blood 60 mm[Hg] 60 mm[Hg] [facility] pressure [employer] Systolic blood 110 mm[Hg] 110 mm[Hg] [place] pressure [employer] Body mass index 48.95 kg/m2 48.95 kg/m2 [facility] ours (BMI) [Ratio] [employer] Body weight 136.533 kg 136.533 kg Bon [employer] [facility] [employer] Respiratory rate 18 /min 18 /min [facility] [employer] Body temperature 36.56 May 36.56 May [facility] [employer] Heart rate 80 /min 80 /min [facility] [employer] Diastolic blood 70 mm[Hg] 70 mm[Hg] [facility] pressure [employer] Systolic blood 128 mm[Hg] 128 mm[Hg] [place] pressure [employer] Oxygen saturation 98 % 98 % [facility] ours in Arterial blood Bela [employer] by [employer]ulse [employer] [facility] [employer] Body mass index 48.95 kg/m2 48.95 kg/m2 [facility] ours (BMI) [Ratio] [employer] [facility] Body weight 136.533 kg 136.533 kg Bon LIFEMODELER Inc Body height 167 cm 167 cm DFMSim [facility] [employer] Respiratory rate 14 /min 14 /min [facility] urs [employer] Body temperature 36.44 May 36.44 May [facility] [employer] Heart rate 98 /min 98 /min [employer] Diastolic blood 60 mm[Hg] 60 mm[Hg] [facility] pressure [employer] Systolic blood 110 mm[Hg] 110 mm[Hg] [place] pressure [employer] Oxygen saturation 96 % 96 % [facility] ours in Arterial blood [employer] by Pulse [employer]ximetry [facility] [employer] Respiratory rate 18 /min 18 /min [facility] [employer] Body temperature 36.72 May 36.72 May [facility] [employer] Heart rate 80 /min 80 /min [facility] SeciAgree [facility] Diastolic blood 88 mm[Hg] 88 mm[Hg] [facility] pressure [employer] Systolic blood 128 mm[Hg] 128 mm[Hg] [place] pressure [employer] Body mass index 48.97 kg/m2 48.97 kg/m2 [facility] ours (BMI) [Ratio] [employer] Body weight 136.578 kg 136.578 kg Bon LIFEMODELER Inc Body height 167 cm 167 cm myaNUMBER Inc Oxygen saturation 98 % 98 % [facility] ours in Arterial blood Bela [employer] by Pulse oximetry [facility] [employer] Body mass index 48.30 kg/m2 48.30 kg/m2 [facility] ours (BMI) [Ratio] [employer] Body weight 134.718 kg 134.718 kg Bon LIFEMODELER Inc Body height 167 cm 167 cm myaNUMBER Inc Respiratory rate 14 /min 14 /min [facility] urs [employer] Body temperature 37.33 May 37.33 May [facility] [employer] Heart rate 100 /min 100 /min myaNUMBER Inc Diastolic blood 68 mm[Hg] 68 mm[Hg] [facility] pressure [employer] Systolic blood 118 mm[Hg] 118 mm[Hg] [place] pressure [employer] Oxygen saturation 98 % 98 % [facility] ours in Arterial blood Bela [employer] by Pulse [employer]ximetry [facility] [employer] Body mass index 47.49 kg/m2 47.49 kg/m2 [facility] ours (BMI) [Ratio] [employer] Body weight 132.45 kg 132.45 kg [employer]aNUMBER Inc Body height 167 cm 167 cm [employer]NUMBER Inc Respiratory rate 12 /min 12 /min [facility] urs [employer] Body temperature 36.44 May 36.44 May [facility] urs [employer] Heart rate 88 /min 88 /min [employer]NUMBER Inc Diastolic blood 70 mm[Hg] 70 mm[Hg] [facility] pressure [employer] Systolic blood 102 mm[Hg] 102 mm[Hg] [place] pressure [employer] Oxygen saturation 92 % 92 % [facility] ours in Arterial blood Bela [employer] by Pulse [employer] Body mass index 45.86 kg/m2 45.86 kg/m2 [facility] ours (BMI) [Ratio] [employer] Body weight 133.811 kg 133.811 kg [employer]NUMBER Inc Body height 170.8 cm 170.8 cm [employer]NUMBER Inc Respiratory rate 12 /min 12 /min [facility] urs [employer] Body temperature 36.67 May 36.67 May Bon [employer] urs [facility] Heart rate 88 /min 88 /min Bon [employer] Diastolic blood 80 mm[Hg] 80 mm[Hg] [facility] pressure [employer] Systolic blood 120 mm[Hg] 120 mm[Hg] [place] pressure [employer] Oxygen saturation 95 % 95 % [facility] ours in Arterial blood [facility] by Pulse oximetry System Inc Respiratory rate 18 /min 18 /min [facility] urs [employer] Body temperature 36.44 May 36.44 May [facility] [employer] Heart rate 100 /min 100 /min myaNUMBER Inc Diastolic blood 80 mm[Hg] 80 mm[Hg] [facility] pressure [employer] Systolic blood 123 mm[Hg] 123 mm[Hg] [place] pressure [employer] Body mass index 46.99 kg/m2 46.99 kg/m2 [facility] ours (BMI) [Ratio] [employer] Body weight 136.079 kg 136.079 kg Bon LIFEMODELER Inc Body height 170.2 cm 170.2 cm myaNUMBER Inc Oxygen saturation 96 % 96 % [facility] ours in Arterial blood [facility] by Pulse [employer]ximetry [employer] Body mass index 45.55 kg/m2 45.55 kg/m2 [facility] ours (BMI) [Ratio] [employer] Body weight 132.904 kg 132.904 kg Bon LIFEMODELER Inc Body height 170.8 cm 170.8 cm [employer]aNUMBER Inc Respiratory rate 14 /min 14 /min [facility] urs [employer] Body temperature 35.89 May 35.89 May [facility] [employer] Heart rate 96 /min 96 /min Bon LIFEMODELER Inc Diastolic blood 78 mm[Hg] 78 mm[Hg] [facility] pressure [employer] Systolic blood 116 mm[Hg] 116 mm[Hg] [place] pressure [employer] Oxygen saturation 92 % 92 % [facility] in Arterial blood [facility] by Pulse oximetry [employer] Respiratory rate 15 /min 15 /min [facility] urs [employer] Heart rate 96 /min 96 /min [employer]NUMBER Inc Diastolic blood 86 mm[Hg] 86 mm[Hg] [facility] pressure [employer] Systolic blood 121 mm[Hg] 121 mm[Hg] [place] pressure [employer] Body mass index 40.18 kg/m2 40.18 kg/m2 [facility] ours (BMI) [Ratio] [employer] Body weight 127.007 kg 127.007 kg [employer]NUMBER [employer] Body height 177.8 cm 177.8 cm [employer]NUMBER [employer] Body temperature 36.72 May 36.72 May [facility] [employer] Body temperature 36.33 May 36.33 May [facility] [employer] Oxygen saturation 96 % 96 % [facility] ours in Arterial blood Bela [employer] by Pulse [employer] [facility] [employer] Respiratory rate 21 /min 21 /min [facility] urs [employer] Heart rate 85 /min 85 /min [employer]NUMBER Inc Diastolic blood 88 mm[Hg] 88 mm[Hg] [facility] pressure [employer] Systolic blood 155 mm[Hg] 155 mm[Hg] [place] pressure [employer] Body mass index 40.18 kg/m2 40.18 kg/m2 [facility] ours (BMI) [Ratio] [employer] Body weight 127.007 kg 127.007 kg [employer]NUMBER [employer] Body height 177.8 cm 177.8 cm [employer]NUMBER [employer] Oxygen saturation 98 % 98 % [facility] ours in Arterial blood [facility] by Pulse [employer]ximetry [employer] Body mass index 44.66 kg/m2 44.66 kg/m2 [facility] ours (BMI) [Ratio] [employer] Body weight 128.368 kg 128.368 kg [employer]NUMBER [employer] Body height 169.5 cm 169.5 cm [employer]NUMBER Inc Respiratory rate 12 /min 12 /min [facility] [employer] Body temperature 36.28 May 36.28 May [facility] [employer] Heart rate 68 /min 68 /min [employer]NUMBER Inc Diastolic blood 80 mm[Hg] 80 mm[Hg] [facility] pressure [employer] Systolic blood 122 mm[Hg] 122 mm[Hg] [place] pressure [employer] Patient Treatment Plan of Care Planned Activity [...] [facility] Oral Tablet 12:00:00 AM EDT [employer] olanzapine 5 MG Oral [...] Se cours Bela Tablet 12:00:00 AM EDT [employer] [place] Carbonate 300 MG 11/30/2019 [facility] [...] Bela Release Oral Tablet 12:00:00 AM EDT [employer] [facility] [employer] Bisacodyl 5 MG Delayed 10/31/2019 [facility] Release Oral Tablet 01:50:17 PM EDT [employer] [facility] [employer] Acetaminophen 325 MG Oral 10/29/2019 Francisco Javier n [facility] Tablet 02:44:40 PM EDT [facility] sodium chloride (NS) flush 10/29/2019 B on [facility] 5-40 mL 11:01:53 AM EDT [facility] 24 HR Bupropion 10/17/2019 [facility] Hydrochloride 150 MG 12:00:00 AM EDT [employer] [facility] [employer] Extended Release Oral Tablet 24 HR Bupropion 10/17/2019 [facility] Hydrochloride 300 MG 12:00:00 AM EDT [employer] [facility] [employer] Extended Release Oral Tablet Vraylar 3 mg capsule 09/03/2019 [facility] Bela 12:00:00 AM ED [employer] Amitriptyline Hydrochloride 08/20/2019 [facility] 150 MG Oral Tablet 12:00:00 AM [employer] [place] Carbonate 150 MG 08/16/2019 [facility] Oral Capsule 12:00:00 AM EST [employer] Prednisone 50 MG Oral 08/16/2019 [facility] Bela Tablet 12:00:00 AM EST [employer] Cyclobenzaprine 07/21/2019 [facility] hydrochloride 10 MG Oral 12:00:00 AM EST [employer] Tablet Acetaminophen 325 MG / 07/21/2019 [facility] Oxycodone Hydrochloride 5 12:00:00 AM EST [employer] MG Oral Tablet VRAYLAR 6 mg capsule 07/07/2019 [facility] Bela 12:00:00 AM EST [employer] valacyclovir 1000 MG Oral 07/17/2018 Francisco Javier n [facility] Tablet 12:00:00 AM EST [employer] Clonazepam 2 MG Oral Tablet Bon [facility] cariprazine (Vraylar) 6 mg B on [facility] 24 HR Bupropion [facility] Hydrochloride 300 MG [facility] Extended Release Oral Tablet fluoxetine HCl (PROZAC PO) B on [facility] ziprasidone 80 MG Oral [facility]
[2020-04-01] MEDS ORDERED: KETAMINE HCL 500 MG/10 ML VIAL ONE (08:56)
[2020-04-01 09:59] VITALS: TEMP 98
[2020-04-01 10:36] VITALS: BP 112/73; PULSE 72
== END 2020-04-01 10:30 | disposition home or self-care (01) ==
LOC: FECT 06:56
PROVIDERS: ATTEND Psychiatry & Neurology Psychiatry
PROC: GZB4ZZZ Other Electroconvulsive Therapy (ICD-10-PCS; principal; 2020-04-01 09:30)
DX: F32.9 Major depressive disorder, single episode, unspecified (principal)
CPT/HCPCS: 90870; 94760

== ENCOUNTER 2020-04-02 06:16 | Day surgery (SDC) | payer OTHER ==
[2020-03-29 08:14] VITALS: BMI 47.4
--- OUTSIDE RECORDS SUMMARY | 2020-04-02 06:29 | XMS ---
:1970 Author Organization [facility] Care Team Providers Name Role Phone [...] is protected by Article 27-F of the [place] State Public Health law. If you continue you may haveaccess to information: Regarding HIV / AIDS; Provided by facilities licensed or operated by the [facility] Office of Mental Health; or Provided by the [facility] Office for People With Developmental Disabilities. If such information is present, then the following [facility] mandated warning applies: This information has [...] law may result in a fine or skilled nursing sentence or both. A general authorization for the release of medical or other information is NOT sufficient authorization for further disclosure. Encounters Encounter Providers Location Date Indications Data Source(s ) Outpatient 01/08/2020 03:30:00 [facility]a PM EDT - 01/12/2020 [facility] 10:23:35 AM EDT Patient discharged. Attender: MARIYA CATHERINE 01/01/2020 12:00:00 AM [facility] Attender: MAURICIO 12/30/2019 12:00:00 AM [facility] Attender: MARIYA CATHERINE 12/29/2019 12:00:00 AM [facility] 12/25/2019 04:00:00 PM [facility] 06:48:40 [facility] PM EDT Patient discharged. OL 12/25/2019 [facility] 11:59:00 PM EDT Attender: MARIYA 12/25/2019 12:00:00 AM [facility] Attender: SUSI LONGO 12/25/2019 12:00:00 AM [facility] Attender: MAURICIO 12/24/2019 12:00:00 AM [facility] Attender: MARIYA 12/22/2019 12:00:00 AM [facility] Attender: SUSI LONGO 12/22/2019 12:00:00 AM [facility] Attender: MAURICIO 12/19/2019 12:00:00 AM [facility] Attender: MARIYA 12/18/2019 12:00:00 AM [facility] Attender: GLADIS FUNEZ 12/18/2019 12:00:00 AM [facility] Attender: SUSI LONGO 12/17/2019 12:00:00 AM [facility] Attender: MAURICIO 12/16/2019 12:00:00 AM Bon [facility] Attender: MARIYA 12/15/2019 12:00:[address] [facility] Attender: XANDER COLBERT 12/13/2019 12:00:00 AM Bon [facility] Outpatient 12/12/2019 12:00:00 PM Francisco Javier n [facility] EDT - 12/12/2019 [facility] 01:20:23 PM EDT Patient discharged. Attender: HEATHER 12/08/2019 05:55:36 [facility]2020 [facility] 12:00:00 AM EDT System In c Inpatient Admitter: RITIKA 12/05/2019 12:00:00 General [facility] AM EDT - 12/08/2019 [facility] 03:44:00 PM EDT General Weakness Patient discharged. Outpatient 12/05/2019 12:00:00 AM EDT [facility] Outpatient 12/01/2019 03:45:00 PM EDT - [facility] 12/01/2019 05:01:16 PM EDT Inc Patient discharged. Outpatient 11/14/2019 01:00:00 PM EDT - [facility] 11/18/2019 11:56:43 AM EDT System Inc Patient discharged. Outpatient 11/10/2019 09:00:00 AM EDT - [facility] 11/10/2019 04:44:05 PM EDT System Inc Patient discharged. Inpatient Admitter: RITIKA CANAS 10/29/2019 12:00:00 AM let hargic [facility] EDT - 11/03/2019 [facility] 04:02:00 PM EDT lethargic Patient discharged. Outpatient 09/15/2019 08:22:58 AM EDT [facility] - 09/15/2019 11:59:00 PM Hospital EDT Outpatient 09/10/2019 04:00:00 PM EDT [facility] Outpatient 09/04/2019 03:15:00 PM EDT [facility] Outpatient 08/19/2019 07:31:00 AM EST [facility] ([facility]) Outpatient 08/18/2019 06:35:00 AM EST [facility] ([facility]) Outpatient 08/17/2019 07:16:00 AM EST NEXTGEN ([facility]) Emergency 08/16/2019 12:00:00 AM EST Shortness of Breath [facility] - 08/16/2019 10:45:00 PM Hospital EST Shortness of Breath Patient discharged. Outpatient 08/11/2019 12:05:00 AM EST [facility] Emergency 08/10/2019 12:00:00 AM EST - Chest P ain [facility] 08/11/2019 01:42:00 AM EST Hospital Chest Pain Patient discharged. Outpatient 07/21/2019 04:15:00 PM EST - [facility] [employer] [facility] 07/22/2019 10:51:43 AM EST System Inc Patient discharged. Immunizations Vaccine Date Status Description Data Source(s) New in 2012. 09/04/2019 completed Influenza Vaccine 09/04/2019 [facility] IIV4 12:00:00 AM EDT (Quad) [facility] Medications Medication Brand Start Product Dose Route Administrative Pharmacy [facility] Indications Reaction Description Data Name Date [...] Tablet tablet 5 mg EDT dose (after [facility] OLANZapine [facility] (ZyPREXA) modification) S ystem tablet 5 mg on Tue Inc 12/09/19 at 0900, Until Discontinued Medication administered onsite Olmesartan olmesartan 12/09/2019 20 Oral completed h ypertension Take 1 Tab by Bon medoxomil (BENICAR) 12:00:00 AM mg paul th daily [facility] 20 MG Oral 20 mg EDT for 30 days. Bela Tablet tablet Indications: [facility] olmesartan high blood Sys tem (BENICAR) pressure Inc 20 mg tablet hypertension Losartan losartan 12/09/2019 50 Oral active hypertension Take 1 Tab by Bon Potassium (COZAAR) 12:00:00 AM mg mout h daily [facility] 50 MG Oral 50 mg EDT for 30 days. Bela Tablet tablet Indications: [facility] losartan high blood Syste m [...] doses, Ch arity clonazePAM mg First dose [facility] (KlonoPIN) (after last Sy stem tablet 0.5 modification) Inc mg on 12/07/19 at 1600, Last dose on Denise 12/11/19 at 0900 Medication administered onsite olanzapine OLANZapine 12/07/2019 2.5 Oral aborted 2.5 mg, Oral, Bon 2.5 MG Oral (ZyPREXA) 02:00:00 PM mg D AILY, [facility] Tablet tablet 2.5 EDT dose on Sun Bela OLANZapine mg 12/07/19 at [facility] (ZyPREXA) 1400, Until Sys tem tablet 2.5 Discontinued I nc mg Medication administered onsite Melia lithium 12/07/2019 300 Oral active 300 mg , Oral, Bon Carbonate carbonate SR 02:00:00 PM mg 2 TIMES DAILY, [facility] 300 MG (LITHOBID) EDT First dose o n Bela Extended tablet 300 Sun 0 at [facility] Release Oral mg 1400, Until System Tablet Discontinued Inc lithium carbonate SR (LITHOBID) tablet 300 mg Medication administered onsite Losartan losartan 12/07/2019 50 Oral active 50 m g, Oral, Bon Potassium 50 (COZAAR) 01:00:00 PM mg D AILY, [facility] MG Oral tablet 50 EDT dose on Sun Bela Tablet mg 12/07/19 at [facility] losartan 1300, Until Syst em (COZAAR) Discontinued Inc tablet 50 mg Medication administered onsite furosemide 17916-864-40 12/07/2019 20 IntraVENous complete d 20 mg, [...] 12/13/19 at 0900 Medication administered onsite furosemide 40116-507-47 12/06/2019 20 IntraVENous complete d edema 20 [...] il mg Discontinued Medication administered onsite 0.9% 5093-5968-97 12/05/2019 100 IntraVENous aborted 100 mL/hr, at [...] mg tablet Inc Shared psychotic disorder (HCC) Melia lithium 11/30/2019 aborted Bon Carbonate 300 carbonate [...] (DULCOLAX) 5 Inc mg EC tablet cariprazine 300284 11/01/2019 6 mg Oral active 6 m [...] Ointment ointment EDT Firs t dose on [facility] hydrocortisone 11/01/19 at [facility] (HYTONE) 2.5 % 1800, Unti l System ointment Discontinued Inc Medication administered onsite Docusate docusate 10/31/2019 200 Oral active 200 mg, Oral, Bon Sodium 100 sodium 02:00:00 PM mg DAILY , [facility] MG Oral (COLACE) EDT dose on Sun C harity Capsule capsule 200 10/31/19 at [facility] docusate mg 1400, Until Syst em [...] haloperidoL tablet 5 mg EDT ONCE, 1 [facility] (HALDOL) dose, [facility] tablet 5 mg Denise System 10/30/19 [facility] at 2100 Medication administered onsite amitriptyline 10/30/2019 150 mg Oral active 1 50 mg, Oral, Bon (ELAVIL) tablet 09:00:00 PM EV AN BEDTIME, [facility] 150 mg EDT First dose on [facility] ity Denise 10/30/19 at [facility] 2100, Until System I nc Discontinued Medication administered onsite Haloperidol 2 haloperidoL 10/30/2019 2 mg Oral aborted 2 mg, Oral, Bon MG Oral (HALDOL) 08:01:20 PM EVERY 6 [facility] Tablet tablet 2 mg EDT HOURS Ch arity haloperidoL NEEDED, Healt h (HALDOL) Starting Denise Sys tem tablet 2 mg 10/30/19 at [facility] 2000, Until Sun10/31/19 at 2043, Psychosis, Agitation Medication administered onsite Melia lithium 10/30/2019 300 Oral active 300 mg , Oral, Bon Carbonate carbonate 12:00:00 PM mg 2 T IMES DAILY, [facility] 300 MG Oral tablet 300 EDT First d ose on Bela Tablet mg Denise 10/30/19 at [facility] lithium 1200, Until Syste m carbonate Discontinued In c tablet 300 mg Medication administered onsite Clonazepam 1 clonazePAM 10/30/2019 1 mg Oral active 1 mg, Oral, 2 Bon MG Oral (KlonoPIN) 12:00:00 PM TIME S DAILY, [facility] Tablet tablet 1 mg EDT First dose on Bela clonazePAM Denise 10/30/19 at [facility] (KlonoPIN) 1200, Until Sy stem tablet 1 mg Discontinued [facility] Medication administered onsite 0.9% 6085-8093-58 10/29/2019 100 IntraVENous aborted 100 mL/hr, at Bon sodium 02:55:00 PM mL/h 100 mL/hr, [facility] chloride EDT IntraVENous, Jagruti rity infusion CONTINUOUS, Starting Wed System 10/29/19 at [facility] 1455, Until 11/01/19 at 1446 Medication administered onsite 0.4 ML enoxaparin 10/29/2019 40 SubCUTAneous active 40 mg, Bon Enoxaparin (LOVENOX) 02:55:00 PM mg Gallardo bCUTAneous, [facility] sodium 100 injection 40 EDT EVERY 24 Bela MG/ML mg HOURS, First [facility] Prefilled dose on Sun Sys tem Syringe 10/29/19 at [facility] enoxaparin 1455, Until (LOVENOX) Discontinued injection 40 mg Medication administered onsite Acetaminophen acetaminophen 10/29/2019 650 Oral active 650 mg, Oral, Bon 325 MG Oral (TYLENOL) 02:44:40 PM mg E VERY 4 HOURS [facility] Tablet tablet 650 mg EDT NEEDED , Bela acetaminophen Starting [facility] (TYLENOL) 10[facility]29[facility] mg 1444, Until [facility] Discontinued, Mild Pain, Fever Medication administered onsite sodium 77789-193-13 10/29/2019 mL IntraVENous active 5-40 mL, Bon chloride 02:00:00 PM IntraVENo us, [facility] (NS) flush EDT EVERY 8 Charit y 5-40 mL HOURS, First dose on Wed System 10/29/19 at [facility] 1400, Until Discontinued Medication administered onsite sodium 21848-741-96 10/29/2019 mL IntraVENous active 5-40 mL, Bon [...] XL) 150 mg tablet Vraylar 3 mg 17992-588-99 09/03/2019 6 Oral aborted depre ssion Take [...] EST NOW, 1 Bela chewable tablet dose, [facility] 162 mg 08/16/19 System at 2103 Inc Medication administered onsite famotidine 08/16/2019 20 IntraVENous aborted 20 mg, Bon (PF) (PEPCID) 09:02:00 PM mg Intr aVENous, [facility] 20 mg in 0.9% EST EVERY 12 Ch arity sodium HOURS, First Healt h chloride 10 dose on [facility] ystem mL injection 08/16/19 at I nc 2102, Until Discontinued Medication administered onsite methylPREDNISolone [id number] 08/16/2019 125 IntraVENous comple hyun 125 mg, Bon (PF) (Solu-MEDROL) 09:02:00 PM mg IntraVENous, [facility] injection 125 mg EST NOW, 1 d ose, Bela 08/16/19 Health at 2102 System Inc Medication administered onsite 0.9% 9433-9850-46 08/16/2019 1000 IntraVENous completed 1,000 mL, at [...] mg tablet for 3 System days. Inc Melia lithium 08/16/2019 2 Oral active Take 2 [...] Health tablet 162 mg Sun System 08/10/19 [facility] at 2352 Medication administered onsite [...] back pain due to trauma VRAYLAR 6 60533-670-78 07/07/2019 6 mg Oral aborted Bipolar Take [...] FOR 10 DAYS Herpes zoster cephalicus cariprazine [id number] 6 mg Oral aborted Take 6 m g [facility] (Vraylar) 6 mg by mouth C harity capsule daily. [facility] ziprasidone 80 MG ziprasidone 80 mg Oral aborted Take 80 mg [facility] Oral Capsule (GEODON) 80 mg by mouth Bela ziprasidone capsule two (2) He alth (GEODON) 80 mg times Syst em Inc capsule daily (with meals). fluoxetine HCl 60 mg Oral aborted Take 6 0 mg [facility] (PROZAC PO) by mouth Moira ity daily. [facility] Clonazepam 2 MG clonazePAM 1 mg Oral [...] democrat's [place] Inform ation relationship to boland [facility] [id number] [facility] [id number] [facility] HEALTH PLAN [id number] [facility] HMO [id number] [employer] HEALTH PLAN Commerical [id number] [facility] [id number] PLAN [facility] [id number] HEALTH PLAN [facility] [id number] PLAN [facility] [id number] 900 HEALTH PLAN POLO [id number] POLO [id number] [employer] PPO [id number] [facility] PPO [id number] [place] 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 [id number] COMPENSATION [facility] HEALTH PLAN O [id number] 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 [id number] COMPENSATION [facility] [id number] GENERIC [phone] [phone] COMMERCIAL [facility] [id number] PLAN [facility] GENERIC Commerical [id number] [facility] PPO [id number] PLAN [facility] [id number] PLAN 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 [id number] COMPENSATION [facility] HEALTH [place] [id number] [facility] HEALTH PLAN PPO [id number] [facility] Problems, Conditions, and Diagnoses Code Display Name Description Problem Type Effective Data Dates Source(s) T88.7XXA Qgu-mcer-ngcmtyd Qvx-bxqi-iwowjdx [id number] 12/05/2019 Francisco Javier n [facility] adverse reaction to adverse reaction to 12:00:0 0 AM Bela medication medication [facility] [employer] T50.905A Adverse drug Adverse drug [id number] 12/05/2019 [place] s reaction, initial reaction, initial 12:00:00 AM [facility] encounter encounter [facility] [employer] G93.40 Encephalopathy acute Encephalopathy acute [id number] 12/04 [facility] 12:00:00 AM Bela [facility] F31.4 Bipolar disorder with Bipolar disorder [id number] 10/29/19 20 [facility] severe depression with severe 12:00:00 AM [facility] depression [facility] [facility] [employer] E55.9 Vitamin D deficiency Vitamin D deficiency 14034789 09/03 [facility] 12:00:00 AM Bela [facility] F41.8 Mixed anxiety and Mixed anxiety and [id number] 09/04/2019 [facility] depressive disorder depressive disorder 12:00:0 0 AM [facility] E66.01 Morbid obesity Morbid obesity [id number] 07/21/2019 Bon [facility] 12:00:00 AM [facility] 1d4 Pty [facility] Z98.84 Status post gastric Status post gastric [id number] 020 [facility] bypass for obesity bypass for obesity 12:00:00 AM [facility] F32.9 Depressive disorder Depressive disorder [id number] 020 [facility] 12:00:00 AM [facility] 1d4 Pty [facility] F31.9 Bipolar disorder Bipolar disorder [id number] 07/21/2019 Francisco Javier n [facility] 12:00:00 AM [facility] F41.9 Anxiety Anxiety 66132634 07/21/2019 [facility] 12:00:00 AM [facility] 1d4 Pty [facility] G25.2 Other specified forms Other specified Diagnosis 0 [facility] of tremor forms of tremor 03:17:29 PM [facility] F31.4 Bipolar disorder, Bipolar disorder, Diagnosis 12/25/2019 [facility] - Good current episode current episode 04:40:00 PM [facility] depressed, severe, depressed, severe, EDT Hospital without psychotic without psychotic features features F41.9 Anxiety disorder, Anxiety disorder, Diagnosis 12/25/2019 [facility] unspecified unspecified 04:04:24 PM [facility] R25.1 Tremor, unspecified Tremor, unspecified Diagnosis [facility] 04:04:24 PM [facility] Z98.84 Bariatric surgery Bariatric surgery Diagnosis 12/25/2019 [facility] status status 04:04:24 PM [facility] T88.7XXA Unspecified adverse Unspecified adverse Diagnosis [facility] - Good effect of drug or effect of drug or 11:10:37 AM [facility] medicament, initial medicament, initial EDT Hospital encounter encounter G93.40 Encephalopathy, Encephalopathy, Diagnosis 12/05/2019 [facility] - Good unspecified unspecified 11:10:37 AM [facility] Hospital R41.82 Altered mental Altered mental Diagnosis 12/05/2019 [facility] - Good status, unspecified status, unspecified 11:10:3 7 AM [facility] F51.04 Psychophysiologic Psychophysiologic Diagnosis 11/14/2019 [facility] insomnia insomnia 01:22:52 PM [facility] F32.2 Major depressive Major depressive Diagnosis 09/15/2019 [facility] - Good disorder, single disorder, single 08:22:58 AM S amaritan episode, severe episode, severe EDT Hosp ital without psychotic without psychotic features features F41.8 Other specified Other specified Diagnosis 09/04/2019 [facility] anxiety disorders anxiety disorders 03:49:01 PM [facility] F32.2 Major depressive Major depressive Diagnosis 09/04/2019 Francisco Javier n [facility] disorder, single disorder, single 03:49:01 PM C harity episode, severe episode, severe EDT Heal th without psychotic without psychotic System Inc features features Z23 Encounter for Encounter for Diagnosis 09/04/2019 [facility] immunization immunization 03:49:01 PM [facility] T78.40XA Allergy, unspecified, Allergy, Diagnosis 08/16/2019 [facility] initial encounter unspecified, initial 08:39:16 PM [facility] R06.00 Dyspnea, unspecified Dyspnea, unspecified Diagnosis 08/10 [facility] 11:27:27 PM [facility] F31.75 Bipolar disorder, in Bipolar disorder, in Diagnosis 07/21 [facility] partial remission, partial remission, 04:40:28 PM [facility] most recent episode most recent episode [facility] Surgeries/Procedures Procedure Description Date Indications Data Source(s) HC HC Routine 12/25/2019 Bipolar 12/25/2019 Bipolar Francisco Javier n LITHIUM LITHIUM 4:41 PM EDT disorder 04:41:00 PM disorde r [facility] with severe EDT with severe [facility] depression depression He alth (HCC) ([facility] Inc Bipolar disorder with severe depression ([facility]) GLUCOSE, POC GLUCOSE, POC Routine 12/08/2019 12/08/2019 Bon 11:35 AM 11:35:00 AM [facility] METABOLIC METABOLIC Routine 12/07/2019 12/07/2019 Bon PANEL, BASIC PANEL, BASIC 4:40 AM EDT 04:40:00 A M [facility] EEG 12-26 HR EEG 12-26 HR Routine 12/06/2019 12/06/2019 Bon W/VIDEO W/VIDEO 10:25 AM 10:25:08 AM [facility] LITHIUM HC LITHIUM Routine 12/06/2019 12/06/2019 Bon 4:25 AM EDT 04:25:00 AM [facility] LACTIC ACID HC LACTIC ACID STAT 12/05/2019 020 Bon 7:20 PM EDT 07:20:00 PM [facility] HC AMMONIA HC AMMONIA STAT 12/05/2019 12/05/2019 Bon 7:20 PM EDT 07:20:00 PM [facility] BRAIN WO MRI BRAIN WO STAT 12/05/2019 12/05/2019 Bon CONT CONT 4:50 PM EDT 04:50:12 PM [facility] EEG 12-26 HR EEG 12-26 HR STAT 12/05/2019 12/05/2019 Bon W/VIDEO W/VIDEO 3:19 PM EDT 03:19:24 PM [facility] CULTURE, URINE CULTURE, URINE Routine 12/05/2019 020 Bon 2:45 PM EDT 02:45:00 PM [facility] URINALYSIS W/ URINALYSIS W/ STAT 12/05/2019 0 Bon RFLX RFLX 2:45 PM EDT 02:45:00 PM [facility] MICROSCOPIC [facility]COPIC [facility] BILIRUBIN, BILIRUBIN, Routine 12/05/2019 12/05/2019 Bon CONFIRM CONFIRM 2:45 PM EDT 02:45:00 PM [facility] LACTIC ACID HC LACTIC ACID STAT 12/05/2019 020 Bon 12:40 PM 12:40:00 PM [facility] CULTURE HC CULTURE STAT 12/05/2019 12/05/2019 Bon BLOOD BLOOD 12:38 PM 12:38:00 PM Sec ours EDT EDT [facility] PROTHROMBIN PROTHROMBIN STAT 12/05/2019 12/05/2019 Bon TIME + INR TIME + INR 12:38 PM 12:38:00 PM [facility] EDT [facility] CBC WITH CBC WITH STAT 12/05/2019 12/05/2019 Bon AUTOMATED DIFF AUTOMATED DIFF 12:38 PM 12:38:00 PM [facility] EDT EDT [facility] HC TROPONIN I HC TROPONIN I STAT 12/05/2019 0 Bon QUANT QUANT 12:38 PM 12:38:00 PM Sec ours EDT EDT [facility] METABOLIC METABOLIC STAT 12/05/2019 12/05/2019 Bon PANEL, PANEL, 12:38 PM 12:38:00 PM Sec ours COMPREHENSIVE COMPREHENSIVE EDT EDT [facility] MAGNESIUM MAGNESIUM STAT 12/05/2019 12/05/2019 Bon 12:38 PM 12:38:00 PM Sec ours EDT EDT [facility] HC LITHIUM HC LITHIUM STAT 12/05/2019 12/05/2019 Bon 12:38 PM 12:38:00 PM Sec ours EDT EDT [facility] CT HEAD WO CT HEAD WO STAT 12/05/2019 12/05/2019 Bon CONT CONT 12:30 PM 12:30:54 PM Sec ours EDT EDT [facility] HC CULTURE HC CULTURE STAT 12/05/2019 12/05/2019 Bon BLOOD BLOOD 12:30 PM 12:30:00 PM Sec ours EDT EDT [facility] XR PELV AP XR PELV AP STAT 12/05/2019 12/05/2019 Bon ONLY ONLY 12:14 PM 12:14:58 PM Sec ours EDT EDT [facility] XR CHEST PORT XR CHEST PORT STAT 12/05/2019 0 Bon 12:14 PM 12:14:51 PM Sec ours EDT EDT [facility] RT--OXYGEN RT--OXYGEN STAT 12/05/2019 12/05/2019 Bon CANNULA CANNULA 11:20 AM 11:20:37 AM Sec ours EDT EDT [facility] EEG DIGITAL EEG DIGITAL Routine 12/05/2019 12/05/2019 Bon ANALYSIS ANALYSIS 11:10 AM 11:10:37 AM S [facility] EDT EDT [facility] CBC WITH CBC WITH STAT 10/30/2019 10/30/2019 Bon AUTOMATED DIFF AUTOMATED DIFF 6:40 AM EDT 06:40: 00 AM [facility] EDT [facility] METABOLIC METABOLIC STAT 10/30/2019 10/30/2019 Bon PANEL, BASIC PANEL, BASIC 6:40 AM EDT 06:40:00 A M [facility] EDT [facility] URINALYSIS W/ URINALYSIS W/ STAT 10/29/2019 0 Bon RFLX RFLX 6:34 PM EDT 06:34:00 PM [facility] MICROSCOPIC MICROSCOPIC EDT [facility] XR CHEST PORT XR CHEST PORT STAT 10/29/2019 0 Bon 12:09 PM 12:09:04 PM Sec ours EDT EDT [facility] CT HEAD WO CT HEAD WO STAT 10/29/2019 10/29/2019 Bon CONT CONT 11:47 AM 11:47:42 AM Sec ours EDT EDT [facility] HC GLUCOSE HC GLUCOSE Routine 10/29/2019 10/29/2019 Bon POCT POCT 11:26 AM 11:26:00 AM Sec ours EDT EDT [facility] PROTHROMBIN PROTHROMBIN STAT 10/29/2019 10/29/2019 [facility] TIME + INR TIME + INR 10:45 AM 10:45:00 [facility] EDT EDT [facility] CBC WITH CBC WITH STAT 10/29/2019 10/29/2019 [facility] AUTOMATED DIFF AUTOMATED DIFF 10:45 AM 10:45:00 AM [facility] EDT EDT [facility] HC PARTIAL HC PARTIAL STAT 10/29/2019 10/29/2019 [facility] THROMBOPLASTIN THROMBOPLASTIN 10:45 AM 10:45:00 AM [facility] / PTT / PTT EDT EDT [facility] METABOLIC METABOLIC STAT 10/29/2019 10/29/2019 [facility] PANEL, PANEL, 10:45 AM 10:45:00 AM [facility] COMPREHENSIVE COMPREHENSIVE EDT EDT [facility] HC LITHIUM HC LITHIUM STAT 10/29/2019 10/29/2019 [facility] 10:45 AM 10:45:00 AM [facility] EDT EDT [facility] XR SPINE LUMB XR SPINE LUMB Routine [...] n [facility] 9:00 PM EST 02:00:00 AM [facility] nc CBC WITH AUTOMATED CBC WITH STAT 08/16/2019 0 [facility] DIFF AUTOMATED DIFF 9:00 PM EST 02:00:00 AM [facility] I nc TROPONIN I TROPONIN I STAT 08/16/2019 08/17/2019 [facility] 9:00 PM EST 02:00:00 AM [facility] nc METABOLIC PANEL, METABOLIC PANEL, STAT 08/16/2019 [facility] COMPREHENSIVE COMPREHENSIVE 9:00 PM EST 02:00:00 AM [facility] nc MAGNESIUM MAGNESIUM STAT 08/16/2019 08/17/2019 [facility] 9:00 PM EST 02:00:00 AM [facility] nc LITHIUM LITHIUM STAT 08/16/2019 08/17/2019 Francisco Javier n [facility] 9:00 PM EST 02:00:00 AM [facility] nc INFLUENZA A <td><content ID="[id number]">INFLUENZA A & B 07/26 [facility] & B AG AG (RAPID 05:18:00 AM [facility] (RAPID TEST) TEST)</content></td><td>STAT</td><td>08/11/2019 EST [facility] 12:18 AM EST</td><td></td><td><paragraph Health styleCode="header">Results for this procedure are System in the <content Inc styleCode="[id number]">results section</content>.</paragraph></td> PROTHROMBIN TIME + PROTHROMBIN TIME STAT 08/11/2019 0 08/11/2019 [facility] INR + INR 12:01 AM EST 05:01:00 AM [facility] n[facility] D DIMER D DIMER STAT 08/11/2019 08/11/2019 Francisco Javier [facility] 12:01 AM EST 05:01:00 AM [facility] n[facility] CBC WITH AUTOMATED CBC WITH STAT 08/11/2019 0 [facility] DIFF AUTOMATED DIFF 12:01 AM EST 05:01:00 AM [facility] PTT PTT STAT 08/11/2019 08/11/2019 Francisco Javier n [facility] 12:01 AM EST 05:01:00 AM [facility] TROPONIN I TROPONIN I STAT 08/11/2019 08/11/2019 [facility] 12:01 AM EST 05:01:00 AM [facility] METABOLIC PANEL, METABOLIC PANEL, STAT 08/11/2019 [facility] COMPREHENSIVE COMPREHENSIVE 12:01 AM EST 05:01:0 0 AM [facility] n[facility] MAGNESIUM MAGNESIUM STAT 08/11/2019 08/11/2019 [facility] 12:01 AM EST 05:01:00 AM [facility] LITHIUM LITHIUM STAT 08/11/2019 08/11/2019 [facility] J[facility] 12:01 AM EST 05:01:00 AM [facility] LACTIC ACID LACTIC ACID STAT 08/11/2019 08/11/2019 [facility] 12:01 AM EST 05:01:00 AM [facility] BNP BNP STAT 08/11/2019 08/11/2019 Francisco Javier n [facility] 12:01 AM EST 05:01:00 AM [facility] RT--OXYGEN CANNULA RT--OXYGEN STAT 08/10/2019 020 [facility] CANNULA 11:51 PM EST 04:51:27 AM [facility] n[facility] EKG, 12 LEAD, EKG, 12 LEAD, STAT 08/10/2019 0 [facility] INITIAL INITIAL 10:14 PM EST 03:14:27 AM [facility] Results ID Date Data Source [id number] 03/29/2020 08:58:00 AM EDT [facility] Name Value Range Interpretation Description Data Sup porting Code Source(s) Document(s ) SARS [facility] coronavirus 2 RNA This lab was ordered by [facility] and reported by [facility]. ID Date Data Source [id number] 03/25/2020 09:42:00 AM EDT [facility] Name Value Range Interpretation Description Data Sup porting Code Source(s) Document(s ) SARS [facility] coronavirus 2 RNA This lab was ordered by [facility] and reported by [facility]. ID Date Data Source [id number] 03/22/2020 09:00:00 AM EDT [facility] Name Value Range Interpretation Description Data Sup porting Code Source(s) Document(s ) SARS [facility] coronavirus 2 RNA This lab was ordered by [facility] and reported by [facility]. ID Date Data Source [id number] 03/19/2020 10:37:00 AM EDT [facility] Name Value Range Interpretation Description Data Sup porting Code Source(s) Document(s ) SARS [facility] coronavirus 2 RNA This lab was ordered by [facility] and reported by [facility]. ID Date Data Source [id number] 03/15/2020 10:30:00 AM EDT [facility] Name Value Range Interpretation Description Data Sup porting Code Source(s) Document(s ) SARS [facility] coronavirus 2 RNA This lab was ordered by [facility] and reported by [facility]. ID Date Data Source [id number] 03/12/2020 12:00:00 PM EDT [facility] Name Value Range Interpretation Description Data Sup porting Code Source(s) Document(s ) SARS [facility] coronavirus 2 RNA This lab was ordered by [facility] and reported by [facility]. ID Date Data Source [id number] 03/08/2020 10:18:00 AM EDT [facility] Name Value Range Interpretation Description Data Sup porting Code Source(s) Document(s ) SARS [facility] coronavirus 2 RNA This lab was ordered by [facility] and reported by [facility]. ID Date Data Source [id number] 03/04/2020 09:50:00 AM EDT [facility] Name Value Range Interpretation Description Data Sup porting Code Source(s) Document(s ) SARS [facility] coronavirus 2 RNA This lab was ordered by [facility] and reported by [facility]. ID Date Data Source [id number] 03/02/2020 12:15:00 PM EDT [facility] Name Value Range Interpretation Description Data Sup porting Code Source(s) Document(s ) SARS [facility] coronavirus 2 RNA This lab was ordered by [facility] and reported by [facility]. ID Date Data Source [id number] 02/27/2020 09:15:00 AM EDT [facility] Name Value Range Interpretation Description Data Sup porting Code Source(s) Document(s ) SARS [facility] coronavirus 2 RNA This lab was ordered by [facility] and reported by [facility]. ID Date Data Source [id number] 02/23/2020 11:40:00 AM EDT [facility] Name Value Range Interpretation Description Data Sup porting Code Source(s) Document(s ) SARS [facility] coronavirus 2 RNA This lab was ordered by [facility] and reported by [facility]. ID Date Data Source [id number] 02/19/2020 09:56:00 AM EDT [facility] Name Value Range Interpretation Description Data Sup porting Code Source(s) Document(s ) SARS [facility] coronavirus 2 RNA This lab was ordered by [facility] and reported by [facility]. ID Date Data Source [id number] 02/16/2020 08:40:00 AM EDT [facility] Name Value Range Interpretation Description Data Sup porting Code Source(s) Document(s ) SARS [facility] coronavirus 2 RNA This lab was ordered by [facility] and reported by [facility]. ID Date Data Source [id number] 02/13/2020 10:05:00 AM EDT [facility] Name Value Range Interpretation Description Data Sup porting Code Source(s) Document(s ) SARS [facility] coronavirus 2 RNA This lab was ordered by [facility] and reported by [facility]. ID Date Data Source [id number] 02/09/2020 10:25:00 AM EDT [facility] Name Value Range Interpretation Description Data Sup porting Code Source(s) Document(s ) SARS [facility] coronavirus 2 RNA This lab was ordered by [facility] and reported by [facility]. ID Date Data Source [id number] 01/25/2020 09:20:00 AM EDT [facility] Name Value Range Interpretation Description Data Sup porting Code Source(s) Document(s ) 2019 Novel [facility] Coronavirus RNA Interpretation Unspecified Specimen Qualitative CATA Probe Detection This lab was ordered by [facility] and reported by [facility]. ID Date Data Source [id number] 12/25/2019 05:54:30 PM EDT [facility] Name Value Range Interpretation Description Data Sup porting Code Source(s) Document(s ) Melia 0.38 0.6-1.2 Below low normal [facility] [Moles/volu MMOL/L [facility]] in Hospital Serum or Plasma ID Date Data Source [id number] 12/23/2019 01:50:56 PM EDT [facility] Discharge SummaryPatient: Maxwell Mendieta Xiao mackey Sex: male DOA: 12/05/2019Date of : 1970 A ge: 49 y.o. LOS: LOS: 3 daysAdmit Date: 12/05/2019Discharge Date: 12/08/2019 Admission Diagnoses: Encephalopathy acute [G93.40];Hje-uqdt-jqrhobd adversereactio n to medication [T88.7XXA];Hmn-upfw-vgpnonq adverse reaction tomedication [T88.7XXA] Discharge Diagnoses: #1 [...] ICD-10-CM: T50.905AICD -9-CM: E947.9 12/05/2019 - Present Pbi-zjdj-uetqgma adverse reaction to med ication ICD-10-CM: T88.1EMSEKU-1-MW: 995.20 12/05/2019 - Present Bipolar disorder wit [...] E66.01ICD-9-CM: 278.01 07/19/2018 - Present Spells ICD-10-CM: MPH1198SUR-4-XF: IMO00 01 04/08/2016 - Present Seizure disorder [...] Supporting Document(s ) ID Date Data Source [id number] 12/09/2019 02:14:04 PM EDT [facility] referral made. Walker order faxed t o [facility], [facility] and [facility] do NOT acc ept pts insurance.Faxed to Moriah at [facility] at FAX [phone]. She reports they ne ed to get authfor walker. Have instucted pt to buy own walker IF not authorized.He i s agreeable to buying walker if needs to.Care Management InterventionsPCP Verified by CM: YesTransition of Care Consult (CM Consult): [facility] e: YesCurrent Support Network: Own Home, Lives with SpouseThe Patient and/or Prachi ent Second Baker was Provided with a Choice of Providerand Agrees with the Discharge Plan?: YesFreedom of Choice List was Provided with Basic Dialogue that Suppor ts thePatient's Individualized Plan of Care/Goals, Treatment Preferences and Sh aresthe Quality Data Associated with the Providers?: YesVeteran Resource Informat ion Provided?: RefusedDischarge LocationDischarge Placement: Home with critical access hospital([facility]CEPTED BY [facility])Pt is discharged , [...] Name Value Range Interpretation Code Description Data [facility] rce(s) Supporting Document(s ) ID Date Data Source [id number] 12/08/2019 03:06:17 PM EDT [facility] I have reviewed discharge instructions w ith the patient. The patient verbalizedunderstanding.Discussed with t he patient and all questioned fully answered. He will call me ifany problems arise.If you experience chest pain call [address] yourself.Patient armband removed a nd shredded. IV removed and discharged home stable. Name Value Range Interpretation Code Description Data [facility] rce(s) Supporting Document(s ) ID Date Data Source [id number] 12/08/2019 03:02:56 PM EDT [facility] Per your note, pt with acute encephalopa thy and toxic Serum Melia level.Please specify the type of encephalopathy in yo ur progress notes: Toxic encephalopathy due to lithium Metabolic encephalopathy due to Other cause (please specify) Clinically unable to determine UnknownPLEASE DOCUM ENT ANY ADDITIONAL DIAGNOSES AND/OR SPECIFICITY IN THE PROGRESSNOTES AND/OR DISCHARGE SUMMARY. Name Value Range Interpretation Code Description Data [facility] rce(s) Supporting Document(s ) ID Date Data Source [id number] 12/08/2019 02:40:45 PM EDT [facility] Problem: SuicideGoal: *STG: Remains safe in hospital12/08/2019 1440 by Basilio Moshercome: Resolved/Met12/08/2019 1439 by Ru Mosher: Progressing Towards GoalGoal: *STG: Seeks staff when feeling s of self harm or harm towards others arise12/08/2019 1440 by Basilio Moshercome : Resolved/Met12/08/2019 1439 by Ru Mosher: Progressing Towards GoalGoa l: *STG: Attends activities and groups12/08/2019 1440 by Anup Mosher e: Resolved/Met12/08/2019 1439 by Ru Mosher: Progressing Towards GoalGoa l: *STG: Verbalizes alternative ways of dealing with maladaptivefeelings/behavio rs12/08/2019 1440 by Basilio Moshercome: Resolved/Met12/08/2019 1439 by Glenys Mosher Outcome: Progressing Towards GoalGoal: *STG/LTG: Complies with medication thera py12/08/2019 1440 by Ru Mosher: Resolved/Met12/08/2019 1439 by Glenys Mosher Outcome: Progressing Towards GoalGoal: *STG/LTG: No longer expresses self destr uctive or suicidal thoughts12/08/2019 1440 by Ru Mosher: Resolved/Met12/08/2019 1439 by Ru Mosher: Progressing Towards GoalGoal: *LTG: Identifies Vascular Imaging12/08/2019 1440 by Ru Mosher: Resolved/Met12/08/2019 1439 by [...] Fall R [facility]k and [facility]12/08/2019 1440 by Divya Mosherome: Resolved/MetNote: Fall Risk [...] Document Harsh Scale and appropriate interventions in [facility].12/08/2019 1440 by Ru Mosher: Resolved/MetNote: [...] Education ActivityGoal: Patient/Family Education12/08/2019 1440 b y Mosher, KatyOutcome: Resolved/Met12/08/2019 1439 by Basilio Moshercome: Progressing T owards GoalProblem: Fluid Volume - Risk of, ImbalancedGoal: *Balanced intake and out put12/08/2019 1440 by Basilio Moshercome: Resolved/Met12/08/2019 143 by Glenys Mosher Outcome: Progressing Towards GoalProblem: Patient Education: Go to Patient Educati on ActivityGoal: Patient/Family Education12/08/2019 1440 by Basilio Mosher come: Resolved/Met12/08/2019 143 by Basilio Moshercome: Progressing Towards GoalPro blem: Patient Education: Go to Patient Education ActivityGoal: Patient/Family E ducation12/08/2019 1440 by Basilio Moshercome: Resolved/Met12/08/20191438 by Glenys Mosher Outcome: Progressing Towards Goal Name Value Range Interpretation Code Description Data [facility] rce(s) Supporting Document(s ) ID Date Data Source [id number] 12/08/2019 02:40:17 PM EDT [facility] Problem: SuicideGoal: *STG: Remains safe in [...] Document Harsh Scale and appropriate interventions in [facility].Outcome: P rogressing Towards GoalNote: Pressure Injury [...] Supporting Document(s ) ID Date Data Source [id number] 12/08/2019 01:18:54 PM EDT [facility] General Daily Progress NoteAdmit Date: Hospital day: .tdSubjective:Psycgm Neuro,and PT assessments reviewed. Patie nt qualifies for discharge. Wifecalled, will bring in clothes. New medical regimen di scussed with the . Willneed Melia level later this week.Current Facility-Adminis tered MedicationsMedication [...] past 8 hrs: BP Temp Pulse Resp CdQ98312/07 0816 - - - - 96 %12/08/19 [...] initial encounter (12/05/2019)Active Problems: Encephalopathy acute (12/05/2019) Gub-mdts-oyiessl adve rse reaction to medication (12/05/2019)Plan: day of discharge. Name Value Range Interpretation Code Description Data [facility] r[facility](s) Supporting Document(s ) ID Date Data Source [id number] 12/08/2019 12:09:30 PM EDT [facility] Problem: Mobility Impaired (Adult and Pe [...] y.o. male)Date: 12/08/2019Primary Diagnosis: E ncephalopathy acute [G93.40]Qno-xjyc-ohcoqux adverse reaction to medication [T88.7XXA ]Arc-jtii-feotgcf adverse reaction to medication [T88.7XXA]Precautions: Fall ASSESSMENT [...] or mortality cardiac cath at [facility] approx 6-8 months ago Other [...] NoneCritical Beh avior:Neurologic State: AlertOrientation Level: Oriented E6Hgqwyobcb: Appropriate for age attention/concentration;Follows commandsSafety/Judgement: Decreased awar [...] Supporting Document(s ) ID Date Data Source [id number] 12/08/2019 11:48:26 AM EDT [facility] Name Value Range Interpretation Description Data Sup porting Code Source(s) Document(s ) Glucose 132 MG/DL 65-110 Above high normal [facility] [Mass/volume] [facility] in Blood by Hospital Automated test strip ID Date Data Source [id number] 12/08/2019 10:35:45 AM EDT [facility] S/O Patient has shown improvement. He re ports that medications are helping him.He denies any side effectsHe denies any cecilia cidal thoughtsHe reports that he [facility] a [facility] 300 mg bid Melia level in two days Will increase Zyprexa 5 mg Will follow up as requested Name Value Range Interpretation Code Description Data [facility] rce(s) Supporting Document(s ) ID Date Data Source [id number] 12/08/2019 07:28:52 AM EDT [facility] Bedside and Verbal shift change report g yesseniaen to SUSI Hurley (oncoming nurse) Annalise DE LEON RN (offgoing nurse). Repor t included the followinginformation SBAR, Kardex, MAR and Recent Results. Name Value Range Interpretation Code Description Data [facility] rce(s) Supporting Document(s ) ID Date Data Source [id number] 12/07/2019 08:26:02 PM EDT [facility] Problem: Falls - Risk ofGoal: *Absence [...] Harsh Scale and appropriate interventio ns [facility].Outcome: Progressing Towards GoalNote: Pressure Injury Interv [...] Name Value Range Interpretation Code Description Data [facility] rce(s) Supporting Document(s ) ID Date Data Source [id number] 12/07/2019 07:05:28 PM EDT [facility] Verbal shift change report given to Chandrakant Cox RN (oncoming nurse) by Steven Villalobos RN (offgoing nurse). Report inc luded the following information SBAR, Kardex,Intake/Output, MAR, Recent Result s and Cardiac Rhythm on telemetry. Name Value Range Interpretation Code Description Data [facility] rce(s) Supporting Document(s ) ID Date Data Source [id number] 12/07/2019 01:30:56 PM EDT [facility] Trent Jacob MD[address] [place] [address] [id number] Progress NotePatient: Maxwell Bray Sex: male DOA: [...] (LOVENOX) injection 40 mg 40 mg SubCUTAneous F17FXepupolex:Visit VitalsBP 153/85 (BP 1 Location: Left arm, BP Prachi ent Position: At rest)Pulse 96Temp 98.7 F (37.1 C)Resp 20Ht 5' 5.75" (1.67 m)Wt 3 01 lb 1.6 oz (136.6 kg)SpO2 96%BMI 48.97 kg/m Body mass index is 48.97 kg/m .Patient V itals for the past 24 hrs: Temp Pulse Resp BP GwZ94412/07/19 1249 - 96 - 153/85 - 0 [...] the time notated as "note time" in [facility]. (It is not time stamped separately [...] of shoulder M79.2 Seizure disorder ([facility]) G40.909 Spells [id number] Severe obesity ([facility]) E66.01 Depression F32.9 Anxiety F41.9 Bipolar disorder ([facility]) F31.9 Depressive disorder F32.9 Status post g astric bypass for obesity Z98.84 Morbid obesity (HCC) E66.01 Mixed anxiety and depressive disorder F41.8 Vitamin D deficiency E55.9 Bipolar disorder with severe depression ([facility]CC) F31.4 Encephalopathy acute G93.40 Adverse drug reaction, ini tial encounter T50.905A Tly-atmd-upwtdbp adverse reaction to medication T88.7XXA 49 year [...] Name Value Range Interpretation Code Description Data [facility] rce(s) Supporting Document(s ) ID Date Data Source [id number] 12/07/2019 01:02:36 PM EDT [facility] Pt seen and discussed with Dr Canas .Pt is tearful flat and denies any suicidal thoughts , has been depressed withlithiu m on hold , No Vraylar and he is unable to get his ECT at [facility] And no w will be with [facility] with Dr Womack his lithium level is un therape utic range I will start on lithium , add 2.5mg of zyprexa and lower his klonopin And increase his elavil to 200 mg HSWill get pt followed up with Psychiatry Name Value Range Interpretation Code Description Data [facility] rce(s) Supporting Document(s ) ID Date Data Source [id number] 12/07/2019 12:52:32 PM EDT [facility] Problem: Fluid Volume - Risk of, Imbalan cedGoal: *Balanced intake and outputOutcome: Progressing Towards GoalProblem: Patient Education: Go to Patient Education ActivityGoal: Patient/Family EducationOu tcome: Progressing Towards Goal Name Value Range Interpretation Code Description Data [facility] rce(s) Supporting Document(s ) ID Date Data Source [id number] 12/07/2019 12:45:20 PM EDT [facility] Problem: Falls - Risk ofGoal: *Absence [...] layers, Apply protective barrier,creams and emollientsProblem: Valerio bradleynt Education: Go to Patient Education ActivityGoal: Patient/Family EducationOu tcome: Progressing Towards GoalProblem: HypertensionGoal: *Blood pressure within specified parametersOutcome: Progressing Towards GoalGoal: *Fluid volume balanceO utcome: Progressing Towards GoalGoal: *Labs within defined limitsOutcome: Progressin g Towards Goal Name Value Range Interpretation Code Description Data [facility](s) Supporting Document(s ) ID Date Data Source [id number] 12/07/2019 12:24:47 PM EDT [facility] General Daily Progress NoteAdmit Date: [...] injection 40 mg 40 mg SubCUTA neous H06XJvahquuso:Patient Vitals for the past 8 hrs: BP Temp Pulse Resp VdN21812/06 0956 147/86 98.7 F (37.1 C) 95 [...] initial encounter (12/05/2019)Active Problems: Encephalopathy acute (12/05/2019) Adc-bfba-ywoqpwk adve rse reaction to medication (12/05/2019)Plan:To increase activity, diet,klonopin. Start Losartan Name Value Range Interpretation Code Description Data [facility] r[facility](s) Supporting Document(s ) ID Date Data Source [id number] 12/07/2019 10:13:28 AM EDT [facility] LTM EEG supervisor taping DC'd per Dr. Jacob. Name Value Range Interpretation Code Description Data [facility] r[facility](s) Supporting Document(s ) ID Date Data Source [id number] 12/07/2019 10:08:27 AM EDT [facility] [place] [address]PBQCDIW: MAXWELL BRAYMRN: [id number]: [id number]#: [id number] DATE: 12/05/2019LONG TERM MONITORING VIDEO PSYCHOLOGICAL AIDE: Riky Rodriguez HISTORY: The patient is a [...] montages. Digital analysis was performed employing an Ord[employer] neuralnetwork program with parameterization and statistical analysi s. Analysis toolsutilized include compressed spectral array (CSA), XL spike detectors , and XLevent detector. Please note that the reading physician had access to review t hedata throughout the recording and a daily report was generated on each day ofthe r ecording. To eliminate confusion from the electronic medical record, thesuki weston rts were consolidated into one full report. Patient managementdecisions were made in real time during the course of the recording as deemedappropriate.BACKGROUND ACTIVITY : The awake record is well organized and symmetric, andconsists primarily of high amplitude beta with admixed alpha frequencies.A 7-7.5 Hz posterior dominan t rhythm is seen, that attenuates with eye opening.There was aijv-lb-ixjeowut gener alized background slowing.There was no clear focal slowing.ACTIVATION TECHNIQUES: Ph otic stimulation and hyperventilation were notperformed.SLEEP: During drowsiness, there is mild attenuation and slowing of thebackground rhythm. There was normal sleep seen including symmetric vertexwaves, sleep spindles, and K-complexes.OTHER AC TIVITY: There were no clear epileptiform discharges and no seizures orclinical ev ents recorded.DIGITAL ANALYSIS: Variable spectral pattern without significant lef o-rf-fdtwhbwrodibmucl. Spikes were artifact in nature.DECEMBER 06 DAILY [...] the awake and asleep states due to kpqa-de-mlnlysox diffuse cerebraldysfunc tion that improves to mild over the course of the recording. TRENT JACOB, MDDD: #12/06/2019 10:21:35/SS /[id number]/[id number] #: [id number] / [id number] Name Value Range Interpretation Code Description Data [facility](s) Supporting Document(s ) ID Date Data Source [id number] 12/07/2019 07:45:20 AM EDT [facility] Bedside and Verbal shift change report cristi Dove RN (3Loria) (oncomingnurse) by Vy Green RN (offgoing nurse). Report included the following information SBAR, Kardex, MARand Recent Results. Name Value Range Interpretation Code Description Data [facility](s) Supporting Document(s ) ID Date Data Source [id number] 12/07/2019 07:22:41 AM EDT [facility] All leads and head wrapping intact. Day 2 LTM complete. Awaiting instructions tocontinue for day 3 or DC. Name Value Range Interpretation Code Description Data [facility](s) Supporting Document(s ) ID Date Data Source [id number] 12/07/2019 05:19:11 AM EDT [facility] Name Value Range Interpretation Description Data Sup porting Code Source(s) Document(s ) Sodium 138 136-145 [facility] [Moles/volume] mmol/L [facility] in Serum or Hospital Plasma Potassium 3.5 3.5-5.1 [facility] [Moles/volume] mmol/L [facility] in Serum or Hospital Plasma Chloride 106 98-107 [facility] [Moles/volume] mmol/L [facility] in Serum or Hospital Plasma Carbon 27 21-32 [facility] dioxide, total mmol/L [facility] [Moles/volume] [facility] in Serum or Plasma Anion gap in 10 10-20 [facility] or mmol/L [facility] Glucose 140 74-106 Above high normal [facility] [Mass/volume] mg/dL [facility] in Serum or Hospital Plasma Urea nitrogen 19 mg/dL 7-18 Above high normal [facility] [Mass/volume] [facility] in Serum or Hospital Plasma Creatinine 0.94 0.70-1.3 [facility] [Mass/volume] mg/dL 0 [facility] in Serum or Hospital Plasma Glomerular >60 [facility] filtration [facility] rate/1.73 sq M Hospital predicted among blacks [Volume Rate/Area] in Serum or Plasma by Creatinine-bas ed formula (MDRD) Glomerular >60 [facility] filtration [facility] rate/1.73 sq M Hospital predicted among non-blacks [Volume Rate/Area] in Serum or Plasma by Creatinine-bas ed formula (MDRD) (NOTE)Estimated GFR is calculated using the Modification of Diet in RenalDisease (MDRD) Study equation, reported for both Americans(GFRAA) and non- Americans (GFRNA), and normalized to 1.7 7e4rlag surface area. The physician must decide which value applies tothe patient . The MDRD study equation should only be used inindividuals age 18 or older. It has no t been validated for thefollowing: women, patients with serious comorbid co nditions,or on certain medications, or persons with extremes of body size,muscl e mass, or nutritional status. Calcium [Mass/volume] in Serum 9.1 mg/dL 8.5-10.1 [facility] or [facility] ID Date Data Source [id number] 12/06/2019 08:12:24 PM EDT [facility] Bedside and Verbal shift change report cristi casashali to Rach RN (oncoming nurse) Estephania Wakefield RN (offgoing nurse). Report included the followinginformation SBAR, Kardex, MAR, Recent Results, and Med Rec Status. Name Value Range Interpretation Code Description Data Melani rce(s) Supporting Document(s ) ID Date Data Source [id number] 12/06/2019 04:57:12 PM EDT [facility] General Daily Progress NoteAdmit Date: Hospital [...] (LOVENOX) injection 40 mg 40 mg SubCUTAneous T81UFfzybbsmw:Patient Vi tals for the past 8 hrs: BP Temp Pulse Resp LiZ36012/06/19 1547 (!) 164/100 99.6 F (3 7.6 [...] Time: 12/06/19 4:25 AMResult Value Ref Range Melia level 1.09 0.6 - 1.2 MMOL/L Xr [...] initial encounter (12/05/2019)Active Problems: Encephalopathy acute (12/05/2019) Cms-diie-gjprusj adve rse reaction to medication (12/05/2019)Plan:To reduce iv fluids, repeat lasix Name Value Range Interpretation Code Description Data Melani rce(s) Supporting Document(s ) ID Date Data Source [id number] 12/06/2019 04:14:48 PM EDT [facility] Psychiatry Consult NoteSubjective:Patien t: Maxwell Bray [...] of morbidity or mortality cardiac cath at [facility] approx 6-8 months ago Other unknown and unspecified cause of morbidity or mortal ity concussions Other unknown and unspecified cause of morbidity or mortal ity "periodic disorientation" Other unknown and unspecified cause of morbidity or mo rtality anxiety Psychiatric disorder anxiety, depressionPsychiatric History: Patient reported he was receiving care in outpatient from [facility] psychiatrist t did not discuss details.Substance Use History:Social HistorySubstance and Sexu al ActivityAlcohol Use No Frequency: Never Drinks per session: 1 or 2 Binge freque ncy: NeverSocial HistorySubstance and Sexual ActivityDrug Use NoObjective:Vitals/Phys ical Assessment:Patient Vitals for the past 8 hrs: BP Temp Pulse Resp FsZ51312/06/19 081 3 (!) 153/94 100.4 F (38 [...] encounter (12/05/2019)A ctive Problems: Encephalopathy acute (12/05/2019) Yrd-qqec-sbavoks adverse re action to medication (12/05/2019)Plan:No current [...] Supporting Document(s ) ID Date Data Source [id number] 12/06/2019 01:18:16 PM EDT [facility] Trent Jacob MD[address], [address] [place] [address] [id number] Progress NotePatient: Maxwell Bray Sex: male DOA: 12/05/2019Date of : 1970 Age: 49 y.o. LOS: LOS: 1 daySubjective:Awake, alert, tremulous, no current complaintsEEG w/ mild to mod gen slowREVIEW OF SYSTEMS: NO CP, SOB, N,V,D, F,CCurrent Facility-Administered MedicationsMedication Dose Route Frequen cy 0.9% sodium chloride infusion 125 mL/hr IntraVENous CONTINUOUS enoxaparin (LOVE NOX) injection 40 mg 40 mg SubCUTAneous P03UUmfqlbmla:Visit VitalsBP (!) 153/94 (BP 1 Location: Left arm, BP Patient Position: At rest)Pulse 100Temp 100.4 F (38 C)Resp 18Ht 5' 5.75" (1.67 m)Wt 300 lb (136.1 kg)SpO2 96%BMI 48.79 kg/m Body mass index is 48.79 kg/m .Patient Vitals for the past 24 hrs: Temp Pulse Resp BP LmT39112/06/19 0813 100.4 F (38 C) 100 18 [...] past 24 hours were reviewed both during myini tial daily workflow process and at the time notated as "note time" in [facility]. (It is not time stamped separately [...] Time: 12/06/19 4:25 AMResult Value Ref Range Melia level 1.09 0.6 - 1.2 MMOL/LCT Results (most recent):Results from [facility] encounter on 12/05/19CT HEAD WO CONT [...] of the brain.MRI Results (most recent):Results from [facility] encounter on 12/05/19MRI BRAIN WO CONT Narrative [...] of shoulder M79.2 Seizure disorder ([facility]) G40.909 Spells EXF1960 Severe ob esity ([facility]) E66.01 Depression F32.9 Anxiety F41.9 Bipolar disorder ([facility]) F31.9 Dep ressive disorder F32.9 Status post gastric bypass for obesity Z98.84 Morbid obesit y ([facility]) E66.01 Mixed anxiety and depressive disorder F41.8 Vitamin D deficiency E55 .9 Bipolar disorder with severe depression ([facility]) F31.4 Encephalopathy acute G93.40 Adverse drug reaction, initial encounter T50.905A Vvu-urng-qocyaau adverse react ion to medication T88.7XXA49 year [...] Supporting Document(s ) ID Date Data Source [id number] 12/06/2019 11:43:34 AM EDT [facility] LTM study day 1 complete. All leads and head wrapping intact. Day 2 LTM studycommenced and LIVE via WIFI on [facility]. 06/28 Name Value Range Interpretation Code Description Data [facility] rce(s) Supporting Document(s ) ID Date Data Source [id number] 12/06/2019 10:48:32 AM EDT [facility] Care Management InterventionsPCP Verifie d by CM: YesCurrent Support Network: Own Home, Lives with SpouseThe Patient and/o r Patient Second Baker was Provided with a Choice of Providerand Agrees with the Betty rose Plan?: YesFreedom of Choice List was Provided with Basic Dialogue that Suppor ts thePatient's Individualized Plan of Care/Goals, Treatment Preferences and Sh aresthe Quality Data Associated with the Providers?: YesVeteran Resource Informat ion Provided?: RefusedDischarge LocationDischarge Placement: HomeCASE YUE LORENZ PSYCHOSOCIAL ASSESSMENTMaxwell F Redwood Admission Marlon e: 12/05/2019MRN: [id number] of : 1970Current date: 12/06/2019 DISCHARGE PLAN: Patient is a 49 year old male admitted to [facility]. CM attempted toreach hi m via room phone and was unsuccessful. CM spoke with the spouses ,Blanca at [phone]. Prior to hospitalization patient was independent of [...] services. Open for SNF. Family would like [facility]. CM CCLINKD. CM willfollow.Patient Information:Patients Preferred Name: [...] NoPCP: Ritika Canas MDAdmitting Provider: Ritika lobo MDHE[facility] PEER SUPPORT SPECIALIST: N/APayor: P ayor: [facility] HEALTH PLAN / Plan: [facility] HEALTH PLAN /Product Type: O /Secondary Payor : @[facility]ENTERINSGROUPNAME@Encephalopathy acute [G93.40]Yre-szdn-wztqhin adverse reactio n to medication [T88.7XXA]Ist-envh-beifgdu adverse reaction to medication [T88.7XXA ]Patient Active Problem ListDiagnosis Code H/O gastric bypass Z98.84 Insomnia G47. 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 Seizure disorder ([facility]) G40.909 Spells I [id number] Severe obesity ([facility]) E66.01 Depression F32.9 Anxiety F41.9 Bipolar disorder (HCC) F31.9 Depressive disorder F32.9 Status post gastric bypass for ob esity Z98.84 Morbid obesity ([facility]CC) E66.01 Mixed anxiety and depressive disorder F4 1.8 Vitamin D deficiency E55.9 Bipolar disorder with severe depression (HCC) F3 1.4 Encephalopathy acute G93.40 Adverse drug reaction, initial encounter T50.905 A Bwq-rfed-izjcypo adverse reaction to medication T88.7XXASocial HistorySubstan ce and Sexual ActivityAlcohol Use No Frequency: Never Drinks per session: 1 or 2 Binge frequency: NeverNumber of stairs into patient home:DME:Cohabitants:Abuse Screen:Physical Abuse/Neglect: DeniesSexual Abuse: DeniesVerbal Abuse: DeniesOther A buse/Issues: DeniesINSURANCE INFORMATION: (Verification)Primary Notes:Secondary No kenton:Workmen's Comp Notes:No-Fault Notes:SSD Notes:Un-Insured Notes:Long-Term Care In [facility] If Applicable Notes:Current Functioning:Language barriers: Notes:Und erstanding nature/impact of illness: Notes:Ability to participate in plan: No kenton:Realistic Problem solving and planning: Notes:Adequate coping skills: Notes:Reli gious/Cultural barriers: Notes:If unable to assess or not applicable: Notes:Suicide Assessment:Readmit Risk:Support Systems: Child(mary), Family member(s), Friends \\ neighbors,Spouse/Significant Other/PartnerAdvanced Care Planning:Conf [facility] Advance Directive: NoneDiscussed with the patient and all questions fully answered . He will call me ifany problems arise. Name Value Range Interpretation Code Description Data Melani rce(s) Supporting Document(s ) ID Date Data Source [id number] 12/06/2019 07:40:06 AM EDT [facility] 1938: Patient found in bed resting [...] Supporting Document(s ) ID Date Data Source [id number] 12/06/2019 05:07:27 AM EDT [facility] Name Value Range Interpretation Description Data Sup porting Code Source(s) Document(s ) Melia 1.09 0.6-1.2 [facility] [Moles/volu MMOL/L [facility] in Hospital Serum or Plasma ID Date Data Source [id number] 12/05/2019 07:59:09 PM EDT [facility] Name Value Range Interpretation Description Data Sup porting Code Source(s) Document(s ) Ammonia 16 UMOL/L 11-32 [facility] [Moles/volum [facility] e] in Plasma Hospital ID Date Data Source [id number] 12/05/2019 07:56:38 PM EDT [facility] Name Value Range Interpretation Description Data Sup porting Code Source(s) Document(s ) Lactate 0.9 0.4-2.0 [facility] [Moles/volu MMOL/L [facility] in Hospital Serum or Plasma ID Date Data Source [id number] 12/05/2019 06:42:57 PM EDT [facility] LTM EEG supervisor taping complete. Day 1 LTM comm enced and LIVE via WIFI on [facility] 06/28 Name Value Range Interpretation Code Description Data Melani rce(s) Supporting Document(s ) ID Date Data Source [id number] 12/05/2019 06:07:34 PM EDT [facility] [id number] [facility]ITALModafirma SYSTEM INC [facility] 4T OR THOPEDICS [address] [facility] [address] [phone]/06/13 Maxwell Bray (Male) [id number] I 3 ED Dispo:ADMIT Chief Complaint: Fall, Fatigue Diagnosis: Altered mental status, unspecified altered mental status type [] Adverse drug reaction, initial encounter [] Encephalopathy acute [] Vtu-csxg-dtuuriy adverse effect of medication, subsequent encounter [] Bipolar disorder with severe depression (HCC) [] H/O gastric bypass [] Curre nt Providers: Attending: Patsy Manzo; Kristy Otero; Cristi Canas Consulting Provider: Jose Centeno; Cristi Canas; Javier Khan; Cristi Frazier Primary Nurse: BAILEY GambleN: [id number] [id number] [employer] [phone] - [facility] MrnMRN: [id number] [employer] [phone] - [facility] Age SexDOB 1970 AGE 49 SEX Male Primary Care Provider: Ritika Canas MD Phone: Allergies: (No Known Allergies)Date Reviewed: 12/05/2019Reviewed by: Ritika Canas MD - Review CompleteED Provider Notes: All notesHNO ID: [id number]: Julio Manzo MDService: EMERGENCYAuthor Type: Physici anFiled: [...] or mortality cardiac cath at [facility] approx 6-8 months ag o [...] week Gets together: Once a week Attends jainism service: More than 4 times per year [...] Calculation (Bez et) 515 ms Calculated P King[place] 40 degrees Calculated R [place] 41 degrees Calculated T King[place] 147 degrees Diagnosis Sinus tachycardiaProbable left atrial [...] Time: 12/05/19 12:38 PMResult Value Ref Range Melia level 1 .53 (HH) 0.6 - 1.2 MMOL/LLACTIC ACID Collection Time: 12/05/19 12:40 PMResult Value Ref Range Lactic acid 1.1 0.4 - 2.0 MMOL/LEKG:Sinus tachycardia at 100 BPM, normal axis, nothing acute.Interpreted by Julio Manzo MD11:20 AM cardiac/vascular sonographer reading shows sinus tachycardia at 100 BPM.Interpreted [...] mental status, unspecified altered mental status type R41.62426.97Patient c ondition at time of disposition: StableI [...] dailyas needed. Other, Paul, MagalyoJulio MD I, Kishore Lozano, am serving as [...] thediagnostic studies, unless otherwise noted.+ED Orde rs [id number] TOOLING ENGINEER - ED ONLY [#[id number]] Priority: STAT Class: Hospital Performe d Standing Order Information Remaining Occurrences:0/1 Interval:Continuous Last release d:12/05/2019 Released orders: SunDec 05, 2019 11:20 AM by: JULIO MANZO Type: -> Bedside N [id number] PULSE OXIMETRY CONTINUOUS [#[id number]] Priority: STAT Class: Hospital Performe d Standing Order Information Remaining Occurrences:0/1 Interval:CONTINUOUS Last release d:12/05/2019 Released orders: SunDec 05, 2019 11:20 AM by: JULIO MANZO [id number] PULSE OXIMETRY SPOT CHECK [#[id number]] Priority: STAT Class: Hospital Performed Standing Order Inf ormation Remaining Occurrences:0/1 Interval:ONE TIME Last released:12/05/2019 Release d orders: SunDec 05, 2019 11:20 AM by: JULIO MANZO [id number] OBTAIN OLD EKG [ #[id number]] Priority: Routine Class: Hospital Performed Standing Order Information Remainin g Occurrences:0/1 Interval:ONE TIME Last released:12/05/2019 Released orders : SunDec 05, 2019 11:20 AM by: JULIO MANZO [id number] TOOLING ENGINEER - ED ONLY [# [id number]] Priority: STAT Class: Hospital Performed Type: -> Bedside Released on: 12/05/2019 11:20 AM [id number] PULSE OXIMETRY CONTINUOUS [#[id number]] Priority: STAT Class: Hospital Performe d Released on: 12/05/2019 11:20 AM [id number] PULSE OXIMETRY SPOT CHECK [#[id number]] Priori ty: STAT Class: Hospital Performed Released on: 12/05/2019 11:20 AM [id number] OBTAIN OLD EKG [#[id number]] Priority: STAT Class: Hospital Performed Released on: 12/05/2019 11:20 AM [id number] VITAL SIGNS PER UNIT ROUTINE [#[id number]] Priority: STAT Class: Hospital Performed Stand ing Order Information Remaining Occurrences:0/1 Interval:CONTINUOUS Last released :12/05/2019 Released orders: SunDec 05, 2019 2:41 PM by: RITIKA CANAS Comment:More frequent ly if Indicated. [id number] BEDREST, COMPLETE [#[id number]] Priority: STAT Class: H ospital Performed Standing Order Information Remaining Occurrences:0/1 Interval:CONTIN UOUS Last released:12/05/2019 Released orders: SunDec 05, 2019 2:41 PM by: RITIKA CANAS [id number] NOTIFY PROVIDER: VITAL SIGNS CHANGES [#[id number]] Priority: STAT Class: Hospital Performe d Standing [...] Less than 120 ml in 4 hours [id number] APPLY/MAINTAIN SEQUENTIAL COMPRESSIO* [# [id number]] Priority: STAT Class: Hospital Performed Standing Order Information Remaining Occurre nces:0/1 Interval:CONTINUOUS Last released:12/05/2019 Released orders: SunDec 05, 2019 2:41 PM by: RITIKA CANAS [id number] VITAL SIGNS PER UNIT ROUTINE [#[id number]] Priorit y: STAT Class: Hospital Performed Comment:More frequently if Indicated. Released on: 12/05/2019 2 :41 PM [id number] BEDREST, COMPLETE [#[id number]] Priority: STAT Class: Hospital Performe d Released on: 12/05/2019 2:41 PM [id number] NOTIFY PROVIDER: VITAL SIGNS CHANGES [#[id number]] Priority: STAT Class: Hospital Performed Temp -> [...] carmen rs Released on: 12/05/2019 2:41 PM [id number] APPLY/MAINTAIN SEQUENTIAL COMPRESSIO* [#[id number]] P riority: STAT Class: Hospital Performed Released on: 12/05/2019 2:41 PM [id number] RT--OXYGEN CANNULA [#[id number]] Priority: STAT Class: Hospital Performed Standing Order Information Remaining Occurrences:0/1 Interval:CONTINUOUS Last released:12/05/2019 Released o rders: SunDec 05, 2019 11:20 AM by: JULIO MANZO LPM -> 2 Indications for O2? -> CHEST PAIN [id number] RT--OXYGEN CANNULA [#[id number]] Priority: STAT Class: Hospital Performe d LPM -> 2 Indications for O2? -> CHEST PAIN Released on: 12/05/2019 11:20 AM [id number] DIET NPO [#[id number]] Canceled Priority: STAT Class: Hospital Performed Cancele d by RITIKA CANAS on SunDec 05, 2019 2:41 PM Reason: None Comment: Standing Order Information Remaining Occurrences:0/1 Interval:DIET EFFECTIVE NOW Last released:12/05/2019 Release d orders: SunDec 05, 2019 11:20 AM by: JULIO MANZO NPO options: -> With Meds [id number] DIET NPO [#[id number]] Canceled Priority: STAT Class: Hospital Performed Cancele d by RITIKA CANAS on SunDec 05, 2019 2:41 PM Reason: None Comment: NPO options: -> With Meds Released on: 12/05/2019 11:20 AM [id number] DIET NPO [#[id number]] Priority: S TAT Class: Hospital Performed Standing Order Information Remaining Occurrences:0/1 Inter haile:DIET EFFECTIVE NOW Last released:12/05/2019 Released orders: SunDec 05, 2019 2:41 PM by: RITIKA CANAS [id number] DIET NPO [#[id number]] Priority: STAT Class: H ospital Performed Released on: 12/05/2019 2:41 PM [id number] SALINE LOCK IV [#[id number]] Priority: STAT Class: Hospital Performed Standing Order Information Remaining Occurrences:0 /1 Interval:ONE TIME Last released:12/05/2019 Released orders: SunDec 05, 2019 11:20 AM by: JULIO MANZO IVT11 SALINE LOCK IV [#[id number]] Priority: STAT Cl ass: Hospital Performed Released on: 12/05/2019 11:20 AM [id number] METABOLIC PANEL, COMPREHENSIVE [# [id number]] Priority: STAT Class: ER Collect Standing Order Information Remaining Occurrences:0 /1 Interval:ONE TIME Last released:12/05/2019 Released orders: SunDec 05, 2019 11:20 AM by: JULIO MANZO [id number] CBC WITH AUTOMATED DIFF [#[id number]] Priority: STAT Cl ass: ER Collect Standing Order Information Remaining Occurrences:0/1 Interval:ONE TI ME Last released:12/05/2019 Released orders: SunDec 05, 2019 11:20 AM by: JULIO MANZO [id number] TROPONIN I [#[id number]] Priority: STAT Class: ER Collect Sta nding Order Information Remaining Occurrences:0/1 Interval:ONE TIME Last released:0 12/05/2019 Released orders: SunDec 05, 2019 11:20 AM by: JULIO MANZO [id number] MAGNESIUM [#[id number]] Priority: STAT Class: ER Collect Standing Order Information Remaining Occurrences:0/1 Interval:ONE TIME Last released:12/05/2019 Released orders : SunDec 05, 2019 11:20 AM by: JULIO MANZO [id number] LACTIC ACID [#[id number]] Priority: STAT Class: ER Collect Standing Order Information Remaining Occurrences:0/2 Interval:NOW THEN EVERY 4 HOURS Last released:12/05/2019 Released orders: SunDec 05, 2019 12:06 PM by: JULIO MANZO SunDec 05, 2019 11:20 AM by: JULIO MANZO [id number] PROTHROMBIN TIME + INR [#[id number]] Priority: STAT Class: ER Collect Standing Order Information Remain ing Occurrences:0/1 Interval:ONE TIME Last released:12/05/2019 Released orders : SunDec 05, 2019 11:20 AM by: JULIO MANZO [id number] URINALYSIS W/ RFLX MICROSCOPIC [# [id number]] Priority: STAT Class: ER Collect Standing Order Information Remaining Occurrences:0 /1 Interval:ONE TIME Last released:12/05/2019 Released orders: SunDec 05, 2019 11:20 AM by: JULIO MANZO [id number] METABOLIC PANEL, COMPREHENSIVE [#[id number]] Priority: STAT Cl ass: ER Collect Specimen Source: Plasma Specimen Collected: 12/05/2019 12:38 PM Resulting Agency: [facility] Test ID: MPL Released on: 12/05/2019 11:20 AM [id number] CBC WITH A UTOMATED DIFF [#[id number]] Priority: STAT Class: ER Collect Specimen Source: Whole Blood S pecimen Collected: 12/05/2019 12:38 PM Resulting Agency: [facility] Test ID: CBCXA Released on: 12/05/2019 11:20 AM [id number] TROPONIN I [#[id number]] Prior ity: STAT Class: ER Collect Specimen Source: Plasma Specimen Collected: 12/05/2019 12:38 PM Resultin g Agency: [facility] Test ID: TROIP Released on: 12/05/2019 11:20 AM [id number] 2 MAGNESIUM [#[id number]] Priority: STAT Class: ER Collect Specimen Source : Plasma Specimen Collected: 12/05/2019 12:38 PM Resulting Agency: [facility] Test ID: MGPL Released on: 12/05/2019 11:20 AM [id number] LACTIC ACID [#[id number]] P riority: STAT Class: ER Collect Specimen Source: Plasma Specimen Collected: 12/05/2019 12:40 PM Resultin g Agency: [facility] Test ID: LAC Released on: 12/05/2019 11:20 AM [id number] PROTHR OMBIN TIME + INR [#[id number]] Priority: STAT Class: ER Collect Specimen Source: Plasma Spe cimen Collected: 12/05/2019 12:38 PM Resulting Agency: [facility] Test ID: APTHR R eleased on: 12/05/2019 11:20 AM [id number] URINALYSIS W/ RFLX MICROSCOPIC [#[id number]] Prior ity: STAT Class: ER Collect Specimen Source: Urine Specimen Collected: 12/05/2019 2:45 PM Resultin g Agency: [facility] Test ID: UA Released on: 12/05/2019 11:20 AM [id number] LITHIU M [#[id number]] Priority: STAT Class: ER Collect Standing Order Information Remaining Occurrences:0/1 Interval:ONE TIME Last released:12/05/2019 Released orders : SunDec 05, 2019 11:40 AM by: MECHELLE GAMBLE [id number] LITHIUM [# [id number]] Priority: STAT Class: ER Collect Specimen Source: Serum Specimen Collected: 12/05/2019 12 :38 PM Resulting Agency: [facility] Test ID: LI Released on: 12/05/2019 11:40 AM [id number] LITHIUM [#[id number]] Canceled Priority: STAT Class: ER Collect Canceled by TENA, LAB IN [facility] on SunDec 05, 2019 11:42 AM Reason: Other Comment: Duplicate Standing Order Information Remaining Occurrences:0/1 Interval:ONE TIME Last released:0 12/05/2019 Released orders: SunDec 05, 2019 11:41 AM by: JULIO MANZO [id number] LITHIUM [#[id number]] Canceled Priority: STAT Class: ER Collect Specimen Collected: 12/05/2019 11:45 AM Resulting Agency: [facility] Test ID: LI Canceled by TENA, [facility] on SunDec 05, 2019 11:42 AM Reason: Other Comment: Duplicate Rele ased on: 12/05/2019 11:41 AM [id number] LACTIC ACID [#[id number]] Priority: STAT Cl ass: ER Collect Resulting Agency: [facility] Test ID: LAC Released on: 12/05/2019 12:06 PM [id number] AMMONIA [#[id number]] Priority: Routine Class: ER Collect Specimen Source: Blood Standing Order Information Remaining Occurrences:0/1 Interval:ONE TI ME Last released:12/05/2019 Released orders: SunDec 05, 2019 3:19 PM by: Javier KHAN [id number] AMMONIA [#[id number]] Priority: STAT Class: ER Collect Spe cimen Source: Blood Resulting Agency: [facility] Test ID: NH3 Released on: 12/05/2019 3:19 PM [id number] BILIRUBIN, CONFIRM [#[id number]] Priority: Routine Class : ER Collect Resulting Agency: [facility] Test ID: ICTO Standing Order Informat ion Remaining Occurrences:0/1 Released orders: SunDec 05, 2019 2:45 PM by: Automatic B atch Process [id number] BILIRUBIN, CONFIRM [#[id number]] Priority: Routine Class : ER Collect Specimen Source: Miscellaneous sample Specimen Collected: 12/05/2019 2:45 PM Resultin g Agency: [facility] Test ID: ICTO Released on: 12/05/2019 2:45 PM [id number] EKG, 12 LEAD, INITIAL [#[id number]] Priority: STAT Class: Hospital Performed Stand ing Order Information Remaining Occurrences:0/1 Interval:ONE TIME Last released:0 12/05/2019 Released orders: SunDec 05, 2019 11:20 AM by: JULIO MANZO Reason for Exam: -> Chest Pain [id number] EKG, 12 LEAD, INITIAL [#[id number]] Priority: STAT Class: H ospital Performed Resulting Agency: [facility] Test ID: [id number] Reason for Exam: -> Chest Pain Releas ed on: 12/05/2019 11:20 AM [id number] XR CHEST PORT [#[id number]] Priority: STAT Clas s: Hospital Performed Standing Order Information Remaining Occurrences:0/1 Interval:ONE TI ME Last released:12/05/2019 Released orders: SunDec 05, 2019 11:20 AM by: JULIO MANZO Reason for Exam -> Chest Pain [id number] CT HEAD WO CONT [#[id number]] Priority: S TAT Class: Hospital Performed Standing Order Information Remaining Occurrences:0/1 Inter haile:ONE TIME Last released:12/05/2019 Released orders: SunDec 05, 2019 11:20 AM by: JULIO MANZO Reason for Exam -> ams [id number] XR PELV AP ONLY [#[id number]] Priority: S TAT Class: Hospital Performed Standing Order Information Remaining Occurrences:0/1 Inter haile:ONE TIME Last released:12/05/2019 Released orders: SunDec 05, 2019 11:20 AM by: JULIO MANZO Reason for Exam -> fall [id number] XR CHEST PORT [#[id number]] Priority: STAT Class: Hospital Performed Specimen Collected: 12/05/2019 12:21 PM Resulting Agency: [facility] Test ID: [id number] Reason for Exam -> Chest Pain Released on: 12/05/2019 11:[id number] HEAD WO CONT [#[id number]] Priority: STAT Class: Hospital Performed Specimen Collected : 12/05/2019 12:43 PM Resulting Agency: [facility] Test ID: [id number] Reason for Exam -> ams R eleased on: 12/05/2019 11:20 AM [id number] XR PELV AP ONLY [#[id number]] Priority: STAT Class: Hospital Performed Specimen Collected: 12/05/2019 12:23 PM Resulting Agency: [facility] Test ID : [id number] Reason for Exam -> fall Released on: 12/05/2019 11:20 AM [id number] MRI BRAIN WO CONT [#[id number]] Priority: STAT Class: Hospital Performed Standing Order Information Remaining Occurrences:0/1 Interval:ONE TIME Last released:12/05/2019 Released orders : SunDec 05, 2019 3:19 PM by: JOSE KHAN Reason for Exam -> ams [id number] MRI BRA IN WO CONT [#[id number]] Priority: STAT Class: Hospital Performed Specimen Collected : 12/05/2019 5:03 PM Resulting Agency: [facility] Test ID: [id number] Reason for Exam -> ams R eleased on: 12/05/2019 3:19 PM [id number] CULTURE, BLOOD [#[id number]] Priority: Routi ne Class: ER Collect Specimen Source: Blood Standing Order Information Remaining Occurrences:0 /1 Interval:ONE TIME Last released:12/05/2019 Released orders: SunDec 05, 2019 11:20 AM by: JULIO MANZO [id number] CULTURE, BLOOD [#[id number]] Priority: STAT Cl ass: ER Collect Specimen Source: Blood Standing Order Information Remaining Occurrences:0/1 I nterval:ONE TIME Last released:12/05/2019 Released orders: SunDec 05, 2019 11:20 AM by: JULIO MANZO [id number] CULTURE, BLOOD [#[id number]] Priority: STAT Class: E R Collect Specimen Source: Blood Specimen Collected: 12/05/2019 12:38 PM Resulting Agency: [facility] Test ID: HBCS Released on: 12/05/2019 11:20 AM [id number] CULTURE, BLOOD [#[id number]] Priority: STAT Class: ER Collect Specimen Source: Blood Specimen Collected: 12/04 12:30 PM Resulting Agency: [facility] Test ID: HBCS Released on: 12/05/2019 11:20 AM CEFTRIAXONE 1 GRAM IVPB MBP [#[id number]] Priority: STAT Class: Normal An tibiotic Indications -> Sepsis of Unknown Etiology SODIUM CHLORIDE 0.9 % IV [#[id number]] Priority: STAT Class: Normal SODIUM CHLORIDE 0.9 % IV [#[id number]] Priority : STAT Class: Normal ENOXAPARIN 40 MG/0.4 ML SUB-Q SYRINGE [#[id number]] Priority: STAT Class: N ormal ENOXAPARIN 40 MG/0.4 ML SUB-Q SYRINGE [#[id number]] Priority: STAT Class: Normal FUROSEMIDE 10 MG/ML IJ SOLN [#[id number]] Priority: STAT Class: Normal CON53 IP CONSULT TO PS YCHIATRY [#[id number]] Priority: STAT Class: Hospital Performed Standing Order Information Remaining Occurrences:0/1 Interval:ONE TIME Last released:12/05/2019 Released orders : SunDec 05, 2019 11:42 AM by: JULIO MANZO Reason for Consult: -> si Did you call or spea k to the consulting provider? -> No Consult To -> si CON53 IP CONSULT TO PSYCHIATRY [#[id number]] Priority: STAT Class: Hospital Performed Reason for Consult: -> si Did you call or spea k to the consulting provider? -> No Consult To -> si Released on: 12/05/2019 11:42 AM CON62 IP CON SULT TO INTERNAL MEDICINE [#[id number]] Priority: STAT Class: Hospital Performed Standing Order Inf ormation Remaining Occurrences:0/1 Interval:ONE TIME Last released:12/05/2019 Release d orders: SunDec 05, 2019 2:16 PM by: CARLA OTERO Reason for Consult: -> Altered mental st atus, Dr. Canas to admit Did you call or speak to the consulting provider? -> Yes CON62 IP CONSULT TO INTERNAL MEDICINE [#[id number]] Priority: STAT Class: Hospital Performed Reason for Consu lt: -> Altered mental status, Dr. Canas to admit Did you call or speak to the consulting provider? -> Yes Released on: 12/05/2019 2:16 PM CON53 IP CONSULT TO PSYCHIATRY [#[id number]] Priority: STAT Class: Hospital Performed Standing Order Information Remaining Occurrences:0 /1 Interval:ONE TIME Last released:12/05/2019 Released orders: SunDec 05, 2019 2:41 PM by: RITIKA CANAS Reason for Consult: -> adverse med reaction Did you call or speak to t he consulting provider? -> No Consult To -> Dr Aguirre Schedule When? -> TODAY CON9 IP CONSULT TO N EUROLOGY [#[id number]] Priority: STAT Class: Hospital Performed Standing Order Information Remaining Occurrences:0/1 Interval:ONE TIME Last released:12/05/2019 Released orders : SunDec 05, 2019 2:41 PM by: RITIKA CANAS Reason for Consult: -> encephalopathy adverse drug reaction Did you call or speak to the consulting provider? -> No Consult To -> Dr Jacob Schedule When? -> TODAY CON53 IP CONSULT TO PSYCHIATRY [#[id number]] Priority: STAT Class: H ospital Performed Reason for Consult: -> adverse med reaction Did you call or speak to the consulting provider? -> No Consult To -> Dr Aguirre Schedule When? -> TODAY Released on: 12/05/2019 2:41 P M CON9 IP CONSULT TO NEUROLOGY [#[id number]] Priority: STAT Class: Hospital Performe d Reason for Consult: -> encephalopathy adverse drug reaction Did you call or speak to the consulting provider? -> No Consult To -> Dr Jacob Schedule When? -> TODAY Released on: 12/05/2019 2:41 P M [id number] INITIAL PHYSICIAN ORDER: OBSERVATION* [#[id number]] Priority: Routine Class: ADT Pend Trans milvia Standing Order Information Remaining Occurrences:0/1 Interval:ONE TIME Last release d:12/05/2019 Released orders: SunDec 05, 2019 2:00 PM by: LUZ ELENA GATES Patient Class: -> OBS ERVATION Admitting Diagnosis -> Encephalopathy acute Admitting Physician -> CARLA OTERO Attending Physician -> CARLA OTERO [id number] INITIAL PHYSICIAN ORDER: OBSERVATION* [#[id number]] Priority: Routine Class: ADT Pend Transfer Patient Class: -> OBSERVATION Admitting Diagnosis -> Encephalopathy acute Admitting Physician -> CARLA OTERO Attending Physician -> CARLA OTERO Released on: 12/05/2019 2:00 PM [id number] INITIAL PHYSICIAN ORDER: INPATIENT [#[id number]] Joan renner: Routine Class: ADT Pend Transfer [...] o- n- ) Admitting Diagnosis - > Ijz-qchj-hjmemxh adverse reaction to medication Admitting Physician -> RITIKA CANAS Physician -> RITIKA CANAS Estimated Length of Stay -> 5-7 Midnights Discharge Plan: -> Other (Specify) [id number] INITIAL PHYSICIAN ORDER: INPATIENT [#[id number]] Priority: Routine Class: ADT Pend Tr ansfer [...] i- o- n- ) Admitting Diagnosis -> Piy-ckbk-fvarfis adverse reaction to medication Admitting Physician -> RITIKA CANAS Attending Physician -> MARY CANAS Estimated Length of Stay -> 5-7 Midnights Discharge Plan: -> Other (Specify) [id number] [facility] PHYSICIAN ORDER: INPATIENT [#[id number]] Priority: Routine Class: ADT Pend Transfer Status: [...] i- o- n- ) Admitting Diagnosis -> Lxk-jkkb-cbxpxmr adverse reaction to medication Admitting Physician -> RITIKA CNAAS Attending Physician -> MARY CANAS Estimated Length of Stay -> 5-7 Midnights Discharge Plan: -> Other (Specify) Released on: 12/05/2019 2:41 PM [id number] INITIAL PHYSICIAN ORDER: INPATIENT [#[id number]] Priority: Routine Class : ADT Pend Transfer [...] o- n- ) Adm itting Diagnosis -> Llq-jgea-vqkqqso adverse reaction to medication Admitting Physician -> RITIKA CANAS Attending Physician -> RITIKA CANAS Estimated Length of Stay -> 5-7 Midnights Discharge Plan: -> Other (Specify) Released on: 12/05/2019 2:41 PM COD2 FULL CODE [#[id number]] Priority: STAT Class: Hospital Performed Standing Order Information Remaining Occurrences:0 /1 Interval:CONTINUOUS Last released:12/05/2019 Released orders: SunDec 05, 2019 2:41 PM by: RITIKA CANAS COD2 FULL CODE [#[id number]] Priority: STAT Cl ass: Hospital Performed Released on: 12/05/2019 2:41 PM [id number] EEG 12-26 HR W/VIDEO [# [id number]] Priority: Routine Class: Hospital Performed Standing Order Information Remaining Occurre nces:0/1 Interval:ONE TIME Last released:12/05/2019 Released orders: SunDec 04 3:19 PM by: JOSE KHAN Reason for Exam: -> ams [id number] EEG 12-26 HR W/VIDEO [#[id number]] Priority: STAT Class: Hospital Performed Resulting Agency: [facility] Test ID: [id number] Reason for Exam: -> ams Released on: 12/05/2019 3:19 Maxwell Corona MR#: [id number] * Rm: 441- 01Ht: 5' 5.75" Wt: 300 lb Code: Full Code Iso:Diagnosis:Encep halopathy acute [G93.40]Allergies: No Known Allergies -------- Current as of: 12/05/191806 NB=New Bag --aspirin (ASPIRIN) tablet 325 mg #[id number] Admin Amount: 1 Tab (1 x 325 mg Tab) Ordered Dose: 325 mg Route: Oral Freq: ONCE Start Date: 12/24/13 No administration times (back 96 hours, ahead 96 hours). ------diphenhydrAMINE (BENADRYL) capsule 50 mg #[id number] Admin Amount: 1 Cap (1 x 50 mg Cap) Ordered Dose: 50 mg Route: Ora l Freq: NOW Start Date: 12/24/13 No administration times (back 96 hours, ahe ad 96 hours). ------diazepam (VALIUM) tablet 5 mg #[id number] Admin Amount: 1 Tab (1 x 5 mg Tab) Ordered Dose: 5 mg Route: Oral Freq: ON CE Start Date: 12/24/13 No administration times (back 96 hours, ahead 96 hours). ------lidocaine (XYLOCAINE) 10 mg/mL (1 %) injection 1-30 mL #[id number] Admin Amount: 1-30 mL Ordered Dose: 1-30 mL Route: IntraDERMal Freq: ONCE Start Date: 12/24/13 No administration times (back 96 hours, ahead 96 hours). ------heparin (PF) 2 units/ml in NS infusion 2,000 Units #[id number] Admin Amount: 1,000 mL = 2,000 Units of 2 Units/mL Ordered Dose: 1,[address] [facility]: Irrigation Freq: ONCE Start Date: 12/24/13 No administration times (back 96 hours, ahead 96 hours). ------heparinized saline 2 units/mL infusion 1,000 Units #[id number] Admin Amount: 500 mL = 1,000 Units of 2 Units/mL Ordered Dose: [address] [facility]: IntraarTERial Freq: ONCE Start Date: 12/24/13 No administration times (back 96 hours, ahead 96 hours). ------0.9% sodium chloride infusion #[id number] Ordered Dose: 75 mL/hr Route: IntraVENous Freq: CONTINUOUS Start Date: 12/24/13 Rate: 75 mL/hr Duration: No administration times (back 96 hours, ahead 96 hours). ------ioversol (OPTIRAY) 320 mg iodine/mL contrast injection 1-100 mL #[id number] Admin Amount: 1-100 mL Ordered Dose: 1-100 mL Route: IntraVENous Freq: RAD O NCE Start Date: 12/24/13 No administration times (back 96 hours, ahead 96 hours).Maxwell Bray MR#: [id number] * Rm: 441-01Ht: 5' 5.75" Wt: 300 lb Cod e: Full Code Iso:Diagnosis:Encephalopathy acute [G93.40]Allergies: No Known Allergies -------- Current as of: 12/05/19 1807 NB=New Bag --gadobutrol (GADAVIST) contrast solution 1-10 mL #[id number] Admin Amount: 1-10 mL Ordered Dose: 1-10 mL Route: IntraVENous Freq: RAD O NCE Start Date: 01/13/14 No administration times (back 96 hours, ahead 96 hours). ------sodium chloride (NS) flush 5-10 mL #[id number] Admin Amount: 5-10 mL Ordered Dose: 5-10 mL Route: IntraVENous Freq: RAD ONCE Start Date: 01/13/14 No administration times (back 96 hours, ahead 96 hours). ------sodium chloride (NS) 0.9 % flush #[id number] Ordered Dose: Route: Freq: Start Date: 01/13 No administration times (back 96 hours, ahead 96 hours). ------morphine injection 2 mg #[id number] Admin Amount: 1 mL = 2 mg of 2 mg/mL Ordered Dose: 2 mg Route: IntraVENous Freq: NOW Start Date: 03/13/15 No administration times (back 96 hours, ahe ad 96 hours). ------influenza vaccine (4 yr+)(PF) (FLUCELVAX QUAD) inj ection 0.5*#[id number] Admin Amount: 0.5 mL Ordered Dose: 0.5 mL Route: IntraMUSCular Freq: PRIOR TO DISCHARGE Start Date: 03/30/16 No administration times (back 96 hours, ahead 96 hours). ------oxyCODONE-acetaminophen (PERCOCET) 5-325 mg per tablet 1 Tab #[id number] Admin Amount: 1 Tab Ordered Dose: 1 Tab Route: Oral Freq: NOW Start Date: 09/07/17 No administration times (back 96 hours, ahead 96 hours). ------barium sulfate (READICAT) 2.1 % (w/v), 2.0 % (w /w) oral suspension 9*#[id number] Admin Amount: 900 mL Ordered Dose: 900 mL Route: Oral Delgado q: RAD ONCE Start Date: 10/15/17 No administration times (back 96 hours, ahead 96 hours). ------iopamidol (ISOVUE 300) 61 % contrast injection 100 mL #[id number] Admin Amount: 100 mL Ordered Dose: 100 mL Route: IntraVENous Freq: RAD ONC E Start Date: 10/15/17 No administration times (back 96 hours, ahead 96 hours).Maxwell Bray MR#: [id number] * Rm: 441-01Ht: 5' 5.75" Wt: 300 lb Code: Full Code Iso:Diagnosis:Encephalopathy acute [G93.40]Allergies: No Known Allergies -------- Current as of: 12/05/191806 NB=New Bag --risperiDONE (RisperDAL m-tabs) disintegrating tablet 1 mg #[id number] Admin Amount: 1 Tab (1 x 1 mg Tab) Ordered Dose: 1 mg Route: Oral Freq: ONCE Start Date: 12/24/17 No administration times (back 96 hours, ahead 96 hours). ------ALPRAZolam (XANAX) tablet 2 mg #[id number] Admin Amount: 4 Tab (4 x 0.5 mg Tab) Ordered Dose: 2 mg Route: Ora l Freq: NOW Start Date: 12/24/17 No administration times (back 96 hours, ahe ad 96 hours). ------lamoTRIgine (LaMICtal) tablet 100 mg #[id number] Admin Amount: 1 Tab (1 x 100 mg Tab) Ordered Dose: 100 mg Route: Oral Delgado q: ONCE Start Date: 12/24/17 No administration times (back 96 hours, ahead 96 hours). ------OLANZapine (ZyPREXA zydis) disintegrating tablet 5 mg #[id number] Admin Amount: 1 Tab (1 x 5 mg Tab) Ordered Dose: 5 mg Route: Oral Delgado q: ONCE Start Date: 12/25/17 No administration times (back 96 hours, ahead 96 hours). ------LORazepam (ATIVAN) tablet 2 mg #[id number] Admin Amount: 4 Tab (4 x 0.5 mg Tab) Ordered Dose: 2 mg Route: Ora l Freq: NOW Start Date: 12/25/17 No administration times (back 96 hours, ahe ad 96 hours). ------LORazepam (ATIVAN) injection 1 mg #[id number] Admin Amount: 0.5 mL = 1 mg of 2 mg/mL Ordered Dose: 1 mg Route: Int raVENous Freq: NOW Start Date: 12/25/17 No administration times (back 96 hours, ahe ad 96 hours). ------barium sulfate (EZ PAQUE) 96 % (w/w) contrast suspension 17 6 g #[id number] Admin Amount: 176 g Ordered Dose: 176 g Route: Oral Freq: RAD ONCE Start Date: 08/02/18 No administration times (back 96 hours, ahead 96 hours). ------barium sulfate (EZ PAQUE) 96 % (w/w) contrast s uspension 176 g #[id number] Admin Amount: 176 g Ordered Dose: 176 g Route: Oral Delgado q: RAD ONCE Start Date: 08/02/18 No administration times (back 96 hours, ahead 96 hours).Maxwell Ritter MR#: [id number] * Rm: 441-01Ht: 5' 575" Wt: 300 lb Cod e: Full Code Iso:Diagnosis:Encephalopathy acute [G93.40]Allergies: No Known Allergies -------- Current as of: 12/05/191806 NB=New Bag --aspirin chewable tablet 162 mg #[id number] Admin Amount: 2 Tab (2 x 81 mg Tab) Ordered Dose: 162 mg Route: Oral Freq: NOW Start Date: 08/10/19 No administration times (back 96 hours, ahead 96 hours). ------0.9% sodium chloride infusion 1,000 mL #[id number] Admin Amount: 1,000 mL Ordered Dose: 1,000 mL Route: IntraVENous Freq: ONC E Start Date: 08/16/19 Rate: 1,000 mL/hr Duration: No administration ti mes (back 96 hours, ahead 96 hours). ------methylPREDNISolone (PF) (Solu-MEDROL) injection 125 mg #[id number] Admin Amount: 2 mL = 125 mg of 125 mg/2 mL Ordered Dose: 125 mg Route: Int raVENous Freq: NOW Start Date: 08/16/19 No administration times (back 96 hours, ahe ad 96 hours). ------aspirin chewable tablet 162 mg #[id number] Admin Amount: 2 Tab (2 x 81 mg Tab) Ordered Dose: 162 mg Route: Oral Delgado q: NOW Start Date: 08/16/19 No administration times (back 96 hours, ahead 96 hours). ------haloperidoL (HALDOL) tablet 5 mg #[id number] Admin Amount: 1 Tab (1 x 5 mg Tab) Ordered Dose: 5 mg Route: Oral Delgado q: ONCE Start Date: 10/30/19 No administration times (back 96 hours, ahead 96 hours). ------cefTRIAXone (ROCEPHIN) 1 g in 0.9% sodium chloride (MBP/ADV) 50 m L M*#[id number] Admin Amount: 1 g Ordered Dose: 1 g Route: IntraVENous Freq: NOW Start Date: 12/05/19 Rate: 100 mL/hr Duration: 30 Minutes Administration linda es (back 96 hours, ahead 96 hours): 12/05/19: 1428NB -----0.9% sodium chloride infusion #[id number] Ordered Dose: 125 mL/hr Route: IntraVENous Freq: CONTINUOUS Start Date: 12/05/19 Rate: 125 mL/hr Duration: Administration times (back 96 hours, ahead 96 hours): 12/05/19: 1408NATALIEMaxwell Bray MR#: [id number] * Rm : 441-01Ht: 5' 5.75" Wt: 300 lb Code: Full Code Iso:Diagnosis:Encephalopathy acute [G93. 40]Allergies: No Known Allergies -------- Current as of: 12/05/191806 NB=New Bag --enoxaparin (LOVENOX) injection 40 mg #[id number] Admin Amount: 0.4 mL = 40 mg of 40 mg/0.4 mL Ordered Dose: [address] [facility]: SubCUTAneous Freq: EVERY 24 HOURS Start Date: 12/05/19 Administration times (back 96 h [facility] 96 hours): 12/05/19: 209912/06/19: 209912/07/19: 209912/08/19: 2099 ---furosemide (LASIX) injection 20 mg #[id number] Admin Amount: 2 mL = 20 mg of 10 mg/mL Ordered Dose: [address] [facility]: IntraVENous Freq: ONCE Start Date: 12/05/19 Administration [...] FileFollow-up Inf ormationFollow-up With:Ritika Canas MDDetails:Comments:Contact Info:[address] [facility] [address] [facility] [id number] Name Value Range Interpretation Code Description Data Melani rce(s) Supporting Document(s ) ID Date Data Source [id number] 12/05/2019 04:36:09 PM EDT [facility] The history is provided by the [...] or mortality cardiac cath at [facility] approx 6-8 months ag o [...] week Gets together: Once a week Attends jainism service: More than 4 times per year [...] yesIndependent visualization of images, tracings, or specimens: Elan Robison Dennis, MD, reviewed the patient's past history, allergies and homemedications a s documented in the nursing chart.Labs:Recent Results (from the past 12 hour(s))EKG, 1 2 LEAD, INITIAL Collection Time: 12/05/19 11:41 AMResult Value Ref Range Ventricul ar Rate 102 BPM Atrial Rate 102 BPM P-R Interval 174 ms QRS Duration 104 ms Q-T Interval 395 ms QTC Calculation (Bezet) 515 ms Calculated P Kingman 40 degrees Calculat ed R Kingman 41 degrees Calculated T Kingman 147 degrees Diagnosis Sinus tachycardiaProb able left [...] Time: 12/05/19 12:38 PMResult Value Ref Range Melia level 1.53 (HH) 0.6 - 1.2 MMOL/LLACTIC ACID Collection Time: 12/04 12:40 PMResult Value Ref Range Lactic acid 1.1 0.4 - 2.0 MMOL/LEKG:Sinus tachy cardia at 100 BPM, normal axis, nothing acute.Interpreted by Julio Manzo MD11:2 0 AM cardiac/vascular sonographer reading shows sinus tachycardia at 100 BPM. [...] cardiac monitoring, CXR, and head CT. Will manager of tax ocephin, IV fluids, and oxygen. Will consult [...] times daily asneeded. Other, Phys, MDMaoJulio MD IKishore, am serving as a scribe [...] Supporting Document(s ) ID Date Data Source [id number] 12/05/2019 04:05:06 PM EDT [facility] [address] [place] [address] [email or web address] CONSULT NOTEPatient: Maxwell Bray Se x: male [...] or sensory fuentes es. Lab significant of Melia 1.53 and elevatedliver enzymes. Neurology consult ed for encephalopathy/drug adverse reaction.Past Medical History:Diagnosis Date Other unknown and unspecified cause of morbidity or mortality cardiac cath at [facility] approx 6-8 months ago Other unknown and [...] QTC Calculation (Bezet) 515 ms Calculated P Kingman 40 degrees Calculated R Kingman 41 degrees Calculated T Kingman 147 degrees Diagnosis Sinus tachycardiaProbable left atrial [...] A-G Ratio 1.0 0.7 - 2.8CBC [place] AUTOMATED DIFF Collection Time: 12/05/19 12:38 PMResult [...] Time: 12/05/19 12:38 PMResult Value Ref Range Melia level 1.53 (HH) 0.6 - 1.2 MMOL/LLACTIC [...] were created on an independent workstation. Utilizing [facility] factureralgorithms the examination was performed [...] QTC Calculation (Bezet) 515 ms Calculated P King[place] 40 degrees Calculat ed R Kingman 41 degrees Calculated T Kingman 147 degrees Diagnosis Sinus tachycardiaProb able left [...] adalberto M79.2 Seizure disorder (HCC) G40.909 Spells [id number] Severe obesity (HCC) E66 .01 Depression F32.9 Anxiety F41.9 Bipolar disorder (HCC) F31.9 Depressive disorde r F32.9 Status post gastric bypass for obesity Z98.84 Morbid obesity (HCC) E66 .01 Mixed anxiety and depressive disorder F41.8 Vitamin D deficiency E55.9 Bipol ar disorder with severe depression (HCC) F31.4 Encephalopathy acute G93.40 Adve rse drug reaction, initial encounter T50.905A Gud-ajah-lhqbvsh adverse reaction to me dication T88.7XXA49 year old male with pmh as stated above and now with AMS and genera lizedweakness - most likely secondary to lithium toxicity - ? Seizure.Plan: Mri Brain Ammonia Monitor lithium level daily EEG - 24 hrs Seizure precautionsPaulson Gerald Flores 2019 3:19 [id number] Name Value Range Interpretation Code Description Data Melani rce(s) Supporting Document(s ) ID Date Data Source [id number] 12/05/2019 03:37:45 PM EDT [facility] sbar-q given to Evcristian Dave tr tejalport to floor Name Value Range Interpretation Code Description Data Melani rce(s) Supporting Document(s ) ID Date Data Source [id number] 12/05/2019 03:29:57 PM EDT [facility] sbar-q given to Sheri UGALDE on floor Name Value Range Interpretation Code Description Data Melani rce(s) Supporting Document(s ) ID Date Data Source [id number] 12/05/2019 03:28:02 PM EDT [facility] History & PhysicalBrian Anam Bray is [...] h igh dose amytriptylene 200 mg nightly, Melia, andVraylar 6 mg. :Melia level on prior admission therapeutic. Patient's wifecontactedthis [...] or mortality cardiac cath at [facility] approx 6-8 months ag o [...] week Gets together: Once a week Attends jainism service: More than 4 times per year [...] Calculati on (Bezet) 515 ms Calculated P Kingman 40 degrees Calculated R Kingman 41 degrees Elena culated T Kingman 147 degrees Diagnosis Sinus tachycardiaProbable left atrial [...] Time: 12/05/19 12:38 PMResult Value Ref Range Melia level 1.53 (HH) 0.6 - 1.2 MMOL/LLACTIC ACID Collection Time: 12/04 12:40 PMResult Value Ref Range Lactic acid 1.1 0.4 - 2.0 MMOL/All lab results for the last 24 hours reviewed. Serun Melia level toxicAssessment/PlanPrinci pal Problem: Adverse drug reaction, initial encounter (12/05/2019) LithiumActive Prob lems: Encephalopathy acute (12/05/2019) Tar-xsvo-chulvjb adverse reaction to med ication (12/05/2019)Neuro, and psych evaluation, hydrationGeorge MD Corey Name Value Range Interpretation Code Description Data Melani rce(s) Supporting Document(s ) ID Date Data Source [id number] 12/06/2019 12:36:10 PM EDT [facility] Name Value Range Interpretation Description Data Sup porting Code Source(s) Document(s ) Service comment [facility] Bacteria [facility] identified in [facility] specimen by Culture ID Date Data Source [id number] 12/05/2019 04:18:26 PM EDT [facility] Name Value Range Interpretation Description Data Sup porting Code Source(s) Document(s ) Color of Urine YEL Abnormal (applies [facility] - to non-numeric Good results) [facility] Appearance of CLEAR Abnormal (applies [facility] - Urine to non-numeric Good results) [facility] Specific gravity 1.033 1.003-1. Above high normal [facility] - of Urine by 030 Good Refractometry [facility] pH of Urine by 5.5 4.6-8.0 [facility] - Test strip Good [facility] Protein 30 mg/dL NEG Abnormal (applies [facility] - [Mass/volume] in to non-numeric Good Urine by Test results) [facility] Glucose NEG [facility] - [Mass/volume] in Good Urine by [facility] Automated test Hospital strip Ketones 15 mg/dL NEG Abnormal (applies [facility] - [Presence] in to non-numeric Good Urine by results) [facility] Automated test [facility] strip Bilirubin.total NEG Abnormal (applies [facility] - [Presence] in to non-numeric Good Urine results) [facility] Hemoglobin NEG [facility] - [Presence] in Good Urine by Test [facility] Urobilinogen 1.0 0.2-1.0 [facility] - [Presence] in EU/dL Good Urine by [facility] Automated test [facility] strip Nitrite NEG [facility] - [Presence] in Good Urine by [facility] test [facility] strip Leukocyte NEG [facility] - esterase Good [Presence] in [facility] Urine by Hospital Automated test strip Leukocytes 0-5 [facility] - [Presence] in Good Urine sediment [facility] by [facility] microscopy Erythrocytes 0-2 [facility] - [#/area] in Good Urine sediment [facility] by [facility] high power field Epithelial cells 0-10 [facility] - [#/area] in Good Urine sediment [facility] by [facility] high power field Bacteria NONE Abnormal (applies [facility] - [Presence] in to non-numeric Good Urine sediment results) [facility] by [facility] microscopy ID Date Data Source [id number] 12/05/2019 03:26:35 PM EDT [facility] Name Value Range Interpretation Description Data Sup porting Code Source(s) Document(s ) Bilirubin NEG [facility] - Good [Presence] in [facility] Urine by Hospital Confirmatory method ID Date Data Source [id number] 12/05/2019 02:22:27 PM EDT [facility] I spoke to Dr. Canas regarding Observation Status. Dr. Canas said patient will bemade In Patient Status today. Name Value Range Interpretation Code Description Data Melani rce(s) Supporting Document(s ) ID Date Data Source [id number] 12/05/2019 02:03:27 PM EDT [facility] SW/Psych Screener attempted to meet with Pt for MH evaluation. Pt was foundlying on stretcher with his eyes open, staring at the wall. Tube Closing Machine Operator knows this Ptfrom previous admission to the medical floor. When ask ed if Pt rememberedwriter, Pt appeared confused, but said he did. Pt stated he fell today, doesn'tremember how he was brought to the hospital. Pt appeared to be searching for hiswords and was having difficulty speaking. Pt unclear of where he is, stating[place] when asked where he was and "[place]" when asked what month it was. Whenasked if Pt was exhibiting any feelings of S/I, H/I or A/V Hallucinatio ns, Ptresponded with, "No," and confirmed he has been compliant with his psychiatricm edications. Tube Closing Machine Operator conferred with ER Attending, Dr. Manzo, who states that Ptwi ll most likely be medically admitted at this time.Krystina Centeno [facility] Name Value Range Interpretation Code Description Data Melani rce(s) Supporting Document(s ) ID Date Data Source [id number] 12/05/2019 12:53:37 PM EDT [facility] CT HEAD W/O CONTRASTPRIOR: Multiple: Mos [...] Supporting Document(s ) ID Date Data Source [id number] 12/05/2019 01:31:37 PM EDT [facility] Name Value Range Interpretation Description Data Sup porting Code Source(s) Document(s ) Lactate 1.1 0.4-2.0 [facility] - Good [Moles/volu MMOL/L [facility] me] in Hospital Serum or Plasma ID Date Data Source [id number] 12/10/2019 05:19:22 AM EDT [facility] Name Value Range Interpretation Description Data Sup porting Code Source(s) Document(s ) Service comment [facility] Bacteria [facility] - [facility] identified in [facility] Unspecified Hospital specimen by Culture ID Date Data Source [id number] 12/05/2019 02:14:34 PM EDT [facility] Name Value Range Interpretation Description Data Sup porting Code Source(s) Document(s ) Melia 1.53 0.6-1.2 Above upper panic CHS - Good [Moles/volu MMOL/L limits [facility]] in Hospital Serum or Plasma CALLED TO AND READ BACK BYSUSI GAMBLE 1414 12/05/19 [facility] ID Date Data Source [id number] 12/05/2019 01:31:37 PM EDT [facility] Name Value Range Interpretation Description Data Sup porting Code Source(s) Document(s ) Troponin 0.00-0.05 [facility] - Good I.cardiac [facility] [Mass/volume Hospital ] in Serum or Plasma [...] to 1.50 ng/mL ID Date Data Source [id number] 12/05/2019 01:31:37 PM EDT [facility] - [facility] Name Value Range Interpretation Description Data Sup porting Code Source(s) Document(s ) Sodium 134 136-145 Below low normal [facility] - Good [Moles/volume] mmol/L [facility] in Serum or Hospital Plasma Potassium 3.5 3.5-5.1 [facility] - Good [Moles/volume] mmol/L [facility] in Serum or Hospital Plasma Chloride 104 98-107 [facility] - Good [Moles/volume] mmol/L [facility] in Serum or Hospital Plasma Carbon 26 21-32 [facility] - Good dioxide, total mmol/L [facility] [Moles/volume] Hospital in Serum or Plasma Anion gap in 7 mmol/L 10-20 Below low normal [facility] - Go od Serum or [facility] Plasma Hospital Glucose 127 74-106 Above high normal [facility] - Good [Mass/volume] mg/dL [facility] in Serum or Hospital Plasma Urea nitrogen 21 mg/dL 7-18 Above high normal [facility] - Good [Mass/volume] [facility] in Serum or Hospital Plasma Creatinine 0.94 0.70-1.3 [facility] - Good [Mass/volume] mg/dL 0 [facility] in Serum or Hospital Plasma Glomerular >60 [facility] - Good filtration [facility] rate/1.73 sq M Hospital predicted among blacks [Volume Rate/Area] in Serum or Plasma by Creatinine-bas ed formula (MDRD) Glomerular >60 [facility] - Good filtration [facility] rate/1.73 sq M Hospital predicted among non-blacks [Volume Rate/Area] in Serum or Plasma by Creatinine-bas ed formula (MDRD) (NOTE)Estimated GFR is calculated using the Modification of Diet in RenalDisease (MDRD) Study equation, reported for both Americans(GFRAA) and non- Americans (GFRNA), and normalized to 1.7 6t9urgg surface area. The physician must decide which [...] normal [facility] - Good Serum or Plasma [facility] ital Bilirubin.total 0.9 mg/dL 0.2-1.0 [facility] - Good [Mass/volume] in Serum or [facility] Plasma Alanine aminotransferase 34 U/L 13-61 [facility] - Good [Enzymatic activity/volume] [facility] in Serum or Plasma Aspartate aminotransferase 47 U/L 15-37 Above high BS [facility] - Good [Enzymatic activity/volume] normal [facility] in Serum or Plasma by With P-5'-P Alkaline phosphatase 171 U/L 45-117 Above high [facility] - Good [Enzymatic activity/volume] normal [facility] in Serum or Plasma Protein [Mass/volume] in 7.5 g/dL 6.4-8.2 [facility] - Good Serum or Plasma [facility] ital Albumin [Mass/volume] in 3.8 g/dL 3.5-4.7 [facility] - Good Serum or Plasma by [facility] Bromocresol purple (BCP) dye binding method Globulin [Mass/volume] in 3.7 g/dL 1.7-4.7 [facility] - Good Serum by calculation [facility] Albumin/Globulin [Mass 1.0 0.7-2.8 [facility] - Good Ratio] in Serum or Plasma [facility] ID Date Data Source [id number] 12/05/2019 01:31:37 PM EDT [facility] - Good [facility] Name Value Range Interpretation Description Data Sup porting Code Source(s) Document(s ) Magnesium 2.9 mg/dL 1.6-2.6 Above high normal [facility] - Good [Mass/volume] [facility] in Serum or Hospital Plasma ID Date Data Source [id number] 12/05/2019 01:20:04 PM EDT [facility] - Good [facility] Name Value Range Interpretation Description Data Sup porting Code Source(s) Document(s ) Prothrombin 10.6 sec 9.4-11.1 [facility] - Good time (PT) [facility] INR in 1.0 0.8-1.2 [facility] - Good Platelet poor [facility] plasma by Hospital Coagulation assay ID Date Data Source [id number] 12/05/2019 01:07:21 PM EDT [facility] - [facility] Name Value Range Interpretation Description Data Sup porting Code Source(s) Document(s ) Leukocytes 12.4 4.8-10.6 Above high normal [facility] - [#/volume] in K/uL Good Blood by [facility] Automated count Hospital Erythrocytes 5.03 4.70-6.0 [facility] - [#/volume] in M/uL 0 Good Blood by [facility] Automated count [facility] Hemoglobin 15.4 14.0-18. [facility] - [Mass/volume] in g/dL 0 Good Blood [facility] Hematocrit 45.8 % 42.0-52. [facility] - [Volume 0 Good Fraction] of [facility] Blood by Hospital Automated count Erythrocyte mean 91.1 FL 81.0-94. [facility] - corpuscular 0 Good volume [Entitic [facility] volume] by Hospital Automated count Erythrocyte mean 30.6 PG 27.0-35. [facility] - corpuscular 0 Good hemoglobin [facility] [Entitic mass] [facility] by Automated count Erythrocyte mean 33.6 30.7-37. [facility] - corpuscular g/dL 3 Good hemoglobin [facility] [Mass/volume] by Automated count Erythrocyte 12.9 % 11.5-14. [facility] - distribution 0 Good width [Ratio] by [facility] Automated count [facility] Platelets 164 K/uL 130-400 [facility] - [#/volume] in Good Blood by [facility] Automated count [facility] Platelet mean 9.5 FL 9.2-11.8 [facility] - volume [Entitic Good volume] in Blood [facility] by Automated Hospital count Nucleated 0.0 PER 0 [facility] - erythrocytes/100 100 WBC Good leukocytes [facility] [Ratio] in Blood Hospital Nucleated 0.00 0.0-0.01 [facility] - erythrocytes K/uL Good [#/volume] in [facility] Segmented 80 % 48.0-72. Above high normal [facility] - neutrophils/100 0 [facility] leukocytes in [facility] Lymphocytes/100 8 % 18.0-40. Below low normal [facility] - leukocytes in 0 [facility] Monocytes/100 10 % 2.0-12.0 [facility] - leukocytes in [facility] Eosinophils/100 1 % 0.0-7.0 [facility] - leukocytes in [facility] Basophils/100 0 % 0.0-3.0 [facility] - leukocytes in [facility] Immature 0 % 0-0.5 [facility] - granulocytes/100 [facility] leukocytes in [facility] by Hospital Automated count Segmented 10.0 2.3-7.6 Above high normal [facility] - neutrophils K/UL Good [#/volume] in [facility] Lymphocytes 1.0 K/UL 0.9-4.2 [facility] - [#/volume] in [facility] Monocytes 1.2 K/UL 0.1-1.7 [facility] - [#/volume] in [facility] Eosinophils 0.1 K/UL 0.0-1.0 [facility] - [#/volume] in [facility] Basophils 0.0 K/UL 0.0-0.4 [facility] - [#/volume] in [facility] Immature 0.1 K/UL 0.0-0.17 [facility] - granulocytes Good [#/volume] in [facility] by Hospital Automated count Differential [facility] - cell count Good method [facility] ID Date Data Source [id number] 12/10/2019 05:19:23 AM EDT [facility] - [facility] Name Value Range Interpretation Description Data Sup porting Code Source(s) Document(s ) Service comment [facility] - [facility] Bacteria [facility] identified in [facility] Un[facility] specimen by Culture ID Date Data Source [id number] 12/05/2019 12:24:35 PM EDT [facility] - [facility] PELVIS one view.History: TraumaThe study is suboptimal due to the patient's body habitus.There is no evidence of fracture , dislocation, subluxation, bone erosion orarthritis.IMPRESSION: Grossly normal s lamar. Signing date/time: 12/05/2019 12:24 PMSigned by: CURTIS VARMA Name Value Range Interpretation Code Description Data Melani rce(s) Supporting Document(s ) ID Date Data Source [id number] 12/05/2019 12:23:11 PM EDT [facility] CHEST 1 view (s)HISTORY: Chest pain.COMP [...] Name Value Range Interpretation Code Description Data [facility] rce(s) Supporting Document(s ) ID Date Data Source [id number] 12/05/2019 11:34:39 AM EDT [facility] BIBA for fall in the middle of the night while going to bathroomC/p left hip pain Name Value Range Interpretation Code Description Data [facility] rce(s) Supporting Document(s ) ID Date Data Source [id number] 12/05/2019 11:21:27 AM EDT [facility] Please enter the current weight for this patient in [facility]. Thank you. Name Value Range Interpretation Code Description Data [facility] rce(s) Supporting Document(s ) ID Date Data Source [id number] 11/23/2019 02:02:47 PM EDT [facility] Discharge SummaryPatient: Maxwell Mendieta Xiao key Sex: male DOA: 10/29/2019Date of : 1970 Ag e: 49 y.o. LOS: LOS: 5 daysAdmit Date: 10/29/2019Discharge Date: 11/03/2019A dmission Diagnoses:#1 Altered Mental State,#2Bipolar disorder with severedepr ession (HCC) [F31.4Discharge Diagnoses: Bipolar disorder with severe depressionP mattlem List as of 11/03/2019 Date Reviewed: 07/21/2019 [...] E66.01ICD-9-CM: 278.01 07/19/2018 - Present Spells ICD-10-CM: [id number]: IMO00 01 04/08/2016 - Present Seizure disorder [...] was reported to out of work since Rajinder constantino to his symptoms of depression. Studies in the ED and subsequently provednegativ e for infectious basis for his presenting symptoms. Psyciatricconsultation was obt ained with decision to current psych outpatient medsunchanged. Patient was tr eated with parenteral hydration with benefit r6vmgxfwodqzkywmlgm responses. Of note i s fact that patient was scheduled to begin ECTtreatment for depression when Covid 1 9 pandemic curtained this plan.Consults: PsychiatrySignificant Diagnostic Studies : labs: microbiology: , radiology: and cardiacgraphics:Discharge Medications: @DISCHARGEMEDLIST@Activity: Activity as toleratedDiet: Resume previous dietWound Care: None neededFollow-up: This examiner to follow in officeRitika Canas MD Name Value Range Interpretation Code Description Data [facility](s) Supporting Document(s ) ID Date Data Source [id number] 11/03/2019 09:41:35 PM EDT [facility] Verbal shift change report given to , RN (oncoming nurse) by Scott Beverly RN (offgoing nurse). Report included the fo llowing information SBAR, Kardex,Intake/Output, MAR and Recent Res ults. Name Value Range Interpretation Code Description Data [facility](s) Supporting Document(s ) ID Date Data Source [id number] 11/03/2019 03:34:07 PM EDT [facility] Per psych note, CM to confirm patient ap pt with psychiatristCall to Dr Mateo Méndez office # [phone], office closedPati ent aware of # to call to make his own appt, psychiatry info placed on [facility] ent states his will be coming this evening to drive him homeCare Management InterventionsPCP Verified by CM: YesPalliative Care Criteria Met (RRAT>21 & CHF Dx)?: NoMode of Transport at Discharge: Other (see comment)( yanni maciel between approx5-6)Transition of Care Consult (CM Consult): Discharge Planning Physical Therapy Consult: NoOccupational Therapy Consult: NoSpeech Therapy Consul t: NoCurrent Support Network: Lives with Spouse, Own Home( [place] ,c-[phone])Confirm Follow Up Transport: FamilyThe Patient and/or Patient [...] Supporting Document(s ) ID Date Data Source [id number] 11/03/2019 02:45:48 PM EDT [facility] PHYSICAL THERAPY TREATMENTPatient: Maxwell Bray (49 [...] discussed with: Registered Nurse and patientYisroel Javier So lomiquel, PT, DPT Time Calculation: 18 mins Name Value Range Interpretation Code Description Data Melani rce(s) Supporting Document(s ) ID Date Data Source [id number] 11/03/2019 01:09:08 PM EDT [facility] - [facility] General Daily Progress NoteAdmit Date: [...] past 8 hrs: BP Temp Pulse Resp [id number]/03/19 0752 115 /76 97.6 F (36.4 C) [...] Value Range Interpretation Code Description Data Melani quinn(s) Supporting Document(s ) ID Date Data Source [id number] 11/03/2019 10:52:30 AM EDT [facility] S/O patient has seen for follow up via V ideo . He is doing much better. Hedenies any auditory or visual hallucination any mor eHe has no suicidal or homicidal thoughtsHe reports that he sees Dr. marie every ot her weeksPt wants to follow up with Dr. Marie after dischargePlan continue on a ll current psychotropic medications Requesting upper caser to confirm his a ppointment with Dr. mariebefore he discharged Please re consult if n eeded Name Value Range Interpretation Code Description Data Melani quinn(s) Supporting Document(s ) ID Date Data Source [id number] 11/03/2019 07:12:34 AM EDT [facility] Bedside and Verbal shift change report g iven to Meño Rose, RN (oncomingnurse) by June Ochoa, SUSI (offgoing nurse). Repor t included the followinginformation SBAR, Kardex, Intake/Output, MAR, Recent Resul ts and Med Rec Status. Name Value Range Interpretation Code Description Data Melani rce(s) Supporting Document(s ) ID Date Data Source [id number] 11/02/2019 11:18:25 PM EDT [facility] Problem: Falls - Risk ofGoal: *Absence [...] Supporting Document(s ) ID Date Data Source [id number] 11/02/2019 07:34:02 PM EDT [facility] Bedside shift change report given to GILLIAN KEATING (oncoming nurse) by Meño Rose(offgoing nurse). Report included the following information SBAR, Kardex andIntake/Output. Name Value Range Interpretation Code Description Data [facility] ) ID Date Data Source [id number] 11/02/2019 05:14:50 PM EDT [facility] Telehealth Progress NotePursuant to the emergency [...] [] Telephone [x] VideoconferenceDate: 11/02/2019Account Franny mber: [id number]: Maxwell Robin & Joe PROGRESS NOTE:Coordinated treatment team rounds conducted with psychiatrist, patient, nursesand/or pediatric social worker present ; dis cussions held with upper caser and/or familymembers; Chart reviewed in full in cluding desktop support consultant notes, ancillary staffnotes, vitals and labs in [facility] EMR reviewed in full.SUBJECTIVE: Pt seen for first time on Video with my SW Mendy And RN , hereports less hallucinations , as they are still there in the morning But overall better since got back on vraylar told me was scheduled [facility] but due to elective , it [...] past 8 hrs: Temp Pulse Resp BP NmE745/04/13 1546 98.3 F (36.8 C) 84 18 [...] (LOVENOX) injection 40 mg 40 mg SubCUTAneous [id number] Medications:C urrent Facility-Administered MedicationsMedication Dose Route Frequen [...] ENOX) injection 40 mg 40 mg SubCUTAneous [id number]/PLAN:Continue current kalie atment as pt is stabalizingPatient [...] Supporting Document(s ) ID Date Data Source [id number] 11/02/2019 03:02:33 PM EDT [facility] - [facility] General Daily Progress NoteAdmit Date: [...] (LOVENOX) injection 40 mg 40 mg SubCUTAneous [id number]:Patient Vitals for the past 8 hrs: BP Temp Pulse Resp S pO211/02/19 0748 120/85 98.2 F (36.8 C) 75 18 94 %11/01 07 - 11/01 1900In: -Out: 570 [Urine:570]10/30 190 - 11/01 0700In: 3612.3 [P.O.:474; I.V.:3138.3]Out: 4925 [...] Sagittal and coronal reconstruction was performed.Uti lizing predictive maintenance specialist algorithm the examination was performed to optimizeimaging [...] Name Value Range Interpretation Code Description Data [facility](s) Supporting Document(s ) ID Date Data Source [id number] 11/02/2019 07:48:14 AM EDT [facility] Verbal shift change report given to Jody wells RN (oncoming nurse) by Juliane UGALDE (offgoing nurse). Report included the following information SBAR,Kardex, Intake/Output, MAR and Recent Results Name Value Range Interpretation Code Description Data [facility](s) Supporting Document(s ) ID Date Data Source [id number] 11/02/2019 05:41:52 AM EDT [facility] Patient AOX3 with periodic confusion. In bed watching TV. All med's given asordered by , tolerated well. Fall precaution m easures reinforced. Call bellwithin reach, bed in low position. Has urinal and comm ode at bedside. Voices nocomplaint at this time. Will continue to monitor pt. Name Value Range Interpretation Code Description Data Melani rce(s) Supporting Document(s ) ID Date Data Source [id number] 11/01/2019 08:46:30 PM EDT [facility] Problem: Falls - Risk ofGoal: *Absence [...] Name Value Range Interpretation Code Description Data [facility] rce(s) Supporting Document(s ) ID Date Data Source [id number] 11/01/2019 08:00:09 PM EDT [facility] Verbal shift change report given to Ly vitale RN (oncoming nurse) by SUSI Palacio (offgoing nurse). Report included the following information SBAR,Intake/Output, MAR and Recent Results. Name Value Range Interpretation Code Description Data [facility](s) Supporting Document(s ) ID Date Data Source [id number] 11/01/2019 03:49:42 PM EDT [facility] Adult Progress NoteDate: 11/01/2019Account Number: [id number]: Maxwell Mendieta TrimerinDiagnosis: History of mood and [...] Bipolar disorder with severe depression ([facility]) 10/29/2019 Mixed anxiety and depr essive disorder 09/04/2019 Vitamin D deficiency 09/04/2019 Anxiety 0 Bipolar disorder ([facility]) 07/21/2019 Depressive disorder 07/21/2019 Status p ost gastric bypass for obesity 07/21/2019 Morbid obesity ([facility]) 07/21/2019 Severe obesity ([facility]) 07/19/2018 Spells 04/08/2016 Seizure disorder ([facility]) 04/30/2014 Insom kacey 11/04/2013 H/O gastric bypass 06/12/2013Past Surgical History:Procedur e Laterality Date ABDOMEN SURGERY PROC UNLISTED gastric bypass 2009 HX GASTRIC BYPASS roue-en-y HX ORTHOPAEDIC 1985 aarthroscopic knee surgery HX ORTHOPAED IC 1991 broken footNo Known AllergiesSocial HistoryTobacco Use Smoking [...] (LOVENOX) injection 40 mg 40 mg SubCUTAneous [id number] following information was reviewed and discussed: Patient [...] Supporting Document(s ) ID Date Data Source [id number] 11/01/2019 02:42:08 PM EDT [facility] - [facility] General Daily Progress NoteAdmit Date: [...] past 8 hrs: BP Temp Pulse Resp DuT077/03/14 0715 101/67 98 F (36.7 C) 70 [...] Sagittal and coronal reconstr uction was performed.Utilizing predictive maintenance specialist algorithm the examination was performed to optimizeimaging [...] Prominent interstitial markings arefelt to reflect vascular supervisor microwave 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 Repeat PA andlateral views the chest are advised i f there is clinical concern for pneumoniaor congestive failure.Assessment:Active Pro blems: Bipolar disorder with severe depression (HCC) (10/29/2019)Plan:Improvin g status Name Value Range Interpretation Code Description Data [facility](s) Supporting Document(s ) ID Date Data Source [id number] 11/01/2019 07:08:12 AM EDT [facility] Verbal shift change report given to Chandrakant Albert RN (oncoming nurse) byMelanie Hoffmann RN (offgoing nurse). Report incl uded the following informationSBAR, Kardex, Intake/Output, MAR and Recent Results. Name Value Range Interpretation Code Description Data [facility](s) Supporting Document(s ) ID Date Data Source [id number] 10/31/2019 07:59:03 PM EDT [facility] Verbal shift change report given to Shreya adrian RN (oncoming nurse) by SUSI Palacio (offgoing nurse). Report included the following information SBAR,Kardex, Intake/Output, MAR and Recent Results. Name Value Range Interpretation Code Description Data [facility](s) Supporting Document(s ) ID Date Data Source [id number] 10/31/2019 05:09:32 PM EDT [facility] Telehealth ConsultationPursuant to the e mergency [...] [] Telephone [x] VideoconferenceSubjective:Patient: Maxwell BrayMRN #: [id number]: [id number]: 49 y.o. Sex: maleAdm it Date: 10/29/2019Attending: [...] week Gets together: Once a week Attends jainism service: More than 4 times per year [...] mortal ity cardiac cath at [facility] approx 6-8 months ago Other [...] past 8 hrs: BP Temp Pulse Resp [id number]//20 0754 120/60 97.2 F (36.2 C) 70 20 95 %MENTA L STATUS EXAM:FINDINGS WITHIN NORMAL LIMITS (WNL) UNLESS OTHERWISE STATED BELOW:Sens orium [id number] Well relatedAppearance: OverweightMotor Behavior: Not examined Speech: [...] Supporting Document(s ) ID Date Data Source [id number] 10/31/2019 04:37:18 PM EDT [facility] - Go [address] [place], [place] [address]LVRITZV: MAXWELL BRAYMRN: [id number]: [id number]#: [id number] DATE: 10/29/2019 CONSULTATIONHISTORY OF PRESENT ILLNESS: The [...] MEDICAL HISTORY: Cardiac cath at [facility] six to eight months ago, [...] back to his psychiatrist in the [facility]u [facility].Cognitively,he seems to be fair. His memory [...] RONAL AGUIRRE MDDD: 10/30/2019 14:44:41/BR /[id number] / [id number] Name Value Range Interpretation Code Description Data Melani rce(s) Supporting Document(s ) ID Date Data Source [id number] 10/31/2019 01:47:36 PM EDT [facility] General Daily Progress NoteAdmit Date: Hospital day: .tdSubjective:Patient reportedly doing better reference activi ty. Persistent symptoms ofnausea. Also chronic frontal headache. [facility] had halluciinationsnight of admissionNo bowel activity, [...] Supporting Document(s ) ID Date Data Source [id number] 10/31/2019 12:59:26 PM EDT [facility] - [facility] physical Therapy TREATMENTPatient: Maxwell Bray [...] established plan of care.[facility]ations[facility] Recommendations for Discharge: NoneSUBJECTIVE:Patient stated "I [...] Name Value Range Interpretation Code Description Data [facility] rce(s) Supporting Document(s ) ID Date Data Source [id number] 10/31/2019 07:10:46 AM EDT [facility] Bedside and Verbal shift change report g iven to Samy UGALDE (oncoming nurse)by Cristofer Valenzuela RN (offgoing nurse). Repo rt included the following information SBAR, Kardex, MARand Recent Results. Name Value Range Interpretation Code Description Data [facility] rce(s) Supporting Document(s ) ID Date Data Source [id number] 10/30/2019 11:27:14 PM EDT [facility] Problem: Falls - Risk ofGoal: *Absence [...] Name Value Range Interpretation Code Description Data [facility](s ) ID Date Data Source [id number] 10/30/2019 08:09:55 PM EDT [facility] Susi Garcia called as pt has [...] be ordered as non formulary also At [facility] Name Value Range Interpretation Code Description Data [facility] rce(s) Supporting Document(s ) ID Date Data Source [id number] 10/30/2019 08:06:30 PM EDT [facility] Telephoned Dr. Oc tompkins pt's c/o new sy mptoms of hallucinations. Orderedreceived, relayed to RN, SUSI Marroquin on shift supervisor melting Name Value Range Interpretation Code Description Data [facility] rce(s) Supporting Document(s ) ID Date Data Source [id number] 10/30/2019 08:01:35 PM EDT [facility] Verbal shift change report given to Cecilia wells (oncoming nurse) by Samy Albert RN (offgoing nurse). Report included the fo llowing information SBAR, ProcedureSummary, Intake/Output, MAR and Recent Results. Name Value Range Interpretation Code Description Data [facility] Supporting Document(s ) ID Date Data Source [id number] 10/30/2019 02:58:51 PM EDT [facility] Problem: Mobility Impaired (Adult and Pe [...] of morbidity or mortality cardiac cath at [facility] approx 6-8 months ago Other unknown and [...] Home: NoneCritical Behavior:Neurologic State: AlertOrientation Level: Oriented T2Bvchebjbw: Appropriate for age attention/concentrationSafety/Judgement: Awareness of environmentSkin:Strength:Strength: [...] Supporting Document(s ) ID Date Data Source [id number] 10/30/2019 02:50:37 PM EDT [facility] Telehealth ConsultationPursuant to the e mergency [...] [] Telephone [] VideoconferenceSubjective:Patient: Maxwell BrayMRN #: [id number]: [id number]: 49 y.o. Sex: maleAdm it Date: 10/29/2019Attending: [...] Supporting Document(s ) ID Date Data Source [id number] 10/30/2019 02:06:26 PM EDT [facility] Care Management InterventionsPCP Verifie d by CM: YesPalliative Care Criteria Met (RRAT>21 & CHF Dx)?: NoMode of Transport at Discharge: Other (see comment)(family)Transition of Care Consu lt (CM Consult): Discharge PlanningPhysical Therapy Consult: NoOccupational Therapy Consult: NoSpeech Therapy Consult: NoCurrent Support Network: Lives with Spouse, Own Home( [place] [phone],m-[phone])Confirm Foll ow Up Transport: FamilyThe Patient and/or Patient Second Baker was Provided with a Choice of Providerand [...] home with his , is completely independent PEER SUPPORT SPECIALIST, nohome DME. Patient normally works (pre-covid) and drives. CM dept roleexplained, patient is currently denying any HC or rehab needs and states hiswife will drive him home upon DC. PT eval is ordered and pending. CM dept laila lfollow if patient has any PT needs.CASE MANAGEMENT PSYCHOSOCIAL ASSESSMENTMaxwell Bray Admission Date: 10/29/2019MRN: [id number] of : 1970Current date: 10/30/2019DISCHARGE PLAN: homePatient Info rmation:Patients Preferred Name: brianPatient Arrived Via: StretcherTransferred [facility] a [facility] facility: NoInformation Obtained From: [...] NoPCP: Ritika Canas MDAdmitting Provider: Cristi Canas [facility] PEER SUPPORT SPECIALIST: naPayor: Payor: [facility] HEALTH PLAN / Plan: [facility] HEALTH PLAN /Product Type: [employer] Payor: @[email or web address]@Bipolar disorder with severe depression (HCC) [F 31.4]Bipolar disorder with severe depression (HCC) [F31.4]Patient Active Problem List Diagnosis Code H/O gastric bypass Z98.84 Insomnia G47.00 Neuropathic pain of surekha glover M79.2 Seizure disorder ([facility]) G40.909 Spells R68.89 Severe obesity (HCC) E66. [...] solving and planning: Notes:Adeq uate coping skills: Notes:Mu-Ism/Cultural barriers: Notes:If unable to assess or n [...] Supporting Document(s ) ID Date Data Source [id number] 10/30/2019 12:38:13 PM EDT [facility] General Daily Progress NoteAdmit Date: Hospital day: .tdSubjective:Patient markedly improved this am, speech now no rmal. Denies possibleinadvertent overdose of chronic meds. Accepting of psych consult . PT toevaluate. Claims symptoms of mild nausea. Meds reviewed claims to be takin gElavil G 150 mg HS ,Klonopin 1 mg twice a day, Melia 300 twice daily, Vraylar3 m g dailyCurrent [...] past 8 hrs: BP Temp Pulse Resp PiA10610/30/19 0727 (!) 130/96 98 F (36.7 C) [...] - 0.17 K/UL DF AUTOMATEDMETABOLIC PANEL, BASIC [facility] ction Time: 10/30/19 6:40 AMResult Value Ref [...] Name Value Range Interpretation Code Description Data [facility] rce(s) Supporting Document(s ) ID Date Data Source [id number] 10/30/2019 07:52:05 AM EDT [facility] Verbal shift change report given to Chandrakant rosa RN (oncoming nurse) Tavares UGALDE (offgoing nurse). Report included the fo llowing information SBAR,Kardex, Procedure Summary, Intake/Output, MAR and Recent R esults. Name Value Range Interpretation Code Description Data [facility] rce(s) Supporting Document(s ) ID Date Data Source [id number] 10/30/2019 06:40:05 AM EDT [facility] Pt. AOX3, periodic confusion. Commode an d urinal at bedside. Seizure and fallprecaution measures in place. Voice s no complaint during shift . Name Value Range Interpretation Code Description Data [facility] rce(s) Supporting Document(s ) ID Date Data Source [id number] 10/30/2019 07:29:12 AM EDT [facility] Name Value Range Interpretation Description Data Sup porting Code Source(s) Document(s ) Sodium 139 136-145 [facility] - Good [Moles/volume] mmol/L [facility] in Serum or Hospital Plasma Potassium 3.6 3.5-5.1 [facility] - [facility] [Moles/volume] mmol/L [facility] in Serum or Hospital Plasma Chloride 110 98-107 Above high normal [facility] - Good [Moles/volume] mmol/L [facility] in Serum or Hospital Plasma Carbon 24 21-32 [facility] - Good dioxide, total mmol/L [facility] [Moles/volume] Hospital in Serum or Plasma Anion gap in 9 mmol/L 10-20 Below low normal [facility] - Go od Serum or [facility] Plasma Hospital Glucose 96 mg/dL 74-106 [facility] - Good [Mass/volume] [facility] in Serum or Hospital Plasma Urea nitrogen 10 mg/dL 7-18 [facility] - Good [Mass/volume] [facility] in Serum or Hospital Plasma Creatinine 0.81 0.70-1.3 [facility] - Good [Mass/volume] mg/dL 0 [facility] in Serum or Hospital Plasma Glomerular >60 [facility] - Good filtration [facility] rate/1.73 sq M Hospital predicted among blacks [Volume Rate/Area] in Serum or Plasma by Creatinine-bas ed formula (MDRD) Glomerular >60 [facility] - Good filtration [facility] rate/1.73 sq M Hospital predicted among non-blacks [Volume Rate/Area] in Serum or Plasma by Creatinine-bas ed formula (MDRD) Calcium 8.2 8.5-10.1 Below low normal [facility] - Good [Mass/volume] mg/dL [facility] in Serum or Hospital Plasma ID Date Data Source [id number] 10/30/2019 07:05:07 AM EDT [facility] Name Value Range Interpretation Description Data Sup porting Code Source(s) Document(s ) Leukocytes 4.8 K/uL 4.8-10.6 [facility] - [#/volume] in Good Blood by [facility] Automated [facility] Erythrocytes 4.59 4.70-6.0 Below low normal [facility] - [#/volume] in M/uL 0 Good Blood by [facility] Automated count [facility] Hemoglobin 14.0 14.0-18. [facility] - [Mass/volume] in g/dL 0 Good Blood [facility] Hematocrit 42.7 % 42.0-52. [facility] - [Volume 0 Good Fraction] of [facility] Blood by Hospital Automated count Erythrocyte mean 93.0 FL 81.0-94. [facility] - corpuscular 0 Good volume [Entitic [facility] volume] by Hospital Automated count Erythrocyte mean 30.5 PG 27.0-35. [facility] - corpuscular 0 Good hemoglobin [facility] [Entitic mass] Hospital by Automated count Erythrocyte mean 32.8 30.7-37. [facility] - corpuscular g/dL 3 Good hemoglobin [facility] concentration [facility] [Mass/volume] by Automated count Erythrocyte 13.3 % 11.5-14. [facility] - distribution 0 Good width [Ratio] by [facility] Automated count [facility] Platelets 159 K/uL 130-400 [facility] - [#/volume] in Good Blood by [facility] Platelet mean 8.6 FL 9.2-11.8 Below low normal [facility] - volume [Entitic Good volume] in Blood [facility] by Automated Hospital count Nucleated 0.0 PER 0 [facility] - erythrocytes/100 100 WBC Good leukocytes [facility] [Ratio] in Blood Hospital Nucleated 0.00 0.0-0.01 [facility] - erythrocytes K/uL Good [#/volume] in [facility] Segmented 54 % 48.0-72. [facility] - neutrophils/100 0 Good leukocytes in [facility] Lymphocytes/100 32 % 18.0-40. [facility] - leukocytes in 0 [facility] Monocytes/100 9 % 2.0-12.0 [facility] - leukocytes in [facility] Eosinophils/100 5 % 0.0-7.0 [facility] - leukocytes in [facility] Basophils/100 1 % 0.0-3.0 [facility] - leukocytes in [facility] Immature 0 % 0-0.5 [facility] - granulocytes/100 Good leukocytes in [facility] by Hospital Automated count Segmented 2.6 K/UL 2.3-7.6 [facility] - neutrophils Good [#/volume] in [facility] Lymphocytes 1.5 K/UL 0.9-4.2 [facility] - [#/volume] in [facility] Monocytes 0.4 K/UL 0.1-1.7 [facility] - [#/volume] in [facility] Eosinophils 0.2 K/UL 0.0-1.0 [facility] - [#/volume] in [facility] Basophils 0.0 K/UL 0.0-0.4 [facility] - [#/volume] in [facility] Immature 0.0 K/UL 0.0-0.17 [facility] - granulocytes Good [#/volume] in [facility] by Hospital Automated count Differential [facility] - cell count [facility] method [facility] ID Date Data Source [id number] 10/29/2019 07:40:21 PM EDT [facility] - [facility] Verbal shift change report given to Wai rogers RN(oncoming nurse) by Elizabeth Meehan RN (offgoing nurse). Report included the fo llowing information SBAR, Kardex, EDSummary, Intake/Output, MAR and Recent Results. Name Value Range Interpretation Code Description Data Melani rce(s) Supporting Document(s ) ID Date Data Source [id number] 10/30/2019 06:54:22 PM EDT [facility] Name Value Range Interpretation Description Data Sup porting Code Source(s) Document(s ) Color of Urine YEL [facility] Appearance of CLEAR [facility] - Urine [facility] Specific gravity 1.015 1.003-1. [facility] - of Urine by 030 Good Refractometry [facility] pH of Urine by 6.0 4.6-8.0 [facility] - Test strip [facility] Protein NEG [facility] - [Mass/volume] in Good Urine by Test [facility] Glucose NEG [facility] - [Mass/volume] in Good Urine by [facility] Automated test [facility] strip Ketones NEG [facility] - [Presence] in Good Urine by [facility] Automated test [facility] strip Bilirubin.total NEG [facility] - [Presence] in Good Urine [facility] Hemoglobin NEG [facility] - [Presence] in Good Urine by [facility] Urobilinogen 1.0 0.2-1.0 [facility] - [Presence] in EU/dL Good Urine by [facility] Automated test Hospital strip Nitrite NEG [facility] - [Presence] in Good Urine by [facility] Automated test Hospital strip Leukocyte NEG [facility] - esterase Good [Presence] in [facility] Urine by Hospital Automated test strip ID Date Data Source [id number] 10/29/2019 06:14:12 PM EDT [facility] Spoke with to clarify meds..correct doses obtained Name Value Range Interpretation Code Description Data Melani rce(s) Supporting Document(s ) ID Date Data Source [id number] 10/29/2019 06:01:22 PM EDT [facility] Pt unsure of dose of Vraylar will call w berta Name Value Range Interpretation Code Description Data Melani rce(s) Supporting Document(s ) ID Date Data Source [id number] 10/29/2019 03:56:40 PM EDT [facility] [id number] [employer] GSH 4 GEMA [place] MED SURG [address] [place] [address] [phone] Maxwell Bray (Male) [id number] [facility] 2 ED Dispo:ADMIT Chief Complaint: Dysarthria, Lethargy Diagnosis: Altered mental status, unspecified altered mental statu s type [] Bipolar disorder with severe depression (HCC) [] Current Providers: Att ending: Cole Ernandez; Cristi Canas Consulting Provider: Cristi Canas Primary Nurse: Kristy Moss Tech: Janet MCSN: [id number] [employer] [id number] - Bs hsi [employer] MrnMRN: [id number] [employer] [id number] - Bshsi [employer] Age Sex 1970 AGE 49 SEX Male Primary Care Provider: Ritika Canas MD Fyzmtjidv: (No Kn own Allergies)Date Reviewed: 10/29/2019Reviewed by: Ritika Canas MD - Review CompleteED Provider Notes: All no tesHNO ID: [id number]: Cristobal Ernandez MDService: -Author Type: PhysicianFiled: 10/29/19 [...] or mortality cardiac cath at [facility] approx 6-8 months ago Other [...] week Gets together: Once a week Attends jainism service: More than 4 times per year [...] QTC Calculation (Bezet) 446 ms Calculated P [place] 53 degrees Calc ulated R [place] 68 degrees Calculated T [place] 0 degrees Diagnosis Sinus tachycardiaProlonged MN intervalNo nspecific intraventricular conduction delayCBC WITH AUTOMATED [...] Time: 10/29/19 10:45 AMResult Value Ref Range Melia level <0.20 (L) 0.6 - 1.2 MMOL/L [...] contrast. Sagittal and coronalreconstruction was performed. Utilizing predictive maintenance specialist algorithm theexaminationwas performed to optimize imaging quality [...] status, unspecified altered menta l status type R41.92922.97Patient condition at time of disposition: StableI have [...] d thediagnostic studies, unless otherwise noted.+ED Orders [id number] CBC WITH AUTOMATED DIFF [# [id number]] Priority: STAT Class: ER Collect Standing Order Information Remaining Occurrences:0 /1 Interval:ONE TIME Last released:10/29/2019 Released orders: SunOctober 29, 2019 11:02 AM by: CRISTOBAL ERNANDEZ [id number] METABOLIC PANEL, COMPREHENSIVE [#[id number]] Bridgette ority: STAT Class: ER Collect Standing Order Information Remaining Occurrences:0/1 Inter haile:ONE TIME Last released:10/29/2019 Released orders: SunOctober 29, 2019 11:02 AM by: CRISTOBAL WADE [id number] PROTHROMBIN TIME + INR [#[id number]] Priority: STAT Class: E R Collect Standing Order Information Remaining Occurrences:0/1 Interval:ONE TI ME Last released:10/29/2019 Released orders: SunOctober 29, 2019 11:02 AM by: BRIE ERNANDEZ EN [id number] PTT [#[id number]] Priority: STAT Class: ER Collect Speci men Source: Blood Standing Order Information Remaining Occurrences:0/1 Interval:ONE TI ME Last released:10/29/2019 Released orders: SunOctober 29, 2019 11:02 AM by: BRIE ERNANDEZ [id number] URINALYSIS W/ RFLX MICROSCOPIC [#[id number]] Priority: STAT Class: ER Collect Sta nding Order Information Remaining Occurrences:0/1 Interval:ONE TIME Last released:0 10/29/2019 Released orders: SunOctober 29, 2019 11:02 AM by: CRISTOBAL ERNANDEZ [id number] LITHIUM [#[id number]] Priority: STAT Class: ER Collect Standing Order Information Remaining Occurrences:0/1 Interval:ONE TIME Last released:10/29/2019 Released orders : SunOctober 29, 2019 11:02 AM by: CRISTOBAL ERNANDEZ [id number] CBC WITH AUTOMATED DIFF [# [id number]] Priority: STAT Class: ER Collect Specimen Source: Whole Blood Specimen Collected: 020 10:45 AM Resulting Agency: [facility] Test ID: [id number] Released on: 0 11:02 AM [id number] METABOLIC PANEL, COMPREHENSIVE [#[id number]] Priority: STAT Class: E R Collect Specimen Source: Plasma Specimen Collected: 10/29/2019 10:45 AM Resulting Agency: [facility] Test ID: MPL Released on: 10/29/2019 11:02 AM [id number] PROTHROMBIN TIME + IN R [#[id number]] Priority: STAT Class: ER Collect Specimen Source: Plasma Specimen Collec hyun: 10/29/2019 10:45 AM Resulting Agency: [facility] Test ID: APTHR Released o n: 10/29/2019 11:02 AM [id number] PTT [#[id number]] Priority: STAT Class: ER Collect Specimen Source: Plasma Specimen Collected: 10/29/2019 10:45 AM Resulting Agency: [facility] Test ID: APTT Released on: 10/29/2019 11:02 AM [id number] URINALYSIS W/ RFLX AZ CROSCOPIC [#[id number]] Priority: STAT Class: ER Collect Resulting Agency: [facility] Test ID: UA Released on: 10/29/2019 11:02 AM [id number] LITHIUM [#[id number]] Priority: STAT Class: ER Collect Specimen Source: Serum Specimen Collected: 10/28 10:45 AM Resulting Agency: [facility] Test ID: LI Released on: 10/29/2019 11:02 AM [id number] CBC WITH AUTOMATED DIFF [#[id number]] Priority: STAT Class: E R Collect Standing Order Information Remaining Occurrences:06/25 Interval:TOMORR OW AM [id number] METABOLIC PANEL, BASIC [#[id number]] Priority: STAT Class: ER Collect St anding Order Information Remaining Occurrences:06/25 Interval:TOMORROW AM [id number] CT HEAD W O CONT [#[id number]] Priority: Routine Class: Hospital Performed Standing Or mariano Information Remaining Occurrences:0/1 Interval:ONE TIME Last released:10/29/2019 Released orders: SunOctober 29, 2019 11:02 AM by: CRISTOBAL ERNANDEZ Reason for Exam -> ams IMG 2590 XR CHEST PORT [#[id number]] Priority: STAT Class: Hospital Performe d Standing Order Information Remaining Occurrences:0/1 Interval:ONE TIME Last release d:10/29/2019 Released orders: SunOctober 29, 2019 11:02 AM by: CRISTOBAL ERNANDEZ Reason for Exam -> ams [id number] CT HEAD WO CONT [#[id number]] Priority: STAT Class: Hospital Perfo rmed Specimen Collected: 10/29/2019 11:54 AM Resulting Agency: [facility] Test ID: [id number] Ivis son for Exam -> ams Released on: 10/29/2019 11:02 AM [id number] XR CHEST PORT [#[id number]] Priority: STAT Class: Hospital Performed Specimen Collected: 10/29/2019 12:16 PM Resultin g Agency: [facility] Test ID: [id number] Reason for Exam -> ams Released on: 10/29/2019 11:02 AM [id number] EKG, 12 LEAD, INITIAL [#[id number]] Priority: STAT Class: Hospital Performe d Standing Order Information Remaining Occurrences:0/1 Interval:ONE TIME Last release d:10/29/2019 Released orders: SunOctober 29, 2019 11:02 AM by: CRISTOBAL ERNANDEZ Reason for Exam : -> chest pain [id number] EKG, 12 LEAD, INITIAL [#[id number]] Priority: STAT Class: H ospital Performed Resulting Agency: [facility] Test ID: [id number] Reason for Exam: -> chest pain Releas ed on: 10/29/2019 11:02 AM [id number] POC GLUCOSE [#[id number]] Priority: STAT Cl ass: Hospital Performed Standing Order Information Remaining Occurrences:0/1 Interval:ONE TI ME Last released:10/29/2019 Released orders: SunOctober 29, 2019 11:02 AM by: BRIE ERNANDEZ HALI [id number] POC GLUCOSE [#[id number]] Priority: STAT Class: Hospital Performe d Released on: 10/29/2019 11:02 AM [id number] VITAL SIGNS PER UNIT ROUTINE [#[id number]] Priorit y: STAT Class: Hospital Performed Standing Order Information Remaining Occurrences:0/1 Inte rval:CONTINUOUS Last released:10/29/2019 Released orders: SunOctober 29, 2019 2:54 PM by: RITIKA CANAS Comment:More frequently if Indicated. [id number] BEDREST, COMPLETE [#[id number]] Priority: STAT Class: Hospital Performed Standing Order Information Remainin g Occurrences:0/1 Interval:CONTINUOUS Last released:10/29/2019 Released orders : SunOctober 29, 2019 2:54 PM by: RITIKA CANAS [id number] NOTIFY PROVIDER: VITAL SIGNS CHANGES [# [id number]] Priority: STAT Class: Hospital Performed Standing Order [...] Less than 120 ml in 4 hours [id number] APPLY/MAINTAIN SEQUENTIAL COMPRESSIO* [#[id number]] Priority: ST AT Class: Hospital Performed Standing Order Information Remaining Occurrences:0/1 Inter haile:CONTINUOUS Last released:10/29/2019 Released orders: SunOctober 29, 2019 2:54 PM by: RITIKA CANAS [id number] VITAL SIGNS PER UNIT ROUTINE [#[id number]] Priority: STAT Class: H ospital Performed Comment:More frequently if Indicated. Released on: 10/29/2019 2:54 PM [id number] BEDREST, COMPLETE [#[id number]] Priority: STAT Class: Hospital Performed Relea sed on: 10/29/2019 2:54 PM [id number] NOTIFY PROVIDER: VITAL SIGNS CHANGES [#[id number]] Priority: STAT Class: Hospital Performed Temp -> [...] carmen rs Released on: 10/29/2019 2:54 PM [id number] APPLY/MAINTAIN SEQUENTIAL COMPRESSIO* [#[id number]] P riority: STAT Class: Hospital Performed Released on: 10/29/2019 2:54 PM SODIUM CHLORIDE 0.9 % IJ SYRG [#[id number]] Priority: STAT Class: Normal SODIUM CHLORIDE 0.9 % IJ SYRG [#[id number]] Priority: STAT Class: Normal ACETAMINOPHEN 325 MG TABLET [# [id number]] Priority: STAT Class: Normal ENOXAPARIN 40 MG/0.4 ML SUB-Q SYRINGE [#[id number]] Priority: STAT Class: Normal SODIUM CHLORIDE 0.9 % IV [#[id number]] Priority: STAT Class: Normal [id number] GLUCOSE, POC [#[id number]] Priority: Routine Class : ER Collect Resulting Agency: [facility] Test ID: BGG Standing Order Informati on Remaining Occurrences:0/1 Released orders: SunOctober 29, 2019 11:26 AM by: Automatic B [facility] Process [id number] GLUCOSE, POC [#[id number]] Priority: Routine Class : ER Collect Specimen Source: Whole Blood Specimen Collected: 10/29/2019 11:26 AM Resulting Agency: [facility] Test ID: BGG Released on: 10/29/2019 11:26 AM [id number] IP CONSULT TO PRIMARY CARE PROVIDER [#[id number]] Priority: STAT Class: Hospital Performed Standing Order Inf ormation Remaining Occurrences:0/1 Interval:ONE TIME Last released:10/29/2019 Relea sed orders: SunOctober 29, 2019 12:59 PM by: CRISTOBAL ERNANDEZ Reason for Consult: -> admit Did you call or speak to the consulting provider? -> No Consult To -> dr canas [id number] IP CONSULT TO PRIMAR Y CARE PROVIDER [#[id number]] Priority: STAT Class: Hospital Performed Reason for Consult: -> ad rei Did you call or speak to the consulting provider? -> No Consult To -> dr canas Released on: 12:59 PM CON53 IP CONSULT TO PSYCHIATRY [#[id number]] Priority: STAT Class: H ospital Performed Standing [...] -> TODAY CON53 IP CONSULT TO PSYCHIATRY [#[id number]] Priority: STAT Class: Hospital Performed Reason for Consult: -> 49 yo male with severe bipolar diseas e, admitted with slurred speech, severe weakness Did you call or speak to t he consulting provider? -> No Consult To -> Dr Aguirre Schedule When? -> TODAY Released on: 10/29/2019 2:54 PM [id number] INITIAL PHYSICIAN ORDER: INPATIENT [#[id number]] Priority: Routine Class : ADT Pend Transfer [...] Discharge Plan: -> Home with Office Follow-up [id number] INITIAL PHYSICIAN ORDER: INPATIENT [# [id number]] Priority: Routine Class: ADT Pend Transfer Status: [...] Foll ow-up Released on: 10/29/2019 2:43 PM [id number] INITIAL PHYSICIAN ORDER: INPATIENT [#[id number]] Priority: Routine Class: ADT Pend Transfer [...] 3-4 Midnights Discharge Plan: -> Other (Specify) [id number] INITIAL PHYSIC JOSE ORDER: INPATIENT [#[id number]] Priority: Routine Class: ADT Pend Transfer Status: [...] 2:54 PM IVT3 INSERT PERIPHERAL IV [# [id number]] Priority: STAT Class: Hospital Performed Standing Order Information Remaining Occurre nces:0/1 Interval:ONE TIME Last released:10/29/2019 Released orders: SunOctober 28 2:54 PM by: RITIKA CANAS IVT3 INSERT PERIPHERAL IV [#[id number]] Priority: ST AT Class: Hospital Performed Released on: 10/29/2019 2:54 PM CON75 IP CONSULT TO PHYSICAL THERAPY [#[id number]] Priority: STAT Class: Hospital Performed Standing Order Information Remainin g Occurrences: Interval:DAILY Last released:10/29/2019 Released orders : SunOctober 29, 2019 2:54 PM by: RITIKA CANAS CON75 IP CONSULT TO PHYSICAL THERAPY [#[id number]] Priority: STAT Class: Hospital Performed Released on: 10/29/2019 2:54 PM COD2 FULL CODE [#[id number]] Priority: STAT Class: Hospital Performed Standing Order Inf ormation Remaining Occurrences:0/1 Interval:CONTINUOUS Last released:10/29/2019 Rel eased orders: SunOctober 29, 2019 2:54 PM by: RITIKA CANAS COD2 FULL CODE [#[id number]] Priority: STAT Class: Hospital Performed Released on: 10/29/2019 2:54 PM [id number] 4 DIET FULL LIQUID [#[id number]] Priority: STAT Class: Hospital Performed Stand ing Order Information Remaining Occurrences:0/1 Interval:DIET EFFECTIVE NOW Last released:10/29/2019 Released orders: SunOctober 29, 2019 2:54 PM by: RITIKA CANAS Comment:A dvance as tolerated to regular diet [id number] DIET FULL LIQUID [#[id number]] Priority: STAT Class: Hospital Performed Comment:Advance as tolerated to regular diet Released on: 10/29/2019 2:54 JesusitaMaxwell mcleod MR#: [id number] * Rm: 416-02Ht: 5' 7" Wt: 3 00 lb Code: Full Code Iso:Diagnosis:Bipolar disorder with severe depression (HCC) [F31.4]Allergies : No Known Allergies -------- Current as of: 10/29/19 1556 ---aspirin (ASPIRIN) tablet 325 mg #[id number] Admin Amount: 1 Tab (1 x 325 mg Tab) Ordered Dose: 325 mg Route: Oral Freq: ONCE Start Date: 12/24/13 No administration times (back 96 hours, ahead 96 hours). ------diphenhydrAMINE (BENADRYL) capsule 50 mg #[id number] Admin Amount: 1 Cap (1 x 50 mg Cap) Ordered Dose: [address] [facility]: Oral Freq: NOW Start Date: 12/24/13 No administration times (back 96 hours, ahe ad 96 hours). ------diazepam (VALIUM) tablet 5 mg #[id number] Admin Amount: 1 Tab (1 x 5 mg Tab) Ordered Dose: 5 mg Route: Ora l Freq: ONCE Start Date: 12/24/13 No administration times (back 96 hours, ahe ad 96 hours). ------lidocaine (XYLOCAINE) 10 mg/mL (1 %) injection 1-30 mL #[id number] Admin Amount: 1-30 mL Ordered Dose: 1-30 mL Route: IntraDERMal Freq: ONC E Start Date: 12/24/13 No administration times (back 96 hours, ahead 96 hours). ------heparin (PF) 2 units/ml in NS infusion 2,000 Units #[id number] Admin Amount: 1,000 mL = 2,000 Units of 2 Units/mL Ordered Dose: 1,000 mL Route: Irrigation Freq: ONCE Start Date: 12/24/13 No administration times (b ack 96 hours, ahead 96 hours). ------heparinized saline 2 units/mL infusion 1,000 Units #[id number] Admin Amount: 500 mL = 1,000 Units of 2 Units/mL Ordered Dose: 500 mL R oute: IntraarTERial Freq: ONCE Start Date: 12/24/13 No administration times (back 96 hours, ahead 96 hours). ------0.9% sodium chloride infusion #[id number] Ordered Dose: 75 mL/hr Route: IntraVENous Freq: CONTINUOUS Start Date: 12/24/13 Rate: 75 mL/hr Duration: No administration times (back 96 hours, ahead 96 hours). ------ioversol (OPTIRAY) 320 mg iodine/mL contrast injection 1-100 mL #[id number] Admin Amount: 1-100 mL Ordered Dose: 1-100 mL Route: IntraVENous Freq: RAD ONCE Start Date: 12/24/13 No administration times (back 96 hours, ahead 96 hours).Maxwell Bray MR#: [id number] * Rm: [id number]: 5' 7" Wt: 300 lb Code: Full Code Iso:Diagnosis:Bipolar disorder with severe depression ([facility]) [F31.4]Allergies: No Kn own Allergies -------- Current as of: 10/29/19 1556 ---gadobutrol (GADAVIST) contrast solution 1-10 mL #[id number] Admin Amount: 1-10 mL Ordered Dose: 1-10 mL Route: IntraVENo us Freq: RAD ONCE Start Date: 01/13/14 No administration times (back 96 hours, [facility] ad 96 hours). ------sodium chloride (NS) flush 5-10 mL #[id number] Admin Amount: 5-10 mL Ordered Dose: 5-10 mL Route: IntraVENous Freq: RA D ONCE Start Date: 01/13/14 No administration times (back 96 hours, ahead 96 hours). ------sodium chloride (NS) 0.9 % flush #[id number] Ordered Dose: Route: Freq: Start D ate: 01/13/14 No administration times (back 96 hours, ahead 96 hours). ------morphine injection 2 mg #[id number] Admin Amount: 1 mL = 2 mg of 2 mg/mL Ordered Dose: 2 mg Route: Int raVENous Freq: NOW Start Date: 03/13/15 No administration times (back 96 hours, [facility] ad 96 hours). ------influenza vaccine (4 yr+)(PF) (FLUCELVAX QUAD) inj ection 0.5*#[id number] Admin Amount: 0.5 mL Ordered Dose: 0.5 mL Route: IntraMUSCular Freq : PRIOR TO DISCHARGE Start Date: 03/30/16 No administration times (back 96 hours, ahead 96 hours). ------oxyCODONE-acetaminophe n (PERCOCET) 5-325 mg per tablet 1 Tab #[id number] Admin Amount: 1 Tab Ordered Dose: 1 Tab Route: Oral Freq: NOW Start Date: 09/07/17 No administration times (back 96 hours, ahead 96 hours). ------barium sulfate (READICAT) 2.1 % (w/v), 2.0 % (w /w) oral suspension 9*#[id number] Admin Amount: 900 mL Ordered Dose: 900 mL Route: Ora l Freq: RAD ONCE Start Date: 10/15/17 No administration times (back 96 hours, ahe ad 96 hours). ------iopamidol (ISOVUE 300) 61 % contrast injection 100 mL #[id number] Admin Amount: 100 mL Ordered Dose: 100 mL Route: IntraVENous Freq: RAD O NCE Start Date: 10/15/17 No administration times (back 96 hours, ahead 96 hours).Maxwell Bray MR#: [id number] * Rm: [id number]: 5' 7" Wt: 300 lb Cod e: Full Code Iso:Diagnosis:Bipolar disorder with severe depression (HCC) [F31.4]Allergies: No Kn own Allergies -------- Current as of: 10/29/19 1556 ---risperiDONE (RisperDAL m-tabs) disintegrating tablet 1 mg #[id number] Admin Amount: 1 Tab (1 x 1 mg Tab) Ordered Dose: [address] [facility]: Oral Freq: ONCE Start Date: 12/24/17 No administration times (back 96 hours, e ad 96 hours). ------ALPRAZolam (XANAX) tablet 2 mg #[id number] Admin Amount: 4 Tab (4 x 0.5 mg Tab) Ordered Dose: 2 mg Route: Ora l Freq: NOW Start Date: 12/24/17 No administration times (back 96 hours, e ad 96 hours). ------lamoTRIgine (LaMICtal) tablet 100 mg #[id number] Admin Amount: 1 Tab (1 x 100 mg Tab) Ordered Dose: 100 mg Route: Ora l Freq: ONCE Start Date: 12/24/17 No administration times (back 96 hours, e ad 96 hours). ------OLANZapine (ZyPREXA zydis) disintegrating tablet 5 mg #[id number] Admin Amount: 1 Tab (1 x 5 mg Tab) Ordered Dose: 5 mg Route: Ora l Freq: ONCE Start Date: 12/25/17 No administration times (back 96 hours, e ad 96 hours). ------LORazepam (ATIVAN) tablet 2 mg #[id number] Admin Amount: 4 Tab (4 x 0.5 mg Tab) Ordered Dose: 2 mg Route: Ora l Freq: NOW Start Date: 12/25/17 No administration times (back 96 hours, e ad 96 hours). ------LORazepam (ATIVAN) injection 1 mg #[id number] Admin Amount: 0.5 mL = 1 mg of 2 mg/mL Ordered Dose: [address] [facility]: IntraVENous Freq: NOW Start Date: 12/25/17 No administration times (back 96 hours, ahead 96 hours). ------barium sulfate (EZ PAQUE) 96 % (w/w) contrast suspension 17 6 g #[id number] Admin Amount: 176 g Ordered Dose: 176 g Route: Oral Freq: RAD ONCE Start Date: 08/02/18 No administration times (back 96 hours, ahead 96 hours). ------barium sulfate (EZ PAQUE) 96 % (w/w) contrast suspension 17 6 g #[id number] Admin Amount: 176 g Ordered Dose: 176 g Route: Oral Freq: RAD ONCE Start Date: 08/02/18 No administration times (back 96 hours, ahead 96 hours).Maxwell Bray MR#: [id number] * Rm: [id number]: 5' 7" Wt: 300 lb Code: Full Co de Iso:Diagnosis:Bipolar disorder with severe depression ([facility]) [F31.4]Allergies: No Known Allergies -------- Current as of: 05/06/20 1556 ---aspirin chewable tablet 162 mg #[id number] Admin Amount: 2 Tab (2 x 81 mg Tab) Ordered Dose: 162 mg Route: Ora l Freq: NOW Start Date: 08/10/19 No administration times (back 96 hours, ahe ad 96 hours). ------0.9% sodium chloride infusion 1,000 mL #[id number] Admin Amount: 1,000 mL Ordered Dose: 1,000 mL Route: IntraVENous Freq: O NCE Start Date: 08/16/19 Rate: 1,000 mL/hr Duration: No administratio n times (back 96 hours, ahead 96 hours). ------methylPREDNISolone (PF) (Solu-MEDROL) injection 125 mg #[id number] Admin Amount: 2 mL = 125 mg of 125 mg/2 mL Ordered Dose: [address] [facility]: IntraVENous Freq: NOW Start Date: 08/16/19 No administration times (back 9 6 hours, ahead 96 hours). ------aspirin chewable tablet 162 mg #[id number] Admin Amount: 2 Tab (2 x 81 mg Tab) Ordered Dose: 162 mg Route: Ora l Freq: NOW Start Date: 08/16/19 No administration times (back 96 hours, ahe ad 96 hours). ------sodium chloride (NS) flush 5-40 mL #[id number] Admin Amount: 5-40 mL Ordered Dose: 5-40 mL Route: IntraVENous Freq: EV AN 8 HOURS Start Date: 10/29/19 Administration times (back 96 hours, ahead 96 hours): : 1400 2200 10/30/19: 0600 1400 2200 10/31/19: 0600 1400 2200 11/01/19: 0600 1400 2200 11/02/19: 0600 1400 ---sodium chloride (NS) flush 5-40 mL #[id number] Admin Amount: 5-40 mL Ordered Dose: 5-40 mL Route: IntraVENous Freq: NEEDED Start Date: 10/29/19 No administration times (back 96 hours, ahead 96 hours). ------acetaminophen (TYLENOL) tablet 650 mg #[id number] Admin Amount: 2 Tab (2 x 325 mg Tab) Ordered Dose: [address] [facility]: Oral Freq: EVERY 4 HOURS NEEDED Start Date: 10/29/19 No administration times (back 96 hours, ahe ad 96 hours).Maxwell Bray MR#: [id number] * Rm: [id number]: 5' 7" Wt: 3 00 lb Code: Full Code Iso:Diagnosis:Bipolar disorder with severe depression (HCC) [F31.4]Allergies : No Known Allergies -------- Current as of: 10/29/19 1556 ---enoxaparin (LOVENOX) injection 40 mg #[id number] Admin Amount: 0.4 mL = 40 mg of 40 mg/0.4 mL Ordered Dose: 40 mg Route: SubCUTAneous Freq: EVERY 24 HOURS Start Date: 10/29/19 Administration times (back 96 hours, ahead 96 hours): 10/29/19: 145410/30/19: 14510/31/19: 14511/01/19: 14511/02/19 : 1455 ---0.9% sodium chloride infusion #[id number] Ordered Dose: 100 mL/hr Route: IntraVENous Freq: CONTINUOUS Start Date: 10/29/19 Rate: 100 mL/hr Duration: Administration times (back 96 hours, ahead 96 hours): 10/29/19: 1455 ED Current OP MedicationsVraylar 3 mg ca psuleSig:Take 3 mg by mouth nightly.Dispense Amount:Start Date:09/03/2019End Date:Doc. Provider: Danilo Helmsamitriptyline (ELAVIL) 150 mg tabletSig:Take 150 mg by mouth nightly.Dispense Amount:Star t Date:08/20/2019End Date:Doc. Provider: Provider, Danilolithium carbonate 150 mg capsuleSig:Take 300 mg by [...] Supporting Document(s ) ID Date Data Source [id number] 10/29/2019 03:54:13 PM EDT [facility] History & PhysicalBrian Anam Bray is [...] or mortality cardiac cath at [facility] approx 6-8 months ag o [...] week Gets together: Once a week Attends jainism service: More than 4 times per year [...] 150 mg by mouth nightly. 08/20/19 Y esProrubens Historicallithium carbonate 150 mg capsule Take 300 mg by mouth two (2) times daily (withmeals). Yes Other, Phys, MDclonazePAM (KLONOPIN) 2 mg tablet Take 1 mg by mouth two (2) times daily asneeded. Other, Phys, Misti Known AllergiesRevie w of Systems: Unreliable due [...] trast. Sagittal and coronal reconstruction was performed.Utilizing predictive maintenance specialist alg orithm the examination was performed to [...] QTC Calculation (Bezet) 446 ms Calculated P Kingman 53 degrees Calculat ed R Kingman 68 degrees Calculated T Kingman 0 degrees Diagnosis Sinus tachycardiaProl onged MN intervalNonspecific intraventricular conduction delayCBC WITH AUTOMATED DIFF [...] lydia: 10/29/19 10:45 AMResult Value Ref Range Melia level <0.20 (L) 0.6 - 1.2 MMOL/L GLUCOSE, POC Collection Time: 10/29/19 11:26 AMResult Value Ref Range Glucose, bedsid e 102 65 - 110 MG/DLAll lab results for the last 24 hours reviewed.Assessment/PlanAc tive Problems: Bipolar disorder with severe depression (HCC) (10/29/2019) possible [place]entina dvertentoverdoseGeaustin Canas MD Name Value Range Interpretation Code Description Data Melani rce(s) Supporting Document(s ) ID Date Data Source [id number] 10/29/2019 03:42:10 PM EDT [facility] TRANSFER - OUT REPORT:Verbal report give n to herminio RN(name) on Maxwell Bray being transferred to(unit) for routine progr ession of careReport consisted of patient's Situation, Background, Assessment andRec ommendations(SBAR).Information from the following report(s) SBAR, Kardex, ED Sum heather BAY andRekristy Results was reviewed with the receiving [...] Supporting Document(s ) ID Date Data Source [id number] 10/29/2019 02:28:59 PM EDT [facility] The history is provided by the [...] mortal ity cardiac cath at [facility] approx 6-8 months ago Other [...] week Gets together: Once a week Attends jainism service: More than 4 times per year [...] QTC Calculation (Bezet) 446 ms Calculated P King[place] 53 degr ees Calculated R King[place] 68 degrees Calculated T King[place] 0 degrees Diagnosis Sinus tachycar diaProlonged MN intervalNonspecific intraventricular conduction delayCBC WIT H AUTOMATED [...] lydia: 10/29/19 10:45 AMResult Value Ref Range Melia level <0.20 (L) 0.6 - 1.2 MMOL/L [...] Sagittal and coronalreconstru ction was performed. Utilizing predictive maintenance specialist algorithm the examinationwas performed t o optimize [...] Supporting Document(s ) ID Date Data Source [id number] 10/29/2019 12:17:28 PM EDT [facility] XR CHEST PORTCLINICAL INDICATION PROVIDE D:. [...] Supporting Document(s ) ID Date Data Source [id number] 10/29/2019 11:55:57 AM EDT [facility] CT HEAD WO CONTClinical data: amsPriors: 03/13/2015.Technique: Multiple axial images were obtained from the skullbase to the vertexwithout administration of intravenous contrast. Sagittal and coronalreconstru ction was performed. Utilizing predictive maintenance specialist algorithm the examinationwas performed t o optimize [...] Supporting Document(s ) ID Date Data Source [id number] 10/29/2019 11:48:34 AM EDT [facility] Name Value Range Interpretation Description Data Sup porting Code Source(s) Document(s ) Glucose 102 MG/DL 65-110 [facility] - Good [Mass/volume] [facility] in Blood by [facility] Automated test strip ID Date Data Source [id number] 10/29/2019 10:49:56 AM EDT [facility] Patient lethargic, BIBA from home for le thargy and slurred speech. Name Value Range Interpretation Code Description Data Melani rce(s) Supporting Document(s ) ID Date Data Source [id number] 10/29/2019 11:29:33 AM EDT [facility] Name Value Range Interpretation Code Description Data Supporting Source(s) Document(s ) Melia 0.6-1.2 Below low normal [facility] - Good [Moles/volum [facility] e] in Serum Hospital or Plasma ID Date Data Source [id number] 10/29/2019 11:28:52 AM EDT [facility] Name Value Range Interpretation Description Data Sup porting Code Source(s) Document(s ) Sodium 136 136-145 [facility] - Good [Moles/volume] mmol/L [facility] in Serum or Hospital Plasma Potassium 4.4 3.5-5.1 [facility] - Good [Moles/volume] mmol/L [facility] in Serum or Hospital Plasma Chloride 106 98-107 [facility] - Good [Moles/volume] mmol/L [facility] in Serum or Hospital Plasma Carbon 22 21-32 [facility] - Good dioxide, total mmol/L [facility] [Moles/volume] Hospital in Serum or Plasma Anion gap in 12 10-20 [facility] - Good Serum or mmol/L [facility] Plasma Hospital Glucose 108 74-106 Above high normal [facility] - Good [Mass/volume] mg/dL [facility] in Serum or Hospital Plasma Urea nitrogen 16 mg/dL 7-18 [facility] - Good [Mass/volume] [facility] in Serum or Hospital Plasma Creatinine 1.05 0.70-1.3 [facility] - Good [Mass/volume] mg/dL 0 [facility] in Serum or Hospital Plasma Glomerular >60 [facility] - Good filtration [facility] rate/1.73 sq M Hospital predicted among blacks [Volume Rate/Area] in Serum or Plasma by Creatinine-bas ed formula (MDRD) Glomerular >60 [facility] - Good filtration [facility] rate/1.73 sq M Hospital predicted among non-blacks [Volume Rate/Area] in Serum or Plasma by Creatinine-bas ed formula (MDRD) (NOTE)Estimated GFR is calculated using the Modification of Diet in RenalDisease (MDRD) Study equation, reported for both Americans(GFRAA) and non- Americans (GFRNA), and normalized to 1.7 0o0xvji surface area. The physician must decide which [...] 8.5-10.1 [facility] - Good Serum or Plasma [facility] ital Bilirubin.total 0.7 mg/dL 0.2-1.0 [facility] - Good [Mass/volume] in Serum or [facility] Plasma Alanine aminotransferase 30 U/L 13-61 [facility] - Good [Enzymatic activity/volume] [facility] in Serum or Plasma Aspartate aminotransferase 27 U/L 15-37 [facility] HS - Good [Enzymatic activity/volume] [facility] in Serum or Plasma by With P-5'-P Alkaline phosphatase 139 U/L 45-117 Above high [facility] - Good [Enzymatic activity/volume] normal [facility] in Serum or Plasma Protein [Mass/volume] in 7.6 g/dL 6.4-8.2 [facility] - Good Serum or Plasma [facility] ital Albumin [Mass/volume] in 3.9 g/dL 3.5-4.7 [facility] - Good Serum or Plasma by [facility] Bromocresol purple (BCP) dye binding method Globulin [Mass/volume] in 3.7 g/dL 1.7-4.7 [facility] - Good Serum by calculation [facility] Albumin/Globulin [Mass 1.0 0.7-2.8 [facility] - Good Ratio] in Serum or Plasma [facility] ID Date Data Source [id number] 10/29/2019 11:20:29 [facility] Name Value Range Interpretation Description Data Sup porting Code Source(s) Document(s ) aPTT in 22.2 SEC 21.0-28. [facility] - Good Platelet poor 0 [facility] plasma by [facility] Coagulation assay Therapeutic Range = 42.0-60.0 secs ID Date Data Source [id number] 10/29/2019 11:20:29 AM EDT [facility] - [facility] Name Value Range Interpretation Description Data Sup porting Code Source(s) Document(s ) Prothrombin 10.3 sec 9.4-11.1 [facility] - Good time (PT) [facility] INR in 1.0 0.8-1.2 [facility] - Good Platelet poor [facility] plasma by Hospital Coagulation assay ID Date Data Source [id number] 10/29/2019 11:11:49 AM [facility] Name Value Range Interpretation Description Data Sup porting Code Source(s) Document(s ) Leukocytes 8.1 K/uL 4.8-10.6 [facility] - [#/volume] in Good Blood by [facility] count [facility] Erythrocytes 5.52 4.70-6.0 [facility] - [#/volume] in M/uL 0 Good Blood by [facility] count [facility] Hemoglobin 16.7 14.0-18. [facility] - [Mass/volume] in g/dL 0 Good Blood [facility] Hematocrit 51.8 % 42.0-52. [facility] - [Volume 0 Good Fraction] of [facility] Blood by Hospital Automated count Erythrocyte mean 93.8 FL 81.0-94. [facility] - corpuscular 0 Good volume [Entitic [facility] volume] by Hospital Automated count Erythrocyte mean 30.3 PG 27.0-35. [facility] - corpuscular 0 Good hemoglobin [facility] [Entitic mass] Hospital by Automated count Erythrocyte mean 32.2 30.7-37. [facility] - corpuscular g/dL 3 Good hemoglobin [facility] concentration Hospital [Mass/volume] by Automated count Erythrocyte 13.2 % 11.5-14. [facility] - distribution 0 Good width [Ratio] by [facility] Automated count Hospital Platelets 193 K/uL 130-400 [facility] - [#/volume] in [facility] Blood by [facility] Automated count Hospital Platelet mean 8.6 FL 9.2-11.8 Below low normal [facility] - volume [Entitic Good volume] in Blood [facility] by Automated Hospital count Nucleated 0.0 PER 0 [facility] - erythrocytes/100 100 WBC Good leukocytes [facility] [Ratio] in Blood [facility] Nucleated 0.00 0.0-0.01 [facility] - erythrocytes K/uL Good [#/volume] in [facility] Segmented 79 % 48.0-72. Above high normal [facility] - neutrophils/100 0 Good leukocytes in [facility] Lymphocytes/100 10 % 18.0-40. Below low normal [facility] - leukocytes in 0 [facility] Blood [facility] Monocytes/100 8 % 2.0-12.0 [facility] - leukocytes in [facility] Eosinophils/100 1 % 0.0-7.0 [facility] - leukocytes in [facility] Blood [facility] Basophils/100 0 % 0.0-3.0 [facility] - leukocytes in [facility] Blood [facility] Immature 1 % 0-0.5 Above high normal [facility] - granulocytes/100 Good leukocytes in [facility] Blood by Hospital Automated count Segmented 6.4 K/UL 2.3-7.6 [facility] - neutrophils Good [#/volume] in [facility] Lymphocytes 0.8 K/UL 0.9-4.2 Below low normal [facility] - [#/volume] in [facility] Blood [facility] Monocytes 0.7 K/UL 0.1-1.7 [facility] - [#/volume] in [facility] Eosinophils 0.1 K/UL 0.0-1.0 [facility] - [#/volume] in [facility] Basophils 0.0 K/UL 0.0-0.4 [facility] - [#/volume] in [facility] Immature 0.1 K/UL 0.0-0.17 [facility] - granulocytes Good [#/volume] in [facility] Automated count Differential [facility] - cell count [facility] ID Date Data Source [id number] 09/15/2019 09:44:01 AM EDT [facility] Clinical Indications/Reason For Exam: pa in.AP, [...] Supporting Document(s ) ID Date Data Source [id number] 09/15/2019 09:41:40 AM EDT [facility] THORACIC SPINE 4 views.History: Pain.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 Signing date/time: 09/15/2019 9:41 AMSigned by: CURTIS VARMA Name Value Range Interpretation Code Description Data Melani rce(s) Supporting Document(s ) ID Date Data Source [id number] 09/15/2019 09:40:53 AM EDT [facility] Clinical indications with reason for exa [...] Name Value Range Interpretation Code Description Data [facility] rce(s) Supporting Document(s ) ID Date Data Source [id number] 08/17/2019 08:25:20 AM [facility] History: Chest PainTechnique: Portable c hest [...] Name Value Range Interpretation Code Description Data [facility] rce(s) Supporting Document(s ) ID Date Data Source [id number] 08/16/2019 11:12:22 PM [facility] The history is provided by the [...] or mortality cardiac cath at [facility] approx 6-8 months ago Other [...] e Gets together: Not on file Attends jainism service: Not on file 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 [...] deficit. Sensory: No sensory deficit.Psychiatric: Behavior: Behavior normal.MDMProcedIndio Alvarado NP, reviewed the patient's pas t history, allergies andhome medications as documented in the nursing chart.Labs:Rec ent Results (from the past 12 hour(s))EKG, 12 LEAD, INITIAL Collection Time: 08/16/19 8:47 PMResult Value Ref Range Ventricular Rate 109 BPM Atrial Rate 112 BPM P-R Int erval 175 ms QRS Duration 91 ms Q-T Interval 319 ms QTC Calculation (Bezet) 429 ms Ca lculated P Kingman 36 degrees Calculated R King[place] 77 degrees Calculated T Kingman -24 degrees Diagnosis Sinus tachycardiaBorderline T abnormalities, [...] Time: 08/16/19 9:00 PMResult Value Ref Range Melia level 0.21 (L) 0.6 - 1.2 MMOL/LEKG: sinus tach ycardia, rate 109Radiology:CXR: no acute findings<EMERGENCY DEPARTMENT CASE [facility]>Impression/Differential Diagnosis: Allergic reaction allergic, drug reactio n,ACS, pulmonary embolismED Course: Patient presents short of breath and mildly tach ycardic complainingof new onset rash to face anterior chest and posterior chest.Plan: Labs, chest x-ray, EKG, troponin, d-dimer, prednisone, Pepcid, vevslxdxorw51:04 PM patient verbalizes relief of symptoms rash has faded. He denies chestpain he denie s shortness of breath.Patient was advised that we cannot rule out allergic drug re action as he isrecently just restarted taking his lithium. Patient advised to discuss takinglithium with his psychiatrist as soon as possible.Patient reassessed at [facility] by me. Feels better at [...] time of disposition: stableI have reviewed the [facility] medications:Prior to Admission medicationsMedication Sig Start [...] 36N*ENCOUNTER 08/16/2019 10:46:05 PM EST [facility] - [facility] [id number] [facility] [address] [place] [facility] [address] [phone] Maxwell Bray (Male) [id number] ES I 3 ED Dispo:DISCHARGE Chief Complaint: Allergic Reaction Diagnosis: Allergic reaction, initial encounter [] Allergic reaction to drug, in itial encounter [] Current Providers: Attending: Javier Quezada Nurse Practitioner: Javier Ward Primary Nurse: HARINDER AcuñaN: [id number] Print Group [phone] - [facility] MrnMRN: [id number] Print Group [id number] - [facility] Age Sex 1970 AGE 49 SEX Male Primary Care Provider: Ritika Canas MD Fbojxadsi: (No Known Allergies)Date Reviewed: 08/16/2019Reviewed by: Zahraa Prince RN - Review CompleteED Provider Notes: No not es of this type exist for this encounter.ED Orders BUPROPION XL 300 MG 24 HR TAB [#[id number]] Priority: Routine Class: Historical Med LITHIUM CARBONATE 150 MG CAP [#[id number]] Priority: Routine Class: Historical Med FAMOTIDINE 20MG + NS 10 ML IV [#[id number]] Priority: STAT Class: Normal H2RA INDICATION -> Adverse reaction/Anaphylaxis SODIUM CH LORIDE 0.9 % IV [#[id number]] Priority: STAT Class: Normal METHYLPREDNISOLONE (PF) 125 MG/2 ML * [#[id number]] Priority: STAT Class: Normal ASPIRIN 81 MG CHEWABLE TAB [# [id number]] Priority: STAT Class: Normal PREDNISONE 50 MG TAB [#[id number]] Bridgette ority: Routine Class: Normal [id number] TOOLING ENGINEER - ED ONLY [#[id number]] Priority: STAT C lass: Hospital Performed Standing Order Information Remaining Occurrences:0/1 Interval:Contin uous Last released:08/16/2019 Released orders: Sat Aug 16, 2019 9:02 PM by: Javier POLLOCK Type: -> Bedside [id number] OBTAIN OLD EKG [#[id number]] Priority: Routi ne Class: Hospital Performed Standing Order Information Remaining Occurrences:0/1 Inter haile:ONE TIME Last released:08/16/2019 Released orders: Sat Aug 16, 2019 9:02 PM by: INDIO WARD [id number] PULSE OXIMETRY CONTINUOUS [#[id number]] Priority: STAT Class: H ospital Performed Standing Order Information Remaining Occurrences:0/1 Interval:CONTIN UOUS Last released:08/16/2019 Released orders: Sat Aug 16, 2019 9:02 PM by: Javier POLLOCK [id number] TOOLING ENGINEER - ED ONLY [#[id number]] Priority: STAT Class: Hospital Perfo rmed Type: -> Bedside Released on: 08/16/2019 9:02 PM [id number] OBTAIN OLD EKG [#[id number]] Priority: STAT Class: Hospital Performed Released on: 08/16/2019 9:02 PM [id number] PULSE OXIMETRY CONTINUOUS [#[id number]] Priority: STAT Class: Hospital Performed Relea sed on: 08/16/2019 9:02 PM [id number] DIET NPO [#[id number]] Priority: STAT Cla ss: Hospital Performed Standing Order Information Remaining Occurrences:0/1 Interval:DIET E FFECTIVE NOW Last released:08/16/2019 Released orders: Sat Aug 16, 2019 9:02 PM by: INDIO WARD NPO options: -> With Meds [id number] DIET NPO [#[id number]] Priority: STAT Class: Hospital Performed NPO options: -> With Meds Released on: 08/16/2019 9:02 PM [id number] SALINE LOCK IV [#[id number]] Priority: STAT Class: Hospital Performe d Standing Order Information Remaining Occurrences:0/1 Interval:ONE TIME Last released: 08/16/2019 Released orders: Sat Aug 16, 2019 9:02 PM by: INDIO POLLOCK [id number] SALIN E LOCK IV [#[id number]] Priority: STAT Class: Hospital Performed Released on : 08/16/2019 9:02 PM [id number] METABOLIC PANEL, COMPREHENSIVE [#[id number]] Priority: STAT Class: E R Collect Standing Order Information Remaining Occurrences:0/1 Interval:ONE TIME Last r eleased:08/16/2019 Released orders: Sat Aug 16, 2019 9:02 PM by: INDIO POLLOCK [id number] CBC WITH AUTOMATED DIFF [#[id number]] Priority: STAT Class: ER Collect Standing Order Info rmation Remaining Occurrences:0/1 Interval:ONE TIME Last released:08/16/2019 Released orders: Sat Aug 16, 2019 9:02 PM by: INDIO POLLOCK [id number] TROPONIN I [#[id number]] Priority: STAT Class: ER Collect Standing Order Information Remaining Occurre nces:0/1 Interval:ONE TIME Last released:08/16/2019 Released orders: Sat Aug 16 9:02 PM by: INDIO POLLOCK [id number] MAGNESIUM [#[id number]] Priorit y: STAT Class: ER Collect Standing Order Information Remaining Occurrences:0/1 Inter haile:ONE TIME Last released:08/16/2019 Released orders: Sat Aug 16, 2019 9:02 PM by: INDIO WARD [id number] D DIMER [#[id number]] Priority: STAT Class: E R Collect Standing Order Information Remaining Occurrences:0/1 Interval:ONE TIME Last r eleased:08/16/2019 Released orders: Sat Aug 16, 2019 9:02 PM by: INDIO POLLOCK [id number] METABOLIC PANEL, COMPREHENSIVE [#[id number]] Priority: STAT Class: ER Collect Specimen Source: Plas ma Specimen Collected: 08/16/2019 9:00 PM Resulting Agency: [facility] Test ID: MPL Released on: 08/16/2019 9:02 PM [id number] CBC WITH AUTOMATED DIFF [#[id number]] Prior ity: STAT Class: ER Collect Specimen Source: Whole Blood Specimen Collected: 08/16/2019 9:00 PM Resultin g Agency: [facility] Test ID: [id number] Released on: 08/16/2019 9:02 PM [id number] TROPONIN I [#[id number]] Priority: STAT Class: ER Collect Specimen Source : Plasma Specimen Collected: 08/16/2019 9:00 PM Resulting Agency: [facility] Test ID: TROIP Released on: 08/16/2019 9:02 PM [id number] MAGNESIUM [#[id number]] Priority: STAT Class: ER Collect Specimen Source: Plasma Specimen Collected: 08/16/2019 9:00 PM Resultin g Agency: [facility] Test ID: MGPL Released on: 08/16/2019 9:02 PM [id number] D DIMER [#[id number]] Priority: STAT Class: ER Collect Specimen Source : Plasma Specimen Collected: 08/16/2019 9:00 PM Resulting Agency: [facility] Test ID: [id number] Released on: 08/16/2019 9:02 PM [id number] LITHIUM [#[id number]] Priority: STAT Class: ER Collect Standing Order Information Remaining Occurrences:0/1 Inter haile:ONE TIME Last released:08/16/2019 Released orders: Sat Aug 16, 2019 9:02 PM by: INDIO WARD [id number] LITHIUM [#[id number]] Priority: STAT Class: E R Collect Specimen Source: Serum Specimen Collected: 08/16/2019 9:00 PM Resulting Agency: [facility] Test ID: LI Released on: 08/16/2019 9:02 PM [id number] EKG, 12 LEAD, INITIAL [#[id number]] Priority: STAT Class: Hospital Performed Standing Order Information Remainin g Occurrences:0/1 Interval:ONE TIME Last released:08/16/2019 Released orders : Sat Aug 16, 2019 9:02 PM by: INDIO POLLOCK Reason for Exam: -> Chest Pain [id number] EKG, 12 LEAD, INITIAL [#[id number]] Priority: STAT Class: Hospital Performed Resulting Age ncy: GSH MUSE Test ID: [id number] Reason for Exam: -> Chest Pain Released on: 08/16/2019 9:02 PM [id number] 0 XR CHEST PORT [#[id number]] Priority: STAT Class: Hospital Performed Stand ing Order Information Remaining Occurrences:0/1 Interval:ONE TIME Last released:0 08/16/2019 Released orders: Sat Aug 16, 2019 9:02 PM by: INDIO POLLOCK Reason for Exam -> Chest Pain [id number] XR CHEST PORT [#[id number]] Priority: STAT Class: H ospital Performed Resulting Agency: [facility] Test ID: [id number] Reason for Exam -> Chest Pain Rele ased on: 08/16/2019 9:02 JesusitaMaxwell mcleod MR#: [id number] * Rm: [id number] Ht: 5' 10" Wt: 280 lb Code: Prior Iso:Diagnosis:Allergies: No Known Allergies -------- Current as of: 08/16/19 6266 GI=Given IC=IV Complet ed NB=New Bag --aspirin (ASPIRIN) tablet 325 mg #[id number] Admin Amount: 1 Tab (1 x 325 mg Tab) Ordered Dose: 325 mg Route: Oral Freq: ONCE Start Date: 12/24/13 No administration times (back 96 hours, ahead 96 hours). ------diphenhydrAMINE (BENADRYL) capsule 50 mg #[id number] Admin Amount: 1 Cap (1 x 50 mg Cap) Ordered Dose: 50 mg Route: Ora l Freq: NOW Start Date: 12/24/13 No administration times (back 96 hours, ahe ad 96 hours). ------diazepam (VALIUM) tablet 5 mg #[id number] Admin Amount: 1 Tab (1 x 5 mg Tab) Ordered Dose: 5 mg Route: Oral Freq: ON CE Start Date: 12/24/13 No administration times (back 96 hours, ahead 96 hours). ------lidocaine (XYLOCAINE) 10 mg/mL (1 %) injection 1-30 mL #[id number] Admin Amount: 1-30 mL Ordered Dose: 1-30 mL Route: IntraDERMal Freq: ONCE Start Date: 12/24/13 No administration times (back 96 hours, ahead 96 hours). ------heparin (PF) 2 units/ml in NS infusion 2,000 Units #[id number] Admin Amount: 1,000 mL = 2,000 Units of 2 Units/mL Ordered Dose: 1,[address] [place]: Irrigation Freq: ONCE Start Date: 12/24/13 No administration times (back 96 hours, ahead 96 hours). ------heparinized saline 2 units/mL infusion 1,000 Units #[id number] Admin Amount: 500 mL = 1,000 Units of 2 Units/mL Ordered Dose: [address] [place]: IntraarTERial Freq: ONCE Start Date: 12/24/13 No administration times (back 96 hours, ahead 96 hours). ------0.9% sodium chloride infusion #[id number] Ordered Dose: 75 mL/hr Route: IntraVENous Freq: CONTINUOUS Start Date: 12/24/13 Rate: 75 mL/hr Duration: No administration times (back 96 hours, ahead 96 hours). ------ioversol (OPTIRAY) 320 mg iodine/mL contrast injection 1-100 mL #[id number] Admin Amount: 1-100 mL Ordered Dose: 1-100 mL Route: IntraVENous Freq: RAD O NCE Start Date: 12/24/13 No administration times (back 96 hours, ahead 96 hours).Maxwell Bray MR#: [id number] * Rm: [id number]: 5' 10" Wt: 280 lb Co de: Prior Iso:Diagnosis:Allergies: No Known Allergies -------- Current as of: 08/16/192245 GI=Given IC=IV Complet ed NB=New Bag --gadobutrol (GADAVIST) contrast solution 1-10 mL #[id number] Admin Amount: 1-10 mL Ordered Dose: 1-10 mL Route: IntraVENous Freq: RAD O NCE Start Date: 01/13/14 No administration times (back 96 hours, ahead 96 hours). ------sodium chloride (NS) flush 5-10 mL #[id number] Admin Amount: 5-10 mL Ordered Dose: 5-10 mL Route: IntraVENous Freq: RAD ONCE Start Date: 01/13/14 No administration times (back 96 hours, ahead 96 hours). ------sodium chloride (NS) 0.9 % flush #[id number] Ordered Dose: Route: Freq: Start Date: 01/13 No administration times (back 96 hours, ahead 96 hours). ------morphine injection 2 mg #[id number] Admin Amount: 1 mL = 2 mg of 2 mg/mL Ordered Dose: 2 mg Route: IntraVENous Freq: NOW Start Date: 03/13/15 No administration times (back 96 hours, ahe ad 96 hours). ------influenza vaccine (4 yr+)(PF) (FLUCELVAX QUAD) inj ection 0.5*#[id number] Admin Amount: 0.5 mL Ordered Dose: 0.5 mL Route: IntraMUSCular Freq: PRIOR TO DISCHARGE Start Date: 03/30/16 No administration times (back 96 hours, ahead 96 hours). ------oxyCODONE-acetaminophen (PERCOCET) 5-325 mg per tablet 1 Tab #[id number] Admin Amount: 1 Tab Ordered Dose: 1 Tab Route: Oral Freq: NOW Start Date: 09/07/17 No administration times (back 96 hours, ahead 96 hours). ------barium sulfate (READICAT) 2.1 % (w/v), 2.0 % (w /w) oral suspension 9*#[id number] Admin Amount: 900 mL Ordered Dose: 900 mL Route: Oral Delgado q: RAD ONCE Start Date: 10/15/17 No administration times (back 96 hours, ahead 96 hours). ------iopamidol (ISOVUE 300) 61 % contrast injection 100 mL #[id number] Admin Amount: 100 mL Ordered Dose: 100 mL Route: IntraVENous Freq: RAD ONC E Start Date: 10/15/17 No administration times (back 96 hours, ahead 96 hours).Maxwell Bray MR#: [id number] * Rm: [id number]: 5' 10" Wt: 280 lb Code: Prior Iso:Diagnosis:Allergies: No Known Allergies -------- Current as of: 08/16/192245 GI=Given IC=IV Complet ed NB=New Bag --risperiDONE (RisperDAL m-tabs) disintegrating tablet 1 mg #[id number] Admin Amount: 1 Tab (1 x 1 mg Tab) Ordered Dose: 1 mg Route: Oral Freq: ONCE Start Date: 12/24/17 No administration times (back 96 hours, ahead 96 hours). ------ALPRAZolam (XANAX) tablet 2 mg #[id number] Admin Amount: 4 Tab (4 x 0.5 mg Tab) Ordered Dose: 2 mg Route: Ora l Freq: NOW Start Date: 12/24/17 No administration times (back 96 hours, ahe ad 96 hours). ------lamoTRIgine (LaMICtal) tablet 100 mg #[id number] Admin Amount: 1 Tab (1 x 100 mg Tab) Ordered Dose: 100 mg Route: Oral Delgado q: ONCE Start Date: 12/24/17 No administration times (back 96 hours, ahead 96 hours). ------OLANZapine (ZyPREXA zydis) disintegrating tablet 5 mg #[id number] Admin Amount: 1 Tab (1 x 5 mg Tab) Ordered Dose: 5 mg Route: Oral Delgado q: ONCE Start Date: 12/25/17 No administration times (back 96 hours, ahead 96 hours). ------LORazepam (ATIVAN) tablet 2 mg #[id number] Admin Amount: 4 Tab (4 x 0.5 mg Tab) Ordered Dose: 2 mg Route: Ora l Freq: NOW Start Date: 12/25/17 No administration times (back 96 hours, ahe ad 96 hours). ------LORazepam (ATIVAN) injection 1 mg #[id number] Admin Amount: 0.5 mL = 1 mg of 2 mg/mL Ordered Dose: 1 mg Route: Int raVENous Freq: NOW Start Date: 12/25/17 No administration times (back 96 hours, ahe ad 96 hours). ------barium sulfate (EZ PAQUE) 96 % (w/w) contrast suspension 17 6 g #[id number] Admin Amount: 176 g Ordered Dose: 176 g Route: Oral Freq: RAD ONCE Start Date: 08/02/18 No administration times (back 96 hours, ahead 96 hours). ------barium sulfate (EZ PAQUE) 96 % (w/w) contrast s uspension 176 g #[id number] Admin Amount: 176 g Ordered Dose: 176 g Route: Oral Delgado q: RAD ONCE Start Date: 08/02/18 No administration times (back 96 hours, ahead 96 hours).Maxwell Ritter MR#: [id number] * Rm: [id number]: 5' 10" Wt: 280 lb Co de: Prior Iso:Diagnosis:Allergies: No Known Allergies -------- Current as of: 08/16/192245 GI=Given IC=IV Complet ed NB=New Bag --aspirin chewable tablet 162 mg #[id number] Admin Amount: 2 Tab (2 x 81 mg Tab) Ordered Dose: 162 mg Route: Oral Freq: NOW Start Date: 08/10/19 No administration times (back 96 hours, ahead 96 hours). ------famotidine (PF) (PEPCID) 20 mg in 0.9% sodium chloride 10 mL inje cti*#[id number] Admin Amount: 20 mg Ordered Dose: 20 mg Route: IntraVENous Freq: EVERY 12 H OURS Start Date: 08/16/19 Administration times (back 96 hours, ahead 96 hours): 08/16/19: 9G I 08/17/19: 89908/18/19: 89908/19/19: 89908/20/19: 899 2099 ---0.9% sodium chloride infusion 1,000 mL #[id number] Admin Amount: 1,000 mL Ordered Dose: 1,000 mL Route: IntraVENous Freq: ONC E Start Date: 08/16/19 Rate: 1,000 mL/hr Duration: Administration times (back 96 hours, ahead 96 hours): 08/16/19: 2119NB 2245IC -----methylPREDNISolone (PF) (Solu-MEDROL) injection 125 mg #[id number] Admin Amount: 2 mL = 125 mg of 125 mg/2 mL Ordered Dose: 125 mg Route: Int raVENous Freq: NOW Start Date: 08/16/19 Administration times (back 96 hours, ahe ad 96 hours): 08/16/19: 2118GI -----aspirin chewable tablet 162 mg #[id number] Admin Amount: 2 Tab (2 x 81 [...] With:Ritika Canas M DDetails:In 2 daysComments:Contact Info:[phone]-up With:[facility] DE[facility]MENTDetails:Comments:As needed, If symptoms worsenContact Info:[address] [facility] [phone] Name Value Range Interpretation Code Description Data Melani rce(s) Supporting Document(s ) ID Date Data Source [id number] 08/16/2019 10:45:45 PM [facility] IV site clean/dry/intact, gauze dressing applied. Pt received written and verbaldischarge instructions. Verbalize d understanding of same. Ambulated out of EDwith steady gait and in no distress. Name Value Range Interpretation Code Description Data Melani rce(s) Supporting Document(s ) ID Date Data Source [id number] 08/16/2019 09:58:14 PM [facility] Name Value Range Interpretation Description Data Sup porting Code Source(s) Document(s ) Melia 0.21 0.6-1.2 Below low normal [facility] - Good [Moles/volu MMOL/L [facility] [place]] in Hospital Serum or Plasma ID Date Data Source [id number] 08/16/2019 09:52:[address] [facility] Value Range Interpretation Code Description Data Melani rce(s) Supporting Document(s ) Fibrin <500 [facility] - [facility] D-dimer FEU [facility] [Mass/volume] Hospital in Platelet poor plasma (NOTE)Combination of a D-Dimer result wi thin the reference range and a lowclinical pretest probability has good negative pr edictive value fordeep venous thrombosis.If results are utilized for VTE evaluation, <500 ng/ml is consideredto be negative. ID Date Data Source [id number] 08/16/2019 09:44:39 PM EST [facility] Value Range Interpretation Description Data Sup porting Code Source(s) Document(s ) Troponin 0.00-0.05 [facility] - Good I.cardiac [facility] [Mass/volume Hospital ] in Serum or Plasma [...] to 1.50 ng/mL ID Date Data Source [id number] 08/16/2019 09:44:[address] [facility] [facility] Value Range Interpretation Description Data Sup porting Code Source(s) Document(s ) Sodium 138 136-145 [facility] - Good [Moles/volume] mmol/L [facility] in Serum or Hospital Plasma Potassium 3.4 3.5-5.1 Below low normal [facility] - Good [Moles/volume] mmol/L [facility] in Serum or Hospital Plasma Chloride 108 98-107 Above high normal [facility] - Good [Moles/volume] mmol/L [facility] in Serum or Hospital Plasma Carbon 20 21-32 Below low normal [facility] - Good dioxide, total mmol/L [facility] [Moles/volume] Hospital in Serum or Plasma Anion gap in 14 10-20 [facility] - Good Serum or mmol/L [facility] Plasma Hospital Glucose 105 74-106 [facility] - Good [Mass/volume] mg/dL [facility] in Serum or Hospital Plasma Urea nitrogen 20 mg/dL 7-18 Above high normal [facility] - Good [Mass/volume] [facility] in Serum or Hospital Plasma Creatinine 0.90 0.70-1.3 [facility] - Good [Mass/volume] mg/dL 0 [facility] in Serum or Hospital Plasma Glomerular >60 [facility] - Good filtration [facility] rate/1.73 sq M Hospital predicted among blacks [Volume Rate/Area] in Serum or Plasma by Creatinine-bas ed formula (MDRD) Glomerular >60 [facility] - Good filtration [facility] rate/1.73 sq M Hospital predicted among non-blacks [Volume Rate/Area] in Serum or Plasma by Creatinine-bas ed formula (MDRD) (NOTE)Estimated GFR is calculated using the Modification of Diet in RenalDisease (MDRD) Study equation, reported for both Americans(GFRAA) and non- Americans (GFRNA), and normalized to 1.7 7e5rujm surface area. The physician must decide which [...] normal [facility] - Good Serum or Plasma [facility] Hosp ital Bilirubin.total 0.3 mg/dL 0.2-1.0 [facility] - Good [Mass/volume] in Serum or [facility] Plasma Alanine aminotransferase 37 U/L 13-61 [facility] - Good [Enzymatic activity/volume] [facility] Hospital in Serum or Plasma Aspartate aminotransferase 22 U/L 15-37 [facility] - Good [Enzymatic activity/volume] [facility] in Serum or Plasma by With P-5'-P Alkaline phosphatase 98 U/L 45-117 [facility] - G ood [Enzymatic activity/volume] [facility] in Serum or Plasma Protein [Mass/volume] in 7.0 g/dL 6.4-8.2 [facility] - Good Serum or Plasma [facility] ital Albumin [Mass/volume] in 3.7 g/dL 3.5-4.7 [facility] - Good Serum or Plasma by [facility] ospital Bromocresol purple (BCP) dye binding method Globulin [Mass/volume] in 3.3 g/dL 1.7-4.7 [facility] - Good Serum by calculation [facility] Albumin/Globulin [Mass 1.1 0.7-2.8 [facility] - Good Ratio] in Serum or Plasma [facility] ID Date Data Source [id number] 08/16/2019 09:44:39 PM EST [facility] - Good [facility] Name Value Range Interpretation Description Data Sup porting Code Source(s) Document(s ) Magnesium 2.3 mg/dL 1.6-2.6 [facility] - Good [Mass/volume] [facility] in Serum or Hospital Plasma ID Date Data Source [id number] 08/16/2019 09:23:23 PM EST [facility] - Good [facility] Name Value Range Interpretation Description Data Sup porting Code Source(s) Document(s ) Leukocytes 7.6 K/uL 4.8-10.6 [facility] - [#/volume] in Good Blood by [facility] Erythrocytes 4.97 4.70-6.0 [facility] - [#/volume] in M/uL 0 Good Blood by [facility] Hemoglobin 15.2 14.0-18. [facility] - [Mass/volume] in g/dL 0 Good Blood [facility] Hematocrit 45.0 % 42.0-52. [facility] - [Volume 0 Good Fraction] of [facility] Blood by [facility] Automated count Erythrocyte mean 90.5 FL 81.0-94. [facility] - corpuscular 0 Good volume [Entitic [facility] volume] by Hospital Automated count Erythrocyte mean 30.6 PG 27.0-35. [facility] - corpuscular 0 Good hemoglobin [facility] [Entitic mass] Hospital by Automated count Erythrocyte mean 33.8 30.7-37. [facility] - corpuscular g/dL 3 Good hemoglobin [facility] concentration Hospital [Mass/volume] by Automated count Erythrocyte 13.0 % 11.5-14. [facility] - distribution 0 Good width [Ratio] by [facility] Automated count Hospital Platelets 183 K/uL 130-400 [facility] - [#/volume] in Good Blood by [facility] Automated count Hospital Platelet mean 8.5 FL 9.2-11.8 Below low normal [facility] - volume [Entitic Good volume] in Blood [facility] by Automated Hospital count Nucleated 0.0 PER 0 [facility] - erythrocytes/100 100 WBC Good leukocytes [facility] [Ratio] in Blood [facility] Nucleated 0.00 0.0-0.01 [facility] - erythrocytes K/uL Good [#/volume] in [facility] Segmented 68 % 48.0-72. [facility] - neutrophils/100 0 Good leukocytes in [facility] Lymphocytes/100 19 % 18.0-40. [facility] - leukocytes in 0 [facility] Blood [facility] Monocytes/100 7 % 2.0-12.0 [facility] - leukocytes in [facility] Blood [facility] Eosinophils/100 5 % 0.0-7.0 [facility] - leukocytes in [facility] Blood [facility] Basophils/100 1 % 0.0-3.0 [facility] - leukocytes in [facility] Blood [facility] Immature 1 % 0-0.5 Above high normal [facility] - granulocytes/100 Good leukocytes in [facility] Automated count Segmented 5.2 K/UL 2.3-7.6 [facility] - neutrophils Good [#/volume] in [facility] Lymphocytes 1.5 K/UL 0.9-4.2 [facility] - [#/volume] in [facility] Blood [facility] Monocytes 0.6 K/UL 0.1-1.7 [facility] - [#/volume] in [facility] Blood [facility] Eosinophils 0.3 K/UL 0.0-1.0 [facility] - [#/volume] in [facility] Blood [facility] Basophils 0.0 K/UL 0.0-0.4 [facility] - [#/volume] in [facility] Blood [facility] Immature 0.0 K/UL 0.0-0.17 [facility] - granulocytes Good [#/volume] in [facility] Blood by Hospital Automated count Differential [facility] - cell count [facility] method - Blood [facility] ID Date Data Source [id number] 08/16/2019 08:50:30 PM [facility] sudden onset of difficulty breathing and rash while eating mauritian food, rashacross face and chest slightly raised, no vesicles, denies any chest pain deniesany itching at this time. Went to urgent care, recei ntaaliia benadryl 50 mg IMfrom EMS. Name Value Range Interpretation Code Description Data [facility] rce(s) Supporting Document(s ) ID Date Data Source [id number] 08/11/2019 08:03:02 AM [facility] History:Chest pain. Shortness of breath. FINDINGS:A [...] Name Value Range Interpretation Code Description [facility](s ) ID Date Data Source [id number] 08/11/2019 04:22:14 AM [facility] The history is provided by the patient a nd the spouse.11:36 PM: Maxwell Bray is a 49 y.o. male with psychiatric history ,m orbidobesity who presents to the ED c/o chest pain and shortness of breath onset 7:30 PM today while eating dinner. [facility] Patient denies cough, fever, or any other constitutional symptoms. Patientdenies a history of diabetes, hypertension, or tobacco use. states patienttakes an tidepressants regularly including Vraylar and clonazepam. No othercomplaints at this t lydia.Dr. Canas (PCP)Past Medical History:Diagnosis Date Other unknown an d unspecified cause of morbidity or mortality cardiac cath at [facility] approx 6-8 months ag o [...] e Gets together: Not on file Attends jainism service: Not on file 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 [...] room air, which indicates normaloxygenation per Mayank Queazda M D.Physical ExamVitals signs and nursing note [...] visualization of images, tracings, or sp ecimens: yesProceduresISaul Priti V, MD, reviewed the patient's past history, all ergies and homemedications as documented in the nursing chart.Labs:Recent Results (f rom the past 12 hour(s))EKG, 12 LEAD, INITIAL Collection Time: 08/10/19 10:14 PMResult Value Ref Range Ventricular Rate 102 BPM Atrial Rate 102 BPM P-R Interval 182 ms QRS Duration 88 ms Q-T Interval 334 ms QTC Calculation (Bezet) 435 ms Calculated P Kingman 55 degrees Calculated R Kingman 34 degrees Calculated T Kingman 9 degrees Diagnosis S inus tachycardiaOtherwise normal [...] Time: 08/11/19 12:01 AMResult Value Ref Range Melia level <0.20 (L) 0.6 - 1.2 MMOL/LLACTIC [...] 36N*ENCOUNTER 08/11/2019 01:42:54 AM EST [facility] - [facility] [id number] [facility] [address] [address] [phone]/ Mali mcleodMaxwell (Male) [id number] JOSE 2 ED Dispo:DISCHARGE Chief Complaint: Chest Pain, Shortne ss of Breath Diagnosis: Dyspnea, unspecified type [] Current Providers: Atte nding: Javier Quezada Primary Nurse: ELIS WilsonN: [id number] [id number] Print Grou p [phone] - Bshsi [employer] Medva MrDERN: [id number] Print Group [phone] - Bs hsi Ed Medva Age SexDOB 1970 AGE 49 SEX Male Primary Care Provider: Ritika Canas MD Phone: [phone]: (No Known Allergies)Date Reviewed: 08/10/2019Reviewed by: Chiquis Christianson CompleteED Provider Notes: No notes of this type exist for this encounter.ED Orders [id number] E KG, 12 LEAD, INITIAL [#[id number]] Priority: STAT Class: Hospital Performed Stand ing Order Information Remaining Occurrences:0/1 Interval:ONE TIME Last released:0 08/10/2019 Released orders: Maljamar Aug 10, 2019 10:17 PM by: CHIQUIS CHRISTIANSON Reason for Exam: -> CP SOB [id number] EKG, 12 LEAD, INITIAL [#[id number]] Priority: STAT Class: Hospital Performed Specimen Collected: 08/10/2019 10:14 PM Resulting Agency: [facility] Test ID: [id number] Reason for Exam: -> CP SOB Released on: 08/10/2019 10:17 PM [id number] EKG, 12 LE AD, INITIAL [#[id number]] Priority: STAT Class: Hospital Performed Standing Or mariano Information Remaining Occurrences:0/1 Interval:ONE TIME Last released:0 08/10/2019 Released orders: Maljamar Aug 10, 2019 11:51 PM by: MAYANK QUEZADA V Reason fo r Exam: -> Chest Pain [id number] EKG, 12 LEAD, INITIAL [#[id number]] Priority: STAT C lass: Hospital Performed Resulting Agency: [facility] Test ID: [id number] Reason for Exam: -> Chest P ain Released on: 08/10/2019 11:51 PM [id number] TOOLING ENGINEER - ED ONLY [#[id number]] Priority: STAT Class: Hospital Performed Standing Order Information Remaining Occurre nces:0/1 Interval:Continuous Last released:08/10/2019 Released orders : Maljamar Aug 10, 2019 11:51 PM by: MAYANK QUEZADA V Type: -> Bedside [id number] PULSE OXIMETR Y CONTINUOUS [#[id number]] Priority: STAT Class: Hospital Performed Standing Or mariano Information Remaining Occurrences:0/1 Interval:CONTINUOUS Last released :08/10/2019 Released orders: Maljamar Aug 10, 2019 11:51 PM by: MAYANK QUEZADA V [id number] PULSE OXIMETRY SPOT CHECK [#[id number]] Priority: STAT Class: Hospital Performe d Standing Order Information Remaining Occurrences:0/1 Interval:ONE TIME Last r eleased:08/10/2019 Released orders: Maljamar Aug 10, 2019 11:51 PM by: MAYANK QUEZADA V [id number] OBTAIN OLD EKG [#[id number]] Priority: Routine Class: Hospital Perfo rmed Standing Order Information Remaining Occurrences:0/1 Interval:ONE TI ME Last released:08/10/2019 Released orders: Arabella Aug 10, 2019 11:51 PM by: MAYANK QUEZADA V [id number] TOOLING ENGINEER - ED ONLY [#[id number]] Priority: STAT Class: H ospital Performed Type: -> Bedside Released on: 08/10/2019 11:51 PM [id number] PULSE OXIM ETRY CONTINUOUS [#[id number]] Priority: STAT Class: Hospital Performed Released on : 08/10/2019 11:51 PM [id number] PULSE OXIMETRY SPOT CHECK [#[id number]] Priority: STAT C lass: Hospital Performed Released on: 08/10/2019 11:51 PM [id number] OBTAIN OLD EKG [#[id number]] Priority: STAT Class: Hospital Performed Released on: 08/10/2019 11: 51 PM [id number] RT--OXYGEN CANNULA [#[id number]] Priority: STAT Class: H ospital Performed Standing Order Information Remaining Occurrences:0/1 Interval:CONTIN UOUS Last released:08/10/2019 Released orders: Arabella Aug 10, 2019 11:51 PM by: MAYANK PRADO V Comment:TITRATE UP TO 4 L / MINUTE TO MAINTAIN O2 SATS GREATER THAN OR EQUAL TO 94% LPM -> 2 Indications for O2? -> CHEST PAIN [id number] RT--OXYGEN CANNULA [#[id number]] Priority: STAT Class: Hospital Performed Comment:TITRATE UP TO 4 L / MINUTE TO MAINTAIN O2 SATS GREATER THAN OR EQUAL TO 94% LPM -> 2 Indications fo r O2? -> CHEST PAIN Released on: 08/10/2019 11:51 PM [id number] DIET NPO [#[id number]] Priority: STAT Class: Hospital Performed Standing Order Information Remaining Occurrences:0/1 Interval:DIET EFFECTIVE NOW Last released:08/10 Released orders: Arabella Aug 10, 2019 11:51 PM by: MAYANK QUEZADA V NPO options: - > With Meds [id number] DIET NPO [#[id number]] Priority: STAT Class: H ospital Performed NPO options: -> With Meds Released on: 08/10/2019 11:51 PM [id number] SALINE LOCK IV [#[id number]] Priority: STAT Class: Hospital Performed Standing O rder Information Remaining Occurrences:0/1 Interval:ONE TIME Last released:0 08/10/2019 Released orders: Sun Aug 10, 2019 11:51 PM by: MAYANK QUEZADA V [id number] SALI NE LOCK IV [#[id number]] Priority: STAT Class: Hospital Performed Relea sed on: 08/10/2019 11:51 PM [id number] METABOLIC PANEL, COMPREHENSIVE [#[id number]] Bridgette ority: STAT Class: ER Collect Standing Order Information Remaining Occurrences:0/1 In terval:ONE TIME Last released:08/10/2019 Released orders: Maljamar Aug 10, 2019 11:51 PM by: MAYANK QUEZADA V [id number] CBC WITH AUTOMATED DIFF [#[id number]] Priority: STAT Class: ER Collect Standing Order Information Remaining Occurrences:0/1 Inter haile:ONE TIME Last released:08/10/2019 Released orders: Maljamar Aug 10, 2019 11:51 PM by: MAYANK QUEZADA V [id number] TROPONIN I [#[id number]] Priority: STAT Class: ER Collect Standing Order Information Remaining Occurrences:0/1 Inter haile:ONE TIME Last released:08/10/2019 Released orders: Maljamar Aug 10, 2019 11:51 PM by: MAYANK QUEZADA V [id number] MAGNESIUM [#[id number]] Priority: STAT Class: ER Collect Standing Order Information Remaining Occurrences:0/1 Inter haile:ONE TIME Last released:08/10/2019 Released orders: Maljamar Aug 10, 2019 11:51 PM by: MAYANK QUEZADA V [id number] BNP [#[id number]] Priority: STAT Class: ER Collect Standing Order Information Remaining Occurrences:0/1 Inter haile:ONE TIME Last released:08/10/2019 Released orders: Maljamar Aug 10, 2019 11:51 PM by: MAYANK QUEZADA V [id number] D DIMER [#[id number]] Priority: STAT Class: ER Collect Standing Order Information Remaining Occurrences:0/1 Inter haile:ONE TIME Last released:08/10/2019 Released orders: Maljamar Aug 10, 2019 11:51 PM by: MAYANK QUEZADA V [id number] PROTHROMBIN TIME + INR [#[id number]] Priority: STAT Class: ER Collect Standing Order Information Remaining Occurrences:0/1 Inter haile:ONE TIME Last released:08/10/2019 Released orders: Sun Aug 10, 2019 11:51 PM by: MAYANK QUEZADA V [id number] PTT [#[id number]] Priority: STAT Class: ER Collect Specimen Source: Blood Standing Order Information Remaining Occurrences:0 /1 Interval:ONE TIME Last released:08/10/2019 Released orders: Sun Aug 10, 2019 11:51 PM by: MAYANK QUEZADA V [id number] LITHIUM [#[id number]] Pr iority: STAT Class: ER Collect Standing Order Information Remaining Occurrences:0/1 I nterval:ONE TIME Last released:08/10/2019 Released orders: Maljamar Aug 10, 2019 11:51 PM by: MAYANK QUEZADA V [id number] METABOLIC PANEL, COMPREHENSIVE [#[id number]] Bridgette ority: STAT Class: ER Collect Specimen Source: Plasma Specimen Collected: 08/11/2019 12:01 AM Resulting Agency: [facility] Test ID: MPL Released on: 08/10/2019 11:51 PM [id number] CBC WITH AUTOMATED DIFF [#[id number]] Priority: STAT Class: E R Collect Specimen Source: Whole Blood Specimen Collected: 08/11/2019 12:01 AM Resulting Agency: [facility] Test ID: CBCXA Released on: 08/10/2019 11:51 PM [id number] TROPON IN I [#[id number]] Priority: STAT Class: ER Collect Specimen Source: Gerson sma Specimen Collected: 08/11/2019 12:01 AM Resulting Agency: [facility] RY Test ID: TROIP Released on: 08/10/2019 11:51 PM [id number] MAGNESIUM [#[id number]] Priority: STAT Class: ER Collect Specimen Source: Plasma Specimen Collec hyun: 08/11/2019 12:01 AM Resulting Agency: [facility] Test ID: MGPL Re leased on: 08/10/2019 11:51 PM [id number] BNP [#[id number]] Priority : STAT Class: ER Collect Specimen Source: Plasma Specimen Collected: 08/11/2019 12:01 AM Resultin g Agency: [facility] Test ID: BNPPB Released on: 08/10/2019 11:51 PM [id number] 74 D DIMER [#[id number]] Priority: STAT Class: ER Collect Speci men Source: Plasma Specimen Collected: 08/11/2019 12:01 AM Resulting Agency: [facility] Test ID: DDIME Released on: 08/10/2019 11:51 PM [id number] PROTHROMBIN TIME + INR [#[id number]] Priority: STAT Class: ER Collect Specimen Source: Plasma Specimen Collec hyun: 08/11/2019 12:01 AM Resulting Agency: [facility] Test ID: APTHR R eleased on: 08/10/2019 11:51 PM [id number] PTT [#[id number]] Priorit y: STAT Class: ER Collect Specimen Source: Plasma Specimen Collected: 08/11/2019 12:01 AM Resultin g Agency: [facility] Test ID: APTT Released on: 08/10/2019 11:51 PM [id number] LITHIUM [#[id number]] Priority: STAT Class: ER Collect Speci men Source: Serum Specimen Collected: 08/11/2019 12:01 AM Resulting Agency: [facility] Test ID: LI Released on: 08/10/2019 11:51 PM [id number] LACTIC ACID [#[id number]] Priority: STAT Class: ER Collect Standing Order Information Remainin g Occurrences:0/1 Interval:ONE TIME Last released:08/11/2019 Released orders : Mon Aug 11, 2019 12:15 AM by: KATI WILSON [id number] LACTIC ACID [#[id number]] Priority: STAT Class: ER Collect Specimen Source: Plasma Specimen Collec hyun: 08/11/2019 12:01 AM Resulting Agency: [facility] Test ID: LAC Rel eased on: 08/11/2019 12:15 AM ASPIRIN 81 MG CHEWABLE TAB [#[id number]] Priority: STAT Class: Normal [id number] XR CHEST PORT [#[id number]] Priority: STAT Cl ass: Hospital Performed Standing Order Information Remaining Occurrences:0/1 Inter haile:ONE TIME Last released:08/10/2019 Released orders: Sun Aug 10, 2019 11:51 PM by: MAYANK QUEZADA V Reason for Exam -> Chest Pain [id number] XR CHEST PORT [#[id number]] Priority: STAT Class: Hospital Performed Resulting Agency: [facility] Test ID: [id number] Reason for Exam -> Chest Pain Released on: 08/10/2019 11:51 PM [id number] INFLUENZA A & B AG (RAPID TEST) [#[id number]] Priority: STAT Class: ER Collect Sta nding Order Information Remaining Occurrences:0/1 Interval:ONE TIME Last released: 08/10/2019 Released orders: Sun Aug 10, 2019 11:51 PM by: MAYANK QUEZADA V [id number] INFL UENZA A & B AG (RAPID TEST) [#[id number]] Priority: STAT Class: ER Collect Specimen Source : Nasal washing Specimen Collected: 08/11/2019 12:18 AM Resulting Agency: [facility] Test ID: INFLUA Released on: 08/10/2019 11:51 PM [id number] CULTURE, BLOOD [#[id number]] Priority: STAT Class: ER Collect Specimen Source: Blood Standing Order Information Remaining Occurrences:0/1 Interval:ONE TIME Last released:0 08/11/2019 Released orders: SunAug 11, 2019 12:15 AM by: KATI WILSON [id number] CULTU RE, BLOOD [#[id number]] Priority: STAT Class: ER Collect Specimen Source : Blood Standing Order Information Remaining Occurrences:0/1 Interval:ONE TI ME Last released:08/11/2019 Released orders: SunAug 11, 2019 12:15 AM by: KATI WILSON [id number] CULTURE, BLOOD [#[id number]] Priority: STAT Class: E R Collect Specimen Source: Blood Specimen Collected: 08/11/2019 12:33 AM Resulting Agency: [facility] Test ID: HBCS Released on: 08/11/2019 12:15 AM [id number] CULTUR E, BLOOD [#[id number]] Priority: STAT Class: ER Collect Specimen Source: Blo od Specimen Collected: 08/11/2019 12:43 AM Resulting Agency: [facility] Test ID: HBCS Released on: 08/11/2019 12:15 AMMaxwell Bray MR#: [id number] Acct#: [id number]* Rm: [id number]: 5' 10" Wt: 280 lb Code: Prior Iso:Diagnosis:Allergies: No Kno wn Allergies -------- Current as of: 08/11/19 0142 GI=Given -------aspirin (ASPIRIN) tablet 325 mg #[id number] Admin Amount: 1 Tab (1 x 325 mg Tab) Ordered Dose: 325 mg Route: Oral Freq: ONCE Start Date: 12/24/13 No administration times (b ack 96 hours, ahead 96 hours). ------diphenhydrAMINE (BENADRYL) capsule 50 mg #[id number] Admin Amount: 1 Cap (1 x 50 mg Cap) Ordered Dose: [address] [place]: Oral Freq: NOW Start Date: 12/24/13 No administration times (back 96 hours, ahead 96 hours). ------diazepam (VALIUM) tablet 5 mg #[id number] Admin Amount: 1 Tab (1 x 5 mg Tab) Ordered Dose: 5 mg Route: Oral Freq: ONCE Start Date: 12/24/13 No administration times (back 96 hours, ahead 96 hours). ------lidocaine (XYLOCAINE) 10 mg/mL (1 %) injection 1-3 0 mL #[id number] Admin Amount: 1-30 mL Ordered Dose: 1-30 mL Route: Int raDERMal Freq: ONCE Start Date: 12/24/13 No administration times (back 96 hours, ahead 96 hours). ------heparin (PF) 2 units/ml in NS infusion 2,000 Units #[id number] Admin Amount: 1,000 mL = 2,000 Units of 2 Units/mL Ordered Dose: 1,000 mL Route: Irrigation Freq: ONCE Start Date: 12/24/13 No administration times (back 96 hours, ahead 96 hours). ------heparinized saline 2 units/mL infusion 1,000 Units #[id number] Admin Amount: 500 mL = 1,000 Units of 2 Units/mL Ordered Dose: 500 m L Route: IntraarTERial Freq: ONCE Start Date: 12/24/13 No admini stration times (back 96 hours, ahead 96 hours). ------0.9% sodium chloride infusion #[id number] Ordered Dose: 75 mL/hr Route: IntraVENous Freq: CONTINUOUS Start Date: 12/24/13 Rate: 75 mL/hr Duration: No administration ti mes (back 96 hours, ahead 96 hours). ------ioversol (OPTIRAY) 320 mg iodine/mL contrast inje ction 1-100 mL #[id number] Admin Amount: 1-100 mL Ordered Dose: 1-[address] [place]: IntraVENous Freq: RAD ONCE Start Date: 12/24/13 No administration times (back 96 hours, ahead 96 hours).Maxwell Brya MR#: [id number] * Rm: [id number] Ht: 5' 10" Wt: 280 lb Code: Prior Iso:Diagnosis:Allergies: No Known Allergies -------- Current as of: 08/11/19 0142 GI=Given -------gadobutrol (GADAVIST) contrast solution 1-10 mL #[id number] Admin Amount: 1-10 mL Ordered Dose: 1-10 mL Route: Int raVENous Freq: RAD ONCE Start Date: 01/13/14 No administration times (back 96 hours, ahead 96 hours). ------sodium chloride (NS) flush 5-10 mL #[id number] Admin Amount: 5-10 mL Ordered Dose: 5-10 mL Route: IntraVENo us Freq: RAD ONCE Start Date: 01/13/14 No administration times (back 96 hours, ahe ad 96 hours). ------sodium chloride (NS) 0.9 % flush #[id number] Ordered Dose: Route: Freq: Start Date: 01/13/14 No administration times (back 96 hours, ahead 96 hours). ------morphine injection 2 mg #[id number] Admin Amount: 1 mL = 2 mg of 2 mg/mL Ordered Dose: 2 mg Route: IntraVENous Freq: NOW Start Date: 03/13/15 No administration t imes (back 96 hours, ahead 96 hours). ------influenza vaccine (4 yr+)(PF) (FLUCELVAX Q UAD) injection 0.5*#[id number] Admin Amount: 0.5 mL Ordered Dose: 0.5 mL Route: Int raMUSCular Freq: PRIOR TO DISCHARGE Start Date: 03/30/16 No administration times (back 9 6 hours, ahead 96 hours). ------oxyCODONE-acetam inophen (PERCOCET) 5-325 mg per tablet 1 Tab #[id number] Admin Amount: 1 Tab Ordered Dose: 1 Tab Route: Oral Freq: NOW Start Date: 09/07/17 No administration times (back 96 hours, [facility] ad 96 hours). ------barium sulfate (READICAT) 2.1 % (w/v), 2.0 % (w/w) oral suspension 9*#[id number] Admin Amount: 900 mL Ordered Dose: 900 mL Route: Oral Delgado q: RAD ONCE Start Date: 10/15/17 No administration times (back 96 hours, e ad 96 hours). ------iopamidol (ISOVUE 300) 61 % contrast injection 100 mL #[id number] Admin Amount: 100 mL Ordered Dose: 100 mL Route: Int raVENous Freq: RAD ONCE Start Date: 10/15/17 No administration times (back 96 hours, ahead 96 hours).Maxwell Bray MR#: [id number] * Rm: [id number]: 5' 1 0" Wt: 280 lb Code: Prior Iso:Diagnosis:Allergies: No Known Allergies -------- Current as of: 08/11/19141 GI=Given -------risperiDONE (RisperDAL m-tabs) disintegrating tablet 1 mg #[id number] Admin Amount: 1 Tab (1 x 1 mg Tab) Ordered Dose: 1 mg Route: Oral Freq: ONCE Start Date: 12/24/17 No administration times (back 96 hours, ahead 96 hours). ------ALPRAZolam (XANAX) tablet 2 mg #[id number] Admin Amount: 4 Tab (4 x 0.5 mg Tab) Ordered Dose: 2 mg Route: Oral Freq: NOW Start Date: 12/24/17 No administration times (back 96 hours, ahead 96 hours). ------lamoTRIgine (LaMICtal) tablet 100 mg #[id number] Admin Amount: 1 Tab (1 x 100 mg Tab) Ordered Dose: 100 mg Route: Oral Freq: ONCE Start Date: 12/24/17 No administration times (back 96 hours, ahead 96 hours). ------OLANZapine (ZyPREXA zydis) disintegrating tablet 5 mg #[id number] Admin Amount: 1 Tab (1 x 5 mg Tab) Ordered Dose: 5 mg Route: Oral Freq: ONCE Start Date: 12/25/17 No administration times (back 96 hours, ahead 96 hours). ------LORazepam (ATIVAN) tablet 2 mg #[id number] Admin Amount: 4 Tab (4 x 0.5 mg Tab) Ordered Dose: 2 mg Route: Oral Freq: NOW Start Date: 12/25/17 No administration times (back 96 hours, ahead 96 hours). ------LORazepam (ATIVAN) injection 1 mg #[id number] Admin Amount: 0.5 mL = 1 mg of 2 mg/mL Ordered Dose: 1 mg Route: IntraVENous Freq: NOW Start Date: 12/25/17 No administration ti mes (back 96 hours, ahead 96 hours). ------barium sulfate (EZ PAQUE) 96 % (w/w) contrast suspensio n 176 g #[id number] Admin Amount: 176 g Ordered Dose: 176 g Route: Oral Delgado q: RAD ONCE Start Date: 08/02/18 No administration times (back 96 hours, e ad 96 hours). ------barium sulfate (EZ PAQUE) 96 % (w/w) contrast suspensio n 176 g #[id number] Admin Amount: 176 g Ordered Dose: 176 g Route: Oral Delgado q: RAD ONCE Start Date: 08/02/18 No administration times (back 96 hours, e ad 96 hours).Maxwell Bray MR#: [id number] * Rm: [id number]: 5' 10" Wt: 280 lb Code: Prior Iso:Diagnosis:Allergies: No Known Allergies -------- Current as of: 08/11/19 0142 GI=Given -------aspirin chewable tablet 162 mg #[id number] Admin Amount: 2 Tab (2 x 81 [...] in 1 dayComments:Contact Info:[address] [id number]-mq With:Detail s:Comments:As needed, If symptoms worsenContact Info: Name Value Range Interpretation Code Description Data Melani rce(s) Supporting Document(s ) ID Date Data Source [id number] 08/11/2019 01:40:37 AM EST [facility] I have reviewed discharge instructions w ith the patient and spouse. The patientand spouse verbalized understanding.\\ Name Value Range Interpretation Code Description Data Melani rce(s) Supporting Document(s ) ID Date Data Source [id number] 08/16/2019 06:35:29 AM EST [facility] Name Value Range Interpretation Description Data Sup porting Code Source(s) Document(s ) Service comment [facility] Bacteria [facility] by Culture ID Date Data Source [id number] 08/16/2019 06:35:28 AM EST [facility] Name Value Range Interpretation Description Data Sup porting Code Source(s) Document(s ) Service comment [facility] Bacteria [facility] by Culture ID Date Data Source [id number] 08/11/2019 12:56:01 AM EST [facility] Name Value Range Interpretation Description Data Sup porting Code Source(s) Document(s ) Influenza virus NEG [facility] A Ag [Presence] [facility] in [facility] by Immunoassay Influenza virus NEG [facility] - Good B Ag [Presence] [facility] in [facility] by Immunoassay IMMUNOCHROMATOGRAPHIC MEMBRANE ASSAYResu lt: Negative for Influenza A and BNote: A negative result does not exclude an infl uenza virus infection, including H1N1. If more conclusive testing is desired, foll ow-up confirmatory testing is warranted. Specimen source [Identifier] of Unspecified [facility] specimen ID Date Data Source [id number] 08/11/2019 01:35:58 AM EST [facility] Name Value Range Interpretation Description Data Sup porting Code Source(s) Document(s ) Prothrombin 9.6 sec 9.4-11.1 [facility] - [facility] time (PT) [facility] INR in 0.9 0.8-1.2 [facility] - Good Platelet poor [facility] plasma by Hospital Coagulation assay ID Date Data Source [id number] 08/11/2019 01:35:58 AM EST [facility] Name Value Range Interpretation Description Data Sup porting Code Source(s) Document(s ) aPTT in 23.1 SEC 21.0-28. [facility] Platelet poor 0 [facility] plasma by Hospital Coagulation assay Therapeutic Range = 42.0-60.0 secs ID Date Data Source [id number] 08/11/2019 01:30:36 AM EST [facility] Name Value Range Interpretation Description Data Sup porting Code Source(s) Document(s ) Natriuretic 19 pg/mL 0-100 [facility] peptide B [place] [Mass/volume] [facility] in Serum or Plasma ID Date Data Source [id number] 08/11/2019 01:25:10 AM EST [facility] Name Value Range Interpretation Code Description Data Supporting Source(s) Document(s ) Melia 0.6-1.2 Below low normal [facility] [Moles/volum [facility] e] in Serum Hospital or Plasma ID Date Data Source [id number] 08/11/2019 01:20:56 AM EST [facility] Value Range Interpretation Code Description Data Melani rce(s) Supporting Document(s ) [facility]in <500 [facility] D-dimer FEU [place] [Mass/volume] [facility] in Platelet poor plasma (NOTE)Combination of a D-Dimer result wi thin the reference range and a lowclinical pretest probability has good negative pr edictive value fordeep venous thrombosis.If results are utilized for VTE evaluation, <500 ng/ml is consideredto be negative. ID Date Data Source [id number] 08/11/2019 01:09:42 AM EST [facility] Value Range Interpretation Description Data Sup porting Code Source(s) Document(s ) Lactate 1.7 0.4-2.0 [facility] [Moles/volu MMOL/L [facility]] in Hospital Serum or Plasma ID Date Data Source [id number] 08/11/2019 01:09:42 [facility] Interpretation Description Data Sup porting Code Source(s) Document(s ) Troponin 0.00-0.05 [facility] I.cardiac [place] [Mass/volume Hospital ] in Serum or Plasma [...] to 1.50 ng/mL ID Date Data Source [id number] 08/11/2019 01:09:42 AM EST [facility] Name Value Range Interpretation Description Data Sup porting Code Source(s) Document(s ) Sodium 140 136-145 [facility] [Moles/volume] mmol/L [facility] in Serum or Hospital Plasma Potassium 3.9 3.5-5.1 [facility] [Moles/volume] mmol/L [facility] in Serum or Hospital Plasma Chloride 113 98-107 Above high normal [facility] - Good [Moles/volume] mmol/L [facility] in Serum or Hospital Plasma Carbon 21 21-32 [facility] - [facility] dioxide, total mmol/L [facility] [Moles/volume] Hospital in Serum or Plasma Anion gap in 10 10-20 [facility] - Good Serum or mmol/L [facility] Plasma Hospital Glucose 90 mg/dL 74-106 [facility] [Mass/volume] [facility] in Serum or Hospital Plasma Urea nitrogen 18 mg/dL 7-18 [facility] [Mass/volume] [facility] in Serum or Hospital Plasma Creatinine 0.78 0.70-1.3 [facility] [Mass/volume] mg/dL 0 [facility] in Serum or Hospital Plasma Glomerular >60 [facility] filtration [facility] rate/1.73 sq M Hospital predicted among blacks [Volume Rate/Area] in Serum or Plasma by Creatinine-bas ed formula (MDRD) Glomerular >60 [facility] - [facility] filtration [facility] rate/1.73 sq M Hospital predicted among non-blacks [Volume Rate/Area] in Serum or Plasma by Creatinine-bas ed formula (MDRD) (NOTE)Estimated GFR is calculated using the Modification of Diet in RenalDisease (MDRD) Study equation, reported for both Americans(GFRAA) and non- Americans (GFRNA), and normalized to 1.7 6a1wutp surface area. The physician must decide which [...] normal [facility] - Good Serum or Plasma [facility] ital Bilirubin.total 0.5 mg/dL 0.2-1.0 [facility] - Good [Mass/volume] in Serum or [facility] Plasma Alanine aminotransferase 29 U/L 13-61 [facility] - Good [Enzymatic activity/volume] [facility] in Serum or Plasma Aspartate aminotransferase 18 U/L 15-37 BSC HS - Good [Enzymatic activity/volume] [facility] in Serum or Plasma by With P-5'-P Alkaline phosphatase 98 U/L 45-117 [facility] - G ood [Enzymatic activity/volume] [facility] in Serum or Plasma Protein [Mass/volume] in 6.7 g/dL 6.4-8.2 [facility] - Good Serum or Plasma [facility] ital Albumin [Mass/volume] in 3.4 g/dL 3.5-4.7 Below low normal [facility] - Good Serum or Plasma by [facility] ospital Bromocresol purple (BCP) dye binding method Globulin [Mass/volume] in 3.3 g/dL 1.7-4.7 [facility] - Good Serum by calculation [facility] Albumin/Globulin [Mass 1.1 0.7-2.8 [facility] - Good Ratio] in Serum or Plasma [facility] ID Date Data Source [id number] 08/11/2019 01:09:42 AM EST [facility] - Good [facility] Name Value Range Interpretation Description Data Sup porting Code Source(s) Document(s ) Magnesium 2.1 mg/dL 1.6-2.6 [facility] - Good [Mass/volume] [facility] in Serum or Hospital Plasma ID Date Data Source [id number] 08/11/2019 01:01:18 AM EST [facility] - [facility] Name Value Range Interpretation Description Data Sup porting Code Source(s) Document(s ) Leukocytes 7.7 K/uL 4.8-10.6 [facility] - [#/volume] in Good Blood by [facility] Automated count Hospital Erythrocytes 4.93 4.70-6.0 [facility] - [#/volume] in M/uL 0 Good Blood by [facility] Hemoglobin 14.9 14.0-18. [facility] - [Mass/volume] in g/dL 0 [facility] Blood [facility] Hematocrit 44.4 % 42.0-52. [facility] - [Volume 0 Good Fraction] of [facility] Blood by Hospital Automated count Erythrocyte mean 90.1 FL 81.0-94. [facility] - corpuscular 0 Good volume [Entitic [facility] volume] by Hospital Automated count Erythrocyte mean 30.2 PG 27.0-35. [facility] - corpuscular 0 Good hemoglobin [facility] [Entitic mass] [facility] by Automated count Erythrocyte mean 33.6 30.7-37. [facility] - corpuscular g/dL 3 Good hemoglobin [facility] [Mass/volume] by Automated count Erythrocyte 12.5 % 11.5-14. [facility] - distribution 0 Good width [Ratio] by [facility] Platelets 189 K/uL 130-400 [facility] - [#/volume] in Good Blood by [facility] Platelet mean 9.0 FL 9.2-11.8 Below low normal [facility] - volume [Entitic Good volume] in Blood [facility] by Automated Hospital count Nucleated 0.0 PER 0 [facility] - erythrocytes/100 100 WBC Good leukocytes [facility] [Ratio] in Blood Hospital Nucleated 0.00 0.0-0.01 [facility] - erythrocytes K/uL Good [#/volume] in [facility] Segmented 59 % 48.0-72. [facility] - neutrophils/100 0 Good leukocytes in [facility] Lymphocytes/100 29 % 18.0-40. [facility] - leukocytes in 0 Good Blood [facility] Monocytes/100 7 % 2.0-12.0 [facility] - leukocytes in Good Blood [facility] Eosinophils/100 5 % 0.0-7.0 [facility] - leukocytes in [facility] Basophils/100 1 % 0.0-3.0 [facility] - leukocytes in [facility] Immature 0 % 0-0.5 [facility] - granulocytes/100 Good leukocytes in [facility] by Hospital Automated count Segmented 4.6 K/UL 2.3-7.6 [facility] - neutrophils Good [#/volume] in [facility] Lymphocytes 2.2 K/UL 0.9-4.2 [facility] - [#/volume] in [facility] Monocytes 0.5 K/UL 0.1-1.7 [facility] - [#/volume] in [facility] Eosinophils 0.4 K/UL 0.0-1.0 [facility] - [#/volume] in [facility] Basophils 0.1 K/UL 0.0-0.4 [facility] - [#/volume] in [facility] Immature 0.0 K/UL 0.0-0.17 [facility] - granulocytes Good [#/volume] in [facility] by Hospital Automated count Differential [facility] - cell count Good method [facility] Procedure Social History Code Duration Value Status Description Data Source(s ) Alcohol intake 01/08/2020 Current completed Current [place] [facility] 12:00:00 AM EDT non-drinker non-drinker of [place] alcohol (finding) [facility] (finding) Tobacco use and 01/08/2020 Never used completed Never used [facility] exposure 12:00:00 AM EDT [employer] [facility] Smoking 01/08/2020 Never smoker completed Never smoker [place] [facility] 12:00:00 AM EDT [facility] Alcohol intake 12/25/2019 Current completed Current [place] [facility] 12:00:00 AM EDT non-drinker non-drinker of [place] alcohol (finding) [facility] (finding) Tobacco use and 12/25/2019 Never used completed Never used [facility] exposure 12:00:00 AM EDT [employer] [facility] Smoking 12/25/2019 Never smoker completed Never smoker [place] [facility] 12:00:00 AM EDT [facility] Alcohol intake 12/12/2019 Current completed Current [place] 12:00:00 AM EDT non-drinker non-drinker of [employer] of alcohol alcohol (finding) [facility] (finding) Smoking 12/12/2019 Never smoker completed Never smoker [place] [facility] 12:00:00 AM EDT [facility] Alcohol intake 12/05/2019 Current completed Current [place] 12:00:00 AM EDT non-drinker non-drinker of [employer] alcohol alcohol (finding) [facility] (finding) Tobacco use and 12/05/2019 Never used completed Never used [facility] exposure 12:00:00 AM EDT [facility] Smoking 12/05/2019 Never smoker completed Never smoker [place] [facility] 12:00:00 AM EDT [facility] Alcohol intake 12/01/2019 Current completed Current [place] 12:00:00 AM EDT non-drinker non-drinker of [employer] alcohol alcohol (finding) [facility] (finding) Smoking 12/01/2019 Never smoker completed Never smoker [place] [facility] 12:00:00 AM EDT [employer] [facility] Alcohol intake 11/14/2019 Current completed Current [place] [facility] 12:00:00 AM EDT non-drinker non-drinker of [employer] of alcohol alcohol (finding) [facility] (finding) Smoking 11/14/2019 Never smoker completed Never smoker [place] [facility] 12:00:00 AM EDT [employer] [facility] Alcohol intake 11/10/2019 Current completed Current [place] [facility] 12:00:00 AM EDT non-drinker non-drinker of [employer] of alcohol alcohol (finding) [facility] (finding) Smoking 11/10/2019 Never smoker completed Never smoker [place] [facility] 12:00:00 AM EDT [facility] Alcohol intake 09/06/2019 Current completed Current [place] 12:00:00 AM EDT non-drinker non-drinker of [employer] alcohol alcohol (finding) [facility] (finding) Smoking 09/06/2019 Never smoker completed Never smoker [place] [facility] 12:00:00 AM EDT [facility] Alcohol intake 08/16/2019 Current completed Current [place] 12:00:00 AM EST non-drinker non-drinker of [employer] of alcohol alcohol (finding) [facility] (finding) Smoking 08/16/2019 Never smoker completed Never smoker [place] [facility] 12:00:00 AM EST [facility] Alcohol intake 08/10/2019 Current completed Current [place] 12:00:00 AM EST non-drinker non-drinker of [employer] of alcohol alcohol (finding) [facility] (finding) Smoking 08/10/2019 Never smoker completed Never smoker [place] [facility] 12:00:00 AM EST [facility] Alcohol intake 07/21/2019 Current completed Current [place] [facility] 12:00:00 AM EST non-drinker non-drinker of [employer] alcohol alcohol (finding) [facility] (finding) Smoking 07/21/2019 Never smoker completed Never smoker [place] [facility] 12:00:00 AM EST [facility] Vital Signs ID Date Data Source UNK Name Value Range Interpretation Code Description Data Source(s) Oxygen saturation 98 % 98 % [place] [facility] ours in Arterial blood [employer] by Pulse oxim[employer] [facility] Body mass index 48.95 kg/m2 48.95 kg/m2 [place] ours (BMI) [Ratio] [employer] [facility] Body weight 136.533 kg 136.533 kg Bon [employer] [facility] Body height 167 cm 167 cm [facility] [employer] Respiratory rate 12 /min 12 /min [facility] urs [employer] Body temperature 36.56 May 36.56 May [facility] urs [employer] [facility] Heart rate 102 /min 102 /min [facility] Inc Diastolic blood 60 mm[Hg] 60 mm[Hg] [facility] pressure [employer] Systolic blood 100 mm[Hg] 100 mm[Hg] [place] [facility] pressure [employer] Diastolic blood 80 mm[Hg] 80 mm[Hg] [facility] pressure [employer] Systolic blood 122 mm[Hg] 122 mm[Hg] [place] [facility] pressure [employer] Respiratory rate 20 /min 20 /min [facility] [employer] [facility] [employer] Heart rate 70 /min 70 /min [facility] Diastolic blood 70 mm[Hg] 70 mm[Hg] [facility] pressure [employer] [facility] [employer] Systolic blood 124 mm[Hg] 124 mm[Hg] [place] [facility] pressure [employer] [facility] Respiratory rate 18 /min 18 /min [facility] [employer] [facility] [employer] Body temperature 36.56 May 36.56 May [facility] [employer] [facility] [employer] Heart rate 88 /min 88 /min [facility] [employer] [facility] [employer] Diastolic blood 86 mm[Hg] 86 mm[Hg] [facility] pressure [employer] [facility] [employer] Systolic blood 110 mm[Hg] 110 mm[Hg] [place] [facility] pressure [employer] Oxygen saturation 98 % 98 % [facility] in Arterial blood [employer] by [employer]ulse oximetry [facility] Body mass index 47.98 kg/m2 47.98 kg/m2 [facility] (BMI) [Ratio] [facility] Body weight 133.811 kg 133.811 kg [facility] [employer] Body height 167 cm 167 cm [facility] [employer] [facility] Respiratory rate 12 /min 12 /min [facility] [employer] [facility] [employer] Body temperature 36.67 May 36.67 May [facility] [employer] [facility] [employer] Heart rate 100 /min 100 /min [facility] [employer] [facility] Diastolic blood 66 mm[Hg] 66 mm[Hg] [facility] pressure [employer] [facility] [employer] Systolic blood 102 mm[Hg] 102 mm[Hg] [place] [facility] pressure [employer] [facility] Respiratory rate 20 /min 20 /min [facility] [employer] [facility] [employer] Heart rate 70 /min 70 /min [facility] [employer] [facility] Diastolic blood 68 mm[Hg] 68 mm[Hg] [facility] pressure [facility] Systolic blood 120 mm[Hg] 120 mm[Hg] [place] [facility] pressure [facility] Respiratory rate 18 /min 18 /min [facility] [employer] [facility] [employer] Heart rate 68 /min 68 /min [facility] [employer] [facility] Diastolic blood 68 mm[Hg] 68 mm[Hg] [facility] pressure [facility] Systolic blood 112 mm[Hg] 112 mm[Hg] [place] [facility] pressure [employer] [facility] Respiratory rate 20 /min 20 /min [facility] [employer] [facility] Body temperature 36.56 May 36.56 May [facility] [employer] [facility] Heart rate 92 /min 92 /min [facility] [employer] [facility] Diastolic blood 70 mm[Hg] 70 mm[Hg] [facility] pressure [facility] Systolic blood 110 mm[Hg] 110 mm[Hg] [place] [facility] pressure [employer] [facility] Respiratory rate 20 /min 20 /min [facility] [employer] [facility] Heart rate 68 /min 68 /min [facility] [employer] [facility] Diastolic blood 72 mm[Hg] 72 mm[Hg] [facility] pressure [facility] Systolic blood 112 mm[Hg] 112 mm[Hg] [place] [facility] pressure [employer] [facility] Respiratory rate 20 /min 20 /min [facility] [employer] [facility] Heart rate 82 /min 82 /min Bon SecNovImmune [facility] Inc Diastolic blood 66 mm[Hg] 66 mm[Hg] [facility] pressure [employer] [facility] Systolic blood 110 mm[Hg] 110 mm[Hg] [place] [facility] pressure [employer] [facility] Respiratory rate 14 /min 14 /min [facility] [employer] [facility] Body temperature 36.89 May 36.89 May [facility] [employer] [facility] Heart rate 72 /min 72 /min [facility] [employer] [facility] Diastolic blood 74 mm[Hg] 74 mm[Hg] [facility] pressure [facility] Systolic blood 128 mm[Hg] 128 mm[Hg] [place] [facility] pressure [employer] [facility] Respiratory rate 20 /min 20 /min [facility] [employer] [facility] Heart rate 68 /min 68 /min [facility] [employer] [facility] Diastolic blood 64 mm[Hg] 64 mm[Hg] [facility] pressure [facility] Systolic blood 108 mm[Hg] 108 mm[Hg] [place] [facility] pressure [facility] Respiratory rate 18 /min 18 /min [facility] [employer] [facility] Heart rate 80 /min 80 /min [facility] [employer] [facility] Diastolic blood 70 mm[Hg] 70 mm[Hg] [facility] pressure [facility] Systolic blood 98 mm[Hg] 98 mm[Hg] [place] [facility] pressure [employer] [facility] Respiratory rate 20 /min 20 /min [facility] [employer] [facility] Body temperature 36.56 May 36.56 May [facility] [employer] [facility] Heart rate 78 /min 78 /min Bon SecNovImmune [facility] Inc Diastolic blood 60 mm[Hg] 60 mm[Hg] [facility] pressure [employer] [facility] Systolic blood 110 mm[Hg] 110 mm[Hg] [place] pressure [employer] [facility] Body mass index 48.95 kg/m2 48.95 kg/m2 [facility] (BMI) [Ratio] [employer] Body weight 136.533 kg 136.533 kg Bon [employer] [facility] Inc Respiratory rate 18 /min 18 /min [facility] [employer] [facility] Body temperature 36.56 May 36.56 May [facility] [employer] [facility] [employer] Heart rate 80 /min 80 /min [employer] Diastolic blood 70 mm[Hg] 70 mm[Hg] [facility] pressure [employer] [facility] Systolic blood 128 mm[Hg] 128 mm[Hg] [place] [facility] pressure [employer] [facility] [employer] Oxygen saturation 98 % 98 % [facility] in Arterial blood [facility] by Pulse oximetry [facility] Body mass index 48.95 kg/m2 48.95 kg/m2 [facility] (BMI) [Ratio] [employer] Body weight 136.533 kg 136.533 kg [employer] Inc Body height 167 cm 167 cm [employer] Respiratory rate 14 /min 14 /min [facility] [employer] [facility] [employer] Body temperature 36.44 May 36.44 May [facility] [employer] [facility] [employer] Heart rate 98 /min 98 /min Bon SecNovImmune [facility] Inc Diastolic blood 60 mm[Hg] 60 mm[Hg] [facility] pressure [employer] [facility] Systolic blood 110 mm[Hg] 110 mm[Hg] [place] [facility] pressure [employer] [facility] [employer] Oxygen saturation 96 % 96 % [facility] in Arterial blood [facility] by Pulse oximetry System Inc Respiratory rate 18 /min 18 /min [facility] [employer] [facility] [employer] Body temperature 36.72 May 36.72 May [facility] [employer] [facility] [employer] Heart rate 80 /min 80 /min Bon [employer] System Inc Diastolic blood 88 mm[Hg] 88 mm[Hg] [facility] pressure [facility] Systolic blood 128 mm[Hg] 128 mm[Hg] [place] pressure [employer] Body mass index 48.97 kg/m2 48.97 kg/m2 [facility] (BMI) [Ratio] [employer] Body weight 136.578 kg 136.578 kg [facility] [employer] Body height 167 cm 167 cm [employer] Oxygen saturation 98 % 98 % [facility] in Arterial blood Bela [employer] by Pulse oximetry System Inc Body mass index 48.30 kg/m2 48.30 kg/m2 [facility] (BMI) [Ratio] [employer] Body weight 134.718 kg 134.718 kg [employer] Inc Body height 167 cm 167 cm [employer] Respiratory rate 14 /min 14 /min [facility] Inc Body temperature 37.33 May 37.33 May [facility] Inc Heart rate 100 /min 100 /min [employer] Diastolic blood 68 mm[Hg] 68 mm[Hg] [facility] pressure [employer] Systolic blood 118 mm[Hg] 118 mm[Hg] [place] [facility] pressure [employer] Oxygen saturation 98 % 98 % [facility] in Arterial blood Bela [employer] by Pulse oximetry System Inc Body mass index 47.49 kg/m2 47.49 kg/m2 [facility] (BMI) [Ratio] [employer] Body weight 132.45 kg 132.45 kg [employer] Body height 167 cm 167 cm [employer] Respiratory rate 12 /min 12 /min [facility] [employer] [facility] Body temperature 36.44 May 36.44 May [facility] [employer] [facility] Heart rate 88 /min 88 /min [employer] Diastolic blood 70 mm[Hg] 70 mm[Hg] [facility] pressure [employer] Systolic blood 102 mm[Hg] 102 mm[Hg] [place] pressure [employer] [facility] Oxygen saturation 92 % 92 % [facility] in Arterial blood Bela [employer] by Pulse oximetry System Inc Body mass index 45.86 kg/m2 45.86 kg/m2 [facility] (BMI) [Ratio] [employer] Body weight 133.811 kg 133.811 kg [facility] [employer] Body height 170.8 cm 170.8 cm [employer] Respiratory rate 12 /min 12 /min [facility] [employer] Body temperature 36.67 May 36.67 May [facility] [employer] Heart rate 88 /min 88 /min [employer] Diastolic blood 80 mm[Hg] 80 mm[Hg] [facility] pressure [employer] Systolic blood 120 mm[Hg] 120 mm[Hg] [place] [facility] pressure [employer] Oxygen saturation 95 % 95 % [facility] in Arterial blood [employer] by Pulse oximetry [facility] Inc Respiratory rate 18 /min 18 /min [facility] [employer] Body temperature 36.44 May 36.44 May [facility] [employer] Heart rate 100 /min 100 /min [employer] Diastolic blood 80 mm[Hg] 80 mm[Hg] [facility] pressure [employer] Systolic blood 123 mm[Hg] 123 mm[Hg] [place] pressure [employer] Body mass index 46.99 kg/m2 46.99 kg/m2 [facility] (BMI) [Ratio] [employer] Body weight 136.079 kg 136.079 kg [employer] Body height 170.2 cm 170.2 cm [employer] Oxygen saturation 96 % 96 % [facility] in Arterial blood Bela [employer] by Pulse oximetry System Inc Body mass index 45.55 kg/m2 45.55 kg/m2 [facility] (BMI) [Ratio] [employer] Body weight 132.904 kg 132.904 kg [employer] Body height 170.8 cm 170.8 cm [employer] Respiratory rate 14 /min 14 /min [facility] [employer] Body temperature 35.89 May 35.89 May [facility] [employer] Heart rate 96 /min 96 /min [employer] Diastolic blood 78 mm[Hg] 78 mm[Hg] [facility] pressure [employer] Systolic blood 116 mm[Hg] 116 mm[Hg] [place] pressure [employer] Oxygen saturation 92 % 92 % [facility] in Arterial blood Bela [employer] by Pulse oximetry [facility] Inc Respiratory rate 15 /min 15 /min [facility] [employer] [facility] Heart rate 96 /min 96 /min [employer] Diastolic blood 86 mm[Hg] 86 mm[Hg] [facility] pressure [employer] Systolic blood 121 mm[Hg] 121 mm[Hg] [place] pressure [employer] Body mass index 40.18 kg/m2 40.18 kg/m2 [facility] (BMI) [Ratio] [employer] [facility] Body weight 127.007 kg 127.007 kg [employer] Body height 177.8 cm 177.8 cm [employer] [facility] Body temperature 36.72 May 36.72 May [facility] [employer] Body temperature 36.33 May 36.33 May [facility] [employer] Oxygen saturation 96 % 96 % [facility] in Arterial blood Bela [employer] by Pulse oximetry [facility] Inc Respiratory rate 21 /min 21 /min [facility] [employer] Heart rate 85 /min 85 /min [employer] Diastolic blood 88 mm[Hg] 88 mm[Hg] [facility] pressure [employer] Systolic blood 155 mm[Hg] 155 mm[Hg] [place] pressure [employer] Body mass index 40.18 kg/m2 40.18 kg/m2 [facility] (BMI) [Ratio] [employer] Body weight 127.007 kg 127.007 kg [employer] Body height 177.8 cm 177.8 cm [employer] Oxygen saturation 98 % 98 % [facility] in [facility] Body mass index 44.66 kg/m2 44.66 kg/m2 [facility] (BMI) [Ratio] [employer] [facility] Body weight 128.368 kg 128.368 kg [employer] Body height 169.5 cm 169.5 cm [employer] Inc Respiratory rate 12 /min 12 /min [facility] Inc Body temperature 36.28 May 36.28 May [facility] Sec[facility] [place] [employer] Heart rate 68 /min 68 /min [facility] [employer] [facility] Diastolic blood 80 mm[Hg] 80 mm[Hg] [place] Batesou rs pressure [employer] Systolic blood 122 mm[Hg] 122 mm[Hg] [place] pressure [employer] Patient Treatment Plan of Care Planned Activity Planned Date Details Description Data Source (s) Propranolol Hydrochloride 01/08/2020 Francisco Javier [facility] 10 MG Oral Tablet 12:00:00 AM EDT [facility] Clonazepam 0.5 MG Oral 12/25/2019 [facility] Tablet 12:00:00 AM EDT [employer] Ibuprofen 200 MG Oral 12/22/2019 [facility] Tablet 12:00:00 AM EDT [employer] olanzapine 5 MG Oral Tablet 12/09/2019 [facility] 09:00:00 AM EDT [employer] Olmesartan medoxomil 20 MG 12/09/2019 [facility] Oral Tablet 12:00:00 AM EDT [facility] olanzapine 5 MG Oral Tablet 12/09/2019 [facility] 12:00:00 AM EDT [employer] Losartan Potassium 50 MG 12/09/2019 [facility] Oral Tablet 12:00:00 AM EDT [employer] Clonazepam 0.5 MG Oral 12/08/2019 [facility] Tablet 12:00:00 AM EDT [facility] Risperidone 2 MG Oral 12/04/2019 [facility] Tablet 12:00:00 AM EDT [facility] Melia Carbonate 300 MG 11/30/2019 [facility] Oral Capsule 12:00:00 AM EDT [facility] Amitriptyline Hydrochloride 11/12/2019 [facility] 100 MG Oral Tablet 12:00:00 AM EDT [facility] Docusate Sodium 100 MG Oral 11/04/2019 [facility] Capsule 12:00:00 AM EDT [employer] [facility] Bisacodyl 5 MG Delayed 11/03/2019 [facility] Release Oral [facility] Bisacodyl 5 MG Delayed 10/31/2019 [facility] Release Oral Tablet 01:50:17 PM EDT [facility] Acetaminophen 325 MG Oral 10/29/2019 Francisco Javier [facility] Tablet 02:44:40 PM EDT [employer] sodium chloride (NS) flush 10/29/2019 [facility] 5-40 mL 11:01:53 AM ED [employer] 24 HR Bupropion 10/17/2019 [facility] Hydrochloride 150 MG 12:00:00 AM ED [employer] [facility] Extended Release Oral Tablet 24 HR Bupropion 10/17/2019 [facility] Hydrochloride 300 MG 12:00:00 AM ED [employer] [facility] Extended Release Oral Tablet Vraylar 3 mg capsule 09/03/2019 [facility]a 12:00:00 AM [facility] [employer] Amitriptyline Hydrochloride 08/20/2019 [facility] 150 MG Oral Tablet 12:00:00 AM [employer] [facility] Melia Carbonate 150 MG 08/16/2019 [facility] Oral Capsule 12:00:00 AM [facility] [employer] Prednisone 50 MG Oral 08/16/2019 [facility] Tablet 12:00:00 AM [facility] [employer] Cyclobenzaprine 07/21/2019 [facility] hydrochloride 10 MG Oral 12:00:00 AM [employer] [facility] Tablet Acetaminophen 325 MG / 07/21/2019 [facility] Oxycodone Hydrochloride 5 12:00:00 AM [employer] [facility] MG Oral Tablet VRAYLAR 6 mg capsule 07/07/2019 [facility] 12:00:00 AM EST [employer] valacyclovir 1000 MG Oral 07/17/2018 Francisco Javier [facility] Tablet 12:00:00 AM [facility] x.aie m Inc Clonazepam 2 MG Oral Tablet Bon [facility] I nc cariprazine (Vraylar) 6 mg B on [facility] nc 24 HR Bupropion [facility] Hydrochloride 300 MG [facility] Extended Release Oral Tablet fluoxetine HCl (PROZAC PO) B on [facility] I nc ziprasidone 80 MG Oral [facility] I nc
[2020-04-02] MEDS ORDERED: LACTATED RINGERS SOLUTION 1,000 ML IV SCH (06:45)
[2020-04-02] MEDS ORDERED: PROPOFOL 20 ML ONE (07:36)
[2020-04-02] MEDS ORDERED: SUCCINYLCHOLINE CHLORIDE 200 MG/10 ML SYRINGE ONE (07:37)
[2020-04-02] MEDS ORDERED: KETAMINE HCL 500 MG/10 ML VIAL ONE (07:37)
[2020-04-02] MEDS ORDERED: ONDANSETRON 4 MG/2 ML VIAL ONE (07:45)
[2020-04-02] MEDS ORDERED: KETOROLAC TROMETHAMINE 30 MG/1 ML VIAL ONE (07:45)
[2020-04-02 08:50] VITALS: TEMP 98.4
[2020-04-02 09:46] VITALS: BP 108/80; PULSE 80
== END 2020-04-02 09:15 | disposition home or self-care (01) ==
LOC: FECT 06:16
PROVIDERS: ATTEND Psychiatry & Neurology Psychiatry
PROC: GZB4ZZZ Other Electroconvulsive Therapy (ICD-10-PCS; principal; 2020-04-02 09:00)
DX: F32.9 Major depressive disorder, single episode, unspecified (principal)
CPT/HCPCS: 90870; 94760; C9803; U0003

== ENCOUNTER 2020-04-05 06:59 | Day surgery (SDC) | payer OTHER ==
--- OUTSIDE RECORDS SUMMARY | 2020-04-01 11:38 | XMS ---
:1970 Author Organization [facility] Care Team Providers Name Role Phone [...] is protected by Article 27-F of the [place] Public Health law. If you continue you may haveaccess to information: Regarding HIV / AIDS; Provided by facilities licensed or operated by the [facility] Office of Mental Health; or Provided by the [facility] Office for People With Developmental Disabilities. If such information is present, then the following [facility] mandated warning applies: This information has [...] law may result in a fine or long term sentence or both. A general authorization for the release of medical or other information is NOT sufficient authorization for further disclosure. Encounters Encounter Providers Location Date Indications Data Source(s ) Outpatient 01/08/2020 03:30:00 [facility]a PM EDT - 01/12/2020 [facility] 10:23:35 AM EDT Patient discharged. Attender: MARIYA CATHERINE 01/01/2020 12:00:00 AM Bon [facility] Attender: MAURICIO 12/30/2019 12:00:00 AM [facility] Attender: MARIYA CATHERINE 12/29/2019 12:00:00 AM [facility] 12/25/2019 04:00:00 PM [facility] 06:48:40 [facility] PM EDT Patient discharged. OL 12/25/2019 [facility] 11:59:00 PM EDT Attender: MARIYA 12/25/2019 12:00:00 AM [facility] Attender: SUSI LONGO 12/25/2019 12:00:00 AM [facility] Attender: MAURICIO 12/24/2019 12:00:00 AM [facility] Attender: MARIYA 12/22/2019 12:00:00 AM [facility] Attender: SUSI LONGO 12/22/2019 12:00:00 AM [facility] Attender: MAURICIO 12/19/2019 12:00:00 AM [facility] Attender: MARIYA 12/18/2019 12:00:00 AM [facility] Attender: GLADIS FUNEZ 12/18/2019 12:00:00 AM [facility] Attender: SUSI LONGO 12/17/2019 12:00:00 AM [facility] Attender: MAURICIO 12/16/2019 12:00:00 AM Bon [facility] Attender: MARIYA 12/15/2019 12:00:00 AM [facility] Attender: XANDER COLBERT 12/13/2019 12:00:00 AM Bon [facility] Outpatient 12/12/2019 12:00:00 PM Francisco Javier n [facility] EDT - 12/12/2019 [facility] 01:20:23 PM EDT Patient discharged. Attender: ROSSI 12/08/2019 05:55:36 [facility] - 01/02/2020 [facility] 12:00:00 AM EDT System In c Inpatient Admitter: RITIKA 12/05/2019 12:00:00 [facility]T - 12/08/2019 [facility] 03:44:00 PM EDT General Weakness Patient discharged. Outpatient 12/05/2019 12:00:00 AM EDT [facility] Outpatient 12/01/2019 03:45:00 PM EDT - [facility] 12/01/2019 05:01:16 PM EDT Inc Patient discharged. Outpatient 11/14/2019 01:00:00 PM EDT - [facility] 11/18/2019 11:56:43 AM EDT System Inc Patient discharged. Outpatient 11/10/2019 09:00:00 AM EDT - [facility] 11/10/2019 04:44:05 PM EDT System Inc Patient discharged. Inpatient Admitter: RITIKA CANAS 10/29/2019 12:00:00 AM let hargic [facility] EDT - 11/03/[address] [facility] 04:02:00 PM EDT lethargic Patient discharged. Outpatient 09/15/2019 08:22:58 AM EDT [facility] - 09/15/2019 11:59:00 PM Hospital EDT Outpatient 09/10/2019 04:00:00 PM EDT [facility] Outpatient 09/04/2019 03:15:00 PM EDT [facility] Outpatient 08/19/2019 07:31:00 AM EST [facility] ([facility]) Outpatient 08/18/2019 06:35:00 AM EST [facility] ([facility]) Outpatient 08/17/2019 07:16:00 AM EST [facility]EXTGEN ([facility]) Emergency 08/16/2019 12:00:00 AM EST Shortness of Breath [facility] - 08/16/2019 10:45:00 PM Hospital EST Shortness of Breath Patient discharged. Outpatient 08/11/2019 12:05:00 AM EST [facility] Emergency 08/10/2019 12:00:00 AM EST - Chest P ain [facility] 08/11/2019 01:42:00 AM EST Hospital Chest Pain Patient discharged. Outpatient 07/21/2019 04:15:00 PM EST - [facility] 07/22/2019 10:51:43 AM EST System Inc Patient discharged. Immunizations Vaccine Date Status Description Data Source(s) New in 2012. 09/04/2019 completed Influenza Vaccine 09/04/2019 [facility] IIV4 12:00:00 AM EDT (Quad) [facility] Medications Medication Brand Start Product Dose Route Administrative Pharmacy [facility] Indications Reaction Description Data Name Date [...] Tablet tablet 5 mg EDT dose (after [facility] OLANZapine [facility] (ZyPREXA) modification) S ystem tablet 5 mg on Tue Inc 12/09/19 at 0900, Until Discontinued Medication administered onsite Olmesartan olmesartan 12/09/2019 20 Oral completed h ypertension Take 1 Tab by Bon medoxomil (BENICAR) 12:00:00 AM mg paul th [facility] 20 MG Oral 20 mg EDT for 30 days. Bela Tablet tablet Indications: [facility] olmesartan high blood Sys tem (BENICAR) pressure Inc 20 mg tablet hypertension Losartan losartan 12/09/2019 50 Oral active hypertension Take 1 Tab by Bon Potassium (COZAAR) 12:00:00 AM mg mout h daily [facility] 50 MG Oral 50 mg EDT for 30 days. Bela Tablet tablet Indications: [facility] losartan high blood Syste m (COZAAR) 50 [...] doses, Ch arity clonazePAM mg First dose [facility] (KlonoPIN) (after last Sy stem tablet 0.5 modification) Inc mg on 12/07/19 at 1600, Last dose on Denise 12/11/19 at 0900 Medication administered onsite olanzapine OLANZapine 12/07/2019 2.5 Oral aborted 2.5 mg, Oral, Bon 2.5 MG Oral (ZyPREXA) 02:00:00 PM mg D AILY, [facility] Tablet tablet 2.5 EDT dose on Sun Bela OLANZapine mg 12/07/19 at [facility] (ZyPREXA) 1400, Until Sys tem tablet 2.5 Discontinued I nc mg Medication administered onsite [place] lithium 12/07/2019 300 Oral active 300 mg , Oral, Bon Carbonate carbonate SR 02:00:00 PM mg 2 TIMES DAILY, [facility] 300 MG (LITHOBID) EDT First dose o n Bela Extended tablet 300 Sun 0 at [facility] Release Oral mg 1400, Until System Tablet Discontinued Inc lithium carbonate SR (LITHOBID) tablet 300 mg Medication administered onsite Losartan losartan 12/07/2019 50 Oral active 50 m g, Oral, Bon Potassium 50 (COZAAR) 01:00:00 PM mg D AILY, [facility] MG Oral tablet 50 EDT dose on Sun Bela Tablet mg 12/07/19 at [facility] losartan 1300, Until Syst em (COZAAR) Discontinued Inc tablet 50 mg Medication administered onsite furosemide 50451-276-14 12/07/2019 20 IntraVENous complete d 20 mg, [...] 12/13/19 at 0900 Medication administered onsite furosemide 14734-043-02 12/06/2019 20 IntraVENous complete d edema 20 [...] il mg Discontinued Medication administered onsite 0.9% 5493-4569-97 12/05/2019 100 IntraVENous aborted 100 mL/hr, at [...] mg tablet Inc Shared psychotic disorder (HCC) [place] lithium 11/30/2019 aborted Bon Carbonate 300 carbonate [...] (DULCOLAX) 5 Inc mg EC tablet cariprazine [id number] 11/01/2019 6 mg Oral active 6 m [...] Ointment ointment EDT Firs t dose on [facility] hydrocortisone 11/01/19 at [facility] (HYTONE) 2.5 % 1800, Unti l System ointment Discontinued Inc Medication administered onsite Docusate docusate 10/31/2019 200 Oral active 200 mg, Oral, Bon Sodium 100 sodium 02:00:00 PM mg DAILY , [facility] MG Oral (COLACE) EDT dose on Sun C harity Capsule capsule 200 10/31/19 at [facility] docusate mg 1400, Until Syst em [...] haloperidoL tablet 5 mg EDT ONCE, 1 [facility] (HALDOL) dose, [facility] tablet 5 mg Denise System 10/30/19 [facility] at 2100 Medication administered onsite amitriptyline 10/30/2019 150 mg Oral active 1 50 mg, Oral, Bon (ELAVIL) tablet 09:00:00 PM EV AN BEDTIME, [facility] 150 mg EDT First dose on [facility] ity Denise 10/30/19 at [facility] 2100, Until System I nc Discontinued Medication administered onsite Haloperidol 2 haloperidoL 10/30/2019 2 mg Oral aborted 2 mg, Oral, Bon MG Oral (HALDOL) 08:01:20 PM EVERY 6 [facility] Tablet tablet 2 mg EDT HOURS Ch arity haloperidoL NEEDED, Healt h (HALDOL) Starting Denise Sys tem tablet 2 mg 10/30/19 at [facility] 2000, Until Sun10/31/19 at 2043, Psychosis, Agitation Medication administered onsite [place] lithium 10/30/2019 300 Oral active 300 mg , Oral, Bon Carbonate carbonate 12:00:00 PM mg 2 T IMES DAILY, [facility] 300 MG Oral tablet 300 EDT First d ose on Bela Tablet mg Denise 10/30/19 at [facility] lithium 1200, Until Syste m carbonate Discontinued In c tablet 300 mg Medication administered onsite Clonazepam 1 clonazePAM 10/30/2019 1 mg Oral active 1 mg, Oral, 2 Bon MG Oral (KlonoPIN) 12:00:00 PM TIME S DAILY, [facility] Tablet tablet 1 mg EDT First dose on Bela clonazePAM Denise 10/30/19 at [facility] (KlonoPIN) 1200, Until Sy stem tablet 1 mg Discontinued [facility] Medication administered onsite 0.9% 4857-9508-58 10/29/2019 100 IntraVENous aborted 100 mL/hr, at Bon sodium 02:55:00 PM mL/h 100 mL/hr, [facility] chloride EDT IntraVENous, Jagruti rity infusion CONTINUOUS, Starting Wed System 10/29/19 at [facility] 1455, Until 11/01/19 at 1446 Medication administered onsite 0.4 ML enoxaparin 10/29/2019 40 SubCUTAneous active 40 mg, Bon Enoxaparin (LOVENOX) 02:55:00 PM mg Gallardo bCUTAneous, [facility] sodium 100 injection 40 EDT EVERY 24 Bela MG/ML mg HOURS, First [facility] Prefilled dose on Sun Sys tem Syringe 10/29/19 at [facility] enoxaparin 1455, Until (LOVENOX) Discontinued injection 40 mg Medication administered onsite Acetaminophen acetaminophen 10/29/2019 650 Oral active 650 mg, Oral, Bon 325 MG Oral (TYLENOL) 02:44:40 PM mg E VERY 4 HOURS [facility] Tablet tablet 650 mg EDT NEEDED , Bela acetaminophen Starting [facility] (TYLENOL) 10[facility]29/[facility] 650 mg 1444, Until [facility] Discontinued, Mild Pain, Fever Medication administered onsite sodium 57797-884-28 10/29/2019 mL IntraVENous active 5-40 mL, Bon chloride 02:00:00 PM IntraVENo us, [facility] (NS) flush EDT EVERY 8 Charit y 5-40 mL HOURS, First dose on Wed System 10/29/19 at [facility] 1400, Until Discontinued Medication administered onsite sodium 17807-227-13 10/29/2019 mL IntraVENous active 5-40 mL, Bon [...] XL) 150 mg tablet Vraylar 3 mg 68496-457-75 09/03/2019 6 Oral aborted depre ssion Take [...] EST NOW, 1 Bela chewable tablet dose, [facility] 162 mg 08/16/19 System at 2103 Inc Medication administered onsite famotidine 08/16/2019 20 IntraVENous aborted 20 mg, Bon (PF) (PEPCID) 09:02:00 PM mg Intr aVENous, [facility] 20 mg in 0.9% EST EVERY 12 Ch arity sodium HOURS, First Healt h chloride 10 dose on [facility] ystem mL injection 08/16/19 at I nc 2102, Until Discontinued Medication administered onsite methylPREDNISolone [id number] 08/16/2019 125 IntraVENous comple hyun 125 mg, Bon (PF) (Solu-MEDROL) 09:02:00 PM mg IntraVENous, [facility] injection 125 mg EST NOW, 1 d ose, Bela 08/16/19 Health at 2102 System Inc Medication administered onsite 0.9% 3906-4918-03 08/16/2019 1000 IntraVENous completed 1,000 mL, at [...] mg tablet for 3 System days. Inc [place] lithium 08/16/2019 2 Oral active Take 2 [...] Health tablet 162 mg Sun System 08/10/19 [facility] at 2352 Medication administered onsite Cyclobenzaprine cyclobenzaprine [...] back pain due to trauma VRAYLAR 6 18776-213-14 07/07/2019 6 mg Oral aborted Bipolar Take [...] FOR 10 DAYS Herpes zoster cephalicus cariprazine 032021 6 mg Oral aborted Take 6 m g [facility] (Vraylar) 6 mg by mouth C harity capsule daily. Health System Wow! Stuff ziprasidone 80 MG ziprasidone 80 mg Oral aborted Take 80 mg [facility] Oral Capsule (GEODON) 80 mg by mouth Bela ziprasidone capsule two (2) He alth (GEODON) 80 mg times Syst em Inc capsule daily (with meals). fluoxetine HCl 60 mg Oral aborted Take 6 0 mg [facility] (PROZAC PO) by mouth Moira ity daily. Health System Wow! Stuff Clonazepam 2 MG clonazePAM 1 mg Oral [...] [place] Inform ation relationship to boland [facility] [id number] [facility] [id number] [facility] HEALTH PLAN [id number] [facility] HMO [id number] [employer] HEALTH PLAN Commerical [id number] FORMERLY [facility] [id number] PLAN [facility] [id number] HEALTH PLAN FORMERLY [facility] [id number] PLAN [facility] [id number] 900 HEALTH PLAN POLO [id number] POLO [id number] [employer] PPO [id number] FORMERLY [facility] PPO [id number] [place]AN [place] 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 [id number] COMPENSATION [facility] HEALTH PLAN O [id number] 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 [id number] COMPENSATION [facility] [id number] GENERIC [id number] COMMERCIAL FORMERLY [facility] [id number] PLAN [facility] GENERIC Commerical [id number] [facility] PPO [id number] PLAN [facility] [id number] PLAN 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 [id number] COMPENSATION [facility] [id number] [facility] HEALTH PLAN PPO [id number] [facility] Problems, Conditions, and Diagnoses Code Display Name Description Problem Type Effective Data Dates Source(s) T88.7XXA Qsy-ynew-xctvvng Agn-kjud-ltxuyey [id number] 12/05/2019 Francisco Javier n [facility] adverse reaction to adverse reaction to 12:00:0 0 AM Bela medication medication [facility] [employer] T50.905A Adverse drug Adverse drug [id number] 12/05/2019 [place] s reaction, initial reaction, initial 12:00:00 AM [facility] encounter encounter [facility] [employer] G93.40 Encephalopathy acute Encephalopathy acute [id number] 12/04 [facility] 12:00:00 AM Bela [employer] F31.4 Bipolar disorder with Bipolar disorder [id number] 10/29/19 20 [facility] severe depression with severe 12:00:00 AM [facility] depression [employer] E55.9 Vitamin D deficiency Vitamin D deficiency [id number] 09/03 [facility] 12:00:00 AM Bela [employer] F41.8 Mixed anxiety and Mixed anxiety and [id number] 09/04/2019 [facility] depressive disorder depressive disorder 12:00:0 0 AM [facility] E66.01 Morbid obesity Morbid obesity [id number] 07/21/2019 Bon Se cours 12:00:00 AM [facility] [employer] [facility] Z98.84 Status post gastric Status post gastric [id number] 020 [facility] bypass for obesity bypass for obesity 12:00:00 AM [facility] F32.9 Depressive disorder Depressive disorder [id number] 020 [facility] 12:00:00 AM [facility] [employer] [facility] F31.9 Bipolar disorder Bipolar disorder [id number] 07/21/2019 Francisco Javier n [facility] 12:00:00 AM [facility] F41.9 Anxiety Anxiety [id number] 07/21/2019 [facility] 12:00:00 AM [facility] [employer] [facility] G25.2 Other specified forms Other specified Diagnosis 0 [facility] of tremor forms of tremor 03:17:29 PM [facility] F31.4 Bipolar disorder, Bipolar disorder, Diagnosis 12/25/2019 [facility] - Good current episode current episode 04:40:00 PM [facility] depressed, severe, depressed, severe, EDT Hospital without psychotic without psychotic features features F41.9 Anxiety disorder, Anxiety disorder, Diagnosis 12/25/2019 [facility] unspecified unspecified 04:04:24 PM [facility] R25.1 Tremor, unspecified Tremor, unspecified Diagnosis [facility] 04:04:24 PM [facility] Z98.84 Bariatric surgery Bariatric surgery Diagnosis 12/25/2019 [facility] status status 04:04:24 PM [facility] T88.7XXA Unspecified adverse Unspecified adverse Diagnosis [facility] effect of drug or effect of drug or 11:10:37 AM [employer], initial medicament, initial EDT Hospital encounter encounter G93.40 Encephalopathy, Encephalopathy, Diagnosis 12/05/2019 [facility] - Good unspecified unspecified 11:10:37 AM [facility] R41.82 Altered mental Altered mental Diagnosis 12/05/2019 [facility] - Good status, unspecified status, unspecified 11:10:3 7 AM [facility] F51.04 Psychophysiologic Psychophysiologic Diagnosis 11/14/2019 [facility] insomnia insomnia 01:22:52 PM [facility] F32.2 Major depressive Major depressive Diagnosis 09/15/2019 [facility] disorder, single disorder, single 08:22:58 AM S amaritan episode, severe episode, severe EDT Hosp ital without psychotic without psychotic features features F41.8 Other specified Other specified Diagnosis 09/04/2019 [facility] anxiety disorders anxiety disorders 03:49:01 PM [facility] F32.2 Major depressive Major depressive Diagnosis 09/04/2019 Francisco Javier n [facility] disorder, single disorder, single 03:49:01 PM C harity episode, severe episode, severe EDT Heal th without psychotic without psychotic System Inc features features Z23 Encounter for Encounter for Diagnosis 09/04/2019 [facility] immunization immunization 03:49:01 PM [facility] T78.40XA Allergy, unspecified, Allergy, Diagnosis 08/16/2019 [facility] initial encounter unspecified, initial 08:39:16 PM [facility] R06.00 Dyspnea, unspecified Dyspnea, unspecified Diagnosis 08/10 [facility] 11:27:27 PM [facility] F31.75 Bipolar disorder, in Bipolar disorder, in Diagnosis 07/21 [facility] partial remission, partial remission, 04:40:28 PM [facility] most recent episode most recent episode [facility] Surgeries/Procedures Procedure Description Date Indications Data Source(s) HC HC Routine 12/25/2019 Bipolar 12/25/2019 Bipolar Francisco Javier n LITHIUM LITHIUM 4:41 PM EDT disorder 04:41:00 PM disorde r [facility] with severe EDT with severe [facility] depression depression He alth (HCC) ([facility]) System Inc Bipolar disorder with severe depression ([facility]) GLUCOSE, POC GLUCOSE, POC Routine 12/08/2019 12/08/2019 Bon 11:35 AM 11:35:00 [facility] Routine 12/07/2019 12/07/2019 Bon PANEL, BASIC PANEL, BASIC 4:40 AM EDT 04:40:00 A M [facility] EEG 12-26 HR EEG 12-26 HR Routine 12/06/2019 12/06/2019 Bon W/VIDEO W/VIDEO 10:25 AM 10:25:08 AM [facility] L[facility]UM HC LITHIUM Routine 12/06/2019 12/06/2019 Bon 4:25 AM EDT [facility]:25:[facility] LACTIC ACID HC LACTIC ACID STAT 12/05/2019 020 Bon 7:20 PM EDT 07:20:00 [facility] HC AMMONIA HC AMMONIA STAT 12/05/2019 12/05/2019 Bon 7:20 PM EDT 07:20:00 PM [facility] MRI BRAIN WO MRI BRAIN WO STAT 12/05/2019 12/05/2019 Bon CONT CONT 4:50 PM EDT 04:50:12 PM [facility] EEG 12-26 HR EEG 12-26 HR STAT 12/05/2019 12/05/2019 Bon W/VIDEO W/VIDEO 3:19 PM EDT 03:19:24 PM [facility] CULTURE, URINE CULTURE, URINE Routine 12/05/2019 020 Bon 2:45 PM EDT 02:45:00 PM [facility] URINALYSIS W/ URINALYSIS W/ STAT 12/05/2019 0 Bon RFLX RFLX 2:45 PM EDT 02:45:00 PM [facility]OSCOPIC [facility] BILIRUBIN, BILIRUBIN, Routine 12/05/2019 12/05/2019 Bon CONFIRM CONFIRM 2:45 PM EDT 02:45:00 [facility] LACTIC ACID HC LACTIC ACID STAT 12/05/2019 020 Bon 12:40 PM 12:40:00 PM [facility] CULTURE HC CULTURE STAT 12/05/2019 12/05/2019 Bon BLOOD BLOOD 12:38 PM 12:38:00 PM Sec ours EDT EDT [facility] PROTHROMBIN PROTHROMBIN STAT 12/05/2019 12/05/2019 Bon TIME + INR TIME + INR 12:38 PM 12:38:00 PM [facility] EDT [facility] CBC WITH CBC WITH STAT 12/05/2019 12/05/2019 Bon AUTOMATED DIFF AUTOMATED DIFF 12:38 PM 12:38:00 PM [facility] EDT EDT [facility] HC TROPONIN I HC TROPONIN I STAT 12/05/2019 0 Bon QUANT QUANT 12:38 PM 12:38:00 PM Sec ours EDT EDT [facility] METABOLIC METABOLIC STAT 12/05/2019 12/05/2019 Bon PANEL, PANEL, 12:38 PM 12:38:00 PM Sec ours COMPREHENSIVE COMPREHENSIVE EDT EDT [facility] MAGNESIUM MAGNESIUM STAT 12/05/2019 12/05/2019 Bon 12:38 PM 12:38:00 PM Sec ours EDT EDT [facility] HC LITHIUM HC LITHIUM STAT 12/05/2019 12/05/2019 Bon 12:38 PM 12:38:00 PM Sec ours EDT EDT [facility] CT HEAD WO CT HEAD WO STAT 12/05/2019 12/05/2019 Bon CONT CONT 12:30 PM 12:30:54 PM Sec ours EDT EDT [facility] HC CULTURE HC CULTURE STAT 12/05/2019 12/05/2019 Bon BLOOD BLOOD 12:30 PM 12:30:00 PM Sec ours EDT EDT [facility] XR PELV AP XR PELV AP STAT 12/05/2019 12/05/2019 Bon ONLY ONLY 12:14 PM 12:14:58 PM Sec ours EDT EDT [facility] XR CHEST PORT XR CHEST PORT STAT 12/05/2019 0 Bon 12:14 PM 12:14:51 PM Sec ours EDT EDT [facility] RT--OXYGEN RT--OXYGEN STAT 12/05/2019 12/05/2019 Bon CANNULA CANNULA 11:20 AM 11:20:37 AM Sec ours EDT EDT [facility] EEG DIGITAL EEG DIGITAL Routine 12/05/2019 12/05/2019 Bon ANALYSIS ANALYSIS 11:10 AM 11:10:37 AM S [facility] EDT EDT [facility] CBC WITH CBC WITH STAT 10/30/2019 10/30/2019 Bon AUTOMATED DIFF AUTOMATED DIFF 6:40 AM EDT 06:40: 00 AM [facility] EDT [facility] METABOLIC METABOLIC STAT 10/30/2019 10/30/2019 Bon PANEL, BASIC PANEL, BASIC 6:40 AM EDT 06:40:00 A M [facility] EDT [facility] URINALYSIS W/ URINALYSIS W/ STAT 10/29/2019 0 Bon RFLX RFLX 6:34 PM EDT 06:34:00 PM [facility] MICROSCOPIC MICROSCOPIC EDT [facility] XR CHEST PORT XR CHEST PORT STAT 10/29/2019 0 Bon 12:09 PM 12:09:04 PM Sec ours EDT EDT [facility] CT HEAD WO CT HEAD WO STAT 10/29/2019 10/29/2019 Bon CONT CONT 11:47 AM 11:47:42 AM Sec ours EDT EDT [facility] HC GLUCOSE HC GLUCOSE Routine 10/29/2019 10/29/2019 Bon POCT POCT 11:26 AM 11:26:00 AM Sec [facility] EDT EDT [facility] [facility] PROTHROMBIN PROTHROMBIN STAT 10/29/2019 10/29/2019 [facility] TIME + INR TIME + INR 10:45 AM 10:45:00 AM [facility] EDT EDT [facility] CBC WITH CBC WITH STAT 10/29/2019 10/29/2019 [facility] AUTOMATED DIFF AUTOMATED DIFF 10:45 AM 10:45:00 AM [facility] EDT EDT [facility] HC PARTIAL HC PARTIAL STAT 10/29/2019 10/29/2019 [facility] THROMBOPLASTIN THROMBOPLASTIN 10:45 AM 10:45:00 AM [facility] / PTT / PTT EDT EDT [facility] METABOLIC METABOLIC STAT 10/29/2019 10/29/2019 [facility] PANEL, PANEL, 10:45 AM 10:45:00 AM [facility] COMPREHENSIVE COMPREHENSIVE EDT EDT [facility] HC LITHIUM HC LITHIUM STAT 10/29/2019 10/29/2019 [facility] 10:45 AM 10:45:00 AM [facility] EDT EDT [facility] XR SPINE LUMB XR SPINE LUMB Routine [...] n [facility] 9:00 PM EST 02:00:00 AM [facility] I nc CBC WITH AUTOMATED CBC WITH STAT 08/16/2019 0 [facility] DIFF AUTOMATED DIFF 9:00 PM EST 02:00:00 AM [facility] I nc TROPONIN I TROPONIN I STAT 08/16/2019 08/17/2019 [facility] 9:00 PM EST 02:00:00 AM [facility] I nc METABOLIC PANEL, METABOLIC PANEL, STAT 08/16/2019 [facility] COMPREHENSIVE COMPREHENSIVE 9:00 PM EST 02:00:00 AM [facility] I nc MAGNESIUM MAGNESIUM STAT 08/16/2019 08/17/2019 [facility] 9:00 PM EST 02:00:00 AM [facility] [employer] [facility] I nc LITHIUM LITHIUM STAT 08/16/2019 08/17/2019 Francisco Javier [facility] 9:00 PM EST 02:00:00 AM [facility] [employer] [facility] I nc INFLUENZA A <td><content ID="[id number]">INFLUENZA A & B 07/26 [facility] & B [facility] AG (RAPID 05:18:00 AM [facility] (RAPID TEST) TEST)</content></td><td>STAT</td><td>08/11/2019 EST [facility] 12:18 AM EST</td><td></td><td><paragraph Health styleCode="header">Results for this procedure are System in the <content Inc styleCode="[id number]">results section</content>.</paragraph></td> PROTHROMBIN TIME + PROTHROMBIN TIME STAT 08/11/2019 0 08/11/2019 [facility] INR + INR 12:01 AM EST 05:01:00 AM [facility] nc D DIMER D DIMER STAT 08/11/2019 08/11/2019 Francisco [facility]avier [facility] 12:01 AM EST 05:01:00 AM [facility] nc CBC WITH AUTOMATED CBC WITH STAT 08/11/2019 0 [facility] DIFF AUTOMATED DIFF 12:01 AM EST 05:01:00 AM [facility] nc PTT PTT STAT 08/11/2019 08/11/2019 Francisco Javier n [facility] 12:01 AM EST 05:01:00 AM [facility] nc TROPONIN I TROPONIN I STAT 08/11/2019 08/11/2019 [facility] 12:01 AM EST 05:01:00 AM [facility] nc METABOLIC PANEL, METABOLIC PANEL, STAT 08/11/2019 [facility] COMPREHENSIVE COMPREHENSIVE 12:01 AM EST 05:01:0 0 AM [facility] nc MAGNESIUM MAGNESIUM STAT 08/11/2019 08/11/2019 [facility] 12:01 AM EST 05:01:00 AM [facility] nc LITHIUM LITHIUM STAT 08/11/2019 08/11/2019 [facility] 12:01 AM EST 05:01:00 AM [facility] nc LACTIC ACID LACTIC ACID STAT 08/11/2019 08/11/2019 [facility] 12:01 AM EST 05:01:00 AM [facility] nc BNP BNP STAT 08/11/2019 08/11/2019 Francisco Javier n [facility] 12:01 AM EST 05:01:00 AM [facility] nc RT--OXYGEN CANNULA RT--OXYGEN STAT 08/10/2019 020 [facility] CANNULA 11:51 PM EST 04:51:27 AM [facility] nc EKG, 12 LEAD, EKG, 12 LEAD, STAT 08/10/2019 0 [facility] INITIAL INITIAL 10:14 PM EST 03:14:27 AM [facility] I nc Results ID Date Data Source [id number] 03/25/2020 09:42:00 AM EDT [facility] Name Value Range Interpretation Description Data Sup porting Code Source(s) Document(s ) SARS [facility] coronavirus 2 RNA This lab [facility] and reported by [facility]. ID Date Data Source [id number] 03/22/2020 09:00:00 AM EDT [facility] Name Value Range Interpretation Description Data Sup porting Code Source(s) Document(s ) SARS [facility] coronavirus 2 RNA This lab was ordered by [facility] and reported by [facility]. ID Date Data Source [id number] 03/19/2020 10:37:00 AM EDT [facility] Name Value Range Interpretation Description Data Sup porting Code Source(s) Document(s ) SARS [facility] coronavirus 2 RNA This lab was ordered by [facility] and reported by [facility]. ID Date Data Source [id number] 03/15/2020 10:30:00 AM EDT [facility] Name Value Range Interpretation Description Data Sup porting Code Source(s) Document(s ) SARS [facility] coronavirus 2 RNA This lab was ordered by [facility] and reported by [facility]. ID Date Data Source [id number] 03/12/2020 12:00:00 PM EDT [facility] Name Value Range Interpretation Description Data Sup porting Code Source(s) Document(s ) SARS [facility] coronavirus 2 RNA This lab was ordered by [facility] and reported by [facility]. ID Date Data Source [id number] 03/08/2020 10:18:00 AM EDT [facility] Name Value Range Interpretation Description Data Sup porting Code Source(s) Document(s ) SARS [facility] coronavirus 2 RNA This lab was ordered by [facility] and reported by [facility]. ID Date Data Source [id number] 03/04/2020 09:50:00 AM EDT [facility] Name Value Range Interpretation Description Data Sup porting Code Source(s) Document(s ) SARS [facility] coronavirus 2 RNA This lab was ordered by [facility] and reported by [facility]. ID Date Data Source [id number] 03/02/2020 12:15:00 PM EDT [facility] Name Value Range Interpretation Description Data Sup porting Code Source(s) Document(s ) SARS [facility] coronavirus 2 RNA This lab was ordered by [facility] and reported by [facility]. ID Date Data Source [id number] 02/27/2020 09:15:00 AM EDT [facility] Name Value Range Interpretation Description Data Sup porting Code Source(s) Document(s ) SARS [facility] coronavirus 2 RNA This lab was ordered by [facility] and reported by [facility]. ID Date Data Source [id number] 02/23/2020 11:40:00 AM EDT [facility] Name Value Range Interpretation Description Data Sup porting Code Source(s) Document(s ) SARS [facility] coronavirus 2 RNA This lab was ordered by [facility] and reported by [facility]. ID Date Data Source [id number] 02/19/2020 09:56:00 AM EDT [facility] Name Value Range Interpretation Description Data Sup porting Code Source(s) Document(s ) SARS [facility] coronavirus 2 RNA This lab was ordered by [facility] and reported by [facility]. ID Date Data Source [id number] 02/16/2020 08:40:00 AM EDT [facility] Name Value Range Interpretation Description Data Sup porting Code Source(s) Document(s ) SARS [facility] coronavirus 2 RNA This lab was ordered by [facility] and reported by [facility]. ID Date Data Source [id number] 02/13/2020 10:05:00 AM EDT [facility] Name Value Range Interpretation Description Data Sup porting Code Source(s) Document(s ) SARS [facility] coronavirus 2 RNA This lab was ordered by [facility] and reported by [facility]. ID Date Data Source [id number] 02/09/2020 10:25:00 AM EDT [facility] Name Value Range Interpretation Description Data Sup porting Code Source(s) Document(s ) SARS [facility] coronavirus 2 RNA This lab was ordered by [facility] and reported by [facility]. ID Date Data Source [id number] 01/25/2020 09:20:00 AM EDT [facility] Name Value Range Interpretation Description Data Sup porting Code Source(s) Document(s ) 2019 Novel [facility] Coronavirus RNA Interpretation Unspecified Specimen Qualitative CATA Probe Detection This lab was ordered by [facility] and reported by [facility]. ID Date Data Source [id number] 12/25/2019 05:54:30 PM EDT [facility] Name Value Range Interpretation Description Data Sup porting Code Source(s) Document(s ) [place] 0.38 0.6-1.2 Below low normal [facility] [Moles/volu MMOL/L [facility]] in Hospital Serum or Plasma ID Date Data Source [id number] 12/23/2019 01:50:56 PM EDT [facility] Discharge SummaryPatient: Maxwell Mendieta Xiao key Sex: male DOA: 12/05/2019Date of : 1970 A ge: 49 y.o. LOS: LOS: 3 daysAdmit Date: 12/05/2019Discharge Date: 12/08/2019 Admission Diagnoses: Encephalopathy acute [G93.40];Icb-ljba-xpwdyuk adversereactio n to medication [T88.7XXA];Jhe-fuca-rvlieik adverse reaction tomedication [T88.7XXA] Discharge Diagnoses: #1 [...] ICD-10-CM: T50.905AICD -9-CM: E947.9 12/05/2019 - Present Pgu-mwhe-tsnacqn adverse reaction to med ication ICD-10-CM: T88.5IVZUPY-7-NS: 995.20 12/05/2019 - Present Bipolar disorder wit [...] E66.01ICD-9-CM: 278.01 07/19/2018 - Present Spells ICD-10-CM: [id number]-3-BM: IMO00 01 04/08/2016 - Present Seizure disorder [...] Supporting Document(s ) ID Date Data Source [id number] 12/09/2019 02:14:04 PM EDT [facility] referral made. Walker order faxed t o [facility], On License Of [facility] and [facility] [employer] do NOT acc ept pts insurance.Faxed to Moriah at [facility] [place] at FAX [phone]. She reports they ne ed to get authfor walker. Have instucted pt to buy own walker IF not authorized.He i s agreeable to buying walker if needs to.Care Management InterventionsPCP Verified by CM: YesTransition of Care Consult (CM Consult[facility] Home Car e: YesCurrent Support Network: Own Home, Lives with SpouseThe Patient and/or Prachi ent Signal Person was Provided with a Choice of Providerand Agrees with the Discharge Plan?: YesFreedom of Choice List was Provided with Basic Dialogue that Suppor ts thePatient's Individualized Plan of Care/Goals, Treatment Preferences and Sh aresthe Quality Data Associated with the Providers?: YesVeteran Resource Informat ion Provided?: RefusedDischarge LocationDischarge Placement: Home with [facility](ACCEPTED BY [facility])Pt is discharged , picking him up. reports she has phone number timbo pt a follow up psych appt. [facility] to visit. will buy walker [...] Supporting Document(s ) ID Date Data Source [id number] 12/08/2019 03:06:17 PM EDT [facility] I have reviewed discharge instructions w [...] Supporting Document(s ) ID Date Data Source [id number] 12/08/2019 03:02:56 PM EDT [facility] Per your note, pt with acute encephalopa thy and toxic Serum [place] level.Please specify the type of encephalopathy in yo ur progress notes: Toxic encephalopathy due to lithium Metabolic encephalopathy due to Other cause (please specify) Clinically unable to determine UnknownPLEASE DOCUM ENT ANY ADDITIONAL DIAGNOSES AND/OR SPECIFICITY IN THE PROGRESSNOTES AND/OR DISCHARGE SUMMARY. Name Value Range Interpretation Code Description Data Melani rce(s) Supporting Document(s ) ID Date Data Source [id number] 12/08/2019 02:40:45 PM EDT [facility] Problem: SuicideGoal: *STG: Remains safe in [...] Ru Mosher: Progressing Towards GoalGoal: *LTG: Identifies MuteButton12/08/2019 1440 by Ru Mosher: Resolved/Met12/08/2019 143 by [...] Fall R is[facility] and [facility]12/08/2019 1440 by Mosher, Divya yOutcome: Resolved/MetNote: Fall [...] Document Harsh Scale and appropriate interventions in [facility] t.12/08/2019 1440 by Ru Mosher: Resolved/MetNote: [...] Supporting Document(s ) ID Date Data Source [id number] 12/08/2019 02:40:17 PM EDT [facility] Problem: SuicideGoal: *STG: Remains safe in [...] Fall R isk and [facility]Outcome: Progressing Toward s GoalNote: Fall Risk Interventions:Mobility [...] Document Harsh Scale and appropriate interventions in [facility].Outcome: P rogressing Towards GoalNote: [...] Supporting Document(s ) ID Date Data Source [id number] 12/08/2019 01:18:54 PM EDT [facility] General Daily Progress NoteAdmit Date: Hospital day: .tdSubjective:Psycgm Neuro,and PT assessments reviewed. Patie nt qualifies for discharge. Wifecalled, will bring in clothes. New medical regimen di scussed with the . Willneed [place] level later this week.Current Facility-Adminis tered MedicationsMedication [...] past 8 hrs: BP Temp Pulse Resp LrF84612/07 0816 - - - - 96 %12/08/19 [...] initial encounter (12/05/2019)Active Problems: Encephalopathy acute (12/05/2019) Fcb-aaiq-pdjzswz adve rse reaction to medication (12/05/2019)Plan: day of discharge. Name Value Range Interpretation Code Description Data Melani rce(s) Supporting Document(s ) ID Date Data Source [id number] 12/08/2019 12:09:30 PM EDT [facility] Problem: Mobility Impaired (Adult and Pe [...] y.o. male)Date: 12/08/2019Primary Diagnosis: E ncephalopathy acute [G93.40]Mfs-ffuz-asjrjbf adverse reaction to medication [T88.7XXA ]Thi-pvxh-uvbktga adverse reaction to medication [T88.7XXA]Precautions: Fall ASSESSMENT [...] morbidi ty or mortality cardiac cath at [facility] approx 6-8 months ago Other unknown and [...] NoneCritical Beh avior:Neurologic State: AlertOrientation Level: Oriented W1Ufeqphuxj: Appropriate for age attention/concentration;Follows commandsSafety/Judgement: Decreased awar [...] Supporting Document(s ) ID Date Data Source [id number] 12/08/2019 11:48:26 AM EDT [facility] Name Value Range Interpretation Description Data Sup porting Code Source(s) Document(s ) Glucose 132 MG/DL 65-110 Above high normal [facility] [Mass/volume] [facility] in Blood by Hospital Automated test strip ID Date Data Source [id number] 12/08/2019 10:35:45 AM EDT [facility] S/O Patient has shown improvement. He re ports that medications are helping him.He denies any side effectsHe denies any cecilia cidal thoughtsHe reports that he sees a psychiatrist [facility] [place] 300 mg bid [place] level in two days Will increase Zyprexa 5 mg Will follow up as requested Name Value Range Interpretation Code Description Data Melani rce(s) Supporting Document(s ) ID Date Data Source [id number] 12/08/2019 07:28:52 AM EDT [facility] Bedside and Verbal shift change report cristi Hurley, SUSI (oncoming nurse) Annalise DE LEON RN (offgoing nurse). Repor t included the followinginformation SBAR, Kardex, MAR and Recent Results. Name Value Range Interpretation Code Description Data Melani rce(s) Supporting Document(s ) ID Date Data Source [id number] 12/07/2019 08:26:02 PM EDT [facility] Problem: Falls - Risk ofGoal: *Absence [...] Supporting Document(s ) ID Date Data Source [id number] 12/07/2019 07:05:28 PM EDT [facility] Verbal shift change report given to Chandrakant Cox RN (oncoming nurse) by Steven Villalobos RN (offgoing nurse). Report inc luded the following information SBAR, Kardex,Intake/Output, MAR, Recent Result s and Cardiac Rhythm on telemetry. Name Value Range Interpretation Code Description Data Melani rce(s) Supporting Document(s ) ID Date Data Source [id number] 12/07/2019 01:30:56 PM EDT [facility] Trent Jacob MD[address] [place] [address] [id number] Progress NotePatient: Maxwell Bray Sex: [...] (LOVENOX) injection 40 mg 40 mg SubCUTAneous S12NMxvmlsdnl:Visit VitalsBP 153/85 (BP 1 Location: Left arm, BP Prachi ent Position: At rest)Pulse 96Temp 98.7 F (37.1 C)Resp 20Ht 5' 5.75" (1.67 m)Wt 3 01 lb 1.6 oz (136.6 kg)SpO2 96%BMI 48.97 kg/m Body mass index is 48.97 kg/m .Patient V itals for the past 24 hrs: Temp Pulse Resp BP RkK91912/07/19 1249 - 96 - 153/85 - 0 [...] Neuropathic pain of shoulder M79.2 Seizure disorder ([facility]) G40.909 Spells [id number] Severe obesity ([facility]) E66.01 Depression F32.9 Anxiety F41.9 Bipolar disorder (HCC) F31.9 Depressive disorder F32.9 Status post g astric bypass for obesity Z98.84 Morbid obesity ([facility]) E66.01 Mixed anxiety and depressive disorder F41.8 Vitamin D deficiency E55.9 Bipolar disorder with severe depression (HCC) F31.4 Encephalopathy acute G93.40 Adverse drug reaction, ini tial encounter T50.905A Uvj-egbb-xcpupsm adverse reaction to medication T88.7XXA 49 year [...] Supporting Document(s ) ID Date Data Source [id number] 12/07/2019 01:02:36 PM EDT [facility] Pt seen and discussed with Dr Canas .Pt is tearful flat and denies any suicidal thoughts , has been depressed withlithiu m on hold , No Vraylar and he is unable to get his ECT at [facility] And no w will be with [facility] with Dr Womack his lithium level is un therape utic range I will start on lithium , add 2.5mg of zyprexa and lower his klonopin And increase his elavil to 200 mg HSWill get pt followed up with Psychiatry Name Value Range Interpretation Code Description Data [facility] rce(s) Supporting Document(s ) ID Date Data Source [id number] 12/07/2019 12:52:32 PM EDT [facility] Problem: Fluid Volume - Risk of, Imbalan cedGoal: *Balanced intake and outputOutcome: Progressing Towards GoalProblem: Patient Education: Go to Patient Education ActivityGoal: Patient/Family EducationOu tcome: Progressing Towards Goal Name Value Range Interpretation Code Description Data [facility] rce(s) Supporting Document(s ) ID Date Data Source [id number] 12/07/2019 12:45:20 PM EDT [facility] Problem: Falls - Risk ofGoal: *Absence [...] Bra den Scale and appropriate interventions in [facility].Outcome: Progressing Toward s GoalNote: Pressure Injury [...] Supporting Document(s ) ID Date Data Source [id number] 12/07/2019 12:24:47 PM EDT [facility] General Daily Progress NoteAdmit Date: [...] injection 40 mg 40 mg SubCUTA neous Q11WYdtqijhvz:Patient Vitals for the past 8 hrs: BP Temp Pulse Resp YfG38012/06 0956 147/86 98.7 F (37.1 C) 95 [...] initial encounter (12/05/2019)Active Problems: Encephalopathy acute (12/05/2019) Wem-tuxd-nmvzrzu adve rse reaction to medication (12/05/2019)Plan:To increase activity, diet,klonopin. Start Losartan Name Value Range Interpretation Code Description Data Melani rce(s) Supporting Document(s ) ID Date Data Source [id number] 12/07/2019 10:13:28 AM EDT [facility] LTM EEG rigger up DC'd per Dr. Jacob. Name Value Range Interpretation Code Description Data Melani rce(s) Supporting Document(s ) ID Date Data Source [id number] 12/07/2019 10:08:27 AM EDT [facility] [place], [place] [address]LQHWYHC: MAXWELL BRAYMRN: [id number]: [id number]#: [id number] DATE: 12/05/2019LONG TERM MONITORING VIDEO INTERNET RETAILER: Riky Rodriguez HISTORY: The patient is a [...] montages. Digital analysis was performed employing an Internet college internation [employer]. neuralnetwork program with parameterization and statistical analysi [...] seen, that attenuates with eye opening.There was geoa-gb-kkhjrjbf gener alized background slowing.There was no clear focal slowing.ACTIVATION TECHNIQUES: Ph otic stimulation and hyperventilation were notperformed.SLEEP: During drowsiness, there is mild attenuation and slowing of thebackground rhythm. There was normal sleep seen including symmetric vertexwaves, sleep spindles, and K-complexes.OTHER AC TIVITY: There were no clear epileptiform discharges and no seizures orclinical ev ents recorded.DIGITAL ANALYSIS: Variable spectral pattern without significant lef p-oe-aybpkiyjlzfkewmc. Spikes were artifact in nature.DECEMBER 06 DAILY [...] the awake and asleep states due to uybh-um-pfpojvzw diffuse cerebraldysfunc tion that improves to mild over the course of the recording. TRENT JACOB, MDDD: #12/06/2019 10:21:35/SS /[id number]/[id number] #: [id number] / [id number] Name Value Range Interpretation Code Description Data [facility] rce(s) Supporting Document(s ) ID Date Data Source [id number] 12/07/2019 07:45:20 AM EDT [facility] Bedside and Verbal shift change report cristi Dove RN (3Loria) (oncomingnurse) by Vy Green RN (offgoing nurse). Report included the following information SBAR, Kardex, MARand Recent Results. Name Value Range Interpretation Code Description Data [facility] rce(s) Supporting Document(s ) ID Date Data Source [id number] 12/07/2019 07:22:41 AM EDT [facility] All leads and head wrapping intact. Day 2 LTM complete. Awaiting instructions tocontinue for day 3 or DC. Name Value Range Interpretation Code Description Data [facility] rce(s) Supporting Document(s ) ID Date Data Source [id number] 12/07/2019 05:19:11 AM EDT [facility] Name Value Range Interpretation Description Data Sup porting Code Source(s) Document(s ) Sodium 138 136-145 [facility] [Moles/volume] mmol/L [facility] in Serum or Hospital Plasma Potassium 3.5 3.5-5.1 [facility] [Moles/volume] mmol/L [facility] in Serum or Hospital Plasma Chloride 106 98-107 [facility] [Moles/volume] mmol/L [facility] in Serum or Hospital Plasma Carbon 27 21-32 [facility] dioxide, total mmol/L [facility] [Moles/volume] Hospital in Serum or Plasma Anion gap in 10 10-20 [facility] Serum or mmol/L [facility] Plasma Hospital Glucose 140 74-106 Above high normal [facility] [Mass/volume] mg/dL [facility] in Serum or Hospital Plasma Urea nitrogen 19 mg/dL 7-18 Above high normal [facility] [Mass/volume] [facility] in Serum or Hospital Plasma Creatinine 0.94 0.70-1.3 [facility] [Mass/volume] mg/dL 0 [facility] in Serum or Hospital Plasma Glomerular >60 [facility] filtration [facility] rate/1.73 sq M Hospital predicted among blacks [Volume Rate/Area] in Serum or Plasma by Creatinine-bas ed formula (MDRD) Glomerular >60 [facility] filtration [facility]regational rate/1.73 sq M Hospital predicted among non-blacks [Volume Rate/Area] in Serum or Plasma by Creatinine-bas ed formula (MDRD) (NOTE)Estimated GFR is calculated using the Modification of Diet in RenalDisease (MDRD) Study equation, reported for both Americans(GFRAA) and non- Americans (GFRNA), and normalized to 1.7 9g0aeak surface area. The physician must decide which [...] Serum 9.1 mg/dL 8.5-10.1 [facility] or Plasma Hospital ID Date Data Source [id number] 12/06/2019 08:12:24 PM EDT [facility] Bedside and Verbal shift change report cristi Loyd RN (oncoming nurse) Estephania Wakefield RN (offgoing nurse). Report included the followinginformation SBAR, Kardex, MAR, Recent Results, and Med Rec Status. Name Value Range Interpretation Code Description Data Melani rce(s) Supporting Document(s ) ID Date Data Source [id number] 12/06/2019 04:57:12 PM EDT [facility] General Daily Progress NoteAdmit Date: Hospital [...] (LOVENOX) injection 40 mg 40 mg SubCUTAneous K09ROnusepcni:Patient Vi tals for the past 8 hrs: BP Temp Pulse Resp AmC05512/06/19 1547 (!) 164/100 99.6 F (3 7.6 [...] Time: 12/06/19 4:25 AMResult Value Ref Range [place] level 1.09 0.6 - 1.2 MMOL/L Xr [...] initial encounter (12/05/2019)Active Problems: Encephalopathy acute (12/05/2019) Eop-ndrp-ttkjiqi adve rse reaction to medication (12/05/2019)Plan:To reduce iv fluids, repeat lasix Name Value Range Interpretation Code Description Data Melani rce(s) Supporting Document(s ) ID Date Data Source [id number] 12/06/2019 04:14:48 PM EDT [facility] Psychiatry Consult NoteSubjective:Patien t: Maxwell Bray Age: [...] of morbidity or mortality cardiac cath at [facility] approx 6-8 months ago Other unknown and unspecified cause of morbidity or mortal ity concussions Other unknown and unspecified cause of morbidity or mortal ity "periodic disorientation" Other unknown and unspecified cause of morbidity or mo rtality anxiety Psychiatric disorder anxiety, depressionPsychiatric History: Patient reported he was receiving care in outpatient from [facility] psychiatrist marly faust did not discuss details.Substance Use History:Social HistorySubstance and Sexu al ActivityAlcohol Use No Frequency: Never Drinks per session: 1 or 2 Binge freque ncy: NeverSocial HistorySubstance and Sexual ActivityDrug Use NoObjective:Vitals/Phys ical Assessment:Patient Vitals for the past 8 hrs: BP Temp Pulse Resp ObE27712/06/19 081 3 (!) 153/94 100.4 F (38 [...] encounter (12/05/2019)A ctive Problems: Encephalopathy acute (12/05/2019) Fof-gdwa-hdlrpji adverse re action to medication (12/05/2019)Plan:No current [...] Supporting Document(s ) ID Date Data Source [id number] 12/06/2019 01:18:16 PM EDT [facility] Trent Jacob MD[address], [address] [place] [address] [phone].TopVisible Progress NotePatient: Maxwell Bray Sex: male DOA: 12/05/2019Date of : 1970 Age: 49 y.o. LOS: LOS: 1 daySubjective:Awake, alert, tremulous, no current complaintsEEG w/ mild to mod gen slowREVIEW OF SYSTEMS: NO CP, SOB, N,V,D, F,CCurrent Facility-Administered MedicationsMedication Dose Route Frequen cy 0.9% sodium chloride infusion 125 mL/hr IntraVENous CONTINUOUS enoxaparin (LOVE NOX) injection 40 mg 40 mg SubCUTAneous A47OFaedioqmc:Visit VitalsBP (!) 153/94 (BP 1 Location: Left arm, BP Patient Position: At rest)Pulse 100Temp 100.4 F (38 C)Resp 18Ht 5' 5.75" (1.67 m)Wt 300 lb (136.1 kg)SpO2 96%BMI 48.79 kg/m Body mass index is 48.79 kg/m .Patient Vitals for the past 24 hrs: Temp Pulse Resp BP QmP82912/06/19 0813 100.4 F (38 C) 100 18 [...] past 24 hours were reviewed both during [facility] daily workflow process and at the time notated as "note time" in [facility]. (It is not time stamped separately [...] Time: 12/06/19 4:25 AMResult Value Ref Range [place] level 1.09 0.6 - 1.2 MMOL/LCT Results (most recent):Results from [facility] encounter on 12/05/19CT HEAD WO CONT Narrative [...] the brain.MRI Results (most recent):Results from [facility] encounter on 12/05/19MRI BRAIN WO CONT Narrative [...] hic pain of shoulder M79.2 Seizure disorder ([facility]) G40.909 Spells [id number] Severe ob esity ([facility]) E66.01 Depression F32.9 Anxiety F41.9 Bipolar disorder ([facility]) F31.9 Dep ressive disorder F32.9 Status post gastric bypass for obesity Z98.84 Morbid obesit y ([facility]) E66.01 Mixed anxiety and depressive disorder F41.8 Vitamin D deficiency E55 .9 Bipolar disorder with severe depression ([facility]) F31.4 Encephalopathy acute G93.40 Adverse drug reaction, initial encounter T50.905A Dkm-ozlh-bkavclv adverse react ion to medication T88.7XXA49 year [...] Supporting Document(s ) ID Date Data Source [id number] 12/06/2019 11:43:34 AM EDT [facility] LTM study day 1 complete. All leads and head wrapping intact. Day 2 LTM studycommenced and LIVE via WIFI on [facility]. 06/28 Name Value Range Interpretation Code Description Data Melani rce(s) Supporting Document(s ) ID Date Data Source [id number] 12/06/2019 10:48:32 AM EDT [facility] Care Management InterventionsPCP Verifie d by CM: YesCurrent Support Network: Own Home, Lives with SpouseThe Patient and/o r Patient Signal Person was Provided with a Choice of Providerand Agrees with the Betty rose Plan?: YesFreedom of Choice List was Provided with Basic Dialogue that Suppor ts thePatient's Individualized Plan of Care/Goals, Treatment Preferences and Sh aresthe Quality Data Associated with the Providers?: YesVeteran Resource Informat ion Provided?: RefusedDischarge LocationDischarge Placement: HomeCASE YUE LORENZ PSYCHOSOCIAL ASSESSMENTMaxwell Mendieta Asa Admission Marlon e: 12/05/2019MRN: [id number] of : 1970Current date: 12/06/2019 DISCHARGE PLAN: Patient is a 49 year old male admitted to [facility]. CM attempted toreach hi m via room [...] services. Open for SNF. Family [facility]. CM CCLINKD. CM willfollow.Patient Information:Patients Preferred [...] lobo MD[facility] F[facility] SWEEPER: N/APayor: P ayor: [facility] HEALTH PLAN / Plan: [facility] /Product Type: [facility] Payor : @[facility]ITALINSGROUPNAME@Encephalopathy acute [G93.40]Usa-ztwv-kolvyyk adverse reactio n to medication [T88.7XXA]Smn-sgbs-haprcfs adverse reaction to medication [T88.7XXA ]Patient Active Problem ListDiagnosis Code H/O gastric bypass Z98.84 Insomnia G47. 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 Seizure disorder (HCC) G40.909 Spells I [id number] Severe obesity (HCC) E66.01 Depression F32.9 Anxiety F41.9 Bipolar disorder (HCC) F31.9 Depressive disorder F32.9 Status post gastric bypass for ob esity Z98.84 Morbid obesity (HCC) E66.01 Mixed anxiety and depressive disorder F4 1.8 Vitamin D deficiency E55.9 Bipolar disorder with severe depression (HCC) F3 1.4 Encephalopathy acute G93.40 Adverse drug reaction, initial encounter T50.905 A Vqh-cyoo-ciwjhay adverse reaction to medication T88.7XXASocial HistorySubstan ce and Sexual ActivityAlcohol Use No Frequency: Never Drinks per session: 1 or 2 Binge frequency: NeverNumber of stairs into patient home:DME:Cohabitants:Abuse Screen:Physical Abuse/Neglect: DeniesSexual Abuse: DeniesVerbal Abuse: DeniesOther A buse/Issues: DeniesINSURANCE INFORMATION: (Verification)Primary Notes:Secondary No kenton:Workmen's Comp Notes:No-Fault Notes:SSD Notes:Un-Insured Notes:[facility] Notes:Current Functioning:Language [...] Supporting Document(s ) ID Date Data Source [id number] 12/06/2019 07:40:06 AM EDT [facility] 8: Patient found in bed resting [...] Supporting Document(s ) ID Date Data Source [id number] 12/06/2019 05:07:27 AM EDT [facility] Name Value Range Interpretation Description Data Sup porting Code Source(s) Document(s ) [place] 1.09 0.6-1.2 [facility] - Good [Moles/volu MMOL/L [facility] in Hospital Serum or Plasma ID Date Data Source [id number] 12/05/2019 07:59:09 PM EDT [facility] Name Value Range Interpretation Description Data Sup porting Code Source(s) Document(s ) Ammonia 16 UMOL/L 11-32 [facility] - Good [Moles/volum Congregational e] in Plasma Hospital ID Date Data Source [id number] 12/05/2019 07:56:38 PM EDT [facility] Name Value Range Interpretation Description Data Sup porting Code Source(s) Document(s ) Lactate 0.9 0.4-2.0 [facility] - Good [Moles/volu MMOL/L [facility] in Hospital Serum or Plasma ID Date Data Source [id number] 12/05/2019 06:42:57 PM EDT [facility] LTM EEG rigger up complete. Day 1 LTM comm enced and LIVE via WIFI on 06/28 Name Value Range Interpretation Code Description Data Melani rce(s) Supporting Document(s ) ID Date Data Source [id number] 12/05/2019 06:07:34 PM EDT [facility] [id number] [facility]-MINDEDeBrevia [facility] 4T OR THOPEDICS [address] [facility] [address] [phone] Maxwell Bray (Male) [id number] I 3 ED Dispo:ADMIT Chief Complaint: Fall, Fatigue Diagnosis: Altered mental status, unspecified altered mental status type [] Adverse drug reaction, initial encounter [] Encephalopathy acute [] Yof-uxhc-fhmvkrx adverse effect of medication, subsequent encounter [] Bipolar disorder with severe depression (HCC) [] H/O gastric bypass [] Curre nt Providers: Attending: Patsy Manzo; Kristy Otero; Cristi Canas Consulting Provider: Jose Centeno; Cristi Canas; Javier Khan; Cristi Frazier Primary Nurse: BAILEY GambleN: [phone] [employer] [phone] - [facility] Ed Medva MrnMRN: [id number] [employer] [phone] - [facility] Ed Medva Age SexDOB 1970 AGE 49 SEX Male Primary Care Provider: Ritika Canas MD Phone: Allergies: (No Known Allergies)Date Reviewed: 12/05/2019Reviewed by: Ritika Canas MD - Review CompleteED Provider Notes: All notesHNO ID: [id number]: Julio Manzo MDService: EMERGENCYAuthor Type: Physici anFiled: [...] of morbidity or mortality cardiac cath at [facility] approx 6-8 months ag o Other unknown [...] week Gets together: Once a week Attends alevism service: More than 4 times per year [...] Calculation (Bez et) 515 ms Calculated P [place] 40 degrees Calculated R [place] 41 degrees Calculated T [place] 147 degrees Diagnosis Sinus tachycardiaProbable left atrial [...] Time: 12/05/19 12:38 PMResult Value Ref Range [place] level 1 .53 (HH) 0.6 - 1.2 MMOL/LLACTIC ACID Collection Time: 12/05/19 12:40 PMResult Value Ref Range Lactic acid 1.1 0.4 - 2.0 MMOL/LEKG:Sinus tachycardia at 100 BPM, normal axis, nothing acute.Interpreted by Julio Manzo MD11:20 AM monitor and storage bin tender reading shows sinus tachycardia at 100 BPM.Interpreted [...] mental status, unspecified altered mental status type R41.82802.97Patient c ondition at time of disposition: StableI [...] thediagnostic studies, unless otherwise noted.+ED Orde rs 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 [#[id number]] Priority: STAT Class: Hospital Performe d Standing Order Information Remaining Occurrences:0/1 Interval:Continuous Last release d:12/05/2019 Released orders: SunDec 05, 2019 11:20 AM by: JULIO MANZO Type: -> Bedside N [id number] PULSE OXIMETRY CONTINUOUS [#[id number]] Priority: STAT Class: Hospital Performe d Standing Order Information Remaining Occurrences:0/1 Interval:CONTINUOUS Last release d:12/05/2019 Released orders: SunDec 05, 2019 11:20 AM by: JULIO MANZO [id number] PULSE OXIMETRY SPOT CHECK [#[id number]] Priority: STAT Class: Hospital Performed Standing Order Inf ormation Remaining Occurrences:0/1 Interval:ONE TIME Last released:12/05/2019 Release d orders: SunDec 05, 2019 11:20 AM by: JULIO MANZO [id number] OBTAIN OLD EKG [ #[id number]] Priority: Routine Class: Hospital Performed Standing Order Information Remainin g Occurrences:0/1 Interval:ONE TIME Last released:12/05/2019 Released orders : SunDec 05, 2019 11:20 AM by: JULIO MANZO [id number] 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 [# [id number]] Priority: STAT Class: Hospital Performed Type: -> Bedside Released on: 12/05/2019 11:20 AM [id number] PULSE OXIMETRY CONTINUOUS [#[id number]] Priority: STAT Class: Hospital Performe d Released on: 12/05/2019 11:20 AM [id number] PULSE OXIMETRY SPOT CHECK [#[id number]] Priori ty: STAT Class: Hospital Performed Released on: 12/05/2019 11:20 AM [id number] OBTAIN OLD EKG [#[id number]] Priority: STAT Class: Hospital Performed Released on: 12/05/2019 11:20 AM [id number] VITAL SIGNS PER UNIT ROUTINE [#[id number]] Priority: STAT Class: Hospital Performed Stand ing Order Information Remaining Occurrences:0/1 Interval:CONTINUOUS Last released :12/05/2019 Released orders: SunDec 05, 2019 2:41 PM by: RITIKA CANAS Comment:More frequent ly if Indicated. [id number] BEDREST, COMPLETE [#[id number]] Priority: STAT Class: H ospital Performed Standing Order Information Remaining Occurrences:0/1 Interval:CONTIN UOUS Last released:12/05/2019 Released orders: SunDec 05, 2019 2:41 PM by: RITIKA CANAS [id number] NOTIFY PROVIDER: VITAL SIGNS CHANGES [#[id number]] Priority: STAT Class: Hospital Performe d Standing [...] Less than 120 ml in 4 hours [id number] APPLY/MAINTAIN SEQUENTIAL COMPRESSIO* [# [id number]] Priority: STAT Class: Hospital Performed Standing Order Information Remaining Occurre nces:0/1 Interval:CONTINUOUS Last released:12/05/2019 Released orders: SunDec 05, 2019 2:41 PM by: RITIKA CANAS [id number] VITAL SIGNS PER UNIT ROUTINE [#[id number]] Priorit y: STAT Class: Hospital Performed Comment:More frequently if Indicated. Released on: 12/05/2019 2 :41 PM [id number] BEDREST, COMPLETE [#[id number]] Priority: STAT Class: Hospital Performe d Released on: 12/05/2019 2:41 PM [id number] NOTIFY PROVIDER: VITAL SIGNS CHANGES [#[id number]] Priority: STAT Class: Hospital Performed Temp -> [...] carmen rs Released on: 12/05/2019 2:41 PM [id number] APPLY/MAINTAIN SEQUENTIAL COMPRESSIO* [#[id number]] P riority: STAT Class: Hospital Performed Released on: 12/05/2019 2:41 PM [id number] RT--OXYGEN CANNULA [#[id number]] Priority: STAT Class: Hospital Performed Standing Order Information Remaining Occurrences:0/1 Interval:CONTINUOUS Last released:12/05/2019 Released o rders: SunDec 05, 2019 11:20 AM by: JULIO MANZO LPM -> 2 Indications for O2? -> CHEST PAIN [id number] RT--OXYGEN CANNULA [#[id number]] Priority: STAT Class: Hospital Performe d LPM -> 2 Indications for O2? -> CHEST PAIN Released on: 12/05/2019 11:20 AM [id number] DIET NPO [#[id number]] Canceled Priority: STAT Class: Hospital Performed Cancele d by RITIKA CANAS on SunDec 05, 2019 2:41 PM Reason: None Comment: Standing Order Information Remaining Occurrences:0/1 Interval:DIET EFFECTIVE NOW Last released:12/05/2019 Release d orders: SunDec 05, 2019 11:20 AM by: JULIO MANZO NPO options: -> With Meds [id number] DIET NPO [#[id number]] Canceled Priority: STAT Class: Hospital Performed Cancele d by RITIKA CANAS on SunDec 05, 2019 2:41 PM Reason: None Comment: NPO options: -> With Meds Released on: 12/05/2019 11:20 AM [id number] DIET NPO [#[id number]] Priority: S TAT Class: Hospital Performed Standing Order Information Remaining Occurrences:0/1 Inter haile:DIET EFFECTIVE NOW Last released:12/05/2019 Released orders: SunDec 05, 2019 2:41 PM by: RITIKA CANAS [id number] DIET NPO [#[id number]] Priority: STAT Class: H ospital Performed Released on: 12/05/2019 2:41 PM [id number] SALINE LOCK IV [#[id number]] Priority: STAT Class: Hospital Performed Standing Order Information Remaining Occurrences:0 /1 Interval:ONE TIME Last released:12/05/2019 Released orders: SunDec 05, 2019 11:20 AM by: JULIO MANZO IVT11 SALINE LOCK IV [#[id number]] Priority: STAT Cl ass: Hospital Performed Released on: 12/05/2019 11:20 AM [id number] METABOLIC PANEL, COMPREHENSIVE [# [id number]] Priority: STAT Class: ER Collect Standing Order Information Remaining Occurrences:0 /1 Interval:ONE TIME Last released:12/05/2019 Released orders: SunDec 05, 2019 11:20 AM by: JULIO MANZO [id number] CBC WITH AUTOMATED DIFF [#[id number]] Priority: STAT Cl ass: ER Collect Standing Order Information Remaining Occurrences:0/1 Interval:ONE TI ME Last released:12/05/2019 Released orders: SunDec 05, 2019 11:20 AM by: JULIO MANZO [id number] TROPONIN I [#[id number]] Priority: STAT Class: ER Collect Sta nding Order Information Remaining Occurrences:0/1 Interval:ONE TIME Last released:0 12/05/2019 Released orders: SunDec 05, 2019 11:20 AM by: JULIO MANZO [id number] MAGNESIUM [#[id number]] Priority: STAT Class: ER Collect Standing Order Information Remaining Occurrences:0/1 Interval:ONE TIME Last released:12/05/2019 Released orders : SunDec 05, 2019 11:20 AM by: JULIO MANZO [id number] LACTIC ACID [#[id number]] Priority: STAT Class: ER Collect Standing Order Information Remaining Occurrences:0/2 Interval:NOW THEN EVERY 4 HOURS Last released:12/05/2019 Released orders: SunDec 05, 2019 12:06 PM by: JULIO MANZO SunDec 05, 2019 11:20 AM by: JULIO MANZO [id number] PROTHROMBIN TIME + INR [#[id number]] Priority: STAT Class: ER Collect Standing Order Information Remain ing Occurrences:0/1 Interval:ONE TIME Last released:12/05/2019 Released orders : SunDec 05, 2019 11:20 AM by: JULIO MANZO [id number] URINALYSIS W/ RFLX MICROSCOPIC [# [id number]] Priority: STAT Class: ER Collect Standing Order Information Remaining Occurrences:0 /1 Interval:ONE TIME Last released:12/05/2019 Released orders: SunDec 05, 2019 11:20 AM by: JULIO MANZO [id number] METABOLIC PANEL, COMPREHENSIVE [#[id number]] Priority: STAT Cl ass: ER Collect Specimen Source: Plasma Specimen Collected: 12/05/2019 12:38 PM Resulting Agency: [facility] Test ID: MPL Released on: 12/05/2019 11:20 AM [id number] CBC WITH A UTOMATED DIFF [#[id number]] Priority: STAT Class: ER Collect Specimen Source: Whole Blood S pecimen Collected: 12/05/2019 12:38 PM Resulting Agency: [facility] Test ID: CBCXA Released on: 12/05/2019 11:20 AM [id number] TROPONIN I [#[id number]] Prior ity: STAT Class: ER Collect Specimen Source: Plasma Specimen Collected: 12/05/2019 12:38 PM Resultin g Agency: [facility] Test ID: TROIP Released on: 12/05/2019 11:20 AM [id number] MAGNESIUM [#[id number]] Priority: STAT Class: ER Collect Specimen Source : Plasma Specimen Collected: 12/05/2019 12:38 PM Resulting Agency: [facility] Test ID: MGPL Released on: 12/05/2019 11:20 AM [id number] LACTIC ACID [#[id number]] P riority: STAT Class: ER Collect Specimen Source: Plasma Specimen Collected: 12/05/2019 12:40 PM Resultin g Agency: [facility] Test ID: LAC Released on: 12/05/2019 11:20 AM [id number] PROTHR OMBIN TIME + INR [#[id number]] Priority: STAT Class: ER Collect Specimen Source: Plasma Spe cimen Collected: 12/05/2019 12:38 PM Resulting Agency: [facility] Test ID: APTHR R eleased on: 12/05/2019 11:20 AM [id number] URINALYSIS W/ RFLX MICROSCOPIC [#[id number]] Prior ity: STAT Class: ER Collect Specimen Source: Urine Specimen Collected: 12/05/2019 2:45 PM Resultin g Agency: [facility] Test ID: UA Released on: 12/05/2019 11:20 AM [id number] LITHIU M [#[id number]] Priority: STAT Class: ER Collect Standing Order Information Remaining Occurrences:0/1 Interval:ONE TIME Last released:12/05/2019 Released orders : SunDec 05, 2019 11:40 AM by: MECHELLE GAMBLE [id number] LITHIUM [# [id number]] Priority: STAT Class: ER Collect Specimen Source: Serum Specimen Collected: 12/05/2019 12 :38 PM Resulting Agency: [facility] Test ID: LI Released on: 12/05/2019 11:40 AM [id number] LITHIUM [#[id number]] Canceled Priority: STAT Class: ER Collect Canceled by TENA, [facility] on SunDec 05, 2019 11:42 AM Reason: Other Comment: Duplicate Standing Order Information Remaining Occurrences:0/1 Interval:ONE TIME Last released:0 12/05/2019 Released orders: SunDec 05, 2019 11:41 AM by: ANAIS JULIO [id number] LITHIUM [#[id number]] Canceled Priority: STAT Class: ER Collect Specimen Collected: 12/05/2019 11:45 AM Resulting Agency: [facility] Test ID: LI Canceled by TENA, [facility] on SunDec 05, 2019 11:42 AM Reason: Other Comment: Duplicate Rele ased on: 12/05/2019 11:41 AM [id number] LACTIC ACID [#[id number]] Priority: STAT Cl ass: ER Collect Resulting Agency: [facility] Test ID: LAC Released on: 12/05/2019 12:06 PM [id number] AMMONIA [#[id number]] Priority: Routine Class: ER Collect Specimen Source: Blood Standing Order Information Remaining Occurrences:0/1 Interval:ONE TI ME Last released:12/05/2019 Released orders: SunDec 05, 2019 3:19 PM by: Javier KHAN [id number] AMMONIA [#[id number]] Priority: STAT Class: ER Collect Spe cimen Source: Blood Resulting Agency: [facility] Test ID: NH3 Released on: 12/05/2019 3:19 PM [id number] BILIRUBIN, CONFIRM [#[id number]] Priority: Routine Class : ER Collect Resulting Agency: [facility] Test ID: ICTO Standing Order Informat ion Remaining Occurrences:0/1 Released orders: SunDec 05, 2019 2:45 PM by: Automatic B atch Process [id number] BILIRUBIN, CONFIRM [#[id number]] Priority: Routine Class : ER Collect Specimen Source: Miscellaneous sample Specimen Collected: 12/05/2019 2:45 PM Resultin g Agency: [facility] Test ID: ICTO Released on: 12/05/2019 2:45 PM [id number] EKG, 12 LEAD, INITIAL [#[id number]] Priority: STAT Class: Hospital Performed Stand ing Order Information Remaining Occurrences:0/1 Interval:ONE TIME Last released:0 12/05/2019 Released orders: SunDec 05, 2019 11:20 AM by: JULIO MANZO Reason for Exam: -> Chest Pain [id number] EKG, 12 LEAD, INITIAL [#[id number]] Priority: STAT Class: H ospital Performed Resulting Agency: [facility] Test ID: [id number] Reason for Exam: -> Chest Pain Releas ed on: 12/05/2019 11:20 AM [id number] XR CHEST PORT [#[id number]] Priority: STAT Clas s: Hospital Performed Standing Order Information Remaining Occurrences:0/1 Interval:ONE TI ME Last released:12/05/2019 Released orders: SunDec 05, 2019 11:20 AM by: JULIO MANZO Reason for Exam -> Chest Pain [id number] CT HEAD WO CONT [#[id number]] Priority: S TAT Class: Hospital Performed Standing Order Information Remaining Occurrences:0/1 Inter haile:ONE TIME Last released:12/05/2019 Released orders: SunDec 05, 2019 11:20 AM by: JULIO MANZO Reason for Exam -> ams [id number] XR PELV AP ONLY [#[id number]] Priority: S TAT Class: Hospital Performed Standing Order Information Remaining Occurrences:0/1 Inter haile:ONE TIME Last released:12/05/2019 Released orders: SunDec 05, 2019 11:20 AM by: JULIO MANZO Reason for Exam -> fall [id number] XR CHEST PORT [#[id number]] Priority: STAT Class: Hospital Performed Specimen Collected: 12/05/2019 12:21 PM Resulting Agency: [facility] Test ID: [id number] Reason for Exam -> Chest Pain Released on: 12/05/2019 11:[id number] HEAD WO CONT [#[id number]] Priority: STAT Class: Hospital Performed Specimen Collected : 12/05/2019 12:43 PM Resulting Agency: [facility] Test ID: [id number] Reason for Exam -> ams R eleased on: 12/05/2019 11:20 AM [id number] XR PELV AP ONLY [#[id number]] Priority: STAT Class: Hospital Performed Specimen Collected: 12/05/2019 12:23 PM Resulting Agency: [facility] Test ID : [id number] Reason for Exam -> fall Released on: 12/05/2019 11:20 AM [id number] MRI BRAIN WO CONT [#[id number]] Priority: STAT Class: Hospital Performed Standing Order Information Remaining Occurrences:0/1 Interval:ONE TIME Last released:12/05/2019 Released orders : SunDec 05, 2019 3:19 PM by: JOSE KHAN Reason for Exam -> ams [id number] MRI BRA IN WO CONT [#[id number]] Priority: STAT Class: Hospital Performed Specimen Collected : 12/05/2019 5:03 PM Resulting Agency: [facility] Test ID: [id number] Reason for Exam -> ams R eleased on: 12/05/2019 3:19 PM [id number] CULTURE, BLOOD [#[id number]] Priority: Routi ne Class: ER Collect Specimen Source: Blood Standing Order Information Remaining Occurrences:0 /1 Interval:ONE TIME Last released:12/05/2019 Released orders: SunDec 05, 2019 11:20 AM by: JULIO MANZO [id number] CULTURE, BLOOD [#[id number]] Priority: STAT Cl ass: ER Collect Specimen Source: Blood Standing Order Information Remaining Occurrences:0/1 I nterval:ONE TIME Last released:12/05/2019 Released orders: SunDec 05, 2019 11:20 AM by: JULIO MANZO [id number] CULTURE, BLOOD [#[id number]] Priority: STAT Class: E R Collect Specimen Source: Blood Specimen Collected: 12/05/2019 12:38 PM Resulting Agency: [facility] Test ID: HBCS Released on: 12/05/2019 11:20 AM [id number] CULTURE, BLOOD [#[id number]] Priority: STAT Class: ER Collect Specimen Source: Blood Specimen Collected: 12/04 12:30 PM Resulting Agency: [facility] Test ID: HBCS Released on: 12/05/2019 11:20 AM CEFTRIAXONE 1 GRAM IVPB MBP [#[id number]] Priority: STAT Class: Normal An tibiotic Indications -> Sepsis of Unknown Etiology SODIUM CHLORIDE 0.9 % IV [#[id number]] Priority: STAT Class: Normal SODIUM CHLORIDE 0.9 % IV [#[id number]] Priority : STAT Class: Normal ENOXAPARIN 40 MG/0.4 ML SUB-Q SYRINGE [#[id number]] Priority: STAT Class: N ormal ENOXAPARIN 40 MG/0.4 ML SUB-Q SYRINGE [#[id number]] Priority: STAT Class: Normal FUROSEMIDE 10 MG/ML IJ SOLN [#[id number]] Priority: STAT Class: Normal CON53 IP CONSULT TO PS YCHIATRY [#[id number]] Priority: STAT Class: Hospital Performed Standing Order Information Remaining Occurrences:0/1 Interval:ONE TIME Last released:12/05/2019 Released orders : SunDec 05, 2019 11:42 AM by: JULIO MANZO Reason for Consult: -> si Did you call or spea k to the consulting provider? -> No Consult To -> si CON53 IP CONSULT TO PSYCHIATRY [#[id number]] Priority: STAT Class: Hospital Performed Reason for Consult: -> si Did you call or spea k to the consulting provider? -> No Consult To -> si Released on: 12/05/2019 11:42 AM CON62 IP CON SULT TO INTERNAL MEDICINE [#[id number]] Priority: STAT Class: Hospital Performed Standing Order Inf ormation Remaining Occurrences:0/1 Interval:ONE TIME Last released:12/05/2019 Release d orders: SunDec 05, 2019 2:16 PM by: CARLA OTERO Reason for Consult: -> Altered mental st atus, Dr. Canas to admit Did you call or speak to the consulting provider? -> Yes CON62 IP CONSULT TO INTERNAL MEDICINE [#[id number]] Priority: STAT Class: Hospital Performed Reason for Consu lt: -> Altered mental status, Dr. Canas to admit Did you call or speak to the consulting provider? -> Yes Released on: 12/05/2019 2:16 PM CON53 IP CONSULT TO PSYCHIATRY [#[id number]] Priority: STAT Class: Hospital Performed Standing Order Information Remaining Occurrences:0 /1 Interval:ONE TIME Last released:12/05/2019 Released orders: SunDec 05, 2019 2:41 PM by: RITIKA CANAS Reason for Consult: -> adverse med reaction Did you call or speak to t he consulting provider? -> No Consult To -> Dr Aguirre Schedule When? -> TODAY CON9 IP CONSULT TO N EUROLOGY [#[id number]] Priority: STAT Class: Hospital Performed Standing Order Information Remaining Occurrences:0/1 Interval:ONE TIME Last released:12/05/2019 Released orders : SunDec 05, 2019 2:41 PM by: RITIKA CANAS Reason for Consult: -> encephalopathy adverse drug reaction Did you call or speak to the consulting provider? -> No Consult To -> Dr Jacob Schedule When? -> TODAY CON53 IP CONSULT TO PSYCHIATRY [#[id number]] Priority: STAT Class: H ospital Performed Reason for Consult: -> adverse med reaction Did you call or speak to the consulting provider? -> No Consult To -> Dr Aguirre Schedule When? -> TODAY Released on: 12/05/2019 2:41 P M CON9 IP CONSULT TO NEUROLOGY [#[id number]] Priority: STAT Class: Hospital Performe d Reason for Consult: -> encephalopathy adverse drug reaction Did you call or speak to the consulting provider? -> No Consult To -> Dr Jacob Schedule When? -> TODAY Released on: 12/05/2019 2:41 P M [id number] INITIAL PHYSICIAN ORDER: OBSERVATION* [#[id number]] Priority: Routine Class: ADT Pend Trans milvia Standing Order Information Remaining Occurrences:0/1 Interval:ONE TIME Last release d:12/05/2019 Released orders: SunDec 05, 2019 2:00 PM by: LUZ ELENA GATES Patient Class: -> OBS ERVATION Admitting Diagnosis -> Encephalopathy acute Admitting Physician -> CARLA OTERO Attending Physician -> CARLA OTERO [id number] INITIAL PHYSICIAN ORDER: OBSERVATION* [#[id number]] Priority: Routine Class: ADT Pend Transfer Patient Class: -> OBSERVATION Admitting Diagnosis -> Encephalopathy acute Admitting Physician -> CARLA OTERO Attending Physician -> CARLA OTERO Released on: 12/05/2019 2:00 PM [id number] INITIAL PHYSICIAN ORDER: INPATIENT [#[id number]] Joan renner: Routine Class: ADT Pend Transfer [...] o- n- ) Admitting Diagnosis - > Ziv-qset-dxqvdne adverse reaction to medication Admitting Physician -> RITIKA CANAS Physician -> RITIKA CANAS Estimated Length of Stay -> 5-7 Midnights Discharge Plan: -> Other (Specify) [id number] INITIAL PHYSICIAN ORDER: INPATIENT [#[id number]] Priority: Routine Class: ADT Pend Tr ansfer [...] i- o- n- ) Admitting Diagnosis -> Nbu-fmqo-lzrjgsh adverse reaction to medication Admitting Physician -> RITIKA CANAS Attending Physician -> MARY CANAS Estimated Length of Stay -> 5-7 Midnights Discharge Plan: -> Other (Specify) [id number] [facility] PHYSICIAN ORDER: INPATIENT [#[id number]] Priority: Routine Class: ADT Pend Transfer Status: [...] i- o- n- ) Admitting Diagnosis -> Dag-uzlm-kfeudka adverse reaction to medication Admitting Physician -> RITIKA CANAS Attending Physician -> MARY CANAS Estimated Length of Stay -> 5-7 Midnights Discharge Plan: -> Other (Specify) Released on: 12/05/2019 2:41 PM [facility] INITIAL PHYSICIAN ORDER: INPATIENT [#[id number]] Priority: Routine Class : ADT Pend Transfer [...] o- n- ) Adm itting Diagnosis -> Bos-diyt-tgqbhqp adverse reaction to medication Admitting Physician -> RITIKA CANAS Attending Physician -> RITIKA CANAS Estimated Length of Stay -> 5-7 Midnights Discharge Plan: -> Other (Specify) Released on: 12/05/2019 2:41 PM COD2 FULL CODE [#[id number]] Priority: STAT Class: Hospital Performed Standing Order Information Remaining Occurrences:0 /1 Interval:CONTINUOUS Last released:12/05/2019 Released orders: SunDec 05, 2019 2:41 PM by: RITIKA CANAS COD2 FULL CODE [#[id number]] Priority: STAT Cl ass: Hospital Performed Released on: 12/05/2019 2:41 PM [id number] EEG 12-26 HR W/VIDEO [# [id number]] Priority: Routine Class: Hospital Performed Standing Order Information Remaining Occurre nces:0/1 Interval:ONE TIME Last released:12/05/2019 Released orders: SunDec 04 3:19 PM by: JOSE KHAN Reason for Exam: -> ams [id number] EEG 12-26 HR W/VIDEO [#[id number]] Priority: STAT Class: Hospital Performed Resulting Agency: [facility] Test ID: [id number] Reason for Exam: -> ams Released on: 12/05/2019 3:19 JORDYMaxwell waddell MR#: [id number] * Rm: 441- 01Ht: 5' 5.75" Wt: 300 lb Code: Full Code Iso:Diagnosis:Encep halopathy acute [G93.40]Allergies: No Known Allergies -------- Current as of: 12/05/19 1807 NB=New Bag --aspirin (ASPIRIN) tablet 325 mg #[id number] Admin Amount: 1 Tab (1 x 325 mg Tab) Ordered Dose: 325 mg Route: Oral Freq: ONCE Start Date: 12/24/13 No administration times (back 96 hours, ahead 96 hours). ------diphenhydrAMINE (BENADRYL) capsule 50 mg #[id number] Admin Amount: 1 Cap (1 x 50 mg Cap) Ordered Dose: 50 mg Route: Ora l Freq: NOW Start Date: 12/24/13 No administration times (back 96 hours, ahe ad 96 hours). ------diazepam (VALIUM) tablet 5 mg #[id number] Admin Amount: 1 Tab (1 x 5 mg Tab) Ordered Dose: 5 mg Route: Oral Freq: ON CE Start Date: 12/24/13 No administration times (back 96 hours, ahead 96 hours). ------lidocaine (XYLOCAINE) 10 mg/mL (1 %) injection 1-30 mL #[id number] Admin Amount: 1-30 mL Ordered Dose: 1-30 mL Route: IntraDERMal Freq: ONCE Start Date: 12/24/13 No administration times (back 96 hours, ahead 96 hours). ------heparin (PF) 2 units/ml in NS infusion 2,000 Units #[id number] Admin Amount: 1,000 mL = 2,000 Units of 2 Units/mL Ordered Dose: 1,000 mL [place]: Irrigation Freq: ONCE Start Date: 12/24/13 No administration times (back 96 hours, ahead 96 hours). ------heparinized saline 2 units/mL infusion 1,000 Units #[id number] Admin Amount: 500 mL = 1,000 Units of 2 Units/mL Ordered Dose: 500 mL [place]: IntraarTERial Freq: ONCE Start Date: 12/24/13 No administration times (back 96 hours, ahead 96 hours). ------0.9% sodium chloride infusion #[id number] Ordered Dose: 75 mL/hr Route: IntraVENous Freq: CONTINUOUS Start Date: 12/24/13 Rate: 75 mL/hr Duration: No administration times (back 96 hours, ahead 96 hours). ------ioversol (OPTIRAY) 320 mg iodine/mL contrast injection 1-100 mL #[id number] Admin Amount: 1-100 mL Ordered Dose: 1-100 mL Route: IntraVENous Freq: RAD O NCE Start Date: 12/24/13 No administration times (back 96 hours, ahead 96 hours).Maxwell Bray MR#: [id number] * Rm: 441-01Ht: 5' 5.75" Wt: 300 lb Cod e: Full Code Iso:Diagnosis:Encephalopathy acute [G93.40]Allergies: No Known Allergies -------- Current as of: 12/05/19 1807 NB=New Bag --gadobutrol (GADAVIST) contrast solution 1-10 mL #[id number] Admin Amount: 1-10 mL Ordered Dose: 1-10 mL Route: IntraVENous Freq: RAD O NCE Start Date: 01/13/14 No administration times (back 96 hours, ahead 96 hours). ------sodium chloride (NS) flush 5-10 mL #[id number] Admin Amount: 5-10 mL Ordered Dose: 5-10 mL Route: IntraVENous Freq: RAD ONCE Start Date: 01/13/14 No administration times (back 96 hours, ahead 96 hours). ------sodium chloride (NS) 0.9 % flush #[id number] Ordered Dose: Route: Freq: Start Date: 01/13 No administration times (back 96 hours, ahead 96 hours). ------morphine injection 2 mg #[id number] Admin Amount: 1 mL = 2 mg of 2 mg/mL Ordered Dose: 2 mg Route: IntraVENous Freq: NOW Start Date: 03/13/15 No administration times (back 96 hours, ahe ad 96 hours). ------influenza vaccine (4 yr+)(PF) (FLUCELVAX QUAD) inj ection 0.5*#[id number] Admin Amount: 0.5 mL Ordered Dose: 0.5 mL Route: IntraMUSCular Freq: PRIOR TO DISCHARGE Start Date: 03/30/16 No administration times (back 96 hours, ahead 96 hours). ------oxyCODONE-acetaminophen (PERCOCET) 5-325 mg per tablet 1 Tab #[id number] Admin Amount: 1 Tab Ordered Dose: 1 Tab Route: Oral Freq: NOW Start Date: 09/07/17 No administration times (back 96 hours, ahead 96 hours). ------barium sulfate (READICAT) 2.1 % (w/v), 2.0 % (w /w) oral suspension 9*#[id number] Admin Amount: 900 mL Ordered Dose: 900 mL Route: Oral Delgado q: RAD ONCE Start Date: 10/15/17 No administration times (back 96 hours, ahead 96 hours). ------iopamidol (ISOVUE 300) 61 % contrast injection 100 mL #[id number] Admin Amount: 100 mL Ordered Dose: 100 mL Route: IntraVENous Freq: RAD ONC E Start Date: 10/15/17 No administration times (back 96 hours, ahead 96 hours).Maxwell Bray MR#: [id number] * Rm: 441-01Ht: 5' 5.75" Wt: 300 lb Code: Full Code Iso:Diagnosis:Encephalopathy acute [G93.40]Allergies: No Known Allergies -------- Current as of: 12/05/191806 NB=New Bag --risperiDONE (RisperDAL m-tabs) disintegrating tablet 1 mg #[id number] Admin Amount: 1 Tab (1 x 1 mg Tab) Ordered Dose: 1 mg Route: Oral Freq: ONCE Start Date: 12/24/17 No administration times (back 96 hours, ahead 96 hours). ------ALPRAZolam (XANAX) tablet 2 mg #[id number] Admin Amount: 4 Tab (4 x 0.5 mg Tab) Ordered Dose: 2 mg Route: Ora l Freq: NOW Start Date: 12/24/17 No administration times (back 96 hours, ahe ad 96 hours). ------lamoTRIgine (LaMICtal) tablet 100 mg #[id number] Admin Amount: 1 Tab (1 x 100 mg Tab) Ordered Dose: 100 mg Route: Oral Delgado q: ONCE Start Date: 12/24/17 No administration times (back 96 hours, ahead 96 hours). ------OLANZapine (ZyPREXA zydis) disintegrating tablet 5 mg #[id number] Admin Amount: 1 Tab (1 x 5 mg Tab) Ordered Dose: 5 mg Route: Oral [place]gado q: ONCE Start Date: 12/25/17 No administration times (back 96 hours, ahead 96 hours). ------LORazepam (ATIVAN) tablet 2 mg #[id number] Admin Amount: 4 Tab (4 x 0.5 mg Tab) Ordered Dose: 2 mg Route: Ora l Freq: NOW Start Date: 12/25/17 No administration times (back 96 hours, e ad 96 hours). ------LORazepam (ATIVAN) injection 1 mg #[id number] Admin Amount: 0.5 mL = 1 mg of 2 mg/mL Ordered Dose: 1 mg Route: Int TrevorENous Freq: NOW Start Date: 12/25/17 No administration times (back 96 hours, e ad 96 hours). ------barium sulfate (EZ PAQUE) 96 % (w/w) contrast suspension 17 6 g #[id number] Admin Amount: 176 g Ordered Dose: 176 g Route: Oral Freq: RAD ONCE Start Date: 08/02/18 No administration times (back 96 hours, ahead 96 hours). ------barium sulfate (EZ PAQUE) 96 % (w/w) contrast s uspension 176 g #[id number] Admin Amount: 176 g Ordered Dose: 176 g Route: Oral Delgado q: RAD ONCE Start Date: 08/02/18 No administration times (back 96 hours, ahead 96 hours).Luisito Maxwell donovan MR#: [id number] * Rm: 441-01Ht: 5' 5.75" Wt: 300 lb Cod e: Full Code Iso:Diagnosis:Encephalopathy acute [G93.40]Allergies: No Known Allergies -------- Current as of: 12/05/19 180 NB=New Bag --aspirin chewable tablet 162 mg #[id number] Admin Amount: 2 Tab (2 x 81 mg Tab) Ordered Dose: 162 mg Route: Oral Freq: NOW Start Date: 08/10/19 No administration times (back 96 hours, ahead 96 hours). ------0.9% sodium chloride infusion 1,000 mL #[id number] Admin Amount: 1,000 mL Ordered Dose: 1,000 mL Route: IntraVENous Freq: ONC E Start Date: 08/16/19 Rate: 1,000 mL/hr Duration: No administration ti mes (back 96 hours, ahead 96 hours). ------methylPREDNISolone (PF) (Solu-MEDROL) injection 125 mg #[id number] Admin Amount: 2 mL = 125 mg of 125 mg/2 mL Ordered Dose: 125 mg Route: Int raVENous Freq: NOW Start Date: 08/16/19 No administration times (back 96 hours, ahe ad 96 hours). ------aspirin chewable tablet 162 mg #[id number] Admin Amount: 2 Tab (2 x 81 mg Tab) Ordered Dose: 162 mg Route: Oral Delgado q: NOW Start Date: 08/16/19 No administration times (back 96 hours, ahead 96 hours). ------haloperidoL (HALDOL) tablet 5 mg #[id number] Admin Amount: 1 Tab (1 x 5 mg Tab) Ordered Dose: 5 mg Route: Oral Delgado q: ONCE Start Date: 10/30/19 No administration times (back 96 hours, ahead 96 hours). ------cefTRIAXone (ROCEPHIN) 1 g in 0.9% sodium chloride (MBP/ADV) 50 m L M*#[id number] Admin Amount: 1 g Ordered Dose: 1 g Route: IntraVENous Freq: NOW Start Date: 12/05/19 Rate: 100 mL/hr Duration: 30 Minutes Administration linda es (back 96 hours, ahead 96 hours): 12/05/19: 1428NB -----0.9% sodium chloride infusion #[id number] Ordered Dose: 125 mL/hr Route: IntraVENous Freq: CONTINUOUS Start Date: 12/05/19 Rate: 125 mL/hr Duration: Administration times (back 96 hours, ahead 96 hours): 12/05/19: 1408NBMaxwell Bray MR#: [id number] * Rm : 441-01Ht: 5' 5.75" Wt: 300 lb Code: Full Code Iso:Diagnosis:Encephalopathy acute [G93. 40]Allergies: No Known Allergies -------- Current as of: 12/05/19 1807 NB=New Bag --enoxaparin (LOVENOX) injection 40 mg #[id number] Admin Amount: 0.4 mL = 40 mg of 40 mg/0.4 mL Ordered Dose: 40 mg [place]: SubCUTAneous Freq: EVERY 24 HOURS Start Date: 12/05/19 Administration times (back 96 h [facility] 96 hours): 12/05/19: 209912/06/19: 209912/07/19: 209912/08/19: 2099 ---furosemide (LASIX) injection 20 mg #[id number] Admin Amount: 2 mL = 20 mg of 10 mg/mL Ordered Dose: 20 mg [place]: IntraVENous Freq: ONCE Start Date: 12/05/19 Administration times (back 96 hours, [facility] 96 hours): 12/05/19: 1449 ED Current OP [...] With:Ritika Canas MDDetails:Comments:Contact Info:[address] MOBPaulinafferrussell [id number] Name Value Range Interpretation Code Description Data Melani rce(s) Supporting Document(s ) ID Date Data Source [id number] 12/05/2019 04:36:09 PM EDT [facility] The history is provided by the [...] of morbidity or mortality cardiac cath at [facility] approx 6-8 months ag o Other unknown [...] week Gets together: Once a week Attends alevism service: More than 4 times per year [...] QTC Calculation (Bezet) 515 ms Calculated P [place] 40 degrees Calculat ed R [place] 41 degrees Calculated T [place] 147 degrees Diagnosis Sinus tachycardiaProb able left [...] Time: 12/05/19 12:38 PMResult Value Ref Range [place] level 1.53 (HH) 0.6 - 1.2 MMOL/LLACTIC ACID Collection Time: 12/04 12:40 PMResult Value Ref Range Lactic acid 1.1 0.4 - 2.0 MMOL/LEKG:Sinus tachy cardia at 100 BPM, normal axis, nothing acute.Interpreted by Julio Manzo MD11:2 0 AM monitor and storage bin tender reading shows sinus tachycardia at 100 BPM. [...] cardiac monitoring, CXR, and head CT. Will news production assistant ocephin, IV fluids, and oxygen. Will consult [...] Supporting Document(s ) ID Date Data Source [id number] 12/05/2019 04:05:06 PM EDT [facility] [address] [place] [address] [id number] CONSULT NOTEPatient: Maxwell Bray Se x: male [...] or sensory fuentes es. Lab significant of [place] 1.53 and elevatedliver enzymes. Neurology consult ed for encephalopathy/drug adverse reaction.Past Medical History:Diagnosis Date Other unknown and unspecified cause of morbidity or mortality cardiac cath at [facility] approx 6-8 months ago Other [...] QTC Calculation (Bezet) 515 ms Calculated P [place] 40 degrees Calculated R [place] 41 degrees Calculated T [place] 147 degrees Diagnosis Sinus tachycardiaProbable left atrial [...] Time: 12/05/19 12:38 PMResult Value Ref Range [place] level 1.53 (HH) 0.6 - 1.2 MMOL/LLACTIC [...] QTC Calculation (Bezet) 515 ms Calculated P [place] 40 degrees Calculat ed R [place] 41 degrees Calculated T [place] 147 degrees Diagnosis Sinus tachycardiaProb able left [...] ulder M79.2 Seizure disorder (HCC) G40.909 Spells [id number] Severe obesity (HCC) E66 .01 Depression F32.9 Anxiety F41.9 Bipolar disorder (HCC) F31.9 Depressive disorde r F32.9 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 Seizure.Plan: Mri Brain Ammonia Monitor lithium level daily EEG - 24 hrs Seizure precautionsPaulson Gerald Flores 2019 3:19 [id number] Name Value Range Interpretation Code Description Data Melani rce(s) Supporting Document(s ) ID Date Data Source [id number] 12/05/2019 03:37:45 PM EDT [facility] sbar-q given to Ev HERNANDEZ RNAwaiting tr ansport to floor Name Value Range Interpretation Code Description Data Melani rce(s) Supporting Document(s ) ID Date Data Source [id number] 12/05/2019 03:29:57 PM EDT [facility] sbar-q given to Sheri UGALDE on floor Name Value Range Interpretation Code Description Data [facility] Supporting Document(s ) ID Date Data Source [id number] 12/05/2019 03:28:02 PM EDT [facility] History & PhysicalBrian Anam Bray is [...] h igh dose amytriptylene 200 mg nightly, [place], andVraylar 6 mg. :[place] level on prior admission therapeutic. Patient's wifecontactedthis [...] of morbidity or mortality cardiac cath at [facility] approx 6-8 months ag o Other unknown [...] week Gets together: Once a week Attends alevism service: More than 4 times per year [...] Calculati on (Bezet) 515 ms Calculated P [place] 40 degrees Calculated R [place] 41 degrees Elena culated T [place] 147 degrees Diagnosis Sinus tachycardiaProbable left atrial [...] Time: 12/05/19 12:38 PMResult Value Ref Range [place] level 1.53 (HH) 0.6 - 1.2 MMOL/LLACTIC ACID Collection Time: 12/04 12:40 PMResult Value Ref Range Lactic acid 1.1 0.4 - 2.0 MMOL/All lab results for the last 24 hours reviewed. Serun [place] level toxicAssessment/PlanPrinci pal Problem: Adverse drug reaction, initial encounter (12/05/2019) LithiumActive Prob lems: Encephalopathy acute (12/05/2019) Jiu-rmez-mllgybf adverse reaction to med ication (12/05/2019)Neuro, and psych evaluation, hydrationGeorge MD Corey Name Value Range Interpretation Code Description Data Melani rce(s) Supporting Document(s ) ID Date Data Source [id number] 12/06/2019 12:36:10 PM EDT [facility] Name Value Range Interpretation Description Data Sup porting Code Source(s) Document(s ) Service comment [facility] Bacteria [facility] identified in [facility] Unspecified [facility] specimen by Culture ID Date Data Source [id number] 12/05/2019 04:18:26 PM EDT [facility] Name Value Range Interpretation Description Data Sup porting Code Source(s) Document(s ) Color of Urine YEL Abnormal (applies [facility] - to non-numeric Good results) [facility] Appearance of CLEAR Abnormal (applies [facility] - Urine to non-numeric Good results) [facility] Specific gravity 1.033 1.003-1. Above high normal [facility] - of Urine by 030 Good Refractometry [facility] pH of Urine by 5.5 4.6-8.0 [facility] - Test strip [facility] Protein 30 mg/dL NEG Abnormal (applies [facility] - [Mass/volume] in to non-numeric Good Urine by Test results) [facility] Glucose NEG [facility] - [Mass/volume] in Good Urine by [facility] Automated test Hospital strip Ketones 15 mg/dL NEG Abnormal (applies [facility] - [Presence] in to non-numeric Good Urine by results) [facility] Automated test [facility] strip Bilirubin.total NEG Abnormal (applies [facility] - [Presence] in to non-numeric Good Urine results) [facility] Hemoglobin NEG [facility] - [Presence] in Good Urine by Test [facility] Urobilinogen 1.0 0.2-1.0 [facility] - [Presence] in EU/dL Good Urine by [facility] Automated test Hospital strip Nitrite NEG [facility] - [Presence] in Good Urine by [facility] Automated test Hospital strip Leukocyte NEG [facility] - esterase Good [Presence] in [facility]regational Urine by Hospital Automated test strip Leukocytes 0-5 [facility] - [Presence] in Good Urine sediment [facility] by Light [facility] microscopy Erythrocytes 0-2 [facility] - [#/area] in Good Urine sediment [facility] by [facility] high power field Epithelial cells 0-10 [facility] - [#/area] in Good Urine sediment [facility] by [facility] high power field Bacteria NONE Abnormal (applies [facility] - [Presence] in to non-numeric Good Urine sediment results) [facility] microscopy ID Date Data Source [id number] 12/05/2019 03:26:35 PM EDT [facility] Name Value Range Interpretation Description Data Sup porting Code Source(s) Document(s ) Bilirubin NEG [facility] - Good [Presence] in [facility] Urine by Hospital Confirmatory method ID Date Data Source [id number] 12/05/2019 02:22:27 PM EDT [facility] I spoke to Dr. Canas regarding Observation Status. Dr. Canas said patient will bemade In Patient Status today. Name Value Range Interpretation Code Description Data Melani rce(s) Supporting Document(s ) ID Date Data Source [id number] 12/05/2019 02:03:27 PM EDT [facility] SW/Psych Screener attempted to meet with Pt for MH evaluation. Pt was foundlying on stretcher with his eyes open, staring at the wall. Lead Cytogenetic Technologist knows this Ptfrom previous admission to the medical floor. When ask ed if Pt rememberedwriter, Pt appeared confused, but said he did. Pt stated he fell today, doesn'tremember how he was brought to the hospital. Pt appeared to be searching for hiswords and was having difficulty speaking. Pt unclear of where he is, stating"[place]" when asked where he was and "[place]" when asked what month it was. Whenasked if Pt was exhibiting any feelings of S/I, H/I or A/V Hallucinatio ns, Ptresponded with, "No," and confirmed he has been compliant with his psychiatricm edications. Lead Cytogenetic Technologist conferred with ER Attending, Dr. Manzo, who states that Ptwi ll most likely be medically admitted at this time.Krystina Centeno, [facility], [facility] Name Value Range Interpretation Code Description Data Melani rce(s) Supporting Document(s ) ID Date Data Source [id number] 12/05/2019 12:53:37 PM EDT [facility] CT HEAD W/O CONTRASTPRIOR: Multiple: Mos [...] Supporting Document(s ) ID Date Data Source [id number] 12/05/2019 01:31:37 PM EDT [facility] Name Value Range Interpretation Description Data Sup porting Code Source(s) Document(s ) Lactate 1.1 0.4-2.0 [facility] - Good [Moles/volu MMOL/L [facility]] in Hospital Serum or Plasma ID Date Data Source [id number] 12/10/2019 05:19:22 AM EDT [facility] Name Value Range Interpretation Description Data Sup porting Code Source(s) Document(s ) Service comment [facility] Bacteria [facility] identified in [facility] Unspecified Hospital specimen by Culture ID Date Data Source [id number] 12/05/2019 02:14:34 PM EDT [facility] Name Value Range Interpretation Description Data Sup porting Code Source(s) Document(s ) [place] 1.53 0.6-1.2 Above upper panic [facility] - Good [Moles/volu MMOL/L limits [facility]] in Hospital Serum or Plasma CALLED TO AND READ BACK BYSUSI GAMBLE 1414 [facility]05[facility] Date Data Source [id number] 12/05/2019 01:31:37 PM EDT [facility] Name Value Range Interpretation Description Data Sup porting Code Source(s) Document(s ) Troponin 0.00-0.05 [facility] - Good I.cardiac [facility] [Mass/volume Hospital ] in Serum or Plasma [...] to 1.50 ng/mL ID Date Data Source [id number] 12/05/2019 01:31:37 PM EDT [facility] - Good [facility] Hospital Name Value Range Interpretation Description Data Sup porting Code Source(s) Document(s ) Sodium 134 136-145 Below low normal [facility] [Moles/volume] mmol/L [facility] Serum or Hospital Plasma Potassium 3.5 3.5-5.1 [facility] [Moles/volume] mmol/L [facility] in Serum or Hospital Plasma Chloride 104 98-107 [facility] [Moles/volume] mmol/L [facility] Serum or [facility] Plasma Carbon 26 21-32 [facility] dioxide, total mmol/L [facility] [Moles/volume] Hospital in Serum or Plasma Anion gap in 7 mmol/L 10-20 Below low normal [facility] - Go od Serum or [facility] Hospital Glucose 127 74-106 Above high normal [facility] [Mass/volume] mg/dL [facility] Serum or [facility] Plasma Urea nitrogen 21 mg/dL 7-18 Above high normal [facility] [Mass/volume] [facility] in Serum or Hospital Plasma Creatinine 0.94 0.70-1.3 [facility] [Mass/volume] mg/dL 0 [facility] in Serum or Hospital Plasma Glomerular >60 [facility] filtration [facility] rate/1.73 sq M Hospital predicted among blacks [Volume Rate/Area] in Serum or Plasma by Creatinine-bas ed formula (MDRD) Glomerular >60 [facility] - Good filtration [facility] rate/1.73 sq M Hospital predicted among non-blacks [Volume Rate/Area] in Serum or Plasma by Creatinine-bas ed formula (MDRD) (NOTE)Estimated GFR is calculated using the Modification of Diet in RenalDisease (MDRD) Study equation, reported for both Americans(GFRAA) and non- Americans (GFRNA), and normalized to 1.7 7h1lwyr surface area. The physician must decide which [...] normal [facility] Serum or Plasma [facility] ital Bilirubin.total 0.9 mg/dL 0.2-1.0 [facility] [Mass/volume] in Serum or [facility] Plasma Alanine aminotransferase 34 U/L 13-61 [facility] [Enzymatic activity/volume] [facility] in Serum or Plasma Aspartate aminotransferase 47 U/L 15-37 Above high [facility] - [facility] [Enzymatic activity/volume] normal [facility] in Serum or Plasma by With P-5'-P Alkaline phosphatase 171 U/L 45-117 Above high [facility] - Good [Enzymatic activity/volume] normal [facility] in Serum or Plasma Protein [Mass/volume] in 7.5 g/dL 6.4-8.2 [facility] Good Serum or Plasma [facility] ital Albumin [Mass/volume] in 3.8 g/dL 3.5-4.7 [facility] Serum or Plasma by [facility] ostal Bromocresol purple (BCP) dye binding method Globulin [Mass/volume] in 3.7 g/dL 1.7-4.7 [facility] Serum by calculation [facility] Albumin/Globulin [Mass 1.0 0.7-2.8 [facility] - Good Ratio] in Serum or Plasma [facility] ID Date Data Source [id number] 12/05/2019 01:31:37 PM EDT [facility] Name Value Range Interpretation Description Data Sup porting Code Source(s) Document(s ) Magnesium 2.9 mg/dL 1.6-2.6 Above high normal [facility] [Mass/volume] [facility] in Serum or [facility] Plasma ID Date Data Source [id number] 12/05/2019 01:20:04 PM EDT [facility] Name Value Range Interpretation Description Data Sup porting Code Source(s) Document(s ) Prothrombin 10.6 sec 9.4-11.1 [facility] time (PT) [facility] INR in 1.0 0.8-1.2 [facility] Platelet poor [facility] plasma by Hospital Coagulation assay ID Date Data Source [id number] 12/05/2019 01:07:21 PM EDT [facility] - [facility] Name Value Range Interpretation Description Data Sup porting Code Source(s) Document(s ) Leukocytes 12.4 4.8-10.6 Above high normal [facility] - [#/volume] in K/uL Good Blood by [facility] Automated count [facility] Erythrocytes 5.03 4.70-6.0 [facility] - [#/volume] in M/uL 0 Good Blood by [facility] Automated count [facility] Hemoglobin 15.4 14.0-18. [facility] - [Mass/volume] in g/dL 0 [facility] Blood [facility] Hematocrit 45.8 % 42.0-52. [facility] - [Volume 0 Good Fraction] of [facility] Blood by Hospital Automated count Erythrocyte mean 91.1 FL 81.0-94. [facility] - corpuscular 0 Good volume [Entitic [facility] volume] by Hospital Automated count Erythrocyte mean 30.6 PG 27.0-35. [facility] - corpuscular 0 Good hemoglobin [facility] [Entitic mass] Hospital by Automated count Erythrocyte mean 33.6 30.7-37. [facility] - corpuscular g/dL 3 Good hemoglobin [facility] concentration [facility] [Mass/volume] by Automated count Erythrocyte 12.9 % 11.5-14. [facility] - distribution 0 Good width [Ratio] by [facility] Platelets 164 K/uL 130-400 [facility] - [#/volume] in Good Blood by [facility] Automated [facility] Platelet mean 9.5 FL 9.2-11.8 [facility] - volume [Entitic Good volume] in Blood [facility] by Automated Hospital count Nucleated 0.0 PER 0 [facility] - erythrocytes/100 100 WBC Good leukocytes [facility] [Ratio] in Blood Hospital Nucleated 0.00 0.0-0.01 [facility] - erythrocytes K/uL Good [#/volume] in [facility] Segmented 80 % 48.0-72. Above high normal [facility] - neutrophils/100 0 Good leukocytes in [facility] Lymphocytes/100 8 % 18.0-40. Below low normal [facility] - leukocytes in 0 Good Blood [facility] Monocytes/100 10 % 2.0-12.0 [facility] - leukocytes in [facility] Eosinophils/100 1 % 0.0-7.0 [facility] - leukocytes in [facility] Basophils/100 0 % 0.0-3.0 [facility] - leukocytes in [facility] Immature 0 % 0-0.5 [facility] - granulocytes/100 Good leukocytes in [facility] by [facility] Automated count Segmented 10.0 2.3-7.6 Above high normal [facility] - neutrophils K/UL Good [#/volume] in [facility] Lymphocytes 1.0 K/UL 0.9-4.2 [facility] - [#/volume] in [facility] Monocytes 1.2 K/UL 0.1-1.7 [facility] - [#/volume] in [facility] Eosinophils 0.1 K/UL 0.0-1.0 [facility] - [#/volume] in [facility] Basophils 0.0 K/UL 0.0-0.4 [facility] - [#/volume] in [facility] Immature 0.1 K/UL 0.0-0.17 [facility] - granulocytes Good [#/volume] in [facility] Automated count Differential [facility] - cell count [facility] ID Date Data Source [id number] 12/10/2019 05:19:23 AM EDT [facility] Name Value Range Interpretation Description Data Sup porting Code Source(s) Document(s ) Service comment [facility] Bacteria [facility] identified in [facility] specimen by Culture ID Date Data Source [id number] 12/05/2019 12:24:35 PM EDT [facility] PELVIS one view.History: TraumaThe study is suboptimal due to the patient's body habitus.There is no evidence of fracture , dislocation, subluxation, bone erosion orarthritis.IMPRESSION: Grossly normal s tudy. Signing date/time: 12/05/2019 12:24 PMSigned by: CURTIS VARMA Name Value Range Interpretation Code Description Data Melani rce(s) Supporting Document(s ) ID Date Data Source [id number] 12/05/2019 12:23:11 PM EDT [facility] CHEST 1 view (s)HISTORY: Chest pain.COMP [...] Supporting Document(s ) ID Date Data Source [id number] 12/05/2019 11:34:39 AM EDT [facility] BIBA for fall in the middle of the night while going to bathroomC/p left hip pain Name Value Range Interpretation Code Description Data Melani rce(s) Supporting Document(s ) ID Date Data Source [id number] 12/05/2019 11:21:27 AM EDT [facility] Please enter the current weight for this patient in [facility]. Thank you. Name Value Range Interpretation Code Description Data Melani rce(s) Supporting Document(s ) ID Date Data Source [id number] 11/23/2019 02:02:47 PM EDT [facility] Discharge SummaryPatient: Maxwell Mendieta Xiao mackey Sex: [...] E66.01ICD-9-CM: 278.01 07/19/2018 - Present Spells ICD-10-CM: [id number]: IMO00 01 04/08/2016 - Present Seizure disorder [...] tr eated with parenteral hydration with benefit g7xistnsweytcmkvpfg responses. Of note i s fact that patient was scheduled to begin ECTtreatment for depression when Covid 1 9 pandemic curtained this plan.Consults: PsychiatrySignificant Diagnostic Studies : labs: microbiology: , radiology: and cardiacgraphics:Discharge Medications: @DISCHARGEMEDLIST@Activity: Activity as toleratedDiet: Resume previous dietWound Care: None neededFollow-up: This examiner to follow in officeRitika Canas MD Name Value Range Interpretation Code Description Data [facility](s) Supporting Document(s ) ID Date Data Source [id number] 11/03/2019 09:41:35 PM EDT [facility] Verbal shift change report given to , RN (oncoming nurse) by Scott Beverly RN (offgoing nurse). Report included the fo llowing information SBAR, Kardex,Intake/Output, MAR and Recent Res ults. Name Value Range Interpretation Code Description Data [facility](s) Supporting Document(s ) ID Date Data Source [id number] 11/03/2019 03:34:07 PM EDT [facility] Per psych note, CM to confirm patient ap pt with psychiatristCall to Dr Mateo Méndez office # [phone], office closedPati ent aware of # to call to make his own appt, psychiatry info placed on [facility] ent states his will be coming [...] Network: Lives with Spouse, Own Home( [place] ,[phone])Confirm Follow Up Transport: FamilyThe Patient and/or Patient [...] Supporting Document(s ) ID Date Data Source [id number] 11/03/2019 02:45:48 PM EDT [facility] PHYSICAL THERAPY TREATMENTPatient: Maxwell Bray (49 [...] Supporting Document(s ) ID Date Data Source [id number] 11/03/2019 01:09:08 PM EDT [facility] General Daily Progress NoteAdmit Date: [...] past 8 hrs: BP Temp Pulse Resp CxC82411/03/19 0752 115 /76 97.6 F (36.4 C) [...] Supporting Document(s ) ID Date Data Source [id number] 11/03/2019 10:52:30 AM EDT [facility] S/O patient has seen for follow up via V ide[facility] . He is doing much better. Hedenies any auditory or visual hallucination any mor eHe has no suicidal or homicidal thoughtsHe reports that he sees Dr. marie every ot her weeksPt wants to follow up with Dr. Marie after dischargePlan continue on a ll current psychotropic medications Requesting registered nurse hh case manager to confirm his a ppointment with Dr. mariebefore he discharged Please re consult if n eeded Name Value Range Interpretation Code Description Data Melani rce(s) Supporting Document(s ) ID Date Data Source [id number] 11/03/2019 07:12:34 AM EDT [facility] Bedside and Verbal shift change report cristi bolanos to Meño Rose RN (oncomingnurse) by June Ochoa RN (offgoing nurse). Repor t included the followinginformation SBAR, Kardex, Intake/Output, MAR, Recent Resul ts and Med Rec Status. Name Value Range Interpretation Code Description Data Melani rce(s) Supporting Document(s ) ID Date Data Source [id number] 11/02/2019 11:18:25 PM EDT [facility] Problem: Falls - Risk ofGoal: *Absence [...] Supporting Document(s ) ID Date Data Source [id number] 11/02/2019 07:34:02 PM EDT [facility] Bedside shift change report given to GILLIAN KEATING (oncoming nurse) by Meño Rose(offgoing nurse). Report included the following information SBAR, Kardex andIntake/Output. Name Value Range Interpretation Code Description Data [facility] rce(s) Supporting Document(s ) ID Date Data Source [id number] 11/02/2019 05:14:50 PM EDT [facility] Telehealth Progress NotePursuant to the emergency [...] [] Telephone [x] VideoconferenceDate: 11/02/2019Account Franny mber: [id number]: Maxwell Robin [employer] Joe PROGRESS NOTE:Coordinated treatment team rounds conducted with psychiatrist, patient, nursesand/or social service liaison present ; dis cussions held with registered nurse hh case manager and/or familymembers; Chart reviewed in full in cluding supervisor home energy consultant notes, ancillary staffnotes, vitals and labs in [facility] EMR reviewed in full.SUBJECTIVE: Pt seen for first time on Video with my TERRY Mendy And RN , hereports less hallucinations , as they are still there in the morning But overall better since got back on vraylar told me was scheduled for [facility] but due to elective , it [...] past 8 hrs: Temp Pulse Resp BP KmK028/20 1546 98.3 F (36.8 C) 84 18 [...] (LOVENOX) injection 40 mg 40 mg SubCUTAneous [id number] Medications:C urrent Facility-Administered MedicationsMedication Dose Route Frequen [...] ENOX) injection 40 mg 40 mg SubCUTAneous D60TGFKDREGZLC/PLAN:Continue current kalie atment as pt is stabalizingPatient [...] Supporting Document(s ) ID Date Data Source [id number] 11/02/2019 03:02:33 PM EDT [facility] General Daily Progress NoteAdmit Date: [...] (LOVENOX) injection 40 mg 40 mg SubCUTAneous L59OVmdxtwqyj:Patient Vitals for the past 8 hrs: BP [...] Sagittal and coronal reconstruction was performed.Uti lizing research center director algorithm the examination was performed to optimizeimaging [...] Name Value Range Interpretation Code Description [facility] ) ID Date Data Source [id number] 11/02/2019 07:48:14 AM EDT [facility] Verbal shift change report given to Jody wells RN (oncoming nurse) by Juliane UGALDE (offgoing nurse). Report included the following information SBAR,Kardex, Intake/Output, MAR and Recent Results Name Value Range Interpretation Code Description Data [facility] Supporting Document[facility] ) ID Date Data Source [id number] 11/02/2019 05:41:52 AM EDT [facility] Patient AOX3 with periodic confusion. In bed watching TV. All med's given asordered by , tolerated well. Fall precaution m easures reinforced. Call bellwithin reach, bed in low position. Has urinal and comm ode at bedside. Voices nocomplaint at this time. Will continue to monitor pt. Name Value Range Interpretation Code Description Data [facility] Supporting Document[facility]s ) ID Date Data Source [id number] 11/01/2019 08:46:30 PM EDT [facility] Problem: Falls - Risk ofGoal: *Absence [...] Supporting Document(s ) ID Date Data Source [id number] 11/01/2019 08:00:09 PM EDT [facility] Verbal shift change report given to Ly vitale RN (oncoming nurse) by SUSI Palacio (offgoing nurse). Report included the following information SBAR,Intake/Output, MAR and Recent Results. Name Value Range Interpretation Code Description Data Melani rce(s) Supporting Document(s ) ID Date Data Source [id number] 11/01/2019 03:49:42 PM EDT [facility] Adult Progress NoteDate: 11/01/2019Account Number: [id number]: Maxwell Mendieta TrimbleDiagnosis: History of mood and [...] On e Bipolar disorder with severe depression ([facility]) 10/29/2019 Mixed anxiety and depr essive disorder 09/04/2019 Vitamin D deficiency 09/04/2019 Anxiety 0 Bipolar disorder ([facility]) 07/21/2019 Depressive disorder 07/21/2019 Status p ost gastric bypass for obesity 07/21/2019 Morbid obesity ([facility]) 07/21/2019 Severe obesity ([facility]) 07/19/2018 Spells 04/08/2016 Seizure disorder ([facility]) 04/30/2014 Insom kacey 11/04/2013 H/O gastric [...] (LOVENOX) injection 40 mg 40 mg SubCUTAneous Z95QTel following information was reviewed and discussed: Patient [...] Supporting Document(s ) ID Date Data Source [id number] 11/01/2019 02:42:08 PM EDT [facility] General Daily Progress NoteAdmit Date: [...] past 8 hrs: BP Temp Pulse Resp CuU52811/01/19 0715 101/67 98 F (36.7 C) 70 [...] Sagittal and coronal reconstr uction was performed.Utilizing research center director algorithm the examination was performed to optimizeimaging [...] interstitial markings arefelt to reflect vascular cross cut sawyer 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 Repeat PA andlateral views the chest are advised i f there is clinical concern for pneumoniaor congestive failure.Assessment:Active Pro blems: Bipolar disorder with severe depression (HCC) (10/29/2019)Plan:Improvin g status Name Value Range Interpretation Code Description Data [facility](s) Supporting Document(s ) ID Date Data Source [id number] 11/01/2019 07:08:12 AM EDT [facility] Verbal shift change report given to Chandrakant Albert RN (oncoming nurse) byMelanie Hoffmann RN (offgoing nurse). Report incl uded the following informationSBAR, Kardex, Intake/Output, MAR and Recent Results. Name Value Range Interpretation Code Description Data [facility](s) Supporting Document(s ) ID Date Data Source [id number] 10/31/2019 07:59:03 PM EDT [facility] Verbal shift change report given to Shreya adrian RN (oncoming nurse) by SUSI Palacio (offgoing nurse). Report included the following information SBAR,Kardex, Intake/Output, MAR and Recent Results. Name Value Range Interpretation Code Description Data [facility](s) Supporting Document(s ) ID Date Data Source [id number] 10/31/2019 05:09:32 PM EDT [facility] Telehealth ConsultationPursuant to the e mergency [...] [] Telephone [x] VideoconferenceSubjective:Patient: Maxwell BrayN #: [id number]: [id number]: 49 y.o. Sex: maleAdm it Date: 10/29/2019Attending: [...] week Gets together: Once a week Attends alevism service: More than 4 times per year [...] morbidity or mortal ity cardiac cath at [facility] approx 6-8 months ago Other unknown and [...] past 8 hrs: BP Temp Pulse Resp VgF88910/31/19 0754 120/60 97.2 F (36.2 C) 70 20 95 %MENTA L STATUS EXAM:FINDINGS WITHIN NORMAL LIMITS (WNL) UNLESS OTHERWISE STATED BELOW:Sens orium NCSG9Dhtexjwqg Well relatedAppearance: OverweightMotor Behavior: Not examined Speech: [...] Supporting Document(s ) ID Date Data Source [id number] 10/31/2019 04:37:18 PM EDT [facility] [place] [address] [place], [place] [address]XYVQLXR: MAXWELL BRAYMRN: [id number]: [id number]#: [id number] DATE: 10/29/2019 CONSULTATIONHISTORY OF PRESENT ILLNESS: The [...] and Klonopin.PAST MEDICAL HISTORY: Cardiac cath at [facility] six to eight months ago, concussions,periodic disorientation, [...] back to his psychiatrist in the commu [facility].Cognitively,he seems to be fair. His memory [...] RONAL AGUIRRE, MDDD: 10/30/2019 14:44:41/BR /[id number] / [id number] Name Value Range Interpretation Code Description Data Mel[facility] rce(s) Supporting Document(s ) ID Date Data Source [id number] 10/31/2019 01:47:36 PM EDT [facility] General Daily Progress NoteAdmit Date: [...] Supporting Document(s ) ID Date Data Source [id number] 10/31/2019 12:59:26 PM EDT [facility] physical Therapy TREATMENTPatient: Maxwell Bray (49 [...] Supporting Document(s ) ID Date Data Source [id number] 10/31/2019 07:10:46 AM EDT [facility] Bedside and Verbal shift change report g cici to Samy UGALDE (oncoming nurse)by Cristofer Valenzuela RN (offgoing nurse). Repo rt included the following information SBAR, Kardex, MARand Recent Results. Name Value Range Interpretation Code Description Data [facility] r[facility](s) Supporting Document(s ) ID Date Data Source [id number] 10/30/2019 11:27:14 PM EDT [facility] Problem: Falls - Risk ofGoal: *Absence [...] Supporting Document(s ) ID Date Data Source [id number] 10/30/2019 08:09:55 PM EDT [facility] Susi Garcia called as pt has [...] be ordered as non formulary also At [facility] Name Value Range Interpretation Code Description Data Melani rce(s) Supporting Document(s ) ID Date Data Source [id number] 10/30/2019 08:06:30 PM EDT [facility] Telephoned Dr. Oc tompkins pt's c/o new sy mptoms of hallucinations. Orderedreceived, relayed to RN, SUSI Marroquin on operations supervisor 2nd shift Name Value Range Interpretation Code Description Data Melani rce(s) Supporting Document(s ) ID Date Data Source [id number] 10/30/2019 08:01:35 PM EDT [facility] Verbal shift change report given to Cecilia wells (oncoming nurse) by Samy Albert RN (offgoing nurse). Report included the fo llowing information SBAR, ProcedureSummary, Intake/Output, MAR and Recent Results. Name Value Range Interpretation Code Description Data Melani rce(s) Supporting Document(s ) ID Date Data Source [id number] 10/30/2019 02:58:51 PM EDT [facility] Problem: Mobility Impaired (Adult and Pe [...] of morbidity or mortality cardiac cath at [facility] approx 6-8 months ago Other [...] Home: NoneCritical Behavior:Neurologic State: AlertOrientation Level: Oriented T3Uxyvazpuh: Appropriate for age attention/concentrationSafety/Judgement: Awareness of environmentSkin:Strength:Strength: [...] Supporting Document(s ) ID Date Data Source [id number] 10/30/2019 02:50:37 PM EDT [facility] Telehealth ConsultationPursuant to the e mergency [...] [] Telephone [] VideoconferenceSubjective:Patient: Maxwell BrayMRN #: [id number]: [id number]: 49 y.o. Sex: maleAdm it Date: 10/29/2019Attending: [...] Supporting Document(s ) ID Date Data Source [id number] 10/30/2019 02:06:26 PM EDT [facility] Care Management InterventionsPCP Verifie d by CM: YesPalliative Care Criteria Met (RRAT>21 & CHF Dx)?: NoMode of Transport at Discharge: Other (see comment)(family)Transition of Care Consu lt (CM Consult): Discharge PlanningPhysical Therapy Consult: NoOccupational Therapy Consult: NoSpeech Therapy Consult: NoCurrent Support Network: Lives with Spouse, Own Home( [place] [phone],[phone])Confirm Foll ow Up Transport: FamilyThe Patient and/or Patient Signal Person was Provided with a Choice of Providerand [...] home with his , is completely independent FLOOR SWEEPER, nohome DME. Patient normally works (pre-covid) and drives. CM dept roleexplained, patient is currently denying any HC or rehab needs and states hiswife will drive him home upon DC. PT eval is ordered and pending. CM dept laila lfollow if patient has any PT needs.CASE MANAGEMENT PSYCHOSOCIAL ASSESSMENTMaxwell Bray Admission Date: 10/29/2019MRN: [id number] of : 1970Current date: 10/30/2019DISCHARGE PLAN: homePatient Info rmation:Patients Preferred Name: Tim Arrived Via: StretcherTransferred [facility]: NoInformation Obtained From: [...] NoPCP: Ritika Canas MDAdmitting Provider: Cristi Canas MDAUG[facility]EC[facility] FLOOR SWEEPER: naPayor: Payor: [facility] HE[facility] / Plan: [facility] /Product Type: O /[facility] Payor: @[facility] HOSPITALGROUPNAME@Bipolar disorder with severe depression (HCC) [F 31.4]Bipolar disorder with severe depression (HCC) [F31.4]Patient Active Problem List Diagnosis Code H/O gastric bypass Z98.84 Insomnia G47.00 Neuropathic pain of surekha glover M79.2 Seizure disorder ([facility]) G40.909 Spells R68.89 Severe obesity ([facility]) E66. 01 Depression F32.9 Anxiety F41.9 Bipolar disorder ([facility]) F31.9 Depressive disorde r F32.9 Status post gastric bypass for obesity Z98.84 Morbid obesity ([facility]) E66 .01 Mixed anxiety and depressive [...] solving and planning: Notes:Adeq uate coping skills: Notes:Scientology/Cultural barriers: Notes:If unable to assess or n ot applicable: Notes:Suicide Assessment:Primary Diagnosis or Primary Complaint of an Emotional Behavior Disorder: NoPatient is Currently Experiencing Depr ession: NoSuicidal Ideation/Attempts: NoHomicidal Ideation/Attempts: NoAlcohol /Drug Intoxication: NoHallucinations/Delusions: NoPending, A ctive, or Temporary Group Home Orders: NoAggressive/Inappropriate Behavior: NoR eadmit Risk:Support Systems: Family member(s)Advanced Care Planning:Confirm Advance Directive: NoneDiscussed with the patient and all questions fully answered . He will call me ifany problems arise. Name Value Range Interpretation Code Description Data Melani rce(s) Supporting Document(s ) ID Date Data Source [id number] 10/30/2019 12:38:13 PM EDT [facility] General Daily Progress NoteAdmit Date: Hospital day: .tdSubjective:Patient markedly improved this am, speech now no rmal. Denies possibleinadvertent overdose of chronic meds. Accepting of psych consult . PT toevaluate. Claims symptoms of mild nausea. Meds reviewed claims to be takin gElavil G 150 mg HS ,Klonopin 1 mg twice a day, [place] 300 twice daily, Vraylar3 m g dailyCurrent [...] past 8 hrs: BP Temp Pulse Resp ApI66710/30/19 0727 (!) 130/96 98 F (36.7 C) [...] Supporting Document(s ) ID Date Data Source [id number] 10/30/2019 07:52:05 AM EDT [facility] Verbal shift change report given to Chandrakant nemarie RN (oncoming nurse) byJosemarlie RN (offgoing nurse). Report included the [facility] information SBAR,Kardex, Procedure Summary, Intake/Output, MAR and Recent R esults. Name Value Range Interpretation Code Description Data Melani rce(s) Supporting Document(s ) ID Date Data Source [id number] 10/30/2019 06:40:05 AM EDT [facility] Pt. AOX3, periodic confusion. Commode an d urinal at bedside. Seizure and fallprecaution measures in place. Voice s no complaint during shift . Name Value Range Interpretation Code Description Data Melani rce(s) Supporting Document(s ) ID Date Data Source [id number] 10/30/2019 07:29:12 AM EDT [facility] Name Value Range Interpretation Description Data Sup porting Code Source(s) Document(s ) Sodium 139 136-145 [facility] - Good [Moles/volume] mmol/L [facility] in Serum or Hospital Plasma Potassium 3.6 3.5-5.1 [facility] - [facility] [Moles/volume] mmol/L [facility] in Serum or Hospital Plasma Chloride 110 98-107 Above high normal [facility] - Good [Moles/volume] mmol/L [facility] in Serum or Hospital Plasma Carbon 24 21-32 [facility] - [facility] dioxide, total mmol/L [facility] [Moles/volume] Hospital in Serum or Plasma Anion gap in 9 mmol/L 10-20 Below low normal [facility] - Go od Serum or [facility] Plasma Hospital Glucose 96 mg/dL 74-106 [facility] - [facility] [Mass/volume] [facility] in Serum or Hospital Plasma Urea nitrogen 10 mg/dL 7-18 [facility] - [facility] [Mass/volume] [facility] in Serum or Hospital Plasma Creatinine 0.81 0.70-1.3 [facility] [Mass/volume] mg/dL 0 [facility] in Serum or Hospital Plasma Glomerular >60 [facility] - Good filtration [facility] rate/1.73 sq M Hospital predicted among blacks [Volume Rate/Area] in Serum or Plasma by Creatinine-bas ed formula (MDRD) Glomerular >60 [facility] - Good filtration [facility] rate/1.73 sq M Hospital predicted among non-blacks [Volume Rate/Area] in Serum or Plasma by Creatinine-bas ed formula (MDRD) Calcium 8.2 8.5-10.1 Below low normal [facility] - Good [Mass/volume] mg/dL [facility] in Serum or Hospital Plasma ID Date Data Source [id number] 10/30/2019 07:05:07 AM EDT [facility] Name Value Range Interpretation Description Data Sup porting Code Source(s) Document(s ) Leukocytes 4.8 K/uL 4.8-10.6 [facility] - [#/volume] in Good Blood by [facility] Automated count Hospital Erythrocytes 4.59 4.70-6.0 Below low normal [facility] - [#/volume] in M/uL 0 Good Blood by [facility] Automated count [facility] Hemoglobin 14.0 14.0-18. [facility] - [Mass/volume] in g/dL 0 Good Blood [facility] Hematocrit 42.7 % 42.0-52. [facility] - [Volume 0 Good Fraction] of [facility] Blood by Hospital Automated count Erythrocyte mean 93.0 FL 81.0-94. [facility] - corpuscular 0 Good volume [Entitic [facility] volume] by [facility] Automated count Erythrocyte mean 30.5 PG 27.0-35. [facility] - corpuscular 0 Good hemoglobin [facility] [Entitic mass] Hospital by Automated count Erythrocyte mean 32.8 30.7-37. [facility] - corpuscular g/dL 3 Good hemoglobin [facility] [Mass/volume] by Automated count Erythrocyte 13.3 % 11.5-14. [facility] - distribution 0 Good width [Ratio] by [facility] Automated count [facility] Platelets 159 K/uL 130-400 [facility] - [#/volume] in Good Blood by [facility] Automated count [facility] Platelet mean 8.6 FL 9.2-11.8 Below low normal [facility] - volume [Entitic Good volume] in Blood [facility] by Automated Hospital count Nucleated 0.0 PER 0 [facility] - erythrocytes/100 100 WBC Good leukocytes [facility] [Ratio] in Blood [facility] Nucleated 0.00 0.0-0.01 [facility] - erythrocytes K/uL Good [#/volume] in [facility] Blood [facility] Segmented 54 % 48.0-72. [facility] - neutrophils/100 0 Good leukocytes in [facility] Lymphocytes/100 32 % 18.0-40. [facility] - leukocytes in 0 [facility] Monocytes/100 9 % 2.0-12.0 [facility] - leukocytes in [facility] Eosinophils/100 5 % 0.0-7.0 [facility] - leukocytes in [facility] Basophils/100 1 % 0.0-3.0 [facility] - leukocytes in [facility] Immature 0 % 0-0.5 [facility] - granulocytes/100 Good leukocytes in [facility] by [facility] Automated count Segmented 2.6 K/UL 2.3-7.6 [facility] - neutrophils Good [#/volume] in [facility] Lymphocytes 1.5 K/UL 0.9-4.2 [facility] - [#/volume] in [facility] Monocytes 0.4 K/UL 0.1-1.7 [facility] - [#/volume] in [facility] Eosinophils 0.2 K/UL 0.0-1.0 [facility] - [#/volume] in [facility] Basophils 0.0 K/UL 0.0-0.4 [facility] - [#/volume] in [facility] Immature 0.0 K/UL 0.0-0.17 [facility] - granulocytes Good [#/volume] in [facility] Automated count Differential [facility] - cell count [facility] method [facility] ID Date Data Source [id number] 10/29/2019 07:40:21 PM EDT [facility] Verbal shift change report given to Wai rogers RN(oncoming nurse) by Elizabeth Meehan RN (offgoing nurse). Report included the fo llowing information SBAR, Kardex, EDSummary, Intake/Output, MAR and Recent Results. Name Value Range Interpretation Code Description Data Melani rce(s) Supporting Document(s ) ID Date Data Source [id number] 10/30/2019 06:54:22 PM EDT [facility] Name Value Range Interpretation Description Data Sup porting Code Source(s) Document(s ) Color of Urine YEL [facility] Appearance of CLEAR [facility] - Urine [facility] Specific gravity 1.015 1.003-1. [facility] - of Urine by 030 Good Refractometry [facility] pH of Urine by 6.0 4.6-8.0 [facility] - Test strip [facility] Protein NEG [facility] - [Mass/volume] in Good Urine by Test [facility] Glucose NEG [facility] - [Mass/volume] in Good Urine by [facility] Automated test Hospital strip Ketones NEG [facility] - [Presence] in Good Urine by [facility] Automated test Hospital strip Bilirubin.total NEG [facility] - [Presence] in Good Urine [facility] Hemoglobin NEG [facility] - [Presence] in Good Urine by Test [facility] Urobilinogen 1.0 0.2-1.0 [facility] - [Presence] in EU/dL Good Urine by [facility] Automated test Hospital strip Nitrite NEG [facility] - [Presence] in Good Urine by [facility] Automated test Hospital strip Leukocyte NEG [facility] - esterase Good [Presence] in [facility] Urine by Hospital Automated test strip ID Date Data Source [id number] 10/29/2019 06:14:12 PM EDT [facility] Spoke with to clarify meds..correct doses obtained Name Value Range Interpretation Code Description Data Melani rce(s) Supporting Document(s ) ID Date Data Source [id number] 10/29/2019 06:01:22 PM EDT [facility] Pt unsure of dose of Vraylar will call w berta Name Value Range Interpretation Code Description Data Melani rce(s) Supporting Document(s ) ID Date Data Source [id number] 10/29/2019 03:56:40 PM EDT [facility] [id number] [facility] [employer] [address] [place] [address] [phone] Maxwell Bray (Male) [id number] ES I 2 ED Dispo:ADMIT Chief Complaint: Dysarthria, Lethargy Diagnosis: Altered mental status, unspecified altered mental statu s type [] Bipolar disorder with severe depression (HCC) [] Current Providers: Att ending: Cole Ernandez; Cristi Canas Consulting Provider: Cristi Canas Primary Nurse: Kristy Moss Tech: HERMANN GonzalesN: [phone] [phone] [employer] [phone] - Bs hsi [employer] MrnMRN: [id number] [employer] [phone] - Bshsi [employer] Age Sex 1970 AGE 49 SEX Male Primary Care Provider: Ritika Canas MD Icndgivna: (No Kn own Allergies)Date Reviewed: 10/29/2019Reviewed by: Ritika Canas MD - Review CompleteED Provider Notes: All no tesHNO ID: [id number]: Cristobal Ernandez MDService: -Author Type: PhysicianFiled: 10/29/19 [...] of morbidity or mortality cardiac cath at [facility] approx 6-8 months ago Other unknown and [...] week Gets together: Once a week Attends alevism service: More than 4 times per year [...] QTC Calculation (Bezet) 446 ms Calculated P [place] 53 degrees Calc ulated R [place] 68 degrees Calculated T [place] 0 degrees Diagnosis Sinus tachycardiaProlonged MD intervalNo nspecific intraventricular conduction delayCBC WITH AUTOMATED [...] Time: 10/29/19 10:45 AMResult Value Ref Range [place] level <0.20 (L) 0.6 - 1.2 MMOL/L [...] contrast. Sagittal and coronalreconstruction was performed. Utilizing research center director algorithm theexaminationwas performed to optimize imaging quality by utilizing the lowest possibleradiation dose.Findings: There i s no evidence of intracranial hemorrhage, masses, acutecortical infarction, or midline shift. There are no extra-axial fluidcollections. There is no evidence of hydrocephalus.The bony calvarium shows n o evidence of fracture or destructive bonyprocess.Radiology interpretation reviewed by Cristboal Ernandez MD<EMERGENCY DEPARTMENT CASE SUMMARY>ED Course:49 y.o. [...] status, unspecified altered menta l status type [id number] condition at time of disposition: StableI have [...] d thediagnostic studies, unless otherwise noted.+ED Orders [id number] CBC WITH AUTOMATED DIFF [# [id number]] Priority: STAT Class: ER Collect Standing Order Information Remaining Occurrences:0 /1 Interval:ONE TIME Last released:10/29/2019 Released orders: SunOctober 29, 2019 11:02 AM by: CRISTOBAL ERNANDEZ [id number] METABOLIC PANEL, COMPREHENSIVE [#[id number]] Bridgette ority: STAT Class: ER Collect Standing Order Information Remaining Occurrences:0/1 Inter haile:ONE TIME Last released:10/29/2019 Released orders: SunOctober 29, 2019 11:02 AM by: CRISTOBAL WADE [id number] PROTHROMBIN TIME + INR [#[id number]] Priority: STAT Class: E R Collect Standing Order Information Remaining Occurrences:0/1 Interval:ONE TI ME Last released:10/29/2019 Released orders: SunOctober 29, 2019 11:02 AM by: BRIE ERNANDEZ EN [id number] PTT [#[id number]] Priority: STAT Class: ER Collect Speci men Source: Blood Standing Order Information Remaining Occurrences:0/1 Interval:ONE TI ME Last released:10/29/2019 Released orders: SunOctober 29, 2019 11:02 AM by: BRIE ERNANDEZ [id number] URINALYSIS W/ RFLX MICROSCOPIC [#[id number]] Priority: STAT Class: ER Collect Sta nding Order Information Remaining Occurrences:0/1 Interval:ONE TIME Last released:0 10/29/2019 Released orders: SunOctober 29, 2019 11:02 AM by: CRISTOBAL ERNANDEZ [id number] LITHIUM [#[id number]] Priority: STAT Class: ER Collect Standing Order Information Remaining Occurrences:0 Interval:ONE TIME Last released:10/29/2019 Released orders : SunOctober 29, 2019 11:02 AM by: CRISTOBAL ERNANDEZ [id number] CBC WITH AUTOMATED DIFF [# [id number]] Priority: STAT Class: ER Collect Specimen Source: Whole Blood Specimen Collected: 020 10:45 AM Resulting Agency: [facility] Test ID: [id number] Released on: 0 11:02 AM [id number] METABOLIC PANEL, COMPREHENSIVE [#[id number]] Priority: STAT Class: E R Collect Specimen Source: Plasma Specimen Collected: 10/29/2019 10:45 AM Resulting Agency: [facility] Test ID: MPL Released on: 10/29/2019 11:02 AM [id number] PROTHROMBIN TIME + IN R [#[id number]] Priority: STAT Class: ER Collect Specimen Source: Plasma Specimen Collec hyun: 10/29/2019 10:45 AM Resulting Agency: [facility] Test ID: APTHR Released o n: 10/29/2019 11:02 AM [id number] PTT [#[id number]] Priority: STAT Class: ER Collect Specimen Source: Plasma Specimen Collected: 10/29/2019 10:45 AM Resulting Agency: [facility] Test ID: APTT Released on: 10/29/2019 11:02 AM [id number] URINALYSIS W/ RFLX OR CROSCOPIC [#[id number]] Priority: STAT Class: ER Collect Resulting Agency: [facility] Test ID: UA Released on: 10/29/2019 11:02 AM [id number] LITHIUM [#[id number]] Priority: STAT Class: ER Collect Specimen Source: Serum Specimen Collected: 10/28 10:45 AM Resulting Agency: [facility] Test ID: LI Released on: 10/29/2019 11:02 AM [id number] CBC WITH AUTOMATED DIFF [#[id number]] Priority: STAT Class: E R Collect Standing Order Information Remaining Occurrences:06/25 Interval:TOMORR OW AM [id number] METABOLIC PANEL, BASIC [#[id number]] Priority: STAT Class: ER Collect St anding Order Information Remaining Occurrences:1/1 Interval:TOMORROW AM [id number] CT HEAD W O CONT [#[id number]] Priority: Routine Class: Hospital Performed Standing Or mariano Information Remaining Occurrences:0/1 Interval:ONE TIME Last released:10/29/2019 Released orders: SunOctober 29, 2019 11:02 AM by: CRISTOBAL ERNANDEZ Reason for Exam -> ams IMG 2590 XR CHEST PORT [#[id number]] Priority: STAT Class: Hospital Performe d Standing Order Information Remaining Occurrences:0/1 Interval:ONE TIME Last release d:10/29/2019 Released orders: SunOctober 29, 2019 11:02 AM by: CRISTOBAL ERNANDEZ Reason for Exam -> ams [id number] CT HEAD WO CONT [#[id number]] Priority: STAT Class: Hospital Perfo rmed Specimen Collected: 10/29/2019 11:54 AM Resulting Agency: [facility] Test ID: [id number] Clifton son for Exam -> ams Released on: 10/29/2019 11:02 AM [id number] XR CHEST PORT [#[id number]] Priority: STAT Class: Hospital Performed Specimen Collected: 10/29/2019 12:16 PM Resultin g Agency: [facility] Test ID: [id number] Reason for Exam -> ams Released on: 10/29/2019 11:02 AM [id number] EKG, 12 LEAD, INITIAL [#[id number]] Priority: STAT Class: Hospital Performe d Standing Order Information Remaining Occurrences:0/1 Interval:ONE TIME Last release d:10/29/2019 Released orders: SunOctober 29, 2019 11:02 AM by: CRISTOBAL ERNANDEZ Reason for Exam : -> chest pain [id number] EKG, 12 LEAD, INITIAL [#[id number]] Priority: STAT Class: H ospital Performed Resulting Agency: [facility] Test ID: [id number] Reason for Exam: -> chest pain Releas ed on: 10/29/2019 11:02 AM [id number] POC GLUCOSE [#[id number]] Priority: STAT Cl ass: Hospital Performed Standing Order Information Remaining Occurrences:0/1 Interval:ONE TI ME Last released:10/29/2019 Released orders: SunOctober 29, 2019 11:02 AM by: BRIE ERNANDEZ EN [id number] POC GLUCOSE [#[id number]] Priority: STAT Class: Hospital Performe d Released on: 10/29/2019 11:02 AM [id number] VITAL SIGNS PER UNIT ROUTINE [#[id number]] Priorit y: STAT Class: Hospital Performed Standing Order Information Remaining Occurrences:0/1 Inte rval:CONTINUOUS Last released:10/29/2019 Released orders: SunOctober 29, 2019 2:54 PM by: RITIKA CANAS Comment:More frequently if Indicated. [id number] BEDREST, COMPLETE [#[id number]] Priority: STAT Class: Hospital Performed Standing Order Information Remainin g Occurrences:0/1 Interval:CONTINUOUS Last released:10/29/2019 Released orders : SunOctober 29, 2019 2:54 PM by: RITIKA CANAS2031 NOTIFY PROVIDER: VITAL SIGNS CHANGES [# [id number]] Priority: STAT Class: Hospital Performed Standing Order [...] Less than 120 ml in 4 hours [id number] APPLY/MAINTAIN SEQUENTIAL COMPRESSIO* [#[id number]] Priority: ST AT Class: Hospital Performed Standing Order Information Remaining Occurrences:0/1 Inter haile:CONTINUOUS Last released:10/29/2019 Released orders: SunOctober 29, 2019 2:54 PM by: RITIKA CANAS [id number] VITAL SIGNS PER UNIT ROUTINE [#[id number]] Priority: STAT Class: H ospital Performed Comment:More frequently if Indicated. Released on: 10/29/2019 2:54 PM [id number] BEDREST, COMPLETE [#[id number]] Priority: STAT Class: Hospital Performed Relea sed on: 10/29/2019 2:54 PM [id number] NOTIFY PROVIDER: VITAL SIGNS CHANGES [#[id number]] Priority: STAT Class: Hospital Performed Temp -> [...] carmen rs Released on: 10/29/2019 2:54 PM [id number] APPLY/MAINTAIN SEQUENTIAL COMPRESSIO* [#[id number]] P riority: STAT Class: Hospital Performed Released on: 10/29/2019 2:54 PM SODIUM CHLORIDE 0.9 % IJ SYRG [#[id number]] Priority: STAT Class: Normal SODIUM CHLORIDE 0.9 % IJ SYRG [#[id number]] Priority: STAT Class: Normal ACETAMINOPHEN 325 MG TABLET [# [id number]] Priority: STAT Class: Normal ENOXAPARIN 40 MG/0.4 ML SUB-Q SYRINGE [#[id number]] Priority: STAT Class: Normal SODIUM CHLORIDE 0.9 % IV [#[id number]] Priority: STAT Class: Normal [id number] GLUCOSE, POC [#[id number]] Priority: Routine Class : ER Collect Resulting Agency: [facility] Test ID: BGG Standing Order Informati on Remaining Occurrences:0/1 Released orders: SunOctober 29, 2019 11:26 AM by: Automatic B [facility] Process [id number] GLUCOSE, POC [#[id number]] Priority: Routine Class : ER Collect Specimen Source: Whole Blood Specimen Collected: 10/29/2019 11:26 AM Resulting Agency: [facility] Test ID: BGG Released on: 10/29/2019 11:26 AM [id number] IP CONSULT TO PRIMARY CARE PROVIDER [#[id number]] Priority: STAT Class: Hospital Performed Standing Order Inf ormation Remaining Occurrences:0 Interval:ONE TIME Last released:10/29/2019 Relea sed orders: SunOctober 29, 2019 12:59 PM by: CRISTOBAL ERNANDEZ Reason for Consult: -> admit Did you call or speak to the consulting provider? -> No Consult To -> dr canas [id number] IP CONSULT TO PRIMAR Y CARE PROVIDER [#[id number]] Priority: STAT Class: Hospital Performed Reason for Consult: -> ad rei Did you call or speak to the consulting provider? -> No Consult To -> dr canas Released on: 12:59 PM CON53 IP CONSULT TO PSYCHIATRY [#[id number]] Priority: STAT Class: H ospital Performed Standing [...] -> TODAY CON53 IP CONSULT TO PSYCHIATRY [#[id number]] Priority: STAT Class: Hospital Performed Reason for Consult: -> 49 yo male with severe bipolar diseas e, admitted with slurred speech, severe weakness Did you call or speak to t he consulting provider? -> No Consult To -> Dr Aguirre Schedule When? -> TODAY Released on: 10/29/2019 2:54 PM [id number] INITIAL PHYSICIAN ORDER: INPATIENT [#[id number]] Priority: Routine Class : ADT Pend Transfer [...] Discharge Plan: -> Home with Office Follow-up [id number] INITIAL PHYSICIAN ORDER: INPATIENT [# [id number]] Priority: Routine Class: ADT Pend Transfer Status: [...] Foll ow-up Released on: 10/29/2019 2:43 PM [id number] INITIAL PHYSICIAN ORDER: INPATIENT [#[id number]] Priority: Routine Class: ADT Pend Transfer [...] 3-4 Midnights Discharge Plan: -> Other (Specify) PDQ662 INITIAL PHYSIC JOSE ORDER: INPATIENT [#[id number]] Priority: Routine Class: ADT Pend Transfer Status: [...] 2:54 PM IVT3 INSERT PERIPHERAL IV [# [id number]] Priority: STAT Class: Hospital Performed Standing Order Information Remaining Occurre nces:0/ Interval:ONE TIME Last released:10/29/2019 Released orders: SunOctober 28, 020 2:54 PM by: RITIKA CANAS IVT3 INSERT PERIPHERAL IV [#[id number]] Priority: ST AT Class: Hospital Performed Released on: 10/29/2019 2:54 PM CON75 IP CONSULT TO PHYSICAL THERAPY [#[id number]] Priority: STAT Class: Hospital Performed Standing Order Information Remainin g Occurrences: Interval:DAILY Last released:10/29/2019 Released orders : SunOctober 29, 2019 2:54 PM by: RITIKA CANAS CON75 IP CONSULT TO PHYSICAL THERAPY [#[id number]] Priority: STAT Class: Hospital Performed Released on: 10/29/2019 2:54 PM COD2 FULL CODE [#[id number]] Priority: STAT Class: Hospital Performed Standing Order Inf ormation Remaining Occurrences:0/1 Interval:CONTINUOUS Last released:10/29/2019 Rel eased orders: SunOctober 29, 2019 2:54 PM by: RITIKA CANAS COD2 FULL CODE [#[id number]] Priority: STAT Class: Hospital Performed Released on: 10/29/2019 2:54 PM [id number] 4 DIET FULL LIQUID [#[id number]] Priority: STAT Class: Hospital Performed Stand ing Order Information Remaining Occurrences:0/1 Interval:DIET EFFECTIVE NOW Last released:10/29/2019 Released orders: SunOctober 29, 2019 2:54 PM by: RITIKA CANAS Comment:A dvance as tolerated to regular diet [id number] DIET FULL LIQUID [#[id number]] Priority: STAT Class: Hospital Performed Comment:Advance as tolerated to regular diet Released on: 10/29/2019 2:54 Maxwell Corona MR#: [id number] * Rm: [id number]: 5' 7" Wt: 3 00 lb Code: Full Code Iso:Diagnosis:Bipolar disorder with severe depression (HCC) [F31.4]Allergies : No Known Allergies -------- Current as of: 10/29/19 1556 ---aspirin (ASPIRIN) tablet 325 mg #[id number] Admin Amount: 1 Tab (1 x 325 mg Tab) Ordered Dose: 325 mg Route: Oral Freq: ONCE Start Date: 12/24/13 No administration times (back 96 hours, ahead 96 hours). ------diphenhydrAMINE (BENADRYL) capsule 50 mg #[id number] Admin Amount: 1 Cap (1 x 50 mg Cap) Ordered Dose: 50 mg Ro [place]: Oral Freq: NOW Start Date: 12/24/13 No administration times (back 96 hours, e ad 96 hours). ------diazepam (VALIUM) tablet 5 mg #[id number] Admin Amount: 1 Tab (1 x 5 mg Tab) Ordered Dose: 5 mg Route: Ora l Freq: ONCE Start Date: 12/24/13 No administration times (back 96 hours, e ad 96 hours). ------lidocaine (XYLOCAINE) 10 mg/mL (1 %) injection 1-30 mL #[id number] Admin Amount: 1-30 mL Ordered Dose: 1-30 mL Route: IntraDERMal Freq: ONC E Start Date: 12/24/13 No administration times (back 96 hours, ahead 96 hours). ------heparin (PF) 2 units/ml in NS infusion 2,000 Units #[id number] Admin Amount: 1,000 mL = 2,000 Units of 2 Units/mL Ordered Dose: 1,000 mL Route: Irrigation Freq: ONCE Start Date: 12/24/13 No administration times (b ack 96 hours, ahead 96 hours). ------heparinized saline 2 units/mL infusion 1,000 Units #[id number] Admin Amount: 500 mL = 1,000 Units of 2 Units/mL Ordered Dose: 500 mL R oute: IntraarTERial Freq: ONCE Start Date: 12/24/13 No administration times (back 96 hours, ahead 96 hours). ------0.9% sodium chloride infusion #[id number] Ordered Dose: 75 mL/hr Route: IntraVENous Freq: CONTINUOUS Start Date: 12/24/13 Rate: 75 mL/hr Duration: No administration times (back 96 hours, ahead 96 hours). ------ioversol (OPTIRAY) 320 mg iodine/mL contrast injection 1-100 mL #[id number] Admin Amount: 1-100 mL Ordered Dose: 1-100 mL Route: IntraVENous Freq: RAD ONCE Start Date: 12/24/13 No administration times (back 96 hours, ahead 96 hours).Maxwell Bray MR#: [id number] * Rm: [phone]: 5' 7" Wt: 300 lb Code: Full Code Iso:Diagnosis:Bipolar disorder with severe depression (HCC) [F31.4]Allergies: No Kn own Allergies -------- Current as of: 10/29/19 1556 ---gadobutrol (GADAVIST) contrast solution 1-10 mL #[id number] Admin Amount: 1-10 mL Ordered Dose: 1-10 mL Route: IntraVENo us Freq: RAD ONCE Start Date: 01/13/14 No administration times (back 96 hours, ahe ad 96 hours). ------sodium chloride (NS) flush 5-10 mL #[id number] Admin Amount: 5-10 mL Ordered Dose: 5-10 mL Route: IntraVENous Freq: RA D ONCE Start Date: 01/13/14 No administration times (back 96 hours, ahead 96 hours). ------sodium chloride (NS) 0.9 % flush #[id number] Ordered Dose: Route: Freq: Start D ate: 01/13/14 No administration times (back 96 hours, ahead 96 hours). ------morphine injection 2 mg #[id number] Admin Amount: 1 mL = 2 mg of 2 mg/mL Ordered Dose: 2 mg Route: Int raVENous Freq: NOW Start Date: 03/13/15 No administration times (back 96 hours, ahe ad 96 hours). ------influenza vaccine (4 yr+)(PF) (FLUCELVAX QUAD) inj ection 0.5*#[id number] Admin Amount: 0.5 mL Ordered Dose: 0.5 mL Route: IntraMUSCular Freq : PRIOR TO DISCHARGE Start Date: 03/30/16 No administration times (back 96 hours, ahead 96 hours). ------oxyCODONE-acetaminophe n (PERCOCET) 5-325 mg per tablet 1 Tab #[id number] Admin Amount: 1 Tab Ordered Dose: 1 Tab Route: Oral Freq: NOW Start Date: 09/07/17 No administration times (back 96 hours, ahead 96 hours). ------barium sulfate (READICAT) 2.1 % (w/v), 2.0 % (w /w) oral suspension 9*#[id number] Admin Amount: 900 mL Ordered Dose: 900 mL Route: Ora l Freq: RAD ONCE Start Date: 10/15/17 No administration times (back 96 hours, ahe ad 96 hours). ------iopamidol (ISOVUE 300) 61 % contrast injection 100 mL #[id number] Admin Amount: 100 mL Ordered Dose: 100 mL Route: IntraVENous Freq: RAD O NCE Start Date: 10/15/17 No administration times (back 96 hours, ahead 96 hours).AsaArieMaxwell F MR#: [id number] * Rm: [id number]: 5' 7" Wt: 300 lb Cod e: Full Code Iso:Diagnosis:Bipolar disorder with severe depression ([facility]) [F31.4]Allergies: No Kn own Allergies -------- Current as of: 10/29/19 1556 ---risperiDONE (RisperDAL m-tabs) disintegrating tablet 1 mg #[id number] Admin Amount: 1 Tab (1 x 1 mg Tab) Ordered Dose: 1 mg [place]: Oral Freq: ONCE Start Date: 12/24/17 No administration times (back 96 hours, e ad 96 hours). ------ALPRAZolam (XANAX) tablet 2 mg #[id number] Admin Amount: 4 Tab (4 x 0.5 mg Tab) Ordered Dose: 2 mg Route: Ora l Freq: NOW Start Date: 12/24/17 No administration times (back 96 hours, e ad 96 hours). ------lamoTRIgine (LaMICtal) tablet 100 mg #[id number] Admin Amount: 1 Tab (1 x 100 mg Tab) Ordered Dose: 100 mg Route: Ora l Freq: ONCE Start Date: 12/24/17 No administration times (back 96 hours, [facility] ad 96 hours). ------OLANZapine (ZyPREXA zydis) disintegrating tablet 5 mg #[id number] Admin Amount: 1 Tab (1 x 5 mg Tab) Ordered Dose: 5 mg Route: Ora l Freq: ONCE Start Date: 12/25/17 No administration times (back 96 hours, e ad 96 hours). ------LORazepam (ATIVAN) tablet 2 mg #[id number] Admin Amount: 4 Tab (4 x 0.5 mg Tab) Ordered Dose: 2 mg Route: Ora l Freq: NOW Start Date: 12/25/17 No administration times (back 96 hours, [facility] ad 96 hours). ------LORazepam (ATIVAN) injection 1 mg #[id number] Admin Amount: 0.5 mL = 1 mg of 2 mg/mL Ordered Dose: 1 mg [place]: IntraVENous Freq: NOW Start Date: 12/25/17 No administration times (back 96 hours, ahead 96 hours). ------barium sulfate (EZ PAQUE) 96 % (w/w) contrast suspension 17 6 g #[id number] Admin Amount: 176 g Ordered Dose: 176 g Route: Oral Freq: RAD ONCE Start Date: 08/02/18 No administration times (back 96 hours, ahead 96 hours). ------barium sulfate (EZ PAQUE) 96 % (w/w) contrast suspension 17 6 g #[id number] Admin Amount: 176 g Ordered Dose: 176 g Route: Oral Freq: RAD ONCE Start Date: 08/02/18 No administration times (back 96 hours, ahead 96 hours).Maxwell Bray MR#: [id number] * Rm: [id number]: 5' 7" Wt: 300 lb Code: Full Co de Iso:Diagnosis:Bipolar disorder with severe depression ([facility]) [F31.4]Allergies: No Known Allergies -------- Current as of: 10/29/19 1556 ---aspirin chewable tablet 162 mg #[id number] Admin Amount: 2 Tab (2 x 81 mg Tab) Ordered Dose: 162 mg Route: Ora l Freq: NOW Start Date: 08/10/19 No administration times (back 96 hours, ahe ad 96 hours). ------0.9% sodium chloride infusion 1,000 mL #[id number] Admin Amount: 1,000 mL Ordered Dose: 1,000 mL Route: IntraVENous Freq: O NCE Start Date: 08/16/19 Rate: 1,000 mL/hr Duration: No administratio n times (back 96 hours, ahead 96 hours). ------methylPREDNISolone (PF) (Solu-MEDROL) injection 125 mg #[id number] Admin Amount: 2 mL = 125 mg of 125 mg/2 mL Ordered Dose: 125 mg [place]: IntraVENous Freq: NOW Start Date: 08/16/19 No administration times (back 9 6 hours, ahead 96 hours). ------aspirin chewable tablet 162 mg #[id number] Admin Amount: 2 Tab (2 x 81 mg Tab) Ordered Dose: 162 mg Route: Ora l Freq: NOW Start Date: 08/16/19 No administration times (back 96 hours, e ad 96 hours). ------sodium chloride (NS) flush 5-40 mL #[id number] Admin Amount: 5-40 mL Ordered Dose: 5-40 mL Route: IntraVENous Freq: EV AN 8 HOURS Start Date: 10/29/19 Administration times (back 96 hours, ahead 96 hours): : 1400 2200 10/30/19: 0600 1400 2200 10/31/19: 0600 1400 2200 11/01/19: 0600 1400 2200 11/02/19: 0600 1400 ---sodium chloride (NS) flush 5-40 mL #[id number] Admin Amount: 5-40 mL Ordered Dose: 5-40 mL Route: IntraVENous Freq: NEEDED Start Date: 10/29/19 No administration times (back 96 hours, ahead 96 hours). ------acetaminophen (TYLENOL) tablet 650 mg #[id number] Admin Amount: 2 Tab (2 x 325 mg Tab) Ordered Dose: 650 mg [place]: Oral Freq: EVERY 4 HOURS NEEDED Start Date: 10/29/19 No administration times (back 96 hours, [facility] ad 96 hours).Maxwell Bray MR#: [id number] * Rm: [id number]: 5' 7" Wt: 3 00 lb Code: Full Code Iso:Diagnosis:Bipolar disorder with severe depression ([facility]) [F31.4]Allergies : No Known Allergies -------- Current as of: 10/29/19 1556 ---enoxaparin (LOVENOX) injection 40 mg #[id number] Admin Amount: 0.4 mL = 40 mg of 40 mg/0.4 mL Ordered Dose: 40 mg Route: SubCUTAneous Freq: EVERY 24 HOURS Start Date: 10/29/19 Administration times (back 96 hours, ahead 96 hours): 10/29/19: 1455 10/30/19: 145410/31/19: 145411/01/19: 145411/02/19 : 1455 ---0.9% sodium chloride infusion #[id number] Ordered Dose: 100 mL/hr Route: IntraVENous Freq: [...] Supporting Document(s ) ID Date Data Source [id number] 10/29/2019 03:54:13 PM EDT [facility] History & PhysicalBrian Anam Bray is [...] of morbidity or mortality cardiac cath at [facility] approx 6-8 months ag o Other unknown [...] week Gets together: Once a week Attends alevism service: More than 4 times per year [...] trast. Sagittal and coronal reconstruction was performed.Utilizing research center director alg orithm the examination was performed to [...] QTC Calculation (Bezet) 446 ms Calculated P [place] 53 degrees Calculat ed R [place] 68 degrees Calculated T [place] 0 degrees Diagnosis Sinus tachycardiaProl onged MD intervalNonspecific intraventricular conduction delayCBC WITH AUTOMATED DIFF [...] lydia: 10/29/19 10:45 AMResult Value Ref Range [place] level <0.20 (L) 0.6 - 1.2 MMOL/L GLUCOSE, POC Collection Time: 10/29/19 11:26 AMResult Value Ref Range Glucose, bedsid e 102 65 - 110 MG/DLAll lab results for the last 24 hours reviewed.Assessment/PlanAc tive Problems: Bipolar disorder with severe depression (HCC) (10/29/2019) possible [place] dvertentoverdoseGeorge MD Corey Name Value Range Interpretation Code Description Data Melani rce(s) Supporting Document(s ) ID Date Data Source [id number] 10/29/2019 03:42:10 PM [facility]:Verbal report give n [...] Supporting Document(s ) ID Date Data Source [id number] 10/29/2019 02:28:59 PM EDT [facility] The history is provided by the [...] morbidity or mortal ity cardiac cath at [facility] approx 6-8 months ago Other unknown and [...] week Gets together: Once a week Attends alevism service: More than 4 times per year [...] QTC Calculation (Bezet) 446 ms Calculated P [place] 53 degr ees Calculated R [place] 68 degrees Calculated T [place] 0 degrees Diagnosis Sinus tachycar diaProlonged MD intervalNonspecific intraventricular conduction delayCBC WIT H AUTOMATED [...] lydia: 10/29/19 10:45 AMResult Value Ref Range [place] level <0.20 (L) 0.6 - 1.2 MMOL/L [...] Sagittal and coronalreconstru ction was performed. Utilizing research center director algorithm the examinationwas performed t o optimize [...] Supporting Document(s ) ID Date Data Source [id number] 10/29/2019 12:17:28 PM EDT [facility] XR CHEST PORTCLINICAL INDICATION PROVIDE D:. [...] Supporting Document(s ) ID Date Data Source [id number] 10/29/2019 11:55:57 AM EDT [facility] CT HEAD WO CONTClinical data: amsPriors: 03/13/2015.Technique: Multiple axial images were obtained from the skullbase to the vertexwithout administration of intravenous contrast. Sagittal and coronalreconstru ction was performed. Utilizing research center director algorithm the examinationwas performed t o optimize [...] Supporting Document(s ) ID Date Data Source [id number] 10/29/2019 11:48:34 AM EDT [facility] Name Value Range Interpretation Description Data Sup porting Code Source(s) Document(s ) Glucose 102 MG/DL 65-110 [facility] - Good [Mass/volume] [facility] in Blood by [facility] Automated test strip ID Date Data Source [id number] 10/29/2019 10:49:56 AM EDT [facility] Patient lethargic, BIBA from home for le thargy and slurred speech. Name Value Range Interpretation Code Description Data Melani rce(s) Supporting Document(s ) ID Date Data Source [id number] 10/29/2019 11:29:33 AM EDT [facility] Name Value Range Interpretation Code Description Data Supporting Source(s) Document(s ) [place] 0.6-1.2 Below low normal [facility] - [facility] [Moles/volum [facility] e] in Serum Hospital or Plasma ID Date Data Source [id number] 10/29/2019 11:28:52 AM EDT [facility] Name Value Range Interpretation Description Data Sup porting Code Source(s) Document(s ) Sodium 136 136-145 [facility] - [facility] [Moles/volume] mmol/L [facility] in Serum or Hospital Plasma Potassium 4.4 3.5-5.1 [facility] - Good [Moles/volume] mmol/L [facility] in Serum or Hospital Plasma Chloride 106 98-107 [facility] - Good [Moles/volume] mmol/L [facility] in Serum or Hospital Plasma Carbon 22 21-32 [facility] - Good dioxide, total mmol/L [facility] [Moles/volume] Hospital in Serum or Plasma Anion gap in 12 10-20 [facility] - Good Serum or mmol/L [facility] Plasma Hospital Glucose 108 74-106 Above high normal [facility] - Good [Mass/volume] mg/dL [facility] in Serum or Hospital Plasma Urea nitrogen 16 mg/dL 7-18 [facility] - Good [Mass/volume] [facility] in Serum or Hospital Plasma Creatinine 1.05 0.70-1.3 [facility] - Good [Mass/volume] mg/dL 0 [facility] in Serum or Hospital Plasma Glomerular >60 [facility] - Good filtration [facility] rate/1.73 sq M Hospital predicted among blacks [Volume Rate/Area] in Serum or Plasma by Creatinine-bas ed formula (MDRD) Glomerular >60 [facility] - Good filtration [facility] rate/1.73 sq M Hospital predicted among non-blacks [Volume Rate/Area] in Serum or Plasma by Creatinine-bas ed formula (MDRD) (NOTE)Estimated GFR is calculated using the Modification of Diet in RenalDisease (MDRD) Study equation, reported for both Americans(GFRAA) and non- Americans (GFRNA), and normalized to 1.7 4k9affo surface area. The physician must decide which [...] 8.5-10.1 [facility] - Good Serum or Plasma [facility] Bilirubin.total 0.7 mg/dL 0.2-1.0 [facility] - Good [Mass/volume] in Serum or [facility] Plasma Alanine aminotransferase 30 U/L 13-61 [facility] - Good [Enzymatic activity/volume] [facility] in Serum or Plasma Aspartate aminotransferase 27 U/L 15-37 [facility] - Good [Enzymatic activity/volume] [facility] in Serum or Plasma by With P-5'-P Alkaline phosphatase 139 U/L 45-117 Above high [facility] - Good [Enzymatic activity/volume] normal [facility] in Serum or Plasma Protein [Mass/volume] in 7.6 g/dL 6.4-8.2 [facility] - Good Serum or Plasma [facility] Albumin [Mass/volume] in 3.9 g/dL 3.5-4.7 [facility] - Good Serum or Plasma by [facility] Bromocresol purple (BCP) dye binding method Globulin [Mass/volume] in 3.7 g/dL 1.7-4.7 [facility] - Good Serum by calculation [facility] Albumin/Globulin [Mass 1.0 0.7-2.8 [facility] - Good Ratio] in Serum or Plasma [facility] ID Date Data Source [id number] 10/29/2019 11:20:29 AM EDT [facility] Name Value Range Interpretation Description Data Sup porting Code Source(s) Document(s ) aPTT in 22.2 SEC 21.0-28. [facility] - Good Platelet poor 0 [facility] plasma by [facility] Coagulation assay Therapeutic Range = 42.0-60.0 secs ID Date Data Source [id number] 10/29/2019 11:20:29 AM EDT [facility] - [facility] Name Value Range Interpretation Description Data Sup porting Code Source(s) Document(s ) Prothrombin 10.3 sec 9.4-11.1 [facility] - Good time (PT) [facility] INR in 1.0 0.8-1.2 [facility] - Good Platelet poor [facility] plasma by Hospital Coagulation assay ID Date Data Source [id number] 10/29/2019 11:11:49 AM EDT [facility] - [facility] Name Value Range Interpretation Description Data Sup porting Code Source(s) Document(s ) Leukocytes 8.1 K/uL 4.8-10.6 [facility] - [#/volume] in Good Blood by [facility] Erythrocytes 5.52 4.70-6.0 [facility] - [#/volume] in M/uL 0 Good Blood by [facility] Hemoglobin 16.7 14.0-18. [facility] - [Mass/volume] in g/dL 0 Good Blood [facility] Hematocrit 51.8 % 42.0-52. [facility] - [Volume 0 Good Fraction] of [facility] Blood by [facility] Automated count Erythrocyte mean 93.8 FL 81.0-94. [facility] - corpuscular 0 Good volume [Entitic [facility] volume] by [facility] Automated count Erythrocyte mean 30.3 PG 27.0-35. [facility] - corpuscular 0 Good hemoglobin [facility] [Entitic mass] Hospital by Automated count Erythrocyte mean 32.2 30.7-37. [facility] - corpuscular g/dL 3 Good hemoglobin [facility] [Mass/volume] by Automated count Erythrocyte 13.2 % 11.5-14. [facility] - distribution 0 Good width [Ratio] by [facility] Automated count Hospital Platelets 193 K/uL 130-400 [facility] - [#/volume] in Good Blood by [facility] Automated count Hospital Platelet mean 8.6 FL 9.2-11.8 Below low normal [facility] - volume [Entitic Good volume] in Blood [facility] by Automated Hospital count Nucleated 0.0 PER 0 [facility] - erythrocytes/100 100 WBC Good leukocytes [facility] [Ratio] in Blood [facility] Nucleated 0.00 0.0-0.01 [facility] - erythrocytes K/uL Good [#/volume] in [facility] Segmented 79 % 48.0-72. Above high normal [facility] - neutrophils/100 0 Good leukocytes in [facility] Lymphocytes/100 10 % 18.0-40. Below low normal [facility] - leukocytes in 0 [facility] Blood [facility] Monocytes/100 8 % 2.0-12.0 [facility] - leukocytes in [facility] Eosinophils/100 1 % 0.0-7.0 [facility] - leukocytes in [facility] Basophils/100 0 % 0.0-3.0 [facility] - leukocytes in [facility] Immature 1 % 0-0.5 Above high normal [facility] - granulocytes/100 Good leukocytes in [facility] Hospital Automated count Segmented 6.4 K/UL 2.3-7.6 [facility] - neutrophils Good [#/volume] in [facility] Lymphocytes 0.8 K/UL 0.9-4.2 Below low normal [facility] - [#/volume] in [facility] Monocytes 0.7 K/UL 0.1-1.7 [facility] - [#/volume] in [facility] Eosinophils 0.1 K/UL 0.0-1.0 [facility] - [#/volume] in [facility] Basophils 0.0 K/UL 0.0-0.4 [facility] - [#/volume] in [facility] Immature 0.1 K/UL 0.0-0.17 [facility] - granulocytes Good [#/volume] in [facility] by [facility] Automated count Differential [facility] - cell count [facility] ID Date Data Source [id number] 09/15/2019 09:44:01 AM EDT [facility] Clinical Indications/Reason For Exam: pa in.AP, [...] Supporting Document(s ) ID Date Data Source [id number] 09/15/2019 09:41:40 AM EDT [facility] THORACIC SPINE 4 views.History: Pain.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 Signing date/time: 09/15/2019 9:41 AMSigned by: CURTIS VARMA Name Value Range Interpretation Code Description Data Melani rce(s) Supporting Document(s ) ID Date Data Source [id number] 09/15/2019 09:40:53 AM EDT [facility] Clinical indications with reason for exa [...] Supporting Document(s ) ID Date Data Source [id number] 08/17/2019 08:25:20 AM [facility] History: [...] Supporting Document(s ) ID Date Data Source [id number] 08/16/2019 11:12:22 PM [facility] The [...] m orbidity or mortality cardiac cath at [facility] approx 6-8 months ago Other unknown and [...] e Gets together: Not on file Attends alevism service: Not on file 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 [...] Calculation (Bezet) 429 ms Ca lculated P [place] 36 degrees Calculated R [place] 77 degrees Calculated T [place] -24 degrees Diagnosis Sinus tachycardiaBorderline T abnormalities, [...] Time: 08/16/19 9:00 PMResult Value Ref Range [place] level 0.21 (L) 0.6 - 1.2 MMOL/LEKG: sinus tach ycardia, rate 109Radiology:CXR: no acute findings<EMERGENCY DEPARTMENT CASE [facility]>Impression/Differential Diagnosis: Allergic reaction allergic, drug reactio n,ACS, pulmonary embolismED Course: Patient presents short of breath and mildly tach ycardic complainingof new onset rash to face anterior chest and posterior chest.Plan: Labs, chest x-ray, EKG, troponin, d-dimer, prednisone, Pepcid, :04 PM patient verbalizes relief of symptoms rash has faded. He denies chestpain he denie s shortness of breath.Patient was advised that we cannot rule out allergic drug re action as he isrecently just restarted taking his lithium. Patient advised to discuss takinglithium with his psychiatrist as soon as possible.Patient reassessed at [facility] by me. Feels better at present, wants to go home.Patient was told to follow up with the primary doctor in 1-2 days and return [facility] ED for any worsening severe pain, [...] time of disposition: stableI [facility] medications:Prior to Admission medicationsMedication Sig Start [...] Take 60 mg by mouth daily. Other, Hoadn Miller NPI was personally available for consultation in the emerge ncy department. I havereviewed the chart and agree with the documentation recorded by the MLP,including the assessment, treatment plan, and disposition.Mayank Troy MD Name Value Range Interpretation Code Description Data Melani rce(s) Supporting Document(s ) ID Date Data Source [id number] 08/16/2019 10:46:05 PM EST [facility] - [facility] [id number] [facility] EMERGENCY DEPARTMENT [address] [facility] [address] [phone] Maxwell Bray (Male) [id number] I 3 ED Dispo:DISCHARGE Chief Complaint: Allergic Reaction Diagnosis: Allergic reaction, initial encounter [] Allergic reaction to drug, in itial encounter [] Current Providers: Attending: Javier Quezada Nurse Practitioner: Javier Ward Primary Nurse: LUCILLE Acuña: [phone] Print Group [phone] - [facility] [employer] MrnMRN: [id number] Print Group [phone] - [facility] Age Sex 1970 AGE 49 SEX Male Primary Care Provider: Ritika Canas MD Enyhmmerr: (No Known Allergies)Date Reviewed: 08/16/2019Reviewed by: Zahraa Prince RN - Review CompleteED Provider Notes: No not es of this type exist for this encounter.ED Orders BUPROPION XL 300 MG 24 HR TAB [#[id number]] Priority: Routine Class: Historical Med LITHIUM CARBONATE 150 MG CAP [#[id number]] Priority: Routine Class: Historical Med FAMOTIDINE 20MG + NS 10 ML IV [#[id number]] Priority: STAT Class: Normal H2RA INDICATION -> Adverse reaction/Anaphylaxis SODIUM CH LORIDE 0.9 % IV [#[id number]] Priority: STAT Class: Normal METHYLPREDNISOLONE (PF) 125 MG/2 ML * [#[id number]] Priority: STAT Class: Normal ASPIRIN 81 MG CHEWABLE TAB [# [id number]] Priority: STAT Class: Normal PREDNISONE 50 MG TAB [#[id number]] Bridgette ority: Routine Class: Normal 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 [#[id number]] Priority: STAT C lass: Hospital Performed Standing Order Information Remaining Occurrences:0/1 Interval:Contin uous Last released:08/16/2019 Released orders: Sat Aug 16, 2019 9:02 PM by: Javier POLLOCK Type: -> Bedside [id number] OBTAIN OLD EKG [#[id number]] Priority: Routi ne Class: Hospital Performed Standing Order Information Remaining Occurrences:0/1 Inter haile:ONE TIME Last released:08/16/2019 Released orders: Sat Aug 16, 2019 9:02 PM by: INDIO WARD [id number] PULSE OXIMETRY CONTINUOUS [#[id number]] Priority: STAT Class: H ospital Performed Standing Order Information Remaining Occurrences:0/1 Interval:CONTIN UOUS Last released:08/16/2019 Released orders: Sat Aug 16, 2019 9:02 PM by: Javier POLLOCK [id number] 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 [#[id number]] Priority: STAT Class: Hospital Perfo rmed Type: -> Bedside Released on: 08/16/2019 9:02 PM [id number] OBTAIN OLD EKG [#[id number]] Priority: STAT Class: Hospital Performed Released on: 08/16/2019 9:02 PM [id number] PULSE OXIMETRY CONTINUOUS [#[id number]] Priority: STAT Class: Hospital Performed Relea sed on: 08/16/2019 9:02 PM [id number] DIET NPO [#[id number]] Priority: STAT Cla ss: Hospital Performed Standing Order Information Remaining Occurrences:0/1 Interval:DIET E FFECTIVE NOW Last released:08/16/2019 Released orders: Sat Aug 16, 2019 9:02 PM by: INDIO WARD NPO options: -> With Meds [id number] DIET NPO [#[id number]] Priority: STAT Class: Hospital Performed NPO options: -> With Meds Released on: 08/16/2019 9:02 PM [id number] SALINE LOCK IV [#[id number]] Priority: STAT Class: Hospital Performe d Standing Order Information Remaining Occurrences:0/1 Interval:ONE TIME Last released: 08/16/2019 Released orders: Sat Aug 16, 2019 9:02 PM by: INDIO POLLOCK [id number] SALIN E LOCK IV [#[id number]] Priority: STAT Class: Hospital Performed Released on : 08/16/2019 9:02 PM [id number] METABOLIC PANEL, COMPREHENSIVE [#[id number]] Priority: STAT Class: E R Collect Standing Order Information Remaining Occurrences:0/1 Interval:ONE TIME Last r eleased:08/16/2019 Released orders: Sat Aug 16, 2019 9:02 PM by: INDIO POLLOCK [id number] CBC WITH AUTOMATED DIFF [#[id number]] Priority: STAT Class: ER Collect Standing Order Info rmation Remaining Occurrences:0/1 Interval:ONE TIME Last released:08/16/2019 Released orders: Sat Aug 16, 2019 9:02 PM by: INDIO POLLOCK [id number] TROPONIN I [#[id number]] Priority: STAT Class: ER Collect Standing Order Information Remaining Occurre nces:0/1 Interval:ONE TIME Last released:08/16/2019 Released orders: Sat Aug 16 9:02 PM by: INDIO POLLOCK [id number] MAGNESIUM [#[id number]] Priorit y: STAT Class: ER Collect Standing Order Information Remaining Occurrences:0/1 Inter haile:ONE TIME Last released:08/16/2019 Released orders: Sat Aug 16, 2019 9:02 PM by: INDIO WARD [id number] D DIMER [#[id number]] Priority: STAT Class: E R Collect Standing Order Information Remaining Occurrences:0/1 Interval:ONE TIME Last r eleased:08/16/2019 Released orders: Sat Aug 16, 2019 9:02 PM by: INDIO POLLOCK [id number] METABOLIC PANEL, COMPREHENSIVE [#[id number]] Priority: STAT Class: ER Collect Specimen Source: Plas ma Specimen Collected: 08/16/2019 9:00 PM Resulting Agency: [facility] Test ID: MPL Released on: 08/16/2019 9:02 PM [id number] CBC WITH AUTOMATED DIFF [#[id number]] Prior ity: STAT Class: ER Collect Specimen Source: Whole Blood Specimen Collected: 08/16/2019 9:00 PM Resultin g Agency: [facility] Test ID: [id number] Released on: 08/16/2019 9:02 PM [id number] TROPONIN I [#[id number]] Priority: STAT Class: ER Collect Specimen Source : Plasma Specimen Collected: 08/16/2019 9:00 PM Resulting Agency: [facility] Test ID: [id number] Released on: 08/16/2019 9:02 PM [id number] MAGNESIUM [#[id number]] Priority: STAT Class: ER Collect Specimen Source: Plasma Specimen Collected: 08/16/2019 9:00 PM Resultin g Agency: [facility] Test ID: [id number] Released on: 08/16/2019 9:02 PM [id number] D DIMER [#[id number]] Priority: STAT Class: ER Collect Specimen Source : Plasma Specimen Collected: 08/16/2019 9:00 PM Resulting Agency: [facility] Test ID: [id number] Released on: 08/16/2019 9:02 PM [id number] LITHIUM [#[id number]] Priority: STAT Class: ER Collect Standing Order Information Remaining Occurrences:0/1 Inter haile:ONE TIME Last released:08/16/2019 Released orders: Sat Aug 16, 2019 9:02 PM by: INDIO WARD [id number] LITHIUM [#[id number]] Priority: STAT Class: E R Collect Specimen Source: Serum Specimen Collected: 08/16/2019 9:00 PM Resulting Agency: [facility] Test ID: LI Released on: 08/16/2019 9:02 PM [id number] EKG, 12 LEAD, INITIAL [#[id number]] Priority: STAT Class: Hospital Performed Standing Order Information Remainin g Occurrences:0/1 Interval:ONE TIME Last released:08/16/2019 Released orders : [facility] Aug 16, 2019 9:02 PM by: INDIO POLLOCK Reason for Exam: -> Chest Pain [id number] EKG, 12 LEAD, INITIAL [#[id number]] Priority: STAT Class: Hospital Performed Resulting Age ncy: [facility] Test ID: [id number] Reason for Exam: -> Chest Pain Released on: 08/16/2019 9:02 PM [id number] XR CHEST PORT [#[id number]] Priority: STAT Class: Hospital Performed Stand ing Order Information Remaining Occurrences:0/1 Interval:ONE TIME Last released:0 08/16/2019 Released orders: Sat Aug 16, 2019 9:02 PM by: INDIO POLLOCK Reason for Exam -> Chest Pain [id number] XR CHEST PORT [#[id number]] Priority: STAT Class: H ospital Performed Resulting Agency: [facility] Test ID: [id number] Reason for Exam -> Chest Pain Rele ased on: 08/16/2019 9:02 JORDYMaxwell waddell MR#: [id number] * Rm: [id number] Ht: 5' 10" Wt: 280 lb Code: Prior Iso:Diagnosis:Allergies: No Known Allergies -------- Current as of: 08/16/192245 GI=Given IC=IV Complet ed NB=New Bag --aspirin (ASPIRIN) tablet 325 mg #[id number] Admin Amount: 1 Tab (1 x 325 mg Tab) Ordered Dose: 325 mg Route: Oral Freq: ONCE Start Date: 12/24/13 No administration times (back 96 hours, ahead 96 hours). ------diphenhydrAMINE (BENADRYL) capsule 50 mg #[id number] Admin Amount: 1 Cap (1 x 50 mg Cap) Ordered Dose: 50 mg Route: Ora l Freq: NOW Start Date: 12/24/13 No administration times (back 96 hours, ahe ad 96 hours). ------diazepam (VALIUM) tablet 5 mg #[id number] Admin Amount: 1 Tab (1 x 5 mg Tab) Ordered Dose: 5 mg Route: Oral Freq: ON CE Start Date: 12/24/13 No administration times (back 96 hours, ahead 96 hours). ------lidocaine (XYLOCAINE) 10 mg/mL (1 %) injection 1-30 mL #[id number] Admin Amount: 1-30 mL Ordered Dose: 1-30 mL Route: IntraDERMal Freq: ONCE Start Date: 12/24/13 No administration times (back 96 hours, ahead 96 hours). ------heparin (PF) 2 units/ml in NS infusion 2,000 Units #[id number] Admin Amount: 1,000 mL = 2,000 Units of 2 Units/mL Ordered Dose: 1,000 mL [place]: Irrigation Freq: ONCE Start Date: 12/24/13 No administration times (back 96 hours, ahead 96 hours). ------heparinized saline 2 units/mL infusion 1,000 Units #[id number] Admin Amount: 500 mL = 1,000 Units of 2 Units/mL Ordered Dose: 500 mL [place]: IntraarTERial Freq: ONCE Start Date: 12/24/13 No administration times (back 96 hours, ahead 96 hours). ------0.9% sodium chloride infusion #[id number] Ordered Dose: 75 mL/hr Route: IntraVENous Freq: CONTINUOUS Start Date: 12/24/13 Rate: 75 mL/hr Duration: No administration times (back 96 hours, ahead 96 hours). ------ioversol (OPTIRAY) 320 mg iodine/mL contrast injection 1-100 mL #[id number] Admin Amount: 1-100 mL Ordered Dose: 1-100 mL Route: IntraVENous Freq: RAD O NCE Start Date: 12/24/13 No administration times (back 96 hours, ahead 96 hours).Maxwell Bray MR#: [id number] * Rm: [id number]: 5' 10" Wt: 280 lb Co de: Prior Iso:Diagnosis:Allergies: No Known Allergies -------- Current as of: 08/16/192245 GI=Given IC=IV Complet ed NB=New Bag --gadobutrol (GADAVIST) contrast solution 1-10 mL #[id number] Admin Amount: 1-10 mL Ordered Dose: 1-10 mL Route: IntraVENous Freq: RAD O NCE Start Date: 01/13/14 No administration times (back 96 hours, ahead 96 hours). ------sodium chloride (NS) flush 5-10 mL #[id number] Admin Amount: 5-10 mL Ordered Dose: 5-10 mL Route: IntraVENous Freq: RAD ONCE Start Date: 01/13/14 No administration times (back 96 hours, ahead 96 hours). ------sodium chloride (NS) 0.9 % flush #[id number] Ordered Dose: Route: Freq: Start Date: 01/13 No administration times (back 96 hours, ahead 96 hours). ------morphine injection 2 mg #[id number] Admin Amount: 1 mL = 2 mg of 2 mg/mL Ordered Dose: 2 mg Route: IntraVENous Freq: NOW Start Date: 03/13/15 No administration times (back 96 hours, ahe ad 96 hours). ------influenza vaccine (4 yr+)(PF) (FLUCELVAX QUAD) inj ection 0.5*#[id number] Admin Amount: 0.5 mL Ordered Dose: 0.5 mL Route: IntraMUSCular Freq: PRIOR TO DISCHARGE Start Date: 03/30/16 No administration times (back 96 hours, ahead 96 hours). ------oxyCODONE-acetaminophen (PERCOCET) 5-325 mg per tablet 1 Tab #[id number] Admin Amount: 1 Tab Ordered Dose: 1 Tab Route: Oral Freq: NOW Start Date: 09/07/17 No administration times (back 96 hours, ahead 96 hours). ------barium sulfate (READICAT) 2.1 % (w/v), 2.0 % (w /w) oral suspension 9*#[id number] Admin Amount: 900 mL Ordered Dose: 900 mL Route: Oral Delgado q: RAD ONCE Start Date: 10/15/17 No administration times (back 96 hours, ahead 96 hours). ------iopamidol (ISOVUE 300) 61 % contrast injection 100 mL #[id number] Admin Amount: 100 mL Ordered Dose: 100 mL Route: IntraVENous Freq: RAD ONC E Start Date: 10/15/17 No administration times (back 96 hours, ahead 96 hours).Maxwell Bray MR#: [id number] * Rm: [id number]: 5' 10" Wt: 280 lb Code: Prior Iso:Diagnosis:Allergies: No Known Allergies -------- Current as of: 08/16/192245 GI=Given IC=IV Complet ed NB=New Bag --risperiDONE (RisperDAL m-tabs) disintegrating tablet 1 mg #[id number] Admin Amount: 1 Tab (1 x 1 mg Tab) Ordered Dose: 1 mg Route: Oral Freq: ONCE Start Date: 12/24/17 No administration times (back 96 hours, ahead 96 hours). ------ALPRAZolam (XANAX) tablet 2 mg #[id number] Admin Amount: 4 Tab (4 x 0.5 mg Tab) Ordered Dose: 2 mg Route: Ora l Freq: NOW Start Date: 12/24/17 No administration times (back 96 hours, ahe ad 96 hours). ------lamoTRIgine (LaMICtal) tablet 100 mg #[id number] Admin Amount: 1 Tab (1 x 100 mg Tab) Ordered Dose: 100 mg Route: Oral Delgado q: ONCE Start Date: 12/24/17 No administration times (back 96 hours, ahead 96 hours). ------OLANZapine (ZyPREXA zydis) disintegrating tablet 5 mg #[id number] Admin Amount: 1 Tab (1 x 5 mg Tab) Ordered Dose: 5 mg Route: Oral Delgado q: ONCE Start Date: 12/25/17 No administration times (back 96 hours, ahead 96 hours). ------LORazepam (ATIVAN) tablet 2 mg #[id number] Admin Amount: 4 Tab (4 x 0.5 mg Tab) Ordered Dose: 2 mg Route: Ora l Freq: NOW Start Date: 12/25/17 No administration times (back 96 hours, [facility] ad 96 hours). ------LORazepam (ATIVAN) injection 1 mg #[id number] Admin Amount: 0.5 mL = 1 mg of 2 mg/mL Ordered Dose: 1 mg Route: Int TrevorENous Freq: NOW Start Date: 12/25/17 No administration times (back 96 hours, e ad 96 hours). ------barium sulfate (EZ PAQUE) 96 % (w/w) contrast suspension 17 6 g #[id number] Admin Amount: 176 g Ordered Dose: 176 g Route: Oral Freq: RAD ONCE Start Date: 08/02/18 No administration times (back 96 hours, ahead 96 hours). ------barium sulfate (EZ PAQUE) 96 % (w/w) contrast s uspension 176 g #[id number] Admin Amount: 176 g Ordered Dose: 176 g Route: Oral Delgado q: RAD ONCE Start Date: 08/02/18 No administration times (back 96 hours, ahead 96 hours).Luisito Maxwell donovan MR#: [id number] * Rm: [id number]: 5' 10" Wt: 280 lb Co de: Prior Iso:Diagnosis:Allergies: No Known Allergies -------- Current as of: 08/16/192245 GI=Given IC=IV Complet ed NB=New Bag --aspirin chewable tablet 162 mg #[id number] Admin Amount: 2 Tab (2 x 81 mg Tab) Ordered Dose: 162 mg Route: Oral Freq: NOW Start Date: 08/10/19 No administration times (back 96 hours, ahead 96 hours). ------famotidine (PF) (PEPCID) 20 mg in 0.9% sodium chloride 10 mL inje cti*#[id number] Admin Amount: 20 mg Ordered Dose: 20 mg Route: IntraVENous Freq: EVERY 12 H OURS Start Date: 08/16/19 Administration times (back 96 hours, ahead 96 hours): 08/16/19: 2119G I 08/17/19: 89908/18/19: 89908/19/19: 89908/20/19: 899 2099 ---0.9% sodium chloride infusion 1,000 mL #[id number] Admin Amount: 1,000 mL Ordered Dose: 1,000 mL Route: IntraVENous Freq: ONC E Start Date: 08/16/19 Rate: 1,000 mL/hr Duration: Administration times (back 96 hours, ahead 96 hours): 08/16/19: 2119NB 2245IC -----methylPREDNISolone (PF) (Solu-MEDROL) injection 125 mg #[id number] Admin Amount: 2 mL = 125 mg of 125 mg/2 mL Ordered Dose: 125 mg Route: Int raVENous Freq: NOW Start Date: 08/16/19 Administration times (back 96 hours, ahe ad 96 hours): 08/16/19: 2118GI -----aspirin chewable tablet 162 mg #[id number] Admin Amount: 2 Tab (2 x 81 [...] mg by mouth three (3) times daily.Dispense Hurley unt:Start Date:End Date:Doc. Provider: Paul Bradford MDpredniSONE [...] With:Ritika Canas M DDetails:In 2 daysComments:Contact Info:[address] [facility] [phone]-up With:[facility] EM[facility] DEPARTMENTDetails:Comments:As needed, If symptoms worsenContact Info:[address] [facility] [id number] Name Value Range Interpretation Code Description Data Melani rce(s) Supporting Document(s ) ID Date Data Source [id number] 08/16/2019 10:45:45 PM [facility] IV site clean/dry/intact, gauze dressing applied. Pt received written and verbaldischarge instructions. Verbalize d understanding of same. Ambulated out of EDwith steady gait and in no distress. Name Value Range Interpretation Code Description Data Melani rce(s) Supporting Document(s ) ID Date Data Source [id number] 08/16/2019 09:58:14 PM [facility] Name Value Range Interpretation Description Data Sup porting Code Source(s) Document(s ) [place] 0.21 0.6-1.2 Below low normal [facility] [Moles/volu MMOL/L [facility]] in Hospital Serum or Plasma ID Date Data Source [id number] 08/16/2019 09:52:19 PM [facility] Name Value Range Interpretation Code Description Data Melani rce(s) Supporting Document(s ) Fibrin <500 [facility] - Good D-dimer FEU [facility] [Mass/volume] Hospital in Platelet poor plasma (NOTE)Combination of a D-Dimer result wi thin the reference range and a lowclinical pretest probability has good negative pr edictive value fordeep venous thrombosis.If results are utilized for VTE evaluation, <500 ng/ml is consideredto be negative. ID Date Data Source [id number] 08/16/2019 09:44:39 PM EST [facility] Name Value Range Interpretation Description Data Sup porting Code Source(s) Document(s ) Troponin 0.00-0.05 [facility] - Good I.cardiac [facility] [Mass/volume Hospital ] in Serum or Plasma [...] to 1.50 ng/mL ID Date Data Source [id number] 08/16/2019 09:44:39 PM EST [facility] Value Range Interpretation Description Data Sup porting Code Source(s) Document(s ) Sodium 138 136-145 [facility] - Good [Moles/volume] mmol/L [facility] in Serum or Hospital Plasma Potassium 3.4 3.5-5.1 Below low normal [facility] - Good [Moles/volume] mmol/L [facility] in Serum or Hospital Plasma Chloride 108 98-107 Above high normal [facility] - Good [Moles/volume] mmol/L [facility] in Serum or Hospital Plasma Carbon 20 21-32 Below low normal [facility] - Good dioxide, total mmol/L [facility] [Moles/volume] Hospital in Serum or Plasma Anion gap in 14 10-20 [facility] - Good Serum or mmol/L [facility] Plasma Hospital Glucose 105 74-106 [facility] - Good [Mass/volume] mg/dL [facility] in Serum or Hospital Plasma Urea nitrogen 20 mg/dL 7-18 Above high normal [facility] - Good [Mass/volume] [facility] in Serum or Hospital Plasma Creatinine 0.90 0.70-1.3 [facility] - Good [Mass/volume] mg/dL 0 [facility] in Serum or Hospital Plasma Glomerular >60 [facility] - Good filtration [facility] rate/1.73 sq M Hospital predicted among blacks [Volume Rate/Area] in Serum or Plasma by Creatinine-bas ed formula (MDRD) Glomerular >60 [facility] - Good filtration [facility] rate/1.73 sq M Hospital predicted among non-blacks [Volume Rate/Area] in Serum or Plasma by Creatinine-bas ed formula (MDRD) (NOTE)Estimated GFR is calculated using the Modification of Diet in RenalDisease (MDRD) Study equation, reported for both Americans(GFRAA) and non- Americans (GFRNA), and normalized to 1.7 2h4tdyi surface area. The physician must decide which [...] normal [facility] - Good Serum or Plasma [facility] ital Bilirubin.total 0.3 mg/dL 0.2-1.0 [facility] - Good [Mass/volume] in Serum or [facility] Plasma Alanine aminotransferase 37 U/L 13-61 [facility] - Good [Enzymatic activity/volume] [facility] in Serum or Plasma Aspartate aminotransferase 22 U/L 15-37 [facility] HS - Good [Enzymatic activity/volume] [facility] in Serum or Plasma by With P-5'-P Alkaline phosphatase 98 U/L 45-117 [facility] - G ood [Enzymatic activity/volume] [facility] in Serum or Plasma Protein [Mass/volume] in 7.0 g/dL 6.4-8.2 [facility] - Good Serum or Plasma [facility] ital Albumin [Mass/volume] in 3.7 g/dL 3.5-4.7 [facility] - Good Serum or Plasma by [facility] ospital Bromocresol purple (BCP) dye binding method Globulin [Mass/volume] in 3.3 g/dL 1.7-4.7 [facility] - Good Serum by calculation [facility] Albumin/Globulin [Mass 1.1 0.7-2.8 [facility] - Good Ratio] in Serum or Plasma [facility] ID Date Data Source [id number] 08/16/2019 09:44:39 PM EST [facility] - Good [facility] Name Value Range Interpretation Description Data Sup porting Code Source(s) Document(s ) Magnesium 2.3 mg/dL 1.6-2.6 [facility] - Good [Mass/volume] [facility] in Serum or Hospital Plasma ID Date Data Source [id number] 08/16/2019 09:23:23 PM EST [facility] - Good [facility] Name Value Range Interpretation Description Data Sup porting Code Source(s) Document(s ) Leukocytes 7.6 K/uL 4.8-10.6 [facility] - [#/volume] in Good Blood by [facility] Automated count [facility] Erythrocytes 4.97 4.70-6.0 [facility] - [#/volume] in M/uL 0 Good Blood by [facility] Automated count Hospital Hemoglobin 15.2 14.0-18. [facility] - [Mass/volume] in g/dL 0 Good Blood [facility] Hematocrit 45.0 % 42.0-52. [facility] - [Volume 0 Good Fraction] of [facility] Blood by Hospital Automated count Erythrocyte mean 90.5 FL 81.0-94. [facility] - corpuscular 0 Good volume [Entitic [facility] volume] by Hospital Automated count Erythrocyte mean 30.6 PG 27.0-35. [facility] - corpuscular 0 Good hemoglobin [facility] [Entitic mass] [facility] by Automated count Erythrocyte mean 33.8 30.7-37. [facility] - corpuscular g/dL 3 Good hemoglobin [facility] [Mass/volume] by Automated count Erythrocyte 13.0 % 11.5-14. [facility] - distribution 0 Good width [Ratio] by [facility] Automated count Hospital Platelets 183 K/uL 130-400 [facility] - [#/volume] in [facility] Blood by [facility] Automated count [facility] Platelet mean 8.5 FL 9.2-11.8 Below low normal [facility] - volume [Entitic Good volume] in Blood [facility] by Automated Hospital count Nucleated 0.0 PER 0 [facility] - erythrocytes/100 100 WBC Good leukocytes [facility] [Ratio] in Blood [facility] Nucleated 0.00 0.0-0.01 [facility] - erythrocytes K/uL Good [#/volume] in [facility] Segmented 68 % 48.0-72. [facility] - neutrophils/100 0 Good leukocytes in [facility] Lymphocytes/100 19 % 18.0-40. [facility] - leukocytes in 0 [facility] Monocytes/100 7 % 2.0-12.0 [facility] - leukocytes in [facility] Eosinophils/100 5 % 0.0-7.0 [facility] - leukocytes in [facility] Basophils/100 1 % 0.0-3.0 [facility] - leukocytes in [facility] Immature 1 % 0-0.5 Above high normal [facility] - granulocytes/100 Good leukocytes in [facility] Blood by Hospital Automated count Segmented 5.2 K/UL 2.3-7.6 [facility] - neutrophils Good [#/volume] in [facility] Lymphocytes 1.5 K/UL 0.9-4.2 [facility] - [#/volume] in [facility] Monocytes 0.6 K/UL 0.1-1.7 [facility] - [#/volume] in [facility] Eosinophils 0.3 K/UL 0.0-1.0 [facility] - [#/volume] in [facility] Basophils 0.0 K/UL 0.0-0.4 [facility] - [#/volume] in [facility] Immature 0.0 K/UL 0.0-0.17 [facility] - granulocytes Good [#/volume] in [facility] Blood by Hospital Automated count Differential [facility] - cell count Good method - Blood [facility] ID Date Data Source [id number] 08/16/2019 08:50:30 PM [facility] sudden [...] Supporting Document(s ) ID Date Data Source [id number] 08/11/2019 08:03:02 AM [facility] History:Chest [...] Name Value Range Interpretation Code Description Data [facility] Supporting Document(s ) ID Date Data Source [id number] 08/11/2019 04:22:14 AM [facility] The [...] of morbidity or mortality cardiac cath at [facility] approx 6-8 months ag o Other unknown [...] e Gets together: Not on file Attends alevism service: Not on file 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 [...] QTC Calculation (Bezet) 435 ms Calculated P [place] 55 degrees Calculated R [place] 34 degrees Calculated T [place] 9 degrees Diagnosis S inus tachycardiaOtherwise normal [...] Time: 08/11/19 12:01 AMResult Value Ref Range [place] level <0.20 (L) 0.6 - 1.2 MMOL/LLACTIC [...] 36N*ENCOUNTER 08/11/2019 01:42:54 AM EST [facility] - [facility] [id number] [facility] EMERGENCY DEPARTMENT [address] [place] [address] [phone]/ Maxwell Mitchell (Male) [id number] JOSE 2 ED Dispo:DISCHARGE Chief Complaint: Chest Pain, Shortne ss of Breath Diagnosis: Dyspnea, unspecified type [] Current Providers: Yeimy cochran: Javier Quezada Primary Nurse: ELIS WilsonN: [id number] [employer] [phone] - [facility] [employer] MrnMRN: [id number] [employer] [phone] - Bs i [employer] Age SexDOB 1970 AGE 49 SEX Male Primary Care Provider: Ritika Canas MD Phone: [phone]: (No Known Allergies)Date Reviewed: 08/10/2019Reviewed by: Chiquis Christianson CompleteED Provider Notes: No notes of this type exist for this encounter.ED Orders [id number] E KG, 12 LEAD, INITIAL [#[id number]] Priority: STAT Class: Hospital Performed Stand ing Order Information Remaining Occurrences:0 Interval:ONE TIME Last released:0 08/10/2019 Released orders: [facility] Aug 10, 2019 10:17 PM by: CHIQUIS CHRISTIANSON Reason for Exam: -> CP SOB [id number] EKG, 12 LEAD, INITIAL [#[id number]] Priority: STAT Class: Hospital Performed Specimen Collected: 08/10/2019 10:14 PM Resulting Agency: [facility] Test ID: [id number] Reason for Exam: -> CP SOB Released on: 08/10/2019 10:17 PM [id number] EKG, 12 LE AD, INITIAL [#[id number]] Priority: STAT Class: Hospital Performed Standing Or mariano Information Remaining Occurrences:0/1 Interval:ONE TIME Last released:0 08/10/2019 Released orders: [place] Aug 10, 2019 11:51 PM by: MAYANK QUEZADA V Reason fo r Exam: -> Chest Pain [id number] EKG, 12 LEAD, INITIAL [#[id number]] Priority: STAT C lass: Hospital Performed Resulting Agency: [facility] Test ID: [id number] Reason for Exam: -> Chest P ain Released on: 08/10/2019 11:51 PM [id number] 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 [#[id number]] Priority: STAT Class: Hospital Performed Standing Order Information Remaining Occurre nces:0/1 Interval:Continuous Last released:08/10/2019 Released orders : [place] Aug 10, 2019 11:51 PM by: MAYANK QUEZADA V Type: -> Bedside [id number] PULSE OXIMETR Y CONTINUOUS [#[id number]] Priority: STAT Class: Hospital Performed Standing Or mariano Information Remaining Occurrences:0/1 Interval:CONTINUOUS Last released :08/10/2019 Released orders: [place] Aug 10, 2019 11:51 PM by: MAYANK QUEZADA V [id number] PULSE OXIMETRY SPOT CHECK [#[id number]] Priority: STAT Class: Hospital Performe d Standing Order Information Remaining Occurrences:0/1 Interval:ONE TIME Last r eleased:08/10/2019 Released orders: [place] Aug 10, 2019 11:51 PM by: MAYANK QUEZADA V NU [id number] OBTAIN OLD EKG [#[id number]] Priority: Routine Class: Hospital Perfo rmed Standing Order Information Remaining Occurrences:0/1 Interval:ONE TI ME Last released:08/10/2019 Released orders: [place] Aug 10, 2019 11:51 PM by: MAYANK QUEZADA V [id number] 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 [#[id number]] Priority: STAT Class: H ospital Performed Type: -> Bedside Released on: 08/10/2019 11:51 PM [id number] PULSE OXIM ETRY CONTINUOUS [#[id number]] Priority: STAT Class: Hospital Performed Released on : 08/10/2019 11:51 PM [id number] PULSE OXIMETRY SPOT CHECK [#[id number]] Priority: STAT C lass: Hospital Performed Released on: 08/10/2019 11:51 PM [id number] OBTAIN OLD EKG [#[id number]] Priority: STAT Class: Hospital Performed Released on: 08/10/2019 11: 51 PM [id number] RT--OXYGEN CANNULA [#[id number]] Priority: STAT Class: H ospital Performed Standing Order Information Remaining Occurrences:0/1 Interval:CONTIN UOUS Last released:08/10/2019 Released orders: [facility] Aug 10, 2019 11:51 PM by: MAYANK PRADO V Comment:TITRATE UP TO 4 L / MINUTE TO MAINTAIN O2 SATS GREATER THAN OR EQUAL TO 94% LPM -> 2 Indications for O2? -> CHEST PAIN [id number] RT--OXYGEN CANNULA [#[id number]] Priority: STAT Class: Hospital Performed Comment:TITRATE UP TO 4 L / MINUTE TO MAINTAIN O2 SATS GREATER THAN OR EQUAL TO 94% LPM -> 2 Indications fo r O2? -> CHEST PAIN Released on: 08/10/2019 11:51 PM [id number] DIET NPO [#[id number]] Priority: STAT Class: Hospital Performed Standing Order Information Remaining Occurrences:0/1 Interval:DIET EFFECTIVE NOW Last released:08/10 Released orders: [place] Aug 10, 2019 11:51 PM by: MAYANK QUEZADA V NPO options: - > With Meds [id number] DIET NPO [#[id number]] Priority: STAT Class: H ospital Performed NPO options: -> With Meds Released on: 08/10/2019 11:51 PM [id number] SALINE LOCK IV [#[id number]] Priority: STAT Class: Hospital Performed Standing O rder Information Remaining Occurrences:0/1 Interval:ONE TIME Last released:0 08/10/2019 Released orders: [place] Aug 10, 2019 11:51 PM by: MAYANK QUEZADA V [id number] SALI NE LOCK IV [#[id number]] Priority: STAT Class: Hospital Performed Relea sed on: 08/10/2019 11:51 PM [id number] METABOLIC PANEL, COMPREHENSIVE [#[id number]] Bridgette ority: STAT Class: ER Collect Standing Order Information Remaining Occurrences:0/1 In terval:ONE TIME Last released:08/10/2019 Released orders: Sun Aug 10, 2019 11:51 PM by: MAYANK QUEZADA V [id number] CBC WITH AUTOMATED DIFF [#[id number]] Priority: STAT Class: ER Collect Standing Order Information Remaining Occurrences:0/1 Inter haile:ONE TIME Last released:08/10/2019 Released orders: Sun Aug 10, 2019 11:51 PM by: MAYANK QUEZADA V [id number] TROPONIN I [#[id number]] Priority: STAT Class: ER Collect Standing Order Information Remaining Occurrences:0/1 Inter haile:ONE TIME Last released:08/10/2019 Released orders: Sun Aug 10, 2019 11:51 PM by: MAYANK QUEZADA V [id number] MAGNESIUM [#[id number]] Priority: STAT Class: ER Collect Standing Order Information Remaining Occurrences:0/1 Inter haile:ONE TIME Last released:08/10/2019 Released orders: Sun Aug 10, 2019 11:51 PM by: MAYANK QUEZADA V [id number] BNP [#[id number]] Priority: STAT Class: ER Collect Standing Order Information Remaining Occurrences:0/1 Inter haile:ONE TIME Last released:08/10/2019 Released orders: Sun Aug 10, 2019 11:51 PM by: MAYANK QUEZADA V [id number] D DIMER [#[id number]] Priority: STAT Class: ER Collect Standing Order Information Remaining Occurrences:0/1 Inter haile:ONE TIME Last released:08/10/2019 Released orders: Sun Aug 10, 2019 11:51 PM by: MAYANK QUEZADA V [id number] PROTHROMBIN TIME + INR [#[id number]] Priority: STAT Class: ER Collect Standing Order Information Remaining Occurrences:0/1 Inter haile:ONE TIME Last released:08/10/2019 Released orders: Sun Aug 10, 2019 11:51 PM by: MAYANK QUEZADA V [id number] PTT [#[id number]] Priority: STAT Class: ER Collect Specimen Source: Blood Standing Order Information Remaining Occurrences:0 /1 Interval:ONE TIME Last released:08/10/2019 Released orders: Sun Aug 10, 2019 11:51 PM by: MAYANK QUEZADA V [id number] LITHIUM [#[id number]] Pr iority: STAT Class: ER Collect Standing Order Information Remaining Occurrences:0/1 I nterval:ONE TIME Last released:08/10/2019 Released orders: Sun Aug 10, 2019 11:51 PM by: MAYANK QUEZADA V [id number] METABOLIC PANEL, COMPREHENSIVE [#[id number]] Bridgette ority: STAT Class: ER Collect Specimen Source: Plasma Specimen Collected: 08/11/2019 12:01 AM Resulting Agency: [facility] Test ID: MPL Released on: 08/10/2019 11:51 PM [id number] CBC WITH AUTOMATED DIFF [#[id number]] Priority: STAT Class: E R Collect Specimen Source: Whole Blood Specimen Collected: 08/11/2019 12:01 AM Resulting Agency: [facility] Test ID: [id number] Released on: 08/10/2019 11:51 PM [id number] TROPON IN I [#[id number]] Priority: STAT Class: ER Collect Specimen Source: Gerson sma Specimen Collected: 08/11/2019 12:01 AM Resulting Agency: [facility] RY Test ID: TROIP Released on: 08/10/2019 11:51 PM [id number] MAGNESIUM [#[id number]] Priority: STAT Class: ER Collect Specimen Source: Plasma Specimen Collec hyun: 08/11/2019 12:01 AM Resulting Agency: [facility] Test ID: MGPL Re leased on: 08/10/2019 11:51 PM [id number] BNP [#[id number]] Priority : STAT Class: ER Collect Specimen Source: Plasma Specimen Collected: 08/11/2019 12:01 AM Resultin g Agency: [facility] Test ID: BNPPB Released on: 08/10/2019 11:51 PM [id number] 74 D DIMER [#[id number]] Priority: STAT Class: ER Collect Speci men Source: Plasma Specimen Collected: 08/11/2019 12:01 AM Resulting Agency: [facility] Test ID: DDIME Released on: 08/10/2019 11:51 PM [id number] PROTHROMBIN TIME + INR [#[id number]] Priority: STAT Class: ER Collect Specimen Source: Plasma Specimen Collec hyun: 08/11/2019 12:01 AM Resulting Agency: [facility] Test ID: APTHR R eleased on: 08/10/2019 11:51 PM [id number] PTT [#[id number]] Priorit y: STAT Class: ER Collect Specimen Source: Plasma Specimen Collected: 08/11/2019 12:01 AM Resultin g Agency: [facility] Test ID: APTT Released on: 08/10/2019 11:51 PM [id number] LITHIUM [#[id number]] Priority: STAT Class: ER Collect Speci men Source: Serum Specimen Collected: 08/11/2019 12:01 AM Resulting Agency: [facility] Test ID: LI Released on: 08/10/2019 11:51 PM [id number] LACTIC ACID [#[id number]] Priority: STAT Class: ER Collect Standing Order Information Remainin g Occurrences:0/1 Interval:ONE TIME Last released:08/11/2019 Released orders : Mon Aug 11, 2019 12:15 AM by: KATI WILSON [id number] LACTIC ACID [#[id number]] Priority: STAT Class: ER Collect Specimen Source: Plasma Specimen Collec hyun: 08/11/2019 12:01 AM Resulting Agency: [facility] Test ID: LAC Rel eased on: 08/11/2019 12:15 AM ASPIRIN 81 MG CHEWABLE TAB [#[id number]] Priority: STAT Class: Normal [id number] XR CHEST PORT [#[id number]] Priority: STAT Cl ass: Hospital Performed Standing Order Information Remaining Occurrences:0/1 Inter haile:ONE TIME Last released:08/10/2019 Released orders: Sun Aug 10, 2019 11:51 PM by: MAYANK QUEZADA V Reason for Exam -> Chest Pain [id number] XR CHEST PORT [#[id number]] Priority: STAT Class: Hospital Performed Resulting Agency: [facility] Test ID: [id number] Reason for Exam -> Chest Pain Released on: 08/10/2019 11:51 PM [id number] INFLUENZA A & B AG (RAPID TEST) [#[id number]] Priority: STAT Class: ER Collect Sta nding Order Information Remaining Occurrences:0/1 Interval:ONE TIME Last released: 08/10/2019 Released orders: Sun Aug 10, 2019 11:51 PM by: MAYANK QUEZADA V [id number] INFL UENZA A & B AG (RAPID TEST) [#[id number]] Priority: STAT Class: ER Collect Specimen Source : Nasal washing Specimen Collected: 08/11/2019 12:18 AM Resulting Agency: [facility] Test ID: INFLUA Released on: 08/10/2019 11:51 PM [id number] CULTURE, BLOOD [#[id number]] Priority: STAT Class: ER Collect Specimen Source: Blood Standing Order Information Remaining Occurrences:0/1 Interval:ONE TIME Last released:0 08/11/2019 Released orders: SunAug 11, 2019 12:15 AM by: KATI WILSON [id number] CULTU RE, BLOOD [#[id number]] Priority: STAT Class: ER Collect Specimen Source : Blood Standing Order Information Remaining Occurrences:0/1 Interval:ONE TI ME Last released:08/11/2019 Released orders: SunAug 11, 2019 12:15 AM by: KATI WILSON [id number] CULTURE, BLOOD [#[id number]] Priority: STAT Class: E R Collect Specimen Source: Blood Specimen Collected: 08/11/2019 12:33 AM Resulting Agency: [facility] Test ID: HBCS Released on: 08/11/2019 12:15 AM [id number] CULTUR E, BLOOD [#[id number]] Priority: STAT Class: ER Collect Specimen Source: Blo od Specimen Collected: 08/11/2019 12:43 AM Resulting Agency: [facility] Test ID: HBCS Released on: 08/11/2019 12:15 AMLuisitoMaxwell donovan MR#: [id number] Acct#: [id number]* Rm: [id number]: 5' 10" Wt: 280 lb Code: Prior Iso:Diagnosis:Allergies: No Kno wn Allergies -------- Current as of: 08/11/19 0142 GI=Given -------aspirin (ASPIRIN) tablet 325 mg #[id number] Admin Amount: 1 Tab (1 x 325 mg Tab) Ordered Dose: 325 mg Route: Oral Freq: ONCE Start Date: 12/24/13 No administration times (b ack 96 hours, ahead 96 hours). ------diphenhydrAMINE (BENADRYL) capsule 50 mg #[id number] Admin Amount: 1 Cap (1 x 50 mg Cap) Ordered Dose: 50 mg [place]: Oral Freq: NOW Start Date: 12/24/13 No administration times (back 96 hours, ahead 96 hours). ------diazepam (VALIUM) tablet 5 mg #[id number] Admin Amount: 1 Tab (1 x 5 mg Tab) Ordered Dose: 5 mg Route: Oral Freq: ONCE Start Date: 12/24/13 No administration times (back 96 hours, ahead 96 hours). ------lidocaine (XYLOCAINE) 10 mg/mL (1 %) injection 1-3 0 mL #[id number] Admin Amount: 1-30 mL Ordered Dose: 1-30 mL Route: Int raDERMal Freq: ONCE Start Date: 12/24/13 No administration times (back 96 hours, ahead 96 hours). ------heparin (PF) 2 units/ml in NS infusion 2,000 Units #[id number] Admin Amount: 1,000 mL = 2,000 Units of 2 Units/mL Ordered Dose: 1,000 mL Route: Irrigation Freq: ONCE Start Date: 12/24/13 No administration times (back 96 hours, ahead 96 hours). ------heparinized saline 2 units/mL infusion 1,000 Units #[id number] Admin Amount: 500 mL = 1,000 Units of 2 Units/mL Ordered Dose: 500 m L Route: IntraarTERial Freq: ONCE Start Date: 12/24/13 No admini stration times (back 96 hours, ahead 96 hours). ------0.9% sodium chloride infusion #[id number] Ordered Dose: 75 mL/hr Route: IntraVENous Freq: CONTINUOUS Start Date: 12/24/13 Rate: 75 mL/hr Duration: No administration ti mes (back 96 hours, ahead 96 hours). ------ioversol (OPTIRAY) 320 mg iodine/mL contrast inje ction 1-100 mL #[id number] Admin Amount: 1-100 mL Ordered Dose: 1-100 mL [place]: IntraVENous Freq: RAD ONCE Start Date: 12/24/13 No administration times (back 96 hours, ahead 96 hours).Maxwell Bray MR#: [id number] * Rm: [id number] Ht: 5' 10" Wt: 280 lb Code: Prior Iso:Diagnosis:Allergies: No Known Allergies -------- Current as of: 08/11/19 0142 GI=Given -------gadobutrol (GADAVIST) contrast solution 1-10 mL #[id number] Admin Amount: 1-10 mL Ordered Dose: 1-10 mL Route: Int raVENous Freq: RAD ONCE Start Date: 01/13/14 No administration times (back 96 hours, ahead 96 hours). ------sodium chloride (NS) flush 5-10 mL #[id number] Admin Amount: 5-10 mL Ordered Dose: 5-10 mL Route: IntraVENo us Freq: RAD ONCE Start Date: 01/13/14 No administration times (back 96 hours, ahe ad 96 hours). ------sodium chloride (NS) 0.9 % flush #[id number] Ordered Dose: Route: Freq: Start Date: 01/13/14 No administration times (back 96 hours, ahead 96 hours). ------morphine injection 2 mg #[id number] Admin Amount: 1 mL = 2 mg of 2 mg/mL Ordered Dose: 2 mg Route: IntraVENous Freq: NOW Start Date: 03/13/15 No administration t imes (back 96 hours, ahead 96 hours). ------influenza vaccine (4 yr+)(PF) (FLUCELVAX Q UAD) injection 0.5*#[id number] Admin Amount: 0.5 mL Ordered Dose: 0.5 mL Route: Int raMUSCular Freq: PRIOR TO DISCHARGE Start Date: 03/30/16 No administration times (back 9 6 hours, ahead 96 hours). ------oxyCODONE-acetam inophen (PERCOCET) 5-325 mg per tablet 1 Tab #[id number] Admin Amount: 1 Tab Ordered Dose: 1 Tab Route: Oral Freq: NOW Start Date: 09/07/17 No administration times (back 96 hours, ahe ad 96 hours). ------barium sulfate (READICAT) 2.1 % (w/v), 2.0 % (w/w) oral suspension 9*#[id number] Admin Amount: 900 mL Ordered Dose: 900 mL Route: Oral Delgado q: RAD ONCE Start Date: 10/15/17 No administration times (back 96 hours, e ad 96 hours). ------iopamidol (ISOVUE 300) 61 % contrast injection 100 mL #[id number] Admin Amount: 100 mL Ordered Dose: 100 mL Route: Int raVENous Freq: RAD ONCE Start Date: 10/15/17 No administration times (back 96 hours, ahead 96 hours).Maxwell Bray MR#: [id number] * Rm: [id number]: 5' 1 0" Wt: 280 lb Code: Prior Iso:Diagnosis:Allergies: No Known Allergies -------- Current as of: 08/11/19 0142 GI=Given -------risperiDONE (RisperDAL m-tabs) disintegrating tablet 1 mg #[id number] Admin Amount: 1 Tab (1 x 1 mg Tab) Ordered Dose: 1 mg Route: Oral Freq: ONCE Start Date: 12/24/17 No administration times (back 96 hours, ahead 96 hours). ------ALPRAZolam (XANAX) tablet 2 mg #[id number] Admin Amount: 4 Tab (4 x 0.5 mg Tab) Ordered Dose: 2 mg Route: Oral Freq: NOW Start Date: 12/24/17 No administration times (back 96 hours, ahead 96 hours). ------lamoTRIgine (LaMICtal) tablet 100 mg #[id number] Admin Amount: 1 Tab (1 x 100 mg Tab) Ordered Dose: 100 mg Route: Oral Freq: ONCE Start Date: 12/24/17 No administration times (back 96 hours, ahead 96 hours). ------OLANZapine (ZyPREXA zydis) disintegrating tablet 5 mg #[id number] Admin Amount: 1 Tab (1 x 5 mg Tab) Ordered Dose: 5 mg Route: Oral Freq: ONCE Start Date: 12/25/17 No administration times (back 96 hours, ahead 96 hours). ------LORazepam (ATIVAN) tablet 2 mg #[id number] Admin Amount: 4 Tab (4 x 0.5 mg Tab) Ordered Dose: 2 mg Route: Oral Freq: NOW Start Date: 12/25/17 No administration times (back 96 hours, ahead 96 hours). ------LORazepam (ATIVAN) injection 1 mg #[id number] Admin Amount: 0.5 mL = 1 mg of 2 mg/mL Ordered Dose: 1 mg Route: IntraVENous Freq: NOW Start Date: 12/25/17 No administration ti mes (back 96 hours, ahead 96 hours). ------barium sulfate (EZ PAQUE) 96 % (w/w) contrast suspensio n 176 g #[id number] Admin Amount: 176 g Ordered Dose: 176 g Route: Oral Delgado q: RAD ONCE Start Date: 08/02/18 No administration times (back 96 hours, [facility] ad 96 hours). ------barium sulfate (EZ PAQUE) 96 % (w/w) contrast suspensio n 176 g #[id number] Admin Amount: 176 g Ordered Dose: 176 g Route: Oral Delgado q: RAD ONCE Start Date: 08/02/18 No administration times (back 96 hours, [facility] ad 96 hours).Maxwell Bray MR#: [id number] * Rm: [id number]: 5' 10" Wt: 280 lb Code: Prior Iso:Diagnosis:Allergies: No Known Allergies -------- Current as of: 08/11/19 0142 GI=Given -------aspirin chewable tablet 162 mg #[id number] Admin Amount: 2 Tab (2 x 81 [...] possible for a visit in 1 dayComments:Contact Info:[facility] Kevinsam Rodriguez [address] [id number] With:Detail s:Comments:As needed, If symptoms worsenContact Info: Name Value Range Interpretation Code Description Data Melani rce(s) Supporting Document(s ) ID Date Data Source [id number] 08/11/2019 01:40:37 AM EST [facility] I have reviewed discharge instructions w ith the patient and spouse. The patientand spouse verbalized understanding.\\ Name Value Range Interpretation Code Description Data Melani rce(s) Supporting Document(s ) ID Date Data Source [id number] 08/16/2019 06:35:29 AM EST [facility] Name Value Range Interpretation Description Data Sup porting Code Source(s) Document(s ) Service comment [facility] Bacteria BSS - Good identified in [facility] Unspecified Hospital specimen by Culture ID Date Data Source [id number] 08/16/2019 06:35:28 AM EST [facility] Name Value Range Interpretation Description Data Sup porting Code Source(s) Document(s ) Service comment [facility] Bacteria [facility] - Good [facility] by Culture ID Date Data Source [id number] 08/11/2019 12:56:01 AM EST [facility] Name Value Range Interpretation Description Data Sup porting Code Source(s) Document(s ) Influenza virus NEG [facility] A Ag [Presence] [facility] in [facility] Hospital by Immunoassay Influenza virus NEG [facility] - [facility] B Ag [Presence] [facility] in [facility] by Immunoassay IMMUNOCHROMATOGRAPHIC MEMBRANE ASSAYResu lt: Negative for Influenza A and BNote: A negative result does not exclude an infl uenza virus infection, including H1N1. If more conclusive testing is desired, foll ow-up confirmatory testing is warranted. Specimen source [Identifier] of Unspecified [facility] specimen ID Date Data Source [id number] 08/11/2019 01:35:58 AM EST [facility] Name Value Range Interpretation Description Data Sup porting Code Source(s) Document(s ) Prothrombin 9.6 sec 9.4-11.1 [facility] time (PT) [facility] INR in 0.9 0.8-1.2 [facility] - Good Platelet poor [facility] plasma by Hospital Coagulation assay ID Date Data Source [id number] 08/11/2019 01:35:58 AM EST [facility] Name Value Range Interpretation Description Data Sup porting Code Source(s) Document(s ) aPTT in 23.1 SEC 21.0-28. [facility] - Good Platelet poor 0 [facility] plasma by Hospital Coagulation assay Therapeutic Range = 42.0-60.0 secs ID Date Data Source [id number] 08/11/2019 01:30:36 AM EST [facility] Name Value Range Interpretation Description Data Sup porting Code Source(s) Document(s ) Natriuretic 19 pg/mL 0-100 [facility] peptide B [facility] [Mass/volume] [facility] in Serum or Plasma ID Date Data Source [id number] 08/11/2019 01:25:10 AM EST [facility] Name Value Range Interpretation Code Description Data Supporting Source(s) Document(s ) [place] 0.6-1.2 Below low normal [facility] - Good [Moles/volum [facility] e] in Serum Hospital or Plasma ID Date Data Source [id number] 08/11/2019 01:20:56 AM EST [facility] Name Value Range Interpretation Code Description Data Melani rce(s) Supporting Document(s ) Fibrin <500 BSS - [facility] D-dimer FEU [facility] [Mass/volume] [facility] in Platelet poor plasma (NOTE)Combination of a D-Dimer result wi thin the reference range and a lowclinical pretest probability has good negative pr edictive value fordeep venous thrombosis.If results are utilized for VTE evaluation, <500 ng/ml is consideredto be negative. ID Date Data Source [id number] 08/11/2019 01:09:42 AM [facility] Name Value Range Interpretation Description Data Sup porting Code Source(s) Document(s ) Lactate 1.7 0.4-2.0 [facility] - Good [Moles/volu MMOL/L [facility] me] in Hospital Serum or Plasma ID Date Data Source [id number] 08/11/2019 01:09:42 AM EST [facility] Value Range Interpretation Description Data Sup porting Code Source(s) Document(s ) Troponin 0.00-0.05 [facility] - Good I.cardiac [facility] [Mass/volume Hospital ] in Serum or Plasma [...] to 1.50 ng/mL ID Date Data Source [id number] 08/11/2019 01:09:42 AM EST [facility] Name Value Range Interpretation Description Data Sup porting Code Source(s) Document(s ) Sodium 140 136-145 [facility] - Good [Moles/volume] mmol/L [facility] in Serum or Hospital Plasma Potassium 3.9 3.5-5.1 [facility] - Good [Moles/volume] mmol/L [facility] in Serum or Hospital Plasma Chloride 113 98-107 Above high normal [facility] - Good [Moles/volume] mmol/L [facility] in Serum or Hospital Plasma Carbon 21 21-32 [facility] - Good dioxide, total mmol/L [facility] [Moles/volume] Hospital in Serum or Plasma Anion gap in 10 10-20 [facility] - Good Serum or mmol/L [facility] Plasma Hospital Glucose 90 mg/dL 74-106 [facility] - Good [Mass/volume] [facility] in Serum or Hospital Plasma Urea nitrogen 18 mg/dL 7-18 [facility] - Good [Mass/volume] [facility] in Serum or Hospital Plasma Creatinine 0.78 0.70-1.3 [facility] - Good [Mass/volume] mg/dL 0 [facility] in Serum or Hospital Plasma Glomerular >60 [facility] - Good filtration [facility] rate/1.73 sq M Hospital predicted among blacks [Volume Rate/Area] in Serum or Plasma by Creatinine-bas ed formula (MDRD) Glomerular >60 [facility] - Good filtration [facility] rate/1.73 sq M Hospital predicted among non-blacks [Volume Rate/Area] in Serum or Plasma by Creatinine-bas ed formula (MDRD) (NOTE)Estimated GFR is calculated using the Modification of Diet in RenalDisease (MDRD) Study equation, reported for both Americans(GFRAA) and non- Americans (GFRNA), and normalized to 1.7 9a9tyjk surface area. The physician must decide which [...] normal [facility] - Good Serum or Plasma [facility] ital Bilirubin.total 0.5 mg/dL 0.2-1.0 [facility] - Good [Mass/volume] in Serum or [facility] Plasma Alanine aminotransferase 29 U/L 13-61 [facility] - Good [Enzymatic activity/volume] [facility] in Serum or Plasma Aspartate aminotransferase 18 U/L 15-37 [facility] - Good [Enzymatic activity/volume] [facility] in Serum or Plasma by With P-5'-P Alkaline phosphatase 98 U/L 45-117 [facility] - G ood [Enzymatic activity/volume] [facility] in Serum or Plasma Protein [Mass/volume] in 6.7 g/dL 6.4-8.2 [facility] - Good Serum or Plasma [facility] ital Albumin [Mass/volume] in 3.4 g/dL 3.5-4.7 Below low normal [facility] - Good Serum or Plasma by [facility] ospital Bromocresol purple (BCP) dye binding method Globulin [Mass/volume] in 3.3 g/dL 1.7-4.7 [facility] - Good Serum by calculation [facility] Albumin/Globulin [Mass 1.1 0.7-2.8 [facility] - Good Ratio] in Serum or Plasma [facility] ID Date Data Source [id number] 08/11/2019 01:09:42 AM EST [facility] Name Value Range Interpretation Description Data Sup porting Code Source(s) Document(s ) Magnesium 2.1 mg/dL 1.6-2.6 [facility] - Good [Mass/volume] [facility] in Serum or Hospital Plasma ID Date Data Source [id number] 08/11/2019 01:01:18 AM EST [facility] Name Value Range Interpretation Description Data Sup porting Code Source(s) Document(s ) Leukocytes 7.7 K/uL 4.8-10.6 [facility] - [#/volume] in Good Blood by [facility]ational Automated count [facility] Erythrocytes 4.93 4.70-6.0 [facility] - [#/volume] in M/uL 0 Good Blood by [facility] Automated count Hospital Hemoglobin 14.9 14.0-18. [facility] - [Mass/volume] in g/dL 0 [facility] Blood [facility] Hematocrit 44.4 % 42.0-52. [facility] - [Volume 0 Good Fraction] of [facility] Blood by Hospital Automated count Erythrocyte mean 90.1 FL 81.0-94. [facility] - corpuscular 0 Good volume [Entitic [facility] volume] by Hospital Automated count Erythrocyte mean 30.2 PG 27.0-35. [facility] - corpuscular 0 Good hemoglobin [facility] [Entitic mass] Hospital by Automated count Erythrocyte mean 33.6 30.7-37. [facility] - corpuscular g/dL 3 Good hemoglobin [facility] [Mass/volume] by Automated count Erythrocyte 12.5 % 11.5-14. [facility] - distribution 0 Good width [Ratio] by [facility]ational Automated count Hospital Platelets 189 K/uL 130-400 [facility] - [#/volume] in Good Blood by [facility]ational Automated count Hospital Platelet mean 9.0 FL 9.2-11.8 Below low normal [facility] - volume [Entitic Good volume] in Blood [facility] by Automated Hospital count Nucleated 0.0 PER 0 [facility] - erythrocytes/100 100 WBC Good leukocytes [facility] [Ratio] in Blood Hospital Nucleated 0.00 0.0-0.01 [facility] - erythrocytes K/uL Good [#/volume] in [facility] Segmented 59 % 48.0-72. [facility] - neutrophils/100 0 Good leukocytes in [facility] Lymphocytes/100 29 % 18.0-40. [facility] - leukocytes in 0 [facility] Blood [facility] Monocytes/100 7 % 2.0-12.0 [facility] - leukocytes in [facility] Blood [facility] Eosinophils/100 5 % 0.0-7.0 [facility] - leukocytes in [facility] Blood [facility] Basophils/100 1 % 0.0-3.0 [facility] - leukocytes in [facility] Blood [facility] Immature 0 % 0-0.5 [facility] - granulocytes/100 Good leukocytes in [facility] Blood by Hospital Automated count Segmented 4.6 K/UL 2.3-7.6 [facility] - neutrophils Good [#/volume] in [facility] Lymphocytes 2.2 K/UL 0.9-4.2 [facility] - [#/volume] in [facility] Monocytes 0.5 K/UL 0.1-1.7 [facility] - [#/volume] in [facility] Eosinophils 0.4 K/UL 0.0-1.0 [facility] - [#/volume] in [facility] Basophils 0.1 K/UL 0.0-0.4 [facility] - [#/volume] in [facility] Immature 0.0 K/UL 0.0-0.17 [facility] - granulocytes Good [#/volume] in [facility] Hospital Automated count Differential [facility] - cell count Good method - [facility] Procedure Social History Code Duration Value Status Description Data Source(s ) Alcohol intake 01/08/2020 Current completed Current [place] [facility] 12:00:00 AM EDT non-drinker non-drinker of [employer] alcohol (finding) [employer] (finding) Tobacco use and 01/08/2020 Never used completed Never used [facility] exposure 12:00:00 AM EDT [employer] Smoking 01/08/2020 Never smoker completed Never smoker [place] [facility] 12:00:00 AM EDT [employer] Alcohol intake 12/25/2019 Current completed Current [place] [facility] 12:00:00 AM EDT non-drinker non-drinker of [employer] alcohol (finding) [employer] (finding) Tobacco use and 12/25/2019 Never used completed Never used [facility] exposure 12:00:00 AM EDT [employer] Smoking 12/25/2019 Never smoker completed Never smoker [place] [facility] 12:00:00 AM EDT [employer] Alcohol intake 12/12/2019 Current completed Current [place] [facility] 12:00:00 AM EDT non-drinker non-drinker of [employer] alcohol (finding) [employer] (finding) Smoking 12/12/2019 Never smoker completed Never smoker [place] [facility] 12:00:00 AM EDT [employer] Alcohol intake 12/05/2019 Current completed Current [place] [facility] 12:00:00 AM EDT non-drinker non-drinker of [employer] alcohol (finding) [employer] (finding) Tobacco use and 12/05/2019 Never used completed Never used [facility] exposure 12:00:00 AM EDT [employer] Smoking 12/05/2019 Never smoker completed Never smoker [place] [facility] 12:00:00 AM EDT [employer] Alcohol intake 12/01/2019 Current completed Current [place] [facility] 12:00:00 AM EDT non-drinker non-drinker of [employer] alcohol (finding) [employer] (finding) Smoking 12/01/2019 Never smoker completed Never smoker [place] [facility] 12:00:00 AM EDT [employer] Alcohol intake 11/14/2019 Current completed Current [place] [facility] 12:00:00 AM EDT non-drinker non-drinker of [employer] alcohol (finding) [employer] (finding) Smoking 11/14/2019 Never smoker completed Never smoker [place] [facility] 12:00:00 AM EDT [employer] Alcohol intake 11/10/2019 Current completed Current [place] [facility] 12:00:00 AM EDT non-drinker non-drinker of [employer] alcohol alcohol (finding) [employer] (finding) Smoking 11/10/2019 Never smoker completed Never smoker [place] [facility] 12:00:00 AM EDT [employer] Alcohol intake 09/06/2019 Current completed Current [place] [facility] 12:00:00 AM EDT non-drinker non-drinker of [employer] alcohol alcohol (finding) [employer] (finding) Smoking 09/06/2019 Never smoker completed Never smoker [place] [facility] 12:00:00 AM EDT [employer] Alcohol intake 08/16/2019 Current completed Current [place] [facility] 12:00:00 AM EST non-drinker non-drinker of [employer] alcohol alcohol (finding) [employer] (finding) Smoking 08/16/2019 Never smoker completed Never smoker [place] [facility] 12:00:00 AM EST [employer] Alcohol intake 08/10/2019 Current completed Current [place] [facility] 12:00:00 AM EST non-drinker non-drinker of [employer] of alcohol alcohol (finding) [employer] (finding) Smoking 08/10/2019 Never smoker completed Never smoker [place] [facility] 12:00:00 AM EST [employer] Alcohol intake 07/21/2019 Current completed Current [place] [facility] 12:00:00 AM EST non-drinker non-drinker of [employer] of alcohol alcohol (finding) [employer] (finding) Smoking 07/21/2019 Never smoker completed Never smoker [place] [facility] 12:00:00 AM EST [employer] Vital Signs ID Date Data Source UNK Name Value Range Interpretation Code Description Data Source(s) Oxygen saturation 98 % 98 % [facility] [place] ours in Arterial blood [employer]Plenum[employer] by Pulse oximetry [employer] Body mass index 48.95 kg/m2 48.95 kg/m2 [facility] Bates ours (BMI) [Ratio] [employer] [facility] [employer] [facility] Body weight 136.533 kg 136.533 kg [facility] [employer] [facility] Body height 167 cm 167 cm [facility] [employer] [facility] Respiratory rate 12 /min 12 /min [facility] [employer] System [facility] Body temperature 36.56 May 36.56 May [facility] [employer] [facility] Heart rate 102 /min 102 /min [employer] Diastolic blood 60 mm[Hg] 60 mm[Hg] Bon Sec[facility] rs pressure [employer] [facility] Systolic blood 100 mm[Hg] 100 mm[Hg] [place] [facility] pressure [employer] System [employer] Diastolic blood 80 mm[Hg] 80 mm[Hg] Bon Sec[facility] rs pressure [employer]Plenum[employer] System [facility] Systolic blood 122 mm[Hg] 122 mm[Hg] [place] pressure [employer] System [facility] Respiratory rate 20 /min 20 /min Bon [facility] urs [employer] System [facility] Heart rate 70 /min 70 /min Bon [employer] [facility] Diastolic blood 70 mm[Hg] 70 mm[Hg] Bon Sec[facility] rs pressure [employer] [facility] Systolic blood 124 mm[Hg] 124 mm[Hg] [place] pressure [employer] [facility] Respiratory rate 18 /min 18 /min [facility] [employer] System [facility] Body temperature 36.56 May 36.56 May [facility] urs [employer] [facility] [employer] Heart rate 88 /min 88 /min [facility] [employer] [facility] [employer] Diastolic blood 86 mm[Hg] 86 mm[Hg] Bon Sec[facility] rs pressure [employer] [facility] [employer] Systolic blood 110 mm[Hg] 110 mm[Hg] [place] [facility] pressure [employer] Oxygen saturation 98 % 98 % [facility] ours in Arterial blood Bela [employer] by Pulse oximetry [employer] Body mass index 47.98 kg/m2 47.98 kg/m2 Bon [facility] ours (BMI) [Ratio] [facility] Body weight 133.811 kg 133.811 kg Bon [employer] Inc Body height 167 cm 167 cm Bon [employer] Respiratory rate 12 /min 12 /min [facility] urs [employer] Body temperature 36.67 May 36.67 May [facility] urs [employer] Heart rate 100 /min 100 /min [facility] [employer] [facility] [employer] Diastolic blood 66 mm[Hg] 66 mm[Hg] Bon Sec[facility] rs pressure [employer] [facility] [employer] Systolic blood 102 mm[Hg] 102 mm[Hg] [place] pressure [employer] [facility] [employer] Respiratory rate 20 /min 20 /min [facility] urs [employer] [facility] [employer] Heart rate 70 /min 70 /min [facility] [employer] [facility] [employer] Diastolic blood 68 mm[Hg] 68 mm[Hg] [facility] Sec[facility] rs pressure [facility] Systolic blood 120 mm[Hg] 120 mm[Hg] [place] [facility] pressure [employer] [facility] [employer] Respiratory rate 18 /min 18 /min [facility] urs [employer] [facility] [employer] Heart rate 68 /min 68 /min [facility] [employer] [facility] [employer] Diastolic blood 68 mm[Hg] 68 mm[Hg] [facility] Sec[facility] rs pressure [facility] Systolic blood 112 mm[Hg] 112 mm[Hg] [place] [facility] pressure [employer] [facility] [employer] Respiratory rate 20 /min 20 /min [facility] urs [employer] Body temperature 36.56 May 36.56 May [facility] urs [employer] [facility] [employer] Heart rate 92 /min 92 /min [facility] [employer] Diastolic blood 70 mm[Hg] 70 mm[Hg] Bon Sec[facility] rs pressure [employer] System [employer] Systolic blood 110 mm[Hg] 110 mm[Hg] [place] [facility] pressure [facility] Respiratory rate 20 /min 20 /min [facility] urs [facility] Heart rate 68 /min 68 /min [facility] [employer] [facility] [employer] Diastolic blood 72 mm[Hg] 72 mm[Hg] Bon Sec[facility] rs pressure [employer] [facility] [employer] Systolic blood 112 mm[Hg] 112 mm[Hg] [place] pressure [employer] [facility] [employer] Respiratory rate 20 /min 20 /min [facility] urs [employer] [facility] [employer] Heart rate 82 /min 82 /min [facility] [employer] [facility] [employer] Diastolic blood 66 mm[Hg] 66 mm[Hg] Bon Sec[facility] rs pressure [employer] [facility] [employer] Systolic blood 110 mm[Hg] 110 mm[Hg] [place] pressure [employer] [facility] [employer] Respiratory rate 14 /min 14 /min [facility] urs [employer] [facility] [employer] Body temperature 36.89 May 36.89 May [facility] urs [employer] [facility] [employer] Heart rate 72 /min 72 /min Bon [employer]Mailgun System Inc Diastolic blood 74 mm[Hg] 74 mm[Hg] Bon Sec[facility] rs pressure [employer] [facility] [employer] Systolic blood 128 mm[Hg] 128 mm[Hg] [place] [facility] pressure [employer] [facility] [employer] Respiratory rate 20 /min 20 /min [facility] urs [employer] [facility] [employer] Heart rate 68 /min 68 /min Bon [employer]Mailgun System Inc Diastolic blood 64 mm[Hg] 64 mm[Hg] Bon Sec[facility] rs pressure [facility] Systolic blood 108 mm[Hg] 108 mm[Hg] [place] [facility] pressure [employer] [facility] [employer] Respiratory rate 18 /min 18 /min [facility] urs [employer] [facility] [employer] Heart rate 80 /min 80 /min [facility] [employer] [facility] [employer] Diastolic blood 70 mm[Hg] 70 mm[Hg] [facility] pressure [facility] Systolic blood 98 mm[Hg] 98 mm[Hg] [place] [facility] pressure [employer] [facility] [employer] Respiratory rate 20 /min 20 /min [facility] urs [employer] [facility] [employer] Body temperature 36.56 May 36.56 May [facility] urs [employer] [facility] [employer] Heart rate 78 /min 78 /min Bon [employer]Mailgun System Inc Diastolic blood 60 mm[Hg] 60 mm[Hg] Bon Sec[facility] rs pressure [employer] [facility] [employer] Systolic blood 110 mm[Hg] 110 mm[Hg] [place] pressure [employer] [facility] [employer] Body mass index 48.95 kg/m2 48.95 kg/m2 [facility] ours (BMI) [Ratio] [employer] Body weight 136.533 kg 136.533 kg Bon [employer] System Inc Respiratory rate 18 /min 18 /min [facility] urs [employer] [facility] [employer] Body temperature 36.56 May 36.56 May [facility] urs [employer] [facility] [employer] Heart rate 80 /min 80 /min [facility] [employer] [facility] [employer] Diastolic blood 70 mm[Hg] 70 mm[Hg] Bon Sec[facility] rs pressure [employer] [facility] [employer] Systolic blood 128 mm[Hg] 128 mm[Hg] [place] [facility] pressure [employer] [facility] [employer] Oxygen saturation 98 % 98 % [facility] ours in Arterial blood Bela [employer] by Pulse oximetry System [employer] Body mass index 48.95 kg/m2 48.95 kg/m2 [facility] ours (BMI) [Ratio] [employer] [facility] Body weight 136.533 kg 136.533 kg Bon [employer] Body height 167 cm 167 cm [employer] System Inc Respiratory rate 14 /min 14 /min [facility] urs [employer] [facility] [employer] Body temperature 36.44 May 36.44 May [facility] urs [employer] [facility] [employer] Heart rate 98 /min 98 /min [employer] System Inc Diastolic blood 60 mm[Hg] 60 mm[Hg] Bon Sec[facility] rs pressure [employer] [facility] [employer] Systolic blood 110 mm[Hg] 110 mm[Hg] [place] [facility] pressure [employer] [facility] [employer] Oxygen saturation 96 % 96 % [facility] ours in Arterial blood [employer]aPlenummedia by Pulse oximetry [facility] [employer] Respiratory rate 18 /min 18 /min [facility] urs [employer] [facility] [employer] Body temperature 36.72 May 36.72 May [facility] urs [employer] [facility] [employer] Heart rate 80 /min 80 /min Bon SecMailgun System Inc Diastolic blood 88 mm[Hg] 88 mm[Hg] Bon Sec[facility] rs pressure [employer] System [employer] Systolic blood 128 mm[Hg] 128 mm[Hg] [place] [facility] pressure [employer] System [employer] Body mass index 48.97 kg/m2 48.97 kg/m2 [facility] ours (BMI) [Ratio] [employer] Body weight 136.578 kg 136.578 kg Bon [employer] Body height 167 cm 167 cm [employer] Oxygen saturation 98 % 98 % [facility] ours in Arterial blood Bela [employer] by Pulse oximetry System [employer] Body mass index 48.30 kg/m2 48.30 kg/m2 [facility] ours (BMI) [Ratio] [employer] Body weight 134.718 kg 134.718 kg Bon [employer] Body height 167 cm 167 cm [employer] Respiratory rate 14 /min 14 /min Bon [facility] urs [employer] Body temperature 37.33 May 37.33 May [facility] [employer] Heart rate 100 /min 100 /min [employer] Diastolic blood 68 mm[Hg] 68 mm[Hg] Bon Sec[facility] rs pressure [employer] Systolic blood 118 mm[Hg] 118 mm[Hg] [place] [facility] pressure [employer] Oxygen saturation 98 % 98 % [facility] ours in Arterial blood Bela [employer] by Pulse oximetry System [employer] Body mass index 47.49 kg/m2 47.49 kg/m2 [facility] ours (BMI) [Ratio] [employer] Body weight 132.45 kg 132.45 kg [employer] Body height 167 cm 167 cm [employer] Respiratory rate 12 /min 12 /min [facility] urs [employer] Body temperature 36.44 May 36.44 May [facility] urs [employer] Heart rate 88 /min 88 /min [employer] Diastolic blood 70 mm[Hg] 70 mm[Hg] Bon Sec[facility] rs pressure [employer] Systolic blood 102 mm[Hg] 102 mm[Hg] [place] [facility] pressure [employer] Oxygen saturation 92 % 92 % [facility] ours in Arterial blood Bela [employer] by Pulse oximetry System [employer] Body mass index 45.86 kg/m2 45.86 kg/m2 [facility] ours (BMI) [Ratio] [employer] Body weight 133.811 kg 133.811 kg [employer] Body height 170.8 cm 170.8 cm [employer] Respiratory rate 12 /min 12 /min [facility] urs [employer] Body temperature 36.67 May 36.67 May Bon [facility] urs [facility] Heart rate 88 /min 88 /min Bon [facility] [employer] Diastolic blood 80 mm[Hg] 80 mm[Hg] Bon Secou rs pressure [employer] Systolic blood 120 mm[Hg] 120 mm[Hg] [place] [facility] pressure [employer] Oxygen saturation 95 % 95 % [facility] ours in Arterial blood [facility] by Pulse oximetry System Inc Respiratory rate 18 /min 18 /min Bon [facility] urs [employer] System [employer] Body temperature 36.44 May 36.44 May [facility] urs [employer] [facility] [employer] Heart rate 100 /min 100 /min [employer] Diastolic blood 80 mm[Hg] 80 mm[Hg] Bon Secou rs pressure [employer] Systolic blood 123 mm[Hg] 123 mm[Hg] [place] [facility] pressure [employer] Body mass index 46.99 kg/m2 46.99 kg/m2 [facility] ours (BMI) [Ratio] [employer] Body weight 136.079 kg 136.079 kg Bon [employer] Body height 170.2 cm 170.2 cm [employer] Oxygen saturation 96 % 96 % [facility] ours in Arterial blood [facility] by Pulse oximetry System Inc Body mass index 45.55 kg/m2 45.55 kg/m2 [facility] ours (BMI) [Ratio] [employer] Body weight 132.904 kg 132.904 kg Bon [employer] Body height 170.8 cm 170.8 cm [employer] Respiratory rate 14 /min 14 /min Bon Sec[facility] urs [employer] Body temperature 35.89 May 35.89 May [facility] urs [employer] Heart rate 96 /min 96 /min Bon [employer] Inc Diastolic blood 78 mm[Hg] 78 mm[Hg] Bon Sec[facility] rs pressure [employer] Systolic blood 116 mm[Hg] 116 mm[Hg] [place] [facility] pressure [employer] Oxygen saturation 92 % 92 % [facility] ours in Arterial blood [facility] by Pulse oximetry System Inc Respiratory rate 15 /min 15 /min Bon [facility] urs [employer] System [employer] Heart rate 96 /min 96 /min [employer] Diastolic blood 86 mm[Hg] 86 mm[Hg] Bon Sec[facility] rs pressure [employer] Systolic blood 121 mm[Hg] 121 mm[Hg] [place] [facility] pressure [employer] Body mass index 40.18 kg/m2 40.18 kg/m2 [facility] ours (BMI) [Ratio] [employer] Body weight 127.007 kg 127.007 kg [employer] Body height 177.8 cm 177.8 cm [employer] Body temperature 36.72 May 36.72 May Bon [facility] urs [employer] Body temperature 36.33 May 36.33 May [facility] urs [employer] Oxygen saturation 96 % 96 % [facility] ours in Arterial blood Bela [employer] by Pulse oximetry System Inc Respiratory rate 21 /min 21 /min Bon Sec[facility] urs [employer] Heart rate 85 /min 85 /min [employer] Diastolic blood 88 mm[Hg] 88 mm[Hg] Bon Secou rs pressure [employer] Systolic blood 155 mm[Hg] 155 mm[Hg] [place] pressure [employer] Body mass index 40.18 kg/m2 40.18 kg/m2 [facility] ours (BMI) [Ratio] [employer] Body weight 127.007 kg 127.007 kg [employer] Body height 177.8 cm 177.8 cm [employer] Oxygen saturation 98 % 98 % [facility] ours in Arterial blood [facility] by Pulse oximetry System Inc Body mass index 44.66 kg/m2 44.66 kg/m2 [facility] ours (BMI) [Ratio] [employer] Body weight 128.368 kg 128.368 kg [employer] Body height 169.5 cm 169.5 cm [employer] Respiratory rate 12 /min 12 /min Bon [facility] urs [employer] Body temperature 36.28 May 36.28 May [facility] [employer] Heart rate 68 /min 68 /min [employer] Diastolic blood 80 mm[Hg] 80 mm[Hg] Bon Sec[facility] rs pressure [employer] Systolic blood 122 mm[Hg] 122 mm[Hg] [place] [facility] pressure [employer] [employer] Patient Treatment Plan of Care Planned Activity [...] [facility] Bela Oral Tablet 12:00:00 AM EDT [employer] olanzapine 5 MG Oral [...] Se cours Bela Tablet 12:00:00 AM EDT [employer] [place] Carbonate 300 MG 11/30/2019 [facility] Bela [...] Bela Release Oral Tablet 12:00:00 AM EDT [email or web address] System [employer] Bisacodyl 5 MG Delayed 10/31/2019 [facility] Bela Release Oral Tablet 01:50:17 PM EDT [email or web address] [facility] [employer] Acetaminophen 325 MG Oral 10/29/2019 Francisco Javier n [facility] [place] Tablet 02:44:40 PM EDT Health [facility] Inc sodium chloride (NS) flush 10/29/2019 B on [facility] Bela 5-40 mL 11:01:53 AM EDT Health [employer] Inc 24 HR Bupropion 10/17/2019 [facility] Hydrochloride 150 MG 12:00:00 AM EDT [employer] System [employer] Extended Release Oral Tablet 24 HR Bupropion 10/17/2019 [facility] Hydrochloride 300 MG 12:00:00 AM EDT [employer] System Inc Extended Release Oral Tablet Vraylar 3 mg capsule 09/03/2019 Bon [facility] Bela 12:00:00 AM ED [employer] Amitriptyline Hydrochloride 08/20/2019 [facility] 150 MG Oral Tablet 12:00:00 AM [employer] System [facility] [place] Carbonate 150 MG 08/16/2019 [facility] Oral Capsule 12:00:00 AM EST [employer] Prednisone 50 MG Oral 08/16/2019 Bon Se cours Bela Tablet 12:00:00 AM EST [employer] Cyclobenzaprine 07/21/2019 [facility] hydrochloride 10 MG Oral 12:00:00 AM EST [employer] System Inc Tablet Acetaminophen 325 MG / 07/21/2019 [facility] Bela Oxycodone Hydrochloride 5 12:00:00 AM EST [employer] System Inc MG Oral Tablet VRAYLAR 6 mg capsule 07/07/2019 [facility] Bela 12:00:00 AM EST [employer] valacyclovir 1000 MG Oral 07/17/2018 Francisco Javier n [facility] Bela Tablet 12:00:00 AM EST [employer] Inc Clonazepam 2 MG Oral Tablet Bon [facility] cariprazine (Vraylar) 6 mg B on [facility] I nc 24 HR Bupropion [facility] Bela Hydrochloride 300 MG Health System [facility] Extended Release Oral Tablet fluoxetine HCl (PROZAC PO) B on [facility] ziprasidone 80 MG Oral [facility]
[2020-04-01 15:11] VITALS: BMI 47.4
--- OUTSIDE RECORDS SUMMARY | 2020-04-05 07:06 | XMS ---
:1970 Author Organization [facility] Care Team Providers Name Role Phone RITIKA [...] is protected by Article 27-F of the [place] Public Health law. If you continue you may haveaccess to information: Regarding HIV / AIDS; Provided by facilities licensed or operated by the [facility] Office of Mental Health; or Provided by the [facility] Office for People With Developmental Disabilities. If such information is present, then the following [facility] mandated warning applies: This information has [...] law may result in a fine or alf sentence or both. A general authorization for the release of medical or other information is NOT sufficient authorization for further disclosure. Encounters Encounter Providers Location Date Indications Data Source(s ) Outpatient 01/08/2020 03:30:00 [facility] PM EDT - 01/12/2020 [facility] 10:23:35 AM EDT Patient discharged. Attender: MARIYA CATHERINE 01/01/2020 12:00:00 AM Bon [facility] Attender: MAURICIO 12/30/2019 12:00:00 AM Bon [employer] [facility] Attender: MARIYA CATHERINE 12/29/2019 12:00:00 AM [facility] 12[facility]25[facility]2019 04:00:00 [facility] 06:48:40 [facility] PM EDT Patient discharged. OL 12/25[facility] 11:59:00 PM EDT Attender: MARIYA 12/25/2019 12:00:00 AM [facility] Attender: SUSI LONGO 12/25/2019 12:00:00 AM [facility] Attender: MAURICIO 12/24/2019 12:00:00 AM [facility] Attender: MARIYA 12/22/2019 12:00:00 AM [facility] Attender: SUSI LONGO 12/22/2019 12:00:00 AM [facility] Attender: MAURICIO 12/19/2019 12:00:00 AM [facility] Attender: MARIYA 12/18/2019 12:00:00 AM [facility] Attender: GLADIS FUNEZ 12/18/2019 12:00:00 AM [facility] Attender: SUSI LONGO 12/17/2019 12:00:00 AM [facility] Attender: MAURICIO 12/16/2019 12:00:00 AM [facility] Attender: MARIYA 12/15/2019 12:00:00 AM [facility] Attender: XANDER COLBERT 12/13/2019 12:00:00 AM Bon [facility] Outpatient 12/12/2019 12:00:00 PM Francisco Javier n [facility] EDT - 12/12/2019 [facility] 01:20:23 PM EDT Patient discharged. Attender: HEATHER 12/08/2019 05:55:36 [facility] 01[facility]02[facility]2020 [facility] 12:00:00 AM EDT System In c Inpatient Admitter: RITIKA 12/05/2019 12:00:00 General [facility]T - 12/08/2019 [facility] 03:44:00 PM EDT General Weakness Patient discharged. Outpatient 12/05/2019 12:00:00 AM EDT [facility] Outpatient 12/01/2019 03:45:00 PM EDT - [facility] 12/01/2019 05:01:16 PM EDT Inc Patient discharged. Outpatient 11/14/2019 01:00:00 PM EDT - [facility] 11/18/2019 11:56:43 AM EDT System Inc Patient discharged. Outpatient 11/10/2019 09:00:00 AM EDT - [facility] 11/10/2019 04:44:05 PM EDT System Inc Patient discharged. Inpatient Admitter: RITIKA CANAS 10/29/2019 12:00:00 AM let hargic [facility] EDT - 11/03/2019 [facility] 04:02:00 PM EDT lethargic Patient discharged. Outpatient 09/15/2019 08:22:58 AM EDT [facility] - 09/15/2019 11:59:00 PM Hospital EDT Outpatient 09/10/2019 04:00:00 PM EDT [facility] Outpatient 09/04/2019 03:15:00 PM EDT [facility] Outpatient 08/19/2019 07:31:00 AM EST [facility] ([facility]) Outpatient 08/18/2019 06:35:00 AM EST [facility] ([facility]) Outpatient 08/17/2019 07:16:00 AM EST NEXTGEN ([facility]) Emergency 08/16/2019 12:00:00 AM EST Shortness of Breath [facility] - 08/16/2019 10:45:00 PM Hospital EST Shortness of Breath Patient discharged. Outpatient 08/11/2019 12:05:00 AM EST [facility] Emergency 08/10/2019 12:00:00 AM EST - Chest P ain [facility] 08/11/2019 01:42:00 AM EST Hospital Chest Pain Patient discharged. Outpatient 07/21/2019 04:15:00 PM EST - [facility] 07/22/2019 10:51:43 AM EST System Inc Patient discharged. Immunizations Vaccine Date Status Description Data Source(s) New in 2012. 09/04/2019 completed Influenza Vaccine 09/04/2019 [facility] 12:00:00 AM EDT (Quad) [facility] Medications Medication Brand Start Product Dose Route Administrative Pharmacy [facility] Indications Reaction Description Data Name Date Form [...] EDT dose (after [facility] OLANZapine [facility] (ZyPREXA) modification) S ystem tablet 5 mg on Tue Inc 12/09/19 at 0900, Until Discontinued Medication administered onsite Olmesartan olmesartan 12/09/2019 20 Oral completed h ypertension Take 1 Tab by Bon medoxomil (BENICAR) 12:00:00 AM mg paul th daily [facility] 20 MG Oral 20 mg EDT for 30 days. Bela Tablet tablet Indications: [facility] olmesartan high blood Sys tem (BENICAR) pressure Inc 20 mg tablet hypertension Losartan losartan 12/09/2019 50 Oral active hypertension Take 1 Tab by Bon Potassium (COZAAR) 12:00:00 AM mg mout h daily [facility] 50 MG Oral 50 mg EDT for 30 days. Bela Tablet tablet Indications: [facility] losartan high blood Syste m [...] doses, Ch arity clonazePAM mg First dose [facility] (KlonoPIN) (after last Sy stem tablet 0.5 modification) Inc mg on 12/07/19 at 1600, Last dose on Denise 12/11/19 at 0900 Medication administered onsite olanzapine OLANZapine 12/07/2019 2.5 Oral aborted 2.5 mg, Oral, Bon 2.5 MG Oral (ZyPREXA) 02:00:00 PM mg D AILY, [facility] Tablet tablet 2.5 EDT dose on Sun Bela OLANZapine mg 12/07/19 at [facility] (ZyPREXA) 1400, Until Sys tem tablet 2.5 Discontinued I nc mg Medication administered onsite [place] lithium 12/07/2019 300 Oral active 300 mg , Oral, Bon Carbonate carbonate SR 02:00:00 PM mg 2 TIMES DAILY, [facility] 300 MG (LITHOBID) EDT First dose o n Bela Extended tablet 300 Sun 0 at [facility] Release Oral mg 1400, Until System Tablet Discontinued Inc lithium carbonate SR (LITHOBID) tablet 300 mg Medication administered onsite Losartan losartan 12/07/2019 50 Oral active 50 m g, Oral, Bon Potassium 50 (COZAAR) 01:00:00 PM mg D AILY, [facility] MG Oral tablet 50 EDT dose on Sun Bela Tablet mg 12/07/19 at [facility] losartan 1300, Until Syst em (COZAAR) Discontinued Inc tablet 50 mg Medication administered onsite furosemide 05621-015-53 12/07/2019 20 IntraVENous complete d 20 mg, [...] 12/13/19 at 0900 Medication administered onsite furosemide 99701-916-12 12/06/2019 20 IntraVENous complete d edema 20 [...] il mg Discontinued Medication administered onsite 0.9% 3502-3484-63 12/05/2019 100 IntraVENous aborted 100 mL/hr, at [...] mg tablet Inc Shared psychotic disorder (HCC) [place] lithium 11/30/2019 aborted Bon Carbonate 300 carbonate [...] (DULCOLAX) 5 Inc mg EC tablet cariprazine 758004 11/01/2019 6 mg Oral active 6 m [...] on [facility] hydrocortisone 11/01/19 at [facility] (HYTONE) 2.5 % 1800, Unti l System ointment Discontinued Inc Medication administered onsite Docusate docusate 10/31/2019 200 Oral active 200 mg, Oral, Bon Sodium 100 sodium 02:00:00 PM mg DAILY , [facility] MG Oral (COLACE) EDT dose on Sun C harity Capsule capsule 200 10/31/19 at [facility] docusate mg 1400, Until Syst em sodium [...] ONCE, 1 [facility] (HALDOL) dose, [facility] tablet 5 mg Denise System 10/30/19 [facility] at 2100 Medication administered onsite amitriptyline 10/30/2019 150 mg Oral active 1 50 mg, Oral, Bon (ELAVIL) tablet 09:00:00 PM EV AN BEDTIME, [facility] 150 mg EDT First dose on [facility] ity Denise 10/30/19 at [facility] 2100, Until System I nc Discontinued Medication administered onsite Haloperidol 2 haloperidoL 10/30/2019 2 mg Oral aborted 2 mg, Oral, Bon MG Oral (HALDOL) 08:01:20 PM EVERY 6 [facility] Tablet tablet 2 mg EDT HOURS Ch arity haloperidoL NEEDED, Healt h (HALDOL) Starting Denise Sys tem tablet 2 mg 10/30/19 at [facility] 2000, Until Sun10/31/19 at 2043, Psychosis, Agitation Medication administered onsite [place] lithium 10/30/2019 300 Oral active 300 mg , Oral, Bon Carbonate carbonate 12:00:00 PM mg 2 T IMES DAILY, [facility] 300 MG Oral tablet 300 EDT First d ose on Bela Tablet mg Denise 10/30/[address] [facility] lithium 1200, Until Syste m carbonate Discontinued In c tablet 300 mg Medication administered onsite Clonazepam 1 clonazePAM 10/30/2019 1 mg Oral active 1 mg, Oral, 2 Bon MG Oral (KlonoPIN) 12:00:00 PM TIME S DAILY, [facility] Tablet tablet 1 mg EDT First dose on Bela clonazePAM Denise 10/30/19 at [facility] (KlonoPIN) 1200, Until Sy stem tablet 1 mg Discontinued [facility] Medication administered onsite 0.9% 7356-9553-55 10/29/2019 100 IntraVENous aborted 100 mL/hr, at Bon sodium 02:55:00 PM mL/h 100 mL/hr, [facility] chloride EDT IntraVENous, Jagruti rity infusion CONTINUOUS, Starting Wed System 10/29/19 at [facility] 1455, Until 11/01/19 at 1446 Medication administered onsite 0.4 ML enoxaparin 10/29/2019 40 SubCUTAneous active 40 mg, Bon Enoxaparin (LOVENOX) 02:55:00 PM mg Gallardo bCUTAneous, [facility] sodium 100 injection 40 EDT EVERY 24 Bela MG/ML mg HOURS, First [facility] Prefilled dose on Sun Sys tem Syringe 10/29/19 at [facility] enoxaparin 1455, Until (LOVENOX) Discontinued injection 40 mg Medication administered onsite Acetaminophen acetaminophen 10/29/2019 650 Oral active 650 mg, Oral, Bon 325 MG Oral (TYLENOL) 02:44:40 PM mg E VERY 4 HOURS [facility] Tablet tablet 650 mg EDT NEEDED , Bela acetaminophen Starting We [facility] (TYLENOL) 10[facility]29[facility] mg 1444, Until [facility] Discontinued, Mild Pain, Fever Medication administered onsite sodium 94969-846-09 10/29/2019 mL IntraVENous active 5-40 mL, Bon chloride 02:00:00 PM IntraVENo us, [facility] (NS) flush EDT EVERY 8 Charit y 5-40 mL HOURS, First dose on Wed System 10/29/19 at [facility] 1400, Until Discontinued Medication administered onsite sodium 47193-257-61 10/29/2019 mL IntraVENous active 5-40 mL, Bon [...] XL) 150 mg tablet Vraylar 3 mg 94441-013-62 09/03/2019 6 Oral aborted depre ssion Take [...] EST NOW, 1 Bela chewable tablet dose, [facility] 162 mg 08/16/19 System at 2103 Inc Medication administered onsite famotidine 08/16/2019 20 IntraVENous aborted 20 mg, Bon (PF) (PEPCID) 09:02:00 PM mg Intr aVENous, [facility] 20 mg in 0.9% EST EVERY 12 Ch arity sodium HOURS, First Healt h chloride 10 dose on [facility] ystem mL injection 08/16/19 at I nc 2102, Until Discontinued Medication administered onsite methylPREDNISolone [id number] 08/16/2019 125 IntraVENous comple hyun 125 mg, Bon (PF) (Solu-MEDROL) 09:02:00 PM mg IntraVENous, [facility] injection 125 mg EST NOW, 1 d ose, Bela 08/16/19 Health at 2102 System Inc Medication administered onsite 0.9% 1268-7882-50 08/16/2019 1000 IntraVENous completed 1,000 mL, at [...] mg tablet for 3 System days. Inc [place] lithium 08/16/2019 2 Oral active Take 2 [...] Health tablet 162 mg Sun System 08/10/19 [facility] at 2352 Medication administered onsite Cyclobenzaprine [...] back pain due to trauma VRAYLAR 6 11004-163-01 07/07/2019 6 mg Oral aborted Bipolar Take [...] FOR 10 DAYS Herpes zoster cephalicus cariprazine 203557 6 mg Oral aborted Take 6 m g [facility] (Vraylar) 6 mg by mouth C harity capsule daily. Health System Trot ziprasidone 80 MG ziprasidone 80 mg Oral aborted Take 80 mg [facility] Oral Capsule (GEODON) 80 mg by mouth Bela ziprasidone capsule two (2) He alth (GEODON) 80 mg times Syst em Inc capsule daily (with meals). fluoxetine HCl 60 mg Oral aborted Take 6 0 mg [facility] (PROZAC PO) by mouth Moira ity daily. Health [facility] Clonazepam 2 MG clonazePAM 1 mg Oral [...] boland [facility] [id number] [facility] [id number] [facility] HEALTH PLAN [id number] [facility] HMO [id number] [employer] HEALTH PLAN Commerical [id number] [facility] [id number] PLAN [facility] [id number] 900 HEALTH PLAN [facility] [id number] PLAN [facility] [id number] 900 HEALTH PLAN POLO [id number] POLO [id number] [employer]IG[employer] PPO [id number] [facility] PPO [id number] [place] 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 [id number] COMPENSATION [facility] HEALTH PLAN O [id number] 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 [id number] COMPENSATION [facility] [id number] GENERIC [id number] COMMERCIAL [facility] [id number] PLAN [facility] GENERIC Commerical [id number] [facility] PPO [id number] PLAN [facility] [id number] PLAN 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 [id number] COMPENSATION [facility] HEALTH [facility] [id number] [facility] HEALTH PLAN PPO [id number] [facility] Problems, Conditions, and Diagnoses Code Display Name Description Problem Type Effective Data Dates Source(s) T88.7XXA Omb-jcuz-kwlauii Vuv-pujl-zgxsbwg [id number] 12/05/2019 Francisco Javier n [facility] adverse reaction to adverse reaction to 12:00:0 0 AM Bela medication medication [facility] [employer] T50.905A Adverse drug Adverse drug [id number] 12/05/2019 [place] s reaction, initial reaction, initial 12:00:00 AM [facility] encounter encounter [facility] [employer] G93.40 Encephalopathy acute Encephalopathy acute [id number] 12/04 [facility] 12:00:00 AM Bela [employer] F31.4 Bipolar disorder with Bipolar disorder [id number] 10/29/19 20 [facility] severe depression with severe 12:00:00 AM [facility] depression [employer] E55.9 Vitamin D deficiency Vitamin D deficiency 15326173 09/03 [facility] 12:00:00 AM Bela [employer] F41.8 Mixed anxiety and Mixed anxiety and 20747325 09/04/2019 [facility] depressive disorder depressive disorder 12:00:0 0 AM [facility] E66.01 Morbid obesity Morbid obesity 15489357 07/21/2019 Bon [facility] 12:00:00 AM [facility] 3Scan [facility] Z98.84 Status post gastric Status post gastric [id number] 020 [facility] bypass for obesity bypass for obesity 12:00:00 AM [facility] F32.9 Depressive disorder Depressive disorder [id number] 020 [facility] 12:00:00 AM [facility] 3Scan [facility] F31.9 Bipolar disorder Bipolar disorder [id number] 07/21/2019 Francisco Javier n [facility] 12:00:00 AM [facility] F41.9 Anxiety Anxiety 37053801 07/21/2019 [facility] 12:00:00 AM [facility] [employer]Scan [facility] G25.2 Other specified forms Other specified Diagnosis 0 [facility] of tremor forms of tremor 03:17:29 PM [facility] F31.4 Bipolar disorder, Bipolar disorder, Diagnosis 12/25/2019 [facility] - Good current episode current episode 04:40:00 PM [facility] depressed, severe, depressed, severe, EDT Hospital without psychotic without psychotic features features F41.9 Anxiety disorder, Anxiety disorder, Diagnosis 12/25/2019 [facility] unspecified unspecified 04:04:24 PM [facility] R25.1 Tremor, unspecified Tremor, unspecified Diagnosis [facility] 04:04:24 PM [facility] Z98.84 Bariatric surgery Bariatric surgery Diagnosis 12/25/2019 [facility] status status 04:04:24 PM [facility] T88.7XXA Unspecified adverse Unspecified adverse Diagnosis [facility] - Good effect of drug or effect of drug or 11:10:37 AM [employer] medicament, initial medicament, initial EDT Hospital encounter encounter G93.40 Encephalopathy, Encephalopathy, Diagnosis 12/05/2019 [facility] - Good unspecified unspecified 11:10:37 AM [facility] R41.82 Altered mental Altered mental Diagnosis 12/05/2019 [facility] - Good status, unspecified status, unspecified 11:10:3 7 AM [facility] F51.04 Psychophysiologic Psychophysiologic Diagnosis 11/14/2019 [facility] insomnia insomnia 01:22:52 PM [facility] F32.2 Major depressive Major depressive Diagnosis 09/15/2019 [facility] - Good disorder, single disorder, single 08:22:58 AM S amaritan episode, severe episode, severe EDT Hosp ital without psychotic without psychotic features features F41.8 Other specified Other specified Diagnosis 09/04/2019 [facility] anxiety disorders anxiety disorders 03:49:01 PM [facility] F32.2 Major depressive Major depressive Diagnosis 09/04/2019 Francisco Javier n [facility] disorder, single disorder, single 03:49:01 PM C harity episode, severe episode, severe EDT Heal th without psychotic without psychotic System Inc features features Z23 Encounter for Encounter for Diagnosis 09/04/2019 [facility] immunization immunization 03:49:01 PM [facility] T78.40XA Allergy, unspecified, Allergy, Diagnosis 08/16/2019 [facility] initial encounter unspecified, initial 08:39:16 PM [facility] R06.00 Dyspnea, unspecified Dyspnea, unspecified Diagnosis 08/10 [facility] 11:27:27 PM [facility] F31.75 Bipolar disorder, in Bipolar disorder, in Diagnosis 07/21 [facility] partial remission, partial remission, 04:40:28 PM [facility] most recent episode most recent episode [facility] Surgeries/Procedures Procedure Description Date Indications Data Source(s) HC HC Routine 12/25/2019 Bipolar 12/25/2019 Bipolar Francisco Javier n LITHIUM LITHIUM 4:41 PM EDT disorder 04:41:00 PM disorde r [facility] with severe EDT with severe [facility] depression depression He alth (HCC) ([facility]) System Inc Bipolar disorder with severe depression ([facility]) GLUCOSE, POC GLUCOSE, POC Routine 12/08/2019 12/08/2019 Bon 11:35 AM 11:35:00 AM [facility] METABOLIC Routine 12/07/2019 12/07/2019 Bon PANEL, BASIC PANEL, BASIC 4:40 AM EDT 04:40:00 A M [facility] EEG 12-26 HR EEG 12-26 HR Routine 12/06/2019 12/06/2019 Bon W/VIDEO W/VIDEO 10:25 AM 10:25:08 AM [facility] LITHIUM Routine 12/06/2019 12/06/2019 Bon 4:25 AM EDT 04:25:00 [facility] LACTIC ACID HC LACTIC ACID STAT 12/05/2019 020 Bon 7:20 PM EDT 07:20:00 [facility] EDT [facility] HC AMMONIA HC AMMONIA STAT 12/05/2019 12/05/2019 Bon 7:20 PM EDT 07:20:00 PM [facility] BRAIN WO MRI BRAIN WO STAT 12/05/2019 12/05/2019 Bon CONT CONT 4:50 PM EDT 04:50:12 PM [facility] EEG 12-26 HR EEG 12-26 HR STAT 12/05/2019 12/05/2019 Bon W/VIDEO W/VIDEO 3:19 PM EDT 03:19:24 PM [facility] CULTURE, URINE CULTURE, URINE Routine 12/05/2019 020 Bon 2:45 PM EDT 02:45:00 PM [facility] URINALYSIS W/ URINALYSIS W/ STAT 12/05/2019 0 Bon RFLX RFLX 2:45 PM EDT 02:45:00 PM [facility]COPIC [facility] BILIRUBIN, BILIRUBIN, Routine 12/05/2019 12/05/2019 Bon CONFIRM CONFIRM 2:45 PM EDT 02:45:00 [facility] LACTIC ACID HC LACTIC ACID STAT 12/05/2019 020 Bon 12:40 PM 12:40:00 PM [facility] CULT[facility] HC CULTURE STAT 12/05/2019 12/05/2019 Bon BLOOD BLOOD 12:38 PM 12:38:00 PM Sec ours EDT EDT [facility] PROTHROMBIN PROTHROMBIN STAT 12/05/2019 12/05/2019 Bon TIME + INR TIME + INR 12:38 PM 12:38:00 PM [facility] EDT [facility] CBC WITH CBC WITH STAT 12/05/2019 12/05/2019 Bon AUTOMATED DIFF AUTOMATED DIFF 12:38 PM 12:38:00 PM [facility] EDT EDT [facility] HC TROPONIN I HC TROPONIN I STAT 12/05/2019 0 Bon QUANT QUANT 12:38 PM 12:38:00 PM Sec ours EDT EDT [facility] METABOLIC METABOLIC STAT 12/05/2019 12/05/2019 Bon PANEL, PANEL, 12:38 PM 12:38:00 PM Sec ours COMPREHENSIVE COMPREHENSIVE EDT EDT [facility] MAGNESIUM MAGNESIUM STAT 12/05/2019 12/05/2019 Bon 12:38 PM 12:38:00 PM Sec ours EDT EDT [facility] HC LITHIUM HC LITHIUM STAT 12/05/2019 12/05/2019 Bon 12:38 PM 12:38:00 PM Sec ours EDT EDT [facility] CT HEAD WO CT HEAD WO STAT 12/05/2019 12/05/2019 Bon CONT CONT 12:30 PM 12:30:54 PM Sec ours EDT EDT [facility] HC CULTURE HC CULTURE STAT 12/05/2019 12/05/2019 Bon BLOOD BLOOD 12:30 PM 12:30:00 PM Sec ours EDT EDT [facility] XR PELV AP XR PELV AP STAT 12/05/2019 12/05/2019 Bon ONLY ONLY 12:14 PM 12:14:58 PM Sec ours EDT EDT [facility] XR CHEST PORT XR CHEST PORT STAT 12/05/2019 0 Bon 12:14 PM 12:14:51 PM Sec ours EDT EDT [facility] RT--OXYGEN RT--OXYGEN STAT 12/05/2019 12/05/2019 Bon CANNULA CANNULA 11:20 AM 11:20:37 AM Sec ours EDT EDT [facility] EEG DIGITAL EEG DIGITAL Routine 12/05/2019 12/05/2019 Bon ANALYSIS ANALYSIS 11:10 AM 11:10:37 AM S [facility] EDT EDT [facility] CBC WITH CBC WITH STAT 10/30/2019 10/30/2019 Bon AUTOMATED DIFF AUTOMATED DIFF 6:40 AM EDT 06:40: 00 AM [facility] EDT [facility] METABOLIC METABOLIC STAT 10/30/2019 10/30/2019 Bon PANEL, BASIC PANEL, BASIC 6:40 AM EDT 06:40:00 A M [facility] EDT [facility] URINALYSIS W/ URINALYSIS W/ STAT 10/29/2019 0 Bon RFLX RFLX 6:34 PM EDT 06:34:00 PM [facility] MICROSCOPIC MICROSCOPIC EDT [facility] XR CHEST PORT XR CHEST PORT STAT 10/29/2019 0 Bon 12:09 PM 12:09:04 PM Sec ours EDT EDT [facility] CT HEAD WO CT HEAD WO STAT 10/29/2019 10/29/2019 Bon CONT CONT 11:47 AM 11:47:42 AM Sec ours EDT EDT [facility] HC GLUCOSE HC GLUCOSE Routine 10/29/2019 10/29/2019 Bon POCT POCT 11:26 AM 11:26:00 AM Sec ours EDT EDT [facility] PROTHROMBIN PROTHROMBIN STAT 10/29/2019 10/29/2019 Bon TIME + INR TIME + INR 10:45 AM 10:45:00 AM [facility] EDT EDT [facility] CBC WITH CBC WITH STAT 10/29/2019 10/29/2019 Bon AUTOMATED DIFF AUTOMATED DIFF 10:45 AM 10:45:00 AM [facility] EDT EDT [facility] HC PARTIAL HC PARTIAL STAT 10/29/2019 10/29/2019 Bon THROMBOPLASTIN THROMBOPLASTIN 10:45 AM 10:45:00 AM [facility] / PTT / PTT EDT EDT [facility] METABOLIC METABOLIC STAT 10/29/2019 10/29/2019 Bon PANEL, PANEL, 10:45 AM 10:45:00 AM Sec [facility] COMPREHENSIVE COMPREHENSIVE EDT EDT [facility] HC LITHIUM HC LITHIUM STAT 10/29/2019 10/29/2019 Bon 10:45 AM 10:45:00 AM Sec ours EDT EDT [facility] XR SPINE LUMB XR SPINE LUMB [...] [facility] 9:00 PM EST 02:00:00 AM [facility] I nc CBC WITH AUTOMATED CBC WITH STAT 08/16/2019 0 [facility] DIFF AUTOMATED DIFF 9:00 PM EST 02:00:00 AM [facility] I nc TROPONIN I TROPONIN I STAT 08/16/2019 08/17/2019 [facility] 9:00 PM EST 02:00:00 AM [facility] I nc METABOLIC PANEL, METABOLIC PANEL, STAT 08/16/2019 [facility] COMPREHENSIVE COMPREHENSIVE 9:00 PM EST 02:00:00 AM [facility] I nc MAGNESIUM MAGNESIUM STAT 08/16/2019 08/17/2019 [facility] 9:00 PM EST 02:00:00 AM [facility] I nc LITHIUM LITHIUM STAT 08/16/2019 08/17/2019 [facility] 9:00 PM EST 02:00:00 AM [facility] I nc INFLUENZA A <td><content ID="[id number]">INFLUENZA A & B 07/26 [facility] & B AG AG (RAPID 05:18:00 [facility] (RAPID TEST) TEST)</content></td><td>STAT</td><td>08/11/2019 EST [facility] 12:18 AM EST</td><td></td><td><paragraph Health styleCode="header">Results for this procedure are System in the <content Inc styleCode="[email or web address]-[id number]">results section</content>.</paragraph></td> PROTHROMBIN TIME + PROTHROMBIN TIME STAT 08/11/2019 0 08/11/2019 [facility] INR + INR 12:01 AM EST 05:01:00 AM [facility] nc D DIMER D DIMER STAT 08/11/2019 08/11/2019 [facility] 12:01 AM EST 05:01:00 AM [facility] nc CBC WITH AUTOMATED CBC WITH STAT 08/11/2019 0 [facility] DIFF AUTOMATED DIFF 12:01 AM EST 05:01:00 AM [facility] nc PTT PTT STAT 08/11/2019 08/11/2019 [facility] 12:01 AM EST 05:01:00 AM [facility] nc TROPONIN I TROPONIN I STAT 08/11/2019 08/11/2019 [facility] 12:01 AM EST 05:01:00 AM [facility] nc METABOLIC PANEL, METABOLIC PANEL, STAT 08/11/2019 [facility] COMPREHENSIVE COMPREHENSIVE 12:01 AM EST 05:01:0 0 AM [facility] nc MAGNESIUM MAGNESIUM STAT 08/11/2019 08/11/2019 [facility] 12:01 AM EST 05:01:00 AM [facility] nc LITHIUM LITHIUM STAT 08/11/2019 08/11/2019 [facility] 12:01 AM EST 05:01:00 AM [facility] nc LACTIC ACID LACTIC ACID STAT 08/11/2019 08/11/2019 [facility] 12:01 AM EST 05:01:00 AM [facility] nc BNP BNP STAT 08/11/2019 08/11/2019 [facility] 12:01 AM EST 05:01:00 AM [facility] nc RT--OXYGEN CANNULA RT--OXYGEN STAT 08/10/2019 020 [facility] CANNULA 11:51 PM EST 04:51:27 AM [facility] nc EKG, 12 LEAD, EKG, 12 LEAD, STAT 08/10/2019 0 [facility] INITIAL INITIAL 10:14 PM EST 03:14:27 AM [facility] I nc Results ID Date Data Source [id number] 03/29/2020 08:58:00 AM EDT [facility] Name Value Range Interpretation Description Data Sup porting Code Source(s) Document(s ) SARS [facility] coronavirus 2 RNA This lab was ordered by [facility] and reported by [facility]. ID Date Data Source [id number] 03/25/2020 09:42:00 AM EDT [facility] Name Value Range Interpretation Description Data Sup porting Code Source(s) Document(s ) SARS [facility] coronavirus 2 RNA This lab was ordered by [facility] and reported by [facility]. ID Date Data Source [id number] 03/22/2020 09:00:00 AM EDT [facility] Name Value Range Interpretation Description Data Sup porting Code Source(s) Document(s ) SARS [facility] coronavirus 2 RNA This lab was ordered by [facility] and reported by [facility]. ID Date Data Source [id number] 03/19/2020 10:37:00 AM EDT [facility] Name Value Range Interpretation Description Data Sup porting Code Source(s) Document(s ) SARS [facility] coronavirus 2 RNA This lab was ordered by [facility] and reported by [facility]. ID Date Data Source [id number] 03/15/2020 10:30:00 AM EDT [facility] Name Value Range Interpretation Description Data Sup porting Code Source(s) Document(s ) SARS [facility] coronavirus 2 RNA This lab was ordered by [facility] and reported by [facility]. ID Date Data Source [id number] 03/12/2020 12:00:00 PM EDT [facility] Name Value Range Interpretation Description Data Sup porting Code Source(s) Document(s ) SARS [facility] coronavirus 2 RNA This lab was ordered by [facility] and reported by [facility]. ID Date Data Source [id number] 03/08/2020 10:18:00 AM EDT [facility] Name Value Range Interpretation Description Data Sup porting Code Source(s) Document(s ) SARS [facility] coronavirus 2 RNA This lab was ordered by [facility] and reported by [facility]. ID Date Data Source [id number] 03/04/2020 09:50:00 AM EDT [facility] Name Value Range Interpretation Description Data Sup porting Code Source(s) Document(s ) SARS [facility] coronavirus 2 RNA This lab was ordered by [facility] and reported by [facility]. ID Date Data Source [id number] 03/02/2020 12:15:00 PM EDT [facility] Name Value Range Interpretation Description Data Sup porting Code Source(s) Document(s ) SARS [facility] coronavirus 2 RNA This lab was ordered by [facility] and reported by [facility]. ID Date Data Source [id number] 02/27/2020 09:15:00 AM EDT [facility] Name Value Range Interpretation Description Data Sup porting Code Source(s) Document(s ) SARS [facility] coronavirus 2 RNA This lab was ordered by [facility] and reported by [facility]. ID Date Data Source [id number] 02/23/2020 11:40:00 AM EDT [facility] Name Value Range Interpretation Description Data Sup porting Code Source(s) Document(s ) SARS [facility] coronavirus 2 RNA This lab was ordered by [facility] and reported by [facility]. ID Date Data Source [id number] 02/19/2020 09:56:00 AM EDT [facility] Name Value Range Interpretation Description Data Sup porting Code Source(s) Document(s ) SARS [facility] coronavirus 2 RNA This lab was ordered by [facility] and reported by [facility]. ID Date Data Source [id number] 02/16/2020 08:40:00 AM EDT [facility] Name Value Range Interpretation Description Data Sup porting Code Source(s) Document(s ) SARS [facility] coronavirus 2 RNA This lab was ordered by [facility] and reported by [facility]. ID Date Data Source [id number] 02/13/2020 10:05:00 AM EDT [facility] Name Value Range Interpretation Description Data Sup porting Code Source(s) Document(s ) SARS [facility] coronavirus 2 RNA This lab was ordered by [facility] and reported by [facility]. ID Date Data Source [id number] 02/09/2020 10:25:00 AM EDT [facility] Name Value Range Interpretation Description Data Sup porting Code Source(s) Document(s ) SARS [facility] coronavirus 2 RNA This lab was ordered by [facility] and reported by [facility]. ID Date Data Source [id number] 01/25/2020 09:20:00 AM EDT [facility] Name Value Range Interpretation Description Data Sup porting Code Source(s) Document(s ) 2019 Novel [facility] Coronavirus RNA Interpretation Unspecified Specimen Qualitative CATA Probe Detection This lab was ordered by [facility] and reported by [facility]. ID Date Data Source [id number] 12/25/2019 05:54:30 PM EDT [facility] Name Value Range Interpretation Description Data Sup porting Code Source(s) Document(s ) [place] 0.38 0.6-1.2 Below low normal [facility] [Moles/volu MMOL/L [facility]] in Hospital Serum or Plasma ID Date Data Source [id number] 12/23/2019 01:50:56 PM EDT [facility] Discharge SummaryPatient: Maxwell Mendieta Xiao mackey Sex: male DOA: 12/05/2019Date of : 1970 A ge: 49 y.o. LOS: LOS: 3 daysAdmit Date: 12/05/2019Discharge Date: 12/08/2019 Admission Diagnoses: Encephalopathy acute [G93.40];Iec-hggz-ezceccs adversereactio n to medication [T88.7XXA];Twl-kcrb-tmwwhox adverse reaction tomedication [T88.7XXA] Discharge Diagnoses: #1 [...] ICD-10-CM: T50.905AICD -9-CM: E947.9 12/05/2019 - Present Xlj-rgez-nxgzone adverse reaction to med ication ICD-10-CM: T88.2QFFKAJ-7-FM: 995.20 12/05/2019 - Present Bipolar disorder wit [...] E66.01ICD-9-CM: 278.01 07/19/2018 - Present Spells ICD-10-CM: [id number]: IMO00 01 04/08/2016 - Present Seizure disorder [...] Supporting Document(s ) ID Date Data Source [id number] 12/09/2019 02:14:04 PM EDT [facility] referral made. Walker order faxed t o [facility] and [facility] do NOT acc ept pts insurance.Faxed to Moriah at [facility] at FAX [phone]. She reports they ne ed to get authfor walker. Have instucted pt to buy own walker IF not authorized.He i s agreeable to buying walker if needs to.Care Management InterventionsPCP Verified by CM: YesTransition of Care Consult (CM Consult): [facility] Home Car e: YesCurrent Support Network: Own Home, Lives with SpouseThe Patient and/or Prachi ent Finance Consultant was Provided with a Choice of Providerand Agrees with the Discharge Plan?: YesFreedom of Choice List was Provided with Basic Dialogue that Suppor ts thePatient's Individualized Plan of Care/Goals, Treatment Preferences and Sh aresthe Quality Data Associated with the Providers?: YesVeteran Resource Informat ion Provided?: RefusedDischarge LocationDischarge Placement: Home with [facility])Pt is discharged , picking him up. reports she has phone number timbo pt a follow up psych appt. [facility] to visit. will buy walker [...] Range Interpretation Code Description Data [facility] rce(s) Supporting Document(s ) ID Date Data Source [id number] 12/08/2019 03:06:17 PM EDT [facility] I have reviewed discharge instructions w ith the patient. The patient verbalizedunderstanding.Discussed with t he patient and all questioned fully answered. He will call me ifany problems arise.If you experience chest pain call [address]. [address] yourself.Patient armband removed a nd shredded. IV removed and discharged home stable. Name Value Range Interpretation Code Description Data [facility] rce(s) Supporting Document(s ) ID Date Data Source [id number] 12/08/2019 03:02:56 PM EDT [facility] Per your note, pt with acute encephalopa thy and toxic Serum [place] level.Please specify the type of encephalopathy in yo ur progress notes: Toxic encephalopathy due to lithium Metabolic encephalopathy due to Other cause (please specify) Clinically unable to determine UnknownPLEASE DOCUM ENT ANY ADDITIONAL DIAGNOSES AND/OR SPECIFICITY IN THE PROGRESSNOTES AND/OR DISCHARGE SUMMARY. Name Value Range Interpretation Code Description Data [facility] rce(s) Supporting Document(s ) ID Date Data Source [id number] 12/08/2019 02:40:45 PM EDT [facility] Problem: SuicideGoal: *STG: Remains safe in hospital12/08/2019 [...] Ru Mosher: Progressing Towards GoalGoal: *LTG: Identifies [employer] II12/08/2019 1440 by Ru Mosher: Resolved/Met12/08/2019 1439 by [...] Fall R isk and appropriate [facility]/08/2019 1440 by Divya Mosherome: Resolved/MetNote: Fall Risk [...] in [facility].12/08/2019 1440 by Ru Mosher: Resolved/MetNote: Pressure Injury [...] Supporting Document(s ) ID Date Data Source [id number] 12/08/2019 02:40:17 PM EDT [facility] Problem: SuicideGoal: *STG: Remains safe in hospitalOutcome: [...] Document Harsh Scale and appropriate interventions in [facility].Outcome: P rogressing Towards GoalNote: [...] Supporting Document(s ) ID Date Data Source [id number] 12/08/2019 01:18:54 PM EDT [facility] Daily Progress NoteAdmit Date: Hospital day: .tdSubjective:Psycgm Neuro,and PT assessments reviewed. Patie nt qualifies for discharge. Wifecalled, will bring in clothes. New medical regimen di scussed with the . Willneed [place] level later this week.Current Facility-Adminis tered MedicationsMedication [...] past 8 hrs: BP Temp Pulse Resp IqE26712/07 0816 - - - - 96 %12/08/19 [...] initial encounter (12/05/2019)Active Problems: Encephalopathy acute (12/05/2019) Llk-qvkz-fjxaelz adve rse reaction to medication (12/05/2019)Plan: day of discharge. Name Value Range Interpretation Code Description Data [facility] rce(s) Supporting Document(s ) ID Date Data Source [id number] 12/08/2019 12:09:30 PM EDT [facility] Problem: Mobility Impaired (Adult and Pe diatric)Goal: [...] y.o. male)Date: 12/08/2019Primary Diagnosis: E ncephalopathy acute [G93.40]Cae-pehk-zlyrfck adverse reaction to medication [T88.7XXA ]Kex-nfmh-bueofic adverse reaction to medication [T88.7XXA]Precautions: Fall ASSESSMENT [...] morbidi ty or mortality cardiac cath at [facility] approx 6-8 months ago Other unknown and [...] NoneCritical Beh avior:Neurologic State: AlertOrientation Level: Oriented B1Jazrmyetv: Appropriate for age attention/concentration;Follows commandsSafety/Judgement: Decreased awar [...] Supporting Document(s ) ID Date Data Source [id number] 12/08/2019 11:48:26 AM EDT [facility] Name Value Range Interpretation Description Data Sup porting Code Source(s) Document(s ) Glucose 132 MG/DL 65-110 Above high normal [facility] [Mass/volume] [facility] in Blood by Hospital Automated test strip ID Date Data Source [id number] 12/08/2019 10:35:45 AM EDT [facility] S/O Patient has shown improvement. He re ports that medications are helping him.He denies any side effectsHe denies any cecilia cidal thoughtsHe reports that he sees a psychiatrist [facility] 300 mg bid [place] level in two days Will increase Zyprexa 5 mg Will follow up as requested Name Value Range Interpretation Code Description Data [facility] rce(s) Supporting Document(s ) ID Date Data Source [id number] 12/08/2019 07:28:52 AM EDT [facility] Bedside and Verbal shift change report g yesseniaen to SUSI Hurley (oncoming nurse) Annalise DE LEON RN (offgoing nurse). Repor t included the followinginformation SBAR, Kardex, MAR and Recent Results. Name Value Range Interpretation Code Description Data [facility] rce(s) Supporting Document(s ) ID Date Data Source [id number] 12/07/2019 08:26:02 PM EDT [facility] Problem: Falls - Risk ofGoal: *Absence o [...] Harsh Scale and appropriate interventio ns in [facility].Outcome: Progressing Towards GoalNote: Pressure Injury Interv [...] Range Interpretation Code Description Data [facility] rce(s) Supporting Document(s ) ID Date Data Source [id number] 12/07/2019 07:05:28 PM EDT [facility] Verbal shift change report given to Chandrakant Cox RN (oncoming nurse) by Steven Villalobos RN (offgoing nurse). Report inc luded the following information SBAR, Kardex,Intake/Output, MAR, Recent Result s and Cardiac Rhythm on telemetry. Name Value Range Interpretation Code Description Data [facility] rce(s) Supporting Document(s ) ID Date Data Source [id number] 12/07/2019 01:30:56 PM EDT [facility] Trent Jacob MD[address] [place] [address] [id number].Pureshield Progress NotePatient: Maxwell Bray Sex: male DOA: [...] (LOVENOX) injection 40 mg 40 mg SubCUTAneous R01GTocfhvkti:Visit VitalsBP 153/85 (BP 1 Location: Left arm, BP Prachi ent Position: At rest)Pulse 96Temp 98.7 F (37.1 C)Resp 20Ht 5' 5.75" (1.67 m)Wt 3 01 lb 1.6 oz (136.6 kg)SpO2 96%BMI 48.97 kg/m Body mass index is 48.97 kg/m .Patient V itals for the past 24 hrs: Temp Pulse Resp BP BqR17012/07/19 1249 - 96 - 153/85 - 0 [...] the time notated as "note time" in [facility]. 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 Seizure disorder ([facility]) G40.909 Spells [id number] Severe obesity ([facility]) E66.01 Depression F32.9 Anxiety F41.9 Bipolar disorder (HCC) F31.9 Depressive disorder F32.9 Status post g astric bypass for obesity Z98.84 Morbid obesity (HCC) E66.01 Mixed anxiety and depressive disorder F41.8 Vitamin D deficiency E55.9 Bipolar disorder with severe depression (HCC) F31.4 Encephalopathy acute G93.40 Adverse drug reaction, ini tial encounter T50.905A Dva-mify-fnrbbiu adverse reaction to medication T88.7XXA 49 year [...] Range Interpretation Code Description Data [facility] rce(s) Supporting Document(s ) ID Date Data Source [id number] 12/07/2019 01:02:36 PM EDT [facility] Pt seen and discussed with Dr Canas .Pt is tearful flat and denies any suicidal thoughts , has been depressed withlithiu m on hold , No Vraylar and he is unable to get his ECT at [facility] And no w will be with [facility] with Dr Womack his lithium level is un therape utic range I will start on lithium , add 2.5mg of zyprexa and lower his klonopin And increase his elavil to 200 mg HSWill get pt followed up with Psychiatry Name Value Range Interpretation Code Description Data [facility] rce(s) Supporting Document(s ) ID Date Data Source [id number] 12/07/2019 12:52:32 PM EDT [facility] Problem: Fluid Volume - Risk of, Imbalan cedGoal: *Balanced intake and outputOutcome: Progressing Towards GoalProblem: Patient Education: Go to Patient Education ActivityGoal: Patient/Family EducationOu tcome: Progressing Towards Goal Name Value Range Interpretation Code Description Data [facility] rce(s) Supporting Document(s ) ID Date Data Source [id number] 12/07/2019 12:45:20 PM EDT [facility] Problem: Falls - Risk ofGoal: *Absence o [...] Supporting Document(s ) ID Date Data Source [id number] 12/07/2019 12:24:47 PM EDT [facility] Daily Progress NoteAdmit Date: Hospital day: [...] injection 40 mg 40 mg SubCUTA neous Z60SFwalxtyuo:Patient Vitals for the past 8 hrs: BP Temp Pulse Resp YhU82612/06 0956 147/86 98.7 F (37.1 C) 95 [...] initial encounter (12/05/2019)Active Problems: Encephalopathy acute (12/05/2019) Rgs-oznb-urwoems adve rse reaction to medication (12/05/2019)Plan:To increase activity, diet,klonopin. Start Losartan Name Value Range Interpretation Code Description Data [facility] rce(s) Supporting Document(s ) ID Date Data Source [id number] 12/07/2019 10:13:28 AM EDT [facility] LTM EEG branch logistics supervisor DC'd per Dr. Jacob. Name Value Range Interpretation Code Description Data [facility] rce(s) Supporting Document(s ) ID Date Data Source [id number] 12/07/2019 10:08:27 AM EDT [facility] [place], [place] [address]OFKHHIP: MAXWELL BRAYMRN: [id number]: [id number]#: [id number] DATE: 12/05/2019LONG TERM MONITORING VIDEO DANCE DIRECTOR: Riky Rodriguez HISTORY: The patient is a [...] montages. Digital analysis was performed employing an CRAVE neuralnetwork program with parameterization and statistical analysi [...] seen, that attenuates with eye opening.There was ohen-oe-jmbwlgyn gener alized background slowing.There was no clear focal slowing.ACTIVATION TECHNIQUES: Ph otic stimulation and hyperventilation were notperformed.SLEEP: During drowsiness, there is mild attenuation and slowing of thebackground rhythm. There was normal sleep seen including symmetric vertexwaves, sleep spindles, and K-complexes.OTHER AC TIVITY: There were no clear epileptiform discharges and no seizures orclinical ev ents recorded.DIGITAL ANALYSIS: Variable spectral pattern without significant lef v-sy-qyqrrgygdygptapf. Spikes were artifact in nature.DECEMBER 06 DAILY [...] the awake and asleep states due to foet-hg-oiwpcmie diffuse cerebraldysfunc tion that improves to mild over the course of the recording. TRENT JACOB, MDDD: #12/06/2019 10:21:35/SS /[id number]/[id number] #: [id number] / [id number] Name Value Range Interpretation Code Description Data [facility](s) Supporting Document(s ) ID Date Data Source [id number] 12/07/2019 07:45:20 AM EDT [facility] Bedside and Verbal shift change report cristi Dove RN (3Loria) (oncomingnurse) by Vy Green RN (offgoing nurse). Report included the following information SBAR, Kardex, MARand Recent Results. Name Value Range Interpretation Code Description Data [facility](s) Supporting Document(s ) ID Date Data Source [id number] 12/07/2019 07:22:41 AM EDT [facility] All leads and head wrapping intact. Day 2 LTM complete. Awaiting instructions tocontinue for day 3 or DC. Name Value Range Interpretation Code Description Data [facility](s) Supporting Document(s ) ID Date Data Source [id number] 12/07/2019 05:19:11 AM EDT [facility] Name Value Range Interpretation Description Data Sup porting Code Source(s) Document(s ) Sodium 138 136-145 [facility] [Moles/volume] mmol/L [facility] in Serum or Hospital Plasma Potassium 3.5 3.5-5.1 [facility] [Moles/volume] mmol/L [facility] in Serum or Hospital Plasma Chloride 106 98-107 [facility] [Moles/volume] mmol/L [facility] in Serum or Hospital Plasma Carbon 27 21-32 [facility] dioxide, total mmol/L [facility] [Moles/volume] Hospital in Serum or Plasma Anion gap in 10 10-20 [facility] Serum or mmol/L [facility] Plasma Hospital Glucose 140 74-106 Above high normal [facility] [Mass/volume] mg/dL [facility] in Serum or Hospital Plasma Urea nitrogen 19 mg/dL 7-18 Above high normal [facility] [Mass/volume] [facility] in Serum or Hospital Plasma Creatinine 0.94 0.70-1.3 [facility] [Mass/volume] mg/dL 0 [facility] in Serum or Hospital Plasma Glomerular >60 [facility] filtration [facility] rate/1.73 sq M Hospital predicted among blacks [Volume Rate/Area] in Serum or Plasma by Creatinine-bas ed formula (MDRD) Glomerular >60 [facility] filtration [facility] rate/1.73 sq M Hospital predicted among non-blacks [Volume Rate/Area] in Serum or Plasma by Creatinine-bas ed formula (MDRD) (NOTE)Estimated GFR is calculated using the Modification of Diet in RenalDisease (MDRD) Study equation, reported for both Americans(GFRAA) and non- Americans (GFRNA), and normalized to 1.7 9r6ydes surface area. The physician must decide which value applies tothe patient . The MDRD study equation should only be used inindividuals age 18 or older. It has no t been validated for thefollowing: women, patients with serious comorbid co nditions,or on certain medications, or persons with extremes of body size,muscl e mass, or nutritional status. Calcium [Mass/volume] in Serum 9.1 mg/dL 8.5-10.1 [facility] or Plasma Hospital ID Date Data Source [id number] 12/06/2019 08:12:24 PM EDT [facility] Bedside and Verbal shift change report cristi casashali to Rach RN (oncoming nurse) Estephania Wakefield RN (offgoing nurse). Report included the followinginformation SBAR, Kardex, MAR, Recent Results, and Med Rec Status. Name Value Range Interpretation Code Description Data [facility] r[facility](s) Supporting Document(s ) ID Date Data Source [id number] 12/06/2019 04:57:12 PM EDT [facility] General Daily Progress NoteAdmit Date: Hospital day: [...] (LOVENOX) injection 40 mg 40 mg SubCUTAneous S12OPsgixqplr:Patient Vi tals for the past 8 hrs: BP Temp Pulse Resp MwR94112/06/19 1547 (!) 164/100 99.6 F (3 7.6 [...] Time: 12/06/19 4:25 AMResult Value Ref Range [place] level 1.09 0.6 - 1.2 MMOL/L Xr [...] initial encounter (12/05/2019)Active Problems: Encephalopathy acute (12/05/2019) Ity-jfgg-nzqbepq adve rse reaction to medication (12/05/2019)Plan:To reduce iv fluids, repeat lasix Name Value Range Interpretation Code Description Data Melani rce(s) Supporting Document(s ) ID Date Data Source [id number] 12/06/2019 04:14:48 PM EDT [facility] Psychiatry Consult NoteSubjective:Patien t: Maxwell Bray Age: [...] of morbidity or mortality cardiac cath at [facility] approx 6-8 months ago Other unknown and unspecified cause of morbidity or mortal ity concussions Other unknown and unspecified cause of morbidity or mortal ity "periodic disorientation" Other unknown and unspecified cause of morbidity or mo rtality anxiety Psychiatric disorder anxiety, depressionPsychiatric History: Patient reported he was receiving care in outpatient from [facility] psychiatrist t did not discuss details.Substance Use History:Social HistorySubstance and Sexu al ActivityAlcohol Use No Frequency: Never Drinks per session: 1 or 2 Binge freque ncy: NeverSocial HistorySubstance and Sexual ActivityDrug Use NoObjective:Vitals/Phys ical Assessment:Patient Vitals for the past 8 hrs: BP Temp Pulse Resp FuY94512/06/19 081 3 (!) 153/94 100.4 F (38 [...] encounter (12/05/2019)A ctive Problems: Encephalopathy acute (12/05/2019) Ykr-fmqo-tnlotho adverse re action to medication (12/05/2019)Plan:No current [...] Supporting Document(s ) ID Date Data Source [id number] 12/06/2019 01:18:16 PM EDT [facility] Trent Jacob MD[address] [place] [address] [id number] Progress NotePatient: Maxwell Bray Sex: male DOA: 12/05/2019Date of : 1970 Age: 49 y.o. LOS: LOS: 1 daySubjective:Awake, alert, tremulous, no current complaintsEEG w/ mild to mod gen slowREVIEW OF SYSTEMS: NO CP, SOB, N,V,D, F,CCurrent Facility-Administered MedicationsMedication Dose Route Frequen cy 0.9% sodium chloride infusion 125 mL/hr IntraVENous CONTINUOUS enoxaparin (LOVE NOX) injection 40 mg 40 mg SubCUTAneous G06AOrwlxsvgh:Visit VitalsBP (!) 153/94 (BP 1 Location: Left arm, BP Patient Position: At rest)Pulse 100Temp 100.4 F (38 C)Resp 18Ht 5' 5.75" (1.67 m)Wt 300 lb (136.1 kg)SpO2 96%BMI 48.79 kg/m Body mass index is 48.79 kg/m .Patient Vitals for the past 24 hrs: Temp Pulse Resp BP UfV61912/06/19 0813 100.4 F (38 C) 100 18 [...] the time notated as "note time" in [facility]. (It is not time stamped separately [...] Time: 12/06/19 4:25 AMResult Value Ref Range [place] level 1.09 0.6 - 1.2 MMOL/LCT Results (most recent):Results from [facility] encounter on 12/05/19CT HEAD WO CONT [...] of the brain.MRI Results (most recent):Results from [facility] encounter on 12/05/19MRI BRAIN WO CONT [...] hic pain of shoulder M79.2 Seizure disorder ([facility]) G40.909 Spells [id number] Severe ob esity ([facility]) E66.01 Depression F32.9 Anxiety F41.9 Bipolar disorder ([facility]) F31.9 Dep ressive disorder F32.9 Status post gastric bypass for obesity Z98.84 Morbid obesit y ([facility]) E66.01 Mixed anxiety and depressive disorder F41.8 Vitamin D deficiency E55 .9 Bipolar disorder with severe depression ([facility]) F31.4 Encephalopathy acute G93.40 Adverse drug reaction, initial encounter T50.905A Cfo-waad-hlpvnfp adverse react ion to medication T88.7XXA49 year [...] Supporting Document(s ) ID Date Data Source [id number] 12/06/2019 11:43:34 AM EDT [facility] LTM study day 1 complete. All leads and head wrapping intact. Day 2 LTM studycommenced and LIVE via WIFI on [facility]. 06/28 Name Value Range Interpretation Code Description Data [facility] rce(s) Supporting Document(s ) ID Date Data Source [id number] 12/06/2019 10:48:32 AM EDT [facility] Care Management InterventionsPCP Verifie d by CM: YesCurrent Support Network: Own Home, Lives with SpouseThe Patient and/o r Patient Finance Consultant was Provided with a Choice of Providerand Agrees with the Betty rose Plan?: YesFreedom of Choice List was Provided with Basic Dialogue that Suppor ts thePatient's Individualized Plan of Care/Goals, Treatment Preferences and Sh aresthe Quality Data Associated with the Providers?: YesVeteran Resource Informat ion Provided?: RefusedDischarge LocationDischarge Placement: HomeCASE YUE LORENZ PSYCHOSOCIAL ASSESSMENTMaxwell F Asa Admission Marlon e: 12/05/2019MRN: [id number] of : 1970Current date: 12/06/2019 DISCHARGE PLAN: Patient is a 49 year old male admitted to [facility]. CM attempted toreach hi m via room [...] services. Open for SNF. Family would like [facility]. CM CCLINKD. CM willfollow.Patient Information:Patients Preferred [...] NoPCP: Ritika Canas MDAdmitting Provider: Ritika lobo MDRAPPAHANNOCK GENERAL [facility] INCHOMECARE HYDROLOGICAL TECHNICAL OFFICER: N/APayor: P ayor: [facility] HEALTH PLAN / Plan: [facility] /Product Type: O /Secondary Payor : @[facility]ENTERINSGROUPNAME@Encephalopathy acute [G93.40]Fkk-gzif-fgazuae adverse reactio n to medication [T88.7XXA]Msn-eepa-bbpthgi adverse reaction to medication [T88.7XXA ]Patient Active Problem ListDiagnosis Code H/O gastric bypass Z98.84 Insomnia G47. 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 Seizure disorder ([facility]) G40.909 Spells I MG7411 Severe obesity ([facility]) E66.01 Depression F32.9 Anxiety F41.9 Bipolar disorder (HCC) F31.9 Depressive disorder F32.9 Status post gastric bypass for ob esity Z98.84 Morbid obesity (HCC) E66.01 Mixed anxiety and depressive disorder F4 1.8 Vitamin D deficiency E55.9 Bipolar disorder with severe depression (HCC) F3 1.4 Encephalopathy acute G93.40 Adverse drug reaction, initial encounter T50.905 A Axs-yzzd-sthqtnc adverse reaction to medication T88.7XXASocial HistorySubstan ce and Sexual ActivityAlcohol Use No Frequency: Never Drinks per session: 1 or 2 Binge frequency: NeverNumber of stairs into patient home:DME:Cohabitants:Abuse Screen:Physical Abuse/Neglect: DeniesSexual Abuse: DeniesVerbal Abuse: DeniesOther A buse/Issues: DeniesINSURANCE INFORMATION: (Verification)Primary Notes:Secondary No kenton:Workmen's Comp Notes:No-Fault Notes:SSD Notes:Un-Insured Notes:[facility] Notes:Current Functioning:Language barriers: Notes:Und erstanding nature/impact of illness: Notes:Ability to participate in plan: No kenton:Realistic Problem solving and planning: Notes:Adequate coping skills: Notes:Reli gious/Cultural barriers: Notes:If unable to assess or not applicable: Notes:Suicide Assessment:Readmit Risk:Support Systems: Child(mary), Family member(s), Friends \\ neighbors,Spouse/Significant Other/PartnerAdvanced Care Planning:[facility] Advance Directive: NoneDiscussed with the patient and all questions fully answered . He will call me ifany problems arise. Name Value Range Interpretation Code Description Data Melani rce(s) Supporting Document(s ) ID Date Data Source [id number] 12/06/2019 07:40:06 AM EDT [facility] 1938: Patient found in bed resting quiet [...] Supporting Document(s ) ID Date Data Source [id number] 12/06/2019 05:07:27 AM EDT [facility] Name Value Range Interpretation Description Data Sup porting Code Source(s) Document(s ) [place] 1.09 0.6-1.2 [facility] - Good [Moles/volu MMOL/L Pentecostalism me] in Hospital Serum or Plasma ID Date Data Source [id number] 12/05/2019 07:59:09 PM EDT [facility] Name Value Range Interpretation Description Data Sup porting Code Source(s) Document(s ) Ammonia 16 UMOL/L 11-32 [facility] - Good [Moles/volum Pentecostalism e] in Plasma Hospital ID Date Data Source [id number] 12/05/2019 07:56:38 PM EDT [facility] Name Value Range Interpretation Description Data Sup porting Code Source(s) Document(s ) Lactate 0.9 0.4-2.0 [facility] - Good [Moles/volu MMOL/L Pentecostalism me] in Hospital Serum or Plasma ID Date Data Source [id number] 12/05/2019 06:42:57 PM EDT [facility] 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 Day 1 LTM comm enced and LIVE via WIFI on [facility] 06/28 Name Value Range Interpretation Code Description Data Melani rce(s) Supporting Document(s ) ID Date Data Source [id number] 12/05/2019 06:07:34 PM EDT [facility] [id number] [facility]ENTERThe [employer] [facility] 4T OR THOPEDICS [address] [address] [phone]/06/13 Maxwell Bray (Male) [id number] I 3 ED Dispo:ADMIT Chief Complaint: Fall, Fatigue Diagnosis: Altered mental status, unspecified altered mental status type [] Adverse drug reaction, initial encounter [] Encephalopathy acute [] Gel-tkiy-rqoewqi adverse effect of medication, subsequent encounter [] Bipolar disorder with severe depression (HCC) [] H/O gastric bypass [] Curre nt Providers: Attending: Patsy Manzo; Kristy Otero; Cristi Canas Consulting Provider: Jose Centeno; Cristi Canas; Javier Khan; Cristi Frazier Primary Nurse: BAILEY GambleN: [phone] [id number] Print [employer] [phone] - [facility] Ed Medva MrnMRN: [id number] Print Group [phone] - [facility] [employer] Age SexDOB 1970 AGE 49 SEX Male Primary Care Provider: Ritika Canas MD Phone: Allergies: (No Known Allergies)Date Reviewed: 12/05/2019Reviewed by: Ritika Canas MD - Review CompleteED Provider Notes: All notesHNO ID: [id number]: Julio Manzo MDService: EMERGENCYAuthor Type: Physici anFiled: [...] of morbidity or mortality cardiac cath at [facility] approx 6-8 months ag o Other unknown [...] Calculation (Bez et) 515 ms Calculated P Center 40 degrees Calculated R Center 41 degrees Calculated T Center 147 degrees Diagnosis Sinus tachycardiaProbable left atrial [...] Time: 12/05/19 12:38 PMResult Value Ref Range [place] level 1 .53 (HH) 0.6 - 1.2 MMOL/LLACTIC ACID Collection Time: 12/05/19 12:40 PMResult Value Ref Range Lactic acid 1.1 0.4 - 2.0 MMOL/LEKG:Sinus tachycardia at 100 BPM, normal axis, nothing acute.Interpreted by Julio Manzo MD11:20 AM monitor technician reading shows sinus tachycardia at 100 BPM.Interpreted [...] mental status, unspecified altered mental status type R41.64715.97Patient c ondition at time of disposition: StableI [...] thediagnostic studies, unless otherwise noted.+ED Orde rs [id number] SOURCING SPECIALIST - ED ONLY [#[id number]] Priority: STAT Class: Hospital Performe d Standing Order Information Remaining Occurrences:0/1 Interval:Continuous Last release d:12/05/2019 Released orders: SunDec 05, 2019 11:20 AM by: JULIO MANZO Type: -> Bedside N [id number] PULSE OXIMETRY CONTINUOUS [#[id number]] Priority: STAT Class: Hospital Performe d Standing Order Information Remaining Occurrences:0/1 Interval:CONTINUOUS Last release d:12/05/2019 Released orders: SunDec 05, 2019 11:20 AM by: JULIO MANZO [id number] PULSE OXIMETRY SPOT CHECK [#[id number]] Priority: STAT Class: Hospital Performed Standing Order Inf ormation Remaining Occurrences:0/1 Interval:ONE TIME Last released:12/05/2019 Release d orders: SunDec 05, 2019 11:20 AM by: JULIO MANZO [id number] OBTAIN OLD EKG [ #[id number]] Priority: Routine Class: Hospital Performed Standing Order Information Remainin g Occurrences:0/1 Interval:ONE TIME Last released:12/05/2019 Released orders : SunDec 05, 2019 11:20 AM by: JULIO MANZO [id number] SOURCING SPECIALIST - ED ONLY [# [id number]] Priority: STAT Class: Hospital Performed Type: -> Bedside Released on: 12/05/2019 11:20 AM [id number] PULSE OXIMETRY CONTINUOUS [#[id number]] Priority: STAT Class: Hospital Performe d Released on: 12/05/2019 11:20 AM [id number] PULSE OXIMETRY SPOT CHECK [#[id number]] Priori ty: STAT Class: Hospital Performed Released on: 12/05/2019 11:20 AM [id number] OBTAIN OLD EKG [#[id number]] Priority: STAT Class: Hospital Performed Released on: 12/05/2019 11:20 AM [id number] VITAL SIGNS PER UNIT ROUTINE [#[id number]] Priority: STAT Class: Hospital Performed Stand ing Order Information Remaining Occurrences:0/1 Interval:CONTINUOUS Last released :12/05/2019 Released orders: SunDec 05, 2019 2:41 PM by: RITIKA CANAS Comment:More frequent ly if Indicated. [id number] BEDREST, COMPLETE [#[id number]] Priority: STAT Class: H ospital Performed Standing Order Information Remaining Occurrences:0/1 Interval:CONTIN UOUS Last released:12/05/2019 Released orders: SunDec 05, 2019 2:41 PM by: RITIKA CANAS [id number] NOTIFY PROVIDER: VITAL SIGNS CHANGES [#[id number]] Priority: STAT Class: Hospital Performe d Standing [...] Less than 120 ml in 4 hours [id number] APPLY/MAINTAIN SEQUENTIAL COMPRESSIO* [# [id number]] Priority: STAT Class: Hospital Performed Standing Order Information Remaining Occurre nces:0/1 Interval:CONTINUOUS Last released:12/05/2019 Released orders: SunDec 05, 2019 2:41 PM by: RITIKA CANAS [id number] VITAL SIGNS PER UNIT ROUTINE [#[id number]] Priorit y: STAT Class: Hospital Performed Comment:More frequently if Indicated. Released on: 12/05/2019 2 :41 PM [id number] BEDREST, COMPLETE [#[id number]] Priority: STAT Class: Hospital Performe d Released on: 12/05/2019 2:41 PM [id number] NOTIFY PROVIDER: VITAL SIGNS CHANGES [#[id number]] Priority: STAT Class: Hospital Performed Temp -> [...] carmen rs Released on: 12/05/2019 2:41 PM [id number] APPLY/MAINTAIN SEQUENTIAL COMPRESSIO* [#[id number]] P riority: STAT Class: Hospital Performed Released on: 12/05/2019 2:41 PM [id number] RT--OXYGEN CANNULA [#[id number]] Priority: STAT Class: Hospital Performed Standing Order Information Remaining Occurrences:0/1 Interval:CONTINUOUS Last released:12/05/2019 Released o rders: SunDec 05, 2019 11:20 AM by: JULIO MAZNO LPM -> 2 Indications for O2? -> CHEST PAIN [id number] RT--OXYGEN CANNULA [#[id number]] Priority: STAT Class: Hospital Performe d LPM -> 2 Indications for O2? -> CHEST PAIN Released on: 12/05/2019 11:20 AM [id number] DIET NPO [#[id number]] Canceled Priority: STAT Class: Hospital Performed Cancele d by RITIKA CANAS on SunDec 05, 2019 2:41 PM Reason: None Comment: Standing Order Information Remaining Occurrences:0/1 Interval:DIET EFFECTIVE NOW Last released:12/05/2019 Release d orders: SunDec 05, 2019 11:20 AM by: JULIO MANZO NPO options: -> With Meds [id number] DIET NPO [#[id number]] Canceled Priority: STAT Class: Hospital Performed Cancele d by RITIKA CANAS on SunDec 05, 2019 2:41 PM Reason: None Comment: NPO options: -> With Meds Released on: 12/05/2019 11:20 AM [id number] DIET NPO [#[id number]] Priority: S TAT Class: Hospital Performed Standing Order Information Remaining Occurrences:0/1 Inter haile:DIET EFFECTIVE NOW Last released:12/05/2019 Released orders: SunDec 05, 2019 2:41 PM by: RITIKA CANAS [id number] DIET NPO [#[id number]] Priority: STAT Class: H ospital Performed Released on: 12/05/2019 2:41 PM IVT11 SALINE LOCK IV [#[id number]] Priority: STAT Class: Hospital Performed Standing Order Information Remaining Occurrences:0 /1 Interval:ONE TIME Last released:12/05/2019 Released orders: SunDec 05, 2019 11:20 AM by: JULIO MANZO IVT11 SALINE LOCK IV [#[id number]] Priority: STAT Cl ass: Hospital Performed Released on: 12/05/2019 11:20 AM [id number] METABOLIC PANEL, COMPREHENSIVE [# [id number]] Priority: STAT Class: ER Collect Standing Order Information Remaining Occurrences:0 /1 Interval:ONE TIME Last released:12/05/2019 Released orders: SunDec 05, 2019 11:20 AM by: JULIO MANZO [id number] CBC WITH AUTOMATED DIFF [#[id number]] Priority: STAT Cl ass: ER Collect Standing Order Information Remaining Occurrences:0/1 Interval:ONE TI ME Last released:12/05/2019 Released orders: SunDec 05, 2019 11:20 AM by: JULIO MANZO [id number] TROPONIN I [#[id number]] Priority: STAT Class: ER Collect Sta nding Order Information Remaining Occurrences:0/1 Interval:ONE TIME Last released:0 12/05/2019 Released orders: SunDec 05, 2019 11:20 AM by: JULIO MANZO [id number] MAGNESIUM [#[id number]] Priority: STAT Class: ER Collect Standing Order Information Remaining Occurrences:0/1 Interval:ONE TIME Last released:12/05/2019 Released orders : SunDec 05, 2019 11:20 AM by: JULIO MANZO [id number] LACTIC ACID [#[id number]] Priority: STAT Class: ER Collect Standing Order Information Remaining Occurrences:0/2 Interval:NOW THEN EVERY 4 HOURS Last released:12/05/2019 Released orders: SunDec 05, 2019 12:06 PM by: JULIO MANZO SunDec 05, 2019 11:20 AM by: JULIO MANZO [id number] PROTHROMBIN TIME + INR [#[id number]] Priority: STAT Class: ER Collect Standing Order Information Remain ing Occurrences:0/1 Interval:ONE TIME Last released:12/05/2019 Released orders : SunDec 05, 2019 11:20 AM by: JULIO MANZO [id number] URINALYSIS W/ RFLX MICROSCOPIC [# [id number]] Priority: STAT Class: ER Collect Standing Order Information Remaining Occurrences:0 /1 Interval:ONE TIME Last released:12/05/2019 Released orders: SunDec 05, 2019 11:20 AM by: JULIO MANZO [id number] METABOLIC PANEL, COMPREHENSIVE [#[id number]] Priority: STAT Cl ass: ER Collect Specimen Source: Plasma Specimen Collected: 12/05/2019 12:38 PM Resulting Agency: [facility] Test ID: MPL Released on: 12/05/2019 11:20 AM [id number] CBC WITH A UTOMATED DIFF [#[id number]] Priority: STAT Class: ER Collect Specimen Source: Whole Blood S pecimen Collected: 12/05/2019 12:38 PM Resulting Agency: [facility] Test ID: CBCXA Released on: 12/05/2019 11:20 AM [id number] TROPONIN I [#[id number]] Prior ity: STAT Class: ER Collect Specimen Source: Plasma Specimen Collected: 12/05/2019 12:38 PM Resultin g Agency: [facility] Test ID: TROIP Released on: 12/05/2019 11:20 AM [id number] 2 MAGNESIUM [#[id number]] Priority: STAT Class: ER Collect Specimen Source : Plasma Specimen Collected: 12/05/2019 12:38 PM Resulting Agency: [facility] Test ID: MGPL Released on: 12/05/2019 11:20 AM [id number] LACTIC ACID [#[id number]] P riority: STAT Class: ER Collect Specimen Source: Plasma Specimen Collected: 12/05/2019 12:40 PM Resultin g Agency: [facility] Test ID: LAC Released on: 12/05/2019 11:20 AM [id number] PROTHR OMBIN TIME + INR [#[id number]] Priority: STAT Class: ER Collect Specimen Source: Plasma Spe cimen Collected: 12/05/2019 12:38 PM Resulting Agency: [facility] Test ID: APTHR R eleased on: 12/05/2019 11:20 AM [id number] URINALYSIS W/ RFLX MICROSCOPIC [#[id number]] Prior ity: STAT Class: ER Collect Specimen Source: Urine Specimen Collected: 12/05/2019 2:45 PM Resultin g Agency: [facility] Test ID: UA Released on: 12/05/2019 11:20 AM [id number] LITHIU M [#[id number]] Priority: STAT Class: ER Collect Standing Order Information Remaining Occurrences:0/1 Interval:ONE TIME Last released:12/05/2019 Released orders : SunDec 05, 2019 11:40 AM by: MECHELLE GAMBLE [id number] LITHIUM [# [id number]] Priority: STAT Class: ER Collect Specimen Source: Serum Specimen Collected: 12/05/2019 12 :38 PM Resulting Agency: [facility] Test ID: LI Released on: 12/05/2019 11:40 AM [id number] LITHIUM [#[id number]] Canceled Priority: STAT Class: ER Collect Canceled by TENA, [facility] IN [facility] on SunDec 05, 2019 11:42 AM Reason: Other Comment: Duplicate Standing Order Information Remaining Occurrences:0/1 Interval:ONE TIME Last released:0 12/05/2019 Released orders: SunDec 05, 2019 11:41 AM by: JULIO MANZO [id number] LITHIUM [#[id number]] Canceled Priority: STAT Class: ER Collect Specimen Collected: 12/05/2019 11:45 AM Resulting Agency: [facility] Test ID: LI Canceled by TENA, [facility] on SunDec 05, 2019 11:42 AM Reason: Other Comment: Duplicate Rele ased on: 12/05/2019 11:41 AM [id number] LACTIC ACID [#[id number]] Priority: STAT Cl ass: ER Collect Resulting Agency: [facility] Test ID: LAC Released on: 12/05/2019 12:06 PM [id number] AMMONIA [#[id number]] Priority: Routine Class: ER Collect Specimen Source: Blood Standing Order Information Remaining Occurrences:0/1 Interval:ONE TI ME Last released:12/05/2019 Released orders: SunDec 05, 2019 3:19 PM by: Javier KHAN [id number] AMMONIA [#[id number]] Priority: STAT Class: ER Collect Spe cimen Source: Blood Resulting Agency: [facility] Test ID: NH3 Released on: 12/05/2019 3:19 PM [id number] BILIRUBIN, CONFIRM [#[id number]] Priority: Routine Class : ER Collect Resulting Agency: [facility] Test ID: ICTO Standing Order Informat ion Remaining Occurrences:0/1 Released orders: SunDec 05, 2019 2:45 PM by: Automatic B atch Process [id number] BILIRUBIN, CONFIRM [#[id number]] Priority: Routine Class : ER Collect Specimen Source: Miscellaneous sample Specimen Collected: 12/05/2019 2:45 PM Resultin g Agency: [facility] Test ID: ICTO Released on: 12/05/2019 2:45 PM [id number] 6 EKG, 12 LEAD, INITIAL [#[id number]] Priority: STAT Class: Hospital Performed Stand ing Order Information Remaining Occurrences:0/1 Interval:ONE TIME Last released:0 12/05/2019 Released orders: SunDec 05, 2019 11:20 AM by: JULIO MANZO Reason for Exam: -> Chest Pain [id number] EKG, 12 LEAD, INITIAL [#[id number]] Priority: STAT Class: H ospital Performed Resulting Agency: [facility] Test ID: [id number] Reason for Exam: -> Chest Pain Releas ed on: 12/05/2019 11:20 AM [id number] XR CHEST PORT [#[id number]] Priority: STAT Clas s: Hospital Performed Standing Order Information Remaining Occurrences:0/1 Interval:ONE TI ME Last released:12/05/2019 Released orders: SunDec 05, 2019 11:20 AM by: JULIO MANZO Reason for Exam -> Chest Pain [id number] CT HEAD WO CONT [#[id number]] Priority: S TAT Class: Hospital Performed Standing Order Information Remaining Occurrences:0/1 Inter haile:ONE TIME Last released:12/05/2019 Released orders: SunDec 05, 2019 11:20 AM by: JULIO MANZO Reason for Exam -> ams [id number] XR PELV AP ONLY [#[id number]] Priority: S TAT Class: Hospital Performed Standing Order Information Remaining Occurrences:0/1 Inter haile:ONE TIME Last released:12/05/2019 Released orders: SunDec 05, 2019 11:20 AM by: JULIO MANZO Reason for Exam -> fall [id number] XR CHEST PORT [#[id number]] Priority: STAT Class: Hospital Performed Specimen Collected: 12/05/2019 12:21 PM Resulting Agency: [facility] Test ID: [id number] Reason for Exam -> Chest Pain Released on: 12/05/2019 11:[id number] HEAD WO CONT [#[id number]] Priority: STAT Class: Hospital Performed Specimen Collected : 12/05/2019 12:43 PM Resulting Agency: [facility] Test ID: [id number] Reason for Exam -> ams R eleased on: 12/05/2019 11:20 AM [id number] XR PELV AP ONLY [#[id number]] Priority: STAT Class: Hospital Performed Specimen Collected: 12/05/2019 12:23 PM Resulting Agency: [facility] Test ID : [id number] Reason for Exam -> fall Released on: 12/05/2019 11:20 AM [id number] MRI BRAIN WO CONT [#[id number]] Priority: STAT Class: Hospital Performed Standing Order Information Remaining Occurrences:0/1 Interval:ONE TIME Last released:12/05/2019 Released orders : SunDec 05, 2019 3:19 PM by: JOSE KHAN Reason for Exam -> ams [id number] MRI BRA IN WO CONT [#[id number]] Priority: STAT Class: Hospital Performed Specimen Collected : 12/05/2019 5:03 PM Resulting Agency: [facility] Test ID: [id number] Reason for Exam -> ams R eleased on: 12/05/2019 3:19 PM [id number] CULTURE, BLOOD [#[id number]] Priority: Routi ne Class: ER Collect Specimen Source: Blood Standing Order Information Remaining Occurrences:0 /1 Interval:ONE TIME Last released:12/05/2019 Released orders: SunDec 05, 2019 11:20 AM by: JULIO MANZO [id number] CULTURE, BLOOD [#[id number]] Priority: STAT Cl ass: ER Collect Specimen Source: Blood Standing Order Information Remaining Occurrences:0/1 I nterval:ONE TIME Last released:12/05/2019 Released orders: SunDec 05, 2019 11:20 AM by: JULIO MANZO [id number] CULTURE, BLOOD [#[id number]] Priority: STAT Class: E R Collect Specimen Source: Blood Specimen Collected: 12/05/2019 12:38 PM Resulting Agency: [facility] Test ID: HBCS Released on: 12/05/2019 11:20 AM [id number] CULTURE, BLOOD [#[id number]] Priority: STAT Class: ER Collect Specimen Source: Blood Specimen Collected: 12/04 12:30 PM Resulting Agency: [facility] Test ID: HBCS Released on: 12/05/2019 11:20 AM CEFTRIAXONE 1 GRAM IVPB MBP [#[id number]] Priority: STAT Class: Normal An tibiotic Indications -> Sepsis of Unknown Etiology SODIUM CHLORIDE 0.9 % IV [#[id number]] Priority: STAT Class: Normal SODIUM CHLORIDE 0.9 % IV [#[id number]] Priority : STAT Class: Normal ENOXAPARIN 40 MG/0.4 ML SUB-Q SYRINGE [#[id number]] Priority: STAT Class: N ormal ENOXAPARIN 40 MG/0.4 ML SUB-Q SYRINGE [#[id number]] Priority: STAT Class: Normal FUROSEMIDE 10 MG/ML IJ SOLN [#[id number]] Priority: STAT Class: Normal CON53 IP CONSULT TO PS YCHIATRY [#[id number]] Priority: STAT Class: Hospital Performed Standing Order Information Remaining Occurrences:0/1 Interval:ONE TIME Last released:12/05/2019 Released orders : SunDec 05, 2019 11:42 AM by: JULIO MANZO Reason for Consult: -> si Did you call or spea k to the consulting provider? -> No Consult To -> si CON53 IP CONSULT TO PSYCHIATRY [#[id number]] Priority: STAT Class: Hospital Performed Reason for Consult: -> si Did you call or spea k to the consulting provider? -> No Consult To -> si Released on: 12/05/2019 11:42 AM CON62 IP CON SULT TO INTERNAL MEDICINE [#[id number]] Priority: STAT Class: Hospital Performed Standing Order Inf ormation Remaining Occurrences:0/1 Interval:ONE TIME Last released:12/05/2019 Release d orders: SunDec 05, 2019 2:16 PM by: CARLA OTERO Reason for Consult: -> Altered mental st atus, Dr. Canas to admit Did you call or speak to the consulting provider? -> Yes CON62 IP CONSULT TO INTERNAL MEDICINE [#[id number]] Priority: STAT Class: Hospital Performed Reason for Consu lt: -> Altered mental status, Dr. Canas to admit Did you call or speak to the consulting provider? -> Yes Released on: 12/05/2019 2:16 PM CON53 IP CONSULT TO PSYCHIATRY [#[id number]] Priority: STAT Class: Hospital Performed Standing Order Information Remaining Occurrences:0 /1 Interval:ONE TIME Last released:12/05/2019 Released orders: SunDec 05, 2019 2:41 PM by: RITIKA CANAS Reason for Consult: -> adverse med reaction Did you call or speak to t he consulting provider? -> No Consult To -> Dr Aguirre Schedule When? -> TODAY CON9 IP CONSULT TO N EUROLOGY [#[id number]] Priority: STAT Class: Hospital Performed Standing Order Information Remaining Occurrences:0/1 Interval:ONE TIME Last released:12/05/2019 Released orders : SunDec 05, 2019 2:41 PM by: RITIKA CANAS Reason for Consult: -> encephalopathy adverse drug reaction Did you call or speak to the consulting provider? -> No Consult To -> Dr Jacob Schedule When? -> TODAY CON53 IP CONSULT TO PSYCHIATRY [#[id number]] Priority: STAT Class: H ospital Performed Reason for Consult: -> adverse med reaction Did you call or speak to the consulting provider? -> No Consult To -> Dr Aguirre Schedule When? -> TODAY Released on: 12/05/2019 2:41 P M CON9 IP CONSULT TO NEUROLOGY [#[id number]] Priority: STAT Class: Hospital Performe d Reason for Consult: -> encephalopathy adverse drug reaction Did you call or speak to the consulting provider? -> No Consult To -> Dr Jacob Schedule When? -> TODAY Released on: 12/05/2019 2:41 P M [id number] INITIAL PHYSICIAN ORDER: OBSERVATION* [#[id number]] Priority: Routine Class: ADT Pend Trans milvia Standing Order Information Remaining Occurrences:0/1 Interval:ONE TIME Last release d:12/05/2019 Released orders: SunDec 05, 2019 2:00 PM by: LUZ ELENA GATES Patient Class: -> OBS ERVATION Admitting Diagnosis -> Encephalopathy acute Admitting Physician -> CARLA OTERO Attending Physician -> CARLA OTERO [id number] INITIAL PHYSICIAN ORDER: OBSERVATION* [#[id number]] Priority: Routine Class: ADT Pend Transfer Patient Class: -> OBSERVATION Admitting Diagnosis -> Encephalopathy acute Admitting Physician -> CARLA OTERO Attending Physician -> CARLA OTERO Released on: 12/05/2019 2:00 PM [id number] INITIAL PHYSICIAN ORDER: INPATIENT [#[id number]] Joan renner: Routine Class: ADT Pend Transfer [...] o- n- ) Admitting Diagnosis - > Euk-ngyx-kctbovh adverse reaction to medication Admitting Physician -> RITIKA CANAS Physician -> RITIKA CANAS Estimated Length of Stay -> 5-7 Midnights Discharge Plan: -> Other (Specify) [id number] INITIAL PHYSICIAN ORDER: INPATIENT [#[id number]] Priority: Routine Class: ADT Pend Tr ansfer [...] i- o- n- ) Admitting Diagnosis -> Xux-xqyu-afqbmvm adverse reaction to medication Admitting Physician -> RITIKA CANAS Attending Physician -> MARY CANAS Estimated Length of Stay -> 5-7 Midnights Discharge Plan: -> Other (Specify) [id number] [facility] PHYSICIAN ORDER: INPATIENT [#[id number]] Priority: Routine Class: ADT Pend Transfer Status: [...] i- o- n- ) Admitting Diagnosis -> Zok-ezsj-wndpkyp adverse reaction to medication Admitting Physician -> RITIKA CANAS Attending Physician -> MARY CANAS Estimated Length of Stay -> 5-7 Midnights Discharge Plan: -> Other (Specify) Released on: 12/05/2019 2:41 PM [id number] INITIAL PHYSICIAN ORDER: INPATIENT [#[id number]] Priority: Routine Class : ADT Pend Transfer [...] o- n- ) Adm itting Diagnosis -> Gtp-nvkx-zsmdnek adverse reaction to medication Admitting Physician -> RITIKA CANAS Attending Physician -> RITIKA CANAS Estimated Length of Stay -> 5-7 Midnights Discharge Plan: -> Other (Specify) Released on: 12/05/2019 2:41 PM COD2 FULL CODE [#[id number]] Priority: STAT Class: Hospital Performed Standing Order Information Remaining Occurrences:0 /1 Interval:CONTINUOUS Last released:12/05/2019 Released orders: SunDec 05, 2019 2:41 PM by: RITIKA CANAS COD2 FULL CODE [#[id number]] Priority: STAT Cl ass: Hospital Performed Released on: 12/05/2019 2:41 PM [id number] EEG 12-26 HR W/VIDEO [# [id number]] Priority: Routine Class: Hospital Performed Standing Order Information Remaining Occurre nces:0/1 Interval:ONE TIME Last released:12/05/2019 Released orders: SunDec 04 3:19 PM by: JOSE KHAN Reason for Exam: -> ams [id number] EEG 12-26 HR W/VIDEO [#[id number]] Priority: STAT Class: Hospital Performed Resulting Agency: [facility] Test ID: [id number] Reason for Exam: -> ams Released on: 12/05/2019 3:19 Maxwell Corona MR#: [id number] * Rm: 441- 01Ht: 5' 5.75" Wt: 300 lb Code: Full Code Iso:Diagnosis:Encep halopathy acute [G93.40]Allergies: No Known Allergies -------- Current as of: 12/05/191806 NB=New Bag --aspirin (ASPIRIN) tablet 325 mg #[id number] Admin Amount: 1 Tab (1 x 325 mg Tab) Ordered Dose: 325 mg Route: Oral Freq: ONCE Start Date: 12/24/13 No administration times (back 96 hours, ahead 96 hours). ------diphenhydrAMINE (BENADRYL) capsule 50 mg #[id number] Admin Amount: 1 Cap (1 x 50 mg Cap) Ordered Dose: 50 mg Route: Ora l Freq: NOW Start Date: 12/24/13 No administration times (back 96 hours, ahe ad 96 hours). ------diazepam (VALIUM) tablet 5 mg #[id number] Admin Amount: 1 Tab (1 x 5 mg Tab) Ordered Dose: 5 mg Route: Oral Freq: ON CE Start Date: 12/24/13 No administration times (back 96 hours, ahead 96 hours). ------lidocaine (XYLOCAINE) 10 mg/mL (1 %) injection 1-30 mL #[id number] Admin Amount: 1-30 mL Ordered Dose: 1-30 mL Route: IntraDERMal Freq: ONCE Start Date: 12/24/13 No administration times (back 96 hours, ahead 96 hours). ------heparin (PF) 2 units/ml in NS infusion 2,000 Units #[id number] Admin Amount: 1,000 mL = 2,000 Units of 2 Units/mL Ordered Dose: 1,000 mL Ro wrangell: Irrigation Freq: ONCE Start Date: 12/24/13 No administration times (back 96 hours, ahead 96 hours). ------heparinized saline 2 units/mL infusion 1,000 Units #[id number] Admin Amount: 500 mL = 1,000 Units of 2 Units/mL Ordered Dose: 500 mL Ro wrangell: IntraarTERial Freq: ONCE Start Date: 12/24/13 No administration times (back 96 hours, ahead 96 hours). ------0.9% sodium chloride infusion #[id number] Ordered Dose: 75 mL/hr Route: IntraVENous Freq: CONTINUOUS Start Date: 12/24/13 Rate: 75 mL/hr Duration: No administration times (back 96 hours, ahead 96 hours). ------ioversol (OPTIRAY) 320 mg iodine/mL contrast injection 1-100 mL #[id number] Admin Amount: 1-100 mL Ordered Dose: 1-100 mL Route: IntraVENous Freq: RAD O NCE Start Date: 12/24/13 No administration times (back 96 hours, ahead 96 hours).Maxwell Bray MR#: [id number] * Rm: 441-01Ht: 5' 5.75" Wt: 300 lb Cod e: Full Code Iso:Diagnosis:Encephalopathy acute [G93.40]Allergies: No Known Allergies -------- Current as of: 12/05/19 1807 NB=New Bag --gadobutrol (GADAVIST) contrast solution 1-10 mL #[id number] Admin Amount: 1-10 mL Ordered Dose: 1-10 mL Route: IntraVENous Freq: RAD O NCE Start Date: 01/13/14 No administration times (back 96 hours, ahead 96 hours). ------sodium chloride (NS) flush 5-10 mL #[id number] Admin Amount: 5-10 mL Ordered Dose: 5-10 mL Route: IntraVENous Freq: RAD ONCE Start Date: 01/13/14 No administration times (back 96 hours, ahead 96 hours). ------sodium chloride (NS) 0.9 % flush #[id number] Ordered Dose: Route: Freq: Start Date: 01/13 No administration times (back 96 hours, ahead 96 hours). ------morphine injection 2 mg #[id number] Admin Amount: 1 mL = 2 mg of 2 mg/mL Ordered Dose: 2 mg Route: IntraVENous Freq: NOW Start Date: 03/13/15 No administration times (back 96 hours, ahe ad 96 hours). ------influenza vaccine (4 yr+)(PF) (FLUCELVAX QUAD) inj ection 0.5*#[id number] Admin Amount: 0.5 mL Ordered Dose: 0.5 mL Route: IntraMUSCular Freq: PRIOR TO DISCHARGE Start Date: 03/30/16 No administration times (back 96 hours, ahead 96 hours). ------oxyCODONE-acetaminophen (PERCOCET) 5-325 mg per tablet 1 Tab #[id number] Admin Amount: 1 Tab Ordered Dose: 1 Tab Route: Oral Freq: NOW Start Date: 09/07/17 No administration times (back 96 hours, ahead 96 hours). ------barium sulfate (READICAT) 2.1 % (w/v), 2.0 % (w /w) oral suspension 9*#[id number] Admin Amount: 900 mL Ordered Dose: 900 mL Route: Oral Delgado q: RAD ONCE Start Date: 10/15/17 No administration times (back 96 hours, ahead 96 hours). ------iopamidol (ISOVUE 300) 61 % contrast injection 100 mL #[id number] Admin Amount: 100 mL Ordered Dose: 100 mL Route: IntraVENous Freq: RAD ONC E Start Date: 10/15/17 No administration times (back 96 hours, ahead 96 hours).Maxwell Bray MR#: [id number] * Rm: 441-01Ht: 5' 5.75" Wt: 300 lb Code: Full Code Iso:Diagnosis:Encephalopathy acute [G93.40]Allergies: No Known Allergies -------- Current as of: 12/05/191806 NB=New Bag --risperiDONE (RisperDAL m-tabs) disintegrating tablet 1 mg #[id number] Admin Amount: 1 Tab (1 x 1 mg Tab) Ordered Dose: 1 mg Route: Oral Freq: ONCE Start Date: 12/24/17 No administration times (back 96 hours, ahead 96 hours). ------ALPRAZolam (XANAX) tablet 2 mg #[id number] Admin Amount: 4 Tab (4 x 0.5 mg Tab) Ordered Dose: 2 mg Route: Ora l Freq: NOW Start Date: 12/24/17 No administration times (back 96 hours, ahe ad 96 hours). ------lamoTRIgine (LaMICtal) tablet 100 mg #[id number] Admin Amount: 1 Tab (1 x 100 mg Tab) Ordered Dose: 100 mg Route: Oral Delgado q: ONCE Start Date: 12/24/17 No administration times (back 96 hours, ahead 96 hours). ------OLANZapine (ZyPREXA zydis) disintegrating tablet 5 mg #[id number] Admin Amount: 1 Tab (1 x 5 mg Tab) Ordered Dose: 5 mg Route: Oral Delgado q: ONCE Start Date: 12/25/17 No administration times (back 96 hours, ahead 96 hours). ------LORazepam (ATIVAN) tablet 2 mg #[id number] Admin Amount: 4 Tab (4 x 0.5 mg Tab) Ordered Dose: 2 mg Route: Ora l Freq: NOW Start Date: 12/25/17 No administration times (back 96 hours, ahe ad 96 hours). ------LORazepam (ATIVAN) injection 1 mg #[id number] Admin Amount: 0.5 mL = 1 mg of 2 mg/mL Ordered Dose: 1 mg Route: Int raVENous Freq: NOW Start Date: 12/25/17 No administration times (back 96 hours, ahe ad 96 hours). ------barium sulfate (EZ PAQUE) 96 % (w/w) contrast suspension 17 6 g #[id number] Admin Amount: 176 g Ordered Dose: 176 g Route: Oral Freq: RAD ONCE Start Date: 08/02/18 No administration times (back 96 hours, ahead 96 hours). ------barium sulfate (EZ PAQUE) 96 % (w/w) contrast s uspension 176 g #[id number] Admin Amount: 176 g Ordered Dose: 176 g Route: Oral Delgado q: RAD ONCE Start Date: 08/02/18 No administration times (back 96 hours, ahead 96 hours).Maxwell Ritter MR#: [id number] * Rm: 441-01Ht: 5' 575" Wt: 300 lb Cod e: Full Code Iso:Diagnosis:Encephalopathy acute [G93.40]Allergies: No Known Allergies -------- Current as of: 12/05/191806 NB=New Bag --aspirin chewable tablet 162 mg #[id number] Admin Amount: 2 Tab (2 x 81 mg Tab) Ordered Dose: 162 mg Route: Oral Freq: NOW Start Date: 08/10/19 No administration times (back 96 hours, ahead 96 hours). ------0.9% sodium chloride infusion 1,000 mL #[id number] Admin Amount: 1,000 mL Ordered Dose: 1,000 mL Route: IntraVENous Freq: ONC E Start Date: 08/16/19 Rate: 1,000 mL/hr Duration: No administration ti mes (back 96 hours, ahead 96 hours). ------methylPREDNISolone (PF) (Solu-MEDROL) injection 125 mg #[id number] Admin Amount: 2 mL = 125 mg of 125 mg/2 mL Ordered Dose: 125 mg Route: Int raVENous Freq: NOW Start Date: 08/16/19 No administration times (back 96 hours, ahe ad 96 hours). ------aspirin chewable tablet 162 mg #[id number] Admin Amount: 2 Tab (2 x 81 mg Tab) Ordered Dose: 162 mg Route: Oral Delgado q: NOW Start Date: 08/16/19 No administration times (back 96 hours, ahead 96 hours). ------haloperidoL (HALDOL) tablet 5 mg #[id number] Admin Amount: 1 Tab (1 x 5 mg Tab) Ordered Dose: 5 mg Route: Oral Delgado q: ONCE Start Date: 10/30/19 No administration times (back 96 hours, ahead 96 hours). ------cefTRIAXone (ROCEPHIN) 1 g in 0.9% sodium chloride (MBP/ADV) 50 m L M*#[id number] Admin Amount: 1 g Ordered Dose: 1 g Route: IntraVENous Freq: NOW Start Date: 12/05/19 Rate: 100 mL/hr Duration: 30 Minutes Administration linda es (back 96 hours, ahead 96 hours): 12/05/19: 1428NB -----0.9% sodium chloride infusion #[id number] Ordered Dose: 125 mL/hr Route: IntraVENous Freq: CONTINUOUS Start Date: 12/05/19 Rate: 125 mL/hr Duration: Administration times (back 96 hours, ahead 96 hours): 12/05/19: 1408NATALIEMaxwell Bray MR#: [id number] * Rm : 441-01Ht: 5' 5.75" Wt: 300 lb Code: Full Code Iso:Diagnosis:Encephalopathy acute [G93. 40]Allergies: No Known Allergies -------- Current as of: 12/05/191806 NB=New Bag --enoxaparin (LOVENOX) injection 40 mg #[id number] Admin Amount: 0.4 mL = 40 mg of 40 mg/0.4 mL Ordered Dose: 40 mg Ro wrangell: SubCUTAneous Freq: EVERY 24 HOURS Start Date: 12/05/19 Administration times (back 96 h ours, [facility] 96 hours): 12/05/19: 209912/06/19: 209912/07/19: 209912/08/19: 2099 ---furosemide (LASIX) injection 20 mg #[id number] Admin Amount: 2 mL = 20 mg of 10 mg/mL Ordered Dose: 20 mg Ro wrangell: IntraVENous Freq: ONCE Start Date: 12/05/19 Administration times (back 96 hours, ead 96 hours): 12/05/19: 1449 ED Current OP MedicationsrisperiDONE (RisperDAL) 2 mg tabletSig:Take 1 Tab by mouth daily.Dispense Amount:30 TabStart Date:12/04/2019End Date:Doc. Provider: Ritika Toledo MDamitriptyline (ELAVIL) 100 mg tabletSi mg.Dispense Amount:Start Date:11/12/2019End Date:Doc. Provider: aDnilo BustosVraylar 3 mg capsuleSig:Take 6 mg by [...] FileFollow-up Inf ormationFollow-up With:Ritika Canas MDDetails:Comments:Contact Info:[address] [facility] [address] [facility] [phone] Name Value Range Interpretation Code Description Data Melani rce(s) Supporting Document(s ) ID Date Data Source [id number] 12/05/2019 04:36:09 PM EDT [facility] The history is provided by the patient [...] of morbidity or mortality cardiac cath at [facility] approx 6-8 months ag o Other unknown [...] QTC Calculation (Bezet) 515 ms Calculated P Center 40 degrees Calculat ed R Center 41 degrees Calculated T Center 147 degrees Diagnosis Sinus tachycardiaProb able left [...] Time: 12/05/19 12:38 PMResult Value Ref Range [place] level 1.53 (HH) 0.6 - 1.2 MMOL/LLACTIC ACID Collection Time: 12/04 12:40 PMResult Value Ref Range Lactic acid 1.1 0.4 - 2.0 MMOL/LEKG:Sinus tachy cardia at 100 BPM, normal axis, nothing acute.Interpreted by Julio Manzo MD11:2 0 AM monitor technician reading shows sinus tachycardia at 100 BPM. [...] cardiac monitoring, CXR, and head CT. Will wad impregnator ocephin, IV fluids, and oxygen. Will consult [...] Supporting Document(s ) ID Date Data Source [id number] 12/05/2019 04:05:06 PM EDT [facility] [address] [place] [address] [email or web address] CONSULT NOTEPatient: Maxwell Bray Se x: male [...] or sensory fuentes es. Lab significant of [place] 1.53 and elevatedliver enzymes. Neurology consult ed for encephalopathy/drug adverse reaction.Past Medical History:Diagnosis Date Other unknown and unspecified cause of morbidity or mortality cardiac cath at [facility] approx 6-8 months ago Other [...] QTC Calculation (Bezet) 515 ms Calculated P Center 40 degrees Calculated R Center 41 degrees Calculated T Center 147 degrees Diagnosis Sinus tachycardiaProbable left atrial [...] Time: 12/05/19 12:38 PMResult Value Ref Range [place] level 1.53 (HH) 0.6 - 1.2 MMOL/LLACTIC [...] QTC Calculation (Bezet) 515 ms Calculated P Center 40 degrees Calculat ed R Center 41 degrees Calculated T Center 147 degrees Diagnosis Sinus tachycardiaProb able left [...] adalberto M79.2 Seizure disorder (HCC) G40.909 Spells [id number] Severe obesity (HCC) E66 .01 Depression F32.9 Anxiety F41.9 Bipolar disorder (HCC) F31.9 Depressive disorde r F32.9 Status post gastric bypass for obesity Z98.84 Morbid obesity (HCC) E66 .01 Mixed anxiety and depressive disorder F41.8 Vitamin D deficiency E55.9 Bipol ar disorder with severe depression (HCC) F31.4 Encephalopathy acute G93.40 Adve rse drug reaction, initial encounter T50.905A Lxi-xora-zuctmii adverse reaction to me dication T88.7XXA49 year old male with pmh as stated above and now with AMS and genera lizedweakness - most likely secondary to lithium toxicity - ? Seizure.Plan: Mri Brain Ammonia Monitor lithium level daily EEG - 24 hrs Seizure precautionsPaulson Gerald Flores 2019 3:19 [id number] Name Value Range Interpretation Code Description Data Melani rce(s) Supporting Document(s ) ID Date Data Source [id number] 12/05/2019 03:37:45 PM EDT [facility] sbar-q given to Evcristian Dave tr tejalport to floor Name Value Range Interpretation Code Description Data Melani rce(s) Supporting Document(s ) ID Date Data Source [id number] 12/05/2019 03:29:57 PM EDT [facility] sbar-q given to Sheri UGALDE on floor Name Value Range Interpretation Code Description Data Melani rce(s) Supporting Document(s ) ID Date Data Source [id number] 12/05/2019 03:28:02 PM EDT [facility] History & PhysicalBrian Anam Bray is a [...] h igh dose amytriptylene 200 mg nightly, [place], andVraylar 6 mg. :[place] level on prior admission therapeutic. Patient's wifecontactedthis [...] of morbidity or mortality cardiac cath at [facility] approx 6-8 months ag o Other unknown [...] Calculati on (Bezet) 515 ms Calculated P Center 40 degrees Calculated R Center 41 degrees Elena culated T Center 147 degrees Diagnosis Sinus tachycardiaProbable left atrial [...] Time: 12/05/19 12:38 PMResult Value Ref Range [place] level 1.53 (HH) 0.6 - 1.2 MMOL/LLACTIC ACID Collection Time: 12/04 12:40 PMResult Value Ref Range Lactic acid 1.1 0.4 - 2.0 MMOL/All lab results for the last 24 hours reviewed. Serun [place] level toxicAssessment/PlanPrinci pal Problem: Adverse drug reaction, initial encounter (12/05/2019) LithiumActive Prob lems: Encephalopathy acute (12/05/2019) Cix-bqsz-zygehhz adverse reaction to med ication (12/05/2019)Neuro, and psych evaluation, hydrationGeorge MD Corey Name Value Range Interpretation Code Description Data Melani rce(s) Supporting Document(s ) ID Date Data Source [id number] 12/06/2019 12:36:10 PM EDT [facility] Name Value Range Interpretation Description Data Sup porting Code Source(s) Document(s ) Service comment [facility] Bacteria [facility] identified in [facility] Unspecified Hospital specimen by Culture ID Date Data Source [id number] 12/05/2019 04:18:26 PM EDT [facility] Name Value Range Interpretation Description Data Sup porting Code Source(s) Document(s ) Color of Urine YEL Abnormal (applies [facility] - to non-numeric Good results) [facility] Appearance of CLEAR Abnormal (applies [facility] - Urine to non-numeric Good results) [facility] Specific gravity 1.033 1.003-1. Above high normal [facility] - of Urine by 030 Good Refractometry [facility] pH of Urine by 5.5 4.6-8.0 [facility] - Test strip Good [facility] Protein 30 mg/dL NEG Abnormal (applies [facility] - [Mass/volume] in to non-numeric Good Urine by Test results) [facility] Glucose NEG [facility] - [Mass/volume] in Good Urine by [facility] Automated test Hospital strip Ketones 15 mg/dL NEG Abnormal (applies [facility] - [Presence] in to non-numeric Good Urine by results) [employer] Automated test [facility] strip Bilirubin.total NEG Abnormal (applies [facility] - [Presence] in to non-numeric Good Urine results) [facility] Hemoglobin NEG [facility] - [Presence] in Good Urine by Test [facility] Urobilinogen 1.0 0.2-1.0 [facility] - [Presence] in EU/dL Good Urine by [employer] Automated test [facility] strip Nitrite NEG [facility] - [Presence] in Good Urine by [facility] test [facility] strip Leukocyte NEG [facility] - esterase Good [Presence] in [facility] Urine by Hospital Automated test strip Leukocytes 0-5 [facility] - [Presence] in Good Urine sediment [facility] by [facility] microscopy Erythrocytes 0-2 [facility] - [#/area] in Good Urine sediment [facility]ism by [facility] high power field Epithelial cells 0-10 [facility] - [#/area] in Good Urine sediment [facility]ism by [facility] high power field Bacteria NONE Abnormal (applies [facility] - [Presence] in to non-numeric Good Urine sediment results) [facility]ism by [facility] microscopy ID Date Data Source [id number] 12/05/2019 03:26:35 PM EDT [facility] Name Value Range Interpretation Description Data Sup porting Code Source(s) Document(s ) Bilirubin NEG [facility] - Good [Presence] in [facility] Urine by Hospital Confirmatory method ID Date Data Source [id number] 12/05/2019 02:22:27 PM EDT [facility] I spoke to Dr. Canas regarding Observation Status. Dr. Canas said patient will bemade In Patient Status today. Name Value Range Interpretation Code Description Data Melani rce(s) Supporting Document(s ) ID Date Data Source [id number] 12/05/2019 02:03:27 PM EDT [facility] SW/Psych Screener attempted to meet with Pt for MH evaluation. Pt was foundlying on stretcher with his eyes open, staring at the wall. Apprenticeship Representative knows this Ptfrom previous admission to the medical floor. When ask ed if Pt rememberedwriter, Pt appeared confused, but said he did. Pt stated he fell today, doesn'tremember how he was brought to the hospital. Pt appeared to be searching for hiswords and was having difficulty speaking. Pt unclear of where he is, stating"Standard" when asked where he was and "Standard" when asked what month it was. Whenasked if Pt was exhibiting any feelings of S/I, H/I or A/V Hallucinatio ns, Ptresponded with, "No," and confirmed he has been compliant with his psychiatricm edications. Apprenticeship Representative conferred with ER Attending, Dr. Manzo, who states that Ptwi ll most likely be medically admitted at this time.Krystina Centeno [facility], [facility] Name Value Range Interpretation Code Description Data Melani rce(s) Supporting Document(s ) ID Date Data Source [id number] 12/05/2019 12:53:37 PM EDT [facility] CT HEAD W/O CONTRASTPRIOR: Multiple: Mos t [...] Supporting Document(s ) ID Date Data Source [id number] 12/05/2019 01:31:37 PM EDT [facility] Name Value Range Interpretation Description Data Sup porting Code Source(s) Document(s ) Lactate 1.1 0.4-2.0 [facility] - [facility] [Moles/volu MMOL/L [facility] me] in Hospital Serum or Plasma ID Date Data Source [id number] 12/10/2019 05:19:22 AM EDT [facility] Name Value Range Interpretation Description Data Sup porting Code Source(s) Document(s ) Service comment [facility] Bacteria [facility] identified in [facility] Unspecified Hospital specimen by Culture ID Date Data Source [id number] 12/05/2019 02:14:34 PM EDT [facility] Name Value Range Interpretation Description Data Sup porting Code Source(s) Document(s ) [place] 1.53 0.6-1.2 Above upper panic [facility] - Good [Moles/volu MMOL/L limits [facility]] in Hospital Serum or Plasma CALLED TO AND READ BACK BYSUSI GAMBLE 1414 12/05/19 [facility] ID Date Data Source [id number] 12/05/2019 01:31:37 PM EDT [facility] Name Value Range Interpretation Description Data Sup porting Code Source(s) Document(s ) Troponin 0.00-0.05 [facility] I.cardiac [facility] [Mass/volume Hospital ] in Serum or Plasma [...] to 1.50 ng/mL ID Date Data Source [id number] 12/05/2019 01:31:37 PM EDT [facility] Hospital Name Value Range Interpretation Description Data Sup porting Code Source(s) Document(s ) Sodium 134 136-145 Below low normal [facility] - [facility] [Moles/volume] mmol/L [facility] in Serum or Hospital Plasma Potassium 3.5 3.5-5.1 [facility] - [facility] [Moles/volume] mmol/L [facility] in Serum or Hospital Plasma Chloride 104 98-107 [facility] - [facility] [Moles/volume] mmol/L [facility] in Serum or Hospital Plasma Carbon 26 21-32 [facility] - Good dioxide, total mmol/L [facility] [Moles/volume] Hospital in Serum or Plasma Anion gap in 7 mmol/L 10-20 Below low normal [facility] - Go od Serum or [facility] Plasma Hospital Glucose 127 74-106 Above high normal [facility] - Good [Mass/volume] mg/dL [facility] in Serum or Hospital Plasma Urea nitrogen 21 mg/dL 7-18 Above high normal [facility] - Good [Mass/volume] [facility]ism in Serum or Hospital Plasma Creatinine 0.94 0.70-1.3 [facility] - [facility] [Mass/volume] mg/dL 0 [facility] in Serum or Hospital Plasma Glomerular >60 [facility] - Good filtration [facility]alism rate/1.73 sq M Hospital predicted among blacks [Volume Rate/Area] in Serum or Plasma by Creatinine-bas ed formula (MDRD) Glomerular >60 [facility] - Good filtration [facility]alism rate/1.73 sq M Hospital predicted among non-blacks [Volume Rate/Area] in Serum or Plasma by Creatinine-bas ed formula (MDRD) (NOTE)Estimated GFR is calculated using the Modification of Diet in RenalDisease (MDRD) Study equation, reported for both Americans(GFRAA) and non- Americans (GFRNA), and normalized to 1.7 9e7ewxl surface area. The physician must decide which [...] normal [facility] - Good Serum or Plasma [facility] ital Bilirubin.total 0.9 mg/dL 0.2-1.0 [facility] - Good [Mass/volume] in Serum or [facility] Plasma Alanine aminotransferase 34 U/L 13-61 [facility] - Good [Enzymatic activity/volume] [facility] in Serum or Plasma Aspartate aminotransferase 47 U/L 15-37 Above high [facility] - Good [Enzymatic activity/volume] normal [facility] in Serum or Plasma by With P-5'-P Alkaline phosphatase 171 U/L 45-117 Above high [facility] - Good [Enzymatic activity/volume] normal [facility] in Serum or Plasma Protein [Mass/volume] in 7.5 g/dL 6.4-8.2 [facility] - Good Serum or Plasma [facility] ital Albumin [Mass/volume] in 3.8 g/dL 3.5-4.7 [facility] - Good Serum or Plasma by [facility] Bromocresol purple (BCP) dye binding method Globulin [Mass/volume] in 3.7 g/dL 1.7-4.7 [facility] - Good Serum by calculation [facility] Albumin/Globulin [Mass 1.0 0.7-2.8 [facility] - Good Ratio] in Serum or Plasma [facility] ID Date Data Source [id number] 12/05/2019 01:31:37 PM EDT [facility] Name Value Range Interpretation Description Data Sup porting Code Source(s) Document(s ) Magnesium 2.9 mg/dL 1.6-2.6 Above high normal [facility] - Good [Mass/volume] [facility]ism in Serum or Hospital Plasma ID Date Data Source [id number] 12/05/2019 01:20:04 PM EDT [facility] Name Value Range Interpretation Description Data Sup porting Code Source(s) Document(s ) Prothrombin 10.6 sec 9.4-11.1 [facility] - Good time (PT) [facility] INR in 1.0 0.8-1.2 [facility] - Good Platelet poor [facility]alism plasma by Hospital Coagulation assay ID Date Data Source [id number] 12/05/2019 01:07:21 PM EDT [facility] Name Value Range Interpretation Description Data Sup porting Code Source(s) Document(s ) Leukocytes 12.4 4.8-10.6 Above high normal [facility] - [#/volume] in K/uL Good Blood by [facility]alism Automated count Hospital Erythrocytes 5.03 4.70-6.0 [facility] - [#/volume] in M/uL 0 Good Blood by Pentec[facility]alism Automated count [facility] Hemoglobin 15.4 14.0-18. [facility] - [Mass/volume] in g/dL 0 Good Blood [facility] Hematocrit 45.8 % 42.0-52. [facility] - [Volume 0 Good Fraction] of Pent[facility]alism Blood by Hospital Automated count Erythrocyte mean 91.1 FL 81.0-94. [facility] - corpuscular 0 Good volume [Entitic Pent[facility]alism volume] by Hospital Automated count Erythrocyte mean 30.6 PG 27.0-35. [facility] - corpuscular 0 Good hemoglobin Pent[facility]alism [Entitic mass] [facility] by Automated count Erythrocyte mean 33.6 30.7-37. [facility] - corpuscular g/dL 3 Good hemoglobin [facility] [Mass/volume] by Automated count Erythrocyte 12.9 % 11.5-14. [facility] - distribution 0 Good width [Ratio] by Pentecostalism Automated count [facility] Platelets 164 K/uL 130-400 [facility] - [#/volume] in Good Blood by Pentec[facility]alism Automated count [facility] Platelet mean 9.5 FL 9.2-11.8 [facility] - volume [Entitic Good volume] in Blood [facility] by Automated Hospital count Nucleated 0.0 PER 0 [facility] - erythrocytes/100 100 WBC Good leukocytes [facility]ism [Ratio] in Blood Hospital Nucleated 0.00 0.0-0.01 [facility] - erythrocytes K/uL Good [#/volume] in [facility] Segmented 80 % 48.0-72. Above high normal [facility] - neutrophils/100 0 [facility] leukocytes in [facility] Lymphocytes/100 8 % 18.0-40. Below low normal [facility] - leukocytes in 0 [facility] Monocytes/100 10 % 2.0-12.0 [facility] - leukocytes in [facility] Eosinophils/100 1 % 0.0-7.0 [facility] - leukocytes in [facility] Basophils/100 0 % 0.0-3.0 [facility] - leukocytes in [facility] Immature 0 % 0-0.5 [facility] - granulocytes/100 [facility] leukocytes in [facility] by Hospital Automated count Segmented 10.0 2.3-7.6 Above high normal [facility] - neutrophils K/UL Good [#/volume] in [facility] Lymphocytes 1.0 K/UL 0.9-4.2 [facility] - [#/volume] in [facility] Monocytes 1.2 K/UL 0.1-1.7 [facility] - [#/volume] in [facility] Eosinophils 0.1 K/UL 0.0-1.0 [facility] - [#/volume] in [facility] Basophils 0.0 K/UL 0.0-0.4 [facility] - [#/volume] in [facility] Immature 0.1 K/UL 0.0-0.17 [facility] - granulocytes Good [#/volume] in [facility] by Hospital Automated count Differential [facility] - cell count Good method [facility] ID Date Data Source [id number] 12/10/2019 05:19:23 AM EDT [facility] Name Value Range Interpretation Description Data Sup porting Code Source(s) Document(s ) Service comment [facility] identified in [facility] Unspecified Hospital specimen by Culture ID Date Data Source [id number] 12/05/2019 12:24:35 PM EDT [facility] PELVIS one view.History: TraumaThe study is suboptimal due to the patient's body habitus.There is no evidence of fracture , dislocation, subluxation, bone erosion orarthritis.IMPRESSION: Grossly normal s lamar. Signing date/time: 12/05/2019 12:24 PMSigned by: CURTIS VARMA Name Value Range Interpretation Code Description Data Melani rce(s) Supporting Document(s ) ID Date Data Source [id number] 12/05/2019 12:23:11 PM EDT [facility] CHEST 1 view (s)HISTORY: Chest pain.COMP [place]: [...] Range Interpretation Code Description Data [facility] rce(s) Supporting Document(s ) ID Date Data Source [id number] 12/05/2019 11:34:39 AM EDT [facility] BIBA for fall in the middle of the night while going to bathroomC/p left hip pain Name Value Range Interpretation Code Description Data [facility] rce(s) Supporting Document(s ) ID Date Data Source [id number] 12/05/2019 11:21:27 AM EDT [facility] Please enter the current weight for this patient in [facility]. Thank you. Name Value Range Interpretation Code Description Data [facility] rce(s) Supporting Document(s ) ID Date Data Source [id number] 11/23/2019 02:02:47 PM EDT [facility] Discharge SummaryPatient: Maxwell Mendieta Xiao key Sex: [...] E66.01ICD-9-CM: 278.01 07/19/2018 - Present Spells ICD-10-CM: [id number]: IMO00 01 04/08/2016 - Present Seizure disorder [...] tr eated with parenteral hydration with benefit c5zftjfmgmljwbxqfea responses. Of note i s fact that patient was scheduled to begin ECTtreatment for depression when Covid 1 9 pandemic curtained this plan.Consults: PsychiatrySignificant Diagnostic Studies : labs: microbiology: , radiology: and cardiacgraphics:Discharge Medications: @DISCHARGEMEDLIST@Activity: Activity as toleratedDiet: Resume previous dietWound Care: None neededFollow-up: This examiner to follow in officeRitika Canas MD Name Value Range Interpretation Code Description Data [facility](s) Supporting Document(s ) ID Date Data Source [id number] 11/03/2019 09:41:35 PM EDT [facility] Verbal shift change report given to , RN (oncoming nurse) by Scott Beverly RN (offgoing nurse). Report included the fo llowing information SBAR, Kardex,Intake/Output, MAR and Recent Res ults. Name Value Range Interpretation Code Description Data [facility](s) Supporting Document(s ) ID Date Data Source [id number] 11/03/2019 03:34:07 PM EDT [facility] Per psych note, CM to confirm patient ap pt with psychiatristCall to Dr Mateo Méndez office # [phone], office closedPati ent aware of # to call to make his own appt, psychiatry info placed on [facility] ent states his will be coming [...] Network: Lives with Spouse, Own Home( [place] ,[phone])Confirm Follow Up Transport: FamilyThe Patient and/or Patient [...] Supporting Document(s ) ID Date Data Source [id number] 11/03/2019 02:45:48 PM EDT [facility] PHYSICAL THERAPY TREATMENTPatient: Maxwell Bray (49 y.o. [...] Supporting Document(s ) ID Date Data Source [id number] 11/03/2019 01:09:08 PM EDT [facility] General Daily Progress NoteAdmit Date: Hospital day: [...] past 8 hrs: BP Temp Pulse Resp [id number]/03/19 0752 115 /76 97.6 F (36.4 C) [...] Supporting Document(s ) ID Date Data Source [id number] 11/03/2019 10:52:30 AM EDT [facility] S/O patient has seen for follow up via V ideo . He is doing much better. Hedenies any auditory or visual hallucination any mor eHe has no suicidal or homicidal thoughtsHe reports that he sees Dr. marie every ot her weeksPt wants to follow up with Dr. Marie after dischargePlan continue on a ll current psychotropic medications Requesting rifle case repairer to confirm his a ppointment with Dr. mariebefore he discharged Please re consult if n eeded Name Value Range Interpretation Code Description Data Melani quinn(s) Supporting Document(s ) ID Date Data Source [id number] 11/03/2019 07:12:34 AM EDT [facility] Bedside and Verbal shift change report g iven to Meño Rose, RN (oncomingnurse) by June Ochoa, SUSI (offgoing nurse). Repor t included the followinginformation SBAR, Kardex, Intake/Output, MAR, Recent Resul ts and Med Rec Status. Name Value Range Interpretation Code Description Data Melani rce(s) Supporting Document(s ) ID Date Data Source [id number] 11/02/2019 11:18:25 PM EDT [facility] Problem: Falls - Risk ofGoal: *Absence o [...] Supporting Document(s ) ID Date Data Source [id number] 11/02/2019 07:34:02 PM EDT [facility] Bedside shift change report given to GILLIAN KEATING (oncoming nurse) by Meño Rose(offgoing nurse). Report included the following information SBAR, Kardex andIntake/Output. Name Value Range Interpretation Code Description [facility] ) ID Date Data Source [id number] 11/02/2019 05:14:50 PM EDT [facility] Telehealth Progress NotePursuant to the emergency declaration [...] [] Telephone [x] VideoconferenceDate: 11/02/2019Account Franny mber: [id number]: Maxwell Robin & Joe PROGRESS NOTE:Coordinated treatment team rounds conducted with psychiatrist, patient, nursesand/or social work case manager present ; dis cussions held with rifle case repairer and/or familymembers; Chart reviewed in full in cluding regulatory affairs consultant notes, ancillary staffnotes, vitals and labs in [facility] EMR reviewed in full.SUBJECTIVE: Pt seen for first time on Video with my SW Mendy And RN , hereports less hallucinations , as they are still there in the morning But overall better since got back on vraylar told me was scheduled for ECT at [facility] but due to elective , [...] past 8 hrs: Temp Pulse Resp BP XwO108/04/13 1546 98.3 F (36.8 C) 84 18 [...] (LOVENOX) injection 40 mg 40 mg SubCUTAneous [id number] Medications:C urrent Facility-Administered MedicationsMedication Dose Route Frequen [...] ENOX) injection 40 mg 40 mg SubCUTAneous [id number]/PLAN:Continue current kalie atment as pt is stabalizingPatient [...] Supporting Document(s ) ID Date Data Source [id number] 11/02/2019 03:02:33 PM EDT [facility] Daily Progress NoteAdmit Date: Hospital day: [...] (LOVENOX) injection 40 mg 40 mg SubCUTAneous [id number]:Patient Vitals for the past 8 hrs: BP [...] Sagittal and coronal reconstruction was performed.Uti lizing booth usher algorithm the examination was performed to optimizeimaging [...] Name Value Range Interpretation Code Description Data [facility](s) Supporting Document(s ) ID Date Data Source [id number] 11/02/2019 07:48:14 AM EDT [facility] Verbal shift change report given to Jody wells RN (oncoming nurse) by Juliane UGALDE (offgoing nurse). Report included the following information SBAR,Kardex, Intake/Output, MAR and Recent Results Name Value Range Interpretation Code Description Data [facility](s) Supporting Document(s ) ID Date Data Source [id number] 11/02/2019 05:41:52 AM EDT [facility] Patient AOX3 with periodic confusion. In bed watching TV. All med's given asordered by , tolerated well. Fall precaution m easures reinforced. Call bellwithin reach, bed in low position. Has urinal and comm ode at bedside. Voices nocomplaint at this time. Will continue to monitor pt. Name Value Range Interpretation Code Description Data Melani rce(s) Supporting Document(s ) ID Date Data Source [id number] 11/01/2019 08:46:30 PM EDT [facility] Problem: Falls - Risk ofGoal: *Absence o [...] Range Interpretation Code Description Data [facility] rce(s) Supporting Document(s ) ID Date Data Source [id number] 11/01/2019 08:00:09 PM EDT [facility] Verbal shift change report given to Ly vitale RN (oncoming nurse) by SUSI Palacio (offgoing nurse). Report included the following information SBAR,Intake/Output, MAR and Recent Results. Name Value Range Interpretation Code Description Data [facility](s) Supporting Document(s ) ID Date Data Source [id number] 11/01/2019 03:49:42 PM EDT [facility] Adult Progress NoteDate: 11/01/2019Account Number: [id number]: Maxwell Mendieta TrimerinDiagnosis: History of mood and [...] On e Bipolar disorder with severe depression ([facility]) 10/29/2019 Mixed anxiety and depr essive disorder 09/04/2019 Vitamin D deficiency 09/04/2019 Anxiety 0 Bipolar disorder ([facility]) 07/21/2019 Depressive disorder 07/21/2019 Status p ost gastric bypass for obesity 07/21/2019 Morbid obesity ([facility]) 07/21/2019 Severe obesity ([facility]) 07/19/2018 Spells 04/08/2016 Seizure disorder ([facility]) 04/30/2014 Insom kacey 11/04/2013 H/O gastric [...] (LOVENOX) injection 40 mg 40 mg SubCUTAneous L89JGrh following information was reviewed and discussed: Patient [...] Supporting Document(s ) ID Date Data Source [id number] 11/01/2019 02:42:08 PM EDT [facility] - [facility] Daily Progress NoteAdmit Date: Hospital day: [...] past 8 hrs: BP Temp Pulse Resp SpI598/03/14 0715 101/67 98 F (36.7 C) 70 [...] Sagittal and coronal reconstr uction was performed.Utilizing booth usher algorithm the examination was performed to optimizeimaging [...] Prominent interstitial markings arefelt to reflect vascular school crossing guard supervisor 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 Repeat PA andlateral views the chest are advised i f there is clinical concern for pneumoniaor congestive failure.Assessment:Active Pro blems: Bipolar disorder with severe depression (HCC) (10/29/2019)Plan:Improvin g status Name Value Range Interpretation Code Description Data [facility](s) Supporting Document(s ) ID Date Data Source [id number] 11/01/2019 07:08:12 AM EDT [facility] Verbal shift change report given to Chandrakant Albert RN (oncoming nurse) byMelanie Hoffmann RN (offgoing nurse). Report incl uded the following informationSBAR, Kardex, Intake/Output, MAR and Recent Results. Name Value Range Interpretation Code Description Data [facility](s) Supporting Document(s ) ID Date Data Source [id number] 10/31/2019 07:59:03 PM EDT [facility] Verbal shift change report given to Shreya adrian RN (oncoming nurse) by SUSI Palacio (offgoing nurse). Report included the following information SBAR,Kardex, Intake/Output, MAR and Recent Results. Name Value Range Interpretation Code Description Data [facility](s) Supporting Document(s ) ID Date Data Source [id number] 10/31/2019 05:09:32 PM EDT [facility] Telehealth ConsultationPursuant to the e mergency declaration [...] [] Telephone [x] VideoconferenceSubjective:Patient: Maxwell BrayMRN #: [id number]: [id number]: 49 y.o. Sex: maleAdm it Date: 10/29/2019Attending: [...] morbidity or mortal ity cardiac cath at [facility] approx 6-8 months ago Other unknown and [...] past 8 hrs: BP Temp Pulse Resp [id number]//20 0754 120/60 97.2 F (36.2 C) 70 20 95 %MENTA L STATUS EXAM:FINDINGS WITHIN NORMAL LIMITS (WNL) UNLESS OTHERWISE STATED BELOW:Sens orium [id number] Well relatedAppearance: OverweightMotor Behavior: Not examined Speech: [...] Vraylar. Willattempt to restart it.Referral To: javier colye re: non formulary drug.Ronal Aguirre MD 10/31/2019 3:38 PM Name Value Range Interpretation Code Description Data Melani rce(s) Supporting Document(s ) ID Date Data Source [id number] 10/31/2019 04:37:18 PM EDT [facility] - [facility] [address] [place], [place] [address]BINFMZA: MAXWELL BRAYMRN: [id number]: [id number]#: [id number] DATE: 10/29/2019 CONSULTATIONHISTORY OF PRESENT ILLNESS: The [...] and Klonopin.PAST MEDICAL HISTORY: Cardiac cath at [facility] six to eight months ago, concussions,periodic disorientation, [...] back to his psychiatrist [facility].Cognitively,he seems to be fair. His memory to [...] RONAL AGUIRRE MDDD: 10/30/2019 14:44:41/BR /[id number] / [id number] Name Value Range Interpretation Code Description Data Melani rce(s) Supporting Document(s ) ID Date Data Source [id number] 10/31/2019 01:47:36 PM EDT [facility] - [facility] Daily Progress NoteAdmit Date: Hospital day: .tdSubjective:Patient reportedly doing better reference activi ty. Persistent symptoms ofnausea. Also chronic frontal headache. [facility]iel had halluciinationsnight of admissionNo bowel activity, [...] Supporting Document(s ) ID Date Data Source [id number] 10/31/2019 12:59:26 PM EDT [facility] - [facility] physical Therapy TREATMENTPatient: Maxwell Bray (49 y.o. [...] established plan of care.Discharge Recommendations: Home to familyScionhealth Equipment Recommendations for Discharge: NoneSUBJECTIVE:Patient stated "I [...] trainingNeuro Re-Education:Patient sits for a few rajat kentno at bed side with manual/verbal cueing properposture.Patient [...] Range Interpretation Code Description Data [facility] rce(s) Supporting Document(s ) ID Date Data Source [id number] 10/31/2019 07:10:46 AM EDT [facility] Bedside and Verbal shift change report g iven to Samy UGALDE (oncoming nurse)by Cristofer Valenzuela RN (offgoing nurse). Repo rt included the following information SBAR, Kardex, MARand Recent Results. Name Value Range Interpretation Code Description Data [facility] rce(s) Supporting Document(s ) ID Date Data Source [id number] 10/30/2019 11:27:14 PM EDT [facility] Problem: Falls - Risk ofGoal: *Absence o [...] Name Value Range Interpretation Code Description Data [facility](s ) ID Date Data Source [id number] 10/30/2019 08:09:55 PM EDT [facility] Susi Garcia called as pt has been [...] be ordered as non formulary also At [facility] Name Value Range Interpretation Code Description Data [facility] rce(s) Supporting Document(s ) ID Date Data Source [id number] 10/30/2019 08:06:30 PM EDT [facility] Telephoned Dr. Oc tompkins pt's c/o new sy mptoms of hallucinations. Orderedreceived, relayed to RN, SUSI Marroquin on physicians and surgeons Name Value Range Interpretation Code Description Data [facility] rce(s) Supporting Document(s ) ID Date Data Source [id number] 10/30/2019 08:01:35 PM EDT [facility] Verbal shift change report given to Cecilia wells (oncoming nurse) by Samy Albert RN (offgoing nurse). Report included the fo llowing information SBAR, ProcedureSummary, Intake/Output, MAR and Recent Results. Name Value Range Interpretation Code Description Data [facility] Supporting Document(s ) ID Date Data Source [id number] 10/30/2019 02:58:51 PM EDT [facility] Problem: Mobility Impaired (Adult and Pe diatric)Goal: [...] of morbidity or mortality cardiac cath at [facility] approx 6-8 months ago Other [...] Home: NoneCritical Behavior:Neurologic State: AlertOrientation Level: Oriented G7Ygdhyjjph: Appropriate for age attention/concentrationSafety/Judgement: Awareness of environmentSkin:Strength:Strength: [...] Supporting Document(s ) ID Date Data Source [id number] 10/30/2019 02:50:37 PM EDT [facility] Telehealth ConsultationPursuant to the e mergency declaration [...] [] Telephone [] VideoconferenceSubjective:Patient: Maxwell BrayMRN #: [id number]: [id number]: 49 y.o. Sex: maleAdm it Date: 10/29/2019Attending: [...] Supporting Document(s ) ID Date Data Source [id number] 10/30/2019 02:06:26 PM EDT [facility] Care Management InterventionsPCP Verifie d by CM: YesPalliative Care Criteria Met (RRAT>21 & CHF Dx)?: NoMode of Transport at Discharge: Other (see comment)(family)Transition of Care Consu lt (CM Consult): Discharge PlanningPhysical Therapy Consult: NoOccupational Therapy Consult: NoSpeech Therapy Consult: NoCurrent Support Network: Lives with Spouse, Own Home( [place] [phone],[phone])Confirm Foll ow Up Transport: FamilyThe Patient and/or Patient Finance Consultant was Provided with a Choice of Providerand [...] home with his , is completely independent HYDROLOGICAL TECHNICAL OFFICER, nohome DME. Patient normally works (pre-covid) and drives. CM dept roleexplained, patient is currently denying any HC or rehab needs and states hiswife will drive him home upon DC. PT eval is ordered and pending. CM dept laila lfollow if patient has any PT needs.CASE MANAGEMENT PSYCHOSOCIAL ASSESSMENTMaxwell Bray Admission Date: 10/29/2019MRN: [id number] of : 1970Current date: 10/30/2019DISCHARGE PLAN: homePatient Info rmation:Patients Preferred Name: brianPatient Arrived Via: StretcherTransfer[facility] a [facility] facility: NoInformation Obtained From: PatientPatient [...] NoPCP: Ritika Canas MDAdmitting Provider: Cristi Canas MDRAPPAHANNOCK GENERAL [facility] INCHOMECARE HYDROLOGICAL TECHNICAL OFFICER: naPayor: Payor: [facility] / Plan: [facility] /Product Type: Unified Social /Global [employer] Payor: @MergeOpticsGROUPNAME@Bipolar disorder with severe depression (HCC) [F 31.4]Bipolar disorder with severe depression (HCC) [F31.4]Patient Active Problem List Diagnosis Code H/O gastric bypass Z98.84 Insomnia G47.00 Neuropathic pain of surekha glover M79.2 Seizure disorder ([facility]) G40.909 Spells R68.89 Severe obesity (HCC) [...] Intoxication: NoHallucinations/Delusions: NoPending, A ctive, or Temporary Jail Orders: NoAggressive/Inappropriate Behavior: NoR eadmit Risk:Support Systems: Family member(s)Advanced Care Planning:Confirm Advance Directive: NoneDiscussed with the patient and all questions fully answered . He will call me ifany problems arise. Name Value Range Interpretation Code Description Data Melani rce(s) Supporting Document(s ) ID Date Data Source [id number] 10/30/2019 12:38:13 PM EDT [facility] General Daily Progress NoteAdmit Date: Hospital day: .tdSubjective:Patient markedly improved this am, speech now no rmal. Denies possibleinadvertent overdose of chronic meds. Accepting of psych consult . PT toevaluate. Claims symptoms of mild nausea. Meds reviewed claims to be takin gElavil G 150 mg HS ,Klonopin 1 mg twice a day, [place] 300 twice daily, Vraylar3 m g dailyCurrent [...] past 8 hrs: BP Temp Pulse Resp HbN03610/30/19 0727 (!) 130/96 98 F (36.7 C) [...] - 0.17 K/UL DF AUTOMATEDMETABOLIC PANEL, BASIC [facility] ction Time: 10/30/19 6:40 AMResult Value Ref [...] Range Interpretation Code Description Data [facility] rce(s) Supporting Document(s ) ID Date Data Source [id number] 10/30/2019 07:52:05 AM EDT [facility] Verbal shift change report given to Chandrakant rosa RN (oncoming nurse) Tavares UGALDE (offgoing nurse). Report included the fo llowing information SBAR,Kardex, Procedure Summary, Intake/Output, MAR and Recent R esults. Name Value Range Interpretation Code Description Data [facility] rce(s) Supporting Document(s ) ID Date Data Source [id number] 10/30/2019 06:40:05 AM EDT [facility] Pt. AOX3, periodic confusion. Commode an d urinal at bedside. Seizure and fallprecaution measures in place. Voice s no complaint during shift . Name Value Range Interpretation Code Description Data [facility] rce(s) Supporting Document(s ) ID Date Data Source [id number] 10/30/2019 07:29:12 AM EDT [facility] Name Value Range Interpretation Description Data Sup porting Code Source(s) Document(s ) Sodium 139 136-145 [facility] - Good [Moles/volume] mmol/L [facility] in Serum or Hospital Plasma Potassium 3.6 3.5-5.1 [facility] - Good [Moles/volume] mmol/L [facility] in Serum or Hospital Plasma Chloride 110 98-107 Above high normal [facility] - Good [Moles/volume] mmol/L [facility] in Serum or Hospital Plasma Carbon 24 21-32 [facility] - Good dioxide, total mmol/L [facility] [Moles/volume] Hospital in Serum or Plasma Anion gap in 9 mmol/L 10-20 Below low normal [facility] - Go od Serum or [facility] Plasma Hospital Glucose 96 mg/dL 74-106 [facility] - Good [Mass/volume] [facility] in Serum or Hospital Plasma Urea nitrogen 10 mg/dL 7-18 [facility] - [facility] [Mass/volume] [facility] in Serum or Hospital Plasma Creatinine 0.81 0.70-1.3 [facility] - Good [Mass/volume] mg/dL 0 [facility] in Serum or Hospital Plasma Glomerular >60 [facility] - Good filtration [facility] rate/1.73 sq M Hospital predicted among blacks [Volume Rate/Area] in Serum or Plasma by Creatinine-bas ed formula (MDRD) Glomerular >60 [facility] - Good filtration [facility] rate/1.73 sq M Hospital predicted among non-blacks [Volume Rate/Area] in Serum or Plasma by Creatinine-bas ed formula (MDRD) Calcium 8.2 8.5-10.1 Below low normal [facility] - Good [Mass/volume] mg/dL [facility] in Serum or Hospital Plasma ID Date Data Source [id number] 10/30/2019 07:05:07 AM EDT [facility] Hospital Name Value Range Interpretation Description Data Sup porting Code Source(s) Document(s ) Leukocytes 4.8 K/uL 4.8-10.6 [facility] - [#/volume] in Good Blood by [facility] Automated [facility] Erythrocytes 4.59 4.70-6.0 Below low normal [facility] - [#/volume] in M/uL 0 Good Blood by [facility] Automated count [facility] Hemoglobin 14.0 14.0-18. [facility] - [Mass/volume] in g/dL 0 Good Blood [facility] Hematocrit 42.7 % 42.0-52. [facility] - [Volume 0 Good Fraction] of [facility] Blood by Hospital Automated count Erythrocyte mean 93.0 FL 81.0-94. [facility] - corpuscular 0 Good volume [Entitic [facility] volume] by Hospital Automated count Erythrocyte mean 30.5 PG 27.0-35. [facility] - corpuscular 0 Good hemoglobin [facility] [Entitic mass] Hospital by Automated count Erythrocyte mean 32.8 30.7-37. [facility] - corpuscular g/dL 3 Good hemoglobin [facility] concentration [facility] [Mass/volume] by Automated count Erythrocyte 13.3 % 11.5-14. [facility] - distribution 0 Good width [Ratio] by [facility] Automated count [facility] Platelets 159 K/uL 130-400 [facility] - [#/volume] in Good Blood by [facility] Platelet mean 8.6 FL 9.2-11.8 Below low normal [facility] - volume [Entitic Good volume] in Blood [facility] by Automated Hospital count Nucleated 0.0 PER 0 [facility] - erythrocytes/100 100 WBC Good leukocytes [facility] [Ratio] in Blood Hospital Nucleated 0.00 0.0-0.01 [facility] - erythrocytes K/uL Good [#/volume] in [facility] Segmented 54 % 48.0-72. [facility] - neutrophils/100 0 Good leukocytes in [facility] Lymphocytes/100 32 % 18.0-40. [facility] - leukocytes in 0 [facility] Monocytes/100 9 % 2.0-12.0 [facility] - leukocytes in [facility] Eosinophils/100 5 % 0.0-7.0 [facility] - leukocytes in [facility] Basophils/100 1 % 0.0-3.0 [facility] - leukocytes in [facility] Immature 0 % 0-0.5 [facility] - granulocytes/100 Good leukocytes in [facility] by Hospital Automated count Segmented 2.6 K/UL 2.3-7.6 [facility] - neutrophils Good [#/volume] in [facility] Lymphocytes 1.5 K/UL 0.9-4.2 [facility] - [#/volume] in [facility] Monocytes 0.4 K/UL 0.1-1.7 [facility] - [#/volume] in [facility] Eosinophils 0.2 K/UL 0.0-1.0 [facility] - [#/volume] in [facility] Basophils 0.0 K/UL 0.0-0.4 [facility] - [#/volume] in [facility] Immature 0.0 K/UL 0.0-0.17 [facility] - granulocytes Good [#/volume] in [facility] by Hospital Automated count Differential [facility] - cell count [facility] method [facility] ID Date Data Source [id number] 10/29/2019 07:40:21 PM EDT [facility] - [facility] Verbal shift change report given to Wai rogers RN(oncoming nurse) by Elizabeth Meehan RN (offgoing nurse). Report included the fo llowing information SBAR, Kardex, EDSummary, Intake/Output, MAR and Recent Results. Name Value Range Interpretation Code Description Data Melani rce(s) Supporting Document(s ) ID Date Data Source [id number] 10/30/2019 06:54:22 PM EDT [facility] Name Value Range Interpretation Description Data Sup porting Code Source(s) Document(s ) Color of Urine YEL [facility] Appearance of CLEAR [facility] - Urine [facility] Specific gravity 1.015 1.003-1. [facility] - of Urine by 030 Good Refractometry [facility] pH of Urine by 6.0 4.6-8.0 [facility] - Test strip [facility] Protein NEG [facility] - [Mass/volume] in Good Urine by Test [facility] Glucose NEG [facility] - [Mass/volume] in Good Urine by [facility] Automated test [facility] strip Ketones NEG [facility] - [Presence] in Good Urine by [facility] Automated test [facility] strip Bilirubin.total NEG [facility] - [Presence] in Good Urine [facility] Hemoglobin NEG [facility] - [Presence] in Good Urine by [facility] Urobilinogen 1.0 0.2-1.0 [facility] - [Presence] in EU/dL Good Urine by [facility] Automated test Hospital strip Nitrite NEG [facility] - [Presence] in Good Urine by [facility] Automated test Hospital strip Leukocyte NEG [facility] - esterase Good [Presence] in [facility] Urine by Hospital Automated test strip ID Date Data Source [id number] 10/29/2019 06:14:12 PM EDT [facility] Spoke with to clarify meds..correct doses obtained Name Value Range Interpretation Code Description Data Melani rce(s) Supporting Document(s ) ID Date Data Source [id number] 10/29/2019 06:01:22 PM EDT [facility] Pt unsure of dose of Vraylar will call w berta Name Value Range Interpretation Code Description Data Melani rce(s) Supporting Document(s ) ID Date Data Source [id number] 10/29/2019 03:56:40 PM EDT [facility] [id number] [employer] GSH 4 GEMA [place] MED SURG [address] [place] [address] [phone] Maxewll Bray (Male) [id number] [facility] 2 ED Dispo:ADMIT Chief Complaint: Dysarthria, Lethargy Diagnosis: Altered mental status, unspecified altered mental statu s type [] Bipolar disorder with severe depression (HCC) [] Current Providers: Att ending: Cole Ernandez; Cristi Canas Consulting Provider: Cristi Canas Primary Nurse: Kristy Moss Tech: Janet MCSN: [id number] [employer] [id number] - Bs hsi [employer] MrnMRN: [id number] [employer] [phone] - Bshsi [employer] Age Sex 1970 AGE 49 SEX Male Primary Care Provider: Ritika Canas MD Banhevlnp: (No Kn own Allergies)Date Reviewed: 10/29/2019Reviewed by: Ritika Canas MD - Review CompleteED Provider Notes: All no tesHNO ID: [id number]: Cristobal Ernandez MDService: -Author Type: PhysicianFiled: 10/29/19 [...] of morbidity or mortality cardiac cath at [facility] approx 6-8 months ago Other unknown and [...] QTC Calculation (Bezet) 446 ms Calculated P Center 53 degrees Calc ulated R Center 68 degrees Calculated T Center 0 degrees Diagnosis Sinus tachycardiaProlonged [place] intervalNo [...] Time: 10/29/19 10:45 AMResult Value Ref Range [place] level <0.20 (L) 0.6 - 1.2 MMOL/L [...] contrast. Sagittal and coronalreconstruction was performed. Utilizing booth usher algorithm theexaminationwas performed to optimize imaging quality [...] status, unspecified altered menta l status type R41.57352.97Patient condition at time of disposition: StableI have [...] d thediagnostic studies, unless otherwise noted.+ED Orders [id number] CBC WITH AUTOMATED DIFF [# [id number]] Priority: STAT Class: ER Collect Standing Order Information Remaining Occurrences:0 /1 Interval:ONE TIME Last released:10/29/2019 Released orders: SunOctober 29, 2019 11:02 AM by: CRISTOBAL ERNANDEZ [id number] METABOLIC PANEL, COMPREHENSIVE [#[id number]] Bridgette ority: STAT Class: ER Collect Standing Order Information Remaining Occurrences:0/1 Inter haile:ONE TIME Last released:10/29/2019 Released orders: SunOctober 29, 2019 11:02 AM by: CRISTOBAL WADE [id number] PROTHROMBIN TIME + INR [#[id number]] Priority: STAT Class: E R Collect Standing Order Information Remaining Occurrences:0/1 Interval:ONE TI ME Last released:10/29/2019 Released orders: SunOctober 29, 2019 11:02 AM by: BRIE ERNANDEZ EN [id number] PTT [#[id number]] Priority: STAT Class: ER Collect Speci men Source: Blood Standing Order Information Remaining Occurrences:0/1 Interval:ONE TI ME Last released:10/29/2019 Released orders: SunOctober 29, 2019 11:02 AM by: BRIE ERNANDEZ [id number] URINALYSIS W/ RFLX MICROSCOPIC [#[id number]] Priority: STAT Class: ER Collect Sta nding Order Information Remaining Occurrences:0/1 Interval:ONE TIME Last released:0 10/29/2019 Released orders: SunOctober 29, 2019 11:02 AM by: CRISTOBAL ERNANDEZ [id number] LITHIUM [#[id number]] Priority: STAT Class: ER Collect Standing Order Information Remaining Occurrences:0/1 Interval:ONE TIME Last released:10/29/2019 Released orders : SunOctober 29, 2019 11:02 AM by: CRISTOBAL ERNANDEZ [id number] CBC WITH AUTOMATED DIFF [# [id number]] Priority: STAT Class: ER Collect Specimen Source: Whole Blood Specimen Collected: 020 10:45 AM Resulting Agency: [facility] Test ID: [id number] Released on: 0 11:02 AM [id number] METABOLIC PANEL, COMPREHENSIVE [#[id number]] Priority: STAT Class: E R Collect Specimen Source: Plasma Specimen Collected: 10/29/2019 10:45 AM Resulting Agency: [facility] Test ID: MPL Released on: 10/29/2019 11:02 AM [id number] PROTHROMBIN TIME + IN R [#[id number]] Priority: STAT Class: ER Collect Specimen Source: Plasma Specimen Collec hyun: 10/29/2019 10:45 AM Resulting Agency: [facility] Test ID: APTHR Released o n: 10/29/2019 11:02 AM [id number] PTT [#[id number]] Priority: STAT Class: ER Collect Specimen Source: Plasma Specimen Collected: 10/29/2019 10:45 AM Resulting Agency: [facility] Test ID: APTT Released on: 10/29/2019 11:02 AM [id number] URINALYSIS W/ RFLX [place] CROSCOPIC [#[id number]] Priority: STAT Class: ER Collect Resulting Agency: [facility] Test ID: UA Released on: 10/29/2019 11:02 AM [id number] LITHIUM [#[id number]] Priority: STAT Class: ER Collect Specimen Source: Serum Specimen Collected: 10/28 10:45 AM Resulting Agency: [facility] Test ID: LI Released on: 10/29/2019 11:02 AM [id number] CBC WITH AUTOMATED DIFF [#[id number]] Priority: STAT Class: E R Collect Standing Order Information Remaining Occurrences:06/25 Interval:TOMORR OW AM [id number] METABOLIC PANEL, BASIC [#[id number]] Priority: STAT Class: ER Collect St anding Order Information Remaining Occurrences:06/25 Interval:TOMORROW AM [id number] CT HEAD W O CONT [#[id number]] Priority: Routine Class: Hospital Performed Standing Or mariano Information Remaining Occurrences:0/1 Interval:ONE TIME Last released:10/29/2019 Released orders: SunOctober 29, 2019 11:02 AM by: CRISTOBAL ERNANDEZ Reason for Exam -> ams IMG 2590 XR CHEST PORT [#[id number]] Priority: STAT Class: Hospital Performe d Standing Order Information Remaining Occurrences:0/1 Interval:ONE TIME Last release d:10/29/2019 Released orders: SunOctober 29, 2019 11:02 AM by: CRISTOBAL ERNANDEZ Reason for Exam -> ams [id number] CT HEAD WO CONT [#[id number]] Priority: STAT Class: Hospital Perfo rmed Specimen Collected: 10/29/2019 11:54 AM Resulting Agency: [facility] Test ID: [id number] Ivis son for Exam -> ams Released on: 10/29/2019 11:02 AM [id number] XR CHEST PORT [#[id number]] Priority: STAT Class: Hospital Performed Specimen Collected: 10/29/2019 12:16 PM Resultin g Agency: [facility] Test ID: [id number] Reason for Exam -> ams Released on: 10/29/2019 11:02 AM [id number] EKG, 12 LEAD, INITIAL [#[id number]] Priority: STAT Class: Hospital Performe d Standing Order Information Remaining Occurrences:0/1 Interval:ONE TIME Last release d:10/29/2019 Released orders: SunOctober 29, 2019 11:02 AM by: CRISTOBAL ERNANDEZ Reason for Exam : -> chest pain [id number] EKG, 12 LEAD, INITIAL [#[id number]] Priority: STAT Class: H ospital Performed Resulting Agency: [facility] Test ID: [id number] Reason for Exam: -> chest pain Releas ed on: 10/29/2019 11:02 AM [id number] POC GLUCOSE [#[id number]] Priority: STAT Cl ass: Hospital Performed Standing Order Information Remaining Occurrences:0/1 Interval:ONE TI ME Last released:10/29/2019 Released orders: SunOctober 29, 2019 11:02 AM by: BRIE ERNANDEZ HALI [id number] POC GLUCOSE [#[id number]] Priority: STAT Class: Hospital Performe d Released on: 10/29/2019 11:02 AM [id number] VITAL SIGNS PER UNIT ROUTINE [#[id number]] Priorit y: STAT Class: Hospital Performed Standing Order Information Remaining Occurrences:0/1 Inte rval:CONTINUOUS Last released:10/29/2019 Released orders: SunOctober 29, 2019 2:54 PM by: RITIKA CANAS Comment:More frequently if Indicated. [id number] BEDREST, COMPLETE [#[id number]] Priority: STAT Class: Hospital Performed Standing Order Information Remainin g Occurrences:0/1 Interval:CONTINUOUS Last released:10/29/2019 Released orders : SunOctober 29, 2019 2:54 PM by: RITIKA CANAS [id number] NOTIFY PROVIDER: VITAL SIGNS CHANGES [# [id number]] Priority: STAT Class: Hospital Performed Standing Order [...] Less than 120 ml in 4 hours [id number] APPLY/MAINTAIN SEQUENTIAL COMPRESSIO* [#[id number]] Priority: ST AT Class: Hospital Performed Standing Order Information Remaining Occurrences:0/1 Inter haile:CONTINUOUS Last released:10/29/2019 Released orders: SunOctober 29, 2019 2:54 PM by: RITIKA CANAS [id number] VITAL SIGNS PER UNIT ROUTINE [#[id number]] Priority: STAT Class: H ospital Performed Comment:More frequently if Indicated. Released on: 10/29/2019 2:54 PM [id number] 4 BEDREST, COMPLETE [#[id number]] Priority: STAT Class: Hospital Performed Relea sed on: 10/29/2019 2:54 PM [id number] NOTIFY PROVIDER: VITAL SIGNS CHANGES [#[id number]] Priority: STAT Class: Hospital Performed Temp -> [...] carmen rs Released on: 10/29/2019 2:54 PM [id number] APPLY/MAINTAIN SEQUENTIAL COMPRESSIO* [#[id number]] P riority: STAT Class: Hospital Performed Released on: 10/29/2019 2:54 PM SODIUM CHLORIDE 0.9 % IJ SYRG [#[id number]] Priority: STAT Class: Normal SODIUM CHLORIDE 0.9 % IJ SYRG [#[id number]] Priority: STAT Class: Normal ACETAMINOPHEN 325 MG TABLET [# [id number]] Priority: STAT Class: Normal ENOXAPARIN 40 MG/0.4 ML SUB-Q SYRINGE [#[id number]] Priority: STAT Class: Normal SODIUM CHLORIDE 0.9 % IV [#[id number]] Priority: STAT Class: Normal [id number] GLUCOSE, POC [#[id number]] Priority: Routine Class : ER Collect Resulting Agency: [facility] Test ID: BGG Standing Order Informati on Remaining Occurrences:0/1 Released orders: SunOctober 29, 2019 11:26 AM by: Automatic B [facility] Process [id number] GLUCOSE, POC [#[id number]] Priority: Routine Class : ER Collect Specimen Source: Whole Blood Specimen Collected: 10/29/2019 11:26 AM Resulting Agency: [facility] Test ID: BGG Released on: 10/29/2019 11:26 AM INU984 IP CONSULT TO PRIMARY CARE PROVIDER [#[id number]] Priority: STAT Class: Hospital Performed Standing Order Inf ormation Remaining Occurrences:0/1 Interval:ONE TIME Last released:10/29/2019 Relea sed orders: SunOctober 29, 2019 12:59 PM by: CRISTOBAL ERNANDEZ Reason for Consult: -> admit Did you call or speak to the consulting provider? -> No Consult To -> dr canas [id number] IP CONSULT TO PRIMAR Y CARE PROVIDER [#[id number]] Priority: STAT Class: Hospital Performed Reason for Consult: -> ad rei Did you call or speak to the consulting provider? -> No Consult To -> dr canas Released on: 12:59 PM CON53 IP CONSULT TO PSYCHIATRY [#[id number]] Priority: STAT Class: H ospital Performed Standing [...] -> TODAY CON53 IP CONSULT TO PSYCHIATRY [#[id number]] Priority: STAT Class: Hospital Performed Reason for Consult: -> 49 yo male with severe bipolar diseas e, admitted with slurred speech, severe weakness Did you call or speak to t he consulting provider? -> No Consult To -> Dr Aguirre Schedule When? -> TODAY Released on: 10/29/2019 2:54 PM [id number] INITIAL PHYSICIAN ORDER: INPATIENT [#[id number]] Priority: Routine Class : ADT Pend Transfer [...] depression (HCC) Admitting P hysician -> RITIKA ACNAS Attending Physician -> RITIKA CANAS Estimated Length of Stay -> 3-4 Midn ights Discharge Plan: -> Home with Office Follow-up [id number] INITIAL PHYSICIAN ORDER: INPATIENT [# [id number]] Priority: Routine Class: ADT Pend Transfer Status: [...] Foll ow-up Released on: 10/29/2019 2:43 PM [id number] INITIAL PHYSICIAN ORDER: INPATIENT [#[id number]] Priority: Routine Class: ADT Pend Transfer [...] 3-4 Midnights Discharge Plan: -> Other (Specify) [id number] INITIAL PHYSIC JOSE ORDER: INPATIENT [#[id number]] Priority: Routine Class: ADT Pend Transfer Status: [...] 2:54 PM IVT3 INSERT PERIPHERAL IV [# [id number]] Priority: STAT Class: Hospital Performed Standing Order Information Remaining Occurre nces:0/1 Interval:ONE TIME Last released:10/29/2019 Released orders: SunOctober 28 2:54 PM by: RITIKA CANAS IVT3 INSERT PERIPHERAL IV [#[id number]] Priority: ST AT Class: Hospital Performed Released on: 10/29/2019 2:54 PM CON75 IP CONSULT TO PHYSICAL THERAPY [#[id number]] Priority: STAT Class: Hospital Performed Standing Order Information Remainin g Occurrences: Interval:DAILY Last released:10/29/2019 Released orders : SunOctober 29, 2019 2:54 PM by: RITIKA CANAS CON75 IP CONSULT TO PHYSICAL THERAPY [#[id number]] Priority: STAT Class: Hospital Performed Released on: 10/29/2019 2:54 PM COD2 FULL CODE [#[id number]] Priority: STAT Class: Hospital Performed Standing Order Inf ormation Remaining Occurrences:0/1 Interval:CONTINUOUS Last released:10/29/2019 Rel eased orders: SunOctober 29, 2019 2:54 PM by: RITIKA CANAS COD2 FULL CODE [#[id number]] Priority: STAT Class: Hospital Performed Released on: 10/29/2019 2:54 PM DIET10 4 DIET FULL LIQUID [#[id number]] Priority: STAT Class: Hospital Performed Stand ing Order Information Remaining Occurrences:0/1 Interval:DIET EFFECTIVE NOW Last released:10/29/2019 Released orders: SunOctober 29, 2019 2:54 PM by: RITIKA CANAS Comment:A dvance as tolerated to regular diet [id number] DIET FULL LIQUID [#[id number]] Priority: STAT Class: Hospital Performed Comment:Advance as tolerated to regular diet Released on: 10/29/2019 2:54 JesusitaMaxwell mcleod MR#: [id number] * Rm: [id number]: 5' 7" Wt: 3 00 lb Code: Full Code Iso:Diagnosis:Bipolar disorder with severe depression (HCC) [F31.4]Allergies : No Known Allergies -------- Current as of: 10/29/19 1556 ---aspirin (ASPIRIN) tablet 325 mg #[id number] Admin Amount: 1 Tab (1 x 325 mg Tab) Ordered Dose: 325 mg Route: Oral Freq: ONCE Start Date: 12/24/13 No administration times (back 96 hours, ahead 96 hours). ------diphenhydrAMINE (BENADRYL) capsule 50 mg #[id number] Admin Amount: 1 Cap (1 x 50 mg Cap) Ordered Dose: 50 mg Ro wrangell: Oral Freq: NOW Start Date: 12/24/13 No administration times (back 96 hours, ahe ad 96 hours). ------diazepam (VALIUM) tablet 5 mg #[id number] Admin Amount: 1 Tab (1 x 5 mg Tab) Ordered Dose: 5 mg Route: Ora l Freq: ONCE Start Date: 12/24/13 No administration times (back 96 hours, ahe ad 96 hours). ------lidocaine (XYLOCAINE) 10 mg/mL (1 %) injection 1-30 mL #[id number] Admin Amount: 1-30 mL Ordered Dose: 1-30 mL Route: IntraDERMal Freq: ONC E Start Date: 12/24/13 No administration times (back 96 hours, ahead 96 hours). ------heparin (PF) 2 units/ml in NS infusion 2,000 Units #[id number] Admin Amount: 1,000 mL = 2,000 Units of 2 Units/mL Ordered Dose: 1,000 mL Route: Irrigation Freq: ONCE Start Date: 12/24/13 No administration times (b ack 96 hours, ahead 96 hours). ------heparinized saline 2 units/mL infusion 1,000 Units #[id number] Admin Amount: 500 mL = 1,000 Units of 2 Units/mL Ordered Dose: 500 mL R oute: IntraarTERial Freq: ONCE Start Date: 12/24/13 No administration times (back 96 hours, ahead 96 hours). ------0.9% sodium chloride infusion #[id number] Ordered Dose: 75 mL/hr Route: IntraVENous Freq: CONTINUOUS Start Date: 12/24/13 Rate: 75 mL/hr Duration: No administration times (back 96 hours, ahead 96 hours). ------ioversol (OPTIRAY) 320 mg iodine/mL contrast injection 1-100 mL #[id number] Admin Amount: 1-100 mL Ordered Dose: 1-100 mL Route: IntraVENous Freq: RAD ONCE Start Date: 12/24/13 No administration times (back 96 hours, ahead 96 hours).Maxwell Bray MR#: [id number] * Rm: [id number]: 5' 7" Wt: 300 lb Code: Full Code Iso:Diagnosis:Bipolar disorder with severe depression ([facility]) [F31.4]Allergies: No Kn own Allergies -------- Current as of: 10/29/19 1556 ---gadobutrol (GADAVIST) contrast solution 1-10 mL #[id number] Admin Amount: 1-10 mL Ordered Dose: 1-10 mL Route: IntraVENo us Freq: RAD ONCE Start Date: 01/13/14 No administration times (back 96 hours, [facility] ad 96 hours). ------sodium chloride (NS) flush 5-10 mL #[id number] Admin Amount: 5-10 mL Ordered Dose: 5-10 mL Route: IntraVENous Freq: RA D ONCE Start Date: 01/13/14 No administration times (back 96 hours, ahead 96 hours). ------sodium chloride (NS) 0.9 % flush #[id number] Ordered Dose: Route: Freq: Start D ate: 01/13/14 No administration times (back 96 hours, ahead 96 hours). ------morphine injection 2 mg #[id number] Admin Amount: 1 mL = 2 mg of 2 mg/mL Ordered Dose: 2 mg Route: Int raVENous Freq: NOW Start Date: 03/13/15 No administration times (back 96 hours, [facility] ad 96 hours). ------influenza vaccine (4 yr+)(PF) (FLUCELVAX QUAD) inj ection 0.5*#[id number] Admin Amount: 0.5 mL Ordered Dose: 0.5 mL Route: IntraMUSCular Freq : PRIOR TO DISCHARGE Start Date: 03/30/16 No administration times (back 96 hours, ahead 96 hours). ------oxyCODONE-acetaminophe n (PERCOCET) 5-325 mg per tablet 1 Tab #[id number] Admin Amount: 1 Tab Ordered Dose: 1 Tab Route: Oral Freq: NOW Start Date: 09/07/17 No administration times (back 96 hours, ahead 96 hours). ------barium sulfate (READICAT) 2.1 % (w/v), 2.0 % (w /w) oral suspension 9*#[id number] Admin Amount: 900 mL Ordered Dose: 900 mL Route: Ora l Freq: RAD ONCE Start Date: 10/15/17 No administration times (back 96 hours, ahe ad 96 hours). ------iopamidol (ISOVUE 300) 61 % contrast injection 100 mL #[id number] Admin Amount: 100 mL Ordered Dose: 100 mL Route: IntraVENous Freq: RAD O NCE Start Date: 10/15/17 No administration times (back 96 hours, ahead 96 hours).Maxwell Bray MR#: [id number] * Rm: [id number]: 5' 7" Wt: 300 lb Cod e: Full Code Iso:Diagnosis:Bipolar disorder with severe depression (HCC) [F31.4]Allergies: No Kn own Allergies -------- Current as of: 10/29/19 1556 ---risperiDONE (RisperDAL m-tabs) disintegrating tablet 1 mg #[id number] Admin Amount: 1 Tab (1 x 1 mg Tab) Ordered Dose: 1 mg Ro wrangell: Oral Freq: ONCE Start Date: 12/24/17 No administration times (back 96 hours, e ad 96 hours). ------ALPRAZolam (XANAX) tablet 2 mg #[id number] Admin Amount: 4 Tab (4 x 0.5 mg Tab) Ordered Dose: 2 mg Route: Ora l Freq: NOW Start Date: 12/24/17 No administration times (back 96 hours, e ad 96 hours). ------lamoTRIgine (LaMICtal) tablet 100 mg #[id number] Admin Amount: 1 Tab (1 x 100 mg Tab) Ordered Dose: 100 mg Route: Ora l Freq: ONCE Start Date: 12/24/17 No administration times (back 96 hours, e ad 96 hours). ------OLANZapine (ZyPREXA zydis) disintegrating tablet 5 mg #[id number] Admin Amount: 1 Tab (1 x 5 mg Tab) Ordered Dose: 5 mg Route: Ora l Freq: ONCE Start Date: 12/25/17 No administration times (back 96 hours, e ad 96 hours). ------LORazepam (ATIVAN) tablet 2 mg #[id number] Admin Amount: 4 Tab (4 x 0.5 mg Tab) Ordered Dose: 2 mg Route: Ora l Freq: NOW Start Date: 12/25/17 No administration times (back 96 hours, e ad 96 hours). ------LORazepam (ATIVAN) injection 1 mg #[id number] Admin Amount: 0.5 mL = 1 mg of 2 mg/mL Ordered Dose: 1 mg Ro wrangell: IntraVENous Freq: NOW Start Date: 12/25/17 No administration times (back 96 hours, ahead 96 hours). ------barium sulfate (EZ PAQUE) 96 % (w/w) contrast suspension 17 6 g #[id number] Admin Amount: 176 g Ordered Dose: 176 g Route: Oral Freq: RAD ONCE Start Date: 08/02/18 No administration times (back 96 hours, ahead 96 hours). ------barium sulfate (EZ PAQUE) 96 % (w/w) contrast suspension 17 6 g #[id number] Admin Amount: 176 g Ordered Dose: 176 g Route: Oral Freq: RAD ONCE Start Date: 08/02/18 No administration times (back 96 hours, ahead 96 hours).Maxwell Bray MR#: [id number] * Rm: [id number]: 5' 7" Wt: 300 lb Code: Full Co de Iso:Diagnosis:Bipolar disorder with severe depression ([facility]) [F31.4]Allergies: No Known Allergies -------- Current as of: 05/06/20 1556 ---aspirin chewable tablet 162 mg #[id number] Admin Amount: 2 Tab (2 x 81 mg Tab) Ordered Dose: 162 mg Route: Ora l Freq: NOW Start Date: 08/10/19 No administration times (back 96 hours, ahe ad 96 hours). ------0.9% sodium chloride infusion 1,000 mL #[id number] Admin Amount: 1,000 mL Ordered Dose: 1,000 mL Route: IntraVENous Freq: O NCE Start Date: 08/16/19 Rate: 1,000 mL/hr Duration: No administratio n times (back 96 hours, ahead 96 hours). ------methylPREDNISolone (PF) (Solu-MEDROL) injection 125 mg #[id number] Admin Amount: 2 mL = 125 mg of 125 mg/2 mL Ordered Dose: 125 mg Ro wrangell: IntraVENous Freq: NOW Start Date: 08/16/19 No administration times (back 9 6 hours, ahead 96 hours). ------aspirin chewable tablet 162 mg #[id number] Admin Amount: 2 Tab (2 x 81 mg Tab) Ordered Dose: 162 mg Route: Ora l Freq: NOW Start Date: 08/16/19 No administration times (back 96 hours, ahe ad 96 hours). ------sodium chloride (NS) flush 5-40 mL #[id number] Admin Amount: 5-40 mL Ordered Dose: 5-40 mL Route: IntraVENous Freq: EV AN 8 HOURS Start Date: 10/29/19 Administration times (back 96 hours, ahead 96 hours): : 1400 2200 10/30/19: 0600 1400 2200 10/31/19: 0600 1400 2200 11/01/19: 0600 1400 2200 11/02/19: 0600 1400 ---sodium chloride (NS) flush 5-40 mL #[id number] Admin Amount: 5-40 mL Ordered Dose: 5-40 mL Route: IntraVENous Freq: NEEDED Start Date: 10/29/19 No administration times (back 96 hours, ahead 96 hours). ------acetaminophen (TYLENOL) tablet 650 mg #[id number] Admin Amount: 2 Tab (2 x 325 mg Tab) Ordered Dose: 650 mg Ro wrangell: Oral Freq: EVERY 4 HOURS NEEDED Start Date: 10/29/19 No administration times (back 96 hours, ahe ad 96 hours).Maxwell Bray MR#: [id number] * Rm: [id number]: 5' 7" Wt: 3 00 lb Code: Full Code Iso:Diagnosis:Bipolar disorder with severe depression (HCC) [F31.4]Allergies : No Known Allergies -------- Current as of: 10/29/19 1556 ---enoxaparin (LOVENOX) injection 40 mg #[id number] Admin Amount: 0.4 mL = 40 mg of 40 mg/0.4 mL Ordered Dose: 40 mg Route: SubCUTAneous Freq: EVERY 24 HOURS Start Date: 10/29/19 Administration times (back 96 hours, ahead 96 hours): 10/29/19: 145410/30/19: 14510/31/19: 14511/01/19: 14511/02/19 : 1455 ---0.9% sodium chloride infusion #[id number] Ordered Dose: 100 mL/hr Route: IntraVENous Freq: [...] Supporting Document(s ) ID Date Data Source [id number] 10/29/2019 03:54:13 PM EDT [facility] History & PhysicalBrian Anam Bray is a [...] of morbidity or mortality cardiac cath at [facility] approx 6-8 months ag o Other unknown [...] trast. Sagittal and coronal reconstruction was performed.Utilizing booth usher alg orithm the examination was performed to [...] QTC Calculation (Bezet) 446 ms Calculated P Center 53 degrees Calculat ed R Center 68 degrees Calculated T Center 0 degrees Diagnosis Sinus tachycardiaProl onged [place] [...] lydia: 10/29/19 10:45 AMResult Value Ref Range [place] level <0.20 (L) 0.6 - 1.2 MMOL/L GLUCOSE, POC Collection Time: 10/29/19 11:26 AMResult Value Ref Range Glucose, bedsid e 102 65 - 110 MG/DLAll lab results for the last 24 hours reviewed.Assessment/PlanAc tive Problems: Bipolar disorder with severe depression (HCC) (10/29/2019) possible [place] dvertentoverdoseGeaustin Canas MD Name Value Range Interpretation Code Description Data Melani rce(s) Supporting Document(s ) ID Date Data Source [id number] 10/29/2019 03:42:10 PM EDT [facility] TRANSFER - OUT REPORT:Verbal report give n [...] Supporting Document(s ) ID Date Data Source [id number] 10/29/2019 02:28:59 PM EDT [facility] The history is provided by the spouse.10 [...] morbidity or mortal ity cardiac cath at [facility] approx 6-8 months ago Other unknown and [...] QTC Calculation (Bezet) 446 ms Calculated P Center 53 degr ees Calculated R Center 68 degrees Calculated T Center 0 degrees Diagnosis Sinus tachycar diaProlonged [place] [...] lydia: 10/29/19 10:45 AMResult Value Ref Range [place] level <0.20 (L) 0.6 - 1.2 MMOL/L [...] Sagittal and coronalreconstru ction was performed. Utilizing booth usher algorithm the examinationwas performed t o optimize [...] Supporting Document(s ) ID Date Data Source [id number] 10/29/2019 12:17:28 PM EDT [facility] XR CHEST PORTCLINICAL INDICATION PROVIDE D:. "ams."TECHNIQUE.: [...] Supporting Document(s ) ID Date Data Source [id number] 10/29/2019 11:55:57 AM EDT [facility] CT HEAD WO CONTClinical data: amsPriors: 03/13/2015.Technique: Multiple axial images were obtained from the skullbase to the vertexwithout administration of intravenous contrast. Sagittal and coronalreconstru ction was performed. Utilizing booth usher algorithm the examinationwas performed t o optimize [...] Supporting Document(s ) ID Date Data Source [id number] 10/29/2019 11:48:34 AM EDT [facility] Name Value Range Interpretation Description Data Sup porting Code Source(s) Document(s ) Glucose 102 MG/DL 65-110 [facility] - Good [Mass/volume] [facility] in Blood by [facility] Automated test strip ID Date Data Source [id number] 10/29/2019 10:49:56 AM EDT [facility] Patient lethargic, BIBA from home for le thargy and slurred speech. Name Value Range Interpretation Code Description Data Melani rce(s) Supporting Document(s ) ID Date Data Source [id number] 10/29/2019 11:29:33 AM EDT [facility] Name Value Range Interpretation Code Description Data Supporting Source(s) Document(s ) [place] 0.6-1.2 Below low normal [facility] - Good [Moles/volum [facility] e] in Serum Hospital or Plasma ID Date Data Source [id number] 10/29/2019 11:28:52 AM EDT [facility] Name Value Range Interpretation Description Data Sup porting Code Source(s) Document(s ) Sodium 136 136-145 [facility] - Good [Moles/volume] mmol/L [facility] in Serum or Hospital Plasma Potassium 4.4 3.5-5.1 [facility] - Good [Moles/volume] mmol/L [facility] in Serum or Hospital Plasma Chloride 106 98-107 [facility] - Good [Moles/volume] mmol/L [facility] in Serum or Hospital Plasma Carbon 22 21-32 [facility] - Good dioxide, total mmol/L [facility] [Moles/volume] Hospital in Serum or Plasma Anion gap in 12 10-20 [facility] - Good Serum or mmol/L [facility] Plasma Hospital Glucose 108 74-106 Above high normal [facility] - Good [Mass/volume] mg/dL [facility] in Serum or Hospital Plasma Urea nitrogen 16 mg/dL 7-18 [facility] - Good [Mass/volume] [facility] in Serum or Hospital Plasma Creatinine 1.05 0.70-1.3 [facility] - Good [Mass/volume] mg/dL 0 [facility] in Serum or Hospital Plasma Glomerular >60 [facility] - Good filtration [facility] rate/1.73 sq M Hospital predicted among blacks [Volume Rate/Area] in Serum or Plasma by Creatinine-bas ed formula (MDRD) Glomerular >60 [facility] - Good filtration [facility] rate/1.73 sq M Hospital predicted among non-blacks [Volume Rate/Area] in Serum or Plasma by Creatinine-bas ed formula (MDRD) (NOTE)Estimated GFR is calculated using the Modification of Diet in RenalDisease (MDRD) Study equation, reported for both Americans(GFRAA) and non- Americans (GFRNA), and normalized to 1.7 [id number] surface area. The physician must decide which [...] 8.5-10.1 [facility] - Good Serum or Plasma [facility] ital Bilirubin.total 0.7 mg/dL 0.2-1.0 [facility] - Good [Mass/volume] in Serum or [facility] Plasma Alanine aminotransferase 30 U/L 13-61 [facility] - Good [Enzymatic activity/volume] [facility] in Serum or Plasma Aspartate aminotransferase 27 U/L 15-37 [facility] HS - Good [Enzymatic activity/volume] [facility] in Serum or Plasma by With P-5'-P Alkaline phosphatase 139 U/L 45-117 Above high [facility] - Good [Enzymatic activity/volume] normal [facility] in Serum or Plasma Protein [Mass/volume] in 7.6 g/dL 6.4-8.2 [facility] - Good Serum or Plasma [facility] ital Albumin [Mass/volume] in 3.9 g/dL 3.5-4.7 [facility] - Good Serum or Plasma by [facility] Bromocresol purple (BCP) dye binding method Globulin [Mass/volume] in 3.7 g/dL 1.7-4.7 [facility] - Good Serum by calculation [facility] Albumin/Globulin [Mass 1.0 0.7-2.8 [facility] - Good Ratio] in Serum or Plasma [facility] ID Date Data Source [id number] 10/29/2019 11:20:29 AM [facility] Name Value Range Interpretation Description Data Sup porting Code Source(s) Document(s ) aPTT in 22.2 SEC 21.0-28. [facility] - Good Platelet poor 0 [facility] plasma by [facility] Coagulation assay Therapeutic Range = 42.0-60.0 secs ID Date Data Source [id number] 10/29/2019 11:20:29 AM EDT [facility] Name Value Range Interpretation Description Data Sup porting Code Source(s) Document(s ) Prothrombin 10.3 sec 9.4-11.1 [facility] - Good time (PT) [facility] INR in 1.0 0.8-1.2 [facility] - Good Platelet poor [facility] plasma by Hospital Coagulation assay ID Date Data Source [id number] 10/29/2019 11:11:49 AM EDT [facility] Name Value Range Interpretation Description Data Sup porting Code Source(s) Document(s ) Leukocytes 8.1 K/uL 4.8-10.6 [facility] - [#/volume] in Good Blood by [facility] count [facility] Erythrocytes 5.52 4.70-6.0 [facility] - [#/volume] in M/uL 0 Good Blood by [facility] count [facility] Hemoglobin 16.7 14.0-18. [facility] - [Mass/volume] in g/dL 0 Good Blood [facility] Hematocrit 51.8 % 42.0-52. [facility] - [Volume 0 Good Fraction] of [facility] Blood by Hospital Automated count Erythrocyte mean 93.8 FL 81.0-94. [facility] - corpuscular 0 Good volume [Entitic [facility] volume] by Hospital Automated count Erythrocyte mean 30.3 PG 27.0-35. [facility] - corpuscular 0 Good hemoglobin [facility] [Entitic mass] Hospital by Automated count Erythrocyte mean 32.2 30.7-37. [facility] - corpuscular g/dL 3 Good hemoglobin [facility] concentration Hospital [Mass/volume] by Automated count Erythrocyte 13.2 % 11.5-14. [facility] - distribution 0 Good width [Ratio] by [facility] Automated count Hospital Platelets 193 K/uL 130-400 [facility] - [#/volume] in [facility] Blood by [facility] Automated count Hospital Platelet mean 8.6 FL 9.2-11.8 Below low normal [facility] - volume [Entitic Good volume] in Blood [facility] by Automated Hospital count Nucleated 0.0 PER 0 [facility] - erythrocytes/100 100 WBC Good leukocytes [facility] [Ratio] in Blood [facility] Nucleated 0.00 0.0-0.01 [facility] - erythrocytes K/uL Good [#/volume] in [facility] Segmented 79 % 48.0-72. Above high normal [facility] - neutrophils/100 0 Good leukocytes in [facility] Lymphocytes/100 10 % 18.0-40. Below low normal [facility] - leukocytes in 0 [facility] Blood [facility] Monocytes/100 8 % 2.0-12.0 [facility] - leukocytes in [facility] Eosinophils/100 1 % 0.0-7.0 [facility] - leukocytes in [facility] Blood [facility] Basophils/100 0 % 0.0-3.0 [facility] - leukocytes in [facility] Blood [facility] Immature 1 % 0-0.5 Above high normal [facility] - granulocytes/100 Good leukocytes in [facility] Blood by Hospital Automated count Segmented 6.4 K/UL 2.3-7.6 [facility] - neutrophils Good [#/volume] in [facility] Lymphocytes 0.8 K/UL 0.9-4.2 Below low normal [facility] - [#/volume] in [facility] Blood [facility] Monocytes 0.7 K/UL 0.1-1.7 [facility] - [#/volume] in [facility] Eosinophils 0.1 K/UL 0.0-1.0 [facility] - [#/volume] in [facility] Basophils 0.0 K/UL 0.0-0.4 [facility] - [#/volume] in [facility] Immature 0.1 K/UL 0.0-0.17 [facility] - granulocytes Good [#/volume] in [facility] Automated count Differential [facility] - cell count [facility] ID Date Data Source [id number] 09/15/2019 09:44:01 AM EDT [facility] Clinical Indications/Reason For Exam: pa in.AP, open-mouth [...] Supporting Document(s ) ID Date Data Source [id number] 09/15/2019 09:41:40 AM EDT [facility] THORACIC SPINE 4 views.History: Pain.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 Signing date/time: 09/15/2019 9:41 AMSigned by: CURTIS VARMA Name Value Range Interpretation Code Description Data Melani rce(s) Supporting Document(s ) ID Date Data Source [id number] 09/15/2019 09:40:53 AM EDT [facility] Clinical indications with reason for exa m: [...] Range Interpretation Code Description Data [facility] rce(s) Supporting Document(s ) ID Date Data Source [id number] 08/17/2019 08:25:20 AM [facility] History: Chest PainTechnique: Portable c hest x-ray 08/16/2019 9:40 PMComparison: 08/11/2019. FINDINGS: There is linear ate lectasis in the left lung base.No focal infiltrate or effusion is identified. Ev aluation of the cardiac silhouette is limited by projection.The visualized osseous str uctures appear unremarkable.IMPRESSION: No focal infiltrate or effusion Signing marlon e/time: 08/17/2019 8:25 AMSigned by: RAAMNDEEP SANTANA Name Value Range Interpretation Code Description Data [facility] rce(s) Supporting Document(s ) ID Date Data Source [id number] 08/16/2019 11:12:22 PM [facility] The history is provided by the [...] m orbidity or mortality cardiac cath at [facility] approx 6-8 months ago Other unknown and [...] Calculation (Bezet) 429 ms Ca lculated P Center 36 degrees Calculated R Center 77 degrees Calculated T Center -24 degrees Diagnosis Sinus tachycardiaBorderline T abnormalities, [...] Time: 08/16/19 9:00 PMResult Value Ref Range [place] level 0.21 (L) 0.6 - 1.2 MMOL/LEKG: sinus tach ycardia, rate 109Radiology:CXR: no acute findings<EMERGENCY DEPARTMENT CASE [facility]>Impression/Differential Diagnosis: Allergic reaction allergic, drug reactio n,ACS, pulmonary embolismED Course: Patient presents short of breath and mildly tach ycardic complainingof new onset rash to face anterior chest and posterior chest.Plan: Labs, chest x-ray, EKG, troponin, d-dimer, prednisone, Pepcid, egdisblbzxy89:04 PM patient verbalizes relief of symptoms rash has faded. He denies chestpain he denie s shortness of breath.Patient was advised that we cannot rule out allergic drug re action as he isrecently just restarted taking his lithium. Patient advised to discuss takinglithium with his psychiatrist as soon as possible.Patient reassessed at [facility] e by me. Feels better at present, wants to go home.Patient was told to follow up with the primary doctor in 1-2 days and return [facility] ED for any worsening severe pain, [...] of disposition: stableI have [facility] medications:Prior to Admission medicationsMedication Sig Start [...] 36N*ENCOUNTER 08/16/2019 10:46:05 PM EST [facility] [id number] [facility] EM[facility]GENCY [facility] [address] [facility] [address] [phone] Maxwell Bray (Male) [id number] ES I 3 ED Dispo:DISCHARGE Chief Complaint: Allergic Reaction Diagnosis: Allergic reaction, initial encounter [] Allergic reaction to drug, in itial encounter [] Current Providers: Attending: Javier Quezada Nurse Practitioner: Javier Ward Primary Nurse: HARINDER AcuñaN: [id number] [employer] [phone] - [facility] [employer] MrnMRN: [id number] [employer] [id number] - [facility] [employer] Age Sex 1970 AGE 49 SEX Male Primary Care Provider: Ritika Canas MD Kbjduqdos: (No Known Allergies)Date Reviewed: 08/16/2019Reviewed by: Zahraa Prince RN - Review CompleteED Provider Notes: No not es of this type exist for this encounter.ED Orders BUPROPION XL 300 MG 24 HR TAB [#[id number]] Priority: Routine Class: Historical Med LITHIUM CARBONATE 150 MG CAP [#[id number]] Priority: Routine Class: Historical Med FAMOTIDINE 20MG + NS 10 ML IV [#[id number]] Priority: STAT Class: Normal H2RA INDICATION -> Adverse reaction/Anaphylaxis SODIUM CH LORIDE 0.9 % IV [#[id number]] Priority: STAT Class: Normal METHYLPREDNISOLONE (PF) 125 MG/2 ML * [#[id number]] Priority: STAT Class: Normal ASPIRIN 81 MG CHEWABLE TAB [# [id number]] Priority: STAT Class: Normal PREDNISONE 50 MG TAB [#[id number]] Bridgette ority: Routine Class: Normal [id number] SOURCING SPECIALIST - ED ONLY [#[id number]] Priority: STAT C lass: Hospital Performed Standing Order Information Remaining Occurrences:0/1 Interval:Contin uous Last released:08/16/2019 Released orders: Sat Aug 16, 2019 9:02 PM by: Javier POLLOCK Type: -> Bedside [id number] OBTAIN OLD EKG [#[id number]] Priority: Routi ne Class: Hospital Performed Standing Order Information Remaining Occurrences:0/1 Inter haile:ONE TIME Last released:08/16/2019 Released orders: Sat Aug 16, 2019 9:02 PM by: INDIO WARD [id number] PULSE OXIMETRY CONTINUOUS [#[id number]] Priority: STAT Class: H ospital Performed Standing Order Information Remaining Occurrences:0/1 Interval:CONTIN UOUS Last released:08/16/2019 Released orders: Sat Aug 16, 2019 9:02 PM by: Javier POLLOCK [id number] SOURCING SPECIALIST - ED ONLY [#[id number]] Priority: STAT Class: Hospital Perfo rmed Type: -> Bedside Released on: 08/16/2019 9:02 PM [id number] OBTAIN OLD EKG [#[id number]] Priority: STAT Class: Hospital Performed Released on: 08/16/2019 9:02 PM [id number] PULSE OXIMETRY CONTINUOUS [#[id number]] Priority: STAT Class: Hospital Performed Relea sed on: 08/16/2019 9:02 PM [id number] DIET NPO [#[id number]] Priority: STAT Cla ss: Hospital Performed Standing Order Information Remaining Occurrences:0/1 Interval:DIET E FFECTIVE NOW Last released:08/16/2019 Released orders: Sat Aug 16, 2019 9:02 PM by: INDIO WARD NPO options: -> With Meds [id number] DIET NPO [#[id number]] Priority: STAT Class: Hospital Performed NPO options: -> With Meds Released on: 08/16/2019 9:02 PM [id number] SALINE LOCK IV [#[id number]] Priority: STAT Class: Hospital Performe d Standing Order Information Remaining Occurrences:0/1 Interval:ONE TIME Last released: 08/16/2019 Released orders: Sat Aug 16, 2019 9:02 PM by: INDIO POLLOCK [id number] SALIN E LOCK IV [#[id number]] Priority: STAT Class: Hospital Performed Released on : 08/16/2019 9:02 PM [id number] METABOLIC PANEL, COMPREHENSIVE [#[id number]] Priority: STAT Class: E R Collect Standing Order Information Remaining Occurrences:0/1 Interval:ONE TIME Last r eleased:08/16/2019 Released orders: Sat Aug 16, 2019 9:02 PM by: INDIO POLLOCK [id number] CBC WITH AUTOMATED DIFF [#[id number]] Priority: STAT Class: ER Collect Standing Order Info rmation Remaining Occurrences:0/1 Interval:ONE TIME Last released:08/16/2019 Released orders: Sat Aug 16, 2019 9:02 PM by: INDIO POLLOCK [id number] TROPONIN I [#[id number]] Priority: STAT Class: ER Collect Standing Order Information Remaining Occurre nces:0/1 Interval:ONE TIME Last released:08/16/2019 Released orders: Sat Aug 16 9:02 PM by: INDIO POLLOCK [id number] MAGNESIUM [#[id number]] Priorit y: STAT Class: ER Collect Standing Order Information Remaining Occurrences:0/1 Inter haile:ONE TIME Last released:08/16/2019 Released orders: Sat Aug 16, 2019 9:02 PM by: INDIO WARD [id number] D DIMER [#[id number]] Priority: STAT Class: E R Collect Standing Order Information Remaining Occurrences:0/1 Interval:ONE TIME Last r eleased:08/16/2019 Released orders: Sat Aug 16, 2019 9:02 PM by: INDIO POLLOCK [id number] METABOLIC PANEL, COMPREHENSIVE [#[id number]] Priority: STAT Class: ER Collect Specimen Source: Plas ma Specimen Collected: 08/16/2019 9:00 PM Resulting Agency: [facility] Test ID: MPL Released on: 08/16/2019 9:02 PM [id number] CBC WITH AUTOMATED DIFF [#[id number]] Prior ity: STAT Class: ER Collect Specimen Source: Whole Blood Specimen Collected: 08/16/2019 9:00 PM Resultin g Agency: [facility] Test ID: [id number] Released on: 08/16/2019 9:02 PM [id number] TROPONIN I [#[id number]] Priority: STAT Class: ER Collect Specimen Source : Plasma Specimen Collected: 08/16/2019 9:00 PM Resulting Agency: [facility] Test ID: TROIP Released on: 08/16/2019 9:02 PM [id number] MAGNESIUM [#[id number]] Priority: STAT Class: ER Collect Specimen Source: Plasma Specimen Collected: 08/16/2019 9:00 PM Resultin g Agency: [facility] Test ID: MGPL Released on: 08/16/2019 9:02 PM [id number] D DIMER [#[id number]] Priority: STAT Class: ER Collect Specimen Source : Plasma Specimen Collected: 08/16/2019 9:00 PM Resulting Agency: [facility] Test ID: [id number] Released on: 08/16/2019 9:02 PM [id number] LITHIUM [#[id number]] Priority: STAT Class: ER Collect Standing Order Information Remaining Occurrences:0/1 Inter haile:ONE TIME Last released:08/16/2019 Released orders: Sat Aug 16, 2019 9:02 PM by: INDIO WARD [id number] LITHIUM [#[id number]] Priority: STAT Class: E R Collect Specimen Source: Serum Specimen Collected: 08/16/2019 9:00 PM Resulting Agency: [facility] Test ID: LI Released on: 08/16/2019 9:02 PM [id number] EKG, 12 LEAD, INITIAL [#[id number]] Priority: STAT Class: Hospital Performed Standing Order Information Remainin g Occurrences:0/1 Interval:ONE TIME Last released:08/16/2019 Released orders : Sat Aug 16, 2019 9:02 PM by: INDIO POLLOCK Reason for Exam: -> Chest Pain [id number] EKG, 12 LEAD, INITIAL [#[id number]] Priority: STAT Class: Hospital Performed Resulting Age ncy: [facility] Test ID: [id number] Reason for Exam: -> Chest Pain Released on: 08/16/2019 9:02 PM [id number] XR CHEST PORT [#[id number]] Priority: STAT Class: Hospital Performed Stand ing Order Information Remaining Occurrences:0/1 Interval:ONE TIME Last released:0 08/16/2019 Released orders: Sat Aug 16, 2019 9:02 PM by: INDIO POLLOCK Reason for Exam -> Chest Pain [id number] XR CHEST PORT [#[id number]] Priority: STAT Class: H ospital Performed Resulting Agency: [facility] Test ID: [id number] Reason for Exam -> Chest Pain Rele ased on: 08/16/2019 9:02 JesusitaMaxwell mcleod MR#: [id number] * Rm: [id number] Ht: 5' 10" Wt: 280 lb Code: Prior Iso:Diagnosis:Allergies: No Known Allergies -------- Current as of: 08/16/19 9618 GI=Given IC=IV Complet ed NB=New Bag --aspirin (ASPIRIN) tablet 325 mg #[id number] Admin Amount: 1 Tab (1 x 325 mg Tab) Ordered Dose: 325 mg Route: Oral Freq: ONCE Start Date: 12/24/13 No administration times (back 96 hours, ahead 96 hours). ------diphenhydrAMINE (BENADRYL) capsule 50 mg #[id number] Admin Amount: 1 Cap (1 x 50 mg Cap) Ordered Dose: 50 mg Route: Ora l Freq: NOW Start Date: 12/24/13 No administration times (back 96 hours, ahe ad 96 hours). ------diazepam (VALIUM) tablet 5 mg #[id number] Admin Amount: 1 Tab (1 x 5 mg Tab) Ordered Dose: 5 mg Route: Oral Freq: ON CE Start Date: 12/24/13 No administration times (back 96 hours, ahead 96 hours). ------lidocaine (XYLOCAINE) 10 mg/mL (1 %) injection 1-30 mL #[id number] Admin Amount: 1-30 mL Ordered Dose: 1-30 mL Route: IntraDERMal Freq: ONCE Start Date: 12/24/13 No administration times (back 96 hours, ahead 96 hours). ------heparin (PF) 2 units/ml in NS infusion 2,000 Units #[id number] Admin Amount: 1,000 mL = 2,000 Units of 2 Units/mL Ordered Dose: 1,000 mL Ro wrangell: Irrigation Freq: ONCE Start Date: 12/24/13 No administration times (back 96 hours, ahead 96 hours). ------heparinized saline 2 units/mL infusion 1,000 Units #[id number] Admin Amount: 500 mL = 1,000 Units of 2 Units/mL Ordered Dose: 500 mL Ro wrangell: IntraarTERial Freq: ONCE Start Date: 12/24/13 No administration times (back 96 hours, ahead 96 hours). ------0.9% sodium chloride infusion #[id number] Ordered Dose: 75 mL/hr Route: IntraVENous Freq: CONTINUOUS Start Date: 12/24/13 Rate: 75 mL/hr Duration: No administration times (back 96 hours, ahead 96 hours). ------ioversol (OPTIRAY) 320 mg iodine/mL contrast injection 1-100 mL #[id number] Admin Amount: 1-100 mL Ordered Dose: 1-100 mL Route: IntraVENous Freq: RAD O NCE Start Date: 12/24/13 No administration times (back 96 hours, ahead 96 hours).Maxwell Bray MR#: [id number] * Rm: [id number]: 5' 10" Wt: 280 lb Co de: Prior Iso:Diagnosis:Allergies: No Known Allergies -------- Current as of: 08/16/192245 GI=Given IC=IV Complet ed NB=New Bag --gadobutrol (GADAVIST) contrast solution 1-10 mL #[id number] Admin Amount: 1-10 mL Ordered Dose: 1-10 mL Route: IntraVENous Freq: RAD O NCE Start Date: 01/13/14 No administration times (back 96 hours, ahead 96 hours). ------sodium chloride (NS) flush 5-10 mL #[id number] Admin Amount: 5-10 mL Ordered Dose: 5-10 mL Route: IntraVENous Freq: RAD ONCE Start Date: 01/13/14 No administration times (back 96 hours, ahead 96 hours). ------sodium chloride (NS) 0.9 % flush #[id number] Ordered Dose: Route: Freq: Start Date: 01/13 No administration times (back 96 hours, ahead 96 hours). ------morphine injection 2 mg #[id number] Admin Amount: 1 mL = 2 mg of 2 mg/mL Ordered Dose: 2 mg Route: IntraVENous Freq: NOW Start Date: 03/13/15 No administration times (back 96 hours, ahe ad 96 hours). ------influenza vaccine (4 yr+)(PF) (FLUCELVAX QUAD) inj ection 0.5*#[id number] Admin Amount: 0.5 mL Ordered Dose: 0.5 mL Route: IntraMUSCular Freq: PRIOR TO DISCHARGE Start Date: 03/30/16 No administration times (back 96 hours, ahead 96 hours). ------oxyCODONE-acetaminophen (PERCOCET) 5-325 mg per tablet 1 Tab #[id number] Admin Amount: 1 Tab Ordered Dose: 1 Tab Route: Oral Freq: NOW Start Date: 09/07/17 No administration times (back 96 hours, ahead 96 hours). ------barium sulfate (READICAT) 2.1 % (w/v), 2.0 % (w /w) oral suspension 9*#[id number] Admin Amount: 900 mL Ordered Dose: 900 mL Route: Oral Delgado q: RAD ONCE Start Date: 10/15/17 No administration times (back 96 hours, ahead 96 hours). ------iopamidol (ISOVUE 300) 61 % contrast injection 100 mL #[id number] Admin Amount: 100 mL Ordered Dose: 100 mL Route: IntraVENous Freq: RAD ONC E Start Date: 10/15/17 No administration times (back 96 hours, ahead 96 hours).Maxwell Bray MR#: [id number] * Rm: [id number]: 5' 10" Wt: 280 lb Code: Prior Iso:Diagnosis:Allergies: No Known Allergies -------- Current as of: 08/16/192245 GI=Given IC=IV Complet ed NB=New Bag --risperiDONE (RisperDAL m-tabs) disintegrating tablet 1 mg #[id number] Admin Amount: 1 Tab (1 x 1 mg Tab) Ordered Dose: 1 mg Route: Oral Freq: ONCE Start Date: 12/24/17 No administration times (back 96 hours, ahead 96 hours). ------ALPRAZolam (XANAX) tablet 2 mg #[id number] Admin Amount: 4 Tab (4 x 0.5 mg Tab) Ordered Dose: 2 mg Route: Ora l Freq: NOW Start Date: 12/24/17 No administration times (back 96 hours, ahe ad 96 hours). ------lamoTRIgine (LaMICtal) tablet 100 mg #[id number] Admin Amount: 1 Tab (1 x 100 mg Tab) Ordered Dose: 100 mg Route: Oral Delgado q: ONCE Start Date: 12/24/17 No administration times (back 96 hours, ahead 96 hours). ------OLANZapine (ZyPREXA zydis) disintegrating tablet 5 mg #[id number] Admin Amount: 1 Tab (1 x 5 mg Tab) Ordered Dose: 5 mg Route: Oral Delgado q: ONCE Start Date: 12/25/17 No administration times (back 96 hours, ahead 96 hours). ------LORazepam (ATIVAN) tablet 2 mg #[id number] Admin Amount: 4 Tab (4 x 0.5 mg Tab) Ordered Dose: 2 mg Route: Ora l Freq: NOW Start Date: 12/25/17 No administration times (back 96 hours, ahe ad 96 hours). ------LORazepam (ATIVAN) injection 1 mg #[id number] Admin Amount: 0.5 mL = 1 mg of 2 mg/mL Ordered Dose: 1 mg Route: Int raVENous Freq: NOW Start Date: 12/25/17 No administration times (back 96 hours, ahe ad 96 hours). ------barium sulfate (EZ PAQUE) 96 % (w/w) contrast suspension 17 6 g #[id number] Admin Amount: 176 g Ordered Dose: 176 g Route: Oral Freq: RAD ONCE Start Date: 08/02/18 No administration times (back 96 hours, ahead 96 hours). ------barium sulfate (EZ PAQUE) 96 % (w/w) contrast s uspension 176 g #[id number] Admin Amount: 176 g Ordered Dose: 176 g Route: Oral Delgado q: RAD ONCE Start Date: 08/02/18 No administration times (back 96 hours, ahead 96 hours).Maxwell Ritter MR#: [id number] * Rm: [id number]: 5' 10" Wt: 280 lb Co de: Prior Iso:Diagnosis:Allergies: No Known Allergies -------- Current as of: 08/16/192245 GI=Given IC=IV Complet ed NB=New Bag --aspirin chewable tablet 162 mg #[id number] Admin Amount: 2 Tab (2 x 81 mg Tab) Ordered Dose: 162 mg Route: Oral Freq: NOW Start Date: 08/10/19 No administration times (back 96 hours, ahead 96 hours). ------famotidine (PF) (PEPCID) 20 mg in 0.9% sodium chloride 10 mL inje cti*#[id number] Admin Amount: 20 mg Ordered Dose: 20 mg Route: IntraVENous Freq: EVERY 12 H OURS Start Date: 08/16/19 Administration times (back 96 hours, ahead 96 hours): 08/16/19: 9G I 08/17/19: 89908/18/19: 89908/19/19: 89908/20/19: 899 2099 ---0.9% sodium chloride infusion 1,000 mL #[id number] Admin Amount: 1,000 mL Ordered Dose: 1,000 mL Route: IntraVENous Freq: ONC E Start Date: 08/16/19 Rate: 1,000 mL/hr Duration: Administration times (back 96 hours, ahead 96 hours): 08/16/19: 2119NB 2245IC -----methylPREDNISolone (PF) (Solu-MEDROL) injection 125 mg #[id number] Admin Amount: 2 mL = 125 mg of 125 mg/2 mL Ordered Dose: 125 mg Route: Int raVENous Freq: NOW Start Date: 08/16/19 Administration times (back 96 hours, ahe ad 96 hours): 08/16/19: 2118GI -----aspirin chewable tablet 162 mg #[id number] Admin Amount: 2 Tab (2 x 81 [...] mg by mouth three (3) times daily.Dispense [place] unt:Start Date:End Date:Doc. Provider: Suzette, Phys, MDpredniSONE [...] With:Ritika Canas M DDetails:In 2 daysComments:Contact Info:[phone]-up With:[facility] DEPARTMENTDetails:Comments:As needed, If symptoms worsenContact Info:[address] [facility] [phone] Name Value Range Interpretation Code Description Data Melani rce(s) Supporting Document(s ) ID Date Data Source [id number] 08/16/2019 10:45:45 PM [facility] IV site clean/dry/intact, gauze dressing applied. Pt received written and verbaldischarge instructions. Verbalize d understanding of same. Ambulated out of EDwith steady gait and in no distress. Name Value Range Interpretation Code Description Data Melani rce(s) Supporting Document(s ) ID Date Data Source [id number] 08/16/2019 09:58:14 PM [facility] Name Value Range Interpretation Description Data Sup porting Code Source(s) Document(s ) [place] 0.21 0.6-1.2 Below low normal [facility] - Good [Moles/volu MMOL/L [facility] mo] in Hospital Serum or Plasma ID Date Data Source [id number] 08/16/2019 09:52:19 PM [facility] Value Range Interpretation Code Description Data Melani rce(s) Supporting Document(s ) Fibrin <500 [facility] - [facility] D-dimer FEU [facility] [Mass/volume] Hospital in Platelet poor plasma (NOTE)Combination of a D-Dimer result wi thin the reference range and a lowclinical pretest probability has good negative pr edictive value fordeep venous thrombosis.If results are utilized for VTE evaluation, <500 ng/ml is consideredto be negative. ID Date Data Source [id number] 08/16/2019 09:44:39 PM EST [facility] Value Range Interpretation Description Data Sup porting Code Source(s) Document(s ) Troponin 0.00-0.05 [facility] - Good I.cardiac [facility] [Mass/volume Hospital ] in Serum or Plasma [...] to 1.50 ng/mL ID Date Data Source [id number] 08/16/2019 09:44:39 PM [facility] Value Range Interpretation Description Data Sup porting Code Source(s) Document(s ) Sodium 138 136-145 [facility] - Good [Moles/volume] mmol/L [facility] in Serum or Hospital Plasma Potassium 3.4 3.5-5.1 Below low normal [facility] - Good [Moles/volume] mmol/L [facility] in Serum or Hospital Plasma Chloride 108 98-107 Above high normal [facility] - Good [Moles/volume] mmol/L [facility] in Serum or Hospital Plasma Carbon 20 21-32 Below low normal [facility] - Good dioxide, total mmol/L [facility] [Moles/volume] Hospital in Serum or Plasma Anion gap in 14 10-20 [facility] - Good Serum or mmol/L [facility] Plasma Hospital Glucose 105 74-106 [facility] - Good [Mass/volume] mg/dL [facility] in Serum or Hospital Plasma Urea nitrogen 20 mg/dL 7-18 Above high normal [facility] - Good [Mass/volume] [facility] in Serum or Hospital Plasma Creatinine 0.90 0.70-1.3 [facility] - Good [Mass/volume] mg/dL 0 [facility] in Serum or Hospital Plasma Glomerular >60 [facility] - Good filtration [facility] rate/1.73 sq M Hospital predicted among blacks [Volume Rate/Area] in Serum or Plasma by Creatinine-bas ed formula (MDRD) Glomerular >60 [facility] - Good filtration [facility] rate/1.73 sq M Hospital predicted among non-blacks [Volume Rate/Area] in Serum or Plasma by Creatinine-bas ed formula (MDRD) (NOTE)Estimated GFR is calculated using the Modification of Diet in RenalDisease (MDRD) Study equation, reported for both Americans(GFRAA) and non- Americans (GFRNA), and normalized to 1.7 3u4wntc surface area. The physician must decide which [...] normal [facility] - Good Serum or Plasma [facility] Hosp ital Bilirubin.total 0.3 mg/dL 0.2-1.0 [facility] - Good [Mass/volume] in Serum or [facility] Plasma Alanine aminotransferase 37 U/L 13-61 [facility] - Good [Enzymatic activity/volume] [facility] in Serum or Plasma Aspartate aminotransferase 22 U/L 15-37 [facility] - Good [Enzymatic activity/volume] [facility] in Serum or Plasma by With P-5'-P Alkaline phosphatase 98 U/L 45-117 [facility] - G ood [Enzymatic activity/volume] [facility] in Serum or Plasma Protein [Mass/volume] in 7.0 g/dL 6.4-8.2 [facility] - Good Serum or Plasma [facility] ital Albumin [Mass/volume] in 3.7 g/dL 3.5-4.7 [facility] - Good Serum or Plasma by [facility] ospital Bromocresol purple (BCP) dye binding method Globulin [Mass/volume] in 3.3 g/dL 1.7-4.7 [facility] - Good Serum by calculation [facility] Albumin/Globulin [Mass 1.1 0.7-2.8 [facility] - Good Ratio] in Serum or Plasma [facility] ID Date Data Source [id number] 08/16/2019 09:44:39 PM EST [facility] - Good [facility] Name Value Range Interpretation Description Data Sup porting Code Source(s) Document(s ) Magnesium 2.3 mg/dL 1.6-2.6 [facility] - Good [Mass/volume] [facility] in Serum or Hospital Plasma ID Date Data Source [id number] 08/16/2019 09:23:23 PM EST [facility] - Good [facility] Name Value Range Interpretation Description Data Sup porting Code Source(s) Document(s ) Leukocytes 7.6 K/uL 4.8-10.6 [facility] - [#/volume] in Good Blood by [facility] Erythrocytes 4.97 4.70-6.0 [facility] - [#/volume] in M/uL 0 Good Blood by [facility] Hemoglobin 15.2 14.0-18. [facility] - [Mass/volume] in g/dL 0 Good Blood [facility] Hematocrit 45.0 % 42.0-52. [facility] - [Volume 0 Good Fraction] of [facility] Blood by [facility] Automated count Erythrocyte mean 90.5 FL 81.0-94. [facility] - corpuscular 0 Good volume [Entitic [facility] volume] by Hospital Automated count Erythrocyte mean 30.6 PG 27.0-35. [facility] - corpuscular 0 Good hemoglobin [facility] [Entitic mass] Hospital by Automated count Erythrocyte mean 33.8 30.7-37. [facility] - corpuscular g/dL 3 Good hemoglobin [facility] concentration Hospital [Mass/volume] by Automated count Erythrocyte 13.0 % 11.5-14. [facility] - distribution 0 Good width [Ratio] by [facility] Automated count Hospital Platelets 183 K/uL 130-400 [facility] - [#/volume] in Good Blood by [facility] Automated count Hospital Platelet mean 8.5 FL 9.2-11.8 Below low normal [facility] - volume [Entitic Good volume] in Blood [facility] by Automated Hospital count Nucleated 0.0 PER 0 [facility] - erythrocytes/100 100 WBC Good leukocytes [facility] [Ratio] in Blood [facility] Nucleated 0.00 0.0-0.01 [facility] - erythrocytes K/uL Good [#/volume] in [facility] Segmented 68 % 48.0-72. [facility] - neutrophils/100 0 Good leukocytes in [facility] Lymphocytes/100 19 % 18.0-40. [facility] - leukocytes in 0 [facility] Blood [facility] Monocytes/100 7 % 2.0-12.0 [facility] - leukocytes in [facility] Blood [facility] Eosinophils/100 5 % 0.0-7.0 [facility] - leukocytes in [facility] Blood [facility] Basophils/100 1 % 0.0-3.0 [facility] - leukocytes in [facility] Blood [facility] Immature 1 % 0-0.5 Above high normal [facility] - granulocytes/100 Good leukocytes in [facility] Automated count Segmented 5.2 K/UL 2.3-7.6 [facility] - neutrophils Good [#/volume] in [facility] Lymphocytes 1.5 K/UL 0.9-4.2 [facility] - [#/volume] in [facility] Blood [facility] Monocytes 0.6 K/UL 0.1-1.7 [facility] - [#/volume] in [facility] Blood [facility] Eosinophils 0.3 K/UL 0.0-1.0 [facility] - [#/volume] in [facility] Blood [facility] Basophils 0.0 K/UL 0.0-0.4 [facility] - [#/volume] in [facility] Blood [facility] Immature 0.0 K/UL 0.0-0.17 [facility] - granulocytes Good [#/volume] in [facility] Blood by Hospital Automated count Differential [facility] - cell count [facility] method - Blood [facility] ID Date Data Source [id number] 08/16/2019 08:50:30 PM [facility] sudden onset of difficulty breathing and rash while eating leticia food, rashacross face and chest slightly raised, no vesicles, denies any chest pain deniesany itching at this time. Went to urgent care, recei nataliia benadryl 50 mg IMfrom EMS. Name Value Range Interpretation Code Description Data [facility] rce(s) Supporting Document(s ) ID Date Data Source [id number] 08/11/2019 08:03:02 AM [facility] History:Chest pain. Shortness of breath. FINDINGS:A [...] Name Value Range Interpretation Code Description [facility] ) ID Date Data Source [id number] 08/11/2019 04:22:14 AM [facility] The history is provided by the patient a nd the spouse.11:36 PM: Maxwell Bray is a 49 y.o. male with psychiatric history ,m orbidobesity who presents to the ED c/o chest pain and shortness of breath onset 7:30 PM today while eating dinner. [facility] Patient denies cough, fever, or any other constitutional symptoms. Patientdenies a history of diabetes, hypertension, or tobacco use. states patienttakes an tidepressants regularly including Vraylar and clonazepam. No othercomplaints at this t lydia.Dr. Canas (PCP)Past Medical History:Diagnosis Date Other unknown an d unspecified cause of morbidity or mortality cardiac cath at [facility] approx 6-8 months ag o Other unknown [...] QTC Calculation (Bezet) 435 ms Calculated P Center 55 degrees Calculated R Center 34 degrees Calculated T Center 9 degrees Diagnosis S inus tachycardiaOtherwise normal [...] Time: 08/11/19 12:01 AMResult Value Ref Range [place] level <0.20 (L) 0.6 - 1.2 MMOL/LLACTIC [...] 36N*ENCOUNTER 08/11/2019 01:42:54 AM EST [facility] - [facility] [id number] [facility] [address] [facility] [address] [phone]/ [place] mcleodMaxwell (Male) [id number] JOSE 2 ED Dispo:DISCHARGE Chief Complaint: Chest Pain, Shortne ss of Breath Diagnosis: Dyspnea, unspecified type [] Current Providers: Atte nding: Javier Quezada Primary Nurse: ELIS WilsonN: [id number] Print [employer] p [id number] - [facility] MrIDRN: [id number] [employer] [phone] - Bs [facility] Age SexDOB 1970 AGE 49 SEX Male Primary Care Provider: Ritika Canas MD Phone: [phone]: (No Known Allergies)Date Reviewed: 08/10/2019Reviewed by: Chiquis Christianson CompleteED Provider Notes: No notes of this type exist for this encounter.ED Orders [id number] E KG, 12 LEAD, INITIAL [#[id number]] Priority: STAT Class: Hospital Performed Stand ing Order Information Remaining Occurrences:0/1 Interval:ONE TIME Last released:0 08/10/2019 Released orders: [place] Aug 10, 2019 10:17 PM by: CHIQUIS CHRISTIANSON Reason for Exam: -> CP SOB [id number] EKG, 12 LEAD, INITIAL [#[id number]] Priority: STAT Class: Hospital Performed Specimen Collected: 08/10/2019 10:14 PM Resulting Agency: [facility] Test ID: [id number] Reason for Exam: -> CP SOB Released on: 08/10/2019 10:17 PM [id number] EKG, 12 LE AD, INITIAL [#[id number]] Priority: STAT Class: Hospital Performed Standing Or mariano Information Remaining Occurrences:0/1 Interval:ONE TIME Last released:0 08/10/2019 Released orders: [place] Aug 10, 2019 11:51 PM by: MAYANK QUEZADA V Reason fo r Exam: -> Chest Pain [id number] EKG, 12 LEAD, INITIAL [#[id number]] Priority: STAT C lass: Hospital Performed Resulting Agency: [facility] Test ID: [id number] Reason for Exam: -> Chest P ain Released on: 08/10/2019 11:51 PM [id number] SOURCING SPECIALIST - ED ONLY [#[id number]] Priority: STAT Class: Hospital Performed Standing Order Information Remaining Occurre nces:0/1 Interval:Continuous Last released:08/10/2019 Released orders : [place] Aug 10, 2019 11:51 PM by: MAYANK QUEZADA V Type: -> Bedside [id number] PULSE OXIMETR Y CONTINUOUS [#[id number]] Priority: STAT Class: Hospital Performed Standing Or mariano Information Remaining Occurrences:0/1 Interval:CONTINUOUS Last released :08/10/2019 Released orders: [place] Aug 10, 2019 11:51 PM by: MAYANK QUEZADA V [id number] PULSE OXIMETRY SPOT CHECK [#[id number]] Priority: STAT Class: Hospital Performe d Standing Order Information Remaining Occurrences:0/1 Interval:ONE TIME Last r eleased:08/10/2019 Released orders: [place] Aug 10, 2019 11:51 PM by: MAYAKN QUEZADA V NU [id number] OBTAIN OLD EKG [#[id number]] Priority: Routine Class: Hospital Perfo rmed Standing Order Information Remaining Occurrences:0/1 Interval:ONE TI ME Last released:08/10/2019 Released orders: [place]ella Aug 10, 2019 11:51 PM by: MAYANK QUEZADA V [id number] SOURCING SPECIALIST - ED ONLY [#[id number]] Priority: STAT Class: H ospital Performed Type: -> Bedside Released on: 08/10/2019 11:51 PM [id number] PULSE OXIM ETRY CONTINUOUS [#[id number]] Priority: STAT Class: Hospital Performed Released on : 08/10/2019 11:51 PM [id number] PULSE OXIMETRY SPOT CHECK [#[id number]] Priority: STAT C lass: Hospital Performed Released on: 08/10/2019 11:51 PM [id number] OBTAIN OLD EKG [#[id number]] Priority: STAT Class: Hospital Performed Released on: 08/10/2019 11: 51 PM [id number] RT--OXYGEN CANNULA [#[id number]] Priority: STAT Class: H ospital Performed Standing Order Information Remaining Occurrences:0/1 Interval:CONTIN UOUS Last released:08/10/2019 Released orders: Arabella Aug 10, 2019 11:51 PM by: MAYANK PRADO V Comment:TITRATE UP TO 4 L / MINUTE TO MAINTAIN O2 SATS GREATER THAN OR EQUAL TO 94% LPM -> 2 Indications for O2? -> CHEST PAIN [id number] RT--OXYGEN CANNULA [#[id number]] Priority: STAT Class: Hospital Performed Comment:TITRATE UP TO 4 L / MINUTE TO MAINTAIN O2 SATS GREATER THAN OR EQUAL TO 94% LPM -> 2 Indications fo r O2? -> CHEST PAIN Released on: 08/10/2019 11:51 PM [id number] DIET NPO [#[id number]] Priority: STAT Class: Hospital Performed Standing Order Information Remaining Occurrences:0/1 Interval:DIET EFFECTIVE NOW Last released:08/10 Released orders: Arabella Aug 10, 2019 11:51 PM by: MAYANK QUEZADA V NPO options: - > With Meds [id number] DIET NPO [#[id number]] Priority: STAT Class: H ospital Performed NPO options: -> With Meds Released on: 08/10/2019 11:51 PM [id number] SALINE LOCK IV [#[id number]] Priority: STAT Class: Hospital Performed Standing O rder Information Remaining Occurrences:0/1 Interval:ONE TIME Last released:0 08/10/2019 Released orders: Sun Aug 10, 2019 11:51 PM by: MAYANK QUEZADA V [id number] SALI NE LOCK IV [#[id number]] Priority: STAT Class: Hospital Performed Relea sed on: 08/10/2019 11:51 PM [id number] METABOLIC PANEL, COMPREHENSIVE [#[id number]] Bridgette ority: STAT Class: ER Collect Standing Order Information Remaining Occurrences:0/1 In terval:ONE TIME Last released:08/10/2019 Released orders: Willet Aug 10, 2019 11:51 PM by: MAYANK QUEZADA V [id number] CBC WITH AUTOMATED DIFF [#[id number]] Priority: STAT Class: ER Collect Standing Order Information Remaining Occurrences:0/1 Inter haile:ONE TIME Last released:08/10/2019 Released orders: Willet Aug 10, 2019 11:51 PM by: MAYANK QUEZADA V [id number] TROPONIN I [#[id number]] Priority: STAT Class: ER Collect Standing Order Information Remaining Occurrences:0/1 Inter haile:ONE TIME Last released:08/10/2019 Released orders: Willet Aug 10, 2019 11:51 PM by: MAYANK QUEZADA V [id number] MAGNESIUM [#[id number]] Priority: STAT Class: ER Collect Standing Order Information Remaining Occurrences:0/1 Inter haile:ONE TIME Last released:08/10/2019 Released orders: Willet Aug 10, 2019 11:51 PM by: MAYANK QUEZADA V [id number] BNP [#[id number]] Priority: STAT Class: ER Collect Standing Order Information Remaining Occurrences:0/1 Inter haile:ONE TIME Last released:08/10/2019 Released orders: Willet Aug 10, 2019 11:51 PM by: MAYANK QUEZADA V [id number] D DIMER [#[id number]] Priority: STAT Class: ER Collect Standing Order Information Remaining Occurrences:0/1 Inter haile:ONE TIME Last released:08/10/2019 Released orders: Willet Aug 10, 2019 11:51 PM by: MAYANK QUEZADA V [id number] PROTHROMBIN TIME + INR [#[id number]] Priority: STAT Class: ER Collect Standing Order Information Remaining Occurrences:0/1 Inter haile:ONE TIME Last released:08/10/2019 Released orders: Sun Aug 10, 2019 11:51 PM by: MAYANK QUEZADA V [id number] PTT [#[id number]] Priority: STAT Class: ER Collect Specimen Source: Blood Standing Order Information Remaining Occurrences:0 /1 Interval:ONE TIME Last released:08/10/2019 Released orders: Sun Aug 10, 2019 11:51 PM by: MAYANK QUEZADA V [id number] LITHIUM [#[id number]] Pr iority: STAT Class: ER Collect Standing Order Information Remaining Occurrences:0/1 I nterval:ONE TIME Last released:08/10/2019 Released orders: Willet Aug 10, 2019 11:51 PM by: MAYANK QUEZADA V [id number] METABOLIC PANEL, COMPREHENSIVE [#[id number]] Bridgette ority: STAT Class: ER Collect Specimen Source: Plasma Specimen Collected: 08/11/2019 12:01 AM Resulting Agency: [facility] Test ID: MPL Released on: 08/10/2019 11:51 PM [id number] CBC WITH AUTOMATED DIFF [#[id number]] Priority: STAT Class: E R Collect Specimen Source: Whole Blood Specimen Collected: 08/11/2019 12:01 AM Resulting Agency: [facility] Test ID: CBCXA Released on: 08/10/2019 11:51 PM [id number] TROPON IN I [#[id number]] Priority: STAT Class: ER Collect Specimen Source: Gerson sma Specimen Collected: 08/11/2019 12:01 AM Resulting Agency: [facility] RY Test ID: TROIP Released on: 08/10/2019 11:51 PM [id number] MAGNESIUM [#[id number]] Priority: STAT Class: ER Collect Specimen Source: Plasma Specimen Collec hyun: 08/11/2019 12:01 AM Resulting Agency: [facility] Test ID: MGPL Re leased on: 08/10/2019 11:51 PM [id number] BNP [#[id number]] Priority : STAT Class: ER Collect Specimen Source: Plasma Specimen Collected: 08/11/2019 12:01 AM Resultin g Agency: [facility] Test ID: BNPPB Released on: 08/10/2019 11:51 PM [id number] D DIMER [#[id number]] Priority: STAT Class: ER Collect Speci men Source: Plasma Specimen Collected: 08/11/2019 12:01 AM Resulting Agency: [facility] Test ID: DDIME Released on: 08/10/2019 11:51 PM [id number] PROTHROMBIN TIME + INR [#[id number]] Priority: STAT Class: ER Collect Specimen Source: Plasma Specimen Collec hyun: 08/11/2019 12:01 AM Resulting Agency: [facility] Test ID: APTHR R eleased on: 08/10/2019 11:51 PM [id number] PTT [#[id number]] Priorit y: STAT Class: ER Collect Specimen Source: Plasma Specimen Collected: 08/11/2019 12:01 AM Resultin g Agency: [facility] Test ID: APTT Released on: 08/10/2019 11:51 PM [id number] LITHIUM [#[id number]] Priority: STAT Class: ER Collect Speci men Source: Serum Specimen Collected: 08/11/2019 12:01 AM Resulting Agency: [facility] Test ID: LI Released on: 08/10/2019 11:51 PM [id number] LACTIC ACID [#[id number]] Priority: STAT Class: ER Collect Standing Order Information Remainin g Occurrences:0/1 Interval:ONE TIME Last released:08/11/2019 Released orders : Mon Aug 11, 2019 12:15 AM by: KATI WILSON [id number] LACTIC ACID [#[id number]] Priority: STAT Class: ER Collect Specimen Source: Plasma Specimen Collec hyun: 08/11/2019 12:01 AM Resulting Agency: [facility] Test ID: LAC Rel eased on: 08/11/2019 12:15 AM ASPIRIN 81 MG CHEWABLE TAB [#[id number]] Priority: STAT Class: Normal [id number] XR CHEST PORT [#[id number]] Priority: STAT Cl ass: Hospital Performed Standing Order Information Remaining Occurrences:0/1 Inter haile:ONE TIME Last released:08/10/2019 Released orders: Sun Aug 10, 2019 11:51 PM by: MAYANK QUEZADA V Reason for Exam -> Chest Pain [id number] XR CHEST PORT [#[id number]] Priority: STAT Class: Hospital Performed Resulting Agency: [place] [facility] Test ID: [id number] Reason for Exam -> Chest Pain Released on: 08/10/2019 11:51 PM [id number] INFLUENZA A & B AG (RAPID TEST) [#[id number]] Priority: STAT Class: ER Collect Sta nding Order Information Remaining Occurrences:0/1 Interval:ONE TIME Last released: 08/10/2019 Released orders: Sun Aug 10, 2019 11:51 PM by: MAYANK QUEZADA V [id number] INFL UENZA A & B AG (RAPID TEST) [#[id number]] Priority: STAT Class: ER Collect Specimen Source : Nasal washing Specimen Collected: 08/11/2019 12:18 AM Resulting Agency: [facility] Test ID: INFLUA Released on: 08/10/2019 11:51 PM [id number] CULTURE, BLOOD [#[id number]] Priority: STAT Class: ER Collect Specimen Source: Blood Standing Order Information Remaining Occurrences:0/1 Interval:ONE TIME Last released:0 08/11/2019 Released orders: SunAug 11, 2019 12:15 AM by: KATI WILSON [id number] CULTU RE, BLOOD [#[id number]] Priority: STAT Class: ER Collect Specimen Source : Blood Standing Order Information Remaining Occurrences:0/1 Interval:ONE TI ME Last released:08/11/2019 Released orders: SunAug 11, 2019 12:15 AM by: KATI WILSON [id number] CULTURE, BLOOD [#[id number]] Priority: STAT Class: E R Collect Specimen Source: Blood Specimen Collected: 08/11/2019 12:33 AM Resulting Agency: [facility] Test ID: HBCS Released on: 08/11/2019 12:15 AM [id number] CULTUR E, BLOOD [#[id number]] Priority: STAT Class: ER Collect Specimen Source: Blo od Specimen Collected: 08/11/2019 12:43 AM Resulting Agency: [facility] Test ID: HBCS Released on: 08/11/2019 12:15 AMMaxwell Bray MR#: [id number] Acct#: [id number]* Rm: [id number]: 5' 10" Wt: 280 lb Code: Prior Iso:Diagnosis:Allergies: No Kno wn Allergies -------- Current as of: 08/11/19 0142 GI=Given -------aspirin (ASPIRIN) tablet 325 mg #[id number] Admin Amount: 1 Tab (1 x 325 mg Tab) Ordered Dose: 325 mg Route: Oral Freq: ONCE Start Date: 12/24/13 No administration times (b ack 96 hours, ahead 96 hours). ------diphenhydrAMINE (BENADRYL) capsule 50 mg #[id number] Admin Amount: 1 Cap (1 x 50 mg Cap) Ordered Dose: 50 mg Ro wrangell: Oral Freq: NOW Start Date: 12/24/13 No administration times (back 96 hours, ahead 96 hours). ------diazepam (VALIUM) tablet 5 mg #[id number] Admin Amount: 1 Tab (1 x 5 mg Tab) Ordered Dose: 5 mg Route: Oral Freq: ONCE Start Date: 12/24/13 No administration times (back 96 hours, ahead 96 hours). ------lidocaine (XYLOCAINE) 10 mg/mL (1 %) injection 1-3 0 mL #[id number] Admin Amount: 1-30 mL Ordered Dose: 1-30 mL Route: Int raDERMal Freq: ONCE Start Date: 12/24/13 No administration times (back 96 hours, ahead 96 hours). ------heparin (PF) 2 units/ml in NS infusion 2,000 Units #[id number] Admin Amount: 1,000 mL = 2,000 Units of 2 Units/mL Ordered Dose: 1,000 mL Route: Irrigation Freq: ONCE Start Date: 12/24/13 No administration times (back 96 hours, ahead 96 hours). ------heparinized saline 2 units/mL infusion 1,000 Units #[id number] Admin Amount: 500 mL = 1,000 Units of 2 Units/mL Ordered Dose: 500 m L Route: IntraarTERial Freq: ONCE Start Date: 12/24/13 No admini stration times (back 96 hours, ahead 96 hours). ------0.9% sodium chloride infusion #[id number] Ordered Dose: 75 mL/hr Route: IntraVENous Freq: CONTINUOUS Start Date: 12/24/13 Rate: 75 mL/hr Duration: No administration ti mes (back 96 hours, ahead 96 hours). ------ioversol (OPTIRAY) 320 mg iodine/mL contrast inje ction 1-100 mL #[id number] Admin Amount: 1-100 mL Ordered Dose: 1-100 mL Ro wrangell: IntraVENous Freq: RAD ONCE Start Date: 12/24/13 No administration times (back 96 hours, ahead 96 hours).Maxwell Bray MR#: [id number] * Rm: [id number] Ht: 5' 10" Wt: 280 lb Code: Prior Iso:Diagnosis:Allergies: No Known Allergies -------- Current as of: 08/11/19 0142 GI=Given -------gadobutrol (GADAVIST) contrast solution 1-10 mL #[id number] Admin Amount: 1-10 mL Ordered Dose: 1-10 mL Route: Int raVENous Freq: RAD ONCE Start Date: 01/13/14 No administration times (back 96 hours, ahead 96 hours). ------sodium chloride (NS) flush 5-10 mL #[id number] Admin Amount: 5-10 mL Ordered Dose: 5-10 mL Route: IntraVENo us Freq: RAD ONCE Start Date: 01/13/14 No administration times (back 96 hours, ahe ad 96 hours). ------sodium chloride (NS) 0.9 % flush #[id number] Ordered Dose: Route: Freq: Start Date: 01/13/14 No administration times (back 96 hours, ahead 96 hours). ------morphine injection 2 mg #[id number] Admin Amount: 1 mL = 2 mg of 2 mg/mL Ordered Dose: 2 mg Route: IntraVENous Freq: NOW Start Date: 03/13/15 No administration t imes (back 96 hours, ahead 96 hours). ------influenza vaccine (4 yr+)(PF) (FLUCELVAX Q UAD) injection 0.5*#[id number] Admin Amount: 0.5 mL Ordered Dose: 0.5 mL Route: Int raMUSCular Freq: PRIOR TO DISCHARGE Start Date: 03/30/16 No administration times (back 9 6 hours, ahead 96 hours). ------oxyCODONE-acetam inophen (PERCOCET) 5-325 mg per tablet 1 Tab #[id number] Admin Amount: 1 Tab Ordered Dose: 1 Tab Route: Oral Freq: NOW Start Date: 09/07/17 No administration times (back 96 hours, [facility] ad 96 hours). ------barium sulfate (READICAT) 2.1 % (w/v), 2.0 % (w/w) oral suspension 9*#[id number] Admin Amount: 900 mL Ordered Dose: 900 mL Route: Oral Delgado q: RAD ONCE Start Date: 10/15/17 No administration times (back 96 hours, e ad 96 hours). ------iopamidol (ISOVUE 300) 61 % contrast injection 100 mL #[id number] Admin Amount: 100 mL Ordered Dose: 100 mL Route: Int raVENous Freq: RAD ONCE Start Date: 10/15/17 No administration times (back 96 hours, ahead 96 hours).Maxwell Bray MR#: [id number] * Rm: [id number]: 5' 1 0" Wt: 280 lb Code: Prior Iso:Diagnosis:Allergies: No Known Allergies -------- Current as of: 08/11/19141 GI=Given -------risperiDONE (RisperDAL m-tabs) disintegrating tablet 1 mg #[id number] Admin Amount: 1 Tab (1 x 1 mg Tab) Ordered Dose: 1 mg Route: Oral Freq: ONCE Start Date: 12/24/17 No administration times (back 96 hours, ahead 96 hours). ------ALPRAZolam (XANAX) tablet 2 mg #[id number] Admin Amount: 4 Tab (4 x 0.5 mg Tab) Ordered Dose: 2 mg Route: Oral Freq: NOW Start Date: 12/24/17 No administration times (back 96 hours, ahead 96 hours). ------lamoTRIgine (LaMICtal) tablet 100 mg #[id number] Admin Amount: 1 Tab (1 x 100 mg Tab) Ordered Dose: 100 mg Route: Oral Freq: ONCE Start Date: 12/24/17 No administration times (back 96 hours, ahead 96 hours). ------OLANZapine (ZyPREXA zydis) disintegrating tablet 5 mg #[id number] Admin Amount: 1 Tab (1 x 5 mg Tab) Ordered Dose: 5 mg Route: Oral Freq: ONCE Start Date: 12/25/17 No administration times (back 96 hours, ahead 96 hours). ------LORazepam (ATIVAN) tablet 2 mg #[id number] Admin Amount: 4 Tab (4 x 0.5 mg Tab) Ordered Dose: 2 mg Route: Oral Freq: NOW Start Date: 12/25/17 No administration times (back 96 hours, ahead 96 hours). ------LORazepam (ATIVAN) injection 1 mg #[id number] Admin Amount: 0.5 mL = 1 mg of 2 mg/mL Ordered Dose: 1 mg Route: IntraVENous Freq: NOW Start Date: 12/25/17 No administration ti mes (back 96 hours, ahead 96 hours). ------barium sulfate (EZ PAQUE) 96 % (w/w) contrast suspensio n 176 g #[id number] Admin Amount: 176 g Ordered Dose: 176 g Route: Oral Delgado q: RAD ONCE Start Date: 08/02/18 No administration times (back 96 hours, e ad 96 hours). ------barium sulfate (EZ PAQUE) 96 % (w/w) contrast suspensio n 176 g #[id number] Admin Amount: 176 g Ordered Dose: 176 g Route: Oral Delgado q: RAD ONCE Start Date: 08/02/18 No administration times (back 96 hours, e ad 96 hours).Maxwell Bray MR#: [id number] * Rm: [id number]: 5' 10" Wt: 280 lb Code: Prior Iso:Diagnosis:Allergies: No Known Allergies -------- Current as of: 08/11/19 0142 GI=Given -------aspirin chewable tablet 162 mg #[id number] Admin Amount: 2 Tab (2 x 81 [...] in 1 dayComments:Contact Info:[address] [id number] With:Detail s:Comments:As needed, If symptoms worsenContact Info: Name Value Range Interpretation Code Description Data Melani rce(s) Supporting Document(s ) ID Date Data Source [id number] 08/11/2019 01:40:37 AM EST [facility] I have reviewed discharge instructions w ith the patient and spouse. The patientand spouse verbalized understanding.\\ Name Value Range Interpretation Code Description Data Melani rce(s) Supporting Document(s ) ID Date Data Source [id number] 08/16/2019 06:35:29 AM EST [facility] Name Value Range Interpretation Description Data Sup porting Code Source(s) Document(s ) Service comment [facility] Bacteria [facility] - Good identified in [facility] Hospital specimen by Culture ID Date Data Source [id number] 08/16/2019 06:35:28 AM EST [facility] Name Value Range Interpretation Description Data Sup porting Code Source(s) Document(s ) Service comment [facility] Bacteria [facility] - Good identified in [facility] Hospital specimen by Culture ID Date Data Source [id number] 08/11/2019 12:56:01 AM EST [facility] Name Value Range Interpretation Description Data Sup porting Code Source(s) Document(s ) Influenza virus NEG [facility] A Ag [Presence] [facility] in [facility] by Immunoassay Influenza virus NEG [facility] - Good B Ag [Presence] [facility] in [facility] by Immunoassay IMMUNOCHROMATOGRAPHIC MEMBRANE ASSAYResu lt: Negative for Influenza A and BNote: A negative result does not exclude an infl uenza virus infection, including H1N1. If more conclusive testing is desired, foll ow-up confirmatory testing is warranted. Specimen source [Identifier] of Unspecified [facility] specimen ID Date Data Source [id number] 08/11/2019 01:35:58 AM EST [facility] Name Value Range Interpretation Description Data Sup porting Code Source(s) Document(s ) Prothrombin 9.6 sec 9.4-11.1 [facility] - [facility] time (PT) [facility] INR in 0.9 0.8-1.2 [facility] - Good Platelet poor [facility] plasma by Hospital Coagulation assay ID Date Data Source [id number] 08/11/2019 01:35:58 AM EST [facility] Name Value Range Interpretation Description Data Sup porting Code Source(s) Document(s ) aPTT in 23.1 SEC 21.0-28. [facility] - Good Platelet poor 0 [facility] plasma by Hospital Coagulation assay Therapeutic Range = 42.0-60.0 secs ID Date Data Source [id number] 08/11/2019 01:30:36 AM EST [facility] Name Value Range Interpretation Description Data Sup porting Code Source(s) Document(s ) Natriuretic 19 pg/mL 0-100 [facility] - Good peptide B [facility] [Mass/volume] [facility] in Serum or Plasma ID Date Data Source [id number] 08/11/2019 01:25:10 AM EST [facility] Name Value Range Interpretation Code Description Data Supporting Source(s) Document(s ) [place] 0.6-1.2 Below low normal [facility] - Good [Moles/volum [facility]ism e] in Serum Hospital or Plasma ID Date Data Source [id number] 08/11/2019 01:20:56 AM EST [facility] Value Range Interpretation Code Description Data Melani rce(s) Supporting Document(s ) [facility] D-dimer FEU [facility] [Mass/volume] [facility] in Platelet poor plasma (NOTE)Combination of a D-Dimer result wi thin the reference range and a lowclinical pretest probability has good negative pr edictive value fordeep venous thrombosis.If results are utilized for VTE evaluation, <500 ng/ml is consideredto be negative. ID Date Data Source [id number] 08/11/2019 01:09:42 AM EST [facility] Value Range Interpretation Description Data Sup porting Code Source(s) Document(s ) Lactate 1.7 0.4-2.0 [facility] - Good [Moles/volu MMOL/L [facility]] in Hospital Serum or Plasma ID Date Data Source [id number] 08/11/2019 01:09:42 AM [facility] Value Range Interpretation Description Data Sup porting Code Source(s) Document(s ) Troponin 0.00-0.05 [facility] - Good I.cardiac [facility] [Mass/volume Hospital ] in Serum or Plasma [...] to 1.50 ng/mL ID Date Data Source [id number] 08/11/2019 01:09:42 AM EST [facility] - Good [facility] Hospital Name Value Range Interpretation Description Data Sup porting Code Source(s) Document(s ) Sodium 140 136-145 [facility] - Good [Moles/volume] mmol/L [facility] in Serum or Hospital Plasma Potassium 3.9 3.5-5.1 [facility] - Good [Moles/volume] mmol/L [facility] in Serum or Hospital Plasma Chloride 113 98-107 Above high normal [facility] - Good [Moles/volume] mmol/L [facility] in Serum or Hospital Plasma Carbon 21 21-32 [facility] - Good dioxide, total mmol/L [facility] [Moles/volume] Hospital in Serum or Plasma Anion gap in 10 10-20 [facility] - Good Serum or mmol/L [facility] Plasma Hospital Glucose 90 mg/dL 74-106 [facility] - Good [Mass/volume] [facility] in Serum or Hospital Plasma Urea nitrogen 18 mg/dL 7-18 [facility] - Good [Mass/volume] [facility] in Serum or Hospital Plasma Creatinine 0.78 0.70-1.3 [facility] - Good [Mass/volume] mg/dL 0 [facility] in Serum or Hospital Plasma Glomerular >60 [facility] - Good filtration [facility] rate/1.73 sq M Hospital predicted among blacks [Volume Rate/Area] in Serum or Plasma by Creatinine-bas ed formula (MDRD) Glomerular >60 [facility] - Good filtration [facility] rate/1.73 sq M Hospital predicted among non-blacks [Volume Rate/Area] in Serum or Plasma by Creatinine-bas ed formula (MDRD) (NOTE)Estimated GFR is calculated using the Modification of Diet in RenalDisease (MDRD) Study equation, reported for both Americans(GFRAA) and non- Americans (GFRNA), and normalized to 1.7 0q2xlyn surface area. The physician must decide which [...] normal [facility] - Good Serum or Plasma [facility] ital Bilirubin.total 0.5 mg/dL 0.2-1.0 [facility] - Good [Mass/volume] in Serum or [facility] Plasma Alanine aminotransferase 29 U/L 13-61 [facility] - Good [Enzymatic activity/volume] [facility] in Serum or Plasma Aspartate aminotransferase 18 U/L 15-37 [facility] - Good [Enzymatic activity/volume] [facility] in Serum or Plasma by With P-5'-P Alkaline phosphatase 98 U/L 45-117 [facility] - G ood [Enzymatic activity/volume] [facility] in Serum or Plasma Protein [Mass/volume] in 6.7 g/dL 6.4-8.2 [facility] - Good Serum or Plasma [facility] ital Albumin [Mass/volume] in 3.4 g/dL 3.5-4.7 Below low normal [facility] - Good Serum or Plasma by [facility] ospital Bromocresol purple (BCP) dye binding method Globulin [Mass/volume] in 3.3 g/dL 1.7-4.7 [facility] - Good Serum by calculation [facility] Albumin/Globulin [Mass 1.1 0.7-2.8 [facility] - Good Ratio] in Serum or Plasma [facility] ID Date Data Source [id number] 08/11/2019 01:09:42 AM EST [facility] - Good [facility] Name Value Range Interpretation Description Data Sup porting Code Source(s) Document(s ) Magnesium 2.1 mg/dL 1.6-2.6 [facility] - Good [Mass/volume] [facility] in Serum or Hospital Plasma ID Date Data Source [id number] 08/11/2019 01:01:18 AM EST [facility] - [facility] Name Value Range Interpretation Description Data Sup porting Code Source(s) Document(s ) Leukocytes 7.7 K/uL 4.8-10.6 [facility] - [#/volume] in Good Blood by [facility] Automated count Hospital Erythrocytes 4.93 4.70-6.0 [facility] - [#/volume] in M/uL 0 Good Blood by [facility] Hemoglobin 14.9 14.0-18. [facility] - [Mass/volume] in g/dL 0 [facility] Blood [facility] Hematocrit 44.4 % 42.0-52. [facility] - [Volume 0 Good Fraction] of [facility] Blood by Hospital Automated count Erythrocyte mean 90.1 FL 81.0-94. [facility] - corpuscular 0 Good volume [Entitic [facility] volume] by Hospital Automated count Erythrocyte mean 30.2 PG 27.0-35. [facility] - corpuscular 0 Good hemoglobin [facility] [Entitic mass] [facility] by Automated count Erythrocyte mean 33.6 30.7-37. [facility] - corpuscular g/dL 3 Good hemoglobin [facility] [Mass/volume] by Automated count Erythrocyte 12.5 % 11.5-14. [facility] - distribution 0 Good width [Ratio] by [facility] Platelets 189 K/uL 130-400 [facility] - [#/volume] in Good Blood by [facility] Platelet mean 9.0 FL 9.2-11.8 Below low normal [facility] - volume [Entitic Good volume] in Blood [facility] by Automated Hospital count Nucleated 0.0 PER 0 [facility] - erythrocytes/100 100 WBC Good leukocytes [facility] [Ratio] in Blood Hospital Nucleated 0.00 0.0-0.01 [facility] - erythrocytes K/uL Good [#/volume] in [facility] Segmented 59 % 48.0-72. [facility] - neutrophils/100 0 Good leukocytes in [facility] Lymphocytes/100 29 % 18.0-40. [facility] - leukocytes in 0 Good Blood [facility] Monocytes/100 7 % 2.0-12.0 [facility] - leukocytes in Good Blood [facility] Eosinophils/100 5 % 0.0-7.0 [facility] - leukocytes in [facility] Basophils/100 1 % 0.0-3.0 [facility] - leukocytes in [facility] Immature 0 % 0-0.5 [facility] - granulocytes/100 Good leukocytes in [facility] by Hospital Automated count Segmented 4.6 K/UL 2.3-7.6 [facility] - neutrophils Good [#/volume] in [facility] Lymphocytes 2.2 K/UL 0.9-4.2 [facility] - [#/volume] in [facility] Monocytes 0.5 K/UL 0.1-1.7 [facility] - [#/volume] in [facility] Eosinophils 0.4 K/UL 0.0-1.0 [facility] - [#/volume] in [facility] Basophils 0.1 K/UL 0.0-0.4 [facility] - [#/volume] in [facility] Immature 0.0 K/UL 0.0-0.17 [facility] - granulocytes Good [#/volume] in [facility] by Hospital Automated count Differential [facility] - cell count Good method [facility] Procedure Social History Code Duration Value Status Description Data Source(s ) Alcohol intake 01/08/2020 Current completed Current [place] [facility] 12:00:00 AM EDT non-drinker non-drinker of [employer] alcohol (finding) [facility] [employer] (finding) Tobacco use and 01/08/2020 Never used completed Never used [facility] exposure 12:00:00 AM EDT [employer] [facility] [employer] Smoking 01/08/2020 Never smoker completed Never smoker [place] [facility] 12:00:00 AM EDT [employer] Alcohol intake 12/25/2019 Current completed Current [place] [facility] 12:00:00 AM EDT non-drinker non-drinker of [employer] alcohol (finding) [facility] [employer] (finding) Tobacco use and 12/25/2019 Never used completed Never used [facility] exposure 12:00:00 AM EDT [employer] [facility] [employer] Smoking 12/25/2019 Never smoker completed Never smoker [place] [facility] 12:00:00 AM EDT [employer] Alcohol intake 12/12/2019 Current completed Current [place] [facility] 12:00:00 AM EDT non-drinker non-drinker of [employer] of alcohol alcohol (finding) [facility] [employer] (finding) Smoking 12/12/2019 Never smoker completed Never smoker [place] [facility] 12:00:00 AM EDT [employer] Alcohol intake 12/05/2019 Current completed Current [place] [facility] 12:00:00 AM EDT non-drinker non-drinker of [employer] alcohol alcohol (finding) [facility] [employer] (finding) Tobacco use and 12/05/2019 Never used completed Never used [facility] exposure 12:00:00 AM EDT [employer] Smoking 12/05/2019 Never smoker completed Never smoker [place] [facility] 12:00:00 AM EDT [employer] Alcohol intake 12/01/2019 Current completed Current [place] [facility] 12:00:00 AM EDT non-drinker non-drinker of [employer] alcohol alcohol (finding) [employer] (finding) Smoking 12/01/2019 Never smoker completed Never smoker [place] [facility] 12:00:00 AM EDT [employer] [facility] [employer] Alcohol intake 11/14/2019 Current completed Current [place] [facility] 12:00:00 AM EDT non-drinker non-drinker of [employer] of alcohol alcohol (finding) [facility] [employer] (finding) Smoking 11/14/2019 Never smoker completed Never smoker [place] [facility] 12:00:00 AM EDT [employer] [facility] [employer] Alcohol intake 11/10/2019 Current completed Current [place] [facility] 12:00:00 AM EDT non-drinker non-drinker of [employer] of alcohol alcohol (finding) [facility] [employer] (finding) Smoking 11/10/2019 Never smoker completed Never smoker [place] [facility] 12:00:00 AM EDT [employer] Alcohol intake 09/06/2019 Current completed Current [place] [facility] 12:00:00 AM EDT non-drinker non-drinker of [employer] alcohol alcohol (finding) [facility] [employer] (finding) Smoking 09/06/2019 Never smoker completed Never smoker [place] [facility] 12:00:00 AM EDT [employer] Alcohol intake 08/16/2019 Current completed Current [place] [facility] 12:00:00 AM EST non-drinker non-drinker of [employer] of alcohol alcohol (finding) [employer] (finding) Smoking 08/16/2019 Never smoker completed Never smoker [place] [facility] 12:00:00 AM EST [employer] Alcohol intake 08/10/2019 Current completed Current [place] [facility] 12:00:00 AM EST non-drinker non-drinker of [employer] of alcohol alcohol (finding) [employer] (finding) Smoking 08/10/2019 Never smoker completed Never smoker [place] [facility] 12:00:00 AM EST [employer] Alcohol intake 07/21/2019 Current completed Current [place] [facility] 12:00:00 AM EST non-drinker non-drinker of [employer] alcohol alcohol (finding) [employer] (finding) Smoking 07/21/2019 Never smoker completed Never smoker [place] [facility] 12:00:00 AM EST [employer] Vital Signs ID Date Data Source UNK Name Value Range Interpretation Code Description Data Source(s) Oxygen saturation 98 % 98 % [place] [facility] in Arterial blood [employer] by Pulse oximetry System [employer] Body mass index 48.95 kg/m2 48.95 kg/m2 [place] ours (BMI) [Ratio] TSB [facility] Body weight 136.533 kg 136.533 kg [facility] Body height 167 cm 167 cm Bon [employer] Inc Respiratory rate 12 /min 12 /min [facility] [employer] Body temperature 36.56 May 36.56 May [facility] [employer] [facility] Heart rate 102 /min 102 /min Bon [employer] Inc Diastolic blood 60 mm[Hg] 60 mm[Hg] [facility] pressure [employer] Inc Systolic blood 100 mm[Hg] 100 mm[Hg] [place] pressure [employer] Diastolic blood 80 mm[Hg] 80 mm[Hg] [facility] pressure [employer] Systolic blood 122 mm[Hg] 122 mm[Hg] [place] pressure [employer] Respiratory rate 20 /min 20 /min [facility] [employer] [facility] Heart rate 70 /min 70 /min [facility] Diastolic blood 70 mm[Hg] 70 mm[Hg] [facility] pressure [employer] [facility] Systolic blood 124 mm[Hg] 124 mm[Hg] [place] pressure [employer] [facility] Respiratory rate 18 /min 18 /min [facility] [employer] [facility] [employer] Body temperature 36.56 May 36.56 May [facility] [employer] [facility] [employer] Heart rate 88 /min 88 /min [facility] Diastolic blood 86 mm[Hg] 86 mm[Hg] [facility] pressure [employer] [facility] Systolic blood 110 mm[Hg] 110 mm[Hg] [place] pressure [employer] Oxygen saturation 98 % 98 % [facility] in Arterial blood [employer] by Pulse oximetry System [employer] Body mass index 47.98 kg/m2 47.98 kg/m2 [facility] (BMI) [Ratio] [facility] System Inc Body weight 133.811 kg 133.811 kg [facility] [employer] Inc Body height 167 cm 167 cm [facility] Respiratory rate 12 /min 12 /min [facility] [employer] [facility] [employer] Body temperature 36.67 May 36.67 May [facility] [employer] [facility] Heart rate 100 /min 100 /min [facility] Diastolic blood 66 mm[Hg] 66 mm[Hg] [facility] pressure [employer] [facility] Systolic blood 102 mm[Hg] 102 mm[Hg] [place] pressure [employer] [facility] Respiratory rate 20 /min 20 /min [facility] [employer] [facility] Heart rate 70 /min 70 /min [facility] Diastolic blood 68 mm[Hg] 68 mm[Hg] [facility] pressure [facility] Systolic blood 120 mm[Hg] 120 mm[Hg] [place] pressure [facility] Respiratory rate 18 /min 18 /min [facility] [employer] [facility] Heart rate 68 /min 68 /min [facility] Diastolic blood 68 mm[Hg] 68 mm[Hg] [facility] pressure [facility] Systolic blood 112 mm[Hg] 112 mm[Hg] [place] pressure [employer] [facility] Respiratory rate 20 /min 20 /min [facility] [employer] [facility] Body temperature 36.56 May 36.56 May [facility] [employer] [facility] Heart rate 92 /min 92 /min [facility] Diastolic blood 70 mm[Hg] 70 mm[Hg] [facility] pressure [facility] Systolic blood 110 mm[Hg] 110 mm[Hg] [place] pressure [employer] [facility] Respiratory rate 20 /min 20 /min [facility] [employer] [facility] Heart rate 68 /min 68 /min [facility] Diastolic blood 72 mm[Hg] 72 mm[Hg] [facility] pressure [facility] Systolic blood 112 mm[Hg] 112 mm[Hg] [place] pressure [employer] [facility] Respiratory rate 20 /min 20 /min [facility] [employer] [facility] Heart rate 82 /min 82 /min Bon SecBlyk System Inc Diastolic blood 66 mm[Hg] 66 mm[Hg] [facility] pressure [employer] [facility] Systolic blood 110 mm[Hg] 110 mm[Hg] [place] pressure [employer] [facility] Respiratory rate 14 /min 14 /min [facility] [employer] [facility] Body temperature 36.89 May 36.89 May [facility] [employer] [facility] Heart rate 72 /min 72 /min [facility] Diastolic blood 74 mm[Hg] 74 mm[Hg] [facility] pressure [facility] Systolic blood 128 mm[Hg] 128 mm[Hg] [place] pressure [employer] [facility] Respiratory rate 20 /min 20 /min [facility] [employer] [facility] Heart rate 68 /min 68 /min [facility] Diastolic blood 64 mm[Hg] 64 mm[Hg] [facility] pressure [facility] Systolic blood 108 mm[Hg] 108 mm[Hg] [place] pressure [facility] Respiratory rate 18 /min 18 /min [facility] [employer] [facility] Heart rate 80 /min 80 /min [facility] Diastolic blood 70 mm[Hg] 70 mm[Hg] [facility] pressure [facility] Systolic blood 98 mm[Hg] 98 mm[Hg] [place] pressure [employer] [facility] Respiratory rate 20 /min 20 /min [facility] [employer] [facility] Body temperature 36.56 May 36.56 May [facility] [employer] [facility] Heart rate 78 /min 78 /min Bon SecBlyk System Inc Diastolic blood 60 mm[Hg] 60 mm[Hg] [facility] pressure [facility] [facility] Inc Systolic blood 110 mm[Hg] 110 mm[Hg] [place] pressure [facility] [facility] Body mass index 48.95 kg/m2 48.95 kg/m2 [facility] (BMI) [Ratio] [employer] Inc Body weight 136.533 kg 136.533 kg Bon DecImmune The[employer] System Inc Respiratory rate 18 /min 18 /min [facility] [facility] Body temperature 36.56 May 36.56 May [facility] [employer] [facility] Heart rate 80 /min 80 /min [employer] Inc Diastolic blood 70 mm[Hg] 70 mm[Hg] [facility] pressure [facility] [facility] Inc Systolic blood 128 mm[Hg] 128 mm[Hg] [place] pressure [employer] [facility] Oxygen saturation 98 % 98 % [facility] in Arterial blood [facility] by Pulse oximetry System Inc Body mass index 48.95 kg/m2 48.95 kg/m2 [facility] (BMI) [Ratio] [employer] Inc Body weight 136.533 kg 136.533 kg [employer] Inc Body height 167 cm 167 cm [employer] Inc Respiratory rate 14 /min 14 /min [facility] [employer] [facility] Body temperature 36.44 May 36.44 May [facility] [employer] [facility] Heart rate 98 /min 98 /min Bon SecBlyk System Inc Diastolic blood 60 mm[Hg] 60 mm[Hg] [facility] pressure [employer] [facility] Inc Systolic blood 110 mm[Hg] 110 mm[Hg] [place] pressure [employer] [facility] Oxygen saturation 96 % 96 % [facility] in Arterial blood [facility] by Pulse oximetry System Inc Respiratory rate 18 /min 18 /min [facility] [employer] [facility] Body temperature 36.72 May 36.72 May [facility] [employer] [facility] Heart rate 80 /min 80 /min Bon DecImmune Therapeutics System Inc Diastolic blood 88 mm[Hg] 88 mm[Hg] [facility] pressure [facility] Systolic blood 128 mm[Hg] 128 mm[Hg] [place] pressure [employer] Body mass index 48.97 kg/m2 48.97 kg/m2 [facility] (BMI) [Ratio] [employer] Body weight 136.578 kg 136.578 kg Bon [employer]ent[employer] Inc Body height 167 cm 167 cm [employer] Inc Oxygen saturation 98 % 98 % [facility] in Arterial blood Bela [employer] by Pulse oximetry System Inc Body mass index 48.30 kg/m2 48.30 kg/m2 [facility] (BMI) [Ratio] [employer] Body weight 134.718 kg 134.718 kg [employer] Inc Body height 167 cm 167 cm [employer] Inc Respiratory rate 14 /min 14 /min [facility] [employer] Inc Body temperature 37.33 May 37.33 May [facility] [employer] Inc Heart rate 100 /min 100 /min [facility] Inc Diastolic blood 68 mm[Hg] 68 mm[Hg] [facility] pressure [employer] Inc Systolic blood 118 mm[Hg] 118 mm[Hg] [place] pressure [employer] Oxygen saturation 98 % 98 % [facility] in Arterial blood Bela [employer] by Pulse oximetry System Inc Body mass index 47.49 kg/m2 47.49 kg/m2 [facility] (BMI) [Ratio] [employer] Body weight 132.45 kg 132.45 kg [employer] Inc Body height 167 cm 167 cm [employer] Inc Respiratory rate 12 /min 12 /min [facility] System Inc Body temperature 36.44 May 36.44 May [facility] [employer] [facility] [facility] Heart rate 88 /min 88 /min [employer] Inc Diastolic blood 70 mm[Hg] 70 mm[Hg] [facility] pressure [employer] Inc Systolic blood 102 mm[Hg] 102 mm[Hg] [place] pressure [employer] [facility] Oxygen saturation 92 % 92 % [facility] in Arterial blood Bela [employer] by Pulse oximetry System Inc Body mass index 45.86 kg/m2 45.86 kg/m2 [facility] (BMI) [Ratio] [employer] Body weight 133.811 kg 133.811 kg Bon [employer]ent[employer] Inc Body height 170.8 cm 170.8 cm Voy[employer] Inc Respiratory rate 12 /min 12 /min [facility] [employer] Body temperature 36.67 May 36.67 May [facility] [employer] Heart rate 88 /min 88 /min Bon [employer] Inc Diastolic blood 80 mm[Hg] 80 mm[Hg] [facility] pressure [employer] Systolic blood 120 mm[Hg] 120 mm[Hg] [place] pressure [employer] Oxygen saturation 95 % 95 % [facility] in Arterial blood [employer]Click by Pulse oximetry System Inc Respiratory rate 18 /min 18 /min [facility] [employer] Body temperature 36.44 May 36.44 May [facility] [employer] Heart rate 100 /min 100 /min [employer] Inc Diastolic blood 80 mm[Hg] 80 mm[Hg] [facility] pressure [employer] Systolic blood 123 mm[Hg] 123 mm[Hg] [place] pressure [employer] Body mass index 46.99 kg/m2 46.99 kg/m2 [facility] (BMI) [Ratio] [employer] Inc Body weight 136.079 kg 136.079 kg Voyat Inc Body height 170.2 cm 170.2 cm [employer] Inc Oxygen saturation 96 % 96 % [facility] in Arterial blood Bela [employer] by Pulse oximetry System Inc Body mass index 45.55 kg/m2 45.55 kg/m2 [facility] (BMI) [Ratio] [employer] Inc Body weight 132.904 kg 132.904 kg [employer] Inc Body height 170.8 cm 170.8 cm [employer] Inc Respiratory rate 14 /min 14 /min [facility] [employer] Body temperature 35.89 May 35.89 May [facility] [employer] Heart rate 96 /min 96 /min [employer] Inc Diastolic blood 78 mm[Hg] 78 mm[Hg] [facility] pressure [employer] Systolic blood 116 mm[Hg] 116 mm[Hg] [place] pressure [employer] Oxygen saturation 92 % 92 % [facility] in Arterial blood Bela [employer] by Pulse oximetry System Inc Respiratory rate 15 /min 15 /min [facility] [employer] [facility] Heart rate 96 /min 96 /min [employer] Inc Diastolic blood 86 mm[Hg] 86 mm[Hg] [facility] pressure [employer] Systolic blood 121 mm[Hg] 121 mm[Hg] [place] pressure [employer] Body mass index 40.18 kg/m2 40.18 kg/m2 [facility] (BMI) [Ratio] [employer]icle [facility] Body weight 127.007 kg 127.007 kg Voy[employer] Inc Body height 177.8 cm 177.8 cm Voyat [facility] Body temperature 36.72 May 36.72 May [facility] [employer] Body temperature 36.33 May 36.33 May [facility] [employer] Oxygen saturation 96 % 96 % [facility] in Arterial blood Bela [employer] by Pulse oximetry System Inc Respiratory rate 21 /min 21 /min [facility] [employer] Heart rate 85 /min 85 /min [employer] Inc Diastolic blood 88 mm[Hg] 88 mm[Hg] [facility] pressure [employer] Systolic blood 155 mm[Hg] 155 mm[Hg] [place] pressure [employer] Body mass index 40.18 kg/m2 40.18 kg/m2 [facility] (BMI) [Ratio] [employer] Inc Body weight 127.007 kg 127.007 kg [employer] Inc Body height 177.8 cm 177.8 cm [employer] Inc Oxygen saturation 98 % 98 % [facility] in Arterial blood [facility] by Pulse oximetry System Inc Body mass index 44.66 kg/m2 44.66 kg/m2 [facility] (BMI) [Ratio] OneCubicle [facility] Body weight 128.368 kg 128.368 kg Voyat Inc Body height 169.5 cm 169.5 cm Voyat Inc Respiratory rate 12 /min 12 /min [facility] [employer] Inc Body temperature 36.28 May 36.28 May [employer] [facility] [employer] Inc Heart rate 68 /min 68 /min [facility] Diastolic blood 80 mm[Hg] 80 mm[Hg] [place] Batesou rs pressure [employer] [employer] Inc Systolic blood 122 mm[Hg] 122 mm[Hg] [place] pressure [employer] [employer] Inc Patient Treatment Plan of Care Planned Activity Planned Date Details Description Data Source (s) Propranolol Hydrochloride 01/08/2020 Francisco Javier [facility] 10 MG Oral Tablet 12:00:00 AM EDT [facility] Clonazepam 0.5 MG Oral 12/25/2019 [facility] Tablet 12:00:00 AM EDT [employer] Ibuprofen 200 MG Oral 12/22/2019 [facility] Tablet 12:00:00 AM EDT [employer] olanzapine 5 MG Oral Tablet 12/09/2019 [facility] 09:00:00 AM EDT [employer] Olmesartan medoxomil 20 MG 12/09/2019 [facility] Oral Tablet 12:00:00 AM EDT [facility] olanzapine 5 MG Oral Tablet 12/09/2019 [facility] 12:00:00 AM EDT [employer] Losartan Potassium 50 MG 12/09/2019 [facility] Oral Tablet 12:00:00 AM EDT [employer] Inc Clonazepam 0.5 MG Oral 12/08/2019 [facility] Tablet 12:00:00 AM EDT [facility] Risperidone 2 MG Oral 12/04/2019 [facility] Tablet 12:00:00 AM EDT [facility] [place] Carbonate 300 MG 11/30/2019 [facility] Oral Capsule 12:00:00 AM EDT [facility] Amitriptyline Hydrochloride 11/12/2019 [facility] 100 MG Oral Tablet 12:00:00 AM EDT [facility] Docusate Sodium 100 MG Oral 11/04/2019 [facility] Capsule 12:00:00 AM EDT [employer] Inc Bisacodyl 5 MG Delayed 11/03/2019 [facility] Release Oral Tablet 12:00:00 AM ED[facility] [facility] Bisacodyl 5 MG Delayed 10/31/2019 [facility] Release Oral Tablet 01:50:17 PM EDT [facility] Acetaminophen 325 MG Oral 10/29/2019 Francisco Javier [facility] Tablet 02:44:40 PM EDT [employer] Inc sodium chloride (NS) flush 10/29/2019 [facility] 5-40 mL 11:01:53 AM ED [employer] Inc 24 HR Bupropion 10/17/2019 [facility] Hydrochloride 150 MG 12:00:00 AM ED [employer] System Inc Extended Release Oral Tablet 24 HR Bupropion 10/17/2019 [facility] Hydrochloride 300 MG 12:00:00 AM ED [employer] [facility] Extended Release Oral Tablet Vraylar 3 mg capsule 09/03/2019 [facility] Bela 12:00:00 AM [facility] [employer] Inc Amitriptyline Hydrochloride 08/20/2019 [facility] 150 MG Oral Tablet 12:00:00 AM [employer] System [facility] [place] Carbonate 150 MG 08/16/2019 [facility] Oral Capsule 12:00:00 AM [facility] [employer] Syste m Inc Prednisone 50 MG Oral 08/16/2019 [facility]a Tablet 12:00:00 AM [facility] [employer] Cyclobenzaprine 07/21/2019 [facility] hydrochloride 10 MG Oral 12:00:00 AM [employer] System [facility] Tablet Acetaminophen 325 MG / 07/21/2019 [facility] Oxycodone Hydrochloride 5 12:00:00 AM [employer] System Inc MG Oral Tablet VRAYLAR 6 mg capsule 07/07/2019 [facility]a 12:00:00 AM EST [employer] valacyclovir 1000 MG Oral 07/17/2018 Francisco Javier [facility] Tablet 12:00:00 AM [facility] [employer] m Inc Clonazepam 2 MG Oral Tablet [facility] I [facility]c cariprazine (Vraylar) 6 mg B on [facility] 24 HR Bupropion [facility] Hydrochloride 300 MG [facility] Extended Release Oral Tablet fluoxetine HCl (PROZAC PO) B on [facility] ziprasidone 80 MG Oral [facility]c
[2020-04-05] MEDS ORDERED: KETAMINE HCL 500 MG/10 ML VIAL ONE (07:53)
[2020-04-05] MEDS ORDERED: PROPOFOL 20 ML ONE (08:23)
[2020-04-05] MEDS ORDERED: LIDOCAINE HCL/PF 2% SDV 5ML VIAL ONE (08:23)
[2020-04-05] MEDS ORDERED: ONDANSETRON 4 MG/2 ML VIAL ONE (08:23)
[2020-04-05] MEDS ORDERED: KETOROLAC TROMETHAMINE 30 MG/1 ML VIAL ONE (08:23)
[2020-04-05] MEDS ORDERED: SUCCINYLCHOLINE CHLORIDE 200 MG/10 ML SYRINGE ONE (08:23)
[2020-04-05] MEDS ORDERED: ONDANSETRON 4 MG/2 ML VIAL IVPUSH PRN (09:21)
[2020-04-05 09:31] VITALS: TEMP 98.1
[2020-04-05 09:58] VITALS: BP 108/67; PULSE 65
== END 2020-04-05 10:00 | disposition home or self-care (01) ==
LOC: FECT 06:59
PROVIDERS: ATTEND Psychiatry & Neurology Psychiatry
PROC: GZB4ZZZ Other Electroconvulsive Therapy (ICD-10-PCS; principal; 2020-04-05 10:00)
DX: F32.9 Major depressive disorder, single episode, unspecified (principal)
CPT/HCPCS: 90870; 94760; C9803; U0003

== ENCOUNTER 2020-04-09 06:02 | Day surgery (SDC) | payer OTHER ==
--- OUTSIDE RECORDS SUMMARY | 2020-04-01 11:46 | XMS ---
:1970 Author Organization [facility] Care Team Providers Name Role Phone [...] by facilities licensed or operated by the [facility] Office of Mental Health; or Provided by the [facility] Office for People With Developmental Disabilities. If such information is present, then the following [facility] mandated warning applies: This information [...] law may result in a fine or assisted sentence or both. A general authorization for the release of medical or other information is NOT sufficient authorization for further disclosure. Encounters Encounter Providers Location Date Indications Data Source(s ) Outpatient 01/08/2020 03:30:00 [facility] PM EDT - 01/12/2020 [facility] 10:23:35 AM EDT Patient discharged. Attender: MARIYA CATHERINE 01/01/2020 12:00:00 AM Bon [facility] Attender: MAURICIO 12/30/2019 12:00:00 [facility] Attender: MARIYA CATHERINE 12/29/2019 12:00:00 AM [facility] 04:00[facility]00 [facility] 06[facility]48[facility]40 [facility] PM EDT Patient discharged. OL 12/25/2019 [facility]:00[facility] 11:59:00 PM EDT Attender: MARIYA 12/25/2019 12:00:00 AM [facility] Attender: SUSI LONGO 12/25/2019 12:00:00 AM [facility] Attender: MAURICIO 12/24/2019 12:00:00 AM [facility] Attender: MARIYA 12/22/2019 12:00:00 AM [facility] Attender: SUSI LONGO 12/22/2019 12:00:00 AM [facility] Attender: MAURICIO 12/19/2019 12:00:00 AM [facility] Attender: MARIYA 12/18/2019 12:00:00 AM [facility] Attender: GLADIS FUNEZ 12/18/2019 12:00:00 AM [facility] Attender: SUSI LONGO 12/17/2019 12:00:00 AM [facility] Attender: MAURICIO 12/16/2019 12:00:00 AM Bon [facility]: MARIYA 12/15/2019 12:00:00 AM [facility] Attender: XANDER COLBERT 12/13/2019 12:00:00 AM [facility] Outpatient 12/12/2019 12:00:00 PM Francisco Javier n [facility] EDT - 12/12/2019 [facility] 01:20:23 PM EDT Patient discharged. Attender: ROSSI 12/08/2019 [facility]55[facility] 12:00:00 AM EDT System In c Inpatient Admitter: RITIKA 12/05/2019 12:00:00 [facility] - 12/08/2019 [facility] 03:44:00 PM EDT General Weakness Patient discharged. Outpatient 12/05/2019 12:00:00 AM EDT [facility] Outpatient 12/01/2019 03:45:00 PM EDT - [facility] 12/01/2019 05:01:16 PM EDT Inc Patient discharged. Outpatient 11/14/2019 01:00:00 PM EDT - [facility] 11/18/2019 11:56:43 AM EDT System Inc Patient discharged. Outpatient 11/10/2019 09:00:00 AM EDT - [facility] 11/10/2019 04:44:05 PM EDT System Inc Patient discharged. Inpatient Admitter: RITIKA CANAS 10/29/2019 12:00:00 AM let hargic [facility] EDT - 11/03/2019 [facility] 04:02:00 PM EDT lethargic Patient discharged. Outpatient 09/15/2019 08:22:58 AM EDT [facility] - 09/15/2019 11:59:00 PM Hospital EDT Outpatient 09/10/2019 04:00:00 PM EDT [facility] Outpatient 09/04/2019 03:15:00 PM EDT [facility] Outpatient 08/19/2019 07:31:00 AM EST [facility] ([facility]) Outpatient 08/18/2019 06:35:00 AM EST [facility] ([facility]) Outpatient 08/17/2019 07:16:00 AM EST [facility]GEN ([facility]) Emergency 08/16/2019 12:00:00 AM EST Shortness of Breath [facility] - 08/16/2019 10:45:00 PM Hospital EST Shortness of Breath Patient discharged. Outpatient 08/11/2019 12:05:00 AM EST [facility] Emergency 08/10/2019 12:00:00 AM EST - Chest P ain [facility] 08/11/2019 01:42:00 AM EST Hospital Chest Pain Patient discharged. Outpatient 07/21/2019 04:15:00 PM EST - [facility] 07/22/2019 10:51:43 AM EST System Inc Patient discharged. Immunizations Vaccine Date Status Description Data Source(s) New in 2012. 09/04/2019 completed Influenza Vaccine 09/04/2019 [facility] 12:00:00 AM EDT (Quad) [facility] Medications Medication Brand Start Product Dose Route Administrative Pharmacy [facility] Indications Reaction Description Data Name [...] Tablet tablet 5 mg EDT dose (after [facility] OLANZapine [facility] (ZyPREXA) modification) S ystem tablet 5 mg on Tue Inc 12/09/19 at 0900, Until Discontinued Medication administered onsite Olmesartan olmesartan 12/09/2019 20 Oral completed h ypertension Take 1 Tab by Bon medoxomil (BENICAR) 12:00:00 AM mg paul th daily [facility] 20 MG Oral 20 mg EDT for 30 days. Bela Tablet tablet Indications: [facility] olmesartan high blood Sys tem (BENICAR) pressure Inc 20 mg tablet hypertension Losartan losartan 12/09/2019 50 Oral active hypertension Take 1 Tab by Bon Potassium (COZAAR) 12:00:00 AM mg mout h daily [facility] 50 MG Oral 50 mg EDT for 30 days. Bela Tablet tablet Indications: [facility] losartan high blood Syste m (COZAAR) [...] doses, Ch arity clonazePAM mg First dose [facility] (KlonoPIN) (after last Sy stem tablet 0.5 modification) Inc mg on 12/07/19 at 1600, Last dose on Denise 12/11/19 at 0900 Medication administered onsite olanzapine OLANZapine 12/07/2019 2.5 Oral aborted 2.5 mg, Oral, Bon 2.5 MG Oral (ZyPREXA) 02:00:00 PM mg D AILY, [facility] Tablet tablet 2.5 EDT dose on Sun Bela OLANZapine mg 12/07/19 at [facility] (ZyPREXA) 1400, Until Sys tem tablet 2.5 Discontinued I nc mg Medication administered onsite [place] lithium 12/07/2019 300 Oral active 300 mg , Oral, Bon Carbonate carbonate SR 02:00:00 PM mg 2 TIMES DAILY, [facility] 300 MG (LITHOBID) EDT First dose o n Bela Extended tablet 300 Sun 0 at [facility] Release Oral mg 1400, Until System Tablet Discontinued Inc lithium carbonate SR (LITHOBID) tablet 300 mg Medication administered onsite Losartan losartan 12/07/2019 50 Oral active 50 m g, Oral, Bon Potassium 50 (COZAAR) 01:00:00 PM mg D AILY, [facility] MG Oral tablet 50 EDT dose on Sun Bela Tablet mg 12/07/19 at [facility] losartan 1300, Until Syst em (COZAAR) Discontinued Inc tablet 50 mg Medication administered onsite furosemide 12513-896-01 12/07/2019 20 IntraVENous complete d 20 mg, [...] 12/13/19 at 0900 Medication administered onsite furosemide 77551-225-14 12/06/2019 20 IntraVENous complete d edema 20 [...] il mg Discontinued Medication administered onsite 0.9% 5736-1359-97 12/05/2019 100 IntraVENous aborted 100 mL/hr, at [...] mg tablet Inc Shared psychotic disorder (HCC) [place] lithium 11/30/2019 aborted Bon Carbonate 300 carbonate [...] (DULCOLAX) 5 Inc mg EC tablet cariprazine 483908 11/01/2019 6 mg Oral active 6 m [...] Ointment ointment EDT Firs t dose on [facility] hydrocortisone 11/01/19 at [facility] (HYTONE) 2.5 % 1800, Unti l System ointment Discontinued Inc Medication administered onsite Docusate docusate 10/31/2019 200 Oral active 200 mg, Oral, Bon Sodium 100 sodium 02:00:00 PM mg DAILY , [facility] MG Oral (COLACE) EDT dose on Sun C harity Capsule capsule 200 10/31/19 at [facility] docusate mg 1400, Until Syst em sodium [...] haloperidoL tablet 5 mg EDT ONCE, 1 [facility] (HALDOL) dose, [facility] tablet 5 mg Denise System 10/30/19 [facility] at 2100 Medication administered onsite amitriptyline 10/30/2019 150 mg Oral active 1 50 mg, Oral, Bon (ELAVIL) tablet 09:00:00 PM EV AN BEDTIME, [facility] 150 mg EDT First dose on [facility] ity Denise 10/30/19 at [facility] 2100, Until System I nc Discontinued Medication administered onsite Haloperidol 2 haloperidoL 10/30/2019 2 mg Oral aborted 2 mg, Oral, Bon MG Oral (HALDOL) 08:01:20 PM EVERY 6 [facility] Tablet tablet 2 mg EDT HOURS Ch arity haloperidoL NEEDED, Healt h (HALDOL) Starting Denise Sys tem tablet 2 mg 10/30/19 at [facility] 2000, Until Sun10/31/19 at 2043, Psychosis, Agitation Medication administered onsite [place] lithium 10/30/2019 300 Oral active 300 mg , Oral, Bon Carbonate carbonate 12:00:00 PM mg 2 T IMES DAILY, [facility] 300 MG Oral tablet 300 EDT First d ose on Bela Tablet mg Denise 10/30/[address] [facility] lithium 1200, Until Syste m carbonate Discontinued In c tablet 300 mg Medication administered onsite Clonazepam 1 clonazePAM 10/30/2019 1 mg Oral active 1 mg, Oral, 2 Bon MG Oral (KlonoPIN) 12:00:00 PM TIME S DAILY, [facility] Tablet tablet 1 mg EDT First dose on Bela clonazePAM Denise 10/30/19 at [facility] (KlonoPIN) 1200, Until Sy stem tablet 1 mg Discontinued [facility] Medication administered onsite 0.9% 2022-4077-72 10/29/2019 100 IntraVENous aborted 100 mL/hr, at Bon sodium 02:55:00 PM mL/h 100 mL/hr, [facility] chloride EDT IntraVENous, Jagruti rity infusion CONTINUOUS, Starting Wed System 10/29/19 at [facility] 1455, Until 11/01/19 at 1446 Medication administered onsite 0.4 ML enoxaparin 10/29/2019 40 SubCUTAneous active 40 mg, Bon Enoxaparin (LOVENOX) 02:55:00 PM mg Gallardo bCUTAneous, [facility] sodium 100 injection 40 EDT EVERY 24 Bela MG/ML mg HOURS, First [facility] Prefilled dose on Sun Sys tem Syringe 10/29/19 at [facility] enoxaparin 1455, Until (LOVENOX) Discontinued injection 40 mg Medication administered onsite Acetaminophen acetaminophen 10/29/2019 650 Oral active 650 mg, Oral, Bon 325 MG Oral (TYLENOL) 02:44:40 PM mg E VERY 4 HOURS [facility] Tablet tablet 650 mg EDT NEEDED , Bela acetaminophen Starting We [facility] (TYLENOL) [facility] mg 1444, Until [facility] Discontinued, Mild Pain, Fever Medication administered onsite sodium 48214-990-06 10/29/2019 mL IntraVENous active 5-40 mL, Bon chloride 02:00:00 PM IntraVENo us, [facility] (NS) flush EDT EVERY 8 Charit y 5-40 mL HOURS, First dose on Wed System 10/29/19 at [facility] 1400, Until Discontinued Medication administered onsite sodium 04547-568-69 10/29/2019 mL IntraVENous active 5-40 mL, Bon [...] XL) 150 mg tablet Vraylar 3 mg 52318-416-76 09/03/2019 6 Oral aborted depre ssion Take [...] EST NOW, 1 Bela chewable tablet dose, [facility] 162 mg 08/16/19 System at 2103 Inc Medication administered onsite famotidine 08/16/2019 20 IntraVENous aborted 20 mg, Bon (PF) (PEPCID) 09:02:00 PM mg Intr aVENous, [facility] 20 mg in 0.9% EST EVERY 12 Ch arity sodium HOURS, First Healt h chloride 10 dose on [facility] ystem mL injection 08/16/19 at I nc 2102, Until Discontinued Medication administered onsite methylPREDNISolone 690770 08/16/2019 125 IntraVENous comple hyun 125 mg, Bon (PF) (Solu-MEDROL) 09:02:00 PM mg IntraVENous, [facility] injection 125 mg EST NOW, 1 d ose, Bela 08/16/19 Health at 2102 System Inc Medication administered onsite 0.9% 4660-0778-06 08/16/2019 1000 IntraVENous completed 1,000 mL, at [...] mg tablet for 3 System days. Inc [place] lithium 08/16/2019 2 Oral active Take 2 [...] Health tablet 162 mg Sun System 08/10/19 [facility] at 2352 Medication administered onsite Cyclobenzaprine [...] back pain due to trauma VRAYLAR 6 39327-316-79 07/07/2019 6 mg Oral aborted Bipolar Take [...] FOR 10 DAYS Herpes zoster cephalicus cariprazine 423974 6 mg Oral aborted Take 6 m g [facility] (Vraylar) 6 mg by mouth C harity capsule daily. [facility] [employer] ziprasidone 80 MG ziprasidone 80 mg Oral aborted Take 80 mg [facility] Oral Capsule (GEODON) 80 mg by mouth Bela ziprasidone capsule two (2) He alth (GEODON) 80 mg times Syst em Inc capsule daily (with meals). fluoxetine HCl 60 mg Oral aborted Take 6 0 mg [facility] (PROZAC PO) by mouth Moira ity daily. [facility] [employer] Clonazepam 2 MG clonazePAM 1 mg Oral [...] ID Covered Covered Policy Plan Coverage type democrat ID democrat's [place] Inform ation relationship to bol[place] [facility] [id number] SP [id number] [facility] [id number] [facility] HEALTH PLAN [id number] [facility] H[facility] [id number] [employer] HEALTH PLAN Commerical [id number] [facility] [id number] PLAN [facility] [id number] [address] [facility] [id number] PLAN [facility] [id number] 900 HEALTH PLAN POLO [id number] POLO [id number] [employer] [address] [id number] [facility] PPO [id number] [place] 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 [id number] COMPENSATION [facility] HEALTH PLAN O [id number] 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 [id number] COMPENSATION [facility] [id number] GENERIC [id number] [facility] [id number] PLAN [facility] GENERIC Commerical [id number] [facility] PPO [id number] PLAN [facility] [id number] PLAN 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 [id number] COMPENSATION [facility] [id number] [facility] HEALTH PLAN PPO [id number] [facility] Problems, Conditions, and Diagnoses Code Display Name Description Problem Type Effective Data Dates Source(s) T88.7XXA Xcb-fqwi-[id number] Iky-lyok-jgoakuo [id number] 12/05/2019 Francisco Javier n [facility] adverse reaction to adverse reaction to 12:00:0 0 AM Bela medication medication [facility] [employer] T50.905A Adverse drug Adverse drug [id number] 12/05/2019 [facility] s reaction, initial reaction, initial 12:00:00 AM [facility] encounter encounter [facility] [employer] G93.40 Encephalopathy acute Encephalopathy acute [id number] 12/04 [facility] 12:00:00 AM Bela [employer] F31.4 Bipolar disorder with Bipolar disorder [id number] 10/29/19 20 [facility] severe depression with severe 12:00:00 AM [facility] depression [employer] E55.9 Vitamin D deficiency Vitamin D deficiency [id number] 09/03 [facility] 12:00:00 AM Bela [employer] F41.8 Mixed anxiety and Mixed anxiety and [id number] 09/04/2019 [facility] depressive disorder depressive disorder 12:00:0 0 AM [facility] E66.01 Morbid obesity Morbid obesity 04409117 07/21/2019 [facility] 12:00:00 AM [facility] Z98.84 Status post gastric Status post gastric [id number] 020 [facility] bypass for obesity bypass for obesity 12:00:00 AM [facility] F32.9 Depressive disorder Depressive disorder [id number] 020 [facility] 12:00:00 AM [facility] F31.9 Bipolar disorder Bipolar disorder [id number] 07/21/2019 Francisco Javier n [facility] 12:00:00 AM [facility] F41.9 Anxiety Anxiety [id number] 07/21/2019 [facility] 12:00:00 AM [facility] G25.2 Other specified forms Other specified Diagnosis 0 [facility] of tremor forms of tremor 03:17:29 PM [facility] F31.4 Bipolar disorder, Bipolar disorder, Diagnosis 12/25/2019 [facility] - Good current episode current episode 04:40:00 PM [facility] depressed, severe, depressed, severe, EDT Hospital without psychotic without psychotic features features F41.9 Anxiety disorder, Anxiety disorder, Diagnosis 12/25/2019 [facility] unspecified unspecified 04:04:24 PM [facility] R25.1 Tremor, unspecified Tremor, unspecified Diagnosis [facility] 04:04:24 PM [facility] Z98.84 Bariatric surgery Bariatric surgery Diagnosis 12/25/2019 [facility] status status 04:04:24 PM [facility] T88.7XXA Unspecified adverse Unspecified adverse Diagnosis [facility] - Good effect of drug or effect of drug or 11:10:37 AM [facility] medicament, initial medicament, initial EDT Hospital encounter encounter G93.40 Encephalopathy, Encephalopathy, Diagnosis 12/05/2019 [facility] - Good unspecified unspecified 11:10:37 AM [facility] Hospital R41.82 Altered mental Altered mental Diagnosis 12/05/2019 [facility] - Good status, unspecified status, unspecified 11:10:3 7 AM [facility] F51.04 Psychophysiologic Psychophysiologic Diagnosis 11/14/2019 [facility] insomnia insomnia 01:22:52 PM [facility] F32.2 Major depressive Major depressive Diagnosis 09/15/2019 [facility] - Good disorder, single disorder, single 08:22:58 AM S [facility]aritan episode, severe episode, severe EDT Hosp ital without psychotic without psychotic features features F41.8 Other specified Other specified Diagnosis 09/04/2019 [facility] anxiety disorders anxiety disorders 03:49:01 PM [facility] F32.2 Major depressive Major depressive Diagnosis 09/04/2019 Francisco Javier n [facility] disorder, single disorder, single 03:49:01 PM C harity episode, severe episode, severe EDT Heal th without psychotic without psychotic System Inc features features Z23 Encounter for Encounter for Diagnosis 09/04/2019 [facility] immunization immunization 03:49:01 PM [facility] T78.40XA Allergy, unspecified, Allergy, Diagnosis 08/16/2019 [facility] initial encounter unspecified, initial 08:39:[address] [facility] R06.00 Dyspnea, unspecified Dyspnea, unspecified Diagnosis 08/10 [facility] 11:27:27 PM [facility] F31.75 Bipolar disorder, in Bipolar disorder, in Diagnosis 07/21 [facility] partial remission, partial remission, 04:40:28 PM [facility] most recent episode most recent episode [facility] Surgeries/Procedures Procedure Description Date Indications Data Source(s) HC HC Routine 12/25/2019 Bipolar 12/25/2019 Bipolar Francisco Javier n LITHIUM LITHIUM 4:41 PM EDT disorder 04:41:00 PM disorde r [facility] with severe EDT with severe [facility] depression depression He alth (HCC) ([facility]) System Inc Bipolar disorder with severe depression ([facility]) GLUCOSE, POC GLUCOSE, POC Routine 12/08/2019 12/08/2019 Bon 11:35 AM 11:35:00 AM [facility] METABOLIC Routine 12/07/2019 12/07/2019 Bon PANEL, BASIC PANEL, BASIC 4:40 AM EDT 04:40:00 A M [facility] EEG 12-26 HR EEG 12-26 HR Routine 12/06/2019 12/06/2019 Bon W/VIDEO W/VIDEO 10:25 AM 10:25:08 AM [facility] LITHIUM HC LITHIUM Routine 12/06/2019 12/06/2019 Bon 4:25 AM EDT [facility]:25:[facility] LACTIC ACID HC LACTIC ACID STAT 12/05/2019 020 Bon 7:20 PM EDT 07:20:00 [facility] HC AMMONIA HC AMMONIA STAT 12/05/2019 12/05/2019 Bon 7:20 PM EDT 07:20:00 PM [facility] MRI BRAIN WO MRI BRAIN WO STAT 12/05/2019 12/05/2019 Bon CONT CONT 4:50 PM EDT 04:50:12 PM [facility] EEG 12-26 HR EEG 12-26 HR STAT 12/05/2019 12/05/2019 Bon W/VIDEO W/VIDEO 3:19 PM EDT 03:19:24 PM [facility] CULTURE, URINE CULTURE, URINE Routine 12/05/2019 020 Bon 2:45 PM EDT 02:45:00 PM [facility] URINALYSIS W/ URINALYSIS W/ STAT 12/05/2019 0 Bon RFLX RFLX 2:45 PM EDT 02:45:00 PM [facility] MICROSCOPIC [facility] BILIRUBIN, BILIRUBIN, Routine 12/05/2019 12/05/2019 Bon CONFIRM CONFIRM 2:45 PM EDT 02:45:00 [facility] LACTIC ACID HC LACTIC ACID STAT 12/05/2019 020 Bon 12:40 PM 12:40:00 PM [facility] CULTURE HC CULTURE STAT 12/05/2019 12/05/2019 Bon BLOOD BLOOD 12:38 PM 12:38:00 PM Sec ours EDT EDT [facility] PROTHROMBIN PROTHROMBIN STAT 12/05/2019 12/05/2019 Bon TIME + INR TIME + INR 12:38 PM 12:38:00 PM [facility] EDT [facility] CBC WITH CBC WITH STAT 12/05/2019 12/05/2019 Bon AUTOMATED DIFF AUTOMATED DIFF 12:38 PM 12:38:00 PM [facility] EDT EDT [facility] HC TROPONIN I HC TROPONIN I STAT 12/05/2019 0 Bon QUANT QUANT 12:38 PM 12:38:00 PM Sec ours EDT EDT [facility] METABOLIC METABOLIC STAT 12/05/2019 12/05/2019 Bon PANEL, PANEL, 12:38 PM 12:38:00 PM Sec ours COMPREHENSIVE COMPREHENSIVE EDT EDT [facility] MAGNESIUM MAGNESIUM STAT 12/05/2019 12/05/2019 Bon 12:38 PM 12:38:00 PM Sec ours EDT EDT [facility] HC LITHIUM HC LITHIUM STAT 12/05/2019 12/05/2019 Bon 12:38 PM 12:38:00 PM Sec ours EDT EDT [facility] CT HEAD WO CT HEAD WO STAT 12/05/2019 12/05/2019 Bon CONT CONT 12:30 PM 12:30:54 PM Sec ours EDT EDT [facility] HC CULTURE HC CULTURE STAT 12/05/2019 12/05/2019 Bon BLOOD BLOOD 12:30 PM 12:30:00 PM Sec ours EDT EDT [facility] XR PELV AP XR PELV AP STAT 12/05/2019 12/05/2019 Bon ONLY ONLY 12:14 PM 12:14:58 PM Sec ours EDT EDT [facility] XR CHEST PORT XR CHEST PORT STAT 12/05/2019 0 Bon 12:14 PM 12:14:51 PM Sec ours EDT EDT [facility] RT--OXYGEN RT--OXYGEN STAT 12/05/2019 12/05/2019 Bon CANNULA CANNULA 11:20 AM 11:20:37 AM Sec ours EDT EDT [facility] EEG DIGITAL EEG DIGITAL Routine 12/05/2019 12/05/2019 Bon ANALYSIS ANALYSIS 11:10 AM 11:10:37 AM S [facility] EDT EDT [facility] CBC WITH CBC WITH STAT 10/30/2019 10/30/2019 Bon AUTOMATED DIFF AUTOMATED DIFF 6:40 AM EDT 06:40: 00 AM [facility] EDT [facility] METABOLIC METABOLIC STAT 10/30/2019 10/30/2019 Bon PANEL, BASIC PANEL, BASIC 6:40 AM EDT 06:40:00 A M [facility] EDT [facility] URINALYSIS W/ URINALYSIS W/ STAT 10/29/2019 0 Bon RFLX RFLX 6:34 PM EDT 06:34:00 PM [facility] MICROSCOPIC MICROSCOPIC EDT [facility] XR CHEST PORT XR CHEST PORT STAT 10/29/2019 0 Bon 12:09 PM 12:09:04 PM Sec ours EDT EDT [facility] CT HEAD WO CT HEAD WO STAT 10/29/2019 10/29/2019 Bon CONT CONT 11:47 AM 11:47:42 AM Sec ours EDT EDT [facility] HC GLUCOSE HC GLUCOSE Routine 10/29/2019 10/29/2019 Bon POCT POCT 11:26 AM 11:26:00 AM Sec ours EDT EDT [facility] PROTHROMBIN PROTHROMBIN STAT 10/29/2019 10/29/2019 Bon TIME + INR TIME + INR 10:45 AM 10:45:00 AM [facility] EDT EDT [facility] CBC WITH CBC WITH STAT 10/29/2019 10/29/2019 Bon AUTOMATED DIFF AUTOMATED DIFF 10:45 AM 10:45:00 AM [facility] EDT EDT [facility] HC PARTIAL HC PARTIAL STAT 10/29/2019 10/29/2019 Bon THROMBOPLASTIN THROMBOPLASTIN 10:45 AM 10:45:00 AM [facility] / PTT / PTT EDT EDT [facility] METABOLIC METABOLIC STAT 10/29/2019 10/29/2019 Bon PANEL, PANEL, 10:45 AM 10:45:00 AM Sec ours COMPREHENSIVE COMPREHENSIVE EDT EDT [facility] HC LITHIUM HC LITHIUM STAT 10/29/2019 10/29/2019 Bon 10:45 AM 10:45:00 AM Sec ours EDT EDT [facility] XR SPINE LUMB XR SPINE [...] n [facility] 9:00 PM EST 02:00:00 AM [facility] I nc CBC WITH AUTOMATED CBC WITH STAT 08/16/2019 0 [facility] DIFF AUTOMATED DIFF 9:00 PM EST 02:00:00 AM [facility] I nc TROPONIN I TROPONIN I STAT 08/16/2019 08/17/2019 [facility] 9:00 PM EST 02:00:00 AM [facility] I nc METABOLIC PANEL, METABOLIC PANEL, STAT 08/16/2019 [facility] COMPREHENSIVE COMPREHENSIVE 9:00 PM EST 02:00:00 AM [facility] I nc MAGNESIUM MAGNESIUM STAT 08/16/2019 08/17/2019 [facility] 9:00 PM EST 02:00:00 AM [facility] I nc LITHIUM LITHIUM STAT 08/16/2019 08/17/2019 [facility] 9:00 PM EST 02:00:00 AM [facility] I nc INFLUENZA A <td><content ID="[id number]">INFLUENZA A & B 07/26 [facility] (RAPID 05:18:00 [facility] (RAPID TEST) TEST)</content></td><td>STAT</td><td>08/11/2019 EST [facility] 12:18 AM EST</td><td></td><td><paragraph Health styleCode="header">Results for this procedure are System in the <content Inc styleCode="[email or web address]-[id number]">results section</content>.</paragraph></td> PROTHROMBIN TIME + PROTHROMBIN TIME STAT 08/11/2019 0 08/11/2019 [facility] INR + INR 12:01 AM EST 05:01:00 AM [facility] nc D DIMER D DIMER STAT 08/11/2019 08/11/2019 [facility] 12:01 AM EST 05:01:00 AM [facility] nc CBC WITH AUTOMATED CBC WITH STAT 08/11/2019 0 [facility] DIFF AUTOMATED DIFF 12:01 AM EST 05:01:00 AM [facility] nc PTT PTT STAT 08/11/2019 08/11/2019 [facility] 12:01 AM EST 05:01:00 AM [facility] nc TROPONIN I TROPONIN I STAT 08/11/2019 08/11/2019 [facility] 12:01 AM EST 05:01:00 AM [facility] nc METABOLIC PANEL, METABOLIC PANEL, STAT 08/11/2019 [facility] COMPREHENSIVE COMPREHENSIVE 12:01 AM EST 05:01:0 0 AM [facility] nc MAGNESIUM MAGNESIUM STAT 08/11/2019 08/11/2019 [facility] 12:01 AM EST 05:01:00 AM [facility] nc LITHIUM LITHIUM STAT 08/11/2019 08/11/2019 [facility] 12:01 AM EST 05:01:00 AM [facility] nc LACTIC ACID LACTIC ACID STAT 08/11/2019 08/11/2019 [facility] 12:01 AM EST 05:01:00 AM [facility] nc BNP BNP STAT 08/11/2019 08/11/2019 [facility] 12:01 AM EST 05:01:00 AM [facility] nc RT--OXYGEN CANNULA RT--OXYGEN STAT 08/10/2019 020 [facility] CANNULA 11:51 PM EST 04:51:27 AM [facility] nc EKG, 12 LEAD, EKG, 12 LEAD, STAT 08/10/2019 0 [facility] INITIAL INITIAL 10:14 PM EST 03:14:27 AM [facility] I nc Results ID Date Data Source [id number] 03/25/2020 09:42:00 AM EDT [facility] Name Value Range Interpretation Description Data Sup porting Code Source(s) Document(s ) SARS [facility] coronavirus 2 RNA [facility] lab [facility] and reported by [facility]. ID Date Data Source [id number] 03/22/2020 09:00:00 AM EDT [facility] Name Value Range Interpretation Description Data Sup porting Code Source(s) Document(s ) SARS [facility] coronavirus 2 RNA This lab was ordered by [facility] and reported by [facility]. ID Date Data Source [id number] 03/19/2020 10:37:00 AM EDT [facility] Name Value Range Interpretation Description Data Sup porting Code Source(s) Document(s ) SARS [facility] coronavirus 2 RNA This lab was ordered by [facility] and reported by [facility]. ID Date Data Source [id number] 03/15/2020 10:30:00 AM EDT [facility] Name Value Range Interpretation Description Data Sup porting Code Source(s) Document(s ) SARS [facility] coronavirus 2 RNA This lab was ordered by [facility] and reported by [facility]. ID Date Data Source [id number] 03/12/2020 12:00:00 PM EDT [facility] Name Value Range Interpretation Description Data Sup porting Code Source(s) Document(s ) SARS [facility] coronavirus 2 RNA This lab was ordered by [facility] and reported by [facility]. ID Date Data Source [id number] 03/08/2020 10:18:00 AM EDT [facility] Name Value Range Interpretation Description Data Sup porting Code Source(s) Document(s ) SARS [facility] coronavirus 2 RNA This lab was ordered by [facility] and reported by [facility]. ID Date Data Source [id number] 03/04/2020 09:50:00 AM EDT [facility] Name Value Range Interpretation Description Data Sup porting Code Source(s) Document(s ) SARS [facility] coronavirus 2 RNA This lab was ordered by [facility] and reported by [facility]. ID Date Data Source [id number] 03/02/2020 12:15:00 PM EDT [facility] Name Value Range Interpretation Description Data Sup porting Code Source(s) Document(s ) SARS [facility] coronavirus 2 RNA This lab was ordered by [facility] and reported by [facility]. ID Date Data Source [id number] 02/27/2020 09:15:00 AM EDT [facility] Name Value Range Interpretation Description Data Sup porting Code Source(s) Document(s ) SARS [facility] coronavirus 2 RNA This lab was ordered by [facility] and reported by [facility]. ID Date Data Source [id number] 02/23/2020 11:40:00 AM EDT [facility] Name Value Range Interpretation Description Data Sup porting Code Source(s) Document(s ) SARS [facility] coronavirus 2 RNA This lab was ordered by [facility] and reported by [facility]. ID Date Data Source [id number] 02/19/2020 09:56:00 AM EDT [facility] Name Value Range Interpretation Description Data Sup porting Code Source(s) Document(s ) SARS [facility] coronavirus 2 RNA This lab was ordered by [facility] and reported by [facility]. ID Date Data Source [id number] 02/16/2020 08:40:00 AM EDT [facility] Name Value Range Interpretation Description Data Sup porting Code Source(s) Document(s ) SARS [facility] coronavirus 2 RNA This lab was ordered by [facility] and reported by [facility]. ID Date Data Source [id number] 02/13/2020 10:05:00 AM EDT [facility] Name Value Range Interpretation Description Data Sup porting Code Source(s) Document(s ) SARS [facility] coronavirus 2 RNA This lab was ordered by [facility] and reported by [facility]. ID Date Data Source [id number] 02/09/2020 10:25:00 AM EDT [facility] Name Value Range Interpretation Description Data Sup porting Code Source(s) Document(s ) SARS [facility] coronavirus 2 RNA This lab was ordered by [facility] and reported by [facility]. ID Date Data Source [id number] 01/25/2020 09:20:00 AM EDT [facility] Name Value Range Interpretation Description Data Sup porting Code Source(s) Document(s ) [address] [facility] Coronavirus RNA Interpretation Unspecified Specimen Qualitative CATA Probe Detection This lab was ordered by [facility] and [facility]. ID Date Data Source [id number] 12/25/2019 05:54:30 PM EDT [facility] Name Value Range Interpretation Description Data Sup porting Code Source(s) Document(s ) [place] 0.38 0.6-1.2 Below low normal [facility] [Moles/volu MMOL/L [facility]] in Hospital Serum or Plasma ID Date Data Source [id number] 12/23/2019 01:50:56 PM EDT [facility] Discharge SummaryPatient: Maxwell Mendieta Xiao key Sex: male DOA: 12/05/2019Date of : 1970 A ge: 49 y.o. LOS: LOS: 3 daysAdmit Date: 12/05/2019Discharge Date: 12/08/2019 Admission Diagnoses: Encephalopathy acute [G93.40];Dyx-fpud-kljhlpl adversereactio n to medication [T88.7XXA];Naa-cqcc-kfvdwla adverse reaction tomedication [T88.7XXA] Discharge Diagnoses: #1 [...] ICD-10-CM: T50.905AICD -9-CM: E947.9 12/05/2019 - Present Dwz-iosg-jdszcyw adverse reaction to med ication ICD-10-CM: T88.1XECZUY-0-JY: 995.20 12/05/2019 - Present Bipolar disorder wit [...] E66.01ICD-9-CM: 278.01 07/19/2018 - Present Spells ICD-10-CM: GDH0425EQK-3-ZM: IMO00 01 04/08/2016 - Present Seizure disorder [...] Supporting Document(s ) ID Date Data Source [id number] 12/09/2019 02:14:04 PM EDT [facility] referral made. [facility] order faxed t o [facility], [facility] and [facility] do NOT acc ept pts insurance.Faxed to Moriah at [facility] at FAX [phone]. She reports they ne ed to get authfor walker. Have instucted pt to buy own walker IF not authorized.He i s agreeable to buying walker if needs to.Care Management InterventionsPCP Verified by CM: YesTransition of Care Consult (CM Consult): [facility] Home Car e: YesCurrent Support Network: Own Home, Lives with SpouseThe Patient and/or Prachi ent Beam Dyer Operator was Provided with a Choice of Providerand Agrees with the Discharge Plan?: YesFreedom of Choice List was Provided with Basic Dialogue that Suppor ts thePatient's Individualized Plan of Care/Goals, Treatment Preferences and Sh aresthe Quality Data Associated with the Providers?: YesVeteran Resource Informat ion Provided?: RefusedDischarge LocationDischarge Placement: Home with [facility] [employer] [...] Supporting Document(s ) ID Date Data Source [id number] 12/08/2019 03:06:17 PM EDT [facility] I have reviewed discharge instructions [...] Supporting Document(s ) ID Date Data Source [id number] 12/08/2019 03:02:56 PM EDT [facility] Per your note, pt with acute encephalopa thy and toxic Serum [place] level.Please specify the type of encephalopathy in yo ur progress notes: Toxic encephalopathy due to lithium Metabolic encephalopathy due to Other cause (please specify) Clinically unable to determine UnknownPLEASE DOCUM ENT ANY ADDITIONAL DIAGNOSES AND/OR SPECIFICITY IN THE PROGRESSNOTES AND/OR DISCHARGE SUMMARY. Name Value Range Interpretation Code Description Data Melani rce(s) Supporting Document(s ) ID Date Data Source [id number] 12/08/2019 02:40:45 PM EDT [facility] Problem: SuicideGoal: *STG: Remains safe [...] Ru Mosher: Progressing Towards GoalGoal: *LTG: Identifies InferX12/08/2019 1440 by Ru Mosher: Resolved/Met12/08/2019 143 by [...] Fall R isk and appropriate [facility]12/08/2019 1440 by Mosher, Divya yOutcome: Resolved/MetNote: Fall [...] Document Harsh Scale and appropriate interventions in [facility] t.12/08/2019 1440 by Ru Mosher: Resolved/MetNote: Pressure [...] Supporting Document(s ) ID Date Data Source [id number] 12/08/2019 02:40:17 PM EDT [facility] Problem: SuicideGoal: *STG: Remains safe [...] Fall R isk and appropriate [facility]Outcome: Progressing Toward s GoalNote: Fall Risk Interventions:Mobility [...] Document Harsh Scale and appropriate interventions in [facility]Outcome: P rogressing Towards GoalNote: Pressure Injury Interventions:Sensory [...] Supporting Document(s ) ID Date Data Source [id number] 12/08/2019 01:18:54 PM EDT [facility] Daily Progress NoteAdmit Date: Hospital day: .tdSubjective:Psycgm Neuro,and PT assessments reviewed. Patie nt qualifies for discharge. Wifecalled, will bring in clothes. New medical regimen di scussed with the . Willneed [place] level later this week.Current Facility-Adminis tered MedicationsMedication [...] past 8 hrs: BP Temp Pulse Resp MhP62312/07 0816 - - - - 96 %12/08/19 [...] initial encounter (12/05/2019)Active Problems: Encephalopathy acute (12/05/2019) Bqi-egdw-ztkwtfz adve rse reaction to medication (12/05/2019)Plan: day of discharge. Name Value Range Interpretation Code Description Data Melani rce(s) Supporting Document(s ) ID Date Data Source [id number] 12/08/2019 12:09:30 PM EDT [facility] Problem: Mobility Impaired (Adult and [...] y.o. male)Date: 12/08/2019Primary Diagnosis: E ncephalopathy acute [G93.40]Mif-nzmf-txmapwv adverse reaction to medication [T88.7XXA ]Zxz-wrwl-qyuowpb adverse reaction to medication [T88.7XXA]Precautions: Fall ASSESSMENT [...] morbidi ty or mortality cardiac cath at [facility] approx 6-8 months ago Other [...] NoneCritical Beh avior:Neurologic State: AlertOrientation Level: Oriented O8Irjuflhlz: Appropriate for age attention/concentration;Follows commandsSafety/Judgement: Decreased awar [...] Supporting Document(s ) ID Date Data Source [id number] 12/08/2019 11:48:26 AM EDT [facility] Name Value Range Interpretation Description Data Sup porting Code Source(s) Document(s ) Glucose 132 MG/DL 65-110 Above high normal [facility] [Mass/volume] [facility]ats[facility] in Blood by Hospital Automated test strip ID Date Data Source [id number] 12/08/2019 10:35:45 AM EDT [facility] S/O Patient has shown improvement. He re ports that medications are helping him.He denies any side effectsHe denies any cecilia cidal thoughtsHe reports that he sees a psychiatrist [facility]Plan continue on lithium 300 mg bid [place] level in two days Will increase Zyprexa 5 mg Will follow up as requested Name Value Range Interpretation Code Description Data Melani rce(s) Supporting Document(s ) ID Date Data Source [id number] 12/08/2019 07:28:52 AM EDT [facility] Bedside and Verbal shift change report cristi Hurley, SUSI (oncoming nurse) Annalise DE LEON RN (offgoing nurse). Repor t included the followinginformation SBAR, Kardex, MAR and Recent Results. Name Value Range Interpretation Code Description Data Melani rce(s) Supporting Document(s ) ID Date Data Source [id number] 12/07/2019 08:26:02 PM EDT [facility] Problem: Falls - Risk ofGoal: [...] Supporting Document(s ) ID Date Data Source [id number] 12/07/2019 07:05:28 PM EDT [facility] Verbal shift change report given to Chandrakant Cox RN (oncoming nurse) by Steven Villalobos RN (offgoing nurse). Report inc luded the following information SBAR, Kardex,Intake/Output, MAR, Recent Result s and Cardiac Rhythm on telemetry. Name Value Range Interpretation Code Description Data Melani rce(s) Supporting Document(s ) ID Date Data Source [id number] 12/07/2019 01:30:56 PM EDT [facility] Trent Jacob MD[address] [place] [address] [id number] Progress NotePatient: Maxwell Bray Sex: male [...] (LOVENOX) injection 40 mg 40 mg SubCUTAneous G56GQepyafedg:Visit VitalsBP 153/85 (BP 1 Location: Left arm, BP Prachi ent Position: At rest)Pulse 96Temp 98.7 F (37.1 C)Resp 20Ht 5' 5.75" (1.67 m)Wt 3 01 lb 1.6 oz (136.6 kg)SpO2 96%BMI 48.97 kg/m Body mass index is 48.97 kg/m .Patient V itals for the past 24 hrs: Temp Pulse Resp BP IcF01012/07/19 1249 - 96 - 153/85 - 0 [...] the time notated as "note time" in [facility]. 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 Seizure disorder ([facility]) G40.909 Spells [id number] Severe obesity ([facility]) E66.01 Depression F32.9 Anxiety F41.9 Bipolar disorder (HCC) F31.9 Depressive disorder F32.9 Status post g astric bypass for obesity Z98.84 Morbid obesity ([facility]) E66.01 Mixed anxiety and depressive disorder F41.8 Vitamin D deficiency E55.9 Bipolar disorder with severe depression (HCC) F31.4 Encephalopathy acute G93.40 Adverse drug reaction, ini tial encounter T50.905A Sbt-dunu-gmsvwso adverse reaction to medication T88.7XXA 49 year [...] Supporting Document(s ) ID Date Data Source [id number] 12/07/2019 01:02:36 PM EDT [facility] Pt seen and discussed with Dr Canas .Pt is tearful flat and denies any suicidal thoughts , has been depressed withlithiu m on hold , No Vraylar and he is unable to get his ECT at [facility] And no w will be with [facility] with Dr Womack his lithium level is un therape utic range I will start on lithium , add 2.5mg of zyprexa and lower his klonopin And increase his elavil to 200 mg HSWill get pt followed up with Psychiatry Name Value Range Interpretation Code Description Data [facility] rce(s) Supporting Document(s ) ID Date Data Source [id number] 12/07/2019 12:52:32 PM EDT [facility] Problem: Fluid Volume - Risk of, Imbalan cedGoal: *Balanced intake and outputOutcome: Progressing Towards GoalProblem: Patient Education: Go to Patient Education ActivityGoal: Patient/Family EducationOu tcome: Progressing Towards Goal Name Value Range Interpretation Code Description Data [facility] rce(s) Supporting Document(s ) ID Date Data Source [id number] 12/07/2019 12:45:20 PM EDT [facility] Problem: Falls - Risk ofGoal: [...] Bra den Scale and appropriate interventions in [facility]Outcome: Progressing Toward s GoalNote: Pressure Injury Interventions:Sensory [...] Supporting Document(s ) ID Date Data Source [id number] 12/07/2019 12:24:47 PM EDT [facility] Daily Progress NoteAdmit Date: Hospital [...] injection 40 mg 40 mg SubCUTA neous M65XNcdjcflzx:Patient Vitals for the past 8 hrs: BP Temp Pulse Resp WkU24012/06 0956 147/86 98.7 F (37.1 C) 95 [...] initial encounter (12/05/2019)Active Problems: Encephalopathy acute (12/05/2019) Yvz-surs-ndpyobv adve rse reaction to medication (12/05/2019)Plan:To increase activity, diet,klonopin. Start Losartan Name Value Range Interpretation Code Description Data Melani rce(s) Supporting Document(s ) ID Date Data Source [id number] 12/07/2019 10:13:28 AM EDT [facility] LTM EEG store group manager DC'd per Dr. Jacob. Name Value Range Interpretation Code Description Data Melani rce(s) Supporting Document(s ) ID Date Data Source [id number] 12/07/2019 10:08:27 AM EDT [facility] [place], [place] [address]HYZDSMC: MAXWELL BRAYMRN: [id number]: [id number]#: [id number] DATE: 12/05/2019LONG TERM MONITORING VIDEO OUT PATIENT THERAPIST: Riky Rodriguez HISTORY: The patient is a [...] montages. Digital analysis was performed employing an [employer] neuralnetwork program with parameterization and statistical analysi [...] seen, that attenuates with eye opening.There was psxt-cr-zojezxer gener alized background slowing.There was no clear focal slowing.ACTIVATION TECHNIQUES: Ph otic stimulation and hyperventilation were notperformed.SLEEP: During drowsiness, there is mild attenuation and slowing of thebackground rhythm. There was normal sleep seen including symmetric vertexwaves, sleep spindles, and K-complexes.OTHER AC TIVITY: There were no clear epileptiform discharges and no seizures orclinical ev ents recorded.DIGITAL ANALYSIS: Variable spectral pattern without significant lef q-rq-hnncdqykhtpztxfu. Spikes were artifact in nature.DECEMBER 06 DAILY [...] the awake and asleep states due to zrgq-oz-efddjdav diffuse cerebraldysfunc tion that improves to mild over the course of the recording. TRENT JACOB, MDDD: #12/06/2019 10:21:35/SS /[id number]/[id number] #: [id number] / [id number] Name Value Range Interpretation Code Description Data [facility] rce(s) Supporting Document(s ) ID Date Data Source [id number] 12/07/2019 07:45:20 AM EDT [facility] Bedside and Verbal shift change report cristi Dove RN (3Loria) (oncomingnurse) by Vy Green RN (offgoing nurse). Report included the following information SBAR, Kardex, MARand Recent Results. Name Value Range Interpretation Code Description Data [facility] rce(s) Supporting Document(s ) ID Date Data Source [id number] 12/07/2019 07:22:41 AM EDT [facility] All leads and head wrapping intact. Day 2 LTM complete. Awaiting instructions tocontinue for day 3 or DC. Name Value Range Interpretation Code Description Data [facility] rce(s) Supporting Document(s ) ID Date Data Source [id number] 12/07/2019 05:19:11 AM EDT [facility] Name Value Range Interpretation Description Data Sup porting Code Source(s) Document(s ) Sodium 138 136-145 [facility] [Moles/volume] mmol/L [facility] in Serum or Hospital Plasma Potassium 3.5 3.5-5.1 [facility] [Moles/volume] mmol/L [facility] in Serum or Hospital Plasma Chloride 106 98-107 [facility] [Moles/volume] mmol/L [facility] in Serum or Hospital Plasma Carbon 27 21-32 [facility] - [facility] dioxide, total mmol/L [facility] [Moles/volume] Hospital in Serum or Plasma Anion gap in 10 10-20 [facility] Serum or mmol/L [facility] Plasma Hospital Glucose 140 74-106 Above high normal [facility] - [facility] [Mass/volume] mg/dL [facility] in Serum or Hospital Plasma Urea nitrogen 19 mg/dL 7-18 Above high normal [facility] - [facility] [Mass/volume] [facility] in Serum or Hospital Plasma Creatinine 0.94 0.70-1.3 [facility] [Mass/volume] mg/dL 0 [facility] in Serum or Hospital Plasma Glomerular >60 [facility] - [facility] filtration [facility] rate/1.73 sq M Hospital predicted among blacks [Volume Rate/Area] in Serum or Plasma by Creatinine-bas ed formula (MDRD) Glomerular >60 [facility] - [facility] filtration Uatsdin rate/1.73 sq M Hospital predicted among non-blacks [Volume Rate/Area] in Serum or Plasma by Creatinine-bas ed formula (MDRD) (NOTE)Estimated GFR is calculated using the Modification of Diet in RenalDisease (MDRD) Study equation, reported for both Americans(GFRAA) and non- Americans (GFRNA), and normalized to 1.7 8k3fdlh surface area. The physician must decide which [...] Serum 9.1 mg/dL 8.5-10.1 [facility] or Plasma Hospital ID Date Data Source [id number] 12/06/2019 08:12:24 PM EDT [facility] Bedside and Verbal shift change report cristi Loyd RN (oncoming nurse) Estephania Wakefield RN (offgoing nurse). Report included the followinginformation SBAR, Kardex, MAR, Recent Results, and Med Rec Status. Name Value Range Interpretation Code Description Data Melani rce(s) Supporting Document(s ) ID Date Data Source [id number] 12/06/2019 04:57:12 PM EDT [facility] General Daily Progress NoteAdmit Date: [...] (LOVENOX) injection 40 mg 40 mg SubCUTAneous M35JGlblrklcv:Patient Vi tals for the past 8 hrs: BP Temp Pulse Resp YbM13212/06/19 1547 (!) 164/100 99.6 F (3 7.6 [...] Time: 12/06/19 4:25 AMResult Value Ref Range [place] level 1.09 0.6 - 1.2 MMOL/L Xr [...] initial encounter (12/05/2019)Active Problems: Encephalopathy acute (12/05/2019) Dpw-ysxs-tjqqwel adve rse reaction to medication (12/05/2019)Plan:To reduce iv fluids, repeat lasix Name Value Range Interpretation Code Description Data Melani rce(s) Supporting Document(s ) ID Date Data Source [id number] 12/06/2019 04:14:48 PM EDT [facility] Psychiatry Consult NoteSubjective:Patien t: Maxwell [...] of morbidity or mortality cardiac cath at [facility] approx 6-8 months ago Other unknown and unspecified cause of morbidity or mortal ity concussions Other unknown and unspecified cause of morbidity or mortal ity "periodic disorientation" Other unknown and unspecified cause of morbidity or mo rtality anxiety Psychiatric disorder anxiety, depressionPsychiatric History: Patient reported he was receiving care in outpatient from [facility] psychiatrist marly faust did not discuss details.Substance Use History:Social HistorySubstance and Sexu al ActivityAlcohol Use No Frequency: Never Drinks per session: 1 or 2 Binge freque ncy: NeverSocial HistorySubstance and Sexual ActivityDrug Use NoObjective:Vitals/Phys ical Assessment:Patient Vitals for the past 8 hrs: BP Temp Pulse Resp FfN29412/06/19 081 3 (!) 153/94 100.4 F (38 [...] encounter (12/05/2019)A ctive Problems: Encephalopathy acute (12/05/2019) Wui-pylw-rmmrhbo adverse re action to medication (12/05/2019)Plan:No current [...] Supporting Document(s ) ID Date Data Source [id number] 12/06/2019 01:18:16 PM EDT [facility] Trent Jacob MD[address] [place] [address] [id number].[facility] [employer] Progress NotePatient: Maxwell Bray Sex: male DOA: 12/05/2019Date of : 1970 Age: 49 y.o. LOS: LOS: 1 daySubjective:Awake, alert, tremulous, no current complaintsEEG w/ mild to mod gen slowREVIEW OF SYSTEMS: NO CP, SOB, N,V,D, F,CCurrent Facility-Administered MedicationsMedication Dose Route Frequen cy 0.9% sodium chloride infusion 125 mL/hr IntraVENous CONTINUOUS enoxaparin (LOVE NOX) injection 40 mg 40 mg SubCUTAneous N25JTfgvjwpmi:Visit VitalsBP (!) 153/94 (BP 1 Location: Left arm, BP Patient Position: At rest)Pulse 100Temp 100.4 F (38 C)Resp 18Ht 5' 5.75" (1.67 m)Wt 300 lb (136.1 kg)SpO2 96%BMI 48.79 kg/m Body mass index is 48.79 kg/m .Patient Vitals for the past 24 hrs: Temp Pulse Resp BP EhO95812/06/19 0813 100.4 F (38 C) 100 18 [...] past 24 hours were reviewed both during [facility] home daily workflow process and at the time notated as "note time" in [facility]. (It is not time stamped separately [...] Time: 12/06/19 4:25 AMResult Value Ref Range [place] level 1.09 0.6 - 1.2 MMOL/LCT Results (most recent):Results from [facility] encounter on 12/05/19CT HEAD WO CONT Narrative CT HEAD W/O CONTRASTPRIOR: Setven tiple: Most recent October 29, 2019: "No [...] the brain.MRI Results (most recent):[facility] on 12/[facility]/19MRI BRAIN WO CONT [...] hic pain of shoulder M79.2 Seizure disorder ([facility]) G40.909 Spells QFS1156 Severe ob esity ([facility]) E66.01 Depression F32.9 Anxiety F41.9 Bipolar disorder ([facility]) F31.9 Dep ressive disorder F32.9 Status post gastric bypass for obesity Z98.84 Morbid obesit y ([facility]) E66.01 Mixed anxiety and depressive disorder F41.8 Vitamin D deficiency E55 .9 Bipolar disorder with severe depression ([facility]) F31.4 Encephalopathy acute G93.40 Adverse drug reaction, initial encounter T50.905A Mhn-ekup-ntpaece adverse react ion to medication T88.7XXA49 year [...] Supporting Document(s ) ID Date Data Source [id number] 12/06/2019 11:43:34 AM EDT [facility] LTM study day 1 complete. All leads and head wrapping intact. Day 2 LTM studycommenced and LIVE via WIFI on [facility]. 06/28 Name Value Range Interpretation Code Description Data Melani rce(s) Supporting Document(s ) ID Date Data Source [id number] 12/06/2019 10:48:32 AM EDT [facility] Care Management InterventionsPCP Verifie d by CM: YesCurrent Support Network: Own Home, Lives with SpouseThe Patient and/o r Patient Beam Dyer Operator was Provided with a Choice of Providerand Agrees with the Betty rose Plan?: YesFreedom of Choice List was Provided with Basic Dialogue that Suppor ts thePatient's Individualized Plan of Care/Goals, Treatment Preferences and Sh aresthe Quality Data Associated with the Providers?: YesVeteran Resource Informat ion Provided?: RefusedDischarge LocationDischarge Placement: HomeCASE YUE LORENZ PSYCHOSOCIAL ASSESSMENTMaxwell Mendieta Asa Admission Marlon e: 12/05/2019MRN: [id number] of : 1970Current date: 12/06/2019 DISCHARGE PLAN: Patient is a 49 year old male admitted to [facility]. CM attempted toreach hi m via room phone and was unsuccessful. CM spoke with the spouses ,Blanca at [phone]. Prior to hospitalization patient was independent of [...] services. Open for SNF. Family would like [facility]. CM CCLINKD. CM willfollow.Patient Information:Patients Preferred [...] NoPCP: Ritika Canas MDAdmitting Provider: Ritika lobo MDBU[facility] SHAREPOINT APPLICATION ARCHITECT: N/APayor: P ayor: [facility] HEALTH PLAN / Plan: [facility] HEALTH PLAN /Product Type: [facility] Payor : @[facility]ENTERINSGROUPNAME@Encephalopathy acute [G93.40]Bum-kkhj-hfxvjys adverse reactio n to medication [T88.7XXA]Upv-fvau-guvbygx adverse reaction to medication [T88.7XXA ]Patient Active Problem ListDiagnosis Code H/O gastric bypass Z98.84 Insomnia G47. 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 Seizure disorder (HCC) G40.909 Spells I [id number] Severe obesity (HCC) E66.01 Depression F32.9 Anxiety F41.9 Bipolar disorder (HCC) F31.9 Depressive disorder F32.9 Status post gastric bypass for ob esity Z98.84 Morbid obesity (HCC) E66.01 Mixed anxiety and depressive disorder F4 1.8 Vitamin D deficiency E55.9 Bipolar disorder with severe depression (HCC) F3 1.4 Encephalopathy acute G93.40 Adverse drug reaction, initial encounter T50.905 A Qby-jzir-twhdyoz adverse reaction to medication T88.7XXASocial HistorySubstan ce and Sexual ActivityAlcohol Use No Frequency: Never Drinks per session: 1 or 2 Binge frequency: NeverNumber of stairs into patient home:DME:Cohabitants:Abuse Screen:Physical Abuse/Neglect: DeniesSexual Abuse: DeniesVerbal Abuse: DeniesOther A buse/Issues: DeniesINSURANCE INFORMATION: (Verification)Primary Notes:Secondary No kenton:Workmen's Comp Notes:No-Fault Notes:SSD Notes:Un-Insured Notes:[facility] Notes:Current Functioning:Language barriers: Notes:Und [...] Supporting Document(s ) ID Date Data Source [id number] 12/06/2019 07:40:06 AM EDT [facility] 8: Patient found in bed resting quiet [...] Supporting Document(s ) ID Date Data Source [id number] 12/06/2019 05:07:27 AM EDT [facility] Name Value Range Interpretation Description Data Sup porting Code Source(s) Document(s ) [place] 1.09 0.6-1.2 [facility] - Good [Moles/volu MMOL/L Uatsdin me] in Hospital Serum or Plasma ID Date Data Source [id number] 12/05/2019 07:59:09 PM EDT [facility] Name Value Range Interpretation Description Data Sup porting Code Source(s) Document(s ) Ammonia 16 UMOL/L 11-32 [facility] - Good [Moles/volum Uatsdin e] in Plasma Hospital ID Date Data Source [id number] 12/05/2019 07:56:38 PM EDT [facility] Name Value Range Interpretation Description Data Sup porting Code Source(s) Document(s ) Lactate 0.9 0.4-2.0 [facility] - Good [Moles/volu MMOL/L Uatsdin me] in Hospital Serum or Plasma ID Date Data Source [id number] 12/05/2019 06:42:57 PM EDT [facility] 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 Day 1 LTM comm enced and LIVE via WIFI on 06/28 Name Value Range Interpretation Code Description Data Melani rce(s) Supporting Document(s ) ID Date Data Source [id number] 12/05/2019 06:07:34 PM EDT [facility] [id number] [facility] GSH 4T OR THOPEDICS [address] [facility] [address] [phone] Maxwell Bray (Male) [id number] I 3 ED Dispo:ADMIT Chief Complaint: Fall, Fatigue Diagnosis: Altered mental status, unspecified altered mental status type [] Adverse drug reaction, initial encounter [] Encephalopathy acute [] Kgn-ysed-uwwqogt adverse effect of medication, subsequent encounter [] Bipolar disorder with severe depression (HCC) [] H/O gastric bypass [] Curre nt Providers: Attending: Patsy Manzo; Kristy Otero; Cristi Canas Consulting Provider: Jose Centeno; Cristi Canas; Javier Khan; Cristi Frazier Primary Nurse: BAILEY GambleN: [id number] [id number] Print Group [phone] - [facility] MrnMRN: [id number] Print Group [phone] - [facility] Age SexDOB 1970 AGE 49 SEX Male Primary Care Provider: Ritika Canas MD Phone: Allergies: (No Known Allergies)Date Reviewed: 12/05/2019Reviewed by: Ritika Canas MD - Review CompleteED Provider Notes: All notesHNO ID: [id number]: Julio Manzo MDService: EMERGENCYAuthor Type: Physici anFiled: [...] of morbidity or mortality cardiac cath at [facility] approx 6-8 months ag o [...] week Gets together: Once a week Attends mormon service: More than 4 times per year [...] Calculation (Bez et) 515 ms Calculated P [place] 40 degrees Calculated R [place] 41 degrees Calculated T [place] 147 degrees Diagnosis Sinus tachycardiaProbable left atrial [...] Time: 12/05/19 12:38 PMResult Value Ref Range [place] level 1 .53 (HH) 0.6 - 1.2 MMOL/LLACTIC ACID Collection Time: 12/05/19 12:40 PMResult Value Ref Range Lactic acid 1.1 0.4 - 2.0 MMOL/LEKG:Sinus tachycardia at 100 BPM, normal axis, nothing acute.Interpreted by Julio Manzo MD11:20 AM wood type finisher reading shows sinus tachycardia at 100 BPM.Interpreted [...] mental status, unspecified altered mental status type R41.83563.97Patient c ondition at time of disposition: StableI [...] thediagnostic studies, unless otherwise noted.+ED Orde rs [id number] 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 [#[id number]] Priority: STAT Class: Hospital Performe d Standing Order Information Remaining Occurrences:0/1 Interval:Continuous Last release d:12/05/2019 Released orders: SunDec 05, 2019 11:20 AM by: JULIO MANZO Type: -> Bedside N [id number] PULSE OXIMETRY CONTINUOUS [#[id number]] Priority: STAT Class: Hospital Performe d Standing Order Information Remaining Occurrences:0/1 Interval:CONTINUOUS Last release d:12/05/2019 Released orders: SunDec 05, 2019 11:20 AM by: JULIO MANZO [id number] PULSE OXIMETRY SPOT CHECK [#[id number]] Priority: STAT Class: Hospital Performed Standing Order Inf ormation Remaining Occurrences:0/1 Interval:ONE TIME Last released:12/05/2019 Release d orders: SunDec 05, 2019 11:20 AM by: JULIO MANZO [id number] OBTAIN OLD EKG [ #[id number]] Priority: Routine Class: Hospital Performed Standing Order Information Remainin g Occurrences:0/1 Interval:ONE TIME Last released:12/05/2019 Released orders : SunDec 05, 2019 11:20 AM by: JULIO MANZO [id number] 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 [# [id number]] Priority: STAT Class: Hospital Performed Type: -> Bedside Released on: 12/05/2019 11:20 AM [id number] PULSE OXIMETRY CONTINUOUS [#[id number]] Priority: STAT Class: Hospital Performe d Released on: 12/05/2019 11:20 AM [id number] PULSE OXIMETRY SPOT CHECK [#[id number]] Priori ty: STAT Class: Hospital Performed Released on: 12/05/2019 11:20 AM [id number] OBTAIN OLD EKG [#[id number]] Priority: STAT Class: Hospital Performed Released on: 12/05/2019 11:20 AM [id number] VITAL SIGNS PER UNIT ROUTINE [#[id number]] Priority: STAT Class: Hospital Performed Stand ing Order Information Remaining Occurrences:0/1 Interval:CONTINUOUS Last released :12/05/2019 Released orders: SunDec 05, 2019 2:41 PM by: RITIKA CANAS Comment:More frequent ly if Indicated. [id number] BEDREST, COMPLETE [#[id number]] Priority: STAT Class: H ospital Performed Standing Order Information Remaining Occurrences:0/1 Interval:CONTIN UOUS Last released:12/05/2019 Released orders: SunDec 05, 2019 2:41 PM by: RITIKA CANAS [id number] NOTIFY PROVIDER: VITAL SIGNS CHANGES [#[id number]] Priority: STAT Class: Hospital Performe d Standing [...] Less than 120 ml in 4 hours [id number] APPLY/MAINTAIN SEQUENTIAL COMPRESSIO* [# [id number]] Priority: STAT Class: Hospital Performed Standing Order Information Remaining Occurre nces:0/1 Interval:CONTINUOUS Last released:12/05/2019 Released orders: SunDec 05, 2019 2:41 PM by: RITIKA CANAS [id number] VITAL SIGNS PER UNIT ROUTINE [#[id number]] Priorit y: STAT Class: Hospital Performed Comment:More frequently if Indicated. Released on: 12/05/2019 2 :41 PM [id number] BEDREST, COMPLETE [#[id number]] Priority: STAT Class: Hospital Performe d Released on: 12/05/2019 2:41 PM [id number] NOTIFY PROVIDER: VITAL SIGNS CHANGES [#[id number]] Priority: STAT Class: Hospital Performed Temp -> [...] carmen rs Released on: 12/05/2019 2:41 PM [id number] APPLY/MAINTAIN SEQUENTIAL COMPRESSIO* [#[id number]] P riority: STAT Class: Hospital Performed Released on: 12/05/2019 2:41 PM [id number] RT--OXYGEN CANNULA [#[id number]] Priority: STAT Class: Hospital Performed Standing Order Information Remaining Occurrences:0/1 Interval:CONTINUOUS Last released:12/05/2019 Released o rders: SunDec 05, 2019 11:20 AM by: JULIO MANZO LPM -> 2 Indications for O2? -> CHEST PAIN [id number] RT--OXYGEN CANNULA [#[id number]] Priority: STAT Class: Hospital Performe d LPM -> 2 Indications for O2? -> CHEST PAIN Released on: 12/05/2019 11:20 AM [id number] DIET NPO [#[id number]] Canceled Priority: STAT Class: Hospital Performed Cancele d by RITIKA CANAS on SunDec 05, 2019 2:41 PM Reason: None Comment: Standing Order Information Remaining Occurrences:0/1 Interval:DIET EFFECTIVE NOW Last released:12/05/2019 Release d orders: SunDec 05, 2019 11:20 AM by: JULIO MANZO NPO options: -> With Meds [id number] DIET NPO [#[id number]] Canceled Priority: STAT Class: Hospital Performed Cancele d by RITIKA CANAS on SunDec 05, 2019 2:41 PM Reason: None Comment: NPO options: -> With Meds Released on: 12/05/2019 11:20 AM [id number] DIET NPO [#[id number]] Priority: S TAT Class: Hospital Performed Standing Order Information Remaining Occurrences:0/1 Inter haile:DIET EFFECTIVE NOW Last released:12/05/2019 Released orders: SunDec 05, 2019 2:41 PM by: RITIKA CANAS [id number] DIET NPO [#[id number]] Priority: STAT Class: H ospital Performed Released on: 12/05/2019 2:41 PM [id number] SALINE LOCK IV [#[id number]] Priority: STAT Class: Hospital Performed Standing Order Information Remaining Occurrences:0 /1 Interval:ONE TIME Last released:12/05/2019 Released orders: SunDec 05, 2019 11:20 AM by: JULIO MANZO IVT11 SALINE LOCK IV [#[id number]] Priority: STAT Cl ass: Hospital Performed Released on: 12/05/2019 11:20 AM [id number] METABOLIC PANEL, COMPREHENSIVE [# [id number]] Priority: STAT Class: ER Collect Standing Order Information Remaining Occurrences:0 /1 Interval:ONE TIME Last released:12/05/2019 Released orders: SunDec 05, 2019 11:20 AM by: JULIO MANZO [id number] CBC WITH AUTOMATED DIFF [#[id number]] Priority: STAT Cl ass: ER Collect Standing Order Information Remaining Occurrences:0/1 Interval:ONE TI ME Last released:12/05/2019 Released orders: SunDec 05, 2019 11:20 AM by: JULIO MANZO [id number] TROPONIN I [#[id number]] Priority: STAT Class: ER Collect Sta nding Order Information Remaining Occurrences:0/1 Interval:ONE TIME Last released:0 12/05/2019 Released orders: SunDec 05, 2019 11:20 AM by: JULIO MANZO [id number] MAGNESIUM [#[id number]] Priority: STAT Class: ER Collect Standing Order Information Remaining Occurrences:0/1 Interval:ONE TIME Last released:12/05/2019 Released orders : SunDec 05, 2019 11:20 AM by: JULIO MANZO [id number] LACTIC ACID [#[id number]] Priority: STAT Class: ER Collect Standing Order Information Remaining Occurrences:0/2 Interval:NOW THEN EVERY 4 HOURS Last released:12/05/2019 Released orders: SunDec 05, 2019 12:06 PM by: JULIO MANZO SunDec 05, 2019 11:20 AM by: JULIO MANZO [id number] PROTHROMBIN TIME + INR [#[id number]] Priority: STAT Class: ER Collect Standing Order Information Remain ing Occurrences:0/1 Interval:ONE TIME Last released:12/05/2019 Released orders : SunDec 05, 2019 11:20 AM by: JULIO MANZO [id number] URINALYSIS W/ RFLX MICROSCOPIC [# [id number]] Priority: STAT Class: ER Collect Standing Order Information Remaining Occurrences:0 /1 Interval:ONE TIME Last released:12/05/2019 Released orders: SunDec 05, 2019 11:20 AM by: JULIO MANZO [id number] METABOLIC PANEL, COMPREHENSIVE [#[id number]] Priority: STAT Cl ass: ER Collect Specimen Source: Plasma Specimen Collected: 12/05/2019 12:38 PM Resulting Agency: [facility] Test ID: MPL Released on: 12/05/2019 11:20 AM [id number] CBC WITH A UTOMATED DIFF [#[id number]] Priority: STAT Class: ER Collect Specimen Source: Whole Blood S pecimen Collected: 12/05/2019 12:38 PM Resulting Agency: [facility] Test ID: CBCXA Released on: 12/05/2019 11:20 AM [id number] TROPONIN I [#[id number]] Prior ity: STAT Class: ER Collect Specimen Source: Plasma Specimen Collected: 12/05/2019 12:38 PM Resultin g Agency: [facility] Test ID: TROIP Released on: 12/05/2019 11:20 AM [id number] 2 MAGNESIUM [#[id number]] Priority: STAT Class: ER Collect Specimen Source : Plasma Specimen Collected: 12/05/2019 12:38 PM Resulting Agency: [facility] Test ID: MGPL Released on: 12/05/2019 11:20 AM [id number] LACTIC ACID [#[id number]] P riority: STAT Class: ER Collect Specimen Source: Plasma Specimen Collected: 12/05/2019 12:40 PM Resultin g Agency: [facility] Test ID: LAC Released on: 12/05/2019 11:20 AM [id number] PROTHR OMBIN TIME + INR [#[id number]] Priority: STAT Class: ER Collect Specimen Source: Plasma Spe cimen Collected: 12/05/2019 12:38 PM Resulting Agency: [facility] Test ID: APTHR R eleased on: 12/05/2019 11:20 AM [id number] URINALYSIS W/ RFLX MICROSCOPIC [#[id number]] Prior ity: STAT Class: ER Collect Specimen Source: Urine Specimen Collected: 12/05/2019 2:45 PM Resultin g Agency: [facility] Test ID: UA Released on: 12/05/2019 11:20 AM [id number] LITHIU M [#[id number]] Priority: STAT Class: ER Collect Standing Order Information Remaining Occurrences:0/1 Interval:ONE TIME Last released:12/05/2019 Released orders : SunDec 05, 2019 11:40 AM by: MECHELLE GAMBLE [id number] LITHIUM [# [id number]] Priority: STAT Class: ER Collect Specimen Source: Serum Specimen Collected: 12/05/2019 12 :38 PM Resulting Agency: [facility] Test ID: LI Released on: 12/05/2019 11:40 AM [id number] LITHIUM [#[id number]] Canceled Priority: STAT Class: ER Collect Canceled by TENA, [facility] on SunDec 05, 2019 11:42 AM Reason: Other Comment: Duplicate Standing Order Information Remaining Occurrences:0/1 Interval:ONE TIME Last released:0 12/05/2019 Released orders: SunDec 05, 2019 11:41 AM by: ANAIS JULIO [id number] LITHIUM [#[id number]] Canceled Priority: STAT Class: ER Collect Specimen Collected: 12/05/2019 11:45 AM Resulting Agency: [facility] Test ID: LI Canceled by TENA, [facility] on SunDec 05, 2019 11:42 AM Reason: Other Comment: Duplicate Rele ased on: 12/05/2019 11:41 AM [id number] LACTIC ACID [#[id number]] Priority: STAT Cl ass: ER Collect Resulting Agency: [facility] Test ID: LAC Released on: 12/05/2019 12:06 PM [id number] AMMONIA [#[id number]] Priority: Routine Class: ER Collect Specimen Source: Blood Standing Order Information Remaining Occurrences:0/1 Interval:ONE TI ME Last released:12/05/2019 Released orders: SunDec 05, 2019 3:19 PM by: Javier KHAN [id number] AMMONIA [#[id number]] Priority: STAT Class: ER Collect Spe cimen Source: Blood Resulting Agency: [facility] Test ID: NH3 Released on: 12/05/2019 3:19 PM [id number] BILIRUBIN, CONFIRM [#[id number]] Priority: Routine Class : ER Collect Resulting Agency: [facility] Test ID: ICTO Standing Order Informat ion Remaining Occurrences:0/1 Released orders: SunDec 05, 2019 2:45 PM by: Automatic B atch Process [id number] BILIRUBIN, CONFIRM [#[id number]] Priority: Routine Class : ER Collect Specimen Source: Miscellaneous sample Specimen Collected: 12/05/2019 2:45 PM Resultin g Agency: [facility] Test ID: ICTO Released on: 12/05/2019 2:45 PM [id number] EKG, 12 LEAD, INITIAL [#[id number]] Priority: STAT Class: Hospital Performed Stand ing Order Information Remaining Occurrences:0/1 Interval:ONE TIME Last released:0 12/05/2019 Released orders: SunDec 05, 2019 11:20 AM by: JULIO MANZO Reason for Exam: -> Chest Pain [id number] EKG, 12 LEAD, INITIAL [#[id number]] Priority: STAT Class: H ospital Performed Resulting Agency: [facility] Test ID: [id number] Reason for Exam: -> Chest Pain Releas ed on: 12/05/2019 11:20 AM [id number] XR CHEST PORT [#[id number]] Priority: STAT Clas s: Hospital Performed Standing Order Information Remaining Occurrences:0/1 Interval:ONE TI ME Last released:12/05/2019 Released orders: SunDec 05, 2019 11:20 AM by: JULIO MANZO Reason for Exam -> Chest Pain [id number] CT HEAD WO CONT [#[id number]] Priority: S TAT Class: Hospital Performed Standing Order Information Remaining Occurrences:0/1 Inter haile:ONE TIME Last released:12/05/2019 Released orders: SunDec 05, 2019 11:20 AM by: JULIO MANZO Reason for Exam -> ams [id number] XR PELV AP ONLY [#[id number]] Priority: S TAT Class: Hospital Performed Standing Order Information Remaining Occurrences:0/1 Inter haile:ONE TIME Last released:12/05/2019 Released orders: SunDec 05, 2019 11:20 AM by: JULIO MANZO Reason for Exam -> fall [id number] XR CHEST PORT [#[id number]] Priority: STAT Class: Hospital Performed Specimen Collected: 12/05/2019 12:21 PM Resulting Agency: [facility] Test ID: [id number] Reason for Exam -> Chest Pain Released on: 12/05/2019 11:[id number] HEAD WO CONT [#[id number]] Priority: STAT Class: Hospital Performed Specimen Collected : 12/05/2019 12:43 PM Resulting Agency: [facility] Test ID: [id number] Reason for Exam -> ams R eleased on: 12/05/2019 11:20 AM [id number] XR PELV AP ONLY [#[id number]] Priority: STAT Class: Hospital Performed Specimen Collected: 12/05/2019 12:23 PM Resulting Agency: [facility] Test ID : [id number] Reason for Exam -> fall Released on: 12/05/2019 11:20 AM [id number] MRI BRAIN WO CONT [#[id number]] Priority: STAT Class: Hospital Performed Standing Order Information Remaining Occurrences:0/1 Interval:ONE TIME Last released:12/05/2019 Released orders : SunDec 05, 2019 3:19 PM by: JOSE KHAN Reason for Exam -> ams [id number] MRI BRA IN WO CONT [#[id number]] Priority: STAT Class: Hospital Performed Specimen Collected : 12/05/2019 5:03 PM Resulting Agency: [facility] Test ID: [id number] Reason for Exam -> ams R eleased on: 12/05/2019 3:19 PM [id number] CULTURE, BLOOD [#[id number]] Priority: Routi ne Class: ER Collect Specimen Source: Blood Standing Order Information Remaining Occurrences:0 /1 Interval:ONE TIME Last released:12/05/2019 Released orders: SunDec 05, 2019 11:20 AM by: JULIO MANZO [id number] CULTURE, BLOOD [#[id number]] Priority: STAT Cl ass: ER Collect Specimen Source: Blood Standing Order Information Remaining Occurrences:0/1 I nterval:ONE TIME Last released:12/05/2019 Released orders: SunDec 05, 2019 11:20 AM by: JULIO MANZO [id number] CULTURE, BLOOD [#[id number]] Priority: STAT Class: E R Collect Specimen Source: Blood Specimen Collected: 12/05/2019 12:38 PM Resulting Agency: [facility] Test ID: HBCS Released on: 12/05/2019 11:20 AM [id number] CULTURE, BLOOD [#[id number]] Priority: STAT Class: ER Collect Specimen Source: Blood Specimen Collected: 12/04 12:30 PM Resulting Agency: [facility] Test ID: HBCS Released on: 12/05/2019 11:20 AM CEFTRIAXONE 1 GRAM IVPB MBP [#[id number]] Priority: STAT Class: Normal An tibiotic Indications -> Sepsis of Unknown Etiology SODIUM CHLORIDE 0.9 % IV [#[id number]] Priority: STAT Class: Normal SODIUM CHLORIDE 0.9 % IV [#[id number]] Priority : STAT Class: Normal ENOXAPARIN 40 MG/0.4 ML SUB-Q SYRINGE [#[id number]] Priority: STAT Class: N ormal ENOXAPARIN 40 MG/0.4 ML SUB-Q SYRINGE [#[id number]] Priority: STAT Class: Normal FUROSEMIDE 10 MG/ML IJ SOLN [#[id number]] Priority: STAT Class: Normal CON53 IP CONSULT TO PS YCHIATRY [#[id number]] Priority: STAT Class: Hospital Performed Standing Order Information Remaining Occurrences:0/1 Interval:ONE TIME Last released:12/05/2019 Released orders : SunDec 05, 2019 11:42 AM by: JULIO MANZO Reason for Consult: -> si Did you call or spea k to the consulting provider? -> No Consult To -> si CON53 IP CONSULT TO PSYCHIATRY [#[id number]] Priority: STAT Class: Hospital Performed Reason for Consult: -> si Did you call or spea k to the consulting provider? -> No Consult To -> si Released on: 12/05/2019 11:42 AM CON62 IP CON SULT TO INTERNAL MEDICINE [#[id number]] Priority: STAT Class: Hospital Performed Standing Order Inf ormation Remaining Occurrences:0/1 Interval:ONE TIME Last released:12/05/2019 Release d orders: SunDec 05, 2019 2:16 PM by: CARLA OTERO Reason for Consult: -> Altered mental st atus, Dr. Canas to admit Did you call or speak to the consulting provider? -> Yes CON62 IP CONSULT TO INTERNAL MEDICINE [#[id number]] Priority: STAT Class: Hospital Performed Reason for Consu lt: -> Altered mental status, Dr. Canas to admit Did you call or speak to the consulting provider? -> Yes Released on: 12/05/2019 2:16 PM CON53 IP CONSULT TO PSYCHIATRY [#[id number]] Priority: STAT Class: Hospital Performed Standing Order Information Remaining Occurrences:0 /1 Interval:ONE TIME Last released:12/05/2019 Released orders: SunDec 05, 2019 2:41 PM by: RITIKA CANAS Reason for Consult: -> adverse med reaction Did you call or speak to t he consulting provider? -> No Consult To -> Dr Aguirre Schedule When? -> TODAY CON9 IP CONSULT TO N EUROLOGY [#[id number]] Priority: STAT Class: Hospital Performed Standing Order Information Remaining Occurrences:0/1 Interval:ONE TIME Last released:12/05/2019 Released orders : SunDec 05, 2019 2:41 PM by: RITIKA CANAS Reason for Consult: -> encephalopathy adverse drug reaction Did you call or speak to the consulting provider? -> No Consult To -> Dr Jacob Schedule When? -> TODAY CON53 IP CONSULT TO PSYCHIATRY [#[id number]] Priority: STAT Class: H ospital Performed Reason for Consult: -> adverse med reaction Did you call or speak to the consulting provider? -> No Consult To -> Dr Aguirre Schedule When? -> TODAY Released on: 12/05/2019 2:41 P M CON9 IP CONSULT TO NEUROLOGY [#[id number]] Priority: STAT Class: Hospital Performe d Reason for Consult: -> encephalopathy adverse drug reaction Did you call or speak to the consulting provider? -> No Consult To -> Dr Jacob Schedule When? -> TODAY Released on: 12/05/2019 2:41 P M [id number] INITIAL PHYSICIAN ORDER: OBSERVATION* [#[id number]] Priority: Routine Class: ADT Pend Trans milvia Standing Order Information Remaining Occurrences:0/1 Interval:ONE TIME Last release d:12/05/2019 Released orders: SunDec 05, 2019 2:00 PM by: LUZ ELENA GATES Patient Class: -> OBS ERVATION Admitting Diagnosis -> Encephalopathy acute Admitting Physician -> CARLA OTERO Attending Physician -> CARLA OTERO [id number] INITIAL PHYSICIAN ORDER: OBSERVATION* [#[id number]] Priority: Routine Class: ADT Pend Transfer Patient Class: -> OBSERVATION Admitting Diagnosis -> Encephalopathy acute Admitting Physician -> CARLA OTERO Attending Physician -> CARLA OTERO Released on: 12/05/2019 2:00 PM [id number] INITIAL PHYSICIAN ORDER: INPATIENT [#[id number]] Joan renner: Routine Class: ADT Pend Transfer [...] o- n- ) Admitting Diagnosis - > Hsm-gdqy-boysope adverse reaction to medication Admitting Physician -> RITIKA CANAS Physician -> RITIKA CANAS Estimated Length of Stay -> 5-7 Midnights Discharge Plan: -> Other (Specify) [id number] INITIAL PHYSICIAN ORDER: INPATIENT [#[id number]] Priority: Routine Class: ADT Pend Tr ansfer [...] i- o- n- ) Admitting Diagnosis -> Fez-tmtu-zqmyqse adverse reaction to medication Admitting Physician -> RITIKA CANAS Attending Physician -> MARY CANAS Estimated Length of Stay -> 5-7 Midnights Discharge Plan: -> Other (Specify) [id number] [facility] PHYSICIAN ORDER: INPATIENT [#[id number]] Priority: Routine Class: ADT Pend Transfer Status: [...] i- o- n- ) Admitting Diagnosis -> Get-megp-cisncie adverse reaction to medication Admitting Physician -> RITIKA CANAS Attending Physician -> MARY CANAS Estimated Length of Stay -> 5-7 Midnights Discharge Plan: -> Other (Specify) Released on: 12/05/2019 2:41 PM [facility] INITIAL PHYSICIAN ORDER: INPATIENT [#[id number]] Priority: Routine Class : ADT Pend Transfer [...] o- n- ) Adm itting Diagnosis -> Hcx-zwof-njgezho adverse reaction to medication Admitting Physician -> RITIKA CANAS Attending Physician -> RITIKA CANAS Estimated Length of Stay -> 5-7 Midnights Discharge Plan: -> Other (Specify) Released on: 12/05/2019 2:41 PM COD2 FULL CODE [#[id number]] Priority: STAT Class: Hospital Performed Standing Order Information Remaining Occurrences:0 /1 Interval:CONTINUOUS Last released:12/05/2019 Released orders: SunDec 05, 2019 2:41 PM by: RITIKA CANAS COD2 FULL CODE [#[id number]] Priority: STAT Cl ass: Hospital Performed Released on: 12/05/2019 2:41 PM [id number] EEG 12-26 HR W/VIDEO [# [id number]] Priority: Routine Class: Hospital Performed Standing Order Information Remaining Occurre nces:0/1 Interval:ONE TIME Last released:12/05/2019 Released orders: SunDec 04 3:19 PM by: JOSE KHAN Reason for Exam: -> ams [id number] EEG 12-26 HR W/VIDEO [#[id number]] Priority: STAT Class: Hospital Performed Resulting Agency: [facility] Test ID: [id number] Reason for Exam: -> ams Released on: 12/05/2019 3:19 JORDYMaxwell waddell MR#: [id number] * Rm: [id number] 01Ht: 5' 5.75" Wt: 300 lb Code: Full Code Iso:Diagnosis:Encep halopathy acute [G93.40]Allergies: No Known Allergies -------- Current as of: 12/05/19 1807 NB=New Bag --aspirin (ASPIRIN) tablet 325 mg #[id number] Admin Amount: 1 Tab (1 x 325 mg Tab) Ordered Dose: 325 mg Route: Oral Freq: ONCE Start Date: 12/24/13 No administration times (back 96 hours, ahead 96 hours). ------diphenhydrAMINE (BENADRYL) capsule 50 mg #[id number] Admin Amount: 1 Cap (1 x 50 mg Cap) Ordered Dose: 50 mg Route: Ora l Freq: NOW Start Date: 12/24/13 No administration times (back 96 hours, ahe ad 96 hours). ------diazepam (VALIUM) tablet 5 mg #[id number] Admin Amount: 1 Tab (1 x 5 mg Tab) Ordered Dose: 5 mg Route: Oral Freq: ON CE Start Date: 12/24/13 No administration times (back 96 hours, ahead 96 hours). ------lidocaine (XYLOCAINE) 10 mg/mL (1 %) injection 1-30 mL #[id number] Admin Amount: 1-30 mL Ordered Dose: 1-30 mL Route: IntraDERMal Freq: ONCE Start Date: 12/24/13 No administration times (back 96 hours, ahead 96 hours). ------heparin (PF) 2 units/ml in NS infusion 2,000 Units #[id number] Admin Amount: 1,000 mL = 2,000 Units of 2 Units/mL Ordered Dose: 1,000 mL Ro gambell: Irrigation Freq: ONCE Start Date: 12/24/13 No administration times (back 96 hours, ahead 96 hours). ------heparinized saline 2 units/mL infusion 1,000 Units #[id number] Admin Amount: 500 mL = 1,000 Units of 2 Units/mL Ordered Dose: 500 mL Ro gambell: IntraarTERial Freq: ONCE Start Date: 12/24/13 No administration times (back 96 hours, ahead 96 hours). ------0.9% sodium chloride infusion #[id number] Ordered Dose: 75 mL/hr Route: IntraVENous Freq: CONTINUOUS Start Date: 12/24/13 Rate: 75 mL/hr Duration: No administration times (back 96 hours, ahead 96 hours). ------ioversol (OPTIRAY) 320 mg iodine/mL contrast injection 1-100 mL #[id number] Admin Amount: 1-100 mL Ordered Dose: 1-100 mL Route: IntraVENous Freq: RAD O NCE Start Date: 12/24/13 No administration times (back 96 hours, ahead 96 hours).Maxwell Bray MR#: [id number] * Rm: 441-01Ht: 5' 5.75" Wt: 300 lb Cod e: Full Code Iso:Diagnosis:Encephalopathy acute [G93.40]Allergies: No Known Allergies -------- Current as of: 12/05/19 1807 NB=New Bag --gadobutrol (GADAVIST) contrast solution 1-10 mL #[id number] Admin Amount: 1-10 mL Ordered Dose: 1-10 mL Route: IntraVENous Freq: RAD O NCE Start Date: 01/13/14 No administration times (back 96 hours, ahead 96 hours). ------sodium chloride (NS) flush 5-10 mL #[id number] Admin Amount: 5-10 mL Ordered Dose: 5-10 mL Route: IntraVENous Freq: RAD ONCE Start Date: 01/13/14 No administration times (back 96 hours, ahead 96 hours). ------sodium chloride (NS) 0.9 % flush #[id number] Ordered Dose: Route: Freq: Start Date: 01/13 No administration times (back 96 hours, ahead 96 hours). ------morphine injection 2 mg #[id number] Admin Amount: 1 mL = 2 mg of 2 mg/mL Ordered Dose: 2 mg Route: IntraVENous Freq: NOW Start Date: 03/13/15 No administration times (back 96 hours, ahe ad 96 hours). ------influenza vaccine (4 yr+)(PF) (FLUCELVAX QUAD) inj ection 0.5*#[id number] Admin Amount: 0.5 mL Ordered Dose: 0.5 mL Route: IntraMUSCular Freq: PRIOR TO DISCHARGE Start Date: 03/30/16 No administration times (back 96 hours, ahead 96 hours). ------oxyCODONE-acetaminophen (PERCOCET) 5-325 mg per tablet 1 Tab #[id number] Admin Amount: 1 Tab Ordered Dose: 1 Tab Route: Oral Freq: NOW Start Date: 09/07/17 No administration times (back 96 hours, ahead 96 hours). ------barium sulfate (READICAT) 2.1 % (w/v), 2.0 % (w /w) oral suspension 9*#[id number] Admin Amount: 900 mL Ordered Dose: 900 mL Route: Oral Delgado q: RAD ONCE Start Date: 10/15/17 No administration times (back 96 hours, ahead 96 hours). ------iopamidol (ISOVUE 300) 61 % contrast injection 100 mL #[id number] Admin Amount: 100 mL Ordered Dose: 100 mL Route: IntraVENous Freq: RAD ONC E Start Date: 10/15/17 No administration times (back 96 hours, ahead 96 hours).Maxwell Bray MR#: [id number] * Rm: 441-01Ht: 5' 5.75" Wt: 300 lb Code: Full Code Iso:Diagnosis:Encephalopathy acute [G93.40]Allergies: No Known Allergies -------- Current as of: 12/05/191806 NB=New Bag --risperiDONE (RisperDAL m-tabs) disintegrating tablet 1 mg #[id number] Admin Amount: 1 Tab (1 x 1 mg Tab) Ordered Dose: 1 mg Route: Oral Freq: ONCE Start Date: 12/24/17 No administration times (back 96 hours, ahead 96 hours). ------ALPRAZolam (XANAX) tablet 2 mg #[id number] Admin Amount: 4 Tab (4 x 0.5 mg Tab) Ordered Dose: 2 mg Route: Ora l Freq: NOW Start Date: 12/24/17 No administration times (back 96 hours, ahe ad 96 hours). ------lamoTRIgine (LaMICtal) tablet 100 mg #[id number] Admin Amount: 1 Tab (1 x 100 mg Tab) Ordered Dose: 100 mg Route: Oral Delgado q: ONCE Start Date: 12/24/17 No administration times (back 96 hours, ahead 96 hours). ------OLANZapine (ZyPREXA zydis) disintegrating tablet 5 mg #[id number] Admin Amount: 1 Tab (1 x 5 mg Tab) Ordered Dose: 5 mg Route: Oral Delgado q: ONCE Start Date: 12/25/17 No administration times (back 96 hours, ahead 96 hours). ------LORazepam (ATIVAN) tablet 2 mg #[id number] Admin Amount: 4 Tab (4 x 0.5 mg Tab) Ordered Dose: 2 mg Route: Ora l Freq: NOW Start Date: 12/25/17 No administration times (back 96 hours, e ad 96 hours). ------LORazepam (ATIVAN) injection 1 mg #[id number] Admin Amount: 0.5 mL = 1 mg of 2 mg/mL Ordered Dose: 1 mg Route: Int TrevorENous Freq: NOW Start Date: 12/25/17 No administration times (back 96 hours, e ad 96 hours). ------barium sulfate (EZ PAQUE) 96 % (w/w) contrast suspension 17 6 g #[id number] Admin Amount: 176 g Ordered Dose: 176 g Route: Oral Freq: RAD ONCE Start Date: 08/02/18 No administration times (back 96 hours, ahead 96 hours). ------barium sulfate (EZ PAQUE) 96 % (w/w) contrast s uspension 176 g #[id number] Admin Amount: 176 g Ordered Dose: 176 g Route: Oral Delgado q: RAD ONCE Start Date: 08/02/18 No administration times (back 96 hours, ahead 96 hours).Luisito Maxwell donovan MR#: [id number] * Rm: 441-01Ht: 5' 5.75" Wt: 300 lb Cod e: Full Code Iso:Diagnosis:Encephalopathy acute [G93.40]Allergies: No Known Allergies -------- Current as of: 12/05/19 180 NB=New Bag --aspirin chewable tablet 162 mg #[id number] Admin Amount: 2 Tab (2 x 81 mg Tab) Ordered Dose: 162 mg Route: Oral Freq: NOW Start Date: 08/10/19 No administration times (back 96 hours, ahead 96 hours). ------0.9% sodium chloride infusion 1,000 mL #[id number] Admin Amount: 1,000 mL Ordered Dose: 1,000 mL Route: IntraVENous Freq: ONC E Start Date: 08/16/19 Rate: 1,000 mL/hr Duration: No administration ti mes (back 96 hours, ahead 96 hours). ------methylPREDNISolone (PF) (Solu-MEDROL) injection 125 mg #[id number] Admin Amount: 2 mL = 125 mg of 125 mg/2 mL Ordered Dose: 125 mg Route: Int raVENous Freq: NOW Start Date: 08/16/19 No administration times (back 96 hours, ahe ad 96 hours). ------aspirin chewable tablet 162 mg #[id number] Admin Amount: 2 Tab (2 x 81 mg Tab) Ordered Dose: 162 mg Route: Oral Delgado q: NOW Start Date: 08/16/19 No administration times (back 96 hours, ahead 96 hours). ------haloperidoL (HALDOL) tablet 5 mg #[id number] Admin Amount: 1 Tab (1 x 5 mg Tab) Ordered Dose: 5 mg Route: Oral Delgado q: ONCE Start Date: 10/30/19 No administration times (back 96 hours, ahead 96 hours). ------cefTRIAXone (ROCEPHIN) 1 g in 0.9% sodium chloride (MBP/ADV) 50 m L M*#[id number] Admin Amount: 1 g Ordered Dose: 1 g Route: IntraVENous Freq: NOW Start Date: 12/05/19 Rate: 100 mL/hr Duration: 30 Minutes Administration linda es (back 96 hours, ahead 96 hours): 12/05/19: 1428NB -----0.9% sodium chloride infusion #[id number] Ordered Dose: 125 mL/hr Route: IntraVENous Freq: CONTINUOUS Start Date: 12/05/19 Rate: 125 mL/hr Duration: Administration times (back 96 hours, ahead 96 hours): 12/05/19: 1408NBMaxwell Bray MR#: [id number] * Rm : 441-01Ht: 5' 5.75" Wt: 300 lb Code: Full Code Iso:Diagnosis:Encephalopathy acute [G93. 40]Allergies: No Known Allergies -------- Current as of: 12/05/19 1807 NB=New Bag --enoxaparin (LOVENOX) injection 40 mg #[id number] Admin Amount: 0.4 mL = 40 mg of 40 mg/0.4 mL Ordered Dose: 40 mg Ro gambell: SubCUTAneous Freq: EVERY 24 HOURS Start Date: 12/05/19 Administration times (back 96 h [facility] 96 hours): 12/05/19: 209912/06/19: 209912/07/19: 209912/08/19: 2099 ---furosemide (LASIX) injection 20 mg #[id number] Admin Amount: 2 mL = 20 mg of 10 mg/mL Ordered Dose: 20 mg Ro gambell: IntraVENous Freq: ONCE Start Date: 12/05/19 Administration times (back 96 hours, [facility] 96 hours): 12/05/19: 1449 ED Current OP [...] With:Ritika Canas MDDetails:Comments:Contact Info:[address] [place]BPaulinafferrussell [phone] Name Value Range Interpretation Code Description Data Melani rce(s) Supporting Document(s ) ID Date Data Source [id number] 12/05/2019 04:36:09 PM EDT [facility] The history is provided by [...] of morbidity or mortality cardiac cath at [facility] approx 6-8 months ag o [...] week Gets together: Once a week Attends mormon service: More than 4 times per year [...] QTC Calculation (Bezet) 515 ms Calculated P [place] 40 degrees Calculat ed R [place] 41 degrees Calculated T [place] 147 degrees Diagnosis Sinus tachycardiaProb able left [...] Time: 12/05/19 12:38 PMResult Value Ref Range [place] level 1.53 (HH) 0.6 - 1.2 MMOL/LLACTIC ACID Collection Time: 12/04 12:40 PMResult Value Ref Range Lactic acid 1.1 0.4 - 2.0 MMOL/LEKG:Sinus tachy cardia at 100 BPM, normal axis, nothing acute.Interpreted by Julio Manzo MD11:2 0 AM wood type finisher reading shows sinus tachycardia at 100 BPM. [...] cardiac monitoring, CXR, and head CT. Will boat deckhand ocephin, IV fluids, and oxygen. Will consult [...] Supporting Document(s ) ID Date Data Source [id number] 12/05/2019 04:05:06 PM EDT [facility] [address] [place] [address] [email or web address] CONSULT NOTEPatient: Maxwell Bray Se x: male [...] or sensory fuentes es. Lab significant of [place] 1.53 and elevatedliver enzymes. Neurology consult ed for encephalopathy/drug adverse reaction.Past Medical History:Diagnosis Date Other unknown and unspecified cause of morbidity or mortality cardiac cath at [facility] approx 6-8 months ago Other unknown [...] QTC Calculation (Bezet) 515 ms Calculated P [place] 40 degrees Calculated R [place] 41 degrees Calculated T [place] 147 degrees Diagnosis Sinus tachycardiaProbable left atrial [...] Time: 12/05/19 12:38 PMResult Value Ref Range [place] level 1.53 (HH) 0.6 - 1.2 MMOL/LLACTIC [...] QTC Calculation (Bezet) 515 ms Calculated P [place] 40 degrees Calculat ed R [place] 41 degrees Calculated T [place] 147 degrees Diagnosis Sinus tachycardiaProb able left [...] ulder M79.2 Seizure disorder (HCC) G40.909 Spells [id number] Severe obesity (HCC) E66 .01 Depression F32.9 Anxiety F41.9 Bipolar disorder (HCC) F31.9 Depressive disorde r F32.9 Status post gastric bypass for obesity Z98.84 Morbid obesity (HCC) E66 .01 Mixed anxiety and depressive disorder F41.8 Vitamin D deficiency E55.9 Bipol ar disorder with severe depression (HCC) F31.4 Encephalopathy acute G93.40 Adve rse drug reaction, initial encounter T50.905A Xvs-csva-eynkhlw adverse reaction to me dication T88.7XXA49 year old male with pmh as stated above and now with AMS and genera lizedweakness - most likely secondary to lithium toxicity - ? Seizure.Plan: Mri Brain Ammonia Monitor lithium level daily EEG - 24 hrs Seizure precautionsPaulson Gerald Flores 2019 3:19 [id number] Name Value Range Interpretation Code Description Data Melani rce(s) Supporting Document(s ) ID Date Data Source [id number] 12/05/2019 03:37:45 PM EDT [facility] sbar-q given to Ev HERNANDEZ RNAwaiting tr ansport to floor Name Value Range Interpretation Code Description Data Melani rce(s) Supporting Document(s ) ID Date Data Source [id number] 12/05/2019 03:29:57 PM EDT [facility] sbar-q given to Sheri UGALDE on floor Name Value Range Interpretation Code Description Data [facility] Supporting Document(s ) ID Date Data Source [id number] 12/05/2019 03:28:02 PM EDT [facility] History & PhysicalBrian Anam Bray [...] h igh dose amytriptylene 200 mg nightly, [place], andVraylar 6 mg. :[place] level on prior admission therapeutic. Patient's wifecontactedthis [...] of morbidity or mortality cardiac cath at [facility] approx 6-8 months ag o [...] week Gets together: Once a week Attends mormon service: More than 4 times per year [...] Calculati on (Bezet) 515 ms Calculated P [place] 40 degrees Calculated R [place] 41 degrees Elena culated T [place] 147 degrees Diagnosis Sinus tachycardiaProbable left atrial [...] Time: 12/05/19 12:38 PMResult Value Ref Range [place] level 1.53 (HH) 0.6 - 1.2 MMOL/LLACTIC ACID Collection Time: 12/04 12:40 PMResult Value Ref Range Lactic acid 1.1 0.4 - 2.0 MMOL/All lab results for the last 24 hours reviewed. Serun [place] level toxicAssessment/PlanPrinci pal Problem: Adverse drug reaction, initial encounter (12/05/2019) LithiumActive Prob lems: Encephalopathy acute (12/05/2019) Mwa-nkab-tmwpnch adverse reaction to med ication (12/05/2019)Neuro, and psych evaluation, hydrationGeorge MD Corey Name Value Range Interpretation Code Description Data Melani rce(s) Supporting Document(s ) ID Date Data Source [id number] 12/06/2019 12:36:10 PM EDT [facility] Name Value Range Interpretation Description Data Sup porting Code Source(s) Document(s ) Service comment [facility] Bacteria [facility] identified in [facility] Unspecified [facility] specimen by Culture ID Date Data Source [id number] 12/05/2019 04:18:26 PM EDT [facility] Name Value Range Interpretation Description Data Sup porting Code Source(s) Document(s ) Color of Urine YEL Abnormal (applies [facility] - to non-numeric Good results) [facility] Appearance of CLEAR Abnormal (applies [facility] - Urine to non-numeric Good results) [facility] Specific gravity 1.033 1.003-1. Above high normal [facility] - of Urine by 030 Good Refractometry [facility] pH of Urine by 5.5 4.6-8.0 [facility] - Test strip [facility] Protein 30 mg/dL NEG Abnormal (applies [facility] - [Mass/volume] in to non-numeric Good Urine by Test results) [facility] Glucose NEG [facility] - [Mass/volume] in Good Urine by [facility] Automated test Hospital strip Ketones 15 mg/dL NEG Abnormal (applies [facility] - [Presence] in to non-numeric Good Urine by results) [facility] Automated test [facility] strip Bilirubin.total NEG Abnormal (applies [facility] - [Presence] in to non-numeric Good Urine results) [facility] Hemoglobin NEG [facility] - [Presence] in Good Urine by Test [facility] Urobilinogen 1.0 0.2-1.0 [facility] - [Presence] in EU/dL Good Urine by [facility] Automated test Hospital strip Nitrite NEG [facility] - [Presence] in Good Urine by [facility] Automated test Hospital strip Leukocyte NEG [facility] - esterase Good [Presence] in [facility] Urine by Hospital Automated test strip Leukocytes 0-5 [facility] - [Presence] in Good Urine sediment [place] by Light [facility] microscopy Erythrocytes 0-2 [facility] - [#/area] in Good Urine sediment [facility] by [facility] high power field Epithelial cells 0-10 [facility] - [#/area] in Good Urine sediment [facility] by [facility] high power field Bacteria NONE Abnormal (applies [facility] - [Presence] in to non-numeric Good Urine sediment results) [facility] microscopy ID Date Data Source [id number] 12/05/2019 03:26:35 PM EDT [facility] Name Value Range Interpretation Description Data Sup porting Code Source(s) Document(s ) Bilirubin NEG [facility] - Good [Presence] in [facility] Urine by Hospital Confirmatory method ID Date Data Source [id number] 12/05/2019 02:22:27 PM EDT [facility] I spoke to Dr. Canas regarding Observation Status. Dr. Canas said patient will bemade In Patient Status today. Name Value Range Interpretation Code Description Data Melani rce(s) Supporting Document(s ) ID Date Data Source [id number] 12/05/2019 02:03:27 PM EDT [facility] SW/Psych Screener attempted to meet with Pt for MH evaluation. Pt was foundlying on stretcher with his eyes open, staring at the wall. Steel Spar Operator knows this Ptfrom previous admission to the medical floor. When ask ed if Pt rememberedwriter, Pt appeared confused, but said he did. Pt stated he fell today, doesn'tremember how he was brought to the hospital. Pt appeared to be searching for hiswords and was having difficulty speaking. Pt unclear of where he is, stating"[place]" when asked where he was and "[place]" when asked what month it was. Whenasked if Pt was exhibiting any feelings of S/I, H/I or A/V Hallucinatio ns, Ptresponded with, "No," and confirmed he has been compliant with his psychiatricm edications. Steel Spar Operator conferred with ER Attending, Dr. Manzo, who states that Ptwi ll most likely be medically admitted at this time.Krystina Centeno, [facility], [facility] Name Value Range Interpretation Code Description Data Melani rce(s) Supporting Document(s ) ID Date Data Source [id number] 12/05/2019 12:53:37 PM EDT [facility] CT HEAD W/O CONTRASTPRIOR: Multiple: [...] Supporting Document(s ) ID Date Data Source [id number] 12/05/2019 01:31:37 PM EDT [facility] Name Value Range Interpretation Description Data Sup porting Code Source(s) Document(s ) Lactate 1.1 0.4-2.0 [facility] - Good [Moles/volu MMOL/L [facility]] in Hospital Serum or Plasma ID Date Data Source [id number] 12/10/2019 05:19:22 AM EDT [facility] Name Value Range Interpretation Description Data Sup porting Code Source(s) Document(s ) Service comment [facility] Bacteria [facility] identified in [facility] Unspecified Hospital specimen by Culture ID Date Data Source [id number] 12/05/2019 02:14:34 PM EDT [facility] Name Value Range Interpretation Description Data Sup porting Code Source(s) Document(s ) [place] 1.53 0.6-1.2 Above upper panic [facility] - Good [Moles/volu MMOL/L limits [facility]] in Hospital Serum or Plasma CALLED TO AND READ BACK BYSUSI GAMBLE 1414 12/05/19 [facility] ID Date Data Source [id number] 12/05/2019 01:31:37 PM EDT [facility] Name Value Range Interpretation Description Data Sup porting Code Source(s) Document(s ) Troponin 0.00-0.05 [facility] - Good I.cardiac [facility] [Mass/volume Hospital ] in Serum or Plasma [...] to 1.50 ng/mL ID Date Data Source [id number] 12/05/2019 01:31:37 PM EDT [facility] - Good [facility] Hospital Name Value Range Interpretation Description Data Sup porting Code Source(s) Document(s ) Sodium 134 136-145 Below low normal [facility] - Good [Moles/volume] mmol/L [facility] in Serum or Hospital Plasma Potassium 3.5 3.5-5.1 [facility] - Good [Moles/volume] mmol/L [facility] in Serum or Hospital Plasma Chloride 104 98-107 [facility] - Good [Moles/volume] mmol/L [facility] in Serum or Hospital Plasma Carbon 26 21-32 [facility] - Good dioxide, total mmol/L [facility] [Moles/volume] Hospital in Serum or Plasma Anion gap in 7 mmol/L 10-20 Below low normal [facility] - Go od Serum or [facility] Plasma Hospital Glucose 127 74-106 Above high normal [facility] - Good [Mass/volume] mg/dL [facility] in Serum or Hospital Plasma Urea nitrogen 21 mg/dL 7-18 Above high normal [facility] - Good [Mass/volume] [facility] in Serum or Hospital Plasma Creatinine 0.94 0.70-1.3 [facility] - Good [Mass/volume] mg/dL 0 [facility] in Serum or Hospital Plasma Glomerular >60 [facility] - Good filtration [facility] rate/1.73 sq M Hospital predicted among blacks [Volume Rate/Area] in Serum or Plasma by Creatinine-bas ed formula (MDRD) Glomerular >60 [facility] - Good filtration [facility] rate/1.73 sq M Hospital predicted among non-blacks [Volume Rate/Area] in Serum or Plasma by Creatinine-bas ed formula (MDRD) (NOTE)Estimated GFR is calculated using the Modification of Diet in RenalDisease (MDRD) Study equation, reported for both Americans(GFRAA) and non- Americans (GFRNA), and normalized to 1.7 4b0rpyn surface area. The physician must decide which [...] normal [facility] - Good Serum or Plasma [facility] ital Bilirubin.total 0.9 mg/dL 0.2-1.0 [facility] - Good [Mass/volume] in Serum or [facility] Plasma Alanine aminotransferase 34 U/L 13-61 [facility] - Good [Enzymatic activity/volume] [facility] in Serum or Plasma Aspartate aminotransferase 47 U/L 15-37 Above high [facility] - Good [Enzymatic activity/volume] normal [facility] in Serum or Plasma by With P-5'-P Alkaline phosphatase 171 U/L 45-117 Above high [facility] - Good [Enzymatic activity/volume] normal [facility] in Serum or Plasma Protein [Mass/volume] in 7.5 g/dL 6.4-8.2 [facility] - Good Serum or Plasma [facility] ital Albumin [Mass/volume] in 3.8 g/dL 3.5-4.7 [facility] - Good Serum or Plasma by [facility] ostal Bromocresol purple (BCP) dye binding method Globulin [Mass/volume] in 3.7 g/dL 1.7-4.7 [facility] - Good Serum by calculation [facility] Albumin/Globulin [Mass 1.0 0.7-2.8 [facility] - Good Ratio] in Serum or Plasma [facility] ID Date Data Source [id number] 12/05/2019 01:31:37 PM EDT [facility] - Good [facility] Name Value Range Interpretation Description Data Sup porting Code Source(s) Document(s ) Magnesium 2.9 mg/dL 1.6-2.6 Above high normal [facility] - Good [Mass/volume] [facility] in Serum or [facility] Plasma ID Date Data Source [id number] 12/05/2019 01:20:04 PM EDT [facility] - Good [facility] Name Value Range Interpretation Description Data Sup porting Code Source(s) Document(s ) Prothrombin 10.6 sec 9.4-11.1 [facility] - Good time (PT) [facility] INR in 1.0 0.8-1.2 [facility] - Good Platelet poor [facility] plasma by Hospital Coagulation assay ID Date Data Source [id number] 12/05/2019 01:07:21 PM EDT [facility] - [facility] Name Value Range Interpretation Description Data Sup porting Code Source(s) Document(s ) Leukocytes 12.4 4.8-10.6 Above high normal [facility] - [#/volume] in K/uL Good Blood by [facility] Automated count [facility] Erythrocytes 5.03 4.70-6.0 [facility] - [#/volume] in M/uL 0 Good Blood by [facility] Automated count [facility] Hemoglobin 15.4 14.0-18. [facility] - [Mass/volume] in g/dL 0 [facility] Blood [facility] Hematocrit 45.8 % 42.0-52. [facility] - [Volume 0 Good Fraction] of [facility] Blood by Hospital Automated count Erythrocyte mean 91.1 FL 81.0-94. [facility] - corpuscular 0 Good volume [Entitic [facility] volume] by Hospital Automated count Erythrocyte mean 30.6 PG 27.0-35. [facility] - corpuscular 0 Good hemoglobin [facility] [Entitic mass] Hospital by Automated count Erythrocyte mean 33.6 30.7-37. [facility] - corpuscular g/dL 3 Good hemoglobin [facility] concentration [facility] [Mass/volume] by Automated count Erythrocyte 12.9 % 11.5-14. [facility] - distribution 0 Good width [Ratio] by [facility] Platelets 164 K/uL 130-400 [facility] - [#/volume] in Good Blood by [facility] Automated [facility] Platelet mean 9.5 FL 9.2-11.8 [facility] - volume [Entitic Good volume] in Blood [facility] by Automated Hospital count Nucleated 0.0 PER 0 [facility] - erythrocytes/100 100 WBC Good leukocytes [facility] [Ratio] in Blood Hospital Nucleated 0.00 0.0-0.01 [facility] - erythrocytes K/uL Good [#/volume] in [facility] Segmented 80 % 48.0-72. Above high normal [facility] - neutrophils/100 0 Good leukocytes in [facility] Lymphocytes/100 8 % 18.0-40. Below low normal [facility] - leukocytes in 0 Good Blood [facility] Monocytes/100 10 % 2.0-12.0 [facility] - leukocytes in [facility] Eosinophils/100 1 % 0.0-7.0 [facility] - leukocytes in [facility] Basophils/100 0 % 0.0-3.0 [facility] - leukocytes in [facility] Immature 0 % 0-0.5 [facility] - granulocytes/100 Good leukocytes in [facility] by [facility] Automated count Segmented 10.0 2.3-7.6 Above high normal [facility] - neutrophils K/UL Good [#/volume] in [facility] Lymphocytes 1.0 K/UL 0.9-4.2 [facility] - [#/volume] in [facility] Monocytes 1.2 K/UL 0.1-1.7 [facility] - [#/volume] in [facility] Eosinophils 0.1 K/UL 0.0-1.0 [facility] - [#/volume] in [facility] Basophils 0.0 K/UL 0.0-0.4 [facility] - [#/volume] in [facility] Immature 0.1 K/UL 0.0-0.17 [facility] - granulocytes Good [#/volume] in [facility] Automated count Differential [facility] - cell count [facility] ID Date Data Source [id number] 12/10/2019 05:19:23 AM EDT [facility] Name Value Range Interpretation Description Data Sup porting Code Source(s) Document(s ) Service comment [facility] Bacteria [facility] identified in [facility] specimen by Culture ID Date Data Source [id number] 12/05/2019 12:24:35 PM EDT [facility] PELVIS one view.History: TraumaThe study is suboptimal due to the patient's body habitus.There is no evidence of fracture , dislocation, subluxation, bone erosion orarthritis.IMPRESSION: Grossly normal s tudy. Signing date/time: 12/05/2019 12:24 PMSigned by: CURTIS VARMA Name Value Range Interpretation Code Description Data Melani rce(s) Supporting Document(s ) ID Date Data Source [id number] 12/05/2019 12:23:11 PM EDT [facility] CHEST 1 view (s)HISTORY: Chest [...] Supporting Document(s ) ID Date Data Source [id number] 12/05/2019 11:34:39 AM EDT [facility] BIBA for fall in the middle of the night while going to bathroomC/p left hip pain Name Value Range Interpretation Code Description Data Melani rce(s) Supporting Document(s ) ID Date Data Source [id number] 12/05/2019 11:21:27 AM EDT [facility] Please enter the current weight for this patient in [facility]. Thank you. Name Value Range Interpretation Code Description Data Melani rce(s) Supporting Document(s ) ID Date Data Source [id number] 11/23/2019 02:02:47 PM EDT [facility] Discharge SummaryPatient: Maxwell Mendieta Xiao mackey Sex: [...] E66.01ICD-9-CM: 278.01 07/19/2018 - Present Spells ICD-10-CM: [id number]-IS: IMO00 01 04/08/2016 - Present Seizure disorder [...] tr eated with parenteral hydration with benefit g7tutpihssyawfexnlj responses. Of note i s fact that patient was scheduled to begin ECTtreatment for depression when Covid 1 9 pandemic curtained this plan.Consults: PsychiatrySignificant Diagnostic Studies : labs: microbiology: , radiology: and cardiacgraphics:Discharge Medications: @DISCHARGEMEDLIST@Activity: Activity as toleratedDiet: Resume previous dietWound Care: None neededFollow-up: This examiner to follow in officeRitika Canas MD Name Value Range Interpretation Code Description Data [facility](s) Supporting Document(s ) ID Date Data Source [id number] 11/03/2019 09:41:35 PM EDT [facility] Verbal shift change report given to , RN (oncoming nurse) by Scott Beverly RN (offgoing nurse). Report included the fo llowing information SBAR, Kardex,Intake/Output, MAR and Recent Res ults. Name Value Range Interpretation Code Description Data [facility](s) Supporting Document(s ) ID Date Data Source [id number] 11/03/2019 03:34:07 PM EDT [facility] Per psych note, CM to confirm patient ap pt with psychiatristCall to Dr Mateo Méndez office # [phone], office closedPati ent aware of # to call to make his own appt, psychiatry info placed on [facility] ent states his will be coming this evening to drive him homeCare Management InterventionsPCP Verified by CM: YesPalliative Care Criteria Met (RRAT>21 & CHF Dx)?: NoMode of Transport at Discharge: Other (see comment)( yanni maciel between approx5-6)Transition of Care Consult (CM Consult): Discharge Planning Physical Therapy Consult: NoOccupational Therapy Consult: NoSpeech Therapy Consul t: NoCurrent Support Network: Lives with Spouse, Own Home( [place]anca ,[phone])Confirm Follow Up Transport: FamilyThe Patient and/or Patient [...] Supporting Document(s ) ID Date Data Source [id number] 11/03/2019 02:45:48 PM EDT [facility] PHYSICAL THERAPY TREATMENTPatient: Maxwell Bray [...] Supporting Document(s ) ID Date Data Source [id number] 11/03/2019 01:09:08 PM EDT [facility] General Daily Progress NoteAdmit Date: Hospital [...] past 8 hrs: BP Temp Pulse Resp OpU18411/03/19 0752 115 /76 97.6 F (36.4 C) [...] Supporting Document(s ) ID Date Data Source [id number] 11/03/2019 10:52:30 AM EDT [facility] S/O patient has seen for follow up via V ideo . He is doing much better. Hedenies any auditory or visual hallucination any mor eHe has no suicidal or homicidal thoughtsHe reports that he sees Dr. marie every ot her weeksPt wants to follow up with Dr. Marie after dischargePlan continue on a ll current psychotropic medications Requesting bilingual case manager to confirm his a ppointment with Dr. mariebefore he discharged Please re consult if n eeded Name Value Range Interpretation Code Description Data Melani rce(s) Supporting Document(s ) ID Date Data Source [id number] 11/03/2019 07:12:34 AM EDT [facility] Bedside and Verbal shift change report cristi bolanos to Meño Rose RN (oncomingnurse) by June Ochoa RN (offgoing nurse). Repor t included the followinginformation SBAR, Kardex, Intake/Output, MAR, Recent Resul ts and Med Rec Status. Name Value Range Interpretation Code Description Data Melani rce(s) Supporting Document(s ) ID Date Data Source [id number] 11/02/2019 11:18:25 PM EDT [facility] Problem: Falls - Risk ofGoal: [...] Supporting Document(s ) ID Date Data Source [id number] 11/02/2019 07:34:02 PM EDT [facility] Bedside shift change report given to GILLIAN KEATING (oncoming nurse) by Meño Rose(offgoing nurse). Report included the following information SBAR, Kardex andIntake/Output. Name Value Range Interpretation Code Description Data [facility] rce(s) Supporting Document(s ) ID Date Data Source [id number] 11/02/2019 05:14:50 PM EDT [facility] Telehealth Progress NotePursuant to the [...] [] Telephone [x] VideoconferenceDate: 11/02/2019Account Franny mber: [id number]: Maxwell Robin [employer] Joe PROGRESS NOTE:Coordinated treatment team rounds conducted with psychiatrist, patient, nursesand/or social media director present ; dis cussions held with bilingual case manager and/or familymembers; Chart reviewed in full in cluding market research consultant notes, ancillary staffnotes, vitals and labs in [facility] EMR reviewed in full.SUBJECTIVE: Pt seen for first time on Video with my TERRY Mendy And RN , hereports less hallucinations , as they are still there in the morning But overall better since got back on vraylar told me was scheduled for ECT at [facility] but due to elective , [...] past 8 hrs: Temp Pulse Resp BP FaG568/20 1546 98.3 F (36.8 C) 84 18 [...] (LOVENOX) injection 40 mg 40 mg SubCUTAneous X06MKmlywubax Medications:C urrent Facility-Administered MedicationsMedication Dose Route Frequen [...] ENOX) injection 40 mg 40 mg SubCUTAneous X03IEHHNAEDUPF/PLAN:Continue current kalie atment as pt is stabalizingPatient [...] Supporting Document(s ) ID Date Data Source [id number] 11/02/2019 03:02:33 PM EDT [facility] General Daily Progress NoteAdmit Date: Hospital [...] (LOVENOX) injection 40 mg 40 mg SubCUTAneous C41CGmfandyyl:Patient Vitals for the past 8 hrs: BP [...] Sagittal and coronal reconstruction was performed.Uti lizing plunger shovel operator algorithm the examination was performed to optimizeimaging [...] Name Value Range Interpretation Code Description Data [facility] Document[facility]s ) ID Date Data Source [id number] 11/02/2019 07:48:14 AM EDT [facility] Verbal shift change report given to Jody wells RN (oncoming nurse) by Juliane UGALDE (offgoing nurse). Report included the following information SBAR,Kardex, Intake/Output, MAR and Recent Results Name Value Range Interpretation Code Description Data [facility] Supporting Document(s ) ID Date Data Source [id number] 11/02/2019 05:41:52 AM EDT [facility] Patient AOX3 with periodic confusion. In bed watching TV. All med's given asordered by , tolerated well. Fall precaution m easures reinforced. Call bellwithin reach, bed in low position. Has urinal and comm ode at bedside. Voices nocomplaint at this time. Will continue to monitor pt. Name Value Range Interpretation Code Description Data [facility] Supporting Document(s ) ID Date Data Source [id number] 11/01/2019 08:46:30 PM EDT [facility] Problem: Falls - Risk ofGoal: [...] Supporting Document(s ) ID Date Data Source [id number] 11/01/2019 08:00:09 PM EDT [facility] Verbal shift change report given to Ly vitale RN (oncoming nurse) by SUSI Palacio (offgoing nurse). Report included the following information SBAR,Intake/Output, MAR and Recent Results. Name Value Range Interpretation Code Description Data Melani rce(s) Supporting Document(s ) ID Date Data Source [id number] 11/01/2019 03:49:42 PM EDT [facility] Adult Progress NoteDate: 11/01/2019Account Number: [id number]: Maxwell Mendieta TrimbleDiagnosis: History of mood and [...] On e Bipolar disorder with severe depression ([facility]) 10/29/2019 Mixed anxiety and depr essive disorder 09/04/2019 Vitamin D deficiency 09/04/2019 Anxiety 0 Bipolar disorder ([facility]) 07/21/2019 Depressive disorder 07/21/2019 Status p ost gastric bypass for obesity 07/21/2019 Morbid obesity ([facility]) 07/21/2019 Severe obesity ([facility]) 07/19/2018 Spells 04/08/2016 Seizure disorder ([facility]) 04/30/2014 Insom kacey 11/04/2013 H/O gastric [...] (LOVENOX) injection 40 mg 40 mg SubCUTAneous Y63RXvm following information was reviewed and discussed: Patient [...] Supporting Document(s ) ID Date Data Source [id number] 11/01/2019 02:42:08 PM EDT [facility] Daily Progress NoteAdmit Date: Hospital [...] past 8 hrs: BP Temp Pulse Resp [id number]/01/19 0715 101/67 98 F (36.7 C) 70 [...] Sagittal and coronal reconstr uction was performed.Utilizing plunger shovel operator algorithm the examination was performed to optimizeimaging [...] Prominent interstitial markings arefelt to reflect vascular crossing flagman 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 Repeat PA andlateral views the chest are advised i f there is clinical concern for pneumoniaor congestive failure.Assessment:Active Pro blems: Bipolar disorder with severe depression (HCC) (10/29/2019)Plan:Improvin g status Name Value Range Interpretation Code Description Data [facility](s) Supporting Document(s ) ID Date Data Source [id number] 11/01/2019 07:08:12 AM EDT [facility] Verbal shift change report given to Chandrakant Albert RN (oncoming nurse) byMelanie Hoffmann RN (offgoing nurse). Report incl uded the following informationSBAR, Kardex, Intake/Output, MAR and Recent Results. Name Value Range Interpretation Code Description Data [facility](s) Supporting Document(s ) ID Date Data Source [id number] 10/31/2019 07:59:03 PM EDT [facility] Verbal shift change report given to Shreya adrian RN (oncoming nurse) by SUSI Palacio (offgoing nurse). Report included the following information SBAR,Kardex, Intake/Output, MAR and Recent Results. Name Value Range Interpretation Code Description Data [facility](s) Supporting Document(s ) ID Date Data Source [id number] 10/31/2019 05:09:32 PM EDT [facility] Telehealth ConsultationPursuant to the e [...] [] Telephone [x] VideoconferenceSubjective:Patient: Maxwell BrayN #: [id number]: [id number]: 49 y.o. Sex: maleAdm it Date: 10/29/2019Attending: [...] week Gets together: Once a week Attends mormon service: More than 4 times per year [...] morbidity or mortal ity cardiac cath at [facility] approx 6-8 months ago Other [...] past 8 hrs: BP Temp Pulse Resp LuT92510/31/19 0754 120/60 97.2 F (36.2 C) 70 20 95 %MENTA L STATUS EXAM:FINDINGS WITHIN NORMAL LIMITS (WNL) UNLESS OTHERWISE STATED BELOW:Sens orium [id number] Well relatedAppearance: OverweightMotor Behavior: Not examined Speech: [...] Supporting Document(s ) ID Date Data Source [id number] 10/31/2019 04:37:18 PM EDT [facility] - [place] [address] [place], [place] [address]YPJMOZV: MAXWELL BRAYMRN: [id number]: [id number]#: [id number] DATE: 10/29/2019 CONSULTATIONHISTORY OF PRESENT ILLNESS: The [...] and Klonopin.PAST MEDICAL HISTORY: Cardiac cath at [facility] six to eight months ago, [...] back [facility].Cognitively,he seems to be fair. His memory to [...] RONAL AGUIRRE, MDDD: 10/30/2019 14:44:41/BR /[id number] / [id number] Name Value Range Interpretation Code Description Data Melani rce(s) Supporting Document(s ) ID Date Data Source [id number] 10/31/2019 01:47:36 PM EDT [facility] Daily Progress NoteAdmit Date: Hospital [...] Supporting Document(s ) ID Date Data Source [id number] 10/31/2019 12:59:26 PM EDT [facility] physical Therapy TREATMENTPatient: Maxwell Bray [...] Supporting Document(s ) ID Date Data Source [id number] 10/31/2019 07:10:46 AM EDT [facility] Bedside and Verbal shift change report g cici to Samy UGALDE (oncoming nurse)by Cristofer Valenzuela RN (offgoing nurse). Repo rt included the following information SBAR, Kardex, MARand Recent Results. Name Value Range Interpretation Code Description Data Melani rce(s) Supporting Document(s ) ID Date Data Source [id number] 10/30/2019 11:27:14 PM EDT [facility] Problem: Falls - Risk ofGoal: [...] Supporting Document(s ) ID Date Data Source [id number] 10/30/2019 08:09:55 PM EDT [facility] Susi Garcia called as pt [...] be ordered as non formulary also At [facility] Name Value Range Interpretation Code Description Data Melani rce(s) Supporting Document(s ) ID Date Data Source [id number] 10/30/2019 08:06:30 PM EDT [facility] Telephoned Dr. Oc tompkins pt's c/o new sy mptoms of hallucinations. Orderedreceived, relayed to RN, SUSI Marroquin on director supply chain Name Value Range Interpretation Code Description Data Melani rce(s) Supporting Document(s ) ID Date Data Source [id number] 10/30/2019 08:01:35 PM EDT [facility] Verbal shift change report given to Cecilia wells (oncoming nurse) by Samy Albert RN (offgoing nurse). Report included the fo llowing information SBAR, ProcedureSummary, Intake/Output, MAR and Recent Results. Name Value Range Interpretation Code Description Data Melani rce(s) Supporting Document(s ) ID Date Data Source [id number] 10/30/2019 02:58:51 PM EDT [facility] Problem: Mobility Impaired (Adult and [...] of morbidity or mortality cardiac cath at [facility] approx 6-8 months ago Other unknown [...] Home: NoneCritical Behavior:Neurologic State: AlertOrientation Level: Oriented I1Vpyispbwk: Appropriate for age attention/concentrationSafety/Judgement: Awareness of environmentSkin:Strength:Strength: [...] Supporting Document(s ) ID Date Data Source [id number] 10/30/2019 02:50:37 PM EDT [facility] Telehealth ConsultationPursuant to the e [...] [] Telephone [] VideoconferenceSubjective:Patient: Maxwell BrayMRN #: [id number]: [id number]: 49 y.o. Sex: maleAdm it Date: 10/29/2019Attending: [...] Supporting Document(s ) ID Date Data Source [id number] 10/30/2019 02:06:26 PM EDT [facility] Care Management InterventionsPCP Verifie d by CM: YesPalliative Care Criteria Met (RRAT>21 & CHF Dx)?: NoMode of Transport at Discharge: Other (see comment)(family)Transition of Care Consu lt (CM Consult): Discharge PlanningPhysical Therapy Consult: NoOccupational Therapy Consult: NoSpeech Therapy Consult: NoCurrent Support Network: Lives with Spouse, Own Home( [place]anca [phone],[phone])Confirm Foll ow Up Transport: FamilyThe Patient and/or Patient Beam Dyer Operator was Provided with a Choice of [...] home with his , is completely independent [employer]AREPOINT APPLICATION ARCHITECT, nohome DME. Patient normally works (pre-covid) and drives. CM dept roleexplained, patient is currently denying any HC or rehab needs and states hiswife will drive him home upon DC. PT eval is ordered and pending. CM dept laila lfollow if patient has any PT needs.CASE MANAGEMENT PSYCHOSOCIAL ASSESSMENTMaxwell Bray Admission Date: 10/29/2019MRN: [id number] of : 1970Current date: 10/30/2019DISCHARGE PLAN: homePatient Info rmation:Patients Preferred Name: Tim Arrived Via: StretcherTransferred from a [facility]: NoInformation Obtained From: PatientPatient Objects to Receiving Bloo d: NoMRSA Assessment: Not applicableAuditory Impairment: NoneRetired Read Only-Readmi t Risk ToolSupport Systems: Family member(s)History of Falls Within Past 3 Months: NoNeeds Assistance with Wound Care AND/OR Mgnt of O2, Nebulizer: NoRequires Financial, Physical and/or Educational Assistance With Medications: NoHistory o f Mental Illness: NoLiving Alone: NoPCP: Ritika Canas MDAdmitting Provider: Cristi Canas MDSENTARA [facility] SHAREPOINT APPLICATION ARCHITECT: naPayor: Payor: [facility] / Plan: [facility] /Product Type: O /[facility] Payor: @[email or web address]@Bipolar disorder with severe depression (HCC) [F 31.4]Bipolar disorder with severe depression (HCC) [F31.4]Patient Active Problem List Diagnosis Code H/O gastric bypass Z98.84 Insomnia G47.00 Neuropathic pain of surekha glover M79.2 Seizure disorder ([facility]) G40.909 Spells R68.89 Severe obesity ([facility]) E66. 01 Depression F32.9 Anxiety F41.9 Bipolar disorder ([facility]) F31.9 Depressive disorde r F32.9 Status post gastric bypass for obesity Z98.84 Morbid obesity ([facility]) E66 .01 Mixed anxiety and depressive disorder [...] solving and planning: Notes:Adeq uate coping skills: Notes:Moravian/Cultural barriers: Notes:If unable to assess or n [...] Supporting Document(s ) ID Date Data Source [id number] 10/30/2019 12:38:13 PM EDT [facility] General Daily Progress NoteAdmit Date: Hospital day: .tdSubjective:Patient markedly improved this am, speech now no rmal. Denies possibleinadvertent overdose of chronic meds. Accepting of psych consult . PT toevaluate. Claims symptoms of mild nausea. Meds reviewed claims to be takin gElavil G 150 mg HS ,Klonopin 1 mg twice a day, [place] 300 twice daily, Vraylar3 m g dailyCurrent [...] past 8 hrs: BP Temp Pulse Resp AyC13710/30/19 0727 (!) 130/96 98 F (36.7 C) [...] Supporting Document(s ) ID Date Data Source [id number] 10/30/2019 07:52:05 AM EDT [facility] Verbal shift change report given to Chandrakant nemarie RN (oncoming nurse) byJosemarlie RN (offgoing nurse). Report included the [facility] information SBAR,Kardex, Procedure Summary, Intake/Output, MAR and Recent R esults. Name Value Range Interpretation Code Description Data Melani rce(s) Supporting Document(s ) ID Date Data Source [id number] 10/30/2019 06:40:05 AM EDT [facility] Pt. AOX3, periodic confusion. Commode an d urinal at bedside. Seizure and fallprecaution measures in place. Voice s no complaint during shift . Name Value Range Interpretation Code Description Data Melani rce(s) Supporting Document(s ) ID Date Data Source [id number] 10/30/2019 07:29:12 AM EDT [facility] Name Value Range Interpretation Description Data Sup porting Code Source(s) Document(s ) Sodium 139 136-145 [facility] - Good [Moles/volume] mmol/L [facility] in Serum or Hospital Plasma Potassium 3.6 3.5-5.1 [facility] - Good [Moles/volume] mmol/L [facility] in Serum or Hospital Plasma Chloride 110 98-107 Above high normal [facility] - Good [Moles/volume] mmol/L [facility] in Serum or Hospital Plasma Carbon 24 21-32 [facility] - Good dioxide, total mmol/L [facility] [Moles/volume] Hospital in Serum or Plasma Anion gap in 9 mmol/L 10-20 Below low normal [facility] - Go od Serum or [facility] Plasma Hospital Glucose 96 mg/dL 74-106 [facility] - Good [Mass/volume] [facility] in Serum or Hospital Plasma Urea nitrogen 10 mg/dL 7-18 [facility] - Good [Mass/volume] [facility] in Serum or Hospital Plasma Creatinine 0.81 0.70-1.3 [facility] - Good [Mass/volume] mg/dL 0 [facility] in Serum or Hospital Plasma Glomerular >60 [facility] - Good filtration [facility] rate/1.73 sq M Hospital predicted among blacks [Volume Rate/Area] in Serum or Plasma by Creatinine-bas ed formula (MDRD) Glomerular >60 [facility] - Good filtration [facility] rate/1.73 sq M Hospital predicted among non-blacks [Volume Rate/Area] in Serum or Plasma by Creatinine-bas ed formula (MDRD) Calcium 8.2 8.5-10.1 Below low normal [facility] - Good [Mass/volume] mg/dL [facility] in Serum or Hospital Plasma ID Date Data Source [id number] 10/30/2019 07:05:07 AM EDT [facility] - Good [facility] Name Value Range Interpretation Description Data Sup porting Code Source(s) Document(s ) Leukocytes 4.8 K/uL 4.8-10.6 [facility] - [#/volume] in Good Blood by [facility] Automated count Hospital Erythrocytes 4.59 4.70-6.0 Below low normal [facility] - [#/volume] in M/uL 0 Good Blood by [facility] Automated count [facility] Hemoglobin 14.0 14.0-18. [facility] - [Mass/volume] in g/dL 0 Good Blood [facility] Hematocrit 42.7 % 42.0-52. [facility] - [Volume 0 Good Fraction] of [facility] Blood by Hospital Automated count Erythrocyte mean 93.0 FL 81.0-94. [facility] - corpuscular 0 Good volume [Entitic [facility] volume] by [facility] Automated count Erythrocyte mean 30.5 PG 27.0-35. [facility] - corpuscular 0 Good hemoglobin [facility] [Entitic mass] Hospital by Automated count Erythrocyte mean 32.8 30.7-37. [facility] - corpuscular g/dL 3 Good hemoglobin [facility] [Mass/volume] by Automated count Erythrocyte 13.3 % 11.5-14. [facility] - distribution 0 Good width [Ratio] by [facility] Automated count [facility] Platelets 159 K/uL 130-400 [facility] - [#/volume] in Good Blood by [facility] Automated count [facility] Platelet mean 8.6 FL 9.2-11.8 Below low normal [facility] - volume [Entitic Good volume] in Blood [facility] by Automated Hospital count Nucleated 0.0 PER 0 [facility] - erythrocytes/100 100 WBC Good leukocytes [facility] [Ratio] in Blood [facility] Nucleated 0.00 0.0-0.01 [facility] - erythrocytes K/uL Good [#/volume] in [facility] Blood [facility] Segmented 54 % 48.0-72. [facility] - neutrophils/100 0 Good leukocytes in [facility] Lymphocytes/100 32 % 18.0-40. [facility] - leukocytes in 0 [facility] Monocytes/100 9 % 2.0-12.0 [facility] - leukocytes in [facility] Eosinophils/100 5 % 0.0-7.0 [facility] - leukocytes in [facility] Basophils/100 1 % 0.0-3.0 [facility] - leukocytes in [facility] Immature 0 % 0-0.5 [facility] - granulocytes/100 Good leukocytes in [facility] by [facility] Automated count Segmented 2.6 K/UL 2.3-7.6 [facility] - neutrophils Good [#/volume] in [facility] Lymphocytes 1.5 K/UL 0.9-4.2 [facility] - [#/volume] in [facility] Monocytes 0.4 K/UL 0.1-1.7 [facility] - [#/volume] in [facility] Eosinophils 0.2 K/UL 0.0-1.0 [facility] - [#/volume] in [facility] Basophils 0.0 K/UL 0.0-0.4 [facility] - [#/volume] in [facility] Immature 0.0 K/UL 0.0-0.17 [facility] - granulocytes Good [#/volume] in [facility] Automated count Differential [facility] - cell count [facility] method [facility] ID Date Data Source [id number] 10/29/2019 07:40:21 PM EDT [facility] Verbal shift change report given to Wai rogers RN(oncoming nurse) by Elizabeth Meehan RN (offgoing nurse). Report included the fo llowing information SBAR, Kardex, EDSummary, Intake/Output, MAR and Recent Results. Name Value Range Interpretation Code Description Data Melani rce(s) Supporting Document(s ) ID Date Data Source [id number] 10/30/2019 06:54:22 PM EDT [facility] Name Value Range Interpretation Description Data Sup porting Code Source(s) Document(s ) Color of Urine YEL [facility] Appearance of CLEAR [facility] - Urine [facility] Specific gravity 1.015 1.003-1. [facility] - of Urine by 030 Good Refractometry [facility] pH of Urine by 6.0 4.6-8.0 [facility] - Test strip [facility] Protein NEG [facility] - [Mass/volume] in Good Urine by Test [facility] Glucose NEG [facility] - [Mass/volume] in Good Urine by [facility] Automated test Hospital strip Ketones NEG [facility] - [Presence] in Good Urine by [facility] Automated test Hospital strip Bilirubin.total NEG [facility] - [Presence] in Good Urine [facility] Hemoglobin NEG [facility] - [Presence] in Good Urine by Test [facility] Urobilinogen 1.0 0.2-1.0 [facility] - [Presence] in EU/dL Good Urine by [facility] Automated test Hospital strip Nitrite NEG [facility] - [Presence] in Good Urine by [facility] Automated test Hospital strip Leukocyte NEG [facility] - esterase Good [Presence] in [facility] Urine by Hospital Automated test strip ID Date Data Source [id number] 10/29/2019 06:14:12 PM EDT [facility] Spoke with to clarify meds..correct doses obtained Name Value Range Interpretation Code Description Data Melani rce(s) Supporting Document(s ) ID Date Data Source [id number] 10/29/2019 06:01:22 PM EDT [facility] Pt unsure of dose of Vraylar will call w berta Name Value Range Interpretation Code Description Data Melani rce(s) Supporting Document(s ) ID Date Data Source [id number] 10/29/2019 03:56:40 PM EDT [facility] [id number] [employer] [facility] [facility] [employer] [address] [place] [address] [place] [address] [phone] Maxwell Bray (Male) [id number] ES I 2 ED Dispo:ADMIT Chief Complaint: Dysarthria, Lethargy Diagnosis: Altered mental status, unspecified altered mental statu s type [] Bipolar disorder with severe depression (HCC) [] Current Providers: Att ending: Cole Ernandez; Cristi Canas Consulting Provider: Cristi Canas Primary Nurse: Kristy Moss Tech: HERMANN GonzalesN: [phone] [employer] [phone] - Bs hsi [employer] MrnMRN: [id number] [employer] [phone] - [employer]sh[employer] Age Sex 1970 AGE 49 SEX Male Primary Care Provider: Ritika Canas MD Gevcbdvnu: (No Kn own Allergies)Date Reviewed: 10/29/2019Reviewed by: Ritika Canas MD - Review CompleteED Provider Notes: All no tesHNO ID: [id number]: Cristobal Ernandez MDService: -Author Type: PhysicianFiled: 10/29/19 [...] of morbidity or mortality cardiac cath at [facility] approx 6-8 months ago Other [...] week Gets together: Once a week Attends mormon service: More than 4 times per year [...] QTC Calculation (Bezet) 446 ms Calculated P [place] 53 degrees Calc ulated R [place] 68 degrees Calculated T [place] 0 degrees Diagnosis Sinus tachycardiaProlonged [place] intervalNo nspecific intraventricular conduction delayCBC WITH AUTOMATED [...] Time: 10/29/19 10:45 AMResult Value Ref Range [place] level <0.20 (L) 0.6 - 1.2 MMOL/L [...] contrast. Sagittal and coronalreconstruction was performed. Utilizing plunger shovel operator algorithm theexaminationwas performed to optimize imaging quality [...] status, unspecified altered menta l status type [id number] condition at time of disposition: StableI have [...] d thediagnostic studies, unless otherwise noted.+ED Orders [id number] CBC WITH AUTOMATED DIFF [# [id number]] Priority: STAT Class: ER Collect Standing Order Information Remaining Occurrences:0 /1 Interval:ONE TIME Last released:10/29/2019 Released orders: SunOctober 29, 2019 11:02 AM by: CRISTOBAL ERNANDEZ [id number] METABOLIC PANEL, COMPREHENSIVE [#[id number]] Bridgette ority: STAT Class: ER Collect Standing Order Information Remaining Occurrences:0/1 Inter haile:ONE TIME Last released:10/29/2019 Released orders: SunOctober 29, 2019 11:02 AM by: CRISTOBAL WADE [id number] PROTHROMBIN TIME + INR [#[id number]] Priority: STAT Class: E R Collect Standing Order Information Remaining Occurrences:0/1 Interval:ONE TI ME Last released:10/29/2019 Released orders: SunOctober 29, 2019 11:02 AM by: BRIE ERNANDEZ EN [id number] PTT [#[id number]] Priority: STAT Class: ER Collect Speci men Source: Blood Standing Order Information Remaining Occurrences:0/1 Interval:ONE TI ME Last released:10/29/2019 Released orders: SunOctober 29, 2019 11:02 AM by: BRIE ERNANDEZ [id number] URINALYSIS W/ RFLX MICROSCOPIC [#[id number]] Priority: STAT Class: ER Collect Sta nding Order Information Remaining Occurrences:0/1 Interval:ONE TIME Last released:0 10/29/2019 Released orders: SunOctober 29, 2019 11:02 AM by: CRISTOBAL ERNANDEZ [id number] LITHIUM [#[id number]] Priority: STAT Class: ER Collect Standing Order Information Remaining Occurrences:0 Interval:ONE TIME Last released:10/29/2019 Released orders : SunOctober 29, 2019 11:02 AM by: CRISTOBAL ERNANDEZ [id number] CBC WITH AUTOMATED DIFF [# [id number]] Priority: STAT Class: ER Collect Specimen Source: Whole Blood Specimen Collected: 020 10:45 AM Resulting Agency: [facility] Test ID: [id number] Released on: 0 11:02 AM [id number] METABOLIC PANEL, COMPREHENSIVE [#[id number]] Priority: STAT Class: E R Collect Specimen Source: Plasma Specimen Collected: 10/29/2019 10:45 AM Resulting Agency: [facility] Test ID: MPL Released on: 10/29/2019 11:02 AM [id number] PROTHROMBIN TIME + IN R [#[id number]] Priority: STAT Class: ER Collect Specimen Source: Plasma Specimen Collec hyun: 10/29/2019 10:45 AM Resulting Agency: [facility] Test ID: APTHR Released o n: 10/29/2019 11:02 AM [id number] PTT [#[id number]] Priority: STAT Class: ER Collect Specimen Source: Plasma Specimen Collected: 10/29/2019 10:45 AM Resulting Agency: [facility] Test ID: APTT Released on: 10/29/2019 11:02 AM [id number] URINALYSIS W/ RFLX NC CROSCOPIC [#[id number]] Priority: STAT Class: ER Collect Resulting Agency: [facility] Test ID: UA Released on: 10/29/2019 11:02 AM [id number] LITHIUM [#[id number]] Priority: STAT Class: ER Collect Specimen Source: Serum Specimen Collected: 10/28 10:45 AM Resulting Agency: [facility] Test ID: LI Released on: 10/29/2019 11:02 AM [id number] CBC WITH AUTOMATED DIFF [#[id number]] Priority: STAT Class: E R Collect Standing Order Information Remaining Occurrences:06/25 Interval:TOMORR OW AM [id number] METABOLIC PANEL, BASIC [#[id number]] Priority: STAT Class: ER Collect St anding Order Information Remaining Occurrences:1/1 Interval:TOMORROW AM [id number] CT HEAD W O CONT [#[id number]] Priority: Routine Class: Hospital Performed Standing Or mariano Information Remaining Occurrences:0/1 Interval:ONE TIME Last released:10/29/2019 Released orders: SunOctober 29, 2019 11:02 AM by: CRISTOBAL ENRANDEZ Reason for Exam -> ams IMG 2590 XR CHEST PORT [#[id number]] Priority: STAT Class: Hospital Performe d Standing Order Information Remaining Occurrences:0/1 Interval:ONE TIME Last release d:10/29/2019 Released orders: SunOctober 29, 2019 11:02 AM by: CRISTOBAL ERNANDEZ Reason for Exam -> ams [id number] CT HEAD WO CONT [#[id number]] Priority: STAT Class: Hospital Perfo rmed Specimen Collected: 10/29/2019 11:54 AM Resulting Agency: [facility] Test ID: [id number] Ponce son for Exam -> ams Released on: 10/29/2019 11:02 AM [id number] XR CHEST PORT [#[id number]] Priority: STAT Class: Hospital Performed Specimen Collected: 10/29/2019 12:16 PM Resultin g Agency: [facility] Test ID: [id number] Reason for Exam -> ams Released on: 10/29/2019 11:02 AM [id number] EKG, 12 LEAD, INITIAL [#[id number]] Priority: STAT Class: Hospital Performe d Standing Order Information Remaining Occurrences:0/1 Interval:ONE TIME Last release d:10/29/2019 Released orders: SunOctober 29, 2019 11:02 AM by: CRISTOBAL ERNANDEZ Reason for Exam : -> chest pain [id number] EKG, 12 LEAD, INITIAL [#[id number]] Priority: STAT Class: H ospital Performed Resulting Agency: [facility] Test ID: [id number] Reason for Exam: -> chest pain Releas ed on: 10/29/2019 11:02 AM [id number] POC GLUCOSE [#[id number]] Priority: STAT Cl ass: Hospital Performed Standing Order Information Remaining Occurrences:0/1 Interval:ONE TI ME Last released:10/29/2019 Released orders: SunOctober 29, 2019 11:02 AM by: BRIE ERNANDEZ EN [id number] POC GLUCOSE [#[id number]] Priority: STAT Class: Hospital Performe d Released on: 10/29/2019 11:02 AM [id number] VITAL SIGNS PER UNIT ROUTINE [#[id number]] Priorit y: STAT Class: Hospital Performed Standing Order Information Remaining Occurrences:0/1 Inte rval:CONTINUOUS Last released:10/29/2019 Released orders: SunOctober 29, 2019 2:54 PM by: RITIKA CANAS Comment:More frequently if Indicated. [id number] BEDREST, COMPLETE [#[id number]] Priority: STAT Class: Hospital Performed Standing Order Information Remainin g Occurrences:0/1 Interval:CONTINUOUS Last released:10/29/2019 Released orders : SunOctober 29, 2019 2:54 PM by: RITIKA [id number] NOTIFY PROVIDER: VITAL SIGNS CHANGES [# [id number]] Priority: STAT Class: Hospital Performed Standing Order [...] Less than 120 ml in 4 hours [id number] APPLY/MAINTAIN SEQUENTIAL COMPRESSIO* [#[id number]] Priority: ST AT Class: Hospital Performed Standing Order Information Remaining Occurrences:0/1 Inter haile:CONTINUOUS Last released:10/29/2019 Released orders: SunOctober 29, 2019 2:54 PM by: RITIKA CANAS [id number] VITAL SIGNS PER UNIT ROUTINE [#[id number]] Priority: STAT Class: H ospital Performed Comment:More frequently if Indicated. Released on: 10/29/2019 2:54 PM [id number] BEDREST, COMPLETE [#[id number]] Priority: STAT Class: Hospital Performed Relea sed on: 10/29/2019 2:54 PM [id number] NOTIFY PROVIDER: VITAL SIGNS CHANGES [#[id number]] Priority: STAT Class: Hospital Performed Temp -> [...] carmen rs Released on: 10/29/2019 2:54 PM [id number] APPLY/MAINTAIN SEQUENTIAL COMPRESSIO* [#[id number]] P riority: STAT Class: Hospital Performed Released on: 10/29/2019 2:54 PM SODIUM CHLORIDE 0.9 % IJ SYRG [#[id number]] Priority: STAT Class: Normal SODIUM CHLORIDE 0.9 % IJ SYRG [#[id number]] Priority: STAT Class: Normal ACETAMINOPHEN 325 MG TABLET [# [id number]] Priority: STAT Class: Normal ENOXAPARIN 40 MG/0.4 ML SUB-Q SYRINGE [#[id number]] Priority: STAT Class: Normal SODIUM CHLORIDE 0.9 % IV [#[id number]] Priority: STAT Class: Normal [id number] GLUCOSE, POC [#[id number]] Priority: Routine Class : ER Collect Resulting Agency: [facility] Test ID: BGG Standing Order Informati on Remaining Occurrences:0/1 Released orders: SunOctober 29, 2019 11:26 AM by: Automatic [facility] Process [id number] GLUCOSE, POC [#[id number]] Priority: Routine Class : ER Collect Specimen Source: Whole Blood Specimen Collected: 10/29/2019 11:26 AM Resulting Agency: [facility] Test ID: BGG Released on: 10/29/2019 11:26 AM [id number] IP CONSULT TO PRIMARY CARE PROVIDER [#[id number]] Priority: STAT Class: Hospital Performed Standing Order Inf ormation Remaining Occurrences:0 Interval:ONE TIME Last released:10/29/2019 Relea sed orders: SunOctober 29, 2019 12:59 PM by: CRISTOBAL ERNANDEZ Reason for Consult: -> admit Did you call or speak to the consulting provider? -> No Consult To -> dr canas [id number] IP CONSULT TO PRIMAR Y CARE PROVIDER [#[id number]] Priority: STAT Class: Hospital Performed Reason for Consult: -> ad rei Did you call or speak to the consulting provider? -> No Consult To -> dr canas Released on: 12:59 PM CON53 IP CONSULT TO PSYCHIATRY [#[id number]] Priority: STAT Class: H ospital Performed Standing [...] -> TODAY CON53 IP CONSULT TO PSYCHIATRY [#[id number]] Priority: STAT Class: Hospital Performed Reason for Consult: -> 49 yo male with severe bipolar diseas e, admitted with slurred speech, severe weakness Did you call or speak to t he consulting provider? -> No Consult To -> Dr Aguirre Schedule When? -> TODAY Released on: 10/29/2019 2:54 PM [id number] INITIAL PHYSICIAN ORDER: INPATIENT [#[id number]] Priority: Routine Class : ADT Pend Transfer [...] Discharge Plan: -> Home with Office Follow-up [id number] INITIAL PHYSICIAN ORDER: INPATIENT [# [id number]] Priority: Routine Class: ADT Pend Transfer Status: [...] Foll ow-up Released on: 10/29/2019 2:43 PM [id number] INITIAL PHYSICIAN ORDER: INPATIENT [#[id number]] Priority: Routine Class: ADT Pend Transfer [...] 3-4 Midnights Discharge Plan: -> Other (Specify) [id number] INITIAL PHYSIC JOSE ORDER: INPATIENT [#[id number]] Priority: Routine Class: ADT Pend Transfer Status: [...] 2:54 PM IVT3 INSERT PERIPHERAL IV [# [id number]] Priority: STAT Class: Hospital Performed Standing Order Information Remaining Occurre nces:0/ Interval:ONE TIME Last released:10/29/2019 Released orders: SunOctober 28, 020 2:54 PM by: RITIKA CANAS IVT3 INSERT PERIPHERAL IV [#[id number]] Priority: ST AT Class: Hospital Performed Released on: 10/29/2019 2:54 PM CON75 IP CONSULT TO PHYSICAL THERAPY [#[id number]] Priority: STAT Class: Hospital Performed Standing Order Information Remainin g Occurrences: Interval:DAILY Last released:10/29/2019 Released orders : SunOctober 29, 2019 2:54 PM by: RITIKA CANAS CON75 IP CONSULT TO PHYSICAL THERAPY [#[id number]] Priority: STAT Class: Hospital Performed Released on: 10/29/2019 2:54 PM COD2 FULL CODE [#[id number]] Priority: STAT Class: Hospital Performed Standing Order Inf ormation Remaining Occurrences:0/1 Interval:CONTINUOUS Last released:10/29/2019 Rel eased orders: SunOctober 29, 2019 2:54 PM by: RITIKA CANAS COD2 FULL CODE [#[id number]] Priority: STAT Class: Hospital Performed Released on: 10/29/2019 2:54 PM [id number] 4 DIET FULL LIQUID [#[id number]] Priority: STAT Class: Hospital Performed Stand ing Order Information Remaining Occurrences:0/1 Interval:DIET EFFECTIVE NOW Last released:10/29/2019 Released orders: SunOctober 29, 2019 2:54 PM by: RITIKA CANAS Comment:A dvance as tolerated to regular diet [id number] DIET FULL LIQUID [#[id number]] Priority: STAT Class: Hospital Performed Comment:Advance as tolerated to regular diet Released on: 10/29/2019 2:54 Maxwell Corona MR#: [id number] * Rm: 416-02Ht: 5' 7" Wt: 3 00 lb Code: Full Code Iso:Diagnosis:Bipolar disorder with severe depression (HCC) [F31.4]Allergies : No Known Allergies -------- Current as of: 10/29/19 1556 ---aspirin (ASPIRIN) tablet 325 mg #[id number] Admin Amount: 1 Tab (1 x 325 mg Tab) Ordered Dose: 325 mg Route: Oral Freq: ONCE Start Date: 12/24/13 No administration times (back 96 hours, ahead 96 hours). ------diphenhydrAMINE (BENADRYL) capsule 50 mg #[id number] Admin Amount: 1 Cap (1 x 50 mg Cap) Ordered Dose: 50 mg Ro gambell: Oral Freq: NOW Start Date: 12/24/13 No administration times (back 96 hours, e ad 96 hours). ------diazepam (VALIUM) tablet 5 mg #[id number] Admin Amount: 1 Tab (1 x 5 mg Tab) Ordered Dose: 5 mg Route: Ora l Freq: ONCE Start Date: 12/24/13 No administration times (back 96 hours, e ad 96 hours). ------lidocaine (XYLOCAINE) 10 mg/mL (1 %) injection 1-30 mL #[id number] Admin Amount: 1-30 mL Ordered Dose: 1-30 mL Route: IntraDERMal Freq: ONC E Start Date: 12/24/13 No administration times (back 96 hours, ahead 96 hours). ------heparin (PF) 2 units/ml in NS infusion 2,000 Units #[id number] Admin Amount: 1,000 mL = 2,000 Units of 2 Units/mL Ordered Dose: 1,000 mL Route: Irrigation Freq: ONCE Start Date: 12/24/13 No administration times (b ack 96 hours, ahead 96 hours). ------heparinized saline 2 units/mL infusion 1,000 Units #[id number] Admin Amount: 500 mL = 1,000 Units of 2 Units/mL Ordered Dose: 500 mL R oute: IntraarTERial Freq: ONCE Start Date: 12/24/13 No administration times (back 96 hours, ahead 96 hours). ------0.9% sodium chloride infusion #[id number] Ordered Dose: 75 mL/hr Route: IntraVENous Freq: CONTINUOUS Start Date: 12/24/13 Rate: 75 mL/hr Duration: No administration times (back 96 hours, ahead 96 hours). ------ioversol (OPTIRAY) 320 mg iodine/mL contrast injection 1-100 mL #[id number] Admin Amount: 1-100 mL Ordered Dose: 1-100 mL Route: IntraVENous Freq: RAD ONCE Start Date: 12/24/13 No administration times (back 96 hours, ahead 96 hours).Maxwell Bray MR#: [id number] * Rm: [id number]: 5' 7" Wt: 300 lb Code: Full Code Iso:Diagnosis:Bipolar disorder with severe depression (HCC) [F31.4]Allergies: No Kn own Allergies -------- Current as of: 10/29/19 1556 ---gadobutrol (GADAVIST) contrast solution 1-10 mL #[id number] Admin Amount: 1-10 mL Ordered Dose: 1-10 mL Route: IntraVENo us Freq: RAD ONCE Start Date: 01/13/14 No administration times (back 96 hours, ahe ad 96 hours). ------sodium chloride (NS) flush 5-10 mL #[id number] Admin Amount: 5-10 mL Ordered Dose: 5-10 mL Route: IntraVENous Freq: RA D ONCE Start Date: 01/13/14 No administration times (back 96 hours, ahead 96 hours). ------sodium chloride (NS) 0.9 % flush #[id number] Ordered Dose: Route: Freq: Start D ate: 01/13/14 No administration times (back 96 hours, ahead 96 hours). ------morphine injection 2 mg #[id number] Admin Amount: 1 mL = 2 mg of 2 mg/mL Ordered Dose: 2 mg Route: Int raVENous Freq: NOW Start Date: 03/13/15 No administration times (back 96 hours, ahe ad 96 hours). ------influenza vaccine (4 yr+)(PF) (FLUCELVAX QUAD) inj ection 0.5*#[id number] Admin Amount: 0.5 mL Ordered Dose: 0.5 mL Route: IntraMUSCular Freq : PRIOR TO DISCHARGE Start Date: 03/30/16 No administration times (back 96 hours, ahead 96 hours). ------oxyCODONE-acetaminophe n (PERCOCET) 5-325 mg per tablet 1 Tab #[id number] Admin Amount: 1 Tab Ordered Dose: 1 Tab Route: Oral Freq: NOW Start Date: 09/07/17 No administration times (back 96 hours, ahead 96 hours). ------barium sulfate (READICAT) 2.1 % (w/v), 2.0 % (w /w) oral suspension 9*#[id number] Admin Amount: 900 mL Ordered Dose: 900 mL Route: Ora l Freq: RAD ONCE Start Date: 10/15/17 No administration times (back 96 hours, ahe ad 96 hours). ------iopamidol (ISOVUE 300) 61 % contrast injection 100 mL #[id number] Admin Amount: 100 mL Ordered Dose: 100 mL Route: IntraVENous Freq: RAD O NCE Start Date: 10/15/17 No administration times (back 96 hours, ahead 96 hours).AsaArieMaxwell F MR#: [id number] * Rm: [id number]: 5' 7" Wt: 300 lb Cod e: Full Code Iso:Diagnosis:Bipolar disorder with severe depression ([facility]) [F31.4]Allergies: No Kn own Allergies -------- Current as of: 10/29/19 1556 ---risperiDONE (RisperDAL m-tabs) disintegrating tablet 1 mg #[id number] Admin Amount: 1 Tab (1 x 1 mg Tab) Ordered Dose: 1 mg Ro gambell: Oral Freq: ONCE Start Date: 12/24/17 No administration times (back 96 hours, e ad 96 hours). ------ALPRAZolam (XANAX) tablet 2 mg #[id number] Admin Amount: 4 Tab (4 x 0.5 mg Tab) Ordered Dose: 2 mg Route: Ora l Freq: NOW Start Date: 12/24/17 No administration times (back 96 hours, e ad 96 hours). ------lamoTRIgine (LaMICtal) tablet 100 mg #[id number] Admin Amount: 1 Tab (1 x 100 mg Tab) Ordered Dose: 100 mg Route: Ora l Freq: ONCE Start Date: 12/24/17 No administration times (back 96 hours, [facility] ad 96 hours). ------OLANZapine (ZyPREXA zydis) disintegrating tablet 5 mg #[id number] Admin Amount: 1 Tab (1 x 5 mg Tab) Ordered Dose: 5 mg Route: Ora l Freq: ONCE Start Date: 12/25/17 No administration times (back 96 hours, e ad 96 hours). ------LORazepam (ATIVAN) tablet 2 mg #[id number] Admin Amount: 4 Tab (4 x 0.5 mg Tab) Ordered Dose: 2 mg Route: Ora l Freq: NOW Start Date: 12/25/17 No administration times (back 96 hours, [facility] ad 96 hours). ------LORazepam (ATIVAN) injection 1 mg #[id number] Admin Amount: 0.5 mL = 1 mg of 2 mg/mL Ordered Dose: 1 mg Ro gambell: IntraVENous Freq: NOW Start Date: 12/25/17 No administration times (back 96 hours, ahead 96 hours). ------barium sulfate (EZ PAQUE) 96 % (w/w) contrast suspension 17 6 g #[id number] Admin Amount: 176 g Ordered Dose: 176 g Route: Oral Freq: RAD ONCE Start Date: 08/02/18 No administration times (back 96 hours, ahead 96 hours). ------barium sulfate (EZ PAQUE) 96 % (w/w) contrast suspension 17 6 g #[id number] Admin Amount: 176 g Ordered Dose: 176 g Route: Oral Freq: RAD ONCE Start Date: 08/02/18 No administration times (back 96 hours, ahead 96 hours).Maxwell Bray MR#: [id number] * Rm: [id number]: 5' 7" Wt: 300 lb Code: Full Co de Iso:Diagnosis:Bipolar disorder with severe depression ([facility]) [F31.4]Allergies: No Known Allergies -------- Current as of: 10/29/19 1556 ---aspirin chewable tablet 162 mg #[id number] Admin Amount: 2 Tab (2 x 81 mg Tab) Ordered Dose: 162 mg Route: Ora l Freq: NOW Start Date: 08/10/19 No administration times (back 96 hours, ahe ad 96 hours). ------0.9% sodium chloride infusion 1,000 mL #[id number] Admin Amount: 1,000 mL Ordered Dose: 1,000 mL Route: IntraVENous Freq: O NCE Start Date: 08/16/19 Rate: 1,000 mL/hr Duration: No administratio n times (back 96 hours, ahead 96 hours). ------methylPREDNISolone (PF) (Solu-MEDROL) injection 125 mg #[id number] Admin Amount: 2 mL = 125 mg of 125 mg/2 mL Ordered Dose: 125 mg Ro gambell: IntraVENous Freq: NOW Start Date: 08/16/19 No administration times (back 9 6 hours, ahead 96 hours). ------aspirin chewable tablet 162 mg #[id number] Admin Amount: 2 Tab (2 x 81 mg Tab) Ordered Dose: 162 mg Route: Ora l Freq: NOW Start Date: 08/16/19 No administration times (back 96 hours, e ad 96 hours). ------sodium chloride (NS) flush 5-40 mL #[id number] Admin Amount: 5-40 mL Ordered Dose: 5-40 mL Route: IntraVENous Freq: EV AN 8 HOURS Start Date: 10/29/19 Administration times (back 96 hours, ahead 96 hours): : 1400 2200 10/30/19: 0600 1400 2200 10/31/19: 0600 1400 2200 11/01/19: 0600 1400 2200 11/02/19: 0600 1400 ---sodium chloride (NS) flush 5-40 mL #[id number] Admin Amount: 5-40 mL Ordered Dose: 5-40 mL Route: IntraVENous Freq: NEEDED Start Date: 10/29/19 No administration times (back 96 hours, ahead 96 hours). ------acetaminophen (TYLENOL) tablet 650 mg #[id number] Admin Amount: 2 Tab (2 x 325 mg Tab) Ordered Dose: 650 mg Ro gambell: Oral Freq: EVERY 4 HOURS NEEDED Start Date: 10/29/19 No administration times (back 96 hours, [facility] ad 96 hours).Maxwell Bray MR#: [id number] * Rm: [id number]: 5' 7" Wt: 3 00 lb Code: Full Code Iso:Diagnosis:Bipolar disorder with severe depression ([facility]) [F31.4]Allergies : No Known Allergies -------- Current as of: 10/29/19 1556 ---enoxaparin (LOVENOX) injection 40 mg #[id number] Admin Amount: 0.4 mL = 40 mg of 40 mg/0.4 mL Ordered Dose: 40 mg Route: SubCUTAneous Freq: EVERY 24 HOURS Start Date: 10/29/19 Administration times (back 96 hours, ahead 96 hours): 10/29/19: 1455 10/30/19: 145410/31/19: 145411/01/19: 145411/02/19 : 1455 ---0.9% sodium chloride infusion #[id number] Ordered Dose: 100 mL/hr Route: IntraVENous Freq: [...] Supporting Document(s ) ID Date Data Source [id number] 10/29/2019 03:54:13 PM EDT [facility] History & PhysicalBrian Anam Bray [...] of morbidity or mortality cardiac cath at [facility] approx 6-8 months ag o [...] week Gets together: Once a week Attends mormon service: More than 4 times per year [...] trast. Sagittal and coronal reconstruction was performed.Utilizing plunger shovel operator alg orithm the examination was performed to [...] QTC Calculation (Bezet) 446 ms Calculated P [place] 53 degrees Calculat ed R [place] 68 degrees Calculated T [place] 0 degrees Diagnosis Sinus tachycardiaProl onged [place] intervalNonspecific intraventricular conduction delayCBC WITH AUTOMATED DIFF [...] lydia: 10/29/19 10:45 AMResult Value Ref Range [place] level <0.20 (L) 0.6 - 1.2 MMOL/L GLUCOSE, POC Collection Time: 10/29/19 11:26 AMResult Value Ref Range Glucose, bedsid e 102 65 - 110 MG/DLAll lab results for the last 24 hours reviewed.Assessment/PlanAc tive Problems: Bipolar disorder with severe depression (HCC) (10/29/2019) possible [place] dvertentoverdoseGeorge MD Corey Name Value Range Interpretation Code Description Data Melani rce(s) Supporting Document(s ) ID Date Data Source [id number] 10/29/2019 03:42:10 PM [facility]:Verbal report give [...] Supporting Document(s ) ID Date Data Source [id number] 10/29/2019 02:28:59 PM EDT [facility] The history is provided by [...] morbidity or mortal ity cardiac cath at [facility] approx 6-8 months ago Other [...] week Gets together: Once a week Attends mormon service: More than 4 times per year [...] QTC Calculation (Bezet) 446 ms Calculated P [place] 53 degr ees Calculated R [place] 68 degrees Calculated T [place] 0 degrees Diagnosis Sinus tachycar diaProlonged [place] intervalNonspecific intraventricular conduction delayCBC WIT H AUTOMATED [...] lydia: 10/29/19 10:45 AMResult Value Ref Range [place] level <0.20 (L) 0.6 - 1.2 MMOL/L [...] Sagittal and coronalreconstru ction was performed. Utilizing plunger shovel operator algorithm the examinationwas performed t o optimize [...] Supporting Document(s ) ID Date Data Source [id number] 10/29/2019 12:17:28 PM EDT [facility] XR CHEST PORTCLINICAL INDICATION PROVIDE [...] Name Value Range Interpretation Code Description Data [facility] rce(s) Supporting Document(s ) ID Date Data Source [id number] 10/29/2019 11:55:57 AM EDT [facility] CT HEAD WO CONTClinical data: amsPriors: 03/13/2015.Technique: Multiple axial images were obtained from the skullbase to the vertexwithout administration of intravenous contrast. Sagittal and coronalreconstru ction was performed. Utilizing plunger shovel operator algorithm the examinationwas performed t o optimize [...] Supporting Document(s ) ID Date Data Source [id number] 10/29/2019 11:48:34 AM EDT [facility] Name Value Range Interpretation Description Data Sup porting Code Source(s) Document(s ) Glucose 102 MG/DL 65-110 [facility] - Good [Mass/volume] [facility] in Blood by [facility] Automated test strip ID Date Data Source [id number] 10/29/2019 10:49:56 AM EDT [facility] Patient lethargic, BIBA from home for le thargy and slurred speech. Name Value Range Interpretation Code Description Data Melani rce(s) Supporting Document(s ) ID Date Data Source [id number] 10/29/2019 11:29:33 AM EDT [facility] Name Value Range Interpretation Code Description Data Supporting Source(s) Document(s ) [place] 0.6-1.2 Below low normal [facility] - Good [Moles/volum [facility] e] in Serum Hospital or Plasma ID Date Data Source [id number] 10/29/2019 11:28:52 AM EDT [facility] Name Value Range Interpretation Description Data Sup porting Code Source(s) Document(s ) Sodium 136 136-145 [facility] - Good [Moles/volume] mmol/L [facility] in Serum or Hospital Plasma Potassium 4.4 3.5-5.1 [facility] - Good [Moles/volume] mmol/L [facility] in Serum or Hospital Plasma Chloride 106 98-107 [facility] - Good [Moles/volume] mmol/L [facility] in Serum or Hospital Plasma Carbon 22 21-32 [facility] - Good dioxide, total mmol/L [facility] [Moles/volume] Hospital in Serum or Plasma Anion gap in 12 10-20 [facility] - Good Serum or mmol/L [facility] Plasma Hospital Glucose 108 74-106 Above high normal [facility] - Good [Mass/volume] mg/dL [facility] in Serum or Hospital Plasma Urea nitrogen 16 mg/dL 7-18 [facility] - Good [Mass/volume] [facility] in Serum or Hospital Plasma Creatinine 1.05 0.70-1.3 [facility] - Good [Mass/volume] mg/dL 0 [facility] in Serum or Hospital Plasma Glomerular >60 [facility] - Good filtration [facility] rate/1.73 sq M Hospital predicted among blacks [Volume Rate/Area] in Serum or Plasma by Creatinine-bas ed formula (MDRD) Glomerular >60 [facility] - Good filtration [facility] rate/1.73 sq M Hospital predicted among non-blacks [Volume Rate/Area] in Serum or Plasma by Creatinine-bas ed formula (MDRD) (NOTE)Estimated GFR is calculated using the Modification of Diet in RenalDisease (MDRD) Study equation, reported for both Americans(GFRAA) and non- Americans (GFRNA), and normalized to 1.7 5y9qatt surface area. The physician must decide which [...] 8.5-10.1 [facility] - Good Serum or Plasma [facility] Hosp ital Bilirubin.total 0.7 mg/dL 0.2-1.0 [facility] - Good [Mass/volume] in Serum or [facility] Plasma Alanine aminotransferase 30 U/L 13-61 [facility] - Good [Enzymatic activity/volume] [facility] in Serum or Plasma Aspartate aminotransferase 27 U/L 15-37 [facility] HS - Good [Enzymatic activity/volume] [facility] in Serum or Plasma by With P-5'-P Alkaline phosphatase 139 U/L 45-117 Above high [facility] - Good [Enzymatic activity/volume] normal [facility] in Serum or Plasma Protein [Mass/volume] in 7.6 g/dL 6.4-8.2 [facility] - Good Serum or Plasma [facility] Albumin [Mass/volume] in 3.9 g/dL 3.5-4.7 [facility] - Good Serum or Plasma by [facility] Bromocresol purple (BCP) dye binding method Globulin [Mass/volume] in 3.7 g/dL 1.7-4.7 [facility] - Good Serum by calculation [facility] Albumin/Globulin [Mass 1.0 0.7-2.8 [facility] - Good Ratio] in Serum or Plasma [facility] ID Date Data Source [id number] 10/29/2019 11:20:29 AM EDT [facility] Name Value Range Interpretation Description Data Sup porting Code Source(s) Document(s ) aPTT in 22.2 SEC 21.0-28. [facility] - Good Platelet poor 0 [facility] plasma by [facility] Coagulation assay Therapeutic Range = 42.0-60.0 secs ID Date Data Source [id number] 10/29/2019 11:20:29 AM EDT [facility] - Good [facility] Name Value Range Interpretation Description Data Sup porting Code Source(s) Document(s ) Prothrombin 10.3 sec 9.4-11.1 [facility] - Good time (PT) [facility] INR in 1.0 0.8-1.2 [facility] - Good Platelet poor [facility] plasma by Hospital Coagulation assay ID Date Data Source [id number] 10/29/2019 11:11:49 AM EDT [facility] - [facility] Name Value Range Interpretation Description Data Sup porting Code Source(s) Document(s ) Leukocytes 8.1 K/uL 4.8-10.6 [facility] - [#/volume] in Good Blood by [facility] Erythrocytes 5.52 4.70-6.0 [facility] - [#/volume] in M/uL 0 Good Blood by [facility] Hemoglobin 16.7 14.0-18. [facility] - [Mass/volume] in g/dL 0 Good Blood [facility] Hematocrit 51.8 % 42.0-52. [facility] - [Volume 0 Good Fraction] of [facility] Blood by [facility] Automated count Erythrocyte mean 93.8 FL 81.0-94. [facility] - corpuscular 0 Good volume [Entitic [facility] volume] by [facility] Automated count Erythrocyte mean 30.3 PG 27.0-35. [facility] - corpuscular 0 Good hemoglobin [facility] [Entitic mass] Hospital by Automated count Erythrocyte mean 32.2 30.7-37. [facility] - corpuscular g/dL 3 Good hemoglobin [facility] Hospital [Mass/volume] by Automated count Erythrocyte 13.2 % 11.5-14. [facility] - distribution 0 Good width [Ratio] by [facility] Automated count Hospital Platelets 193 K/uL 130-400 [facility] - [#/volume] in Good Blood by [facility] Automated count Hospital Platelet mean 8.6 FL 9.2-11.8 Below low normal [facility] - volume [Entitic Good volume] in Blood [facility] by Automated Hospital count Nucleated 0.0 PER 0 [facility] - erythrocytes/100 100 WBC Good leukocytes [facility] [Ratio] in Blood [facility] Nucleated 0.00 0.0-0.01 [facility] - erythrocytes K/uL Good [#/volume] in [facility] Segmented 79 % 48.0-72. Above high normal [facility] - neutrophils/100 0 Good leukocytes in [facility] Lymphocytes/100 10 % 18.0-40. Below low normal [facility] - leukocytes in 0 [facility] Blood [facility] Monocytes/100 8 % 2.0-12.0 [facility] - leukocytes in [facility] Eosinophils/100 1 % 0.0-7.0 [facility] - leukocytes in [facility] Basophils/100 0 % 0.0-3.0 [facility] - leukocytes in [facility] Immature 1 % 0-0.5 Above high normal [facility] - granulocytes/100 Good leukocytes in [facility] Hospital Automated count Segmented 6.4 K/UL 2.3-7.6 [facility] - neutrophils Good [#/volume] in [facility] Lymphocytes 0.8 K/UL 0.9-4.2 Below low normal [facility] - [#/volume] in [facility] Monocytes 0.7 K/UL 0.1-1.7 [facility] - [#/volume] in [facility] Eosinophils 0.1 K/UL 0.0-1.0 [facility] - [#/volume] in [facility] Basophils 0.0 K/UL 0.0-0.4 [facility] - [#/volume] in [facility] Immature 0.1 K/UL 0.0-0.17 [facility] - granulocytes Good [#/volume] in [facility] by [facility] Automated count Differential [facility] - cell count [facility] ID Date Data Source [id number] 09/15/2019 09:44:01 AM EDT [facility] Clinical Indications/Reason For Exam: pa [...] Supporting Document(s ) ID Date Data Source [id number] 09/15/2019 09:41:40 AM EDT [facility] THORACIC SPINE 4 views.History: Pain.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 Signing date/time: 09/15/2019 9:41 AMSigned by: CURTIS VARMA Name Value Range Interpretation Code Description Data Melani rce(s) Supporting Document(s ) ID Date Data Source [id number] 09/15/2019 09:40:53 AM EDT [facility] Clinical indications with reason for [...] Name Value Range Interpretation Code Description Data [facility] rce(s) Supporting Document(s ) ID Date Data Source [id number] 08/17/2019 08:25:20 AM [facility] History: Chest PainTechnique: Portable c hest x-ray [...] Name Value Range Interpretation Code Description Data [facility] rce(s) Supporting Document(s ) ID Date Data Source [id number] 08/16/2019 11:12:22 PM [facility] The history is provided by the patient, the EMS personnel and the spouse.Maxwell rBay is a 49-year-old male who presen ts with EMS complaining of rash toface and shortness of breath. He was referred by outpatient urgent care centerfor evaluation. 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 [...] Calculation (Bezet) 429 ms Ca lculated P [place] 36 degrees Calculated R [place] 77 degrees Calculated T [place] -24 degrees Diagnosis Sinus tachycardiaBorderline T abnormalities, [...] Time: 08/16/19 9:00 PMResult Value Ref Range [place] level 0.21 (L) 0.6 - 1.2 MMOL/LEKG: sinus tach ycardia, rate 109Radiology:CXR: no acute findings<EMERGENCY DEPARTMENT CASE [facility]>Impression/Differential Diagnosis: Allergic reaction allergic, drug reactio n,ACS, pulmonary embolismED Course: Patient presents short of breath and mildly tach ycardic complainingof new onset rash to face anterior chest and posterior chest.Plan: Labs, chest x-ray, EKG, troponin, d-dimer, prednisone, Pepcid, tcupmfpymuu79:04 PM patient verbalizes relief of symptoms rash has faded. He denies chestpain he denie s shortness of breath.Patient was advised that we cannot rule out allergic drug re action as he isrecently just restarted taking his lithium. Patient advised to discuss takinglithium with his psychiatrist as soon as possible.Patient reassessed at [facility] [place]. Feels better at present, wants to go home.Patient was told to follow up with the primary doctor in 1-2 days and return [facility] ED for any worsening severe pain, [...] time of disposition: stableI have [facility] the [facility] medications:Prior to Admission medicationsMedication Sig Start [...] 36N*ENCOUNTER 08/16/2019 10:46:05 PM EST [facility] - [facility] [id number] [facility] EMERGENCY DEPARTMENT [address] [facility] [address] [phone] Maxwell Bray (Male) [id number] I 3 ED Dispo:DISCHARGE Chief Complaint: Allergic Reaction Diagnosis: Allergic reaction, initial encounter [] Allergic reaction to drug, in itial encounter [] Current Providers: Attending: Javier Quezada Nurse Practitioner: Javier Ward Primary Nurse: LUCILLE Acuña: [phone] [id number] Print Group [phone] - [facility] MrnMRN: [id number] [employer] [phone] - [facility] Age Sex 1970 AGE 49 SEX Male Primary Care Provider: Ritika Canas MD Fouewzpnx: (No Known Allergies)Date Reviewed: 08/16/2019Reviewed by: Zahraa Prince RN - Review CompleteED Provider Notes: No not es of this type exist for this encounter.ED Orders BUPROPION XL 300 MG 24 HR TAB [#[id number]] Priority: Routine Class: Historical Med LITHIUM CARBONATE 150 MG CAP [#[id number]] Priority: Routine Class: Historical Med FAMOTIDINE 20MG + NS 10 ML IV [#[id number]] Priority: STAT Class: Normal H2RA INDICATION -> Adverse reaction/Anaphylaxis SODIUM CH LORIDE 0.9 % IV [#[id number]] Priority: STAT Class: Normal METHYLPREDNISOLONE (PF) 125 MG/2 ML * [#[id number]] Priority: STAT Class: Normal ASPIRIN 81 MG CHEWABLE TAB [# [id number]] Priority: STAT Class: Normal PREDNISONE 50 MG TAB [#[id number]] Bridgette ority: Routine Class: Normal [id number] 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 [#[id number]] Priority: STAT C lass: Hospital Performed Standing Order Information Remaining Occurrences:0/1 Interval:Contin uous Last released:08/16/2019 Released orders: Sat Aug 16, 2019 9:02 PM by: Javier POLLOCK Type: -> Bedside [id number] OBTAIN OLD EKG [#[id number]] Priority: Routi ne Class: Hospital Performed Standing Order Information Remaining Occurrences:0/1 Inter haile:ONE TIME Last released:08/16/2019 Released orders: Sat Aug 16, 2019 9:02 PM by: INDIO WARD [id number] PULSE OXIMETRY CONTINUOUS [#[id number]] Priority: STAT Class: H ospital Performed Standing Order Information Remaining Occurrences:0/1 Interval:CONTIN UOUS Last released:08/16/2019 Released orders: Sat Aug 16, 2019 9:02 PM by: Javier POLLOCK [id number] 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 [#[id number]] Priority: STAT Class: Hospital Perfo rmed Type: -> Bedside Released on: 08/16/2019 9:02 PM [id number] OBTAIN OLD EKG [#[id number]] Priority: STAT Class: Hospital Performed Released on: 08/16/2019 9:02 PM [id number] PULSE OXIMETRY CONTINUOUS [#[id number]] Priority: STAT Class: Hospital Performed Relea sed on: 08/16/2019 9:02 PM [id number] DIET NPO [#[id number]] Priority: STAT Cla ss: Hospital Performed Standing Order Information Remaining Occurrences:0/1 Interval:DIET E FFECTIVE NOW Last released:08/16/2019 Released orders: Sat Aug 16, 2019 9:02 PM by: INDIO WARD NPO options: -> With Meds [id number] DIET NPO [#[id number]] Priority: STAT Class: Hospital Performed NPO options: -> With Meds Released on: 08/16/2019 9:02 PM [id number] SALINE LOCK IV [#[id number]] Priority: STAT Class: Hospital Performe d Standing Order Information Remaining Occurrences:0/1 Interval:ONE TIME Last released: 08/16/2019 Released orders: Sat Aug 16, 2019 9:02 PM by: INDIO POLLOCK [id number] SALIN E LOCK IV [#[id number]] Priority: STAT Class: Hospital Performed Released on : 08/16/2019 9:02 PM [id number] METABOLIC PANEL, COMPREHENSIVE [#[id number]] Priority: STAT Class: E R Collect Standing Order Information Remaining Occurrences:0/1 Interval:ONE TIME Last r eleased:08/16/2019 Released orders: Sat Aug 16, 2019 9:02 PM by: INDIO POLLOCK [id number] CBC WITH AUTOMATED DIFF [#[id number]] Priority: STAT Class: ER Collect Standing Order Info rmation Remaining Occurrences:0/1 Interval:ONE TIME Last released:08/16/2019 Released orders: Sat Aug 16, 2019 9:02 PM by: INDIO POLLOCK [id number] TROPONIN I [#[id number]] Priority: STAT Class: ER Collect Standing Order Information Remaining Occurre nces:0/1 Interval:ONE TIME Last released:08/16/2019 Released orders: Sat Aug 16 9:02 PM by: INDIO POLLOCK [id number] MAGNESIUM [#[id number]] Priorit y: STAT Class: ER Collect Standing Order Information Remaining Occurrences:0/1 Inter haile:ONE TIME Last released:08/16/2019 Released orders: Sat Aug 16, 2019 9:02 PM by: INDIO WARD [id number] D DIMER [#[id number]] Priority: STAT Class: E R Collect Standing Order Information Remaining Occurrences:0/1 Interval:ONE TIME Last r eleased:08/16/2019 Released orders: Sat Aug 16, 2019 9:02 PM by: INDIO POLLOCK [id number] METABOLIC PANEL, COMPREHENSIVE [#[id number]] Priority: STAT Class: ER Collect Specimen Source: Plas ma Specimen Collected: 08/16/2019 9:00 PM Resulting Agency: [facility] Test ID: MPL Released on: 08/16/2019 9:02 PM [id number] CBC WITH AUTOMATED DIFF [#[id number]] Prior ity: STAT Class: ER Collect Specimen Source: Whole Blood Specimen Collected: 08/16/2019 9:00 PM Resultin g Agency: [facility] Test ID: [id number] Released on: 08/16/2019 9:02 PM [id number] TROPONIN I [#[id number]] Priority: STAT Class: ER Collect Specimen Source : Plasma Specimen Collected: 08/16/2019 9:00 PM Resulting Agency: [facility] Test ID: TROIP Released on: 08/16/2019 9:02 PM [id number] MAGNESIUM [#[id number]] Priority: STAT Class: ER Collect Specimen Source: Plasma Specimen Collected: 08/16/2019 9:00 PM Resultin g Agency: [facility] Test ID: [id number] Released on: 08/16/2019 9:02 PM [id number] D DIMER [#[id number]] Priority: STAT Class: ER Collect Specimen Source : Plasma Specimen Collected: 08/16/2019 9:00 PM Resulting Agency: [facility] Test ID: [id number] Released on: 08/16/2019 9:02 PM [id number] LITHIUM [#[id number]] Priority: STAT Class: ER Collect Standing Order Information Remaining Occurrences:0/1 Inter haile:ONE TIME Last released:08/16/2019 Released orders: Sat Aug 16, 2019 9:02 PM by: INDIO WARD [id number] LITHIUM [#[id number]] Priority: STAT Class: E R Collect Specimen Source: Serum Specimen Collected: 08/16/2019 9:00 PM Resulting Agency: [facility] Test ID: LI Released on: 08/16/2019 9:02 PM [id number] EKG, 12 LEAD, INITIAL [#[id number]] Priority: STAT Class: Hospital Performed Standing Order Information Remainin g Occurrences:0/1 Interval:ONE TIME Last released:08/16/2019 Released orders : [facility] Aug 16, 2019 9:02 PM by: INDIO POLLOCK Reason for Exam: -> Chest Pain [id number] EKG, 12 LEAD, INITIAL [#[id number]] Priority: STAT Class: Hospital Performed Resulting Age ncy: GSH MUSE Test ID: [id number] Reason for Exam: -> Chest Pain Released on: 08/16/2019 9:02 PM [id number] XR CHEST PORT [#[id number]] Priority: STAT Class: Hospital Performed Stand ing Order Information Remaining Occurrences:0/1 Interval:ONE TIME Last released:0 08/16/2019 Released orders: Sat Aug 16, 2019 9:02 PM by: INDIO POLLOCK Reason for Exam -> Chest Pain [id number] XR CHEST PORT [#[id number]] Priority: STAT Class: H ospital Performed Resulting Agency: [facility] Test ID: [id number] Reason for Exam -> Chest Pain Rele ased on: 08/16/2019 9:02 JORDYMaxwell waddell MR#: [id number] * Rm: [id number] Ht: 5' 10" Wt: 280 lb Code: Prior Iso:Diagnosis:Allergies: No Known Allergies -------- Current as of: 08/16/192245 GI=Given IC=IV Complet ed NB=New Bag --aspirin (ASPIRIN) tablet 325 mg #[id number] Admin Amount: 1 Tab (1 x 325 mg Tab) Ordered Dose: 325 mg Route: Oral Freq: ONCE Start Date: 12/24/13 No administration times (back 96 hours, ahead 96 hours). ------diphenhydrAMINE (BENADRYL) capsule 50 mg #[id number] Admin Amount: 1 Cap (1 x 50 mg Cap) Ordered Dose: 50 mg Route: Ora l Freq: NOW Start Date: 12/24/13 No administration times (back 96 hours, ahe ad 96 hours). ------diazepam (VALIUM) tablet 5 mg #[id number] Admin Amount: 1 Tab (1 x 5 mg Tab) Ordered Dose: 5 mg Route: Oral Freq: ON CE Start Date: 12/24/13 No administration times (back 96 hours, ahead 96 hours). ------lidocaine (XYLOCAINE) 10 mg/mL (1 %) injection 1-30 mL #[id number] Admin Amount: 1-30 mL Ordered Dose: 1-30 mL Route: IntraDERMal Freq: ONCE Start Date: 12/24/13 No administration times (back 96 hours, ahead 96 hours). ------heparin (PF) 2 units/ml in NS infusion 2,000 Units #[id number] Admin Amount: 1,000 mL = 2,000 Units of 2 Units/mL Ordered Dose: 1,000 mL Ro gambell: Irrigation Freq: ONCE Start Date: 12/24/13 No administration times (back 96 hours, ahead 96 hours). ------heparinized saline 2 units/mL infusion 1,000 Units #[id number] Admin Amount: 500 mL = 1,000 Units of 2 Units/mL Ordered Dose: 500 mL Ro gambell: IntraarTERial Freq: ONCE Start Date: 12/24/13 No administration times (back 96 hours, ahead 96 hours). ------0.9% sodium chloride infusion #[id number] Ordered Dose: 75 mL/hr Route: IntraVENous Freq: CONTINUOUS Start Date: 12/24/13 Rate: 75 mL/hr Duration: No administration times (back 96 hours, ahead 96 hours). ------ioversol (OPTIRAY) 320 mg iodine/mL contrast injection 1-100 mL #[id number] Admin Amount: 1-100 mL Ordered Dose: 1-100 mL Route: IntraVENous Freq: RAD O NCE Start Date: 12/24/13 No administration times (back 96 hours, ahead 96 hours).Maxwell Bray MR#: [id number] * Rm: [id number]: 5' 10" Wt: 280 lb Co de: Prior Iso:Diagnosis:Allergies: No Known Allergies -------- Current as of: 08/16/192245 GI=Given IC=IV Complet ed NB=New Bag --gadobutrol (GADAVIST) contrast solution 1-10 mL #[id number] Admin Amount: 1-10 mL Ordered Dose: 1-10 mL Route: IntraVENous Freq: RAD O NCE Start Date: 01/13/14 No administration times (back 96 hours, ahead 96 hours). ------sodium chloride (NS) flush 5-10 mL #[id number] Admin Amount: 5-10 mL Ordered Dose: 5-10 mL Route: IntraVENous Freq: RAD ONCE Start Date: 01/13/14 No administration times (back 96 hours, ahead 96 hours). ------sodium chloride (NS) 0.9 % flush #[id number] Ordered Dose: Route: Freq: Start Date: 01/13 No administration times (back 96 hours, ahead 96 hours). ------morphine injection 2 mg #[id number] Admin Amount: 1 mL = 2 mg of 2 mg/mL Ordered Dose: 2 mg Route: IntraVENous Freq: NOW Start Date: 03/13/15 No administration times (back 96 hours, ahe ad 96 hours). ------influenza vaccine (4 yr+)(PF) (FLUCELVAX QUAD) inj ection 0.5*#[id number] Admin Amount: 0.5 mL Ordered Dose: 0.5 mL Route: IntraMUSCular Freq: PRIOR TO DISCHARGE Start Date: 03/30/16 No administration times (back 96 hours, ahead 96 hours). ------oxyCODONE-acetaminophen (PERCOCET) 5-325 mg per tablet 1 Tab #[id number] Admin Amount: 1 Tab Ordered Dose: 1 Tab Route: Oral Freq: NOW Start Date: 09/07/17 No administration times (back 96 hours, ahead 96 hours). ------barium sulfate (READICAT) 2.1 % (w/v), 2.0 % (w /w) oral suspension 9*#[id number] Admin Amount: 900 mL Ordered Dose: 900 mL Route: Oral Delgado q: RAD ONCE Start Date: 10/15/17 No administration times (back 96 hours, ahead 96 hours). ------iopamidol (ISOVUE 300) 61 % contrast injection 100 mL #[id number] Admin Amount: 100 mL Ordered Dose: 100 mL Route: IntraVENous Freq: RAD ONC E Start Date: 10/15/17 No administration times (back 96 hours, ahead 96 hours).Maxwell Bray MR#: [id number] * Rm: [id number]: 5' 10" Wt: 280 lb Code: Prior Iso:Diagnosis:Allergies: No Known Allergies -------- Current as of: 08/16/192245 GI=Given IC=IV Complet ed NB=New Bag --risperiDONE (RisperDAL m-tabs) disintegrating tablet 1 mg #[id number] Admin Amount: 1 Tab (1 x 1 mg Tab) Ordered Dose: 1 mg Route: Oral Freq: ONCE Start Date: 12/24/17 No administration times (back 96 hours, ahead 96 hours). ------ALPRAZolam (XANAX) tablet 2 mg #[id number] Admin Amount: 4 Tab (4 x 0.5 mg Tab) Ordered Dose: 2 mg Route: Ora l Freq: NOW Start Date: 12/24/17 No administration times (back 96 hours, ahe ad 96 hours). ------lamoTRIgine (LaMICtal) tablet 100 mg #[id number] Admin Amount: 1 Tab (1 x 100 mg Tab) Ordered Dose: 100 mg Route: Oral Delgado q: ONCE Start Date: 12/24/17 No administration times (back 96 hours, ahead 96 hours). ------OLANZapine (ZyPREXA zydis) disintegrating tablet 5 mg #[id number] Admin Amount: 1 Tab (1 x 5 mg Tab) Ordered Dose: 5 mg Route: Oral Delgado q: ONCE Start Date: 12/25/17 No administration times (back 96 hours, ahead 96 hours). ------LORazepam (ATIVAN) tablet 2 mg #[id number] Admin Amount: 4 Tab (4 x 0.5 mg Tab) Ordered Dose: 2 mg Route: Ora l Freq: NOW Start Date: 12/25/17 No administration times (back 96 hours, [facility] ad 96 hours). ------LORazepam (ATIVAN) injection 1 mg #[id number] Admin Amount: 0.5 mL = 1 mg of 2 mg/mL Ordered Dose: 1 mg Route: Int TrevorENous Freq: NOW Start Date: 12/25/17 No administration times (back 96 hours, e ad 96 hours). ------barium sulfate (EZ PAQUE) 96 % (w/w) contrast suspension 17 6 g #[id number] Admin Amount: 176 g Ordered Dose: 176 g Route: Oral Freq: RAD ONCE Start Date: 08/02/18 No administration times (back 96 hours, ahead 96 hours). ------barium sulfate (EZ PAQUE) 96 % (w/w) contrast s uspension 176 g #[id number] Admin Amount: 176 g Ordered Dose: 176 g Route: Oral Delgado q: RAD ONCE Start Date: 08/02/18 No administration times (back 96 hours, ahead 96 hours).Luisito Maxwell donovan MR#: [id number] * Rm: [id number]: 5' 10" Wt: 280 lb Co de: Prior Iso:Diagnosis:Allergies: No Known Allergies -------- Current as of: 08/16/192245 GI=Given IC=IV Complet ed NB=New Bag --aspirin chewable tablet 162 mg #[id number] Admin Amount: 2 Tab (2 x 81 mg Tab) Ordered Dose: 162 mg Route: Oral Freq: NOW Start Date: 08/10/19 No administration times (back 96 hours, ahead 96 hours). ------famotidine (PF) (PEPCID) 20 mg in 0.9% sodium chloride 10 mL inje cti*#[id number] Admin Amount: 20 mg Ordered Dose: 20 mg Route: IntraVENous Freq: EVERY 12 H OURS Start Date: 08/16/19 Administration times (back 96 hours, ahead 96 hours): 08/16/19: 2119G I 08/17/19: 89908/18/19: 89908/19/19: 89908/20/19: 899 2099 ---0.9% sodium chloride infusion 1,000 mL #[id number] Admin Amount: 1,000 mL Ordered Dose: 1,000 mL Route: IntraVENous Freq: ONC E Start Date: 08/16/19 Rate: 1,000 mL/hr Duration: Administration times (back 96 hours, ahead 96 hours): 08/16/19: 2119NB 2245IC -----methylPREDNISolone (PF) (Solu-MEDROL) injection 125 mg #[id number] Admin Amount: 2 mL = 125 mg of 125 mg/2 mL Ordered Dose: 125 mg Route: Int raVENous Freq: NOW Start Date: 08/16/19 Administration times (back 96 hours, ahe ad 96 hours): 08/16/19: 2118GI -----aspirin chewable tablet 162 mg #[id number] Admin Amount: 2 Tab (2 x 81 [...] With:Ritika Canas M DDetails:In 2 daysComments:Contact Info:[address] [facility] [phone]-up With:[facility] EM[facility]ENC[facility] DEPARTMENTDetails:Comments:As needed, If symptoms worsenContact Info:[address] [facility] [id number] Name Value Range Interpretation Code Description Data Melani rce(s) Supporting Document(s ) ID Date Data Source [id number] 08/16/2019 10:45:45 PM [facility] IV site clean/dry/intact, gauze dressing applied. Pt received written and verbaldischarge instructions. Verbalize d understanding of same. Ambulated out of EDwith steady gait and in no distress. Name Value Range Interpretation Code Description Data Melani rce(s) Supporting Document(s ) ID Date Data Source [id number] 08/16/2019 09:58:14 PM [facility] Name Value Range Interpretation Description Data Sup porting Code Source(s) Document(s ) [place] 0.21 0.6-1.2 Below low normal [facility] [Moles/volu MMOL/L [facility]] in Hospital Serum or Plasma ID Date Data Source [id number] 08/16/2019 09:52:19 PM [facility] Name Value Range Interpretation Code Description Data Melani rce(s) Supporting Document(s ) Fibrin <500 [facility] - Good D-dimer FEU [facility] [Mass/volume] Hospital in Platelet poor plasma (NOTE)Combination of a D-Dimer result wi thin the reference range and a lowclinical pretest probability has good negative pr edictive value fordeep venous thrombosis.If results are utilized for VTE evaluation, <500 ng/ml is consideredto be negative. ID Date Data Source [id number] 08/16/2019 09:44:39 PM EST [facility] Name Value Range Interpretation Description Data Sup porting Code Source(s) Document(s ) Troponin 0.00-0.05 [facility] - Good I.cardiac [facility] [Mass/volume Hospital ] in Serum or Plasma [...] to 1.50 ng/mL ID Date Data Source [id number] 08/16/2019 09:44:39 PM EST [facility] Value Range Interpretation Description Data Sup porting Code Source(s) Document(s ) Sodium 138 136-145 [facility] - Good [Moles/volume] mmol/L [facility] in Serum or Hospital Plasma Potassium 3.4 3.5-5.1 Below low normal [facility] - Good [Moles/volume] mmol/L [facility] in Serum or Hospital Plasma Chloride 108 98-107 Above high normal [facility] - Good [Moles/volume] mmol/L [facility] in Serum or Hospital Plasma Carbon 20 21-32 Below low normal [facility] - Good dioxide, total mmol/L [facility] [Moles/volume] Hospital in Serum or Plasma Anion gap in 14 10-20 [facility] - Good Serum or mmol/L [facility] Plasma Hospital Glucose 105 74-106 [facility] - Good [Mass/volume] mg/dL [facility] in Serum or Hospital Plasma Urea nitrogen 20 mg/dL 7-18 Above high normal [facility] - Good [Mass/volume] [facility] in Serum or Hospital Plasma Creatinine 0.90 0.70-1.3 [facility] - Good [Mass/volume] mg/dL 0 [facility] in Serum or Hospital Plasma Glomerular >60 [facility] - Good filtration [facility] rate/1.73 sq M Hospital predicted among blacks [Volume Rate/Area] in Serum or Plasma by Creatinine-bas ed formula (MDRD) Glomerular >60 [facility] - Good filtration [facility] rate/1.73 sq M Hospital predicted among non-blacks [Volume Rate/Area] in Serum or Plasma by Creatinine-bas ed formula (MDRD) (NOTE)Estimated GFR is calculated using the Modification of Diet in RenalDisease (MDRD) Study equation, reported for both Americans(GFRAA) and non- Americans (GFRNA), and normalized to 1.7 4s7acsx surface area. The physician must decide which [...] normal [facility] - Good Serum or Plasma [facility] ital Bilirubin.total 0.3 mg/dL 0.2-1.0 [facility] - Good [Mass/volume] in Serum or [facility] Plasma Alanine aminotransferase 37 U/L 13-61 [facility] - Good [Enzymatic activity/volume] [facility] in Serum or Plasma Aspartate aminotransferase 22 U/L 15-37 [facility] HS - Good [Enzymatic activity/volume] [facility] in Serum or Plasma by With P-5'-P Alkaline phosphatase 98 U/L 45-117 [facility] - G ood [Enzymatic activity/volume] [facility] in Serum or Plasma Protein [Mass/volume] in 7.0 g/dL 6.4-8.2 [facility] - Good Serum or Plasma [facility] ital Albumin [Mass/volume] in 3.7 g/dL 3.5-4.7 [facility] - Good Serum or Plasma by [facility] ospital Bromocresol purple (BCP) dye binding method Globulin [Mass/volume] in 3.3 g/dL 1.7-4.7 [facility] - Good Serum by calculation [facility] Albumin/Globulin [Mass 1.1 0.7-2.8 [facility] - Good Ratio] in Serum or Plasma [facility] ID Date Data Source [id number] 08/16/2019 09:44:39 PM EST [facility] - Good [facility] Name Value Range Interpretation Description Data Sup porting Code Source(s) Document(s ) Magnesium 2.3 mg/dL 1.6-2.6 [facility] - Good [Mass/volume] [facility] in Serum or Hospital Plasma ID Date Data Source [id number] 08/16/2019 09:23:23 PM EST [facility] - Good [facility] Name Value Range Interpretation Description Data Sup porting Code Source(s) Document(s ) Leukocytes 7.6 K/uL 4.8-10.6 [facility] - [#/volume] in Good Blood by [facility] Automated count [facility] Erythrocytes 4.97 4.70-6.0 [facility] - [#/volume] in M/uL 0 Good Blood by [facility] Automated count Hospital Hemoglobin 15.2 14.0-18. [facility] - [Mass/volume] in g/dL 0 Good Blood [facility] Hematocrit 45.0 % 42.0-52. [facility] - [Volume 0 Good Fraction] of [facility] Blood by Hospital Automated count Erythrocyte mean 90.5 FL 81.0-94. [facility] - corpuscular 0 Good volume [Entitic [facility] volume] by Hospital Automated count Erythrocyte mean 30.6 PG 27.0-35. [facility] - corpuscular 0 Good hemoglobin [facility] [Entitic mass] [facility] by Automated count Erythrocyte mean 33.8 30.7-37. [facility] - corpuscular g/dL 3 Good hemoglobin [facility] [Mass/volume] by Automated count Erythrocyte 13.0 % 11.5-14. [facility] - distribution 0 Good width [Ratio] by [facility] Automated count Hospital Platelets 183 K/uL 130-400 [facility] - [#/volume] in [facility] Blood by [facility] Automated count [facility] Platelet mean 8.5 FL 9.2-11.8 Below low normal [facility] - volume [Entitic Good volume] in Blood [facility] by Automated Hospital count Nucleated 0.0 PER 0 [facility] - erythrocytes/100 100 WBC Good leukocytes [facility] [Ratio] in Blood [facility] Nucleated 0.00 0.0-0.01 [facility] - erythrocytes K/uL Good [#/volume] in [facility] Segmented 68 % 48.0-72. [facility] - neutrophils/100 0 Good leukocytes in [facility] Lymphocytes/100 19 % 18.0-40. [facility] - leukocytes in 0 [facility] Monocytes/100 7 % 2.0-12.0 [facility] - leukocytes in [facility] Eosinophils/100 5 % 0.0-7.0 [facility] - leukocytes in [facility] Basophils/100 1 % 0.0-3.0 [facility] - leukocytes in [facility] Immature 1 % 0-0.5 Above high normal [facility] - granulocytes/100 Good leukocytes in [facility] Blood by Hospital Automated count Segmented 5.2 K/UL 2.3-7.6 [facility] - neutrophils Good [#/volume] in [facility] Lymphocytes 1.5 K/UL 0.9-4.2 [facility] - [#/volume] in [facility] Monocytes 0.6 K/UL 0.1-1.7 [facility] - [#/volume] in [facility] Eosinophils 0.3 K/UL 0.0-1.0 [facility] - [#/volume] in [facility] Basophils 0.0 K/UL 0.0-0.4 [facility] - [#/volume] in [facility] Immature 0.0 K/UL 0.0-0.17 [facility] - granulocytes Good [#/volume] in [facility] Blood by Hospital Automated count Differential [facility] - cell count Good method - Blood [facility] ID Date Data Source [id number] 08/16/2019 08:50:30 PM [facility] sudden onset of difficulty breathing and rash while eating leticia food, rashacross face and chest slightly raised, no vesicles, denies any chest pain deniesany itching at this time. Went to urgent care, recei nataliia benadryl 50 mg IMfrom EMS. Name Value Range Interpretation Code Description Data [facility] rce(s) Supporting Document(s ) ID Date Data Source [id number] 08/11/2019 08:03:02 AM [facility] History:Chest pain. Shortness of breath. FINDINGS:A single [...] Name Value Range Interpretation Code Description Data [facility] Supporting Document(s ) ID Date Data Source [id number] 08/11/2019 04:22:14 AM [facility] The [...] of morbidity or mortality cardiac cath at [facility] approx 6-8 months ag o [...] e Gets together: Not on file Attends mormon service: Not on file 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 [...] QTC Calculation (Bezet) 435 ms Calculated P [place] 55 degrees Calculated R [place] 34 degrees Calculated T [place] 9 degrees Diagnosis S inus tachycardiaOtherwise normal [...] Time: 08/11/19 12:01 AMResult Value Ref Range [place] level <0.20 (L) 0.6 - 1.2 MMOL/LLACTIC [...] 36N*ENCOUNTER 08/11/2019 01:42:54 AM EST [facility] - [facility] [id number] [facility] EMERGENCY DEPARTMENT [address] [place] [address] [phone]/ Maxwell Mitchell (Male) [id number] JOSE 2 ED Dispo:DISCHARGE Chief Complaint: Chest Pain, Shortne ss of Breath Diagnosis: Dyspnea, unspecified type [] Current Providers: Yeimy cochran: Javier Quezada Primary Nurse: ELIS WilsonN: [id number] Print Gr[employer] p [id number] - [facility] MrnMRN: [id number] Print Group [phone] - Bs i Ed Medva Age SexDOB 1970 AGE 49 SEX Male Primary Care Provider: Ritika Canas MD Phone: [phone]: (No Known Allergies)Date Reviewed: 08/10/2019Reviewed by: Chiquis Christianson CompleteED Provider Notes: No notes of this type exist for this encounter.ED Orders [id number] E KG, 12 LEAD, INITIAL [#[id number]] Priority: STAT Class: Hospital Performed Stand ing Order Information Remaining Occurrences:0 Interval:ONE TIME Last released:0 08/10/2019 Released orders: [place] Aug 10, 2019 10:17 PM by: CHIQUIS CHRISTIANSON Reason for Exam: -> CP SOB [id number] EKG, 12 LEAD, INITIAL [#[id number]] Priority: STAT Class: Hospital Performed Specimen Collected: 08/10/2019 10:14 PM Resulting Agency: [facility] Test ID: [id number] Reason for Exam: -> CP SOB Released on: 08/10/2019 10:17 PM [id number] EKG, 12 LE AD, INITIAL [#[id number]] Priority: STAT Class: Hospital Performed Standing Or mariano Information Remaining Occurrences:0/1 Interval:ONE TIME Last released:0 08/10/2019 Released orders: [place] Aug 10, 2019 11:51 PM by: MAYANK QUEZADA V Reason fo r Exam: -> Chest Pain [id number] EKG, 12 LEAD, INITIAL [#[id number]] Priority: STAT C lass: Hospital Performed Resulting Agency: [facility] Test ID: [id number] Reason for Exam: -> Chest P ain Released on: 08/10/2019 11:51 PM [id number] 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 [#[id number]] Priority: STAT Class: Hospital Performed Standing Order Information Remaining Occurre nces:0/1 Interval:Continuous Last released:08/10/2019 Released orders : [place] Aug 10, 2019 11:51 PM by: MAYANK QUEZADA V Type: -> Bedside [id number] PULSE OXIMETR Y CONTINUOUS [#[id number]] Priority: STAT Class: Hospital Performed Standing Or mariano Information Remaining Occurrences:0/1 Interval:CONTINUOUS Last released :08/10/2019 Released orders: [place] Aug 10, 2019 11:51 PM by: MAYANK QUEZADA V [id number] PULSE OXIMETRY SPOT CHECK [#[id number]] Priority: STAT Class: Hospital Performe d Standing Order Information Remaining Occurrences:0/1 Interval:ONE TIME Last r eleased:08/10/2019 Released orders: [place] Aug 10, 2019 11:51 PM by: MAYANK QUEZADA V NU [id number] OBTAIN OLD EKG [#[id number]] Priority: Routine Class: Hospital Perfo rmed Standing Order Information Remaining Occurrences:0/1 Interval:ONE TI ME Last released:08/10/2019 Released orders: [place] Aug 10, 2019 11:51 PM by: MAYANK QUEZADA V [id number] 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 [#[id number]] Priority: STAT Class: H ospital Performed Type: -> Bedside Released on: 08/10/2019 11:51 PM [id number] PULSE OXIM ETRY CONTINUOUS [#[id number]] Priority: STAT Class: Hospital Performed Released on : 08/10/2019 11:51 PM [id number] PULSE OXIMETRY SPOT CHECK [#[id number]] Priority: STAT C lass: Hospital Performed Released on: 08/10/2019 11:51 PM [id number] OBTAIN OLD EKG [#[id number]] Priority: STAT Class: Hospital Performed Released on: 08/10/2019 11: 51 PM [id number] RT--OXYGEN CANNULA [#[id number]] Priority: STAT Class: H ospital Performed Standing Order Information Remaining Occurrences:0/1 Interval:CONTIN UOUS Last released:08/10/2019 Released orders: [place] Aug 10, 2019 11:51 PM by: MAYANK PRADO V Comment:TITRATE UP TO 4 L / MINUTE TO MAINTAIN O2 SATS GREATER THAN OR EQUAL TO 94% LPM -> 2 Indications for O2? -> CHEST PAIN [id number] RT--OXYGEN CANNULA [#[id number]] Priority: STAT Class: Hospital Performed Comment:TITRATE UP TO 4 L / MINUTE TO MAINTAIN O2 SATS GREATER THAN OR EQUAL TO 94% LPM -> 2 Indications fo r O2? -> CHEST PAIN Released on: 08/10/2019 11:51 PM [id number] DIET NPO [#[id number]] Priority: STAT Class: Hospital Performed Standing Order Information Remaining Occurrences:0/1 Interval:DIET EFFECTIVE NOW Last released:08/10 Released orders: [place] Aug 10, 2019 11:51 PM by: MAYANK QUEZADA V NPO options: - > With Meds [id number] DIET NPO [#[id number]] Priority: STAT Class: H ospital Performed NPO options: -> With Meds Released on: 08/10/2019 11:51 PM [id number] SALINE LOCK IV [#[id number]] Priority: STAT Class: Hospital Performed Standing O rder Information Remaining Occurrences:0/1 Interval:ONE TIME Last released:0 08/10/2019 Released orders: [place] Aug 10, 2019 11:51 PM by: MAYANK QUEZADA V [id number] SALI NE LOCK IV [#[id number]] Priority: STAT Class: Hospital Performed Relea sed on: 08/10/2019 11:51 PM [id number] METABOLIC PANEL, COMPREHENSIVE [#[id number]] Bridgette ority: STAT Class: ER Collect Standing Order Information Remaining Occurrences:0/1 In terval:ONE TIME Last released:08/10/2019 Released orders: Sun Aug 10, 2019 11:51 PM by: MAYANK QUEZADA V [id number] CBC WITH AUTOMATED DIFF [#[id number]] Priority: STAT Class: ER Collect Standing Order Information Remaining Occurrences:0/1 Inter haile:ONE TIME Last released:08/10/2019 Released orders: Sun Aug 10, 2019 11:51 PM by: MAYANK QUEZADA V [id number] TROPONIN I [#[id number]] Priority: STAT Class: ER Collect Standing Order Information Remaining Occurrences:0/1 Inter haile:ONE TIME Last released:08/10/2019 Released orders: Sun Aug 10, 2019 11:51 PM by: MAYANK QUEZADA V [id number] MAGNESIUM [#[id number]] Priority: STAT Class: ER Collect Standing Order Information Remaining Occurrences:0/1 Inter haile:ONE TIME Last released:08/10/2019 Released orders: Sun Aug 10, 2019 11:51 PM by: MAYANK QUEZADA V [id number] BNP [#[id number]] Priority: STAT Class: ER Collect Standing Order Information Remaining Occurrences:0/1 Inter haile:ONE TIME Last released:08/10/2019 Released orders: Sun Aug 10, 2019 11:51 PM by: MAYANK QUEZADA V [id number] D DIMER [#[id number]] Priority: STAT Class: ER Collect Standing Order Information Remaining Occurrences:0/1 Inter haile:ONE TIME Last released:08/10/2019 Released orders: Sun Aug 10, 2019 11:51 PM by: MAYANK QUEZADA V [id number] PROTHROMBIN TIME + INR [#[id number]] Priority: STAT Class: ER Collect Standing Order Information Remaining Occurrences:0/1 Inter haile:ONE TIME Last released:08/10/2019 Released orders: Sun Aug 10, 2019 11:51 PM by: MAYANK QUEZADA V [id number] PTT [#[id number]] Priority: STAT Class: ER Collect Specimen Source: Blood Standing Order Information Remaining Occurrences:0 /1 Interval:ONE TIME Last released:08/10/2019 Released orders: Sun Aug 10, 2019 11:51 PM by: MAYANK QUEZADA V [id number] LITHIUM [#[id number]] Pr iority: STAT Class: ER Collect Standing Order Information Remaining Occurrences:0/1 I nterval:ONE TIME Last released:08/10/2019 Released orders: Sun Aug 10, 2019 11:51 PM by: MAYANK QUEZADA V [id number] METABOLIC PANEL, COMPREHENSIVE [#[id number]] Bridgette ority: STAT Class: ER Collect Specimen Source: Plasma Specimen Collected: 08/11/2019 12:01 AM Resulting Agency: [facility] Test ID: [id number] Released on: 08/10/2019 11:51 PM [id number] CBC WITH AUTOMATED DIFF [#[id number]] Priority: STAT Class: E R Collect Specimen Source: Whole Blood Specimen Collected: 08/11/2019 12:01 AM Resulting Agency: [facility] Test ID: [id number] Released on: 08/10/2019 11:51 PM [id number] TROPON IN I [#[id number]] Priority: STAT Class: ER Collect Specimen Source: [place] s[facility] Specimen Collected: 08/11/2019 12:01 AM Resulting Agency: [facility] Test ID: TROIP Released on: 08/10/2019 11:51 PM [id number] MAGNESIUM [#[id number]] Priority: STAT Class: ER Collect Specimen Source: Plasma Specimen Collec hyun: 08/11/2019 12:01 AM Resulting Agency: [facility] Test ID: MGPL Re leased on: 08/10/2019 11:51 PM [id number] BNP [#[id number]] Priority : STAT Class: ER Collect Specimen Source: Plasma Specimen Collected: 08/11/2019 12:01 AM Resultin g Agency: [facility] Test ID: BNPPB Released on: 08/10/2019 11:51 PM [id number] 74 D DIMER [#[id number]] Priority: STAT Class: ER Collect Speci men Source: Plasma Specimen Collected: 08/11/2019 12:01 AM Resulting Agency: [facility] Test ID: DDIME Released on: 08/10/2019 11:51 PM [id number] PROTHROMBIN TIME + INR [#[id number]] Priority: STAT Class: ER Collect Specimen Source: Plasma Specimen Collec hyun: 08/11/2019 12:01 AM Resulting Agency: [facility] Test ID: APTHR R eleased on: 08/10/2019 11:51 PM [id number] PTT [#[id number]] Priorit y: STAT Class: ER Collect Specimen Source: Plasma Specimen Collected: 08/11/2019 12:01 AM Resultin g Agency: [facility] Test ID: APTT Released on: 08/10/2019 11:51 PM [id number] LITHIUM [#[id number]] Priority: STAT Class: ER Collect Speci men Source: Serum Specimen Collected: 08/11/2019 12:01 AM Resulting Agency: [facility] Test ID: LI Released on: 08/10/2019 11:51 PM [id number] LACTIC ACID [#[id number]] Priority: STAT Class: ER Collect Standing Order Information Remainin g Occurrences:0/1 Interval:ONE TIME Last released:08/11/2019 Released orders : Mon Aug 11, 2019 12:15 AM by: KATI WILSON [id number] LACTIC ACID [#[id number]] Priority: STAT Class: ER Collect Specimen Source: Plasma Specimen Collec hyun: 08/11/2019 12:01 AM Resulting Agency: [facility] Test ID: LAC Rel eased on: 08/11/2019 12:15 AM ASPIRIN 81 MG CHEWABLE TAB [#[id number]] Priority: STAT Class: Normal [id number] XR CHEST PORT [#[id number]] Priority: STAT Cl ass: Hospital Performed Standing Order Information Remaining Occurrences:0/1 Inter haile:ONE TIME Last released:08/10/2019 Released orders: Sun Aug 10, 2019 11:51 PM by: MAYANK QUEZADA V Reason for Exam -> Chest Pain [id number] XR CHEST PORT [#[id number]] Priority: STAT Class: Hospital Performed Resulting Agency: [facility] Test ID: [id number] Reason for Exam -> Chest Pain Released on: 08/10/2019 11:51 PM [id number] INFLUENZA A & B AG (RAPID TEST) [#[id number]] Priority: STAT Class: ER Collect Sta nding Order Information Remaining Occurrences:0/1 Interval:ONE TIME Last released: 08/10/2019 Released orders: Sun Aug 10, 2019 11:51 PM by: MAYANK QUEZADA V [id number] INFL UENZA A & B AG (RAPID TEST) [#[id number]] Priority: STAT Class: ER Collect Specimen Source : Nasal washing Specimen Collected: 08/11/2019 12:18 AM Resulting Agency: [facility] Test ID: INFLUA Released on: 08/10/2019 11:51 PM [id number] CULTURE, BLOOD [#[id number]] Priority: STAT Class: ER Collect Specimen Source: Blood Standing Order Information Remaining Occurrences:0/1 Interval:ONE TIME Last released:0 08/11/2019 Released orders: SunAug 11, 2019 12:15 AM by: KATI WILSON [id number] CULTU RE, BLOOD [#[id number]] Priority: STAT Class: ER Collect Specimen Source : Blood Standing Order Information Remaining Occurrences:0/1 Interval:ONE TI ME Last released:08/11/2019 Released orders: SunAug 11, 2019 12:15 AM by: KATI WILSON [id number] CULTURE, BLOOD [#[id number]] Priority: STAT Class: E R Collect Specimen Source: Blood Specimen Collected: 08/11/2019 12:33 AM Resulting Agency: [facility] Test ID: HBCS Released on: 08/11/2019 12:15 AM [id number] CULTUR E, BLOOD [#[id number]] Priority: STAT Class: ER Collect Specimen Source: Blo od Specimen Collected: 08/11/2019 12:43 AM Resulting Agency: [facility] Test ID: HBCS Released on: 08/11/2019 12:15 AMLuisitoMaxwell donovan MR#: [id number] Acct#: [id number]* Rm: [id number]: 5' 10" Wt: 280 lb Code: Prior Iso:Diagnosis:Allergies: No Kno wn Allergies -------- Current as of: 08/11/19 0142 GI=Given -------aspirin (ASPIRIN) tablet 325 mg #[id number] Admin Amount: 1 Tab (1 x 325 mg Tab) Ordered Dose: 325 mg Route: Oral Freq: ONCE Start Date: 12/24/13 No administration times (b ack 96 hours, ahead 96 hours). ------diphenhydrAMINE (BENADRYL) capsule 50 mg #[id number] Admin Amount: 1 Cap (1 x 50 mg Cap) Ordered Dose: 50 mg Ro gambell: Oral Freq: NOW Start Date: 12/24/13 No administration times (back 96 hours, ahead 96 hours). ------diazepam (VALIUM) tablet 5 mg #[id number] Admin Amount: 1 Tab (1 x 5 mg Tab) Ordered Dose: 5 mg Route: Oral Freq: ONCE Start Date: 12/24/13 No administration times (back 96 hours, ahead 96 hours). ------lidocaine (XYLOCAINE) 10 mg/mL (1 %) injection 1-3 0 mL #[id number] Admin Amount: 1-30 mL Ordered Dose: 1-30 mL Route: Int raDERMal Freq: ONCE Start Date: 12/24/13 No administration times (back 96 hours, ahead 96 hours). ------heparin (PF) 2 units/ml in NS infusion 2,000 Units #[id number] Admin Amount: 1,000 mL = 2,000 Units of 2 Units/mL Ordered Dose: 1,000 mL Route: Irrigation Freq: ONCE Start Date: 12/24/13 No administration times (back 96 hours, ahead 96 hours). ------heparinized saline 2 units/mL infusion 1,000 Units #[id number] Admin Amount: 500 mL = 1,000 Units of 2 Units/mL Ordered Dose: 500 m L Route: IntraarTERial Freq: ONCE Start Date: 12/24/13 No admini stration times (back 96 hours, ahead 96 hours). ------0.9% sodium chloride infusion #[id number] Ordered Dose: 75 mL/hr Route: IntraVENous Freq: CONTINUOUS Start Date: 12/24/13 Rate: 75 mL/hr Duration: No administration ti mes (back 96 hours, ahead 96 hours). ------ioversol (OPTIRAY) 320 mg iodine/mL contrast inje ction 1-100 mL #[id number] Admin Amount: 1-100 mL Ordered Dose: 1-100 mL Ro gambell: IntraVENous Freq: RAD ONCE Start Date: 12/24/13 No administration times (back 96 hours, ahead 96 hours).Maxwell Bray MR#: [id number] * Rm: [id number] Ht: 5' 10" Wt: 280 lb Code: Prior Iso:Diagnosis:Allergies: No Known Allergies -------- Current as of: 08/11/19 0142 GI=Given -------gadobutrol (GADAVIST) contrast solution 1-10 mL #[id number] Admin Amount: 1-10 mL Ordered Dose: 1-10 mL Route: Int raVENous Freq: RAD ONCE Start Date: 01/13/14 No administration times (back 96 hours, ahead 96 hours). ------sodium chloride (NS) flush 5-10 mL #[id number] Admin Amount: 5-10 mL Ordered Dose: 5-10 mL Route: IntraVENo us Freq: RAD ONCE Start Date: 01/13/14 No administration times (back 96 hours, ahe ad 96 hours). ------sodium chloride (NS) 0.9 % flush #[id number] Ordered Dose: Route: Freq: Start Date: 01/13/14 No administration times (back 96 hours, ahead 96 hours). ------morphine injection 2 mg #[id number] Admin Amount: 1 mL = 2 mg of 2 mg/mL Ordered Dose: 2 mg Route: IntraVENous Freq: NOW Start Date: 03/13/15 No administration t imes (back 96 hours, ahead 96 hours). ------influenza vaccine (4 yr+)(PF) (FLUCELVAX Q UAD) injection 0.5*#[id number] Admin Amount: 0.5 mL Ordered Dose: 0.5 mL Route: Int raMUSCular Freq: PRIOR TO DISCHARGE Start Date: 03/30/16 No administration times (back 9 6 hours, ahead 96 hours). ------oxyCODONE-acetam inophen (PERCOCET) 5-325 mg per tablet 1 Tab #[id number] Admin Amount: 1 Tab Ordered Dose: 1 Tab Route: Oral Freq: NOW Start Date: 09/07/17 No administration times (back 96 hours, ahe ad 96 hours). ------barium sulfate (READICAT) 2.1 % (w/v), 2.0 % (w/w) oral suspension 9*#[id number] Admin Amount: 900 mL Ordered Dose: 900 mL Route: Oral Delgado q: RAD ONCE Start Date: 10/15/17 No administration times (back 96 hours, e ad 96 hours). ------iopamidol (ISOVUE 300) 61 % contrast injection 100 mL #[id number] Admin Amount: 100 mL Ordered Dose: 100 mL Route: Int raVENous Freq: RAD ONCE Start Date: 10/15/17 No administration times (back 96 hours, ahead 96 hours).Maxwell Bray MR#: [id number] * Rm: RR16-09Xs: 5' 1 0" Wt: 280 lb Code: Prior Iso:Diagnosis:Allergies: No Known Allergies -------- Current as of: 08/11/19 0142 GI=Given -------risperiDONE (RisperDAL m-tabs) disintegrating tablet 1 mg #[id number] Admin Amount: 1 Tab (1 x 1 mg Tab) Ordered Dose: 1 mg Route: Oral Freq: ONCE Start Date: 12/24/17 No administration times (back 96 hours, ahead 96 hours). ------ALPRAZolam (XANAX) tablet 2 mg #[id number] Admin Amount: 4 Tab (4 x 0.5 mg Tab) Ordered Dose: 2 mg Route: Oral Freq: NOW Start Date: 12/24/17 No administration times (back 96 hours, ahead 96 hours). ------lamoTRIgine (LaMICtal) tablet 100 mg #[id number] Admin Amount: 1 Tab (1 x 100 mg Tab) Ordered Dose: 100 mg Route: Oral Freq: ONCE Start Date: 12/24/17 No administration times (back 96 hours, ahead 96 hours). ------OLANZapine (ZyPREXA zydis) disintegrating tablet 5 mg #[id number] Admin Amount: 1 Tab (1 x 5 mg Tab) Ordered Dose: 5 mg Route: Oral Freq: ONCE Start Date: 12/25/17 No administration times (back 96 hours, ahead 96 hours). ------LORazepam (ATIVAN) tablet 2 mg #[id number] Admin Amount: 4 Tab (4 x 0.5 mg Tab) Ordered Dose: 2 mg Route: Oral Freq: NOW Start Date: 12/25/17 No administration times (back 96 hours, ahead 96 hours). ------LORazepam (ATIVAN) injection 1 mg #[id number] Admin Amount: 0.5 mL = 1 mg of 2 mg/mL Ordered Dose: 1 mg Route: IntraVENous Freq: NOW Start Date: 12/25/17 No administration ti mes (back 96 hours, ahead 96 hours). ------barium sulfate (EZ PAQUE) 96 % (w/w) contrast suspensio n 176 g #[id number] Admin Amount: 176 g Ordered Dose: 176 g Route: Oral Delgado q: RAD ONCE Start Date: 08/02/18 No administration times (back 96 hours, [facility] ad 96 hours). ------barium sulfate (EZ PAQUE) 96 % (w/w) contrast suspensio n 176 g #[id number] Admin Amount: 176 g Ordered Dose: 176 g Route: Oral Delgado q: RAD ONCE Start Date: 08/02/18 No administration times (back 96 hours, [facility] ad 96 hours).Maxwell Bray MR#: [id number] * Rm: [id number]: 5' 10" Wt: 280 lb Code: Prior Iso:Diagnosis:Allergies: No Known Allergies -------- Current as of: 08/11/19 0142 GI=Given -------aspirin chewable tablet 162 mg #[id number] Admin Amount: 2 Tab (2 x 81 [...] possible for a visit in 1 dayComments:Contact Info:[facility] Kevinsam Rodriguez [address] [facility] [place] [id number] With:Detail s:Comments:As needed, If symptoms worsenContact Info: Name Value Range Interpretation Code Description Data Melani rce(s) Supporting Document(s ) ID Date Data Source [id number] 08/11/2019 01:40:37 AM EST [facility] I have reviewed discharge instructions w ith the patient and spouse. The patientand spouse verbalized understanding.\\ Name Value Range Interpretation Code Description Data Melani rce(s) Supporting Document(s ) ID Date Data Source [id number] 08/16/2019 06:35:29 AM EST [facility] Name Value Range Interpretation Description Data Sup porting Code Source(s) Document(s ) Service comment [facility] Bacteria BSS - Good identified in [facility] Unspecified Hospital specimen by Culture ID Date Data Source [id number] 08/16/2019 06:35:28 AM EST [facility] Name Value Range Interpretation Description Data Sup porting Code Source(s) Document(s ) Service comment [facility] Bacteria [facility] - Good [facility] by Culture ID Date Data Source [id number] 08/11/2019 12:56:01 AM EST [facility] Name Value Range Interpretation Description Data Sup porting Code Source(s) Document(s ) Influenza virus NEG [facility] A Ag [Presence] [facility] in [facility] by Immunoassay Influenza virus NEG [facility] - [facility] B Ag [Presence] [facility] in [facility] by Immunoassay IMMUNOCHROMATOGRAPHIC MEMBRANE ASSAYResu lt: Negative for Influenza A and BNote: A negative result does not exclude an infl uenza virus infection, including H1N1. If more conclusive testing is desired, foll ow-up confirmatory testing is warranted. Specimen source [Identifier] of Unspecified [facility] specimen ID Date Data Source [id number] 08/11/2019 01:35:58 AM EST [facility] Name Value Range Interpretation Description Data Sup porting Code Source(s) Document(s ) Prothrombin 9.6 sec 9.4-11.1 [facility] time (PT) [facility] INR in 0.9 0.8-1.2 [facility] - Good Platelet poor [facility] plasma by Hospital Coagulation assay ID Date Data Source [id number] 08/11/2019 01:35:58 AM EST [facility] Name Value Range Interpretation Description Data Sup porting Code Source(s) Document(s ) aPTT in 23.1 SEC 21.0-28. [facility] - Good Platelet poor 0 [facility] plasma by Hospital Coagulation assay Therapeutic Range = 42.0-60.0 secs ID Date Data Source [id number] 08/11/2019 01:30:36 AM EST [facility] Name Value Range Interpretation Description Data Sup porting Code Source(s) Document(s ) Natriuretic 19 pg/mL 0-100 [facility] peptide B [facility] [Mass/volume] [facility] in Serum or Plasma ID Date Data Source [id number] 08/11/2019 01:25:10 AM EST [facility] Name Value Range Interpretation Code Description Data Supporting Source(s) Document(s ) [place] 0.6-1.2 Below low normal [facility] - Good [Moles/volum [facility] e] in Serum Hospital or Plasma ID Date Data Source [id number] 08/11/2019 01:20:56 AM EST [facility] Name Value Range Interpretation Code Description Data Melani rce(s) Supporting Document(s ) Fibrin <500 BSS - [facility] D-dimer FEU [facility] [Mass/volume] [facility] in Platelet poor plasma (NOTE)Combination of a D-Dimer result wi thin the reference range and a lowclinical pretest probability has good negative pr edictive value fordeep venous thrombosis.If results are utilized for VTE evaluation, <500 ng/ml is consideredto be negative. ID Date Data Source [id number] 08/11/2019 01:09:42 AM [facility] Name Value Range Interpretation Description Data Sup porting Code Source(s) Document(s ) Lactate 1.7 0.4-2.0 [facility] - Good [Moles/volu MMOL/L [facility] me] in Hospital Serum or Plasma ID Date Data Source [id number] 08/11/2019 01:09:42 AM EST [facility] Value Range Interpretation Description Data Sup porting Code Source(s) Document(s ) Troponin 0.00-0.05 [facility] - Good I.cardiac [facility] [Mass/volume Hospital ] in Serum or Plasma [...] to 1.50 ng/mL ID Date Data Source [id number] 08/11/2019 01:09:42 AM EST [facility] Name Value Range Interpretation Description Data Sup porting Code Source(s) Document(s ) Sodium 140 136-145 [facility] - Good [Moles/volume] mmol/L [facility] in Serum or Hospital Plasma Potassium 3.9 3.5-5.1 [facility] - Good [Moles/volume] mmol/L [facility] in Serum or Hospital Plasma Chloride 113 98-107 Above high normal [facility] - Good [Moles/volume] mmol/L [facility] in Serum or Hospital Plasma Carbon 21 21-32 [facility] - Good dioxide, total mmol/L [facility] [Moles/volume] Hospital in Serum or Plasma Anion gap in 10 10-20 [facility] - Good Serum or mmol/L [facility] Plasma Hospital Glucose 90 mg/dL 74-106 [facility] - Good [Mass/volume] [facility] in Serum or Hospital Plasma Urea nitrogen 18 mg/dL 7-18 [facility] - Good [Mass/volume] [facility] in Serum or Hospital Plasma Creatinine 0.78 0.70-1.3 [facility] - Good [Mass/volume] mg/dL 0 [facility] in Serum or Hospital Plasma Glomerular >60 [facility] - Good filtration [facility] rate/1.73 sq M Hospital predicted among blacks [Volume Rate/Area] in Serum or Plasma by Creatinine-bas ed formula (MDRD) Glomerular >60 [facility] - Good filtration [facility] rate/1.73 sq M Hospital predicted among non-blacks [Volume Rate/Area] in Serum or Plasma by Creatinine-bas ed formula (MDRD) (NOTE)Estimated GFR is calculated using the Modification of Diet in RenalDisease (MDRD) Study equation, reported for both Americans(GFRAA) and non- Americans (GFRNA), and normalized to 1.7 0d7tzum surface area. The physician must decide which [...] normal [facility] - Good Serum or Plasma [facility] ital Bilirubin.total 0.5 mg/dL 0.2-1.0 [facility] - Good [Mass/volume] in Serum or [facility] Plasma Alanine aminotransferase 29 U/L 13-61 [facility] - Good [Enzymatic activity/volume] [facility] in Serum or Plasma Aspartate aminotransferase 18 U/L 15-37 [facility] - Good [Enzymatic activity/volume] [facility] in Serum or Plasma by With P-5'-P Alkaline phosphatase 98 U/L 45-117 [facility] - G ood [Enzymatic activity/volume] [facility] in Serum or Plasma Protein [Mass/volume] in 6.7 g/dL 6.4-8.2 [facility] - Good Serum or Plasma [facility] ital Albumin [Mass/volume] in 3.4 g/dL 3.5-4.7 Below low normal [facility] - Good Serum or Plasma by [facility] ospital Bromocresol purple (BCP) dye binding method Globulin [Mass/volume] in 3.3 g/dL 1.7-4.7 [facility] - Good Serum by calculation [facility] Albumin/Globulin [Mass 1.1 0.7-2.8 [facility] - Good Ratio] in Serum or Plasma [facility] ID Date Data Source [id number] 08/11/2019 01:09:42 AM EST [facility] Name Value Range Interpretation Description Data Sup porting Code Source(s) Document(s ) Magnesium 2.1 mg/dL 1.6-2.6 [facility] - Good [Mass/volume] [facility] in Serum or Hospital Plasma ID Date Data Source [id number] 08/11/2019 01:01:18 AM EST [facility] - [facility] Name Value Range Interpretation Description Data Sup porting Code Source(s) Document(s ) Leukocytes 7.7 K/uL 4.8-10.6 [facility] - [#/volume] in Good Blood by [facility] Automated count [facility] Erythrocytes 4.93 4.70-6.0 [facility] - [#/volume] in M/uL 0 Good Blood by [facility] Automated count Hospital Hemoglobin 14.9 14.0-18. [facility] - [Mass/volume] in g/dL 0 [facility] Blood [facility] Hematocrit 44.4 % 42.0-52. [facility] - [Volume 0 Good Fraction] of [facility] Blood by Hospital Automated count Erythrocyte mean 90.1 FL 81.0-94. [facility] - corpuscular 0 Good volume [Entitic [facility] volume] by Hospital Automated count Erythrocyte mean 30.2 PG 27.0-35. [facility] - corpuscular 0 Good hemoglobin [facility] [Entitic mass] Hospital by Automated count Erythrocyte mean 33.6 30.7-37. [facility] - corpuscular g/dL 3 Good hemoglobin [facility] Hospital [Mass/volume] by Automated count Erythrocyte 12.5 % 11.5-14. [facility] - distribution 0 Good width [Ratio] by [facility] Automated count Hospital Platelets 189 K/uL 130-400 [facility] - [#/volume] in Good Blood by [facility] Automated count Hospital Platelet mean 9.0 FL 9.2-11.8 Below low normal [facility] - volume [Entitic Good volume] in Blood [facility] by Automated Hospital count Nucleated 0.0 PER 0 [facility] - erythrocytes/100 100 WBC Good leukocytes [facility] [Ratio] in Blood Hospital Nucleated 0.00 0.0-0.01 [facility] - erythrocytes K/uL Good [#/volume] in [facility] Segmented 59 % 48.0-72. [facility] - neutrophils/100 0 Good leukocytes in [facility] Lymphocytes/100 29 % 18.0-40. [facility] - leukocytes in 0 [facility] Blood [facility] Monocytes/100 7 % 2.0-12.0 [facility] - leukocytes in [facility] Blood [facility] Eosinophils/100 5 % 0.0-7.0 [facility] - leukocytes in [facility] Blood [facility] Basophils/100 1 % 0.0-3.0 [facility] - leukocytes in [facility] Blood [facility] Immature 0 % 0-0.5 [facility] - granulocytes/100 Good leukocytes in [facility] Blood by Hospital Automated count Segmented 4.6 K/UL 2.3-7.6 [facility] - neutrophils Good [#/volume] in [facility] Lymphocytes 2.2 K/UL 0.9-4.2 [facility] - [#/volume] in [facility] Monocytes 0.5 K/UL 0.1-1.7 [facility] - [#/volume] in [facility] Eosinophils 0.4 K/UL 0.0-1.0 [facility] - [#/volume] in [facility] Basophils 0.1 K/UL 0.0-0.4 [facility] - [#/volume] in [facility] Immature 0.0 K/UL 0.0-0.17 [facility] - granulocytes Good [#/volume] in [facility] Hospital Automated count Differential [facility] - cell count Good method - [facility] Procedure Social History Code Duration Value Status Description Data Source(s ) Alcohol intake 01/08/2020 Current completed Current [facility] 12:00:00 AM EDT non-drinker non-drinker of [employer] alcohol (finding) [employer] (finding) Tobacco use and 01/08/2020 Never used completed Never used [facility] exposure 12:00:00 AM EDT [employer] Smoking 01/08/2020 Never smoker completed Never smoker [facility] 12:00:00 AM EDT [employer] Alcohol intake 12/25/2019 Current completed Current [facility] 12:00:00 AM EDT non-drinker non-drinker of [employer] alcohol (finding) [employer] (finding) Tobacco use and 12/25/2019 Never used completed Never used [facility] exposure 12:00:00 AM EDT [employer] Smoking 12/25/2019 Never smoker completed Never smoker [facility] 12:00:00 AM EDT [employer] Alcohol intake 12/12/2019 Current completed Current [facility] 12:00:00 AM EDT non-drinker non-drinker of [employer] alcohol (finding) [employer] (finding) Smoking 12/12/2019 Never smoker completed Never smoker [facility] 12:00:00 AM EDT [employer] Alcohol intake 12/05/2019 Current completed Current [facility] 12:00:00 AM EDT non-drinker non-drinker of [employer] alcohol (finding) [employer] (finding) Tobacco use and 12/05/2019 Never used completed Never used [facility] exposure 12:00:00 AM EDT [employer] Smoking 12/05/2019 Never smoker completed Never smoker [facility] 12:00:00 AM EDT [employer] Alcohol intake 12/01/2019 Current completed Current [facility] 12:00:00 AM EDT non-drinker non-drinker of [employer] alcohol (finding) [employer] (finding) Smoking 12/01/2019 Never smoker completed Never smoker [facility] 12:00:00 AM EDT [employer] Alcohol intake 11/14/2019 Current completed Current [facility] 12:00:00 AM EDT non-drinker non-drinker of [employer] alcohol (finding) [employer] (finding) Smoking 11/14/2019 Never smoker completed Never smoker [facility] 12:00:00 AM EDT [employer] Alcohol intake 11/10/2019 Current completed Current [facility] 12:00:00 AM EDT non-drinker non-drinker of [employer] alcohol alcohol (finding) [employer] (finding) Smoking 11/10/2019 Never smoker completed Never smoker [facility] 12:00:00 AM EDT [employer] Alcohol intake 09/06/2019 Current completed Current [facility] 12:00:00 AM EDT non-drinker non-drinker of [employer] alcohol alcohol (finding) [employer] (finding) Smoking 09/06/2019 Never smoker completed Never smoker [facility] 12:00:00 AM EDT [employer] Alcohol intake 08/16/2019 Current completed Current [facility] 12:00:00 AM EST non-drinker non-drinker of [employer] alcohol alcohol (finding) [employer] (finding) Smoking 08/16/2019 Never smoker completed Never smoker [facility] 12:00:00 AM EST [employer] Alcohol intake 08/10/2019 Current completed Current [facility] 12:00:00 AM EST non-drinker non-drinker of [employer] of alcohol alcohol (finding) [employer] (finding) Smoking 08/10/2019 Never smoker completed Never smoker [facility] 12:00:00 AM EST [employer] Alcohol intake 07/21/2019 Current completed Current [facility] 12:00:00 AM EST non-drinker non-drinker of [employer] of alcohol alcohol (finding) [employer] (finding) Smoking 07/21/2019 Never smoker completed Never smoker [facility] 12:00:00 AM EST [facility] Software Vital Signs ID Date Data Source UNK Name Value Range Interpretation Code Description Data Source(s) Oxygen saturation 98 % 98 % [place] ours in Arterial blood BelaN-1-1 by [employer]ulse [employer] Body mass index 48.95 kg/m2 48.95 kg/m2 [place] ours (BMI) [Ratio] Coherent Path [employer] System [employer] Body weight 136.533 kg 136.[address] [facility] SecMayvenn [facility] Body height 167 cm [address] [facility] Percolate [facility] Respiratory rate 12 /min 12 /min [facility] [employer] [facility] Body temperature 36.56 May 36.56 May [facility] [employer] [facility] Heart rate 102 /min 102 /min [email or web address] Diastolic blood 60 mm[Hg] 60 mm[Hg] [facility] pressure [employer] [facility] Systolic blood 100 mm[Hg] 100 mm[Hg] [place] [facility] s pressure [employer] System [employer] Diastolic blood 80 mm[Hg] 80 mm[Hg] [facility] rs pressure BelaN-1-1 System [facility] Systolic blood 122 mm[Hg] 122 mm[Hg] [facility] s pressure BelaN-1-1 System [facility] Respiratory rate 20 /min 20 /min [facility] urs [employer] System [facility] Heart rate 70 /min 70 /min Bon Percolate [facility] Diastolic blood 70 mm[Hg] 70 mm[Hg] [facility] pressure [employer]current [employer] [facility] Systolic blood 124 mm[Hg] 124 mm[Hg] [facility] s pressure [employer] [facility] Respiratory rate 18 /min 18 /min [facility] [employer] System [facility] Body temperature 36.56 May 36.56 May [facility] urs [employer] Heart rate 88 /min 88 /min [facility] [employer] Diastolic blood 86 mm[Hg] 86 mm[Hg] [facility] pressure [employer] Systolic blood 110 mm[Hg] 110 mm[Hg] [facility] s pressure [employer] Inc Oxygen saturation 98 % 98 % [facility] ours in Arterial blood Bela iPierian by Pulse oxim[employer] Body mass index 47.98 kg/m2 47.98 kg/m2 [facility] ours (BMI) [Ratio] [facility] Body weight 133.811 kg 133.811 kg Bon SecMayvenn Inc Body height 167 cm 167 cm Bon Per[employer] Inc Respiratory rate 12 /min 12 /min [facility] urs [employer] Inc Body temperature 36.67 May 36.67 May [facility] urs [employer] Inc Heart rate 100 /min 100 /min [facility] [employer] Diastolic blood 66 mm[Hg] 66 mm[Hg] [facility] pressure [employer] Systolic blood 102 mm[Hg] 102 mm[Hg] [facility] s pressure [employer] Respiratory rate 20 /min 20 /min [facility] urs [employer] Heart rate 70 /min 70 /min [facility] [employer] Diastolic blood 68 mm[Hg] 68 mm[Hg] [facility] pressure [facility] Systolic blood 120 mm[Hg] 120 mm[Hg] [facility] s pressure [employer] Respiratory rate 18 /min 18 /min [facility] urs [employer] Heart rate 68 /min 68 /min [facility] [employer] Diastolic blood 68 mm[Hg] 68 mm[Hg] [facility] pressure [facility] Systolic blood 112 mm[Hg] 112 mm[Hg] [facility] s pressure [employer] Respiratory rate 20 /min 20 /min [facility] urs [employer] Inc Body temperature 36.56 May 36.56 May [facility] urs [employer] Heart rate 92 /min 92 /min [facility] [employer]current [employer] Inc Diastolic blood 70 mm[Hg] 70 mm[Hg] [facility] pressure [employer] Systolic blood 110 mm[Hg] 110 mm[Hg] [facility] s pressure [facility] Respiratory rate 20 /min 20 /min [facility] urs [facility] Heart rate 68 /min 68 /min [facility] [employer] Diastolic blood 72 mm[Hg] 72 mm[Hg] [facility] pressure [employer] Systolic blood 112 mm[Hg] 112 mm[Hg] [facility] s pressure [employer] Respiratory rate 20 /min 20 /min [facility] urs [employer] Heart rate 82 /min 82 /min [facility] [employer] Diastolic blood 66 mm[Hg] 66 mm[Hg] [facility] pressure [employer] Systolic blood 110 mm[Hg] 110 mm[Hg] [facility] s pressure [employer] Respiratory rate 14 /min 14 /min [facility] urs [employer] Body temperature 36.89 May 36.89 May [facility] urs [employer] Heart rate 72 /min 72 /min Bon SecQMedic System Inc Diastolic blood 74 mm[Hg] 74 mm[Hg] [facility] pressure [employer] Systolic blood 128 mm[Hg] 128 mm[Hg] [facility] s pressure [employer] Respiratory rate 20 /min 20 /min [facility] urs [employer] Heart rate 68 /min 68 /min Bon SecQMedic System Inc Diastolic blood 64 mm[Hg] 64 mm[Hg] [facility] pressure [facility] Systolic blood 108 mm[Hg] 108 mm[Hg] [facility] s pressure [employer] Respiratory rate 18 /min 18 /min [facility] urs [employer] Heart rate 80 /min 80 /min [facility] [employer] Diastolic blood 70 mm[Hg] 70 mm[Hg] [facility] pressure [facility] Systolic blood 98 mm[Hg] 98 mm[Hg] [facility] s pressure [employer] Respiratory rate 20 /min 20 /min [facility] urs [employer] Body temperature 36.56 May 36.56 May [facility] urs [employer] Heart rate 78 /min 78 /min Bon SecQMedic System Inc Diastolic blood 60 mm[Hg] 60 mm[Hg] [facility] pressure [employer] Systolic blood 110 mm[Hg] 110 mm[Hg] [facility] s pressure [employer] Body mass index 48.95 kg/m2 48.95 kg/m2 [facility] ours (BMI) [Ratio] [employer] Body weight 136.533 kg 136.533 kg Bon [employer] System Inc Respiratory rate 18 /min 18 /min [facility] urs [employer] Body temperature 36.56 May 36.56 May [facility] urs [employer] Heart rate 80 /min 80 /min [facility] [employer] Diastolic blood 70 mm[Hg] 70 mm[Hg] [facility] pressure [employer] Systolic blood 128 mm[Hg] 128 mm[Hg] [facility] s pressure [employer] Oxygen saturation 98 % 98 % [facility] ours in Arterial blood Bela iPierian by Pulse oximetry System [employer] Body mass index 48.95 kg/m2 48.95 kg/m2 [facility] ours (BMI) [Ratio] [employer]ent[employer] [facility] Body weight 136.533 kg 136.533 kg Bon Per[employer] Inc Body height 167 cm 167 cm [email or web address] Respiratory rate 14 /min 14 /min [facility] urs [employer] Body temperature 36.44 May 36.44 May [facility] urs [employer] Heart rate 98 /min 98 /min [email or web address] Diastolic blood 60 mm[Hg] 60 mm[Hg] [facility] pressure [employer] Systolic blood 110 mm[Hg] 110 mm[Hg] [facility] s pressure [employer] Oxygen saturation 96 % 96 % [facility] ours in Arterial blood BelaN-1-1 by Pulse oxim[employer] Respiratory rate 18 /min 18 /min [facility] urs [employer] Body temperature 36.72 May 36.72 May [facility] urs [employer] Heart rate 80 /min 80 /min Bon SecQMedic System Inc Diastolic blood 88 mm[Hg] 88 mm[Hg] [facility] rs pressure [employer] Systolic blood 128 mm[Hg] 128 mm[Hg] [facility] s pressure [employer] Body mass index 48.97 kg/m2 48.97 kg/m2 [facility] ours (BMI) [Ratio] [employer] Body weight 136.578 kg 136.578 kg [facility] Percolate Inc Body height 167 cm 167 cm [employer] Oxygen saturation 98 % 98 % [facility] ours in Arterial blood Bela iPierian by Pulse oxim[employer] System [employer] Body mass index 48.30 kg/m2 48.30 kg/m2 [facility] ours (BMI) [Ratio] [employer] Body weight 134.718 kg 134.718 kg Bon Percolate Inc Body height 167 cm 167 cm [employer] Respiratory rate 14 /min 14 /min [facility] urs [employer]current [employer] Inc Body temperature 37.33 May 37.33 May [facility] [employer] Inc Heart rate 100 /min 100 /min [employer] Diastolic blood 68 mm[Hg] 68 mm[Hg] [facility] rs pressure [employer] Inc Inc Systolic blood 118 mm[Hg] 118 mm[Hg] [facility] s pressure [employer] Inc Oxygen saturation 98 % 98 % [facility] ours in Arterial blood Bela iPierian by Pulse oxim[employer] Body mass index 47.49 kg/m2 47.49 kg/m2 [facility] ours (BMI) [Ratio] [employer] Body weight 132.45 kg 132.45 kg [employer] Body height 167 cm 167 cm [employer] Respiratory rate 12 /min 12 /min [facility] urs [employer]current [employer] Inc Body temperature 36.44 May 36.44 May [facility] urs [employer] Inc Heart rate 88 /min 88 /min [employer] Diastolic blood 70 mm[Hg] 70 mm[Hg] [facility] rs pressure [employer] Inc Inc Systolic blood 102 mm[Hg] 102 mm[Hg] [facility] s pressure [employer] Inc Oxygen saturation 92 % 92 % [facility] ours in Arterial blood Bela iPierian by Pulse oxim[employer] Body mass index 45.86 kg/m2 45.86 kg/m2 [facility] ours (BMI) [Ratio] [employer] Body weight 133.811 kg 133.811 kg [employer] Body height 170.8 cm 170.8 cm [employer] Respiratory rate 12 /min 12 /min [facility] urs [employer]current [employer] Inc Body temperature 36.67 May 36.67 May Bon SDI-Solutiono urs [facility] Heart rate 88 /min 88 /min Bon SDI-Solutionours Concurrent Inc Inc Diastolic blood 80 mm[Hg] 80 mm[Hg] [facility] rs pressure [employer]current Inc Inc Systolic blood 120 mm[Hg] 120 mm[Hg] [facility] s pressure [employer] Inc Inc Oxygen saturation 95 % 95 % [facility] ours in Arterial blood [facility] by Pulse oximetry System [employer] Respiratory rate 18 /min 18 /min [facility] urs [employer] System [employer] Body temperature 36.44 May 36.44 May [facility] urs [employer] Heart rate 100 /min 100 /min [employer] Diastolic blood 80 mm[Hg] 80 mm[Hg] [facility] rs pressure [employer] Inc Inc Systolic blood 123 mm[Hg] 123 mm[Hg] [facility] s pressure [employer] Inc Body mass index 46.99 kg/m2 46.99 kg/m2 [facility] ours (BMI) [Ratio] [employer] Body weight 136.079 kg 136.079 kg Bon Percolate Inc Body height 170.2 cm 170.2 cm [employer] Oxygen saturation 96 % 96 % [facility] ours in Arterial blood [facility] by Pulse oximetry System [employer] Body mass index 45.55 kg/m2 45.55 kg/m2 [facility] ours (BMI) [Ratio] [employer] Body weight 132.904 kg 132.904 kg Bon Percolate Inc Body height 170.8 cm 170.8 cm [employer] Respiratory rate 14 /min 14 /min [facility] urs [employer]current [employer] Inc Body temperature 35.89 May 35.89 May [facility] urs [employer] Inc Heart rate 96 /min 96 /min Bon Percolate Inc Diastolic blood 78 mm[Hg] 78 mm[Hg] [facility] pressure [employer]current Inc Inc Systolic blood 116 mm[Hg] 116 mm[Hg] [facility] s pressure [employer]current [employer] Inc Oxygen saturation 92 % 92 % [facility] in Arterial blood [facility] by Pulse oximetry System [employer] Respiratory rate 15 /min 15 /min [facility] urs [employer] System [employer] Heart rate 96 /min 96 /min [employer] Diastolic blood 86 mm[Hg] 86 mm[Hg] [facility] pressure [employer] Inc Systolic blood 121 mm[Hg] 121 mm[Hg] [facility] s pressure [employer] Inc Body mass index 40.18 kg/m2 40.18 kg/m2 [facility] ours (BMI) [Ratio] [employer] Body weight 127.007 kg 127.007 kg [employer] Body height 177.8 cm 177.8 cm [employer] Body temperature 36.72 May 36.72 May [facility] urs [employer] Inc Body temperature 36.33 May 36.33 May [facility] urs [employer] Inc Oxygen saturation 96 % 96 % [facility] in Arterial blood Bela [employer]Pierian by Pulse oxim[employer] System [employer] Respiratory rate 21 /min 21 /min [facility] urs [employer] Heart rate 85 /min 85 /min [employer] Diastolic blood 88 mm[Hg] 88 mm[Hg] [facility] pressure [employer] Inc Systolic blood 155 mm[Hg] 155 mm[Hg] [facility] s pressure [employer] Inc Body mass index 40.18 kg/m2 40.18 kg/m2 [facility] ours (BMI) [Ratio] [employer] Body weight 127.007 kg 127.007 kg [employer] Body height 177.8 cm 177.8 cm [employer] Oxygen saturation 98 % 98 % [facility] ours in Arterial blood [facility] by Pulse oximetry System [employer] Body mass index 44.66 kg/m2 44.66 kg/m2 [facility] ours (BMI) [Ratio] [employer] Body weight 128.368 kg 128.368 kg [employer] Body height 169.5 cm 169.5 cm [employer] Respiratory rate 12 /min 12 /min [facility] urs [employer] Inc Inc Body temperature 36.28 May 36.28 May [facility] [employer] Inc Heart rate 68 /min 68 /min [employer] Diastolic blood 80 mm[Hg] 80 mm[Hg] [facility] pressure [employer]current Inc Inc Systolic blood 122 mm[Hg] 122 mm[Hg] [facility] s pressure [employer] Patient Treatment Plan of Care Planned Activity [...] [facility] Bela Oral Tablet 12:00:00 AM EDT iPierian Sy[employer] olanzapine 5 MG Oral [...] Se cours Bela Tablet 12:00:00 AM EDT iPierian Syste m Inc [place] Carbonate 300 MG 11/30/2019 [facility] Bela [...] Bela Release Oral Tablet 12:00:00 AM EDT [employer] Bisacodyl 5 MG Delayed 10/31/2019 [facility] Bela Release Oral Tablet 01:50:17 PM EDT [employer] Acetaminophen 325 MG Oral 10/29/2019 Francisco Javier n [facility] Bela Tablet 02:44:40 PM EDT Health Sy[employer] m Inc sodium chloride (NS) flush 10/29/2019 [facility] on [facility] Bela 5-40 mL 11:01:53 AM EDT Health Sy[facility] Inc 24 HR Bupropion 10/17/2019 [facility] Hydrochloride 150 MG 12:00:00 AM EDT [employer] System [employer] Extended Release Oral Tablet 24 HR Bupropion 10/17/2019 [facility]a Hydrochloride 300 MG 12:00:00 AM EDT [employer] System Inc Extended Release Oral Tablet Vraylar 3 mg capsule 09/03/2019 [facility] Bela 12:00:00 AM ED iPierian Sy[employer] Inc Amitriptyline Hydrochloride 08/20/2019 [facility]a 150 MG Oral Tablet 12:00:00 AM [employer] System [employer] [place] Carbonate 150 MG 08/16/2019 [facility] Bela Oral Capsule 12:00:00 AM EST [employer] Prednisone 50 MG Oral 08/16/2019 [facility] Bela Tablet 12:00:00 AM EST iPierian [employer] Cyclobenzaprine 07/21/2019 [facility]a hydrochloride 10 MG Oral 12:00:00 AM EST [employer] System Inc Tablet Acetaminophen 325 MG / 07/21/2019 [facility] Bela Oxycodone Hydrochloride 5 12:00:00 AM EST [employer] System [employer] MG Oral Tablet VRAYLAR 6 mg capsule 07/07/2019 [facility] Bela 12:00:00 AM EST [employer] valacyclovir 1000 MG Oral 07/17/2018 Francisco Javier n [facility] Bela Tablet 12:00:00 AM EST iPierian Sy[employer] m Inc Clonazepam 2 MG Oral Tablet Bon [facility] cariprazine (Vraylar) 6 mg B on [facility] I nc 24 HR Bupropion [facility] Bela Hydrochloride 300 MG Health [facility] Inc Extended Release Oral Tablet fluoxetine HCl (PROZAC PO) B on [facility] ziprasidone 80 MG Oral [facility]
[2020-04-01 15:18] VITALS: BMI 47.4
--- OUTSIDE RECORDS SUMMARY | 2020-04-09 06:09 | XMS ---
[...] is protected by Article 27-F of the [place] Public Health law. If you continue you may haveaccess to information: Regarding HIV / AIDS; Provided by facilities licensed or operated by the [facility] Office of Mental Health; or Provided by the [facility] Office for People With Developmental Disabilities. If such information is present, then the following [facility] mandated warning applies: This information has [...] S [facility]ours Bela PM EDT - 01/12/2020 [facility] 10:23:35 AM EDT Patient discharged. Attender: MARIYA CATHERINE 01/01/2020 12:00:00 AM Bon [facility] Attender: MAURICIO 12/30/2019 12:00:00 AM [facility] Attender: MARIYA CATHERINE 12/29/2019 12:00:00 AM [facility] 12/25/2019 04:00:00 PM [facility] 12[facility] 06:48:40 [facility] PM EDT Patient discharged. OL 12/25/2019 [facility] 11:59:00 PM EDT Attender: MARIYA 12/25/2019 12:00:00 AM [facility] Attender: SUSI LONGO 12/25/2019 12:00:00 AM [facility] Attender: MAURICIO 12/24/2019 12:00:00 AM [facility] Attender: MARIYA 12/22/2019 12:00:00 AM [facility] Attender: SUSI LONGO 12/22/2019 12:00:00 AM [facility] Attender: MAURICIO 12/19/2019 12:00:00 AM [facility] Attender: MARIYA 12/18/2019 12:00:00 AM [facility] Attender: GLADIS FUNEZ 12/18/2019 12:00:00 AM [facility] Attender: SUSI LONGO 12/17/2019 12:00:00 AM [facility] Attender: MAURICIO 12/16/2019 12:00:00 AM Bon [facility]: MARIYA 12/15/2019 12:00:00 AM [facility] Attender: XANDER COLBERT 12/13/2019 12:00:00 AM Bon [facility] Outpatient 12/12/2019 12:00:00 PM Francisco Javier n [facility] EDT - 12/12/2019 [facility] Inc 01:20:23 PM EDT Patient discharged. Attender: ROSSI 12/08/2019 05:55:36 [facility] - [facility]02[facility]2020 [facility] 12:00:00 AM EDT System In c Inpatient Admitter: RITIKA 12/05/2019 12:00:00 General [facility] AM EDT - 12/08/2019 [facility] 03:44:00 PM EDT General Weakness Patient discharged. Outpatient 12/05/2019 12:00:00 AM EDT [facility] Outpatient 12/01/2019 03:45:00 PM EDT - [facility] 12/01/2019 05:01:16 PM EDT Inc Patient discharged. Outpatient 11/14/2019 01:00:00 PM EDT - [facility] 11/18/2019 11:56:43 AM EDT System Inc Patient discharged. Outpatient 11/10/2019 09:00:00 AM EDT - [facility] 11/10/2019 04:44:05 PM EDT System Inc Patient discharged. Inpatient Admitter: RITIKA CANAS 10/29/2019 12:00:00 AM let hargic [facility] EDT - 11/03/2019 [facility] 04:02:00 PM EDT lethargic Patient discharged. Outpatient 09/15/2019 08:22:58 AM EDT [facility] - 09/15/2019 11:59:00 PM Hospital EDT Outpatient 09/10/2019 04:00:00 PM EDT [facility] Outpatient 09/04/2019 03:15:00 PM EDT [facility] Outpatient 08/19/2019 07:31:00 AM EST [facility] ([facility]) Outpatient 08/18/2019 06:35:00 AM EST [facility] ([facility]) Outpatient 08/17/2019 07:16:00 AM EST [facility] ([facility]) Emergency 08/16/2019 12:00:00 AM EST Shortness of Breath [facility] - 08/16/2019 10:45:00 PM Hospital EST Shortness of Breath Patient discharged. Outpatient 08/11/2019 12:05:00 AM EST [facility] Emergency 08/10/2019 12:00:00 AM EST - Chest P ain [facility] 08/11/2019 01:42:00 AM EST Hospital Chest Pain Patient discharged. Outpatient 07/21/2019 04:15:00 PM EST - [facility] [address] 07/22/2019 10:51:43 AM EST System Inc Patient discharged. Immunizations Vaccine Date Status Description Data Source(s) New in 2012. 09/04/2019 completed Influenza Vaccine 09/04/2019 [facility]IV[facility] 12:00:00 AM EDT (Quad) [facility] Medications Medication Brand Start Product Dose Route Administrative Pharmacy [facility] Indications Reaction Description Data Name Date Form [...] Tablet tablet 5 mg EDT dose (after [facility] OLANZapine [facility] (ZyPREXA) modification) S ystem tablet 5 mg on Tue Inc 12/09/19 at 0900, Until Discontinued Medication administered onsite Olmesartan olmesartan 12/09/2019 20 Oral completed h ypertension Take 1 Tab by Bon medoxomil (BENICAR) 12:00:00 AM mg paul th daily [facility] 20 MG Oral 20 mg EDT for 30 days. Bela Tablet tablet Indications: [facility] olmesartan high blood Sys tem (BENICAR) pressure Inc 20 mg tablet hypertension Losartan losartan 12/09/2019 50 Oral active hypertension Take 1 Tab by Bon Potassium (COZAAR) 12:00:00 AM mg mout h daily [facility] 50 MG Oral 50 mg EDT for 30 days. Bela Tablet tablet Indications: [facility] losartan high blood Syste m (COZAAR) [...] doses, Ch arity clonazePAM mg First dose [facility] (KlonoPIN) (after last Sy stem tablet 0.5 modification) Inc mg on 12/07/19 at 1600, Last dose on Denise 12/11/19 at 0900 Medication administered onsite olanzapine OLANZapine 12/07/2019 2.5 Oral aborted 2.5 mg, Oral, Bon 2.5 MG Oral (ZyPREXA) 02:00:00 PM mg D AILY, [facility] Tablet tablet 2.5 EDT dose on Sun Bela OLANZapine mg 12/07/19 at [facility] (ZyPREXA) 1400, Until Sys tem tablet 2.5 Discontinued I nc mg Medication administered onsite [place] lithium 12/07/2019 300 Oral active 300 mg , Oral, Bon Carbonate carbonate SR 02:00:00 PM mg 2 TIMES DAILY, [facility] 300 MG (LITHOBID) EDT First dose o n Bela Extended tablet [address] [facility] Release Oral mg 1400, Until System Tablet Discontinued Inc lithium carbonate SR (LITHOBID) tablet 300 mg Medication administered onsite Losartan losartan 12/07/2019 50 Oral active 50 m g, Oral, Bon Potassium 50 (COZAAR) 01:00:00 PM mg D AILY, [facility] MG Oral tablet 50 EDT dose on Sun Bela Tablet mg 12/07/[address] [facility] losartan 1300, Until Syst em (COZAAR) Discontinued Inc tablet 50 mg Medication administered onsite furosemide 20165-635-07 12/07/2019 20 IntraVENous complete d 20 mg, [...] 12/13/19 at 0900 Medication administered onsite furosemide 63407-503-13 12/06/2019 20 IntraVENous complete d edema 20 [...] il mg Discontinued Medication administered onsite 0.9% 2535-2609-27 12/05/2019 100 IntraVENous aborted 100 mL/hr, at [...] mg tablet Inc Shared psychotic disorder (HCC) [place] lithium 11/30/2019 aborted Bon Carbonate 300 carbonate [...] (DULCOLAX) 5 Inc mg EC tablet cariprazine 111814 11/01/2019 6 mg Oral active 6 m [...] Ointment ointment EDT Firs t dose on [facility] hydrocortisone 11/01/[address] [facility] (HYTONE) 2.5 % 1800, Unti l System ointment Discontinued Inc Medication administered onsite Docusate docusate 10/31/2019 200 Oral active 200 mg, Oral, Bon Sodium 100 sodium 02:00:00 PM mg DAILY , [facility] MG Oral (COLACE) EDT dose on Sun C harity Capsule capsule 200 10/31/[address] [facility] docusate mg 1400, Until Syst em [...] haloperidoL tablet 5 mg EDT ONCE, 1 [facility] (HALDOL) dose, [facility] tablet 5 mg Denise System 10/30/19 [facility] at 2100 Medication administered onsite amitriptyline 10/30/2019 150 mg Oral active 1 50 mg, Oral, Bon (ELAVIL) tablet 09:00:00 PM EV AN BEDTIME, [facility] 150 mg EDT First dose on [facility] ity Denise 10/30/[address] [facility] 2100, Until System I nc Discontinued Medication administered onsite Haloperidol 2 haloperidoL 10/30/2019 2 mg Oral aborted 2 mg, Oral, Bon MG Oral (HALDOL) 08:01:20 PM EVERY 6 [facility] Tablet tablet 2 mg EDT HOURS Ch arity haloperidoL NEEDED, Healt h (HALDOL) Starting Denise Sys tem tablet 2 mg 10/30/19 at [facility] 2000, Until Sun10/31/19 at 2043, Psychosis, Agitation Medication administered onsite [place] lithium 10/30/2019 300 Oral active 300 mg , Oral, Bon Carbonate carbonate 12:00:00 PM mg 2 T IMES DAILY, [facility] 300 MG Oral tablet 300 EDT First d ose on Bela Tablet mg Denise 10/30/19 at [facility] lithium 1200, Until Syste m carbonate Discontinued In c tablet 300 mg Medication administered onsite Clonazepam 1 clonazePAM 10/30/2019 1 mg Oral active 1 mg, Oral, 2 Bon MG Oral (KlonoPIN) 12:00:00 PM TIME S DAILY, [facility] Tablet tablet 1 mg EDT First dose on Bela clonazePAM Denise 10/30/[address] [facility] (KlonoPIN) 1200, Until Sy stem tablet 1 mg Discontinued [facility] Medication administered onsite 0.9% 0018-8502-95 10/29/2019 100 IntraVENous aborted 100 mL/hr, at Bon sodium 02:55:00 PM mL/h 100 mL/hr, [facility] chloride EDT IntraVENous, Jagruti rity infusion CONTINUOUS, Starting Wed System 10/29/19 at [facility] 1455, Until 11/01/19 at 1446 Medication administered onsite 0.4 ML enoxaparin 10/29/2019 40 SubCUTAneous active 40 mg, Bon Enoxaparin (LOVENOX) 02:55:00 PM mg Gallardo bCUTAneous, [facility] sodium 100 injection 40 EDT EVERY 24 Bela MG/ML mg HOURS, First [facility] Prefilled dose on Sun Sys tem Syringe 10/29/19 at [facility] enoxaparin 1455, Until (LOVENOX) Discontinued injection 40 mg Medication administered onsite Acetaminophen acetaminophen 10/29/2019 650 Oral active 650 mg, Oral, Bon 325 MG Oral (TYLENOL) 02:44:40 PM mg E VERY 4 HOURS [facility] Tablet tablet 650 mg EDT NEEDED , Bela acetaminophen Starting We [facility] (TYLENOL) [facility]29[facility] mg 1444, Until [facility] Discontinued, Mild Pain, Fever Medication administered onsite sodium 01980-586-25 10/29/2019 mL IntraVENous active 5-40 mL, Bon chloride 02:00:00 PM IntraVENo us, [facility] (NS) flush EDT EVERY 8 Charit y 5-40 mL HOURS, First dose on Wed System 10/29/19 at [facility] 1400, Until Discontinued Medication administered onsite sodium 23215-124-47 10/29/2019 mL IntraVENous active 5-40 mL, Bon [...] XL) 150 mg tablet Vraylar 3 mg 17870-580-79 09/03/2019 6 Oral aborted depre ssion Take [...] EST NOW, 1 Bela chewable tablet dose, [facility] 162 mg 08/16/19 System at 2103 Inc Medication administered onsite famotidine 08/16/2019 20 IntraVENous aborted 20 mg, Bon (PF) (PEPCID) 09:02:00 PM mg Intr aVENous, [facility] 20 mg in 0.9% EST EVERY 12 Ch arity sodium HOURS, First Healt h chloride 10 dose on [facility] ystem mL injection 08/16/19 at I nc 2102, Until Discontinued Medication administered onsite methylPREDNISolone 565508 08/16/2019 125 IntraVENous comple hyun 125 mg, Bon (PF) (Solu-MEDROL) 09:02:00 PM mg IntraVENous, [facility] injection 125 mg EST NOW, 1 d ose, Bela 08/16/19 Health at 2102 System Inc Medication administered onsite 0.9% 6910-9331-58 08/16/2019 1000 IntraVENous completed 1,000 mL, at [...] mg tablet for 3 System days. Inc [place] lithium 08/16/2019 2 Oral active Take 2 [...] Health tablet 162 mg Sun System 08/10/19 [facility] at 2352 Medication administered onsite Cyclobenzaprine [...] back pain due to trauma VRAYLAR 6 59757-921-87 07/07/2019 6 mg Oral aborted Bipolar Take [...] FOR 10 DAYS Herpes zoster cephalicus cariprazine [id number] 6 mg Oral aborted Take 6 m g [facility] (Vraylar) 6 mg by mouth C harity capsule daily. [facility] [employer] ziprasidone 80 MG ziprasidone 80 mg Oral aborted Take 80 mg [facility] Oral Capsule (GEODON) 80 mg by mouth Bela ziprasidone capsule two (2) He alth (GEODON) 80 mg times Syst em Inc capsule daily (with meals). fluoxetine HCl 60 mg Oral aborted Take 6 0 mg [facility] (PROZAC PO) by mouth Moira ity daily. [facility] [employer] Clonazepam 2 MG clonazePAM 1 mg Oral [...] [place] Inform ation relationship to boland [facility] [id number] [facility] [id number] [facility] HEALTH PLAN [id number] [facility] HMO [id number] [employer] PLAN Commerical [id number] [facility] [id number] [facility] [id number] 900 HEALTH PLAN [facility] [id number] [facility] [id number] 900 HEALTH PLAN POLO [id number] POLO [id number] [employer]IG[employer] PPO [id number] [facility] PPO [id number] [place] 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 [id number] COMPENSATION [facility] HEALTH PLAN O [id number] 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 [id number] COMPENSATION [facility] [id number] GENERIC [id number] COMMERCIAL [facility] [id number] PLAN [facility] GENERIC Commerical [id number] [facility] PPO [id number] PLAN [facility] [id number] PLAN 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 [id number] COMPENSATION [facility] [id number] [facility] HEALTH PLAN PPO [id number] [facility] Problems, Conditions, and Diagnoses Code Display Name Description Problem Type Effective Data Dates Source(s) T88.7XXA Psx-uhqu-pdsdbkq Okq-qucv-[id number] 12/05/2019 Francisco Javier n [facility] adverse reaction to adverse reaction to 12:00:0 0 AM Bela medication medication [facility] [employer] T50.905A Adverse drug Adverse drug [id number] 12/05/2019 [place] s reaction, initial reaction, initial 12:00:00 AM [facility] encounter encounter [facility] [employer] G93.40 Encephalopathy acute Encephalopathy acute [id number] 12/04 [facility] 12:00:00 AM Bela [employer] F31.4 Bipolar disorder with Bipolar disorder [id number] 10/29/19 20 [facility] severe depression with severe 12:00:00 AM [facility] depression [employer] E55.9 Vitamin D deficiency Vitamin D deficiency [id number] 09/03 [facility] 12:00:00 AM Bela [employer] F41.8 Mixed anxiety and Mixed anxiety and [id number] 09/04/2019 [facility] depressive disorder depressive disorder 12:00:0 0 AM [facility] E66.01 Morbid obesity Morbid obesity [id number] 07/21/2019 Bon [facility] 12:00:00 AM [facility] Z98.84 Status post gastric Status post gastric [id number] 020 [facility] bypass for obesity bypass for obesity 12:00:00 AM [facility] F32.9 Depressive disorder Depressive disorder [id number] 020 [facility] 12:00:00 AM [facility] F31.9 Bipolar disorder Bipolar disorder [id number] 07/21/2019 Francisco Javier n [facility] 12:00:00 AM [facility] F41.9 Anxiety Anxiety [id number] 07/21/2019 [facility] 12:00:00 AM [facility] G25.2 Other specified forms Other specified Diagnosis 0 [facility] of tremor forms of tremor 03:17:29 PM [facility] F31.4 Bipolar disorder, Bipolar disorder, Diagnosis 12/25/2019 [facility] - Good current episode current episode 04:40:00 PM [facility] depressed, severe, depressed, severe, EDT Hospital without psychotic without psychotic features features F41.9 Anxiety disorder, Anxiety disorder, Diagnosis 12/25/2019 [facility] unspecified unspecified 04:04:24 PM [facility] R25.1 Tremor, unspecified Tremor, unspecified Diagnosis [facility] 04:04:24 PM [facility] Z98.84 Bariatric surgery Bariatric surgery Diagnosis 12/25/2019 [facility] status status 04:04:24 PM [facility] T88.7XXA Unspecified adverse Unspecified adverse Diagnosis [facility] - Good effect of drug or effect of drug or 11:10:37 AM [facility] medicament, initial medicament, initial EDT Hospital encounter encounter G93.40 Encephalopathy, Encephalopathy, Diagnosis 12/05/2019 [facility] - Good unspecified unspecified 11:10:37 AM [facility] R41.82 Altered mental Altered mental Diagnosis 12/05/2019 [facility] - Good status, unspecified status, unspecified 11:10:3 7 AM [facility] F51.04 Psychophysiologic Psychophysiologic Diagnosis 11/14/2019 [facility] insomnia insomnia 01:22:52 PM [facility] F32.2 Major depressive Major depressive Diagnosis 09/15/2019 [facility] - Good disorder, single disorder, single 08:22:58 AM S amaritan episode, severe episode, severe EDT Hosp ital without psychotic without psychotic features features F41.8 Other specified Other specified Diagnosis 09/04/2019 [facility] anxiety disorders anxiety disorders 03:49:01 PM [facility] F32.2 Major depressive Major depressive Diagnosis 09/04/2019 Francisco Javier n [facility] disorder, single disorder, single 03:49:01 PM C harity episode, severe episode, severe EDT Heal th without psychotic without psychotic System Inc features features Z23 Encounter for Encounter for Diagnosis 09/04/2019 [facility] immunization immunization 03:49:01 PM [facility] T78.40XA Allergy, unspecified, Allergy, Diagnosis 08/16/2019 [facility] [place] encounter unspecified, initial 08:39:16 PM [facility] R06.00 Dyspnea, unspecified Dyspnea, unspecified Diagnosis 08/10 [facility] 11:27:27 PM [facility] F31.75 Bipolar disorder, in Bipolar disorder, in Diagnosis 07/21 [facility] partial remission, partial remission, 04:40:28 PM [facility] most recent episode most recent episode [facility] Surgeries/Procedures Procedure Description Date Indications Data Source(s) HC HC Routine 12/25/2019 Bipolar 12/25/2019 Bipolar Francisco Javier n LITHIUM LITHIUM 4:41 PM EDT disorder 04:41:00 PM disorde r [facility] with severe EDT with severe [facility] depression depression He alth (HCC) ([facility] System Inc Bipolar disorder with severe depression ([facility]) GLUCOSE, POC GLUCOSE, POC Routine 12/08/2019 12/08/2019 Bon 11:35 AM 11:35:00 AM Sec ours EDUC [facility] METABOLIC METABOLIC Routine 12/07/2019 12/07/2019 Bon PANEL, BASIC PANEL, BASIC 4:40 AM EDT 04:40:00 A M [facility] EEG 12-26 HR EEG 12-26 HR Routine 12/06/2019 12/06/2019 Bon W/VIDEO W/VIDEO 10:25 AM 10:25:08 AM [facility] L[facility]UM HC LITHIUM Routine 12/06/2019 12/06/2019 Bon 4:25 AM EDT 04:25:00 AM [facility] LACTIC ACID HC LACTIC ACID STAT 12/05/2019 020 Bon 7:20 PM EDT 07:20:00 PM [facility] EDT [facility] HC AMMONIA HC AMMONIA STAT 12/05/2019 12/05/2019 Bon 7:20 PM EDT 07:20:00 PM [facility] MRI BRAIN WO MRI BRAIN WO STAT 12/05/2019 12/05/2019 Bon CONT CONT 4:50 PM EDT 04:50:12 PM [facility] EEG 12-26 HR EEG 12-26 HR STAT 12/05/2019 12/05/2019 Bon W/VIDEO W/VIDEO 3:19 PM EDT 03:19:24 PM [facility] CULTURE, URINE CULTURE, URINE Routine 12/05/2019 020 Bon 2:45 PM EDT 02:45:00 PM [facility] URINALYSIS W/ URINALYSIS W/ STAT 12/05/2019 0 Bon RFLX RFLX 2:45 PM EDT 02:45:00 PM [facility] MICROSCOPIC [facility]IC [facility] BILIRUBIN, BILIRUBIN, Routine 12/05/2019 12/05/2019 Bon CONFIRM CONFIRM 2:45 PM EDT 02:45:00 PM [facility] LACTIC ACID HC LACTIC ACID STAT 12/05/2019 020 Bon 12:40 PM 12:40:00 PM [facility] CULTURE HC CULTURE STAT 12/05/2019 12/05/2019 Bon BLOOD BLOOD 12:38 PM 12:38:00 PM Sec ours EDT EDT [facility] PROTHROMBIN PROTHROMBIN STAT 12/05/2019 12/05/2019 Bon TIME + INR TIME + INR 12:38 PM 12:38:00 PM [facility] EDT [facility] CBC WITH CBC WITH STAT 12/05/2019 12/05/2019 Bon AUTOMATED DIFF AUTOMATED DIFF 12:38 PM 12:38:00 PM [facility] EDT EDT [facility] HC TROPONIN I HC TROPONIN I STAT 12/05/2019 0 Bon QUANT QUANT 12:38 PM 12:38:00 PM Sec ours EDT EDT [facility] METABOLIC METABOLIC STAT 12/05/2019 12/05/2019 Bon PANEL, PANEL, 12:38 PM 12:38:00 PM Sec ours COMPREHENSIVE COMPREHENSIVE EDT EDT [facility] MAGNESIUM MAGNESIUM STAT 12/05/2019 12/05/2019 Bon 12:38 PM 12:38:00 PM Sec ours EDT EDT [facility] HC LITHIUM HC LITHIUM STAT 12/05/2019 12/05/2019 Bon 12:38 PM 12:38:00 PM Sec ours EDT EDT [facility] CT HEAD WO CT HEAD WO STAT 12/05/2019 12/05/2019 Bon CONT CONT 12:30 PM 12:30:54 PM Sec ours EDT EDT [facility] HC CULTURE HC CULTURE STAT 12/05/2019 12/05/2019 Bon BLOOD BLOOD 12:30 PM 12:30:00 PM Sec ours EDT EDT [facility] XR PELV AP XR PELV AP STAT 12/05/2019 12/05/2019 Bon ONLY ONLY 12:14 PM 12:14:58 PM Sec ours EDT EDT [facility] XR CHEST PORT XR CHEST PORT STAT 12/05/2019 0 Bon 12:14 PM 12:14:51 PM Sec ours EDT EDT [facility] RT--OXYGEN RT--OXYGEN STAT 12/05/2019 12/05/2019 Bon CANNULA CANNULA 11:20 AM 11:20:37 AM Sec ours EDT EDT [facility] EEG DIGITAL EEG DIGITAL Routine 12/05/2019 12/05/2019 Bon ANALYSIS ANALYSIS 11:10 AM 11:10:37 AM S [facility] EDT EDT [facility] CBC WITH CBC WITH STAT 10/30/2019 10/30/2019 Bon AUTOMATED DIFF AUTOMATED DIFF 6:40 AM EDT 06:40: 00 AM [facility] EDT [facility] METABOLIC METABOLIC STAT 10/30/2019 10/30/2019 Bon PANEL, BASIC PANEL, BASIC 6:40 AM EDT 06:40:00 A M [facility] EDT [facility] URINALYSIS W/ URINALYSIS W/ STAT 10/29/2019 0 Bon RFLX RFLX 6:34 PM EDT 06:34:00 PM [facility] MICROSCOPIC MICROSCOPIC EDT [facility] XR CHEST PORT XR CHEST PORT STAT 10/29/2019 0 Bon 12:09 PM 12:09:04 PM Sec ours EDT EDT [facility] CT HEAD WO CT HEAD WO STAT 10/29/2019 10/29/2019 Bon CONT CONT 11:47 AM 11:47:42 AM Sec ours EDT EDT [facility] HC GLUCOSE HC GLUCOSE Routine 10/29/2019 10/29/2019 Bon POCT POCT 11:26 AM 11:26:00 AM Sec ours EDT EDT [facility] PROTHROMBIN PROTHROMBIN STAT 10/29/2019 10/29/2019 Bon TIME + INR TIME + INR 10:45 AM 10:45:00 AM [facility] EDT EDT [facility] CBC WITH CBC WITH STAT 10/29/2019 10/29/2019 Bon AUTOMATED DIFF AUTOMATED DIFF 10:45 AM 10:45:00 AM [facility] EDT EDT [facility] HC PARTIAL HC PARTIAL STAT 10/29/2019 10/29/2019 Bon THROMBOPLASTIN THROMBOPLASTIN 10:45 AM 10:45:00 AM [facility] / PTT / PTT EDT EDT [facility] METABOLIC METABOLIC STAT 10/29/2019 10/29/2019 Bon PANEL, PANEL, 10:45 AM 10:45:00 AM Sec [facility] COMPREHENSIVE COMPREHENSIVE EDT EDT [facility] HC LITHIUM HC LITHIUM STAT 10/29/2019 10/29/2019 Bon 10:45 AM 10:45:00 AM Sec ours EDT EDT [facility] XR SPINE LUMB XR SPINE [...] n [facility] 9:00 PM EST 02:00:00 AM [facility] I nc CBC WITH AUTOMATED CBC WITH STAT 08/16/2019 0 [facility] DIFF AUTOMATED DIFF 9:00 PM EST 02:00:00 AM [facility] I nc TROPONIN I TROPONIN I STAT 08/16/2019 08/17/2019 [facility] 9:00 PM EST 02:00:00 AM [facility] I nc METABOLIC PANEL, METABOLIC PANEL, STAT 08/16/2019 [facility] COMPREHENSIVE COMPREHENSIVE 9:00 PM EST 02:00:00 AM [facility] I nc MAGNESIUM MAGNESIUM STAT 08/16/2019 08/17/2019 [facility] 9:00 PM EST 02:00:00 AM [facility] Haload [facility] I nc LITHIUM LITHIUM STAT 08/16/2019 08/17/2019 [facility] 9:00 PM EST 02:00:00 AM [facility] Haload [facility] I nc INFLUENZA A <td><content ID="[id number]">INFLUENZA A & B 07/26 [facility] (RAPID 05:18:00 [facility] (RAPID TEST) TEST)</content></td><td>STAT</td><td>08/11/2019 EST [facility] 12:18 AM EST</td><td></td><td><paragraph Health styleCode="header">Results for this procedure are System in the <content Inc styleCode="[id number]">results section</content>.</paragraph></td> PROTHROMBIN TIME + PROTHROMBIN TIME STAT 08/11/2019 0 08/11/2019 [facility] INR + INR 12:01 AM EST 05:01:00 AM [facility] nc D DIMER D DIMER STAT 08/11/2019 08/11/2019 [facility] 12:01 AM EST 05:01:00 AM [facility] nc CBC WITH AUTOMATED CBC WITH STAT 08/11/2019 0 [facility] DIFF AUTOMATED DIFF 12:01 AM EST 05:01:00 AM [facility] nc PTT PTT STAT 08/11/2019 08/11/2019 [facility] 12:01 AM EST 05:01:00 AM [facility] nc TROPONIN I TROPONIN I STAT 08/11/2019 08/11/2019 [facility] 12:01 AM EST 05:01:00 AM [facility] nc METABOLIC PANEL, METABOLIC PANEL, STAT 08/11/2019 [facility] COMPREHENSIVE COMPREHENSIVE 12:01 AM EST 05:01:0 0 AM [facility] nc MAGNESIUM MAGNESIUM STAT 08/11/2019 08/11/2019 [facility] 12:01 AM EST 05:01:00 AM [facility] nc LITHIUM LITHIUM STAT 08/11/2019 08/11/2019 [facility] 12:01 AM EST 05:01:00 AM [facility] nc LACTIC ACID LACTIC ACID STAT 08/11/2019 08/11/2019 [facility] 12:01 AM EST 05:01:00 AM [facility] nc BNP BNP STAT 08/11/2019 08/11/2019 [facility] 12:01 AM EST 05:01:00 AM [facility] nc RT--OXYGEN CANNULA RT--OXYGEN STAT 08/10/2019 020 [facility] CANNULA 11:51 PM EST 04:51:27 AM [facility] nc EKG, 12 LEAD, EKG, 12 LEAD, STAT 08/10/2019 0 [facility] INITIAL INITIAL 10:14 PM EST 03:14:27 AM [facility] I nc Results ID Date Data Source [id number] 04/05/2020 09:40:00 AM EDT [facility] Name Value Range Interpretation Description Data Sup porting Code Source(s) Document(s ) SARS [facility] coronavirus 2 RNA This lab was ordered by [facility] moy [facility] and reported by [facility]. ID Date Data Source [id number] 04/02/2020 09:00:00 AM EDT [facility] Name Value Range Interpretation Description Data Sup porting Code Source(s) Document(s ) SARS [facility] coronavirus 2 RNA This lab was ordered by [facility] moy [facility] and reported by [facility]. ID Date Data Source [id number] 03/29/2020 08:58:00 AM EDT [facility] Name Value Range Interpretation Description Data Sup porting Code Source(s) Document(s ) SARS [facility] coronavirus 2 RNA [facility] and reported by [facility]. ID Date Data Source [id number] 03/25/2020 09:42:00 AM EDT [facility] Name Value Range Interpretation Description Data Sup porting Code Source(s) Document(s ) SARS [facility] coronavirus 2 RNA This lab was ordered by [facility] moy [facility] and reported by [facility]. ID Date Data Source [id number] 03/22/2020 09:00:00 AM EDT [facility] Name Value Range Interpretation Description Data Sup porting Code Source(s) Document(s ) SARS [facility] coronavirus 2 RNA This lab [facility] and reported by [facility]. ID Date Data Source [id number] 03/19/2020 10:37:00 AM EDT [facility] Name Value Range Interpretation Description Data Sup porting Code Source(s) Document(s ) SARS [facility] coronavirus 2 RNA This lab was ordered by [facility] and reported by [facility]. ID Date Data Source [id number] 03/15/2020 10:30:00 AM EDT [facility] Name Value Range Interpretation Description Data Sup porting Code Source(s) Document(s ) SARS [facility] coronavirus 2 RNA This lab was ordered by [facility] and reported by [facility]. ID Date Data Source [id number] 03/12/2020 12:00:00 PM EDT [facility] Name Value Range Interpretation Description Data Sup porting Code Source(s) Document(s ) SARS [facility] coronavirus 2 RNA This lab was ordered by [facility] and reported by [facility]. ID Date Data Source [id number] 03/08/2020 10:18:00 AM EDT [facility] Name Value Range Interpretation Description Data Sup porting Code Source(s) Document(s ) SARS [facility] coronavirus 2 RNA This lab was ordered by [facility] and reported by [facility]. ID Date Data Source [id number] 03/04/2020 09:50:00 AM EDT [facility] Name Value Range Interpretation Description Data Sup porting Code Source(s) Document(s ) SARS [facility] coronavirus 2 RNA This lab was ordered by [facility] and reported by [facility]. ID Date Data Source [id number] 03/02/2020 12:15:00 PM EDT [facility] Name Value Range Interpretation Description Data Sup porting Code Source(s) Document(s ) SARS [facility] coronavirus 2 RNA This lab was ordered by [facility] and reported by [facility]. ID Date Data Source [id number] 02/27/2020 09:15:00 AM EDT [facility] Name Value Range Interpretation Description Data Sup porting Code Source(s) Document(s ) SARS [facility] coronavirus 2 RNA This lab was ordered by [facility] and reported by [facility]. ID Date Data Source [id number] 02/23/2020 11:40:00 AM EDT [facility] Name Value Range Interpretation Description Data Sup porting Code Source(s) Document(s ) SARS [facility] coronavirus 2 RNA This lab was ordered by [facility] and reported by [facility]. ID Date Data Source [id number] 02/19/2020 09:56:00 AM EDT [facility] Name Value Range Interpretation Description Data Sup porting Code Source(s) Document(s ) SARS [facility] coronavirus 2 RNA [facility] and reported by [facility]. ID Date Data Source [id number] 02/16/2020 08:40:00 AM EDT [facility] Name Value Range Interpretation Description Data Sup porting Code Source(s) Document(s ) SARS [facility] coronavirus 2 RNA This lab was ordered by [facility] and reported by [facility]. ID Date Data Source [id number] 02/13/2020 10:05:00 AM EDT [facility] Name Value Range Interpretation Description Data Sup porting Code Source(s) Document(s ) SARS [facility] coronavirus 2 RNA This lab was ordered by [facility] and reported by [facility]. ID Date Data Source [id number] 02/09/2020 10:25:00 AM EDT [facility] Name Value Range Interpretation Description Data Sup porting Code Source(s) Document(s ) SARS [facility] coronavirus 2 RNA This lab was ordered by [facility] and reported by [facility]. ID Date Data Source [id number] 01/25/2020 09:20:00 AM EDT [facility] Name Value Range Interpretation Description Data Sup porting Code Source(s) Document(s ) 2019 Novel [facility] Coronavirus RNA Interpretation Unspecified Specimen Qualitative CATA Probe Detection This lab was ordered by [facility] and reported by [facility]. ID Date Data Source [id number] 12/25/2019 05:54:30 PM EDT [facility] Name Value Range Interpretation Description Data Sup porting Code Source(s) Document(s ) [place] 0.38 0.6-1.2 Below low normal [facility] [Moles/volu MMOL/L [facility]] in Hospital Serum or Plasma ID Date Data Source [id number] 12/23/2019 01:50:56 PM EDT [facility] Discharge SummaryPatient: Maxwell Hagen e Sex: male DOA: 12/05/2019Date of : 1970 A ge: 49 y.o. LOS: LOS: 3 daysAdmit Date: 12/05/2019Discharge Date: 12/08/2019 Admission Diagnoses: Encephalopathy acute [G93.40];Izv-knlr-qrtqvtc adversereactio n to medication [T88.7XXA];Glz-dvpn-ufkznee adverse reaction tomedication [T88.7XXA] Discharge Diagnoses: #1 [...] ICD-10-CM: T50.905AICD -9-CM: E947.9 12/05/2019 - Present Lbo-nepf-pqftyqu adverse reaction to med ication ICD-10-CM: T88.3UOSSHM-1-KM: 995.20 12/05/2019 - Present Bipolar disorder wit [...] E66.01ICD-9-CM: 278.01 07/19/2018 - Present Spells ICD-10-CM: [id number]-6-IN: IMO00 01 04/08/2016 - Present Seizure disorder [...] Supporting Document(s ) ID Date Data Source [id number] 12/09/2019 02:14:04 PM EDT [facility] referral made. Walker [facility].Faxed to Moriah at [facility] [place] at FAX [phone]. She reports they ne ed to get authfor walker. Have instucted pt to buy own walker IF not authorized.He i s agreeable to buying walker if needs to.Care Management InterventionsPCP Verified by CM: YesTransition of Care Consult (CM Consult): Home HealthBon [employer] Home Car e: YesCurrent Support Network: Own Home, Lives with SpouseThe Patient and/or Prachi ent Statistical Reporting Analyst was Provided with a Choice of Providerand Agrees with the Discharge Plan?: YesFreedom of Choice List was Provided with Basic Dialogue that Suppor ts thePatient's Individualized Plan of Care/Goals, Treatment Preferences and Sh aresthe Quality Data Associated with the Providers?: YesVeteran Resource Informat ion Provided?: RefusedDischarge LocationDischarge Placement: Home [facility](ACCEPTED BY [facility])Pt is discharged , picking him up. reports she has phone number tomake pt a follow up psych appt. [facility] to visit. will buy walker if not able to get thru [facility] [place].Post dc note 12/08[employer] reports 50% copay - they lef t message on 's phone.I also, left a message with my call back number for any questions. hadreported to me she planned on buying a walker and would ret urn if insurance paidfor one. Name Value Range Interpretation Code Description [facility] Supporting Document(s ) ID Date Data Source [id number] 12/08/2019 03:06:17 PM EDT [facility] I have reviewed discharge instructions w ith the patient. The patient verbalizedunderstanding.Discussed with t he patient and all questioned fully answered. He will call me ifany problems arise.If you experience chest pain call 911. [address] yourself.Patient armband removed a nd shredded. IV removed and discharged home stable. Name Value Range Interpretation Code Description Data [facility] Supporting Document(s ) ID Date Data Source [id number] 12/08/2019 03:02:56 PM EDT [facility] Per your note, pt with acute encephalopa thy and toxic Serum [place] level.Please specify the type of encephalopathy in yo ur progress notes: Toxic encephalopathy due to lithium Metabolic encephalopathy due to Other cause (please specify) Clinically unable to determine UnknownPLEASE DOCUM ENT ANY ADDITIONAL DIAGNOSES AND/OR SPECIFICITY IN THE PROGRESSNOTES AND/OR DISCHARGE SUMMARY. Name Value Range Interpretation Code Description Data Melani rce(s) Supporting Document(s ) ID Date Data Source [id number] 12/08/2019 02:40:45 PM EDT [facility] Problem: SuicideGoal: *STG: Remains safe in hospital12/08/2019 [...] Ru Mosher: Progressing Towards GoalGoal: *LTG: [facility] [employer]12/08/2019 1440 by Mosher, KatyOutcome: Resolved/Met12/08/2019 1439 by [...] Fall R isk and appropriate interventions in [facility].12/08/2019 1440 by Dviya Mosherome: Resolved/MetNote: Fall Risk Interventions:Mobility Interventions: Be [...] Patient Education ActivityGoal: Patient/Family Education12/08/2019 1440 b Basilio Perkinscome: Resolved/Met12/08/2019 1439 by Ru Mosher: Progressing T lizbethards GoalProblem: Pressure Injury - Risk ofGoal: *Prevention of pressure injuryDe scription: Document Harsh Scale and appropriate interventions in [facility] t.12/08/2019 1440 by Ru Mosher: Resolved/MetNote: [...] pressure within specified parameters12/08/2019 144 0 by Mosher, KatyOutcome: Resolved/Met12/08/2019 1439 by Basilio Moshercome: Progressing T owkyler GoalGoal: *Fluid volume balance12/08/2019 1440 by Ashish Mosher me: Resolved/Met12/08/2019 1439 by Basilio Moshercome: Progressing Towards GoalGoa l: *Labs within defined limits12/08/2019 1440 by Basilio Moshercome: Resolved/Met 020 1439 by Ru Mosher: Progressing Towards GoalProblem: Patient Education: Go to Patient Education ActivityGoal: Patient/Family Education12/08/2019 1440 b y Basilio Moshercome: Resolved/Met12/08/2019 1439 by Ru Mosher: Progressing T owards GoalProblem: Fluid Volume - Risk of, ImbalancedGoal: *Balanced intake and out put12/08/2019 1440 by Basilio Moshercome: Resolved/Met12/08/2019 1439 by [...] Supporting Document(s ) ID Date Data Source [id number] 12/08/2019 02:40:17 PM EDT [facility] Problem: SuicideGoal: *STG: Remains safe in hospitalOutcome: [...] Document Harsh [facility]Outcome: P rogressing Towards GoalNote: Pressure Injury Interventions:Sensory [...] Supporting Document(s ) ID Date Data Source [id number] 12/08/2019 01:18:54 PM EDT [facility] General Daily Progress NoteAdmit Date: Hospital day: .tdSubjective:Psycgm Neuro,and PT assessments reviewed. Patie nt qualifies for discharge. Wifecalled, will bring in clothes. New medical regimen di scussed with the . Willneed [place] level later this week.Current Facility-Adminis tered MedicationsMedication [...] past 8 hrs: BP Temp Pulse Resp OhE67512/07 0816 - - - - 96 %12/08/19 [...] initial encounter (12/05/2019)Active Problems: Encephalopathy acute (12/05/2019) Eji-fbhb-ctifprh adve rse reaction to medication (12/05/2019)Plan: day of discharge. Name Value Range Interpretation Code Description Data Melani rce(s) Supporting Document(s ) ID Date Data Source [id number] 12/08/2019 12:09:30 PM EDT [facility] Problem: Mobility Impaired (Adult and Pe diatric)Goal: [...] y.o. male)Date: 12/08/2019Primary Diagnosis: E ncephalopathy acute [G93.40]Ydb-kihw-ofuqplz adverse reaction to medication [T88.7XXA ]Kfa-glgj-okgiwwd adverse reaction to medication [T88.7XXA]Precautions: Fall ASSESSMENT [...] ty or mortality cardiac cath at [facility] approx 6-8 months ago Other unknown [...] NoneCritical Beh avior:Neurologic State: AlertOrientation Level: Oriented L7Cpimtadde: Appropriate for age attention/concentration;Follows commandsSafety/Judgement: Decreased awar [...] no apparent distress in bed[x] Call zuhair prado t within reach[x] Nursing notified[] Caregiver present[] [...] Supporting Document(s ) ID Date Data Source [id number] 12/08/2019 11:48:26 AM EDT [facility] Name Value Range Interpretation Description Data Sup porting Code Source(s) Document(s ) Glucose 132 MG/DL 65-110 Above high normal [facility] [Mass/volume] [facility] in Blood by [facility] Automated test strip ID Date Data Source [id number] 12/08/2019 10:35:45 AM EDT [facility] S/O Patient has shown improvement. He re ports that medications are helping him.He denies any side effectsHe denies any cecilia cidal thoughtsHe reports that he sees a psychiatrist [facility] 300 mg bid [place] level in two days Will increase Zyprexa 5 mg Will follow up as requested Name Value Range Interpretation Code Description Data Melani rce(s) Supporting Document(s ) ID Date Data Source [id number] 12/08/2019 07:28:52 AM EDT [facility] Bedside and Verbal shift change report cristi Hurley RN (oncoming nurse) Annalise DE LEON RN (offgoing nurse). Repor t included the followinginformation SBAR, Kardex, MAR and Recent Results. Name Value Range Interpretation Code Description Data Melani rce(s) Supporting Document(s ) ID Date Data Source [id number] 12/07/2019 08:26:02 PM EDT [facility] Problem: Falls - Risk ofGoal: *Absence o [...] Value Range Interpretation Code Description Data [facility] rce(s) Supporting Document(s ) ID Date Data Source [id number] 12/07/2019 07:05:28 PM EDT [facility] Verbal shift change report given to Chandrakant Cox RN (oncoming nurse) by Steven Villalobos RN (offgoing nurse). Report inc luded the following information SBAR, Kardex,Intake/Output, MAR, Recent Result s and Cardiac Rhythm on telemetry. Name Value Range Interpretation Code Description Data Melani rce(s) Supporting Document(s ) ID Date Data Source [id number] 12/07/2019 01:30:56 PM EDT [facility] Trent Jacob MD[address], [address] [place] [address] [id number].ufindads Progress NotePatient: Maxwell Bray Sex: male DOA: [...] (LOVENOX) injection 40 mg 40 mg SubCUTAneous B27ORyfwhydey:Visit VitalsBP 153/85 (BP 1 Location: Left arm, BP Prachi ent Position: At rest)Pulse 96Temp 98.7 F (37.1 C)Resp 20Ht 5' 5.75" (1.67 m)Wt 3 01 lb 1.6 oz (136.6 kg)SpO2 96%BMI 48.97 kg/m Body mass index is 48.97 kg/m .Patient V itals for the past 24 hrs: Temp Pulse Resp BP [id number] 1249 - 96 - 153/85 - 0 [...] the time notated as "note time" in [facility]. (It is not time stamped separately in [...] shoulder M79.2 Seizure disorder (HCC) G40.909 Spells [id number] Severe obesity (HCC) E66.01 Depression F32.9 Anxiety F41.9 Bipolar disorder (HCC) F31.9 Depressive disorder F32.9 Status post g astric bypass for obesity Z98.84 Morbid obesity (HCC) E66.01 Mixed anxiety and depressive disorder F41.8 Vitamin D deficiency E55.9 Bipolar disorder with severe depression (HCC) F31.4 Encephalopathy acute G93.40 Adverse drug reaction, ini tial encounter T50.905A Eqc-vnla-ynucavj adverse reaction to medication T88.7XXA 49 year [...] Supporting Document(s ) ID Date Data Source [id number] 12/07/2019 01:02:36 PM EDT [facility] - [facility] Pt seen and discussed with Dr Canas .Pt is tearful flat and denies any suicidal thoughts , has been depressed withlithiu m on hold , No Vraylar and he is unable to get his ECT at [facility] And no w will be with [facility] with Dr Womack his lithium level is un therape utic range I will start on lithium , add 2.5mg of zyprexa and lower his klonopin And increase his elavil to 200 mg HSWill get pt followed up with Psychiatry Name Value Range Interpretation Code Description Data Melani rce(s) Supporting Document(s ) ID Date Data Source [id number] 12/07/2019 12:52:32 PM EDT [facility] Problem: Fluid Volume - Risk of, Imbalan cedGoal: *Balanced intake and outputOutcome: Progressing Towards GoalProblem: Patient Education: Go to Patient Education ActivityGoal: Patient/Family EducationOu tcome: Progressing Towards Goal Name Value Range Interpretation Code Description Data Melani rce(s) Supporting Document(s ) ID Date Data Source [id number] 12/07/2019 12:45:20 PM EDT [facility] Problem: Falls - Risk ofGoal: *Absence o [...] Supporting Document(s ) ID Date Data Source [id number] 12/07/2019 12:24:47 PM EDT [facility] General Daily Progress NoteAdmit Date: Hospital day: [...] injection 40 mg 40 mg SubCUTA neous P46JNecbhipee:Patient Vitals for the past 8 hrs: BP Temp Pulse Resp WuZ05312/06 0956 147/86 98.7 F (37.1 C) 95 [...] initial encounter (12/05/2019)Active Problems: Encephalopathy acute (12/05/2019) Rbr-dzti-jdjvopw adve rse reaction to medication (12/05/2019)Plan:To increase activity, diet,klonopin. Start Losartan Name Value Range Interpretation Code Description Data Melani rce(s) Supporting Document(s ) ID Date Data Source [id number] 12/07/2019 10:13:28 AM EDT [facility] LTM EEG engineering group leader DC'd per Dr. Jacob. Name Value Range Interpretation Code Description Data Melani rce(s) Supporting Document(s ) ID Date Data Source [id number] 12/07/2019 10:08:27 AM EDT [place] [address] L tad Crespo BUTCH [id number]: MAXWELL BRAYMRN: [id number]: [id number]#: [id number] DATE: 12/05/2019LONG TERM MONITORING VIDEO SYSTEM MANAGER: Riky Rodriguez HISTORY: The patient is a [...] montages. Digital analysis was performed employing an Eachpal neuralnetwork program with parameterization and statistical analysi [...] seen, that attenuates with eye opening.There was cnor-zw-gzypjqct gener alized background slowing.There was no clear focal slowing.ACTIVATION TECHNIQUES: Ph otic stimulation and hyperventilation were notperformed.SLEEP: During drowsiness, there is mild attenuation and slowing of thebackground rhythm. There was normal sleep seen including symmetric vertexwaves, sleep spindles, and K-complexes.OTHER AC TIVITY: There were no clear epileptiform discharges and no seizures orclinical ev ents recorded.DIGITAL ANALYSIS: Variable spectral pattern without significant lef q-zu-fbvjxrzmyklizlxu. Spikes were artifact in nature.DECEMBER 06 DAILY [...] the awake and asleep states due to bviv-lf-kzihpzqt diffuse cerebraldysfunc tion that improves to mild over the course of the recording. TRENT JACOB, MDDD: #12/06/2019 10:21:35/SS /[id number]/[id number] #: [id number] / [id number] Name Value Range Interpretation Code Description Data Melani rce(s) Supporting Document(s ) ID Date Data Source [id number] 12/07/2019 07:45:20 AM EDT [facility] Bedside and Verbal shift change report cristi Dove RN (3Loria) (oncomingnurse) by Vy Green RN (offgoing nurse). Report included the following information SBCIERRA, Nano Benites Recent Results. Name Value Range Interpretation Code Description Data Melani rce(s) Supporting Document(s ) ID Date Data Source [id number] 12/07/2019 07:22:41 AM EDT [facility] All leads and head wrapping intact. Day 2 LTM complete. Awaiting instructions tocontinue for day 3 or DC. Name Value Range Interpretation Code Description Data Melani rce(s) Supporting Document(s ) ID Date Data Source [id number] 12/07/2019 05:19:11 AM EDT [facility] Name Value Range Interpretation Description Data Sup porting Code Source(s) Document(s ) Sodium 138 136-145 [facility] [Moles/volume] mmol/L [facility] in Serum or Hospital Plasma Potassium 3.5 3.5-5.1 [facility] [Moles/volume] mmol/L [facility] in Serum or Hospital Plasma Chloride 106 98-107 [facility] [Moles/volume] mmol/L [facility] in Serum or Hospital Plasma Carbon 27 21-32 [facility] dioxide, total mmol/L [facility] [Moles/volume] Hospital in Serum or Plasma Anion gap in 10 10-20 [facility] Serum or mmol/L [facility] Plasma Hospital Glucose 140 74-106 Above high normal [facility] [Mass/volume] mg/dL [facility] in Serum or Hospital Plasma Urea nitrogen 19 mg/dL 7-18 Above high normal [facility] [Mass/volume] [facility] in Serum or Hospital Plasma Creatinine 0.94 0.70-1.3 [facility] [Mass/volume] mg/dL 0 [facility] in Serum or Hospital Plasma Glomerular >60 [facility] filtration [facility] rate/1.73 sq M Hospital predicted among blacks [Volume Rate/Area] in Serum or Plasma by Creatinine-bas ed formula (MDRD) Glomerular >60 [facility] rate/1.73 sq M Hospital predicted among non-blacks [Volume Rate/Area] in Serum or Plasma by Creatinine-bas ed formula (MDRD) (NOTE)Estimated GFR is calculated using the Modification of Diet in RenalDisease (MDRD) Study equation, reported for both Americans(GFRAA) and non- Americans (GFRNA), and normalized to 1.7 2v9dzje surface area. The physician must decide which value applies tothe patient . The MDRD study equation should only be used inindividuals age 18 or older. It has no t been validated for thefollowing: women, patients with serious comorbid co nditions,or on certain medications, or persons with extremes of body size,muscl e mass, or nutritional status. Calcium [Mass/volume] in Serum 9.1 mg/dL 8.5-10.1 [facility] or Plasma Hospital ID Date Data Source [id number] 12/06/2019 08:12:24 PM EDT [facility] Bedside and Verbal shift change report cristi Loyd RN (oncoming nurse) Estephania Wakfeield RN (offgoing nurse). Report included the followinginformation SBAR, Kardex, MAR, Recent Results, and Med Rec Status. Name Value Range Interpretation Code Description Data Melani rce(s) Supporting Document(s ) ID Date Data Source [id number] 12/06/2019 04:57:12 PM EDT [facility] General Daily Progress NoteAdmit Date: Hospital day: [...] (LOVENOX) injection 40 mg 40 mg SubCUTAneous U98OYttwgjrxu:Patient Vi tals for the past 8 hrs: BP Temp Pulse Resp GmZ24312/06/19 1547 (!) 164/100 99.6 F (3 7.6 [...] Time: 12/06/19 4:25 AMResult Value Ref Range [place] level 1.09 0.6 - 1.2 MMOL/L Xr [...] initial encounter (12/05/2019)Active Problems: Encephalopathy acute (12/05/2019) Pfo-auda-frbofkl adve rse reaction to medication (12/05/2019)Plan:To reduce iv fluids, repeat lasix Name Value Range Interpretation Code Description Data Melani rce(s) Supporting Document(s ) ID Date Data Source [id number] 12/06/2019 04:14:48 PM EDT [facility] Psychiatry Consult NoteSubjective:Patien t: Maxwell Bray [...] of morbidity or mortality cardiac cath at [facility] approx 6-8 months ago Other unknown and unspecified cause of morbidity or mortal ity concussions Other unknown and unspecified cause of morbidity or mortal ity "periodic disorientation" Other unknown and unspecified cause of morbidity or mo rtality anxiety Psychiatric disorder anxiety, depressionPsychiatric History: Patient reported he was receiving care in outpatient from [facility] psychiatrist bu t did not discuss details.Substance Use History:Social HistorySubstance and Sexu al ActivityAlcohol Use No Frequency: Never Drinks per session: 1 or 2 Binge freque ncy: NeverSocial HistorySubstance and Sexual ActivityDrug Use NoObjective:Vitals/Phys ical Assessment:Patient Vitals for the past 8 hrs: BP Temp Pulse Resp KwP31412/06/19 081 3 (!) 153/94 100.4 F (38 [...] encounter (12/05/2019)A ctive Problems: Encephalopathy acute (12/05/2019) Nsb-qsov-fyckshy adverse re action to medication (12/05/2019)Plan:No current [...] Supporting Document(s ) ID Date Data Source [id number] 12/06/2019 01:18:16 PM EDT [facility] Trent Jacob MD[address], [address] [place] [address] [id number] Progress NotePatient: Maxwell Bray Sex: male DOA: 12/05/2019Date of : 1970 Age: 49 y.o. LOS: LOS: 1 daySubjective:Awake, alert, tremulous, no current complaintsEEG w/ mild to mod gen slowREVIEW OF SYSTEMS: NO CP, SOB, N,V,D, F,CCurrent Facility-Administered MedicationsMedication Dose Route Frequen cy 0.9% sodium chloride infusion 125 mL/hr IntraVENous CONTINUOUS enoxaparin (LOVE NOX) injection 40 mg 40 mg SubCUTAneous P15ATojzyaslt:Visit VitalsBP (!) 153/94 (BP 1 Location: Left arm, BP Patient Position: At rest)Pulse 100Temp 100.4 F (38 C)Resp 18Ht 5' 5.75" (1.67 m)Wt 300 lb (136.1 kg)SpO2 96%BMI 48.79 kg/m Body mass index is 48.79 kg/m .Patient Vitals for the past 24 hrs: Temp Pulse Resp BP BeY02612/06/19 0813 100.4 F (38 C) 100 18 [...] past 24 hours were reviewed both [facility] daily [facility] and at the time notated as "note time" in [facility]. (It is not time stamped separately [...] Time: 12/06/19 4:25 AMResult Value Ref Range [place] level 1.09 0.6 - 1.2 MMOL/LCT Results (most recent):Results from [facility] encounter on 12/05/19CT HEAD WO CONT [...] the brain.MRI Results (most recent):Results from [facility] encounter on 12/05/19MRI BRAIN WO CONT [...] [facility]) G40.909 Spells [id number] Severe ob esity ([facility] [...] G93.40 Adverse drug reaction, initial encounter T50.905A Ons-refh-ufuzaqk adverse react ion to medication T88.7XXA49 year [...] Name Value Range Interpretation Code Description Data [facility] Supporting Document(s ) ID Date Data Source [id number] 12/06/2019 11:43:34 AM EDT [facility] LTM study day 1 complete. All leads and head wrapping intact. Day 2 LTM studycommenced and LIVE via WIFI on [facility]. 06/28 Name Value Range Interpretation Code Description Data [facility](s) Supporting Document(s ) ID Date Data Source [id number] 12/06/2019 10:48:32 AM EDT [facility] Care Management InterventionsPCP Verifie d by CM: YesCurrent Support Network: Own Home, Lives with SpouseThe Patient and/o r Patient Statistical Reporting Analyst was Provided with a Choice of Providerand Agrees with the Betty rose Plan?: YesFreedom of Choice List was Provided with Basic Dialogue that Suppor ts thePatient's Individualized Plan of Care/Goals, Treatment Preferences and Sh aresthe Quality Data Associated with the Providers?: YesVeteran Resource Informat ion Provided?: RefusedDischarge LocationDischarge Placement: HomeCASE YUE LORENZ PSYCHOSOCIAL ASSESSMENTMaxwell Mendieta [place] Admission Marlon e: 12/05/2019MRN: [id number] of : 1970Current date: 12/06/2019 DISCHARGE PLAN: Patient is a 49 year old male admitted to [facility]. CM attempted toreach hi m via [...] services. Open for SNF. Family would like [facility]. CM CCLINKD. CM willfollow.Patient Information:Patients Preferred [...] MDAdmitting Provider: Ritika lobo MDCHILDR[facility] HAT MENDER: N/APayor: P ayor: [facility] HEALTH PLAN / Plan: [facility] HEALTH PLAN /Product Type: HMO /Secondary Payor : @SECINSGROUPNAME@Encephalopathy acute [G93.40]Iza-ckih-aabohqw adverse reactio n to medication [T88.7XXA]Lgh-baql-azfxego adverse reaction to medication [T88.7XXA ]Patient Active Problem ListDiagnosis Code H/O gastric bypass Z98.84 Insomnia G47. 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 Seizure disorder (HCC) G40.909 Spells I [id number] Severe obesity (HCC) E66.01 Depression F32.9 Anxiety F41.9 Bipolar disorder (HCC) F31.9 Depressive disorder F32.9 Status post gastric bypass for ob esity Z98.84 Morbid obesity (HCC) E66.01 Mixed anxiety and depressive disorder F4 1.8 Vitamin D deficiency E55.9 Bipolar disorder with severe depression (HCC) F3 1.4 Encephalopathy acute G93.40 Adverse drug reaction, initial encounter T50.905 A Abr-mbbg-dqdrmxd adverse reaction to medication T88.7XXASocial HistorySubstan ce [...] Supporting Document(s ) ID Date Data Source [id number] 12/06/2019 07:40:06 AM EDT [facility] 1938: Patient found in bed resting quiet [...] Supporting Document(s ) ID Date Data Source [id number] 12/06/2019 05:07:27 AM EDT [facility] Name Value Range Interpretation Description Data Sup porting Code Source(s) Document(s ) [place] 1.09 0.6-1.2 [facility] - Good [Moles/volu MMOL/L [facility]] in Hospital Serum or Plasma ID Date Data Source [id number] 12/05/2019 07:59:09 PM EDT [facility] Name Value Range Interpretation Description Data Sup porting Code Source(s) Document(s ) Ammonia 16 UMOL/L 11-32 [facility] - Good [Moles/volum [place] e] in Plasma Hospital ID Date Data Source [id number] 12/05/2019 07:56:38 PM EDT [facility] Name Value Range Interpretation Description Data Sup porting Code Source(s) Document(s ) Lactate 0.9 0.4-2.0 [facility] - Good [Moles/volu MMOL/L [place]] in Hospital Serum or Plasma ID Date Data Source [id number] 12/05/2019 06:42:57 PM EDT [facility] 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 Day 1 LTM comm enced and LIVE via WIFI on [facility] 06/28 Name Value Range Interpretation Code Description Data Melani rce(s) Supporting Document(s ) ID Date Data Source [id number] 12/05/2019 06:07:34 PM EDT [facility] [id number] [employer] [facility] 4T OR THOPEDICS [address] [facility] [address] [phone] Mxawell Bray (Male) [id number] I 3 ED Dispo:ADMIT Chief Complaint: Fall, Fatigue Diagnosis: Altered mental status, unspecified altered mental status type [] Adverse drug reaction, initial encounter [] Encephalopathy acute [] Yzt-ohmi-fujembm adverse effect of medication, subsequent encounter [] Bipolar disorder with severe depression (HCC) [] H/O gastric bypass [] Curre nt Providers: Attending: Patsy Manzo; Kristy Otero; Cristi Canas Consulting Provider: Jose Centeno; Cristi Canas; Javier Khan; Cristi Frazier Primary Nurse: BAILEY GambleN: [phone] 5 [id number] [employer] [phone] - [employer] MrnMRN: [id number] [employer] [phone] - [employer] Age SexDOB 1970 AGE 49 SEX Male Primary Care Provider: Ritika Canas MD Phone: Allergies: (No Known Allergies)Date Reviewed: 12/05/2019Reviewed by: Ritika Canas MD - Review CompleteED Provider Notes: All notesHNO ID: [id number]: Julio Manzo MDService: EMERGENCYAuthor Type: Physici anFiled: [...] morbidity or mortality cardiac cath at [facility] approx 6-8 months ag o Other [...] Calculation (Bez et) 515 ms Calculated P [place] 40 degrees Calculated R [place] 41 degrees Calculated T [place] 147 degrees Diagnosis Sinus tachycardiaProbable left atrial [...] Time: 12/05/19 12:38 PMResult Value Ref Range [place] level 1 .53 (HH) 0.6 - 1.2 MMOL/LLACTIC ACID Collection Time: 12/05/19 12:40 PMResult Value Ref Range Lactic acid 1.1 0.4 - 2.0 MMOL/LEKG:Sinus tachycardia at 100 BPM, normal axis, nothing acute.Interpreted by Julio Manzo MD11:20 AM cardiac catheterization technologist reading shows sinus tachycardia at 100 [...] mental status, unspecified altered mental status type R41.57219.97Patient c ondition at time of disposition: StableI have reviewed the following home medications:Prior to Admission medi cationsMedication Sig Start Date End Date Taking? Authorizing ProviderrisperiDONE (RisperDAL) 2 mg tab let Take 1 Tab by mouth daily. 12/04/19SabinoxRitika, MDamitriptyline (ELAVIL) 100 mg tablet 200 mg. [...] es dailyas needed. Other, Phys, MDMaoJulio MD IKishore, am serving [...] thediagnostic studies, unless otherwise noted.+ED Orde rs [id number] 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 [#[id number]] Priority: STAT Class: Hospital Performe d Standing Order Information Remaining Occurrences:0/1 Interval:Continuous Last release d:12/05/2019 Released orders: SunDec 05, 2019 11:20 AM by: JULIO MANZO Type: -> Bedside N [id number] PULSE OXIMETRY CONTINUOUS [#[id number]] Priority: STAT Class: Hospital Performe d Standing Order Information Remaining Occurrences:0/1 Interval:CONTINUOUS Last release d:12/05/2019 Released orders: SunDec 05, 2019 11:20 AM by: JULIO MANZO [id number] PULSE OXIMETRY SPOT CHECK [#[id number]] Priority: STAT Class: Hospital Performed Standing Order Inf ormation Remaining Occurrences:0/1 Interval:ONE TIME Last released:12/05/2019 Release d orders: SunDec 05, 2019 11:20 AM by: JULIO MANZO [id number] OBTAIN OLD EKG [ #[id number]] Priority: Routine Class: Hospital Performed Standing Order Information Remainin g Occurrences:0/1 Interval:ONE TIME Last released:12/05/2019 Released orders : SunDec 05, 2019 11:20 AM by: JULIO MANZO [id number] 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 [# [id number]] Priority: STAT Class: Hospital Performed Type: -> Bedside Released on: 12/05/2019 11:20 AM [id number] PULSE OXIMETRY CONTINUOUS [#[id number]] Priority: STAT Class: Hospital Performe d Released on: 12/05/2019 11:20 AM [id number] PULSE OXIMETRY SPOT CHECK [#[id number]] Priori ty: STAT Class: Hospital Performed Released on: 12/05/2019 11:20 AM [id number] OBTAIN OLD EKG [#[id number]] Priority: STAT Class: Hospital Performed Released on: 12/05/2019 11:20 AM [id number] VITAL SIGNS PER UNIT ROUTINE [#[id number]] Priority: STAT Class: Hospital Performed Stand ing Order Information Remaining Occurrences:0/1 Interval:CONTINUOUS Last released :12/05/2019 Released orders: SunDec 05, 2019 2:41 PM by: RITIKA CANAS Comment:More frequent ly if Indicated. [id number] BEDREST, COMPLETE [#[id number]] Priority: STAT Class: H ospital Performed Standing Order Information Remaining Occurrences:0/1 Interval:CONTIN UOUS Last released:12/05/2019 Released orders: SunDec 05, 2019 2:41 PM by: RITIKA CANAS [id number] NOTIFY PROVIDER: VITAL SIGNS CHANGES [#[id number]] Priority: STAT Class: Hospital Performe d Standing [...] Less than 120 ml in 4 hours [id number] APPLY/MAINTAIN SEQUENTIAL COMPRESSIO* [# [id number]] Priority: STAT Class: Hospital Performed Standing Order Information Remaining Occurre nces:0/1 Interval:CONTINUOUS Last released:12/05/2019 Released orders: SunDec 05, 2019 2:41 PM by: RITIKA CANAS [id number] VITAL SIGNS PER UNIT ROUTINE [#[id number]] Priorit y: STAT Class: Hospital Performed Comment:More frequently if Indicated. Released on: 12/05/2019 2 :41 PM [id number] BEDREST, COMPLETE [#[id number]] Priority: STAT Class: Hospital Performe d Released on: 12/05/2019 2:41 PM [id number] NOTIFY PROVIDER: VITAL SIGNS CHANGES [#[id number]] Priority: STAT Class: Hospital Performed Temp -> [...] carmen rs Released on: 12/05/2019 2:41 PM [id number] APPLY/MAINTAIN SEQUENTIAL COMPRESSIO* [#[id number]] P riority: STAT Class: Hospital Performed Released on: 12/05/2019 2:41 PM [id number] RT--OXYGEN CANNULA [#[id number]] Priority: STAT Class: Hospital Performed Standing Order Information Remaining Occurrences:0/1 Interval:CONTINUOUS Last released:12/05/2019 Released o rders: SunDec 05, 2019 11:20 AM by: JULIO MANZO LPM -> 2 Indications for O2? -> CHEST PAIN [id number] RT--OXYGEN CANNULA [#[id number]] Priority: STAT Class: Hospital Performe d LPM -> 2 Indications for O2? -> CHEST PAIN Released on: 12/05/2019 11:20 AM [id number] DIET NPO [#[id number]] Canceled Priority: STAT Class: Hospital Performed Cancele d by RITIKA CANAS on SunDec 05, 2019 2:41 PM Reason: None Comment: Standing Order Information Remaining Occurrences:0/1 Interval:DIET EFFECTIVE NOW Last released:12/05/2019 Release d orders: SunDec 05, 2019 11:20 AM by: JULIO MANZO NPO options: -> With Meds [id number] DIET NPO [#[id number]] Canceled Priority: STAT Class: Hospital Performed Cancele d by RITIKA CANAS on SunDec 05, 2019 2:41 PM Reason: None Comment: NPO options: -> With Meds Released on: 12/05/2019 11:20 AM [id number] DIET NPO [#[id number]] Priority: S TAT Class: Hospital Performed Standing Order Information Remaining Occurrences:0/1 Inter haile:DIET EFFECTIVE NOW Last released:12/05/2019 Released orders: SunDec 05, 2019 2:41 PM by: RITIKA CANAS [id number] DIET NPO [#[id number]] Priority: STAT Class: H ospital Performed Released on: 12/05/2019 2:41 PM [id number] SALINE LOCK IV [#[id number]] Priority: STAT Class: Hospital Performed Standing Order Information Remaining Occurrences:0 /1 Interval:ONE TIME Last released:12/05/2019 Released orders: SunDec 05, 2019 11:20 AM by: JULIO MANZO IVT11 SALINE LOCK IV [#[id number]] Priority: STAT Cl ass: Hospital Performed Released on: 12/05/2019 11:20 AM [id number] METABOLIC PANEL, COMPREHENSIVE [# [id number]] Priority: STAT Class: ER Collect Standing Order Information Remaining Occurrences:0 /1 Interval:ONE TIME Last released:12/05/2019 Released orders: SunDec 05, 2019 11:20 AM by: JULIO MANZO [id number] CBC WITH AUTOMATED DIFF [#[id number]] Priority: STAT Cl ass: ER Collect Standing Order Information Remaining Occurrences:0/1 Interval:ONE TI ME Last released:12/05/2019 Released orders: SunDec 05, 2019 11:20 AM by: JULIO MANZO [id number] TROPONIN I [#[id number]] Priority: STAT Class: ER Collect Sta nding Order Information Remaining Occurrences:0/1 Interval:ONE TIME Last released:0 12/05/2019 Released orders: SunDec 05, 2019 11:20 AM by: JULIO MANZO [id number] MAGNESIUM [#[id number]] Priority: STAT Class: ER Collect Standing Order Information Remaining Occurrences:0/1 Interval:ONE TIME Last released:12/05/2019 Released orders : SunDec 05, 2019 11:20 AM by: JULIO MANZO [id number] LACTIC ACID [#[id number]] Priority: STAT Class: ER Collect Standing Order Information Remaining Occurrences:0/2 Interval:NOW THEN EVERY 4 HOURS Last released:12/05/2019 Released orders: SunDec 05, 2019 12:06 PM by: JULIO MANZO SunDec 05, 2019 11:20 AM by: JULIO MANZO [id number] PROTHROMBIN TIME + INR [#[id number]] Priority: STAT Class: ER Collect Standing Order Information Remain ing Occurrences:0/1 Interval:ONE TIME Last released:12/05/2019 Released orders : SunDec 05, 2019 11:20 AM by: JULIO MANZO [id number] URINALYSIS W/ RFLX MICROSCOPIC [# [id number]] Priority: STAT Class: ER Collect Standing Order Information Remaining Occurrences:0 /1 Interval:ONE TIME Last released:12/05/2019 Released orders: SunDec 05, 2019 11:20 AM by: JULIO MANZO [id number] METABOLIC PANEL, COMPREHENSIVE [#[id number]] Priority: STAT Cl ass: ER Collect Specimen Source: Plasma Specimen Collected: 12/05/2019 12:38 PM Resulting Agency: [facility] Test ID: MPL Released on: 12/05/2019 11:20 AM [id number] CBC WITH A UTOMATED DIFF [#[id number]] Priority: STAT Class: ER Collect Specimen Source: Whole Blood S pecimen Collected: 12/05/2019 12:38 PM Resulting Agency: [facility] Test ID: [id number] Released on: 12/05/2019 11:20 AM [id number] TROPONIN I [#[id number]] Prior ity: STAT Class: ER Collect Specimen Source: Plasma Specimen Collected: 12/05/2019 12:38 PM Resultin g Agency: [facility] Test ID: TROIP Released on: 12/05/2019 11:20 AM [id number] MAGNESIUM [#[id number]] Priority: STAT Class: ER Collect Specimen Source : Plasma Specimen Collected: 12/05/2019 12:38 PM Resulting Agency: [facility] Test ID: MGPL Released on: 12/05/2019 11:20 AM [id number] LACTIC ACID [#[id number]] P riority: STAT Class: ER Collect Specimen Source: Plasma Specimen Collected: 12/05/2019 12:40 PM Resultin g Agency: [facility] Test ID: LAC Released on: 12/05/2019 11:20 AM [id number] PROTHR OMBIN TIME + INR [#[id number]] Priority: STAT Class: ER Collect Specimen Source: Plasma Spe cimen Collected: 12/05/2019 12:38 PM Resulting Agency: [facility] Test ID: APTHR R eleased on: 12/05/2019 11:20 AM [id number] URINALYSIS W/ RFLX MICROSCOPIC [#[id number]] Prior ity: STAT Class: ER Collect Specimen Source: Urine Specimen Collected: 12/05/2019 2:45 PM Resultin g Agency: [facility] Test ID: UA Released on: 12/05/2019 11:20 AM [id number] JAYLAN M [#[id number]] Priority: STAT Class: ER Collect Standing Order Information Remaining Occurrences:0/1 Interval:ONE TIME Last released:12/05/2019 Released orders : SunDec 05, 2019 11:40 AM by: MECHELLE GAMBLE [id number] LITHIUM [# [id number]] Priority: STAT Class: ER Collect Specimen Source: Serum Specimen Collected: 12/05/2019 12 :38 PM Resulting Agency: [facility] Test ID: LI Released on: 12/05/2019 11:40 AM [id number] LITHIUM [#[id number]] Canceled Priority: STAT Class: ER Collect Canceled by TENA, LAB IN [facility] on SunDec 05, 2019 11:42 AM Reason: Other Comment: Duplicate Standing Order Information Remaining Occurrences:0/1 Interval:ONE TIME Last released:0 12/05/2019 Released orders: SunDec 05, 2019 11:41 AM by: JULIO MANZO [id number] LITHIUM [#[id number]] Canceled Priority: STAT Class: ER Collect Specimen Collected: 12/05/2019 11:45 AM Resulting Agency: [facility] Test ID: LI Canceled by TENA, [facility] on SunDec 05, 2019 11:42 AM Reason: Other Comment: Duplicate Rele ased on: 12/05/2019 11:41 AM [id number] LACTIC ACID [#[id number]] Priority: STAT Cl ass: ER Collect Resulting Agency: [facility] Test ID: LAC Released on: 12/05/2019 12:06 PM [id number] AMMONIA [#[id number]] Priority: Routine Class: ER Collect Specimen Source: Blood Standing Order Information Remaining Occurrences:0/1 Interval:ONE TI ME Last released:12/05/2019 Released orders: SunDec 05, 2019 3:19 PM by: Javier KHAN [id number] AMMONIA [#[id number]] Priority: STAT Class: ER Collect Spe cimen Source: Blood Resulting Agency: [facility] Test ID: NH3 Released on: 12/05/2019 3:19 PM [id number] BILIRUBIN, CONFIRM [#[id number]] Priority: Routine Class : ER Collect Resulting Agency: [facility] Test ID: ICTO Standing Order Informat ion Remaining Occurrences:0/1 Released orders: SunDec 05, 2019 2:45 PM by: Automatic B atch Process [id number] BILIRUBIN, CONFIRM [#[id number]] Priority: Routine Class : ER Collect Specimen Source: Miscellaneous sample Specimen Collected: 12/05/2019 2:45 PM Resultin g Agency: [facility] Test ID: ICTO Released on: 12/05/2019 2:45 PM [id number] EKG, 12 LEAD, INITIAL [#[id number]] Priority: STAT Class: Hospital Performed Stand ing Order Information Remaining Occurrences:0/1 Interval:ONE TIME Last released:0 12/05/2019 Released orders: SunDec 05, 2019 11:20 AM by: JULIO MANZO Reason for Exam: -> Chest Pain [id number] EKG, 12 LEAD, INITIAL [#[id number]] Priority: STAT Class: H ospital Performed Resulting Agency: [facility] Test ID: [id number] Reason for Exam: -> Chest Pain Releas ed on: 12/05/2019 11:20 AM [id number] XR CHEST PORT [#[id number]] Priority: STAT Clas s: Hospital Performed Standing Order Information Remaining Occurrences:0/1 Interval:ONE TI ME Last released:12/05/2019 Released orders: SunDec 05, 2019 11:20 AM by: JULIO MANZO Reason for Exam -> Chest Pain [id number] CT HEAD WO CONT [#[id number]] Priority: S TAT Class: Hospital Performed Standing Order Information Remaining Occurrences:0/1 Inter haile:ONE TIME Last released:12/05/2019 Released orders: SunDec 05, 2019 11:20 AM by: JULIO MANZO Reason for Exam -> ams [id number] XR PELV AP ONLY [#[id number]] Priority: S TAT Class: Hospital Performed Standing Order Information Remaining Occurrences:0/1 Inter haile:ONE TIME Last released:12/05/2019 Released orders: SunDec 05, 2019 11:20 AM by: JULIO MANZO Reason for Exam -> fall [id number] XR CHEST PORT [#[id number]] Priority: STAT Class: Hospital Performed Specimen Collected: 12/05/2019 12:21 PM Resulting Agency: [facility] Test ID: [id number] Reason for Exam -> Chest Pain Released on: 12/05/2019 11:[id number] HEAD WO CONT [#[id number]] Priority: STAT Class: Hospital Performed Specimen Collected : 12/05/2019 12:43 PM Resulting Agency: [facility] Test ID: [id number] Reason for Exam -> ams R eleased on: 12/05/2019 11:20 AM [id number] XR PELV AP ONLY [#[id number]] Priority: STAT Class: Hospital Performed Specimen Collected: 12/05/2019 12:23 PM Resulting Agency: [facility] Test ID : [id number] Reason for Exam -> fall Released on: 12/05/2019 11:20 AM [id number] MRI BRAIN WO CONT [#[id number]] Priority: STAT Class: Hospital Performed Standing Order Information Remaining Occurrences:0/1 Interval:ONE TIME Last released:12/05/2019 Released orders : SunDec 05, 2019 3:19 PM by: JOSE KHAN Reason for Exam -> ams [id number] MRI BRA IN WO CONT [#[id number]] Priority: STAT Class: Hospital Performed Specimen Collected : 12/05/2019 5:03 PM Resulting Agency: [facility] Test ID: [id number] Reason for Exam -> ams R eleased on: 12/05/2019 3:19 PM [id number] CULTURE, BLOOD [#[id number]] Priority: Routi ne Class: ER Collect Specimen Source: Blood Standing Order Information Remaining Occurrences:0 /1 Interval:ONE TIME Last released:12/05/2019 Released orders: SunDec 05, 2019 11:20 AM by: JULIO MANZO [id number] CULTURE, BLOOD [#[id number]] Priority: STAT Cl ass: ER Collect Specimen Source: Blood Standing Order Information Remaining Occurrences:0/1 I nterval:ONE TIME Last released:12/05/2019 Released orders: SunDec 05, 2019 11:20 AM by: JULIO MANZO3 CULTURE, BLOOD [#[id number]] Priority: STAT Class: E R Collect Specimen Source: Blood Specimen Collected: 12/05/2019 12:38 PM Resulting Agency: [facility] Test ID: HBCS Released on: 12/05/2019 11:20 AM [id number] CULTURE, BLOOD [#[id number]] Priority: STAT Class: ER Collect Specimen Source: Blood Specimen Collected: 12/04 12:30 PM Resulting Agency: [facility] Test ID: HBCS Released on: 12/05/2019 11:20 AM CEFTRIAXONE 1 GRAM IVPB MBP [#[id number]] Priority: STAT Class: Normal An tibiotic Indications -> Sepsis of Unknown Etiology SODIUM CHLORIDE 0.9 % IV [#[id number]] Priority: STAT Class: Normal SODIUM CHLORIDE 0.9 % IV [#[id number]] Priority : STAT Class: Normal ENOXAPARIN 40 MG/0.4 ML SUB-Q SYRINGE [#[id number]] Priority: STAT Class: N ormal ENOXAPARIN 40 MG/0.4 ML SUB-Q SYRINGE [#[id number]] Priority: STAT Class: Normal FUROSEMIDE 10 MG/ML IJ SOLN [#[id number]] Priority: STAT Class: Normal CON53 IP CONSULT TO PS YCHIATRY [#[id number]] Priority: STAT Class: Hospital Performed Standing Order Information Remaining Occurrences:0/1 Interval:ONE TIME Last released:12/05/2019 Released orders : SunDec 05, 2019 11:42 AM by: JULIO MANZO Reason for Consult: -> si Did you call or spea k to the consulting provider? -> No Consult To -> si CON53 IP CONSULT TO PSYCHIATRY [#[id number]] Priority: STAT Class: Hospital Performed Reason for Consult: -> si Did you call or spea k to the consulting provider? -> No Consult To -> si Released on: 12/05/2019 11:42 AM CON62 IP CON SULT TO INTERNAL MEDICINE [#[id number]] Priority: STAT Class: Hospital Performed Standing Order Inf ormation Remaining Occurrences:0/1 Interval:ONE TIME Last released:12/05/2019 Release d orders: SunDec 05, 2019 2:16 PM by: CARLA OTERO Reason for Consult: -> Altered mental st atus, Dr. Canas to admit Did you call or speak to the consulting provider? -> Yes CON62 IP CONSULT TO INTERNAL MEDICINE [#[id number]] Priority: STAT Class: Hospital Performed Reason for Consu lt: -> Altered mental status, Dr. Canas to admit Did you call or speak to the consulting provider? -> Yes Released on: 12/05/2019 2:16 PM CON53 IP CONSULT TO PSYCHIATRY [#[id number]] Priority: STAT Class: Hospital Performed Standing Order Information Remaining Occurrences:0 /1 Interval:ONE TIME Last released:12/05/2019 Released orders: SunDec 05, 2019 2:41 PM by: RITIKA CANAS Reason for Consult: -> adverse med reaction Did you call or speak to t he consulting provider? -> No Consult To -> Dr Aguirre Schedule When? -> TODAY CON9 IP CONSULT TO N EUROLOGY [#[id number]] Priority: STAT Class: Hospital Performed Standing Order Information Remaining Occurrences:0/1 Interval:ONE TIME Last released:12/05/2019 Released orders : SunDec 05, 2019 2:41 PM by: RITIKA CANAS Reason for Consult: -> encephalopathy adverse drug reaction Did you call or speak to the consulting provider? -> No Consult To -> Dr Jacob Schedule When? -> TODAY CON53 IP CONSULT TO PSYCHIATRY [#[id number]] Priority: STAT Class: H ospital Performed Reason for Consult: -> adverse med reaction Did you call or speak to the consulting provider? -> No Consult To -> Dr Aguirre Schedule When? -> TODAY Released on: 12/05/2019 2:41 P M CON9 IP CONSULT TO NEUROLOGY [#[id number]] Priority: STAT Class: Hospital Performe d Reason for Consult: -> encephalopathy adverse drug reaction Did you call or speak to the consulting provider? -> No Consult To -> Dr Jcaob Schedule When? -> TODAY Released on: 12/05/2019 2:41 P M [id number] INITIAL PHYSICIAN ORDER: OBSERVATION* [#[id number]] Priority: Routine Class: ADT Pend Trans milvia Standing Order Information Remaining Occurrences:0/1 Interval:ONE TIME Last release d:12/05/2019 Released orders: SunDec 05, 2019 2:00 PM by: LUZ ELENA GATES Patient Class: -> OBS ERVATION Admitting Diagnosis -> Encephalopathy acute Admitting Physician -> CARLA OTERO Attending Physician -> CARLA OTERO [id number] INITIAL PHYSICIAN ORDER: OBSERVATION* [#[id number]] Priority: Routine Class: ADT Pend Transfer Patient Class: -> OBSERVATION Admitting Diagnosis -> Encephalopathy acute Admitting Physician -> CARLA OTERO Attending Physician -> CARLA OTERO Released on: 12/05/2019 2:00 PM [id number] INITIAL PHYSICIAN ORDER: INPATIENT [#[id number]] Pristeph brayy: Routine Class: ADT Pend Transfer Standing [...] o- n- ) Admitting Diagnosis - > Onr-vkyo-umkaxeu adverse reaction to medication Admitting Physician -> RITIKA CANAS Physician -> RITIKA CANAS Estimated Length of Stay -> 5-7 Midnights Discharge Plan: -> Other (Specify) [id number] INITIAL PHYSICIAN ORDER: INPATIENT [#[id number]] Priority: Routine Class: ADT Pend Tr ansfer [...] i- o- n- ) Admitting Diagnosis -> Und-bnep-qmbzjxc adverse reaction to medication Admitting Physician -> RITIKA CANAS Attending Physician -> MARY CANAS Estimated Length of Stay -> 5-7 Midnights Discharge Plan: -> Other (Specify) [id number] INITI AL PHYSICIAN ORDER: INPATIENT [#[id number]] Priority: Routine Class: ADT Pend Transfer Status: [...] i- o- n- ) Admitting Diagnosis -> Qiv-bwde-ypqhwsy adverse reaction to medication Admitting Physician -> RITIKA CANAS Attending Physician -> MARY CANAS Estimated Length of Stay -> 5-7 Midnights Discharge Plan: -> Other (Specify) Released on: 12/05/2019 2:41 PM [id number] INITIAL PHYSICIAN ORDER: INPATIENT [#[id number]] Priority: Routine Class : ADT Pend Transfer [...] o- n- ) Adm itting Diagnosis -> Xvi-ojvn-yhqvset adverse reaction to medication Admitting Physician -> RITIKA CANAS Attending Physician -> RITIKA CANAS Estimated Length of Stay -> 5-7 Midnights Discharge Plan: -> Other (Specify) Released on: 12/05/2019 2:41 PM COD2 FULL CODE [#[id number]] Priority: STAT Class: Hospital Performed Standing Order Information Remaining Occurrences:0 /1 Interval:CONTINUOUS Last released:12/05/2019 Released orders: SunDec 05, 2019 2:41 PM by: RITIKA CANAS COD2 FULL CODE [#[id number]] Priority: STAT Cl ass: Hospital Performed Released on: 12/05/2019 2:41 PM [id number] EEG 12-26 HR W/VIDEO [# [id number]] Priority: Routine Class: Hospital Performed Standing Order Information Remaining Occurre nces:0/1 Interval:ONE TIME Last released:12/05/2019 Released orders: SunDec 04 3:19 PM by: JOSE KHAN Reason for Exam: -> ams [id number] EEG 12-26 HR W/VIDEO [#[id number]] Priority: STAT Class: Hospital Performed Resulting Agency: [facility] Test ID: NEU1 093 Reason for Exam: -> ams Released on: 12/05/2019 3:19 Maxwell Corona MR#: [id number] * Rm: [id number] 01Ht: 5' 5" Wt: 300 lb Code: Full Code Iso:Diagnosis:Encep halopathy acute [G93.40]Allergies: No Known Allergies -------- Current as of: 12/05/191806 NB=New Bag --aspirin (ASPIRIN) tablet 325 mg #[id number] Admin Amount: 1 Tab (1 x 325 mg Tab) Ordered Dose: 325 mg Route: Oral Freq: ONCE Start Date: 12/24/13 No administration times (back 96 hours, ahead 96 hours). ------diphenhydrAMINE (BENADRYL) capsule 50 mg #[id number] Admin Amount: 1 Cap (1 x 50 mg Cap) Ordered Dose: 50 mg Route: Ora l Freq: NOW Start Date: 12/24/13 No administration times (back 96 hours, ahe ad 96 hours). ------diazepam (VALIUM) tablet 5 mg #[id number] Admin Amount: 1 Tab (1 x 5 mg Tab) Ordered Dose: 5 mg Route: Oral Freq: ON CE Start Date: 12/24/13 No administration times (back 96 hours, ahead 96 hours). ------lidocaine (XYLOCAINE) 10 mg/mL (1 %) injection 1-30 mL #[id number] Admin Amount: 1-30 mL Ordered Dose: 1-30 mL Route: IntraDERMal Freq: ONCE Start Date: 12/24/13 No administration times (back 96 hours, ahead 96 hours). ------heparin (PF) 2 units/ml in NS infusion 2,000 Units #[id number] Admin Amount: 1,000 mL = 2,000 Units of 2 Units/mL Ordered Dose: 1,000 mL [place]: Irrigation Freq: ONCE Start Date: 12/24/13 No administration times (back 96 hours, ahead 96 hours). ------heparinized saline 2 units/mL infusion 1,000 Units #[id number] Admin Amount: 500 mL = 1,000 Units of 2 Units/mL Ordered Dose: 500 mL [place]: IntraarTERial Freq: ONCE Start Date: 12/24/13 No administration times (back 96 hours, ahead 96 hours). ------0.9% sodium chloride infusion #[id number] Ordered Dose: 75 mL/hr Route: IntraVENous Freq: CONTINUOUS Start Date: 12/24/13 Rate: 75 mL/hr Duration: No administration times (back 96 hours, ahead 96 hours). ------ioversol (OPTIRAY) 320 mg iodine/mL contrast injection 1-100 mL #[id number] Admin Amount: 1-100 mL Ordered Dose: 1-100 mL Route: IntraVENous Freq: RAD O NCE Start Date: 12/24/13 No administration times (back 96 hours, ahead 96 hours).Maxwell Bray MR#: [id number] * Rm: 441-01Ht: 5' 5.75" Wt: 300 lb Cod e: Full Code Iso:Diagnosis:Encephalopathy acute [G93.40]Allergies: No Known Allergies -------- Current as of: 12/05/19 180 NB=New Bag --gadobutrol (GADAVIST) contrast solution 1-10 mL #[id number] Admin Amount: 1-10 mL Ordered Dose: 1-10 mL Route: IntraVENous Freq: RAD O NCE Start Date: 01/13/14 No administration times (back 96 hours, ahead 96 hours). ------sodium chloride (NS) flush 5-10 mL #[id number] Admin Amount: 5-10 mL Ordered Dose: 5-10 mL Route: IntraVENous Freq: RAD ONCE Start Date: 01/13/14 No administration times (back 96 hours, ahead 96 hours). ------sodium chloride (NS) 0.9 % flush #[id number] Ordered Dose: Route: Freq: Start Date: 01/13 No administration times (back 96 hours, ahead 96 hours). ------morphine injection 2 mg #[id number] Admin Amount: 1 mL = 2 mg of 2 mg/mL Ordered Dose: 2 mg Route: IntraVENous Freq: NOW Start Date: 03/13/15 No administration times (back 96 hours, ahe ad 96 hours). ------influenza vaccine (4 yr+)(PF) (FLUCELVAX QUAD) inj ection 0.5*#[id number] Admin Amount: 0.5 mL Ordered Dose: 0.5 mL Route: IntraMUSCular Freq: PRIOR TO DISCHARGE Start Date: 03/30/16 No administration times (back 96 hours, ahead 96 hours). ------oxyCODONE-acetaminophen (PERCOCET) 5-325 mg per tablet 1 Tab #[id number] Admin Amount: 1 Tab Ordered Dose: 1 Tab Route: Oral Freq: NOW Start Date: 09/07/17 No administration times (back 96 hours, ahead 96 hours). ------barium sulfate (READICAT) 2.1 % (w/v), 2.0 % (w /w) oral suspension 9*#[id number] Admin Amount: 900 mL Ordered Dose: 900 mL Route: Oral Delgado q: RAD ONCE Start Date: 10/15/17 No administration times (back 96 hours, ahead 96 hours). ------iopamidol (ISOVUE 300) 61 % contrast injection 100 mL #[id number] Admin Amount: 100 mL Ordered Dose: 100 mL Route: IntraVENous Freq: RAD ONC E Start Date: 10/15/17 No administration times (back 96 hours, ahead 96 hours).Maxwell Bray MR#: [id number] * Rm: 441-01Ht: 5' 5.75" Wt: 300 lb Code: Full Code Iso:Diagnosis:Encephalopathy acute [G93.40]Allergies: No Known Allergies -------- Current as of: 12/05/19 180 NB=New Bag --risperiDONE (RisperDAL m-tabs) disintegrating tablet 1 mg #[id number] Admin Amount: 1 Tab (1 x 1 mg Tab) Ordered Dose: 1 mg Route: Oral Freq: ONCE Start Date: 12/24/17 No administration times (back 96 hours, ahead 96 hours). ------ALPRAZolam (XANAX) tablet 2 mg #[id number] Admin Amount: 4 Tab (4 x 0.5 mg Tab) Ordered Dose: 2 mg Route: Ora l Freq: NOW Start Date: 12/24/17 No administration times (back 96 hours, ahe ad 96 hours). ------lamoTRIgine (LaMICtal) tablet 100 mg #[id number] Admin Amount: 1 Tab (1 x 100 mg Tab) Ordered Dose: 100 mg Route: Oral Delgado q: ONCE Start Date: 12/24/17 No administration times (back 96 hours, ahead 96 hours). ------OLANZapine (ZyPREXA zydis) disintegrating tablet 5 mg #[id number] Admin Amount: 1 Tab (1 x 5 mg Tab) Ordered Dose: 5 mg Route: Oral [place] q: ONCE Start Date: 12/25/17 No administration times (back 96 hours, ahead 96 hours). ------LORazepam (ATIVAN) tablet 2 mg #[id number] Admin Amount: 4 Tab (4 x 0.5 mg Tab) Ordered Dose: 2 mg Route: Ora l Freq: NOW Start Date: 12/25/17 No administration times (back 96 hours, [facility] ad 96 hours). ------LORazepam (ATIVAN) injection 1 mg #[id number] Admin Amount: 0.5 mL = 1 mg of 2 mg/mL Ordered Dose: 1 mg Route: Int Katherin Freq: NOW Start Date: 12/25/17 No administration times (back 96 hours, e ad 96 hours). ------barium sulfate (EZ PAQUE) 96 % (w/w) contrast suspension 17 6 g #[id number] Admin Amount: 176 g Ordered Dose: 176 g Route: Oral Freq: RAD ONCE Start Date: 08/02/18 No administration times (back 96 hours, ahead 96 hours). ------barium sulfate (EZ PAQUE) 96 % (w/w) contrast s uspension 176 g #[id number] Admin Amount: 176 g Ordered Dose: 176 g Route: Oral Delgado q: RAD ONCE Start Date: 08/02/18 No administration times (back 96 hours, ahead 96 hours).Maxwell Ritter MR#: [id number] * Rm: 441-01Ht: 5' 5.75" Wt: 300 lb Cod e: Full Code Iso:Diagnosis:Encephalopathy acute [G93.40]Allergies: No Known Allergies -------- Current as of: 12/05/191806 NB=New Bag --aspirin chewable tablet 162 mg #[id number] Admin Amount: 2 Tab (2 x 81 mg Tab) Ordered Dose: 162 mg Route: Oral Freq: NOW Start Date: 08/10/19 No administration times (back 96 hours, ahead 96 hours). ------0.9% sodium chloride infusion 1,000 mL #[id number] Admin Amount: 1,000 mL Ordered Dose: 1,000 mL Route: IntraVENous Freq: ONC E Start Date: 08/16/19 Rate: 1,000 mL/hr Duration: No administration ti mes (back 96 hours, ahead 96 hours). ------methylPREDNISolone (PF) (Solu-MEDROL) injection 125 mg #[id number] Admin Amount: 2 mL = 125 mg of 125 mg/2 mL Ordered Dose: 125 mg Route: Int raVENous Freq: NOW Start Date: 08/16/19 No administration times (back 96 hours, ahe ad 96 hours). ------aspirin chewable tablet 162 mg #[id number] Admin Amount: 2 Tab (2 x 81 mg Tab) Ordered Dose: 162 mg Route: Oral Delgado q: NOW Start Date: 08/16/19 No administration times (back 96 hours, ahead 96 hours). ------haloperidoL (HALDOL) tablet 5 mg #[id number] Admin Amount: 1 Tab (1 x 5 mg Tab) Ordered Dose: 5 mg Route: Oral [place]gado q: ONCE Start Date: 10/30/19 No administration times (back 96 hours, ahead 96 hours). ------cefTRIAXone (ROCEPHIN) 1 g in 0.9% sodium chloride (MBP/ADV) 50 m L M*#[id number] Admin Amount: 1 g Ordered Dose: 1 g Route: IntraVENous Freq: NOW Start Date: 12/05/19 Rate: 100 mL/hr Duration: 30 Minutes Administration linda es (back 96 hours, ahead 96 hours): 12/05/19: 1428NB -----0.9% sodium chloride infusion #[id number] Ordered Dose: 125 mL/hr Route: IntraVENous Freq: CONTINUOUS Start Date: 12/05/19 Rate: 125 mL/hr Duration: Administration times (back 96 hours, ahead 96 hours): 12/05/19: 1408NBLuisitoMaxwell donovan MR#: [id number] * Rm : 441-01Ht: 5' " Wt: 300 lb Code: Full Code Iso:Diagnosis:Encephalopathy acute [G93. 40]Allergies: No Known Allergies -------- Current as of: 12/05/19 1807 NB=New Bag --enoxaparin (LOVENOX) injection 40 mg #[id number] Admin Amount: 0.4 mL = 40 mg of 40 mg/0.4 mL Ordered Dose: 40 mg [place]: SubCUTAneous Freq: EVERY 24 HOURS Start Date: 12/05/19 Administration times (back 96 h ours, ahead 96 hours): 12/05/19: 209912/06/19: 209912/07/19: 209912/08/19: 2099 ---furosemide (LASIX) injection 20 mg #[id number] Admin Amount: 2 mL = 20 mg of 10 mg/mL Ordered Dose: 20 mg [place]: IntraVENous Freq: ONCE Start Date: 12/05/19 Administration [...] ormationFollow-up With:Ritika Canas MDDetails:Comments:Contact Info:[place] [address]ia victoria Sosa [phone] Name Value Range Interpretation Code Description Data Melani rce(s) Supporting Document(s ) ID Date Data Source [id number] 12/05/2019 04:36:09 PM EDT [facility] The history is provided by [...] morbidity or mortality cardiac cath at [facility] approx 6-8 months ag o Other [...] QTC Calculation (Bezet) 515 ms Calculated P [place] 40 degrees Calculat ed R [place] 41 degrees Calculated T [place] 147 degrees Diagnosis Sinus tachycardiaProb able left [...] Time: 12/05/19 12:38 PMResult Value Ref Range [place] level 1.53 (HH) 0.6 - 1.2 MMOL/LLACTIC ACID Collection Time: 12/04 12:40 PMResult Value Ref Range Lactic acid 1.1 0.4 - 2.0 MMOL/LEKG:Sinus tachy cardia at 100 BPM, normal axis, nothing acute.Interpreted by Julio Manzo MD11:2 0 AM cardiac catheterization technologist reading shows sinus tachycardia at 100 [...] cardiac monitoring, CXR, and head CT. Will development writer ocephin, IV fluids, and oxygen. Will consult [...] daily asneeded. Other, Phys, Julio Izaguirre MD IKishore, am serving as a scribe [...] Supporting Document(s ) ID Date Data Source [id number] 12/05/2019 04:05:06 PM EDT [facility] [address] [place] [address] [id number] CONSULT NOTEPatient: Maxwell Bray Se x: male [...] or sensory fuentes es. Lab significant of [place] 1.53 and elevatedliver enzymes. Neurology consult ed for encephalopathy/drug adverse reaction.Past Medical History:Diagnosis Date Other unknown and unspecified cause of morbidity or mortality cardiac cath at [facility] approx 6-8 months ago Other unknown [...] QTC Calculation (Bezet) 515 ms Calculated P [place] 40 degrees Calculated R [place] 41 degrees Calculated T [place] 147 degrees Diagnosis Sinus tachycardiaProbable left atrial [...] Time: 12/05/19 12:38 PMResult Value Ref Range [place] level 1.53 (HH) 0.6 - 1.2 MMOL/LLACTIC [...] were created on an independent workstation. 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 Seizure.Plan: Mri Brain Ammonia Monitor lithium level daily EEG - 24 hrs Seizure precautionsPaulson Gerald Flores 2019 3:19 [id number] Name Value Range Interpretation Code Description Data Melani rce(s) Supporting Document(s ) ID Date Data Source [id number] 12/05/2019 03:37:45 PM EDT [facility] sbar-q given to Ev berger to floor Name Value Range Interpretation Code Description Data Melani rce(s) Supporting Document(s ) ID Date Data Source [id number] 12/05/2019 03:29:57 PM EDT [facility] sbar-q given to Sheri UGALDE on floor Name Value Range Interpretation Code Description Data Melani rce(s) Supporting Document(s ) ID Date Data Source [id number] 12/05/2019 03:28:02 PM EDT [facility] History & PhysicalBrian Anam Bray is a [...] h igh dose amytriptylene 200 mg nightly, [place], andVraylar 6 mg. :[place] level on prior admission therapeutic. Patient's wifecontactedthis [...] morbidity or mortality cardiac cath at [facility] approx 6-8 months ag o Other [...] Calculati on (Bezet) 515 ms Calculated P [place] 40 degrees Calculated R [place] 41 degrees Elena culated T [place] 147 degrees Diagnosis Sinus tachycardiaProbable left atrial [...] Time: 12/05/19 12:38 PMResult Value Ref Range [place] level 1.53 (HH) 0.6 - 1.2 MMOL/LLACTIC ACID Collection Time: 12/04 12:40 PMResult Value Ref Range Lactic acid 1.1 0.4 - 2.0 MMOL/All lab results for the last 24 hours reviewed. Serun [place] level toxicAssessment/PlanPrinci pal Problem: Adverse drug reaction, initial encounter (12/05/2019) LithiumActive Prob lems: Encephalopathy acute (12/05/2019) Mbj-utrt-mdqxdvc adverse reaction to med ication (12/05/2019)Neuro, and psych evaluation, hydrationGeorge MD Corey Name Value Range Interpretation Code Description Data Melani rce(s) Supporting Document(s ) ID Date Data Source [id number] 12/06/2019 12:36:10 PM EDT [facility] Name Value Range Interpretation Description Data Sup porting Code Source(s) Document(s ) Service comment [facility] Bacteria [facility] - Good identified in [facility] specimen by Culture ID Date Data Source [id number] 12/05/2019 04:18:26 PM EDT [facility] - Good [facility] Name Value Range Interpretation Description Data Sup porting Code Source(s) Document(s ) Color of Urine YEL Abnormal (applies [facility] - to non-numeric Good results) [facility] Appearance of CLEAR Abnormal (applies [facility] - Urine to non-numeric Good results) [facility] Specific gravity 1.033 1.003-1. Above high normal [facility] - of Urine by 030 Good Refractometry [facility] pH of Urine by 5.5 4.6-8.0 [facility] - Test strip Good [facility] Protein 30 mg/dL NEG Abnormal (applies [facility] - [Mass/volume] in to non-numeric Good Urine by Test results) [facility] Glucose NEG [facility] - [Mass/volume] in Good Urine by [facility] Automated test [facility] strip Ketones 15 mg/dL NEG Abnormal (applies [facility] - [Presence] in to non-numeric Good Urine by results) [facility] test [facility] strip Bilirubin.total NEG Abnormal (applies [facility] - [Presence] in to non-numeric Good Urine results) [facility] Hemoglobin NEG [facility] - [Presence] in Good Urine by Test [facility] Urobilinogen 1.0 0.2-1.0 [facility] - [Presence] in EU/dL Good Urine by [facility] Automated test [facility] strip Nitrite NEG [facility] - [Presence] in Good Urine by [facility] test Hospital strip Leukocyte NEG [facility] - esterase Good [Presence] in [facility] Urine by Hospital Automated test strip Leukocytes 0-5 [facility] - [Presence] in Good Urine sediment [facility] microscopy Erythrocytes 0-2 [facility] - [#/area] in Good Urine sediment [facility] by [facility] high power field Epithelial cells 0-10 [facility] - [#/area] in Good Urine sediment [facility] by [facility] high power field Bacteria NONE Abnormal (applies [facility] - [Presence] in to non-numeric Good Urine sediment results) [facility] by [facility] microscopy ID Date Data Source [id number] 12/05/2019 03:26:35 PM EDT [facility] Name Value Range Interpretation Description Data Sup porting Code Source(s) Document(s ) Bilirubin NEG [facility] [Presence] in [facility] Urine by Hospital Confirmatory method ID Date Data Source [id number] 12/05/2019 02:22:27 PM EDT [facility] I spoke to Dr. Canas regarding Observation Status. Dr. Canas said patient will bemade In Patient Status today. Name Value Range Interpretation Code Description Data Melani rce(s) Supporting Document(s ) ID Date Data Source [id number] 12/05/2019 02:03:27 PM EDT [facility] SW/Psych Screener attempted to meet with Pt for MH evaluation. Pt was foundlying on stretcher with his eyes open, staring at the wall. De Icer knows this Ptfrom previous admission to the medical floor. When ask ed if Pt rememberedwriter, Pt appeared confused, but said he did. Pt stated he fell today, doesn'tremember how he was brought to the hospital. Pt appeared to be searching for hiswords and was having difficulty speaking. Pt unclear of where he is, stating"[place]" when asked where he was and "[place]" when asked what month it was. Whenasked if Pt was exhibiting any feelings of S/I, H/I or A/V Hallucinatio ns, Ptresponded with, "No," and confirmed he has been compliant with his psychiatricm edications. De Icer conferred with ER Attending, Dr. Manzo, who states that Ptwi ll most likely be medically admitted at this time.Krystina Centeno LM, CASAC-2 Name Value Range Interpretation Code Description Data Melani rce(s) Supporting Document(s ) ID Date Data Source [id number] 12/05/2019 12:53:37 PM EDT [facility] CT HEAD W/O CONTRASTPRIOR: Multiple: Mos t [...] Supporting Document(s ) ID Date Data Source [id number] 12/05/2019 01:31:37 PM EDT [facility] Name Value Range Interpretation Description Data Sup porting Code Source(s) Document(s ) Lactate 1.1 0.4-2.0 [facility] - Good [Moles/volu MMOL/L [facility]] in Hospital Serum or Plasma ID Date Data Source [id number] 12/10/2019 05:19:22 AM EDT [facility] Name Value Range Interpretation Description Data Sup porting Code Source(s) Document(s ) Service comment [facility] Bacteria [facility] - Good identified in [facility] specimen by Culture ID Date Data Source [id number] 12/05/2019 02:14:34 PM EDT [facility] Name Value Range Interpretation Description Data Sup porting Code Source(s) Document(s ) [place] 1.53 0.6-1.2 Above upper panic [facility] - Good [Moles/volu MMOL/L limits [facility]] in Hospital Serum or Plasma CALLED TO AND READ BACK BYSUSI GAMBLE 1414 12/05/19 [facility] MARY ID Date Data Source [id number] 12/05/2019 01:31:37 PM EDT [facility] Name Value Range Interpretation Description Data Sup porting Code Source(s) Document(s ) Troponin 0.00-0.05 [facility] - Good I.cardiac [facility] [Mass/volume Hospital ] in Serum or Plasma [...] to 1.50 ng/mL ID Date Data Source [id number] 12/05/2019 01:31:37 PM EDT [facility] Value Range Interpretation Description Data Sup porting Code Source(s) Document(s ) Sodium 134 136-145 Below low normal [facility] - Good [Moles/volume] mmol/L [facility] in Serum or Hospital Plasma Potassium 3.5 3.5-5.1 [facility] - Good [Moles/volume] mmol/L [facility] in Serum or Hospital Plasma Chloride 104 98-107 [facility] - Good [Moles/volume] mmol/L [facility] in Serum or Hospital Plasma Carbon 26 21-32 [facility] - Good dioxide, total mmol/L [facility] [Moles/volume] Hospital in Serum or Plasma Anion gap in 7 mmol/L 10-20 Below low normal [facility] - Go od Serum or [facility] Plasma [facility] Glucose 127 74-106 Above high normal [facility] - Good [Mass/volume] mg/dL [facility] in Serum or Hospital Plasma Urea nitrogen 21 mg/dL 7-18 Above high normal [facility] - Good [Mass/volume] [facility] in Serum or Hospital Plasma Creatinine 0.94 0.70-1.3 [facility] - Good [Mass/volume] mg/dL 0 [facility] in Serum or Hospital Plasma Glomerular >60 [facility] - Good filtration [facility] rate/1.73 sq M Hospital predicted among blacks [Volume Rate/Area] in Serum or Plasma by Creatinine-bas ed formula (MDRD) Glomerular >60 [facility] - Good filtration [facility] rate/1.73 sq M Hospital predicted among non-blacks [Volume Rate/Area] in Serum or Plasma by Creatinine-bas ed formula (MDRD) (NOTE)Estimated GFR is calculated using the Modification of Diet in RenalDisease (MDRD) Study equation, reported for both Americans(GFRAA) and non- Americans (GFRNA), and normalized to 1.7 2g1mpgt surface area. The physician must decide which [...] normal [facility] - Good Serum or Plasma [facility] Bilirubin.total 0.9 mg/dL 0.2-1.0 [facility] - Good [Mass/volume] in Serum or [facility] Plasma Alanine aminotransferase 34 U/L 13-61 [facility] - Good [Enzymatic activity/volume] [facility] in Serum or Plasma Aspartate aminotransferase 47 U/L 15-37 Above high [facility] - Good [Enzymatic activity/volume] normal [facility] in Serum or Plasma by With P-5'-P Alkaline phosphatase 171 U/L 45-117 Above high [facility] - Good [Enzymatic activity/volume] normal [facility] in Serum or Plasma Protein [Mass/volume] in 7.5 g/dL 6.4-8.2 [facility] - Good Serum or Plasma [facility] Albumin [Mass/volume] in 3.8 g/dL 3.5-4.7 [facility] - Good Serum or Plasma by [facility] Bromocresol purple (BCP) dye binding method Globulin [Mass/volume] in 3.7 g/dL 1.7-4.7 [facility] - Good Serum by calculation [facility] Albumin/Globulin [Mass 1.0 0.7-2.8 [facility] - Good Ratio] in Serum or Plasma [facility] ID Date Data Source [id number] 12/05/2019 01:31:37 PM EDT [facility] - Good [facility] Name Value Range Interpretation Description Data Sup porting Code Source(s) Document(s ) Magnesium 2.9 mg/dL 1.6-2.6 Above high normal [facility] - Good [Mass/volume] [facility] in Serum or Hospital Plasma ID Date Data Source [id number] 12/05/2019 01:20:04 PM EDT [facility] - Good [facility] Name Value Range Interpretation Description Data Sup porting Code Source(s) Document(s ) Prothrombin 10.6 sec 9.4-11.1 [facility] - Good time (PT) [facility] INR in 1.0 0.8-1.2 [facility] - Good Platelet poor [facility] plasma by [facility] Coagulation assay ID Date Data Source [id number] 12/05/2019 01:07:21 PM EDT [facility] - Good [facility] Name Value Range Interpretation Description Data Sup porting Code Source(s) Document(s ) Leukocytes 12.4 4.8-10.6 Above high normal [facility] - [#/volume] in K/uL Good Blood by [facility] Automated count [facility] Erythrocytes 5.03 4.70-6.0 [facility] - [#/volume] in M/uL 0 Good Blood by [facility] Hemoglobin 15.4 14.0-18. [facility] - [Mass/volume] in g/dL 0 Good Blood [facility] Hematocrit 45.8 % 42.0-52. [facility] - [Volume 0 Good Fraction] of [facility] Blood by [facility] Automated count Erythrocyte mean 91.1 FL 81.0-94. [facility] - corpuscular 0 Good volume [Entitic [facility] volume] by [facility] Automated count Erythrocyte mean 30.6 PG 27.0-35. [facility] - corpuscular 0 Good hemoglobin [facility] [Entitic mass] Hospital by Automated count Erythrocyte mean 33.6 30.7-37. [facility] - corpuscular g/dL 3 Good hemoglobin [facility] [Mass/volume] by Automated count Erythrocyte 12.9 % 11.5-14. [facility] - distribution 0 Good width [Ratio] by [facility] Automated count Hospital Platelets 164 K/uL 130-400 [facility] - [#/volume] in [facility] Blood by [facility] Automated count [facility] Platelet mean 9.5 FL 9.2-11.8 [facility] - volume [Entitic Good volume] in Blood [facility] by Automated Hospital count Nucleated 0.0 PER 0 [facility] - erythrocytes/100 100 WBC Good leukocytes [facility] [Ratio] in Blood [facility] Nucleated 0.00 0.0-0.01 [facility] - erythrocytes K/uL Good [#/volume] in [facility] Segmented 80 % 48.0-72. Above high normal [facility] - neutrophils/100 0 [facility] leukocytes in [facility] Lymphocytes/100 8 % 18.0-40. Below low normal [facility] - leukocytes in 0 [facility] Monocytes/100 10 % 2.0-12.0 [facility] - leukocytes in [facility] Eosinophils/100 1 % 0.0-7.0 [facility] - leukocytes in [facility] Basophils/100 0 % 0.0-3.0 [facility] - leukocytes in [facility] Immature 0 % 0-0.5 [facility] - granulocytes/100 Good leukocytes in [facility] by Hospital Automated count Segmented 10.0 2.3-7.6 Above high normal [facility] - neutrophils K/UL Good [#/volume] in [facility] Lymphocytes 1.0 K/UL 0.9-4.2 [facility] - [#/volume] in [facility] Monocytes 1.2 K/UL 0.1-1.7 [facility] - [#/volume] in [facility] Eosinophils 0.1 K/UL 0.0-1.0 [facility] - [#/volume] in [facility] Basophils 0.0 K/UL 0.0-0.4 [facility] - [#/volume] in [facility] Immature 0.1 K/UL 0.0-0.17 [facility] - granulocytes Good [#/volume] in [facility] by Hospital Automated count Differential [facility] - cell count Good method - Blood [facility] ID Date Data Source [id number] 12/10/2019 05:19:23 AM EDT [facility] Name Value Range Interpretation Description Data Sup porting Code Source(s) Document(s ) Service comment [facility] Bacteria [facility] identified in [facility] specimen by Culture ID Date Data Source [id number] 12/05/2019 12:24:35 PM EDT [facility] PELVIS one view.History: TraumaThe study is suboptimal due to the patient's body habitus.There is no evidence of fracture , dislocation, subluxation, bone erosion orarthritis.IMPRESSION: Grossly normal s tudy. Signing date/time: 12/05/2019 12:24 PMSigned by: CURTIS VARMA Name Value Range Interpretation Code Description Data Melani rce(s) Supporting Document(s ) ID Date Data Source [id number] 12/05/2019 12:23:11 PM EDT [facility] CHEST 1 view (s)HISTORY: Chest pain.COMP [place]: [...] Supporting Document(s ) ID Date Data Source [id number] 12/05/2019 11:34:39 AM EDT [facility] BIBA for fall in the middle of the night while going to bathroomC/p left hip pain Name Value Range Interpretation Code Description Data Melani rce(s) Supporting Document(s ) ID Date Data Source [id number] 12/05/2019 11:21:27 AM EDT [facility] Please enter the current weight for this patient in [facility]. Thank you. Name Value Range Interpretation Code Description Data Melani rce(s) Supporting Document(s ) ID Date Data Source [id number] 11/23/2019 02:02:47 PM EDT [facility] Discharge SummaryPatient: Maxwell mackey Sex: male DOA: [...] E66.01ICD-9-CM: 278.01 07/19/2018 - Present Spells ICD-10-CM: [id number]-2-PA: IMO00 01 04/08/2016 - Present Seizure disorder [...] tr eated with parenteral hydration with benefit b5jslqgeulzsmpknybj responses. Of note i s fact that patient was scheduled to begin ECTtreatment for depression when Covid 1 9 pandemic curtained this plan.Consults: PsychiatrySignificant Diagnostic Studies : labs: microbiology: , radiology: and cardiacgraphics:Discharge Medications: @DISCHARGEMEDLIST@Activity: Activity as toleratedDiet: Resume previous dietWound Care: None neededFollow-up: This examiner to follow in officeGeorjacqueline Canas MD Name Value Range Interpretation Code Description Data Melani rce(s) Supporting Document(s ) ID Date Data Source [id number] 11/03/2019 09:41:35 PM EDT [facility] Verbal shift change report given to , RN (oncoming nurse) by Scott Beverly RN (offgoing nurse). Report included the fo llowing information SBAR, Kardex,Intake/Output, MAR and Recent Res ults. Name Value Range Interpretation Code Description Data [facility](s) Supporting Document(s ) ID Date Data Source [id number] 11/03/2019 03:34:07 PM EDT [facility] Per psych note, CM to confirm patient ap pt with psychiatristCall to Dr Mateo Méndez office # [phone], office [facility] ent aware of # to call to make his own appt, psychiatry info placed on AVs [facility] ent states his will be coming this evening to drive him homeCare Management InterventionsPCP Verified by CM: YesPalliative Care Criteria Met (RRAT>21 & CHF Dx)?: NoMode of Transport at Discharge: Other (see comment)( yanni maciel between approx5-6)Transition of Care Consult (CM Consult): Discharge Planning Physical Therapy Consult: NoOccupational Therapy Consult: NoSpeech Therapy Consul t: NoCurrent Support Network: Lives with Spouse, Own Home( [place] [phone])Confirm Follow Up Transport: FamilyThe Patient and/or Patient [...] Name Value Range Interpretation Code Description Data [facility](s) Supporting Document(s ) ID Date Data Source [id number] 11/03/2019 02:45:48 PM EDT [facility] PHYSICAL THERAPY TREATMENTPatient: Maxwell Bray (49 y.o. [...] was discussed with: Registered Nurse and patientMichael palma, PT, DPT Time Calculation: 18 mins Name Value Range Interpretation Code Description Data Melani rce(s) Supporting Document(s ) ID Date Data Source [id number] 11/03/2019 01:09:08 PM EDT [facility] General Daily Progress NoteAdmit Date: Hospital day: [...] past 8 hrs: BP Temp Pulse Resp [id number]/03/19 0752 115 /76 97.6 F (36.4 C) [...] Supporting Document(s ) ID Date Data Source [id number] 11/03/2019 10:52:30 AM EDT [facility] S/O patient has seen for follow up via V ideo . He is doing much better. Hedenies any auditory or visual hallucination any mor eHe has no suicidal or homicidal thoughtsHe reports that he sees Dr. marie every ot her weeksPt wants to follow up with Dr. Marie after dischargePlan continue on a ll current psychotropic medications Requesting family service caseworker to confirm his a ppointment with Dr. mariebefore he discharged Please re consult if n eeded Name Value Range Interpretation Code Description Data [facility] rce(s) Supporting Document(s ) ID Date Data Source [id number] 11/03/2019 07:12:34 AM EDT [facility] Bedside and Verbal shift change report g iven to Meño Rose, RN (oncomingnurse) by June Ochoa RN (offgoing nurse). Repor t included the followinginformation SBAR, Kardex, Intake/Output, MAR, Recent Resul ts and Med Rec Status. Name Value Range Interpretation Code Description [facility] Supporting Document(s ) ID Date Data Source [id number] 11/02/2019 11:18:25 PM EDT [facility] Problem: Falls - Risk ofGoal: *Absence o [...] Harsh Scale and appropriate interventio ns in thekindred healthcaresheet.Outcome: Progressing Towards GoalNote: Pressure Injury Interv entions:Sensory [...] Name Value Range Interpretation Code Description Data [facility] Supporting Document(s ) ID Date Data Source [id number] 11/02/2019 07:34:02 PM EDT [facility] Bedside shift change report given to GILLIAN KEATING (oncoming nurse) by Meño Rose(offgoing nurse). Report included the following information SBAR, Kardex andIntake/Output. Name Value Range Interpretation Code Description Data [facility](s) Supporting Document(s ) ID Date Data Source [id number] 11/02/2019 05:14:50 PM EDT [facility] Telehealth Progress NotePursuant to the emergency declaration [...] conducted via [] Telephone [x] VideoconferenceDate: 11/02/2019Accodarian Franny mber: [id number]: Maxwell Robin & M PROGRESS NOTE:Coordinated treatment team rounds conducted with psychiatrist, patient, nursesand/or socially responsible investment adviser present ; dis cussions held with family service caseworker and/or familymembers; Chart reviewed in full in cluding test consultant notes, ancillary staffnotes, vitals and labs in [facility] EMR reviewed in full.SUBJECTIVE: Pt seen for first time on Video with my SW Mendy And RN , hereports less hallucinations , as they are still there in the morning But overall better since got back on vraylar told me was scheduled for ECT at [facility] but due to elective , [...] past 8 hrs: Temp Pulse Resp BP VnE589/20 1546 98.3 F (36.8 C) 84 18 [...] (LOVENOX) injection 40 mg 40 mg SubCUTAneous [id number] Medications:C urrent Facility-Administered MedicationsMedication Dose Route Frequen [...] ENOX) injection 40 mg 40 mg SubCUTAneous [id number]/PLAN:Continue current kalie atment as pt is stabalizingPatient [...] Supporting Document(s ) ID Date Data Source [id number] 11/02/2019 03:02:33 PM EDT [facility] General Daily Progress NoteAdmit Date: Hospital day: .tdSubjective:Patient more responsive, relates jumbled speech earlier today now cleared, alsorelates hallucinatory ideation "talking to his b jesus manueler who was swimming". Onquestioning benefit of Vraylar [...] (LOVENOX) injection 40 mg 40 mg SubCUTAneous D72HHbsrvidsq:Patient Vitals for the past 8 hrs: BP [...] contrast. Sagittal and coronal reconstruction was performed.Uti Six Degrees of Data industrial maintenance technician algorithm the examination was performed to optimizeimaging [...] Supporting Document(s ) ID Date Data Source [id number] 11/02/2019 07:48:14 AM EDT [facility] Verbal shift change report given to Jody wells RN (oncoming nurse) by Juliane UGALDE (offgoing nurse). Report included the following information SBAR,Kardex, Intake/Output, MAR and Recent Results Name Value Range Interpretation Code Description Data Melani rce(s) Supporting Document(s ) ID Date Data Source [id number] 11/02/2019 05:41:52 AM EDT [facility] Patient AOX3 with periodic confusion. In bed watching TV. All med's given asordered by MD, tolerated well. Fall precaution m easures reinforced. Call bellwithin reach, bed in low position. Has urinal and comm ode at bedside. Voices nocomplaint at this time. Will continue to monitor pt. Name Value Range Interpretation Code Description Data Melani rce(s) Supporting Document(s ) ID Date Data Source [id number] 11/01/2019 08:46:30 PM EDT [facility] Problem: Falls - Risk ofGoal: *Absence o [...] Towards GoalProblem: Patient Education: Go to Pa óscar Education ActivityGoal: Patient/Family EducationOutcome: Progressing Towards Go [...] Name Value Range Interpretation Code Description Data [facility] Supporting Document(s ) ID Date Data Source [id number] 11/01/2019 08:00:09 PM EDT [facility] Verbal shift change report given to Ly vitale RN (oncoming nurse) by SUSI Palacio (offgoing nurse). Report included the following information SBAR,Intake/Output, MAR and Recent Results. Name Value Range Interpretation Code Description Data [facility] rce(s) Supporting Document(s ) ID Date Data Source [id number] 11/01/2019 03:49:42 PM EDT [facility] Adult Progress NoteDate: 11/01/2019Account Number: [id number]: Maxwell Mendieta TrimbleDiagnosis: History of mood and [...] 07/21/2019 Morbid obesity (HCC) 07/21/2019 Severe obesity ([facility] [...] depression ([facility]) (10/29/2019)Psychotherapy (type and freque ncy) supportiveConsultation psychiatryMedications:Current [...] (LOVENOX) injection 40 mg 40 mg SubCUTAneous A65KGbc following information was reviewed and discussed: Patient [...] Supporting Document(s ) ID Date Data Source [id number] 11/01/2019 02:42:08 PM EDT [facility] General Daily Progress NoteAdmit Date: Hospital day: [...] past 8 hrs: BP Temp Pulse Resp DbH82311/01/19 0715 101/67 98 F (36.7 C) 70 [...] Sagittal and coronal reconstr uction was performed.Utilizing industrial maintenance technician algorithm the examination was performed to optimizeimaging [...] Prominent interstitial markings arefelt to reflect vascular microbiology manager 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 Repeat PA andlateral views the chest are advised i f there is clinical concern for pneumoniaor congestive failure.Assessment:Active Pro blems: Bipolar disorder with severe depression (HCC) (10/29/2019)Plan:Marco g status Name Value Range Interpretation Code Description Data Melani rce(s) Supporting Document(s ) ID Date Data Source [id number] 11/01/2019 07:08:12 AM EDT [facility] Verbal shift change report given to Chandrakant Albert RN (oncoming nurse) Colin Hoffmann RN (offgoing nurse). Report incl uded the following informationSBAR, Kardex, Intake/Output, MAR and Recent Results. Name Value Range Interpretation Code Description Data [facility] rce(s) Supporting Document(s ) ID Date Data Source [id number] 10/31/2019 07:59:03 PM EDT [facility] Verbal shift change report given to Shreya adrian RN (oncoming nurse) by SUSI Palacio (offgoing nurse). Report included the following information SBAR,Kardex, Intake/Output, MAR and Recent Results. Name Value Range Interpretation Code Description Data [facility](s) Supporting Document(s ) ID Date Data Source [id number] 10/31/2019 05:09:32 PM EDT [facility] Telehealth ConsultationPursuant to the e mergency declaration [...] [] Telephone [x] VideoconferenceSubjective:Patient: Maxwell BrayMRN #: [id number]: [id number]: 49 y.o. Sex: maleAdm it Date: 10/29/2019Attending: [...] or mortal ity cardiac cath at [facility] approx 6-8 months ago Other unknown [...] past 8 hrs: BP Temp Pulse Resp FjW136/02/11 0754 120/60 97.2 F (36.2 C) 70 20 95 %MENTA L STATUS EXAM:FINDINGS WITHIN NORMAL LIMITS (WNL) UNLESS OTHERWISE STATED BELOW:Sens orium [id number] Well relatedAppearance: OverweightMotor Behavior: Not examined Speech: [...] Supporting Document(s ) ID Date Data Source [id number] 10/31/2019 04:37:18 PM EDT [facility] - [place] [address] [address] [place], [place] [address]JKMXXAW: MAXWELL BRAYMRN: [id number]: [id number]#: [id number] DATE: 10/29/2019 CONSULTATIONHISTORY OF PRESENT ILLNESS: The [...] Klonopin.PAST MEDICAL HISTORY: Cardiac cath at [facility] six to eight months ago, concussions,periodic [...] 27, alkaline phosphatase 139, lithium level 0.20. LUNAMICHAEL Jose AGUIRRE, MDDD: 10/30/2019 14:44:41/BR /[id number] / [id number] Name Value Range Interpretation Code Description Data Melani rce(s) Supporting Document(s ) ID Date Data Source [id number] 10/31/2019 01:47:36 PM EDT [facility] General Daily Progress NoteAdmit Date: Hospital day: [...] C) 70 20 95 %No intake/output data recorded.1 - 10/30 0700In: 1792 [P.O.:592; I.V.:1200]Out: 1050 [...] Supporting Document(s ) ID Date Data Source [id number] 10/31/2019 12:59:26 PM EDT [facility] physical Therapy TREATMENTPatient: Maxwell Bray (49 y.o. [...] care was discussed wit h: Registered Nadia Enrique, PT,DPT Time Calculation: 24 mins Name Value Range Interpretation Code Description Data Melani rce(s) Supporting Document(s ) ID Date Data Source [id number] 10/31/2019 07:10:46 AM EDT [facility] Bedside and Verbal shift change report g iven to Samy UGALDE (oncoming nurse)by Cristofer Valenzuela RN (offgoing nurse). Repo rt included the following information SBAR, Kardex, MARand Recent Results. Name Value Range Interpretation Code Description Data [facility] rce(s) Supporting Document(s ) ID Date Data Source [id number] 10/30/2019 11:27:14 PM EDT [facility] Problem: Falls - Risk ofGoal: *Absence o [...] Supporting Document(s ) ID Date Data Source [id number] 10/30/2019 08:09:55 PM EDT [facility] Susi Garcia called as pt has been [...] be ordered as non formulary also At [facility] Name Value Range Interpretation Code Description Data [facility] rce(s) Supporting Document(s ) ID Date Data Source [id number] 10/30/2019 08:06:30 PM EDT [facility] Telephoned Dr. Oc tompkins pt's c/o new sy mptoms of hallucinations. Orderedreceived, relayed to RN, SUSI Marroquin on scene shifter Name Value Range Interpretation Code Description Data [facility] Supporting Document(s ) ID Date Data Source [id number] 10/30/2019 08:01:35 PM EDT [facility] Verbal shift change report given to Cecilia wells (oncoming nurse) by Samy Albert RN (offgoing nurse). Report included the fo llowing information SBAR, ProcedureSummary, Intake/Output, MAR and Recent Results. Name Value Range Interpretation Code Description Data [facility] Supporting Document(s ) ID Date Data Source [id number] 10/30/2019 02:58:51 PM EDT [facility] Problem: Mobility Impaired (Adult and Pe diatric)Goal: [...] of morbidity or mortality cardiac cath at [facility] approx 6-8 months ago Other unknown [...] Home: NoneCritical Behavior:Neurologic State: AlertOrientation Level: Oriented [id number]: Appropriate for age attention/concentrationSafety/Judgement: Awareness of environmentSkin:Strength:Strength: [...] Supporting Document(s ) ID Date Data Source [id number] 10/30/2019 02:50:37 PM EDT [facility] - [facility] Telehealth ConsultationPursuant to the e mergency [...] [] Telephone [] VideoconferenceSubjective:Patient: Maxwell BrayMRN #: [id number]: [id number]: 49 y.o. Sex: maleAdm it Date: 10/29/2019Attending: [...] Supporting Document(s ) ID Date Data Source [id number] 10/30/2019 02:06:26 PM EDT [facility] Care Management InterventionsPCP Verifie d by CM: YesPalliative Care Criteria Met (RRAT>21 & CHF Dx)?: NoMode of Transport at Discharge: Other (see comment)(family)Transition of Care Consu lt (CM Consult): Discharge PlanningPhysical Therapy Consult: NoOccupational Therapy Consult: NoSpeech Therapy Consult: NoCurrent Support Network: Lives with Spouse, Own Home( [place] [phone])Confirm Foll ow Up Transport: FamilyThe Patient and/or Patient Statistical Reporting Analyst was Provided with a Choice of Providerand [...] home with his , is completely independent HAT MENDER, emaunel SMYTH. Patient normally works (pre-covid) and drives. CM dept roleexplained, patient is currently denying any HC or rehab needs and states hiswife will drive him home upon DC. PT eval is ordered and pending. CM dept laila lfollow if patient has any PT needs.CASE MANAGEMENT PSYCHOSOCIAL ASSESSMENTMaxwell Bray Admission Date: 10/29/2019MRN: [id number] of : 1970Current date: 10/30/2019DISCHARGE PLAN: homePatient Info rmation:Patients Preferred Name: brianPatient Arrived Via: StretcherTransferred from a [facility] facility: NoInformation Obtained From: PatientPatient Objects to [...] MDAdmitting Provider: Cristi Canas MDCHILDREN'[facility] HAT MENDER: naPayor: Payor: [facility] / Plan: [facility] HE[facility]AN /Product Type: HMO /Seco ndary Payor: @SECINSGROUPNAME@Bipolar disorder with severe depression (HCC) [...] Notes:Long-Term Care Insurance If Applicable Notes:Current Functioning:Aftab gujohn barriers: Notes:Understanding nature/impact of illness: Notes:Ability to participate in plan: Notes:Realistic Problem solving and planning: Notes:Adeq uate coping skills: Notes:Congregational/Cultural barriers: Notes:If unable to assess or n ot applicable: Notes:Suicide Assessment:Primary Diagnosis or Primary Complaint of an Emotional Behavior Disorder: NoPatient is Currently Experiencing Depr ession: NoSuicidal Ideation/Attempts: NoHomicidal Ideation/Attempts: NoAlcohol /Drug Intoxication: NoHallucinations/Delusions: NoPending, A ctive, or Temporary Alf Orders: NoAggressive/Inappropriate Behavior: NoR eadmit Risk:Support Systems: Family member(s)Advanced Care Planning:Confirm Advance Directive: NoneDiscussed with the patient and all questions fully answered . He will call me ifany problems arise. Name Value Range Interpretation Code Description Data Melani rce(s) Supporting Document(s ) ID Date Data Source [id number] 10/30/2019 12:38:13 PM EDT [facility] General Daily Progress NoteAdmit Date: Hospital day: .tdSubjective:Patient markedly improved this am, speech now no rmal. Denies possibleinadvertent overdose of chronic meds. Accepting of psych consult . PT toevaluate. Claims symptoms of mild nausea. Meds reviewed claims to be takin gElavil G 150 mg HS ,Klonopin 1 mg twice a day, [place] 300 twice daily, Vraylar3 m g dailyCurrent [...] past 8 hrs: BP Temp Pulse Resp [id number]/30/19 0727 (!) 130/96 98 F (36.7 C) 81 20 95 %10/30/19 0351 (!) 118/97 98 F (36.7 C) 80 20 94 %No intake/output marlon a recorded.10/27 190 - 10/29 0700In: 148.3 [I.V.:148.3]Out: - Physical [...] Value Range Interpretation Code Description Data [facility] rce(s) Supporting Document(s ) ID Date Data Source [id number] 10/30/2019 07:52:05 AM EDT [facility] Verbal shift change report given to Chandrakant rosa RN (oncoming nurse) Tavares UGALDE (offgoing nurse). Report included the [facility] information SBAR,Kardex, Procedure Summary, Intake/Output, MAR and Recent R esults. Name Value Range Interpretation Code Description Data [facility] rce(s) Supporting Document(s ) ID Date Data Source [id number] 10/30/2019 06:40:05 AM EDT [facility] Pt. AOX3, periodic confusion. Commode an d urinal at bedside. Seizure and fallprecaution measures in place. Voice s no complaint during shift . Name Value Range Interpretation Code Description Data [facility] rce(s) Supporting Document(s ) ID Date Data Source [id number] 10/30/2019 07:29:12 AM EDT [facility] Name Value Range Interpretation Description Data Sup porting Code Source(s) Document(s ) Sodium 139 136-145 [facility] - Good [Moles/volume] mmol/L [facility] in Serum or Hospital Plasma Potassium 3.6 3.5-5.1 [facility] [Moles/volume] mmol/L [facility] in Serum or Hospital Plasma Chloride 110 98-107 Above high normal [facility] - Good [Moles/volume] mmol/L [facility] in Serum or Hospital Plasma Carbon 24 21-32 [facility] dioxide, total mmol/L [facility] [Moles/volume] Hospital in Serum or Plasma Anion gap in 9 mmol/L 10-20 Below low normal [facility] - Go od Serum or [facility] Plasma Hospital Glucose 96 mg/dL 74-106 [facility] [Mass/volume] [facility] in Serum or Hospital Plasma Urea nitrogen 10 mg/dL 7-18 [facility] [Mass/volume] [facility] in Serum or Hospital Plasma Creatinine 0.81 0.70-1.3 [facility] [Mass/volume] mg/dL 0 [facility] in Serum or Hospital Plasma Glomerular >60 [facility] - Good filtration [facility] rate/1.73 sq M Hospital predicted among blacks [Volume Rate/Area] in Serum or Plasma by Creatinine-bas ed formula (MDRD) Glomerular >60 [facility] - Good filtration [facility] rate/1.73 sq M Hospital predicted among non-blacks [Volume Rate/Area] in Serum or Plasma by Creatinine-bas ed formula (MDRD) Calcium 8.2 8.5-10.1 Below low normal [facility] Good [Mass/volume] mg/dL [facility] in Serum or Hospital Plasma ID Date Data Source [id number] 10/30/2019 07:05:07 AM EDT [facility] - Good [facility] Name Value Range Interpretation Description Data Sup porting Code Source(s) Document(s ) Leukocytes 4.8 K/uL 4.8-10.6 [facility] - [#/volume] in Good Blood by [facility] Automated count [facility] Erythrocytes 4.59 4.70-6.0 Below low normal [facility] - [#/volume] in M/uL 0 Good Blood by [facility] Automated count [facility] Hemoglobin 14.0 14.0-18. [facility] - [Mass/volume] in g/dL 0 Good Blood [facility] Hematocrit 42.7 % 42.0-52. [facility] - [Volume 0 Good Fraction] of [facility] Blood by Hospital Automated count Erythrocyte mean 93.0 FL 81.0-94. [facility] - corpuscular 0 Good volume [Entitic [facility] volume] by Hospital Automated count Erythrocyte mean 30.5 PG 27.0-35. [facility] - corpuscular 0 Good hemoglobin [facility] [Entitic mass] Hospital by Automated count Erythrocyte mean 32.8 30.7-37. [facility] - corpuscular g/dL 3 Good hemoglobin [facility] [Mass/volume] by Automated count Erythrocyte 13.3 % 11.5-14. [facility] - distribution 0 Good width [Ratio] by [facility] Automated count Hospital Platelets 159 K/uL 130-400 [facility] - [#/volume] in Good Blood by [facility] Automated count Hospital Platelet mean 8.6 FL 9.2-11.8 Below low normal [facility] - volume [Entitic Good volume] in Blood [facility] by Automated Hospital count Nucleated 0.0 PER 0 [facility] - erythrocytes/100 100 WBC Good leukocytes [facility] [Ratio] in Blood [facility] Nucleated 0.00 0.0-0.01 [facility] - erythrocytes K/uL Good [#/volume] in [facility] Segmented 54 % 48.0-72. [facility] - neutrophils/100 0 Good leukocytes in [facility] Lymphocytes/100 32 % 18.0-40. [facility] - leukocytes in 0 [facility] Blood [facility] Monocytes/100 9 % 2.0-12.0 [facility] - leukocytes in [facility] Eosinophils/100 5 % 0.0-7.0 [facility] - leukocytes in [facility] Basophils/100 1 % 0.0-3.0 [facility] - leukocytes in [facility] Immature 0 % 0-0.5 [facility] - granulocytes/100 Good leukocytes in [facility] Automated count Segmented 2.6 K/UL 2.3-7.6 [facility] - neutrophils Good [#/volume] in [facility] Lymphocytes 1.5 K/UL 0.9-4.2 [facility] - [#/volume] in [facility] Monocytes 0.4 K/UL 0.1-1.7 [facility] - [#/volume] in [facility] Eosinophils 0.2 K/UL 0.0-1.0 [facility] - [#/volume] in [facility] Basophils 0.0 K/UL 0.0-0.4 [facility] - [#/volume] in [facility] Immature 0.0 K/UL 0.0-0.17 [facility] - granulocytes Good [#/volume] in [facility] Blood by [facility] Automated count Differential [facility] - cell count [facility] method - Blood [facility] ID Date Data Source [id number] 10/29/2019 07:40:21 PM EDT [facility] Verbal shift change report given to Wai rogers RN(oncoming nurse) by Elizabeth Meehan RN (offgoing nurse). Report included the fo llowing information SBAR, Kardex, EDSummary, Intake/Output, MAR and Recent Results. Name Value Range Interpretation Code Description Data Melani rce(s) Supporting Document(s ) ID Date Data Source [id number] 10/30/2019 06:54:22 PM EDT [facility] Name Value Range Interpretation Description Data Sup porting Code Source(s) Document(s ) Color of Urine YEL [facility] - [facility] Appearance of CLEAR [facility] - Urine [facility] Specific gravity 1.015 1.003-1. [facility] - of Urine by 030 Good Refractometry [facility] pH of Urine by 6.0 4.6-8.0 [facility] - Test strip [facility] Protein NEG [facility] - [Mass/volume] in Good Urine by Test [facility] Glucose NEG [facility] - [Mass/volume] in Good Urine by [facility] Automated test [facility] strip Ketones NEG [facility] - [Presence] in Good Urine by [facility] Automated test [facility] strip Bilirubin.total NEG [facility] - [Presence] in Good Urine [facility] Hemoglobin NEG [facility] - [Presence] in Good Urine by [facility] Urobilinogen 1.0 0.2-1.0 [facility] - [Presence] in EU/dL Good Urine by [facility] Automated test Hospital strip Nitrite NEG [facility] - [Presence] in Good Urine by [facility] Automated test [facility] strip Leukocyte NEG [facility] - esterase Good [Presence] in [facility] Urine by Hospital Automated test strip ID Date Data Source [id number] 10/29/2019 06:14:12 PM EDT [facility] Spoke with to clarify meds..correct doses obtained Name Value Range Interpretation Code Description Data Melani rce(s) Supporting Document(s ) ID Date Data Source [id number] 10/29/2019 06:01:22 PM EDT [facility] Pt unsure of dose of Vraylar will call w berta Name Value Range Interpretation Code Description Data Melani rce(s) Supporting Document(s ) ID Date Data Source [id number] 10/29/2019 03:56:40 PM EDT [facility] [id number] [facility] [address] [place] MED SUR[address] [place] [address] [phone]/12 Maxwell Bray (Male) [id number] ES I 2 ED Dispo:ADMIT Chief Complaint: Dysarthria, Lethargy Diagnosis: Altered mental status, unspecified altered mental statu s type [] Bipolar disorder with severe depression (HCC) [] Current Providers: Att ending: Cole Ernandez; Cristi Canas Consulting Provider: Cristi Canas Primary Nurse: Kristy Moss Tech: HERMANN GonzalesN: [id number] [employer] [phone] - Bs hsi [facility] MrnMRN: [id number] [employer] [id number] - Bshsi [employer] Medva Age Sex 1970 AGE 49 SEX Male Primary Care Provider: Ritika Canas MD Ccjtddycx: (No Kn own Allergies)Date Reviewed: 10/29/2019Reviewed by: Ritika Canas MD - Review CompleteED Provider Notes: [facility]: [id number]: Cristobal Ernandez MDService: -Author Type: PhysicianFiled: 10/29/19 [...] morbidity or mortality cardiac cath at [facility] approx 6-8 months ago Other unknown [...] QTC Calculation (Bezet) 446 ms Calculated P [place] 53 degrees Calc ulated R [place] 68 degrees Calculated T [place] 0 degrees Diagnosis Sinus tachycardiaProlonged RI intervalNo nspecific intraventricular conduction delayCBC WITH AUTOMATED [...] Time: 10/29/19 10:45 AMResult Value Ref Range [place] level <0.20 (L) 0.6 - 1.2 MMOL/L [...] contrast. Sagittal and coronalreconstruction was performed. Utilizing industrial maintenance technician algorithm theexaminationwas performed to optimize imaging quality [...] status, unspecified altered menta l status type [id number] condition at time of disposition: StableI have [...] by mouth daily. Other,Ailyn Miller Stephen, MD IGayle, am serving as a scribe to document [...] d thediagnostic studies, unless otherwise noted.+ED Orders [id number] CBC WITH AUTOMATED DIFF [# [id number]] Priority: STAT Class: ER Collect Standing Order Information Remaining Occurrences:0 /1 Interval:ONE TIME Last released:10/29/2019 Released orders: SunOctober 29, 2019 11:02 AM by: CRISTOBAL ERNANDEZ [id number] METABOLIC PANEL, COMPREHENSIVE [#[id number]] Bridgette ority: STAT Class: ER Collect Standing Order Information Remaining Occurrences:0/1 Inter haile:ONE TIME Last released:10/29/2019 Released orders: SunOctober 29, 2019 11:02 AM by: CRISTOBAL WADE [id number] PROTHROMBIN TIME + INR [#[id number]] Priority: STAT Class: E R Collect Standing Order Information Remaining Occurrences:0/1 Interval:ONE TI ME Last released:10/29/2019 Released orders: SunOctober 29, 2019 11:02 AM by: BRIE ERNANDEZ EN [id number] PTT [#[id number]] Priority: STAT Class: ER Collect Speci men Source: Blood Standing Order Information Remaining Occurrences:0/1 Interval:ONE TI ME Last released:10/29/2019 Released orders: SunOctober 29, 2019 11:02 AM by: BRIE ERNANDEZ [id number] URINALYSIS W/ RFLX MICROSCOPIC [#[id number]] Priority: STAT Class: ER Collect Sta nding Order Information Remaining Occurrences:0/1 Interval:ONE TIME Last released:0 10/29/2019 Released orders: SunOctober 29, 2019 11:02 AM by: CRISTOBAL ERNANDEZ [id number] LITHIUM [#[id number]] Priority: STAT Class: ER Collect Standing Order Information Remaining Occurrences:0/1 Interval:ONE TIME Last released:10/29/2019 Released orders : SunOctober 29, 2019 11:02 AM by: CRISTOBAL ERNANDEZ [id number] CBC WITH AUTOMATED DIFF [# [id number]] Priority: STAT Class: ER Collect Specimen Source: Whole Blood Specimen Collected: 020 10:45 AM Resulting Agency: [facility] Test ID: [id number] Released on: 0 11:02 AM [id number] METABOLIC PANEL, COMPREHENSIVE [#[id number]] Priority: STAT Class: E R Collect Specimen Source: Plasma Specimen Collected: 10/29/2019 10:45 AM Resulting Agency: [facility] Test ID: MPL Released on: 10/29/2019 11:02 AM [id number] PROTHROMBIN TIME + IN R [#[id number]] Priority: STAT Class: ER Collect Specimen Source: Plasma Specimen Collec hyun: 10/29/2019 10:45 AM Resulting Agency: [facility] Test ID: APTHR Released o n: 10/29/2019 11:02 AM [id number] PTT [#[id number]] Priority: STAT Class: ER Collect Specimen Source: Plasma Specimen Collected: 10/29/2019 10:45 AM Resulting Agency: [facility] Test ID: APTT Released on: 10/29/2019 11:02 AM [id number] URINALYSIS W/ RFLX PR CROSCOPIC [#[id number]] Priority: STAT Class: ER Collect Resulting Agency: [facility] Test ID: UA Released on: 10/29/2019 11:02 AM [id number] LITHIUM [#[id number]] Priority: STAT Class: ER Collect Specimen Source: Serum Specimen Collected: 10/28 10:45 AM Resulting Agency: [facility] Test ID: LI Released on: 10/29/2019 11:02 AM [id number] CBC WITH AUTOMATED DIFF [#[id number]] Priority: STAT Class: E R Collect Standing Order Information Remaining Occurrences:06/25 Interval:TOMORR OW AM [id number] METABOLIC PANEL, BASIC [#[id number]] Priority: STAT Class: ER Collect St anding Order Information Remaining Occurrences:06/25 Interval:TOMORROW AM [id number] CT HEAD W O CONT [#[id number]] Priority: Routine Class: Hospital Performed Standing Or mariano Information Remaining Occurrences:0/1 Interval:ONE TIME Last released:10/29/2019 Released orders: SunOctober 29, 2019 11:02 AM by: CRISTOBAL ERNANDEZ Reason for Exam -> ams IMG 2590 XR CHEST PORT [#[id number]] Priority: STAT Class: Hospital Performe d Standing Order Information Remaining Occurrences:0/1 Interval:ONE TIME Last release d:10/29/2019 Released orders: SunOctober 29, 2019 11:02 AM by: CRISTOBAL ERNANDEZ Reason for Exam -> ams [id number] CT HEAD WO CONT [#[id number]] Priority: STAT Class: Hospital Perfo rmed Specimen Collected: 10/29/2019 11:54 AM Resulting Agency: [facility] Test ID: [id number] [facility] [place] son for Exam -> ams Released on: 10/29/2019 11:02 AM [id number] XR CHEST PORT [#[id number]] Priority: STAT Class: Hospital Performed Specimen Collected: 10/29/2019 12:16 PM Resultin g Agency: [facility] Test ID: [id number] Reason for Exam -> ams Released on: 10/29/2019 11:02 AM [id number] EKG, 12 LEAD, INITIAL [#[id number]] Priority: STAT Class: Hospital Performe d Standing Order Information Remaining Occurrences:0/1 Interval:ONE TIME Last release d:10/29/2019 Released orders: SunOctober 29, 2019 11:02 AM by: CRISTOBAL ERNANDEZ Reason for Exam : -> chest pain [id number] EKG, 12 LEAD, INITIAL [#[id number]] Priority: STAT Class: H ospital Performed Resulting Agency: [facility] Test ID: [id number] Reason for Exam: -> chest pain Releas ed on: 10/29/2019 11:02 AM [id number] POC GLUCOSE [#[id number]] Priority: STAT Cl ass: Hospital Performed Standing Order Information Remaining Occurrences:0/1 Interval:ONE TI ME Last released:10/29/2019 Released orders: SunOctober 29, 2019 11:02 AM by: BRIE ERNANDEZ EN [id number] POC GLUCOSE [#[id number]] Priority: STAT Class: Hospital Performe d Released on: 10/29/2019 11:02 AM [id number] VITAL SIGNS PER UNIT ROUTINE [#[id number]] Priorit y: STAT Class: Hospital Performed Standing Order Information Remaining Occurrences:0/1 Inte rval:CONTINUOUS Last released:10/29/2019 Released orders: SunOctober 29, 2019 2:54 PM by: RITIKA CANAS Comment:More frequently if Indicated. [id number] BEDREST, COMPLETE [#[id number]] Priority: STAT Class: Hospital Performed Standing Order Information Remainin g Occurrences:0/1 Interval:CONTINUOUS Last released:10/29/2019 Released orders : SunOctober 29, 2019 2:54 PM by: RITIKA CANAS [id number] NOTIFY PROVIDER: VITAL SIGNS CHANGES [# [id number]] Priority: STAT Class: Hospital Performed Standing Order [...] Less than 120 ml in 4 hours [id number] APPLY/MAINTAIN SEQUENTIAL COMPRESSIO* [#[id number]] Priority: ST AT Class: Hospital Performed Standing Order Information Remaining Occurrences:0/1 Inter haile:CONTINUOUS Last released:10/29/2019 Released orders: SunOctober 29, 2019 2:54 PM by: RITIKA CANAS [id number] VITAL SIGNS PER UNIT ROUTINE [#[id number]] Priority: STAT Class: H ospital Performed Comment:More frequently if Indicated. Released on: 10/29/2019 2:54 PM [id number] 4 BEDREST, COMPLETE [#[id number]] Priority: STAT Class: Hospital Performed Relea sed on: 10/29/2019 2:54 PM [id number] NOTIFY PROVIDER: VITAL SIGNS CHANGES [#[id number]] Priority: STAT Class: Hospital Performed Temp -> [...] carmen rs Released on: 10/29/2019 2:54 PM [id number] APPLY/MAINTAIN SEQUENTIAL COMPRESSIO* [#[id number]] P riority: STAT Class: Hospital Performed Released on: 10/29/2019 2:54 PM SODIUM CHLORIDE 0.9 % IJ SYRG [#[id number]] Priority: STAT Class: Normal SODIUM CHLORIDE 0.9 % IJ SYRG [#[id number]] Priority: STAT Class: Normal ACETAMINOPHEN 325 MG TABLET [# [id number]] Priority: STAT Class: Normal ENOXAPARIN 40 MG/0.4 ML SUB-Q SYRINGE [#[id number]] Priority: STAT Class: Normal SODIUM CHLORIDE 0.9 % IV [#[id number]] Priority: STAT Class: Normal [id number] GLUCOSE, POC [#[id number]] Priority: Routine Class : ER Collect Resulting Agency: [facility] Test ID: BGG Standing Order Informati on Remaining Occurrences:0/1 Released orders: SunOctober 29, 2019 11:26 AM by: Automatic B [facility] Process [id number] GLUCOSE, POC [#[id number]] Priority: Routine Class : ER Collect Specimen Source: Whole Blood Specimen Collected: 10/29/2019 11:26 AM Resulting Agency: [facility] Test ID: BGG Released on: 10/29/2019 11:26 AM [id number] IP CONSULT TO PRIMARY CARE PROVIDER [#[id number]] Priority: STAT Class: Hospital Performed Standing Order Inf ormation Remaining Occurrences:0/1 Interval:ONE TIME Last released:10/29/2019 Relea sed orders: SunOctober 29, 2019 12:59 PM by: CRISTOBAL ERNANDEZ Reason for Consult: -> admit Did you call or speak to the consulting provider? -> No Consult To -> dr canas [id number] [facility] [#[id number]] Priority: STAT Class: Hospital Performed Reason for Consult: -> ad rei Did you call or speak to the consulting provider? -> No Consult To -> dr canas Released on: 12:59 PM CON53 IP CONSULT TO PSYCHIATRY [#[id number]] Priority: STAT Class: H ospital Performed Standing [...] -> TODAY CON53 IP CONSULT TO PSYCHIATRY [#[id number]] Priority: STAT Class: Hospital Performed Reason for Consult: -> 49 yo male with severe bipolar diseas e, admitted with slurred speech, severe weakness Did you call or speak to t he consulting provider? -> No Consult To -> Dr Aguirre Schedule When? -> TODAY Released on: 10/29/2019 2:54 PM [id number] INITIAL PHYSICIAN ORDER: INPATIENT [#[id number]] Priority: Routine Class : ADT Pend Transfer [...] CANAS Estimated Length of Stay -> 3-4 [facility] Discharge Plan: -> Home with Office Follow-up [id number] INITIAL PHYSICIAN ORDER: INPATIENT [# [id number]] Priority: Routine Class: ADT Pend Transfer Status: [...] Foll ow-up Released on: 10/29/2019 2:43 PM [id number] INITIAL PHYSICIAN ORDER: INPATIENT [#[id number]] Priority: Routine Class: ADT Pend Transfer [...] 3-4 Midnights Discharge Plan: -> Other (Specify) [id number] INITIAL PHYSIC JOSE ORDER: INPATIENT [#[id number]] Priority: Routine Class: ADT Pend Transfer Status: [...] 2:54 PM IVT3 INSERT PERIPHERAL IV [# [id number]] Priority: STAT Class: Hospital Performed Standing Order Information Remaining Occurre nces:0/1 Interval:ONE TIME Last released:10/29/2019 Released orders: SunOctober 28, 020 2:54 PM by: RITIKA CANAS IVT3 INSERT PERIPHERAL IV [#[id number]] Priority: ST AT Class: Hospital Performed Released on: 10/29/2019 2:54 PM CON75 IP CONSULT TO PHYSICAL THERAPY [#[id number]] Priority: STAT Class: Hospital Performed Standing Order Information Remainin g Occurrences:14 Interval:DAILY Last released:10/29/2019 Released orders : SunOctober 29, 2019 2:54 PM by: RITIKA CANAS CON75 IP CONSULT TO PHYSICAL THERAPY [#[id number]] Priority: STAT Class: Hospital Performed Released on: 10/29/2019 2:54 PM COD2 FULL CODE [#[id number]] Priority: STAT Class: Hospital Performed Standing Order Inf ormation Remaining Occurrences:0/1 Interval:CONTINUOUS Last released:10/29/2019 Rel eased orders: SunOctober 29, 2019 2:54 PM by: RITIKA CANAS COD2 FULL CODE [#[id number]] Priority: STAT Class: Hospital Performed Released on: 10/29/2019 2:54 PM [id number] 4 DIET FULL LIQUID [#[id number]] Priority: STAT Class: Hospital Performed Stand ing Order Information Remaining Occurrences:0/1 Interval:DIET EFFECTIVE NOW Last released:10/29/2019 Released orders: SunOctober 29, 2019 2:54 PM by: RITIKA CANAS Comment:A dvance as tolerated to regular diet [id number] DIET FULL LIQUID [#[id number]] Priority: STAT Class: Hospital Performed Comment:Advance as tolerated to regular diet Released on: 10/29/2019 2:54 Maxwell Corona MR#: [id number] * Rm: [id number]: 5' 7" Wt: 3 00 lb Code: Full Code Iso:Diagnosis:Bipolar disorder with severe depression (HCC) [F31.4]Allergies : No Known Allergies -------- Current as of: 10/29/19 1556 ---aspirin (ASPIRIN) tablet 325 mg #[id number] Admin Amount: 1 Tab (1 x 325 mg Tab) Ordered Dose: 325 mg Route: Oral Freq: ONCE Start Date: 12/24/13 No administration times (back 96 hours, ahead 96 hours). ------diphenhydrAMINE (BENADRYL) capsule 50 mg #[id number] Admin Amount: 1 Cap (1 x 50 mg Cap) Ordered Dose: 50 mg [place]: Oral Freq: NOW Start Date: 12/24/13 No administration times (back 96 hours, ahe ad 96 hours). ------diazepam (VALIUM) tablet 5 mg #[id number] Admin Amount: 1 Tab (1 x 5 mg Tab) Ordered Dose: 5 mg Route: Ora l Freq: ONCE Start Date: 12/24/13 No administration times (back 96 hours, e ad 96 hours). ------lidocaine (XYLOCAINE) 10 mg/mL (1 %) injection 1-30 mL #[id number] Admin Amount: 1-30 mL Ordered Dose: 1-30 mL Route: IntraDERMal Freq: ONC E Start Date: 12/24/13 No administration times (back 96 hours, ahead 96 hours). ------heparin (PF) 2 units/ml in NS infusion 2,000 Units #[id number] Admin Amount: 1,000 mL = 2,000 Units of 2 Units/mL Ordered Dose: 1,000 mL Route: Irrigation Freq: ONCE Start Date: 12/24/13 No administration times (b ack 96 hours, ahead 96 hours). ------heparinized saline 2 units/mL infusion 1,000 Units #[id number] Admin Amount: 500 mL = 1,000 Units of 2 Units/mL Ordered Dose: 500 mL R oute: IntraarTERial Freq: ONCE Start Date: 12/24/13 No administration times (back 96 hours, ahead 96 hours). ------0.9% sodium chloride infusion #[id number] Ordered Dose: 75 mL/hr Route: IntraVENous Freq: CONTINUOUS Start Date: 12/24/13 Rate: 75 mL/hr Duration: No administration times (back 96 hours, ahead 96 hours). ------ioversol (OPTIRAY) 320 mg iodine/mL contrast injection 1-100 mL #[id number] Admin Amount: 1-100 mL Ordered Dose: 1-100 mL Route: IntraVENous Freq: RAD ONCE Start Date: 12/24/13 No administration times (back 96 hours, ahead 96 hours).Maxwell Bray MR#: [id number] * Rm: [id number]: 5' 7" Wt: 300 lb Code: Full Code Iso:Diagnosis:Bipolar disorder with severe depression (FORMERLY [facility]) [F31.4]Allergies: No Kn own Allergies -------- Current as of: 10/29/19 1556 ---gadobutrol (GADAVIST) contrast solution 1-10 mL #[id number] Admin Amount: 1-10 mL Ordered Dose: 1-10 mL Route: IntraVENo us Freq: RAD ONCE Start Date: 01/13/14 No administration times (back 96 hours, ahe ad 96 hours). ------sodium chloride (NS) flush 5-10 mL #[id number] Admin Amount: 5-10 mL Ordered Dose: 5-10 mL Route: IntraVENous Freq: RA D ONCE Start Date: 01/13/14 No administration times (back 96 hours, ahead 96 hours). ------sodium chloride (NS) 0.9 % flush #[id number] Ordered Dose: Route: Freq: Start D ate: 01/13/14 No administration times (back 96 hours, ahead 96 hours). ------morphine injection 2 mg #[id number] Admin Amount: 1 mL = 2 mg of 2 mg/mL Ordered Dose: 2 mg Route: Int raVENous Freq: NOW Start Date: 03/13/15 No administration times (back 96 hours, ahe ad 96 hours). ------influenza vaccine (4 yr+)(PF) (FLUCELVAX QUAD) inj ection 0.5*#[id number] Admin Amount: 0.5 mL Ordered Dose: 0.5 mL Route: IntraMUSCular Freq : PRIOR TO DISCHARGE Start Date: 03/30/16 No administration times (back 96 hours, ahead 96 hours). ------oxyCODONE-acetaminophe n (PERCOCET) 5-325 mg per tablet 1 Tab #[id number] Admin Amount: 1 Tab Ordered Dose: 1 Tab Route: Oral Freq: NOW Start Date: 09/07/17 No administration times (back 96 hours, ahead 96 hours). ------barium sulfate (READICAT) 2.1 % (w/v), 2.0 % (w /w) oral suspension 9*#[id number] Admin Amount: 900 mL Ordered Dose: 900 mL Route: Ora l Freq: RAD ONCE Start Date: 10/15/17 No administration times (back 96 hours, e ad 96 hours). ------iopamidol (ISOVUE 300) 61 % contrast injection 100 mL #[id number] Admin Amount: 100 mL Ordered Dose: 100 mL Route: IntraVENous Freq: RAD O NCE Start Date: 10/15/17 No administration times (back 96 hours, ahead 96 hours).Maxwell Bray MR#: [id number] * Rm: [id number]: 5' 7" Wt: 300 lb Cod e: Full Code Iso:Diagnosis:Bipolar disorder with severe depression (HCC) [F31.4]Allergies: No Kn own Allergies -------- Current as of: 10/29/19 1556 ---risperiDONE (RisperDAL m-tabs) disintegrating tablet 1 mg #[id number] Admin Amount: 1 Tab (1 x 1 mg Tab) Ordered Dose: 1 mg [place]: Oral Freq: ONCE Start Date: 12/24/17 No administration times (back 96 hours, e ad 96 hours). ------ALPRAZolam (XANAX) tablet 2 mg #[id number] Admin Amount: 4 Tab (4 x 0.5 mg Tab) Ordered Dose: 2 mg Route: Ora l Freq: NOW Start Date: 12/24/17 No administration times (back 96 hours, e ad 96 hours). ------lamoTRIgine (LaMICtal) tablet 100 mg #[id number] Admin Amount: 1 Tab (1 x 100 mg Tab) Ordered Dose: 100 mg Route: Ora l Freq: ONCE Start Date: 12/24/17 No administration times (back 96 hours, e ad 96 hours). ------OLANZapine (ZyPREXA zydis) disintegrating tablet 5 mg #[id number] Admin Amount: 1 Tab (1 x 5 mg Tab) Ordered Dose: 5 mg Route: Ora l Freq: ONCE Start Date: 12/25/17 No administration times (back 96 hours, e ad 96 hours). ------LORazepam (ATIVAN) tablet 2 mg #[id number] Admin Amount: 4 Tab (4 x 0.5 mg Tab) Ordered Dose: 2 mg Route: Ora l Freq: NOW Start Date: 12/25/17 No administration times (back 96 hours, ahe ad 96 hours). ------LORazepam (ATIVAN) injection 1 mg #[id number] Admin Amount: 0.5 mL = 1 mg of 2 mg/mL Ordered Dose: 1 mg [place]: IntraVENous Freq: NOW Start Date: 12/25/17 No administration times (back 96 hours, ahead 96 hours). ------barium sulfate (EZ PAQUE) 96 % (w/w) contrast suspension 17 6 g #[id number] Admin Amount: 176 g Ordered Dose: 176 g Route: Oral Freq: RAD ONCE Start Date: 08/02/18 No administration times (back 96 hours, ahead 96 hours). ------barium sulfate (EZ PAQUE) 96 % (w/w) contrast suspension 17 6 g #[id number] Admin Amount: 176 g Ordered Dose: 176 g Route: Oral Freq: RAD ONCE Start Date: 08/02/18 No administration times (back 96 hours, ahead 96 hours).Maxwell Bray MR#: [id number] * Rm: [id number]: 5' 7" Wt: 300 lb Code: Full Co de Iso:Diagnosis:Bipolar disorder with severe depression (FORMERLY [facility]) [F31.4]Allergies: No Known Allergies -------- Current as of: 10/29/19 1556 ---aspirin chewable tablet 162 mg #[id number] Admin Amount: 2 Tab (2 x 81 mg Tab) Ordered Dose: 162 mg Route: Ora l Freq: NOW Start Date: 08/10/19 No administration times (back 96 hours, ahe ad 96 hours). ------0.9% sodium chloride infusion 1,000 mL #[id number] Admin Amount: 1,000 mL Ordered Dose: 1,000 mL Route: IntraVENous Freq: O NCE Start Date: 08/16/19 Rate: 1,000 mL/hr Duration: No administratio n times (back 96 hours, ahead 96 hours). ------methylPREDNISolone (PF) (Solu-MEDROL) injection 125 mg #[id number] Admin Amount: 2 mL = 125 mg of 125 mg/2 mL Ordered Dose: 125 mg [place]: IntraVENous Freq: NOW Start Date: 08/16/19 No administration times (back 9 6 hours, ahead 96 hours). ------aspirin chewable tablet 162 mg #[id number] Admin Amount: 2 Tab (2 x 81 mg Tab) Ordered Dose: 162 mg Route: Ora l Freq: NOW Start Date: 08/16/19 No administration times (back 96 hours, e ad 96 hours). ------sodium chloride (NS) flush 5-40 mL #[id number] Admin Amount: 5-40 mL Ordered Dose: 5-40 mL Route: IntraVENous Freq: RONA HERNANDEZY 8 HOURS Start Date: 10/29/19 Administration times (back 96 hours, ahead 96 hours): : 1400 2200 10/30/19: 06 1400 219910/31/19: 599 1400 219911/01/19: 599 1400 219911/02/19: 599 1400 ---sodium chloride (NS) flush 5-40 mL #[id number] Admin Amount: 5-40 mL Ordered Dose: 5-40 mL Route: IntraVENous Freq: NEEDED Start Date: 10/29/19 No administration times (back 96 hours, ahead 96 hours). ------acetaminophen (TYLENOL) tablet 650 mg #[id number] Admin Amount: 2 Tab (2 x 325 mg Tab) Ordered Dose: 650 mg [place]: Oral Freq: EVERY 4 HOURS NEEDED Start Date: 10/29/19 No administration times (back 96 hours, ahe ad 96 hours).Maxwell Bray MR#: [id number] * Rm: [id number]: 5' 7" Wt: 3 00 lb Code: Full Code Iso:Diagnosis:Bipolar disorder with severe depression (HCC) [F31.4]Allergies : No Known Allergies -------- Current as of: 10/29/19 1556 ---enoxaparin (LOVENOX) injection 40 mg #[id number] Admin Amount: 0.4 mL = 40 mg of 40 mg/0.4 mL Ordered Dose: 40 mg Route: SubCUTAneous Freq: EVERY 24 HOURS Start Date: 10/29/19 Administration times (back 96 hours, ahead 96 hours): 10/29/19: 14510/30/19: 145410/31/19: 145411/01/19: 145411/02/19 : 1454 ---0.9% sodium chloride infusion #[id number] Ordered Dose: 100 mL/hr Route: IntraVENous Freq: [...] Supporting Document(s ) ID Date Data Source [id number] 10/29/2019 03:54:13 PM EDT [facility] History & PhysicalBrian Anam Bray is [...] morbidity or mortality cardiac cath at [facility] approx 6-8 months ag o Other [...] DIC 1985 aarthroscopic knee surgery HX ORTHOPAEDIC 1991 broken [...] trast. Sagittal and coronal reconstruction was performed.Utilizing industrial maintenance technician alg orithm the examination was performed to [...] QTC Calculation (Bezet) 446 ms Calculated P [place] 53 degrees Calculat ed R [place] 68 degrees Calculated T [place] 0 degrees Diagnosis Sinus tachycardiaProl onged RI intervalNonspecific intraventricular conduction delayCBC WITH AUTOMATED DIFF [...] lydia: 10/29/19 10:45 AMResult Value Ref Range [place] level <0.20 (L) 0.6 - 1.2 MMOL/L GLUCOSE, POC Collection Time: 10/29/19 11:26 AMResult Value Ref Range Glucose, bedsid e 102 65 - 110 MG/DLAll lab results for the last 24 hours reviewed.Assessment/PlanAc tive Problems: Bipolar disorder with severe depression (HCC) (10/29/2019) possible [place] dvertentoverdoseGeorge MD Corey Name Value Range Interpretation Code Description Data Melani rce(s) Supporting Document(s ) ID Date Data Source [id number] 10/29/2019 03:42:10 PM EDT [facility] TRANSFER - OUT REPORT:Verbal report give n [...] Supporting Document(s ) ID Date Data Source [id number] 10/29/2019 02:28:59 PM EDT [facility] The history is provided by the spouse.10 [...] or mortal ity cardiac cath at [facility] approx 6-8 months ago Other unknown [...] QTC Calculation (Bezet) 446 ms Calculated P [place] 53 degr ees Calculated R [place] 68 degrees Calculated T [place] 0 degrees Diagnosis Sinus tachycar diaProlonged RI intervalNonspecific intraventricular conduction delayCBC WIT H AUTOMATED [...] lydia: 10/29/19 10:45 AMResult Value Ref Range [place] level <0.20 (L) 0.6 - 1.2 MMOL/L GLUCOSE, POC Collection Time: 10/29/19 11:26 AMResult Value Ref Range Glucose, bedsid e 102 65 - 110 MG/DLEKG: Sinus tachycardia at a rate of [address] or T wave fuentes es.Interpreted by Cristobal Ernandez, MDRadiology:CXR RESULTS:CXR Results (Jaimie avalos 48 hours) 10/29/19 1209 XR CHEST PORT [...] Sagittal and coronalreconstru ction was performed. Utilizing industrial maintenance technician algorithm the examinationwas performed t o optimize [...] Supporting Document(s ) ID Date Data Source [id number] 10/29/2019 12:17:28 PM EDT [facility] XR CHEST PORTCLINICAL INDICATION PROVIDE D:. "ams."TECHNIQUE.: [...] Supporting Document(s ) ID Date Data Source [id number] 10/29/2019 11:55:57 AM EDT [facility] CT HEAD WO CONTClinical data: amsPriors: 03/13/2015.Technique: Multiple axial images were obtained from the skullbase to the vertexwithout administration of intravenous contrast. Sagittal and coronalreconstru ction was performed. Utilizing industrial maintenance technician algorithm the examinationwas performed t o optimize [...] Supporting Document(s ) ID Date Data Source [id number] 10/29/2019 11:48:34 AM EDT [facility] Name Value Range Interpretation Description Data Sup porting Code Source(s) Document(s ) Glucose 102 MG/DL 65-110 [facility] [Mass/volume] [facility] in Blood by Hospital Automated test strip ID Date Data Source [id number] 10/29/2019 10:49:56 AM EDT [facility] Patient lethargic, BIBA from home for le thargy and slurred speech. Name Value Range Interpretation Code Description Data Melani rce(s) Supporting Document(s ) ID Date Data Source [id number] 10/29/2019 11:29:33 AM EDT [facility] Name Value Range Interpretation Code Description Data Supporting Source(s) Document(s ) [place] 0.6-1.2 Below low normal [facility] [Moles/volum Mormon e] in Serum Hospital or Plasma ID Date Data Source [id number] 10/29/2019 11:28:52 AM EDT [facility] Name Value Range Interpretation Description Data Sup porting Code Source(s) Document(s ) Sodium 136 136-145 [facility] [Moles/volume] mmol/L [facility] in Serum or Hospital Plasma Potassium 4.4 3.5-5.1 [facility] [Moles/volume] mmol/L [facility] in Serum or Hospital Plasma Chloride 106 98-107 [facility] [Moles/volume] mmol/L [facility] in Serum or Hospital Plasma Carbon 22 21-32 [facility] dioxide, total mmol/L [facility] [Moles/volume] Hospital in Serum or Plasma Anion gap in 12 10-20 [facility] Serum or mmol/L [facility] Plasma Hospital Glucose 108 74-106 Above high normal [facility] [Mass/volume] mg/dL [facility] in Serum or Hospital Plasma Urea nitrogen 16 mg/dL 7-18 [facility] [Mass/volume] [facility] in Serum or Hospital Plasma Creatinine 1.05 0.70-1.3 [facility] [Mass/volume] mg/dL 0 [facility] in Serum or Hospital Plasma Glomerular >60 [facility] filtration [facility] rate/1.73 sq M Hospital predicted among blacks [Volume Rate/Area] in Serum or Plasma by Creatinine-bas ed formula (MDRD) Glomerular >60 [facility] - [facility] filtration [facility] rate/1.73 sq M Hospital predicted among non-blacks [Volume Rate/Area] in Serum or Plasma by Creatinine-bas ed formula (MDRD) (NOTE)Estimated GFR is calculated using the Modification of Diet in RenalDisease (MDRD) Study equation, reported for both Americans(GFRAA) and non- Americans (GFRNA), and normalized to 1.7 3j4hsfi surface area. The physician must decide which [...] 8.5-10.1 [facility] Serum or Plasma [facility] ital Bilirubin.total 0.7 mg/dL 0.2-1.0 [facility] [Mass/volume] in Serum or [facility] Plasma Alanine aminotransferase 30 U/L 13-61 [facility] [Enzymatic activity/volume] [facility] in Serum or Plasma Aspartate aminotransferase 27 U/L 15-37 [facility] HS - Good [Enzymatic activity/volume] [facility] in Serum or Plasma by With P-5'-P Alkaline phosphatase 139 U/L 45-117 Above high [facility] - Good [Enzymatic activity/volume] normal [facility] in Serum or Plasma Protein [Mass/volume] in 7.6 g/dL 6.4-8.2 [facility] - Good Serum or Plasma [facility] ital Albumin [Mass/volume] in 3.9 g/dL 3.5-4.7 [facility] - Good Serum or Plasma by [facility] Bromocresol purple (BCP) dye binding method Globulin [Mass/volume] in 3.7 g/dL 1.7-4.7 [facility] - Good Serum by calculation [facility] Albumin/Globulin [Mass 1.0 0.7-2.8 [facility] - Good Ratio] in Serum or Plasma [facility] ID Date Data Source [id number] 10/29/2019 11:20:29 AM EDT [facility] Name Value Range Interpretation Description Data Sup porting Code Source(s) Document(s ) aPTT in 22.2 SEC 21.0-28. [facility] Platelet poor 0 [facility] plasma by Hospital Coagulation assay Therapeutic Range = 42.0-60.0 secs ID Date Data Source [id number] 10/29/2019 11:20:29 AM EDT [facility] Name Value Range Interpretation Description Data Sup porting Code Source(s) Document(s ) Prothrombin 10.3 sec 9.4-11.1 [facility] - [facility] time (PT) [facility] INR in 1.0 0.8-1.2 [facility] - Good Platelet poor [facility] plasma by Hospital Coagulation assay ID Date Data Source [id number] 10/29/2019 11:11:49 AM EDT [facility] Name Value Range Interpretation Description Data Sup porting Code Source(s) Document(s ) Leukocytes 8.1 K/uL 4.8-10.6 [facility] - [#/volume] in Good Blood by [facility] count [facility] Erythrocytes 5.52 4.70-6.0 [facility] - [#/volume] in M/uL 0 Good Blood by [facility] Hemoglobin 16.7 14.0-18. [facility] - [Mass/volume] in g/dL 0 [facility] Blood [facility] Hematocrit 51.8 % 42.0-52. [facility] - [Volume 0 Good Fraction] of [facility] Blood by Hospital Automated count Erythrocyte mean 93.8 FL 81.0-94. [facility] - corpuscular 0 Good volume [Entitic Mormon volume] by Hospital Automated count Erythrocyte mean 30.3 PG 27.0-35. [facility] - corpuscular 0 Good hemoglobin Mormon [Entitic mass] [facility] by Automated count Erythrocyte mean 32.2 30.7-37. [facility] - corpuscular g/dL 3 Good hemoglobin [facility] [Mass/volume] by Automated count Erythrocyte 13.2 % 11.5-14. [facility] - distribution 0 Good width [Ratio] by [facility] Platelets 193 K/uL 130-400 [facility] - [#/volume] in Good Blood by [facility] Platelet mean 8.6 FL 9.2-11.8 Below low normal [facility] - volume [Entitic Good volume] in Blood [facility] count Nucleated 0.0 PER 0 [facility] - erythrocytes/100 100 WBC Good leukocytes Mormon [Ratio] in Blood Hospital Nucleated 0.00 0.0-0.01 [facility] - erythrocytes K/uL Good [#/volume] in [facility] Segmented 79 % 48.0-72. Above high normal [facility] - neutrophils/100 0 Good leukocytes in [facility] Lymphocytes/100 10 % 18.0-40. Below low normal [facility] - leukocytes in 0 Good Blood [facility] Monocytes/100 8 % 2.0-12.0 [facility] - leukocytes in Good Blood [facility] Eosinophils/100 1 % 0.0-7.0 [facility] - leukocytes in [facility] Basophils/100 0 % 0.0-3.0 [facility] - leukocytes in [facility] Immature 1 % 0-0.5 Above high normal [facility] - granulocytes/100 Good leukocytes in [facility] Automated count Segmented 6.4 K/UL 2.3-7.6 [facility] - neutrophils Good [#/volume] in [facility] Lymphocytes 0.8 K/UL 0.9-4.2 Below low normal [facility] - [#/volume] in [facility] Monocytes 0.7 K/UL 0.1-1.7 [facility] - [#/volume] in [facility] Eosinophils 0.1 K/UL 0.0-1.0 [facility] - [#/volume] in [facility] Basophils 0.0 K/UL 0.0-0.4 [facility] - [#/volume] in [facility] Immature 0.1 K/UL 0.0-0.17 [facility] - granulocytes Good [#/volume] in [facility] Automated count Differential [facility] - cell count [facility] method [facility] ID Date Data Source [id number] 09/15/2019 09:44:01 AM EDT [facility] Clinical Indications/Reason For Exam: pa in.AP, open-mouth [...] Supporting Document(s ) ID Date Data Source [id number] 09/15/2019 09:41:40 AM EDT [facility] THORACIC SPINE 4 views.History: Pain.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 Signing date/time: 09/15/2019 9:41 AMSigned by: CURTIS VARMA Name Value Range Interpretation Code Description Data Melani rce(s) Supporting Document(s ) ID Date Data Source [id number] 09/15/2019 09:40:53 AM EDT [facility] Clinical indications with reason for exa m: [...] Value Range Interpretation Code Description Data [facility] rce(s) Supporting Document(s ) ID Date Data Source [id number] 08/17/2019 08:25:20 AM EST [facility] History: Chest PainTechnique: Portable c hest x-ray [...] Value Range Interpretation Code Description Data [facility] rce(s) Supporting Document(s ) ID Date Data Source [id number] 08/16/2019 11:12:22 PM EST [facility] The history is provided by the patient, [...] orbidity or mortality cardiac cath at [facility] approx 6-8 months ago Other unknown [...] Calculation (Bezet) 429 ms Ca lculated P [place] 36 degrees Calculated R [place] 77 degrees Calculated T [place] -24 degrees Diagnosis Sinus tachycardiaBorderline T abnormalities, [...] Time: 08/16/19 9:00 PMResult Value Ref Range [place] level 0.21 (L) 0.6 - 1.2 MMOL/LEKG: sinus tach ycardia, rate 109Radiology:CXR: no acute findings<EMERGENCY DEPARTMENT CASE [facility]>Impression/Differential Diagnosis: Allergic reaction allergic, drug reactio n,ACS, pulmonary embolismED Course: Patient presents short of breath and mildly tach ycardic complainingof new onset rash to face anterior chest and posterior chest.Plan: Labs, chest x-ray, EKG, troponin, d-dimer, prednisone, Pepcid, [id number]:04 PM patient verbalizes relief of symptoms rash has faded. He denies chestpain he denie s shortness of breath.Patient was advised that we cannot rule out allergic drug re action as he isrecently just restarted taking his lithium. Patient advised to discuss takinglithium with his psychiatrist as soon as possible.Patient reassessed at [facility] e by me. Feels better at present, wants to go home.Patient was told to follow up with the primary doctor in 1-2 days and return [facility] ED for any worsening severe pain, [...] time of disposition: stableI have reviewed the f [facility] medications:Prior to Admission medicationsMedication Sig [...] 08/16/2019 10:46:05 PM EST [facility] [id number] [facility] [address] [facility] [address] [phone]/ Maxwell Bray (Male) [id number] ES I 3 ED Dispo:DISCHARGE Chief Complaint: Allergic Reaction Diagnosis: Allergic reaction, initial encounter [] Allergic reaction to drug, in itial encounter [] Current Providers: Attending: Javier Quezada Nurse Practitioner: Javier Ward Primary Nurse: HARINDER AcuñaN: [id number] [employer] [phone] - [facility] [employer] MrnMRN: [id number] [employer] [phone] - [facility] Age Sex 1970 AGE 49 SEX Male Primary Care Provider: Ritika Canas MD Hmsisdyua: (No Known Allergies)Date Reviewed: 08/16/2019Reviewed by: Zahraa Prince RN - Review CompleteED Provider Notes: No not es of this type exist for this encounter.ED Orders BUPROPION XL 300 MG 24 HR TAB [#[id number]] Priority: Routine Class: Historical Med LITHIUM CARBONATE 150 MG CAP [#[id number]] Priority: Routine Class: Historical Med FAMOTIDINE 20MG + NS 10 ML IV [#[id number]] Priority: STAT Class: Normal H2RA INDICATION -> Adverse reaction/Anaphylaxis SODIUM CH LORIDE 0.9 % IV [#[id number]] Priority: STAT Class: Normal METHYLPREDNISOLONE (PF) 125 MG/2 ML * [#[id number]] Priority: STAT Class: Normal ASPIRIN 81 MG CHEWABLE TAB [# [id number]] Priority: STAT Class: Normal PREDNISONE 50 MG TAB [#[id number]] Bridgette ority: Routine Class: Normal 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 [#[id number]] Priority: STAT C lass: Hospital Performed Standing Order Information Remaining Occurrences:0/1 Interval:Contin uous Last released:08/16/2019 Released orders: Sat Aug 16, 2019 9:02 PM by: Javier POLLOCK Type: -> Bedside [id number] OBTAIN OLD EKG [#[id number]] Priority: Routi ne Class: Hospital Performed Standing Order Information Remaining Occurrences:0/1 Inter haile:ONE TIME Last released:08/16/2019 Released orders: Sat Aug 16, 2019 9:02 PM by: IDNIO WARD [id number] PULSE OXIMETRY CONTINUOUS [#[id number]] Priority: STAT Class: H ospital Performed Standing Order Information Remaining Occurrences:0/1 Interval:CONTIN UOUS Last released:08/16/2019 Released orders: Sat Aug 16, 2019 9:02 PM by: Javier POLLOCK [id number] 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 [#[id number]] Priority: STAT Class: Hospital Perfo rmed Type: -> Bedside Released on: 08/16/2019 9:02 PM [id number] OBTAIN OLD EKG [#[id number]] Priority: STAT Class: Hospital Performed Released on: 08/16/2019 9:02 PM [id number] PULSE OXIMETRY CONTINUOUS [#[id number]] Priority: STAT Class: Hospital Performed Relea sed on: 08/16/2019 9:02 PM [id number] DIET NPO [#[id number]] Priority: STAT Cla ss: Hospital Performed Standing Order Information Remaining Occurrences:0/1 Interval:DIET E FFECTIVE NOW Last released:08/16/2019 Released orders: Sat Aug 16, 2019 9:02 PM by: INDIO WARD NPO options: -> With Meds [id number] DIET NPO [#[id number]] Priority: STAT Class: Hospital Performed NPO options: -> With Meds Released on: 08/16/2019 9:02 PM IVT11 SALINE LOCK IV [#[id number]] Priority: STAT Class: Hospital Performe d Standing Order Information Remaining Occurrences:0/1 Interval:ONE TIME Last released: 08/16/2019 Released orders: Sat Aug 16, 2019 9:02 PM by: INDIO POLLOCK IVT11 SALIN E LOCK IV [#[id number]] Priority: STAT Class: Hospital Performed Released on : 08/16/2019 9:02 PM [id number] METABOLIC PANEL, COMPREHENSIVE [#[id number]] Priority: STAT Class: E R Collect Standing Order Information Remaining Occurrences:0/1 Interval:ONE TIME Last r eleased:08/16/2019 Released orders: [facility] Aug 16, 2019 9:02 PM by: INDIO POLLOCK [id number] CBC WITH AUTOMATED DIFF [#[id number]] Priority: STAT Class: ER Collect Standing Order Info rmation Remaining Occurrences:0/1 Interval:ONE TIME Last released:08/16/2019 Released orders: [facility] Aug 16, 2019 9:02 PM by: INDIO POLLOCK [id number] TROPONIN I [#[id number]] Priority: STAT Class: ER Collect Standing Order Information Remaining Occurre nces:0/1 Interval:ONE TIME Last released:08/16/2019 Released orders: [facility] Aug 16 9:02 PM by: INDIO POLLOCK [id number] MAGNESIUM [#[id number]] Priorit y: STAT Class: ER Collect Standing Order Information Remaining Occurrences:0/1 Inter haile:ONE TIME Last released:08/16/2019 Released orders: [facility] Aug 16, 2019 9:02 PM by: INDIO WARD [id number] D DIMER [#[id number]] Priority: STAT Class: E R Collect Standing Order Information Remaining Occurrences:0/1 Interval:ONE TIME Last r eleased:08/16/2019 Released orders: [facility] Aug 16, 2019 9:02 PM by: INDIO POLLOCK [id number] METABOLIC PANEL, COMPREHENSIVE [#[id number]] Priority: STAT Class: ER Collect Specimen Source: Plas ma Specimen Collected: 08/16/2019 9:00 PM Resulting Agency: [facility] Test ID: MPL Released on: 08/16/2019 9:02 PM [id number] CBC WITH AUTOMATED DIFF [#[id number]] Prior ity: STAT Class: ER Collect Specimen Source: Whole Blood Specimen Collected: 08/16/2019 9:00 PM Resultin g Agency: [facility] Test ID: [id number] Released on: 08/16/2019 9:02 PM [id number] 1 TROPONIN I [#[id number]] Priority: STAT Class: ER Collect Specimen Source : Plasma Specimen Collected: 08/16/2019 9:00 PM Resulting Agency: [facility] Test ID: TROIP Released on: 08/16/2019 9:02 PM [id number] MAGNESIUM [#[id number]] Priority: STAT Class: ER Collect Specimen Source: Plasma Specimen Collected: 08/16/2019 9:00 PM Resultin g Agency: [facility] Test ID: MGPL Released on: 08/16/2019 9:02 PM [id number] 4 D DIMER [#[id number]] Priority: STAT Class: ER Collect Specimen Source : Plasma Specimen Collected: 08/16/2019 9:00 PM Resulting Agency: [facility] Test ID: [id number] Released on: 08/16/2019 9:02 PM [id number] LITHIUM [#[id number]] Priority: STAT Class: ER Collect Standing Order Information Remaining Occurrences:0/1 Inter haile:ONE TIME Last released:08/16/2019 Released orders: Sat Aug 16, 2019 9:02 PM by: INDIO WARD [id number] LITHIUM [#[id number]] Priority: STAT Class: E R Collect Specimen Source: Serum Specimen Collected: 08/16/2019 9:00 PM Resulting Agency: [facility] Test ID: LI Released on: 08/16/2019 9:02 PM [id number] EKG, 12 LEAD, INITIAL [#[id number]] Priority: STAT Class: Hospital Performed Standing Order Information Remainin g Occurrences:0/1 Interval:ONE TIME Last released:08/16/2019 Released orders : Sat Aug 16, 2019 9:02 PM by: INDIO POLLOCK Reason for Exam: -> Chest Pain [id number] EKG, 12 LEAD, INITIAL [#[id number]] Priority: STAT Class: Hospital Performed Resulting Age ncy: [facility] Test ID: [id number] Reason for Exam: -> Chest Pain Released on: 08/16/2019 9:02 PM [id number] XR CHEST PORT [#[id number]] Priority: STAT Class: Hospital Performed Stand ing Order Information Remaining Occurrences:0/1 Interval:ONE TIME Last released:0 08/16/2019 Released orders: Sat Aug 16, 2019 9:02 PM by: INDIO POLLOCK Reason for Exam -> Chest Pain [id number] XR CHEST PORT [#[id number]] Priority: STAT Class: H ospital Performed Resulting Agency: [facility] Test ID: [id number] Reason for Exam -> Chest Pain Rele ased on: 08/16/2019 9:02 Maxwell Corona MR#: [id number] * Rm: [id number] Ht: 5' 10" Wt: 280 lb Code: Prior Iso:Diagnosis:Allergies: No Known Allergies -------- Current as of: 08/16/192245 GI=Given IC=IV Complet ed NB=New Bag --aspirin (ASPIRIN) tablet 325 mg #[id number] Admin Amount: 1 Tab (1 x 325 mg Tab) Ordered Dose: 325 mg Route: Oral Freq: ONCE Start Date: 12/24/13 No administration times (back 96 hours, ahead 96 hours). ------diphenhydrAMINE (BENADRYL) capsule 50 mg #[id number] Admin Amount: 1 Cap (1 x 50 mg Cap) Ordered Dose: 50 mg Route: Ora l Freq: NOW Start Date: 12/24/13 No administration times (back 96 hours, ahe ad 96 hours). ------diazepam (VALIUM) tablet 5 mg #[id number] Admin Amount: 1 Tab (1 x 5 mg Tab) Ordered Dose: 5 mg Route: Oral Freq: ON CE Start Date: 12/24/13 No administration times (back 96 hours, ahead 96 hours). ------lidocaine (XYLOCAINE) 10 mg/mL (1 %) injection 1-30 mL #[id number] Admin Amount: 1-30 mL Ordered Dose: 1-30 mL Route: IntraDERMal Freq: ONCE Start Date: 12/24/13 No administration times (back 96 hours, ahead 96 hours). ------heparin (PF) 2 units/ml in NS infusion 2,000 Units #[id number] Admin Amount: 1,000 mL = 2,000 Units of 2 Units/mL Ordered Dose: 1,000 mL [place]: Irrigation Freq: ONCE Start Date: 12/24/13 No administration times (back 96 hours, ahead 96 hours). ------heparinized saline 2 units/mL infusion 1,000 Units #[id number] Admin Amount: 500 mL = 1,000 Units of 2 Units/mL Ordered Dose: 500 mL [place]: IntraarTERial Freq: ONCE Start Date: 12/24/13 No administration times (back 96 hours, ahead 96 hours). ------0.9% sodium chloride infusion #[id number] Ordered Dose: 75 mL/hr Route: IntraVENous Freq: CONTINUOUS Start Date: 12/24/13 Rate: 75 mL/hr Duration: No administration times (back 96 hours, ahead 96 hours). ------ioversol (OPTIRAY) 320 mg iodine/mL contrast injection 1-100 mL #[id number] Admin Amount: 1-100 mL Ordered Dose: 1-100 mL Route: IntraVENous Freq: RAD O NCE Start Date: 12/24/13 No administration times (back 96 hours, ahead 96 hours).Maxwell Bray MR#: [id number] * Rm: [id number]: 5' 10" Wt: 280 lb Co de: Prior Iso:Diagnosis:Allergies: No Known Allergies -------- Current as of: 08/16/192245 GI=Given IC=IV Complet ed NB=New Bag --gadobutrol (GADAVIST) contrast solution 1-10 mL #[id number] Admin Amount: 1-10 mL Ordered Dose: 1-10 mL Route: IntraVENous Freq: RAD O NCE Start Date: 01/13/14 No administration times (back 96 hours, ahead 96 hours). ------sodium chloride (NS) flush 5-10 mL #[id number] Admin Amount: 5-10 mL Ordered Dose: 5-10 mL Route: IntraVENous Freq: RAD ONCE Start Date: 01/13/14 No administration times (back 96 hours, ahead 96 hours). ------sodium chloride (NS) 0.9 % flush #[id number] Ordered Dose: Route: Freq: Start Date: 01/13 No administration times (back 96 hours, ahead 96 hours). ------morphine injection 2 mg #[id number] Admin Amount: 1 mL = 2 mg of 2 mg/mL Ordered Dose: 2 mg Route: IntraVENous Freq: NOW Start Date: 03/13/15 No administration times (back 96 hours, ahe ad 96 hours). ------influenza vaccine (4 yr+)(PF) (FLUCELVAX QUAD) inj ection 0.5*#[id number] Admin Amount: 0.5 mL Ordered Dose: 0.5 mL Route: IntraMUSCular Freq: PRIOR TO DISCHARGE Start Date: 03/30/16 No administration times (back 96 hours, ahead 96 hours). ------oxyCODONE-acetaminophen (PERCOCET) 5-325 mg per tablet 1 Tab #[id number] Admin Amount: 1 Tab Ordered Dose: 1 Tab Route: Oral Freq: NOW Start Date: 09/07/17 No administration times (back 96 hours, ahead 96 hours). ------barium sulfate (READICAT) 2.1 % (w/v), 2.0 % (w /w) oral suspension 9*#[id number] Admin Amount: 900 mL Ordered Dose: 900 mL Route: Oral Delgado q: RAD ONCE Start Date: 10/15/17 No administration times (back 96 hours, ahead 96 hours). ------iopamidol (ISOVUE 300) 61 % contrast injection 100 mL #[id number] Admin Amount: 100 mL Ordered Dose: 100 mL Route: IntraVENous Freq: RAD ONC E Start Date: 10/15/17 No administration times (back 96 hours, ahead 96 hours).Maxwell Bray MR#: [id number] * Rm: [id number]: 5' 10" Wt: 280 lb Code: Prior Iso:Diagnosis:Allergies: No Known Allergies -------- Current as of: 08/16/192245 GI=Given IC=IV Complet ed NB=New Bag --risperiDONE (RisperDAL m-tabs) disintegrating tablet 1 mg #[id number] Admin Amount: 1 Tab (1 x 1 mg Tab) Ordered Dose: 1 mg Route: Oral Freq: ONCE Start Date: 12/24/17 No administration times (back 96 hours, ahead 96 hours). ------ALPRAZolam (XANAX) tablet 2 mg #[id number] Admin Amount: 4 Tab (4 x 0.5 mg Tab) Ordered Dose: 2 mg Route: Ora l Freq: NOW Start Date: 12/24/17 No administration times (back 96 hours, ahe ad 96 hours). ------lamoTRIgine (LaMICtal) tablet 100 mg #[id number] Admin Amount: 1 Tab (1 x 100 mg Tab) Ordered Dose: 100 mg Route: Oral Delgado q: ONCE Start Date: 12/24/17 No administration times (back 96 hours, ahead 96 hours). ------OLANZapine (ZyPREXA zydis) disintegrating tablet 5 mg #[id number] Admin Amount: 1 Tab (1 x 5 mg Tab) Ordered Dose: 5 mg Route: Oral Delgado q: ONCE Start Date: 12/25/17 No administration times (back 96 hours, ahead 96 hours). ------LORazepam (ATIVAN) tablet 2 mg #[id number] Admin Amount: 4 Tab (4 x 0.5 mg Tab) Ordered Dose: 2 mg Route: Ora l Freq: NOW Start Date: 12/25/17 No administration times (back 96 hours, [facility] ad 96 hours). ------LORazepam (ATIVAN) injection 1 mg #[id number] Admin Amount: 0.5 mL = 1 mg of 2 mg/mL Ordered Dose: 1 mg Route: Int Katherin Freq: NOW Start Date: 12/25/17 No administration times (back 96 hours, e ad 96 hours). ------barium sulfate (EZ PAQUE) 96 % (w/w) contrast suspension 17 6 g #[id number] Admin Amount: 176 g Ordered Dose: 176 g Route: Oral Freq: RAD ONCE Start Date: 08/02/18 No administration times (back 96 hours, ahead 96 hours). ------barium sulfate (EZ PAQUE) 96 % (w/w) contrast s uspension 176 g #[id number] Admin Amount: 176 g Ordered Dose: 176 g Route: Oral Delgado q: RAD ONCE Start Date: 08/02/18 No administration times (back 96 hours, ahead 96 hours).Maxwell Ritter MR#: [id number] * Rm: [id number]: 5' 10" Wt: 280 lb Co de: Prior Iso:Diagnosis:Allergies: No Known Allergies -------- Current as of: 08/16/192245 GI=Given IC=IV Complet ed NB=New Bag --aspirin chewable tablet 162 mg #[id number] Admin Amount: 2 Tab (2 x 81 mg Tab) Ordered Dose: 162 mg Route: Oral Freq: NOW Start Date: 08/10/19 No administration times (back 96 hours, ahead 96 hours). ------famotidine (PF) (PEPCID) 20 mg in 0.9% sodium chloride 10 mL inje cti*#[id number] Admin Amount: 20 mg Ordered Dose: 20 mg Route: IntraVENous Freq: EVERY 12 H OURS Start Date: 08/16/19 Administration times (back 96 hours, ahead 96 hours): 08/16/19: 2119G I 08/17/19: 89908/18/19: 89908/19/19: 89908/20/19: 899 2099 ---0.9% sodium chloride infusion 1,000 mL #[id number] Admin Amount: 1,000 mL Ordered Dose: 1,000 mL Route: IntraVENous Freq: ONC E Start Date: 08/16/19 Rate: 1,000 mL/hr Duration: Administration times (back 96 hours, ahead 96 hours): 08/16/19: 2118NB 2245IC -----methylPREDNISolone (PF) (Solu-MEDROL) injection 125 mg #[id number] Admin Amount: 2 mL = 125 mg of 125 mg/2 mL Ordered Dose: 125 mg Route: Int raVENous Freq: NOW Start Date: 08/16/19 Administration times (back 96 hours, ahe ad 96 hours): 08/16/19: 2118GI -----aspirin chewable tablet 162 mg #[id number] Admin Amount: 2 Tab (2 x 81 [...] mg by mouth three (3) times daily.Dispense Flomot unt:Start Date:End Date:Doc. Provider: Paul Bradford MDpredniSONE [...] DDetails:In 2 daysComments:Contact Info:[phone]-up With:[facility] DEPARTMENTDetails:Comments:As needed, If symptoms worsenContact Info:[address] WoodardSt[address] Luke's University Health Networkrussell [place] [phone] Name Value Range Interpretation Code Description Data Melani rce(s) Supporting Document(s ) ID Date Data Source [id number] 08/16/2019 10:45:45 PM EST [facility] IV site clean/dry/intact, gauze dressing applied. Pt received written and verbaldischarge instructions. Verbalize d understanding of same. Ambulated out of EDwith steady gait and in no distress. Name Value Range Interpretation Code Description Data Melani rce(s) Supporting Document(s ) ID Date Data Source [id number] 08/16/2019 09:58:14 PM EST [facility] Name Value Range Interpretation Description Data Sup porting Code Source(s) Document(s ) [place] 0.21 0.6-1.2 Below low normal [facility] [Moles/volu MMOL/L [facility]] in Hospital Serum or Plasma ID Date Data Source [id number] 08/16/2019 09:52:19 PM EST [facility] Name Value Range Interpretation Code Description Data Melani rce(s) Supporting Document(s ) Fibrin <500 [facility] D-dimer [facility] in Platelet poor plasma (NOTE)Combination of a D-Dimer result wi thin the reference range and a lowclinical pretest probability has good negative pr edictive value fordeep venous thrombosis.If results are utilized for VTE evaluation, <500 ng/ml is consideredto be negative. ID Date Data Source [id number] 08/16/2019 09:44:39 PM [facility] Name Value Range Interpretation Description Data Sup porting Code Source(s) Document(s ) Troponin 0.00-0.05 B[facility] - Good I.cardiac [email or web address] ] in Serum or Plasma (NOTE)The presence [...] to 1.50 ng/mL ID Date Data Source [id number] 08/16/2019 09:44:39 PM EST [facility] Name Value Range Interpretation Description Data Sup porting Code Source(s) Document(s ) Sodium 138 136-145 [facility] [Moles/volume] mmol/L [facility] in Serum or Hospital Plasma Potassium 3.4 3.5-5.1 Below low normal [facility] [Moles/volume] mmol/L [facility] in Serum or Hospital Plasma Chloride 108 98-107 Above high normal [facility] [Moles/volume] mmol/L [facility] in Serum or Hospital Plasma Carbon 20 21-32 Below low normal [facility] dioxide, total mmol/L [facility] [Moles/volume] Hospital in Serum or Plasma Anion gap in 14 10-20 [facility] Serum or mmol/L [facility] Plasma Hospital Glucose 105 74-106 [facility] [Mass/volume] mg/dL [facility] in Serum or Hospital Plasma Urea nitrogen 20 mg/dL 7-18 Above high normal [facility] [Mass/volume] [facility] in Serum or Hospital Plasma Creatinine 0.90 0.70-1.3 [facility] [Mass/volume] mg/dL 0 [facility] in Serum or Hospital Plasma Glomerular >60 [facility] filtration [facility] rate/1.73 sq M Hospital predicted among blacks [Volume Rate/Area] in Serum or Plasma by Creatinine-bas ed formula (MDRD) Glomerular >60 [facility] filtration [facility] rate/1.73 sq M Hospital predicted among non-blacks [Volume Rate/Area] in Serum or Plasma by Creatinine-bas ed formula (MDRD) (NOTE)Estimated GFR is calculated using the Modification of Diet in RenalDisease (MDRD) Study equation, reported for both Americans(GFRAA) and non- Americans (GFRNA), and normalized to 1.7 8f3kqll surface area. The physician must decide which [...] normal [facility] Serum or Plasma [facility] ital Bilirubin.total 0.3 mg/dL 0.2-1.0 [facility] [Mass/volume] in Serum or [facility] Plasma Alanine aminotransferase 37 U/L 13-61 [facility] [Enzymatic activity/volume] [facility] in Serum or Plasma Aspartate aminotransferase 22 U/L 15-37 [facility] HS - Good [Enzymatic activity/volume] [facility] in Serum or Plasma by With P-5'-P Alkaline phosphatase 98 U/L 45-117 [facility] G ood [Enzymatic activity/volume] [facility] in Serum or Plasma Protein [Mass/volume] in 7.0 g/dL 6.4-8.2 [facility] Serum or Plasma [facility] ital Albumin [Mass/volume] in 3.7 g/dL 3.5-4.7 [facility] Serum or Plasma by [facility] o[facility]ital Bromocresol purple (BCP) dye binding method Globulin [Mass/volume] in 3.3 g/dL 1.7-4.7 [facility] Serum by calculation [facility] Albumin/Globulin [Mass 1.1 0.7-2.8 [facility] Ratio] in Serum or Plasma [facility] ID Date Data Source [id number] 08/16/2019 09:44:39 PM EST [facility] Name Value Range Interpretation Description Data Sup porting Code Source(s) Document(s ) Magnesium 2.3 mg/dL 1.6-2.6 [facility] [Mass/volume] [facility] in Serum or Hospital Plasma ID Date Data Source [id number] 08/16/2019 09:23:23 PM EST [facility] Name Value Range Interpretation Description Data Sup porting Code Source(s) Document(s ) Leukocytes 7.6 K/uL 4.8-10.6 [facility] - [#/volume] in Good Blood by [facility] Automated count Hospital Erythrocytes 4.97 4.70-6.0 [facility] - [#/volume] in M/uL 0 Good Blood by [facility] Automated [facility] Hemoglobin 15.2 14.0-18. [facility] - [Mass/volume] in g/dL 0 [facility] Blood [facility] Hematocrit 45.0 % 42.0-52. [facility] - [Volume 0 Good Fraction] of [facility] Blood by Hospital Automated count Erythrocyte mean 90.5 FL 81.0-94. [facility] - corpuscular 0 Good volume [Entitic Mormon volume] by [facility] Automated count Erythrocyte mean 30.6 PG 27.0-35. [facility] - corpuscular 0 Good hemoglobin [facility] [Entitic mass] [facility] by Automated count Erythrocyte mean 33.8 30.7-37. [facility] - corpuscular g/dL 3 Good hemoglobin [facility] [Mass/volume] by Automated count Erythrocyte 13.0 % 11.5-14. [facility] - distribution 0 Good width [Ratio] by [facility] Automated count [facility] Platelets 183 K/uL 130-400 [facility] - [#/volume] in Good Blood by [facility] Automated count [facility] Platelet mean 8.5 FL 9.2-11.8 Below low normal [facility] - volume [Entitic Good volume] in Blood [facility] Hospital count Nucleated 0.0 PER 0 [facility] - erythrocytes/100 100 WBC Good leukocytes [facility] [Ratio] in Blood [facility] Nucleated 0.00 0.0-0.01 [facility] - erythrocytes K/uL Good [#/volume] in [facility] Segmented 68 % 48.0-72. [facility] - neutrophils/100 0 Good leukocytes in [facility] Lymphocytes/100 19 % 18.0-40. [facility] - leukocytes in 0 [facility] Blood [facility] Monocytes/100 7 % 2.0-12.0 [facility] - leukocytes in [facility] Blood [facility] Eosinophils/100 5 % 0.0-7.0 [facility] - leukocytes in [facility] Blood [facility] Basophils/100 1 % 0.0-3.0 [facility] - leukocytes in [facility] Blood [facility] Immature 1 % 0-0.5 Above high normal [facility] - granulocytes/100 Good leukocytes in [facility] Blood by Hospital Automated count Segmented 5.2 K/UL 2.3-7.6 [facility] - neutrophils Good [#/volume] in [facility] Lymphocytes 1.5 K/UL 0.9-4.2 [facility] - [#/volume] in [facility] Monocytes 0.6 K/UL 0.1-1.7 [facility] - [#/volume] in [facility] Eosinophils 0.3 K/UL 0.0-1.0 [facility] - [#/volume] in [facility] Basophils 0.0 K/UL 0.0-0.4 [facility] - [#/volume] in [facility] Immature 0.0 K/UL 0.0-0.17 [facility] - granulocytes Good [#/volume] in [facility] by [facility] Automated count Differential [facility] - cell count Good method [facility] ID Date Data Source [id number] 08/16/2019 08:50:30 PM EST [facility] sudden onset of difficulty breathing and rash while eating leticia food, rashacross face and chest slightly raised, no vesicles, denies any chest pain deniesany itching at this time. Went to [facility], recei nataliia benadryl 50 mg IMfrom EMS. Name Value Range Interpretation Code Description Data [facility] Supporting Document(s ) ID Date Data Source [id number] 08/11/2019 08:03:02 AM EST [facility] History:Chest pain. Shortness of breath. FINDINGS:A single [...] Value Range Interpretation Code Description Data [facility] rce(s) Supporting Document(s ) ID Date Data Source [id number] 08/11/2019 04:22:14 AM EST [facility] The history is provided by the patient [...] morbidity or mortality cardiac cath at [facility] approx 6-8 months ag o Other [...] QTC Calculation (Bezet) 435 ms Calculated P [place] 55 degrees Calculated R [place] 34 degrees Calculated T [place] 9 degrees Diagnosis S inus tachycardiaOtherwise normal [...] Time: 08/11/19 12:01 AMResult Value Ref Range [place] level <0.20 (L) 0.6 - 1.2 MMOL/LLACTIC [...] Zoe Miller Priti V, MD I, Marcy Hira, am serving as a scribe to document [...] 36N*ENCOUNTER 08/11/2019 01:42:54 AM EST [facility] [id number] [facility] [address] [facility] [address] [phone] Maxwell Mitchell Anam (Male) [id number] JOSE 2 ED Dispo:DISCHARGE Chief Complaint: Chest Pain, Shortne ss of Breath Diagnosis: Dyspnea, unspecified type [] Current Providers: Atte nding: Javier Quezada Primary Nurse: ELIS WilsonN: [id number] Print Grou p [phone] - Bshsi [employer] Medva MrnMRN: [id number] Print Group [phone] - Bs hsi Ed Medva Age SexDOB 1970 AGE 49 SEX Male Primary Care Provider: Ritika Canas MD Phone: 1 [phone]: (No Known Allergies)Date Reviewed: 08/10/2019Reviewed by: Chiquis Christianson CompleteED Provider Notes: No notes of this type exist for this encounter.ED Orders [id number] E KG, 12 LEAD, INITIAL [#[id number]] Priority: STAT Class: Hospital Performed Stand ing Order Information Remaining Occurrences:0/1 Interval:ONE TIME Last released:0 08/10/2019 Released orders: Arabella Aug 10, 2019 10:17 PM by: CHIQUIS CHRISTIANSON Reason for Exam: -> CP SOB [id number] EKG, 12 LEAD, INITIAL [#[id number]] Priority: STAT Class: Hospital Performed Specimen Collected: 08/10/2019 10:14 PM Resulting Agency: [facility] Test ID: [id number] Reason for Exam: -> CP SOB Released on: 08/10/2019 10:17 PM [id number] EKG, 12 LE AD, INITIAL [#[id number]] Priority: STAT Class: Hospital Performed Standing Or mariano Information Remaining Occurrences:0/1 Interval:ONE TIME Last released:0 08/10/2019 Released orders: Arabella Aug 10, 2019 11:51 PM by: MAYANK QUEZADA V Reason fo r Exam: -> Chest Pain [id number] EKG, 12 LEAD, INITIAL [#[id number]] Priority: STAT C lass: Hospital Performed Resulting Agency: [facility] Test ID: [id number] Reason for Exam: -> Chest P ain Released on: 08/10/2019 11:51 PM [id number] 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 [#[id number]] Priority: STAT Class: Hospital Performed Standing Order Information Remaining Occurre nces:0/1 Interval:Continuous Last released:08/10/2019 Released orders : Arabella Aug 10, 2019 11:51 PM by: MAYANK QUEZADA V Type: -> Bedside [id number] PULSE OXIMETR Y CONTINUOUS [#[id number]] Priority: STAT Class: Hospital Performed Standing Or mariano Information Remaining Occurrences:0/1 Interval:CONTINUOUS Last released :08/10/2019 Released orders: [place] Aug 10, 2019 11:51 PM by: MAYANK QUEZADA V [id number] PULSE OXIMETRY SPOT CHECK [#[id number]] Priority: STAT Class: Hospital Performe d Standing Order Information Remaining Occurrences:0/1 Interval:ONE TIME Last r eleased:08/10/2019 Released orders: [place] Aug 10, 2019 11:51 PM by: MAYANK QUEZADA V NU [id number] OBTAIN OLD EKG [#[id number]] Priority: Routine Class: Hospital Perfo rmed Standing Order Information Remaining Occurrences:0/1 Interval:ONE TI ME Last released:08/10/2019 Released orders: [place] Aug 10, 2019 11:51 PM by: MAYANK QUEZADA V [id number] 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 [#[id number]] Priority: STAT Class: H ospital Performed Type: -> Bedside Released on: 08/10/2019 11:51 PM [id number] PULSE OXIM ETRY CONTINUOUS [#[id number]] Priority: STAT Class: Hospital Performed Released on : 08/10/2019 11:51 PM [id number] PULSE OXIMETRY SPOT CHECK [#[id number]] Priority: STAT C lass: Hospital Performed Released on: 08/10/2019 11:51 PM [id number] OBTAIN OLD EKG [#[id number]] Priority: STAT Class: Hospital Performed Released on: 08/10/2019 11: 51 PM [id number] RT--OXYGEN CANNULA [#[id number]] Priority: STAT Class: H ospital Performed Standing Order Information Remaining Occurrences:0/1 Interval:CONTIN UOUS Last released:08/10/2019 Released orders: [place] Aug 10, 2019 11:51 PM by: MAYANK PRADO V Comment:TITRATE UP TO 4 L / MINUTE TO MAINTAIN O2 SATS GREATER THAN OR EQUAL TO 94% LPM -> 2 Indications for O2? -> CHEST PAIN [id number] RT--OXYGEN CANNULA [#[id number]] Priority: STAT Class: Hospital Performed Comment:TITRATE UP TO 4 L / MINUTE TO MAINTAIN O2 SATS GREATER THAN OR EQUAL TO 94% LPM -> 2 Indications fo r O2? -> CHEST PAIN Released on: 08/10/2019 11:51 PM [id number] DIET NPO [#[id number]] Priority: STAT Class: Hospital Performed Standing Order Information Remaining Occurrences:0/1 Interval:DIET EFFECTIVE NOW Last released:08/10 Released orders: [place]ese Aug 10, 2019 11:51 PM by: MAYANK QUEZADA V NPO options: - > With Meds [id number] DIET NPO [#[id number]] Priority: STAT Class: H ospital Performed NPO options: -> With Meds Released on: 08/10/2019 11:51 PM [id number] SALINE LOCK IV [#[id number]] Priority: STAT Class: Hospital Performed Standing O rder Information Remaining Occurrences:0/1 Interval:ONE TIME Last released:0 08/10/2019 Released orders: [place]ese Aug 10, 2019 11:51 PM by: MAYANK QUEZADA V [id number] SALI NE LOCK IV [#[id number]] Priority: STAT Class: Hospital Performed Relea sed on: 08/10/2019 11:51 PM [id number] METABOLIC PANEL, COMPREHENSIVE [#[id number]] Bridgette ority: STAT Class: ER Collect Standing Order Information Remaining Occurrences:0/1 In terval:ONE TIME Last released:08/10/2019 Released orders: Saltese Aug 10, 2019 11:51 PM by: MAYANK QUEZADA V [id number] CBC WITH AUTOMATED DIFF [#[id number]] Priority: STAT Class: ER Collect Standing Order Information Remaining Occurrences:0/1 Inter haile:ONE TIME Last released:08/10/2019 Released orders: [place]ese Aug 10, 2019 11:51 PM by: MAYANK QUEZADA V [id number] TROPONIN I [#[id number]] Priority: STAT Class: ER Collect Standing Order Information Remaining Occurrences:0/1 Inter haile:ONE TIME Last released:08/10/2019 Released orders: [place]ese Aug 10, 2019 11:51 PM by: MAYANK QUEZADA V [id number] MAGNESIUM [#[id number]] Priority: STAT Class: ER Collect Standing Order Information Remaining Occurrences:0/1 Inter haile:ONE TIME Last released:08/10/2019 Released orders: [place]ese Aug 10, 2019 11:51 PM by: MAYANK QUEZADA V [id number] BNP [#[id number]] Priority: STAT Class: ER Collect Standing Order Information Remaining Occurrences:0/1 Inter haile:ONE TIME Last released:08/10/2019 Released orders: [place]ese Aug 10, 2019 11:51 PM by: MAYANK QUEZADA V [id number] D DIMER [#[id number]] Priority: STAT Class: ER Collect Standing Order Information Remaining Occurrences:0/1 Inter haile:ONE TIME Last released:08/10/2019 Released orders: [place]ese Aug 10, 2019 11:51 PM by: MAYANK QUEZADA V [id number] PROTHROMBIN TIME + INR [#[id number]] Priority: STAT Class: ER Collect Standing Order Information Remaining Occurrences:0/1 Inter haile:ONE TIME Last released:08/10/2019 Released orders: [place]ese Aug 10, 2019 11:51 PM by: MAYANK QUEZADA V [id number] PTT [#[id number]] Priority: STAT Class: ER Collect Specimen Source: Blood Standing Order Information Remaining Occurrences:0 /1 Interval:ONE TIME Last released:08/10/2019 Released orders: [place]ese Aug 10, 2019 11:51 PM by: MAYANK QUEZADA V [id number] LITHIUM [#[id number]] Pr iority: STAT Class: ER Collect Standing Order Information Remaining Occurrences:0/1 I nterval:ONE TIME Last released:08/10/2019 Released orders: [place]ese Aug 10, 2019 11:51 PM by: MAYANK QUEZADA V [id number] METABOLIC PANEL, COMPREHENSIVE [#[id number]] Bridgette ority: STAT Class: ER Collect Specimen Source: Plasma Specimen Collected: 08/11/2019 12:01 AM Resulting Agency: [facility] Test ID: MPL Released on: 08/10/2019 11:51 PM [id number] CBC WITH AUTOMATED DIFF [#[id number]] Priority: STAT Class: E R Collect Specimen Source: Whole Blood Specimen Collected: 08/11/2019 12:01 AM Resulting Agency: [facility] Test ID: CBCXA Released on: 08/10/2019 11:51 PM [id number] TROPON IN I [#[id number]] Priority: STAT Class: ER Collect Specimen Source: Gerson sma Specimen Collected: 08/11/2019 12:01 AM Resulting Agency: [facility] RY Test ID: TROIP Released on: 08/10/2019 11:51 PM [id number] MAGNESIUM [#[id number]] Priority: STAT Class: ER Collect Specimen Source: Plasma Specimen Collec hyun: 08/11/2019 12:01 AM Resulting Agency: [facility] Test ID: MGPL Re leased on: 08/10/2019 11:51 PM [id number] BNP [#[id number]] Priority : STAT Class: ER Collect Specimen Source: Plasma Specimen Collected: 08/11/2019 12:01 AM Resultin g Agency: [facility] Test ID: BNPPB Released on: 08/10/2019 11:51 PM [id number] D DIMER [#[id number]] Priority: STAT Class: ER Collect Speci men Source: Plasma Specimen Collected: 08/11/2019 12:01 AM Resulting Agency: [facility] Test ID: DDIME Released on: 08/10/2019 11:51 PM [id number] PROTHROMBIN TIME + INR [#[id number]] Priority: STAT Class: ER Collect Specimen Source: Plasma Specimen Collec hyun: 08/11/2019 12:01 AM Resulting Agency: [facility] Test ID: APTHR R eleased on: 08/10/2019 11:51 PM [id number] PTT [#[id number]] Priorit y: STAT Class: ER Collect Specimen Source: Plasma Specimen Collected: 08/11/2019 12:01 AM Resultin g Agency: [facility] Test ID: APTT Released on: 08/10/2019 11:51 PM [id number] LITHIUM [#[id number]] Priority: STAT Class: ER Collect Speci men Source: Serum Specimen Collected: 08/11/2019 12:01 AM Resulting Agency: [facility] Test ID: LI Released on: 08/10/2019 11:51 PM [id number] LACTIC ACID [#[id number]] Priority: STAT Class: ER Collect Standing Order Information Remainin g Occurrences:0/1 Interval:ONE TIME Last released:08/11/2019 Released orders : Mon Aug 11, 2019 12:15 AM by: KATI WILSON [id number] LACTIC ACID [#[id number]] Priority: STAT Class: ER Collect Specimen Source: Plasma Specimen Collec hyun: 08/11/2019 12:01 AM Resulting Agency: [facility] Test ID: LAC Rel eased on: 08/11/2019 12:15 AM ASPIRIN 81 MG CHEWABLE TAB [#[id number]] Priority: STAT Class: Normal [id number] XR CHEST PORT [#[id number]] Priority: STAT Cl ass: Hospital Performed Standing Order Information Remaining Occurrences:0/1 Inter haile:ONE TIME Last released:08/10/2019 Released orders: Sun Aug 10, 2019 11:51 PM by: MAYANK QUEZADA V Reason for Exam -> Chest Pain [id number] XR CHEST PORT [#[id number]] Priority: STAT Class: Hospital Performed Resulting Agency: [facility] Test ID: [id number] Reason for Exam -> Chest Pain Released on: 08/10/2019 11:51 PM [id number] INFLUENZA A & B AG (RAPID TEST) [#[id number]] Priority: STAT Class: ER Collect Sta nding Order Information Remaining Occurrences:0/1 Interval:ONE TIME Last released: 08/10/2019 Released orders: Sun Aug 10, 2019 11:51 PM by: MAYANK QUEZADA V [id number] INFL UENZA A & B AG (RAPID TEST) [#[id number]] Priority: STAT Class: ER Collect Specimen Source : Nasal washing Specimen Collected: 08/11/2019 12:18 AM Resulting Agency: [facility] Test ID: INFLUA Released on: 08/10/2019 11:51 PM [id number] CULTURE, BLOOD [#[id number]] Priority: STAT Class: ER Collect Specimen Source: Blood Standing Order Information Remaining Occurrences:0/1 Interval:ONE TIME Last released:0 08/11/2019 Released orders: SunAug 11, 2019 12:15 AM by: KATI WILSON [id number] CULTU RE, BLOOD [#[id number]] Priority: STAT Class: ER Collect Specimen Source : Blood Standing Order Information Remaining Occurrences:0/1 Interval:ONE TI ME Last released:08/11/2019 Released orders: SunAug 11, 2019 12:15 AM by: KATI WILSON [id number] CULTURE, BLOOD [#[id number]] Priority: STAT Class: E R Collect Specimen Source: Blood Specimen Collected: 08/11/2019 12:33 AM Resulting Agency: [facility] Test ID: HBCS Released on: 08/11/2019 12:15 AM [id number] ALEK SWARTZ [#[id number]] Priority: STAT Class: ER Collect Specimen Source: Calli od Specimen Collected: 08/11/2019 12:43 AM Resulting Agency: [facility] Test ID: HBCS Released on: 08/11/2019 12:15 AMMaxwell Bray MR#: [id number] Acct#: [id number]* Rm: [id number]: 5' 10" Wt: 280 lb Code: Prior Iso:Diagnosis:Allergies: No Kno wn Allergies -------- Current as of: 08/11/19141 GI=Given -------aspirin (ASPIRIN) tablet 325 mg #[id number] Admin Amount: 1 Tab (1 x 325 mg Tab) Ordered Dose: 325 mg Route: Oral Freq: ONCE Start Date: 12/24/13 No administration times (b ack 96 hours, ahead 96 hours). ------diphenhydrAMINE (BENADRYL) capsule 50 mg #[id number] Admin Amount: 1 Cap (1 x 50 mg Cap) Ordered Dose: 50 mg [place]: Oral Freq: NOW Start Date: 12/24/13 No administration times (back 96 hours, ahead 96 hours). ------diazepam (VALIUM) tablet 5 mg #[id number] Admin Amount: 1 Tab (1 x 5 mg Tab) Ordered Dose: 5 mg Route: Oral Freq: ONCE Start Date: 12/24/13 No administration times (back 96 hours, ahead 96 hours). ------lidocaine (XYLOCAINE) 10 mg/mL (1 %) injection 1-3 0 mL #[id number] Admin Amount: 1-30 mL Ordered Dose: 1-30 mL Route: Int raDERMal Freq: ONCE Start Date: 12/24/13 No administration times (back 96 hours, ahead 96 hours). ------heparin (PF) 2 units/ml in NS infusion 2,000 Units #[id number] Admin Amount: 1,000 mL = 2,000 Units of 2 Units/mL Ordered Dose: 1,000 mL Route: Irrigation Freq: ONCE Start Date: 12/24/13 No administration times (back 96 hours, ahead 96 hours). ------heparinized saline 2 units/mL infusion 1,000 Units #[id number] Admin Amount: 500 mL = 1,000 Units of 2 Units/mL Ordered Dose: 500 m L Route: IntraarTERial Freq: ONCE Start Date: 12/24/13 No admini stration times (back 96 hours, ahead 96 hours). ------0.9% sodium chloride infusion #[id number] Ordered Dose: 75 mL/hr Route: IntraVENous Freq: CONTINUOUS Start Date: 12/24/13 Rate: 75 mL/hr Duration: No administration ti mes (back 96 hours, ahead 96 hours). ------ioversol (OPTIRAY) 320 mg iodine/mL contrast inje ction 1-100 mL #[id number] Admin Amount: 1-100 mL Ordered Dose: 1-100 mL [place]: IntraVENous Freq: RAD ONCE Start Date: 12/24/13 No administration times (back 96 hours, ahead 96 hours).Maxwell Bray MR#: [id number] * Rm: [id number] Ht: 5' 10" Wt: 280 lb Code: Prior Iso:Diagnosis:Allergies: No Known Allergies -------- Current as of: 08/11/19 0142 GI=Given -------gadobutrol (GADAVIST) contrast solution 1-10 mL #[id number] Admin Amount: 1-10 mL Ordered Dose: 1-10 mL Route: Int raVENous Freq: RAD ONCE Start Date: 01/13/14 No administration times (back 96 hours, ahead 96 hours). ------sodium chloride (NS) flush 5-10 mL #[id number] Admin Amount: 5-10 mL Ordered Dose: 5-10 mL Route: IntraVENo us Freq: RAD ONCE Start Date: 01/13/14 No administration times (back 96 hours, ahe ad 96 hours). ------sodium chloride (NS) 0.9 % flush #[id number] Ordered Dose: Route: Freq: Start Date: 01/13/14 No administration times (back 96 hours, ahead 96 hours). ------morphine injection 2 mg #[id number] Admin Amount: 1 mL = 2 mg of 2 mg/mL Ordered Dose: 2 mg Route: IntraVENous Freq: NOW Start Date: 03/13/15 No administration t imes (back 96 hours, ahead 96 hours). ------influenza vaccine (4 yr+)(PF) (FLUCELVAX Q UAD) injection 0.5*#[id number] Admin Amount: 0.5 mL Ordered Dose: 0.5 mL Route: Int raMUSCular Freq: PRIOR TO DISCHARGE Start Date: 03/30/16 No administration times (back 9 6 hours, ahead 96 hours). ------oxyCODONE-acetam inophen (PERCOCET) 5-325 mg per tablet 1 Tab #[id number] Admin Amount: 1 Tab Ordered Dose: 1 Tab Route: Oral Freq: NOW Start Date: 09/07/17 No administration times (back 96 hours, ahe ad 96 hours). ------barium sulfate (READICAT) 2.1 % (w/v), 2.0 % (w/w) oral suspension 9*#[id number] Admin Amount: 900 mL Ordered Dose: 900 mL Route: Oral Delgado q: RAD ONCE Start Date: 10/15/17 No administration times (back 96 hours, ahe ad 96 hours). ------iopamidol (ISOVUE 300) 61 % contrast injection 100 mL #[id number] Admin Amount: 100 mL Ordered Dose: 100 mL Route: Int raVENous Freq: RAD ONCE Start Date: 10/15/17 No administration times (back 96 hours, ahead 96 hours).Maxwell Bray MR#: [id number] * Rm: [id number]: 5' 1 0" Wt: 280 lb Code: Prior Iso:Diagnosis:Allergies: No Known Allergies -------- Current as of: 08/11/192 GI=Given -------risperiDONE (RisperDAL m-tabs) disintegrating tablet 1 mg #[id number] Admin Amount: 1 Tab (1 x 1 mg Tab) Ordered Dose: 1 mg Route: Oral Freq: ONCE Start Date: 12/24/17 No administration times (back 96 hours, ahead 96 hours). ------ALPRAZolam (XANAX) tablet 2 mg #[id number] Admin Amount: 4 Tab (4 x 0.5 mg Tab) Ordered Dose: 2 mg Route: Oral Freq: NOW Start Date: 12/24/17 No administration times (back 96 hours, ahead 96 hours). ------lamoTRIgine (LaMICtal) tablet 100 mg #[id number] Admin Amount: 1 Tab (1 x 100 mg Tab) Ordered Dose: 100 mg Route: Oral Freq: ONCE Start Date: 12/24/17 No administration times (back 96 hours, ahead 96 hours). ------OLANZapine (ZyPREXA zydis) disintegrating tablet 5 mg #[id number] Admin Amount: 1 Tab (1 x 5 mg Tab) Ordered Dose: 5 mg Route: Oral Freq: ONCE Start Date: 12/25/17 No administration times (back 96 hours, ahead 96 hours). ------LORazepam (ATIVAN) tablet 2 mg #[id number] Admin Amount: 4 Tab (4 x 0.5 mg Tab) Ordered Dose: 2 mg Route: Oral Freq: NOW Start Date: 12/25/17 No administration times (back 96 hours, ahead 96 hours). ------LORazepam (ATIVAN) injection 1 mg #[id number] Admin Amount: 0.5 mL = 1 mg of 2 mg/mL Ordered Dose: 1 mg Route: IntraVENous Freq: NOW Start Date: 12/25/17 No administration ti mes (back 96 hours, ahead 96 hours). ------barium sulfate (EZ PAQUE) 96 % (w/w) contrast suspensio n 176 g #[id number] Admin Amount: 176 g Ordered Dose: 176 g Route: Oral Delgado q: RAD ONCE Start Date: 08/02/18 No administration times (back 96 hours, [facility] ad 96 hours). ------barium sulfate (EZ PAQUE) 96 % (w/w) contrast suspensio n 176 g #[id number] Admin Amount: 176 g Ordered Dose: 176 g Route: Oral Delgado q: RAD ONCE Start Date: 08/02/18 No administration times (back 96 hours, e ad 96 hours).Maxwell Bray MR#: [id number] * Rm: [id number]: 5' 10" Wt: 280 lb Code: Prior Iso:Diagnosis:Allergies: No Known Allergies -------- Current as of: 08/11/19 0142 GI=Given -------aspirin chewable tablet 162 mg #[id number] Admin Amount: 2 Tab (2 x 81 [...] MD ED Prescriptions None on FileFollow-up InformationFollow-up With:Canas, Ritika, MDDetails:Schedule an appointment as soon as possible for a visit in 1 dayComments:Contact Info:Chino Rodriguez [address] [id number] With:Detail s:Comments:As needed, If symptoms worsenContact Info: Name Value Range Interpretation Code Description Data Melani rce(s) Supporting Document(s ) ID Date Data Source [id number] 08/11/2019 01:40:37 AM EST [facility] I have reviewed discharge instructions w ith the patient and spouse. The patientand spouse verbalized understanding.\\ Name Value Range Interpretation Code Description Data Melani rce(s) Supporting Document(s ) ID Date Data Source [id number] 08/16/2019 06:35:29 AM [facility] Name Value Range Interpretation Description Data Sup porting Code Source(s) Document(s ) Service comment [facility] Bacteria [facility] - Good [facility] ID Date Data Source [id number] 08/16/2019 06:35:28 AM [facility] Name Value Range Interpretation Description Data Sup porting Code Source(s) Document(s ) Service comment [facility] Bacteria BSS - Good identified in [facility] specimen by Culture ID Date Data Source [id number] 08/11/2019 12:56:01 AM EST [facility] Name Value Range Interpretation Description Data Sup porting Code Source(s) Document(s ) Influenza virus NEG [facility] A Ag [Presence] [facility] in [facility] by Immunoassay Influenza virus NEG [facility] B Ag [Presence] [facility] by Immunoassay IMMUNOCHROMATOGRAPHIC MEMBRANE ASSAYResu lt: Negative for Influenza A and BNote: A negative result does not exclude an infl uenza virus infection, including H1N1. If more conclusive testing is desired, foll ow-up confirmatory testing is warranted. Specimen source [Identifier] of Unspecified [facility] specimen ID Date Data Source [id number] 08/11/2019 01:35:58 AM EST [facility] Value Range Interpretation Description Data Sup porting Code Source(s) Document(s ) Prothrombin 9.6 sec 9.4-11.1 BSS - [facility] time (PT) [facility] INR in 0.9 0.8-1.2 [facility] - Good Platelet poor [facility] plasma by Hospital Coagulation assay ID Date Data Source [id number] 08/11/2019 01:35:58 AM EST [facility] Value Range Interpretation Description Data Sup porting Code Source(s) Document(s ) aPTT in 23.1 SEC 21.0-28. [facility] - Good Platelet poor 0 [facility] plasma by Hospital Coagulation assay Therapeutic Range = 42.0-60.0 secs ID Date Data Source [id number] 08/11/2019 01:30:36 AM EST [facility] Value Range Interpretation Description Data Sup porting Code Source(s) Document(s ) Natriuretic 19 pg/mL 0-100 [facility] peptide [facility] [Mass/volume] [facility] in Serum or Plasma ID Date Data Source [id number] 08/11/2019 01:25:10 AM EST [facility] Value Range Interpretation Code Description Data Supporting Source(s) Document(s ) [place] 0.6-1.2 Below low normal [facility] - Good [Moles/volum Mormon e] in Serum Hospital or Plasma ID Date Data Source [id number] 08/11/2019 01:20:56 AM EST [facility] Value Range Interpretation Code Description Data Melani rce(s) Supporting Document(s ) Fibrin <500 BSS - [facility] [Mass/volume] [facility] in Platelet poor plasma (NOTE)Combination of a D-Dimer result wi thin the reference range and a lowclinical pretest probability has good negative pr edictive value fordeep venous thrombosis.If results are utilized for VTE evaluation, <500 ng/ml is consideredto be negative. ID Date Data Source [id number] 08/11/2019 01:09:42 AM EST [facility] Value Range Interpretation Description Data Sup porting Code Source(s) Document(s ) Lactate 1.7 0.4-2.0 [facility] - Good [Moles/volu MMOL/L [facility] mt] in Hospital Serum or Plasma ID Date Data Source [id number] 08/11/2019 01:09:42 AM [facility] Name Value Range Interpretation Description Data Sup porting Code Source(s) Document(s ) Troponin 0.00-0.05 [facility] - Good I.cardiac [facility] [Mass/volume Hospital ] in Serum or Plasma [...] to 1.50 ng/mL ID Date Data Source [id number] 08/11/2019 01:09:42 AM [facility] Interpretation Description Data Sup porting Code Source(s) Document(s ) Sodium 140 136-145 [facility] - Good [Moles/volume] mmol/L [facility] in Serum or Hospital Plasma Potassium 3.9 3.5-5.1 [facility] - Good [Moles/volume] mmol/L [facility] in Serum or Hospital Plasma Chloride 113 98-107 Above high normal [facility] - Good [Moles/volume] mmol/L [facility] in Serum or Hospital Plasma Carbon 21 21-32 [facility] - Good dioxide, total mmol/L [facility] [Moles/volume] Hospital in Serum or Plasma Anion gap in 10 10-20 [facility] - Good Serum or mmol/L [facility] Plasma Hospital Glucose 90 mg/dL 74-106 [facility] - Good [Mass/volume] [facility] in Serum or Hospital Plasma Urea nitrogen 18 mg/dL 7-18 [facility] - Good [Mass/volume] [facility] in Serum or Hospital Plasma Creatinine 0.78 0.70-1.3 [facility] - Good [Mass/volume] mg/dL 0 [facility] in Serum or Hospital Plasma Glomerular >60 [facility] - Good filtration [facility] rate/1.73 sq M Hospital predicted among blacks [Volume Rate/Area] in Serum or Plasma by Creatinine-bas ed formula (MDRD) Glomerular >60 [facility] - Good filtration [facility] rate/1.73 sq M Hospital predicted among non-blacks [Volume Rate/Area] in Serum or Plasma by Creatinine-bas ed formula (MDRD) (NOTE)Estimated GFR is calculated using the Modification of Diet in RenalDisease (MDRD) Study equation, reported for both Americans(GFRAA) and non- Americans (GFRNA), and normalized to 1.7 6k2blaz surface area. The physician must decide which [...] normal [facility] - Good Serum or Plasma [facility] Bilirubin.total 0.5 mg/dL 0.2-1.0 [facility] - Good [Mass/volume] in Serum or [facility] Plasma Alanine aminotransferase 29 U/L 13-61 [facility] - Good [Enzymatic activity/volume] [facility] in Serum or Plasma Aspartate aminotransferase 18 U/L 15-37 [facility] HS - Good [Enzymatic activity/volume] [facility] in Serum or Plasma by With P-5'-P Alkaline phosphatase 98 U/L 45-117 [facility] - G ood [Enzymatic activity/volume] [facility] in Serum or Plasma Protein [Mass/volume] in 6.7 g/dL 6.4-8.2 [facility] - Good Serum or Plasma [facility] Hosp [facility] Albumin [Mass/volume] in 3.4 g/dL 3.5-4.7 Below low normal [facility] - Good Serum or Plasma by [facility] oslydiatal Bromocresol purple (BCP) dye binding method Globulin [Mass/volume] in 3.3 g/dL 1.7-4.7 [facility] - Good Serum by [facility] Albumin/Globulin [Mass 1.1 0.7-2.8 [facility] - Good Ratio] in Serum or Plasma [facility] ID Date Data Source [id number] 08/11/2019 01:09:42 AM EST [facility] Name Value Range Interpretation Description Data Sup porting Code Source(s) Document(s ) Magnesium 2.1 mg/dL 1.6-2.6 [facility] - Good [Mass/volume] [facility] in Serum or Hospital Plasma ID Date Data Source [id number] 08/11/2019 01:01:18 AM EST [facility] Name Value Range Interpretation Description Data Sup porting Code Source(s) Document(s ) Leukocytes 7.7 K/uL 4.8-10.6 [facility] - [#/volume] in Good Blood by Mormon Automated [facility] Erythrocytes 4.93 4.70-6.0 [facility] - [#/volume] in M/uL 0 Good Blood by Mormon Automated [facility] Hemoglobin 14.9 14.0-18. [facility] - [Mass/volume] in g/dL 0 Good Blood [facility] Hematocrit 44.4 % 42.0-52. [facility] - [Volume 0 Good Fraction] of [facility] Blood by [facility] Automated count Erythrocyte mean 90.1 FL 81.0-94. [facility] - corpuscular 0 Good volume [Entitic Mormon volume] by Hospital Automated count Erythrocyte mean 30.2 PG 27.0-35. [facility] - corpuscular 0 Good hemoglobin Mormon [Entitic mass] [facility] by Automated count Erythrocyte mean 33.6 30.7-37. [facility] - corpuscular g/dL 3 Good hemoglobin Mormon concentration [facility] [Mass/volume] by Automated count Erythrocyte 12.5 % 11.5-14. [facility] - distribution 0 Good width [Ratio] by [facility] count [facility] Platelets 189 K/uL 130-400 [facility] - [#/volume] in Good Blood by [facility] Platelet mean 9.0 FL 9.2-11.8 Below low normal [facility] - volume [Entitic Good volume] in Blood Mormon by Automated Hospital count Nucleated 0.0 PER 0 [facility] - erythrocytes/100 100 WBC Good leukocytes [facility] [Ratio] in Blood Hospital Nucleated 0.00 0.0-0.01 [facility] - erythrocytes K/uL Good [#/volume] in [facility] Segmented 59 % 48.0-72. [facility] - neutrophils/100 0 Good leukocytes in [facility] Lymphocytes/100 29 % 18.0-40. [facility] - leukocytes in 0 [facility] Monocytes/100 7 % 2.0-12.0 [facility] - leukocytes in [facility] Eosinophils/100 5 % 0.0-7.0 [facility] - leukocytes in [facility] Basophils/100 1 % 0.0-3.0 [facility] - leukocytes in [facility] Immature 0 % 0-0.5 [facility] - granulocytes/100 Good leukocytes in [facility] Automated count Segmented 4.6 K/UL 2.3-7.6 [facility] - neutrophils Good [#/volume] in [facility] Lymphocytes 2.2 K/UL 0.9-4.2 [facility] - [#/volume] in [facility] Monocytes 0.5 K/UL 0.1-1.7 [facility] - [#/volume] in [facility] Eosinophils 0.4 K/UL 0.0-1.0 [facility] - [#/volume] in [facility] Basophils 0.1 K/UL 0.0-0.4 [facility] - [#/volume] in [facility] Immature 0.0 K/UL 0.0-0.17 [facility] - granulocytes Good [#/volume] in [facility] Automated count Differential [facility] - cell count Good method [facility] Procedure Social History Code Duration Value Status Description Data Source(s ) Alcohol intake 01/08/2020 Current completed Current [place] 12:00:00 AM EDT non-drinker non-drinker of [facility] of alcohol alcohol (finding) System [employer] (finding) Tobacco use and 01/08/2020 Never used completed Never used [facility] exposure 12:00:00 AM EDT [employer] Smoking 01/08/2020 Never smoker completed Never smoker [place] 12:00:00 AM EDT [employer] Alcohol intake 12/25/2019 Current completed Current [place] 12:00:00 AM EDT non-drinker non-drinker of [employer] of alcohol alcohol (finding) [employer] (finding) Tobacco use and 12/25/2019 Never used completed Never used [facility] exposure 12:00:00 AM EDT [employer] Smoking 12/25/2019 Never smoker completed Never smoker [place] 12:00:00 AM EDT [employer] Alcohol intake 12/12/2019 Current completed Current [place] 12:00:00 AM EDT non-drinker non-drinker of [employer] alcohol alcohol (finding) [employer] (finding) Smoking 12/12/2019 Never smoker completed Never smoker [place] 12:00:00 AM EDT [employer] Alcohol intake 12/05/2019 Current completed Current [place] 12:00:00 AM EDT non-drinker non-drinker of [employer] alcohol alcohol (finding) [employer] (finding) Tobacco use and 12/05/2019 Never used completed Never used [facility] exposure 12:00:00 AM EDT [employer] Smoking 12/05/2019 Never smoker completed Never smoker [place] 12:00:00 AM EDT [employer] Alcohol intake 12/01/2019 Current completed Current [place] 12:00:00 AM EDT non-drinker non-drinker of [employer] of alcohol alcohol (finding) [employer] (finding) Smoking 12/01/2019 Never smoker completed Never smoker [place] 12:00:00 AM EDT [employer] Alcohol intake 11/14/2019 Current completed Current [place] 12:00:00 AM EDT non-drinker non-drinker of [employer] of alcohol alcohol (finding) [employer] (finding) Smoking 11/14/2019 Never smoker completed Never smoker [place] 12:00:00 AM EDT [employer] Alcohol intake 11/10/2019 Current completed Current [place] 12:00:00 AM EDT non-drinker non-drinker of [employer] alcohol (finding) [employer] (finding) Smoking 11/10/2019 Never smoker completed Never smoker [place] 12:00:00 AM EDT [employer] Alcohol intake 09/06/2019 Current completed Current [place] 12:00:00 AM EDT non-drinker non-drinker of [employer] alcohol alcohol (finding) [employer] (finding) Smoking 09/06/2019 Never smoker completed Never smoker [place] 12:00:00 AM EDT [employer] Alcohol intake 08/16/2019 Current completed Current [place] 12:00:00 AM EST non-drinker non-drinker of [employer] alcohol (finding) [employer] (finding) Smoking 08/16/2019 Never smoker completed Never smoker [place] 12:00:00 AM EST [employer] Alcohol intake 08/10/2019 Current completed Current [place] 12:00:00 AM EST non-drinker non-drinker of [employer] alcohol alcohol (finding) [employer] (finding) Smoking 08/10/2019 Never smoker completed Never smoker [place] 12:00:00 AM EST [employer] Alcohol intake 07/21/2019 Current completed Current [place] 12:00:00 AM EST non-drinker non-drinker of [employer] alcohol (finding) [employer] (finding) Smoking 07/21/2019 Never smoker completed Never smoker [place] 12:00:00 AM EST [employer] Vital Signs ID Date Data Source UNK Name Value Range Interpretation Code Description Data Source(s) Oxygen saturation 98 % 98 % [facility] in Arterial blood [facility] by Pulse oximetry [facility] [employer] Body mass index 48.95 kg/m2 48.95 kg/m2 [facility] (BMI) [Ratio] [employer] [facility] [employer] Body weight 136.533 kg 136.533 kg [facility] [employer] Body height 167 cm 167 cm [facility] [employer] [facility] Respiratory rate 12 /min 12 /min [place] [facility] [employer] Body temperature 36.56 May 36.56 May [facility] [facility] [employer] Heart rate 102 /min 102 /min [facility] [employer] [facility] [employer] Diastolic blood 60 mm[Hg] 60 mm[Hg] [facility] pressure [employer] Systolic blood 100 mm[Hg] 100 mm[Hg] [place] pressure [employer] Diastolic blood 80 mm[Hg] 80 mm[Hg] [facility] pressure [employer] Systolic blood 122 mm[Hg] 122 mm[Hg] [place] pressure [employer] Respiratory rate 20 /min 20 /min [facility] FNZ [facility] Heart rate 70 /min 70 /min [employer]Now [facility] Diastolic blood 70 mm[Hg] 70 mm[Hg] [facility] pressure [employer] Systolic blood 124 mm[Hg] 124 mm[Hg] [place] pressure [employer] Respiratory rate 18 /min 18 /min [facility]Z [facility] Body temperature 36.56 May 36.56 May [facility] [employer] Heart rate 88 /min 88 /min [employer] Diastolic blood 86 mm[Hg] 86 mm[Hg] [facility] pressure [employer] Systolic blood 110 mm[Hg] 110 mm[Hg] [place] pressure [employer] Oxygen saturation 98 % 98 % [facility] in Arterial blood [employer] by Pulse oximetry System [employer] Body mass index 47.98 kg/m2 47.98 kg/m2 [facility] (BMI) [Ratio] [facility] System [facility] Body weight 133.811 kg 133.811 kg Bon [employer] Body height 167 cm 167 cm [facility] [employer] Respiratory rate 12 /min 12 /min [facility] [employer] Body temperature 36.67 May 36.67 May [facility] [employer] Heart rate 100 /min 100 /min [employer] Diastolic blood 66 mm[Hg] 66 mm[Hg] [facility] pressure [employer] Systolic blood 102 mm[Hg] 102 mm[Hg] [place] pressure [employer] Respiratory rate 20 /min 20 /min [facility] [employer] Inc Heart rate 70 /min 70 /min [facility] Diastolic blood 68 mm[Hg] 68 mm[Hg] [facility] pressure [facility] [facility] Inc Systolic blood 120 mm[Hg] 120 mm[Hg] [place] pressure [employer] Respiratory rate 18 /min 18 /min [facility] [facility] [employer] Heart rate 68 /min 68 /min [facility] [employer] [facility] [employer] Diastolic blood 68 mm[Hg] 68 mm[Hg] [facility] pressure Cheers [facility] Inc Systolic blood 112 mm[Hg] 112 mm[Hg] [place] pressure [employer]ers [employer] Respiratory rate 20 /min 20 /min [facility] [employer]ers [facility] [employer] Body temperature 36.56 May 36.56 May [facility] [employer] Heart rate 92 /min 92 /min [employer] Diastolic blood 70 mm[Hg] 70 mm[Hg] [facility] pressure [facility]ers [facility] Inc Systolic blood 110 mm[Hg] 110 mm[Hg] [place] pressure [employer] [facility] [employer] Respiratory rate 20 /min 20 /min [facility] Heart rate 68 /min 68 /min [employer] System Inc Diastolic blood 72 mm[Hg] 72 mm[Hg] [facility] pressure [employer] Systolic blood 112 mm[Hg] 112 mm[Hg] [place] pressure [employer] Respiratory rate 20 /min 20 /min [facility]ers [facility] Heart rate 82 /min 82 /min [employer] Diastolic blood 66 mm[Hg] 66 mm[Hg] [facility] pressure [facility]ers [facility] Inc Systolic blood 110 mm[Hg] 110 mm[Hg] [place] pressure [employer]ers [facility] [employer] Respiratory rate 14 /min 14 /min [facility] [employer] [employer] Body temperature 36.89 May 36.89 May [facility] [employer] [facility] Heart rate 72 /min 72 /min [employer] Diastolic blood 74 mm[Hg] 74 mm[Hg] [facility] pressure [email or web address] Systolic blood 128 mm[Hg] 128 mm[Hg] [place] pressure [employer] Inc Respiratory rate 20 /min 20 /min [facility] [facility] Heart rate 68 /min 68 /min [facility] Diastolic blood 64 mm[Hg] 64 mm[Hg] [facility] pressure [employer] Inc Systolic blood 108 mm[Hg] 108 mm[Hg] [place] pressure [employer] Inc Respiratory rate 18 /min 18 /min [facility] Heart rate 80 /min 80 /min [facility] [employer] Inc Diastolic blood 70 mm[Hg] 70 mm[Hg] [facility] pressure [employer] Inc Systolic blood 98 mm[Hg] 98 mm[Hg] [place] pressure [employer] Inc Respiratory rate 20 /min 20 /min [facility] FNZ [facility] Body temperature 36.56 May 36.56 May [facility] FNZ [facility] Heart rate 78 /min 78 /min [employer] [facility] Diastolic blood 60 mm[Hg] 60 mm[Hg] [facility] pressure FNZ [facility] Systolic blood 110 mm[Hg] 110 mm[Hg] [place] pressure FNZ [facility] Body mass index 48.95 kg/m2 48.95 kg/m2 [facility] (BMI) [Ratio] [facility] Body weight 136.533 kg 136.533 kg [employer] Inc Respiratory rate 18 /min 18 /min [facility] [employer] [facility] Body temperature 36.56 May 36.56 May [facility]Z [facility] Heart rate 80 /min 80 /min [employer] Inc Diastolic blood 70 mm[Hg] 70 mm[Hg] [facility] pressure [employer] Inc Systolic blood 128 mm[Hg] 128 mm[Hg] [place] pressure [employer] Oxygen saturation 98 % 98 % [facility] in Arterial blood [place] by Pulse oximetry System Inc Body mass index 48.95 kg/m2 48.95 kg/m2 [facility] (BMI) [Ratio] [facility] Inc Body weight 136.533 kg 136.533 kg [employer] Inc Body height 167 cm 167 cm [employer] Inc Respiratory rate 14 /min 14 /min [facility] [employer] Body temperature 36.44 May 36.44 May [facility] [employer] Heart rate 98 /min 98 /min [facility] [employer] Inc Diastolic blood 60 mm[Hg] 60 mm[Hg] [facility] pressure [employer] Inc Systolic blood 110 mm[Hg] 110 mm[Hg] [place] pressure [employer] Oxygen saturation 96 % 96 % [facility] in Arterial blood [facility] by Pulse oximetry System Inc Respiratory rate 18 /min 18 /min [facility] [employer] [facility] Body temperature 36.72 May 36.72 May [facility] [employer] [facility] Heart rate 80 /min 80 /min [facility] Diastolic blood 88 mm[Hg] 88 mm[Hg] [facility] pressure [employer] Systolic blood 128 mm[Hg] 128 mm[Hg] [place] pressure [employer] Body mass index 48.97 kg/m2 48.97 kg/m2 [facility] (BMI) [Ratio] [facility] Body weight 136.578 kg 136.578 kg [employer] Inc Body height 167 cm 167 cm [employer] Inc Oxygen saturation 98 % 98 % [facility] in Arterial blood [place] by Pulse oximetry System Inc Body mass index 48.30 kg/m2 48.30 kg/m2 [facility] (BMI) [Ratio] [facility] Inc Body weight 134.718 kg 134.718 kg [employer] Inc Body height 167 cm 167 cm [employer] Inc Respiratory rate 14 /min 14 /min [facility] Inc Body temperature 37.33 May 37.33 May [facility] [employer] [facility] Heart rate 100 /min 100 /min [employer] Inc Diastolic blood 68 mm[Hg] 68 mm[Hg] [facility] pressure [employer] Inc Systolic blood 118 mm[Hg] 118 mm[Hg] [place] pressure [employer] Oxygen saturation 98 % 98 % [facility] in Arterial blood [facility] by Pulse oximetry System Inc Body mass index 47.49 kg/m2 47.49 kg/m2 [facility] (BMI) [Ratio] [facility] Inc Body weight 132.45 kg 132.45 kg [employer] Inc Body height 167 cm 167 cm [facility] Respiratory rate 12 /min 12 /min [facility] Inc Body temperature 36.44 May 36.44 May [facility] Heart rate 88 /min 88 /min [facility] [employer] Inc Diastolic blood 70 mm[Hg] 70 mm[Hg] [facility] pressure [facility]ers [facility] Inc Systolic blood 102 mm[Hg] 102 mm[Hg] [place] pressure Cheers System Inc Oxygen saturation 92 % 92 % [facility] in Arterial blood [facility] [address] by Pulse oximetry System Inc Body mass index 45.86 kg/m2 45.86 kg/m2 [facility] (BMI) [Ratio] [employer] Body weight 133.811 kg 133.811 kg [employer] Inc Body height 170.8 cm 170.8 cm [employer] Inc Respiratory rate 12 /min 12 /min [facility]ers [facility] Inc Body temperature 36.67 May 36.67 May [facility]ers [facility] Heart rate 88 /min 88 /min [employer] System Inc Diastolic blood 80 mm[Hg] 80 mm[Hg] [facility] pressure [facility]ers System Inc Systolic blood 120 mm[Hg] 120 mm[Hg] [place] pressure Cheers System Inc Oxygen saturation 95 % 95 % [facility] in Arterial blood [facility] [address] by Pulse oximetry System Inc Respiratory rate 18 /min 18 /min [facility] Body temperature 36.44 May 36.44 May [facility] Heart rate 100 /min 100 /min [employer] Inc Diastolic blood 80 mm[Hg] 80 mm[Hg] [facility] pressure [facility]ers [facility] Inc Systolic blood 123 mm[Hg] 123 mm[Hg] [place] pressure Cheers [facility] Inc Body mass index 46.99 kg/m2 46.99 kg/m2 [facility] (BMI) [Ratio] [facility] Inc Body weight 136.079 kg 136.079 kg [facility] [employer] Body height 170.2 cm 170.2 cm [employer] Oxygen saturation 96 % 96 % [facility] in Arterial blood [facility] by Pulse oximetry System Inc Body mass index 45.55 kg/m2 45.55 kg/m2 [facility] (BMI) [Ratio] [facility] Body weight 132.904 kg 132.904 kg [facility] [employer] Body height 170.8 cm 170.8 cm [facility] [employer] [facility] Inc Respiratory rate 14 /min 14 /min [facility]ers [facility] Inc Body temperature 35.89 May 35.89 May [facility] Heart rate 96 /min 96 /min [employer] Inc Diastolic blood 78 mm[Hg] 78 mm[Hg] [facility] pressure [employer] Inc Systolic blood 116 mm[Hg] 116 mm[Hg] [place] pressure [employer]Z Inc Oxygen saturation 92 % 92 % [facility] in Arterial blood [facility] [employer] by Pulse oximetry System Inc Respiratory rate 15 /min 15 /min [facility] [facility] Heart rate 96 /min 96 /min [employer] Inc Diastolic blood 86 mm[Hg] 86 mm[Hg] [facility] pressure [employer] Inc Systolic blood 121 mm[Hg] 121 mm[Hg] [place] pressure [employer]Z Inc Body mass index 40.18 kg/m2 40.18 kg/m2 [facility] (BMI) [Ratio] [facility] Body weight 127.007 kg 127.007 kg [facility] [employer] Body height 177.8 cm 177.8 cm [facility] [employer] Body temperature 36.72 May 36.72 May [facility] [employer] [facility] Inc Body temperature 36.33 May 36.33 May [facility] [employer] Oxygen saturation 96 % 96 % [facility] in Arterial blood [facility] by Pulse oximetry System Inc Respiratory rate 21 /min 21 /min [facility]ers [facility] Heart rate 85 /min 85 /min [facility] [employer] Diastolic blood 88 mm[Hg] 88 mm[Hg] [facility] pressure [facility]ers [facility] Inc Systolic blood 155 mm[Hg] 155 mm[Hg] [place] pressure [employer] Body mass index 40.18 kg/m2 40.18 kg/m2 [facility] (BMI) [Ratio] [facility] Inc Body weight 127.007 kg 127.007 kg [facility] [employer] Body height 177.8 cm 177.8 cm [facility] [employer] Oxygen saturation 98 % 98 % [facility] in Arterial blood [employer] by Pulse oximetry System Inc Body mass index 44.66 kg/m2 44.66 kg/m2 [place] [facility] (BMI) [Ratio] [facility] [employer] [facility] System Inc Body weight 128.368 kg 128.368 kg [facility] [employer] Body height 169.5 cm 169.5 cm [facility] [employer] Respiratory rate 12 /min 12 /min [facility] [employer] Body temperature 36.28 May 36.28 May [facility] [employer] Inc Heart rate 68 /min 68 /min [employer] Inc Diastolic blood 80 mm[Hg] 80 mm[Hg] [facility] pressure [employer] Inc Systolic blood 122 mm[Hg] 122 mm[Hg] [place] pressure FNZ [facility] Patient Treatment Plan of Care Planned Activity Planned Date Details Description Data Source (s) Propranolol Hydrochloride 01/08/2020 [facility] 10 MG Oral Tablet 12:00:00 AM [employer] [facility] Inc Clonazepam 0.5 MG Oral 12/25/2019 [facility] Tablet 12:00:00 AM [employer] Syste m Inc Ibuprofen 200 MG Oral 12/22/2019 [facility] Tablet 12:00:00 AM Ti [employer] Inc olanzapine 5 MG Oral Tablet 12/09/2019 [facility] 09:00:00 AM EDT [employer] Syste m Inc Olmesartan medoxomil 20 MG 12/09/2019 [facility] Oral Tablet 12:00:00 AM [employer]Y [employer] Syste m Inc olanzapine 5 MG Oral Tablet 12/09/2019 [facility] 12:00:00 AM [employer]Ig[employer] Syste m Inc Losartan Potassium 50 MG 12/09/2019 [facility] Oral Tablet 12:00:00 AM EDT [employer] Sy[facility] m Inc Clonazepam 0.5 MG Oral 12/08/2019 [facility] Tablet 12:00:00 AM [employer]IgY [employer] Syste m Inc Risperidone 2 MG Oral 12/04/2019 [facility] Tablet 12:00:00 AM EDT Health Syste m Inc [place] Carbonate 300 MG 11/30/2019 [facility] [...] Bela Release Oral Tablet 12:00:00 AM EDT [facility] Bisacodyl 5 MG Delayed 10/31/2019 [facility] Release Oral Tablet 01:50:17 PM EDT [facility] Acetaminophen 325 MG Oral 10/29/2019 Francisco Javier [facility] Tablet 02:44:40 PM EDT Health [facility] Inc sodium chloride (NS) flush 10/29/2019 [facility] 5-40 mL 11:01:53 AM EDT Health Sy[facility] Inc 24 HR Bupropion 10/17/2019 [facility] Hydrochloride 150 MG 12:00:00 AM EDT [facility] Inc Extended Release Oral Tablet 24 HR Bupropion 10/17/2019 [facility] Hydrochloride 300 MG 12:00:00 AM EDT [employer] System Inc Extended Release Oral Tablet Vraylar 3 mg capsule 09/03/2019 [facility]a 12:00:00 AM EDT Health Syste m Inc Amitriptyline Hydrochloride 08/20/2019 [facility] 150 MG Oral Tablet 12:00:00 AM EST [facility] [place] Carbonate 150 MG 08/16/2019 [facility] Oral Capsule 12:00:00 AM EST Health Sy[facility] Inc Prednisone 50 MG Oral 08/16/2019 [facility] Tablet 12:00:00 AM EST [employer] Inc Cyclobenzaprine 07/21/2019 [facility] hydrochloride 10 MG Oral 12:00:00 AM EST [employer]COM System Inc Tablet Acetaminophen 325 MG / 07/21/2019 [facility] Oxycodone Hydrochloride 5 12:00:00 AM EST [employer] System Inc MG Oral Tablet VRAYLAR 6 mg capsule 07/07/2019 [facility]a 12:00:00 AM EST [facility]COM Syste m Inc valacyclovir 1000 MG Oral 07/17/2018 Francisco Javier n [facility] Bela Tablet 12:00:00 AM EST Health Syste m Inc Clonazepam 2 MG Oral Tablet Bon [facility] cariprazine (Vraylar) 6 mg [facility] 24 HR Bupropion [facility] Hydrochlor[facility] 300 MG [facility] Extended Release Oral Tablet fluoxetine HCl (PROZAC PO) B on [facility] ziprasidone 80 MG Oral [facility]
[2020-04-09] MEDS ORDERED: KETAMINE HCL 200 MG/20 ML VIAL ONE (07:12)
[2020-04-09] MEDS ORDERED: PROPOFOL 20 ML ONE (07:12)
[2020-04-09] MEDS ORDERED: SUCCINYLCHOLINE CHLORIDE 200 MG/10 ML SYRINGE ONE (07:12)
[2020-04-09 08:15] VITALS: BP 115/74
[2020-04-09 08:27] VITALS: PULSE 84; TEMP 98.5
--- NOTE | 2020-04-09 09:17 | HP ---
CHIEF COMPLAINT: Bipolar Depression Type I PCP: Darrel Peters [place] Primary Psychiatrist: Komal Pyle HISTORY OF PRESENT ILLNESS: 50 year-old male with a PMH significant for HTN, obesity, and bipolar disorder Type I. He presents today for ECT treatment. 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 Smoking: never Alcohol: occasional Drugs: no Family history: mother diabetes, heart disease Allergies No Known Drug Allergies Allergy (Verified 04/08/20 07:11) HOME MEDICATIONS: Home Medications Medication Instructions Recorded Amitriptyline HCl [Elavil -] 200 mg PO HS 02/10/20 Clonazepam 0.5 mg PO TID 02/10/20 [place] Carbonate [Eskalith -] 300 mg PO BID 02/10/20 Olmesartan Medoxomil 20 mg PO DAILY 02/10/20 Propranolol HCl 10 mg PO TID 02/10/20 REVIEW OF SYSTEMS CONSTITUTIONAL: Absent: fever, chills, diaphoresis, generalized weakness, malaise, loss of appetite, weight change HEENT: Absent: rhinorrhea, nasal congestion, throat pain, throat swelling, difficulty swallowing, mouth swelling, ear pain, eye pain, visual changes CARDIOVASCULAR: Absent: chest pain, syncope, palpitations, irregular heart rate, lightheadedness, peripheral edema RESPIRATORY: Absent: cough, shortness of breath, dyspnea with exertion, orthopnea, wheezing, stridor, hemoptysis GASTROINTESTINAL: Absent: abdominal pain, abdominal distension, nausea, vomiting, diarrhea, constipation, melena, hematochezia GENITOURINARY: Absent: dysuria, frequency, urgency, hesitancy, hematuria, flank pain, genital pain MUSCULOSKELETAL: Absent: myalgia, arthralgia, joint swelling, back pain, neck pain SKIN: Absent: rash, itching, pallor HEMATOLOGIC/IMMUNOLOGIC: Absent: easy bleeding, easy bruising, lymphadenopathy, frequent infections ENDOCRINE: Absent: unexplained weight gain, unexplained weight loss, heat intolerance, cold intolerance NEUROLOGIC: Absent: headache, focal weakness or paresthesias, dizziness, unsteady gait, seizure, mental status changes, bladder or bowel incontinence PHYSICAL EXAMINATION Vital Signs - 24 hr 04/09/20 04/09/20 04/09/20 06:30 07:35 07:40 Temperature 98.1 F Pulse Rate 85 87 87 Respiratory 18 20 12 Rate Blood Pressure 119/82 131/84 117/64 O2 Sat by Pulse 98 99 100 Oximetry (%) 04/09/20 04/09/20 04/09/20 07:45 07:50 08:00 Temperature 98.1 F Pulse Rate 88 84 81 Respiratory 13 13 18 Rate Blood Pressure 117/69 108/52 L 115/74 O2 Sat by Pulse 100 97 98 Oximetry (%) 04/09/20 08:15 Temperature 98.5 F Pulse Rate 84 Respiratory 18 Rate Blood Pressure 115/74 O2 Sat by Pulse 98 Oximetry (%) GENERAL: Awake, alert, and fully oriented, in no acute distress. HEAD: Normal with no signs of trauma. EYES: Pupils equal, round and reactive to light, sclera anicteric, conjunctiva clear. LUNGS: Breath sounds equal, clear to auscultation bilaterally. No wheezes, and no crackles. No accessory muscle use. HEART: Regular rate and rhythm, normal S1 and S2 ABDOMEN: Soft, nontender, not distended MUSCULOSKELETAL: Normal range of motion at all joints. No bony deformities or tenderness. No CVA tenderness. UPPER EXTREMITIES: 2+ pulses, warm, well-perfused. No cyanosis. No clubbing. No peripheral edema. LOWER EXTREMITIES: 2+ pulses, warm, well-perfused. No calf tenderness. No peripheral edema. NEUROLOGICAL: Cranial nerves II-XII intact. Normal speech. ASSESSMENT/PLAN: 50 year-old male with a PMH significant for HTN, obesity, and bipolar disorder Type I. He presents today for ECT. Cardiac --Hypertension: BP stable on current meds --Revised Cardiac Risk Index for Pre-Operative Risk: 0 points, 0.4% risk of major cardiac event Pulmonary --no pulmonary history Neurological --no neurological or neurosurgical history; no history of trauma Anesthesia --no reported problems with anesthesia ECT is a low risk procedure. The relative benefits of the planned procedure outweigh the relative risks for this patient at this time. Visit type - Emergency Visit Emergency Visit: No - New Patient This patient is new to me today: Yes Date on this admission: 04/09/20 - Critical Care Critical Care patient: No
== END 2020-04-09 09:00 | disposition home or self-care (01) ==
LOC: FECT 06:02
PROVIDERS: ATTEND Psychiatry & Neurology Psychiatry
PROC: GZB4ZZZ Other Electroconvulsive Therapy (ICD-10-PCS; principal; 2020-04-09 08:00)
DX: F32.9 Major depressive disorder, single episode, unspecified (principal)
CPT/HCPCS: 90870; 94760; C9803; U0003

== ENCOUNTER 2020-04-12 06:11 | Day surgery (SDC) | payer OTHER ==
--- OUTSIDE RECORDS SUMMARY | 2020-04-09 11:39 | XMS ---
:1970 Author Organization [facility] Care Team Providers Name Role Phone RITIKA [...] is protected by Article 27-F of the [place] State Public Health law. If you continue you may haveaccess to information: Regarding HIV / AIDS; Provided by facilities licensed or operated by the [facility] Office of Mental Health; or Provided by the [facility] Office for People With Developmental Disabilities. If such information is present, then the following [facility] mandated warning applies: This information has been [...] S ecours Bela PM EDT - 01/12/2020 [facility] 10:23:35 AM EDT Patient discharged. Attender: MARIYA CATHERINE 01/01/2020 12:00:00 AM Bon [facility] Attender: MAURICIO 12/30/2019 12:00:00 AM [facility] Attender: MARIYA CATHERINE 12/29/2019 12:00:00 AM [facility] 12/[facility]2019 04:00:00 PM [facility] 06:48[facility] [facility] PM EDT Patient discharged. OL 12/25/2019 [facility] 11:59:00 PM EDT Attender: MARIYA 12/25/2019 12:00:00 AM [facility] Attender: SUSI LONGO 12/25/2019 12:00:00 AM [facility] Attender: MAURICIO 12/24/2019 12:00:00 AM [facility] Attender: MARIYA 12/22/2019 12:00:00 AM [facility] Attender: SUSI LONGO 12/22/2019 12:00:00 AM [facility] Attender: MAURICIO 12/19/2019 12:00:00 AM [facility] Attender: MARIYA 12/18/2019 12:00:00 AM [facility] Attender: GLADIS FUNEZ 12/18/2019 12:00:00 AM [facility] Attender: SUSI LONGO 12/17/2019 12:00:00 AM [facility] Attender: MAURICIO 12/16/2019 12:00:00 AM Bon [facility] Attender: MARIYA 12/15/2019 12:00:00 AM [facility] Attender: XANDER COLBERT 12/13/2019 12:00:00 AM Bon [facility] Outpatient 12/12/2019 12:00:00 PM Francisco Javier n [facility] EDT - 12/12/2019 [facility] 01:20:23 PM EDT Patient discharged. Attender: ROSSI 12/08/2019 05:55:36 [facility] - 01/02/2020 [facility] 12:00:00 AM EDT System In c Inpatient Admitter: RITIKA 12/05/2019 12:00:00 [facility] AM EDT - 12/08/2019 [facility] 03:44:00 PM EDT General Weakness Patient discharged. Outpatient 12/05/2019 12:00:00 AM EDT [facility] Outpatient 12/01/2019 03:45:00 PM EDT - [facility] 12/01/2019 05:01:16 PM EDT Inc Patient discharged. Outpatient 11/14/2019 01:00:00 PM EDT - [facility] 11/18/2019 11:56:43 AM EDT System Inc Patient discharged. Outpatient 11/10/2019 09:00:00 AM EDT - [facility] 11/10/2019 04:44:05 PM EDT System Inc Patient discharged. Inpatient Admitter: RITIKA CANAS 10/29/2019 12:00:00 AM let hargic [facility] EDT - 11/03/2019 [facility] 04:02:00 PM EDT lethargic Patient discharged. Outpatient 09/15/2019 08:22:58 AM EDT [facility] - 09/15/2019 11:59:00 PM Hospital EDT Outpatient 09/10/2019 04:00:00 PM EDT [facility] Outpatient 09/04/2019 03:15:00 PM EDT [facility] Outpatient 08/19/2019 07:31:00 AM EST [facility] ([facility]) Outpatient 08/18/2019 06:35:00 AM EST [facility] ([facility]) Outpatient 08/17/2019 07:16:00 AM EST [facility]EXTGEN ([facility]) Emergency 08/16/2019 12:00:00 AM EST Shortness of Breath [facility] - 08/16/2019 10:45:00 PM Hospital EST Shortness of Breath Patient discharged. Outpatient 08/11/2019 12:05:00 AM EST [facility] Emergency 08/10/2019 12:00:00 AM EST - Chest P ain [facility] 08/11/2019 01:42:00 AM EST Hospital Chest Pain Patient discharged. Outpatient 07/21/2019 04:15:00 PM EST - [facility] [employer] [facility] 07/22/2019 10:51:43 AM EST System Inc Patient discharged. Immunizations Vaccine Date Status Description Data Source(s) New in 2012. 09/04/2019 completed Influenza Vaccine 09/04/2019 [facility] 12:00:00 AM EDT ([facility]) [facility] Medications Medication Brand Start Product Dose Route Administrative Pharmacy [facility] Indications Reaction Description Data Name [...] 5 mg EDT dose (after [facility] OLANZapine [facility] (ZyPREXA) modification) S ystem tablet 5 mg on Tue Inc 12/09/19 at 0900, Until Discontinued Medication administered onsite Olmesartan olmesartan 12/09/2019 20 Oral completed h ypertension Take 1 Tab by Bon medoxomil (BENICAR) 12:00:00 AM mg paul th daily [facility] 20 MG Oral 20 mg EDT for 30 days. Bela Tablet tablet Indications: [facility] olmesartan high blood Sys tem (BENICAR) pressure Inc 20 mg tablet hypertension Losartan losartan 12/09/2019 50 Oral active hypertension Take 1 Tab by Bon Potassium (COZAAR) 12:00:00 AM mg mout h daily [facility] 50 MG Oral 50 mg EDT for 30 days. Bela Tablet tablet Indications: [facility] losartan high blood Syste m [...] doses, Ch arity clonazePAM mg First dose [facility] (KlonoPIN) (after last Sy stem tablet 0.5 modification) Inc mg on 12/07/19 at 1600, Last dose on Denise 12/11/19 at 0900 Medication administered onsite olanzapine OLANZapine 12/07/2019 2.5 Oral aborted 2.5 mg, Oral, Bon 2.5 MG Oral (ZyPREXA) 02:00:00 PM mg D AILY, [facility] Tablet tablet 2.5 EDT dose on Sun Bela OLANZapine mg 12/07/19 at [facility] (ZyPREXA) 1400, Until Sys tem tablet 2.5 Discontinued I nc mg Medication administered onsite [facility] lithium 12/07/2019 300 Oral active 300 mg , Oral, Bon Carbonate carbonate SR 02:00:00 PM mg 2 TIMES DAILY, [facility] 300 MG (LITHOBID) EDT First dose o n Bela Extended tablet 300 Sun 0 at [facility] Release Oral mg 1400, Until System Tablet Discontinued Inc lithium carbonate SR (LITHOBID) tablet 300 mg Medication administered onsite Losartan losartan 12/07/2019 50 Oral active 50 m g, Oral, Bon Potassium 50 (COZAAR) 01:00:00 PM mg D AILY, [facility] MG Oral tablet 50 EDT dose on Sun Bela Tablet mg 12/07/19 at [facility] losartan 1300, Until Syst em (COZAAR) Discontinued Inc tablet 50 mg Medication administered onsite furosemide 45904-486-82 12/07/2019 20 IntraVENous complete d 20 mg, [...] 12/13/19 at 0900 Medication administered onsite furosemide 03087-999-83 12/06/2019 20 IntraVENous complete d edema 20 [...] il mg Discontinued Medication administered onsite 0.9% 9040-8714-99 12/05/2019 100 IntraVENous aborted 100 mL/hr, at [...] mg tablet Inc Shared psychotic disorder (HCC) [facility] lithium 11/30/2019 aborted Bon Carbonate 300 carbonate [...] (DULCOLAX) 5 Inc mg EC tablet cariprazine 909947 11/01/2019 6 mg Oral active 6 m [...] EDT Firs t dose on [facility] hydrocortisone 11/01/19 at [facility] (HYTONE) 2.5 % 1800, Unti l System ointment Discontinued Inc Medication administered onsite Docusate docusate 10/31/2019 200 Oral active 200 mg, Oral, Bon Sodium 100 sodium 02:00:00 PM mg DAILY , [facility] MG Oral (COLACE) EDT dose on Sun C harity Capsule capsule 200 10/31/19 at [facility] docusate mg 1400, Until Syst [...] 5 mg EDT ONCE, 1 [facility] (HALDOL) dose, [facility] tablet 5 mg Denise System 10/30/19 [facility] at 2100 Medication administered onsite amitriptyline 10/30/2019 150 mg Oral active 1 50 mg, Oral, Bon (ELAVIL) tablet 09:00:00 PM EV AN BEDTIME, [facility] 150 mg EDT First dose on [facility] ity Denise 10/30/19 at [facility] 2100, Until System I nc [...] at 2043, Psychosis, Agitation Medication administered onsite [facility] lithium 10/30/2019 300 Oral active 300 mg , Oral, Bon Carbonate carbonate 12:00:00 PM mg 2 T IMES DAILY, [facility] 300 MG Oral tablet 300 EDT First d ose on Bela Tablet mg Denise 10/30/19 at [facility] lithium 1200, Until Syste m carbonate Discontinued In c tablet 300 mg Medication administered onsite Clonazepam 1 clonazePAM 10/30/2019 1 mg Oral active 1 mg, Oral, 2 Bon MG Oral (KlonoPIN) 12:00:00 PM TIME S DAILY, [facility] Tablet tablet 1 mg EDT First dose on Bela clonazePAM Denise 10/30/19 at [facility] (KlonoPIN) 1200, Until Sy stem tablet 1 mg Discontinued [facility] Medication administered onsite 0.9% 9657-1304-25 10/29/2019 100 IntraVENous aborted 100 mL/hr, at [...] EVERY 24 Bela MG/ML mg HOURS, First [facility] Prefilled dose on Sun Sys tem [...] [facility] (TYLENOL) [facility] mg 1444, Until [facility] Discontinued, Mild Pain, Fever Medication administered onsite sodium 83574-631-51 10/29/2019 mL IntraVENous active 5-40 mL, Bon chloride 02:00:00 PM IntraVENo us, [facility] (NS) flush EDT EVERY 8 Charit y 5-40 mL HOURS, First dose on Wed System 10/29/19 at [facility] 1400, Until Discontinued Medication administered onsite sodium 34554-953-89 10/29/2019 mL IntraVENous active 5-40 mL, Bon [...] XL) 150 mg tablet Vraylar 3 mg 45855-948-17 09/03/2019 6 Oral aborted depre ssion Take [...] EST NOW, 1 Bela chewable tablet dose, [facility] 162 mg 08/16/19 System at 2103 Inc Medication administered onsite famotidine 08/16/2019 20 IntraVENous aborted 20 mg, Bon (PF) (PEPCID) 09:02:00 PM mg Intr aVENous, [facility] 20 mg in 0.9% EST EVERY 12 Ch arity sodium HOURS, [facility] chloride 10 dose on [facility] ystem mL injection 08/16/19 at I nc 2102, Until Discontinued Medication administered onsite methylPREDNISolone 714250 08/16/2019 125 IntraVENous comple hyun 125 mg, Bon (PF) (Solu-MEDROL) 09:02:00 PM mg IntraVENous, [facility] injection 125 mg EST NOW, 1 d ose, Bela 08/16/19 Health at 2102 System Inc Medication administered onsite 0.9% 3723-2262-71 08/16/2019 1000 IntraVENous completed 1,000 mL, at [...] mg tablet for 3 System days. Inc [facility] lithium 08/16/2019 2 Oral active Take 2 [...] back pain due to trauma VRAYLAR 6 39272-880-06 07/07/2019 6 mg Oral aborted Bipolar Take [...] FOR 10 DAYS Herpes zoster cephalicus cariprazine 062064 6 mg Oral aborted Take 6 m g [facility] (Vraylar) 6 mg by mouth C harity capsule daily. Health System Shape Collage ziprasidone 80 MG ziprasidone 80 mg Oral aborted Take 80 mg [facility] Oral Capsule (GEODON) 80 mg by mouth Bela ziprasidone capsule two (2) He alth (GEODON) 80 mg times Syst em Inc capsule daily (with meals). fluoxetine HCl 60 mg Oral aborted Take 6 0 mg [facility] (PROZAC PO) by mouth Moira ity daily. Health System Shape Collage Clonazepam 2 MG clonazePAM 1 mg Oral [...] republican's [place] Inform ation relationship to boland [facility] [id number] [facility] [id number] [facility] HEALTH PLAN [id number] [facility] HMO [id number] [employer] HEALTH PLAN Commerical [id number] [facility] [id number] PLAN [facility] [id number] HEALTH PLAN [facility] [id number] PLAN [facility] [id number] HEALTH PLAN POLO [id number] POLO [id number] [employer] PPO [id number] [facility] PPO [id number] PLAN [place] 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 [id number] COMPENSATION [facility] HEALTH PLAN O [id number] 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 [id number] [facility] [id number] GENERIC [id number] [phone] [facility] [id number] PLAN [facility] GENERIC Commerical [id number] [facility] PPO [id number] PLAN FORMERLY [facility] [id number] PLAN 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 [id number] COMPENSATION [facility] [id number] [facility] HEALTH PLAN PPO [id number] [facility] Problems, Conditions, and Diagnoses Code Display Name Description Problem Type Effective Data Dates Source(s) T88.7XXA Utr-jaei-rplftlq Igv-ptqo-xxsgzvm [id number] 12/05/2019 Francisco Javier n [facility] adverse reaction to adverse reaction to 12:00:0 0 AM Bela medication medication [facility] [employer] T50.905A Adverse drug Adverse drug 73766382 12/05/2019 [place] s reaction, initial reaction, initial 12:00:00 AM [facility] encounter encounter [facility] [employer] G93.40 Encephalopathy acute Encephalopathy acute [id number] 12/04 [facility] 12:00:00 AM Bela [employer] F31.4 Bipolar disorder with Bipolar disorder [id number] 10/29/19 20 [facility] severe depression with severe 12:00:00 AM [facility] depression [employer] E55.9 Vitamin D deficiency Vitamin D deficiency [id number] 09/03 [facility] 12:00:00 AM Bela [employer] F41.8 Mixed anxiety and Mixed anxiety and [id number] 09/04/2019 [facility] depressive disorder depressive disorder 12:00:0 0 AM [facility] E66.01 Morbid obesity Morbid obesity [id number] 07/21/2019 Bon Se cours 12:00:00 AM [facility] Z98.84 Status post gastric Status post gastric [id number] 020 [facility] bypass for obesity bypass for obesity 12:00:00 AM [facility] F32.9 Depressive disorder Depressive disorder [id number] 020 [facility] 12:00:00 AM [facility] F31.9 Bipolar disorder Bipolar disorder [id number] 07/21/2019 Francisco Javier n [facility] 12:00:00 AM [facility] F41.9 Anxiety Anxiety [id number] 07/21/2019 [facility] 12:00:00 AM [facility] G25.2 Other specified forms Other specified Diagnosis 0 [facility] of tremor forms of tremor 03:17:29 PM [facility] F31.4 Bipolar disorder, Bipolar disorder, Diagnosis 12/25/2019 [facility] - Good current episode current episode 04:40:00 PM [facility] depressed, severe, depressed, severe, EDT Hospital without psychotic without psychotic features features F41.9 Anxiety disorder, Anxiety disorder, Diagnosis 12/25/2019 [facility] unspecified unspecified 04:04:24 PM [facility] R25.1 Tremor, unspecified Tremor, unspecified Diagnosis [facility] 04:04:24 PM [facility] Z98.84 Bariatric surgery Bariatric surgery Diagnosis 12/25/2019 [facility] status status 04:04:24 PM [facility] T88.7XXA Unspecified adverse Unspecified adverse Diagnosis [facility] - Good effect of drug or effect of drug or 11:10:37 AM [facility] medicament, initial medicament, initial EDT Hospital encounter encounter G93.40 Encephalopathy, Encephalopathy, Diagnosis 12/05/2019 [facility] - Good unspecified unspecified 11:10:37 AM [facility] Hospital R41.82 Altered mental Altered mental Diagnosis 12/05/2019 [facility] - Good status, unspecified status, unspecified 11:10:3 7 AM [facility] F51.04 Psychophysiologic Psychophysiologic Diagnosis 11/14/2019 [facility] insomnia insomnia 01:22:52 PM [facility] F32.2 Major depressive Major depressive Diagnosis 09/15/2019 [facility] - Good disorder, single disorder, single 08:22:58 AM S amaritan episode, severe episode, severe EDT Hosp ital without psychotic without psychotic features features F41.8 Other specified Other specified Diagnosis 09/04/2019 [facility] anxiety disorders anxiety disorders 03:49:01 PM [facility] F32.2 Major depressive Major depressive Diagnosis 09/04/2019 Francisco Javier n [facility] disorder, single disorder, single 03:49:01 PM C harity episode, severe episode, severe EDT Heal th without psychotic without psychotic System Inc features features Z23 Encounter for Encounter for Diagnosis 09/04/2019 [facility] immunization immunization 03:49:01 PM [facility] T78.40XA Allergy, unspecified, Allergy, Diagnosis 08/16/2019 [facility] initial encounter unspecified, initial 08:39:16 PM [facility] R06.00 Dyspnea, unspecified Dyspnea, unspecified Diagnosis 08/10 [facility] 11:27:27 PM [facility] F31.75 Bipolar disorder, in Bipolar disorder, in Diagnosis 07/21 [facility] partial remission, partial remission, 04:40:28 PM [facility] most recent episode most recent episode [facility] Surgeries/Procedures Procedure Description Date Indications Data Source(s) HC HC Routine 12/25/2019 Bipolar 12/25/2019 Bipolar Francisco Javier n LITHIUM LITHIUM 4:41 PM EDT disorder 04:41:00 PM disorde r [facility] with severe EDT with severe [facility] depression depression He alth (HCC) ([facility]) System Inc Bipolar disorder with severe depression ([facility]) GLUCOSE, POC GLUCOSE, POC Routine 12/08/2019 12/08/2019 Bon 11:35 AM 11:35:00 AM [facility] METABOLIC Routine 12/07/2019 12/07/2019 Bon PANEL, BASIC PANEL, BASIC 4:40 AM EDT 04:40:00 A M [facility] EEG 12-26 HR EEG 12-26 HR Routine 12/06/2019 12/06/2019 Bon W/VIDEO W/VIDEO 10:25 AM 10:25:08 AM [facility] LITHIUM HC LITHIUM Routine 12/06/2019 12/06/2019 Bon 4:25 AM EDT 04:25:00 [facility] LACTIC ACID HC LACTIC ACID STAT 12/05/2019 020 Bon 7:20 PM EDT 07:20:00 PM [facility] EDT [facility] HC AMMONIA HC AMMONIA STAT 12/05/2019 12/05/2019 Bon 7:20 PM EDT 07:20:00 PM [facility] BRAIN WO MRI BRAIN WO STAT 12/05/2019 12/05/2019 Bon CONT CONT 4:50 PM EDT 04:50:12 PM [facility] EEG 12-26 HR EEG 12-26 HR STAT 12/05/2019 12/05/2019 Bon W/VIDEO W/VIDEO 3:19 PM EDT 03:19:24 PM [facility] CULTURE, URINE CULTURE, URINE Routine 12/05/2019 020 Bon 2:45 PM EDT 02:45:00 PM [facility] URINALYSIS W/ URINALYSIS W/ STAT 12/05/2019 0 Bon RFLX RFLX 2:45 PM EDT 02:45:00 PM [facility] MICROSCOPIC [facility]COPIC [facility] BILIRUBIN, BILIRUBIN, Routine 12/05/2019 12/05/2019 Bon CONFIRM CONFIRM 2:45 PM EDT 02:45:00 PM [facility] LACTIC ACID HC LACTIC ACID STAT 12/05/2019 020 Bon 12:40 PM 12:40:00 PM [facility] CULTURE HC CULTURE STAT 12/05/2019 12/05/2019 Bon BLOOD BLOOD 12:38 PM 12:38:00 PM Sec ours EDT EDT [facility] PROTHROMBIN PROTHROMBIN STAT 12/05/2019 12/05/2019 Bon TIME + INR TIME + INR 12:38 PM 12:38:00 PM [facility] EDT [facility] CBC WITH CBC WITH STAT 12/05/2019 12/05/2019 Bon AUTOMATED DIFF AUTOMATED DIFF 12:38 PM 12:38:00 PM [facility] EDT EDT [facility] HC TROPONIN I HC TROPONIN I STAT 12/05/2019 0 Bon QUANT QUANT 12:38 PM 12:38:00 PM Sec ours EDT EDT [facility] METABOLIC METABOLIC STAT 12/05/2019 12/05/2019 Bon PANEL, PANEL, 12:38 PM 12:38:00 PM Sec ours COMPREHENSIVE COMPREHENSIVE EDT EDT [facility] MAGNESIUM MAGNESIUM STAT 12/05/2019 12/05/2019 Bon 12:38 PM 12:38:00 PM Sec ours EDT EDT [facility] HC LITHIUM HC LITHIUM STAT 12/05/2019 12/05/2019 Bon 12:38 PM 12:38:00 PM Sec ours EDT EDT [facility] CT HEAD WO CT HEAD WO STAT 12/05/2019 12/05/2019 Bon CONT CONT 12:30 PM 12:30:54 PM Sec ours EDT EDT [facility] HC CULTURE HC CULTURE STAT 12/05/2019 12/05/2019 Bon BLOOD BLOOD 12:30 PM 12:30:00 PM Sec ours EDT EDT [facility] XR PELV AP XR PELV AP STAT 12/05/2019 12/05/2019 Bon ONLY ONLY 12:14 PM 12:14:58 PM Sec ours EDT EDT [facility] XR CHEST PORT XR CHEST PORT STAT 12/05/2019 0 Bon 12:14 PM 12:14:51 PM Sec ours EDT EDT [facility] RT--OXYGEN RT--OXYGEN STAT 12/05/2019 12/05/2019 Bon CANNULA CANNULA 11:20 AM 11:20:37 AM Sec ours EDT EDT [facility] EEG DIGITAL EEG DIGITAL Routine 12/05/2019 12/05/2019 Bon ANALYSIS ANALYSIS 11:10 AM 11:10:37 AM S [facility] EDT EDT [facility] CBC WITH CBC WITH STAT 10/30/2019 10/30/2019 Bon AUTOMATED DIFF AUTOMATED DIFF 6:40 AM EDT 06:40: 00 AM [facility] EDT [facility] METABOLIC METABOLIC STAT 10/30/2019 10/30/2019 Bon PANEL, BASIC PANEL, BASIC 6:40 AM EDT 06:40:00 A M [facility] EDT [facility] URINALYSIS W/ URINALYSIS W/ STAT 10/29/2019 0 Bon RFLX RFLX 6:34 PM EDT 06:34:00 PM [facility] MICROSCOPIC MICROSCOPIC EDT [facility] XR CHEST PORT XR CHEST PORT STAT 10/29/2019 0 Bon 12:09 PM 12:09:04 PM Sec ours EDT EDT [facility] CT HEAD WO CT HEAD WO STAT 10/29/2019 10/29/2019 Bon CONT CONT 11:47 AM 11:47:42 AM Sec ours EDT EDT [facility] HC GLUCOSE HC GLUCOSE Routine 10/29/2019 10/29/2019 Bon POCT POCT 11:26 AM 11:26:00 AM Sec ours EDT EDT [facility] PROTHROMBIN PROTHROMBIN STAT 10/29/2019 10/29/2019 Bon TIME + INR TIME + INR 10:45 AM 10:45:00 AM [facility] EDT EDT [facility] CBC WITH CBC WITH STAT 10/29/2019 10/29/2019 Bon AUTOMATED DIFF AUTOMATED DIFF 10:45 AM 10:45:00 AM [facility] EDT EDT [facility] HC PARTIAL HC PARTIAL STAT 10/29/2019 10/29/2019 Bon THROMBOPLASTIN THROMBOPLASTIN 10:45 AM 10:45:00 AM [facility] / PTT / PTT EDT EDT [facility] METABOLIC METABOLIC STAT 10/29/2019 10/29/2019 Bon PANEL, PANEL, 10:45 AM 10:45:00 AM Sec ours COMPREHENSIVE COMPREHENSIVE EDT EDT [facility] HC LITHIUM HC LITHIUM STAT 10/29/2019 10/29/2019 Bon 10:45 AM 10:45:00 AM Sec ours EDT EDT [facility] XR SPINE LUMB XR SPINE [...] n [facility] 9:00 PM EST 02:00:00 AM [facility] I nc CBC WITH AUTOMATED CBC WITH STAT 08/16/2019 0 [facility] DIFF AUTOMATED DIFF 9:00 PM EST 02:00:00 AM [facility] I nc TROPONIN I TROPONIN I STAT 08/16/2019 08/17/2019 [facility] 9:00 PM EST 02:00:00 AM [facility] I nc METABOLIC PANEL, METABOLIC PANEL, STAT 08/16/2019 [facility] COMPREHENSIVE COMPREHENSIVE 9:00 PM EST 02:00:00 AM [facility] I nc MAGNESIUM MAGNESIUM STAT 08/16/2019 08/17/2019 [facility] 9:00 PM EST 02:00:00 AM [facility] I nc LITHIUM LITHIUM STAT 08/16/2019 08/17/2019 Francisco Javier n [facility] 9:00 PM EST 02:00:00 AM [facility] I nc INFLUENZA A <td><content ID="[id number]">INFLUENZA A & B 07/26 Bon & B AG AG (RAPID 05:18:00 AM [facility] (RAPID TEST) TEST)</content></td><td>STAT</td><td>08/11/2019 EST [facility] 12:18 AM EST</td><td></td><td><paragraph Health styleCode="header">Results for this procedure are System in the <content Inc styleCode="[id number]">results section</content>.</paragraph></td> PROTHROMBIN TIME + PROTHROMBIN TIME STAT 08/11/2019 0 08/11/2019 [facility] INR + INR 12:01 AM EST 05:01:00 AM [facility] nc D DIMER D DIMER STAT 08/11/2019 08/11/2019 Francisco [facility] 12:01 AM EST 05:01:00 AM [facility] nc CBC WITH AUTOMATED CBC WITH STAT 08/11/2019 0 [facility] DIFF AUTOMATED DIFF 12:01 AM EST 05:01:00 AM [facility] nc PTT PTT STAT 08/11/2019 08/11/2019 [facility] 12:01 AM EST 05:01:00 AM [facility] nc TROPONIN I TROPONIN I STAT 08/11/2019 08/11/2019 [facility] 12:01 AM EST 05:01:00 AM [facility] nc METABOLIC PANEL, METABOLIC PANEL, STAT 08/11/2019 [facility] COMPREHENSIVE COMPREHENSIVE 12:01 AM EST 05:01:0 0 AM [facility] nc MAGNESIUM MAGNESIUM STAT 08/11/2019 08/11/2019 [facility] 12:01 AM EST 05:01:00 AM [facility] nc LITHIUM LITHIUM STAT 08/11/2019 08/11/2019 [facility] 12:01 AM EST 05:01:00 AM [facility] nc LACTIC ACID LACTIC ACID STAT 08/11/2019 08/11/2019 [facility] 12:01 AM EST 05:01:00 AM [facility] nc BNP BNP STAT 08/11/2019 08/11/2019 [facility] 12:01 AM EST 05:01:00 AM [facility] nc RT--OXYGEN CANNULA RT--OXYGEN STAT 08/10/2019 020 [facility] CANNULA 11:51 PM EST 04:51:27 AM [facility] nc EKG, 12 LEAD, EKG, 12 LEAD, STAT 08/10/2019 0 [facility] INITIAL INITIAL 10:14 PM EST 03:14:27 AM [facility] nc Results ID Date Data Source [id number] 04/05/2020 09:40:00 AM EDT [facility] Name Value Range Interpretation Description Data Sup porting Code Source(s) Document(s ) SARS [facility] coronavirus 2 RNA This lab was ordered by [facility] GARY moy [facility] and reported by [facility]. ID Date Data Source [id number] 04/02/2020 09:00:00 AM EDT [facility] Name Value Range Interpretation Description Data Sup porting Code Source(s) Document(s ) SARS [facility] coronavirus 2 RNA This lab was ordered by [facility] GARY moy [facility] and reported by [facility]. ID Date Data Source [id number] 03/29/2020 08:58:00 AM EDT [facility] Name Value Range Interpretation Description Data Sup porting Code Source(s) Document(s ) SARS [facility] coronavirus 2 RNA [facility] and reported by [facility]. ID Date Data Source [id number] 03/25/2020 09:42:00 AM EDT [facility] Name Value Range Interpretation Description Data Sup porting Code Source(s) Document(s ) SARS [facility] coronavirus 2 RNA This lab was ordered by [facility] GARY moy [facility] and reported by [facility]. ID Date Data Source [id number] 03/22/2020 09:00:00 AM EDT [facility] Name Value Range Interpretation Description Data Sup porting Code Source(s) Document(s ) SARS [facility] coronavirus 2 RNA This lab was [facility] [place] cindy [facility] and reported by [facility]. ID Date Data Source [id number] 03/19/2020 10:37:00 AM EDT [facility] Name Value Range Interpretation Description Data Sup porting Code Source(s) Document(s ) SARS [facility] coronavirus 2 RNA This lab was ordered by [facility] and reported by [facility]. ID Date Data Source [id number] 03/15/2020 10:30:00 AM EDT [facility] Name Value Range Interpretation Description Data Sup porting Code Source(s) Document(s ) SARS [facility] coronavirus 2 RNA This lab was ordered by [facility] and reported by [facility]. ID Date Data Source [id number] 03/12/2020 12:00:00 PM EDT [facility] Name Value Range Interpretation Description Data Sup porting Code Source(s) Document(s ) SARS [facility] coronavirus 2 RNA This lab was ordered by [facility] and reported by [facility]. ID Date Data Source [id number] 03/08/2020 10:18:00 AM EDT [facility] Name Value Range Interpretation Description Data Sup porting Code Source(s) Document(s ) SARS [facility] coronavirus 2 RNA This lab was ordered by [facility] and reported by [facility]. ID Date Data Source [id number] 03/04/2020 09:50:00 AM EDT [facility] Name Value Range Interpretation Description Data Sup porting Code Source(s) Document(s ) SARS [facility] coronavirus 2 RNA This lab was ordered by [facility] and reported by [facility]. ID Date Data Source [id number] 03/02/2020 12:15:00 PM EDT [facility] Name Value Range Interpretation Description Data Sup porting Code Source(s) Document(s ) SARS [facility] coronavirus 2 RNA This lab was ordered by [facility] and reported by [facility]. ID Date Data Source [id number] 02/27/2020 09:15:00 AM EDT [facility] Name Value Range Interpretation Description Data Sup porting Code Source(s) Document(s ) SARS [facility] coronavirus 2 RNA This lab was ordered by [facility] and reported by [facility]. ID Date Data Source [id number] 02/23/2020 11:40:00 AM EDT [facility] Name Value Range Interpretation Description Data Sup porting Code Source(s) Document(s ) SARS [facility] coronavirus 2 RNA This lab was ordered by [facility] and reported by [facility]. ID Date Data Source [id number] 02/19/2020 09:56:00 AM EDT [facility] Name Value Range Interpretation Description Data Sup porting Code Source(s) Document(s ) SARS [facility] coronavirus 2 RNA This lab was [facility] and reported by [facility]. ID Date Data Source [id number] 02/16/2020 08:40:00 AM EDT [facility] Name Value Range Interpretation Description Data Sup porting Code Source(s) Document(s ) SARS [facility] coronavirus 2 RNA This lab was ordered by [facility] and reported by [facility]. ID Date Data Source [id number] 02/13/2020 10:05:00 AM EDT [facility] Name Value Range Interpretation Description Data Sup porting Code Source(s) Document(s ) SARS [facility] coronavirus 2 RNA This lab was ordered by [facility] and reported by [facility]. ID Date Data Source [id number] 02/09/2020 10:25:00 AM EDT [facility] Name Value Range Interpretation Description Data Sup porting Code Source(s) Document(s ) SARS [facility] coronavirus 2 RNA This lab was ordered by [facility] and reported by [facility]. ID Date Data Source [id number] 01/25/2020 09:20:00 AM EDT [facility] Name Value Range Interpretation Description Data Sup porting Code Source(s) Document(s ) 2019 Novel [facility] Coronavirus RNA Interpretation Unspecified Specimen Qualitative CATA Probe Detection This lab was ordered by [facility] and reported by [email or web address]. ID Date Data Source [id number] 12/25/2019 05:54:30 PM EDT [facility] Name Value Range Interpretation Description Data Sup porting Code Source(s) Document(s ) Plaza 0.38 0.6-1.[address] [facility] [Moles/volu MMOL/L [facility]] in Hospital Serum or Plasma ID Date Data Source [id number] 12/23/2019 01:50:56 PM EDT [facility] Discharge SummaryPatient: Maxwell Hagen e Sex: male DOA: 12/05/2019Date of : 1970 A ge: 49 y.o. LOS: LOS: 3 daysAdmit Date: 12/05/2019Discharge Date: 12/08/2019 Admission Diagnoses: Encephalopathy acute [G93.40];Znd-shdx-usnsusi adversereactio n to medication [T88.7XXA];Mns-bimx-ddpoufs adverse reaction tomedication [T88.7XXA] Discharge Diagnoses: #1 [...] ICD-10-CM: T50.905AICD -9-CM: E947.9 12/05/2019 - Present Fjt-rslt-iggmgjl adverse reaction to med ication ICD-10-CM: T88.8MMWOQY-3-SJ: 995.20 12/05/2019 - Present Bipolar disorder wit [...] E66.01ICD-9-CM: 278.01 07/19/2018 - Present Spells ICD-10-CM: [id number]-8-AA: IMO00 01 04/08/2016 - Present Seizure disorder [...] Supporting Document(s ) ID Date Data Source [id number] 12/09/2019 02:14:04 PM EDT [facility] referral made. Walker [facility].Faxed to Moriah at [facility] at FAX [phone]. She reports they ne ed to get authfor walker. Have instucted pt to buy own walker IF not authorized.He i s agreeable to buying walker if needs to.Care Management InterventionsPCP Verified by CM: YesTransition of Care Consult (CM Consult): Home HealthBon [employer] Home Car e: YesCurrent Support Network: Own Home, Lives with SpouseThe Patient and/or Prachi ent Police Records Clerk was Provided with a Choice of Providerand Agrees with the Discharge Plan?: YesFreedom of Choice List was Provided with Basic Dialogue that Suppor ts thePatient's Individualized Plan of Care/Goals, Treatment Preferences and Sh aresthe Quality Data Associated with the Providers?: YesVeteran Resource Informat ion Provided?: RefusedDischarge LocationDischarge Placement: Home with [facility] UserEvents(ACCEPTED BY [facility])Pt is discharged , picking him up. reports she has phone number tomake pt a follow up psych appt. [facility] to visit. will buy [...] Name Value Range Interpretation Code Description Data [facility] Supporting Document(s ) ID Date Data Source [id number] 12/08/2019 03:06:17 PM EDT [facility] I have reviewed discharge instructions w ith the patient. The patient verbalizedunderstanding.Discussed with t he patient and all questioned fully answered. He will call me ifany problems arise.If you experience chest pain call [address]. [address] yourself.Patient armband removed a nd shredded. IV removed and discharged home stable. Name Value Range Interpretation Code Description Data [facility] Supporting Document(s ) ID Date Data Source [id number] 12/08/2019 03:02:56 PM EDT [facility] Per your note, pt with acute encephalopa thy and toxic Serum Plaza level.Please specify the type of encephalopathy in yo ur progress notes: Toxic encephalopathy due to lithium Metabolic encephalopathy due to Other cause (please specify) Clinically unable to determine UnknownPLEASE DOCUM ENT ANY ADDITIONAL DIAGNOSES AND/OR SPECIFICITY IN THE PROGRESSNOTES AND/OR DISCHARGE SUMMARY. Name Value Range Interpretation Code Description Data Melani rce(s) Supporting Document(s ) ID Date Data Source [id number] 12/08/2019 02:40:45 PM EDT [facility] Problem: SuicideGoal: *STG: Remains safe in [...] Ru Mosher: Progressing Towards GoalGoal: *LTG: Identifies [facility] Mus[place]ki12/08/2019 1440 by Mosher, KatyOutcome: Resolved/Met12/08/2019 1439 by Ru Mosher: Progressing Towards GoalGoal: *LTG: Develops proact sarah suicide prevention plan12/08/2019 1440 by Basilio Moshercome: Resolved/Met12/08/2019 1439 by Basilio Moshercome: Progressing Towards GoalGoal: Interventions12/08/2019 1440 by Basilio Moshercome: Resolved/Met12/08/2019 1439 by Glenys Mosher Outcome: Progressing Towards GoalProblem: Patient Education: Go to Patient Educati on ActivityGoal: Patient/Family Education12/08/2019 1440 by Basilio Mosher come: Resolved/Met12/08/2019 1439 by uR Mosher: Progressing Towards GoalPro blem: Falls - Risk ofGoal: *Absence of FallsDescription: Document Carmen Fall R isk and appropriate interventions in [facility].12/08/2019 1440 by Divya Mosherome: Resolved/MetNote: Fall [...] Scale and appropriate interventions in [facility].12/08/2019 1440 by Ru Mosher: Resolved/MetNote: Pressure [...] Supporting Document(s ) ID Date Data Source [id number] 12/08/2019 02:40:17 PM EDT [facility] Problem: SuicideGoal: *STG: Remains safe in [...] Document Harsh Scale and appropriate interventions in [facility].Outcome: P rogressing Towards GoalNote: Pressure Injury [...] Supporting Document(s ) ID Date Data Source [id number] 12/08/2019 01:18:54 PM EDT [facility] General Daily Progress NoteAdmit Date: Hospital day: .tdSubjective:Psycgm Neuro,and PT assessments reviewed. Patie nt qualifies for discharge. Wifecalled, will bring in clothes. New medical regimen di scussed with the . [place] Plaza level later this week.Current Facility-Adminis tered MedicationsMedication [...] past 8 hrs: BP Temp Pulse Resp GtE25412/07 0816 - - - - 96 %12/08/19 [...] initial encounter (12/05/2019)Active Problems: Encephalopathy acute (12/05/2019) Tiz-wkev-risqhpd adve rse reaction to medication (12/05/2019)Plan: day of discharge. Name Value Range Interpretation Code Description Data Melani rce(s) Supporting Document(s ) ID Date Data Source [id number] 12/08/2019 12:09:30 PM EDT [facility] Problem: Mobility Impaired (Adult and Pe [...] y.o. male)Date: 12/08/2019Primary Diagnosis: E ncephalopathy acute [G93.40]Wcf-xajf-ygemzee adverse reaction to medication [T88.7XXA ]Ldh-bskh-dyefcrq adverse reaction to medication [T88.7XXA]Precautions: Fall ASSESSMENT [...] morbidi ty or mortality cardiac cath at [facility] approx 6-8 months ago Other [...] NoneCritical Beh avior:Neurologic State: AlertOrientation Level: Oriented J1Pblobftbv: Appropriate for age attention/concentration;Follows commandsSafety/Judgement: Decreased awar [...] Supporting Document(s ) ID Date Data Source [id number] 12/08/2019 11:48:26 AM EDT [facility] Name Value Range Interpretation Description Data Sup porting Code Source(s) Document(s ) Glucose 132 MG/DL 65-110 Above high normal [facility] [Mass/volume] [facility] Automated test strip ID Date Data Source [id number] 12/08/2019 10:35:45 AM EDT [facility] S/O Patient has shown improvement. He re ports that medications are helping him.He denies any side effectsHe denies any eccilia cidal thoughtsHe reports that he [facility] a [facility] 300 mg bid Plaza level in two days Will increase Zyprexa 5 mg Will follow up as requested Name Value Range Interpretation Code Description Data Melani rce(s) Supporting Document(s ) ID Date Data Source [id number] 12/08/2019 07:28:52 AM EDT [facility] Bedside and Verbal shift change report cristi Hurley RN (oncoming nurse) Annalise DE LEON RN (offgoing nurse). Repor t included the followinginformation SBAR, Kardex, MAR and Recent Results. Name Value Range Interpretation Code Description Data Melani rce(s) Supporting Document(s ) ID Date Data Source [id number] 12/07/2019 08:26:02 PM EDT [facility] Problem: Falls - Risk ofGoal: *Absence [...] Name Value Range Interpretation Code Description Data [facility] rce(s) Supporting Document(s ) ID Date Data Source [id number] 12/07/2019 07:05:28 PM EDT [facility] Verbal shift change report given to Chandrakant Cox RN (oncoming nurse) by Steven Villalobos RN (offgoing nurse). Report inc luded the following information SBAR, Kardex,Intake/Output, MAR, Recent Result s and Cardiac Rhythm on telemetry. Name Value Range Interpretation Code Description Data Melani rce(s) Supporting Document(s ) ID Date Data Source [id number] 12/07/2019 01:30:56 PM EDT [facility] Trent Jacob MD[address] [place] [address] [id number] Progress NotePatient: Maxwell Bray Sex: male [...] (LOVENOX) injection 40 mg 40 mg SubCUTAneous F95VVklevbanc:Visit VitalsBP 153/85 (BP 1 Location: Left arm, BP Prachi ent Position: At rest)Pulse 96Temp 98.7 F (37.1 C)Resp 20Ht 5' 5.75" (1.67 m)Wt 3 01 lb 1.6 oz (136.6 kg)SpO2 96%BMI 48.97 kg/m Body mass index is 48.97 kg/m .Patient V itals for the past 24 hrs: Temp Pulse Resp BP EwA719 1249 - 96 - 153/85 - 0 [...] time notated as "note time" in [facility]. (It is not time stamped separately in [...] shoulder M79.2 Seizure disorder (HCC) G40.909 Spells [id number] Severe obesity (HCC) E66.01 Depression F32.9 Anxiety F41.9 Bipolar disorder (HCC) F31.9 Depressive disorder F32.9 Status post g astric bypass for obesity Z98.84 Morbid obesity (HCC) E66.01 Mixed anxiety and depressive disorder F41.8 Vitamin D deficiency E55.9 Bipolar disorder with severe depression (HCC) F31.4 Encephalopathy acute G93.40 Adverse drug reaction, ini tial encounter T50.905A Lnv-darj-iirjypk adverse reaction to medication T88.7XXA 49 year [...] Supporting Document(s ) ID Date Data Source [id number] 12/07/2019 01:02:36 PM EDT [facility] - [facility] Pt seen and discussed with Dr Canas .Pt is tearful flat and denies any suicidal thoughts , has been depressed withlithiu m on hold , No Vraylar and he is unable to get his ECT at [facility] And no w will be with [facility] with Dr Womack his lithium level is un therape utic range I will start on lithium , add 2.5mg of zyprexa and lower his klonopin And increase his elavil to 200 mg HSWill get pt followed up with Psychiatry Name Value Range Interpretation Code Description Data Melani rce(s) Supporting Document(s ) ID Date Data Source [id number] 12/07/2019 12:52:32 PM EDT [facility] Problem: Fluid Volume - Risk of, Imbalan cedGoal: *Balanced intake and outputOutcome: Progressing Towards GoalProblem: Patient Education: Go to Patient Education ActivityGoal: Patient/Family EducationOu tcome: Progressing Towards Goal Name Value Range Interpretation Code Description Data Melani rce(s) Supporting Document(s ) ID Date Data Source [id number] 12/07/2019 12:45:20 PM EDT [facility] Problem: Falls - Risk ofGoal: *Absence [...] Supporting Document(s ) ID Date Data Source [id number] 12/07/2019 12:24:47 PM EDT [facility] General Daily Progress NoteAdmit Date: [...] injection 40 mg 40 mg SubCUTA neous K19RGpdkfblyg:Patient Vitals for the past 8 hrs: BP Temp Pulse Resp VsQ44612/06 0956 147/86 98.7 F (37.1 C) 95 [...] initial encounter (12/05/2019)Active Problems: Encephalopathy acute (12/05/2019) Xpk-tvfl-zimjeay adve rse reaction to medication (12/05/2019)Plan:To increase activity, diet,klonopin. Start Losartan Name Value Range Interpretation Code Description Data Melani rce(s) Supporting Document(s ) ID Date Data Source [id number] 12/07/2019 10:13:28 AM EDT [facility] LTM EEG building insulation supervisor DC'd per Dr. Jacob. Name Value Range Interpretation Code Description Data Melani rce(s) Supporting Document(s ) ID Date Data Source [id number] 12/07/2019 10:08:27 AM EDT [place] [address] [address] Crespo BUTCH [id number]: MAXWELL BRAYMRN: [id number]: [id number]#: [id number] DATE: 12/05/2019LONG TERM MONITORING VIDEO PRODUCTION SHIFT SUPERVISOR: Riky Rodriguez HISTORY: The patient is a [...] montages. Digital analysis was performed employing an [employer] neuralnetwork program with parameterization and statistical [...] seen, that attenuates with eye opening.There was vdog-vs-cotrgxha gener alized background slowing.There was no clear focal slowing.ACTIVATION TECHNIQUES: Ph otic stimulation and hyperventilation were notperformed.SLEEP: During drowsiness, there is mild attenuation and slowing of thebackground rhythm. There was normal sleep seen including symmetric vertexwaves, sleep spindles, and K-complexes.OTHER AC TIVITY: There were no clear epileptiform discharges and no seizures orclinical ev ents recorded.DIGITAL ANALYSIS: Variable spectral pattern without significant lef b-se-lciancywdhpajmoj. Spikes were artifact in nature.DECEMBER 06 DAILY [...] the awake and asleep states due to zpws-hq-jhizydus diffuse cerebraldysfunc tion that improves to mild over the course of the recording. TRENT JACOB, MDDD: #12/06/2019 10:21:35/SS /[id number]/[id number] #: [id number] / [id number] Name Value Range Interpretation Code Description Data Melani rce(s) Supporting Document(s ) ID Date Data Source [id number] 12/07/2019 07:45:20 AM EDT [facility] Bedside and Verbal shift change report cristi Dove RN (3Loria) (oncomingnurse) by Vy Green RN (offgoing nurse). Report included the following information SBCIERRA, Nano Benites Recent Results. Name Value Range Interpretation Code Description Data Melani rce(s) Supporting Document(s ) ID Date Data Source [id number] 12/07/2019 07:22:41 AM EDT [facility] All leads and head wrapping intact. Day 2 LTM complete. Awaiting instructions tocontinue for day 3 or DC. Name Value Range Interpretation Code Description Data Melani rce(s) Supporting Document(s ) ID Date Data Source [id number] 12/07/2019 05:19:11 AM EDT [facility] Name Value Range Interpretation Description Data Sup porting Code Source(s) Document(s ) Sodium 138 136-145 [facility] [Moles/volume] mmol/L [facility] Serum or Hospital Plasma Potassium 3.5 3.5-5.1 [facility] [Moles/volume] mmol/L [facility] in Serum or Hospital Plasma Chloride 106 98-107 [facility] [Moles/volume] mmol/L [facility] in Serum or Hospital Plasma Carbon 27 21-32 [facility] dioxide, total mmol/L [facility] [Moles/volume] Hospital in Serum or Plasma Anion gap in 10 10-20 [facility] Serum or mmol/L [facility] Plasma Hospital Glucose 140 74-106 Above high normal [facility] [Mass/volume] mg/dL [facility] Serum or Hospital Plasma Urea nitrogen 19 mg/dL 7-18 Above high normal [facility] [Mass/volume] [facility] in Serum or Hospital Plasma Creatinine 0.94 0.70-1.3 [facility] [Mass/volume] mg/dL 0 [facility] in Serum or Hospital Plasma Glomerular >60 [facility] filtration [facility] rate/1.73 sq M Hospital predicted among blacks [Volume Rate/Area] in Serum or Plasma by Creatinine-bas ed formula (MDRD) Glomerular >60 [facility] filtration [facility] rate/1.73 sq M Hospital predicted among non-blacks [Volume Rate/Area] in Serum or Plasma by Creatinine-bas ed formula (MDRD) (NOTE)Estimated GFR is calculated using the Modification of Diet in RenalDisease (MDRD) Study equation, reported for both Americans(GFRAA) and non- Americans (GFRNA), and normalized to 1.7 9f5qzzf surface area. The physician must decide which value applies tothe patient . The MDRD study equation should only be used inindividuals age 18 or older. It has no t been validated for thefollowing: women, patients with serious comorbid co nditions,or on certain medications, or persons with extremes of body size,muscl e mass, or nutritional status. Calcium [Mass/volume] in Serum 9.1 mg/dL 8.5-10.1 [facility] or Plasma Hospital ID Date Data Source [id number] 12/06/2019 08:12:24 PM EDT [facility] Bedside and Verbal shift change report cristi Loyd RN (oncoming nurse) Estephania Wakefield RN (offgoing nurse). Report included the followinginformation SBAR, Kardex, MAR, Recent Results, and Med Rec Status. Name Value Range Interpretation Code Description Data Melani rce(s) Supporting Document(s ) ID Date Data Source [id number] 12/06/2019 04:57:12 PM EDT [facility] General Daily Progress NoteAdmit Date: [...] (LOVENOX) injection 40 mg 40 mg SubCUTAneous S29NGvxtymdor:Patient Vi tals for the past 8 hrs: BP Temp Pulse Resp FiA57912/06/19 1547 (!) 164/100 99.6 F (3 7.6 [...] Time: 12/06/19 4:25 AMResult Value Ref Range Plaza level 1.09 0.6 - 1.2 MMOL/L Xr [...] initial encounter (12/05/2019)Active Problems: Encephalopathy acute (12/05/2019) Vqp-qqdo-abeaxtd adve rse reaction to medication (12/05/2019)Plan:To reduce iv fluids, repeat lasix Name Value Range Interpretation Code Description Data Melani rce(s) Supporting Document(s ) ID Date Data Source [id number] 12/06/2019 04:14:48 PM EDT [facility] Psychiatry Consult NoteSubjective:Patien t: Maxwell Bray [...] of morbidity or mortality cardiac cath at [facility] approx 6-8 months ago Other unknown and unspecified cause of morbidity or mortal ity concussions Other unknown and unspecified cause of morbidity or mortal ity "periodic disorientation" Other unknown and unspecified cause of morbidity or mo rtality anxiety Psychiatric disorder anxiety, depressionPsychiatric History: Patient reported he [facility] bu t did not discuss details.Substance Use History:Social HistorySubstance and Sexu al ActivityAlcohol Use No Frequency: Never Drinks per session: 1 or 2 Binge freque ncy: NeverSocial HistorySubstance and Sexual ActivityDrug Use NoObjective:Vitals/Phys ical Assessment:Patient Vitals for the past 8 hrs: BP Temp Pulse Resp DmM17712/06/19 081 3 (!) 153/94 100.4 F (38 [...] encounter (12/05/2019)A ctive Problems: Encephalopathy acute (12/05/2019) Eyi-pdlj-rvrrxwz adverse re action to medication (12/05/2019)Plan:No current [...] Supporting Document(s ) ID Date Data Source [id number] 12/06/2019 01:18:16 PM EDT [facility] Trent Jacob MD[address], [address] [place] [address] [id number].[facility] Progress NotePatient: Maxwell Bray Sex: male DOA: 12/05/2019Date of : 1970 Age: 49 y.o. LOS: LOS: 1 daySubjective:Awake, alert, tremulous, no current complaintsEEG w/ mild to mod gen slowREVIEW OF SYSTEMS: NO CP, SOB, N,V,D, F,CCurrent Facility-Administered MedicationsMedication Dose Route Frequen cy 0.9% sodium chloride infusion 125 mL/hr IntraVENous CONTINUOUS enoxaparin (LOVE NOX) injection 40 mg 40 mg SubCUTAneous N79VPvynjhdjk:Visit VitalsBP (!) 153/94 (BP 1 Location: Left arm, BP Patient Position: At rest)Pulse 100Temp 100.4 F (38 C)Resp 18Ht 5' 5.75" (1.67 m)Wt 300 lb (136.1 kg)SpO2 96%BMI 48.79 kg/m Body mass index is 48.79 kg/m .Patient Vitals for the past 24 hrs: Temp Pulse Resp BP LgU80412/06/19 0813 100.4 F (38 C) 100 18 [...] past 24 hours were reviewed both during [facility] daily workflow process and at the time notated as "note time" in [facility]. (It is not time stamped separately [...] Time: 12/06/19 4:25 AMResult Value Ref Range Plaza level 1.09 0.6 - 1.2 MMOL/LCT Results [...] Results (most recent):Results from Hospital [facility] encounter on 12/05/19MRI BRAIN WO CONT Narrative [...] hic pain of shoulder M79.2 Seizure disorder ([facility]) G40.909 Spells [id number] Severe ob esity ([facility]) E66.01 Depression F32.9 Anxiety F41.9 Bipolar disorder (HCC) F31.9 Dep ressive disorder F32.9 Status post gastric bypass for obesity Z98.84 Morbid obesit y ([facility]) E66.01 Mixed anxiety and depressive disorder F41.8 Vitamin D deficiency E55 .9 Bipolar disorder with severe depression ([facility]) F31.4 Encephalopathy acute G93.40 Adverse drug reaction, initial encounter T50.905A Npm-izze-pffzecd adverse react ion to medication T88.7XXA49 year [...] Name Value Range Interpretation Code Description Data [facility] Supporting Document(s ) ID Date Data Source [id number] 12/06/2019 11:43:34 AM EDT [facility] LTM study day 1 complete. All leads and head wrapping intact. Day 2 LTM studycommenced and LIVE via WIFI on [facility]. 06/28 Name Value Range Interpretation Code Description Data [facility](s) Supporting Document(s ) ID Date Data Source [id number] 12/06/2019 10:48:32 AM EDT [facility] Care Management InterventionsPCP Verifie d by CM: YesCurrent Support Network: Own Home, Lives with SpouseThe Patient and/o r Patient Police Records Clerk was Provided with a Choice of Providerand Agrees with the Betty rose Plan?: YesFreedom of Choice List was Provided with Basic Dialogue that Suppor ts thePatient's Individualized Plan of Care/Goals, Treatment Preferences and Sh aresthe Quality Data Associated with the Providers?: YesVeteran Resource Informat ion Provided?: RefusedDischarge LocationDischarge Placement: HomeCASE YUE LORENZ PSYCHOSOCIAL ASSESSMENTMaxwell Mendieta Lucama Admission Marlon e: 12/05/2019MRN: [id number] of : 1970Current date: 12/06/2019 DISCHARGE PLAN: Patient is a 49 year old male admitted to [facility]. CM attempted toreach hi m [...] services. Open for SNF. Family would like [facility]. CM CCLINKD. CM willfollow.Patient Information:Patients Preferred Name: [...] Ritika Canas MDAdmitting Provider: Ritika lobo MDSENTARA [facility] IN[facility]EC[facility] PRINTING ENGINEER: N/APayor: P ayor: [facility] HEALTH PLAN / Plan: [facility] HEALTH PLAN /Product Type: HMO /Secondary Payor : @SECINSGROUPNAME@Encephalopathy acute [G93.40]Nmt-qpne-qgbuphe adverse reactio n to medication [T88.7XXA]Pdw-qztw-zafotlo adverse reaction to medication [T88.7XXA ]Patient Active Problem ListDiagnosis Code H/O gastric bypass Z98.84 Insomnia G47. 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 Seizure disorder (HCC) G40.909 Spells I [id number] Severe obesity (HCC) E66.01 Depression F32.9 Anxiety F41.9 Bipolar disorder (HCC) F31.9 Depressive disorder F32.9 Status post gastric bypass for ob esity Z98.84 Morbid obesity (HCC) E66.01 Mixed anxiety and depressive disorder F4 1.8 Vitamin D deficiency E55.9 Bipolar disorder with severe depression (HCC) F3 1.4 Encephalopathy acute G93.40 Adverse drug reaction, initial encounter T50.905 A Dcx-prtg-morrxuh adverse reaction to medication T88.7XXASocial HistorySubstan ce [...] Supporting Document(s ) ID Date Data Source [id number] 12/06/2019 07:40:06 AM EDT [facility] 1938: Patient found in bed resting [...] Supporting Document(s ) ID Date Data Source [id number] 12/06/2019 05:07:27 AM EDT [facility] Name Value Range Interpretation Description Data Sup porting Code Source(s) Document(s ) Plaza 1.09 0.6-1.2 [facility] - Good [Moles/volu MMOL/L Sabianism me] in Hospital Serum or Plasma ID Date Data Source [id number] 12/05/2019 07:59:09 PM EDT [facility] Name Value Range Interpretation Description Data Sup porting Code Source(s) Document(s ) Ammonia 16 UMOL/L 11-32 [facility] - Good [Moles/volum Sabianism e] in Plasma Hospital ID Date Data Source [id number] 12/05/2019 07:56:38 PM EDT [facility] Name Value Range Interpretation Description Data Sup porting Code Source(s) Document(s ) Lactate 0.9 0.4-2.0 [facility] - Good [Moles/volu MMOL/L Sabianism me] in Hospital Serum or Plasma ID Date Data Source [id number] 12/05/2019 06:42:57 PM EDT [facility] 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 Day 1 LTM comm enced and LIVE via WIFI on [facility] 06/28 Name Value Range Interpretation Code Description Data Melani rce(s) Supporting Document(s ) ID Date Data Source [id number] 12/05/2019 06:07:34 PM EDT [facility] [id number] [employer] [facility] [address] [facility] [address] [phone] Maxwell Bray (Male) [id number] I 3 ED Dispo:ADMIT Chief Complaint: Fall, Fatigue Diagnosis: Altered mental status, unspecified altered mental status type [] Adverse drug reaction, initial encounter [] Encephalopathy acute [] Nti-qxrx-ecxsfgw adverse effect of medication, subsequent encounter [] Bipolar disorder with severe depression (HCC) [] H/O gastric bypass [] Curre nt Providers: Attending: Patsy Manzo; Kristy Otero; Cristi Canas Consulting Provider: Jose Centeno; Cristi Canas; Javier Khan; Cristi Frazier Primary Nurse: BAILEY GambleN: [phone] 5 [phone] [employer] [phone] - [employer] [employer] MrnMRN: [id number] [employer] [phone] - [employer] Age SexDOB 1970 AGE 49 SEX Male Primary Care Provider: Ritika Canas MD Phone: Allergies: (No Known Allergies)Date Reviewed: 12/05/2019Reviewed by: Ritika Canas MD - Review CompleteED Provider Notes: All notesHNO ID: [id number]: Julio Manzo MDService: EMERGENCYAuthor Type: Physici anFiled: [...] of morbidity or mortality cardiac cath at [facility] approx 6-8 months ag o [...] week Gets together: Once a week Attends latter day service: More than 4 times per year [...] Calculation (Bez et) 515 ms Calculated P Sunray 40 degrees Calculated R Sunray 41 degrees Calculated T Sunray 147 degrees Diagnosis Sinus tachycardiaProbable left atrial [...] Time: 12/05/19 12:38 PMResult Value Ref Range Plaza level 1 .53 (HH) 0.6 - 1.2 MMOL/LLACTIC ACID Collection Time: 12/05/19 12:40 PMResult Value Ref Range Lactic acid 1.1 0.4 - 2.0 MMOL/LEKG:Sinus tachycardia at 100 BPM, normal axis, nothing acute.Interpreted by Julio Manzo MD11:20 AM quality assurance monitor chassis reading shows sinus tachycardia at 100 BPM.Interpreted [...] mental status, unspecified altered mental status type R41.25682.97Patient c ondition at time of disposition: StableI [...] thediagnostic studies, unless otherwise noted.+ED Orde rs [id number] RN PLASTIC SURGERY - ED ONLY [#[id number]] Priority: STAT Class: Hospital Performe d Standing Order Information Remaining Occurrences:0/1 Interval:Continuous Last release d:12/05/2019 Released orders: SunDec 05, 2019 11:20 AM by: JULIO MANZO Type: -> Bedside N [id number] PULSE OXIMETRY CONTINUOUS [#[id number]] Priority: STAT Class: Hospital Performe d Standing Order Information Remaining Occurrences:0/1 Interval:CONTINUOUS Last release d:12/05/2019 Released orders: SunDec 05, 2019 11:20 AM by: JULIO MANZO [id number] PULSE OXIMETRY SPOT CHECK [#[id number]] Priority: STAT Class: Hospital Performed Standing Order Inf ormation Remaining Occurrences:0/1 Interval:ONE TIME Last released:12/05/2019 Release d orders: SunDec 05, 2019 11:20 AM by: JULIO MANZO [id number] OBTAIN OLD EKG [ #[id number]] Priority: Routine Class: Hospital Performed Standing Order Information Remainin g Occurrences:0/1 Interval:ONE TIME Last released:12/05/2019 Released orders : SunDec 05, 2019 11:20 AM by: JULIO MANZO [id number] RN PLASTIC SURGERY - ED ONLY [# [id number]] Priority: STAT Class: Hospital Performed Type: -> Bedside Released on: 12/05/2019 11:20 AM [id number] PULSE OXIMETRY CONTINUOUS [#[id number]] Priority: STAT Class: Hospital Performe d Released on: 12/05/2019 11:20 AM [id number] PULSE OXIMETRY SPOT CHECK [#[id number]] Priori ty: STAT Class: Hospital Performed Released on: 12/05/2019 11:20 AM [id number] OBTAIN OLD EKG [#[id number]] Priority: STAT Class: Hospital Performed Released on: 12/05/2019 11:20 AM [id number] VITAL SIGNS PER UNIT ROUTINE [#[id number]] Priority: STAT Class: Hospital Performed Stand ing Order Information Remaining Occurrences:0/1 Interval:CONTINUOUS Last released :12/05/2019 Released orders: SunDec 05, 2019 2:41 PM by: RITIKA CANAS Comment:More frequent ly if Indicated. [id number] BEDREST, COMPLETE [#[id number]] Priority: STAT Class: H ospital Performed Standing Order Information Remaining Occurrences:0/1 Interval:CONTIN UOUS Last released:12/05/2019 Released orders: SunDec 05, 2019 2:41 PM by: RITIKA CANAS [id number] NOTIFY PROVIDER: VITAL SIGNS CHANGES [#[id number]] Priority: STAT Class: Hospital Performe d Standing [...] Less than 120 ml in 4 hours [id number] APPLY/MAINTAIN SEQUENTIAL COMPRESSIO* [# [id number]] Priority: STAT Class: Hospital Performed Standing Order Information Remaining Occurre nces:0/1 Interval:CONTINUOUS Last released:12/05/2019 Released orders: SunDec 05, 2019 2:41 PM by: RITIKA CANAS [id number] VITAL SIGNS PER UNIT ROUTINE [#[id number]] Priorit y: STAT Class: Hospital Performed Comment:More frequently if Indicated. Released on: 12/05/2019 2 :41 PM [id number] BEDREST, COMPLETE [#[id number]] Priority: STAT Class: Hospital Performe d Released on: 12/05/2019 2:41 PM [id number] NOTIFY PROVIDER: VITAL SIGNS CHANGES [#[id number]] Priority: STAT Class: Hospital Performed Temp -> [...] carmen rs Released on: 12/05/2019 2:41 PM [id number] APPLY/MAINTAIN SEQUENTIAL COMPRESSIO* [#[id number]] P riority: STAT Class: Hospital Performed Released on: 12/05/2019 2:41 PM [id number] RT--OXYGEN CANNULA [#[id number]] Priority: STAT Class: Hospital Performed Standing Order Information Remaining Occurrences:0/1 Interval:CONTINUOUS Last released:12/05/2019 Released o rders: SunDec 05, 2019 11:20 AM by: JULIO MANZO LPM -> 2 Indications for O2? -> CHEST PAIN [id number] RT--OXYGEN CANNULA [#[id number]] Priority: STAT Class: Hospital Performe d LPM -> 2 Indications for O2? -> CHEST PAIN Released on: 12/05/2019 11:20 AM [id number] DIET NPO [#[id number]] Canceled Priority: STAT Class: Hospital Performed Cancele d by RITIKA CANAS on SunDec 05, 2019 2:41 PM Reason: None Comment: Standing Order Information Remaining Occurrences:0/1 Interval:DIET EFFECTIVE NOW Last released:12/05/2019 Release d orders: SunDec 05, 2019 11:20 AM by: JULIO MANZO NPO options: -> With Meds [id number] DIET NPO [#[id number]] Canceled Priority: STAT Class: Hospital Performed Cancele d by RITIKA CANAS on SunDec 05, 2019 2:41 PM Reason: None Comment: NPO options: -> With Meds Released on: 12/05/2019 11:20 AM [id number] DIET NPO [#[id number]] Priority: S TAT Class: Hospital Performed Standing Order Information Remaining Occurrences:0/1 Inter haile:DIET EFFECTIVE NOW Last released:12/05/2019 Released orders: SunDec 05, 2019 2:41 PM by: RITIKA CANAS [id number] DIET NPO [#[id number]] Priority: STAT Class: H ospital Performed Released on: 12/05/2019 2:41 PM [id number] SALINE LOCK IV [#[id number]] Priority: STAT Class: Hospital Performed Standing Order Information Remaining Occurrences:0 /1 Interval:ONE TIME Last released:12/05/2019 Released orders: SunDec 05, 2019 11:20 AM by: JULIO MANZO IVT11 SALINE LOCK IV [#[id number]] Priority: STAT Cl ass: Hospital Performed Released on: 12/05/2019 11:20 AM [id number] METABOLIC PANEL, COMPREHENSIVE [# [id number]] Priority: STAT Class: ER Collect Standing Order Information Remaining Occurrences:0 /1 Interval:ONE TIME Last released:12/05/2019 Released orders: SunDec 05, 2019 11:20 AM by: JULIO MANZO [id number] CBC WITH AUTOMATED DIFF [#[id number]] Priority: STAT Cl ass: ER Collect Standing Order Information Remaining Occurrences:0/1 Interval:ONE TI ME Last released:12/05/2019 Released orders: SunDec 05, 2019 11:20 AM by: JULIO MANZO [id number] TROPONIN I [#[id number]] Priority: STAT Class: ER Collect Sta nding Order Information Remaining Occurrences:0/1 Interval:ONE TIME Last released:0 12/05/2019 Released orders: SunDec 05, 2019 11:20 AM by: JULIO MANZO [id number] MAGNESIUM [#[id number]] Priority: STAT Class: ER Collect Standing Order Information Remaining Occurrences:0/1 Interval:ONE TIME Last released:12/05/2019 Released orders : SunDec 05, 2019 11:20 AM by: JULIO MANZO [id number] LACTIC ACID [#[id number]] Priority: STAT Class: ER Collect Standing Order Information Remaining Occurrences:0/2 Interval:NOW THEN EVERY 4 HOURS Last released:12/05/2019 Released orders: SunDec 05, 2019 12:06 PM by: JULIO MANZO SunDec 05, 2019 11:20 AM by: JULIO MANZO [id number] PROTHROMBIN TIME + INR [#[id number]] Priority: STAT Class: ER Collect Standing Order Information Remain ing Occurrences:0/1 Interval:ONE TIME Last released:12/05/2019 Released orders : SunDec 05, 2019 11:20 AM by: JULIO MANZO [id number] URINALYSIS W/ RFLX MICROSCOPIC [# [id number]] Priority: STAT Class: ER Collect Standing Order Information Remaining Occurrences:0 /1 Interval:ONE TIME Last released:12/05/2019 Released orders: SunDec 05, 2019 11:20 AM by: JULIO MANZO [id number] METABOLIC PANEL, COMPREHENSIVE [#[id number]] Priority: STAT Cl ass: ER Collect Specimen Source: Plasma Specimen Collected: 12/05/2019 12:38 PM Resulting Agency: [facility] Test ID: MPL Released on: 12/05/2019 11:20 AM [id number] CBC WITH A UTOMATED DIFF [#[id number]] Priority: STAT Class: ER Collect Specimen Source: Whole Blood S pecimen Collected: 12/05/2019 12:38 PM Resulting Agency: [facility] Test ID: CBCXA Released on: 12/05/2019 11:20 AM [id number] TROPONIN I [#[id number]] Prior ity: STAT Class: ER Collect Specimen Source: Plasma Specimen Collected: 12/05/2019 12:38 PM Resultin g Agency: [facility] Test ID: TROIP Released on: 12/05/2019 11:20 AM [id number] 2 MAGNESIUM [#[id number]] Priority: STAT Class: ER Collect Specimen Source : Plasma Specimen Collected: 12/05/2019 12:38 PM Resulting Agency: [facility] Test ID: MGPL Released on: 12/05/2019 11:20 AM [id number] LACTIC ACID [#[id number]] P riority: STAT Class: ER Collect Specimen Source: Plasma Specimen Collected: 12/05/2019 12:40 PM Resultin g Agency: [facility] Test ID: LAC Released on: 12/05/2019 11:20 AM [id number] PROTHR OMBIN TIME + INR [#[id number]] Priority: STAT Class: ER Collect Specimen Source: Plasma Spe cimen Collected: 12/05/2019 12:38 PM Resulting Agency: [facility] Test ID: APTHR R eleased on: 12/05/2019 11:20 AM [id number] URINALYSIS W/ RFLX MICROSCOPIC [#[id number]] Prior ity: STAT Class: ER Collect Specimen Source: Urine Specimen Collected: 12/05/2019 2:45 PM Resultin g Agency: [facility] Test ID: UA Released on: 12/05/2019 11:20 AM [id number] JAYLAN M [#[id number]] Priority: STAT Class: ER Collect Standing Order Information Remaining Occurrences:0/1 Interval:ONE TIME Last released:12/05/2019 Released orders : SunDec 05, 2019 11:40 AM by: MECHELLE GAMBLE [id number] LITHIUM [# [id number]] Priority: STAT Class: ER Collect Specimen Source: Serum Specimen Collected: 12/05/2019 12 :38 PM Resulting Agency: [facility] Test ID: LI Released on: 12/05/2019 11:40 AM [id number] LITHIUM [#[id number]] Canceled Priority: STAT Class: ER Collect Canceled by TENA, LAB IN [facility] on SunDec 05, 2019 11:42 AM Reason: Other Comment: Duplicate Standing Order Information Remaining Occurrences:0/1 Interval:ONE TIME Last released:0 12/05/2019 Released orders: SunDec 05, 2019 11:41 AM by: JULIO MANZO [id number] LITHIUM [#[id number]] Canceled Priority: STAT Class: ER Collect Specimen Collected: 12/05/2019 11:45 AM Resulting Agency: [facility] Test ID: LI Canceled by TENA, [facility] on SunDec 05, 2019 11:42 AM Reason: Other Comment: Duplicate Rele ased on: 12/05/2019 11:41 AM [id number] LACTIC ACID [#[id number]] Priority: STAT Cl ass: ER Collect Resulting Agency: [facility] Test ID: LAC Released on: 12/05/2019 12:06 PM [id number] AMMONIA [#[id number]] Priority: Routine Class: ER Collect Specimen Source: Blood Standing Order Information Remaining Occurrences:0/1 Interval:ONE TI ME Last released:12/05/2019 Released orders: SunDec 05, 2019 3:19 PM by: Javier KHAN [id number] AMMONIA [#[id number]] Priority: STAT Class: ER Collect Spe cimen Source: Blood Resulting Agency: [facility] Test ID: NH3 Released on: 12/05/2019 3:19 PM [id number] BILIRUBIN, CONFIRM [#[id number]] Priority: Routine Class : ER Collect Resulting Agency: [facility] Test ID: ICTO Standing Order Informat ion Remaining Occurrences:0/1 Released orders: SunDec 05, 2019 2:45 PM by: Automatic B atch Process [id number] BILIRUBIN, CONFIRM [#[id number]] Priority: Routine Class : ER Collect Specimen Source: Miscellaneous sample Specimen Collected: 12/05/2019 2:45 PM Resultin g Agency: [facility] Test ID: ICTO Released on: 12/05/2019 2:45 PM [id number] EKG, 12 LEAD, INITIAL [#[id number]] Priority: STAT Class: Hospital Performed Stand ing Order Information Remaining Occurrences:0/1 Interval:ONE TIME Last released:0 12/05/2019 Released orders: SunDec 05, 2019 11:20 AM by: JULIO MANZO Reason for Exam: -> Chest Pain [id number] EKG, 12 LEAD, INITIAL [#[id number]] Priority: STAT Class: H ospital Performed Resulting Agency: [facility] Test ID: [id number] Reason for Exam: -> Chest Pain Releas ed on: 12/05/2019 11:20 AM [id number] XR CHEST PORT [#[id number]] Priority: STAT Clas s: Hospital Performed Standing Order Information Remaining Occurrences:0/1 Interval:ONE TI ME Last released:12/05/2019 Released orders: SunDec 05, 2019 11:20 AM by: JULIO MANZO Reason for Exam -> Chest Pain [id number] CT HEAD WO CONT [#[id number]] Priority: S TAT Class: Hospital Performed Standing Order Information Remaining Occurrences:0/1 Inter haile:ONE TIME Last released:12/05/2019 Released orders: SunDec 05, 2019 11:20 AM by: JULIO MANZO Reason for Exam -> ams [id number] XR PELV AP ONLY [#[id number]] Priority: S TAT Class: Hospital Performed Standing Order Information Remaining Occurrences:0/1 Inter haile:ONE TIME Last released:12/05/2019 Released orders: SunDec 05, 2019 11:20 AM by: JULIO MANZO Reason for Exam -> fall [id number] XR CHEST PORT [#[id number]] Priority: STAT Class: Hospital Performed Specimen Collected: 12/05/2019 12:21 PM Resulting Agency: [facility] Test ID: [id number] Reason for Exam -> Chest Pain Released on: 12/05/2019 11:[id number] HEAD WO CONT [#[id number]] Priority: STAT Class: Hospital Performed Specimen Collected : 12/05/2019 12:43 PM Resulting Agency: [facility] Test ID: [id number] Reason for Exam -> ams R eleased on: 12/05/2019 11:20 AM [id number] XR PELV AP ONLY [#[id number]] Priority: STAT Class: Hospital Performed Specimen Collected: 12/05/2019 12:23 PM Resulting Agency: [facility] Test ID : [id number] Reason for Exam -> fall Released on: 12/05/2019 11:20 AM [id number] MRI BRAIN WO CONT [#[id number]] Priority: STAT Class: Hospital Performed Standing Order Information Remaining Occurrences:0/1 Interval:ONE TIME Last released:12/05/2019 Released orders : SunDec 05, 2019 3:19 PM by: JOSE KHAN Reason for Exam -> ams [id number] MRI BRA IN WO CONT [#[id number]] Priority: STAT Class: Hospital Performed Specimen Collected : 12/05/2019 5:03 PM Resulting Agency: [facility] Test ID: [id number] Reason for Exam -> ams R eleased on: 12/05/2019 3:19 PM [id number] CULTURE, BLOOD [#[id number]] Priority: Routi ne Class: ER Collect Specimen Source: Blood Standing Order Information Remaining Occurrences:0 /1 Interval:ONE TIME Last released:12/05/2019 Released orders: SunDec 05, 2019 11:20 AM by: JULIO MANZO [id number] CULTURE, BLOOD [#[id number]] Priority: STAT Cl ass: ER Collect Specimen Source: Blood Standing Order Information Remaining Occurrences:0/1 I nterval:ONE TIME Last released:12/05/2019 Released orders: SunDec 05, 2019 11:20 AM by: JULIO MANZO3 CULTURE, BLOOD [#[id number]] Priority: STAT Class: E R Collect Specimen Source: Blood Specimen Collected: 12/05/2019 12:38 PM Resulting Agency: [facility] Test ID: HBCS Released on: 12/05/2019 11:20 AM [id number] CULTURE, BLOOD [#[id number]] Priority: STAT Class: ER Collect Specimen Source: Blood Specimen Collected: 12/04 12:30 PM Resulting Agency: [facility] Test ID: HBCS Released on: 12/05/2019 11:20 AM CEFTRIAXONE 1 GRAM IVPB MBP [#[id number]] Priority: STAT Class: Normal An tibiotic Indications -> Sepsis of Unknown Etiology SODIUM CHLORIDE 0.9 % IV [#[id number]] Priority: STAT Class: Normal SODIUM CHLORIDE 0.9 % IV [#[id number]] Priority : STAT Class: Normal ENOXAPARIN 40 MG/0.4 ML SUB-Q SYRINGE [#[id number]] Priority: STAT Class: N ormal ENOXAPARIN 40 MG/0.4 ML SUB-Q SYRINGE [#[id number]] Priority: STAT Class: Normal FUROSEMIDE 10 MG/ML IJ SOLN [#[id number]] Priority: STAT Class: Normal CON53 IP CONSULT TO PS YCHIATRY [#[id number]] Priority: STAT Class: Hospital Performed Standing Order Information Remaining Occurrences:0/1 Interval:ONE TIME Last released:12/05/2019 Released orders : SunDec 05, 2019 11:42 AM by: JULIO MANZO Reason for Consult: -> si Did you call or spea k to the consulting provider? -> No Consult To -> si CON53 IP CONSULT TO PSYCHIATRY [#[id number]] Priority: STAT Class: Hospital Performed Reason for Consult: -> si Did you call or spea k to the consulting provider? -> No Consult To -> si Released on: 12/05/2019 11:42 AM CON62 IP CON SULT TO INTERNAL MEDICINE [#[id number]] Priority: STAT Class: Hospital Performed Standing Order Inf ormation Remaining Occurrences:0/1 Interval:ONE TIME Last released:12/05/2019 Release d orders: SunDec 05, 2019 2:16 PM by: ACRLA OTERO Reason for Consult: -> Altered mental st atus, Dr. Canas to admit Did you call or speak to the consulting provider? -> Yes CON62 IP CONSULT TO INTERNAL MEDICINE [#[id number]] Priority: STAT Class: Hospital Performed Reason for Consu lt: -> Altered mental status, Dr. Canas to admit Did you call or speak to the consulting provider? -> Yes Released on: 12/05/2019 2:16 PM CON53 IP CONSULT TO PSYCHIATRY [#[id number]] Priority: STAT Class: Hospital Performed Standing Order Information Remaining Occurrences:0 /1 Interval:ONE TIME Last released:12/05/2019 Released orders: SunDec 05, 2019 2:41 PM by: RITIKA CANAS Reason for Consult: -> adverse med reaction Did you call or speak to t he consulting provider? -> No Consult To -> Dr Aguirre Schedule When? -> TODAY CON9 IP CONSULT TO N EUROLOGY [#[id number]] Priority: STAT Class: Hospital Performed Standing Order Information Remaining Occurrences:0/1 Interval:ONE TIME Last released:12/05/2019 Released orders : SunDec 05, 2019 2:41 PM by: RITIKA CANAS Reason for Consult: -> encephalopathy adverse drug reaction Did you call or speak to the consulting provider? -> No Consult To -> Dr Jcaob Schedule When? -> TODAY CON53 IP CONSULT TO PSYCHIATRY [#[id number]] Priority: STAT Class: H ospital Performed Reason for Consult: -> adverse med reaction Did you call or speak to the consulting provider? -> No Consult To -> Dr Aguirre Schedule When? -> TODAY Released on: 12/05/2019 2:41 P M CON9 IP CONSULT TO NEUROLOGY [#[id number]] Priority: STAT Class: Hospital Performe d Reason for Consult: -> encephalopathy adverse drug reaction Did you call or speak to the consulting provider? -> No Consult To -> Dr Jacob Schedule When? -> TODAY Released on: 12/05/2019 2:41 P M [id number] INITIAL PHYSICIAN ORDER: OBSERVATION* [#[id number]] Priority: Routine Class: ADT Pend Trans milvia Standing Order Information Remaining Occurrences:0/1 Interval:ONE TIME Last release d:12/05/2019 Released orders: SunDec 05, 2019 2:00 PM by: LUZ ELENA GATES Patient Class: -> OBS ERVATION Admitting Diagnosis -> Encephalopathy acute Admitting Physician -> CARLA OTERO Attending Physician -> CARLA OTERO [id number] INITIAL PHYSICIAN ORDER: OBSERVATION* [#[id number]] Priority: Routine Class: ADT Pend Transfer Patient Class: -> OBSERVATION Admitting Diagnosis -> Encephalopathy acute Admitting Physician -> CARLA OTERO Attending Physician -> CARLA OTERO Released on: 12/05/2019 2:00 PM [id number] INITIAL PHYSICIAN ORDER: INPATIENT [#[id number]] Pristeph brayy: Routine Class: ADT Pend Transfer [...] o- n- ) Admitting Diagnosis - > Ips-ipxq-aikqjdh adverse reaction to medication Admitting Physician -> RITIKA CANAS Physician -> RITIKA CANAS Estimated Length of Stay -> 5-7 Midnights Discharge Plan: -> Other (Specify) [id number] INITIAL PHYSICIAN ORDER: INPATIENT [#[id number]] Priority: Routine Class: ADT Pend Tr ansfer [...] i- o- n- ) Admitting Diagnosis -> Hov-aegx-jrvpayj adverse reaction to medication Admitting Physician -> RITIKA CANAS Attending Physician -> MARY CANAS Estimated Length of Stay -> 5-7 Midnights Discharge Plan: -> Other (Specify) [id number] INITI AL PHYSICIAN ORDER: INPATIENT [#[id number]] Priority: Routine Class: ADT Pend Transfer Status: [...] i- o- n- ) Admitting Diagnosis -> Wxf-zlku-ykoljzq adverse reaction to medication Admitting Physician -> RITIKA CANAS Attending Physician -> MARY CANAS Estimated Length of Stay -> 5-7 Midnights Discharge Plan: -> Other (Specify) Released on: 12/05/2019 2:41 PM [id number] INITIAL PHYSICIAN ORDER: INPATIENT [#[id number]] Priority: Routine Class : ADT Pend Transfer [...] o- n- ) Adm itting Diagnosis -> Ktk-zsnl-gcitrto adverse reaction to medication Admitting Physician -> RITIKA CANAS Attending Physician -> RITIKA CANAS Estimated Length of Stay -> 5-7 Midnights Discharge Plan: -> Other (Specify) Released on: 12/05/2019 2:41 PM COD2 FULL CODE [#[id number]] Priority: STAT Class: Hospital Performed Standing Order Information Remaining Occurrences:0 /1 Interval:CONTINUOUS Last released:12/05/2019 Released orders: SunDec 05, 2019 2:41 PM by: RITIKA CANAS COD2 FULL CODE [#[id number]] Priority: STAT Cl ass: Hospital Performed Released on: 12/05/2019 2:41 PM [id number] EEG 12-26 HR W/VIDEO [# [id number]] Priority: Routine Class: Hospital Performed Standing Order Information Remaining Occurre nces:0/1 Interval:ONE TIME Last released:12/05/2019 Released orders: SunDec 04 3:19 PM by: JOSE KHAN Reason for Exam: -> ams [id number] EEG 12-26 HR W/VIDEO [#[id number]] Priority: STAT Class: Hospital Performed Resulting Agency: [facility] EEG Test ID: [id number] Reason for Exam: -> ams Released on: 12/05/2019 3:19 Maxwell Corona MR#: [id number] * Rm: [id number] 01Ht: 5' 5" Wt: 300 lb Code: Full Code Iso:Diagnosis:Encep halopathy acute [G93.40]Allergies: No Known Allergies -------- Current as of: 12/05/191806 NB=New Bag --aspirin (ASPIRIN) tablet 325 mg #[id number] Admin Amount: 1 Tab (1 x 325 mg Tab) Ordered Dose: 325 mg Route: Oral Freq: ONCE Start Date: 12/24/13 No administration times (back 96 hours, ahead 96 hours). ------diphenhydrAMINE (BENADRYL) capsule 50 mg #[id number] Admin Amount: 1 Cap (1 x 50 mg Cap) Ordered Dose: 50 mg Route: Ora l Freq: NOW Start Date: 12/24/13 No administration times (back 96 hours, ahe ad 96 hours). ------diazepam (VALIUM) tablet 5 mg #[id number] Admin Amount: 1 Tab (1 x 5 mg Tab) Ordered Dose: 5 mg Route: Oral Freq: ON CE Start Date: 12/24/13 No administration times (back 96 hours, ahead 96 hours). ------lidocaine (XYLOCAINE) 10 mg/mL (1 %) injection 1-30 mL #[id number] Admin Amount: 1-30 mL Ordered Dose: 1-30 mL Route: IntraDERMal Freq: ONCE Start Date: 12/24/13 No administration times (back 96 hours, ahead 96 hours). ------heparin (PF) 2 units/ml in NS infusion 2,000 Units #[id number] Admin Amount: 1,000 mL = 2,000 Units of 2 Units/mL Ordered Dose: 1,000 mL [place]: Irrigation Freq: ONCE Start Date: 12/24/13 No administration times (back 96 hours, ahead 96 hours). ------heparinized saline 2 units/mL infusion 1,000 Units #[id number] Admin Amount: 500 mL = 1,000 Units of 2 Units/mL Ordered Dose: 500 mL [place]: IntraarTERial Freq: ONCE Start Date: 12/24/13 No administration times (back 96 hours, ahead 96 hours). ------0.9% sodium chloride infusion #[id number] Ordered Dose: 75 mL/hr Route: IntraVENous Freq: CONTINUOUS Start Date: 12/24/13 Rate: 75 mL/hr Duration: No administration times (back 96 hours, ahead 96 hours). ------ioversol (OPTIRAY) 320 mg iodine/mL contrast injection 1-100 mL #[id number] Admin Amount: 1-100 mL Ordered Dose: 1-100 mL Route: IntraVENous Freq: RAD O NCE Start Date: 12/24/13 No administration times (back 96 hours, ahead 96 hours).Maxwell Bray MR#: [id number] * Rm: 441-01Ht: 5' 5.75" Wt: 300 lb Cod e: Full Code Iso:Diagnosis:Encephalopathy acute [G93.40]Allergies: No Known Allergies -------- Current as of: 12/05/19 180 NB=New Bag --gadobutrol (GADAVIST) contrast solution 1-10 mL #[id number] Admin Amount: 1-10 mL Ordered Dose: 1-10 mL Route: IntraVENous Freq: RAD O NCE Start Date: 01/13/14 No administration times (back 96 hours, ahead 96 hours). ------sodium chloride (NS) flush 5-10 mL #[id number] Admin Amount: 5-10 mL Ordered Dose: 5-10 mL Route: IntraVENous Freq: RAD ONCE Start Date: 01/13/14 No administration times (back 96 hours, ahead 96 hours). ------sodium chloride (NS) 0.9 % flush #[id number] Ordered Dose: Route: Freq: Start Date: 01/13 No administration times (back 96 hours, ahead 96 hours). ------morphine injection 2 mg #[id number] Admin Amount: 1 mL = 2 mg of 2 mg/mL Ordered Dose: 2 mg Route: IntraVENous Freq: NOW Start Date: 03/13/15 No administration times (back 96 hours, ahe ad 96 hours). ------influenza vaccine (4 yr+)(PF) (FLUCELVAX QUAD) inj ection 0.5*#[id number] Admin Amount: 0.5 mL Ordered Dose: 0.5 mL Route: IntraMUSCular Freq: PRIOR TO DISCHARGE Start Date: 03/30/16 No administration times (back 96 hours, ahead 96 hours). ------oxyCODONE-acetaminophen (PERCOCET) 5-325 mg per tablet 1 Tab #[id number] Admin Amount: 1 Tab Ordered Dose: 1 Tab Route: Oral Freq: NOW Start Date: 09/07/17 No administration times (back 96 hours, ahead 96 hours). ------barium sulfate (READICAT) 2.1 % (w/v), 2.0 % (w /w) oral suspension 9*#[id number] Admin Amount: 900 mL Ordered Dose: 900 mL Route: Oral Delgado q: RAD ONCE Start Date: 10/15/17 No administration times (back 96 hours, ahead 96 hours). ------iopamidol (ISOVUE 300) 61 % contrast injection 100 mL #[id number] Admin Amount: 100 mL Ordered Dose: 100 mL Route: IntraVENous Freq: RAD ONC E Start Date: 10/15/17 No administration times (back 96 hours, ahead 96 hours).Maxwell Bray MR#: [id number] * Rm: 441-01Ht: 5' 5.75" Wt: 300 lb Code: Full Code Iso:Diagnosis:Encephalopathy acute [G93.40]Allergies: No Known Allergies -------- Current as of: 12/05/19 180 NB=New Bag --risperiDONE (RisperDAL m-tabs) disintegrating tablet 1 mg #[id number] Admin Amount: 1 Tab (1 x 1 mg Tab) Ordered Dose: 1 mg Route: Oral Freq: ONCE Start Date: 12/24/17 No administration times (back 96 hours, ahead 96 hours). ------ALPRAZolam (XANAX) tablet 2 mg #[id number] Admin Amount: 4 Tab (4 x 0.5 mg Tab) Ordered Dose: 2 mg Route: Ora l Freq: NOW Start Date: 12/24/17 No administration times (back 96 hours, ahe ad 96 hours). ------lamoTRIgine (LaMICtal) tablet 100 mg #[id number] Admin Amount: 1 Tab (1 x 100 mg Tab) Ordered Dose: 100 mg Route: Oral Delgado q: ONCE Start Date: 12/24/17 No administration times (back 96 hours, ahead 96 hours). ------OLANZapine (ZyPREXA zydis) disintegrating tablet 5 mg #[id number] Admin Amount: 1 Tab (1 x 5 mg Tab) Ordered Dose: 5 mg Route: Oral Delgado q: ONCE Start Date: 12/25/17 No administration times (back 96 hours, ahead 96 hours). ------LORazepam (ATIVAN) tablet 2 mg #[id number] Admin Amount: 4 Tab (4 x 0.5 mg Tab) Ordered Dose: 2 mg Route: Ora l Freq: NOW Start Date: 12/25/17 No administration times (back 96 hours, [facility] ad 96 hours). ------LORazepam (ATIVAN) injection 1 mg #[id number] Admin Amount: 0.5 mL = 1 mg of 2 mg/mL Ordered Dose: 1 mg Route: Int Katherin Freq: NOW Start Date: 12/25/17 No administration times (back 96 hours, e ad 96 hours). ------barium sulfate (EZ PAQUE) 96 % (w/w) contrast suspension 17 6 g #[id number] Admin Amount: 176 g Ordered Dose: 176 g Route: Oral Freq: RAD ONCE Start Date: 08/02/18 No administration times (back 96 hours, ahead 96 hours). ------barium sulfate (EZ PAQUE) 96 % (w/w) contrast s uspension 176 g #[id number] Admin Amount: 176 g Ordered Dose: 176 g Route: Oral Delgado q: RAD ONCE Start Date: 08/02/18 No administration times (back 96 hours, ahead 96 hours).Maxwell Ritter MR#: [id number] * Rm: 441-01Ht: 5' 5.75" Wt: 300 lb Cod e: Full Code Iso:Diagnosis:Encephalopathy acute [G93.40]Allergies: No Known Allergies -------- Current as of: 12/05/191806 NB=New Bag --aspirin chewable tablet 162 mg #[id number] Admin Amount: 2 Tab (2 x 81 mg Tab) Ordered Dose: 162 mg Route: Oral Freq: NOW Start Date: 08/10/19 No administration times (back 96 hours, ahead 96 hours). ------0.9% sodium chloride infusion 1,000 mL #[id number] Admin Amount: 1,000 mL Ordered Dose: 1,000 mL Route: IntraVENous Freq: ONC E Start Date: 08/16/19 Rate: 1,000 mL/hr Duration: No administration ti mes (back 96 hours, ahead 96 hours). ------methylPREDNISolone (PF) (Solu-MEDROL) injection 125 mg #[id number] Admin Amount: 2 mL = 125 mg of 125 mg/2 mL Ordered Dose: 125 mg Route: Int raVENous Freq: NOW Start Date: 08/16/19 No administration times (back 96 hours, ahe ad 96 hours). ------aspirin chewable tablet 162 mg #[id number] Admin Amount: 2 Tab (2 x 81 mg Tab) Ordered Dose: 162 mg Route: Oral Delgado q: NOW Start Date: 08/16/19 No administration times (back 96 hours, ahead 96 hours). ------haloperidoL (HALDOL) tablet 5 mg #[id number] Admin Amount: 1 Tab (1 x 5 mg Tab) Ordered Dose: 5 mg Route: Oral Delgado q: ONCE Start Date: 10/30/19 No administration times (back 96 hours, ahead 96 hours). ------cefTRIAXone (ROCEPHIN) 1 g in 0.9% sodium chloride (MBP/ADV) 50 m L M*#[id number] Admin Amount: 1 g Ordered Dose: 1 g Route: IntraVENous Freq: NOW Start Date: 12/05/19 Rate: 100 mL/hr Duration: 30 Minutes Administration linda es (back 96 hours, ahead 96 hours): 12/05/19: 1428NB -----0.9% sodium chloride infusion #[id number] Ordered Dose: 125 mL/hr Route: IntraVENous Freq: CONTINUOUS Start Date: 12/05/19 Rate: 125 mL/hr Duration: Administration times (back 96 hours, ahead 96 hours): 12/05/19: 1408NBLuisitoMaxwell donovan MR#: [id number] * Rm : 441-01Ht: 5' " Wt: 300 lb Code: Full Code Iso:Diagnosis:Encephalopathy acute [G93. 40]Allergies: No Known Allergies -------- Current as of: 12/05/19 1807 NB=New Bag --enoxaparin (LOVENOX) injection 40 mg #[id number] Admin Amount: 0.4 mL = 40 mg of 40 mg/0.4 mL Ordered Dose: 40 mg [place]: SubCUTAneous Freq: EVERY 24 HOURS Start Date: 12/05/19 Administration times (back 96 h ours, ahead 96 hours): 12/05/19: 209912/06/19: 209912/07/19: 209912/08/19: 2099 ---furosemide (LASIX) injection 20 mg #[id number] Admin Amount: 2 mL = 20 mg of 10 mg/mL Ordered Dose: 20 mg [place]: IntraVENous Freq: ONCE Start Date: 12/05/19 Administration [...] ormationFollow-up With:Ritika Canas MDDetails:Comments:Contact Info:[place] [address] [place] [phone] Name Value Range Interpretation Code Description Data Melani rce(s) Supporting Document(s ) ID Date Data Source [id number] 12/05/2019 04:36:09 PM EDT [facility] The history is provided by the [...] of morbidity or mortality cardiac cath at [facility] approx 6-8 months ag o [...] week Gets together: Once a week Attends latter day service: More than 4 times per year [...] QTC Calculation (Bezet) 515 ms Calculated P Sunray 40 degrees Calculat ed R Sunray 41 degrees Calculated T Sunray 147 degrees Diagnosis Sinus tachycardiaProb able left [...] Time: 12/05/19 12:38 PMResult Value Ref Range Plaza level 1.53 (HH) 0.6 - 1.2 MMOL/LLACTIC ACID Collection Time: 12/04 12:40 PMResult Value Ref Range Lactic acid 1.1 0.4 - 2.0 MMOL/LEKG:Sinus tachy cardia at 100 BPM, normal axis, nothing acute.Interpreted by Julio Manzo MD11:2 0 AM quality assurance monitor chassis reading shows sinus tachycardia at 100 BPM. [...] cardiac monitoring, CXR, and head CT. Will coordinator cardiopulmonary services ocephin, IV fluids, and oxygen. Will consult [...] Supporting Document(s ) ID Date Data Source [id number] 12/05/2019 04:05:06 PM EDT [facility] [address] [place] [address] [email or web address] CONSULT NOTEPatient: Maxwell Bray Se x: male [...] or sensory fuentes es. Lab significant of Plaza 1.53 and elevatedliver enzymes. Neurology consult ed for encephalopathy/drug adverse reaction.Past Medical History:Diagnosis Date Other unknown and unspecified cause of morbidity or mortality cardiac cath at [facility] approx 6-8 months ago Other unknown [...] QTC Calculation (Bezet) 515 ms Calculated P Sunray 40 degrees Calculated R Sunray 41 degrees Calculated T Sunray 147 degrees Diagnosis Sinus tachycardiaProbable left atrial [...] Time: 12/05/19 12:38 PMResult Value Ref Range Plaza level 1.53 (HH) 0.6 - 1.2 MMOL/LLACTIC [...] were created on an independent workstation. [facility] the examination was performed to [...] QTC Calculation (Bezet) 515 ms Calculated P Sunray 40 degrees Calculat ed R Sunray 41 degrees Calculated T Sunray 147 degrees Diagnosis Sinus tachycardiaProb able left [...] adalberto M79.2 Seizure disorder (HCC) G40.909 Spells [id number] Severe obesity (HCC) E66 .01 Depression F32.9 Anxiety F41.9 Bipolar disorder (HCC) F31.9 Depressive disorde r F32.9 Status post gastric bypass for obesity Z98.84 Morbid obesity (HCC) E66 .01 Mixed anxiety and depressive disorder F41.8 Vitamin D deficiency E55.9 Bipol ar disorder with severe depression (HCC) F31.4 Encephalopathy acute G93.40 Adve rse drug reaction, initial encounter T50.905A Spq-abxo-rodeyhy adverse reaction to me dication T88.7XXA49 year old male with pmh as stated above and now with AMS and genera lizedweakness - most likely secondary to lithium toxicity - ? Seizure.Plan: Mri Brain Ammonia Monitor lithium level daily EEG - 24 hrs Seizure precautionsPaulson Gerald Flores 2019 3:19 [id number] Name Value Range Interpretation Code Description Data Melani rce(s) Supporting Document(s ) ID Date Data Source [id number] 12/05/2019 03:37:45 PM EDT [facility] sbar-q given to Ev berger to floor Name Value Range Interpretation Code Description Data Melani rce(s) Supporting Document(s ) ID Date Data Source [id number] 12/05/2019 03:29:57 PM EDT [facility] sbar-q given to Sheri UGALDE on floor Name Value Range Interpretation Code Description Data Melani rce(s) Supporting Document(s ) ID Date Data Source [id number] 12/05/2019 03:28:02 PM EDT [facility] History & PhysicalBrian Anam Bray [...] h igh dose amytriptylene 200 mg nightly, Plaza, andVraylar 6 mg. :Plaza level on prior admission therapeutic. Patient's wifecontactedthis [...] of morbidity or mortality cardiac cath at [facility] approx 6-8 months ag o [...] week Gets together: Once a week Attends latter day service: More than 4 times per year [...] Calculati on (Bezet) 515 ms Calculated P Sunray 40 degrees Calculated R Sunray 41 degrees Elena culated T Sunray 147 degrees Diagnosis Sinus tachycardiaProbable left atrial [...] Time: 12/05/19 12:38 PMResult Value Ref Range Plaza level 1.53 (HH) 0.6 - 1.2 MMOL/LLACTIC ACID Collection Time: 12/04 12:40 PMResult Value Ref Range Lactic acid 1.1 0.4 - 2.0 MMOL/All lab results for the last 24 hours reviewed. Serun Plaza level toxicAssessment/PlanPrinci pal Problem: Adverse drug reaction, initial encounter (12/05/2019) LithiumActive Prob lems: Encephalopathy acute (12/05/2019) Dzo-dboo-xhzgmck adverse reaction to med ication (12/05/2019)Neuro, and psych evaluation, hydrationGeorge MD Corey Name Value Range Interpretation Code Description Data Melani rce(s) Supporting Document(s ) ID Date Data Source [id number] 12/06/2019 12:36:10 PM EDT [facility] Name Value Range Interpretation Description Data Sup porting Code Source(s) Document(s ) Service comment [facility] Bacteria [facility] - Good identified in [facility] Unspecified Hospital specimen by Culture ID Date Data Source [id number] 12/05/2019 04:18:26 PM EDT [facility] - [facility] Name Value Range Interpretation Description Data Sup porting Code Source(s) Document(s ) Color of Urine YEL Abnormal (applies [facility] - to non-numeric Good results) [facility] Appearance of CLEAR Abnormal (applies [facility] - Urine to non-numeric Good results) [facility] Specific gravity 1.033 1.003-1. Above high normal [facility] - of Urine by 030 Good Refractometry [facility] pH of Urine by 5.5 4.6-8.0 [facility] - Test strip Good [facility] Protein 30 mg/dL NEG Abnormal (applies [facility] - [Mass/volume] in to non-numeric Good Urine by Test results) [facility] Glucose NEG [facility] - [Mass/volume] in Good Urine by [facility] strip Ketones 15 mg/dL NEG Abnormal (applies [facility] - [Presence] in to non-numeric Good Urine by results) [facility] test [facility] strip Bilirubin.total NEG Abnormal (applies [facility] - [Presence] in to non-numeric Good Urine results) [facility] Hemoglobin NEG [facility] - [Presence] in Good Urine by Test [facility] Urobilinogen 1.0 0.2-1.0 [facility] - [Presence] in EU/dL Good Urine by [facility] Automated test [facility] strip Nitrite NEG [facility] - [Presence] in Good Urine by [facility] test Hospital strip Leukocyte NEG [facility] - esterase Good [Presence] in [facility] Urine by Hospital Automated test strip Leukocytes 0-5 [facility] - [Presence] in Good Urine sediment [facility] by [facility] microscopy Erythrocytes 0-2 [facility] - [#/area] in Good Urine sediment [facility] by [facility] high power field Epithelial cells 0-10 [facility] - [#/area] in Good Urine sediment [facility] by [facility] high power field Bacteria NONE Abnormal (applies [facility] - [Presence] in to non-numeric Good Urine sediment results) [facility] by [facility] microscopy ID Date Data Source [id number] 12/05/2019 03:26:35 PM EDT [facility] Name Value Range Interpretation Description Data Sup porting Code Source(s) Document(s ) Bilirubin NEG [facility] [Presence] in [facility] Urine by Hospital Confirmatory method ID Date Data Source [id number] 12/05/2019 02:22:27 PM EDT [facility] I spoke to Dr. Canas regarding Observation Status. Dr. Canas said patient will bemade In Patient Status today. Name Value Range Interpretation Code Description Data Melani rce(s) Supporting Document(s ) ID Date Data Source [id number] 12/05/2019 02:03:27 PM EDT [facility] SW/Psych Screener attempted to meet with Pt for MH evaluation. Pt was foundlying on stretcher with his eyes open, staring at the wall. Director Private knows this Ptfrom previous admission to the medical floor. When ask ed if Pt rememberedwriter, Pt appeared confused, but said he did. Pt stated he fell today, doesn'tremember how he was brought to the hospital. Pt appeared to be searching for hiswords and was having difficulty speaking. Pt unclear of where he is, stating"[place]" when asked where he was and "[place]" when asked what month it was. Whenasked if Pt was exhibiting any feelings of S/I, H/I or A/V Hallucinatio ns, Ptresponded with, "No," and confirmed he has been compliant with his psychiatricm edications. Director Private conferred with ER Attending, Dr. Manzo, who states that Ptwi ll most likely be medically admitted at this time.Krystina Centeno LM, CASAC-2 Name Value Range Interpretation Code Description Data Melani rce(s) Supporting Document(s ) ID Date Data Source [id number] 12/05/2019 12:53:37 PM EDT [facility] CT HEAD W/O CONTRASTPRIOR: Multiple: Mos [...] Supporting Document(s ) ID Date Data Source [id number] 12/05/2019 01:31:37 PM EDT [facility] Name Value Range Interpretation Description Data Sup porting Code Source(s) Document(s ) Lactate 1.1 0.4-2.0 [facility] - Good [Moles/volu MMOL/L [facility]] in Hospital Serum or Plasma ID Date Data Source [id number] 12/10/2019 05:19:22 AM EDT [facility] Name Value Range Interpretation Description Data Sup porting Code Source(s) Document(s ) Service comment [facility] Bacteria [facility] - Good identified in [facility] Unspecified Hospital specimen by Culture ID Date Data Source [id number] 12/05/2019 02:14:34 PM EDT [facility] Name Value Range Interpretation Description Data Sup porting Code Source(s) Document(s ) Plaza 1.53 0.6-1.2 Above upper panic [facility] - Good [Moles/volu MMOL/L limits [facility]] in Hospital Serum or Plasma CALLED TO AND READ BACK BYSUSI GAMBLE 1414 12/05/19 [facility] MARY ID Date Data Source [id number] 12/05/2019 01:31:37 PM EDT [facility] Name Value Range Interpretation Description Data Sup porting Code Source(s) Document(s ) Troponin 0.00-0.05 [facility] - Good I.cardiac [facility] [Mass/volume Hospital ] in Serum or Plasma [...] to 1.50 ng/mL ID Date Data Source [id number] 12/05/2019 01:31:37 PM EDT [facility] Value Range Interpretation Description Data Sup porting Code Source(s) Document(s ) Sodium 134 136-145 Below low normal [facility] - Good [Moles/volume] mmol/L [facility] in Serum or Hospital Plasma Potassium 3.5 3.5-5.1 [facility] - Good [Moles/volume] mmol/L [facility] in Serum or Hospital Plasma Chloride 104 98-107 [facility] - Good [Moles/volume] mmol/L [facility] in Serum or Hospital Plasma Carbon 26 21-32 [facility] - Good dioxide, total mmol/L [facility] [Moles/volume] Hospital in Serum or Plasma Anion gap in 7 mmol/L 10-20 Below low normal [facility] - Go od Serum or [facility] Plasma Hospital Glucose 127 74-106 Above high normal [facility] - Good [Mass/volume] mg/dL [facility] in Serum or Hospital Plasma Urea nitrogen 21 mg/dL 7-18 Above high normal [facility] - Good [Mass/volume] [facility] in Serum or Hospital Plasma Creatinine 0.94 0.70-1.3 [facility] - Good [Mass/volume] mg/dL 0 [facility] in Serum or Hospital Plasma Glomerular >60 [facility] - Good filtration [facility] rate/1.73 sq M Hospital predicted among blacks [Volume Rate/Area] in Serum or Plasma by Creatinine-bas ed formula (MDRD) Glomerular >60 [facility] - Good filtration [facility] rate/1.73 sq M Hospital predicted among non-blacks [Volume Rate/Area] in Serum or Plasma by Creatinine-bas ed formula (MDRD) (NOTE)Estimated GFR is calculated using the Modification of Diet in RenalDisease (MDRD) Study equation, reported for both Americans(GFRAA) and non- Americans (GFRNA), and normalized to 1.7 0d0fsiv surface area. The physician must decide which [...] normal [facility] - Good Serum or Plasma [facility] Bilirubin.total 0.9 mg/dL 0.2-1.0 [facility] - Good [Mass/volume] in Serum or [facility] Plasma Alanine aminotransferase 34 U/L 13-61 [facility] - Good [Enzymatic activity/volume] [facility] in Serum or Plasma Aspartate aminotransferase 47 U/L 15-37 Above high [facility] - Good [Enzymatic activity/volume] normal [facility] in Serum or Plasma by With P-5'-P Alkaline phosphatase 171 U/L 45-117 Above high [facility] - Good [Enzymatic activity/volume] normal [facility] in Serum or Plasma Protein [Mass/volume] in 7.5 g/dL 6.4-8.2 [facility] - Good Serum or Plasma [facility] Albumin [Mass/volume] in 3.8 g/dL 3.5-4.7 [facility] - Good Serum or Plasma by [facility] Bromocresol purple (BCP) dye binding method Globulin [Mass/volume] in 3.7 g/dL 1.7-4.7 [facility] - Good Serum by calculation [facility] Albumin/Globulin [Mass 1.0 0.7-2.8 [facility] - Good Ratio] in Serum or Plasma [facility] ID Date Data Source [id number] 12/05/2019 01:31:37 PM EDT [facility] Name Value Range Interpretation Description Data Sup porting Code Source(s) Document(s ) Magnesium 2.9 mg/dL 1.6-2.6 Above high normal [facility] - Good [Mass/volume] [facility] in Serum or Hospital Plasma ID Date Data Source [id number] 12/05/2019 01:20:04 PM EDT [facility] Name Value Range Interpretation Description Data Sup porting Code Source(s) Document(s ) Prothrombin 10.6 sec 9.4-11.1 [facility] - Good time (PT) [facility] INR in 1.0 0.8-1.2 [facility] - Good Platelet poor [facility] plasma by [facility] Coagulation assay ID Date Data Source [id number] 12/05/2019 01:07:21 PM EDT [facility] Name Value Range Interpretation Description Data Sup porting Code Source(s) Document(s ) Leukocytes 12.4 4.8-10.6 Above high normal [facility] - [#/volume] in K/uL Good Blood by [facility] Automated count [facility] Erythrocytes 5.03 4.70-6.0 [facility] - [#/volume] in M/uL 0 Good Blood by [facility] Hemoglobin 15.4 14.0-18. [facility] - [Mass/volume] in g/dL 0 Good Blood [facility] Hematocrit 45.8 % 42.0-52. [facility] - [Volume 0 Good Fraction] of [facility] Blood by [facility] Automated count Erythrocyte mean 91.1 FL 81.0-94. [facility] - corpuscular 0 Good volume [Entitic [facility] volume] by [facility] Automated count Erythrocyte mean 30.6 PG 27.0-35. [facility] - corpuscular 0 Good hemoglobin [facility] [Entitic mass] Hospital by Automated count Erythrocyte mean 33.6 30.7-37. [facility] - corpuscular g/dL 3 Good hemoglobin [facility] [Mass/volume] by Automated count Erythrocyte 12.9 % 11.5-14. [facility] - distribution 0 Good width [Ratio] by [facility] Automated count Hospital Platelets 164 K/uL 130-400 [facility] - [#/volume] in [facility] Blood by [facility] Automated count [facility] Platelet mean 9.5 FL 9.2-11.8 [facility] - volume [Entitic Good volume] in Blood [facility] by Automated Hospital count Nucleated 0.0 PER 0 [facility] - erythrocytes/100 100 WBC Good leukocytes [facility] [Ratio] in Blood [facility] Nucleated 0.00 0.0-0.01 [facility] - erythrocytes K/uL Good [#/volume] in [facility] Segmented 80 % 48.0-72. Above high normal [facility] - neutrophils/100 0 [facility] leukocytes in [facility] Lymphocytes/100 8 % 18.0-40. Below low normal [facility] - leukocytes in 0 [facility] Monocytes/100 10 % 2.0-12.0 [facility] - leukocytes in [facility] Eosinophils/100 1 % 0.0-7.0 [facility] - leukocytes in [facility] Basophils/100 0 % 0.0-3.0 [facility] - leukocytes in [facility] Immature 0 % 0-0.5 [facility] - granulocytes/100 Good leukocytes in [facility] by Hospital Automated count Segmented 10.0 2.3-7.6 Above high normal [facility] - neutrophils K/UL Good [#/volume] in [facility] Lymphocytes 1.0 K/UL 0.9-4.2 [facility] - [#/volume] in [facility] Monocytes 1.2 K/UL 0.1-1.7 [facility] - [#/volume] in [facility] Eosinophils 0.1 K/UL 0.0-1.0 [facility] - [#/volume] in [facility] Basophils 0.0 K/UL 0.0-0.4 [facility] - [#/volume] in [facility] Immature 0.1 K/UL 0.0-0.17 [facility] - granulocytes Good [#/volume] in [facility] by Hospital Automated count Differential [facility] - cell count Good method - Blood [facility] ID Date Data Source [id number] 12/10/2019 05:19:23 AM EDT [facility] Name Value Range Interpretation Description Data Sup porting Code Source(s) Document(s ) Service comment [facility] Bacteria [facility] identified in [facility] Hospital specimen by Culture ID Date Data Source [id number] 12/05/2019 12:24:35 PM EDT [facility] PELVIS one view.History: TraumaThe study is suboptimal due to the patient's body habitus.There is no evidence of fracture , dislocation, subluxation, bone erosion orarthritis.IMPRESSION: Grossly normal s tudy. Signing date/time: 12/05/2019 12:24 PMSigned by: CURTIS VARMA Name Value Range Interpretation Code Description Data Melani rce(s) Supporting Document(s ) ID Date Data Source [id number] 12/05/2019 12:23:11 PM EDT [facility] CHEST 1 view (s)HISTORY: Chest pain.COMP [...] Supporting Document(s ) ID Date Data Source [id number] 12/05/2019 11:34:39 AM EDT [facility] BIBA for fall in the middle of the night while going to bathroomC/p left hip pain Name Value Range Interpretation Code Description Data Melani rce(s) Supporting Document(s ) ID Date Data Source [id number] 12/05/2019 11:21:27 AM EDT [facility] Please enter the current weight for this patient in [facility]. Thank you. Name Value Range Interpretation Code Description Data Melani rce(s) Supporting Document(s ) ID Date Data Source [id number] 11/23/2019 02:02:47 PM EDT [facility] Discharge SummaryPatient: Maxwell mackey Sex: male [...] E66.01ICD-9-CM: 278.01 07/19/2018 - Present Spells ICD-10-CM: [id number]: IMO00 01 04/08/2016 - Present Seizure disorder [...] tr eated with parenteral hydration with benefit x2ituavagltiiyjujrw responses. Of note i s fact that [...] Supporting Document(s ) ID Date Data Source [id number] 11/03/2019 09:41:35 PM EDT [facility] Verbal shift change report given to , RN (oncoming nurse) by Scott Beverly RN (offgoing nurse). Report included the fo llowing information SBAR, Kardex,Intake/Output, MAR and Recent Res ults. Name Value Range Interpretation Code Description Data [facility](s) Supporting Document(s ) ID Date Data Source [id number] 11/03/2019 03:34:07 PM EDT [facility] Per psych note, CM to confirm patient ap pt with psychiatristCall to Dr Mateo Méndez office # [phone], office [facility] ent aware of # to call to make his own appt, psychiatry info placed on AVs [facility] ent states his will be coming [...] Network: Lives with Spouse, Own Home( [place] ,[phone])Confirm Follow Up Transport: FamilyThe Patient and/or Patient [...] Description Data [facility](s) Supporting Document(s ) ID Date Data Source [id number] 11/03/2019 02:45:48 PM EDT [facility] PHYSICAL THERAPY TREATMENTPatient: Maxwell Bray (49 [...] Supporting Document(s ) ID Date Data Source [id number] 11/03/2019 01:09:08 PM EDT [facility] General Daily Progress NoteAdmit Date: [...] past 8 hrs: BP Temp Pulse Resp LfO07011/03/19 0752 115 /76 97.6 F (36.4 C) [...] Supporting Document(s ) ID Date Data Source [id number] 11/03/2019 10:52:30 AM EDT [facility] S/O patient has seen for follow up via V ideo . He is doing much better. Hedenies any auditory or visual hallucination any mor eHe has no suicidal or homicidal thoughtsHe reports that he sees Dr. marie every ot her weeksPt wants to follow up with Dr. Marie after dischargePlan continue on a ll current psychotropic medications Requesting vocational case manager to confirm his a ppointment with Dr. mariebefore he discharged Please re consult if n eeded Name Value Range Interpretation Code Description Data [facility] rce(s) Supporting Document(s ) ID Date Data Source [id number] 11/03/2019 07:12:34 AM EDT [facility] Bedside and Verbal shift change report g iven to Meño Rose, RN (oncomingnurse) by June Ochoa RN (offgoing nurse). Repor t included the followinginformation SBAR, Kardex, Intake/Output, MAR, Recent Resul ts and Med Rec Status. Name Value Range Interpretation Code Description Data [facility] Document(s ) ID Date Data Source [id number] 11/02/2019 11:18:25 PM EDT [facility] Problem: Falls - Risk ofGoal: *Absence [...] Harsh Scale and appropriate interventio ns in thememorial health systemsheet.Outcome: Progressing Towards GoalNote: Pressure Injury Interv entions:Sensory [...] Name Value Range Interpretation Code Description Data [facility] Supporting Document(s ) ID Date Data Source [id number] 11/02/2019 07:34:02 PM EDT [facility] Bedside shift change report given to GILLIAN KEATING (oncoming nurse) by Meño Rose(offgoing nurse). Report included the following information SBAR, Kardex andIntake/Output. Name Value Range Interpretation Code Description Data [facility](s) Supporting Document(s ) ID Date Data Source [id number] 11/02/2019 05:14:50 PM EDT [facility] Telehealth Progress NotePursuant to the emergency [...] [] Telephone [x] VideoconferenceDate: 11/02/2019Accodarian Franny mber: [id number]: Maxwell Robin & M PROGRESS NOTE:Coordinated treatment team rounds conducted with psychiatrist, patient, nursesand/or vp digital marketing social media and crm present ; dis cussions held with vocational case manager and/or familymembers; Chart reviewed in full in cluding community resource consultant notes, ancillary staffnotes, vitals and labs in [facility] EMR reviewed in full.SUBJECTIVE: Pt seen for first time on Video with my SW Mendy And RN , hereports less hallucinations , as they are still there in the morning But overall better since got back on vraylar told me was scheduled for ECT at [facility] but due to elective , [...] past 8 hrs: Temp Pulse Resp BP OgJ234/20 1546 98.3 F (36.8 C) 84 18 [...] (LOVENOX) injection 40 mg 40 mg SubCUTAneous [id number] Medications:C urrent Facility-Administered MedicationsMedication Dose Route Frequen [...] 40 mL 5-40 mL IntraVENous Q8H enoxaparin (ERNAN ENOX) injection 40 mg 40 mg SubCUTAneous [id number]/PLAN:Continue current kalie atment as pt is stabalizingPatient [...] Supporting Document(s ) ID Date Data Source [id number] 11/02/2019 03:02:33 PM EDT [facility] General Daily Progress NoteAdmit Date: Hospital [...] (LOVENOX) injection 40 mg 40 mg SubCUTAneous [id number]:Patient Vitals for the past 8 hrs: BP [...] contrast. Sagittal and coronal reconstruction was performed.Uti Hemoteq history department chair algorithm the examination was performed to optimizeimaging [...] Supporting Document(s ) ID Date Data Source [id number] 11/02/2019 07:48:14 AM EDT [facility] Verbal shift change report given to Jody wells RN (oncoming nurse) by Juliane UGALDE (offgoing nurse). Report included the following information SBAR,Kardex, Intake/Output, MAR and Recent Results Name Value Range Interpretation Code Description Data Melani rce(s) Supporting Document(s ) ID Date Data Source [id number] 11/02/2019 05:41:52 AM EDT [facility] Patient AOX3 with periodic confusion. In bed watching TV. All med's given asordered by MD, tolerated well. Fall precaution m easures reinforced. Call bellwithin reach, bed in low position. Has urinal and comm ode at bedside. Voices nocomplaint at this time. Will continue to monitor pt. Name Value Range Interpretation Code Description Data Melani rce(s) Supporting Document(s ) ID Date Data Source [id number] 11/01/2019 08:46:30 PM EDT [facility] Problem: Falls - Risk ofGoal: *Absence [...] Name Value Range Interpretation Code Description Data [facility] Supporting Document(s ) ID Date Data Source [id number] 11/01/2019 08:00:09 PM EDT [facility] Verbal shift change report given to Ly vitale RN (oncoming nurse) by SUSI Palacio (offgoing nurse). Report included the following information SBAR,Intake/Output, MAR and Recent Results. Name Value Range Interpretation Code Description Data [facility] rce(s) Supporting Document(s ) ID Date Data Source [id number] 11/01/2019 03:49:42 PM EDT [facility] Adult Progress NoteDate: 11/01/2019Account Number: [id number]: Maxwell Mendieta TrimbleDiagnosis: History of mood and [...] D deficiency 09/04/2019 Anxiety 0 Bipolar disorder ([facility]) 07/21/2019 Depressive disorder 07/21/2019 Status p ost gastric bypass for obesity 07/21/2019 Morbid obesity (HCC) 07/21/2019 Severe obesity ([facility]) 07/19/2018 Spells 04/08/2016 Seizure disorder ([facility]) 04/30/2014 Insom kacey 11/04/2013 H/O gastric [...] found.Assessment/Plan:Active Problems: Bipolar disorder with severe depression ([facility]) (10/29/2019)Psychotherapy (type and freque ncy) supportiveConsultation psychiatryMedications:Current [...] (LOVENOX) injection 40 mg 40 mg SubCUTAneous J79RUhj following information was reviewed and discussed: Patient [...] Supporting Document(s ) ID Date Data Source [id number] 11/01/2019 02:42:08 PM EDT [facility] General Daily Progress NoteAdmit Date: [...] past 8 hrs: BP Temp Pulse Resp UeI14811/01/19 0715 101/67 98 F (36.7 C) 70 [...] Sagittal and coronal reconstr uction was performed.Utilizing history department chair algorithm the examination was performed to optimizeimaging [...] Prominent interstitial markings arefelt to reflect 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 Repeat PA andlateral views the chest are advised i f there is clinical concern for pneumoniaor congestive failure.Assessment:Active Pro blems: Bipolar disorder with severe depression (HCC) (10/29/2019)Plan:Marco g status Name Value Range Interpretation Code Description Data Melani rce(s) Supporting Document(s ) ID Date Data Source [id number] 11/01/2019 07:08:12 AM EDT [facility] Verbal shift change report given to Chandrakant Albert RN (oncoming nurse) Colin Hoffmann RN (offgoing nurse). Report incl uded the following informationSBAR, Kardex, Intake/Output, MAR and Recent Results. Name Value Range Interpretation Code Description Data [facility] rce(s) Supporting Document(s ) ID Date Data Source [id number] 10/31/2019 07:59:03 PM EDT [facility] Verbal shift change report given to Shreya adrian RN (oncoming nurse) by SUSI Palacio (offgoing nurse). Report included the following information SBAR,Kardex, Intake/Output, MAR and Recent Results. Name Value Range Interpretation Code Description Data [facility](s) Supporting Document(s ) ID Date Data Source [id number] 10/31/2019 05:09:32 PM EDT [facility] Telehealth ConsultationPursuant to the e [...] [] Telephone [x] VideoconferenceSubjective:Patient: Maxwell BrayMRN #: [id number]: [id number]: 49 y.o. Sex: maleAdm it Date: 10/29/2019Attending: [...] week Gets together: Once a week Attends latter day service: More than 4 times per year [...] morbidity or mortal ity cardiac cath at [facility] approx 6-8 months ago Other [...] past 8 hrs: BP Temp Pulse Resp LmG112/02/11 0754 120/60 97.2 F (36.2 C) 70 20 95 %MENTA L STATUS EXAM:FINDINGS WITHIN NORMAL LIMITS (WNL) UNLESS OTHERWISE STATED BELOW:Sens orium TTPF0Danajcghu Well relatedAppearance: OverweightMotor Behavior: Not examined Speech: [...] Supporting Document(s ) ID Date Data Source [id number] 10/31/2019 04:37:18 PM EDT [facility] [place] [address] [place], [place] [address]VKFJZQL: MAXWELL BRAYMRN: [id number]: [id number]#: [id number] DATE: 10/29/2019 CONSULTATIONHISTORY OF PRESENT ILLNESS: The [...] and Klonopin.PAST MEDICAL HISTORY: Cardiac cath at [facility] six to eight months ago, [...] Jose AGUIRRE, MDDD: 10/30/2019 14:44:41/BR /[id number] / [id number] Name Value Range Interpretation Code Description Data Melani rce(s) Supporting Document(s ) ID Date Data Source [id number] 10/31/2019 01:47:36 PM EDT [facility] General Daily Progress NoteAdmit Date: [...] Supporting Document(s ) ID Date Data Source [id number] 10/31/2019 12:59:26 PM EDT [facility] physical Therapy TREATMENTPatient: Maxwell Bray (49 [...] Supporting Document(s ) ID Date Data Source [id number] 10/31/2019 07:10:46 AM EDT [facility] Bedside and Verbal shift change report g iven to Samy UGALDE (oncoming nurse)by Cristofer Valenzuela RN (offgoing nurse). Repo rt included the following information SBAR, Kardex, MARand Recent Results. Name Value Range Interpretation Code Description Data [facility] rce(s) Supporting Document(s ) ID Date Data Source [id number] 10/30/2019 11:27:14 PM EDT [facility] Problem: Falls - Risk ofGoal: *Absence [...] Supporting Document(s ) ID Date Data Source [id number] 10/30/2019 08:09:55 PM EDT [facility] Susi Garcia called as pt has [...] ordered as non formulary also At [facility] Name Value Range Interpretation Code Description Data [facility] rce(s) Supporting Document(s ) ID Date Data Source [id number] 10/30/2019 08:06:30 PM EDT [facility] Telephoned Dr. Oc tompkins pt's c/o new sy mptoms of hallucinations. Orderedreceived, relayed to RN, SUSI Marroquin on night monitor Name Value Range Interpretation Code Description Data [facility] Supporting Document(s ) ID Date Data Source [id number] 10/30/2019 08:01:35 PM EDT [facility] Verbal shift change report given to Cecilia wells (oncoming nurse) by Samy Albert RN (offgoing nurse). Report included the fo llowing information SBAR, ProcedureSummary, Intake/Output, MAR and Recent Results. Name Value Range Interpretation Code Description Data [facility] Supporting Document(s ) ID Date Data Source [id number] 10/30/2019 02:58:51 PM EDT [facility] Problem: Mobility Impaired (Adult and Pe [...] of morbidity or mortality cardiac cath at [facility] approx 6-8 months ago Other unknown [...] Home: NoneCritical Behavior:Neurologic State: AlertOrientation Level: Oriented C3Idnvjurhz: Appropriate for age attention/concentrationSafety/Judgement: Awareness of environmentSkin:Strength:Strength: [...] Supporting Document(s ) ID Date Data Source [id number] 10/30/2019 02:50:37 PM EDT [facility] Telehealth ConsultationPursuant to the e mergency [...] [] Telephone [] VideoconferenceSubjective:Patient: Maxwell BrayMRN #: [id number]: [id number]: 49 y.o. Sex: maleAdm it Date: 10/29/2019Attending: [...] Supporting Document(s ) ID Date Data Source [id number] 10/30/2019 02:06:26 PM EDT [facility] Care Management InterventionsPCP Verifie d by CM: YesPalliative Care Criteria Met (RRAT>21 & CHF Dx)?: NoMode of Transport at Discharge: Other (see comment)(family)Transition of Care Consu lt (CM Consult): Discharge PlanningPhysical Therapy Consult: NoOccupational Therapy Consult: NoSpeech Therapy Consult: NoCurrent Support Network: Lives with Spouse, Own Home( [place] [phone],[phone])Confirm Foll ow Up Transport: FamilyThe Patient and/or Patient Police Records Clerk was Provided with a Choice of Providerand [...] home with his , 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 Patient normally works (pre-covid) and drives. CM dept roleexplained, patient is currently denying any HC or rehab needs and states hiswife will drive him home upon DC. PT eval is ordered and pending. CM dept laila lfollow if patient has any PT needs.CASE MANAGEMENT PSYCHOSOCIAL ASSESSMENTMaxwell Bray Admission Date: 10/29/2019MRN: [id number] of : 1970Current date: 10/30/2019DISCHARGE PLAN: homePatient Info rmation:Patients Preferred Name: brianPatient Arrived Via: StretcherTransferred from a [facility] facility: NoInformation Obtained From: PatientPatient Objects [...] Ritika Canas MDAdmitting Provider: Cristi Canas MDSENTARA PRINCESS [facility]NE [facility] INCHLAKELAND REG[facility] PRINTING ENGINEER: naPayor: Payor: [facility] / Plan: [facility] HE[facility]AN /Product Type: HMO [...] solving and planning: Notes:Adeq uate coping skills: Notes:Alevism/Cultural barriers: Notes:If unable to assess or n ot applicable: Notes:Suicide Assessment:Primary Diagnosis or Primary Complaint of an Emotional Behavior Disorder: NoPatient is Currently Experiencing Depr ession: NoSuicidal Ideation/Attempts: NoHomicidal Ideation/Attempts: NoAlcohol /Drug Intoxication: NoHallucinations/Delusions: NoPending, A ctive, or Temporary Mcfp Orders: NoAggressive/Inappropriate Behavior: NoR eadmit Risk:Support Systems: Family member(s)Advanced Care Planning:Confirm Advance Directive: NoneDiscussed with the patient and all questions fully answered . He will call me ifany problems arise. Name Value Range Interpretation Code Description Data Melani rce(s) Supporting Document(s ) ID Date Data Source [id number] 10/30/2019 12:38:13 PM EDT [facility] General Daily Progress NoteAdmit Date: Hospital day: .tdSubjective:Patient markedly improved this am, speech now no rmal. Denies possibleinadvertent overdose of chronic meds. Accepting of psych consult . PT toevaluate. Claims symptoms of mild nausea. Meds reviewed claims to be takin gElavil G 150 mg HS ,Klonopin 1 mg twice a day, Plaza 300 twice daily, Vraylar3 m g dailyCurrent [...] past 8 hrs: BP Temp Pulse Resp QsD24910/30/19 0727 (!) 130/96 98 F (36.7 C) [...] Name Value Range Interpretation Code Description Data [facility] rce(s) Supporting Document(s ) ID Date Data Source [id number] 10/30/2019 07:52:05 AM EDT [facility] Verbal shift change report given to Chandrakant rosa RN (oncoming nurse) Tavares UGALDE (offgoing nurse). Report included the [facility] information SBAR,Kardex, Procedure Summary, Intake/Output, MAR and Recent R esults. Name Value Range Interpretation Code Description Data [facility] rce(s) Supporting Document(s ) ID Date Data Source [id number] 10/30/2019 06:40:05 AM EDT [facility] Pt. AOX3, periodic confusion. Commode an d urinal at bedside. Seizure and fallprecaution measures in place. Voice s no complaint during shift . Name Value Range Interpretation Code Description Data [facility] rce(s) Supporting Document(s ) ID Date Data Source [id number] 10/30/2019 07:29:12 AM EDT [facility] Name Value Range Interpretation Description Data Sup porting Code Source(s) Document(s ) Sodium 139 136-145 [facility] - [facility] [Moles/volume] mmol/L [facility] in Serum or Hospital Plasma Potassium 3.6 3.5-5.1 [facility] - [facility] [Moles/volume] mmol/L [facility] in Serum or Hospital Plasma Chloride 110 98-107 Above high normal [facility] - [facility] [Moles/volume] mmol/L [facility] in Serum or Hospital Plasma Carbon 24 21-32 [facility] - Good dioxide, total mmol/L [facility] [Moles/volume] Hospital in Serum or Plasma Anion gap in 9 mmol/L 10-20 Below low normal [facility] - Go od Serum or [facility] Plasma Hospital Glucose 96 mg/dL 74-106 [facility] - [facility] [Mass/volume] [facility] in Serum or Hospital Plasma Urea nitrogen 10 mg/dL 7-18 [facility] - [facility] [Mass/volume] [facility] in Serum or Hospital Plasma Creatinine 0.81 0.70-1.3 [facility] - [facility] [Mass/volume] mg/dL 0 [facility] in Serum or Hospital Plasma Glomerular >60 [facility] - Good filtration [facility] rate/1.73 sq M Hospital predicted among blacks [Volume Rate/Area] in Serum or Plasma by Creatinine-bas ed formula (MDRD) Glomerular >60 [facility] - Good filtration [facility] rate/1.73 sq M Hospital predicted among non-blacks [Volume Rate/Area] in Serum or Plasma by Creatinine-bas ed formula (MDRD) Calcium 8.2 8.5-10.1 Below low normal [facility] - Good [Mass/volume] mg/dL [facility] in Serum or Hospital Plasma ID Date Data Source [id number] 10/30/2019 07:05:07 AM EDT [facility] Name Value Range Interpretation Description Data Sup porting Code Source(s) Document(s ) Leukocytes 4.8 K/uL 4.8-10.6 [facility] - [#/volume] in Good Blood by [facility]ated [facility] Erythrocytes 4.59 4.70-6.0 Below low normal [facility] - [#/volume] in M/uL 0 Good Blood by [facility]ated [facility] Hemoglobin 14.0 14.0-18. [facility] - [Mass/volume] in g/dL 0 Good Blood [facility] Hematocrit 42.7 % 42.0-52. [facility] - [Volume 0 Good Fraction] of [facility] Blood by Hospital Automated count Erythrocyte mean 93.0 FL 81.0-94. [facility] - corpuscular 0 Good volume [Entitic [facility] volume] by Hospital Automated count Erythrocyte mean 30.5 PG 27.0-35. [facility] - corpuscular 0 Good hemoglobin [facility] [Entitic mass] Hospital by Automated count Erythrocyte mean 32.8 30.7-37. [facility] - corpuscular g/dL 3 Good hemoglobin [facility] [Mass/volume] by Automated count Erythrocyte 13.3 % 11.5-14. [facility] - distribution 0 Good width [Ratio] by [facility] Automated count Hospital Platelets 159 K/uL 130-400 [facility] - [#/volume] in Good Blood by [facility] Automated count Hospital Platelet mean 8.6 FL 9.2-11.8 Below low normal [facility] - volume [Entitic Good volume] in Blood [facility] by Automated Hospital count Nucleated 0.0 PER 0 [facility] - erythrocytes/100 100 WBC Good leukocytes [facility] [Ratio] in Blood [facility] Nucleated 0.00 0.0-0.01 [facility] - erythrocytes K/uL Good [#/volume] in [facility] Segmented 54 % 48.0-72. [facility] - neutrophils/100 0 Good leukocytes in [facility] Lymphocytes/100 32 % 18.0-40. [facility] - leukocytes in 0 [facility] Blood [facility] Monocytes/100 9 % 2.0-12.0 [facility] - leukocytes in [facility] Eosinophils/100 5 % 0.0-7.0 [facility] - leukocytes in [facility] Basophils/100 1 % 0.0-3.0 [facility] - leukocytes in [facility] Immature 0 % 0-0.5 [facility] - granulocytes/100 Good leukocytes in [facility] Automated count Segmented 2.6 K/UL 2.3-7.6 [facility] - neutrophils Good [#/volume] in [facility] Lymphocytes 1.5 K/UL 0.9-4.2 [facility] - [#/volume] in [facility] Monocytes 0.4 K/UL 0.1-1.7 [facility] - [#/volume] in [facility] Eosinophils 0.2 K/UL 0.0-1.0 [facility] - [#/volume] in [facility] Basophils 0.0 K/UL 0.0-0.4 [facility] - [#/volume] in [facility] Immature 0.0 K/UL 0.0-0.17 [facility] - granulocytes Good [#/volume] in [facility] Automated count Differential [facility] - cell count [facility] method - Blood [facility] ID Date Data Source [id number] 10/29/2019 07:40:21 PM EDT BSS [facility] Verbal shift change report given to Wai rogers RN(oncoming nurse) by Elizabeth Meehan RN (offgoing nurse). Report included the fo llowing information SBAR, Kardex, EDSummary, Intake/Output, MAR and Recent Results. Name Value Range Interpretation Code Description Data Melani rce(s) Supporting Document(s ) ID Date Data Source [id number] 10/30/2019 06:54:22 PM EDT [facility] Name Value Range Interpretation Description Data Sup porting Code Source(s) Document(s ) Color of Urine YEL [facility] - [facility] Appearance of CLEAR [facility] - Urine [facility] Specific gravity 1.015 1.003-1. [facility] - of Urine by 030 Good Refractometry [facility] pH of Urine by 6.0 4.6-8.0 [facility] - Test strip [facility] Protein NEG [facility] - [Mass/volume] in Good Urine by Test [facility] Glucose NEG [facility] - [Mass/volume] in Good Urine by [facility] Automated test [facility] strip Ketones NEG [facility] - [Presence] in Good Urine by [facility] Automated test [facility] strip Bilirubin.total NEG [facility] - [Presence] in Good Urine [facility] Hemoglobin NEG [facility] - [Presence] in Good Urine by [facility] Urobilinogen 1.0 0.2-1.0 [facility] - [Presence] in EU/dL Good Urine by [facility] Automated test Hospital strip Nitrite NEG [facility] - [Presence] in Good Urine by [facility] Automated test [facility] strip Leukocyte NEG [facility] - esterase Good [Presence] in [facility] Urine by Hospital Automated test strip ID Date Data Source [id number] 10/29/2019 06:14:12 PM EDT [facility] Spoke with to clarify meds..correct doses obtained Name Value Range Interpretation Code Description Data Melani rce(s) Supporting Document(s ) ID Date Data Source [id number] 10/29/2019 06:01:22 PM EDT [facility] Pt unsure of dose of Vraylar will call w berta Name Value Range Interpretation Code Description Data Melani rce(s) Supporting Document(s ) ID Date Data Source [id number] 10/29/2019 03:56:40 PM EDT [facility] [id number] [facility] [address] [place] [address] [place] [address] [phone]/12/12 Maxwell Bray (Male) [id number] ES I 2 ED Dispo:ADMIT Chief Complaint: Dysarthria, Lethargy Diagnosis: Altered mental status, unspecified altered mental statu s type [] Bipolar disorder with severe depression (HCC) [] Current Providers: Att ending: Cole Ernandez; Cristi Canas Consulting Provider: Cristi Canas Primary Nurse: Kristy Moss Tech: HERMANN GonzalesN: [id number] [employer] [phone] - Bs h[facility] MrnMRN: [id number] [employer] [phone] - [facility]sh[facility] [employer] Age Sex 1970 AGE 49 SEX Male Primary Care Provider: Ritika Canas MD Ljqshnunn: (No Kn own Allergies)Date Reviewed: 10/29/2019Reviewed by: Ritika Canas MD - Review CompleteED Provider Notes: [facility]: [id number]: Cristobal Ernandez MDService: -Author Type: PhysicianFiled: 10/29/19 [...] of morbidity or mortality cardiac cath at [facility] approx 6-8 months ago Other [...] week Gets together: Once a week Attends latter day service: More than 4 times per year [...] QTC Calculation (Bezet) 446 ms Calculated P Sunray 53 degrees Calc ulated R Sunray 68 degrees Calculated T Sunray 0 degrees Diagnosis Sinus tachycardiaProlonged AL intervalNo nspecific intraventricular conduction delayCBC WITH AUTOMATED [...] Time: 10/29/19 10:45 AMResult Value Ref Range Plaza level <0.20 (L) 0.6 - 1.2 MMOL/L [...] contrast. Sagittal and coronalreconstruction was performed. Utilizing history department chair algorithm theexaminationwas performed to optimize imaging quality [...] status, unspecified altered menta l status type [id number] condition at time of disposition: StableI have [...] d thediagnostic studies, unless otherwise noted.+ED Orders [id number] CBC WITH AUTOMATED DIFF [# [id number]] Priority: STAT Class: ER Collect Standing Order Information Remaining Occurrences:0 /1 Interval:ONE TIME Last released:10/29/2019 Released orders: SunOctober 29, 2019 11:02 AM by: CRISTOBAL ERNANDEZ [id number] METABOLIC PANEL, COMPREHENSIVE [#[id number]] Bridgette ority: STAT Class: ER Collect Standing Order Information Remaining Occurrences:0/1 Inter haile:ONE TIME Last released:10/29/2019 Released orders: SunOctober 29, 2019 11:02 AM by: CRISTOBAL WADE [id number] PROTHROMBIN TIME + INR [#[id number]] Priority: STAT Class: E R Collect Standing Order Information Remaining Occurrences:0/1 Interval:ONE TI ME Last released:10/29/2019 Released orders: SunOctober 29, 2019 11:02 AM by: BRIE ERNANDEZ EN [id number] PTT [#[id number]] Priority: STAT Class: ER Collect Speci men Source: Blood Standing Order Information Remaining Occurrences:0/1 Interval:ONE TI ME Last released:10/29/2019 Released orders: SunOctober 29, 2019 11:02 AM by: BRIE ERNANDEZ [id number] URINALYSIS W/ RFLX MICROSCOPIC [#[id number]] Priority: STAT Class: ER Collect Sta nding Order Information Remaining Occurrences:0/1 Interval:ONE TIME Last released:0 10/29/2019 Released orders: SunOctober 29, 2019 11:02 AM by: CRISTOBAL ERNANDEZ [id number] LITHIUM [#[id number]] Priority: STAT Class: ER Collect Standing Order Information Remaining Occurrences:0/1 Interval:ONE TIME Last released:10/29/2019 Released orders : SunOctober 29, 2019 11:02 AM by: CRISTOBAL ERNANDEZ [id number] CBC WITH AUTOMATED DIFF [# [id number]] Priority: STAT Class: ER Collect Specimen Source: Whole Blood Specimen Collected: 020 10:45 AM Resulting Agency: [facility] Test ID: [id number] Released on: 0 11:02 AM [id number] METABOLIC PANEL, COMPREHENSIVE [#[id number]] Priority: STAT Class: E R Collect Specimen Source: Plasma Specimen Collected: 10/29/2019 10:45 AM Resulting Agency: [facility] Test ID: MPL Released on: 10/29/2019 11:02 AM [id number] PROTHROMBIN TIME + IN R [#[id number]] Priority: STAT Class: ER Collect Specimen Source: Plasma Specimen Collec hyun: 10/29/2019 10:45 AM Resulting Agency: [facility] Test ID: APTHR Released o n: 10/29/2019 11:02 AM [id number] PTT [#[id number]] Priority: STAT Class: ER Collect Specimen Source: Plasma Specimen Collected: 10/29/2019 10:45 AM Resulting Agency: [facility] Test ID: APTT Released on: 10/29/2019 11:02 AM [id number] URINALYSIS W/ RFLX SC CROSCOPIC [#[id number]] Priority: STAT Class: ER Collect Resulting Agency: [facility] Test ID: UA Released on: 10/29/2019 11:02 AM [id number] LITHIUM [#[id number]] Priority: STAT Class: ER Collect Specimen Source: Serum Specimen Collected: 10/28 10:45 AM Resulting Agency: [facility] Test ID: LI Released on: 10/29/2019 11:02 AM [id number] CBC WITH AUTOMATED DIFF [#[id number]] Priority: STAT Class: E R Collect Standing Order Information Remaining Occurrences:06/25 Interval:TOMORR OW AM [id number] METABOLIC PANEL, BASIC [#[id number]] Priority: STAT Class: ER Collect St anding Order Information Remaining Occurrences:06/25 Interval:TOMORROW AM [id number] CT HEAD W O CONT [#[id number]] Priority: Routine Class: Hospital Performed Standing Or mariano Information Remaining Occurrences:0/1 Interval:ONE TIME Last released:10/29/2019 Released orders: SunOctober 29, 2019 11:02 AM by: CRISTOBAL ERNANDEZ Reason for Exam -> ams IMG 2590 XR CHEST PORT [#[id number]] Priority: STAT Class: Hospital Performe d Standing Order Information Remaining Occurrences:0/1 Interval:ONE TIME Last release d:10/29/2019 Released orders: SunOctober 29, 2019 11:02 AM by: CRISTOBAL ERNANDEZ Reason for Exam -> ams [id number] CT HEAD WO CONT [#[id number]] Priority: STAT Class: Hospital Perfo rmed Specimen Collected: 10/29/2019 11:54 AM Resulting Agency: [facility] Test ID: [id number] [place] son for Exam -> ams Released on: 10/29/2019 11:02 AM [id number] XR CHEST PORT [#[id number]] Priority: STAT Class: Hospital Performed Specimen Collected: 10/29/2019 12:16 PM Resultin g Agency: [facility] Test ID: [id number] Reason for Exam -> ams Released on: 10/29/2019 11:02 AM [id number] EKG, 12 LEAD, INITIAL [#[id number]] Priority: STAT Class: Hospital Performe d Standing Order Information Remaining Occurrences:0/1 Interval:ONE TIME Last release d:10/29/2019 Released orders: SunOctober 29, 2019 11:02 AM by: CRISTOBAL ERNANDEZ Reason for Exam : -> chest pain [id number] EKG, 12 LEAD, INITIAL [#[id number]] Priority: STAT Class: H ospital Performed Resulting Agency: [facility] Test ID: [id number] Reason for Exam: -> chest pain Releas ed on: 10/29/2019 11:02 AM [id number] POC GLUCOSE [#[id number]] Priority: STAT Cl ass: Hospital Performed Standing Order Information Remaining Occurrences:0/1 Interval:ONE TI ME Last released:10/29/2019 Released orders: SunOctober 29, 2019 11:02 AM by: BRIE ERNANDEZ EN [id number] POC GLUCOSE [#[id number]] Priority: STAT Class: Hospital Performe d Released on: 10/29/2019 11:02 AM [id number] VITAL SIGNS PER UNIT ROUTINE [#[id number]] Priorit y: STAT Class: Hospital Performed Standing Order Information Remaining Occurrences:0/1 Inte rval:CONTINUOUS Last released:10/29/2019 Released orders: SunOctober 29, 2019 2:54 PM by: RITIKA CANAS Comment:More frequently if Indicated. [id number] BEDREST, COMPLETE [#[id number]] Priority: STAT Class: Hospital Performed Standing Order Information Remainin g Occurrences:0/1 Interval:CONTINUOUS Last released:10/29/2019 Released orders : SunOctober 29, 2019 2:54 PM by: RITIKA CANAS [id number] NOTIFY PROVIDER: VITAL SIGNS CHANGES [# [id number]] Priority: STAT Class: Hospital Performed Standing Order [...] Less than 120 ml in 4 hours [id number] APPLY/MAINTAIN SEQUENTIAL COMPRESSIO* [#[id number]] Priority: ST AT Class: Hospital Performed Standing Order Information Remaining Occurrences:0/1 Inter haile:CONTINUOUS Last released:10/29/2019 Released orders: SunOctober 29, 2019 2:54 PM by: RITIKA CANAS [id number] VITAL SIGNS PER UNIT ROUTINE [#[id number]] Priority: STAT Class: H ospital Performed Comment:More frequently if Indicated. Released on: 10/29/2019 2:54 PM [id number] 4 BEDREST, COMPLETE [#[id number]] Priority: STAT Class: Hospital Performed Relea sed on: 10/29/2019 2:54 PM [id number] NOTIFY PROVIDER: VITAL SIGNS CHANGES [#[id number]] Priority: STAT Class: Hospital Performed Temp -> [...] carmen rs Released on: 10/29/2019 2:54 PM [id number] APPLY/MAINTAIN SEQUENTIAL COMPRESSIO* [#[id number]] P riority: STAT Class: Hospital Performed Released on: 10/29/2019 2:54 PM SODIUM CHLORIDE 0.9 % IJ SYRG [#[id number]] Priority: STAT Class: Normal SODIUM CHLORIDE 0.9 % IJ SYRG [#[id number]] Priority: STAT Class: Normal ACETAMINOPHEN 325 MG TABLET [# [id number]] Priority: STAT Class: Normal ENOXAPARIN 40 MG/0.4 ML SUB-Q SYRINGE [#[id number]] Priority: STAT Class: Normal SODIUM CHLORIDE 0.9 % IV [#[id number]] Priority: STAT Class: Normal [id number] GLUCOSE, POC [#[id number]] Priority: Routine Class : ER Collect Resulting Agency: [facility] Test ID: BGG Standing Order Informati on Remaining Occurrences:0/1 Released orders: SunOctober 29, 2019 11:26 AM by: Automatic B [facility] Process [id number] GLUCOSE, POC [#[id number]] Priority: Routine Class : ER Collect Specimen Source: Whole Blood Specimen Collected: 10/29/2019 11:26 AM Resulting Agency: [facility] Test ID: BGG Released on: 10/29/2019 11:26 AM [id number] IP CONSULT TO PRIMARY CARE PROVIDER [#[id number]] Priority: STAT Class: Hospital Performed Standing Order Inf ormation Remaining Occurrences:0/1 Interval:ONE TIME Last released:10/29/2019 Relea sed orders: SunOctober 29, 2019 12:59 PM by: CRISTOBAL ERNANDEZ Reason for Consult: -> admit Did you call or speak to the consulting provider? -> No Consult To -> dr canas [id number] IP [facility] [#[id number]] Priority: STAT Class: Hospital Performed Reason for Consult: -> ad rei Did you call or speak to the consulting provider? -> No Consult To -> dr canas Released on: 12:59 PM CON53 IP CONSULT TO PSYCHIATRY [#[id number]] Priority: STAT Class: H ospital Performed Standing [...] -> TODAY CON53 IP CONSULT TO PSYCHIATRY [#[id number]] Priority: STAT Class: Hospital Performed Reason for Consult: -> 49 yo male with severe bipolar diseas e, admitted with slurred speech, severe weakness Did you call or speak to t he consulting provider? -> No Consult To -> Dr Aguirre Schedule When? -> TODAY Released on: 10/29/2019 2:54 PM [id number] INITIAL PHYSICIAN ORDER: INPATIENT [#[id number]] Priority: Routine Class : ADT Pend Transfer [...] Length of Stay -> 3-4 [facility] Discharge Plan: -> Home with Office Follow-up [id number] INITIAL PHYSICIAN ORDER: INPATIENT [# [id number]] Priority: Routine Class: ADT Pend Transfer Status: [...] severe depression (HCC) Admitting Physician -> RITIKA CANSA Attending Physician - > RITIKA CANAS Estimated Length of Stay -> 3-4 Midnights Discharge Plan: -> Home with Office Foll ow-up Released on: 10/29/2019 2:43 PM [id number] INITIAL PHYSICIAN ORDER: INPATIENT [#[id number]] Priority: Routine Class: ADT Pend Transfer [...] -> RITIKA CANAS Attending Physician -> RITIKA CANSA Estimated Length of Stay -> 3-4 Midnights Discharge Plan: -> Other (Specify) [id number] INITIAL PHYSIC JOSE ORDER: INPATIENT [#[id number]] Priority: Routine Class: ADT Pend Transfer Status: [...] 2:54 PM IVT3 INSERT PERIPHERAL IV [# [id number]] Priority: STAT Class: Hospital Performed Standing Order Information Remaining Occurre nces:0/1 Interval:ONE TIME Last released:10/29/2019 Released orders: SunOctober 28, 020 2:54 PM by: RITIKA CANAS IVT3 INSERT PERIPHERAL IV [#[id number]] Priority: ST AT Class: Hospital Performed Released on: 10/29/2019 2:54 PM CON75 IP CONSULT TO PHYSICAL THERAPY [#[id number]] Priority: STAT Class: Hospital Performed Standing Order Information Remainin g Occurrences:14 Interval:DAILY Last released:10/29/2019 Released orders : SunOctober 29, 2019 2:54 PM by: RITIKA CANAS CON75 IP CONSULT TO PHYSICAL THERAPY [#[id number]] Priority: STAT Class: Hospital Performed Released on: 10/29/2019 2:54 PM COD2 FULL CODE [#[id number]] Priority: STAT Class: Hospital Performed Standing Order Inf ormation Remaining Occurrences:0/1 Interval:CONTINUOUS Last released:10/29/2019 Rel eased orders: SunOctober 29, 2019 2:54 PM by: RITIKA CANAS COD2 FULL CODE [#[id number]] Priority: STAT Class: Hospital Performed Released on: 10/29/2019 2:54 PM DIET10 4 DIET FULL LIQUID [#[id number]] Priority: STAT Class: Hospital Performed Stand ing Order Information Remaining Occurrences:0/1 Interval:DIET EFFECTIVE NOW Last released:10/29/2019 Released orders: SunOctober 29, 2019 2:54 PM by: RITIKA CANAS Comment:A dvance as tolerated to regular diet [id number] DIET FULL LIQUID [#[id number]] Priority: STAT Class: Hospital Performed Comment:Advance as tolerated to regular diet Released on: 10/29/2019 2:54 Maxwell Corona MR#: [id number] * Rm: 416-02Ht: 5' 7" Wt: 3 00 lb Code: Full Code Iso:Diagnosis:Bipolar disorder with severe depression (HCC) [F31.4]Allergies : No Known Allergies -------- Current as of: 10/29/19 1556 ---aspirin (ASPIRIN) tablet 325 mg #[id number] Admin Amount: 1 Tab (1 x 325 mg Tab) Ordered Dose: 325 mg Route: Oral Freq: ONCE Start Date: 12/24/13 No administration times (back 96 hours, ahead 96 hours). ------diphenhydrAMINE (BENADRYL) capsule 50 mg #[id number] Admin Amount: 1 Cap (1 x 50 mg Cap) Ordered Dose: 50 mg [place]: Oral Freq: NOW Start Date: 12/24/13 No administration times (back 96 hours, ahe ad 96 hours). ------diazepam (VALIUM) tablet 5 mg #[id number] Admin Amount: 1 Tab (1 x 5 mg Tab) Ordered Dose: 5 mg Route: Ora l Freq: ONCE Start Date: 12/24/13 No administration times (back 96 hours, e ad 96 hours). ------lidocaine (XYLOCAINE) 10 mg/mL (1 %) injection 1-30 mL #[id number] Admin Amount: 1-30 mL Ordered Dose: 1-30 mL Route: IntraDERMal Freq: ONC E Start Date: 12/24/13 No administration times (back 96 hours, ahead 96 hours). ------heparin (PF) 2 units/ml in NS infusion 2,000 Units #[id number] Admin Amount: 1,000 mL = 2,000 Units of 2 Units/mL Ordered Dose: 1,000 mL Route: Irrigation Freq: ONCE Start Date: 12/24/13 No administration times (b ack 96 hours, ahead 96 hours). ------heparinized saline 2 units/mL infusion 1,000 Units #[id number] Admin Amount: 500 mL = 1,000 Units of 2 Units/mL Ordered Dose: 500 mL R oute: IntraarTERial Freq: ONCE Start Date: 12/24/13 No administration times (back 96 hours, ahead 96 hours). ------0.9% sodium chloride infusion #[id number] Ordered Dose: 75 mL/hr Route: IntraVENous Freq: CONTINUOUS Start Date: 12/24/13 Rate: 75 mL/hr Duration: No administration times (back 96 hours, ahead 96 hours). ------ioversol (OPTIRAY) 320 mg iodine/mL contrast injection 1-100 mL #[id number] Admin Amount: 1-100 mL Ordered Dose: 1-100 mL Route: IntraVENous Freq: RAD ONCE Start Date: 12/24/13 No administration times (back 96 hours, ahead 96 hours).Maxwell Bray MR#: [id number] * Rm: [id number]: 5' 7" Wt: 300 lb Code: Full Code Iso:Diagnosis:Bipolar disorder with severe depression ([facility]) [F31.4]Allergies: No Kn own Allergies -------- Current as of: 10/29/19 1556 ---gadobutrol (GADAVIST) contrast solution 1-10 mL #[id number] Admin Amount: 1-10 mL Ordered Dose: 1-10 mL Route: IntraVENo us Freq: RAD ONCE Start Date: 01/13/14 No administration times (back 96 hours, ahe ad 96 hours). ------sodium chloride (NS) flush 5-10 mL #[id number] Admin Amount: 5-10 mL Ordered Dose: 5-10 mL Route: IntraVENous Freq: RA D ONCE Start Date: 01/13/14 No administration times (back 96 hours, ahead 96 hours). ------sodium chloride (NS) 0.9 % flush #[id number] Ordered Dose: Route: Freq: Start D ate: 01/13/14 No administration times (back 96 hours, ahead 96 hours). ------morphine injection 2 mg #[id number] Admin Amount: 1 mL = 2 mg of 2 mg/mL Ordered Dose: 2 mg Route: Int raVENous Freq: NOW Start Date: 03/13/15 No administration times (back 96 hours, ahe ad 96 hours). ------influenza vaccine (4 yr+)(PF) (FLUCELVAX QUAD) inj ection 0.5*#[id number] Admin Amount: 0.5 mL Ordered Dose: 0.5 mL Route: IntraMUSCular Freq : PRIOR TO DISCHARGE Start Date: 03/30/16 No administration times (back 96 hours, ahead 96 hours). ------oxyCODONE-acetaminophe n (PERCOCET) 5-325 mg per tablet 1 Tab #[id number] Admin Amount: 1 Tab Ordered Dose: 1 Tab Route: Oral Freq: NOW Start Date: 09/07/17 No administration times (back 96 hours, ahead 96 hours). ------barium sulfate (READICAT) 2.1 % (w/v), 2.0 % (w /w) oral suspension 9*#[id number] Admin Amount: 900 mL Ordered Dose: 900 mL Route: Ora l Freq: RAD ONCE Start Date: 10/15/17 No administration times (back 96 hours, e ad 96 hours). ------iopamidol (ISOVUE 300) 61 % contrast injection 100 mL #[id number] Admin Amount: 100 mL Ordered Dose: 100 mL Route: IntraVENous Freq: RAD O NCE Start Date: 10/15/17 No administration times (back 96 hours, ahead 96 hours).Maxwell Bray MR#: [id number] * Rm: [id number]: 5' 7" Wt: 300 lb Cod e: Full Code Iso:Diagnosis:Bipolar disorder with severe depression (HCC) [F31.4]Allergies: No Kn own Allergies -------- Current as of: 10/29/19 1556 ---risperiDONE (RisperDAL m-tabs) disintegrating tablet 1 mg #[id number] Admin Amount: 1 Tab (1 x 1 mg Tab) Ordered Dose: 1 mg [place]: Oral Freq: ONCE Start Date: 12/24/17 No administration times (back 96 hours, e ad 96 hours). ------ALPRAZolam (XANAX) tablet 2 mg #[id number] Admin Amount: 4 Tab (4 x 0.5 mg Tab) Ordered Dose: 2 mg Route: Ora l Freq: NOW Start Date: 12/24/17 No administration times (back 96 hours, e ad 96 hours). ------lamoTRIgine (LaMICtal) tablet 100 mg #[id number] Admin Amount: 1 Tab (1 x 100 mg Tab) Ordered Dose: 100 mg Route: Ora l Freq: ONCE Start Date: 12/24/17 No administration times (back 96 hours, e ad 96 hours). ------OLANZapine (ZyPREXA zydis) disintegrating tablet 5 mg #[id number] Admin Amount: 1 Tab (1 x 5 mg Tab) Ordered Dose: 5 mg Route: Ora l Freq: ONCE Start Date: 12/25/17 No administration times (back 96 hours, e ad 96 hours). ------LORazepam (ATIVAN) tablet 2 mg #[id number] Admin Amount: 4 Tab (4 x 0.5 mg Tab) Ordered Dose: 2 mg Route: Ora l Freq: NOW Start Date: 12/25/17 No administration times (back 96 hours, ahe ad 96 hours). ------LORazepam (ATIVAN) injection 1 mg #[id number] Admin Amount: 0.5 mL = 1 mg of 2 mg/mL Ordered Dose: 1 mg [place]: IntraVENous Freq: NOW Start Date: 12/25/17 No administration times (back 96 hours, ahead 96 hours). ------barium sulfate (EZ PAQUE) 96 % (w/w) contrast suspension 17 6 g #[id number] Admin Amount: 176 g Ordered Dose: 176 g Route: Oral Freq: RAD ONCE Start Date: 08/02/18 No administration times (back 96 hours, ahead 96 hours). ------barium sulfate (EZ PAQUE) 96 % (w/w) contrast suspension 17 6 g #[id number] Admin Amount: 176 g Ordered Dose: 176 g Route: Oral Freq: RAD ONCE Start Date: 08/02/18 No administration times (back 96 hours, ahead 96 hours).Maxwell Bray MR#: [id number] * Rm: [id number]: 5' 7" Wt: 300 lb Code: Full Co de Iso:Diagnosis:Bipolar disorder with severe depression ([facility]) [F31.4]Allergies: No Known Allergies -------- Current as of: 10/29/19 1556 ---aspirin chewable tablet 162 mg #[id number] Admin Amount: 2 Tab (2 x 81 mg Tab) Ordered Dose: 162 mg Route: Ora l Freq: NOW Start Date: 08/10/19 No administration times (back 96 hours, ahe ad 96 hours). ------0.9% sodium chloride infusion 1,000 mL #[id number] Admin Amount: 1,000 mL Ordered Dose: 1,000 mL Route: IntraVENous Freq: O NCE Start Date: 08/16/19 Rate: 1,000 mL/hr Duration: No administratio n times (back 96 hours, ahead 96 hours). ------methylPREDNISolone (PF) (Solu-MEDROL) injection 125 mg #[id number] Admin Amount: 2 mL = 125 mg of 125 mg/2 mL Ordered Dose: 125 mg [place]: IntraVENous Freq: NOW Start Date: 08/16/19 No administration times (back 9 6 hours, ahead 96 hours). ------aspirin chewable tablet 162 mg #[id number] Admin Amount: 2 Tab (2 x 81 mg Tab) Ordered Dose: 162 mg Route: Ora l Freq: NOW Start Date: 08/16/19 No administration times (back 96 hours, e ad 96 hours). ------sodium chloride (NS) flush 5-40 mL #[id number] Admin Amount: 5-40 mL Ordered Dose: 5-40 mL Route: IntraVENous Freq: RONA HERNANDEZY 8 HOURS Start Date: 10/29/19 Administration times (back 96 hours, ahead 96 hours): : 1400 2200 10/30/19: 06 1400 219910/31/19: 599 1400 219911/01/19: 599 1400 219911/02/19: 599 1400 ---sodium chloride (NS) flush 5-40 mL #[id number] Admin Amount: 5-40 mL Ordered Dose: 5-40 mL Route: IntraVENous Freq: NEEDED Start Date: 10/29/19 No administration times (back 96 hours, ahead 96 hours). ------acetaminophen (TYLENOL) tablet 650 mg #[id number] Admin Amount: 2 Tab (2 x 325 mg Tab) Ordered Dose: 650 mg [place]: Oral Freq: EVERY 4 HOURS NEEDED Start Date: 10/29/19 No administration times (back 96 hours, ahe ad 96 hours).Maxwell Bray MR#: [id number] * Rm: [id number]: 5' 7" Wt: 3 00 lb Code: Full Code Iso:Diagnosis:Bipolar disorder with severe depression (HCC) [F31.4]Allergies : No Known Allergies -------- Current as of: 10/29/19 1556 ---enoxaparin (LOVENOX) injection 40 mg #[id number] Admin Amount: 0.4 mL = 40 mg of 40 mg/0.4 mL Ordered Dose: 40 mg Route: SubCUTAneous Freq: EVERY 24 HOURS Start Date: 10/29/19 Administration times (back 96 hours, ahead 96 hours): 10/29/19: 14510/30/19: 145410/31/19: 145411/01/19: 145411/02/19 : 1454 ---0.9% sodium chloride infusion #[id number] Ordered Dose: 100 mL/hr Route: IntraVENous Freq: [...] Supporting Document(s ) ID Date Data Source [id number] 10/29/2019 03:54:13 PM EDT [facility] History & PhysicalBrian Anam Bray is [...] of morbidity or mortality cardiac cath at [facility] approx 6-8 months ag o [...] week Gets together: Once a week Attends latter day service: More than 4 times per year [...] trast. Sagittal and coronal reconstruction was performed.Utilizing history department chair alg orithm the examination was performed to [...] QTC Calculation (Bezet) 446 ms Calculated P Sunray 53 degrees Calculat ed R Sunray 68 degrees Calculated T Sunray 0 degrees Diagnosis Sinus tachycardiaProl onged AL intervalNonspecific intraventricular conduction delayCBC WITH AUTOMATED DIFF [...] lydia: 10/29/19 10:45 AMResult Value Ref Range Plaza level <0.20 (L) 0.6 - 1.2 MMOL/L GLUCOSE, POC Collection Time: 10/29/19 11:26 AMResult Value Ref Range Glucose, bedsid e 102 65 - 110 MG/DLAll lab results for the last 24 hours reviewed.Assessment/PlanAc tive Problems: Bipolar disorder with severe depression (HCC) (10/29/2019) possible [place]ent[place] dvertentoverdoseGeorge MD Corey Name Value Range Interpretation Code Description Data Melani rce(s) Supporting Document(s ) ID Date Data Source [id number] 10/29/2019 03:42:10 PM EDT [facility] TRANSFER - OUT REPORT:Verbal report give [...] Supporting Document(s ) ID Date Data Source [id number] 10/29/2019 02:28:59 PM EDT [facility] The history is provided by [...] morbidity or mortal ity cardiac cath at [facility] approx 6-8 months ago Other [...] week Gets together: Once a week Attends latter day service: More than 4 times per year [...] QTC Calculation (Bezet) 446 ms Calculated P Sunray 53 degr ees Calculated R Sunray 68 degrees Calculated T Sunray 0 degrees Diagnosis Sinus tachycar diaProlonged AL intervalNonspecific intraventricular conduction delayCBC WIT H AUTOMATED [...] lydia: 10/29/19 10:45 AMResult Value Ref Range Plaza level <0.20 (L) 0.6 - 1.2 MMOL/L [...] Sagittal and coronalreconstru ction was performed. Utilizing history department chair algorithm the examinationwas performed t o optimize [...] Supporting Document(s ) ID Date Data Source [id number] 10/29/2019 12:17:28 PM EDT [facility] XR CHEST PORTCLINICAL INDICATION PROVIDE D:. [...] Supporting Document(s ) ID Date Data Source [id number] 10/29/2019 11:55:57 AM EDT [facility] CT HEAD WO CONTClinical data: amsPriors: 03/13/2015.Technique: Multiple axial images were obtained from the skullbase to the vertexwithout administration of intravenous contrast. Sagittal and coronalreconstru ction was performed. Utilizing history department chair algorithm the examinationwas performed t o optimize [...] Supporting Document(s ) ID Date Data Source [id number] 10/29/2019 11:48:34 AM EDT [facility] Name Value Range Interpretation Description Data Sup porting Code Source(s) Document(s ) Glucose 102 MG/DL 65-110 [facility] [Mass/volume] [facility] in Blood by Hospital Automated test strip ID Date Data Source [id number] 10/29/2019 10:49:56 AM EDT [facility] Patient lethargic, BIBA from home for le thargy and slurred speech. Name Value Range Interpretation Code Description Data Melani rce(s) Supporting Document(s ) ID Date Data Source [id number] 10/29/2019 11:29:33 AM EDT [facility] Name Value Range Interpretation Code Description Data Supporting Source(s) Document(s ) Plaza 0.6-1.2 Below low normal [facility] [Moles/volum [facility] e] in Serum Hospital or Plasma ID Date Data Source [id number] 10/29/2019 11:28:52 AM EDT [facility] Name Value Range Interpretation Description Data Sup porting Code Source(s) Document(s ) Sodium 136 136-145 [facility] [Moles/volume] mmol/L [facility] in Serum or Hospital Plasma Potassium 4.4 3.5-5.1 [facility] [Moles/volume] mmol/L [facility] in Serum or Hospital Plasma Chloride 106 98-107 [facility] [Moles/volume] mmol/L [facility] in Serum or Hospital Plasma Carbon 22 21-32 [facility] dioxide, total mmol/L [facility] [Moles/volume] Hospital in Serum or Plasma Anion gap in 12 10-20 [facility] Serum or mmol/L [facility] Plasma Hospital Glucose 108 74-106 Above high normal [facility] [Mass/volume] mg/dL [facility] in Serum or Hospital Plasma Urea nitrogen 16 mg/dL 7-18 [facility] [Mass/volume] [facility] in Serum or Hospital Plasma Creatinine 1.05 0.70-1.3 [facility] [Mass/volume] mg/dL 0 [facility] in Serum or Hospital Plasma Glomerular >60 [facility] filtration [facility] rate/1.73 sq M Hospital predicted among blacks [Volume Rate/Area] in Serum or Plasma by Creatinine-bas ed formula (MDRD) Glomerular >60 [facility] - [facility] filtration [facility] rate/1.73 sq M Hospital predicted among non-blacks [Volume Rate/Area] in Serum or Plasma by Creatinine-bas ed formula (MDRD) (NOTE)Estimated GFR is calculated using the Modification of Diet in RenalDisease (MDRD) Study equation, reported for both Americans(GFRAA) and non- Americans (GFRNA), and normalized to 1.7 6h4aceo surface area. The physician must decide which [...] 8.5-10.1 [facility] Serum or Plasma [facility] Bilirubin.total 0.7 mg/dL 0.2-1.0 [facility] [Mass/volume] in Serum or [facility] Plasma Alanine aminotransferase 30 U/L 13-61 [facility] - [facility] [Enzymatic activity/volume] [facility] in Serum or Plasma Aspartate aminotransferase 27 U/L 15-37 [facility] HS - Good [Enzymatic activity/volume] [facility] in Serum or Plasma by With P-5'-P Alkaline phosphatase 139 U/L 45-117 Above high [facility] - [facility] [Enzymatic activity/volume] normal [facility] in Serum or Plasma Protein [Mass/volume] in 7.6 g/dL 6.4-8.2 [facility] - Good Serum or Plasma [facility] Albumin [Mass/volume] in 3.9 g/dL 3.5-4.7 [facility] - Good Serum or Plasma by [facility] ospital Bromocresol purple (BCP) dye binding method Globulin [Mass/volume] in 3.7 g/dL 1.7-4.7 [facility] - Good Serum by calculation [facility] Albumin/Globulin [Mass 1.0 0.7-2.8 [facility] - Good Ratio] in Serum or Plasma [facility] ID Date Data Source [id number] 10/29/2019 11:20:29 AM EDT [facility] Name Value Range Interpretation Description Data Sup porting Code Source(s) Document(s ) aPTT in 22.2 SEC 21.0-28. [facility] Platelet poor 0 [facility] plasma by Hospital Coagulation assay Therapeutic Range = 42.0-60.0 secs ID Date Data Source [id number] 10/29/2019 11:20:29 AM EDT [facility] Name Value Range Interpretation Description Data Sup porting Code Source(s) Document(s ) Prothrombin 10.3 sec 9.4-11.1 [facility] time (PT) [facility] INR in 1.0 0.8-1.2 [facility] - Good Platelet poor [facility] plasma by Hospital Coagulation assay ID Date Data Source [id number] 10/29/2019 11:11:49 AM EDT [facility] - [facility] Name Value Range Interpretation Description Data Sup porting Code Source(s) Document(s ) Leukocytes 8.1 K/uL 4.8-10.6 [facility] - [#/volume] in Good Blood by [facility] count [facility] Erythrocytes 5.52 4.70-6.0 [facility] - [#/volume] in M/uL 0 Good Blood by [facility] Hemoglobin 16.7 14.0-18. [facility] - [Mass/volume] in g/dL 0 [facility] Blood [facility] Hematocrit 51.8 % 42.0-52. [facility] - [Volume 0 Good Fraction] of [facility] Blood by Hospital Automated count Erythrocyte mean 93.8 FL 81.0-94. [facility] - corpuscular 0 Good volume [Entitic [facility] volume] by Hospital Automated count Erythrocyte mean 30.3 PG 27.0-35. [facility] - corpuscular 0 Good hemoglobin [facility] [Entitic mass] [facility] by Automated count Erythrocyte mean 32.2 30.7-37. [facility] - corpuscular g/dL 3 Good hemoglobin [facility] [Mass/volume] by Automated count Erythrocyte 13.2 % 11.5-14. [facility] - distribution 0 Good width [Ratio] by [facility] Platelets 193 K/uL 130-400 [facility] - [#/volume] in Good Blood by [facility] Platelet mean 8.6 FL 9.2-11.8 Below low normal [facility] - volume [Entitic Good volume] in Blood [facility] count Nucleated 0.0 PER 0 [facility] - erythrocytes/100 100 WBC Good leukocytes [facility] [Ratio] in Blood Hospital Nucleated 0.00 0.0-0.01 [facility] - erythrocytes K/uL Good [#/volume] in [facility] Segmented 79 % 48.0-72. Above high normal [facility] - neutrophils/100 0 Good leukocytes in [facility] Lymphocytes/100 10 % 18.0-40. Below low normal [facility] - leukocytes in 0 Good Blood [facility] Monocytes/100 8 % 2.0-12.0 [facility] - leukocytes in Good Blood [facility] Eosinophils/100 1 % 0.0-7.0 [facility] - leukocytes in [facility] Basophils/100 0 % 0.0-3.0 [facility] - leukocytes in [facility] Immature 1 % 0-0.5 Above high normal [facility] - granulocytes/100 Good leukocytes in [facility] Automated count Segmented 6.4 K/UL 2.3-7.6 [facility] - neutrophils Good [#/volume] in [facility] Lymphocytes 0.8 K/UL 0.9-4.2 Below low normal [facility] - [#/volume] in [facility] Monocytes 0.7 K/UL 0.1-1.7 [facility] - [#/volume] in [facility] Eosinophils 0.1 K/UL 0.0-1.0 [facility] - [#/volume] in [facility] Basophils 0.0 K/UL 0.0-0.4 [facility] - [#/volume] in [facility] Immature 0.1 K/UL 0.0-0.17 [facility] - granulocytes Good [#/volume] in [facility] Automated count Differential [facility] - cell count [facility] method [facility] ID Date Data Source [id number] 09/15/2019 09:44:01 AM EDT [facility] Clinical Indications/Reason For Exam: pa in.AP, [...] Supporting Document(s ) ID Date Data Source [id number] 09/15/2019 09:41:40 AM EDT [facility] THORACIC SPINE 4 views.History: Pain.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 Signing date/time: 09/15/2019 9:41 AMSigned by: CURTIS VARMA Name Value Range Interpretation Code Description Data Melani rce(s) Supporting Document(s ) ID Date Data Source [id number] 09/15/2019 09:40:53 AM EDT [facility] Clinical indications with reason for exa [...] Name Value Range Interpretation Code Description Data [facility] rce(s) Supporting Document(s ) ID Date Data Source [id number] 08/17/2019 08:25:20 AM EST [facility] History: Chest PainTechnique: Portable c [...] Name Value Range Interpretation Code Description Data [facility] rce(s) Supporting Document(s ) ID Date Data Source [id number] 08/16/2019 11:12:22 PM EST [facility] The history is provided by [...] m orbidity or mortality cardiac cath at [facility] approx 6-8 months ago Other [...] e Gets together: Not on file Attends latter day service: Not on file 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 [...] Calculation (Bezet) 429 ms Ca lculated P Sunray 36 degrees Calculated R Sunray 77 degrees Calculated T Sunray -24 degrees Diagnosis Sinus tachycardiaBorderline T abnormalities, [...] Time: 08/16/19 9:00 PMResult Value Ref Range Plaza level 0.21 (L) 0.6 - 1.2 MMOL/LEKG: sinus tach ycardia, rate 109Radiology:CXR: no acute findings<EMERGENCY DEPARTMENT CASE [facility]>Impression/Differential Diagnosis: Allergic reaction allergic, drug reactio n,ACS, pulmonary embolismED Course: Patient presents short of breath and mildly tach ycardic complainingof new onset rash to face anterior chest and posterior chest.Plan: Labs, chest x-ray, EKG, troponin, d-dimer, prednisone, Pepcid, ibntabhwzzs52:04 PM patient verbalizes relief of symptoms rash has faded. He denies chestpain he denie s shortness of breath.Patient was advised that we cannot rule out allergic drug re action as he isrecently just restarted taking his lithium. Patient advised to discuss takinglithium with his psychiatrist as soon as possible.Patient reassessed at [facility] e by me. Feels better at present, wants to go home.Patient was told to follow up with the primary doctor in 1-2 days and [facility] ED for any worsening severe pain, [...] of disposition: stableI have reviewed the f [facility] medications:Prior to Admission medicationsMedication Sig Start [...] 36N*ENCOUNTER 08/16/2019 10:46:05 PM EST [facility] [id number] [facility] EMERGENCY DEPARTMENT [address] [facility] [place] [address] [phone]/ Maxwell Bray (Male) [id number] ES I 3 ED Dispo:DISCHARGE Chief Complaint: Allergic Reaction Diagnosis: Allergic reaction, initial encounter [] Allergic reaction to drug, in itial encounter [] Current Providers: Attending: Javier Quezada Nurse Practitioner: Javier Ward Primary Nurse: HARINDER AcuñaN: [id number] Print [employer] [phone] - [facility] MrnMRN: [id number] [employer] [phone] - [facility] Age Sex 1970 AGE 49 SEX Male Primary Care Provider: Ritika Canas MD Cypeemivd: (No Known Allergies)Date Reviewed: 08/16/2019Reviewed by: Zahraa Prince RN - Review CompleteED Provider Notes: No not es of this type exist for this encounter.ED Orders BUPROPION XL 300 MG 24 HR TAB [#[id number]] Priority: Routine Class: Historical Med LITHIUM CARBONATE 150 MG CAP [#[id number]] Priority: Routine Class: Historical Med FAMOTIDINE 20MG + NS 10 ML IV [#[id number]] Priority: STAT Class: Normal H2RA INDICATION -> Adverse reaction/Anaphylaxis SODIUM CH LORIDE 0.9 % IV [#[id number]] Priority: STAT Class: Normal METHYLPREDNISOLONE (PF) 125 MG/2 ML * [#[id number]] Priority: STAT Class: Normal ASPIRIN 81 MG CHEWABLE TAB [# [id number]] Priority: STAT Class: Normal PREDNISONE 50 MG TAB [#[id number]] Bridgette ority: Routine Class: Normal [id number] RN PLASTIC SURGERY - ED ONLY [#[id number]] Priority: STAT C lass: Hospital Performed Standing Order Information Remaining Occurrences:0/1 Interval:Contin uous Last released:08/16/2019 Released orders: Sat Aug 16, 2019 9:02 PM by: Javier POLLOCK Type: -> Bedside [id number] OBTAIN OLD EKG [#[id number]] Priority: Routi ne Class: Hospital Performed Standing Order Information Remaining Occurrences:0/1 Inter haile:ONE TIME Last released:08/16/2019 Released orders: Sat Aug 16, 2019 9:02 PM by: INDIO WARD [id number] PULSE OXIMETRY CONTINUOUS [#[id number]] Priority: STAT Class: H ospital Performed Standing Order Information Remaining Occurrences:0/1 Interval:CONTIN UOUS Last released:08/16/2019 Released orders: Sat Aug 16, 2019 9:02 PM by: Javier POLLOCK [id number] RN PLASTIC SURGERY - ED ONLY [#[id number]] Priority: STAT Class: Hospital Perfo rmed Type: -> Bedside Released on: 08/16/2019 9:02 PM [id number] OBTAIN OLD EKG [#[id number]] Priority: STAT Class: Hospital Performed Released on: 08/16/2019 9:02 PM [id number] PULSE OXIMETRY CONTINUOUS [#[id number]] Priority: STAT Class: Hospital Performed Relea sed on: 08/16/2019 9:02 PM [id number] DIET NPO [#[id number]] Priority: STAT Cla ss: Hospital Performed Standing Order Information Remaining Occurrences:0/1 Interval:DIET E FFECTIVE NOW Last released:08/16/2019 Released orders: Sat Aug 16, 2019 9:02 PM by: INDIO WARD NPO options: -> With Meds [id number] DIET NPO [#[id number]] Priority: STAT Class: Hospital Performed NPO options: -> With Meds Released on: 08/16/2019 9:02 PM [id number] SALINE LOCK IV [#[id number]] Priority: STAT Class: Hospital Performe d Standing Order Information Remaining Occurrences:0/1 Interval:ONE TIME Last released: 08/16/2019 Released orders: Sat Aug 16, 2019 9:02 PM by: INDIO POLLOCK [id number] SALIN E LOCK IV [#[id number]] Priority: STAT Class: Hospital Performed Released on : 08/16/2019 9:02 PM [id number] METABOLIC PANEL, COMPREHENSIVE [#[id number]] Priority: STAT Class: E R Collect Standing Order Information Remaining Occurrences:0/1 Interval:ONE TIME Last r eleased:08/16/2019 Released orders: [facility] Aug 16, 2019 9:02 PM by: INDIO POLLOCK [id number] CBC WITH AUTOMATED DIFF [#[id number]] Priority: STAT Class: ER Collect Standing Order Info rmation Remaining Occurrences:0/1 Interval:ONE TIME Last released:08/16/2019 Released orders: [facility] Aug 16, 2019 9:02 PM by: INDIO POLLOCK [id number] TROPONIN I [#[id number]] Priority: STAT Class: ER Collect Standing Order Information Remaining Occurre nces:0/1 Interval:ONE TIME Last released:08/16/2019 Released orders: [facility] Aug 16 9:02 PM by: INDIO POLLOCK [id number] MAGNESIUM [#[id number]] Priorit y: STAT Class: ER Collect Standing Order Information Remaining Occurrences:0/1 Inter haile:ONE TIME Last released:08/16/2019 Released orders: [facility] Aug 16, 2019 9:02 PM by: INDIO WARD [id number] D DIMER [#[id number]] Priority: STAT Class: E R Collect Standing Order Information Remaining Occurrences:0/1 Interval:ONE TIME Last r eleased:08/16/2019 Released orders: [facility] Aug 16, 2019 9:02 PM by: INDIO POLLOCK [id number] METABOLIC PANEL, COMPREHENSIVE [#[id number]] Priority: STAT Class: ER Collect Specimen Source: Plas ma Specimen Collected: 08/16/2019 9:00 PM Resulting Agency: [facility] Test ID: MPL Released on: 08/16/2019 9:02 PM [id number] CBC WITH AUTOMATED DIFF [#[id number]] Prior ity: STAT Class: ER Collect Specimen Source: Whole Blood Specimen Collected: 08/16/2019 9:00 PM Resultin g Agency: [facility] Test ID: [id number] Released on: 08/16/2019 9:02 PM [id number] TROPONIN I [#[id number]] Priority: STAT Class: ER Collect Specimen Source : Plasma Specimen Collected: 08/16/2019 9:00 PM Resulting Agency: [facility] Test ID: [id number] Released on: 08/16/2019 9:02 PM [id number] MAGNESIUM [#[id number]] Priority: STAT Class: ER Collect Specimen Source: Plasma Specimen Collected: 08/16/2019 9:00 PM Resultin g Agency: [facility] Test ID: [id number] Released on: 08/16/2019 9:02 PM [id number] D DIMER [#[id number]] Priority: STAT Class: ER Collect Specimen Source : Plasma Specimen Collected: 08/16/2019 9:00 PM Resulting Agency: [facility] Test ID: [id number] Released on: 08/16/2019 9:02 PM [id number] LITHIUM [#[id number]] Priority: STAT Class: ER Collect Standing Order Information Remaining Occurrences:0/1 Inter haile:ONE TIME Last released:08/16/2019 Released orders: Sat Aug 16, 2019 9:02 PM by: INDIO WARD [id number] LITHIUM [#[id number]] Priority: STAT Class: E R Collect Specimen Source: Serum Specimen Collected: 08/16/2019 9:00 PM Resulting Agency: [facility] Test ID: LI Released on: 08/16/2019 9:02 PM [id number] EKG, 12 LEAD, INITIAL [#[id number]] Priority: STAT Class: Hospital Performed Standing Order Information Remainin g Occurrences:0/1 Interval:ONE TIME Last released:08/16/2019 Released orders : Sat Aug 16, 2019 9:02 PM by: INDIO POLLOCK Reason for Exam: -> Chest Pain [id number] EKG, 12 LEAD, INITIAL [#[id number]] Priority: STAT Class: Hospital Performed Resulting Age ncy: GSH MUSE Test ID: [id number] Reason for Exam: -> Chest Pain Released on: 08/16/2019 9:02 PM [id number] XR CHEST PORT [#[id number]] Priority: STAT Class: Hospital Performed Stand ing Order Information Remaining Occurrences:0/1 Interval:ONE TIME Last released:0 08/16/2019 Released orders: Sat Aug 16, 2019 9:02 PM by: INDIO POLLOCK Reason for Exam -> Chest Pain [id number] XR CHEST PORT [#[id number]] Priority: STAT Class: H ospital Performed Resulting Agency: [facility] Test ID: [id number] Reason for Exam -> Chest Pain Rele ased on: 08/16/2019 9:02 Maxwell Corona MR#: [id number] * Rm: [id number] Ht: 5' 10" Wt: 280 lb Code: Prior Iso:Diagnosis:Allergies: No Known Allergies -------- Current as of: 08/16/192245 GI=Given IC=IV Complet ed NB=New Bag --aspirin (ASPIRIN) tablet 325 mg #[id number] Admin Amount: 1 Tab (1 x 325 mg Tab) Ordered Dose: 325 mg Route: Oral Freq: ONCE Start Date: 12/24/13 No administration times (back 96 hours, ahead 96 hours). ------diphenhydrAMINE (BENADRYL) capsule 50 mg #[id number] Admin Amount: 1 Cap (1 x 50 mg Cap) Ordered Dose: 50 mg Route: Ora l Freq: NOW Start Date: 12/24/13 No administration times (back 96 hours, ahe ad 96 hours). ------diazepam (VALIUM) tablet 5 mg #[id number] Admin Amount: 1 Tab (1 x 5 mg Tab) Ordered Dose: 5 mg Route: Oral Freq: ON CE Start Date: 12/24/13 No administration times (back 96 hours, ahead 96 hours). ------lidocaine (XYLOCAINE) 10 mg/mL (1 %) injection 1-30 mL #[id number] Admin Amount: 1-30 mL Ordered Dose: 1-30 mL Route: IntraDERMal Freq: ONCE Start Date: 12/24/13 No administration times (back 96 hours, ahead 96 hours). ------heparin (PF) 2 units/ml in NS infusion 2,000 Units #[id number] Admin Amount: 1,000 mL = 2,000 Units of 2 Units/mL Ordered Dose: 1,000 mL [place]: Irrigation Freq: ONCE Start Date: 12/24/13 No administration times (back 96 hours, ahead 96 hours). ------heparinized saline 2 units/mL infusion 1,000 Units #[id number] Admin Amount: 500 mL = 1,000 Units of 2 Units/mL Ordered Dose: 500 mL Ro [place]: IntraarTERial Freq: ONCE Start Date: 12/24/13 No administration times (back 96 hours, ahead 96 hours). ------0.9% sodium chloride infusion #[id number] Ordered Dose: 75 mL/hr Route: IntraVENous Freq: CONTINUOUS Start Date: 12/24/13 Rate: 75 mL/hr Duration: No administration times (back 96 hours, ahead 96 hours). ------ioversol (OPTIRAY) 320 mg iodine/mL contrast injection 1-100 mL #[id number] Admin Amount: 1-100 mL Ordered Dose: 1-100 mL Route: IntraVENous Freq: RAD O NCE Start Date: 12/24/13 No administration times (back 96 hours, ahead 96 hours).Maxwell Bray MR#: [id number] * Rm: [id number]: 5' 10" Wt: 280 lb Co de: Prior Iso:Diagnosis:Allergies: No Known Allergies -------- Current as of: 08/16/192245 GI=Given IC=IV Complet ed NB=New Bag --gadobutrol (GADAVIST) contrast solution 1-10 mL #[id number] Admin Amount: 1-10 mL Ordered Dose: 1-10 mL Route: IntraVENous Freq: RAD O NCE Start Date: 01/13/14 No administration times (back 96 hours, ahead 96 hours). ------sodium chloride (NS) flush 5-10 mL #[id number] Admin Amount: 5-10 mL Ordered Dose: 5-10 mL Route: IntraVENous Freq: RAD ONCE Start Date: 01/13/14 No administration times (back 96 hours, ahead 96 hours). ------sodium chloride (NS) 0.9 % flush #[id number] Ordered Dose: Route: Freq: Start Date: 01/13 No administration times (back 96 hours, ahead 96 hours). ------morphine injection 2 mg #[id number] Admin Amount: 1 mL = 2 mg of 2 mg/mL Ordered Dose: 2 mg Route: IntraVENous Freq: NOW Start Date: 03/13/15 No administration times (back 96 hours, ahe ad 96 hours). ------influenza vaccine (4 yr+)(PF) (FLUCELVAX QUAD) inj ection 0.5*#[id number] Admin Amount: 0.5 mL Ordered Dose: 0.5 mL Route: IntraMUSCular Freq: PRIOR TO DISCHARGE Start Date: 03/30/16 No administration times (back 96 hours, ahead 96 hours). ------oxyCODONE-acetaminophen (PERCOCET) 5-325 mg per tablet 1 Tab #[id number] Admin Amount: 1 Tab Ordered Dose: 1 Tab Route: Oral Freq: NOW Start Date: 09/07/17 No administration times (back 96 hours, ahead 96 hours). ------barium sulfate (READICAT) 2.1 % (w/v), 2.0 % (w /w) oral suspension 9*#[id number] Admin Amount: 900 mL Ordered Dose: 900 mL Route: Oral Delgado q: RAD ONCE Start Date: 10/15/17 No administration times (back 96 hours, ahead 96 hours). ------iopamidol (ISOVUE 300) 61 % contrast injection 100 mL #[id number] Admin Amount: 100 mL Ordered Dose: 100 mL Route: IntraVENous Freq: RAD ONC E Start Date: 10/15/17 No administration times (back 96 hours, ahead 96 hours).Maxwell Bray MR#: [id number] * Rm: [id number]: 5' 10" Wt: 280 lb Code: Prior Iso:Diagnosis:Allergies: No Known Allergies -------- Current as of: 08/16/192245 GI=Given IC=IV Complet ed NB=New Bag --risperiDONE (RisperDAL m-tabs) disintegrating tablet 1 mg #[id number] Admin Amount: 1 Tab (1 x 1 mg Tab) Ordered Dose: 1 mg Route: Oral Freq: ONCE Start Date: 12/24/17 No administration times (back 96 hours, ahead 96 hours). ------ALPRAZolam (XANAX) tablet 2 mg #[id number] Admin Amount: 4 Tab (4 x 0.5 mg Tab) Ordered Dose: 2 mg Route: Ora l Freq: NOW Start Date: 12/24/17 No administration times (back 96 hours, ahe ad 96 hours). ------lamoTRIgine (LaMICtal) tablet 100 mg #[id number] Admin Amount: 1 Tab (1 x 100 mg Tab) Ordered Dose: 100 mg Route: Oral Delgado q: ONCE Start Date: 12/24/17 No administration times (back 96 hours, ahead 96 hours). ------OLANZapine (ZyPREXA zydis) disintegrating tablet 5 mg #[id number] Admin Amount: 1 Tab (1 x 5 mg Tab) Ordered Dose: 5 mg Route: Oral Delgado q: ONCE Start Date: 12/25/17 No administration times (back 96 hours, ahead 96 hours). ------LORazepam (ATIVAN) tablet 2 mg #[id number] Admin Amount: 4 Tab (4 x 0.5 mg Tab) Ordered Dose: 2 mg Route: Ora l Freq: NOW Start Date: 12/25/17 No administration times (back 96 hours, [facility] ad 96 hours). ------LORazepam (ATIVAN) injection 1 mg #[id number] Admin Amount: 0.5 mL = 1 mg of 2 mg/mL Ordered Dose: 1 mg Route: Int Katherin Freq: NOW Start Date: 12/25/17 No administration times (back 96 hours, e ad 96 hours). ------barium sulfate (EZ PAQUE) 96 % (w/w) contrast suspension 17 6 g #[id number] Admin Amount: 176 g Ordered Dose: 176 g Route: Oral Freq: RAD ONCE Start Date: 08/02/18 No administration times (back 96 hours, ahead 96 hours). ------barium sulfate (EZ PAQUE) 96 % (w/w) contrast s uspension 176 g #[id number] Admin Amount: 176 g Ordered Dose: 176 g Route: Oral Delgado q: RAD ONCE Start Date: 08/02/18 No administration times (back 96 hours, ahead 96 hours).Maxwell Ritter MR#: [id number] * Rm: [id number]: 5' 10" Wt: 280 lb Co de: Prior Iso:Diagnosis:Allergies: No Known Allergies -------- Current as of: 08/16/192245 GI=Given IC=IV Complet ed NB=New Bag --aspirin chewable tablet 162 mg #[id number] Admin Amount: 2 Tab (2 x 81 mg Tab) Ordered Dose: 162 mg Route: Oral Freq: NOW Start Date: 08/10/19 No administration times (back 96 hours, ahead 96 hours). ------famotidine (PF) (PEPCID) 20 mg in 0.9% sodium chloride 10 mL inje cti*#[id number] Admin Amount: 20 mg Ordered Dose: 20 mg Route: IntraVENous Freq: EVERY 12 H OURS Start Date: 08/16/19 Administration times (back 96 hours, ahead 96 hours): 08/16/19: 2119G I 08/17/19: 89908/18/19: 89908/19/19: 89908/20/19: 899 2099 ---0.9% sodium chloride infusion 1,000 mL #[id number] Admin Amount: 1,000 mL Ordered Dose: 1,000 mL Route: IntraVENous Freq: ONC E Start Date: 08/16/19 Rate: 1,000 mL/hr Duration: Administration times (back 96 hours, ahead 96 hours): 08/16/19: 2118NB 2245IC -----methylPREDNISolone (PF) (Solu-MEDROL) injection 125 mg #[id number] Admin Amount: 2 mL = 125 mg of 125 mg/2 mL Ordered Dose: 125 mg Route: Int raVENous Freq: NOW Start Date: 08/16/19 Administration times (back 96 hours, ahe ad 96 hours): 08/16/19: 2118GI -----aspirin chewable tablet 162 mg #[id number] Admin Amount: 2 Tab (2 x 81 [...] mg by mouth three (3) times daily.Dispense [place] unt:Start Date:End Date:Doc. Provider: Paul Bradford MDpredniSONE [...] DDetails:In 2 daysComments:Contact Info:[phone]-up With:[facility] EM[facility]ENCY DEPARTMENTDetails:Comments:As needed, If symptoms worsenContact Info:[address] Kevin WoodardSelect [facility] Highlandsr[place] [id number] Name Value Range Interpretation Code Description Data Melani rce(s) Supporting Document(s ) ID Date Data Source [id number] 08/16/2019 10:45:45 PM EST [facility] IV site clean/dry/intact, gauze dressing applied. Pt received written and verbaldischarge instructions. Verbalize d understanding of same. Ambulated out of EDwith steady gait and in no distress. Name Value Range Interpretation Code Description Data Melani rce(s) Supporting Document(s ) ID Date Data Source [id number] 08/16/2019 09:58:14 PM EST [facility] Name Value Range Interpretation Description Data Sup porting Code Source(s) Document(s ) Plaza 0.21 0.6-1.2 Below low normal [facility] [Moles/volu MMOL/L [facility]] in Hospital Serum or Plasma ID Date Data Source [id number] 08/16/2019 09:52:19 PM EST [facility] Name Value Range Interpretation Code Description Data Melani rce(s) Supporting Document(s ) Fibrin <500 [facility] D-dimer [facility] [[facility] in Platelet poor plasma (NOTE)Combination of a D-Dimer result wi thin the reference range and a lowclinical pretest probability has good negative pr edictive value fordeep venous thrombosis.If results are utilized for VTE evaluation, <500 ng/ml is consideredto be negative. ID Date Data Source [id number] 08/16/2019 09:44:39 PM [facility] Name Value Range Interpretation Description Data Sup porting Code Source(s) Document(s ) Troponin 0.00-0.05 [facility] - Good I.cardiac [facility] ] in Serum or Plasma [...] to 1.50 ng/mL ID Date Data Source [id number] 08/16/2019 09:44:39 PM EST [facility] Name Value Range Interpretation Description Data Sup porting Code Source(s) Document(s ) Sodium 138 136-145 [facility] [Moles/volume] mmol/L [facility] in Serum or Hospital Plasma Potassium 3.4 3.5-5.1 Below low normal [facility] [Moles/volume] mmol/L [facility] in Serum or Hospital Plasma Chloride 108 98-107 Above high normal [facility] [Moles/volume] mmol/L [facility] in Serum or Hospital Plasma Carbon 20 21-32 Below low normal [facility] dioxide, total mmol/L [facility] [Moles/volume] Hospital in Serum or Plasma Anion gap in 14 10-20 [facility] Serum or mmol/L [facility] Plasma Hospital Glucose 105 74-106 [facility] [Mass/volume] mg/dL [facility] in Serum or Hospital Plasma Urea nitrogen 20 mg/dL 7-18 Above high normal [facility] [Mass/volume] [facility] in Serum or Hospital Plasma Creatinine 0.90 0.70-1.3 [facility] [Mass/volume] mg/dL 0 [facility] in Serum or Hospital Plasma Glomerular >60 [facility] filtration [facility] rate/1.73 sq M Hospital predicted among blacks [Volume Rate/Area] in Serum or Plasma by Creatinine-bas ed formula (MDRD) Glomerular >60 [facility] filtration [facility] rate/1.73 sq M Hospital predicted among non-blacks [Volume Rate/Area] in Serum or Plasma by Creatinine-bas ed formula (MDRD) (NOTE)Estimated GFR is calculated using the Modification of Diet in RenalDisease (MDRD) Study equation, reported for both Americans(GFRAA) and non- Americans (GFRNA), and normalized to 1.7 4z6ssct surface area. The physician must decide which [...] normal [facility] Serum or Plasma [facility] Bilirubin.total 0.3 mg/dL 0.2-1.0 [facility] [Mass/volume] in Serum or [facility] Plasma Alanine aminotransferase 37 U/L 13-61 [facility] [Enzymatic activity/volume] [facility] in Serum or Plasma Aspartate aminotransferase 22 U/L 15-37 [facility] HS - Good [Enzymatic activity/volume] [facility] in Serum or Plasma by With P-5'-P Alkaline phosphatase 98 U/L 45-117 [facility] ood [Enzymatic activity/volume] [facility] in Serum or Plasma Protein [Mass/volume] in 7.0 g/dL 6.4-8.2 [facility] Serum or Plasma [facility] ital Albumin [Mass/volume] in 3.7 g/dL 3.5-4.7 [facility] Serum or Plasma by [facility] ospital Bromocresol purple (BCP) dye binding method Globulin [Mass/volume] in 3.3 g/dL 1.7-4.7 [facility] Serum by calculation [facility] Albumin/Globulin [Mass 1.1 0.7-2.8 [facility] Ratio] in Serum or Plasma [facility] ID Date Data Source [id number] 08/16/2019 09:44:39 PM EST [facility] Name Value Range Interpretation Description Data Sup porting Code Source(s) Document(s ) Magnesium 2.3 mg/dL 1.6-2.6 [facility] [Mass/volume] [facility] in Serum or Hospital Plasma ID Date Data Source [id number] 08/16/2019 09:23:23 PM EST [facility] Name Value Range Interpretation Description Data Sup porting Code Source(s) Document(s ) Leukocytes 7.6 K/uL 4.8-10.6 [facility] - [#/volume] in Good Blood by [facility] Automated count Hospital Erythrocytes 4.97 4.70-6.0 [facility] - [#/volume] in M/uL 0 Good Blood by [facility] Automated [facility] Hemoglobin 15.2 14.0-18. [facility] - [Mass/volume] in g/dL 0 [facility] Blood [facility] Hematocrit 45.0 % 42.0-52. [facility] - [Volume 0 Good Fraction] of [facility] Blood by Hospital Automated count Erythrocyte mean 90.5 FL 81.0-94. [facility] - corpuscular 0 Good volume [Entitic [facility] volume] by [facility] Automated count Erythrocyte mean 30.6 PG 27.0-35. [facility] - corpuscular 0 Good hemoglobin [facility] [Entitic mass] [facility] by Automated count Erythrocyte mean 33.8 30.7-37. [facility] - corpuscular g/dL 3 Good hemoglobin [facility] [Mass/volume] by Automated count Erythrocyte 13.0 % 11.5-14. [facility] - distribution 0 Good width [Ratio] by [facility] Automated count [facility] Platelets 183 K/uL 130-400 [facility] - [#/volume] in Good Blood by [facility] Automated count [facility] Platelet mean 8.5 FL 9.2-11.8 Below low normal [facility] - volume [Entitic Good volume] in Blood [facility] Hospital count Nucleated 0.0 PER 0 [facility] - erythrocytes/100 100 WBC Good leukocytes [facility] [Ratio] in Blood [facility] Nucleated 0.00 0.0-0.01 [facility] - erythrocytes K/uL Good [#/volume] in [facility] Segmented 68 % 48.0-72. [facility] - neutrophils/100 0 Good leukocytes in [facility] Lymphocytes/100 19 % 18.0-40. [facility] - leukocytes in 0 [facility] Blood [facility] Monocytes/100 7 % 2.0-12.0 [facility] - leukocytes in [facility] Blood [facility] Eosinophils/100 5 % 0.0-7.0 [facility] - leukocytes in [facility] Blood [facility] Basophils/100 1 % 0.0-3.0 [facility] - leukocytes in [facility] Blood [facility] Immature 1 % 0-0.5 Above high normal [facility] - granulocytes/100 Good leukocytes in [facility] Blood by Hospital Automated count Segmented 5.2 K/UL 2.3-7.6 [facility] - neutrophils Good [#/volume] in [facility] Lymphocytes 1.5 K/UL 0.9-4.2 [facility] - [#/volume] in [facility] Monocytes 0.6 K/UL 0.1-1.7 [facility] - [#/volume] in [facility] Eosinophils 0.3 K/UL 0.0-1.0 [facility] - [#/volume] in [facility] Basophils 0.0 K/UL 0.0-0.4 [facility] - [#/volume] in [facility] Immature 0.0 K/UL 0.0-0.17 [facility] - granulocytes Good [#/volume] in [facility] by [facility] Automated count Differential [facility] - cell count Good method [facility] ID Date Data Source [id number] 08/16/2019 08:50:30 PM EST [facility] sudden onset of difficulty breathing and rash while eating leticia food, rashacross face and chest slightly raised, no vesicles, denies any chest pain deniesany itching at this time. Went to [facility], recei nataliia benadryl 50 mg IMfrom EMS. Name Value Range Interpretation Code Description Data [facility] Supporting Document(s ) ID Date Data Source [id number] 08/11/2019 08:03:02 AM EST [facility] History:Chest pain. Shortness of breath. 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 No wheezing or rales.Abdo ellito: General: Bowel sounds are normal. There is [...] QTC Calculation (Bezet) 435 ms Calculated P Sunray 55 degrees Calculated R Sunray 34 degrees Calculated T Sunray 9 degrees Diagnosis S inus tachycardiaOtherwise normal [...] Time: 08/11/19 12:01 AMResult Value Ref Range Plaza level <0.20 (L) 0.6 - 1.2 MMOL/LLACTIC [...] Sinus ta chycardia at 102 BPM. Interpreted byMyaank Quezada MD.Radiology:chest X-ray demons trates no acute [...] serving as a scribe to document servi jaoxn personallyperformed by Mayank Quezada MD based on [...] 36N*ENCOUNTER 08/11/2019 01:42:54 AM EST [facility] [id number] [facility] EMERG[facility]Y [facility] [address] [facility] [address] [phone] Maxwell Mitchell Anam (Male) [id number] JOSE 2 ED Dispo:DISCHARGE Chief Complaint: Chest Pain, Shortne ss of Breath Diagnosis: Dyspnea, unspecified type [] Current Providers: Atte nding: Javier Quezada Primary Nurse: ELIS WilsonN: [id number] Print Grou p [phone] - Bshsi Ed Medva MrnMRN: [id number] Print Group [phone] - Bs hsi Ed Medva Age SexDOB 1970 AGE 49 SEX Male Primary Care Provider: Ritika Canas MD Phone: 1 [phone]: (No Known Allergies)Date Reviewed: 08/10/2019Reviewed by: Chiquis Christianson CompleteED Provider Notes: No notes of this type exist for this encounter.ED Orders [id number] E KG, 12 LEAD, INITIAL [#[id number]] Priority: STAT Class: Hospital Performed Stand ing Order Information Remaining Occurrences:0/1 Interval:ONE TIME Last released:0 08/10/2019 Released orders: [place] Aug 10, 2019 10:17 PM by: CHIQUIS CHRISTIANSON Reason for Exam: -> CP SOB [id number] EKG, 12 LEAD, INITIAL [#[id number]] Priority: STAT Class: Hospital Performed Specimen Collected: 08/10/2019 10:14 PM Resulting Agency: [facility] Test ID: [id number] Reason for Exam: -> CP SOB Released on: 08/10/2019 10:17 PM [id number] EKG, 12 LE AD, INITIAL [#[id number]] Priority: STAT Class: Hospital Performed Standing Or mariano Information Remaining Occurrences:0/1 Interval:ONE TIME Last released:0 08/10/2019 Released orders: [place] Aug 10, 2019 11:51 PM by: MAYANK QUEZADA V Reason fo r Exam: -> Chest Pain [id number] EKG, 12 LEAD, INITIAL [#[id number]] Priority: STAT C lass: Hospital Performed Resulting Agency: [facility] Test ID: [id number] Reason for Exam: -> Chest P ain Released on: 08/10/2019 11:51 PM [id number] RN PLASTIC SURGERY - ED ONLY [#[id number]] Priority: STAT Class: Hospital Performed Standing Order Information Remaining Occurre nces:0/1 Interval:Continuous Last released:08/10/2019 Released orders : [place] Aug 10, 2019 11:51 PM by: MAYANK QUEZADA V Type: -> Bedside [id number] PULSE OXIMETR Y CONTINUOUS [#[id number]] Priority: STAT Class: Hospital Performed Standing Or mariano Information Remaining Occurrences:0/1 Interval:CONTINUOUS Last released :08/10/2019 Released orders: [place] Aug 10, 2019 11:51 PM by: MAYANK QUEZADA V [id number] PULSE OXIMETRY SPOT CHECK [#[id number]] Priority: STAT Class: Hospital Performe d Standing Order Information Remaining Occurrences:0/1 Interval:ONE TIME Last r eleased:08/10/2019 Released orders: [place] Aug 10, 2019 11:51 PM by: MAYANK QUEZADA V NU [id number] OBTAIN OLD EKG [#[id number]] Priority: Routine Class: Hospital Perfo rmed Standing Order Information Remaining Occurrences:0/1 Interval:ONE TI ME Last released:08/10/2019 Released orders: [place] Aug 10, 2019 11:51 PM by: MAYANK QUEZADA V [id number] RN PLASTIC SURGERY - ED ONLY [#[id number]] Priority: STAT Class: H ospital Performed Type: -> Bedside Released on: 08/10/2019 11:51 PM [id number] PULSE OXIM ETRY CONTINUOUS [#[id number]] Priority: STAT Class: Hospital Performed Released on : 08/10/2019 11:51 PM [id number] PULSE OXIMETRY SPOT CHECK [#[id number]] Priority: STAT C lass: Hospital Performed Released on: 08/10/2019 11:51 PM [id number] OBTAIN OLD EKG [#[id number]] Priority: STAT Class: Hospital Performed Released on: 08/10/2019 11: 51 PM [id number] RT--OXYGEN CANNULA [#[id number]] Priority: STAT Class: H ospital Performed Standing Order Information Remaining Occurrences:0/1 Interval:CONTIN UOUS Last released:08/10/2019 Released orders: [place] Aug 10, 2019 11:51 PM by: MAYANK PRADO V Comment:TITRATE UP TO 4 L / MINUTE TO MAINTAIN O2 SATS GREATER THAN OR EQUAL TO 94% LPM -> 2 Indications for O2? -> CHEST PAIN [id number] RT--OXYGEN CANNULA [#[id number]] Priority: STAT Class: Hospital Performed Comment:TITRATE UP TO 4 L / MINUTE TO MAINTAIN O2 SATS GREATER THAN OR EQUAL TO 94% LPM -> 2 Indications fo r O2? -> CHEST PAIN Released on: 08/10/2019 11:51 PM [id number] DIET NPO [#[id number]] Priority: STAT Class: Hospital Performed Standing Order Information Remaining Occurrences:0/1 Interval:DIET EFFECTIVE NOW Last released:08/10 Released orders: [place] Aug 10, 2019 11:51 PM by: MAYANK QUEZADA V NPO options: - > With Meds [id number] DIET NPO [#[id number]] Priority: STAT Class: H ospital Performed NPO options: -> With Meds Released on: 08/10/2019 11:51 PM [id number] SALINE LOCK IV [#[id number]] Priority: STAT Class: Hospital Performed Standing O rder Information Remaining Occurrences:0/1 Interval:ONE TIME Last released:0 08/10/2019 Released orders: [place] Aug 10, 2019 11:51 PM by: MAYANK QUEZADA V [id number] SALI NE LOCK IV [#[id number]] Priority: STAT Class: Hospital Performed Relea sed on: 08/10/2019 11:51 PM [id number] METABOLIC PANEL, COMPREHENSIVE [#[id number]] Bridgette ority: STAT Class: ER Collect Standing Order Information Remaining Occurrences:0/1 In terval:ONE TIME Last released:08/10/2019 Released orders: [place] Aug 10, 2019 11:51 PM by: MAYANK QUEZADA V [id number] CBC WITH AUTOMATED DIFF [#[id number]] Priority: STAT Class: ER Collect Standing Order Information Remaining Occurrences:0/1 Inter haile:ONE TIME Last released:08/10/2019 Released orders: [place] Aug 10, 2019 11:51 PM by: MAYANK QUEZADA V [id number] TROPONIN I [#[id number]] Priority: STAT Class: ER Collect Standing Order Information Remaining Occurrences:0/1 Inter haile:ONE TIME Last released:08/10/2019 Released orders: [place] Aug 10, 2019 11:51 PM by: MAYANK QUEZADA V [id number] MAGNESIUM [#[id number]] Priority: STAT Class: ER Collect Standing Order Information Remaining Occurrences:0/1 Inter haile:ONE TIME Last released:08/10/2019 Released orders: [place] Aug 10, 2019 11:51 PM by: MAYANK QUEZADA V [id number] BNP [#[id number]] Priority: STAT Class: ER Collect Standing Order Information Remaining Occurrences:0/1 Inter haile:ONE TIME Last released:08/10/2019 Released orders: [place] Aug 10, 2019 11:51 PM by: MAYANK QUEZADA V [id number] D DIMER [#[id number]] Priority: STAT Class: ER Collect Standing Order Information Remaining Occurrences:0/1 Inter haile:ONE TIME Last released:08/10/2019 Released orders: [place] Aug 10, 2019 11:51 PM by: MAYANK QUEZADA V [id number] PROTHROMBIN TIME + INR [#[id number]] Priority: STAT Class: ER Collect Standing Order Information Remaining Occurrences:0/1 Inter haile:ONE TIME Last released:08/10/2019 Released orders: [place] Aug 10, 2019 11:51 PM by: MAYANK QUEZADA V [id number] PTT [#[id number]] Priority: STAT Class: ER Collect Specimen Source: Blood Standing Order Information Remaining Occurrences:0 /1 Interval:ONE TIME Last released:08/10/2019 Released orders: [place] Aug 10, 2019 11:51 PM by: MAYANK QUEZADA V [id number] LITHIUM [#[id number]] Pr iority: STAT Class: ER Collect Standing Order Information Remaining Occurrences:0/1 I nterval:ONE TIME Last released:08/10/2019 Released orders: [place] Aug 10, 2019 11:51 PM by: MAYANK QUEZADA V [id number] METABOLIC PANEL, COMPREHENSIVE [#[id number]] Bridgette ority: STAT Class: ER Collect Specimen Source: Plasma Specimen Collected: 08/11/2019 12:01 AM Resulting Agency: [facility] Test ID: MPL Released on: 08/10/2019 11:51 PM [id number] CBC WITH AUTOMATED DIFF [#[id number]] Priority: STAT Class: E R Collect Specimen Source: Whole Blood Specimen Collected: 08/11/2019 12:01 AM Resulting Agency: [facility] Test ID: [id number] Released on: 08/10/2019 11:51 PM [id number] TROPON IN I [#[id number]] Priority: STAT Class: ER Collect Specimen Source: [place] sma Specimen Collected: 08/11/2019 12:01 AM Resulting [facility]: [facility] RY Test ID: TROIP Released on: 08/10/2019 11:51 PM [id number] MAGNESIUM [#[id number]] Priority: STAT Class: ER Collect Specimen Source: Plasma Specimen Collec hyun: 08/11/2019 12:01 AM Resulting Agency: [facility] Test ID: [id number] Re leased on: 08/10/2019 11:51 PM [id number] BNP [#[id number]] Priority : STAT Class: ER Collect Specimen Source: Plasma Specimen Collected: 08/11/2019 12:01 AM Resultin g Agency: [facility] Test ID: BNPPB Released on: 08/10/2019 11:51 PM [id number] D DIMER [#[id number]] Priority: STAT Class: ER Collect Speci men Source: Plasma Specimen Collected: 08/11/2019 12:01 AM Resulting Agency: [facility] Test ID: [id number] Released on: 08/10/2019 11:51 PM [id number] PROTHROMBIN TIME + INR [#[id number]] Priority: STAT Class: ER Collect Specimen Source: Plasma Specimen Collec hyun: 08/11/2019 12:01 AM Resulting Agency: [facility] Test ID: APTHR R eleased on: 08/10/2019 11:51 PM [id number] PTT [#[id number]] Priorit y: STAT Class: ER Collect Specimen Source: Plasma Specimen Collected: 08/11/2019 12:01 AM Resultin g Agency: [facility] Test ID: APTT Released on: 08/10/2019 11:51 PM [id number] LITHIUM [#[id number]] Priority: STAT Class: ER Collect Speci men Source: Serum Specimen Collected: 08/11/2019 12:01 AM Resulting Agency: [facility] Test ID: LI Released on: 08/10/2019 11:51 PM [id number] LACTIC ACID [#[id number]] Priority: STAT Class: ER Collect Standing Order Information Remainin g Occurrences:0/1 Interval:ONE TIME Last released:08/11/2019 Released orders : Mon Aug 11, 2019 12:15 AM by: KATI WILSON [id number] LACTIC ACID [#[id number]] Priority: STAT Class: ER Collect Specimen Source: Plasma Specimen Collec hyun: 08/11/2019 12:01 AM Resulting Agency: [facility] Test ID: LAC Rel eased on: 08/11/2019 12:15 AM ASPIRIN 81 MG CHEWABLE TAB [#[id number]] Priority: STAT Class: Normal [id number] XR CHEST PORT [#[id number]] Priority: STAT Cl ass: Hospital Performed Standing Order Information Remaining Occurrences:0/1 Inter haile:ONE TIME Last released:08/10/2019 Released orders: Sun Aug 10, 2019 11:51 PM by: MAYANK QUEZADA V Reason for Exam -> Chest Pain [id number] XR CHEST PORT [#[id number]] Priority: STAT Class: Hospital Performed Resulting Agency: [facility] Test ID: [id number] Reason for Exam -> Chest Pain Released on: 08/10/2019 11:51 PM [id number] INFLUENZA A & B AG (RAPID TEST) [#[id number]] Priority: STAT Class: ER Collect Sta nding Order Information Remaining Occurrences:0/1 Interval:ONE TIME Last released: 08/10/2019 Released orders: Sun Aug 10, 2019 11:51 PM by: MAYANK QUEZADA V [id number] INFL UENZA A & B AG (RAPID TEST) [#[id number]] Priority: STAT Class: ER Collect Specimen Source : Nasal washing Specimen Collected: 08/11/2019 12:18 AM Resulting Agency: [facility] Test ID: INFLUA Released on: 08/10/2019 11:51 PM [id number] CULTURE, BLOOD [#[id number]] Priority: STAT Class: ER Collect Specimen Source: Blood Standing Order Information Remaining Occurrences:0/1 Interval:ONE TIME Last released:0 08/11/2019 Released orders: SunAug 11, 2019 12:15 AM by: KATI WILSON [id number] CULTU RE, BLOOD [#[id number]] Priority: STAT Class: ER Collect Specimen Source : Blood Standing Order Information Remaining Occurrences:0/1 Interval:ONE TI ME Last released:08/11/2019 Released orders: SunAug 11, 2019 12:15 AM by: KATI WILSON [id number] CULTURE, BLOOD [#[id number]] Priority: STAT Class: E R Collect Specimen Source: Blood Specimen Collected: 08/11/2019 12:33 AM Resulting Agency: [facility] Test ID: HBCS Released on: 08/11/2019 12:15 AM [id number] ALEK SWARTZ [#[id number]] Priority: STAT Class: ER Collect Specimen Source: Calli od Specimen Collected: 08/11/2019 12:43 AM Resulting Agency: [facility] Test ID: HBCS Released on: 08/11/2019 12:15 AMMaxwell Bray MR#: [id number] Acct#: [id number]* Rm: [id number]: 5' 10" Wt: 280 lb Code: Prior Iso:Diagnosis:Allergies: No Kno wn Allergies -------- Current as of: 08/11/19141 GI=Given -------aspirin (ASPIRIN) tablet 325 mg #[id number] Admin Amount: 1 Tab (1 x 325 mg Tab) Ordered Dose: 325 mg Route: Oral Freq: ONCE Start Date: 12/24/13 No administration times (b ack 96 hours, ahead 96 hours). ------diphenhydrAMINE (BENADRYL) capsule 50 mg #[id number] Admin Amount: 1 Cap (1 x 50 mg Cap) Ordered Dose: 50 mg [place]: Oral Freq: NOW Start Date: 12/24/13 No administration times (back 96 hours, ahead 96 hours). ------diazepam (VALIUM) tablet 5 mg #[id number] Admin Amount: 1 Tab (1 x 5 mg Tab) Ordered Dose: 5 mg Route: Oral Freq: ONCE Start Date: 12/24/13 No administration times (back 96 hours, ahead 96 hours). ------lidocaine (XYLOCAINE) 10 mg/mL (1 %) injection 1-3 0 mL #[id number] Admin Amount: 1-30 mL Ordered Dose: 1-30 mL Route: Int raDERMal Freq: ONCE Start Date: 12/24/13 No administration times (back 96 hours, ahead 96 hours). ------heparin (PF) 2 units/ml in NS infusion 2,000 Units #[id number] Admin Amount: 1,000 mL = 2,000 Units of 2 Units/mL Ordered Dose: 1,000 mL Route: Irrigation Freq: ONCE Start Date: 12/24/13 No administration times (back 96 hours, ahead 96 hours). ------heparinized saline 2 units/mL infusion 1,000 Units #[id number] Admin Amount: 500 mL = 1,000 Units of 2 Units/mL Ordered Dose: 500 m L Route: IntraarTERial Freq: ONCE Start Date: 12/24/13 No admini stration times (back 96 hours, ahead 96 hours). ------0.9% sodium chloride infusion #[id number] Ordered Dose: 75 mL/hr Route: IntraVENous Freq: CONTINUOUS Start Date: 12/24/13 Rate: 75 mL/hr Duration: No administration ti mes (back 96 hours, ahead 96 hours). ------ioversol (OPTIRAY) 320 mg iodine/mL contrast inje ction 1-100 mL #[id number] Admin Amount: 1-100 mL Ordered Dose: 1-100 mL [place]: IntraVENous Freq: RAD ONCE Start Date: 12/24/13 No administration times (back 96 hours, ahead 96 hours).Maxwell Bray MR#: [id number] * Rm: [id number] Ht: 5' 10" Wt: 280 lb Code: Prior Iso:Diagnosis:Allergies: No Known Allergies -------- Current as of: 08/11/19 0142 GI=Given -------gadobutrol (GADAVIST) contrast solution 1-10 mL #[id number] Admin Amount: 1-10 mL Ordered Dose: 1-10 mL Route: Int raVENous Freq: RAD ONCE Start Date: 01/13/14 No administration times (back 96 hours, ahead 96 hours). ------sodium chloride (NS) flush 5-10 mL #[id number] Admin Amount: 5-10 mL Ordered Dose: 5-10 mL Route: IntraVENo us Freq: RAD ONCE Start Date: 01/13/14 No administration times (back 96 hours, ahe ad 96 hours). ------sodium chloride (NS) 0.9 % flush #[id number] Ordered Dose: Route: Freq: Start Date: 01/13/14 No administration times (back 96 hours, ahead 96 hours). ------morphine injection 2 mg #[id number] Admin Amount: 1 mL = 2 mg of 2 mg/mL Ordered Dose: 2 mg Route: IntraVENous Freq: NOW Start Date: 03/13/15 No administration t imes (back 96 hours, ahead 96 hours). ------influenza vaccine (4 yr+)(PF) (FLUCELVAX Q UAD) injection 0.5*#[id number] Admin Amount: 0.5 mL Ordered Dose: 0.5 mL Route: Int raMUSCular Freq: PRIOR TO DISCHARGE Start Date: 03/30/16 No administration times (back 9 6 hours, ahead 96 hours). ------oxyCODONE-acetam inophen (PERCOCET) 5-325 mg per tablet 1 Tab #[id number] Admin Amount: 1 Tab Ordered Dose: 1 Tab Route: Oral Freq: NOW Start Date: 09/07/17 No administration times (back 96 hours, ahe ad 96 hours). ------barium sulfate (READICAT) 2.1 % (w/v), 2.0 % (w/w) oral suspension 9*#[id number] Admin Amount: 900 mL Ordered Dose: 900 mL Route: Oral [place] q: RAD ONCE Start Date: 10/15/17 No administration times (back 96 hours, ahe ad 96 hours). ------iopamidol (ISOVUE 300) 61 % contrast injection 100 mL #[id number] Admin Amount: 100 mL Ordered Dose: 100 mL Route: Int raVENous Freq: RAD ONCE Start Date: 10/15/17 No administration times (back 96 hours, ahead 96 hours).Maxwell Bray MR#: [id number] * Rm: [id number]: 5' 1 0" Wt: 280 lb Code: Prior Iso:Diagnosis:Allergies: No Known Allergies -------- Current as of: 08/11/192 GI=Given -------risperiDONE (RisperDAL m-tabs) disintegrating tablet 1 mg #[id number] Admin Amount: 1 Tab (1 x 1 mg Tab) Ordered Dose: 1 mg Route: Oral Freq: ONCE Start Date: 12/24/17 No administration times (back 96 hours, ahead 96 hours). ------ALPRAZolam (XANAX) tablet 2 mg #[id number] Admin Amount: 4 Tab (4 x 0.5 mg Tab) Ordered Dose: 2 mg Route: Oral Freq: NOW Start Date: 12/24/17 No administration times (back 96 hours, ahead 96 hours). ------lamoTRIgine (LaMICtal) tablet 100 mg #[id number] Admin Amount: 1 Tab (1 x 100 mg Tab) Ordered Dose: 100 mg Route: Oral Freq: ONCE Start Date: 12/24/17 No administration times (back 96 hours, ahead 96 hours). ------OLANZapine (ZyPREXA zydis) disintegrating tablet 5 mg #[id number] Admin Amount: 1 Tab (1 x 5 mg Tab) Ordered Dose: 5 mg Route: Oral Freq: ONCE Start Date: 12/25/17 No administration times (back 96 hours, ahead 96 hours). ------LORazepam (ATIVAN) tablet 2 mg #[id number] Admin Amount: 4 Tab (4 x 0.5 mg Tab) Ordered Dose: 2 mg Route: Oral Freq: NOW Start Date: 12/25/17 No administration times (back 96 hours, ahead 96 hours). ------LORazepam (ATIVAN) injection 1 mg #[id number] Admin Amount: 0.5 mL = 1 mg of 2 mg/mL Ordered Dose: 1 mg Route: IntraVENous Freq: NOW Start Date: 12/25/17 No administration ti mes (back 96 hours, ahead 96 hours). ------barium sulfate (EZ PAQUE) 96 % (w/w) contrast suspensio n 176 g #[id number] Admin Amount: 176 g Ordered Dose: 176 g Route: Oral [place] q: RAD ONCE Start Date: 08/02/18 No administration times (back 96 hours, [facility] ad 96 hours). ------barium sulfate (EZ PAQUE) 96 % (w/w) contrast suspensio n 176 g #[id number] Admin Amount: 176 g Ordered Dose: 176 g Route: Oral [place] q: RAD ONCE Start Date: 08/02/18 No administration times (back 96 hours, e ad 96 hours).Maxwell Bray MR#: [id number] * Rm: [id number]: 5' 10" Wt: 280 lb Code: Prior Iso:Diagnosis:Allergies: No Known Allergies -------- Current as of: 08/11/19 0142 GI=Given -------aspirin chewable tablet 162 mg #[id number] Admin Amount: 2 Tab (2 x 81 [...] visit in 1 dayComments:Contact Info:Chino Rodriguez [address] [facility] [id number] With:Detail s:Comments:As needed, If symptoms worsenContact Info: Name Value Range Interpretation Code Description Data Melani rce(s) Supporting Document(s ) ID Date Data Source [id number] 08/11/2019 01:40:37 AM EST [facility] I have reviewed discharge instructions w ith the patient and spouse. The patientand spouse verbalized understanding.\\ Name Value Range Interpretation Code Description Data Melani rce(s) Supporting Document(s ) ID Date Data Source [id number] 08/16/2019 06:35:29 AM [facility] Name Value Range Interpretation Description Data Sup porting Code Source(s) Document(s ) Service comment [facility] Bacteria [facility] - Good [facility] ID Date Data Source [id number] 08/16/2019 06:35:28 AM [facility] Name Value Range Interpretation Description Data Sup porting Code Source(s) Document(s ) Service comment [facility] Bacteria BSS - Good identified in [facility] specimen by Culture ID Date Data Source [id number] 08/11/2019 12:56:01 AM EST [facility] Name Value Range Interpretation Description Data Sup porting Code Source(s) Document(s ) Influenza virus NEG [facility] A Ag [Presence] [facility] in [facility] by Immunoassay Influenza virus NEG [facility] B Ag [Presence] [facility] by Immunoassay IMMUNOCHROMATOGRAPHIC MEMBRANE ASSAYResu lt: Negative for Influenza A and BNote: A negative result does not exclude an infl uenza virus infection, including H1N1. If more conclusive testing is desired, foll ow-up confirmatory testing is warranted. Specimen source [Identifier] of Unspecified [facility] specimen ID Date Data Source [id number] 08/11/2019 01:35:58 AM EST [facility] Value Range Interpretation Description Data Sup porting Code Source(s) Document(s ) Prothrombin 9.6 sec 9.4-11.1 BSS - [facility] time (PT) [facility] INR in 0.9 0.8-1.2 [facility] - Good Platelet poor [facility] plasma by Hospital Coagulation assay ID Date Data Source [id number] 08/11/2019 01:35:58 AM EST [facility] Value Range Interpretation Description Data Sup porting Code Source(s) Document(s ) aPTT in 23.1 SEC 21.0-28. [facility] - Good Platelet poor 0 [facility] plasma by Hospital Coagulation assay Therapeutic Range = 42.0-60.0 secs ID Date Data Source [id number] 08/11/2019 01:30:36 AM EST [facility] Value Range Interpretation Description Data Sup porting Code Source(s) Document(s ) Natriuretic 19 pg/mL 0-100 [facility] peptide [facility] [Mass/volume] [facility] in Serum or Plasma ID Date Data Source [id number] 08/11/2019 01:25:10 AM EST [facility] Value Range Interpretation Code Description Data Supporting Source(s) Document(s ) Plaza 0.6-1.2 Below low normal [facility] - Good [Moles/volum [facility] e] in Serum Hospital or Plasma ID Date Data Source [id number] 08/11/2019 01:20:56 AM EST [facility] Value Range Interpretation Code Description Data Melani rce(s) Supporting Document(s ) Fibrin <500 BSS - [facility] D-dimer [facility] [Mass/volume] [facility] in Platelet poor plasma (NOTE)Combination of a D-Dimer result wi thin the reference range and a lowclinical pretest probability has good negative pr edictive value fordeep venous thrombosis.If results are utilized for VTE evaluation, <500 ng/ml is consideredto be negative. ID Date Data Source [id number] 08/11/2019 01:09:42 AM EST [facility] Value Range Interpretation Description Data Sup porting Code Source(s) Document(s ) Lactate 1.7 0.4-2.0 [facility] - Good [Moles/volu MMOL/L [facility] nh] in Hospital Serum or Plasma ID Date Data Source [id number] 08/11/2019 01:09:42 AM [facility] Name Value Range Interpretation Description Data Sup porting Code Source(s) Document(s ) Troponin 0.00-0.05 [facility] - Good I.cardiac [facility] [Mass/volume Hospital ] in Serum or Plasma [...] to 1.50 ng/mL ID Date Data Source [id number] 08/11/2019 01:09:42 AM [facility] Interpretation Description Data Sup porting Code Source(s) Document(s ) Sodium 140 136-145 [facility] - Good [Moles/volume] mmol/L [facility] in Serum or Hospital Plasma Potassium 3.9 3.5-5.1 [facility] - Good [Moles/volume] mmol/L [facility] in Serum or Hospital Plasma Chloride 113 98-107 Above high normal [facility] - Good [Moles/volume] mmol/L [facility] in Serum or Hospital Plasma Carbon 21 21-32 [facility] - Good dioxide, total mmol/L [facility] [Moles/volume] Hospital in Serum or Plasma Anion gap in 10 10-20 [facility] - Good Serum or mmol/L [facility] Plasma Hospital Glucose 90 mg/dL 74-106 [facility] - Good [Mass/volume] [facility] in Serum or Hospital Plasma Urea nitrogen 18 mg/dL 7-18 [facility] - Good [Mass/volume] [facility] in Serum or Hospital Plasma Creatinine 0.78 0.70-1.3 [facility] - Good [Mass/volume] mg/dL 0 [facility] in Serum or Hospital Plasma Glomerular >60 [facility] - Good filtration [facility] rate/1.73 sq M Hospital predicted among blacks [Volume Rate/Area] in Serum or Plasma by Creatinine-bas ed formula (MDRD) Glomerular >60 [facility] - Good filtration [facility] rate/1.73 sq M Hospital predicted among non-blacks [Volume Rate/Area] in Serum or Plasma by Creatinine-bas ed formula (MDRD) (NOTE)Estimated GFR is calculated using the Modification of Diet in RenalDisease (MDRD) Study equation, reported for both Americans(GFRAA) and non- Americans (GFRNA), and normalized to 1.7 0m8uipo surface area. The physician must decide which [...] normal [facility] - Good Serum or Plasma [facility] Hosp ital Bilirubin.total 0.5 mg/dL 0.2-1.0 [facility] - Good [Mass/volume] in Serum or [facility] Plasma Alanine aminotransferase 29 U/L 13-61 [facility] - Good [Enzymatic activity/volume] [facility] in Serum or Plasma Aspartate aminotransferase 18 U/L 15-37 [facility] HS - Good [Enzymatic activity/volume] [facility] in Serum or Plasma by With P-5'-P Alkaline phosphatase 98 U/L 45-117 [facility] - G ood [Enzymatic activity/volume] [facility] in Serum or Plasma Protein [Mass/volume] in 6.7 g/dL 6.4-8.2 [facility] - Good Serum or Plasma [facility] Hosp ital Albumin [Mass/volume] in 3.4 g/dL 3.5-4.7 Below low normal [facility] - Good Serum or Plasma by [facility] oslydiatal Bromocresol purple (BCP) dye binding method Globulin [Mass/volume] in 3.3 g/dL 1.7-4.7 [facility] - Good Serum by [facility] Albumin/Globulin [Mass 1.1 0.7-2.8 [facility] - Good Ratio] in Serum or Plasma [facility] ID Date Data Source [id number] 08/11/2019 01:09:42 AM EST [facility] - Good [facility] Name Value Range Interpretation Description Data Sup porting Code Source(s) Document(s ) Magnesium 2.1 mg/dL 1.6-2.6 [facility] - Good [Mass/volume] [facility] in Serum or Hospital Plasma ID Date Data Source [id number] 08/11/2019 01:01:18 AM EST [facility] - Good [facility] Name Value Range Interpretation Description Data Sup porting Code Source(s) Document(s ) Leukocytes 7.7 K/uL 4.8-10.6 [facility] - [#/volume] in Good Blood by [facility] Automated [facility] Erythrocytes 4.93 4.70-6.0 [facility] - [#/volume] in M/uL 0 Good Blood by [facility] Automated [facility] Hospital Hemoglobin 14.9 14.0-18. [facility] - [Mass/volume] in g/dL 0 Good Blood [facility] Hematocrit 44.4 % 42.0-52. [facility] - [Volume 0 Good Fraction] of [facility] Blood by [facility] Automated count Erythrocyte mean 90.1 FL 81.0-94. [facility] - corpuscular 0 Good volume [Entitic [facility] volume] by Hospital Automated count Erythrocyte mean 30.2 PG 27.0-35. [facility] - corpuscular 0 Good hemoglobin [facility] [Entitic mass] [facility] by Automated count Erythrocyte mean 33.6 30.7-37. [facility] - corpuscular g/dL 3 Good hemoglobin [facility] concentration [facility] [Mass/volume] by Automated count Erythrocyte 12.5 % 11.5-14. [facility] - distribution 0 Good width [Ratio] by [facility] count [facility] Platelets 189 K/uL 130-400 [facility] - [#/volume] in Good Blood by [facility] Platelet mean 9.0 FL 9.2-11.8 Below low normal [facility] - volume [Entitic Good volume] in Blood [facility] by Automated Hospital count Nucleated 0.0 PER 0 [facility] - erythrocytes/100 100 WBC Good leukocytes [facility] [Ratio] in Blood Hospital Nucleated 0.00 0.0-0.01 [facility] - erythrocytes K/uL Good [#/volume] in [facility] Segmented 59 % 48.0-72. [facility] - neutrophils/100 0 Good leukocytes in [facility] Lymphocytes/100 29 % 18.0-40. [facility] - leukocytes in 0 [facility] Monocytes/100 7 % 2.0-12.0 [facility] - leukocytes in [facility] Eosinophils/100 5 % 0.0-7.0 [facility] - leukocytes in [facility] Basophils/100 1 % 0.0-3.0 [facility] - leukocytes in [facility] Immature 0 % 0-0.5 [facility] - granulocytes/100 Good leukocytes in [facility] Blood by Hospital Automated count Segmented 4.6 K/UL 2.3-7.6 [facility] - neutrophils Good [#/volume] in [facility] Lymphocytes 2.2 K/UL 0.9-4.2 [facility] - [#/volume] in [facility] Monocytes 0.5 K/UL 0.1-1.7 [facility] - [#/volume] in [facility] Eosinophils 0.4 K/UL 0.0-1.0 [facility] - [#/volume] in [facility] Basophils 0.1 K/UL 0.0-0.4 [facility] - [#/volume] in [facility] Immature 0.0 K/UL 0.0-0.17 [facility] - granulocytes Good [#/volume] in [facility] Blood by Hospital Automated count Differential [facility] - cell count Good method [facility] Procedure Social History Code Duration Value Status Description Data Source(s ) Alcohol intake 01/08/2020 Current completed Current [place] 12:00:00 AM EDT non-drinker non-drinker of [facility] of alcohol alcohol (finding) [employer] (finding) Tobacco use and 01/08/2020 Never used completed Never used [place] [facility] exposure 12:00:00 AM EDT [employer] Smoking 01/08/2020 Never smoker completed Never smoker [place] 12:00:00 AM EDT [employer] Alcohol intake 12/25/2019 Current completed Current [place] 12:00:00 AM EDT non-drinker non-drinker of [employer] of alcohol alcohol (finding) [employer] (finding) Tobacco use and 12/25/2019 Never used completed Never used [place] [facility] exposure 12:00:00 AM EDT [employer] Smoking 12/25/2019 Never smoker completed Never smoker [place] 12:00:00 AM EDT [employer] Alcohol intake 12/12/2019 Current completed Current [place] 12:00:00 AM EDT non-drinker non-drinker of [employer] | [employer] alcohol alcohol (finding) [employer] (finding) Smoking 12/12/2019 Never smoker completed Never smoker [place] 12:00:00 AM EDT [employer] Alcohol intake 12/05/2019 Current completed Current [place] 12:00:00 AM EDT non-drinker non-drinker of [employer] | [employer] alcohol alcohol (finding) [employer] (finding) Tobacco use and 12/05/2019 Never used completed Never used [place] [facility] exposure 12:00:00 AM EDT [employer] Smoking 12/05/2019 Never smoker completed Never smoker [place] 12:00:00 AM EDT [employer] Alcohol intake 12/01/2019 Current completed Current [place] 12:00:00 AM EDT non-drinker non-drinker of [employer] of alcohol alcohol (finding) [employer] (finding) Smoking 12/01/2019 Never smoker completed Never smoker [place] 12:00:00 AM EDT [employer] Alcohol intake 11/14/2019 Current completed Current [place] 12:00:00 AM EDT non-drinker non-drinker of [employer] of alcohol alcohol (finding) [employer] (finding) Smoking 11/14/2019 Never smoker completed Never smoker [place] 12:00:00 AM EDT [employer] Alcohol intake 11/10/2019 Current completed Current [place] 12:00:00 AM EDT non-drinker non-drinker of [place] alcohol (finding) [employer] (finding) Smoking 11/10/2019 Never smoker completed Never smoker [place] 12:00:00 AM EDT [employer] Alcohol intake 09/06/2019 Current completed Current [place] 12:00:00 AM EDT non-drinker non-drinker of [employer] | [employer] alcohol alcohol (finding) [employer] (finding) Smoking 09/06/2019 Never smoker completed Never smoker [place] 12:00:00 AM EDT [employer] Alcohol intake 08/16/2019 Current completed Current [place] 12:00:00 AM EST non-drinker non-drinker of [place] alcohol (finding) [employer] (finding) Smoking 08/16/2019 Never smoker completed Never smoker [place] 12:00:00 AM EST [employer] Alcohol intake 08/10/2019 Current completed Current [place] 12:00:00 AM EST non-drinker non-drinker of [employer] | [employer] alcohol alcohol (finding) [employer] (finding) Smoking 08/10/2019 Never smoker completed Never smoker [place] 12:00:00 AM EST [employer] Alcohol intake 07/21/2019 Current completed Current [place] 12:00:00 AM EST non-drinker non-drinker of [place] alcohol (finding) [employer] (finding) Smoking 07/21/2019 Never smoker completed Never smoker [place] 12:00:00 AM EST [employer] Vital Signs ID Date Data Source UNK Name Value Range Interpretation Code Description Data Source(s) Oxygen saturation 98 % 98 % [place] [facility] in Arterial blood [employer] by [employer] Body mass index 48.95 kg/m2 48.95 kg/m2 [place] [facility] (BMI) [Ratio] [employer] Body weight 136.533 kg 136.533 kg [place] [employer] Body height 167 cm 167 cm [place] [employer] Respiratory rate 12 /min 12 /min [place] [employer] Body temperature 36.56 May 36.56 May [place] [facility] [employer] Heart rate 102 /min 102 /min [facility] [email or web address] Diastolic blood 60 mm[Hg] 60 mm[Hg] [place] pressure [employer] Systolic blood 100 mm[Hg] 100 mm[Hg] [place] pressure [employer] Diastolic blood 80 mm[Hg] 80 mm[Hg] [place] rs pressure [employer] Systolic blood 122 mm[Hg] 122 mm[Hg] [place] s pressure [employer] Respiratory rate 20 /min 20 /min [facility] [employer] [facility] Heart rate 70 /min 70 /min [employer] [facility] Diastolic blood 70 mm[Hg] 70 mm[Hg] [facility] pressure [employer] Systolic blood 124 mm[Hg] 124 mm[Hg] [place] pressure [employer] Respiratory rate 18 /min 18 /min [facility] [employer] [facility] Body temperature 36.56 May 36.56 May [facility] [employer] Heart rate 88 /min 88 /min [employer] Diastolic blood 86 mm[Hg] 86 mm[Hg] [facility] pressure [employer] Systolic blood 110 mm[Hg] 110 mm[Hg] [place] pressure [employer] Oxygen saturation 98 % 98 % [facility] in Arterial blood [email or web address] by [employer] [facility] [employer] Body mass index 47.98 kg/m2 47.98 kg/m2 [facility] (BMI) [Ratio] [facility] Body weight 133.811 kg 133.811 kg [facility] Body height 167 cm 167 cm [facility] Respiratory rate 12 /min 12 /min [facility] [employer] Body temperature 36.67 May 36.67 May [facility] [employer] Heart rate 100 /min 100 /min [employer] Diastolic blood 66 mm[Hg] 66 mm[Hg] [facility] pressure [employer] Systolic blood 102 mm[Hg] 102 mm[Hg] [place] pressure [employer] Respiratory rate 20 /min 20 /min [facility] [employer] Heart rate 70 /min 70 /min [facility] Diastolic blood 68 mm[Hg] 68 mm[Hg] [place] [facility] pressure [employer] [facility] Systolic blood 120 mm[Hg] 120 mm[Hg] [place] pressure [employer] Respiratory rate 18 /min 18 /min [facility] Heart rate 68 /min 68 /min [email or web address] [facility] [employer] Diastolic blood 68 mm[Hg] 68 mm[Hg] [facility] pressure [employer] [facility] Systolic blood 112 mm[Hg] 112 mm[Hg] [place] pressure [employer] [facility] [employer] Respiratory rate 20 /min 20 /min [facility] Body temperature 36.56 May 36.56 May [facility] [employer] Heart rate 92 /min 92 /min [employer] Diastolic blood 70 mm[Hg] 70 mm[Hg] [facility] pressure [employer] [facility] [employer] Systolic blood 110 mm[Hg] 110 mm[Hg] [place] [facility] pressure [employer] [facility] [employer] Respiratory rate 20 /min 20 /min [facility] Heart rate 68 /min 68 /min [employer] [facility] [employer] Diastolic blood 72 mm[Hg] 72 mm[Hg] [facility] pressure [employer] Systolic blood 112 mm[Hg] 112 mm[Hg] [place] pressure [employer] Respiratory rate 20 /min 20 /min [facility] [facility] Heart rate 82 /min 82 /min [employer] Diastolic blood 66 mm[Hg] 66 mm[Hg] [facility] pressure [employer] [facility] [employer] Systolic blood 110 mm[Hg] 110 mm[Hg] [place] pressure [employer] [facility] [employer] Respiratory rate 14 /min 14 /min [facility] [employer] [facility] Body temperature 36.89 May 36.89 May [facility] [employer] [facility] Heart rate 72 /min 72 /min [employer] Diastolic blood 74 mm[Hg] 74 mm[Hg] [facility] pressure [facility] Systolic blood 128 mm[Hg] 128 mm[Hg] [place] pressure [employer] Respiratory rate 20 /min 20 /min [facility] [employer] [facility] Heart rate 68 /min 68 /min [facility] Diastolic blood 64 mm[Hg] 64 mm[Hg] [facility] pressure [employer] Systolic blood 108 mm[Hg] 108 mm[Hg] [place] pressure [employer] Respiratory rate 18 /min 18 /min [facility] [employer] Heart rate 80 /min 80 /min [employer] Diastolic blood 70 mm[Hg] 70 mm[Hg] [facility] pressure [employer] Systolic blood 98 mm[Hg] 98 mm[Hg] [place] pressure [employer] Respiratory rate 20 /min 20 /min [facility] [employer] [facility] Body temperature 36.56 May 36.56 May [place] [facility] [employer] [facility] Heart rate 78 /min 78 /min [employer] [facility] Diastolic blood 60 mm[Hg] 60 mm[Hg] [facility] pressure [employer] [facility] Systolic blood 110 mm[Hg] 110 mm[Hg] [place] pressure [employer] [facility] Body mass index 48.95 kg/m2 48.95 kg/m2 [facility] (BMI) [Ratio] [employer] [facility] Body weight 136.533 kg 136.533 kg [employer] Respiratory rate 18 /min 18 /min [facility] [employer] Body temperature 36.56 May 36.56 May [facility] [employer] [facility] Heart rate 80 /min 80 /min [employer] Diastolic blood 70 mm[Hg] 70 mm[Hg] [place] pressure [employer] Systolic blood 128 mm[Hg] 128 mm[Hg] [place] pressure [employer] Oxygen saturation 98 % 98 % [facility] in Arterial blood [employer] by [employer] [facility] [employer] Body mass index 48.95 kg/m2 48.95 kg/m2 [facility] (BMI) [Ratio] [employer] Body weight 136.533 kg 136.533 kg [employer] Body height 167 cm 167 cm [employer] Respiratory rate 14 /min 14 /min [facility] [employer] Body temperature 36.44 May 36.44 May [facility] [employer] Heart rate 98 /min 98 /min [facility] Diastolic blood 60 mm[Hg] 60 mm[Hg] [place] pressure [employer] Systolic blood 110 mm[Hg] 110 mm[Hg] [place] pressure [employer] Oxygen saturation 96 % 96 % [facility] in Arterial blood [employer] by [employer]ulse [facility] [employer] Respiratory rate 18 /min 18 /min [facility] [employer] Body temperature 36.72 May 36.72 May [facility] [employer] Heart rate 80 /min 80 /min [facility] [employer] Diastolic blood 88 mm[Hg] 88 mm[Hg] [place] [facility] pressure [employer] Systolic blood 128 mm[Hg] 128 mm[Hg] [place] pressure [employer] Body mass index 48.97 kg/m2 48.97 kg/m2 [facility] (BMI) [Ratio] [employer] [facility] Body weight 136.578 kg 136.578 kg [employer] Inc Body height 167 cm 167 cm [employer] Oxygen saturation 98 % 98 % [facility] in Arterial blood [employer] by [employer]ulse [facility] [employer] Body mass index 48.30 kg/m2 48.30 kg/m2 [facility] (BMI) [Ratio] [employer] Body weight 134.718 kg 134.718 kg [employer] Body height 167 cm 167 cm [employer] Respiratory rate 14 /min 14 /min [place] [facility] [employer] Body temperature 37.33 May 37.33 May [facility] [employer] Heart rate 100 /min 100 /min [employer] Inc Diastolic blood 68 mm[Hg] 68 mm[Hg] [place] [facility] pressure [employer] Systolic blood 118 mm[Hg] 118 mm[Hg] [place] pressure [employer] Oxygen saturation 98 % 98 % [facility] in Arterial blood [employer] by [facility]ulse [facility] [employer] Body mass index 47.49 kg/m2 47.49 kg/m2 [facility] (BMI) [Ratio] [employer] Body weight 132.45 kg 132.45 kg [employer] Body height 167 cm 167 cm [facility] Respiratory rate 12 /min 12 /min [facility] [employer] [facility] Body temperature 36.44 May 36.44 May [facility] Heart rate 88 /min 88 /min [facility] Diastolic blood 70 mm[Hg] 70 mm[Hg] [place] [facility] pressure [employer] [facility] Systolic blood 102 mm[Hg] 102 mm[Hg] [place] [facility] pressure [employer] [facility] [employer] Oxygen saturation 92 % 92 % [facility] in Arterial blood [facility] by [employer] [facility] [employer] Body mass index 45.86 kg/m2 45.86 kg/m2 [facility] (BMI) [Ratio] [employer] Body weight 133.811 kg 133.811 kg [employer] Body height 170.8 cm 170.8 cm [employer] Respiratory rate 12 /min 12 /min [facility] [employer] [facility] Body temperature 36.67 May 36.67 May [place] [facility] Heart rate 88 /min 88 /min [employer] [facility] Diastolic blood 80 mm[Hg] 80 mm[Hg] [place] [facility] pressure [employer] [facility] Systolic blood 120 mm[Hg] 120 mm[Hg] [place] [facility] pressure [employer] [facility] [employer] Oxygen saturation 95 % 95 % [facility] in Arterial blood [facility] by [employer]ulse [employer] [facility] [employer] Respiratory rate 18 /min 18 /min [facility] [employer] [facility] Body temperature 36.44 May 36.44 May [facility] Heart rate 100 /min 100 /min [employer] Diastolic blood 80 mm[Hg] 80 mm[Hg] [place] pressure [employer] [facility] Systolic blood 123 mm[Hg] 123 mm[Hg] [place] [facility] pressure [employer] [facility] [employer] Body mass index 46.99 kg/m2 46.99 kg/m2 [facility] (BMI) [Ratio] [employer] Body weight 136.079 kg 136.079 kg [facility] Body height 170.2 cm 170.2 cm [employer] Oxygen saturation 96 % 96 % [facility] in Arterial blood [facility] Body mass index 45.55 kg/m2 45.55 kg/m2 [facility] (BMI) [Ratio] [employer] Body weight 132.904 kg 132.904 kg [facility] Body height 170.8 cm 170.8 cm [facility] [employer] Respiratory rate 14 /min 14 /min [facility] Body temperature 35.89 May 35.89 May [facility] Heart rate 96 /min 96 /min [employer] Inc Diastolic blood 78 mm[Hg] 78 mm[Hg] [place] pressure [employer] Systolic blood 116 mm[Hg] 116 mm[Hg] [place] [facility] pressure [employer] Oxygen saturation 92 % 92 % [facility] in Arterial blood [facility] [employer] by [employer] [employer] [facility] [employer] Respiratory rate 15 /min 15 /min [facility] [employer] Heart rate 96 /min 96 /min [employer] Inc Diastolic blood 86 mm[Hg] 86 mm[Hg] [facility] pressure [employer] Systolic blood 121 mm[Hg] 121 mm[Hg] [place] [facility] pressure [employer] Body mass index 40.18 kg/m2 40.18 kg/m2 [facility] (BMI) [Ratio] [employer] [facility] Body weight 127.007 kg 127.007 kg [facility] Body height 177.8 cm 177.8 cm [facility] Body temperature 36.72 May 36.72 May [facility] [employer] [facility] Body temperature 36.33 May 36.33 May [facility] [employer] Oxygen saturation 96 % 96 % [facility] in Arterial blood [facility] by [facility]ulse [facility] [facility] [employer] Respiratory rate 21 /min 21 /min [facility] [employer] [facility] Heart rate 85 /min 85 /min [facility] Diastolic blood 88 mm[Hg] 88 mm[Hg] [facility] pressure [facility] Systolic blood 155 mm[Hg] 155 mm[Hg] [place] pressure [employer] Body mass index 40.18 kg/m2 40.18 kg/m2 [facility] (BMI) [Ratio] [employer] Body weight 127.007 kg 127.007 kg [facility] Body height 177.8 cm 177.8 cm [facility] Oxygen saturation 98 % 98 % [facility] in Arterial blood [email or web address] by [employer] [facility] [employer] Body mass index 44.66 kg/m2 44.66 kg/m2 [place] ours (BMI) [Ratio] [facility] Body weight 128.368 kg 128.368 kg [facility] Body height 169.5 cm 169.5 cm [facility] Respiratory rate 12 /min 12 /min [facility] [employer] Body temperature 36.28 May 36.28 May [facility] [employer] Heart rate 68 /min 68 /min [employer] Inc Diastolic blood 80 mm[Hg] 80 mm[Hg] [place] [facility] pressure [employer] Systolic blood 122 mm[Hg] 122 mm[Hg] [place] [facility] pressure [employer] [facility] Patient Treatment Plan of Care Planned Activity Planned Date Details Description Data Source (s) Propranolol Hydrochloride 01/08/2020 [facility] 10 MG Oral Tablet 12:00:00 AM [employer] [facility] Clonazepam 0.5 MG Oral 12/25/2019 [facility] Tablet 12:00:00 AM [employer] [facility] Ibuprofen 200 MG Oral 12/22/2019 [facility] Tablet 12:00:00 AM [employer] olanzapine 5 MG Oral Tablet 12/09/2019 [facility] 09:00:00 AM EDT [employer] [facility] Olmesartan medoxomil 20 MG 12/09/2019 [facility] Oral Tablet 12:00:00 AM EDDiaferon [facility] [employer] olanzapine 5 MG Oral Tablet 12/09/2019 [facility] 12:00:00 AM EDDiaferon [facility] Losartan Potassium 50 MG 12/09/2019 [facility] Oral Tablet 12:00:00 AM EDT [employer] [facility] Clonazepam 0.5 MG Oral 12/08/2019 [facility] Tablet 12:00:00 AM EDDiaferon [facility] Risperidone 2 MG Oral 12/04/2019 [facility] Tablet 12:00:00 AM EDT [facility] [place] Carbonate 300 MG 11/30/2019 [facility] [...] Bela Release Oral Tablet 12:00:00 AM EDT [facility] Bisacodyl 5 MG Delayed 10/31/2019 [facility] Release Oral Tablet 01:50:17 PM EDT [facility] Acetaminophen 325 MG Oral 10/29/2019 [facility] Javier [facility] Tablet 02:44:40 PM EDT [facility] sodium chloride (NS) flush 10/29/2019 [facility] 5-40 mL 11:01:53 AM EDT [facility] 24 HR Bupropion 10/17/2019 [facility] Hydrochloride 150 MG 12:00:00 AM EDT [facility] Extended Release Oral Tablet 24 HR Bupropion 10/17/2019 [facility] Hydrochloride 300 MG 12:00:00 AM EDT [email or web address] [facility] Extended Release Oral Tablet Vraylar 3 mg capsule 09/03/2019 [facility] 12:00:00 AM EDT [facility] Amitriptyline Hydrochloride 08/20/2019 [facility] 150 MG Oral Tablet 12:00:00 AM EST [facility] Carbonate 150 MG 08/16/2019 [facility] Oral Capsule 12:00:00 AM EST [facility] Prednisone 50 MG Oral 08/16/2019 [facility] Tablet 12:00:00 AM EST [employer] Cyclobenzaprine 07/21/2019 [facility] hydrochloride 10 MG Oral 12:00:00 AM EST [employer] [facility] Tablet Acetaminophen 325 MG / 07/21/2019 [facility] Oxycodone Hydrochloride 5 12:00:00 AM EST [employer] [facility] MG Oral Tablet VRAYLAR 6 mg capsule 07/07/2019 [facility] 12:00:00 AM EST [employer] [facility] valacyclovir 1000 MG Oral 07/17/2018 [place] Javier n [facility] Tablet 12:00:00 AM EST [facility] Clonazepam 2 MG Oral Tablet Bon [facility] cariprazine (Vraylar) 6 [facility] HR [facility]ion [facility] 300 [facility] Extended Release Oral Tablet fluoxetine HCl (PROZAC PO) B on [facility] ziprasidone 80 MG Oral [facility]
[2020-04-09 11:51] VITALS: BMI 47.4
--- OUTSIDE RECORDS SUMMARY | 2020-04-12 06:19 | XMS ---
:1970 Author Organization [facility] Care Team Providers Name Role [...] by facilities licensed or operated by the [facility] of Mental Health; or Provided by the [facility] Office for People With Developmental Disabilities. If such information is present, then the following [facility] mandated warning applies: This information has [...] S ecours Bela PM EDT - 01/12/2020 [facility] 10:23:35 AM EDT Patient discharged. Attender: MARIYA CATHERINE 01/01/2020 12:00:00 AM [facility] Attender: MAURICIO 12/30/2019 12:00:00 AM [facility] Attender: MARIYA CATHERINE 12/29/2019 12:00:00 AM [facility] 12/25/2019 04:00:00 PM [facility] 06:48:40 [facility] PM EDT Patient discharged. OL 12/25/2019 [facility] 11:59:00 PM EDT Attender: MARIYA 12/25/2019 12:00:00 AM [facility] Attender: SUSI LONGO 12/25/2019 12:00:00 AM [facility] Attender: MAURICIO 12/24/2019 12:00:00 AM [facility] Attender: MARIYA 12/22/2019 12:00:00 AM [facility] Attender: SUSI LONGO 12/22/2019 12:00:00 AM [facility] Attender: MAURICIO 12/19/2019 12:00:00 AM [facility] Attender: MARIYA 12/18/2019 12:00:00 AM [facility] Attender: GLADIS FUNEZ 12/18/2019 12:00:00 AM [facility] Attender: SUSI LONGO 12/17/2019 12:00:00 AM [facility] Attender: MAURICIO 12/16/2019 12:00:00 AM Bon [facility] Attender: MARIYA 12/15/2019 12:00:00 AM [facility] Attender: XANDER COLBERT 12/13/2019 12:00:00 AM Bon [facility] Outpatient 12/12/2019 12:00:00 PM Francisco Javier n [facility] EDT - 12/12/2019 [facility] 01:20:23 PM EDT Patient discharged. Attender: ROSSI 12/08/2019 05:55:36 [facility] - 01/02/2020 [facility] 12:00:00 AM EDT System In c Inpatient Admitter: RITIKA 12/05/2019 12:00:00 [facility] AM EDT - 12/08/2019 [facility] 03:44:00 PM EDT General Weakness Patient discharged. Outpatient 12/05/2019 12:00:00 AM EDT [facility] Outpatient 12/01/2019 03:45:00 PM EDT - [facility] 12/01/2019 05:01:16 PM EDT Inc Patient discharged. Outpatient 11/14/2019 01:00:00 PM EDT - [facility] 11/18/2019 11:56:43 AM EDT System Inc Patient discharged. Outpatient 11/10/2019 09:00:00 AM EDT - [facility] 11/10/2019 04:44:05 PM EDT System Inc Patient discharged. Inpatient Admitter: RITIKA CANAS 10/29/2019 12:00:00 AM let hargic [facility] EDT - 11/03/2019 [facility] 04:02:00 PM EDT lethargic Patient discharged. Outpatient 09/15/2019 08:22:58 AM EDT [facility] - 09/15/2019 11:59:00 PM Hospital EDT Outpatient 09/10/2019 04:00:00 PM EDT [facility] Outpatient 09/04/2019 03:15:00 PM EDT [facility] Outpatient 08/11/2019 12:05:00 AM EST [facility] Emergency 08/10/2019 12:00:00 AM EST - Chest P ain [facility] 08/11/2019 01:42:00 AM EST Hospital Chest Pain Patient discharged. Outpatient 07/21/2019 04:15:00 PM EST - [facility] 07/22/2019 10:51:43 AM EST System Inc Patient discharged. Immunizations Vaccine Date Status Description Data Source(s) New in 2012. 09/04/2019 completed Influenza Vaccine 09/04/2019 [facility] IIV4 12:00:00 AM EDT (Quad) [facility] Medications Medication Brand Start Product Dose Route Administrative Pharmacy [facility] Indications Reaction Description Data Name [...] Tablet tablet 5 mg EDT dose (after [facility] OLANZapine [facility] (ZyPREXA) modification) S ystem tablet 5 mg on Tue Inc 12/09/19 at 0900, Until Discontinued Medication administered onsite Olmesartan olmesartan 12/09/2019 20 Oral completed h ypertension Take 1 Tab by Bon medoxomil (BENICAR) 12:00:00 AM mg paul th daily [facility] 20 MG Oral 20 mg EDT for 30 days. Bela Tablet tablet Indications: [facility] olmesartan high blood Sys tem (BENICAR) pressure Inc 20 mg tablet hypertension Losartan losartan 12/09/2019 50 Oral active hypertension Take 1 Tab by Bon Potassium (COZAAR) 12:00:00 AM mg mout h daily [facility] 50 MG Oral 50 mg EDT for 30 days. Bela Tablet tablet Indications: [facility] losartan high blood Syste m (COZAAR) 50 [...] doses, Ch arity clonazePAM mg First dose [facility] (KlonoPIN) (after last Sy stem tablet 0.5 modification) Inc mg on 12/07/19 at 1600, Last dose on Denise 12/11/19 at 0900 Medication administered onsite olanzapine OLANZapine 12/07/2019 2.5 Oral aborted 2.5 mg, Oral, Bon 2.5 MG Oral (ZyPREXA) 02:00:00 PM mg D AILY, [facility] Tablet tablet 2.5 EDT dose on Sun Bela OLANZapine mg 12/07/19 at [facility] (ZyPREXA) 1400, Until Sys tem tablet 2.5 Discontinued I nc mg Medication administered onsite [employer] lithium 12/07/2019 300 Oral active 300 mg , Oral, Bon Carbonate carbonate SR 02:00:00 PM mg 2 TIMES DAILY, [facility] 300 MG (LITHOBID) EDT First dose o n Bela Extended tablet 300 Sun 0 at [facility] Release Oral mg 1400, Until System Tablet Discontinued Inc lithium carbonate SR (LITHOBID) tablet 300 mg Medication administered onsite Losartan losartan 12/07/2019 50 Oral active 50 m g, Oral, Bon Potassium 50 (COZAAR) 01:00:00 PM mg D AILY, [facility] MG Oral tablet 50 EDT dose on Sun Bela Tablet mg 12/07/19 at [facility] losartan 1300, Until Syst em (COZAAR) Discontinued Inc tablet 50 mg Medication administered onsite furosemide 59801-063-70 12/07/2019 20 IntraVENous complete d 20 mg, [...] 12/13/19 at 0900 Medication administered onsite furosemide 99433-674-97 12/06/2019 20 IntraVENous complete d edema 20 [...] il mg Discontinued Medication administered onsite 0.9% 8659-1776-17 12/05/2019 100 IntraVENous aborted 100 mL/hr, at [...] [facility] Tablet mg tablet EDT disorder mouth Jgaruti rity risperiDONE (HCC) daily. Healt h (RisperDAL) 2 System mg tablet Inc Shared psychotic disorder (HCC) [employer] lithium 11/30/2019 aborted Bon Carbonate 300 carbonate [...] (DULCOLAX) 5 Inc mg EC tablet cariprazine [id number] 11/01/2019 6 mg Oral active 6 m [...] Ointment ointment EDT Firs t dose on [facility] hydrocortisone 11/01/19 at [facility] (HYTONE) 2.5 % 1800, Unti l System ointment Discontinued Inc Medication administered onsite Docusate docusate 10/31/2019 200 Oral active 200 mg, Oral, Bon Sodium 100 sodium 02:00:00 PM mg DAILY , [facility] MG Oral (COLACE) EDT dose on Sun C harity Capsule capsule 200 10/31/19 at [facility] docusate mg 1400, Until Syst [...] haloperidoL tablet 5 mg EDT ONCE, 1 [facility] (HALDOL) dose, [facility] tablet 5 mg Denise System 10/30/19 [facility] at 2100 Medication administered onsite amitriptyline 10/30/2019 150 mg Oral active 1 50 mg, Oral, Bon (ELAVIL) tablet 09:00:00 PM EV AN BEDTIME, [facility] 150 mg EDT First dose on [facility] ity Denise 10/30/19 at [facility] 2100, Until System I nc Discontinued Medication administered onsite Haloperidol 2 haloperidoL 10/30/2019 2 mg Oral aborted 2 mg, Oral, Bon MG Oral (HALDOL) 08:01:20 PM EVERY 6 [facility] Tablet tablet 2 mg EDT HOURS Ch arity haloperidoL NEEDED, Healt h (HALDOL) Starting Denise Sys tem tablet 2 mg 10/30/19 at [facility] 2000, Until Sun10/31/19 at 2043, Psychosis, Agitation Medication administered onsite [employer] lithium 10/30/2019 300 Oral active 300 mg , Oral, Bon Carbonate carbonate 12:00:00 PM mg 2 T IMES DAILY, [facility] 300 MG Oral tablet 300 EDT First d ose on Bela Tablet mg Denise 10/30/19 at [facility] lithium 1200, Until Syste m carbonate Discontinued In c tablet 300 mg Medication administered onsite Clonazepam 1 clonazePAM 10/30/2019 1 mg Oral active 1 mg, Oral, 2 Bon MG Oral (KlonoPIN) 12:00:00 PM TIME S DAILY, [facility] Tablet tablet 1 mg EDT First dose on Bela clonazePAM Denise 10/30/19 at [facility] (KlonoPIN) 1200, Until Sy stem tablet 1 mg Discontinued [facility] Medication administered onsite 0.9% 4681-2493-99 10/29/2019 100 IntraVENous aborted 100 mL/hr, at Bon sodium 02:55:00 PM mL/h 100 mL/hr, [facility] chloride EDT IntraVENous, Jagruti rity infusion CONTINUOUS, Starting Wed System 10/29/19 at [facility] 1455, Until 11/01/19 at 1446 Medication administered onsite 0.4 ML enoxaparin 10/29/2019 40 SubCUTAneous active 40 mg, Bon Enoxaparin (LOVENOX) 02:55:00 PM mg Gallardo bCUTAneous, [facility] sodium 100 injection 40 EDT EVERY 24 Bela MG/ML mg HOURS, First [facility] Prefilled dose on Sun Sys tem Syringe 10/29/19 at [facility] enoxaparin 1455, Until (LOVENOX) Discontinued injection 40 mg Medication administered onsite Acetaminophen acetaminophen 10/29/2019 650 Oral active 650 mg, Oral, Bon 325 MG Oral (TYLENOL) 02:44:40 PM mg E VERY 4 HOURS [facility] Tablet tablet 650 mg EDT NEEDED , Bela acetaminophen Starting We [facility] (TYLENOL) 10/29/19 at [facility] tablet 650 mg 1444, Until [facility] Discontinued, Mild Pain, Fever Medication administered onsite sodium 19934-596-84 10/29/2019 mL IntraVENous active 5-40 mL, Bon chloride 02:00:00 PM IntraVENo us, [facility] (NS) flush EDT EVERY 8 Charit y 5-40 mL HOURS, First dose on Wed System 10/29/19 at [facility] 1400, Until Discontinued Medication administered onsite sodium 97444-621-13 10/29/2019 mL IntraVENous active 5-40 mL, Bon [...] XL) 150 mg tablet Vraylar 3 mg 67121-929-88 09/03/2019 6 Oral aborted depre ssion Take [...] EST NOW, 1 Bela chewable tablet dose, [facility] 162 mg 08/16/19 System at 2103 Inc Medication administered onsite famotidine 08/16/2019 20 IntraVENous aborted 20 mg, Bon (PF) (PEPCID) 09:02:00 PM mg Intr aVENous, [facility] 20 mg in 0.9% EST EVERY 12 Ch arity sodium HOURS, First Healt h chloride 10 dose on [facility] ystem mL injection 08/16/19 at I nc 2102, Until Discontinued Medication administered onsite methylPREDNISolone [id number] 08/16/2019 125 IntraVENous comple hyun 125 mg, Bon (PF) (Solu-MEDROL) 09:02:00 PM mg IntraVENous, [facility] injection 125 mg EST NOW, 1 d ose, Bela 08/16/19 Health at 2102 System Inc Medication administered onsite 0.9% [id number] 08/16/2019 1000 IntraVENous completed 1,000 mL, at [...] mg tablet for 3 System days. Inc [employer] lithium 08/16/2019 2 Oral active Take 2 [...] Health tablet 162 mg Sun System 08/10/19 [facility] at 2352 Medication administered onsite Cyclobenzaprine [...] back pain due to trauma VRAYLAR 6 06024-707-73 07/07/2019 6 mg Oral aborted Bipolar Take [...] FOR 10 DAYS Herpes zoster cephalicus cariprazine 241400 6 mg Oral aborted Take 6 m g [facility] (Vraylar) 6 mg by mouth C harity capsule daily. [facility] ziprasidone 80 MG ziprasidone 80 mg Oral aborted Take 80 mg [facility] Oral Capsule (GEODON) 80 mg by mouth Bela ziprasidone capsule two (2) He alth (GEODON) 80 mg times Syst em Inc capsule daily (with meals). fluoxetine HCl 60 mg Oral aborted Take 6 0 mg [facility] (PROZAC PO) by mouth Moira ity daily. [facility] Clonazepam 2 MG clonazePAM 1 mg Oral [...] ID Covered Covered Policy Plan Coverage type alliance party ID alliance party's [place] Inform ation relationship to boland [facility] [id number] SP [id number] [facility] [id number] [facility] HEALTH PLAN [id number] [facility] HMO [id number] [employer] HEALTH PLAN Commerical [id number] [facility] [id number] PLAN [facility] [id number] 900 HEALTH PLAN [facility] [id number] PLAN [facility] [id number] HEALTH PLAN POLO [id number] POLO [id number] [employer]IG[employer] PPO [id number] [facility] PPO [id number] [place] 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 [id number] COMPENSATION [facility] HEALTH PLAN [id number] 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 GENERIC Commerical [id number] [facility] PPO [id number] PLAN [facility] [id number] PLAN 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 [id number] COMPENSATION [facility] [id number] [facility] HEALTH PLAN PPO [id number] [facility] Problems, Conditions, and Diagnoses Code Display Name Description Problem Type Effective Data Dates Source(s) T88.7XXA Cii-ktad-ynfnrvg Hth-faen-igcyvoi [id number] 12/05/2019 Francisco Javier n [facility] adverse reaction to adverse reaction to 12:00:0 0 AM Bela medication medication [facility] [employer] T50.905A Adverse drug Adverse drug [id number] 12/05/2019 [place] s reaction, initial reaction, initial 12:00:00 AM [facility] encounter encounter [facility] [employer] G93.40 Encephalopathy acute Encephalopathy acute [id number] 12/04 [facility] 12:00:00 AM Bela [employer] F31.4 Bipolar disorder with Bipolar disorder [id number] 10/29/19 20 [facility] severe depression with severe 12:00:00 AM [facility] depression [employer] E55.9 Vitamin D deficiency Vitamin D deficiency [id number] 09/03 [facility] 12:00:00 AM Bela [employer] F41.8 Mixed anxiety and Mixed anxiety and [id number] 09/04/2019 [facility] depressive disorder depressive disorder 12:00:0 0 AM [facility] E66.01 Morbid obesity Morbid obesity [id number] 07/21/2019 Bon Se cours 12:00:00 AM [facility] [employer] [facility] Z98.84 Status post gastric Status post gastric [id number] 020 [facility] bypass for obesity bypass for obesity 12:00:[address] [facility] F32.9 Depressive disorder Depressive disorder [id number] 020 [facility] 12:00:00 AM [facility] [employer] [facility] F31.9 Bipolar disorder Bipolar disorder [id number] 07/21/2019 Francisco Javier n [facility] 12:00:[address] [facility] F41.9 Anxiety Anxiety [id number] 07/21/2019 [facility] 12:00:00 AM [facility] [employer] [facility] G25.2 Other specified forms Other specified Diagnosis 0 [facility] of tremor forms of tremor 03:17:29 PM [facility] F31.4 Bipolar disorder, Bipolar disorder, Diagnosis 12/25/2019 [facility] - Good current episode current episode 04:40:00 PM [facility] depressed, severe, depressed, severe, EDT Hospital without psychotic without psychotic features features F41.9 Anxiety disorder, Anxiety disorder, Diagnosis 12/25/2019 [facility] unspecified unspecified 04:04:24 PM [facility] R25.1 Tremor, unspecified Tremor, unspecified Diagnosis [facility] 04:04:24 PM [facility] Z98.84 Bariatric surgery Bariatric surgery Diagnosis 12/25/2019 [facility] status status 04:04:24 PM [facility] T88.7XXA Unspecified adverse Unspecified adverse Diagnosis [facility] - Good effect of drug or effect of drug or 11:10:37 AM [employer] medicament, initial medicament, initial EDT Hospital encounter encounter G93.40 Encephalopathy, Encephalopathy, Diagnosis 12/05/2019 [facility] - Good unspecified unspecified 11:10:[address] [facility] Hospital R41.82 Altered mental Altered mental Diagnosis 12/05/2019 [facility] - Good status, unspecified status, unspecified 11:10:3 7 AM [facility] F51.04 Psychophysiologic Psychophysiologic Diagnosis 11/14/2019 [facility] insomnia insomnia 01:22:52 PM [facility] F32.2 Major depressive Major depressive Diagnosis 09/15/2019 [facility] - Good disorder, single disorder, single 08:22:58 AM S amaritan episode, severe episode, severe EDT Hosp ital without psychotic without psychotic features features F41.8 Other specified Other specified Diagnosis 09/04/2019 [facility] anxiety disorders anxiety disorders 03:49:01 PM [facility] F32.2 Major depressive Major depressive Diagnosis 09/04/2019 Francisco Javier n [facility] disorder, single disorder, single 03:49:01 PM C harity episode, severe episode, severe EDT Heal th without psychotic without psychotic System Inc features features Z23 Encounter for Encounter for Diagnosis 09/04/2019 [facility] immunization immunization 03:49:01 PM [facility] T78.40XA Allergy, unspecified, Allergy, Diagnosis 08/16/2019 [facility] initial encounter unspecified, initial 08:39:16 PM [facility] R06.00 Dyspnea, unspecified Dyspnea, unspecified Diagnosis 08/10 [facility] 11:27:27 PM [facility] F31.75 Bipolar disorder, in Bipolar disorder, in Diagnosis 07/21 [facility] partial remission, partial remission, 04:40:28 PM [facility] most recent episode most recent episode [facility] Surgeries/Procedures Procedure Description Date Indications Data Source(s) HC HC Routine 12/25/2019 Bipolar 12/25/2019 Bipolar Francisco Javier n LITHIUM LITHIUM 4:41 PM EDT disorder 04:41:00 PM disorde r [facility] with severe EDT with severe [facility] depression depression He alth (HCC) ([facility]) System Inc Bipolar disorder with severe depression ([facility]) GLUCOSE, POC GLUCOSE, POC Routine 12/08/2019 12/08/2019 Bon 11:35 AM 11:35:00 AM [facility] METABOLIC Routine 12/07/2019 12/07/2019 Bon PANEL, BASIC PANEL, BASIC 4:40 AM EDT 04:40:00 A M [facility] EEG 12-26 HR EEG 12-26 HR Routine 12/06/2019 12/06/2019 Bon W/VIDEO W/VIDEO 10:25 AM 10:25:08 AM [facility] LITHIUM HC LITHIUM Routine 12/06/2019 12/06/2019 Bon 4:25 AM EDT 04:25:00 AM [facility] LACTIC ACID HC LACTIC ACID STAT 12/05/2019 020 Bon 7:20 PM EDT 07:20:00 PM [facility] EDT [facility] HC AMMONIA HC AMMONIA STAT 12/05/2019 12/05/2019 Bon 7:20 PM EDT 07:20:00 PM [facility] BRAIN WO MRI BRAIN WO STAT 12/05/2019 12/05/2019 Bon CONT CONT 4:50 PM EDT 04:50:12 PM [facility] EEG 12-26 HR EEG 12-26 HR STAT 12/05/2019 12/05/2019 Bon W/VIDEO W/VIDEO 3:19 PM EDT 03:19:24 PM [facility] CULTURE, URINE CULTURE, URINE Routine 12/05/2019 020 Bon 2:45 PM EDT 02:45:00 PM [facility] URINALYSIS W/ URINALYSIS W/ STAT 12/05/2019 0 Bon RFLX RFLX 2:45 PM EDT 02:45:00 PM [facility] MICROSCOPIC [facility] BILIRUBIN, BILIRUBIN, Routine 12/05/2019 12/05/2019 Bon CONFIRM CONFIRM 2:45 PM EDT 02:45:00 PM [facility] LACTIC ACID HC LACTIC ACID STAT 12/05/2019 020 Bon 12:40 PM 12:40:00 PM [facility] CULTURE HC CULTURE STAT 12/05/2019 12/05/2019 Bon BLOOD BLOOD 12:38 PM 12:38:00 PM Sec ours EDT EDT [facility] PROTHROMBIN PROTHROMBIN STAT 12/05/2019 12/05/2019 Bon TIME + INR TIME + INR 12:38 PM 12:38:00 PM [facility] EDT [facility] CBC WITH CBC WITH STAT 12/05/2019 12/05/2019 Bon AUTOMATED DIFF AUTOMATED DIFF 12:38 PM 12:38:00 PM [facility] EDT EDT [facility] HC TROPONIN I HC TROPONIN I STAT 12/05/2019 0 Bon QUANT QUANT 12:38 PM 12:38:00 PM Sec ours EDT EDT [facility] METABOLIC METABOLIC STAT 12/05/2019 12/05/2019 Bon PANEL, PANEL, 12:38 PM 12:38:00 PM Sec ours COMPREHENSIVE COMPREHENSIVE EDT EDT [facility] MAGNESIUM MAGNESIUM STAT 12/05/2019 12/05/2019 Bon 12:38 PM 12:38:00 PM Sec ours EDT EDT [facility] HC LITHIUM HC LITHIUM STAT 12/05/2019 12/05/2019 Bon 12:38 PM 12:38:00 PM Sec ours EDT EDT [facility] CT HEAD WO CT HEAD WO STAT 12/05/2019 12/05/2019 Bon CONT CONT 12:30 PM 12:30:54 PM Sec ours EDT EDT [facility] HC CULTURE HC CULTURE STAT 12/05/2019 12/05/2019 Bon BLOOD BLOOD 12:30 PM 12:30:00 PM Sec ours EDT EDT [facility] XR PELV AP XR PELV AP STAT 12/05/2019 12/05/2019 Bon ONLY ONLY 12:14 PM 12:14:58 PM Sec ours EDT EDT [facility] XR CHEST PORT XR CHEST PORT STAT 12/05/2019 0 Bon 12:14 PM 12:14:51 PM Sec ours EDT EDT [facility] RT--OXYGEN RT--OXYGEN STAT 12/05/2019 12/05/2019 Bon CANNULA CANNULA 11:20 AM 11:20:37 AM Sec ours EDT EDT [facility] EEG DIGITAL EEG DIGITAL Routine 12/05/2019 12/05/2019 Bon ANALYSIS ANALYSIS 11:10 AM 11:10:37 AM S [facility]ours EDT EDT [facility] CBC WITH CBC WITH STAT 10/30/2019 10/30/2019 Bon AUTOMATED DIFF AUTOMATED DIFF 6:40 AM EDT 06:40: 00 AM [facility] EDT [facility] METABOLIC METABOLIC STAT 10/30/2019 10/30/2019 Bon PANEL, BASIC PANEL, BASIC 6:40 AM EDT 06:40:00 A M [facility] EDT [facility] URINALYSIS W/ URINALYSIS W/ STAT 10/29/2019 0 Bon RFLX RFLX 6:34 PM EDT 06:34:00 PM [facility] MICROSCOPIC MICROSCOPIC EDT [facility] XR CHEST PORT XR CHEST PORT STAT 10/29/2019 0 Bon 12:09 PM 12:09:04 PM Sec ours EDT EDT [facility] CT HEAD WO CT HEAD WO STAT 10/29/2019 10/29/2019 Bon CONT CONT 11:47 AM 11:47:42 AM Sec ours EDT EDT [facility] HC GLUCOSE HC GLUCOSE Routine 10/29/2019 10/29/2019 Bon POCT POCT 11:26 AM 11:26:00 AM Sec ours EDT EDT [facility] PROTHROMBIN PROTHROMBIN STAT 10/29/2019 10/29/2019 Bon TIME + INR TIME + INR 10:45 AM 10:45:00 AM [facility] EDT EDT [facility] CBC WITH CBC WITH STAT 10/29/2019 10/29/2019 Bon AUTOMATED DIFF AUTOMATED DIFF 10:45 AM 10:45:00 AM [facility] EDT EDT [facility] HC PARTIAL HC PARTIAL STAT 10/29/2019 10/29/2019 Bon THROMBOPLASTIN THROMBOPLASTIN 10:45 AM 10:45:00 AM [facility] / PTT / PTT EDT EDT [facility] METABOLIC METABOLIC STAT 10/29/2019 10/29/2019 Bon PANEL, PANEL, 10:45 AM 10:45:00 AM Sec [facility] COMPREHENSIVE COMPREHENSIVE EDT EDT [facility] [facility] HC LITHIUM HC LITHIUM STAT 10/29/2019 10/29/2019 [facility] 10:45 AM 10:45:00 AM [facility] EDT EDT [facility] XR SPINE LUMB XR SPINE [...] [facility] 9:00 PM EST 02:00:00 AM [facility] I nc CBC WITH AUTOMATED CBC WITH STAT 08/16/2019 0 [facility] DIFF AUTOMATED DIFF 9:00 PM EST 02:00:00 AM [facility] I nc TROPONIN I TROPONIN I STAT 08/16/2019 08/17/2019 [facility] 9:00 PM EST 02:00:00 AM [facility] I nc METABOLIC PANEL, METABOLIC PANEL, STAT 08/16/2019 [facility] COMPREHENSIVE COMPREHENSIVE 9:00 PM EST 02:00:00 AM [facility] I nc MAGNESIUM MAGNESIUM STAT 08/16/2019 08/17/2019 [facility] 9:00 PM EST 02:00:00 AM [facility] [place] [facility] I nc LITHIUM LITHIUM STAT 08/16/2019 08/17/2019 Francisco [facility] 9:00 PM EST 02:00:00 AM [facility] [place] [facility] I nc INFLUENZA A <td><content ID="[id number]">INFLUENZA A & B 07/26 [facility] AG AG (RAPID 05:18:00 [facility] (RAPID TEST) TEST)</content></td><td>STAT</td><td>08/11/2019 EST [facility] 12:18 AM EST</td><td></td><td><paragraph Health styleCode="header">Results for this procedure are System in the <content Inc styleCode="xLink2-[id number]">results section</content>.</paragraph></td> PROTHROMBIN TIME + PROTHROMBIN TIME STAT 08/11/2019 0 08/11/2019 [facility] INR + INR 12:01 AM EST 05:01:[address] [facility] nc D DIMER D DIMER STAT 08/11/2019 08/11/2019 [facility] 12:01 AM EST 05:01:[address] [facility] nc CBC WITH AUTOMATED CBC WITH STAT 08/11/2019 0 [facility] DIFF AUTOMATED DIFF 12:01 AM EST 05:01:[address] [facility] nc PTT PTT STAT 08/11/2019 08/11/2019 [facility] 12:01 AM EST 05:01:[address] [facility] nc TROPONIN I TROPONIN I STAT 08/11/2019 08/11/2019 [facility] 12:01 AM EST 05:01:[address] [facility] nc METABOLIC PANEL, METABOLIC PANEL, STAT 08/11/2019 [facility] COMPREHENSIVE COMPREHENSIVE 12:01 AM EST 05:01:[address] [facility] nc MAGNESIUM MAGNESIUM STAT 08/11/2019 08/11/2019 [facility] 12:01 AM EST 05:01:[address] [facility] nc LITHIUM LITHIUM STAT 08/11/2019 08/11/2019 [facility] 12:01 AM EST 05:01:[address] [facility] nc LACTIC ACID LACTIC ACID STAT 08/11/2019 08/11/2019 [facility] 12:01 AM EST 05:01:[address] [facility] nc BNP BNP STAT 08/11/2019 08/11/2019 [facility] 12:01 AM EST 05:01:[address] [facility] nc RT--OXYGEN CANNULA RT--OXYGEN STAT 08/10/2019 020 [facility] CANNULA 11:51 PM EST 04:51:[address] [facility] nc EKG, 12 LEAD, EKG, 12 LEAD, STAT 08/10/2019 0 [facility] INITIAL INITIAL 10:14 PM EST 03:14:27 AM [facility] I nc Results ID Date Data Source [id number] 04/05/2020 09:40:00 AM EDT [facility] Name Value Range Interpretation Description Data Sup porting Code Source(s) Document(s ) SARS [facility] coronavirus 2 RNA This lab was ordered by [facility] GARY moy [facility] and reported by [facility]. ID Date Data Source [id number] 04/02/2020 09:00:00 AM EDT [facility] Name Value Range Interpretation Description Data Sup porting Code Source(s) Document(s ) SARS [facility] coronavirus 2 RNA This lab was ordered by [facility] GARY moy [facility] and reported by [facility]. ID Date Data Source [id number] 03/29/2020 08:58:00 AM EDT [facility] Name Value Range Interpretation Description Data Sup porting Code Source(s) Document(s ) SARS [facility] coronavirus 2 RNA [facility] and reported by [facility]. ID Date Data Source [id number] 03/25/2020 09:42:00 AM EDT [facility] Name Value Range Interpretation Description Data Sup porting Code Source(s) Document(s ) SARS [facility] coronavirus 2 RNA This lab was ordered by [facility] GRAY moy [facility] and reported by [facility]. ID Date Data Source [id number] 03/22/2020 09:00:00 AM EDT [facility] Name Value Range Interpretation Description Data Sup porting Code Source(s) Document(s ) SARS [facility] coronavirus 2 RNA This lab [facility] [place] [facility] and reported by [facility]. ID Date Data Source [id number] 03/19/2020 10:37:00 AM EDT [facility] Name Value Range Interpretation Description Data Sup porting Code Source(s) Document(s ) SARS [facility] coronavirus 2 RNA This lab was ordered by [facility] and reported by [facility]. ID Date Data Source [id number] 03/15/2020 10:30:00 AM EDT [facility] Name Value Range Interpretation Description Data Sup porting Code Source(s) Document(s ) SARS [facility] coronavirus 2 RNA This lab was ordered by [facility] and reported by [facility]. ID Date Data Source [id number] 03/12/2020 12:00:00 PM EDT [facility] Name Value Range Interpretation Description Data Sup porting Code Source(s) Document(s ) SARS [facility] coronavirus 2 RNA This lab was ordered by [facility] and reported by [facility]. ID Date Data Source [id number] 03/08/2020 10:18:00 AM EDT [facility] Name Value Range Interpretation Description Data Sup porting Code Source(s) Document(s ) SARS [facility] coronavirus 2 RNA This lab was ordered by [facility] and reported by [facility]. ID Date Data Source [id number] 03/04/2020 09:50:00 AM EDT [facility] Name Value Range Interpretation Description Data Sup porting Code Source(s) Document(s ) SARS [facility] coronavirus 2 RNA This lab was ordered by [facility] and reported by [facility]. ID Date Data Source [id number] 03/02/2020 12:15:00 PM EDT [facility] Name Value Range Interpretation Description Data Sup porting Code Source(s) Document(s ) SARS [facility] coronavirus 2 RNA This lab was ordered by [facility] and reported by [facility]. ID Date Data Source [id number] 02/27/2020 09:15:00 AM EDT [facility] Name Value Range Interpretation Description Data Sup porting Code Source(s) Document(s ) SARS [facility] coronavirus 2 RNA This lab was ordered by [facility] and reported by [facility]. ID Date Data Source [id number] 02/23/2020 11:40:00 AM EDT [facility] Name Value Range Interpretation Description Data Sup porting Code Source(s) Document(s ) SARS [facility] coronavirus 2 RNA This lab was ordered by [facility] and reported by [facility]. ID Date Data Source [id number] 02/19/2020 09:56:00 AM EDT [facility] Name Value Range Interpretation Description Data Sup porting Code Source(s) Document(s ) SARS [facility] coronavirus 2 RNA [facility] and reported by [facility]. ID Date Data Source [id number] 02/16/2020 08:40:00 AM EDT [facility] Name Value Range Interpretation Description Data Sup porting Code Source(s) Document(s ) SARS [facility] coronavirus 2 RNA This lab was ordered by [facility] and reported by [facility]. ID Date Data Source [id number] 02/13/2020 10:05:00 AM EDT [facility] Name Value Range Interpretation Description Data Sup porting Code Source(s) Document(s ) SARS [facility] coronavirus 2 RNA This lab was ordered by [facility] and reported by [facility]. ID Date Data Source [id number] 02/09/2020 10:25:00 AM EDT [facility] Name Value Range Interpretation Description Data Sup porting Code Source(s) Document(s ) SARS [facility] coronavirus 2 RNA This lab was ordered by [facility] and reported by [facility]. ID Date Data Source [id number] 01/25/2020 09:20:00 AM EDT [facility] Name Value Range Interpretation Description Data Sup porting Code Source(s) Document(s ) 2019 Novel [facility] Coronavirus RNA Interpretation Unspecified Specimen Qualitative CATA Probe Detection This lab was ordered by [facility]9184 and reported by [facility]. ID Date Data Source [id number] 12/25/2019 05:54:30 PM EDT [facility] Name Value Range Interpretation Description Data Sup porting Code Source(s) Document(s ) Box Elder 0.38 0.6-1.2 Below low normal [facility] [Moles/volu MMOL/L [facility]] in Hospital Serum or Plasma ID Date Data Source [id number] 12/23/2019 01:50:56 PM EDT [facility] Discharge SummaryPatient: Maxwell Hagen e Sex: male DOA: 12/05/2019Date of : 1970 A ge: 49 y.o. LOS: LOS: 3 daysAdmit Date: 12/05/2019Discharge Date: 12/08/2019 Admission Diagnoses: Encephalopathy acute [G93.40];Gfq-uyra-civscuv adversereactio n to medication [T88.7XXA];Axn-tdyz-gocytgw adverse reaction tomedication [T88.7XXA] Discharge Diagnoses: #1 [...] ICD-10-CM: T50.905AICD -9-CM: E947.9 12/05/2019 - Present Qvo-nifb-yiudkia adverse reaction to med ication ICD-10-CM: T88.4CCHRWP-8-NV: 995.20 12/05/2019 - Present Bipolar disorder wit [...] E66.01ICD-9-CM: 278.01 07/19/2018 - Present Spells ICD-10-CM: TUV9011DTF-3-DN: IMO00 01 04/08/2016 - Present Seizure disorder [...] Supporting Document(s ) ID Date Data Source [id number] 12/09/2019 02:14:04 PM EDT [facility] referral made. [facility].Faxed to Moriah at [facility] at FAX [phone]. She reports they ne ed to get authfor walker. Have instucted pt to buy own walker IF not authorized.He i s agreeable to buying walker if needs to.Care Management InterventionsPCP Verified by CM: YesTransition of Care Consult (CM Consult): Home HealthBon [employer] Home Car e: YesCurrent Support Network: Own Home, Lives with SpouseThe Patient and/or Prachi ent Collection Specialist was Provided with a Choice of Providerand Agrees with the Discharge Plan?: YesFreedom of Choice List was Provided with Basic Dialogue that Suppor ts thePatient's Individualized Plan of Care/Goals, Treatment Preferences and Sh aresthe Quality Data Associated with the Providers?: YesVeteran Resource Informat ion Provided?: RefusedDischarge LocationDischarge Placement: Home with [facility] [place](ACCEPTED BY [facility])Pt is discharged , picking him up. reports she has phone number tomake pt a follow up psych appt. [facility] to visit. will buy walker if not able to get thru [facility].Post dc note 12/08[facility] reports [facility]% copay - they lef t message on 's phone.I also, left a message with my call back number for any questions. hadreported to me she planned on buying a walker and would ret urn if insurance paidfor one. Name Value Range Interpretation Code Description Data [facility] Supporting Document(s ) ID Date Data Source [id number] 12/08/2019 03:06:17 PM EDT [facility] I have reviewed discharge instructions w ith the patient. The patient verbalizedunderstanding.Discussed with t he patient and all questioned fully answered. He will call me ifany problems arise.If you experience chest pain call 911. [address] yourself.Patient armband removed a nd shredded. IV removed and discharged home stable. Name Value Range Interpretation Code Description Data [facility] Supporting Document(s ) ID Date Data Source [id number] 12/08/2019 03:02:56 PM EDT [facility] Per your note, pt with acute encephalopa thy and toxic Serum Box Elder level.Please specify the type of encephalopathy in yo ur progress notes: Toxic encephalopathy due to lithium Metabolic encephalopathy due to Other cause (please specify) Clinically unable to determine UnknownPLEASE DOCUM ENT ANY ADDITIONAL DIAGNOSES AND/OR SPECIFICITY IN THE PROGRESSNOTES AND/OR DISCHARGE SUMMARY. Name Value Range Interpretation Code Description Data Melani rce(s) Supporting Document(s ) ID Date Data Source [id number] 12/08/2019 02:40:45 PM EDT [facility] Problem: SuicideGoal: *STG: Remains safe in [...] Ru Mosher: Progressing Towards GoalGoal: *LTG: Identifies [facility] Event 38 [employer]12/08/2019 1440 by Mosher, KatyOutcome: Resolved/Met12/08/2019 1439 by [...] Fall R isk and appropriate interventions in [facility].12/08/2019 1440 by Divya Mosherome: Resolved/MetNote: [...] Document Harsh Scale and appropriate interventions in [facility] t.12/08/2019 1440 by Ru Mosher: Resolved/MetNote: Pressure [...] Supporting Document(s ) ID Date Data Source [id number] 12/08/2019 02:40:17 PM EDT [facility] Problem: SuicideGoal: *STG: Remains safe in [...] Document Harsh Scale and [facility].Outcome: P rogressing Towards GoalNote: Pressure Injury Interventions:Sensory [...] Supporting Document(s ) ID Date Data Source [id number] 12/08/2019 01:18:54 PM EDT [facility] General Daily Progress NoteAdmit Date: Hospital day: .tdSubjective:Psycgm Neuro,and PT assessments reviewed. Patie nt qualifies for discharge. Wifecalled, will bring in clothes. New medical regimen di scussed with the . Willneed Box Elder level later this week.Current Facility-Adminis tered MedicationsMedication [...] past 8 hrs: BP Temp Pulse Resp VpU30812/07 0816 - - - - 96 %12/08/19 [...] initial encounter (12/05/2019)Active Problems: Encephalopathy acute (12/05/2019) Ktx-ltcw-qlenloa adve rse reaction to medication (12/05/2019)Plan: day of discharge. Name Value Range Interpretation Code Description Data Melani rce(s) Supporting Document(s ) ID Date Data Source [id number] 12/08/2019 12:09:30 PM EDT [facility] Problem: Mobility Impaired (Adult and Pe [...] y.o. male)Date: 12/08/2019Primary Diagnosis: E ncephalopathy acute [G93.40]Xed-grrn-dknkmqa adverse reaction to medication [T88.7XXA ]Ztq-zfrr-lkgsaxa adverse reaction to medication [T88.7XXA]Precautions: Fall ASSESSMENT [...] ty or mortality cardiac cath at [facility] approx 6-8 months ago Other [...] NoneCritical Beh avior:Neurologic State: AlertOrientation Level: Oriented U1Meffxbbfg: Appropriate for age attention/concentration;Follows commandsSafety/Judgement: Decreased awar [...] Supporting Document(s ) ID Date Data Source [id number] 12/08/2019 11:48:26 AM EDT [facility] Name Value Range Interpretation Description Data Sup porting Code Source(s) Document(s ) Glucose 132 MG/DL 65-110 Above high normal [facility] [Mass/volume] [employer] in Blood by [facility] Automated test strip ID Date Data Source [id number] 12/08/2019 10:35:45 AM EDT [facility] S/O Patient has shown improvement. He re ports that medications are helping him.He denies any side effectsHe denies any cecilia cidal thoughtsHe reports that he sees a psychiatrist DR. [facility] continue on lithium 300 mg bid Box Elder level in two days Will increase Zyprexa 5 mg Will follow up as requested Name Value Range Interpretation Code Description Data Melani rce(s) Supporting Document(s ) ID Date Data Source [id number] 12/08/2019 07:28:52 AM EDT [facility] Bedside and Verbal shift change report cristi Hurley RN (oncoming nurse) Annalise DE LEON RN (offgoing nurse). Repor t included the followinginformation SBAR, Kardex, MAR and Recent Results. Name Value Range Interpretation Code Description Data Melani rce(s) Supporting Document(s ) ID Date Data Source [id number] 12/07/2019 08:26:02 PM EDT [facility] Problem: Falls - Risk ofGoal: *Absence [...] Name Value Range Interpretation Code Description Data [facility] rce(s) Supporting Document(s ) ID Date Data Source [id number] 12/07/2019 07:05:28 PM EDT [facility] Verbal shift change report given to Chandrakant Cox RN (oncoming nurse) by Steven Villalobos RN (offgoing nurse). Report inc luded the following information SBAR, Kardex,Intake/Output, MAR, Recent Result s and Cardiac Rhythm on telemetry. Name Value Range Interpretation Code Description Data Melani rce(s) Supporting Document(s ) ID Date Data Source [id number] 12/07/2019 01:30:56 PM EDT [facility] Trent Jacob MD[address] [place] [address] [phone].[employer] Progress NotePatient: Maxwell Bray Sex: male DOA: [...] (LOVENOX) injection 40 mg 40 mg SubCUTAneous L53YLsokujysl:Visit VitalsBP 153/85 (BP 1 Location: Left arm, BP Prachi ent Position: At rest)Pulse 96Temp 98.7 F (37.1 C)Resp 20Ht 5' 5.75" (1.67 m)Wt 3 01 lb 1.6 oz (136.6 kg)SpO2 96%BMI 48.97 kg/m Body mass index is 48.97 kg/m .Patient V itals for the past 24 hrs: Temp Pulse Resp BP LoK291 1249 - 96 - 153/85 - 0 [...] time notated as "note time" in [facility]. (It is not time stamped separately in [...] shoulder M79.2 Seizure disorder (HCC) G40.909 Spells [id number] Severe obesity (HCC) E66.01 Depression F32.9 Anxiety F41.9 Bipolar disorder (HCC) F31.9 Depressive disorder F32.9 Status post g astric bypass for obesity Z98.84 Morbid obesity (HCC) E66.01 Mixed anxiety and depressive disorder F41.8 Vitamin D deficiency E55.9 Bipolar disorder with severe depression (HCC) F31.4 Encephalopathy acute G93.40 Adverse drug reaction, ini tial encounter T50.905A Mow-kcqd-bvzxnbf adverse reaction to medication T88.7XXA 49 year [...] Supporting Document(s ) ID Date Data Source [id number] 12/07/2019 01:02:36 PM EDT [facility] - [facility] Pt seen and discussed with Dr Canas .Pt is tearful flat and denies any suicidal thoughts , has been depressed withlithiu m on hold , No Vraylar and he is unable to get his ECT at [facility] And no w will be with [facility] with Dr Womack his lithium level is un therape utic range I will start on lithium , add 2.5mg of zyprexa and lower his klonopin And increase his elavil to 200 mg HSWill get pt followed up with Psychiatry Name Value Range Interpretation Code Description Data Melani rce(s) Supporting Document(s ) ID Date Data Source [id number] 12/07/2019 12:52:32 PM EDT [facility] Problem: Fluid Volume - Risk of, Imbalan cedGoal: *Balanced intake and outputOutcome: Progressing Towards GoalProblem: Patient Education: Go to Patient Education ActivityGoal: Patient/Family EducationOu tcome: Progressing Towards Goal Name Value Range Interpretation Code Description Data Melani rce(s) Supporting Document(s ) ID Date Data Source [id number] 12/07/2019 12:45:20 PM EDT [facility] Problem: Falls - Risk ofGoal: *Absence [...] Supporting Document(s ) ID Date Data Source [id number] 12/07/2019 12:24:47 PM EDT [facility] General Daily Progress NoteAdmit Date: Hospital [...] injection 40 mg 40 mg SubCUTA neous F11BFppujbspl:Patient Vitals for the past 8 hrs: BP Temp Pulse Resp VzR11512/06 0956 147/86 98.7 F (37.1 C) 95 [...] initial encounter (12/05/2019)Active Problems: Encephalopathy acute (12/05/2019) Soq-wmee-siaidmo adve rse reaction to medication (12/05/2019)Plan:To increase activity, diet,klonopin. Start Losartan Name Value Range Interpretation Code Description Data Melani rce(s) Supporting Document(s ) ID Date Data Source [id number] 12/07/2019 10:13:28 AM EDT [facility] LTM EEG pleating supervisor DC'd per Dr. Jacob. Name Value Range Interpretation Code Description Data Melani rce(s) Supporting Document(s ) ID Date Data Source [id number] 12/07/2019 10:08:27 AM EDT [place] [address] [address] [place]resp[place] BUTCH [id number]: MAXWELL BRAYMRN: [id number]: [id number]#: [id number] DATE: 12/05/2019LONG TERM MONITORING VIDEO COLLAR SEPARATOR: Riky Rodriguez HISTORY: The patient is a [...] montages. Digital analysis was performed employing an [employer]Flow neuralnetwork program with parameterization and statistical analysi [...] seen, that attenuates with eye opening.There was kdui-sf-bejrcbem gener alized background slowing.There was no clear focal slowing.ACTIVATION TECHNIQUES: Ph otic stimulation and hyperventilation were notperformed.SLEEP: During drowsiness, there is mild attenuation and slowing of thebackground rhythm. There was normal sleep seen including symmetric vertexwaves, sleep spindles, and K-complexes.OTHER AC TIVITY: There were no clear epileptiform discharges and no seizures orclinical ev ents recorded.DIGITAL ANALYSIS: Variable spectral pattern without significant lef l-oe-ycmzfdtrmkgzhftn. Spikes were artifact in nature.DECEMBER 06 DAILY [...] the awake and asleep states due to prka-vr-evzfecxo diffuse cerebraldysfunc tion that improves to mild over the course of the recording. TRENT JACOB, MDDD: #12/06/2019 10:21:35/SS /[id number]/[id number] #: [id number] / [id number] Name Value Range Interpretation Code Description Data Melani rce(s) Supporting Document(s ) ID Date Data Source [id number] 12/07/2019 07:45:20 AM EDT [facility] Bedside and Verbal shift change report cristi Dove RN (3Loria) (oncomingnurse) by Vy Green RN (offgoing nurse). Report included the following information SBCIERRA, Nano Benites Recent Results. Name Value Range Interpretation Code Description Data Melani rce(s) Supporting Document(s ) ID Date Data Source [id number] 12/07/2019 07:22:41 AM EDT [facility] All leads and head wrapping intact. Day 2 LTM complete. Awaiting instructions tocontinue for day 3 or DC. Name Value Range Interpretation Code Description Data Melani rce(s) Supporting Document(s ) ID Date Data Source [id number] 12/07/2019 05:19:11 AM EDT [facility] Name Value Range Interpretation Description Data [...] non- Americans (GFRNA), and normalized to 1.7 4s3lkqa surface area. The physician must decide which value applies tothe patient . The MDRD study equation should only be used inindividuals age 18 or older. It has no t been validated for thefollowing: women, patients with serious comorbid co nditions,or on certain medications, or persons with extremes of body size,muscl e mass, or nutritional status. Calcium [Mass/volume] in Serum 9.1 mg/dL 8.5-10.1 [facility] ID Date Data Source [id number] 12/06/2019 08:12:24 PM EDT [facility] Bedside and Verbal shift change report cristi Loyd RN (oncoming nurse) Estephania Wakefield RN (offgoing nurse). Report included the followinginformation SBAR, Kardex, MAR, Recent Results, and Med Rec Status. Name Value Range Interpretation Code Description Data Melani rce(s) Supporting Document(s ) ID Date Data Source [id number] 12/06/2019 04:57:12 PM EDT [facility] General Daily Progress NoteAdmit Date: Hospital [...] (LOVENOX) injection 40 mg 40 mg SubCUTAneous E59WGeksdvbbj:Patient Vi tals for the past 8 hrs: BP Temp Pulse Resp OoK09112/06/19 1547 (!) 164/100 99.6 F (3 7.6 [...] Time: 12/06/19 4:25 AMResult Value Ref Range Box Elder level 1.09 0.6 - 1.2 MMOL/L Xr [...] initial encounter (12/05/2019)Active Problems: Encephalopathy acute (12/05/2019) Lbv-vojc-nxawccn adve rse reaction to medication (12/05/2019)Plan:To reduce iv fluids, repeat lasix Name Value Range Interpretation Code Description Data Melani rce(s) Supporting Document(s ) ID Date Data Source [id number] 12/06/2019 04:14:48 PM EDT [facility] - [facility] Psychiatry Consult NoteSubjective:Patien t: Maxwell Bray [...] of morbidity or mortality cardiac cath at [facility] approx 6-8 months ago Other unknown and unspecified cause of morbidity or mortal ity concussions Other unknown and unspecified cause of morbidity or mortal ity "periodic disorientation" Other unknown and unspecified cause of morbidity or mo rtality anxiety Psychiatric disorder anxiety, depressionPsychiatric History: Patient reported he was receiving care in outpatient from [facility] psychiatrist bu t did not discuss details.Substance Use History:Social HistorySubstance and Sexu al ActivityAlcohol Use No Frequency: Never Drinks per session: 1 or 2 Binge freque ncy: NeverSocial HistorySubstance and Sexual ActivityDrug Use NoObjective:Vitals/Phys ical Assessment:Patient Vitals for the past 8 hrs: BP Temp Pulse Resp [id number]/06/19 081 3 (!) 153/94 100.4 F (38 [...] encounter (12/05/2019)A ctive Problems: Encephalopathy acute (12/05/2019) Qdf-fmmj-usryjgw adverse re action to medication (12/05/2019)Plan:No current [...] Supporting Document(s ) ID Date Data Source [id number] 12/06/2019 01:18:16 PM EDT [facility] Trent Jacob MD[address], [address] [place] [address] [phone] Progress NotePatient: Maxwell Bray Sex: male DOA: 12/05/2019Date of : 1970 Age: 49 y.o. LOS: LOS: 1 daySubjective:Awake, alert, tremulous, no current complaintsEEG w/ mild to mod gen slowREVIEW OF SYSTEMS: NO CP, SOB, N,V,D, F,CCurrent Facility-Administered MedicationsMedication Dose Route Frequen cy 0.9% sodium chloride infusion 125 mL/hr IntraVENous CONTINUOUS enoxaparin (LOVE NOX) injection 40 mg 40 mg SubCUTAneous U23CJqfsjdpry:Visit VitalsBP (!) 153/94 (BP 1 Location: Left arm, BP Patient Position: At rest)Pulse 100Temp 100.4 F (38 C)Resp 18Ht 5' 5.75" (1.67 m)Wt 300 lb (136.1 kg)SpO2 96%BMI 48.79 kg/m Body mass index is 48.79 kg/m .Patient Vitals for the past 24 hrs: Temp Pulse Resp BP BmA56212/06/19 0813 100.4 F (38 C) 100 18 [...] past 24 hours were [facility] and at the time [...] Time: 12/06/19 4:25 AMResult Value Ref Range [place] level 1.09 0.6 - 1.2 MMOL/LCT Results [...] the brain.MRI Results (most recent):[facility] encounter on 12/05/19MRI BRAIN WO CONT [...] pain of shoulder M79.2 Seizure disorder ([facility]) G40.909 Spells [id number] Severe ob esity ([facility]) E66.01 Depression F32.9 Anxiety F41.9 Bipolar disorder (HCC) F31.9 Dep ressive disorder F32.9 Status post gastric bypass for obesity Z98.84 Morbid obesit y ([facility]) E66.01 Mixed anxiety and depressive disorder F41.8 Vitamin D deficiency E55 .9 Bipolar disorder with severe depression ([facility]) F31.4 Encephalopathy acute G93.40 Adverse drug reaction, initial encounter T50.905A Klz-cbgl-fstvuzc adverse react ion to medication T88.7XXA49 year [...] Name Value Range Interpretation Code Description Data [facility] Supporting Document(s ) ID Date Data Source [id number] 12/06/2019 11:43:34 AM EDT [facility] LTM study day 1 complete. All leads and head wrapping intact. Day 2 LTM studycommenced and LIVE via WIFI on [facility]. 06/28 Name Value Range Interpretation Code Description Data [facility](s) Supporting Document(s ) ID Date Data Source [id number] 12/06/2019 10:48:32 AM EDT [facility] Care Management InterventionsPCP Verifie d by CM: YesCurrent Support Network: Own Home, Lives with SpouseThe Patient and/o r Patient Collection Specialist was Provided with a Choice of Providerand Agrees with the Betty rose Plan?: YesFreedom of Choice List was Provided with Basic Dialogue that Suppor ts thePatient's Individualized Plan of Care/Goals, Treatment Preferences and Sh aresthe Quality Data Associated with the Providers?: YesVeteran Resource Informat ion Provided?: RefusedDischarge LocationDischarge Placement: HomeCASE YUE LORENZ PSYCHOSOCIAL ASSESSMENTMaxwell Mendieta [place] Admission Marlon e: 12/05/2019MRN: [id number] of : 1970Current date: 12/06/2019 DISCHARGE PLAN: Patient is a 49 year old male admitted to [facility]. CM attempted toreach hi m via [...] services. Open for SNF. Family would like [facility]. CM CCLINKD. CM willfollow.Patient Information:Patients [...] NoPCP: Ritika Canas MDAdmitting Provider: Ritika lobo MDCHESAPEAKE REGION[facility] IN[facility]EC[facility] SAMPLE CLERK: N/APayor: P ayor: [facility] / Plan: [facility] /Product Type: HMO /Secondary Payor : @SECINSGROUPNAME@Encephalopathy acute [G93.40]Gtr-fsph-fuaolbh adverse reactio n to medication [T88.7XXA]Jic-zybg-azvauxh adverse reaction to medication [T88.7XXA ]Patient Active Problem ListDiagnosis Code H/O gastric bypass Z98.84 Insomnia G47. 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 Seizure disorder (HCC) G40.909 Spells I [id number] Severe obesity (HCC) E66.01 Depression F32.9 Anxiety F41.9 Bipolar disorder (HCC) F31.9 Depressive disorder F32.9 Status post gastric bypass for ob esity Z98.84 Morbid obesity (HCC) E66.01 Mixed anxiety and depressive disorder F4 1.8 Vitamin D deficiency E55.9 Bipolar disorder with severe depression (HCC) F3 1.4 Encephalopathy acute G93.40 Adverse drug reaction, initial encounter T50.905 A Fbm-epad-hrmhnzf adverse reaction to medication T88.7XXASocial HistorySubstan ce [...] Supporting Document(s ) ID Date Data Source [id number] 12/06/2019 07:40:06 AM EDT [facility] 1938: Patient found in bed resting [...] Supporting Document(s ) ID Date Data Source [id number] 12/06/2019 05:07:27 AM EDT [facility] Name Value Range Interpretation Description Data Sup porting Code Source(s) Document(s ) [place] 1.09 0.6-1.2 [facility] - Good [Moles/volu MMOL/L Pentecostalism me] in Hospital Serum or Plasma ID Date Data Source [id number] 12/05/2019 07:59:09 PM EDT [facility] Name Value Range Interpretation Description Data Sup porting Code Source(s) Document(s ) Ammonia 16 UMOL/L 11-32 [facility] - Good [Moles/volum Pentecostalism e] in Plasma Hospital ID Date Data Source [id number] 12/05/2019 07:56:38 PM EDT [facility] Name Value Range Interpretation Description Data Sup porting Code Source(s) Document(s ) Lactate 0.9 0.4-2.0 [facility] - Good [Moles/volu MMOL/L Pentecostalism me] in Hospital Serum or Plasma ID Date Data Source [id number] 12/05/2019 06:42:57 PM EDT [facility] LTM EEG pleating 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 Day 1 LTM comm enced and LIVE via WIFI on [facility] 06/28 Name Value Range Interpretation Code Description Data Melani rce(s) Supporting Document(s ) ID Date Data Source [id number] 12/05/2019 06:07:34 PM EDT [facility] [id number] [employer] [facility] 4T OR THOPED[facility] [address] [facility] [address] [phone] Maxwell Bray (Male) [id number] I 3 ED Dispo:ADMIT Chief Complaint: Fall, Fatigue Diagnosis: Altered mental status, unspecified altered mental status type [] Adverse drug reaction, initial encounter [] Encephalopathy acute [] Fjv-ppli-pvauvvj adverse effect of medication, subsequent encounter [] Bipolar disorder with severe depression (HCC) [] H/O gastric bypass [] Curre nt Providers: Attending: Patsy Manzo; Kristy Otero; Cristi Canas Consulting Provider: Jose Centeno; Cristi Canas; Javier Khan; rCisti Frazier Primary Nurse: BAILEY GambleN: [phone] 5 [id number] [employer] [phone] - [employer] [employer] MrnMRN: [id number] [employer] [id number] - [employer] Age SexDOB 1970 AGE 49 SEX Male Primary Care Provider: Ritika Canas MD Phone: Allergies: (No Known Allergies)Date Reviewed: 12/05/2019Reviewed by: Ritika Canas MD - Review CompleteED Provider Notes: All notesHNO ID: [id number]: Julio Manzo MDService: EMERGENCYAuthor Type: Physici anFiled: [...] morbidity or mortality cardiac cath at [facility] approx 6-8 months ag o Other [...] Calculation (Bez et) 515 ms Calculated P [place] 40 degrees Calculated R [place] 41 degrees Calculated T [place] 147 degrees Diagnosis Sinus tachycardiaProbable left atrial [...] Time: 12/05/19 12:38 PMResult Value Ref Range [place] level 1 .53 (HH) 0.6 - 1.2 MMOL/LLACTIC ACID Collection Time: 12/05/19 12:40 PMResult Value Ref Range Lactic acid 1.1 0.4 - 2.0 MMOL/LEKG:Sinus tachycardia at 100 BPM, normal axis, nothing acute.Interpreted by Julio Manzo MD11:20 AM monitor worker reading shows sinus tachycardia at 100 BPM.Interpreted [...] mental status, unspecified altered mental status type R41.45407.97Patient c ondition at time of disposition: StableI [...] thediagnostic studies, unless otherwise noted.+ED Orde rs [id number] DOCTOR NATUROPATHIC - ED ONLY [#[id number]] Priority: STAT Class: Hospital Performe d Standing Order Information Remaining Occurrences:0/1 Interval:Continuous Last release d:12/05/2019 Released orders: SunDec 05, 2019 11:20 AM by: JULIO MANZO Type: -> Bedside N [id number] PULSE OXIMETRY CONTINUOUS [#[id number]] Priority: STAT Class: Hospital Performe d Standing Order Information Remaining Occurrences:0/1 Interval:CONTINUOUS Last release d:12/05/2019 Released orders: SunDec 05, 2019 11:20 AM by: JULIO MANZO [id number] PULSE OXIMETRY SPOT CHECK [#[id number]] Priority: STAT Class: Hospital Performed Standing Order Inf ormation Remaining Occurrences:0/1 Interval:ONE TIME Last released:12/05/2019 Release d orders: SunDec 05, 2019 11:20 AM by: JULIO MANZO [id number] OBTAIN OLD EKG [ #[id number]] Priority: Routine Class: Hospital Performed Standing Order Information Remainin g Occurrences:0/1 Interval:ONE TIME Last released:12/05/2019 Released orders : SunDec 05, 2019 11:20 AM by: JULIO MANZO [id number] DOCTOR NATUROPATHIC - ED ONLY [# [id number]] Priority: STAT Class: Hospital Performed Type: -> Bedside Released on: 12/05/2019 11:20 AM [id number] PULSE OXIMETRY CONTINUOUS [#[id number]] Priority: STAT Class: Hospital Performe d Released on: 12/05/2019 11:20 AM [id number] PULSE OXIMETRY SPOT CHECK [#[id number]] Priori ty: STAT Class: Hospital Performed Released on: 12/05/2019 11:20 AM [id number] OBTAIN OLD EKG [#[id number]] Priority: STAT Class: Hospital Performed Released on: 12/05/2019 11:20 AM [id number] VITAL SIGNS PER UNIT ROUTINE [#[id number]] Priority: STAT Class: Hospital Performed Stand ing Order Information Remaining Occurrences:0/1 Interval:CONTINUOUS Last released :12/05/2019 Released orders: SunDec 05, 2019 2:41 PM by: RITIKA CANAS Comment:More frequent ly if Indicated. [id number] BEDREST, COMPLETE [#[id number]] Priority: STAT Class: H ospital Performed Standing Order Information Remaining Occurrences:0/1 Interval:CONTIN UOUS Last released:12/05/2019 Released orders: SunDec 05, 2019 2:41 PM by: RITIKA CANAS [id number] NOTIFY PROVIDER: VITAL SIGNS CHANGES [#[id number]] Priority: STAT Class: Hospital Performe d Standing [...] Less than 120 ml in 4 hours [id number] APPLY/MAINTAIN SEQUENTIAL COMPRESSIO* [# [id number]] Priority: STAT Class: Hospital Performed Standing Order Information Remaining Occurre nces:0/1 Interval:CONTINUOUS Last released:12/05/2019 Released orders: SunDec 05, 2019 2:41 PM by: RITIKA CANAS [id number] VITAL SIGNS PER UNIT ROUTINE [#[id number]] Priorit y: STAT Class: Hospital Performed Comment:More frequently if Indicated. Released on: 12/05/2019 2 :41 PM [id number] BEDREST, COMPLETE [#[id number]] Priority: STAT Class: Hospital Performe d Released on: 12/05/2019 2:41 PM [id number] NOTIFY PROVIDER: VITAL SIGNS CHANGES [#[id number]] Priority: STAT Class: Hospital Performed Temp -> [...] carmen rs Released on: 12/05/2019 2:41 PM [id number] APPLY/MAINTAIN SEQUENTIAL COMPRESSIO* [#[id number]] P riority: STAT Class: Hospital Performed Released on: 12/05/2019 2:41 PM [id number] RT--OXYGEN CANNULA [#[id number]] Priority: STAT Class: Hospital Performed Standing Order Information Remaining Occurrences:0/1 Interval:CONTINUOUS Last released:12/05/2019 Released o rders: SunDec 05, 2019 11:20 AM by: JULIO MANZO LPM -> 2 Indications for O2? -> CHEST PAIN [id number] RT--OXYGEN CANNULA [#[id number]] Priority: STAT Class: Hospital Performe d LPM -> 2 Indications for O2? -> CHEST PAIN Released on: 12/05/2019 11:20 AM [id number] DIET NPO [#[id number]] Canceled Priority: STAT Class: Hospital Performed Cancele d by RITIKA CANAS on SunDec 05, 2019 2:41 PM Reason: None Comment: Standing Order Information Remaining Occurrences:0/1 Interval:DIET EFFECTIVE NOW Last released:12/05/2019 Release d orders: SunDec 05, 2019 11:20 AM by: JULIO MANZO NPO options: -> With Meds [id number] DIET NPO [#[id number]] Canceled Priority: STAT Class: Hospital Performed Cancele d by RITIKA CANAS on SunDec 05, 2019 2:41 PM Reason: None Comment: NPO options: -> With Meds Released on: 12/05/2019 11:20 AM [id number] DIET NPO [#[id number]] Priority: S TAT Class: Hospital Performed Standing Order Information Remaining Occurrences:0/1 Inter haile:DIET EFFECTIVE NOW Last released:12/05/2019 Released orders: SunDec 05, 2019 2:41 PM by: RITIKA CANAS [id number] DIET NPO [#[id number]] Priority: STAT Class: H ospital Performed Released on: 12/05/2019 2:41 PM [id number] SALINE LOCK IV [#[id number]] Priority: STAT Class: Hospital Performed Standing Order Information Remaining Occurrences:0 /1 Interval:ONE TIME Last released:12/05/2019 Released orders: SunDec 05, 2019 11:20 AM by: JULIO MANZO IVT11 SALINE LOCK IV [#[id number]] Priority: STAT Cl ass: Hospital Performed Released on: 12/05/2019 11:20 AM [id number] METABOLIC PANEL, COMPREHENSIVE [# [id number]] Priority: STAT Class: ER Collect Standing Order Information Remaining Occurrences:0 /1 Interval:ONE TIME Last released:12/05/2019 Released orders: SunDec 05, 2019 11:20 AM by: JULIO MANZO [id number] CBC WITH AUTOMATED DIFF [#[id number]] Priority: STAT Cl ass: ER Collect Standing Order Information Remaining Occurrences:0/1 Interval:ONE TI ME Last released:12/05/2019 Released orders: SunDec 05, 2019 11:20 AM by: JULIO MANZO [id number] TROPONIN I [#[id number]] Priority: STAT Class: ER Collect Sta nding Order Information Remaining Occurrences:0/1 Interval:ONE TIME Last released:0 12/05/2019 Released orders: SunDec 05, 2019 11:20 AM by: JULIO MANZO [id number] MAGNESIUM [#[id number]] Priority: STAT Class: ER Collect Standing Order Information Remaining Occurrences:0/1 Interval:ONE TIME Last released:12/05/2019 Released orders : SunDec 05, 2019 11:20 AM by: JULIO MANZO [id number] LACTIC ACID [#[id number]] Priority: STAT Class: ER Collect Standing Order Information Remaining Occurrences:0/2 Interval:NOW THEN EVERY 4 HOURS Last released:12/05/2019 Released orders: SunDec 05, 2019 12:06 PM by: JULIO MANZO SunDec 05, 2019 11:20 AM by: JULIO MANZO [id number] PROTHROMBIN TIME + INR [#[id number]] Priority: STAT Class: ER Collect Standing Order Information Remain ing Occurrences:0/1 Interval:ONE TIME Last released:12/05/2019 Released orders : SunDec 05, 2019 11:20 AM by: JULIO MANZO [id number] URINALYSIS W/ RFLX MICROSCOPIC [# [id number]] Priority: STAT Class: ER Collect Standing Order Information Remaining Occurrences:0 /1 Interval:ONE TIME Last released:12/05/2019 Released orders: SunDec 05, 2019 11:20 AM by: JULIO MANZO [id number] METABOLIC PANEL, COMPREHENSIVE [#[id number]] Priority: STAT Cl ass: ER Collect Specimen Source: Plasma Specimen Collected: 12/05/2019 12:38 PM Resulting Agency: [facility] Test ID: MPL Released on: 12/05/2019 11:20 AM [id number] CBC WITH A UTOMATED DIFF [#[id number]] Priority: STAT Class: ER Collect Specimen Source: Whole Blood S pecimen Collected: 12/05/2019 12:38 PM Resulting Agency: [facility] Test ID: CBCXA Released on: 12/05/2019 11:20 AM [id number] TROPONIN I [#[id number]] Prior ity: STAT Class: ER Collect Specimen Source: Plasma Specimen Collected: 12/05/2019 12:38 PM Resultin g Agency: [facility] Test ID: TROIP Released on: 12/05/2019 11:20 AM [id number] 2 MAGNESIUM [#[id number]] Priority: STAT Class: ER Collect Specimen Source : Plasma Specimen Collected: 12/05/2019 12:38 PM Resulting Agency: [facility] Test ID: MGPL Released on: 12/05/2019 11:20 AM [id number] LACTIC ACID [#[id number]] P riority: STAT Class: ER Collect Specimen Source: Plasma Specimen Collected: 12/05/2019 12:40 PM Resultin g Agency: [facility] Test ID: LAC Released on: 12/05/2019 11:20 AM [id number] PROTHR OMBIN TIME + INR [#[id number]] Priority: STAT Class: ER Collect Specimen Source: Plasma Spe cimen Collected: 12/05/2019 12:38 PM Resulting Agency: [facility] Test ID: APTHR R eleased on: 12/05/2019 11:20 AM [id number] URINALYSIS W/ RFLX MICROSCOPIC [#[id number]] Prior ity: STAT Class: ER Collect Specimen Source: Urine Specimen Collected: 12/05/2019 2:45 PM Resultin g Agency: [facility] Test ID: UA Released on: 12/05/2019 11:20 AM [id number] JAYLAN M [#[id number]] Priority: STAT Class: ER Collect Standing Order Information Remaining Occurrences:0/1 Interval:ONE TIME Last released:12/05/2019 Released orders : SunDec 05, 2019 11:40 AM by: MECHELLE GAMBLE [id number] LITHIUM [# [id number]] Priority: STAT Class: ER Collect Specimen Source: Serum Specimen Collected: 12/05/2019 12 :38 PM Resulting Agency: [facility] Test ID: LI Released on: 12/05/2019 11:40 AM [id number] LITHIUM [#[id number]] Canceled Priority: STAT Class: ER Collect Canceled by TENA, LAB IN [facility] on SunDec 05, 2019 11:42 AM Reason: Other Comment: Duplicate Standing Order Information Remaining Occurrences:0/1 Interval:ONE TIME Last released:0 12/05/2019 Released orders: SunDec 05, 2019 11:41 AM by: JULIO MANZO [id number] LITHIUM [#[id number]] Canceled Priority: STAT Class: ER Collect Specimen Collected: 12/05/2019 11:45 AM Resulting Agency: [facility] Test ID: LI Canceled by TENA, [facility] on SunDec 05, 2019 11:42 AM Reason: Other Comment: Duplicate Rele ased on: 12/05/2019 11:41 AM [id number] LACTIC ACID [#[id number]] Priority: STAT Cl ass: ER Collect Resulting Agency: [facility] Test ID: LAC Released on: 12/05/2019 12:06 PM [id number] AMMONIA [#[id number]] Priority: Routine Class: ER Collect Specimen Source: Blood Standing Order Information Remaining Occurrences:0/1 Interval:ONE TI ME Last released:12/05/2019 Released orders: SunDec 05, 2019 3:19 PM by: Javier KHAN [id number] AMMONIA [#[id number]] Priority: STAT Class: ER Collect Spe cimen Source: Blood Resulting Agency: [facility] Test ID: NH3 Released on: 12/05/2019 3:19 PM [id number] BILIRUBIN, CONFIRM [#[id number]] Priority: Routine Class : ER Collect Resulting Agency: [facility] Test ID: ICTO Standing Order Informat ion Remaining Occurrences:0/1 Released orders: SunDec 05, 2019 2:45 PM by: Automatic B atch Process [id number] BILIRUBIN, CONFIRM [#[id number]] Priority: Routine Class : ER Collect Specimen Source: Miscellaneous sample Specimen Collected: 12/05/2019 2:45 PM Resultin g Agency: [facility] Test ID: ICTO Released on: 12/05/2019 2:45 PM [id number] 6 EKG, 12 LEAD, INITIAL [#[id number]] Priority: STAT Class: Hospital Performed Stand ing Order Information Remaining Occurrences:0/1 Interval:ONE TIME Last released:0 12/05/2019 Released orders: SunDec 05, 2019 11:20 AM by: JULIO MANZO Reason for Exam: -> Chest Pain [id number] EKG, 12 LEAD, INITIAL [#[id number]] Priority: STAT Class: H ospital Performed Resulting Agency: [facility] Test ID: [id number] Reason for Exam: -> Chest Pain Releas ed on: 12/05/2019 11:20 AM [id number] XR CHEST PORT [#[id number]] Priority: STAT Clas s: Hospital Performed Standing Order Information Remaining Occurrences:0/1 Interval:ONE TI ME Last released:12/05/2019 Released orders: SunDec 05, 2019 11:20 AM by: JULIO MANZO Reason for Exam -> Chest Pain [id number] CT HEAD WO CONT [#[id number]] Priority: S TAT Class: Hospital Performed Standing Order Information Remaining Occurrences:0/1 Inter haile:ONE TIME Last released:12/05/2019 Released orders: SunDec 05, 2019 11:20 AM by: JULIO MANZO Reason for Exam -> ams [id number] XR PELV AP ONLY [#[id number]] Priority: S TAT Class: Hospital Performed Standing Order Information Remaining Occurrences:0/1 Inter haile:ONE TIME Last released:12/05/2019 Released orders: SunDec 05, 2019 11:20 AM by: JULIO MANZO Reason for Exam -> fall [id number] XR CHEST PORT [#[id number]] Priority: STAT Class: Hospital Performed Specimen Collected: 12/05/2019 12:21 PM Resulting Agency: [facility] Test ID: [id number] Reason for Exam -> Chest Pain Released on: 12/05/2019 11:[id number] HEAD WO CONT [#[id number]] Priority: STAT Class: Hospital Performed Specimen Collected : 12/05/2019 12:43 PM Resulting Agency: [facility] Test ID: [id number] Reason for Exam -> ams R eleased on: 12/05/2019 11:20 AM [id number] XR PELV AP ONLY [#[id number]] Priority: STAT Class: Hospital Performed Specimen Collected: 12/05/2019 12:23 PM Resulting Agency: [facility] Test ID : [id number] Reason for Exam -> fall Released on: 12/05/2019 11:20 AM [id number] MRI BRAIN WO CONT [#[id number]] Priority: STAT Class: Hospital Performed Standing Order Information Remaining Occurrences:0/1 Interval:ONE TIME Last released:12/05/2019 Released orders : SunDec 05, 2019 3:19 PM by: JOSE KHAN Reason for Exam -> ams [id number] MRI BRA IN WO CONT [#[id number]] Priority: STAT Class: Hospital Performed Specimen Collected : 12/05/2019 5:03 PM Resulting Agency: [facility] Test ID: [id number] Reason for Exam -> ams R eleased on: 12/05/2019 3:19 PM [id number] CULTURE, BLOOD [#[id number]] Priority: Routi ne Class: ER Collect Specimen Source: Blood Standing Order Information Remaining Occurrences:0 /1 Interval:ONE TIME Last released:12/05/2019 Released orders: SunDec 05, 2019 11:20 AM by: JULIO MANZO [id number] CULTURE, BLOOD [#[id number]] Priority: STAT Cl ass: ER Collect Specimen Source: Blood Standing Order Information Remaining Occurrences:0/1 I nterval:ONE TIME Last released:12/05/2019 Released orders: SunDec 05, 2019 11:20 AM by: JULIO MANZO3 CULTURE, BLOOD [#[id number]] Priority: STAT Class: E R Collect Specimen Source: Blood Specimen Collected: 12/05/2019 12:38 PM Resulting Agency: [facility] Test ID: HBCS Released on: 12/05/2019 11:20 AM [id number] CULTURE, BLOOD [#[id number]] Priority: STAT Class: ER Collect Specimen Source: Blood Specimen Collected: 12/04 12:30 PM Resulting Agency: [facility] Test ID: HBCS Released on: 12/05/2019 11:20 AM CEFTRIAXONE 1 GRAM IVPB MBP [#[id number]] Priority: STAT Class: Normal An tibiotic Indications -> Sepsis of Unknown Etiology SODIUM CHLORIDE 0.9 % IV [#[id number]] Priority: STAT Class: Normal SODIUM CHLORIDE 0.9 % IV [#[id number]] Priority : STAT Class: Normal ENOXAPARIN 40 MG/0.4 ML SUB-Q SYRINGE [#[id number]] Priority: STAT Class: N ormal ENOXAPARIN 40 MG/0.4 ML SUB-Q SYRINGE [#[id number]] Priority: STAT Class: Normal FUROSEMIDE 10 MG/ML IJ SOLN [#[id number]] Priority: STAT Class: Normal CON53 IP CONSULT TO PS YCHIATRY [#[id number]] Priority: STAT Class: Hospital Performed Standing Order Information Remaining Occurrences:0/1 Interval:ONE TIME Last released:12/05/2019 Released orders : SunDec 05, 2019 11:42 AM by: JULIO MANZO Reason for Consult: -> si Did you call or spea k to the consulting provider? -> No Consult To -> si CON53 IP CONSULT TO PSYCHIATRY [#[id number]] Priority: STAT Class: Hospital Performed Reason for Consult: -> si Did you call or spea k to the consulting provider? -> No Consult To -> si Released on: 12/05/2019 11:42 AM CON62 IP CON SULT TO INTERNAL MEDICINE [#[id number]] Priority: STAT Class: Hospital Performed Standing Order Inf ormation Remaining Occurrences:0/1 Interval:ONE TIME Last released:12/05/2019 Release d orders: SunDec 05, 2019 2:16 PM by: CARLA OTERO Reason for Consult: -> Altered mental st atus, Dr. Canas to admit Did you call or speak to the consulting provider? -> Yes CON62 IP CONSULT TO INTERNAL MEDICINE [#[id number]] Priority: STAT Class: Hospital Performed Reason for Consu lt: -> Altered mental status, Dr. Canas to admit Did you call or speak to the consulting provider? -> Yes Released on: 12/05/2019 2:16 PM CON53 IP CONSULT TO PSYCHIATRY [#[id number]] Priority: STAT Class: Hospital Performed Standing Order Information Remaining Occurrences:0 /1 Interval:ONE TIME Last released:12/05/2019 Released orders: SunDec 05, 2019 2:41 PM by: RITIKA CANAS Reason for Consult: -> adverse med reaction Did you call or speak to t he consulting provider? -> No Consult To -> Dr Aguirre Schedule When? -> TODAY CON9 IP CONSULT TO N EUROLOGY [#[id number]] Priority: STAT Class: Hospital Performed Standing Order Information Remaining Occurrences:0/1 Interval:ONE TIME Last released:12/05/2019 Released orders : SunDec 05, 2019 2:41 PM by: RITIKA CANAS Reason for Consult: -> encephalopathy adverse drug reaction Did you call or speak to the consulting provider? -> No Consult To -> Dr Jacob Schedule When? -> TODAY CON53 IP CONSULT TO PSYCHIATRY [#[id number]] Priority: STAT Class: H ospital Performed Reason for Consult: -> adverse med reaction Did you call or speak to the consulting provider? -> No Consult To -> Dr Aguirre Schedule When? -> TODAY Released on: 12/05/2019 2:41 P M CON9 IP CONSULT TO NEUROLOGY [#[id number]] Priority: STAT Class: Hospital Performe d Reason for Consult: -> encephalopathy adverse drug reaction Did you call or speak to the consulting provider? -> No Consult To -> Dr Jacob Schedule When? -> TODAY Released on: 12/05/2019 2:41 P M [id number] INITIAL PHYSICIAN ORDER: OBSERVATION* [#[id number]] Priority: Routine Class: ADT Pend Trans milvia Standing Order Information Remaining Occurrences:0/1 Interval:ONE TIME Last release d:12/05/2019 Released orders: SunDec 05, 2019 2:00 PM by: LUZ ELENA GATES Patient Class: -> OBS ERVATION Admitting Diagnosis -> Encephalopathy acute Admitting Physician -> CARLA OTERO Attending Physician -> CARLA OTERO [id number] INITIAL PHYSICIAN ORDER: OBSERVATION* [#[id number]] Priority: Routine Class: ADT Pend Transfer Patient Class: -> OBSERVATION Admitting Diagnosis -> Encephalopathy acute Admitting Physician -> CARLA OTERO Attending Physician -> CARLA OTERO Released on: 12/05/2019 2:00 PM [id number] INITIAL PHYSICIAN ORDER: INPATIENT [#[id number]] Pristeph brayy: Routine Class: ADT Pend Transfer [...] o- n- ) Admitting Diagnosis - > Osg-mmcn-gpacosm adverse reaction to medication Admitting Physician -> RITIKA CANAS Physician -> RITIKA CANAS Estimated Length of Stay -> 5-7 Midnights Discharge Plan: -> Other (Specify) [id number] INITIAL PHYSICIAN ORDER: INPATIENT [#[id number]] Priority: Routine Class: ADT Pend Tr ansfer [...] i- o- n- ) Admitting Diagnosis -> Fff-rvfr-lyysspp adverse reaction to medication Admitting Physician -> RITIKA CANAS Attending Physician -> MARY CANAS Estimated Length of Stay -> 5-7 Midnights Discharge Plan: -> Other (Specify) [id number] INITI AL PHYSICIAN ORDER: INPATIENT [#[id number]] Priority: Routine Class: ADT Pend Transfer Status: [...] i- o- n- ) Admitting Diagnosis -> Mnx-khxa-zrwpapq adverse reaction to medication Admitting Physician -> RITIKA CANAS Attending Physician -> MARY CANAS Estimated Length of Stay -> 5-7 Midnights Discharge Plan: -> Other (Specify) Released on: 12/05/2019 2:41 PM [id number] INITIAL PHYSICIAN ORDER: INPATIENT [#[id number]] Priority: Routine Class : ADT Pend Transfer [...] o- n- ) Adm itting Diagnosis -> Brx-clkq-acrhric adverse reaction to medication Admitting Physician -> RITIKA CANAS Attending Physician -> RITIKA CANAS Estimated Length of Stay -> 5-7 Midnights Discharge Plan: -> Other (Specify) Released on: 12/05/2019 2:41 PM COD2 FULL CODE [#[id number]] Priority: STAT Class: Hospital Performed Standing Order Information Remaining Occurrences:0 /1 Interval:CONTINUOUS Last released:12/05/2019 Released orders: SunDec 05, 2019 2:41 PM by: RITIKA CANAS COD2 FULL CODE [#[id number]] Priority: STAT Cl ass: Hospital Performed Released on: 12/05/2019 2:41 PM [id number] EEG 12-26 HR W/VIDEO [# [id number]] Priority: Routine Class: Hospital Performed Standing Order Information Remaining Occurre nces:0/1 Interval:ONE TIME Last released:12/05/2019 Released orders: SunDec 04 3:19 PM by: JOSE KHAN Reason for Exam: -> ams [id number] EEG 12-26 HR W/VIDEO [#[id number]] Priority: STAT Class: Hospital Performed Resulting Agency: [facility] EEG Test ID: NEU1 [id number] Reason for Exam: -> ams Released on: 12/05/2019 3:19 Maxwell Corona MR#: [id number] * Rm: [id number] 01Ht: 5' 5" Wt: 300 lb Code: Full Code Iso:Diagnosis:Encep halopathy acute [G93.40]Allergies: No Known Allergies -------- Current as of: 12/05/191806 NB=New Bag --aspirin (ASPIRIN) tablet 325 mg #[id number] Admin Amount: 1 Tab (1 x 325 mg Tab) Ordered Dose: 325 mg Route: Oral Freq: ONCE Start Date: 12/24/13 No administration times (back 96 hours, ahead 96 hours). ------diphenhydrAMINE (BENADRYL) capsule 50 mg #[id number] Admin Amount: 1 Cap (1 x 50 mg Cap) Ordered Dose: 50 mg Route: Ora l Freq: NOW Start Date: 12/24/13 No administration times (back 96 hours, ahe ad 96 hours). ------diazepam (VALIUM) tablet 5 mg #[id number] Admin Amount: 1 Tab (1 x 5 mg Tab) Ordered Dose: 5 mg Route: Oral Freq: ON CE Start Date: 12/24/13 No administration times (back 96 hours, ahead 96 hours). ------lidocaine (XYLOCAINE) 10 mg/mL (1 %) injection 1-30 mL #[id number] Admin Amount: 1-30 mL Ordered Dose: 1-30 mL Route: IntraDERMal Freq: ONCE Start Date: 12/24/13 No administration times (back 96 hours, ahead 96 hours). ------heparin (PF) 2 units/ml in NS infusion 2,000 Units #[id number] Admin Amount: 1,000 mL = 2,000 Units of 2 Units/mL Ordered Dose: 1,000 mL [place]: I[place] Freq: ONCE Start Date: 12/24/13 No administration times (back 96 hours, ahead 96 hours). ------heparinized saline 2 units/mL infusion 1,000 Units #[id number] Admin Amount: 500 mL = 1,000 Units of 2 Units/mL Ordered Dose: 500 mL [place]: IntraarTERial Freq: ONCE Start Date: 12/24/13 No administration times (back 96 hours, ahead 96 hours). ------0.9% sodium chloride infusion #[id number] Ordered Dose: 75 mL/hr Route: IntraVENous Freq: CONTINUOUS Start Date: 12/24/13 Rate: 75 mL/hr Duration: No administration times (back 96 hours, ahead 96 hours). ------ioversol (OPTIRAY) 320 mg iodine/mL contrast injection 1-100 mL #[id number] Admin Amount: 1-100 mL Ordered Dose: 1-100 mL Route: IntraVENous Freq: RAD O NCE Start Date: 12/24/13 No administration times (back 96 hours, ahead 96 hours).Maxwell Bray MR#: [id number] * Rm: 441-01Ht: 5' 5.75" Wt: 300 lb Cod e: Full Code Iso:Diagnosis:Encephalopathy acute [G93.40]Allergies: No Known Allergies -------- Current as of: 12/05/19 180 NB=New Bag --gadobutrol (GADAVIST) contrast solution 1-10 mL #[id number] Admin Amount: 1-10 mL Ordered Dose: 1-10 mL Route: IntraVENous Freq: RAD O NCE Start Date: 01/13/14 No administration times (back 96 hours, ahead 96 hours). ------sodium chloride (NS) flush 5-10 mL #[id number] Admin Amount: 5-10 mL Ordered Dose: 5-10 mL Route: IntraVENous Freq: RAD ONCE Start Date: 01/13/14 No administration times (back 96 hours, ahead 96 hours). ------sodium chloride (NS) 0.9 % flush #[id number] Ordered Dose: Route: Freq: Start Date: 01/13 No administration times (back 96 hours, ahead 96 hours). ------morphine injection 2 mg #[id number] Admin Amount: 1 mL = 2 mg of 2 mg/mL Ordered Dose: 2 mg Route: IntraVENous Freq: NOW Start Date: 03/13/15 No administration times (back 96 hours, ahe ad 96 hours). ------influenza vaccine (4 yr+)(PF) (FLUCELVAX QUAD) inj ection 0.5*#[id number] Admin Amount: 0.5 mL Ordered Dose: 0.5 mL Route: IntraMUSCular Freq: PRIOR TO DISCHARGE Start Date: 03/30/16 No administration times (back 96 hours, ahead 96 hours). ------oxyCODONE-acetaminophen (PERCOCET) 5-325 mg per tablet 1 Tab #[id number] Admin Amount: 1 Tab Ordered Dose: 1 Tab Route: Oral Freq: NOW Start Date: 09/07/17 No administration times (back 96 hours, ahead 96 hours). ------barium sulfate (READICAT) 2.1 % (w/v), 2.0 % (w /w) oral suspension 9*#[id number] Admin Amount: 900 mL Ordered Dose: 900 mL Route: Oral Delgado q: RAD ONCE Start Date: 10/15/17 No administration times (back 96 hours, ahead 96 hours). ------iopamidol (ISOVUE 300) 61 % contrast injection 100 mL #[id number] Admin Amount: 100 mL Ordered Dose: 100 mL Route: IntraVENous Freq: RAD ONC E Start Date: 10/15/17 No administration times (back 96 hours, ahead 96 hours).Maxwell Bray MR#: [id number] * Rm: 441-01Ht: 5' 5.75" Wt: 300 lb Code: Full Code Iso:Diagnosis:Encephalopathy acute [G93.40]Allergies: No Known Allergies -------- Current as of: 12/05/19 180 NB=New Bag --risperiDONE (RisperDAL m-tabs) disintegrating tablet 1 mg #[id number] Admin Amount: 1 Tab (1 x 1 mg Tab) Ordered Dose: 1 mg Route: Oral Freq: ONCE Start Date: 12/24/17 No administration times (back 96 hours, ahead 96 hours). ------ALPRAZolam (XANAX) tablet 2 mg #[id number] Admin Amount: 4 Tab (4 x 0.5 mg Tab) Ordered Dose: 2 mg Route: Ora l Freq: NOW Start Date: 12/24/17 No administration times (back 96 hours, ahe ad 96 hours). ------lamoTRIgine (LaMICtal) tablet 100 mg #[id number] Admin Amount: 1 Tab (1 x 100 mg Tab) Ordered Dose: 100 mg Route: Oral Delgado q: ONCE Start Date: 12/24/17 No administration times (back 96 hours, ahead 96 hours). ------OLANZapine (ZyPREXA zydis) disintegrating tablet 5 mg #[id number] Admin Amount: 1 Tab (1 x 5 mg Tab) Ordered Dose: 5 mg Route: Oral [place] q: ONCE Start Date: 12/25/17 No administration times (back 96 hours, ahead 96 hours). ------LORazepam (ATIVAN) tablet 2 mg #[id number] Admin Amount: 4 Tab (4 x 0.5 mg Tab) Ordered Dose: 2 mg Route: Ora l Freq: NOW Start Date: 12/25/17 No administration times (back 96 hours, [facility] ad 96 hours). ------LORazepam (ATIVAN) injection 1 mg #[id number] Admin Amount: 0.5 mL = 1 mg of 2 mg/mL Ordered Dose: 1 mg Route: Int Katherin Freq: NOW Start Date: 12/25/17 No administration times (back 96 hours, e ad 96 hours). ------barium sulfate (EZ PAQUE) 96 % (w/w) contrast suspension 17 6 g #[id number] Admin Amount: 176 g Ordered Dose: 176 g Route: Oral Freq: RAD ONCE Start Date: 08/02/18 No administration times (back 96 hours, ahead 96 hours). ------barium sulfate (EZ PAQUE) 96 % (w/w) contrast s uspension 176 g #[id number] Admin Amount: 176 g Ordered Dose: 176 g Route: Oral Delgado q: RAD ONCE Start Date: 08/02/18 No administration times (back 96 hours, ahead 96 hours).Maxwell Ritter MR#: [id number] * Rm: 441-01Ht: 5' 5.75" Wt: 300 lb Cod e: Full Code Iso:Diagnosis:Encephalopathy acute [G93.40]Allergies: No Known Allergies -------- Current as of: 12/05/191806 NB=New Bag --aspirin chewable tablet 162 mg #[id number] Admin Amount: 2 Tab (2 x 81 mg Tab) Ordered Dose: 162 mg Route: Oral Freq: NOW Start Date: 08/10/19 No administration times (back 96 hours, ahead 96 hours). ------0.9% sodium chloride infusion 1,000 mL #[id number] Admin Amount: 1,000 mL Ordered Dose: 1,000 mL Route: IntraVENous Freq: ONC E Start Date: 08/16/19 Rate: 1,000 mL/hr Duration: No administration ti mes (back 96 hours, ahead 96 hours). ------methylPREDNISolone (PF) (Solu-MEDROL) injection 125 mg #[id number] Admin Amount: 2 mL = 125 mg of 125 mg/2 mL Ordered Dose: 125 mg Route: Int raVENous Freq: NOW Start Date: 08/16/19 No administration times (back 96 hours, ahe ad 96 hours). ------aspirin chewable tablet 162 mg #[id number] Admin Amount: 2 Tab (2 x 81 mg Tab) Ordered Dose: 162 mg Route: Oral Delgado q: NOW Start Date: 08/16/19 No administration times (back 96 hours, ahead 96 hours). ------haloperidoL (HALDOL) tablet 5 mg #[id number] Admin Amount: 1 Tab (1 x 5 mg Tab) Ordered Dose: 5 mg Route: Oral Delgado q: ONCE Start Date: 10/30/19 No administration times (back 96 hours, ahead 96 hours). ------cefTRIAXone (ROCEPHIN) 1 g in 0.9% sodium chloride (MBP/ADV) 50 m L M*#[id number] Admin Amount: 1 g Ordered Dose: 1 g Route: IntraVENous Freq: NOW Start Date: 12/05/19 Rate: 100 mL/hr Duration: 30 Minutes Administration linda es (back 96 hours, ahead 96 hours): 12/05/19: 1428NB -----0.9% sodium chloride infusion #[id number] Ordered Dose: 125 mL/hr Route: IntraVENous Freq: CONTINUOUS Start Date: 12/05/19 Rate: 125 mL/hr Duration: Administration times (back 96 hours, ahead 96 hours): 12/05/19: 1408NBLuisitoMaxwell donovan MR#: [id number] * Rm : 441-01Ht: 5' " Wt: 300 lb Code: Full Code Iso:Diagnosis:Encephalopathy acute [G93. 40]Allergies: No Known Allergies -------- Current as of: 12/05/19 1807 NB=New Bag --enoxaparin (LOVENOX) injection 40 mg #[id number] Admin Amount: 0.4 mL = 40 mg of 40 mg/0.4 mL Ordered Dose: 40 mg [place]: SubCUTAneous Freq: EVERY 24 HOURS Start Date: 12/05/19 Administration times (back 96 h ours, ahead 96 hours): 12/05/19: 209912/06/19: 209912/07/19: 209912/08/19: 2099 ---furosemide (LASIX) injection 20 mg #[id number] Admin Amount: 2 mL = 20 mg of 10 mg/mL Ordered Dose: 20 mg [place]: IntraVENous Freq: ONCE Start Date: 12/05/19 Administration [...] ormationFollow-up With:Ritika Canas MDDetails:Comments:Contact Info:[place] [address] Sosa [phone] Name Value Range Interpretation Code Description Data Melani rce(s) Supporting Document(s ) ID Date Data Source [id number] 12/05/2019 04:36:09 PM EDT [facility] The history is provided by the [...] morbidity or mortality cardiac cath at [facility] approx 6-8 months ag o Other [...] QTC Calculation (Bezet) 515 ms Calculated P [place] 40 degrees Calculat ed R [place] 41 degrees Calculated T [place] 147 degrees Diagnosis Sinus tachycardiaProb able left [...] Time: 12/05/19 12:38 PMResult Value Ref Range [place] level 1.53 (HH) 0.6 - 1.2 MMOL/LLACTIC ACID Collection Time: 12/04 12:40 PMResult Value Ref Range Lactic acid 1.1 0.4 - 2.0 MMOL/LEKG:Sinus tachy cardia at 100 BPM, normal axis, nothing acute.Interpreted by Julio Manzo MD11:2 0 AM monitor worker reading shows sinus tachycardia at 100 BPM. [...] monitoring, CXR, and head CT. Will manager architectural ocephin, IV fluids, and oxygen. Will consult [...] Supporting Document(s ) ID Date Data Source [id number] 12/05/2019 04:05:06 PM EDT [facility] [address] [place] [address] [email or web address] CONSULT NOTEPatient: Maxwell Bray Se x: male [...] or sensory fuentes es. Lab significant of [place] 1.53 and elevatedliver enzymes. Neurology consult ed for encephalopathy/drug adverse reaction.Past Medical History:Diagnosis Date Other unknown and unspecified cause of morbidity or mortality cardiac cath at [facility] approx 6-8 months ago Other [...] QTC Calculation (Bezet) 515 ms Calculated P [place] 40 degrees Calculated R [place] 41 degrees Calculated T [place] 147 degrees Diagnosis Sinus tachycardiaProbable left atrial [...] Time: 12/05/19 12:38 PMResult Value Ref Range [place] level 1.53 (HH) 0.6 - 1.2 MMOL/LLACTIC [...] were created on an independent workstation. [facility]izing [facility] the examination was performed to optimize image [...] QTC Calculation (Bezet) 515 ms Calculated P [place] 40 degrees Calculat ed R [place] 41 degrees Calculated T [place] 147 degrees Diagnosis Sinus tachycardiaProb able left [...] adalberto M79.2 Seizure disorder (HCC) G40.909 Spells [id number] Severe obesity (HCC) E66 .01 Depression F32.9 Anxiety F41.9 Bipolar disorder (HCC) F31.9 Depressive disorde r F32.9 Status post gastric bypass for obesity Z98.84 Morbid obesity (HCC) E66 .01 Mixed anxiety and depressive disorder F41.8 Vitamin D deficiency E55.9 Bipol ar disorder with severe depression (HCC) F31.4 Encephalopathy acute G93.40 Adve rse drug reaction, initial encounter T50.905A Xob-naga-poiruec adverse reaction to me dication T88.7XXA49 year old male with pmh as stated above and now with AMS and genera lizedweakness - most likely secondary to lithium toxicity - ? Seizure.Plan: Mri Brain Ammonia Monitor lithium level daily EEG - 24 hrs Seizure precautionsPaulson Gerald Flores 2019 3:19 [id number] Name Value Range Interpretation Code Description Data Melani rce(s) Supporting Document(s ) ID Date Data Source [id number] 12/05/2019 03:37:45 PM EDT [facility] sbar-q given to Ev berger to floor Name Value Range Interpretation Code Description Data Melani rce(s) Supporting Document(s ) ID Date Data Source [id number] 12/05/2019 03:29:57 PM EDT [facility] sbar-q given to Sheri UGALDE on floor Name Value Range Interpretation Code Description Data Melani rce(s) Supporting Document(s ) ID Date Data Source [id number] 12/05/2019 03:28:02 PM EDT [facility] History & PhysicalBrian Anam Bray is [...] h igh dose amytriptylene 200 mg nightly, [place], andVraylar 6 mg. :[place] level on prior admission therapeutic. Patient's wifecontactedthis [...] morbidity or mortality cardiac cath at [facility] approx 6-8 months ag o Other [...] Calculati on (Bezet) 515 ms Calculated P [place] 40 degrees Calculated R [place] 41 degrees Elena culated T [place] 147 degrees Diagnosis Sinus tachycardiaProbable left atrial [...] Time: 12/05/19 12:38 PMResult Value Ref Range [place] level 1.53 (HH) 0.6 - 1.2 MMOL/LLACTIC ACID Collection Time: 12/04 12:40 PMResult Value Ref Range Lactic acid 1.1 0.4 - 2.0 MMOL/lAl lab results for the last 24 hours reviewed. Serun [place] level toxicAssessment/PlanPrinci pal Problem: Adverse drug reaction, initial encounter (12/05/2019) LithiumActive Prob lems: Encephalopathy acute (12/05/2019) Vch-wceu-hlfresw adverse reaction to med ication (12/05/2019)Neuro, and psych evaluation, hydrationGeorge MD Corey Name Value Range Interpretation Code Description Data Melani rce(s) Supporting Document(s ) ID Date Data Source [id number] 12/06/2019 12:36:10 PM EDT [facility] Name Value Range Interpretation Description Data Sup porting Code Source(s) Document(s ) Service comment [facility] Bacteria [facility] - Good identified in [facility] Unspecified Hospital specimen by Culture ID Date Data Source [id number] 12/05/2019 04:18:26 PM EDT [facility] - Good [facility] Name Value Range Interpretation Description Data Sup porting Code Source(s) Document(s ) Color of Urine YEL Abnormal (applies [facility] - to non-numeric Good results) [facility] Appearance of CLEAR Abnormal (applies [facility] - Urine to non-numeric Good results) [facility] Specific gravity 1.033 1.003-1. Above high normal [facility] - of Urine by 030 Good Refractometry [facility] pH of Urine by 5.5 4.6-8.0 [facility] - Test strip Good [facility] Protein 30 mg/dL NEG Abnormal (applies [facility] - [Mass/volume] in to non-numeric Good Urine by Test results) [facility] Glucose NEG [facility] - [Mass/volume] in Good Urine by [facility] Automated test [facility] strip Ketones 15 mg/dL NEG Abnormal (applies [facility] - [Presence] in to non-numeric Good Urine by results) [facility] test [facility] strip Bilirubin.total NEG Abnormal (applies [facility] - [Presence] in to non-numeric Good Urine results) [facility] Hemoglobin NEG [facility] - [Presence] in Good Urine by Test [facility] Hospital Urobilinogen 1.0 0.2-1.0 [facility] - [Presence] in EU/dL Good Urine by [facility] Automated test [facility] strip Nitrite NEG [facility] - [Presence] in Good Urine by [facility] test Hospital strip Leukocyte NEG [facility] - esterase Good [Presence] in [facility] Urine by Hospital Automated test strip Leukocytes 0-5 [facility] - [Presence] in Good Urine sediment [facility] by [facility] microscopy Erythrocytes 0-2 [facility] - [#/area] in Good Urine sediment [facility] by [facility] high power field Epithelial cells 0-10 [facility] - [#/area] in Good Urine sediment [facility] by [facility] high power field Bacteria NONE Abnormal (applies [facility] - [Presence] in to non-numeric Good Urine sediment results) [facility] by [facility] microscopy ID Date Data Source [id number] 12/05/2019 03:26:35 PM EDT [facility] Name Value Range Interpretation Description Data Sup porting Code Source(s) Document(s ) Bilirubin NEG [facility] [Presence] in [facility] Urine by Hospital Confirmatory method ID Date Data Source [id number] 12/05/2019 02:22:27 PM EDT [facility] I spoke to Dr. Canas regarding Observation Status. Dr. Canas said patient will bemade In Patient Status today. Name Value Range Interpretation Code Description Data Melani rce(s) Supporting Document(s ) ID Date Data Source [id number] 12/05/2019 02:03:27 PM EDT [facility] SW/Psych Screener attempted to meet with Pt for MH evaluation. Pt was foundlying on stretcher with his eyes open, staring at the wall. Food Production Machine Operator knows this Ptfrom previous admission to the medical floor. When ask ed if Pt rememberedwriter, Pt appeared confused, but said he did. Pt stated he fell today, doesn'tremember how he was brought to the hospital. Pt appeared to be searching for hiswords and was having difficulty speaking. Pt unclear of where he is, stating"[place]" when asked where he was and "[place]" when asked what month it was. Whenasked if Pt was exhibiting any feelings of S/I, H/I or A/V Hallucinatio ns, Ptresponded with, "No," and confirmed he has been compliant with his psychiatricm edications. Food Production Machine Operator conferred with ER Attending, Dr. 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 [...] Supporting Document(s ) ID Date Data Source [id number] 12/05/2019 01:31:37 PM EDT [facility] Name Value Range Interpretation Description Data Sup porting Code Source(s) Document(s ) Lactate 1.1 0.4-2.0 [facility] - Good [Moles/volu MMOL/L [facility]] in Hospital Serum or Plasma ID Date Data Source [id number] 12/10/2019 05:19:22 AM EDT [facility] Name Value Range Interpretation Description Data Sup porting Code Source(s) Document(s ) Service comment [facility] Bacteria [facility] - Good identified in [facility] Unspecified Hospital specimen by Culture ID Date Data Source [id number] 12/05/2019 02:14:34 PM EDT [facility] Name Value Range Interpretation Description Data Sup porting Code Source(s) Document(s ) [place] 1.53 0.6-1.2 Above upper panic [facility] - Good [Moles/volu MMOL/L limits [facility]] in Hospital Serum or Plasma CALLED TO AND READ BACK BYSUSI GAMBLE 1414 12/05/19 [facility] ID Date Data Source [id number] 12/05/2019 01:31:37 PM EDT [facility] Name Value Range Interpretation Description Data [...] to 1.50 ng/mL ID Date Data Source [id number] 12/05/2019 01:31:37 PM EDT [facility] Value Range Interpretation Description Data [...] non- Americans (GFRNA), and normalized to 1.7 1f4ejsl surface area. The physician must decide which [...] Serum or Plasma [facility] Hosp ital Bilirubin.total 0.9 mg/dL 0.2-1.0 [facility] - Good [Mass/volume] in Serum or [facility] Plasma Alanine aminotransferase 34 U/L 13-61 [facility] - Good [Enzymatic activity/volume] [facility] in Serum or Plasma Aspartate aminotransferase 47 U/L 15-37 Above high [facility] - Good [Enzymatic activity/volume] normal [facility] in Serum or Plasma by With P-5'-P Alkaline phosphatase 171 U/L 45-117 Above high [facility] - Good [Enzymatic activity/volume] normal [facility] in Serum or Plasma Protein [Mass/volume] in 7.5 g/dL 6.4-8.2 [facility] - Good Serum or Plasma [facility] Albumin [Mass/volume] in 3.8 g/dL 3.5-4.7 [facility] - Good Serum or Plasma by [facility] Bromocresol purple (BCP) dye binding method Globulin [Mass/volume] in 3.7 g/dL 1.7-4.7 [facility] - Good Serum by calculation [facility] Albumin/Globulin [Mass 1.0 0.7-2.8 [facility] - Good Ratio] in Serum or Plasma [facility] ID Date Data Source [id number] 12/05/2019 01:31:37 PM EDT [facility] - Good [facility] Name Value Range Interpretation Description Data Sup porting Code Source(s) Document(s ) Magnesium 2.9 mg/dL 1.6-2.6 Above high normal [facility] - Good [Mass/volume] [facility] in Serum or Hospital Plasma ID Date Data Source [id number] 12/05/2019 01:20:04 PM EDT [facility] - Good [facility] Name Value Range Interpretation Description Data Sup porting Code Source(s) Document(s ) Prothrombin 10.6 sec 9.4-11.1 [facility] - Good time (PT) [facility] INR in 1.0 0.8-1.2 [facility] - Good Platelet poor [facility] plasma by [facility] Coagulation assay ID Date Data Source [id number] 12/05/2019 01:07:21 PM EDT [facility] - Good [facility] Name Value Range Interpretation Description Data Sup porting Code Source(s) Document(s ) Leukocytes 12.4 4.8-10.6 Above high normal [facility] - [#/volume] in K/uL Good Blood by [facility] Automated count [facility] Erythrocytes 5.03 4.70-6.0 [facility] - [#/volume] in M/uL 0 Good Blood by [facility] Hemoglobin 15.4 14.0-18. [facility] - [Mass/volume] in g/dL 0 Good Blood [facility] Hematocrit 45.8 % 42.0-52. [facility] - [Volume 0 Good Fraction] of [facility] Blood by [facility] Automated count Erythrocyte mean 91.1 FL 81.0-94. [facility] - corpuscular 0 Good volume [Entitic [facility] volume] by [facility] Automated count Erythrocyte mean 30.6 PG 27.0-35. [facility] - corpuscular 0 Good hemoglobin [facility] [Entitic mass] Hospital by Automated count Erythrocyte mean 33.6 30.7-37. [facility] - corpuscular g/dL 3 Good hemoglobin [facility] [Mass/volume] by Automated count Erythrocyte 12.9 % 11.5-14. [facility] - distribution 0 Good width [Ratio] by [facility] Automated count Hospital Platelets 164 K/uL 130-400 [facility] - [#/volume] in [facility] Blood by [facility] Automated count [facility] Platelet mean 9.5 FL 9.2-11.8 [facility] - volume [Entitic Good volume] in Blood [facility] by Automated Hospital count Nucleated 0.0 PER 0 [facility] - erythrocytes/100 100 WBC Good leukocytes [facility] [Ratio] in Blood [facility] Nucleated 0.00 0.0-0.01 [facility] - erythrocytes K/uL Good [#/volume] in [facility] Segmented 80 % 48.0-72. Above high normal [facility] - neutrophils/100 0 [facility] leukocytes in [facility] Lymphocytes/100 8 % 18.0-40. Below low normal [facility] - leukocytes in 0 [facility] Monocytes/100 10 % 2.0-12.0 [facility] - leukocytes in [facility] Eosinophils/100 1 % 0.0-7.0 [facility] - leukocytes in [facility] Basophils/100 0 % 0.0-3.0 [facility] - leukocytes in [facility] Immature 0 % 0-0.5 [facility] - granulocytes/100 Good leukocytes in [facility] by Hospital Automated count Segmented 10.0 2.3-7.6 Above high normal [facility] - neutrophils K/UL Good [#/volume] in [facility] Lymphocytes 1.0 K/UL 0.9-4.2 [facility] - [#/volume] in [facility] Monocytes 1.2 K/UL 0.1-1.7 [facility] - [#/volume] in [facility] Eosinophils 0.1 K/UL 0.0-1.0 [facility] - [#/volume] in [facility] Basophils 0.0 K/UL 0.0-0.4 [facility] - [#/volume] in [facility] Immature 0.1 K/UL 0.0-0.17 [facility] - granulocytes Good [#/volume] in [facility] by Hospital Automated count Differential [facility] - cell count Good method - Blood [facility] ID Date Data Source [id number] 12/10/2019 05:19:23 AM EDT [facility] Name Value Range Interpretation Description Data Sup porting Code Source(s) Document(s ) Service comment [facility] Bacteria [facility] identified in [facility] Hospital specimen by Culture ID Date Data Source [id number] 12/05/2019 12:24:35 PM EDT [facility] PELVIS one view.History: TraumaThe study is suboptimal due to the patient's body habitus.There is no evidence of fracture , dislocation, subluxation, bone erosion orarthritis.IMPRESSION: Grossly normal s tudy. Signing date/time: 12/05/2019 12:24 PMSigned by: CURTIS VARMA Name Value Range Interpretation Code Description Data Melani rce(s) Supporting Document(s ) ID Date Data Source [id number] 12/05/2019 12:23:11 PM EDT [facility] CHEST 1 view (s)HISTORY: Chest pain.COMP [...] Supporting Document(s ) ID Date Data Source [id number] 12/05/2019 11:34:39 AM EDT [facility] BIBA for fall in the middle of the night while going to bathroomC/p left hip pain Name Value Range Interpretation Code Description Data Melani rce(s) Supporting Document(s ) ID Date Data Source [id number] 12/05/2019 11:21:27 AM EDT [facility] Please enter the current weight for this patient in [facility]. Thank you. Name Value Range Interpretation Code Description Data Melani rce(s) Supporting Document(s ) ID Date Data Source [id number] 11/23/2019 02:02:47 PM EDT [facility] Discharge SummaryPatient: Maxwell mackey Sex: male [...] E66.01ICD-9-CM: 278.01 07/19/2018 - Present Spells ICD-10-CM: LEQ7120TBB-4-CS: IMO00 01 04/08/2016 - Present Seizure disorder [...] tr eated with parenteral hydration with benefit o7vpaekdrkmrpkgjgkq responses. Of note i s fact that [...] Supporting Document(s ) ID Date Data Source [id number] 11/03/2019 09:41:35 PM EDT [facility] Verbal shift change report given to , RN (oncoming nurse) by Scott Beverly RN (offgoing nurse). Report included the fo llowing information SBAR, Kardex,Intake/Output, MAR and Recent Res ults. Name Value Range Interpretation Code Description Data [facility](s) Supporting Document(s ) ID Date Data Source [id number] 11/03/2019 03:34:07 PM EDT [facility] Per psych note, CM to confirm patient ap pt with psychiatristCall to Dr Mateo Méndez office # [phone], office [facility] ent aware of # to call to make his own appt, psychiatry info placed on AVs [facility] ent states his will be coming this evening to drive him homeCare Management InterventionsPCP Verified by CM: YesPalliative Care Criteria Met (RRAT>21 & CHF Dx)?: NoMode of Transport at Discharge: Other (see comment)( yanni maciel between approx5-6)Transition of Care Consult (CM Consult): Discharge Planning Physical Therapy Consult: NoOccupational Therapy Consult: NoSpeech Therapy Consul t: NoCurrent Support Network: Lives with Spouse, Own Home( [place] [phone])Confirm Follow Up Transport: FamilyThe Patient and/or Patient [...] Name Value Range Interpretation Code Description Data [facility](s) Supporting Document(s ) ID Date Data Source [id number] 11/03/2019 02:45:48 PM EDT [facility] PHYSICAL THERAPY TREATMENTPatient: Maxwell Bray (49 [...] Supporting Document(s ) ID Date Data Source [id number] 11/03/2019 01:09:08 PM EDT [facility] General Daily Progress NoteAdmit Date: Hospital [...] past 8 hrs: BP Temp Pulse Resp OuR22911/03/19 0752 115 /76 97.6 F (36.4 C) [...] Supporting Document(s ) ID Date Data Source [id number] 11/03/2019 10:52:30 AM EDT [facility] S/O patient has seen for follow up via V ideo . He is doing much better. Hedenies any auditory or visual hallucination any mor eHe has no suicidal or homicidal thoughtsHe reports that he sees Dr. marie every ot her weeksPt wants to follow up with Dr. Marie after dischargePlan continue on a ll current psychotropic medications Requesting case management director to confirm his a ppointment with Dr. mariebefore he discharged Please re consult if n eeded Name Value Range Interpretation Code Description Data [facility] rce(s) Supporting Document(s ) ID Date Data Source [id number] 11/03/2019 07:12:34 AM EDT [facility] Bedside and Verbal shift change report g iven to Meño Rose, RN (oncomingnurse) by June Ochoa RN (offgoing nurse). Repor t included the followinginformation SBAR, Kardex, Intake/Output, MAR, Recent Resul ts and Med Rec Status. Name Value Range Interpretation Code Description Data [facility] Supporting Document(s ) ID Date Data Source [id number] 11/02/2019 11:18:25 PM EDT [facility] Problem: Falls - Risk ofGoal: *Absence [...] Harsh Scale and appropriate interventio ns in the[facility] hospitalsheet.Outcome: Progressing Towards GoalNote: Pressure Injury [...] Name Value Range Interpretation Code Description Data [facility] Supporting Document(s ) ID Date Data Source [id number] 11/02/2019 07:34:02 PM EDT [facility] Bedside shift change report given to GILLIAN KEATING (oncoming nurse) by Meño Rose(offgoing nurse). Report included the following information SBAR, Kardex andIntake/Output. Name Value Range Interpretation Code Description Data [facility](s) Supporting Document(s ) ID Date Data Source [id number] 11/02/2019 05:14:50 PM EDT [facility] Telehealth Progress NotePursuant to the emergency [...] [] Telephone [x] VideoconferenceDate: 11/02/2019Accodarian Franny mber: [id number]: Maxwell Robin & M PROGRESS NOTE:Coordinated treatment team rounds conducted with psychiatrist, patient, nursesand/or oncology social worker present ; dis cussions held with case management director and/or familymembers; Chart reviewed in full in cluding corporate learning consultant notes, ancillary staffnotes, vitals and labs in [facility] EMR reviewed in full.SUBJECTIVE: Pt seen for first time on Video with my SW Mendy And RN , hereports less hallucinations , as they are still there in the morning But overall better since got back on vraylar told me was scheduled for ECT at [facility] but due to elective , it [...] past 8 hrs: Temp Pulse Resp BP CxL278/20 1546 98.3 F (36.8 C) 84 18 [...] (LOVENOX) injection 40 mg 40 mg SubCUTAneous [id number] Medications:C urrent Facility-Administered MedicationsMedication Dose Route Frequen [...] ENOX) injection 40 mg 40 mg SubCUTAneous M55BMWRLHLGHJM/PLAN:Continue current kalie atment as pt is stabalizingPatient [...] Supporting Document(s ) ID Date Data Source [id number] 11/02/2019 03:02:33 PM EDT [facility] General Daily Progress NoteAdmit Date: Hospital [...] (LOVENOX) injection 40 mg 40 mg SubCUTAneous H51IRkqfuwetz:Patient Vitals for the past 8 hrs: BP [...] contrast. Sagittal and coronal reconstruction was performed.Uti Assistera rim technician algorithm the examination was performed to [...] Supporting Document(s ) ID Date Data Source [id number] 11/02/2019 07:48:14 AM EDT [facility] Verbal shift change report given to Jody wells RN (oncoming nurse) by Juliane UGALDE (offgoing nurse). Report included the following information SBAR,Kardex, Intake/Output, MAR and Recent Results Name Value Range Interpretation Code Description Data Melani rce(s) Supporting Document(s ) ID Date Data Source [id number] 11/02/2019 05:41:52 AM EDT [facility] Patient AOX3 with periodic confusion. In bed watching TV. All med's given asordered by MD, tolerated well. Fall precaution m easures reinforced. Call bellwithin reach, bed in low position. Has urinal and comm ode at bedside. Voices nocomplaint at this time. Will continue to monitor pt. Name Value Range Interpretation Code Description Data Melani rce(s) Supporting Document(s ) ID Date Data Source [id number] 11/01/2019 08:46:30 PM EDT [facility] Problem: Falls - Risk ofGoal: *Absence [...] Name Value Range Interpretation Code Description Data [facility] Supporting Document(s ) ID Date Data Source [id number] 11/01/2019 08:00:09 PM EDT [facility] Verbal shift change report given to Ly vitale RN (oncoming nurse) by SUSI Palacio (offgoing nurse). Report included the following information SBAR,Intake/Output, MAR and Recent Results. Name Value Range Interpretation Code Description Data [facility] rce(s) Supporting Document(s ) ID Date Data Source [id number] 11/01/2019 03:49:42 PM EDT [facility] Adult Progress NoteDate: 11/01/2019Account Number: [id number]: Maxwell Mendieta TrimbleDiagnosis: History of mood and [...] deficiency 09/04/2019 Anxiety 0 Bipolar disorder ([facility]) 07/21/2019 Depressive disorder 07/21/2019 Status p ost gastric bypass for obesity 07/21/2019 Morbid obesity (HCC) 07/21/2019 Severe obesity ([facility]) 07/19/2018 Spells 04/08/2016 Seizure disorder ([facility]) 04/30/2014 Insom kacey 11/04/2013 H/O gastric bypass [...] Problems: Bipolar disorder with severe depression ([facility]) (10/29/2019)Psychotherapy (type and freque ncy) supportiveConsultation psychiatryMedications:Current [...] (LOVENOX) injection 40 mg 40 mg SubCUTAneous N89TUww following information was reviewed and discussed: Patient [...] Supporting Document(s ) ID Date Data Source [id number] 11/01/2019 02:42:08 PM EDT [facility] General Daily Progress NoteAdmit Date: Hospital [...] past 8 hrs: BP Temp Pulse Resp BxC21311/01/19 0715 101/67 98 F (36.7 C) 70 [...] Sagittal and coronal reconstr uction was performed.Utilizing rim technician algorithm the examination was performed to [...] Prominent interstitial markings arefelt to reflect vascular crozer operator 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 Repeat PA andlateral views the chest are advised i f there is clinical concern for pneumoniaor congestive failure.Assessment:Active Pro blems: Bipolar disorder with severe depression (HCC) (10/29/2019)Plan:Marco g status Name Value Range Interpretation Code Description Data Melani rce(s) Supporting Document(s ) ID Date Data Source [id number] 11/01/2019 07:08:12 AM EDT [facility] Verbal shift change report given to Chandrakant Albert RN (oncoming nurse) Colin Hoffmann RN (offgoing nurse). Report incl uded the following informationSBAR, Kardex, Intake/Output, MAR and Recent Results. Name Value Range Interpretation Code Description Data [facility] rce(s) Supporting Document(s ) ID Date Data Source [id number] 10/31/2019 07:59:03 PM EDT [facility] Verbal shift change report given to Shreya adrian RN (oncoming nurse) by SUSI Palacio (offgoing nurse). Report included the following information SBAR,Kardex, Intake/Output, MAR and Recent Results. Name Value Range Interpretation Code Description Data [facility](s) Supporting Document(s ) ID Date Data Source [id number] 10/31/2019 05:09:32 PM EDT [facility] Telehealth ConsultationPursuant to the e mergency [...] [] Telephone [x] VideoconferenceSubjective:Patient: Maxwell BrayMRN #: [id number]: [id number]: 49 y.o. Sex: maleAdm it Date: 10/29/2019Attending: [...] or mortal ity cardiac cath at [facility] approx 6-8 months ago Other [...] past 8 hrs: BP Temp Pulse Resp YvG077/02/11 0754 120/60 97.2 F (36.2 C) 70 20 95 %MENTA L STATUS EXAM:FINDINGS WITHIN NORMAL LIMITS (WNL) UNLESS OTHERWISE STATED BELOW:Sens orium YNYO6Zvapyugfs Well relatedAppearance: OverweightMotor Behavior: Not examined Speech: [...] Supporting Document(s ) ID Date Data Source [id number] 10/31/2019 04:37:18 PM EDT [facility] - [place] [address] [address] [place], [place] [address]NKDTGRA: MAXWELL BRAYMRN: [id number]: [id number]#: [id number] DATE: 10/29/2019 CONSULTATIONHISTORY OF PRESENT ILLNESS: The [...] Klonopin.PAST MEDICAL HISTORY: Cardiac cath at [facility] six to eight months ago, concussions,periodic [...] Jose AGUIRRE, MDDD: 10/30/2019 14:44:41/BR /[id number] / [id number] Name Value Range Interpretation Code Description Data Melani rce(s) Supporting Document(s ) ID Date Data Source [id number] 10/31/2019 01:47:36 PM EDT [facility] General Daily Progress NoteAdmit Date: Hospital [...] Supporting Document(s ) ID Date Data Source [id number] 10/31/2019 12:59:26 PM EDT [facility] physical Therapy TREATMENTPatient: Maxwell Bray (49 [...] Supporting Document(s ) ID Date Data Source [id number] 10/31/2019 07:10:46 AM EDT [facility] Bedside and Verbal shift change report g iven to Samy UGALDE (oncoming nurse)by Cristofer Valenzuela RN (offgoing nurse). Repo rt included the following information SBAR, Kardex, MARand Recent Results. Name Value Range Interpretation Code Description Data [facility] rce(s) Supporting Document(s ) ID Date Data Source [id number] 10/30/2019 11:27:14 PM EDT [facility] Problem: Falls - Risk ofGoal: *Absence [...] Supporting Document(s ) ID Date Data Source [id number] 10/30/2019 08:09:55 PM EDT [facility] Susi Garcia called as pt has [...] be ordered as non formulary also At [facility] Name Value Range Interpretation Code Description Data [facility] rce(s) Supporting Document(s ) ID Date Data Source [id number] 10/30/2019 08:06:30 PM EDT [facility] Telephoned Dr. Oc tompkins pt's c/o new sy mptoms of hallucinations. Orderedreceived, relayed to RN, SUSI Marroquin on mold shifter Name Value Range Interpretation Code Description Data [facility] Supporting Document(s ) ID Date Data Source [id number] 10/30/2019 08:01:35 PM EDT [facility] Verbal shift change report given to Cecilia wells (oncoming nurse) by Samy Albert RN (offgoing nurse). Report included the fo llowing information SBAR, ProcedureSummary, Intake/Output, MAR and Recent Results. Name Value Range Interpretation Code Description Data [facility] Supporting Document(s ) ID Date Data Source [id number] 10/30/2019 02:58:51 PM EDT [facility] Problem: Mobility Impaired (Adult and Pe [...] of morbidity or mortality cardiac cath at [facility] approx 6-8 months ago Other [...] Home: NoneCritical Behavior:Neurologic State: AlertOrientation Level: Oriented Y6Dwqadhwyl: Appropriate for age attention/concentrationSafety/Judgement: Awareness of environmentSkin:Strength:Strength: [...] Supporting Document(s ) ID Date Data Source [id number] 10/30/2019 02:50:37 PM EDT [facility] Telehealth ConsultationPursuant to the e mergency [...] [] Telephone [] VideoconferenceSubjective:Patient: Maxwell BrayMRN #: [id number]: [id number]: 49 y.o. Sex: maleAdm it Date: 10/29/2019Attending: [...] Supporting Document(s ) ID Date Data Source [id number] 10/30/2019 02:06:26 PM EDT [facility] Care Management InterventionsPCP Verifie d by CM: YesPalliative Care Criteria Met (RRAT>21 & CHF Dx)?: NoMode of Transport at Discharge: Other (see comment)(family)Transition of Care Consu lt (CM Consult): Discharge PlanningPhysical Therapy Consult: NoOccupational Therapy Consult: NoSpeech Therapy Consult: NoCurrent Support Network: Lives with Spouse, Own Home( [place] [phone],s-[phone])Confirm Foll ow Up Transport: FamilyThe Patient and/or Patient Collection Specialist was Provided with a Choice of Providerand [...] home with his , is completely independent SAMPLE CLERK, emanuel SMYTH. Patient normally works (pre-covid) and drives. CM dept roleexplained, patient is currently denying any HC or rehab needs and states hiswife will drive him home upon DC. PT eval is ordered and pending. CM dept laila lfollow if patient has any PT needs.CASE MANAGEMENT PSYCHOSOCIAL ASSESSMENTMaxwell Bray Admission Date: 10/29/2019MRN: [id number] of : 1970Current date: 10/30/2019DISCHARGE PLAN: homePatient Info rmation:Patients Preferred Name: brianPatient Arrived Via: StretcherTransferred from a [facility] facility: NoInformation Obtained From: PatientPatient Objects to Receiving Bloo d: NoMRSA Assessment: Not applicableAuditory Impairment: NoneRetired Read Only-Readmi t Risk ToolSupport Systems: Family member(s)History of Falls Within Past 3 Months: NoNeeds Assistance with Wound Care AND/OR Mgnt of O2, Nebulizer: NoRequires Financial, Physical and/or Educational Assistance With Medications: NoHistory o f Mental Illness: NoLiving Alone: NoPCP: Ritika Canas MDAdmitting Provider: Cristi Canas MDCHESAPEAKE REGIONAL [facility] INCHCO[facility] SAMPLE CLERK: naPayor: Payor: [facility] HE[facility] / Plan: [facility] /Product Type: HMO /Seco ndary [...] solving and planning: Notes:Adeq uate coping skills: Notes:Mandaeism/Cultural barriers: Notes:If unable to assess or n [...] Supporting Document(s ) ID Date Data Source [id number] 10/30/2019 12:38:13 PM EDT [facility] General Daily Progress NoteAdmit Date: Hospital day: .tdSubjective:Patient markedly improved this am, speech now no rmal. Denies possibleinadvertent overdose of chronic meds. Accepting of psych consult . PT toevaluate. Claims symptoms of mild nausea. Meds reviewed claims to be takin gElavil G 150 mg HS ,Klonopin 1 mg twice a day, [place] 300 twice daily, Vraylar3 m g dailyCurrent [...] past 8 hrs: BP Temp Pulse Resp ZpH45210/30/19 0727 (!) 130/96 98 F (36.7 C) [...] Name Value Range Interpretation Code Description Data [facility] rce(s) Supporting Document(s ) ID Date Data Source [id number] 10/30/2019 07:52:05 AM EDT [facility] Verbal shift change report given to Chandrakant rosa RN (oncoming nurse) Tavares UGALDE (offgoing nurse). Report included the [facility] information SBAR,Kardex, Procedure Summary, Intake/Output, MAR and Recent R esults. Name Value Range Interpretation Code Description Data [facility] rce(s) Supporting Document(s ) ID Date Data Source [id number] 10/30/2019 06:40:05 AM EDT [facility] Pt. AOX3, periodic confusion. Commode an d urinal at bedside. Seizure and fallprecaution measures in place. Voice s no complaint during shift . Name Value Range Interpretation Code Description Data [facility] rce(s) Supporting Document(s ) ID Date Data Source [id number] 10/30/2019 07:29:12 AM EDT [facility] Name Value Range Interpretation Description Data [...] or Hospital Plasma ID Date Data Source [id number] 10/30/2019 07:05:07 AM EDT [facility] - [facility] Name Value Range Interpretation Description Data Sup porting Code Source(s) Document(s ) Leukocytes 4.8 K/uL 4.8-10.6 [facility] - [#/volume] in Good Blood by [facility] Automated count [facility] Erythrocytes 4.59 4.70-6.0 Below low normal [facility] - [#/volume] in M/uL 0 Good Blood by [facility] Automated count [facility] Hemoglobin 14.0 14.0-18. [facility] - [Mass/volume] in g/dL 0 Good Blood [facility] Hematocrit 42.7 % 42.0-52. [facility] - [...] [Ratio] by [facility] Automated count Hospital Platelets 159 K/uL 130-400 [facility] - [#/volume] in Good Blood by [facility] Automated count Hospital Platelet mean 8.6 FL 9.2-11.8 Below low normal [facility] - volume [Entitic Good volume] in Blood [facility] count Nucleated 0.0 PER 0 [facility] - erythrocytes/100 100 WBC Good leukocytes [facility] [Ratio] in Blood [facility] Nucleated 0.00 0.0-0.01 [facility] - erythrocytes K/uL Good [#/volume] in [facility] Segmented 54 % 48.0-72. [facility] - neutrophils/100 [address] [facility] Lymphocytes/100 32 % 18.0-40. [facility] - leukocytes in 0 [facility] Blood [facility] Monocytes/100 9 % 2.0-12.0 [facility] - leukocytes in [facility] Eosinophils/100 5 % 0.0-7.0 [facility] - leukocytes in [facility] Basophils/100 1 % 0.0-3.0 [facility] - leukocytes in [facility] Immature 0 % 0-0.5 [facility] - granulocytes/100 Good leukocytes in [facility] Hospital Automated count Segmented 2.6 K/UL 2.3-7.6 [facility] - neutrophils Good [#/volume] in [facility] Lymphocytes 1.5 K/UL 0.9-4.2 [facility] - [#/volume] in [facility] Monocytes 0.4 K/UL 0.1-1.7 [facility] - [#/volume] in [facility] Eosinophils 0.2 K/UL 0.0-1.0 [facility] - [#/volume] in [facility] Basophils 0.0 K/UL 0.0-0.4 [facility] - [#/volume] in [facility] Immature 0.0 K/UL 0.0-0.17 [facility] - granulocytes Good [#/volume] in [facility] Blood by [facility] Automated count Differential [facility] - cell count [facility] method - Blood [facility] ID Date Data Source [id number] 10/29/2019 07:40:21 PM EDT BSS [facility] Verbal shift change report given to Wai rogers RN(oncoming nurse) by Elizabeth Meehan RN (offgoing nurse). Report included the fo llowing information SBAR, Kardex, EDSummary, Intake/Output, MAR and Recent Results. Name Value Range Interpretation Code Description Data Melani rce(s) Supporting Document(s ) ID Date Data Source [id number] 10/30/2019 06:54:22 PM EDT [facility] Name Value Range Interpretation Description Data Sup porting Code Source(s) Document(s ) Color of Urine YEL [facility] - [facility] Appearance of CLEAR [facility] - Urine [facility] Specific gravity 1.015 1.003-1. [facility] - of Urine by 030 Good Refractometry [facility] pH of Urine by 6.0 4.6-8.0 [facility] - Test strip [facility] Protein NEG [facility] - [Mass/volume] in Good Urine by Test [facility] Glucose NEG [facility] - [Mass/volume] in Good Urine by [facility] Automated test [facility] strip Ketones NEG [facility] - [Presence] in Good Urine by [facility] Automated test [facility] strip Bilirubin.total NEG [facility] - [Presence] in Good Urine [facility] Hemoglobin NEG [facility] - [Presence] in Good Urine by [facility] Urobilinogen 1.0 0.2-1.0 [facility] - [Presence] in EU/dL Good Urine by [facility] Automated test Hospital strip Nitrite NEG [facility] - [Presence] in Good Urine by [facility] Automated test [facility] strip Leukocyte NEG [facility] - esterase Good [Presence] in [facility] Urine by Hospital Automated test strip ID Date Data Source [id number] 10/29/2019 06:14:12 PM EDT [facility] Spoke with to clarify meds..correct doses obtained Name Value Range Interpretation Code Description Data Melani rce(s) Supporting Document(s ) ID Date Data Source [id number] 10/29/2019 06:01:22 PM EDT [facility] Pt unsure of dose of Vraylar will call w berta Name Value Range Interpretation Code Description Data Melani rce(s) Supporting Document(s ) ID Date Data Source [id number] 10/29/2019 03:56:40 PM EDT [facility] [id number] [email or web address].in [facility] [place] [facility] [address] [place] [address] [phone]/12/12 Maxwell Bray (Male) [id number] ES I 2 ED Dispo:ADMIT Chief Complaint: Dysarthria, Lethargy Diagnosis: Altered mental status, unspecified altered mental statu s type [] Bipolar disorder with severe depression (HCC) [] Current Providers: Att ending: Cole Ernandez; Cristi Canas Consulting Provider: Cristi Canas Primary Nurse: Kristy Moss Tech: HERMANN GonzalesN: [phone] [employer] [phone] - Bs hsi [employer] MrnMRN: [id number] [employer] [phone] - [facility]sh[facility] [employer] Age Sex 1970 AGE 49 SEX Male Primary Care Provider: Ritika Canas MD Hnfqihixf: (No Kn own Allergies)Date Reviewed: 10/29/2019Reviewed by: Ritika Canas MD - Review CompleteED Provider Notes: [facility] ID: [id number]: Cristobal Ernandez MDService: -Author Type: PhysicianFiled: 10/29/19 [...] morbidity or mortality cardiac cath at [facility] approx 6-8 months ago Other [...] QTC Calculation (Bezet) 446 ms Calculated P [place] 53 degrees Calc ulated R [place] 68 degrees Calculated T [place] 0 degrees Diagnosis Sinus tachycardiaProlonged WI intervalNo nspecific intraventricular conduction delayCBC WITH AUTOMATED [...] Time: 10/29/19 10:45 AMResult Value Ref Range [place] level <0.20 (L) 0.6 - 1.2 MMOL/L [...] contrast. Sagittal and coronalreconstruction was performed. Utilizing rim technician algorithm theexaminationwas performed to optimize imaging [...] status, unspecified altered menta l status type [id number] condition at time of disposition: StableI have [...] d thediagnostic studies, unless otherwise noted.+ED Orders [id number] CBC WITH AUTOMATED DIFF [# [id number]] Priority: STAT Class: ER Collect Standing Order Information Remaining Occurrences:0 /1 Interval:ONE TIME Last released:10/29/2019 Released orders: SunOctober 29, 2019 11:02 AM by: CRISTOBAL ERNANDEZ [id number] METABOLIC PANEL, COMPREHENSIVE [#[id number]] Bridgette ority: STAT Class: ER Collect Standing Order Information Remaining Occurrences:0/1 Inter haile:ONE TIME Last released:10/29/2019 Released orders: SunOctober 29, 2019 11:02 AM by: CRISTOBAL WADE [id number] PROTHROMBIN TIME + INR [#[id number]] Priority: STAT Class: E R Collect Standing Order Information Remaining Occurrences:0/1 Interval:ONE TI ME Last released:10/29/2019 Released orders: SunOctober 29, 2019 11:02 AM by: BRIE ERNANDEZ EN [id number] PTT [#[id number]] Priority: STAT Class: ER Collect Speci men Source: Blood Standing Order Information Remaining Occurrences:0/1 Interval:ONE TI ME Last released:10/29/2019 Released orders: SunOctober 29, 2019 11:02 AM by: BRIE ERNANDEZ [id number] URINALYSIS W/ RFLX MICROSCOPIC [#[id number]] Priority: STAT Class: ER Collect Sta nding Order Information Remaining Occurrences:0/1 Interval:ONE TIME Last released:0 10/29/2019 Released orders: SunOctober 29, 2019 11:02 AM by: CRISTOBAL ERNANDEZ [id number] LITHIUM [#[id number]] Priority: STAT Class: ER Collect Standing Order Information Remaining Occurrences:0/1 Interval:ONE TIME Last released:10/29/2019 Released orders : SunOctober 29, 2019 11:02 AM by: CRISTOBAL ERNANDEZ [id number] CBC WITH AUTOMATED DIFF [# [id number]] Priority: STAT Class: ER Collect Specimen Source: Whole Blood Specimen Collected: 020 10:45 AM Resulting Agency: [facility] Test ID: [id number] Released on: 0 11:02 AM [id number] METABOLIC PANEL, COMPREHENSIVE [#[id number]] Priority: STAT Class: E R Collect Specimen Source: Plasma Specimen Collected: 10/29/2019 10:45 AM Resulting Agency: [facility] Test ID: MPL Released on: 10/29/2019 11:02 AM [id number] PROTHROMBIN TIME + IN R [#[id number]] Priority: STAT Class: ER Collect Specimen Source: Plasma Specimen Collec hyun: 10/29/2019 10:45 AM Resulting Agency: [facility] Test ID: APTHR Released o n: 10/29/2019 11:02 AM [id number] PTT [#[id number]] Priority: STAT Class: ER Collect Specimen Source: Plasma Specimen Collected: 10/29/2019 10:45 AM Resulting Agency: [facility] Test ID: APTT Released on: 10/29/2019 11:02 AM [id number] URINALYSIS W/ RFLX CT CROSCOPIC [#[id number]] Priority: STAT Class: ER Collect Resulting Agency: [facility] Test ID: UA Released on: 10/29/2019 11:02 AM [id number] LITHIUM [#[id number]] Priority: STAT Class: ER Collect Specimen Source: Serum Specimen Collected: 10/28 10:45 AM Resulting Agency: [facility] Test ID: LI Released on: 10/29/2019 11:02 AM [id number] CBC WITH AUTOMATED DIFF [#[id number]] Priority: STAT Class: E R Collect Standing Order Information Remaining Occurrences:06/25 Interval:TOMORR OW AM [id number] METABOLIC PANEL, BASIC [#[id number]] Priority: STAT Class: ER Collect St anding Order Information Remaining Occurrences:06/25 Interval:TOMORROW AM [id number] CT HEAD W O CONT [#[id number]] Priority: Routine Class: Hospital Performed Standing Or mariano Information Remaining Occurrences:0/1 Interval:ONE TIME Last released:10/29/2019 Released orders: SunOctober 29, 2019 11:02 AM by: CRISTOBAL ERNANDEZ Reason for Exam -> ams IMG 2590 XR CHEST PORT [#[id number]] Priority: STAT Class: Hospital Performe d Standing Order Information Remaining Occurrences:0/1 Interval:ONE TIME Last release d:10/29/2019 Released orders: SunOctober 29, 2019 11:02 AM by: CRISTOBAL ERNANDEZ Reason for Exam -> ams [id number] CT HEAD WO CONT [#[id number]] Priority: STAT Class: Hospital Perfo rmed Specimen Collected: 10/29/2019 11:54 AM Resulting Agency: [facility] Test ID: [id number] [place] son for Exam -> ams Released on: 10/29/2019 11:02 AM [id number] XR CHEST PORT [#[id number]] Priority: STAT Class: Hospital Performed Specimen Collected: 10/29/2019 12:16 PM Resultin g Agency: [facility] Test ID: [id number] Reason for Exam -> ams Released on: 10/29/2019 11:02 AM [id number] EKG, 12 LEAD, INITIAL [#[id number]] Priority: STAT Class: Hospital Performe d Standing Order Information Remaining Occurrences:0/1 Interval:ONE TIME Last release d:10/29/2019 Released orders: SunOctober 29, 2019 11:02 AM by: CRISTOBAL ERNANDEZ Reason for Exam : -> chest pain [id number] EKG, 12 LEAD, INITIAL [#[id number]] Priority: STAT Class: H ospital Performed Resulting Agency: [facility] Test ID: [id number] Reason for Exam: -> chest pain Releas ed on: 10/29/2019 11:02 AM [id number] POC GLUCOSE [#[id number]] Priority: STAT Cl ass: Hospital Performed Standing Order Information Remaining Occurrences:0/1 Interval:ONE TI ME Last released:10/29/2019 Released orders: SunOctober 29, 2019 11:02 AM by: BRIE ERNANDEZ EN [id number] POC GLUCOSE [#[id number]] Priority: STAT Class: Hospital Performe d Released on: 10/29/2019 11:02 AM [id number] VITAL SIGNS PER UNIT ROUTINE [#[id number]] Priorit y: STAT Class: Hospital Performed Standing Order Information Remaining Occurrences:0/1 Inte rval:CONTINUOUS Last released:10/29/2019 Released orders: SunOctober 29, 2019 2:54 PM by: RITIKA CANAS Comment:More frequently if Indicated. [id number] BEDREST, COMPLETE [#[id number]] Priority: STAT Class: Hospital Performed Standing Order Information Remainin g Occurrences:0/1 Interval:CONTINUOUS Last released:10/29/2019 Released orders : SunOctober 29, 2019 2:54 PM by: RITIKA CANAS [id number] NOTIFY PROVIDER: VITAL SIGNS CHANGES [# [id number]] Priority: STAT Class: Hospital Performed Standing Order [...] Less than 120 ml in 4 hours [id number] APPLY/MAINTAIN SEQUENTIAL COMPRESSIO* [#[id number]] Priority: ST AT Class: Hospital Performed Standing Order Information Remaining Occurrences:0/1 Inter haile:CONTINUOUS Last released:10/29/2019 Released orders: SunOctober 29, 2019 2:54 PM by: RITIKA CANAS [id number] VITAL SIGNS PER UNIT ROUTINE [#[id number]] Priority: STAT Class: H ospital Performed Comment:More frequently if Indicated. Released on: 10/29/2019 2:54 PM [id number] 4 BEDREST, COMPLETE [#[id number]] Priority: STAT Class: Hospital Performed Relea sed on: 10/29/2019 2:54 PM [id number] NOTIFY PROVIDER: VITAL SIGNS CHANGES [#[id number]] Priority: STAT Class: Hospital Performed Temp -> [...] carmen rs Released on: 10/29/2019 2:54 PM [id number] APPLY/MAINTAIN SEQUENTIAL COMPRESSIO* [#[id number]] P riority: STAT Class: Hospital Performed Released on: 10/29/2019 2:54 PM SODIUM CHLORIDE 0.9 % IJ SYRG [#[id number]] Priority: STAT Class: Normal SODIUM CHLORIDE 0.9 % IJ SYRG [#[id number]] Priority: STAT Class: Normal ACETAMINOPHEN 325 MG TABLET [# [id number]] Priority: STAT Class: Normal ENOXAPARIN 40 MG/0.4 ML SUB-Q SYRINGE [#[id number]] Priority: STAT Class: Normal SODIUM CHLORIDE 0.9 % IV [#[id number]] Priority: STAT Class: Normal [id number] GLUCOSE, POC [#[id number]] Priority: Routine Class : ER Collect Resulting Agency: [facility] Test ID: BGG Standing Order Informati on Remaining Occurrences:0/1 Released orders: SunOctober 29, 2019 11:26 AM by: Automatic B [facility] Process [id number] GLUCOSE, POC [#[id number]] Priority: Routine Class : ER Collect Specimen Source: Whole Blood Specimen Collected: 10/29/2019 11:26 AM Resulting Agency: [facility] Test ID: BGG Released on: 10/29/2019 11:26 AM [id number] IP CONSULT TO PRIMARY CARE PROVIDER [#[id number]] Priority: STAT Class: Hospital Performed Standing Order Inf ormation Remaining Occurrences:0/1 Interval:ONE TIME Last released:10/29/2019 Relea sed orders: SunOctober 29, 2019 12:59 PM by: CRISTOBAL ERNANDEZ Reason for Consult: -> admit Did you call or speak to the consulting provider? -> No Consult To -> dr canas [id number] IP CONSULT TO [facility] PROVIDER [#[id number]] Priority: STAT Class: Hospital Performed Reason for Consult: -> ad rei Did you call or speak to the consulting provider? -> No Consult To -> dr canas Released on: 12:59 PM CON53 IP CONSULT TO PSYCHIATRY [#[id number]] Priority: STAT Class: H ospital Performed Standing [...] -> TODAY CON53 IP CONSULT TO PSYCHIATRY [#[id number]] Priority: STAT Class: Hospital Performed Reason for Consult: -> 49 yo male with severe bipolar diseas e, admitted with slurred speech, severe weakness Did you call or speak to t he consulting provider? -> No Consult To -> Dr Aguirre Schedule When? -> TODAY Released on: 10/29/2019 2:54 PM [id number] INITIAL PHYSICIAN ORDER: INPATIENT [#[id number]] Priority: Routine Class : ADT Pend Transfer [...] CANSA Estimated Length of Stay -> 3-4 [facility] Discharge Plan: -> Home with Office Follow-up [id number] INITIAL PHYSICIAN ORDER: INPATIENT [# [id number]] Priority: Routine Class: ADT Pend Transfer Status: [...] Foll ow-up Released on: 10/29/2019 2:43 PM [id number] INITIAL PHYSICIAN ORDER: INPATIENT [#[id number]] Priority: Routine Class: ADT Pend Transfer [...] 3-4 Midnights Discharge Plan: -> Other (Specify) [id number] INITIAL PHYSIC JOSE ORDER: INPATIENT [#[id number]] Priority: Routine Class: ADT Pend Transfer Status: [...] 2:54 PM IVT3 INSERT PERIPHERAL IV [# [id number]] Priority: STAT Class: Hospital Performed Standing Order Information Remaining Occurre nces:0/1 Interval:ONE TIME Last released:10/29/2019 Released orders: SunOctober 28, 020 2:54 PM by: RITIKA CANAS IVT3 INSERT PERIPHERAL IV [#[id number]] Priority: ST AT Class: Hospital Performed Released on: 10/29/2019 2:54 PM CON75 IP CONSULT TO PHYSICAL THERAPY [#[id number]] Priority: STAT Class: Hospital Performed Standing Order Information Remainin g Occurrences:14 Interval:DAILY Last released:10/29/2019 Released orders : SunOctober 29, 2019 2:54 PM by: RITIKA CANAS CON75 IP CONSULT TO PHYSICAL THERAPY [#[id number]] Priority: STAT Class: Hospital Performed Released on: 10/29/2019 2:54 PM COD2 FULL CODE [#[id number]] Priority: STAT Class: Hospital Performed Standing Order Inf ormation Remaining Occurrences:0/1 Interval:CONTINUOUS Last released:10/29/2019 Rel eased orders: SunOctober 29, 2019 2:54 PM by: RITIKA CANAS COD2 FULL CODE [#[id number]] Priority: STAT Class: Hospital Performed Released on: 10/29/2019 2:54 PM [id number] 4 DIET FULL LIQUID [#[id number]] Priority: STAT Class: Hospital Performed Stand ing Order Information Remaining Occurrences:0/1 Interval:DIET EFFECTIVE NOW Last released:10/29/2019 Released orders: SunOctober 29, 2019 2:54 PM by: RITIKA CANAS Comment:A dvance as tolerated to regular diet [id number] DIET FULL LIQUID [#[id number]] Priority: STAT Class: Hospital Performed Comment:Advance as tolerated to regular diet Released on: 10/29/2019 2:54 Maxwell Corona MR#: [id number] * Rm: 416-02Ht: 5' 7" Wt: 3 00 lb Code: Full Code Iso:Diagnosis:Bipolar disorder with severe depression (HCC) [F31.4]Allergies : No Known Allergies -------- Current as of: 10/29/19 1556 ---aspirin (ASPIRIN) tablet 325 mg #[id number] Admin Amount: 1 Tab (1 x 325 mg Tab) Ordered Dose: 325 mg Route: Oral Freq: ONCE Start Date: 12/24/13 No administration times (back 96 hours, ahead 96 hours). ------diphenhydrAMINE (BENADRYL) capsule 50 mg #[id number] Admin Amount: 1 Cap (1 x 50 mg Cap) Ordered Dose: 50 mg [place]: Oral Freq: NOW Start Date: 12/24/13 No administration times (back 96 hours, ahe ad 96 hours). ------diazepam (VALIUM) tablet 5 mg #[id number] Admin Amount: 1 Tab (1 x 5 mg Tab) Ordered Dose: 5 mg Route: Ora l Freq: ONCE Start Date: 12/24/13 No administration times (back 96 hours, e ad 96 hours). ------lidocaine (XYLOCAINE) 10 mg/mL (1 %) injection 1-30 mL #[id number] Admin Amount: 1-30 mL Ordered Dose: 1-30 mL Route: IntraDERMal Freq: ONC E Start Date: 12/24/13 No administration times (back 96 hours, ahead 96 hours). ------heparin (PF) 2 units/ml in NS infusion 2,000 Units #[id number] Admin Amount: 1,000 mL = 2,000 Units of 2 Units/mL Ordered Dose: 1,000 mL Route: Irrigation Freq: ONCE Start Date: 12/24/13 No administration times (b ack 96 hours, ahead 96 hours). ------heparinized saline 2 units/mL infusion 1,000 Units #[id number] Admin Amount: 500 mL = 1,000 Units of 2 Units/mL Ordered Dose: 500 mL R oute: IntraarTERial Freq: ONCE Start Date: 12/24/13 No administration times (back 96 hours, ahead 96 hours). ------0.9% sodium chloride infusion #[id number] Ordered Dose: 75 mL/hr Route: IntraVENous Freq: CONTINUOUS Start Date: 12/24/13 Rate: 75 mL/hr Duration: No administration times (back 96 hours, ahead 96 hours). ------ioversol (OPTIRAY) 320 mg iodine/mL contrast injection 1-100 mL #[id number] Admin Amount: 1-100 mL Ordered Dose: 1-100 mL Route: IntraVENous Freq: RAD ONCE Start Date: 12/24/13 No administration times (back 96 hours, ahead 96 hours).Maxwell Bray MR#: [id number] * Rm: 416-02Ht: 5' 7" Wt: 300 lb Code: Full Code Iso:Diagnosis:Bipolar disorder with severe depression ([facility]) [F31.4]Allergies: No Kn own Allergies -------- Current as of: 10/29/19 1556 ---gadobutrol (GADAVIST) contrast solution 1-10 mL #[id number] Admin Amount: 1-10 mL Ordered Dose: 1-10 mL Route: IntraVENo us Freq: RAD ONCE Start Date: 01/13/14 No administration times (back 96 hours, ahe ad 96 hours). ------sodium chloride (NS) flush 5-10 mL #[id number] Admin Amount: 5-10 mL Ordered Dose: 5-10 mL Route: IntraVENous Freq: RA D ONCE Start Date: 01/13/14 No administration times (back 96 hours, ahead 96 hours). ------sodium chloride (NS) 0.9 % flush #[id number] Ordered Dose: Route: Freq: Start D ate: 01/13/14 No administration times (back 96 hours, ahead 96 hours). ------morphine injection 2 mg #[id number] Admin Amount: 1 mL = 2 mg of 2 mg/mL Ordered Dose: 2 mg Route: Int raVENous Freq: NOW Start Date: 03/13/15 No administration times (back 96 hours, ahe ad 96 hours). ------influenza vaccine (4 yr+)(PF) (FLUCELVAX QUAD) inj ection 0.5*#[id number] Admin Amount: 0.5 mL Ordered Dose: 0.5 mL Route: IntraMUSCular Freq : PRIOR TO DISCHARGE Start Date: 03/30/16 No administration times (back 96 hours, ahead 96 hours). ------oxyCODONE-acetaminophe n (PERCOCET) 5-325 mg per tablet 1 Tab #[id number] Admin Amount: 1 Tab Ordered Dose: 1 Tab Route: Oral Freq: NOW Start Date: 09/07/17 No administration times (back 96 hours, ahead 96 hours). ------barium sulfate (READICAT) 2.1 % (w/v), 2.0 % (w /w) oral suspension 9*#[id number] Admin Amount: 900 mL Ordered Dose: 900 mL Route: Ora l Freq: RAD ONCE Start Date: 10/15/17 No administration times (back 96 hours, e ad 96 hours). ------iopamidol (ISOVUE 300) 61 % contrast injection 100 mL #[id number] Admin Amount: 100 mL Ordered Dose: 100 mL Route: IntraVENous Freq: RAD O NCE Start Date: 10/15/17 No administration times (back 96 hours, ahead 96 hours).Maxwell Bray MR#: [id number] * Rm: 416-02Ht: 5' 7" Wt: 300 lb Cod e: Full Code Iso:Diagnosis:Bipolar disorder with severe depression (HCC) [F31.4]Allergies: No Kn own Allergies -------- Current as of: 10/29/19 1556 ---risperiDONE (RisperDAL m-tabs) disintegrating tablet 1 mg #[id number] Admin Amount: 1 Tab (1 x 1 mg Tab) Ordered Dose: 1 mg [place]: Oral Freq: ONCE Start Date: 12/24/17 No administration times (back 96 hours, e ad 96 hours). ------ALPRAZolam (XANAX) tablet 2 mg #[id number] Admin Amount: 4 Tab (4 x 0.5 mg Tab) Ordered Dose: 2 mg Route: Ora l Freq: NOW Start Date: 12/24/17 No administration times (back 96 hours, e ad 96 hours). ------lamoTRIgine (LaMICtal) tablet 100 mg #[id number] Admin Amount: 1 Tab (1 x 100 mg Tab) Ordered Dose: 100 mg Route: Ora l Freq: ONCE Start Date: 12/24/17 No administration times (back 96 hours, e ad 96 hours). ------OLANZapine (ZyPREXA zydis) disintegrating tablet 5 mg #[id number] Admin Amount: 1 Tab (1 x 5 mg Tab) Ordered Dose: 5 mg Route: Ora l Freq: ONCE Start Date: 12/25/17 No administration times (back 96 hours, e ad 96 hours). ------LORazepam (ATIVAN) tablet 2 mg #[id number] Admin Amount: 4 Tab (4 x 0.5 mg Tab) Ordered Dose: 2 mg Route: Ora l Freq: NOW Start Date: 12/25/17 No administration times (back 96 hours, ahe ad 96 hours). ------LORazepam (ATIVAN) injection 1 mg #[id number] Admin Amount: 0.5 mL = 1 mg of 2 mg/mL Ordered Dose: 1 mg [place]: IntraVENous Freq: NOW Start Date: 12/25/17 No administration times (back 96 hours, ahead 96 hours). ------barium sulfate (EZ PAQUE) 96 % (w/w) contrast suspension 17 6 g #[id number] Admin Amount: 176 g Ordered Dose: 176 g Route: Oral Freq: RAD ONCE Start Date: 08/02/18 No administration times (back 96 hours, ahead 96 hours). ------barium sulfate (EZ PAQUE) 96 % (w/w) contrast suspension 17 6 g #[id number] Admin Amount: 176 g Ordered Dose: 176 g Route: Oral Freq: RAD ONCE Start Date: 08/02/18 No administration times (back 96 hours, ahead 96 hours).Maxwell Bray MR#: [id number] * Rm: 416-02Ht: 5' 7" Wt: 300 lb Code: Full Co de Iso:Diagnosis:Bipolar disorder with severe depression ([facility]) [F31.4]Allergies: No Known Allergies -------- Current as of: 10/29/19 1556 ---aspirin chewable tablet 162 mg #[id number] Admin Amount: 2 Tab (2 x 81 mg Tab) Ordered Dose: 162 mg Route: Ora l Freq: NOW Start Date: 08/10/19 No administration times (back 96 hours, ahe ad 96 hours). ------0.9% sodium chloride infusion 1,000 mL #[id number] Admin Amount: 1,000 mL Ordered Dose: 1,000 mL Route: IntraVENous Freq: O NCE Start Date: 08/16/19 Rate: 1,000 mL/hr Duration: No administratio n times (back 96 hours, ahead 96 hours). ------methylPREDNISolone (PF) (Solu-MEDROL) injection 125 mg #[id number] Admin Amount: 2 mL = 125 mg of 125 mg/2 mL Ordered Dose: 125 mg [place]: IntraVENous Freq: NOW Start Date: 08/16/19 No administration times (back 9 6 hours, ahead 96 hours). ------aspirin chewable tablet 162 mg #[id number] Admin Amount: 2 Tab (2 x 81 mg Tab) Ordered Dose: 162 mg Route: Ora l Freq: NOW Start Date: 08/16/19 No administration times (back 96 hours, e ad 96 hours). ------sodium chloride (NS) flush 5-40 mL #[id number] Admin Amount: 5-40 mL Ordered Dose: 5-40 mL Route: IntraVENous Freq: RONA HERNANDEZY 8 HOURS Start Date: 10/29/19 Administration times (back 96 hours, ahead 96 hours): : 1400 2200 10/30/19: 06 1400 219910/31/19: 599 1400 219911/01/19: 599 1400 219911/02/19: 599 1400 ---sodium chloride (NS) flush 5-40 mL #[id number] Admin Amount: 5-40 mL Ordered Dose: 5-40 mL Route: IntraVENous Freq: NEEDED Start Date: 10/29/19 No administration times (back 96 hours, ahead 96 hours). ------acetaminophen (TYLENOL) tablet 650 mg #[id number] Admin Amount: 2 Tab (2 x 325 mg Tab) Ordered Dose: 650 mg [place]: Oral Freq: EVERY 4 HOURS NEEDED Start Date: 10/29/19 No administration times (back 96 hours, ahe ad 96 hours).Maxwell Bray MR#: [id number] * Rm: [id number]: 5' 7" Wt: 3 00 lb Code: Full Code Iso:Diagnosis:Bipolar disorder with severe depression (HCC) [F31.4]Allergies : No Known Allergies -------- Current as of: 10/29/19 1556 ---enoxaparin (LOVENOX) injection 40 mg #[id number] Admin Amount: 0.4 mL = 40 mg of 40 mg/0.4 mL Ordered Dose: 40 mg Route: SubCUTAneous Freq: EVERY 24 HOURS Start Date: 10/29/19 Administration times (back 96 hours, ahead 96 hours): 10/29/19: 14510/30/19: 145410/31/19: 145411/01/19: 145411/02/19 : 1454 ---0.9% sodium chloride infusion #[id number] Ordered Dose: 100 mL/hr Route: IntraVENous Freq: [...] Supporting Document(s ) ID Date Data Source [id number] 10/29/2019 03:54:13 PM EDT [facility] History & PhysicalBrian Anam Bray is [...] morbidity or mortality cardiac cath at [facility] approx 6-8 months ag o Other [...] two (2) times daily asneeded. Other, Phys, Msiti Known AllergiesRevie w of Systems: Unreliable due [...] trast. Sagittal and coronal reconstruction was performed.Utilizing rim technician alg orithm the examination was performed [...] QTC Calculation (Bezet) 446 ms Calculated P [place] 53 degrees Calculat ed R [place] 68 degrees Calculated T [place] 0 degrees Diagnosis Sinus tachycardiaProl onged WI intervalNonspecific intraventricular conduction delayCBC WITH AUTOMATED DIFF [...] lydia: 10/29/19 10:45 AMResult Value Ref Range [place] level <0.20 (L) 0.6 - 1.2 MMOL/L GLUCOSE, POC Collection Time: 10/29/19 11:26 AMResult Value Ref Range Glucose, bedsid e 102 65 - 110 MG/DLAll lab results for the last 24 hours reviewed.Assessment/PlanAc tive Problems: Bipolar disorder with severe depression (HCC) (10/29/2019) possible valentina dvertentoverdoseGeorge MD Corey Name Value Range Interpretation Code Description Data Melani rce(s) Supporting Document(s ) ID Date Data Source [id number] 10/29/2019 03:42:10 PM EDT [facility] TRANSFER - OUT REPORT:Verbal report give [...] Supporting Document(s ) ID Date Data Source [id number] 10/29/2019 02:28:59 PM EDT [facility] The history is provided by the [...] or mortal ity cardiac cath at [facility] approx 6-8 months ago Other [...] QTC Calculation (Bezet) 446 ms Calculated P [place] 53 degr ees Calculated R [place] 68 degrees Calculated T [place] 0 degrees Diagnosis Sinus tachycar diaProlonged WI intervalNonspecific intraventricular conduction delayCBC WIT H AUTOMATED [...] lydia: 10/29/19 10:45 AMResult Value Ref Range [place] level <0.20 (L) 0.6 - 1.2 MMOL/L [...] Sagittal and coronalreconstru ction was performed. Utilizing rim technician algorithm the examinationwas performed t o optimize imaging quality by utilizing the lowest possibleradiation dose.Findings: There is no evidence of intracranial hemorrhage, masses, acutecortical infarc tion, or midline shift. There are no extra-axial fluidcollections. There is no evidence of hydrocephalus.The bony calvarium shows no evidence of fracture or destructive bony process.Radiology interpretation reviewed by Cristobal Ernadnez MD<EMERGENCY DEPARTMENT CASE SUMMARY>ED Course:49 y.o. male [...] Supporting Document(s ) ID Date Data Source [id number] 10/29/2019 12:17:28 PM EDT [facility] XR CHEST PORTCLINICAL INDICATION PROVIDE D:. [...] Supporting Document(s ) ID Date Data Source [id number] 10/29/2019 11:55:57 AM EDT [facility] CT HEAD WO CONTClinical data: amsPriors: 03/13/2015.Technique: Multiple axial images were obtained from the skullbase to the vertexwithout administration of intravenous contrast. Sagittal and coronalreconstru ction was performed. Utilizing rim technician algorithm the examinationwas performed t o [...] Supporting Document(s ) ID Date Data Source [id number] 10/29/2019 11:48:34 AM EDT [facility] Name Value Range Interpretation Description Data Sup porting Code Source(s) Document(s ) Glucose 102 MG/DL 65-110 [facility] - Good [Mass/volume] [facility] in Blood by Hospital Automated test strip ID Date Data Source [id number] 10/29/2019 10:49:56 AM EDT [facility] Patient lethargic, BIBA from home for le thargy and slurred speech. Name Value Range Interpretation Code Description Data Melani rce(s) Supporting Document(s ) ID Date Data Source [id number] 10/29/2019 11:29:33 AM EDT [facility] Name Value Range Interpretation Code Description Data Supporting Source(s) Document(s ) [place] 0.6-1.2 Below low normal [facility] - Good [Moles/volum [facility] e] in Serum Hospital or Plasma ID Date Data Source [id number] 10/29/2019 11:28:52 AM EDT [facility] - [facility] Hospital [...] non- Americans (GFRNA), and normalized to 1.7 5i3iecd surface area. The physician must decide which [...] 8.5-10.1 [facility] - Good Serum or Plasma [facility] ital Bilirubin.total 0.7 mg/dL 0.2-1.0 [facility] - Good [Mass/volume] in Serum or [facility] Plasma Alanine aminotransferase 30 U/L 13-61 [facility] - Good [Enzymatic activity/volume] [facility] in Serum or Plasma Aspartate aminotransferase 27 U/L 15-37 [facility] - Good [Enzymatic activity/volume] [facility] in Serum or Plasma by With P-5'-P Alkaline phosphatase 139 U/L 45-117 Above high [facility] - Good [Enzymatic activity/volume] normal [facility] in Serum or Plasma Protein [Mass/volume] in 7.6 g/dL 6.4-8.2 [facility] - Good Serum or Plasma [facility] ital Albumin [Mass/volume] in 3.9 g/dL 3.5-4.7 [facility] - Good Serum or Plasma by [facility] ospital Bromocresol purple (BCP) dye binding method Globulin [Mass/volume] in 3.7 g/dL 1.7-4.7 [facility] - Good Serum by calculation [facility] Albumin/Globulin [Mass 1.0 0.7-2.8 [facility] - Good Ratio] in Serum or Plasma [facility] ID Date Data Source [id number] 10/29/2019 11:20:29 AM EDT [facility] Name Value Range Interpretation Description Data Sup porting Code Source(s) Document(s ) aPTT in 22.2 SEC 21.0-28. [facility] - Good Platelet poor 0 [facility] plasma by Hospital Coagulation assay Therapeutic Range = 42.0-60.0 secs ID Date Data Source [id number] 10/29/2019 11:20:29 AM EDT [facility] - [facility] Name Value Range Interpretation Description Data Sup porting Code Source(s) Document(s ) Prothrombin 10.3 sec 9.4-11.1 [facility] - Good time (PT) [facility] INR in 1.0 0.8-1.2 [facility] - Good Platelet poor [facility] plasma by Hospital Coagulation assay ID Date Data Source [id number] 10/29/2019 11:11:49 AM EDT [facility] Name Value Range Interpretation Description Data Sup porting Code Source(s) Document(s ) Leukocytes 8.1 K/uL 4.8-10.6 [facility] - [#/volume] in Good Blood by [facility] count [facility] Erythrocytes 5.52 4.70-6.0 [facility] - [#/volume] in M/uL 0 Good Blood by [facility] Hemoglobin 16.7 14.0-18. [facility] - [Mass/volume] in g/dL 0 [facility] Blood [facility] Hematocrit 51.8 % 42.0-52. [facility] - [Volume 0 Good Fraction] of [facility] Blood by Hospital Automated count Erythrocyte mean 93.8 FL 81.0-94. [facility] - corpuscular 0 Good volume [Entitic [facility] volume] by Hospital Automated count Erythrocyte mean 30.3 PG 27.0-35. [facility] - corpuscular 0 Good hemoglobin [facility]ism [Entitic mass] [facility] by Automated count Erythrocyte mean 32.2 30.7-37. [facility] - corpuscular g/dL 3 Good hemoglobin [facility] [Mass/volume] by Automated count Erythrocyte 13.2 % 11.5-14. [facility] - distribution 0 Good width [Ratio] by [facility] Platelets 193 K/uL 130-400 [facility] - [#/volume] in Good Blood by [facility] Platelet mean 8.6 FL 9.2-11.8 Below low normal [facility] - volume [Entitic Good volume] in Blood [facility] Automated Hospital count Nucleated 0.0 PER 0 [facility] - erythrocytes/100 100 WBC Good leukocytes [facility] [Ratio] in Blood Hospital Nucleated 0.00 0.0-0.01 [facility] - erythrocytes K/uL Good [#/volume] in [facility] Segmented 79 % 48.0-72. Above high normal [facility] - neutrophils/100 [address] Good leukocytes [address] [facility] Lymphocytes/100 10 % 18.0-40. Below low normal [facility] - leukocytes in 0 Good Blood [facility] Monocytes/100 8 % 2.0-12.0 [facility] - leukocytes in Good Blood [facility] Eosinophils/100 1 % 0.0-7.0 [facility] - leukocytes in [facility] Basophils/100 0 % 0.0-3.0 [facility] - leukocytes in [facility] Immature 1 % 0-0.5 Above high normal [facility] - granulocytes/100 Good leukocytes in [facility] Automated count Segmented 6.4 K/UL 2.3-7.6 [facility] - neutrophils Good [#/volume] in [facility] Lymphocytes 0.8 K/UL 0.9-4.2 Below low normal [facility] - [#/volume] in [facility] Monocytes 0.7 K/UL 0.1-1.7 [facility] - [#/volume] in [facility] Eosinophils 0.1 K/UL 0.0-1.0 [facility] - [#/volume] in [facility] Basophils 0.0 K/UL 0.0-0.4 [facility] - [#/volume] in [facility] Immature 0.1 K/UL 0.0-0.17 [facility] - granulocytes Good [#/volume] in [facility] Automated count Differential [facility] - cell count [facility] method [facility] ID Date Data Source [id number] 09/15/2019 09:44:01 AM EDT [facility] Clinical Indications/Reason For Exam: pa in.AP, [...] Supporting Document(s ) ID Date Data Source [id number] 09/15/2019 09:41:40 AM EDT [facility] THORACIC SPINE 4 views.History: Pain.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 Signing date/time: 09/15/2019 9:41 AMSigned by: CURTIS VARMA Name Value Range Interpretation Code Description Data Melani rce(s) Supporting Document(s ) ID Date Data Source [id number] 09/15/2019 09:40:53 AM EDT [facility] Clinical indications with reason for exa [...] Name Value Range Interpretation Code Description Data [facility] rce(s) Supporting Document(s ) ID Date Data Source [id number] 08/17/2019 08:25:20 AM EST [facility] History: Chest PainTechnique: Portable c hest [...] Name Value Range Interpretation Code Description Data [facility] rce(s) Supporting Document(s ) ID Date Data Source [id number] 08/16/2019 11:12:22 PM EST [facility] The history is provided by the [...] orbidity or mortality cardiac cath at [facility] approx 6-8 months ago Other [...] Calculation (Bezet) 429 ms Ca lculated P [place] 36 degrees Calculated R [place] 77 degrees Calculated T [place] -24 degrees Diagnosis Sinus tachycardiaBorderline T abnormalities, [...] Time: 08/16/19 9:00 PMResult Value Ref Range [place] level 0.21 (L) 0.6 - 1.2 MMOL/LEKG: sinus tach ycardia, rate 109Radiology:CXR: no acute findings<EMERGENCY DEPARTMENT CASE [facility] R[facility]>Impression/Differential Diagnosis: Allergic reaction allergic, drug reactio n,ACS, pulmonary embolismED Course: Patient presents short of breath and mildly tach ycardic complainingof new onset rash to face anterior chest and posterior chest.Plan: Labs, chest x-ray, EKG, troponin, d-dimer, prednisone, Pepcid, vrnjxcyqkfw08:04 PM patient verbalizes relief of symptoms rash has faded. He denies chestpain he denie s shortness of breath.Patient was advised that we cannot rule out allergic drug re action as he isrecently just restarted taking his lithium. Patient advised to discuss takinglithium with his psychiatrist as soon as possible.Patient reassessed at [facility] by me. Feels better at present, wants to go home.Patient was told to follow up with the primary doctor in 1-2 days and return [facility] ED for any worsening severe pain, [...] of disposition: stableI have reviewed the f [facility] medications:Prior to Admission medicationsMedication Sig Start [...] 36N*ENCOUNTER 08/16/2019 10:46:05 PM EST [facility] [id number] [facility] EMERGENCY DEPARTMENT [address] [facility] [address] [phone]/ Maxwell Bray (Male) [id number] ES I 3 ED Dispo:DISCHARGE Chief Complaint: Allergic Reaction Diagnosis: Allergic reaction, initial encounter [] Allergic reaction to drug, in itial encounter [] Current Providers: Attending: Javier Quezada Nurse Practitioner: Javier Ward Primary Nurse: HARINDER AcuñaN: [id number] [employer] [id number] - [facility] MrnMRN: [id number] [employer] [phone] - [facility] Age Sex 1970 AGE 49 SEX Male Primary Care Provider: Ritika Canas MD Oymlaqrzs: (No Known Allergies)Date Reviewed: 08/16/2019Reviewed by: Zahraa Prince RN - Review CompleteED Provider Notes: No not es of this type exist for this encounter.ED Orders BUPROPION XL 300 MG 24 HR TAB [#[id number]] Priority: Routine Class: Historical Med LITHIUM CARBONATE 150 MG CAP [#[id number]] Priority: Routine Class: Historical Med FAMOTIDINE 20MG + NS 10 ML IV [#[id number]] Priority: STAT Class: Normal H2RA INDICATION -> Adverse reaction/Anaphylaxis SODIUM CH LORIDE 0.9 % IV [#[id number]] Priority: STAT Class: Normal METHYLPREDNISOLONE (PF) 125 MG/2 ML * [#[id number]] Priority: STAT Class: Normal ASPIRIN 81 MG CHEWABLE TAB [# [id number]] Priority: STAT Class: Normal PREDNISONE 50 MG TAB [#[id number]] Bridgette ority: Routine Class: Normal [id number] DOCTOR NATUROPATHIC - ED ONLY [#[id number]] Priority: STAT C lass: Hospital Performed Standing Order Information Remaining Occurrences:0/1 Interval:Contin uous Last released:08/16/2019 Released orders: Sat Aug 16, 2019 9:02 PM by: Javier POLLOCK Type: -> Bedside [id number] OBTAIN OLD EKG [#[id number]] Priority: Routi ne Class: Hospital Performed Standing Order Information Remaining Occurrences:0/1 Inter haile:ONE TIME Last released:08/16/2019 Released orders: Sat Aug 16, 2019 9:02 PM by: INDIO WARD [id number] PULSE OXIMETRY CONTINUOUS [#[id number]] Priority: STAT Class: H ospital Performed Standing Order Information Remaining Occurrences:0/1 Interval:CONTIN UOUS Last released:08/16/2019 Released orders: Sat Aug 16, 2019 9:02 PM by: Javier POLLOCK [id number] DOCTOR NATUROPATHIC - ED ONLY [#[id number]] Priority: STAT Class: Hospital Perfo rmed Type: -> Bedside Released on: 08/16/2019 9:02 PM [id number] OBTAIN OLD EKG [#[id number]] Priority: STAT Class: Hospital Performed Released on: 08/16/2019 9:02 PM [id number] PULSE OXIMETRY CONTINUOUS [#[id number]] Priority: STAT Class: Hospital Performed Relea sed on: 08/16/2019 9:02 PM [id number] DIET NPO [#[id number]] Priority: STAT Cla ss: Hospital Performed Standing Order Information Remaining Occurrences:0/1 Interval:DIET E FFECTIVE NOW Last released:08/16/2019 Released orders: Sat Aug 16, 2019 9:02 PM by: INDIO WARD NPO options: -> With Meds [id number] DIET NPO [#[id number]] Priority: STAT Class: Hospital Performed NPO options: -> With Meds Released on: 08/16/2019 9:02 PM [id number] SALINE LOCK IV [#[id number]] Priority: STAT Class: Hospital Performe d Standing Order Information Remaining Occurrences:0/1 Interval:ONE TIME Last released: 08/16/2019 Released orders: Sat Aug 16, 2019 9:02 PM by: INDIO POLLOCK [id number] SALIN E LOCK IV [#[id number]] Priority: STAT Class: Hospital Performed Released on : 08/16/2019 9:02 PM [id number] METABOLIC PANEL, COMPREHENSIVE [#[id number]] Priority: STAT Class: E R Collect Standing Order Information Remaining Occurrences:0/1 Interval:ONE TIME Last r eleased:08/16/2019 Released orders: [facility] Aug 16, 2019 9:02 PM by: INDIO POLLOCK [id number] CBC WITH AUTOMATED DIFF [#[id number]] Priority: STAT Class: ER Collect Standing Order Info rmation Remaining Occurrences:0/1 Interval:ONE TIME Last released:08/16/2019 Released orders: [facility] Aug 16, 2019 9:02 PM by: INDIO POLLOCK [id number] TROPONIN I [#[id number]] Priority: STAT Class: ER Collect Standing Order Information Remaining Occurre nces:0/1 Interval:ONE TIME Last released:08/16/2019 Released orders: [facility] Aug 16 9:02 PM by: INDIO POLLOCK [id number] MAGNESIUM [#[id number]] Priorit y: STAT Class: ER Collect Standing Order Information Remaining Occurrences:0/1 Inter haile:ONE TIME Last released:08/16/2019 Released orders: [facility] Aug 16, 2019 9:02 PM by: INDIO WARD [id number] D DIMER [#[id number]] Priority: STAT Class: E R Collect Standing Order Information Remaining Occurrences:0/1 Interval:ONE TIME Last r eleased:08/16/2019 Released orders: [facility] Aug 16, 2019 9:02 PM by: INDIO POLLOCK [id number] METABOLIC PANEL, COMPREHENSIVE [#[id number]] Priority: STAT Class: ER Collect Specimen Source: Plas ma Specimen Collected: 08/16/2019 9:00 PM Resulting Agency: [facility] Test ID: MPL Released on: 08/16/2019 9:02 PM [id number] CBC WITH AUTOMATED DIFF [#[id number]] Prior ity: STAT Class: ER Collect Specimen Source: Whole Blood Specimen Collected: 08/16/2019 9:00 PM Resultin g Agency: [facility] Test ID: [id number] Released on: 08/16/2019 9:02 PM [id number] TROPONIN I [#[id number]] Priority: STAT Class: ER Collect Specimen Source : Plasma Specimen Collected: 08/16/2019 9:00 PM Resulting Agency: [facility] Test ID: TROIP Released on: 08/16/2019 9:02 PM [id number] MAGNESIUM [#[id number]] Priority: STAT Class: ER Collect Specimen Source: Plasma Specimen Collected: 08/16/2019 9:00 PM Resultin g Agency: [facility] Test ID: MGPL Released on: 08/16/2019 9:02 PM [id number] 4 D DIMER [#[id number]] Priority: STAT Class: ER Collect Specimen Source : Plasma Specimen Collected: 08/16/2019 9:00 PM Resulting Agency: [facility] Test ID: [id number] Released on: 08/16/2019 9:02 PM [id number] LITHIUM [#[id number]] Priority: STAT Class: ER Collect Standing Order Information Remaining Occurrences:0/1 Inter haile:ONE TIME Last released:08/16/2019 Released orders: Sat Aug 16, 2019 9:02 PM by: INDIO WARD [id number] LITHIUM [#[id number]] Priority: STAT Class: E R Collect Specimen Source: Serum Specimen Collected: 08/16/2019 9:00 PM Resulting Agency: [facility] Test ID: LI Released on: 08/16/2019 9:02 PM [id number] EKG, 12 LEAD, INITIAL [#[id number]] Priority: STAT Class: Hospital Performed Standing Order Information Remainin g Occurrences:0/1 Interval:ONE TIME Last released:08/16/2019 Released orders : Sat Aug 16, 2019 9:02 PM by: INDIO POLLOCK Reason for Exam: -> Chest Pain [id number] EKG, 12 LEAD, INITIAL [#[id number]] Priority: STAT Class: Hospital Performed Resulting Age ncy: GSH MUSE Test ID: [id number] Reason for Exam: -> Chest Pain Released on: 08/16/2019 9:02 PM [id number] XR CHEST PORT [#[id number]] Priority: STAT Class: Hospital Performed Stand ing Order Information Remaining Occurrences:0/1 Interval:ONE TIME Last released:0 08/16/2019 Released orders: Sat Aug 16, 2019 9:02 PM by: INDIO POLLOCK Reason for Exam -> Chest Pain [id number] XR CHEST PORT [#[id number]] Priority: STAT Class: H ospital Performed Resulting Agency: [facility] Test ID: [id number] Reason for Exam -> Chest Pain Rele ased on: 08/16/2019 9:02 Maxwell Corona MR#: [id number] * Rm: [id number] Ht: 5' 10" Wt: 280 lb Code: Prior Iso:Diagnosis:Allergies: No Known Allergies -------- Current as of: 08/16/192245 GI=Given IC=IV Complet ed NB=New Bag --aspirin (ASPIRIN) tablet 325 mg #[id number] Admin Amount: 1 Tab (1 x 325 mg Tab) Ordered Dose: 325 mg Route: Oral Freq: ONCE Start Date: 12/24/13 No administration times (back 96 hours, ahead 96 hours). ------diphenhydrAMINE (BENADRYL) capsule 50 mg #[id number] Admin Amount: 1 Cap (1 x 50 mg Cap) Ordered Dose: 50 mg Route: Ora l Freq: NOW Start Date: 12/24/13 No administration times (back 96 hours, ahe ad 96 hours). ------diazepam (VALIUM) tablet 5 mg #[id number] Admin Amount: 1 Tab (1 x 5 mg Tab) Ordered Dose: 5 mg Route: Oral Freq: ON CE Start Date: 12/24/13 No administration times (back 96 hours, ahead 96 hours). ------lidocaine (XYLOCAINE) 10 mg/mL (1 %) injection 1-30 mL #[id number] Admin Amount: 1-30 mL Ordered Dose: 1-30 mL Route: IntraDERMal Freq: ONCE Start Date: 12/24/13 No administration times (back 96 hours, ahead 96 hours). ------heparin (PF) 2 units/ml in NS infusion 2,000 Units #[id number] Admin Amount: 1,000 mL = 2,000 Units of 2 Units/mL Ordered Dose: 1,000 mL [place]: Irrigation Freq: ONCE Start Date: 12/24/13 No administration times (back 96 hours, ahead 96 hours). ------heparinized saline 2 units/mL infusion 1,000 Units #[id number] Admin Amount: 500 mL = 1,000 Units of 2 Units/mL Ordered Dose: 500 mL [place]: IntraarTERial Freq: ONCE Start Date: 12/24/13 No administration times (back 96 hours, ahead 96 hours). ------0.9% sodium chloride infusion #[id number] Ordered Dose: 75 mL/hr Route: IntraVENous Freq: CONTINUOUS Start Date: 12/24/13 Rate: 75 mL/hr Duration: No administration times (back 96 hours, ahead 96 hours). ------ioversol (OPTIRAY) 320 mg iodine/mL contrast injection 1-100 mL #[id number] Admin Amount: 1-100 mL Ordered Dose: 1-100 mL Route: IntraVENous Freq: RAD O NCE Start Date: 12/24/13 No administration times (back 96 hours, ahead 96 hours).Maxwell Bray MR#: [id number] * Rm: [id number]: 5' 10" Wt: 280 lb Co de: Prior Iso:Diagnosis:Allergies: No Known Allergies -------- Current as of: 08/16/192245 GI=Given IC=IV Complet ed NB=New Bag --gadobutrol (GADAVIST) contrast solution 1-10 mL #[id number] Admin Amount: 1-10 mL Ordered Dose: 1-10 mL Route: IntraVENous Freq: RAD O NCE Start Date: 01/13/14 No administration times (back 96 hours, ahead 96 hours). ------sodium chloride (NS) flush 5-10 mL #[id number] Admin Amount: 5-10 mL Ordered Dose: 5-10 mL Route: IntraVENous Freq: RAD ONCE Start Date: 01/13/14 No administration times (back 96 hours, ahead 96 hours). ------sodium chloride (NS) 0.9 % flush #[id number] Ordered Dose: Route: Freq: Start Date: 01/13 No administration times (back 96 hours, ahead 96 hours). ------morphine injection 2 mg #[id number] Admin Amount: 1 mL = 2 mg of 2 mg/mL Ordered Dose: 2 mg Route: IntraVENous Freq: NOW Start Date: 03/13/15 No administration times (back 96 hours, ahe ad 96 hours). ------influenza vaccine (4 yr+)(PF) (FLUCELVAX QUAD) inj ection 0.5*#[id number] Admin Amount: 0.5 mL Ordered Dose: 0.5 mL Route: IntraMUSCular Freq: PRIOR TO DISCHARGE Start Date: 03/30/16 No administration times (back 96 hours, ahead 96 hours). ------oxyCODONE-acetaminophen (PERCOCET) 5-325 mg per tablet 1 Tab #[id number] Admin Amount: 1 Tab Ordered Dose: 1 Tab Route: Oral Freq: NOW Start Date: 09/07/17 No administration times (back 96 hours, ahead 96 hours). ------barium sulfate (READICAT) 2.1 % (w/v), 2.0 % (w /w) oral suspension 9*#[id number] Admin Amount: 900 mL Ordered Dose: 900 mL Route: Oral Delgado q: RAD ONCE Start Date: 10/15/17 No administration times (back 96 hours, ahead 96 hours). ------iopamidol (ISOVUE 300) 61 % contrast injection 100 mL #[id number] Admin Amount: 100 mL Ordered Dose: 100 mL Route: IntraVENous Freq: RAD ONC E Start Date: 10/15/17 No administration times (back 96 hours, ahead 96 hours).Maxwell Bray MR#: [id number] * Rm: [id number]: 5' 10" Wt: 280 lb Code: Prior Iso:Diagnosis:Allergies: No Known Allergies -------- Current as of: 08/16/192245 GI=Given IC=IV Complet ed NB=New Bag --risperiDONE (RisperDAL m-tabs) disintegrating tablet 1 mg #[id number] Admin Amount: 1 Tab (1 x 1 mg Tab) Ordered Dose: 1 mg Route: Oral Freq: ONCE Start Date: 12/24/17 No administration times (back 96 hours, ahead 96 hours). ------ALPRAZolam (XANAX) tablet 2 mg #[id number] Admin Amount: 4 Tab (4 x 0.5 mg Tab) Ordered Dose: 2 mg Route: Ora l Freq: NOW Start Date: 12/24/17 No administration times (back 96 hours, ahe ad 96 hours). ------lamoTRIgine (LaMICtal) tablet 100 mg #[id number] Admin Amount: 1 Tab (1 x 100 mg Tab) Ordered Dose: 100 mg Route: Oral Delgado q: ONCE Start Date: 12/24/17 No administration times (back 96 hours, ahead 96 hours). ------OLANZapine (ZyPREXA zydis) disintegrating tablet 5 mg #[id number] Admin Amount: 1 Tab (1 x 5 mg Tab) Ordered Dose: 5 mg Route: Oral Delgado q: ONCE Start Date: 12/25/17 No administration times (back 96 hours, ahead 96 hours). ------LORazepam (ATIVAN) tablet 2 mg #[id number] Admin Amount: 4 Tab (4 x 0.5 mg Tab) Ordered Dose: 2 mg Route: Ora l Freq: NOW Start Date: 12/25/17 No administration times (back 96 hours, [facility] ad 96 hours). ------LORazepam (ATIVAN) injection 1 mg #[id number] Admin Amount: 0.5 mL = 1 mg of 2 mg/mL Ordered Dose: 1 mg Route: Int Katherin Freq: NOW Start Date: 12/25/17 No administration times (back 96 hours, e ad 96 hours). ------barium sulfate (EZ PAQUE) 96 % (w/w) contrast suspension 17 6 g #[id number] Admin Amount: 176 g Ordered Dose: 176 g Route: Oral Freq: RAD ONCE Start Date: 08/02/18 No administration times (back 96 hours, ahead 96 hours). ------barium sulfate (EZ PAQUE) 96 % (w/w) contrast s uspension 176 g #[id number] Admin Amount: 176 g Ordered Dose: 176 g Route: Oral Delgado q: RAD ONCE Start Date: 08/02/18 No administration times (back 96 hours, ahead 96 hours).Maxwell Ritter MR#: [id number] * Rm: [id number]: 5' 10" Wt: 280 lb Co de: Prior Iso:Diagnosis:Allergies: No Known Allergies -------- Current as of: 08/16/192245 GI=Given IC=IV Complet ed NB=New Bag --aspirin chewable tablet 162 mg #[id number] Admin Amount: 2 Tab (2 x 81 mg Tab) Ordered Dose: 162 mg Route: Oral Freq: NOW Start Date: 08/10/19 No administration times (back 96 hours, ahead 96 hours). ------famotidine (PF) (PEPCID) 20 mg in 0.9% sodium chloride 10 mL inje cti*#[id number] Admin Amount: 20 mg Ordered Dose: 20 mg Route: IntraVENous Freq: EVERY 12 H OURS Start Date: 08/16/19 Administration times (back 96 hours, ahead 96 hours): 08/16/19: 2119G I 08/17/19: 89908/18/19: 89908/19/19: 89908/20/19: 899 2099 ---0.9% sodium chloride infusion 1,000 mL #[id number] Admin Amount: 1,000 mL Ordered Dose: 1,000 mL Route: IntraVENous Freq: ONC E Start Date: 08/16/19 Rate: 1,000 mL/hr Duration: Administration times (back 96 hours, ahead 96 hours): 08/16/19: 2118NB 2245IC -----methylPREDNISolone (PF) (Solu-MEDROL) injection 125 mg #[id number] Admin Amount: 2 mL = 125 mg of 125 mg/2 mL Ordered Dose: 125 mg Route: Int raVENous Freq: NOW Start Date: 08/16/19 Administration times (back 96 hours, ahe ad 96 hours): 08/16/19: 2118GI -----aspirin chewable tablet 162 mg #[id number] Admin Amount: 2 Tab (2 x 81 [...] mg by mouth three (3) times daily.Dispense [place] unt:Start Date:End Date:Doc. Provider: Paul Bradford MDpredniSONE [...] DDetails:In 2 daysComments:Contact Info:[phone]-up With:[facility] EMERGENCY DEPARTMENTDetails:Comments:As needed, If symptoms worsenContact Info:[address] Kevin WoodardWarren State Hospitalrussell [place] [phone] Name Value Range Interpretation Code Description Data Melani rce(s) Supporting Document(s ) ID Date Data Source [id number] 08/16/2019 10:45:45 PM EST [facility] IV site clean/dry/intact, gauze dressing applied. Pt received written and verbaldischarge instructions. Verbalize d understanding of same. Ambulated out of EDwith steady gait and in no distress. Name Value Range Interpretation Code Description Data Melani rce(s) Supporting Document(s ) ID Date Data Source [id number] 08/16/2019 09:58:14 PM EST [facility] Name Value Range Interpretation Description Data Sup porting Code Source(s) Document(s ) [place] 0.21 0.6-1.2 Below low normal [facility] [Moles/volu MMOL/L [facility]] in Hospital Serum or Plasma ID Date Data Source [id number] 08/16/2019 09:52:19 PM EST [facility] Name Value Range Interpretation Code Description Data Melani rce(s) Supporting Document(s ) Fibrin <500 [facility] [[facility]critical access [facility]] [facility] in Platelet poor plasma (NOTE)Combination of a D-Dimer result wi thin the reference range and a lowclinical pretest probability has good negative pr edictive value fordeep venous thrombosis.If results are utilized for VTE evaluation, <500 ng/ml is consideredto be negative. ID Date Data Source [id number] 08/16/2019 09:44:39 PM [facility] Name Value Range Interpretation Description Data Sup porting Code Source(s) Document(s ) Troponin 0.00-0.05 BSS - Good I.cardiac [facility] ] in Serum or Plasma [...] to 1.50 ng/mL ID Date Data Source [id number] 08/16/2019 09:44:39 PM EST [facility] Name [...] non- Americans (GFRNA), and normalized to 1.7 2c0exav surface area. The physician must decide which [...] normal [facility] - [facility] Serum or Plasma [facility] ital Bilirubin.total 0.3 mg/dL 0.2-1.0 [facility] - [facility] [Mass/volume] in Serum or [facility] Plasma Alanine aminotransferase 37 U/L 13-61 [facility] [Enzymatic activity/volume] [facility] in Serum or Plasma Aspartate aminotransferase 22 U/L 15-37 [facility] - Good [Enzymatic activity/volume] [facility] in Serum or Plasma by With P-5'-P Alkaline phosphatase 98 U/L 45-117 [facility] - G ood [Enzymatic activity/volume] [facility] in Serum or Plasma Protein [Mass/volume] in 7.0 g/dL 6.4-8.2 [facility] - [facility] Serum or Plasma [facility] ital Albumin [Mass/volume] in 3.7 g/dL 3.5-4.7 [facility] Serum or Plasma by [facility] ospital Bromocresol purple (BCP) dye binding method Globulin [Mass/volume] in 3.3 g/dL 1.7-4.7 [facility] Serum by calculation [facility] Albumin/Globulin [Mass 1.1 0.7-2.8 [facility] Ratio] in Serum or Plasma [facility] ID Date Data Source [id number] 08/16/2019 09:44:39 PM EST [facility] Name Value Range Interpretation Description Data Sup porting Code Source(s) Document(s ) Magnesium 2.3 mg/dL 1.6-2.6 [facility] [Mass/volume] [facility] in Serum or Hospital Plasma ID Date Data Source [id number] 08/16/2019 09:23:23 PM EST [facility] Name Value Range Interpretation Description Data Sup porting Code Source(s) Document(s ) Leukocytes 7.6 K/uL 4.8-10.6 [facility] - [#/volume] in Good Blood by [facility] Automated count Hospital Erythrocytes 4.97 4.70-6.0 [facility] - [#/volume] in M/uL 0 Good Blood by [facility] Automated [facility] Hemoglobin 15.2 14.0-18. [facility] - [Mass/volume] in g/dL 0 [facility] Blood [facility] Hematocrit 45.0 % 42.0-52. [facility] - [Volume 0 Good Fraction] of [facility] Blood by Hospital Automated count Erythrocyte mean 90.5 FL 81.0-94. [facility] - corpuscular 0 Good volume [Entitic [facility] volume] by [facility] Automated count Erythrocyte mean 30.6 PG 27.0-35. [facility] - corpuscular 0 Good hemoglobin [facility] [Entitic mass] [facility] by Automated count Erythrocyte mean 33.8 30.7-37. [facility] - corpuscular g/dL 3 Good hemoglobin [facility] [Mass/volume] by Automated count Erythrocyte 13.0 % 11.5-14. [facility] - distribution 0 Good width [Ratio] by [facility] Automated count [facility] Platelets 183 K/uL 130-400 [facility] - [#/volume] in Good Blood by [facility] Automated count [facility] Platelet mean 8.5 FL 9.2-11.8 Below low normal [facility] - volume [Entitic Good volume] in Blood [facility] count Nucleated 0.0 PER 0 [facility] - erythrocytes/100 100 WBC Good leukocytes [facility] [Ratio] in Blood [facility] Nucleated 0.00 0.0-0.01 [facility] - erythrocytes K/uL Good [#/volume] in [facility] Segmented 68 % 48.0-72. [facility] - neutrophils/100 0 Good leukocytes in [facility] Lymphocytes/100 19 % 18.0-40. [facility] - leukocytes in 0 [facility] Blood [facility] Monocytes/100 7 % 2.0-12.0 [facility] - leukocytes in [facility] Blood [facility] Eosinophils/100 5 % 0.0-7.0 [facility] - leukocytes in [facility] Blood [facility] Basophils/100 1 % 0.0-3.0 [facility] - leukocytes in [facility] Blood [facility] Immature 1 % 0-0.5 Above high normal [facility] - granulocytes/100 Good leukocytes in [facility] Blood by Hospital Automated count Segmented 5.2 K/UL 2.3-7.6 [facility] - neutrophils Good [#/volume] in [facility] Lymphocytes 1.5 K/UL 0.9-4.2 [facility] - [#/volume] in [facility] Monocytes 0.6 K/UL 0.1-1.7 [facility] - [#/volume] in [facility] Eosinophils 0.3 K/UL 0.0-1.0 [facility] - [#/volume] in [facility] Basophils 0.0 K/UL 0.0-0.4 [facility] - [#/volume] in [facility] Immature 0.0 K/UL 0.0-0.17 [facility] - granulocytes Good [#/volume] in [facility] by [facility] Automated count Differential [facility] - cell count Good method [facility] ID Date Data Source [id number] 08/16/2019 08:50:30 PM EST [facility] sudden onset of difficulty breathing and rash while eating leticia food, rashacross face and chest slightly raised, no vesicles, denies any chest pain deniesany itching at this time. Went to [facility], recei nataliia benadryl 50 mg IMfrom EMS. Name Value Range Interpretation Code Description Data [facility] Supporting Document(s ) ID Date Data Source [id number] 08/11/2019 08:03:02 AM EST [facility] History:Chest pain. Shortness of breath. FINDINGS:A [...] Name Value Range Interpretation Code Description Data [facility] rce(s) Supporting Document(s ) ID Date Data Source [id number] 08/11/2019 04:22:14 AM EST [facility] The history is provided by the [...] morbidity or mortality cardiac cath at [facility] approx 6-8 months ag o Other [...] QTC Calculation (Bezet) 435 ms Calculated P [place] 55 degrees Calculated R [place] 34 degrees Calculated T [place] 9 degrees Diagnosis S inus tachycardiaOtherwise normal [...] Time: 08/11/19 12:01 AMResult Value Ref Range [place] level <0.20 (L) 0.6 - 1.2 MMOL/LLACTIC [...] 36N*ENCOUNTER 08/11/2019 01:42:54 AM EST [facility] [id number] [facility] EMERGENCY DEPART[facility] [address] [facility] [id number] [phone] Maxwell Mitchell Anam (Male) [id number] JOSE 2 ED Dispo:DISCHARGE Chief Complaint: Chest Pain, Shortne ss of Breath Diagnosis: Dyspnea, unspecified type [] Current Providers: Atte nding: Javier Quezada Primary Nurse: ELIS WilsonN: [id number] [employer] p [id number] - Bshsi [employer] Med[employer] MrnMRN: [id number] [employer] [phone] - Bs hsi [employer] Medva Age SexDOB 1970 AGE 49 SEX Male Primary Care Provider: Ritika Canas MD Phone: [phone]: (No Known Allergies)Date Reviewed: 08/10/2019Reviewed by: Chiquis Christianson CompleteED Provider Notes: No notes of this type exist for this encounter.ED Orders [id number] E KG, 12 LEAD, INITIAL [#[id number]] Priority: STAT Class: Hospital Performed Stand ing Order Information Remaining Occurrences:0/1 Interval:ONE TIME Last released:0 08/10/2019 Released orders: Arabella Aug 10, 2019 10:17 PM by: CHIQUIS CHRISTIANSON Reason for Exam: -> CP SOB [id number] EKG, 12 LEAD, INITIAL [#[id number]] Priority: STAT Class: Hospital Performed Specimen Collected: 08/10/2019 10:14 PM Resulting Agency: [facility] Test ID: [id number] Reason for Exam: -> CP SOB Released on: 08/10/2019 10:17 PM [id number] EKG, 12 LE AD, INITIAL [#[id number]] Priority: STAT Class: Hospital Performed Standing Or mariano Information Remaining Occurrences:0/1 Interval:ONE TIME Last released:0 08/10/2019 Released orders: Arabella Aug 10, 2019 11:51 PM by: MAYANK QUEZADA V Reason fo r Exam: -> Chest Pain [id number] EKG, 12 LEAD, INITIAL [#[id number]] Priority: STAT C lass: Hospital Performed Resulting Agency: [facility] Test ID: [id number] Reason for Exam: -> Chest P ain Released on: 08/10/2019 11:51 PM [id number] DOCTOR NATUROPATHIC - ED ONLY [#[id number]] Priority: STAT Class: Hospital Performed Standing Order Information Remaining Occurre nces:0/1 Interval:Continuous Last released:08/10/2019 Released orders : Arabella Aug 10, 2019 11:51 PM by: MAYANK QUEZADA V Type: -> Bedside [id number] PULSE OXIMETR Y CONTINUOUS [#[id number]] Priority: STAT Class: Hospital Performed Standing Or mariano Information Remaining Occurrences:0/1 Interval:CONTINUOUS Last released :08/10/2019 Released orders: Loraine Aug 10, 2019 11:51 PM by: MAYANK QUEZADA V [id number] PULSE OXIMETRY SPOT CHECK [#[id number]] Priority: STAT Class: Hospital Performe d Standing Order Information Remaining Occurrences:0/1 Interval:ONE TIME Last r eleased:08/10/2019 Released orders: Loraine Aug 10, 2019 11:51 PM by: MAYANK QUEZADA V NU [id number] OBTAIN OLD EKG [#[id number]] Priority: Routine Class: Hospital Perfo rmed Standing Order Information Remaining Occurrences:0/1 Interval:ONE TI ME Last released:08/10/2019 Released orders: Loraine Aug 10, 2019 11:51 PM by: MAYANK QUEZADA V [id number] DOCTOR NATUROPATHIC - ED ONLY [#[id number]] Priority: STAT Class: H ospital Performed Type: -> Bedside Released on: 08/10/2019 11:51 PM [id number] PULSE OXIM ETRY CONTINUOUS [#[id number]] Priority: STAT Class: Hospital Performed Released on : 08/10/2019 11:51 PM [id number] PULSE OXIMETRY SPOT CHECK [#[id number]] Priority: STAT C lass: Hospital Performed Released on: 08/10/2019 11:51 PM [id number] OBTAIN OLD EKG [#[id number]] Priority: STAT Class: Hospital Performed Released on: 08/10/2019 11: 51 PM [id number] RT--OXYGEN CANNULA [#[id number]] Priority: STAT Class: H ospital Performed Standing Order Information Remaining Occurrences:0/1 Interval:CONTIN UOUS Last released:08/10/2019 Released orders: Loraine Aug 10, 2019 11:51 PM by: MAYANK PRADO V Comment:TITRATE UP TO 4 L / MINUTE TO MAINTAIN O2 SATS GREATER THAN OR EQUAL TO 94% LPM -> 2 Indications for O2? -> CHEST PAIN [id number] RT--OXYGEN CANNULA [#[id number]] Priority: STAT Class: Hospital Performed Comment:TITRATE UP TO 4 L / MINUTE TO MAINTAIN O2 SATS GREATER THAN OR EQUAL TO 94% LPM -> 2 Indications fo r O2? -> CHEST PAIN Released on: 08/10/2019 11:51 PM [id number] DIET NPO [#[id number]] Priority: STAT Class: Hospital Performed Standing Order Information Remaining Occurrences:0/1 Interval:DIET EFFECTIVE NOW Last released:08/10 Released orders: Loraine Aug 10, 2019 11:51 PM by: MAYANK QUEZADA V NPO options: - > With Meds [id number] DIET NPO [#[id number]] Priority: STAT Class: H ospital Performed NPO options: -> With Meds Released on: 08/10/2019 11:51 PM [id number] SALINE LOCK IV [#[id number]] Priority: STAT Class: Hospital Performed Standing O rder Information Remaining Occurrences:0/1 Interval:ONE TIME Last released:0 08/10/2019 Released orders: Loraine Aug 10, 2019 11:51 PM by: MAYANK QUEZADA V IVT11 SALI NE LOCK IV [#[id number]] Priority: STAT Class: Hospital Performed Relea sed on: 08/10/2019 11:51 PM [id number] METABOLIC PANEL, COMPREHENSIVE [#[id number]] Bridgette ority: STAT Class: ER Collect Standing Order Information Remaining Occurrences:0/1 In terval:ONE TIME Last released:08/10/2019 Released orders: Loraine Aug 10, 2019 11:51 PM by: MAYANK QUEZADA V [id number] CBC WITH AUTOMATED DIFF [#[id number]] Priority: STAT Class: ER Collect Standing Order Information Remaining Occurrences:0/1 Inter haile:ONE TIME Last released:08/10/2019 Released orders: Loraine Aug 10, 2019 11:51 PM by: MAYANK QUEZADA V [id number] TROPONIN I [#[id number]] Priority: STAT Class: ER Collect Standing Order Information Remaining Occurrences:0/1 Inter haile:ONE TIME Last released:08/10/2019 Released orders: Loraine Aug 10, 2019 11:51 PM by: MAYANK QUEZADA V [id number] MAGNESIUM [#[id number]] Priority: STAT Class: ER Collect Standing Order Information Remaining Occurrences:0/1 Inter haile:ONE TIME Last released:08/10/2019 Released orders: Loraine Aug 10, 2019 11:51 PM by: MAYANK QUEZADA V [id number] BNP [#[id number]] Priority: STAT Class: ER Collect Standing Order Information Remaining Occurrences:0/1 Inter haile:ONE TIME Last released:08/10/2019 Released orders: Loraine Aug 10, 2019 11:51 PM by: MAYANK QUEZADA V [id number] D DIMER [#[id number]] Priority: STAT Class: ER Collect Standing Order Information Remaining Occurrences:0/1 Inter haile:ONE TIME Last released:08/10/2019 Released orders: Loraine Aug 10, 2019 11:51 PM by: MAYANK QUEZADA V [id number] PROTHROMBIN TIME + INR [#[id number]] Priority: STAT Class: ER Collect Standing Order Information Remaining Occurrences:0/1 Inter haile:ONE TIME Last released:08/10/2019 Released orders: Loraine Aug 10, 2019 11:51 PM by: MAYANK QUEZADA V [id number] PTT [#[id number]] Priority: STAT Class: ER Collect Specimen Source: Blood Standing Order Information Remaining Occurrences:0 /1 Interval:ONE TIME Last released:08/10/2019 Released orders: Loraine Aug 10, 2019 11:51 PM by: MAYANK QUEZADA V [id number] LITHIUM [#[id number]] Pr iority: STAT Class: ER Collect Standing Order Information Remaining Occurrences:0/1 I nterval:ONE TIME Last released:08/10/2019 Released orders: Loraine Aug 10, 2019 11:51 PM by: MAYANK QUEZADA V [id number] METABOLIC PANEL, COMPREHENSIVE [#[id number]] Bridgette ority: STAT Class: ER Collect Specimen Source: Plasma Specimen Collected: 08/11/2019 12:01 AM Resulting Agency: [facility] Test ID: MPL Released on: 08/10/2019 11:51 PM [id number] CBC WITH AUTOMATED DIFF [#[id number]] Priority: STAT Class: E R Collect Specimen Source: Whole Blood Specimen Collected: 08/11/2019 12:01 AM Resulting Agency: [facility] Test ID: [id number] Released on: 08/10/2019 11:51 PM [id number] TROPON IN I [#[id number]] Priority: STAT Class: ER Collect Specimen Source: [place] sma Specimen Collected: 08/11/2019 12:01 AM Resulting Agency: [facility] RY Test ID: TROIP Released on: 08/10/2019 11:51 PM [id number] MAGNESIUM [#[id number]] Priority: STAT Class: ER Collect Specimen Source: Plasma Specimen Collec hyun: 08/11/2019 12:01 AM Resulting Agency: [facility] Test ID: MGPL Re leased on: 08/10/2019 11:51 PM [id number] BNP [#[id number]] Priority : STAT Class: ER Collect Specimen Source: Plasma Specimen Collected: 08/11/2019 12:01 AM Resultin g Agency: [facility] Test ID: BNPPB Released on: 08/10/2019 11:51 PM [id number] 74 D DIMER [#[id number]] Priority: STAT Class: ER Collect Speci men Source: Plasma Specimen Collected: 08/11/2019 12:01 AM Resulting Agency: [facility] Test ID: DDIME Released on: 08/10/2019 11:51 PM [id number] PROTHROMBIN TIME + INR [#[id number]] Priority: STAT Class: ER Collect Specimen Source: Plasma Specimen Collec hyun: 08/11/2019 12:01 AM Resulting Agency: [facility] Test ID: APTHR R eleased on: 08/10/2019 11:51 PM [id number] PTT [#[id number]] Priorit y: STAT Class: ER Collect Specimen Source: Plasma Specimen Collected: 08/11/2019 12:01 AM Resultin g Agency: [facility] Test ID: APTT Released on: 08/10/2019 11:51 PM [id number] LITHIUM [#[id number]] Priority: STAT Class: ER Collect Speci men Source: Serum Specimen Collected: 08/11/2019 12:01 AM Resulting Agency: [facility] Test ID: LI Released on: 08/10/2019 11:51 PM [id number] LACTIC ACID [#[id number]] Priority: STAT Class: ER Collect Standing Order Information Remainin g Occurrences:0/1 Interval:ONE TIME Last released:08/11/2019 Released orders : Mon Aug 11, 2019 12:15 AM by: KATI WILSON [id number] LACTIC ACID [#[id number]] Priority: STAT Class: ER Collect Specimen Source: Plasma Specimen Collec hyun: 08/11/2019 12:01 AM Resulting Agency: [facility] Test ID: LAC Rel eased on: 08/11/2019 12:15 AM ASPIRIN 81 MG CHEWABLE TAB [#[id number]] Priority: STAT Class: Normal [id number] XR CHEST PORT [#[id number]] Priority: STAT Cl ass: Hospital Performed Standing Order Information Remaining Occurrences:0/1 Inter haile:ONE TIME Last released:08/10/2019 Released orders: Sun Aug 10, 2019 11:51 PM by: MAYANK QUEZADA V Reason for Exam -> Chest Pain [id number] XR CHEST PORT [#[id number]] Priority: STAT Class: Hospital Performed Resulting Agency: [facility] Test ID: [id number] Reason for Exam -> Chest Pain Released on: 08/10/2019 11:51 PM [id number] 6 INFLUENZA A & B AG (RAPID TEST) [#[id number]] Priority: STAT Class: ER Collect Sta nding Order Information Remaining Occurrences:0/1 Interval:ONE TIME Last released: 08/10/2019 Released orders: Sun Aug 10, 2019 11:51 PM by: MAYANK QUEZADA V [id number] INFL UENZA A & B AG (RAPID TEST) [#[id number]] Priority: STAT Class: ER Collect Specimen Source : Nasal washing Specimen Collected: 08/11/2019 12:18 AM Resulting Agency: [facility] Test ID: INFLUA Released on: 08/10/2019 11:51 PM [id number] CULTURE, BLOOD [#[id number]] Priority: STAT Class: ER Collect Specimen Source: Blood Standing Order Information Remaining Occurrences:0/1 Interval:ONE TIME Last released:0 08/11/2019 Released orders: SunAug 11, 2019 12:15 AM by: KATI WILSON [id number] CULTU RE, BLOOD [#[id number]] Priority: STAT Class: ER Collect Specimen Source : Blood Standing Order Information Remaining Occurrences:0/1 Interval:ONE TI ME Last released:08/11/2019 Released orders: SunAug 11, 2019 12:15 AM by: KATI WILSON [id number] CULTURE, BLOOD [#[id number]] Priority: STAT Class: E R Collect Specimen Source: Blood Specimen Collected: 08/11/2019 12:33 AM Resulting Agency: [facility] Test ID: HBCS Released on: 08/11/2019 12:15 AM [id number] ALEK SWARTZ [#[id number]] Priority: STAT Class: ER Collect Specimen Source: Calli od Specimen Collected: 08/11/2019 12:43 AM Resulting Agency: [facility] Test ID: HBCS Released on: 08/11/2019 12:15 AMMaxwell Bray MR#: [id number] Acct#: [id number] Rm: [id number]: 5' 10" Wt: 280 lb Code: Prior Iso:Diagnosis:Allergies: No Kno wn Allergies -------- Current as of: 08/11/19141 GI=Given -------aspirin (ASPIRIN) tablet 325 mg #[id number] Admin Amount: 1 Tab (1 x 325 mg Tab) Ordered Dose: 325 mg Route: Oral Freq: ONCE Start Date: 12/24/13 No administration times (b ack 96 hours, ahead 96 hours). ------diphenhydrAMINE (BENADRYL) capsule 50 mg #[id number] Admin Amount: 1 Cap (1 x 50 mg Cap) Ordered Dose: 50 mg [place]: Oral Freq: NOW Start Date: 12/24/13 No administration times (back 96 hours, ahead 96 hours). ------diazepam (VALIUM) tablet 5 mg #[id number] Admin Amount: 1 Tab (1 x 5 mg Tab) Ordered Dose: 5 mg Route: Oral Freq: ONCE Start Date: 12/24/13 No administration times (back 96 hours, ahead 96 hours). ------lidocaine (XYLOCAINE) 10 mg/mL (1 %) injection 1-3 0 mL #[id number] Admin Amount: 1-30 mL Ordered Dose: 1-30 mL Route: Int raDERMal Freq: ONCE Start Date: 12/24/13 No administration times (back 96 hours, ahead 96 hours). ------heparin (PF) 2 units/ml in NS infusion 2,000 Units #[id number] Admin Amount: 1,000 mL = 2,000 Units of 2 Units/mL Ordered Dose: 1,000 mL Route: Irrigation Freq: ONCE Start Date: 12/24/13 No administration times (back 96 hours, ahead 96 hours). ------heparinized saline 2 units/mL infusion 1,000 Units #[id number] Admin Amount: 500 mL = 1,000 Units of 2 Units/mL Ordered Dose: 500 m L Route: IntraarTERial Freq: ONCE Start Date: 12/24/13 No admini stration times (back 96 hours, ahead 96 hours). ------0.9% sodium chloride infusion #[id number] Ordered Dose: 75 mL/hr Route: IntraVENous Freq: CONTINUOUS Start Date: 12/24/13 Rate: 75 mL/hr Duration: No administration ti mes (back 96 hours, ahead 96 hours). ------ioversol (OPTIRAY) 320 mg iodine/mL contrast inje ction 1-100 mL #[id number] Admin Amount: 1-100 mL Ordered Dose: 1-100 mL [place]: IntraVENous Freq: RAD ONCE Start Date: 12/24/13 No administration times (back 96 hours, ahead 96 hours).Maxwell Bray MR#: [id number] * Rm: [id number] Ht: 5' 10" Wt: 280 lb Code: Prior Iso:Diagnosis:Allergies: No Known Allergies -------- Current as of: 08/11/19 0142 GI=Given -------gadobutrol (GADAVIST) contrast solution 1-10 mL #[id number] Admin Amount: 1-10 mL Ordered Dose: 1-10 mL Route: Int raVENous Freq: RAD ONCE Start Date: 01/13/14 No administration times (back 96 hours, ahead 96 hours). ------sodium chloride (NS) flush 5-10 mL #[id number] Admin Amount: 5-10 mL Ordered Dose: 5-10 mL Route: IntraVENo us Freq: RAD ONCE Start Date: 01/13/14 No administration times (back 96 hours, ahe ad 96 hours). ------sodium chloride (NS) 0.9 % flush #[id number] Ordered Dose: Route: Freq: Start Date: 01/13/14 No administration times (back 96 hours, ahead 96 hours). ------morphine injection 2 mg #[id number] Admin Amount: 1 mL = 2 mg of 2 mg/mL Ordered Dose: 2 mg Route: IntraVENous Freq: NOW Start Date: 03/13/15 No administration t imes (back 96 hours, ahead 96 hours). ------influenza vaccine (4 yr+)(PF) (FLUCELVAX Q UAD) injection 0.5*#[id number] Admin Amount: 0.5 mL Ordered Dose: 0.5 mL Route: Int raMUSCular Freq: PRIOR TO DISCHARGE Start Date: 03/30/16 No administration times (back 9 6 hours, ahead 96 hours). ------oxyCODONE-acetam inophen (PERCOCET) 5-325 mg per tablet 1 Tab #[id number] Admin Amount: 1 Tab Ordered Dose: 1 Tab Route: Oral Freq: NOW Start Date: 09/07/17 No administration times (back 96 hours, ahe ad 96 hours). ------barium sulfate (READICAT) 2.1 % (w/v), 2.0 % (w/w) oral suspension 9*#[id number] Admin Amount: 900 mL Ordered Dose: 900 mL Route: Oral Delgado q: RAD ONCE Start Date: 10/15/17 No administration times (back 96 hours, ahe ad 96 hours). ------iopamidol (ISOVUE 300) 61 % contrast injection 100 mL #[id number] Admin Amount: 100 mL Ordered Dose: 100 mL Route: Int raVENous Freq: RAD ONCE Start Date: 10/15/17 No administration times (back 96 hours, ahead 96 hours).Maxwell Bray MR#: [id number] * Rm: [id number]: 5' 1 0" Wt: 280 lb Code: Prior Iso:Diagnosis:Allergies: No Known Allergies -------- Current as of: 08/11/192 GI=Given -------risperiDONE (RisperDAL m-tabs) disintegrating tablet 1 mg #[id number] Admin Amount: 1 Tab (1 x 1 mg Tab) Ordered Dose: 1 mg Route: Oral Freq: ONCE Start Date: 12/24/17 No administration times (back 96 hours, ahead 96 hours). ------ALPRAZolam (XANAX) tablet 2 mg #[id number] Admin Amount: 4 Tab (4 x 0.5 mg Tab) Ordered Dose: 2 mg Route: Oral Freq: NOW Start Date: 12/24/17 No administration times (back 96 hours, ahead 96 hours). ------lamoTRIgine (LaMICtal) tablet 100 mg #[id number] Admin Amount: 1 Tab (1 x 100 mg Tab) Ordered Dose: 100 mg Route: Oral Freq: ONCE Start Date: 12/24/17 No administration times (back 96 hours, ahead 96 hours). ------OLANZapine (ZyPREXA zydis) disintegrating tablet 5 mg #[id number] Admin Amount: 1 Tab (1 x 5 mg Tab) Ordered Dose: 5 mg Route: Oral Freq: ONCE Start Date: 12/25/17 No administration times (back 96 hours, ahead 96 hours). ------LORazepam (ATIVAN) tablet 2 mg #[id number] Admin Amount: 4 Tab (4 x 0.5 mg Tab) Ordered Dose: 2 mg Route: Oral Freq: NOW Start Date: 12/25/17 No administration times (back 96 hours, ahead 96 hours). ------LORazepam (ATIVAN) injection 1 mg #[id number] Admin Amount: 0.5 mL = 1 mg of 2 mg/mL Ordered Dose: 1 mg Route: IntraVENous Freq: NOW Start Date: 12/25/17 No administration ti mes (back 96 hours, ahead 96 hours). ------barium sulfate (EZ PAQUE) 96 % (w/w) contrast suspensio n 176 g #[id number] Admin Amount: 176 g Ordered Dose: 176 g Route: Oral [place]gado q: RAD ONCE Start Date: 08/02/18 No administration times (back 96 hours, [facility] ad 96 hours). ------barium sulfate (EZ PAQUE) 96 % (w/w) contrast suspensio n 176 g #[id number] Admin Amount: 176 g Ordered Dose: 176 g Route: Oral Delgado q: RAD ONCE Start Date: 08/02/18 No administration times (back 96 hours, e ad 96 hours).Maxwell Bray MR#: [id number] * Rm: [id number]: 5' 10" Wt: 280 lb Code: Prior Iso:Diagnosis:Allergies: No Known Allergies -------- Current as of: 08/11/19 0142 GI=Given -------aspirin chewable tablet 162 mg #[id number] Admin Amount: 2 Tab (2 x 81 [...] [place] [address] [id number] With:Detail s:Comments:As needed, If symptoms worsenContact Info: Name Value Range Interpretation Code Description Data Melani rce(s) Supporting Document(s ) ID Date Data Source [id number] 08/11/2019 01:40:37 AM EST [facility] I have reviewed discharge instructions w ith the patient and spouse. The patientand spouse verbalized understanding.\\ Name Value Range Interpretation Code Description Data Melani rce(s) Supporting Document(s ) ID Date Data Source [id number] 08/16/2019 06:35:29 AM [facility] Name Value Range Interpretation Description Data Sup porting Code Source(s) Document(s ) Service comment [facility] Bacteria [facility] - Good [facility] ID Date Data Source [id number] 08/16/2019 06:35:28 AM [facility] Name Value Range Interpretation Description Data Sup porting Code Source(s) Document(s ) Service comment [facility] Bacteria BSS - Good identified in [facility] specimen by Culture ID Date Data Source [id number] 08/11/2019 12:56:01 AM EST [facility] Name Value Range Interpretation Description Data Sup porting Code Source(s) Document(s ) Influenza virus NEG [facility] A Ag [Presence] [facility] in [facility] by Immunoassay Influenza virus NEG [facility] B Ag [Presence] [facility] by Immunoassay IMMUNOCHROMATOGRAPHIC MEMBRANE ASSAYResu lt: Negative for Influenza A and BNote: A negative result does not exclude an infl uenza virus infection, including H1N1. If more conclusive testing is desired, foll ow-up confirmatory testing is warranted. Specimen source [Identifier] of Unspecified [facility] specimen ID Date Data Source [id number] 08/11/2019 01:35:58 AM EST [facility] Value Range Interpretation Description Data Sup porting Code Source(s) Document(s ) Prothrombin 9.6 sec 9.4-11.1 BSS - [facility] time (PT) [facility] INR in 0.9 0.8-1.2 [facility] - Good Platelet poor [facility] plasma by Hospital Coagulation assay ID Date Data Source [id number] 08/11/2019 01:35:58 AM EST [facility] Value Range Interpretation Description Data Sup porting Code Source(s) Document(s ) aPTT in 23.1 SEC 21.0-28. [facility] - Good Platelet poor 0 [facility] plasma by Hospital Coagulation assay Therapeutic Range = 42.0-60.0 secs ID Date Data Source [id number] 08/11/2019 01:30:36 AM EST [facility] Value Range Interpretation Description Data Sup porting Code Source(s) Document(s ) Natriuretic 19 pg/mL 0-100 [facility] peptide [facility] [Mass/volume] [facility] in Serum or Plasma ID Date Data Source [id number] 08/11/2019 01:25:10 AM EST [facility] Value Range Interpretation Code Description Data Supporting Source(s) Document(s ) [place] 0.6-1.2 Below low normal [facility] - Good [Moles/volum [facility] e] in Serum Hospital or Plasma ID Date Data Source [id number] 08/11/2019 01:20:56 AM EST [facility] Value Range Interpretation Code Description Data Melani rce(s) Supporting Document(s ) Fibrin <500 BSS - [facility] D-dim[facility] [Mass/volume] [facility] in Platelet poor plasma (NOTE)Combination of a D-Dimer result wi thin the reference range and a lowclinical pretest probability has good negative pr edictive value fordeep venous thrombosis.If results are utilized for VTE evaluation, <500 ng/ml is consideredto be negative. ID Date Data Source [id number] 08/11/2019 01:09:42 AM EST [facility] Value Range Interpretation Description Data Sup porting Code Source(s) Document(s ) Lactate 1.7 0.4-2.0 [facility] - Good [Moles/volu MMOL/L [facility] tx] in Hospital Serum or Plasma ID Date Data Source [id number] 08/11/2019 01:09:42 AM [facility] Name Value [...] to 1.50 ng/mL ID Date Data Source [id number] 08/11/2019 01:09:42 AM [facility] Range Interpretation Description [...] non- Americans (GFRNA), and normalized to 1.7 9k2moes surface area. The physician must decide which [...] Serum or Plasma [facility] Hosp ital Bilirubin.total 0.5 mg/dL 0.2-1.0 [facility] - Good [Mass/volume] in Serum or [facility] Plasma Alanine aminotransferase 29 U/L 13-61 [facility] - Good [Enzymatic activity/volume] [facility] in Serum or Plasma Aspartate aminotransferase 18 U/L 15-37 [facility] HS - Good [Enzymatic activity/volume] [facility] in Serum or Plasma by With P-5'-P Alkaline phosphatase 98 U/L 45-117 [facility] - G ood [Enzymatic activity/volume] [facility] in Serum or Plasma Protein [Mass/volume] in 6.7 g/dL 6.4-8.2 [facility] - Good Serum or Plasma [facility] Hosp ital Albumin [Mass/volume] in 3.4 g/dL 3.5-4.7 Below low normal [facility] - Good Serum or Plasma by [facility] oslydiatal Bromocresol purple (BCP) dye binding method Globulin [Mass/volume] in 3.3 g/dL 1.7-4.7 [facility] - Good Serum by [facility] Albumin/Globulin [Mass 1.1 0.7-2.8 [facility] - Good Ratio] in Serum or Plasma [facility] ID Date Data Source [id number] 08/11/2019 01:09:42 AM EST [facility] - Good [facility] Name Value Range Interpretation Description Data Sup porting Code Source(s) Document(s ) Magnesium 2.1 mg/dL 1.6-2.6 [facility] - Good [Mass/volume] [facility] in Serum or Hospital Plasma ID Date Data Source [id number] 08/11/2019 01:01:18 AM EST [facility] - Good [facility] Name Value Range Interpretation Description Data Sup porting Code Source(s) Document(s ) Leukocytes 7.7 K/uL 4.8-10.6 [facility] - [#/volume] in Good Blood by [facility] Erythrocytes 4.93 4.70-6.0 [facility] - [#/volume] in M/uL 0 Good Blood by [facility]ated [facility] Hemoglobin 14.9 14.0-18. [facility] - [Mass/volume] in g/dL 0 Good Blood [facility] Hematocrit 44.4 % 42.0-52. [facility] - [Volume 0 Good Fraction] of [facility] Blood by [facility] Automated count Erythrocyte mean 90.1 FL 81.0-94. [facility] - corpuscular 0 Good volume [Entitic [facility] volume] by Hospital Automated count Erythrocyte mean 30.2 PG 27.0-35. [facility] - corpuscular 0 Good hemoglobin [facility] [Entitic mass] [facility] by Automated count Erythrocyte mean 33.6 30.7-37. [facility] - corpuscular g/dL 3 Good hemoglobin [facility] concentration [facility] [Mass/volume] by Automated count Erythrocyte 12.5 % 11.5-14. [facility] - distribution 0 Good width [Ratio] by [facility] count [facility] Platelets 189 K/uL 130-400 [facility] - [#/volume] in Good Blood by [facility] Platelet mean 9.0 FL 9.2-11.8 Below low normal [facility] - volume [Entitic Good volume] in Blood [facility] by Automated Hospital count Nucleated 0.0 PER 0 [facility] - erythrocytes/100 100 WBC Good leukocytes [facility] [Ratio] in Blood Hospital Nucleated 0.00 0.0-0.01 [facility] - erythrocytes K/uL Good [#/volume] in [facility] Segmented 59 % 48.0-72. [facility] - neutrophils/100 0 Good leukocytes in [facility] Lymphocytes/100 29 % 18.0-40. [facility] - leukocytes in 0 [facility] Monocytes/100 7 % 2.0-12.0 [facility] - leukocytes in [facility] Eosinophils/100 5 % 0.0-7.0 [facility] - leukocytes in [facility] Basophils/100 1 % 0.0-3.0 [facility] - leukocytes in [facility] Immature 0 % 0-0.5 [facility] - granulocytes/100 Good leukocytes in [facility] Blood by Hospital Automated count Segmented 4.6 K/UL 2.3-7.6 [facility] - neutrophils Good [#/volume] in [facility] Lymphocytes 2.2 K/UL 0.9-4.2 [facility] - [#/volume] in [facility] Monocytes 0.5 K/UL 0.1-1.7 [facility] - [#/volume] in [facility] Eosinophils 0.4 K/UL 0.0-1.0 [facility] - [#/volume] in [facility] Basophils 0.1 K/UL 0.0-0.4 [facility] - [#/volume] in [facility] Immature 0.0 K/UL 0.0-0.17 [facility] - granulocytes Good [#/volume] in [facility] Blood by Hospital Automated count Differential [facility] - cell count Good method [facility] Procedure Social History Code Duration Value Status Description Data Source(s ) Alcohol intake 01/08/2020 Current completed Current [facility] 12:00:00 AM EDT non-drinker non-drinker of [facility] of alcohol alcohol (finding) [facility] [employer] (finding) Tobacco use and 01/08/2020 Never used completed Never used [facility] exposure 12:00:00 AM EDT [employer] Smoking 01/08/2020 Never smoker completed Never smoker [facility] 12:00:00 AM EDT [employer] Alcohol intake 12/25/2019 Current completed Current [facility] 12:00:00 AM EDT non-drinker non-drinker of [employer] of alcohol alcohol (finding) [employer] (finding) Tobacco use and 12/25/2019 Never used completed Never used [facility] exposure 12:00:00 AM EDT [employer] Smoking 12/25/2019 Never smoker completed Never smoker [facility] 12:00:00 AM EDT [employer] Alcohol intake 12/12/2019 Current completed Current [facility] 12:00:00 AM EDT non-drinker non-drinker of [employer] alcohol alcohol (finding) [employer] (finding) Smoking 12/12/2019 Never smoker completed Never smoker [facility] 12:00:00 AM EDT [employer] Alcohol intake 12/05/2019 Current completed Current [facility] 12:00:00 AM EDT non-drinker non-drinker of [employer] alcohol alcohol (finding) [employer] (finding) Tobacco use and 12/05/2019 Never used completed Never used [facility] exposure 12:00:00 AM EDT [employer] Smoking 12/05/2019 Never smoker completed Never smoker [facility] 12:00:00 AM EDT [employer] Alcohol intake 12/01/2019 Current completed Current [facility] 12:00:00 AM EDT non-drinker non-drinker of [employer] of alcohol alcohol (finding) [employer] (finding) Smoking 12/01/2019 Never smoker completed Never smoker [facility] 12:00:00 AM EDT [employer] Alcohol intake 11/14/2019 Current completed Current [facility] 12:00:00 AM EDT non-drinker non-drinker of [employer] of alcohol alcohol (finding) [employer] (finding) Smoking 11/14/2019 Never smoker completed Never smoker [facility] 12:00:00 AM EDT [employer] Alcohol intake 11/10/2019 Current completed Current [facility] 12:00:00 AM EDT non-drinker non-drinker of [employer] alcohol (finding) [employer] (finding) Smoking 11/10/2019 Never smoker completed Never smoker [facility] 12:00:00 AM EDT [employer] Alcohol intake 09/06/2019 Current completed Current [facility] 12:00:00 AM EDT non-drinker non-drinker of [employer] alcohol alcohol (finding) [employer] (finding) Smoking 09/06/2019 Never smoker completed Never smoker [facility] 12:00:00 AM EDT [employer] Alcohol intake 08/16/2019 Current completed Current [facility] 12:00:00 AM EST non-drinker non-drinker of [employer] alcohol (finding) [employer] (finding) Smoking 08/16/2019 Never smoker completed Never smoker [facility] 12:00:00 AM EST [employer] Alcohol intake 08/10/2019 Current completed Current [facility] 12:00:00 AM EST non-drinker non-drinker of [employer] alcohol alcohol (finding) [employer] (finding) Smoking 08/10/2019 Never smoker completed Never smoker [facility] 12:00:00 AM EST [employer] Alcohol intake 07/21/2019 Current completed Current [facility] 12:00:00 AM EST non-drinker non-drinker of [employer] alcohol (finding) [employer] (finding) Smoking 07/21/2019 Never smoker completed Never smoker [facility] 12:00:00 AM EST [employer] Vital Signs ID Date Data Source UNK Name Value Range Interpretation Code Description Data Source(s) Oxygen saturation 98 % 98 % [facility] in Arterial blood [employer] by [employer] [facility] [employer] Body mass index 48.95 kg/m2 48.95 kg/m2 [facility] (BMI) [Ratio] [email or web address] [facility] [employer] Body weight 136.533 kg 136.533 kg [facility] [employer] Body height 167 cm 167 cm [facility] [employer] Respiratory rate 12 /min 12 /min [facility] [facility] [employer] Body temperature 36.56 May 36.56 May [facility] [employer] [facility] [employer] Heart rate 102 /min 102 /min [facility] [employer] [facility] [employer] Diastolic blood 60 mm[Hg] 60 mm[Hg] [facility] pressure [employer] Systolic blood 100 mm[Hg] 100 mm[Hg] [facility] pressure [employer] Diastolic blood 80 mm[Hg] 80 mm[Hg] [facility] pressure [employer] Systolic blood 122 mm[Hg] 122 mm[Hg] [facility] pressure [employer] Respiratory rate 20 /min 20 /min [facility] [employer] [facility] Heart rate 70 /min 70 /min [employer] [facility] Diastolic blood 70 mm[Hg] 70 mm[Hg] [facility] pressure [employer] Systolic blood 124 mm[Hg] 124 mm[Hg] [facility] pressure [employer] Respiratory rate 18 /min 18 /min [facility] [employer] [facility] Body temperature 36.56 May 36.56 May [facility] [employer] Heart rate 88 /min 88 /min [employer] Diastolic blood 86 mm[Hg] 86 mm[Hg] [facility] pressure [employer] Systolic blood 110 mm[Hg] 110 mm[Hg] [facility] pressure [employer] Oxygen saturation 98 % 98 % [facility] in Arterial blood [employer] by Pulse [employer] [facility] [employer] Body mass index 47.98 kg/m2 47.98 kg/m2 [facility] (BMI) [Ratio] [facility] Body weight 133.811 kg 133.811 kg [facility] [employer] Body height 167 cm 167 cm [facility] [employer] Respiratory rate 12 /min 12 /min [facility] [employer] Body temperature 36.67 May 36.67 May [facility] [employer] Heart rate 100 /min 100 /min [employer] Diastolic blood 66 mm[Hg] 66 mm[Hg] [facility] pressure [employer] Systolic blood 102 mm[Hg] 102 mm[Hg] [facility] pressure [employer] Respiratory rate 20 /min 20 /min [facility] [employer] Heart rate 70 /min 70 /min [facility] Diastolic blood 68 mm[Hg] 68 mm[Hg] [facility] pressure [employer] [facility] [employer] Systolic blood 120 mm[Hg] 120 mm[Hg] [facility] pressure [employer] Respiratory rate 18 /min 18 /min [facility] [employer] [facility] [employer] Heart rate 68 /min 68 /min [facility] [employer] [facility] [employer] Diastolic blood 68 mm[Hg] 68 mm[Hg] [facility] pressure [employer] [facility] [employer] Systolic blood 112 mm[Hg] 112 mm[Hg] [facility] pressure [employer] Respiratory rate 20 /min 20 /min [facility] [employer] [facility] [employer] Body temperature 36.56 May 36.56 May [facility] [employer] Heart rate 92 /min 92 /min [employer] Diastolic blood 70 mm[Hg] 70 mm[Hg] [facility] pressure [employer] Systolic blood 110 mm[Hg] 110 mm[Hg] [facility] pressure [employer] Respiratory rate 20 /min 20 /min [facility] [employer] [facility] [employer] Heart rate 68 /min 68 /min [employer] [facility] [employer] Diastolic blood 72 mm[Hg] 72 mm[Hg] [facility] pressure [employer] Systolic blood 112 mm[Hg] 112 mm[Hg] [facility] pressure [employer] Respiratory rate 20 /min 20 /min [facility] [employer] [facility] [employer] Heart rate 82 /min 82 /min [employer] Diastolic blood 66 mm[Hg] 66 mm[Hg] [facility] pressure [employer] Systolic blood 110 mm[Hg] 110 mm[Hg] [facility] pressure [employer] Respiratory rate 14 /min 14 /min [facility] [employer] [facility] [employer] Body temperature 36.89 May 36.89 May [facility] [employer] [facility] [employer] Heart rate 72 /min 72 /min [employer] Diastolic blood 74 mm[Hg] 74 mm[Hg] [facility] Systolic blood 128 mm[Hg] 128 mm[Hg] [facility] pressure [employer] Respiratory rate 20 /min 20 /min [facility] [employer] [facility] [employer] Heart rate 68 /min 68 /min [facility] Diastolic blood 64 mm[Hg] 64 mm[Hg] [facility] pressure [employer] Systolic blood 108 mm[Hg] 108 mm[Hg] [facility] pressure [employer] Respiratory rate 18 /min 18 /min [facility] [employer] Heart rate 80 /min 80 /min [email or web address] Diastolic blood 70 mm[Hg] 70 mm[Hg] [facility] pressure [employer] Systolic blood 98 mm[Hg] 98 mm[Hg] [facility] pressure [employer] Respiratory rate 20 /min 20 /min [facility] [employer] [facility] Body temperature 36.56 May 36.56 May [facility] [employer] [facility] Heart rate 78 /min 78 /min [employer] [facility] Diastolic blood 60 mm[Hg] 60 mm[Hg] [facility] pressure [employer] [facility] Systolic blood 110 mm[Hg] 110 mm[Hg] [facility] pressure [employer] [facility] Body mass index 48.95 kg/m2 48.95 kg/m2 [facility] (BMI) [Ratio] [employer] [facility] Body weight 136.533 kg 136.533 kg [employer] Respiratory rate 18 /min 18 /min [facility] [employer] Body temperature 36.56 May 36.56 May [facility] [employer] [facility] Heart rate 80 /min 80 /min [employer] Diastolic blood 70 mm[Hg] 70 mm[Hg] [facility] pressure [employer] Systolic blood 128 mm[Hg] 128 mm[Hg] [facility] pressure [employer] Oxygen saturation 98 % 98 % [facility] in Arterial blood [employer] [facility] [employer] [facility] [employer] Body mass index 48.95 kg/m2 48.95 kg/m2 [facility] (BMI) [Ratio] [employer] Body weight 136.533 kg 136.533 kg [employer] Body height 167 cm 167 cm [employer] Respiratory rate 14 /min 14 /min [facility] [employer] Body temperature 36.44 May 36.44 May [facility] [employer] Heart rate 98 /min 98 /min [facility] [employer] Diastolic blood 60 mm[Hg] 60 mm[Hg] [facility] pressure [employer] Systolic blood 110 mm[Hg] 110 mm[Hg] [facility] pressure [employer] Oxygen saturation 96 % 96 % [facility] in Arterial blood [employer] [facility] [employer] Respiratory rate 18 /min 18 /min [facility] [employer] Body temperature 36.72 May 36.72 May [facility] [employer] Heart rate 80 /min 80 /min [facility] [employer] Diastolic blood 88 mm[Hg] 88 mm[Hg] [facility] pressure [employer] Systolic blood 128 mm[Hg] 128 mm[Hg] [facility] pressure [employer] Body mass index 48.97 kg/m2 48.97 kg/m2 [facility] (BMI) [Ratio] [employer] [facility] Body weight 136.578 kg 136.578 kg [employer] Body height 167 cm 167 cm [employer] Oxygen saturation 98 % 98 % [facility] in Arterial blood [employer] [facility] [employer] [facility] [employer] Body mass index 48.30 kg/m2 48.30 kg/m2 [facility] (BMI) [Ratio] [employer] Body weight 134.718 kg 134.718 kg [employer] Body height 167 cm 167 cm [employer] Respiratory rate 14 /min 14 /min [facility] [employer] Body temperature 37.33 May 37.33 May [facility] [employer] Heart rate 100 /min 100 /min [employer] Diastolic blood 68 mm[Hg] 68 mm[Hg] [facility] pressure [employer] Systolic blood 118 mm[Hg] 118 mm[Hg] [facility] pressure [employer] Oxygen saturation 98 % 98 % [facility] in Arterial blood [employer] [facility] [employer] Body mass index 47.49 kg/m2 47.49 kg/m2 [facility] (BMI) [Ratio] [employer] Body weight 132.45 kg 132.45 kg [employer] Body height 167 cm 167 cm [facility] Respiratory rate 12 /min 12 /min [facility] [employer] Body temperature 36.44 May 36.44 May [facility] [employer] Heart rate 88 /min 88 /min [facility] Diastolic blood 70 mm[Hg] 70 mm[Hg] [facility] pressure [employer] Systolic blood 102 mm[Hg] 102 mm[Hg] [facility] pressure [employer] Oxygen saturation 92 % 92 % [facility] in Arterial blood [facility] [employer] Body mass index 45.86 kg/m2 45.86 kg/m2 [facility] (BMI) [Ratio] [employer] Body weight 133.811 kg 133.811 kg [employer] Body height 170.8 cm 170.8 cm [employer] Respiratory rate 12 /min 12 /min [facility] [employer] Body temperature 36.67 May 36.67 May [facility] [employer] Heart rate 88 /min 88 /min [employer] Diastolic blood 80 mm[Hg] 80 mm[Hg] [facility] pressure [employer] Systolic blood 120 mm[Hg] 120 mm[Hg] [facility] s pressure [employer] Oxygen saturation 95 % 95 % [facility] in Arterial blood [facility] [employer] [employer] Respiratory rate 18 /min 18 /min [facility] [employer] Body temperature 36.44 May 36.44 May [facility] [employer] [facility] [employer] Heart rate 100 /min 100 /min [employer] Diastolic blood 80 mm[Hg] 80 mm[Hg] [facility] pressure [employer] [facility] [employer] Systolic blood 123 mm[Hg] 123 mm[Hg] [facility] pressure [employer] [facility] [employer] Body mass index 46.99 kg/m2 46.99 kg/m2 [facility] (BMI) [Ratio] [employer] Body weight 136.079 kg 136.079 kg [facility] [employer] Body height 170.2 cm 170.2 cm [employer] Oxygen saturation 96 % 96 % [facility] in Arterial blood [facility] [employer] [employer] Body mass index 45.55 kg/m2 45.55 kg/m2 [facility] (BMI) [Ratio] [employer] Body weight 132.904 kg 132.904 kg Bon [employer] Body height 170.8 cm 170.8 cm [facility] [employer] Respiratory rate 14 /min 14 /min [facility] [employer] [facility] [employer] Body temperature 35.89 May 35.89 May [facility] [employer] [facility] [employer] Heart rate 96 /min 96 /min [employer] Diastolic blood 78 mm[Hg] 78 mm[Hg] [facility] pressure [employer] Systolic blood 116 mm[Hg] 116 mm[Hg] [facility] pressure [employer] Oxygen saturation 92 % 92 % [facility] in Arterial blood [facility] [employer] [employer] [facility] [employer] Respiratory rate 15 /min 15 /min [facility] [employer] Heart rate 96 /min 96 /min [employer] Diastolic blood 86 mm[Hg] 86 mm[Hg] [facility] pressure [employer] Systolic blood 121 mm[Hg] 121 mm[Hg] [facility] s pressure [employer] Body mass index 40.18 kg/m2 40.18 kg/m2 [facility] (BMI) [Ratio] [employer] [facility] Body weight 127.007 kg 127.007 kg [facility] [employer] Body height 177.8 cm 177.8 cm [facility] [employer] Body temperature 36.72 May 36.72 May [facility] [employer] [facility] [employer] Body temperature 36.33 May 36.33 May [facility] [employer] Oxygen saturation 96 % 96 % [facility] in Arterial blood [facility] [employer] Respiratory rate 21 /min 21 /min [facility] [employer] [facility] [employer] Heart rate 85 /min 85 /min Bon [employer] Diastolic blood 88 mm[Hg] 88 mm[Hg] [facility] pressure [employer] [facility] [employer] Systolic blood 155 mm[Hg] 155 mm[Hg] [facility] s pressure [employer] Body mass index 40.18 kg/m2 40.18 kg/m2 [facility] (BMI) [Ratio] [employer] Body weight 127.007 kg 127.007 kg Bon [employer] Body height 177.8 cm 177.8 cm [facility] [employer] Oxygen saturation 98 % 98 % [facility] in Arterial blood [employer] [employer] [employer] [facility] [employer] Body mass index 44.66 kg/m2 44.66 kg/m2 [facility] (BMI) [Ratio] [employer] [facility] Body weight 128.368 kg 128.368 kg Bon [employer] Body height 169.5 cm 169.5 cm [facility] [employer] Respiratory rate 12 /min 12 /min [facility] [employer] Body temperature 36.28 May 36.28 May [facility] [employer] Heart rate 68 /min 68 /min [employer] Diastolic blood 80 mm[Hg] 80 mm[Hg] [facility] pressure [employer] Systolic blood 122 mm[Hg] 122 mm[Hg] [facility] s pressure [employer] [facility] Patient Treatment Plan of Care Planned Activity Planned Date Details Description Data Source (s) Propranolol Hydrochloride 01/08/2020 [facility] 10 MG Oral Tablet 12:00:00 AM [employer] [facility] Clonazepam 0.5 MG Oral 12/25/2019 [facility] Tablet 12:00:00 AM [employer] [facility] [facility] [employer] Ibuprofen 200 MG Oral 12/22/2019 [facility] Tablet 12:00:00 AM [employer] olanzapine 5 MG Oral Tablet 12/09/2019 [facility] 09:00:00 AM EDT [facility] Olmesartan medoxomil 20 MG 12/09/2019 [facility] Oral Tablet 12:00:00 AM EDMobile Card [facility] [employer] olanzapine 5 MG Oral Tablet 12/09/2019 [facility] 12:00:00 AM [facility]Mobile Card [facility] Losartan Potassium 50 MG 12/09/2019 [facility] Oral Tablet 12:00:00 AM EDT [facility] Clonazepam 0.5 MG Oral 12/08/2019 [facility] Tablet 12:00:00 AM [employer]Mobile Card [facility] Risperidone 2 MG Oral 12/04/2019 [facility] Tablet 12:00:00 AM EDT [facility] Box Elder Carbonate 300 MG 11/30/2019 [facility] [...] Bela Release Oral Tablet 12:00:00 AM EDT [facility] Bisacodyl 5 MG Delayed 10/31/2019 [facility] Release Oral Tablet 01:50:17 PM EDT [facility] Acetaminophen 325 MG Oral 10/29/2019 [facility] Tablet 02:44:40 PM EDT [facility] sodium chloride (NS) flush 10/29/2019 [facility] 5-40 mL 11:01:53 AM EDT [facility] 24 HR Bupropion 10/17/2019 [facility] Hydrochloride 150 MG 12:00:00 AM EDT [facility] Extended Release Oral Tablet 24 HR Bupropion 10/17/2019 [facility] Hydrochloride 300 MG 12:00:00 AM EDT [employer] [facility] Extended Release Oral Tablet Vraylar 3 mg capsule 09/03/2019 [facility] 12:00:00 AM EDT [facility] Amitriptyline Hydrochloride 08/20/2019 [facility] 150 MG Oral Tablet 12:00:00 AM EST [facility] [employer] Carbonate 150 MG 08/16/2019 [facility] Oral Capsule 12:00:00 AM EST [facility] Prednisone 50 MG Oral 08/16/2019 [facility] Tablet 12:00:00 AM EST [employer] [facility] [employer] Cyclobenzaprine 07/21/2019 [facility] hydrochloride 10 MG Oral 12:00:00 AM EST [facility] Tablet Acetaminophen 325 MG / 07/21/2019 [facility] Oxycodone Hydrochloride 5 12:00:00 AM EST [facility] MG Oral Tablet VRAYLAR 6 mg capsule 07/07/2019 [facility] 12:00:00 AM EST [facility] valacyclovir 1000 MG Oral 07/17/2018 Francisco Javier n [facility] Tablet 12:00:00 AM EST [facility] Clonazepam 2 MG Oral Tablet Bon [facility] cariprazine (Vraylar) 6 mg [facility] 24 HR Bupropion Bon [facility] Hydrochloride 300 MG [facility] Extended Release Oral Tablet fluoxetine HCl (PROZAC PO) B on [facility] ziprasidone 80 MG Oral Bon [facility]
[2020-04-12] MEDS ORDERED: SUCCINYLCHOLINE CHLORIDE 200 MG/10 ML SYRINGE ONE (08:06)
[2020-04-12] MEDS ORDERED: PROPOFOL 20 ML ONE (08:06)
[2020-04-12] MEDS ORDERED: DEXTROSE 50%-WATER 25 GM/50 ML DISP.SYRIN ONE (08:06)
[2020-04-12] MEDS ORDERED: ONDANSETRON 4 MG/2 ML VIAL ONE (08:06)
[2020-04-12] MEDS ORDERED: KETOROLAC TROMETHAMINE 30 MG/1 ML VIAL ONE (08:20)
[2020-04-12] MEDS ORDERED: KETAMINE HCL 200 MG/20 ML VIAL ONE (08:21)
[2020-04-12 09:07] VITALS: TEMP 98.3
[2020-04-12 09:22] VITALS: BP 105/65; PULSE 77
[2020-04-12] MEDS ORDERED: oxyCODONE HCL 5 MG TABLET PO PRN (10:18)
[2020-04-12] MEDS ORDERED: ACETAMINOPHEN 325 MG TABLET (FP) PO PRN (10:18)
[2020-04-12] MEDS ORDERED: ONDANSETRON 4 MG/2 ML VIAL IVPUSH PRN (10:18)
[2020-04-12] MEDS ORDERED: LACTATED RINGERS SOLUTION 1,000 ML IV SCH (10:30)
== END 2020-04-12 09:45 | disposition home or self-care (01) ==
LOC: FECT 06:11
PROVIDERS: ATTEND Psychiatry & Neurology Psychiatry
PROC: GZB4ZZZ Other Electroconvulsive Therapy (ICD-10-PCS; principal; 2020-04-12 09:00)
DX: F32.9 Major depressive disorder, single episode, unspecified (principal)
CPT/HCPCS: 90870; 94760; C9803; U0003

== ENCOUNTER 2020-04-15 06:16 | Day surgery (SDC) | payer OTHER ==
--- OUTSIDE RECORDS SUMMARY | 2020-04-09 11:42 | XMS ---
:1970 Author Organization [facility] Care Team Providers Name Role Phone [...] is protected by Article 27-F of the [place] State Public Health law. If you continue you may haveaccess to information: Regarding HIV / AIDS; Provided by facilities licensed or operated by the [place] Office of Mental Health; or Provided by the [place] Office for People With Developmental Disabilities. If such information is present, then the following [place] mandated warning applies: This information has been [...] S ecours Bela PM EDT - 01/12/2020 [facility] 10:23:35 AM EDT Patient discharged. Attender: MARIYA CATHERINE 01/01/2020 12:00:00 AM Bon [facility] Attender: MAURICIO 12/30/2019 12:00:00 AM [facility] Attender: MARIYA CATHERINE 12/29/2019 12:00:00 AM [facility] 12/25/2019 04:00:00 PM [facility] 06:48:40 [facility] PM EDT Patient discharged. OL 12/25/2019 [facility] 11:59:00 PM EDT Attender: MARIYA 12/25/2019 12:00:00 AM Bon [facility] Attender: SUSI LONGO 12/25/2019 12:00:00 AM Bon [facility] Attender: MAURICIO 12/24/2019 12:00:00 AM Bon [facility] Attender: MARIYA 12/22/2019 12:00:00 AM Bon [facility] Attender: SUSI LONGO 12/22/2019 12:00:00 AM Bon [facility] Attender: MAURICIO 12/19/2019 12:00:00 AM Bon [facility] Attender: MARIYA 12/18/2019 12:00:00 AM Bon [facility] Attender: GLADIS FUNEZ 12/18/2019 12:00:00 AM Bon [facility] Attender: SUSI LONGO 12/17/2019 12:00:00 AM [facility] Attender: MAURICIO 12/16/2019 12:00:00 AM Bon [facility] Attender: MARIYA 12/15/2019 12:00:00 AM [facility] Attender: XANDER COLBERT 12/13/2019 12:00:00 AM Bon [facility] Outpatient 12/12/2019 12:00:00 PM Francisco Javier n [facility] EDT - 12/12/2019 [facility] 01:20:23 PM EDT Patient discharged. Attender: ROSSI 12/08/2019 05:55:36 [facility] - 01/02/2020 [facility] 12:00:00 AM EDT System In c Inpatient Admitter: RITIKA 12/05/2019 12:00:00 [facility] - 12/08/[address] [facility] 03:44:00 PM EDT General Weakness Patient discharged. Outpatient 12/05/2019 12:00:00 AM EDT [facility] Outpatient 12/01/2019 03:45:00 PM EDT - [facility] 12/01/2019 05:01:16 PM EDT Inc Patient discharged. Outpatient 11/14/2019 01:00:00 PM EDT - [facility] 11/18/2019 11:56:43 AM EDT System Inc Patient discharged. Outpatient 11/10/2019 09:00:00 AM EDT - [facility] 11/10/2019 04:44:05 PM EDT System Inc Patient discharged. Inpatient Admitter: RITIKA CANAS 10/29/2019 12:00:00 AM let hargic [facility] EDT - 11/03/2019 [facility] 04:02:00 PM EDT lethargic Patient discharged. Outpatient 09/15/2019 08:22:58 AM EDT [facility] - 09/15/2019 11:59:00 PM Hospital EDT Outpatient 09/10/2019 04:00:00 PM EDT [facility] Outpatient 09/04/2019 03:15:00 PM EDT [facility] Outpatient 08/19/2019 07:31:00 AM EST [facility] ([facility]) Outpatient 08/18/2019 06:35:00 AM EST [facility] ([facility]) Outpatient 08/17/2019 07:16:00 AM EST [facility]EXTGEN ([facility]) Emergency 08/16/2019 12:00:00 AM EST Shortness of Breath [facility] - 08/16/2019 10:45:00 PM Hospital EST Shortness of Breath Patient discharged. Outpatient 08/11/2019 12:05:00 AM EST [facility] Emergency 08/10/2019 12:00:00 AM EST - Chest P ain [facility] 08/11/2019 01:42:00 AM EST Hospital Chest Pain Patient discharged. Outpatient 07/21/2019 04:15:00 PM EST - [facility] [employer] [facility] 07/22/2019 10:51:43 AM EST System Inc Patient discharged. Immunizations Vaccine Date Status Description Data Source(s) New in 2012. 09/04/2019 completed Influenza Vaccine 09/04/2019 [facility] IIV4 12:00:00 AM EDT (Quad) [facility] Medications Medication Brand Start Product Dose Route Administrative Pharm[facility] Indications Reaction Description Data Name [...] Tablet tablet 5 mg EDT dose (after [facility] OLANZapine [facility] (ZyPREXA) modification) S ystem tablet 5 mg on Tue Inc 12/09/19 at 0900, Until Discontinued Medication administered onsite Olmesartan olmesartan 12/09/2019 20 Oral completed h ypertension Take 1 Tab by Bon medoxomil (BENICAR) 12:00:00 AM mg paul th daily [facility] 20 MG Oral 20 mg EDT for 30 days. Bela Tablet tablet Indications: [facility] olmesartan high blood Sys tem (BENICAR) pressure Inc 20 mg tablet hypertension Losartan losartan 12/09/2019 50 Oral active hypertension Take 1 Tab by Bon Potassium (COZAAR) 12:00:00 AM mg mout h daily [facility] 50 MG Oral 50 mg EDT for 30 days. Bela Tablet tablet Indications: [facility] losartan high blood Syste m (COZAAR) [...] by [facility] Tablet 0.5 mg EDT mouth Beal clonazePAM tablet three Health (KlonoPIN) (3) System [...] doses, Ch arity clonazePAM mg First dose [facility] (KlonoPIN) (after last Sy stem tablet 0.5 modification) Inc mg on 12/07/19 at 1600, Last dose on Denise 12/11/19 at 0900 Medication administered onsite olanzapine OLANZapine 12/07/2019 2.5 Oral aborted 2.5 mg, Oral, Bon 2.5 MG Oral (ZyPREXA) 02:00:00 PM mg D AILY, [facility] Tablet tablet 2.5 EDT dose on Sun Bela OLANZapine mg 12/07/19 at [facility] (ZyPREXA) 1400, Until Sys tem tablet 2.5 Discontinued I nc mg Medication administered onsite [place] lithium 12/07/2019 300 Oral active 300 mg , Oral, Bon Carbonate carbonate SR 02:00:00 PM mg 2 TIMES DAILY, [facility] 300 MG (LITHOBID) EDT First dose o n Bela Extended tablet 300 Sun 0 at [facility] Release Oral mg 1400, Until System Tablet Discontinued Inc lithium carbonate SR (LITHOBID) tablet 300 mg Medication administered onsite Losartan losartan 12/07/2019 50 Oral active 50 m g, Oral, Bon Potassium 50 (COZAAR) 01:00:00 PM mg D AILY, [facility] MG Oral tablet 50 EDT dose on Sun Bela Tablet mg 12/07/19 at [facility] losartan 1300, Until Syst em (COZAAR) Discontinued Inc tablet 50 mg Medication administered onsite furosemide 58712-125-18 12/07/2019 20 IntraVENous complete d 20 mg, [...] 12/13/19 at 0900 Medication administered onsite furosemide 56686-503-32 12/06/2019 20 IntraVENous complete d edema 20 [...] il mg Discontinued Medication administered onsite 0.9% 2807-2002-61 12/05/2019 100 IntraVENous aborted 100 mL/hr, at [...] mg tablet Inc Shared psychotic disorder (HCC) [place] lithium 11/30/2019 aborted Bon Carbonate 300 carbonate [...] (DULCOLAX) 5 Inc mg EC tablet cariprazine [id number] 11/01/2019 6 mg Oral active 6 m [...] Ointment ointment EDT Firs t dose on [facility] hydrocortisone 11/01/19 at [facility] (HYTONE) 2.5 % 1800, Unti l System ointment Discontinued Inc Medication administered onsite Docusate docusate 10/31/2019 200 Oral active 200 mg, Oral, Bon Sodium 100 sodium 02:00:00 PM mg DAILY , [facility] MG Oral (COLACE) EDT dose on Sun C harity Capsule capsule 200 10/31/19 at [facility] docusate mg 1400, Until Syst [...] haloperidoL tablet 5 mg EDT ONCE, 1 [facility] (HALDOL) dose, [facility] tablet 5 mg Denise System 10/30/19 [facility] at 2100 Medication administered onsite amitriptyline 10/30/2019 150 mg Oral active 1 50 mg, Oral, Bon (ELAVIL) tablet 09:00:00 PM EV AN BEDTIME, [facility] 150 mg EDT First dose on [facility] ity Denise 10/30/19 at [facility] 2100, Until System I nc Discontinued Medication administered onsite Haloperidol 2 haloperidoL 10/30/2019 2 mg Oral aborted 2 mg, Oral, Bon MG Oral (HALDOL) 08:01:20 PM EVERY 6 [facility] Tablet tablet 2 mg EDT HOURS Ch arity haloperidoL NEEDED, Healt h (HALDOL) Starting Denise Sys tem tablet 2 mg 10/30/19 at [facility] 2000, Until Sun10/31/19 at 2043, Psychosis, Agitation Medication administered onsite [place] lithium 10/30/2019 300 Oral active 300 mg , Oral, Bon Carbonate carbonate 12:00:00 PM mg 2 T IMES DAILY, [facility] 300 MG Oral tablet 300 EDT First d ose on Bela Tablet mg Denise 10/30/19 at [facility] lithium 1200, Until Syste m carbonate Discontinued In c tablet 300 mg Medication administered onsite Clonazepam 1 clonazePAM 10/30/2019 1 mg Oral active 1 mg, Oral, 2 Bon MG Oral (KlonoPIN) 12:00:00 PM TIME S DAILY, [facility] Tablet tablet 1 mg EDT First dose on Bela clonazePAM Denise 10/30/19 at [facility] (KlonoPIN) 1200, Until Sy stem tablet 1 mg Discontinued [facility] Medication administered onsite 0.9% 8013-1587-39 10/29/2019 100 IntraVENous aborted 100 mL/hr, at Bon sodium 02:55:00 PM mL/h 100 mL/hr, [facility] chloride EDT IntraVENous, Jagruti rity infusion CONTINUOUS, Starting Wed System 10/29/19 at [facility] 1455, Until 11/01/19 at 1446 Medication administered onsite 0.4 ML enoxaparin 10/29/2019 40 SubCUTAneous active 40 mg, Bon Enoxaparin (LOVENOX) 02:55:00 PM mg Gallardo bCUTAneous, [facility] sodium 100 injection 40 EDT EVERY 24 Bela MG/ML mg HOURS, First [facility] Prefilled dose on Sun Sys tem Syringe 10/29/19 at [facility] enoxaparin 1455, Until (LOVENOX) Discontinued injection 40 mg Medication administered onsite Acetaminophen acetaminophen 10/29/2019 650 Oral active 650 mg, Oral, Bon 325 MG Oral (TYLENOL) 02:44:40 PM mg E VERY 4 HOURS [facility] Tablet tablet 650 mg EDT NEEDED , Bela acetaminophen Starting We [facility] (TYLENOL) 10/29/19 at [facility] tablet 650 mg 1444, Until [facility] Discontinued, Mild Pain, Fever Medication administered onsite sodium 41954-488-39 10/29/2019 mL IntraVENous active 5-40 mL, Bon chloride 02:00:00 PM IntraVENo us, [facility] (NS) flush EDT EVERY 8 Charit y 5-40 mL HOURS, First dose on Wed System 10/29/19 at [facility] 1400, Until Discontinued Medication administered onsite sodium 15198-468-96 10/29/2019 mL IntraVENous active 5-40 mL, Bon [...] XL) 150 mg tablet Vraylar 3 mg 72509-521-32 09/03/2019 6 Oral aborted depre ssion Take [...] EST NOW, 1 Bela chewable tablet dose, [facility] 162 mg 08/16/19 System at 2103 Inc Medication administered onsite famotidine 08/16/2019 20 IntraVENous aborted 20 mg, Bon (PF) (PEPCID) 09:02:00 PM mg Intr aVENous, [facility] 20 mg in 0.9% EST EVERY 12 Ch arity sodium HOURS, First Healt h chloride 10 dose on [facility] ystem mL injection 08/16/19 at I nc 2102, Until Discontinued Medication administered onsite methylPREDNISolone [id number] 08/16/2019 125 IntraVENous comple hyun 125 mg, Bon (PF) (Solu-MEDROL) 09:02:00 PM mg IntraVENous, [facility] injection 125 mg EST NOW, 1 d ose, Bela 08/16/19 Health at 2102 System Inc Medication administered onsite 0.9% [id number] 08/16/2019 1000 IntraVENous completed 1,000 mL, at [...] mg tablet for 3 System days. Inc [place] lithium 08/16/2019 2 Oral active Take 2 [...] 162 mg Sun System 08/10/19 [facility] at 2352 Medication administered onsite Cyclobenzaprine [...] back pain due to trauma VRAYLAR 6 83173-578-33 07/07/2019 6 mg Oral aborted Bipolar Take [...] FOR 10 DAYS Herpes zoster cephalicus cariprazine 896629 6 mg Oral aborted Take 6 m g [facility] (Vraylar) 6 mg by mouth C harity capsule daily. Health System ADP ziprasidone 80 MG ziprasidone 80 mg Oral aborted Take 80 mg [facility] Oral Capsule (GEODON) 80 mg by mouth Bela ziprasidone capsule two (2) He alth (GEODON) 80 mg times Syst em Inc capsule daily (with meals). fluoxetine HCl 60 mg Oral aborted Take 6 0 mg [facility] (PROZAC PO) by mouth Moira ity daily. Health System ADP Clonazepam 2 MG clonazePAM 1 mg Oral [...] party's [place] Inform ation relationship to boland [facility] [id number] SP [id number] [facility] [id number] [facility] HEALTH PLAN [id number] [facility] HMO [id number] [employer] HEALTH PLAN Commerical [id number] [facility] [id number] PLAN [facility] [id number] 900 HEALTH PLAN [facility] [id number] PLAN [facility] [id number] 900 HEALTH PLAN POLO [id number] POLO [id number] [employer]IG[employer] PPO [id number] [facility] PPO [id number] PLAN [place] 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 [id number] COMPENSATION [facility] HEALTH PLAN O [id number] 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 [id number] COMPENSATION [facility] [id number] GENERIC [phone] [phone] COMMERCIAL [facility] [id number] PLAN [facility] GENERIC Commerical [id number] [facility] PPO [id number] PLAN [facility] [id number] PLAN 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 [id number] COMPENSATION [facility] [id number] [facility] HEALTH PLAN PPO [id number] [facility] Problems, Conditions, and Diagnoses Code Display Name Description Problem Type Effective Data Dates Source(s) T88.7XXA Tms-qnoe-fozgvyn Nur-zrbc-gunsyyw [id number] 12/05/2019 Francisco Javier n [facility] adverse reaction to adverse reaction to 12:00:0 0 AM Bela medication medication [facility] [employer] T50.905A Adverse drug Adverse drug [id number] 12/05/2019 [place] s reaction, initial reaction, initial 12:00:00 AM [facility] encounter encounter [facility] [employer] G93.40 Encephalopathy acute Encephalopathy acute [id number] 12/04 [facility] 12:00:00 AM Bela [employer] F31.4 Bipolar disorder with Bipolar disorder [id number] 10/29/19 20 [facility] severe depression with severe 12:00:00 AM [facility] depression [employer] E55.9 Vitamin D deficiency Vitamin D deficiency 51354223 09/03 [facility] 12:00:00 AM Bela [employer] F41.8 Mixed anxiety and Mixed anxiety and [id number] 09/04/2019 [facility] depressive disorder depressive disorder 12:00:0 0 AM [facility] E66.01 Morbid obesity Morbid obesity [id number] 07/21/2019 Bon Se cours 12:00:00 AM [facility] XOR.MOTORS [facility] Z98.84 Status post gastric Status post gastric [id number] 020 [facility] bypass for obesity bypass for obesity 12:00:00 AM [facility] F32.9 Depressive disorder Depressive disorder [id number] 020 [facility] 12:00:00 AM [facility] XOR.MOTORS [facility] F31.9 Bipolar disorder Bipolar disorder [id number] 07/21/2019 Francisco Javier n [facility] 12:00:00 AM [facility] F41.9 Anxiety Anxiety [id number] 07/21/2019 [facility] 12:00:00 AM [facility] XOR.MOTORS [facility] G25.2 Other specified forms Other specified Diagnosis 0 [facility] of tremor forms of tremor 03:17:29 PM [facility] F31.4 Bipolar disorder, Bipolar disorder, Diagnosis 12/25/2019 [facility] - Good current episode current episode 04:40:00 PM [facility] depressed, severe, depressed, severe, EDT Hospital without psychotic without psychotic features features F41.9 Anxiety disorder, Anxiety disorder, Diagnosis 12/25/2019 [facility] unspecified unspecified 04:04:24 PM [facility] R25.1 Tremor, unspecified Tremor, unspecified Diagnosis [facility] 04:04:24 PM [facility] Z98.84 Bariatric surgery Bariatric surgery Diagnosis 12/25/2019 [facility] status status 04:04:24 PM [facility] T88.7XXA Unspecified adverse Unspecified adverse Diagnosis [facility] - Good effect of drug or effect of drug or 11:10:37 AM [facility] medicament, initial medicament, initial EDT Hospital encounter encounter G93.40 Encephalopathy, Encephalopathy, Diagnosis 12/05/2019 [facility] - Good unspecified unspecified 11:10:37 AM [facility] R41.82 Altered mental Altered mental Diagnosis 12/05/2019 [facility] - Good status, unspecified status, unspecified 11:10:3 7 AM [facility] F51.04 Psychophysiologic Psychophysiologic Diagnosis 11/14/2019 [facility] insomnia insomnia 01:22:52 PM [facility] F32.2 Major depressive Major depressive Diagnosis 09/15/2019 [facility] Good disorder, single disorder, single 08:22:58 AM S amaritan episode, severe episode, severe EDT Hosp ital without psychotic without psychotic features features F41.8 Other specified Other specified Diagnosis 09/04/2019 [facility] anxiety disorders anxiety disorders 03:49:01 PM [facility] F32.2 Major depressive Major depressive Diagnosis 09/04/2019 Francisco Javier n [facility] disorder, single disorder, single 03:49:01 PM C harity episode, severe episode, severe EDT Heal th without psychotic without psychotic System Inc features features Z23 Encounter for Encounter for Diagnosis 09/04/2019 [facility] immunization immunization 03:49:01 PM [facility] T78.40XA Allergy, unspecified, Allergy, Diagnosis 08/16/2019 [facility] initial encounter unspecified, initial 08:39:[address] [facility] R06.00 Dyspnea, unspecified Dyspnea, unspecified Diagnosis 08/10 [facility] 11:27:27 PM [facility] F31.75 Bipolar disorder, in Bipolar disorder, in Diagnosis 07/21 [facility] partial remission, partial remission, 04:40:28 PM [facility] most recent episode most recent episode [facility] Surgeries/Procedures Procedure Description Date Indications Data Source(s) HC HC Routine 12/25/2019 Bipolar 12/25/2019 Bipolar Francisco Javier n LITHIUM LITHIUM 4:41 PM EDT disorder 04:41:00 PM disorde r [facility] with severe EDT with severe [facility] depression depression He alth (HCC) ([facility]) System Inc Bipolar disorder with severe depression ([facility]) GLUCOSE, POC GLUCOSE, POC Routine 12/08/2019 12/08/2019 Bon 11:35 AM 11:35:00 AM Sec ours EDUC [facility] METABOLIC METABOLIC Routine 12/07/2019 12/07/2019 Bon PANEL, BASIC PANEL, BASIC 4:40 AM EDT 04:40:00 A M [facility] EEG 12-26 HR EEG 12-26 HR Routine 12/06/2019 12/06/2019 Bon W/VIDEO W/VIDEO 10:25 AM 10:25:08 AM [facility] HC LITHIUM Routine 12/06/2019 12/06/2019 Bon 4:25 AM EDT [facility]:25:[facility] LACTIC ACID HC LACTIC ACID STAT 12/05/2019 020 Bon 7:20 PM EDT 07:20:[facility] HC AMMONIA HC AMMONIA STAT 12/05/2019 12/05/2019 Bon 7:20 PM EDT 07:20:00 PM [facility] BRAIN WO MRI BRAIN WO STAT 12/05/2019 12/05/2019 Bon CONT CONT 4:50 PM EDT 04:50:12 PM [facility] EEG 12-26 HR EEG 12-26 HR STAT 12/05/2019 12/05/2019 Bon W/VIDEO W/VIDEO 3:19 PM EDT 03:19:24 PM [facility] CULTURE, URINE CULTURE, URINE Routine 12/05/2019 020 Bon 2:45 PM EDT 02:45:00 PM [facility] URINALYSIS W/ URINALYSIS W/ STAT 12/05/2019 0 Bon RFLX RFLX 2:45 PM EDT 02:45:00 PM [facility] BILIRUBIN, BILIRUBIN, Routine 12/05/2019 12/05/2019 Bon CONFIRM CONFIRM 2:45 PM EDT 02:45:00 [facility] LACTIC ACID HC LACTIC ACID STAT 12/05/2019 020 Bon 12:40 PM 12:40:00 PM [facility] CULTURE HC CULTURE STAT 12/05/2019 12/05/2019 Bon BLOOD BLOOD 12:38 PM 12:38:00 PM Sec ours EDT EDT [facility] PROTHROMBIN PROTHROMBIN STAT 12/05/2019 12/05/2019 Bon TIME + INR TIME + INR 12:38 PM 12:38:00 PM [facility] EDT [facility] CBC WITH CBC WITH STAT 12/05/2019 12/05/2019 Bon AUTOMATED DIFF AUTOMATED DIFF 12:38 PM 12:38:00 PM [facility] EDT EDT [facility] HC TROPONIN I HC TROPONIN I STAT 12/05/2019 0 Bon QUANT QUANT 12:38 PM 12:38:00 PM Sec ours EDT EDT [facility] METABOLIC METABOLIC STAT 12/05/2019 12/05/2019 Bon PANEL, PANEL, 12:38 PM 12:38:00 PM Sec ours COMPREHENSIVE COMPREHENSIVE EDT EDT [facility] MAGNESIUM MAGNESIUM STAT 12/05/2019 12/05/2019 Bon 12:38 PM 12:38:00 PM Sec ours EDT EDT [facility] HC LITHIUM HC LITHIUM STAT 12/05/2019 12/05/2019 Bon 12:38 PM 12:38:00 PM Sec ours EDT EDT [facility] CT HEAD WO CT HEAD WO STAT 12/05/2019 12/05/2019 Bon CONT CONT 12:30 PM 12:30:54 PM Sec ours EDT EDT [facility] HC CULTURE HC CULTURE STAT 12/05/2019 12/05/2019 Bon BLOOD BLOOD 12:30 PM 12:30:00 PM Sec ours EDT EDT [facility] XR PELV AP XR PELV AP STAT 12/05/2019 12/05/2019 Bon ONLY ONLY 12:14 PM 12:14:58 PM Sec ours EDT EDT [facility] XR CHEST PORT XR CHEST PORT STAT 12/05/2019 0 Bon 12:14 PM 12:14:51 PM Sec ours EDT EDT [facility] RT--OXYGEN RT--OXYGEN STAT 12/05/2019 12/05/2019 Bon CANNULA CANNULA 11:20 AM 11:20:37 AM Sec ours EDT EDT [facility] EEG DIGITAL EEG DIGITAL Routine 12/05/2019 12/05/2019 Bon ANALYSIS ANALYSIS 11:10 AM 11:10:37 AM S [facility]ours EDT EDT [facility] CBC WITH CBC WITH STAT 10/30/2019 10/30/2019 Bon AUTOMATED DIFF AUTOMATED DIFF 6:40 AM EDT 06:40: 00 AM [facility] EDT [facility] METABOLIC METABOLIC STAT 10/30/2019 10/30/2019 Bon PANEL, BASIC PANEL, BASIC 6:40 AM EDT 06:40:00 A M [facility] EDT [facility] URINALYSIS W/ URINALYSIS W/ STAT 10/29/2019 0 Bon RFLX RFLX 6:34 PM EDT 06:34:00 PM [facility] MICROSCOPIC MICROSCOPIC EDT [facility] XR CHEST PORT XR CHEST PORT STAT 10/29/2019 0 Bon 12:09 PM 12:09:04 PM Sec ours EDT EDT [facility] CT HEAD WO CT HEAD WO STAT 10/29/2019 10/29/2019 Bon CONT CONT 11:47 AM 11:47:42 AM Sec ours EDT EDT [facility] HC GLUCOSE HC GLUCOSE Routine 10/29/2019 10/29/2019 Bon POCT POCT 11:26 AM 11:26:00 AM Sec ours EDT EDT [facility] PROTHROMBIN PROTHROMBIN STAT 10/29/2019 10/29/2019 Bon TIME + INR TIME + INR 10:45 AM 10:45:00 AM [facility] EDT EDT [facility] CBC WITH CBC WITH STAT 10/29/2019 10/29/2019 Bon AUTOMATED DIFF AUTOMATED DIFF 10:45 AM 10:45:00 AM [facility] EDT EDT [facility] HC PARTIAL HC PARTIAL STAT 10/29/2019 10/29/2019 Bon THROMBOPLASTIN THROMBOPLASTIN 10:45 AM 10:45:00 AM [facility] / PTT / PTT EDT EDT [facility] METABOLIC METABOLIC STAT 10/29/2019 10/29/2019 Bon PANEL, PANEL, 10:45 AM 10:45:00 AM Sec ours COMPREHENSIVE COMPREHENSIVE EDT EDT [facility] HC LITHIUM HC LITHIUM STAT 10/29/2019 10/29/2019 [facility] 10:45 AM 10:45:00 AM [facility] EDT EDT [facility] XR SPINE LUMB XR SPINE LUMB Routine [...] [facility] 9:00 PM EST 02:00:[address] [facility] I nc CBC WITH AUTOMATED CBC WITH STAT 08/16/2019 0 [facility] DIFF AUTOMATED DIFF 9:00 PM EST 02:00:[address] [facility] I nc TROPONIN I TROPONIN I STAT 08/16/2019 08/17/2019 [facility] 9:00 PM EST 02:00:[address] [facility] I nc METABOLIC PANEL, METABOLIC PANEL, STAT 08/16/2019 [facility] COMPREHENSIVE COMPREHENSIVE 9:00 PM EST 02:00:[address] [facility] I nc MAGNESIUM MAGNESIUM STAT 08/16/2019 08/17/2019 [facility] 9:00 PM EST 02:00:00 AM [facility] XOR.MOTORS [facility] I nc LITHIUM LITHIUM STAT 08/16/2019 08/17/2019 [facility] 9:00 PM EST 02:00:00 AM [facility] XOR.MOTORS [facility] I nc INFLUENZA A <td><content ID="[id number]">INFLUENZA A & B 07/26 [facility] & B AG AG (RAPID 05:18:00 [facility] (RAPID TEST) TEST)</content></td><td>STAT</td><td>08/11/2019 EST [facility] 12:18 AM EST</td><td></td><td><paragraph Health styleCode="header">Results for this procedure are System in the <content Inc styleCode="[id number]">results section</content>.</paragraph></td> PROTHROMBIN TIME + PROTHROMBIN TIME STAT 08/11/2019 0 08/11/2019 [facility] INR + INR 12:01 AM EST 05:01:[address] [facility] nc D DIMER D DIMER STAT 08/11/2019 08/11/2019 [facility] 12:01 AM EST 05:01:[address] [facility] nc CBC WITH AUTOMATED CBC WITH STAT 08/11/2019 0 [facility] DIFF AUTOMATED DIFF 12:01 AM EST 05:01:[address] [facility] nc PTT PTT STAT 08/11/2019 08/11/2019 [facility] 12:01 AM EST 05:01:[address] [facility] nc TROPONIN I TROPONIN I STAT 08/11/2019 08/11/2019 [facility] 12:01 AM EST 05:01:[address] [facility] nc METABOLIC PANEL, METABOLIC PANEL, STAT 08/11/2019 [facility] COMPREHENSIVE COMPREHENSIVE 12:01 AM EST 05:01:[address] [facility] nc MAGNESIUM MAGNESIUM STAT 08/11/2019 08/11/2019 [facility] 12:01 AM EST 05:01:[address] [facility] nc LITHIUM LITHIUM STAT 08/11/2019 08/11/2019 [facility] 12:01 AM EST 05:01:[address] [facility] nc LACTIC ACID LACTIC ACID STAT 08/11/2019 08/11/2019 [facility] 12:01 AM EST 05:01:[address] [facility] nc BNP BNP STAT 08/11/2019 08/11/2019 [facility] 12:01 AM EST 05:01:[address] [facility] nc RT--OXYGEN CANNULA RT--OXYGEN STAT 08/10/2019 020 [facility] CANNULA 11:51 PM EST 04:51:[address] [facility] nc EKG, 12 LEAD, EKG, 12 LEAD, STAT 08/10/2019 0 [facility] INITIAL INITIAL 10:14 PM EST 03:14:[address] [facility] I nc Results ID Date Data Source [id number] 04/05/2020 09:40:00 AM EDT [facility] Name Value Range Interpretation Description Data Sup porting Code Source(s) Document(s ) SARS [facility] coronavirus 2 RNA This lab was ordered by [facility] and reported by [facility]. ID Date Data Source [id number] 04/02/2020 09:00:00 AM EDT [facility] Name Value Range Interpretation Description Data Sup porting Code Source(s) Document(s ) SARS [facility] coronavirus 2 RNA This lab was ordered by [facility]oy [facility] and reported by [facility]. ID Date Data Source [id number] 03/29/2020 08:58:00 AM EDT [facility] Name Value Range Interpretation Description Data Sup porting Code Source(s) Document(s ) SARS [facility] coronavirus 2 RNA [facility] and reported by [facility]. ID Date Data Source [id number] 03/25/2020 09:42:00 AM EDT [facility] Name Value Range Interpretation Description Data Sup porting Code Source(s) Document(s ) SARS [facility] coronavirus 2 RNA This lab was ordered by [facility] and reported by [facility]. ID Date Data Source [id number] 03/22/2020 09:00:00 AM EDT [facility] Name Value Range Interpretation Description Data Sup porting Code Source(s) Document(s ) SARS [facility] coronavirus 2 RNA [facility] lab [facility] and reported by [facility]. ID Date Data Source [id number] 03/19/2020 10:37:00 AM EDT [facility] Name Value Range Interpretation Description Data Sup porting Code Source(s) Document(s ) SARS [facility] coronavirus 2 RNA This lab was ordered by [facility] and reported by [facility]. ID Date Data Source [id number] 03/15/2020 10:30:00 AM EDT [facility] Name Value Range Interpretation Description Data Sup porting Code Source(s) Document(s ) SARS [facility] coronavirus 2 RNA This lab was ordered by [facility] and reported by [facility]. ID Date Data Source [id number] 03/12/2020 12:00:00 PM EDT [facility] Name Value Range Interpretation Description Data Sup porting Code Source(s) Document(s ) SARS [facility] coronavirus 2 RNA This lab was ordered by [facility] and reported by [facility]. ID Date Data Source [id number] 03/08/2020 10:18:00 AM EDT [facility] Name Value Range Interpretation Description Data Sup porting Code Source(s) Document(s ) SARS [facility] coronavirus 2 RNA This lab was ordered by [facility] and reported by [facility]. ID Date Data Source [id number] 03/04/2020 09:50:00 AM EDT [facility] Name Value Range Interpretation Description Data Sup porting Code Source(s) Document(s ) SARS [facility] coronavirus 2 RNA This lab was ordered by [facility] and reported by [facility]. ID Date Data Source [id number] 03/02/2020 12:15:00 PM EDT [facility] Name Value Range Interpretation Description Data Sup porting Code Source(s) Document(s ) SARS [facility] coronavirus 2 RNA This lab was ordered by [facility] and reported by [facility]. ID Date Data Source [id number] 02/27/2020 09:15:00 AM EDT [facility] Name Value Range Interpretation Description Data Sup porting Code Source(s) Document(s ) SARS [facility] coronavirus 2 RNA This lab was ordered by [facility] and reported by [facility]. ID Date Data Source [id number] 02/23/2020 11:40:00 AM EDT [facility] Name Value Range Interpretation Description Data Sup porting Code Source(s) Document(s ) SARS [facility] coronavirus 2 RNA This lab was ordered by [facility] and reported by [facility]. ID Date Data Source [id number] 02/19/2020 09:56:00 AM EDT [facility] Name Value Range Interpretation Description Data Sup porting Code Source(s) Document(s ) SARS [facility] coronavirus 2 RNA [facility] and reported by [facility]. ID Date Data Source [id number] 02/16/2020 08:40:00 AM EDT [facility] Name Value Range Interpretation Description Data Sup porting Code Source(s) Document(s ) SARS [facility] coronavirus 2 RNA This lab was ordered by [facility] and reported by [facility]. ID Date Data Source [id number] 02/13/2020 10:05:00 AM EDT [facility] Name Value Range Interpretation Description Data Sup porting Code Source(s) Document(s ) SARS [facility] coronavirus 2 RNA This lab was ordered by [facility] and reported by [facility]. ID Date Data Source [id number] 02/09/2020 10:25:00 AM EDT [facility] Name Value Range Interpretation Description Data Sup porting Code Source(s) Document(s ) SARS [facility] coronavirus 2 RNA This lab was ordered by [facility] and reported by [facility]. ID Date Data Source [id number] 01/25/2020 09:20:00 AM EDT [facility] Name Value Range Interpretation Description Data Sup porting Code Source(s) Document(s ) 2019 Novel [facility] Coronavirus RNA Interpretation Unspecified Specimen Qualitative CATA Probe Detection This lab was ordered by [facility] and reported by [facility]. ID Date Data Source [id number] 12/25/2019 05:54:30 PM EDT [facility] Name Value Range Interpretation Description Data Sup porting Code Source(s) Document(s ) [place] 0.38 0.6-1.2 Below low normal [facility] [Moles/volu MMOL/L [facility]] in Hospital Serum or Plasma ID Date Data Source [id number] 12/23/2019 01:50:56 PM EDT [facility] Discharge SummaryPatient: Maxwell Hagen e Sex: male DOA: 12/05/2019Date of : 1970 A ge: 49 y.o. LOS: LOS: 3 daysAdmit Date: 12/05/2019Discharge Date: 12/08/2019 Admission Diagnoses: Encephalopathy acute [G93.40];Lfx-ucuz-knmddyt adversereactio n to medication [T88.7XXA];Twd-fjyn-febfpgi adverse reaction tomedication [T88.7XXA] Discharge Diagnoses: #1 [...] ICD-10-CM: T50.905AICD -9-CM: E947.9 12/05/2019 - Present Bce-serz-fykudxx adverse reaction to med ication ICD-10-CM: T88.7AIHVFL-0-FK: 995.20 12/05/2019 - Present Bipolar disorder wit [...] E66.01ICD-9-CM: 278.01 07/19/2018 - Present Spells ICD-10-CM: [id number]: IMO00 01 04/08/2016 - Present Seizure disorder [...] Supporting Document(s ) ID Date Data Source [id number] 12/09/2019 02:14:04 PM EDT [facility] referral made. Walker [facility].Faxed to Moriah at [facility] at FAX [phone]. She reports they ne ed to get authfor walker. Have instucted pt to buy own walker IF not authorized.He i s agreeable to buying walker if needs to.Care Management InterventionsPCP Verified by CM: YesTransition of Care Consult (CM Consult): Home HealthBon [facility] Car e: YesCurrent Support Network: Own Home, Lives with SpouseThe Patient and/or Prachi ent Clinical Researcher was Provided with a Choice of Providerand Agrees with the Discharge Plan?: YesFreedom of Choice List was Provided with Basic Dialogue that Suppor ts thePatient's Individualized Plan of Care/Goals, Treatment Preferences and Sh aresthe Quality Data Associated with the Providers?: YesVeteran Resource Informat ion Provided?: RefusedDischarge LocationDischarge Placement: [facility] BY [facility])Pt is discharged , picking him up. reports she has phone number tomake pt a follow up psych appt. [facility] to visit. will buy walker if not able to get thru [facility].Post dc note 12/08[facility] reports 50% copay - they lef t message on 's phone.I also, left a message with my call back number for any questions. hadreported to me she planned on buying a walker and would ret urn if insurance paidfor one. Name Value Range Interpretation Code Description Data [facility] Supporting Document(s ) ID Date Data Source [id number] 12/08/2019 03:06:17 PM EDT [facility] I have reviewed discharge instructions w ith the patient. The patient verbalizedunderstanding.Discussed with t he patient and all questioned fully answered. He will call me ifany problems arise.If you experience chest pain call [address] yourself.Patient armband removed a nd shredded. IV removed and discharged home stable. Name Value Range Interpretation Code Description Data [facility] Supporting Document(s ) ID Date Data Source [id number] 12/08/2019 03:02:56 PM EDT [facility] Per your note, pt with acute encephalopa thy and toxic Serum [place] level.Please specify the type of encephalopathy in yo ur progress notes: Toxic encephalopathy due to lithium Metabolic encephalopathy due to Other cause (please specify) Clinically unable to determine UnknownPLEASE DOCUM ENT ANY ADDITIONAL DIAGNOSES AND/OR SPECIFICITY IN THE PROGRESSNOTES AND/OR DISCHARGE SUMMARY. Name Value Range Interpretation Code Description Data Melani rce(s) Supporting Document(s ) ID Date Data Source [id number] 12/08/2019 02:40:45 PM EDT [facility] Problem: SuicideGoal: *STG: Remains safe [...] by Ru Mosher: Resolved/Met12/08/2019 143 by Glenys Msoher Outcome: Progressing Towards GoalGoal: *STG/LTG: No longer expresses self destr uctive or suicidal thoughts12/08/2019 1440 by Ru Mosher: Resolved/Met12/08/20191438 by Ru Mosher: Progressing Towards GoalGoal: *LTG: Identifies [facility] [address]12/08/2019 1440 by Mosher, KatyOutcome: Resolved/Met12/08/2019 1439 by [...] isk and appropriate interventions in [facility].12/08/2019 1440 by Divya Mosherome: Resolved/MetNote: Fall Risk [...] Document Harsh Scale and appropriate interventions in [facility] t.12/08/2019 1440 by Ru Mosher: Resolved/MetNote: [...] Supporting Document(s ) ID Date Data Source [id number] 12/08/2019 02:40:17 PM EDT [facility] Problem: SuicideGoal: *STG: Remains safe [...] Document Harsh Scale and appropriate interventions [facility]Outcome: P rogressing Towards GoalNote: Pressure Injury [...] Supporting Document(s ) ID Date Data Source [id number] 12/08/2019 01:18:54 PM EDT [facility] General Daily Progress NoteAdmit Date: Hospital day: .tdSubjective:Psycgm Neuro,and PT assessments reviewed. Patie nt qualifies for discharge. Wifecalled, will bring in clothes. New medical regimen di scussed with the . Willneed [place] level later this week.Current Facility-Adminis tered MedicationsMedication [...] past 8 hrs: BP Temp Pulse Resp HtB95412/07 0816 - - - - 96 %12/08/19 [...] initial encounter (12/05/2019)Active Problems: Encephalopathy acute (12/05/2019) Kbi-osir-nqfaclm adve rse reaction to medication (12/05/2019)Plan: day of discharge. Name Value Range Interpretation Code Description Data Melani rce(s) Supporting Document(s ) ID Date Data Source [id number] 12/08/2019 12:09:30 PM EDT [facility] Problem: Mobility Impaired (Adult and [...] y.o. male)Date: 12/08/2019Primary Diagnosis: E ncephalopathy acute [G93.40]Rng-mfys-efgiiys adverse reaction to medication [T88.7XXA ]Ysf-fcna-jclyxrq adverse reaction to medication [T88.7XXA]Precautions: Fall ASSESSMENT [...] morbidi ty or mortality cardiac cath at [facility] approx 6-8 months ago [...] NoneCritical Beh avior:Neurologic State: AlertOrientation Level: Oriented T6Iheaelyiz: Appropriate for age attention/concentration;Follows commandsSafety/Judgement: Decreased awar [...] Supporting Document(s ) ID Date Data Source [id number] 12/08/2019 11:48:26 AM EDT [facility] Name Value Range Interpretation Description Data Sup porting Code Source(s) Document(s ) Glucose 132 MG/DL 65-110 Above high normal [facility] [Mass/volume] [facility] in Blood by [facility] Automated test strip ID Date Data Source [id number] 12/08/2019 10:35:45 AM EDT [facility] S/O Patient has shown improvement. He re ports that medications are helping him.He denies any side effectsHe denies any cecilia cidal thoughtsHe reports that he sees a [facility] on lithium 300 mg bid [place] level in two days Will increase Zyprexa 5 mg Will follow up as requested Name Value Range Interpretation Code Description Data Melani rce(s) Supporting Document(s ) ID Date Data Source [id number] 12/08/2019 07:28:52 AM EDT [facility] Bedside and Verbal shift change report cristi Hurley RN (oncoming nurse) Annalise DE LEON RN (offgoing nurse). Repor t included the followinginformation SBAR, Kardex, MAR and Recent Results. Name Value Range Interpretation Code Description Data Melani rce(s) Supporting Document(s ) ID Date Data Source [id number] 12/07/2019 08:26:02 PM EDT [facility] Problem: Falls - Risk ofGoal: [...] Name Value Range Interpretation Code Description Data [facility] rce(s) Supporting Document(s ) ID Date Data Source [id number] 12/07/2019 07:05:28 PM EDT [facility] Verbal shift change report given to Chandrakant Cox RN (oncoming nurse) by Steven Villalobos RN (offgoing nurse). Report inc luded the following information SBAR, Kardex,Intake/Output, MAR, Recent Result s and Cardiac Rhythm on telemetry. Name Value Range Interpretation Code Description Data Melani rce(s) Supporting Document(s ) ID Date Data Source [id number] 12/07/2019 01:30:56 PM EDT [facility] Trent Jacob MD[address] [place] [address] [phone].Mitro Progress NotePatient: Maxwell Bray Sex: male DOA: [...] (LOVENOX) injection 40 mg 40 mg SubCUTAneous C67OMgupgeluq:Visit VitalsBP 153/85 (BP 1 Location: Left arm, BP Prachi ent Position: At rest)Pulse 96Temp 98.7 F (37.1 C)Resp 20Ht 5' 5.75" (1.67 m)Wt 3 01 lb 1.6 oz (136.6 kg)SpO2 96%BMI 48.97 kg/m Body mass index is 48.97 kg/m .Patient V itals for the past 24 hrs: Temp Pulse Resp BP GuZ055 1249 - 96 - 153/85 - 0 [...] time notated as "note time" in [facility]. (It is not time stamped separately [...] shoulder M79.2 Seizure disorder (HCC) G40.909 Spells [id number] Severe obesity (HCC) E66.01 Depression F32.9 Anxiety F41.9 Bipolar disorder (HCC) F31.9 Depressive disorder F32.9 Status post g astric bypass for obesity Z98.84 Morbid obesity (HCC) E66.01 Mixed anxiety and depressive disorder F41.8 Vitamin D deficiency E55.9 Bipolar disorder with severe depression (HCC) F31.4 Encephalopathy acute G93.40 Adverse drug reaction, ini tial encounter T50.905A Xin-frgm-kewufuo adverse reaction to medication T88.7XXA 49 year [...] Supporting Document(s ) ID Date Data Source [id number] 12/07/2019 01:02:36 PM EDT [facility] Pt seen and discussed with Dr Canas .Pt is tearful flat and denies any suicidal thoughts , has been depressed withlithiu m on hold , No Vraylar and he is unable to get [facility] And no w will be with [facility] with Dr Womack his lithium level is un therape utic range I will start on lithium , add 2.5mg of zyprexa and lower his klonopin And increase his elavil to 200 mg HSWill get pt followed up with Psychiatry Name Value Range Interpretation Code Description Data Melani rce(s) Supporting Document(s ) ID Date Data Source [id number] 12/07/2019 12:52:32 PM EDT [facility] Problem: Fluid Volume - Risk of, Imbalan cedGoal: *Balanced intake and outputOutcome: Progressing Towards GoalProblem: Patient Education: Go to Patient Education ActivityGoal: Patient/Family EducationOu tcome: Progressing Towards Goal Name Value Range Interpretation Code Description Data Melani rce(s) Supporting Document(s ) ID Date Data Source [id number] 12/07/2019 12:45:20 PM EDT [facility] Problem: Falls - Risk ofGoal: [...] Supporting Document(s ) ID Date Data Source [id number] 12/07/2019 12:24:47 PM EDT [facility] General Daily Progress NoteAdmit Date: [...] injection 40 mg 40 mg SubCUTA neous K60DKjsxajcba:Patient Vitals for the past 8 hrs: BP Temp Pulse Resp QlT01512/06 0956 147/86 98.7 F (37.1 C) 95 [...] initial encounter (12/05/2019)Active Problems: Encephalopathy acute (12/05/2019) Fym-nzof-aqxyxwn adve rse reaction to medication (12/05/2019)Plan:To increase activity, diet,klonopin. Start Losartan Name Value Range Interpretation Code Description Data Melani rce(s) Supporting Document(s ) ID Date Data Source [id number] 12/07/2019 10:13:28 AM EDT [facility] LTM EEG supervisor carbon paper coating DC'd per Dr. Jacob. Name Value Range Interpretation Code Description Data Melani rce(s) Supporting Document(s ) ID Date Data Source [id number] 12/07/2019 10:08:27 AM EDT [place] [address] [address] [place] BUTCH [id number]: MAXWELL BRAYMRN: [id number]: [id number]#: [id number] DATE: 12/05/2019LONG TERM [facility] MEDICAL DIRECTOR: Riky Rodriguez HISTORY: The patient is [...] montages. Digital analysis was performed employing an [employer] neuralnetwork program with parameterization and statistical analysi [...] seen, that attenuates with eye opening.There was niob-zu-ntkhixfn gener alized background slowing.There was no clear focal slowing.ACTIVATION TECHNIQUES: Ph otic stimulation and hyperventilation were notperformed.SLEEP: During drowsiness, there is mild attenuation and slowing of thebackground rhythm. There was normal sleep seen including symmetric vertexwaves, sleep spindles, and K-complexes.OTHER AC TIVITY: There were no clear epileptiform discharges and no seizures orclinical ev ents recorded.DIGITAL ANALYSIS: Variable spectral pattern without significant lef j-ou-fcsnfrjxfglcfsgc. Spikes were artifact in nature.DECEMBER 06 DAILY [...] the awake and asleep states due to qdll-jr-xexjgvbv diffuse cerebraldysfunc tion that improves to mild over the course of the recording. TRENT JACOB, MDDD: #12/06/2019 10:21:35/SS /[id number]/[id number] #: [id number] / [id number] Name Value Range Interpretation Code Description Data Melani rce(s) Supporting Document(s ) ID Date Data Source [id number] 12/07/2019 07:45:20 AM EDT [facility] Bedside and Verbal shift change report cristi Dove RN (3Loria) (oncomingnurse) by Vy Green RN (offgoing nurse). Report included the following information SBCIERRA, Nano Benites Recent Results. Name Value Range Interpretation Code Description Data Melani rce(s) Supporting Document(s ) ID Date Data Source [id number] 12/07/2019 07:22:41 AM EDT [facility] All leads and head wrapping intact. Day 2 LTM complete. Awaiting instructions tocontinue for day 3 or DC. Name Value Range Interpretation Code Description Data Melani rce(s) Supporting Document(s ) ID Date Data Source [id number] 12/07/2019 05:19:11 AM EDT [facility] Name Value Range Interpretation Description Data Sup porting Code Source(s) Document(s ) Sodium 138 136-145 [facility] [Moles/volume] mmol/L [facility] Serum or Hospital Plasma Potassium 3.5 3.5-5.1 [facility] [Moles/volume] mmol/L [facility] in Serum or Hospital Plasma Chloride 106 98-107 [facility] [Moles/volume] mmol/L [facility] in Serum or Hospital Plasma Carbon 27 21-32 [facility] dioxide, total mmol/L [facility] [Moles/volume] Hospital in Serum or Plasma Anion gap in 10 10-20 [facility] Serum or mmol/L [facility] Plasma Hospital Glucose 140 74-106 Above high normal [facility] [Mass/volume] mg/dL [facility] in Serum or Hospital Plasma Urea nitrogen 19 mg/dL 7-18 Above high normal [facility] [Mass/volume] [facility] in Serum or Hospital Plasma Creatinine 0.94 0.70-1.3 [facility] [Mass/volume] mg/dL 0 [facility] in Serum or Hospital Plasma Glomerular >60 [facility] filtration [facility] rate/1.73 sq M Hospital predicted among blacks [Volume Rate/Area] in Serum or Plasma by Creatinine-bas ed formula (MDRD) Glomerular >60 [facility] rate/1.73 sq M Hospital predicted among non-blacks [Volume Rate/Area] in Serum or Plasma by Creatinine-bas ed formula (MDRD) (NOTE)Estimated GFR is calculated using the Modification of Diet in RenalDisease (MDRD) Study equation, reported for both Americans(GFRAA) and non- Americans (GFRNA), and normalized to 1.7 5p0ikpc surface area. The physician must decide which value applies tothe patient . The MDRD study equation should only be used inindividuals age 18 or older. It has no t been validated for thefollowing: women, patients with serious comorbid co nditions,or on certain medications, or persons with extremes of body size,muscl e mass, or nutritional status. Calcium [Mass/volume] in Serum 9.1 mg/dL 8.5-10.1 [facility] or Plasma Hospital ID Date Data Source [id number] 12/06/2019 08:12:24 PM EDT [facility] Bedside and Verbal shift change report cristi Loyd RN (oncoming nurse) Estephania Wakefield RN (offgoing nurse). Report included the followinginformation SBAR, Kardex, MAR, Recent Results, and Med Rec Status. Name Value Range Interpretation Code Description Data Melani rce(s) Supporting Document(s ) ID Date Data Source [id number] 12/06/2019 04:57:12 PM EDT [facility] General Daily Progress NoteAdmit Date: [...] (LOVENOX) injection 40 mg 40 mg SubCUTAneous U78CHqnptbrvm:Patient Vi tals for the past 8 hrs: BP Temp Pulse Resp PnP11812/06/19 1547 (!) 164/100 99.6 F (3 7.6 [...] Time: 12/06/19 4:25 AMResult Value Ref Range [place] level 1.09 0.6 - 1.2 MMOL/L Xr [...] initial encounter (12/05/2019)Active Problems: Encephalopathy acute (12/05/2019) Uqx-cgij-gvzfqsk adve rse reaction to medication (12/05/2019)Plan:To reduce iv fluids, repeat lasix Name Value Range Interpretation Code Description Data Melani rce(s) Supporting Document(s ) ID Date Data Source [id number] 12/06/2019 04:14:48 PM EDT [facility] Psychiatry Consult NoteSubjective:Patien t: Maxwell Bray [...] of morbidity or mortality cardiac cath at [facility] approx 6-8 months ago Other unknown and unspecified cause of morbidity or mortal ity concussions Other unknown and unspecified cause of morbidity or mortal ity "periodic disorientation" Other unknown and unspecified cause of morbidity or mo rtality anxiety Psychiatric disorder anxiety, depressionPsychiatric History: Patient reported he was receiving care in outpatient from [facility] psychiatrist bu t did not discuss details.Substance Use History:Social HistorySubstance and Sexu al ActivityAlcohol Use No Frequency: Never Drinks per session: 1 or 2 Binge freque ncy: NeverSocial HistorySubstance and Sexual ActivityDrug Use NoObjective:Vitals/Phys ical Assessment:Patient Vitals for the past 8 hrs: BP Temp Pulse Resp VnF73612/06/19 081 3 (!) 153/94 100.4 F (38 [...] encounter (12/05/2019)A ctive Problems: Encephalopathy acute (12/05/2019) Bwo-fekv-olvxoff adverse re action to medication (12/05/2019)Plan:No current [...] Supporting Document(s ) ID Date Data Source [id number] 12/06/2019 01:18:16 PM EDT [facility] Trent Jacob MD[address], [address] [place] [address] [phone] Progress NotePatient: Maxwell Bray Sex: male DOA: 12/05/2019Date of : 1970 Age: 49 y.o. LOS: LOS: 1 daySubjective:Awake, alert, tremulous, no current complaintsEEG w/ mild to mod gen slowREVIEW OF SYSTEMS: NO CP, SOB, N,V,D, F,CCurrent Facility-Administered MedicationsMedication Dose Route Frequen cy 0.9% sodium chloride infusion 125 mL/hr IntraVENous CONTINUOUS enoxaparin (LOVE NOX) injection 40 mg 40 mg SubCUTAneous V45CXdoohpgzw:Visit VitalsBP (!) 153/94 (BP 1 Location: Left arm, BP Patient Position: At rest)Pulse 100Temp 100.4 F (38 C)Resp 18Ht 5' 5.75" (1.67 m)Wt 300 lb (136.1 kg)SpO2 96%BMI 48.79 kg/m Body mass index is 48.79 kg/m .Patient Vitals for the past 24 hrs: Temp Pulse Resp BP IlT98612/06/19 0813 100.4 F (38 C) 100 18 [...] past 24 hours were reviewed both [facility] daily workflow process and at the time notated as "note time" in [facility]. (It is not time stamped separately in [...] Time: 12/06/19 4:25 AMResult Value Ref Range [place] level 1.09 0.6 - 1.2 MMOL/LCT Results [...] hic pain of shoulder M79.2 Seizure disorder ([facility]) G40.909 Spells [id number] Severe ob esity ([facility]) E66.01 Depression F32.9 Anxiety F41.9 Bipolar disorder (HCC) F31.9 Dep ressive disorder F32.9 Status post gastric bypass for obesity Z98.84 Morbid obesit y ([facility]) E66.01 Mixed anxiety and depressive disorder F41.8 Vitamin D deficiency E55 .9 Bipolar disorder with severe depression ([facility]) F31.4 Encephalopathy acute G93.40 Adverse drug reaction, initial encounter T50.905A Rgf-ziyf-lqbfgxv adverse react ion to medication T88.7XXA49 year [...] Name Value Range Interpretation Code Description Data [facility](s ) ID Date Data Source [id number] 12/06/2019 11:43:34 AM EDT [facility] LTM study day 1 complete. All leads and head wrapping intact. Day 2 LTM studycommenced and LIVE via [facility]IFI on [facility]. 06/28 Name Value Range Interpretation Code Description Data [facility](s) Supporting Document(s ) ID Date Data Source [id number] 12/06/2019 10:48:32 AM EDT [facility] Care Management InterventionsPCP Verifie d by CM: YesCurrent Support Network: Own Home, Lives with SpouseThe Patient and/o r Patient Clinical Researcher was Provided with a Choice of Providerand Agrees with the Betty rose Plan?: YesFreedom of Choice List was Provided with Basic Dialogue that Suppor ts thePatient's Individualized Plan of Care/Goals, Treatment Preferences and Sh aresthe Quality Data Associated with the Providers?: YesVeteran Resource Informat ion Provided?: RefusedDischarge LocationDischarge Placement: HomeCASE YUE LORENZ PSYCHOSOCIAL ASSESSMENTMaxwell Mendieta Sweet Admission Marlon e: 12/05/2019MRN: [id number] of : 1970Current date: 12/06/2019 DISCHARGE PLAN: Patient is a 49 year old male admitted to [facility]. CM attempted toreach hi [...] services. Open for SNF. Family would like [facility]. CM CCLINKD. CM willfollow.Patient Information:Patients Preferred [...] NoPCP: Ritika Canas MDAdmitting Provider: Ritika lobo MDCRITICAL ACCESS HOSPITAL IN[facility]ECARE PHYSICIAN GYNECOLOGIST: N/APayor: P ayor: [facility] HEALTH PLAN / Plan: [facility] HE[facility] PLAN /Product Type: HMO /Secondary Payor : @SECINSGROUPNAME@Encephalopathy acute [G93.40]Gdi-fbvc-uyockbj adverse reactio n to medication [T88.7XXA]Yjq-vmfe-hefqopp adverse reaction to medication [T88.7XXA ]Patient Active Problem ListDiagnosis Code H/O gastric bypass Z98.84 Insomnia G47. 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 Seizure disorder (HCC) G40.909 Spells I [id number] Severe obesity (HCC) E66.01 Depression F32.9 Anxiety F41.9 Bipolar disorder (HCC) F31.9 Depressive disorder F32.9 Status post gastric bypass for ob esity Z98.84 Morbid obesity (HCC) E66.01 Mixed anxiety and depressive disorder F4 1.8 Vitamin D deficiency E55.9 Bipolar disorder with severe depression (HCC) F3 1.4 Encephalopathy acute G93.40 Adverse drug reaction, initial encounter T50.905 A Obm-xdmu-cmejrwv adverse reaction to medication T88.7XXASocial HistorySubstan ce [...] Supporting Document(s ) ID Date Data Source [id number] 12/06/2019 07:40:06 AM EDT [facility] 1938: Patient found in bed [...] Supporting Document(s ) ID Date Data Source [id number] 12/06/2019 05:07:27 AM EDT [facility] Name Value Range Interpretation Description Data Sup porting Code Source(s) Document(s ) [place] 1.09 0.6-1.2 [facility] - Good [Moles/volu MMOL/L Sabianist me] in Hospital Serum or Plasma ID Date Data Source [id number] 12/05/2019 07:59:09 PM EDT [facility] Name Value Range Interpretation Description Data Sup porting Code Source(s) Document(s ) Ammonia 16 UMOL/L 11-32 [facility] - Good [Moles/volum Sabianist e] in Plasma Hospital ID Date Data Source [id number] 12/05/2019 07:56:38 PM EDT [facility] Name Value Range Interpretation Description Data Sup porting Code Source(s) Document(s ) Lactate 0.9 0.4-2.0 [facility] - Good [Moles/volu MMOL/L Sabianist me] in Hospital Serum or Plasma ID Date Data Source [id number] 12/05/2019 06:42:57 PM EDT [facility] 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 Day 1 LTM comm enced and LIVE via WIFI on [facility] 06/28 Name Value Range Interpretation Code Description Data Melani rce(s) Supporting Document(s ) ID Date Data Source [id number] 12/05/2019 06:07:34 PM EDT [facility] [id number] [employer] [facility] [address] [facility] [phone] Maxwell Bray (Male) [id number] I 3 ED Dispo:ADMIT Chief Complaint: Fall, Fatigue Diagnosis: Altered mental status, unspecified altered mental status type [] Adverse drug reaction, initial encounter [] Encephalopathy acute [] Xgf-bgio-khrfeac adverse effect of medication, subsequent encounter [] Bipolar disorder with severe depression (HCC) [] H/O gastric bypass [] Curre nt Providers: Attending: Patsy aMnzo; Kristy Otero; Cristi Canas Consulting Provider: Jose Centeno; Cristi Canas; Javier Khan; Cristi Frazier Primary Nurse: BAILEY GambleN: [phone] 5 [phone] [employer] [phone] - [facility] [employer] MrnMRN: [id number] [employer] [phone] - [employer] Age SexDOB 1970 AGE 49 SEX Male Primary Care Provider: Ritika Canas MD Phone: Allergies: (No Known Allergies)Date Reviewed: 12/05/2019Reviewed by: Ritika Canas MD - Review CompleteED Provider Notes: All notesHNO ID: [id number]: Julio Manzo MDService: EMERGENCYAuthor Type: Physici anFiled: [...] of morbidity or mortality cardiac cath at [facility] approx 6-8 months ag [...] week Gets together: Once a week Attends voodoo service: More than 4 times per year [...] Calculation (Bez et) 515 ms Calculated P [place] 40 degrees Calculated R [place] 41 degrees Calculated T [place] 147 degrees Diagnosis Sinus tachycardiaProbable left atrial [...] Time: 12/05/19 12:38 PMResult Value Ref Range [place] level 1 .53 (HH) 0.6 - 1.2 MMOL/LLACTIC ACID Collection Time: 12/05/19 12:40 PMResult Value Ref Range Lactic acid 1.1 0.4 - 2.0 MMOL/LEKG:Sinus tachycardia at 100 BPM, normal axis, nothing acute.Interpreted by Julio Manzo MD11:20 AM cardiac cath lab manager reading shows sinus tachycardia at 100 [...] mental status, unspecified altered mental status type R41.38339.97Patient c ondition at time of disposition: StableI [...] thediagnostic studies, unless otherwise noted.+ED Orde rs [id number] SUPERINTENDENT CUSTODIAN JANITOR - ED ONLY [#[id number]] Priority: STAT Class: Hospital Performe d Standing Order Information Remaining Occurrences:0/1 Interval:Continuous Last release d:12/05/2019 Released orders: SunDec 05, 2019 11:20 AM by: JULIO MANZO Type: -> Bedside N [id number] PULSE OXIMETRY CONTINUOUS [#[id number]] Priority: STAT Class: Hospital Performe d Standing Order Information Remaining Occurrences:0/1 Interval:CONTINUOUS Last release d:12/05/2019 Released orders: SunDec 05, 2019 11:20 AM by: JULIO MANZO [id number] PULSE OXIMETRY SPOT CHECK [#[id number]] Priority: STAT Class: Hospital Performed Standing Order Inf ormation Remaining Occurrences:0/1 Interval:ONE TIME Last released:12/05/2019 Release d orders: SunDec 05, 2019 11:20 AM by: JULIO MANZO [id number] OBTAIN OLD EKG [ #[id number]] Priority: Routine Class: Hospital Performed Standing Order Information Remainin g Occurrences:0/1 Interval:ONE TIME Last released:12/05/2019 Released orders : SunDec 05, 2019 11:20 AM by: JULIO MANZO [id number] SUPERINTENDENT CUSTODIAN JANITOR - ED ONLY [# [id number]] Priority: STAT Class: Hospital Performed Type: -> Bedside Released on: 12/05/2019 11:20 AM [id number] PULSE OXIMETRY CONTINUOUS [#[id number]] Priority: STAT Class: Hospital Performe d Released on: 12/05/2019 11:20 AM [id number] PULSE OXIMETRY SPOT CHECK [#[id number]] Priori ty: STAT Class: Hospital Performed Released on: 12/05/2019 11:20 AM [id number] OBTAIN OLD EKG [#[id number]] Priority: STAT Class: Hospital Performed Released on: 12/05/2019 11:20 AM [id number] VITAL SIGNS PER UNIT ROUTINE [#[id number]] Priority: STAT Class: Hospital Performed Stand ing Order Information Remaining Occurrences:0/1 Interval:CONTINUOUS Last released :12/05/2019 Released orders: SunDec 05, 2019 2:41 PM by: RITIKA CANAS Comment:More frequent ly if Indicated. [id number] BEDREST, COMPLETE [#[id number]] Priority: STAT Class: H ospital Performed Standing Order Information Remaining Occurrences:0/1 Interval:CONTIN UOUS Last released:12/05/2019 Released orders: SunDec 05, 2019 2:41 PM by: RITIKA CANAS [id number] NOTIFY PROVIDER: VITAL SIGNS CHANGES [#[id number]] Priority: STAT Class: Hospital Performe d Standing [...] Less than 120 ml in 4 hours [id number] APPLY/MAINTAIN SEQUENTIAL COMPRESSIO* [# [id number]] Priority: STAT Class: Hospital Performed Standing Order Information Remaining Occurre nces:0/1 Interval:CONTINUOUS Last released:12/05/2019 Released orders: SunDec 05, 2019 2:41 PM by: RITIKA CANAS [id number] VITAL SIGNS PER UNIT ROUTINE [#[id number]] Priorit y: STAT Class: Hospital Performed Comment:More frequently if Indicated. Released on: 12/05/2019 2 :41 PM [id number] BEDREST, COMPLETE [#[id number]] Priority: STAT Class: Hospital Performe d Released on: 12/05/2019 2:41 PM [id number] NOTIFY PROVIDER: VITAL SIGNS CHANGES [#[id number]] Priority: STAT Class: Hospital Performed Temp -> [...] carmen rs Released on: 12/05/2019 2:41 PM [id number] APPLY/MAINTAIN SEQUENTIAL COMPRESSIO* [#[id number]] P riority: STAT Class: Hospital Performed Released on: 12/05/2019 2:41 PM [id number] RT--OXYGEN CANNULA [#[id number]] Priority: STAT Class: Hospital Performed Standing Order Information Remaining Occurrences:0/1 Interval:CONTINUOUS Last released:12/05/2019 Released o rders: SunDec 05, 2019 11:20 AM by: JULIO MANZO LPM -> 2 Indications for O2? -> CHEST PAIN [id number] RT--OXYGEN CANNULA [#[id number]] Priority: STAT Class: Hospital Performe d LPM -> 2 Indications for O2? -> CHEST PAIN Released on: 12/05/2019 11:20 AM [id number] DIET NPO [#[id number]] Canceled Priority: STAT Class: Hospital Performed Cancele d by RITIKA CANAS on SunDec 05, 2019 2:41 PM Reason: None Comment: Standing Order Information Remaining Occurrences:0/1 Interval:DIET EFFECTIVE NOW Last released:12/05/2019 Release d orders: SunDec 05, 2019 11:20 AM by: JULIO MANZO NPO options: -> With Meds [id number] DIET NPO [#[id number]] Canceled Priority: STAT Class: Hospital Performed Cancele d by RITIKA CANAS on SunDec 05, 2019 2:41 PM Reason: None Comment: NPO options: -> With Meds Released on: 12/05/2019 11:20 AM [id number] DIET NPO [#[id number]] Priority: S TAT Class: Hospital Performed Standing Order Information Remaining Occurrences:0/1 Inter haile:DIET EFFECTIVE NOW Last released:12/05/2019 Released orders: SunDec 05, 2019 2:41 PM by: RITIKA CANAS [id number] DIET NPO [#[id number]] Priority: STAT Class: H ospital Performed Released on: 12/05/2019 2:41 PM [id number] SALINE LOCK IV [#[id number]] Priority: STAT Class: Hospital Performed Standing Order Information Remaining Occurrences:0 /1 Interval:ONE TIME Last released:12/05/2019 Released orders: SunDec 05, 2019 11:20 AM by: JULIO MANZO IVT11 SALINE LOCK IV [#[id number]] Priority: STAT Cl ass: Hospital Performed Released on: 12/05/2019 11:20 AM [id number] METABOLIC PANEL, COMPREHENSIVE [# [id number]] Priority: STAT Class: ER Collect Standing Order Information Remaining Occurrences:0 /1 Interval:ONE TIME Last released:12/05/2019 Released orders: SunDec 05, 2019 11:20 AM by: JULIO MANZO [id number] CBC WITH AUTOMATED DIFF [#[id number]] Priority: STAT Cl ass: ER Collect Standing Order Information Remaining Occurrences:0/1 Interval:ONE TI ME Last released:12/05/2019 Released orders: SunDec 05, 2019 11:20 AM by: JULIO MANZO [id number] TROPONIN I [#[id number]] Priority: STAT Class: ER Collect Sta nding Order Information Remaining Occurrences:0/1 Interval:ONE TIME Last released:0 12/05/2019 Released orders: SunDec 05, 2019 11:20 AM by: JULIO MANZO [id number] MAGNESIUM [#[id number]] Priority: STAT Class: ER Collect Standing Order Information Remaining Occurrences:0/1 Interval:ONE TIME Last released:12/05/2019 Released orders : SunDec 05, 2019 11:20 AM by: JULIO MANZO [id number] LACTIC ACID [#[id number]] Priority: STAT Class: ER Collect Standing Order Information Remaining Occurrences:0/2 Interval:NOW THEN EVERY 4 HOURS Last released:12/05/2019 Released orders: SunDec 05, 2019 12:06 PM by: JULIO MANZO SunDec 05, 2019 11:20 AM by: JULIO MANZO [id number] PROTHROMBIN TIME + INR [#[id number]] Priority: STAT Class: ER Collect Standing Order Information Remain ing Occurrences:0/1 Interval:ONE TIME Last released:12/05/2019 Released orders : SunDec 05, 2019 11:20 AM by: JULIO MANZO [id number] URINALYSIS W/ RFLX MICROSCOPIC [# [id number]] Priority: STAT Class: ER Collect Standing Order Information Remaining Occurrences:0 /1 Interval:ONE TIME Last released:12/05/2019 Released orders: SunDec 05, 2019 11:20 AM by: JULIO MANZO [id number] METABOLIC PANEL, COMPREHENSIVE [#[id number]] Priority: STAT Cl ass: ER Collect Specimen Source: Plasma Specimen Collected: 12/05/2019 12:38 PM Resulting Agency: [facility] Test ID: MPL Released on: 12/05/2019 11:20 AM [id number] CBC WITH A UTOMATED DIFF [#[id number]] Priority: STAT Class: ER Collect Specimen Source: Whole Blood S pecimen Collected: 12/05/2019 12:38 PM Resulting Agency: [facility] Test ID: CBCXA Released on: 12/05/2019 11:20 AM [id number] TROPONIN I [#[id number]] Prior ity: STAT Class: ER Collect Specimen Source: Plasma Specimen Collected: 12/05/2019 12:38 PM Resultin g Agency: [facility] Test ID: TROIP Released on: 12/05/2019 11:20 AM [id number] 2 MAGNESIUM [#[id number]] Priority: STAT Class: ER Collect Specimen Source : Plasma Specimen Collected: 12/05/2019 12:38 PM Resulting Agency: [facility] Test ID: MGPL Released on: 12/05/2019 11:20 AM [id number] LACTIC ACID [#[id number]] P riority: STAT Class: ER Collect Specimen Source: Plasma Specimen Collected: 12/05/2019 12:40 PM Resultin g Agency: [facility] Test ID: LAC Released on: 12/05/2019 11:20 AM [id number] PROTHR OMBIN TIME + INR [#[id number]] Priority: STAT Class: ER Collect Specimen Source: Plasma Spe cimen Collected: 12/05/2019 12:38 PM Resulting Agency: [facility] Test ID: APTHR R eleased on: 12/05/2019 11:20 AM [id number] URINALYSIS W/ RFLX MICROSCOPIC [#[id number]] Prior ity: STAT Class: ER Collect Specimen Source: Urine Specimen Collected: 12/05/2019 2:45 PM Resultin g Agency: [facility] Test ID: UA Released on: 12/05/2019 11:20 AM [id number] JAYLAN M [#[id number]] Priority: STAT Class: ER Collect Standing Order Information Remaining Occurrences:0/1 Interval:ONE TIME Last released:12/05/2019 Released orders : SunDec 05, 2019 11:40 AM by: MECHELLE GAMBLE [id number] LITHIUM [# [id number]] Priority: STAT Class: ER Collect Specimen Source: Serum Specimen Collected: 12/05/2019 12 :38 PM Resulting Agency: [facility] Test ID: LI Released on: 12/05/2019 11:40 AM [id number] LITHIUM [#[id number]] Canceled Priority: STAT Class: ER Collect Canceled by TENA, LAB IN [facility] on SunDec 05, 2019 11:42 AM Reason: Other Comment: Duplicate Standing Order Information Remaining Occurrences:0/1 Interval:ONE TIME Last released:0 12/05/2019 Released orders: SunDec 05, 2019 11:41 AM by: JULIO MANZO [id number] LITHIUM [#[id number]] Canceled Priority: STAT Class: ER Collect Specimen Collected: 12/05/2019 11:45 AM Resulting Agency: [facility] Test ID: LI Canceled by TENA, [facility] [place] on SunDec 05, 2019 11:42 AM Reason: Other Comment: Duplicate Rele ased on: 12/05/2019 11:41 AM [id number] LACTIC ACID [#[id number]] Priority: STAT Cl ass: ER Collect Resulting Agency: [facility] Test ID: LAC Released on: 12/05/2019 12:06 PM [id number] AMMONIA [#[id number]] Priority: Routine Class: ER Collect Specimen Source: Blood Standing Order Information Remaining Occurrences:0/1 Interval:ONE TI ME Last released:12/05/2019 Released orders: SunDec 05, 2019 3:19 PM by: Javier KHAN [id number] AMMONIA [#[id number]] Priority: STAT Class: ER Collect Spe cimen Source: Blood Resulting Agency: [facility] Test ID: NH3 Released on: 12/05/2019 3:19 PM [id number] BILIRUBIN, CONFIRM [#[id number]] Priority: Routine Class : ER Collect Resulting Agency: [facility] Test ID: ICTO Standing Order Informat ion Remaining Occurrences:0/1 Released orders: SunDec 05, 2019 2:45 PM by: Automatic B atch Process [id number] BILIRUBIN, CONFIRM [#[id number]] Priority: Routine Class : ER Collect Specimen Source: Miscellaneous sample Specimen Collected: 12/05/2019 2:45 PM Resultin g Agency: [facility] Test ID: ICTO Released on: 12/05/2019 2:45 PM [id number] 6 EKG, 12 LEAD, INITIAL [#[id number]] Priority: STAT Class: Hospital Performed Stand ing Order Information Remaining Occurrences:0/1 Interval:ONE TIME Last released:0 12/05/2019 Released orders: SunDec 05, 2019 11:20 AM by: JULIO MANZO Reason for Exam: -> Chest Pain [id number] EKG, 12 LEAD, INITIAL [#[id number]] Priority: STAT Class: H ospital Performed Resulting Agency: [facility] Test ID: [id number] Reason for Exam: -> Chest Pain Releas ed on: 12/05/2019 11:20 AM [id number] XR CHEST PORT [#[id number]] Priority: STAT Clas s: Hospital Performed Standing Order Information Remaining Occurrences:0/1 Interval:ONE TI ME Last released:12/05/2019 Released orders: SunDec 05, 2019 11:20 AM by: JULIO MANZO Reason for Exam -> Chest Pain [id number] CT HEAD WO CONT [#[id number]] Priority: S TAT Class: Hospital Performed Standing Order Information Remaining Occurrences:0/1 Inter haile:ONE TIME Last released:12/05/2019 Released orders: SunDec 05, 2019 11:20 AM by: JULIO MANZO Reason for Exam -> ams [id number] XR PELV AP ONLY [#[id number]] Priority: S TAT Class: Hospital Performed Standing Order Information Remaining Occurrences:0/1 Inter haile:ONE TIME Last released:12/05/2019 Released orders: SunDec 05, 2019 11:20 AM by: JULIO MANZO Reason for Exam -> fall [id number] XR CHEST PORT [#[id number]] Priority: STAT Class: Hospital Performed Specimen Collected: 12/05/2019 12:21 PM Resulting Agency: [facility] Test ID: [id number] Reason for Exam -> Chest Pain Released on: 12/05/2019 11:[id number] HEAD WO CONT [#[id number]] Priority: STAT Class: Hospital Performed Specimen Collected : 12/05/2019 12:43 PM Resulting Agency: [facility] Test ID: [id number] Reason for Exam -> ams R eleased on: 12/05/2019 11:20 AM [id number] XR PELV AP ONLY [#[id number]] Priority: STAT Class: Hospital Performed Specimen Collected: 12/05/2019 12:23 PM Resulting Agency: [facility] Test ID : [id number] Reason for Exam -> fall Released on: 12/05/2019 11:20 AM [id number] MRI BRAIN WO CONT [#[id number]] Priority: STAT Class: Hospital Performed Standing Order Information Remaining Occurrences:0/1 Interval:ONE TIME Last released:12/05/2019 Released orders : SunDec 05, 2019 3:19 PM by: JOSE KHAN Reason for Exam -> ams [id number] MRI BRA IN WO CONT [#[id number]] Priority: STAT Class: Hospital Performed Specimen Collected : 12/05/2019 5:03 PM Resulting Agency: [facility] Test ID: [id number] Reason for Exam -> ams R eleased on: 12/05/2019 3:19 PM [id number] CULTURE, BLOOD [#[id number]] Priority: Routi ne Class: ER Collect Specimen Source: Blood Standing Order Information Remaining Occurrences:0 /1 Interval:ONE TIME Last released:12/05/2019 Released orders: SunDec 05, 2019 11:20 AM by: JULIO MANZO [id number] CULTURE, BLOOD [#[id number]] Priority: STAT Cl ass: ER Collect Specimen Source: Blood Standing Order Information Remaining Occurrences:0/1 I nterval:ONE TIME Last released:12/05/2019 Released orders: SunDec 05, 2019 11:20 AM by: JULIO MANZO3 CULTURE, BLOOD [#[id number]] Priority: STAT Class: E R Collect Specimen Source: Blood Specimen Collected: 12/05/2019 12:38 PM Resulting Agency: [facility] Test ID: HBCS Released on: 12/05/2019 11:20 AM [id number] CULTURE, BLOOD [#[id number]] Priority: STAT Class: ER Collect Specimen Source: Blood Specimen Collected: 12/04 12:30 PM Resulting Agency: [facility] Test ID: HBCS Released on: 12/05/2019 11:20 AM CEFTRIAXONE 1 GRAM IVPB MBP [#[id number]] Priority: STAT Class: Normal An tibiotic Indications -> Sepsis of Unknown Etiology SODIUM CHLORIDE 0.9 % IV [#[id number]] Priority: STAT Class: Normal SODIUM CHLORIDE 0.9 % IV [#[id number]] Priority : STAT Class: Normal ENOXAPARIN 40 MG/0.4 ML SUB-Q SYRINGE [#[id number]] Priority: STAT Class: N ormal ENOXAPARIN 40 MG/0.4 ML SUB-Q SYRINGE [#[id number]] Priority: STAT Class: Normal FUROSEMIDE 10 MG/ML IJ SOLN [#[id number]] Priority: STAT Class: Normal CON53 IP CONSULT TO PS YCHIATRY [#[id number]] Priority: STAT Class: Hospital Performed Standing Order Information Remaining Occurrences:0/1 Interval:ONE TIME Last released:12/05/2019 Released orders : SunDec 05, 2019 11:42 AM by: JULIO MANZO Reason for Consult: -> si Did you call or spea k to the consulting provider? -> No Consult To -> si CON53 IP CONSULT TO PSYCHIATRY [#[id number]] Priority: STAT Class: Hospital Performed Reason for Consult: -> si Did you call or spea k to the consulting provider? -> No Consult To -> si Released on: 12/05/2019 11:42 AM CON62 IP CON SULT TO INTERNAL MEDICINE [#[id number]] Priority: STAT Class: Hospital Performed Standing Order Inf ormation Remaining Occurrences:0/1 Interval:ONE TIME Last released:12/05/2019 Release d orders: SunDec 05, 2019 2:16 PM by: CARLA OTERO Reason for Consult: -> Altered mental st atus, Dr. Canas to admit Did you call or speak to the consulting provider? -> Yes CON62 IP CONSULT TO INTERNAL MEDICINE [#[id number]] Priority: STAT Class: Hospital Performed Reason for Consu lt: -> Altered mental status, Dr. Canas to admit Did you call or speak to the consulting provider? -> Yes Released on: 12/05/2019 2:16 PM CON53 IP CONSULT TO PSYCHIATRY [#[id number]] Priority: STAT Class: Hospital Performed Standing Order Information Remaining Occurrences:0 /1 Interval:ONE TIME Last released:12/05/2019 Released orders: SunDec 05, 2019 2:41 PM by: RITIKA CANAS Reason for Consult: -> adverse med reaction Did you call or speak to t he consulting provider? -> No Consult To -> Dr Aguirre Schedule When? -> TODAY CON9 IP CONSULT TO N EUROLOGY [#[id number]] Priority: STAT Class: Hospital Performed Standing Order Information Remaining Occurrences:0/1 Interval:ONE TIME Last released:12/05/2019 Released orders : SunDec 05, 2019 2:41 PM by: RITIKA CANAS Reason for Consult: -> encephalopathy adverse drug reaction Did you call or speak to the consulting provider? -> No Consult To -> Dr Jacob Schedule When? -> TODAY CON53 IP CONSULT TO PSYCHIATRY [#[id number]] Priority: STAT Class: H ospital Performed Reason for Consult: -> adverse med reaction Did you call or speak to the consulting provider? -> No Consult To -> Dr Aguirre Schedule When? -> TODAY Released on: 12/05/2019 2:41 P M CON9 IP CONSULT TO NEUROLOGY [#[id number]] Priority: STAT Class: Hospital Performe d Reason for Consult: -> encephalopathy adverse drug reaction Did you call or speak to the consulting provider? -> No Consult To -> Dr Jacob Schedule When? -> TODAY Released on: 12/05/2019 2:41 P M [id number] INITIAL PHYSICIAN ORDER: OBSERVATION* [#[id number]] Priority: Routine Class: ADT Pend Trans milvia Standing Order Information Remaining Occurrences:0/1 Interval:ONE TIME Last release d:12/05/2019 Released orders: SunDec 05, 2019 2:00 PM by: LUZ ELENA GATES Patient Class: -> OBS ERVATION Admitting Diagnosis -> Encephalopathy acute Admitting Physician -> CARLA OTERO Attending Physician -> CARLA OTERO [id number] INITIAL PHYSICIAN ORDER: OBSERVATION* [#[id number]] Priority: Routine Class: ADT Pend Transfer Patient Class: -> OBSERVATION Admitting Diagnosis -> Encephalopathy acute Admitting Physician -> CARLA OTERO Attending Physician -> CARLA OTERO Released on: 12/05/2019 2:00 PM [id number] INITIAL PHYSICIAN ORDER: INPATIENT [#[id number]] Pristeph brayy: Routine Class: ADT Pend Transfer [...] o- n- ) Admitting Diagnosis - > Euz-lvql-ldsring adverse reaction to medication Admitting Physician -> RITIKA CANAS Physician -> RITIKA CANAS Estimated Length of Stay -> 5-7 Midnights Discharge Plan: -> Other (Specify) [id number] INITIAL PHYSICIAN ORDER: INPATIENT [#[id number]] Priority: Routine Class: ADT Pend Tr ansfer [...] i- o- n- ) Admitting Diagnosis -> Fia-tfvq-xzyjapj adverse reaction to medication Admitting Physician -> RITIKA CANAS Attending Physician -> MARY CANAS Estimated Length of Stay -> 5-7 Midnights Discharge Plan: -> Other (Specify) [id number] INITI AL PHYSICIAN ORDER: INPATIENT [#[id number]] Priority: Routine Class: ADT Pend Transfer Status: [...] i- o- n- ) Admitting Diagnosis -> Bht-pftm-udbxrzv adverse reaction to medication Admitting Physician -> RITIKA CANAS Attending Physician -> MARY CANAS Estimated Length of Stay -> 5-7 Midnights Discharge Plan: -> Other (Specify) Released on: 12/05/2019 2:41 PM [id number] INITIAL PHYSICIAN ORDER: INPATIENT [#[id number]] Priority: Routine Class : ADT Pend Transfer [...] o- n- ) Adm itting Diagnosis -> Oiv-rawh-jpimzni adverse reaction to medication Admitting Physician -> RITIKA CANAS Attending Physician -> RITIKA CANAS Estimated Length of Stay -> 5-7 Midnights Discharge Plan: -> Other (Specify) Released on: 12/05/2019 2:41 PM COD2 FULL CODE [#[id number]] Priority: STAT Class: Hospital Performed Standing Order Information Remaining Occurrences:0 /1 Interval:CONTINUOUS Last released:12/05/2019 Released orders: SunDec 05, 2019 2:41 PM by: RITIKA CANAS COD2 FULL CODE [#[id number]] Priority: STAT Cl ass: Hospital Performed Released on: 12/05/2019 2:41 PM [id number] EEG 12-26 HR W/VIDEO [# [id number]] Priority: Routine Class: Hospital Performed Standing Order Information Remaining Occurre nces:0/1 Interval:ONE TIME Last released:12/05/2019 Released orders: SunDec 04 3:19 PM by: JOSE KHAN Reason for Exam: -> ams [id number] EEG 12-26 HR W/VIDEO [#[id number]] Priority: STAT Class: Hospital Performed Resulting Agency: [facility] EEG Test ID: NEU1 [id number] Reason for Exam: -> ams Released on: 12/05/2019 3:19 Maxwell Corona MR#: [id number] * Rm: [id number] 01Ht: 5' 5" Wt: 300 lb Code: Full Code Iso:Diagnosis:Encep halopathy acute [G93.40]Allergies: No Known Allergies -------- Current as of: 12/05/191806 NB=New Bag --aspirin (ASPIRIN) tablet 325 mg #[id number] Admin Amount: 1 Tab (1 x 325 mg Tab) Ordered Dose: 325 mg Route: Oral Freq: ONCE Start Date: 12/24/13 No administration times (back 96 hours, ahead 96 hours). ------diphenhydrAMINE (BENADRYL) capsule 50 mg #[id number] Admin Amount: 1 Cap (1 x 50 mg Cap) Ordered Dose: 50 mg Route: Ora l Freq: NOW Start Date: 12/24/13 No administration times (back 96 hours, ahe ad 96 hours). ------diazepam (VALIUM) tablet 5 mg #[id number] Admin Amount: 1 Tab (1 x 5 mg Tab) Ordered Dose: 5 mg Route: Oral Freq: ON CE Start Date: 12/24/13 No administration times (back 96 hours, ahead 96 hours). ------lidocaine (XYLOCAINE) 10 mg/mL (1 %) injection 1-30 mL #[id number] Admin Amount: 1-30 mL Ordered Dose: 1-30 mL Route: IntraDERMal Freq: ONCE Start Date: 12/24/13 No administration times (back 96 hours, ahead 96 hours). ------heparin (PF) 2 units/ml in NS infusion 2,000 Units #[id number] Admin Amount: 1,000 mL = 2,000 Units of 2 Units/mL Ordered Dose: 1,000 mL Ro [place]: Irrigation Freq: ONCE Start Date: 12/24/13 No administration times (back 96 hours, ahead 96 hours). ------heparinized saline 2 units/mL infusion 1,000 Units #[id number] Admin Amount: 500 mL = 1,000 Units of 2 Units/mL Ordered Dose: 500 mL Ro [place]: IntraarTERial Freq: ONCE Start Date: 12/24/13 No administration times (back 96 hours, ahead 96 hours). ------0.9% sodium chloride infusion #[id number] Ordered Dose: 75 mL/hr Route: IntraVENous Freq: CONTINUOUS Start Date: 12/24/13 Rate: 75 mL/hr Duration: No administration times (back 96 hours, ahead 96 hours). ------ioversol (OPTIRAY) 320 mg iodine/mL contrast injection 1-100 mL #[id number] Admin Amount: 1-100 mL Ordered Dose: 1-100 mL Route: IntraVENous Freq: RAD O NCE Start Date: 12/24/13 No administration times (back 96 hours, ahead 96 hours).Maxwell Bray MR#: [id number] * Rm: 441-01Ht: 5' 5.75" Wt: 300 lb Cod e: Full Code Iso:Diagnosis:Encephalopathy acute [G93.40]Allergies: No Known Allergies -------- Current as of: 12/05/19 180 NB=New Bag --gadobutrol (GADAVIST) contrast solution 1-10 mL #[id number] Admin Amount: 1-10 mL Ordered Dose: 1-10 mL Route: IntraVENous Freq: RAD O NCE Start Date: 01/13/14 No administration times (back 96 hours, ahead 96 hours). ------sodium chloride (NS) flush 5-10 mL #[id number] Admin Amount: 5-10 mL Ordered Dose: 5-10 mL Route: IntraVENous Freq: RAD ONCE Start Date: 01/13/14 No administration times (back 96 hours, ahead 96 hours). ------sodium chloride (NS) 0.9 % flush #[id number] Ordered Dose: Route: Freq: Start Date: 01/13 No administration times (back 96 hours, ahead 96 hours). ------morphine injection 2 mg #[id number] Admin Amount: 1 mL = 2 mg of 2 mg/mL Ordered Dose: 2 mg Route: IntraVENous Freq: NOW Start Date: 03/13/15 No administration times (back 96 hours, ahe ad 96 hours). ------influenza vaccine (4 yr+)(PF) (FLUCELVAX QUAD) inj ection 0.5*#[id number] Admin Amount: 0.5 mL Ordered Dose: 0.5 mL Route: IntraMUSCular Freq: PRIOR TO DISCHARGE Start Date: 03/30/16 No administration times (back 96 hours, ahead 96 hours). ------oxyCODONE-acetaminophen (PERCOCET) 5-325 mg per tablet 1 Tab #[id number] Admin Amount: 1 Tab Ordered Dose: 1 Tab Route: Oral Freq: NOW Start Date: 09/07/17 No administration times (back 96 hours, ahead 96 hours). ------barium sulfate (READICAT) 2.1 % (w/v), 2.0 % (w /w) oral suspension 9*#[id number] Admin Amount: 900 mL Ordered Dose: 900 mL Route: Oral Delgado q: RAD ONCE Start Date: 10/15/17 No administration times (back 96 hours, ahead 96 hours). ------iopamidol (ISOVUE 300) 61 % contrast injection 100 mL #[id number] Admin Amount: 100 mL Ordered Dose: 100 mL Route: IntraVENous Freq: RAD ONC E Start Date: 10/15/17 No administration times (back 96 hours, ahead 96 hours).Maxwell Bray MR#: [id number] * Rm: 441-01Ht: 5' 5.75" Wt: 300 lb Code: Full Code Iso:Diagnosis:Encephalopathy acute [G93.40]Allergies: No Known Allergies -------- Current as of: 12/05/19 180 NB=New Bag --risperiDONE (RisperDAL m-tabs) disintegrating tablet 1 mg #[id number] Admin Amount: 1 Tab (1 x 1 mg Tab) Ordered Dose: 1 mg Route: Oral Freq: ONCE Start Date: 12/24/17 No administration times (back 96 hours, ahead 96 hours). ------ALPRAZolam (XANAX) tablet 2 mg #[id number] Admin Amount: 4 Tab (4 x 0.5 mg Tab) Ordered Dose: 2 mg Route: Ora l Freq: NOW Start Date: 12/24/17 No administration times (back 96 hours, ahe ad 96 hours). ------lamoTRIgine (LaMICtal) tablet 100 mg #[id number] Admin Amount: 1 Tab (1 x 100 mg Tab) Ordered Dose: 100 mg Route: Oral Delgado q: ONCE Start Date: 12/24/17 No administration times (back 96 hours, ahead 96 hours). ------OLANZapine (ZyPREXA zydis) disintegrating tablet 5 mg #[id number] Admin Amount: 1 Tab (1 x 5 mg Tab) Ordered Dose: 5 mg Route: Oral Delgado q: ONCE Start Date: 12/25/17 No administration times (back 96 hours, ahead 96 hours). ------LORazepam (ATIVAN) tablet 2 mg #[id number] Admin Amount: 4 Tab (4 x 0.5 mg Tab) Ordered Dose: 2 mg Route: Ora l Freq: NOW Start Date: 12/25/17 No administration times (back 96 hours, [facility] ad 96 hours). ------LORazepam (ATIVAN) injection 1 mg #[id number] Admin Amount: 0.5 mL = 1 mg of 2 mg/mL Ordered Dose: 1 mg Route: Int Katherin Freq: NOW Start Date: 12/25/17 No administration times (back 96 hours, e ad 96 hours). ------barium sulfate (EZ PAQUE) 96 % (w/w) contrast suspension 17 6 g #[id number] Admin Amount: 176 g Ordered Dose: 176 g Route: Oral Freq: RAD ONCE Start Date: 08/02/18 No administration times (back 96 hours, ahead 96 hours). ------barium sulfate (EZ PAQUE) 96 % (w/w) contrast s uspension 176 g #[id number] Admin Amount: 176 g Ordered Dose: 176 g Route: Oral Delgado q: RAD ONCE Start Date: 08/02/18 No administration times (back 96 hours, ahead 96 hours).Maxwell Ritter MR#: [id number] * Rm: 441-01Ht: 5' 5.75" Wt: 300 lb Cod e: Full Code Iso:Diagnosis:Encephalopathy acute [G93.40]Allergies: No Known Allergies -------- Current as of: 12/05/191806 NB=New Bag --aspirin chewable tablet 162 mg #[id number] Admin Amount: 2 Tab (2 x 81 mg Tab) Ordered Dose: 162 mg Route: Oral Freq: NOW Start Date: 08/10/19 No administration times (back 96 hours, ahead 96 hours). ------0.9% sodium chloride infusion 1,000 mL #[id number] Admin Amount: 1,000 mL Ordered Dose: 1,000 mL Route: IntraVENous Freq: ONC E Start Date: 08/16/19 Rate: 1,000 mL/hr Duration: No administration ti mes (back 96 hours, ahead 96 hours). ------methylPREDNISolone (PF) (Solu-MEDROL) injection 125 mg #[id number] Admin Amount: 2 mL = 125 mg of 125 mg/2 mL Ordered Dose: 125 mg Route: Int raVENous Freq: NOW Start Date: 08/16/19 No administration times (back 96 hours, ahe ad 96 hours). ------aspirin chewable tablet 162 mg #[id number] Admin Amount: 2 Tab (2 x 81 mg Tab) Ordered Dose: 162 mg Route: Oral Delgado q: NOW Start Date: 08/16/19 No administration times (back 96 hours, ahead 96 hours). ------haloperidoL (HALDOL) tablet 5 mg #[id number] Admin Amount: 1 Tab (1 x 5 mg Tab) Ordered Dose: 5 mg Route: Oral Delgado q: ONCE Start Date: 10/30/19 No administration times (back 96 hours, ahead 96 hours). ------cefTRIAXone (ROCEPHIN) 1 g in 0.9% sodium chloride (MBP/ADV) 50 m L M*#[id number] Admin Amount: 1 g Ordered Dose: 1 g Route: IntraVENous Freq: NOW Start Date: 12/05/19 Rate: 100 mL/hr Duration: 30 Minutes Administration linda es (back 96 hours, ahead 96 hours): 12/05/19: 1428NB -----0.9% sodium chloride infusion #[id number] Ordered Dose: 125 mL/hr Route: IntraVENous Freq: CONTINUOUS Start Date: 12/05/19 Rate: 125 mL/hr Duration: Administration times (back 96 hours, ahead 96 hours): 12/05/19: 1408NBLuisitoMaxwell donovan MR#: [id number] * Rm : 441-01Ht: 5' " Wt: 300 lb Code: Full Code Iso:Diagnosis:Encephalopathy acute [G93. 40]Allergies: No Known Allergies -------- Current as of: 12/05/19 1807 NB=New Bag --enoxaparin (LOVENOX) injection 40 mg #[id number] Admin Amount: 0.4 mL = 40 mg of 40 mg/0.4 mL Ordered Dose: 40 mg Ro swinomish: SubCUTAneous Freq: EVERY 24 HOURS Start Date: 12/05/19 Administration times (back 96 h ours, ahead 96 hours): 12/05/19: 209912/06/19: 209912/07/19: 209912/08/19: 2099 ---furosemide (LASIX) injection 20 mg #[id number] Admin Amount: 2 mL = 20 mg of 10 mg/mL Ordered Dose: 20 mg Ro swinom[place]: IntraVENous Freq: ONCE Start Date: 12/05/19 Administration [...] ormationFollow-up With:Ritika Canas MDDetails:Comments:Contact Info:[place] [address] Sosa [phone] Name Value Range Interpretation Code Description Data Melani rce(s) Supporting Document(s ) ID Date Data Source [id number] 12/05/2019 04:36:09 PM EDT [facility] The history is provided by the [...] of morbidity or mortality cardiac cath at [facility] approx 6-8 months ag [...] week Gets together: Once a week Attends voodoo service: More than 4 times per year [...] QTC Calculation (Bezet) 515 ms Calculated P [place] 40 degrees Calculat ed R [place] 41 degrees Calculated T [place] 147 degrees Diagnosis Sinus tachycardiaProb able left [...] Time: 12/05/19 12:38 PMResult Value Ref Range [place] level 1.53 (HH) 0.6 - 1.2 MMOL/LLACTIC ACID Collection Time: 12/04 12:40 PMResult Value Ref Range Lactic acid 1.1 0.4 - 2.0 MMOL/LEKG:Sinus tachy cardia at 100 BPM, normal axis, nothing acute.Interpreted by Julio Manzo MD11:2 0 AM cardiac cath lab manager reading shows sinus tachycardia at 100 [...] cardiac monitoring, CXR, and head CT. Will rivet hole puncher ocephin, IV fluids, and oxygen. Will consult [...] Supporting Document(s ) ID Date Data Source [id number] 12/05/2019 04:05:06 PM EDT [facility] [address] [place] [address] [id number] CONSULT NOTEPatient: Maxwell Bray Se x: male [...] or sensory fuentes es. Lab significant of [place] 1.53 and elevatedliver enzymes. Neurology consult ed for encephalopathy/drug adverse reaction.Past Medical History:Diagnosis Date Other unknown and unspecified cause of morbidity or mortality cardiac cath at [facility] approx 6-8 months ago [...] QTC Calculation (Bezet) 515 ms Calculated P [place] 40 degrees Calculated R [place] 41 degrees Calculated T [place] 147 degrees Diagnosis Sinus tachycardiaProbable left atrial [...] Time: 12/05/19 12:38 PMResult Value Ref Range [place] level 1.53 (HH) 0.6 - 1.2 MMOL/LLACTIC [...] were created on an independent workstation. [facility]izing [facility] the examination was performed to [...] QTC Calculation (Bezet) 515 ms Calculated P [place] 40 degrees Calculat ed R [place] 41 degrees Calculated T [place] 147 degrees Diagnosis Sinus tachycardiaProb able left [...] adalberto M79.2 Seizure disorder (HCC) G40.909 Spells [id number] Severe obesity (HCC) E66 .01 Depression F32.9 Anxiety F41.9 Bipolar disorder (HCC) F31.9 Depressive disorde r F32.9 Status post gastric bypass for obesity Z98.84 Morbid obesity (HCC) E66 .01 Mixed anxiety and depressive disorder F41.8 Vitamin D deficiency E55.9 Bipol ar disorder with severe depression (HCC) F31.4 Encephalopathy acute G93.40 Adve rse drug reaction, initial encounter T50.905A Obe-ozai-lqcoimf adverse reaction to me dication T88.7XXA49 year old male with pmh as stated above and now with AMS and genera lizedweakness - most likely secondary to lithium toxicity - ? Seizure.Plan: Mri Brain Ammonia Monitor lithium level daily EEG - 24 hrs Seizure precautionsPaulson Gerald Flores 2019 3:19 [id number] Name Value Range Interpretation Code Description Data Melani rce(s) Supporting Document(s ) ID Date Data Source [id number] 12/05/2019 03:37:45 PM EDT [facility] sbar-q given to Ev berger to floor Name Value Range Interpretation Code Description Data Melani rce(s) Supporting Document(s ) ID Date Data Source [id number] 12/05/2019 03:29:57 PM EDT [facility] sbar-q given to Sheri UGALDE on floor Name Value Range Interpretation Code Description Data Melani rce(s) Supporting Document(s ) ID Date Data Source [id number] 12/05/2019 03:28:02 PM EDT [facility] History & PhysicalBrian Anam Bray [...] h igh dose amytriptylene 200 mg nightly, [place], andVraylar 6 mg. :[place] level on prior admission therapeutic. Patient's wifecontactedthis [...] of morbidity or mortality cardiac cath at [facility] approx 6-8 months ag [...] week Gets together: Once a week Attends voodoo service: More than 4 times per year [...] Calculati on (Bezet) 515 ms Calculated P [place] 40 degrees Calculated R [place] 41 degrees Elena culated T [place] 147 degrees Diagnosis Sinus tachycardiaProbable left atrial [...] Time: 12/05/19 12:38 PMResult Value Ref Range [place] level 1.53 (HH) 0.6 - 1.2 MMOL/LLACTIC ACID Collection Time: 12/04 12:40 PMResult Value Ref Range Lactic acid 1.1 0.4 - 2.0 MMOL/All lab results for the last 24 hours reviewed. Serun [place] level toxicAssessment/PlanPrinci pal Problem: Adverse drug reaction, initial encounter (12/05/2019) LithiumActive Prob lems: Encephalopathy acute (12/05/2019) Nzv-ywhz-lfmrajm adverse reaction to med ication (12/05/2019)Neuro, and psych evaluation, hydrationGeorge MD Corey Name Value Range Interpretation Code Description Data Melani rce(s) Supporting Document(s ) ID Date Data Source [id number] 12/06/2019 12:36:10 PM EDT [facility] Name Value Range Interpretation Description Data Sup porting Code Source(s) Document(s ) Service comment [facility] Bacteria [facility] - Good identified in [facility] specimen by Culture ID Date Data Source [id number] 12/05/2019 04:18:26 PM EDT [facility] - Good [facility] Name Value Range Interpretation Description Data Sup porting Code Source(s) Document(s ) Color of Urine YEL Abnormal (applies [facility] - to non-numeric Good results) [facility] Appearance of CLEAR Abnormal (applies [facility] - Urine to non-numeric Good results) [facility] Specific gravity 1.033 1.003-1. Above high normal [facility] - of Urine by 030 Good Refractometry [facility] pH of Urine by 5.5 4.6-8.0 [facility] - Test strip Good [facility] Protein 30 mg/dL NEG Abnormal (applies [facility] - [Mass/volume] in to non-numeric Good Urine by Test results) [facility] Glucose NEG [facility] - [Mass/volume] in Good Urine by [facility] Automated test [facility] strip Ketones 15 mg/dL NEG Abnormal (applies [facility] - [Presence] in to non-numeric Good Urine by results) [facility] test [facility] strip Bilirubin.total NEG Abnormal (applies [facility] - [Presence] in to non-numeric Good Urine results) [facility] Hemoglobin NEG [facility] - [Presence] in Good Urine by Test [facility] Urobilinogen 1.0 0.2-1.0 [facility] - [Presence] in EU/dL Good Urine by [facility] Automated test [facility] strip Nitrite NEG [facility] - [Presence] in Good Urine by [facility] test Hospital strip Leukocyte NEG [facility] - esterase Good [Presence] in [facility] Urine by Hospital Automated test strip Leukocytes 0-5 [facility] - [Presence] in Good Urine sediment [facility] by [facility] microscopy Erythrocytes 0-2 [facility] - [#/area] in Good Urine sediment [facility] by [facility] high power field Epithelial cells 0-10 [facility] - [#/area] in Good Urine sediment [facility] by [facility] high power field Bacteria NONE Abnormal (applies [facility] - [Presence] in to non-numeric Good Urine sediment results) [facility] by [facility] microscopy ID Date Data Source [id number] 12/05/2019 03:26:35 PM EDT [facility] Name Value Range Interpretation Description Data Sup porting Code Source(s) Document(s ) Bilirubin NEG [facility] [Presence] in [facility] Urine by Hospital Confirmatory method ID Date Data Source [id number] 12/05/2019 02:22:27 PM EDT [facility] I spoke to Dr. Canas regarding Observation Status. Dr. Canas said patient will bemade In Patient Status today. Name Value Range Interpretation Code Description Data Melani rce(s) Supporting Document(s ) ID Date Data Source [id number] 12/05/2019 02:03:27 PM EDT [facility] SW/Psych Screener attempted to meet with Pt for MH evaluation. Pt was foundlying on stretcher with his eyes open, staring at the wall. Dinner Cook knows this Ptfrom previous admission to the medical floor. When ask ed if Pt rememberedwriter, Pt appeared confused, but said he did. Pt stated he fell today, doesn'tremember how he was brought to the hospital. Pt appeared to be searching for hiswords and was having difficulty speaking. Pt unclear of where he is, stating"[place]" when asked where he was and "[place]" when asked what month it was. Whenasked if Pt was exhibiting any feelings of S/I, H/I or A/V Hallucinatio ns, Ptresponded with, "No," and confirmed he has been compliant with his psychiatricm edications. Dinner Cook conferred with ER Attending, Dr. Manzo, who states that Ptwi ll most likely be medically admitted at this time.Krystina Centeno LM, CASAC-2 Name Value Range Interpretation Code Description Data Melani rce(s) Supporting Document(s ) ID Date Data Source [id number] 12/05/2019 12:53:37 PM EDT [facility] CT HEAD W/O CONTRASTPRIOR: Multiple: [...] Supporting Document(s ) ID Date Data Source [id number] 12/05/2019 01:31:37 PM EDT [facility] Name Value Range Interpretation Description Data Sup porting Code Source(s) Document(s ) Lactate 1.1 0.4-2.0 [facility] - Good [Moles/volu MMOL/L [facility]] in Hospital Serum or Plasma ID Date Data Source [id number] 12/10/2019 05:19:22 AM EDT [facility] Name Value Range Interpretation Description Data Sup porting Code Source(s) Document(s ) Service comment [facility] Bacteria [facility] - Good identified in [facility] specimen by Culture ID Date Data Source [id number] 12/05/2019 02:14:34 PM EDT [facility] Name Value Range Interpretation Description Data Sup porting Code Source(s) Document(s ) [place] 1.53 0.6-1.2 Above upper panic [facility] - Good [Moles/volu MMOL/L limits [facility]] in Hospital Serum or Plasma CALLED TO AND READ BACK BYSUSI GAMBLE 1414 12/05/19 [facility] GORGE MARY ID Date Data Source [id number] 12/05/2019 01:31:37 PM EDT [facility] Name Value Range Interpretation Description Data Sup porting Code Source(s) Document(s ) Troponin 0.00-0.05 [facility] - Good I.cardiac [facility] [Mass/volume Hospital ] in Serum or Plasma [...] to 1.50 ng/mL ID Date Data Source [id number] 12/05/2019 01:31:37 PM EDT [facility] Value Range Interpretation Description Data Sup porting Code Source(s) Document(s ) Sodium 134 136-145 Below low normal [facility] - [facility] [Moles/volume] mmol/L [facility] in Serum or Hospital Plasma Potassium 3.5 3.5-5.1 [facility] - [facility] [Moles/volume] mmol/L [facility] in Serum or Hospital Plasma Chloride 104 98-107 [facility] [Moles/volume] mmol/L [facility] in Serum or Hospital Plasma Carbon 26 21-32 [facility] - Good dioxide, total mmol/L [facility] [Moles/volume] Hospital in Serum or Plasma Anion gap in 7 mmol/L 10-20 Below low normal [facility] - Go od Serum or [facility] Glucose 127 74-106 Above high normal [facility] [Mass/volume] mg/dL [facility] in Serum or Hospital Plasma Urea nitrogen 21 mg/dL 7-18 Above high normal [facility] - [facility] [Mass/volume] [facility] in Serum or Hospital Plasma Creatinine 0.94 0.70-1.3 [facility] - [facility] [Mass/volume] mg/dL 0 [facility] in Serum or Hospital Plasma Glomerular >60 [facility] - Good filtration [facility] rate/1.73 sq M Hospital predicted among blacks [Volume Rate/Area] in Serum or Plasma by Creatinine-bas ed formula (MDRD) Glomerular >60 [facility] - Good filtration [facility] rate/1.73 sq M Hospital predicted among non-blacks [Volume Rate/Area] in Serum or Plasma by Creatinine-bas ed formula (MDRD) (NOTE)Estimated GFR is calculated using the Modification of Diet in RenalDisease (MDRD) Study equation, reported for both Americans(GFRAA) and non- Americans (GFRNA), and normalized to 1.7 5s4zhzj surface area. The physician must decide which [...] normal [facility] - Good Serum or Plasma [facility] Bilirubin.total 0.9 mg/dL 0.2-1.0 [facility] - [facility] [Mass/volume] in Serum or [facility] Plasma Alanine aminotransferase 34 U/L 13-61 [facility] - Good [Enzymatic activity/volume] [facility] in Serum or Plasma Aspartate aminotransferase 47 U/L 15-37 Above high [facility] - Good [Enzymatic activity/volume] normal [facility] in Serum or Plasma by With P-5'-P Alkaline phosphatase 171 U/L 45-117 Above high [facility] - Good [Enzymatic activity/volume] normal [facility] in Serum or Plasma Protein [Mass/volume] in 7.5 g/dL 6.4-8.2 [facility] - Good Serum or Plasma [facility] Albumin [Mass/volume] in 3.8 g/dL 3.5-4.7 [facility] - Good Serum or Plasma by [facility] Bromocresol purple (BCP) dye binding method Globulin [Mass/volume] in 3.7 g/dL 1.7-4.7 [facility] - Good Serum by calculation [facility] Albumin/Globulin [Mass 1.0 0.7-2.8 [facility] - Good Ratio] in Serum or Plasma [facility] ID Date Data Source [id number] 12/05/2019 01:31:37 PM EDT [facility] - Good [facility] Name Value Range Interpretation Description Data Sup porting Code Source(s) Document(s ) Magnesium 2.9 mg/dL 1.6-2.6 Above high normal [facility] - Good [Mass/volume] [facility] in Serum or Hospital Plasma ID Date Data Source [id number] 12/05/2019 01:20:04 PM EDT [facility] - Good [facility] Name Value Range Interpretation Description Data Sup porting Code Source(s) Document(s ) Prothrombin 10.6 sec 9.4-11.1 [facility] - Good time (PT) [facility] INR in 1.0 0.8-1.2 [facility] - Good Platelet poor [facility] plasma by [facility] Coagulation assay ID Date Data Source [id number] 12/05/2019 01:07:21 PM EDT [facility] - Good [facility] Name Value Range Interpretation Description Data Sup porting Code Source(s) Document(s ) Leukocytes 12.4 4.8-10.6 Above high normal [facility] - [#/volume] in K/uL Good Blood by [facility] Automated count [facility] Erythrocytes 5.03 4.70-6.0 [facility] - [#/volume] in M/uL 0 Good Blood by [facility] Hemoglobin 15.4 14.0-18. [facility] - [Mass/volume] in g/dL [address] [facility] Hematocrit 45.8 % 42.0-52. [facility] - [Volume 0 Good Fraction] of [facility] Blood by [facility] Automated count Erythrocyte mean 91.1 FL 81.0-94. [facility] - corpuscular 0 Good volume [Entitic [facility] volume] by [facility] Automated count Erythrocyte mean 30.6 PG 27.0-35. [facility] - corpuscular 0 Good hemoglobin [facility] [Entitic mass] Hospital by Automated count Erythrocyte mean 33.6 30.7-37. [facility] - corpuscular g/dL 3 Good hemoglobin [facility] [Mass/volume] by Automated count Erythrocyte 12.9 % 11.5-14. [facility] - distribution 0 Good width [Ratio] by [facility] Automated count Hospital Platelets 164 K/uL 130-400 [facility] - [#/volume] in [facility] Blood by [facility] Automated count [facility] Platelet mean 9.5 FL 9.2-11.8 [facility] - volume [Entitic Good volume] in Blood [facility] by Automated Hospital count Nucleated 0.0 PER 0 [facility] - erythrocytes/100 100 WBC Good leukocytes [facility] [Ratio] in Blood [facility] Nucleated 0.00 0.0-0.01 [facility] - erythrocytes K/uL Good [#/volume] in [facility] Segmented 80 % 48.0-72. Above high normal [facility] - neutrophils/100 0 [facility] leukocytes in [facility] Lymphocytes/100 8 % 18.0-40. Below low normal [facility] - leukocytes in 0 [facility] Monocytes/100 10 % 2.0-12.0 [facility] - leukocytes in [facility] Eosinophils/100 1 % 0.0-7.0 [facility] - leukocytes in [facility] Basophils/100 0 % 0.0-3.0 [facility] - leukocytes in [facility] Immature 0 % 0-0.5 [facility] - granulocytes/100 Good leukocytes in [facility] by Hospital Automated count Segmented 10.0 2.3-7.6 Above high normal [facility] - neutrophils K/UL Good [#/volume] in [facility] Lymphocytes 1.0 K/UL 0.9-4.2 [facility] - [#/volume] in [facility] Monocytes 1.2 K/UL 0.1-1.7 [facility] - [#/volume] in [facility] Eosinophils 0.1 K/UL 0.0-1.0 [facility] - [#/volume] in [facility] Basophils 0.0 K/UL 0.0-0.4 [facility] - [#/volume] in [facility] Immature 0.1 K/UL 0.0-0.17 [facility] - granulocytes Good [#/volume] in [facility] by Hospital Automated count Differential [facility] - cell count Good method - Blood [facility] ID Date Data Source [id number] 12/10/2019 05:19:23 AM EDT [facility] Name Value Range Interpretation Description Data Sup porting Code Source(s) Document(s ) Service comment [facility] Bacteria [facility] identified in [facility] specimen by Culture ID Date Data Source [id number] 12/05/2019 12:24:35 PM EDT [facility] PELVIS one view.History: TraumaThe study is suboptimal due to the patient's body habitus.There is no evidence of fracture , dislocation, subluxation, bone erosion orarthritis.IMPRESSION: Grossly normal s tudy. Signing date/time: 12/05/2019 12:24 PMSigned by: CURTIS VARMA Name Value Range Interpretation Code Description Data Melani rce(s) Supporting Document(s ) ID Date Data Source [id number] 12/05/2019 12:23:11 PM EDT [facility] CHEST 1 view (s)HISTORY: Chest [...] Supporting Document(s ) ID Date Data Source [id number] 12/05/2019 11:34:39 AM EDT [facility] BIBA for fall in the middle of the night while going to bathroomC/p left hip pain Name Value Range Interpretation Code Description Data Melani rce(s) Supporting Document(s ) ID Date Data Source [id number] 12/05/2019 11:21:27 AM EDT [facility] Please enter the current weight for this patient in [facility]. Thank you. Name Value Range Interpretation Code Description Data Melani rce(s) Supporting Document(s ) ID Date Data Source [id number] 11/23/2019 02:02:47 PM EDT [facility] Discharge SummaryPatient: Maxwell mackey Sex: male [...] E66.01ICD-9-CM: 278.01 07/19/2018 - Present Spells ICD-10-CM: [id number]-2-NU: IMO00 01 04/08/2016 - Present Seizure disorder [...] tr eated with parenteral hydration with benefit g4qqmojpbczzvezmmud responses. Of note i s fact that [...] Supporting Document(s ) ID Date Data Source [id number] 11/03/2019 09:41:35 PM EDT [facility] Verbal shift change report given to , RN (oncoming nurse) by Scott Beverly RN (offgoing nurse). Report included the fo llowing information SBAR, Kardex,Intake/Output, MAR and Recent Res ults. Name Value Range Interpretation Code Description Data [facility](s) Supporting Document(s ) ID Date Data Source [id number] 11/03/2019 03:34:07 PM EDT [facility] Per psych note, CM to confirm patient ap pt with psychiatristCall to Dr Mateo Méndez office # [phone], office [facility] ent aware of # to call to make his own appt, psychiatry info placed on AVs [facility] ent states his will be coming [...] Network: Lives with Spouse, Own Home( [place] ,[phone])Confirm Follow Up Transport: FamilyThe Patient and/or Patient [...] Name Value Range Interpretation Code Description Data [facility](s) Supporting Document(s ) ID Date Data Source [id number] 11/03/2019 02:45:48 PM EDT [facility] PHYSICAL THERAPY TREATMENTPatient: Maxwell Bray [...] Supporting Document(s ) ID Date Data Source [id number] 11/03/2019 01:09:08 PM EDT [facility] General Daily Progress NoteAdmit Date: [...] past 8 hrs: BP Temp Pulse Resp FxE86211/03/19 0752 115 /76 97.6 F (36.4 C) [...] Supporting Document(s ) ID Date Data Source [id number] 11/03/2019 10:52:30 AM EDT [facility] S/O patient has seen for follow up via V ideo . He is doing much better. Hedenies any auditory or visual hallucination any mor eHe has no suicidal or homicidal thoughtsHe reports that he sees Dr. marie every ot her weeksPt wants to follow up with Dr. Marie after dischargePlan continue on a ll current psychotropic medications Requesting employment evaluator/case manager to confirm his a ppointment with Dr. mariebefore he discharged Please re consult if n eeded Name Value Range Interpretation Code Description Data [facility] rce(s) Supporting Document(s ) ID Date Data Source [id number] 11/03/2019 07:12:34 AM EDT [facility] Bedside and Verbal shift change report g iven to Meño Rose, RN (oncomingnurse) by June Ochoa RN (offgoing nurse). Repor t included the followinginformation SBAR, Kardex, Intake/Output, MAR, Recent Resul ts and Med Rec Status. Name Value Range Interpretation Code Description Data [facility]s ) ID Date Data Source [id number] 11/02/2019 11:18:25 PM EDT [facility] Problem: Falls - Risk ofGoal: [...] Harsh Scale and appropriate interventio ns in theault[facility] orr[facility] hospitalsheet.Outcome: Progressing Towards GoalNote: Pressure Injury Interv [...] Name Value Range Interpretation Code Description Data [facility] Supporting Document(s ) ID Date Data Source [id number] 11/02/2019 07:34:02 PM EDT [facility] Bedside shift change report given to GILLIAN KEATING (oncoming nurse) by Meño Rose(offgoing nurse). Report included the following information SBAR, Kardex andIntake/Output. Name Value Range Interpretation Code Description Data [facility](s) Supporting Document(s ) ID Date Data Source [id number] 11/02/2019 05:14:50 PM EDT [facility] Telehealth Progress NotePursuant to the [...] [] Telephone [x] VideoconferenceDate: 11/02/2019Accodarian Franny mber: [id number]: Maxwell Robin & M PROGRESS NOTE:Coordinated treatment team rounds conducted with psychiatrist, patient, nursesand/or social media assistant present ; dis cussions held with employment evaluator/case manager and/or familymembers; Chart reviewed in full in cluding specialty development consultant notes, ancillary staffnotes, vitals and labs [facility] EMR reviewed in full.SUBJECTIVE: Pt seen for first time on Video with my SW Mendy And RN , hereports less hallucinations , as they are still there in the morning But overall better since got back on vraylar told me was scheduled for ECT at [facility] but due to elective , [...] past 8 hrs: Temp Pulse Resp BP AhL187/20 1546 98.3 F (36.8 C) 84 18 [...] (LOVENOX) injection 40 mg 40 mg SubCUTAneous L40INkfjwsuph Medications:C urrent Facility-Administered MedicationsMedication Dose Route Frequen [...] ENOX) injection 40 mg 40 mg SubCUTAneous S75XXIPDAXTJLD/PLAN:Continue current kalie atment as pt is stabalizingPatient [...] Supporting Document(s ) ID Date Data Source [id number] 11/02/2019 03:02:33 PM EDT [facility] General Daily Progress NoteAdmit Date: Hospital [...] (LOVENOX) injection 40 mg 40 mg SubCUTAneous A17VTcavkqmgl:Patient Vitals for the past 8 hrs: BP [...] contrast. Sagittal and coronal reconstruction was performed.Uti KitLocate gyroscopic instrument tester algorithm the examination was performed to optimizeimaging [...] Supporting Document(s ) ID Date Data Source [id number] 11/02/2019 07:48:14 AM EDT [facility] Verbal shift change report given to Jody wells RN (oncoming nurse) by Juliane UGALDE (offgoing nurse). Report included the following information SBAR,Kardex, Intake/Output, MAR and Recent Results Name Value Range Interpretation Code Description Data Melani rce(s) Supporting Document(s ) ID Date Data Source [id number] 11/02/2019 05:41:52 AM EDT [facility] Patient AOX3 with periodic confusion. [...] Supporting Document(s ) ID Date Data Source [id number] 11/01/2019 08:46:30 PM EDT [facility] Problem: Falls - Risk ofGoal: [...] Name Value Range Interpretation Code Description Data [facility] Supporting Document(s ) ID Date Data Source [id number] 11/01/2019 08:00:09 PM EDT [facility] Verbal shift change report given to Ly vitale RN (oncoming nurse) by SUSI Palacio (offgoing nurse). Report included the following information SBAR,Intake/Output, MAR and Recent Results. Name Value Range Interpretation Code Description Data [facility] rce(s) Supporting Document(s ) ID Date Data Source [id number] 11/01/2019 03:49:42 PM EDT [facility] Adult Progress NoteDate: 11/01/2019Account Number: [id number]: Maxwell Mendieta TrimbleDiagnosis: History of mood and [...] D deficiency 09/04/2019 Anxiety 0 Bipolar disorder ([facility]) 07/21/2019 Depressive disorder 07/21/2019 Status p ost gastric bypass for obesity 07/21/2019 Morbid obesity (HCC) 07/21/2019 Severe obesity ([facility]) 07/19/2018 Spells 04/08/2016 Seizure disorder ([facility]) 04/30/2014 Insom kacey 11/04/2013 H/O [...] found.Assessment/Plan:Active Problems: Bipolar disorder with severe depression ([facility]) (10/29/2019)Psychotherapy (type and freque ncy) [...] (LOVENOX) injection 40 mg 40 mg SubCUTAneous M55GZen following information was reviewed and discussed: Patient [...] Supporting Document(s ) ID Date Data Source [id number] 11/01/2019 02:42:08 PM EDT [facility] General Daily Progress NoteAdmit Date: [...] past 8 hrs: BP Temp Pulse Resp EcH12911/01/19 0715 101/67 98 F (36.7 C) 70 [...] Sagittal and coronal reconstr uction was performed.Utilizing gyroscopic instrument tester algorithm the examination was performed to optimizeimaging [...] Prominent interstitial markings arefelt to reflect vascular micro computer data processor 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 Repeat PA andlateral views the chest are advised i f there is clinical concern for pneumoniaor congestive failure.Assessment:Active Pro blems: Bipolar disorder with severe depression (HCC) (10/29/2019)Plan:Marco g status Name Value Range Interpretation Code Description Data Melani rce(s) Supporting Document(s ) ID Date Data Source [id number] 11/01/2019 07:08:12 AM EDT [facility] Verbal shift change report given to Chandrakant Albert RN (oncoming nurse) Colin Hoffmann RN (offgoing nurse). Report incl uded the following informationSBAR, Kardex, Intake/Output, MAR and Recent Results. Name Value Range Interpretation Code Description Data [facility] rce(s) Supporting Document(s ) ID Date Data Source [id number] 10/31/2019 07:59:03 PM EDT [facility] Verbal shift change report given to Shreya adrian RN (oncoming nurse) by SUSI Palacio (offgoing nurse). Report included the following information SBAR,Kardex, Intake/Output, MAR and Recent Results. Name Value Range Interpretation Code Description Data [facility](s) Supporting Document(s ) ID Date Data Source [id number] 10/31/2019 05:09:32 PM EDT [facility] Telehealth ConsultationPursuant to the e [...] [] Telephone [x] VideoconferenceSubjective:Patient: Maxwell BrayMRN #: [id number]: [id number]: 49 y.o. Sex: maleAdm it Date: 10/29/2019Attending: [...] week Gets together: Once a week Attends voodoo service: More than 4 times per year [...] morbidity or mortal ity cardiac cath at [facility] approx 6-8 months ago [...] past 8 hrs: BP Temp Pulse Resp JxF292/02/11 0754 120/60 97.2 F (36.2 C) 70 20 95 %MENTA L STATUS EXAM:FINDINGS WITHIN NORMAL LIMITS (WNL) UNLESS OTHERWISE STATED BELOW:Sens orium OBUH2Jkcnpcyeo Well relatedAppearance: OverweightMotor Behavior: Not examined Speech: [...] Supporting Document(s ) ID Date Data Source [id number] 10/31/2019 04:37:18 PM EDT [facility] [place] [address] [place], [place] [address]FZNWTCU: MAXWELL BRAYMRN: [id number]: [id number]#: [id number] DATE: 10/29/2019 CONSULTATIONHISTORY OF PRESENT ILLNESS: The [...] and Klonopin.PAST MEDICAL HISTORY: Cardiac cath at [facility] six to eight months [...] Jose AGUIRRE, MDDD: 10/30/2019 14:44:41/BR /[id number] / [id number] Name Value Range Interpretation Code Description Data Melani rce(s) Supporting Document(s ) ID Date Data Source [id number] 10/31/2019 01:47:36 PM EDT [facility] General Daily Progress NoteAdmit Date: [...] Supporting Document(s ) ID Date Data Source [id number] 10/31/2019 12:59:26 PM EDT [facility] physical Therapy TREATMENTPatient: Maxwell Bray [...] Supporting Document(s ) ID Date Data Source [id number] 10/31/2019 07:10:46 AM EDT [facility] Bedside and Verbal shift change report g iven to Samy UGALDE (oncoming nurse)by Cristofer Valenzuela RN (offgoing nurse). Repo rt included the following information SBAR, Kardex, MARand Recent Results. Name Value Range Interpretation Code Description Data [facility] rce(s) Supporting Document(s ) ID Date Data Source [id number] 10/30/2019 11:27:14 PM EDT [facility] Problem: Falls - Risk ofGoal: [...] Supporting Document(s ) ID Date Data Source [id number] 10/30/2019 08:09:55 PM EDT [facility] Susi Garcia called as pt [...] be ordered as non formulary also At [facility] Name Value Range Interpretation Code Description Data [facility] rce(s) Supporting Document(s ) ID Date Data Source [id number] 10/30/2019 08:06:30 PM EDT [facility] Telephoned Dr. Oc tompkins pt's c/o new sy mptoms of hallucinations. Orderedreceived, relayed to RN, SUSI Marroquin on service shop foreman Name Value Range Interpretation Code Description Data [facility] Supporting Document(s ) ID Date Data Source [id number] 10/30/2019 08:01:35 PM EDT [facility] Verbal shift change report given to Cecilia wells (oncoming nurse) by Samy Albert RN (offgoing nurse). Report included the fo llowing information SBAR, ProcedureSummary, Intake/Output, MAR and Recent Results. Name Value Range Interpretation Code Description Data [facility] Supporting Document(s ) ID Date Data Source [id number] 10/30/2019 02:58:51 PM EDT [facility] Problem: Mobility Impaired (Adult and [...] of morbidity or mortality cardiac cath at [facility] approx 6-8 months ago [...] Home: NoneCritical Behavior:Neurologic State: AlertOrientation Level: Oriented Q8Rbooqjfgx: Appropriate for age attention/concentrationSafety/Judgement: Awareness of environmentSkin:Strength:Strength: [...] Supporting Document(s ) ID Date Data Source [id number] 10/30/2019 02:50:37 PM EDT [facility] Telehealth ConsultationPursuant to the e mergency [...] [] Telephone [] VideoconferenceSubjective:Patient: Maxwell BrayMRN #: [id number]: [id number]: 49 y.o. Sex: maleAdm it Date: 10/29/2019Attending: [...] Supporting Document(s ) ID Date Data Source [id number] 10/30/2019 02:06:26 PM EDT [facility] Care Management InterventionsPCP Verifie d by CM: YesPalliative Care Criteria Met (RRAT>21 & CHF Dx)?: NoMode of Transport at Discharge: Other (see comment)(family)Transition of Care Consu lt (CM Consult): Discharge PlanningPhysical Therapy Consult: NoOccupational Therapy Consult: NoSpeech Therapy Consult: NoCurrent Support Network: Lives with Spouse, Own Home( [place] [phone])Confirm Foll ow Up Transport: FamilyThe Patient and/or Patient Clinical Researcher was Provided with a Choice of Providerand [...] home with his , is completely independent PHYSICIAN GYNECOLOGIST, emanuel SMYTH. Patient normally works (pre-covid) and drives. CM dept roleexplained, patient is currently denying any HC or rehab needs and states hiswife will drive him home upon DC. PT eval is ordered and pending. CM dept laila lfollow if patient has any PT needs.CASE MANAGEMENT PSYCHOSOCIAL ASSESSMENTMaxwell Bray Admission Date: 10/29/2019MRN: [id number] of : 1970Current date: 10/30/2019DISCHARGE PLAN: homePatient Info rmation:Patients Preferred Name: brianPatient Arrived Via: StretcherTransferred from a [facility] facility: NoInformation Obtained From: [...] NoPCP: Ritika Canas MDAdmitting Provider: Cristi Canas MDCRITICAL ACCESS HOSPITAL INCHSA[facility] PHYSICIAN GYNECOLOGIST: naPayor: Payor: [facility] HEALTH PLAN / Plan: [facility] /Product Type: HMO /Seco ndary [...] Supporting Document(s ) ID Date Data Source [id number] 10/30/2019 12:38:13 PM EDT [facility] General Daily Progress NoteAdmit Date: Hospital day: .tdSubjective:Patient markedly improved this am, speech now no rmal. Denies possibleinadvertent overdose of chronic meds. Accepting of psych consult . PT toevaluate. Claims symptoms of mild nausea. Meds reviewed claims to be takin gElavil G 150 mg HS ,Klonopin 1 mg twice a day, [place] 300 twice daily, Vraylar3 m g dailyCurrent [...] past 8 hrs: BP Temp Pulse Resp [id number]/30/19 0727 (!) 130/96 98 F (36.7 C) [...] Name Value Range Interpretation Code Description Data [facility] rce(s) Supporting Document(s ) ID Date Data Source [id number] 10/30/2019 07:52:05 AM EDT [facility] [facility] Verbal shift change report given to Chandrakant rosa RN (oncoming nurse) Tavares UGALDE (offgoing nurse). Report included the [facility] information SBAR,Kardex, Procedure Summary, Intake/Output, MAR and Recent R esults. Name Value Range Interpretation Code Description Data [facility] rce(s) Supporting Document(s ) ID Date Data Source [id number] 10/30/2019 06:40:05 AM EDT [facility] Pt. AOX3, periodic confusion. Commode an d urinal at bedside. Seizure and fallprecaution measures in place. Voice s no complaint during shift . Name Value Range Interpretation Code Description Data [facility] rce(s) Supporting Document(s ) ID Date Data Source [id number] 10/30/2019 07:29:12 AM EDT [facility] Name Value Range Interpretation Description Data Sup porting Code Source(s) Document(s ) Sodium 139 136-145 [facility] - Good [Moles/volume] mmol/L [facility] in Serum or Hospital Plasma Potassium 3.6 3.5-5.1 [facility] - Good [Moles/volume] mmol/L [facility] in Serum or Hospital Plasma Chloride 110 98-107 Above high normal [facility] - Good [Moles/volume] mmol/L [facility] in Serum or Hospital Plasma Carbon 24 21-32 [facility] - Good dioxide, total mmol/L [facility] [Moles/volume] Hospital in Serum or Plasma Anion gap in 9 mmol/L 10-20 Below low normal [facility] - Go od Serum or [facility] Plasma Hospital Glucose 96 mg/dL 74-106 [facility] - Good [Mass/volume] [facility] in Serum or Hospital Plasma Urea nitrogen 10 mg/dL 7-18 [facility] - Good [Mass/volume] [facility] in Serum or Hospital Plasma Creatinine 0.81 0.70-1.3 [facility] - Good [Mass/volume] mg/dL 0 [facility] in Serum or Hospital Plasma Glomerular >60 [facility] - Good filtration [facility] rate/1.73 sq M Hospital predicted among blacks [Volume Rate/Area] in Serum or Plasma by Creatinine-bas ed formula (MDRD) Glomerular >60 [facility] - Good filtration [facility] rate/1.73 sq M Hospital predicted among non-blacks [Volume Rate/Area] in Serum or Plasma by Creatinine-bas ed formula (MDRD) Calcium 8.2 8.5-10.1 Below low normal [facility] - Good [Mass/volume] mg/dL [facility] in Serum or Hospital Plasma ID Date Data Source [id number] 10/30/2019 07:05:07 AM EDT [facility] - Good [facility] Name Value Range Interpretation Description Data Sup porting Code Source(s) Document(s ) Leukocytes 4.8 K/uL 4.8-10.6 [facility] - [#/volume] in Good Blood by [facility] Automated count [facility] Erythrocytes 4.59 4.70-6.0 Below low normal [facility] - [#/volume] in M/uL 0 Good Blood by [facility] Automated count [facility] Hemoglobin 14.0 14.0-18. [facility] - [Mass/volume] in g/dL [address] Good [address] [facility] Hematocrit 42.7 % 42.0-52. [facility] - [Volume 0 Good Fraction] of [facility] Blood by Hospital Automated count Erythrocyte mean 93.0 FL 81.0-94. [facility] - corpuscular 0 Good volume [Entitic [facility] volume] by Hospital Automated count Erythrocyte mean 30.5 PG 27.0-35. [facility] - corpuscular 0 Good hemoglobin [facility] [Entitic mass] Hospital by Automated count Erythrocyte mean 32.8 30.7-37. [facility] - corpuscular g/dL 3 Good hemoglobin [facility] Hospital [Mass/volume] by Automated count Erythrocyte 13.3 % 11.5-14. [facility] - distribution 0 Good width [Ratio] by [facility] Automated count Hospital Platelets 159 K/uL 130-400 [facility] - [#/volume] in Good Blood by [facility] Automated count Hospital Platelet mean 8.6 FL 9.2-11.8 Below low normal [facility] - volume [Entitic Good volume] in Blood [facility] by Automated Hospital count Nucleated 0.0 PER 0 [facility] - erythrocytes/100 100 WBC Good leukocytes [facility] [Ratio] in Blood [facility] Nucleated 0.00 0.0-0.01 [facility] - erythrocytes K/uL Good [#/volume] in [facility] Segmented 54 % 48.0-72. [facility] - neutrophils/100 0 Good leukocytes in [facility] Lymphocytes/100 32 % 18.0-40. [facility] - leukocytes in 0 [facility] Blood [facility] Monocytes/100 9 % 2.0-12.0 [facility] - leukocytes in [facility] Eosinophils/100 5 % 0.0-7.0 [facility] - leukocytes in [facility] Basophils/100 1 % 0.0-3.0 [facility] - leukocytes in [facility] Immature 0 % 0-0.5 [facility] - granulocytes/100 Good leukocytes in [facility] Automated count Segmented 2.6 K/UL 2.3-7.6 [facility] - neutrophils Good [#/volume] in [facility] Lymphocytes 1.5 K/UL 0.9-4.2 [facility] - [#/volume] in [facility] Monocytes 0.4 K/UL 0.1-1.7 [facility] - [#/volume] in [facility] Eosinophils 0.2 K/UL 0.0-1.0 [facility] - [#/volume] in [facility] Basophils 0.0 K/UL 0.0-0.4 [facility] - [#/volume] in [facility] Immature 0.0 K/UL 0.0-0.17 [facility] - granulocytes Good [#/volume] in [facility] Blood by [facility] Automated count Differential [facility] - cell count [facility] method - Blood [facility] ID Date Data Source [id number] 10/29/2019 07:40:21 PM EDT [facility] Verbal shift change report given to Wai rogers RN(oncoming nurse) by Elizabeth Meehan RN (offgoing nurse). Report included the fo llowing information SBAR, Kardex, EDSummary, Intake/Output, MAR and Recent Results. Name Value Range Interpretation Code Description Data Melani rce(s) Supporting Document(s ) ID Date Data Source [id number] 10/30/2019 06:54:22 PM EDT [facility] Name Value Range Interpretation Description Data Sup porting Code Source(s) Document(s ) Color of Urine YEL [facility] - [facility] Appearance of CLEAR [facility] - Urine [facility] Specific gravity 1.015 1.003-1. [facility] - of Urine by 030 Good Refractometry [facility] pH of Urine by 6.0 4.6-8.0 [facility] - Test strip [facility] Protein NEG [facility] - [Mass/volume] in Good Urine by Test [facility] Glucose NEG [facility] - [Mass/volume] in Good Urine by [facility] Automated test [facility] strip Ketones NEG [facility] - [Presence] in Good Urine by [facility] Automated test [facility] strip Bilirubin.total NEG [facility] - [Presence] in Good Urine [facility] Hemoglobin NEG [facility] - [Presence] in Good Urine by [facility] Urobilinogen 1.0 0.2-1.0 [facility] - [Presence] in EU/dL Good Urine by [facility] Automated test Hospital strip Nitrite NEG [facility] - [Presence] in Good Urine by [facility] Automated test [facility] strip Leukocyte NEG [facility] - esterase Good [Presence] in [facility] Urine by Hospital Automated test strip ID Date Data Source [id number] 10/29/2019 06:14:12 PM EDT [facility] Spoke with to clarify meds..correct doses obtained Name Value Range Interpretation Code Description Data Melani rce(s) Supporting Document(s ) ID Date Data Source [id number] 10/29/2019 06:01:22 PM EDT [facility] Pt unsure of dose of Vraylar will call w berta Name Value Range Interpretation Code Description Data Melani rce(s) Supporting Document(s ) ID Date Data Source [id number] 10/29/2019 03:56:40 PM EDT [facility] [id number] [facility] [address] [place] [address] [place] [address] [phone]/12/12 Maxwell Bray (Male) [id number] ES I 2 ED Dispo:ADMIT Chief Complaint: Dysarthria, Lethargy Diagnosis: Altered mental status, unspecified altered mental statu s type [] Bipolar disorder with severe depression (HCC) [] Current Providers: Att ending: Cole Ernandez; Cristi Canas Consulting Provider: Cristi Canas Primary Nurse: Kristy Moss Tech: HERMANN GonzalesN: [phone] [employer] [phone] - Bs h[employer] MrnMRN: [id number] [employer] [phone] - [facility]shsi [employer] Age Sex 1970 AGE 49 SEX Male Primary Care Provider: Ritika Canas MD Hclezvrtq: (No Kn own Allergies)Date Reviewed: 10/29/2019Reviewed by: Ritika Canas MD - Review CompleteED Provider Notes: [facility]: [id number]: Cristobal Ernandez MDService: -Author Type: PhysicianFiled: 10/29/19 [...] of morbidity or mortality cardiac cath at [facility] approx 6-8 months ago [...] week Gets together: Once a week Attends voodoo service: More than 4 times per year [...] QTC Calculation (Bezet) 446 ms Calculated P [place] 53 degrees Calc ulated R [place] 68 degrees Calculated T [place] 0 degrees Diagnosis Sinus tachycardiaProlonged NC intervalNo nspecific intraventricular conduction delayCBC WITH AUTOMATED [...] Time: 10/29/19 10:45 AMResult Value Ref Range [place] level <0.20 (L) 0.6 - 1.2 MMOL/L [...] contrast. Sagittal and coronalreconstruction was performed. Utilizing gyroscopic instrument tester algorithm theexaminationwas performed to optimize imaging quality [...] status, unspecified altered menta l status type [id number] condition at time of disposition: StableI have [...] d thediagnostic studies, unless otherwise noted.+ED Orders [id number] CBC WITH AUTOMATED DIFF [# [id number]] Priority: STAT Class: ER Collect Standing Order Information Remaining Occurrences:0 /1 Interval:ONE TIME Last released:10/29/2019 Released orders: SunOctober 29, 2019 11:02 AM by: CRISTOBAL ERNANDEZ [id number] METABOLIC PANEL, COMPREHENSIVE [#[id number]] Bridgette ority: STAT Class: ER Collect Standing Order Information Remaining Occurrences:0/1 Inter haile:ONE TIME Last released:10/29/2019 Released orders: SunOctober 29, 2019 11:02 AM by: CRISTOBAL WADE [id number] PROTHROMBIN TIME + INR [#[id number]] Priority: STAT Class: E R Collect Standing Order Information Remaining Occurrences:0/1 Interval:ONE TI ME Last released:10/29/2019 Released orders: SunOctober 29, 2019 11:02 AM by: BRIE ERNANDEZ EN [id number] PTT [#[id number]] Priority: STAT Class: ER Collect Speci men Source: Blood Standing Order Information Remaining Occurrences:0/1 Interval:ONE TI ME Last released:10/29/2019 Released orders: SunOctober 29, 2019 11:02 AM by: BRIE ERNANDEZ [id number] URINALYSIS W/ RFLX MICROSCOPIC [#[id number]] Priority: STAT Class: ER Collect Sta nding Order Information Remaining Occurrences:0/1 Interval:ONE TIME Last released:0 10/29/2019 Released orders: SunOctober 29, 2019 11:02 AM by: CRISTOBAL ERNANDEZ [id number] LITHIUM [#[id number]] Priority: STAT Class: ER Collect Standing Order Information Remaining Occurrences:0/1 Interval:ONE TIME Last released:10/29/2019 Released orders : SunOctober 29, 2019 11:02 AM by: CRISTOBAL ERNANDEZ [id number] CBC WITH AUTOMATED DIFF [# [id number]] Priority: STAT Class: ER Collect Specimen Source: Whole Blood Specimen Collected: 020 10:45 AM Resulting Agency: [facility] Test ID: CBCXA Released on: 0 11:02 AM [id number] METABOLIC PANEL, COMPREHENSIVE [#[id number]] Priority: STAT Class: E R Collect Specimen Source: Plasma Specimen Collected: 10/29/2019 10:45 AM Resulting Agency: [facility] Test ID: MPL Released on: 10/29/2019 11:02 AM [id number] PROTHROMBIN TIME + IN R [#[id number]] Priority: STAT Class: ER Collect Specimen Source: Plasma Specimen Collec yhun: 10/29/2019 10:45 AM Resulting Agency: [facility] Test ID: APTHR Released o n: 10/29/2019 11:02 AM [id number] PTT [#[id number]] Priority: STAT Class: ER Collect Specimen Source: Plasma Specimen Collected: 10/29/2019 10:45 AM Resulting Agency: [facility] Test ID: APTT Released on: 10/29/2019 11:02 AM [id number] URINALYSIS W/ RFLX MA CROSCOPIC [#[id number]] Priority: STAT Class: ER Collect Resulting Agency: [facility] Test ID: UA Released on: 10/29/2019 11:02 AM [id number] LITHIUM [#[id number]] Priority: STAT Class: ER Collect Specimen Source: Serum Specimen Collected: 10/28 10:45 AM Resulting Agency: [facility] Test ID: LI Released on: 10/29/2019 11:02 AM [id number] CBC WITH AUTOMATED DIFF [#[id number]] Priority: STAT Class: E R Collect Standing Order Information Remaining Occurrences:06/25 Interval:TOMORR OW AM [id number] METABOLIC PANEL, BASIC [#[id number]] Priority: STAT Class: ER Collect St anding Order Information Remaining Occurrences:06/25 Interval:TOMORROW AM [id number] CT HEAD W O CONT [#[id number]] Priority: Routine Class: Hospital Performed Standing Or mariano Information Remaining Occurrences:0/1 Interval:ONE TIME Last released:10/29/2019 Released orders: SunOctober 29, 2019 11:02 AM by: CRISTOBAL ERNANDEZ Reason for Exam -> ams IMG 2590 XR CHEST PORT [#[id number]] Priority: STAT Class: Hospital Performe d Standing Order Information Remaining Occurrences:0/1 Interval:ONE TIME Last release d:10/29/2019 Released orders: SunOctober 29, 2019 11:02 AM by: CRISTOBAL ERNANDEZ Reason for Exam -> ams [id number] CT HEAD WO CONT [#[id number]] Priority: STAT Class: Hospital Perfo rmed Specimen Collected: 10/29/2019 11:54 AM Resulting Agency: [facility] Test ID: [id number] [place] son for Exam -> ams Released on: 10/29/2019 11:02 AM [id number] XR CHEST PORT [#[id number]] Priority: STAT Class: Hospital Performed Specimen Collected: 10/29/2019 12:16 PM Resultin g Agency: [facility] Test ID: [id number] Reason for Exam -> ams Released on: 10/29/2019 11:02 AM [id number] EKG, 12 LEAD, INITIAL [#[id number]] Priority: STAT Class: Hospital Performe d Standing Order Information Remaining Occurrences:0/1 Interval:ONE TIME Last release d:10/29/2019 Released orders: SunOctober 29, 2019 11:02 AM by: CRISTOBAL ERNANDEZ Reason for Exam : -> chest pain [id number] EKG, 12 LEAD, INITIAL [#[id number]] Priority: STAT Class: H ospital Performed Resulting Agency: [facility] Test ID: [id number] Reason for Exam: -> chest pain Releas ed on: 10/29/2019 11:02 AM [id number] POC GLUCOSE [#[id number]] Priority: STAT Cl ass: Hospital Performed Standing Order Information Remaining Occurrences:0/1 Interval:ONE TI ME Last released:10/29/2019 Released orders: SunOctober 29, 2019 11:02 AM by: BRIE ERNANDEZ EN [id number] POC GLUCOSE [#[id number]] Priority: STAT Class: Hospital Performe d Released on: 10/29/2019 11:02 AM [id number] VITAL SIGNS PER UNIT ROUTINE [#[id number]] Priorit y: STAT Class: Hospital Performed Standing Order Information Remaining Occurrences:0/1 Inte rval:CONTINUOUS Last released:10/29/2019 Released orders: SunOctober 29, 2019 2:54 PM by: RITIKA CANAS Comment:More frequently if Indicated. [id number] BEDREST, COMPLETE [#[id number]] Priority: STAT Class: Hospital Performed Standing Order Information Remainin g Occurrences:0/1 Interval:CONTINUOUS Last released:10/29/2019 Released orders : SunOctober 29, 2019 2:54 PM by: RITIKA CANAS [id number] NOTIFY PROVIDER: VITAL SIGNS CHANGES [# [id number]] Priority: STAT Class: Hospital Performed Standing Order [...] Less than 120 ml in 4 hours [id number] APPLY/MAINTAIN SEQUENTIAL COMPRESSIO* [#[id number]] Priority: ST AT Class: Hospital Performed Standing Order Information Remaining Occurrences:0/1 Inter haile:CONTINUOUS Last released:10/29/2019 Released orders: SunOctober 29, 2019 2:54 PM by: RITIKA CANAS [id number] VITAL SIGNS PER UNIT ROUTINE [#[id number]] Priority: STAT Class: H ospital Performed Comment:More frequently if Indicated. Released on: 10/29/2019 2:54 PM [id number] 4 BEDREST, COMPLETE [#[id number]] Priority: STAT Class: Hospital Performed Relea sed on: 10/29/2019 2:54 PM [id number] NOTIFY PROVIDER: VITAL SIGNS CHANGES [#[id number]] Priority: STAT Class: Hospital Performed Temp -> [...] carmen rs Released on: 10/29/2019 2:54 PM [id number] APPLY/MAINTAIN SEQUENTIAL COMPRESSIO* [#[id number]] P riority: STAT Class: Hospital Performed Released on: 10/29/2019 2:54 PM SODIUM CHLORIDE 0.9 % IJ SYRG [#[id number]] Priority: STAT Class: Normal SODIUM CHLORIDE 0.9 % IJ SYRG [#[id number]] Priority: STAT Class: Normal ACETAMINOPHEN 325 MG TABLET [# [id number]] Priority: STAT Class: Normal ENOXAPARIN 40 MG/0.4 ML SUB-Q SYRINGE [#[id number]] Priority: STAT Class: Normal SODIUM CHLORIDE 0.9 % IV [#[id number]] Priority: STAT Class: Normal [id number] GLUCOSE, POC [#[id number]] Priority: Routine Class : ER Collect Resulting Agency: [facility] Test ID: BGG Standing Order Informati on Remaining Occurrences:0/1 Released orders: SunOctober 29, 2019 11:26 AM by: Automatic B [facility] Process [id number] GLUCOSE, POC [#[id number]] Priority: Routine Class : ER Collect Specimen Source: Whole Blood Specimen Collected: 10/29/2019 11:26 AM Resulting Agency: [facility] Test ID: BGG Released on: 10/29/2019 11:26 AM [id number] IP CONSULT TO PRIMARY CARE PROVIDER [#[id number]] Priority: STAT Class: Hospital Performed Standing Order Inf ormation Remaining Occurrences:0/1 Interval:ONE TIME Last released:10/29/2019 Relea sed orders: SunOctober 29, 2019 12:59 PM by: CRISTOBAL ERNANDEZ Reason for Consult: -> admit Did you call or speak to the consulting provider? -> No Consult To -> dr canas [id number] IP [facility] [#[id number]] Priority: STAT Class: Hospital Performed Reason for Consult: -> ad rei Did you call or speak to the consulting provider? -> No Consult To -> dr canas Released on: 12:59 PM CON53 IP CONSULT TO PSYCHIATRY [#[id number]] Priority: STAT Class: H ospital Performed Standing [...] -> TODAY CON53 IP CONSULT TO PSYCHIATRY [#[id number]] Priority: STAT Class: Hospital Performed Reason for Consult: -> 49 yo male with severe bipolar diseas e, admitted with slurred speech, severe weakness Did you call or speak to t he consulting provider? -> No Consult To -> Dr Aguirre Schedule When? -> TODAY Released on: 10/29/2019 2:54 PM [id number] INITIAL PHYSICIAN ORDER: INPATIENT [#[id number]] Priority: Routine Class : ADT Pend Transfer [...] CANAS Estimated Length of Stay -> 3-4 [facility] Discharge Plan: -> Home with Office Follow-up [id number] INITIAL PHYSICIAN ORDER: INPATIENT [# [id number]] Priority: Routine Class: ADT Pend Transfer Status: [...] Foll ow-up Released on: 10/29/2019 2:43 PM [id number] INITIAL PHYSICIAN ORDER: INPATIENT [#[id number]] Priority: Routine Class: ADT Pend Transfer [...] 3-4 Midnights Discharge Plan: -> Other (Specify) [id number] INITIAL PHYSIC JOSE ORDER: INPATIENT [#[id number]] Priority: Routine Class: ADT Pend Transfer Status: [...] 2:54 PM IVT3 INSERT PERIPHERAL IV [# [id number]] Priority: STAT Class: Hospital Performed Standing Order Information Remaining Occurre nces:0/1 Interval:ONE TIME Last released:10/29/2019 Released orders: SunOctober 28, 020 2:54 PM by: RITIKA CANAS IVT3 INSERT PERIPHERAL IV [#[id number]] Priority: ST AT Class: Hospital Performed Released on: 10/29/2019 2:54 PM CON75 IP CONSULT TO PHYSICAL THERAPY [#[id number]] Priority: STAT Class: Hospital Performed Standing Order Information Remainin g Occurrences:14 Interval:DAILY Last released:10/29/2019 Released orders : SunOctober 29, 2019 2:54 PM by: RITIKA CANAS CON75 IP CONSULT TO PHYSICAL THERAPY [#[id number]] Priority: STAT Class: Hospital Performed Released on: 10/29/2019 2:54 PM COD2 FULL CODE [#[id number]] Priority: STAT Class: Hospital Performed Standing Order Inf ormation Remaining Occurrences:0/1 Interval:CONTINUOUS Last released:10/29/2019 Rel eased orders: SunOctober 29, 2019 2:54 PM by: RITIKA CANAS COD2 FULL CODE [#[id number]] Priority: STAT Class: Hospital Performed Released on: 10/29/2019 2:54 PM [id number] 4 DIET FULL LIQUID [#[id number]] Priority: STAT Class: Hospital Performed Stand ing Order Information Remaining Occurrences:0/1 Interval:DIET EFFECTIVE NOW Last released:10/29/2019 Released orders: SunOctober 29, 2019 2:54 PM by: RITIKA CANAS Comment:A dvance as tolerated to regular diet [id number] DIET FULL LIQUID [#[id number]] Priority: STAT Class: Hospital Performed Comment:Advance as tolerated to regular diet Released on: 10/29/2019 2:54 Maxwell Corona MR#: [id number] * Rm: 416-02Ht: 5' 7" Wt: 3 00 lb Code: Full Code Iso:Diagnosis:Bipolar disorder with severe depression (HCC) [F31.4]Allergies : No Known Allergies -------- Current as of: 10/29/19 1556 ---aspirin (ASPIRIN) tablet 325 mg #[id number] Admin Amount: 1 Tab (1 x 325 mg Tab) Ordered Dose: 325 mg Route: Oral Freq: ONCE Start Date: 12/24/13 No administration times (back 96 hours, ahead 96 hours). ------diphenhydrAMINE (BENADRYL) capsule 50 mg #[id number] Admin Amount: 1 Cap (1 x 50 mg Cap) Ordered Dose: 50 mg Ro swinomish: Oral Freq: NOW Start Date: 12/24/13 No administration times (back 96 hours, ahe ad 96 hours). ------diazepam (VALIUM) tablet 5 mg #[id number] Admin Amount: 1 Tab (1 x 5 mg Tab) Ordered Dose: 5 mg Route: Ora l Freq: ONCE Start Date: 12/24/13 No administration times (back 96 hours, e ad 96 hours). ------lidocaine (XYLOCAINE) 10 mg/mL (1 %) injection 1-30 mL #[id number] Admin Amount: 1-30 mL Ordered Dose: 1-30 mL Route: IntraDERMal Freq: ONC E Start Date: 12/24/13 No administration times (back 96 hours, ahead 96 hours). ------heparin (PF) 2 units/ml in NS infusion 2,000 Units #[id number] Admin Amount: 1,000 mL = 2,000 Units of 2 Units/mL Ordered Dose: 1,000 mL Route: Irrigation Freq: ONCE Start Date: 12/24/13 No administration times (b ack 96 hours, ahead 96 hours). ------heparinized saline 2 units/mL infusion 1,000 Units #[id number] Admin Amount: 500 mL = 1,000 Units of 2 Units/mL Ordered Dose: 500 mL R oute: IntraarTERial Freq: ONCE Start Date: 12/24/13 No administration times (back 96 hours, ahead 96 hours). ------0.9% sodium chloride infusion #[id number] Ordered Dose: 75 mL/hr Route: IntraVENous Freq: CONTINUOUS Start Date: 12/24/13 Rate: 75 mL/hr Duration: No administration times (back 96 hours, ahead 96 hours). ------ioversol (OPTIRAY) 320 mg iodine/mL contrast injection 1-100 mL #[id number] Admin Amount: 1-100 mL Ordered Dose: 1-100 mL Route: IntraVENous Freq: RAD ONCE Start Date: 12/24/13 No administration times (back 96 hours, ahead 96 hours).Maxwell Bray MR#: [id number] * Rm: [id number]: 5' 7" Wt: 300 lb Code: Full Code Iso:Diagnosis:Bipolar disorder with severe depression ([facility]) [F31.4]Allergies: No Kn own Allergies -------- Current as of: 10/29/19 1556 ---gadobutrol (GADAVIST) contrast solution 1-10 mL #[id number] Admin Amount: 1-10 mL Ordered Dose: 1-10 mL Route: IntraVENo us Freq: RAD ONCE Start Date: 01/13/14 No administration times (back 96 hours, ahe ad 96 hours). ------sodium chloride (NS) flush 5-10 mL #[id number] Admin Amount: 5-10 mL Ordered Dose: 5-10 mL Route: IntraVENous Freq: RA D ONCE Start Date: 01/13/14 No administration times (back 96 hours, ahead 96 hours). ------sodium chloride (NS) 0.9 % flush #[id number] Ordered Dose: Route: Freq: Start D ate: 01/13/14 No administration times (back 96 hours, ahead 96 hours). ------morphine injection 2 mg #[id number] Admin Amount: 1 mL = 2 mg of 2 mg/mL Ordered Dose: 2 mg Route: Int raVENous Freq: NOW Start Date: 03/13/15 No administration times (back 96 hours, ahe ad 96 hours). ------influenza vaccine (4 yr+)(PF) (FLUCELVAX QUAD) inj ection 0.5*#[id number] Admin Amount: 0.5 mL Ordered Dose: 0.5 mL Route: IntraMUSCular Freq : PRIOR TO DISCHARGE Start Date: 03/30/16 No administration times (back 96 hours, ahead 96 hours). ------oxyCODONE-acetaminophe n (PERCOCET) 5-325 mg per tablet 1 Tab #[id number] Admin Amount: 1 Tab Ordered Dose: 1 Tab Route: Oral Freq: NOW Start Date: 09/07/17 No administration times (back 96 hours, ahead 96 hours). ------barium sulfate (READICAT) 2.1 % (w/v), 2.0 % (w /w) oral suspension 9*#[id number] Admin Amount: 900 mL Ordered Dose: 900 mL Route: Ora l Freq: RAD ONCE Start Date: 10/15/17 No administration times (back 96 hours, e ad 96 hours). ------iopamidol (ISOVUE 300) 61 % contrast injection 100 mL #[id number] Admin Amount: 100 mL Ordered Dose: 100 mL Route: IntraVENous Freq: RAD O NCE Start Date: 10/15/17 No administration times (back 96 hours, ahead 96 hours).Maxwell Bray MR#: [id number] * Rm: [phone]: 5' 7" Wt: 300 lb Cod e: Full Code Iso:Diagnosis:Bipolar disorder with severe depression (HCC) [F31.4]Allergies: No Kn own Allergies -------- Current as of: 10/29/19 1556 ---risperiDONE (RisperDAL m-tabs) disintegrating tablet 1 mg #[id number] Admin Amount: 1 Tab (1 x 1 mg Tab) Ordered Dose: 1 mg Ro swinomish: Oral Freq: ONCE Start Date: 12/24/17 No administration times (back 96 hours, e ad 96 hours). ------ALPRAZolam (XANAX) tablet 2 mg #[id number] Admin Amount: 4 Tab (4 x 0.5 mg Tab) Ordered Dose: 2 mg Route: Ora l Freq: NOW Start Date: 12/24/17 No administration times (back 96 hours, e ad 96 hours). ------lamoTRIgine (LaMICtal) tablet 100 mg #[id number] Admin Amount: 1 Tab (1 x 100 mg Tab) Ordered Dose: 100 mg Route: Ora l Freq: ONCE Start Date: 12/24/17 No administration times (back 96 hours, e ad 96 hours). ------OLANZapine (ZyPREXA zydis) disintegrating tablet 5 mg #[id number] Admin Amount: 1 Tab (1 x 5 mg Tab) Ordered Dose: 5 mg Route: Ora l Freq: ONCE Start Date: 12/25/17 No administration times (back 96 hours, e ad 96 hours). ------LORazepam (ATIVAN) tablet 2 mg #[id number] Admin Amount: 4 Tab (4 x 0.5 mg Tab) Ordered Dose: 2 mg Route: Ora l Freq: NOW Start Date: 12/25/17 No administration times (back 96 hours, ahe ad 96 hours). ------LORazepam (ATIVAN) injection 1 mg #[id number] Admin Amount: 0.5 mL = 1 mg of 2 mg/mL Ordered Dose: 1 mg Ro swinomish: IntraVENous Freq: NOW Start Date: 12/25/17 No administration times (back 96 hours, ahead 96 hours). ------barium sulfate (EZ PAQUE) 96 % (w/w) contrast suspension 17 6 g #[id number] Admin Amount: 176 g Ordered Dose: 176 g Route: Oral Freq: RAD ONCE Start Date: 08/02/18 No administration times (back 96 hours, ahead 96 hours). ------barium sulfate (EZ PAQUE) 96 % (w/w) contrast suspension 17 6 g #[id number] Admin Amount: 176 g Ordered Dose: 176 g Route: Oral Freq: RAD ONCE Start Date: 08/02/18 No administration times (back 96 hours, ahead 96 hours).Maxwell Bray MR#: [id number] * Rm: [id number]: 5' 7" Wt: 300 lb Code: Full Co de Iso:Diagnosis:Bipolar disorder with severe depression ([facility]) [F31.4]Allergies: No Known Allergies -------- Current as of: 10/29/19 1556 ---aspirin chewable tablet 162 mg #[id number] Admin Amount: 2 Tab (2 x 81 mg Tab) Ordered Dose: 162 mg Route: Ora l Freq: NOW Start Date: 08/10/19 No administration times (back 96 hours, ahe ad 96 hours). ------0.9% sodium chloride infusion 1,000 mL #[id number] Admin Amount: 1,000 mL Ordered Dose: 1,000 mL Route: IntraVENous Freq: O NCE Start Date: 08/16/19 Rate: 1,000 mL/hr Duration: No administratio n times (back 96 hours, ahead 96 hours). ------methylPREDNISolone (PF) (Solu-MEDROL) injection 125 mg #[id number] Admin Amount: 2 mL = 125 mg of 125 mg/2 mL Ordered Dose: 125 mg Ro swinomish: IntraVENous Freq: NOW Start Date: 08/16/19 No administration times (back 9 6 hours, ahead 96 hours). ------aspirin chewable tablet 162 mg #[id number] Admin Amount: 2 Tab (2 x 81 mg Tab) Ordered Dose: 162 mg Route: Ora l Freq: NOW Start Date: 08/16/19 No administration times (back 96 hours, e ad 96 hours). ------sodium chloride (NS) flush 5-40 mL #[id number] Admin Amount: 5-40 mL Ordered Dose: 5-40 mL Route: IntraVENous Freq: RONA HERNANDEZY 8 HOURS Start Date: 10/29/19 Administration times (back 96 hours, ahead 96 hours): : 1400 2200 10/30/19: 06 1400 219910/31/19: 599 1400 219911/01/19: 599 1400 219911/02/19: 599 1400 ---sodium chloride (NS) flush 5-40 mL #[id number] Admin Amount: 5-40 mL Ordered Dose: 5-40 mL Route: IntraVENous Freq: NEEDED Start Date: 10/29/19 No administration times (back 96 hours, ahead 96 hours). ------acetaminophen (TYLENOL) tablet 650 mg #[id number] Admin Amount: 2 Tab (2 x 325 mg Tab) Ordered Dose: 650 mg Ro swinomish: Oral Freq: EVERY 4 HOURS NEEDED Start Date: 10/29/19 No administration times (back 96 hours, ahe ad 96 hours).Maxwell Bray MR#: [id number] * Rm: [id number]: 5' 7" Wt: 3 00 lb Code: Full Code Iso:Diagnosis:Bipolar disorder with severe depression (HCC) [F31.4]Allergies : No Known Allergies -------- Current as of: 10/29/19 1556 ---enoxaparin (LOVENOX) injection 40 mg #[id number] Admin Amount: 0.4 mL = 40 mg of 40 mg/0.4 mL Ordered Dose: 40 mg Route: SubCUTAneous Freq: EVERY 24 HOURS Start Date: 10/29/19 Administration times (back 96 hours, ahead 96 hours): 10/29/19: 14510/30/19: 145410/31/19: 145411/01/19: 145411/02/19 : 1454 ---0.9% sodium chloride infusion #[id number] Ordered Dose: 100 mL/hr Route: IntraVENous Freq: [...] Supporting Document(s ) ID Date Data Source [id number] 10/29/2019 03:54:13 PM EDT [facility] History & PhysicalBrian Anam Bray is [...] of morbidity or mortality cardiac cath at [facility] approx 6-8 months ag [...] week Gets together: Once a week Attends voodoo service: More than 4 times per year [...] trast. Sagittal and coronal reconstruction was performed.Utilizing gyroscopic instrument tester alg orithm the examination was performed to [...] QTC Calculation (Bezet) 446 ms Calculated P [place] 53 degrees Calculat ed R [place] 68 degrees Calculated T [place] 0 degrees Diagnosis Sinus tachycardiaProl onged NC intervalNonspecific intraventricular conduction delayCBC WITH AUTOMATED DIFF [...] lydia: 10/29/19 10:45 AMResult Value Ref Range [place] level <0.20 (L) 0.6 - 1.2 MMOL/L GLUCOSE, POC Collection Time: 10/29/19 11:26 AMResult Value Ref Range Glucose, bedsid e 102 65 - 110 MG/DLAll lab results for the last 24 hours reviewed.Assessment/PlanAc tive Problems: Bipolar disorder with severe depression (HCC) (10/29/2019) possible [place]entina dvertentoverdoseGeorge MD Corey Name Value Range Interpretation Code Description Data Melani rce(s) Supporting Document(s ) ID Date Data Source [id number] 10/29/2019 03:42:10 PM EDT [facility] TRANSFER - OUT REPORT:Verbal report [...] Supporting Document(s ) ID Date Data Source [id number] 10/29/2019 02:28:59 PM EDT [facility] The history is provided by [...] morbidity or mortal ity cardiac cath at [facility] approx 6-8 months ago [...] week Gets together: Once a week Attends voodoo service: More than 4 times per year [...] QTC Calculation (Bezet) 446 ms Calculated P [place] 53 degr ees Calculated R [place] 68 degrees Calculated T [place] 0 degrees Diagnosis Sinus tachycar diaProlonged NC intervalNonspecific intraventricular conduction delayCBC WIT H AUTOMATED [...] lydia: 10/29/19 10:45 AMResult Value Ref Range [place] level <0.20 (L) 0.6 - 1.2 MMOL/L [...] Sagittal and coronalreconstru ction was performed. Utilizing gyroscopic instrument tester algorithm the examinationwas performed t o optimize [...] Supporting Document(s ) ID Date Data Source [id number] 10/29/2019 12:17:28 PM EDT [facility] XR CHEST PORTCLINICAL INDICATION PROVIDE [...] Supporting Document(s ) ID Date Data Source [id number] 10/29/2019 11:55:57 AM EDT [facility] CT HEAD WO CONTClinical data: amsPriors: 03/13/2015.Technique: Multiple axial images were obtained from the skullbase to the vertexwithout administration of intravenous contrast. Sagittal and coronalreconstru ction was performed. Utilizing gyroscopic instrument tester algorithm the examinationwas performed t o optimize [...] Supporting Document(s ) ID Date Data Source [id number] 10/29/2019 11:48:34 AM EDT [facility] Name Value Range Interpretation Description Data Sup porting Code Source(s) Document(s ) Glucose 102 MG/DL 65-110 [facility] - [facility] [Mass/volume] [facility] in Blood by Hospital Automated test strip ID Date Data Source [id number] 10/29/2019 10:49:56 AM EDT [facility] Patient lethargic, BIBA from home for le thargy and slurred speech. Name Value Range Interpretation Code Description Data Melani rce(s) Supporting Document(s ) ID Date Data Source [id number] 10/29/2019 11:29:33 AM EDT [facility] Name Value Range Interpretation Code Description Data Supporting Source(s) Document(s ) [place] 0.6-1.2 Below low normal [facility] [Moles/volum [facility] e] in Serum Hospital or Plasma ID Date Data Source [id number] 10/29/2019 11:28:52 AM EDT [facility] Name Value Range Interpretation Description Data Sup porting Code Source(s) Document(s ) Sodium 136 136-145 [facility] [Moles/volume] mmol/L [facility] in Serum or Hospital Plasma Potassium 4.4 3.5-5.1 [facility] - [facility] [Moles/volume] mmol/L [facility] in Serum or Hospital Plasma Chloride 106 98-107 [facility] [Moles/volume] mmol/L [facility] in Serum or Hospital Plasma Carbon 22 21-32 [facility] - Good dioxide, total mmol/L [facility] [Moles/volume] Hospital in Serum or Plasma Anion gap in 12 10-20 [facility] Serum or mmol/L [facility] Plasma Hospital Glucose 108 74-106 Above high normal [facility] [Mass/volume] mg/dL [facility] in Serum or Hospital Plasma Urea nitrogen 16 mg/dL 7-18 [facility] [Mass/volume] [facility] in Serum or Hospital Plasma Creatinine 1.05 0.70-1.3 [facility] - [facility] [Mass/volume] mg/dL 0 [facility] in Serum or Hospital Plasma Glomerular >60 [facility] - Good filtration [facility] rate/1.73 sq M Hospital predicted among blacks [Volume Rate/Area] in Serum or Plasma by Creatinine-bas ed formula (MDRD) Glomerular >60 [facility] - Good filtration [facility] rate/1.73 sq M Hospital predicted among non-blacks [Volume Rate/Area] in Serum or Plasma by Creatinine-bas ed formula (MDRD) (NOTE)Estimated GFR is calculated using the Modification of Diet in RenalDisease (MDRD) Study equation, reported for both Americans(GFRAA) and non- Americans (GFRNA), and normalized to 1.7 3w8vric surface area. The physician must decide which [...] 8.5-10.1 [facility] - Good Serum or Plasma [facility] ital Bilirubin.total 0.7 mg/dL 0.2-1.0 [facility] - Good [Mass/volume] in Serum or [facility] Plasma Alanine aminotransferase 30 U/L 13-61 [facility] - Good [Enzymatic activity/volume] [facility] in Serum or Plasma Aspartate aminotransferase 27 U/L 15-37 [facility] - Good [Enzymatic activity/volume] [facility] in Serum or Plasma by With P-5'-P Alkaline phosphatase 139 U/L 45-117 Above high [facility] - Good [Enzymatic activity/volume] normal [facility] in Serum or Plasma Protein [Mass/volume] in 7.6 g/dL 6.4-8.2 [facility] - Good Serum or Plasma [facility] ital Albumin [Mass/volume] in 3.9 g/dL 3.5-4.7 [facility] - Good Serum or Plasma by [facility] ospital Bromocresol purple (BCP) dye binding method Globulin [Mass/volume] in 3.7 g/dL 1.7-4.7 [facility] - Good Serum by calculation [facility] Albumin/Globulin [Mass 1.0 0.7-2.8 [facility] - Good Ratio] in Serum or Plasma [facility] ID Date Data Source [id number] 10/29/2019 11:20:29 AM EDT [facility] Name Value Range Interpretation Description Data Sup porting Code Source(s) Document(s ) aPTT in 22.2 SEC 21.0-28. [facility] - Good Platelet poor 0 [facility] plasma by Hospital Coagulation assay Therapeutic Range = 42.0-60.0 secs ID Date Data Source [id number] 10/29/2019 11:20:29 AM EDT [facility] - [facility] Name Value Range Interpretation Description Data Sup porting Code Source(s) Document(s ) Prothrombin 10.3 sec 9.4-11.1 [facility] - Good time (PT) [facility] INR in 1.0 0.8-1.2 [facility] - Good Platelet poor [facility] plasma by Hospital Coagulation assay ID Date Data Source [id number] 10/29/2019 11:11:49 AM EDT [facility] - [facility] Name Value Range Interpretation Description Data Sup porting Code Source(s) Document(s ) Leukocytes 8.1 K/uL 4.8-10.6 [facility] - [#/volume] in Good Blood by [facility] count [facility] Erythrocytes 5.52 4.70-6.0 [facility] - [#/volume] in M/uL 0 Good Blood by [facility] Hemoglobin 16.7 14.0-18. [facility] - [Mass/volume] in g/dL 0 [facility] Blood [facility] Hematocrit 51.8 % 42.0-52. [facility] - [Volume 0 Good Fraction] of [facility] Blood by Hospital Automated count Erythrocyte mean 93.8 FL 81.0-94. [facility] - corpuscular 0 Good volume [Entitic [facility] volume] by Hospital Automated count Erythrocyte mean 30.3 PG 27.0-35. [facility] - corpuscular 0 Good hemoglobin [facility] [Entitic mass] [facility] by Automated count Erythrocyte mean 32.2 30.7-37. [facility] - corpuscular g/dL 3 Good hemoglobin [facility] [Mass/volume] by Automated count Erythrocyte 13.2 % 11.5-14. [facility] - distribution 0 Good width [Ratio] by [facility] Platelets 193 K/uL 130-400 [facility] - [#/volume] in Good Blood by [facility] Platelet mean 8.6 FL 9.2-11.8 Below low normal [facility] - volume [Entitic Good volume] in Blood [facility] Automated Hospital count Nucleated 0.0 PER 0 [facility] - erythrocytes/100 100 WBC Good leukocytes [facility] [Ratio] in Blood Hospital Nucleated 0.00 0.0-0.01 [facility] - erythrocytes K/uL Good [#/volume] in [facility] Segmented 79 % 48.0-72. Above high normal [facility] - neutrophils/100 0 Good leukocytes in [facility] Lymphocytes/100 10 % 18.0-40. Below low normal [facility] - leukocytes in [address] Good [address] [facility] Monocytes/100 8 % 2.0-12.0 [facility] - leukocytes in Good Blood [facility] Eosinophils/100 1 % 0.0-7.0 [facility] - leukocytes in [facility] Basophils/100 0 % 0.0-3.0 [facility] - leukocytes in [facility] Immature 1 % 0-0.5 Above high normal [facility] - granulocytes/100 Good leukocytes in [facility] Automated count Segmented 6.4 K/UL 2.3-7.6 [facility] - neutrophils Good [#/volume] in [facility] Lymphocytes 0.8 K/UL 0.9-4.2 Below low normal [facility] - [#/volume] in [facility] Monocytes 0.7 K/UL 0.1-1.7 [facility] - [#/volume] in [facility] Eosinophils 0.1 K/UL 0.0-1.0 [facility] - [#/volume] in [facility] Basophils 0.0 K/UL 0.0-0.4 [facility] - [#/volume] in [facility] Immature 0.1 K/UL 0.0-0.17 [facility] - granulocytes Good [#/volume] in [facility] Automated count Differential [facility] - cell count [facility] method [facility] ID Date Data Source [id number] 09/15/2019 09:44:01 AM EDT [facility] Clinical Indications/Reason For Exam: pa [...] Supporting Document(s ) ID Date Data Source [id number] 09/15/2019 09:41:40 AM EDT [facility] THORACIC SPINE 4 views.History: Pain.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 Signing date/time: 09/15/2019 9:41 AMSigned by: CURTIS VARMA Name Value Range Interpretation Code Description Data Melani rce(s) Supporting Document(s ) ID Date Data Source [id number] 09/15/2019 09:40:53 AM EDT [facility] Clinical indications with reason for [...] Name Value Range Interpretation Code Description Data [facility] rce(s) Supporting Document(s ) ID Date Data Source [id number] 08/17/2019 08:25:20 AM EST [facility] History: Chest PainTechnique: Portable c [...] Name Value Range Interpretation Code Description Data [facility] rce(s) Supporting Document(s ) ID Date Data Source [id number] 08/16/2019 11:12:22 PM EST [facility] The history is provided by [...] m orbidity or mortality cardiac cath at [facility] approx 6-8 months ago [...] e Gets together: Not on file Attends voodoo service: Not on file 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 [...] Calculation (Bezet) 429 ms Ca lculated P [place] 36 degrees Calculated R [place] 77 degrees Calculated T [place] -24 degrees Diagnosis Sinus tachycardiaBorderline T abnormalities, [...] Time: 08/16/19 9:00 PMResult Value Ref Range [place] level 0.21 (L) 0.6 - 1.2 MMOL/LEKG: sinus tach ycardia, rate 109Radiology:CXR: no acute findings<EMERGENCY DEPARTMENT CASE [facility]>Impression/Differential Diagnosis: Allergic reaction allergic, drug reactio n,ACS, pulmonary embolismED Course: Patient presents short of breath and mildly tach ycardic complainingof new onset rash to face anterior chest and posterior chest.Plan: Labs, chest x-ray, EKG, troponin, d-dimer, prednisone, Pepcid, gpaasxlrubm05:04 PM patient verbalizes relief of symptoms rash has faded. He denies chestpain he denie s shortness of breath.Patient was advised that we cannot rule out allergic drug re action as he isrecently just restarted taking his lithium. Patient advised to discuss takinglithium with his psychiatrist as soon as possible.Patient reassessed at [facility] e by me. Feels better at [...] of disposition: stableI have reviewed the [facility] medications:Prior to Admission medicationsMedication Sig Start [...] 10:46:05 PM EST [facility] - [facility] [id number] [facility] EMERGENCY DEPARTMENT [address] [facility] [address] [phone]/ Maxwell Bray (Male) [id number] ES I 3 ED Dispo:DISCHARGE Chief Complaint: Allergic Reaction Diagnosis: Allergic reaction, initial encounter [] Allergic reaction to drug, in itial encounter [] Current Providers: Attending: Javier Quezada Nurse Practitioner: Javier Ward Primary Nurse: HARINDER AcuñaN: [id number] [employer] [id number] - [facility] MrnMRN: [id number] [employer] [id number] - [facility] Age Sex 1970 AGE 49 SEX Male Primary Care Provider: Ritika Canas MD Gqrvvfwbr: (No Known Allergies)Date Reviewed: 08/16/2019Reviewed by: Zahraa Prince RN - Review CompleteED Provider Notes: No not es of this type exist for this encounter.ED Orders BUPROPION XL 300 MG 24 HR TAB [#[id number]] Priority: Routine Class: Historical Med LITHIUM CARBONATE 150 MG CAP [#[id number]] Priority: Routine Class: Historical Med FAMOTIDINE 20MG + NS 10 ML IV [#[id number]] Priority: STAT Class: Normal H2RA INDICATION -> Adverse reaction/Anaphylaxis SODIUM CH LORIDE 0.9 % IV [#[id number]] Priority: STAT Class: Normal METHYLPREDNISOLONE (PF) 125 MG/2 ML * [#[id number]] Priority: STAT Class: Normal ASPIRIN 81 MG CHEWABLE TAB [# [id number]] Priority: STAT Class: Normal PREDNISONE 50 MG TAB [#[id number]] Bridgette ority: Routine Class: Normal [id number] SUPERINTENDENT CUSTODIAN JANITOR - ED ONLY [#[id number]] Priority: STAT C lass: Hospital Performed Standing Order Information Remaining Occurrences:0/1 Interval:Contin uous Last released:08/16/2019 Released orders: Sat Aug 16, 2019 9:02 PM by: Javier POLLOCK Type: -> Bedside [id number] OBTAIN OLD EKG [#[id number]] Priority: Routi ne Class: Hospital Performed Standing Order Information Remaining Occurrences:0/1 Inter haile:ONE TIME Last released:08/16/2019 Released orders: Sat Aug 16, 2019 9:02 PM by: INDIO WARD [id number] PULSE OXIMETRY CONTINUOUS [#[id number]] Priority: STAT Class: H ospital Performed Standing Order Information Remaining Occurrences:0/1 Interval:CONTIN UOUS Last released:08/16/2019 Released orders: Sat Aug 16, 2019 9:02 PM by: Javier POLLOCK [id number] SUPERINTENDENT CUSTODIAN JANITOR - ED ONLY [#[id number]] Priority: STAT Class: Hospital Perfo rmed Type: -> Bedside Released on: 08/16/2019 9:02 PM [id number] OBTAIN OLD EKG [#[id number]] Priority: STAT Class: Hospital Performed Released on: 08/16/2019 9:02 PM [id number] PULSE OXIMETRY CONTINUOUS [#[id number]] Priority: STAT Class: Hospital Performed Relea sed on: 08/16/2019 9:02 PM [id number] DIET NPO [#[id number]] Priority: STAT Cla ss: Hospital Performed Standing Order Information Remaining Occurrences:0/1 Interval:DIET E FFECTIVE NOW Last released:08/16/2019 Released orders: Sat Aug 16, 2019 9:02 PM by: INDIO WARD NPO options: -> With Meds [id number] DIET NPO [#[id number]] Priority: STAT Class: Hospital Performed NPO options: -> With Meds Released on: 08/16/2019 9:02 PM [id number] SALINE LOCK IV [#[id number]] Priority: STAT Class: Hospital Performe d Standing Order Information Remaining Occurrences:0/1 Interval:ONE TIME Last released: 08/16/2019 Released orders: Sat Aug 16, 2019 9:02 PM by: INDIO POLLOCK [id number] SALIN E LOCK IV [#[id number]] Priority: STAT Class: Hospital Performed Released on : 08/16/2019 9:02 PM [id number] METABOLIC PANEL, COMPREHENSIVE [#[id number]] Priority: STAT Class: E R Collect Standing Order Information Remaining Occurrences:0/1 Interval:ONE TIME Last r eleased:08/16/2019 Released orders: [facility] Aug 16, 2019 9:02 PM by: INDIO POLLOCK [id number] CBC WITH AUTOMATED DIFF [#[id number]] Priority: STAT Class: ER Collect Standing Order Info rmation Remaining Occurrences:0/1 Interval:ONE TIME Last released:08/16/2019 Released orders: [facility] Aug 16, 2019 9:02 PM by: INDIO POLLOCK [id number] TROPONIN I [#[id number]] Priority: STAT Class: ER Collect Standing Order Information Remaining Occurre nces:0/1 Interval:ONE TIME Last released:08/16/2019 Released orders: [facility] Aug 16 9:02 PM by: INDIO POLLOCK [id number] MAGNESIUM [#[id number]] Priorit y: STAT Class: ER Collect Standing Order Information Remaining Occurrences:0/1 Inter haile:ONE TIME Last released:08/16/2019 Released orders: [facility] Aug 16, 2019 9:02 PM by: INDIO WARD [id number] D DIMER [#[id number]] Priority: STAT Class: E R Collect Standing Order Information Remaining Occurrences:0/1 Interval:ONE TIME Last r eleased:08/16/2019 Released orders: [facility] Aug 16, 2019 9:02 PM by: INDIO POLLOCK [id number] METABOLIC PANEL, COMPREHENSIVE [#[id number]] Priority: STAT Class: ER Collect Specimen Source: Plas ma Specimen Collected: 08/16/2019 9:00 PM Resulting Agency: [facility] Test ID: MPL Released on: 08/16/2019 9:02 PM [id number] CBC WITH AUTOMATED DIFF [#[id number]] Prior ity: STAT Class: ER Collect Specimen Source: Whole Blood Specimen Collected: 08/16/2019 9:00 PM Resultin g Agency: [facility] Test ID: [id number] Released on: 08/16/2019 9:02 PM [id number] TROPONIN I [#[id number]] Priority: STAT Class: ER Collect Specimen Source : Plasma Specimen Collected: 08/16/2019 9:00 PM Resulting Agency: [facility] Test ID: TROIP Released on: 08/16/2019 9:02 PM [id number] MAGNESIUM [#[id number]] Priority: STAT Class: ER Collect Specimen Source: Plasma Specimen Collected: 08/16/2019 9:00 PM Resultin g Agency: [facility] Test ID: MGPL Released on: 08/16/2019 9:02 PM [id number] D DIMER [#[id number]] Priority: STAT Class: ER Collect Specimen Source : Plasma Specimen Collected: 08/16/2019 9:00 PM Resulting Agency: [facility] Test ID: [id number] Released on: 08/16/2019 9:02 PM [id number] LITHIUM [#[id number]] Priority: STAT Class: ER Collect Standing Order Information Remaining Occurrences:0/1 Inter haile:ONE TIME Last released:08/16/2019 Released orders: Sat Aug 16, 2019 9:02 PM by: INDIO WRAD [id number] LITHIUM [#[id number]] Priority: STAT Class: E R Collect Specimen Source: Serum Specimen Collected: 08/16/2019 9:00 PM Resulting Agency: [facility] Test ID: LI Released on: 08/16/2019 9:02 PM [id number] EKG, 12 LEAD, INITIAL [#[id number]] Priority: STAT Class: Hospital Performed Standing Order Information Remainin g Occurrences:0/1 Interval:ONE TIME Last released:08/16/2019 Released orders : Sat Aug 16, 2019 9:02 PM by: INDIO POLLOCK Reason for Exam: -> Chest Pain [id number] EKG, 12 LEAD, INITIAL [#[id number]] Priority: STAT Class: Hospital Performed Resulting Age ncy: GSH MUSE Test ID: [id number] Reason for Exam: -> Chest Pain Released on: 08/16/2019 9:02 PM [id number] XR CHEST PORT [#[id number]] Priority: STAT Class: Hospital Performed Stand ing Order Information Remaining Occurrences:0/1 Interval:ONE TIME Last released:0 08/16/2019 Released orders: Sat Aug 16, 2019 9:02 PM by: INDIO POLLOCK Reason for Exam -> Chest Pain [id number] XR CHEST PORT [#[id number]] Priority: STAT Class: H ospital Performed Resulting Agency: [facility] Test ID: [id number] Reason for Exam -> Chest Pain Rele ased on: 08/16/2019 9:02 Maxwell Corona MR#: [id number] * Rm: [id number] Ht: 5' 10" Wt: 280 lb Code: Prior Iso:Diagnosis:Allergies: No Known Allergies -------- Current as of: 08/16/192245 GI=Given IC=IV Complet ed NB=New Bag --aspirin (ASPIRIN) tablet 325 mg #[id number] Admin Amount: 1 Tab (1 x 325 mg Tab) Ordered Dose: 325 mg Route: Oral Freq: ONCE Start Date: 12/24/13 No administration times (back 96 hours, ahead 96 hours). ------diphenhydrAMINE (BENADRYL) capsule 50 mg #[id number] Admin Amount: 1 Cap (1 x 50 mg Cap) Ordered Dose: 50 mg Route: Ora l Freq: NOW Start Date: 12/24/13 No administration times (back 96 hours, ahe ad 96 hours). ------diazepam (VALIUM) tablet 5 mg #[id number] Admin Amount: 1 Tab (1 x 5 mg Tab) Ordered Dose: 5 mg Route: Oral Freq: ON CE Start Date: 12/24/13 No administration times (back 96 hours, ahead 96 hours). ------lidocaine (XYLOCAINE) 10 mg/mL (1 %) injection 1-30 mL #[id number] Admin Amount: 1-30 mL Ordered Dose: 1-30 mL Route: IntraDERMal Freq: ONCE Start Date: 12/24/13 No administration times (back 96 hours, ahead 96 hours). ------heparin (PF) 2 units/ml in NS infusion 2,000 Units #[id number] Admin Amount: 1,000 mL = 2,000 Units of 2 Units/mL Ordered Dose: 1,000 mL Ro swinomish: Irrigation Freq: ONCE Start Date: 12/24/13 No administration times (back 96 hours, ahead 96 hours). ------heparinized saline 2 units/mL infusion 1,000 Units #[id number] Admin Amount: 500 mL = 1,000 Units of 2 Units/mL Ordered Dose: 500 mL Ro swinomish: IntraarTERial Freq: ONCE Start Date: 12/24/13 No administration times (back 96 hours, ahead 96 hours). ------0.9% sodium chloride infusion #[id number] Ordered Dose: 75 mL/hr Route: IntraVENous Freq: CONTINUOUS Start Date: 12/24/13 Rate: 75 mL/hr Duration: No administration times (back 96 hours, ahead 96 hours). ------ioversol (OPTIRAY) 320 mg iodine/mL contrast injection 1-100 mL #[id number] Admin Amount: 1-100 mL Ordered Dose: 1-100 mL Route: IntraVENous Freq: RAD O NCE Start Date: 12/24/13 No administration times (back 96 hours, ahead 96 hours).Maxwell Bray MR#: [id number] * Rm: [id number]: 5' 10" Wt: 280 lb Co de: Prior Iso:Diagnosis:Allergies: No Known Allergies -------- Current as of: 08/16/192245 GI=Given IC=IV Complet ed NB=New Bag --gadobutrol (GADAVIST) contrast solution 1-10 mL #[id number] Admin Amount: 1-10 mL Ordered Dose: 1-10 mL Route: IntraVENous Freq: RAD O NCE Start Date: 01/13/14 No administration times (back 96 hours, ahead 96 hours). ------sodium chloride (NS) flush 5-10 mL #[id number] Admin Amount: 5-10 mL Ordered Dose: 5-10 mL Route: IntraVENous Freq: RAD ONCE Start Date: 01/13/14 No administration times (back 96 hours, ahead 96 hours). ------sodium chloride (NS) 0.9 % flush #[id number] Ordered Dose: Route: Freq: Start Date: 01/13 No administration times (back 96 hours, ahead 96 hours). ------morphine injection 2 mg #[id number] Admin Amount: 1 mL = 2 mg of 2 mg/mL Ordered Dose: 2 mg Route: IntraVENous Freq: NOW Start Date: 03/13/15 No administration times (back 96 hours, ahe ad 96 hours). ------influenza vaccine (4 yr+)(PF) (FLUCELVAX QUAD) inj ection 0.5*#[id number] Admin Amount: 0.5 mL Ordered Dose: 0.5 mL Route: IntraMUSCular Freq: PRIOR TO DISCHARGE Start Date: 03/30/16 No administration times (back 96 hours, ahead 96 hours). ------oxyCODONE-acetaminophen (PERCOCET) 5-325 mg per tablet 1 Tab #[id number] Admin Amount: 1 Tab Ordered Dose: 1 Tab Route: Oral Freq: NOW Start Date: 09/07/17 No administration times (back 96 hours, ahead 96 hours). ------barium sulfate (READICAT) 2.1 % (w/v), 2.0 % (w /w) oral suspension 9*#[id number] Admin Amount: 900 mL Ordered Dose: 900 mL Route: Oral Delgado q: RAD ONCE Start Date: 10/15/17 No administration times (back 96 hours, ahead 96 hours). ------iopamidol (ISOVUE 300) 61 % contrast injection 100 mL #[id number] Admin Amount: 100 mL Ordered Dose: 100 mL Route: IntraVENous Freq: RAD ONC E Start Date: 10/15/17 No administration times (back 96 hours, ahead 96 hours).Maxwell Bray MR#: [id number] * Rm: [id number]: 5' 10" Wt: 280 lb Code: Prior Iso:Diagnosis:Allergies: No Known Allergies -------- Current as of: 08/16/192245 GI=Given IC=IV Complet ed NB=New Bag --risperiDONE (RisperDAL m-tabs) disintegrating tablet 1 mg #[id number] Admin Amount: 1 Tab (1 x 1 mg Tab) Ordered Dose: 1 mg Route: Oral Freq: ONCE Start Date: 12/24/17 No administration times (back 96 hours, ahead 96 hours). ------ALPRAZolam (XANAX) tablet 2 mg #[id number] Admin Amount: 4 Tab (4 x 0.5 mg Tab) Ordered Dose: 2 mg Route: Ora l Freq: NOW Start Date: 12/24/17 No administration times (back 96 hours, ahe ad 96 hours). ------lamoTRIgine (LaMICtal) tablet 100 mg #[id number] Admin Amount: 1 Tab (1 x 100 mg Tab) Ordered Dose: 100 mg Route: Oral Delgado q: ONCE Start Date: 12/24/17 No administration times (back 96 hours, ahead 96 hours). ------OLANZapine (ZyPREXA zydis) disintegrating tablet 5 mg #[id number] Admin Amount: 1 Tab (1 x 5 mg Tab) Ordered Dose: 5 mg Route: Oral Delgado q: ONCE Start Date: 12/25/17 No administration times (back 96 hours, ahead 96 hours). ------LORazepam (ATIVAN) tablet 2 mg #[id number] Admin Amount: 4 Tab (4 x 0.5 mg Tab) Ordered Dose: 2 mg Route: Ora l Freq: NOW Start Date: 12/25/17 No administration times (back 96 hours, [facility] ad 96 hours). ------LORazepam (ATIVAN) injection 1 mg #[id number] Admin Amount: 0.5 mL = 1 mg of 2 mg/mL Ordered Dose: 1 mg Route: Int Katherin Freq: NOW Start Date: 12/25/17 No administration times (back 96 hours, e ad 96 hours). ------barium sulfate (EZ PAQUE) 96 % (w/w) contrast suspension 17 6 g #[id number] Admin Amount: 176 g Ordered Dose: 176 g Route: Oral Freq: RAD ONCE Start Date: 08/02/18 No administration times (back 96 hours, ahead 96 hours). ------barium sulfate (EZ PAQUE) 96 % (w/w) contrast s uspension 176 g #[id number] Admin Amount: 176 g Ordered Dose: 176 g Route: Oral Delgado q: RAD ONCE Start Date: 08/02/18 No administration times (back 96 hours, ahead 96 hours).Maxwell Ritter MR#: [id number] * Rm: [id number]: 5' 10" Wt: 280 lb Co de: Prior Iso:Diagnosis:Allergies: No Known Allergies -------- Current as of: 08/16/192245 GI=Given IC=IV Complet ed NB=New Bag --aspirin chewable tablet 162 mg #[id number] Admin Amount: 2 Tab (2 x 81 mg Tab) Ordered Dose: 162 mg Route: Oral Freq: NOW Start Date: 08/10/19 No administration times (back 96 hours, ahead 96 hours). ------famotidine (PF) (PEPCID) 20 mg in 0.9% sodium chloride 10 mL inje cti*#[id number] Admin Amount: 20 mg Ordered Dose: 20 mg Route: IntraVENous Freq: EVERY 12 H OURS Start Date: 08/16/19 Administration times (back 96 hours, ahead 96 hours): 08/16/19: 2119G I 08/17/19: 89908/18/19: 89908/19/19: 89908/20/19: 899 2099 ---0.9% sodium chloride infusion 1,000 mL #[id number] Admin Amount: 1,000 mL Ordered Dose: 1,000 mL Route: IntraVENous Freq: ONC E Start Date: 08/16/19 Rate: 1,000 mL/hr Duration: Administration times (back 96 hours, ahead 96 hours): 08/16/19: 2118NB 2245IC -----methylPREDNISolone (PF) (Solu-MEDROL) injection 125 mg #[id number] Admin Amount: 2 mL = 125 mg of 125 mg/2 mL Ordered Dose: 125 mg Route: Int raVENous Freq: NOW Start Date: 08/16/19 Administration times (back 96 hours, ahe ad 96 hours): 08/16/19: 2118GI -----aspirin chewable tablet 162 mg #[id number] Admin Amount: 2 Tab (2 x 81 [...] mg by mouth three (3) times daily.[employer]pense [place] unt:Start Date:End Date:Doc. Provider: Paul Bradford MDpredniSONE [...] DDetails:In 2 daysComments:Contact Info:[phone]-up With:[facility] EMERGENCY DEPARTMENTDetails:Comments:As needed, If symptoms worsenContact Info:[address] Kevin WoodardLehigh [facility] [address] [place] [id number] Name Value Range Interpretation Code Description Data Melani rce(s) Supporting Document(s ) ID Date Data Source [id number] 08/16/2019 10:45:45 PM EST [facility] IV site clean/dry/intact, gauze dressing applied. Pt received written and verbaldischarge instructions. Verbalize d understanding of same. Ambulated out of EDwith steady gait and in no distress. Name Value Range Interpretation Code Description Data Melani rce(s) Supporting Document(s ) ID Date Data Source [id number] 08/16/2019 09:58:14 PM EST [facility] Name Value Range Interpretation Description Data Sup porting Code Source(s) Document(s ) [place] 0.21 0.6-1.2 Below low normal [facility] [Moles/volu MMOL/L [facility]] in Hospital Serum or Plasma ID Date Data Source [id number] 08/16/2019 09:52:19 PM EST [facility] Name Value Range Interpretation Code Description Data Melani rce(s) Supporting Document(s ) Fibrin <500 [facility] D-dimer [facility] [[facility]] [facility] in Platelet poor plasma (NOTE)Combination of a D-Dimer result wi thin the reference range and a lowclinical pretest probability has good negative pr edictive value fordeep venous thrombosis.If results are utilized for VTE evaluation, <500 ng/ml is consideredto be negative. ID Date Data Source [id number] 08/16/2019 09:44:39 PM [facility] Name Value Range Interpretation Description Data Sup porting Code Source(s) Document(s ) Troponin 0.00-0.05 [facility] - Good I.cardiac [facility] ] in Serum or Plasma (NOTE)The presence [...] to 1.50 ng/mL ID Date Data Source [id number] 08/16/2019 09:44:39 PM EST [facility] Name Value Range Interpretation Description Data Sup porting Code Source(s) Document(s ) Sodium 138 136-145 [facility] [Moles/volume] mmol/L [facility] in Serum or Hospital Plasma Potassium 3.4 3.5-5.1 Below low normal [facility] [Moles/volume] mmol/L [facility] in Serum or Hospital Plasma Chloride 108 98-107 Above high normal [facility] [Moles/volume] mmol/L [facility] in Serum or Hospital Plasma Carbon 20 21-32 Below low normal [facility] dioxide, total mmol/L [facility] [Moles/volume] Hospital in Serum or Plasma Anion gap in 14 10-20 [facility] Serum or mmol/L [facility] Plasma Hospital Glucose 105 74-106 [facility] [Mass/volume] mg/dL [facility] in Serum or Hospital Plasma Urea nitrogen 20 mg/dL 7-18 Above high normal [facility] [Mass/volume] [facility] in Serum or Hospital Plasma Creatinine 0.90 0.70-1.3 [facility] [Mass/volume] mg/dL 0 [facility] in Serum or Hospital Plasma Glomerular >60 [facility] filtration [facility] rate/1.73 sq M Hospital predicted among blacks [Volume Rate/Area] in Serum or Plasma by Creatinine-bas ed formula (MDRD) Glomerular >60 [facility] filtration [facility] rate/1.73 sq M Hospital predicted among non-blacks [Volume Rate/Area] in Serum or Plasma by Creatinine-bas ed formula (MDRD) (NOTE)Estimated GFR is calculated using the Modification of Diet in RenalDisease (MDRD) Study equation, reported for both Americans(GFRAA) and non- Americans (GFRNA), and normalized to 1.7 3y6hhej surface area. The physician must decide which [...] normal [facility] Serum or Plasma [facility] ital Bilirubin.total 0.3 mg/dL 0.2-1.0 [facility] [Mass/volume] in Serum or [facility] Plasma Alanine aminotransferase 37 U/L 13-61 [facility] [Enzymatic activity/volume] [facility] in Serum or Plasma Aspartate aminotransferase 22 U/L 15-37 [facility] HS - Good [Enzymatic activity/volume] [facility] in Serum or Plasma by With P-5'-P Alkaline phosphatase 98 U/L 45-117 [facility] ood [Enzymatic activity/volume] [facility] in Serum or Plasma Protein [Mass/volume] in 7.0 g/dL 6.4-8.2 [facility] Serum or Plasma [facility] ital Albumin [Mass/volume] in 3.7 g/dL 3.5-4.7 [facility] Serum or Plasma by [facility] ospital Bromocresol purple (BCP) dye binding method Globulin [Mass/volume] in 3.3 g/dL 1.7-4.7 [facility] Serum by calculation [facility] Albumin/Globulin [Mass 1.1 0.7-2.8 [facility] Ratio] in Serum or Plasma [facility] ID Date Data Source [id number] 08/16/2019 09:44:39 PM EST [facility] Name Value Range Interpretation Description Data Sup porting Code Source(s) Document(s ) Magnesium 2.3 mg/dL 1.6-2.6 [facility] [Mass/volume] [facility] in Serum or Hospital Plasma ID Date Data Source [id number] 08/16/2019 09:23:23 PM EST [facility] Name Value Range Interpretation Description Data Sup porting Code Source(s) Document(s ) Leukocytes 7.6 K/uL 4.8-10.6 [facility] - [#/volume] in Good Blood by [facility] Automated count Hospital Erythrocytes 4.97 4.70-6.0 [facility] - [#/volume] in M/uL 0 Good Blood by [facility] Automated [facility] Hemoglobin 15.2 14.0-18. [facility] - [Mass/volume] in g/dL 0 [facility] Blood [facility] Hematocrit 45.0 % 42.0-52. [facility] - [Volume 0 Good Fraction] of [facility] Blood by Hospital Automated count Erythrocyte mean 90.5 FL 81.0-94. [facility] - corpuscular 0 Good volume [Entitic [facility] volume] by [facility] Automated count Erythrocyte mean 30.6 PG 27.0-35. [facility] - corpuscular 0 Good hemoglobin [facility] [Entitic mass] [facility] by Automated count Erythrocyte mean 33.8 30.7-37. [facility] - corpuscular g/dL 3 Good hemoglobin [facility] [Mass/volume] by Automated count Erythrocyte 13.0 % 11.5-14. [facility] - distribution 0 Good width [Ratio] by [facility] Automated count [facility] Platelets 183 K/uL 130-400 [facility] - [#/volume] in Good Blood by [facility] Automated count [facility] Platelet mean 8.5 FL 9.2-11.8 Below low normal [facility] - volume [Entitic Good volume] in Blood [facility] Hospital count Nucleated 0.0 PER 0 [facility] - erythrocytes/100 100 WBC Good leukocytes [facility] [Ratio] in Blood [facility] Nucleated 0.00 0.0-0.01 [facility] - erythrocytes K/uL Good [#/volume] in [facility] Segmented 68 % 48.0-72. [facility] - neutrophils/100 0 Good leukocytes in [facility] Lymphocytes/100 19 % 18.0-40. [facility] - leukocytes in 0 [facility] Blood [facility] Monocytes/100 7 % 2.0-12.0 [facility] - leukocytes in [facility] Blood [facility] Eosinophils/100 5 % 0.0-7.0 [facility] - leukocytes in [facility] Blood [facility] Basophils/100 1 % 0.0-3.0 [facility] - leukocytes in [facility] Blood [facility] Immature 1 % 0-0.5 Above high normal [facility] - granulocytes/100 Good leukocytes in [facility] Blood by Hospital Automated count Segmented 5.2 K/UL 2.3-7.6 [facility] - neutrophils Good [#/volume] in [facility] Lymphocytes 1.5 K/UL 0.9-4.2 [facility] - [#/volume] in [facility] Monocytes 0.6 K/UL 0.1-1.7 [facility] - [#/volume] in [facility] Eosinophils 0.3 K/UL 0.0-1.0 [facility] - [#/volume] in [facility] Basophils 0.0 K/UL 0.0-0.4 [facility] - [#/volume] in [facility] Immature 0.0 K/UL 0.0-0.17 [facility] - granulocytes Good [#/volume] in [facility] by [facility] Automated count Differential [facility] - cell count Good method [facility] ID Date Data Source [id number] 08/16/2019 08:50:30 PM EST [facility] sudden onset of difficulty breathing and rash while eating leticia food, rashacross face and chest slightly raised, no vesicles, denies any chest pain deniesany itching at this time. Went to [facility], recei nataliia benadryl 50 mg IMfrom EMS. Name Value Range Interpretation Code Description Data [facility] Supporting Document(s ) ID Date Data Source [id number] 08/11/2019 08:03:02 AM EST [facility] History:Chest pain. Shortness of breath. [...] Name Value Range Interpretation Code Description Data [facility] rce(s) Supporting Document(s ) ID Date Data Source [id number] 08/11/2019 04:22:14 AM EST [facility] The history is provided by [...] of morbidity or mortality cardiac cath at [facility] approx 6-8 months ag [...] e Gets together: Not on file Attends voodoo service: Not on file 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 [...] QTC Calculation (Bezet) 435 ms Calculated P [place] 55 degrees Calculated R [place] 34 degrees Calculated T [place] 9 degrees Diagnosis S inus tachycardiaOtherwise normal [...] Time: 08/11/19 12:01 AMResult Value Ref Range [place] level <0.20 (L) 0.6 - 1.2 MMOL/LLACTIC [...] trates no acute pathology. Interpreted by Mayank Quezdaa MD<EMERGENCY DEPARTMENT CASE SUMMARY>Impression/Differential Diagnosis: rule out [...] 08/11/2019 01:42:54 AM EST [facility] [id number] [facility] EMERGENCY DEPARTMENT [address] [facility] [facility] [id number] [phone] Maxwell Mitchell Anam (Male) [id number] JOSE 2 ED Dispo:DISCHARGE Chief Complaint: Chest Pain, Shortne ss of Breath Diagnosis: Dyspnea, unspecified type [] Current Providers: Atte nding: Javier Quezada Primary Nurse: ELIS WilsonN: [id number] Print [employer] p [id number] - Bshsi [employer] MrnMRN: [id number] Print Group [phone] - Bs hsi [employer]va Age SexDOB 1970 AGE 49 SEX Male Primary Care Provider: Ritika Canas MD Phone: [phone]: (No Known Allergies)Date Reviewed: 08/10/2019Reviewed by: Chiquis Christianson CompleteED Provider Notes: No notes of this type exist for this encounter.ED Orders [id number] E KG, 12 LEAD, INITIAL [#[id number]] Priority: STAT Class: Hospital Performed Stand ing Order Information Remaining Occurrences:0/1 Interval:ONE TIME Last released:0 08/10/2019 Released orders: Arabella Aug 10, 2019 10:17 PM by: CHIQUIS CHRISTIANSON Reason for Exam: -> CP SOB [id number] EKG, 12 LEAD, INITIAL [#[id number]] Priority: STAT Class: Hospital Performed Specimen Collected: 08/10/2019 10:14 PM Resulting Agency: [facility] Test ID: [id number] Reason for Exam: -> CP SOB Released on: 08/10/2019 10:17 PM [id number] EKG, 12 LE AD, INITIAL [#[id number]] Priority: STAT Class: Hospital Performed Standing Or mariano Information Remaining Occurrences:0/1 Interval:ONE TIME Last released:0 08/10/2019 Released orders: Arabella Aug 10, 2019 11:51 PM by: MAYANK QUEZADA V Reason fo r Exam: -> Chest Pain [id number] EKG, 12 LEAD, INITIAL [#[id number]] Priority: STAT C lass: Hospital Performed Resulting Agency: [facility] Test ID: [id number] Reason for Exam: -> Chest P ain Released on: 08/10/2019 11:51 PM [id number] SUPERINTENDENT CUSTODIAN JANITOR - ED ONLY [#[id number]] Priority: STAT Class: Hospital Performed Standing Order Information Remaining Occurre nces:0/1 Interval:Continuous Last released:08/10/2019 Released orders : Arabella Aug 10, 2019 11:51 PM by: MAYANK QUEZADA V Type: -> Bedside [id number] PULSE OXIMETR Y CONTINUOUS [#[id number]] Priority: STAT Class: Hospital Performed Standing Or mariano Information Remaining Occurrences:0/1 Interval:CONTINUOUS Last released :08/10/2019 Released orders: Grant Aug 10, 2019 11:51 PM by: MAYANK QUEZADA V [id number] PULSE OXIMETRY SPOT CHECK [#[id number]] Priority: STAT Class: Hospital Performe d Standing Order Information Remaining Occurrences:0/1 Interval:ONE TIME Last r eleased:08/10/2019 Released orders: Grant Aug 10, 2019 11:51 PM by: MAYANK QUEZADA V [id number] OBTAIN OLD EKG [#[id number]] Priority: Routine Class: Hospital Perfo rmed Standing Order Information Remaining Occurrences:0/1 Interval:ONE TI ME Last released:08/10/2019 Released orders: Grant Aug 10, 2019 11:51 PM by: MAYANK QUEZADA V [id number] SUPERINTENDENT CUSTODIAN JANITOR - ED ONLY [#[id number]] Priority: STAT Class: H ospital Performed Type: -> Bedside Released on: 08/10/2019 11:51 PM [id number] PULSE OXIM ETRY CONTINUOUS [#[id number]] Priority: STAT Class: Hospital Performed Released on : 08/10/2019 11:51 PM [id number] PULSE OXIMETRY SPOT CHECK [#[id number]] Priority: STAT C lass: Hospital Performed Released on: 08/10/2019 11:51 PM [id number] OBTAIN OLD EKG [#[id number]] Priority: STAT Class: Hospital Performed Released on: 08/10/2019 11: 51 PM [id number] RT--OXYGEN CANNULA [#[id number]] Priority: STAT Class: H ospital Performed Standing Order Information Remaining Occurrences:0/1 Interval:CONTIN UOUS Last released:08/10/2019 Released orders: Grant Aug 10, 2019 11:51 PM by: MAYANK PRADO V Comment:TITRATE UP TO 4 L / MINUTE TO MAINTAIN O2 SATS GREATER THAN OR EQUAL TO 94% LPM -> 2 Indications for O2? -> CHEST PAIN [id number] RT--OXYGEN CANNULA [#[id number]] Priority: STAT Class: Hospital Performed Comment:TITRATE UP TO 4 L / MINUTE TO MAINTAIN O2 SATS GREATER THAN OR EQUAL TO 94% LPM -> 2 Indications fo r O2? -> CHEST PAIN Released on: 08/10/2019 11:51 PM [id number] DIET NPO [#[id number]] Priority: STAT Class: Hospital Performed Standing Order Information Remaining Occurrences:0/1 Interval:DIET EFFECTIVE NOW Last released:08/10 Released orders: Grant Aug 10, 2019 11:51 PM by: MAYANK QUEZADA V NPO options: - > With Meds [id number] DIET NPO [#[id number]] Priority: STAT Class: H ospital Performed NPO options: -> With Meds Released on: 08/10/2019 11:51 PM [id number] SALINE LOCK IV [#[id number]] Priority: STAT Class: Hospital Performed Standing O rder Information Remaining Occurrences:0/1 Interval:ONE TIME Last released:0 08/10/2019 Released orders: Grant Aug 10, 2019 11:51 PM by: MAYANK QUEZADA V [id number] SALI NE LOCK IV [#[id number]] Priority: STAT Class: Hospital Performed Relea sed on: 08/10/2019 11:51 PM [id number] METABOLIC PANEL, COMPREHENSIVE [#[id number]] Bridgette ority: STAT Class: ER Collect Standing Order Information Remaining Occurrences:0/1 In terval:ONE TIME Last released:08/10/2019 Released orders: Grant Aug 10, 2019 11:51 PM by: MAYANK QUEZADA V [id number] CBC WITH AUTOMATED DIFF [#[id number]] Priority: STAT Class: ER Collect Standing Order Information Remaining Occurrences:0/1 Inter haile:ONE TIME Last released:08/10/2019 Released orders: Grant Aug 10, 2019 11:51 PM by: MAYANK QUEZADA V [id number] TROPONIN I [#[id number]] Priority: STAT Class: ER Collect Standing Order Information Remaining Occurrences:0/1 Inter haile:ONE TIME Last released:08/10/2019 Released orders: Grant Aug 10, 2019 11:51 PM by: MAYANK QUEZADA V [id number] MAGNESIUM [#[id number]] Priority: STAT Class: ER Collect Standing Order Information Remaining Occurrences:0/1 Inter haile:ONE TIME Last released:08/10/2019 Released orders: Grant Aug 10, 2019 11:51 PM by: MAYANK QUEZADA V [id number] BNP [#[id number]] Priority: STAT Class: ER Collect Standing Order Information Remaining Occurrences:0/1 Inter haile:ONE TIME Last released:08/10/2019 Released orders: Grant Aug 10, 2019 11:51 PM by: MAYANK QUEZADA V [id number] D DIMER [#[id number]] Priority: STAT Class: ER Collect Standing Order Information Remaining Occurrences:0/1 Inter haile:ONE TIME Last released:08/10/2019 Released orders: Grant Aug 10, 2019 11:51 PM by: MAYANK QUEZADA V [id number] PROTHROMBIN TIME + INR [#[id number]] Priority: STAT Class: ER Collect Standing Order Information Remaining Occurrences:0/1 Inter haile:ONE TIME Last released:08/10/2019 Released orders: Grant Aug 10, 2019 11:51 PM by: MAYANK QUEZADA V [id number] PTT [#[id number]] Priority: STAT Class: ER Collect Specimen Source: Blood Standing Order Information Remaining Occurrences:0 /1 Interval:ONE TIME Last released:08/10/2019 Released orders: Grant Aug 10, 2019 11:51 PM by: MAYANK QUEZADA V [id number] LITHIUM [#[id number]] Pr iority: STAT Class: ER Collect Standing Order Information Remaining Occurrences:0/1 I nterval:ONE TIME Last released:08/10/2019 Released orders: Grant Aug 10, 2019 11:51 PM by: MAYANK QUEZADA V [id number] METABOLIC PANEL, COMPREHENSIVE [#[id number]] Bridgette ority: STAT Class: ER Collect Specimen Source: Plasma Specimen Collected: 08/11/2019 12:01 AM Resulting Agency: [facility] Test ID: MPL Released on: 08/10/2019 11:51 PM [id number] CBC WITH AUTOMATED DIFF [#[id number]] Priority: STAT Class: E R Collect Specimen Source: Whole Blood Specimen Collected: 08/11/2019 12:01 AM Resulting Agency: [facility] Test ID: [id number] Released on: 08/10/2019 11:51 PM [id number] TROPON IN I [#[id number]] Priority: STAT Class: ER Collect Specimen Source: [place] sma Specimen Collected: 08/11/2019 12:01 AM Resulting Agency: [facility] RY Test ID: TROIP Released on: 08/10/2019 11:51 PM [id number] MAGNESIUM [#[id number]] Priority: STAT Class: ER Collect Specimen Source: Plasma Specimen Collec hyun: 08/11/2019 12:01 AM Resulting Agency: [facility] Test ID: MGPL Re leased on: 08/10/2019 11:51 PM [id number] BNP [#[id number]] Priority : STAT Class: ER Collect Specimen Source: Plasma Specimen Collected: 08/11/2019 12:01 AM Resultin g Agency: [facility] Test ID: BNPPB Released on: 08/10/2019 11:51 PM [id number] D DIMER [#[id number]] Priority: STAT Class: ER Collect Speci men Source: Plasma Specimen Collected: 08/11/2019 12:01 AM Resulting Agency: [facility] Test ID: DDIME Released on: 08/10/2019 11:51 PM [id number] PROTHROMBIN TIME + INR [#[id number]] Priority: STAT Class: ER Collect Specimen Source: Plasma Specimen Collec hyun: 08/11/2019 12:01 AM Resulting Agency: [facility] Test ID: APTHR R eleased on: 08/10/2019 11:51 PM [id number] PTT [#[id number]] Priorit y: STAT Class: ER Collect Specimen Source: Plasma Specimen Collected: 08/11/2019 12:01 AM Resultin g Agency: [facility] Test ID: APTT Released on: 08/10/2019 11:51 PM [id number] LITHIUM [#[id number]] Priority: STAT Class: ER Collect Speci men Source: Serum Specimen Collected: 08/11/2019 12:01 AM Resulting Agency: [facility] Test ID: LI Released on: 08/10/2019 11:51 PM [id number] LACTIC ACID [#[id number]] Priority: STAT Class: ER Collect Standing Order Information Remainin g Occurrences:0/1 Interval:ONE TIME Last released:08/11/2019 Released orders : Mon Aug 11, 2019 12:15 AM by: KATI WILSON [id number] LACTIC ACID [#[id number]] Priority: STAT Class: ER Collect Specimen Source: Plasma Specimen Collec hyun: 08/11/2019 12:01 AM Resulting Agency: [facility] Test ID: LAC Rel eased on: 08/11/2019 12:15 AM ASPIRIN 81 MG CHEWABLE TAB [#[id number]] Priority: STAT Class: Normal [id number] XR CHEST PORT [#[id number]] Priority: STAT Cl ass: Hospital Performed Standing Order Information Remaining Occurrences:0/1 Inter haile:ONE TIME Last released:08/10/2019 Released orders: Sun Aug 10, 2019 11:51 PM by: MAYANK QUEZADA V Reason for Exam -> Chest Pain [id number] XR CHEST PORT [#[id number]] Priority: STAT Class: Hospital Performed Resulting Agency: [facility] Test ID: [id number] Reason for Exam -> Chest Pain Released on: 08/10/2019 11:51 PM [id number] INFLUENZA A & B AG (RAPID TEST) [#[id number]] Priority: STAT Class: ER Collect Sta nding Order Information Remaining Occurrences:0/1 Interval:ONE TIME Last released: 08/10/2019 Released orders: Sun Aug 10, 2019 11:51 PM by: MAYANK QUEZADA V [id number] INFL UENZA A & B AG (RAPID TEST) [#[id number]] Priority: STAT Class: ER Collect Specimen Source : Nasal washing Specimen Collected: 08/11/2019 12:18 AM Resulting Agency: [facility] Test ID: INFLUA Released on: 08/10/2019 11:51 PM [id number] CULTURE, BLOOD [#[id number]] Priority: STAT Class: ER Collect Specimen Source: Blood Standing Order Information Remaining Occurrences:0/1 Interval:ONE TIME Last released:0 08/11/2019 Released orders: SunAug 11, 2019 12:15 AM by: KATI WILSON [id number] CULTU RE, BLOOD [#[id number]] Priority: STAT Class: ER Collect Specimen Source : Blood Standing Order Information Remaining Occurrences:0/1 Interval:ONE TI ME Last released:08/11/2019 Released orders: SunAug 11, 2019 12:15 AM by: KATI WILSON [id number] CULTURE, BLOOD [#[id number]] Priority: STAT Class: E R Collect Specimen Source: Blood Specimen Collected: 08/11/2019 12:33 AM Resulting Agency: [facility] Test ID: HBCS Released on: 08/11/2019 12:15 AM [id number] ALEK SWARTZ [#[id number]] Priority: STAT Class: ER Collect Specimen Source: Calli od Specimen Collected: 08/11/2019 12:43 AM Resulting Agency: [facility] Test ID: HBCS Released on: 08/11/2019 12:15 AMMaxwell Bray MR#: [id number] Acct#: [id number]* Rm: [id number]: 5' 10" Wt: 280 lb Code: Prior Iso:Diagnosis:Allergies: No Kno wn Allergies -------- Current as of: 08/11/19141 GI=Given -------aspirin (ASPIRIN) tablet 325 mg #[id number] Admin Amount: 1 Tab (1 x 325 mg Tab) Ordered Dose: 325 mg Route: Oral Freq: ONCE Start Date: 12/24/13 No administration times (b ack 96 hours, ahead 96 hours). ------diphenhydrAMINE (BENADRYL) capsule 50 mg #[id number] Admin Amount: 1 Cap (1 x 50 mg Cap) Ordered Dose: 50 mg Ro [place]: Oral Freq: NOW Start Date: 12/24/13 No administration times (back 96 hours, ahead 96 hours). ------diazepam (VALIUM) tablet 5 mg #[id number] Admin Amount: 1 Tab (1 x 5 mg Tab) Ordered Dose: 5 mg Route: Oral Freq: ONCE Start Date: 12/24/13 No administration times (back 96 hours, ahead 96 hours). ------lidocaine (XYLOCAINE) 10 mg/mL (1 %) injection 1-3 0 mL #[id number] Admin Amount: 1-30 mL Ordered Dose: 1-30 mL Route: Int raDERMal Freq: ONCE Start Date: 12/24/13 No administration times (back 96 hours, ahead 96 hours). ------heparin (PF) 2 units/ml in NS infusion 2,000 Units #[id number] Admin Amount: 1,000 mL = 2,000 Units of 2 Units/mL Ordered Dose: 1,000 mL Route: Irrigation Freq: ONCE Start Date: 12/24/13 No administration times (back 96 hours, ahead 96 hours). ------heparinized saline 2 units/mL infusion 1,000 Units #[id number] Admin Amount: 500 mL = 1,000 Units of 2 Units/mL Ordered Dose: 500 m L Route: IntraarTERial Freq: ONCE Start Date: 12/24/13 No admini stration times (back 96 hours, ahead 96 hours). ------0.9% sodium chloride infusion #[id number] Ordered Dose: 75 mL/hr Route: IntraVENous Freq: CONTINUOUS Start Date: 12/24/13 Rate: 75 mL/hr Duration: No administration ti mes (back 96 hours, ahead 96 hours). ------ioversol (OPTIRAY) 320 mg iodine/mL contrast inje ction 1-100 mL #[id number] Admin Amount: 1-100 mL Ordered Dose: 1-100 mL Ro [place]: IntraVENous Freq: RAD ONCE Start Date: 12/24/13 No administration times (back 96 hours, ahead 96 hours).Maxwell Bray MR#: [id number] * Rm: [id number] Ht: 5' 10" Wt: 280 lb Code: Prior Iso:Diagnosis:Allergies: No Known Allergies -------- Current as of: 08/11/19 0142 GI=Given -------gadobutrol (GADAVIST) contrast solution 1-10 mL #[id number] Admin Amount: 1-10 mL Ordered Dose: 1-10 mL Route: Int raVENous Freq: RAD ONCE Start Date: 01/13/14 No administration times (back 96 hours, ahead 96 hours). ------sodium chloride (NS) flush 5-10 mL #[id number] Admin Amount: 5-10 mL Ordered Dose: 5-10 mL Route: IntraVENo us Freq: RAD ONCE Start Date: 01/13/14 No administration times (back 96 hours, ahe ad 96 hours). ------sodium chloride (NS) 0.9 % flush #[id number] Ordered Dose: Route: Freq: Start Date: 01/13/14 No administration times (back 96 hours, ahead 96 hours). ------morphine injection 2 mg #[id number] Admin Amount: 1 mL = 2 mg of 2 mg/mL Ordered Dose: 2 mg Route: IntraVENous Freq: NOW Start Date: 03/13/15 No administration t imes (back 96 hours, ahead 96 hours). ------influenza vaccine (4 yr+)(PF) (FLUCELVAX Q UAD) injection 0.5*#[id number] Admin Amount: 0.5 mL Ordered Dose: 0.5 mL Route: Int raMUSCular Freq: PRIOR TO DISCHARGE Start Date: 03/30/16 No administration times (back 9 6 hours, ahead 96 hours). ------oxyCODONE-acetam inophen (PERCOCET) 5-325 mg per tablet 1 Tab #[id number] Admin Amount: 1 Tab Ordered Dose: 1 Tab Route: Oral Freq: NOW Start Date: 09/07/17 No administration times (back 96 hours, ahe ad 96 hours). ------barium sulfate (READICAT) 2.1 % (w/v), 2.0 % (w/w) oral suspension 9*#[id number] Admin Amount: 900 mL Ordered Dose: 900 mL Route: Oral Delgado q: RAD ONCE Start Date: 10/15/17 No administration times (back 96 hours, ahe ad 96 hours). ------iopamidol (ISOVUE 300) 61 % contrast injection 100 mL #[id number] Admin Amount: 100 mL Ordered Dose: 100 mL Route: Int raVENous Freq: RAD ONCE Start Date: 10/15/17 No administration times (back 96 hours, ahead 96 hours).Maxwell Bray MR#: [id number] * Rm: [id number]: 5' 1 0" Wt: 280 lb Code: Prior Iso:Diagnosis:Allergies: No Known Allergies -------- Current as of: 08/11/192 GI=Given -------risperiDONE (RisperDAL m-tabs) disintegrating tablet 1 mg #[id number] Admin Amount: 1 Tab (1 x 1 mg Tab) Ordered Dose: 1 mg Route: Oral Freq: ONCE Start Date: 12/24/17 No administration times (back 96 hours, ahead 96 hours). ------ALPRAZolam (XANAX) tablet 2 mg #[id number] Admin Amount: 4 Tab (4 x 0.5 mg Tab) Ordered Dose: 2 mg Route: Oral Freq: NOW Start Date: 12/24/17 No administration times (back 96 hours, ahead 96 hours). ------lamoTRIgine (LaMICtal) tablet 100 mg #[id number] Admin Amount: 1 Tab (1 x 100 mg Tab) Ordered Dose: 100 mg Route: Oral Freq: ONCE Start Date: 12/24/17 No administration times (back 96 hours, ahead 96 hours). ------OLANZapine (ZyPREXA zydis) disintegrating tablet 5 mg #[id number] Admin Amount: 1 Tab (1 x 5 mg Tab) Ordered Dose: 5 mg Route: Oral Freq: ONCE Start Date: 12/25/17 No administration times (back 96 hours, ahead 96 hours). ------LORazepam (ATIVAN) tablet 2 mg #[id number] Admin Amount: 4 Tab (4 x 0.5 mg Tab) Ordered Dose: 2 mg Route: Oral Freq: NOW Start Date: 12/25/17 No administration times (back 96 hours, ahead 96 hours). ------LORazepam (ATIVAN) injection 1 mg #[id number] Admin Amount: 0.5 mL = 1 mg of 2 mg/mL Ordered Dose: 1 mg Route: IntraVENous Freq: NOW Start Date: 12/25/17 No administration ti mes (back 96 hours, ahead 96 hours). ------barium sulfate (EZ PAQUE) 96 % (w/w) contrast suspensio n 176 g #[id number] Admin Amount: 176 g Ordered Dose: 176 g Route: Oral Delgado q: RAD ONCE Start Date: 08/02/18 No administration times (back 96 hours, [facility] ad 96 hours). ------barium sulfate (EZ PAQUE) 96 % (w/w) contrast suspensio n 176 g #[id number] Admin Amount: 176 g Ordered Dose: 176 g Route: Oral Delgado q: RAD ONCE Start Date: 08/02/18 No administration times (back 96 hours, e ad 96 hours).Maxwell Bray MR#: [id number] * Rm: [id number]: 5' 10" Wt: 280 lb Code: Prior Iso:Diagnosis:Allergies: No Known Allergies -------- Current as of: 08/11/19 0142 GI=Given -------aspirin chewable tablet 162 mg #[id number] Admin Amount: 2 Tab (2 x 81 [...] 1 dayComments:Contact Info:Chino Rodriguez [address] [phone]-iw With:Detail s:Comments:As needed, If symptoms worsenContact Info: Name Value Range Interpretation Code Description Data Melani rce(s) Supporting Document(s ) ID Date Data Source [id number] 08/11/2019 01:40:37 AM EST [facility] I have reviewed discharge instructions w ith the patient and spouse. The patientand spouse verbalized understanding.\\ Name Value Range Interpretation Code Description Data Melani rce(s) Supporting Document(s ) ID Date Data Source [id number] 08/16/2019 06:35:29 AM [facility] Name Value Range Interpretation Description Data Sup porting Code Source(s) Document(s ) Service comment [facility] Bacteria [facility] - Good [facility] ID Date Data Source [id number] 08/16/2019 06:35:28 AM [facility] Name Value Range Interpretation Description Data Sup porting Code Source(s) Document(s ) Service comment [facility] Bacteria BSS - Good identified in [facility] specimen by Culture ID Date Data Source [id number] 08/11/2019 12:56:01 AM EST [facility] Name Value Range Interpretation Description Data Sup porting Code Source(s) Document(s ) Influenza virus NEG [facility] A Ag [Presence] [facility] in [facility] by Immunoassay Influenza virus NEG [facility] - [facility] B Ag [Presence] [facility] by Immunoassay IMMUNOCHROMATOGRAPHIC MEMBRANE ASSAYResu lt: Negative for Influenza A and BNote: A negative result does not exclude an infl uenza virus infection, including H1N1. If more conclusive testing is desired, foll ow-up confirmatory testing is warranted. Specimen source [Identifier] of Unspecified [facility] specimen ID Date Data Source [id number] 08/11/2019 01:35:58 AM EST [facility] Value Range Interpretation Description Data Sup porting Code Source(s) Document(s ) Prothrombin 9.6 sec 9.4-11.1 BSS - [facility] time (PT) [facility] INR in 0.9 0.8-1.2 [facility] - Good Platelet poor [facility] plasma by Hospital Coagulation assay ID Date Data Source [id number] 08/11/2019 01:35:58 AM EST [facility] Value Range Interpretation Description Data Sup porting Code Source(s) Document(s ) aPTT in 23.1 SEC 21.0-28. [facility] - Good Platelet poor 0 [facility] plasma by Hospital Coagulation assay Therapeutic Range = 42.0-60.0 secs ID Date Data Source [id number] 08/11/2019 01:30:36 AM EST [facility] Value Range Interpretation Description Data Sup porting Code Source(s) Document(s ) Natriuretic 19 pg/mL 0-100 [facility] peptide [facility] [Mass/volume] [facility] in Serum or Plasma ID Date Data Source [id number] 08/11/2019 01:25:10 AM EST [facility] Value Range Interpretation Code Description Data Supporting Source(s) Document(s ) [place] 0.6-1.2 Below low normal [facility] - Good [Moles/volum [facility] e] in Serum Hospital or Plasma ID Date Data Source [id number] 08/11/2019 01:20:56 AM EST [facility] Value Range Interpretation Code Description Data Melani rce(s) Supporting Document(s ) Fibrin <500 BSS - [facility] D-dimer [facility] [Mass/volume] [facility] in Platelet poor plasma (NOTE)Combination of a D-Dimer result wi thin the reference range and a lowclinical pretest probability has good negative pr edictive value fordeep venous thrombosis.If results are utilized for VTE evaluation, <500 ng/ml is consideredto be negative. ID Date Data Source [id number] 08/11/2019 01:09:42 AM EST [facility] Value Range Interpretation Description Data Sup porting Code Source(s) Document(s ) Lactate 1.7 0.4-2.0 [facility] - Good [Moles/volu MMOL/L [facility] nh] in Hospital Serum or Plasma ID Date Data Source [id number] 08/11/2019 01:09:42 AM [facility] Value Range Interpretation Description Data Sup porting Code Source(s) Document(s ) Troponin 0.00-0.05 [facility] - Good I.cardiac [facility] [Mass/volume Hospital ] in Serum or Plasma [...] to 1.50 ng/mL ID Date Data Source [id number] 08/11/2019 01:09:42 AM [facility] Value Range Interpretation Description Data Sup porting Code Source(s) Document(s ) Sodium 140 136-145 [facility] - Good [Moles/volume] mmol/L [facility] in Serum or Hospital Plasma Potassium 3.9 3.5-5.1 [facility] - Good [Moles/volume] mmol/L [facility] in Serum or Hospital Plasma Chloride 113 98-107 Above high normal [facility] - Good [Moles/volume] mmol/L [facility] in Serum or Hospital Plasma Carbon 21 21-32 [facility] - Good dioxide, total mmol/L [facility] [Moles/volume] Hospital in Serum or Plasma Anion gap in 10 10-20 [facility] - Good Serum or mmol/L [facility] Plasma Hospital Glucose 90 mg/dL 74-106 [facility] - Good [Mass/volume] [facility] in Serum or Hospital Plasma Urea nitrogen 18 mg/dL 7-18 [facility] - Good [Mass/volume] [facility] in Serum or Hospital Plasma Creatinine 0.78 0.70-1.3 [facility] - Good [Mass/volume] mg/dL 0 [facility] in Serum or Hospital Plasma Glomerular >60 [facility] - Good filtration [facility] rate/1.73 sq M Hospital predicted among blacks [Volume Rate/Area] in Serum or Plasma by Creatinine-bas ed formula (MDRD) Glomerular >60 [facility] - Good filtration [facility] rate/1.73 sq M Hospital predicted among non-blacks [Volume Rate/Area] in Serum or Plasma by Creatinine-bas ed formula (MDRD) (NOTE)Estimated GFR is calculated using the Modification of Diet in RenalDisease (MDRD) Study equation, reported for both Americans(GFRAA) and non- Americans (GFRNA), and normalized to 1.7 5g7gbvm surface area. The physician must decide which [...] normal [facility] - Good Serum or Plasma [facility] H[facility] ital Bilirubin.total 0.5 mg/dL 0.2-1.0 [facility] - Good [Mass/volume] in Serum or [facility] Plasma Alanine aminotransferase 29 U/L 13-61 [facility] - Good [Enzymatic activity/volume] [facility] in Serum or Plasma Aspartate aminotransferase 18 U/L 15-37 [facility] HS - Good [Enzymatic activity/volume] [facility] in Serum or Plasma by With P-5'-P Alkaline phosphatase 98 U/L 45-117 [facility] - G ood [Enzymatic activity/volume] [facility] in Serum or Plasma Protein [Mass/volume] in 6.7 g/dL 6.4-8.2 [facility] - Good Serum or Plasma [facility] H[facility] ital Albumin [Mass/volume] in 3.4 g/dL 3.5-4.7 Below low normal [facility] - Good Serum or Plasma by [facility] oslydiatal Bromocresol purple (BCP) dye binding method Globulin [Mass/volume] in 3.3 g/dL 1.7-4.7 [facility] - Good Serum by [facility] Albumin/Globulin [Mass 1.1 0.7-2.8 [facility] - Good Ratio] in Serum or Plasma [facility] ID Date Data Source [id number] 08/11/2019 01:09:42 AM EST [facility] - Good [facility] Name Value Range Interpretation Description Data Sup porting Code Source(s) Document(s ) Magnesium 2.1 mg/dL 1.6-2.6 [facility] - Good [Mass/volume] [facility] in Serum or Hospital Plasma ID Date Data Source [id number] 08/11/2019 01:01:18 AM EST [facility] - Good [facility] Name Value Range Interpretation Description Data Sup porting Code Source(s) Document(s ) Leukocytes 7.7 K/uL 4.8-10.6 [facility] - [#/volume] in Good Blood by [facility] Automated [facility] Erythrocytes 4.93 4.70-6.0 [facility] - [#/volume] in M/uL 0 Good Blood by [facility] Automated [facility] Hemoglobin 14.9 14.0-18. [facility] - [Mass/volume] in g/dL [address] [facility] Hematocrit 44.4 % 42.0-52. [facility] - [Volume 0 Good Fraction] of [facility] Blood by [facility] Automated count Erythrocyte mean 90.1 FL 81.0-94. [facility] - corpuscular 0 Good volume [Entitic [facility] volume] by Hospital Automated count Erythrocyte mean 30.2 PG 27.0-35. [facility] - corpuscular 0 Good hemoglobin [facility] [Entitic mass] [facility] by Automated count Erythrocyte mean 33.6 30.7-37. [facility] - corpuscular g/dL 3 Good hemoglobin [facility] concentration [facility] [Mass/volume] by Automated count Erythrocyte 12.5 % 11.5-14. [facility] - distribution 0 Good width [Ratio] by [facility] count [facility] Platelets 189 K/uL 130-400 [facility] - [#/volume] in Good Blood by [facility] Platelet mean 9.0 FL 9.2-11.8 Below low normal [facility] - volume [Entitic Good volume] in Blood [facility] by Automated Hospital count Nucleated 0.0 PER 0 [facility] - erythrocytes/100 100 WBC Good leukocytes [facility] [Ratio] in Blood Hospital Nucleated 0.00 0.0-0.01 [facility] - erythrocytes K/uL Good [#/volume] in [facility] Segmented 59 % 48.0-72. [facility] - neutrophils/100 0 Good leukocytes in [facility] Lymphocytes/100 29 % 18.0-40. [facility] - leukocytes in 0 [facility] Monocytes/100 7 % 2.0-12.0 [facility] - leukocytes in [facility] Eosinophils/100 5 % 0.0-7.0 [facility] - leukocytes in [facility] Basophils/100 1 % 0.0-3.0 [facility] - leukocytes in [facility] Immature 0 % 0-0.5 [facility] - granulocytes/100 Good leukocytes in [facility] Blood by Hospital Automated count Segmented 4.6 K/UL 2.3-7.6 [facility] - neutrophils Good [#/volume] in [facility] Lymphocytes 2.2 K/UL 0.9-4.2 [facility] - [#/volume] in [facility] Monocytes 0.5 K/UL 0.1-1.7 [facility] - [#/volume] in [facility] Eosinophils 0.4 K/UL 0.0-1.0 [facility] - [#/volume] in [facility] Basophils 0.1 K/UL 0.0-0.4 [facility] - [#/volume] in [facility] Immature 0.0 K/UL 0.0-0.17 [facility] - granulocytes Good [#/volume] in [facility] Blood by Hospital Automated count Differential [facility] - cell count Good method [facility] Procedure Social History Code Duration Value Status Description Data Source(s ) Alcohol intake 01/08/2020 Current completed Current [place] 12:00:00 AM EDT non-drinker non-drinker of [facility] of alcohol alcohol (finding) [employer] (finding) Tobacco use and 01/08/2020 Never used completed Never used [place] [facility] exposure 12:00:00 AM EDT [employer] Smoking 01/08/2020 Never smoker completed Never smoker [place] 12:00:00 AM EDT [employer] Alcohol intake 12/25/2019 Current completed Current [place] 12:00:00 AM EDT non-drinker non-drinker of [employer] of alcohol alcohol (finding) [employer] (finding) Tobacco use and 12/25/2019 Never used completed Never used [facility] exposure 12:00:00 AM EDT [employer] Smoking 12/25/2019 Never smoker completed Never smoker [place] 12:00:00 AM EDT [employer] Alcohol intake 12/12/2019 Current completed Current [place] 12:00:00 AM EDT non-drinker non-drinker of [employer] alcohol alcohol (finding) [employer] (finding) Smoking 12/12/2019 Never smoker completed Never smoker [place] 12:00:00 AM EDT [employer] Alcohol intake 12/05/2019 Current completed Current [place] 12:00:00 AM EDT non-drinker non-drinker of [employer] alcohol alcohol (finding) [employer] (finding) Tobacco use and 12/05/2019 Never used completed Never used [facility] exposure 12:00:00 AM EDT [employer] Smoking 12/05/2019 Never smoker completed Never smoker [place] 12:00:00 AM EDT [employer] Alcohol intake 12/01/2019 Current completed Current [place] 12:00:00 AM EDT non-drinker non-drinker of [employer] of alcohol alcohol (finding) [employer] (finding) Smoking 12/01/2019 Never smoker completed Never smoker [place] 12:00:00 AM EDT [employer] Alcohol intake 11/14/2019 Current completed Current [place] 12:00:00 AM EDT non-drinker non-drinker of [employer] of alcohol alcohol (finding) [employer] (finding) Smoking 11/14/2019 Never smoker completed Never smoker [place] 12:00:00 AM EDT [employer] Alcohol intake 11/10/2019 Current completed Current [place] 12:00:00 AM EDT non-drinker non-drinker of [employer] alcohol (finding) [employer] (finding) Smoking 11/10/2019 Never smoker completed Never smoker [place] 12:00:00 AM EDT [employer] Alcohol intake 09/06/2019 Current completed Current [place] 12:00:00 AM EDT non-drinker non-drinker of [employer] alcohol alcohol (finding) [employer] (finding) Smoking 09/06/2019 Never smoker completed Never smoker [place] 12:00:00 AM EDT [employer] Alcohol intake 08/16/2019 Current completed Current [place] 12:00:00 AM EST non-drinker non-drinker of [employer] alcohol (finding) [employer] (finding) Smoking 08/16/2019 Never smoker completed Never smoker [place] 12:00:00 AM EST [employer] Alcohol intake 08/10/2019 Current completed Current [place] 12:00:00 AM EST non-drinker non-drinker of [employer] alcohol alcohol (finding) [employer] (finding) Smoking 08/10/2019 Never smoker completed Never smoker [place] 12:00:00 AM EST [employer] Alcohol intake 07/21/2019 Current completed Current [place] 12:00:00 AM EST non-drinker non-drinker of [employer] alcohol (finding) [employer] (finding) Smoking 07/21/2019 Never smoker completed Never smoker [place] 12:00:00 AM EST [employer] Vital Signs ID Date Data Source UNK Name Value Range Interpretation Code Description Data Source(s) Oxygen saturation 98 % 98 % [place] [facility] in Arterial blood [employer] by [employer] Body mass index 48.95 kg/m2 48.95 kg/m2 [place] [facility] (BMI) [Ratio] [employer] Body weight 136.533 kg 136.533 kg [place] [facility] [employer] Body height 167 cm 167 cm [facility] [employer] Respiratory rate 12 /min 12 /min [facility] [employer] Body temperature 36.56 May 36.56 May [facility] [employer] [facility] [employer] Heart rate 102 /min 102 /min [facility] [employer] [facility] [employer] Diastolic blood 60 mm[Hg] 60 mm[Hg] [facility] [employer] Systolic blood 100 mm[Hg] 100 mm[Hg] [place] pressure [employer] Diastolic blood 80 mm[Hg] 80 mm[Hg] [facility] [employer] Systolic blood 122 mm[Hg] 122 mm[Hg] [place] pressure [employer] Respiratory rate 20 /min 20 /min [facility] Heart rate 70 /min 70 /min [facility] [facility] Diastolic blood 70 mm[Hg] 70 mm[Hg] [facility] pressure [employer] Systolic blood 124 mm[Hg] 124 mm[Hg] [place] pressure [employer] Respiratory rate 18 /min 18 /min [facility] Body temperature 36.56 May 36.56 May [facility] [employer] Heart rate 88 /min 88 /min [employer] Diastolic blood 86 mm[Hg] 86 mm[Hg] [facility] pressure [employer] Systolic blood 110 mm[Hg] 110 mm[Hg] [place] pressure [employer] Oxygen saturation 98 % 98 % [facility] in Arterial blood [facility] [employer] Body mass index 47.98 kg/m2 47.98 kg/m2 [facility] (BMI) [Ratio] [facility] Body weight 133.811 kg 133.811 kg Bon [employer] Body height 167 cm 167 cm Bon [employer] Respiratory rate 12 /min 12 /min [facility] Body temperature 36.67 May 36.67 May [facility] Heart rate 100 /min 100 /min [employer] Diastolic blood 66 mm[Hg] 66 mm[Hg] [facility] pressure [employer] Systolic blood 102 mm[Hg] 102 mm[Hg] [place] pressure [employer] Respiratory rate 20 /min 20 /min [facility] Heart rate 70 /min 70 /min [facility] Diastolic blood 68 mm[Hg] 68 mm[Hg] [facility] pressure [employer] [facility] [employer] Systolic blood 120 mm[Hg] 120 mm[Hg] [place] pressure [employer] Respiratory rate 18 /min 18 /min [facility] [facility] [employer] Heart rate 68 /min 68 /min [facility] [employer] [facility] [employer] Diastolic blood 68 mm[Hg] 68 mm[Hg] [facility] pressure [employer] [facility] [employer] Systolic blood 112 mm[Hg] 112 mm[Hg] [place] pressure [employer] [facility] [employer] Respiratory rate 20 /min 20 /min [facility] [employer] [facility] [employer] Body temperature 36.56 May 36.56 May [facility] [employer] Heart rate 92 /min 92 /min [employer] Diastolic blood 70 mm[Hg] 70 mm[Hg] [facility] pressure [employer] [facility] [employer] Systolic blood 110 mm[Hg] 110 mm[Hg] [place] pressure [employer] [facility] [employer] Respiratory rate 20 /min 20 /min [facility] [facility] [employer] Heart rate 68 /min 68 /min [employer] [facility] [employer] Diastolic blood 72 mm[Hg] 72 mm[Hg] [facility] [employer] Systolic blood 112 mm[Hg] 112 mm[Hg] [place] pressure [employer] Respiratory rate 20 /min 20 /min [facility] [employer] [facility] [employer] Heart rate 82 /min 82 /min [employer] Diastolic blood 66 mm[Hg] 66 mm[Hg] [facility] pressure [employer] [facility] [employer] Systolic blood 110 mm[Hg] 110 mm[Hg] [place] pressure [employer] [facility] [employer] Respiratory rate 14 /min 14 /min [facility] [facility] [employer] Body temperature 36.89 May 36.89 May [facility] [facility] [employer] Heart rate 72 /min 72 /min [employer] Diastolic blood 74 mm[Hg] 74 mm[Hg] [facility] pressure [email or web address] Systolic blood 128 mm[Hg] 128 mm[Hg] [place] pressure [employer] Respiratory rate 20 /min 20 /min [facility] [employer] [facility] [employer] Heart rate 68 /min 68 /min [facility] Diastolic blood 64 mm[Hg] 64 mm[Hg] [facility] pressure [employer] Systolic blood 108 mm[Hg] 108 mm[Hg] [place] pressure [employer] Respiratory rate 18 /min 18 /min [facility] Heart rate 80 /min 80 /min [employer] Diastolic blood 70 mm[Hg] 70 mm[Hg] [facility] pressure [employer] Systolic blood 98 mm[Hg] 98 mm[Hg] [place] pressure [employer] Respiratory rate 20 /min 20 /min [facility] Body temperature 36.56 May 36.56 May [facility] Heart rate 78 /min 78 /min [employer] [facility] Diastolic blood 60 mm[Hg] 60 mm[Hg] [facility] pressure [facility] Systolic blood 110 mm[Hg] 110 mm[Hg] [place] pressure [facility] Body mass index 48.95 kg/m2 48.95 kg/m2 [facility] (BMI) [Ratio] ISH [facility] Body weight 136.533 kg 136.533 kg [employer] Respiratory rate 18 /min 18 /min [facility] Body temperature 36.56 May 36.56 May [facility] Heart rate 80 /min 80 /min [employer] Diastolic blood 70 mm[Hg] 70 mm[Hg] [facility] pressure [facility] Systolic blood 128 mm[Hg] 128 mm[Hg] [place] pressure [employer] Oxygen saturation 98 % 98 % [facility] in Arterial blood [employer] [facility] Body mass index 48.95 kg/m2 48.95 kg/m2 [facility] (BMI) [Ratio] ISH Inc Body weight 136.533 kg 136.533 kg [employer] Body height 167 cm 167 cm [employer] Respiratory rate 14 /min 14 /min [facility] [employer] Body temperature 36.44 May 36.44 May [facility] Heart rate 98 /min 98 /min Bon [employer] Diastolic blood 60 mm[Hg] 60 mm[Hg] [facility] pressure [employer] Systolic blood 110 mm[Hg] 110 mm[Hg] [place] pressure [employer] Oxygen saturation 96 % 96 % [facility] in Arterial blood [employer] by [facility] Respiratory rate 18 /min 18 /min [facility] Body temperature 36.72 May 36.72 May [facility] Heart rate 80 /min 80 /min [facility] Diastolic blood 88 mm[Hg] 88 mm[Hg] [facility] pressure [employer] Systolic blood 128 mm[Hg] 128 mm[Hg] [place] pressure [employer] Body mass index 48.97 kg/m2 48.97 kg/m2 [facility] (BMI) [Ratio] ISH [facility] Body weight 136.578 kg 136.578 kg [employer] Body height 167 cm 167 cm [employer] Oxygen saturation 98 % 98 % [facility] in Arterial blood [employer] [facility] Body mass index 48.30 kg/m2 48.30 kg/m2 [facility] (BMI) [Ratio] ISH Inc Body weight 134.718 kg 134.718 kg [employer] Body height 167 cm 167 cm [employer] Respiratory rate 14 /min 14 /min [facility] [employer] Body temperature 37.33 May 37.33 May [facility] Heart rate 100 /min 100 /min [employer] Diastolic blood 68 mm[Hg] 68 mm[Hg] [facility] pressure [facility] Systolic blood 118 mm[Hg] 118 mm[Hg] [place] pressure [employer] Oxygen saturation 98 % 98 % [facility] in Arterial blood [employer] [facility] Body mass index 47.49 kg/m2 47.49 kg/m2 [facility] (BMI) [Ratio] ISH Inc Body weight 132.45 kg 132.45 kg [employer] Body height 167 cm 167 cm [facility] Respiratory rate 12 /min 12 /min [facility] [facility] [employer] Body temperature 36.44 May 36.44 May [facility] [facility] Heart rate 88 /min 88 /min [facility] [employer] [facility] Diastolic blood 70 mm[Hg] 70 mm[Hg] [facility] pressure [employer] [facility] [employer] Systolic blood 102 mm[Hg] 102 mm[Hg] [place] [facility] pressure [employer] [facility] [employer] Oxygen saturation 92 % 92 % [facility] in Arterial blood [facility] by [facility]ulse [facility] Body mass index 45.86 kg/m2 45.86 kg/m2 [facility] (BMI) [Ratio] [employer] Body weight 133.811 kg 133.811 kg [employer] Body height 170.8 cm 170.8 cm [employer] Respiratory rate 12 /min 12 /min [facility] [employer] [facility] [employer] Body temperature 36.67 May 36.67 May [facility] [facility] Heart rate 88 /min 88 /min [employer] [facility] [employer] Diastolic blood 80 mm[Hg] 80 mm[Hg] [facility] pressure [facility] [facility] [employer] Systolic blood 120 mm[Hg] 120 mm[Hg] [place] [facility] pressure [employer] [facility] [employer] Oxygen saturation 95 % 95 % [facility] in Arterial blood [facility] by Pulse [facility]etry [facility] Respiratory rate 18 /min 18 /min [facility] [employer] [facility] [employer] Body temperature 36.44 May 36.44 May [facility] [employer] [facility] [employer] Heart rate 100 /min 100 /min [employer] Diastolic blood 80 mm[Hg] 80 mm[Hg] [facility] pressure [employer] [facility] [employer] Systolic blood 123 mm[Hg] 123 mm[Hg] [place] pressure [employer] [facility] [employer] Body mass index 46.99 kg/m2 46.99 kg/m2 [facility] (BMI) [Ratio] ISH Inc Body weight 136.079 kg 136.079 kg Bon [employer] Body height 170.2 cm 170.2 cm [employer] Oxygen saturation 96 % 96 % [facility] in Arterial blood [facility] Body mass index 45.55 kg/m2 45.55 kg/m2 [facility] (BMI) [Ratio] ISH Inc Body weight 132.904 kg 132.904 kg Bon [employer] Body height 170.8 cm 170.8 cm [facility] [employer] Respiratory rate 14 /min 14 /min [facility] [employer] [facility] [employer] Body temperature 35.89 May 35.89 May [facility] [employer] [facility] Heart rate 96 /min 96 /min [employer] Diastolic blood 78 mm[Hg] 78 mm[Hg] [facility] [employer] Systolic blood 116 mm[Hg] 116 mm[Hg] [place] [facility] pressure [employer] Oxygen saturation 92 % 92 % [facility] in Arterial blood [facility] [employer] [facility]ulse [facility] Respiratory rate 15 /min 15 /min [facility] Heart rate 96 /min 96 /min [employer] Diastolic blood 86 mm[Hg] 86 mm[Hg] [facility] pressure [facility] [employer] Systolic blood 121 mm[Hg] 121 mm[Hg] [place] [facility] pressure [employer] Body mass index 40.18 kg/m2 40.18 kg/m2 [facility] (BMI) [Ratio] ISH [facility] Body weight 127.007 kg 127.007 kg [facility] [employer] Body height 177.8 cm 177.8 cm [facility] [employer] Body temperature 36.72 May 36.72 May [facility] [employer] [facility] [employer] Body temperature 36.33 May 36.33 May [facility] Oxygen saturation 96 % 96 % [facility] in Arterial blood [facility]ulse [facility] Respiratory rate 21 /min 21 /min [facility] [employer] [facility] [employer] Heart rate 85 /min 85 /min Bon [employer] Diastolic blood 88 mm[Hg] 88 mm[Hg] [facility] pressure [employer] [facility] [employer] Systolic blood 155 mm[Hg] 155 mm[Hg] [place] pressure [facility] Body mass index 40.18 kg/m2 40.18 kg/m2 [facility] (BMI) [Ratio] ISH Inc Body weight 127.007 kg 127.007 kg Bon [employer] Body height 177.8 cm 177.8 cm [facility] [employer] Oxygen saturation 98 % 98 % [facility] in Arterial blood [employer] [facility] [employer] Body mass index 44.66 kg/m2 44.66 kg/m2 [facility] (BMI) [Ratio] [facility] Body weight 128.368 kg 128.368 kg Bon [employer] Body height 169.5 cm 169.5 cm [facility] [employer] Respiratory rate 12 /min 12 /min [facility] [employer] Body temperature 36.28 May 36.28 May [facility] Heart rate 68 /min 68 /min [employer] Diastolic blood 80 mm[Hg] 80 mm[Hg] [facility] pressure [facility] Systolic blood 122 mm[Hg] 122 mm[Hg] [place] pressure [facility] Patient Treatment Plan of Care Planned Activity Planned Date Details Description Data Source (s) Propranolol Hydrochloride 01/08/2020 [facility] 10 MG Oral Tablet 12:00:00 AM [employer] [facility] Clonazepam 0.5 MG Oral 12/25/2019 [facility] Tablet 12:00:00 AM [employer] [facility] Ibuprofen 200 MG Oral 12/22/2019 [facility] Tablet 12:00:00 AM [email or web address] olanzapine 5 MG Oral Tablet 12/09/2019 [facility] 09:00:00 AM EDT [employer] [facility] Olmesartan medoxomil 20 MG 12/09/2019 [facility] Oral Tablet 12:00:00 AM [employer] [facility] olanzapine 5 MG Oral Tablet 12/09/2019 [facility] 12:00:00 AM [facility] Losartan Potassium 50 MG 12/09/2019 [facility] Oral Tablet 12:00:00 AM EDT [employer] [facility] Clonazepam 0.5 MG Oral 12/08/2019 [facility] Tablet 12:00:00 AM [facility] Risperidone 2 MG Oral 12/04/2019 [facility] Tablet 12:00:00 AM EDT [facility] [place] Carbonate 300 MG 11/30/2019 [facility] [...] Bela Release Oral Tablet 12:00:00 AM EDT [facility] Bisacodyl 5 MG Delayed 10/31/2019 [facility] Release Oral Tablet 01:50:17 PM EDT [facility] Acetaminophen 325 MG Oral 10/29/2019 Francisco Javier [facility] Tablet 02:44:40 PM EDT [facility] sodium chloride (NS) flush 10/29/2019 [facility] 5-40 mL 11:01:53 AM EDT [facility] 24 HR Bupropion 10/17/2019 [facility] Hydrochloride 150 MG 12:00:00 AM EDT [facility] Extended Release Oral Tablet 24 HR Bupropion 10/17/2019 [facility] Hydrochloride 300 MG 12:00:00 AM EDT [employer] [facility] Extended Release Oral Tablet Vraylar 3 mg capsule 09/03/2019 [facility] [place] 12:00:00 AM EDT [facility] Amitriptyline Hydrochloride 08/20/2019 [facility] 150 MG Oral Tablet 12:00:00 AM EST [facility] [place] Carbonate 150 MG 08/16/2019 [facility] Oral Capsule 12:00:00 AM EST [facility] Prednisone 50 MG Oral 08/16/2019 [facility] Tablet 12:00:00 AM EST [employer] Cyclobenzaprine 07/21/2019 [facility] hydrochloride 10 MG Oral 12:00:00 AM EST [employer] [facility] Tablet Acetaminophen 325 MG / 07/21/2019 [facility] Oxycodone Hydrochloride 5 12:00:00 AM EST [employer] [facility] MG Oral Tablet VRAYLAR 6 mg capsule 07/07/2019 [facility] 12:00:00 AM EST [employer] [facility] [facility] valacyclovir 1000 MG Oral 07/17/2018 Francisco Javier n SecSMRxT Bela Tablet 12:00:00 AM EST [facility] Clonazepam 2 MG Oral Tablet Bon [facility] cariprazine (Vraylar) 6 mg [facility] 24 HR Bupropion [facility] Hydrochlor[facility] 300 MG [facility] Extended Release Oral Tablet fluoxetine HCl (PROZAC PO) B on [facility] ziprasidone 80 MG Oral Bon [facility]
[2020-04-12 13:51] VITALS: BMI 47.4
[2020-04-15] MEDS ORDERED: PROPOFOL 20 ML ONE (08:02)
[2020-04-15] MEDS ORDERED: KETAMINE HCL 500 MG/10 ML VIAL ONE (08:03)
[2020-04-15] MEDS ORDERED: SUCCINYLCHOLINE CHLORIDE 200 MG/10 ML SYRINGE ONE (08:03)
[2020-04-15 09:09] VITALS: TEMP 98.2
[2020-04-15 09:28] VITALS: BP 132/85; PULSE 92
== END 2020-04-15 09:25 | disposition home or self-care (01) ==
LOC: FECT 06:16
PROVIDERS: ATTEND Psychiatry & Neurology Psychiatry
PROC: GZB4ZZZ Other Electroconvulsive Therapy (ICD-10-PCS; principal; 2020-04-15 10:00)
DX: F33.2 Major depressive disorder, recurrent severe without psychotic features (principal)
CPT/HCPCS: 90870; 94760

== ENCOUNTER 2020-04-22 06:19 | Day surgery (SDC) | payer OTHER ==
--- OUTSIDE RECORDS SUMMARY | 2020-04-22 06:25 | XMS ---
:1970 Author Organization [facility] Care Team Providers Name Role Phone RITIKA [...] is protected by Article 27-F of the [place] State Public Health law. If you continue you may haveaccess to information: Regarding HIV / AIDS; Provided by facilities licensed or operated by the [facility] Office of Mental Health; or Provided by the [facility] Office for People With Developmental Disabilities. If such information is present, then the following [facility] mandated warning applies: This information has been [...] law may result in a fine or nursing home sentence or both. A general authorization for the release of medical or other information is NOT sufficient authorization for further disclosure. Encounters Encounter Providers Location Date Indications Data Source(s ) Outpatient 01/08/2020 03:30:00 [facility]a PM EDT - 01/12/2020 [facility] 10:23:35 AM EDT Patient discharged. Attender: MARIYA CATHERINE 01/01/2020 12:00:00 AM [place] [facility] Attender: MAURICIO 12/30/2019 12:00:00 AM [facility] Attender: MARIYA CATHERINE 12/29/2019 12:00:00 AM [facility] 12/25/2019 04:00:00 PM [facility] 06[facility]40 [facility] PM EDT Patient discharged. OL 12/25/2019 12:00:00 AM [facility] - 12/25/2019 Hospital 11:59:00 PM EDT Attender: MARIYA 12/25/2019 12:00:00 AM [facility] Attender: SUSI LONGO 12/25/2019 12:00:00 AM [facility] Attender: MAURICIO 12/24/2019 12:00:00 AM [facility] Attender: MARIYA 12/22/2019 12:00:00 AM [facility] Attender: SUSI LONGO 12/22/2019 12:00:00 AM Bon [employer] [facility] Attender: MAURICIO 12/19/2019 12:00:00 AM [facility] Attender: MARIYA 12/18/2019 12:00:00 AM [facility] Attender: GLADIS FUNEZ 12/18/2019 12:00:00 AM Bon [facility] Attender: SUSI LONGO 12/17/2019 12:00:00 AM [facility] Attender: MAURICIO 12/16/2019 12:00:00 AM Bon [facility]ender: MARIYA 12/15/2019 12:00:00 AM [facility] Attender: XANDER COLBERT 12/13/2019 12:00:00 AM Bon [facility] Outpatient 12/12/2019 12:00:00 PM Francisco Javier n [facility] EDT - 12/12/2019 [facility] 01:20:23 PM EDT Patient discharged. Attender: ROSSI 12/08/2019 05[facility]55[facility] - 01[facility]02/2020 [facility] 12:00:00 AM EDT System In c Inpatient Admitter: RITIKA 12/05/2019 12:00:00 General We akness NUPUR [facility] COREY AM EDT - 12/08/2019 [facility] 03:44:00 PM EDT General Weakness Patient discharged. Outpatient 12/05/2019 12:00:00 AM EDT [facility] Outpatient 12/01/2019 03:45:00 PM EDT - [facility] 12/01/2019 05:01:16 PM EDT Inc Patient discharged. Outpatient 11/14/2019 01:00:00 PM EDT - [facility] 11/18/2019 11:56:43 AM EDT System Inc Patient discharged. Outpatient 11/10/2019 09:00:00 AM EDT - [facility] 11/10/2019 04:44:05 PM EDT System Inc Patient discharged. Inpatient Admitter: RITIKA CANAS 10/29/2019 12:00:00 AM let hargic [facility] EDT - 11/03/2019 [facility] 04:02:00 PM EDT lethargic Patient discharged. Outpatient 09/15/2019 08:22:58 AM EDT [facility] - 09/15/2019 11:59:00 PM Hospital EDT Outpatient 09/10/2019 04:00:00 PM EDT [facility] Outpatient 09/04/2019 03:15:00 PM [facility]T [facility] 08/19/2019 07:31:00 AM EST [facility] ([facility]) Outpatient 08/18/2019 06:35:00 AM EST [facility] Outpatient 08/17/2019 07:16:00 AM EST [facility] ([facility]) Emergency 08/16/2019 12:00:00 AM EST Shortness of Breath [facility] - 08/16/2019 10:45:00 PM Hospital EST Shortness of Breath Patient discharged. Outpatient 08/11/2019 12:05:00 AM EST [facility] Emergency 08/10/2019 12:00:00 AM EST - Chest P ain [facility] 08/11/2019 01:42:00 AM EST Hospital Chest Pain Patient discharged. Outpatient 07/21/2019 04:15:00 PM EST - [employer] [facility] 07/22/2019 10:51:43 AM EST System Inc Patient discharged. Immunizations Vaccine Date Status Description Data Source(s) New in 2012. 09/04/2019 completed Influenza Vaccine 09/04/2019 [facility]IV[facility] 12:00:00 AM EDT (Quad) [facility] [employer] [facility] Medications Medication Brand Start Product Dose Route Administrative Pharmacy [facility] Indications Reaction Description Data Name Date [...] Tablet tablet 5 mg EDT dose (after [facility] OLANZapine [facility] (ZyPREXA) modification) S ystem tablet 5 mg on Tue Inc 12/09/19 at 0900, Until Discontinued Medication administered onsite Olmesartan olmesartan 12/09/2019 20 Oral completed h ypertension Take 1 Tab by Bon medoxomil (BENICAR) 12:00:00 AM mg paul th daily [facility] 20 MG Oral 20 mg EDT for 30 days. Bela Tablet tablet Indications: [facility] olmesartan high blood Sys tem (BENICAR) pressure Inc 20 mg tablet hypertension Losartan losartan 12/09/2019 50 Oral active hypertension Take 1 Tab by Bon Potassium (COZAAR) 12:00:00 AM mg mout h daily [facility] 50 MG Oral 50 mg EDT for 30 days. Bela Tablet tablet Indications: [facility] losartan high blood Syste m (COZAAR) [...] Ch arity clonazePAM mg First dose Hea lt (KlonoPIN) (after last Sy stem tablet 0.5 modification) Inc mg on 12/07/19 at 1600, Last dose on Denise 12/11/19 at 0900 Medication administered onsite olanzapine OLANZapine 12/07/2019 2.5 Oral aborted 2.5 mg, Oral, Bon 2.5 MG Oral (ZyPREXA) 02:00:00 PM mg D AILY, [facility] Tablet tablet 2.5 EDT dose on Sun Bela OLANZapine mg 12/07/19 at [facility] (ZyPREXA) 1400, Until Sys tem tablet 2.5 Discontinued I nc mg Medication administered onsite [employer] lithium 12/07/2019 300 Oral active 300 mg , Oral, Bon Carbonate carbonate SR 02:00:00 PM mg 2 TIMES DAILY, [facility] 300 MG (LITHOBID) EDT First dose o n Bela Extended tablet 300 Sun 0 at [facility] Release Oral mg 1400, Until System Tablet Discontinued Inc lithium carbonate SR (LITHOBID) tablet 300 mg Medication administered onsite Losartan losartan 12/07/2019 50 Oral active 50 m g, Oral, Bon Potassium 50 (COZAAR) 01:00:00 PM mg D AILY, [facility] MG Oral tablet 50 EDT dose on Sun Bela Tablet mg 12/07/19 at [facility] losartan 1300, Until Syst em (COZAAR) Discontinued Inc tablet 50 mg Medication administered onsite furosemide 96774-268-63 12/07/2019 20 IntraVENous complete d 20 mg, [...] 12/13/19 at 0900 Medication administered onsite furosemide 62141-767-04 12/06/2019 20 IntraVENous complete d edema 20 [...] il mg Discontinued Medication administered onsite 0.9% 9641-9798-76 12/05/2019 100 IntraVENous aborted 100 mL/hr, at [...] dose, Ch arity sodium 12/05/19 at Hea lth chloride 1121, at 100 Sys tem (MBP/ADV) 50 mL/hr Inc mL MBP Medication administered onsite Risperidone 2 risperiDONE 12/04/2019 2 mg Oral aborted Share d Take 1 Bon MG Oral (RisperDAL) 2 12:00:00 AM psychotic Tab by [facility] Tablet mg tablet EDT disorder mouth Jagruti rity risperiDONE (HCC) daily. Healt h (RisperDAL) 2 System mg tablet Inc Shared psychotic disorder (HCC) [employer] lithium 11/30/2019 aborted Bon Carbonate 300 carbonate [...] (DULCOLAX) 5 Inc mg EC tablet cariprazine [id number] 11/01/2019 6 mg Oral active 6 m [...] Ointment ointment EDT Firs t dose on [facility] hydrocortisone 11/01/19 at [facility] (HYTONE) 2.5 % 1800, Unti l System ointment Discontinued Inc Medication administered onsite Docusate docusate 10/31/2019 200 Oral active 200 mg, Oral, Bon Sodium 100 sodium 02:00:00 PM mg DAILY , [facility] MG Oral (COLACE) EDT dose on Sun C harity Capsule capsule 200 10/31/19 at [facility] docusa mg 1400, Until Syst em sodium Discontinued Inc (COLACE) capsule 200 mg Medication administered onsite Bisacodyl 5 bisacodyL 10/31/2019 5 mg Oral active 5 mg, Oral, Bon MG Delayed (DULCOLAX) 01:50:17 PM D AILY PRN, [facility] Release Oral tablet 5 mg EDT Start sun Bela Tablet 10/31/19 at 1350, He alth bisacodyL Until System (DULCOLAX) Discontinued, Inc tablet 5 mg Constipation Medication administered onsite Haloperidol 5 haloperidoL 10/30/2019 5 mg Oral completed 5 mg, Bon MG Oral Tablet (HALDOL) 09:00:00 PM Oral, [facility] haloperidoL tablet 5 mg EDT ONCE, 1 [facility] (HALDOL) dose, [facility] tablet 5 mg Denise System 10/30/19 [facility] at 2100 Medication administered onsite amitriptyline 10/30/2019 150 mg Oral active 1 50 mg, Oral, Bon (ELAVIL) tablet 09:00:00 PM EV AN BEDTIME, [facility] 150 mg EDT First dose on [facility] ity Denise 10/30/19 at [facility] 2100, Until System I nc Discontinued Medication administered onsite Haloperidol 2 haloperidoL 10/30/2019 2 mg Oral aborted 2 mg, Oral, Bon MG Oral (HALDOL) 08:01:20 PM EVERY 6 [facility] Tablet tablet 2 mg EDT HOURS Ch arity haloperidoL NEEDED, Healt h (HALDOL) Starting Denise Sys tem tablet 2 mg 10/30/19 at [facility] 2000, Until Sun10/31/19 at 2043, Psychosis, Agitation Medication administered onsite [employer] lithium 10/30/2019 300 Oral active 300 mg [...] clonazePAM Denise 10/30/19 at [facility] (KlonoPIN) 1200, Until Sy stem tablet 1 mg Discontinued [facility] Medication administered onsite 0.9% 3589-3959-40 10/29/2019 100 IntraVENous aborted 100 mL/hr, at Bon sodium 02:55:00 PM mL/h 100 mL/hr, [facility] chloride EDT IntraVENous, Jagruti rity infusion CONTINUOUS, Starting Wed System 10/29/19 at [facility] 1455, Until 11/01/19 at 1446 Medication administered onsite 0.4 ML enoxaparin 10/29/2019 40 SubCUTAneous active 40 mg, Bon Enoxaparin (LOVENOX) 02:55:00 PM mg Gallardo bCUTAneous, [facility] sodium 100 injection 40 EDT EVERY 24 Bela MG/ML mg HOURS, First [facility] Prefilled dose on Sun Sys tem Syringe 10/29/19 at [facility] enoxaparin 1455, Until (LOVENOX) Discontinued injection 40 mg Medication administered onsite Acetaminophen acetaminophen 10/29/2019 650 Oral active 650 mg, Oral, Bon 325 MG Oral (TYLENOL) 02:44:40 PM mg E VERY 4 HOURS [facility] Tablet tablet 650 mg EDT NEEDED , Bela acetaminophen Starting We [facility] (TYLENOL) 10[facility]29[facility] mg 1444, Until [facility] Discontinued, Mild Pain, Fever Medication administered onsite sodium 03965-038-41 10/29/2019 mL IntraVENous active 5-40 mL, Bon chloride 02:00:00 PM IntraVENo us, [facility] (NS) flush EDT EVERY 8 Charit y 5-40 mL HOURS, First dose on Wed System 10/29/19 at [facility] 1400, Until Discontinued Medication administered onsite sodium 35323-856-79 10/29/2019 mL IntraVENous active 5-40 mL, Bon [...] XL) 150 mg tablet Vraylar 3 mg 49178-535-37 09/03/2019 6 Oral aborted depre ssion Take [...] EST NOW, 1 Bela chewable tablet dose, [facility] 162 mg 08/16/19 System at 2103 Inc Medication administered onsite famotidine 08/16/2019 20 IntraVENous aborted 20 mg, Bon (PF) (PEPCID) 09:02:00 PM mg Intr aVENous, [facility] 20 mg in 0.9% EST EVERY 12 Ch arity sodium HOURS, First Healt h chloride 10 dose on Sat S ystem mL injection 08/16/19 at I ms 2102, Until Discontinued Medication administered onsite methylPREDNISolone 145648 08/16/2019 125 IntraVENous comple hyun 125 mg, Bon (PF) (Solu-MEDROL) 09:02:00 PM mg IntraVENous, [facility] injection 125 mg EST NOW, 1 d ose, Bela 08/16/19 Health at 2102 System Inc Medication administered onsite 0.9% 7055-0499-95 08/16/2019 1000 IntraVENous completed 1,000 mL, at [...] mg tablet for 3 System days. Inc [employer] lithium 08/16/2019 2 Oral active Take 2 [...] Health tablet 162 mg Sun System 08/10/19 [facility] at 2352 Medication administered onsite Cyclobenzaprine [...] back pain due to trauma VRAYLAR 6 97459-194-93 07/07/2019 6 mg Oral aborted Bipolar Take [...] FOR 10 DAYS Herpes zoster cephalicus cariprazine 238857 6 mg Oral aborted Take 6 m g [facility] (Vraylar) 6 mg by mouth C harity capsule daily. [employer] System [employer] ziprasidone 80 MG ziprasidone 80 mg Oral aborted Take 80 mg [facility] Oral Capsule (GEODON) 80 mg by mouth Bela ziprasidone capsule two (2) He alth (GEODON) 80 mg times Syst em Inc capsule daily (with meals). fluoxetine HCl 60 mg Oral aborted Take 6 0 mg [facility] (PROZAC PO) by mouth Moira ity daily. Health System coComment Clonazepam 2 MG clonazePAM 1 mg Oral [...] libertarian's [place] Inform ation relationship to boland [facility] [id number] SP [id number] [facility] [id number] [facility] [id number] SP [id number] [facility] [id number] [facility] [id number] [facility] HEALTH PLAN Commerical [id number] [facility] [id number] 900 HEALTH PLAN [facility] [id number] [facility] [id number] 900 HEALTH PLAN POLO [id number] POLO [id number] [employer] PPO [id number] [facility] PPO [id number] [place] 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 [id number] COMPENSATION [facility] HEALTH PLAN O [id number] 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 [id number] COMPENSATION [facility] [id number] GENERIC [phone] [id number] [phone] [facility] [id number] PLAN [facility] GENERIC Commerical [id number] [facility] PPO [id number] PLAN [facility] [id number] PLAN 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 [id number] COMPENSATION [facility] [id number] [facility] HEALTH PLAN PPO [id number] [facility] Problems, Conditions, and Diagnoses Code Display Name Description Problem Type Effective Data Dates Source(s) T88.7XXA Lph-yieu-cfbxtwv Lzl-xzri-fobovbz [id number] 12/05/2019 Francisco Javier n [facility] adverse reaction to adverse reaction to 12:00:0 0 AM Bela medication medication [facility] [employer] [facility] Inc T50.905A Adverse drug Adverse drug [id number] 12/05/2019 Mobile s reaction, initial reaction, initial 12:00:00 AM [facility] encounter encounter [facility] [employer] System [employer] G93.40 Encephalopathy acute Encephalopathy acute [id number] 12/04 [facility] 12:00:00 AM Bela [employer] F31.4 Bipolar disorder with Bipolar disorder [id number] 10/29/19 20 [facility] severe depression with severe 12:00:00 AM [facility] depression [employer] [place] [employer] E55.9 Vitamin D deficiency Vitamin D deficiency 18628472 09/03 [facility] 12:00:00 AM Bela [email or web address] F41.8 Mixed anxiety and Mixed anxiety and [id number] 09/04/2019 [facility] depressive disorder depressive disorder 12:00:0 0 AM [facility] E66.01 Morbid obesity Morbid obesity [id number] 07/21/2019 Bon Se cours 12:00:00 AM [facility] Z98.84 Status post gastric Status post gastric [id number] 020 [facility] bypass for obesity bypass for obesity 12:00:00 AM [facility] [employer] [facility] F32.9 Depressive disorder Depressive disorder [id number] 020 [facility] 12:00:00 AM [facility] F31.9 Bipolar disorder Bipolar disorder [id number] 07/21/2019 Francisco Javier n [facility] 12:00:00 AM [facility] [employer] [facility] F41.9 Anxiety Anxiety [id number] 07/21/2019 [facility] 12:00:00 AM [facility] [employer] [facility] G25.2 Other specified forms Other specified Diagnosis 0 [facility] of tremor forms of tremor 03:17:29 PM [facility] F31.4 Bipolar disorder, Bipolar disorder, Diagnosis 12/25/2019 [facility] - Good current episode current episode 04:40:00 PM [facility] depressed, severe, depressed, severe, EDT Hospital without psychotic without psychotic features features F41.9 Anxiety disorder, Anxiety disorder, Diagnosis 12/25/2019 [facility] unspecified unspecified 04:04:24 PM [facility] R25.1 Tremor, unspecified Tremor, unspecified Diagnosis [facility] 04:04:24 PM [facility] Z98.84 Bariatric surgery Bariatric surgery Diagnosis 12/25/2019 [facility] status status 04:04:24 PM [facility] T88.7XXA Unspecified adverse Unspecified adverse Diagnosis [facility] - Good effect of drug or effect of drug or 11:10:37 AM Mandaen medicament, initial medicament, initial EDT Hospital encounter encounter G93.40 Encephalopathy, Encephalopathy, Diagnosis 12/05/2019 [facility] - Good unspecified unspecified 11:10:37 AM [facility] Hospital R41.82 Altered mental Altered mental Diagnosis 12/05/2019 [facility] - Good status, unspecified status, unspecified 11:10:3 7 AM [facility] F51.04 Psychophysiologic Psychophysiologic Diagnosis 11/14/2019 [facility] insomnia insomnia 01:22:52 PM [facility] F32.2 Major depressive Major depressive Diagnosis 09/15/2019 BS [facility] - Good disorder, single disorder, single 08:22:58 AM S amaritan episode, severe episode, severe EDT Hosp ital without psychotic without psychotic features features F41.8 Other specified Other specified Diagnosis 09/04/2019 [facility] anxiety disorders anxiety disorders 03:49:01 PM [facility] F32.2 Major depressive Major depressive Diagnosis 09/04/2019 Francisco Javier n [facility] disorder, single disorder, single 03:49:01 PM C harity episode, severe episode, severe EDT Heal th without psychotic without psychotic System Inc features features Z23 Encounter for Encounter for Diagnosis 09/04/2019 [facility] immunization immunization 03:49:01 PM [facility] T78.40XA Allergy, unspecified, Allergy, Diagnosis 08/16/2019 [facility] - Good initial encounter unspecified, initial 08:39:16 PM [facility] R06.00 Dyspnea, unspecified Dyspnea, unspecified Diagnosis 08/10 [facility] - Good 11:27:27 PM [facility] F31.75 Bipolar disorder, in Bipolar disorder, in Diagnosis 07/21 [facility] partial remission, partial remission, 04:40:28 PM [facility] most recent episode most recent episode [facility] Surgeries/Procedures Procedure Description Date Indications Data Source(s) HC HC Routine 12/25/2019 Bipolar 12/25/2019 Bipolar Francisco Javier n LITHIUM LITHIUM 4:41 PM EDT disorder 04:41:00 PM disorde r [facility] with severe EDT with severe [facility] depression depression He alth (HCC) ([facility] System Inc Bipolar disorder with severe depression ([facility]) GLUCOSE, POC GLUCOSE, POC Routine 12/08/2019 12/08/2019 Bon 11:35 AM 11:35:[address] [facility] METABOLIC METABOLIC Routine 12/07/2019 12/07/2019 Bon PANEL, BASIC PANEL, BASIC 4:40 AM EDT 04:40:00 A M [facility] EEG 12-26 HR EEG 12-26 HR Routine 12/06/2019 12/06/2019 Bon W/VIDEO W/VIDEO 10:25 AM 10:25:08 AM [facility] LITHIUM HC LITHIUM Routine 12/06/2019 12/06/2019 Bon 4:25 AM EDT 04:25:00 AM [facility] HC LACTIC ACID HC LACTIC ACID STAT 12/05/2019 020 Bon 7:20 PM EDT 07:20:00 PM [facility] HC AMMONIA HC AMMONIA STAT 12/05/2019 12/05/2019 Bon 7:20 PM EDT 07:20:00 PM [facility] MRI BRAIN WO MRI BRAIN WO STAT 12/05/2019 12/05/2019 Bon CONT CONT 4:50 PM EDT 04:50:12 PM [facility] EEG 12-26 HR EEG 12-26 HR STAT 12/05/2019 12/05/2019 Bon W/VIDEO W/VIDEO 3:19 PM EDT 03:19:24 PM [facility] CULTURE, URINE CULTURE, URINE Routine 12/05/2019 020 Bon 2:45 PM EDT 02:45:00 PM [facility] URINALYSIS W/ URINALYSIS W/ STAT 12/05/2019 0 Bon RFLX RFLX 2:45 PM EDT 02:45:00 PM [facility] MICROSCOPIC MICROSCOPIC [facility] BILIRUBIN, BILIRUBIN, Routine 12/05/2019 12/05/2019 Bon CONFIRM CONFIRM 2:45 PM EDT 02:45:00 PM [facility] HC LACTIC ACID HC LACTIC ACID STAT 12/05/2019 020 Bon 12:40 PM 12:40:00 PM [facility] C[facility] HC CULTURE STAT 12/05/2019 12/05/2019 Bon BLOOD BLOOD 12:38 PM 12:38:00 PM [facility] PROTHROMBIN PROTHROMBIN STAT 12/05/2019 12/05/2019 Bon TIME + INR TIME + INR 12:38 PM 12:38:00 PM [facility] WITH [facility] WITH STAT 12/05/2019 12/05/2019 Bon AUTOMATED DIFF AUTOMATED DIFF 12:38 PM 12:38:00 PM [facility] EDT EDT [facility] HC TROPONIN I HC TROPONIN I STAT 12/05/2019 0 Bon QUANT QUANT 12:38 PM 12:38:00 PM Sec ours EDT EDT [facility] METABOLIC METABOLIC STAT 12/05/2019 12/05/2019 Bon PANEL, PANEL, 12:38 PM 12:38:00 PM Sec ours COMPREHENSIVE COMPREHENSIVE EDT EDT [facility] MAGNESIUM MAGNESIUM STAT 12/05/2019 12/05/2019 Bon 12:38 PM 12:38:00 PM Sec ours EDT EDT [facility] HC LITHIUM HC LITHIUM STAT 12/05/2019 12/05/2019 Bon 12:38 PM 12:38:00 PM Sec ours EDT EDT [facility] CT HEAD WO CT HEAD WO STAT 12/05/2019 12/05/2019 Bon CONT CONT 12:30 PM 12:30:54 PM Sec ours EDT EDT [facility] HC CULTURE HC CULTURE STAT 12/05/2019 12/05/2019 Bon BLOOD BLOOD 12:30 PM 12:30:00 PM Sec ours EDT EDT [facility] XR PELV AP XR PELV AP STAT 12/05/2019 12/05/2019 Bon ONLY ONLY 12:14 PM 12:14:58 PM Sec ours EDT EDT [facility] XR CHEST PORT XR CHEST PORT STAT 12/05/2019 0 Bon 12:14 PM 12:14:51 PM Sec ours EDT EDT [facility] RT--OXYGEN RT--OXYGEN STAT 12/05/2019 12/05/2019 Bon CANNULA CANNULA 11:20 AM 11:20:37 AM Sec ours EDT EDT [facility] EEG DIGITAL EEG DIGITAL Routine 12/05/2019 12/05/2019 Bon ANALYSIS ANALYSIS 11:10 AM 11:10:37 AM S [facility]ours EDT EDT [facility] CBC WITH CBC WITH STAT 10/30/2019 10/30/2019 Bon AUTOMATED DIFF AUTOMATED DIFF 6:40 AM EDT 06:40: 00 AM [facility] EDT [facility] METABOLIC METABOLIC STAT 10/30/2019 10/30/2019 Bon PANEL, BASIC PANEL, BASIC 6:40 AM EDT 06:40:00 A M [facility] EDT [facility] URINALYSIS W/ URINALYSIS W/ STAT 10/29/2019 0 Bon RFLX RFLX 6:34 PM EDT 06:34:00 PM [facility] MICROSCOPIC MICROSCOPIC EDT [facility] XR CHEST PORT XR CHEST PORT STAT 10/29/2019 0 Bon 12:09 PM 12:09:04 PM Sec ours EDT EDT [facility] CT HEAD WO CT HEAD WO STAT 10/29/2019 10/29/2019 Bon CONT CONT 11:47 AM 11:47:42 AM Sec ours EDT EDT [facility] HC GLUCOSE HC GLUCOSE Routine 10/29/2019 10/29/2019 Bon POCT POCT 11:26 AM 11:26:00 AM Sec ours EDT EDT [facility] PROTHROMBIN PROTHROMBIN STAT 10/29/2019 10/29/2019 [facility] TIME + INR TIME + INR 10:45 AM 10:45:00 AM [facility] EDT EDT [facility] CBC WITH CBC WITH STAT 10/29/2019 10/29/2019 [facility] AUTOMATED DIFF AUTOMATED DIFF 10:45 AM 10:45:00 AM [facility] EDT EDT [facility] HC PARTIAL HC PARTIAL STAT 10/29/2019 10/29/2019 [facility] THROMBOPLASTIN THROMBOPLASTIN 10:45 AM 10:45:00 AM [facility] / PTT / PTT EDT EDT [facility] METABOLIC METABOLIC STAT 10/29/2019 10/29/2019 [facility] PANEL, PANEL, 10:45 AM 10:45:00 AM [facility] COMPREHENSIVE COMPREHENSIVE EDT EDT [facility] HC LITHIUM HC LITHIUM STAT 10/29/2019 10/29/2019 [facility] 10:45 AM 10:45:00 AM [facility] EDT EDT [facility] XR SPINE LUMB XR SPINE LUMB [...] n [facility] 9:00 PM EST 02:00:00 AM [facility] [employer] [facility] I nc CBC WITH AUTOMATED CBC WITH STAT 08/16/2019 0 [facility] DIFF AUTOMATED DIFF 9:00 PM EST 02:00:00 AM [facility] [employer] [facility] I nc TROPONIN I TROPONIN I STAT 08/16/2019 08/17/2019 [facility] 9:00 PM EST 02:00:00 AM [facility] [employer] [facility] I nc METABOLIC PANEL, METABOLIC PANEL, STAT 08/16/2019 [facility] COMPREHENSIVE COMPREHENSIVE 9:00 PM EST 02:00:00 AM [facility] [employer] [facility] I nc MAGNESIUM MAGNESIUM STAT 08/16/2019 08/17/2019 [facility] 9:00 PM EST 02:00:00 AM [facility] [employer] [facility] I nc LITHIUM LITHIUM STAT 08/16/2019 08/17/2019 Francisco Javier [facility] 9:00 PM EST 02:00:00 AM [facility] [employer] [facility] I nc INFLUENZA A <td><content ID="[id number]">INFLUENZA A & B 07/26 [facility] AG (RAPID 05:18:00 AM [facility] (RAPID TEST) TEST)</content></td><td>STAT</td><td>08/11/2019 [facility] 12:18 AM EST</td><td></td><td><paragraph Health styleCode="header">Results for this procedure are System in the <content Inc styleCode="[id number]">results section</content>.</paragraph></td> PROTHROMBIN TIME + PROTHROMBIN TIME STAT 08/11/2019 0 08/11/2019 [facility] INR + INR 12:01 AM EST 05:01:00 AM [facility] nc D DIMER D DIMER STAT 08/11/2019 08/11/2019 Francisco [facility]avier [facility] 12:01 AM EST 05:01:00 AM [facility] nc CBC WITH AUTOMATED CBC WITH STAT 08/11/2019 0 [facility] DIFF AUTOMATED DIFF 12:01 AM EST 05:01:00 AM [facility] nc PTT PTT STAT 08/11/2019 08/11/2019 Francisco Javier [facility] 12:01 AM EST 05:01:00 AM [facility] nc TROPONIN I TROPONIN I STAT 08/11/2019 08/11/2019 [facility] 12:01 AM EST 05:01:00 AM [facility] nc METABOLIC PANEL, METABOLIC PANEL, STAT 08/11/2019 [facility] COMPREHENSIVE COMPREHENSIVE 12:01 AM EST 05:01:0 0 AM [facility] nc MAGNESIUM MAGNESIUM STAT 08/11/2019 08/11/2019 [facility] 12:01 AM EST 05:01:00 AM [facility] nc LITHIUM LITHIUM STAT 08/11/2019 08/11/2019 [facility] 12:01 AM EST 05:01:00 AM [facility] nc LACTIC ACID LACTIC ACID STAT 08/11/2019 08/11/2019 [facility] 12:01 AM EST 05:01:00 AM [facility] nc BNP BNP STAT 08/11/2019 08/11/2019 Francisco Javier [facility] 12:01 AM EST 05:01:00 AM [facility] nc RT--OXYGEN CANNULA RT--OXYGEN STAT 08/10/2019 020 [facility] CANNULA 11:51 PM EST 04:51:27 AM [facility] nc EKG, 12 LEAD, EKG, 12 LEAD, STAT 08/10/2019 0 [facility] INITIAL INITIAL 10:14 PM EST 03:14:27 AM [facility] I nc Results ID Date Data Source [id number] 04/16/2020 09:00:00 AM EDT [facility] Name Value Range Interpretation Description Data Sup porting Code Source(s) Document(s ) SARS [facility] coronavirus 2 RNA This lab was ordered by KANG GARY moy [facility] and reported by [facility]. ID Date Data Source [id number] 04/12/2020 09:47:00 AM EDT [facility] Name Value Range Interpretation Description Data Sup porting Code Source(s) Document(s ) SARS [facility] coronavirus 2 RNA This lab was ordered by [facility] GARY moy [facility] and reported by [facility]. ID Date Data Source [id number] 04/09/2020 08:38:00 AM EDT [facility] Name Value Range Interpretation Description Data Sup porting Code Source(s) Document(s ) SARS [facility] coronavirus 2 RNA This lab was ordered by KANG GARY moy [facility] and reported by [facility]. ID Date Data Source [id number] 04/05/2020 09:40:00 AM EDT [facility] Name Value Range Interpretation Description Data Sup porting Code Source(s) Document(s ) SARS [facility] coronavirus 2 RNA This lab was ordered by KANG GARY moy [facility] and reported by [facility]. ID Date Data Source [id number] 04/02/2020 09:00:00 AM EDT [facility] Name Value Range Interpretation Description Data Sup porting Code Source(s) Document(s ) SARS [facility] coronavirus 2 RNA This lab [facility] and reported by [facility]. ID Date Data Source [id number] 03/29/2020 08:58:00 AM EDT [facility] Name Value Range Interpretation Description Data Sup porting Code Source(s) Document(s ) SARS [facility] coronavirus 2 RNA This lab [facility] and reported by [facility]. ID Date Data Source [id number] 03/25/2020 09:42:00 AM EDT [facility] Name Value Range Interpretation Description Data Sup porting Code Source(s) Document(s ) SARS [facility] coronavirus 2 RNA [facility] lab [facility] and reported by [facility]. ID Date Data Source [id number] 03/22/2020 09:00:00 AM EDT [facility] Name Value Range Interpretation Description Data Sup porting Code Source(s) Document(s ) SARS [facility] coronavirus 2 RNA This lab was ordered by [facility] and reported by [facility]. ID Date Data Source [id number] 03/19/2020 10:37:00 AM EDT [facility] Name Value Range Interpretation Description Data Sup porting Code Source(s) Document(s ) SARS [facility] coronavirus 2 RNA This lab was ordered by [facility] and reported by [facility]. ID Date Data Source [id number] 03/15/2020 10:30:00 AM EDT [facility] Name Value Range Interpretation Description Data Sup porting Code Source(s) Document(s ) SARS [facility] coronavirus 2 RNA This lab was ordered by [facility] and reported by [facility]. ID Date Data Source [id number] 03/12/2020 12:00:00 PM EDT [facility] Name Value Range Interpretation Description Data Sup porting Code Source(s) Document(s ) SARS [facility] coronavirus 2 RNA This lab was ordered by [facility] and reported by [facility]. ID Date Data Source [id number] 03/08/2020 10:18:00 AM EDT [facility] Name Value Range Interpretation Description Data Sup porting Code Source(s) Document(s ) SARS [facility] coronavirus 2 RNA This lab was ordered by [facility] and reported by [facility]. ID Date Data Source [id number] 03/04/2020 09:50:00 AM EDT [facility] Name Value Range Interpretation Description Data Sup porting Code Source(s) Document(s ) SARS [facility] coronavirus 2 RNA This lab was ordered by [facility] and reported by [facility]. ID Date Data Source [id number] 03/02/2020 12:15:00 PM EDT [facility] Name Value Range Interpretation Description Data Sup porting Code Source(s) Document(s ) SARS [facility] coronavirus 2 RNA This lab was ordered by [facility] and reported by [facility]. ID Date Data Source [id number] 02/27/2020 09:15:00 AM EDT [facility] Name Value Range Interpretation Description Data Sup porting Code Source(s) Document(s ) SARS [facility] coronavirus 2 RNA This lab was ordered by [facility] and reported by [facility]. ID Date Data Source [id number] 02/23/2020 11:40:00 AM EDT [facility] Name Value Range Interpretation Description Data Sup porting Code Source(s) Document(s ) SARS [facility] coronavirus 2 RNA This lab was ordered by [facility] and reported by [facility]. ID Date Data Source [id number] 02/19/2020 09:56:00 AM EDT [facility] Name Value Range Interpretation Description Data Sup porting Code Source(s) Document(s ) SARS [facility] coronavirus 2 RNA This lab was ordered by [facility] and reported by [facility]. ID Date Data Source [id number] 02/16/2020 08:40:00 AM EDT [facility] Name Value Range Interpretation Description Data Sup porting Code Source(s) Document(s ) SARS [facility] coronavirus 2 RNA This lab was ordered by [facility] and reported by [facility]. ID Date Data Source [id number] 02/13/2020 10:05:00 AM EDT [facility] Name Value Range Interpretation Description Data Sup porting Code Source(s) Document(s ) SARS [facility] coronavirus 2 RNA This lab was ordered by [facility] and reported by [facility]. ID Date Data Source [id number] 02/09/2020 10:25:00 AM EDT [facility] Name Value Range Interpretation Description Data Sup porting Code Source(s) Document(s ) SARS [facility] coronavirus 2 RNA This lab was ordered by [facility] and reported by [facility]. ID Date Data Source [id number] 01/25/2020 09:20:00 AM [facility]T [facility] Name Value Range Interpretation Description Data Sup porting Code Source(s) Document(s ) 2019 Novel [facility] Coronavirus RNA Interpretation Unspecified Specimen Qualitative CATA Probe Detection This lab was ordered by [facility] and reported by [facility]. ID Date Data Source [id number] 12/25/2019 05:54:30 PM EDT [facility] Name Value Range Interpretation Description Data Sup porting Code Source(s) Document(s ) Paa-Ko 0.38 0.6-1.2 Below low normal [facility] [Moles/volu MMOL/L [facility]] in Hospital Serum or Plasma ID Date Data Source [id number] 12/23/2019 01:50:56 PM EDT [facility] Discharge SummaryPatient: Maxwell mackey Sex: male DOA: 12/05/2019Date of : 1970 A ge: 49 y.o. LOS: LOS: 3 daysAdmit Date: 12/05/2019Discharge Date: 12/08/2019 Admission Diagnoses: Encephalopathy acute [G93.40];Cux-ubpd-gngmlgg adversereactio n to medication [T88.7XXA];Xnk-zoqg-lpptuyq adverse reaction tomedication [T88.7XXA] Discharge Diagnoses: #1 [...] ICD-10-CM: T50.905AICD -9-CM: E947.9 12/05/2019 - Present Zgu-hhrk-vokejfn adverse reaction to med ication ICD-10-CM: T88.7JAIXZU-6-DO: 995.20 12/05/2019 - Present Bipolar disorder wit [...] E66.01ICD-9-CM: 278.01 07/19/2018 - Present Spells ICD-10-CM: [id number]-1-CS: IMO00 01 04/08/2016 - Present Seizure disorder [...] overseveral days. Psychiatric consultation obtained with r zully the patientcontinue on chronic regimen of antidepressants etc. Patient to be closelyfollowed by this examiner. Patient awaits ECT treatment currently n ot availablesecondary to COVID-19 pandemicConsults: Neurology and Psychiat rySignificant Diagnostic Studies: labs: Microbiology: , radiology: and EEGDisc harge Medications: @DISCHARGEMEDLIST@Activity: Activity as tolerated and PT/OT per Home HealthDiet: Regular DietWound Care: None neededFollo w-up:to follow in office in one weekGeaustin Caans MD Name Value Range Interpretation Code Description Data Melani rce(s) Supporting Document(s ) ID Date Data Source [id number] 12/09/2019 02:14:04 PM EDT [facility] referral made. Walker order faxed t o [facility].LUIS MIGUELWY, [facility] and [employer] do NOT acc ept pts insurance.Faxed to Moriah at [facility] at FAX [phone]. She reports they ne ed to get authfor walker. Have instucted pt to buy own walker IF not authorized.He i s agreeable to buying walker if needs to.Care Management InterventionsPCP Verified by CM: YesTransition of Care Consult (CM Consult): [facility] Home Car e: YesCurrent Support Network: Own Home, Lives with SpouseThe Patient and/or Prachi ent [employer] Smith was Provided with a Choice of Providerand Agrees with the Discharge Plan?: YesFreedom of Choice List was Provided with Basic Dialogue that Suppor ts thePatient's Individualized Plan of Care/Goals, Treatment Preferences and Sh aresthe Quality Data Associated with the Providers?: YesVeteran Resource Informat ion Provided?: RefusedDischarge LocationDischarge Placement: Home with [facility] BY [facility])Pt is discharged [...] Supporting Document(s ) ID Date Data Source [id number] 12/08/2019 03:06:17 PM EDT [facility] I have reviewed discharge instructions [...] Supporting Document(s ) ID Date Data Source [id number] 12/08/2019 03:02:56 PM EDT [facility] Per your note, pt with acute encephalopa thy and toxic Serum Paa-Ko level.Please specify the type of encephalopathy in yo ur progress notes: Toxic encephalopathy due to lithium Metabolic encephalopathy due to Other cause (please specify) Clinically unable to determine UnknownPLEASE DOCUM ENT ANY ADDITIONAL DIAGNOSES AND/OR SPECIFICITY IN THE PROGRESSNOTES AND/OR DISCHARGE SUMMARY. Name Value Range Interpretation Code Description Data Melani rce(s) Supporting Document(s ) ID Date Data Source [id number] 12/08/2019 02:40:45 PM EDT [facility] Problem: SuicideGoal: *STG: Remains safe in hospital12/08/20190 by Ru Mosher: Resolved/Met12/08/20191438 by Ru Mosher: Progressing Towards GoalGoal: *STG: Seeks staff when feeling s of self harm or harm towards others arise12/08/20190 by Ru Mosher : Resolved/Met12/08/2019 143 by Ru Mosher: Progressing Towards GoalGoa l: *STG: Attends activities and groups12/08/20190 by Anup Mosher e: Resolved/Met12/08/2019 1439 by [...] Ru Mosher: Progressing Towards GoalGoal: *LTG: Identifies [place]12/08/2019 1440 by Basilio Moshercome: Resolved/Met12/08/2019 1439 by [...] Fall R isk and appropriate interventions in [facility].12/08/2019 1440 by Divya Moshertcome: Resolved/MetNote: Fall Risk [...] Education ActivityGoal: Patient/Family Education12/08/2019 1440 Ru Castaneda: Resolved/Met12/08/2019 143 by Ru Mosher: Progressing T darrel GoalProblem: Pressure Injury - Risk ofGoal: *Prevention of pressure injuryDe scription: Document Harsh Scale and appropriate interventions in [facility] t.12/08/2019 1440 by Ru Mosher: Resolved/MetNote: Pressure [...] Supporting Document(s ) ID Date Data Source [id number] 12/08/2019 02:40:17 PM EDT [facility] Problem: SuicideGoal: *STG: Remains safe [...] Fall R isk and appropriate interventions [facility].Outcome: Progressing Toward s GoalNote: [...] Document Harsh Scale and [facility].Outcome: P rogressing Towards GoalNote: [...] Supporting Document(s ) ID Date Data Source [id number] 12/08/2019 01:18:54 PM EDT [facility] General Daily Progress NoteAdmit Date: Hospital day: .tdSubjective:Psycgm Neuro,and PT assessments reviewed. Patie nt qualifies for discharge. Wifecalled, will bring in clothes. New medical regimen di scussed with the . Willneed Paa-Ko level later this week.Current Facility-Adminis tered MedicationsMedication [...] past 8 hrs: BP Temp Pulse Resp UzF95212/07 0816 - - - - 96 %12/08/19 [...] initial encounter (12/05/2019)Active Problems: Encephalopathy acute (12/05/2019) Cge-lxmz-ysamjgl adve rse reaction to medication (12/05/2019)Plan: day of discharge. Name Value Range Interpretation Code Description Data Melani rce(s) Supporting Document(s ) ID Date Data Source [id number] 12/08/2019 12:09:30 PM EDT [facility] Problem: Mobility Impaired (Adult and [...] y.o. male)Date: 12/08/2019Primary Diagnosis: E ncephalopathy acute [G93.40]Oms-bpzk-thmvpqo adverse reaction to medication [T88.7XXA ]Khc-ckjh-psfywzo adverse reaction to medication [T88.7XXA]Precautions: Fall ASSESSMENT [...] morbidi ty or mortality cardiac cath at [facility] approx 6-8 months ago Other unknown [...] NoneCritical Beh avior:Neurologic State: AlertOrientation Level: Oriented R6Oscavtknh: Appropriate for age attention/concentration;Follows commandsSafety/Judgement: Decreased awar [...] Supporting Document(s ) ID Date Data Source [id number] 12/08/2019 11:48:26 AM EDT [facility] Name Value Range Interpretation Description Data Sup porting Code Source(s) Document(s ) Glucose 132 MG/DL 65-110 Above high normal [facility] - Good [Mass/volume] Mandaen in Blood by Hospital Automated test strip ID Date Data Source [id number] 12/08/2019 10:35:45 AM EDT [facility] S/O Patient has shown improvement. He re ports that medications are helping him.He denies any side effectsHe denies any cecilia cidal thoughtsHe reports that he sees a psychiatrist [facility] continue on [facility] 300 mg bid Paa-Ko level in two days Will increase Zyprexa 5 mg Will follow up as requested Name Value Range Interpretation Code Description Data [facility] rce(s) Supporting Document(s ) ID Date Data Source [id number] 12/08/2019 07:28:52 AM EDT [facility] Bedside and Verbal shift change report g yesseniaen to SUSI Hurley (oncoming nurse) Annalise DE LEON RN (offgoing nurse). Repor t included the followinginformation SBAR, Kardex, MAR and Recent Results. Name Value Range Interpretation Code Description Data [facility] rce(s) Supporting Document(s ) ID Date Data Source [id number] 12/07/2019 08:26:02 PM EDT [facility] Problem: Falls - Risk ofGoal: [...] Name Value Range Interpretation Code Description Data [facility] rce(s) Supporting Document(s ) ID Date Data Source [id number] 12/07/2019 07:05:28 PM EDT [facility] Verbal shift change report given to Chandrakant Cox RN (oncoming nurse) by Steven Villalobos RN (offgoing nurse). Report inc luded the following information SBAR, Kardex,Intake/Output, MAR, Recent Result s and Cardiac Rhythm on telemetry. Name Value Range Interpretation Code Description Data [facility] rce(s) Supporting Document(s ) ID Date Data Source [id number] 12/07/2019 01:30:56 PM EDT [facility] Trent Jacob MD[address], [address] [place] [address] [email or web address] Progress NotePatient: Maxwell Bray Sex: male DOA: [...] (LOVENOX) injection 40 mg 40 mg SubCUTAneous R72ZPqfgyvxik:Visit VitalsBP 153/85 (BP 1 Location: Left arm, BP Prachi ent Position: At rest)Pulse 96Temp 98.7 F (37.1 C)Resp 20Ht 5' 5.75" (1.67 m)Wt 3 01 lb 1.6 oz (136.6 kg)SpO2 96%BMI 48.97 kg/m Body mass index is 48.97 kg/m .Patient V itals for the past 24 hrs: Temp Pulse Resp BP TjI27712/07/19 1249 - 96 - 153/85 - 0 [...] shoulder M79.2 Seizure disorder (HCC) G40.909 Spells [id number] Severe obesity (HCC) E66.01 Depression F32.9 Anxiety F41.9 Bipolar disorder (HCC) F31.9 Depressive disorder F32.9 Status post g astric bypass for obesity Z98.84 Morbid obesity (HCC) E66.01 Mixed anxiety and depressive disorder F41.8 Vitamin D deficiency E55.9 Bipolar disorder with severe depression ([facility]) F31.4 Encephalopathy acute G93.40 Adverse drug reaction, ini tial encounter T50.905A Hfe-ncwz-renhaic adverse reaction to medication T88.7XXA 49 year [...] Supporting Document(s ) ID Date Data Source [id number] 12/07/2019 01:02:36 PM EDT [facility] Pt seen and discussed with Dr Canas .Pt is tearful flat and denies any suicidal thoughts , has been depressed withlithiu m on hold , No Vraylar and he is unable to get his [facility] And no w will be with [facility] with Dr Womack his lithium level is un therape utic range I will start on lithium , add 2.5mg of zyprexa and lower his klonopin And increase his elavil to 200 mg HSWill get pt followed up with Psychiatry Name Value Range Interpretation Code Description Data [facility] rce(s) Supporting Document(s ) ID Date Data Source [id number] 12/07/2019 12:52:32 PM EDT [facility] Problem: Fluid Volume - Risk of, Imbalan cedGoal: *Balanced intake and outputOutcome: Progressing Towards GoalProblem: Patient Education: Go to Patient Education ActivityGoal: Patient/Family EducationOu tcome: Progressing Towards Goal Name Value Range Interpretation Code Description Data [facility] rce(s) Supporting Document(s ) ID Date Data Source [id number] 12/07/2019 12:45:20 PM EDT [facility] Problem: Falls - Risk ofGoal: [...] Bra den Scale and appropriate interventions [facility].Outcome: Progressing Toward s GoalNote: [...] Supporting Document(s ) ID Date Data Source [id number] 12/07/2019 12:24:47 PM EDT [facility] General Daily Progress NoteAdmit Date: [...] injection 40 mg 40 mg SubCUTA neous O43MDvfcsggwu:Patient Vitals for the past 8 hrs: BP Temp Pulse Resp PhM38812/06 0956 147/86 98.7 F (37.1 C) 95 [...] "No acuteintracranial pathology seen." HISTORY: Limited to jezry t provided by the emergencydepartment at the [...] initial encounter (12/05/2019)Active Problems: Encephalopathy acute (12/05/2019) Rdw-mfwr-dxpghyq adve rse reaction to medication (12/05/2019)Plan:To increase activity, diet,klonopin. Start Losartan Name Value Range Interpretation Code Description Data Melani rce(s) Supporting Document(s ) ID Date Data Source [id number] 12/07/2019 10:13:28 AM EDT [facility] LTM EEG blind hooker DC'd per Dr. Jacob. Name Value Range Interpretation Code Description Data Melani rce(s) Supporting Document(s ) ID Date Data Source [id number] 12/07/2019 10:08:27 AM EDT [facility] Dozier [address]MQIDUKR: MAXWELL BRAYMRN: [id number]: [id number]#: [id number] DATE: 12/05/2019LONG TERM MONITORING VIDEO RESIDENTIAL PROPERTY TAX APPRAISER: Riky Rodriguez HISTORY: The patient is a [...] montages. Digital analysis was performed employing an [employer] neuralnetwork program with parameterization and statistical analysi s. Analysis toolsutilized include compressed spectral array (CSA), XL spike detectors , and XLevent detector. Please note that the reading physician had access to review t hedata throughout the recording and a daily report was generated on each day ofthe r ecording. To eliminate confusion from the electronic medical record, thedaily o rts were consolidated into one full report. Patient managementdecisions were made in real time during the course of the recording as deemedappropriate.BACKGROUND ACTIVITY : The awake record is well organized and symmetric, andconsists primarily of high amplitude beta with admixed alpha frequencies.A 7-7.5 Hz posterior dominan t rhythm is seen, that attenuates with eye opening.There was ejsi-ae-oycmgyyf gener alized background slowing.There was no clear focal slowing.ACTIVATION TECHNIQUES: Ph otic stimulation and hyperventilation were notperformed.SLEEP: During drowsiness, there is mild attenuation and slowing of thebackground rhythm. There was normal sleep seen including symmetric vertexwaves, sleep spindles, and K-complexes.OTHER AC TIVITY: There were no clear epileptiform discharges and no seizures orclinical ev ents recorded.DIGITAL ANALYSIS: Variable spectral pattern without significant lef e-xg-aafmsanbyktsglcg. Spikes were artifact in nature.DECEMBER 06 DAILY [...] the awake and asleep states due to xeqr-bf-ltiovaka diffuse cerebraldysfunc tion that improves to mild over the course of the recording. TRENT JACOB, MDDD: #12/06/2019 10:21:35/SS /[id number]/[id number] #: [id number] / [id number] Name Value Range Interpretation Code Description Data [facility] rce(s) Supporting Document(s ) ID Date Data Source [id number] 12/07/2019 07:45:20 AM EDT [facility] Bedside and Verbal shift change report cristi Dove RN (3Loria) (oncomingnurse) by Vy Green RN (offgoing nurse). Report included the following information SBAR, Kardex, MARand Recent Results. Name Value Range Interpretation Code Description Data [facility] rce(s) Supporting Document(s ) ID Date Data Source [id number] 12/07/2019 07:22:41 AM EDT [facility] All leads and head wrapping intact. Day 2 LTM complete. Awaiting instructions tocontinue for day 3 or DC. Name Value Range Interpretation Code Description [facility] Document([facility] ) ID Date Data Source [id number] 12/07/2019 05:19:11 AM EDT [facility] Name Value Range Interpretation Description Data Sup porting Code Source(s) Document(s ) Sodium 138 136-145 [facility] - Good [Moles/volume] mmol/L Mandaen in Serum or Hospital Plasma Potassium 3.5 3.5-5.1 [facility] - Good [Moles/volume] mmol/L Mandaen in Serum or Hospital Plasma Chloride 106 98-107 [facility] - Good [Moles/volume] mmol/L Mandaen in Serum or Hospital Plasma Carbon 27 21-32 [facility] - Good dioxide, total mmol/L Mandaen [Moles/volume] Hospital in Serum or Plasma Anion gap in 10 10-20 [facility] - Good Serum or mmol/L Mandaen Plasma Hospital Glucose 140 74-106 Above high normal [facility] - Good [Mass/volume] mg/dL Mandaen in Serum or Hospital Plasma Urea nitrogen 19 mg/dL 7-18 Above high normal [facility] - Good [Mass/volume] Mandaen in Serum or Hospital Plasma Creatinine 0.94 0.70-1.3 [facility] - Good [Mass/volume] mg/dL 0 Mandaen in Serum or Hospital Plasma Glomerular >60 [facility] - Good filtration Mandaen rate/1.73 sq M Hospital predicted among blacks [Volume Rate/Area] in Serum or Plasma by Creatinine-bas ed formula (MDRD) Glomerular >60 [facility] - Good filtration Mandaen rate/1.73 sq M Hospital predicted among non-blacks [Volume Rate/Area] in Serum or Plasma by Creatinine-bas ed formula (MDRD) (NOTE)Estimated GFR is calculated using the Modification of Diet in RenalDisease (MDRD) Study equation, reported for both Americans(GFRAA) and non- Americans (GFRNA), and normalized to 1.7 6v3dlij surface area. The physician must decide which [...] Serum 9.1 mg/dL 8.5-10.1 [facility] - Good Mandaen or Plasma Hospital ID Date Data Source [id number] 12/06/2019 08:12:24 PM EDT [facility] Bedside and Verbal shift change report cristi Loyd RN (oncoming nurse) Estephania Wakefield RN (offgoing nurse). Report included the followinginformation SBAR, Kardex, MAR, Recent Results, and Med Rec Status. Name Value Range Interpretation Code Description Data Melani rce(s) Supporting Document(s ) ID Date Data Source [id number] 12/06/2019 04:57:12 PM EDT [facility] General Daily Progress NoteAdmit Date: [...] (LOVENOX) injection 40 mg 40 mg SubCUTAneous Q98RHocglkzra:Patient Vi tals for the past 8 hrs: BP Temp Pulse Resp EeL44712/06/19 1547 (!) 164/100 99.6 F (3 7.6 [...] Time: 12/06/19 4:25 AMResult Value Ref Range Paa-Ko level 1.09 0.6 - 1.2 MMOL/L Xr [...] initial encounter (12/05/2019)Active Problems: Encephalopathy acute (12/05/2019) Dyd-hoeq-ukvmcik adve rse reaction to medication (12/05/2019)Plan:To reduce iv fluids, repeat lasix Name Value Range Interpretation Code Description Data Melani rce(s) Supporting Document(s ) ID Date Data Source [id number] 12/06/2019 04:14:48 PM EDT [facility] Psychiatry Consult NoteSubjective:Landen t: Maxwell [...] of morbidity or mortality cardiac cath at [facility] approx 6-8 months ago Other unknown and unspecified cause of morbidity or mortal ity concussions Other unknown and unspecified cause of morbidity or mortal ity "periodic disorientation" Other unknown and unspecified cause of morbidity or mo rtality anxiety Psychiatric disorder anxiety, depressionPsychiatric History: Patient reported he was receiving [facility] not discuss details.Substance Use History:Social HistorySubstance and Sexu al ActivityAlcohol Use No Frequency: Never Drinks per session: 1 or 2 Binge freque ncy: NeverSocial HistorySubstance and Sexual ActivityDrug Use NoObjective:Vitals/Phys ical Assessment:Patient Vitals for the past 8 hrs: BP Temp Pulse Resp GrZ63412/06/19 081 3 (!) 153/94 100.4 F (38 [...] encounter (12/05/2019)A ctive Problems: Encephalopathy acute (12/05/2019) Vbz-znra-vuvilnv adverse re action to medication (12/05/2019)Plan:No current [...] Supporting Document(s ) ID Date Data Source [id number] 12/06/2019 01:18:16 PM EDT [facility] Trent Jacob MD[address], [address] [place] [address] [phone]i Progress NotePatient: Maxwell Bray Sex: male DOA: 12/05/2019Date of : 1970 Age: 49 y.o. LOS: LOS: 1 daySubjective:Awake, alert, tremulous, no current complaintsEEG w/ mild to mod gen slowREVIEW OF SYSTEMS: NO CP, SOB, N,V,D, F,CCurrent Facility-Administered MedicationsMedication Dose Route Frequen cy 0.9% sodium chloride infusion 125 mL/hr IntraVENous CONTINUOUS enoxaparin (LOVE NOX) injection 40 mg 40 mg SubCUTAneous V23YQunlrvzpm:Visit VitalsBP (!) 153/94 (BP 1 Location: Left arm, BP Patient Position: At rest)Pulse 100Temp 100.4 F (38 C)Resp 18Ht 5' 5.75" (1.67 m)Wt 300 lb (136.1 kg)SpO2 96%BMI 48.79 kg/m Body mass index is 48.79 kg/m .Patient Vitals for the past 24 hrs: Temp Pulse Resp BP ToN38112/06/19 0813 100.4 F (38 C) 100 18 (!) 153/94 96 %12/06/19 0445 99.6 F (37.6 C) - - - -12/06/19 0439 (!) 100.6 F (38.1 C) (!) 103 19 (!) 149/93 97 %12/06/19 00 47 - - - 138/90 -12/05/193 97.5 F (36.4 C) 73 18 - -06/12/20 2057 99.3 F (37.4 C) 98 18 [...] past 24 hours were reviewed both during [facility] daily workflow process and at the time notated as "note time" in [facility]. (It is not time stamped [...] Time: 12/06/19 4:25 AMResult Value Ref Range Paa-Ko level 1.09 0.6 - 1.2 MMOL/LCT Results (most recent):Results from [facility] encounter on 12/05/19CT HEAD WO CONT Narrative [...] images were created on an independent workstation. Utilizingduane l. waters hospitaldoni walsh the examination was performed to optimize [...] of the brain.MRI Results (most recent):Results from [facility] encounter on 12/05/19MRI BRAIN WO CONT Narrative [...] pain of shoulder M79.2 Seizure disorder ([facility]) G40.909 Spells [id number] Severe ob esity ([facility]) E66.01 Depression F32.9 Anxiety F41.9 Bipolar disorder ([facility]) F31.9 Dep ressive disorder F32.9 Status post gastric bypass for obesity Z98.84 Morbid obesit y ([facility]) E66.01 Mixed anxiety and depressive disorder F41.8 Vitamin D deficiency E55 .9 Bipolar disorder with severe depression ([facility]) F31.4 Encephalopathy acute G93.40 Adverse drug reaction, initial encounter T50.905A Zys-dzbd-hbtojeh adverse react ion to medication T88.7XXA49 year [...] Supporting Document(s ) ID Date Data Source [id number] 12/06/2019 11:43:34 AM EDT [facility] LTM study day 1 complete. All leads and head wrapping intact. Day 2 LTM studycommenced and LIVE via WIFI on [facility]. 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. CM attempted toreach hi m via room phone and was unsuccessful. CM spoke with the spouses ,Blanca at . Prior to hospitalization patient was independent of allADL's and ambulati ng prior to this incident. During this most recent episode,patient became lethargic with increasing confusion, weakness, and experiencingtremors in his legs. Karsten faust has a walker and has been out of work sinceDecember 2018 due to his depression .CM discussed advance directives. Patient has no living will and health careproxy. She wishes for him to remain a full code.CM discussed discharge planning. PT will ev aluate for discharge needs. Familyamenable to services. Open for SNF. [facility]. CM ZOË. CM willfoesthela.Patient Information:Patients Preferred Name: Gillian anPatient Arrived Via: [...] MDAdmitting Provider: Ritika lobo MDIN[facility] ASSOCIATE PROFESSOR OF ENGINEERING: N/APayor: P ayor: [facility] HEALTH PLAN / Plan: [facility] /Product Type: [facility] Payor : @[email or web address] acute [G93.40]Xlq-jvry-xyaclws adverse reactio n to medication [T88.7XXA]Hqn-venv-vgupqal adverse reaction to medication [T88.7XXA ]Patient Active Problem ListDiagnosis Code H/O gastric bypass Z98.84 Insomnia G47. 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 Seizure disorder (HCC) G40.909 Spells I [id number] Severe obesity (HCC) E66.01 Depression F32.9 Anxiety F41.9 Bipolar disorder (HCC) F31.9 Depressive disorder F32.9 Status post gastric bypass for ob esity Z98.84 Morbid obesity (HCC) E66.01 Mixed anxiety and depressive disorder F4 1.8 Vitamin D deficiency E55.9 Bipolar disorder with severe depression (HCC) F3 1.4 Encephalopathy acute G93.40 Adverse drug reaction, initial encounter T50.905 A Zao-ycvv-fttlmjv adverse reaction to medication T88.7XXASocial HistorySubstan ce [...] Supporting Document(s ) ID Date Data Source [id number] 12/06/2019 07:40:06 AM EDT [facility] 1938: Patient found in bed [...] Supporting Document(s ) ID Date Data Source [id number] 12/06/2019 05:07:27 AM EDT [facility] Name Value Range Interpretation Description Data Sup porting Code Source(s) Document(s ) Paa-Ko 1.09 0.6-1.2 [facility] - Good [Moles/volu MMOL/L Mandaen me] in Hospital Serum or Plasma ID Date Data Source [id number] 12/05/2019 07:59:09 PM EDT [facility] Name Value Range Interpretation Description Data Sup porting Code Source(s) Document(s ) Ammonia 16 UMOL/L 11-32 [facility] - Good [Moles/volum Mandaen e] in Plasma Hospital ID Date Data Source [id number] 12/05/2019 07:56:38 PM EDT [facility] Name Value Range Interpretation Description Data Sup porting Code Source(s) Document(s ) Lactate 0.9 0.4-2.0 [facility] - Good [Moles/volu MMOL/L Mandaen me] in Hospital Serum or Plasma ID Date Data Source [id number] 12/05/2019 06:42:57 PM EDT [facility] LTM EEG blind hooker complete. Day 1 LTM comm enced and LIVE via WIFI on [facility] 06/28 Name Value Range Interpretation Code Description Data Melani rce(s) Supporting Document(s ) ID Date Data Source [id number] 12/05/2019 06:07:34 PM EDT [facility] [id number] [facility] [employer] [facility] 4T OR THOPEDICS [address] [facility] [address] [phone] Maxwell Bray (Male) [id number] ES I 3 ED Dispo:ADMIT Chief Complaint: Fall, Fatigue Diagnosis: Altered mental status, unspecified altered mental status type [] Adverse drug reaction, initial encounter [] Encephalopathy acute [] Upf-ebxu-vbkqdwc adverse effect of medication, subsequent encounter [] Bipolar disorder with severe depression (HCC) [] H/O gastric bypass [] Curre nt Providers: Attending: Patsy Manzo; Kristy Otero; Cristi Canas Consulting Provider: Jose Centeno; Cristi Canas; Javier Khan; Cristi Frazier Primary Nurse: BAILEY GambleN: [id number] 5 [phone] [employer] [phone] - [facility] Med[employer] MrnMRN: [id number] [employer] [phone] - [facility] [employer] Age SexDOB 1970 AGE 49 SEX Male Primary Care Provider: Ritika Canas MD Phone: Allergies: (No Known Allergies)Date Reviewed: 12/05/2019Reviewed by: Ritika Canas MD - Review CompleteED Provider Notes: All notesHNO ID: [id number]: Julio Manzo MDService: EMERGENCYAuthor Type: Physici anFiled: [...] of morbidity or mortality cardiac cath at [facility] approx 6-8 months ag o Other unknown and unspecified cause of morbidity or mortality concussions Other unknown and unspecifi ed cause of morbidity or mortality "periodic disorientation" Other unknown and unspecified cause of morbidi ty or mortality anxiety Psychiatric disorder anxiety, depressionPast Surgical History:Procedure Laterality Da te ABDOMEN SURGERY PROC UNLISTED gastric bypass 2010 HX GASTRIC BYPASS roue-en-y HX ORTHOPAEDIC 1985 a arthroscopic knee surgery HX ORTHOPAEDIC 1990 broken footFamily History:Problem Relation Age of Onset D bridgerbekenton Mother Heart Disease MotherSocial HistorySocioeconomic History Marital [...] week Gets together: Once a week Attends islam service: More than 4 times per year [...] visualiz ation of images, tracings, or specimens: yesProcedEaln Alvarado Dennis, MD, reviewed the patient's past history, allergies andhome medications as documented in the nursing chart.Labs:Recent Results (from the past 12 hour(s))EKG, 12 LEAD, INITIAL Collection Time: 12/05/19 11:41 AMResult Value Ref Range Ventricular Rat e 102 BPM Atrial Rate 102 BPM P-R Interval 174 ms QRS Duration 104 ms Q-T Interval 395 ms QTC Calculation (Bez et) 515 ms Calculated P [place] 40 degrees Calculated R [place] 41 degrees Calculated T [place] 147 degrees Diagnosis Sinus tachycardiaProbable left atrial [...] Time: 12/05/19 12:38 PMResult Value Ref Range Paa-Ko level 1 .53 (HH) 0.6 - 1.2 MMOL/LLACTIC ACID Collection Time: 12/05/19 12:40 PMResult Value Ref Range Lactic acid 1.1 0.4 - 2.0 MMOL/LEKG:Sinus tachycardia at 100 BPM, normal axis, nothing acute.Interpreted by Julio Manzo MD11:20 AM telemetry monitor reading shows sinus tachycardia at 100 [...] and is requesting a medical admission.228 PM Betty scussed the patient's case with Dr. Canas (PCP) who will admit thepatient.COVID-19 suspected. Droplet precautions were taken.The patient had a surgical mask on upon entering the room: yesProviWhite, including:Surgical mask: yesN95 mask: yesEye Protection: yesGloves: yesGown: yesPatient was seen during Covi d-19 pandemic which may have affected standardof care.Final Impression/Diagnosis:Encounter Diagnoses ICD-10-CM ICD-9-CM1. Altered mental status, unspecified altered mental status type R41.24689.97Patient c ondition at time of disposition: StableI have reviewed the following home medications:Prior to Admission medi cationsMedication Sig Start Date End Date Taking? Authorizing ProviderrisperiDONE (RisperDAL) 2 mg tab let Take 1 Tab by mouth daily. 12/04/19CoRitika lobo MDamitriptyline (ELAVIL) 100 mg tablet 200 mg. 11/12/19 Provider,HistoricalVraylar 3 mg capsule Take 6 mg by [...] thediagnostic studies, unless otherwise noted.+ED Orde rs [id number] BONE PULLER - ED ONLY [#[id number]] Priority: STAT Class: Hospital Performe d Standing Order Information Remaining Occurrences:0/1 Interval:Continuous Last release d:12/05/2019 Released orders: SunDec 05, 2019 11:20 AM by: JULIO MANZO Type: -> Bedside N [id number] PULSE OXIMETRY CONTINUOUS [#[id number]] Priority: STAT Class: Hospital Performe d Standing Order Information Remaining Occurrences:0/1 Interval:CONTINUOUS Last release d:12/05/2019 Released orders: SunDec 05, 2019 11:20 AM by: JULIO MANZO [id number] PULSE OXIMETRY SPOT CHECK [#[id number]] Priority: STAT Class: Hospital Performed Standing Order Inf ormation Remaining Occurrences:0/1 Interval:ONE TIME Last released:12/05/2019 Release d orders: SunDec 05, 2019 11:20 AM by: JULIO MANZO [id number] OBTAIN OLD EKG [ #[id number]] Priority: Routine Class: Hospital Performed Standing Order Information Remainin g Occurrences:0/1 Interval:ONE TIME Last released:12/05/2019 Released orders : SunDec 05, 2019 11:20 AM by: JULIO MANZO [id number] BONE PULLER - ED ONLY [# [id number]] Priority: STAT Class: Hospital Performed Type: -> Bedside Released on: 12/05/2019 11:20 AM [id number] PULSE OXIMETRY CONTINUOUS [#[id number]] Priority: STAT Class: Hospital Performe d Released on: 12/05/2019 11:20 AM [id number] PULSE OXIMETRY SPOT CHECK [#[id number]] Priori ty: STAT Class: Hospital Performed Released on: 12/05/2019 11:20 AM [id number] OBTAIN OLD EKG [#[id number]] Priority: STAT Class: Hospital Performed Released on: 12/05/2019 11:20 AM [id number] VITAL SIGNS PER UNIT ROUTINE [#[id number]] Priority: STAT Class: Hospital Performed Stand ing Order Information Remaining Occurrences:0/1 Interval:CONTINUOUS Last released :12/05/2019 Released orders: SunDec 05, 2019 2:41 PM by: RITIKA CANAS Comment:More frequent ly if Indicated. [id number] BEDREST, COMPLETE [#[id number]] Priority: STAT Class: H ospital Performed Standing Order Information Remaining Occurrences:0/1 Interval:CONTIN UOUS Last released:12/05/2019 Released orders: SunDec 05, 2019 2:41 PM by: RITIKA CANAS [id number] NOTIFY PROVIDER: VITAL SIGNS CHANGES [#[id number]] Priority: STAT Class: Hospital Performe d Standing [...] Less than 120 ml in 4 hours [id number] APPLY/MAINTAIN SEQUENTIAL COMPRESSIO* [# [id number]] Priority: STAT Class: Hospital Performed Standing Order Information Remaining Occurre nces:0/1 Interval:CONTINUOUS Last released:12/05/2019 Released orders: SunDec 05, 2019 2:41 PM by: RITIKA CANAS [id number] VITAL SIGNS PER UNIT ROUTINE [#[id number]] Priorit y: STAT Class: Hospital Performed Comment:More frequently if Indicated. Released on: 12/05/2019 2 :41 PM [id number] BEDREST, COMPLETE [#[id number]] Priority: STAT Class: Hospital Performe d Released on: 12/05/2019 2:41 PM [id number] NOTIFY PROVIDER: VITAL SIGNS CHANGES [#[id number]] Priority: STAT Class: Hospital Performed Temp -> [...] carmen rs Released on: 12/05/2019 2:41 PM [id number] APPLY/MAINTAIN SEQUENTIAL COMPRESSIO* [#[id number]] P riority: STAT Class: Hospital Performed Released on: 12/05/2019 2:41 PM [id number] RT--OXYGEN CANNULA [#[id number]] Priority: STAT Class: Hospital Performed Standing Order Information Remaining Occurrences:0/1 Interval:CONTINUOUS Last released:12/05/2019 Released o rders: SunDec 05, 2019 11:20 AM by: JULIO MANZO LPM -> 2 Indications for O2? -> CHEST PAIN [id number] RT--OXYGEN CANNULA [#[id number]] Priority: STAT Class: Hospital Performe d LPM -> 2 Indications for O2? -> CHEST PAIN Released on: 12/05/2019 11:20 AM [id number] DIET NPO [#[id number]] Canceled Priority: STAT Class: Hospital Performed Cancele d by RITIKA CANAS on SunDec 05, 2019 2:41 PM Reason: None Comment: Standing Order Information Remaining Occurrences:0/1 Interval:DIET EFFECTIVE NOW Last released:12/05/2019 Release d orders: SunDec 05, 2019 11:20 AM by: JULIO MANZO NPO options: -> With Meds [id number] DIET NPO [#[id number]] Canceled Priority: STAT Class: Hospital Performed Cancele d by RITIKA CANAS on SunDec 05, 2019 2:41 PM Reason: None Comment: NPO options: -> With Meds Released on: 12/05/2019 11:20 AM [id number] DIET NPO [#[id number]] Priority: S TAT Class: Hospital Performed Standing Order Information Remaining Occurrences:0/1 Inter haile:DIET EFFECTIVE NOW Last released:12/05/2019 Released orders: SunDec 05, 2019 2:41 PM by: RITIKA CANAS [id number] DIET NPO [#[id number]] Priority: STAT Class: H ospital Performed Released on: 12/05/2019 2:41 PM [id number] SALINE LOCK IV [#[id number]] Priority: STAT Class: Hospital Performed Standing Order Information Remaining Occurrences:0 /1 Interval:ONE TIME Last released:12/05/2019 Released orders: SunDec 05, 2019 11:20 AM by: JULIO MANZO [id number] SALINE LOCK IV [#[id number]] Priority: STAT Cl ass: Hospital Performed Released on: 12/05/2019 11:20 AM [id number] METABOLIC PANEL, COMPREHENSIVE [# [id number]] Priority: STAT Class: ER Collect Standing Order Information Remaining Occurrences:0 /1 Interval:ONE TIME Last released:12/05/2019 Released orders: SunDec 05, 2019 11:20 AM by: JULIO MANZO [id number] CBC WITH AUTOMATED DIFF [#[id number]] Priority: STAT Cl ass: ER Collect Standing Order Information Remaining Occurrences:0/1 Interval:ONE TI ME Last released:12/05/2019 Released orders: SunDec 05, 2019 11:20 AM by: JULIO MANZO [id number] TROPONIN I [#[id number]] Priority: STAT Class: ER Collect Sta nding Order Information Remaining Occurrences:0/1 Interval:ONE TIME Last released:0 12/05/2019 Released orders: SunDec 05, 2019 11:20 AM by: JULIO MANZO [id number] MAGNESIUM [#[id number]] Priority: STAT Class: ER Collect Standing Order Information Remaining Occurrences:0/1 Interval:ONE TIME Last released:12/05/2019 Released orders : SunDec 05, 2019 11:20 AM by: JULIO MANZO [id number] LACTIC ACID [#[id number]] Priority: STAT Class: ER Collect Standing Order Information Remaining Occurrences:0/2 Interval:NOW THEN EVERY 4 HOURS Last released:12/05/2019 Released orders: SunDec 05, 2019 12:06 PM by: JULIO MANZO SunDec 05, 2019 11:20 AM by: JULIO MANZO [id number] PROTHROMBIN TIME + INR [#[id number]] Priority: STAT Class: ER Collect Standing Order Information Remain ing Occurrences:0/1 Interval:ONE TIME Last released:12/05/2019 Released orders : SunDec 05, 2019 11:20 AM by: JULIO MANZO [id number] URINALYSIS W/ RFLX MICROSCOPIC [# [id number]] Priority: STAT Class: ER Collect Standing Order Information Remaining Occurrences:0 /1 Interval:ONE TIME Last released:12/05/2019 Released orders: SunDec 05, 2019 11:20 AM by: JULIO MANZO [id number] METABOLIC PANEL, COMPREHENSIVE [#[id number]] Priority: STAT Cl ass: ER Collect Specimen Source: Plasma Specimen Collected: 12/05/2019 12:38 PM Resulting Agency: [facility] Test ID: MPL Released on: 12/05/2019 11:20 AM [id number] CBC WITH A UTOMATED DIFF [#[id number]] Priority: STAT Class: ER Collect Specimen Source: Whole Blood S pecimen Collected: 12/05/2019 12:38 PM Resulting Agency: [facility] Test ID: [id number] Released on: 12/05/2019 11:20 AM [id number] TROPONIN I [#[id number]] Prior ity: STAT Class: ER Collect Specimen Source: Plasma Specimen Collected: 12/05/2019 12:38 PM Resultin g Agency: [facility] Test ID: TROIP Released on: 12/05/2019 11:20 AM [id number] MAGNESIUM [#[id number]] Priority: STAT Class: ER Collect Specimen Source : Plasma Specimen Collected: 12/05/2019 12:38 PM Resulting Agency: [facility] Test ID: MGPL Released on: 12/05/2019 11:20 AM [id number] LACTIC ACID [#[id number]] P riority: STAT Class: ER Collect Specimen Source: Plasma Specimen Collected: 12/05/2019 12:40 PM Resultin g Agency: [facility] Test ID: LAC Released on: 12/05/2019 11:20 AM [id number] PROTHR OMBIN TIME + INR [#[id number]] Priority: STAT Class: ER Collect Specimen Source: Plasma Spe cimen Collected: 12/05/2019 12:38 PM Resulting Agency: [facility] Test ID: APTHR R eleased on: 12/05/2019 11:20 AM [id number] URINALYSIS W/ RFLX MICROSCOPIC [#[id number]] Prior ity: STAT Class: ER Collect Specimen Source: Urine Specimen Collected: 12/05/2019 2:45 PM Resultin g Agency: [facility] Test ID: UA Released on: 12/05/2019 11:20 AM [id number] LITHIU M [#[id number]] Priority: STAT Class: ER Collect Standing Order Information Remaining Occurrences:0/1 Interval:ONE TIME Last released:12/05/2019 Released orders : SunDec 05, 2019 11:40 AM by: MECHELLE GAMBLE [id number] LITHIUM [# [id number]] Priority: STAT Class: ER Collect Specimen Source: Serum Specimen Collected: 12/05/2019 12 :38 PM Resulting Agency: [facility] Test ID: LI Released on: 12/05/2019 11:40 AM [id number] LITHIUM [#[id number]] Canceled Priority: STAT Class: ER Collect Canceled by SHIVANI MADSEN IN [place] on SunDec 05, 2019 11:42 AM Reason: Other Comment: Duplicate Standing Order Information Remaining Occurrences:0/1 Interval:ONE TIME Last released:0 12/05/2019 Released orders: SunDec 05, 2019 11:41 AM by: JULIO MANZO [id number] LITHIUM [#[id number]] Canceled Priority: STAT Class: ER Collect Specimen Collected: 12/05/2019 11:45 AM Resulting Agency: [facility] Test ID: LI Canceled by [facility] IN [place] on SunDec 05, 2019 11:42 AM Reason: Other Comment: Duplicate Rele ased on: 12/05/2019 11:41 AM [id number] LACTIC ACID [#[id number]] Priority: STAT Cl ass: ER Collect Resulting Agency: [facility] Test ID: LAC Released on: 12/05/2019 12:06 PM [id number] AMMONIA [#[id number]] Priority: Routine Class: ER Collect Specimen Source: Blood Standing Order Information Remaining Occurrences:0/1 Interval:ONE TI ME Last released:12/05/2019 Released orders: SunDec 05, 2019 3:19 PM by: Javier KHAN [id number] AMMONIA [#[id number]] Priority: STAT Class: ER Collect Spe cimen Source: Blood Resulting Agency: [facility] Test ID: [id number] Released on: 12/05/2019 3:19 PM [id number] BILIRUBIN, CONFIRM [#[id number]] Priority: Routine Class : ER Collect Resulting Agency: [facility] Test ID: ICTO Standing Order Informat ion Remaining Occurrences:0/1 Released orders: SunDec 05, 2019 2:45 PM by: Automatic B atch Process [id number] BILIRUBIN, CONFIRM [#[id number]] Priority: Routine Class : ER Collect Specimen Source: Miscellaneous sample Specimen Collected: 12/05/2019 2:45 PM Resultin g Agency: [facility] Test ID: ICTO Released on: 12/05/2019 2:45 PM [id number] EKG, 12 LEAD, INITIAL [#[id number]] Priority: STAT Class: Hospital Performed Stand ing Order Information Remaining Occurrences:0/1 Interval:ONE TIME Last released:0 12/05/2019 Released orders: SunDec 05, 2019 11:20 AM by: JULIO MANZO Reason for Exam: -> Chest Pain [id number] EKG, 12 LEAD, INITIAL [#[id number]] Priority: STAT Class: H ospital Performed Resulting Agency: [facility] Test ID: [id number] Reason for Exam: -> Chest Pain Releas ed on: 12/05/2019 11:20 AM [id number] XR CHEST PORT [#[id number]] Priority: STAT Clas s: Hospital Performed Standing Order Information Remaining Occurrences:0/1 Interval:ONE TI ME Last released:12/05/2019 Released orders: SunDec 05, 2019 11:20 AM by: JULIO MANZO Reason for Exam -> Chest Pain [id number] CT HEAD WO CONT [#[id number]] Priority: S TAT Class: Hospital Performed Standing Order Information Remaining Occurrences:0/1 Inter haile:ONE TIME Last released:12/05/2019 Released orders: SunDec 05, 2019 11:20 AM by: JULIO MANZO Reason for Exam -> ams [id number] XR PELV AP ONLY [#[id number]] Priority: S TAT Class: Hospital Performed Standing Order Information Remaining Occurrences:0/1 Inter haile:ONE TIME Last released:12/05/2019 Released orders: SunDec 05, 2019 11:20 AM by: JULIO MANZO Reason for Exam -> fall [id number] XR CHEST PORT [#[id number]] Priority: STAT Class: Hospital Performed Specimen Collected: 12/05/2019 12:21 PM Resulting Agency: [facility] Test ID: [id number] Reason for Exam -> Chest Pain Released on: 12/05/2019 11:[id number] HEAD WO CONT [#[id number]] Priority: STAT Class: Hospital Performed Specimen Collected : 12/05/2019 12:43 PM Resulting Agency: [facility] Test ID: [id number] Reason for Exam -> ams R eleased on: 12/05/2019 11:20 AM [id number] XR PELV AP ONLY [#[id number]] Priority: STAT Class: Hospital Performed Specimen Collected: 12/05/2019 12:23 PM Resulting Agency: [facility] Test ID : [id number] Reason for Exam -> fall Released on: 12/05/2019 11:20 AM [id number] MRI BRAIN WO CONT [#[id number]] Priority: STAT Class: Hospital Performed Standing Order Information Remaining Occurrences:0/1 Interval:ONE TIME Last released:12/05/2019 Released orders : SunDec 05, 2019 3:19 PM by: JOSE KHAN Reason for Exam -> ams [id number] MRI BRA IN WO CONT [#[id number]] Priority: STAT Class: Hospital Performed Specimen Collected : 12/05/2019 5:03 PM Resulting Agency: [facility] Test ID: [id number] Reason for Exam -> ams R eleased on: 12/05/2019 3:19 PM [id number] CULTURE, BLOOD [#[id number]] Priority: Routi ne Class: ER Collect Specimen Source: Blood Standing Order Information Remaining Occurrences:0 /1 Interval:ONE TIME Last released:12/05/2019 Released orders: SunDec 05, 2019 11:20 AM by: JULIO [id number] CULTURE, BLOOD [#[id number]] Priority: STAT Cl ass: ER Collect Specimen Source: Blood Standing Order Information Remaining Occurrences:0/1 I nterval:ONE TIME Last released:12/05/2019 Released orders: SunDec 05, 2019 11:20 AM by: JULIO [id number] CULTURE, BLOOD [#[id number]] Priority: STAT Class: E R Collect Specimen Source: Blood Specimen Collected: 12/05/2019 12:38 PM Resulting Agency: [facility] Test ID: HBCS Released on: 12/05/2019 11:20 AM [id number] CULTURE, BLOOD [#[id number]] Priority: STAT Class: ER Collect Specimen Source: Blood Specimen Collected: 12/04 12:30 PM Resulting Agency: [facility] Test ID: HBCS Released on: 12/05/2019 11:20 AM CEFTRIAXONE 1 GRAM IVPB MBP [#[id number]] Priority: STAT Class: Normal An tibiotic Indications -> Sepsis of Unknown Etiology SODIUM CHLORIDE 0.9 % IV [#[id number]] Priority: STAT Class: Normal SODIUM CHLORIDE 0.9 % IV [#[id number]] Priority : STAT Class: Normal ENOXAPARIN 40 MG/0.4 ML SUB-Q SYRINGE [#[id number]] Priority: STAT Class: N ormal ENOXAPARIN 40 MG/0.4 ML SUB-Q SYRINGE [#[id number]] Priority: STAT Class: Normal FUROSEMIDE 10 MG/ML IJ SOLN [#[id number]] Priority: STAT Class: Normal CON53 IP CONSULT TO PS YCHIATRY [#[id number]] Priority: STAT Class: Hospital Performed Standing Order Information Remaining Occurrences:0/1 Interval:ONE TIME Last released:12/05/2019 Released orders : SunDec 05, 2019 11:42 AM by: JULIO MANZO Reason for Consult: -> si Did you call or spea k to the consulting provider? -> No Consult To -> si CON53 IP CONSULT TO PSYCHIATRY [#[id number]] Priority: STAT Class: Hospital Performed Reason for Consult: -> si Did you call or spea k to the consulting provider? -> No Consult To -> si Released on: 12/05/2019 11:42 AM CON62 IP CON SULT TO INTERNAL MEDICINE [#[id number]] Priority: STAT Class: Hospital Performed Standing Order Inf ormation Remaining Occurrences:0/1 Interval:ONE TIME Last released:12/05/2019 Release d orders: SunDec 05, 2019 2:16 PM by: CARLA OTERO Reason for Consult: -> Altered mental st atus, Dr. Canas to admit Did you call or speak to the consulting provider? -> Yes CON62 IP CONSULT TO INTERNAL MEDICINE [#[id number]] Priority: STAT Class: Hospital Performed Reason for Consu lt: -> Altered mental status, Dr. Canas to admit Did you call or speak to the consulting provider? -> Yes Released on: 12/05/2019 2:16 PM CON53 IP CONSULT TO PSYCHIATRY [#[id number]] Priority: STAT Class: Hospital Performed Standing Order Information Remaining Occurrences:0 /1 Interval:ONE TIME Last released:12/05/2019 Released orders: SunDec 05, 2019 2:41 PM by: RITIKA CANAS Reason for Consult: -> adverse med reaction Did you call or speak to t he consulting provider? -> No Consult To -> Dr Aguirre Schedule When? -> TODAY CON9 IP CONSULT TO N EUROLOGY [#[id number]] Priority: STAT Class: Hospital Performed Standing Order Information Remaining Occurrences:0/1 Interval:ONE TIME Last released:12/05/2019 Released orders : SunDec 05, 2019 2:41 PM by: RITIKA CANAS Reason for Consult: -> encephalopathy adverse drug reaction Did you call or speak to the consulting provider? -> No Consult To -> Dr Jacob Schedule When? -> TODAY CON53 IP CONSULT TO PSYCHIATRY [#[id number]] Priority: STAT Class: H ospital Performed Reason for Consult: -> adverse med reaction Did you call or speak to the consulting provider? -> No Consult To -> Dr Aguirre Schedule When? -> TODAY Released on: 12/05/2019 2:41 P M CON9 IP CONSULT TO NEUROLOGY [#[id number]] Priority: STAT Class: Hospital Performe d Reason for Consult: -> encephalopathy adverse drug reaction Did you call or speak to the consulting provider? -> No Consult To -> Dr Jacob Schedule When? -> TODAY Released on: 12/05/2019 2:41 P M [id number] INITIAL PHYSICIAN ORDER: OBSERVATION* [#[id number]] Priority: Routine Class: ADT Pend Trans milvia Standing Order Information Remaining Occurrences:0/1 Interval:ONE TIME Last release d:12/05/2019 Released orders: SunDec 05, 2019 2:00 PM by: LUZ ELENA GATES Patient Class: -> OBS ERVATION Admitting Diagnosis -> Encephalopathy acute Admitting Physician -> CARLA OTERO Attending Physician -> CARLA OTERO [id number] INITIAL PHYSICIAN ORDER: OBSERVATION* [#[id number]] Priority: Routine Class: ADT Pend Transfer Patient Class: -> OBSERVATION Admitting Diagnosis -> Encephalopathy acute Admitting Physician -> CARLA OTERO Attending Physician -> CARLA OTERO Released on: 12/05/2019 2:00 PM [id number] INITIAL PHYSICIAN ORDER: INPATIENT [#[id number]] Joan renner: Routine Class: ADT Pend Transfer [...] o- n- ) Admitting Diagnosis - > Rep-vxyg-wxhyuvs adverse reaction to medication Admitting Physician -> RITIKA CANAS Physician -> RITIKA CANAS Estimated Length of Stay -> 5-7 Midnights Discharge Plan: -> Other (Specify) [id number] INITIAL PHYSICIAN ORDER: INPATIENT [#[id number]] Priority: Routine Class: ADT Pend Tr tejalfer Standing Order Information Remaining Occurrences:0/1 Interval:ONE TIME Last rele ased:12/05/2019 Released orders: SunDec 05, 2019 2:41 PM by: RITKIA CANAS Status: -> INPAT IENT Inpatient Hospitalization [...] i- o- n- ) Admitting Diagnosis -> Use-prtv-uysnucn adverse reaction to medication Admitting Physician -> RITIKA CANAS Attending Physician -> MARY CANAS Estimated Length of Stay -> 5-7 Midnights Discharge Plan: -> Other (Specify) [id number] [facility] PHYSICIAN ORDER: INPATIENT [#[id number]] Priority: Routine Class: ADT Pend Transfer Status: [...] i- o- n- ) Admitting Diagnosis -> Khb-aqei-mxtpdhq adverse reaction to medication Admitting Physician -> RITIKA CANAS Attending Physician -> MARY CANAS Estimated Length of Stay -> 5-7 Midnights Discharge Plan: -> Other (Specify) Released on: 12/05/2019 2:41 PM [id number] INITIAL PHYSICIAN ORDER: INPATIENT [#[id number]] Priority: Routine Class : ADT Pend Transfer [...] o- n- ) Adm itting Diagnosis -> Xkx-qgjl-wpskzch adverse reaction to medication Admitting Physician -> RITIKA CANAS Attending Physician -> RITIKA CANAS Estimated Length of Stay -> 5-7 Midnights Discharge Plan: -> Other (Specify) Released on: 12/05/2019 2:41 PM COD2 FULL CODE [#[id number]] Priority: STAT Class: Hospital Performed Standing Order Information Remaining Occurrences:0 /1 Interval:CONTINUOUS Last released:12/05/2019 Released orders: SunDec 05, 2019 2:41 PM by: RITIKA CANAS COD2 FULL CODE [#[id number]] Priority: STAT Cl ass: Hospital Performed Released on: 12/05/2019 2:41 PM [id number] EEG 12-26 HR W/VIDEO [# [id number]] Priority: Routine Class: Hospital Performed Standing Order Information Remaining Occurre nces:0/1 Interval:ONE TIME Last released:12/05/2019 Released orders: SunDec 04 20 3:19 PM by: JOSE KHAN Reason for Exam: -> ams [id number] EEG 12-26 HR W/VIDEO [#[id number]] Priority: STAT Class: Hospital Performed Resulting Agency: [facility] Test ID: [id number] Reason for Exam: -> ams Released on: 12/05/2019 3:19 Maxwell Corona MR#: [id number] * Rm: 441- 01Ht: 5' 5.75" Wt: 300 lb Code: Full Code Iso:Diagnosis:Encep halopathy acute [G93.40]Allergies: No Known Allergies -------- Current as of: 12/05/191806 NB=New Bag --aspirin (ASPIRIN) tablet 325 mg #[id number] Admin Amount: 1 Tab (1 x 325 mg Tab) Ordered Dose: 325 mg Route: Oral Freq: ONCE Start Date: 12/24/13 No administration times (back 96 hours, ahead 96 hours). ------diphenhydrAMINE (BENADRYL) capsule 50 mg #[id number] Admin Amount: 1 Cap (1 x 50 mg Cap) Ordered Dose: 50 mg Route: Ora l Freq: NOW Start Date: 12/24/13 No administration times (back 96 hours, ahe ad 96 hours). ------diazepam (VALIUM) tablet 5 mg #[id number] Admin Amount: 1 Tab (1 x 5 mg Tab) Ordered Dose: 5 mg Route: Oral Freq: ON CE Start Date: 12/24/13 No administration times (back 96 hours, ahead 96 hours). ------lidocaine (XYLOCAINE) 10 mg/mL (1 %) injection 1-30 mL #[id number] Admin Amount: 1-30 mL Ordered Dose: 1-30 mL Route: IntraDERMal Freq: ONCE Start Date: 12/24/13 No administration times (back 96 hours, ahead 96 hours). ------heparin (PF) 2 units/ml in NS infusion 2,000 Units #[id number] Admin Amount: 1,000 mL = 2,000 Units of 2 Units/mL Ordered Dose: 1,000 mL Ro red cliff: Irrigation Freq: ONCE Start Date: 12/24/13 No administration times (back 96 hours, ahead 96 hours). ------heparinized saline 2 units/mL infusion 1,000 Units #[id number] Admin Amount: 500 mL = 1,000 Units of 2 Units/mL Ordered Dose: 500 mL Ro red cliff: IntraarTERial Freq: ONCE Start Date: 12/24/13 No administration times (back 96 hours, ahead 96 hours). ------0.9% sodium chloride infusion #[id number] Ordered Dose: 75 mL/hr Route: IntraVENous Freq: CONTINUOUS Start Date: 12/24/13 Rate: 75 mL/hr Duration: No administration times (back 96 hours, ahead 96 hours). ------ioversol (OPTIRAY) 320 mg iodine/mL contrast injection 1-100 mL #[id number] Admin Amount: 1-100 mL Ordered Dose: 1-100 mL Route: IntraVENous Freq: RAD O NCE Start Date: 12/24/13 No administration times (back 96 hours, ahead 96 hours).Maxwell Bray MR#: [id number] * Rm: 441-01Ht: 5' 5.75" Wt: 300 lb Cod e: Full Code Iso:Diagnosis:Encephalopathy acute [G93.40]Allergies: No Known Allergies -------- Current as of: 12/05/19 180 NB=New Bag --gadobutrol (GADAVIST) contrast solution 1-10 mL #[id number] Admin Amount: 1-10 mL Ordered Dose: 1-10 mL Route: IntraVENous Freq: RAD O NCE Start Date: 01/13/14 No administration times (back 96 hours, ahead 96 hours). ------sodium chloride (NS) flush 5-10 mL #[id number] Admin Amount: 5-10 mL Ordered Dose: 5-10 mL Route: IntraVENous Freq: RAD ONCE Start Date: 01/13/14 No administration times (back 96 hours, ahead 96 hours). ------sodium chloride (NS) 0.9 % flush #[id number] Ordered Dose: Route: Freq: Start Date: 01/13 No administration times (back 96 hours, ahead 96 hours). ------morphine injection 2 mg #[id number] Admin Amount: 1 mL = 2 mg of 2 mg/mL Ordered Dose: 2 mg Route: IntraVENous Freq: NOW Start Date: 03/13/15 No administration times (back 96 hours, ahe ad 96 hours). ------influenza vaccine (4 yr+)(PF) (FLUCELVAX QUAD) inj ection 0.5*#[id number] Admin Amount: 0.5 mL Ordered Dose: 0.5 mL Route: IntraMUSCular Freq: PRIOR TO DISCHARGE Start Date: 03/30/16 No administration times (back 96 hours, ahead 96 hours). ------oxyCODONE-acetaminophen (PERCOCET) 5-325 mg per tablet 1 Tab #[id number] Admin Amount: 1 Tab Ordered Dose: 1 Tab Route: Oral Freq: NOW Start Date: 09/07/17 No administration times (back 96 hours, ahead 96 hours). ------barium sulfate (READICAT) 2.1 % (w/v), 2.0 % (w /w) oral suspension 9*#[id number] Admin Amount: 900 mL Ordered Dose: 900 mL Route: Oral Delgado q: RAD ONCE Start Date: 10/15/17 No administration times (back 96 hours, ahead 96 hours). ------iopamidol (ISOVUE 300) 61 % contrast injection 100 mL #[id number] Admin Amount: 100 mL Ordered Dose: 100 mL Route: IntraVENous Freq: RAD ONC E Start Date: 10/15/17 No administration times (back 96 hours, ahead 96 hours).Maxwell Bray MR#: [id number] * Rm: 441-01Ht: 5' 5" Wt: 300 lb Code: Full Code Iso:Diagnosis:Encephalopathy acute [G93.40]Allergies: No Known Allergies -------- Current as of: 12/05/19 180 NB=New Bag --risperiDONE (RisperDAL m-tabs) disintegrating tablet 1 mg #[id number] Admin Amount: 1 Tab (1 x 1 mg Tab) Ordered Dose: 1 mg Route: Oral Freq: ONCE Start Date: 12/24/17 No administration times (back 96 hours, ahead 96 hours). ------ALPRAZolam (XANAX) tablet 2 mg #[id number] Admin Amount: 4 Tab (4 x 0.5 mg Tab) Ordered Dose: 2 mg Route: Ora l Freq: NOW Start Date: 12/24/17 No administration times (back 96 hours, ahe ad 96 hours). ------lamoTRIgine (LaMICtal) tablet 100 mg #[id number] Admin Amount: 1 Tab (1 x 100 mg Tab) Ordered Dose: 100 mg Route: Oral Delgado q: ONCE Start Date: 12/24/17 No administration times (back 96 hours, ahead 96 hours). ------OLANZapine (ZyPREXA zydis) disintegrating tablet 5 mg #[id number] Admin Amount: 1 Tab (1 x 5 mg Tab) Ordered Dose: 5 mg Route: Oral Delgado q: ONCE Start Date: 12/25/17 No administration times (back 96 hours, ahead 96 hours). ------LORazepam (ATIVAN) tablet 2 mg #[id number] Admin Amount: 4 Tab (4 x 0.5 mg Tab) Ordered Dose: 2 mg Route: Ora l Freq: NOW Start Date: 12/25/17 No administration times (back 96 hours, e ad 96 hours). ------LORazepam (ATIVAN) injection 1 mg #[id number] Admin Amount: 0.5 mL = 1 mg of 2 mg/mL Ordered Dose: 1 mg Route: Int TrevorENous Freq: NOW Start Date: 12/25/17 No administration times (back 96 hours, e ad 96 hours). ------barium sulfate (EZ PAQUE) 96 % (w/w) contrast suspension 17 6 g #[id number] Admin Amount: 176 g Ordered Dose: 176 g Route: Oral Freq: RAD ONCE Start Date: 08/02/18 No administration times (back 96 hours, ahead 96 hours). ------barium sulfate (EZ PAQUE) 96 % (w/w) contrast s uspension 176 g #[id number] Admin Amount: 176 g Ordered Dose: 176 g Route: Oral Delgado q: RAD ONCE Start Date: 08/02/18 No administration times (back 96 hours, ahead 96 hours).Luisito donovanMaxwell MR#: [id number] * Rm: 441-01Ht: 5' 5.75" Wt: 300 lb Cod e: Full Code Iso:Diagnosis:Encephalopathy acute [G93.40]Allergies: No Known Allergies -------- Current as of: 12/05/191806 NB=New Bag --aspirin chewable tablet 162 mg #[id number] Admin Amount: 2 Tab (2 x 81 mg Tab) Ordered Dose: 162 mg Route: Oral Freq: NOW Start Date: 08/10/19 No administration times (back 96 hours, ahead 96 hours). ------0.9% sodium chloride infusion 1,000 mL #[id number] Admin Amount: 1,000 mL Ordered Dose: 1,000 mL Route: IntraVENous Freq: ONC E Start Date: 08/16/19 Rate: 1,000 mL/hr Duration: No administration ti mes (back 96 hours, ahead 96 hours). ------methylPREDNISolone (PF) (Solu-MEDROL) injection 125 mg #[id number] Admin Amount: 2 mL = 125 mg of 125 mg/2 mL Ordered Dose: 125 mg Route: Int raVENous Freq: NOW Start Date: 08/16/19 No administration times (back 96 hours, ahe ad 96 hours). ------aspirin chewable tablet 162 mg #[id number] Admin Amount: 2 Tab (2 x 81 mg Tab) Ordered Dose: 162 mg Route: Oral Delgado q: NOW Start Date: 08/16/19 No administration times (back 96 hours, ahead 96 hours). ------haloperidoL (HALDOL) tablet 5 mg #[id number] Admin Amount: 1 Tab (1 x 5 mg Tab) Ordered Dose: 5 mg Route: Oral Delgado q: ONCE Start Date: 10/30/19 No administration times (back 96 hours, ahead 96 hours). ------cefTRIAXone (ROCEPHIN) 1 g in 0.9% sodium chloride (MBP/ADV) 50 m L M*#[id number] Admin Amount: 1 g Ordered Dose: 1 g Route: IntraVENous Freq: NOW Start Date: 12/05/19 Rate: 100 mL/hr Duration: 30 Minutes Administration linda es (back 96 hours, ahead 96 hours): 12/05/19: 1428NB -----0.9% sodium chloride infusion #[id number] Ordered Dose: 125 mL/hr Route: IntraVENous Freq: CONTINUOUS Start Date: 12/05/19 Rate: 125 mL/hr Duration: Administration times (back 96 hours, ahead 96 hours): 12/05/19: 1408Maxwell Cain MR#: [id number] * Rm : 441-01Ht: 5' 5.75" Wt: 300 lb Code: Full Code Iso:Diagnosis:Encephalopathy acute [G93. 40]Allergies: No Known Allergies -------- Current as of: 12/05/19 180 NB=New Bag --enoxaparin (LOVENOX) injection 40 mg #[id number] Admin Amount: 0.4 mL = 40 mg of 40 mg/0.4 mL Ordered Dose: 40 mg Ro red cliff: SubCUTAneous Freq: EVERY 24 HOURS Start Date: 12/05/19 Administration times (back 96 h [facility] 96 hours): 12/05/19: 209912/06/19: 209912/07/19: 209912/08/19: 2099 ---furosemide (LASIX) injection 20 mg #[id number] Admin Amount: 2 mL = 20 mg of 10 mg/mL Ordered Dose: 20 mg Ro red cliff: IntraVENous Freq: ONCE Start Date: 12/05/19 Administration times (back 96 hours, ea 96 hours): 12/05/19: 1449 ED Current OP MedicationsrisperiDONE (RisperDAL) 2 mg tabletSig:Take 1 Tab by mouth daily.Dispense Amount:30 TabStart Date:12/04/2019End Date:Doc. Provider: Ritika Toledo MDamitriptyline (ELAVIL) 100 mg tabletSi mg.Dispense Amount:Start Date:11/12/2019End Date:Doc. Provider: Tevin Bustosaylaelizabeth 3 mg capsuleSig:Take 6 mg by mouth nightly. Prescription is 6 mg caps ule Indications: bipolar depressionDispense Amount:Start Date:09/03/2019End Date:Doc. Provider: Pr ovider, Historicallithium carbonate 150 mg capsuleSig:Take 300 mg by mouth two (2) times daily (with meals).D ispense Amount:Start Date:End Date:Doc. Provider: Paul Bradford MDclonazePAM (KLONOPIN) 2 mg tabletSig:T stephanie 1 mg by mouth two (2) times daily as needed.Dispense Amount:Start Date:End Date:Doc. Provider: Paul Bradford MD ED Prescriptions None on FileFollow-up Inf ormationFollow-up With:Ritika Canas MDDetails:Comments:Contact Info:[address] [place] [address] [place] [phone] Name Value Range Interpretation Code Description Data Melani rce(s) Supporting Document(s ) ID Date Data Source [id number] 12/05/2019 04:36:09 PM EDT [facility] The history is provided by [...] of morbidity or mortality cardiac cath at [facility] approx 6-8 months ag o Other [...] week Gets together: Once a week Attends islam service: More than 4 times per year [...] QTC Calculation (Bezet) 515 ms Calculated P [place] 40 degrees Calculat ed R [place] 41 degrees Calculated T [place] 147 degrees Diagnosis Sinus tachycardiaProb able left [...] Time: 12/05/19 12:38 PMResult Value Ref Range Paa-Ko level 1.53 (HH) 0.6 - 1.2 MMOL/LLACTIC ACID Collection Time: 12/04 12:40 PMResult Value Ref Range Lactic acid 1.1 0.4 - 2.0 MMOL/LEKG:Sinus tachy cardia at 100 BPM, normal axis, nothing acute.Interpreted by Julio Manzo MD11:2 0 AM telemetry monitor reading shows sinus tachycardia at 100 [...] cardiac monitoring, CXR, and head CT. Will adolescent psychiatrist ocephin, IV fluids, and oxygen. Will consult [...] times daily asneeded. Other, Phys, MDMaoJulio MD I Kishore Lozano, am serving as a scribe [...] Supporting Document(s ) ID Date Data Source [id number] 12/05/2019 04:05:06 PM EDT [facility] [address] [place] [address] [email or web address] CONSULT NOTEPatient: Maxwell Bray Se x: male [...] or sensory fuentes es. Lab significant of Paa-Ko 1.53 and elevatedliver enzymes. Neurology consult ed for encephalopathy/drug adverse reaction.Past Medical History:Diagnosis Date Other unknown and unspecified cause of morbidity or mortality cardiac cath at [facility] approx 6-8 months ago Other unknown [...] QTC Calculation (Bezet) 515 ms Calculated P [place] 40 degrees Calculated R [place] 41 degrees Calculated T [place] 147 degrees Diagnosis Sinus tachycardiaProbable left atrial [...] Time: 12/05/19 12:38 PMResult Value Ref Range Paa-[place] level 1.53 (HH) 0.6 - 1.2 MMOL/LLACTIC [...] were created on an independent workstation. Utilizing [facility] factureralgorithms the examination was performed [...] QTC Calculation (Bezet) 515 ms Calculated P [place] 40 degrees Calculat ed R [place] 41 degrees Calculated T [place] 147 degrees Diagnosis Sinus tachycardiaProb able left [...] glover M79.2 Seizure disorder (HCC) G40.909 Spells [id number] Severe obesity (HCC) E66 .01 Depression F32.9 Anxiety F41.9 Bipolar disorder (HCC) F31.9 Depressive disorde r F32.9 Status post gastric bypass for obesity Z98.84 Morbid obesity (HCC) E66 .01 Mixed anxiety and depressive disorder F41.8 Vitamin D deficiency E55.9 Bipol ar disorder with severe depression (HCC) F31.4 Encephalopathy acute G93.40 Adve rse drug reaction, initial encounter T50.905A Zrs-itxh-seengtg adverse reaction to me dication T88.7XXA49 year old male with pmh as stated above and now with AMS and genera lizedweakness - most likely secondary to lithium toxicity - ? Seizure.Plan: Mri Brain Ammonia Monitor lithium level daily EEG - 24 hrs Seizure precautionsPaulson Gerald Flores 2019 3:19 [id number] Name Value Range Interpretation Code Description Data Melani rce(s) Supporting Document(s ) ID Date Data Source [id number] 12/05/2019 03:37:45 PM EDT [facility] sbar-q given to Ev berger to floor Name Value Range Interpretation Code Description Data Melani rce(s) Supporting Document(s ) ID Date Data Source [id number] 12/05/2019 03:29:57 PM EDT [facility] sbar-q given to Sheri UGALDE on floor Name Value Range Interpretation Code Description Data Melani rce(s) Supporting Document(s ) ID Date Data Source [id number] 12/05/2019 03:28:02 PM EDT [facility] History & PhysicalBrian Anam Bray is [...] h igh dose amytriptylene 200 mg nightly, Paa-Ko, andVraylar 6 mg. :Paa-Ko level on prior admission therapeutic. Patient's wifecontactedthis [...] of morbidity or mortality cardiac cath at [facility] approx 6-8 months ag o Other [...] week Gets together: Once a week Attends islam service: More than 4 times per year [...] Calculati on (Bezet) 515 ms Calculated P [place] 40 degrees Calculated R [place] 41 degrees Elena culated T [place] 147 degrees Diagnosis Sinus tachycardiaProbable left atrial [...] Time: 12/05/19 12:38 PMResult Value Ref Range Paa-Ko level 1.53 (HH) 0.6 - 1.2 MMOL/LLACTIC ACID Collection Time: 12/04 12:40 PMResult Value Ref Range Lactic acid 1.1 0.4 - 2.0 MMOL/All lab results for the last 24 hours reviewed. Serun Paa-Ko level toxicAssessment/PlanPrinci pal Problem: Adverse drug reaction, initial encounter (12/05/2019) LithiumActive Prob lems: Encephalopathy acute (12/05/2019) Flr-lahi-duektfr adverse reaction to med ication (12/05/2019)Neuro, and psych evaluation, hydrationGeorjacqueline Canas MD Name Value Range Interpretation Code Description Data Melani rce(s) Supporting Document(s ) ID Date Data Source [id number] 12/06/2019 12:36:10 PM EDT [facility] Name Value Range Interpretation Description Data Sup porting Code Source(s) Document(s ) Service comment [facility] Bacteria [facility] specimen by Culture ID Date Data Source [id number] 12/05/2019 04:18:26 PM EDT [facility] Name Value Range Interpretation Description Data Sup porting Code Source(s) Document(s ) Color of Urine YEL Abnormal (applies [facility] - to non-numeric Good results) [facility] Appearance of CLEAR Abnormal (applies [facility] - Urine to non-numeric Good results) [facility] Specific gravity 1.033 1.003-1. Above high normal [facility] - of Urine by 030 Good Refractometry [facility] pH of Urine by 5.5 4.6-8.0 [facility] - Test strip [facility] Protein 30 mg/dL NEG Abnormal (applies [facility] - [Mass/volume] in to non-numeric Good Urine by Test results) [facility] Glucose NEG [facility] - [Mass/volume] in Good Urine by Mandaen Automated test [facility] strip Ketones 15 mg/dL NEG Abnormal (applies [facility] - [Presence] in to non-numeric Good Urine by results) Mandaen Automated test [facility] strip Bilirubin.total NEG Abnormal (applies [facility] - [Presence] in to non-numeric Good Urine results) [facility] Hemoglobin NEG [facility] - [Presence] in Good Urine by Test [facility] Urobilinogen 1.0 0.2-1.0 [facility] - [Presence] in EU/dL Good Urine by Mandaen Automated test Hospital strip Nitrite NEG [facility] - [Presence] in Good Urine by Mandaen Automated test [facility] strip Leukocyte NEG [facility] - esterase Good [Presence] in Mandaen Urine by Hospital Automated test strip Leukocytes 0-5 [facility] - [Presence] in Good Urine sediment Mandaen by [facility] microscopy Erythrocytes 0-2 [facility] - [#/area] in Good Urine sediment Mandaen by [facility] high power field Epithelial cells 0-10 [facility] - [#/area] in Good Urine sediment Mandaen by [facility] high power field Bacteria NONE Abnormal (applies [facility] - [Presence] in to non-numeric Good Urine sediment results) Mandaen by [facility] microscopy ID Date Data Source [id number] 12/05/2019 03:26:35 PM EDT [facility] Name Value Range Interpretation Description Data Sup porting Code Source(s) Document(s ) Bilirubin NEG [facility] - Good [Presence] in Mandaen Urine by Hospital Confirmatory method ID Date Data Source [id number] 12/05/2019 02:22:27 PM EDT [facility] I spoke to Dr. Canas regarding Observation Status. Dr. Canas said patient will bemade In Patient Status today. Name Value Range Interpretation Code Description Data Melani rce(s) Supporting Document(s ) ID Date Data Source [id number] 12/05/2019 02:03:27 PM EDT [facility] SW/Psych Screener attempted to meet with Pt for MH evaluation. Pt was foundlying on stretcher with his eyes open, staring at the wall. Leasing Manager knows this Ptfrom previous admission to the medical floor. When ask ed if Pt rememberedwriter, Pt appeared confused, but said he did. Pt stated he fell today, doesn'tremember how he was brought to the hospital. Pt appeared to be searching for hiswords and was having difficulty speaking. Pt unclear of where he is, stating"[place]" when asked where he was and "[place]aud" when asked what month it was. Whenasked if Pt was exhibiting any feelings of S/I, H/I or A/V Hallucinatio ns, Ptresponded with, "No," and confirmed he has been compliant with his psychiatric edications. Leasing Manager conferred with ER Attending, Dr. Manzo, who states that Ptwi ll most likely be medically admitted at this time.Krystina Centeno, [facility], [facility]-2 Name Value Range Interpretation Code Description Data Melani rce(s) Supporting Document(s ) ID Date Data Source [id number] 12/05/2019 12:53:37 PM EDT [facility] CT HEAD W/O CONTRASTPRIOR: Multiple: [...] Supporting Document(s ) ID Date Data Source [id number] 12/05/2019 01:31:37 PM EDT [facility] Name Value Range Interpretation Description Data Sup porting Code Source(s) Document(s ) Lactate 1.1 0.4-2.0 [facility] - Good [Moles/volu MMOL/L [facility]] in Hospital Serum or Plasma ID Date Data Source [id number] 12/10/2019 05:19:22 AM EDT [facility] Name Value Range Interpretation Description Data Sup porting Code Source(s) Document(s ) Service comment [facility] Bacteria [facility] identified in Mandaen Unspecified Hospital specimen by Culture ID Date Data Source [id number] 12/05/2019 02:14:34 PM EDT [facility] Name Value Range Interpretation Description Data Sup porting Code Source(s) Document(s ) Paa-Ko 1.53 0.6-1.2 Above upper panic [facility] - Good [Moles/volu MMOL/L limits [facility]] in Hospital Serum or Plasma CALLED TO AND READ BACK BYSUSI GAMBLE 1414 12/05/19 [facility] ID Date Data Source [id number] 12/05/2019 01:31:37 PM EDT [facility] Name Value Range Interpretation Description Data Sup porting Code Source(s) Document(s ) Troponin 0.00-0.05 [facility] I.cardiac Mandaen [Mass/[facility] ] in Serum or Plasma [...] to 1.50 ng/mL ID Date Data Source [id number] 12/05/2019 01:31:37 PM EDT [facility] Value Range Interpretation Description Data Sup porting Code Source(s) Document(s ) Sodium 134 136-145 Below low normal [facility] - Good [Moles/volume] mmol/L Mandaen in Serum or Hospital Plasma Potassium 3.5 3.5-5.1 [facility] - Good [Moles/volume] mmol/L Mandaen in Serum or Hospital Plasma Chloride 104 98-107 [facility] - Good [Moles/volume] mmol/L Mandaen in Serum or Hospital Plasma Carbon 26 21-32 [facility] - Good dioxide, total mmol/L Mandaen [Moles/volume] Hospital in Serum or Plasma Anion gap in 7 mmol/L 10-20 Below low normal [facility] - Go od Serum or Mandaen Plasma Hospital Glucose 127 74-106 Above high normal [facility] - Good [Mass/volume] mg/dL Mandaen in Serum or Hospital Plasma Urea nitrogen 21 mg/dL 7-18 Above high normal [facility] - Good [Mass/volume] Mandaen in Serum or Hospital Plasma Creatinine 0.94 0.70-1.3 [facility] - Good [Mass/volume] mg/dL 0 Mandaen in Serum or Hospital Plasma Glomerular >60 [facility] - Good filtration Mandaen rate/1.73 sq M Hospital predicted among blacks [Volume Rate/Area] in Serum or Plasma by Creatinine-bas ed formula (MDRD) Glomerular >60 [facility] - Good filtration Mandaen rate/1.73 sq M Hospital predicted among non-blacks [Volume Rate/Area] in Serum or Plasma by Creatinine-bas ed formula (MDRD) (NOTE)Estimated GFR is calculated using the Modification of Diet in RenalDisease (MDRD) Study equation, reported for both Americans(GFRAA) and non- Americans (GFRNA), and normalized to 1.7 3k0mwmm surface area. The physician must decide which [...] normal [facility] - Good Serum or Plasma [facility] Hosp ital Bilirubin.total 0.9 mg/dL 0.2-1.0 [facility] - Good [Mass/volume] in Serum or [facility] Plasma Alanine aminotransferase 34 U/L 13-61 [facility] - Good [Enzymatic activity/volume] [facility] in Serum or Plasma Aspartate aminotransferase 47 U/L 15-37 Above high [facility] - Good [Enzymatic activity/volume] normal [facility] in Serum or Plasma by With P-5'-P Alkaline phosphatase 171 U/L 45-117 Above high [facility] - Good [Enzymatic activity/volume] normal [facility] in Serum or Plasma Protein [Mass/volume] in 7.5 g/dL 6.4-8.2 [facility] - Good Serum or Plasma [facility] ital Albumin [Mass/volume] in 3.8 g/dL 3.5-4.7 [facility] - Good Serum or Plasma by [facility] Bromocresol purple (BCP) dye binding method Globulin [Mass/volume] in 3.7 g/dL 1.7-4.7 [facility] - Good Serum by [facility] with [facility] Albumin/Globulin [Mass 1.0 0.7-2.8 [facility] - Good Ratio] in Serum or Plasma [facility] ID Date Data Source [id number] 12/05/2019 01:31:37 PM EDT [facility] Name Value Range Interpretation Description Data Sup porting Code Source(s) Document(s ) Magnesium 2.9 mg/dL 1.6-2.6 Above high normal [facility] - Good [Mass/volume] Mandaen in Serum or Hospital Plasma ID Date Data Source [id number] 12/05/2019 01:20:04 PM EDT [facility] - Good [facility] Value Range Interpretation Description Data Sup porting Code Source(s) Document(s ) Prothrombin 10.6 sec 9.4-11.1 [facility] - Good time (PT) [facility] INR in 1.0 0.8-1.2 [facility] - Good Platelet poor Mandaen plasma by Hospital Coagulation assay ID Date Data Source [id number] 12/05/2019 01:07:21 PM EDT [facility] Value Range Interpretation Description Data Sup porting Code Source(s) Document(s ) Leukocytes 12.4 4.8-10.6 Above high normal [facility] - [#/volume] in K/uL Good Blood by Mandaen Automated count Hospital Erythrocytes 5.03 4.70-6.0 [facility] - [#/volume] in M/uL 0 Good Blood by Mandaen Automated count Hospital Hemoglobin 15.4 14.0-18. [facility] - [Mass/volume] in g/dL 0 [facility] Blood [facility] Hematocrit 45.8 % 42.0-52. [facility] - [Volume 0 Good Fraction] of Mandaen Blood by Hospital Automated count Erythrocyte mean 91.1 FL 81.0-94. [facility] - corpuscular 0 Good volume [Entitic Mandaen volume] by Hospital Automated count Erythrocyte mean 30.6 PG 27.0-35. [facility] - corpuscular 0 Good hemoglobin Mandaen [Entitic mass] Hospital by Automated count Erythrocyte mean 33.6 30.7-37. [facility] - corpuscular g/dL [address] [facility] [Mass/volume] by Automated count Erythrocyte 12.9 % 11.5-14. [facility] - distribution 0 Good width [Ratio] by Mandaen Automated count [facility] Platelets 164 K/uL 130-400 [facility] - [#/volume] in Good Blood by Mandaen Automated count [facility] Platelet mean 9.5 FL 9.2-11.8 [facility] - volume [Entitic Good volume] in Blood Mandaen by Automated Hospital count Nucleated 0.0 PER 0 [facility] - erythrocytes/100 100 WBC Good leukocytes Mandaen [Ratio] in Blood Hospital Nucleated 0.00 0.0-0.01 [facility] - erythrocytes K/uL Good [#/volume] in Mandaen Blood [facility] Segmented 80 % 48.0-72. Above high normal [facility] - neutrophils/100 0 Good leukocytes in [facility] Lymphocytes/100 8 % 18.0-40. Below low normal [facility] - leukocytes in 0 [facility] Blood [facility] Monocytes/100 10 % 2.0-12.0 [facility] - leukocytes in [facility] Blood [facility] Eosinophils/100 1 % 0.0-7.0 [facility] - leukocytes in [facility] Blood [facility] Basophils/100 0 % 0.0-3.0 [facility] - leukocytes in [facility] Immature 0 % 0-0.5 [facility] - granulocytes/100 Good leukocytes in [facility] by Hospital Automated count Segmented 10.0 2.3-7.6 Above high normal [facility] - neutrophils K/UL Good [#/volume] in [facility] Lymphocytes 1.0 K/UL 0.9-4.2 [facility] - [#/volume] in [facility] Monocytes 1.2 K/UL 0.1-1.7 [facility] - [#/volume] in [facility] Eosinophils 0.1 K/UL 0.0-1.0 [facility] - [#/volume] in [facility] Basophils 0.0 K/UL 0.0-0.4 [facility] - [#/volume] in [facility] Immature 0.1 K/UL 0.0-0.17 [facility] - granulocytes Good [#/volume] in [facility] Automated count Differential [facility] - cell count Good [facility] ID Date Data Source [id number] 12/10/2019 05:19:23 AM EDT [facility] Name Value Range Interpretation Description Data Sup porting Code Source(s) Document(s ) Service comment [facility] Bacteria [facility] identified in [facility] Hospital specimen by Culture ID Date Data Source [id number] 12/05/2019 12:24:35 PM EDT [facility] PELVIS one view.History: TraumaThe study is suboptimal due to the patient's body habitus.There is no evidence of fracture , dislocation, subluxation, bone erosion orarthritis.IMPRESSION: Grossly normal s tudy. Signing date/time: 12/05/2019 12:24 PMSigned by: CURTIS VARMA Name Value Range Interpretation Code Description Data Melani rce(s) Supporting Document(s ) ID Date Data Source [id number] 12/05/2019 12:23:11 PM EDT [facility] CHEST 1 view (s)HISTORY: Chest [...] Supporting Document(s ) ID Date Data Source [id number] 12/05/2019 11:34:39 AM EDT [facility] BIBA for fall in the middle of the night while going to bathroomC/p left hip pain Name Value Range Interpretation Code Description Data [facility] rce(s) Supporting Document(s ) ID Date Data Source [id number] 12/05/2019 11:21:27 AM EDT [facility] Please enter the current weight for this patient in [facility]. Thank you. Name Value Range Interpretation Code Description Data [facility] rce(s) Supporting Document(s ) ID Date Data Source [id number] 11/23/2019 02:02:47 PM EDT [facility] Discharge SummaryPatient: Maxwell Mendieta Xiao pao Sex: male DOA: 10/29/2019Date [...] E66.01ICD-9-CM: 278.01 07/19/2018 - Present Spells ICD-10-CM: [id number]-EA: IMO00 01 04/08/2016 - Present Seizure disorder [...] tr eated with parenteral hydration with benefit f5zdnzkxzipvraluxod responses. Of note i s fact that patient was scheduled to begin ECTtreatment for depression when Covid 1 9 pandemic curtained this plan.Consults: PsychiatrySignificant Diagnostic Studies : labs: microbiology: , radiology: and cardiacgraphics:Discharge Medications: @DISCHARGEMEDLIST@Activity: Activity as toleratedDiet: Resume previous dietWound Care: None neededFollow-up: This examiner to follow in officeRitika Canas MD Name Value Range Interpretation Code Description Data [facility] rce(s) Supporting Document(s ) ID Date Data Source [id number] 11/03/2019 09:41:35 PM EDT [facility] Verbal shift change report given to , RN (oncoming nurse) by Scott Beverly RN (offgoing nurse). Report included the fo llowing information SBAR, Kardex,Intake/Output, MAR and Recent Res ults. Name Value Range Interpretation Code Description Data [facility] rce(s) Supporting Document(s ) ID Date Data Source [id number] 11/03/2019 03:34:07 PM EDT [facility] Per psych note, CM to confirm patient ap pt with psychiatristCall to Dr Mateo Méndez office # [phone], office [facility] ent aware of # to call to make his own appt, psychiatry info placed on [facility] states his will be coming this evening to drive him homeCare Management InterventionsPCP Verified by CM: YesPalliative Care Criteria Met (RRAT>21 & CHF Dx)?: NoMode of Transport at Discharge: Other (see comment)( comi ng between approx5-6)Transition of Care Consult (CM Consult): Discharge Planning Physical Therapy Consult: NoOccupational Therapy Consult: NoSpeech Therapy Consul t: NoCurrent Support Network: Lives with Spouse, Own Home( [place] ,[phone])Confirm Follow Up Transport: FamilyThe Patient and/or Patient [...] Supporting Document(s ) ID Date Data Source [id number] 11/03/2019 02:45:48 PM EDT [facility] PHYSICAL THERAPY TREATMENTPatient: Maxwell Bray [...] Supporting Document(s ) ID Date Data Source [id number] 11/03/2019 01:09:08 PM EDT [facility] General Daily Progress NoteAdmit Date: [...] past 8 hrs: BP Temp Pulse Resp VrT82311/03/19 0752 115 /76 97.6 F (36.4 C) [...] Value Range Interpretation Code Description Data [facility](s) Supporting Document(s ) ID Date Data Source [id number] 11/03/2019 10:52:30 AM EDT [facility] S/O patient has seen for follow up via V ideo . He is doing much better. Hedenies any auditory or visual hallucination any mor eHe has no suicidal or homicidal thoughtsHe reports that he sees Dr. marie every ot her weeksPt wants to follow up with Dr. Marie after dischargePlan continue on a ll current psychotropic medications Requesting child welfare caseworker to confirm his a ppointment with Dr. mariebefore he discharged Please re consult if n eeded Name Value Range Interpretation Code Description [facility] Document(s ) ID Date Data Source [id number] 11/03/2019 07:12:34 AM EDT [facility] Bedside and Verbal shift change report g iven to Meño Rose, SUSI (oncomingnurse) by June Ochoa RN (offgoing nurse). Repor t included the followinginformation SBAR, Kardex, Intake/Output, MAR, Recent Resul ts and Med Rec Status. Name Value Range Interpretation Code Description Data [facility] Supporting Document(s ) ID Date Data Source [id number] 11/02/2019 11:18:25 PM EDT [facility] Problem: Falls - Risk ofGoal: [...] Supporting Document(s ) ID Date Data Source [id number] 11/02/2019 07:34:02 PM EDT [facility] Bedside shift change report given to GILLIAN KEATING (oncoming nurse) by Meño Rose(offgoing nurse). Report included the following information SBAR, Kardex andIntake/Output. Name Value Range Interpretation Code Description Data Melani rce(s) Supporting Document(s ) ID Date Data Source [id number] 11/02/2019 05:14:50 PM EDT [facility] Telehealth Progress NotePursuant to the [...] [] Telephone [x] VideoconferenceDate: 11/02/2019Account Franny mber: [id number]: Maxwell Robin & Joe PROGRESS NOTE:Coordinated treatment team rounds conducted with psychiatrist, patient, nursesand/or home health care social worker present ; dis cussions held with child welfare caseworker and/or familymembers; Chart reviewed in full in cluding it solutions sales consultant notes, ancillary staffnotes, vitals and labs in [facility] EMR reviewed in full.SUBJECTIVE: Pt seen for first time on Video with my TERRY Brooke And RN , hereports less hallucinations , as they are still there in the morning But overall better since got back on vraylar told me was scheduled for ECT at [facility] but due to elective , [...] past 8 hrs: Temp Pulse Resp BP KsT358/04/13 1546 98.3 F (36.8 C) 84 18 [...] (LOVENOX) injection 40 mg 40 mg SubCUTAneous [id number] Medications:C urrent Facility-Administered MedicationsMedication Dose Route Frequen [...] ENOX) injection 40 mg 40 mg SubCUTAneous [id number]/PLAN:Continue current kalie atment as pt is stabalizingPatient [...] Supporting Document(s ) ID Date Data Source [id number] 11/02/2019 03:02:33 PM EDT [facility] General Daily Progress NoteAdmit Date: [...] (LOVENOX) injection 40 mg 40 mg SubCUTAneous [id number]:Patient Vitals for the past 8 hrs: BP [...] contrast. Sagittal and coronal reconstruction was performed.[employer] nursing services manager algorithm the examination was performed to optimizeimaging [...] Name Value Range Interpretation Code Description Data [facility] Supporting Document(s ) ID Date Data Source [id number] 11/02/2019 07:48:14 AM EDT [facility] Verbal shift change report given to Jody wells RN (oncoming nurse) by Juliane UGALDE (offgoing nurse). Report included the following information SBAR,Kardex, Intake/Output, MAR and Recent Results Name Value Range Interpretation Code Description Data [facility] Supporting Document(s ) ID Date Data Source [id number] 11/02/2019 05:41:52 AM EDT [facility] Patient AOX3 with periodic confusion. In bed watching TV. All med's given asordered by , tolerated well. Fall precaution m easures reinforced. [facility], bed in low position. Has urinal and comm ode at bedside. Voices nocomplaint at this time. Will continue to monitor pt. Name Value Range Interpretation Code Description Data [facility] Supporting Document(s ) ID Date Data Source [id number] 11/01/2019 08:46:30 PM EDT [facility] Problem: Falls - Risk ofGoal: [...] Document Harsh Scale and appropriate interventions in [facility].Outcome: P rogressing Towards GoalNote: Pressure Injury Interventions:Sensory [...] Name Value Range Interpretation Code Description Data [facility] Supporting Document(s ) ID Date Data Source [id number] 11/01/2019 08:00:09 PM EDT [facility] Verbal shift change report given to Ly vitale RN (oncoming nurse) by SUSI Palacio (offgoing nurse). Report included the following information SBAR,Intake/Output, MAR and Recent Results. Name Value Range Interpretation Code Description Data [facility](s) Supporting Document(s ) ID Date Data Source [id number] 11/01/2019 03:49:42 PM EDT [facility] [place] [facility] Hospital Adult Progress NoteDate: 11/01/2019Account Number: [id number]: Maxwell Mendieta TrimbleDiagnosis: History of mood and [...] e Bipolar disorder with severe depression ([facility]) 10/29/2019 Mixed anxiety and depr essive disorder 09/04/2019 Vitamin D deficiency 09/04/2019 Anxiety 0 Bipolar disorder ([facility]) 07/21/2019 Depressive disorder 07/21/2019 Status p ost gastric bypass for obesity 07/21/2019 Morbid obesity ([facility]) 07/21/2019 Severe obesity ([facility]) 07/19/2018 Spells 04/08/2016 Seizure disorder ([facility]) 04/30/2014 Insom kacey 11/04/2013 H/O gastric bypass 06/12/2013Past Surgical History:Procedur e Laterality Date ABDOMEN SURGERY PROC UNLISTED gastric bypass 2009 HX GASTRIC BYPASS roue-en-y HX ORTHOPAEDIC 1985 aarthroscopic knee surgery HX ORTHOPAED IC 1990 broken footNo Known AllergiesSocial HistoryTobacco Use Smoking status: Same elizabeth Smoker Smokeless tobacco: Never UsedSubstance Use Topics [...] Problems: Bipolar disorder with severe depression ([facility]) (10/29/2019)Psychotherapy (type and freque ncy) supportiveConsultation psychiatryMedications:Current [...] (LOVENOX) injection 40 mg 40 mg SubCUTAneous C97RMsb following information was reviewed and discussed: Patient [...] Supporting Document(s ) ID Date Data Source [id number] 11/01/2019 02:42:08 PM EDT [facility] General Daily Progress NoteAdmit Date: [...] past 8 hrs: BP Temp Pulse Resp AhD17711/01/19 0715 101/67 98 F (36.7 C) 70 [...] Sagittal and coronal reconstr uction was performed.Utilizing nursing services manager algorithm the examination was performed to optimizeimaging [...] Prominent interstitial markings arefelt to reflect vascular scroll assembler 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 Repeat PA andlateral views the chest are advised i f there is clinical concern for pneumoniaor congestive failure.Assessment:Active Pro blems: Bipolar disorder with severe depression (HCC) (10/29/2019)Plan:Improvin g status Name Value Range Interpretation Code Description Data [facility](s) Supporting Document(s ) ID Date Data Source [id number] 11/01/2019 07:08:12 AM EDT [facility] Verbal shift change report given to Chandrakant Albert RN (oncoming nurse) byMelanie Hoffmann RN (offgoing nurse). Report incl uded the following informationSBAR, Kardex, Intake/Output, MAR and Recent Results. Name Value Range Interpretation Code Description Data [facility](s) Supporting Document(s ) ID Date Data Source [id number] 10/31/2019 07:59:03 PM EDT [facility] Verbal shift change report given to Shreya adrian RN (oncoming nurse) by SUSI Palacio (offgoing nurse). Report included the following information SBAR,Kardex, Intake/Output, MAR and Recent Results. Name Value Range Interpretation Code Description Data [facility](s) Supporting Document(s ) ID Date Data Source [id number] 10/31/2019 05:09:32 PM EDT [facility] Telehealth ConsultationPursuant to the e [...] [] Telephone [x] VideoconferenceSubjective:Patient: Maxwell BrayN #: [id number]: [id number]: 49 y.o. Sex: maleAdm it Date: 10/29/2019Attending: [...] week Gets together: Once a week Attends islam service: More than 4 times per year [...] morbidity or mortal ity cardiac cath at [facility] approx 6-8 months ago Other unknown [...] past 8 hrs: BP Temp Pulse Resp CxU943/02/11 0754 120/60 97.2 F (36.2 C) 70 20 95 %MENTA L STATUS EXAM:FINDINGS WITHIN NORMAL LIMITS (WNL) UNLESS OTHERWISE STATED BELOW:Sens orium COAC9Hoerbkzea Well relatedAppearance: OverweightMotor Behavior: Not examined Speech: [...] Supporting Document(s ) ID Date Data Source [id number] 10/31/2019 04:37:18 PM EDT [facility] [place] [address] [address] BUT[address] Dozier [address]PSPSUAA: MAXWELL BRAYMRN: [id number]: [id number]#: [id number] DATE: 10/29/2019 CONSULTATIONHISTORY OF PRESENT ILLNESS: The [...] and Klonopin.PAST MEDICAL HISTORY: Cardiac cath at [facility] six to eight months ago, concussions,periodic [...] back to his psychiatrist in the [facility].Cognitively,he seems to be fair. His memory to [...] RONAL AGUIRRE, MDDD: 10/30/2019 14:44:41/BR /[id number] / [id number] Name Value Range Interpretation Code Description Data Melani rce(s) Supporting Document(s ) ID Date Data Source [id number] 10/31/2019 01:47:36 PM EDT [facility] General Daily Progress NoteAdmit Date: [...] 8 hrs: BP Temp Pulse Resp S pO205/08/ 0754 120/60 97.2 F (36.2 C) 70 [...] Supporting Document(s ) ID Date Data Source [id number] 10/31/2019 12:59:26 PM EDT [facility] physical Therapy TREATMENTPatient: Maxwell Bray [...] established plan of care.Discharge Recommendations: [facility] [place] Equipment Recommendations for Discharge: NoneSUBJECTIVE:Patient stated "I [...] Supporting Document(s ) ID Date Data Source [id number] 10/31/2019 07:10:46 AM EDT [facility] Bedside and Verbal shift change report g iven to Samy UGALDE (oncoming nurse)by Cristofer Valenzuela RN (offgoing nurse). Repo rt included the following information SBAR, Kardex, MARand Recent Results. Name Value Range Interpretation Code Description Data [facility] rce(s) Supporting Document(s ) ID Date Data Source [id number] 10/30/2019 11:27:14 PM EDT [facility] Problem: Falls - Risk ofGoal: [...] Name Value Range Interpretation Code Description [facility]s ) ID Date Data Source [id number] 10/30/2019 08:09:55 PM EDT [facility] Susi Garcia called as pt [...] be ordered as non formulary also At [facility] Name Value Range Interpretation Code Description Data [facility] rce(s) Supporting Document(s ) ID Date Data Source [id number] 10/30/2019 08:06:30 PM EDT [facility] Telephoned Dr. Oc tompkins pt's c/o new sy mptoms of hallucinations. Orderedreceived, relayed to RNLopez RN on night filler Name Value Range Interpretation Code Description Data [facility] rce(s) Supporting Document(s ) ID Date Data Source [id number] 10/30/2019 08:01:35 PM EDT [facility] Verbal shift change report given to Cecilia wells (oncoming nurse) by Samy Albert RN (offgoing nurse). Report included the fo llowing information SBAR, ProcedureSummary, Intake/Output, MAR and Recent Results. Name Value Range Interpretation Code Description Data [facility]ani rce(s) Supporting Document(s ) ID Date Data Source [id number] 10/30/2019 02:58:51 PM EDT [facility] Problem: Mobility Impaired (Adult and [...] of morbidity or mortality cardiac cath at [facility] approx 6-8 months ago Other unknown [...] Home: NoneCritical Behavior:Neurologic State: AlertOrientation Level: Oriented H1Nrxyhxlyt: Appropriate for age attention/concentrationSafety/Judgement: Awareness of environmentSkin:Strength:Strength: [...] patient's plan of care was discussed with: Registe red Nurse.[x] Fall prevention education was provided and the patient/c aregiverindicated understanding.[x] Patient/family have participated as able in goal setting and plan ofcare.[x] Patient/family agree to work toward stat ed goals and plan of care.[] Patient understands intent and goals of therapy, but is neutral abouthis/her participation.[] Patient is unable to participate in goal setting and plan of care.Comments:Thank you for this referra lBhupendra Enrique, PT,DPT Time Calculation: 19 mins Name Value Range Interpretation Code Description Data Melani rce(s) Supporting Document(s ) ID Date Data Source [id number] 10/30/2019 02:50:37 PM EDT [facility] Telehealth ConsultationPursuant to the e [...] was conducted via [] Telephone [] VideoconferenceSubjective:Patient: aMxwell BrayMRN #: [id number]: [id number]: 49 y.o. Sex: maleAdm it Date: 10/29/2019Attending: [...] Supporting Document(s ) ID Date Data Source [id number] 10/30/2019 02:06:26 PM EDT [facility] Care Management InterventionsPCP Verifie d by CM: YesPalliative Care Criteria Met (RRAT>21 & CHF Dx)?: NoMode of Transport at Discharge: Other (see comment)(family)Transition of Care Consu lt (CM Consult): Discharge PlanningPhysical Therapy Consult: NoOccupational Therapy Consult: NoSpeech Therapy Consult: NoCurrent Support Network: Lives with Spouse, Own Home( [place] [phone])Confirm Foll ow Up Transport: FamilyThe Patient and/or 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 Patient normally works (pre-covid) and drives. CM dept roleexplained, patient is currently denying any HC or rehab needs and states hiswife will drive him home upon DC. PT eval is ordered and pending. 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: naPayor: Payor: [facility] / Plan: [facility] /Product Type: HMO /[facility] Payor: @[email or web address]@Bipolar disorder with severe [...] solving and planning: Notes:Adeq uate coping skills: Notes:Methodist/Cultural barriers: Notes:If unable to assess or n ot applicable: Notes:Suicide Assessment:Primary Diagnosis or Primary Complaint of an Emotional Behavior Disorder: NoPatient is Currently Experiencing Depr ession: NoSuicidal Ideation/Attempts: NoHomicidal Ideation/Attempts: NoAlcohol /Drug Intoxication: NoHallucinations/Delusions: NoPending, A ctive, or Temporary Chcf Orders: NoAggressive/Inappropriate Behavior: NoR eadmit Risk:Support Systems: Family member(s)Advanced Care Planning:Confirm Advance Directive: NoneDiscussed with the patient and all questions fully answered . He will call me ifany problems arise. Name Value Range Interpretation Code Description Data Melani rce(s) Supporting Document(s ) ID Date Data Source [id number] 10/30/2019 12:38:13 PM EDT [facility] General Daily Progress NoteAdmit Date: Hospital day: .tdSubjective:Patient markedly improved this am, speech now no rmal. Denies possibleinadvertent overdose of chronic meds. Accepting of psych consult . PT toevaluate. Claims symptoms of mild nausea. Meds reviewed claims to be takin gElavil G 150 mg HS ,Klonopin 1 mg twice a day, Paa-Ko 300 twice daily, Vraylar3 m g dailyCurrent [...] past 8 hrs: BP Temp Pulse Resp FgM01910/30/19 0727 (!) 130/96 98 F (36.7 C) [...] Supporting Document(s ) ID Date Data Source [id number] 10/30/2019 07:52:05 AM EDT [facility] Verbal shift change report given to Chandrakant rosa RN (oncoming nurse) Tavares UGALDE (offgoing nurse). Report included the fo llowing information SBAR,Kardex, Procedure Summary, Intake/Output, MAR and Recent R esults. Name Value Range Interpretation Code Description Data Melani rce(s) Supporting Document(s ) ID Date Data Source [id number] 10/30/2019 06:40:05 AM EDT [facility] Pt. AOX3, periodic confusion. Commode an d urinal at bedside. Seizure and fallprecaution measures in place. Voice s no complaint during shift . Name Value Range Interpretation Code Description Data Melani rce(s) Supporting Document(s ) ID Date Data Source [id number] 10/30/2019 07:29:12 AM EDT [facility] Name Value Range Interpretation Description Data Sup porting Code Source(s) Document(s ) Sodium 139 136-145 [facility] - Good [Moles/volume] mmol/L [facility]anda[facility] in Serum or Hospital Plasma Potassium 3.6 3.5-5.1 [facility] - Good [Moles/volume] mmol/L [facility]anda[facility] in Serum or Hospital Plasma Chloride 110 98-107 Above high normal [facility] - Good [Moles/volume] mmol/L [facility] in Serum or Hospital Plasma Carbon 24 21-32 [facility] - Good dioxide, total mmol/L Mandaen [Moles/volume] Hospital in Serum or Plasma Anion gap in 9 mmol/L 10-20 Below low normal [facility] - Go od Serum or [facility] Plasma Hospital Glucose 96 mg/dL 74-106 [facility] - Good [Mass/volume] [facility]anda[facility] in Serum or Hospital Plasma Urea nitrogen 10 mg/dL 7-18 [facility] - Good [Mass/volume] [facility]anda[facility] in Serum or Hospital Plasma Creatinine 0.81 0.70-1.3 [facility] - Good [Mass/volume] mg/dL 0 [facility] in Serum or Hospital Plasma Glomerular >60 [facility] - Good filtration Manda[facility] rate/1.73 sq M Hospital predicted among blacks [Volume Rate/Area] in Serum or Plasma by Creatinine-bas ed formula (MDRD) Glomerular >60 [facility] - Good filtration Mandaen rate/1.73 sq M Hospital predicted among non-blacks [Volume Rate/Area] in Serum or Plasma by Creatinine-bas ed formula (MDRD) Calcium 8.2 8.5-10.1 Below low normal [facility] - Good [Mass/volume] mg/dL [facility]anda[facility] in Serum or Hospital Plasma ID Date Data Source [id number] 10/30/2019 07:05:07 AM EDT [facility] Name Value Range Interpretation Description Data Sup porting Code Source(s) Document(s ) Leukocytes 4.8 K/uL 4.8-10.6 [facility] - [#/volume] in Good Blood by [facility] Erythrocytes 4.59 4.70-6.0 Below low normal [facility] - [#/volume] in M/uL 0 Good Blood by [facility] Hemoglobin 14.0 14.0-18. [facility] - [Mass/volume] in g/dL 0 [facility] Blood [facility] Hematocrit 42.7 % 42.0-52. [facility] - [Volume 0 Good Fraction] of [facility]anda[facility] Blood by Hospital Automated count Erythrocyte mean 93.0 FL 81.0-94. [facility] - corpuscular 0 Good volume [Entitic Mandaen volume] by Hospital Automated count Erythrocyte mean 30.5 PG 27.0-35. [facility] - corpuscular 0 Good hemoglobin Manda[facility] [Entitic mass] Hospital by Automated count Erythrocyte mean 32.8 30.7-37. [facility] - corpuscular g/dL [address] [facility] [Mass/volume] by Automated count Erythrocyte 13.3 % 11.5-14. [facility] - distribution 0 Good width [Ratio] by [facility] Platelets 159 K/uL 130-400 [facility] - [#/volume] in Good Blood by [facility] Platelet mean 8.6 FL 9.2-11.8 Below low normal [facility] - volume [Entitic Good volume] in Blood [facility]anda[facility] by Automated Hospital count Nucleated 0.0 PER 0 [facility] - erythrocytes/100 100 WBC Good leukocytes Mandaen [Ratio] in Blood Hospital Nucleated 0.00 0.0-0.01 [facility] - erythrocytes K/uL Good [#/volume] in [facility] Segmented 54 % 48.0-72. [facility] - neutrophils/100 0 Good leukocytes in [facility] Lymphocytes/100 32 % 18.0-40. [facility] - leukocytes in [address] [facility] Monocytes/100 9 % 2.0-12.0 [facility] - leukocytes in Good Blood [facility] Eosinophils/100 5 % 0.0-7.0 [facility] - leukocytes in [facility] Basophils/100 1 % 0.0-3.0 [facility] - leukocytes in [facility] Immature 0 % 0-0.5 [facility] - granulocytes/100 Good leukocytes in [facility] Blood by Hospital Automated count Segmented 2.6 K/UL 2.3-7.6 [facility] - neutrophils Good [#/volume] in [facility] Lymphocytes 1.5 K/UL 0.9-4.2 [facility] - [#/volume] in [facility] Monocytes 0.4 K/UL 0.1-1.7 [facility] - [#/volume] in [facility] Eosinophils 0.2 K/UL 0.0-1.0 [facility] - [#/volume] in [facility] Basophils 0.0 K/UL 0.0-0.4 [facility] - [#/volume] in [facility] Immature 0.0 K/UL 0.0-0.17 [facility] - granulocytes Good [#/volume] in [facility] Automated count Differential [facility] - cell count [facility] method [facility] ID Date Data Source [id number] 10/29/2019 07:40:21 PM EDT [facility] Verbal shift change report given to Wai rogers RN(oncoming nurse) by Elizabeth Meehan RN (offgoing nurse). Report included the fo llowing information SBAR, Kardex, EDSummary, Intake/Output, MAR and Recent Results. Name Value Range Interpretation Code Description Data Melani rce(s) Supporting Document(s ) ID Date Data Source [id number] 10/30/2019 06:54:22 PM EDT [facility] Name Value Range Interpretation Description Data Sup porting Code Source(s) Document(s ) Color of Urine YEL [facility] Appearance of CLEAR [facility] - Urine [facility] Specific gravity 1.015 1.003-1. [facility] - of Urine by 030 [facility] pH of Urine by 6.0 4.6-8.0 [facility] - Test strip [facility] Protein NEG [facility] - [Mass/volume] in Good Urine by Test [facility] Glucose NEG [facility] - [Mass/volume] in Good Urine by [facility] Automated test Hospital strip Ketones NEG [facility] - [Presence] in Good Urine by [facility] Automated test Hospital strip Bilirubin.total NEG [facility] - [Presence] in Good Urine [facility] Hemoglobin NEG [facility] - [Presence] in Good Urine by Test [facility] Urobilinogen 1.0 0.2-1.0 [facility] - [Presence] in EU/dL Good Urine by [facility] Automated test Hospital strip Nitrite NEG [facility] - [Presence] in Good Urine by [facility] Automated test Hospital strip Leukocyte NEG [facility] - esterase Good [Presence] in [facility]anda[facility] Urine by Hospital Automated test strip ID Date Data Source [id number] 10/29/2019 06:14:12 PM EDT [facility] Spoke with to clarify meds..correct doses obtained Name Value Range Interpretation Code Description Data Melani rce(s) Supporting Document(s ) ID Date Data Source [id number] 10/29/2019 06:01:22 PM EDT [facility] Pt unsure of dose of Vraylar will call w berta Name Value Range Interpretation Code Description Data Melani rce(s) Supporting Document(s ) ID Date Data Source [id number] 10/29/2019 03:56:40 PM EDT [facility] [id number] [facility] [employer] 4 G[place] MED SURG [address] [facility] [address] [phone] Maxwell Bray (Male) [id number] ES I 2 ED Dispo:ADMIT Chief Complaint: Dysarthria, Lethargy Diagnosis: Altered mental status, unspecified altered mental statu s type [] Bipolar disorder with severe depression (HCC) [] Current Providers: Att ending: Cole Ernandez; Cristi Canas Consulting Provider: Cristi Canas Primary Nurse: Kristy Moss Tech: Janet HERMANNN: [phone] [employer] [phone] - Bs hsi Ed Medva MrnMRN: [id number] [employer] [phone] - Bshsi Ed Medva Age Sex 1970 AGE 49 SEX Male Primary Care Provider: Ritika Canas MD Obhwetfuq: (No Kn own Allergies)Date Reviewed: 10/29/2019Reviewed by: Ritika Canas MD - Review CompleteED Provider Notes: All no tesHNO ID: [id number]: Cristobal Ernandez MDService: -Author Type: PhysicianFiled: 10/29/19 [...] of morbidity or mortality cardiac cath at [facility] approx 6-8 months ago Other unknown [...] week Gets together: Once a week Attends islam service: More than 4 times per year [...] QTC Calculation (Bezet) 446 ms Calculated P [place] 53 degrees Calc ulated R [place] 68 degrees Calculated T [place] 0 degrees Diagnosis Sinus tachycardiaProlonged MO intervalNo [...] Time: 10/29/19 10:45 AMResult Value Ref Range Paa-Ko level <0.20 (L) 0.6 - 1.2 MMOL/L [...] contrast. Sagittal and coronalreconstruction was performed. Utilizing nursing services manager algorithm theexaminationwas performed to optimize imaging quality [...] status, unspecified altered menta l status type [id number] condition at time of disposition: StableI have [...] mouth daily. Other,Ailyn Miller Stephen, MD I, Gayle nder Abdi, am serving as a scribe to [...] d thediagnostic studies, unless otherwise noted.+ED Orders [id number] CBC WITH AUTOMATED DIFF [# [id number]] Priority: STAT Class: ER Collect Standing Order Information Remaining Occurrences:0 /1 Interval:ONE TIME Last released:10/29/2019 Released orders: SunOctober 29, 2019 11:02 AM by: CRISTOBAL ERNANDEZ [id number] METABOLIC PANEL, COMPREHENSIVE [#[id number]] Bridgette ority: STAT Class: ER Collect Standing Order Information Remaining Occurrences:0/1 Inter haile:ONE TIME Last released:10/29/2019 Released orders: SunOctober 29, 2019 11:02 AM by: CRISTOBAL WADE [id number] PROTHROMBIN TIME + INR [#[id number]] Priority: STAT Class: E R Collect Standing Order Information Remaining Occurrences:0/1 Interval:ONE TI ME Last released:10/29/2019 Released orders: SunOctober 29, 2019 11:02 AM by: BRIE ERNANDEZ EN [id number] PTT [#[id number]] Priority: STAT Class: ER Collect Speci men Source: Blood Standing Order Information Remaining Occurrences:0/1 Interval:ONE TI ME Last released:10/29/2019 Released orders: SunOctober 29, 2019 11:02 AM by: BRIE ERNANDEZ EN [id number] URINALYSIS W/ RFLX MICROSCOPIC [#[id number]] Priority: STAT Class: ER Collect Sta nding Order Information Remaining Occurrences:0/1 Interval:ONE TIME Last released:0 10/29/2019 Released orders: SunOctober 29, 2019 11:02 AM by: CRISTOBAL ERNANDEZ [id number] LITHIUM [#[id number]] Priority: STAT Class: ER Collect Standing Order Information Remaining Occurrences:0/1 Interval:ONE TIME Last released:10/29/2019 Released orders : SunOctober 29, 2019 11:02 AM by: CRISTOBAL ERNANDEZ [id number] CBC WITH AUTOMATED DIFF [# [id number]] Priority: STAT Class: ER Collect Specimen Source: Whole Blood Specimen Collected: 020 10:45 AM Resulting Agency: [facility] Test ID: [id number] Released on: 0 11:02 AM [id number] METABOLIC PANEL, COMPREHENSIVE [#[id number]] Priority: STAT Class: E R Collect Specimen Source: Plasma Specimen Collected: 10/29/2019 10:45 AM Resulting Agency: [facility] Test ID: MPL Released on: 10/29/2019 11:02 AM [id number] PROTHROMBIN TIME + IN R [#[id number]] Priority: STAT Class: ER Collect Specimen Source: Plasma Specimen Collec hyun: 10/29/2019 10:45 AM Resulting Agency: [facility] Test ID: [id number] Released o n: 10/29/2019 11:02 AM [id number] PTT [#[id number]] Priority: STAT Class: ER Collect Specimen Source: Plasma Specimen Collected: 10/29/2019 10:45 AM Resulting Agency: [facility] Test ID: APTT Released on: 10/29/2019 11:02 AM [id number] URINALYSIS W/ RFLX HI CROSCOPIC [#[id number]] Priority: STAT Class: ER Collect Resulting Agency: [facility] Test ID: UA Released on: 10/29/2019 11:02 AM [id number] LITHIUM [#[id number]] Priority: STAT Class: ER Collect Specimen Source: Serum Specimen Collected: 10/28 10:45 AM Resulting Agency: [facility] Test ID: LI Released on: 10/29/2019 11:02 AM [id number] CBC WITH AUTOMATED DIFF [#[id number]] Priority: STAT Class: E R Collect Standing Order Information Remaining Occurrences:06/25 Interval:TOMORR OW AM [id number] METABOLIC PANEL, BASIC [#[id number]] Priority: STAT Class: ER Collect St anding Order Information Remaining Occurrences:06/25 Interval:TOMORROW AM [id number] CT HEAD W O CONT [#[id number]] Priority: Routine Class: Hospital Performed Standing Or mariano Information Remaining Occurrences:0/1 Interval:ONE TIME Last released:10/29/2019 Released orders: SunOctober 29, 2019 11:02 AM by: CRISTOBAL ERNANEDZ Reason for Exam -> ams IMG 2590 XR CHEST PORT [#[id number]] Priority: STAT Class: Hospital Performe d Standing Order Information Remaining Occurrences:0/1 Interval:ONE TIME Last release d:10/29/2019 Released orders: SunOctober 29, 2019 11:02 AM by: CRISTOBAL ERNANDEZ Reason for Exam -> ams [id number] CT HEAD WO CONT [#[id number]] Priority: STAT Class: Hospital Perfo rmed Specimen Collected: 10/29/2019 11:54 AM Resulting Agency: [facility] Test ID: [id number] Ivis son for Exam -> ams Released on: 10/29/2019 11:02 AM [id number] XR CHEST PORT [#[id number]] Priority: STAT Class: Hospital Performed Specimen Collected: 10/29/2019 12:16 PM Resultin g Agency: [facility] Test ID: [id number] Reason for Exam -> ams Released on: 10/29/2019 11:02 AM [id number] EKG, 12 LEAD, INITIAL [#[id number]] Priority: STAT Class: Hospital Performe d Standing Order Information Remaining Occurrences:0/1 Interval:ONE TIME Last release d:10/29/2019 Released orders: SunOctober 29, 2019 11:02 AM by: CRISTOBAL ERNANDEZ Reason for Exam : -> chest pain [id number] EKG, 12 LEAD, INITIAL [#[id number]] Priority: STAT Class: H ospital Performed Resulting Agency: [facility] Test ID: [id number] Reason for Exam: -> chest pain Releas ed on: 10/29/2019 11:02 AM [id number] POC GLUCOSE [#[id number]] Priority: STAT Cl ass: Hospital Performed Standing Order Information Remaining Occurrences:0/1 Interval:ONE TI ME Last released:10/29/2019 Released orders: SunOctober 29, 2019 11:02 AM by: BRIE ERNANDEZ EN [id number] POC GLUCOSE [#[id number]] Priority: STAT Class: Hospital Performe d Released on: 10/29/2019 11:02 AM [id number] VITAL SIGNS PER UNIT ROUTINE [#[id number]] Priorit y: STAT Class: Hospital Performed Standing Order Information Remaining Occurrences:0/1 Inte rval:CONTINUOUS Last released:10/29/2019 Released orders: SunOctober 29, 2019 2:54 PM by: RITIKA CANAS Comment:More frequently if Indicated. [id number] BEDREST, COMPLETE [#[id number]] Priority: STAT Class: Hospital Performed Standing Order Information Remainin g Occurrences:0/1 Interval:CONTINUOUS Last released:10/29/2019 Released orders : SunOctober 29, 2019 2:54 PM by: RITIKA CANAS [id number] NOTIFY PROVIDER: VITAL SIGNS CHANGES [# [id number]] Priority: STAT Class: Hospital Performed Standing Order [...] Less than 120 ml in 4 hours [id number] APPLY/MAINTAIN SEQUENTIAL COMPRESSIO* [#[id number]] Priority: ST AT Class: Hospital Performed Standing Order Information Remaining Occurrences:0/1 Inter haile:CONTINUOUS Last released:10/29/2019 Released orders: SunOctober 29, 2019 2:54 PM by: RITIKA CANAS [id number] VITAL SIGNS PER UNIT ROUTINE [#[id number]] Priority: STAT Class: H ospital Performed Comment:More frequently if Indicated. Released on: 10/29/2019 2:54 PM [id number] BEDREST, COMPLETE [#[id number]] Priority: STAT Class: Hospital Performed Relea sed on: 10/29/2019 2:54 PM [id number] NOTIFY PROVIDER: VITAL SIGNS CHANGES [#[id number]] Priority: STAT Class: Hospital Performed Temp -> [...] carmen rs Released on: 10/29/2019 2:54 PM [id number] APPLY/MAINTAIN SEQUENTIAL COMPRESSIO* [#[id number]] P riority: STAT Class: Hospital Performed Released on: 10/29/2019 2:54 PM SODIUM CHLORIDE 0.9 % IJ SYRG [#[id number]] Priority: STAT Class: Normal SODIUM CHLORIDE 0.9 % IJ SYRG [#[id number]] Priority: STAT Class: Normal ACETAMINOPHEN 325 MG TABLET [# [id number]] Priority: STAT Class: Normal ENOXAPARIN 40 MG/0.4 ML SUB-Q SYRINGE [#[id number]] Priority: STAT Class: Normal SODIUM CHLORIDE 0.9 % IV [#[id number]] Priority: STAT Class: Normal [id number] GLUCOSE, POC [#[id number]] Priority: Routine Class : ER Collect Resulting Agency: [facility] Test ID: BGG Standing Order Informati on Remaining Occurrences:0/1 Released orders: SunOctober 29, 2019 11:26 AM by: Automatic B atch Process [id number] GLUCOSE, POC [#[id number]] Priority: Routine Class : ER Collect Specimen Source: Whole Blood Specimen Collected: 10/29/2019 11:26 AM Resulting Agency: [facility] Test ID: BGG Released on: 10/29/2019 11:26 AM [id number] IP CONSULT TO PRIMARY CARE PROVIDER [#[id number]] Priority: STAT Class: Hospital Performed Standing Order Inf ormation Remaining Occurrences:0/1 Interval:ONE TIME Last released:10/29/2019 Relea sed orders: SunOctober 29, 2019 12:59 PM by: CRISTOBAL ERNANDEZ Reason for Consult: -> admit Did you call or speak to the consulting provider? -> No Consult To -> dr canas [id number] IP CONSULT TO PRIMAR Y CARE PROVIDER [#[id number]] Priority: STAT Class: Hospital Performed Reason for Consult: -> ad rei Did you call or speak to the consulting provider? -> No Consult To -> dr canas Released on: 12:59 PM CON53 IP CONSULT TO PSYCHIATRY [#[id number]] Priority: STAT Class: H ospital Performed Standing [...] -> TODAY CON53 IP CONSULT TO PSYCHIATRY [#[id number]] Priority: STAT Class: Hospital Performed Reason for Consult: -> 49 yo male with severe bipolar diseas e, admitted with slurred speech, severe weakness Did you call or speak to t he consulting provider? -> No Consult To -> Dr Aguirre Schedule When? -> TODAY Released on: 10/29/2019 2:54 PM [id number] INITIAL PHYSICIAN ORDER: INPATIENT [#[id number]] Priority: Routine Class : ADT Pend Transfer [...] Discharge Plan: -> Home with Office Follow-up [id number] INITIAL PHYSICIAN ORDER: INPATIENT [# [id number]] Priority: Routine Class: ADT Pend Transfer Status: [...] RITIKA CANAS Attending Physician - > RITIKA CNAAS Estimated Length of Stay -> 3-4 Midnights Discharge Plan: -> Home with Office Foll ow-up Released on: 10/29/2019 2:43 PM [id number] INITIAL PHYSICIAN ORDER: INPATIENT [#[id number]] Priority: Routine Class: ADT Pend Transfer [...] 3-4 Midnights Discharge Plan: -> Other (Specify) [id number] INITIAL PHYSIC JOSE ORDER: INPATIENT [#[id number]] Priority: Routine Class: ADT Pend Transfer Status: [...] 2:54 PM IVT3 INSERT PERIPHERAL IV [# [id number]] Priority: STAT Class: Hospital Performed Standing Order Information Remaining Occurre nces:0/1 Interval:ONE TIME Last released:10/29/2019 Released orders: Sun 6, 2 020 2:54 PM by: RITIKA CANAS IVT3 INSERT PERIPHERAL IV [#[id number]] Priority: ST AT Class: Hospital Performed Released on: 10/29/2019 2:54 PM CON75 IP CONSULT TO PHYSICAL THERAPY [#[id number]] Priority: STAT Class: Hospital Performed Standing Order Information Remainin g Occurrences:14 Interval:DAILY Last released:10/29/2019 Released orders : SunOctober 29, 2019 2:54 PM by: RITIKA CANAS CON75 IP CONSULT TO PHYSICAL THERAPY [#[id number]] Priority: STAT Class: Hospital Performed Released on: 10/29/2019 2:54 PM COD2 FULL CODE [#[id number]] Priority: STAT Class: Hospital Performed Standing Order Inf ormation Remaining Occurrences:0/1 Interval:CONTINUOUS Last released:10/29/2019 Rel eased orders: SunOctober 29, 2019 2:54 PM by: RTIIKA CANAS COD2 FULL CODE [#[id number]] Priority: STAT Class: Hospital Performed Released on: 10/29/2019 2:54 PM DIET10 4 DIET FULL LIQUID [#[id number]] Priority: STAT Class: Hospital Performed Stand ing Order Information Remaining Occurrences:0/1 Interval:DIET EFFECTIVE NOW Last released:10/29/2019 Released orders: SunOctober 29, 2019 2:54 PM by: RITIKA CANAS Comment:A dvance as tolerated to regular diet [id number] DIET FULL LIQUID [#[id number]] Priority: STAT Class: Hospital Performed Comment:Advance as tolerated to regular diet Released on: 10/29/2019 2:54 JORDYMaxwell waddell MR#: [id number] * Rm: 416-02Ht: 5' 7" Wt: 3 00 lb Code: Full Code Iso:Diagnosis:Bipolar disorder with severe depression (HCC) [F31.4]Allergies : No Known Allergies -------- Current as of: 10/29/19 1556 ---aspirin (ASPIRIN) tablet 325 mg #[id number] Admin Amount: 1 Tab (1 x 325 mg Tab) Ordered Dose: 325 mg Route: Oral Freq: ONCE Start Date: 12/24/13 No administration times (back 96 hours, ahead 96 hours). ------diphenhydrAMINE (BENADRYL) capsule 50 mg #[id number] Admin Amount: 1 Cap (1 x 50 mg Cap) Ordered Dose: 50 mg Ro red cliff: Oral Freq: NOW Start Date: 12/24/13 No administration times (back 96 hours, e ad 96 hours). ------diazepam (VALIUM) tablet 5 mg #[id number] Admin Amount: 1 Tab (1 x 5 mg Tab) Ordered Dose: 5 mg Route: Ora l Freq: ONCE Start Date: 12/24/13 No administration times (back 96 hours, e ad 96 hours). ------lidocaine (XYLOCAINE) 10 mg/mL (1 %) injection 1-30 mL #[id number] Admin Amount: 1-30 mL Ordered Dose: 1-30 mL Route: IntraDERMal Freq: ONC E Start Date: 12/24/13 No administration times (back 96 hours, ahead 96 hours). ------heparin (PF) 2 units/ml in NS infusion 2,000 Units #[id number] Admin Amount: 1,000 mL = 2,000 Units of 2 Units/mL Ordered Dose: 1,000 mL Route: Irrigation Freq: ONCE Start Date: 12/24/13 No administration times (b ack 96 hours, ahead 96 hours). ------heparinized saline 2 units/mL infusion 1,000 Units #[id number] Admin Amount: 500 mL = 1,000 Units of 2 Units/mL Ordered Dose: 500 mL R oute: IntraarTERial Freq: ONCE Start Date: 12/24/13 No administration times (back 96 hours, ahead 96 hours). ------0.9% sodium chloride infusion #[id number] Ordered Dose: 75 mL/hr Route: IntraVENous Freq: CONTINUOUS Start Date: 12/24/13 Rate: 75 mL/hr Duration: No administration times (back 96 hours, ahead 96 hours). ------ioversol (OPTIRAY) 320 mg iodine/mL contrast injection 1-100 mL #[id number] Admin Amount: 1-100 mL Ordered Dose: 1-100 mL Route: IntraVENous Freq: RAD ONCE Start Date: 12/24/13 No administration times (back 96 hours, ahead 96 hours).Maxwell Bray MR#: [id number] * Rm: 416-02Ht: 5' 7" Wt: 300 lb Code: Full Code Iso:Diagnosis:Bipolar disorder with severe depression (HCC) [F31.4]Allergies: No Kn own Allergies -------- Current as of: 10/29/19 1556 ---gadobutrol (GADAVIST) contrast solution 1-10 mL #[id number] Admin Amount: 1-10 mL Ordered Dose: 1-10 mL Route: IntraVENo us Freq: RAD ONCE Start Date: 01/13/14 No administration times (back 96 hours, ahe ad 96 hours). ------sodium chloride (NS) flush 5-10 mL #[id number] Admin Amount: 5-10 mL Ordered Dose: 5-10 mL Route: IntraVENous Freq: RA D ONCE Start Date: 01/13/14 No administration times (back 96 hours, ahead 96 hours). ------sodium chloride (NS) 0.9 % flush #[id number] Ordered Dose: Route: Freq: Start D ate: 01/13/14 No administration times (back 96 hours, ahead 96 hours). ------morphine injection 2 mg #[id number] Admin Amount: 1 mL = 2 mg of 2 mg/mL Ordered Dose: 2 mg Route: Int raVENous Freq: NOW Start Date: 03/13/15 No administration times (back 96 hours, ahe ad 96 hours). ------influenza vaccine (4 yr+)(PF) (FLUCELVAX QUAD) inj ection 0.5*#[id number] Admin Amount: 0.5 mL Ordered Dose: 0.5 mL Route: IntraMUSCular Freq : PRIOR TO DISCHARGE Start Date: 03/30/16 No administration times (back 96 hours, ahead 96 hours). ------oxyCODONE-acetaminophe n (PERCOCET) 5-325 mg per tablet 1 Tab #[id number] Admin Amount: 1 Tab Ordered Dose: 1 Tab Route: Oral Freq: NOW Start Date: 09/07/17 No administration times (back 96 hours, ahead 96 hours). ------barium sulfate (READICAT) 2.1 % (w/v), 2.0 % (w /w) oral suspension 9*#[id number] Admin Amount: 900 mL Ordered Dose: 900 mL Route: Ora l Freq: RAD ONCE Start Date: 10/15/17 No administration times (back 96 hours, ahe ad 96 hours). ------iopamidol (ISOVUE 300) 61 % contrast injection 100 mL #[id number] Admin Amount: 100 mL Ordered Dose: 100 mL Route: IntraVENous Freq: RAD O NCE Start Date: 10/15/17 No administration times (back 96 hours, ahead 96 hours).Maxwell Bray MR#: [id number] * Rm: 416-02Ht: 5' 7" Wt: 300 lb Cod e: Full Code Iso:Diagnosis:Bipolar disorder with severe depression (HCC) [F31.4]Allergies: No Kn own Allergies -------- Current as of: 10/29/19 1556 ---risperiDONE (RisperDAL m-tabs) disintegrating tablet 1 mg #[id number] Admin Amount: 1 Tab (1 x 1 mg Tab) Ordered Dose: 1 mg Ro red cliff: Oral Freq: ONCE Start Date: 12/24/17 No administration times (back 96 hours, e ad 96 hours). ------ALPRAZolam (XANAX) tablet 2 mg #[id number] Admin Amount: 4 Tab (4 x 0.5 mg Tab) Ordered Dose: 2 mg Route: Ora l Freq: NOW Start Date: 12/24/17 No administration times (back 96 hours, e ad 96 hours). ------lamoTRIgine (LaMICtal) tablet 100 mg #[id number] Admin Amount: 1 Tab (1 x 100 mg Tab) Ordered Dose: 100 mg Route: Ora l Freq: ONCE Start Date: 12/24/17 No administration times (back 96 hours, ahe ad 96 hours). ------OLANZapine (ZyPREXA zydis) disintegrating tablet 5 mg #[id number] Admin Amount: 1 Tab (1 x 5 mg Tab) Ordered Dose: 5 mg Route: Ora l Freq: ONCE Start Date: 12/25/17 No administration times (back 96 hours, e ad 96 hours). ------LORazepam (ATIVAN) tablet 2 mg #[id number] Admin Amount: 4 Tab (4 x 0.5 mg Tab) Ordered Dose: 2 mg Route: Ora l Freq: NOW Start Date: 12/25/17 No administration times (back 96 hours, [facility] ad 96 hours). ------LORazepam (ATIVAN) injection 1 mg #[id number] Admin Amount: 0.5 mL = 1 mg of 2 mg/mL Ordered Dose: 1 mg Ro red cliff: IntraVENous Freq: NOW Start Date: 12/25/17 No administration times (back 96 hours, ahead 96 hours). ------barium sulfate (EZ PAQUE) 96 % (w/w) contrast suspension 17 6 g #[id number] Admin Amount: 176 g Ordered Dose: 176 g Route: Oral Freq: RAD ONCE Start Date: 08/02/18 No administration times (back 96 hours, ahead 96 hours). ------barium sulfate (EZ PAQUE) 96 % (w/w) contrast suspension 17 6 g #[id number] Admin Amount: 176 g Ordered Dose: 176 g Route: Oral Freq: RAD ONCE Start Date: 08/02/18 No administration times (back 96 hours, ahead 96 hours).Maxwell Bray MR#: [id number] * Rm: 416-02Ht: 5' 7" Wt: 300 lb Code: Full Co de Iso:Diagnosis:Bipolar disorder with severe depression ([facility]) [F31.4]Allergies: No Known Allergies -------- Current as of: 10/29/19 1556 ---aspirin chewable tablet 162 mg #[id number] Admin Amount: 2 Tab (2 x 81 mg Tab) Ordered Dose: 162 mg Route: Ora l Freq: NOW Start Date: 08/10/19 No administration times (back 96 hours, ahe ad 96 hours). ------0.9% sodium chloride infusion 1,000 mL #[id number] Admin Amount: 1,000 mL Ordered Dose: 1,000 mL Route: IntraVENous Freq: O NCE Start Date: 08/16/19 Rate: 1,000 mL/hr Duration: No administratio n times (back 96 hours, ahead 96 hours). ------methylPREDNISolone (PF) (Solu-MEDROL) injection 125 mg #[id number] Admin Amount: 2 mL = 125 mg of 125 mg/2 mL Ordered Dose: 125 mg Ro red cliff: IntraVENous Freq: NOW Start Date: 08/16/19 No administration times (back 9 6 hours, ahead 96 hours). ------aspirin chewable tablet 162 mg #[id number] Admin Amount: 2 Tab (2 x 81 mg Tab) Ordered Dose: 162 mg Route: Ora l Freq: NOW Start Date: 08/16/19 No administration times (back 96 hours, ahe ad 96 hours). ------sodium chloride (NS) flush 5-40 mL #[id number] Admin Amount: 5-40 mL Ordered Dose: 5-40 mL Route: IntraVENous Freq: EV AN 8 HOURS Start Date: 10/29/19 Administration times (back 96 hours, ahead 96 hours): : 1400 2200 10/30/19: 0600 1400 2200 10/31/19: 06 1400 2200 11/01/19: 599 1400 0 11/02/19: 599 1400 ---sodium chloride (NS) flush 5-40 mL #[id number] Admin Amount: 5-40 mL Ordered Dose: 5-40 mL Route: IntraVENous Freq: NEEDED Start Date: 10/29/19 No administration times (back 96 hours, ahead 96 hours). ------acetaminophen (TYLENOL) tablet 650 mg #[id number] Admin Amount: 2 Tab (2 x 325 mg Tab) Ordered Dose: 650 mg Ro red cliff: Oral Freq: EVERY 4 HOURS NEEDED Start Date: 10/29/19 No administration times (back 96 hours, ahe ad 96 hours).Maxwell Bray MR#: [id number] * Rm: 416-02Ht: 5' 7" Wt: 3 00 lb Code: Full Code Iso:Diagnosis:Bipolar disorder with severe depression (HCC) [F31.4]Allergies : No Known Allergies -------- Current as of: 10/29/19 1556 ---enoxaparin (LOVENOX) injection 40 mg #[id number] Admin Amount: 0.4 mL = 40 mg of 40 mg/0.4 mL Ordered Dose: 40 mg Route: SubCUTAneous Freq: EVERY 24 HOURS Start Date: 10/29/19 Administration times (back 96 hours, ahead 96 hours): 10/29/19: 1455 10/30/19: 1455 10/31/19: 14511/01/19: 14511/02/19 : 1455 ---0.9% sodium chloride infusion #[id number] Ordered Dose: 100 mL/hr Route: IntraVENous Freq: CONTINUOUS Start Date: 10/29/19 Rate: 100 mL/hr Duration: Administration times (back 96 hours, ahead 96 hours): 10/29/19: 1455 ED Current OP MedicationsVraylar 3 mg ca psuleSig:Take 3 mg by mouth nightly.Dispense Amount:Start Date:09/03/2019End Date:Doc. Provider: Clarice Helmstriptyline (ELAVIL) 150 mg tabletSig:Take 150 mg by [...] Supporting Document(s ) ID Date Data Source [id number] 10/29/2019 03:54:13 PM EDT [facility] History & PhysicalBrian Anam Bray [...] of morbidity or mortality cardiac cath at [facility] approx 6-8 months ag o Other [...] week Gets together: Once a week Attends islam service: More than 4 times per year [...] trast. Sagittal and coronal reconstruction was performed.Utilizing nursing services manager alg orithm the examination was performed to [...] QTC Calculation (Bezet) 446 ms Calculated P [place] 53 degrees Calculat ed R [place] 68 degrees Calculated T [place] 0 degrees Diagnosis Sinus tachycardiaProl onged MO [...] lydia: 10/29/19 10:45 AMResult Value Ref Range Paa-[place] level <0.20 (L) 0.6 - 1.2 MMOL/L GLUCOSE, POC Collection Time: 10/29/19 11:26 AMResult Value Ref Range Glucose, bedsid e 102 65 - 110 MG/DLAll lab results for the last 24 hours reviewed.Assessment/PlanAc tive Problems: Bipolar disorder with severe depression (HCC) (10/29/2019) possible [place] dvertentoverdoseGeorge MD Corey Name Value Range Interpretation Code Description Data Melani rce(s) Supporting Document(s ) ID Date Data Source [id number] 10/29/2019 03:42:10 PM EDT [facility] TRANSFER - OUT REPORT:Verbal report [...] Supporting Document(s ) ID Date Data Source [id number] 10/29/2019 02:28:59 PM EDT [facility] The history is provided by [...] morbidity or mortal ity cardiac cath at [facility] approx 6-8 months ago Other unknown [...] week Gets together: Once a week Attends islam service: More than 4 times per year [...] QTC Calculation (Bezet) 446 ms Calculated P [place] 53 degr ees Calculated R [place] 68 degrees Calculated T [place] 0 degrees Diagnosis Sinus tachycar diaProlonged MO [...] lydia: 10/29/19 10:45 AMResult Value Ref Range [place] level <0.20 (L) 0.6 - 1.2 MMOL/L [...] Sagittal and coronalreconstru ction was performed. Utilizing nursing services manager algorithm the examinationwas performed t o optimize [...] Supporting Document(s ) ID Date Data Source [id number] 10/29/2019 12:17:28 PM EDT [facility] XR CHEST PORTCLINICAL INDICATION PROVIDE [...] Supporting Document(s ) ID Date Data Source [id number] 10/29/2019 11:55:57 AM EDT [facility] CT HEAD WO CONTClinical data: amsPriors: 03/13/2015.Technique: Multiple axial images were obtained from the skullbase to the vertexwithout administration of intravenous contrast. Sagittal and coronalreconstru ction was performed. Utilizing nursing services manager algorithm the examinationwas performed t o optimize [...] Supporting Document(s ) ID Date Data Source [id number] 10/29/2019 11:48:34 AM EDT [facility] Name Value Range Interpretation Description Data Sup porting Code Source(s) Document(s ) Glucose 102 MG/DL 65-110 [facility] - Good [Mass/volume] Mandaen in Blood by [facility] Automated test strip ID Date Data Source [id number] 10/29/2019 10:49:56 AM EDT [facility] Patient lethargic, BIBA from home for le thargy and slurred speech. Name Value Range Interpretation Code Description Data Melani rce(s) Supporting Document(s ) ID Date Data Source [id number] 10/29/2019 11:29:33 AM EDT [facility] Name Value Range Interpretation Code Description Data Supporting Source(s) Document(s ) Paa-Ko 0.6-1.2 Below low normal [facility] - Good [Moles/volum Mandaen e] in Serum Hospital or Plasma ID Date Data Source [id number] 10/29/2019 11:28:52 AM EDT [facility] Name Value Range Interpretation Description Data Sup porting Code Source(s) Document(s ) Sodium 136 136-145 [facility] - Good [Moles/volume] mmol/L Mandaen in Serum or Hospital Plasma Potassium 4.4 3.5-5.1 [facility] - [facility] [Moles/volume] mmol/L Mandaen in Serum or Hospital Plasma Chloride 106 98-107 [facility] - Good [Moles/volume] mmol/L Mandaen in Serum or Hospital Plasma Carbon 22 21-32 [facility] - Good dioxide, total mmol/L Mandaen [Moles/volume] Hospital in Serum or Plasma Anion gap in 12 10-20 [facility] - Good Serum or mmol/L Mandaen Plasma Hospital Glucose 108 74-106 Above high normal [facility] - Good [Mass/volume] mg/dL Mandaen in Serum or Hospital Plasma Urea nitrogen 16 mg/dL 7-18 [facility] - Good [Mass/volume] Mandaen in Serum or Hospital Plasma Creatinine 1.05 0.70-1.3 [facility] - Good [Mass/volume] mg/dL 0 Mandaen in Serum or Hospital Plasma Glomerular >60 [facility] - Good filtration Mandaen rate/1.73 sq M Hospital predicted among blacks [Volume Rate/Area] in Serum or Plasma by Creatinine-bas ed formula (MDRD) Glomerular >60 [facility] - Good filtration Mandaen rate/1.73 sq M Hospital predicted among non-blacks [Volume Rate/Area] in Serum or Plasma by Creatinine-bas ed formula (MDRD) (NOTE)Estimated GFR is calculated using the Modification of Diet in RenalDisease (MDRD) Study equation, reported for both Americans(GFRAA) and non- Americans (GFRNA), and normalized to 1.7 8b3haae surface area. The physician must decide which [...] 8.5-10.1 [facility] - Good Serum or Plasma [facility] ital Bilirubin.total 0.7 mg/dL 0.2-1.0 [facility] - Good [Mass/volume] in Serum or [facility] Plasma Alanine aminotransferase 30 U/L 13-61 [facility] - Good [Enzymatic activity/volume] [facility] in Serum or Plasma Aspartate aminotransferase 27 U/L 15-37 [facility] - Good [Enzymatic activity/volume] [facility] in Serum or Plasma by With P-5'-P Alkaline phosphatase 139 U/L 45-117 Above high [facility] - Good [Enzymatic activity/volume] normal [facility] in Serum or Plasma Protein [Mass/volume] in 7.6 g/dL 6.4-8.2 [facility] - Good Serum or Plasma [facility] ital Albumin [Mass/volume] in 3.9 g/dL 3.5-4.7 [facility] - Good Serum or Plasma by [facility] Bromocresol purple (BCP) dye binding method Globulin [Mass/volume] in 3.7 g/dL 1.7-4.7 [facility] - Good Serum by calculation [facility] Albumin/Globulin [Mass 1.0 0.7-2.8 [facility] - Good Ratio] in Serum or Plasma [facility] ID Date Data Source [id number] 10/29/2019 11:20:29 AM EDT [facility] Name Value Range Interpretation Description Data Sup porting Code Source(s) Document(s ) aPTT in 22.2 SEC 21.0-28. [facility] - [facility] Platelet poor 0 Mandaen plasma by [facility] Coagulation assay Therapeutic Range = 42.0-60.0 secs ID Date Data Source [id number] 10/29/2019 11:20:29 AM EDT [facility] Name Value Range Interpretation Description Data Sup porting Code Source(s) Document(s ) Prothrombin 10.3 sec 9.4-11.1 [facility] - Good time (PT) [facility] INR in 1.0 0.8-1.2 [facility] - Good Platelet poor Mandaen plasma by [facility] Coagulation assay ID Date Data Source [id number] 10/29/2019 11:11:49 AM EDT [facility] Name Value Range Interpretation Description Data Sup porting Code Source(s) Document(s ) Leukocytes 8.1 K/uL 4.8-10.6 [facility] - [#/volume] in Good Blood by Mandaen Automated count [facility] Erythrocytes 5.52 4.70-6.0 [facility] - [#/volume] in M/uL 0 Good Blood by [facility] count [facility] Hemoglobin 16.7 14.0-18. [facility] - [Mass/volume] in g/dL [address] [facility] Hematocrit 51.8 % 42.0-52. [facility] - [Volume 0 Good Fraction] of Mandaen Blood by Hospital Automated count Erythrocyte mean 93.8 FL 81.0-94. [facility] - corpuscular 0 Good volume [Entitic Mandaen volume] by Hospital Automated count Erythrocyte mean 30.3 PG 27.0-35. [facility] - corpuscular 0 Good hemoglobin Mandaen [Entitic mass] [facility] by Automated count Erythrocyte mean 32.2 30.7-37. [facility] - corpuscular g/dL 3 Good hemoglobin [facility] [Mass/volume] by Automated count Erythrocyte 13.2 % 11.5-14. [facility] - distribution 0 Good width [Ratio] by Mandaen Automated count Hospital Platelets 193 K/uL 130-400 [facility] - [#/volume] in [facility] Blood by Mandaen Automated count [facility] Platelet mean 8.6 FL 9.2-11.8 Below low normal [facility] - volume [Entitic Good volume] in Blood Mandaen by Automated Hospital count Nucleated 0.0 PER 0 [facility] - erythrocytes/100 100 WBC Good leukocytes Mandaen [Ratio] in Blood [facility] Nucleated 0.00 0.0-0.01 [facility] - erythrocytes K/uL Good [#/volume] in [facility] Segmented 79 % 48.0-72. Above high normal [facility] - neutrophils/100 0 Good leukocytes in [facility] Lymphocytes/100 10 % 18.0-40. Below low normal [facility] - leukocytes in 0 [facility] Monocytes/100 8 % 2.0-12.0 [facility] - leukocytes in [facility] Eosinophils/100 1 % 0.0-7.0 [facility] - leukocytes in [facility] Basophils/100 0 % 0.0-3.0 [facility] - leukocytes in [facility] Immature 1 % 0-0.5 Above high normal [facility] - granulocytes/100 Good leukocytes in [facility] by Hospital Automated count Segmented 6.4 K/UL 2.3-7.6 [facility] - neutrophils Good [#/volume] in [facility] Lymphocytes 0.8 K/UL 0.9-4.2 Below low normal [facility] - [#/volume] in [facility] Monocytes 0.7 K/UL 0.1-1.7 [facility] - [#/volume] in [facility] Eosinophils 0.1 K/UL 0.0-1.0 [facility] - [#/volume] in [facility] Basophils 0.0 K/UL 0.0-0.4 [facility] - [#/volume] in [facility] Immature 0.1 K/UL 0.0-0.17 [facility] - granulocytes Good [#/volume] in [facility] by Hospital Automated count Differential [facility] - cell count Good method - Blood [facility] ID Date Data Source [id number] 09/15/2019 09:44:01 AM EDT [facility] Clinical Indications/Reason For Exam: pa [...] Supporting Document(s ) ID Date Data Source [id number] 09/15/2019 09:41:40 AM EDT [facility] THORACIC SPINE 4 views.History: Pain.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 Signing date/time: 09/15/2019 9:41 AMSigned by: CURTIS VARMA Name Value Range Interpretation Code Description Data Melani rce(s) Supporting Document(s ) ID Date Data Source [id number] 09/15/2019 09:40:53 AM EDT [facility] Clinical indications with reason for [...] Supporting Document(s ) ID Date Data Source [id number] 08/17/2019 08:25:20 AM [facility] History: [...] Supporting Document(s ) ID Date Data Source [id number] 08/16/2019 11:12:22 PM [facility] The [...] m orbidity or mortality cardiac cath at [facility] approx 6-8 months ago Other unknown [...] e Gets together: Not on file Attends islam service: Not on file 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 [...] Calculation (Bezet) 429 ms Ca lculated P [place] 36 degrees Calculated R [place] 77 degrees Calculated T [place] -24 degrees Diagnosis Sinus tachycardiaBorderline T abnormalities, [...] Time: 08/16/19 9:00 PMResult Value Ref Range Paa-Ko level 0.21 (L) 0.6 - 1.2 MMOL/LEKG: sinus tach ycardia, rate 109Radiology:CXR: no acute findings<EMERGENCY DEPARTMENT CASE [facility]>Impression/Differential Diagnosis: Allergic reaction allergic, drug reactio n,ACS, pulmonary embolismED Course: Patient presents short of breath and mildly tach ycardic complainingof new onset rash to face anterior chest and posterior chest.Plan: Labs, chest x-ray, EKG, troponin, d-dimer, prednisone, Pepcid, zhaxilmmvjo86:04 PM patient verbalizes relief of symptoms rash has faded. He denies chestpain he denie s shortness of breath.Patient was advised that we cannot rule out allergic drug re action as he isrecently just restarted taking his lithium. Patient advised to discuss takinglithium with his psychiatrist as soon as possible.Patient reassessed at [facility] by me. Feels better at present, wants to go home.Patient was told to follow up with the primary doctor in 1-2 days and return [facility] ED for any worsening severe pain, vomiting, [...] time of disposition: patriciaI have reviewed the [facility] medications:Prior to Admission medicationsMedication Sig Start [...] 6 mg by mouth daily. 07/07/19 Yes Maura Rolonobenzaprine (FLEXERIL) 10 mg tablet Take 1 Tab [...] 36N*ENCOUNTER 08/16/2019 10:46:05 PM EST [facility] - [facility] [id number] [facility] EMERGENCY DEPARTMENT [address] [place] [id number] [phone] Maxwell Bray (Male) [id number] I 3 ED Dispo:DISCHARGE Chief Complaint: Allergic Reaction Diagnosis: Allergic reaction, initial encounter [] Allergic reaction to drug, in itial encounter [] Current Providers: Attending: Javier Quezada Nurse Practitioner: Javier Ward Primary Nurse: HARINDER AcuñaN: [id number] Print Group [phone] - [facility] Med[facility] MrUTRN: [phone] Print Group [phone] - [facility] Age Sex 1970 AGE 49 SEX Male Primary Care Provider: Ritika Canas MD Eaejflfaq: (No Known Allergies)Date Reviewed: 08/16/2019Reviewed by: Zahraa Prince RN - Review CompleteED Provider Notes: No not es of this type exist for this encounter.ED Orders BUPROPION XL 300 MG 24 HR TAB [#[id number]] Priority: Routine Class: Historical Med LITHIUM CARBONATE 150 MG CAP [#[id number]] Priority: Routine Class: Historical Med FAMOTIDINE 20MG + NS 10 ML IV [#[id number]] Priority: STAT Class: Normal H2RA INDICATION -> Adverse reaction/Anaphylaxis SODIUM CH LORIDE 0.9 % IV [#[id number]] Priority: STAT Class: Normal METHYLPREDNISOLONE (PF) 125 MG/2 ML * [#[id number]] Priority: STAT Class: Normal ASPIRIN 81 MG CHEWABLE TAB [# [id number]] Priority: STAT Class: Normal PREDNISONE 50 MG TAB [#[id number]] Bridgette ority: Routine Class: Normal [id number] BONE PULLER - ED ONLY [#[id number]] Priority: STAT C lass: Hospital Performed Standing Order Information Remaining Occurrences:0/1 Interval:Contin uous Last released:08/16/2019 Released orders: Sat Aug 16, 2019 9:02 PM by: Javier POLLOCK Type: -> Bedside [id number] OBTAIN OLD EKG [#[id number]] Priority: Routi ne Class: Hospital Performed Standing Order Information Remaining Occurrences:0/1 Inter haile:ONE TIME Last released:08/16/2019 Released orders: Sat Aug 16, 2019 9:02 PM by: INDIO WARD [id number] PULSE OXIMETRY CONTINUOUS [#[id number]] Priority: STAT Class: H ospital Performed Standing Order Information Remaining Occurrences:0/1 Interval:CONTIN UOUS Last released:08/16/2019 Released orders: Sat Aug 16, 2019 9:02 PM by: Javier POLLOCK [id number] BONE PULLER - ED ONLY [#[id number]] Priority: STAT Class: Hospital Perfo rmed Type: -> Bedside Released on: 08/16/2019 9:02 PM [id number] OBTAIN OLD EKG [#[id number]] Priority: STAT Class: Hospital Performed Released on: 08/16/2019 9:02 PM [id number] PULSE OXIMETRY CONTINUOUS [#[id number]] Priority: STAT Class: Hospital Performed Relea sed on: 08/16/2019 9:02 PM [id number] DIET NPO [#[id number]] Priority: STAT Cla ss: Hospital Performed Standing Order Information Remaining Occurrences:0/1 Interval:DIET E FFECTIVE NOW Last released:08/16/2019 Released orders: Sat Aug 16, 2019 9:02 PM by: INDIO WARD NPO options: -> With Meds [id number] DIET NPO [#[id number]] Priority: STAT Class: Hospital Performed NPO options: -> With Meds Released on: 08/16/2019 9:02 PM [id number] SALINE LOCK IV [#[id number]] Priority: STAT Class: Hospital Performe d Standing Order Information Remaining Occurrences:0/1 Interval:ONE TIME Last released: 08/16/2019 Released orders: Sat Aug 16, 2019 9:02 PM by: INDIO POLLOCK [id number] SALIN E LOCK IV [#[id number]] Priority: STAT Class: Hospital Performed Released on : 08/16/2019 9:02 PM [id number] METABOLIC PANEL, COMPREHENSIVE [#[id number]] Priority: STAT Class: E R Collect Standing Order Information Remaining Occurrences:0/1 Interval:ONE TIME Last r eleased:08/16/2019 Released orders: Sat Aug 16, 2019 9:02 PM by: INDIO POLLOCK [id number] CBC WITH AUTOMATED DIFF [#[id number]] Priority: STAT Class: ER Collect Standing Order Info rmation Remaining Occurrences:0/1 Interval:ONE TIME Last released:08/16/2019 Released orders: Sat Aug 16, 2019 9:02 PM by: INDIO POLLOCK [id number] TROPONIN I [#[id number]] Priority: STAT Class: ER Collect Standing Order Information Remaining Occurre nces:0/1 Interval:ONE TIME Last released:08/16/2019 Released orders: Sat Aug 16 9:02 PM by: INDIO POLLOCK [id number] MAGNESIUM [#[id number]] Priorit y: STAT Class: ER Collect Standing Order Information Remaining Occurrences:0/1 Inter haile:ONE TIME Last released:08/16/2019 Released orders: Sat Aug 16, 2019 9:02 PM by: INDIO WARD [id number] D DIMER [#[id number]] Priority: STAT Class: E R Collect Standing Order Information Remaining Occurrences:0/1 Interval:ONE TIME Last r eleased:08/16/2019 Released orders: Sat Aug 16, 2019 9:02 PM by: INDIO POLLOCK [id number] METABOLIC PANEL, COMPREHENSIVE [#[id number]] Priority: STAT Class: ER Collect Specimen Source: Plas ma Specimen Collected: 08/16/2019 9:00 PM Resulting Agency: [facility] Test ID: MPL Released on: 08/16/2019 9:02 PM [id number] CBC WITH AUTOMATED DIFF [#[id number]] Prior ity: STAT Class: ER Collect Specimen Source: Whole Blood Specimen Collected: 08/16/2019 9:00 PM Resultin g Agency: [facility] Test ID: [id number] Released on: 08/16/2019 9:02 PM [id number] TROPONIN I [#[id number]] Priority: STAT Class: ER Collect Specimen Source : Plasma Specimen Collected: 08/16/2019 9:00 PM Resulting Agency: [facility] Test ID: TROIP Released on: 08/16/2019 9:02 PM [id number] MAGNESIUM [#[id number]] Priority: STAT Class: ER Collect Specimen Source: Plasma Specimen Collected: 08/16/2019 9:00 PM Resultin g Agency: [facility] Test ID: MGPL Released on: 08/16/2019 9:02 PM [id number] D DIMER [#[id number]] Priority: STAT Class: ER Collect Specimen Source : Plasma Specimen Collected: 08/16/2019 9:00 PM Resulting Agency: [facility] Test ID: [id number] Released on: 08/16/2019 9:02 PM [id number] LITHIUM [#[id number]] Priority: STAT Class: ER Collect Standing Order Information Remaining Occurrences:0/1 Inter haile:ONE TIME Last released:08/16/2019 Released orders: Sat Aug 16, 2019 9:02 PM by: INDIO WARD [id number] LITHIUM [#[id number]] Priority: STAT Class: E R Collect Specimen Source: Serum Specimen Collected: 08/16/2019 9:00 PM Resulting Agency: [facility] Test ID: LI Released on: 08/16/2019 9:02 PM [id number] EKG, 12 LEAD, INITIAL [#[id number]] Priority: STAT Class: Hospital Performed Standing Order Information Remainin g Occurrences:0/1 Interval:ONE TIME Last released:08/16/2019 Released orders : Sat Aug 16, 2019 9:02 PM by: INDIO POLLOCK Reason for Exam: -> Chest Pain [id number] EKG, 12 LEAD, INITIAL [#[id number]] Priority: STAT Class: Hospital Performed Resulting Age ncy: GSH MUSE Test ID: [id number] Reason for Exam: -> Chest Pain Released on: 08/16/2019 9:02 PM [id number] XR CHEST PORT [#[id number]] Priority: STAT Class: Hospital Performed Stand ing Order Information Remaining Occurrences:0/1 Interval:ONE TIME Last released:0 08/16/2019 Released orders: Sat Aug 16, 2019 9:02 PM by: INDIO POLLOCK Reason for Exam -> Chest Pain [id number] XR CHEST PORT [#[id number]] Priority: STAT Class: H ospital Performed Resulting Agency: [facility] Test ID: [id number] Reason for Exam -> Chest Pain Rele ased on: 08/16/2019 9:02 Maxwell Corona MR#: [id number] * Rm: [id number] Ht: 5' 10" Wt: 280 lb Code: Prior Iso:Diagnosis:Allergies: No Known Allergies -------- Current as of: 08/16/192245 GI=Given IC=IV Complet ed NB=New Bag --aspirin (ASPIRIN) tablet 325 mg #[id number] Admin Amount: 1 Tab (1 x 325 mg Tab) Ordered Dose: 325 mg Route: Oral Freq: ONCE Start Date: 12/24/13 No administration times (back 96 hours, ahead 96 hours). ------diphenhydrAMINE (BENADRYL) capsule 50 mg #[id number] Admin Amount: 1 Cap (1 x 50 mg Cap) Ordered Dose: 50 mg Route: Ora l Freq: NOW Start Date: 12/24/13 No administration times (back 96 hours, ahe ad 96 hours). ------diazepam (VALIUM) tablet 5 mg #[id number] Admin Amount: 1 Tab (1 x 5 mg Tab) Ordered Dose: 5 mg Route: Oral Freq: ON CE Start Date: 12/24/13 No administration times (back 96 hours, ahead 96 hours). ------lidocaine (XYLOCAINE) 10 mg/mL (1 %) injection 1-30 mL #[id number] Admin Amount: 1-30 mL Ordered Dose: 1-30 mL Route: IntraDERMal Freq: ONCE Start Date: 12/24/13 No administration times (back 96 hours, ahead 96 hours). ------heparin (PF) 2 units/ml in NS infusion 2,000 Units #[id number] Admin Amount: 1,000 mL = 2,000 Units of 2 Units/mL Ordered Dose: 1,000 mL Ro red cliff: Irrigation Freq: ONCE Start Date: 12/24/13 No administration times (back 96 hours, ahead 96 hours). ------heparinized saline 2 units/mL infusion 1,000 Units #[id number] Admin Amount: 500 mL = 1,000 Units of 2 Units/mL Ordered Dose: 500 mL Ro red cliff: IntraarTERial Freq: ONCE Start Date: 12/24/13 No administration times (back 96 hours, ahead 96 hours). ------0.9% sodium chloride infusion #[id number] Ordered Dose: 75 mL/hr Route: IntraVENous Freq: CONTINUOUS Start Date: 12/24/13 Rate: 75 mL/hr Duration: No administration times (back 96 hours, ahead 96 hours). ------ioversol (OPTIRAY) 320 mg iodine/mL contrast injection 1-100 mL #[id number] Admin Amount: 1-100 mL Ordered Dose: 1-100 mL Route: IntraVENous Freq: RAD O NCE Start Date: 12/24/13 No administration times (back 96 hours, ahead 96 hours).Maxwell Bray MR#: [id number] * Rm: [id number]: 5' 10" Wt: 280 lb Co de: Prior Iso:Diagnosis:Allergies: No Known Allergies -------- Current as of: 08/16/192245 GI=Given IC=IV Complet ed NB=New Bag --gadobutrol (GADAVIST) contrast solution 1-10 mL #[id number] Admin Amount: 1-10 mL Ordered Dose: 1-10 mL Route: IntraVENous Freq: RAD O NCE Start Date: 01/13/14 No administration times (back 96 hours, ahead 96 hours). ------sodium chloride (NS) flush 5-10 mL #[id number] Admin Amount: 5-10 mL Ordered Dose: 5-10 mL Route: IntraVENous Freq: RAD ONCE Start Date: 01/13/14 No administration times (back 96 hours, ahead 96 hours). ------sodium chloride (NS) 0.9 % flush #[id number] Ordered Dose: Route: Freq: Start Date: 01/13 No administration times (back 96 hours, ahead 96 hours). ------morphine injection 2 mg #[id number] Admin Amount: 1 mL = 2 mg of 2 mg/mL Ordered Dose: 2 mg Route: IntraVENous Freq: NOW Start Date: 03/13/15 No administration times (back 96 hours, ahe ad 96 hours). ------influenza vaccine (4 yr+)(PF) (FLUCELVAX QUAD) inj ection 0.5*#[id number] Admin Amount: 0.5 mL Ordered Dose: 0.5 mL Route: IntraMUSCular Freq: PRIOR TO DISCHARGE Start Date: 03/30/16 No administration times (back 96 hours, ahead 96 hours). ------oxyCODONE-acetaminophen (PERCOCET) 5-325 mg per tablet 1 Tab #[id number] Admin Amount: 1 Tab Ordered Dose: 1 Tab Route: Oral Freq: NOW Start Date: 09/07/17 No administration times (back 96 hours, ahead 96 hours). ------barium sulfate (READICAT) 2.1 % (w/v), 2.0 % (w /w) oral suspension 9*#[id number] Admin Amount: 900 mL Ordered Dose: 900 mL Route: Oral Delgado q: RAD ONCE Start Date: 10/15/17 No administration times (back 96 hours, ahead 96 hours). ------iopamidol (ISOVUE 300) 61 % contrast injection 100 mL #[id number] Admin Amount: 100 mL Ordered Dose: 100 mL Route: IntraVENous Freq: RAD ONC E Start Date: 10/15/17 No administration times (back 96 hours, ahead 96 hours).Maxwell Bray MR#: [id number] * Rm: [id number]: 5' 10" Wt: 280 lb Code: Prior Iso:Diagnosis:Allergies: No Known Allergies -------- Current as of: 08/16/192245 GI=Given IC=IV Complet ed NB=New Bag --risperiDONE (RisperDAL m-tabs) disintegrating tablet 1 mg #[id number] Admin Amount: 1 Tab (1 x 1 mg Tab) Ordered Dose: 1 mg Route: Oral Freq: ONCE Start Date: 12/24/17 No administration times (back 96 hours, ahead 96 hours). ------ALPRAZolam (XANAX) tablet 2 mg #[id number] Admin Amount: 4 Tab (4 x 0.5 mg Tab) Ordered Dose: 2 mg Route: Ora l Freq: NOW Start Date: 12/24/17 No administration times (back 96 hours, ahe ad 96 hours). ------lamoTRIgine (LaMICtal) tablet 100 mg #[id number] Admin Amount: 1 Tab (1 x 100 mg Tab) Ordered Dose: 100 mg Route: Oral Delgado q: ONCE Start Date: 12/24/17 No administration times (back 96 hours, ahead 96 hours). ------OLANZapine (ZyPREXA zydis) disintegrating tablet 5 mg #[id number] Admin Amount: 1 Tab (1 x 5 mg Tab) Ordered Dose: 5 mg Route: Oral Delgado q: ONCE Start Date: 12/25/17 No administration times (back 96 hours, ahead 96 hours). ------LORazepam (ATIVAN) tablet 2 mg #[id number] Admin Amount: 4 Tab (4 x 0.5 mg Tab) Ordered Dose: 2 mg Route: Ora l Freq: NOW Start Date: 12/25/17 No administration times (back 96 hours, e ad 96 hours). ------LORazepam (ATIVAN) injection 1 mg #[id number] Admin Amount: 0.5 mL = 1 mg of 2 mg/mL Ordered Dose: 1 mg Route: Int Katherin Freq: NOW Start Date: 12/25/17 No administration times (back 96 hours, e ad 96 hours). ------barium sulfate (EZ PAQUE) 96 % (w/w) contrast suspension 17 6 g #[id number] Admin Amount: 176 g Ordered Dose: 176 g Route: Oral Freq: RAD ONCE Start Date: 08/02/18 No administration times (back 96 hours, ahead 96 hours). ------barium sulfate (EZ PAQUE) 96 % (w/w) contrast s uspension 176 g #[id number] Admin Amount: 176 g Ordered Dose: 176 g Route: Oral Delgado q: RAD ONCE Start Date: 08/02/18 No administration times (back 96 hours, ahead 96 hours).Luisito Maxwell donovan MR#: [id number] * Rm: [id number]: 5' 10" Wt: 280 lb Co de: Prior Iso:Diagnosis:Allergies: No Known Allergies -------- Current as of: 08/16/192245 GI=Given IC=IV Complet ed NB=New Bag --aspirin chewable tablet 162 mg #[id number] Admin Amount: 2 Tab (2 x 81 mg Tab) Ordered Dose: 162 mg Route: Oral Freq: NOW Start Date: 08/10/19 No administration times (back 96 hours, ahead 96 hours). ------famotidine (PF) (PEPCID) 20 mg in 0.9% sodium chloride 10 mL inje cti*#[id number] Admin Amount: 20 mg Ordered Dose: 20 mg Route: IntraVENous Freq: EVERY 12 H OURS Start Date: 08/16/19 Administration times (back 96 hours, ahead 96 hours): 08/16/19: 2119G I 08/17/19: 89908/18/19: 89908/19/19: 89908/20/19: 899 2099 ---0.9% sodium chloride infusion 1,000 mL #[id number] Admin Amount: 1,000 mL Ordered Dose: 1,000 mL Route: IntraVENous Freq: ONC E Start Date: 08/16/19 Rate: 1,000 mL/hr Duration: Administration times (back 96 hours, ahead 96 hours): 08/16/19: 2119NB 2245IC -----methylPREDNISolone (PF) (Solu-MEDROL) injection 125 mg #[id number] Admin Amount: 2 mL = 125 mg of 125 mg/2 mL Ordered Dose: 125 mg Route: Int raVENous Freq: NOW Start Date: 08/16/19 Administration times (back 96 hours, ahe ad 96 hours): 08/16/19: 2118GI -----aspirin chewable tablet 162 mg #[id number] Admin Amount: 2 Tab (2 x 81 mg Tab) Ordered Dose: 162 mg Route: Oral Delgado q: NOW Start Date: 08/16/19 Administration times (back 96 hours, ahead 96 hours): 08/16/19: ED Current OP MedicationsbuPROPion XL (WELLBUTRIN XL) 300 mg XL tabletSig:Take 300 mg by mouth every morning.Dispense Amount:Start Date:End Date:Doc. Provider : Palu Bradford MDlithium carbonate 150 mg capsuleSig:Take 300 mg by mouth three (3) times daily.Dispense Irene unt:Start Date:End Date:Doc. Provider: Paul Bradford MDpredniSONE [...] Canas M DDetails:In 2 daysComments:Contact Info:[address] [facility] [address] MOBSuSutter Davis [phone]-up With:[facility] EMERGENCY DEPARTMENTDetails:Comments:As needed, If symptoms worsenContact Info:[address] [facility] [id number] Name Value Range Interpretation Code Description Data Melani rce(s) Supporting Document(s ) ID Date Data Source [id number] 08/16/2019 10:45:45 PM [facility] IV site clean/dry/intact, gauze dressing applied. Pt received written and verbaldischarge instructions. Verbalize d understanding of same. Ambulated out of EDwith steady gait and in no distress. Name Value Range Interpretation Code Description Data Melani rce(s) Supporting Document(s ) ID Date Data Source [id number] 08/16/2019 09:58:14 PM [facility] Name Value Range Interpretation Description Data Sup porting Code Source(s) Document(s ) Paa-Ko 0.21 0.6-1.2 Below low normal [facility] Good [Moles/volu MMOL/L [facility]] in Hospital Serum or Plasma ID Date Data Source [id number] 08/16/2019 09:52:19 PM [facility] Name Value Range Interpretation Code Description Data Melani rce(s) Supporting Document(s ) Fibrin [facility]500 [facility]U Mandaen [Mass/volume] [facility] in Platelet poor plasma (NOTE)Combination of a D-Dimer result wi thin the reference range and a lowclinical pretest probability has good negative pr edictive value fordeep venous thrombosis.If results are utilized for VTE evaluation, <500 ng/ml is consideredto be negative. ID Date Data Source [id number] 08/16/2019 09:44:39 PM EST [facility] Name Value Range Interpretation Description Data Sup porting Code Source(s) Document(s ) Troponin 0.00-0.05 [facility] - Good I.cardiac Mandaen [Mass/volume Hospital ] in Serum or Plasma [...] to 1.50 ng/mL ID Date Data Source [id number] 08/16/2019 09:44:39 PM EST [facility] Value Range Interpretation Description Data Sup porting Code Source(s) Document(s ) Sodium 138 136-145 [facility] - Good [Moles/volume] mmol/L Manda[facility] in Serum or Hospital Plasma Potassium 3.4 3.5-5.1 Below low normal [facility] - Good [Moles/volume] mmol/L Manda[facility] in Serum or Hospital Plasma Chloride 108 98-107 Above high normal [facility] - Good [Moles/volume] mmol/L Manda[facility] in Serum or Hospital Plasma Carbon 20 21-32 Below low normal [facility] - Good dioxide, total mmol/L Mandaen [Moles/volume] Hospital in Serum or Plasma Anion gap in 14 10-20 [facility] - Good Serum or mmol/L Manda[facility] Plasma Hospital Glucose 105 74-106 [facility] - Good [Mass/volume] mg/dL [facility] in Serum or Hospital Plasma Urea nitrogen 20 mg/dL 7-18 Above high normal [facility] - Good [Mass/volume] [facility]anda[facility] in Serum or Hospital Plasma Creatinine 0.90 0.70-1.3 [facility] - Good [Mass/volume] mg/dL 0 [facility] in Serum or Hospital Plasma Glomerular >60 [facility] - Good filtration Mandaen rate/1.73 sq M Hospital predicted among blacks [Volume Rate/Area] in Serum or Plasma by Creatinine-bas ed formula (MDRD) Glomerular >60 [facility] - Good filtration Mandaen rate/1.73 sq M Hospital predicted among non-blacks [Volume Rate/Area] in Serum or Plasma by Creatinine-bas ed formula (MDRD) (NOTE)Estimated GFR is calculated using the Modification of Diet in RenalDisease (MDRD) Study equation, reported for both Americans(GFRAA) and non- Americans (GFRNA), and normalized to 1.7 8b9ublg surface area. The physician must decide which [...] normal [facility] - Good Serum or Plasma [facility] Hosp ital Bilirubin.total 0.3 mg/dL 0.2-1.0 [facility] - Good [Mass/volume] in Serum or [facility] Plasma Alanine aminotransferase 37 U/L 13-61 [facility] - Good [Enzymatic activity/volume] [facility] in Serum or Plasma Aspartate aminotransferase 22 U/L 15-37 [facility] - Good [Enzymatic activity/volume] [facility] in Serum or Plasma by With P-5'-P Alkaline phosphatase 98 U/L 45-117 [facility] - G ood [Enzymatic activity/volume] [facility] in Serum or Plasma Protein [Mass/volume] in 7.0 g/dL 6.4-8.2 [facility] - Good Serum or Plasma [facility] Hosp ital Albumin [Mass/volume] in 3.7 g/dL 3.5-4.7 [facility] - Good Serum or Plasma by [facility] ospital Bromocresol purple (BCP) dye binding method Globulin [Mass/volume] in 3.3 g/dL 1.7-4.7 [facility] S - Good Serum by Merged with [facility] Albumin/Globulin [Mass 1.1 0.7-2.8 [facility] - Good Ratio] in Serum or Plasma [facility] ID Date Data Source [id number] 08/16/2019 09:44:39 PM EST [facility] - Good [facility] Name Value Range Interpretation Description Data Sup porting Code Source(s) Document(s ) Magnesium 2.3 mg/dL 1.6-2.6 [facility] - Good [Mass/volume] Mandaen in Serum or Hospital Plasma ID Date Data Source [id number] 08/16/2019 09:23:23 PM EST [facility] - Good [facility] Name Value Range Interpretation Description Data Sup porting Code Source(s) Document(s ) Leukocytes 7.6 K/uL 4.8-10.6 [facility] - [#/volume] in Good Blood by Mandaen Automated count [facility] Erythrocytes 4.97 4.70-6.0 [facility] - [#/volume] in M/uL 0 Good Blood by Mandaen Automated count [facility] Hemoglobin 15.2 14.0-18. [facility] - [Mass/volume] in g/dL [address] [facility] Hematocrit 45.0 % 42.0-52. [facility] - [Volume 0 Good Fraction] of Mandaen Blood by Hospital Automated count Erythrocyte mean 90.5 FL 81.0-94. [facility] - corpuscular 0 Good volume [Entitic Mandaen volume] by Hospital Automated count Erythrocyte mean 30.6 PG 27.0-35. [facility] - corpuscular 0 Good hemoglobin Mandaen [Entitic mass] [facility] by Automated count Erythrocyte mean 33.8 30.7-37. [facility] - corpuscular g/dL 3 Good hemoglobin Mandaen concentration [facility] [Mass/volume] by Automated count Erythrocyte 13.0 % 11.5-14. [facility] - distribution 0 Good width [Ratio] by [facility] count [facility] Platelets 183 K/uL 130-400 [facility] - [#/volume] in Good Blood by [facility] Platelet mean 8.5 FL 9.2-11.8 Below low normal [facility] - volume [Entitic Good volume] in [facility] by Automated Hospital count Nucleated 0.0 PER 0 [facility] - erythrocytes/100 100 WBC Good leukocytes Mandaen [Ratio] in [facility] Nucleated 0.00 0.0-0.01 [facility] - erythrocytes K/uL Good [#/volume] in [facility] Segmented 68 % 48.0-72. [facility] - neutrophils/100 0 Good leukocytes in [facility] Lymphocytes/100 19 % 18.0-40. [facility] - leukocytes in 0 [facility] Monocytes/100 7 % 2.0-12.0 [facility] - leukocytes in [facility] Eosinophils/100 5 % 0.0-7.0 [facility] - leukocytes in [facility] Basophils/100 1 % 0.0-3.0 [facility] - leukocytes in [facility] Immature 1 % 0-0.5 Above high normal [facility] - granulocytes/100 Good leukocytes in [facility] by Hospital Automated count Segmented 5.2 K/UL 2.3-7.6 [facility] - neutrophils Good [#/volume] in [facility] Lymphocytes 1.5 K/UL 0.9-4.2 [facility] - [#/volume] in [facility] Monocytes 0.6 K/UL 0.1-1.7 [facility] - [#/volume] in [facility] Eosinophils 0.3 K/UL 0.0-1.0 [facility] - [#/volume] in [facility] Basophils 0.0 K/UL 0.0-0.4 [facility] - [#/volume] in [facility] Immature 0.0 K/UL 0.0-0.17 [facility] - granulocytes Good [#/volume] in [facility] by Hospital Automated count Differential [facility] - cell count [facility] method [facility] ID Date Data Source [id number] 08/16/2019 08:50:30 PM EST [facility] - [facility] sudden onset of difficulty breathing and rash while eating english food, rashacross face and chest slightly raised, no vesicles, denies any chest pain deniesany itching at this time. Went to urgent care, recei nataliia benadryl 50 mg IMfrom EMS. Name Value Range Interpretation Code Description Data [facility] rce(s) Supporting Document(s ) ID Date Data Source [id number] 08/11/2019 08:03:02 AM [facility] History:Chest [...] disease Signing date/time: 08/11/2019 8:03 AMSigned by: CLAIER LUCIANO Name Value Range Interpretation Code Description Data [facility] Supporting Document(s ) ID Date Data Source [id number] 08/11/2019 04:22:14 AM [facility] The [...] of morbidity or mortality cardiac cath at [facility] approx 6-8 months ag o Other [...] e Gets together: Not on file Attends islam service: Not on file 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 [...] Normal breath sounds. No wheezing or rales.Abdo elloit: General: Bowel sounds are normal. There is [...] QTC Calculation (Bezet) 435 ms Calculated P [place] 55 degrees Calculated R [place] 34 degrees Calculated T [place] 9 degrees Diagnosis S inus tachycardiaOtherwise normal [...] Time: 08/11/19 12:01 AMResult Value Ref Range [place] level <0.20 (L) 0.6 - 1.2 MMOL/LLACTIC [...] Data Source [id number]*ENCOUNTER 08/11/2019 01:42:54 AM EST [facility] - [facility] [id number] [facility] EMERGENCY DEPARTMENT [address] [place] [address] [phone]/ Mali yangMaxwell mackey (Male) [id number] JOSE 2 ED Dispo:DISCHARGE Chief Complaint: Chest Pain, Shortne ss of Breath Diagnosis: Dyspnea, unspecified type [] Current Providers: Yeimy cochran: Javier Quezada Primary Nurse: ELIS WilsonN: [id number] [id number] Print Gr[employer] p [phone] [facility] MrUTRN: [id number] Print Group [phone] - Bs hsi Ed Medva Age SexDOB 1970 AGE 49 SEX Male Primary Care Provider: Ritika Canas MD Phone: [phone]: (No Known Allergies)Date Reviewed: 08/10/2019Reviewed by: Chiquis Christianson CompleteED Provider Notes: No notes of this type exist for this encounter.ED Orders [id number] E KG, 12 LEAD, INITIAL [#[id number]] Priority: STAT Class: Hospital Performed Stand ing Order Information Remaining Occurrences:0 Interval:ONE TIME Last released:0 08/10/2019 Released orders: Sun Aug 10, 2019 10:17 PM by: CHIQUIS CHRISTIANSON Reason for Exam: -> CP SOB [id number] EKG, 12 LEAD, INITIAL [#[id number]] Priority: STAT Class: Hospital Performed Specimen Collected: 08/10/2019 10:14 PM Resulting Agency: [facility] Test ID: [id number] Reason for Exam: -> CP SOB Released on: 08/10/2019 10:17 PM [id number] EKG, 12 LE AD, INITIAL [#[id number]] Priority: STAT Class: Hospital Performed Standing Or mariano Information Remaining Occurrences:0/1 Interval:ONE TIME Last released:0 08/10/2019 Released orders: [place] Aug 10, 2019 11:51 PM by: MAYANK QUEZADA V Reason fo r Exam: -> Chest Pain [id number] EKG, 12 LEAD, INITIAL [#[id number]] Priority: STAT C lass: Hospital Performed Resulting Agency: [facility] Test ID: [id number] Reason for Exam: -> Chest P ain Released on: 08/10/2019 11:51 PM [id number] BONE PULLER - ED ONLY [#[id number]] Priority: STAT Class: Hospital Performed Standing Order Information Remaining Occurre nces:0/1 Interval:Continuous Last released:08/10/2019 Released orders : [place] Aug 10, 2019 11:51 PM by: MAYANK QUEZADA V Type: -> Bedside [id number] PULSE OXIMETR Y CONTINUOUS [#[id number]] Priority: STAT Class: Hospital Performed Standing Or mariano Information Remaining Occurrences:0/1 Interval:CONTINUOUS Last released :08/10/2019 Released orders: [place] Aug 10, 2019 11:51 PM by: MAYANK QUEZADA V [id number] PULSE OXIMETRY SPOT CHECK [#[id number]] Priority: STAT Class: Hospital Performe d Standing Order Information Remaining Occurrences:0/1 Interval:ONE TIME Last r eleased:08/10/2019 Released orders: [place] Aug 10, 2019 11:51 PM by: MAYANK QUEZADA V NU [id number] OBTAIN OLD EKG [#[id number]] Priority: Routine Class: Hospital Perfo rmed Standing Order Information Remaining Occurrences:0/1 Interval:ONE TI ME Last released:08/10/2019 Released orders: [place] Aug 10, 2019 11:51 PM by: MAYANK QUEZADA V [id number] BONE PULLER - ED ONLY [#[id number]] Priority: STAT Class: H ospital Performed Type: -> Bedside Released on: 08/10/2019 11:51 PM [id number] PULSE OXIM ETRY CONTINUOUS [#[id number]] Priority: STAT Class: Hospital Performed Released on : 08/10/2019 11:51 PM [id number] PULSE OXIMETRY SPOT CHECK [#[id number]] Priority: STAT C lass: Hospital Performed Released on: 08/10/2019 11:51 PM [id number] OBTAIN OLD EKG [#[id number]] Priority: STAT Class: Hospital Performed Released on: 08/10/2019 11: 51 PM [id number] RT--OXYGEN CANNULA [#[id number]] Priority: STAT Class: H ospital Performed Standing Order Information Remaining Occurrences:0/1 Interval:CONTIN UOUS Last released:08/10/2019 Released orders: [place] Aug 10, 2019 11:51 PM by: MAYANK PRADO V Comment:TITRATE UP TO 4 L / MINUTE TO MAINTAIN O2 SATS GREATER THAN OR EQUAL TO 94% LPM -> 2 Indications for O2? -> CHEST PAIN [id number] RT--OXYGEN CANNULA [#[id number]] Priority: STAT Class: Hospital Performed Comment:TITRATE UP TO 4 L / MINUTE TO MAINTAIN O2 SATS GREATER THAN OR EQUAL TO 94% LPM -> 2 Indications fo r O2? -> CHEST PAIN Released on: 08/10/2019 11:51 PM [id number] DIET NPO [#[id number]] Priority: STAT Class: Hospital Performed Standing Order Information Remaining Occurrences:0/1 Interval:DIET EFFECTIVE NOW Last released:08/10 Released orders: [place] Aug 10, 2019 11:51 PM by: MAYANK QUEZADA V NPO options: - > With Meds [id number] DIET NPO [#[id number]] Priority: STAT Class: H ospital Performed NPO options: -> With Meds Released on: 08/10/2019 11:51 PM [id number] SALINE LOCK IV [#[id number]] Priority: STAT Class: Hospital Performed Standing O rder Information Remaining Occurrences:0/1 Interval:ONE TIME Last released:0 08/10/2019 Released orders: [place] Aug 10, 2019 11:51 PM by: MAYANK QUEZADA V [id number] SALI NE LOCK IV [#[id number]] Priority: STAT Class: Hospital Performed Relea sed on: 08/10/2019 11:51 PM [id number] METABOLIC PANEL, COMPREHENSIVE [#[id number]] Bridgette ority: STAT Class: ER Collect Standing Order Information Remaining Occurrences:0/1 In terval:ONE TIME Last released:08/10/2019 Released orders: Sun Aug 10, 2019 11:51 PM by: MAYANK [id number] CBC WITH AUTOMATED DIFF [#[id number]] Priority: STAT Class: ER Collect Standing Order Information Remaining Occurrences:0/1 Inter haile:ONE TIME Last released:08/10/2019 Released orders: Sun Aug 10, 2019 11:51 PM by: MAYANK QUEZADA V [id number] TROPONIN I [#[id number]] Priority: STAT Class: ER Collect Standing Order Information Remaining Occurrences:0/1 Inter haile:ONE TIME Last released:08/10/2019 Released orders: Sun Aug 10, 2019 11:51 PM by: MAYANK QUEZADA V [id number] MAGNESIUM [#[id number]] Priority: STAT Class: ER Collect Standing Order Information Remaining Occurrences:0/1 Inter haile:ONE TIME Last released:08/10/2019 Released orders: Sun Aug 10, 2019 11:51 PM by: MAYANK QUEZADA V [id number] BNP [#[id number]] Priority: STAT Class: ER Collect Standing Order Information Remaining Occurrences:0/1 Inter haile:ONE TIME Last released:08/10/2019 Released orders: Sun Aug 10, 2019 11:51 PM by: MAYANK QUEZADA V [id number] D DIMER [#[id number]] Priority: STAT Class: ER Collect Standing Order Information Remaining Occurrences:0/1 Inter haile:ONE TIME Last released:08/10/2019 Released orders: Sun Aug 10, 2019 11:51 PM by: MAYANK QUEZADA V [id number] PROTHROMBIN TIME + INR [#[id number]] Priority: STAT Class: ER Collect Standing Order Information Remaining Occurrences:0/1 Inter haile:ONE TIME Last released:08/10/2019 Released orders: Sun Aug 10, 2019 11:51 PM by: MAYANK QUEZADA V [id number] PTT [#[id number]] Priority: STAT Class: ER Collect Specimen Source: Blood Standing Order Information Remaining Occurrences:0 /1 Interval:ONE TIME Last released:08/10/2019 Released orders: Sun Aug 10, 2019 11:51 PM by: MAYANK QUEZADA V [id number] LITHIUM [#[id number]] Pr iority: STAT Class: ER Collect Standing Order Information Remaining Occurrences:0/1 I nterval:ONE TIME Last released:08/10/2019 Released orders: Sun Aug 10, 2019 11:51 PM by: MAYANK QUEZADA V [id number] METABOLIC PANEL, COMPREHENSIVE [#[id number]] Bridgette ority: STAT Class: ER Collect Specimen Source: Plasma Specimen Collected: 08/11/2019 12:01 AM Resulting Agency: [facility] Test ID: MPL Released on: 08/10/2019 11:51 PM [id number] CBC WITH AUTOMATED DIFF [#[id number]] Priority: STAT Class: E R Collect Specimen Source: Whole Blood Specimen Collected: 08/11/2019 12:01 AM Resulting Agency: [facility] Test ID: CBCXA Released on: 08/10/2019 11:51 PM [id number] TROPON IN I [#[id number]] Priority: STAT Class: ER Collect Specimen Source: [place] sma Specimen Collected: 08/11/2019 12:01 AM Resulting Agency: [facility] RY Test ID: TROIP Released on: 08/10/2019 11:51 PM [id number] MAGNESIUM [#[id number]] Priority: STAT Class: ER Collect Specimen Source: Plasma Specimen Collec hyun: 08/11/2019 12:01 AM Resulting Agency: [facility] Test ID: MGPL Re leased on: 08/10/2019 11:51 PM [id number] BNP [#[id number]] Priority : STAT Class: ER Collect Specimen Source: Plasma Specimen Collected: 08/11/2019 12:01 AM Resultin g Agency: [facility] Test ID: BNPPB Released on: 08/10/2019 11:51 PM [id number] 74 D DIMER [#[id number]] Priority: STAT Class: ER Collect Speci men Source: Plasma Specimen Collected: 08/11/2019 12:01 AM Resulting Agency: [facility] Test ID: DDIME Released on: 08/10/2019 11:51 PM [id number] PROTHROMBIN TIME + INR [#[id number]] Priority: STAT Class: ER Collect Specimen Source: Plasma Specimen Collec hyun: 08/11/2019 12:01 AM Resulting Agency: [facility] Test ID: APTHR R eleased on: 08/10/2019 11:51 PM [id number] PTT [#[id number]] Priorit y: STAT Class: ER Collect Specimen Source: Plasma Specimen Collected: 08/11/2019 12:01 AM Resultin g Agency: [facility] Test ID: APTT Released on: 08/10/2019 11:51 PM [id number] LITHIUM [#[id number]] Priority: STAT Class: ER Collect Speci men Source: Serum Specimen Collected: 08/11/2019 12:01 AM Resulting Agency: [facility] Test ID: LI Released on: 08/10/2019 11:51 PM [id number] LACTIC ACID [#[id number]] Priority: STAT Class: ER Collect Standing Order Information Remainin g Occurrences:0/1 Interval:ONE TIME Last released:08/11/2019 Released orders : Mon Aug 11, 2019 12:15 AM by: KATI WILSON [id number] LACTIC ACID [#[id number]] Priority: STAT Class: ER Collect Specimen Source: Plasma Specimen Collec hyun: 08/11/2019 12:01 AM Resulting Agency: [facility] Test ID: LAC Rel eased on: 08/11/2019 12:15 AM ASPIRIN 81 MG CHEWABLE TAB [#[id number]] Priority: STAT Class: Normal [id number] XR CHEST PORT [#[id number]] Priority: STAT Cl ass: Hospital Performed Standing Order Information Remaining Occurrences:0/1 Inter haile:ONE TIME Last released:08/10/2019 Released orders: Sun Aug 10, 2019 11:51 PM by: MAYANK QUEZADA V Reason for Exam -> Chest Pain [id number] XR CHEST PORT [#[id number]] Priority: STAT Class: Hospital Performed Resulting Agency: [facility] Test ID: [id number] Reason for Exam -> Chest Pain Released on: 08/10/2019 11:51 PM [id number] INFLUENZA A & B AG (RAPID TEST) [#[id number]] Priority: STAT Class: ER Collect Sta nding Order Information Remaining Occurrences:0/1 Interval:ONE TIME Last released: 08/10/2019 Released orders: Sun Aug 10, 2019 11:51 PM by: MAYANK QUEZADA V [id number] INFL UENZA A & B AG (RAPID TEST) [#[id number]] Priority: STAT Class: ER Collect Specimen Source : Nasal washing Specimen Collected: 08/11/2019 12:18 AM Resulting Agency: [facility] Test ID: INFLUA Released on: 08/10/2019 11:51 PM [id number] CULTURE, BLOOD [#[id number]] Priority: STAT Class: ER Collect Specimen Source: Blood Standing Order Information Remaining Occurrences:0/1 Interval:ONE TIME Last released:0 08/11/2019 Released orders: SunAug 11, 2019 12:15 AM by: KATI WILSON [id number] CULTU RE, BLOOD [#[id number]] Priority: STAT Class: ER Collect Specimen Source : Blood Standing Order Information Remaining Occurrences:0/1 Interval:ONE TI ME Last released:08/11/2019 Released orders: SunAug 11, 2019 12:15 AM by: KATI WILSON [id number] CULTURE, BLOOD [#[id number]] Priority: STAT Class: E R Collect Specimen Source: Blood Specimen Collected: 08/11/2019 12:33 AM Resulting Agency: [facility] Test ID: HBCS Released on: 08/11/2019 12:15 AM [id number] CULTUR E, BLOOD [#[id number]] Priority: STAT Class: ER Collect Specimen Source: Blo od Specimen Collected: 08/11/2019 12:43 AM Resulting Agency: [facility] Test ID: HBCS Released on: 08/11/2019 12:15 AMMaxwell Bray MR#: [id number] Acct#: [id number]* Rm: [id number]: 5' 10" Wt: 280 lb Code: Prior Iso:Diagnosis:Allergies: No Amanda garcia Allergies -------- Current as of: 08/11/19 0142 GI=Given -------aspirin (ASPIRIN) tablet 325 mg #[id number] Admin Amount: 1 Tab (1 x 325 mg Tab) Ordered Dose: 325 mg Route: Oral Freq: ONCE Start Date: 12/24/13 No administration times (b ack 96 hours, ahead 96 hours). ------diphenhydrAMINE (BENADRYL) capsule 50 mg #[id number] Admin Amount: 1 Cap (1 x 50 mg Cap) Ordered Dose: 50 mg Ro red cliff: Oral Freq: NOW Start Date: 12/24/13 No administration times (back 96 hours, ahead 96 hours). ------diazepam (VALIUM) tablet 5 mg #[id number] Admin Amount: 1 Tab (1 x 5 mg Tab) Ordered Dose: 5 mg Route: Oral Freq: ONCE Start Date: 12/24/13 No administration times (back 96 hours, ahead 96 hours). ------lidocaine (XYLOCAINE) 10 mg/mL (1 %) injection 1-3 0 mL #[id number] Admin Amount: 1-30 mL Ordered Dose: 1-30 mL Route: Int raDERMal Freq: ONCE Start Date: 12/24/13 No administration times (back 96 hours, ahead 96 hours). ------heparin (PF) 2 units/ml in NS infusion 2,000 Units #[id number] Admin Amount: 1,000 mL = 2,000 Units of 2 Units/mL Ordered Dose: 1,000 mL Route: Irrigation Freq: ONCE Start Date: 12/24/13 No administration times (back 96 hours, ahead 96 hours). ------heparinized saline 2 units/mL infusion 1,000 Units #[id number] Admin Amount: 500 mL = 1,000 Units of 2 Units/mL Ordered Dose: 500 m L Route: IntraarTERial Freq: ONCE Start Date: 12/24/13 No admini stration times (back 96 hours, ahead 96 hours). ------0.9% sodium chloride infusion #[id number] Ordered Dose: 75 mL/hr Route: IntraVENous Freq: CONTINUOUS Start Date: 12/24/13 Rate: 75 mL/hr Duration: No administration ti mes (back 96 hours, ahead 96 hours). ------ioversol (OPTIRAY) 320 mg iodine/mL contrast inje ction 1-100 mL #[id number] Admin Amount: 1-100 mL Ordered Dose: 1-100 mL Ro red cliff: IntraVENous Freq: RAD ONCE Start Date: 12/24/13 No administration times (back 96 hours, ahead 96 hours).Maxwell Bray MR#: [id number] * Rm: [id number] Ht: 5' 10" Wt: 280 lb Code: Prior Iso:Diagnosis:Allergies: No Known Allergies -------- Current as of: 08/11/19 0142 GI=Given -------gadobutrol (GADAVIST) contrast solution 1-10 mL #[id number] Admin Amount: 1-10 mL Ordered Dose: 1-10 mL Route: Int raVENous Freq: RAD ONCE Start Date: 01/13/14 No administration times (back 96 hours, ahead 96 hours). ------sodium chloride (NS) flush 5-10 mL #[id number] Admin Amount: 5-10 mL Ordered Dose: 5-10 mL Route: IntraVENo us Freq: RAD ONCE Start Date: 01/13/14 No administration times (back 96 hours, ahe ad 96 hours). ------sodium chloride (NS) 0.9 % flush #[id number] Ordered Dose: Route: Freq: Start Date: 01/13/14 No administration times (back 96 hours, ahead 96 hours). ------morphine injection 2 mg #[id number] Admin Amount: 1 mL = 2 mg of 2 mg/mL Ordered Dose: 2 mg Route: IntraVENous Freq: NOW Start Date: 03/13/15 No administration t imes (back 96 hours, ahead 96 hours). ------influenza vaccine (4 yr+)(PF) (FLUCELVAX Q UAD) injection 0.5*#[id number] Admin Amount: 0.5 mL Ordered Dose: 0.5 mL Route: Int raMUSCular Freq: PRIOR TO DISCHARGE Start Date: 03/30/16 No administration times (back 9 6 hours, ahead 96 hours). ------oxyCODONE-acetam inophen (PERCOCET) 5-325 mg per tablet 1 Tab #[id number] Admin Amount: 1 Tab Ordered Dose: 1 Tab Route: Oral Freq: NOW Start Date: 09/07/17 No administration times (back 96 hours, e ad 96 hours). ------barium sulfate (READICAT) 2.1 % (w/v), 2.0 % (w/w) oral suspension 9*#[id number] Admin Amount: 900 mL Ordered Dose: 900 mL Route: Oral Delgado q: RAD ONCE Start Date: 10/15/17 No administration times (back 96 hours, e ad 96 hours). ------iopamidol (ISOVUE 300) 61 % contrast injection 100 mL #[id number] Admin Amount: 100 mL Ordered Dose: 100 mL Route: Int raVENous Freq: RAD ONCE Start Date: 10/15/17 No administration times (back 96 hours, ahead 96 hours).Maxwell Bray MR#: [id number] * Rm: [id number]: 5' 1 0" Wt: 280 lb Code: Prior Iso:Diagnosis:Allergies: No Known Allergies -------- Current as of: 08/11/19 0142 GI=Given -------risperiDONE (RisperDAL m-tabs) disintegrating tablet 1 mg #[id number] Admin Amount: 1 Tab (1 x 1 mg Tab) Ordered Dose: 1 mg Route: Oral Freq: ONCE Start Date: 12/24/17 No administration times (back 96 hours, ahead 96 hours). ------ALPRAZolam (XANAX) tablet 2 mg #[id number] Admin Amount: 4 Tab (4 x 0.5 mg Tab) Ordered Dose: 2 mg Route: Oral Freq: NOW Start Date: 12/24/17 No administration times (back 96 hours, ahead 96 hours). ------lamoTRIgine (LaMICtal) tablet 100 mg #[id number] Admin Amount: 1 Tab (1 x 100 mg Tab) Ordered Dose: 100 mg Route: Oral Freq: ONCE Start Date: 12/24/17 No administration times (back 96 hours, ahead 96 hours). ------OLANZapine (ZyPREXA zydis) disintegrating tablet 5 mg #[id number] Admin Amount: 1 Tab (1 x 5 mg Tab) Ordered Dose: 5 mg Route: Oral Freq: ONCE Start Date: 12/25/17 No administration times (back 96 hours, ahead 96 hours). ------LORazepam (ATIVAN) tablet 2 mg #[id number] Admin Amount: 4 Tab (4 x 0.5 mg Tab) Ordered Dose: 2 mg Route: Oral Freq: NOW Start Date: 12/25/17 No administration times (back 96 hours, ahead 96 hours). ------LORazepam (ATIVAN) injection 1 mg #[id number] Admin Amount: 0.5 mL = 1 mg of 2 mg/mL Ordered Dose: 1 mg Route: IntraVENous Freq: NOW Start Date: 12/25/17 No administration ti mes (back 96 hours, ahead 96 hours). ------barium sulfate (EZ PAQUE) 96 % (w/w) contrast suspensio n 176 g #[id number] Admin Amount: 176 g Ordered Dose: 176 g Route: Oral Delgado q: RAD ONCE Start Date: 08/02/18 No administration times (back 96 hours, ahe ad 96 hours). ------barium sulfate (EZ PAQUE) 96 % (w/w) contrast suspensio n 176 g #[id number] Admin Amount: 176 g Ordered Dose: 176 g Route: Oral Delgado q: RAD ONCE Start Date: 08/02/18 No administration times (back 96 hours, e ad 96 hours).Maxwell Bray MR#: [id number] * Rm: [id number]: 5' 10" Wt: 280 lb Code: Prior Iso:Diagnosis:Allergies: No Known Allergies -------- Current as of: 08/11/19 0142 GI=Given -------aspirin chewable tablet 162 mg #[id number] Admin Amount: 2 Tab (2 x 81 [...] [facility] Kevinsam Rodriguez [address] [id number] With:Detail s:Comments:As needed, If symptoms worsenContact Info: Name Value Range Interpretation Code Description [facility] Supporting Document(s ) ID Date Data Source [id number] 08/11/2019 01:40:37 AM EST [facility] I have reviewed discharge instructions w ith the patient and spouse. The patientand spouse verbalized understanding.\\ Name Value Range Interpretation Code Description Data [facility] rce(s) Supporting Document(s ) ID Date Data Source [id number] 08/16/2019 06:35:29 AM EST [facility] Name Value Range Interpretation Description Data Sup porting Code Source(s) Document(s ) Service comment [facility] Bacteria [facility] identified [facility] specimen by Culture ID Date Data Source [id number] 08/16/2019 06:35:28 AM EST [facility] Name Value Range Interpretation Description Data Sup porting Code Source(s) Document(s ) Service comment [facility] Bacteria [facility] identified in [facility] specimen by Culture ID Date Data Source [id number] 08/11/2019 12:56:01 AM EST [facility] Name Value Range Interpretation Description Data Sup porting Code Source(s) Document(s ) [facility] [Presence] Mandaen in [facility] Hospital by Immunoassay Influenza virus NEG [facility] B Ag [Presence] Mandaen in [facility], [facility] Hospital by Immunoassay IMMUNOCHROMATOGRAPHIC MEMBRANE ASSAYResu lt: Negative for Influenza A and BNote: A negative result does not exclude an infl uenza virus infection, including H1N1. If more conclusive testing is desired, foll ow-up confirmatory testing is warranted. Specimen source [Identifier] of Unspecified [facility] specimen ID Date Data Source [id number] 08/11/2019 01:35:58 AM EST [facility] Name Value Range Interpretation Description Data Sup porting Code Source(s) Document(s ) Prothrombin 9.6 sec 9.4-11.1 [facility] time (PT) [facility] INR in 0.9 0.8-1.2 BSS - Good Platelet poor Mandaen plasma by Hospital Coagulation assay ID Date Data Source [id number] 08/11/2019 01:35:58 AM EST [facility] Name Value Range Interpretation Description Data Sup porting Code Source(s) Document(s ) aPTT in 23.1 SEC 21.0-28. [facility] - Good Platelet poor 0 Mandaen plasma by Hospital Coagulation assay Therapeutic Range = 42.0-60.0 secs ID Date Data Source [id number] 08/11/2019 01:30:36 AM EST [facility] Name Value Range Interpretation Description Data Sup porting Code Source(s) Document(s ) Natriuretic 19 pg/mL 0-100 [facility] peptide B Mandaen [Mass/volume] [facility] in Serum or Plasma ID Date Data Source [id number] 08/11/2019 01:25:10 AM EST [facility] Name Value Range Interpretation Code Description Data Supporting Source(s) Document(s ) Paa-Ko 0.6-1.2 Below low normal [facility] - Good [Moles/volum Mandaen e] in Serum Hospital or Plasma ID Date Data Source [id number] 08/11/2019 01:20:56 AM EST [facility] Name Value Range Interpretation Code Description Data Melani rce(s) Supporting Document(s ) Fibrin <500 [facility] - [facility] D-dimer FEU Mandaen [Mass/volume] [facility] in Platelet poor plasma (NOTE)Combination of a D-Dimer result wi thin the reference range and a lowclinical pretest probability has good negative pr edictive value fordeep venous thrombosis.If results are utilized for VTE evaluation, <500 ng/ml is consideredto be negative. ID Date Data Source [id number] 08/11/2019 01:09:42 AM EST [facility] Value Range Interpretation Description Data Sup porting Code Source(s) Document(s ) Lactate 1.7 0.4-2.0 [facility] - Good [Moles/volu MMOL/L Mandaen me] in Hospital Serum or Plasma ID Date Data Source [id number] 08/11/2019 01:09:42 AM EST [facility] Value Range Interpretation Description Data Sup porting Code Source(s) Document(s ) Troponin 0.00-0.05 [facility] - Good I.cardiac Mandaen [Mass/volume Hospital ] in Serum or Plasma [...] to 1.50 ng/mL ID Date Data Source [id number] 08/11/2019 01:09:42 AM EST [facility] Name Value Range Interpretation Description Data Sup porting Code Source(s) Document(s ) Sodium 140 136-145 [facility] - Good [Moles/volume] mmol/L Mandaen in Serum or Hospital Plasma Potassium 3.9 3.5-5.1 [facility] - Good [Moles/volume] mmol/L Mandaen in Serum or Hospital Plasma Chloride 113 98-107 Above high normal [facility] - Good [Moles/volume] mmol/L Mandaen in Serum or Hospital Plasma Carbon 21 21-32 [facility] - Good dioxide, total mmol/L Mandaen [Moles/volume] Hospital in Serum or Plasma Anion gap in 10 10-20 [facility] - Good Serum or mmol/L Mandaen Plasma Hospital Glucose 90 mg/dL 74-106 [facility] - Good [Mass/volume] Mandaen in Serum or Hospital Plasma Urea nitrogen 18 mg/dL 7-18 [facility] - Good [Mass/volume] Mandaen in Serum or Hospital Plasma Creatinine 0.78 0.70-1.3 [facility] - Good [Mass/volume] mg/dL 0 Mandaen in Serum or Hospital Plasma Glomerular >60 [facility] - Good filtration Mandaen rate/1.73 sq M Hospital predicted among blacks [Volume Rate/Area] in Serum or Plasma by Creatinine-bas ed formula (MDRD) Glomerular >60 [facility] - Good filtration Mandaen rate/1.73 sq M Hospital predicted among non-blacks [Volume Rate/Area] in Serum or Plasma by Creatinine-bas ed formula (MDRD) (NOTE)Estimated GFR is calculated using the Modification of Diet in RenalDisease (MDRD) Study equation, reported for both Americans(GFRAA) and non- Americans (GFRNA), and normalized to 1.7 1f0vbws surface area. The physician must decide which [...] normal [facility] - Good Serum or Plasma [facility] Hosp ital Bilirubin.total 0.5 mg/dL 0.2-1.0 [facility] - Good [Mass/volume] in Serum or [facility] Plasma Alanine aminotransferase 29 U/L 13-61 [facility] - Good [Enzymatic activity/volume] [facility] in Serum or Plasma Aspartate aminotransferase 18 U/L 15-37 [facility] - Good [Enzymatic activity/volume] [facility] in Serum or Plasma by With P-5'-P Alkaline phosphatase 98 U/L 45-117 [facility] - G ood [Enzymatic activity/volume] [facility] in Serum or Plasma Protein [Mass/volume] in 6.7 g/dL 6.4-8.2 [facility] - Good Serum or Plasma [facility] ital Albumin [Mass/volume] in 3.4 g/dL 3.5-4.7 Below low normal [facility] - Good Serum or Plasma by [facility] ospital Bromocresol purple (BCP) dye binding method Globulin [Mass/volume] in 3.3 g/dL 1.7-4.7 [facility] - Good Serum by calculation [facility] Albumin/Globulin [Mass 1.1 0.7-2.8 [facility] - Good Ratio] in Serum or Plasma [facility] ID Date Data Source [id number] 08/11/2019 01:09:42 AM EST [facility] Name Value Range Interpretation Description Data Sup porting Code Source(s) Document(s ) Magnesium 2.1 mg/dL 1.6-2.6 [facility] - Good [Mass/volume] Mandaen in Serum or [facility] Plasma ID Date Data Source [id number] 08/11/2019 01:01:18 AM EST [facility] - [facility] Name Value Range Interpretation Description Data Sup porting Code Source(s) Document(s ) Leukocytes 7.7 K/uL 4.8-10.6 [facility] - [#/volume] in Good Blood by [facility] Erythrocytes 4.93 4.70-6.0 [facility] - [#/volume] in M/uL 0 Good Blood by [facility] Hemoglobin 14.9 14.0-18. [facility] - [Mass/volume] in g/dL [address] [facility] Hematocrit 44.4 % 42.0-52. [facility] - [Volume 0 Good Fraction] of Mandaen Blood by Hospital Automated count Erythrocyte mean 90.1 FL 81.0-94. [facility] - corpuscular 0 Good volume [Entitic Mandaen volume] by Hospital Automated count Erythrocyte mean 30.2 PG 27.0-35. [facility] - corpuscular 0 Good hemoglobin Mandaen [Entitic mass] Hospital by Automated count Erythrocyte mean 33.6 30.7-37. [facility] - corpuscular g/dL 3 Good hemoglobin Mandaen concentration [facility] [Mass/volume] by Automated count Erythrocyte 12.5 % 11.5-14. [facility] - distribution 0 Good width [Ratio] by Mandaen Automated count Hospital Platelets 189 K/uL 130-400 [facility] - [#/volume] in [facility] Blood by Mandaen Automated count Hospital Platelet mean 9.0 FL 9.2-11.8 Below low normal [facility] - volume [Entitic Good volume] in Blood [facility] Automated Hospital count Nucleated 0.0 PER 0 [facility] - erythrocytes/100 100 WBC Good leukocytes Mandaen [Ratio] in Blood [facility] Nucleated 0.00 0.0-0.01 [facility] - erythrocytes K/uL Good [#/volume] in [facility] Segmented 59 % 48.0-72. [facility] - neutrophils/100 0 Good leukocytes in [facility] Lymphocytes/100 29 % 18.0-40. [facility] - leukocytes in 0 [facility] Blood [facility] Monocytes/100 7 % 2.0-12.0 [facility] - leukocytes in [facility] Blood [facility] Eosinophils/100 5 % 0.0-7.0 [facility] - leukocytes in [facility] Blood [facility] Basophils/100 1 % 0.0-3.0 [facility] - leukocytes in [facility] Blood [facility] Immature 0 % 0-0.5 [facility] - granulocytes/100 Good leukocytes in M[facility] Blood by Hospital Automated count Segmented 4.6 K/UL 2.3-7.6 [facility] - neutrophils Good [#/volume] in [facility] Lymphocytes 2.2 K/UL 0.9-4.2 [facility] - [#/volume] in [facility] Blood [facility] Monocytes 0.5 K/UL 0.1-1.7 [facility] - [#/volume] in [facility] Eosinophils 0.4 K/UL 0.0-1.0 [facility] - [#/volume] in [facility] Basophils 0.1 K/UL 0.0-0.4 [facility] - [#/volume] in [facility] Immature 0.0 K/UL 0.0-0.17 [facility] - granulocytes Good [#/volume] in [facility] by Hospital Automated count Differential [facility] - cell count Good method - [facility] Procedure Social History Code Duration Value Status Description Data Source(s ) Alcohol intake 01/08/2020 Current completed Current Mobile s 12:00:00 AM EDT non-drinker non-drinker of [employer] alcohol (finding) [employer] (finding) Tobacco use and 01/08/2020 Never used completed Never used [facility] exposure 12:00:00 AM EDT [employer] Smoking 01/08/2020 Never smoker completed Never smoker Mobile s 12:00:00 AM EDT [employer] Alcohol intake 12/25/2019 Current completed Current Mobile s 12:00:00 AM EDT non-drinker non-drinker of [employer] alcohol (finding) [employer] (finding) Tobacco use and 12/25/2019 Never used completed Never used [facility] exposure 12:00:00 AM EDT [employer] Smoking 12/25/2019 Never smoker completed Never smoker Mobile s 12:00:00 AM EDT [employer] Alcohol intake 12/12/2019 Current completed Current Mobile s 12:00:00 AM EDT non-drinker non-drinker of [employer] alcohol (finding) [employer] (finding) Smoking 12/12/2019 Never smoker completed Never smoker Mobile s 12:00:00 AM EDT [employer] Alcohol intake 12/05/2019 Current completed Current Mobile s 12:00:00 AM EDT non-drinker non-drinker of [employer] alcohol (finding) [employer] (finding) Tobacco use and 12/05/2019 Never used completed Never used [facility] exposure 12:00:00 AM EDT [employer] Smoking 12/05/2019 Never smoker completed Never smoker Mobile s 12:00:00 AM EDT [employer] Alcohol intake 12/01/2019 Current completed Current Mobile s 12:00:00 AM EDT non-drinker non-drinker of [employer] of alcohol alcohol (finding) [employer] (finding) Smoking 12/01/2019 Never smoker completed Never smoker Mobile s 12:00:00 AM EDT [employer] Alcohol intake 11/14/2019 Current completed Current Mobile s 12:00:00 AM EDT non-drinker non-drinker of Adisn alcohol alcohol (finding) [employer] (finding) Smoking 11/14/2019 Never smoker completed Never smoker Mobile s 12:00:00 AM EDT [employer] Alcohol intake 11/10/2019 Current completed Current Mobile s 12:00:00 AM EDT non-drinker non-drinker of Adisn alcohol alcohol (finding) [employer] (finding) Smoking 11/10/2019 Never smoker completed Never smoker Mobile s 12:00:00 AM EDT [employer] Alcohol intake 09/06/2019 Current completed Current Mobile s 12:00:00 AM EDT non-drinker non-drinker of [employer] of alcohol alcohol (finding) [employer] (finding) Smoking 09/06/2019 Never smoker completed Never smoker Mobile s 12:00:00 AM EDT [employer] Alcohol intake 08/16/2019 Current completed Current Mobile s 12:00:00 AM EST non-drinker non-drinker of [employer] of alcohol alcohol (finding) [employer] (finding) Smoking 08/16/2019 Never smoker completed Never smoker Mobile s 12:00:00 AM EST [employer] Alcohol intake 08/10/2019 Current completed Current Mobile s 12:00:00 AM EST non-drinker non-drinker of Adisn alcohol alcohol (finding) [employer] (finding) Smoking 08/10/2019 Never smoker completed Never smoker Mobile s 12:00:00 AM EST [employer] Alcohol intake 07/21/2019 Current completed Current Mobile s 12:00:00 AM EST non-drinker non-drinker of [employer] of alcohol alcohol (finding) System coComment (finding) Smoking 07/21/2019 Never smoker completed Never smoker Mobile s 12:00:00 AM EST [employer] Vital Signs ID Date Data Source UNK Name Value Range Interpretation Code Description Data Source(s) Oxygen saturation 98 % 98 % [place] ours in Arterial blood [employer] by Pulse oximetry [employer] Body mass index 48.95 kg/m2 48.95 kg/m2 [facility] ours (BMI) [Ratio] [employer]Comment Body weight 136.533 kg 136.533 kg [employer] [facility] Body height 167 cm 167 cm [employer] Respiratory rate 12 /min 12 /min [facility] [employer] [facility] Body temperature 36.56 May 36.56 May [place] [facility] [employer] [facility] Heart rate 102 /min 102 /min [employer] [facility] Diastolic blood 60 mm[Hg] 60 mm[Hg] [facility] pressure [employer] [facility] Systolic blood 100 mm[Hg] 100 mm[Hg] Mobile s pressure [employer] [facility] Diastolic blood 80 mm[Hg] 80 mm[Hg] [facility] pressure [employer] [facility] Systolic blood 122 mm[Hg] 122 mm[Hg] Mobile s pressure [employer] [facility] Respiratory rate 20 /min 20 /min [facility] urs [employer] Heart rate 70 /min 70 /min [employer] [facility] Diastolic blood 70 mm[Hg] 70 mm[Hg] [facility] pressure [employer] Systolic blood 124 mm[Hg] 124 mm[Hg] Mobile s pressure [employer] Respiratory rate 18 /min 18 /min [facility] [employer] [facility] Body temperature 36.56 May 36.56 May [facility] [employer] [facility] Heart rate 88 /min 88 /min [employer] Diastolic blood 86 mm[Hg] 86 mm[Hg] [facility] pressure [employer] Systolic blood 110 mm[Hg] 110 mm[Hg] Mobile s pressure [employer] Oxygen saturation 98 % 98 % [facility] ours in Arterial blood [employer] by Pulse oximetry [employer] Body mass index 47.98 kg/m2 47.98 kg/m2 [facility] ours (BMI) [Ratio] [facility] [employer] Body weight 133.811 kg 133.811 kg [employer] Body height 167 cm 167 cm [email or web address] Inc Respiratory rate 12 /min 12 /min [facility] urs [employer] Body temperature 36.67 May 36.67 May [facility] urs [employer] Heart rate 100 /min 100 /min [facility] [email or web address] Diastolic blood 66 mm[Hg] 66 mm[Hg] [facility] pressure [employer] Systolic blood 102 mm[Hg] 102 mm[Hg] Mobile s pressure [employer] Respiratory rate 20 /min 20 /min [facility] urs [employer] Heart rate 70 /min 70 /min [facility] [employer] Diastolic blood 68 mm[Hg] 68 mm[Hg] [facility] pressure [employer] Systolic blood 120 mm[Hg] 120 mm[Hg] Mobile s pressure [employer] Respiratory rate 18 /min 18 /min [facility] urs [employer] Heart rate 68 /min 68 /min [email or web address] Diastolic blood 68 mm[Hg] 68 mm[Hg] [facility] pressure [employer] Systolic blood 112 mm[Hg] 112 mm[Hg] Mobile s pressure [employer] Respiratory rate 20 /min 20 /min [facility] urs [employer] Body temperature 36.56 May 36.56 May [facility] urs [employer] Heart rate 92 /min 92 /min [employer] Diastolic blood 70 mm[Hg] 70 mm[Hg] [facility] pressure [facility] Systolic blood 110 mm[Hg] 110 mm[Hg] Mobile s pressure [facility] Respiratory rate 20 /min 20 /min [facility] urs [employer] Heart rate 68 /min 68 /min [place] [facility] [employer] Diastolic blood 72 mm[Hg] 72 mm[Hg] [facility] pressure [facility] Systolic blood 112 mm[Hg] 112 mm[Hg] Mobile s pressure [employer] Respiratory rate 20 /min 20 /min [facility] urs [employer] Heart rate 82 /min 82 /min [facility] [employer] Diastolic blood 66 mm[Hg] 66 mm[Hg] [facility] pressure [employer] Systolic blood 110 mm[Hg] 110 mm[Hg] Mobile s pressure [employer] Respiratory rate 14 /min 14 /min [facility] urs [employer] Body temperature 36.89 May 36.89 May [facility] urs [employer] Heart rate 72 /min 72 /min [facility] [employer] [facility] Diastolic blood 74 mm[Hg] 74 mm[Hg] [facility] pressure [employer] Systolic blood 128 mm[Hg] 128 mm[Hg] Mobile s pressure [employer] Respiratory rate 20 /min 20 /min [facility] urs [employer] Heart rate 68 /min 68 /min [facility] [employer] Diastolic blood 64 mm[Hg] 64 mm[Hg] [facility] pressure [employer] Systolic blood 108 mm[Hg] 108 mm[Hg] Mobile s pressure [employer] Respiratory rate 18 /min 18 /min [facility] urs [employer] Heart rate 80 /min 80 /min [facility] [employer] Diastolic blood 70 mm[Hg] 70 mm[Hg] [facility] pressure [employer] Systolic blood 98 mm[Hg] 98 mm[Hg] Mobile s pressure [employer] Respiratory rate 20 /min 20 /min [facility] urs [employer] Body temperature 36.56 May 36.56 May [facility] urs [employer] Heart rate 78 /min 78 /min [employer] Diastolic blood 60 mm[Hg] 60 mm[Hg] [facility] pressure [employer] Systolic blood 110 mm[Hg] 110 mm[Hg] Mobile s pressure [employer] Body mass index 48.95 kg/m2 48.95 kg/m2 [facility] ours (BMI) [Ratio] [facility] [employer] Body weight 136.533 kg 136.533 kg [facility] [employer] Respiratory rate 18 /min 18 /min [facility] urs [employer] Body temperature 36.56 May 36.56 May [facility] urs [employer] Heart rate 80 /min 80 /min [employer] Diastolic blood 70 mm[Hg] 70 mm[Hg] [facility] pressure [employer] Systolic blood 128 mm[Hg] 128 mm[Hg] Mobile s pressure [employer] Oxygen saturation 98 % 98 % [facility] ours in Arterial blood Bel[facility] [employer] by Pulse oximetry [employer] Body mass index 48.95 kg/m2 48.95 kg/m2 [facility] ours (BMI) [Ratio] [employer] Body weight 136.533 kg 136.533 kg [employer] Inc Body height 167 cm 167 cm [employer] Inc Respiratory rate 14 /min 14 /min [facility] urs [employer] Body temperature 36.44 May 36.44 May [facility] urs [employer] Heart rate 98 /min 98 /min [employer] Diastolic blood 60 mm[Hg] 60 mm[Hg] [facility] pressure [employer] Systolic blood 110 mm[Hg] 110 mm[Hg] Mobile s pressure [employer] Oxygen saturation 96 % 96 % [facility] ours in Arterial blood Bel[place] [employer] by Pulse oximetry System Inc Respiratory rate 18 /min 18 /min [facility] urs [employer] Body temperature 36.72 May 36.72 May [facility] [employer] System Inc Heart rate 80 /min 80 /min [employer] Diastolic blood 88 mm[Hg] 88 mm[Hg] [facility] rs pressure [employer] Systolic blood 128 mm[Hg] 128 mm[Hg] Mobile s pressure [employer] Body mass index 48.97 kg/m2 48.97 kg/m2 [facility] ours (BMI) [Ratio] [employer] [facility] Body weight 136.578 kg 136.578 kg [employer] Body height 167 cm 167 cm [employer] Oxygen saturation 98 % 98 % [facility] ours in Arterial blood Bela [employer] by Pulse oximetry System [employer] Body mass index 48.30 kg/m2 48.30 kg/m2 [facility] ours (BMI) [Ratio] [employer] Body weight 134.718 kg 134.718 kg Bon [employer] Body height 167 cm 167 cm [employer] Inc Respiratory rate 14 /min 14 /min [facility] urs [employer] Body temperature 37.33 May 37.33 May [facility] urs [employer] Heart rate 100 /min 100 /min [email or web address] Inc Diastolic blood 68 mm[Hg] 68 mm[Hg] [facility] rs pressure [employer] Systolic blood 118 mm[Hg] 118 mm[Hg] Mobile s pressure [employer] Oxygen saturation 98 % 98 % [facility] ours in Arterial blood Bel[facility] [employer] by Pulse oximetry System [employer] Body mass index 47.49 kg/m2 47.49 kg/m2 [facility] ours (BMI) [Ratio] [employer] Body weight 132.45 kg 132.45 kg Bon [employer] Inc Body height 167 cm 167 cm [employer] Inc Respiratory rate 12 /min 12 /min [facility] urs [employer] Body temperature 36.44 May 36.44 May [facility] urs [employer] Heart rate 88 /min 88 /min [employer] [place] [employer] Diastolic blood 70 mm[Hg] 70 mm[Hg] [facility] pressure [employer] Systolic blood 102 mm[Hg] 102 mm[Hg] Mobile s pressure [employer] Oxygen saturation 92 % 92 % [facility] ours in Arterial blood Bel[place] [employer] by Pulse oximetry System Inc Body mass index 45.86 kg/m2 45.86 kg/m2 [facility] ours (BMI) [Ratio] [employer] Body weight 133.811 kg 133.811 kg Bon [employer] Inc Body height 170.8 cm 170.8 cm Bon [employer] Inc Respiratory rate 12 /min 12 /min [facility] urs [employer] Body temperature 36.67 May 36.67 May [facility] urs [employer] Heart rate 88 /min 88 /min Bon [employer] Diastolic blood 80 mm[Hg] 80 mm[Hg] [facility] pressure [employer] Inc Systolic blood 120 mm[Hg] 120 mm[Hg] Mobile s pressure [employer] Oxygen saturation 95 % 95 % [facility] ours in Arterial blood [employer] by Pulse oximetry [employer] Respiratory rate 18 /min 18 /min [facility] urs [employer] Body temperature 36.44 May 36.44 May [facility] urs [employer] Heart rate 100 /min 100 /min [facility] [employer] Diastolic blood 80 mm[Hg] 80 mm[Hg] [facility] rs pressure [employer] Systolic blood 123 mm[Hg] 123 mm[Hg] Mobile s pressure [employer] Body mass index 46.99 kg/m2 46.99 kg/m2 [facility] ours (BMI) [Ratio] [employer] Body weight 136.079 kg 136.079 kg Bon [employer] [facility] Body height 170.2 cm 170.2 cm [employer] Inc Oxygen saturation 96 % 96 % [facility] ours in Arterial blood [employer] by Pulse oximetry System [employer] Body mass index 45.55 kg/m2 45.55 kg/m2 [facility] ours (BMI) [Ratio] [employer] [facility] Body weight 132.904 kg 132.904 kg [employer] Body height 170.8 cm 170.8 cm [employer] Inc Respiratory rate 14 /min 14 /min [facility] urs [employer] Body temperature 35.89 May 35.89 May [facility] urs [employer] Heart rate 96 /min 96 /min [employer] Diastolic blood 78 mm[Hg] 78 mm[Hg] [facility] pressure [employer] Systolic blood 116 mm[Hg] 116 mm[Hg] Mobile s pressure [employer] Oxygen saturation 92 % 92 % [facility] ours in Arterial blood [place] by Pulse oximetry System Inc Respiratory rate 15 /min 15 /min [facility] urs [employer] Heart rate 96 /min 96 /min Bon [employer] Inc Diastolic blood 86 mm[Hg] 86 mm[Hg] [facility] pressure [employer] Systolic blood 121 mm[Hg] 121 mm[Hg] Mobile s pressure [employer] Body mass index 40.18 kg/m2 40.18 kg/m2 [facility] ours (BMI) [Ratio] [employer] Body weight 127.007 kg 127.007 kg [employer] Body height 177.8 cm 177.8 cm [employer] Body temperature 36.72 May 36.72 May [facility] [employer] Body temperature 36.33 May 36.33 May [facility] urs [employer] Oxygen saturation 96 % 96 % [facility] ours in Arterial blood [place] by Pulse oximetry System Inc Respiratory rate 21 /min 21 /min [facility] urs [employer] Heart rate 85 /min 85 /min [employer] Diastolic blood 88 mm[Hg] 88 mm[Hg] [facility] pressure [employer] Systolic blood 155 mm[Hg] 155 mm[Hg] Mobile s pressure [employer] Body mass index 40.18 kg/m2 40.18 kg/m2 [facility] ours (BMI) [Ratio] [employer] Body weight 127.007 kg 127.007 kg [employer] Body height 177.8 cm 177.8 cm [employer] [facility] Oxygen saturation 98 % 98 % [facility] ours in Arterial blood [facility] by Pulse oximetry [employer] Inc Body mass index 44.66 kg/m2 44.66 kg/m2 [facility] ours (BMI) [Ratio] [employer] Body weight 128.368 kg 128.368 kg [employer] Body height 169.5 cm 169.5 cm [employer] Respiratory rate 12 /min 12 /min [facility] [employer] Body temperature 36.28 May 36.28 May [facility] [employer] Heart rate 68 /min 68 /min [employer] Diastolic blood 80 mm[Hg] 80 mm[Hg] [facility] Systolic blood 122 mm[Hg] 122 mm[Hg] [facility] Patient Treatment Plan of Care Planned Activity Planned Date Details Description Data Source (s) Propranolol Hydrochloride 01/08/2020 [facility] 10 MG Oral Tablet 12:00:00 AM [facility] [employer] Clonazepam 0.5 MG Oral 12/25/2019 [facility] [...] 12:00:00 AM EDT [facility] [place] Carbonate 300 MG 11/30/2019 [facility] Oral Capsule 12:00:00 AM [facility] Amitriptyline Hydrochloride 11/12/2019 [facility] 100 MG Oral Tablet 12:00:00 AM ED [employer] [facility] Docusate Sodium 100 MG Oral 11/04/2019 [facility] Capsule 12:00:00 AM [facility] Bisacodyl 5 MG Delayed 11/03/2019 [facility] Release Oral Tablet 12:00:00 AM EDT [facility] Bisacodyl 5 MG Delayed 10/31/2019 [facility] Release Oral Tablet 01:50:17 PM EDT [facility] Acetaminophen 325 MG Oral 10/29/2019 [facility] Tablet 02:44:40 PM EDT [facility] sodium chloride (NS) flush 10/29/2019 [facility] 5-40 mL 11:01:53 AM [facility] 24 HR Bupropion 10/17/2019 [facility] Hydrochloride 150 MG 12:00:00 AM EDT [employer] [facility] Extended Release Oral Tablet 24 HR Bupropion 10/17/2019 [facility] Hydrochloride 300 MG 12:00:00 AM EDT [facility] Extended Release Oral Tablet Vraylar 3 mg capsule 09/03/2019 [facility] 12:00:00 AM [facility] Amitriptyline Hydrochloride 08/20/2019 [facility] 150 MG Oral Tablet 12:00:00 AM [facility] [place] Carbonate 150 MG 08/16/2019 [facility] Oral Capsule 12:00:00 AM [facility] Prednisone 50 MG Oral 08/16/2019 [facility] Tablet 12:00:00 AM [facility] Cyclobenzaprine 07/21/2019 [facility] hydrochloride 10 MG Oral 12:00:00 AM [facility] Tablet Acetaminophen 325 MG / 07/21/2019 [facility] Oxycodone Hydrochloride 5 12:00:00 AM [facility] MG Oral Tablet VRAYLAR 6 mg capsule 07/07/2019 [facility] 12:00:00 AM [facility] [employer] valacyclovir 1000 MG Oral 07/17/2018 [facility] Tablet 12:00:00 AM [facility] Clonazepam 2 MG Oral Tablet [facility] cariprazine (Vraylar) 6 mg B on [facility] 24 HR Bupropion [facility] Hydrochloride 300 [facility] Extended Release Oral Tablet fluoxetine HCl (PROZAC PO) B [facility] ziprasidone 80 MG Oral [facility]
[2020-04-22 06:44] VITALS: BMI 47.4
[2020-04-22] MEDS ORDERED: KETAMINE HCL 500 MG/10 ML VIAL ONE (07:38)
[2020-04-22] MEDS ORDERED: PROPOFOL 20 ML ONE (07:50)
[2020-04-22] MEDS ORDERED: SUCCINYLCHOLINE CHLORIDE 200 MG/10 ML SYRINGE ONE (07:52)
[2020-04-22 08:49] VITALS: TEMP 98
[2020-04-22 09:15] VITALS: BP 112/77; PULSE 88
== END 2020-04-22 09:10 | disposition home or self-care (01) ==
LOC: FECT 06:19
PROVIDERS: ATTEND Psychiatry & Neurology Psychiatry
PROC: GZB4ZZZ Other Electroconvulsive Therapy (ICD-10-PCS; principal; 2020-04-22 08:30)
DX: F32.9 Major depressive disorder, single episode, unspecified (principal)
CPT/HCPCS: 90870; 94760

== ENCOUNTER 2020-05-06 06:40 | Day surgery (SDC) | payer OTHER ==
[2020-05-03 15:44] VITALS: BMI 47.4
[2020-05-06] MEDS ORDERED: KETAMINE HCL 500 MG/10 ML VIAL ONE (07:39)
[2020-05-06 10:01] VITALS: TEMP 98.2
[2020-05-06 10:02] VITALS: BP 125/79; PULSE 85
== END 2020-05-06 10:00 | disposition home or self-care (01) ==
LOC: FECT 06:40
PROVIDERS: ATTEND Psychiatry & Neurology Psychiatry
PROC: GZB4ZZZ Other Electroconvulsive Therapy (ICD-10-PCS; principal; 2020-05-06 09:00)
DX: F32.9 Major depressive disorder, single episode, unspecified (principal)
CPT/HCPCS: 90870; 94760; C9803; U0003

== ENCOUNTER 2020-05-10 06:35 | Day surgery (SDC) | payer OTHER ==
[2020-05-06 15:56] VITALS: BMI 47.4
[2020-05-10 07:05] VITALS: TEMP 97.8
[2020-05-10] MEDS ORDERED: KETAMINE HCL 500 MG/10 ML VIAL ONE (08:16)
[2020-05-10 10:27] VITALS: BP 116/71; PULSE 81
== END 2020-05-10 10:30 | disposition home or self-care (01) ==
LOC: FECT 06:35
PROVIDERS: ATTEND Psychiatry & Neurology Psychiatry
PROC: GZB4ZZZ Other Electroconvulsive Therapy (ICD-10-PCS; principal; 2020-05-10 08:30)
DX: F32.9 Major depressive disorder, single episode, unspecified (principal)
CPT/HCPCS: 90870; 94760; C9803; U0003

== ENCOUNTER 2020-05-13 06:48 | Day surgery (SDC) | payer OTHER ==
[2020-05-06 15:57] VITALS: BMI 47.4
[2020-05-13] MEDS ORDERED: KETAMINE HCL 500 MG/10 ML VIAL ONE (08:16)
[2020-05-13 10:23] VITALS: TEMP 98.1
[2020-05-13 10:44] VITALS: BP 129/86; PULSE 89
== END 2020-05-13 10:45 | disposition home or self-care (01) ==
LOC: FECT 06:48
PROVIDERS: ATTEND Psychiatry & Neurology Psychiatry
PROC: GZB4ZZZ Other Electroconvulsive Therapy (ICD-10-PCS; principal; 2020-05-13 10:00)
DX: F32.9 Major depressive disorder, single episode, unspecified (principal)
CPT/HCPCS: 90870; 94760

== ENCOUNTER 2020-05-31 06:38 | Day surgery (SDC) | payer OTHER ==
[2020-05-31 07:31] VITALS: TEMP 98.4
[2020-05-31 07:40] VITALS: BMI 47.5
[2020-05-31] MEDS ORDERED: KETAMINE HCL 500 MG/10 ML VIAL ONE (08:37)
[2020-05-31 10:18] VITALS: BP 146/90; PULSE 116
== END 2020-05-31 10:05 | disposition home or self-care (01) ==
LOC: FECT 06:38
PROVIDERS: ATTEND Psychiatry & Neurology Psychiatry
PROC: GZB4ZZZ Other Electroconvulsive Therapy (ICD-10-PCS; principal; 2020-05-31 10:00)
DX: F32.9 Major depressive disorder, single episode, unspecified (principal)
CPT/HCPCS: 90870; 94760; C9803; U0003

== ENCOUNTER 2020-06-03 08:06 | Day surgery (SDC) | payer OTHER ==
[2020-06-02 13:50] VITALS: BMI 47.4
[2020-06-03] MEDS ORDERED: PROPOFOL 20 ML ONE (08:25)
[2020-06-03] MEDS ORDERED: KETAMINE HCL 500 MG/10 ML VIAL ONE (08:47)
[2020-06-03 09:55] VITALS: BP 136/88; PULSE 94; TEMP 97.8
== END 2020-06-03 10:19 | disposition home or self-care (01) ==
LOC: FECT 08:06
PROVIDERS: ATTEND Psychiatry & Neurology Psychiatry
PROC: GZB4ZZZ Other Electroconvulsive Therapy (ICD-10-PCS; principal; 2020-06-03 09:00)
DX: F32.9 Major depressive disorder, single episode, unspecified (principal)
CPT/HCPCS: 90870; 94760; C9803; U0003

== ENCOUNTER 2020-06-07 07:38 | Day surgery (SDC) | payer OTHER ==
[2020-06-03 12:41] VITALS: BMI 47.4
[2020-06-07] MEDS ORDERED: KETAMINE HCL 500 MG/10 ML VIAL ONE (08:33)
[2020-06-07] MEDS ORDERED: PROPOFOL 20 ML ONE (08:44)
[2020-06-07 10:05] VITALS: TEMP 98.1
[2020-06-07 10:07] VITALS: BP 140/60; PULSE 91
== END 2020-06-07 10:00 | disposition home or self-care (01) ==
LOC: FECT 07:38
PROVIDERS: ATTEND Psychiatry & Neurology Psychiatry
PROC: GZB4ZZZ Other Electroconvulsive Therapy (ICD-10-PCS; principal; 2020-06-07 08:30)
DX: F32.9 Major depressive disorder, single episode, unspecified (principal)
CPT/HCPCS: 90870; 94760; C9803; U0003

== ENCOUNTER 2020-06-11 07:09 | Day surgery (SDC) | payer OTHER ==
[2020-06-08 18:15] VITALS: BMI 47.4
[2020-06-11] MEDS ORDERED: KETAMINE HCL 500 MG/10 ML VIAL ONE (08:19)
[2020-06-14 16:42] VITALS: BP 135/95; PULSE 86; TEMP 98.1
== END 2020-06-11 09:50 | disposition home or self-care (01) ==
LOC: FECT 07:09
PROVIDERS: ATTEND Psychiatry & Neurology Psychiatry
PROC: GZB4ZZZ Other Electroconvulsive Therapy (ICD-10-PCS; principal; 2020-06-11 09:00)
DX: F32.9 Major depressive disorder, single episode, unspecified (principal)
CPT/HCPCS: 90870; 94760; C9803; U0003

== ENCOUNTER 2020-06-14 06:46 | Day surgery (SDC) | payer OTHER ==
[2020-06-11 16:57] VITALS: BMI 47.4
[2020-06-14] MEDS ORDERED: KETAMINE HCL 500 MG/10 ML VIAL ONE (08:50)
[2020-06-14 10:43] VITALS: BP 130/90; PULSE 84; TEMP 98
== END 2020-06-14 10:25 | disposition home or self-care (01) ==
LOC: FECT 06:46
PROVIDERS: ATTEND Psychiatry & Neurology Psychiatry
PROC: GZB4ZZZ Other Electroconvulsive Therapy (ICD-10-PCS; principal; 2020-06-14 08:30)
DX: F33.2 Major depressive disorder, recurrent severe without psychotic features (principal)
CPT/HCPCS: 90870; 94760; C9803; U0003

== ENCOUNTER 2020-06-17 06:17 | Day surgery (SDC) | payer OTHER ==
[2020-06-11 15:18] VITALS: BMI 47.4
[2020-06-17] MEDS ORDERED: PROPOFOL 20 ML ONE (07:32)
[2020-06-17] MEDS ORDERED: SUCCINYLCHOLINE CHLORIDE 200 MG/10 ML SYRINGE ONE (07:33)
[2020-06-17] MEDS ORDERED: KETAMINE HCL 500 MG/10 ML VIAL ONE (07:33)
[2020-06-17] MEDS ORDERED: DEXAMETHASONE SOD PHOSPHATE 4 MG/1 ML VIAL ONE (07:34)
[2020-06-17] MEDS ORDERED: ONDANSETRON 4 MG/2 ML VIAL ONE (07:34)
[2020-06-17 08:27] VITALS: TEMP 97.8
[2020-06-17 08:48] VITALS: BP 136/92; PULSE 92
[2020-06-17] MEDS ORDERED: ONDANSETRON 4 MG/2 ML VIAL IVPUSH PRN (10:42)
[2020-06-17] MEDS ORDERED: LACTATED RINGERS SOLUTION 1,000 ML IV SCH (10:45)
== END 2020-06-17 08:50 | disposition home or self-care (01) ==
LOC: FECT 06:17
PROVIDERS: ATTEND Psychiatry & Neurology Psychiatry
PROC: GZB4ZZZ Other Electroconvulsive Therapy (ICD-10-PCS; principal; 2020-06-17 07:30)
DX: F32.9 Major depressive disorder, single episode, unspecified (principal)
CPT/HCPCS: 90870; 94760; C9803; U0003

== ENCOUNTER 2020-06-22 06:05 | Day surgery (SDC) | payer OTHER ==
[2020-06-15 10:52] VITALS: BMI 47.4
[2020-06-22] MEDS ORDERED: KETAMINE HCL 500 MG/10 ML VIAL ONE (07:15)
[2020-06-22 10:41] VITALS: TEMP 97.6
[2020-06-22 11:31] VITALS: BP 125/71; PULSE 86
== END 2020-06-22 09:15 | disposition home or self-care (01) ==
LOC: FECT 06:05
PROVIDERS: ATTEND Psychiatry & Neurology Psychiatry
PROC: GZB4ZZZ Other Electroconvulsive Therapy (ICD-10-PCS; principal; 2020-06-22 08:00)
DX: F32.9 Major depressive disorder, single episode, unspecified (principal)
CPT/HCPCS: 90870; 94760; C9803; U0003

== ENCOUNTER 2020-06-24 05:58 | Day surgery (SDC) | payer OTHER ==
[2020-06-16 13:16] VITALS: BMI 47.4
[2020-06-24] MEDS ORDERED: KETAMINE HCL 500 MG/10 ML VIAL ONE (07:03)
[2020-06-24] MEDS ORDERED: PROPOFOL 20 ML ONE (07:15)
[2020-06-24] MEDS ORDERED: SUCCINYLCHOLINE CHLORIDE 200 MG/10 ML SYRINGE ONE (07:15)
[2020-06-24 08:28] VITALS: BP 128/85; PULSE 108; TEMP 98
[2020-06-24] MEDS ORDERED: ONDANSETRON 4 MG/2 ML VIAL IVPUSH PRN (11:12)
[2020-06-24] MEDS ORDERED: LACTATED RINGERS SOLUTION 1,000 ML IV SCH (11:15)
== END 2020-06-24 08:29 | disposition home or self-care (01) ==
LOC: FECT 05:58
PROVIDERS: ATTEND Psychiatry & Neurology Psychiatry
PROC: GZB4ZZZ Other Electroconvulsive Therapy (ICD-10-PCS; principal; 2020-06-24 08:30)
DX: F33.2 Major depressive disorder, recurrent severe without psychotic features (principal)
CPT/HCPCS: 90870; 94760; C9803; U0003

== ENCOUNTER 2020-06-28 06:26 | Day surgery (SDC) | payer OTHER ==
[2020-06-28 07:16] VITALS: BMI 53.5
[2020-06-28] MEDS ORDERED: KETAMINE HCL 500 MG/10 ML VIAL ONE (07:47)
[2020-06-28 09:07] VITALS: TEMP 98.2
[2020-06-28 09:16] VITALS: BP 122/80; PULSE 88
== END 2020-06-28 09:20 | disposition home or self-care (01) ==
LOC: FECT 06:26
PROVIDERS: ATTEND Psychiatry & Neurology Psychiatry
PROC: GZB4ZZZ Other Electroconvulsive Therapy (ICD-10-PCS; principal; 2020-06-28 11:00)
DX: F32.9 Major depressive disorder, single episode, unspecified (principal)
CPT/HCPCS: 90870; 94760; C9803; U0003

== ENCOUNTER 2020-07-01 07:06 | Day surgery (SDC) | payer OTHER ==
[2020-07-01 07:37] VITALS: TEMP 97.6; BMI 52.8
[2020-07-01] MEDS ORDERED: KETAMINE HCL 500 MG/10 ML VIAL ONE (08:34)
[2020-07-01 09:59] VITALS: BP 130/81; PULSE 88
== END 2020-07-01 10:10 | disposition home or self-care (01) ==
LOC: FECT 07:06
PROVIDERS: ATTEND Psychiatry & Neurology Psychiatry
PROC: GZB4ZZZ Other Electroconvulsive Therapy (ICD-10-PCS; principal; 2020-07-01 08:30)
DX: F32.9 Major depressive disorder, single episode, unspecified (principal)
CPT/HCPCS: 90870; 94760; C9803; U0003

== ENCOUNTER 2020-07-08 06:44 | Day surgery (SDC) | payer OTHER ==
[2020-07-08 07:07] VITALS: BMI 51.9
[2020-07-08] MEDS ORDERED: KETAMINE HCL 500 MG/10 ML VIAL ONE (08:16)
[2020-07-08] MEDS ORDERED: PROPOFOL 20 ML ONE (08:17)
[2020-07-08 09:34] VITALS: TEMP 97.7
[2020-07-08 09:51] VITALS: BP 110/88; PULSE 98
== END 2020-07-08 09:50 | disposition home or self-care (01) ==
LOC: FECT 06:44
PROVIDERS: ATTEND Psychiatry & Neurology Psychiatry
PROC: GZB4ZZZ Other Electroconvulsive Therapy (ICD-10-PCS; principal; 2020-07-08 08:00)
DX: F32.9 Major depressive disorder, single episode, unspecified (principal)
CPT/HCPCS: 90870; 94760; C9803; U0003

== ENCOUNTER 2020-07-13 06:27 | Day surgery (SDC) | payer OTHER ==
[2020-07-08 15:13] VITALS: BMI 52.0
[2020-07-13] MEDS ORDERED: KETAMINE HCL 500 MG/10 ML VIAL ONE (08:11)
[2020-07-13 09:15] VITALS: TEMP 98.5
[2020-07-13 09:26] VITALS: BP 100/77; PULSE 89
== END 2020-07-13 09:30 | disposition home or self-care (01) ==
LOC: FECT 06:27
PROVIDERS: ATTEND Psychiatry & Neurology Psychiatry
PROC: GZB4ZZZ Other Electroconvulsive Therapy (ICD-10-PCS; principal; 2020-07-13 07:30)
DX: F32.9 Major depressive disorder, single episode, unspecified (principal)
CPT/HCPCS: 90870; 94760; C9803; U0003

== ENCOUNTER 2020-07-15 06:31 | Day surgery (SDC) | payer OTHER ==
[2020-07-15 07:26] VITALS: BMI 52.0
[2020-07-15] MEDS ORDERED: KETAMINE HCL 500 MG/10 ML VIAL ONE (08:07)
[2020-07-15 09:29] VITALS: BP 124/87; PULSE 95; TEMP 98.6
== END 2020-07-15 09:25 | disposition home or self-care (01) ==
LOC: FECT 06:31
PROVIDERS: ATTEND Psychiatry & Neurology Psychiatry
PROC: GZB4ZZZ Other Electroconvulsive Therapy (ICD-10-PCS; principal; 2020-07-15 08:00)
DX: F32.9 Major depressive disorder, single episode, unspecified (principal)
CPT/HCPCS: 90870; 94760; C9803; U0003

== ENCOUNTER 2020-07-19 07:04 | Day surgery (SDC) | payer OTHER ==
[2020-07-19 07:36] VITALS: BMI 51.7
[2020-07-19] MEDS ORDERED: KETAMINE HCL 500 MG/10 ML VIAL ONE (08:23)
[2020-07-19 09:34] VITALS: TEMP 97.9
[2020-07-19 09:56] VITALS: BP 124/72; PULSE 88
== END 2020-07-19 09:57 | disposition home or self-care (01) ==
LOC: FECT 07:04
PROVIDERS: ATTEND Psychiatry & Neurology Psychiatry
PROC: GZB4ZZZ Other Electroconvulsive Therapy (ICD-10-PCS; principal; 2020-07-19 08:30)
DX: F32.9 Major depressive disorder, single episode, unspecified (principal)
CPT/HCPCS: 90870; 94760; C9803; U0003

== ENCOUNTER 2020-07-22 06:35 | Day surgery (SDC) | payer OTHER ==
[2020-07-22 07:13] VITALS: BMI 52.7
[2020-07-22] MEDS ORDERED: KETAMINE HCL 500 MG/10 ML VIAL ONE (08:41)
[2020-07-22] MEDS ORDERED: SUCCINYLCHOLINE CHLORIDE 200 MG/10 ML SYRINGE ONE (08:45)
[2020-07-22 10:29] VITALS: TEMP 97.5
[2020-07-22 10:33] VITALS: BP 127/79; PULSE 98
[2020-07-22] MEDS ORDERED: LACTATED RINGERS SOLUTION 1,000 ML IV SCH (13:15)
== END 2020-07-22 10:16 | disposition home or self-care (01) ==
LOC: FECT 06:35
PROVIDERS: ATTEND Psychiatry & Neurology Psychiatry
PROC: GZB4ZZZ Other Electroconvulsive Therapy (ICD-10-PCS; principal; 2020-07-22 08:30)
DX: F32.9 Major depressive disorder, single episode, unspecified (principal)
CPT/HCPCS: 90870; 94760; C9803; U0003

== ENCOUNTER 2020-07-29 06:45 | Day surgery (SDC) | payer OTHER ==
[2020-07-22 17:23] VITALS: BMI 52.7
[2020-07-29] MEDS ORDERED: KETAMINE HCL 500 MG/10 ML VIAL ONE (08:12)
[2020-07-29 09:11] VITALS: TEMP 98.1
[2020-07-29 09:28] VITALS: BP 121/68; PULSE 67
== END 2020-07-29 09:35 | disposition home or self-care (01) ==
LOC: FECT 06:45
PROVIDERS: ATTEND Psychiatry & Neurology Psychiatry
PROC: GZB4ZZZ Other Electroconvulsive Therapy (ICD-10-PCS; principal; 2020-07-29 08:00)
DX: F32.9 Major depressive disorder, single episode, unspecified (principal)
CPT/HCPCS: 90870; 94760; C9803; U0003

== ENCOUNTER 2020-08-02 06:17 | Day surgery (SDC) | payer OTHER ==
[2020-08-02 06:54] VITALS: BMI 52.7
[2020-08-02] MEDS ORDERED: KETAMINE HCL 500 MG/10 ML VIAL ONE (07:35)
[2020-08-02 09:03] VITALS: TEMP 97.8
[2020-08-02 09:25] VITALS: BP 129/86; PULSE 81
== END 2020-08-02 09:27 | disposition home or self-care (01) ==
LOC: FECT 06:17
PROVIDERS: ATTEND Psychiatry & Neurology Psychiatry
PROC: GZB4ZZZ Other Electroconvulsive Therapy (ICD-10-PCS; principal; 2020-08-02 08:00)
DX: F32.9 Major depressive disorder, single episode, unspecified (principal)
CPT/HCPCS: 90870; 94760; C9803; U0003

== ENCOUNTER 2020-08-05 06:08 | Day surgery (SDC) | payer OTHER ==
[2020-08-05 06:52] VITALS: TEMP 98; BMI 52.0
[2020-08-05] MEDS ORDERED: SUCCINYLCHOLINE CHLORIDE 200 MG/10 ML SYRINGE ONE (07:34)
[2020-08-05] MEDS ORDERED: PROPOFOL 20 ML ONE ×2 (07:34→08:04)
[2020-08-05] MEDS ORDERED: KETAMINE HCL 200 MG/20 ML VIAL ONE (07:35)
[2020-08-05] MEDS ORDERED: KETAMINE HCL 500 MG/10 ML VIAL ONE (08:04)
[2020-08-05 08:45] VITALS: BP 121/84; PULSE 82
== END 2020-08-05 09:15 | disposition home or self-care (01) ==
LOC: FECT 06:08
PROVIDERS: ATTEND Psychiatry & Neurology Psychiatry
PROC: GZB4ZZZ Other Electroconvulsive Therapy (ICD-10-PCS; principal; 2020-08-05 07:30)
DX: F32.9 Major depressive disorder, single episode, unspecified (principal)
CPT/HCPCS: 90870; 94760; C9803; U0003

== ENCOUNTER 2020-08-10 05:50 | Day surgery (SDC) | payer OTHER ==
[2020-08-10 07:11] VITALS: BMI 52.9
[2020-08-10] MEDS ORDERED: KETAMINE HCL 500 MG/10 ML VIAL ONE (07:33)
[2020-08-10 08:29] VITALS: TEMP 97.9
[2020-08-10 09:10] VITALS: BP 121/66; PULSE 81
[2020-08-10 10:21] LABS: ALBUMIN 3.8 g/dl (3.4-5.0); BILIRUBIN,TOTAL 0.5 mg/dl (0.2-1); CALCIUM 8.6 mg/dl (8.5-10); CREATININE 0.8 mg/dl (0.55-1.3); MAGNESIUM 1.9 mg/dL (1.8-2.4); TOT PROT 6.4 g/dl (6.4-8.2)
[2020-08-10 10:29] LABS: BASO % 0.6 % (0-2.0); EOS % 7.6 % (0-4.5); LYMPH % 23.4 % (8-40); MCH 29.7 pg (25.7-33.7); MCHC 33.4 g/dl (32.0-35.9); MEAN PLT VOLUME 7.4 fl (7.5-11.1); MONO % 6.5 % (3.8-10.2); NEUT % 61.9 % (42.8-82.8); PLATELET COUNT 216 K/MM3 (134-434); RBC 4.72 M/mm3 (4.00-5.60); RDW 12.6 % (11.9-15.9); WHITE BLOOD COUNT 5.9 K/mm3 (4.0-10.8)
== END 2020-08-10 09:35 | disposition home or self-care (01) ==
LOC: FECT 05:50
PROVIDERS: ATTEND Psychiatry & Neurology Psychiatry
PROC: GZB4ZZZ Other Electroconvulsive Therapy (ICD-10-PCS; principal; 2020-08-10 09:00)
DX: F32.9 Major depressive disorder, single episode, unspecified (principal)
CPT/HCPCS: 36415; 80053; 83735; 85025; 90870; 93005; 94760; C9803; U0003

== ENCOUNTER 2020-08-12 05:43 | Day surgery (SDC) | payer OTHER ==
[2020-08-12 06:48] VITALS: BMI 52.4
[2020-08-12] MEDS ORDERED: KETAMINE HCL 500 MG/10 ML VIAL ONE (07:27)
[2020-08-12 08:01] VITALS: TEMP 98.3
[2020-08-12 08:54] VITALS: BP 131/77; PULSE 84
== END 2020-08-12 08:55 | disposition home or self-care (01) ==
LOC: FECT 05:43
PROVIDERS: ATTEND Psychiatry & Neurology Psychiatry
PROC: GZB4ZZZ Other Electroconvulsive Therapy (ICD-10-PCS; principal; 2020-08-12 07:30)
DX: F32.9 Major depressive disorder, single episode, unspecified (principal)
CPT/HCPCS: 90870; 94760; C9803; U0003

== ENCOUNTER 2020-08-16 06:49 | Day surgery (SDC) | payer OTHER ==
[2020-08-16 07:33] VITALS: BMI 52.1
[2020-08-16] MEDS ORDERED: KETAMINE HCL 500 MG/10 ML VIAL ONE (08:46)
[2020-08-16 09:56] VITALS: TEMP 98.1
[2020-08-16 10:13] VITALS: BP 116/71; PULSE 84
== END 2020-08-16 10:30 | disposition home or self-care (01) ==
LOC: FECT 06:49
PROVIDERS: ATTEND Psychiatry & Neurology Psychiatry
PROC: GZB4ZZZ Other Electroconvulsive Therapy (ICD-10-PCS; principal; 2020-08-16 09:00)
DX: F33.2 Major depressive disorder, recurrent severe without psychotic features (principal)
CPT/HCPCS: 90870; 94760; C9803; U0003

== ENCOUNTER 2020-08-20 05:53 | Day surgery (SDC) | payer OTHER ==
[2020-08-20 06:36] VITALS: BMI 38.0
[2020-08-20] MEDS ORDERED: KETAMINE HCL 500 MG/10 ML VIAL ONE (07:20)
[2020-08-20] MEDS ORDERED: SUCCINYLCHOLINE CHLORIDE 200 MG/10 ML SYRINGE ONE (07:28)
[2020-08-20 07:56] VITALS: TEMP 98.3
[2020-08-20 08:48] VITALS: BP 125/85; PULSE 89
== END 2020-08-20 09:15 | disposition home or self-care (01) ==
LOC: FECT 05:53
PROVIDERS: ATTEND Psychiatry & Neurology Psychiatry
PROC: GZB4ZZZ Other Electroconvulsive Therapy (ICD-10-PCS; principal; 2020-08-20 08:30)
DX: F32.9 Major depressive disorder, single episode, unspecified (principal)
CPT/HCPCS: 90870; 94760; C9803; U0003

== ENCOUNTER 2020-08-23 06:31 | Day surgery (SDC) | payer OTHER ==
[2020-08-23 07:31] VITALS: BMI 52.6
[2020-08-23] MEDS ORDERED: KETAMINE HCL 500 MG/10 ML VIAL ONE (08:27)
[2020-08-23] MEDS ORDERED: ONDANSETRON 4 MG/2 ML VIAL ONE (09:27)
[2020-08-23 09:37] VITALS: TEMP 98
[2020-08-23 10:08] VITALS: BP 126/81; PULSE 99
[2020-08-23] MEDS ORDERED: LACTATED RINGERS SOLUTION 1,000 ML IV SCH (12:00)
== END 2020-08-23 10:10 | disposition home or self-care (01) ==
LOC: FECT 06:31
PROVIDERS: ATTEND Psychiatry & Neurology Psychiatry
PROC: GZB4ZZZ Other Electroconvulsive Therapy (ICD-10-PCS; principal; 2020-08-23 08:30)
DX: F32.9 Major depressive disorder, single episode, unspecified (principal)
CPT/HCPCS: 90870; 94760; C9803; U0003

== ENCOUNTER 2020-08-26 06:02 | Day surgery (SDC) | payer OTHER ==
[2020-08-26 06:39] VITALS: BMI 52.4
[2020-08-26] MEDS ORDERED: KETAMINE HCL 500 MG/10 ML VIAL ONE (07:17)
[2020-08-26] MEDS ORDERED: PROPOFOL 20 ML ONE (07:24)
[2020-08-26] MEDS ORDERED: SUCCINYLCHOLINE CHLORIDE 200 MG/10 ML SYRINGE ONE (07:24)
[2020-08-26 08:20] VITALS: TEMP 98.9
[2020-08-26 08:46] VITALS: BP 112/70; PULSE 87
== END 2020-08-26 08:40 | disposition home or self-care (01) ==
LOC: FECT 06:02
PROVIDERS: ATTEND Psychiatry & Neurology Psychiatry
PROC: GZB4ZZZ Other Electroconvulsive Therapy (ICD-10-PCS; principal; 2020-08-26 07:30)
DX: F32.9 Major depressive disorder, single episode, unspecified (principal)
CPT/HCPCS: 90870; 94760; C9803; U0003

== ENCOUNTER 2020-08-30 05:52 | Day surgery (SDC) | payer OTHER ==
[2020-08-30 06:43] VITALS: BMI 52.4
[2020-08-30] MEDS ORDERED: KETAMINE HCL 500 MG/10 ML VIAL ONE (07:32)
[2020-08-30 08:55] VITALS: BP 117/73; PULSE 95; TEMP 98.8
== END 2020-08-30 08:50 | disposition home or self-care (01) ==
LOC: FECT 05:52
PROVIDERS: ATTEND Psychiatry & Neurology Psychiatry
PROC: GZB4ZZZ Other Electroconvulsive Therapy (ICD-10-PCS; principal; 2020-08-30 08:00)
DX: F32.9 Major depressive disorder, single episode, unspecified (principal)
CPT/HCPCS: 90870; 94760; C9803; U0003

== ENCOUNTER 2020-09-02 06:02 | Day surgery (SDC) | payer OTHER ==
[2020-09-02 06:44] VITALS: BMI 52.6
[2020-09-02] MEDS ORDERED: KETAMINE HCL 500 MG/10 ML VIAL ONE (07:28)
[2020-09-02] MEDS ORDERED: SUCCINYLCHOLINE CHLORIDE 200 MG/10 ML SYRINGE ONE (07:31)
[2020-09-02] MEDS ORDERED: PROPOFOL 20 ML ONE (07:31)
[2020-09-02 08:48] VITALS: TEMP 98.4
[2020-09-02 08:50] VITALS: BP 126/78; PULSE 82
== END 2020-09-02 08:47 | disposition home or self-care (01) ==
LOC: FECT 06:02
PROVIDERS: ATTEND Psychiatry & Neurology Psychiatry
PROC: GZB4ZZZ Other Electroconvulsive Therapy (ICD-10-PCS; principal; 2020-09-02 08:00)
DX: F32.9 Major depressive disorder, single episode, unspecified (principal)
CPT/HCPCS: 90870; 94760; C9803; U0003

== ENCOUNTER 2020-09-06 06:03 | Day surgery (SDC) | payer OTHER ==
[2020-09-06 07:09] VITALS: BMI 52.6
[2020-09-06] MEDS ORDERED: KETAMINE HCL 500 MG/10 ML VIAL ONE (07:51)
[2020-09-06 08:57] VITALS: TEMP 98.2
[2020-09-06 09:31] VITALS: BP 115/79; PULSE 77
== END 2020-09-06 09:20 | disposition home or self-care (01) ==
LOC: FECT 06:03
PROVIDERS: ATTEND Psychiatry & Neurology Psychiatry
PROC: GZB4ZZZ Other Electroconvulsive Therapy (ICD-10-PCS; principal; 2020-09-06 08:00)
DX: F32.9 Major depressive disorder, single episode, unspecified (principal)
CPT/HCPCS: 90870; 94760

== ENCOUNTER 2020-09-13 06:02 | Day surgery (SDC) | payer OTHER ==
[2020-09-13 07:01] VITALS: BMI 51.7
[2020-09-13] MEDS ORDERED: KETAMINE HCL 500 MG/10 ML VIAL ONE (07:45)
[2020-09-13] MEDS ORDERED: LIDOCAINE HCL/PF 2% SDV 5ML VIAL ONE (07:51)
[2020-09-13 08:43] VITALS: BP 104/67; TEMP 97.6
[2020-09-13 09:11] VITALS: PULSE 72
== END 2020-09-13 09:10 | disposition home or self-care (01) ==
LOC: FECT 06:02
PROVIDERS: ATTEND Psychiatry & Neurology Psychiatry
PROC: GZB4ZZZ Other Electroconvulsive Therapy (ICD-10-PCS; principal; 2020-09-13 08:00)
DX: F32.9 Major depressive disorder, single episode, unspecified (principal)
CPT/HCPCS: 90870; 94760

== ENCOUNTER 2020-09-20 05:56 | Day surgery (SDC) | payer OTHER ==
[2020-09-20 06:47] VITALS: BMI 52.2
[2020-09-20] MEDS ORDERED: KETAMINE HCL 500 MG/10 ML VIAL ONE (07:51)
[2020-09-20] MEDS ORDERED: ONDANSETRON 4 MG/2 ML VIAL ONE (07:56)
[2020-09-20 08:56] VITALS: TEMP 97.8
[2020-09-20 09:26] VITALS: BP 127/74; PULSE 76
[2020-09-20] MEDS ORDERED: ACETAMINOPHEN 500 MG TABLET (FP) PO PRN (10:16)
[2020-09-20] MEDS ORDERED: PROMETHAZINE HCL 25 MG/1 ML VIAL IVPUSH PRN (10:16)
[2020-09-20] MEDS ORDERED: LACTATED RINGERS SOLUTION 1,000 ML IV SCH (10:30)
== END 2020-09-20 09:38 | disposition home or self-care (01) ==
LOC: FECT 05:56
PROVIDERS: ATTEND Psychiatry & Neurology Psychiatry
PROC: GZB4ZZZ Other Electroconvulsive Therapy (ICD-10-PCS; principal; 2020-09-20 08:00)
DX: F32.9 Major depressive disorder, single episode, unspecified (principal)
CPT/HCPCS: 90870; 94760; C9803; U0003

== ENCOUNTER 2020-09-23 05:51 | Day surgery (SDC) | payer OTHER ==
[2020-09-23 06:43] VITALS: BMI 52.1
[2020-09-23] MEDS ORDERED: KETAMINE HCL 500 MG/10 ML VIAL ONE (07:09)
[2020-09-23] MEDS ORDERED: SUCCINYLCHOLINE CHLORIDE 200 MG/10 ML SYRINGE ONE (07:37)
[2020-09-23] MEDS ORDERED: PROPOFOL 20 ML ONE ×2 (07:38)
[2020-09-23 08:35] VITALS: TEMP 98
[2020-09-23 08:51] VITALS: BP 120/74; PULSE 76
== END 2020-09-23 09:00 | disposition home or self-care (01) ==
LOC: FECT 05:51
PROVIDERS: ATTEND Psychiatry & Neurology Psychiatry
PROC: GZB4ZZZ Other Electroconvulsive Therapy (ICD-10-PCS; principal; 2020-09-23 07:30)
DX: F32.9 Major depressive disorder, single episode, unspecified (principal)
CPT/HCPCS: 90870; 94760; C9803; U0003

== ENCOUNTER 2020-09-27 05:59 | Day surgery (SDC) | payer OTHER ==
[2020-09-27 06:43] VITALS: BMI 52.1
[2020-09-27] MEDS ORDERED: KETAMINE HCL 500 MG/10 ML VIAL ONE (07:21)
[2020-09-27] MEDS ORDERED: PROPOFOL 20 ML ONE ×2 (07:44)
[2020-09-27] MEDS ORDERED: SUCCINYLCHOLINE CHLORIDE 200 MG/10 ML SYRINGE ONE (07:45)
[2020-09-27 08:24] VITALS: TEMP 98.2
[2020-09-27 09:17] VITALS: BP 112/62; PULSE 81
[2020-09-28 10:09] LABS: SARS-CoV-2 NAA Not Detected (Not Detected)
== END 2020-09-27 09:20 | disposition home or self-care (01) ==
LOC: FECT 05:59
PROVIDERS: ATTEND Psychiatry & Neurology Psychiatry
PROC: GZB4ZZZ Other Electroconvulsive Therapy (ICD-10-PCS; principal; 2020-09-27 08:00)
DX: F32.9 Major depressive disorder, single episode, unspecified (principal)
CPT/HCPCS: 90870; 94760; C9803; U0003; U0005

== ENCOUNTER 2020-09-30 07:35 | Day surgery (SDC) | payer OTHER ==
[2020-09-30 08:07] VITALS: BMI 51.7
[2020-09-30] MEDS ORDERED: KETAMINE HCL 500 MG/10 ML VIAL ONE (09:19)
[2020-09-30 10:26] VITALS: TEMP 98.6
[2020-09-30 10:38] VITALS: BP 121/79; PULSE 79
[2020-10-01 10:08] LABS: SARS-CoV-2 NAA Not Detected (Not Detected)
== END 2020-09-30 10:40 | disposition home or self-care (01) ==
LOC: FECT 07:35
PROVIDERS: ATTEND Psychiatry & Neurology Psychiatry
PROC: GZB4ZZZ Other Electroconvulsive Therapy (ICD-10-PCS; principal; 2020-09-30 08:00)
DX: F32.9 Major depressive disorder, single episode, unspecified (principal)
CPT/HCPCS: 90870; 94760; C9803; U0003; U0005

== ENCOUNTER 2020-10-04 06:33 | Day surgery (SDC) | payer OTHER ==
[2020-10-04 07:08] VITALS: BMI 51.7
[2020-10-04] MEDS ORDERED: KETAMINE HCL 500 MG/10 ML VIAL ONE (08:03)
[2020-10-04] MEDS ORDERED: PROPOFOL 20 ML ONE (08:07)
[2020-10-04] MEDS ORDERED: LIDOCAINE HCL/PF 2% SDV 5ML VIAL ONE (08:07)
[2020-10-04] MEDS ORDERED: SUCCINYLCHOLINE CHLORIDE 200 MG/10 ML SYRINGE ONE (08:08)
[2020-10-04] MEDS ORDERED: ONDANSETRON 4 MG/2 ML VIAL IVPUSH PRN (08:47)
[2020-10-04 08:51] VITALS: TEMP 98.7
[2020-10-04] MEDS ORDERED: LACTATED RINGERS SOLUTION 1,000 ML IV SCH (09:00)
[2020-10-04 09:28] VITALS: BP 121/81; PULSE 79
[2020-10-05 10:07] LABS: SARS-CoV-2 NAA Not Detected (Not Detected)
== END 2020-10-04 09:30 | disposition home or self-care (01) ==
LOC: FECT 06:33
PROVIDERS: ATTEND Psychiatry & Neurology Psychiatry
PROC: GZB4ZZZ Other Electroconvulsive Therapy (ICD-10-PCS; principal; 2020-10-04 08:30)
DX: F32.9 Major depressive disorder, single episode, unspecified (principal)
CPT/HCPCS: 90870; 94760; C9803; U0003; U0005

== ENCOUNTER 2020-10-07 06:12 | Day surgery (SDC) | payer OTHER ==
[2020-10-04 17:48] VITALS: BMI 51.8
[2020-10-07] MEDS ORDERED: KETAMINE HCL 500 MG/10 ML VIAL ONE (07:24)
[2020-10-07 08:25] VITALS: TEMP 97.9
[2020-10-07 08:53] VITALS: BP 121/78; PULSE 72
[2020-10-08 11:08] LABS: SARS-CoV-2 NAA Not Detected (Not Detected)
== END 2020-10-07 08:50 | disposition home or self-care (01) ==
LOC: FECT 06:12
PROVIDERS: ATTEND Psychiatry & Neurology Psychiatry
PROC: GZB4ZZZ Other Electroconvulsive Therapy (ICD-10-PCS; principal; 2020-10-07 07:30)
DX: F32.9 Major depressive disorder, single episode, unspecified (principal)
CPT/HCPCS: 90870; 94760; C9803; U0003; U0005

== ENCOUNTER 2020-10-11 06:00 | Day surgery (SDC) | payer OTHER ==
[2020-10-11 07:10] VITALS: BMI 51.8
[2020-10-11] MEDS ORDERED: KETAMINE HCL 500 MG/10 ML VIAL ONE (07:42)
[2020-10-11 08:55] VITALS: TEMP 98.1
[2020-10-11 09:18] VITALS: BP 122/89; PULSE 77
[2020-10-12 09:08] LABS: SARS-CoV-2 NAA Not Detected (Not Detected)
== END 2020-10-11 09:15 | disposition home or self-care (01) ==
LOC: FECT 06:00
PROVIDERS: ATTEND Psychiatry & Neurology Psychiatry
PROC: GZB4ZZZ Other Electroconvulsive Therapy (ICD-10-PCS; principal; 2020-10-11 08:00)
DX: F32.9 Major depressive disorder, single episode, unspecified (principal)
CPT/HCPCS: 90870; 94760; C9803; U0003; U0005

== ENCOUNTER 2020-10-14 07:57 | Day surgery (SDC) | payer OTHER ==
[2020-10-14] MEDS ORDERED: KETAMINE HCL 500 MG/10 ML VIAL ONE (08:53)
[2020-10-14 09:02] VITALS: BMI 51.8
[2020-10-14 09:48] VITALS: TEMP 99.3
[2020-10-14 10:28] VITALS: BP 149/89; PULSE 89
[2020-10-15 10:08] LABS: SARS-CoV-2 NAA Not Detected (Not Detected)
== END 2020-10-14 10:20 | disposition home or self-care (01) ==
LOC: FECT 07:57
PROVIDERS: ATTEND Psychiatry & Neurology Psychiatry
PROC: GZB4ZZZ Other Electroconvulsive Therapy (ICD-10-PCS; principal; 2020-10-14 09:15)
DX: F32.9 Major depressive disorder, single episode, unspecified (principal)
CPT/HCPCS: 90870; 94760; C9803; U0003; U0005

== ENCOUNTER 2020-10-18 06:21 | Day surgery (SDC) | payer OTHER ==
[2020-10-18 07:37] VITALS: BMI 52.3
[2020-10-18] MEDS ORDERED: KETAMINE HCL 500 MG/10 ML VIAL ONE (08:14)
[2020-10-18 09:17] VITALS: TEMP 98.3
[2020-10-18 09:33] VITALS: BP 144/93; PULSE 86
[2020-10-19 08:09] LABS: SARS-CoV-2 NAA Not Detected (Not Detected)
== END 2020-10-18 09:35 | disposition home or self-care (01) ==
LOC: FECT 06:21
PROVIDERS: ATTEND Psychiatry & Neurology Psychiatry
PROC: GZB4ZZZ Other Electroconvulsive Therapy (ICD-10-PCS; principal; 2020-10-18 07:30)
DX: F32.9 Major depressive disorder, single episode, unspecified (principal)
CPT/HCPCS: 90870; 94760; C9803; U0003; U0005

== ENCOUNTER 2020-10-21 05:55 | Day surgery (SDC) | payer OTHER ==
[2020-10-21 06:33] VITALS: BMI 51.5
[2020-10-21] MEDS ORDERED: KETAMINE HCL 500 MG/10 ML VIAL ONE (07:16)
[2020-10-21] MEDS ORDERED: ONDANSETRON 4 MG/2 ML VIAL ONE (07:30)
[2020-10-21] MEDS ORDERED: DEXAMETHASONE SOD PHOSPHATE 4 MG/1 ML VIAL ONE (07:30)
[2020-10-21] MEDS ORDERED: LIDOCAINE HCL/PF 2% SDV 5ML VIAL ONE (07:30)
[2020-10-21 09:05] VITALS: TEMP 98.7
[2020-10-21 09:09] VITALS: BP 135/90; PULSE 82
[2020-10-21] MEDS ORDERED: ONDANSETRON 4 MG/2 ML VIAL IVPUSH PRN (10:19)
[2020-10-21] MEDS ORDERED: oxyCODONE HCL 5 MG TABLET PO PRN (10:19)
[2020-10-21] MEDS ORDERED: LACTATED RINGERS SOLUTION 1,000 ML IV SCH (10:30)
[2020-10-22 10:07] LABS: SARS-CoV-2 NAA Not Detected (Not Detected)
== END 2020-10-21 08:55 | disposition home or self-care (01) ==
LOC: FECT 05:55
PROVIDERS: ATTEND Psychiatry & Neurology Psychiatry
PROC: GZB4ZZZ Other Electroconvulsive Therapy (ICD-10-PCS; principal; 2020-10-21 08:00)
DX: F32.9 Major depressive disorder, single episode, unspecified (principal)
CPT/HCPCS: 90870; 94760; C9803; U0003; U0005

== ENCOUNTER 2020-10-25 05:54 | Day surgery (SDC) | payer OTHER ==
[2020-10-25 06:46] VITALS: BMI 50.7
[2020-10-25] MEDS ORDERED: KETAMINE HCL 500 MG/10 ML VIAL ONE (07:23)
[2020-10-25 08:40] VITALS: BP 141/90; PULSE 77
[2020-10-25 08:57] VITALS: TEMP 97.7
[2020-10-26 12:07] LABS: SARS-CoV-2 NAA Not Detected (Not Detected)
== END 2020-10-25 08:45 | disposition home or self-care (01) ==
LOC: FECT 05:54
PROVIDERS: ATTEND Psychiatry & Neurology Psychiatry
PROC: GZB4ZZZ Other Electroconvulsive Therapy (ICD-10-PCS; principal; 2020-10-25 08:00)
DX: F32.9 Major depressive disorder, single episode, unspecified (principal)
CPT/HCPCS: 90870; 94760; C9803; U0003; U0005

== ENCOUNTER 2020-10-28 05:56 | Day surgery (SDC) | payer OTHER ==
[2020-10-28 07:24] VITALS: BMI 50.7
[2020-10-28] MEDS ORDERED: KETAMINE HCL 500 MG/10 ML VIAL ONE (09:20)
[2020-10-28] MEDS ORDERED: KETOROLAC TROMETHAMINE 30 MG/1 ML VIAL ONE (10:03)
[2020-10-28 10:37] VITALS: BP 133/84; PULSE 87; TEMP 98.6
== END 2020-10-28 08:35 | disposition home or self-care (01) ==
LOC: FECT 05:56
PROVIDERS: ATTEND Psychiatry & Neurology Psychiatry
PROC: GZB4ZZZ Other Electroconvulsive Therapy (ICD-10-PCS; principal; 2020-10-28 10:30)
DX: F32.9 Major depressive disorder, single episode, unspecified (principal)
CPT/HCPCS: 90870; 94760

== ENCOUNTER 2020-11-01 05:58 | Day surgery (SDC) | payer OTHER ==
[2020-11-01 06:35] VITALS: BMI 51.2
[2020-11-01] MEDS ORDERED: KETAMINE HCL 500 MG/10 ML VIAL ONE (07:24)
[2020-11-01] MEDS ORDERED: PROPOFOL 20 ML ONE ×2 (07:28)
[2020-11-01] MEDS ORDERED: ONDANSETRON 4 MG/2 ML VIAL ONE (07:28)
[2020-11-01] MEDS ORDERED: SUCCINYLCHOLINE CHLORIDE 200 MG/10 ML SYRINGE ONE (07:29)
[2020-11-01] MEDS ORDERED: LIDOCAINE HCL/PF 2% SDV 5ML VIAL ONE (07:33)
[2020-11-01 07:53] VITALS: TEMP 97.3
[2020-11-01 08:39] VITALS: BP 125/81; PULSE 78
[2020-11-02 08:09] LABS: SARS-CoV-2 NAA Not Detected (Not Detected)
== END 2020-11-01 08:59 | disposition home or self-care (01) ==
LOC: FECT 05:58
PROVIDERS: ATTEND Psychiatry & Neurology Psychiatry
PROC: GZB4ZZZ Other Electroconvulsive Therapy (ICD-10-PCS; principal; 2020-11-01 07:30)
DX: F32.9 Major depressive disorder, single episode, unspecified (principal)
CPT/HCPCS: 90870; 94760; C9803; U0003; U0005

== ENCOUNTER 2020-11-04 06:04 | Day surgery (SDC) | payer OTHER ==
[2020-11-04 06:31] VITALS: BMI 51.2
[2020-11-04] MEDS ORDERED: KETAMINE HCL 500 MG/10 ML VIAL ONE (07:26)
[2020-11-04] MEDS ORDERED: SUCCINYLCHOLINE CHLORIDE 200 MG/10 ML SYRINGE ONE (07:38)
[2020-11-04 08:40] VITALS: TEMP 98.6
[2020-11-04 09:06] VITALS: BP 132/78; PULSE 77
[2020-11-05 07:07] LABS: SARS-CoV-2 NAA Not Detected (Not Detected)
== END 2020-11-04 08:50 | disposition home or self-care (01) ==
LOC: FECT 06:04
PROVIDERS: ATTEND Psychiatry & Neurology Psychiatry
PROC: GZB4ZZZ Other Electroconvulsive Therapy (ICD-10-PCS; principal; 2020-11-04 09:00)
DX: F32.9 Major depressive disorder, single episode, unspecified (principal)
CPT/HCPCS: 90870; 94760; C9803; U0003; U0005

== ENCOUNTER 2020-11-08 05:53 | Day surgery (SDC) | payer OTHER ==
[2020-11-08 06:55] VITALS: BMI 52.4
[2020-11-08] MEDS ORDERED: KETAMINE HCL 500 MG/10 ML VIAL ONE ×2 (07:09→08:10)
[2020-11-08 08:58] VITALS: TEMP 98.4
[2020-11-08 09:36] VITALS: BP 140/88; PULSE 88
[2020-11-09 07:07] LABS: SARS-CoV-2 NAA Not Detected (Not Detected)
== END 2020-11-08 09:40 | disposition home or self-care (01) ==
LOC: FECT 05:53
PROVIDERS: ATTEND Psychiatry & Neurology Psychiatry
PROC: GZB4ZZZ Other Electroconvulsive Therapy (ICD-10-PCS; principal; 2020-11-08 09:30)
DX: F32.9 Major depressive disorder, single episode, unspecified (principal)
CPT/HCPCS: 90870; 94760; C9803; U0003; U0005

== ENCOUNTER 2020-11-11 05:56 | Day surgery (SDC) | payer OTHER ==
[2020-11-11 06:33] VITALS: TEMP 98.2; BMI 52.4
[2020-11-11] MEDS ORDERED: KETAMINE HCL 500 MG/10 ML VIAL ONE (06:56)
[2020-11-11] MEDS ORDERED: METOPROLOL TARTRATE 5 MG/5 ML VIAL ONE (07:44)
[2020-11-11 09:04] VITALS: BP 140/88; PULSE 77
== END 2020-11-11 08:25 | disposition home or self-care (01) ==
LOC: FECT 05:56
PROVIDERS: ATTEND Psychiatry & Neurology Psychiatry
PROC: GZB4ZZZ Other Electroconvulsive Therapy (ICD-10-PCS; principal; 2020-11-11 06:45)
DX: F32.9 Major depressive disorder, single episode, unspecified (principal)
CPT/HCPCS: 90870; 94760

== ENCOUNTER 2020-11-25 08:40 | Day surgery (SDC) | payer OTHER ==
[2020-11-25 09:16] VITALS: BMI 51.0
[2020-11-25] MEDS ORDERED: KETAMINE HCL 500 MG/10 ML VIAL ONE (10:04)
[2020-11-25 10:41] VITALS: TEMP 98.6
[2020-11-25 11:29] VITALS: BP 136/69; PULSE 65
== END 2020-11-25 11:30 | disposition home or self-care (01) ==
LOC: FASU 08:40
PROVIDERS: ATTEND Psychiatry & Neurology Psychiatry
PROC: GZB4ZZZ Other Electroconvulsive Therapy (ICD-10-PCS; principal; 2020-11-25 09:00)
DX: F33.2 Major depressive disorder, recurrent severe without psychotic features (principal)
CPT/HCPCS: 90870; 94760

== ENCOUNTER 2020-11-29 05:57 | Day surgery (SDC) | payer OTHER ==
[2020-11-29 06:39] VITALS: BMI 50.7
[2020-11-29] MEDS ORDERED: KETAMINE HCL 500 MG/10 ML VIAL ONE (07:11)
[2020-11-29] MEDS ORDERED: SUCCINYLCHOLINE CHLORIDE 200 MG/10 ML SYRINGE ONE (07:16)
[2020-11-29] MEDS ORDERED: PROPOFOL 20 ML ONE (07:16)
[2020-11-29 08:09] VITALS: TEMP 98.4
[2020-11-29 08:32] VITALS: BP 114/81; PULSE 82
== END 2020-11-29 08:34 | disposition home or self-care (01) ==
LOC: FECT 05:57
PROVIDERS: ATTEND Psychiatry & Neurology Psychiatry
PROC: GZB4ZZZ Other Electroconvulsive Therapy (ICD-10-PCS; principal; 2020-11-29 08:30)
DX: F32.9 Major depressive disorder, single episode, unspecified (principal)
CPT/HCPCS: 90870; 94760

== ENCOUNTER 2020-12-02 08:27 | Day surgery (SDC) | payer OTHER ==
[2020-12-02 08:59] VITALS: BMI 50.3
[2020-12-02] MEDS ORDERED: KETAMINE HCL 500 MG/10 ML VIAL ONE (10:09)
[2020-12-02] MEDS ORDERED: PROPOFOL 20 ML ONE (10:12)
[2020-12-02 11:01] VITALS: TEMP 98.6
[2020-12-02] MEDS ORDERED: ONDANSETRON 4 MG/2 ML VIAL IVPUSH PRN (11:56)
[2020-12-02] MEDS ORDERED: LACTATED RINGERS SOLUTION 1,000 ML IV SCH (12:00)
[2020-12-02 12:49] VITALS: BP 140/89; PULSE 84
== END 2020-12-02 11:40 | disposition home or self-care (01) ==
LOC: FECT 08:27
PROVIDERS: ATTEND Psychiatry & Neurology Psychiatry
PROC: GZB4ZZZ Other Electroconvulsive Therapy (ICD-10-PCS; principal; 2020-12-02 09:30)
DX: F32.9 Major depressive disorder, single episode, unspecified (principal)
CPT/HCPCS: 90870; 94760

== ENCOUNTER 2020-12-06 09:47 | Day surgery (SDC) | payer OTHER ==
[2020-12-06 10:51] VITALS: BMI 50.8
[2020-12-06] MEDS ORDERED: KETAMINE HCL 500 MG/10 ML VIAL ONE (12:21)
[2020-12-06] MEDS ORDERED: SUCCINYLCHOLINE CHLORIDE 200 MG/10 ML SYRINGE ONE (12:24)
[2020-12-06] MEDS ORDERED: DEXAMETHASONE SOD PHOSPHATE 4 MG/1 ML VIAL ONE (12:24)
[2020-12-06] MEDS ORDERED: PROPOFOL 20 ML ONE (12:24)
[2020-12-06] MEDS ORDERED: LIDOCAINE HCL/PF 2% SDV 5ML VIAL ONE (12:26)
[2020-12-06 13:16] VITALS: TEMP 97.8
[2020-12-06 13:54] VITALS: BP 124/76; PULSE 66
== END 2020-12-06 13:56 | disposition home or self-care (01) ==
LOC: FECT 09:47
PROVIDERS: ATTEND Psychiatry & Neurology Psychiatry
PROC: GZB4ZZZ Other Electroconvulsive Therapy (ICD-10-PCS; principal; 2020-12-06 12:00)
DX: F32.9 Major depressive disorder, single episode, unspecified (principal)
CPT/HCPCS: 90870; 94760

== ENCOUNTER 2020-12-09 05:57 | Day surgery (SDC) | payer OTHER ==
[2020-12-06 17:15] VITALS: BMI 50.8
[2020-12-09] MEDS ORDERED: KETAMINE HCL 500 MG/10 ML VIAL ONE (07:05)
[2020-12-09] MEDS ORDERED: ACETAMINOPHEN 325 MG TABLET (FP) ONE (08:20)
[2020-12-09 09:50] VITALS: TEMP 98.4
[2020-12-09 09:52] VITALS: BP 132/78; PULSE 86
== END 2020-12-09 08:52 | disposition home or self-care (01) ==
LOC: FECT 05:57
PROVIDERS: ATTEND Psychiatry & Neurology Psychiatry
PROC: GZB4ZZZ Other Electroconvulsive Therapy (ICD-10-PCS; principal; 2020-12-09 07:30)
DX: F32.9 Major depressive disorder, single episode, unspecified (principal)
CPT/HCPCS: 90870; 94760

== ENCOUNTER 2020-12-13 09:01 | Day surgery (SDC) | payer OTHER ==
[2020-12-13 09:36] VITALS: BMI 50.6
[2020-12-13] MEDS ORDERED: KETAMINE HCL 500 MG/10 ML VIAL ONE (10:39)
[2020-12-13 11:28] VITALS: TEMP 98.4
[2020-12-13 11:58] VITALS: BP 139/90; PULSE 79
== END 2020-12-13 11:55 | disposition home or self-care (01) ==
LOC: FECT 09:01
PROVIDERS: ATTEND Psychiatry & Neurology Psychiatry
PROC: GZB4ZZZ Other Electroconvulsive Therapy (ICD-10-PCS; principal; 2020-12-13 10:30)
DX: F33.2 Major depressive disorder, recurrent severe without psychotic features (principal)
CPT/HCPCS: 90870; 94760

== ENCOUNTER 2020-12-16 06:05 | Day surgery (SDC) | payer OTHER ==
[2020-12-16] MEDS ORDERED: KETAMINE HCL 500 MG/10 ML VIAL ONE (07:30)
[2020-12-16] MEDS ORDERED: LACTATED RINGERS SOLUTION 1,000 ML IV SCH (07:45)
[2020-12-16] MEDS ORDERED: LIDOCAINE HCL/PF 2% SDV 5ML VIAL ONE (07:49)
[2020-12-16 08:36] VITALS: TEMP 98.2
[2020-12-16 09:18] VITALS: BP 128/82; PULSE 78
== END 2020-12-16 09:20 | disposition home or self-care (01) ==
LOC: FECT 06:05
PROVIDERS: ATTEND Psychiatry & Neurology Psychiatry
PROC: GZB4ZZZ Other Electroconvulsive Therapy (ICD-10-PCS; principal; 2020-12-16 07:30)
DX: F33.2 Major depressive disorder, recurrent severe without psychotic features (principal)
CPT/HCPCS: 90870; 94760

== ENCOUNTER 2020-12-20 06:04 | Day surgery (SDC) | payer OTHER ==
[2020-12-15 15:09] VITALS: BMI 50.6
[2020-12-20] MEDS ORDERED: KETAMINE HCL 500 MG/10 ML VIAL ONE (07:06)
[2020-12-20] MEDS ORDERED: ACETAMINOPHEN 325 MG TABLET (FP) ONE (07:48)
[2020-12-20 08:17] VITALS: TEMP 98.7
[2020-12-20 08:33] VITALS: BP 135/89; PULSE 77
[2020-12-20] MEDS ORDERED: PROMETHAZINE HCL 25 MG/1 ML VIAL IVPB PRN (10:36)
[2020-12-20] MEDS ORDERED: ACETAMINOPHEN 325 MG TABLET (FP) PO PRN (10:36)
[2020-12-20] MEDS ORDERED: LACTATED RINGERS SOLUTION 1,000 ML IV SCH (10:45)
== END 2020-12-20 08:30 | disposition home or self-care (01) ==
LOC: FECT 06:04
PROVIDERS: ATTEND Psychiatry & Neurology Psychiatry
PROC: GZB4ZZZ Other Electroconvulsive Therapy (ICD-10-PCS; principal; 2020-12-20 08:00)
DX: F33.2 Major depressive disorder, recurrent severe without psychotic features (principal)
CPT/HCPCS: 90870; 94760

== ENCOUNTER 2020-12-23 06:01 | Day surgery (SDC) | payer OTHER ==
[2020-12-23 06:36] VITALS: BMI 51.0
[2020-12-23] MEDS ORDERED: KETAMINE HCL 500 MG/10 ML VIAL ONE (07:23)
[2020-12-23] MEDS ORDERED: KETOROLAC TROMETHAMINE 30 MG/1 ML VIAL ONE (07:28)
[2020-12-23] MEDS ORDERED: METOPROLOL TARTRATE 5 MG/5 ML VIAL ONE (07:33)
[2020-12-23] MEDS ORDERED: ACETAMINOPHEN 500 MG TABLET (FP) ONE (07:56)
[2020-12-23 08:36] VITALS: TEMP 97.8
[2020-12-23 09:19] VITALS: BP 130/90; PULSE 78
[2020-12-23] MEDS ORDERED: ACETAMINOPHEN 500 MG TABLET (FP) PO PRN (13:40)
[2020-12-23] MEDS ORDERED: PROMETHAZINE HCL 25 MG/1 ML VIAL IVPUSH PRN (13:40)
[2020-12-23] MEDS ORDERED: LACTATED RINGERS SOLUTION 1,000 ML IV SCH (13:45)
== END 2020-12-23 08:50 | disposition home or self-care (01) ==
LOC: FECT 06:01
PROVIDERS: ATTEND Psychiatry & Neurology Psychiatry
PROC: GZB4ZZZ Other Electroconvulsive Therapy (ICD-10-PCS; principal; 2020-12-23 07:30)
DX: F33.2 Major depressive disorder, recurrent severe without psychotic features (principal)
CPT/HCPCS: 90870; 94760

== ENCOUNTER 2021-01-03 06:08 | Day surgery (SDC) | payer OTHER ==
[2021-01-03 06:38] VITALS: BMI 50.5
[2021-01-03] MEDS ORDERED: KETAMINE HCL 500 MG/10 ML VIAL ONE (07:07)
[2021-01-03 07:57] VITALS: TEMP 98.5
[2021-01-03 09:26] VITALS: BP 133/89; PULSE 77
== END 2021-01-03 08:40 | disposition home or self-care (01) ==
LOC: FECT 06:08
PROVIDERS: ATTEND Psychiatry & Neurology Psychiatry
PROC: GZB4ZZZ Other Electroconvulsive Therapy (ICD-10-PCS; principal; 2021-01-03 07:30)
DX: F32.9 Major depressive disorder, single episode, unspecified (principal)
CPT/HCPCS: 90870; 94760

== ENCOUNTER 2021-01-06 06:05 | Day surgery (SDC) | payer OTHER ==
[2021-01-06 06:35] VITALS: BMI 50.7
[2021-01-06] MEDS ORDERED: PROPOFOL 20 ML ONE (06:56)
[2021-01-06] MEDS ORDERED: ONDANSETRON 4 MG/2 ML VIAL ONE (06:57)
[2021-01-06] MEDS ORDERED: LIDOCAINE HCL/PF 2% SDV 5ML VIAL ONE (06:57)
[2021-01-06] MEDS ORDERED: KETAMINE HCL 500 MG/10 ML VIAL ONE (07:09)
[2021-01-06 08:15] VITALS: BP 124/76; PULSE 76; TEMP 98.1
== END 2021-01-06 08:35 | disposition home or self-care (01) ==
LOC: FECT 06:05
PROVIDERS: ATTEND Psychiatry & Neurology Psychiatry
PROC: GZB4ZZZ Other Electroconvulsive Therapy (ICD-10-PCS; principal; 2021-01-06 07:30)
DX: F32.9 Major depressive disorder, single episode, unspecified (principal)
CPT/HCPCS: 90870; 94760

== ENCOUNTER 2021-01-10 06:09 | Day surgery (SDC) | payer OTHER ==
[2021-01-10 06:36] VITALS: BMI 50.2
[2021-01-10] MEDS ORDERED: KETAMINE HCL 500 MG/10 ML VIAL ONE (07:21)
[2021-01-10] MEDS ORDERED: KETOROLAC TROMETHAMINE 30 MG/1 ML VIAL ONE (07:27)
[2021-01-10 07:54] VITALS: TEMP 98.2
[2021-01-10 08:39] VITALS: BP 116/76; PULSE 88
== END 2021-01-10 08:40 | disposition home or self-care (01) ==
LOC: FECT 06:09
PROVIDERS: ATTEND Psychiatry & Neurology Psychiatry
PROC: GZB4ZZZ Other Electroconvulsive Therapy (ICD-10-PCS; principal; 2021-01-10 07:30)
DX: F32.9 Major depressive disorder, single episode, unspecified (principal)
CPT/HCPCS: 90870; 94760

== ENCOUNTER 2021-01-13 05:56 | Day surgery (SDC) | payer OTHER ==
[2021-01-13 06:46] VITALS: BMI 50.4
[2021-01-13] MEDS ORDERED: KETAMINE HCL 500 MG/10 ML VIAL ONE (07:22)
[2021-01-13 07:55] VITALS: TEMP 98.6
[2021-01-13 08:51] VITALS: BP 139/88; PULSE 77
== END 2021-01-13 08:40 | disposition home or self-care (01) ==
LOC: FECT 05:56
PROVIDERS: ATTEND Psychiatry & Neurology Psychiatry
PROC: GZB4ZZZ Other Electroconvulsive Therapy (ICD-10-PCS; principal; 2021-01-13 07:30)
DX: F32.9 Major depressive disorder, single episode, unspecified (principal)
CPT/HCPCS: 90870; 94760

== ENCOUNTER 2021-01-17 05:51 | Day surgery (SDC) | payer OTHER ==
[2021-01-17 06:36] VITALS: BMI 50.4
[2021-01-17] MEDS ORDERED: KETAMINE HCL 500 MG/10 ML VIAL ONE (07:22)
[2021-01-17 07:57] VITALS: TEMP 98.6
[2021-01-17 08:54] VITALS: BP 122/85; PULSE 77
== END 2021-01-17 08:50 | disposition home or self-care (01) ==
LOC: FECT 05:51
PROVIDERS: ATTEND Psychiatry & Neurology Psychiatry
PROC: GZB4ZZZ Other Electroconvulsive Therapy (ICD-10-PCS; principal; 2021-01-17 07:30)
DX: F32.9 Major depressive disorder, single episode, unspecified (principal)
CPT/HCPCS: 90870; 94760

== ENCOUNTER 2021-01-20 07:05 | Day surgery (SDC) | payer OTHER ==
[2021-01-20 07:45] VITALS: BMI 49.8
[2021-01-20] MEDS ORDERED: KETOROLAC TROMETHAMINE 30 MG/1 ML VIAL ONE (09:25)
[2021-01-20] MEDS ORDERED: ONDANSETRON 4 MG/2 ML VIAL ONE (09:25)
[2021-01-20] MEDS ORDERED: KETAMINE HCL 500 MG/10 ML VIAL ONE (09:25)
[2021-01-20] MEDS ORDERED: LIDOCAINE 1% P/F 10 MG/ML VIAL ONE (09:26)
[2021-01-20] MEDS ORDERED: PROPOFOL 20 ML ONE ×2 (09:41)
[2021-01-20 10:46] VITALS: TEMP 98.3
[2021-01-20 11:00] VITALS: BP 133/89; PULSE 74
[2021-01-20] MEDS ORDERED: ACETAMINOPHEN 500 MG TABLET (FP) PO PRN (11:29)
== END 2021-01-20 11:05 | disposition home or self-care (01) ==
LOC: FECT 07:05
PROVIDERS: ATTEND Psychiatry & Neurology Psychiatry
PROC: GZB4ZZZ Other Electroconvulsive Therapy (ICD-10-PCS; principal; 2021-01-20 09:30)
DX: F32.9 Major depressive disorder, single episode, unspecified (principal)
CPT/HCPCS: 90870; 94760

== ENCOUNTER 2021-01-24 05:54 | Day surgery (SDC) | payer OTHER ==
[2021-01-17 14:02] VITALS: BMI 50.4
[2021-01-24] MEDS ORDERED: KETAMINE HCL 500 MG/10 ML VIAL ONE (07:08)
[2021-01-24] MEDS ORDERED: PROPOFOL 20 ML ONE (07:17)
[2021-01-24] MEDS ORDERED: LIDOCAINE HCL/PF 2% SDV 5ML VIAL ONE (07:17)
[2021-01-24] MEDS ORDERED: SUCCINYLCHOLINE CHLORIDE 200 MG/10 ML SYRINGE ONE (07:17)
[2021-01-24] MEDS ORDERED: GLYCOPYRROLATE 0.2 MG/1 ML VIAL ONE (08:07)
[2021-01-24 08:10] VITALS: TEMP 98
[2021-01-24 08:30] VITALS: BP 122/88; PULSE 86
== END 2021-01-24 08:40 | disposition home or self-care (01) ==
LOC: FECT 05:54
PROVIDERS: ATTEND Psychiatry & Neurology Psychiatry
PROC: GZB4ZZZ Other Electroconvulsive Therapy (ICD-10-PCS; principal; 2021-01-24 09:00)
DX: F32.9 Major depressive disorder, single episode, unspecified (principal)
CPT/HCPCS: 90870; 94760

== ENCOUNTER 2021-01-27 05:57 | Day surgery (SDC) | payer OTHER ==
[2021-01-17 17:20] VITALS: BMI 50.4
[2021-01-27] MEDS ORDERED: KETAMINE HCL 500 MG/10 ML VIAL ONE (07:24)
[2021-01-27 08:12] VITALS: TEMP 98.9
[2021-01-27 09:34] VITALS: BP 130/89; PULSE 79
== END 2021-01-27 09:00 | disposition home or self-care (01) ==
LOC: FECT 05:57
PROVIDERS: ATTEND Psychiatry & Neurology Psychiatry
PROC: GZB4ZZZ Other Electroconvulsive Therapy (ICD-10-PCS; principal; 2021-01-27 07:30)
DX: F32.9 Major depressive disorder, single episode, unspecified (principal)
CPT/HCPCS: 90870; 94760

== ENCOUNTER 2021-01-31 06:04 | Day surgery (SDC) | payer OTHER ==
[2021-01-31 06:42] VITALS: BMI 50.5
[2021-01-31] MEDS ORDERED: KETAMINE HCL 500 MG/10 ML VIAL ONE (07:38)
[2021-01-31] MEDS ORDERED: PROPOFOL 20 ML ONE (07:46)
[2021-01-31] MEDS ORDERED: SUCCINYLCHOLINE CHLORIDE 200 MG/10 ML SYRINGE ONE (07:46)
[2021-01-31] MEDS ORDERED: ONDANSETRON 4 MG/2 ML VIAL ONE (07:57)
[2021-01-31] MEDS ORDERED: KETOROLAC TROMETHAMINE 30 MG/1 ML VIAL ONE (07:57)
[2021-01-31 08:33] VITALS: TEMP 98.7
[2021-01-31 08:59] VITALS: BP 122/90; PULSE 88
[2021-01-31 09:17] LABS: BASO % 1.4 % (0-2.0); EOS % 5.7 % (0-4.5); HEMATOCRIT 40.8 % (35.4-49); HEMOGLOBIN 13.7 GM/dl (11.7-16.9); LYMPH % 27.8 % (8-40); MCH 29.8 pg (25.7-33.7); MCHC 33.7 g/dl (32.0-35.9); MEAN CELL VOLUME 88.5 fl (80-96); MONO % 7.2 % (3.8-10.2); NEUT % 57.9 % (42.8-82.8); PLATELET COUNT 210 10^3/uL (134-434); RBC 4.61 M/mm3 (4.00-5.60); RDW 12.9 % (11.9-15.9)
[2021-01-31 09:26] LABS: ALBUMIN 3.8 g/dl (3.4-5.0); BILIRUBIN,TOTAL 0.4 mg/dl (0.2-1); CALCIUM 8.4 mg/dl (8.5-10); CREATININE 0.8 mg/dl (0.55-1.3); MAGNESIUM 1.9 mg/dL (1.8-2.4); TOT PROT 6.4 g/dl (6.4-8.2)
== END 2021-01-31 09:10 | disposition home or self-care (01) ==
LOC: FECT 06:04
PROVIDERS: ATTEND Psychiatry & Neurology Psychiatry
PROC: GZB4ZZZ Other Electroconvulsive Therapy (ICD-10-PCS; principal; 2021-01-31 07:30)
DX: F32.9 Major depressive disorder, single episode, unspecified (principal)
CPT/HCPCS: 36415; 80053; 83735; 85025; 90870; 93005; 94760

== ENCOUNTER 2021-02-03 05:58 | Day surgery (SDC) | payer OTHER ==
[2021-02-03 06:44] VITALS: BMI 50.4
[2021-02-03] MEDS ORDERED: KETAMINE HCL 500 MG/10 ML VIAL ONE (07:18)
[2021-02-03 08:59] VITALS: BP 140/89; PULSE 88; TEMP 979
== END 2021-02-03 08:45 | disposition home or self-care (01) ==
LOC: FECT 05:58
PROVIDERS: ATTEND Psychiatry & Neurology Psychiatry
PROC: GZB4ZZZ Other Electroconvulsive Therapy (ICD-10-PCS; principal; 2021-02-03 08:00)
DX: F32.9 Major depressive disorder, single episode, unspecified (principal)
CPT/HCPCS: 90870; 94760

== ENCOUNTER 2021-02-07 06:09 | Day surgery (SDC) | payer OTHER ==
[2021-02-03 13:37] VITALS: BMI 50.4
[2021-02-07] MEDS ORDERED: KETAMINE HCL 500 MG/10 ML VIAL ONE (07:38)
[2021-02-07 09:00] VITALS: TEMP 98
[2021-02-07 09:02] VITALS: BP 122/80; PULSE 88
== END 2021-02-07 09:02 | disposition home or self-care (01) ==
LOC: FECT 06:09
PROVIDERS: ATTEND Psychiatry & Neurology Psychiatry
PROC: GZB4ZZZ Other Electroconvulsive Therapy (ICD-10-PCS; principal; 2021-02-07 08:00)
DX: F32.9 Major depressive disorder, single episode, unspecified (principal)
CPT/HCPCS: 90870; 94760

== ENCOUNTER 2021-02-10 08:46 | Day surgery (SDC) | payer OTHER ==
[2021-02-10 09:22] VITALS: BMI 49.6
[2021-02-10] MEDS ORDERED: KETAMINE HCL 500 MG/10 ML VIAL ONE (10:14)
[2021-02-10 11:39] VITALS: BP 128/75; PULSE 77; TEMP 96
[2021-02-11 16:08] LABS: SARS-CoV-2 NAA Not Detected (Not Detected)
== END 2021-02-10 11:50 | disposition home or self-care (01) ==
LOC: FECT 08:46
PROVIDERS: ATTEND Psychiatry & Neurology Psychiatry
PROC: GZB4ZZZ Other Electroconvulsive Therapy (ICD-10-PCS; principal; 2021-02-10 10:00)
DX: F32.9 Major depressive disorder, single episode, unspecified (principal)
CPT/HCPCS: 90870; 94760; C9803; U0003; U0005

== ENCOUNTER 2021-02-14 05:51 | Day surgery (SDC) | payer OTHER ==
[2021-02-09 14:20] VITALS: BMI 50.4
[2021-02-14] MEDS ORDERED: KETAMINE HCL 500 MG/10 ML VIAL ONE (07:38)
[2021-02-14 08:34] VITALS: TEMP 97.8
[2021-02-14 08:58] VITALS: BP 145/82; PULSE 81
== END 2021-02-14 08:58 | disposition home or self-care (01) ==
LOC: FECT 05:51
PROVIDERS: ATTEND Psychiatry & Neurology Psychiatry
PROC: GZB4ZZZ Other Electroconvulsive Therapy (ICD-10-PCS; principal; 2021-02-14 07:30)
DX: F32.9 Major depressive disorder, single episode, unspecified (principal)
CPT/HCPCS: 90870; 94760; C9803; U0003; U0005

== ENCOUNTER 2021-02-17 06:10 | Day surgery (SDC) | payer OTHER ==
[2021-02-17 07:00] VITALS: BMI 49.8
[2021-02-17] MEDS ORDERED: KETAMINE HCL 500 MG/10 ML VIAL ONE (08:01)
[2021-02-17 09:48] VITALS: TEMP 98.1
[2021-02-17 09:54] VITALS: BP 135/71; PULSE 75
== END 2021-02-17 09:45 | disposition home or self-care (01) ==
LOC: FECT 06:10
PROVIDERS: ATTEND Psychiatry & Neurology Psychiatry
PROC: GZB4ZZZ Other Electroconvulsive Therapy (ICD-10-PCS; principal; 2021-02-17 08:00)
DX: F32.9 Major depressive disorder, single episode, unspecified (principal)
CPT/HCPCS: 90870; 94760; C9803; U0003; U0005

== ENCOUNTER 2021-02-21 06:07 | Day surgery (SDC) | payer OTHER ==
[2021-02-21 06:36] VITALS: BMI 47.5
[2021-02-21] MEDS ORDERED: KETAMINE HCL 500 MG/10 ML VIAL ONE (07:25)
[2021-02-21 08:15] VITALS: PULSE 89; TEMP 98.4
[2021-02-21 09:11] VITALS: BP 142/82
== END 2021-02-21 09:00 | disposition home or self-care (01) ==
LOC: FECT 06:07
PROVIDERS: ATTEND Psychiatry & Neurology Psychiatry
PROC: GZB4ZZZ Other Electroconvulsive Therapy (ICD-10-PCS; principal; 2021-02-21 10:00)
DX: F33.2 Major depressive disorder, recurrent severe without psychotic features (principal)
CPT/HCPCS: 90870; 94760; C9803; U0003; U0005

== ENCOUNTER 2021-02-24 05:57 | Day surgery (SDC) | payer OTHER ==
[2021-02-24 06:42] VITALS: BMI 49.4
[2021-02-24] MEDS ORDERED: KETAMINE HCL 500 MG/10 ML VIAL ONE (07:22)
[2021-02-24 08:54] VITALS: TEMP 98.4
[2021-02-24 09:09] VITALS: BP 134/98; PULSE 80
== END 2021-02-24 09:15 | disposition home or self-care (01) ==
LOC: FECT 05:57
PROVIDERS: ATTEND Psychiatry & Neurology Psychiatry
PROC: GZB4ZZZ Other Electroconvulsive Therapy (ICD-10-PCS; principal; 2021-02-24 07:30)
DX: F32.9 Major depressive disorder, single episode, unspecified (principal)
CPT/HCPCS: 90870; 94760; C9803; U0003; U0005

== ENCOUNTER 2021-03-01 05:59 | Day surgery (SDC) | payer OTHER ==
[2021-03-01 06:29] VITALS: BMI 49.4
[2021-03-01] MEDS ORDERED: KETAMINE HCL 500 MG/10 ML VIAL ONE (07:02)
[2021-03-01 08:16] VITALS: TEMP 98
[2021-03-01 08:44] VITALS: BP 128/76; PULSE 72
== END 2021-03-01 08:46 | disposition home or self-care (01) ==
LOC: FECT 05:59
PROVIDERS: ATTEND Psychiatry & Neurology Psychiatry
PROC: GZB4ZZZ Other Electroconvulsive Therapy (ICD-10-PCS; principal; 2021-03-01 09:30)
DX: F32.9 Major depressive disorder, single episode, unspecified (principal)
CPT/HCPCS: 90870; 94760; C9803; U0003; U0005

== ENCOUNTER 2021-03-03 08:39 | Day surgery (SDC) | payer OTHER ==
[2021-02-25 09:25] VITALS: BMI 49.6
[2021-03-03 09:10] VITALS: TEMP 98.5
[2021-03-03] MEDS ORDERED: PROPOFOL 20 ML ONE ×2 (10:07)
[2021-03-03] MEDS ORDERED: SUCCINYLCHOLINE CHLORIDE 200 MG/10 ML SYRINGE ONE (10:07)
[2021-03-03] MEDS ORDERED: KETAMINE HCL 200 MG/20 ML VIAL ONE (10:21)
[2021-03-03 11:36] VITALS: BP 133/91; PULSE 86
== END 2021-03-03 11:45 | disposition home or self-care (01) ==
LOC: FECT 08:39
PROVIDERS: ATTEND Psychiatry & Neurology Psychiatry
PROC: GZB4ZZZ Other Electroconvulsive Therapy (ICD-10-PCS; principal; 2021-03-03 09:30)
DX: F32.9 Major depressive disorder, single episode, unspecified (principal)
CPT/HCPCS: 90870; 94760; C9803; U0003; U0005

== ENCOUNTER 2021-03-11 06:06 | Day surgery (SDC) | payer OTHER ==
[2021-03-11 06:36] VITALS: BMI 48.6
[2021-03-11 08:35] VITALS: TEMP 98.2
[2021-03-11 09:39] VITALS: BP 125/83; PULSE 82
== END 2021-03-11 09:05 | disposition home or self-care (01) ==
LOC: FECT 06:06
PROVIDERS: ATTEND Psychiatry & Neurology Psychiatry
PROC: GZB4ZZZ Other Electroconvulsive Therapy (ICD-10-PCS; principal; 2021-03-11 08:30)
DX: F32.9 Major depressive disorder, single episode, unspecified (principal)
CPT/HCPCS: 90870; 94760

== ENCOUNTER 2021-03-14 08:51 | Day surgery (SDC) | payer OTHER ==
[2021-03-14 09:40] VITALS: TEMP 98.1; BMI 48.8
[2021-03-14] MEDS ORDERED: KETAMINE HCL 500 MG/10 ML VIAL ONE (10:39)
[2021-03-14] MEDS ORDERED: PROPOFOL 20 ML ONE (10:46)
[2021-03-14 12:12] VITALS: BP 131/91; PULSE 77
== END 2021-03-14 12:10 | disposition home or self-care (01) ==
LOC: FECT 08:51
PROVIDERS: ATTEND Psychiatry & Neurology Psychiatry
PROC: GZB4ZZZ Other Electroconvulsive Therapy (ICD-10-PCS; principal; 2021-03-14 11:00)
DX: F32.9 Major depressive disorder, single episode, unspecified (principal)
CPT/HCPCS: 90870; 94760; C9803; U0003; U0005

== ENCOUNTER 2021-03-17 06:10 | Day surgery (SDC) | payer OTHER ==
[2021-03-17 06:40] VITALS: BMI 48.8
[2021-03-17] MEDS ORDERED: PROPOFOL 20 ML ONE ×2 (07:46)
[2021-03-17] MEDS ORDERED: SUCCINYLCHOLINE CHLORIDE 200 MG/10 ML SYRINGE ONE (07:46)
[2021-03-17] MEDS ORDERED: KETAMINE HCL 200 MG/20 ML VIAL ONE (07:47)
[2021-03-17 08:37] VITALS: TEMP 98.6
[2021-03-17 09:11] VITALS: BP 136/82; PULSE 72
== END 2021-03-17 09:20 | disposition home or self-care (01) ==
LOC: FECT 06:10
PROVIDERS: ATTEND Psychiatry & Neurology Psychiatry
PROC: GZB4ZZZ Other Electroconvulsive Therapy (ICD-10-PCS; principal; 2021-03-17 07:30)
DX: F32.9 Major depressive disorder, single episode, unspecified (principal)
CPT/HCPCS: 90870; 94760; C9803; U0003; U0005

== ENCOUNTER 2021-03-21 06:29 | Day surgery (SDC) | payer OTHER ==
[2021-03-21 07:26] VITALS: BMI 48.6
[2021-03-21] MEDS ORDERED: KETAMINE HCL 500 MG/10 ML VIAL ONE (08:01)
[2021-03-21 09:15] VITALS: TEMP 98.4
[2021-03-21 09:40] VITALS: BP 138/76; PULSE 74
== END 2021-03-21 09:43 | disposition home or self-care (01) ==
LOC: FECT 06:29
PROVIDERS: ATTEND Psychiatry & Neurology Psychiatry
PROC: GZB4ZZZ Other Electroconvulsive Therapy (ICD-10-PCS; principal; 2021-03-21 08:30)
DX: F32.9 Major depressive disorder, single episode, unspecified (principal)
CPT/HCPCS: 90870; 94760; C9803; U0003; U0005

== ENCOUNTER → 2021-03-24 | Day surgery (SDC) | payer OTHER ==
[~2021-03-24] MED LIST changes: -ACETAMINOPHEN 325 MG TABLET (FP) PO PRN; +KETAMINE HCL 500 MG/10 ML VIAL ONE; -LACTATED RINGERS SOLUTION 1,000 ML IV SCH; +LIDOCAINE HCL/PF 2% SDV 5ML VIAL ONE; -PROMETHAZINE HCL 25 MG/1 ML VIAL IVPUSH PRN; +PROPOFOL 20 ML ONE
[2021-03-24 06:35] VITALS: BMI 48.2
[2021-03-24 08:16] VITALS: PULSE 85
[2021-03-24 08:24] VITALS: BP 119/71; TEMP 98.1
== END | disposition home or self-care (01) ==
LOC: FECT 06:12
PROVIDERS: ATTEND Psychiatry & Neurology Psychiatry
PROC: GZB4ZZZ Other Electroconvulsive Therapy (ICD-10-PCS; principal; 2021-03-24 07:30)
DX: F32.9 Major depressive disorder, single episode, unspecified (principal)
CPT/HCPCS: 90870; 94760; C9803; U0003; U0005

== ENCOUNTER 2021-03-28 05:53 | Day surgery (SDC) | payer OTHER ==
[2021-03-24 11:34] VITALS: BMI 48.2
[2021-03-28] MEDS ORDERED: PROPOFOL 20 ML ONE (08:38)
[2021-03-28] MEDS ORDERED: SUCCINYLCHOLINE CHLORIDE 200 MG/10 ML SYRINGE ONE (08:38)
[2021-03-28] MEDS ORDERED: KETAMINE HCL 200 MG/20 ML VIAL ONE (08:38)
[2021-03-28 09:35] VITALS: TEMP 98.3
[2021-03-28 09:52] VITALS: BP 137/89; PULSE 98
== END 2021-03-28 09:52 | disposition home or self-care (01) ==
LOC: FECT 05:53
PROVIDERS: ATTEND Psychiatry & Neurology Psychiatry
PROC: GZB4ZZZ Other Electroconvulsive Therapy (ICD-10-PCS; principal; 2021-03-28 08:30)
DX: F32.9 Major depressive disorder, single episode, unspecified (principal)
CPT/HCPCS: 90870; 94760; C9803; U0003; U0005

== ENCOUNTER 2021-03-31 06:38 | Day surgery (SDC) | payer OTHER ==
[2021-03-31] MEDS ORDERED: KETAMINE HCL 500 MG/10 ML VIAL ONE (07:47)
[2021-03-31] MEDS ORDERED: PROPOFOL 20 ML ONE (07:47)
[2021-03-31] MEDS ORDERED: SUCCINYLCHOLINE CHLORIDE 200 MG/10 ML SYRINGE ONE (07:48)
[2021-03-31 09:22] VITALS: TEMP 98
[2021-03-31 09:44] VITALS: BP 126/82; PULSE 76
== END 2021-03-31 09:45 | disposition home or self-care (01) ==
LOC: FECT 06:38
PROVIDERS: ATTEND Psychiatry & Neurology Psychiatry
PROC: GZB4ZZZ Other Electroconvulsive Therapy (ICD-10-PCS; principal; 2021-03-31 08:30)
DX: F32.9 Major depressive disorder, single episode, unspecified (principal)
CPT/HCPCS: 90870; 94760; C9803; U0003; U0005